=== PATIENT | female | born 1950 | race Caucasian/White ===

== ENCOUNTER 2017-08-16 14:47 | Outpatient (RCR) | payer MEDICARE, OTHER ==
--- NOTE | 2017-08-13 13:10 | Diagnostic Imaging Report ---
INDICATION: Cough and chest pain. TECHNIQUE: PA and lateral views of the chest were obtained at 1:22 PM. FINDINGS: The heart is normal in size. The mediastinal silhouette is unremarkable. The lungs are clear. There is no pneumothorax or pleural fluid. A Port-A-Cath is seen with the tip overlying the mid SVC. There is no acute appearing finding. There is a right shoulder prosthesis. The patient has had prior lumbar fusion. IMPRESSION: No acute process in the chest. Dictated by: Dictated on workstation # [id number]
[~2017-08-16 14:47] MED LIST: ASP81CT PO; D50KC PO; ESOM10SU PO; FAMO20TA73 PO; FENO135C PO; LEVO500T69 PO; LORA5SOL57 PO; LVT.15T PO; METF500T8 PO; METR500T PO; OMEP-10 PO; PRD50T PO; PRED20TA PO; PROP60TA16 PO; VITORIN PO; VNL75CCR PO
== END 2017-11-11 | disposition home or self-care (01) ==
LOC: RAD 14:47
PROVIDERS: ATTEND Family Medicine
DX: R07.9 Chest pain, unspecified (principal); R05 Cough
CPT/HCPCS: 71046; 87070; 87205

== ENCOUNTER → 2017-09-12 | Outpatient (CLI) | payer MEDICARE, OTHER ==
--- NOTE | 2017-09-12 13:42 | Diagnostic Imaging Report ---
CLINICAL INDICATION: Patient with migraines, equilibrium issues x2 days. EXAM: Axial CT scan of the brain performed without IV contrast. COMPARISON: Head CT without IV contrast dated 05/16/2009. MRI of the brain without and with IV contrast dated 10/12/2010. FINDINGS: There is no evidence of acute cerebral infarct, intracranial hemorrhage, or gross mass effect. The brain parenchymal volume appears appropriate for patient's age. There is normal gerber-white matter distinction. There is no significant midline shift or herniation. There is no evidence of hydrocephalus. The basal cisterns are unremarkable. The skull, extracranial soft tissue, and orbits are unremarkable. The paranasal sinuses are unremarkable. Temporal bones show no significant abnormality. IMPRESSION: Unremarkable CT scan of the brain for age. Dictated by: Dictated on workstation # [id number]
== END ==
LOC: RAD 12:54
PROVIDERS: ATTEND Family Medicine
DX: G43.909 Migraine, unspecified, not intractable, without status migrainosus (principal); R41.0 Disorientation, unspecified
CPT/HCPCS: 70450

== ENCOUNTER → 2019-01-06 | Outpatient (CLI) | payer MEDICARE, OTHER ==
--- NOTE | 2019-01-06 14:44 | Diagnostic Imaging Report ---
INDICATION: Dizziness, shortness of breath. FINDINGS: Right IJ catheter is at the SVC. There is right shoulder replacement. The lungs are clear. No failure, effusion, or pneumothorax. IMPRESSION: No acute-appearing abnormality. Dictated by: Dictated on workstation # [id number]
== END ==
LOC: RAD 13:54
PROVIDERS: ATTEND Family Medicine
DX: R06.02 Shortness of breath (principal); R05 Cough; R42 Dizziness and giddiness; Z95.828 Presence of other vascular implants and grafts
CPT/HCPCS: 71046

== ENCOUNTER 2020-01-27 05:31 | Outpatient (RCR) | payer MEDICARE, OTHER ==
[~2020-01-27] VITALS: Ht 170.2 cm; Wt 104.5 kg
[~2020-01-27 05:31] MED LIST changes: +ASPI-999 PO; +CALC-250 PO; +CITA10TA12 PO; +HYDR200T46 PO; +LEVO137T2 PO; +MV-M1TAB57 PO; +PROP20TA5 PO
== END 2020-01-27 11:00 | disposition home or self-care (01) ==
LOC: PREOP 05:31
PROVIDERS: ATTEND Surgery
DX: Z01.812 Encounter for preprocedural laboratory examination (principal); R10.13 Epigastric pain; Z20.828 Contact with and (suspected) exposure to other viral communicable diseases
CPT/HCPCS: 87635

== ENCOUNTER → 2020-03-23 | Outpatient (CLI) | payer MEDICARE, OTHER ==
[~2020-03-23] MED LIST changes: +PANT40TA2 PO; +SUCR1TAB36 PO
--- NOTE | 2020-03-23 12:50 | Diagnostic Imaging Report ---
EXAMINATION: CHEST (PA AND LATERAL) CLINICAL INDICATION: 70-year-old female, chest tightness. COMPARISON: January 06, 2019. FINDINGS: There is a right total reverse shoulder prosthesis. There is cervical spine hardware. There is a right-sided port catheter with tip overlying the mid SVC. Stable overall appearance of the cardia mediastinal silhouette. There are streaky opacities in the left midlung and right mid to lower lung zone which are a change since the comparison exam. There is no identified pneumothorax. There is no pleural effusion. There are degenerative changes of the spine. There is incompletely imaged lumbar spine hardware. IMPRESSION: 1. New streaky opacities in the left midlung and right mid to lower lung zone which may relate to infiltrate and/or atelectasis. Dictated by: Dictated on workstation # [id number]
== END ==
LOC: RAD 12:03
PROVIDERS: ATTEND Family Medicine
DX: R07.89 Other chest pain (principal); R91.8 Other nonspecific abnormal finding of lung field; Z20.828 Contact with and (suspected) exposure to other viral communicable diseases
CPT/HCPCS: 71046

== ENCOUNTER 2021-03-01 13:07 | Day surgery (SDC) | payer MEDICARE, OTHER ==
[~2021-03-01] VITALS: Ht 168.9 cm; Wt 110.9 kg
[2021-03-01] MEDS ORDERED: NS IV 1000 ML 1,000 ML IV ONE (13:30)
[2021-03-01 14:10] LABS: BASOPHILS # (AUTO) 0.1 10^3/uL (0.0-0.1); BASOPHILS % (AUTO) 1 % (0-10); EOSINOPHILS # (AUTO) 0.2 10^3/uL (0.0-0.3); EOSINOPHILS % (AUTO) 3 % (0-10); HEMATOCRIT 35 % (35-52); HEMOGLOBIN 11.4 g/dL (11.5-16.0); LYMPHOCYTES # (AUTO) 1.6 10^3/uL (1.0-4.0); LYMPHOCYTES % (AUTO) 20 % (12-44); MEAN CORPUSCULAR HEMOGLOBIN 30 pg (25-34); MEAN CORPUSCULAR HGB CONC 32 g/dL (32-36); MEAN CORPUSCULAR VOLUME 93 fL (80-99); MEAN PLATELET VOLUME 9.5 fL (9.0-12.2); MONOCYTES # (AUTO) 0.8 10^3/uL (0.0-1.0); MONOCYTES % (AUTO) 10 % (0-12); NEUTROPHILS # (AUTO) 5.2 10^3/uL (1.8-7.8); NEUTROPHILS % (AUTO) 66 % (42-75); PLATELET COUNT 298 10^3/uL (130-400); WHITE BLOOD COUNT 7.9 10^3/uL (4.3-11.0)
[2021-03-01 14:40] LABS: ALBUMIN 3.6 GM/DL (3.2-4.5); BILIRUBIN,TOTAL 0.3 MG/DL (0.1-1.0); CALCIUM 8.9 MG/DL (8.5-10.1); CREATININE SERUM 0.79 MG/DL (0.60-1.30); TOTAL PROTEIN 6.3 GM/DL (6.4-8.2)
[2021-03-01 15:05] VITALS: BP 111/69
== END 2021-03-01 15:05 | disposition home or self-care (01) ==
LOC: SDC 13:07
PROVIDERS: ATTEND Family Medicine
DX: I95.9 Hypotension, unspecified (principal); R55 Syncope and collapse
CPT/HCPCS: 36415; 80053; 85025; 96360

== ENCOUNTER 2021-08-14 11:30 | Emergency (ER) | payer MEDICARE, OTHER ==
[~2021-08-14] VITALS: Ht 170.2 cm; Wt 113.4 kg
--- NOTE | 2021-08-14 11:46 | ED Trauma-Multisystem ---
General Chief Complaint: Trauma-Non Activation Stated Complaint: SYNCOPE Source of Information: Patient Exam Limitations: No Limitations History of Present Illness Date Seen by Provider: Aug 14, 2021 Time Seen by Provider: 11:32 Initial Comments Patient is a 71-year-old female who was brought from the waiting area in the hospital after falling out of a wooden chair. Patient states that the chair gave way and she fell over to the side, onto her back, right hip and subsequently her left shoulder. She did hit her head on the floor/chair. No loss of consciousness was reported. She is complaining of left shoulder and clavicle pain. She is complaining of right hip pain, midthoracic back pain. She is not nauseous. She is not vomiting. No chest pain or abdominal pain. No recent illnesses. She is on aspirin daily. No other blood thinners. She was not able to get up from the floor under her own power. She was placed in a cervical collar and loaded onto a backboard, then onto a stretcher and brought to the emergency department. She has not eaten this morning. All other review of systems reviewed and negative except as stated Occurred: Just Prior to Arrival Severity: Mild ("3" now that she is on the bed off the back coard) Pain/Injury Location: Back, Lower Extremity (right hip), Upper Extremity (left shoulder), Neck Method of Injury: Fall Modifying Factors: No Movement Loss of Consciousness: No Loss of Consciousness Associated Symptoms (Fall): Denies Symptoms Allergies and Home Medications Allergies Coded Allergies: ampicillin (Verified Allergy, Unknown, 01/25/20) diazepam (Verified Allergy, Unknown, 01/25/20) diphenhydramine (Verified Allergy, Unknown, seizures, 01/25/20) propoxyphene HCl (Verified Allergy, Unknown, 01/25/20) Patient Home Medication List Home Medication List Reviewed: Yes Aspirin (Aspirin) 81 Mg Tab.chew, 81 MG PO DAILY, (Reported) Entered as Reported by: BRADFORD CURRY on 01/25/20 1344 Cholecalciferol (Vitamin D3) (Vitamin D3) 125 Mcg Tablet, 125 MCG PO DAILY, (Reported) Entered as Reported by: BRADFORD CURRY on 01/25/20 1344 Citalopram Hydrobromide (Celexa) 10 Mg Tablet, 20 MG PO DAILY, (Reported) Entered as Reported by: BRADFORD CURRY on 01/25/20 1344 Hydroxychloroquine Sulfate (Hydroxychloroquine Sulfate) 200 Mg Tablet, 200 MG PO BID, (Reported) Entered as Reported by: BRADFORD CURRY on 01/25/20 1344 Levothyroxine Sodium (Levothyroxine Sodium) 137 Mcg Tablet, 137 MCG PO DAILY, (Reported) Entered as Reported by: BRADFORD CURRY on 01/25/20 1344 Mv-Mn/Folic Acid/Calcium/Vit K (Women's 50 Plus Multivit Tab) 1 Each Tablet, 1 EACH PO DAILY, (Reported) Entered as Reported by: BRADFORD CURRY on 01/25/20 1344 Pantoprazole Sodium (Protonix) 40 Mg Tablet.dr, 40 MG PO DAILY Prescribed by: RITA DURAN on 02/01/20 0853 Propranolol HCl (Propranolol HCl) 20 Mg Tablet, 20 MG PO BID, (Reported) Entered as Reported by: BRADFORD CURRY on 01/25/20 1344 Sucralfate (Carafate) 1 Gm Tablet, 1 GM PO QID Prescribed by: RITA DURAN on 02/01/20 0853 Review of Systems Review of Systems Constitutional: see HPI Eyes: No Symptoms Reported Ears: No Symptoms Reported Nose: No Symptoms Reported Mouth: No Symptoms Reported Throat: No Symptoms to Report Respiratory: no symptoms reported Cardiovascular: No Symptoms Reported Gastrointestinal: no symptoms reported Genitourinary: no symptoms reported : No Musculoskeletal: back pain, joint pain (left shoulder, right hip) Skin: no symptoms reported All Other Systems Reviewed Negative Unless Noted: Yes Past Gabfski-Bnnlha-Lylivy Hx Seasonal Allergies Seasonal Allergies: Yes Past Medical History Surgeries: Yes (bilat TKR, bilat feet, bilat hips rep, bilat shoulder, hiatal hernia, back ) Abdominal, Gallbladder, Hysterectomy, Orthopedic Respiratory: Yes (chronic bronchitis) Chronic Bronchitis Cardiac: No ("SEVERAL HEART CATHS") Neurological: Yes (BELLS PALSY) Reproductive Disorders: No Genitourinary: No Gastrointestinal: Yes (gerd, peptic ulcer,diverticulosis) Gastroesophageal Reflux, Diverticulosis Musculoskeletal: No Endocrine: Yes Hypothyroidsim HEENT: Yes Glaucoma Cancer: No Psychosocial: Yes Anxiety Integumentary: No Blood Disorders: No Family Medical History No Pertinent Family Hx Physical Exam Vital Signs Vital Signs - First Documented 08/14/21 11:30 Temp 36.2 Pulse 72 Resp 25 B/P (MAP) 141/97 (112) Pulse Ox 97 O2 Delivery Room Air Height, Weight, BMI Height: 5'7" Weight: 205lbs. oz. [id number]; 36.07 BMI Method:Stated General Appearance: WD/WN, Anxious Head: No Evidence of Injury Eyes: Bilateral Eye Normal Inspection, Bilateral Eye PERRL, Bilateral Eye EOMI Ears, Nose, Throat: Hearing Grossly Normal Neck: Other (immobilized in cervical collar) Cardiovascular: Regular Rate, Rhythm, Normal Peripheral Pulses Respiratory: Normal Breath Sounds, No Accessory Muscle Use, No Respiratory Distress Gastrointestinal: Non Tender, Soft Back: Normal Inspection (tenderness about T8-T10. no lesions, erythema - she has a scar in the midline over the Lumbar spine) Extremity: No Calf Tenderness, No Pedal Edema, Pelvis Stable (right hip tenderness over the trochanter, right leg is not shortened or rotated; normal NV; left shoulder tenderness over the AC space; decreased ROM secondary to pain. scar over the front of the left shoulder; distal NVI) Neurologic/Psychiatric: Alert, Oriented x3, No Motor/Sensory Deficits, Normal Mood/Affect Skin: Normal Color, Warm/Dry [place] Coma Score Best Eye Response ([place]): (4) Open Spontaneously Best Verbal Response ([place]): (5) Oriented Best Motor Response ([place]): (6) Obeys Commands [place] Total: 15 Progress/Results/Core Measures Results/Orders My Orders Orders - JOSE OCHOA MD Chest 1 View, Ap/Pa Only (08/14/21 11:39) Pelvis With Right Hip 2-3views (08/14/21 11:39) Shoulder, Left, 3 Views (08/14/21 11:39) Ct Thoracic Spine Wo (08/14/21 11:39) Ct Head/Cervical Spine Wo (08/14/21 11:39) Acetaminophen Tablet (Tylenol Tablet) (08/14/21 13:00) Vital Signs/I&O 08/14/21 11:30 Temp 36.2 Pulse 72 Resp 25 B/P (MAP) 141/97 (112) Pulse Ox 97 O2 Delivery Room Air Progress Progress Note : Time: 12:59 Progress Note Cervical collar removed at this time, patient demonstrates good active range of motion of the head and neck. No complaints of midline pain. No complaints of weakness or paresthesias. X-rays of the pelvis and right hip and left shoulder are reviewed by radiology and read as negative. CT scan of the head, cervical spine and thoracic spine are also read as no acute bony abnormalities. She is offered Tylenol and an ice pack. Recommended to take Tylenol every 6 hours as needed for pain. She advised that she cannot take ibuprofen due to her kidneys. I have advised her to drink plenty of fluids to stay well-hydrated, alternate heat and ice packs. She verbalized understanding. All questions are sought and answered. Diagnostic Imaging Diagonstic Imaging: Xray Plain Films/CT/US/NM/MRI: chest Comments [facility] [place] [facility] REC#: [id number] PT STATUS: REG ER : 1950 PHYSICIAN: JOSE OCHOA MD ADMIT DATE: 08/14/21/ER Draft Date of Exam:08/14/21 CHEST 1 VIEW, AP/PA ONLY INDICATION: Fall and chest pain Frontal chest obtained at 1221 p.m. and compared to 03/23/2020. Heart and mediastinal silhouette are normal in appearance. Right-sided Port-A-Cath is unchanged. There is no focal infiltrate, pneumothorax or pleural fluid. There is no overt bony abnormality in the chest. IMPRESSION: No acute process in the chest. Dictated on workstation # [id number] Dict: 08/14/21 1232 Trans: 08/14/[address] [facility] [id number] Interpreted by: DIMPLE DARBY MD Electronically signed by: Diagonstic Imaging: CT Plain Films/CT/US/NM/MRI: c-spine, head Comments [facility] [place] [facility] REC#: [id number] PT STATUS: REG ER : 1950 PHYSICIAN: JOSE OCHOA MD ADMIT DATE: 08/14/21/ER Draft Date of Exam:08/14/21 CT HEAD/CERVICAL SPINE WO CLINICAL INDICATION: Patient's chair broke falling. Patient has neck pain and left shoulder pain. EXAM: Head CT without IV contrast with sagittal and coronal reformations. Axial CT scan of the cervical spine with sagittal and coronal reformations. Auto Exposure Controls were utilized during the CT exam to meet ALARA standards for radiation dose reduction. COMPARISON: Head CT without contrast dated 09/12/2017. FINDINGS: HEAD CT: There is no evidence of acute cerebral infarct, intracranial hemorrhage, or gross mass effect. The brain parenchymal volume appears appropriate for patient's age. There is normal gerber-white matter distinction. There is no significant midline shift or herniation. There is no evidence of hydrocephalus. The basal cisterns are unremarkable. There is no skull fracture. Hyperostosis frontalis interna is noted. Otherwise, the skull, extracranial soft tissue, and orbits are unremarkable. The paranasal sinuses are unremarkable. Temporal bones show no significant abnormality. CERVICAL SPINE: Of note, the C5 through C7 vertebra are obscured by streak artifact limiting evaluation. There is no gross cervical spine fracture as visualized. Cervical spine is best visualized on the axial sequences and the sagittal reformatted images are most obscured. There are postop changes of the cervical spine with C3-C4 and C6-C7 anterior cervical disk fusion hardware. There is solid bony bridging/fusion seen at these levels. There are cervical spine vertebral body spurs and facet arthropathy. There is no significant neck soft tissue abnormality. Visualized upper lung benz are clear. Right IJ central line is noted. IMPRESSION: 1: There is no evidence of acute intracranial process. There is no skull fracture. 2: Streak artifact obscures portions of the cervical spine. There is no acute cervical spine fracture or dislocation as visualized. Dictated on workstation # [id number] Dict: 08/14/21 1217 Trans: 08/14/21 1230 [id number] Interpreted by: KEISHA TORRES MD Electronically signed by: [facility] Imaging: Xray Plain Films/CT/US/NM/MRI: pelvis, hip Comments [facility] [place] NAME: [facility] REC#: [id number] PT STATUS: REG ER : 1950 PHYSICIAN: JOSE OCHOA MD ADMIT DATE: 08/14/21/ER Draft Date of Exam:08/14/21 PELVIS WITH RIGHT HIP 2-3VIEWS INDICATION: Fall with right hip pain AP pelvis and AP and oblique views of the right hip are obtained. There are bilateral hip prostheses. There is no fracture or acute bony abnormality. There is no evidence of device loosening. There are degenerative findings in the pubic symphysis. IMPRESSION: Postoperative changes with bilateral hip arthroplasties. No acute fracture. Dictated on workstation # [id number] Dict: 08/14/21 1230 Trans: 08/14/[address] [facility] [id number] Interpreted by: DIMPLE DARBY MD Electronically signed by: DiaRafternstic Imaging: Xray Plain Films/CT/US/NM/MRI: other (shoulder) Comments [facility] [place] NAME: [facility] REC#: [id number] PT STATUS: REG ER : 1950 PHYSICIAN: JOSE OCHOA MD ADMIT DATE: 08/14/21/ER Draft Date of Exam:08/14/21 SHOULDER, LEFT, 3 VIEWS INDICATION: Left shoulder pain post injury. TECHNIQUE: AP, oblique, and transscapular views of the left shoulder were obtained. FINDINGS: No fracture or acute bony abnormality is seen. The left shoulder prosthesis is in good alignment with no sign of fracture or device loosening. There is mild degenerative change of the AC joint. IMPRESSION: Left shoulder arthroplasty with no acute appearing abnormality. Dictated on workstation # [id number] Dict: 08/14/21 1231 Trans: 08/14/21 1233 [id number] Interpreted by: DIMPLE DARBY MD Electronically signed by: Diagonstic Imaging: CT Plain Films/CT/US/NM/MRI: other (thoracic spine) Comments [facility] [place] NAME: [facility] REC#: [id number] PT STATUS: REG ER : 1950 PHYSICIAN: JOSE OCHOA MD ADMIT DATE: 08/14/21/ER Draft Date of Exam:08/14/21 CT THORACIC SPINE WO PROCEDURE: CT thoracic spine without contrast. TECHNIQUE: Multiple axial computerized tomography images were obtained from the base of the thoracic spine to the vertex without intravenous contrast. Auto Exposure Controls were utilized during the CT exam to meet ALARA standards for radiation dose reduction. INDICATION: Back pain after injury, fall out of chair. COMPARISON: CT head and C-spine from earlier same day. FINDINGS: There is no acute fracture or traumatic malalignment within the thoracic spine. No paravertebral hematoma. No high-grade spinal stenosis. There are scattered sites of calcified disc protrusions causing mild spinal stenosis in the midthoracic spine. The visualized portions of the ribs are intact. A small amount of dependent atelectasis is present within the visualized lungs. No pleural effusion. IMPRESSION: No acute fracture within the thoracic spine. Dictated on workstation # [id number] Dict: 08/14/21 1215 Trans: 08/14/21 1221 [id number] Interpreted by: TRUDI NDIAYE MD Electronically signed by: Departure Impression Primary Impression: Contusion Qualified Codes: S40.012A - Contusion of left shoulder, initial encounter Additional Impression: Musculoskeletal back pain Disposition: 01 HOME, SELF-CARE Condition: Stable Departure-Patient Inst. Decision time for Depature: 12:52 Referrals: BRENDA VANESSA DO (PCP/Family) Primary Care Physician Patient Instructions: Contusion (DC) Add. Discharge Instructions: Drink plenty of fluids to stay well-hydrated. You can take [id number] Tylenol, 2 extra strength tablets or ibuprofen 600mg (3 tablets), every 6 hours as needed for pain. Always take ibuprofen with food. Follow-up with Dr. Vanessa, your primary care provider. Return to the emergency room for any new, concerning or emergent complaints. Copy Copies To 1: BRENDA VANESSA KATHRYN M MD Aug 14, 2021 11:46
--- NOTE | 2021-08-14 12:21 | Diagnostic Imaging Report ---
PROCEDURE: CT thoracic spine without contrast. TECHNIQUE: Multiple axial computerized tomography images were obtained from the base of the thoracic spine to the vertex without intravenous contrast. Auto Exposure Controls were utilized during the CT exam to meet ALARA standards for radiation dose reduction. INDICATION: Back pain after injury, fall out of chair. COMPARISON: CT head and C-spine from earlier same day. FINDINGS: There is no acute fracture or traumatic malalignment within the thoracic spine. No paravertebral hematoma. No high-grade spinal stenosis. There are scattered sites of calcified disc protrusions causing mild spinal stenosis in the midthoracic spine. The visualized portions of the ribs are intact. A small amount of dependent atelectasis is present within the visualized lungs. No pleural effusion. IMPRESSION: No acute fracture within the thoracic spine. Dictated by: Dictated on workstation # [id number]
--- NOTE | 2021-08-14 12:31 | Diagnostic Imaging Report ---
CLINICAL INDICATION: Patient's chair broke falling. Patient has neck pain and left shoulder pain. EXAM: Head CT without IV contrast with sagittal and coronal reformations. Axial CT scan of the cervical spine with sagittal and coronal reformations. Auto Exposure Controls were utilized during the CT exam to meet ALARA standards for radiation dose reduction. COMPARISON: Head CT without contrast dated 09/12/2017. FINDINGS: HEAD CT: There is no evidence of acute cerebral infarct, intracranial hemorrhage, or gross mass effect. The brain parenchymal volume appears appropriate for patient's age. There is normal gerber-white matter distinction. There is no significant midline shift or herniation. There is no evidence of hydrocephalus. The basal cisterns are unremarkable. There is no skull fracture. Hyperostosis frontalis interna is noted. Otherwise, the skull, extracranial soft tissue, and orbits are unremarkable. The paranasal sinuses are unremarkable. Temporal bones show no significant abnormality. CERVICAL SPINE: Of note, the C5 through C7 vertebra are obscured by streak artifact limiting evaluation. There is no gross cervical spine fracture as visualized. Cervical spine is best visualized on the axial sequences and the sagittal reformatted images are most obscured. There are postop changes of the cervical spine with C3-C4 and C6-C7 anterior cervical disk fusion hardware. There is solid bony bridging/fusion seen at these levels. There are cervical spine vertebral body spurs and facet arthropathy. There is no significant neck soft tissue abnormality. Visualized upper lung benz are clear. Right IJ central line is noted. IMPRESSION: 1: There is no evidence of acute intracranial process. There is no skull fracture. 2: Streak artifact obscures portions of the cervical spine. There is no acute cervical spine fracture or dislocation as visualized. Dictated by: Dictated on workstation # [id number]
--- NOTE | 2021-08-14 12:33 | Diagnostic Imaging Report ---
INDICATION: Left shoulder pain post injury. TECHNIQUE: AP, oblique, and transscapular views of the left shoulder were obtained. FINDINGS: No fracture or acute bony abnormality is seen. The left shoulder prosthesis is in good alignment with no sign of fracture or device loosening. There is mild degenerative change of the AC joint. IMPRESSION: Left shoulder arthroplasty with no acute appearing abnormality. Dictated by: Dictated on workstation # [id number]
--- NOTE | 2021-08-14 12:34 | Diagnostic Imaging Report ---
INDICATION: Fall with right hip pain AP pelvis and AP and oblique views of the right hip are obtained. There are bilateral hip prostheses. There is no fracture or acute bony abnormality. There is no evidence of device loosening. There are degenerative findings in the pubic symphysis. IMPRESSION: Postoperative changes with bilateral hip arthroplasties. No acute fracture. Dictated by: Dictated on workstation # [id number]
--- NOTE | 2021-08-14 12:35 | Diagnostic Imaging Report ---
INDICATION: Fall and chest pain Frontal chest obtained at 1221 p.m. and compared to 03/23/2020. Heart and mediastinal silhouette are normal in appearance. Right-sided Port-A-Cath is unchanged. There is no focal infiltrate, pneumothorax or pleural fluid. There is no overt bony abnormality in the chest. IMPRESSION: No acute process in the chest. Dictated by: Dictated on workstation # [id number]
[2021-08-14] MEDS ORDERED: ACETAMINOPHEN 500 MG TAB (TYLENOL) PO ONE (13:00)
[2021-08-14 13:09] VITALS: BP 152/79
== END 2021-08-14 13:09 | disposition home or self-care (01) ==
LOC: EDUNIT# 11:35 → ER 11:36
DX: S40.012A Contusion of left shoulder, initial encounter (principal); M54.50 Low back pain, unspecified; G51.0 Bell's palsy; E03.9 Hypothyroidism, unspecified; F41.9 Anxiety disorder, unspecified; K21.9 Gastro-esophageal reflux disease without esophagitis; Z79.82 Long term (current) use of aspirin; Z79.890 Hormone replacement therapy; W22.8XXA Striking against or struck by other objects, initial encounter
CPT/HCPCS: 70450; 71045; 72125; 72128; 73030

== ENCOUNTER 2021-10-31 14:11 | Inpatient (IN) | payer MEDICARE, OTHER ==
[~2021-10-31] VITALS: Ht 170 cm; Wt 113.4 kg
[2021-10-31] MEDS ORDERED: AZITHROMYCIN INJECTION 500 MG in NS (IVPB) 250 ML IV ONE (14:45)
[2021-10-31] MEDS ORDERED: PATIENT MAY USE OWN MEDS, ALL PO SCH (14:45)
[2021-10-31] MEDS ORDERED: ONDANSETRON 4 MG/2 ML (SDV) Z0FRAN IVP PRN (15:00)
[2021-10-31 15:18] LABS: BASOPHILS # (AUTO) 0.1 10^3/uL (0.0-0.1); BASOPHILS % (AUTO) 0 % (0-10); EOSINOPHILS % (AUTO) 0 % (0-10); HEMATOCRIT 38 % (35-52); HEMOGLOBIN 12.5 g/dL (11.5-16.0); LYMPHOCYTES # (AUTO) 1.3 10^3/uL (1.0-4.0); LYMPHOCYTES % (AUTO) 9 % (12-44); MEAN CORPUSCULAR HEMOGLOBIN 30 pg (25-34); MEAN CORPUSCULAR HGB CONC 33 g/dL (32-36); MEAN CORPUSCULAR VOLUME 90 fL (80-99); MEAN PLATELET VOLUME 10.3 fL (9.0-12.2); MONOCYTES # (AUTO) 1.7 10^3/uL (0.0-1.0); MONOCYTES % (AUTO) 12 % (0-12); NEUTROPHILS # (AUTO) 11.3 10^3/uL (1.8-7.8); NEUTROPHILS % (AUTO) 79 % (42-75); PLATELET COUNT 164 10^3/uL (130-400); WHITE BLOOD COUNT 14.4 10^3/uL (4.3-11.0)
--- NOTE | 2021-10-31 15:20 | Diagnostic Imaging Report ---
INDICATION: Shortness of breath. COMPARISON: 03/23/2020. FINDINGS: Frontal and lateral views of the chest demonstrate clear lungs bilaterally. The heart is normal. There is no pneumothorax. There is a Port-A-Cath in stable position. IMPRESSION: Negative chest. Dictated by: Dictated on workstation # [id number]
[2021-10-31 15:32] LABS: ALBUMIN 3.7 GM/DL (3.2-4.5)
[2021-10-31 15:33] LABS: POTASSIUM 3.7 MMOL/L (3.6-5.0)
[2021-10-31 15:34] LABS: CALCIUM 8.7 MG/DL (8.5-10.1)
[2021-10-31 15:35] LABS: TOTAL PROTEIN 6.8 GM/DL (6.4-8.2)
[2021-10-31 15:37] LABS: BILIRUBIN,TOTAL 1.1 MG/DL (0.1-1.0)
[2021-10-31 15:39] LABS: CREATININE SERUM 1.1 MG/DL (0.60-1.30)
[2021-10-31 15:40] VITALS: BP 106/58
[2021-10-31 15:42] LABS: BASOPHILS % (MANUAL) 3 %; LYMPHOCYTES % (MANUAL) 14 %; MONOCYTES % (MANUAL) 12 %; NEUTROPHILS % (MANUAL) 71 %; RBC MORPH NORMAL
[2021-10-31] MEDS: LACTATED RINGERS 1,000 ML IV SCH (16:17)
[2021-10-31] MEDS: cefTRIAXone 1 GM PRE-MIX 50 ML IV SCH (16:18)
[2021-10-31] MEDS ORDERED: ENOXAPARIN 40 MG/0.4 ML (LOVENOX) SYR SC SCH (16:30)
--- NOTE | 2021-10-31 17:15 | History & Physical ---
History of Present Illness History of Present Illness Reason for visit/HPI This is a 71 year old female with a history of COPD who was seen in my office for a 1 day follow up on clinical pneumonia. She started with fever, cough, weakness, bodyaches, dizziness and nausea 5 days prior. She had 2 negative home COVID tests as well as a negative Influenza A and B test in my office. She refused admission the day prior so she was given Rocephin IM, started on a scopolamine patch with zofran as well as an albuterol inhaler. When she was seen today, she still was very weak and was having worsening respiratory difficulties. She agreed to admission today. Date of Admission October 31, 2021 at 14:33 Date Seen by a Provider: October 31, 2021 Time Seen by a Provider: 14:00 I consulted on this patient on 10/31/21 17:09 Attending Physician Brenda Chaves DO Admitting Physician Brenda Chaves DO Consult Allergies and Home Medications Allergies Coded Allergies: ampicillin (Verified Allergy, Unknown, 01/25/20) diazepam (Verified Allergy, Unknown, 01/25/20) diphenhydramine (Verified Allergy, Unknown, seizures, 01/25/20) propoxyphene HCl (Verified Allergy, Unknown, 01/25/20) Patient Home Medication List Home Medication List Reviewed: Yes Aspirin (Aspirin) 81 Mg Tab.chew, 81 MG PO DAILY, (Reported) Entered as Reported by: BRADFORD CURRY on 01/25/20 1344 Cholecalciferol (Vitamin D3) (Vitamin D3) 125 Mcg Tablet, 125 MCG PO DAILY, (Reported) Entered as Reported by: BRADFORD CURRY on 01/25/20 1344 Citalopram Hydrobromide (Celexa) 10 Mg Tablet, 20 MG PO DAILY, (Reported) Entered as Reported by: BRADFORD CURRY on 01/25/20 1344 Hydroxychloroquine Sulfate (Hydroxychloroquine Sulfate) 200 Mg Tablet, 200 MG PO BID, (Reported) Entered as Reported by: BRADFORD CURRY on 01/25/20 1344 Levothyroxine Sodium (Levothyroxine Sodium) 137 Mcg Tablet, 137 MCG PO DAILY, (Reported) Entered as Reported by: BRADFORD CURRY on 01/25/20 1344 Mv-Mn/Folic Acid/Calcium/Vit K (Women's 50 Plus Multivit Tab) 1 Each Tablet, 1 EACH PO DAILY, (Reported) Entered as Reported by: BRADFORD CURRY on 01/25/20 1344 Pantoprazole Sodium (Protonix) 40 Mg Tablet.dr, 40 MG PO DAILY Prescribed by: RITA DURAN on 02/01/20 0853 Propranolol HCl (Propranolol HCl) 20 Mg Tablet, 20 MG PO BID, (Reported) Entered as Reported by: BRADFORD CURRY on 01/25/20 1344 Sucralfate (Carafate) 1 Gm Tablet, 1 GM PO QID Prescribed by: RITA DURAN on 02/01/20 0853 Past Ykxfygr-Pwxrxd-Jvoorv Hx Patient Social History Marrital Status: Employed/Student: retired Tobacco Use?: No Smoking Status: Never a Smoker Use of E-Cig and/or Vaping dev: No Substance use?: No Alcohol Use?: No Pt feels they are or have been: No Immunizations Up To Date Date of Influenza Vaccine: Apr 28, 2014 First/Initial COVID19 Vaccinat: SPRING 2020 Second COVID19 Vaccination Sarmad: SPRING 2020 Date of Pneumonia Vaccine: Jun 17, 2011 Seasonal Allergies Seasonal Allergies: Yes Current Status status: No status: No Advance Directives: No Advance Directive Location: Home Communicates: Verbally Primary Language: Nigerian Preferred Spoken Language: Nigerian Is interpretation needed?: No Implanted or Applied Medical D: Orthopedic hardware Past Medical History Surgeries: Abdominal, Gallbladder, Hysterectomy, Orthopedic Chronic Bronchitis Gastroesophageal Reflux, Diverticulosis Hypothyroidsim Glaucoma Anxiety Blood Disorders: No Family Medical History No Pertinent Family Hx Review of Systems Constitutional: chills, diaphoresis, fever, malaise, weakness EENTM: nose congestion, throat pain Respiratory: cough, dyspnea on exertion, short of breath, wheezing Cardiovascular: No no symptoms reported, No see HPI, No chest pain, No edema, No Hx of Intervention, No palpitations, No syncope, No vascular heart diseas, No other Gastrointestinal: loss of appetite, nausea, vomiting Genitourinary: decreased output Musculoskeletal: muscle pain, muscle weakness Skin: No no symptoms reported, No see HPI, No change in color, No change in hair/nails, No dryness, No hx of skin cancer, No lesions, No lumps, No pruritus, No rash, No other Psychiatric/Neurological: Headache, Weakness Physical Exam Vital Signs Vital Signs - First Documented 10/31/21 15:40 Temp 38.2 Pulse 77 Resp 18 B/P (MAP) 106/58 (74) Pulse Ox 95 O2 Delivery Room Air Capillary Refill : Height, Weight, BMI Height: 5'7" Weight: 205lbs. oz. 92.880179xa; 39.23 BMI Method:Stated General Appearance: Moderate Distress HEENT: Pharyngeal Erythema, Other (mucous membranes dry) Neck: Supple Respiratory: Crackles (left base), Decreased Breath Sounds, Respiratory Distress, Rhonci Cardiovascular: Regular Rate, Rhythm Gastrointestinal: Normal Bowel Sounds, Non Tender, Soft Rectal: Deferred Extremity: Non Tender, No Calf Tenderness, No Pedal Edema Neurologic/Psychiatric: Alert, Oriented x3 Skin: Warm/Dry Comments Laboratory Tests 10/31/21 15:04: White Blood Count 14.4H, Red Blood Count 4.23, Hemoglobin 12.5, Hematocrit 38, Mean Corpuscular Volume 90, Mean Corpuscular Hemoglobin 30, Mean Corpuscular Hemoglobin Concent 33, Red Cell Distribution Width 13.2, Platelet Count 164, Mean Platelet Volume 10.3, Immature Granulocyte % (Auto) 0, Neutrophils (%) (Auto) 79H, Lymphocytes (%) (Auto) 9L, Monocytes (%) (Auto) 12, Eosinophils (%) (Auto) 0, Basophils (%) (Auto) 0, Neutrophils # (Auto) 11.3H, Lymphocytes # (Auto) 1.3, Monocytes # (Auto) 1.7H, Eosinophils # (Auto) 0.0, Basophils # (A uto) 0.1, Immature Granulocyte # (Auto) 0.1, Neutrophils % (Manual) 71, Lymphocytes % (Manual) 14, Monocytes % (Manual) 12, Basophils % (Manual) 3, Blood Morphology Comment NORMAL, Sodium Level 130L, Potassium Level 3.7, Chl oride Level 94L, Carbon Dioxide Level 25, Anion Gap 11, Blood Urea Nitrogen 16, Creatinine 1.10, Estimat Glomerular Filtration Rate 53, BUN/Creatinine Ratio 15, Glucose Level 106H, Lactic Acid Level 1.08, Calcium Level 8.7, Corrected Calcium 8.9, Total Bilirubin 1.1H, Aspartate Amino Transf (AST/SGOT) 23, Alanine Aminotransferase (ALT/SGPT) 30, Alkaline Phosphatase 71, Total Protein 6.8, Albumin 3.7 Assessment/Plan Assessment and Plan 1. Acute Respiratory Distress--admit on oxygen to keep O2 sat greater than 90% 2. Acute Pneumonia--admit on Rocephin and Zithromax, will repeat COVID testing 3. COPD with acute exacerbation--SVNs with duoneb as well as IV solumedrol Admission Diagnosis Admission Status: Inpatient Order (span 2 midnights) Reason for Inpatient Admission: Will need at least 48hrs IV abx BRENDA CHAVES DO October 31, 2021 17:15
[2021-10-31] MEDS: methylPREDNISolone 40 MG/ML (Solu-MEDROL) VIAL IV SCH ×2 (18:18→23:44)
[2021-10-31] MEDS: RT-ALBUTEROL/IPRATROPIUM 3 ML (DUONEB) VIAL INH SCH ×2 (18:42→21:32)
[2021-10-31] MEDS ORDERED: ZONI100C29 PO ×3 (18:52→18:54)
[2021-10-31 19:35] VITALS: BP 117/56
[2021-10-31] MEDS: ACETAMINOPHEN 325 MG TABLET PO PRN (20:05)
[2021-10-31] MEDS: PANTOPRAZOLE 40 MG (PROTONIX) VIAL IV SCH (20:05)
[2021-10-31 23:44] VITALS: BP 110/68
[2021-11-01] MEDS: RT-ALBUTEROL/IPRATROPIUM 3 ML (DUONEB) VIAL INH SCH ×6 (02:09→21:57)
[2021-11-01] MEDS: LACTATED RINGERS 1,000 ML IV SCH ×2 (02:23→13:27)
[2021-11-01 04:18] VITALS: BP 104/68
[2021-11-01] MEDS: LEVOTHYROXINE 150 MCG (LEVOTHROID) TAB PO SCH (05:39)
[2021-11-01] MEDS: methylPREDNISolone 40 MG/ML (Solu-MEDROL) VIAL IV SCH ×4 (05:39→23:01)
[2021-11-01 06:06] LABS: HEMATOCRIT 35 % (35-52); MEAN CORPUSCULAR HEMOGLOBIN 30 pg (25-34); MEAN CORPUSCULAR HGB CONC 34 g/dL (32-36); MEAN CORPUSCULAR VOLUME 89 fL (80-99); MEAN PLATELET VOLUME 10.4 fL (9.0-12.2); PLATELET COUNT 157 10^3/uL (130-400)
[2021-11-01 06:20] LABS: CALCIUM 8.6 MG/DL (8.5-10.1)
[2021-11-01 06:24] LABS: CREATININE SERUM 0.79 MG/DL (0.60-1.30)
[2021-11-01 07:41] VITALS: BP 116/58
[2021-11-01] MEDS: PANTOPRAZOLE 40 MG (PROTONIX) VIAL IV SCH ×2 (08:42→20:48)
[2021-11-01] MEDS ORDERED: guaiFENesin/CODEINE (ROBITUSSIN AC) 10ML UDC PO PRN (08:45)
[2021-11-01] MEDS: guaiFENesin (MUCINEX) 600 MG TAB PO SCH ×2 (09:40→20:48)
[2021-11-01] MEDS: APIXABAN 5 MG (ELIQUIS) TABLET PO SCH ×2 (09:41→20:48)
[2021-11-01] MEDS ORDERED: CHLORASEPTIC SPRAY 177 ML LIQUID MC PRN (10:00)
[2021-11-01] MEDS: RT--FLUTICASONE/SALMETEROL 113-14 (AIRDUO RespiCLICK) IH SCH ×2 (10:59→18:41)
[2021-11-01 11:23] VITALS: BP 110/71
[2021-11-01] MEDS ORDERED: ACET-2267 PO (12:35)
[2021-11-01] MEDS ORDERED: FLUT16SP22 NSEACH (12:35)
[2021-11-01] MEDS ORDERED: RT-ALBUINH INH (12:35)
[2021-11-01] MEDS ORDERED: BACL10TA PO (12:35)
[2021-11-01] MEDS ORDERED: TRAM50TA3 PO (12:35)
[2021-11-01] MEDS ORDERED: CITA10TA9 PO (12:35)
[2021-11-01] MEDS ORDERED: PANT40TA52 PO (12:35)
[2021-11-01] MEDS ORDERED: LEVO150T6 PO (12:35)
[2021-11-01] MEDS ORDERED: SCOP1PAT10 TD (12:38)
[2021-11-01] MEDS: cefTRIAXone 1 GM PRE-MIX 50 ML IV SCH (14:57)
[2021-11-01 15:55] VITALS: BP 111/59
--- NOTE | 2021-11-01 18:32 | Progress Note ---
Subjective Date Seen by a Provider: November 01, 2021 Time Seen by a Provider: 08:30 Subjective/Events-last exam Fwup pneumonia, acute respiratory distress, COPD exacerbation, dehydration, nauseas, dizziness, hypotension, Hx of DVT, weakness. Still with cough. Feeling a little bit better. Focused Exam Lactate Level 10/31/21 15:04: Lactic Acid Level 1.08 Objective Exam Vital Signs Date Time Temp Pulse Resp B/P (MAP) Pulse Ox O2 Delivery O2 Flow Rate FiO2 11/01/21 15:55 36.6 63 18 111/59 (76) 92 Room Air 11/01/21 14:58 96 Room Air 0.00 11/01/21 11:23 36.2 60 18 110/71 (84) 93 Room Air 11/01/21 11:04 Room Air 0.00 11/01/21 10:59 96 Room Air 0.00 11/01/21 08:00 96 Room Air 11/01/21 07:41 35.8 61 20 116/58 (77) 95 Room Air 11/01/21 06:42 Room Air 0.00 11/01/21 06:37 95 Nasal Cannula 2.00 11/01/21 04:18 35.8 57 18 104/68 (80) 97 Nasal Cannula 2.00 11/01/21 02:09 96 Nasal Cannula 2.00 10/31/21 23:44 36.2 64 18 110/68 (82) 98 Nasal Cannula 2.00 10/31/21 21:32 96 Room Air 10/31/21 21:31 96 Nasal Cannula 2.00 10/31/21 21:30 86 Room Air 10/31/21 20:35 37.2 10/31/21 20:10 96 Room Air 10/31/21 20:05 38.3 10/31/21 19:35 38.3 81 18 117/56 (76) 94 Room Air 10/31/21 18:42 95 Room Air I & O 11/01/21 07:00 Intake Total 2305 ml Output Total 800 ml Balance 1505 ml Capillary Refill : General Appearance: Mild Distress Neck: Supple Respiratory: Lungs Clear, Decreased Breath Sounds Cardiovascular: Regular Rate, Rhythm Gastrointestinal: normal bowel sounds, non tender, soft Extremity: Non Tender, No Calf Tenderness, No Pedal Edema Neurologic/Psychiatric: Alert, Oriented x3 Skin: Warm/Dry Results Lab Laboratory Tests 11/01/21 05:53: White Blood Count 7.0, Red Blood Count 3.96, Hemoglobin 12.0, Hematocrit 35, Mean Corpuscular Volume 89, Mean Corpuscular Hemoglobin 30, Mean Corpuscular Hemoglobin Concent 34, Red Cell Distribution Width 12.9, Platelet Count 157, Mean Platelet Volume 10.4, Sodium Level 132L, Potassium Level 4.0, Chloride Level 97L, Carbon Dioxide Level 22, Anion Gap 13, Blood Urea Nitrogen 14, Creatinine 0.79, Estimat Glomerular Filtration Rate 79, BUN/Creatinine Ratio 18, Glucose Level 176H, Calcium Level 8.6 11/01/21 05:55: Influenza Type A (RT-PCR) Not Detected, Influenza Type B (RT-PCR) Not Detected, SARS-CoV-2 RNA (RT-PCR) Not Detected Microbiology 10/31/21 Blood Culture - Preliminary, Resulted No growth Assessment/Plan Assessment/Plan Assess & Plan/Chief Complaint 1. Acute Pneumonia--continue Zithromax and Rocephin, add mucinex 2. Acute Respiratory Distress--off oxygen, required oxygen overnight, continue SVNs with duoneb 3. COPD with acute exacerbation--continue solumedrol, add advair 4. Dehydration--improved, decrease IVFs 5. Hypotension--hold propranolol and monitor 6. Nausea--improved 7. Dizziness--improved 8. Weakness--up to chair today 9. History of DVT/PE--DC lovenox and resume eliquis Clinical Quality Measures Admission Status Admission Dx 1. Acute Respiratory Distress--admit on oxygen to keep O2 sat greater than 90% 2. Acute Pneumonia--admit on Rocephin and Zithromax, will repeat COVID testing 3. COPD with acute exacerbation--SVNs with duoneb as well as IV solumedrol BRENDA CHAVES DO November 01, 2021 18:32
[2021-11-01 19:59] VITALS: BP 99/63
[2021-11-01 23:02] VITALS: BP 115/60
[2021-11-02] MEDS: RT-ALBUTEROL/IPRATROPIUM 3 ML (DUONEB) VIAL INH SCH ×3 (02:02→10:33)
[2021-11-02] MEDS: LACTATED RINGERS 1,000 ML IV SCH (02:41)
[2021-11-02 04:22] VITALS: BP 110/57
[2021-11-02] MEDS: LEVOTHYROXINE 150 MCG (LEVOTHROID) TAB PO SCH (05:57)
[2021-11-02] MEDS: methylPREDNISolone 40 MG/ML (Solu-MEDROL) VIAL IV SCH ×2 (05:57→12:12)
[2021-11-02] MEDS: RT--FLUTICASONE/SALMETEROL 113-14 (AIRDUO RespiCLICK) IH SCH (06:29)
[2021-11-02 07:34] VITALS: BP 131/72
[2021-11-02] MEDS: guaiFENesin (MUCINEX) 600 MG TAB PO SCH (08:53)
[2021-11-02] MEDS: APIXABAN 5 MG (ELIQUIS) TABLET PO SCH (08:53)
[2021-11-02] MEDS: PANTOPRAZOLE 40 MG (PROTONIX) VIAL IV SCH (08:53)
[2021-11-02] MEDS ORDERED: AZITHROMYCIN 250 MG TAB (ZITHROMAX) PO SCH (09:00)
[2021-11-02 11:11] VITALS: BP 117/73
[2021-11-02] MEDS: ACETAMINOPHEN 325 MG TABLET PO PRN (12:12)
[2021-11-02] MEDS ORDERED: AZIT250T12 PO (12:34)
[2021-11-02] MEDS ORDERED: ALB0.5V INH (12:39)
[2021-11-02] MEDS ORDERED: CEFD300C3 PO (12:39)
[2021-11-02] MEDS ORDERED: PRD20T PO (12:41)
[2021-11-02] MEDS ORDERED: BENZ100C18 PO (12:42)
[2021-11-02] MEDS: cefTRIAXone 1 GM PRE-MIX 50 ML IV SCH (12:44)
[2021-11-02 13:35] VITALS: BP 117/73
--- NOTE | 2021-11-02 16:30 | Physician Query Clarification ---
Physician Query-General Query to Physician: The medical record reflects the following clinical evidence: Clinical Indicators: Admission VS/Labs: Vital Signs: HR 77, RR 18, BP 106/58, SpO2 95% sat on room air decreased to 86% and was started on 02, T 38.2, WBC 14.4, lactic acid 1.08, Risk Factor(s): Pneumonia, Advanced age, did not agree to hospitalization when PNA was initially diagnosised Treatment: azithromycin IV, lactated Ringer's 1 L, ceftriaxone IV, 1. Sepsis, unspecified organism, present on admission 2. Other explanation of clinical findings 3. Unable to determine (no explanation for clinical findings) Please clarify and document your clinical opinion in the progress notes and discharge summary including the definitive and/or presumptive diagnosis, (suspected or probable), related to the above clinical findings. Please include clinical findings supporting your diagnosis. Amada Galo MSN, RN Clinical Head Refrigerating Engineer [phone] [email or web address] PHYSICIAN RESPONSE: Based on the clinical findings in the record, please respond to the query above on this document as an addendum. Physician Response: Physician Response No sepsis If you have questions please contact: Armature Winder: Ext: Thank you for your time and cooperation. Clinical Head Refrigerating Engineer/Armature Winder This is a permanent part of the medical record AMADA GALO November 02, 2021 16:30 BRENDA CHAVES DO November 02, 2021 17:31
--- NOTE | 2021-11-02 17:53 | Discharge Summary ---
Diagnosis/Chief Complaint Date of Admission October 31, 2021 at 14:33 Date of Discharge November 02, 2021 at 13:35 Discharge Date: November 02, 2021 Discharge Diagnosis 1. Acute Pneumonia--improving 2. Acute Respiratory Distress--improved 3. COPD with acute exacerbation--improving 4. Dehydration--improved 5. Hypotension--improved 6. Nausea--improved 7. Dizziness--improved 8. Weakness--improving 9. History of DVT/PE--resume [facility] Reason Hospital Visit This is a 71 year old female with a history of COPD who was seen in my office for a 1 day follow up on clinical pneumonia. She started with fever, cough, weakness, bodyaches, dizziness and nausea 5 days prior. She had 2 negative home COVID tests as well as a negative Influenza A and B test in my office. She refused admission the day prior so she was given Rocephin IM, started on a scopolamine patch with zofran as well as an albuterol inhaler. When she was seen today, she still was very weak and was having worsening respiratory difficulties. She agreed to admission today. Discharge Summary Hospital Course Was the Problem List Reviewed?: Yes Hospital Course This is a 71 year old female with a history of COPD who was seen in my office for a 1 day follow up on clinical pneumonia. She started with fever, cough, weakness, bodyaches, dizziness and nausea 5 days prior. She had 2 negative home COVID tests as well as a negative Influenza A and B test in my office. She refused admission the day prior so she was given Rocephin IM, started on a scopolamine patch with zofran as well as an albuterol inhaler. When she was seen the following day for a recheck, she still was very weak and was having worsening respiratory difficulties. She was admitted to the medical floor and started on IVFs, IV rocephin and IV zithromax. Her repeat COVID and influenza A and B were negative. The second day her zithromax was converted to oral. She was started on SVNS with duoneb q4hrs as well as IV solumedrol for COPD exacerbation. Her initial WBC count was 14.4 and this was down to 7 by the second hospital day after IV hydration and IV antibiotics. Her CXR was negative but clinically she remained with crackles in her left base and cough and wheezing. Advair was restarted in place of her usual home symbicort dose. By the time of discharge, she is still with cough but is feeling much better. She required oxygen overnight the first night of admission but has not required any further oxygen. She will be discharged home to start cefdinir and zithromax tomorrow. She will also be on prednisone and SVNS with albuterol q4hrs. She will follow up with me in my office in 1 week. Labs Laboratory Tests 10/31/21 15:04: White Blood Count 14.4H, Neutrophils (%) (Auto) 79H, Lymphocytes (%) (Auto) 9L, Neutrophils # (Auto) 11.3H, Monocytes # (Auto) 1.7H, Sodium Level 130L, Chloride Level 94L, Glucose Level 106H, Total Bilirubin 1.1H 11/01/21 05:53: Sodium Level 132L, Chloride Level 97L, Glucose Level 176H 11/01/21 05:55: Procedures None. Discharge Physical Examination Allergies: Coded Allergies: ampicillin (Verified Allergy, Unknown, 01/25/20) diazepam (Verified Allergy, Unknown, 01/25/20) diphenhydramine (Verified Allergy, Unknown, seizures, 01/25/20) propoxyphene HCl (Verified Allergy, Unknown, 01/25/20) Vitals & I&Os Vital Signs Date Time Temp Pulse Resp B/P (MAP) Pulse Ox O2 Delivery O2 Flow Rate FiO2 11/02/21 13:35 36.5 72 18 117/73 93 Room Air 11/02/21 11:11 2.00 General Appearance: Alert, Oriented X3, No Acute Distress Respiratory: Clear to Auscultation Cardiovascular: Regular Rate Abdominal: Normal Bowel Sounds, Soft, No Tenderness Extremities: No Clubbing, No Cyanosis, No Edema Neuro: Normal Gait, Normal Speech Psych/Mental Status: Mental Status NL, Mood NL Discharge Home Medications Reviewed and agree with Discharge Medication list on patient's Discharge Instruction sheet Instructions to Patient/Family Please see electronic discharge instructions given to patient. BRENDA CHAVES DO November 02, 2021 17:53
== END 2021-11-02 13:35 | disposition home or self-care (01) | DRG 190 ==
LOC: 4TH 14:33
PROVIDERS: ADMIT Family Medicine; ATTEND Family Medicine
DX: J44.0 Chronic obstructive pulmonary disease with (acute) lower respiratory infection (principal); J18.9 Pneumonia, unspecified organism; J44.1 Chronic obstructive pulmonary disease with (acute) exacerbation; R06.03 Acute respiratory distress; E86.0 Dehydration; I95.9 Hypotension, unspecified; R53.1 Weakness; F41.9 Anxiety disorder, unspecified; Z20.822 Contact with and (suspected) exposure to COVID-19; E03.9 Hypothyroidism, unspecified; H40.9 Unspecified glaucoma; K21.9 Gastro-esophageal reflux disease without esophagitis; Z86.718 Personal history of other venous thrombosis and embolism; Z86.711 Personal history of pulmonary embolism; Z79.82 Long term (current) use of aspirin; Z88.1 Allergy status to other antibiotic agents; Z88.8 Allergy status to other drugs, medicaments and biological substances
CPT/HCPCS: 36415; 71046; 80048; 80053; 83605; 85007; 85027; 87040; 87636; 94640; 94664; 94760

== ENCOUNTER → 2021-11-21 | Outpatient (CLI) | payer MEDICARE, OTHER ==
[~2021-11-21] MED LIST changes: +ACET-2267 PO; +ALB0.5V INH; +AZIT250T12 PO; +BACL10TA PO; +BENZ100C18 PO; +CEFD300C3 PO; +CITA10TA9 PO; +FLUT16SP22 NSEACH; +LEVO150T6 PO; +PANT40TA52 PO; +PRD20T PO; +RT-ALBUINH INH; +SCOP1PAT10 TD; +TRAM50TA3 PO; +ZONI100C79 PO
[2021-11-21 11:49] LABS: HEMATOCRIT 40 % (35-52); HEMOGLOBIN 13.7 g/dL (11.5-16.0); MEAN CORPUSCULAR HEMOGLOBIN 30 pg (25-34); MEAN CORPUSCULAR HGB CONC 34 g/dL (32-36); MEAN CORPUSCULAR VOLUME 89 fL (80-99); MEAN PLATELET VOLUME 9.4 fL (9.0-12.2); PLATELET COUNT 249 10^3/uL (130-400); WHITE BLOOD COUNT 6.5 10^3/uL (4.3-11.0)
[2021-11-21 12:09] LABS: ERYTHROCYTE SEDIMENTATION RATE 24 MM/HR (0-30)
[2021-11-21 12:16] LABS: ALBUMIN 4.1 GM/DL (3.2-4.5); POTASSIUM 3.8 MMOL/L (3.6-5.0)
[2021-11-21 12:18] LABS: CALCIUM 9.2 MG/DL (8.5-10.1)
[2021-11-21 12:19] LABS: TOTAL PROTEIN 6.9 GM/DL (6.4-8.2)
[2021-11-21 12:20] LABS: BILIRUBIN,TOTAL 0.7 MG/DL (0.1-1.0)
[2021-11-21 12:22] LABS: CREATININE SERUM 0.81 MG/DL (0.60-1.30)
--- NOTE | 2021-11-21 12:32 | Diagnostic Imaging Report ---
INDICATION: Shortness of breath. TIME OF EXAM: 11:58 AM Correlation is made with prior chest from 10/31/2021. FINDINGS: Heart size stable. Right chest wall Port-A-Cath has tip overlying SVC. The lungs are clear. No infiltrates are detected. No effusion or pneumothorax is identified. There are postoperative changes involving bilateral shoulders as well as the cervical spine. IMPRESSION: No acute cardiopulmonary process is detected. Dictated by: Dictated on workstation # [id number]
== END ==
LOC: RAD 11:13
PROVIDERS: ATTEND Family Medicine
DX: R06.02 Shortness of breath (principal); R05.9 Cough, unspecified; R53.83 Other fatigue; R19.7 Diarrhea, unspecified; Z87.01 Personal history of pneumonia (recurrent)
CPT/HCPCS: 36415; 71046; 80053; 85027; 85652; 87324; 87449

== ENCOUNTER → 2022-01-19 | Outpatient (CLI) | payer MEDICARE, OTHER ==
--- NOTE | 2022-01-19 15:15 | Diagnostic Imaging Report ---
PROCEDURE: CT chest without contrast. TECHNIQUE: Multiple contiguous axial images were obtained through the chest without the use of intravenous contrast. Auto Exposure Controls were utilized during the CT exam to meet ALARA standards for radiation dose reduction. DATE: January 19, 2022. COMPARISON: Chest radiographs November 21, 2021. INDICATION: 71-year-old female, chronic cough. Difficulty breathing. PROCEDURE: Axial noncontrasted CT images of the chest. Noncontrasted limits the evaluation of the mediastinum and vascular structures. FINDINGS: There is no identified noncalcified pulmonary nodule or lung mass. There are linear opacities in the right lower lobe and left lower lobe likely reflecting mild scarring and/or atelectasis. There is also very mild scarring and/or atelectasis in the left upper lobe and right upper lobe. There is no additional focal airspace consolidation. There is a 3 mm calcified right lower lobe granuloma on axial image 86. There is no pneumothorax. There is no pleural effusion. The heart is not enlarged. There is no identified pericardial effusion. There are coronary artery calcifications and additional areas of atherosclerotic disease. There is no pericardial effusion. There is no abnormally enlarged mediastinal or axillary left abdomen meeting CT size criteria for adenopathy. The imaged portions of the upper abdomen are grossly unremarkable. There are postoperative changes of the spine. There are bilateral shoulder prostheses. There are multilevel degenerative changes of the spine. There is no identified acute bony abnormality. IMPRESSION: 1. Mild multifocal scarring or atelectasis in the lungs without findings to specifically suggest interstitial lung disease. 2. No identified acute cardiopulmonary abnormality. Dictated by: Dictated on workstation # [id number]
== END ==
LOC: RAD 14:00
PROVIDERS: ATTEND Family Medicine
DX: J98.11 Atelectasis (principal); J98.4 Other disorders of lung
CPT/HCPCS: 71250

== ENCOUNTER → 2022-02-01 | Outpatient (CLI) | payer MEDICARE, OTHER ==
[2022-02-01 14:42] LABS: HEMATOCRIT 42 % (35-52); HEMOGLOBIN 14.5 g/dL (11.5-16.0); MEAN CORPUSCULAR HEMOGLOBIN 30 pg (25-34); MEAN CORPUSCULAR HGB CONC 34 g/dL (32-36); MEAN CORPUSCULAR VOLUME 89 fL (80-99); MEAN PLATELET VOLUME 9.7 fL (9.0-12.2); PLATELET COUNT 282 10^3/uL (130-400); WHITE BLOOD COUNT 7.9 10^3/uL (4.3-11.0)
--- NOTE | 2022-02-01 14:49 | Diagnostic Imaging Report ---
PROCEDURE: CT head without contrast. TECHNIQUE: Multiple contiguous axial images were obtained through the brain without the use of intravenous contrast. Auto Exposure Controls were utilized during the CT exam to meet ALARA standards for radiation dose reduction. INDICATION: Severe headache. Left visual disturbance. COMPARISON: CT head without contrast 08/14/2021. FINDINGS: No CT evidence of a territorial infarction. No intracranial hemorrhage, mass effect, hydrocephalus, or extra-axial fluid collections. Osseous structures are intact. Visualized paranasal sinuses and mastoids are clear. IMPRESSION: No acute intracranial CT findings. Dictated by: Dictated on workstation # [id number]
[2022-02-01 15:03] LABS: ERYTHROCYTE SEDIMENTATION RATE 8 MM/HR (0-30)
[2022-02-01 15:06] LABS: ALBUMIN 4.3 GM/DL (3.2-4.5); BILIRUBIN,TOTAL 0.4 MG/DL (0.1-1.0); CALCIUM 9.4 MG/DL (8.5-10.1); CREATININE SERUM 1.1 MG/DL (0.60-1.30); POTASSIUM 3.8 MMOL/L (3.6-5.0); TOTAL PROTEIN 6.8 GM/DL (6.4-8.2)
== END ==
LOC: RAD 14:30
PROVIDERS: ATTEND Family Medicine
DX: R51.9 Headache, unspecified (principal); H53.9 Unspecified visual disturbance
CPT/HCPCS: 36415; 70450; 80053; 85027; 85652

== ENCOUNTER → 2022-03-01 | Outpatient (CLI) | payer MEDICARE, OTHER ==
[~2022-03-01] MED LIST changes: +BARIUM for suspension 96% w/w (Vanilla Silq Medium Density) PO ONE; +BARIUM for suspension 98% w/w (Vanilla Silq High Density) PO ONE; +CATHETER FLUSH 10 ML SYR IV PRN; +HOLD METFORMIN - RECEIVED CONTRAST 20 ML VIAL IV SCH; +IOHEXOL 350 MG/ML 100 ML (OMNIPAQUE 350) VIAL IV ONE; +NS 100 ML (IVPB) BAG IV ONE
--- NOTE | 2022-03-01 09:59 | Diagnostic Imaging Report ---
PROCEDURE: CT neck soft tissue with contrast. TECHNIQUE: Multiple contiguous axial images were obtained through the neck after the administration of contrast. Auto Exposure Controls were utilized during the CT exam to meet ALARA standards for radiation dose reduction. INDICATION: Dysphagia. History of cervical spine fusion. COMPARISON: CT cervical spine without contrast 08/14/2021. FINDINGS: Partially visualized right IJ CVC. No suspicious mass or enhancement in the pharynx or larynx. The visualized upper esophagus is negative. Normal floor of the mouth, tongue base, epiglottis and retropharyngeal space. No cervical lymphadenopathy. No mass or fluid collection is seen in the neck. The thyroid and major salivary glands are negative. The major vessels in the neck are grossly patent. The lung apices are clear. Visualized paranasal sinuses and mastoids are clear. Normal alignment of the temporomandibular joints. Visualized intracranial contents are unremarkable. There are postoperative findings of an anterior fusion and interbody grafting at C3-C4 and C6-C7. Hardware components are grossly intact on this nondedicated exam. Normal alignment of the cervical spine without acute findings identified. The inferior construct abuts the upper esophagus, likely mildly displacing it anteriorly. IMPRESSION: 1. No acute CT findings in the neck. No mass or fluid collections identified. No suspicious enhancement. No lymphadenopathy. 2. Postoperative findings of anterior fusion and interbody grafting at C3-C4 and C6-C7. 3. The inferior hardware construct likely displaces the upper esophagus anteriorly to mild degree. This is of questionable clinical consequence. Recommend correlation with the esophagram also scheduled for today but not yet complete. Dictated by: Dictated on workstation # [id number]
--- NOTE | 2022-03-01 14:36 | Diagnostic Imaging Report ---
Barium swallow esophagram INDICATION: Difficulty swallowing There are no prior studies available for comparison. A double contrast study was performed. The patient swallowed the contrast material without difficulty. Esophagus shows fairly good distensibility and motility. There was no delay or obstruction of passage of contrast through the esophagus. The cricopharyngeus muscle is prominent but there is no sign of obstruction of the esophagus in this area. There is no evidence for a hiatal hernia or for gastroesophageal reflux. The stomach shows good distensibility and motility. There is no mass or ulceration evident. The duodenal bulb and proximal small bowel are unremarkable. IMPRESSION: 1. There is no evidence for obstruction of the esophagus. There is no sign of a hiatal hernia or gastroesophageal reflux either. 2. The stomach, duodenum and proximal small bowel are generally unremarkable. Dictated by: Dictated on workstation # [id number]
== END ==
LOC: RAD 07:57
PROVIDERS: ATTEND Otolaryngology Otolaryngology/Facial Plastic Surgery
DX: R13.10 Dysphagia, unspecified (principal)
CPT/HCPCS: 70491; 74220

== ENCOUNTER → 2022-08-06 | Outpatient (CLI) | payer MEDICARE, OTHER ==
[~2022-08-06] MED LIST changes: -BARIUM for suspension 96% w/w (Vanilla Silq Medium Density) PO ONE; -BARIUM for suspension 98% w/w (Vanilla Silq High Density) PO ONE; -CATHETER FLUSH 10 ML SYR IV PRN; -HOLD METFORMIN - RECEIVED CONTRAST 20 ML VIAL IV SCH; -IOHEXOL 350 MG/ML 100 ML (OMNIPAQUE 350) VIAL IV ONE; -NS 100 ML (IVPB) BAG IV ONE
[2022-08-06 12:07] LABS: FREE T4 (FREE THYROXINE) 1.4 NG/DL (0.70-1.48)
== END ==
LOC: LAB 11:03
PROVIDERS: ATTEND Family Medicine
DX: E03.9 Hypothyroidism, unspecified (principal)
CPT/HCPCS: 36415; 84439; 84443

== ENCOUNTER → 2022-09-04 | Outpatient (CLI) | payer MEDICARE, OTHER | LOC: RAD 09:18 | DX: M99.01 Segmental and somatic dysfunction of cervical region (principal); R51.9 Headache, unspecified; M79.12 Myalgia of auxiliary muscles, head and neck; M99.03 Segmental and somatic dysfunction of lumbar region; M79.18 Myalgia, other site ==

== ENCOUNTER → 2022-09-04 | Outpatient (CLI) | payer MEDICARE, OTHER ==
--- NOTE | 2022-09-04 11:06 | Diagnostic Imaging Report ---
INDICATION: Post fall one year ago with continued pain. TECHNIQUE: AP, lateral, bilateral oblique and odontoid views cervical spine. Additionally, lateral flexion and extension views also obtained. CORRELATION STUDY: 10/16/2017 FINDINGS: Since prior surgery, there has been two segment ACDF performed. This includes plate, intervertebral spacer and screws at the C3-C4 and C6-C7 levels. Cervical spinal alignment is anatomic. There is overall limited range of motion with flexion and extension. However, no abnormal subluxation demonstrated. Nonfused segments appear unremarkable. Fairly good preservation disc space. Marginal osteophyte formation noted anteriorly. Hypertrophic facet arthropathy. There does appear to be various degrees of at least mild osseous encroachment and narrowing of the foramina. Partial visualization of a right IJ [id number]-w-[id number] catheter. Visualized lung apices unremarkable. Prevertebral soft tissues unremarkable. Prior surgical changes of apparent right shoulder arthroplasty as well. IMPRESSION: 1. Interval 2 segment ACDF, C3-C4 and C6-C7 levels. Cervical spine alignment anatomic demonstrates no abnormal subluxation. Dictated by: Dictated on workstation # [id number]
--- NOTE | 2022-09-04 12:43 | Diagnostic Imaging Report ---
INDICATION: BACK PAIN TECHNIQUE: AP, Lateral, bilateral oblique, lateral flexion and extension and Spot imaging of the lumbar spine CORRELATION STUDY: 02/14/2019. FINDINGS: Posterior fusion with transpedicular screws and interconnecting rods at L2-L4 remain in place. Hardware remains intact. Alignment is unchanged. Spacer device at L2-L3 and L3-L4 levels are stable as well. Nonfused segments do demonstrate mild retrolisthesis of L1 on L2, approximately 1 cm. With flexion and extension, no abnormal subluxation or movement is suggested. Marked disc space narrowing at L5-S1 level as well as at L1-L2 level again demonstrated. SI joints are unremarkable. Bilateral hip arthroplasty hardware present. IMPRESSION: 1. Posterior fusion at L2-L4 with hardware appearing to be intact and the alignment unchanged and anatomic. 2. Mild slightly progressive retrolisthesis of L1 on L2. No appreciable abnormal subluxation with flexion and/or extension. Dictated by: Dictated on workstation # [id number]
== END ==
LOC: RAD 09:22
PROVIDERS: ATTEND Nurse Practitioner Family
DX: M43.16 Spondylolisthesis, lumbar region (principal); M99.01 Segmental and somatic dysfunction of cervical region; M79.12 Myalgia of auxiliary muscles, head and neck; M79.18 Myalgia, other site; R51.9 Headache, unspecified; Z98.1 Arthrodesis status
CPT/HCPCS: 72052; 72114

== ENCOUNTER 2022-09-10 15:36 | Inpatient (IN) | payer MEDICARE, OTHER ==
[~2022-09-10] VITALS: Ht 170 cm; Wt 101.7 kg
--- OUTSIDE RECORDS SUMMARY | 2022-09-10 16:58 | XMS REPORT | CCD ---
Author Author Marcella Vanessa D.O. Organization [facility] Address [address] [place] [address] Phone Care Team Providers Care English Professor Name Role Phone Jayna Vanessa D.O., PP Unavailable CCM Unavailable Summary Purpose Interface Exchange Insurance Providers Payer name Policy type / Coverage type Covered democrat ID Effective Begin Date Effective End Date [employer] Commercial Insurance [id number] Unknown Commercial Insurance [id number] Unknown Family history Side Diagnosis Age At Onset Heart disease Unknown Diabetes Unknown Sister Diagnosis Age At Onset Diabetes Unknown Brother Diagnosis Age At Onset Diabetes Unknown Mother Diagnosis Age At Onset Heart disease Unknown Father Diagnosis Age At Onset Heart disease Unknown Social History Social History Element Codes Description Effective Dates Tobacco history SNOMED CT: 788563053 Never smoker 04/04/2011 Marital status Unknown 09/21/2009 Number of children Unknown 5 09/21/2009 Allergies, Adverse Reactions, Alerts Substance Reaction Codes Entered Date Inactivated Date Status Pollen _ Unknown 09/21/2009 No Inactive Date Active * NO KNOWN FOOD ALLERGIES Unknown 09/21/2009 No Inactiv e Date Active Dust _ Unknown 09/21/2009 No Inactive Date Active Grasses _ Unknown 09/21/2009 No Inactive Date Active _ Unknown 04/15/2019 No Inactive Date Active Problems Condition Codes Effective Dates Condition Status Acute cystitis ICD-10: N30.00 ICD-9: 595.0 06/29/2022 Active Dehydration ICD-10: E86.0 ICD-9: 276.51 09/10/2022 Active Cervicalgia ICD-10: M54.2 ICD-9: 723.1 10/16/2017 Active Degeneration of lumbar or lumbosacral intervertebral d isc ICD-10: M51.37 ICD-9: 722.52 08/30/2022 Active Essential (primary) hypertension ICD-10: I10 ICD-9: 401.9 11/24/2013 Active Hypothyroidism ICD-10: E03.9 ICD-9: 244.9 11/24/2013 Active Mixed hyperlipidemia ICD-10: E78.2 ICD-9: 272.4 11/24/2013 Active Stress at home ICD-10: F43.9 ICD-9: V61.9 08/07/2022 Active Depression ICD-10: F32.A ICD-9: 311 05/10/2022 Active Fatigue ICD-10: R53.83 ICD-9: 780.79 05/10/2022 Active Hyperglycemia ICD-10: R73.9 ICD-9: 790.29 05/10/2022 Active Migraine, intractable ICD-10: G43.919 ICD-9: 346.91 04/18/2022 Active FLU VACCINE ICD-10: Z23 ICD-9: V04.81 04/30/2016 Active Acute sinusitis ICD-10: J01.90 ICD-9: 461.9 02/15/2022 Active Allergic rhinitis ICD-10: J30.9 ICD-9: 477.9 02/15/2022 Active Bilateral temporomandibular joint disorder ICD-10: M26 .603 ICD-9: 524.60 02/15/2022 Active Chronic obstructive pulmonary disease, unspecified ICD -10: J44.9 ICD-9: 496 01/03/2021 Active Encounter for general adult medical examination withou t abnormal findings ICD- 10: Z00.00 ICD-9: V70.0 02/06/2022 Active 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 ICD-10: G43.111 ICD-9: 346.03 02/01/2022 Active Vision changes ICD-10: H53.9 ICD-9: 368.9 02/01/2022 Active Cough ICD-10: R05.9 ICD-9: 786.2 11/29/2021 Active Diarrhea ICD-10: R19.7 ICD-9: 787.91 11/22/2021 Active Otalgia of both ears ICD-10: H92.03 ICD-9: 388.70 11/22/2021 Active Post-viral cough syndrome ICD-10: R05.8 ICD-9: 786.2 11/22/2021 Active Altered taste ICD-10: R43.2 ICD-9: 781.1 11/21/2021 Active Chronic bronchitis ICD-10: J42 ICD-9: 491.9 09/19/2020 Active Diarrhea of presumed infectious origin ICD-10: R19.7 ICD-9: 009.3 11/21/2021 Active History of recent pneumonia ICD-10: Z87.01 ICD-9: V12.61 11/21/2021 Active Pneumonia ICD-10: J18.9 ICD-9: 486 03/07/2020 Active Postnasal drip ICD-10: R09.82 ICD-9: 784.91 11/09/2021 Active Serous otitis media ICD-10: H65.90 ICD-9: 381.4 09/19/2020 Active Respiratory distress ICD-10: R06.03 ICD-9: 786.09 10/31/2021 Active Nausea ICD-10: R11.0 ICD-9: 787.02 10/30/2021 Active Vertigo ICD-10: R42 ICD-9: 780.4 09/12/2017 Active Arthritis of finger of right hand ICD-10: M19.041 ICD-9: 716.94 08/24/2021 Active Seronegative rheumatoid arthritis ICD-10: M06.00 ICD-9: 714.0 08/24/2021 Active Contact with and (suspected) exposure to other viral c ommunicable diseases ICD- 10: Z20.828 ICD-9: V01.79 07/04/2021 Active Upper respiratory infection ICD-10: J06.9 ICD-9: 465.9 01/06/2019 Active Orthostatic hypotension ICD-10: I95.1 ICD-9: 458.0 03/01/2021 Active Vasovagal episode ICD-10: R55 ICD-9: 780.2 03/01/2021 Active Sebaceous cyst of right axilla ICD-10: L72.3 ICD-9: 706.2 11/28/2016 Active Contact dermatitis ICD-10: L25.9 ICD-9: 692.9 01/19/2021 Active Encounter for general adult medical examination withou t abnormal findings ICD- 10: Z00.00 ICD-9: V70.9 04/04/2017 Active COPD exacerbation ICD-10: J44.1 ICD-9: 491.21 11/29/2020 Active Acute pansinusitis, recurrence not specified ICD-10: J 01.40 ICD-9: 461.8 09/29/2020 Active Sinusitis ICD-10: J32.9 ICD-9: 473.9 07/09/2019 Active Fluid level behind tympanic membrane of both ears ICD- 10: H65.93 ICD-9: 381.4 09/19/2020 Active Mixed simple and mucopurulent chronic bronchitis ICD-1 0: J41.8 ICD-9: 491.1 09/19/2020 Active Other seasonal allergic rhinitis ICD-10: J30.2 ICD-9: 477.9 10/07/2018 Active Right-sided tinnitus ICD-10: H93.11 ICD-9: 388.30 08/01/2020 Active Dysfunction of right eustachian tube ICD-10: H69.81 ICD-9: 381.81 08/01/2020 Active Anemia ICD-10: D64.9 ICD-9: 285.9 07/13/2020 Active Blood in stool ICD-10: K92.1 ICD-9: 578.1 07/13/2020 Active Pyelonephritis ICD-10: N12 ICD-9: 590.80 07/13/2020 Active Acute gastroenteritis ICD-10: K52.9 ICD-9: 558.9 07/05/2020 Active Vroyo-8-pnjzrwhhvhx deficiency ICD-10: E88.01 ICD-9: 273.4 11/28/2016 Active Urinary tract infection ICD-10: N39.0 ICD-9: 599.0 01/06/2019 Active Right pulmonary embolus ICD-10: I26.99 ICD-9: 415.19 03/14/2020 Active COVID-19 ICD-10: U07.1 ICD-9: 079.89 03/07/2020 Active Dyspnea ICD-10: R06.00 ICD-9: 786.09 03/07/2020 Active Dermatitis ICD-10: L30.9 ICD-9: 692.9 09/29/2019 Active Urticaria ICD-10: L50.9 ICD-9: 708.9 09/29/2019 Active Bone spur of right foot ICD-10: M77.51 ICD-9: 726.91 09/14/2019 Active MRSA (methicillin resistant staph aureus) culture posi tive ICD-10: Z22.322 ICD-9: V02.54 09/14/2019 Active Pelvic pain in female ICD-10: R10.2 ICD-9: 625.9 09/02/2019 Active Urinary frequency ICD-10: R35.0 ICD-9: 788.41 09/02/2019 Active Pain in right leg ICD-10: M79.604 ICD-9: 729.5 04/07/2019 Active Cystitis ICD-10: N30.90 ICD-9: 595.9 03/18/2019 Active Diverticulitis of large intestine withou t perforation or abscess without bleeding ICD-10: K57.32 ICD-9: 562.11 01/26/2019 Active Abdominal pain ICD-10: R10.9 ICD-9: 789.00 03/18/2019 Active Generalized abdominal pain ICD-10: R10.84 ICD-9: 789.07 12/11/2018 Active Allergic rhinitis due to pollen ICD-10: J30.1 ICD-9: 477.9 01/08/2019 Active Mild intermittent asthma with (acute) exacerbation ICD -10: J45.21 ICD-9: 466.0 01/06/2019 Active Acute vaginitis ICD-10: N76.0 ICD-9: 616.10 12/11/2018 Active Encounter for general adult medical examination with a bnormal findings ICD-10: Z00.01 ICD-9: V70.0 12/11/2018 Active Encounter for screening for malignant neoplasm of colo n ICD-10: Z12.11 ICD-9: V76.51 12/11/2018 Active Encounter for screening for other disorder ICD-10: Z13 .89 ICD-9: V79.0 12/11/2018 Active Type 2 diabetes mellitus with hyperglycemia ICD-10: E1 1.65 ICD-9: 250.02 05/20/2012 Active Benign paroxysmal vertigo, bilateral ICD-10: H81.13 ICD-9: 386.11 10/30/2018 Active Migraine without aura, not intractable, without status migrainosus ICD-10: G43.009 ICD-9: 346.80 10/30/2018 Active Acute bronchitis, unspecified ICD-10: J20.9 ICD-9: 466.0 10/07/2018 Active Cough ICD-10: R05 ICD-9: 786.2 11/24/2014 Active Other abnormal and inconclusive findings on diagnostic imaging of breast ICD-10: R92.8 ICD-9: 793.80 06/30/2018 Active Other specified disorders of bone density and structur e, unspecified site ICD- 10: M85.80 ICD-9: 733.90 06/23/2018 Active Pain in right ankle and joints of right foot ICD-10: M 25.571 ICD-9: 719.47 06/23/2018 Active Pain in unspecified joint ICD-10: M25.50 ICD-9: 719.40 06/23/2018 Active Headache ICD-10: R51 ICD-9: 784.0 09/12/2017 Active Acute bronchospasm ICD-10: J98.01 ICD-9: 519.11 07/29/2017 Active Influenza due to identified novel influe nza A virus with other respiratory manifestations ICD-10: J09.X2 ICD-9: 488.02 07/25/2017 Active Pain in unspecified joint ICD-10: M25.50 ICD-9: 719.49 06/10/2017 Active Acute bronchitis, unspecified ICD-10: J20.9 ICD-9: 490 05/28/2017 Active PNEUMOCOCCAL VACCINE ICD-10: Z23 ICD-9: V03.82 02/07/2015 Active Type 2 diabetes mellitus without complications ICD-10: E11.9 ICD-9: 250.00 04/04/2017 Active Type 1 diabetes mellitus without complications ICD-10: E10.9 ICD-9: 250.00 11/24/2013 Active Vitamin D deficiency, unspecified ICD-10: E55.9 ICD-9: 268.9 07/21/2014 Active Epigastric pain ICD-10: R10.13 ICD-9: 789.06 06/04/2016 Active Right upper quadrant pain ICD-10: R10.11 ICD-9: 789.01 06/04/2016 Active Mixed incontinence ICD-10: N39.46 ICD-9: 788.33 11/07/2015 Active Metabolic syndrome ICD-10: E88.81 ICD-9: 277.7 07/28/2014 Active Right lower quadrant abdominal tenderness ICD-10: R10. 813 ICD-9: 789.63 03/27/2015 Active ARTHRALGIA-MULTIPLE SITES ICD-9: 719.49 01/10/2015 Active DEPRESSIVE DISORDER NEC ICD-9: 311 05/26/2013 Active MALAISE AND FATIGUE ICD-9: 780.79 01/11/2015 Active Lumbar degenerative disc disease ICD-9: 722.52 11/24/2014 Active Allergic reaction ICD-9: 995.3 11/19/2014 Active ALLERGIC RHINITIS ICD-9: 477.9 10/27/2014 Active WHEEZING ICD-9: 786.07 10/27/2014 Active Flank pain ICD-9: 789.09 09/23/2014 Active URINARY TRACT INFECTION ICD-9: 599.0 09/23/2014 Active DYSMETABOLIC SYNDROME X ICD-9: 277.7 07/28/2014 Active Hypovitaminosis D ICD-9: 268.9 07/21/2014 Active Acute renal insufficiency ICD-9: 593.9 04/27/2014 Active GROSS HEMATURIA ICD-9: 599.71 03/30/2014 Active Hypertension Unknown 11/24/2013 Active - I - HYPOTHYROIDISM ICD-9: 244.9 11/24/2013 Active DM 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 TYPE II ICD-9: 250.00 11/24/2013 Acti ve HYPERLIPIDEMIA NEC/NOS ICD-9: 272.4 11/24/2013 Active HYPERTENSION ICD-9: 401.9 11/24/2013 Active Shoulder pain ICD-9: 719.41 05/06/2013 Active EDEMA ICD-9: 782.3 03/31/2013 Active ANXIETY STATE NOS ICD-9: 300.00 03/05/2013 Active Pprzr-2-vjxxhyzmorf 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 02/04/2013 A ctive DYSPNEA ICD-9: 786.09 11/11/2012 Active PHARYNGITIS, ACUTE ICD-9: 462 09/03/2012 Active Diarrhea ICD-9: 787.91 07/23/2012 Active DM 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 TYPE II, UNCONTROLLED ICD-9: 250.02 2011 Active GERD ICD-9: 530.81 05/20/2012 Active DERMATITIS NOS ICD-9: 692.9 04/04/2012 Active Inflamed seborrheic keratosis ICD-9: 702.11 02/20/2012 Ac tive Diverticulitis ICD-9: 562.11 08/14/2011 Active THROMBOPHLEBITIS ICD-9: 451.9 08/14/2011 Active ABDOMINAL PAIN ICD-9: 789.00 07/31/2011 Active Total knee replacement status ICD-9: V43.65 07/12/2011 Ac tive ASTHMA NOS ICD-9: 493.90 05/02/2011 Active BRONCHITIS, ACUTE ICD-9: 466.0 05/02/2011 Active Pleurisy ICD-9: 511.0 05/02/2011 Active COUGH ICD-9: 786.2 04/04/2011 Active SINUSITIS, ACUTE ICD-9: 461.9 04/04/2011 Active CELLULITIS OF ARM ICD-9: 682.3 12/07/2010 Active DYSPHAGIA NEC ICD-9: 787.29 10/09/2010 Active Polydipsia ICD-9: 783.5 10/09/2010 Active Hypersomnolent ICD-9: 780.54 08/07/2010 Active Excessive sweating ICD-9: 780.8 06/06/2010 Active PAIN, LOWER BACK ICD-9: 724.2 01/30/2010 Active SPASM OF MUSCLE ICD-9: 728.85 01/30/2010 Active Rib pain ICD-9: 786.50 01/09/2010 Active Osteoarthritis of knee ICD-9: 715.96 10/26/2009 Active ABSCESS OF VULVA NEC ICD-9: 616.4 10/04/2009 Active NAUSEA WITH VOMITING ICD-9: 787.01 10/04/2009 Active Arthritis Unknown 09/21/2009 Active Gastroesophageal reflux disease Unknown 09/21/2009 Active Hyperlipidemia Unknown 09/21/2009 Active Hypothryroidism Unknown 09/21/2009 Active Migraine Unknown 09/21/2009 Active FOLLOW-UP EXAM ICD-9: V67.9 09/21/2009 Active Medications Medication Codes Instructions Start Date Stop Date Status Fill Instructions Macrobid 100 mg capsule RxNorm: 350841 Take 1 Capsule(s) Oral t wo times a day 09/05/2022 09/11/2022 Active bupropion HCl XL 300 mg 24 hr tablet, extended release RxNor m: 193959 TAKE 1 Tablet BY MOUTH DAILY IN THE MORNING (replaces 150mg DOSE) 08/29/2022 02/24/2023 Active levothyroxine 150 mcg tablet RxNorm: 026681 TAKE ONE TA BLET BY MOUTH EVERY IN THE MORNING 08/29/2022 02/24/2023 Active ciprofloxacin 250 mg tablet RxNorm: 914795 Take 1 Tablet(s) Ora l Q12H 06/29/2022 07/03/2022 Inactive levothyroxine 150 mcg tablet RxNorm: 468052 Take 1 Tablet(s) Or al QAM 06/03/2022 06/03/2022 Inactive Wellbutrin XL 300 mg 24 hr tablet, extended release RxNorm: 499120 Take 1 Tablet(s) Oral QAM replaces 150mg dose 05/28/2022 05/28/2022 Inactive Xyzal 5 mg tablet RxNorm: 452265 Take 1 Tablet(s) Oral QPM 05/10/2010/06/2022 Active Claritin 10 mg tablet RxNorm: 616854 Take 1 Tablet(s) Oral QAM 04/2409/06/2022 Inactive Flonase Allergy Relief 50 mcg/actuation nasal spray,suspensi on RxNorm: 2296248 Take 1 [place] Nasal two times a day 05/10/2022 06/08/2022 Inactive Wellbutrin XL 150 mg 24 hr tablet, extended release RxNorm: 686965 Take 1 Tablet(s) Oral QAM 05/10/2022 05/27/2022 Inactive sumatriptan 100 mg tablet RxNorm: 008738 1 Tablet(s) Or al after onset of migraine; may repeat after 2 hours if headache returns, not to exceed 200mg in 24hrs replaces rizatriptan 04/19/2022 04/19/2022 Inactive sumatriptan 100 mg tablet RxNorm: 861441 1 Tablet(s) Or al after onset of migraine; may repeat after 2 hours if headache returns, not to exceed 200mg in 24hrs replaces rizatriptan 04/19/2022 04/19/2022 Inactive propranolol 20 mg tablet RxNorm: 831772 TAKE 1 TABLET BY MOUTH TWICE DAILY 04/18/2022 10/14/2022 Active rizatriptan 10 mg disintegrating tablet RxNorm: 794121 Take 1 Tablet(s) Oral on top of tongue, allow to dissolve then swallow once, may repeat every 2 hrs; max 30 mg/24hrs 04/18/2022 04/18/2022 Inactive prednisone 20 mg tablet RxNorm: 121843 Take 1 Tablet(s) Oral tw o times a day 02/15/2022 02/21/2022 Inactive Nurtec ODT 75 mg disintegrating tablet RxNorm: 6752957 T bria 1 Tablet(s) Oral per 24 hours as needed for migraine 02/09/2022 02/09/2022 Inactive Nurtec ODT 75 mg disintegrating tablet RxNorm: 8973643 T bria 1 Tablet(s) Oral per 24 hours as needed for migraine 02/09/2022 02/09/2022 Inactive fluticasone propionate 50 mcg/actuation nasal spray,suspensi on RxNorm: 6547841 SPRAY ONE SPRAY IN EACH NOSTRIL TWICE DAILY NEEDED 02/05/20222021 Inactive levothyroxine 150 mcg tablet RxNorm: 530438 Take 1 Tablet(s) Or al QAM 02/04/2022 02/04/2022 Inactive albuterol sulfate HFA 90 mcg/actuation aerosol inhaler RxNor m: 8081284 Inhale 2 Puff(s) Oral Q4H as needed 01/05/2022 04/04/2022 Inactive pantoprazole 40 mg tablet,delayed release RxNorm: 850103 Take 1 Tablet(s) Oral QD 01/04/2022 07/02/2022 Inactive propranolol 20 mg tablet RxNorm: 978380 TAKE 1 TABLET BY MOUTH TWICE DAILY 01/04/2022 04/17/2022 Inactive levothyroxine 150 mcg tablet RxNorm: 480044 Take 1 Tablet(s) Or al QAM 12/05/2021 12/05/2021 Inactive metronidazole 500 mg tablet RxNorm: 694723 Take 1 Table t(s) Oral two times a day 11/29/2021 12/05/2021 Inactive Singulair 10 mg tablet RxNorm: 529780 Take 1 Tablet(s) Oral QPM 06/202105/09/2022 Inactive Diflucan 100 mg tablet RxNorm: 725061 Take 1 Tablet(s) Oral QD 06/0 06/202111/28/2021 Inactive pantoprazole 40 mg tablet,delayed release RxNorm: 307851 Take 1 Tablet(s) Oral QD 11/06/2021 11/06/2021 Inactive fluticasone propionate 50 mcg/actuation nasal spray,suspensi on RxNorm: 9483304 SPRAY ONE SPRAY IN EACH NOSTRIL TWICE DAILY NEEDED 11/03/20212021 Inactive scopolamine 1 mg over 3 days transdermal patch RxNorm: 95241 2 Apply 1 Unit Dose Transdermal Q72H behind ear 10/30/2021 02/05/2022 Inactive albuterol sulfate HFA 90 mcg/actuation aerosol inhaler RxNor m: 2174891 Inhale 2 Puff(s) Oral Q4H as needed 10/05/2021 11/24/2021 Inactive pantoprazole 40 mg tablet,delayed release RxNorm: 376789 Take 1 Tablet(s) Oral QD 10/05/2021 10/05/2021 Inactive meloxicam 7.5 mg tablet RxNorm: 488781 Take 1 Tablet(s) Oral QD for pain 09/05/2021 09/11/2021 Inactive baclofen 10 mg tablet RxNorm: 813316 Take 0.5-1 Tablet( s) Oral three times per week as needed for muscle spasm 09/05/2021 02/05/2022 Inactive prednisone 20 mg tablet RxNorm: 926937 Take 1 Tablet(s) Oral QD 08/202108/28/2021 Inactive pantoprazole 40 mg tablet,delayed release RxNorm: 072083 Take 1 Tablet(s) Oral QD 07/07/2021 09/04/2021 Inactive fluticasone propionate 50 mcg/actuation nasal spray,suspensi on RxNorm: 9657609 Take 1 [place] Nasal two times a day in each nostrilas needed 07/04/2021 10/01/2021 Inactive Decadron 6 mg tablet RxNorm: 719167 Take 1 Tablet(s) Oral QD 202107/08/2021 Inactive albuterol sulfate HFA 90 mcg/actuation aerosol inhaler RxNor m: 0236092 Inhale 2 Puff(s) Oral Q4H as needed 06/08/2021 09/05/2021 Inactive propranolol 20 mg tablet RxNorm: 887854 TAKE 1 TABLET BY MOUTH TWICE DAILY 06/08/2021 06/08/2021 Inactive pantoprazole 40 mg tablet,delayed release RxNorm: 963039 Take 1 Tablet(s) Oral QD 04/09/2021 06/07/2021 Inactive ProAir HFA 90 mcg/actuation aerosol inhaler RxNorm: 533301 2 Puff(s) Inhalation Q4H as needed 03/13/2021 03/13/2021 Inactive citalopram 10 mg tablet RxNorm: 966616 1 Tablet(s) Oral two antonio es a day 03/13/2021 02/05/2022 Inactive levothyroxine 150 mcg tablet RxNorm: 880475 TAKE 1 Tabl et BY MOUTH EVERY MORNING (REPLACES 137 MCG DOSE) 03/09/2021 03/09/2021 Inactive pantoprazole 40 mg tablet,delayed release RxNorm: 775394 Take 1 Tablet(s) Oral QD 02/08/2021 04/08/2021 Inactive triamcinolone acetonide 0.1 % topical cream RxNorm: 2026116 Take Application Topical two times a day to arm rash 01/19/2021 01/19/2021 Inactive prednisone 20 mg tablet RxNorm: 330545 Take 1 Tablet(s) Oral QD 01/23/2021 Inactive levothyroxine 150 mcg tablet RxNorm: 551475 Take 1 Tabl et(s) Oral QAM replaces 137mcg dose 01/03/2021 01/03/2021 Inactive prednisone 20 mg tablet RxNorm: 255358 Take 2 Tablet(s) Oral QD 01/202112/03/2020 Inactive promethazine-DM 6.25 mg-15 mg/5 mL oral syrup RxNorm: 064487 Take 5 Milliliter(s) Oral Every 6 hours as needed, not to exceed 30 mL in 24 hours 11/29/2020 12/03/2020 Inactive doxycycline hyclate 100 mg capsule RxNorm: 8642725 1 Cap kimi(s) Oral two times a day 09/29/2020 10/05/2020 Inactive Lalita-D 12 Hour 60 mg-120 mg tablet,extended release RxNor m: 293750 1 Tablet(s) Oral QD 09/19/2020 10/03/2020 Inactive ProAir HFA 90 mcg/actuation aerosol inhaler RxNorm: 014266 2 Inhalation Q4H as needed 09/19/2020 09/19/2020 Inactive propranolol 20 mg tablet RxNorm: 224838 TAKE 1 TABLET BY MOUTH TWICE DAILY 09/15/2020 09/15/2020 Inactive pantoprazole 40 mg tablet,delayed release RxNorm: 369201 1 Tabl et(s) Oral QD 09/09/2020 09/08/2020 Inactive pantoprazole 40 mg tablet,delayed release RxNorm: 604500 1 Tabl et(s) Oral QD 09/09/2020 11/07/2020 Inactive propranolol 20 mg tablet RxNorm: 937624 TAKE 1 TABLET BY MOUTH TWICE DAILY 08/24/2020 09/09/2020 Inactive levothyroxine 137 mcg tablet RxNorm: 088122 1 Tablet(s) Oral QD 08/202001/02/2021 Inactive npbkkrcp-azymsgvcz-kfhkunqj 3.5 mg/mL-10,000 unit/mL-0 .1% eye drops RxNorm: 059094 4 Drop(s) Otic three times a day 08/10/2020 02/05/2022 Inactive prednisone 20 mg tablet RxNorm: 485088 1 Tablet(s) Oral two antonio es a day 08/01/2020 08/08/2020 Inactive pantoprazole 40 mg tablet,delayed release RxNorm: 014197 1 Tabl et(s) Oral QD 07/13/2020 09/08/2020 Inactive ondansetron HCl 4 mg tablet RxNorm: 274011 1 Tablet(s) Oral Q4H as needed for nausea 07/13/2020 05/09/2022 Inactive levothyroxine 137 mcg tablet RxNorm: 390641 1 Tablet(s) Oral QD 08/23/2020 Inactive pantoprazole 40 mg tablet,delayed release RxNorm: 526169 1 Tabl et(s) Oral QD 07/13/2020 07/12/2020 Inactive ondansetron HCl 4 mg tablet RxNorm: 807248 1 Tablet(s) Oral Q4H as needed for nausea 07/05/2020 07/12/2020 Inactive Flagyl 500 mg tablet RxNorm: 964066 1 Tablet(s) Oral three time s a day 07/05/2020 07/12/2020 Inactive Fish Oil 1,000 mg (120 mg-180 mg) capsule RxNorm: 1 Caps ule(s) Oral QD 06/23/2020 09/18/2020 Inactive rosuvastatin 10 mg tablet RxNorm: 449039 1 Tablet(s) Oral MWF 06/2306/22/2020 Inactive rosuvastatin 10 mg tablet RxNorm: 359899 1 Tablet(s) Oral MWF 06/2302/05/2022 Inactive fluconazole 100 mg tablet RxNorm: 961080 1 Tablet(s) Oral QOD 05/1706/21/2020 Inactive Macrobid 100 mg capsule RxNorm: 592375 1 Capsule(s) Oral two ti mes a day 05/17/2020 05/24/2020 Inactive levothyroxine 137 mcg tablet RxNorm: 140028 TAKE 1 TABLET BY [facility] ONCE DAILY 05/16/2020 07/12/2020 Inactive Eliquis 5 mg tablet RxNorm: 1594422 1 Tablet(s) Oral two times a da y 04/25/2020 02/05/2022 Inactive propranolol 20 mg tablet RxNorm: 074411 TAKE 1 TABLET BY MOUTH TWICE DAILY 04/25/2020 08/23/2020 Inactive doxycycline hyclate 100 mg capsule RxNorm: 4664886 1 Cap kimi(s) Oral two times a day 03/24/2020 03/31/2020 Inactive doxycycline hyclate 100 mg capsule RxNorm: 4675687 1 Cap kimi(s) Oral two times a day 03/24/2020 03/23/2020 Inactive propranolol 20 mg tablet RxNorm: 416490 TAKE 1 TABLET BY MOUTH TWICE DAILY 03/15/2020 04/13/2020 Inactive Eliquis 5 mg tablet RxNorm: 3046715 1 Tablet(s) Oral two times a da y 03/14/2020 04/24/2020 Inactive Eliquis 5 mg tablet RxNorm: 2435182 1 Tablet(s) Oral two times a da y 03/14/2020 03/13/2020 Inactive levofloxacin 500 mg tablet RxNorm: 873732 1 Tablet(s) Oral QD 02/1802/26/2020 Inactive levofloxacin 500 mg tablet RxNorm: 413088 1 Tablet(s) Oral QD 02/1802/18/2020 Inactive Tessalon Perles 100 mg capsule RxNorm: 330663 1 Capsule (s) Oral three times a day as needed 02/16/2020 02/25/2020 Inactive levothyroxine 137 mcg tablet RxNorm: 017648 TAKE 1 TABLET BY [facility] ONCE DAILY 02/15/2020 03/15/2020 Inactive ProAir HFA 90 mcg/actuation aerosol inhaler RxNorm: 464360 2 Inhalation Q4H as needed 02/11/2020 09/18/2020 Inactive Medrol (Isaiah) 4 mg tablets in a dose pack RxNorm: 602893 Tablet( s) Oral 02/11/2020 02/11/2020 Inactive levothyroxine 137 mcg tablet RxNorm: 501438 TAKE 1 TABLET BY [facility] ONCE DAILY 12/16/2019 01/14/2020 Inactive propranolol 20 mg tablet RxNorm: 505318 TAKE 1 TABLET BY MOUTH TWICE DAILY 12/16/2019 01/14/2020 Inactive levothyroxine 137 mcg tablet RxNorm: 264358 TAKE 1 TABLET BY [facility] ONCE DAILY 10/16/2019 11/14/2019 Inactive prednisone 20 mg tablet RxNorm: 486100 1 Tablet(s) Oral two times a day for rash/hives 09/29/2019 10/04/2019 Inactive Probiotic 10 billion cell capsule RxNorm: 4961325 1 Capsule(s) O ral QD 09/14/2019 02/10/2020 Inactive Bactrim DS 800 mg-160 mg tablet RxNorm: 618564 1 Tablet(s) Oral two times a day 09/14/2019 09/13/2019 Inactive citalopram 10 mg tablet RxNorm: 435198 1 Tablet(s) Oral two antonio es a day 09/14/2019 12/20/2019 Inactive hydroxychloroquine 200 mg tablet RxNorm: 056915 1 Table t(s) Oral two times a day 09/14/2019 02/05/2022 Inactive Bactrim DS 800 mg-160 mg tablet RxNorm: 459470 1 Tablet(s) Oral two times a day 09/14/2019 09/24/2019 Inactive Cipro 250 mg tablet RxNorm: 672178 1 Tablet(s) Oral two times a day 09/02/2019 09/08/2019 Inactive levothyroxine 137 mcg tablet RxNorm: 377741 1 Tablet(s) Oral QD 10/10/2019 Inactive levothyroxine 137 mcg tablet RxNorm: 443700 1 Tablet(s) Oral QD 08/11/2019 Inactive propranolol 20 mg tablet RxNorm: 259620 TAKE 1 TABLET BY MOUTH TWICE DAILY 06/18/2019 12/14/2019 Inactive 06/18/2019 11:09:41 AM Cipro 250 mg tablet RxNorm: 665756 1 Tablet(s) Oral two times a day 04/17/2019 04/16/2019 Inactive Cipro 250 mg tablet RxNorm: 986783 1 Tablet(s) Oral two times a day 04/17/2019 04/24/2019 Inactive Macrobid 100 mg capsule RxNorm: 645208 1 Capsule(s) Oral two ti mes a day 04/15/2019 04/16/2019 Inactive metronidazole 500 mg tablet RxNorm: 671187 1 Tablet(s) Oral thr ee times a day 03/18/2019 03/28/2019 Inactive Bactrim DS 800 mg-160 mg tablet RxNorm: 053283 1 Tablet(s) Oral two times a day 03/18/2019 03/18/2019 Inactive Cipro 250 mg tablet RxNorm: 321077 1 Tablet(s) PO BID 01/26/201901/22 Inactive Flagyl 500 mg tablet RxNorm: 934151 1 Tablet(s) PO TID 01/26/201904/2019 Inactive prednisone 20 mg tablet RxNorm: 066298 1 Tablet(s) PO B ID for 4 days then 1 po daily for 4 days 01/08/2019 03/17/2019 Inactive doxycycline hyclate 100 mg capsule RxNorm: 4980325 1 Capsule(s) PO BID 01/08/2019 01/14/2019 Inactive doxycycline hyclate 100 mg capsule RxNorm: 5844814 1 Capsule(s) PO BID 01/08/2019 01/07/2019 Inactive propranolol 20 mg tablet RxNorm: 317463 1 Tablet(s) PO BID 12/24/1906/17/2019 Inactive Bactrim DS 800 mg-160 mg tablet RxNorm: 974393 1 Tablet (s) PO BID repeat urine culture 48 hours after antibiotics completed. 12/15/2018 12/14/2018 In active Bactrim DS 800 mg-160 mg tablet RxNorm: 457726 1 Tablet (s) PO BID repeat urine culture 48 hours after antibiotics completed. 12/15/2018 12/19/2018 In active levothyroxine 137 mcg tablet RxNorm: 443043 1 Tablet(s) PO QD 12/0906/06/2019 Inactive meclizine 25 mg tablet RxNorm: 409299 1 Tablet(s) PO TID for di zziness 10/30/2018 11/08/2018 Inactive doxycycline hyclate 100 mg tablet RxNorm: 8486272 1 Tablet(s) PO BI D 10/07/2018 10/16/2018 Inactive albuterol sulfate HFA 90 mcg/actuation aerosol inhaler RxNor m: 302616 2 Puff(s) INH Q4H as needed 10/07/2018 02/10/2020 Inactive chlorpheniramine 4 mg tablet RxNorm: 1698197 1 Tablet(s) PO QHS for allergies 10/07/2018 03/17/2019 Inactive Tessalon 200 mg capsule RxNorm: 682303 1 Capsule(s) PO TID 10/08/1910/26/2018 Inactive doxycycline hyclate 100 mg tablet RxNorm: 5081654 1 Tablet(s) PO BI D 10/07/2018 10/06/2018 Inactive Tessalon 200 mg capsule RxNorm: 336896 1 Capsule(s) PO TID 10/08/1910/06/2018 Inactive levothyroxine 137 mcg tablet RxNorm: 618717 1 Tablet(s) PO QD 08/0512/02/2018 Inactive propranolol 20 mg tablet RxNorm: 406489 1 Tablet(s) PO BID 06/23/2012/19/2018 Inactive chlorpheniramine 4 mg tablet RxNorm: 1919924 1 Tablet(s) PO QHS for allergies 06/23/2018 08/21/2018 Inactive levothyroxine 137 mcg tablet RxNorm: 363110 1 Tablet(s) PO QD 06/0308/01/2018 Inactive levothyroxine 137 mcg tablet RxNorm: 369470 1 Tablet(s) PO QD 06/0306/02/2018 Inactive Synthroid 150 mcg tablet RxNorm: 256340 1 Tablet(s) PO QD 04/03/2018 06/22/2018 Inactive Synthroid 150 mcg tablet RxNorm: 639721 1 Tablet(s) PO QD 04/03/2018 04/02/2018 Inactive propranolol 20 mg tablet RxNorm: 353841 1 Tablet(s) PO BID 03/17/20 18 06/14/2018 Inactive propranolol 20 mg tablet RxNorm: 141795 1 Tablet(s) PO BID 03/17/20 18 06/21/2020 Inactive Lancets,Ultra Thin RxNorm: Miscellaneous Use to test blood sugar daily and as needed (Dx: E11.65) 02/28/2018 05/09/2022 Inactive Contour Test Strips RxNorm: Miscellaneous Test b lood sugar daily and as needed (Dx: E11.65) 02/28/2018 05/09/2022 Inactive Contour Meter RxNorm: 1 Miscellaneous DX: E11.65 02/27/20182021 Inactive DX: E11.65 Synthroid 175 mcg tablet RxNorm: 935344 1 Tablet(s) PO QD 01/28/2018 04/02/2018 Inactive Synthroid 175 mcg tablet RxNorm: 094431 1 Tablet(s) PO QD 01/16/2018 04/02/2018 Inactive Medrol (Isaiah) 4 mg tablets in a dose pack RxNorm: 298768 Tablet(s) P O 10/16/2017 01/15/2018 Inactive cyclobenzaprine 7.5 mg tablet RxNorm: 491346 1/2-1 Tablet(s) PO TID as needed 10/16/2017 06/22/2018 Inactive pantoprazole 40 mg tablet,delayed release RxNorm: 395243 1 Tabl et(s) PO QD 08/21/2017 06/22/2018 Inactive Nexium 40 mg capsule,delayed release RxNorm: 022322 1 Capsule(s ) PO QD 08/20/2017 08/20/2017 Inactive doxycycline hyclate 100 mg capsule RxNorm: 6365588 1 Capsule(s) PO BID 08/13/2017 08/12/2017 Inactive doxycycline hyclate 100 mg capsule RxNorm: 4035009 1 Capsule(s) PO BID 08/13/2017 08/19/2017 Inactive Tessalon Perles 100 mg capsule RxNorm: 997466 1 Capsule(s) PO T ID as needed 07/29/2017 08/07/2017 Inactive prednisone 20 mg tablet RxNorm: 678309 1 Tablet(s) PO BID 07/25/2017 07/27/2017 Inactive albuterol sulfate HFA 90 mcg/actuation aerosol inhaler RxNor m: 235276 2 Puff(s) INH Q4H as needed 07/25/2017 10/06/2018 Inactive doxycycline hyclate 100 mg capsule RxNorm: 9539794 1 Capsule(s) PO BID 06/10/2017 06/19/2017 Inactive prednisone 20 mg tablet RxNorm: 648085 1 Tablet(s) PO T ID for 2 days then 1 po BID for 2 days then 1 daily for 3 days 06/10/2017 08/12/2017 Inactive fenofibrate micronized 134 mg capsule RxNorm: 751494 TAKE 1 CAP KIMI DAILY 06/03/2017 06/22/2018 Inactive Zithromax Z-Isaiah 250 mg tablet RxNorm: 501522 Tablet(s) PO Take as directed 05/28/2017 06/09/2017 Inactive prednisone 20 mg tablet RxNorm: 353271 2 Tablet(s) PO QD 05/28/2017 1 08/01/2016 Inactive Tessalon Perles 100 mg capsule RxNorm: 153494 1 Capsule(s) PO T ID as needed 05/28/2017 06/09/2017 Inactive Janumet XR 100 mg-1,000 mg tablet,extended release RxNorm: 1 014356 1 Tablet(s) PO QD 02/14/2017 06/22/2018 Inactive fluoxetine 40 mg capsule RxNorm: 228219 1 Capsule(s) PO QD 02/15/20 17 06/22/2018 Inactive Vitamin D2 50,000 unit capsule RxNorm: 119424 1 Capsule (s) PO TAKE 1 CAPSULE BY MOUTH TWICE WEEKLY 02/11/2017 07/10/2017 Inactive Generic For:* DRISDOL 02/03/2015 10:10:59 AM Janumet XR 100 mg-1,000 mg tablet,extended release RxNorm: 1 083917 1 Tablet(s) PO QD 09/24/2016 10/06/2018 Inactive Vitamin D2 50,000 unit capsule RxNorm: 668611 Capsule(s ) TAKE 1 CAPSULE BY MOUTH TWICE WEEKLY 09/11/2016 02/11/2017 Inactive Generic For:*VERN NAVARRETEOL [id number] 02/03/2015 10:10:59 AM Pepcid 20 mg tablet RxNorm: 168486 Tablet(s) PO TAKE 1 TABLET BY MOUTH TWICE DAILY. 06/14/2016 06/13/2016 Inactive fluoxetine 40 mg capsule RxNorm: 107038 1 Capsule(s) PO QD 06/14/20 16 12/10/2016 Inactive loratadine 10 mg tablet RxNorm: 029494 1 Tablet(s) PO QD 1 Tabl et(s) PO BID 06/14/2016 04/03/2017 Inactive [AttnRPh: Saving ryan ly/adjudicate RxGRP:SG20 RxBIN:[id number] RxPCN: ID#:[id number]] Vitamin D2 50,000 unit capsule RxNorm: 372572 Capsule(s ) TAKE 1 CAPSULE BY MOUTH TWICE WEEKLY 06/14/2016 09/10/2016 Inactive Generic For:*VERN NAVARRETEOL [id number] 02/03/2015 10:10:59 AM Synthroid 175 mcg tablet RxNorm: 736803 1 Tablet(s) PO Saturday t hrough Saturday QD 06/05/2016 01/15/2018 Inactive Synthroid 150 mcg tablet RxNorm: 539162 1 Tablet(s) PO Sat and Sun 11/09/2015 06/04/2016 Inactive Synthroid 175 mcg tablet RxNorm: 670037 1 Tablet(s) PO Saturday t hrough Saturday11/09/2015 06/04/2016 Inactive Synthroid 150 mcg tablet RxNorm: 243347 1 Tablet(s) PO Sat and Sun , Sat, Sun 11/09/2015 11/08/2015 Inactive Janumet XR 100 mg-1,000 mg tablet,extended release RxNorm: 1 536561 TAKE 1 TABLET DAILY 09/30/2015 09/24/2016 Inactive azithromycin 500 mg tablet RxNorm: 814512 1 Tablet(s) PO QD 016 07/25/2015 Inactive azithromycin 500 mg tablet RxNorm: 847641 1 Tablet(s) PO QD 016 08/01/2015 Inactive loratadine 10 mg tablet RxNorm: 781777 1 Tablet(s) PO BID 04/06/2015 06/14/2016 Inactive [AttnRPh: Saving apply/adjudicate RxGRP: SG20 RxBIN:[id number] RxPCN: ID#:[id number]] Synthroid 175 mcg tablet RxNorm: 588330 1 Tablet(s) PO M, W, F 10/201411/08/2015 Inactive Synthroid 150 mcg tablet RxNorm: 495679 1 Tablet(s) PO QD Tu, T h, Sat, Sun 03/28/2015 11/08/2015 Inactive propranolol 20 mg tablet RxNorm: 656667 1 Tablet(s) PO BID 02/09/20 15 06/13/2016 Inactive fluoxetine 40 mg capsule RxNorm: 946562 1 Capsule(s) PO QD 02/09/20 15 06/14/2016 Inactive Vitamin D2 50,000 unit capsule RxNorm: 355232 TAKE 1 CA PSULE BY MOUTH TWICE WEEKLY 02/03/2015 06/14/2016 Inactive Generic For:*VERN FREEDMAN [id number] 02/03/2015 10:10:59 AM Lipitor 80 mg tablet RxNorm: 945627 1 Tablet(s) PO QD 01/24/201507/26 Inactive [AttnRPh: Saving apply/adjudicate RxGRP: SG20 RxBIN:[id number] RxPCN: ID#:[id number]] Bactrim DS 800 mg-160 mg tablet RxNorm: 779853 1 Tablet(s) PO BID 0 01/12/2015 01/11/2015 Inactive Synthroid 150 mcg tablet RxNorm: 247676 1 Tablet(s) PO QD 01/12/2015 03/27/2015 Inactive Bactrim DS 800 mg-160 mg tablet RxNorm: 248682 1 Tablet(s) PO BID 0 01/12/2015 01/18/2015 Inactive fluoxetine 40 mg capsule RxNorm: 067936 1 Capsule(s) PO QD 01/12/20 15 02/07/2015 Inactive Synthroid 137 mcg tablet RxNorm: 029887 1 Tablet(s) PO QD 12/08/2014 01/11/2015 Inactive [AttnRPh: Saving apply/adjudicate RxGRP: SG20 RxBIN:[id number] RxPCN: ID#:[id number]] Medrol (Isaiah) 4 mg tablets in a dose pack RxNorm: 446389 6 Tablet(s) PO QD --then as directed 11/24/2014 11/29/2014 Inactive albuterol sulfate HFA 90 mcg/actuation aerosol inhaler RxNor m: 287088 2 Puff(s) INH Q4H as needed 10/27/2014 07/24/2017 Inactive phenazopyridine 100 mg tablet RxNorm: 8907575 1 Tablet(s) PO TID 11/07/2015 Inactive [AttnRPh: Saving apply/adjud icate RxGRP:SG20 RxBIN:[id number] RxPCN: ID#:[id number]] Macrobid 100 mg capsule RxNorm: 339123 1 Capsule(s) PO BID 10/28/19 15 11/02/2014 Inactive [SAVINGS FOR NON-COVERED RUBIO GS -- BIN:540091, PCN: ASPROD1, Group: XXXXX, ID# [id number], Questions: . THIS IS NOT INSURANCE.] prednisone 20 mg tablet RxNorm: 099626 1 Tablet(s) PO BID 10/27/2014 10/31/2014 Inactive AttnRPh: Saving apply/adjudicate RxGRP:S G20 RxBIN:[id number] RxPCN:HT ID#:[id number]: Saving apply/adjudicate RxGRP:SG20 RxBIN:[id number] RxPCN:HT ID#:[id number] Macrobid 100 mg capsule RxNorm: 418266 1 Capsule(s) PO BID 09/24/19 15 09/29/2014 Inactive [SAVINGS FOR NON-COVERED RUBIO GS -- BIN:229300, PCN: ASPROD1, Group: XXXXX, ID# [id number], Questions: . THIS IS NOT INSURANCE.] phenazopyridine 100 mg tablet RxNorm: 2061477 1 Tablet(s) PO TID 09/24/2014 Inactive [SAVINGS FOR NON-COVERED RUBIO GS -- BIN:477256, PCN: ASPROD1, Group: XXXXX, ID# [id number], Questions: . THIS IS NOT INSURANCE.] propranolol 60 mg tablet RxNorm: 616507 1 Tablet(s) PO QD 07/26/2014 02/07/2015 Inactive [SAVINGS FOR UNINSURED PATIENTS -- BIN:0 80122, PCN: ASPROD1, Group: AME08, ID# [id number], Process claim through [employer], for questions: . THIS IS NOT INSURANCE.] loratadine 10 mg tablet RxNorm: 260005 1 Tablet(s) PO BID 07/12/2014 07/11/2014 Inactive [AttnRPh: Saving apply/adjudicate RxGRP: SG20 RxBIN:[id number] RxPCN: ID#:[id number]] loratadine 10 mg tablet RxNorm: 284833 1 Tablet(s) PO BID 07/12/2014 10/06/2018 Inactive [SAVINGS FOR UNINSURED PATIENTS -- BIN:0 92478, PCN: ASPROD1, Group: AME08, ID# [id number], Process claim through [employer], for questions: . THIS IS NOT INSURANCE.] Vitamin D2 50,000 unit capsule RxNorm: 361223 1 Capsule (s) PO Take 1 capsule by mouth twice weekly 05/18/2014 02/02/2015 Inactive Pepcid 20 mg tablet RxNorm: 253616 TAKE 1 TABLET BY MOUTH TWICE DAILY. 05/18/2014 06/14/2016 Inactive Generic For:PEPCID 2 0MG 05/18/2014 11:28:51 AM Janumet XR 100 mg-1,000 mg tablet,extended release RxNorm: 1 440331 1 Tablet(s) PO QD 05/12/2014 08/09/2014 Inactive [SAVINGS FOR UNI NSURED PATIENTS -- BIN:831993, PCN: ASPROD1, Group: AME08, ID# [id number], Process claim through [employer], for questions: . THIS IS NOT INSURANCE.] Voltaren 1 % topical gel RxNorm: 516874 TOP BID 04/21/2014 5 Inactive Apply to affected areas 2-3 times daily as needed. Trilipix 135 mg capsule,delayed release RxNorm: 421167 1 Tablet(s) PO QD 1 Capsule(s) PO QD 04/21/2014 09/17/2014 Inactive may do 90 day f ill if desired Synthroid 137 mcg tablet RxNorm: 128792 1 Tablet(s) PO QD 03/30/2014 09/25/2014 Inactive [AttnRPh: Saving apply/adjudicate RxGRP: SG20 RxBIN:[id number] RxPCN:HT ID#:[id number]] Cipro 250 mg tablet RxNorm: 817581 1 Tablet(s) PO BID 03/30/201403/24 Inactive [SAVINGS FOR UNINSURED PATIENTS -- BIN:0 86779, PCN: ASPROD1, Group: AME08, ID# [id number], Process claim through [employer], for questions: . THIS IS NOT INSURANCE.] Janumet XR 100 mg-1,000 mg tablet,extended release RxNorm: 1 147332 2 Tablet(s) PO QD 01/06/2014 01/05/2014 Inactive [SAVINGS FOR UNI NSURED PATIENTS -- BIN:018941, PCN: ASPROD1, Group: AME08, ID# [id number], Process claim through [employer], for questions: . THIS IS NOT INSURANCE.] Janumet XR 100 mg-1,000 mg tablet,extended release RxNorm: 1 465803 1 Tablet(s) PO QD 01/06/2014 04/05/2014 Inactive [SAVINGS FOR UNI NSURED PATIENTS -- BIN:003352, PCN: ASPROD1, Group: AME08, ID# [id number], Process claim through [employer], for questions: . THIS IS NOT INSURANCE.] propranolol 60 mg tablet RxNorm: 549017 1 Tablet(s) PO QD 12/28/2013 07/26/2014 Inactive [AttnRPh: Saving apply/adjudicate RxGRP: SG20 RxBIN:[id number] RxPCN:HT ID#:[id number]] Synthroid 150 mcg tablet RxNorm: 727509 1 Tablet(s) PO QD brand onl y 12/28/2013 04/20/2014 Inactive [AttnRPh: Saving apply/adjud icate RxGRP:SG20 RxBIN:548653 RxPCN:HT ID#:[id number]] Vitamin D2 50,000 unit capsule RxNorm: 712583 1 Capsule (s) PO Take 1 capsule by mouth twice weekly 12/02/2013 05/17/2014 Inactive Lipitor 80 mg tablet RxNorm: 390922 1 Tablet(s) PO QD 11/24/201305/25 Inactive [AttnRPh: Saving apply/adjudicate RxGRP: SG20 RxBIN:558308 RxPCN:HT ID#:[id number]] loratadine 10 mg tablet RxNorm: 472409 1 Tablet(s) PO BID 11/17/2013 07/12/2014 Inactive fluoxetine 20 mg capsule RxNorm: 210813 1 Capsule(s) PO QAM TAKE ONE CAPSULE BY MOUTH ONCE DAILY IN THE MORNING. 11/04/2013 01/10/2015 Inactive Generic For:PROZAC 20MG Generic For:PROZAC 20MG 06/23/2013 11:55:55 AM [AttnRPh: Saving apply/adjudicate RxGRP:SG20 RxBIN:[id number] RxPCN:HT ID#:[id number]] Vytorin 10 mg-80 mg tablet RxNorm: 8943287 Tablet(s) PO TAKE ONE TABLET BY MOUTH ONCE DAILY IN THE EVENING. 09/30/2013 11/23/2013 Inactive Trilipix 135 mg capsule,delayed release RxNorm: 000298 1 Capsul e(s) PO QD 07/15/2013 04/21/2014 Inactive may do 90 day fill i f desired Voltaren 1 % topical gel RxNorm: 585303 TOP BID 07/15/2013 4 Inactive Apply to affected areas 2-3 times daily as needed. Wellbutrin XL 300 mg 24 hr tablet, extended release RxNorm: 419971 1 Tablet(s) PO QAM 06/29/2013 04/03/2017 Inactive fluoxetine 20 mg capsule RxNorm: 621790 1 Capsule(s) PO QAM TAKE ONE CAPSULE BY MOUTH ONCE DAILY IN THE MORNING. 06/29/2013 11/04/2013 Inactive Generic For:PROZAC 20MG Generic For:PROZAC 20MG 06/23/2013 11:55:55 AM fluoxetine 20 mg capsule RxNorm: 393797 Capsule(s) PO T BRIA ONE CAPSULE BY MOUTH ONCE DAILY IN THE MORNING. 06/23/2013 06/28/2013 Inactive Gener ic For:PROZAC 20MG Generic For:PROZAC 20MG 06/23/2013 11:55:55 AM Synthroid 150 mcg tablet RxNorm: 029476 1 Tablet(s) PO QD brand onl y 06/08/2013 12/04/2013 Inactive Vytorin 10 mg-80 mg tablet RxNorm: 5760044 1 Tablet(s) PO QD 201209/05/2013 Inactive TAKE 1 TABLET BY MOUTH DAILY propranolol 60 mg tablet RxNorm: 543839 1 Tablet(s) PO QD 06/08/2013 12/04/2013 Inactive Pepcid 20 mg tablet RxNorm: 215807 Tablet(s) PO TAKE 1 TABLET BY MOUTH TWICE DAILY. 06/04/2013 11/23/2013 Inactive fluoxetine 20 mg capsule RxNorm: 256556 1 Capsule(s) PO QAM 013 06/22/2013 Inactive Wellbutrin XL 300 mg 24 hr tablet, extended release RxNorm: 530682 1 Tablet(s) PO QAM 05/26/2013 06/28/2013 Inactive Wellbutrin XL 150 mg 24 hr tablet, extended release RxNorm: 529229 1 Tablet(s) PO QD 05/15/2013 05/25/2013 Inactive Wellbutrin XL 150 mg 24 hr tablet, extended release RxNorm: 134645 1 Tablet(s) PO QD 05/15/2013 05/14/2013 Inactive Kombiglyze XR 5 mg-500 mg tablet,extended release RxNorm: 10 75062 1 Tablet(s) PO QD 05/07/2013 05/15/2013 Inactive cefdinir 300 mg capsule RxNorm: 025422 2 Capsule(s) PO QD 04/23/2013 05/02/2013 Inactive AttnRPh: Saving apply/adjudicate RxGRP:S G20 RxBIN:[id number] RxPCN: ID#:[id number] Pepcid 20 mg tablet RxNorm: 383255 Tablet(s) PO TAKE 1 TABLET BY MOUTH TWICE DAILY. 04/17/2013 06/13/2016 Inactive Pepcid 20 mg tablet RxNorm: 373964 1 Tablet(s) PO BID 04/06/201305/24 Inactive Vytorin 10-80 10 mg-80 mg tablet RxNorm: 758342 1 Tablet(s) PO QD 0 02/19/2013 06/08/2013 Inactive TAKE 1 TABLET BY MOUTH DAILY loratadine 10 mg tablet RxNorm: 646756 1 Tablet(s) PO BID 01/23/2013 07/21/2013 Inactive Synthroid 150 mcg tablet RxNorm: 916139 1 Tablet(s) PO QD brand onl y 12/02/2012 06/08/2013 Inactive propranolol 60 mg tablet RxNorm: 177023 1 Tablet(s) PO QD 12/02/2012 06/08/2013 Inactive Trilipix 135 mg capsule,delayed release RxNorm: 250123 1 Capsul e(s) PO QD 12/02/2012 05/30/2013 Inactive may do 90 day fill i f desired Pepcid 20 mg tablet RxNorm: 238344 1 Tablet(s) PO BID 11/27/201203/24 Inactive Effexor XR 150 mg capsule,extended release RxNorm: 187342 1 Cap kimi(s) PO QD 11/24/2012 05/14/2013 Inactive Vytorin 10-80 10 mg-80 mg tablet RxNorm: 429310 1 Tablet(s) PO QD 0 11/24/2012 2013 Inactive TAKE 1 TABLET BY MOUTH DAILY Vytorin 10-80 10 mg-80 mg tablet RxNorm: 879083 1 Tablet(s) PO QD 0 11/21/2012 11/24/2012 Inactive TAKE 1 TABLET BY MOUTH DAILY Effexor XR 150 mg capsule,extended release RxNorm: 412740 1 Cap kimi(s) PO QD 11/21/2012 11/24/2012 Inactive loratadine 10 mg tablet RxNorm: 1206771 1 Tablet(s) PO BID 11/12/19 13 01/23/2013 Inactive Vytorin 10-80 10 mg-80 mg tablet RxNorm: 539495 Tablet( s) PO TAKE 1 TABLET BY MOUTH ONCE DAILY. 10/15/2012 11/21/2012 Inactive Vytorin 10-80 10 mg-80 mg tablet RxNorm: 711108 1 Tablet(s) PO QD 0 10/15/2012 11/20/2012 Inactive TAKE 1 TABLET BY MOUTH DAILY Effexor XR 150 mg capsule,extended release RxNorm: 511163 1 Cap kimi(s) PO QD 10/15/2012 11/20/2012 Inactive Effexor XR 150 mg capsule,extended release RxNorm: 010876 Capsule(s) PO TAKE 1 CAPSULE BY MOUTH ONCE DAILY 10/15/2012 11/21/2012 Inactive azithromycin 250 mg tablet RxNorm: 919703 2 Tablet(s) PO QD 013 09/10/2012 Inactive Culturelle 10 billion cell capsule RxNorm: 942098 1 Cap kimi(s) PO BID for diarrhea maintenance 09/03/2012 10/02/2012 Inactive Medrol (Isaiah) 4 mg tablets in a dose pack RxNorm: 287959 Tablet(s) PO as directed 09/03/2012 07/11/2011 Active as directed Culturelle 10 billion cell capsule RxNorm: 917007 1 Capsule(s) PO BID 07/23/2012 08/21/2012 Inactive Vitamin D2 50,000 unit capsule RxNorm: 897396 Capsule(s ) PO TAKE 1 CAPSULE EVERY DAY SATURDAY THRU Saturday07/09/2012 08/20/2013 Inactive Vitamin D2 50,000 unit capsule RxNorm: 5518665 Capsule(s ) PO TAKE 1 CAPSULE EVERY DAY SATURDAY THRU Saturday07/07/2012 07/08/2012 Inactive Vitamin D2 50,000 unit capsule RxNorm: 9624857 Capsule(s ) PO TAKE 1 CAPSULE EVERY DAY SATURDAY THRU Saturday07/07/2012 07/06/2012 Inactive Vitamin D2 50,000 unit capsule RxNorm: 4336014 Capsule(s ) PO TAKE 1 CAPSULE EVERY DAY SATURDAY THRU Saturday06/27/2012 07/06/2012 Inactive Synthroid 150 mcg tablet RxNorm: 823475 1 Tablet(s) PO QD brand onl y 06/09/2012 12/02/2012 Inactive metformin 1,000 mg tablet RxNorm: 124717 1 Tablet(s) PO BID rep laces 500mg dose 05/20/2012 11/10/2012 Inactive propranolol 60 mg tablet RxNorm: 274577 1 Tablet(s) PO QD 04/23/2012 12/02/2012 Inactive Effexor XR 150 mg capsule,extended release RxNorm: 543181 1 Cap kimi(s) PO QD 04/04/2012 09/30/2012 Inactive Zyrtec 10 mg tablet RxNorm: 9426744 1 Tablet(s) PO QD 04/04/201203/24 Inactive Trilipix 135 mg capsule,delayed release RxNorm: 814503 1 Capsul e(s) PO QD 03/19/2012 12/02/2012 Inactive may do 90 day fill i f desired Vytorin 10-80 10 mg-80 mg tablet RxNorm: 649640 1 Tablet(s) PO QD 0 01/31/2012 07/28/2012 Inactive TAKE 1 TABLET BY MOUTH DAILY Voltaren 1 % topical gel RxNorm: 134083 TOP BID 01/25/2012 4 Inactive Apply to affected areas 2-3 times daily as needed. Synthroid 150 mcg tablet RxNorm: 351001 1 Tablet(s) PO QD brand onl y 01/02/2012 06/09/2012 Inactive metformin ER 1,000 mg 24 hr Tab Ctrl Rel RxNorm: 824256 1 Table t(s) PO QD 01/02/2012 05/19/2012 Inactive metformin ER 500 mg 24 hr Tab RxNorm: 931048 Tablet(s) PO 12/21/2011 01/01/2012 Inactive TAKE 1 TABLET BY MOUTH ONCE DAILY. Voltaren 1 % Topical Gel RxNorm: 896978 TOP BID 11/28/2011 2 Inactive Apply to affected areas 2-3 times daily as needed. propranolol 60 mg tablet RxNorm: 962819 1 Tablet(s) PO QD 10/17/2011 04/23/2012 Inactive Effexor XR 150 mg capsule,extended release RxNorm: 837330 1 Cap kimi(s) PO QD 09/13/2011 04/04/2012 Inactive Medrol (Isaiah) 4 mg tablets in a dose pack RxNorm: 147191 Tablet(s) PO as directed 09/04/2011 07/11/2011 Active as directed doxycycline hyclate 100 mg Tab RxNorm: 7426618 1 Tablet(s) PO BID 0 09/04/2011 09/13/2011 Inactive doxycycline monohydrate 100 mg Tab RxNorm: 9094729 1 Tablet(s) P O BID 07/25/2011 08/03/2011 Inactive prednisone 10 mg Tab RxNorm: 855863 1 Tablet(s) PO TID 07/25/201112/2011 Inactive Synthroid 150 mcg Tab RxNorm: 041402 1 Tablet(s) PO QD brand only 0 07/12/2011 01/02/2012 Inactive Vytorin 10-80 10 mg-80 mg Tab RxNorm: 148642 1 Tablet(s) PO QD 05/2601/31/2012 Inactive TAKE 1 TABLET BY MOUTH DAILY Vitamin D2 50,000 unit capsule RxNorm: 5241345 1 Capsule(s) PO Q D M-F 05/15/2011 06/26/2012 Inactive TAKE 1 CAPSULE BY [facility] DAILY SATURDAY THROUGH FRIDAYS Synthroid 150 mcg Tab RxNorm: 391119 1 Tablet(s) PO QD brand only 1 07/09/2010 07/11/2011 Inactive doxycycline monohydrate 100 mg Tab RxNorm: 2274278 1 Tablet(s) P O BID 04/25/2011 05/04/2011 Inactive Trilipix 135 mg capsule,delayed release RxNorm: 971522 1 Capsul e(s) PO QD 04/23/2011 03/19/2012 Inactive cefdinir 300 mg Cap RxNorm: 513170 1 Capsule(s) PO BID 04/04/2011 Inactive propranolol 60 mg Tab RxNorm: 034041 1 Tablet(s) PO QD 03/26/2011 Inactive Ultram 50 mg Tab RxNorm: 919639 1-2 Tablet(s) PO QID 03/22/201103/21 Active prn pain metformin ER 500 mg 24 hr Tab RxNorm: 845847 1 Tablet(s) PO QD 06/201006/21/2011 Inactive Synthroid 150 mcg Tab RxNorm: 549398 1 Tablet(s) PO QD 02/22/201112/2010 Inactive Vytorin 10-80 10 mg-80 mg Tab RxNorm: 194684 1 Tablet(s) PO QD 01/2303/13/2011 Inactive TAKE 1 TABLET BY MOUTH DAILY Trilipix 135 mg Cap RxNorm: 503278 1 Capsule(s) PO QD 01/10/201103/26 Inactive Effexor XR 150 mg 24 hr Cap RxNorm: 787340 1 Capsule(s) PO QD 01/0908/06/2011 Inactive Vitamin D 50,000 unit Cap RxNorm: 5972058 Capsule(s) PO 12/20/2010 Inactive TAKE 1 CAPSULE BY MOUTH DAILY Fridays Septra DS 800 mg-160 mg Tab RxNorm: 244291 1 Tablet(s) PO BID 12/0712/16/2010 Inactive mupirocin 2 % Ointment RxNorm: 840141 1 Application TOP BID Apply to affected area twice daily 12/07/2010 12/13/2010 Inactive Trilipix 135 mg Cap RxNorm: 006702 1 Capsule(s) PO QD 10/16/201003/26 Inactive Synthroid 150 mcg Tab RxNorm: 906226 1 Tablet(s) PO QD 10/09/201006/2010 Inactive metformin ER 500 mg 24 hr Tab RxNorm: 357538 1 Tablet(s) PO QD 09/2202/22/2011 Inactive Nexium 40 mg Cap RxNorm: 051118 1 Capsule(s) PO QD 10/05/2010 019 Inactive Vytorin 10-80 10 mg-80 mg Tab RxNorm: 371746 1 Tablet(s) PO QD 09/201002/12/2011 Inactive propranolol 60 mg Tab RxNorm: 448584 1 Tablet(s) PO QD 09/18/201008/2010 Inactive Synthroid 125 mcg Tab RxNorm: 101197 1 Tablet(s) PO QD 08/07/2010 Inactive Synthroid 125 mcg Tab RxNorm: 177122 1 Tablet(s) PO QD 08/07/2010 Inactive Voltaren 1 % Topical Gel RxNorm: 998312 TOP BID Apply t o affected areas 2-3 times daily as needed. 08/01/2010 11/28/2011 Inactive Voltaren 1 % Topical Gel RxNorm: 643453 TOP BID Apply t o affected areas 2-3 times daily as needed. 07/04/2010 07/31/2010 Inactive Advair Diskus 250 mcg-50 mcg/dose for Inhalation RxNorm: 135 9859 1 Puff(s) INH Q12H 07/04/2010 07/11/2011 Inactive Effexor XR 150 mg 24 hr Cap RxNorm: 730059 1 Capsule(s) PO QD 06/0801/03/2011 Inactive Synthroid 100 mcg Tab RxNorm: 537871 1 Tablet(s) PO QD 06/06/2010 Inactive Vitamin D 50,000 unit Cap RxNorm: 6095054 1 Capsule(s) PO QD M-F 05/15/2011 Inactive Synthroid 150 mcg Tab RxNorm: 236514 1 Tablet(s) PO 05/25/20102010 Inactive Vytorin 10-80 10 mg-80 mg Tab RxNorm: 793863 1 Tablet(s) PO QD 04/2509/25/2010 Inactive Trilipix 135 mg Cap RxNorm: 562651 1 Capsule(s) PO QD 04/17/201009/23 Inactive propranolol 60 mg Tab RxNorm: 423451 1 Tablet(s) PO QD 01/09/2010 Inactive Advair Diskus 250 mcg-50 mcg/dose for Inhalation RxNorm: 135 9859 1 Puff(s) INH Q12H 12/26/2009 07/04/2010 Inactive Advair Diskus 250 mcg-50 mcg/Dose for Inhalation RxNorm: 135 9859 1 Puff(s) INH Q12H 11/26/2009 12/25/2009 Inactive Synthroid 200 mcg Tab RxNorm: 752374 1 Tablet(s) PO QD 11/24/2009 Inactive Effexor XR 150 mg 24 hr Cap RxNorm: 922289 1 Capsule(s) PO QD 10/2705/24/2010 Inactive Lisinopril 10 mg Tab RxNorm: 244500 1 Tablet(s) PO QD 10/17/200909/23 Inactive Propranolol 60 mg Tab RxNorm: 821068 1 Tablet(s) PO QD 10/17/2009 Inactive Septra DS 160 mg-800 mg Tab RxNorm: 694224 1 Tablet(s) PO BID 10/0410/08/2009 Inactive Mupirocin 2 % Ointment RxNorm: 715369 TOP Q6-8H 10/04/2009 10/10/2009 Inactive Voltaren 1 % Topical Gel RxNorm: 987682 TOP BID Apply t o affected areas 2-3 times daily as needed. 09/21/2009 03/19/2010 Inactive Trilipix 135 mg Cap RxNorm: 214664 1 Capsule(s) PO QD 09/20/200902/23 Inactive Nexium 40 mg Cap RxNorm: 143226 1 Capsule(s) PO QD 09/19/2009 010 Inactive Tylenol Arthritis 650 mg Tab RxNorm: 8640821 2 Tablet(s) PO BID 09/21 Active Vitamin D3 5,000 unit tablet RxNorm: 659803 1 Tablet(s) PO QD 019 Active Synthroid 150 mcg tablet RxNorm: 071198 1 Tablet(s) PO QD 01/12/2015 01/11/2015 Inactive Synthroid 150 mcg tablet RxNorm: 427022 1 Tablet(s) PO Saturday and Saturday01/16/2018 01/15/2018 Inactive Vitamin D 2,000 unit Cap RxNorm: 1 Capsule(s) PO QD 01/30/201002/2010 Inactive Flexeril 5 mg tablet RxNorm: 228914 /2 to 1 Tablet(s) PO TID as needed for muscle spasm 06/10/2017 06/09/2017 Inactive Medrol (Isaiah) 4 mg Tabs in a Dose Pack RxNorm: 275397 Tablet(s) PO 0 09/04/2011 07/11/2011 Inactive as directed fenofibrate micronized 134 mg capsule RxNorm: 916182 1 Capsule( s) PO QD 06/03/2017 06/02/2017 Inactive Vitamin D2 50,000 unit capsule RxNorm: 388319 Capsule(s ) PO Take 1 capsule by mouth twice weekly 12/02/2013 12/01/2013 Inactive prednisone 20 mg tablet RxNorm: 603243 1 Tablet(s) PO BID 03/30/2014 03/29/2014 Inactive AttnRPh: Saving apply/adjudicate RxGRP:S G20 RxBIN:[id number] RxPCN:HT ID#:[id number]: Saving apply/adjudicate RxGRP:SG20 RxBIN:[id number] RxPCN:HT ID#:[id number] Soma 350 mg tablet RxNorm: 477249 1 Tablet(s) PO TID prn spasm 01/2310/08/2010 Inactive Lancets,Ultra Thin RxNorm: Miscellaneous Use to test blood sugar daily and as needed (Dx: E11.65) 02/28/2018 02/27/2018 Inactive pantoprazole 40 mg tablet,delayed release RxNorm: 343783 1 Tabl et(s) PO QD 08/21/2017 08/20/2017 Inactive Janumet XR 100 mg-1,000 mg tablet,extended release RxNorm: 1 617341 2 Tablet(s) PO QD 01/06/2014 01/05/2014 Inactive Contour Meter RxNorm: miscellaneous 02/27/2018 02/26/2018 Inactive Synthroid 200 mcg Tab RxNorm: 853182 1 Tablet(s) PO QD 11/24/200907/2009 Inactive Kombiglyze XR 5 mg-500 mg tablet,extended release RxNorm: 10 42749 1 Tablet(s) PO QD 05/07/2013 05/06/2013 Inactive Zithromax Z-Isaiah 250 mg tablet RxNorm: 570198 Tablet(s) PO as di rected 05/14/2013 05/13/2013 Inactive AttnRPh: Saving appl y/adjudicate RxGRP:SG20 RxBIN:[id number] RxPCN:HT ID#:[id number] Fish Oil 1,000 mg capsule RxNorm: 3 Capsule(s) PO QD 04/04/2017 Inactive Lasix Oral RxNorm: Oral 03/30/2014 03/29/2014 Inactive loratadine 10 mg tablet RxNorm: 613176 1 Tablet(s) PO QD 08/20/2017 0 08/19/2017 Inactive Vitamin D 5,000 unit Tab RxNorm: 1 Tablet(s) PO twice a week 1 08/07/2009 06/05/2010 Inactive permethrin 5 % Topical Cream RxNorm: 706382 TOP Use as directed 02/03/2013 Inactive Gabapentin 100 mg Tab RxNorm: 679863 1 Tablet(s) PO BID 04/12/2010 Inactive Voltaren 1 % topical gel RxNorm: 075050 TOP as needed 06/23/201805/26 Inactive Gabapentin 300 mg Cap RxNorm: 697898 1 Capsule(s) PO BID 07/12/2011 0 07/11/2011 Inactive Contour Test Strips RxNorm: Miscellaneous Test blood sug ar daily (Dx: E11.65) 02/28/2018 02/27/2018 Inactive Promethazine 25 mg Tab RxNorm: 156260 1 Tablet(s) PO Q6 -8H As needed for nausea and vomiting. 10/09/2010 10/08/2010 Inactive propranolol 20 mg tablet RxNorm: 369151 1 Tablet(s) PO BID 03/17/20 18 03/16/2018 Inactive Vitamin D 50,000 unit Cap RxNorm: 0525827 Capsule(s) PO 2 weekly 06/05/2010 Inactive Synthroid 175 mcg Tab RxNorm: 330476 1 Tablet(s) PO QD 07/12/2011 Inactive triamcinolone acetonide 0.1 % Ointment RxNorm: 6342541 T OP TID apply three times a day (sparingly) as needed for itching 04/04/2017 04/03/2017 Inactive Ultram 50 mg Tab RxNorm: 930924 1-2 Tablet(s) PO QID prn pain 03/2203/22/2011 Inactive Topamax 100 mg Tab RxNorm: 722503 1 Tablet(s) PO BID 10/04/200910/03 Inactive Vitamin D3 1000 units Capsule RxNorm: 3 Capsule(s) PO QD 0 06/05/2010 Inactive Singulair 10 mg tablet RxNorm: 503807 1 Tablet(s) PO QD 06/23/2018 Inactive Medication Administered No Medication Administered data Immunizations Vaccine Codes Dose Date Status Influenza CVX: 135 0.5 04/05/2022 Complete Influenza CVX: 135 0.5 03/29/2021 Complete Covid-19 CVX: 207 09/08/2020 Covid-19 CVX: 08/12/2020 Influenza CVX: 135 0.5 04/15/2019 Complete Influenza CVX: 135 0.5 04/15/2019 Complete Influenza CVX: 135 0.5 04/04/2017 Complete Pneumococcal CVX: 33 0.5 04/04/2017 Complete Influenza CVX: 135 0.5 05/01/2016 Complete Influenza CVX: 135 0.5 ml 03/28/2015 Pneumococcal CVX: 133 0.5 ml 02/08/2015 Results Observation Observation Code Item Item Code Result Date S ervice Location SARS-CoV2 2355502 SARS-CoV2 PCR Detected 07/08/2021 [facility] wn GFR CALC 1579365 GFR Non Afr Amr >60 mL/min 01/26/2019 Un known GFR CALC 7714638 GFR Afr Amr >60 mL/min 01/26/2019 Unknow n COMPLETE BLOOD COUNT 7608629 WBC 7.0 10e9/L 01/27/20 19 Unknown COMPLETE BLOOD COUNT 3981352 RBC 4.52 10e12/L 2018 Unknown COMPLETE BLOOD COUNT 2763188 HEMOGLOBIN 14.0 g/dL 01/27/20 19 Unknown COMPLETE BLOOD COUNT 3672316 HEMATOCRIT 42.6 % 01/27/20 19 Unknown COMPLETE BLOOD COUNT 4619190 MCV 94.2 fL 9 Unknown COMPLETE BLOOD COUNT 5192793 MCH 31.0 pg 9 Unknown COMPLETE BLOOD COUNT 8870003 MCHC 32.9 g/dL 9 Unknown COMPLETE BLOOD COUNT 4881936 PLATELET COUNT 272 10e9/L 10/2018 Unknown COMPLETE BLOOD COUNT 4401290 Mean Plt Volume 10.4 fL 10/2018 Unknown COMPLETE BLOOD COUNT 9358031 Neut Auto 53.9 % 9 Unknown COMPLETE BLOOD COUNT 6294631 Lymph Auto 33.8 % 01/27/20 19 Unknown COMPLETE BLOOD COUNT 9527497 [place] Auto 9.1 % 9 Unknown COMPLETE BLOOD COUNT 9797434 RDW 13.2 % 9 Unknown COMPLETE BLOOD COUNT 5255328 Eos Auto 2.3 % 9 Unknown COMPLETE BLOOD COUNT 7861212 Baso Auto 0.9 % 9 Unknown COMPLETE BLOOD COUNT 8569400 Neutrophil Abs 3.77 10e9/L Unknown COMPLETE BLOOD COUNT 1622364 Lymphocyte Abs 2.37 10e9/L Unknown COMPLETE BLOOD COUNT 1169940 Monocyte Abs 0.64 10e9/L 10/2018 Unknown COMPLETE BLOOD COUNT 1690265 Eosinophil Abs 0.16 10e9/L Unknown COMPLETE BLOOD COUNT 6623863 RDW-SD 44.2 fL 9 Unknown COMPLETE BLOOD COUNT 2553397 Basophil Abs 0.06 10e9/L 10/2018 Unknown COMPREHENSIVE METABOLIC 33762 AST 15 U/L 2018 Unknown COMPREHENSIVE METABOLIC 96351 ALT 18 U/L 2018 Unknown COMPREHENSIVE METABOLIC 05266 BUN 10 mg/dL 2018 Unknown COMPREHENSIVE METABOLIC 19752 ALBUMIN 4.1 g/dL 2018 Unknown COMPREHENSIVE METABOLIC 34799 CHLORIDE 100 mmol/L 01/26 Unknown COMPREHENSIVE METABOLIC 92981 Bili Total 0.4 mg/dL 01/26 Unknown COMPREHENSIVE METABOLIC 54594 ALK PHOS 57 U/L 2018 Unknown COMPREHENSIVE METABOLIC 12221 SODIUM 136 mmol/L 01/26 Unknown COMPREHENSIVE METABOLIC 61850 CREATININE 0.71 mg/dL 10/2018 Unknown COMPREHENSIVE METABOLIC 34891 CALCIUM 9.3 mg/dL 2018 Unknown COMPREHENSIVE METABOLIC 57294 POTASSIUM 4.4 mmol/L 01/26 Unknown COMPREHENSIVE METABOLIC 63768 Total Protein 6.7 g/dL Unknown COMPREHENSIVE METABOLIC 29268 Glucose 88 mg/dL 2018 Unknown COMPREHENSIVE METABOLIC 43014 Bicarbonate 27 mmol/L 10/2018 Unknown COMPREHENSIVE METABOLIC 72209 AGAP 9 mmol/L 2018 Unknown Procedures Procedure Codes Date URINALYSIS NONAUTO W/O SCOPE CPT-4: 46745 09/10/2022 URINALYSIS NONAUTO W/O SCOPE CPT-4: 82765 09/05/2022 RML URINE CULTURE/ COLONY COUNT CPT-4: 49634 09/06/19 23 RML URINE CULTURE/ COLONY COUNT CPT-4: 34578 06/29/19 23 THER/PROPH/DIAG INJ SC/IM CPT-4: 52049 04/18/2022 KETOROLAC TROMETHAMINE INJ CPT-4: J1885 04/18/2022 FLU 65 + VACC AIIV4 NO PRSRV 0.5ML IM CPT-4: 67595 ADMIN INFLUENZA VIRUS VAC CPT-4: G0008 04/05/2022 PPPS, subseq visit CPT-4: G0439 02/06/2022 DEXAMETHASONE SODIUM PHOS CPT-4: J1100 11/09/2021 THER/PROPH/DIAG INJ SC/IM CPT-4: 24163 11/09/2021 TRIAMCINOLONE ACET INJ NOS CPT-4: J3301 11/09/2021 CEFTRIAXONE SODIUM INJECTION CPT-4: J0696 10/30/2021 THER/PROPH/DIAG INJ SC/IM CPT-4: 57174 10/30/2021 INFLUENZA ASSAY W/OPTIC CPT-4: 03986 10/30/2021 THER/PROPH/DIAG INJ SC/IM CPT-4: 71517 09/05/2021 TRIAMCINOLONE ACET INJ NOS CPT-4: J3301 09/05/2021 INFLUENZA ASSAY W/OPTIC CPT-4: 37524 07/04/2021 SARS-CoV2 CPT-4: 1000538 07/04/2021 FLU VACC PRSV FREE INC ANTIG 65 AND OLDER CPT-4: 53696 03/29/2021 FLU VACC PRSV FREE INC ANTIG 65 AND OLDER CPT-4: 81920 03/29/2021 ADMIN INFLUENZA VIRUS VAC CPT-4: G0008 03/29/2021 DRAINAGE OF SKIN ABSCESS CPT-4: 65127 02/08/2021 PPPS, subseq visit CPT-4: G0439 01/03/2021 OCCULT BLOOD FECES CPT-4: 64969 07/13/2020 RML URINE CULTURE/ COLONY COUNT CPT-4: 66083 05/17/20 URINALYSIS NONAUTO W/O SCOPE CPT-4: 00016 05/17/2020 CEFTRIAXONE SODIUM INJECTION CPT-4: J0696 03/07/2020 THER/PROPH/DIAG INJ SC/IM CPT-4: 65402 03/07/2020 THER/PROPH/DIAG INJ SC/IM CPT-4: 31168 03/07/2020 METHYLPREDNISOLONE INJECTION CPT-4: J2930 03/07/2020 PPPS, subseq visit CPT-4: G0439 12/21/2019 RML URINE CULTURE/ COLONY COUNT CPT-4: 11292 09/11/19 20 CEFTRIAXONE SODIUM INJECTION CPT-4: J0696 09/08/2019 THER/PROPH/DIAG INJ SC/IM CPT-4: 88000 09/08/2019 THER/PROPH/DIAG INJ SC/IM CPT-4: 94502 09/07/2019 CEFTRIAXONE SODIUM INJECTION CPT-4: J0696 09/07/2019 THER/PROPH/DIAG INJ SC/IM CPT-4: 43711 09/07/2019 URINALYSIS NONAUTO W/O SCOPE CPT-4: 82649 09/02/2019 RML URINE CULTURE/ COLONY COUNT CPT-4: 69926 09/02/19 20 FLU VACC PRSV FREE INC ANTIG 65 AND OLDER CPT-4: 68385 04/15/2019 URINALYSIS NONAUTO W/O SCOPE CPT-4: 59930 04/15/2019 RML URINE CULTURE/ COLONY COUNT CPT-4: 32403 04/15/20 19 ADMIN INFLUENZA VIRUS VAC CPT-4: G0008 04/15/2019 FLU VACC PRSV FREE INC ANTIG 65 AND OLDER CPT-4: 94264 04/15/2019 THER/PROPH/DIAG INJ SC/IM CPT-4: 55324 04/07/2019 TRIAMCINOLONE ACET INJ NOS CPT-4: J3301 04/07/2019 DEXAMETHASONE SODIUM PHOS CPT-4: J1100 04/07/2019 URINALYSIS NONAUTO W/O SCOPE CPT-4: 52404 03/18/2019 RML URINE CULTURE/ COLONY COUNT CPT-4: 79097 03/18/20 19 ROUTINE VENIPUNCTURE CPT-4: 73948 01/26/2019 RML COMPREHEN METABOLIC PANEL CPT-4: 18886 01/26/2019 RML COMPLETE CBC W/AUTO DIFF WBC CPT-4: 78070 019 RML URINE CULTURE/ COLONY COUNT CPT-4: 91490 01/27/20 19 URINALYSIS NONAUTO W/O SCOPE CPT-4: 13683 01/26/2019 THER/PROPH/DIAG INJ SC/IM CPT-4: 50998 01/08/2019 TRIAMCINOLONE ACET INJ NOS CPT-4: J3301 01/08/2019 THER/PROPH/DIAG INJ SC/IM CPT-4: 22094 01/06/2019 METHYLPREDNISOLONE INJECTION CPT-4: J2930 01/06/2019 AIRWAY INHALATION TREATMENT CPT-4: 29206 01/06/2019 RML URINE CULTURE/ COLONY COUNT CPT-4: 07430 01/07/20 19 PPPS, subseq visit CPT-4: G0439 12/11/2018 URINALYSIS NONAUTO W/O SCOPE CPT-4: 21564 12/11/2018 RML URINE CULTURE/ COLONY COUNT CPT-4: 19821 12/12/19 19 CULTURE OTHR SPECIMN AEROBIC CPT-4: 00840 12/11/2018 OCCULT BLOOD FECES CPT-4: 86590 12/11/2018 THER/PROPH/DIAG INJ SC/IM CPT-4: 34340 10/07/2018 TRIAMCINOLONE ACET INJ NOS CPT-4: J3301 10/07/2018 DEXAMETHASONE SODIUM PHOS CPT-4: J1100 10/07/2018 THER/PROPH/DIAG INJ SC/IM CPT-4: 67203 10/16/2017 TRIAMCINOLONE ACET INJ NOS CPT-4: J3301 10/16/2017 THER/PROPH/DIAG INJ SC/IM CPT-4: 03431 10/16/2017 KETOROLAC TROMETHAMINE INJ CPT-4: J1885 10/16/2017 INFLUENZA ASSAY W/OPTIC CPT-4: 93309 07/25/2017 FLU VACC PRSV FREE INC ANTIG 65 AND OLDER CPT-4: 45972 04/04/2017 PNEUMOCOCCAL VACC 23 DANAY IM CPT-4: 44811 04/04/2017 PPPS, subseq visit CPT-4: G0439 04/04/2017 ADMIN INFLUENZA VIRUS VAC CPT-4: G0008 04/04/2017 ADMIN PNEUMOCOCCAL VACCINE CPT-4: G0009 04/04/2017 URINALYSIS NONAUTO W/O SCOPE CPT-4: 62646 06/05/2016 FLU VACC PRSV FREE INC ANTIG 65 AND OLDER CPT-4: 84054 05/01/2016 ADMIN INFLUENZA VIRUS VAC CPT-4: G0008 05/01/2016 URINALYSIS NONAUTO W/O SCOPE CPT-4: 05661 11/08/2015 URINALYSIS NONAUTO W/O SCOPE CPT-4: 36321 03/28/2015 ADMIN INFLUENZA VIRUS VAC CPT-4: G0008 03/28/2015 FLU VACC PRSV FREE INC ANTIG 65 AND OLDER CPT-4: 04151 03/28/2015 PRESCRIP TRANSMIT VIA ERX SY CPT-4: G8553 03/28/2015 PNEUMOCOCCAL VACC 13 DANAY IM CPT-4: 20799 02/08/2015 ADMIN PNEUMOCOCCAL VACCINE CPT-4: G0009 02/08/2015 PRESCRIP TRANSMIT VIA ERX SY CPT-4: G8553 02/08/2015 RML URINE CULTURE/ COLONY COUNT CPT-4: 14554 01/12/20 15 URINALYSIS NONAUTO W/O SCOPE CPT-4: 20686 01/11/2015 PRESCRIP TRANSMIT VIA ERX SY CPT-4: G8553 01/11/2015 PRESCRIP TRANSMIT VIA ERX SY CPT-4: G8553 11/24/2014 URINALYSIS NONAUTO W/O SCOPE CPT-4: 93769 10/27/2014 RML URINE CULTURE/ COLONY COUNT CPT-4: 92459 10/28/19 15 PRESCRIP TRANSMIT VIA ERX SY CPT-4: G8553 10/27/2014 CEFTRIAXONE SODIUM INJECTION CPT-4: J0696 09/23/2014 THER/PROPH/DIAG INJ SC/IM CPT-4: 23565 09/23/2014 URINALYSIS NONAUTO W/O SCOPE CPT-4: 96281 09/23/2014 RML URINE CULTURE/ COLONY COUNT CPT-4: 38004 09/24/19 15 PRESCRIP TRANSMIT VIA ERX SY CPT-4: G8553 09/23/2014 URINALYSIS NONAUTO W/O SCOPE CPT-4: 04437 03/30/2014 RML URINE CULTURE/ COLONY COUNT CPT-4: 08352 03/30/20 14 PRESCRIP TRANSMIT VIA ERX SY CPT-4: G8553 03/30/2014 PRESCRIP TRANSMIT VIA ERX SY CPT-4: G8553 11/24/2013 PRESCRIP TRANSMIT VIA ERX SY CPT-4: G8553 06/29/2013 PRESCRIP TRANSMIT VIA ERX SY CPT-4: G8553 05/26/2013 PRESCRIP TRANSMIT VIA ERX SY CPT-4: G8553 04/23/2013 THER/PROPH/DIAG INJ SC/IM CPT-4: 43386 03/05/2013 KETOROLAC TROMETHAMINE INJ CPT-4: J1885 03/05/2013 PRESCRIP TRANSMIT VIA ERX SY CPT-4: G8553 11/27/2012 PRESCRIP TRANSMIT VIA ERX SY CPT-4: G8553 11/11/2012 PRESCRIP TRANSMIT VIA ERX SY CPT-4: G8553 09/03/2012 PRESCRIP TRANSMIT VIA ERX SY CPT-4: G8553 07/23/2012 PRESCRIP TRANSMIT VIA ERX SY CPT-4: G8553 05/20/2012 PRESCRIP TRANSMIT VIA ERX SY CPT-4: G8553 04/04/2012 DESTRUCT PREMALG LESION (Cryosurgery) CPT-4: 51370 PRESCRIP TRANSMIT VIA ERX SY CPT-4: G8553 01/02/2012 PRESCRIP TRANSMIT VIA ERX SY CPT-4: G8553 09/04/2011 URINALYSIS NONAUTO W/O SCOPE CPT-4: 76488 07/31/2011 PRESCRIP TRANSMIT VIA ERX SY CPT-4: G8553 07/12/2011 PRESCRIP TRANSMIT VIA ERX SY CPT-4: G8553 05/09/2011 THER/PROPH/DIAG INJ SC/IM CPT-4: 69271 05/02/2011 KETOROLAC TROMETHAMINE INJ CPT-4: J1885 05/02/2011 PRESCRIP TRANSMIT VIA ERX SY CPT-4: G8553 04/25/2011 CUR TOBACCO NON-USER CPT-4: G8457 04/04/2011 PRESCRIP TRANSMIT VIA ERX SY CPT-4: G8553 04/04/2011 DRAIN/INJECT JOINT/BURSA CPT-4: 80099 03/01/2011 METHYLPREDNISOLONE 40 MG INJ CPT-4: J1030 03/01/2011 TRIAMCINOLONE ACET INJ NOS CPT-4: J3301 03/01/2011 DRAIN/INJECT JOINT/BURSA CPT-4: 53518 01/04/2011 METHYLPREDNISOLONE 40 MG INJ CPT-4: J1030 01/04/2011 TRIAMCINOLONE ACET INJ NOS CPT-4: J3301 01/04/2011 PRESCRIP TRANSMIT VIA ERX SY CPT-4: G8553 12/07/2010 PRESCRIP TRANSMIT VIA ERX SY CPT-4: G8553 10/09/2010 PRESCRIP TRANSMIT VIA ERX SY CPT-4: G8553 06/06/2010 DRAIN/INJECT JOINT/BURSA CPT-4: 51462 04/12/2010 TRIAMCINOLONE ACET INJ NOS CPT-4: J3301 04/12/2010 METHYLPREDNISOLONE 80 MG INJ CPT-4: J1040 04/12/2010 PRESCRIP TRANSMIT VIA ERX SY CPT-4: G8553 03/20/2010 THER/PROPH/DIAG INJ SC/IM CPT-4: 69046 01/30/2010 KETOROLAC TROMETHAMINE INJ CPT-4: J1885 01/30/2010 PRESCRIP TRANSMIT VIA ERX SY CPT-4: G8553 01/30/2010 DRAIN/INJECT JOINT/BURSA CPT-4: 45734 10/26/2009 TRIAMCINOLONE ACET INJ NOS CPT-4: J3301 10/26/2009 METHYLPREDNISOLONE 80 MG INJ CPT-4: J1040 10/26/2009 DRAINAGE OF SKIN ABSCESS CPT-4: 83381 10/04/2009 Vital Signs Date Vital 09/10/2022 Blood Pressure 1: 132/78 Code: 8480-6 Heart Rate 1: 74 bpm Respiratory Rate: 18 bpm SpO2: 95% Temperature: 36.2 (C) / 97.1 (F) We ight: 220 lbs Code: 09979-2 09/05/2022 Blood Pressure 1: 124/78 Code: 8480-6 Heart Rate 1: 65 bpm Respiratory Rate: 20 bpm SpO2: 97% Temperature: 36.7 (C) / 98.0 (F) We ight: 224 lbs Code: 50128-2 08/30/2022 Blood Pressure 1: 124/74 Code: 8480-6 Heart Rate 1: 74 bpm Respiratory Rate: 20 bpm SpO2: 96% Temperature: 36.3 (C) / 97.3 (F) We ight: 224 lbs Code: 41388-8 08/07/2022 Blood Pressure 1: 126/74 Code: 8480-6 Heart Rate 1: 73 bpm Respiratory Rate: 20 bpm SpO2: 97% Temperature: 36.2 (C) / 97.1 (F) We ight: 222 lbs Code: 27051-9 06/29/2022 Blood Pressure 1: 132/73 Code: 8480-6 BMI: 36.7 Code: 06199-7 Heart Rate 1: 74 bpm Height: 5'6" Code: 8302-2 SpO2: 96% Temperature: 3 6.4 (C) / 97.6 (F) Weight: 226 lbs Code: 46213-9 05/28/2022 Blood Pressure 1: 129/78 Code: 8480-6 BMI: 37.7 Code: 26016-2 Heart Rate 1: 72 bpm Height: 5'6" Code: 8302-2 SpO2: 95% Temperature: 3 6.2 (C) / 97.1 (F) Weight: 232 lbs Code: 69464-1 05/10/2022 Blood Pressure 1: 133/75 Code: 8480-6 BMI: 38.3 Code: 23848-2 Heart Rate 1: 68 bpm Height: 5'6" Code: 8302-2 SpO2: 98% Temperature: 3 6.2 (C) / 97.1 (F) Weight: 236 lbs Code: 98892-3 04/18/2022 Blood Pressure 1: 118/70 Code: 8480-6 Heart Rate 1: 86 bpm Respiratory Rate: 20 bpm SpO2: 96% Temperature: 36.6 (C) / 97.8 (F) We ight: 238 lbs Code: 73616-4 02/15/2022 Blood Pressure 1: 120/82 Code: 8480-6 Heart Rate 1: 88 bpm Respiratory Rate: 20 bpm SpO2: 98% Temperature: 36.1 (C) / 97.0 (F) We ight: 237 lbs Code: 48623-1 02/06/2022 Blood Pressure 1: 124/80 Code: 8480-6 BMI: 39.4 Code: 59498-6 Heart Rate 1: 76 bpm Height: 5'6" Code: 8302-2 Respiratory Rate: 20 bpm SpO2: 98% Temperature: 36.6 (C) / 97.9 (F) Weight: 242 lbs Code: 14153-1 02/01/2022 Blood Pressure 1: 144/100 Code: 8480-6 Heart Rat e 1: 108 bpm Respiratory Rate: 22 bpm SpO2: 96% Temperature: 36.4 (C) / 97.5 (F) 11/29/2021 Blood Pressure 1: 128/80 Code: 8480-6 Heart Rate 1: 56 bpm Respiratory Rate: 20 bpm SpO2: 97% Temperature: 36.7 (C) / 98.1 (F) We ight: 242 lbs Code: 62435-6 11/22/2021 Blood Pressure 1: 118/80 Code: 8480-6 Heart Rate 1: 84 bpm Respiratory Rate: 20 bpm SpO2: 99% Temperature: 36.3 (C) / 97.4 (F) 11/21/2021 Blood Pressure 1: 132/80 Code: 8480-6 Heart Rate 1: 98 bpm Respiratory Rate: 20 bpm SpO2: 99% Weight: 238 lbs Code: 59642 -7 11/09/2021 Blood Pressure 1: 136/86 Code: 8480-6 Heart Rate 1: 68 bpm Respiratory Rate: 20 bpm SpO2: 95% Temperature: 36.4 (C) / 97.5 (F) We ight: 244 lbs Code: 98861-2 10/31/2021 Blood Pressure 1: 128/80 Code: 8480-6 Heart Rate 1: 80 bpm Respiratory Rate: 28 bpm SpO2: 93% Temperature: 38.0 (C) / 100. 4 (F) 10/30/2021 Blood Pressure 1: 136/82 Code: 8480-6 Heart Rate 1: 120 bpm Respiratory Rate: 24 bpm SpO2: 95% Temperature: 38.0 (C) / 100. 4 (F) 09/05/2021 Blood Pressure 1: 118/84 Code: 8480-6 BMI: 38.5 Code: 77348-3 Heart Rate 1: 72 bpm Height: 5'7" Code: 8302-2 Respiratory Rate: 20 bpm SpO2: 95% Temperature: 36.3 (C) / 97.4 (F) Weight: 246 lbs Code: 56678-7 08/24/2021 Blood Pressure 1: 132/84 Code: 8480-6 Heart Rate 1: 76 bpm Respiratory Rate: 19 bpm SpO2: 98% Temperature: 36.7 (C) / 98.1 (F) We ight: Code: 50747-0 03/01/2021 Blood Pressure 1: 90/52 Code: 8480-6 Heart Rate 1: 66 bpm Respiratory Rate: 22 bpm SpO2: 97% 02/08/2021 Blood Pressure 1: 132/75 Code: 8480-6 Heart Rate 1: 74 bpm Respiratory Rate: 18 bpm SpO2: 98% Temperature: 36.3 (C) / 97.3 (F) We ight: 247 lbs Code: 35788-4 01/19/2021 Blood Pressure 1: 126/76 Code: 8480-6 Heart Rate 1: 76 bpm Respiratory Rate: 20 bpm SpO2: 98% Temperature: 37.1 (C) / 98.8 (F) We ight: 244 lbs Code: 13593-8 01/03/2021 Blood Pressure 1: 124/64 Code: 8480-6 BMI: 38.5 Code: 83410-3 Heart Rate 1: 76 bpm Height: 5'7" Code: 8302-2 Respiratory Rate: 20 bpm SpO2: 96% Temperature: 36.4 (C) / 97.6 (F) Weight: 246 lbs Code: 59282-0 11/29/2020 Blood Pressure 1: 119/68 Code: 8480-6 Heart Rate 1: 73 bpm Respiratory Rate: 20 bpm SpO2: 95% Temperature: 36.1 (C) / 96.9 (F) We ight: 245 lbs Code: 72555-9 09/29/2020 Blood Pressure 1: 136/79 Code: 8480-6 Heart Rate 1: 67 bpm Respiratory Rate: 15 bpm SpO2: 98% Temperature: 36.2 (C) / 97.1 (F) We ight: 237 lbs Code: 11376-7 09/19/2020 Blood Pressure 1: 135/82 Code: 8480-6 Heart Rate 1: 76 bpm Respiratory Rate: 17 bpm SpO2: 96% Temperature: 36.6 (C) / 97.8 (F) We ight: 238 lbs Code: 39727-7 08/10/2020 Blood Pressure 1: 126/82 Code: 8480-6 Heart Rate 1: 60 bpm Respiratory Rate: 20 bpm SpO2: 96% Temperature: 36.3 (C) / 97.3 (F) We ight: 238 lbs Code: 34509-4 08/01/2020 Temperature: 36.6 (C) / 97.8 (F) 07/13/2020 Blood Pressure 1: 132/80 Code: 8480-6 Heart Rate 1: 76 bpm Respiratory Rate: 20 bpm SpO2: 97% Temperature: 36.2 (C) / 97.2 (F) We ight: 228 lbs Code: 64634-3 07/05/2020 Temperature: 35.9 (C) / 96.7 (F) 06/22/2020 Blood Pressure 1: 134/82 Code: 8480-6 Heart Rate 1: 60 bpm Respiratory Rate: 20 bpm SpO2: 96% Temperature: 36.4 (C) / 97.6 (F) We ight: 235 lbs Code: 56378-8 05/17/2020 Blood Pressure 1: 141/72 Code: 8480-6 Heart Rate 1: 78 bpm Respiratory Rate: 16 bpm SpO2: 98% Temperature: 36.3 (C) / 97.3 (F) We ight: 232 lbs Code: 73358-6 03/14/2020 Blood Pressure 1: 126/92 Code: 8480-6 Heart Rate 1: 72 bpm Respiratory Rate: 22 bpm SpO2: 96% Temperature: 36.3 (C) / 97.4 (F) We ight: 225 lbs Code: 25176-2 03/07/2020 Blood Pressure 1: 124/86 Code: 8480-6 Heart Rate 1: 72 bpm Respiratory Rate: 24 bpm SpO2: 93% Temperature: 36.2 (C) / 97.1 (F) We ight: 227 lbs Code: 36718-1 12/21/2019 Blood Pressure 1: 114/72 Code: 8480-6 BMI: 36.2 Code: 94340-2 Heart Rate 1: 60 bpm Height: 5'7" Code: 8302-2 Respiratory Rate: 20 bpm SpO2: 97% Temperature: 36.7 (C) / 98.1 (F) Weight: 231 lbs Code: 42401-8 09/02/2019 Blood Pressure 1: 138/85 Code: 8480-6 Heart Rate 1: 76 bpm Respiratory Rate: 20 bpm SpO2: 96% Temperature: 36.3 (C) / 97.3 (F) We ight: 226 lbs Code: 37855-5 07/09/2019 Blood Pressure 1: 123/63 Code: 8480-6 BMI: 34.9 Code: 15949-1 Heart Rate 1: 64 bpm Height: 5'7" Code: 8302-2 Respiratory Rate: 17 bpm SpO2: 97% Temperature: 37.0 (C) / 98.6 (F) Weight: 223 lbs Code: 85837-9 04/15/2019 Blood Pressure 1: 110/82 Code: 8480-6 Heart Rate 1: 66 bpm SpO2: 98% Temperature: 36.1 (C) / 96.9 (F) Weight: 223 lbs Code: 66147-1 04/07/2019 Blood Pressure 1: 132/80 Code: 8480-6 Heart Rate 1: 68 bpm Temperature: 36.9 (C) / 98.4 (F) Weight: 222 lbs Code: 30961-8 03/25/2019 Blood Pressure 1: 108/70 Code: 8480-6 Heart Rate 1: 64 bpm Respiratory Rate: 20 bpm SpO2: 96% Temperature: 36.2 (C) / 97.2 (F) We ight: 221 lbs Code: 17269-8 03/18/2019 Blood Pressure 1: 138/82 Code: 8480-6 Heart Rate 1: 74 bpm SpO2: 99% Temperature: 36.1 (C) / 96.9 (F) Weight: 223 lbs Code: 47956-6 01/26/2019 Blood Pressure 1: 138/90 Code: 8480-6 Heart Rate 1: 68 bpm SpO2: 96% Temperature: 35.9 (C) / 96.7 (F) Weight: 227 lbs Code: 60883-6 01/08/2019 Blood Pressure 1: 134/78 Code: 8480-6 BMI: 36.8 Code: 69973-5 Heart Rate 1: 76 bpm Height: 5'7" Code: 8302-2 SpO2: 93% Temperature: 3 6.4 (C) / 97.6 (F) Weight: 235 lbs Code: 50206-4 01/06/2019 Blood Pressure 1: 116/80 Code: 8480-6 Heart Rate 1: 72 bpm Respiratory Rate: 20 bpm SpO2: 98% Temperature: 36.5 (C) / 97.7 (F) We ight: 232 lbs Code: 81130-5 12/11/2018 Blood Pressure 1: 120/82 Code: 8480-6 BMI: 36.2 Code: 17943-2 Heart Rate 1: 67 bpm Height: 5'7" Code: 8302-2 Respiratory Rate: 18 bpm SpO2: 96% Temperature: 35.9 (C) / 96.7 (F) Weight: 231 lbs Code: 92862-2 10/30/2018 Blood Pressure 1: 126/82 Code: 8480-6 Heart Rate 1: 80 bpm Respiratory Rate: 20 bpm SpO2: 96% Temperature: 36.8 (C) / 98.3 (F) We ight: 228 lbs Code: 60704-7 10/07/2018 Blood Pressure 1: 130/90 Code: 8480-6 Heart Rate 1: 76 bpm Respiratory Rate: 24 bpm SpO2: 97% Temperature: 36.0 (C) / 96.8 (F) We ight: 229 lbs Code: 07714-9 06/23/2018 Blood Pressure 1: 132/80 Code: 8480-6 Heart Rate 1: 72 bpm Respiratory Rate: 20 bpm SpO2: 98% Temperature: 36.7 (C) / 98.0 (F) We ight: 233 lbs Code: 34367-0 01/16/2018 Blood Pressure 1: 116/82 Code: 8480-6 Heart Rate 1: 72 bpm Respiratory Rate: 20 bpm SpO2: 96% Temperature: 36.9 (C) / 98.5 (F) We ight: 230 lbs Code: 74297-5 10/16/2017 Blood Pressure 1: 116/74 Code: 8480-6 BMI: 35.1 Code: 95194-9 Heart Rate 1: 76 bpm Height: 5'7" Code: 8302-2 Respiratory Rate: 20 bpm SpO2: 98% Temperature: 36.7 (C) / 98.1 (F) Weight: 224 lbs Code: 97890-6 09/12/2017 Blood Pressure 1: 124/78 Code: 8480-6 BMI: 34.6 Code: 31241-1 Heart Rate 1: 84 bpm Height: 5'7" Code: 8302-2 Respiratory Rate: 20 bpm SpO2: 95% Temperature: 36.6 (C) / 97.8 (F) Weight: 221 lbs Code: 64834-6 08/20/2017 Blood Pressure 1: 126/78 Code: 8480-6 Heart Rate 1: 92 bpm Height: 5'7" Code: 8302-2 Respiratory Rate: 20 bpm SpO2: 96% Temperature: 36 .9 (C) / 98.5 (F) 08/13/2017 Blood Pressure 1: 124/80 Code: 8480-6 BMI: 34.8 Code: 10582-9 Heart Rate 1: 80 bpm Height: 5'7" Code: 8302-2 Respiratory Rate: 20 bpm SpO2: 96% Temperature: 36.7 (C) / 98.0 (F) Weight: 222 lbs Code: 53819-6 07/29/2017 Blood Pressure 1: 114/70 Code: 8480-6 BMI: 34.5 Code: 99736-1 Heart Rate 1: 76 bpm Height: 5'7" Code: 8302-2 Respiratory Rate: 20 bpm SpO2: 97% Temperature: 36.9 (C) / 98.4 (F) Weight: 220 lbs Code: 99908-0 07/25/2017 Blood Pressure 1: 142/76 Code: 8480-6 BMI: 34.9 Code: 51003-3 Heart Rate 1: 92 bpm Height: 5'7" Code: 8302-2 Respiratory Rate: 18 bpm SpO2: 96% Temperature: 36.7 (C) / 98.1 (F) Weight: 223 lbs Code: 48602-3 06/10/2017 Blood Pressure 1: 136/82 Code: 8480-6 BMI: 34.3 Code: 16983-6 Heart Rate 1: 68 bpm Height: 5'7" Code: 8302-2 Respiratory Rate: 20 bpm SpO2: 96% Temperature: 36.7 (C) / 98.0 (F) Weight: 219 lbs Code: 47172-0 05/28/2017 Blood Pressure 1: 136/70 Code: 8480-6 BMI: 34.1 Code: 78625-9 Heart Rate 1: 84 bpm Height: 5'7" Code: 8302-2 Respiratory Rate: 20 bpm SpO2: 95% Temperature: 35.9 (C) / 96.6 (F) Weight: 218 lbs Code: 94169-0 04/04/2017 Blood Pressure 1: 122/78 Code: 8480-6 BMI: 33.4 Code: 79636-3 Heart Rate 1: 68 bpm Height: 5'7" Code: 8302-2 Respiratory Rate: 20 bpm SpO2: 96% Temperature: 36.7 (C) / 98.0 (F) Weight: 213 lbs Code: 11196-1 11/28/2016 Blood Pressure 1: 114/82 Code: 8480-6 BMI: 33.7 Code: 21408-9 Heart Rate 1: 72 bpm Height: 5'7" Code: 8302-2 Respiratory Rate: 20 bpm SpO2: 98% Temperature: 36.4 (C) / 97.6 (F) Weight: 215 lbs Code: 59404-2 06/05/2016 Blood Pressure 1: 104/68 Code: 8480-6 BMI: 33.7 Code: 25273-3 Heart Rate 1: 68 bpm Height: 5'7" Code: 8302-2 Respiratory Rate: 20 bpm SpO2: 96% Temperature: 36.8 (C) / 98.2 (F) Weight: 215 lbs Code: 31935-0 11/08/2015 Blood Pressure 1: 122/70 Code: 8480-6 BMI: 33.8 Code: 10765-9 Heart Rate 1: 80 bpm Height: 5'7" Code: 8302-2 Respiratory Rate: 20 bpm Temperatu re: 36.8 (C) / 98.2 (F) Weight: 216 lbs Code: 18690-2 07/19/2015 Blood Pressure 1: 122/70 Code: 8480-6 BMI: 33.0 Code: 82097-1 Heart Rate 1: 80 bpm Height: 5'7" Code: 8302-2 Respiratory Rate: 18 bpm Temperatu re: 35.9 (C) / 96.6 (F) Weight: 211 lbs Code: 45274-5 03/28/2015 Blood Pressure 1: 124/70 Code: 8480-6 BMI: 31.8 Code: 98180-3 Heart Rate 1: 72 bpm Height: 5'7" Code: 8302-2 Respiratory Rate: 20 bpm Temperatu re: 36.8 (C) / 98.2 (F) Weight: 203 lbs Code: 04129-1 02/08/2015 Blood Pressure 1: 98/58 Code: 8480-6 BMI: 32.1 C ode: 90498-2 Heart Rate 1: 84 bpm Height: 5'7" Code: 8302-2 Respiratory Rate: 20 bpm Temperatu re: 36.7 (C) / 98.0 (F) Weight: 205 lbs Code: 80619-1 01/11/2015 Blood Pressure 1: 118/78 Code: 8480-6 BMI: 32.1 Code: 18065-5 Heart Rate 1: 84 bpm Height: 5'7" Code: 8302-2 Respiratory Rate: 20 bpm Temperatu re: 36.6 (C) / 97.9 (F) Weight: 205 lbs Code: 28485-6 11/24/2014 Blood Pressure 1: 124/80 Code: 8480-6 BMI: 32.0 Code: 50276-2 Heart Rate 1: 76 bpm Height: 5'7" Code: 8302-2 Respiratory Rate: 20 bpm Temperatu re: 36.2 (C) / 97.1 (F) Weight: 204 lbs Code: 01456-4 11/19/2014 Blood Pressure 1: 132/78 Code: 8480-6 BMI: 32.7 Code: 10261-3 Heart Rate 1: 68 bpm Height: 5'7" Code: 8302-2 Respiratory Rate: 20 bpm SpO2: 98% Temperature: 36.7 (C) / 98.0 (F) Weight: 209 lbs Code: 80699-4 10/27/2014 Blood Pressure 1: 118/76 Code: 8480-6 BMI: 32.6 Code: 22093-6 Heart Rate 1: 64 bpm Height: 5'7" Code: 8302-2 Respiratory Rate: 20 bpm Temperatu re: 36.7 (C) / 98.0 (F) Weight: 208 lbs Code: 16998-2 09/23/2014 Blood Pressure 1: 118/68 Code: 8480-6 BMI: 34.3 Code: 73172-5 Heart Rate 1: 78 bpm Height: 5'7" Code: 8302-2 Respiratory Rate: 22 bpm Temperatu re: 36.4 (C) / 97.6 (F) Weight: 219 lbs Code: 74025-5 07/28/2014 Blood Pressure 1: 126/80 Code: 8480-6 BMI: 33.5 Code: 41226-2 Heart Rate 1: 76 bpm Height: 5'7" Code: 8302-2 Respiratory Rate: 20 bpm Temperatu re: 36.4 (C) / 97.6 (F) Weight: 214 lbs Code: 53639-8 03/30/2014 Blood Pressure 1: 128/80 Code: 8480-6 BMI: 35.2 Code: 77897-6 Heart Rate 1: 88 bpm Height: 5'7" Code: 8302-2 Respiratory Rate: 20 bpm Temperatu re: 36.4 (C) / 97.6 (F) Weight: 225 lbs Code: 33124-4 11/24/2013 Blood Pressure 1: 124/82 Code: 8480-6 BMI: 35.6 Code: 97234-6 Heart Rate 1: 80 bpm Height: 5'7" Code: 8302-2 Respiratory Rate: 22 bpm Temperatu re: 36.2 (C) / 97.1 (F) Weight: 227 lbs Code: 71594-8 08/25/2013 Blood Pressure 1: 128/80 Code: 8480-6 BMI: 37.4 Code: 70139-8 Heart Rate 1: 76 bpm Height: 5'7" Code: 8302-2 Respiratory Rate: 20 bpm Temperatu re: 36.6 (C) / 97.9 (F) Weight: 239 lbs Code: 31915-7 06/29/2013 Blood Pressure 1: 106/78 Code: 8480-6 BMI: 38.1 Code: 05961-7 Heart Rate 1: 80 bpm Height: 5'7" Code: 8302-2 Respiratory Rate: 20 bpm Temperatu re: 36.6 (C) / 97.9 (F) Weight: 243 lbs Code: 80213-3 05/26/2013 Blood Pressure 1: 122/80 Code: 8480-6 BMI: 39.3 Code: 59320-3 Heart Rate 1: 80 bpm Height: 5'7" Code: 8302-2 Respiratory Rate: 20 bpm Temperatu re: 36.9 (C) / 98.4 (F) Weight: 251 lbs Code: 29145-6 05/06/2013 Blood Pressure 1: 128/78 Code: 8480-6 BMI: 39.2 Code: 79943-7 Heart Rate 1: 76 bpm Height: 5'7" Code: 8302-2 Respiratory Rate: 22 bpm Temperatu re: 35.8 (C) / 96.4 (F) Weight: 250 lbs Code: 86437-3 04/23/2013 Blood Pressure 1: 132/92 Code: 8480-6 BMI: 39.6 Code: 54430-9 Heart Rate 1: 88 bpm Height: 5'7" Code: 8302-2 Respiratory Rate: 28 bpm SpO2: 97% Temperature: 36.5 (C) / 97.7 (F) Weight: 253 lbs Code: 64843-6 03/31/2013 Blood Pressure 1: 122/80 Code: 8480-6 BMI: 39.0 Code: 45938-3 Heart Rate 1: 84 bpm Height: 5'7" Code: 8302-2 Respiratory Rate: 20 bpm Temperatu re: 36.6 (C) / 97.8 (F) Weight: 249 lbs Code: 15255-6 03/05/2013 Blood Pressure 1: 120/80 Code: 8480-6 BMI: 39.2 Code: 19825-9 Heart Rate 1: 60 bpm Height: 5'7" Code: 8302-2 Respiratory Rate: 22 bpm Temperatu re: 35.9 (C) / 96.6 (F) Weight: 250 lbs Code: 09376-2 02/04/2013 Blood Pressure 1: 124/80 Code: 8480-6 BMI: 38.4 Code: 42187-0 Heart Rate 1: 80 bpm Height: 5'7" Code: 8302-2 Respiratory Rate: 20 bpm Temperatu re: 36.4 (C) / 97.6 (F) Weight: 245 lbs Code: 71528-8 11/27/2012 Blood Pressure 1: 127/83 Code: 8480-6 Te mperature: 36.1 (C) / 96.9 (F) Weight: 243 lbs 2 oz Code: 49113-8 11/11/2012 Blood Pressure 1: 126/82 Code: 8480-6 BMI: 37.4 Code: 48812-9 Heart Rate 1: 80 bpm Height: 5'7" Code: 8302-2 Respiratory Rate: 20 bpm Temperatu re: 36.8 (C) / 98.2 (F) Weight: 239 lbs Code: 12624-6 10/20/2012 Blood Pressure 1: 114/80 Code: 8480-6 BMI: 37.1 Code: 80446-2 Heart Rate 1: 104 bpm Height: 5'7" Code: 8302-2 Respiratory Rate: 20 bpm Temperatu re: 36.9 (C) / 98.4 (F) Weight: 237 lbs Code: 10938-7 09/03/2012 Blood Pressure 1: 118/72 Code: 8480-6 BMI: 37.3 Code: 31603-7 Heart Rate 1: 70 bpm Height: 5'7" Code: 8302-2 Temperature: 35.6 (C) / 96.0 (F) Weight: 238 lbs Code: 53179-5 07/23/2012 Blood Pressure 1: 124/78 Code: 8480-6 BMI: 36.8 Code: 29972-4 Heart Rate 1: 68 bpm Height: 5'7" Code: 8302-2 Temperature: 35.6 (C) / 96.0 (F) Weight: 235 lbs Code: 16309-7 05/20/2012 Blood Pressure 1: 112/70 Code: 8480-6 BMI: 37.1 Code: 63886-8 Heart Rate 1: 76 bpm Height: 5'7" Code: 8302-2 Respiratory Rate: 20 bpm Temperatu re: 36.7 (C) / 98.1 (F) Weight: 237 lbs Code: 07061-1 04/04/2012 Blood Pressure 1: 110/64 Code: 8480-6 BMI: 37.1 Code: 56558-5 Heart Rate 1: 68 bpm Height: 5'7" Code: 8302-2 Temperature: 36.1 (C) / 97.0 (F) Weight: 237 lbs Code: 90343-6 02/20/2012 Blood Pressure 1: 136/78 Code: 8480-6 BMI: 37.1 Code: 27779-2 Heart Rate 1: 72 bpm Height: 5'7" Code: 8302-2 Respiratory Rate: 20 bpm Temperatu re: 36.7 (C) / 98.0 (F) Weight: 237 lbs Code: 01331-8 01/02/2012 Blood Pressure 1: 122/70 Code: 8480-6 BMI: 37.1 Code: 67751-0 Heart Rate 1: 76 bpm Height: 5'7" Code: 8302-2 Respiratory Rate: 20 bpm Temperatu re: 37.0 (C) / 98.6 (F) Weight: 237 lbs Code: 43531-0 09/04/2011 Blood Pressure 1: 120/84 Code: 8480-6 BMI: 35.4 Code: 03805-0 Heart Rate 1: 68 bpm Height: 5'7" Code: 8302-2 Temperature: 30.0 (C) / 86.0 (F) Weight: 226 lbs Code: 38797-4 08/14/2011 Blood Pressure 1: 120/82 Code: 8480-6 BMI: 36.5 Code: 27063-1 Heart Rate 1: 80 bpm Height: 5'7" Code: 8302-2 Temperature: 36.6 (C) / 97.8 (F) Weight: 233 lbs Code: 83596-1 07/31/2011 Blood Pressure 1: 138/86 Code: 8480-6 BMI: 37.0 Code: 25074-5 Heart Rate 1: 94 bpm Height: 5'7" Code: 8302-2 Temperature: 35.4 (C) / 95.7 (F) Weight: 236 lbs Code: 11688-9 07/25/2011 Blood Pressure 1: 128/80 Code: 8480-6 BMI: 37.0 Code: 98435-9 Heart Rate 1: 80 bpm Height: 5'7" Code: 8302-2 Temperature: 35.6 (C) / 96.0 (F) Weight: 236 lbs Code: 16869-6 07/12/2011 Blood Pressure 1: 132/80 Code: 8480-6 BMI: 37.0 Code: 13225-4 Heart Rate 1: 96 bpm Height: 5'7" Code: 8302-2 Respiratory Rate: 20 bpm Temperatu re: 36.3 (C) / 97.3 (F) Weight: 236 lbs Code: 55604-9 05/09/2011 Blood Pressure 1: 106/78 Code: 8480-6 BMI: 36.6 Code: 38864-4 Heart Rate 1: 72 bpm Height: 5'7" Code: 8302-2 Respiratory Rate: 20 bpm Temperatu re: 36.4 (C) / 97.6 (F) Weight: 234 lbs Code: 75200-0 05/02/2011 Blood Pressure 1: 96/72 Code: 8480-6 BMI: 36.6 C ode: 29327-1 Heart Rate 1: 108 bpm Height: 5'7" Code: 8302-2 Respiratory Rate: 24 bpm Temperatu re: 36.7 (C) / 98.0 (F) Weight: 234 lbs Code: 21969-3 04/25/2011 Blood Pressure 1: 120/72 Code: 8480-6 BMI: 36.5 Code: 00162-1 Heart Rate 1: 70 bpm Height: 5'7" Code: 8302-2 Temperature: 36.7 (C) / 98.0 (F) Weight: 233 lbs Code: 15727-7 04/04/2011 Blood Pressure 1: 126/92 Code: 8480-6 BMI: 36.5 Code: 68010-1 Heart Rate 1: 84 bpm Height: 5'7" Code: 8302-2 Respiratory Rate: 20 bpm Temperatu re: 36.2 (C) / 97.2 (F) Weight: 233 lbs Code: 60825-5 03/01/2011 Blood Pressure 1: 132/78 Code: 8480-6 Heart Rate 1: 88 bpm Temperature: 36.8 (C) / 98.2 (F) Weight: 231 lbs Code: 99127-8 01/04/2011 Blood Pressure 1: 122/78 Code: 8480-6 BMI: 37.0 Code: 59947-0 Heart Rate 1: 80 bpm Height: 5'7" Code: 8302-2 Temperature: 37.0 (C) / 98.6 (F) Weight: 236 lbs Code: 94081-9 12/07/2010 Blood Pressure 1: 132/92 Code: 8480-6 Heart Rate 1: 98 bpm Temperature: 36.2 (C) / 97.2 (F) Weight: 237 lbs Code: 06682-3 10/09/2010 Blood Pressure 1: 128/80 Code: 8480-6 Heart Rate 1: 72 bpm Temperature: 36.5 (C) / 97.7 (F) Weight: 244 lbs Code: 25223-3 08/07/2010 Blood Pressure 1: 114/80 Code: 8480-6 Heart Rate 1: 72 bpm Temperature: 36.2 (C) / 97.1 (F) Weight: 245 lbs Code: 74418-8 06/06/2010 Blood Pressure 1: 132/86 Code: 8480-6 Heart Rate 1: 80 bpm Temperature: 36.8 (C) / 98.2 (F) Weight: 242 lbs Code: 01719-7 04/12/2010 Blood Pressure 1: 126/82 Code: 8480-6 Heart Rate 1: 72 bpm Temperature: 36.8 (C) / 98.2 (F) Weight: 237 lbs Code: 81958-8 03/20/2010 Blood Pressure 1: 124/78 Code: 8480-6 Heart Rate 1: 76 bpm Temperature: 36.1 (C) / 97.0 (F) Weight: 239 lbs Code: 13379-2 01/30/2010 Blood Pressure 1: 118/80 Code: 8480-6 Heart Rate 1: 84 bpm Temperature: 37.1 (C) / 98.7 (F) Weight: 239 lbs Code: 40629-0 01/09/2010 Blood Pressure 1: 120/72 Code: 8480-6 BMI: 36.8 Code: 12212-6 Heart Rate 1: 80 bpm Height: 5'7" Code: 8302-2 Temperature: 36.1 (C) / 97.0 (F) Weight: 235 lbs Code: 81902-1 11/07/2009 Blood Pressure 1: 140/36 Cod e: 8480-6 10/26/2009 Blood Pressure 1: 126/82 Code: 8480-6 BMI: 36.9 Code: 63962-4 Heart Rate 1: 84 bpm Height: 5'7" Code: 8302-2 Temperature: 36.5 (C) / 97.7 (F) Weight: 234 lbs Code: 77597-1 10/17/2009 Blood Pressure 1: 140/88 Code: 8480-6 BMI: 36.3 Code: 74003-2 Heart Rate 1: 88 bpm Height: 5'7" Code: 8302-2 Temperature: 36.7 (C) / 98.0 (F) Weight: 232 lbs Code: 69516-3 10/04/2009 Blood Pressure 1: 140/90 Code: 8480-6 BMI: 36.3 Code: 08454-3 Heart Rate 1: 84 bpm Height: 5'7" Code: 8302-2 Temperature: 36.4 (C) / 97.6 (F) Weight: 232 lbs Code: 18578-5 09/21/2009 Blood Pressure 1: 136/82 Code: 8480-6 BMI: 36.3 Code: 02589-1 Heart Rate 1: 88 bpm Height: 5'7" Code: 8302-2 Temperature: 35.8 (C) / 96.4 (F) Weight: 232 lbs Code: 44815-1 Functional Status No Functional Status data Reason For Visit Reason For Visit Effective Dates Notes painful urination 09/10/2022 back pain 09/10/2022 fatigue 09/10/2022 dizziness 09/10/2022 nausea 09/05/2022 back pain 09/05/2022 dizziness 09/05/2022 ~generic 08/30/2022 handicap placard elvia lawson. She had her initial evaluation today with Chiropractor. They are wanting her to have x-rays of cervical and lumbar spine. She currently has a handicap placard and is needing a renewal. She does not currently use assistive devices. She will use walking sticks if she going a long distance. She does have chronic neuropathy in her feet. hyperlipidemia 08/07/2022 depression 08/07/2022 pt states she is doi ng ok - fatigue 08/07/2022 hypothyroid 08/07/2022 urinary frequency 06/29/2022 urinary retention/hesitancy 06/29/2022 flank pain 06/29/2022 follow up 05/28/2022 Depression depression 05/28/2022 follow up 05/10/2022 dizziness 05/10/2022 neck pain 05/10/2022 fatigue 05/10/2022 headache 04/18/2022 started this early t his AM injection(s) 04/05/2022 flu shot cough 02/15/2022 headache 02/15/2022 jaw pain 02/15/2022 well woman exam (65+ years) 02/06/2022 high blood pressure 02/06/2022 hyperlipidemia 02/06/2022 hyperglycemia 02/06/2022 headache 02/01/2022 follow up 11/29/2021 cough 11/29/2021 diarrhea 11/29/2021 follow up 11/22/2021 cough 11/22/2021 otalgia 11/22/2021 taste change 11/22/2021 diarrhea 11/22/2021 diarrhea 11/21/2021 last couple of weeks has daily diarrhea cough 11/21/2021 follow up 11/09/2021 cough 11/09/2021 dyspnea 11/09/2021 pneumonia 11/09/2021 follow up 10/31/2021 cough 10/31/2021 dyspnea 10/31/2021 pneumonia 10/31/2021 dizziness 10/30/2021 vomiting 10/30/2021 muscle weakness 10/30/2021 cough 10/30/2021 diaphoresis 10/30/2021 chills 10/30/2021 headache 10/30/2021 otalgia 09/05/2021 neck pain 09/05/2021 arthralgia(s) 08/24/2021 cough 07/04/2021 sinus congestion 07/04/2021 sore throat 07/04/2021 nasal discharge 07/04/2021 cough 07/04/2021 injection(s) 03/29/2021 flu shot near-syncope/dizziness 03/01/2021 Near-syncope in o ffice as visitor cyst 02/08/2021 rash 01/19/2021 well woman exam (65+ years) 01/03/2021 Medicare Wel lness high blood pressure 01/03/2021 hyperlipidemia 01/03/2021 diabetes mellitus 01/03/2021 hypothyroid 01/03/2021 cough 11/29/2020 sore throat 11/29/2020 postnasal drip 11/29/2020 sinus congestion 11/29/2020 sinus pain 09/29/2020 nasal discharge 09/29/2020 otitis media 09/29/2020 fullness in bilatera l ears cough 09/19/2020 nasal allergies 09/19/2020 sore throat 09/19/2020 headache 09/19/2020 sinus congestion 09/19/2020 follow up 08/10/2020 tinnitus 08/10/2020 otalgia 08/10/2020 otalgia 08/01/2020 tinnitus 08/01/2020 follow up 07/13/2020 muscle weakness 07/13/2020 disturbances of thinking 07/13/2020 chills 07/05/2020 diaphoresis 07/05/2020 anorexia 07/05/2020 diarrhea 07/05/2020 cough 07/05/2020 follow up 06/22/2020 high blood pressure 06/22/2020 hyperlipidemia 06/22/2020 diabetes mellitus 06/22/2020 hypothyroid 06/22/2020 pulmonary embolus 06/22/2020 dyspnea 06/22/2020 urinary urgency 05/17/2020 pelvic pain 05/17/2020 urinary incontinence 05/17/2020 painful urination 05/17/2020 follow up 03/14/2020 pulmonary embolus 03/14/2020 cough 03/14/2020 dyspnea 03/14/2020 high blood pressure 03/14/2020 cough 03/07/2020 dyspnea 03/07/2020 follow up 03/02/2020 from COVID cough 03/02/2020 cough 02/11/2020 shortness of breath 02/11/2020 headache 02/11/2020 sore throat 02/11/2020 vision change 02/11/2020 well woman exam (65+ years) 12/21/2019 Annual Welln ess high blood pressure 12/21/2019 hyperlipidemia 12/21/2019 diabetes mellitus 12/21/2019 hypothyroid 12/21/2019 rash 09/29/2019 Pre-op Physical 09/14/2019 H&P for foot surgery foot pain 09/14/2019 painful urination 09/14/2019 follow up 09/11/2019 repeat urine C&S frequent urination 09/02/2019 pelvic pain 09/02/2019 eyelid edema 07/09/2019 eyelid pain 07/09/2019 frequent urination 04/15/2019 urinary incontinence 04/15/2019 pain, limb 04/07/2019 muscle weakness 04/07/2019 joint complaint 04/07/2019 follow up 03/25/2019 abdominal pain 03/25/2019 vomiting 03/25/2019 diarrhea 03/25/2019 shoulder pain 03/18/2019 right shoulder pain abdominal pain 03/18/2019 diarrhea 03/18/2019 vomiting 03/18/2019 nausea 03/18/2019 nausea 01/26/2019 abdominal pain 01/26/2019 diarrhea 01/26/2019 follow up 01/08/2019 dyspnea 01/08/2019 cough 01/08/2019 hoarseness 01/08/2019 muscle weakness 01/08/2019 neck pain 01/08/2019 and stiffness shoulder pain 01/08/2019 upper back pain 01/08/2019 wheezing 01/08/2019 chest tightness 01/08/2019 sinusitis 01/08/2019 shortness of breath 01/08/2019 cough 01/06/2019 chest congestion 01/06/2019 dyspnea 01/06/2019 headache 01/06/2019 follow up 01/06/2019 sinusitis 01/06/2019 shortness of breath 01/06/2019 wheezing 01/06/2019 well woman exam (65+ years) 12/11/2018 dizziness 10/30/2018 headache 10/30/2018 nausea 10/30/2018 cough 10/07/2018 headache 10/07/2018 chest congestion 10/07/2018 abdominal pain 10/07/2018 ~generic 10/07/2018 overall itching photophobia 10/07/2018 follow up 06/23/2018 foot pain 06/23/2018 Dr Blancho wants pat ient to have referral to rheumatology joint complaint 06/23/2018 follow up 01/16/2018 high blood pressure 01/16/2018 hyperlipidemia 01/16/2018 diabetes mellitus 01/16/2018 hypothyroid 01/16/2018 shoulder pain 10/16/2017 Pain radiating in ri ght neck and jaw area otalgia 10/16/2017 disturbances of thinking 09/12/2017 headache 09/12/2017 dizziness 09/12/2017 follow up 08/20/2017 cough 08/20/2017 follow up 08/13/2017 cough 08/13/2017 cough 07/29/2017 Patient diagnosed la with flu and has finished prednisone muscle weakness 07/29/2017 fever 07/29/2017 fatigue 07/25/2017 cough 07/25/2017 fever 07/25/2017 sinus pain 07/25/2017 headache 07/25/2017 chills 07/25/2017 arthralgia(s) 06/10/2017 joint complaint 06/10/2017 cough 05/28/2017 wheezing 05/28/2017 dyspnea on exertion 05/28/2017 chest tightness 05/28/2017 high blood pressure 04/04/2017 diabetes mellitus 04/04/2017 hyperlipidemia 04/04/2017 hypothyroid 04/04/2017 well woman exam (65+ years) 04/04/2017 follow up 11/28/2016 hypothyroid 11/28/2016 hyperlipidemia 11/28/2016 diabetes mellitus 11/28/2016 skin lesion 11/28/2016 chest pain 11/28/2016 abdominal pain 06/05/2016 injection(s) 05/01/2016 Flu shot follow up 11/08/2015 high blood pressure 11/08/2015 diabetes mellitus 11/08/2015 hypothyroid 11/08/2015 hyperlipidemia 11/08/2015 shoulder pain 11/08/2015 urinary incontinence 11/08/2015 follow up 07/19/2015 1 month diabetes mellitus 07/19/2015 hypothyroid 07/19/2015 high blood pressure 07/19/2015 hyperlipidemia 07/19/2015 fatigue 07/19/2015 headache 07/19/2015 follow up 03/28/2015 4mo fwup diabetes mellitus 03/28/2015 hypothyroid 03/28/2015 high blood pressure 03/28/2015 injection(s) 03/28/2015 Requests flu shot hyperlipidemia 03/28/2015 follow up 02/08/2015 1mo fwup depression 02/08/2015 fatigue 02/08/2015 flank pain 01/11/2015 fatigue 01/11/2015 depression 01/11/2015 arthralgia(s) 01/11/2015 myalgias 01/11/2015 follow up 11/24/2014 high blood pressure 11/24/2014 diabetes mellitus 11/24/2014 hyperlipidemia 11/24/2014 chest pain/pressure 11/24/2014 follow up 11/19/2014 ER fwup anaphylactoid reaction 11/19/2014 abdominal pain 10/27/2014 flank pain 09/23/2014 pelvic pain 09/23/2014 urinary urgency 09/23/2014 follow up 07/28/2014 high blood pressure 07/28/2014 diabetes mellitus 07/28/2014 hyperlipidemia 07/28/2014 hypothyroid 07/28/2014 follow up 03/30/2014 high blood pressure 03/30/2014 hyperlipidemia 03/30/2014 diabetes mellitus 03/30/2014 follow up 11/24/2013 3 month diabetes mellitus 11/24/2013 need refill for stri ps and lancets depression 11/24/2013 hyperlipidemia 11/24/2013 follow up 08/25/2013 2mo fwup depression 08/25/2013 diabetes mellitus 08/25/2013 follow up 06/29/2013 1mo fwup depression 06/29/2013 follow up 05/26/2013 2wk fwup depression 05/26/2013 follow up 05/06/2013 cough 05/06/2013 chest tightness 05/06/2013 diabetes mellitus 05/06/2013 dc labs hypothyroid 05/06/2013 cough 04/23/2013 chest congestion 04/23/2013 chest tightness 04/23/2013 follow up 03/31/2013 2wk fwup from heart cath chest pain/pressure 03/31/2013 cough 03/31/2013 dyspnea 03/31/2013 cough 03/05/2013 chest tightness 03/05/2013 anxiety 03/05/2013 follow up 02/04/2013 Discuss labs high blood pressure 02/04/2013 hyperlipidemia 02/04/2013 hypothyroid 02/04/2013 cough 02/04/2013 nasal allergies 02/04/2013 follow up 11/27/2012 go over ECHO results cough 11/27/2012 follow up 11/11/2012 On PFT's cough 11/11/2012 dyspnea 11/11/2012 abdominal pain 10/20/2012 diarrhea 10/20/2012 nausea 10/20/2012 cough 10/20/2012 cough 09/03/2012 sinus congestion 09/03/2012 sore throat 09/03/2012 diarrhea 07/23/2012 follow up 05/20/2012 3mo fwup high blood pressure 05/20/2012 diabetes mellitus 05/20/2012 hyperlipidemia 05/20/2012 abdominal pain 05/20/2012 nausea 05/20/2012 rash 04/04/2012 mole check 02/20/2012 to right side/abdomi nal area follow up 01/02/2012 discuss labs high blood pressure 01/02/2012 hyperlipidemia 01/02/2012 diabetes mellitus 01/02/2012 hypothyroid 01/02/2012 cough 09/04/2011 dizziness 09/04/2011 chest congestion 09/04/2011 follow up 08/14/2011 [facility] 08/14/2011 venous thrombosis 08/14/2011 abdominal pain 08/14/2011 abdominal pain 07/31/2011 chest congestion 07/25/2011 cough 07/25/2011 follow up 07/12/2011 discuss labs hypothyroid 07/12/2011 currently taking 150 mcg daily follow up 05/09/2011 1wk fwup, finished d oxycycline/prednisone cough 05/09/2011 follow up 05/02/2011 ER fwup cough 05/02/2011 chest tightness 05/02/2011 chest congestion 05/02/2011 follow up 04/25/2011 sinus congestion 04/04/2011 follow up 03/01/2011 2mo fwup fatigue 03/01/2011 arthralgia(s) 03/01/2011 neck pain 03/01/2011 joint complaint 03/01/2011 follow up 01/04/2011 3mo fwup/discuss lab s high blood pressure 01/04/2011 hyperlipidemia 01/04/2011 hypothyroid 01/04/2011 fatigue 01/04/2011 joint complaint 01/04/2011 skin lesion 12/07/2010 Pt states was bitten by unknown insect on upper side of right bicep 2 weeks ago. Pt states is slightly swollen and hard core. Denies fever. follow up 10/09/2010 discuss labs hyperlipidemia 10/09/2010 hypothyroid 10/09/2010 currently taking lev othyroxine 125mcg daily, difficulty swallowing the last couple weeks so not sure if related to thyroid polydipsia 10/09/2010 follow up 08/07/2010 discuss labs fatigue 08/07/2010 snoring 08/07/2010 daytime hypersomnolence 08/07/2010 diaphoresis 06/06/2010 fatigue 06/06/2010 knee pain 04/12/2010 due for bilateral kn ee injections follow up 03/20/2010 discuss labs hypothyroid 03/20/2010 back pain 01/30/2010 follow up 01/09/2010 joint complaint 01/09/2010 bilateral knees hurt ing since fall myalgias 01/09/2010 feels like knot in l eft side knee pain 10/26/2009 bilateral knee pain- requests coritsone injections hyperlipidemia 10/26/2009 high blood pressure 10/17/2009 headache 10/17/2009 pelvic pain 10/04/2009 vomiting 10/04/2009 ~generic 09/21/2009 Needs refill on Volt aren Gel 1% headache 09/21/2009 Encounters Encounter Performer Location Location Address Codes Date ([id number]) OFFICE/OUTPATIENT VISIT EST Diagnosis: Dehydration[ICD10: E86.0] Diagnosis: Acute cystitis[ICD10: N30.00] Marlene VANESSA DO [employer] [address] [place] [phone] CPT-4: 30032 09/10/2022 ([id number]) OFFICE/OUTPATIENT VISIT EST Diagnosis: Acute cystitis[ICD10: N30.00] Marlene VANESSA DO [employer] [address] [place] [phone] CPT-4: 29903 09/05/2022 ([id number]) OFFICE/OUTPATIENT VISIT EST Diagnosis: Degeneration of lumbar or lumbosacral intervertebral disc[ICD10: M51.37] Diagnosis: Cervicalgia[ICD10: M54.2] Marlene ELAM [employer] [address] [place] [phone] CPT-4: 16232 08/30/2022 ([id number]) OFFICE/OUTPATIENT VISIT EST Diagnosis: Hypothyroidism[ICD10: E03.9] Diagnosis: Essential (primary) hypertension[ICD10: I10] Diagnosis: Mixed hyperlipidemia[ICD10: E78.2] Diagnosis: Stress at home[ICD10: F43.9] Jayna MORILLOLINE TracyPaige JANISER DO [address] [phone] CPT-4: 35891 08/07/2022 ([id number]) OFFICE/OUTPATIENT VISIT EST Diagnosis: Acute cystitis[ICD10: N30.00] Marlene MolinaPaige ANDIE DO [address] [address] CPT-4: 95592 06/29/2022 ([id number]) OFFICE/OUTPATIENT VISIT EST Diagnosis: Depression[ICD10: F32.A] Diagnosis: Hypothyroidism[ICD10: E03.9] Ajyna Oremarialuisa GUTIERREZ TracyPaige ANDIE DO [address] [phone] CPT-4: 48050 05/28/2022 ([id number]) OFFICE/OUTPATIENT VISIT EST Diagnosis: Depression[ICD10: F32.A] Diagnosis: Fatigue[ICD10: R53.83] Diagnosis: Hypothyroidism[ICD10: E03.9] Diagnosis: Hyperglycemia[ICD10: R73.9] Jayna Jessicamarialuisa PUCKETT DO [address] [address] CPT-4: 37212 05/10/2022 ([id number]) OFFICE/OUTPATIENT VISIT EST Diagnosis: Migraine, intractable[ICD10: G43.919] Marlene VILLARREALEMILIO GERBER TracyPaige ANDIE DO [address] [address] CPT-4: 29534 04/18/2022 ([id number]) NURSE/OUTPATIENT VISIT EST Diagnosis: FLU VACCINE[ICD10: Z23] Jayna Jessicamarialuisa GUTIERREZ TracyPaige JESSICAND ER DO [address] [address] CPT-4: 10965 04/05/2022 ([id number]) OFFICE/OUTPATIENT VISIT EST Diagnosis: Allergic rhinitis[ICD10: J30.9] Diagnosis: Acute sinusitis[ICD10: J01.90] 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] Jayna Sanchez JESSICAMARIALUISA DO [address] [address] CPT-4: 88690 02/15/2022 ([id number]) Annual depression screening, 15 minutes Diagnosis: Encounter for general adult medical examination without abnormal findings[ICD10: Z00.00] Diagnosis: Essential (primary) hypertension[ICD10: I10] Diagnosis: Mixed hyperlipidemia[ICD10: E78.2] Diagnosis: Hypothyroidism, unspecified[ICD10: E03.9] Diagnosis: Chronic obstructive pulmonary disease, unspecified[ICD10: J44.9] Jayna VANESSA [address] [address] CPT-4: G0444 02/06/2022 ([id number]) OFFICE/OUTPATIENT VISIT EST Diagnosis: 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] Diagnosis: Vision changes[ICD10: H53.9] Latasha Rosashoa VANESSA [address] [address] CPT-4: 26845 02/01/2022 ([id number]) OFFICE/OUTPATIENT VISIT EST Diagnosis: Diarrhea[ICD10: R19.7] Diagnosis: Cough[ICD10: R05.9] Jayna VANESSA [address] [address] CPT-4: 68384 11/30/19 ([id number]) OFFICE/OUTPATIENT VISIT EST Diagnosis: Post-viral cough syndrome[ICD10: R05.8] Diagnosis: Otalgia of both ears[ICD10: H92.03] Diagnosis: Diarrhea[ICD10: R19.7] Jayna Villalba [address] [address] CPT-4: 62935 11/22/2021 ([id number]) OFFICE/OUTPATIENT VISIT EST Diagnosis: Diarrhea of presumed infectious origin[ICD10: R19.7] Diagnosis: Altered taste[ICD10: R43.2] Diagnosis: Chronic bronchitis[ICD10: J42] Diagnosis: History of recent pneumonia[ICD10: Z87.01] Latasha VANESSA DO [address] [address] CPT- 4: 77522 11/21/2021 ([id number]) OFFICE/OUTPATIENT VISIT EST Diagnosis: Serous otitis media[ICD10: H65.90] Diagnosis: Postnasal drip[ICD10: R09.82] Diagnosis: Pneumonia[ICD10: J18.9] Jayna BRUCE ER DO [address] [address] CPT-4: 49444 11/09/2021 ([id number]) NO CHARGE Diagnosis: Pneumonia[ICD10: J18.9] Diagnosis: Respiratory distress[ICD10: R06.03] Jayna BRUCEER DO [address] [address] CPT-4: 92577 10/31/2021 ([id number]) OFFICE/OUTPATIENT VISIT EST Diagnosis: Vertigo[ICD10: R42] Diagnosis: Nausea[ICD10: R11.0] Diagnosis: Pneumonia[ICD10: J18.9] Jayna BRUCE ER DO [address] [address] CPT-4: 19756 10/30/2021 ([id number]) OFFICE/OUTPATIENT VISIT EST Diagnosis: Cervicalgia[ICD10: M54.2] Jayna GREENBERG NDER DO [address] [address] CPT-4: 18462 09/05/2021 ([id number]) OFFICE/OUTPATIENT VISIT EST Diagnosis: 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] Diagnosis: Seronegative rheumatoid arthritis[ICD10: M06.00] Latasha VANESSA DO [address] [address] CPT- 4: 45589 08/24/2021 ([id number]) OFFICE/OUTPATIENT VISIT EST Diagnosis: Upper respiratory infection[ICD10: J06.9] Diagnosis: Contact with and (suspected) exposure to other viral communicable diseases[ICD10: Z20.828] Latasha VANESSA DO [address] [address] CPT-4: 98972 07/04/2021 ([id number]) NURSE/OUTPATIENT VISIT EST Diagnosis: FLU VACCINE[ICD10: Z23] Jayna JIANG [address] [address] CPT-4: 40396 03/29/2021 ([id number]) OFFICE/OUTPATIENT VISIT EST Diagnosis: Vasovagal episode[ICD10: R55] Diagnosis: Orthostatic hypotension[ICD10: I95.1] Latasha VANESSA DO [address] [address] CPT-4: 74118 03/01/2021 ([id number]) OFFICE/OUTPATIENT VISIT EST Diagnosis: Sebaceous cyst of right axilla[ICD10: L72.3] Latasha VANESSA DO [address] [address] CPT- 4: 73687 02/08/2021 ([id number]) OFFICE/OUTPATIENT VISIT EST Diagnosis: Contact dermatitis[ICD10: L25.9] Jayna VANESSA DO [address] [address] CPT-4: 52315 01/19/2021 ([id number]) OFFICE/OUTPATIENT VISIT EST Diagnosis: Upper respiratory infection[ICD10: J06.9] Diagnosis: COPD exacerbation[ICD10: J44.1] Latasha VANESSA DO [address] [address] CPT-4: 05095 11/29/2020 ([id number]) OFFICE/OUTPATIENT VISIT EST Diagnosis: Sinusitis[ICD10: J32.9] Diagnosis: Acute pansinusitis, recurrence not specified[ICD10: J01.40] Latasha VANESSA DO [facility] [address] [place] [address] CPT-4: 34351 09/29/2020 OFFICE/OUTPATIENT VISIT EST Diagnosis: Other seasonal allergic rhinitis[ICD10: J30.2] Diagnosis: Chronic bronchitis[ICD10: J42] Diagnosis: 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 [address] [place] [address] CPT-4: 10816 2020 ([id number]) OFFICE/OUTPATIENT VISIT EST Diagnosis: Pyelonephritis[ICD10: N12] Diagnosis: Anemia[ICD10: D64.9] Diagnosis: Blood in stool[ICD10: K92.1] Jayna VANESSA DO [facility] [address] [place] [address] CPT-4: 60675 07/13/2020 ([id number]) OFFICE/OUTPATIENT VISIT EST Diagnosis: Acute gastroenteritis[ICD10: K52.9] Jayna VANESSA DO [facility] [address] [place] [address] CPT-4: 22206 07/05/2020 ([id number]) OFFICE/OUTPATIENT VISIT EST Diagnosis: Essential hypertension[ICD10: I10] Diagnosis: Hypothyroidism, unspecified[ICD10: E03.9] Diagnosis: Metabolic syndrome[ICD10: E88.81] Diagnosis: Mixed hyperlipidemia[ICD10: E78.2] Diagnosis: Qtzsy-3-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] Jayna GREENBERGNDAPOLINAR [address] [address] CPT- 4: 74210 06/22/2020 ([id number]) OFFICE/OUTPATIENT VISIT EST Diagnosis: Urinary tract infection[ICD10: N39.0] Jayna VILLARREALEMILIO BUZZ VANESSA [address] [address] CPT-4: 42322 05/17/2020 ([id number]) OFFICE/OUTPATIENT VISIT EST Diagnosis: Right pulmonary embolus[ICD10: I26.99] Jayna Vanessa NORRIS StonerBUZZ SPaige GREENBERGNDER [address] [address] CPT-4: 55281 03/14/2020 ([id number]) OFFICE/OUTPATIENT VISIT EST Diagnosis: COVID-19[ICD10: U07.1] Diagnosis: Pneumonia[ICD10: J18.9] Diagnosis: Dyspnea[ICD10: R06.00] Jayna Villalba [address] [address] CPT-4: 32393 03/07/2020 ([id number]) OFFICE/OUTPATIENT VISIT EST Diagnosis: Upper respiratory infection[ICD10: J06.9] Genesis Jolene MUNOZBUZZ S. ORENDER DO [address] [address] CPT-4: 09206 02/11/2020 ([id number]) OFFICE/OUTPATIENT VISIT EST Diagnosis: Dermatitis[ICD10: L30.9] Diagnosis: Urticaria[ICD10: L50.9] Jayna Oreleydaapolinar [facility] [address] [place] [address] CPT-4: 34942 09/29/2019 ([id number]) OFFICE/OUTPATIENT VISIT EST Diagnosis: Bone spur of right foot[ICD10: M77.51] Diagnosis: Recurrent UTI[ICD10: N39.0] Diagnosis: MRSA (methicillin resistant staph aureus) culture positive[ICD10: Z22.322] [facility] [address] [place] [address] CPT-4: 18416 09/14/2019 ([id number]) NURSE/OUTPATIENT VISIT EST Diagnosis: Urinary tract infection[ICD10: N39.0] Jayna VANESSA DO [facility] [address] [place] [address] CPT-4: 14637 09/11/2019 ([id number]) NURSE/OUTPATIENT VISIT EST Diagnosis: Urinary tract infection, site not specified[ICD10: N39.0] Jayna VANESSA DO [address] [address] CPT-4: 27882 09/08/2019 ([id number]) NURSE/OUTPATIENT VISIT EST Diagnosis: Urinary tract infection, site not specified[ICD10: N39.0] Jayna VANESSA DO [facility] [address] [place] [address] CPT-4: 63844 09/07/2019 ([id number]) OFFICE/OUTPATIENT VISIT EST Diagnosis: Pelvic pain in female[ICD10: R10.2] Diagnosis: Urinary frequency[ICD10: R35.0] Genesis VANESSA DO [facility] [address] [place] [address] CPT-4: 48198 09/02/2019 ([id number]) OFFICE/OUTPATIENT VISIT EST Diagnosis: Sinusitis[ICD10: J32.9] Genesis BRUCE ER DO [facility] [address] [place] [address] CPT-4: 36600 07/09/2019 ([id number]) OFFICE/OUTPATIENT VISIT EST Diagnosis: UTI (urinary tract infection)[ICD10: N39.0] Diagnosis: FLU VACCINE[ICD10: Z23] [facility] [address] [place] [address] CPT-4: 51586 04/15/2019 ([id number]) OFFICE/OUTPATIENT VISIT EST Diagnosis: Pain in right leg[ICD10: M79.604] [facility] [address] [place] [address] CPT-4: 54938 04/07/2019 ([id number]) OFFICE/OUTPATIENT VISIT EST Diagnosis: Diverticulitis of large intestine without perforation or abscess without bleeding[ICD10: K57.32] Diagnosis: Cystitis[ICD10: N30.90] Jayna [facility] [address] [place] [address] CPT-4: 05694 03/25/2019 ([id number]) OFFICE/OUTPATIENT VISIT EST Diagnosis: Abdominal pain[ICD10: R10.9] Diagnosis: Cystitis[ICD10: N30.90] [facility]na [facility] [address] [place] [address] CPT-4: 45597 03/18/2019 ([id number]) OFFICE/OUTPATIENT VISIT EST Diagnosis: Diverticulitis of large intestine without perforation or abscess without bleeding[ICD10: K57.32] Diagnosis: Generalized abdominal pain[ICD10: R10.84] Diagnosis: Urinary tract infection, site not specified[ICD10: N39.0] [facility] [address] [place] [address] CPT-4: 20074 01/26/2019 ([id number]) OFFICE/OUTPATIENT VISIT EST Diagnosis: Mild intermittent asthma with (acute) exacerbation[ICD10: J45.21] Diagnosis: Allergic rhinitis due to pollen[ICD10: J30.1] Jayna [facility] [address] [place] [address] CPT- 4: 32915 01/08/2019 ([id number]) OFFICE/OUTPATIENT VISIT EST Diagnosis: Mild intermittent asthma with (acute) exacerbation[ICD10: J45.21] Diagnosis: URI, ACUTE[ICD10: J06.9] Diagnosis: Urinary tract infection, site not specified[ICD10: N39.0] Jayna VANESSA DO [facility] [address] [place] [address] CPT-4: 77618 01/06/2019 ([id number]) OFFICE/OUTPATIENT VISIT EST Diagnosis: Benign paroxysmal vertigo, bilateral[ICD10: H81.13] Diagnosis: Migraine without aura, not intractable, without status migrainosus[ICD10: G43.009] Jayna VANESSA DO [facility] [address] [place] [address] CPT-4: 03872 10/30/2018 ([id number]) OFFICE/OUTPATIENT VISIT EST Diagnosis: Acute bronchitis, unspecified[ICD10: J20.9] Diagnosis: Cough[ICD10: R05] Diagnosis: Other seasonal allergic rhinitis[ICD10: J30.2] Stacey VANESSA DO [address] [address] CPT- 4: 03159 10/07/2018 ([id number]) OFFICE/OUTPATIENT VISIT EST Diagnosis: Pain in unspecified joint[ICD10: M25.50] Diagnosis: Pain in right ankle and joints of right foot[ICD10: M25.571] Diagnosis: Other specified disorders of bone density and structure, unspecified site[ICD10: M85.80] Jayna Andie MORILLOLINE Daniel VANESSA DO [address] [address] CPT-4: 53515 06/23/2018 ([id number]) OFFICE/OUTPATIENT VISIT EST Diagnosis: Hypothyroidism, unspecified[ICD10: E03.9] Diagnosis: Mixed hyperlipidemia[ICD10: E78.2] Jayna Andie CHERELLEMINTAMI ALVARENGA Daniel VANESSA DO [address] [address] CPT-4: 34204 01/16/2018 ([id number]) OFFICE/OUTPATIENT VISIT EST Diagnosis: Cervicalgia[ICD10: M54.2] Genesis ELAM DO [address] [address] CPT-4: 08560 10/16/2017 ([id number]) OFFICE/OUTPATIENT VISIT EST Diagnosis: Headache[ICD10: R51] Diagnosis: Dizziness and giddiness[ICD10: R42] Jayna Andie FLAKITO GREENBERGNDER DO [address] [address] CPT-4: 78572 09/12/2017 OFFICE/OUTPATIENT VISIT EST Diagnosis: Cough[ICD10: R05] Genesis BRUCEER DO [facility] [address] [place] [address] CPT-4: 45263 08/20/2017 ([id number]) OFFICE/OUTPATIENT VISIT EST Diagnosis: COUGH[ICD10: R05] Jayna BRUCEER DO [address] [address] CPT-4: 11334 08/13/19 ([id number]) OFFICE/OUTPATIENT VISIT EST Diagnosis: Acute bronchospasm[ICD10: J98.01] Jayna Orendapolinar GREENBERGNDER DO [address] [address] CPT-4: 47201 07/29/2017 OFFICE/OUTPATIENT VISIT EST Diagnosis: Influenza due to identified novel influenza A virus with other respiratory manifestations[ICD10: J09.X2] Genesis [facility] [address] [place] [address] CPT-4: 11783 07/25/2017 ([id number]) OFFICE/OUTPATIENT VISIT EST Diagnosis: Pain in unspecified joint[ICD10: M25.50] Jayna [facility] [address] [place] [address] CPT- 4: 95679 06/10/2017 OFFICE/OUTPATIENT VISIT EST Diagnosis: Acute bronchitis, unspecified[ICD10: J20.9] Genesis VANESSA [address] [address] CPT- 4: 33456 05/28/2017 ([id number]) OFFICE/OUTPATIENT VISIT EST Diagnosis: Hypothyroidism, unspecified[ICD10: E03.9] Diagnosis: Mixed hyperlipidemia[ICD10: E78.2] Diagnosis: Mjgbc-9-tlfquvmeoas 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] Diagnosis: Sebaceous cyst[ICD10: L72.3] Jayna Bruceapolinar JAYNA Daniel VANESSA [address] [address] CPT-4: 54838 11/28/2016 ([id number]) OFFICE/OUTPATIENT VISIT EST Diagnosis: Right upper quadrant pain[ICD10: R10.11] Diagnosis: Epigastric pain[ICD10: R10.13] Jayna Jessicamarialuisa JAYNA Tracy Paige ANDIE [address] [address] CPT-4: 77376 06/05/2016 ([id number]) OFFICE/OUTPATIENT VISIT EST Diagnosis: FLU VACCINE[ICD10: Z23] Jayna MORILLOLINE Daniel JIANG [address] [address] CPT-4: 21783 05/01/2016 OFFICE/OUTPATIENT VISIT EST Diagnosis: Hypothyroidism, unspecified[ICD10: E03.9] Diagnosis: Type 1 diabetes mellitus without complications[ICD10: E10.9] Diagnosis: Mixed hyperlipidemia[ICD10: E78.2] Diagnosis: Essential (primary) hypertension[ICD10: I10] Diagnosis: Mixed incontinence[ICD10: N39.46] Jayna Jessicamarialuisa Thomas TracyPaige ANDIE SAEZ [address] [address] CPT-4: 11086 11/08/2015 ([id number]) OFFICE/OUTPATIENT VISIT EST Diagnosis: Hypothyroidism, unspecified[ICD10: E03.9] Diagnosis: Other fatigue[ICD10: R53.83] Jayna GUTIERREZ Daniel VANESSA [address] [address] CPT-4: 15831 07/19/2015 ([id number]) OFFICE/OUTPATIENT VISIT EST Diagnosis: Hypothyroidism, unspecified[ICD10: E03.9] Diagnosis: Mixed hyperlipidemia[ICD10: E78.2] Diagnosis: Metabolic syndrome[ICD10: E88.81] Diagnosis: Right lower quadrant abdominal tenderness[ICD10: R10.813] Diagnosis: FLU VACCINE[ICD10: Z23] Jayna BRUCE [address] [address] CPT-4: 30457 03/28/2015 ([id number]) OFFICE/OUTPATIENT VISIT EST Diagnosis: MALAISE AND FATIGUE[ICD9: 780.79] Diagnosis: DEPRESSIVE DISORDER NEC[ICD9: 311] Diagnosis: HYPOTHYROIDISM[ICD9: 244.9] Diagnosis: PNEUMOCOCCAL VACCINE[ICD10: Z23] Jayna [address]UCE[address] [address] CPT-4: 51439 02/08/2015 ([id number]) OFFICE/OUTPATIENT VISIT EST Diagnosis: MALAISE AND FATIGUE[ICD9: 780.79] Diagnosis: DEPRESSIVE DISORDER NEC[ICD9: 311] Diagnosis: HYPOTHYROIDISM[ICD9: 244.9] Diagnosis: ARTHRALGIA-MULTIPLE SITES[ICD9: 719.49] Jayna BRU[address] [address] CPT-4: 37947 01/11/2015 ([id number]) OFFICE/OUTPATIENT VISIT EST 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] Diagnosis: - I - HYPOTHYROIDISM[ICD9: 244.9] Diagnosis: COUGH[ICD10: R05] Diagnosis: ALLERGIC RHINITIS[ICD9: 477.9] Diagnosis: Lumbar degenerative disc disease[ICD9: 722.52] Jayna VANESSA [address] [address] CPT- 4: 69356 11/24/2014 ([id number]) OFFICE/OUTPATIENT VISIT EST Diagnosis: Allergic reaction[ICD9: 995.3] Galina Dafne JAYNA VANESSA DO [employer] [address] [place] [address] CPT-4: 58284 11/19/2014 ([id number]) OFFICE/OUTPATIENT VISIT EST Diagnosis: ALLERGIC RHINITIS[ICD9: 477.9] Diagnosis: WHEEZING[ICD9: 786.07] Diagnosis: URINARY TRACT INFECTION[ICD9: 599.0] Diagnosis: Right flank pain[ICD9: 789.09] Conchita BRUCEER DO [employer] [address] [place] [address] CPT-4: 67618 10/27/2014 ([id number]) OFFICE/OUTPATIENT VISIT EST Diagnosis: URINARY TRACT INFECTION[ICD9: 599.0] Diagnosis: Flank pain[ICD9: 789.09] Conchita CARTER DO [address] [address] CPT-4: 90861 09/23/2014 ([id number]) OFFICE/OUTPATIENT VISIT EST Diagnosis: HYPERTENSION[ICD9: 401.9] Diagnosis: - I - HYPOTHYROIDISM[ICD9: 244.9] Diagnosis: HYPERLIPIDEMIA NEC/NOS[ICD9: 272.4] Diagnosis: DYSMETABOLIC SYNDROME X[ICD9: 277.7] Jayna VANESSA DO [address] [address] CPT-4: 43229 07/28/2014 OFFICE/OUTPATIENT VISIT EST Diagnosis: HYPERTENSION[ICD9: 401.9] Diagnosis: GROSS HEMATURIA[ICD9: 599.71] Jayna VANESSA DO [employer] [address] [place] [address] CPT-4: 79627 03/30/2014 ([id number]) OFFICE/OUTPATIENT VISIT EST 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 O RENDER DO [address] [address] CPT-4: 49139 08/25/2013 OFFICE/OUTPATIENT VISIT EST Diagnosis: DEPRESSIVE DISORDER NEC[ICD9: 311] Jayna ALVARENGA S. ORENDER DO [address] [address] CPT-4: 65187 06/29/2013 OFFICE/OUTPATIENT VISIT EST Diagnosis: DEPRESSIVE DISORDER NEC[ICD9: 311] Jayna ALVARENGA S. ORENDER DO [address] [address] CPT-4: 09160 05/26/2013 ([id number]) OFFICE/OUTPATIENT VISIT EST Diagnosis: BRONCHITIS, ACUTE[ICD9: 466.0] Diagnosis: HYPOTHYROIDISM[ICD9: 244.9] Diagnosis: HYPERLIPIDEMIA NEC/NOS[ICD9: 272.4] Diagnosis: Shoulder pain[ICD9: 719.41] Jayna Jessicamarialuisa GUTIERREZ S. O RENDER DO [address] [address] CPT-4: 47262 05/06/2013 ([id number]) OFFICE/OUTPATIENT VISIT EST Diagnosis: BRONCHITIS, ACUTE[ICD9: 466.0] Diagnosis: SINUSITIS, ACUTE[ICD9: 461.9] Jayna GUTIERREZ S. ORENDER DO [address] [address] CPT-4: 14416 04/23/2013 ([id number]) OFFICE/OUTPATIENT VISIT EST Diagnosis: DYSPNEA[ICD9: 786.09] Diagnosis: EDEMA[ICD9: 782.3] Diagnosis: TOJFK-7-OKYSXLHFRAI DEFICIENCY[ICD9: 273.4] Diagnosis: COUGH[ICD9: 786.2] Jayna VANESSA DO [address] [address] CPT-4: 38716 03/31/20 13 OFFICE/OUTPATIENT VISIT EST Diagnosis: Chest pain[ICD9: 786.50] Diagnosis: ANXIETY STATE NOS[ICD9: 300.00] Conchita VANESSA DO [address] [address] CPT-4: 99331 03/05/2013 ([id number]) OFFICE/OUTPATIENT VISIT EST Diagnosis: HYPERLIPIDEMIA NEC/NOS[ICD9: 272.4] Diagnosis: HYPOTHYROIDISM[ICD9: 244.9] Diagnosis: Uweje-0-ykjtpjdmmlb deficiency[ICD9: 273.4] Diagnosis: ALLERGIC RHINITIS[ICD9: 477.9] Jayna VANESSA DO [address] [address] CPT-4: 26313 02/04/2013 ([id number]) OFFICE/OUTPATIENT VISIT EST Diagnosis: COUGH[ICD9: 786.2] Diagnosis: ALLERGIC RHINITIS[ICD9: 477.9] Jayna VANESSA DO [address] [address] CPT-4: 07703 11/27/2012 ([id number]) OFFICE/OUTPATIENT VISIT EST Diagnosis: COUGH[ICD9: 786.2] Diagnosis: DYSPNEA[ICD9: 786.09] Jayna VANESSA DO [address] [address] CPT-4: 21861 11/11/2012 ([id number]) OFFICE/OUTPATIENT VISIT EST Diagnosis: ABDOMINAL PAIN[ICD9: 789.00] Diagnosis: DIARRHEA[ICD9: 787.91] Diagnosis: COUGH[ICD9: 786.2] Jayna VANESSA DO [address] [address] CPT-4: 05649 10/21/19 13 OFFICE/OUTPATIENT VISIT EST Diagnosis: COUGH[ICD9: 786.2] Diagnosis: SINUSITIS, ACUTE[ICD9: 461.9] Diagnosis: PHARYNGITIS, ACUTE[ICD9: 462] Jayna MORILLOLINE TracyPaige ANDIE [address] [address] CPT-4: 00038 09/03/2012 OFFICE/OUTPATIENT VISIT EST Diagnosis: ABDOMINAL PAIN[ICD9: 789.00] Diagnosis: Diarrhea[ICD9: 787.91] Jayna Jessicamarialuisa GUTIERREZ TracyPaige BIANCA Villalba DO [address] [address] CPT-4: 00177 07/23/2012 ([id number]) OFFICE/OUTPATIENT VISIT EST Diagnosis: DM 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 TYPE II, UNCONTROLLED[ICD9: 250.02] Diagnosis: HYPERLIPIDEMIA NEC/NOS[ICD9: 272.4] Diagnosis: GERD[ICD9: 530.81] Jayna Jessicamarialuisa GUTIERREZ TracyPaige ANDIE [address] [address] CPT-4: 29096 05/20/20 OFFICE/OUTPATIENT VISIT EST Diagnosis: DERMATITIS NOS[ICD9: 692.9] Galina GUTIERREZ TracyPaige PUCKETT [address] [address] CPT-4: 27326 04/04/2012 ([id number]) OFFICE/OUTPATIENT VISIT EST Diagnosis: HYPERLIPIDEMIA NEC/NOS[ICD9: 272.4] Diagnosis: HYPOTHYROIDISM[ICD9: 244.9] Diagnosis: DYSMETABOLIC SYNDROME X[ICD9: 277.7] Jayna Jessicamarialuisa QUEZADA TracyPaige ANDIE [address] [address] CPT-4: 51759 01/02/2012 OFFICE/OUTPATIENT VISIT EST Diagnosis: COUGH[ICD9: 786.2] Diagnosis: SINUSITIS, ACUTE[ICD9: 461.9] Lizzie GUTIERREZ TracyPaige ANDIE [address] [address] CPT-4: 84103 09/04/2011 OFFICE/OUTPATIENT VISIT EST Diagnosis: Diverticulitis[ICD9: 562.11] Diagnosis: THROMBOPHLEBITIS[ICD9: 451.9] Jayna VANESSA DO [address] [address] CPT-4: 63162 08/14/2011 OFFICE/OUTPATIENT VISIT EST Diagnosis: COUGH[ICD9: 786.2] Jayna VANESSA DO [address] [address] CPT-4: 62545 07/25/19 12 OFFICE/OUTPATIENT VISIT EST Diagnosis: HYPOTHYROIDISM[ICD9: 244.9] Diagnosis: HYPERLIPIDEMIA NEC/NOS[ICD9: 272.4] Diagnosis: Total knee replacement status[ICD9: V43.65] Jayna VANESSA DO [address] [address] CPT- 4: 97293 07/12/2011 OFFICE/OUTPATIENT VISIT EST Diagnosis: BRONCHITIS, ACUTE[ICD9: 466.0] Diagnosis: COUGH[ICD9: 786.2] Jayna VANESSA DO [address] [address] CPT-4: 50905 05/09/20 11 OFFICE/OUTPATIENT VISIT EST Diagnosis: BRONCHITIS, ACUTE[ICD9: 466.0] Diagnosis: ASTHMA NOS[ICD9: 493.90] Diagnosis: Pleurisy[ICD9: 511.0] Jayna VANESSA DO [address] [address] CPT-4: 80005 05/02/2011 OFFICE/OUTPATIENT VISIT EST Diagnosis: COUGH[ICD9: 786.2] Jayna VANESSA DO [address] [address] CPT-4: 78162 04/25/20 11 OFFICE/OUTPATIENT VISIT EST Diagnosis: COUGH[ICD9: 786.2] Diagnosis: SINUSITIS, ACUTE[ICD9: 461.9] Jayna VANESSA [address] [place] [address] CPT-4: 46741 04/04/2011 OFFICE/OUTPATIENT VISIT EST Diagnosis: HYPOTHYROIDISM[ICD9: 244.9] Diagnosis: Knee osteoarthritis[ICD9: 715.96] Jaynaparam Vanessa [facility] [address] [place] [address] CPT-4: 00391 03/01/2011 OFFICE/OUTPATIENT VISIT EST Jayna Jessicaleydaapolinar [facility]REZ [facility] [address] [place] [address] CPT-4: 88170 01/04/2011 ([id number]) OFFICE/OUTPATIENT VISIT EST Jayna Jessicaleydaapolinar [facility] [address] [place] [address] CPT-4: 16695 12/07/2010 ([id number]) OFFICE/OUTPATIENT VISIT EST Jayna Jessicamarialuisa NORRIS [facility] [address] [place] [address] CPT-4: 74308 10/09/2010 ([id number]) OFFICE/OUTPATIENT VISIT EST Jayna Andie [facility] [address] [place] [address] CPT-4: 81461 08/07/2010 ([id number]) OFFICE/OUTPATIENT VISIT, EST Jayna Jessicamarialuisa [facility] [address] [place] [address] CPT-4: 81986 06/06/2010 ([id number]) OFFICE/OUTPATIENT VISIT, EST Jayna Jessicamarialuisa [facility] [address] [place] [phone] CPT-4: 95334 03/20/2010 ([id number]) OFFICE/OUTPATIENT VISIT, EST Jayna [facility] [address] [place] [phone] CPT-4: 98518 01/30/2010 ([id number]) OFFICE/OUTPATIENT VISIT, EULOGIO VANESSA DO [facility] [address] [place] [address] CPT-4: 33689 01/09/2010 ([id number]) OFFICE/OUTPATIENT VISIT, EULOGIO VANESSA DO [facility] [address] [place] [address] CPT-4: 36006 10/26/2009 ([id number]) OFFICE/OUTPATIENT VISIT, EULOGIO VANESSA DO [facility] [address] [place] [phone] CPT-4: 28420 10/18/19 10 ([id number]) OFFICE/OUTPATIENT VISIT, EULOGIO VANESSA DO [facility] [address] [place] [phone] CPT-4: 07548 10/04/2009 ([id number]) OFFICE/OUTPATIENT VISIT, EULOGIO VANESSA DO [facility] [address] [place] [phone] CPT-4: 03783 09/21/2009 Plan of Care Planned Activity Notes Codes Status Date Visit Diagnosis Plan: Acute cystitis Discussion: NOT r esponding to Macrobid-- resistant to multiple oral antibiotics. Consulted with Dr. Vanessa and agreeable with direct admit for IVF and antibiotics. Patient will be admitted to [address] [place] [address]-- [address][phone]. ICD-9 : 595.0 ICD-10 : N30.00 09/10/2022 Visit Diagnosis Plan: Dehydration Discussion: See harjit mckinnon ICD-9 : 276.51 ICD-10 : E86.0 09/10/2022 Patient Education: Patient Medication Summary Completed 09/10/2022 Visit Diagnosis Plan: Acute cystitis Discussion: Start Macrobid 100mg bid x7 days. Continue to drink plenty of water. Urine sent for culture-- will notify of results. Recommend soft, bland diet for a few days. ICD-9 : 595.0 ICD-10 : N30.00 09/05/2022 Appointment: Marlene Staples WPtel: [phone] [phone] ACUTE ILLNESS 09/05/2022 Patient Education: Patient Medication Summary Completed 09/05/2022 Visit Diagnosis Plan: Cervicalgia Discussion: X-ray or dered. F/u with chiropractor as indicated. ICD-9 : 723.1 ICD-10 : M54.2 08/30/2022 Visit Diagnosis Plan: Degeneration of lumbar or lumbos acral intervertebral disc Discussion: X-ray ordered. F/u with chiropractor as indicated. Handicap placard renewal form filled out and given to patient. ICD-9 : 722.52 ICD-10 : M51.37 08/30/2022 Appointment: Marlene Staples WPtel: [phone] [phone] FOLLOW UP 08/30/2022 Patient Education: Patient Medication Summary Completed 08/30/2022 Visit Diagnosis Plan: Discussion: Stable Labs disc ussed 08/07/2022 Visit Diagnosis Plan: Essential (primary) hypertension Discussion: Stable ICD-9 : 401.9 ICD-10 : I10 08/07/2022 Visit Diagnosis Plan: Discussion: Update lipids 08/07/2022 Visit Diagnosis Plan: Stress at home Discussion: With 's health ICD-9 : V61.9 ICD-10 : F43.9 08/07/2022 Appointment: Jayna Vanessa WPtel: [phone] [phone] FOLLOW UP 08/07/2022 Visit Diagnosis Plan: Acute cystitis Discussion: Start Cipro 250mg bid x5 days-- discussed may need to extend longer as possibly early stage of pyelonephritis. Continue to push water. Small drop of urine sent for culture-- discussed if braden ble to run will have her repeat after completing antibiotic if still symptomatic. ICD-9 : 595.0 ICD-10 : N30.00 06/29/2022 Appointment: Marlene Staples WPtel: [phone] [phone] ACUTE ILLNESS 06/29/2022 Patient Education: ciprofloxacin HCl- OptimizeRX Coupon [id number] Completed 06/29/2022 Visit Diagnosis Plan: Depression Discussion: Increase Wellbutrin XL to 300mg po qAM Fwup 2 mos ICD-9 : 311 ICD-10 : F32.A 05/28/2022 Visit Diagnosis Plan: Hypothyroidism Discussion: Labs discussed Decrease levothyroxine to 150mcg 6 days a week and repeat thyroid lab in 2mos ICD-9 : 244.9 ICD-10 : E03.9 05/28/2022 Appointment: Jayna Vanessa WPtel: [phone] [phone] US FOLLOW UP 05/28/2022 Visit Diagnosis Plan: Hypothyroidism Discussion: Check thyroid labs ICD-9 : 244.9 ICD-10 : E03.9 05/10/2022 Visit Diagnosis Plan: Depression Discussion: Trial of Wellbutrin XL 150mg po qAM Denies suicidal ideation Fwup 2 weeks ICD-9 : 311 ICD-10 : F32.A 05/10/2022 Visit Diagnosis Plan: Fatigue Discussion: Check CBC, T SH, Free T4 ICD-9 : 780.79 ICD-10 : R53.83 05/10/2022 Visit Diagnosis Plan: Hyperglycemia Discussion: Check CMP and HbA1C ICD-9 : 790.29 ICD-10 : R73.9 05/10/2022 Appointment: Jayna Vanessa WPtel: [phone] [phone] US FOLLOW UP 05/10/2022 Visit Diagnosis Plan: Migraine, intractable Discussion : Toradol 30mg IM x1 given in clinic. Start Rizatriptan-- discussed on how to use and may repeat x1 dose 2 hours later. Restart propranolol for migraine prevention. Notify clinic if migraine not improving. ICD-9 : 346.91 ICD-10 : G43.919 04/18/2022 Appointment: [facility]el[facility] [phone] [facility] [facility] I[facility] 04/18/2022 Patient Education: propranolol- OptimizeRX Coupon [id number] Completed 04/18/2022 Appointment: Jayna Vanessa: [phone] [phone] [facility] INJECTION 04/05/2022 Appointment: Jayna Vanessa WPtel: [phone] [phone] US CANCELED 03/21/2022 Visit Diagnosis Plan: Acute sinusitis Discussion: Pred nisone Notify if worsening persists ICD-9 : 461.9 ICD-10 : J01.90 02/15/2022 Visit Diagnosis Plan: Bilateral temporomandibular join t disorder Discussion: Ice and prednisone If worsening will check ESR ICD-9 : 524.60 ICD-10 : M26.603 02/15/2022 Visit Diagnosis Plan: Allergic rhinitis Discussion: Co joe desai xyzal ICD-9 : 477.9 ICD-10 : J30.9 02/15/2022 Appointment: Jayna Vanessa WPtel: [phone] [phone] [place] ACUTE ILLNESS 02/15/2022 Patient Education: prednisone- OptimizeRX Coupon [id number] https://www.PeerSpace/samplemd/resources/getResource/61/[email or web address]-uk Completed 02/15/2022 Visit Diagnosis Plan: Hypothyroidism, unspecified Disc ussion: Stable ICD-9 : 244.9 ICD-10 : E03.9 02/06/2022 Visit Diagnosis Plan: Encounter for [facility] adult medical examination without abnormal findings Discussion: Mediterranean diet Combinati on of cardio and weight bearing exercise Lab discussed Sees optometry next week Mammogram up to date Follow Up: 3 months Discussion: Mediterranean diet Combination of cardio and weight bearing exercise Lab discussed Sees optometry next week Mammogram up to date ICD-9 : V70.0 ICD-10 : Z00.00 02/06/2022 Visit Diagnosis Plan: Essential (primary) hypertension Discussion: Stable ICD-9 : 401.9 ICD-10 : I10 02/06/2022 Visit Diagnosis Plan: Chronic obstructive pulmonary di sease, unspecified Discussion: Saw pulmonology last week States they want Eosinophil level checked with next flare-up/URI ICD-9 : 496 ICD-10 : J44.9 02/06/2022 Appointment: Jayna Vanessa WPtel: [phone] [phone] Annual Well Visit 02/06/2022 Care Plan: Annual depression screening, 15 minutes 02/06/2022 Visit Diagnosis Plan: 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 Patient declines- will get stat CT of the head, cbc, cmp, and ESR and fwup with results [facility] sample given ICD-9 : 346.03 ICD-10 : G43.111 02/01/2022 Appointment: Latasha Anand WPtel: [phone] [phone] ACUTE ILLNESS 02/01/2022 Patient Education: Patient Medication Summary Completed 02/01/2022 Visit Diagnosis Plan: Cough Discussion: Finish Breztri Continue sinulair for full 30 day supply Notify if worsening ICD-9 : 786.2 ICD-10 : R05.9 11/29/2021 Visit Diagnosis Plan: Diarrhea Discussion: Add flagyll Stool studies if persists--patient will let us know in 1 week how doing ICD-9 : 787.91 ICD-10 : R19.7 11/29/2021 Appointment: Jayna Vanessa WPtel: [phone] [phone] US FOLLOW UP 11/29/2021 Visit Diagnosis Plan: Diarrhea Discussion: C Diff nega tive Treat with diflucan and Restora-RX Fwup 1 week ICD-9 : 787.91 ICD-10 : R19.7 11/22/2021 Visit Diagnosis Plan: Post-viral cough syndrome Discus joaquín: Change albuterol to Breztri 2p BID Add singulair 10mg po q HS ICD-9 : 786.2 ICD-10 : R05.8 11/22/2021 Appointment: Jayna Vanessa WPtel: [address] [place], [place] [phone] ACUTE ILLNESS 11/22/2021 Patient Education: Carl Coats [id number] https://www.PeerSpace/samplemd/resources/getResource/61/[email or web address] Completed 11/22/2021 Visit Diagnosis Plan: Diarrhea of presumed infectious origin Discussion: Will check for c-diff due to recent antibiotics and foul smelling diarrhea ICD-9 : 009.3 ICD-10 : R19.7 11/21/2021 Visit Diagnosis Plan: History of recent pneumonia Disc ussion: Check cbc, cmp, ESR, and cxr now ICD-9 : V12.61 ICD-10 : Z87.01 11/21/2021 Appointment: Latasha Anand WPtel: [address] [place] [address] ACUTE ILLNESS 11/21/2021 Patient Education: Patient Medication Summary Completed 11/21/2021 Visit Diagnosis Plan: Pneumonia Discussion: Finish all abx and continue albuterol Fwup next week ICD-9 : 486 ICD-10 : J18.9 11/09/2021 Visit Diagnosis Plan: Serous otitis media Discussion: Kenalog 40mg with Dexamethasone 2mg IM now ICD-9 : 381.4 ICD-10 : H65.90 11/09/2021 Appointment: Jayna Vanessa WPtel: [address] [place], [place] [address] [facility] Follow Up 11/09/2021 Visit Diagnosis Plan: Pneumonia Discussion: Admit to h ospital ICD-9 : 486 ICD-10 : J18.9 10/31/2021 Appointment: Jayna Vanessa WPtel: [address] [place], [place] [phone] FOLLOW UP 10/31/2021 Visit Diagnosis Plan: Nausea Discussion: Has zofran to use prn ICD-9 : 787.02 ICD-10 : R11.0 10/30/2021 Visit Diagnosis Plan: Vertigo Discussion: Scopolamine patch ICD-9 : 780.4 ICD-10 : R42 10/30/2021 Visit Diagnosis Plan: Pneumonia Discussion: Had negati ve home COVID tests x2 Influenza A and B negative Rocephin 1gm IM now Refuses admission Use albuterol MDI 2p q4hrs prn Fwup tomorrow To ER if worsening ICD-9 : 486 ICD-10 : J18.9 10/30/2021 Visit Diagnosis Plan: Discussion: Has zofran to us e prn 10/30/2021 Appointment: Jayna Vanessa WPtel: [phone] [phone] US ACUTE ILLNESS 10/30/2021 Visit Diagnosis Plan: Cervicalgia Discussion: Had x-ra ys done Kenalog 40mg IM now Baclofen prn Mobic for 1 week Topical muscle rube Moist heat and stretches shown Has PT sessions scheduled next week so will add in therapy for neck ICD-9 : 723.1 ICD-10 : M54.2 09/05/2021 Appointment: Jayna Vanessa WPtel: [phone] [phone] ACUTE ILLNESS 09/05/2021 Visit Diagnosis Plan: 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 Currently taking hydroxycholoroquine. Discussed that intraarticular injection of rt 4th PIP would likely be most beneficial- states she has not seen rheum in awhile, but will see about following up if not improving with prednisone. ICD-9 : 716.94 ICD-10 : M19.041 08/24/2021 Appointment: Latasha Anand WPtel[facility] [phone] [facility] AC[facility] I[facility]NESS 08/24/2021 Patient Education: Patient Medication Summary Completed 08/24/2021 Patient Education: prednisone- OptimizeRX Coupon [id number] Completed 08/24/2021 Visit Plan: Supportive care. Rest, Fluid s, Tylenol/Motrin prn fever or bodyaches. Notify if worsening symptoms. 07/04/2021 Visit Diagnosis Plan: Contact with and ( suspected) exposure to other viral communicable diseases Discussion: Covid PCR swab done and sent to lab, will notify with results. ICD-9 : V01.79 ICD-10 : Z20.828 07/04/2021 Visit Diagnosis Plan: Upper respiratory infection Disc ussion: Flu negative. Supportive care, rest, fluids, tylenol/ibuprofen, cool-mist humidifier, throat lozenges prn, warm/cool fluids. Recommended flonase for pnd/congestion. Decadron sent for cough/drainage. Call clinic for worsening or concerns. Go to ED for severe s/s. ICD-9 : 465.9 ICD-10 : J06.9 07/04/2021 Appointment: Latasha Anand WPtel: [phone] [phone] US ACUTE ILLNESS 07/04/2021 Patient Education: Patient Medication Summary Completed 07/04/2021 Patient Education: Patient Medication Summary Completed 07/04/2021 Appointment: Latasha Anand WPtel: [phone] [phone] US NO SHOW 07/03/2021 Appointment: Latasha Anand WPtel: [phone] [phone] US patients issue resolved so moved to dr's schedule for his hospital [facility] (km) CANCELED 03/29/2021 Appointment: Jayna Vanessa WPtel: [phone] [phone] US INJECTION 03/29/2021 Visit Diagnosis Plan: Vasovagal episode Discussion: Mo nitored in office. Stable, feeling better- sent to AV for 1L NS IV, cbc, and cmp. ICD-9 : 780.2 ICD-10 : R55 03/01/2021 Patient Education: Patient Medication Summary Completed 03/01/2021 Visit Diagnosis Plan: Sebaceous cyst of right axilla D iscussion: Pustule/cyst drained- see note. F/U for concerns. ICD-9 : 706.2 ICD-10 : L72.3 02/08/2021 Appointment: Kika Latasha WPtel: [phone] [phone] ACUTE ILLNESS 02/08/2021 Patient Education: Patient Medication Summary Completed 02/08/2021 Visit Diagnosis Plan: Contact dermatitis Discussion: T opical TAC and prednisone Notify if persists or worsens ICD-9 : 692.9 ICD-10 : L25.9 01/19/2021 Appointment: Jayna Vanessa WPtel: [phone] [phone] ACUTE ILLNESS 01/19/2021 Patient Education: prednisone- OptimizeRX Coupon [id number] Completed 01/19/2021 Patient Education: triamcinolone acetonide- OptimizeRX Coupon [id number] Completed 01/19/2021 Visit Diagnosis Plan: Hypothyroidism, unspecified Disc ussion: Increase levothyroxine to 150mcg po daily and recheck TSH and free T4 in 2mos ICD-9 : 244.9 ICD-10 : E03.9 01/03/2021 Visit Diagnosis Plan: Essential (primary) hypertension Discussion: Stable ICD-9 : 401.9 ICD-10 : I10 01/03/2021 Visit Diagnosis Plan: Encounter for [facility] adult medical examination without abnormal findings Discussion: Mediterranean diet Combinati on of cardio and weight bearing exercise Had Covid vaccines Lab discussed ICD-9 : V70.9 ICD-10 : Z00.00 01/03/2021 Visit Diagnosis Plan: Chronic obstructive pulmonary di sease, unspecified Discussion: Following with pulmonology ICD-9 : 496 ICD-10 : J44.9 01/03/2021 Appointment: Jayna Vanessa WPtel: [phone] [phone] Annual Well Visit 01/03/2021 Patient Education: levothyroxine- OptimizeRX Coupon [id number] https://www.PeerSpace/samplemd/resources/getResource/61/[email or web address]-f6 Completed 01/03/2021 Visit Diagnosis Plan: COPD exacerbation Discussion: Sa mple of breztri given. Prednisone 40 mg x 5 days for exacerbation- increased cough, shortness of breath, and phlegm. Promethazine DM cough syrup sent d/t frequent hacking cough that interrupts sleep. F/U for no improvement or any concerns. ICD-9 : 491.21 ICD-10 : J44.1 11/29/2020 Appointment: Latasha Anand WPtel: [phone] [phone] ACUTE ILLNESS 11/29/2020 Patient Education: Patient Medication Summary Completed 11/29/2020 Patient Education: prednisone- OptimizeRX Coupon [id number] Completed 11/29/2020 Patient Education: promethazine-DM- OptimizeRX Coupon [id number] Completed 11/29/2020 Visit Diagnosis Plan: Sinusitis Discussion: Will start doxycycline (pcn allergy). Sinus rinses. Tylenol/nsaids for headache/pain. Return to clinicif not improving/concerns. ICD-9 : 473.9 ICD-10 : J32.9 09/29/2020 Appointment: Latasha Anand WPtel: [phone] [phone] ACUTE ILLNESS 09/29/2020 Patient Education: Patient Medication Summary Completed 09/29/2020 Patient Education: doxycycline hyclate- OptimizeRX Coupon [id number] Completed 09/29/2020 Visit Diagnosis Plan: Other seasonal allergic rhinitis Discussion: Will send Lalita-D to help with allergies and dry up secretions. Increase fluid intake. ICD-9 : 477.9 ICD-10 : J30.2 09/19/2020 Visit Diagnosis Plan: Chronic bronchitis Discussion: S ample of Trelegy inhaler given. ProAir inhaler refilled. F/u for no improvement/worsening or concerns. ICD-9 : 491.9 ICD-10 : J42 09/19/2020 Appointment: Latasha Anand WPtel: [phone] [phone] ACUTE ILLNESS 09/19/2020 Patient Education: Patient Medication Summary Completed 09/19/2020 Patient Education: ProAir HFA- OptimizeRX Coupon [id number] Completed 09/19/2020 Visit Diagnosis Plan: Right-sided tinnitus Discussion: Continue flonase and zyrtec Flushed tiny piece of wax out of way and will fwup with 1 week of ear drops If persists then will see Dr. Byrnes She is going for allergy shot today so will see if that makes a difference as well ICD-9 : 388.30 ICD-10 : H93.11 08/10/2020 Appointment: Jayna Vanessa WPtel: [address] [place], [place] [phone] FOLLOW UP 08/10/2020 Patient Education: neomycin-polymyxin B-dexameth- Opti mizeRX Coupon [id number] https://www.PeerSpace/TutorDudes/resources/getResource/61/fe645i66-r08o-7p78-oj Completed 08/10/2020 Visit Diagnosis Plan: Dysfunction of right eustachian tube Discussion: Naylay.ut video visit done Increase zyrtec to BID Increase flonase to BID Add prednisone To office at end of week to assess otoscope exam if persists ICD-9 : 381.81 ICD-10 : H69.81 08/01/2020 Appointment: Jayna Vanessa WPtel: [address] [place], [place] [phone] TELEMEDICINE 08/01/2020 Patient Education: prednisone- OptimizeRX Coupon [id number] https://www.PeerSpace/TutorDudes/resources/getResource/61/[email or web address]-[email or web address] Completed 08/01/2020 Visit Diagnosis Plan: Pyelonephritis Discussion: Finis maría all abx Push fluids Check lab and repeat UA in 5 days--CBC, CMP, ESR ICD-9 : 590.80 ICD-10 : N12 07/13/2020 Appointment: Jayna Vanessa WPtel: [phone] [phone] Hospital Follow Up 07/13/2020 Visit Diagnosis Plan: Acute gastroenteritis Discussion : Telephone visit completed Clear liquid diet next 24-48hrs Flagyl to cover for colitis/diverticulitis Zofran prn Notify or to ER if worsening ICD-9 : 558.9 ICD-10 : K52.9 07/05/2020 Appointment: Jayna Vanessa WPtel: [phone] [phone] TELEMEDICINE 07/05/2020 Patient Education: ondansetron HCl- OptimizeRX Coupon [id number] https://www.PeerSpace/TutorDudes/resources/getResource/61/z5z61ka1-5e7r-124s-4t Completed 07/05/2020 Visit Diagnosis Plan: Metabolic syndrome Discussion: U pdate CMP, HBa1c ICD-9 : 277.7 ICD-10 : E88.81 06/22/2020 Visit Diagnosis Plan: Uvyoq-5-chhcrehsfid deficiency D iscussion: Following with pulmonology ICD-9 : 273.4 ICD-10 : E88.01 06/22/2020 Visit Diagnosis Plan: Hypothyroidism, unspecified Disc ussion: Stable Update TSH, Free T4 ICD-9 : 244.9 ICD-10 : E03.9 06/22/2020 Visit Diagnosis Plan: Mixed hyperlipidemia Discussion: Update lipids ICD-9 : 272.4 ICD-10 : E78.2 06/22/2020 Visit Diagnosis Plan: Essential hypertension Discussio n: Stable ICD-9 : 401.9 ICD-10 : I10 06/22/2020 Appointment: Jayna Vanessa WPtel: [address] [place], [place] [phone] FOLLOW UP 06/22/2020 Visit Diagnosis Plan: Urinary tract infection Discussi on: Macrobid Diflucan Push water Notify if worsens ICD-9 : 599.0 ICD-10 : N39.0 05/17/2020 Appointment: Jayna Vanessa WPtel: [facility][note 3]4 [phone] ACUTE ILLNESS 05/17/2020 Patient Education: fluconazole- OptimizeRX Coupon [phone] [id number] https://www.TutorDudes.CIQUAL/samplemd/resources/getResource/61/[email or web address]-u7s8-0l0r-0f Completed 05/17/2020 Visit Diagnosis Plan: Right pulmonary embolus Discussi on: Continue eliquis at 5mg po BID Has appointments pending with pulmonology and hematology Fwup after visits with both of these specialists ICD-9 : 415.19 ICD-10 : I26.99 03/14/2020 Appointment: Jayna Vanessa WPtel: [address] [place], [place] [phone] [facility] 03/14/20 on cell -- home phone had busy signal Hospital Follow Up 03/14/2020 Appointment: Jayna Vanessa WPtel: [address] [place], [place] [phone] I schedule patient by mistake ddo Scheduled in E RROR 03/08/2020 Visit Diagnosis Plan: Pneumonia Discussion: Rocephin a nd Solumedrol ICD-9 : 486 ICD-10 : J18.9 03/07/2020 Visit Diagnosis Plan: COVID-19 Discussion: Patient is 24 days out from positive test results ICD-9 : 079.89 ICD-10 : U07.1 03/07/2020 Visit Diagnosis Plan: Dyspnea Discussion: Continue sym bicort and start Ventolin 2p QID as ordered Check CT angiogram of chest ICD-9 : 786.09 ICD-10 : R06.00 03/07/2020 Appointment: Jayna Vanessa WPtel: [address] [place], [place] [phone] ACUTE ILLNESS 03/07/2020 Care Plan: CT THORAX W/DYE LOINC : 48835 -6 Pending 03/07/2020 Appointment: Jayna Vanessa WPtel: [address] [place], [place] [phone] NO SHOW - FORGIVEN 03/02/2020 Visit Diagnosis Plan: Upper respiratory infection Disc ussion: patient's covid test was neg from several weeks ago. proair refilled to take as needed. medrol pack prescribed to cover for allergies since her symptoms began after being in [facility]. however, instructed patient that she needs to be checked again for coronavirus due to severity of her symptoms. [place] so [facility]. call ofice with new or worsening symptoms, otherwise push fluids. ICD-9 : 465.9 ICD-10 : J06.9 02/11/2020 Appointment: Genesis Fernández [address] [id number] 02/11/2020 Patient Education: ProAir HFA- OptimizeRX Coupon [id number] Completed 02/11/2020 Patient Education: Medrol (Isaiah)- OptimizeRX Coupon [id number] Completed 02/11/2020 Visit Diagnosis Plan: Hypothyroidism, unspecified Disc ussion: Recheck thyroid lab in 6mos ICD-9 : 244.9 ICD-10 : E03.9 12/21/2019 Visit Diagnosis Plan: Epigastric pressure Discussion: Referral for EGD--history of hiatal hernia repair ICD-9 : 789.06 ICD-10 : R10.13 12/21/2019 Visit Diagnosis Plan: Mixed hyperlipidemia Discussion: Recheck fasting lipids in 6mos ICD-9 : 272.4 ICD-10 : E78.2 12/21/2019 Visit Diagnosis Plan: Essential (primary) hypertension Discussion: Stable ICD-9 : 401.9 ICD-10 : I10 12/21/2019 Visit Diagnosis Plan: Encounter for [facility] adult medical examination without abnormal findings Discussion: Mediterranean diet Combinati on of cardio and weight bearing exercise Lab discussed Last colonoscopy 3 years ago ICD-9 : V70.9 ICD-10 : Z00.00 12/21/2019 Appointment: Jayna Vanessa WPtel: [phone] [facility] Annual Well Visit 12/21/2019 Care Plan: Referral Order SNOMED-CT : [id number] Pending 12/21/2019 Visit Diagnosis Plan: Dermatitis Discussion: Doxy.me v ideo visit done Cover with Prednisone taper Use Zyrtec 10mg po q AM BID ICD-9 : 692.9 ICD-10 : L30.9 09/29/2019 Appointment: Jayna Vanessa WPtel: [address] [place], [place] [phone] US TELEMEDICINE 09/29/2019 Patient Education: prednisone- OptimizeRX Coupon [id number] https://www.PeerSpace/TutorDudes/resources/getResource/61/[email or web address] Completed 09/29/2019 Visit Diagnosis Plan: Bone spur of right foot Discussi on: Patient currently scheduled for surgery on September 24 but discussed that may be cancelled with COVID- 19 pandemic ICD-9 : 726.91 ICD-10 : M77.51 09/14/2019 Visit Diagnosis Plan: Recurrent UTI Discussion: Letha mendes on Bactrim Will notify surgeon that patient had recent MRSA UTI ICD-9 : 599.0 ICD-10 : N39.0 09/14/2019 Appointment: Jayna Vanessa WPtel: [address] [place], [place] [phone] US TELEMEDICINE 09/14/2019 Appointment: Jayna Vanessa WPtel: [address] [place], [place] [phone] US LAB 09/11/2019 Appointment: Jayna Vanessa WPtel: [address] [place], [place] [phone] US 09/09/2019 1210--per Ally patient was to only have 1 injection, reculture urine on 09/11/19 (km) CANCELED 09/09/2019 Appointment: Jayna Vanessa WPtel: [address] [place], [place] [phone] US INJECTION 09/08/2019 Appointment: Jayna Vanessa WPtel: [address] [place], [place] [phone] US INJECTION 09/07/2019 Visit Diagnosis Plan: Urinary frequency Discussion: ur ine culture sent. cipro prescribed to take as directed to cover uti and diverticulitis since patient has hx of both. push fluids. instructed to go to ED with new or worsening symptoms. if urine culture neg, will proceed with medications for OAB. patient verbalized understanding. ICD-9 : 788.41 ICD-10 : R35.0 09/02/2019 Appointment: Genesis Fernández [address] [place] [address] ACUTE ILLNESS 09/02/2019 Visit Diagnosis Plan: Sinusitis Discussion: instructed to start flonase daily and zyrtec daily. if no improvement next week, call clinic and may need further directions. instructed to use saline eye drops as needed to eyes to assist with dryness. ICD-9 : 473.9 ICD-10 : J32.9 07/09/2019 Appointment: Genesis Fernández [address] [place] [address] ACUTE ILLNESS 07/09/2019 Visit Diagnosis Plan: UTI (urinary tract infection) Di scussion: urine culture sent off. will start on macrobid due to symptoms. instructed to push fluids and chemo tomorrow with worsening symptoms. ICD-9 : 599.0 ICD-10 : N39.0 04/15/2019 Appointment: Jayna Vanessa WPtel: [phone] [phone] [facility] INJECTION 04/15/2019 Appointment: Genesis Fernández [address] [place], [place] [phone] ACUTE ILLNESS 04/15/2019 Visit Diagnosis Plan: Pain in right leg Discussion: ke nalog/dexa given in office. continue with flexeril prn. PT was ordered for patient due to chronic issues. call office with worsening symptoms and may need imaging. ICD-9 : 729.5 ICD-10 : M79.604 04/07/2019 Appointment: Genesis Fernández [address] [place], [place] [phone] ACUTE ILLNESS 04/07/2019 Visit Diagnosis Plan: Diverticulitis of large intestine without perforation or abscess without bleeding Discussion: Patient will call when she g ets home and verify which antibiotics she has left--needs at least another week on flagyl and thinks she only took 1 week on that ICD-9 : 562.11 ICD-10 : K57.32 03/25/2019 Appointment: Jayna Vanessa WPtel: [phone] [place] [phone] FOLLOW UP 03/25/2019 Visit Diagnosis Plan: Cystitis Discussion: Bactrim and culture urine ICD-9 : 595.9 ICD-10 : N30.90 03/18/2019 Visit Diagnosis Plan: Abdominal pain Discussion: Cover with flagyl for colitis Crosby diet To ER this weekend if worsening Fwup 1 week ICD-9 : 789.00 ICD-10 : R10.9 03/18/2019 Appointment: Jayna Vanessa WPtel: [phone] [phone] ACUTE ILLNESS 03/18/2019 Visit Diagnosis Plan: Urinary tract infection, site no t specified Discussion: patient didn't return for follow up urine culture. urine culture obtained in clinic but will start on cipro to cover for uti and diverticulitis. ICD-9 : 599.0 ICD-10 : N39.0 01/26/2019 Visit Diagnosis Plan: Generalized abdominal pain Discu ssion: cipro and flagyl prescribed to take as directed. BRAT diet and push fluids. cbc, cmp also ordered to rule out any electrolyte imbalance. will have patient f/u 1 week. instructed to call with worsening symptoms this week and if worsening, will need to go to hospital. patient verbalized understanding. discussed with patient that she may need an updated colonoscopy as well due to recurrent issues. last one was 2017. ICD-9 : 789.07 ICD-10 : R10.84 01/26/2019 Appointment: Genesis Fernández [address] [place], [place] [id number] ACUTE ILLNESS 01/26/2019 Appointment: Jayna Vanessa WPtel: [phone] [phone] US CANCELED 01/12/2019 Visit Diagnosis Plan: Mild intermittent asthma with (a cute) exacerbation Discussion: Kenalog 40mg IM now Prednisone stating tomorrow Start Doxycycline tonight Continue SVNs with duoneb q4hrs To ER this weekend if worsening Call Saturday on how doing ICD-9 : 466.0 ICD-10 : J45.21 01/08/2019 Appointment: Jayna Vanessa WPtel: [phone] [phone] FOLLOW UP 01/08/2019 Patient Education: prednisone- Opt[employer]RX Coupon [phone] [email or web address]://[email or web address]/[email or web address]/resources/getResource/61/[email or web address] Completed 01/08/2019 Visit Diagnosis Plan: Mild intermittent asthma with (a cute) exacerbation Discussion: Solumedrol 125mg IM SVN with duoneb given Continue albuterol q4hrs CXR now Recheck tomorrow ICD-9 : 466.0 ICD-10 : J45.21 01/06/2019 Appointment: Jayna Vanessa WPtel: [phone] [phone] ACUTE ILLNESS 01/06/2019 Visit Diagnosis Plan: Encounter for screening for roel gnant neoplasm of colon Discussion: positive for ob. will order ct abd/pelvis due to other findings and discussed with patient that may need to proceed with updated colonoscopy. patient verbalized understanding. ICD-9 : V76.51 ICD-10 : Z12.11 12/11/2018 Visit Diagnosis Plan: Encounter for [facility] adult medical examination with abnormal findings Discussion: labs discussed with patient. ICD-9 : V70.0 ICD-10 : Z00.01 12/11/2018 Visit Diagnosis Plan: Generalized abdominal pain Discu ssion: urine obtained and will send for culture to rule out infection as cause of symptoms. however, based on findings, will order ct of abd/pelvis to be completed. instructed to stick with bland diet until test complete and increase fluid intake. ICD-9 : 789.07 ICD-10 : R10.84 12/11/2018 Visit Diagnosis Plan: Acute vaginitis Discussion: vagi nal culture obtained to assess for infection as cause of abomdinal/pelvic pain ICD-9 : 616.10 ICD-10 : N76.0 12/11/2018 Appointment: [facility]esis Fern[facility] [facility] Visit 12/11/2018 Care Plan: RML ASSAY THYROID STIM HORMONE Pending 12/04/2018 Care Plan: RML ASSAY OF FREE THYROXINE Pe nding 12/04/2018 Care Plan: RML A1C HPLC LOINC : 71279-0 Pending 12/04/2018 Care Plan: RML LIPID PANEL LOINC : 79147 -1 Pending 12/04/2018 Care Plan: RML COMPREHEN METABOLIC PANEL LOINC : 40225-3 Pending 12/04/2018 Care Plan: QUEST CBC (INCLUDES DIFF/PLT) LOINC : 43179-8 Pending 12/04/2018 Visit Diagnosis Plan: Benign paroxysmal vertigo, bilat eral Discussion: Meclizine Vestibular Exercises To ER if worsens or develops neurological symptoms or will need CT scan if persists/worsens ICD-9 : 386.11 ICD-10 : H81.13 10/30/2018 Appointment: Jayna Vanessa WPtel: [address] [place], [place] [phone] ACUTE ILLNESS 10/30/2018 Patient Education: VESTIBULAR EXCERCISES Completed 10/30/2018 Patient Education: meclizine- [employer] Coupon [id number] Completed 10/30/2018 Appointment: Jayna Vanessa WPtel: [facility][note 3]9 [phone] US canceled due to huband going into hospital CANCE LED 10/28/2018 Visit Diagnosis Plan: Other seasonal allergic rhinitis Discussion: Refill on chlorpheneramine ICD-9 : 477.9 ICD-10 : J30.2 10/07/2018 Visit Diagnosis Plan: Acute bronchitis, unspecified Di scussion: Kenalog and dex 40:4 administered in clinic. Patient tolerated well. Doxycycline- start today. Advise probiotic while on medication. Humidifier. Fluids and rest encouraged. Albuterol inhaler as needed for cough and wheezing. FU 3-5 days with no improvement in symptoms. ICD-9 : 466.0 ICD-10 : J20.9 10/07/2018 Visit Diagnosis Plan: Cough Discussion: Tessalharjit perle s- as needed for cough ICD-9 : 786.2 ICD-10 : R05 10/07/2018 Appointment: Stacey Feng [facility] [address] ACUTE ILLNESS 10/07/2018 Patient Education: doxycycline hyclate- OptimizeRX Hansa jerald [id number] https://www.PeerSpace/samplemd/resources/getResource/61/[email or web address] Completed 10/07/2018 Care Plan: RML ASSAY OF FREE THYROXINE Pe nding 07/31/2018 Care Plan: RML ASSAY THYROID STIM HORMONE Pending 07/31/2018 Visit Diagnosis Plan: Pain in unspecified joint Discus joaquín: Check arthritis panel Podiatry had recommended possible rheumatology consult ICD-9 : 719.40 ICD-10 : M25.50 06/23/2018 Visit Diagnosis Plan: Other specified di sorders of bone density and structure, unspecified site Discussion: Check bone density ICD-9 : 733.90 ICD-10 : M85.80 06/23/2018 Appointment: Jayna Vanessa WPtel: [address] [place], [place] [phone] FOLLOW UP 06/23/2018 Appointment: Jayna Vanessa WPtel: [address] [place], [place] [phone] ER Follow UP 01/27/2018 Visit Diagnosis Plan: Hypothyroidism, unspecified Disc ussion: Lab discussed Increase Levothyroxine to 175mcg daily then recheck level in 6 weeks Follow Up: 6 weeks ICD-9 : 244.9 ICD-10 : E03.9 01/16/2018 Visit Diagnosis Plan: Mixed hyperlipidemia Discussion: Defers statin meds ICD-9 : 272.4 ICD-10 : E78.2 01/16/2018 Appointment: Jayna Vanessa WPtel: [address] [place] [address] FOLLOW UP 01/16/2018 Patient Education: Patient Medication Summary Completed 01/16/2018 Patient Education: Patient Medication Summary Completed 01/15/2018 Care Plan: RML COMPREHEN METABOLIC PANEL LOINC : 56195-6 Pending 01/15/2018 Care Plan: RML ASSAY THYROID STIM HORMONE Pending 01/15/2018 Care Plan: RML ASSAY OF FREE THYROXINE Pe nding 01/15/2018 Care Plan: RML LIPID PANEL LOINC : 41437 -1 Pending 01/15/2018 Care Plan: CBC Pending 01/15/2018 Care Plan: RML A1C HPLC LOINC : 16437-4 Pending 01/15/2018 Appointment: Jayna Vanessa WPtel: [address] [place], [place] [address] US CANCELED 12/26/2017 Appointment: Jayna Vanessa WPtel: [address] [place] [address] US CANCELED 10/28/2017 Visit Diagnosis Plan: Cervicalgia Discussion: xray ord ered of cervical spine and right shoulder. 40 mg kenalog/15 mg toradol prescribed to assist with pain. medrol dose pack prescribed to start tomorrow. instructed patient that if she d evelops worsening pain or no improvement, call or rtc. ICD-9 : 723.1 ICD-10 : M54.2 10/16/2017 Appointment: Genesis Fernández [address] [place] [address] ACUTE ILLNESS 10/16/2017 Patient Education: Patient Medication Summary Completed 10/16/2017 Care Plan: X-RAY EXAM NECK SPINE 4/5VWS cervical LOINC : 56145-0 Pending 10/16/2017 Visit Diagnosis Plan: Headache Discussion: Stat CT of head Dilated eye exam ICD-9 : 784.0 ICD-10 : R51 09/12/2017 Visit Diagnosis Plan: Dizziness and giddiness Discussi on: Check CBC,TSH, Free T4 now ICD-9 : 780.4 ICD-10 : R42 09/12/2017 Appointment: Jayna Vanessa WPtel: [address] [place], [place] [address] ACUTE ILLNESS 09/12/2017 Patient Education: Patient Medication Summary Completed 09/12/2017 Care Plan: CT HEAD/BRAIN W/O DYE LOINC : 74563-1 Pending 09/12/2017 Visit Diagnosis Plan: Cough Discussion: discussed cxra y and sputum results with patient and how they are negative for bacteria. patient restarted on her PPI to cover possiblity of GERD causing cough. 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 rtc with any new or worsening symptoms but continue with inhaler and nebulizer treatments as needed. ICD-9 : 786.2 ICD-10 : R05 08/20/2017 Appointment: Genesis Fernández [address] [place] [address] FOLLOW UP 08/20/2017 Patient Education: Patient Medication Summary Completed 08/20/2017 Visit Diagnosis Plan: COUGH Discussion: Check stat CXR Check Sputum culture ICD-9 : 786.2 ICD-10 : R05 08/13/2017 Appointment: Jayna Vanessa WPtel: [address] [place], [place] [address] ACUTE ILLNESS 08/13/2017 Patient Education: Patient Medication Summary Completed 08/13/2017 Visit Plan: Supportive care. Rest, Fluid s, Tylenol/Motrin prn fever or bodyaches. Notify if worsening symptoms. 07/29/2017 Visit Diagnosis Plan: Acute bronchospasm Discussion: T relagy 1p daily Proair 2p TID Rest/Fluids Luis Allen ICD-9 : 519.11 ICD-10 : J98.01 07/29/2017 Visit NOS Plan: Plan Notes: Supportive care. Rest, Fluids... 07/29/2017 Appointment: Jayna Vanessa WPtel: [facility][note 3][address] [phone] ACUTE ILLNESS 07/29/2017 Patient Education: Patient Medication Summary Completed 07/29/2017 Visit Diagnosis Plan: Influenza due to i dentified novel influenza A virus with other respiratory manifestations Discussion: positive for influneza a. supportive care with increased fluids and rest. instructed to perform deep breathing exercises at home to prevent pneumonia and discussed risk of secondary infections. prednisone and albuterol inhaler prescribed to assist with symptom management. discussed length of symptoms and severity. instructed to not be in public places until saturday. instructed to call if new or worsening symptoms or go to ED if after hours. ICD-9 : 488.02 ICD-10 : J09.X2 07/25/2017 Appointment: Genesis Fernández [address] ACUTE ILLNESS 07/25/2017 Patient Education: Patient Medication Summary Completed 07/25/2017 Visit Diagnosis Plan: Pain in unspecified joint Discus joaquín: With recent respiratory illness as well as history of tick exposure will cover with doxycyline and prednisone taper--patient will let us know at end of treatment if is resolved, if not will get bloodwork ICD-9 : 719.49 ICD-10 : M25.50 06/10/2017 Appointment: Jayna Vanessa WPtel: [address] [place], [place] [phone] ACUTE ILLNESS 06/10/2017 Patient Education: Patient Medication Summary Completed 06/10/2017 Appointment: Jayna Vanessa WPtel: [address] [place], [place] [phone] Does not need appointment CANCELED 2016 Appointment: Jayna Vanessa WPtel: [address] [place], [place] [phone] US CANCELED 05/30/2017 Visit Diagnosis Plan: Acute bronchitis, unspecified Di scussion: prednisone, zpack and tessalon perles prescribed to assist with symptoms. call or RTC if no improvement. humidifier at night. hydrate well and rest. discussed side effects from prednisone including increased blood sugars and instructed to monitor. ICD-9 : 490 ICD-10 : J20.9 05/28/2017 Appointment: Genesis Fernández 504 [facility] ACUTE ILLNESS 05/28/2017 Patient Education: Patient Medication Summary Completed 05/28/2017 Visit Diagnosis Plan: Type 2 diabetes mellitus without complications Discussion: Continue current meds accuchecks daily ICD-9 : 250.00 ICD-10 : E11.9 04/04/2017 Visit Diagnosis Plan: Encounter for [facility] adult medical examination without abnormal findings Discussion: Flu and Pneumovax given Mamm ogram ordered Lab discussed ICD-9 : V70.9 ICD-10 : Z00.00 04/04/2017 Appointment: Jayna Vanessa WPtel: [phone] [phone] Annual Well Visit 04/04/2017 Patient Education: Patient Medication Summary Completed 04/04/2017 Care Plan: MAMMOGRAM SCREENING LOINC : 2 6347-5 Pending 04/04/2017 Patient Education: Patient Medication Summary Completed 03/21/2017 Care Plan: RML COMPREHEN METABOLIC PANEL LOINC : 15152-0 Pending 03/21/2017 Care Plan: RML ASSAY THYROID STIM HORMONE Pending 03/21/2017 Care Plan: RML ASSAY OF FREE THYROXINE Pe nding 03/21/2017 Care Plan: CBC Pending 03/21/2017 Care Plan: RML A1C HPLC LOINC : 16471-5 Pending 03/21/2017 Visit Diagnosis Plan: Mixed hyperlipidemia Discussion: Continue current meds Follow Up: 6 months ICD-9 : 272.4 ICD-10 : E78.2 11/28/2016 Visit Diagnosis Plan: Hypothyroidism, unspecified Disc ussion: Continue current dose ICD-9 : 244.9 ICD-10 : E03.9 11/28/2016 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: Continue weekly injections ICD-9 : 273.4 ICD-10 : E88.01 11/28/2016 Visit Diagnosis Plan: Sebaceous cyst Discussion: Emily daniel eanadine Discussed removal ICD-9 : 706.2 ICD-10 : L72.3 11/28/2016 Appointment: Jayna Vanessa WPtel: [phone] [phone] 6/6 rang and rang on home phone and mobile confirmed~sl FOLLOW UP 11/28/2016 Patient Education: Patient Medication Summary Completed 11/28/2016 Patient Education: Patient Medication Summary Completed 11/20/2016 Referral: Tom Mcrae WPtel: [address] 440 [id number] [place] Referral Initiated 07/05/2016 Visit Plan: Start with CT abdomen/pelvis Will need EGD and Colonoscopy so will refer to Dr. Deffenbaugh Obtain most recent lab results 06/05/2016 Appointment: Jayna Vanessa WPtel: [phone] [phone] ACUTE ILLNESS 06/05/2016 Patient Education: Patient Medication Summary Completed 06/05/2016 Care Plan: CT PELVIS W/O DYE LOINC : 361 08-9 Pending 06/05/2016 Care Plan: CT ABDOMEN W/O DYE LOINC : 36 103-0 Pending 06/05/2016 Care Plan: Referral Order SNOMED-CT : [id number] Pending 06/05/2016 Appointment: Jayna Vanessa WPtel: [phone] [phone] US INJECTION 05/01/2016 Patient Education: Patient Medication Summary Completed 05/01/2016 Patient Education: Patient Medication Summary Completed 04/26/2016 Care Plan: RML COMPREHEN METABOLIC PANEL LOINC : 82158-6 Pending 04/26/2016 Care Plan: RML ASSAY THYROID STIM HORMONE Pending 04/26/2016 Care Plan: RML ASSAY OF FREE THYROXINE Pe nding 04/26/2016 Care Plan: RML A1C HPLC LOINC : 88428-6 Pending 04/26/2016 Referral: Aditya Stone WPtel: [address] [place] [address] [place], [place] [id number] Arrival time is 10:00 Am~sl Appointment Confirme d 11/25/2015 Visit Plan: Had fasting lab done this AM Continue PT for right shoulder Continue current meds Referral to Dr. Temo Stone for incontinence 11/08/2015 Appointment: Jayna Vanessa WPtel: [phone] [phone] 11/06 confirmed-sp FOLLOW UP 11/08/2015 Patient Education: Patient Medication Summary Completed 11/08/2015 Appointment: Jayna Vanessa WPtel: [phone] [phone] 10/19 rescheduled ~sl RESCHEDULED 10/24/2015 Appointment: Jayna Vanessa WPtel: [phone] [phone] 10/10rang and rang ~sl RESCHEDULED 6 Patient Education: Patient Medication Summary Completed 10/12/2015 Care Plan: RML COMPREHEN METABOLIC PANEL LOINC : 39547-7 Pending 10/12/2015 Care Plan: RML ASSAY THYROID STIM HORMONE Pending 10/12/2015 Care Plan: RML ASSAY OF FREE THYROXINE Pe nding 10/12/2015 Care Plan: RML LIPID PANEL LOINC : 90485 -1 Pending 10/12/2015 Care Plan: CBC Pending 10/12/2015 Care Plan: RML A1C HPLC LOINC : 57866-5 Pending 10/12/2015 Care Plan: VITAMIN D TOTAL (25 HYDROXY) P ending 10/12/2015 Appointment: Jayna Vanessa WPtel: [facility][note 3]8 [phone] US CANCELED 09/22/2015 Visit Plan: Lab discussed Change thyroid med back to brand synthroid and recheck thyroid lab in os 07/19/2015 Appointment: Jayna Vanessa WPtel: [phone] [phone] 07/18/15 appt confirmed cn FOLLOW UP 07/19 Patient Education: Patient Medication Summary Completed 07/19/2015 Patient Education: Patient Medication Summary Completed 07/12/2015 Visit Plan: Lab discussed Change synthro id to 150mcg all days but M, W, F will change to 175mcg Check Lab and fwup in os Flu shot given 03/28/2015 Appointment: Jayna Vanessa WPtel: [phone] [phone] 03/25 rang for 1:40 seconds 03/28/ appt confirmed cn FOLLOW UP 03/28/2015 Patient Education: Patient Medication Summary Completed 03/28/2015 Patient Education: Patient Medication Summary Completed 03/21/2015 Visit Plan: Continuue fluoxetine at high er dose Increase synthroid to 150mcg as ordered Decrease propranolol to 20mg po BID Check thyroid lab and fwup in 2mos Prevnar 13 given 02/08/2015 Appointment: Jayna Vanessa WPtel: [address] [place], [place] [phone] [place] [address] FOLLOW UP 02/08/2015 Patient Education: Patient Medication Summary Completed 02/08/2015 Visit Plan: Check CBC, CMP, TSH, Free T4 , uric acid, lactate now Increase fluoxetine to 40mg daily Recheck in 1month Notify if worsening Culture urine 01/11/2015 Appointment: Jayna Vanessa WPtel: [address] [place], [place] [phone] [place] [address] ACUTE ILLNESS 01/11/2015 Patient Education: Patient Medication Summary Completed 01/11/2015 Visit Plan: Lab discussed Accuchecks lucian ly Medrol dose pack Rx for back brace 11/24/2014 Appointment: Jayna Vanessa WPtel: [address] [place], [place] [phone] 6/2 confirmed -mf FOLLOW UP 11/24/2014 Patient Education: Patient Medication Summary Completed 11/24/2014 Appointment: Galina Leos WPtel: [address] [place] [address] ER Follow UP 11/19/2014 Patient Education: Patient Medication Summary Completed 11/19/2014 Appointment: Conchita Capone WPtel: [address] [place] [address] ACUTE ILLNESS 10/27/2014 Patient Education: Patient Medication Summary Completed 10/27/2014 Patient Education: [facility] - Saving AutoInj - 18+ - Dynamic Portal ID Completed 10/27/2014 Appointment: Conchita Capone WPtel: [address] [place] [address] ACUTE ILLNESS 09/23/2014 Patient Education: Patient Medication Summary Completed 09/23/2014 Visit Plan: Lab discussed Continue curre nt meds 07/28/2014 Appointment: Jayna Vanessa WPtel: [phone] [phone] 07/27 FOLLOW UP 07/28/2014 Patient Education: Patient Medication Summary Completed 07/28/2014 Patient Education: Patient Medication Summary Completed 07/21/2014 Patient Education: Patient Medication Summary Completed 04/27/2014 Appointment: Jayna Vanessa WPtel: [address] [place], [place] [phone] 03/29 FOLLOW UP 03/30/2014 Patient Education: Patient Medication Summary Completed 03/30/2014 Patient Education: [facility] - Saving AutoInj - 18+ - Dynamic Portal ID Completed 03/30/2014 Visit Plan: Lab discussed DC Vytorin Tri al of Lipitor 80mg q HS Continue Trilipix Check Lipids/CMP/thyroid and HbA1C in 4mos then fwup 11/24/2013 Appointment: Jayna Vanessa WPtel: [address] [place], [place] [phone] FOLLOW UP 11/24/2013 Patient Education: Patient Medication Summary Completed 11/24/2013 Patient Education: [facility] - Saving AutoInj - 18+ - Dynamic Portal ID Completed 11/24/2013 Visit Plan: Lab discussed Daily accuchec ks Cont current meds 08/25/2013 Appointment: Jayna Vanessa WPtel: [address] [place] [phone] 08/24 FOLLOW UP 08/25/2013 Patient Education: Patient Medication Summary Completed 08/25/2013 Appointment: Jayna Vanessa WPtel: [address] [place] [phone] FOLLOW UP 08/05/2013 Visit Plan: Continue Wellbutrin/Fluoxeti ne Fasting lab and fwup in 2mos 06/29/2013 Appointment: Jayna Vanessa WPtel: [address] [place] [phone] 06/26 [facility] [place] UP 06/29/2013 Patient Education: Patient Medication Summary Completed 06/29/2013 Visit Plan: Increase Wellbutrin to 300mg daily Add fluoxetine 20mg daily 05/26/2013 Appointment: Jayna Vanessa WPtel: [address] [place], [place] [phone] FOLLOW UP 05/26/2013 Patient Education: Patient Medication Summary Completed 05/26/2013 Visit Plan: OK to proceed with planned s ulder surgery next week Continue current meds Check fasting lab--CBC, CMP, TSH, free T4, HbA1C, Lipids, Vit D at end of this week prior to surgery 05/06/2013 Appointment: Jayna Vanessa WPtel: [address] [place], [place] [phone] FOLLOW UP 05/06/2013 Patient Education: Patient Medication Summary Completed 05/06/2013 Appointment: Jayna Vanessa WPtel: [address] [place], [place] [phone] ACUTE ILLNESS 04/23/2013 Patient Education: Patient Medication Summary Completed 04/23/2013 Patient Education: [facility] - Saving AutoInj - 18+ - Dynamic Portal ID Completed 04/23/2013 Visit Plan: Decrease Lasix to 20mg daily Leave potassium at 20meq daily Check Chem 7 in 1wk 03/31/2013 Appointment: Jayna Vanessa WPtel: [address] [place], [place] [phone] FOLLOW UP 03/31/2013 Patient Education: Patient Medication Summary Completed 03/31/2013 Appointment: Conchita Capone WPtel: [address] [place], [place] [phone] ACUTE ILLNESS 03/05/2013 Patient Education: Patient Medication Summary Completed 03/05/2013 Visit Plan: Lab discussed Continue curre nt meds Pt is going to start allergy injections Go for port placement to continue prolastin infusions 02/04/2013 Appointment: Jayna Vanessa WPtel: [address] [place], [place] [phone] ACUTE ILLNESS 02/04/2013 Patient Education: Patient Medication Summary Completed 02/04/2013 Visit Plan: 2-D ECHO discussed See Pulmo nology Pt states cough had went away with allergy meds and then has came back Continue allergy meds and add pepcid BID Discussed allergy testing 11/27/2012 Appointment: Jayna Vanessa WPtel: [address] [place], [place] [phone] FOLLOW UP 11/27/2012 Patient Education: Patient Medication Summary Completed 11/27/2012 Visit Plan: PFTS discussed Proceed with 2-D ECHO and pulmonology evaluation Pt was concerned propranolol could be cause but discussed this is likely not culpri DEANDRE was DCed in 2009, is on PPI, has seen ENT, will restart allergy meds--may need allergy testing 11/11/2012 Appointment: Jayna Vanessa WPtel: [address] [place], [place] [phone] FOLLOW UP 11/11/2012 Patient Education: Patient Medication Summary Completed 11/11/2012 Visit Plan: Hold metformin Check CMP, Li pids, TSH, Free T4, HbA1C Check PFTs 10/20/2012 Appointment: Jayna Vanessa WPtel: [address] [place], [place] [phone] 10/17 left message FOLLOW UP 10/20/2012 Patient Education: Patient Medication Summary Completed 10/20/2012 Appointment: Jayna Vanessa WPtel: [address] [place], [place] [phone] 10/13 FOLLOW UP 10/14/2012 Visit Plan: Discussed fluids and rest. W ill monitor for worsening symptoms/fever. Azithromycin, medrol dose pack and refil on cough syrup. Pt. will notify if symptoms worsen or persist. 09/03/2012 Appointment: Lizzie Kelly WPtel: [address] [place], [place] [phone] ACUTE ILLNESS 09/03/2012 Patient Education: Patient Medication Summary Completed 09/03/2012 Visit Plan: discussed that symptoms star edvin around Lion time. Will begin culturelle BID and monitor for fever or worsening symptoms. Fluid intake important. CBC, CMP, sed rate and stool studies. Order written for Mag lab. 07/23/2012 Appointment: Lizzie Kelly WPtel: [address] [place], [place] [phone] ACUTE ILLNESS 07/23/2012 Patient Education: Patient Medication Summary Completed 07/23/2012 Visit Plan: Increase Metformin to 1000mg po BID Accuchecks daily Continue rest of meds at current dose and low-fat, low-sugar diet with increased exercise Check fasting lab in 4mos Restart Nexium 05/20/2012 Appointment: Jayna Vanessa WPtel: [address] [place], [place] [phone] patient had bad night so missed 05/06 appt...left voicemail 05/19 FOLLOW UP 05/20/2012 Patient Education: Patient Medication Summary Completed 05/20/2012 Appointment: Jayna Vanessa WPtel: [address] [place], [place] [phone] patient had bad night so missed 05/06 appt time. FOLLOW UP 05/06/2012 Appointment: Galina Leos WPtel: [address] [place], [place] [phone] ACUTE ILLNESS 04/04/2012 Patient Education: Patient Medication Summary Completed 04/04/2012 Visit Plan: Cryotherapy as above 02/20/2012 Appointment: Jayna Vanessa WPtel: [address] [place], [place] [phone] 02/18 OFFICE SURGERY 02/20/2012 Patient Education: Patient Medication Summary Completed 02/20/2012 Visit Plan: Increase Metfromin to 1000mg daily Continue all other current meds 01/02/2012 Appointment: Jayna Vanessa WPtel: [address] [place], [place] [phone] FOLLOW UP 01/02/2012 Patient Education: Patient Medication Summary Completed 01/02/2012 Appointment: Lizzie Kelly WPtel: [address] [place], [place] [phone] ACUTE ILLNESS 09/04/2011 Patient Education: Patient Medication Summary Completed 09/04/2011 Visit Plan: Finish Keflex Proceed with c olonoscopy Increase aspirin to 325mg daily for next 2wks Add Vimovo 20/500mg po Daily 08/14/2011 Appointment: Jayna Vanessa WPtel: [address] [place], [place] [phone] [facility] Follow Up 08/14/2011 Patient Education: Patient Medication Summary Completed 08/14/2011 Appointment: Lizzie Kelly WPtel: [address] [place] [address] ACUTE ILLNESS 07/31/2011 Patient Education: Patient Medication Summary Completed 07/31/2011 Visit Plan: Doxy and steroids. Codeine/g uiaf cough syrup. Pt. will monitor for worsening symptoms and notify if fever occurs. Encouraged rest and fluids. 07/25/2011 Appointment: Lizzie Kelly WPtel: [address] [place], [place] [phone] ACUTE ILLNESS 07/25/2011 Patient Education: Patient Medication Summary Completed 07/25/2011 Visit Plan: Check full lab in 3mos Radha nue with all current meds Continue PT for knee 07/12/2011 Appointment: Jayna Vanessa WPtel: [address] [place], [place] [phone] FOLLOW UP 07/12/2011 Patient Education: Patient Medication Summary Completed 07/12/2011 Visit Plan: Continue symbicort for 2 mor e weeks 05/09/2011 Appointment: Jayna Vanessa WPtel: [address] [place], [place] [phone] FOLLOW UP 05/09/2011 Patient Education: Patient Medication Summary Completed 05/09/2011 Appointment: Jayna Vanessa WPtel: [address] [place], [place] [phone] ER Follow UP 05/02/2011 Patient Education: Patient Medication Summary Completed 05/02/2011 Visit Plan: Pt. has recently finished ro und of Cefdinir with no improvement. Chest x-ray, CBC, CMP and mycoplasma order given to pt. Pt. will start Doxycycline. 04/25/2011 Appointment: Lizzie Kelly WPtel: [address] [place], [place] [phone] FOLLOW UP 04/25/2011 Patient Education: Patient Medication Summary Completed 04/25/2011 Appointment: Lizzie Kelly WPtel: [address] [place], [place] [id number] ACUTE ILLNESS 04/04/2011 Patient Education: Patient Medication Summary Completed 04/04/2011 Appointment: Lizzie Kelly WPtel: [address] [place], [place] [phone] ACUTE ILLNESS 04/03/2011 Visit Plan: Decrease Synthroid to 150mcg daily Repeat TSH and Free T4 in 2mos Knee injection as above 03/01/2011 Appointment: Jayna Vanessa WPtel: [address] [place], [place] [phone] 03/01/2011 Patient Education: Patient Medication Summary Completed 03/01/2011 Visit Plan: Increase Synthroid to 175mcg po daily Check TSH, Free T4 in 8wks Injection given to knee as above Continue Pt 01/04/2011 Appointment: Jayna Vanessa WPtel: [address] [place], [place] [phone] FOLLOW UP 01/04/2011 Patient Education: Patient Medication Summary Completed 01/04/2011 Visit Plan: Septra DS, Mupirocin topical . Pt. will observe wound and report worsening symptoms. 12/07/2010 Appointment: Lizzie Kelly WPtel: [address] [place], [place] [phone] ACUTE ILLNESS 12/07/2010 Patient Education: Patient Medication Summary Completed 12/07/2010 Visit Plan: Increase Synthroid to 150mcg po daily Add Metformin Diet and exercise discussed at length again Repeat thyroid US Add Vit D level Will see if polydipsia improves with metformin 10/09/2010 Appointment: Jayna Vanessa WPtel: [address] [place], [place] [phone] FOLLOW UP 10/09/2010 Patient Education: Patient Medication Summary Completed 10/09/2010 Visit Plan: Increase Synthroid to 125mcg daily Decrease Vit D 50,000 u three times a week Discussed HRT Proceed with sleep study Fwup pending sleep study results 08/07/2010 Appointment: Jayna Vanessa WPtel: [address] [place], [place] [phone] FOLLOW UP 08/07/2010 Patient Education: Patient Medication Summary Completed 08/07/2010 Visit Plan: Decrease Synthroid to 100mcg QD Check thyroid lab in 2mos Check estradiol levels in 2mos--discussed HRT Increase Vit D 50,000u to 1 daily M-F 06/06/2010 Appointment: Jayna Vanessa WPtel: [address] [place], [place] [phone] ACUTE ILLNESS 06/06/2010 Patient Education: Patient Medication Summary Completed 06/06/2010 Visit Plan: Injections to knees as above 04/12/2010 Appointment: Jayna Vanessa WPtel: [address] [place], [place] [phone] OFFICE SURGERY 04/12/2010 Patient Education: Patient Medication Summary Completed 04/12/2010 Visit Plan: Decrease Synthroid to 175mcg QD Check lab in 2mos Change daily Vit D to weekly 03/20/2010 Appointment: Jayna Vanessa WPtel: [address] [place], [place] [phone] ESTABLISHED PATIENT 03/20/2010 Patient Education: Patient Medication Summary Completed 03/20/2010 Appointment: Jayna Vanessa WPtel: [address] [place], [place] [phone] ACUTE ILLNESS 01/30/2010 Patient Education: Patient Medication Summary Completed 01/30/2010 Appointment: Jayna Vanessa WPtel: [phone] [phone] ACUTE ILLNESS 01/09/2010 Patient Education: Patient Medication Summary Completed 01/09/2010 Appointment: Jayna Vanessa WPtel: [phone] [phone] BP CHECK 11/07/2009 Patient Education: Patient Medication Summary Completed 11/07/2009 Appointment: Jayna Vanessa WPtel: [phone] [phone] OFFICE SURGERY 10/26/2009 Patient Education: Patient Medication Summary Completed 10/26/2009 Appointment: Lizzie Kelly WPtel: [address] [place], [place] [phone] OFFICE SURGERY 10/17/2009 Patient Education: Patient Medication Summary Completed 10/17/2009 Visit Plan: Follow up appnt in one wk. P t. is given medicaiton for vomiting and diet progression is discussed. Pt. wishes to know Vit D values. Will research it and give information at follow up visit. Fluid from I&D is sent for culture and sensitivity. Pt. is aware she will probably be notified by telephone near thend of the week regarding results. She will seek re-eval if symptoms worsen before follow up appnt. 10/04/2009 Appointment: Lizzie Kelly WPtel: [address] [place], [place] [phone] ACUTE ILLNESS 10/04/2009 Patient Education: Patient Medication Summary Completed 10/04/2009 Visit Plan: E-scribed refils. Pt. report s that she normally has lab work drawn and orders are given (faxed) to her normal lab facility by Patricia. Pt. states her migraine headaches have abated for now and that she is going to see her migraine doctor in [place] in the near future(Dr Cook) Pt will seek re-eval as necessary for acute issues. 09/21/2009 Appointment: Lizzie Kelly WPtel: [address] [place], [place] [id number] [place] CHECK UP 09/21/2009 Patient Education: Patient Medication Summary Completed 09/21/2009 [facility]ment: [facility] [phone] [facility] [id number] [place] CHECK UP 09/20/2009 Appointment: Lizz[facility] Kelly [facility]Ptel: [address] [facility] [id number] [place] FOLLOW UP 09/19/2009 Referral: Alf Lang WPtel: [facility] Yang [id number] [place] Referral Appointment Requested Referral: Singh Pina WPtel: [phone] [facility] [place] Referral Appointment Requested Referral: Aditya Stone WPtel: [phone] [facility] [address] [id number] [place] Referral Appointment Requested Instructions Comment Date . Supportive care. Rest, Fluids, Tyleno l/Motrin prn fever or bodyaches. Notify if worsening symptoms. 07/04/2021 . Supportive care. Rest, Fluids, Tyleno l/Motrin prn fever or bodyaches. Notify if worsening symptoms. 07/29/[address] abdomen/pelvis Will need EGD and Colonoscopy so will refer to Dr. Pina Obtain most recent lab results 06/05/2016 . Had fasting lab done this AM Continue PT for right shoulder Continue current meds Referral to Dr. Temo Stone for incontinence 11/08/2015 . Lab discussed Change thyroid med back to brand synthroid and recheck thyroid lab in os 07/19/2015 . Lab discussed Change synthroid to 150mcg all days but M, W, F will change to 175mcg Check Lab and fwup in 3mos Flu shot given 03/28/2015 . Continuue fluoxetine at higher dose Increase synthroid to 150mcg as ordered Decrease propranolol to 20mg po BID Check thyroid lab and fwup in 2mos Prevnar 13 given 02/08/2015 . Check CBC, CMP, TSH, Free T4, uric aci d, lactate now Increase fluoxetine to 40mg daily Recheck in 1month Notify if worsening Culture urine 01/11/2015 . Lab discussed Accuchecks daily Medrol dose pack Rx for back brace 11/24/2014 . Lab discussed Continue current meds 07/28/2014 . Lab discussed DC Vytorin Trial of Lipitor 80mg q HS Continue Trilipix Check Lipids/CMP/thyroid and HbA1C in 4mos then fwup 11/24/2013 . Lab discussed Daily accuchecks Cont current meds 08/25/2013 . Continue Wellbutrin/Fluoxetine Fasting lab and fwup in 2mos 06/29/2013 . Increase Wellbutrin to 300mg daily Add fluoxetine 20mg daily 05/26/2013 . OK to proceed with planned shoulder chairez rgery next week Continue current meds Check fasting lab--CBC, CMP, TSH, free T4, HbA1C, Lipids, Vit D at end of this week prior to surgery 05/06/2013 . Decrease Lasix to 20mg daily Leave potassium at 20meq daily Check Chem 7 in 1wk 03/31/2013 . Lab discussed Continue current meds Pt is going to start allergy injections Go for port placement to continue prolastin infusions 02/04/2013 . 2-D ECHO discussed See Pulmonology Pt states cough had went away with allergy meds and then has came back Continue allergy meds and add pepcid BID Discussed allergy testing 11/27/2012 . PFTS discussed Proceed with 2-D ECHO and pulmonology evaluation Pt was concerned propranolol could be cause but discussed this is likely not culpri DEANDRE was DCed in 2009, is on PPI, has seen ENT, will restart allergy meds--may need allergy testing 11/11/2012 . Hold metformin Check CMP, Lipids, TSH, Free T4, HbA1C Check PFTs 10/20/2012 . Discussed fluids and rest. Will monit or for worsening symptoms/fever. Azithromycin, medrol dose pack and refil on cough syrup. Pt. will notify if symptoms worsen or persist. 09/03/2012 . discussed that symptoms started around Lion time. Will begin culturelle BID and monitor for fever or worsening symptoms. Fluid intake important. CBC, CMP, sed rate and stool studies. Order written for [facility] lab. 07/23/2012 . Increase Metformin to 1000mg po BID Accuchecks daily Continue rest of meds at current dose and low-fat, low-sugar diet with increased exercise Check fasting lab in 4mos Restart Nexium 05/20/2012 . Cryotherapy as above 02/20/2012 Glucometer given to use prn. Increase Me tfromin to 1000mg daily Continue all other current meds 01/02/2012 . Finish Keflex Proceed with colonoscopy Increase aspirin to 325mg daily for next 2wks Add Vimovo 20/500mg po Daily 08/14/2011 . Doxy and steroids. Codeine/guiaf coug h syrup. Pt. will monitor for worsening symptoms and notify if fever occurs. Encouraged rest and fluids. 07/25/2011 . Check full lab in 3mos Continue with all current meds Continue PT for knee 07/12/2011 . Continue symbicort for 2 more weeks 05/09/2011 . Pt. has recently finished round of Cef dinir with no improvement. Chest x-ray, CBC, CMP and mycoplasma order given to pt. Pt. will start Doxycycline. 04/25/2011 . Decrease Synthroid to 150mcg daily Repeat TSH and Free T4 in 2mos Knee injection as above 03/01/2011 . Increase Synthroid to 175mcg po daily Check TSH, Free T4 in 8wks Injection given to knee as above Continue Pt 01/04/2011 . Septra DS, Mupirocin topical. Pt. fei l observe wound and report worsening symptoms. 12/07/2010 . Increase Synthroid to 150mcg po daily Add Metformin Diet and exercise discussed at length again Repeat thyroid US Add Vit D level Will see if polydipsia improves with metformin 10/09/2010 . Increase Synthroid to 125mcg daily Decrease Vit D 50,000 u three times a week Discussed HRT Proceed with sleep study Fwup pending sleep study results 08/07/2010 . Decrease Synthroid to 100mcg QD Check thyroid lab in 2mos Check estradiol levels in 2mos--discussed HRT Increase Vit D 50,000u to 1 daily M-F 06/06/2010 . Injections to knees as above 04/12/2010 . Decrease Synthroid to 175mcg QD Check lab in 2mos Change daily Vit D to weekly 03/20/2010 . Follow up appnt in one wk. Pt. is give n medicaiton for vomiting and diet progression is discussed. Pt. wishes to know Vit D values. Will research it and give information at follow up visit. Fluid from I&D is sent for culture and sensitivity. Pt. is aware she will probably be notified by telephone near thend of the week regarding results. She will seek re-eval if symptoms worsen before follow up appnt. 10/04/2009 . E-scribed refils. Pt. reports that john thomas normally has lab work drawn and orders are given (faxed) to her normal lab facility by Patricia. Pt. states her migraine headaches have abated for now and that she is going to see her migraine doctor in [place] in the near future(Dr Cook) Pt will seek re-eval as necessary for acute issues. 09/21/2009 Medical Equipment No Medical Equipment data Health Concerns Section Health Concerns data not found Goals Section Goals data not found Interventions Section Interventions data not found Health Status Evaluations/Outcomes Section Health Status Evaluations/Outcomes data not found Advance Directives No Advance Directive data
--- OUTSIDE RECORDS SUMMARY | 2022-09-10 16:59 | XMS REPORT | CCD ---
Author Author Marcella Vanessa D.O. 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 Name Role Phone Jayna Vanessa D.O., PP Unavailable CCM Unavailable Summary Purpose Interface Exchange Insurance Providers Payer name Policy type / Coverage type Covered alliance party ID Effective Begin Date Effective End Date [employer] Commercial Insurance [id number] Unknown Commercial Insurance [id number] Unknown Family history Side Diagnosis Age At Onset Heart disease Unknown Diabetes Unknown Sister Diagnosis Age At Onset Diabetes Unknown Brother Diagnosis Age At Onset Diabetes Unknown Mother Diagnosis Age At Onset Heart disease Unknown Father Diagnosis Age At Onset Heart disease Unknown Social History Social History Element Codes Description Effective Dates Tobacco history SNOMED CT: 418525681 Never smoker 04/04/2011 Marital status Unknown 09/21/2009 [...] gastroenteritis ICD-10: K52.9 ICD-9: 558.9 07/05/2020 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 11/28/2016 Active [...] ANXIETY STATE NOS ICD-9: 300.00 03/05/2013 Active Pokog-7-kcldbbrstpg 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 02/04/2013 A ctive DYSPNEA [...] Fill Instructions Macrobid 100 mg capsule RxNorm: 196811 Take 1 Capsule(s) Oral t wo times a day 09/05/2022 09/11/2022 Active bupropion HCl XL 300 mg 24 hr tablet, extended release RxNor m: 989058 TAKE 1 Tablet BY MOUTH DAILY IN THE MORNING (replaces 150mg DOSE) 08/29/2022 02/24/2023 Active levothyroxine 150 mcg tablet RxNorm: 825636 TAKE ONE TA BLET BY MOUTH EVERY IN THE MORNING 08/29/2022 02/24/2023 Active ciprofloxacin 250 mg tablet RxNorm: 258753 Take 1 Tablet(s) Ora l Q12H 06/29/2022 07/03/2022 Inactive levothyroxine 150 mcg tablet RxNorm: 643935 Take 1 Tablet(s) Or al QAM 06/03/2022 06/03/2022 Inactive Wellbutrin XL 300 mg 24 hr tablet, extended release RxNorm: 987881 Take 1 Tablet(s) Oral QAM replaces 150mg dose 05/28/2022 05/28/2022 Inactive Xyzal 5 mg tablet RxNorm: 277668 Take 1 Tablet(s) Oral QPM 05/10/2010/06/2022 Active Claritin 10 mg tablet RxNorm: 490935 Take 1 Tablet(s) Oral QAM 04/2409/06/2022 Inactive Flonase Allergy Relief 50 mcg/actuation nasal spray,suspensi on RxNorm: 6921693 Take 1 Preemption Nasal two times a day 05/10/2022 06/08/2022 Inactive Wellbutrin XL 150 mg 24 hr tablet, extended release RxNorm: 394980 Take 1 Tablet(s) Oral QAM 05/10/2022 05/27/2022 Inactive sumatriptan 100 mg tablet RxNorm: 638471 1 Tablet(s) Or al after onset of migraine; may repeat after 2 hours if headache returns, not to exceed 200mg in 24hrs replaces rizatriptan 04/19/2022 04/19/2022 Inactive sumatriptan 100 mg tablet RxNorm: 063006 1 Tablet(s) Or al after onset of migraine; may repeat after 2 hours if headache returns, not to exceed 200mg in 24hrs replaces rizatriptan 04/19/2022 04/19/2022 Inactive propranolol 20 mg tablet RxNorm: 551919 TAKE 1 TABLET BY MOUTH TWICE DAILY 04/18/2022 10/14/2022 Active rizatriptan 10 mg disintegrating tablet RxNorm: 117822 Take 1 Tablet(s) Oral on top of tongue, allow to dissolve then swallow once, may repeat every 2 hrs; max 30 mg/24hrs 04/18/2022 04/18/2022 Inactive prednisone 20 mg tablet RxNorm: 589238 Take 1 Tablet(s) Oral tw o times a day 02/15/2022 02/21/2022 Inactive Nurtec ODT 75 mg disintegrating tablet RxNorm: 2604699 T bria 1 Tablet(s) Oral per 24 hours as needed for migraine 02/09/2022 02/09/2022 Inactive Nurtec ODT 75 mg disintegrating tablet RxNorm: 3544059 T bria 1 Tablet(s) Oral per 24 hours as needed for migraine 02/09/2022 02/09/2022 Inactive fluticasone propionate 50 mcg/actuation nasal spray,suspensi on RxNorm: 8419840 SPRAY ONE SPRAY IN EACH NOSTRIL TWICE DAILY NEEDED 02/05/20222021 Inactive levothyroxine 150 mcg tablet RxNorm: 357814 Take 1 Tablet(s) Or al QAM 02/04/2022 02/04/2022 Inactive albuterol sulfate HFA 90 mcg/actuation aerosol inhaler RxNor m: 4789144 Inhale 2 Puff(s) Oral Q4H as needed 01/05/2022 04/04/2022 Inactive pantoprazole 40 mg tablet,delayed release RxNorm: 939975 Take 1 Tablet(s) Oral QD 01/04/2022 07/02/2022 Inactive propranolol 20 mg tablet RxNorm: 756980 TAKE 1 TABLET BY MOUTH TWICE DAILY 01/04/2022 04/17/2022 Inactive levothyroxine 150 mcg tablet RxNorm: 168308 Take 1 Tablet(s) Or al QAM 12/05/2021 12/05/2021 Inactive metronidazole 500 mg tablet RxNorm: 899985 Take 1 Table t(s) Oral two times a day 11/29/2021 12/05/2021 Inactive Singulair 10 mg tablet RxNorm: 862500 Take 1 Tablet(s) Oral QPM 06/202105/09/2022 Inactive Diflucan 100 mg tablet RxNorm: 082476 Take 1 Tablet(s) Oral QD 06/0 06/202111/28/2021 Inactive pantoprazole 40 mg tablet,delayed release RxNorm: 874849 Take 1 Tablet(s) Oral QD 11/06/2021 11/06/2021 Inactive fluticasone propionate 50 mcg/actuation nasal spray,suspensi on RxNorm: 5555357 SPRAY ONE SPRAY IN EACH NOSTRIL TWICE DAILY NEEDED 11/03/20212021 Inactive scopolamine 1 mg over 3 days transdermal patch RxNorm: 09106 2 Apply 1 Unit Dose Transdermal Q72H behind ear 10/30/2021 02/05/2022 Inactive albuterol sulfate HFA 90 mcg/actuation aerosol inhaler RxNor m: 6247049 Inhale 2 Puff(s) Oral Q4H as needed 10/05/2021 11/24/2021 Inactive pantoprazole 40 mg tablet,delayed release RxNorm: 337396 Take 1 Tablet(s) Oral QD 10/05/2021 10/05/2021 Inactive meloxicam 7.5 mg tablet RxNorm: 804667 Take 1 Tablet(s) Oral QD for pain 09/05/2021 09/11/2021 Inactive baclofen 10 mg tablet RxNorm: 841836 Take 0.5-1 Tablet( s) Oral three times per week as needed for muscle spasm 09/05/2021 02/05/2022 Inactive prednisone 20 mg tablet RxNorm: 269590 Take 1 Tablet(s) Oral QD 08/202108/28/2021 Inactive pantoprazole 40 mg tablet,delayed release RxNorm: 582683 Take 1 Tablet(s) Oral QD 07/07/2021 09/04/2021 Inactive fluticasone propionate 50 mcg/actuation nasal spray,suspensi on RxNorm: 9683115 Take 1 Preemption Nasal two times a day in each nostrilas needed 07/04/2021 10/01/2021 Inactive Decadron 6 mg tablet RxNorm: 554796 Take 1 Tablet(s) Oral QD 202107/08/2021 Inactive albuterol sulfate HFA 90 mcg/actuation aerosol inhaler RxNor m: 3523966 Inhale 2 Puff(s) Oral Q4H as needed 06/08/2021 09/05/2021 Inactive propranolol 20 mg tablet RxNorm: 931176 TAKE 1 TABLET BY MOUTH TWICE DAILY 06/08/2021 06/08/2021 Inactive pantoprazole 40 mg tablet,delayed release RxNorm: 463293 Take 1 Tablet(s) Oral QD 04/09/2021 06/07/2021 Inactive ProAir HFA 90 mcg/actuation aerosol inhaler RxNorm: 777599 2 Puff(s) Inhalation Q4H as needed 03/13/2021 03/13/2021 Inactive citalopram 10 mg tablet RxNorm: 915503 1 Tablet(s) Oral two antonio es a day 03/13/2021 02/05/2022 Inactive levothyroxine 150 mcg tablet RxNorm: 672655 TAKE 1 Tabl et BY MOUTH EVERY MORNING (REPLACES 137 MCG DOSE) 03/09/2021 03/09/2021 Inactive pantoprazole 40 mg tablet,delayed release RxNorm: 209980 Take 1 Tablet(s) Oral QD 02/08/2021 04/08/2021 Inactive triamcinolone acetonide 0.1 % topical cream RxNorm: 8471908 Take Application Topical two times a day to arm rash 01/19/2021 01/19/2021 Inactive prednisone 20 mg tablet RxNorm: 749412 Take 1 Tablet(s) Oral QD 01/23/2021 Inactive levothyroxine 150 mcg tablet RxNorm: 169728 Take 1 Tabl et(s) Oral QAM replaces 137mcg dose 01/03/2021 01/03/2021 Inactive prednisone 20 mg tablet RxNorm: 392149 Take 2 Tablet(s) Oral QD 01/202112/03/2020 Inactive promethazine-DM 6.25 mg-15 mg/5 mL oral syrup RxNorm: 278591 Take 5 Milliliter(s) Oral Every 6 hours as needed, not to exceed 30 mL in 24 hours 11/29/2020 12/03/2020 Inactive doxycycline hyclate 100 mg capsule RxNorm: 6024253 1 Cap kimi(s) Oral two times a day 09/29/2020 10/05/2020 Inactive Lalita-D 12 Hour 60 mg-120 mg tablet,extended release RxNor m: 390424 1 Tablet(s) Oral QD 09/19/2020 10/03/2020 Inactive ProAir HFA 90 mcg/actuation aerosol inhaler RxNorm: 282947 2 Inhalation Q4H as needed 09/19/2020 09/19/2020 Inactive propranolol 20 mg tablet RxNorm: 410917 TAKE 1 TABLET BY MOUTH TWICE DAILY 09/15/2020 09/15/2020 Inactive pantoprazole 40 mg tablet,delayed release RxNorm: 884225 1 Tabl et(s) Oral QD 09/09/2020 09/08/2020 Inactive pantoprazole 40 mg tablet,delayed release RxNorm: 472124 1 Tabl et(s) Oral QD 09/09/2020 11/07/2020 Inactive propranolol 20 mg tablet RxNorm: 926304 TAKE 1 TABLET BY MOUTH TWICE DAILY 08/24/2020 09/09/2020 Inactive levothyroxine 137 mcg tablet RxNorm: 923199 1 Tablet(s) Oral QD 08/202001/02/2021 Inactive fzdslqgb-hzkbsjbby-xcyhuhqz 3.5 mg/mL-10,000 unit/mL-0 .1% eye drops RxNorm: 880347 4 Drop(s) Otic three times a day 08/10/2020 02/05/2022 Inactive prednisone 20 mg tablet RxNorm: 481150 1 Tablet(s) Oral two antonio es a day 08/01/2020 08/08/2020 Inactive pantoprazole 40 mg tablet,delayed release RxNorm: 980502 1 Tabl et(s) Oral QD 07/13/2020 09/08/2020 Inactive ondansetron HCl 4 mg tablet RxNorm: 991566 1 Tablet(s) Oral Q4H as needed for nausea 07/13/2020 05/09/2022 Inactive levothyroxine 137 mcg tablet RxNorm: 594781 1 Tablet(s) Oral QD 08/23/2020 Inactive pantoprazole 40 mg tablet,delayed release RxNorm: 759348 1 Tabl et(s) Oral QD 07/13/2020 07/12/2020 Inactive ondansetron HCl 4 mg tablet RxNorm: 651293 1 Tablet(s) Oral Q4H as needed for nausea 07/05/2020 07/12/2020 Inactive Flagyl 500 mg tablet RxNorm: 949248 1 Tablet(s) Oral three time s a day 07/05/2020 07/12/2020 Inactive Fish Oil 1,000 mg (120 mg-180 mg) capsule RxNorm: 1 Caps ule(s) Oral QD 06/23/2020 09/18/2020 Inactive rosuvastatin 10 mg tablet RxNorm: 511068 1 Tablet(s) Oral MWF 06/2306/22/2020 Inactive rosuvastatin 10 mg tablet RxNorm: 768338 1 Tablet(s) Oral MWF 06/2302/05/2022 Inactive fluconazole 100 mg tablet RxNorm: 681957 1 Tablet(s) Oral QOD 05/1706/21/2020 Inactive Macrobid 100 mg capsule RxNorm: 702474 1 Capsule(s) Oral two ti mes a day 05/17/2020 05/24/2020 Inactive levothyroxine 137 mcg tablet RxNorm: 593003 TAKE 1 TABLET BY [facility] ONCE DAILY 05/16/2020 07/12/2020 Inactive Eliquis 5 mg tablet RxNorm: 1877829 1 Tablet(s) Oral two times a da y 04/25/2020 02/05/2022 Inactive propranolol 20 mg tablet RxNorm: 694088 TAKE 1 TABLET BY MOUTH TWICE DAILY 04/25/2020 08/23/2020 Inactive doxycycline hyclate 100 mg capsule RxNorm: 0317535 1 Cap kimi(s) Oral two times a day 03/24/2020 03/31/2020 Inactive doxycycline hyclate 100 mg capsule RxNorm: 2319592 1 Cap kimi(s) Oral two times a day 03/24/2020 03/23/2020 Inactive propranolol 20 mg tablet RxNorm: 349798 TAKE 1 TABLET BY MOUTH TWICE DAILY 03/15/2020 04/13/2020 Inactive Eliquis 5 mg tablet RxNorm: 5555440 1 Tablet(s) Oral two times a da y 03/14/2020 04/24/2020 Inactive Eliquis 5 mg tablet RxNorm: 4702068 1 Tablet(s) Oral two times a da y 03/14/2020 03/13/2020 Inactive levofloxacin 500 mg tablet RxNorm: 843933 1 Tablet(s) Oral QD 02/1802/26/2020 Inactive levofloxacin 500 mg tablet RxNorm: 138900 1 Tablet(s) Oral QD 02/1802/18/2020 Inactive Tessalon Perles 100 mg capsule RxNorm: 097226 1 Capsule (s) Oral three times a day as needed 02/16/2020 02/25/2020 Inactive levothyroxine 137 mcg tablet RxNorm: 495872 TAKE 1 TABLET BY [facility] ONCE DAILY 02/15/2020 03/15/2020 Inactive ProAir HFA 90 mcg/actuation aerosol inhaler RxNorm: 752875 2 Inhalation Q4H as needed 02/11/2020 09/18/2020 Inactive Medrol (Isaiah) 4 mg tablets in a dose pack RxNorm: 221086 Tablet( s) Oral 02/11/2020 02/11/2020 Inactive levothyroxine 137 mcg tablet RxNorm: 924380 TAKE 1 TABLET BY [facility] ONCE DAILY 12/16/2019 01/14/2020 Inactive propranolol 20 mg tablet RxNorm: 776040 TAKE 1 TABLET BY MOUTH TWICE DAILY 12/16/2019 01/14/2020 Inactive levothyroxine 137 mcg tablet RxNorm: 051015 TAKE 1 TABLET BY [facility] ONCE DAILY 10/16/2019 11/14/2019 Inactive prednisone 20 mg tablet RxNorm: 285321 1 Tablet(s) Oral two times a day for rash/hives 09/29/2019 10/04/2019 Inactive Probiotic 10 billion cell capsule RxNorm: 0737524 1 Capsule(s) O ral QD 09/14/2019 02/10/2020 Inactive Bactrim DS 800 mg-160 mg tablet RxNorm: 539675 1 Tablet(s) Oral two times a day 09/14/2019 09/13/2019 Inactive citalopram 10 mg tablet RxNorm: 917530 1 Tablet(s) Oral two antonio es a day 09/14/2019 12/20/2019 Inactive hydroxychloroquine 200 mg tablet RxNorm: 025024 1 Table t(s) Oral two times a day 09/14/2019 02/05/2022 Inactive Bactrim DS 800 mg-160 mg tablet RxNorm: 503886 1 Tablet(s) Oral two times a day 09/14/2019 09/24/2019 Inactive Cipro 250 mg tablet RxNorm: 968886 1 Tablet(s) Oral two times a day 09/02/2019 09/08/2019 Inactive levothyroxine 137 mcg tablet RxNorm: 634743 1 Tablet(s) Oral QD 10/10/2019 Inactive levothyroxine 137 mcg tablet RxNorm: 444819 1 Tablet(s) Oral QD 08/11/2019 Inactive propranolol 20 mg tablet RxNorm: 653175 TAKE 1 TABLET BY MOUTH TWICE DAILY 06/18/2019 12/14/2019 Inactive 06/18/2019 11:09:41 AM Cipro 250 mg tablet RxNorm: 748064 1 Tablet(s) Oral two times a day 04/17/2019 04/16/2019 Inactive Cipro 250 mg tablet RxNorm: 380721 1 Tablet(s) Oral two times a day 04/17/2019 04/24/2019 Inactive Macrobid 100 mg capsule RxNorm: 427315 1 Capsule(s) Oral two ti mes a day 04/15/2019 04/16/2019 Inactive metronidazole 500 mg tablet RxNorm: 247905 1 Tablet(s) Oral thr ee times a day 03/18/2019 03/28/2019 Inactive Bactrim DS 800 mg-160 mg tablet RxNorm: 112013 1 Tablet(s) Oral two times a day 03/18/2019 03/18/2019 Inactive Cipro 250 mg tablet RxNorm: 506358 1 Tablet(s) PO BID 01/26/201901/22 Inactive Flagyl 500 mg tablet RxNorm: 332829 1 Tablet(s) PO TID 01/26/201904/2019 Inactive prednisone 20 mg tablet RxNorm: 519706 1 Tablet(s) PO B ID for 4 days then 1 po daily for 4 days 01/08/2019 03/17/2019 Inactive doxycycline hyclate 100 mg capsule RxNorm: 5347069 1 Capsule(s) PO BID 01/08/2019 01/14/2019 Inactive doxycycline hyclate 100 mg capsule RxNorm: 2339807 1 Capsule(s) PO BID 01/08/2019 01/07/2019 Inactive propranolol 20 mg tablet RxNorm: 662359 1 Tablet(s) PO BID 12/24/1906/17/2019 Inactive Bactrim DS 800 mg-160 mg tablet RxNorm: 044110 1 Tablet (s) PO BID repeat urine culture 48 hours after antibiotics completed. 12/15/2018 12/14/2018 In active Bactrim DS 800 mg-160 mg tablet RxNorm: 342672 1 Tablet (s) PO BID repeat urine culture 48 hours after antibiotics completed. 12/15/2018 12/19/2018 In active levothyroxine 137 mcg tablet RxNorm: 309844 1 Tablet(s) PO QD 12/0906/06/2019 Inactive meclizine 25 mg tablet RxNorm: 440801 1 Tablet(s) PO TID for di zziness 10/30/2018 11/08/2018 Inactive doxycycline hyclate 100 mg tablet RxNorm: 5467261 1 Tablet(s) PO BI D 10/07/2018 10/16/2018 Inactive albuterol sulfate HFA 90 mcg/actuation aerosol inhaler RxNor m: 396831 2 Puff(s) INH Q4H as needed 10/07/2018 02/10/2020 Inactive chlorpheniramine 4 mg tablet RxNorm: 6233095 1 Tablet(s) PO QHS for allergies 10/07/2018 03/17/2019 Inactive Tessalon 200 mg capsule RxNorm: 469153 1 Capsule(s) PO TID 10/08/1910/26/2018 Inactive doxycycline hyclate 100 mg tablet RxNorm: 6338149 1 Tablet(s) PO BI D 10/07/2018 10/06/2018 Inactive Tessalon 200 mg capsule RxNorm: 666442 1 Capsule(s) PO TID 10/08/1910/06/2018 Inactive levothyroxine 137 mcg tablet RxNorm: 564511 1 Tablet(s) PO QD 08/0512/02/2018 Inactive propranolol 20 mg tablet RxNorm: 910587 1 Tablet(s) PO BID 06/23/2012/19/2018 Inactive chlorpheniramine 4 mg tablet RxNorm: 2802935 1 Tablet(s) PO QHS for allergies 06/23/2018 08/21/2018 Inactive levothyroxine 137 mcg tablet RxNorm: 702562 1 Tablet(s) PO QD 06/0308/01/2018 Inactive levothyroxine 137 mcg tablet RxNorm: 015429 1 Tablet(s) PO QD 06/0306/02/2018 Inactive Synthroid 150 mcg tablet RxNorm: 696481 1 Tablet(s) PO QD 04/03/2018 06/22/2018 Inactive Synthroid 150 mcg tablet RxNorm: 220830 1 Tablet(s) PO QD 04/03/2018 04/02/2018 Inactive propranolol 20 mg tablet RxNorm: 723298 1 Tablet(s) PO BID 03/17/20 18 06/14/2018 Inactive propranolol 20 mg tablet RxNorm: 286868 1 Tablet(s) PO BID 03/17/20 18 06/21/2020 Inactive Lancets,Ultra Thin RxNorm: Miscellaneous Use to test blood sugar daily and as needed (Dx: E11.65) 02/28/2018 05/09/2022 Inactive Contour Test Strips RxNorm: Miscellaneous Test b lood sugar daily and as needed (Dx: E11.65) 02/28/2018 05/09/2022 Inactive Contour Meter RxNorm: 1 Miscellaneous DX: E11.65 02/27/20182021 Inactive DX: E11.65 Synthroid 175 mcg tablet RxNorm: 240064 1 Tablet(s) PO QD 01/28/2018 04/02/2018 Inactive Synthroid 175 mcg tablet RxNorm: 376323 1 Tablet(s) PO QD 01/16/2018 04/02/2018 Inactive Medrol (Isaiah) 4 mg tablets in a dose pack RxNorm: 945476 Tablet(s) P O 10/16/2017 01/15/2018 Inactive cyclobenzaprine 7.5 mg tablet RxNorm: 982501 1/2-1 Tablet(s) PO TID as needed 10/16/2017 06/22/2018 Inactive pantoprazole 40 mg tablet,delayed release RxNorm: 475795 1 Tabl et(s) PO QD 08/21/2017 06/22/2018 Inactive Nexium 40 mg capsule,delayed release RxNorm: 173498 1 Capsule(s ) PO QD 08/20/2017 08/20/2017 Inactive doxycycline hyclate 100 mg capsule RxNorm: 7051819 1 Capsule(s) PO BID 08/13/2017 08/12/2017 Inactive doxycycline hyclate 100 mg capsule RxNorm: 3972176 1 Capsule(s) PO BID 08/13/2017 08/19/2017 Inactive Tessalon Perles 100 mg capsule RxNorm: 070310 1 Capsule(s) PO T ID as needed 07/29/2017 08/07/2017 Inactive prednisone 20 mg tablet RxNorm: 461697 1 Tablet(s) PO BID 07/25/2017 07/27/2017 Inactive albuterol sulfate HFA 90 mcg/actuation aerosol inhaler RxNor m: 582450 2 Puff(s) INH Q4H as needed 07/25/2017 10/06/2018 Inactive doxycycline hyclate 100 mg capsule RxNorm: 8652646 1 Capsule(s) PO BID 06/10/2017 06/19/2017 Inactive prednisone 20 mg tablet RxNorm: 365341 1 Tablet(s) PO T ID for 2 days then 1 po BID for 2 days then 1 daily for 3 days 06/10/2017 08/12/2017 Inactive fenofibrate micronized 134 mg capsule RxNorm: 445175 TAKE 1 CAP KIMI DAILY 06/03/2017 06/22/2018 Inactive Zithromax Z-Isaiah 250 mg tablet RxNorm: 140985 Tablet(s) PO Take as directed 05/28/2017 06/09/2017 Inactive prednisone 20 mg tablet RxNorm: 060403 2 Tablet(s) PO QD 05/28/2017 1 08/01/2016 Inactive Tessalon Perles 100 mg capsule RxNorm: 961786 1 Capsule(s) PO T ID as needed 05/28/2017 06/09/2017 Inactive Janumet XR 100 mg-1,000 mg tablet,extended release RxNorm: 1 907835 1 Tablet(s) PO QD 02/14/2017 06/22/2018 Inactive fluoxetine 40 mg capsule RxNorm: 082347 1 Capsule(s) PO QD 02/15/20 17 06/22/2018 Inactive Vitamin D2 50,000 unit capsule RxNorm: 205074 1 Capsule (s) PO TAKE 1 CAPSULE BY MOUTH TWICE WEEKLY 02/11/2017 07/10/2017 Inactive Generic For:* DRISDOL 02/03/2015 10:10:59 AM Janumet XR 100 mg-1,000 mg tablet,extended release RxNorm: 1 953517 1 Tablet(s) PO QD 09/24/2016 10/06/2018 Inactive Vitamin D2 50,000 unit capsule RxNorm: 115564 Capsule(s ) TAKE 1 CAPSULE BY MOUTH TWICE WEEKLY 09/11/2016 02/11/2017 Inactive Generic For:*VERN NAVARRETEOL [id number] 02/03/2015 10:10:59 AM Pepcid 20 mg tablet RxNorm: 542402 Tablet(s) PO TAKE 1 TABLET BY MOUTH TWICE DAILY. 06/14/2016 06/13/2016 Inactive fluoxetine 40 mg capsule RxNorm: 033087 1 Capsule(s) PO QD 06/14/20 16 12/10/2016 Inactive loratadine 10 mg tablet RxNorm: 915183 1 Tablet(s) PO QD 1 Tabl et(s) PO BID 06/14/2016 04/03/2017 Inactive [AttnRPh: Saving ryan ly/adjudicate RxGRP:SG20 RxBIN:[id number] RxPCN: ID#:[id number]] Vitamin D2 50,000 unit capsule RxNorm: 107299 Capsule(s ) TAKE 1 CAPSULE BY MOUTH TWICE WEEKLY 06/14/2016 09/10/2016 Inactive Generic For:*VERN NAVARRETEOL [id number] 02/03/2015 10:10:59 AM Synthroid 175 mcg tablet RxNorm: 744738 1 Tablet(s) PO Saturday t hrough Saturday QD 06/05/2016 01/15/2018 Inactive Synthroid 150 mcg tablet RxNorm: 410233 1 Tablet(s) PO Sat and Sun 11/09/2015 06/04/2016 Inactive Synthroid 175 mcg tablet RxNorm: 176953 1 Tablet(s) PO Saturday t hrough Saturday11/09/2015 06/04/2016 Inactive Synthroid 150 mcg tablet RxNorm: 088764 1 Tablet(s) PO Sat and Sun , Sat, Sun 11/09/2015 11/08/2015 Inactive Janumet XR 100 mg-1,000 mg tablet,extended release RxNorm: 1 271224 TAKE 1 TABLET DAILY 09/30/2015 09/24/2016 Inactive azithromycin 500 mg tablet RxNorm: 997167 1 Tablet(s) PO QD 016 07/25/2015 Inactive azithromycin 500 mg tablet RxNorm: 609843 1 Tablet(s) PO QD 016 08/01/2015 Inactive loratadine 10 mg tablet RxNorm: 501181 1 Tablet(s) PO BID 04/06/2015 06/14/2016 Inactive [AttnRPh: Saving apply/adjudicate RxGRP: SG20 RxBIN:[id number] RxPCN: ID#:[id number]] Synthroid 175 mcg tablet RxNorm: 818454 1 Tablet(s) PO M, W, F 10/201411/08/2015 Inactive Synthroid 150 mcg tablet RxNorm: 716194 1 Tablet(s) PO QD Tu, T h, Sat, Sun 03/28/2015 11/08/2015 Inactive propranolol 20 mg tablet RxNorm: 783233 1 Tablet(s) PO BID 02/09/20 15 06/13/2016 Inactive fluoxetine 40 mg capsule RxNorm: 329057 1 Capsule(s) PO QD 02/09/20 15 06/14/2016 Inactive Vitamin D2 50,000 unit capsule RxNorm: 718183 TAKE 1 CA PSULE BY MOUTH TWICE WEEKLY 02/03/2015 06/14/2016 Inactive Generic For:*VERN FREEDMAN [id number] 02/03/2015 10:10:59 AM Lipitor 80 mg tablet RxNorm: 071435 1 Tablet(s) PO QD 01/24/201507/26 Inactive [AttnRPh: Saving apply/adjudicate RxGRP: SG20 RxBIN:[id number] RxPCN: ID#:[id number]] Bactrim DS 800 mg-160 mg tablet RxNorm: 778284 1 Tablet(s) PO BID 0 01/12/2015 01/11/2015 Inactive Synthroid 150 mcg tablet RxNorm: 026129 1 Tablet(s) PO QD 01/12/2015 03/27/2015 Inactive Bactrim DS 800 mg-160 mg tablet RxNorm: 672173 1 Tablet(s) PO BID 0 01/12/2015 01/18/2015 Inactive fluoxetine 40 mg capsule RxNorm: 932789 1 Capsule(s) PO QD 01/12/20 15 02/07/2015 Inactive Synthroid 137 mcg tablet RxNorm: 054550 1 Tablet(s) PO QD 12/08/2014 01/11/2015 Inactive [AttnRPh: Saving apply/adjudicate RxGRP: SG20 RxBIN:[id number] RxPCN: ID#:[id number]] Medrol (Isaiah) 4 mg tablets in a dose pack RxNorm: 999185 6 Tablet(s) PO QD --then as directed 11/24/2014 11/29/2014 Inactive albuterol sulfate HFA 90 mcg/actuation aerosol inhaler RxNor m: 005925 2 Puff(s) INH Q4H as needed 10/27/2014 07/24/2017 Inactive phenazopyridine 100 mg tablet RxNorm: 7149592 1 Tablet(s) PO TID 11/07/2015 Inactive [AttnRPh: Saving apply/adjud icate RxGRP:SG20 RxBIN:[id number] RxPCN: ID#:[id number]] Macrobid 100 mg capsule RxNorm: 422428 1 Capsule(s) PO BID 10/28/19 15 11/02/2014 Inactive [SAVINGS FOR NON-COVERED RUBIO GS -- BIN:[id number], PCN: ASPROD1, Group: XXXXX, ID# [id number], Questions: . THIS IS NOT INSURANCE.] prednisone 20 mg tablet RxNorm: 313352 1 Tablet(s) PO BID 10/27/2014 10/31/2014 Inactive AttnRPh: Saving apply/adjudicate RxGRP:S G20 RxBIN:[id number] RxPCN:HT ID#:[id number]: Saving apply/adjudicate RxGRP:SG20 RxBIN:[id number] RxPCN:HT ID#:[id number] Macrobid 100 mg capsule RxNorm: 301057 1 Capsule(s) PO BID 09/24/19 15 09/29/2014 Inactive [SAVINGS FOR NON-COVERED RUBIO GS -- BIN:261642, PCN: ASPROD1, Group: XXXXX, ID# [id number], Questions: . THIS IS NOT INSURANCE.] phenazopyridine 100 mg tablet RxNorm: 1388360 1 Tablet(s) PO TID 09/24/2014 Inactive [SAVINGS FOR NON-COVERED RUBIO GS -- BIN:403462, PCN: ASPROD1, Group: XXXXX, ID# [id number], Questions: . THIS IS NOT INSURANCE.] propranolol 60 mg tablet RxNorm: 441849 1 Tablet(s) PO QD 07/26/2014 02/07/2015 Inactive [SAVINGS FOR UNINSURED PATIENTS -- BIN:0 [id number], PCN: ASPROD1, Group: [id number], ID# [id number], Process claim through [employer], for questions: . THIS IS NOT INSURANCE.] loratadine 10 mg tablet RxNorm: 956358 1 Tablet(s) PO BID 07/12/2014 07/11/2014 Inactive [AttnRPh: Saving apply/adjudicate RxGRP: [id number] RxBIN:[id number] RxPCN: ID#:[id number]] loratadine 10 mg tablet RxNorm: 617899 1 Tablet(s) PO BID 07/12/2014 10/06/2018 Inactive [SAVINGS FOR UNINSURED PATIENTS -- BIN:0 28082, PCN: ASPROD1, Group: [id number], ID# [id number], Process claim through [employer], for questions: . THIS IS NOT INSURANCE.] Vitamin D2 50,000 unit capsule RxNorm: 627264 1 Capsule (s) PO Take 1 capsule by mouth twice weekly 05/18/2014 02/02/2015 Inactive Pepcid 20 mg tablet RxNorm: 239605 TAKE 1 TABLET BY MOUTH TWICE DAILY. 05/18/2014 06/14/2016 Inactive Generic For:PEPCID 2 0MG 05/18/2014 11:28:51 AM Janumet XR 100 mg-1,000 mg tablet,extended release RxNorm: 1 160573 1 Tablet(s) PO QD 05/12/2014 08/09/2014 Inactive [SAVINGS FOR UNI NSURED PATIENTS -- BIN:[id number], PCN: ASPROD1, Group: [id number], ID# [id number], Process claim through [employer], for questions: . THIS IS NOT INSURANCE.] Voltaren 1 % topical gel RxNorm: 339167 TOP BID 04/21/2014 5 Inactive Apply to affected areas 2-3 times daily as needed. Trilipix 135 mg capsule,delayed release RxNorm: 483787 1 Tablet(s) PO QD 1 Capsule(s) PO QD 04/21/2014 09/17/2014 Inactive may do 90 day f ill if desired Synthroid 137 mcg tablet RxNorm: 436322 1 Tablet(s) PO QD 03/30/2014 09/25/2014 Inactive [AttnRPh: Saving apply/adjudicate RxGRP: SG20 RxBIN:[id number] RxPCN:HT ID#:[id number]] Cipro 250 mg tablet RxNorm: 136701 1 Tablet(s) PO BID 03/30/201403/24 Inactive [SAVINGS FOR UNINSURED PATIENTS -- BIN:0 [id number], PCN: ASPROD1, Group: [id number], ID# [id number], Process claim through MedImp[employer], for questions: . THIS IS NOT INSURANCE.] Janumet XR 100 mg-1,000 mg tablet,extended release RxNorm: 1 189251 2 Tablet(s) PO QD 01/06/2014 01/05/2014 Inactive [SAVINGS FOR UNI NSURED PATIENTS -- BIN:[id number], PCN: ASPROD1, Group: [id number], ID# [id number], Process claim through [employer], for questions: . THIS IS NOT INSURANCE.] Janumet XR 100 mg-1,000 mg tablet,extended release RxNorm: 1 498080 1 Tablet(s) PO QD 01/06/2014 04/05/2014 Inactive [SAVINGS FOR UNI NSURED PATIENTS -- BIN:552323, PCN: ASPROD1, Group: [id number], ID# [id number], Process claim through [employer], for questions: . THIS IS NOT INSURANCE.] propranolol 60 mg tablet RxNorm: 638693 1 Tablet(s) PO QD 12/28/2013 07/26/2014 Inactive [AttnRPh: Saving apply/adjudicate RxGRP: SG20 RxBIN:[id number] RxPCN:HT ID#:[id number]] Synthroid 150 mcg tablet RxNorm: 236341 1 Tablet(s) PO QD brand onl y 12/28/2013 04/20/2014 Inactive [AttnRPh: Saving apply/adjud icate RxGRP:SG20 RxBIN:[id number] RxPCN:HT ID#:[id number]] Vitamin D2 50,000 unit capsule RxNorm: 014330 1 Capsule (s) PO Take 1 capsule by mouth twice weekly 12/02/2013 05/17/2014 Inactive Lipitor 80 mg tablet RxNorm: 500173 1 Tablet(s) PO QD 11/24/201305/25 Inactive [AttnRPh: Saving apply/adjudicate RxGRP: SG20 RxBIN:[id number] RxPCN:HT ID#:[id number]] loratadine 10 mg tablet RxNorm: 810378 1 Tablet(s) PO BID 11/17/2013 07/12/2014 Inactive fluoxetine 20 mg capsule RxNorm: 738661 1 Capsule(s) PO QAM TAKE ONE CAPSULE BY MOUTH ONCE DAILY IN THE MORNING. 11/04/2013 01/10/2015 Inactive Generic For:PROZAC 20MG Generic For:PROZAC 20MG 06/23/2013 11:55:55 AM [AttnRPh: Saving apply/adjudicate RxGRP:SG20 RxBIN:[id number] RxPCN:HT ID#:[id number]] Vytorin 10 mg-80 mg tablet RxNorm: 1485794 Tablet(s) PO TAKE ONE TABLET BY MOUTH ONCE DAILY IN THE EVENING. 09/30/2013 11/23/2013 Inactive Trilipix 135 mg capsule,delayed release RxNorm: 199740 1 Capsul e(s) PO QD 07/15/2013 04/21/2014 Inactive may do 90 day fill i f desired Voltaren 1 % topical gel RxNorm: 690128 TOP BID 07/15/2013 4 Inactive Apply to affected areas 2-3 times daily as needed. Wellbutrin XL 300 mg 24 hr tablet, extended release RxNorm: 287815 1 Tablet(s) PO QAM 06/29/2013 04/03/2017 Inactive fluoxetine 20 mg capsule RxNorm: 013079 1 Capsule(s) PO QAM TAKE ONE CAPSULE BY MOUTH ONCE DAILY IN THE MORNING. 06/29/2013 11/04/2013 Inactive Generic For:PROZAC 20MG Generic For:PROZAC 20MG 06/23/2013 11:55:55 AM fluoxetine 20 mg capsule RxNorm: 544584 Capsule(s) PO T BRIA ONE CAPSULE BY MOUTH ONCE DAILY IN THE MORNING. 06/23/2013 06/28/2013 Inactive Gener ic For:PROZAC 20MG Generic For:PROZAC 20MG 06/23/2013 11:55:55 AM Synthroid 150 mcg tablet RxNorm: 411706 1 Tablet(s) PO QD brand onl y 06/08/2013 12/04/2013 Inactive Vytorin 10 mg-80 mg tablet RxNorm: 8127251 1 Tablet(s) PO QD 201209/05/2013 Inactive TAKE 1 TABLET BY MOUTH DAILY propranolol 60 mg tablet RxNorm: 245235 1 Tablet(s) PO QD 06/08/2013 12/04/2013 Inactive Pepcid 20 mg tablet RxNorm: 140307 Tablet(s) PO TAKE 1 TABLET BY MOUTH TWICE DAILY. 06/04/2013 11/23/2013 Inactive fluoxetine 20 mg capsule RxNorm: 312715 1 Capsule(s) PO QAM 013 06/22/2013 Inactive Wellbutrin XL 300 mg 24 hr tablet, extended release RxNorm: 828950 1 Tablet(s) PO QAM 05/26/2013 06/28/2013 Inactive Wellbutrin XL 150 mg 24 hr tablet, extended release RxNorm: 564746 1 Tablet(s) PO QD 05/15/2013 05/25/2013 Inactive Wellbutrin XL 150 mg 24 hr tablet, extended release RxNorm: 678413 1 Tablet(s) PO QD 05/15/2013 05/14/2013 Inactive Kombiglyze XR 5 mg-500 mg tablet,extended release RxNorm: 10 84818 1 Tablet(s) PO QD 05/07/2013 05/15/2013 Inactive cefdinir 300 mg capsule RxNorm: 461101 2 Capsule(s) PO QD 04/23/2013 05/02/2013 Inactive AttnRPh: Saving apply/adjudicate RxGRP:S G20 RxBIN:[id number] RxPCN: ID#:[id number] Pepcid 20 mg tablet RxNorm: 704456 Tablet(s) PO TAKE 1 TABLET BY MOUTH TWICE DAILY. 04/17/2013 06/13/2016 Inactive Pepcid 20 mg tablet RxNorm: 894978 1 Tablet(s) PO BID 04/06/201305/24 Inactive Vytorin 10-80 10 mg-80 mg tablet RxNorm: 530206 1 Tablet(s) PO QD 0 02/19/2013 06/08/2013 Inactive TAKE 1 TABLET BY MOUTH DAILY loratadine 10 mg tablet RxNorm: 027901 1 Tablet(s) PO BID 01/23/2013 07/21/2013 Inactive Synthroid 150 mcg tablet RxNorm: 701873 1 Tablet(s) PO QD brand onl y 12/02/2012 06/08/2013 Inactive propranolol 60 mg tablet RxNorm: 032084 1 Tablet(s) PO QD 12/02/2012 06/08/2013 Inactive Trilipix 135 mg capsule,delayed release RxNorm: 520771 1 Capsul e(s) PO QD 12/02/2012 05/30/2013 Inactive may do 90 day fill i f desired Pepcid 20 mg tablet RxNorm: 202649 1 Tablet(s) PO BID 11/27/201203/24 Inactive Effexor XR 150 mg capsule,extended release RxNorm: 783523 1 Cap kimi(s) PO QD 11/24/2012 05/14/2013 Inactive Vytorin 10-80 10 mg-80 mg tablet RxNorm: 648092 1 Tablet(s) PO QD 0 11/24/2012 2013 Inactive TAKE 1 TABLET BY MOUTH DAILY Vytorin 10-80 10 mg-80 mg tablet RxNorm: 724687 1 Tablet(s) PO QD 0 11/21/2012 11/24/2012 Inactive TAKE 1 TABLET BY MOUTH DAILY Effexor XR 150 mg capsule,extended release RxNorm: 370373 1 Cap kimi(s) PO QD 11/21/2012 11/24/2012 Inactive loratadine 10 mg tablet RxNorm: 0740939 1 Tablet(s) PO BID 11/12/19 13 01/23/2013 Inactive Vytorin 10-80 10 mg-80 mg tablet RxNorm: 570666 Tablet( s) PO TAKE 1 TABLET BY MOUTH ONCE DAILY. 10/15/2012 11/21/2012 Inactive Vytorin 10-80 10 mg-80 mg tablet RxNorm: 936049 1 Tablet(s) PO QD 0 10/15/2012 11/20/2012 Inactive TAKE 1 TABLET BY MOUTH DAILY Effexor XR 150 mg capsule,extended release RxNorm: 717720 1 Cap kimi(s) PO QD 10/15/2012 11/20/2012 Inactive Effexor XR 150 mg capsule,extended release RxNorm: 122231 Capsule(s) PO TAKE 1 CAPSULE BY MOUTH ONCE DAILY 10/15/2012 11/21/2012 Inactive azithromycin 250 mg tablet RxNorm: 693900 2 Tablet(s) PO QD 013 09/10/2012 Inactive Culturelle 10 billion cell capsule RxNorm: 144687 1 Cap kimi(s) PO BID for diarrhea maintenance 09/03/2012 10/02/2012 Inactive Medrol (Isaiah) 4 mg tablets in a dose pack RxNorm: 499504 Tablet(s) PO as directed 09/03/2012 07/11/2011 Active as directed Culturelle 10 billion cell capsule RxNorm: 055676 1 Capsule(s) PO BID 07/23/2012 08/21/2012 Inactive Vitamin D2 50,000 unit capsule RxNorm: 721965 Capsule(s ) PO TAKE 1 CAPSULE EVERY DAY SATURDAY THRU Saturday07/09/2012 08/20/2013 Inactive Vitamin D2 50,000 unit capsule RxNorm: 1222912 Capsule(s ) PO TAKE 1 CAPSULE EVERY DAY SATURDAY THRU Saturday07/07/2012 07/08/2012 Inactive Vitamin D2 50,000 unit capsule RxNorm: 9182832 Capsule(s ) PO TAKE 1 CAPSULE EVERY DAY SATURDAY THRU Saturday07/07/2012 07/06/2012 Inactive Vitamin D2 50,000 unit capsule RxNorm: 6954041 Capsule(s ) PO TAKE 1 CAPSULE EVERY DAY SATURDAY THRU Saturday06/27/2012 07/06/2012 Inactive Synthroid 150 mcg tablet RxNorm: 862677 1 Tablet(s) PO QD brand onl y 06/09/2012 12/02/2012 Inactive metformin 1,000 mg tablet RxNorm: 677610 1 Tablet(s) PO BID rep laces 500mg dose 05/20/2012 11/10/2012 Inactive propranolol 60 mg tablet RxNorm: 898646 1 Tablet(s) PO QD 04/23/2012 12/02/2012 Inactive Effexor XR 150 mg capsule,extended release RxNorm: 112141 1 Cap kimi(s) PO QD 04/04/2012 09/30/2012 Inactive Zyrtec 10 mg tablet RxNorm: 5099663 1 Tablet(s) PO QD 04/04/201203/24 Inactive Trilipix 135 mg capsule,delayed release RxNorm: 408850 1 Capsul e(s) PO QD 03/19/2012 12/02/2012 Inactive may do 90 day fill i f desired Vytorin 10-80 10 mg-80 mg tablet RxNorm: 114167 1 Tablet(s) PO QD 0 01/31/2012 07/28/2012 Inactive TAKE 1 TABLET BY MOUTH DAILY Voltaren 1 % topical gel RxNorm: 872361 TOP BID 01/25/2012 4 Inactive Apply to affected areas 2-3 times daily as needed. Synthroid 150 mcg tablet RxNorm: 358642 1 Tablet(s) PO QD brand onl y 01/02/2012 06/09/2012 Inactive metformin ER 1,000 mg 24 hr Tab Ctrl Rel RxNorm: 163553 1 Table t(s) PO QD 01/02/2012 05/19/2012 Inactive metformin ER 500 mg 24 hr Tab RxNorm: 515170 Tablet(s) PO 12/21/2011 01/01/2012 Inactive TAKE 1 TABLET BY MOUTH ONCE DAILY. Voltaren 1 % Topical Gel RxNorm: 431574 TOP BID 11/28/2011 2 Inactive Apply to affected areas 2-3 times daily as needed. propranolol 60 mg tablet RxNorm: 611827 1 Tablet(s) PO QD 10/17/2011 04/23/2012 Inactive Effexor XR 150 mg capsule,extended release RxNorm: 671602 1 Cap kimi(s) PO QD 09/13/2011 04/04/2012 Inactive Medrol (Isaiah) 4 mg tablets in a dose pack RxNorm: 505663 Tablet(s) PO as directed 09/04/2011 07/11/2011 Active as directed doxycycline hyclate 100 mg Tab RxNorm: 0961860 1 Tablet(s) PO BID 0 09/04/2011 09/13/2011 Inactive doxycycline monohydrate 100 mg Tab RxNorm: 2428196 1 Tablet(s) P O BID 07/25/2011 08/03/2011 Inactive prednisone 10 mg Tab RxNorm: 271955 1 Tablet(s) PO TID 07/25/201112/2011 Inactive Synthroid 150 mcg Tab RxNorm: 457617 1 Tablet(s) PO QD brand only 0 07/12/2011 01/02/2012 Inactive Vytorin 10-80 10 mg-80 mg Tab RxNorm: 303627 1 Tablet(s) PO QD 05/2601/31/2012 Inactive TAKE 1 TABLET BY MOUTH DAILY Vitamin D2 50,000 unit capsule RxNorm: 0769492 1 Capsule(s) PO Q D M-F 05/15/2011 06/26/2012 Inactive TAKE 1 CAPSULE BY [facility] DAILY SATURDAY THROUGH FRIDAYS Synthroid 150 mcg Tab RxNorm: 907810 1 Tablet(s) PO QD brand only 1 07/09/2010 07/11/2011 Inactive doxycycline monohydrate 100 mg Tab RxNorm: 4375629 1 Tablet(s) P O BID 04/25/2011 05/04/2011 Inactive Trilipix 135 mg capsule,delayed release RxNorm: 867185 1 Capsul e(s) PO QD 04/23/2011 03/19/2012 Inactive cefdinir 300 mg Cap RxNorm: 943387 1 Capsule(s) PO BID 04/04/2011 Inactive propranolol 60 mg Tab RxNorm: 463519 1 Tablet(s) PO QD 03/26/2011 Inactive Ultram 50 mg Tab RxNorm: 557530 1-2 Tablet(s) PO QID 03/22/201103/21 Active prn pain metformin ER 500 mg 24 hr Tab RxNorm: 578844 1 Tablet(s) PO QD 06/201006/21/2011 Inactive Synthroid 150 mcg Tab RxNorm: 826385 1 Tablet(s) PO QD 02/22/201112/2010 Inactive Vytorin 10-80 10 mg-80 mg Tab RxNorm: 847767 1 Tablet(s) PO QD 01/2303/13/2011 Inactive TAKE 1 TABLET BY MOUTH DAILY Trilipix 135 mg Cap RxNorm: 402952 1 Capsule(s) PO QD 01/10/201103/26 Inactive Effexor XR 150 mg 24 hr Cap RxNorm: 627876 1 Capsule(s) PO QD 01/0908/06/2011 Inactive Vitamin D 50,000 unit Cap RxNorm: 5185573 Capsule(s) PO 12/20/2010 Inactive TAKE 1 CAPSULE BY MOUTH DAILY Fridays Septra DS 800 mg-160 mg Tab RxNorm: 854080 1 Tablet(s) PO BID 12/0712/16/2010 Inactive mupirocin 2 % Ointment RxNorm: 053701 1 Application TOP BID Apply to affected area twice daily 12/07/2010 12/13/2010 Inactive Trilipix 135 mg Cap RxNorm: 447868 1 Capsule(s) PO QD 10/16/201003/26 Inactive Synthroid 150 mcg Tab RxNorm: 972511 1 Tablet(s) PO QD 10/09/201006/2010 Inactive metformin ER 500 mg 24 hr Tab RxNorm: 646579 1 Tablet(s) PO QD 09/2202/22/2011 Inactive Nexium 40 mg Cap RxNorm: 814484 1 Capsule(s) PO QD 10/05/2010 019 Inactive Vytorin 10-80 10 mg-80 mg Tab RxNorm: 536071 1 Tablet(s) PO QD 09/201002/12/2011 Inactive propranolol 60 mg Tab RxNorm: 318192 1 Tablet(s) PO QD 09/18/201008/2010 Inactive Synthroid 125 mcg Tab RxNorm: 070791 1 Tablet(s) PO QD 08/07/2010 Inactive Synthroid 125 mcg Tab RxNorm: 148941 1 Tablet(s) PO QD 08/07/2010 Inactive Voltaren 1 % Topical Gel RxNorm: 514212 TOP BID Apply t o affected areas 2-3 times daily as needed. 08/01/2010 11/28/2011 Inactive Voltaren 1 % Topical Gel RxNorm: 178170 TOP BID Apply t o affected areas 2-3 times daily as needed. 07/04/2010 07/31/2010 Inactive Advair Diskus 250 mcg-50 mcg/dose for Inhalation RxNorm: 135 9859 1 Puff(s) INH Q12H 07/04/2010 07/11/2011 Inactive Effexor XR 150 mg 24 hr Cap RxNorm: 791598 1 Capsule(s) PO QD 06/0801/03/2011 Inactive Synthroid 100 mcg Tab RxNorm: 793883 1 Tablet(s) PO QD 06/06/2010 Inactive Vitamin D 50,000 unit Cap RxNorm: 9500481 1 Capsule(s) PO QD M-F 05/15/2011 Inactive Synthroid 150 mcg Tab RxNorm: 025460 1 Tablet(s) PO 05/25/20102010 Inactive Vytorin 10-80 10 mg-80 mg Tab RxNorm: 559597 1 Tablet(s) PO QD 04/2509/25/2010 Inactive Trilipix 135 mg Cap RxNorm: 818545 1 Capsule(s) PO QD 04/17/201009/23 Inactive propranolol 60 mg Tab RxNorm: 207809 1 Tablet(s) PO QD 01/09/2010 Inactive Advair Diskus 250 mcg-50 mcg/dose for Inhalation RxNorm: 135 9859 1 Puff(s) INH Q12H 12/26/2009 07/04/2010 Inactive Advair Diskus 250 mcg-50 mcg/Dose for Inhalation RxNorm: 135 9859 1 Puff(s) INH Q12H 11/26/2009 12/25/2009 Inactive Synthroid 200 mcg Tab RxNorm: 620914 1 Tablet(s) PO QD 11/24/2009 Inactive Effexor XR 150 mg 24 hr Cap RxNorm: 941990 1 Capsule(s) PO QD 10/2705/24/2010 Inactive Lisinopril 10 mg Tab RxNorm: 643473 1 Tablet(s) PO QD 10/17/200909/23 Inactive Propranolol 60 mg Tab RxNorm: 098438 1 Tablet(s) PO QD 10/17/2009 Inactive Septra DS 160 mg-800 mg Tab RxNorm: 303928 1 Tablet(s) PO BID 10/0410/08/2009 Inactive Mupirocin 2 % Ointment RxNorm: 531635 TOP Q6-8H 10/04/2009 10/10/2009 Inactive Voltaren 1 % Topical Gel RxNorm: 828331 TOP BID Apply t o affected areas 2-3 times daily as needed. 09/21/2009 03/19/2010 Inactive Trilipix 135 mg Cap RxNorm: 386199 1 Capsule(s) PO QD 09/20/200902/23 Inactive Nexium 40 mg Cap RxNorm: 358837 1 Capsule(s) PO QD 09/19/2009 010 Inactive Tylenol Arthritis 650 mg Tab RxNorm: 5446662 2 Tablet(s) PO BID 09/21 Active Vitamin D3 5,000 unit tablet RxNorm: 338326 1 Tablet(s) PO QD 019 Active Synthroid 150 mcg tablet RxNorm: 877125 1 Tablet(s) PO QD 01/12/2015 01/11/2015 Inactive Synthroid 150 mcg tablet RxNorm: 925108 1 Tablet(s) PO Saturday and Saturday01/16/2018 01/15/2018 Inactive Vitamin D 2,000 unit Cap RxNorm: 1 Capsule(s) PO QD 01/30/201002/2010 Inactive Flexeril 5 mg tablet RxNorm: 663905 /2 to 1 Tablet(s) PO TID as needed for muscle spasm 06/10/2017 06/09/2017 Inactive Medrol (Isaiah) 4 mg Tabs in a Dose Pack RxNorm: 442335 Tablet(s) PO 0 09/04/2011 07/11/2011 Inactive as directed fenofibrate micronized 134 mg capsule RxNorm: 033870 1 Capsule( s) PO QD 06/03/2017 06/02/2017 Inactive Vitamin D2 50,000 unit capsule RxNorm: 162109 Capsule(s ) PO Take 1 capsule by mouth twice weekly 12/02/2013 12/01/2013 Inactive prednisone 20 mg tablet RxNorm: 246418 1 Tablet(s) PO BID 03/30/2014 03/29/2014 Inactive AttnRPh: Saving apply/adjudicate RxGRP:S G20 RxBIN:[id number] RxPCN:HT ID#:[id number]: Saving apply/adjudicate RxGRP:SG20 RxBIN:[id number] RxPCN:HT ID#:[id number] Soma 350 mg tablet RxNorm: 003807 1 Tablet(s) PO TID prn spasm 01/2310/08/2010 Inactive Lancets,Ultra Thin RxNorm: Miscellaneous Use to test blood sugar daily and as needed (Dx: E11.65) 02/28/2018 02/27/2018 Inactive pantoprazole 40 mg tablet,delayed release RxNorm: 799089 1 Tabl et(s) PO QD 08/21/2017 08/20/2017 Inactive Janumet XR 100 mg-1,000 mg tablet,extended release RxNorm: 1 213284 2 Tablet(s) PO QD 01/06/2014 01/05/2014 Inactive Contour Meter RxNorm: miscellaneous 02/27/2018 02/26/2018 Inactive Synthroid 200 mcg Tab RxNorm: 375061 1 Tablet(s) PO QD 11/24/200907/2009 Inactive Kombiglyze XR 5 mg-500 mg tablet,extended release RxNorm: 10 45477 1 Tablet(s) PO QD 05/07/2013 05/06/2013 Inactive Zithromax Z-Isaiah 250 mg tablet RxNorm: 352015 Tablet(s) PO as di rected 05/14/2013 05/13/2013 Inactive AttnRPh: Saving appl y/adjudicate RxGRP:SG20 RxBIN:[id number] RxPCN:HT ID#:[id number] Fish Oil 1,000 mg capsule RxNorm: 3 Capsule(s) PO QD 04/04/2017 Inactive Lasix Oral RxNorm: Oral 03/30/2014 03/29/2014 Inactive loratadine 10 mg tablet RxNorm: 087831 1 Tablet(s) PO QD 08/20/2017 0 08/19/2017 Inactive Vitamin D 5,000 unit Tab RxNorm: 1 Tablet(s) PO twice a week 1 08/07/2009 06/05/2010 Inactive permethrin 5 % Topical Cream RxNorm: 342797 TOP Use as directed 02/03/2013 Inactive Gabapentin 100 mg Tab RxNorm: 641934 1 Tablet(s) PO BID 04/12/2010 Inactive Voltaren 1 % topical gel RxNorm: 944745 TOP as needed 06/23/201805/26 Inactive Gabapentin 300 mg Cap RxNorm: 169618 1 Capsule(s) PO BID 07/12/2011 0 07/11/2011 Inactive Contour Test Strips RxNorm: Miscellaneous Test blood sug ar daily (Dx: E11.65) 02/28/2018 02/27/2018 Inactive Promethazine 25 mg Tab RxNorm: 565896 1 Tablet(s) PO Q6 -8H As needed for nausea and vomiting. 10/09/2010 10/08/2010 Inactive propranolol 20 mg tablet RxNorm: 931974 1 Tablet(s) PO BID 03/17/20 18 03/16/2018 Inactive Vitamin D 50,000 unit Cap RxNorm: 2374589 Capsule(s) PO 2 weekly 06/05/2010 Inactive Synthroid 175 mcg Tab RxNorm: 103187 1 Tablet(s) PO QD 07/12/2011 Inactive triamcinolone acetonide 0.1 % Ointment RxNorm: 6101234 T OP TID apply three times a day (sparingly) as needed for itching 04/04/2017 04/03/2017 Inactive Ultram 50 mg Tab RxNorm: 774631 1-2 Tablet(s) PO QID prn pain 03/2203/22/2011 Inactive Topamax 100 mg Tab RxNorm: 094211 1 Tablet(s) PO BID 10/04/200910/03 Inactive Vitamin D3 1000 units Capsule RxNorm: 3 Capsule(s) PO QD 0 06/05/2010 Inactive Singulair 10 mg tablet RxNorm: 734127 1 Tablet(s) PO QD 06/23/2018 Inactive Medication [...] Code Result Date S ervice Location SARS-CoV2 0976653 SARS-CoV2 PCR Detected 07/08/2021 [facility] GFR CALC 9250088 GFR Non Afr Amr >60 mL/min 01/26/2019 Un known GFR CALC 3383986 GFR Afr Amr >60 mL/min 01/26/2019 Unknow n COMPLETE BLOOD COUNT 2843289 WBC 7.0 10e9/L 01/27/20 19 Unknown COMPLETE BLOOD COUNT 6446279 RBC 4.52 10e12/L 2018 Unknown COMPLETE BLOOD COUNT 2287242 HEMOGLOBIN 14.0 g/dL 01/27/20 19 Unknown COMPLETE BLOOD COUNT 1806744 HEMATOCRIT 42.6 % 01/27/20 19 Unknown COMPLETE BLOOD COUNT 6654311 MCV 94.2 fL 9 Unknown COMPLETE BLOOD COUNT 1339665 MCH 31.0 pg 9 Unknown COMPLETE BLOOD COUNT 1822640 MCHC 32.9 g/dL 9 Unknown COMPLETE BLOOD COUNT 4395559 PLATELET COUNT 272 10e9/L 10/2018 Unknown COMPLETE BLOOD COUNT 3808922 Mean Plt Volume 10.4 fL 10/2018 Unknown COMPLETE BLOOD COUNT 7993076 Neut Auto 53.9 % 9 Unknown COMPLETE BLOOD COUNT 2799299 Lymph Auto 33.8 % 01/27/20 19 Unknown COMPLETE BLOOD COUNT 1347543 [place] Auto 9.1 % 9 Unknown COMPLETE BLOOD COUNT 1442635 RDW 13.2 % 9 Unknown COMPLETE BLOOD COUNT 5990416 Eos Auto 2.3 % 9 Unknown COMPLETE BLOOD COUNT 9182502 Baso Auto 0.9 % 9 Unknown COMPLETE BLOOD COUNT 1655750 Neutrophil Abs 3.77 10e9/L Unknown COMPLETE BLOOD COUNT 4034715 Lymphocyte Abs 2.37 10e9/L Unknown COMPLETE BLOOD COUNT 3693534 Monocyte Abs 0.64 10e9/L 10/2018 Unknown COMPLETE BLOOD COUNT 0261846 Eosinophil Abs 0.16 10e9/L Unknown COMPLETE BLOOD COUNT 9943795 RDW-SD 44.2 fL 9 Unknown COMPLETE BLOOD COUNT 9038892 Basophil Abs 0.06 10e9/L 10/2018 Unknown COMPREHENSIVE METABOLIC 80178 AST 15 U/L 2018 Unknown COMPREHENSIVE METABOLIC 35439 ALT 18 U/L 2018 Unknown COMPREHENSIVE METABOLIC 25935 BUN 10 mg/dL 2018 Unknown COMPREHENSIVE METABOLIC 85651 ALBUMIN 4.1 g/dL 2018 Unknown COMPREHENSIVE METABOLIC 04803 CHLORIDE 100 mmol/L 01/26 Unknown COMPREHENSIVE METABOLIC 75743 Bili Total 0.4 mg/dL 01/26 Unknown COMPREHENSIVE METABOLIC 78622 ALK PHOS 57 U/L 2018 Unknown COMPREHENSIVE METABOLIC 38298 SODIUM 136 mmol/L 01/26 Unknown COMPREHENSIVE METABOLIC 19342 CREATININE 0.71 mg/dL 10/2018 Unknown COMPREHENSIVE METABOLIC 59943 CALCIUM 9.3 mg/dL 2018 Unknown COMPREHENSIVE METABOLIC 98341 POTASSIUM 4.4 mmol/L 01/26 Unknown COMPREHENSIVE METABOLIC 94466 Total Protein 6.7 g/dL Unknown COMPREHENSIVE METABOLIC 06702 Glucose 88 mg/dL 2018 Unknown COMPREHENSIVE METABOLIC 13230 Bicarbonate 27 mmol/L 10/2018 Unknown COMPREHENSIVE METABOLIC 04867 AGAP 9 mmol/L 2018 Unknown Procedures Procedure Codes Date URINALYSIS NONAUTO W/O SCOPE CPT-4: 60861 09/10/2022 URINALYSIS NONAUTO W/O SCOPE CPT-4: 10067 09/05/2022 RML URINE CULTURE/ COLONY COUNT CPT-4: 64716 09/06/19 23 RML URINE CULTURE/ COLONY COUNT CPT-4: 36111 06/29/19 23 THER/PROPH/DIAG INJ SC/IM CPT-4: 75904 04/18/2022 KETOROLAC TROMETHAMINE INJ CPT-4: J1885 04/18/2022 FLU 64 + VACC AIIV4 NO PRSRV 0.5ML IM CPT-4: 95955 ADMIN INFLUENZA VIRUS VAC CPT-4: G0008 04/05/2022 PPPS, subseq visit CPT-4: G0439 02/06/2022 DEXAMETHASONE SODIUM PHOS CPT-4: J1100 11/09/2021 THER/PROPH/DIAG INJ SC/IM CPT-4: 42084 11/09/2021 TRIAMCINOLONE ACET INJ NOS CPT-4: J3301 11/09/2021 CEFTRIAXONE SODIUM INJECTION CPT-4: J0696 10/30/2021 THER/PROPH/DIAG INJ SC/IM CPT-4: 17463 10/30/2021 INFLUENZA ASSAY W/OPTIC CPT-4: 44006 10/30/2021 THER/PROPH/DIAG INJ SC/IM CPT-4: 66706 09/05/2021 TRIAMCINOLONE ACET INJ NOS CPT-4: J3301 09/05/2021 INFLUENZA ASSAY W/OPTIC CPT-4: 53192 07/04/2021 SARS-CoV2 CPT-4: 2389313 07/04/2021 FLU VACC PRSV FREE INC ANTIG 65 AND OLDER CPT-4: 54458 03/29/2021 FLU VACC PRSV FREE INC ANTIG 65 AND OLDER CPT-4: 20537 03/29/2021 ADMIN INFLUENZA VIRUS VAC CPT-4: G0008 03/29/2021 DRAINAGE OF SKIN ABSCESS CPT-4: 94573 02/08/2021 PPPS, subseq visit CPT-4: G0439 01/03/2021 OCCULT BLOOD FECES CPT-4: 65365 07/13/2020 RML URINE CULTURE/ COLONY COUNT CPT-4: 40017 05/17/20 URINALYSIS NONAUTO W/O SCOPE CPT-4: 71351 05/17/2020 CEFTRIAXONE SODIUM INJECTION CPT-4: J0696 03/07/2020 THER/PROPH/DIAG INJ SC/IM CPT-4: 92172 03/07/2020 THER/PROPH/DIAG INJ SC/IM CPT-4: 68154 03/07/2020 METHYLPREDNISOLONE INJECTION CPT-4: J2930 03/07/2020 PPPS, subseq visit CPT-4: G0439 12/21/2019 RML URINE CULTURE/ COLONY COUNT CPT-4: 13644 09/11/19 20 CEFTRIAXONE SODIUM INJECTION CPT-4: J0696 09/08/2019 THER/PROPH/DIAG INJ SC/IM CPT-4: 31561 09/08/2019 THER/PROPH/DIAG INJ SC/IM CPT-4: 98137 09/07/2019 CEFTRIAXONE SODIUM INJECTION CPT-4: J0696 09/07/2019 THER/PROPH/DIAG INJ SC/IM CPT-4: 25315 09/07/2019 URINALYSIS NONAUTO W/O SCOPE CPT-4: 02291 09/02/2019 RML URINE CULTURE/ COLONY COUNT CPT-4: 19250 09/02/19 20 FLU VACC PRSV FREE INC ANTIG 65 AND OLDER CPT-4: 89280 04/15/2019 URINALYSIS NONAUTO W/O SCOPE CPT-4: 61178 04/15/2019 RML URINE CULTURE/ COLONY COUNT CPT-4: 12881 04/15/20 19 ADMIN INFLUENZA VIRUS VAC CPT-4: G0008 04/15/2019 FLU VACC PRSV FREE INC ANTIG 65 AND OLDER CPT-4: 14979 04/15/2019 THER/PROPH/DIAG INJ SC/IM CPT-4: 24284 04/07/2019 TRIAMCINOLONE ACET INJ NOS CPT-4: J3301 04/07/2019 DEXAMETHASONE SODIUM PHOS CPT-4: J1100 04/07/2019 URINALYSIS NONAUTO W/O SCOPE CPT-4: 42845 03/18/2019 RML URINE CULTURE/ COLONY COUNT CPT-4: 59649 03/18/20 19 ROUTINE VENIPUNCTURE CPT-4: 83074 01/26/2019 RML COMPREHEN METABOLIC PANEL CPT-4: 43343 01/26/2019 RML COMPLETE CBC W/AUTO DIFF WBC CPT-4: 32963 019 RML URINE CULTURE/ COLONY COUNT CPT-4: 51505 01/27/20 19 URINALYSIS NONAUTO W/O SCOPE CPT-4: 19605 01/26/2019 THER/PROPH/DIAG INJ SC/IM CPT-4: 07445 01/08/2019 TRIAMCINOLONE ACET INJ NOS CPT-4: J3301 01/08/2019 THER/PROPH/DIAG INJ SC/IM CPT-4: 73181 01/06/2019 METHYLPREDNISOLONE INJECTION CPT-4: J2930 01/06/2019 AIRWAY INHALATION TREATMENT CPT-4: 43795 01/06/2019 RML URINE CULTURE/ COLONY COUNT CPT-4: 07161 01/07/20 19 PPPS, subseq visit CPT-4: G0439 12/11/2018 URINALYSIS NONAUTO W/O SCOPE CPT-4: 56421 12/11/2018 RML URINE CULTURE/ COLONY COUNT CPT-4: 95370 12/12/19 19 CULTURE OTHR SPECIMN AEROBIC CPT-4: 75462 12/11/2018 OCCULT BLOOD FECES CPT-4: 57579 12/11/2018 THER/PROPH/DIAG INJ SC/IM CPT-4: 95920 10/07/2018 TRIAMCINOLONE ACET INJ NOS CPT-4: J3301 10/07/2018 DEXAMETHASONE SODIUM PHOS CPT-4: J1100 10/07/2018 THER/PROPH/DIAG INJ SC/IM CPT-4: 99776 10/16/2017 TRIAMCINOLONE ACET INJ NOS CPT-4: J3301 10/16/2017 THER/PROPH/DIAG INJ SC/IM CPT-4: 82831 10/16/2017 KETOROLAC TROMETHAMINE INJ CPT-4: J1885 10/16/2017 INFLUENZA ASSAY W/OPTIC CPT-4: 29111 07/25/2017 FLU VACC PRSV FREE INC ANTIG 65 AND OLDER CPT-4: 16837 04/04/2017 PNEUMOCOCCAL VACC 23 DANAY IM CPT-4: 88156 04/04/2017 PPPS, subseq visit CPT-4: G0439 04/04/2017 ADMIN INFLUENZA VIRUS VAC CPT-4: G0008 04/04/2017 ADMIN PNEUMOCOCCAL VACCINE CPT-4: G0009 04/04/2017 URINALYSIS NONAUTO W/O SCOPE CPT-4: 73144 06/05/2016 FLU VACC PRSV FREE INC ANTIG 65 AND OLDER CPT-4: 41324 05/01/2016 ADMIN INFLUENZA VIRUS VAC CPT-4: G0008 05/01/2016 URINALYSIS NONAUTO W/O SCOPE CPT-4: 38111 11/08/2015 URINALYSIS NONAUTO W/O SCOPE CPT-4: 08420 03/28/2015 ADMIN INFLUENZA VIRUS VAC CPT-4: G0008 03/28/2015 FLU VACC PRSV FREE INC ANTIG 65 AND OLDER CPT-4: 30622 03/28/2015 PRESCRIP TRANSMIT VIA ERX SY CPT-4: G8553 03/28/2015 PNEUMOCOCCAL VACC 13 DANAY IM CPT-4: 86783 02/08/2015 ADMIN PNEUMOCOCCAL VACCINE CPT-4: G0009 02/08/2015 PRESCRIP TRANSMIT VIA ERX SY CPT-4: G8553 02/08/2015 RML URINE CULTURE/ COLONY COUNT CPT-4: 42198 01/12/20 15 URINALYSIS NONAUTO W/O SCOPE CPT-4: 37956 01/11/2015 PRESCRIP TRANSMIT VIA ERX SY CPT-4: G8553 01/11/2015 PRESCRIP TRANSMIT VIA ERX SY CPT-4: G8553 11/24/2014 URINALYSIS NONAUTO W/O SCOPE CPT-4: 77199 10/27/2014 RML URINE CULTURE/ COLONY COUNT CPT-4: 38580 10/28/19 15 PRESCRIP TRANSMIT VIA ERX SY CPT-4: G8553 10/27/2014 CEFTRIAXONE SODIUM INJECTION CPT-4: J0696 09/23/2014 THER/PROPH/DIAG INJ SC/IM CPT-4: 65036 09/23/2014 URINALYSIS NONAUTO W/O SCOPE CPT-4: 52577 09/23/2014 RML URINE CULTURE/ COLONY COUNT CPT-4: 58937 09/24/19 15 PRESCRIP TRANSMIT VIA ERX SY CPT-4: G8553 09/23/2014 URINALYSIS NONAUTO W/O SCOPE CPT-4: 29195 03/30/2014 RML URINE CULTURE/ COLONY COUNT CPT-4: 95908 03/30/20 14 PRESCRIP TRANSMIT VIA ERX SY CPT-4: G8553 03/30/2014 PRESCRIP TRANSMIT VIA ERX SY CPT-4: G8553 11/24/2013 PRESCRIP TRANSMIT VIA ERX SY CPT-4: G8553 06/29/2013 PRESCRIP TRANSMIT VIA ERX SY CPT-4: G8553 05/26/2013 PRESCRIP TRANSMIT VIA ERX SY CPT-4: G8553 04/23/2013 THER/PROPH/DIAG INJ SC/IM CPT-4: 70989 03/05/2013 KETOROLAC TROMETHAMINE INJ CPT-4: J1885 03/05/2013 PRESCRIP TRANSMIT VIA ERX SY CPT-4: G8553 11/27/2012 PRESCRIP TRANSMIT VIA ERX SY CPT-4: G8553 11/11/2012 PRESCRIP TRANSMIT VIA ERX SY CPT-4: G8553 09/03/2012 PRESCRIP TRANSMIT VIA ERX SY CPT-4: G8553 07/23/2012 PRESCRIP TRANSMIT VIA ERX SY CPT-4: G8553 05/20/2012 PRESCRIP TRANSMIT VIA ERX SY CPT-4: G8553 04/04/2012 DESTRUCT PREMALG LESION (Cryosurgery) CPT-4: 94601 PRESCRIP TRANSMIT VIA ERX SY CPT-4: G8553 01/02/2012 PRESCRIP TRANSMIT VIA ERX SY CPT-4: G8553 09/04/2011 URINALYSIS NONAUTO W/O SCOPE CPT-4: 21261 07/31/2011 PRESCRIP TRANSMIT VIA ERX SY CPT-4: G8553 07/12/2011 PRESCRIP TRANSMIT VIA ERX SY CPT-4: G8553 05/09/2011 THER/PROPH/DIAG INJ SC/IM CPT-4: 85046 05/02/2011 KETOROLAC TROMETHAMINE INJ CPT-4: J1885 05/02/2011 PRESCRIP TRANSMIT VIA ERX SY CPT-4: G8553 04/25/2011 CUR TOBACCO NON-USER CPT-4: G8457 04/04/2011 PRESCRIP TRANSMIT VIA ERX SY CPT-4: G8553 04/04/2011 DRAIN/INJECT JOINT/BURSA CPT-4: 39670 03/01/2011 METHYLPREDNISOLONE 40 MG INJ CPT-4: J1030 03/01/2011 TRIAMCINOLONE ACET INJ NOS CPT-4: J3301 03/01/2011 DRAIN/INJECT JOINT/BURSA CPT-4: 03531 01/04/2011 METHYLPREDNISOLONE 40 MG INJ CPT-4: J1030 01/04/2011 TRIAMCINOLONE ACET INJ NOS CPT-4: J3301 01/04/2011 PRESCRIP TRANSMIT VIA ERX SY CPT-4: G8553 12/07/2010 PRESCRIP TRANSMIT VIA ERX SY CPT-4: G8553 10/09/2010 PRESCRIP TRANSMIT VIA ERX SY CPT-4: G8553 06/06/2010 DRAIN/INJECT JOINT/BURSA CPT-4: 49333 04/12/2010 TRIAMCINOLONE ACET INJ NOS CPT-4: J3301 04/12/2010 METHYLPREDNISOLONE 80 MG INJ CPT-4: J1040 04/12/2010 PRESCRIP TRANSMIT VIA ERX SY CPT-4: G8553 03/20/2010 THER/PROPH/DIAG INJ SC/IM CPT-4: 72080 01/30/2010 KETOROLAC TROMETHAMINE INJ CPT-4: J1885 01/30/2010 PRESCRIP TRANSMIT VIA ERX SY CPT-4: G8553 01/30/2010 DRAIN/INJECT JOINT/BURSA CPT-4: 07145 10/26/2009 TRIAMCINOLONE ACET INJ NOS CPT-4: J3301 10/26/2009 METHYLPREDNISOLONE 80 MG INJ CPT-4: J1040 10/26/2009 DRAINAGE OF SKIN ABSCESS CPT-4: 51520 10/04/2009 Vital Signs Date Vital 09/10/2022 Blood Pressure 1: 132/78 Code: 8480-6 Heart Rate 1: 74 bpm Respiratory Rate: 18 bpm SpO2: 95% Temperature: 36.2 (C) / 97.1 (F) We ight: 220 lbs Code: 81504-9 09/05/2022 Blood Pressure 1: 124/78 Code: 8480-6 Heart Rate 1: 65 bpm Respiratory Rate: 20 bpm SpO2: 97% Temperature: 36.7 (C) / 98.0 (F) We ight: 224 lbs Code: 02387-9 08/30/2022 Blood Pressure 1: 124/74 Code: 8480-6 Heart Rate 1: 74 bpm Respiratory Rate: 20 bpm SpO2: 96% Temperature: 36.3 (C) / 97.3 (F) We ight: 224 lbs Code: 26003-1 08/07/2022 Blood Pressure 1: 126/74 Code: 8480-6 Heart Rate 1: 73 bpm Respiratory Rate: 20 bpm SpO2: 97% Temperature: 36.2 (C) / 97.1 (F) We ight: 222 lbs Code: 58596-3 06/29/2022 Blood Pressure 1: 132/73 Code: 8480-6 BMI: 36.7 Code: 64250-8 Heart Rate 1: 74 bpm Height: 5'6" Code: 8302-2 SpO2: 96% Temperature: 3 6.4 (C) / 97.6 (F) Weight: 226 lbs Code: 23753-2 05/28/2022 Blood Pressure 1: 129/78 Code: 8480-6 BMI: 37.7 Code: 44586-2 Heart Rate 1: 72 bpm Height: 5'6" Code: 8302-2 SpO2: 95% Temperature: 3 6.2 (C) / 97.1 (F) Weight: 232 lbs Code: 53611-4 05/10/2022 Blood Pressure 1: 133/75 Code: 8480-6 BMI: 38.3 Code: 50465-8 Heart Rate 1: 68 bpm Height: 5'6" Code: 8302-2 SpO2: 98% Temperature: 3 6.2 (C) / 97.1 (F) Weight: 236 lbs Code: 53865-9 04/18/2022 Blood Pressure 1: 118/70 Code: 8480-6 Heart Rate 1: 86 bpm Respiratory Rate: 20 bpm SpO2: 96% Temperature: 36.6 (C) / 97.8 (F) We ight: 238 lbs Code: 26880-9 02/15/2022 Blood Pressure 1: 120/82 Code: 8480-6 Heart Rate 1: 88 bpm Respiratory Rate: 20 bpm SpO2: 98% Temperature: 36.1 (C) / 97.0 (F) We ight: 237 lbs Code: 56918-4 02/06/2022 Blood Pressure 1: 124/80 Code: 8480-6 BMI: 39.4 Code: 13048-8 Heart Rate 1: 76 bpm Height: 5'6" Code: 8302-2 Respiratory Rate: 20 bpm SpO2: 98% Temperature: 36.6 (C) / 97.9 (F) Weight: 242 lbs Code: 91891-5 02/01/2022 Blood Pressure 1: 144/100 Code: 8480-6 Heart Rat e 1: 108 bpm Respiratory Rate: 22 bpm SpO2: 96% Temperature: 36.4 (C) / 97.5 (F) 11/29/2021 Blood Pressure 1: 128/80 Code: 8480-6 Heart Rate 1: 56 bpm Respiratory Rate: 20 bpm SpO2: 97% Temperature: 36.7 (C) / 98.1 (F) We ight: 242 lbs Code: 90960-1 11/22/2021 Blood Pressure 1: 118/80 Code: 8480-6 Heart Rate 1: 84 bpm Respiratory Rate: 20 bpm SpO2: 99% Temperature: 36.3 (C) / 97.4 (F) 11/21/2021 Blood Pressure 1: 132/80 Code: 8480-6 Heart Rate 1: 98 bpm Respiratory Rate: 20 bpm SpO2: 99% Weight: 238 lbs Code: 46780 -7 11/09/2021 Blood Pressure 1: 136/86 Code: 8480-6 Heart Rate 1: 68 bpm Respiratory Rate: 20 bpm SpO2: 95% Temperature: 36.4 (C) / 97.5 (F) We ight: 244 lbs Code: 43475-3 10/31/2021 Blood Pressure 1: 128/80 Code: 8480-6 Heart Rate 1: 80 bpm Respiratory Rate: 28 bpm SpO2: 93% Temperature: 38.0 (C) / 100. 4 (F) 10/30/2021 Blood Pressure 1: 136/82 Code: 8480-6 Heart Rate 1: 120 bpm Respiratory Rate: 24 bpm SpO2: 95% Temperature: 38.0 (C) / 100. 4 (F) 09/05/2021 Blood Pressure 1: 118/84 Code: 8480-6 BMI: 38.5 Code: 52603-0 Heart Rate 1: 72 bpm Height: 5'7" Code: 8302-2 Respiratory Rate: 20 bpm SpO2: 95% Temperature: 36.3 (C) / 97.4 (F) Weight: 246 lbs Code: 33685-0 08/24/2021 Blood Pressure 1: 132/84 Code: 8480-6 Heart Rate 1: 76 bpm Respiratory Rate: 19 bpm SpO2: 98% Temperature: 36.7 (C) / 98.1 (F) We ight: Code: 92801-5 03/01/2021 Blood Pressure 1: 90/52 Code: 8480-6 Heart Rate 1: 66 bpm Respiratory Rate: 22 bpm SpO2: 97% 02/08/2021 Blood Pressure 1: 132/75 Code: 8480-6 Heart Rate 1: 74 bpm Respiratory Rate: 18 bpm SpO2: 98% Temperature: 36.3 (C) / 97.3 (F) We ight: 247 lbs Code: 83405-2 01/19/2021 Blood Pressure 1: 126/76 Code: 8480-6 Heart Rate 1: 76 bpm Respiratory Rate: 20 bpm SpO2: 98% Temperature: 37.1 (C) / 98.8 (F) We ight: 244 lbs Code: 44687-1 01/03/2021 Blood Pressure 1: 124/64 Code: 8480-6 BMI: 38.5 Code: 27043-0 Heart Rate 1: 76 bpm Height: 5'7" Code: 8302-2 Respiratory Rate: 20 bpm SpO2: 96% Temperature: 36.4 (C) / 97.6 (F) Weight: 246 lbs Code: 02329-3 11/29/2020 Blood Pressure 1: 119/68 Code: 8480-6 Heart Rate 1: 73 bpm Respiratory Rate: 20 bpm SpO2: 95% Temperature: 36.1 (C) / 96.9 (F) We ight: 245 lbs Code: 36975-3 09/29/2020 Blood Pressure 1: 136/79 Code: 8480-6 Heart Rate 1: 67 bpm Respiratory Rate: 15 bpm SpO2: 98% Temperature: 36.2 (C) / 97.1 (F) We ight: 237 lbs Code: 92379-0 09/19/2020 Blood Pressure 1: 135/82 Code: 8480-6 Heart Rate 1: 76 bpm Respiratory Rate: 17 bpm SpO2: 96% Temperature: 36.6 (C) / 97.8 (F) We ight: 238 lbs Code: 76816-5 08/10/2020 Blood Pressure 1: 126/82 Code: 8480-6 Heart Rate 1: 60 bpm Respiratory Rate: 20 bpm SpO2: 96% Temperature: 36.3 (C) / 97.3 (F) We ight: 238 lbs Code: 61996-0 08/01/2020 Temperature: 36.6 (C) / 97.8 (F) 07/13/2020 Blood Pressure 1: 132/80 Code: 8480-6 Heart Rate 1: 76 bpm Respiratory Rate: 20 bpm SpO2: 97% Temperature: 36.2 (C) / 97.2 (F) We ight: 228 lbs Code: 27494-3 07/05/2020 Temperature: 35.9 (C) / 96.7 (F) 06/22/2020 Blood Pressure 1: 134/82 Code: 8480-6 Heart Rate 1: 60 bpm Respiratory Rate: 20 bpm SpO2: 96% Temperature: 36.4 (C) / 97.6 (F) We ight: 235 lbs Code: 59884-6 05/17/2020 Blood Pressure 1: 141/72 Code: 8480-6 Heart Rate 1: 78 bpm Respiratory Rate: 16 bpm SpO2: 98% Temperature: 36.3 (C) / 97.3 (F) We ight: 232 lbs Code: 56289-8 03/14/2020 Blood Pressure 1: 126/92 Code: 8480-6 Heart Rate 1: 72 bpm Respiratory Rate: 22 bpm SpO2: 96% Temperature: 36.3 (C) / 97.4 (F) We ight: 225 lbs Code: 59715-2 03/07/2020 Blood Pressure 1: 124/86 Code: 8480-6 Heart Rate 1: 72 bpm Respiratory Rate: 24 bpm SpO2: 93% Temperature: 36.2 (C) / 97.1 (F) We ight: 227 lbs Code: 92833-2 12/21/2019 Blood Pressure 1: 114/72 Code: 8480-6 BMI: 36.2 Code: 21580-4 Heart Rate 1: 60 bpm Height: 5'7" Code: 8302-2 Respiratory Rate: 20 bpm SpO2: 97% Temperature: 36.7 (C) / 98.1 (F) Weight: 231 lbs Code: 38949-2 09/02/2019 Blood Pressure 1: 138/85 Code: 8480-6 Heart Rate 1: 76 bpm Respiratory Rate: 20 bpm SpO2: 96% Temperature: 36.3 (C) / 97.3 (F) We ight: 226 lbs Code: 12465-8 07/09/2019 Blood Pressure 1: 123/63 Code: 8480-6 BMI: 34.9 Code: 17938-0 Heart Rate 1: 64 bpm Height: 5'7" Code: 8302-2 Respiratory Rate: 17 bpm SpO2: 97% Temperature: 37.0 (C) / 98.6 (F) Weight: 223 lbs Code: 35494-8 04/15/2019 Blood Pressure 1: 110/82 Code: 8480-6 Heart Rate 1: 66 bpm SpO2: 98% Temperature: 36.1 (C) / 96.9 (F) Weight: 223 lbs Code: 65461-4 04/07/2019 Blood Pressure 1: 132/80 Code: 8480-6 Heart Rate 1: 68 bpm Temperature: 36.9 (C) / 98.4 (F) Weight: 222 lbs Code: 02568-7 03/25/2019 Blood Pressure 1: 108/70 Code: 8480-6 Heart Rate 1: 64 bpm Respiratory Rate: 20 bpm SpO2: 96% Temperature: 36.2 (C) / 97.2 (F) We ight: 221 lbs Code: 16238-4 03/18/2019 Blood Pressure 1: 138/82 Code: 8480-6 Heart Rate 1: 74 bpm SpO2: 99% Temperature: 36.1 (C) / 96.9 (F) Weight: 223 lbs Code: 62679-8 01/26/2019 Blood Pressure 1: 138/90 Code: 8480-6 Heart Rate 1: 68 bpm SpO2: 96% Temperature: 35.9 (C) / 96.7 (F) Weight: 227 lbs Code: 89092-0 01/08/2019 Blood Pressure 1: 134/78 Code: 8480-6 BMI: 36.8 Code: 92749-8 Heart Rate 1: 76 bpm Height: 5'7" Code: 8302-2 SpO2: 93% Temperature: 3 6.4 (C) / 97.6 (F) Weight: 235 lbs Code: 56989-0 01/06/2019 Blood Pressure 1: 116/80 Code: 8480-6 Heart Rate 1: 72 bpm Respiratory Rate: 20 bpm SpO2: 98% Temperature: 36.5 (C) / 97.7 (F) We ight: 232 lbs Code: 98179-3 12/11/2018 Blood Pressure 1: 120/82 Code: 8480-6 BMI: 36.2 Code: 46030-8 Heart Rate 1: 67 bpm Height: 5'7" Code: 8302-2 Respiratory Rate: 18 bpm SpO2: 96% Temperature: 35.9 (C) / 96.7 (F) Weight: 231 lbs Code: 44017-7 10/30/2018 Blood Pressure 1: 126/82 Code: 8480-6 Heart Rate 1: 80 bpm Respiratory Rate: 20 bpm SpO2: 96% Temperature: 36.8 (C) / 98.3 (F) We ight: 228 lbs Code: 45304-4 10/07/2018 Blood Pressure 1: 130/90 Code: 8480-6 Heart Rate 1: 76 bpm Respiratory Rate: 24 bpm SpO2: 97% Temperature: 36.0 (C) / 96.8 (F) We ight: 229 lbs Code: 16172-0 06/23/2018 Blood Pressure 1: 132/80 Code: 8480-6 Heart Rate 1: 72 bpm Respiratory Rate: 20 bpm SpO2: 98% Temperature: 36.7 (C) / 98.0 (F) We ight: 233 lbs Code: 78019-0 01/16/2018 Blood Pressure 1: 116/82 Code: 8480-6 Heart Rate 1: 72 bpm Respiratory Rate: 20 bpm SpO2: 96% Temperature: 36.9 (C) / 98.5 (F) We ight: 230 lbs Code: 54212-7 10/16/2017 Blood Pressure 1: 116/74 Code: 8480-6 BMI: 35.1 Code: 23924-0 Heart Rate 1: 76 bpm Height: 5'7" Code: 8302-2 Respiratory Rate: 20 bpm SpO2: 98% Temperature: 36.7 (C) / 98.1 (F) Weight: 224 lbs Code: 00994-2 09/12/2017 Blood Pressure 1: 124/78 Code: 8480-6 BMI: 34.6 Code: 18183-5 Heart Rate 1: 84 bpm Height: 5'7" Code: 8302-2 Respiratory Rate: 20 bpm SpO2: 95% Temperature: 36.6 (C) / 97.8 (F) Weight: 221 lbs Code: 66121-3 08/20/2017 Blood Pressure 1: 126/78 Code: 8480-6 Heart Rate 1: 92 bpm Height: 5'7" Code: 8302-2 Respiratory Rate: 20 bpm SpO2: 96% Temperature: 36 .9 (C) / 98.5 (F) 08/13/2017 Blood Pressure 1: 124/80 Code: 8480-6 BMI: 34.8 Code: 06206-4 Heart Rate 1: 80 bpm Height: 5'7" Code: 8302-2 Respiratory Rate: 20 bpm SpO2: 96% Temperature: 36.7 (C) / 98.0 (F) Weight: 222 lbs Code: 53230-6 07/29/2017 Blood Pressure 1: 114/70 Code: 8480-6 BMI: 34.5 Code: 69446-6 Heart Rate 1: 76 bpm Height: 5'7" Code: 8302-2 Respiratory Rate: 20 bpm SpO2: 97% Temperature: 36.9 (C) / 98.4 (F) Weight: 220 lbs Code: 02310-1 07/25/2017 Blood Pressure 1: 142/76 Code: 8480-6 BMI: 34.9 Code: 06293-0 Heart Rate 1: 92 bpm Height: 5'7" Code: 8302-2 Respiratory Rate: 18 bpm SpO2: 96% Temperature: 36.7 (C) / 98.1 (F) Weight: 223 lbs Code: 39809-0 06/10/2017 Blood Pressure 1: 136/82 Code: 8480-6 BMI: 34.3 Code: 77353-5 Heart Rate 1: 68 bpm Height: 5'7" Code: 8302-2 Respiratory Rate: 20 bpm SpO2: 96% Temperature: 36.7 (C) / 98.0 (F) Weight: 219 lbs Code: 55610-9 05/28/2017 Blood Pressure 1: 136/70 Code: 8480-6 BMI: 34.1 Code: 10990-9 Heart Rate 1: 84 bpm Height: 5'7" Code: 8302-2 Respiratory Rate: 20 bpm SpO2: 95% Temperature: 35.9 (C) / 96.6 (F) Weight: 218 lbs Code: 27478-9 04/04/2017 Blood Pressure 1: 122/78 Code: 8480-6 BMI: 33.4 Code: 47835-4 Heart Rate 1: 68 bpm Height: 5'7" Code: 8302-2 Respiratory Rate: 20 bpm SpO2: 96% Temperature: 36.7 (C) / 98.0 (F) Weight: 213 lbs Code: 63412-1 11/28/2016 Blood Pressure 1: 114/82 Code: 8480-6 BMI: 33.7 Code: 83750-3 Heart Rate 1: 72 bpm Height: 5'7" Code: 8302-2 Respiratory Rate: 20 bpm SpO2: 98% Temperature: 36.4 (C) / 97.6 (F) Weight: 215 lbs Code: 47822-2 06/05/2016 Blood Pressure 1: 104/68 Code: 8480-6 BMI: 33.7 Code: 60697-4 Heart Rate 1: 68 bpm Height: 5'7" Code: 8302-2 Respiratory Rate: 20 bpm SpO2: 96% Temperature: 36.8 (C) / 98.2 (F) Weight: 215 lbs Code: 48574-0 11/08/2015 Blood Pressure 1: 122/70 Code: 8480-6 BMI: 33.8 Code: 64659-9 Heart Rate 1: 80 bpm Height: 5'7" Code: 8302-2 Respiratory Rate: 20 bpm Temperatu re: 36.8 (C) / 98.2 (F) Weight: 216 lbs Code: 53910-7 07/19/2015 Blood Pressure 1: 122/70 Code: 8480-6 BMI: 33.0 Code: 27183-7 Heart Rate 1: 80 bpm Height: 5'7" Code: 8302-2 Respiratory Rate: 18 bpm Temperatu re: 35.9 (C) / 96.6 (F) Weight: 211 lbs Code: 23437-3 03/28/2015 Blood Pressure 1: 124/70 Code: 8480-6 BMI: 31.8 Code: 63417-6 Heart Rate 1: 72 bpm Height: 5'7" Code: 8302-2 Respiratory Rate: 20 bpm Temperatu re: 36.8 (C) / 98.2 (F) Weight: 203 lbs Code: 11580-5 02/08/2015 Blood Pressure 1: 98/58 Code: 8480-6 BMI: 32.1 C ode: 70390-7 Heart Rate 1: 84 bpm Height: 5'7" Code: 8302-2 Respiratory Rate: 20 bpm Temperatu re: 36.7 (C) / 98.0 (F) Weight: 205 lbs Code: 35603-7 01/11/2015 Blood Pressure 1: 118/78 Code: 8480-6 BMI: 32.1 Code: 46422-3 Heart Rate 1: 84 bpm Height: 5'7" Code: 8302-2 Respiratory Rate: 20 bpm Temperatu re: 36.6 (C) / 97.9 (F) Weight: 205 lbs Code: 35888-3 11/24/2014 Blood Pressure 1: 124/80 Code: 8480-6 BMI: 32.0 Code: 39291-0 Heart Rate 1: 76 bpm Height: 5'7" Code: 8302-2 Respiratory Rate: 20 bpm Temperatu re: 36.2 (C) / 97.1 (F) Weight: 204 lbs Code: 40860-0 11/19/2014 Blood Pressure 1: 132/78 Code: 8480-6 BMI: 32.7 Code: 09619-9 Heart Rate 1: 68 bpm Height: 5'7" Code: 8302-2 Respiratory Rate: 20 bpm SpO2: 98% Temperature: 36.7 (C) / 98.0 (F) Weight: 209 lbs Code: 13172-7 10/27/2014 Blood Pressure 1: 118/76 Code: 8480-6 BMI: 32.6 Code: 15298-4 Heart Rate 1: 64 bpm Height: 5'7" Code: 8302-2 Respiratory Rate: 20 bpm Temperatu re: 36.7 (C) / 98.0 (F) Weight: 208 lbs Code: 18862-8 09/23/2014 Blood Pressure 1: 118/68 Code: 8480-6 BMI: 34.3 Code: 44262-3 Heart Rate 1: 78 bpm Height: 5'7" Code: 8302-2 Respiratory Rate: 22 bpm Temperatu re: 36.4 (C) / 97.6 (F) Weight: 219 lbs Code: 96225-8 07/28/2014 Blood Pressure 1: 126/80 Code: 8480-6 BMI: 33.5 Code: 97165-7 Heart Rate 1: 76 bpm Height: 5'7" Code: 8302-2 Respiratory Rate: 20 bpm Temperatu re: 36.4 (C) / 97.6 (F) Weight: 214 lbs Code: 97157-5 03/30/2014 Blood Pressure 1: 128/80 Code: 8480-6 BMI: 35.2 Code: 54551-9 Heart Rate 1: 88 bpm Height: 5'7" Code: 8302-2 Respiratory Rate: 20 bpm Temperatu re: 36.4 (C) / 97.6 (F) Weight: 225 lbs Code: 89947-0 11/24/2013 Blood Pressure 1: 124/82 Code: 8480-6 BMI: 35.6 Code: 13796-9 Heart Rate 1: 80 bpm Height: 5'7" Code: 8302-2 Respiratory Rate: 22 bpm Temperatu re: 36.2 (C) / 97.1 (F) Weight: 227 lbs Code: 81323-4 08/25/2013 Blood Pressure 1: 128/80 Code: 8480-6 BMI: 37.4 Code: 42951-8 Heart Rate 1: 76 bpm Height: 5'7" Code: 8302-2 Respiratory Rate: 20 bpm Temperatu re: 36.6 (C) / 97.9 (F) Weight: 239 lbs Code: 63969-4 06/29/2013 Blood Pressure 1: 106/78 Code: 8480-6 BMI: 38.1 Code: 01283-9 Heart Rate 1: 80 bpm Height: 5'7" Code: 8302-2 Respiratory Rate: 20 bpm Temperatu re: 36.6 (C) / 97.9 (F) Weight: 243 lbs Code: 94504-4 05/26/2013 Blood Pressure 1: 122/80 Code: 8480-6 BMI: 39.3 Code: 26055-9 Heart Rate 1: 80 bpm Height: 5'7" Code: 8302-2 Respiratory Rate: 20 bpm Temperatu re: 36.9 (C) / 98.4 (F) Weight: 251 lbs Code: 42469-7 05/06/2013 Blood Pressure 1: 128/78 Code: 8480-6 BMI: 39.2 Code: 65052-0 Heart Rate 1: 76 bpm Height: 5'7" Code: 8302-2 Respiratory Rate: 22 bpm Temperatu re: 35.8 (C) / 96.4 (F) Weight: 250 lbs Code: 44624-0 04/23/2013 Blood Pressure 1: 132/92 Code: 8480-6 BMI: 39.6 Code: 05139-3 Heart Rate 1: 88 bpm Height: 5'7" Code: 8302-2 Respiratory Rate: 28 bpm SpO2: 97% Temperature: 36.5 (C) / 97.7 (F) Weight: 253 lbs Code: 73768-1 03/31/2013 Blood Pressure 1: 122/80 Code: 8480-6 BMI: 39.0 Code: 56277-0 Heart Rate 1: 84 bpm Height: 5'7" Code: 8302-2 Respiratory Rate: 20 bpm Temperatu re: 36.6 (C) / 97.8 (F) Weight: 249 lbs Code: 36267-6 03/05/2013 Blood Pressure 1: 120/80 Code: 8480-6 BMI: 39.2 Code: 53713-1 Heart Rate 1: 60 bpm Height: 5'7" Code: 8302-2 Respiratory Rate: 22 bpm Temperatu re: 35.9 (C) / 96.6 (F) Weight: 250 lbs Code: 02473-8 02/04/2013 Blood Pressure 1: 124/80 Code: 8480-6 BMI: 38.4 Code: 55803-8 Heart Rate 1: 80 bpm Height: 5'7" Code: 8302-2 Respiratory Rate: 20 bpm Temperatu re: 36.4 (C) / 97.6 (F) Weight: 245 lbs Code: 30815-7 11/27/2012 Blood Pressure 1: 127/83 Code: 8480-6 Te mperature: 36.1 (C) / 96.9 (F) Weight: 243 lbs 2 oz Code: 38787-9 11/11/2012 Blood Pressure 1: 126/82 Code: 8480-6 BMI: 37.4 Code: 04764-9 Heart Rate 1: 80 bpm Height: 5'7" Code: 8302-2 Respiratory Rate: 20 bpm Temperatu re: 36.8 (C) / 98.2 (F) Weight: 239 lbs Code: 06111-5 10/20/2012 Blood Pressure 1: 114/80 Code: 8480-6 BMI: 37.1 Code: 04488-2 Heart Rate 1: 104 bpm Height: 5'7" Code: 8302-2 Respiratory Rate: 20 bpm Temperatu re: 36.9 (C) / 98.4 (F) Weight: 237 lbs Code: 51474-0 09/03/2012 Blood Pressure 1: 118/72 Code: 8480-6 BMI: 37.3 Code: 18123-3 Heart Rate 1: 70 bpm Height: 5'7" Code: 8302-2 Temperature: 35.6 (C) / 96.0 (F) Weight: 238 lbs Code: 48402-3 07/23/2012 Blood Pressure 1: 124/78 Code: 8480-6 BMI: 36.8 Code: 19599-4 Heart Rate 1: 68 bpm Height: 5'7" Code: 8302-2 Temperature: 35.6 (C) / 96.0 (F) Weight: 235 lbs Code: 99626-7 05/20/2012 Blood Pressure 1: 112/70 Code: 8480-6 BMI: 37.1 Code: 28373-1 Heart Rate 1: 76 bpm Height: 5'7" Code: 8302-2 Respiratory Rate: 20 bpm Temperatu re: 36.7 (C) / 98.1 (F) Weight: 237 lbs Code: 76561-9 04/04/2012 Blood Pressure 1: 110/64 Code: 8480-6 BMI: 37.1 Code: 31251-3 Heart Rate 1: 68 bpm Height: 5'7" Code: 8302-2 Temperature: 36.1 (C) / 97.0 (F) Weight: 237 lbs Code: 60626-0 02/20/2012 Blood Pressure 1: 136/78 Code: 8480-6 BMI: 37.1 Code: 13003-9 Heart Rate 1: 72 bpm Height: 5'7" Code: 8302-2 Respiratory Rate: 20 bpm Temperatu re: 36.7 (C) / 98.0 (F) Weight: 237 lbs Code: 49187-5 01/02/2012 Blood Pressure 1: 122/70 Code: 8480-6 BMI: 37.1 Code: 43005-1 Heart Rate 1: 76 bpm Height: 5'7" Code: 8302-2 Respiratory Rate: 20 bpm Temperatu re: 37.0 (C) / 98.6 (F) Weight: 237 lbs Code: 02730-8 09/04/2011 Blood Pressure 1: 120/84 Code: 8480-6 BMI: 35.4 Code: 87637-8 Heart Rate 1: 68 bpm Height: 5'7" Code: 8302-2 Temperature: 30.0 (C) / 86.0 (F) Weight: 226 lbs Code: 05916-4 08/14/2011 Blood Pressure 1: 120/82 Code: 8480-6 BMI: 36.5 Code: 23813-3 Heart Rate 1: 80 bpm Height: 5'7" Code: 8302-2 Temperature: 36.6 (C) / 97.8 (F) Weight: 233 lbs Code: 60573-1 07/31/2011 Blood Pressure 1: 138/86 Code: 8480-6 BMI: 37.0 Code: 25825-3 Heart Rate 1: 94 bpm Height: 5'7" Code: 8302-2 Temperature: 35.4 (C) / 95.7 (F) Weight: 236 lbs Code: 47460-9 07/25/2011 Blood Pressure 1: 128/80 Code: 8480-6 BMI: 37.0 Code: 11912-8 Heart Rate 1: 80 bpm Height: 5'7" Code: 8302-2 Temperature: 35.6 (C) / 96.0 (F) Weight: 236 lbs Code: 10473-4 07/12/2011 Blood Pressure 1: 132/80 Code: 8480-6 BMI: 37.0 Code: 27735-5 Heart Rate 1: 96 bpm Height: 5'7" Code: 8302-2 Respiratory Rate: 20 bpm Temperatu re: 36.3 (C) / 97.3 (F) Weight: 236 lbs Code: 18902-2 05/09/2011 Blood Pressure 1: 106/78 Code: 8480-6 BMI: 36.6 Code: 37679-2 Heart Rate 1: 72 bpm Height: 5'7" Code: 8302-2 Respiratory Rate: 20 bpm Temperatu re: 36.4 (C) / 97.6 (F) Weight: 234 lbs Code: 58732-8 05/02/2011 Blood Pressure 1: 96/72 Code: 8480-6 BMI: 36.6 C ode: 54110-4 Heart Rate 1: 108 bpm Height: 5'7" Code: 8302-2 Respiratory Rate: 24 bpm Temperatu re: 36.7 (C) / 98.0 (F) Weight: 234 lbs Code: 06144-7 04/25/2011 Blood Pressure 1: 120/72 Code: 8480-6 BMI: 36.5 Code: 22952-3 Heart Rate 1: 70 bpm Height: 5'7" Code: 8302-2 Temperature: 36.7 (C) / 98.0 (F) Weight: 233 lbs Code: 33234-8 04/04/2011 Blood Pressure 1: 126/92 Code: 8480-6 BMI: 36.5 Code: 83353-1 Heart Rate 1: 84 bpm Height: 5'7" Code: 8302-2 Respiratory Rate: 20 bpm Temperatu re: 36.2 (C) / 97.2 (F) Weight: 233 lbs Code: 07629-0 03/01/2011 Blood Pressure 1: 132/78 Code: 8480-6 Heart Rate 1: 88 bpm Temperature: 36.8 (C) / 98.2 (F) Weight: 231 lbs Code: 26755-7 01/04/2011 Blood Pressure 1: 122/78 Code: 8480-6 BMI: 37.0 Code: 94183-9 Heart Rate 1: 80 bpm Height: 5'7" Code: 8302-2 Temperature: 37.0 (C) / 98.6 (F) Weight: 236 lbs Code: 51317-2 12/07/2010 Blood Pressure 1: 132/92 Code: 8480-6 Heart Rate 1: 98 bpm Temperature: 36.2 (C) / 97.2 (F) Weight: 237 lbs Code: 47426-7 10/09/2010 Blood Pressure 1: 128/80 Code: 8480-6 Heart Rate 1: 72 bpm Temperature: 36.5 (C) / 97.7 (F) Weight: 244 lbs Code: 52846-0 08/07/2010 Blood Pressure 1: 114/80 Code: 8480-6 Heart Rate 1: 72 bpm Temperature: 36.2 (C) / 97.1 (F) Weight: 245 lbs Code: 34624-8 06/06/2010 Blood Pressure 1: 132/86 Code: 8480-6 Heart Rate 1: 80 bpm Temperature: 36.8 (C) / 98.2 (F) Weight: 242 lbs Code: 51419-7 04/12/2010 Blood Pressure 1: 126/82 Code: 8480-6 Heart Rate 1: 72 bpm Temperature: 36.8 (C) / 98.2 (F) Weight: 237 lbs Code: 60559-5 03/20/2010 Blood Pressure 1: 124/78 Code: 8480-6 Heart Rate 1: 76 bpm Temperature: 36.1 (C) / 97.0 (F) Weight: 239 lbs Code: 64458-6 01/30/2010 Blood Pressure 1: 118/80 Code: 8480-6 Heart Rate 1: 84 bpm Temperature: 37.1 (C) / 98.7 (F) Weight: 239 lbs Code: 46886-7 01/09/2010 Blood Pressure 1: 120/72 Code: 8480-6 BMI: 36.8 Code: 93916-8 Heart Rate 1: 80 bpm Height: 5'7" Code: 8302-2 Temperature: 36.1 (C) / 97.0 (F) Weight: 235 lbs Code: 83111-1 11/07/2009 Blood Pressure 1: 140/36 Cod e: 8480-6 10/26/2009 Blood Pressure 1: 126/82 Code: 8480-6 BMI: 36.9 Code: 14688-6 Heart Rate 1: 84 bpm Height: 5'7" Code: 8302-2 Temperature: 36.5 (C) / 97.7 (F) Weight: 234 lbs Code: 96290-6 10/17/2009 Blood Pressure 1: 140/88 Code: 8480-6 BMI: 36.3 Code: 50954-1 Heart Rate 1: 88 bpm Height: 5'7" Code: 8302-2 Temperature: 36.7 (C) / 98.0 (F) Weight: 232 lbs Code: 64677-5 10/04/2009 Blood Pressure 1: 140/90 Code: 8480-6 BMI: 36.3 Code: 89763-8 Heart Rate 1: 84 bpm Height: 5'7" Code: 8302-2 Temperature: 36.4 (C) / 97.6 (F) Weight: 232 lbs Code: 64282-1 09/21/2009 Blood Pressure 1: 136/82 Code: 8480-6 BMI: 36.3 Code: 79814-6 Heart Rate 1: 88 bpm Height: 5'7" Code: 8302-2 Temperature: 35.8 (C) / 96.4 (F) Weight: 232 lbs Code: 77043-3 Functional Status No Functional Status data Reason [...] 09/04/2011 chest congestion 09/04/2011 follow up 08/14/2011 [facility] 08/14/2011 venous thrombosis 08/14/2011 abdominal pain 08/14/2011 [...] Encounter Performer Location Location Address Codes Date ([id number]) OFFICE/OUTPATIENT VISIT EST Diagnosis: Dehydration[ICD10: E86.0] Diagnosis: Acute cystitis[ICD10: N30.00] Marlene VANESSA DO [employer] [address] [place] [id number] CPT-4: 70989 09/10/2022 ([id number]) OFFICE/OUTPATIENT VISIT EST Diagnosis: Acute cystitis[ICD10: N30.00] Marlene VANESSA DO [facility] [address] [place] [address] CPT-4: 06632 09/05/2022 ([id number]) OFFICE/OUTPATIENT VISIT EST Diagnosis: Degeneration of lumbar or lumbosacral intervertebral disc[ICD10: M51.37] Diagnosis: Cervicalgia[ICD10: M54.2] Marlene ELAM [facility] [address] [place] [address] CPT-4: 97211 08/30/2022 ([id number]) OFFICE/OUTPATIENT VISIT EST Diagnosis: Hypothyroidism[ICD10: E03.9] Diagnosis: Essential (primary) hypertension[ICD10: I10] Diagnosis: Mixed hyperlipidemia[ICD10: E78.2] Diagnosis: Stress at home[ICD10: F43.9] Jayna MORILLOLINE TracyPaige JANISER DO [address] [address] CPT-4: 47621 08/07/2022 ([id number]) OFFICE/OUTPATIENT VISIT EST Diagnosis: Acute cystitis[ICD10: N30.00] Marlene MolinaPaige ANDIE DO [address] [address] CPT-4: 68555 06/29/2022 ([id number]) OFFICE/OUTPATIENT VISIT EST Diagnosis: Depression[ICD10: F32.A] Diagnosis: Hypothyroidism[ICD10: E03.9] Jayna Oremarialuisa GUTIERREZ TracyPaige ANDIE DO [address] [address] CPT-4: 90438 05/28/2022 ([id number]) OFFICE/OUTPATIENT VISIT EST Diagnosis: Depression[ICD10: F32.A] Diagnosis: Fatigue[ICD10: R53.83] Diagnosis: Hypothyroidism[ICD10: E03.9] Diagnosis: Hyperglycemia[ICD10: R73.9] Jayna Jessicamraialuisa PUCKETT DO [address] [address] CPT-4: 81963 05/10/2022 ([id number]) OFFICE/OUTPATIENT VISIT EST Diagnosis: Migraine, intractable[ICD10: G43.919] Marlene VILLARREALEMILIO GERBER TracyPaige ANDIE DO [address] [address] CPT-4: 50686 04/18/2022 ([id number]) NURSE/OUTPATIENT VISIT EST Diagnosis: FLU VACCINE[ICD10: Z23] Jayna Jessicamarialuisa GUTIERREZ TracyPaige JESSICAND ER DO [address] [address] CPT-4: 14820 04/05/2022 ([id number]) OFFICE/OUTPATIENT VISIT EST Diagnosis: Allergic rhinitis[ICD10: J30.9] Diagnosis: Acute sinusitis[ICD10: J01.90] 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] Jayna Sanchez JESSICAMARIALUISA DO [address] [address] CPT-4: 79591 02/15/2022 ([id number]) Annual depression screening, 15 minutes Diagnosis: Encounter for general adult medical examination without abnormal findings[ICD10: Z00.00] Diagnosis: Essential (primary) hypertension[ICD10: I10] Diagnosis: Mixed hyperlipidemia[ICD10: E78.2] Diagnosis: Hypothyroidism, unspecified[ICD10: E03.9] Diagnosis: Chronic obstructive pulmonary disease, unspecified[ICD10: J44.9] Jayna VANESSA [address] [address] CPT-4: G0444 02/06/2022 ([id number]) OFFICE/OUTPATIENT VISIT EST Diagnosis: 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] Diagnosis: Vision changes[ICD10: H53.9] Latasha Rosashoa VANESSA [address] [address] CPT-4: 39971 02/01/2022 ([id number]) OFFICE/OUTPATIENT VISIT EST Diagnosis: Diarrhea[ICD10: R19.7] Diagnosis: Cough[ICD10: R05.9] Jayna VANESSA [address] [address] CPT-4: 08793 11/30/19 ([id number]) OFFICE/OUTPATIENT VISIT EST Diagnosis: Post-viral cough syndrome[ICD10: R05.8] Diagnosis: Otalgia of both ears[ICD10: H92.03] Diagnosis: Diarrhea[ICD10: R19.7] Jayna Villalba [address] [address] CPT-4: 69639 11/22/2021 ([id number]) OFFICE/OUTPATIENT VISIT EST Diagnosis: Diarrhea of presumed infectious origin[ICD10: R19.7] Diagnosis: Altered taste[ICD10: R43.2] Diagnosis: Chronic bronchitis[ICD10: J42] Diagnosis: History of recent pneumonia[ICD10: Z87.01] Latahsa VANESSA DO [address] [address] CPT- 4: 21654 11/21/2021 ([id number]) OFFICE/OUTPATIENT VISIT EST Diagnosis: Serous otitis media[ICD10: H65.90] Diagnosis: Postnasal drip[ICD10: R09.82] Diagnosis: Pneumonia[ICD10: J18.9] Jayna BRUCE ER DO [address] [address] CPT-4: 52046 11/09/2021 ([id number]) NO CHARGE Diagnosis: Pneumonia[ICD10: J18.9] Diagnosis: Respiratory distress[ICD10: R06.03] Jayna BRUCEER DO [address] [address] CPT-4: 06335 10/31/2021 ([id number]) OFFICE/OUTPATIENT VISIT EST Diagnosis: Vertigo[ICD10: R42] Diagnosis: Nausea[ICD10: R11.0] Diagnosis: Pneumonia[ICD10: J18.9] Jayna BRUCE ER DO [address] [address] CPT-4: 71099 10/30/2021 ([id number]) OFFICE/OUTPATIENT VISIT EST Diagnosis: Cervicalgia[ICD10: M54.2] Jayna GREENBERG NDER DO [address] [address] CPT-4: 04724 09/05/2021 ([id number]) OFFICE/OUTPATIENT VISIT EST Diagnosis: 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] Diagnosis: Seronegative rheumatoid arthritis[ICD10: M06.00] Latasha VANESSA DO [address] [address] CPT- 4: 10549 08/24/2021 ([id number]) OFFICE/OUTPATIENT VISIT EST Diagnosis: Upper respiratory infection[ICD10: J06.9] Diagnosis: Contact with and (suspected) exposure to other viral communicable diseases[ICD10: Z20.828] Latasha VANESSA DO [address] [address] CPT-4: 53411 07/04/2021 ([id number]) NURSE/OUTPATIENT VISIT EST Diagnosis: FLU VACCINE[ICD10: Z23] Jayna JIANG [address] [address] CPT-4: 55103 03/29/2021 ([id number]) OFFICE/OUTPATIENT VISIT EST Diagnosis: Vasovagal episode[ICD10: R55] Diagnosis: Orthostatic hypotension[ICD10: I95.1] Latasha VANESSA DO [address] [address] CPT-4: 06646 03/01/2021 ([id number]) OFFICE/OUTPATIENT VISIT EST Diagnosis: Sebaceous cyst of right axilla[ICD10: L72.3] Latasha VANESSA DO [address] [address] CPT- 4: 29242 02/08/2021 ([id number]) OFFICE/OUTPATIENT VISIT EST Diagnosis: Contact dermatitis[ICD10: L25.9] Jayna VANESSA DO [address] [address] CPT-4: 30169 01/19/2021 ([id number]) OFFICE/OUTPATIENT VISIT EST Diagnosis: Upper respiratory infection[ICD10: J06.9] Diagnosis: COPD exacerbation[ICD10: J44.1] Latasha VANESSA DO [address] [address] CPT-4: 99861 11/29/2020 ([id number]) OFFICE/OUTPATIENT VISIT EST Diagnosis: Sinusitis[ICD10: J32.9] Diagnosis: Acute pansinusitis, recurrence not specified[ICD10: J01.40] Latasha VANESSA DO [facility] [address] [place] [address] CPT-4: 00485 09/29/2020 OFFICE/OUTPATIENT VISIT EST Diagnosis: Other seasonal allergic rhinitis[ICD10: J30.2] Diagnosis: Chronic bronchitis[ICD10: J42] Diagnosis: 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] Diagnosis: Middle ear effusion[ICD10: H65.90] Diagnosis: Fluid level behind tympanic membrane of both ears[ICD10: H65.93] Latasha VANESSA DO [facility] [address] [place] [address] CPT-4: 42939 09/19/2020 ([id number]) OFFICE/OUTPATIENT VISIT EST Diagnosis: Right-sided tinnitus[ICD10: H93.11] Jayna VANESSA DO [address] [address] CPT-4: 87676 08/10/2020 ([id number]) OFFICE/OUTPATIENT VISIT EST Diagnosis: Dysfunction of right eustachian tube[ICD10: H69.81] Diagnosis: Right-sided tinnitus[ICD10: H93.11] [facility] [address] [place] [address] CPT-4: 69585 2020 ([id number]) OFFICE/OUTPATIENT VISIT EST Diagnosis: Pyelonephritis[ICD10: N12] Diagnosis: Anemia[ICD10: D64.9] Diagnosis: Blood in stool[ICD10: K92.1] Jayna VANESSA DO [facility] [address] [place] [address] CPT-4: 67044 07/13/2020 ([id number]) OFFICE/OUTPATIENT VISIT EST Diagnosis: Acute gastroenteritis[ICD10: K52.9] Jayna VANESSA DO [facility] [address] [place] [address] CPT-4: 14688 07/05/2020 ([id number]) OFFICE/OUTPATIENT VISIT EST Diagnosis: Essential hypertension[ICD10: I10] Diagnosis: Hypothyroidism, unspecified[ICD10: E03.9] Diagnosis: Metabolic syndrome[ICD10: E88.81] Diagnosis: Mixed hyperlipidemia[ICD10: E78.2] Diagnosis: 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] Jayna GREENBERGNDAPOLINAR [address] [address] CPT- 4: 51340 06/22/2020 ([id number]) OFFICE/OUTPATIENT VISIT EST Diagnosis: Urinary tract infection[ICD10: N39.0] Jayna VILLARREALEMILIO BUZZ VANESSA [address] [address] CPT-4: 19797 05/17/2020 ([id number]) OFFICE/OUTPATIENT VISIT EST Diagnosis: Right pulmonary embolus[ICD10: I26.99] Jayna Vanessa NORRIS StonerBUZZ SPaige GREENBERGNDER [address] [address] CPT-4: 03164 03/14/2020 ([id number]) OFFICE/OUTPATIENT VISIT EST Diagnosis: COVID-19[ICD10: U07.1] Diagnosis: Pneumonia[ICD10: J18.9] Diagnosis: Dyspnea[ICD10: R06.00] Jayna Villalba [address] [address] CPT-4: 73690 03/07/2020 ([id number]) OFFICE/OUTPATIENT VISIT EST Diagnosis: Upper respiratory infection[ICD10: J06.9] Genesis Jolene MUNOZBUZZ S. ORENDER DO [address] [address] CPT-4: 55264 02/11/2020 ([id number]) OFFICE/OUTPATIENT VISIT EST Diagnosis: Dermatitis[ICD10: L30.9] Diagnosis: Urticaria[ICD10: L50.9] Jayna Oreleydaapolinar [facility] [address] [place] [address] CPT-4: 62759 09/29/2019 ([id number]) OFFICE/OUTPATIENT VISIT EST Diagnosis: Bone spur of right foot[ICD10: M77.51] Diagnosis: Recurrent UTI[ICD10: N39.0] Diagnosis: MRSA (methicillin resistant staph aureus) culture positive[ICD10: Z22.322] [facility] [address] [place] [address] CPT-4: 69784 09/14/2019 ([id number]) NURSE/OUTPATIENT VISIT EST Diagnosis: Urinary tract infection[ICD10: N39.0] Jayna VANESSA DO [facility] [address] [place] [address] CPT-4: 45468 09/11/2019 ([id number]) NURSE/OUTPATIENT VISIT EST Diagnosis: Urinary tract infection, site not specified[ICD10: N39.0] Jayna VANESSA DO [address] [address] CPT-4: 13250 09/08/2019 ([id number]) NURSE/OUTPATIENT VISIT EST Diagnosis: Urinary tract infection, site not specified[ICD10: N39.0] Jayna VANESSA DO [facility] [address] [place] [address] CPT-4: 46871 09/07/2019 ([id number]) OFFICE/OUTPATIENT VISIT EST Diagnosis: Pelvic pain in female[ICD10: R10.2] Diagnosis: Urinary frequency[ICD10: R35.0] Genesis VANESSA DO [facility] [address] [place] [address] CPT-4: 96802 09/02/2019 ([id number]) OFFICE/OUTPATIENT VISIT EST Diagnosis: Sinusitis[ICD10: J32.9] Genesis BRUCE ER DO [facility] [address] [place] [address] CPT-4: 21623 07/09/2019 ([id number]) OFFICE/OUTPATIENT VISIT EST Diagnosis: UTI (urinary tract infection)[ICD10: N39.0] Diagnosis: FLU VACCINE[ICD10: Z23] [facility] [address] [place] [address] CPT-4: 06319 04/15/2019 ([id number]) OFFICE/OUTPATIENT VISIT EST Diagnosis: Pain in right leg[ICD10: M79.604] Genesis [facility] [address] [place] [address] CPT-4: 07808 04/07/2019 ([id number]) OFFICE/OUTPATIENT VISIT EST Diagnosis: Diverticulitis of large intestine without perforation or abscess without bleeding[ICD10: K57.32] Diagnosis: Cystitis[ICD10: N30.90] Jayna [facility] [address] [place] [address] CPT-4: 84788 03/25/2019 ([id number]) OFFICE/OUTPATIENT VISIT EST Diagnosis: Abdominal pain[ICD10: R10.9] Diagnosis: Cystitis[ICD10: N30.90] Jayna [facility] [address] [place] [address] CPT-4: 66171 03/18/2019 ([id number]) OFFICE/OUTPATIENT VISIT EST Diagnosis: Diverticulitis of large intestine without perforation or abscess without bleeding[ICD10: K57.32] Diagnosis: Generalized abdominal pain[ICD10: R10.84] Diagnosis: Urinary tract infection, site not specified[ICD10: N39.0] [facility] [address] [place] [address] CPT-4: 21630 01/26/2019 ([id number]) OFFICE/OUTPATIENT VISIT EST Diagnosis: Mild intermittent asthma with (acute) exacerbation[ICD10: J45.21] Diagnosis: Allergic rhinitis due to pollen[ICD10: J30.1] [facility]Jyna [facility] [address] [place] [address] CPT- 4: 19265 01/08/2019 ([id number]) OFFICE/OUTPATIENT VISIT EST Diagnosis: Mild intermittent asthma with (acute) exacerbation[ICD10: J45.21] Diagnosis: URI, ACUTE[ICD10: J06.9] Diagnosis: Urinary tract infection, site not specified[ICD10: N39.0] Jayna VANESSA DO [facility] [address] [place] [address] CPT-4: 00341 01/06/2019 ([id number]) OFFICE/OUTPATIENT VISIT EST Diagnosis: Benign paroxysmal vertigo, bilateral[ICD10: H81.13] Diagnosis: Migraine without aura, not intractable, without status migrainosus[ICD10: G43.009] Jayna VANESSA DO [facility] [address] [place] [address] CPT-4: 57188 10/30/2018 ([id number]) OFFICE/OUTPATIENT VISIT EST Diagnosis: Acute bronchitis, unspecified[ICD10: J20.9] Diagnosis: Cough[ICD10: R05] Diagnosis: Other seasonal allergic rhinitis[ICD10: J30.2] Stacey VANESSA DO [address] [address] CPT- 4: 58514 10/07/2018 ([id number]) OFFICE/OUTPATIENT VISIT EST Diagnosis: Pain in unspecified joint[ICD10: M25.50] Diagnosis: Pain in right ankle and joints of right foot[ICD10: M25.571] Diagnosis: Other specified disorders of bone density and structure, unspecified site[ICD10: M85.80] Jayna Andie MORILLOLINE Daniel VANESSA DO [address] [address] CPT-4: 71203 06/23/2018 ([id number]) OFFICE/OUTPATIENT VISIT EST Diagnosis: Hypothyroidism, unspecified[ICD10: E03.9] Diagnosis: Mixed hyperlipidemia[ICD10: E78.2] Jayna Andie CHERELLEMINTAMI ALVARENGA Daniel VANESSA DO [address] [address] CPT-4: 49464 01/16/2018 ([id number]) OFFICE/OUTPATIENT VISIT EST Diagnosis: Cervicalgia[ICD10: M54.2] Genesis ELAM DO [address] [address] CPT-4: 26008 10/16/2017 ([id number]) OFFICE/OUTPATIENT VISIT EST Diagnosis: Headache[ICD10: R51] Diagnosis: Dizziness and giddiness[ICD10: R42] Jayna Andie FLAKITO GREENBERGNDER DO [address] [address] CPT-4: 76883 09/12/2017 OFFICE/OUTPATIENT VISIT EST Diagnosis: Cough[ICD10: R05] Genesis BRUCEER DO [facility] [address] [place] [address] CPT-4: 06153 08/20/2017 ([id number]) OFFICE/OUTPATIENT VISIT EST Diagnosis: COUGH[ICD10: R05] Jayna BRUCEER DO [address] [address] CPT-4: 53972 08/13/19 ([id number]) OFFICE/OUTPATIENT VISIT EST Diagnosis: Acute bronchospasm[ICD10: J98.01] Jayna Orendapolinar GREENBERGNDER DO [address] [address] CPT-4: 05122 07/29/2017 OFFICE/OUTPATIENT VISIT EST Diagnosis: Influenza due to identified novel influenza A virus with other respiratory manifestations[ICD10: J09.X2] [facility] [address] [place] [address] CPT-4: 86234 07/25/2017 ([id number]) OFFICE/OUTPATIENT VISIT EST Diagnosis: Pain in unspecified joint[ICD10: M25.50] Jayna [facility] [address] [place] [address] CPT- 4: 47706 06/10/2017 OFFICE/OUTPATIENT VISIT EST Diagnosis: Acute bronchitis, unspecified[ICD10: J20.9] Genesis VANESSA [address] [address] CPT- 4: 41142 05/28/2017 ([id number]) OFFICE/OUTPATIENT VISIT EST Diagnosis: Hypothyroidism, unspecified[ICD10: E03.9] Diagnosis: Mixed hyperlipidemia[ICD10: E78.2] Diagnosis: Afisq-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] Diagnosis: Sebaceous cyst[ICD10: L72.3] Jayna Bruceapolinar JAYNA Daniel VANESSA [address] [address] CPT-4: 12104 11/28/2016 ([id number]) OFFICE/OUTPATIENT VISIT EST Diagnosis: Right upper quadrant pain[ICD10: R10.11] Diagnosis: Epigastric pain[ICD10: R10.13] Jayna Jessicamarialuisa JAYNA Tracy Paige ANDIE [address] [address] CPT-4: 02823 06/05/2016 ([id number]) OFFICE/OUTPATIENT VISIT EST Diagnosis: FLU VACCINE[ICD10: Z23] Jayna MORILLOLINE Daniel JIANG [address] [address] CPT-4: 58770 05/01/2016 OFFICE/OUTPATIENT VISIT EST Diagnosis: Hypothyroidism, unspecified[ICD10: E03.9] Diagnosis: Type 1 diabetes mellitus without complications[ICD10: E10.9] Diagnosis: Mixed hyperlipidemia[ICD10: E78.2] Diagnosis: Essential (primary) hypertension[ICD10: I10] Diagnosis: Mixed incontinence[ICD10: N39.46] Jayna Jessicamarialuisa Thomas TracyPaige ANDIE SAEZ [address] [address] CPT-4: 89565 11/08/2015 ([id number]) OFFICE/OUTPATIENT VISIT EST Diagnosis: Hypothyroidism, unspecified[ICD10: E03.9] Diagnosis: Other fatigue[ICD10: R53.83] Jayna GUTIERREZ Daniel VANESSA [address] [address] CPT-4: 61485 07/19/2015 ([id number]) OFFICE/OUTPATIENT VISIT EST Diagnosis: Hypothyroidism, unspecified[ICD10: E03.9] Diagnosis: Mixed hyperlipidemia[ICD10: E78.2] Diagnosis: Metabolic syndrome[ICD10: E88.81] Diagnosis: Right lower quadrant abdominal tenderness[ICD10: R10.813] Diagnosis: FLU VACCINE[ICD10: Z23] Jayna BRUCE [address] [address] CPT-4: 38135 03/28/2015 ([id number]) OFFICE/OUTPATIENT VISIT EST Diagnosis: MALAISE AND FATIGUE[ICD9: 780.79] Diagnosis: DEPRESSIVE DISORDER NEC[ICD9: 311] Diagnosis: HYPOTHYROIDISM[ICD9: 244.9] Diagnosis: PNEUMOCOCCAL VACCINE[ICD10: Z23] Jayna [address] [address] CPT-4: 48712 02/08/2015 ([id number]) OFFICE/OUTPATIENT VISIT EST Diagnosis: MALAISE AND FATIGUE[ICD9: 780.79] Diagnosis: DEPRESSIVE DISORDER NEC[ICD9: 311] Diagnosis: HYPOTHYROIDISM[ICD9: 244.9] Diagnosis: ARTHRALGIA-MULTIPLE SITES[ICD9: 719.49] Jayna [address] [address] CPT-4: 59390 01/11/2015 ([id number]) OFFICE/OUTPATIENT VISIT EST 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] Diagnosis: - I - HYPOTHYROIDISM[ICD9: 244.9] Diagnosis: COUGH[ICD10: R05] Diagnosis: ALLERGIC RHINITIS[ICD9: 477.9] Diagnosis: Lumbar degenerative disc disease[ICD9: 722.52] Jayna VANESSA [address] [address] CPT- 4: 79555 11/24/2014 ([id number]) OFFICE/OUTPATIENT VISIT EST Diagnosis: Allergic reaction[ICD9: 995.3] Galina Dafne JAYNA VANESSA DO [facility] [address] [place] [address] CPT-4: 07470 11/19/2014 ([id number]) OFFICE/OUTPATIENT VISIT EST Diagnosis: ALLERGIC RHINITIS[ICD9: 477.9] Diagnosis: WHEEZING[ICD9: 786.07] Diagnosis: URINARY TRACT INFECTION[ICD9: 599.0] Diagnosis: Right flank pain[ICD9: 789.09] Conchita BRUCEER DO [facility] [address] [place] [address] CPT-4: 02166 10/27/2014 ([id number]) OFFICE/OUTPATIENT VISIT EST Diagnosis: URINARY TRACT INFECTION[ICD9: 599.0] Diagnosis: Flank pain[ICD9: 789.09] Conchita CARTER DO [address] [address] CPT-4: 52366 09/23/2014 ([id number]) OFFICE/OUTPATIENT VISIT EST Diagnosis: HYPERTENSION[ICD9: 401.9] Diagnosis: - I - HYPOTHYROIDISM[ICD9: 244.9] Diagnosis: HYPERLIPIDEMIA NEC/NOS[ICD9: 272.4] Diagnosis: DYSMETABOLIC SYNDROME X[ICD9: 277.7] Jayna VANESSA DO [address] [address] CPT-4: 23331 07/28/2014 OFFICE/OUTPATIENT VISIT EST Diagnosis: HYPERTENSION[ICD9: 401.9] Diagnosis: GROSS HEMATURIA[ICD9: 599.71] Jayna VANESSA DO [facility] [address] [place] [address] CPT-4: 33849 03/30/2014 ([id number]) OFFICE/OUTPATIENT VISIT EST 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 ORE NDER DO [address] [address] CPT-4: 32470 11/24/2013 ([id number]) OFFICE/OUTPATIENT VISIT EST 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 O RENDER DO [address] [address] CPT-4: 80575 08/25/2013 OFFICE/OUTPATIENT VISIT EST Diagnosis: DEPRESSIVE DISORDER NEC[ICD9: 311] Jayna ALVARENGA S. ORENDER DO [address] [address] CPT-4: 88380 06/29/2013 OFFICE/OUTPATIENT VISIT EST Diagnosis: DEPRESSIVE DISORDER NEC[ICD9: 311] Jayna ALVARENGA S. ORENDER DO [address] [address] CPT-4: 28660 05/26/2013 ([id number]) OFFICE/OUTPATIENT VISIT EST Diagnosis: BRONCHITIS, ACUTE[ICD9: 466.0] Diagnosis: HYPOTHYROIDISM[ICD9: 244.9] Diagnosis: HYPERLIPIDEMIA NEC/NOS[ICD9: 272.4] Diagnosis: Shoulder pain[ICD9: 719.41] Jayna Jessicamarialuisa GUTIERREZ S. O RENDER DO [address] [address] CPT-4: 78224 05/06/2013 ([id number]) OFFICE/OUTPATIENT VISIT EST Diagnosis: BRONCHITIS, ACUTE[ICD9: 466.0] Diagnosis: SINUSITIS, ACUTE[ICD9: 461.9] Jayna GUTIERREZ S. ORENDER DO [address] [address] CPT-4: 65051 04/23/2013 ([id number]) OFFICE/OUTPATIENT VISIT EST Diagnosis: DYSPNEA[ICD9: 786.09] Diagnosis: EDEMA[ICD9: 782.3] Diagnosis: EOYEV-5-GAPKUFZVOTN DEFICIENCY[ICD9: 273.4] Diagnosis: COUGH[ICD9: 786.2] Jayna VANESSA DO [address] [address] CPT-4: 76647 03/31/20 13 OFFICE/OUTPATIENT VISIT EST Diagnosis: Chest pain[ICD9: 786.50] Diagnosis: ANXIETY STATE NOS[ICD9: 300.00] Conchita VANESSA DO [address] [address] CPT-4: 75769 03/05/2013 ([id number]) OFFICE/OUTPATIENT VISIT EST Diagnosis: HYPERLIPIDEMIA NEC/NOS[ICD9: 272.4] Diagnosis: HYPOTHYROIDISM[ICD9: 244.9] Diagnosis: Affby-1-lbfyucellsl deficiency[ICD9: 273.4] Diagnosis: ALLERGIC RHINITIS[ICD9: 477.9] Jayna VANESSA DO [address] [address] CPT-4: 99158 02/04/2013 ([id number]) OFFICE/OUTPATIENT VISIT EST Diagnosis: COUGH[ICD9: 786.2] Diagnosis: ALLERGIC RHINITIS[ICD9: 477.9] Jayna VANESSA DO [address] [address] CPT-4: 97427 11/27/2012 ([id number]) OFFICE/OUTPATIENT VISIT EST Diagnosis: COUGH[ICD9: 786.2] Diagnosis: DYSPNEA[ICD9: 786.09] Jayna VANESSA DO [address] [address] CPT-4: 75065 11/11/2012 ([id number]) OFFICE/OUTPATIENT VISIT EST Diagnosis: ABDOMINAL PAIN[ICD9: 789.00] Diagnosis: DIARRHEA[ICD9: 787.91] Diagnosis: COUGH[ICD9: 786.2] Jayna VANESSA DO [address] [address] CPT-4: 13317 10/21/19 13 OFFICE/OUTPATIENT VISIT EST Diagnosis: COUGH[ICD9: 786.2] Diagnosis: SINUSITIS, ACUTE[ICD9: 461.9] Diagnosis: PHARYNGITIS, ACUTE[ICD9: 462] Jayna MORILLOLINE TracyPaige ANDIE [address] [address] CPT-4: 62228 09/03/2012 OFFICE/OUTPATIENT VISIT EST Diagnosis: ABDOMINAL PAIN[ICD9: 789.00] Diagnosis: Diarrhea[ICD9: 787.91] Jayna Jessicamarialuisa GUTIERREZ TracyPaige BIANCA Villalba DO [address] [address] CPT-4: 77873 07/23/2012 ([id number]) OFFICE/OUTPATIENT VISIT EST Diagnosis: DM 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 TYPE II, UNCONTROLLED[ICD9: 250.02] Diagnosis: HYPERLIPIDEMIA NEC/NOS[ICD9: 272.4] Diagnosis: GERD[ICD9: 530.81] Jayna Jessicamarialuisa GUTIERREZ TracyPaige ANDIE [address] [address] CPT-4: 62690 05/20/20 OFFICE/OUTPATIENT VISIT EST Diagnosis: DERMATITIS NOS[ICD9: 692.9] Galina GUTIERREZ TracyPaige PUCKETT [address] [address] CPT-4: 01402 04/04/2012 ([id number]) OFFICE/OUTPATIENT VISIT EST Diagnosis: HYPERLIPIDEMIA NEC/NOS[ICD9: 272.4] Diagnosis: HYPOTHYROIDISM[ICD9: 244.9] Diagnosis: DYSMETABOLIC SYNDROME X[ICD9: 277.7] Jayna Jessciamarialuisa QUEZADA TracyPaige ANDIE [address] [address] CPT-4: 40897 01/02/2012 OFFICE/OUTPATIENT VISIT EST Diagnosis: COUGH[ICD9: 786.2] Diagnosis: SINUSITIS, ACUTE[ICD9: 461.9] Lizzie GUTIERREZ TracyPaige ANDIE [address] [address] CPT-4: 19622 09/04/2011 OFFICE/OUTPATIENT VISIT EST Diagnosis: Diverticulitis[ICD9: 562.11] Diagnosis: THROMBOPHLEBITIS[ICD9: 451.9] Jayna VANESSA DO [address] [address] CPT-4: 22890 08/14/2011 OFFICE/OUTPATIENT VISIT EST Diagnosis: COUGH[ICD9: 786.2] Jayna VANESSA DO [address] [address] CPT-4: 18488 07/25/19 12 OFFICE/OUTPATIENT VISIT EST Diagnosis: HYPOTHYROIDISM[ICD9: 244.9] Diagnosis: HYPERLIPIDEMIA NEC/NOS[ICD9: 272.4] Diagnosis: Total knee replacement status[ICD9: V43.65] Jayna VANESSA DO [address] [address] CPT- 4: 08642 07/12/2011 OFFICE/OUTPATIENT VISIT EST Diagnosis: BRONCHITIS, ACUTE[ICD9: 466.0] Diagnosis: COUGH[ICD9: 786.2] Jayna VANESSA DO [address] [address] CPT-4: 78207 05/09/20 11 OFFICE/OUTPATIENT VISIT EST Diagnosis: BRONCHITIS, ACUTE[ICD9: 466.0] Diagnosis: ASTHMA NOS[ICD9: 493.90] Diagnosis: Pleurisy[ICD9: 511.0] Jayna VANESSA DO [address] [address] CPT-4: 15017 05/02/2011 OFFICE/OUTPATIENT VISIT EST Diagnosis: COUGH[ICD9: 786.2] Jayna VANESSA DO [address] [address] CPT-4: 77438 04/25/20 11 OFFICE/OUTPATIENT VISIT EST Diagnosis: COUGH[ICD9: 786.2] Diagnosis: SINUSITIS, ACUTE[ICD9: 461.9] Jayna VANESSA [address] [place] [address] CPT-4: 73182 04/04/2011 OFFICE/OUTPATIENT VISIT EST Diagnosis: HYPOTHYROIDISM[ICD9: 244.9] Diagnosis: Knee osteoarthritis[ICD9: 715.96] Jaynaparam Vanessa [facility] [address] [place] [phone] CPT-4: 49588 03/01/2011 OFFICE/OUTPATIENT VISIT EST Jayna Jessicaleydaapolinar [facility] [address] [place] [phone] CPT-4: 61310 01/04/2011 ([id number]) OFFICE/OUTPATIENT VISIT EST Jayna Jessicaleydaapolinar [facility] [address] [place] [phone] CPT-4: 49163 12/07/2010 ([id number]) OFFICE/OUTPATIENT VISIT EST Jayna Jessicamarialuisa [facility] [address] [place] [phone] CPT-4: 84223 10/09/2010 ([id number]) OFFICE/OUTPATIENT VISIT EST Jayna Andie [facility] [address] [place] [phone] CPT-4: 87537 08/07/2010 ([id number]) OFFICE/OUTPATIENT VISIT, EST Jayna Jessicamarialuisa [facility] [address] [place] [phone] CPT-4: 35910 06/06/2010 ([id number]) OFFICE/OUTPATIENT VISIT, EST Jayna Jessicamarialuisa [facility] [address] [place] [phone] CPT-4: 37045 03/20/2010 ([id number]) OFFICE/OUTPATIENT VISIT, EST Jayna [facility] [address] [place] [phone] CPT-4: 11560 01/30/2010 ([id number]) OFFICE/OUTPATIENT VISIT, EULOGIO VANESSA DO [facility] [address] [place] [address] CPT-4: 92522 01/09/2010 (15210) OFFICE/OUTPATIENT VISIT, EULOGIO VANESSA DO [facility] [address] [place] [address] CPT-4: 17961 10/26/2009 ([id number]) OFFICE/OUTPATIENT VISIT, EULOGIO VANESSA DO [facility] [address] [place] [phone] CPT-4: 94761 10/18/19 10 ([id number]) OFFICE/OUTPATIENT VISIT, EULOGIO VANESSA DO [facility] [address] [place] [phone] CPT-4: 38086 10/04/2009 (12616) OFFICE/OUTPATIENT VISIT, EULOGIO VANESSA DO [facility] [address] [place] [phone] CPT-4: 32547 09/21/2009 Plan of Care Planned Activity Notes Codes Status Date Visit Diagnosis Plan: Acute cystitis Discussion: NOT r esponding to Macrobid-- resistant to multiple oral antibiotics. Consulted with Dr. Vanessa and agreeable with direct admit for IVF and antibiotics. Patient will be admitted to [address] [place] [address]-- #415. ICD-9 : 595.0 ICD-10 : N30.00 [...] 09/05/2022 Appointment: Marlene Staples WPtel: [phone] [phone] ACUTE ILLNESS 09/05/2022 Patient Education: Patient Medication [...] M51.37 08/30/2022 Appointment: Marlene Staples WPtel: [phone] [phone] FOLLOW UP 08/30/2022 Patient Education: Patient Medication Summary Completed 08/30/2022 Visit Diagnosis Plan: Discussion: Stable Labs disc ussed 08/07/2022 Visit Diagnosis Plan: Essential (primary) hypertension Discussion: Stable ICD-9 : 401.9 ICD-10 : I10 08/07/2022 Visit Diagnosis Plan: Discussion: Update lipids 08/07/2022 Visit Diagnosis Plan: Stress at home Discussion: With 's health ICD-9 : V61.9 ICD-10 : F43.9 08/07/2022 Appointment: Jayna Vanessa WPtel: [phone] [phone] FOLLOW UP 08/07/2022 Visit Diagnosis Plan: [...] N30.00 06/29/2022 Appointment: Marlene Staples WPtel: [phone] [phone] ACUTE ILLNESS 06/29/2022 Patient Education: ciprofloxacin HCl- OptimizeRX Coupon [id number] Completed 06/29/2022 Visit Diagnosis Plan: Depression Discussion: Increase Wellbutrin XL to 300mg po qAM Fwup 2 mos ICD-9 : 311 ICD-10 : F32.A 05/28/2022 Visit Diagnosis Plan: Hypothyroidism Discussion: Labs discussed Decrease levothyroxine to 150mcg 6 days a week and repeat thyroid lab in 2mos ICD-9 : 244.9 ICD-10 : E03.9 05/28/2022 Appointment: Jayna Vanessa WPtel: [phone] [phone] US FOLLOW UP 05/28/2022 Visit Diagnosis [...] R73.9 05/10/2022 Appointment: Jayna Vanessa WPtel: [phone] [phone] US FOLLOW UP 05/10/2022 Visit Diagnosis Plan: Migraine, intractable Discussion : Toradol 30mg IM x1 given in clinic. Start Rizatriptan-- discussed on how to use and may repeat x1 dose 2 hours later. Restart propranolol for migraine prevention. Notify clinic if migraine not improving. ICD-9 : 346.91 ICD-10 : G43.919 04/18/2022 Appointment: Marlene Staples WPtel: [phone] [facility] AC[facility] ILLNESS 04/18/2022 Patient Education: propranolol- OptimizeRX Coupon [id number] Completed 04/18/2022 [facility]ointment: [phone] [facility] INJECTION 04/05/2022 Appointment: Jayna Vanessa WPtel[facility] [phone] [phone] US CANCELED 03/21/2022 Visit Diagnosis Plan: Acute [...] J30.9 02/15/2022 Appointment: Jayna Vanessa [facility]Ptel[facility] [phone] [phone] [place] ACUTE ILLNESS 02/15/2022 Patient Education: prednisone- OptimizeRX Coupon [phone] https://www.[employer]/samplemd/resources/getResource/61/28o42is2-j095-8g98-cw Completed 02/15/2022 Visit Diagnosis Plan: Hypothyroidism, unspecified Disc ussion: Stable ICD-9 : 244.9 ICD-10 : E03.9 02/06/2022 Visit Diagnosis Plan: Encounter for [facility] adult medical examination without abnormal findings Discussion: [...] J44.9 02/06/2022 Appointment: Jayna Vanessa WPtel: [phone] [phone] Annual Well Visit 02/06/2022 Care Plan: Annual depression screening, 15 minutes 02/06/2022 Visit Diagnosis Plan: 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 Patient declines- will get stat CT of the head, cbc, cmp, and ESR and fwup with results [facility] sample given ICD-9 : 346.03 ICD-10 : G43.111 02/01/2022 Appointment: Latasha Anand WPtel: [phone] [phone] ACUTE ILLNESS 02/01/2022 Patient Education: Patient Medication [...] R19.7 11/29/2021 Appointment: Jayna Vanessa WPtel: [phone] [phone] US FOLLOW UP 11/29/2021 Visit Diagnosis Plan: Diarrhea Discussion: C Diff nega tive Treat with diflucan and Restora-RX Fwup 1 week ICD-9 : 787.91 ICD-10 : R19.7 11/22/2021 Visit Diagnosis Plan: Post-viral cough syndrome Discus joaquín: Change albuterol to Breztri 2p BID Add singulair 10mg po q HS ICD-9 : 786.2 ICD-10 : R05.8 11/22/2021 Appointment: Jayna Vanessa WPtel: [address] [place], [place] [phone] ACUTE ILLNESS 11/22/2021 Patient Education: Carl Coats [phone] https://www.[employer]/samplemd/resources/getResource/61/9f23ihc9-2txr-6262-2o Completed 11/22/2021 Visit Diagnosis Plan: Diarrhea of presumed infectious origin Discussion: Will check for c-diff due to recent antibiotics and foul smelling diarrhea ICD-9 : 009.3 ICD-10 : R19.7 11/21/2021 Visit Diagnosis Plan: History of recent pneumonia Disc ussion: Check cbc, cmp, ESR, and cxr now ICD-9 : V12.61 ICD-10 : Z87.01 11/21/2021 Appointment: Latasha Anand WPtel: [address] [place] [address] ACUTE ILLNESS 11/21/2021 Patient Education: Patient Medication Summary Completed 11/21/2021 Visit Diagnosis Plan: Pneumonia Discussion: Finish all abx and continue albuterol Fwup next week ICD-9 : 486 ICD-10 : J18.9 11/09/2021 Visit Diagnosis Plan: Serous otitis media Discussion: Kenalog 40mg with Dexamethasone 2mg IM now ICD-9 : 381.4 ICD-10 : H65.90 11/09/2021 Appointment: Jayna Vanessa WPtel: [address] [place], [place] [address] [facility] Follow Up 11/09/2021 Visit Diagnosis Plan: Pneumonia Discussion: Admit to h ospital ICD-9 : 486 ICD-10 : J18.9 10/31/2021 Appointment: Jayna Vanessa WPtel: [address] [place], [place] [phone] FOLLOW UP 10/31/2021 Visit Diagnosis Plan: Nausea [...] prn 10/30/2021 Appointment: Jayna Vanessa WPtel: [phone] [phone] US ACUTE ILLNESS 10/30/2021 Visit Diagnosis Plan: Cervicalgia Discussion: Had x-ra ys done Kenalog 40mg IM now Baclofen prn Mobic for 1 week Topical muscle rube Moist heat and stretches shown Has PT sessions scheduled next week so will add in therapy for neck ICD-9 : 723.1 ICD-10 : M54.2 09/05/2021 Appointment: Jayna Vanessa WPtel: [phone] [phone] ACUTE ILLNESS 09/05/2021 Visit Diagnosis Plan: [...] 08/24/2021 Appointment: Lat[facility]el[facility] [phone] [facility] [facility] I[facility] 08/24/2021 Patient Education: Patient Medication Summary Completed 08/24/2021 Patient Education: prednisone- OptimizeRX Coupon [id number] Completed 08/24/2021 Visit Plan: Supportive care. Rest, [...] 07/04/2021 Appointment: Latasha Anand WPtel: [phone] [phone] US ACUTE ILLNESS 07/04/2021 Patient Education: Patient Medication Summary Completed 07/04/2021 Patient Education: Patient Medication Summary Completed 07/04/2021 Appointment: Latasha Anand WPtel: [phone] [phone] US NO SHOW 07/03/2021 Appointment: Latasha Anand WPtel: [phone] [phone] US patients issue resolved so moved to dr's schedule for [facility] hospital [facility] ([place]) CANCELED 03/29/2021 Appointment: Jayna Vanessa WPtel: [phone] [phone] US INJECTION 03/29/2021 Visit Diagnosis Plan: [...] 02/08/2021 Appointment: Kika Latasha WPtel: [phone] [phone] ACUTE ILLNESS 02/08/2021 Patient Education: Patient Medication Summary Completed 02/08/2021 Visit Diagnosis Plan: Contact dermatitis Discussion: T opical TAC and prednisone Notify if persists or worsens ICD-9 : 692.9 ICD-10 : L25.9 01/19/2021 Appointment: Jayna Vanessa WPtel: [phone] [phone] ACUTE ILLNESS 01/19/2021 Patient Education: prednisone- OptimizeRX Coupon [id number] Completed 01/19/2021 Patient Education: triamcinolone acetonide- OptimizeRX Coupon [id number] Completed 01/19/2021 Visit Diagnosis Plan: Hypothyroidism, unspecified Disc ussion: Increase levothyroxine to 150mcg po daily and recheck TSH and free T4 in 2mos ICD-9 : 244.9 ICD-10 : E03.9 01/03/2021 Visit Diagnosis Plan: Essential (primary) hypertension Discussion: Stable ICD-9 : 401.9 ICD-10 : I10 01/03/2021 Visit Diagnosis Plan: Encounter for [facility] adult medical examination without abnormal findings Discussion: Mediterranean diet Combinati on of cardio and weight bearing exercise Had Covid vaccines Lab discussed ICD-9 : V70.9 ICD-10 : Z00.00 01/03/2021 Visit Diagnosis Plan: Chronic obstructive pulmonary di sease, unspecified Discussion: Following with pulmonology ICD-9 : 496 ICD-10 : J44.9 01/03/2021 Appointment: Jayna Vanessa [facility]Ptel[facility] [phone] [phone] Annual Well Visit 01/03/2021 Patient Education: levothyroxine- OptimizeRX Coupon [id number] https://www.[employer]/samplemd/resources/getResource/61/2y352lm6-3tl5-6548-y2 Completed 01/03/2021 Visit Diagnosis Plan: COPD exacerbation Discussion: Sa mple of breztri given. Prednisone 40 mg x 5 days for exacerbation- increased cough, shortness of breath, and phlegm. Promethazine DM cough syrup sent d/t frequent hacking cough that interrupts sleep. F/U for no improvement or any concerns. ICD-9 : 491.21 ICD-10 : J44.1 11/29/2020 Appointment: Latasha Anand WPtel: [phone] [phone] ACUTE ILLNESS 11/29/2020 Patient Education: Patient Medication Summary Completed 11/29/2020 Patient Education: prednisone- OptimizeRX Coupon [id number] Completed 11/29/2020 Patient Education: promethazine-DM- OptimizeRX Coupon [id number] Completed 11/29/2020 Visit Diagnosis Plan: Sinusitis Discussion: Will start doxycycline (pcn allergy). Sinus rinses. Tylenol/nsaids for headache/pain. Return to clinicif not improving/concerns. ICD-9 : 473.9 ICD-10 : J32.9 09/29/2020 Appointment: Latasha Anand WPtel: [phone] [phone] ACUTE ILLNESS 09/29/2020 Patient Education: Patient Medication Summary Completed 09/29/2020 Patient Education: doxycycline hyclate- OptimizeRX Coupon [id number] Completed 09/29/2020 Visit Diagnosis Plan: Other [...] 09/19/2020 Appointment: Latasha Anand WPtel: [phone] [phone] ACUTE ILLNESS 09/19/2020 Patient Education: Patient Medication Summary Completed 09/19/2020 Patient Education: ProAir HFA- OptimizeRX Coupon [id number] Completed 09/19/2020 Visit Diagnosis Plan: Right-sided tinnitus [...] : H93.11 08/10/2020 Appointment: Jayna Vanessa WPtel: [address] [place], [place] [phone] FOLLOW UP 08/10/2020 Patient Education: neomycin-polymyxin B-dexameth- Opti mizeRX Coupon [id number] https://www.[employer]/resources/getResource/61/mi057q94-s83b-1d77-wi Completed 08/10/2020 Visit Diagnosis Plan: Dysfunction of right eustachian tube Discussion: Naylay.ut video visit done Increase zyrtec to BID Increase flonase to BID Add prednisone To office at end of week to assess otoscope exam if persists ICD-9 : 381.81 ICD-10 : H69.81 08/01/2020 Appointment: Jayna Vanessa WPtel: [address] [place], [place] [phone] TELEMEDICINE 08/01/2020 Patient Education: prednisone- OptimizeRX Coupon [phone] https://www.[employer]/resources/getResource/61/op8c34p1-7552-1m2d-95 Completed 08/01/2020 Visit Diagnosis Plan: Pyelonephritis Discussion: Finis maría all abx Push fluids Check lab and repeat UA in 5 days--CBC, CMP, ESR ICD-9 : 590.80 ICD-10 : N12 07/13/2020 Appointment: Jayna Vanessa WPtel: [phone] [phone] Hospital Follow Up 07/13/2020 Visit Diagnosis Plan: Acute gastroenteritis Discussion : Telephone visit completed Clear liquid diet next 24-48hrs Flagyl to cover for colitis/diverticulitis Zofran prn Notify or to ER if worsening ICD-9 : 558.9 ICD-10 : K52.9 07/05/2020 Appointment: Jayna Vanessa WPtel: [phone] [phone] TELEMEDICINE 07/05/2020 Patient Education: ondansetron HCl- OptimizeRX Coupon [id number] https://www.[employer]/resources/getResource/61/f2r82ng8-0a9l-624l-1r Completed 07/05/2020 Visit Diagnosis Plan: Metabolic syndrome Discussion: U pdate CMP, HBa1c ICD-9 : 277.7 ICD-10 : E88.81 06/22/2020 Visit Diagnosis Plan: Mraxu-6-qzpswmoduai deficiency D iscussion: Following with pulmonology ICD-9 [...] : I10 06/22/2020 Appointment: Jayna Vanessa WPtel: [address] [place], [place] [phone] FOLLOW UP 06/22/2020 Visit Diagnosis Plan: Urinary tract infection Discussi on: Macrobid Diflucan Push water Notify if worsens ICD-9 : 599.0 ICD-10 : N39.0 05/17/2020 Appointment: Jayna Vanessa WPtel: [phone] ACUTE ILLNESS 05/17/2020 Patient Education: fluconazole- OptimizeRX Coupon [phone] https://www.[employer]/samplemd/resources/getResource/61/6q4np5gj-l6b0-1t5m-3d Completed 05/17/2020 Visit Diagnosis Plan: Right pulmonary embolus Discussi on: Continue eliquis at 5mg po BID Has appointments pending with pulmonology and hematology Fwup after visits with both of these specialists ICD-9 : 415.19 ICD-10 : I26.99 03/14/2020 Appointment: Jayna Vanessa WPtel: [address] [place], [place] [phone] [facility] 03/14/20 on cell -- home phone had busy signal Hospital Follow Up 03/14/2020 Appointment: Jayna Vanessa WPtel: [address] [place], [place] [phone] I schedule patient by mistake ddo Scheduled [...] : R06.00 03/07/2020 Appointment: Jayna Vanessa WPtel: [address] [place], [place] [phone] ACUTE ILLNESS 03/07/2020 Care Plan: CT THORAX W/DYE LOINC : 96207 -6 Pending 03/07/2020 Appointment: Jayna Vanessa WPtel: [address] [place], [place] [phone] NO SHOW - FORGIVEN 03/02/2020 Visit Diagnosis Plan: Upper respiratory infection Disc ussion: patient's covid test was neg from several weeks ago. proair refilled to take as needed. medrol pack prescribed to cover for allergies since her symptoms began after being in [facility]. however, instructed patient that she needs to be checked again for coronavirus due to severity of her symptoms. patient [place] so informed her to go to [facility] walk in for testing. call ofice with new or worsening symptoms, otherwise push fluids. ICD-9 : 465.9 ICD-10 : J06.9 02/11/2020 Appointment: Genesis Fernández [address] [facility] 02/11/2020 Patient Education: ProAir HFA- OptimizeRX Coupon [id number] Completed 02/11/2020 Patient Education: Medrol (Isaiah)- OptimizeRX Coupon [id number] Completed 02/11/2020 Visit Diagnosis Plan: Hypothyroidism, unspecified [...] I10 12/21/2019 Visit Diagnosis Plan: Encounter for [facility] adult medical examination without abnormal findings Discussion: Mediterranean diet Combinati on of cardio and weight bearing exercise Lab discussed Last colonoscopy 3 years ago ICD-9 : V70.9 ICD-10 : Z00.00 12/21/2019 Appointment: Jayna Vanessa WPtel: [phone] [facility] Annual Well Visit 12/21/2019 Care Plan: Referral Order SNOMED-CT : 30 [id number] Pending 12/21/2019 Visit Diagnosis Plan: Dermatitis Discussion: Doxy.me v ideo visit done Cover with Prednisone taper Use Zyrtec 10mg po q AM BID ICD-9 : 692.9 ICD-10 : L30.9 09/29/2019 Appointment: Janya Vanessa WPtel: [address] [place], [place] [phone] US TELEMEDICINE 09/29/2019 Patient Education: prednisone- OptimizeRX Coupon [phone] https://www.[employer]/resources/getResource/61/65k56q46-9o66-2t21-0l Completed 09/29/2019 Visit Diagnosis Plan: Bone spur [...] : N39.0 09/14/2019 Appointment: Jayna Vanessa WPtel: [address] [place], [place] [phone] US TELEMEDICINE 09/14/2019 Appointment: Jayna Vanessa WPtel: [address] [place], [place] [phone] US LAB 09/11/2019 Appointment: Jayna Vanessa WPtel: [address] [place], [place] [phone] US 09/09/2019 1210--per Ally patient was to only have 1 injection, reculture urine on 09/11/19 (km) CANCELED 09/09/2019 Appointment: Jayna Vanessa WPtel: [address] [place], [place] [phone] US INJECTION 09/08/2019 Appointment: Jayna Vanessa WPtel: [address] [place], [place] [phone] US INJECTION 09/07/2019 Visit Diagnosis Plan: Urinary [...] ICD-10 : R35.0 09/02/2019 Appointment: Genesis Fernández [address] [place] [address] ACUTE ILLNESS 09/02/2019 Visit Diagnosis Plan: Sinusitis Discussion: instructed to start flonase daily and zyrtec daily. if no improvement next week, call clinic and may need further directions. instructed to use saline eye drops as needed to eyes to assist with dryness. ICD-9 : 473.9 ICD-10 : J32.9 07/09/2019 Appointment: Genesis Fernández [address] [place] [address] ACUTE ILLNESS 07/09/2019 Visit Diagnosis Plan: UTI (urinary tract infection) Di scussion: urine culture sent off. will start on macrobid due to symptoms. instructed to push fluids and chemo tomorrow with worsening symptoms. ICD-9 : 599.0 ICD-10 : N39.0 04/15/2019 Appointment: Jayna Vanessa WPtel: [phone] [phone] [place] INJECTION 04/15/2019 Appointment: Genesis Fernández [address] [place], [place] [phone] ACUTE ILLNESS 04/15/2019 Visit Diagnosis Plan: Pain in right leg Discussion: ke nalog/dexa given in office. continue with flexeril prn. PT was ordered for patient due to chronic issues. call office with worsening symptoms and may need imaging. ICD-9 : 729.5 ICD-10 : M79.604 04/07/2019 Appointment: Genesis Fernández [address] [place], [place] [phone] ACUTE ILLNESS 04/07/2019 Visit Diagnosis Plan: Diverticulitis of large intestine without perforation or abscess without bleeding Discussion: Patient will call when she g ets home and verify which antibiotics she has left--needs at least another week on flagyl and thinks she only took 1 week on that ICD-9 : 562.11 ICD-10 : K57.32 03/25/2019 Appointment: Jayna Vanessa WPtel: [address] [place] [phone] FOLLOW UP 03/25/2019 Visit Diagnosis Plan: Cystitis Discussion: Bactrim and culture urine ICD-9 : 595.9 ICD-10 : N30.90 03/18/2019 Visit Diagnosis Plan: Abdominal pain Discussion: Cover with flagyl for colitis [place] diet To ER this weekend if worsening Fwup 1 week ICD-9 : 789.00 ICD-10 : R10.9 03/18/2019 Appointment: Jayna Vanessa WPtel: [phone] [place] [phone] ACUTE ILLNESS 03/18/2019 Visit Diagnosis Plan: Urinary [...] ICD-10 : R10.84 01/26/2019 Appointment: Genesis Fernández [address] [place], [place] [id number] ACUTE ILLNESS 01/26/2019 Appointment: Jayna Vanessa WPtel: [address] [place] [phone] US CANCELED 01/12/2019 Visit Diagnosis Plan: Mild intermittent asthma with (a cute) exacerbation Discussion: Kenalog 40mg IM now Prednisone stating tomorrow Start Doxycycline tonight Continue SVNs with duoneb q4hrs To ER this weekend if worsening Call Saturday on how doing ICD-9 : 466.0 ICD-10 : J45.21 01/08/2019 Appointment: Jayna Vanessa WPtel: [phone] [phone] FOLLOW UP 01/08/2019 Patient Education: prednisone- OptimizeRX Coupon [phone] https://www.[employer] Genetics/resources/getResource/61/71126960-r1nd-1996-76 Completed 01/08/2019 Visit Diagnosis Plan: Mild intermittent asthma with (a cute) exacerbation Discussion: Solumedrol 125mg IM SVN with duoneb given Continue albuterol q4hrs CXR now Recheck tomorrow ICD-9 : 466.0 ICD-10 : J45.21 01/06/2019 Appointment: Jayna Vanessa WPtel: [address] [phone] ACUTE ILLNESS 01/06/2019 Visit Diagnosis Plan: Encounter for screening for roel gnant neoplasm of colon Discussion: positive for ob. will order ct abd/pelvis due to other findings and discussed with patient that may need to proceed with updated colonoscopy. patient verbalized understanding. ICD-9 : V76.51 ICD-10 : Z12.11 12/11/2018 Visit Diagnosis Plan: Encounter for [facility] adult medical examination with abnormal findings Discussion: [...] : 616.10 ICD-10 : N76.0 12/11/2018 Appointment: Genesis Fern[facility]dez [address] [facility] Annual Well Visit 12/11/2018 Care Plan: RML ASSAY THYROID STIM HORMONE Pending 12/04/2018 Care Plan: RML ASSAY OF FREE THYROXINE Pe nding 12/04/2018 Care Plan: RML A1C HPLC LOINC : 55862-7 Pending 12/04/2018 Care Plan: RML LIPID PANEL LOINC : 99296 -1 Pending 12/04/2018 Care Plan: RML COMPREHEN METABOLIC PANEL LOINC : 29745-2 Pending 12/04/2018 Care Plan: QUEST CBC (INCLUDES DIFF/PLT) LOINC : 33917-5 Pending 12/04/2018 Visit Diagnosis Plan: Benign paroxysmal vertigo, bilat eral Discussion: Meclizine Vestibular Exercises To ER if worsens or develops neurological symptoms or will need CT scan if persists/worsens ICD-9 : 386.11 ICD-10 : H81.13 10/30/2018 Appointment: Jayna Vanessa WPtel: [address] [place], [place] [phone] ACUTE ILLNESS 10/30/2018 Patient Education: VESTIBULAR EXCERCISES Completed 10/30/2018 Patient Education: meclizine- OptimizeRX Coupon [id number] Completed 10/30/2018 Appointment: Jayna Vanessa WPtel: [phone] US canceled due to huband going [...] ICD-10 : R05 10/07/2018 Appointment: Stacey Feng [facility] [address] ACUTE ILLNESS 10/07/2018 Patient Education: doxycycline hyclate- OptimizeRX Hansa jerald [id number] https://www.[employer]/samplemd/resources/getResource/61/w079nyc5-g552-090h-53 Completed 10/07/2018 Care Plan: RML ASSAY OF [...] : M85.80 06/23/2018 Appointment: Jayna Vanessa WPtel: [address] [place], [place] [phone] FOLLOW UP 06/23/2018 Appointment: Jayna Vanessa WPtel: [address] [place], [place] [phone] ER Follow UP 01/27/2018 Visit Diagnosis Plan: Hypothyroidism, unspecified Disc ussion: Lab discussed Increase Levothyroxine to 175mcg daily then recheck level in 6 weeks Follow Up: 6 weeks ICD-9 : 244.9 ICD-10 : E03.9 01/16/2018 Visit Diagnosis Plan: Mixed hyperlipidemia Discussion: Defers statin meds ICD-9 : 272.4 ICD-10 : E78.2 01/16/2018 Appointment: Jayna Vanessa WPtel: [address] [place] [phone] FOLLOW UP 01/16/2018 Patient Education: Patient Medication Summary Completed 01/16/2018 Patient Education: Patient Medication Summary Completed 01/15/2018 Care Plan: RML COMPREHEN METABOLIC PANEL LOINC : 13412-4 Pending 01/15/2018 Care Plan: RML ASSAY THYROID STIM HORMONE Pending 01/15/2018 Care Plan: RML ASSAY OF FREE THYROXINE Pe nding 01/15/2018 Care Plan: RML LIPID PANEL LOINC : 93442 -1 Pending 01/15/2018 Care Plan: CBC Pending 01/15/2018 Care Plan: RML A1C HPLC LOINC : 21577-5 Pending 01/15/2018 Appointment: Jayna Vanessa WPtel: [address] [place], [place] [address] US CANCELED 12/26/2017 Appointment: Jayna Vanessa WPtel: [address] [place] [phone] US CANCELED 10/28/2017 Visit Diagnosis Plan: Cervicalgia Discussion: xray ord ered of cervical spine and right shoulder. 40 mg kenalog/15 mg toradol prescribed to assist with pain. medrol dose pack prescribed to start tomorrow. instructed patient that if she d evelops worsening pain or no improvement, call or rtc. ICD-9 : 723.1 ICD-10 : M54.2 10/16/2017 Appointment: Genesis Fernández [address] [place] [address] ACUTE ILLNESS 10/16/2017 Patient Education: Patient Medication Summary Completed 10/16/2017 Care Plan: X-RAY EXAM NECK SPINE 4/5VWS cervical LOINC : 33489-1 Pending 10/16/2017 Visit Diagnosis Plan: Headache Discussion: Stat CT of head Dilated eye exam ICD-9 : 784.0 ICD-10 : R51 09/12/2017 Visit Diagnosis Plan: Dizziness and giddiness Discussi on: Check CBC,TSH, Free T4 now ICD-9 : 780.4 ICD-10 : R42 09/12/2017 Appointment: Jayna Vanessa WPtel: [address] [place], [place] [address] ACUTE ILLNESS 09/12/2017 Patient Education: Patient Medication Summary Completed 09/12/2017 Care Plan: CT HEAD/BRAIN W/O DYE LOINC : 62633-2 Pending 09/12/2017 Visit Diagnosis Plan: Cough Discussion: discussed cxra y and sputum results with patient and how they are negative for bacteria. patient restarted on her PPI to cover possiblity of GERD causing cough. instructed patient to contact her chief service dispatcher in [place] for them to evaluate. rtc with any new or worsening symptoms but continue with inhaler and nebulizer treatments as needed. ICD-9 : 786.2 ICD-10 : R05 08/20/2017 Appointment: Genesis Fernández [address] [place] [address] FOLLOW UP 08/20/2017 Patient Education: Patient Medication Summary Completed 08/20/2017 Visit Diagnosis Plan: COUGH Discussion: Check stat CXR Check Sputum culture ICD-9 : 786.2 ICD-10 : R05 08/13/2017 Appointment: Jayna Vanessa WPtel: [address] [place], [place] [address] ACUTE ILLNESS 08/13/2017 Patient Education: Patient Medication [...] Rest, Fluids... 07/29/2017 Appointment: Jayna Vanessa WPtel: [facility] [place] [phone] ACUTE ILLNESS 07/29/2017 Patient Education: Patient Medication [...] : J09.X2 07/25/2017 Appointment: Genesis Fernández [address] ACUTE ILLNESS 07/25/2017 Patient Education: Patient [...] : M25.50 06/10/2017 Appointment: Jayna Vanessa WPtel: [address] [place], [place] [phone] ACUTE ILLNESS 06/10/2017 Patient Education: Patient Medication Summary Completed 06/10/2017 Appointment: Jayna Vanessa WPtel: [address] [place], [place] [phone] Does not need appointment CANCELED 2016 Appointment: Jayna Vanessa WPtel: [address] [place], [place] [phone] [place] CANCELED 05/30/2017 Visit Diagnosis Plan: Acute bronchitis, unspecified Di scussion: prednisone, zpack and tessalon perles prescribed to assist with symptoms. call or RTC if no improvement. humidifier at night. hydrate well and rest. discussed side effects from prednisone including increased blood sugars and instructed to monitor. ICD-9 : 490 ICD-10 : J20.9 05/28/2017 Appointment: Genesis Fernández 504 [facility] ACUTE ILLNESS 05/28/2017 Patient Education: Patient Medication Summary Completed 05/28/2017 Visit Diagnosis Plan: Type 2 diabetes mellitus without complications Discussion: Continue current meds accuchecks daily ICD-9 : 250.00 ICD-10 : E11.9 04/04/2017 Visit Diagnosis Plan: Encounter for [facility] adult medical examination without abnormal findings Discussion: Flu and Pneumovax given Mamm ogram ordered Lab discussed ICD-9 : V70.9 ICD-10 : Z00.00 04/04/2017 Appointment: Jayna Vanessa WPtel: [address] [phone] Annual Well Visit 04/04/2017 Patient Education: Patient Medication Summary Completed 04/04/2017 Care Plan: MAMMOGRAM SCREENING LOINC : 2 6347-5 Pending 04/04/2017 Patient Education: Patient Medication Summary Completed 03/21/2017 Care Plan: RML COMPREHEN METABOLIC PANEL LOINC : 98998-6 Pending 03/21/2017 Care Plan: RML ASSAY THYROID STIM HORMONE Pending 03/21/2017 Care Plan: RML ASSAY OF FREE THYROXINE Pe nding 03/21/2017 Care Plan: CBC Pending 03/21/2017 Care Plan: RML A1C HPLC LOINC : 68948-3 Pending 03/21/2017 Visit Diagnosis Plan: Mixed hyperlipidemia Discussion: Continue current meds Follow Up: 6 months ICD-9 : 272.4 ICD-10 : E78.2 11/28/2016 Visit Diagnosis Plan: Hypothyroidism, unspecified Disc ussion: Continue current dose ICD-9 : 244.9 ICD-10 : E03.9 11/28/2016 Visit Diagnosis Plan: Pwzzl-6-cbkaiqzwyyr deficiency D iscussion: Continue weekly injections ICD-9 : 273.4 ICD-10 : E88.01 11/28/2016 Visit Diagnosis Plan: Sebaceous cyst Discussion: Emily daniel eanadine Discussed removal ICD-9 : 706.2 ICD-10 : L72.3 11/28/2016 Appointment: Jayna Vanessa WPtel: [address] [phone] 6/6 rang and rang on home phone and mobile confirmed~sl FOLLOW UP 11/28/2016 Patient Education: Patient Medication Summary Completed 11/28/2016 Patient Education: Patient Medication Summary Completed 11/20/2016 Referral: Tom Mcrae WPtel: [address] [address] [id number] [place] Referral Initiated 07/05/2016 Visit Plan: Start with CT abdomen/pelvis Will need EGD and Colonoscopy so will refer to Dr. Deffenbaugh Obtain most recent lab results 06/05/2016 Appointment: Jayna Vanessa WPtel: [phone] [phone] ACUTE ILLNESS 06/05/2016 Patient Education: Patient Medication Summary Completed 06/05/2016 Care Plan: CT PELVIS W/O DYE LOINC : 361 08-9 Pending 06/05/2016 Care Plan: CT ABDOMEN W/O DYE LOINC : 36 103-0 Pending 06/05/2016 Care Plan: Referral Order SNOMED-CT : [phone] Pending 06/05/2016 Appointment: Jayna Vanessa WPtel: [phone] [phone] US INJECTION 05/01/2016 Patient Education: Patient Medication Summary Completed 05/01/2016 Patient Education: Patient Medication Summary Completed 04/26/2016 Care Plan: RML COMPREHEN METABOLIC PANEL LOINC : 89153-7 Pending 04/26/2016 Care Plan: RML ASSAY THYROID STIM HORMONE Pending 04/26/2016 Care Plan: RML ASSAY OF FREE THYROXINE Pe nding 04/26/2016 Care Plan: RML A1C HPLC LOINC : 71483-6 Pending 04/26/2016 Referral: Aditya Stone WPtel: [address] [place] [address] [place], [place] [id number] Arrival time is 10:00 Am~sl Appointment Confirme d 11/25/2015 Visit Plan: Had fasting lab done this AM Continue PT for right shoulder Continue current meds Referral to Dr. Temo Stone for incontinence 11/08/2015 Appointment: Jayna Vanessa WPtel: [phone] [phone] 11/06 confirmed-sp FOLLOW UP 11/08/2015 Patient Education: Patient Medication Summary Completed 11/08/2015 Appointment: Jayna Vanessa WPtel: [phone] [phone] 10/19 rescheduled ~sl RESCHEDULED 10/24/2015 Appointment: Jayna Vanessa WPtel: [phone] [phone] 10/10rang and rang ~sl RESCHEDULED 6 Patient Education: Patient Medication Summary Completed 10/12/2015 Care Plan: RML COMPREHEN METABOLIC PANEL LOINC : 77131-8 Pending 10/12/2015 Care Plan: RML ASSAY THYROID STIM HORMONE Pending 10/12/2015 Care Plan: RML ASSAY OF FREE THYROXINE Pe nding 10/12/2015 Care Plan: RML LIPID PANEL LOINC : 74129 -1 Pending 10/12/2015 Care Plan: CBC Pending 10/12/2015 Care Plan: RML A1C HPLC LOINC : 60763-0 Pending 10/12/2015 Care Plan: VITAMIN D TOTAL (25 HYDROXY) P ending 10/12/2015 Appointment: Jayna Vanessa WPtel: [phone] US CANCELED 09/22/2015 Visit Plan: Lab discussed Change thyroid med back to brand synthroid and recheck thyroid lab in os 07/19/2015 Appointment: Jayna Vanessa WPtel: [phone] [phone] 07/18/15 appt confirmed cn FOLLOW UP 07/19 Patient Education: Patient Medication Summary Completed 07/19/2015 Patient Education: Patient Medication Summary Completed 07/12/2015 Visit Plan: Lab discussed Change synthro id to 150mcg all days but M, W, F will change to 175mcg Check Lab and fwup in os Flu shot given 03/28/2015 Appointment: Jayna Vanessa WPtel: [phone] [phone] 03/25 rang for 1:40 seconds 03/28/ appt confirmed cn FOLLOW UP 03/28/2015 Patient Education: Patient Medication Summary Completed 03/28/2015 Patient Education: Patient Medication Summary Completed 03/21/2015 Visit Plan: Continuue fluoxetine at high er dose Increase synthroid to 150mcg as ordered Decrease propranolol to 20mg po BID Check thyroid lab and fwup in 2mos Prevnar 13 given 02/08/2015 Appointment: Jayna Vanessa WPtel: [address] [place], [place] [phone] [place] [address] FOLLOW UP 02/08/2015 Patient Education: Patient Medication Summary Completed 02/08/2015 Visit Plan: Check CBC, CMP, TSH, Free T4 , uric acid, lactate now Increase fluoxetine to 40mg daily Recheck in 1month Notify if worsening Culture urine 01/11/2015 Appointment: Jayna Vanessa WPtel: [address] [place] [phone] [place] [address] ACUTE ILLNESS 01/11/2015 Patient Education: Patient Medication Summary Completed 01/11/2015 Visit Plan: Lab discussed Accuchecks lucian ly Medrol dose pack Rx for back brace 11/24/2014 Appointment: Jayna Vanessa WPtel: [address] [place], [place] [phone] 6/2 confirmed -mf FOLLOW UP 11/24/2014 Patient Education: Patient Medication Summary Completed 11/24/2014 Appointment: Galina Leos WPtel: [address] [place] [address] ER Follow UP 11/19/2014 Patient Education: Patient Medication Summary Completed 11/19/2014 Appointment: Conchita Capone WPtel: [address] [place] [address] ACUTE ILLNESS 10/27/2014 Patient Education: Patient Medication Summary Completed 10/27/2014 Patient Education: [facility] - Saving AutoInj - 18+ - Dynamic Portal ID Completed 10/27/2014 Appointment: Conchita Capone WPtel: [address] [place] [address] ACUTE ILLNESS 09/23/2014 Patient Education: Patient Medication Summary Completed 09/23/2014 Visit Plan: Lab discussed Continue curre nt meds 07/28/2014 Appointment: [facility]el[phone] 07/27 FOLLOW UP 07/28/2014 Patient Education: Patient Medication Summary Completed 07/28/2014 Patient Education: Patient Medication Summary Completed 07/21/2014 Patient Education: Patient Medication Summary Completed 04/27/2014 Appointment: Jayna Vanessa WPtel: [address] [place], [place] [phone] 03/29 FOLLOW UP 03/30/2014 Patient Education: Patient Medication Summary Completed 03/30/2014 Patient Education: [facility] - Saving AutoInj - 18+ - Dynamic Portal ID Completed 03/30/2014 Visit Plan: Lab discussed DC Vytorin Tri al of Lipitor 80mg q HS Continue Trilipix Check Lipids/CMP/thyroid and HbA1C in 4mos then fwup 11/24/2013 Appointment: Jayna Vanessa WPtel: [address] [place], [place] [phone] FOLLOW UP 11/24/2013 Patient Education: Patient Medication Summary Completed 11/24/2013 Patient Education: [facility] - Saving AutoInj - 18+ - Dynamic Portal ID Completed 11/24/2013 Visit Plan: Lab discussed Daily accuchec ks Cont current meds 08/25/2013 Appointment: Jayna Vanessa WPtel: [address] [place], [place] [phone] 08/24 FOLLOW UP 08/25/2013 Patient Education: Patient Medication Summary Completed 08/25/2013 Appointment: Jayna Vanessa WPtel: [address] [place], [place] [phone] FOLLOW UP 08/05/2013 Visit Plan: Continue Wellbutrin/Fluoxeti ne Fasting lab and fwup in 2mos 06/29/2013 Appointment: Jayna Vanessa WPtel: [address] [place], [place] [phone] 06/26 left [facility] FOLLOW UP 06/29/2013 Patient Education: Patient Medication Summary Completed 06/29/2013 Visit Plan: Increase Wellbutrin to 300mg daily Add fluoxetine 20mg daily 05/26/2013 Appointment: Jayna Vanessa WPtel: [address] [place], [place] [phone] FOLLOW UP 05/26/2013 Patient Education: Patient Medication Summary Completed 05/26/2013 Visit Plan: OK to proceed with planned s ulder surgery next week Continue current meds Check fasting lab--CBC, CMP, TSH, free T4, HbA1C, Lipids, Vit D at end of this week prior to surgery 05/06/2013 Appointment: Jayna Vanessa WPtel: [address] [place], [place] [phone] FOLLOW UP 05/06/2013 Patient Education: Patient Medication Summary Completed 05/06/2013 Appointment: Jayna Vanessa WPtel: [address] [place], [place] [phone] ACUTE ILLNESS 04/23/2013 Patient Education: Patient Medication Summary Completed 04/23/2013 Patient Education: [facility] - Saving AutoInj - 18+ - Dynamic Portal ID Completed 04/23/2013 Visit Plan: Decrease Lasix to 20mg daily Leave potassium at 20meq daily Check Chem 7 in 1wk 03/31/2013 Appointment: Jayna Vanessa WPtel: [address] [place], [place] [phone] FOLLOW UP 03/31/2013 Patient Education: Patient Medication Summary Completed 03/31/2013 Appointment: Conchita Capone WPtel: [address] [place], [place] [phone] ACUTE ILLNESS 03/05/2013 Patient Education: Patient Medication Summary Completed 03/05/2013 Visit Plan: Lab discussed Continue curre nt meds Pt is going to start allergy injections Go for port placement to continue prolastin infusions 02/04/2013 Appointment: Jayna Vanessa WPtel: [address] [place], [place] [phone] ACUTE ILLNESS 02/04/2013 Patient Education: Patient Medication Summary Completed 02/04/2013 Visit Plan: 2-D ECHO discussed See Pulmo nology Pt states cough had went away with allergy meds and then has came back Continue allergy meds and add pepcid BID Discussed allergy testing 11/27/2012 Appointment: Jayna Vanessa WPtel: [address] [place], [place] [phone] FOLLOW UP 11/27/2012 Patient Education: Patient Medication Summary Completed 11/27/2012 Visit Plan: PFTS discussed Proceed with 2-D ECHO and pulmonology evaluation Pt was concerned propranolol could be cause but discussed this is likely not culpri DEANDRE was DCed in 2009, is on PPI, has seen ENT, will restart allergy meds--may need allergy testing 11/11/2012 Appointment: Jayna Vanessa WPtel: [address] [place], [place] [phone] FOLLOW UP 11/11/2012 Patient Education: Patient Medication Summary Completed 11/11/2012 Visit Plan: Hold metformin Check CMP, Li pids, TSH, Free T4, HbA1C Check PFTs 10/20/2012 Appointment: Jayna Vanessa WPtel: [address] [place], [place] [phone] 10/17 left message FOLLOW UP 10/20/2012 Patient Education: Patient Medication Summary Completed 10/20/2012 Appointment: Jayna Vanessa WPtel: [address] [place], [place] [phone] 10/13 FOLLOW UP 10/14/2012 Visit Plan: Discussed fluids and rest. W ill monitor for worsening symptoms/fever. Azithromycin, medrol dose pack and refil on cough syrup. Pt. will notify if symptoms worsen or persist. 09/03/2012 Appointment: Lizzie Kelly WPtel: [address] [place], [place] [phone] ACUTE ILLNESS 09/03/2012 Patient Education: Patient Medication Summary Completed 09/03/2012 Visit Plan: discussed that symptoms star edvin around Lion time. Will begin culturelle BID and monitor for fever or worsening symptoms. Fluid intake important. CBC, CMP, sed rate and stool studies. Order written for Mag lab. 07/23/2012 Appointment: Lizzie Kelly WPtel: [address] [place], [place] [phone] ACUTE ILLNESS 07/23/2012 Patient Education: Patient Medication Summary Completed 07/23/2012 Visit Plan: Increase Metformin to 1000mg po BID Accuchecks daily Continue rest of meds at current dose and low-fat, low-sugar diet with increased exercise Check fasting lab in 4mos Restart Nexium 05/20/2012 Appointment: Jayna Vanessa WPtel: [address] [place], [place] [phone] patient had bad night so missed 05/06 appt...left voicemail 05/19 FOLLOW UP 05/20/2012 Patient Education: Patient Medication Summary Completed 05/20/2012 Appointment: Jayna Vanessa WPtel: [address] [place], [place] [phone] patient had bad night so missed 05/06 appt time. FOLLOW UP 05/06/2012 Appointment: Galina Leos WPtel: [address] [place], [place] [phone] ACUTE ILLNESS 04/04/2012 Patient Education: Patient Medication Summary Completed 04/04/2012 Visit Plan: Cryotherapy as above 02/20/2012 Appointment: Jayna Vanessa WPtel: [address] [place], [place] [phone] 02/18 OFFICE SURGERY 02/20/2012 Patient Education: Patient Medication Summary Completed 02/20/2012 Visit Plan: Increase Metfromin to 1000mg daily Continue all other current meds 01/02/2012 Appointment: Jayna Vanessa WPtel: [address] [place], [place] [phone] FOLLOW UP 01/02/2012 Patient Education: Patient Medication Summary Completed 01/02/2012 Appointment: Lizzie Kelly WPtel: [address] [place], [place] [phone] ACUTE ILLNESS 09/04/2011 Patient Education: Patient Medication Summary Completed 09/04/2011 Visit Plan: Finish Keflex Proceed with c olonoscopy Increase aspirin to 325mg daily for next 2wks Add Vimovo 20/500mg po Daily 08/14/2011 Appointment: Jayna Vanessa WPtel: [address] [place], [place] [phone] [facility] Follow Up 08/14/2011 Patient Education: Patient Medication Summary Completed 08/14/2011 Appointment: Lizzie Kelly WPtel: [address] [place] [address] ACUTE ILLNESS 07/31/2011 Patient Education: Patient Medication Summary Completed 07/31/2011 Visit Plan: Doxy and steroids. Codeine/g uiaf cough syrup. Pt. will monitor for worsening symptoms and notify if fever occurs. Encouraged rest and fluids. 07/25/2011 Appointment: Lizzie Kelly WPtel: [address] [place], [place] [phone] ACUTE ILLNESS 07/25/2011 Patient Education: Patient Medication Summary Completed 07/25/2011 Visit Plan: Check full lab in 3mos Radha nue with all current meds Continue PT for knee 07/12/2011 Appointment: Jayna Vanessa WPtel: [address] [place], [place] [phone] FOLLOW UP 07/12/2011 Patient Education: Patient Medication Summary Completed 07/12/2011 Visit Plan: Continue symbicort for 2 mor e weeks 05/09/2011 Appointment: Jayna Vanessa WPtel: [address] [place], [place] [phone] FOLLOW UP 05/09/2011 Patient Education: Patient Medication Summary Completed 05/09/2011 Appointment: Jayna Vanessa WPtel: [address] [place], [place] [phone] ER Follow UP 05/02/2011 Patient Education: Patient Medication Summary Completed 05/02/2011 Visit Plan: Pt. has recently finished ro und of Cefdinir with no improvement. Chest x-ray, CBC, CMP and mycoplasma order given to pt. Pt. will start Doxycycline. 04/25/2011 Appointment: Lizzie Kelly WPtel: [address] [place], [place] [phone] FOLLOW UP 04/25/2011 Patient Education: Patient Medication Summary Completed 04/25/2011 Appointment: Lizzie Kelly WPtel: [address] [place], [place] [id number] ACUTE ILLNESS 04/04/2011 Patient Education: Patient Medication Summary Completed 04/04/2011 Appointment: Lizzie Kelly WPtel: [address] [place], [place] [address] ACUTE ILLNESS 04/03/2011 Visit Plan: Decrease Synthroid to 150mcg daily Repeat TSH and Free T4 in 2mos Knee injection as above 03/01/2011 Appointment: Jayna Vanessa WPtel: [address] [place], [place] [phone] 03/01/2011 Patient Education: Patient Medication Summary Completed 03/01/2011 Visit Plan: Increase Synthroid to 175mcg po daily Check TSH, Free T4 in 8wks Injection given to knee as above Continue Pt 01/04/2011 Appointment: Jayna Vanessa WPtel: [address] [place], [place] [phone] FOLLOW UP 01/04/2011 Patient Education: Patient Medication Summary Completed 01/04/2011 Visit Plan: Septra DS, Mupirocin topical . Pt. will observe wound and report worsening symptoms. 12/07/2010 Appointment: Lizzie Kelly WPtel: [address] [place], [place] [phone] ACUTE ILLNESS 12/07/2010 Patient Education: Patient Medication Summary Completed 12/07/2010 Visit Plan: Increase Synthroid to 150mcg po daily Add Metformin Diet and exercise discussed at length again Repeat thyroid US Add Vit D level Will see if polydipsia improves with metformin 10/09/2010 Appointment: Jayna Vanessa WPtel: [address] [place], [place] [phone] FOLLOW UP 10/09/2010 Patient Education: Patient Medication Summary Completed 10/09/2010 Visit Plan: Increase Synthroid to 125mcg daily Decrease Vit D 50,000 u three times a week Discussed HRT Proceed with sleep study Fwup pending sleep study results 08/07/2010 Appointment: Jayna Vanessa WPtel: [address] [place], [place] [phone] FOLLOW UP 08/07/2010 Patient Education: Patient Medication Summary Completed 08/07/2010 Visit Plan: Decrease Synthroid to 100mcg QD Check thyroid lab in 2mos Check estradiol levels in 2mos--discussed HRT Increase Vit D 50,000u to 1 daily M-F 06/06/2010 Appointment: Jayna Vanessa WPtel: [address] [place], [place] [phone] ACUTE ILLNESS 06/06/2010 Patient Education: Patient Medication Summary Completed 06/06/2010 Visit Plan: Injections to knees as above 04/12/2010 Appointment: Jayna Vanessa WPtel: [address] [place], [place] [phone] OFFICE SURGERY 04/12/2010 Patient Education: Patient Medication Summary Completed 04/12/2010 Visit Plan: Decrease Synthroid to 175mcg QD Check lab in 2mos Change daily Vit D to weekly 03/20/2010 Appointment: Jayna Vanessa WPtel: [address] [place], [place] [phone] ESTABLISHED PATIENT 03/20/2010 Patient Education: Patient Medication Summary Completed 03/20/2010 Appointment: Jayna Vanessa WPtel: [address] [place], [place] [phone] ACUTE ILLNESS 01/30/2010 Patient Education: Patient Medication Summary Completed 01/30/2010 Appointment: Jayna Vanessa WPtel: [phone] [phone] ACUTE ILLNESS 01/09/2010 Patient Education: Patient Medication Summary Completed 01/09/2010 Appointment: Jayna Vanessa WPtel: [phone] [phone] BP CHECK 11/07/2009 Patient Education: Patient Medication Summary Completed 11/07/2009 Appointment: Jayna Vanessa WPtel: [phone] [phone] OFFICE SURGERY 10/26/2009 Patient Education: Patient Medication Summary Completed 10/26/2009 Appointment: Lizzie Kelly WPtel: [address] [place], [place] [phone] OFFICE SURGERY 10/17/2009 Patient Education: Patient Medication [...] up appnt. 10/04/2009 Appointment: Lizzie Kelly WPtel: [address] [place], [place] [phone] ACUTE ILLNESS 10/04/2009 Patient Education: Patient Medication Summary Completed 10/04/2009 Visit Plan: E-scribed refils. Pt. report s that she normally has lab work drawn and orders are given (faxed) to her normal lab facility by [facility]. Pt. states her migraine headaches have abated for now and that she is going to see her migraine doctor in [place] in the near future(Dr Cook) Pt will seek re-eval as necessary for acute issues. 09/21/2009 Appointment: Lizzie Kelly WPtel: [address] [place] [id number] [place] CHECK UP 09/21/2009 Patient Education: Patient Medication Summary Completed 09/21/2009 [facility]ment: [facility]el[id number] [facility] CHECK UP 09/20/2009 Appointment: Lizzie Kelly WPtel[facility] [facility] [id number] [place] FOLLOW UP 09/19/2009 Referral: Alf Lang WPtel: [facility] Meliza Yang [id number] [place] Referral Appointment Requested Referral: Singh Pina WPtel: [address] [facility] [place] Referral Appointment Requested Referral: Aditya Stone WPtel: [address] [facility] [address] [id number] [place] Referral Appointment Requested Instructions Comment Date [...] going to see her migraine doctor in [place] in the near future(Dr Cook) Pt will [...]
--- OUTSIDE RECORDS SUMMARY | 2022-09-10 16:59 | XMS REPORT | CCD ---
Author Author Marcella Vanessa D.O. 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 Name Role Phone Jayna Vanessa D.O., PP Unavailable CCM Unavailable Summary Purpose Interface Exchange Insurance Providers Payer name Policy type / Coverage type Covered republican ID Effective Begin Date Effective End Date AET[employer] Commercial Insurance [id number] Unknown Commercial Insurance [id number] Unknown Family history Side Diagnosis Age At Onset Heart disease Unknown Diabetes Unknown Sister Diagnosis Age At Onset Diabetes Unknown Brother Diagnosis Age At Onset Diabetes Unknown Mother Diagnosis Age At Onset Heart disease Unknown Father Diagnosis Age At Onset Heart disease Unknown Social History Social History Element Codes Description Effective Dates Tobacco history SNOMED CT: 135707187 Never smoker 04/04/2011 Marital status Unknown 09/21/2009 [...] gastroenteritis ICD-10: K52.9 ICD-9: 558.9 07/05/2020 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 11/28/2016 Active [...] ANXIETY STATE NOS ICD-9: 300.00 03/05/2013 Active 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 02/04/2013 A ctive DYSPNEA [...] Fill Instructions Macrobid 100 mg capsule RxNorm: 196842 Take 1 Capsule(s) Oral t wo times a day 09/05/2022 09/11/2022 Active bupropion HCl XL 300 mg 24 hr tablet, extended release RxNor m: 185756 TAKE 1 Tablet BY MOUTH DAILY IN THE MORNING (replaces 150mg DOSE) 08/29/2022 02/24/2023 Active levothyroxine 150 mcg tablet RxNorm: 872229 TAKE ONE TA BLET BY MOUTH EVERY IN THE MORNING 08/29/2022 02/24/2023 Active ciprofloxacin 250 mg tablet RxNorm: 779093 Take 1 Tablet(s) Ora l Q12H 06/29/2022 07/03/2022 Inactive levothyroxine 150 mcg tablet RxNorm: 795724 Take 1 Tablet(s) Or al QAM 06/03/2022 06/03/2022 Inactive Wellbutrin XL 300 mg 24 hr tablet, extended release RxNorm: 369107 Take 1 Tablet(s) Oral QAM replaces 150mg dose 05/28/2022 05/28/2022 Inactive Xyzal 5 mg tablet RxNorm: 938002 Take 1 Tablet(s) Oral QPM 05/10/2010/06/2022 Active Claritin 10 mg tablet RxNorm: 312907 Take 1 Tablet(s) Oral QAM 04/2409/06/2022 Inactive Flonase Allergy Relief 50 mcg/actuation nasal spray,suspensi on RxNorm: 4913683 Take 1 [place] Nasal two times a day 05/10/2022 06/08/2022 Inactive Wellbutrin XL 150 mg 24 hr tablet, extended release RxNorm: 354802 Take 1 Tablet(s) Oral QAM 05/10/2022 05/27/2022 Inactive sumatriptan 100 mg tablet RxNorm: 470022 1 Tablet(s) Or al after onset of migraine; may repeat after 2 hours if headache returns, not to exceed 200mg in 24hrs replaces rizatriptan 04/19/2022 04/19/2022 Inactive sumatriptan 100 mg tablet RxNorm: 175168 1 Tablet(s) Or al after onset of migraine; may repeat after 2 hours if headache returns, not to exceed 200mg in 24hrs replaces rizatriptan 04/19/2022 04/19/2022 Inactive propranolol 20 mg tablet RxNorm: 521944 TAKE 1 TABLET BY MOUTH TWICE DAILY 04/18/2022 10/14/2022 Active rizatriptan 10 mg disintegrating tablet RxNorm: 729165 Take 1 Tablet(s) Oral on top of tongue, allow to dissolve then swallow once, may repeat every 2 hrs; max 30 mg/24hrs 04/18/2022 04/18/2022 Inactive prednisone 20 mg tablet RxNorm: 018768 Take 1 Tablet(s) Oral tw o times a day 02/15/2022 02/21/2022 Inactive Nurtec ODT 75 mg disintegrating tablet RxNorm: 6534824 T bria 1 Tablet(s) Oral per 24 hours as needed for migraine 02/09/2022 02/09/2022 Inactive Nurtec ODT 75 mg disintegrating tablet RxNorm: 2509368 T bria 1 Tablet(s) Oral per 24 hours as needed for migraine 02/09/2022 02/09/2022 Inactive fluticasone propionate 50 mcg/actuation nasal spray,suspensi on RxNorm: 6497952 SPRAY ONE SPRAY IN EACH NOSTRIL TWICE DAILY NEEDED 02/05/20222021 Inactive levothyroxine 150 mcg tablet RxNorm: 638616 Take 1 Tablet(s) Or al QAM 02/04/2022 02/04/2022 Inactive albuterol sulfate HFA 90 mcg/actuation aerosol inhaler RxNor m: 8846401 Inhale 2 Puff(s) Oral Q4H as needed 01/05/2022 04/04/2022 Inactive pantoprazole 40 mg tablet,delayed release RxNorm: 654827 Take 1 Tablet(s) Oral QD 01/04/2022 07/02/2022 Inactive propranolol 20 mg tablet RxNorm: 687294 TAKE 1 TABLET BY MOUTH TWICE DAILY 01/04/2022 04/17/2022 Inactive levothyroxine 150 mcg tablet RxNorm: 339337 Take 1 Tablet(s) Or al QAM 12/05/2021 12/05/2021 Inactive metronidazole 500 mg tablet RxNorm: 005416 Take 1 Table t(s) Oral two times a day 11/29/2021 12/05/2021 Inactive Singulair 10 mg tablet RxNorm: 110912 Take 1 Tablet(s) Oral QPM 06/202105/09/2022 Inactive Diflucan 100 mg tablet RxNorm: 183900 Take 1 Tablet(s) Oral QD 06/0 06/202111/28/2021 Inactive pantoprazole 40 mg tablet,delayed release RxNorm: 231304 Take 1 Tablet(s) Oral QD 11/06/2021 11/06/2021 Inactive fluticasone propionate 50 mcg/actuation nasal spray,suspensi on RxNorm: 7340339 SPRAY ONE SPRAY IN EACH NOSTRIL TWICE DAILY NEEDED 11/03/20212021 Inactive scopolamine 1 mg over 3 days transdermal patch RxNorm: 13462 2 Apply 1 Unit Dose Transdermal Q72H behind ear 10/30/2021 02/05/2022 Inactive albuterol sulfate HFA 90 mcg/actuation aerosol inhaler RxNor m: 8581299 Inhale 2 Puff(s) Oral Q4H as needed 10/05/2021 11/24/2021 Inactive pantoprazole 40 mg tablet,delayed release RxNorm: 442648 Take 1 Tablet(s) Oral QD 10/05/2021 10/05/2021 Inactive meloxicam 7.5 mg tablet RxNorm: 182228 Take 1 Tablet(s) Oral QD for pain 09/05/2021 09/11/2021 Inactive baclofen 10 mg tablet RxNorm: 699153 Take 0.5-1 Tablet( s) Oral three times per week as needed for muscle spasm 09/05/2021 02/05/2022 Inactive prednisone 20 mg tablet RxNorm: 133412 Take 1 Tablet(s) Oral QD 08/202108/28/2021 Inactive pantoprazole 40 mg tablet,delayed release RxNorm: 652843 Take 1 Tablet(s) Oral QD 07/07/2021 09/04/2021 Inactive fluticasone propionate 50 mcg/actuation nasal spray,suspensi on RxNorm: 2939949 Take 1 [place] Nasal two times a day in each nostrilas needed 07/04/2021 10/01/2021 Inactive Decadron 6 mg tablet RxNorm: 166887 Take 1 Tablet(s) Oral QD 202107/08/2021 Inactive albuterol sulfate HFA 90 mcg/actuation aerosol inhaler RxNor m: 5826115 Inhale 2 Puff(s) Oral Q4H as needed 06/08/2021 09/05/2021 Inactive propranolol 20 mg tablet RxNorm: 892833 TAKE 1 TABLET BY MOUTH TWICE DAILY 06/08/2021 06/08/2021 Inactive pantoprazole 40 mg tablet,delayed release RxNorm: 723034 Take 1 Tablet(s) Oral QD 04/09/2021 06/07/2021 Inactive ProAir HFA 90 mcg/actuation aerosol inhaler RxNorm: 156685 2 Puff(s) Inhalation Q4H as needed 03/13/2021 03/13/2021 Inactive citalopram 10 mg tablet RxNorm: 802077 1 Tablet(s) Oral two antonio es a day 03/13/2021 02/05/2022 Inactive levothyroxine 150 mcg tablet RxNorm: 260153 TAKE 1 Tabl et BY MOUTH EVERY MORNING (REPLACES 137 MCG DOSE) 03/09/2021 03/09/2021 Inactive pantoprazole 40 mg tablet,delayed release RxNorm: 207550 Take 1 Tablet(s) Oral QD 02/08/2021 04/08/2021 Inactive triamcinolone acetonide 0.1 % topical cream RxNorm: 8746508 Take Application Topical two times a day to arm rash 01/19/2021 01/19/2021 Inactive prednisone 20 mg tablet RxNorm: 560007 Take 1 Tablet(s) Oral QD 01/23/2021 Inactive levothyroxine 150 mcg tablet RxNorm: 648322 Take 1 Tabl et(s) Oral QAM replaces 137mcg dose 01/03/2021 01/03/2021 Inactive prednisone 20 mg tablet RxNorm: 558624 Take 2 Tablet(s) Oral QD 01/202112/03/2020 Inactive promethazine-DM 6.25 mg-15 mg/5 mL oral syrup RxNorm: 244681 Take 5 Milliliter(s) Oral Every 6 hours as needed, not to exceed 30 mL in 24 hours 11/29/2020 12/03/2020 Inactive doxycycline hyclate 100 mg capsule RxNorm: 3429270 1 Cap kimi(s) Oral two times a day 09/29/2020 10/05/2020 Inactive Lalita-D 12 Hour 60 mg-120 mg tablet,extended release RxNor m: 687294 1 Tablet(s) Oral QD 09/19/2020 10/03/2020 Inactive ProAir HFA 90 mcg/actuation aerosol inhaler RxNorm: 269995 2 Inhalation Q4H as needed 09/19/2020 09/19/2020 Inactive propranolol 20 mg tablet RxNorm: 175791 TAKE 1 TABLET BY MOUTH TWICE DAILY 09/15/2020 09/15/2020 Inactive pantoprazole 40 mg tablet,delayed release RxNorm: 577497 1 Tabl et(s) Oral QD 09/09/2020 09/08/2020 Inactive pantoprazole 40 mg tablet,delayed release RxNorm: 868756 1 Tabl et(s) Oral QD 09/09/2020 11/07/2020 Inactive propranolol 20 mg tablet RxNorm: 628719 TAKE 1 TABLET BY MOUTH TWICE DAILY 08/24/2020 09/09/2020 Inactive levothyroxine 137 mcg tablet RxNorm: 971812 1 Tablet(s) Oral QD 08/202001/02/2021 Inactive gqmjtdby-gbvaaakml-cyydusuk 3.5 mg/mL-10,000 unit/mL-0 .1% eye drops RxNorm: 895145 4 Drop(s) Otic three times a day 08/10/2020 02/05/2022 Inactive prednisone 20 mg tablet RxNorm: 050779 1 Tablet(s) Oral two antonio es a day 08/01/2020 08/08/2020 Inactive pantoprazole 40 mg tablet,delayed release RxNorm: 995318 1 Tabl et(s) Oral QD 07/13/2020 09/08/2020 Inactive ondansetron HCl 4 mg tablet RxNorm: 123416 1 Tablet(s) Oral Q4H as needed for nausea 07/13/2020 05/09/2022 Inactive levothyroxine 137 mcg tablet RxNorm: 327035 1 Tablet(s) Oral QD 08/23/2020 Inactive pantoprazole 40 mg tablet,delayed release RxNorm: 449851 1 Tabl et(s) Oral QD 07/13/2020 07/12/2020 Inactive ondansetron HCl 4 mg tablet RxNorm: 066279 1 Tablet(s) Oral Q4H as needed for nausea 07/05/2020 07/12/2020 Inactive Flagyl 500 mg tablet RxNorm: 337515 1 Tablet(s) Oral three time s a day 07/05/2020 07/12/2020 Inactive Fish Oil 1,000 mg (120 mg-180 mg) capsule RxNorm: 1 Caps ule(s) Oral QD 06/23/2020 09/18/2020 Inactive rosuvastatin 10 mg tablet RxNorm: 633407 1 Tablet(s) Oral MWF 06/2306/22/2020 Inactive rosuvastatin 10 mg tablet RxNorm: 094296 1 Tablet(s) Oral MWF 06/2302/05/2022 Inactive fluconazole 100 mg tablet RxNorm: 805423 1 Tablet(s) Oral QOD 05/1706/21/2020 Inactive Macrobid 100 mg capsule RxNorm: 956343 1 Capsule(s) Oral two ti mes a day 05/17/2020 05/24/2020 Inactive levothyroxine 137 mcg tablet RxNorm: 389593 TAKE 1 TABLET BY [facility] ONCE DAILY 05/16/2020 07/12/2020 Inactive Eliquis 5 mg tablet RxNorm: 9591377 1 Tablet(s) Oral two times a da y 04/25/2020 02/05/2022 Inactive propranolol 20 mg tablet RxNorm: 867227 TAKE 1 TABLET BY MOUTH TWICE DAILY 04/25/2020 08/23/2020 Inactive doxycycline hyclate 100 mg capsule RxNorm: 7151624 1 Cap kimi(s) Oral two times a day 03/24/2020 03/31/2020 Inactive doxycycline hyclate 100 mg capsule RxNorm: 1161460 1 Cap kimi(s) Oral two times a day 03/24/2020 03/23/2020 Inactive propranolol 20 mg tablet RxNorm: 773779 TAKE 1 TABLET BY MOUTH TWICE DAILY 03/15/2020 04/13/2020 Inactive Eliquis 5 mg tablet RxNorm: 2892742 1 Tablet(s) Oral two times a da y 03/14/2020 04/24/2020 Inactive Eliquis 5 mg tablet RxNorm: 6293730 1 Tablet(s) Oral two times a da y 03/14/2020 03/13/2020 Inactive levofloxacin 500 mg tablet RxNorm: 761778 1 Tablet(s) Oral QD 02/1802/26/2020 Inactive levofloxacin 500 mg tablet RxNorm: 986757 1 Tablet(s) Oral QD 02/1802/18/2020 Inactive Tessalon Perles 100 mg capsule RxNorm: 410272 1 Capsule (s) Oral three times a day as needed 02/16/2020 02/25/2020 Inactive levothyroxine 137 mcg tablet RxNorm: 420583 TAKE 1 TABLET BY [facility] ONCE DAILY 02/15/2020 03/15/2020 Inactive ProAir HFA 90 mcg/actuation aerosol inhaler RxNorm: 935094 2 Inhalation Q4H as needed 02/11/2020 09/18/2020 Inactive Medrol (Isaiah) 4 mg tablets in a dose pack RxNorm: 838969 Tablet( s) Oral 02/11/2020 02/11/2020 Inactive levothyroxine 137 mcg tablet RxNorm: 535659 TAKE 1 TABLET BY [facility] ONCE DAILY 12/16/2019 01/14/2020 Inactive propranolol 20 mg tablet RxNorm: 498967 TAKE 1 TABLET BY MOUTH TWICE DAILY 12/16/2019 01/14/2020 Inactive levothyroxine 137 mcg tablet RxNorm: 009666 TAKE 1 TABLET BY [facility] ONCE DAILY 10/16/2019 11/14/2019 Inactive prednisone 20 mg tablet RxNorm: 303221 1 Tablet(s) Oral two times a day for rash/hives 09/29/2019 10/04/2019 Inactive Probiotic 10 billion cell capsule RxNorm: 2593166 1 Capsule(s) O ral QD 09/14/2019 02/10/2020 Inactive Bactrim DS 800 mg-160 mg tablet RxNorm: 399376 1 Tablet(s) Oral two times a day 09/14/2019 09/13/2019 Inactive citalopram 10 mg tablet RxNorm: 774717 1 Tablet(s) Oral two antonio es a day 09/14/2019 12/20/2019 Inactive hydroxychloroquine 200 mg tablet RxNorm: 364263 1 Table t(s) Oral two times a day 09/14/2019 02/05/2022 Inactive Bactrim DS 800 mg-160 mg tablet RxNorm: 987305 1 Tablet(s) Oral two times a day 09/14/2019 09/24/2019 Inactive Cipro 250 mg tablet RxNorm: 897636 1 Tablet(s) Oral two times a day 09/02/2019 09/08/2019 Inactive levothyroxine 137 mcg tablet RxNorm: 085037 1 Tablet(s) Oral QD 10/10/2019 Inactive levothyroxine 137 mcg tablet RxNorm: 940607 1 Tablet(s) Oral QD 08/11/2019 Inactive propranolol 20 mg tablet RxNorm: 582341 TAKE 1 TABLET BY MOUTH TWICE DAILY 06/18/2019 12/14/2019 Inactive 06/18/2019 11:09:41 AM Cipro 250 mg tablet RxNorm: 712999 1 Tablet(s) Oral two times a day 04/17/2019 04/16/2019 Inactive Cipro 250 mg tablet RxNorm: 923020 1 Tablet(s) Oral two times a day 04/17/2019 04/24/2019 Inactive Macrobid 100 mg capsule RxNorm: 006585 1 Capsule(s) Oral two ti mes a day 04/15/2019 04/16/2019 Inactive metronidazole 500 mg tablet RxNorm: 700722 1 Tablet(s) Oral thr ee times a day 03/18/2019 03/28/2019 Inactive Bactrim DS 800 mg-160 mg tablet RxNorm: 430339 1 Tablet(s) Oral two times a day 03/18/2019 03/18/2019 Inactive Cipro 250 mg tablet RxNorm: 348706 1 Tablet(s) PO BID 01/26/201901/22 Inactive Flagyl 500 mg tablet RxNorm: 855531 1 Tablet(s) PO TID 01/26/201904/2019 Inactive prednisone 20 mg tablet RxNorm: 121795 1 Tablet(s) PO B ID for 4 days then 1 po daily for 4 days 01/08/2019 03/17/2019 Inactive doxycycline hyclate 100 mg capsule RxNorm: 7739899 1 Capsule(s) PO BID 01/08/2019 01/14/2019 Inactive doxycycline hyclate 100 mg capsule RxNorm: 3476989 1 Capsule(s) PO BID 01/08/2019 01/07/2019 Inactive propranolol 20 mg tablet RxNorm: 643128 1 Tablet(s) PO BID 12/24/1906/17/2019 Inactive Bactrim DS 800 mg-160 mg tablet RxNorm: 806880 1 Tablet (s) PO BID repeat urine culture 48 hours after antibiotics completed. 12/15/2018 12/14/2018 In active Bactrim DS 800 mg-160 mg tablet RxNorm: 297870 1 Tablet (s) PO BID repeat urine culture 48 hours after antibiotics completed. 12/15/2018 12/19/2018 In active levothyroxine 137 mcg tablet RxNorm: 781386 1 Tablet(s) PO QD 12/0906/06/2019 Inactive meclizine 25 mg tablet RxNorm: 644680 1 Tablet(s) PO TID for di zziness 10/30/2018 11/08/2018 Inactive doxycycline hyclate 100 mg tablet RxNorm: 7811432 1 Tablet(s) PO BI D 10/07/2018 10/16/2018 Inactive albuterol sulfate HFA 90 mcg/actuation aerosol inhaler RxNor m: 274790 2 Puff(s) INH Q4H as needed 10/07/2018 02/10/2020 Inactive chlorpheniramine 4 mg tablet RxNorm: 2038663 1 Tablet(s) PO QHS for allergies 10/07/2018 03/17/2019 Inactive Tessalon 200 mg capsule RxNorm: 205331 1 Capsule(s) PO TID 10/08/1910/26/2018 Inactive doxycycline hyclate 100 mg tablet RxNorm: 0816202 1 Tablet(s) PO BI D 10/07/2018 10/06/2018 Inactive Tessalon 200 mg capsule RxNorm: 485227 1 Capsule(s) PO TID 10/08/1910/06/2018 Inactive levothyroxine 137 mcg tablet RxNorm: 140208 1 Tablet(s) PO QD 08/0512/02/2018 Inactive propranolol 20 mg tablet RxNorm: 461481 1 Tablet(s) PO BID 06/23/2012/19/2018 Inactive chlorpheniramine 4 mg tablet RxNorm: 7475823 1 Tablet(s) PO QHS for allergies 06/23/2018 08/21/2018 Inactive levothyroxine 137 mcg tablet RxNorm: 812011 1 Tablet(s) PO QD 06/0308/01/2018 Inactive levothyroxine 137 mcg tablet RxNorm: 801860 1 Tablet(s) PO QD 06/0306/02/2018 Inactive Synthroid 150 mcg tablet RxNorm: 880200 1 Tablet(s) PO QD 04/03/2018 06/22/2018 Inactive Synthroid 150 mcg tablet RxNorm: 542549 1 Tablet(s) PO QD 04/03/2018 04/02/2018 Inactive propranolol 20 mg tablet RxNorm: 527273 1 Tablet(s) PO BID 03/17/20 18 06/14/2018 Inactive propranolol 20 mg tablet RxNorm: 951225 1 Tablet(s) PO BID 03/17/20 18 06/21/2020 Inactive Lancets,Ultra Thin RxNorm: Miscellaneous Use to test blood sugar daily and as needed (Dx: E11.65) 02/28/2018 05/09/2022 Inactive Contour Test Strips RxNorm: Miscellaneous Test b lood sugar daily and as needed (Dx: E11.65) 02/28/2018 05/09/2022 Inactive Contour Meter RxNorm: 1 Miscellaneous DX: E11.65 02/27/20182021 Inactive DX: E11.65 Synthroid 175 mcg tablet RxNorm: 469042 1 Tablet(s) PO QD 01/28/2018 04/02/2018 Inactive Synthroid 175 mcg tablet RxNorm: 754766 1 Tablet(s) PO QD 01/16/2018 04/02/2018 Inactive Medrol (Isaiah) 4 mg tablets in a dose pack RxNorm: 875006 Tablet(s) P O 10/16/2017 01/15/2018 Inactive cyclobenzaprine 7.5 mg tablet RxNorm: 968574 1/2-1 Tablet(s) PO TID as needed 10/16/2017 06/22/2018 Inactive pantoprazole 40 mg tablet,delayed release RxNorm: 687619 1 Tabl et(s) PO QD 08/21/2017 06/22/2018 Inactive Nexium 40 mg capsule,delayed release RxNorm: 651746 1 Capsule(s ) PO QD 08/20/2017 08/20/2017 Inactive doxycycline hyclate 100 mg capsule RxNorm: 0503174 1 Capsule(s) PO BID 08/13/2017 08/12/2017 Inactive doxycycline hyclate 100 mg capsule RxNorm: 7192023 1 Capsule(s) PO BID 08/13/2017 08/19/2017 Inactive Tessalon Perles 100 mg capsule RxNorm: 599231 1 Capsule(s) PO T ID as needed 07/29/2017 08/07/2017 Inactive prednisone 20 mg tablet RxNorm: 024226 1 Tablet(s) PO BID 07/25/2017 07/27/2017 Inactive albuterol sulfate HFA 90 mcg/actuation aerosol inhaler RxNor m: 688796 2 Puff(s) INH Q4H as needed 07/25/2017 10/06/2018 Inactive doxycycline hyclate 100 mg capsule RxNorm: 5799971 1 Capsule(s) PO BID 06/10/2017 06/19/2017 Inactive prednisone 20 mg tablet RxNorm: 332043 1 Tablet(s) PO T ID for 2 days then 1 po BID for 2 days then 1 daily for 3 days 06/10/2017 08/12/2017 Inactive fenofibrate micronized 134 mg capsule RxNorm: 467431 TAKE 1 CAP KIMI DAILY 06/03/2017 06/22/2018 Inactive Zithromax Z-Isaiah 250 mg tablet RxNorm: 847681 Tablet(s) PO Take as directed 05/28/2017 06/09/2017 Inactive prednisone 20 mg tablet RxNorm: 283293 2 Tablet(s) PO QD 05/28/2017 1 08/01/2016 Inactive Tessalon Perles 100 mg capsule RxNorm: 949863 1 Capsule(s) PO T ID as needed 05/28/2017 06/09/2017 Inactive Janumet XR 100 mg-1,000 mg tablet,extended release RxNorm: 1 096835 1 Tablet(s) PO QD 02/14/2017 06/22/2018 Inactive fluoxetine 40 mg capsule RxNorm: 596791 1 Capsule(s) PO QD 02/15/20 17 06/22/2018 Inactive Vitamin D2 50,000 unit capsule RxNorm: 299892 1 Capsule (s) PO TAKE 1 CAPSULE BY MOUTH TWICE WEEKLY 02/11/2017 07/10/2017 Inactive Generic For:* DRISDOL 02/03/2015 10:10:59 AM Janumet XR 100 mg-1,000 mg tablet,extended release RxNorm: 1 348103 1 Tablet(s) PO QD 09/24/2016 10/06/2018 Inactive Vitamin D2 50,000 unit capsule RxNorm: 971788 Capsule(s ) TAKE 1 CAPSULE BY MOUTH TWICE WEEKLY 09/11/2016 02/11/2017 Inactive Generic For:*VERN NAVARRETEOL [id number] 02/03/2015 10:10:59 AM Pepcid 20 mg tablet RxNorm: 631854 Tablet(s) PO TAKE 1 TABLET BY MOUTH TWICE DAILY. 06/14/2016 06/13/2016 Inactive fluoxetine 40 mg capsule RxNorm: 343802 1 Capsule(s) PO QD 06/14/20 16 12/10/2016 Inactive loratadine 10 mg tablet RxNorm: 612017 1 Tablet(s) PO QD 1 Tabl et(s) PO BID 06/14/2016 04/03/2017 Inactive [AttnRPh: Saving ryan ly/adjudicate RxGRP:SG20 RxBIN:[id number] RxPCN: ID#:[id number]] Vitamin D2 50,000 unit capsule RxNorm: 977369 Capsule(s ) TAKE 1 CAPSULE BY MOUTH TWICE WEEKLY 06/14/2016 09/10/2016 Inactive Generic For:*VERN NAVARRETEOL [id number] 02/03/2015 10:10:59 AM Synthroid 175 mcg tablet RxNorm: 579233 1 Tablet(s) PO Saturday t hrough Saturday QD 06/05/2016 01/15/2018 Inactive Synthroid 150 mcg tablet RxNorm: 177343 1 Tablet(s) PO Sat and Sun 11/09/2015 06/04/2016 Inactive Synthroid 175 mcg tablet RxNorm: 822341 1 Tablet(s) PO Saturday t hrough Saturday11/09/2015 06/04/2016 Inactive Synthroid 150 mcg tablet RxNorm: 010235 1 Tablet(s) PO Sat and Sun , Sat, Sun 11/09/2015 11/08/2015 Inactive Janumet XR 100 mg-1,000 mg tablet,extended release RxNorm: 1 382346 TAKE 1 TABLET DAILY 09/30/2015 09/24/2016 Inactive azithromycin 500 mg tablet RxNorm: 857943 1 Tablet(s) PO QD 016 07/25/2015 Inactive azithromycin 500 mg tablet RxNorm: 626625 1 Tablet(s) PO QD 016 08/01/2015 Inactive loratadine 10 mg tablet RxNorm: 250669 1 Tablet(s) PO BID 04/06/2015 06/14/2016 Inactive [AttnRPh: Saving apply/adjudicate RxGRP: SG20 RxBIN:[id number] RxPCN: ID#:[id number]] Synthroid 175 mcg tablet RxNorm: 985997 1 Tablet(s) PO M, W, F 10/201411/08/2015 Inactive Synthroid 150 mcg tablet RxNorm: 990156 1 Tablet(s) PO QD Tu, T h, Sat, Sun 03/28/2015 11/08/2015 Inactive propranolol 20 mg tablet RxNorm: 055077 1 Tablet(s) PO BID 02/09/20 15 06/13/2016 Inactive fluoxetine 40 mg capsule RxNorm: 441551 1 Capsule(s) PO QD 02/09/20 15 06/14/2016 Inactive Vitamin D2 50,000 unit capsule RxNorm: 401810 TAKE 1 CA PSULE BY MOUTH TWICE WEEKLY 02/03/2015 06/14/2016 Inactive Generic For:*VERN FREEDMAN [id number] 02/03/2015 10:10:59 AM Lipitor 80 mg tablet RxNorm: 832364 1 Tablet(s) PO QD 01/24/201507/26 Inactive [AttnRPh: Saving apply/adjudicate RxGRP: SG20 RxBIN:[id number] RxPCN: ID#:[id number]] Bactrim DS 800 mg-160 mg tablet RxNorm: 013316 1 Tablet(s) PO BID 0 01/12/2015 01/11/2015 Inactive Synthroid 150 mcg tablet RxNorm: 343234 1 Tablet(s) PO QD 01/12/2015 03/27/2015 Inactive Bactrim DS 800 mg-160 mg tablet RxNorm: 922446 1 Tablet(s) PO BID 0 01/12/2015 01/18/2015 Inactive fluoxetine 40 mg capsule RxNorm: 120042 1 Capsule(s) PO QD 01/12/20 15 02/07/2015 Inactive Synthroid 137 mcg tablet RxNorm: 022123 1 Tablet(s) PO QD 12/08/2014 01/11/2015 Inactive [AttnRPh: Saving apply/adjudicate RxGRP: SG20 RxBIN:[id number] RxPCN: ID#:[id number]] Medrol (Isaiah) 4 mg tablets in a dose pack RxNorm: 725772 6 Tablet(s) PO QD --then as directed 11/24/2014 11/29/2014 Inactive albuterol sulfate HFA 90 mcg/actuation aerosol inhaler RxNor m: 254298 2 Puff(s) INH Q4H as needed 10/27/2014 07/24/2017 Inactive phenazopyridine 100 mg tablet RxNorm: 2253877 1 Tablet(s) PO TID 11/07/2015 Inactive [AttnRPh: Saving apply/adjud icate RxGRP:SG20 RxBIN:[id number] RxPCN: ID#:[id number]] Macrobid 100 mg capsule RxNorm: 264313 1 Capsule(s) PO BID 10/28/19 15 11/02/2014 Inactive [SAVINGS FOR NON-COVERED RUBIO GS -- BIN:[id number], PCN: ASPROD1, Group: XXXXX, ID# [id number], Questions: . THIS IS NOT INSURANCE.] prednisone 20 mg tablet RxNorm: 264329 1 Tablet(s) PO BID 10/27/2014 10/31/2014 Inactive AttnRPh: Saving apply/adjudicate RxGRP:S G20 RxBIN:[id number] RxPCN:HT ID#:[id number]: Saving apply/adjudicate RxGRP:SG20 RxBIN:[id number] RxPCN:HT ID#:[id number] Macrobid 100 mg capsule RxNorm: 484159 1 Capsule(s) PO BID 09/24/19 15 09/29/2014 Inactive [SAVINGS FOR NON-COVERED RUBIO GS -- BIN:602855, PCN: ASPROD1, Group: XXXXX, ID# [id number], Questions: . THIS IS NOT INSURANCE.] phenazopyridine 100 mg tablet RxNorm: 5084232 1 Tablet(s) PO TID 09/24/2014 Inactive [SAVINGS FOR NON-COVERED RUBIO GS -- BIN:128149, PCN: ASPROD1, Group: XXXXX, ID# [id number], Questions: . THIS IS NOT INSURANCE.] propranolol 60 mg tablet RxNorm: 188598 1 Tablet(s) PO QD 07/26/2014 02/07/2015 Inactive [SAVINGS FOR UNINSURED PATIENTS -- BIN:0 45775, PCN: ASPROD1, Group: [id number], ID# [id number], Process claim through [employer], for questions: . THIS IS NOT INSURANCE.] loratadine 10 mg tablet RxNorm: 497747 1 Tablet(s) PO BID 07/12/2014 07/11/2014 Inactive [AttnRPh: Saving apply/adjudicate RxGRP: [id number] RxBIN:[id number] RxPCN: ID#:[id number]] loratadine 10 mg tablet RxNorm: 410109 1 Tablet(s) PO BID 07/12/2014 10/06/2018 Inactive [SAVINGS FOR UNINSURED PATIENTS -- BIN:0 [id number], PCN: ASPROD1, Group: [id number], ID# [id number], Process claim through [employer], for questions: . THIS IS NOT INSURANCE.] Vitamin D2 50,000 unit capsule RxNorm: 605639 1 Capsule (s) PO Take 1 capsule by mouth twice weekly 05/18/2014 02/02/2015 Inactive Pepcid 20 mg tablet RxNorm: 053282 TAKE 1 TABLET BY MOUTH TWICE DAILY. 05/18/2014 06/14/2016 Inactive Generic For:PEPCID 2 0MG 05/18/2014 11:28:51 AM Janumet XR 100 mg-1,000 mg tablet,extended release RxNorm: 1 496874 1 Tablet(s) PO QD 05/12/2014 08/09/2014 Inactive [SAVINGS FOR UNI NSURED PATIENTS -- BIN:[id number], PCN: ASPROD1, Group: [id number], ID# [id number], Process claim through [employer], for questions: . THIS IS NOT INSURANCE.] Voltaren 1 % topical gel RxNorm: 352634 TOP BID 04/21/2014 5 Inactive Apply to affected areas 2-3 times daily as needed. Trilipix 135 mg capsule,delayed release RxNorm: 370595 1 Tablet(s) PO QD 1 Capsule(s) PO QD 04/21/2014 09/17/2014 Inactive may do 90 day f ill if desired Synthroid 137 mcg tablet RxNorm: 576235 1 Tablet(s) PO QD 03/30/2014 09/25/2014 Inactive [AttnRPh: Saving apply/adjudicate RxGRP: SG20 RxBIN:[id number] RxPCN:HT ID#:[id number]] Cipro 250 mg tablet RxNorm: 372968 1 Tablet(s) PO BID 03/30/201403/24 Inactive [SAVINGS FOR UNINSURED PATIENTS -- BIN:0 12551, PCN: ASPROD1, Group: [id number], ID# [id number], Process claim through MedImpact, for questions: . THIS IS NOT INSURANCE.] Janumet XR 100 mg-1,000 mg tablet,extended release RxNorm: 1 055543 2 Tablet(s) PO QD 01/06/2014 01/05/2014 Inactive [SAVINGS FOR UNI NSURED PATIENTS -- BIN:442781, PCN: ASPROD1, Group: [id number], ID# [id number], Process claim through MedImp[employer], for questions: . THIS IS NOT INSURANCE.] Janumet XR 100 mg-1,000 mg tablet,extended release RxNorm: 1 888628 1 Tablet(s) PO QD 01/06/2014 04/05/2014 Inactive [SAVINGS FOR UNI NSURED PATIENTS -- BIN:660986, PCN: ASPROD1, Group: [id number], ID# [id number], Process claim through MedImp[employer], for questions: . THIS IS NOT INSURANCE.] propranolol 60 mg tablet RxNorm: 973681 1 Tablet(s) PO QD 12/28/2013 07/26/2014 Inactive [AttnRPh: Saving apply/adjudicate RxGRP: SG20 RxBIN:[id number] RxPCN:HT ID#:[id number]] Synthroid 150 mcg tablet RxNorm: 233973 1 Tablet(s) PO QD brand onl y 12/28/2013 04/20/2014 Inactive [AttnRPh: Saving apply/adjud icate RxGRP:SG20 RxBIN:[id number] RxPCN:HT ID#:[id number]] Vitamin D2 50,000 unit capsule RxNorm: 287736 1 Capsule (s) PO Take 1 capsule by mouth twice weekly 12/02/2013 05/17/2014 Inactive Lipitor 80 mg tablet RxNorm: 398716 1 Tablet(s) PO QD 11/24/201305/25 Inactive [AttnRPh: Saving apply/adjudicate RxGRP: SG20 RxBIN:[id number] RxPCN:HT ID#:[id number]] loratadine 10 mg tablet RxNorm: 884700 1 Tablet(s) PO BID 11/17/2013 07/12/2014 Inactive fluoxetine 20 mg capsule RxNorm: 233403 1 Capsule(s) PO QAM TAKE ONE CAPSULE BY MOUTH ONCE DAILY IN THE MORNING. 11/04/2013 01/10/2015 Inactive Generic For:PROZAC 20MG Generic For:PROZAC 20MG 06/23/2013 11:55:55 AM [AttnRPh: Saving apply/adjudicate RxGRP:SG20 RxBIN:[id number] RxPCN:HT ID#:[id number]] Vytorin 10 mg-80 mg tablet RxNorm: 5374043 Tablet(s) PO TAKE ONE TABLET BY MOUTH ONCE DAILY IN THE EVENING. 09/30/2013 11/23/2013 Inactive Trilipix 135 mg capsule,delayed release RxNorm: 973491 1 Capsul e(s) PO QD 07/15/2013 04/21/2014 Inactive may do 90 day fill i f desired Voltaren 1 % topical gel RxNorm: 549926 TOP BID 07/15/2013 4 Inactive Apply to affected areas 2-3 times daily as needed. Wellbutrin XL 300 mg 24 hr tablet, extended release RxNorm: 742849 1 Tablet(s) PO QAM 06/29/2013 04/03/2017 Inactive fluoxetine 20 mg capsule RxNorm: 038716 1 Capsule(s) PO QAM TAKE ONE CAPSULE BY MOUTH ONCE DAILY IN THE MORNING. 06/29/2013 11/04/2013 Inactive Generic For:PROZAC 20MG Generic For:PROZAC 20MG 06/23/2013 11:55:55 AM fluoxetine 20 mg capsule RxNorm: 655927 Capsule(s) PO T BRIA ONE CAPSULE BY MOUTH ONCE DAILY IN THE MORNING. 06/23/2013 06/28/2013 Inactive Gener ic For:PROZAC 20MG Generic For:PROZAC 20MG 06/23/2013 11:55:55 AM Synthroid 150 mcg tablet RxNorm: 964974 1 Tablet(s) PO QD brand onl y 06/08/2013 12/04/2013 Inactive Vytorin 10 mg-80 mg tablet RxNorm: 0090628 1 Tablet(s) PO QD 201209/05/2013 Inactive TAKE 1 TABLET BY MOUTH DAILY propranolol 60 mg tablet RxNorm: 335050 1 Tablet(s) PO QD 06/08/2013 12/04/2013 Inactive Pepcid 20 mg tablet RxNorm: 185413 Tablet(s) PO TAKE 1 TABLET BY MOUTH TWICE DAILY. 06/04/2013 11/23/2013 Inactive fluoxetine 20 mg capsule RxNorm: 793614 1 Capsule(s) PO QAM 013 06/22/2013 Inactive Wellbutrin XL 300 mg 24 hr tablet, extended release RxNorm: 188345 1 Tablet(s) PO QAM 05/26/2013 06/28/2013 Inactive Wellbutrin XL 150 mg 24 hr tablet, extended release RxNorm: 781913 1 Tablet(s) PO QD 05/15/2013 05/25/2013 Inactive Wellbutrin XL 150 mg 24 hr tablet, extended release RxNorm: 118836 1 Tablet(s) PO QD 05/15/2013 05/14/2013 Inactive Kombiglyze XR 5 mg-500 mg tablet,extended release RxNorm: 10 26719 1 Tablet(s) PO QD 05/07/2013 05/15/2013 Inactive cefdinir 300 mg capsule RxNorm: 479537 2 Capsule(s) PO QD 04/23/2013 05/02/2013 Inactive AttnRPh: Saving apply/adjudicate RxGRP:S G20 RxBIN:[id number] RxPCN: ID#:[id number] Pepcid 20 mg tablet RxNorm: 429101 Tablet(s) PO TAKE 1 TABLET BY MOUTH TWICE DAILY. 04/17/2013 06/13/2016 Inactive Pepcid 20 mg tablet RxNorm: 044840 1 Tablet(s) PO BID 04/06/201305/24 Inactive Vytorin 10-80 10 mg-80 mg tablet RxNorm: 975499 1 Tablet(s) PO QD 0 02/19/2013 06/08/2013 Inactive TAKE 1 TABLET BY MOUTH DAILY loratadine 10 mg tablet RxNorm: 928904 1 Tablet(s) PO BID 01/23/2013 07/21/2013 Inactive Synthroid 150 mcg tablet RxNorm: 408445 1 Tablet(s) PO QD brand onl y 12/02/2012 06/08/2013 Inactive propranolol 60 mg tablet RxNorm: 752777 1 Tablet(s) PO QD 12/02/2012 06/08/2013 Inactive Trilipix 135 mg capsule,delayed release RxNorm: 087591 1 Capsul e(s) PO QD 12/02/2012 05/30/2013 Inactive may do 90 day fill i f desired Pepcid 20 mg tablet RxNorm: 683036 1 Tablet(s) PO BID 11/27/201203/24 Inactive Effexor XR 150 mg capsule,extended release RxNorm: 474182 1 Cap kimi(s) PO QD 11/24/2012 05/14/2013 Inactive Vytorin 10-80 10 mg-80 mg tablet RxNorm: 004860 1 Tablet(s) PO QD 0 11/24/2012 2013 Inactive TAKE 1 TABLET BY MOUTH DAILY Vytorin 10-80 10 mg-80 mg tablet RxNorm: 369968 1 Tablet(s) PO QD 0 11/21/2012 11/24/2012 Inactive TAKE 1 TABLET BY MOUTH DAILY Effexor XR 150 mg capsule,extended release RxNorm: 526812 1 Cap kimi(s) PO QD 11/21/2012 11/24/2012 Inactive loratadine 10 mg tablet RxNorm: 0251161 1 Tablet(s) PO BID 11/12/19 13 01/23/2013 Inactive Vytorin 10-80 10 mg-80 mg tablet RxNorm: 363324 Tablet( s) PO TAKE 1 TABLET BY MOUTH ONCE DAILY. 10/15/2012 11/21/2012 Inactive Vytorin 10-80 10 mg-80 mg tablet RxNorm: 017105 1 Tablet(s) PO QD 0 10/15/2012 11/20/2012 Inactive TAKE 1 TABLET BY MOUTH DAILY Effexor XR 150 mg capsule,extended release RxNorm: 459657 1 Cap kimi(s) PO QD 10/15/2012 11/20/2012 Inactive Effexor XR 150 mg capsule,extended release RxNorm: 346144 Capsule(s) PO TAKE 1 CAPSULE BY MOUTH ONCE DAILY 10/15/2012 11/21/2012 Inactive azithromycin 250 mg tablet RxNorm: 576262 2 Tablet(s) PO QD 013 09/10/2012 Inactive Culturelle 10 billion cell capsule RxNorm: 464635 1 Cap kimi(s) PO BID for diarrhea maintenance 09/03/2012 10/02/2012 Inactive Medrol (Isaiah) 4 mg tablets in a dose pack RxNorm: 222077 Tablet(s) PO as directed 09/03/2012 07/11/2011 Active as directed Culturelle 10 billion cell capsule RxNorm: 260921 1 Capsule(s) PO BID 07/23/2012 08/21/2012 Inactive Vitamin D2 50,000 unit capsule RxNorm: 298702 Capsule(s ) PO TAKE 1 CAPSULE EVERY DAY SATURDAY THRU Saturday07/09/2012 08/20/2013 Inactive Vitamin D2 50,000 unit capsule RxNorm: 1047090 Capsule(s ) PO TAKE 1 CAPSULE EVERY DAY SATURDAY THRU Saturday07/07/2012 07/08/2012 Inactive Vitamin D2 50,000 unit capsule RxNorm: 5677007 Capsule(s ) PO TAKE 1 CAPSULE EVERY DAY SATURDAY THRU Saturday07/07/2012 07/06/2012 Inactive Vitamin D2 50,000 unit capsule RxNorm: 9784121 Capsule(s ) PO TAKE 1 CAPSULE EVERY DAY SATURDAY THRU Saturday06/27/2012 07/06/2012 Inactive Synthroid 150 mcg tablet RxNorm: 371468 1 Tablet(s) PO QD brand onl y 06/09/2012 12/02/2012 Inactive metformin 1,000 mg tablet RxNorm: 147110 1 Tablet(s) PO BID rep laces 500mg dose 05/20/2012 11/10/2012 Inactive propranolol 60 mg tablet RxNorm: 399379 1 Tablet(s) PO QD 04/23/2012 12/02/2012 Inactive Effexor XR 150 mg capsule,extended release RxNorm: 043485 1 Cap kimi(s) PO QD 04/04/2012 09/30/2012 Inactive Zyrtec 10 mg tablet RxNorm: 9970916 1 Tablet(s) PO QD 04/04/201203/24 Inactive Trilipix 135 mg capsule,delayed release RxNorm: 595789 1 Capsul e(s) PO QD 03/19/2012 12/02/2012 Inactive may do 90 day fill i f desired Vytorin 10-80 10 mg-80 mg tablet RxNorm: 538390 1 Tablet(s) PO QD 0 01/31/2012 07/28/2012 Inactive TAKE 1 TABLET BY MOUTH DAILY Voltaren 1 % topical gel RxNorm: 305345 TOP BID 01/25/2012 4 Inactive Apply to affected areas 2-3 times daily as needed. Synthroid 150 mcg tablet RxNorm: 637672 1 Tablet(s) PO QD brand onl y 01/02/2012 06/09/2012 Inactive metformin ER 1,000 mg 24 hr Tab Ctrl Rel RxNorm: 252625 1 Table t(s) PO QD 01/02/2012 05/19/2012 Inactive metformin ER 500 mg 24 hr Tab RxNorm: 792400 Tablet(s) PO 12/21/2011 01/01/2012 Inactive TAKE 1 TABLET BY MOUTH ONCE DAILY. Voltaren 1 % Topical Gel RxNorm: 980177 TOP BID 11/28/2011 2 Inactive Apply to affected areas 2-3 times daily as needed. propranolol 60 mg tablet RxNorm: 231097 1 Tablet(s) PO QD 10/17/2011 04/23/2012 Inactive Effexor XR 150 mg capsule,extended release RxNorm: 242088 1 Cap kimi(s) PO QD 09/13/2011 04/04/2012 Inactive Medrol (Isaiah) 4 mg tablets in a dose pack RxNorm: 814186 Tablet(s) PO as directed 09/04/2011 07/11/2011 Active as directed doxycycline hyclate 100 mg Tab RxNorm: 3016786 1 Tablet(s) PO BID 0 09/04/2011 09/13/2011 Inactive doxycycline monohydrate 100 mg Tab RxNorm: 0447830 1 Tablet(s) P O BID 07/25/2011 08/03/2011 Inactive prednisone 10 mg Tab RxNorm: 047436 1 Tablet(s) PO TID 07/25/201112/2011 Inactive Synthroid 150 mcg Tab RxNorm: 679568 1 Tablet(s) PO QD brand only 0 07/12/2011 01/02/2012 Inactive Vytorin 10-80 10 mg-80 mg Tab RxNorm: 829159 1 Tablet(s) PO QD 05/2601/31/2012 Inactive TAKE 1 TABLET BY MOUTH DAILY Vitamin D2 50,000 unit capsule RxNorm: 5197692 1 Capsule(s) PO Q D M-F 05/15/2011 06/26/2012 Inactive TAKE 1 CAPSULE BY [facility] DAILY SATURDAY THROUGH FRIDAYS Synthroid 150 mcg Tab RxNorm: 798853 1 Tablet(s) PO QD brand only 1 07/09/2010 07/11/2011 Inactive doxycycline monohydrate 100 mg Tab RxNorm: 0314268 1 Tablet(s) P O BID 04/25/2011 05/04/2011 Inactive Trilipix 135 mg capsule,delayed release RxNorm: 158987 1 Capsul e(s) PO QD 04/23/2011 03/19/2012 Inactive cefdinir 300 mg Cap RxNorm: 518952 1 Capsule(s) PO BID 04/04/2011 Inactive propranolol 60 mg Tab RxNorm: 230774 1 Tablet(s) PO QD 03/26/2011 Inactive Ultram 50 mg Tab RxNorm: 532140 1-2 Tablet(s) PO QID 03/22/201103/21 Active prn pain metformin ER 500 mg 24 hr Tab RxNorm: 225410 1 Tablet(s) PO QD 06/201006/21/2011 Inactive Synthroid 150 mcg Tab RxNorm: 641196 1 Tablet(s) PO QD 02/22/201112/2010 Inactive Vytorin 10-80 10 mg-80 mg Tab RxNorm: 576778 1 Tablet(s) PO QD 01/2303/13/2011 Inactive TAKE 1 TABLET BY MOUTH DAILY Trilipix 135 mg Cap RxNorm: 431535 1 Capsule(s) PO QD 01/10/201103/26 Inactive Effexor XR 150 mg 24 hr Cap RxNorm: 524678 1 Capsule(s) PO QD 01/0908/06/2011 Inactive Vitamin D 50,000 unit Cap RxNorm: 0377017 Capsule(s) PO 12/20/2010 Inactive TAKE 1 CAPSULE BY MOUTH DAILY Fridays Septra DS 800 mg-160 mg Tab RxNorm: 598913 1 Tablet(s) PO BID 12/0712/16/2010 Inactive mupirocin 2 % Ointment RxNorm: 139498 1 Application TOP BID Apply to affected area twice daily 12/07/2010 12/13/2010 Inactive Trilipix 135 mg Cap RxNorm: 758247 1 Capsule(s) PO QD 10/16/201003/26 Inactive Synthroid 150 mcg Tab RxNorm: 985612 1 Tablet(s) PO QD 10/09/201006/2010 Inactive metformin ER 500 mg 24 hr Tab RxNorm: 136418 1 Tablet(s) PO QD 09/2202/22/2011 Inactive Nexium 40 mg Cap RxNorm: 030942 1 Capsule(s) PO QD 10/05/2010 019 Inactive Vytorin 10-80 10 mg-80 mg Tab RxNorm: 422005 1 Tablet(s) PO QD 09/201002/12/2011 Inactive propranolol 60 mg Tab RxNorm: 104815 1 Tablet(s) PO QD 09/18/201008/2010 Inactive Synthroid 125 mcg Tab RxNorm: 013731 1 Tablet(s) PO QD 08/07/2010 Inactive Synthroid 125 mcg Tab RxNorm: 646257 1 Tablet(s) PO QD 08/07/2010 Inactive Voltaren 1 % Topical Gel RxNorm: 226573 TOP BID Apply t o affected areas 2-3 times daily as needed. 08/01/2010 11/28/2011 Inactive Voltaren 1 % Topical Gel RxNorm: 349612 TOP BID Apply t o affected areas 2-3 times daily as needed. 07/04/2010 07/31/2010 Inactive Advair Diskus 250 mcg-50 mcg/dose for Inhalation RxNorm: 135 9859 1 Puff(s) INH Q12H 07/04/2010 07/11/2011 Inactive Effexor XR 150 mg 24 hr Cap RxNorm: 752742 1 Capsule(s) PO QD 06/0801/03/2011 Inactive Synthroid 100 mcg Tab RxNorm: 170980 1 Tablet(s) PO QD 06/06/2010 Inactive Vitamin D 50,000 unit Cap RxNorm: 8807269 1 Capsule(s) PO QD M-F 05/15/2011 Inactive Synthroid 150 mcg Tab RxNorm: 870542 1 Tablet(s) PO 05/25/20102010 Inactive Vytorin 10-80 10 mg-80 mg Tab RxNorm: 632927 1 Tablet(s) PO QD 04/2509/25/2010 Inactive Trilipix 135 mg Cap RxNorm: 577552 1 Capsule(s) PO QD 04/17/201009/23 Inactive propranolol 60 mg Tab RxNorm: 724412 1 Tablet(s) PO QD 01/09/2010 Inactive Advair Diskus 250 mcg-50 mcg/dose for Inhalation RxNorm: 135 9859 1 Puff(s) INH Q12H 12/26/2009 07/04/2010 Inactive Advair Diskus 250 mcg-50 mcg/Dose for Inhalation RxNorm: 135 9859 1 Puff(s) INH Q12H 11/26/2009 12/25/2009 Inactive Synthroid 200 mcg Tab RxNorm: 019725 1 Tablet(s) PO QD 11/24/2009 Inactive Effexor XR 150 mg 24 hr Cap RxNorm: 370751 1 Capsule(s) PO QD 10/2705/24/2010 Inactive Lisinopril 10 mg Tab RxNorm: 985140 1 Tablet(s) PO QD 10/17/200909/23 Inactive Propranolol 60 mg Tab RxNorm: 950715 1 Tablet(s) PO QD 10/17/2009 Inactive Septra DS 160 mg-800 mg Tab RxNorm: 894741 1 Tablet(s) PO BID 10/0410/08/2009 Inactive Mupirocin 2 % Ointment RxNorm: 787174 TOP Q6-8H 10/04/2009 10/10/2009 Inactive Voltaren 1 % Topical Gel RxNorm: 708724 TOP BID Apply t o affected areas 2-3 times daily as needed. 09/21/2009 03/19/2010 Inactive Trilipix 135 mg Cap RxNorm: 417264 1 Capsule(s) PO QD 09/20/200902/23 Inactive Nexium 40 mg Cap RxNorm: 024285 1 Capsule(s) PO QD 09/19/2009 010 Inactive Tylenol Arthritis 650 mg Tab RxNorm: 4999666 2 Tablet(s) PO BID 09/21 Active Vitamin D3 5,000 unit tablet RxNorm: 342511 1 Tablet(s) PO QD 019 Active Synthroid 150 mcg tablet RxNorm: 148352 1 Tablet(s) PO QD 01/12/2015 01/11/2015 Inactive Synthroid 150 mcg tablet RxNorm: 438374 1 Tablet(s) PO Saturday and Saturday01/16/2018 01/15/2018 Inactive Vitamin D 2,000 unit Cap RxNorm: 1 Capsule(s) PO QD 01/30/201002/2010 Inactive Flexeril 5 mg tablet RxNorm: 493096 /2 to 1 Tablet(s) PO TID as needed for muscle spasm 06/10/2017 06/09/2017 Inactive Medrol (Isaiah) 4 mg Tabs in a Dose Pack RxNorm: 263694 Tablet(s) PO 0 09/04/2011 07/11/2011 Inactive as directed fenofibrate micronized 134 mg capsule RxNorm: 018779 1 Capsule( s) PO QD 06/03/2017 06/02/2017 Inactive Vitamin D2 50,000 unit capsule RxNorm: 257691 Capsule(s ) PO Take 1 capsule by mouth twice weekly 12/02/2013 12/01/2013 Inactive prednisone 20 mg tablet RxNorm: 381227 1 Tablet(s) PO BID 03/30/2014 03/29/2014 Inactive AttnRPh: Saving apply/adjudicate RxGRP:S G20 RxBIN:[id number] RxPCN:HT ID#:[id number]: Saving apply/adjudicate RxGRP:SG20 RxBIN:[id number] RxPCN:HT ID#:[id number] Soma 350 mg tablet RxNorm: 499547 1 Tablet(s) PO TID prn spasm 01/2310/08/2010 Inactive Lancets,Ultra Thin RxNorm: Miscellaneous Use to test blood sugar daily and as needed (Dx: E11.65) 02/28/2018 02/27/2018 Inactive pantoprazole 40 mg tablet,delayed release RxNorm: 632070 1 Tabl et(s) PO QD 08/21/2017 08/20/2017 Inactive Janumet XR 100 mg-1,000 mg tablet,extended release RxNorm: 1 982929 2 Tablet(s) PO QD 01/06/2014 01/05/2014 Inactive Contour Meter RxNorm: miscellaneous 02/27/2018 02/26/2018 Inactive Synthroid 200 mcg Tab RxNorm: 752212 1 Tablet(s) PO QD 11/24/200907/2009 Inactive Kombiglyze XR 5 mg-500 mg tablet,extended release RxNorm: 10 01651 1 Tablet(s) PO QD 05/07/2013 05/06/2013 Inactive Zithromax Z-Isaiah 250 mg tablet RxNorm: 871568 Tablet(s) PO as di rected 05/14/2013 05/13/2013 Inactive AttnRPh: Saving appl y/adjudicate RxGRP:SG20 RxBIN:[id number] RxPCN:HT ID#:[id number] Fish Oil 1,000 mg capsule RxNorm: 3 Capsule(s) PO QD 04/04/2017 Inactive Lasix Oral RxNorm: Oral 03/30/2014 03/29/2014 Inactive loratadine 10 mg tablet RxNorm: 764112 1 Tablet(s) PO QD 08/20/2017 0 08/19/2017 Inactive Vitamin D 5,000 unit Tab RxNorm: 1 Tablet(s) PO twice a week 1 08/07/2009 06/05/2010 Inactive permethrin 5 % Topical Cream RxNorm: 465572 TOP Use as directed 02/03/2013 Inactive Gabapentin 100 mg Tab RxNorm: 400211 1 Tablet(s) PO BID 04/12/2010 Inactive Voltaren 1 % topical gel RxNorm: 609061 TOP as needed 06/23/201805/26 Inactive Gabapentin 300 mg Cap RxNorm: 503337 1 Capsule(s) PO BID 07/12/2011 0 07/11/2011 Inactive Contour Test Strips RxNorm: Miscellaneous Test blood sug ar daily (Dx: E11.65) 02/28/2018 02/27/2018 Inactive Promethazine 25 mg Tab RxNorm: 266270 1 Tablet(s) PO Q6 -8H As needed for nausea and vomiting. 10/09/2010 10/08/2010 Inactive propranolol 20 mg tablet RxNorm: 066740 1 Tablet(s) PO BID 03/17/20 18 03/16/2018 Inactive Vitamin D 50,000 unit Cap RxNorm: 2011217 Capsule(s) PO 2 weekly 06/05/2010 Inactive Synthroid 175 mcg Tab RxNorm: 182174 1 Tablet(s) PO QD 07/12/2011 Inactive triamcinolone acetonide 0.1 % Ointment RxNorm: 2458403 T OP TID apply three times a day (sparingly) as needed for itching 04/04/2017 04/03/2017 Inactive Ultram 50 mg Tab RxNorm: 553190 1-2 Tablet(s) PO QID prn pain 03/2203/22/2011 Inactive Topamax 100 mg Tab RxNorm: 657262 1 Tablet(s) PO BID 10/04/200910/03 Inactive Vitamin D3 1000 units Capsule RxNorm: 3 Capsule(s) PO QD 0 06/05/2010 Inactive Singulair 10 mg tablet RxNorm: 005418 1 Tablet(s) PO QD 06/23/2018 Inactive Medication [...] Code Result Date S ervice Location SARS-CoV2 4208173 SARS-CoV2 PCR Detected 07/08/2021 [facility]kno wn GFR CALC 6519208 GFR Non Afr Amr >60 mL/min 01/26/2019 Un known GFR CALC 2195868 GFR Afr Amr >60 mL/min 01/26/2019 Unknow n COMPLETE BLOOD COUNT 2713863 WBC 7.0 10e9/L 01/27/20 19 Unknown COMPLETE BLOOD COUNT 9038306 RBC 4.52 10e12/L 2018 Unknown COMPLETE BLOOD COUNT 8892371 HEMOGLOBIN 14.0 g/dL 01/27/20 19 Unknown COMPLETE BLOOD COUNT 9728584 HEMATOCRIT 42.6 % 01/27/20 19 Unknown COMPLETE BLOOD COUNT 5539661 MCV 94.2 fL 9 Unknown COMPLETE BLOOD COUNT 3347952 MCH 31.0 pg 9 Unknown COMPLETE BLOOD COUNT 6122006 MCHC 32.9 g/dL 9 Unknown COMPLETE BLOOD COUNT 4473407 PLATELET COUNT 272 10e9/L 10/2018 Unknown COMPLETE BLOOD COUNT 4921829 Mean Plt Volume 10.4 fL 10/2018 Unknown COMPLETE BLOOD COUNT 6160286 Neut Auto 53.9 % 9 Unknown COMPLETE BLOOD COUNT 3902793 Lymph Auto 33.8 % 01/27/20 19 Unknown COMPLETE BLOOD COUNT 9422783 Merrick Auto 9.1 % 9 Unknown COMPLETE BLOOD COUNT 0145851 RDW 13.2 % 9 Unknown COMPLETE BLOOD COUNT 3784429 Eos Auto 2.3 % 9 Unknown COMPLETE BLOOD COUNT 0134593 Baso Auto 0.9 % 9 Unknown COMPLETE BLOOD COUNT 2586709 Neutrophil Abs 3.77 10e9/L Unknown COMPLETE BLOOD COUNT 6743194 Lymphocyte Abs 2.37 10e9/L Unknown COMPLETE BLOOD COUNT 6957422 Monocyte Abs 0.64 10e9/L 10/2018 Unknown COMPLETE BLOOD COUNT 0651496 Eosinophil Abs 0.16 10e9/L Unknown COMPLETE BLOOD COUNT 0221675 RDW-SD 44.2 fL 9 Unknown COMPLETE BLOOD COUNT 3558947 Basophil Abs 0.06 10e9/L 10/2018 Unknown COMPREHENSIVE METABOLIC 92206 AST 15 U/L 2018 Unknown COMPREHENSIVE METABOLIC 80343 ALT 18 U/L 2018 Unknown COMPREHENSIVE METABOLIC 12269 BUN 10 mg/dL 2018 Unknown COMPREHENSIVE METABOLIC 19406 ALBUMIN 4.1 g/dL 2018 Unknown COMPREHENSIVE METABOLIC 80863 CHLORIDE 100 mmol/L 01/26 Unknown COMPREHENSIVE METABOLIC 44117 Bili Total 0.4 mg/dL 01/26 Unknown COMPREHENSIVE METABOLIC 53460 ALK PHOS 57 U/L 2018 Unknown COMPREHENSIVE METABOLIC 22540 SODIUM 136 mmol/L 01/26 Unknown COMPREHENSIVE METABOLIC 29133 CREATININE 0.71 mg/dL 10/2018 Unknown COMPREHENSIVE METABOLIC 50136 CALCIUM 9.3 mg/dL 2018 Unknown COMPREHENSIVE METABOLIC 02916 POTASSIUM 4.4 mmol/L 01/26 Unknown COMPREHENSIVE METABOLIC 73760 Total Protein 6.7 g/dL Unknown COMPREHENSIVE METABOLIC 54233 Glucose 88 mg/dL 2018 Unknown COMPREHENSIVE METABOLIC 58232 Bicarbonate 27 mmol/L 10/2018 Unknown COMPREHENSIVE METABOLIC 46849 AGAP 9 mmol/L 2018 Unknown Procedures Procedure Codes Date URINALYSIS NONAUTO W/O SCOPE CPT-4: 28194 09/10/2022 URINALYSIS NONAUTO W/O SCOPE CPT-4: 78333 09/05/2022 RML URINE CULTURE/ COLONY COUNT CPT-4: 44026 09/06/19 23 RML URINE CULTURE/ COLONY COUNT CPT-4: 85784 06/29/19 23 THER/PROPH/DIAG INJ SC/IM CPT-4: 77880 04/18/2022 KETOROLAC TROMETHAMINE INJ CPT-4: J1885 04/18/2022 FLU 64 + VACC AIIV4 NO PRSRV 0.5ML IM CPT-4: 56970 ADMIN INFLUENZA VIRUS VAC CPT-4: G0008 04/05/2022 PPPS, subseq visit CPT-4: G0439 02/06/2022 DEXAMETHASONE SODIUM PHOS CPT-4: J1100 11/09/2021 THER/PROPH/DIAG INJ SC/IM CPT-4: 82113 11/09/2021 TRIAMCINOLONE ACET INJ NOS CPT-4: J3301 11/09/2021 CEFTRIAXONE SODIUM INJECTION CPT-4: J0696 10/30/2021 THER/PROPH/DIAG INJ SC/IM CPT-4: 08524 10/30/2021 INFLUENZA ASSAY W/OPTIC CPT-4: 86157 10/30/2021 THER/PROPH/DIAG INJ SC/IM CPT-4: 24457 09/05/2021 TRIAMCINOLONE ACET INJ NOS CPT-4: J3301 09/05/2021 INFLUENZA ASSAY W/OPTIC CPT-4: 72537 07/04/2021 SARS-CoV2 CPT-4: 6920774 07/04/2021 FLU VACC PRSV FREE INC ANTIG 65 AND OLDER CPT-4: 59140 03/29/2021 FLU VACC PRSV FREE INC ANTIG 65 AND OLDER CPT-4: 29318 03/29/2021 ADMIN INFLUENZA VIRUS VAC CPT-4: G0008 03/29/2021 DRAINAGE OF SKIN ABSCESS CPT-4: 03749 02/08/2021 PPPS, subseq visit CPT-4: G0439 01/03/2021 OCCULT BLOOD FECES CPT-4: 18093 07/13/2020 RML URINE CULTURE/ COLONY COUNT CPT-4: 16481 05/17/20 URINALYSIS NONAUTO W/O SCOPE CPT-4: 66615 05/17/2020 CEFTRIAXONE SODIUM INJECTION CPT-4: J0696 03/07/2020 THER/PROPH/DIAG INJ SC/IM CPT-4: 94891 03/07/2020 THER/PROPH/DIAG INJ SC/IM CPT-4: 52318 03/07/2020 METHYLPREDNISOLONE INJECTION CPT-4: J2930 03/07/2020 PPPS, subseq visit CPT-4: G0439 12/21/2019 RML URINE CULTURE/ COLONY COUNT CPT-4: 17961 09/11/19 20 CEFTRIAXONE SODIUM INJECTION CPT-4: J0696 09/08/2019 THER/PROPH/DIAG INJ SC/IM CPT-4: 13292 09/08/2019 THER/PROPH/DIAG INJ SC/IM CPT-4: 96159 09/07/2019 CEFTRIAXONE SODIUM INJECTION CPT-4: J0696 09/07/2019 THER/PROPH/DIAG INJ SC/IM CPT-4: 00790 09/07/2019 URINALYSIS NONAUTO W/O SCOPE CPT-4: 12635 09/02/2019 RML URINE CULTURE/ COLONY COUNT CPT-4: 57526 09/02/19 20 FLU VACC PRSV FREE INC ANTIG 65 AND OLDER CPT-4: 95193 04/15/2019 URINALYSIS NONAUTO W/O SCOPE CPT-4: 74898 04/15/2019 RML URINE CULTURE/ COLONY COUNT CPT-4: 01297 04/15/20 19 ADMIN INFLUENZA VIRUS VAC CPT-4: G0008 04/15/2019 FLU VACC PRSV FREE INC ANTIG 65 AND OLDER CPT-4: 45409 04/15/2019 THER/PROPH/DIAG INJ SC/IM CPT-4: 44106 04/07/2019 TRIAMCINOLONE ACET INJ NOS CPT-4: J3301 04/07/2019 DEXAMETHASONE SODIUM PHOS CPT-4: J1100 04/07/2019 URINALYSIS NONAUTO W/O SCOPE CPT-4: 55044 03/18/2019 RML URINE CULTURE/ COLONY COUNT CPT-4: 17247 03/18/20 19 ROUTINE VENIPUNCTURE CPT-4: 82891 01/26/2019 RML COMPREHEN METABOLIC PANEL CPT-4: 40610 01/26/2019 RML COMPLETE CBC W/AUTO DIFF WBC CPT-4: 91621 019 RML URINE CULTURE/ COLONY COUNT CPT-4: 14297 01/27/20 19 URINALYSIS NONAUTO W/O SCOPE CPT-4: 60638 01/26/2019 THER/PROPH/DIAG INJ SC/IM CPT-4: 67810 01/08/2019 TRIAMCINOLONE ACET INJ NOS CPT-4: J3301 01/08/2019 THER/PROPH/DIAG INJ SC/IM CPT-4: 29447 01/06/2019 METHYLPREDNISOLONE INJECTION CPT-4: J2930 01/06/2019 AIRWAY INHALATION TREATMENT CPT-4: 49732 01/06/2019 RML URINE CULTURE/ COLONY COUNT CPT-4: 03178 01/07/20 19 PPPS, subseq visit CPT-4: G0439 12/11/2018 URINALYSIS NONAUTO W/O SCOPE CPT-4: 91462 12/11/2018 RML URINE CULTURE/ COLONY COUNT CPT-4: 05800 12/12/19 19 CULTURE OTHR SPECIMN AEROBIC CPT-4: 32071 12/11/2018 OCCULT BLOOD FECES CPT-4: 54281 12/11/2018 THER/PROPH/DIAG INJ SC/IM CPT-4: 15164 10/07/2018 TRIAMCINOLONE ACET INJ NOS CPT-4: J3301 10/07/2018 DEXAMETHASONE SODIUM PHOS CPT-4: J1100 10/07/2018 THER/PROPH/DIAG INJ SC/IM CPT-4: 83787 10/16/2017 TRIAMCINOLONE ACET INJ NOS CPT-4: J3301 10/16/2017 THER/PROPH/DIAG INJ SC/IM CPT-4: 83880 10/16/2017 KETOROLAC TROMETHAMINE INJ CPT-4: J1885 10/16/2017 INFLUENZA ASSAY W/OPTIC CPT-4: 71675 07/25/2017 FLU VACC PRSV FREE INC ANTIG 65 AND OLDER CPT-4: 28317 04/04/2017 PNEUMOCOCCAL VACC 23 DANAY IM CPT-4: 87781 04/04/2017 PPPS, subseq visit CPT-4: G0439 04/04/2017 ADMIN INFLUENZA VIRUS VAC CPT-4: G0008 04/04/2017 ADMIN PNEUMOCOCCAL VACCINE CPT-4: G0009 04/04/2017 URINALYSIS NONAUTO W/O SCOPE CPT-4: 13718 06/05/2016 FLU VACC PRSV FREE INC ANTIG 65 AND OLDER CPT-4: 94847 05/01/2016 ADMIN INFLUENZA VIRUS VAC CPT-4: G0008 05/01/2016 URINALYSIS NONAUTO W/O SCOPE CPT-4: 81426 11/08/2015 URINALYSIS NONAUTO W/O SCOPE CPT-4: 01480 03/28/2015 ADMIN INFLUENZA VIRUS VAC CPT-4: G0008 03/28/2015 FLU VACC PRSV FREE INC ANTIG 65 AND OLDER CPT-4: 24671 03/28/2015 PRESCRIP TRANSMIT VIA ERX SY CPT-4: G8553 03/28/2015 PNEUMOCOCCAL VACC 13 DANAY IM CPT-4: 25016 02/08/2015 ADMIN PNEUMOCOCCAL VACCINE CPT-4: G0009 02/08/2015 PRESCRIP TRANSMIT VIA ERX SY CPT-4: G8553 02/08/2015 RML URINE CULTURE/ COLONY COUNT CPT-4: 27025 01/12/20 15 URINALYSIS NONAUTO W/O SCOPE CPT-4: 44967 01/11/2015 PRESCRIP TRANSMIT VIA ERX SY CPT-4: G8553 01/11/2015 PRESCRIP TRANSMIT VIA ERX SY CPT-4: G8553 11/24/2014 URINALYSIS NONAUTO W/O SCOPE CPT-4: 87922 10/27/2014 RML URINE CULTURE/ COLONY COUNT CPT-4: 86499 10/28/19 15 PRESCRIP TRANSMIT VIA ERX SY CPT-4: G8553 10/27/2014 CEFTRIAXONE SODIUM INJECTION CPT-4: J0696 09/23/2014 THER/PROPH/DIAG INJ SC/IM CPT-4: 81402 09/23/2014 URINALYSIS NONAUTO W/O SCOPE CPT-4: 97454 09/23/2014 RML URINE CULTURE/ COLONY COUNT CPT-4: 07855 09/24/19 15 PRESCRIP TRANSMIT VIA ERX SY CPT-4: G8553 09/23/2014 URINALYSIS NONAUTO W/O SCOPE CPT-4: 23658 03/30/2014 RML URINE CULTURE/ COLONY COUNT CPT-4: 97167 03/30/20 14 PRESCRIP TRANSMIT VIA ERX SY CPT-4: G8553 03/30/2014 PRESCRIP TRANSMIT VIA ERX SY CPT-4: G8553 11/24/2013 PRESCRIP TRANSMIT VIA ERX SY CPT-4: G8553 06/29/2013 PRESCRIP TRANSMIT VIA ERX SY CPT-4: G8553 05/26/2013 PRESCRIP TRANSMIT VIA ERX SY CPT-4: G8553 04/23/2013 THER/PROPH/DIAG INJ SC/IM CPT-4: 62966 03/05/2013 KETOROLAC TROMETHAMINE INJ CPT-4: J1885 03/05/2013 PRESCRIP TRANSMIT VIA ERX SY CPT-4: G8553 11/27/2012 PRESCRIP TRANSMIT VIA ERX SY CPT-4: G8553 11/11/2012 PRESCRIP TRANSMIT VIA ERX SY CPT-4: G8553 09/03/2012 PRESCRIP TRANSMIT VIA ERX SY CPT-4: G8553 07/23/2012 PRESCRIP TRANSMIT VIA ERX SY CPT-4: G8553 05/20/2012 PRESCRIP TRANSMIT VIA ERX SY CPT-4: G8553 04/04/2012 DESTRUCT PREMALG LESION (Cryosurgery) CPT-4: 03848 PRESCRIP TRANSMIT VIA ERX SY CPT-4: G8553 01/02/2012 PRESCRIP TRANSMIT VIA ERX SY CPT-4: G8553 09/04/2011 URINALYSIS NONAUTO W/O SCOPE CPT-4: 73068 07/31/2011 PRESCRIP TRANSMIT VIA ERX SY CPT-4: G8553 07/12/2011 PRESCRIP TRANSMIT VIA ERX SY CPT-4: G8553 05/09/2011 THER/PROPH/DIAG INJ SC/IM CPT-4: 12834 05/02/2011 KETOROLAC TROMETHAMINE INJ CPT-4: J1885 05/02/2011 PRESCRIP TRANSMIT VIA ERX SY CPT-4: G8553 04/25/2011 CUR TOBACCO NON-USER CPT-4: G8457 04/04/2011 PRESCRIP TRANSMIT VIA ERX SY CPT-4: G8553 04/04/2011 DRAIN/INJECT JOINT/BURSA CPT-4: 61148 03/01/2011 METHYLPREDNISOLONE 40 MG INJ CPT-4: J1030 03/01/2011 TRIAMCINOLONE ACET INJ NOS CPT-4: J3301 03/01/2011 DRAIN/INJECT JOINT/BURSA CPT-4: 45554 01/04/2011 METHYLPREDNISOLONE 40 MG INJ CPT-4: J1030 01/04/2011 TRIAMCINOLONE ACET INJ NOS CPT-4: J3301 01/04/2011 PRESCRIP TRANSMIT VIA ERX SY CPT-4: G8553 12/07/2010 PRESCRIP TRANSMIT VIA ERX SY CPT-4: G8553 10/09/2010 PRESCRIP TRANSMIT VIA ERX SY CPT-4: G8553 06/06/2010 DRAIN/INJECT JOINT/BURSA CPT-4: 80573 04/12/2010 TRIAMCINOLONE ACET INJ NOS CPT-4: J3301 04/12/2010 METHYLPREDNISOLONE 80 MG INJ CPT-4: J1040 04/12/2010 PRESCRIP TRANSMIT VIA ERX SY CPT-4: G8553 03/20/2010 THER/PROPH/DIAG INJ SC/IM CPT-4: 77024 01/30/2010 KETOROLAC TROMETHAMINE INJ CPT-4: J1885 01/30/2010 PRESCRIP TRANSMIT VIA ERX SY CPT-4: G8553 01/30/2010 DRAIN/INJECT JOINT/BURSA CPT-4: 64881 10/26/2009 TRIAMCINOLONE ACET INJ NOS CPT-4: J3301 10/26/2009 METHYLPREDNISOLONE 80 MG INJ CPT-4: J1040 10/26/2009 DRAINAGE OF SKIN ABSCESS CPT-4: 45743 10/04/2009 Vital Signs Date Vital 09/10/2022 Blood Pressure 1: 132/78 Code: 8480-6 Heart Rate 1: 74 bpm Respiratory Rate: 18 bpm SpO2: 95% Temperature: 36.2 (C) / 97.1 (F) We ight: 220 lbs Code: 00318-9 09/05/2022 Blood Pressure 1: 124/78 Code: 8480-6 Heart Rate 1: 65 bpm Respiratory Rate: 20 bpm SpO2: 97% Temperature: 36.7 (C) / 98.0 (F) We ight: 224 lbs Code: 31510-2 08/30/2022 Blood Pressure 1: 124/74 Code: 8480-6 Heart Rate 1: 74 bpm Respiratory Rate: 20 bpm SpO2: 96% Temperature: 36.3 (C) / 97.3 (F) We ight: 224 lbs Code: 18053-9 08/07/2022 Blood Pressure 1: 126/74 Code: 8480-6 Heart Rate 1: 73 bpm Respiratory Rate: 20 bpm SpO2: 97% Temperature: 36.2 (C) / 97.1 (F) We ight: 222 lbs Code: 90117-8 06/29/2022 Blood Pressure 1: 132/73 Code: 8480-6 BMI: 36.7 Code: 16166-8 Heart Rate 1: 74 bpm Height: 5'6" Code: 8302-2 SpO2: 96% Temperature: 3 6.4 (C) / 97.6 (F) Weight: 226 lbs Code: 13074-5 05/28/2022 Blood Pressure 1: 129/78 Code: 8480-6 BMI: 37.7 Code: 60055-2 Heart Rate 1: 72 bpm Height: 5'6" Code: 8302-2 SpO2: 95% Temperature: 3 6.2 (C) / 97.1 (F) Weight: 232 lbs Code: 57220-8 05/10/2022 Blood Pressure 1: 133/75 Code: 8480-6 BMI: 38.3 Code: 62362-8 Heart Rate 1: 68 bpm Height: 5'6" Code: 8302-2 SpO2: 98% Temperature: 3 6.2 (C) / 97.1 (F) Weight: 236 lbs Code: 83762-9 04/18/2022 Blood Pressure 1: 118/70 Code: 8480-6 Heart Rate 1: 86 bpm Respiratory Rate: 20 bpm SpO2: 96% Temperature: 36.6 (C) / 97.8 (F) We ight: 238 lbs Code: 71766-3 02/15/2022 Blood Pressure 1: 120/82 Code: 8480-6 Heart Rate 1: 88 bpm Respiratory Rate: 20 bpm SpO2: 98% Temperature: 36.1 (C) / 97.0 (F) We ight: 237 lbs Code: 16752-5 02/06/2022 Blood Pressure 1: 124/80 Code: 8480-6 BMI: 39.4 Code: 94658-6 Heart Rate 1: 76 bpm Height: 5'6" Code: 8302-2 Respiratory Rate: 20 bpm SpO2: 98% Temperature: 36.6 (C) / 97.9 (F) Weight: 242 lbs Code: 85481-0 02/01/2022 Blood Pressure 1: 144/100 Code: 8480-6 Heart Rat e 1: 108 bpm Respiratory Rate: 22 bpm SpO2: 96% Temperature: 36.4 (C) / 97.5 (F) 11/29/2021 Blood Pressure 1: 128/80 Code: 8480-6 Heart Rate 1: 56 bpm Respiratory Rate: 20 bpm SpO2: 97% Temperature: 36.7 (C) / 98.1 (F) We ight: 242 lbs Code: 98141-6 11/22/2021 Blood Pressure 1: 118/80 Code: 8480-6 Heart Rate 1: 84 bpm Respiratory Rate: 20 bpm SpO2: 99% Temperature: 36.3 (C) / 97.4 (F) 11/21/2021 Blood Pressure 1: 132/80 Code: 8480-6 Heart Rate 1: 98 bpm Respiratory Rate: 20 bpm SpO2: 99% Weight: 238 lbs Code: 44022 -7 11/09/2021 Blood Pressure 1: 136/86 Code: 8480-6 Heart Rate 1: 68 bpm Respiratory Rate: 20 bpm SpO2: 95% Temperature: 36.4 (C) / 97.5 (F) We ight: 244 lbs Code: 91465-3 10/31/2021 Blood Pressure 1: 128/80 Code: 8480-6 Heart Rate 1: 80 bpm Respiratory Rate: 28 bpm SpO2: 93% Temperature: 38.0 (C) / 100. 4 (F) 10/30/2021 Blood Pressure 1: 136/82 Code: 8480-6 Heart Rate 1: 120 bpm Respiratory Rate: 24 bpm SpO2: 95% Temperature: 38.0 (C) / 100. 4 (F) 09/05/2021 Blood Pressure 1: 118/84 Code: 8480-6 BMI: 38.5 Code: 31001-3 Heart Rate 1: 72 bpm Height: 5'7" Code: 8302-2 Respiratory Rate: 20 bpm SpO2: 95% Temperature: 36.3 (C) / 97.4 (F) Weight: 246 lbs Code: 01317-5 08/24/2021 Blood Pressure 1: 132/84 Code: 8480-6 Heart Rate 1: 76 bpm Respiratory Rate: 19 bpm SpO2: 98% Temperature: 36.7 (C) / 98.1 (F) We ight: Code: 63364-1 03/01/2021 Blood Pressure 1: 90/52 Code: 8480-6 Heart Rate 1: 66 bpm Respiratory Rate: 22 bpm SpO2: 97% 02/08/2021 Blood Pressure 1: 132/75 Code: 8480-6 Heart Rate 1: 74 bpm Respiratory Rate: 18 bpm SpO2: 98% Temperature: 36.3 (C) / 97.3 (F) We ight: 247 lbs Code: 59040-8 01/19/2021 Blood Pressure 1: 126/76 Code: 8480-6 Heart Rate 1: 76 bpm Respiratory Rate: 20 bpm SpO2: 98% Temperature: 37.1 (C) / 98.8 (F) We ight: 244 lbs Code: 49703-7 01/03/2021 Blood Pressure 1: 124/64 Code: 8480-6 BMI: 38.5 Code: 93839-1 Heart Rate 1: 76 bpm Height: 5'7" Code: 8302-2 Respiratory Rate: 20 bpm SpO2: 96% Temperature: 36.4 (C) / 97.6 (F) Weight: 246 lbs Code: 18455-6 11/29/2020 Blood Pressure 1: 119/68 Code: 8480-6 Heart Rate 1: 73 bpm Respiratory Rate: 20 bpm SpO2: 95% Temperature: 36.1 (C) / 96.9 (F) We ight: 245 lbs Code: 89213-9 09/29/2020 Blood Pressure 1: 136/79 Code: 8480-6 Heart Rate 1: 67 bpm Respiratory Rate: 15 bpm SpO2: 98% Temperature: 36.2 (C) / 97.1 (F) We ight: 237 lbs Code: 42690-9 09/19/2020 Blood Pressure 1: 135/82 Code: 8480-6 Heart Rate 1: 76 bpm Respiratory Rate: 17 bpm SpO2: 96% Temperature: 36.6 (C) / 97.8 (F) We ight: 238 lbs Code: 87232-6 08/10/2020 Blood Pressure 1: 126/82 Code: 8480-6 Heart Rate 1: 60 bpm Respiratory Rate: 20 bpm SpO2: 96% Temperature: 36.3 (C) / 97.3 (F) We ight: 238 lbs Code: 42657-2 08/01/2020 Temperature: 36.6 (C) / 97.8 (F) 07/13/2020 Blood Pressure 1: 132/80 Code: 8480-6 Heart Rate 1: 76 bpm Respiratory Rate: 20 bpm SpO2: 97% Temperature: 36.2 (C) / 97.2 (F) We ight: 228 lbs Code: 16231-3 07/05/2020 Temperature: 35.9 (C) / 96.7 (F) 06/22/2020 Blood Pressure 1: 134/82 Code: 8480-6 Heart Rate 1: 60 bpm Respiratory Rate: 20 bpm SpO2: 96% Temperature: 36.4 (C) / 97.6 (F) We ight: 235 lbs Code: 65894-2 05/17/2020 Blood Pressure 1: 141/72 Code: 8480-6 Heart Rate 1: 78 bpm Respiratory Rate: 16 bpm SpO2: 98% Temperature: 36.3 (C) / 97.3 (F) We ight: 232 lbs Code: 88221-6 03/14/2020 Blood Pressure 1: 126/92 Code: 8480-6 Heart Rate 1: 72 bpm Respiratory Rate: 22 bpm SpO2: 96% Temperature: 36.3 (C) / 97.4 (F) We ight: 225 lbs Code: 87934-2 03/07/2020 Blood Pressure 1: 124/86 Code: 8480-6 Heart Rate 1: 72 bpm Respiratory Rate: 24 bpm SpO2: 93% Temperature: 36.2 (C) / 97.1 (F) We ight: 227 lbs Code: 94434-1 12/21/2019 Blood Pressure 1: 114/72 Code: 8480-6 BMI: 36.2 Code: 51681-2 Heart Rate 1: 60 bpm Height: 5'7" Code: 8302-2 Respiratory Rate: 20 bpm SpO2: 97% Temperature: 36.7 (C) / 98.1 (F) Weight: 231 lbs Code: 75211-0 09/02/2019 Blood Pressure 1: 138/85 Code: 8480-6 Heart Rate 1: 76 bpm Respiratory Rate: 20 bpm SpO2: 96% Temperature: 36.3 (C) / 97.3 (F) We ight: 226 lbs Code: 54679-2 07/09/2019 Blood Pressure 1: 123/63 Code: 8480-6 BMI: 34.9 Code: 58019-4 Heart Rate 1: 64 bpm Height: 5'7" Code: 8302-2 Respiratory Rate: 17 bpm SpO2: 97% Temperature: 37.0 (C) / 98.6 (F) Weight: 223 lbs Code: 85161-2 04/15/2019 Blood Pressure 1: 110/82 Code: 8480-6 Heart Rate 1: 66 bpm SpO2: 98% Temperature: 36.1 (C) / 96.9 (F) Weight: 223 lbs Code: 10211-8 04/07/2019 Blood Pressure 1: 132/80 Code: 8480-6 Heart Rate 1: 68 bpm Temperature: 36.9 (C) / 98.4 (F) Weight: 222 lbs Code: 62849-6 03/25/2019 Blood Pressure 1: 108/70 Code: 8480-6 Heart Rate 1: 64 bpm Respiratory Rate: 20 bpm SpO2: 96% Temperature: 36.2 (C) / 97.2 (F) We ight: 221 lbs Code: 96075-8 03/18/2019 Blood Pressure 1: 138/82 Code: 8480-6 Heart Rate 1: 74 bpm SpO2: 99% Temperature: 36.1 (C) / 96.9 (F) Weight: 223 lbs Code: 00600-3 01/26/2019 Blood Pressure 1: 138/90 Code: 8480-6 Heart Rate 1: 68 bpm SpO2: 96% Temperature: 35.9 (C) / 96.7 (F) Weight: 227 lbs Code: 84981-1 01/08/2019 Blood Pressure 1: 134/78 Code: 8480-6 BMI: 36.8 Code: 03210-7 Heart Rate 1: 76 bpm Height: 5'7" Code: 8302-2 SpO2: 93% Temperature: 3 6.4 (C) / 97.6 (F) Weight: 235 lbs Code: 56644-1 01/06/2019 Blood Pressure 1: 116/80 Code: 8480-6 Heart Rate 1: 72 bpm Respiratory Rate: 20 bpm SpO2: 98% Temperature: 36.5 (C) / 97.7 (F) We ight: 232 lbs Code: 58875-4 12/11/2018 Blood Pressure 1: 120/82 Code: 8480-6 BMI: 36.2 Code: 25450-7 Heart Rate 1: 67 bpm Height: 5'7" Code: 8302-2 Respiratory Rate: 18 bpm SpO2: 96% Temperature: 35.9 (C) / 96.7 (F) Weight: 231 lbs Code: 55182-3 10/30/2018 Blood Pressure 1: 126/82 Code: 8480-6 Heart Rate 1: 80 bpm Respiratory Rate: 20 bpm SpO2: 96% Temperature: 36.8 (C) / 98.3 (F) We ight: 228 lbs Code: 10704-7 10/07/2018 Blood Pressure 1: 130/90 Code: 8480-6 Heart Rate 1: 76 bpm Respiratory Rate: 24 bpm SpO2: 97% Temperature: 36.0 (C) / 96.8 (F) We ight: 229 lbs Code: 35288-4 06/23/2018 Blood Pressure 1: 132/80 Code: 8480-6 Heart Rate 1: 72 bpm Respiratory Rate: 20 bpm SpO2: 98% Temperature: 36.7 (C) / 98.0 (F) We ight: 233 lbs Code: 65657-6 01/16/2018 Blood Pressure 1: 116/82 Code: 8480-6 Heart Rate 1: 72 bpm Respiratory Rate: 20 bpm SpO2: 96% Temperature: 36.9 (C) / 98.5 (F) We ight: 230 lbs Code: 81474-6 10/16/2017 Blood Pressure 1: 116/74 Code: 8480-6 BMI: 35.1 Code: 23817-5 Heart Rate 1: 76 bpm Height: 5'7" Code: 8302-2 Respiratory Rate: 20 bpm SpO2: 98% Temperature: 36.7 (C) / 98.1 (F) Weight: 224 lbs Code: 76184-5 09/12/2017 Blood Pressure 1: 124/78 Code: 8480-6 BMI: 34.6 Code: 75661-5 Heart Rate 1: 84 bpm Height: 5'7" Code: 8302-2 Respiratory Rate: 20 bpm SpO2: 95% Temperature: 36.6 (C) / 97.8 (F) Weight: 221 lbs Code: 55592-2 08/20/2017 Blood Pressure 1: 126/78 Code: 8480-6 Heart Rate 1: 92 bpm Height: 5'7" Code: 8302-2 Respiratory Rate: 20 bpm SpO2: 96% Temperature: 36 .9 (C) / 98.5 (F) 08/13/2017 Blood Pressure 1: 124/80 Code: 8480-6 BMI: 34.8 Code: 98653-4 Heart Rate 1: 80 bpm Height: 5'7" Code: 8302-2 Respiratory Rate: 20 bpm SpO2: 96% Temperature: 36.7 (C) / 98.0 (F) Weight: 222 lbs Code: 63216-3 07/29/2017 Blood Pressure 1: 114/70 Code: 8480-6 BMI: 34.5 Code: 92320-7 Heart Rate 1: 76 bpm Height: 5'7" Code: 8302-2 Respiratory Rate: 20 bpm SpO2: 97% Temperature: 36.9 (C) / 98.4 (F) Weight: 220 lbs Code: 13589-4 07/25/2017 Blood Pressure 1: 142/76 Code: 8480-6 BMI: 34.9 Code: 82807-0 Heart Rate 1: 92 bpm Height: 5'7" Code: 8302-2 Respiratory Rate: 18 bpm SpO2: 96% Temperature: 36.7 (C) / 98.1 (F) Weight: 223 lbs Code: 31076-9 06/10/2017 Blood Pressure 1: 136/82 Code: 8480-6 BMI: 34.3 Code: 52391-4 Heart Rate 1: 68 bpm Height: 5'7" Code: 8302-2 Respiratory Rate: 20 bpm SpO2: 96% Temperature: 36.7 (C) / 98.0 (F) Weight: 219 lbs Code: 10398-4 05/28/2017 Blood Pressure 1: 136/70 Code: 8480-6 BMI: 34.1 Code: 43160-1 Heart Rate 1: 84 bpm Height: 5'7" Code: 8302-2 Respiratory Rate: 20 bpm SpO2: 95% Temperature: 35.9 (C) / 96.6 (F) Weight: 218 lbs Code: 14572-2 04/04/2017 Blood Pressure 1: 122/78 Code: 8480-6 BMI: 33.4 Code: 63960-8 Heart Rate 1: 68 bpm Height: 5'7" Code: 8302-2 Respiratory Rate: 20 bpm SpO2: 96% Temperature: 36.7 (C) / 98.0 (F) Weight: 213 lbs Code: 43258-6 11/28/2016 Blood Pressure 1: 114/82 Code: 8480-6 BMI: 33.7 Code: 97936-7 Heart Rate 1: 72 bpm Height: 5'7" Code: 8302-2 Respiratory Rate: 20 bpm SpO2: 98% Temperature: 36.4 (C) / 97.6 (F) Weight: 215 lbs Code: 67733-1 06/05/2016 Blood Pressure 1: 104/68 Code: 8480-6 BMI: 33.7 Code: 66736-1 Heart Rate 1: 68 bpm Height: 5'7" Code: 8302-2 Respiratory Rate: 20 bpm SpO2: 96% Temperature: 36.8 (C) / 98.2 (F) Weight: 215 lbs Code: 01212-1 11/08/2015 Blood Pressure 1: 122/70 Code: 8480-6 BMI: 33.8 Code: 52825-1 Heart Rate 1: 80 bpm Height: 5'7" Code: 8302-2 Respiratory Rate: 20 bpm Temperatu re: 36.8 (C) / 98.2 (F) Weight: 216 lbs Code: 39550-1 07/19/2015 Blood Pressure 1: 122/70 Code: 8480-6 BMI: 33.0 Code: 73415-4 Heart Rate 1: 80 bpm Height: 5'7" Code: 8302-2 Respiratory Rate: 18 bpm Temperatu re: 35.9 (C) / 96.6 (F) Weight: 211 lbs Code: 57390-1 03/28/2015 Blood Pressure 1: 124/70 Code: 8480-6 BMI: 31.8 Code: 64480-2 Heart Rate 1: 72 bpm Height: 5'7" Code: 8302-2 Respiratory Rate: 20 bpm Temperatu re: 36.8 (C) / 98.2 (F) Weight: 203 lbs Code: 29681-1 02/08/2015 Blood Pressure 1: 98/58 Code: 8480-6 BMI: 32.1 C ode: 48761-0 Heart Rate 1: 84 bpm Height: 5'7" Code: 8302-2 Respiratory Rate: 20 bpm Temperatu re: 36.7 (C) / 98.0 (F) Weight: 205 lbs Code: 59270-9 01/11/2015 Blood Pressure 1: 118/78 Code: 8480-6 BMI: 32.1 Code: 01572-2 Heart Rate 1: 84 bpm Height: 5'7" Code: 8302-2 Respiratory Rate: 20 bpm Temperatu re: 36.6 (C) / 97.9 (F) Weight: 205 lbs Code: 33626-6 11/24/2014 Blood Pressure 1: 124/80 Code: 8480-6 BMI: 32.0 Code: 00248-2 Heart Rate 1: 76 bpm Height: 5'7" Code: 8302-2 Respiratory Rate: 20 bpm Temperatu re: 36.2 (C) / 97.1 (F) Weight: 204 lbs Code: 30344-8 11/19/2014 Blood Pressure 1: 132/78 Code: 8480-6 BMI: 32.7 Code: 18946-8 Heart Rate 1: 68 bpm Height: 5'7" Code: 8302-2 Respiratory Rate: 20 bpm SpO2: 98% Temperature: 36.7 (C) / 98.0 (F) Weight: 209 lbs Code: 85766-4 10/27/2014 Blood Pressure 1: 118/76 Code: 8480-6 BMI: 32.6 Code: 47597-2 Heart Rate 1: 64 bpm Height: 5'7" Code: 8302-2 Respiratory Rate: 20 bpm Temperatu re: 36.7 (C) / 98.0 (F) Weight: 208 lbs Code: 35743-1 09/23/2014 Blood Pressure 1: 118/68 Code: 8480-6 BMI: 34.3 Code: 09333-1 Heart Rate 1: 78 bpm Height: 5'7" Code: 8302-2 Respiratory Rate: 22 bpm Temperatu re: 36.4 (C) / 97.6 (F) Weight: 219 lbs Code: 58083-9 07/28/2014 Blood Pressure 1: 126/80 Code: 8480-6 BMI: 33.5 Code: 54016-5 Heart Rate 1: 76 bpm Height: 5'7" Code: 8302-2 Respiratory Rate: 20 bpm Temperatu re: 36.4 (C) / 97.6 (F) Weight: 214 lbs Code: 83136-9 03/30/2014 Blood Pressure 1: 128/80 Code: 8480-6 BMI: 35.2 Code: 92064-9 Heart Rate 1: 88 bpm Height: 5'7" Code: 8302-2 Respiratory Rate: 20 bpm Temperatu re: 36.4 (C) / 97.6 (F) Weight: 225 lbs Code: 70015-9 11/24/2013 Blood Pressure 1: 124/82 Code: 8480-6 BMI: 35.6 Code: 10386-0 Heart Rate 1: 80 bpm Height: 5'7" Code: 8302-2 Respiratory Rate: 22 bpm Temperatu re: 36.2 (C) / 97.1 (F) Weight: 227 lbs Code: 03773-8 08/25/2013 Blood Pressure 1: 128/80 Code: 8480-6 BMI: 37.4 Code: 14124-5 Heart Rate 1: 76 bpm Height: 5'7" Code: 8302-2 Respiratory Rate: 20 bpm Temperatu re: 36.6 (C) / 97.9 (F) Weight: 239 lbs Code: 27989-7 06/29/2013 Blood Pressure 1: 106/78 Code: 8480-6 BMI: 38.1 Code: 55104-2 Heart Rate 1: 80 bpm Height: 5'7" Code: 8302-2 Respiratory Rate: 20 bpm Temperatu re: 36.6 (C) / 97.9 (F) Weight: 243 lbs Code: 42276-9 05/26/2013 Blood Pressure 1: 122/80 Code: 8480-6 BMI: 39.3 Code: 03692-1 Heart Rate 1: 80 bpm Height: 5'7" Code: 8302-2 Respiratory Rate: 20 bpm Temperatu re: 36.9 (C) / 98.4 (F) Weight: 251 lbs Code: 82304-6 05/06/2013 Blood Pressure 1: 128/78 Code: 8480-6 BMI: 39.2 Code: 18023-5 Heart Rate 1: 76 bpm Height: 5'7" Code: 8302-2 Respiratory Rate: 22 bpm Temperatu re: 35.8 (C) / 96.4 (F) Weight: 250 lbs Code: 55340-6 04/23/2013 Blood Pressure 1: 132/92 Code: 8480-6 BMI: 39.6 Code: 33062-1 Heart Rate 1: 88 bpm Height: 5'7" Code: 8302-2 Respiratory Rate: 28 bpm SpO2: 97% Temperature: 36.5 (C) / 97.7 (F) Weight: 253 lbs Code: 10875-0 03/31/2013 Blood Pressure 1: 122/80 Code: 8480-6 BMI: 39.0 Code: 76442-6 Heart Rate 1: 84 bpm Height: 5'7" Code: 8302-2 Respiratory Rate: 20 bpm Temperatu re: 36.6 (C) / 97.8 (F) Weight: 249 lbs Code: 66836-6 03/05/2013 Blood Pressure 1: 120/80 Code: 8480-6 BMI: 39.2 Code: 22620-9 Heart Rate 1: 60 bpm Height: 5'7" Code: 8302-2 Respiratory Rate: 22 bpm Temperatu re: 35.9 (C) / 96.6 (F) Weight: 250 lbs Code: 43471-8 02/04/2013 Blood Pressure 1: 124/80 Code: 8480-6 BMI: 38.4 Code: 46973-8 Heart Rate 1: 80 bpm Height: 5'7" Code: 8302-2 Respiratory Rate: 20 bpm Temperatu re: 36.4 (C) / 97.6 (F) Weight: 245 lbs Code: 73189-6 11/27/2012 Blood Pressure 1: 127/83 Code: 8480-6 Te mperature: 36.1 (C) / 96.9 (F) Weight: 243 lbs 2 oz Code: 77914-9 11/11/2012 Blood Pressure 1: 126/82 Code: 8480-6 BMI: 37.4 Code: 53936-1 Heart Rate 1: 80 bpm Height: 5'7" Code: 8302-2 Respiratory Rate: 20 bpm Temperatu re: 36.8 (C) / 98.2 (F) Weight: 239 lbs Code: 24181-6 10/20/2012 Blood Pressure 1: 114/80 Code: 8480-6 BMI: 37.1 Code: 72758-7 Heart Rate 1: 104 bpm Height: 5'7" Code: 8302-2 Respiratory Rate: 20 bpm Temperatu re: 36.9 (C) / 98.4 (F) Weight: 237 lbs Code: 22061-5 09/03/2012 Blood Pressure 1: 118/72 Code: 8480-6 BMI: 37.3 Code: 44924-2 Heart Rate 1: 70 bpm Height: 5'7" Code: 8302-2 Temperature: 35.6 (C) / 96.0 (F) Weight: 238 lbs Code: 50959-4 07/23/2012 Blood Pressure 1: 124/78 Code: 8480-6 BMI: 36.8 Code: 92583-4 Heart Rate 1: 68 bpm Height: 5'7" Code: 8302-2 Temperature: 35.6 (C) / 96.0 (F) Weight: 235 lbs Code: 67440-3 05/20/2012 Blood Pressure 1: 112/70 Code: 8480-6 BMI: 37.1 Code: 59237-2 Heart Rate 1: 76 bpm Height: 5'7" Code: 8302-2 Respiratory Rate: 20 bpm Temperatu re: 36.7 (C) / 98.1 (F) Weight: 237 lbs Code: 22791-8 04/04/2012 Blood Pressure 1: 110/64 Code: 8480-6 BMI: 37.1 Code: 35825-4 Heart Rate 1: 68 bpm Height: 5'7" Code: 8302-2 Temperature: 36.1 (C) / 97.0 (F) Weight: 237 lbs Code: 96957-3 02/20/2012 Blood Pressure 1: 136/78 Code: 8480-6 BMI: 37.1 Code: 94716-0 Heart Rate 1: 72 bpm Height: 5'7" Code: 8302-2 Respiratory Rate: 20 bpm Temperatu re: 36.7 (C) / 98.0 (F) Weight: 237 lbs Code: 01996-3 01/02/2012 Blood Pressure 1: 122/70 Code: 8480-6 BMI: 37.1 Code: 38287-4 Heart Rate 1: 76 bpm Height: 5'7" Code: 8302-2 Respiratory Rate: 20 bpm Temperatu re: 37.0 (C) / 98.6 (F) Weight: 237 lbs Code: 82272-0 09/04/2011 Blood Pressure 1: 120/84 Code: 8480-6 BMI: 35.4 Code: 95595-6 Heart Rate 1: 68 bpm Height: 5'7" Code: 8302-2 Temperature: 30.0 (C) / 86.0 (F) Weight: 226 lbs Code: 43338-1 08/14/2011 Blood Pressure 1: 120/82 Code: 8480-6 BMI: 36.5 Code: 67719-9 Heart Rate 1: 80 bpm Height: 5'7" Code: 8302-2 Temperature: 36.6 (C) / 97.8 (F) Weight: 233 lbs Code: 61455-9 07/31/2011 Blood Pressure 1: 138/86 Code: 8480-6 BMI: 37.0 Code: 71072-6 Heart Rate 1: 94 bpm Height: 5'7" Code: 8302-2 Temperature: 35.4 (C) / 95.7 (F) Weight: 236 lbs Code: 20015-6 07/25/2011 Blood Pressure 1: 128/80 Code: 8480-6 BMI: 37.0 Code: 30517-0 Heart Rate 1: 80 bpm Height: 5'7" Code: 8302-2 Temperature: 35.6 (C) / 96.0 (F) Weight: 236 lbs Code: 03030-2 07/12/2011 Blood Pressure 1: 132/80 Code: 8480-6 BMI: 37.0 Code: 22947-0 Heart Rate 1: 96 bpm Height: 5'7" Code: 8302-2 Respiratory Rate: 20 bpm Temperatu re: 36.3 (C) / 97.3 (F) Weight: 236 lbs Code: 77559-2 05/09/2011 Blood Pressure 1: 106/78 Code: 8480-6 BMI: 36.6 Code: 71116-9 Heart Rate 1: 72 bpm Height: 5'7" Code: 8302-2 Respiratory Rate: 20 bpm Temperatu re: 36.4 (C) / 97.6 (F) Weight: 234 lbs Code: 41072-8 05/02/2011 Blood Pressure 1: 96/72 Code: 8480-6 BMI: 36.6 C ode: 26633-7 Heart Rate 1: 108 bpm Height: 5'7" Code: 8302-2 Respiratory Rate: 24 bpm Temperatu re: 36.7 (C) / 98.0 (F) Weight: 234 lbs Code: 10758-5 04/25/2011 Blood Pressure 1: 120/72 Code: 8480-6 BMI: 36.5 Code: 52953-5 Heart Rate 1: 70 bpm Height: 5'7" Code: 8302-2 Temperature: 36.7 (C) / 98.0 (F) Weight: 233 lbs Code: 83334-2 04/04/2011 Blood Pressure 1: 126/92 Code: 8480-6 BMI: 36.5 Code: 55796-6 Heart Rate 1: 84 bpm Height: 5'7" Code: 8302-2 Respiratory Rate: 20 bpm Temperatu re: 36.2 (C) / 97.2 (F) Weight: 233 lbs Code: 87175-0 03/01/2011 Blood Pressure 1: 132/78 Code: 8480-6 Heart Rate 1: 88 bpm Temperature: 36.8 (C) / 98.2 (F) Weight: 231 lbs Code: 42336-4 01/04/2011 Blood Pressure 1: 122/78 Code: 8480-6 BMI: 37.0 Code: 38869-6 Heart Rate 1: 80 bpm Height: 5'7" Code: 8302-2 Temperature: 37.0 (C) / 98.6 (F) Weight: 236 lbs Code: 54547-0 12/07/2010 Blood Pressure 1: 132/92 Code: 8480-6 Heart Rate 1: 98 bpm Temperature: 36.2 (C) / 97.2 (F) Weight: 237 lbs Code: 20232-3 10/09/2010 Blood Pressure 1: 128/80 Code: 8480-6 Heart Rate 1: 72 bpm Temperature: 36.5 (C) / 97.7 (F) Weight: 244 lbs Code: 72675-6 08/07/2010 Blood Pressure 1: 114/80 Code: 8480-6 Heart Rate 1: 72 bpm Temperature: 36.2 (C) / 97.1 (F) Weight: 245 lbs Code: 58125-7 06/06/2010 Blood Pressure 1: 132/86 Code: 8480-6 Heart Rate 1: 80 bpm Temperature: 36.8 (C) / 98.2 (F) Weight: 242 lbs Code: 10564-7 04/12/2010 Blood Pressure 1: 126/82 Code: 8480-6 Heart Rate 1: 72 bpm Temperature: 36.8 (C) / 98.2 (F) Weight: 237 lbs Code: 08528-4 03/20/2010 Blood Pressure 1: 124/78 Code: 8480-6 Heart Rate 1: 76 bpm Temperature: 36.1 (C) / 97.0 (F) Weight: 239 lbs Code: 97165-4 01/30/2010 Blood Pressure 1: 118/80 Code: 8480-6 Heart Rate 1: 84 bpm Temperature: 37.1 (C) / 98.7 (F) Weight: 239 lbs Code: 97826-2 01/09/2010 Blood Pressure 1: 120/72 Code: 8480-6 BMI: 36.8 Code: 38048-9 Heart Rate 1: 80 bpm Height: 5'7" Code: 8302-2 Temperature: 36.1 (C) / 97.0 (F) Weight: 235 lbs Code: 31206-4 11/07/2009 Blood Pressure 1: 140/36 Cod e: 8480-6 10/26/2009 Blood Pressure 1: 126/82 Code: 8480-6 BMI: 36.9 Code: 14808-8 Heart Rate 1: 84 bpm Height: 5'7" Code: 8302-2 Temperature: 36.5 (C) / 97.7 (F) Weight: 234 lbs Code: 32958-5 10/17/2009 Blood Pressure 1: 140/88 Code: 8480-6 BMI: 36.3 Code: 38966-8 Heart Rate 1: 88 bpm Height: 5'7" Code: 8302-2 Temperature: 36.7 (C) / 98.0 (F) Weight: 232 lbs Code: 00165-3 10/04/2009 Blood Pressure 1: 140/90 Code: 8480-6 BMI: 36.3 Code: 56604-3 Heart Rate 1: 84 bpm Height: 5'7" Code: 8302-2 Temperature: 36.4 (C) / 97.6 (F) Weight: 232 lbs Code: 60207-3 09/21/2009 Blood Pressure 1: 136/82 Code: 8480-6 BMI: 36.3 Code: 47501-3 Heart Rate 1: 88 bpm Height: 5'7" Code: 8302-2 Temperature: 35.8 (C) / 96.4 (F) Weight: 232 lbs Code: 34633-9 Functional Status No Functional Status data Reason [...] 09/04/2011 chest congestion 09/04/2011 follow up 08/14/2011 [facility] 08/14/2011 venous thrombosis 08/14/2011 abdominal pain [...] Encounter Performer Location Location Address Codes Date ([id number]) OFFICE/OUTPATIENT VISIT EST Diagnosis: Dehydration[ICD10: E86.0] Diagnosis: Acute cystitis[ICD10: N30.00] Marlene VANESSA DO [employer] [address] [place] [id number] CPT-4: 93795 09/10/2022 ([id number]) OFFICE/OUTPATIENT VISIT EST Diagnosis: Acute cystitis[ICD10: N30.00] Marlene VANESSA DO [employer] [address] [place] [address] CPT-4: 62505 09/05/2022 ([id number]) OFFICE/OUTPATIENT VISIT EST Diagnosis: Degeneration of lumbar or lumbosacral intervertebral disc[ICD10: M51.37] Diagnosis: Cervicalgia[ICD10: M54.2] Marlene ELAM [employer] [address] [place] [address] CPT-4: 05534 08/30/2022 ([id number]) OFFICE/OUTPATIENT VISIT EST Diagnosis: Hypothyroidism[ICD10: E03.9] Diagnosis: Essential (primary) hypertension[ICD10: I10] Diagnosis: Mixed hyperlipidemia[ICD10: E78.2] Diagnosis: Stress at home[ICD10: F43.9] Jayna MORILLOLINE TracyPaige JANISER DO [address] [address] CPT-4: 92218 08/07/2022 ([id number]) OFFICE/OUTPATIENT VISIT EST Diagnosis: Acute cystitis[ICD10: N30.00] Marlene MolinaPaige ANDIE DO [address] [address] CPT-4: 83680 06/29/2022 ([id number]) OFFICE/OUTPATIENT VISIT EST Diagnosis: Depression[ICD10: F32.A] Diagnosis: Hypothyroidism[ICD10: E03.9] Jayna Oremarialuisa GUTIERREZ TracyPaige ANDIE DO [address] [address] CPT-4: 73223 05/28/2022 ([id number]) OFFICE/OUTPATIENT VISIT EST Diagnosis: Depression[ICD10: F32.A] Diagnosis: Fatigue[ICD10: R53.83] Diagnosis: Hypothyroidism[ICD10: E03.9] Diagnosis: Hyperglycemia[ICD10: R73.9] Jayna Jessicamarialuisa PUCKETT DO [address] [address] CPT-4: 87740 05/10/2022 ([id number]) OFFICE/OUTPATIENT VISIT EST Diagnosis: Migraine, intractable[ICD10: G43.919] Marlene VILLARREALEMILIO GERBER TracyPaige ANDIE DO [address] [address] CPT-4: 62124 04/18/2022 ([id number]) NURSE/OUTPATIENT VISIT EST Diagnosis: FLU VACCINE[ICD10: Z23] Jayna Jessicamarialuisa GUTIERREZ TracyPaige JESSICAND ER DO [address] [address] CPT-4: 85939 04/05/2022 ([id number]) OFFICE/OUTPATIENT VISIT EST Diagnosis: Allergic rhinitis[ICD10: J30.9] Diagnosis: Acute sinusitis[ICD10: J01.90] 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] Jayna Sanchez JESSICAMARIALUISA DO [address] [address] CPT-4: 39359 02/15/2022 ([id number]) Annual depression screening, 15 minutes Diagnosis: Encounter for general adult medical examination without abnormal findings[ICD10: Z00.00] Diagnosis: Essential (primary) hypertension[ICD10: I10] Diagnosis: Mixed hyperlipidemia[ICD10: E78.2] Diagnosis: Hypothyroidism, unspecified[ICD10: E03.9] Diagnosis: Chronic obstructive pulmonary disease, unspecified[ICD10: J44.9] Jayna VANESSA [address] [address] CPT-4: G0444 02/06/2022 ([id number]) OFFICE/OUTPATIENT VISIT EST Diagnosis: 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] Diagnosis: Vision changes[ICD10: H53.9] Latasha Rosashoa VANESSA [address] [address] CPT-4: 08291 02/01/2022 ([id number]) OFFICE/OUTPATIENT VISIT EST Diagnosis: Diarrhea[ICD10: R19.7] Diagnosis: Cough[ICD10: R05.9] Jayna VANESSA [address] [address] CPT-4: 47482 11/30/19 ([id number]) OFFICE/OUTPATIENT VISIT EST Diagnosis: Post-viral cough syndrome[ICD10: R05.8] Diagnosis: Otalgia of both ears[ICD10: H92.03] Diagnosis: Diarrhea[ICD10: R19.7] Jayna Villalba [address] [address] CPT-4: 62509 11/22/2021 ([id number]) OFFICE/OUTPATIENT VISIT EST Diagnosis: Diarrhea of presumed infectious origin[ICD10: R19.7] Diagnosis: Altered taste[ICD10: R43.2] Diagnosis: Chronic bronchitis[ICD10: J42] Diagnosis: History of recent pneumonia[ICD10: Z87.01] Latasha VANESSA DO [address] [address] CPT- 4: 81872 11/21/2021 ([id number]) OFFICE/OUTPATIENT VISIT EST Diagnosis: Serous otitis media[ICD10: H65.90] Diagnosis: Postnasal drip[ICD10: R09.82] Diagnosis: Pneumonia[ICD10: J18.9] Jayna BRUCE ER DO [address] [address] CPT-4: 15856 11/09/2021 ([id number]) NO CHARGE Diagnosis: Pneumonia[ICD10: J18.9] Diagnosis: Respiratory distress[ICD10: R06.03] Jayna BRUCEER DO [address] [address] CPT-4: 85266 10/31/2021 ([id number]) OFFICE/OUTPATIENT VISIT EST Diagnosis: Vertigo[ICD10: R42] Diagnosis: Nausea[ICD10: R11.0] Diagnosis: Pneumonia[ICD10: J18.9] Jayna BRUCE ER DO [address] [address] CPT-4: 61294 10/30/2021 ([id number]) OFFICE/OUTPATIENT VISIT EST Diagnosis: Cervicalgia[ICD10: M54.2] Jayna GREENBERG NDER DO [address] [address] CPT-4: 14435 09/05/2021 ([id number]) OFFICE/OUTPATIENT VISIT EST Diagnosis: 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] Diagnosis: Seronegative rheumatoid arthritis[ICD10: M06.00] Latasha VANESSA DO [address] [address] CPT- 4: 45323 08/24/2021 ([id number]) OFFICE/OUTPATIENT VISIT EST Diagnosis: Upper respiratory infection[ICD10: J06.9] Diagnosis: Contact with and (suspected) exposure to other viral communicable diseases[ICD10: Z20.828] Latasha VANESSA DO [address] [address] CPT-4: 83799 07/04/2021 ([id number]) NURSE/OUTPATIENT VISIT EST Diagnosis: FLU VACCINE[ICD10: Z23] Jayna JIANG [address] [address] CPT-4: 07561 03/29/2021 ([id number]) OFFICE/OUTPATIENT VISIT EST Diagnosis: Vasovagal episode[ICD10: R55] Diagnosis: Orthostatic hypotension[ICD10: I95.1] Latasha VANESSA DO [address] [address] CPT-4: 38226 03/01/2021 ([id number]) OFFICE/OUTPATIENT VISIT EST Diagnosis: Sebaceous cyst of right axilla[ICD10: L72.3] Latasha VANESSA DO [address] [address] CPT- 4: 56089 02/08/2021 ([id number]) OFFICE/OUTPATIENT VISIT EST Diagnosis: Contact dermatitis[ICD10: L25.9] Jayna VANESSA DO [address] [address] CPT-4: 66093 01/19/2021 ([id number]) OFFICE/OUTPATIENT VISIT EST Diagnosis: Upper respiratory infection[ICD10: J06.9] Diagnosis: COPD exacerbation[ICD10: J44.1] Latasha VANESSA DO [address] [address] CPT-4: 96061 11/29/2020 ([id number]) OFFICE/OUTPATIENT VISIT EST Diagnosis: Sinusitis[ICD10: J32.9] Diagnosis: Acute pansinusitis, recurrence not specified[ICD10: J01.40] Latasha VANESSA DO [facility] [address] [place] [address] CPT-4: 99444 09/29/2020 OFFICE/OUTPATIENT VISIT EST Diagnosis: Other seasonal allergic rhinitis[ICD10: J30.2] Diagnosis: Chronic bronchitis[ICD10: J42] Diagnosis: 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] Diagnosis: Middle ear effusion[ICD10: H65.90] Diagnosis: Fluid level behind tympanic membrane of both ears[ICD10: H65.93] Latasha VANESSA DO [facility] [address] [place] [address] CPT-4: 96153 09/19/2020 ([id number]) OFFICE/OUTPATIENT VISIT EST Diagnosis: Right-sided tinnitus[ICD10: H93.11] Jayna VANESSA DO [address] [address] CPT-4: 24336 08/10/2020 ([id number]) OFFICE/OUTPATIENT VISIT EST Diagnosis: Dysfunction of right eustachian tube[ICD10: H69.81] Diagnosis: Right-sided tinnitus[ICD10: H93.11] [facility] [address] [place] [address] CPT-4: 97334 2020 ([id number]) OFFICE/OUTPATIENT VISIT EST Diagnosis: Pyelonephritis[ICD10: N12] Diagnosis: Anemia[ICD10: D64.9] Diagnosis: Blood in stool[ICD10: K92.1] Jayna VANESSA DO [facility] [address] [place] [address] CPT-4: 01452 07/13/2020 ([id number]) OFFICE/OUTPATIENT VISIT EST Diagnosis: Acute gastroenteritis[ICD10: K52.9] Jayna VANESSA DO [facility] [address] [place] [address] CPT-4: 86470 07/05/2020 ([id number]) OFFICE/OUTPATIENT VISIT EST Diagnosis: Essential hypertension[ICD10: I10] Diagnosis: Hypothyroidism, unspecified[ICD10: E03.9] Diagnosis: Metabolic syndrome[ICD10: E88.81] Diagnosis: Mixed hyperlipidemia[ICD10: E78.2] Diagnosis: Jyanp-9-tfeyevptkbv 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] Jayna GREENBERGNDAPOLINAR [address] [address] CPT- 4: 70479 06/22/2020 ([id number]) OFFICE/OUTPATIENT VISIT EST Diagnosis: Urinary tract infection[ICD10: N39.0] Jayna VILLARREALEMILIO BUZZ VANESSA [address] [address] CPT-4: 39112 05/17/2020 ([id number]) OFFICE/OUTPATIENT VISIT EST Diagnosis: Right pulmonary embolus[ICD10: I26.99] Jayna Vanessa NORRIS StonerBUZZ SPaige GREENBERGNDER [address] [address] CPT-4: 77563 03/14/2020 ([id number]) OFFICE/OUTPATIENT VISIT EST Diagnosis: COVID-19[ICD10: U07.1] Diagnosis: Pneumonia[ICD10: J18.9] Diagnosis: Dyspnea[ICD10: R06.00] Jayna Villalba [address] [address] CPT-4: 58122 03/07/2020 ([id number]) OFFICE/OUTPATIENT VISIT EST Diagnosis: Upper respiratory infection[ICD10: J06.9] Genesis Jolene MUNOZBUZZ S. ORENDER DO [address] [address] CPT-4: 82703 02/11/2020 ([id number]) OFFICE/OUTPATIENT VISIT EST Diagnosis: Dermatitis[ICD10: L30.9] Diagnosis: Urticaria[ICD10: L50.9] Jayna Oreleydaapolinar [facility] [address] [place] [address] CPT-4: 32503 09/29/2019 ([id number]) OFFICE/OUTPATIENT VISIT EST Diagnosis: Bone spur of right foot[ICD10: M77.51] Diagnosis: Recurrent UTI[ICD10: N39.0] Diagnosis: MRSA (methicillin resistant staph aureus) culture positive[ICD10: Z22.322] [facility] [address] [place] [address] CPT-4: 26145 09/14/2019 ([id number]) NURSE/OUTPATIENT VISIT EST Diagnosis: Urinary tract infection[ICD10: N39.0] Jayna VANESSA DO [facility] [address] [place] [address] CPT-4: 40376 09/11/2019 ([id number]) NURSE/OUTPATIENT VISIT EST Diagnosis: Urinary tract infection, site not specified[ICD10: N39.0] Jayna VANESSA DO [address] [address] CPT-4: 90702 09/08/2019 ([id number]) NURSE/OUTPATIENT VISIT EST Diagnosis: Urinary tract infection, site not specified[ICD10: N39.0] Jayna VANESSA DO [facility] [address] [place] [address] CPT-4: 43895 09/07/2019 ([id number]) OFFICE/OUTPATIENT VISIT EST Diagnosis: Pelvic pain in female[ICD10: R10.2] Diagnosis: Urinary frequency[ICD10: R35.0] Genesis VANESSA DO [facility] [address] [place] [address] CPT-4: 48867 09/02/2019 ([id number]) OFFICE/OUTPATIENT VISIT EST Diagnosis: Sinusitis[ICD10: J32.9] Genesis BRUCE ER DO [facility] [address] [place] [address] CPT-4: 21442 07/09/2019 ([id number]) OFFICE/OUTPATIENT VISIT EST Diagnosis: UTI (urinary tract infection)[ICD10: N39.0] Diagnosis: FLU VACCINE[ICD10: Z23] [facility] [address] [place] [address] CPT-4: 49663 04/15/2019 ([id number]) OFFICE/OUTPATIENT VISIT EST Diagnosis: Pain in right leg[ICD10: M79.604] Genesis [facility] [address] [place] [address] CPT-4: 80990 04/07/2019 ([id number]) OFFICE/OUTPATIENT VISIT EST Diagnosis: Diverticulitis of large intestine without perforation or abscess without bleeding[ICD10: K57.32] Diagnosis: Cystitis[ICD10: N30.90] Jayna [facility] [address] [place] [address] CPT-4: 88684 03/25/2019 ([id number]) OFFICE/OUTPATIENT VISIT EST Diagnosis: Abdominal pain[ICD10: R10.9] Diagnosis: Cystitis[ICD10: N30.90] Jayna [facility] [address] [place] [address] CPT-4: 10785 03/18/2019 ([id number]) OFFICE/OUTPATIENT VISIT EST Diagnosis: Diverticulitis of large intestine without perforation or abscess without bleeding[ICD10: K57.32] Diagnosis: Generalized abdominal pain[ICD10: R10.84] Diagnosis: Urinary tract infection, site not specified[ICD10: N39.0] [facility] [address] [place] [address] CPT-4: 42401 01/26/2019 ([id number]) OFFICE/OUTPATIENT VISIT EST Diagnosis: Mild intermittent asthma with (acute) exacerbation[ICD10: J45.21] Diagnosis: Allergic rhinitis due to pollen[ICD10: J30.1] Jayna [facility] [address] [place] [address] CPT- 4: 87221 01/08/2019 ([id number]) OFFICE/OUTPATIENT VISIT EST Diagnosis: Mild intermittent asthma with (acute) exacerbation[ICD10: J45.21] Diagnosis: URI, ACUTE[ICD10: J06.9] Diagnosis: Urinary tract infection, site not specified[ICD10: N39.0] Jayna VANESSA DO [facility] [address] [place] [address] CPT-4: 69099 01/06/2019 ([id number]) OFFICE/OUTPATIENT VISIT EST Diagnosis: Benign paroxysmal vertigo, bilateral[ICD10: H81.13] Diagnosis: Migraine without aura, not intractable, without status migrainosus[ICD10: G43.009] Jayna VANESSA DO [facility] [address] [place] [address] CPT-4: 61134 10/30/2018 ([id number]) OFFICE/OUTPATIENT VISIT EST Diagnosis: Acute bronchitis, unspecified[ICD10: J20.9] Diagnosis: Cough[ICD10: R05] Diagnosis: Other seasonal allergic rhinitis[ICD10: J30.2] Stacey VANESSA DO [address] [address] CPT- 4: 43820 10/07/2018 ([id number]) OFFICE/OUTPATIENT VISIT EST Diagnosis: Pain in unspecified joint[ICD10: M25.50] Diagnosis: Pain in right ankle and joints of right foot[ICD10: M25.571] Diagnosis: Other specified disorders of bone density and structure, unspecified site[ICD10: M85.80] Jayna Andie MORILLOLINE Daniel VANESSA DO [address] [address] CPT-4: 39695 06/23/2018 ([id number]) OFFICE/OUTPATIENT VISIT EST Diagnosis: Hypothyroidism, unspecified[ICD10: E03.9] Diagnosis: Mixed hyperlipidemia[ICD10: E78.2] Jayna Andie CHERELLEMINTAMI ALVARENGA Daniel VANESSA DO [address] [address] CPT-4: 57870 01/16/2018 ([id number]) OFFICE/OUTPATIENT VISIT EST Diagnosis: Cervicalgia[ICD10: M54.2] Genesis ELAM DO [address] [address] CPT-4: 49598 10/16/2017 ([id number]) OFFICE/OUTPATIENT VISIT EST Diagnosis: Headache[ICD10: R51] Diagnosis: Dizziness and giddiness[ICD10: R42] Jayna Andie FLAKITO GREENBERGNDER DO [address] [address] CPT-4: 53284 09/12/2017 OFFICE/OUTPATIENT VISIT EST Diagnosis: Cough[ICD10: R05] Genesis BRUCEER DO [facility] [address] [place] [address] CPT-4: 61824 08/20/2017 ([id number]) OFFICE/OUTPATIENT VISIT EST Diagnosis: COUGH[ICD10: R05] Jayna BRUCEER DO [address] [address] CPT-4: 59496 08/13/19 ([id number]) OFFICE/OUTPATIENT VISIT EST Diagnosis: Acute bronchospasm[ICD10: J98.01] Jayna Orendapolinar GREENBERGNDER DO [address] [address] CPT-4: 68663 07/29/2017 OFFICE/OUTPATIENT VISIT EST Diagnosis: Influenza due to identified novel influenza A virus with other respiratory manifestations[ICD10: J09.X2] Genesis [facility] [address] [place] [address] CPT-4: 17466 07/25/2017 ([id number]) OFFICE/OUTPATIENT VISIT EST Diagnosis: Pain in unspecified joint[ICD10: M25.50] Jayna [facility] [address] [place] [address] CPT- 4: 17978 06/10/2017 OFFICE/OUTPATIENT VISIT EST Diagnosis: Acute bronchitis, unspecified[ICD10: J20.9] Genesis VANESSA [address] [address] CPT- 4: 78556 05/28/2017 ([id number]) OFFICE/OUTPATIENT VISIT EST Diagnosis: Hypothyroidism, unspecified[ICD10: E03.9] Diagnosis: Mixed hyperlipidemia[ICD10: E78.2] Diagnosis: Kiwsb-6-livvyaolsvz 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] Diagnosis: Sebaceous cyst[ICD10: L72.3] Jayna Bruceapolinar JAYNA Daniel VANESSA [address] [address] CPT-4: 71165 11/28/2016 ([id number]) OFFICE/OUTPATIENT VISIT EST Diagnosis: Right upper quadrant pain[ICD10: R10.11] Diagnosis: Epigastric pain[ICD10: R10.13] Jayan Jessicamarialuisa JAYNA Tracy Paige ANDIE [address] [address] CPT-4: 27539 06/05/2016 ([id number]) OFFICE/OUTPATIENT VISIT EST Diagnosis: FLU VACCINE[ICD10: Z23] Jayna MORILLOLINE Daniel JIANG [address] [address] CPT-4: 68317 05/01/2016 OFFICE/OUTPATIENT VISIT EST Diagnosis: Hypothyroidism, unspecified[ICD10: E03.9] Diagnosis: Type 1 diabetes mellitus without complications[ICD10: E10.9] Diagnosis: Mixed hyperlipidemia[ICD10: E78.2] Diagnosis: Essential (primary) hypertension[ICD10: I10] Diagnosis: Mixed incontinence[ICD10: N39.46] Jayna Jessicamarialuisa Thomas TracyPaige ANDIE SAEZ [address] [address] CPT-4: 08463 11/08/2015 ([id number]) OFFICE/OUTPATIENT VISIT EST Diagnosis: Hypothyroidism, unspecified[ICD10: E03.9] Diagnosis: Other fatigue[ICD10: R53.83] Jayna GUTIERREZ Daniel VANESSA [address] [address] CPT-4: 84741 07/19/2015 ([id number]) OFFICE/OUTPATIENT VISIT EST Diagnosis: Hypothyroidism, unspecified[ICD10: E03.9] Diagnosis: Mixed hyperlipidemia[ICD10: E78.2] Diagnosis: Metabolic syndrome[ICD10: E88.81] Diagnosis: Right lower quadrant abdominal tenderness[ICD10: R10.813] Diagnosis: FLU VACCINE[ICD10: Z23] Jayna BRUCE [address] [address] CPT-4: 78392 03/28/2015 ([id number]) OFFICE/OUTPATIENT VISIT EST Diagnosis: MALAISE AND FATIGUE[ICD9: 780.79] Diagnosis: DEPRESSIVE DISORDER NEC[ICD9: 311] Diagnosis: HYPOTHYROIDISM[ICD9: 244.9] Diagnosis: PNEUMOCOCCAL VACCINE[ICD10: Z23] Jayna BRU[address] [address] CPT-4: 80100 02/08/2015 ([id number]) OFFICE/OUTPATIENT VISIT EST Diagnosis: MALAISE AND FATIGUE[ICD9: 780.79] Diagnosis: DEPRESSIVE DISORDER NEC[ICD9: 311] Diagnosis: HYPOTHYROIDISM[ICD9: 244.9] Diagnosis: ARTHRALGIA-MULTIPLE SITES[ICD9: 719.49] Jayna [address] [address] CPT-4: 52811 01/11/2015 ([id number]) OFFICE/OUTPATIENT VISIT EST 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] Diagnosis: - I - HYPOTHYROIDISM[ICD9: 244.9] Diagnosis: COUGH[ICD10: R05] Diagnosis: ALLERGIC RHINITIS[ICD9: 477.9] Diagnosis: Lumbar degenerative disc disease[ICD9: 722.52] Jayna VANESSA [address] [address] CPT- 4: 65313 11/24/2014 ([id number]) OFFICE/OUTPATIENT VISIT EST Diagnosis: Allergic reaction[ICD9: 995.3] Galina Dafne JAYNA VANESSA DO [employer] [address] [place] [address] CPT-4: 54812 11/19/2014 ([id number]) OFFICE/OUTPATIENT VISIT EST Diagnosis: ALLERGIC RHINITIS[ICD9: 477.9] Diagnosis: WHEEZING[ICD9: 786.07] Diagnosis: URINARY TRACT INFECTION[ICD9: 599.0] Diagnosis: Right flank pain[ICD9: 789.09] Conchita BRUCEER DO [employer] [address] [place] [address] CPT-4: 93777 10/27/2014 ([id number]) OFFICE/OUTPATIENT VISIT EST Diagnosis: URINARY TRACT INFECTION[ICD9: 599.0] Diagnosis: Flank pain[ICD9: 789.09] Conchita CARTER DO [address] [address] CPT-4: 88666 09/23/2014 ([id number]) OFFICE/OUTPATIENT VISIT EST Diagnosis: HYPERTENSION[ICD9: 401.9] Diagnosis: - I - HYPOTHYROIDISM[ICD9: 244.9] Diagnosis: HYPERLIPIDEMIA NEC/NOS[ICD9: 272.4] Diagnosis: DYSMETABOLIC SYNDROME X[ICD9: 277.7] Jayna VANESSA DO [address] [address] CPT-4: 59217 07/28/2014 OFFICE/OUTPATIENT VISIT EST Diagnosis: HYPERTENSION[ICD9: 401.9] Diagnosis: GROSS HEMATURIA[ICD9: 599.71] Jayna VANESSA DO [employer] [address] [place] [address] CPT-4: 31491 03/30/2014 ([id number]) OFFICE/OUTPATIENT VISIT EST 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 ORE NDER DO [address] [address] CPT-4: 29335 11/24/2013 ([id number]) OFFICE/OUTPATIENT VISIT EST 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 O RENDER DO [address] [address] CPT-4: 60407 08/25/2013 OFFICE/OUTPATIENT VISIT EST Diagnosis: DEPRESSIVE DISORDER NEC[ICD9: 311] Jayna ALVARENGA S. ORENDER DO [address] [address] CPT-4: 67464 06/29/2013 OFFICE/OUTPATIENT VISIT EST Diagnosis: DEPRESSIVE DISORDER NEC[ICD9: 311] Jayna ALVARENGA S. ORENDER DO [address] [address] CPT-4: 66519 05/26/2013 ([id number]) OFFICE/OUTPATIENT VISIT EST Diagnosis: BRONCHITIS, ACUTE[ICD9: 466.0] Diagnosis: HYPOTHYROIDISM[ICD9: 244.9] Diagnosis: HYPERLIPIDEMIA NEC/NOS[ICD9: 272.4] Diagnosis: Shoulder pain[ICD9: 719.41] Jayna Jessicamarialuisa GUTIERREZ S. O RENDER DO [address] [address] CPT-4: 79024 05/06/2013 ([id number]) OFFICE/OUTPATIENT VISIT EST Diagnosis: BRONCHITIS, ACUTE[ICD9: 466.0] Diagnosis: SINUSITIS, ACUTE[ICD9: 461.9] Jayna GUTIERREZ S. ORENDER DO [address] [address] CPT-4: 44000 04/23/2013 ([id number]) OFFICE/OUTPATIENT VISIT EST Diagnosis: DYSPNEA[ICD9: 786.09] Diagnosis: EDEMA[ICD9: 782.3] Diagnosis: [id number]-[id number] DEFICIENCY[ICD9: 273.4] Diagnosis: COUGH[ICD9: 786.2] Jayna VANESSA DO [address] [address] CPT-4: 36918 03/31/20 13 OFFICE/OUTPATIENT VISIT EST Diagnosis: Chest pain[ICD9: 786.50] Diagnosis: ANXIETY STATE NOS[ICD9: 300.00] Conchita VANESSA DO [address] [address] CPT-4: 25388 03/05/2013 ([id number]) OFFICE/OUTPATIENT VISIT EST Diagnosis: HYPERLIPIDEMIA NEC/NOS[ICD9: 272.4] Diagnosis: HYPOTHYROIDISM[ICD9: 244.9] Diagnosis: Tyzpp-5-rqdpmqxmbud deficiency[ICD9: 273.4] Diagnosis: ALLERGIC RHINITIS[ICD9: 477.9] Jayna VANESSA DO [address] [address] CPT-4: 93662 02/04/2013 ([id number]) OFFICE/OUTPATIENT VISIT EST Diagnosis: COUGH[ICD9: 786.2] Diagnosis: ALLERGIC RHINITIS[ICD9: 477.9] Jayna VANESSA DO [address] [address] CPT-4: 61076 11/27/2012 ([id number]) OFFICE/OUTPATIENT VISIT EST Diagnosis: COUGH[ICD9: 786.2] Diagnosis: DYSPNEA[ICD9: 786.09] Jayna VANESSA DO [address] [address] CPT-4: 16833 11/11/2012 ([id number]) OFFICE/OUTPATIENT VISIT EST Diagnosis: ABDOMINAL PAIN[ICD9: 789.00] Diagnosis: DIARRHEA[ICD9: 787.91] Diagnosis: COUGH[ICD9: 786.2] Jayna VANESSA DO [address] [address] CPT-4: 77587 10/21/19 13 OFFICE/OUTPATIENT VISIT EST Diagnosis: COUGH[ICD9: 786.2] Diagnosis: SINUSITIS, ACUTE[ICD9: 461.9] Diagnosis: PHARYNGITIS, ACUTE[ICD9: 462] Jayna MORILLOLINE TracyPaige ANDIE [address] [address] CPT-4: 72500 09/03/2012 OFFICE/OUTPATIENT VISIT EST Diagnosis: ABDOMINAL PAIN[ICD9: 789.00] Diagnosis: Diarrhea[ICD9: 787.91] Jayna Jessicamarialuisa GUTIERREZ TracyPaige BIANCA Villalba DO [address] [address] CPT-4: 08926 07/23/2012 ([id number]) OFFICE/OUTPATIENT VISIT EST Diagnosis: DM 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 TYPE II, UNCONTROLLED[ICD9: 250.02] Diagnosis: HYPERLIPIDEMIA NEC/NOS[ICD9: 272.4] Diagnosis: GERD[ICD9: 530.81] Jayna Jessicamarialuisa GUTIERREZ TracyPaige ANDIE [address] [address] CPT-4: 32136 05/20/20 OFFICE/OUTPATIENT VISIT EST Diagnosis: DERMATITIS NOS[ICD9: 692.9] Galina GUTIERREZ TracyPaige PUCKETT [address] [address] CPT-4: 81276 04/04/2012 ([id number]) OFFICE/OUTPATIENT VISIT EST Diagnosis: HYPERLIPIDEMIA NEC/NOS[ICD9: 272.4] Diagnosis: HYPOTHYROIDISM[ICD9: 244.9] Diagnosis: DYSMETABOLIC SYNDROME X[ICD9: 277.7] Jayna Jessicamarialuisa QUEZADA TracyPaige ANDIE [address] [address] CPT-4: 45652 01/02/2012 OFFICE/OUTPATIENT VISIT EST Diagnosis: COUGH[ICD9: 786.2] Diagnosis: SINUSITIS, ACUTE[ICD9: 461.9] Lizzie GUTIERREZ TracyPaige ANDIE [address] [address] CPT-4: 74712 09/04/2011 OFFICE/OUTPATIENT VISIT EST Diagnosis: Diverticulitis[ICD9: 562.11] Diagnosis: THROMBOPHLEBITIS[ICD9: 451.9] Jayna VANESSA DO [address] [address] CPT-4: 22692 08/14/2011 OFFICE/OUTPATIENT VISIT EST Diagnosis: COUGH[ICD9: 786.2] Jayna VANESSA DO [address] [address] CPT-4: 96968 07/25/19 12 OFFICE/OUTPATIENT VISIT EST Diagnosis: HYPOTHYROIDISM[ICD9: 244.9] Diagnosis: HYPERLIPIDEMIA NEC/NOS[ICD9: 272.4] Diagnosis: Total knee replacement status[ICD9: V43.65] Jayna VANESSA DO [address] [address] CPT- 4: 64844 07/12/2011 OFFICE/OUTPATIENT VISIT EST Diagnosis: BRONCHITIS, ACUTE[ICD9: 466.0] Diagnosis: COUGH[ICD9: 786.2] Jayna VANESSA DO [address] [address] CPT-4: 48443 05/09/20 11 OFFICE/OUTPATIENT VISIT EST Diagnosis: BRONCHITIS, ACUTE[ICD9: 466.0] Diagnosis: ASTHMA NOS[ICD9: 493.90] Diagnosis: Pleurisy[ICD9: 511.0] Jayna VANESSA DO [address] [address] CPT-4: 86745 05/02/2011 OFFICE/OUTPATIENT VISIT EST Diagnosis: COUGH[ICD9: 786.2] Jayna VANESSA DO [address] [address] CPT-4: 07365 04/25/20 11 OFFICE/OUTPATIENT VISIT EST Diagnosis: COUGH[ICD9: 786.2] Diagnosis: SINUSITIS, ACUTE[ICD9: 461.9] Jayna VANESSA [address] [place] [address] CPT-4: 64123 04/04/2011 OFFICE/OUTPATIENT VISIT EST Diagnosis: HYPOTHYROIDISM[ICD9: 244.9] Diagnosis: Knee osteoarthritis[ICD9: 715.96] Jaynaparam Vanessa [facility] [address] [place] [phone] CPT-4: 82656 03/01/2011 OFFICE/OUTPATIENT VISIT EST Jayna Jessicaleydaapolinar [facility] [address] [place] [phone] CPT-4: 11910 01/04/2011 ([id number]) OFFICE/OUTPATIENT VISIT EST Jayna Jessicaleydaapolinar [facility] [address] [place] [phone] CPT-4: 71926 12/07/2010 ([id number]) OFFICE/OUTPATIENT VISIT EST Jayna Jessicamarialuisa [facility] [address] [place] [phone] CPT-4: 61860 10/09/2010 ([id number]) OFFICE/OUTPATIENT VISIT EST Jayna Andie [facility] [address] [place] [phone] CPT-4: 33503 08/07/2010 ([id number]) OFFICE/OUTPATIENT VISIT, EST Jayna Jessicamarialuisa SAM [facility] [address] [place] [phone] CPT-4: 09096 06/06/2010 ([id number]) OFFICE/OUTPATIENT VISIT, EST Jayna Jessicamarialuisa [facility] [address] [place] [phone] CPT-4: 11399 03/20/2010 ([id number]) OFFICE/OUTPATIENT VISIT, EST Jayna [facility] [address] [place] [phone] CPT-4: 57467 01/30/2010 ([id number]) OFFICE/OUTPATIENT VISIT, EULOGIO VANESSA DO [facility] [address] [place] [address] CPT-4: 68036 01/09/2010 ([id number]) OFFICE/OUTPATIENT VISIT, EULOGIO VANESSA DO [facility] [address] [place] [address] CPT-4: 04813 10/26/2009 ([id number]) OFFICE/OUTPATIENT VISIT, EULOGIO VANESSA DO [facility] [address] [place] [phone] CPT-4: 86315 10/18/19 10 ([id number]) OFFICE/OUTPATIENT VISIT, EULOGIO VANESSA DO [facility] [address] [place] [phone] CPT-4: 15862 10/04/2009 ([id number]) OFFICE/OUTPATIENT VISIT, EULOGIO VANESSA DO [facility] [address] [place] [phone] CPT-4: 82213 09/21/2009 Plan of Care Planned Activity Notes Codes Status Date Visit Diagnosis Plan: Acute cystitis Discussion: NOT r esponding to Macrobid-- resistant to multiple oral antibiotics. Consulted with Dr. Vanessa and agreeable with direct admit for IVF and antibiotics. Patient will be admitted to [address] [place] [address]-- #415. ICD-9 : 595.0 ICD-10 : N30.00 [...] 09/05/2022 Appointment: Marlene Staples WPtel: [phone] [phone] ACUTE ILLNESS 09/05/2022 Patient Education: Patient Medication [...] M51.37 08/30/2022 Appointment: Marlene Staples WPtel: [phone] [phone] FOLLOW UP 08/30/2022 Patient Education: Patient Medication Summary Completed 08/30/2022 Visit Diagnosis Plan: Discussion: Stable Labs disc ussed 08/07/2022 Visit Diagnosis Plan: Essential (primary) hypertension Discussion: Stable ICD-9 : 401.9 ICD-10 : I10 08/07/2022 Visit Diagnosis Plan: Discussion: Update lipids 08/07/2022 Visit Diagnosis Plan: Stress at home Discussion: With 's health ICD-9 : V61.9 ICD-10 : F43.9 08/07/2022 Appointment: Jayna Vanessa WPtel: [address] [phone] FOLLOW UP 08/07/2022 Visit Diagnosis Plan: [...] N30.00 06/29/2022 Appointment: Marlene Staples WPtel: [address] [phone] ACUTE ILLNESS 06/29/2022 Patient Education: ciprofloxacin HCl- OptimizeRX Coupon [id number] Completed 06/29/2022 Visit Diagnosis Plan: Depression Discussion: Increase Wellbutrin XL to 300mg po qAM Fwup 2 mos ICD-9 : 311 ICD-10 : F32.A 05/28/2022 Visit Diagnosis Plan: Hypothyroidism Discussion: Labs discussed Decrease levothyroxine to 150mcg 6 days a week and repeat thyroid lab in 2mos ICD-9 : 244.9 ICD-10 : E03.9 05/28/2022 Appointment: Jayna Vanessa WPtel: [address] [phone] US FOLLOW UP 05/28/2022 Visit Diagnosis [...] R73.9 05/10/2022 Appointment: Jayna Vanessa WPtel: [address] [phone] US FOLLOW UP 05/10/2022 Visit Diagnosis Plan: Migraine, intractable Discussion : Toradol 30mg IM x1 given in clinic. Start Rizatriptan-- discussed on how to use and may repeat x1 dose 2 hours later. Restart propranolol for migraine prevention. Notify clinic if migraine not improving. ICD-9 : 346.91 ICD-10 : G43.919 04/18/2022 Appointment: Mar[facility] Staples [facility]el[facility] [address] [facility] AC[facility] I[facility] 04/18/2022 Patient Education: propranolol- OptimizeRX Coupon [phone] Completed 04/18/2022 [facility]ointment: [facility] [facility] [facility] INJECTION 04/05/2022 Appointment: Jayna Vanessa [facility]Ptel[facility] [address] [facility] US CANCELED 03/21/2022 Visit Diagnosis Plan: Acute [...] J30.9 02/15/2022 Appointment: Jayna [facility]essa [facility]Ptel[facility] [address] [facility] [place] ACUTE ILLNESS 02/15/2022 Patient Education: prednisone- OptimizeRX Coupon [phone] https://www.[employer]/samplemd/resources/getResource/61/[email or web address]-a648-4d09-af Completed 02/15/2022 Visit Diagnosis Plan: Hypothyroidism, unspecified Disc ussion: Stable ICD-9 : 244.9 ICD-10 : E03.9 02/06/2022 Visit Diagnosis Plan: Encounter for [facility] adult medical examination without abnormal findings [...] J44.9 02/06/2022 Appointment: Jayna Vanessa WPtel: [address] [phone] Annual Well Visit 02/06/2022 Care Plan: Annual depression screening, 15 minutes 02/06/2022 Visit Diagnosis Plan: 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 Patient declines- will get stat CT of the head, cbc, cmp, and ESR and fwup with results [facility] sample given ICD-9 : 346.03 ICD-10 : G43.111 02/01/2022 Appointment: Latasha Anand WPtel: [address] [phone] ACUTE ILLNESS 02/01/2022 Patient Education: Patient Medication [...] R19.7 11/29/2021 Appointment: Jayna Vanessa WPtel: [address] [phone] US FOLLOW UP 11/29/2021 Visit Diagnosis Plan: Diarrhea Discussion: C Diff nega tive Treat with diflucan and Restora-RX Fwup 1 week ICD-9 : 787.91 ICD-10 : R19.7 11/22/2021 Visit Diagnosis Plan: Post-viral cough syndrome Discus joaquín: Change albuterol to Breztri 2p BID Add singulair 10mg po q HS ICD-9 : 786.2 ICD-10 : R05.8 11/22/2021 Appointment: Jayna Vanessa WPtel: [address] [place], [place] [phone] ACUTE ILLNESS 11/22/2021 Patient Education: Carl Coats [phone] https://www.[employer]/samplemd/resources/getResource/61/8h39dbj3-7rfg-9683-2k Completed 11/22/2021 Visit Diagnosis Plan: Diarrhea of presumed infectious origin Discussion: Will check for c-diff due to recent antibiotics and foul smelling diarrhea ICD-9 : 009.3 ICD-10 : R19.7 11/21/2021 Visit Diagnosis Plan: History of recent pneumonia Disc ussion: Check cbc, cmp, ESR, and cxr now ICD-9 : V12.61 ICD-10 : Z87.01 11/21/2021 Appointment: Latasha Anand WPtel: [address] [place] [address] ACUTE ILLNESS 11/21/2021 Patient Education: Patient Medication Summary Completed 11/21/2021 Visit Diagnosis Plan: Pneumonia Discussion: Finish all abx and continue albuterol Fwup next week ICD-9 : 486 ICD-10 : J18.9 11/09/2021 Visit Diagnosis Plan: Serous otitis media Discussion: Kenalog 40mg with Dexamethasone 2mg IM now ICD-9 : 381.4 ICD-10 : H65.90 11/09/2021 Appointment: Jayna Vanessa WPtel: [address] [place], [place] [address] [facility] Follow Up 11/09/2021 Visit Diagnosis Plan: Pneumonia Discussion: Admit to h ospital ICD-9 : 486 ICD-10 : J18.9 10/31/2021 Appointment: Jayna Vanessa WPtel: [address] [place], [place] [phone] FOLLOW UP 10/31/2021 Visit Diagnosis Plan: Nausea [...] prn 10/30/2021 Appointment: Jayna Vanessa WPtel: [address] [phone] US ACUTE ILLNESS 10/30/2021 Visit Diagnosis Plan: Cervicalgia Discussion: Had x-ra ys done Kenalog 40mg IM now Baclofen prn Mobic for 1 week Topical muscle rube Moist heat and stretches shown Has PT sessions scheduled next week so will add in therapy for neck ICD-9 : 723.1 ICD-10 : M54.2 09/05/2021 Appointment: Jayna Vanessa WPtel: [phone] [phone] ACUTE ILLNESS 09/05/2021 Visit Diagnosis Plan: [...] 08/24/2021 Appointment: Lat[facility]and [facility]Ptel[facility] [phone] [facility] ACUTE ILLNESS 08/24/2021 Patient Education: Patient Medication Summary Completed 08/24/2021 Patient Education: prednisone- OptimizeRX Coupon [id number] Completed 08/24/2021 Visit Plan: Supportive care. Rest, [...] 07/04/2021 Appointment: Latasha Anand WPtel: [phone] [phone] US ACUTE ILLNESS 07/04/2021 Patient Education: Patient Medication Summary Completed 07/04/2021 Patient Education: Patient Medication Summary Completed 07/04/2021 Appointment: Latasha Anand WPtel: [phone] [phone] US NO SHOW 07/03/2021 Appointment: Latasha Anand WPtel: [phone] [phone] US patients issue resolved so moved to dr's schedule for his hospital [facility] (km) CANCELED 03/29/2021 Appointment: Jayna Vanessa WPtel: [address] [phone] US INJECTION 03/29/2021 Visit Diagnosis Plan: [...] 02/08/2021 Appointment: Kika Latasha WPtel: [address] [phone] ACUTE ILLNESS 02/08/2021 Patient Education: Patient Medication Summary Completed 02/08/2021 Visit Diagnosis Plan: Contact dermatitis Discussion: T opical TAC and prednisone Notify if persists or worsens ICD-9 : 692.9 ICD-10 : L25.9 01/19/2021 Appointment: Jayna Vanessa WPtel: [address] [phone] ACUTE ILLNESS 01/19/2021 Patient Education: prednisone- OptimizeRX Coupon [id number] Completed 01/19/2021 Patient Education: triamcinolone acetonide- OptimizeRX Coupon [phone] Completed 01/19/2021 Visit Diagnosis Plan: Hypothyroidism, unspecified Disc ussion: Increase levothyroxine to 150mcg po daily and recheck TSH and free T4 in 2mos ICD-9 : 244.9 ICD-10 : E03.9 01/03/2021 Visit Diagnosis Plan: Essential (primary) hypertension Discussion: Stable ICD-9 : 401.9 ICD-10 : I10 01/03/2021 Visit Diagnosis Plan: Encounter for [facility] adult medical examination without abnormal findings Discussion: Mediterranean diet Combinati on of cardio and weight bearing exercise Had Covid vaccines Lab discussed ICD-9 : V70.9 ICD-10 : Z00.00 01/03/2021 Visit Diagnosis Plan: Chronic obstructive pulmonary di sease, unspecified Discussion: Following with pulmonology ICD-9 : 496 ICD-10 : J44.9 01/03/2021 Appointment: Jayna Vanessa [facility]Ptel[facility] [address] [facility] Annual Well Visit 01/03/2021 Patient Education: levothyroxine- OptimizeRX Coupon [id number] https://www.[employer]/samplemd/resources/getResource/61/[email or web address]-b3 Completed 01/03/2021 Visit Diagnosis Plan: COPD exacerbation Discussion: Sa mple of breztri given. Prednisone 40 mg x 5 days for exacerbation- increased cough, shortness of breath, and phlegm. Promethazine DM cough syrup sent d/t frequent hacking cough that interrupts sleep. F/U for no improvement or any concerns. ICD-9 : 491.21 ICD-10 : J44.1 11/29/2020 Appointment: Latasha Anand WPtel: [phone] [phone] ACUTE ILLNESS 11/29/2020 Patient Education: Patient Medication Summary Completed 11/29/2020 Patient Education: prednisone- OptimizeRX Coupon [id number] Completed 11/29/2020 Patient Education: promethazine-DM- OptimizeRX Coupon [id number] Completed 11/29/2020 Visit Diagnosis Plan: Sinusitis Discussion: Will start doxycycline (pcn allergy). Sinus rinses. Tylenol/nsaids for headache/pain. Return to clinicif not improving/concerns. ICD-9 : 473.9 ICD-10 : J32.9 09/29/2020 Appointment: Latasha Anand WPtel: [phone] [phone] ACUTE ILLNESS 09/29/2020 Patient Education: Patient Medication Summary Completed 09/29/2020 Patient Education: doxycycline hyclate- OptimizeRX Coupon [phone] Completed 09/29/2020 Visit Diagnosis Plan: Other [...] 09/19/2020 Appointment: Latasha Anand WPtel: [phone] [phone] ACUTE ILLNESS 09/19/2020 Patient Education: Patient Medication Summary Completed 09/19/2020 Patient Education: ProAir HFA- OptimizeRX Coupon [id number] Completed 09/19/2020 Visit Diagnosis Plan: Right-sided tinnitus [...] : H93.11 08/10/2020 Appointment: Jayna Vanessa WPtel: [address] [place], [place] [phone] FOLLOW UP 08/10/2020 Patient Education: neomycin-polymyxin B-dexameth- Opti mizeRX Coupon [id number] https://www.[employer]/resources/getResource/61/dq693x45-w07w-4b35-xu Completed 08/10/2020 Visit Diagnosis Plan: Dysfunction of right eustachian tube Discussion: Naylay.ks video visit done Increase zyrtec to BID Increase flonase to BID Add prednisone To office at end of week to assess otoscope exam if persists ICD-9 : 381.81 ICD-10 : H69.81 08/01/2020 Appointment: Jayna Vanessa WPtel: [address] [place], [place] [phone] TELEMEDICINE 08/01/2020 Patient Education: prednisone- OptimizeRX Coupon [phone] https://www.[employer]/resources/getResource/61/[email or web address]-53 Completed 08/01/2020 Visit Diagnosis Plan: Pyelonephritis Discussion: Finis maría all abx Push fluids Check lab and repeat UA in 5 days--CBC, CMP, ESR ICD-9 : 590.80 ICD-10 : N12 07/13/2020 Appointment: Jayna Vanessa WPtel: [phone] [phone] Hospital Follow Up 07/13/2020 Visit Diagnosis Plan: Acute gastroenteritis Discussion : Telephone visit completed Clear liquid diet next 24-48hrs Flagyl to cover for colitis/diverticulitis Zofran prn Notify or to ER if worsening ICD-9 : 558.9 ICD-10 : K52.9 07/05/2020 Appointment: Jayna Vanessa WPtel: [address] [phone] TELEMEDICINE 07/05/2020 Patient Education: ondansetron HCl- OptimizeRX Coupon [id number] https://www.[employer]/resources/getResource/61/[email or web address]-863y-2l Completed 07/05/2020 Visit Diagnosis Plan: Metabolic syndrome Discussion: U pdate CMP, HBa1c ICD-9 : 277.7 ICD-10 : E88.81 06/22/2020 Visit Diagnosis Plan: Ewetz-7-mpncpfvwayq deficiency D iscussion: Following with pulmonology ICD-9 [...] : I10 06/22/2020 Appointment: Jayna Vanessa WPtel: [address] [place], [place] [phone] FOLLOW UP 06/22/2020 Visit Diagnosis Plan: Urinary tract infection Discussi on: Macrobid Diflucan Push water Notify if worsens ICD-9 : 599.0 ICD-10 : N39.0 05/17/2020 Appointment: Jayna Vanessa WPtel: [phone] ACUTE ILLNESS 05/17/2020 Patient Education: fluconazole- OptimizeRX Coupon [phone] https://www.[employer]/samplemd/resources/getResource/61/[email or web address]-0f Completed 05/17/2020 Visit Diagnosis Plan: Right pulmonary embolus Discussi on: Continue eliquis at 5mg po BID Has appointments pending with pulmonology and hematology Fwup after visits with both of these specialists ICD-9 : 415.19 ICD-10 : I26.99 03/14/2020 Appointment: Jayna Vanessa WPtel: [address] [place], [place] [phone] [facility] 03/14/20 on cell -- home phone had busy signal Hospital Follow Up 03/14/2020 Appointment: Jayna Vanessa WPtel: [address] [place], [place] [phone] I schedule patient by mistake ddo Scheduled [...] : R06.00 03/07/2020 Appointment: Jayna Vanessa WPtel: [address] [place], [place] [phone] ACUTE ILLNESS 03/07/2020 Care Plan: CT THORAX W/DYE LOINC : 39576 -6 Pending 03/07/2020 Appointment: Jayna Vanessa WPtel: [address] [place], [place] [phone] NO SHOW - FORGIVEN 03/02/2020 Visit Diagnosis Plan: Upper respiratory infection Disc ussion: patient's covid test was neg from several weeks ago. proair refilled to take as needed. medrol pack prescribed to cover for allergies since her symptoms began after being in [facility]. however, instructed patient that she needs to be checked again for coronavirus due to severity of her symptoms. patient [place] near [place] so informed her to go to [facility] walk in for testing. call ofice with new or worsening symptoms, otherwise push fluids. ICD-9 : 465.9 ICD-10 : J06.9 02/11/2020 Appointment: Genesis Fernández [address] [facility] 02/11/2020 Patient Education: ProAir HFA- OptimizeRX Coupon [id number] Completed 02/11/2020 Patient Education: Medrol (Isaiah)- OptimizeRX Coupon [phone] Completed 02/11/2020 Visit Diagnosis Plan: Hypothyroidism, unspecified [...] I10 12/21/2019 Visit Diagnosis Plan: Encounter for [facility] adult medical examination without abnormal findings Discussion: Mediterranean diet Combinati on of cardio and weight bearing exercise Lab discussed Last colonoscopy 3 years ago ICD-9 : V70.9 ICD-10 : Z00.00 12/21/2019 Appointment: Jayna Vanessa WPtel: [address] [facility] Annual Well Visit 12/21/2019 Care Plan: Referral Order SNOMED-CT : 30 2009146 Pending 12/21/2019 Visit Diagnosis Plan: Dermatitis Discussion: Doxy.me v ideo visit done Cover with Prednisone taper Use Zyrtec 10mg po q AM BID ICD-9 : 692.9 ICD-10 : L30.9 09/29/2019 Appointment: Jayna Vanessa WPtel: [address] [place], [place] [phone] US TELEMEDICINE 09/29/2019 Patient Education: prednisone- OptimizeRX Coupon [phone] https://www.[employer]/resources/getResource/61/[email or web address] Completed 09/29/2019 Visit Diagnosis Plan: Bone spur [...] : N39.0 09/14/2019 Appointment: Jayna Vanessa WPtel: [address] [place], [place] [phone] US TELEMEDICINE 09/14/2019 Appointment: Jayna Vanessa WPtel: [address] [place], [place] [phone] US LAB 09/11/2019 Appointment: Jayna Vanessa WPtel: [address] [place], [place] [phone] US 09/09/2019 1210--per Ally patient was to only have 1 injection, reculture urine on 09/11/19 (km) CANCELED 09/09/2019 Appointment: Jayna Vanessa WPtel: [address] [place], [place] [phone] US INJECTION 09/08/2019 Appointment: Jayna Vanessa WPtel: [address] [place], [place] [phone] US INJECTION 09/07/2019 Visit Diagnosis Plan: Urinary [...] ICD-10 : R35.0 09/02/2019 Appointment: Genesis Fernández [address] [place] [address] ACUTE ILLNESS 09/02/2019 Visit Diagnosis Plan: Sinusitis Discussion: instructed to start flonase daily and zyrtec daily. if no improvement next week, call clinic and may need further directions. instructed to use saline eye drops as needed to eyes to assist with dryness. ICD-9 : 473.9 ICD-10 : J32.9 07/09/2019 Appointment: Genesis Fernández [address] [place] [address] ACUTE ILLNESS 07/09/2019 Visit Diagnosis Plan: UTI (urinary tract infection) Di scussion: urine culture sent off. will start on macrobid due to symptoms. instructed to push fluids and chemo tomorrow with worsening symptoms. ICD-9 : 599.0 ICD-10 : N39.0 04/15/2019 Appointment: Jayna Vanessa WPtel: [address] [facility] [facility] INJECTION 04/15/2019 Appointment: Genesis Fernández [address] [place], [place] [phone] ACUTE ILLNESS 04/15/2019 Visit Diagnosis Plan: Pain in right leg Discussion: ke nalog/dexa given in office. continue with flexeril prn. PT was ordered for patient due to chronic issues. call office with worsening symptoms and may need imaging. ICD-9 : 729.5 ICD-10 : M79.604 04/07/2019 Appointment: Genesis Fernández [address] [place], [place] [phone] ACUTE ILLNESS 04/07/2019 Visit Diagnosis Plan: Diverticulitis of large intestine without perforation or abscess without bleeding Discussion: Patient will call when she g ets home and verify which antibiotics she has left--needs at least another week on flagyl and thinks she only took 1 week on that ICD-9 : 562.11 ICD-10 : K57.32 03/25/2019 Appointment: Jayna Vanessa WPtel: [address] [place] [phone] FOLLOW UP 03/25/2019 Visit Diagnosis Plan: Cystitis Discussion: Bactrim and culture urine ICD-9 : 595.9 ICD-10 : N30.90 03/18/2019 Visit Diagnosis Plan: Abdominal pain Discussion: Cover with flagyl for colitis Harlan diet To ER this weekend if worsening Fwup 1 week ICD-9 : 789.00 ICD-10 : R10.9 03/18/2019 Appointment: Jayna Vanessa WPtel: [address] [place] [phone] ACUTE ILLNESS 03/18/2019 Visit Diagnosis Plan: Urinary [...] ICD-10 : R10.84 01/26/2019 Appointment: Genesis Fernández [address] [place], [place] [phone] ACUTE ILLNESS 01/26/2019 Appointment: Jayna Vanessa WPtel: [address] [place] [phone] US CANCELED 01/12/2019 Visit Diagnosis Plan: Mild intermittent asthma with (a cute) exacerbation Discussion: Kenalog 40mg IM now Prednisone stating tomorrow Start Doxycycline tonight Continue SVNs with duoneb q4hrs To ER this weekend if worsening Call Saturday on how doing ICD-9 : 466.0 ICD-10 : J45.21 01/08/2019 Appointment: Jayna Vanessa WPtel: [address] [facility] FOLLOW UP 01/08/2019 Patient Education: prednisone- OptimizeRX Coupon [phone] https://www.[employer]/resources/getResource/61/92442002-k3do-7746-79 Completed 01/08/2019 Visit Diagnosis Plan: Mild intermittent asthma with (a cute) exacerbation Discussion: Solumedrol 125mg IM SVN with duoneb given Continue albuterol q4hrs CXR now Recheck tomorrow ICD-9 : 466.0 ICD-10 : J45.21 01/06/2019 Appointment: Jayna Vanessa WPtel: [address] [facility] ACUTE ILLNESS 01/06/2019 Visit Diagnosis Plan: Encounter for screening for roel gnant neoplasm of colon Discussion: positive for ob. will order ct abd/pelvis due to other findings and discussed with patient that may need to proceed with updated colonoscopy. patient verbalized understanding. ICD-9 : V76.51 ICD-10 : Z12.11 12/11/2018 Visit Diagnosis Plan: Encounter for [facility] adult medical examination with abnormal findings Discussion: [...] : N76.0 12/11/2018 Appointment: Genesis Fern[facility]dez [facility] [facility] Visit 12/11/2018 Care Plan: RML ASSAY THYROID STIM HORMONE Pending 12/04/2018 Care Plan: RML ASSAY OF FREE THYROXINE Pe nding 12/04/2018 Care Plan: RML A1C HPLC LOINC : 78729-6 Pending 12/04/2018 Care Plan: RML LIPID PANEL LOINC : 67862 -1 Pending 12/04/2018 Care Plan: RML COMPREHEN METABOLIC PANEL LOINC : 44795-4 Pending 12/04/2018 Care Plan: QUEST CBC (INCLUDES DIFF/PLT) LOINC : 24841-2 Pending 12/04/2018 Visit Diagnosis Plan: Benign paroxysmal vertigo, bilat eral Discussion: Meclizine Vestibular Exercises To ER if worsens or develops neurological symptoms or will need CT scan if persists/worsens ICD-9 : 386.11 ICD-10 : H81.13 10/30/2018 Appointment: Jayna Vanessa WPtel: [address] [place], [place] [phone] ACUTE ILLNESS 10/30/2018 Patient Education: VESTIBULAR EXCERCISES Completed 10/30/2018 Patient Education: meclizine- OptimizeRX Coupon [id number] Completed 10/30/2018 Appointment: Jayna Vanessa WPtel: [phone] US canceled due to huband going [...] ICD-10 : R05 10/07/2018 Appointment: Stacey Feng [facility] [address] ACUTE ILLNESS 10/07/2018 Patient Education: doxycycline hyclate- OptimizeRX Hansa jerald [id number] https://www.[employer]/samplemd/resources/getResource/61/e462vsm9-g667-853r-61 Completed 10/07/2018 Care Plan: RML ASSAY OF [...] : M85.80 06/23/2018 Appointment: Jayna Vanessa WPtel: [address] [place], [place] [phone] FOLLOW UP 06/23/2018 Appointment: Jayna Vanessa WPtel: [address] [place], [place] [phone] ER Follow UP 01/27/2018 Visit Diagnosis Plan: Hypothyroidism, unspecified Disc ussion: Lab discussed Increase Levothyroxine to 175mcg daily then recheck level in 6 weeks Follow Up: 6 weeks ICD-9 : 244.9 ICD-10 : E03.9 01/16/2018 Visit Diagnosis Plan: Mixed hyperlipidemia Discussion: Defers statin meds ICD-9 : 272.4 ICD-10 : E78.2 01/16/2018 Appointment: Jayna Vanessa WPtel: [address] [place] [phone] FOLLOW UP 01/16/2018 Patient Education: Patient Medication Summary Completed 01/16/2018 Patient Education: Patient Medication Summary Completed 01/15/2018 Care Plan: RML COMPREHEN METABOLIC PANEL LOINC : 63717-5 Pending 01/15/2018 Care Plan: RML ASSAY THYROID STIM HORMONE Pending 01/15/2018 Care Plan: RML ASSAY OF FREE THYROXINE Pe nding 01/15/2018 Care Plan: RML LIPID PANEL LOINC : 63228 -1 Pending 01/15/2018 Care Plan: CBC Pending 01/15/2018 Care Plan: RML A1C HPLC LOINC : 45981-8 Pending 01/15/2018 Appointment: Jayna Vanessa WPtel: [address] [place], [place] [phone] US CANCELED 12/26/2017 Appointment: Jayna Vanessa WPtel: [address] [place] [phone] US CANCELED 10/28/2017 Visit Diagnosis Plan: Cervicalgia Discussion: xray ord ered of cervical spine and right shoulder. 40 mg kenalog/15 mg toradol prescribed to assist with pain. medrol dose pack prescribed to start tomorrow. instructed patient that if she d evelops worsening pain or no improvement, call or rtc. ICD-9 : 723.1 ICD-10 : M54.2 10/16/2017 Appointment: Genesis Fernández [address] [place] [address] ACUTE ILLNESS 10/16/2017 Patient Education: Patient Medication Summary Completed 10/16/2017 Care Plan: X-RAY EXAM NECK SPINE 4/5VWS cervical LOINC : 75035-2 Pending 10/16/2017 Visit Diagnosis Plan: Headache Discussion: Stat CT of head Dilated eye exam ICD-9 : 784.0 ICD-10 : R51 09/12/2017 Visit Diagnosis Plan: Dizziness and giddiness Discussi on: Check CBC,TSH, Free T4 now ICD-9 : 780.4 ICD-10 : R42 09/12/2017 Appointment: Jayna Vanessa WPtel: [address] [place], [place] [phone] ACUTE ILLNESS 09/12/2017 Patient Education: Patient Medication Summary Completed 09/12/2017 Care Plan: CT HEAD/BRAIN W/O DYE LOINC : 07024-4 Pending 09/12/2017 Visit Diagnosis Plan: Cough Discussion: discussed cxra y and sputum results with patient and how they are negative for bacteria. patient restarted on her PPI to cover possiblity of GERD causing cough. instructed patient to contact her certified orthotic fitter in [place] for them to evaluate. rtc with any new or worsening symptoms but continue with inhaler and nebulizer treatments as needed. ICD-9 : 786.2 ICD-10 : R05 08/20/2017 Appointment: Genesis Fernández [address] [place] [address] FOLLOW UP 08/20/2017 Patient Education: Patient Medication Summary Completed 08/20/2017 Visit Diagnosis Plan: COUGH Discussion: Check stat CXR Check Sputum culture ICD-9 : 786.2 ICD-10 : R05 08/13/2017 Appointment: Jayna Vanessa WPtel: [address] [place], [place] [address] ACUTE ILLNESS 08/13/2017 Patient Education: Patient Medication [...] Rest, Fluids... 07/29/2017 Appointment: Jayna Vanessa WPtel: [facility] [place] [phone] ACUTE ILLNESS 07/29/2017 Patient Education: Patient Medication [...] : J09.X2 07/25/2017 Appointment: Genesis Fernández [address] ACUTE ILLNESS 07/25/2017 Patient Education: Patient [...] : M25.50 06/10/2017 Appointment: Jayna Vanessa WPtel: [address] [place], [place] [phone] ACUTE ILLNESS 06/10/2017 Patient Education: Patient Medication Summary Completed 06/10/2017 Appointment: Jayna Vanessa WPtel: [address] [place], [place] [phone] Does not need appointment CANCELED 2016 Appointment: Jayna Vanessa WPtel: [address] [place], [place] [phone] [place] CANCELED 05/30/2017 Visit Diagnosis Plan: Acute bronchitis, unspecified Di scussion: prednisone, zpack and tessalon perles prescribed to assist with symptoms. call or RTC if no improvement. humidifier at night. hydrate well and rest. discussed side effects from prednisone including increased blood sugars and instructed to monitor. ICD-9 : 490 ICD-10 : J20.9 05/28/2017 Appointment: Genesis Fernández 504 [facility] ACUTE ILLNESS 05/28/2017 Patient Education: Patient Medication Summary Completed 05/28/2017 Visit Diagnosis Plan: Type 2 diabetes mellitus without complications Discussion: Continue current meds accuchecks daily ICD-9 : 250.00 ICD-10 : E11.9 04/04/2017 Visit Diagnosis Plan: Encounter for [facility] adult medical examination without abnormal findings Discussion: Flu and Pneumovax given Mamm ogram ordered Lab discussed ICD-9 : V70.9 ICD-10 : Z00.00 04/04/2017 Appointment: Jayna Vanessa WPtel: [phone] [phone] Annual Well Visit 04/04/2017 Patient Education: Patient Medication Summary Completed 04/04/2017 Care Plan: MAMMOGRAM SCREENING LOINC : 2 6347-5 Pending 04/04/2017 Patient Education: Patient Medication Summary Completed 03/21/2017 Care Plan: RML COMPREHEN METABOLIC PANEL LOINC : 04977-4 Pending 03/21/2017 Care Plan: RML ASSAY THYROID STIM HORMONE Pending 03/21/2017 Care Plan: RML ASSAY OF FREE THYROXINE Pe nding 03/21/2017 Care Plan: CBC Pending 03/21/2017 Care Plan: RML A1C HPLC LOINC : 97785-3 Pending 03/21/2017 Visit Diagnosis Plan: Mixed hyperlipidemia Discussion: Continue current meds Follow Up: 6 months ICD-9 : 272.4 ICD-10 : E78.2 11/28/2016 Visit Diagnosis Plan: Hypothyroidism, unspecified Disc ussion: Continue current dose ICD-9 : 244.9 ICD-10 : E03.9 11/28/2016 Visit Diagnosis Plan: Otrms-1-qlmkcqmfone deficiency D iscussion: Continue weekly injections ICD-9 : 273.4 ICD-10 : E88.01 11/28/2016 Visit Diagnosis Plan: Sebaceous cyst Discussion: Emily daniel eanadine Discussed removal ICD-9 : 706.2 ICD-10 : L72.3 11/28/2016 Appointment: Jayna Vanessa WPtel: [address] [phone] 6/6 rang and rang on home phone and mobile confirmed~sl FOLLOW UP 11/28/2016 Patient Education: Patient Medication Summary Completed 11/28/2016 Patient Education: Patient Medication Summary Completed 11/20/2016 Referral: Tom Mcrae WPtel: [address] [address] [id number] [place] Referral Initiated 07/05/2016 Visit Plan: Start with CT abdomen/pelvis Will need EGD and Colonoscopy so will refer to Dr. Deffenbaugh Obtain most recent lab results 06/05/2016 Appointment: Jayna Vanessa WPtel: [phone] [phone] ACUTE ILLNESS 06/05/2016 Patient Education: Patient Medication Summary Completed 06/05/2016 Care Plan: CT PELVIS W/O DYE LOINC : 361 08-9 Pending 06/05/2016 Care Plan: CT ABDOMEN W/O DYE LOINC : 36 103-0 Pending 06/05/2016 Care Plan: Referral Order SNOMED-CT : [id number] Pending 06/05/2016 Appointment: Jayan Vanessa WPtel: [phone] [phone] US INJECTION 05/01/2016 Patient Education: Patient Medication Summary Completed 05/01/2016 Patient Education: Patient Medication Summary Completed 04/26/2016 Care Plan: RML COMPREHEN METABOLIC PANEL LOINC : 20529-0 Pending 04/26/2016 Care Plan: RML ASSAY THYROID STIM HORMONE Pending 04/26/2016 Care Plan: RML ASSAY OF FREE THYROXINE Pe nding 04/26/2016 Care Plan: RML A1C HPLC LOINC : 97211-8 Pending 04/26/2016 Referral: Aditya Stone WPtel: [address] [place] [address] [place], [place] [id number] Arrival time is 10:00 Am~sl Appointment Confirme d 11/25/2015 Visit Plan: Had fasting lab done this AM Continue PT for right shoulder Continue current meds Referral to Dr. Temo Stone for incontinence 11/08/2015 Appointment: Jayna Vanessa WPtel: [phone] [phone] 11/06 confirmed-sp FOLLOW UP 11/08/2015 Patient Education: Patient Medication Summary Completed 11/08/2015 Appointment: Jayna Vanessa WPtel: [phone] [phone] 10/19 rescheduled ~sl RESCHEDULED 10/24/2015 Appointment: Jayna Vanessa WPtel: [phone] [phone] 10/10rang and rang ~sl RESCHEDULED 6 Patient Education: Patient Medication Summary Completed 10/12/2015 Care Plan: RML COMPREHEN METABOLIC PANEL LOINC : 69282-7 Pending 10/12/2015 Care Plan: RML ASSAY THYROID STIM HORMONE Pending 10/12/2015 Care Plan: RML ASSAY OF FREE THYROXINE Pe nding 10/12/2015 Care Plan: RML LIPID PANEL LOINC : 68226 -1 Pending 10/12/2015 Care Plan: CBC Pending 10/12/2015 Care Plan: RML A1C HPLC LOINC : 69595-5 Pending 10/12/2015 Care Plan: VITAMIN D TOTAL (25 HYDROXY) P ending 10/12/2015 Appointment: Jayna Vanessa WPtel: [phone] US CANCELED 09/22/2015 Visit Plan: Lab discussed Change thyroid med back to brand synthroid and recheck thyroid lab in os 07/19/2015 Appointment: Jayna Vanessa WPtel: [phone] [phone] 07/18/15 appt confirmed cn FOLLOW UP 07/19 Patient Education: Patient Medication Summary Completed 07/19/2015 Patient Education: Patient Medication Summary Completed 07/12/2015 Visit Plan: Lab discussed Change synthro id to 150mcg all days but M, W, F will change to 175mcg Check Lab and fwup in os Flu shot given 03/28/2015 Appointment: Jayna Vanessa WPtel: [phone] [phone] 03/25 rang for 1:40 seconds 03/28/ appt confirmed cn FOLLOW UP 03/28/2015 Patient Education: Patient Medication Summary Completed 03/28/2015 Patient Education: Patient Medication Summary Completed 03/21/2015 Visit Plan: Continuue fluoxetine at high er dose Increase synthroid to 150mcg as ordered Decrease propranolol to 20mg po BID Check thyroid lab and fwup in 2mos Prevnar 13 given 02/08/2015 Appointment: Jayna Vanessa WPtel: [address] [place], [place] [phone] [place] [address] FOLLOW UP 02/08/2015 Patient Education: Patient Medication Summary Completed 02/08/2015 Visit Plan: Check CBC, CMP, TSH, Free T4 , uric acid, lactate now Increase fluoxetine to 40mg daily Recheck in 1month Notify if worsening Culture urine 01/11/2015 Appointment: Jayna Vanessa WPtel: [address] [place], [place] [phone] [place] [address] ACUTE ILLNESS 01/11/2015 Patient Education: Patient Medication Summary Completed 01/11/2015 Visit Plan: Lab discussed Accuchecks lucian ly Medrol dose pack Rx for back brace 11/24/2014 Appointment: Jayna Vanessa WPtel: [address] [place], [place] [phone] 6/2 confirmed -mf FOLLOW UP 11/24/2014 Patient Education: Patient Medication Summary Completed 11/24/2014 Appointment: Galina Leos WPtel: [address] [place] [address] ER Follow UP 11/19/2014 Patient Education: Patient Medication Summary Completed 11/19/2014 Appointment: Conchita Capone WPtel: [address] [place] [address] ACUTE ILLNESS 10/27/2014 Patient Education: Patient Medication Summary Completed 10/27/2014 Patient Education: [facility] - Saving AutoInj - 18+ - Dynamic Portal ID Completed 10/27/2014 Appointment: Conchita Capone WPtel: [address] [place] [address] ACUTE ILLNESS 09/23/2014 Patient Education: Patient Medication Summary Completed 09/23/2014 Visit Plan: Lab discussed Continue curre nt meds 07/28/2014 Appointment: [phone] 07/27 FOLLOW UP 07/28/2014 Patient Education: Patient Medication Summary Completed 07/28/2014 Patient Education: Patient Medication Summary Completed 07/21/2014 Patient Education: Patient Medication Summary Completed 04/27/2014 Appointment: Jayna Vanessa WPtel: [address] [place], [place] [phone] 03/29 FOLLOW UP 03/30/2014 Patient Education: Patient Medication Summary Completed 03/30/2014 Patient Education: [facility] - Saving AutoInj - 18+ - Dynamic Portal ID Completed 03/30/2014 Visit Plan: Lab discussed DC Vytorin Tri al of Lipitor 80mg q HS Continue Trilipix Check Lipids/CMP/thyroid and HbA1C in 4mos then fwup 11/24/2013 Appointment: Jayna Vanessa WPtel: [address] [place], [place] [phone] FOLLOW UP 11/24/2013 Patient Education: Patient Medication Summary Completed 11/24/2013 Patient Education: [facility] - Saving AutoInj - 18+ - Dynamic Portal ID Completed 11/24/2013 Visit Plan: Lab discussed Daily accuchec ks Cont current meds 08/25/2013 Appointment: Jayna Vanessa WPtel: [address] [place] [phone] 08/24 FOLLOW UP 08/25/2013 Patient Education: Patient Medication Summary Completed 08/25/2013 Appointment: Jayna Vanessa WPtel: [address] [place] [phone] FOLLOW UP 08/05/2013 Visit Plan: Continue Wellbutrin/Fluoxeti ne Fasting lab and fwup in 2mos 06/29/2013 Appointment: Jayna Vanessa WPtel: [address] [place] [phone] 06/26 [facility] FOLLOW UP 06/29/2013 Patient Education: Patient Medication Summary Completed 06/29/2013 Visit Plan: Increase Wellbutrin to 300mg daily Add fluoxetine 20mg daily 05/26/2013 Appointment: Jayna Vanessa WPtel: [address] [place], [place] [phone] FOLLOW UP 05/26/2013 Patient Education: Patient Medication Summary Completed 05/26/2013 Visit Plan: OK to proceed with planned s ulder surgery next week Continue current meds Check fasting lab--CBC, CMP, TSH, free T4, HbA1C, Lipids, Vit D at end of this week prior to surgery 05/06/2013 Appointment: Jayna Vanessa WPtel: [address] [place], [place] [phone] FOLLOW UP 05/06/2013 Patient Education: Patient Medication Summary Completed 05/06/2013 Appointment: Jayna Vanessa WPtel: [address] [place], [place] [phone] ACUTE ILLNESS 04/23/2013 Patient Education: Patient Medication Summary Completed 04/23/2013 Patient Education: [facility] - Saving AutoInj - 18+ - Dynamic Portal ID Completed 04/23/2013 Visit Plan: Decrease Lasix to 20mg daily Leave potassium at 20meq daily Check Chem 7 in 1wk 03/31/2013 Appointment: Jayna Vanessa WPtel: [address] [place], [place] [phone] FOLLOW UP 03/31/2013 Patient Education: Patient Medication Summary Completed 03/31/2013 Appointment: Conchita Capone WPtel: [address] [place], [place] [phone] ACUTE ILLNESS 03/05/2013 Patient Education: Patient Medication Summary Completed 03/05/2013 Visit Plan: Lab discussed Continue curre nt meds Pt is going to start allergy injections Go for port placement to continue prolastin infusions 02/04/2013 Appointment: Jayna Vanessa WPtel: [address] [place], [place] [phone] ACUTE ILLNESS 02/04/2013 Patient Education: Patient Medication Summary Completed 02/04/2013 Visit Plan: 2-D ECHO discussed See Pulmo nology Pt states cough had went away with allergy meds and then has came back Continue allergy meds and add pepcid BID Discussed allergy testing 11/27/2012 Appointment: Jayna Vanessa WPtel: [address] [place], [place] [phone] FOLLOW UP 11/27/2012 Patient Education: Patient Medication Summary Completed 11/27/2012 Visit Plan: PFTS discussed Proceed with 2-D ECHO and pulmonology evaluation Pt was concerned propranolol could be cause but discussed this is likely not culpri DEANDRE was DCed in 2009, is on PPI, has seen ENT, will restart allergy meds--may need allergy testing 11/11/2012 Appointment: Jayna Vanessa WPtel: [address] [place], [place] [phone] FOLLOW UP 11/11/2012 Patient Education: Patient Medication Summary Completed 11/11/2012 Visit Plan: Hold metformin Check CMP, Li pids, TSH, Free T4, HbA1C Check PFTs 10/20/2012 Appointment: Jayna Vanessa WPtel: [address] [place], [place] [phone] 10/17 left message FOLLOW UP 10/20/2012 Patient Education: Patient Medication Summary Completed 10/20/2012 Appointment: Jayna Vanessa WPtel: [address] [place], [place] [phone] 10/13 FOLLOW UP 10/14/2012 Visit Plan: Discussed fluids and rest. W ill monitor for worsening symptoms/fever. Azithromycin, medrol dose pack and refil on cough syrup. Pt. will notify if symptoms worsen or persist. 09/03/2012 Appointment: Lizzie Kelly WPtel: [address] [place], [place] [phone] ACUTE ILLNESS 09/03/2012 Patient Education: Patient Medication Summary Completed 09/03/2012 Visit Plan: discussed that symptoms star edvin around Lion time. Will begin culturelle BID and monitor for fever or worsening symptoms. Fluid intake important. CBC, CMP, sed rate and stool studies. Order written for Mag lab. 07/23/2012 Appointment: Lizzie Kelly WPtel: [address] [place], [place] [phone] ACUTE ILLNESS 07/23/2012 Patient Education: Patient Medication Summary Completed 07/23/2012 Visit Plan: Increase Metformin to 1000mg po BID Accuchecks daily Continue rest of meds at current dose and low-fat, low-sugar diet with increased exercise Check fasting lab in 4mos Restart Nexium 05/20/2012 Appointment: Jayna Vanessa WPtel: [address] [place], [place] [phone] patient had bad night so missed 05/06 appt...left voicemail 05/19 FOLLOW UP 05/20/2012 Patient Education: Patient Medication Summary Completed 05/20/2012 Appointment: Jayna Vanessa WPtel: [address] [place], [place] [phone] patient had bad night so missed 05/06 appt time. FOLLOW UP 05/06/2012 Appointment: Galina Leos WPtel: [address] [place], [place] [phone] ACUTE ILLNESS 04/04/2012 Patient Education: Patient Medication Summary Completed 04/04/2012 Visit Plan: Cryotherapy as above 02/20/2012 Appointment: Jayna Vanessa WPtel: [address] [place], [place] [phone] 02/18 OFFICE SURGERY 02/20/2012 Patient Education: Patient Medication Summary Completed 02/20/2012 Visit Plan: Increase Metfromin to 1000mg daily Continue all other current meds 01/02/2012 Appointment: Jayna Vanessa WPtel: [address] [place], [place] [phone] FOLLOW UP 01/02/2012 Patient Education: Patient Medication Summary Completed 01/02/2012 Appointment: Lizzie Kelly WPtel: [address] [place], [place] [phone] ACUTE ILLNESS 09/04/2011 Patient Education: Patient Medication Summary Completed 09/04/2011 Visit Plan: Finish Keflex Proceed with c olonoscopy Increase aspirin to 325mg daily for next 2wks Add Vimovo 20/500mg po Daily 08/14/2011 Appointment: Jayna Vanessa WPtel: [address] [place], [place] [phone] [facility] Follow Up 08/14/2011 Patient Education: Patient Medication Summary Completed 08/14/2011 Appointment: Lizzie Kelly WPtel: [address] [place] [address] ACUTE ILLNESS 07/31/2011 Patient Education: Patient Medication Summary Completed 07/31/2011 Visit Plan: Doxy and steroids. Codeine/g uiaf cough syrup. Pt. will monitor for worsening symptoms and notify if fever occurs. Encouraged rest and fluids. 07/25/2011 Appointment: Lizzie Kelly WPtel: [address] [place], [place] [phone] ACUTE ILLNESS 07/25/2011 Patient Education: Patient Medication Summary Completed 07/25/2011 Visit Plan: Check full lab in 3mos Radha nue with all current meds Continue PT for knee 07/12/2011 Appointment: Jayna Vanessa WPtel: [address] [place], [place] [phone] FOLLOW UP 07/12/2011 Patient Education: Patient Medication Summary Completed 07/12/2011 Visit Plan: Continue symbicort for 2 mor e weeks 05/09/2011 Appointment: Jayna Vnaessa WPtel: [address] [place], [place] [phone] FOLLOW UP 05/09/2011 Patient Education: Patient Medication Summary Completed 05/09/2011 Appointment: Jayna Vanessa WPtel: [address] [place], [place] [phone] ER Follow UP 05/02/2011 Patient Education: Patient Medication Summary Completed 05/02/2011 Visit Plan: Pt. has recently finished ro und of Cefdinir with no improvement. Chest x-ray, CBC, CMP and mycoplasma order given to pt. Pt. will start Doxycycline. 04/25/2011 Appointment: Lizzie Kelly WPtel: [address] [place], [place] [phone] FOLLOW UP 04/25/2011 Patient Education: Patient Medication Summary Completed 04/25/2011 Appointment: Lizzie Kelly WPtel: [address] [place], [place] [phone] ACUTE ILLNESS 04/04/2011 Patient Education: Patient Medication Summary Completed 04/04/2011 Appointment: Lizzie Kelly WPtel: [address] [place], [place] [phone] ACUTE ILLNESS 04/03/2011 Visit Plan: Decrease Synthroid to 150mcg daily Repeat TSH and Free T4 in 2mos Knee injection as above 03/01/2011 Appointment: Jayna Vanessa WPtel: [address] [place], [place] [phone] 03/01/2011 Patient Education: Patient Medication Summary Completed 03/01/2011 Visit Plan: Increase Synthroid to 175mcg po daily Check TSH, Free T4 in 8wks Injection given to knee as above Continue Pt 01/04/2011 Appointment: Jayna Vanessa WPtel: [address] [place], [place] [phone] FOLLOW UP 01/04/2011 Patient Education: Patient Medication Summary Completed 01/04/2011 Visit Plan: Septra DS, Mupirocin topical . Pt. will observe wound and report worsening symptoms. 12/07/2010 Appointment: Lizzie Kelly WPtel: [address] [place], [place] [phone] ACUTE ILLNESS 12/07/2010 Patient Education: Patient Medication Summary Completed 12/07/2010 Visit Plan: Increase Synthroid to 150mcg po daily Add Metformin Diet and exercise discussed at length again Repeat thyroid US Add Vit D level Will see if polydipsia improves with metformin 10/09/2010 Appointment: Jayna Vanessa WPtel: [address] [place], [place] [phone] FOLLOW UP 10/09/2010 Patient Education: Patient Medication Summary Completed 10/09/2010 Visit Plan: Increase Synthroid to 125mcg daily Decrease Vit D 50,000 u three times a week Discussed HRT Proceed with sleep study Fwup pending sleep study results 08/07/2010 Appointment: Jayna Vanessa WPtel: [address] [place], [place] [phone] FOLLOW UP 08/07/2010 Patient Education: Patient Medication Summary Completed 08/07/2010 Visit Plan: Decrease Synthroid to 100mcg QD Check thyroid lab in 2mos Check estradiol levels in 2mos--discussed HRT Increase Vit D 50,000u to 1 daily M-F 06/06/2010 Appointment: Jayna Vanessa WPtel: [address] [place], [place] [phone] ACUTE ILLNESS 06/06/2010 Patient Education: Patient Medication Summary Completed 06/06/2010 Visit Plan: Injections to knees as above 04/12/2010 Appointment: Jayna Vanessa WPtel: [address] [place], [place] [phone] OFFICE SURGERY 04/12/2010 Patient Education: Patient Medication Summary Completed 04/12/2010 Visit Plan: Decrease Synthroid to 175mcg QD Check lab in 2mos Change daily Vit D to weekly 03/20/2010 Appointment: Jayna Vanessa WPtel: [address] [place], [place] [phone] ESTABLISHED PATIENT 03/20/2010 Patient Education: Patient Medication Summary Completed 03/20/2010 Appointment: Jayna Vanessa WPtel: [address] [place], [place] [phone] ACUTE ILLNESS 01/30/2010 Patient Education: Patient Medication Summary Completed 01/30/2010 Appointment: Jayna Vanessa WPtel: [phone] [phone] ACUTE ILLNESS 01/09/2010 Patient Education: Patient Medication Summary Completed 01/09/2010 Appointment: Jayna Vanessa WPtel: [phone] [phone] BP CHECK 11/07/2009 Patient Education: Patient Medication Summary Completed 11/07/2009 Appointment: Jayna Vanessa WPtel: [phone] [phone] OFFICE SURGERY 10/26/2009 Patient Education: Patient Medication Summary Completed 10/26/2009 Appointment: Lizzie Kelly WPtel: [address] [place], [place] [phone] OFFICE SURGERY 10/17/2009 Patient Education: Patient Medication [...] up appnt. 10/04/2009 Appointment: Lizzie Kelly WPtel: [address] [place], [place] [phone] ACUTE ILLNESS 10/04/2009 Patient Education: Patient Medication Summary Completed 10/04/2009 Visit Plan: E-scribed refils. Pt. report s that she normally has lab work drawn and orders are given (faxed) to her normal lab facility by Patricia. Pt. states her migraine headaches have abated for now and that she is going to see her migraine doctor in [place] in the near future(Dr Cook) Pt will seek re-eval as necessary for acute issues. 09/21/2009 Appointment: Lizzie Kelly WPtel: [address] [place], [place] [id number] [place] CHECK UP 09/21/2009 Patient Education: Patient Medication Summary Completed 09/21/2009 Appointment: [facility]Ptel[phone] [id number] [facility] CHECK UP 09/20/2009 Appointment: Lizz[facility] Kelly WPtel: [facility] [facility] [id number] US FOLLOW UP 09/19/2009 Referral: Alf Lang WPtel: [facility] Yang [id number] [place] Referral Appointment Requested Referral: Singh Pina WPtel: [address] [facility] [place] Referral Appointment Requested Referral: Aditya Stone WPtel: [address] [facility] [address] [id number] [place] Referral Appointment Requested Instructions Comment Date [...] going to see her migraine doctor in [place] in the near future(Dr Cook) Pt will [...]
--- OUTSIDE RECORDS SUMMARY | 2022-09-10 17:00 | XMS REPORT | CCD ---
Author Author Marcella Vanessa D.O. 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 Name Role Phone Jayna Vanessa D.O., PP Unavailable CCM Unavailable Summary Purpose Interface Exchange Insurance Providers Payer name Policy type / Coverage type Covered green party ID Effective Begin Date Effective End Date [employer] Commercial Insurance [id number] Unknown Commercial Insurance [id number] Unknown Family history Side Diagnosis Age At Onset Heart disease Unknown Diabetes Unknown Sister Diagnosis Age At Onset Diabetes Unknown Brother Diagnosis Age At Onset Diabetes Unknown Mother Diagnosis Age At Onset Heart disease Unknown Father Diagnosis Age At Onset Heart disease Unknown Social History Social History Element Codes Description Effective Dates Tobacco history SNOMED CT: 797796009 Never smoker 04/04/2011 Marital status Unknown 09/21/2009 [...] gastroenteritis ICD-10: K52.9 ICD-9: 558.9 07/05/2020 Active 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 11/28/2016 Active [...] ANXIETY STATE NOS ICD-9: 300.00 03/05/2013 Active Vyloa-0-pvqvosvclra 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 02/04/2013 A ctive DYSPNEA [...] Fill Instructions Macrobid 100 mg capsule RxNorm: 803794 Take 1 Capsule(s) Oral t wo times a day 09/05/2022 09/11/2022 Active bupropion HCl XL 300 mg 24 hr tablet, extended release RxNor m: 805568 TAKE 1 Tablet BY MOUTH DAILY IN THE MORNING (replaces 150mg DOSE) 08/29/2022 02/24/2023 Active levothyroxine 150 mcg tablet RxNorm: 889653 TAKE ONE TA BLET BY MOUTH EVERY IN THE MORNING 08/29/2022 02/24/2023 Active ciprofloxacin 250 mg tablet RxNorm: 150456 Take 1 Tablet(s) Ora l Q12H 06/29/2022 07/03/2022 Inactive levothyroxine 150 mcg tablet RxNorm: 888595 Take 1 Tablet(s) Or al QAM 06/03/2022 06/03/2022 Inactive Wellbutrin XL 300 mg 24 hr tablet, extended release RxNorm: 220799 Take 1 Tablet(s) Oral QAM replaces 150mg dose 05/28/2022 05/28/2022 Inactive Xyzal 5 mg tablet RxNorm: 509852 Take 1 Tablet(s) Oral QPM 05/10/2010/06/2022 Active Claritin 10 mg tablet RxNorm: 346617 Take 1 Tablet(s) Oral QAM 04/2409/06/2022 Inactive Flonase Allergy Relief 50 mcg/actuation nasal spray,suspensi on RxNorm: 0718483 Take 1 [place] Nasal two times a day 05/10/2022 06/08/2022 Inactive Wellbutrin XL 150 mg 24 hr tablet, extended release RxNorm: 679106 Take 1 Tablet(s) Oral QAM 05/10/2022 05/27/2022 Inactive sumatriptan 100 mg tablet RxNorm: 100687 1 Tablet(s) Or al after onset of migraine; may repeat after 2 hours if headache returns, not to exceed 200mg in 24hrs replaces rizatriptan 04/19/2022 04/19/2022 Inactive sumatriptan 100 mg tablet RxNorm: 314089 1 Tablet(s) Or al after onset of migraine; may repeat after 2 hours if headache returns, not to exceed 200mg in 24hrs replaces rizatriptan 04/19/2022 04/19/2022 Inactive propranolol 20 mg tablet RxNorm: 054240 TAKE 1 TABLET BY MOUTH TWICE DAILY 04/18/2022 10/14/2022 Active rizatriptan 10 mg disintegrating tablet RxNorm: 157184 Take 1 Tablet(s) Oral on top of tongue, allow to dissolve then swallow once, may repeat every 2 hrs; max 30 mg/24hrs 04/18/2022 04/18/2022 Inactive prednisone 20 mg tablet RxNorm: 995660 Take 1 Tablet(s) Oral tw o times a day 02/15/2022 02/21/2022 Inactive Nurtec ODT 75 mg disintegrating tablet RxNorm: 1549270 T bria 1 Tablet(s) Oral per 24 hours as needed for migraine 02/09/2022 02/09/2022 Inactive Nurtec ODT 75 mg disintegrating tablet RxNorm: 2165010 T bria 1 Tablet(s) Oral per 24 hours as needed for migraine 02/09/2022 02/09/2022 Inactive fluticasone propionate 50 mcg/actuation nasal spray,suspensi on RxNorm: 7426000 SPRAY ONE SPRAY IN EACH NOSTRIL TWICE DAILY NEEDED 02/05/20222021 Inactive levothyroxine 150 mcg tablet RxNorm: 638291 Take 1 Tablet(s) Or al QAM 02/04/2022 02/04/2022 Inactive albuterol sulfate HFA 90 mcg/actuation aerosol inhaler RxNor m: 7284051 Inhale 2 Puff(s) Oral Q4H as needed 01/05/2022 04/04/2022 Inactive pantoprazole 40 mg tablet,delayed release RxNorm: 122006 Take 1 Tablet(s) Oral QD 01/04/2022 07/02/2022 Inactive propranolol 20 mg tablet RxNorm: 848429 TAKE 1 TABLET BY MOUTH TWICE DAILY 01/04/2022 04/17/2022 Inactive levothyroxine 150 mcg tablet RxNorm: 757960 Take 1 Tablet(s) Or al QAM 12/05/2021 12/05/2021 Inactive metronidazole 500 mg tablet RxNorm: 952201 Take 1 Table t(s) Oral two times a day 11/29/2021 12/05/2021 Inactive Singulair 10 mg tablet RxNorm: 862714 Take 1 Tablet(s) Oral QPM 06/202105/09/2022 Inactive Diflucan 100 mg tablet RxNorm: 889511 Take 1 Tablet(s) Oral QD 06/0 06/202111/28/2021 Inactive pantoprazole 40 mg tablet,delayed release RxNorm: 757152 Take 1 Tablet(s) Oral QD 11/06/2021 11/06/2021 Inactive fluticasone propionate 50 mcg/actuation nasal spray,suspensi on RxNorm: 9552848 SPRAY ONE SPRAY IN EACH NOSTRIL TWICE DAILY NEEDED 11/03/20212021 Inactive scopolamine 1 mg over 3 days transdermal patch RxNorm: 74266 2 Apply 1 Unit Dose Transdermal Q72H behind ear 10/30/2021 02/05/2022 Inactive albuterol sulfate HFA 90 mcg/actuation aerosol inhaler RxNor m: 9785529 Inhale 2 Puff(s) Oral Q4H as needed 10/05/2021 11/24/2021 Inactive pantoprazole 40 mg tablet,delayed release RxNorm: 919349 Take 1 Tablet(s) Oral QD 10/05/2021 10/05/2021 Inactive meloxicam 7.5 mg tablet RxNorm: 157722 Take 1 Tablet(s) Oral QD for pain 09/05/2021 09/11/2021 Inactive baclofen 10 mg tablet RxNorm: 757962 Take 0.5-1 Tablet( s) Oral three times per week as needed for muscle spasm 09/05/2021 02/05/2022 Inactive prednisone 20 mg tablet RxNorm: 335518 Take 1 Tablet(s) Oral QD 08/202108/28/2021 Inactive pantoprazole 40 mg tablet,delayed release RxNorm: 416939 Take 1 Tablet(s) Oral QD 07/07/2021 09/04/2021 Inactive fluticasone propionate 50 mcg/actuation nasal spray,suspensi on RxNorm: 5401692 Take 1 [place] Nasal two times a day in each nostrilas needed 07/04/2021 10/01/2021 Inactive Decadron 6 mg tablet RxNorm: 401364 Take 1 Tablet(s) Oral QD 202107/08/2021 Inactive albuterol sulfate HFA 90 mcg/actuation aerosol inhaler RxNor m: 6073710 Inhale 2 Puff(s) Oral Q4H as needed 06/08/2021 09/05/2021 Inactive propranolol 20 mg tablet RxNorm: 627962 TAKE 1 TABLET BY MOUTH TWICE DAILY 06/08/2021 06/08/2021 Inactive pantoprazole 40 mg tablet,delayed release RxNorm: 128059 Take 1 Tablet(s) Oral QD 04/09/2021 06/07/2021 Inactive ProAir HFA 90 mcg/actuation aerosol inhaler RxNorm: 336097 2 Puff(s) Inhalation Q4H as needed 03/13/2021 03/13/2021 Inactive citalopram 10 mg tablet RxNorm: 651962 1 Tablet(s) Oral two antonio es a day 03/13/2021 02/05/2022 Inactive levothyroxine 150 mcg tablet RxNorm: 053912 TAKE 1 Tabl et BY MOUTH EVERY MORNING (REPLACES 137 MCG DOSE) 03/09/2021 03/09/2021 Inactive pantoprazole 40 mg tablet,delayed release RxNorm: 395506 Take 1 Tablet(s) Oral QD 02/08/2021 04/08/2021 Inactive triamcinolone acetonide 0.1 % topical cream RxNorm: 0681650 Take Application Topical two times a day to arm rash 01/19/2021 01/19/2021 Inactive prednisone 20 mg tablet RxNorm: 484087 Take 1 Tablet(s) Oral QD 01/23/2021 Inactive levothyroxine 150 mcg tablet RxNorm: 341113 Take 1 Tabl et(s) Oral QAM replaces 137mcg dose 01/03/2021 01/03/2021 Inactive prednisone 20 mg tablet RxNorm: 726400 Take 2 Tablet(s) Oral QD 01/202112/03/2020 Inactive promethazine-DM 6.25 mg-15 mg/5 mL oral syrup RxNorm: 718834 Take 5 Milliliter(s) Oral Every 6 hours as needed, not to exceed 30 mL in 24 hours 11/29/2020 12/03/2020 Inactive doxycycline hyclate 100 mg capsule RxNorm: 2710110 1 Cap kimi(s) Oral two times a day 09/29/2020 10/05/2020 Inactive Lalita-D 12 Hour 60 mg-120 mg tablet,extended release RxNor m: 372061 1 Tablet(s) Oral QD 09/19/2020 10/03/2020 Inactive ProAir HFA 90 mcg/actuation aerosol inhaler RxNorm: 006184 2 Inhalation Q4H as needed 09/19/2020 09/19/2020 Inactive propranolol 20 mg tablet RxNorm: 970730 TAKE 1 TABLET BY MOUTH TWICE DAILY 09/15/2020 09/15/2020 Inactive pantoprazole 40 mg tablet,delayed release RxNorm: 169335 1 Tabl et(s) Oral QD 09/09/2020 09/08/2020 Inactive pantoprazole 40 mg tablet,delayed release RxNorm: 043409 1 Tabl et(s) Oral QD 09/09/2020 11/07/2020 Inactive propranolol 20 mg tablet RxNorm: 647715 TAKE 1 TABLET BY MOUTH TWICE DAILY 08/24/2020 09/09/2020 Inactive levothyroxine 137 mcg tablet RxNorm: 910014 1 Tablet(s) Oral QD 08/202001/02/2021 Inactive avjdtrfu-beofhgmlo-njffbcaa 3.5 mg/mL-10,000 unit/mL-0 .1% eye drops RxNorm: 915624 4 Drop(s) Otic three times a day 08/10/2020 02/05/2022 Inactive prednisone 20 mg tablet RxNorm: 688439 1 Tablet(s) Oral two antonio es a day 08/01/2020 08/08/2020 Inactive pantoprazole 40 mg tablet,delayed release RxNorm: 957229 1 Tabl et(s) Oral QD 07/13/2020 09/08/2020 Inactive ondansetron HCl 4 mg tablet RxNorm: 161567 1 Tablet(s) Oral Q4H as needed for nausea 07/13/2020 05/09/2022 Inactive levothyroxine 137 mcg tablet RxNorm: 349297 1 Tablet(s) Oral QD 08/23/2020 Inactive pantoprazole 40 mg tablet,delayed release RxNorm: 822972 1 Tabl et(s) Oral QD 07/13/2020 07/12/2020 Inactive ondansetron HCl 4 mg tablet RxNorm: 048686 1 Tablet(s) Oral Q4H as needed for nausea 07/05/2020 07/12/2020 Inactive Flagyl 500 mg tablet RxNorm: 071626 1 Tablet(s) Oral three time s a day 07/05/2020 07/12/2020 Inactive Fish Oil 1,000 mg (120 mg-180 mg) capsule RxNorm: 1 Caps ule(s) Oral QD 06/23/2020 09/18/2020 Inactive rosuvastatin 10 mg tablet RxNorm: 314363 1 Tablet(s) Oral MWF 06/2306/22/2020 Inactive rosuvastatin 10 mg tablet RxNorm: 904751 1 Tablet(s) Oral MWF 06/2302/05/2022 Inactive fluconazole 100 mg tablet RxNorm: 556110 1 Tablet(s) Oral QOD 05/1706/21/2020 Inactive Macrobid 100 mg capsule RxNorm: 512020 1 Capsule(s) Oral two ti mes a day 05/17/2020 05/24/2020 Inactive levothyroxine 137 mcg tablet RxNorm: 146406 TAKE 1 TABLET BY [facility] ONCE DAILY 05/16/2020 07/12/2020 Inactive Eliquis 5 mg tablet RxNorm: 4086993 1 Tablet(s) Oral two times a da y 04/25/2020 02/05/2022 Inactive propranolol 20 mg tablet RxNorm: 090993 TAKE 1 TABLET BY MOUTH TWICE DAILY 04/25/2020 08/23/2020 Inactive doxycycline hyclate 100 mg capsule RxNorm: 8420716 1 Cap kimi(s) Oral two times a day 03/24/2020 03/31/2020 Inactive doxycycline hyclate 100 mg capsule RxNorm: 2093685 1 Cap kimi(s) Oral two times a day 03/24/2020 03/23/2020 Inactive propranolol 20 mg tablet RxNorm: 925208 TAKE 1 TABLET BY MOUTH TWICE DAILY 03/15/2020 04/13/2020 Inactive Eliquis 5 mg tablet RxNorm: 0233412 1 Tablet(s) Oral two times a da y 03/14/2020 04/24/2020 Inactive Eliquis 5 mg tablet RxNorm: 7276400 1 Tablet(s) Oral two times a da y 03/14/2020 03/13/2020 Inactive levofloxacin 500 mg tablet RxNorm: 843640 1 Tablet(s) Oral QD 02/1802/26/2020 Inactive levofloxacin 500 mg tablet RxNorm: 452490 1 Tablet(s) Oral QD 02/1802/18/2020 Inactive Tessalon Perles 100 mg capsule RxNorm: 081414 1 Capsule (s) Oral three times a day as needed 02/16/2020 02/25/2020 Inactive levothyroxine 137 mcg tablet RxNorm: 882217 TAKE 1 TABLET BY [facility] ONCE DAILY 02/15/2020 03/15/2020 Inactive ProAir HFA 90 mcg/actuation aerosol inhaler RxNorm: 527141 2 Inhalation Q4H as needed 02/11/2020 09/18/2020 Inactive Medrol (Isaiah) 4 mg tablets in a dose pack RxNorm: 734377 Tablet( s) Oral 02/11/2020 02/11/2020 Inactive levothyroxine 137 mcg tablet RxNorm: 263031 TAKE 1 TABLET BY [facility] ONCE DAILY 12/16/2019 01/14/2020 Inactive propranolol 20 mg tablet RxNorm: 376052 TAKE 1 TABLET BY MOUTH TWICE DAILY 12/16/2019 01/14/2020 Inactive levothyroxine 137 mcg tablet RxNorm: 253579 TAKE 1 TABLET BY [facility] ONCE DAILY 10/16/2019 11/14/2019 Inactive prednisone 20 mg tablet RxNorm: 861995 1 Tablet(s) Oral two times a day for rash/hives 09/29/2019 10/04/2019 Inactive Probiotic 10 billion cell capsule RxNorm: 3192577 1 Capsule(s) O ral QD 09/14/2019 02/10/2020 Inactive Bactrim DS 800 mg-160 mg tablet RxNorm: 929258 1 Tablet(s) Oral two times a day 09/14/2019 09/13/2019 Inactive citalopram 10 mg tablet RxNorm: 876571 1 Tablet(s) Oral two antonio es a day 09/14/2019 12/20/2019 Inactive hydroxychloroquine 200 mg tablet RxNorm: 800976 1 Table t(s) Oral two times a day 09/14/2019 02/05/2022 Inactive Bactrim DS 800 mg-160 mg tablet RxNorm: 793536 1 Tablet(s) Oral two times a day 09/14/2019 09/24/2019 Inactive Cipro 250 mg tablet RxNorm: 522165 1 Tablet(s) Oral two times a day 09/02/2019 09/08/2019 Inactive levothyroxine 137 mcg tablet RxNorm: 317951 1 Tablet(s) Oral QD 10/10/2019 Inactive levothyroxine 137 mcg tablet RxNorm: 876451 1 Tablet(s) Oral QD 08/11/2019 Inactive propranolol 20 mg tablet RxNorm: 612611 TAKE 1 TABLET BY MOUTH TWICE DAILY 06/18/2019 12/14/2019 Inactive 06/18/2019 11:09:41 AM Cipro 250 mg tablet RxNorm: 742899 1 Tablet(s) Oral two times a day 04/17/2019 04/16/2019 Inactive Cipro 250 mg tablet RxNorm: 031676 1 Tablet(s) Oral two times a day 04/17/2019 04/24/2019 Inactive Macrobid 100 mg capsule RxNorm: 374817 1 Capsule(s) Oral two ti mes a day 04/15/2019 04/16/2019 Inactive metronidazole 500 mg tablet RxNorm: 473171 1 Tablet(s) Oral thr ee times a day 03/18/2019 03/28/2019 Inactive Bactrim DS 800 mg-160 mg tablet RxNorm: 502160 1 Tablet(s) Oral two times a day 03/18/2019 03/18/2019 Inactive Cipro 250 mg tablet RxNorm: 164087 1 Tablet(s) PO BID 01/26/201901/22 Inactive Flagyl 500 mg tablet RxNorm: 534215 1 Tablet(s) PO TID 01/26/201904/2019 Inactive prednisone 20 mg tablet RxNorm: 194909 1 Tablet(s) PO B ID for 4 days then 1 po daily for 4 days 01/08/2019 03/17/2019 Inactive doxycycline hyclate 100 mg capsule RxNorm: 3606186 1 Capsule(s) PO BID 01/08/2019 01/14/2019 Inactive doxycycline hyclate 100 mg capsule RxNorm: 9073800 1 Capsule(s) PO BID 01/08/2019 01/07/2019 Inactive propranolol 20 mg tablet RxNorm: 100051 1 Tablet(s) PO BID 12/24/1906/17/2019 Inactive Bactrim DS 800 mg-160 mg tablet RxNorm: 349150 1 Tablet (s) PO BID repeat urine culture 48 hours after antibiotics completed. 12/15/2018 12/14/2018 In active Bactrim DS 800 mg-160 mg tablet RxNorm: 236565 1 Tablet (s) PO BID repeat urine culture 48 hours after antibiotics completed. 12/15/2018 12/19/2018 In active levothyroxine 137 mcg tablet RxNorm: 630036 1 Tablet(s) PO QD 12/0906/06/2019 Inactive meclizine 25 mg tablet RxNorm: 600084 1 Tablet(s) PO TID for di zziness 10/30/2018 11/08/2018 Inactive doxycycline hyclate 100 mg tablet RxNorm: 6693265 1 Tablet(s) PO BI D 10/07/2018 10/16/2018 Inactive albuterol sulfate HFA 90 mcg/actuation aerosol inhaler RxNor m: 214037 2 Puff(s) INH Q4H as needed 10/07/2018 02/10/2020 Inactive chlorpheniramine 4 mg tablet RxNorm: 7609689 1 Tablet(s) PO QHS for allergies 10/07/2018 03/17/2019 Inactive Tessalon 200 mg capsule RxNorm: 664499 1 Capsule(s) PO TID 10/08/1910/26/2018 Inactive doxycycline hyclate 100 mg tablet RxNorm: 2884492 1 Tablet(s) PO BI D 10/07/2018 10/06/2018 Inactive Tessalon 200 mg capsule RxNorm: 010934 1 Capsule(s) PO TID 10/08/1910/06/2018 Inactive levothyroxine 137 mcg tablet RxNorm: 236178 1 Tablet(s) PO QD 08/0512/02/2018 Inactive propranolol 20 mg tablet RxNorm: 499815 1 Tablet(s) PO BID 06/23/2012/19/2018 Inactive chlorpheniramine 4 mg tablet RxNorm: 3689974 1 Tablet(s) PO QHS for allergies 06/23/2018 08/21/2018 Inactive levothyroxine 137 mcg tablet RxNorm: 091597 1 Tablet(s) PO QD 06/0308/01/2018 Inactive levothyroxine 137 mcg tablet RxNorm: 933111 1 Tablet(s) PO QD 06/0306/02/2018 Inactive Synthroid 150 mcg tablet RxNorm: 387186 1 Tablet(s) PO QD 04/03/2018 06/22/2018 Inactive Synthroid 150 mcg tablet RxNorm: 099300 1 Tablet(s) PO QD 04/03/2018 04/02/2018 Inactive propranolol 20 mg tablet RxNorm: 087808 1 Tablet(s) PO BID 03/17/20 18 06/14/2018 Inactive propranolol 20 mg tablet RxNorm: 969272 1 Tablet(s) PO BID 03/17/20 18 06/21/2020 Inactive Lancets,Ultra Thin RxNorm: Miscellaneous Use to test blood sugar daily and as needed (Dx: E11.65) 02/28/2018 05/09/2022 Inactive Contour Test Strips RxNorm: Miscellaneous Test b lood sugar daily and as needed (Dx: E11.65) 02/28/2018 05/09/2022 Inactive Contour Meter RxNorm: 1 Miscellaneous DX: E11.65 02/27/20182021 Inactive DX: E11.65 Synthroid 175 mcg tablet RxNorm: 677899 1 Tablet(s) PO QD 01/28/2018 04/02/2018 Inactive Synthroid 175 mcg tablet RxNorm: 918894 1 Tablet(s) PO QD 01/16/2018 04/02/2018 Inactive Medrol (Isaiah) 4 mg tablets in a dose pack RxNorm: 810746 Tablet(s) P O 10/16/2017 01/15/2018 Inactive cyclobenzaprine 7.5 mg tablet RxNorm: 670177 1/2-1 Tablet(s) PO TID as needed 10/16/2017 06/22/2018 Inactive pantoprazole 40 mg tablet,delayed release RxNorm: 399736 1 Tabl et(s) PO QD 08/21/2017 06/22/2018 Inactive Nexium 40 mg capsule,delayed release RxNorm: 387646 1 Capsule(s ) PO QD 08/20/2017 08/20/2017 Inactive doxycycline hyclate 100 mg capsule RxNorm: 4279962 1 Capsule(s) PO BID 08/13/2017 08/12/2017 Inactive doxycycline hyclate 100 mg capsule RxNorm: 1042383 1 Capsule(s) PO BID 08/13/2017 08/19/2017 Inactive Tessalon Perles 100 mg capsule RxNorm: 650156 1 Capsule(s) PO T ID as needed 07/29/2017 08/07/2017 Inactive prednisone 20 mg tablet RxNorm: 347424 1 Tablet(s) PO BID 07/25/2017 07/27/2017 Inactive albuterol sulfate HFA 90 mcg/actuation aerosol inhaler RxNor m: 067557 2 Puff(s) INH Q4H as needed 07/25/2017 10/06/2018 Inactive doxycycline hyclate 100 mg capsule RxNorm: 5391908 1 Capsule(s) PO BID 06/10/2017 06/19/2017 Inactive prednisone 20 mg tablet RxNorm: 825602 1 Tablet(s) PO T ID for 2 days then 1 po BID for 2 days then 1 daily for 3 days 06/10/2017 08/12/2017 Inactive fenofibrate micronized 134 mg capsule RxNorm: 502444 TAKE 1 CAP KIMI DAILY 06/03/2017 06/22/2018 Inactive Zithromax Z-Isaiah 250 mg tablet RxNorm: 050596 Tablet(s) PO Take as directed 05/28/2017 06/09/2017 Inactive prednisone 20 mg tablet RxNorm: 980310 2 Tablet(s) PO QD 05/28/2017 1 08/01/2016 Inactive Tessalon Perles 100 mg capsule RxNorm: 867553 1 Capsule(s) PO T ID as needed 05/28/2017 06/09/2017 Inactive Janumet XR 100 mg-1,000 mg tablet,extended release RxNorm: 1 763325 1 Tablet(s) PO QD 02/14/2017 06/22/2018 Inactive fluoxetine 40 mg capsule RxNorm: 758588 1 Capsule(s) PO QD 02/15/20 17 06/22/2018 Inactive Vitamin D2 50,000 unit capsule RxNorm: 669768 1 Capsule (s) PO TAKE 1 CAPSULE BY MOUTH TWICE WEEKLY 02/11/2017 07/10/2017 Inactive Generic For:* DRISDOL 02/03/2015 10:10:59 AM Janumet XR 100 mg-1,000 mg tablet,extended release RxNorm: 1 950243 1 Tablet(s) PO QD 09/24/2016 10/06/2018 Inactive Vitamin D2 50,000 unit capsule RxNorm: 484490 Capsule(s ) TAKE 1 CAPSULE BY MOUTH TWICE WEEKLY 09/11/2016 02/11/2017 Inactive Generic For:*VERN NAVARRETEOL [id number] 02/03/2015 10:10:59 AM Pepcid 20 mg tablet RxNorm: 325572 Tablet(s) PO TAKE 1 TABLET BY MOUTH TWICE DAILY. 06/14/2016 06/13/2016 Inactive fluoxetine 40 mg capsule RxNorm: 837307 1 Capsule(s) PO QD 06/14/20 16 12/10/2016 Inactive loratadine 10 mg tablet RxNorm: 951921 1 Tablet(s) PO QD 1 Tabl et(s) PO BID 06/14/2016 04/03/2017 Inactive [AttnRPh: Saving ryan ly/adjudicate RxGRP:SG20 RxBIN:[id number] RxPCN: ID#:[id number]] Vitamin D2 50,000 unit capsule RxNorm: 333876 Capsule(s ) TAKE 1 CAPSULE BY MOUTH TWICE WEEKLY 06/14/2016 09/10/2016 Inactive Generic For:*VERN NAVARRETEOL [id number] 02/03/2015 10:10:59 AM Synthroid 175 mcg tablet RxNorm: 663415 1 Tablet(s) PO Saturday t hrough Saturday QD 06/05/2016 01/15/2018 Inactive Synthroid 150 mcg tablet RxNorm: 998725 1 Tablet(s) PO Sat and Sun 11/09/2015 06/04/2016 Inactive Synthroid 175 mcg tablet RxNorm: 863820 1 Tablet(s) PO Saturday t hrough Saturday11/09/2015 06/04/2016 Inactive Synthroid 150 mcg tablet RxNorm: 806667 1 Tablet(s) PO Sat and Sun , Sat, Sun 11/09/2015 11/08/2015 Inactive Janumet XR 100 mg-1,000 mg tablet,extended release RxNorm: 1 306810 TAKE 1 TABLET DAILY 09/30/2015 09/24/2016 Inactive azithromycin 500 mg tablet RxNorm: 123750 1 Tablet(s) PO QD 016 07/25/2015 Inactive azithromycin 500 mg tablet RxNorm: 277747 1 Tablet(s) PO QD 016 08/01/2015 Inactive loratadine 10 mg tablet RxNorm: 532897 1 Tablet(s) PO BID 04/06/2015 06/14/2016 Inactive [AttnRPh: Saving apply/adjudicate RxGRP: SG20 RxBIN:[id number] RxPCN: ID#:[id number]] Synthroid 175 mcg tablet RxNorm: 102362 1 Tablet(s) PO M, W, F 10/201411/08/2015 Inactive Synthroid 150 mcg tablet RxNorm: 629758 1 Tablet(s) PO QD Tu, T h, Sat, Sun 03/28/2015 11/08/2015 Inactive propranolol 20 mg tablet RxNorm: 230462 1 Tablet(s) PO BID 02/09/20 15 06/13/2016 Inactive fluoxetine 40 mg capsule RxNorm: 970307 1 Capsule(s) PO QD 02/09/20 15 06/14/2016 Inactive Vitamin D2 50,000 unit capsule RxNorm: 626256 TAKE 1 CA PSULE BY MOUTH TWICE WEEKLY 02/03/2015 06/14/2016 Inactive Generic For:*VERN FREEDMAN [id number] 02/03/2015 10:10:59 AM Lipitor 80 mg tablet RxNorm: 296566 1 Tablet(s) PO QD 01/24/201507/26 Inactive [AttnRPh: Saving apply/adjudicate RxGRP: SG20 RxBIN:[id number] RxPCN: ID#:[id number]] Bactrim DS 800 mg-160 mg tablet RxNorm: 310546 1 Tablet(s) PO BID 0 01/12/2015 01/11/2015 Inactive Synthroid 150 mcg tablet RxNorm: 883009 1 Tablet(s) PO QD 01/12/2015 03/27/2015 Inactive Bactrim DS 800 mg-160 mg tablet RxNorm: 509378 1 Tablet(s) PO BID 0 01/12/2015 01/18/2015 Inactive fluoxetine 40 mg capsule RxNorm: 048239 1 Capsule(s) PO QD 01/12/20 15 02/07/2015 Inactive Synthroid 137 mcg tablet RxNorm: 174188 1 Tablet(s) PO QD 12/08/2014 01/11/2015 Inactive [AttnRPh: Saving apply/adjudicate RxGRP: SG20 RxBIN:[id number] RxPCN: ID#:[id number]] Medrol (Isaiah) 4 mg tablets in a dose pack RxNorm: 405324 6 Tablet(s) PO QD --then as directed 11/24/2014 11/29/2014 Inactive albuterol sulfate HFA 90 mcg/actuation aerosol inhaler RxNor m: 254215 2 Puff(s) INH Q4H as needed 10/27/2014 07/24/2017 Inactive phenazopyridine 100 mg tablet RxNorm: 7014939 1 Tablet(s) PO TID 11/07/2015 Inactive [AttnRPh: Saving apply/adjud icate RxGRP:SG20 RxBIN:[id number] RxPCN: ID#:[id number]] Macrobid 100 mg capsule RxNorm: 899404 1 Capsule(s) PO BID 10/28/19 15 11/02/2014 Inactive [SAVINGS FOR NON-COVERED RUBIO GS -- BIN:246948, PCN: ASPROD1, Group: XXXXX, ID# [id number], Questions: . THIS IS NOT INSURANCE.] prednisone 20 mg tablet RxNorm: 323355 1 Tablet(s) PO BID 10/27/2014 10/31/2014 Inactive AttnRPh: Saving apply/adjudicate RxGRP:S G20 RxBIN:[id number] RxPCN:HT ID#:[id number]: Saving apply/adjudicate RxGRP:SG20 RxBIN:[id number] RxPCN:HT ID#:[id number] Macrobid 100 mg capsule RxNorm: 355098 1 Capsule(s) PO BID 09/24/19 15 09/29/2014 Inactive [SAVINGS FOR NON-COVERED RUBIO GS -- BIN:225043, PCN: ASPROD1, Group: XXXXX, ID# [id number], Questions: . THIS IS NOT INSURANCE.] phenazopyridine 100 mg tablet RxNorm: 2455013 1 Tablet(s) PO TID 09/24/2014 Inactive [SAVINGS FOR NON-COVERED RUBIO GS -- BIN:600996, PCN: ASPROD1, Group: XXXXX, ID# [id number], Questions: . THIS IS NOT INSURANCE.] propranolol 60 mg tablet RxNorm: 100882 1 Tablet(s) PO QD 07/26/2014 02/07/2015 Inactive [SAVINGS FOR UNINSURED PATIENTS -- BIN:0 64924, PCN: ASPROD1, Group: [id number], ID# [id number], Process claim through [employer], for questions: . THIS IS NOT INSURANCE.] loratadine 10 mg tablet RxNorm: 639329 1 Tablet(s) PO BID 07/12/2014 07/11/2014 Inactive [AttnRPh: Saving apply/adjudicate RxGRP: [id number] RxBIN:[id number] RxPCN: ID#:[id number]] loratadine 10 mg tablet RxNorm: 210528 1 Tablet(s) PO BID 07/12/2014 10/06/2018 Inactive [SAVINGS FOR UNINSURED PATIENTS -- BIN:0 64102, PCN: ASPROD1, Group: [id number], ID# [id number], Process claim through [employer], for questions: . THIS IS NOT INSURANCE.] Vitamin D2 50,000 unit capsule RxNorm: 360144 1 Capsule (s) PO Take 1 capsule by mouth twice weekly 05/18/2014 02/02/2015 Inactive Pepcid 20 mg tablet RxNorm: 835337 TAKE 1 TABLET BY MOUTH TWICE DAILY. 05/18/2014 06/14/2016 Inactive Generic For:PEPCID 2 0MG 05/18/2014 11:28:51 AM Janumet XR 100 mg-1,000 mg tablet,extended release RxNorm: 1 131670 1 Tablet(s) PO QD 05/12/2014 08/09/2014 Inactive [SAVINGS FOR UNI NSURED PATIENTS -- BIN:[id number], PCN: ASPROD1, Group: [id number], ID# [id number], Process claim through [employer], for questions: . THIS IS NOT INSURANCE.] Voltaren 1 % topical gel RxNorm: 347991 TOP BID 04/21/2014 5 Inactive Apply to affected areas 2-3 times daily as needed. Trilipix 135 mg capsule,delayed release RxNorm: 017631 1 Tablet(s) PO QD 1 Capsule(s) PO QD 04/21/2014 09/17/2014 Inactive may do 90 day f ill if desired Synthroid 137 mcg tablet RxNorm: 926372 1 Tablet(s) PO QD 03/30/2014 09/25/2014 Inactive [AttnRPh: Saving apply/adjudicate RxGRP: SG20 RxBIN:[id number] RxPCN:HT ID#:[id number]] Cipro 250 mg tablet RxNorm: 655135 1 Tablet(s) PO BID 03/30/201403/24 Inactive [SAVINGS FOR UNINSURED PATIENTS -- BIN:0 [id number], PCN: ASPROD1, Group: [id number], ID# [id number], Process claim through MedImpact, for questions: . THIS IS NOT INSURANCE.] Janumet XR 100 mg-1,000 mg tablet,extended release RxNorm: 1 323169 2 Tablet(s) PO QD 01/06/2014 01/05/2014 Inactive [SAVINGS FOR UNI NSURED PATIENTS -- BIN:[id number], PCN: ASPROD1, Group: [id number], ID# [id number], Process claim through Med[employer], for questions: . THIS IS NOT INSURANCE.] Janumet XR 100 mg-1,000 mg tablet,extended release RxNorm: 1 074975 1 Tablet(s) PO QD 01/06/2014 04/05/2014 Inactive [SAVINGS FOR UNI NSURED PATIENTS -- BIN:[id number], PCN: ASPROD1, Group: [id number], ID# [id number], Process claim through [employer], for questions: . THIS IS NOT INSURANCE.] propranolol 60 mg tablet RxNorm: 851918 1 Tablet(s) PO QD 12/28/2013 07/26/2014 Inactive [AttnRPh: Saving apply/adjudicate RxGRP: SG20 RxBIN:[id number] RxPCN:HT ID#:[id number]] Synthroid 150 mcg tablet RxNorm: 675807 1 Tablet(s) PO QD brand onl y 12/28/2013 04/20/2014 Inactive [AttnRPh: Saving apply/adjud icate RxGRP:SG20 RxBIN:[id number] RxPCN:HT ID#:[id number]] Vitamin D2 50,000 unit capsule RxNorm: 064132 1 Capsule (s) PO Take 1 capsule by mouth twice weekly 12/02/2013 05/17/2014 Inactive Lipitor 80 mg tablet RxNorm: 430115 1 Tablet(s) PO QD 11/24/201305/25 Inactive [AttnRPh: Saving apply/adjudicate RxGRP: SG20 RxBIN:[id number] RxPCN:HT ID#:[id number]] loratadine 10 mg tablet RxNorm: 059023 1 Tablet(s) PO BID 11/17/2013 07/12/2014 Inactive fluoxetine 20 mg capsule RxNorm: 552475 1 Capsule(s) PO QAM TAKE ONE CAPSULE BY MOUTH ONCE DAILY IN THE MORNING. 11/04/2013 01/10/2015 Inactive Generic For:PROZAC 20MG Generic For:PROZAC 20MG 06/23/2013 11:55:55 AM [AttnRPh: Saving apply/adjudicate RxGRP:SG20 RxBIN:[id number] RxPCN:HT ID#:[id number]] Vytorin 10 mg-80 mg tablet RxNorm: 3152508 Tablet(s) PO TAKE ONE TABLET BY MOUTH ONCE DAILY IN THE EVENING. 09/30/2013 11/23/2013 Inactive Trilipix 135 mg capsule,delayed release RxNorm: 484816 1 Capsul e(s) PO QD 07/15/2013 04/21/2014 Inactive may do 90 day fill i f desired Voltaren 1 % topical gel RxNorm: 342135 TOP BID 07/15/2013 4 Inactive Apply to affected areas 2-3 times daily as needed. Wellbutrin XL 300 mg 24 hr tablet, extended release RxNorm: 357993 1 Tablet(s) PO QAM 06/29/2013 04/03/2017 Inactive fluoxetine 20 mg capsule RxNorm: 635712 1 Capsule(s) PO QAM TAKE ONE CAPSULE BY MOUTH ONCE DAILY IN THE MORNING. 06/29/2013 11/04/2013 Inactive Generic For:PROZAC 20MG Generic For:PROZAC 20MG 06/23/2013 11:55:55 AM fluoxetine 20 mg capsule RxNorm: 400562 Capsule(s) PO T BRIA ONE CAPSULE BY MOUTH ONCE DAILY IN THE MORNING. 06/23/2013 06/28/2013 Inactive Gener ic For:PROZAC 20MG Generic For:PROZAC 20MG 06/23/2013 11:55:55 AM Synthroid 150 mcg tablet RxNorm: 657403 1 Tablet(s) PO QD brand onl y 06/08/2013 12/04/2013 Inactive Vytorin 10 mg-80 mg tablet RxNorm: 3530709 1 Tablet(s) PO QD 201209/05/2013 Inactive TAKE 1 TABLET BY MOUTH DAILY propranolol 60 mg tablet RxNorm: 438911 1 Tablet(s) PO QD 06/08/2013 12/04/2013 Inactive Pepcid 20 mg tablet RxNorm: 459476 Tablet(s) PO TAKE 1 TABLET BY MOUTH TWICE DAILY. 06/04/2013 11/23/2013 Inactive fluoxetine 20 mg capsule RxNorm: 517178 1 Capsule(s) PO QAM 013 06/22/2013 Inactive Wellbutrin XL 300 mg 24 hr tablet, extended release RxNorm: 990642 1 Tablet(s) PO QAM 05/26/2013 06/28/2013 Inactive Wellbutrin XL 150 mg 24 hr tablet, extended release RxNorm: 120215 1 Tablet(s) PO QD 05/15/2013 05/25/2013 Inactive Wellbutrin XL 150 mg 24 hr tablet, extended release RxNorm: 704217 1 Tablet(s) PO QD 05/15/2013 05/14/2013 Inactive Kombiglyze XR 5 mg-500 mg tablet,extended release RxNorm: 10 20993 1 Tablet(s) PO QD 05/07/2013 05/15/2013 Inactive cefdinir 300 mg capsule RxNorm: 066128 2 Capsule(s) PO QD 04/23/2013 05/02/2013 Inactive AttnRPh: Saving apply/adjudicate RxGRP:S G20 RxBIN:[id number] RxPCN: ID#:[id number] Pepcid 20 mg tablet RxNorm: 962304 Tablet(s) PO TAKE 1 TABLET BY MOUTH TWICE DAILY. 04/17/2013 06/13/2016 Inactive Pepcid 20 mg tablet RxNorm: 601296 1 Tablet(s) PO BID 04/06/201305/24 Inactive Vytorin 10-80 10 mg-80 mg tablet RxNorm: 101636 1 Tablet(s) PO QD 0 02/19/2013 06/08/2013 Inactive TAKE 1 TABLET BY MOUTH DAILY loratadine 10 mg tablet RxNorm: 072286 1 Tablet(s) PO BID 01/23/2013 07/21/2013 Inactive Synthroid 150 mcg tablet RxNorm: 516583 1 Tablet(s) PO QD brand onl y 12/02/2012 06/08/2013 Inactive propranolol 60 mg tablet RxNorm: 966795 1 Tablet(s) PO QD 12/02/2012 06/08/2013 Inactive Trilipix 135 mg capsule,delayed release RxNorm: 412165 1 Capsul e(s) PO QD 12/02/2012 05/30/2013 Inactive may do 90 day fill i f desired Pepcid 20 mg tablet RxNorm: 389505 1 Tablet(s) PO BID 11/27/201203/24 Inactive Effexor XR 150 mg capsule,extended release RxNorm: 465103 1 Cap kimi(s) PO QD 11/24/2012 05/14/2013 Inactive Vytorin 10-80 10 mg-80 mg tablet RxNorm: 999697 1 Tablet(s) PO QD 0 11/24/2012 2013 Inactive TAKE 1 TABLET BY MOUTH DAILY Vytorin 10-80 10 mg-80 mg tablet RxNorm: 470369 1 Tablet(s) PO QD 0 11/21/2012 11/24/2012 Inactive TAKE 1 TABLET BY MOUTH DAILY Effexor XR 150 mg capsule,extended release RxNorm: 683446 1 Cap kimi(s) PO QD 11/21/2012 11/24/2012 Inactive loratadine 10 mg tablet RxNorm: 8005005 1 Tablet(s) PO BID 11/12/19 13 01/23/2013 Inactive Vytorin 10-80 10 mg-80 mg tablet RxNorm: 594495 Tablet( s) PO TAKE 1 TABLET BY MOUTH ONCE DAILY. 10/15/2012 11/21/2012 Inactive Vytorin 10-80 10 mg-80 mg tablet RxNorm: 430894 1 Tablet(s) PO QD 0 10/15/2012 11/20/2012 Inactive TAKE 1 TABLET BY MOUTH DAILY Effexor XR 150 mg capsule,extended release RxNorm: 061507 1 Cap kimi(s) PO QD 10/15/2012 11/20/2012 Inactive Effexor XR 150 mg capsule,extended release RxNorm: 559533 Capsule(s) PO TAKE 1 CAPSULE BY MOUTH ONCE DAILY 10/15/2012 11/21/2012 Inactive azithromycin 250 mg tablet RxNorm: 232052 2 Tablet(s) PO QD 013 09/10/2012 Inactive Culturelle 10 billion cell capsule RxNorm: 607695 1 Cap kimi(s) PO BID for diarrhea maintenance 09/03/2012 10/02/2012 Inactive Medrol (Isaiah) 4 mg tablets in a dose pack RxNorm: 562653 Tablet(s) PO as directed 09/03/2012 07/11/2011 Active as directed Culturelle 10 billion cell capsule RxNorm: 351137 1 Capsule(s) PO BID 07/23/2012 08/21/2012 Inactive Vitamin D2 50,000 unit capsule RxNorm: 680392 Capsule(s ) PO TAKE 1 CAPSULE EVERY DAY SATURDAY THRU Saturday07/09/2012 08/20/2013 Inactive Vitamin D2 50,000 unit capsule RxNorm: 0407171 Capsule(s ) PO TAKE 1 CAPSULE EVERY DAY SATURDAY THRU Saturday07/07/2012 07/08/2012 Inactive Vitamin D2 50,000 unit capsule RxNorm: 1132732 Capsule(s ) PO TAKE 1 CAPSULE EVERY DAY SATURDAY THRU Saturday07/07/2012 07/06/2012 Inactive Vitamin D2 50,000 unit capsule RxNorm: 6243915 Capsule(s ) PO TAKE 1 CAPSULE EVERY DAY SATURDAY THRU Saturday06/27/2012 07/06/2012 Inactive Synthroid 150 mcg tablet RxNorm: 158787 1 Tablet(s) PO QD brand onl y 06/09/2012 12/02/2012 Inactive metformin 1,000 mg tablet RxNorm: 069821 1 Tablet(s) PO BID rep laces 500mg dose 05/20/2012 11/10/2012 Inactive propranolol 60 mg tablet RxNorm: 053528 1 Tablet(s) PO QD 04/23/2012 12/02/2012 Inactive Effexor XR 150 mg capsule,extended release RxNorm: 868434 1 Cap kimi(s) PO QD 04/04/2012 09/30/2012 Inactive Zyrtec 10 mg tablet RxNorm: 7312656 1 Tablet(s) PO QD 04/04/201203/24 Inactive Trilipix 135 mg capsule,delayed release RxNorm: 726023 1 Capsul e(s) PO QD 03/19/2012 12/02/2012 Inactive may do 90 day fill i f desired Vytorin 10-80 10 mg-80 mg tablet RxNorm: 399765 1 Tablet(s) PO QD 0 01/31/2012 07/28/2012 Inactive TAKE 1 TABLET BY MOUTH DAILY Voltaren 1 % topical gel RxNorm: 338142 TOP BID 01/25/2012 4 Inactive Apply to affected areas 2-3 times daily as needed. Synthroid 150 mcg tablet RxNorm: 756183 1 Tablet(s) PO QD brand onl y 01/02/2012 06/09/2012 Inactive metformin ER 1,000 mg 24 hr Tab Ctrl Rel RxNorm: 300044 1 Table t(s) PO QD 01/02/2012 05/19/2012 Inactive metformin ER 500 mg 24 hr Tab RxNorm: 967281 Tablet(s) PO 12/21/2011 01/01/2012 Inactive TAKE 1 TABLET BY MOUTH ONCE DAILY. Voltaren 1 % Topical Gel RxNorm: 240716 TOP BID 11/28/2011 2 Inactive Apply to affected areas 2-3 times daily as needed. propranolol 60 mg tablet RxNorm: 340333 1 Tablet(s) PO QD 10/17/2011 04/23/2012 Inactive Effexor XR 150 mg capsule,extended release RxNorm: 134119 1 Cap kimi(s) PO QD 09/13/2011 04/04/2012 Inactive Medrol (Isaiah) 4 mg tablets in a dose pack RxNorm: 011298 Tablet(s) PO as directed 09/04/2011 07/11/2011 Active as directed doxycycline hyclate 100 mg Tab RxNorm: 1585423 1 Tablet(s) PO BID 0 09/04/2011 09/13/2011 Inactive doxycycline monohydrate 100 mg Tab RxNorm: 6545023 1 Tablet(s) P O BID 07/25/2011 08/03/2011 Inactive prednisone 10 mg Tab RxNorm: 575671 1 Tablet(s) PO TID 07/25/201112/2011 Inactive Synthroid 150 mcg Tab RxNorm: 242037 1 Tablet(s) PO QD brand only 0 07/12/2011 01/02/2012 Inactive Vytorin 10-80 10 mg-80 mg Tab RxNorm: 566025 1 Tablet(s) PO QD 05/2601/31/2012 Inactive TAKE 1 TABLET BY MOUTH DAILY Vitamin D2 50,000 unit capsule RxNorm: 4169448 1 Capsule(s) PO Q D M-F 05/15/2011 06/26/2012 Inactive TAKE 1 CAPSULE BY [facility] DAILY SATURDAY THROUGH FRIDAYS Synthroid 150 mcg Tab RxNorm: 022574 1 Tablet(s) PO QD brand only 1 07/09/2010 07/11/2011 Inactive doxycycline monohydrate 100 mg Tab RxNorm: 2509752 1 Tablet(s) P O BID 04/25/2011 05/04/2011 Inactive Trilipix 135 mg capsule,delayed release RxNorm: 000087 1 Capsul e(s) PO QD 04/23/2011 03/19/2012 Inactive cefdinir 300 mg Cap RxNorm: 268042 1 Capsule(s) PO BID 04/04/2011 Inactive propranolol 60 mg Tab RxNorm: 552901 1 Tablet(s) PO QD 03/26/2011 Inactive Ultram 50 mg Tab RxNorm: 523773 1-2 Tablet(s) PO QID 03/22/201103/21 Active prn pain metformin ER 500 mg 24 hr Tab RxNorm: 617812 1 Tablet(s) PO QD 06/201006/21/2011 Inactive Synthroid 150 mcg Tab RxNorm: 021979 1 Tablet(s) PO QD 02/22/201112/2010 Inactive Vytorin 10-80 10 mg-80 mg Tab RxNorm: 695038 1 Tablet(s) PO QD 01/2303/13/2011 Inactive TAKE 1 TABLET BY MOUTH DAILY Trilipix 135 mg Cap RxNorm: 039968 1 Capsule(s) PO QD 01/10/201103/26 Inactive Effexor XR 150 mg 24 hr Cap RxNorm: 217564 1 Capsule(s) PO QD 01/0908/06/2011 Inactive Vitamin D 50,000 unit Cap RxNorm: 8262878 Capsule(s) PO 12/20/2010 Inactive TAKE 1 CAPSULE BY MOUTH DAILY Fridays Septra DS 800 mg-160 mg Tab RxNorm: 745098 1 Tablet(s) PO BID 12/0712/16/2010 Inactive mupirocin 2 % Ointment RxNorm: 688810 1 Application TOP BID Apply to affected area twice daily 12/07/2010 12/13/2010 Inactive Trilipix 135 mg Cap RxNorm: 850166 1 Capsule(s) PO QD 10/16/201003/26 Inactive Synthroid 150 mcg Tab RxNorm: 191634 1 Tablet(s) PO QD 10/09/201006/2010 Inactive metformin ER 500 mg 24 hr Tab RxNorm: 337570 1 Tablet(s) PO QD 09/2202/22/2011 Inactive Nexium 40 mg Cap RxNorm: 653913 1 Capsule(s) PO QD 10/05/2010 019 Inactive Vytorin 10-80 10 mg-80 mg Tab RxNorm: 276447 1 Tablet(s) PO QD 09/201002/12/2011 Inactive propranolol 60 mg Tab RxNorm: 473846 1 Tablet(s) PO QD 09/18/201008/2010 Inactive Synthroid 125 mcg Tab RxNorm: 778157 1 Tablet(s) PO QD 08/07/2010 Inactive Synthroid 125 mcg Tab RxNorm: 030786 1 Tablet(s) PO QD 08/07/2010 Inactive Voltaren 1 % Topical Gel RxNorm: 520227 TOP BID Apply t o affected areas 2-3 times daily as needed. 08/01/2010 11/28/2011 Inactive Voltaren 1 % Topical Gel RxNorm: 949579 TOP BID Apply t o affected areas 2-3 times daily as needed. 07/04/2010 07/31/2010 Inactive Advair Diskus 250 mcg-50 mcg/dose for Inhalation RxNorm: 135 9859 1 Puff(s) INH Q12H 07/04/2010 07/11/2011 Inactive Effexor XR 150 mg 24 hr Cap RxNorm: 440399 1 Capsule(s) PO QD 06/0801/03/2011 Inactive Synthroid 100 mcg Tab RxNorm: 472763 1 Tablet(s) PO QD 06/06/2010 Inactive Vitamin D 50,000 unit Cap RxNorm: 1172668 1 Capsule(s) PO QD M-F 05/15/2011 Inactive Synthroid 150 mcg Tab RxNorm: 612812 1 Tablet(s) PO 05/25/20102010 Inactive Vytorin 10-80 10 mg-80 mg Tab RxNorm: 617213 1 Tablet(s) PO QD 04/2509/25/2010 Inactive Trilipix 135 mg Cap RxNorm: 605513 1 Capsule(s) PO QD 04/17/201009/23 Inactive propranolol 60 mg Tab RxNorm: 808953 1 Tablet(s) PO QD 01/09/2010 Inactive Advair Diskus 250 mcg-50 mcg/dose for Inhalation RxNorm: 135 9859 1 Puff(s) INH Q12H 12/26/2009 07/04/2010 Inactive Advair Diskus 250 mcg-50 mcg/Dose for Inhalation RxNorm: 135 9859 1 Puff(s) INH Q12H 11/26/2009 12/25/2009 Inactive Synthroid 200 mcg Tab RxNorm: 465896 1 Tablet(s) PO QD 11/24/2009 Inactive Effexor XR 150 mg 24 hr Cap RxNorm: 400162 1 Capsule(s) PO QD 10/2705/24/2010 Inactive Lisinopril 10 mg Tab RxNorm: 682924 1 Tablet(s) PO QD 10/17/200909/23 Inactive Propranolol 60 mg Tab RxNorm: 746639 1 Tablet(s) PO QD 10/17/2009 Inactive Septra DS 160 mg-800 mg Tab RxNorm: 030380 1 Tablet(s) PO BID 10/0410/08/2009 Inactive Mupirocin 2 % Ointment RxNorm: 945430 TOP Q6-8H 10/04/2009 10/10/2009 Inactive Voltaren 1 % Topical Gel RxNorm: 527531 TOP BID Apply t o affected areas 2-3 times daily as needed. 09/21/2009 03/19/2010 Inactive Trilipix 135 mg Cap RxNorm: 541017 1 Capsule(s) PO QD 09/20/200902/23 Inactive Nexium 40 mg Cap RxNorm: 297745 1 Capsule(s) PO QD 09/19/2009 010 Inactive Tylenol Arthritis 650 mg Tab RxNorm: 7836551 2 Tablet(s) PO BID 09/21 Active Vitamin D3 5,000 unit tablet RxNorm: 680486 1 Tablet(s) PO QD 019 Active Synthroid 150 mcg tablet RxNorm: 690656 1 Tablet(s) PO QD 01/12/2015 01/11/2015 Inactive Synthroid 150 mcg tablet RxNorm: 599967 1 Tablet(s) PO Saturday and Saturday01/16/2018 01/15/2018 Inactive Vitamin D 2,000 unit Cap RxNorm: 1 Capsule(s) PO QD 01/30/201002/2010 Inactive Flexeril 5 mg tablet RxNorm: 088861 /2 to 1 Tablet(s) PO TID as needed for muscle spasm 06/10/2017 06/09/2017 Inactive Medrol (Isaiah) 4 mg Tabs in a Dose Pack RxNorm: 415956 Tablet(s) PO 0 09/04/2011 07/11/2011 Inactive as directed fenofibrate micronized 134 mg capsule RxNorm: 645871 1 Capsule( s) PO QD 06/03/2017 06/02/2017 Inactive Vitamin D2 50,000 unit capsule RxNorm: 371647 Capsule(s ) PO Take 1 capsule by mouth twice weekly 12/02/2013 12/01/2013 Inactive prednisone 20 mg tablet RxNorm: 082942 1 Tablet(s) PO BID 03/30/2014 03/29/2014 Inactive AttnRPh: Saving apply/adjudicate RxGRP:S G20 RxBIN:[id number] RxPCN:HT ID#:[id number]: Saving apply/adjudicate RxGRP:SG20 RxBIN:[id number] RxPCN:HT ID#:[id number] Soma 350 mg tablet RxNorm: 082320 1 Tablet(s) PO TID prn spasm 01/2310/08/2010 Inactive Lancets,Ultra Thin RxNorm: Miscellaneous Use to test blood sugar daily and as needed (Dx: E11.65) 02/28/2018 02/27/2018 Inactive pantoprazole 40 mg tablet,delayed release RxNorm: 054591 1 Tabl et(s) PO QD 08/21/2017 08/20/2017 Inactive Janumet XR 100 mg-1,000 mg tablet,extended release RxNorm: 1 832517 2 Tablet(s) PO QD 01/06/2014 01/05/2014 Inactive Contour Meter RxNorm: miscellaneous 02/27/2018 02/26/2018 Inactive Synthroid 200 mcg Tab RxNorm: 243513 1 Tablet(s) PO QD 11/24/200907/2009 Inactive Kombiglyze XR 5 mg-500 mg tablet,extended release RxNorm: 10 79648 1 Tablet(s) PO QD 05/07/2013 05/06/2013 Inactive Zithromax Z-Isaiah 250 mg tablet RxNorm: 096647 Tablet(s) PO as di rected 05/14/2013 05/13/2013 Inactive AttnRPh: Saving appl y/adjudicate RxGRP:SG20 RxBIN:[id number] RxPCN:HT ID#:[id number] Fish Oil 1,000 mg capsule RxNorm: 3 Capsule(s) PO QD 04/04/2017 Inactive Lasix Oral RxNorm: Oral 03/30/2014 03/29/2014 Inactive loratadine 10 mg tablet RxNorm: 471418 1 Tablet(s) PO QD 08/20/2017 0 08/19/2017 Inactive Vitamin D 5,000 unit Tab RxNorm: 1 Tablet(s) PO twice a week 1 08/07/2009 06/05/2010 Inactive permethrin 5 % Topical Cream RxNorm: 395167 TOP Use as directed 02/03/2013 Inactive Gabapentin 100 mg Tab RxNorm: 112430 1 Tablet(s) PO BID 04/12/2010 Inactive Voltaren 1 % topical gel RxNorm: 592442 TOP as needed 06/23/201805/26 Inactive Gabapentin 300 mg Cap RxNorm: 412905 1 Capsule(s) PO BID 07/12/2011 0 07/11/2011 Inactive Contour Test Strips RxNorm: Miscellaneous Test blood sug ar daily (Dx: E11.65) 02/28/2018 02/27/2018 Inactive Promethazine 25 mg Tab RxNorm: 002487 1 Tablet(s) PO Q6 -8H As needed for nausea and vomiting. 10/09/2010 10/08/2010 Inactive propranolol 20 mg tablet RxNorm: 266255 1 Tablet(s) PO BID 03/17/20 18 03/16/2018 Inactive Vitamin D 50,000 unit Cap RxNorm: 2903208 Capsule(s) PO 2 weekly 06/05/2010 Inactive Synthroid 175 mcg Tab RxNorm: 211578 1 Tablet(s) PO QD 07/12/2011 Inactive triamcinolone acetonide 0.1 % Ointment RxNorm: 8212546 T OP TID apply three times a day (sparingly) as needed for itching 04/04/2017 04/03/2017 Inactive Ultram 50 mg Tab RxNorm: 240625 1-2 Tablet(s) PO QID prn pain 03/2203/22/2011 Inactive Topamax 100 mg Tab RxNorm: 203684 1 Tablet(s) PO BID 10/04/200910/03 Inactive Vitamin D3 1000 units Capsule RxNorm: 3 Capsule(s) PO QD 0 06/05/2010 Inactive Singulair 10 mg tablet RxNorm: 128242 1 Tablet(s) PO QD 06/23/2018 Inactive Medication [...] Code Result Date S ervice Location SARS-CoV2 0751542 SARS-CoV2 PCR Detected 07/08/2021 Unkno wn GFR CALC 6081808 GFR Non Afr Amr >60 mL/min 01/26/2019 Un known GFR CALC 5368675 GFR Afr Amr >60 mL/min 01/26/2019 Unknow n COMPLETE BLOOD COUNT [id number] WBC 7.0 10e9/L 01/27/20 19 Unknown COMPLETE BLOOD COUNT [id number] RBC 4.52 10e12/L 2018 Unknown COMPLETE BLOOD COUNT 9125896 HEMOGLOBIN 14.0 g/dL 01/27/20 19 Unknown COMPLETE BLOOD COUNT [id number] HEMATOCRIT 42.6 % 01/27/20 19 Unknown COMPLETE BLOOD COUNT [id number] MCV 94.2 fL 9 Unknown COMPLETE BLOOD COUNT 5765073 MCH 31.0 pg 9 Unknown COMPLETE BLOOD COUNT 7007234 MCHC 32.9 g/dL 9 Unknown COMPLETE BLOOD COUNT 0030601 PLATELET COUNT 272 10e9/L 10/2018 Unknown COMPLETE BLOOD COUNT [id number] Mean Plt Volume 10.4 fL 10/2018 Unknown COMPLETE BLOOD COUNT 3042978 Neut Auto 53.9 % 9 Unknown COMPLETE BLOOD COUNT 5426135 Lymph Auto 33.8 % 01/27/20 19 Unknown COMPLETE BLOOD COUNT 5797301 Bandera Auto 9.1 % 9 Unknown COMPLETE BLOOD COUNT 3069316 RDW 13.2 % 9 Unknown COMPLETE BLOOD COUNT 0616184 Eos Auto 2.3 % 9 Unknown COMPLETE BLOOD COUNT 8633575 Baso Auto 0.9 % 9 Unknown COMPLETE BLOOD COUNT 1833953 Neutrophil Abs 3.77 10e9/L Unknown COMPLETE BLOOD COUNT 8307451 Lymphocyte Abs 2.37 10e9/L Unknown COMPLETE BLOOD COUNT [id number] Monocyte Abs 0.64 10e9/L 10/2018 Unknown COMPLETE BLOOD COUNT 2643260 Eosinophil Abs 0.16 10e9/L Unknown COMPLETE BLOOD COUNT 7100352 Basophil Abs 0.06 10e9/L 10/2018 Unknown COMPLETE BLOOD COUNT 0382427 RDW-SD 44.2 fL 9 Unknown COMPREHENSIVE METABOLIC 50616 AST 15 U/L 2018 Unknown COMPREHENSIVE METABOLIC 79534 ALT 18 U/L 2018 Unknown COMPREHENSIVE METABOLIC 09747 BUN 10 mg/dL 2018 Unknown COMPREHENSIVE METABOLIC 46880 ALBUMIN 4.1 g/dL 2018 Unknown COMPREHENSIVE METABOLIC 17463 CHLORIDE 100 mmol/L 01/26 Unknown COMPREHENSIVE METABOLIC 48219 Bili Total 0.4 mg/dL 01/26 Unknown COMPREHENSIVE METABOLIC 57550 ALK PHOS 57 U/L 2018 Unknown COMPREHENSIVE METABOLIC 38398 SODIUM 136 mmol/L 01/26 Unknown COMPREHENSIVE METABOLIC 36182 CREATININE 0.71 mg/dL 10/2018 Unknown COMPREHENSIVE METABOLIC 64475 CALCIUM 9.3 mg/dL 2018 Unknown COMPREHENSIVE METABOLIC 50317 POTASSIUM 4.4 mmol/L 01/26 Unknown COMPREHENSIVE METABOLIC 97884 Total Protein 6.7 g/dL Unknown COMPREHENSIVE METABOLIC 38553 Glucose 88 mg/dL 2018 Unknown COMPREHENSIVE METABOLIC 87684 Bicarbonate 27 mmol/L 10/2018 Unknown COMPREHENSIVE METABOLIC 60136 AGAP 9 mmol/L 2018 Unknown Procedures Procedure Codes Date URINALYSIS NONAUTO W/O SCOPE CPT-4: 85436 09/10/2022 URINALYSIS NONAUTO W/O SCOPE CPT-4: 54557 09/05/2022 RML URINE CULTURE/ COLONY COUNT CPT-4: 86075 09/06/19 23 RML URINE CULTURE/ COLONY COUNT CPT-4: 85871 06/29/19 23 THER/PROPH/DIAG INJ SC/IM CPT-4: 74583 04/18/2022 KETOROLAC TROMETHAMINE INJ CPT-4: J1885 04/18/2022 FLU 64 + VACC AIIV4 NO PRSRV 0.5ML IM CPT-4: 89223 ADMIN INFLUENZA VIRUS VAC CPT-4: G0008 04/05/2022 PPPS, subseq visit CPT-4: G0439 02/06/2022 DEXAMETHASONE SODIUM PHOS CPT-4: J1100 11/09/2021 THER/PROPH/DIAG INJ SC/IM CPT-4: 27567 11/09/2021 TRIAMCINOLONE ACET INJ NOS CPT-4: J3301 11/09/2021 CEFTRIAXONE SODIUM INJECTION CPT-4: J0696 10/30/2021 THER/PROPH/DIAG INJ SC/IM CPT-4: 28367 10/30/2021 INFLUENZA ASSAY W/OPTIC CPT-4: 29054 10/30/2021 THER/PROPH/DIAG INJ SC/IM CPT-4: 13522 09/05/2021 TRIAMCINOLONE ACET INJ NOS CPT-4: J3301 09/05/2021 INFLUENZA ASSAY W/OPTIC CPT-4: 78039 07/04/2021 SARS-CoV2 CPT-4: 2654054 07/04/2021 FLU VACC PRSV FREE INC ANTIG 65 AND OLDER CPT-4: 99507 03/29/2021 FLU VACC PRSV FREE INC ANTIG 65 AND OLDER CPT-4: 06211 03/29/2021 ADMIN INFLUENZA VIRUS VAC CPT-4: G0008 03/29/2021 DRAINAGE OF SKIN ABSCESS CPT-4: 35107 02/08/2021 PPPS, subseq visit CPT-4: G0439 01/03/2021 OCCULT BLOOD FECES CPT-4: 62623 07/13/2020 RML URINE CULTURE/ COLONY COUNT CPT-4: 47496 05/17/20 URINALYSIS NONAUTO W/O SCOPE CPT-4: 19564 05/17/2020 CEFTRIAXONE SODIUM INJECTION CPT-4: J0696 03/07/2020 THER/PROPH/DIAG INJ SC/IM CPT-4: 35284 03/07/2020 THER/PROPH/DIAG INJ SC/IM CPT-4: 27655 03/07/2020 METHYLPREDNISOLONE INJECTION CPT-4: J2930 03/07/2020 PPPS, subseq visit CPT-4: G0439 12/21/2019 RML URINE CULTURE/ COLONY COUNT CPT-4: 73488 09/11/19 20 CEFTRIAXONE SODIUM INJECTION CPT-4: J0696 09/08/2019 THER/PROPH/DIAG INJ SC/IM CPT-4: 70745 09/08/2019 THER/PROPH/DIAG INJ SC/IM CPT-4: 08524 09/07/2019 CEFTRIAXONE SODIUM INJECTION CPT-4: J0696 09/07/2019 THER/PROPH/DIAG INJ SC/IM CPT-4: 99986 09/07/2019 URINALYSIS NONAUTO W/O SCOPE CPT-4: 20415 09/02/2019 RML URINE CULTURE/ COLONY COUNT CPT-4: 79931 09/02/19 20 FLU VACC PRSV FREE INC ANTIG 65 AND OLDER CPT-4: 14992 04/15/2019 URINALYSIS NONAUTO W/O SCOPE CPT-4: 30891 04/15/2019 RML URINE CULTURE/ COLONY COUNT CPT-4: 94568 04/15/20 19 ADMIN INFLUENZA VIRUS VAC CPT-4: G0008 04/15/2019 FLU VACC PRSV FREE INC ANTIG 65 AND OLDER CPT-4: 87327 04/15/2019 THER/PROPH/DIAG INJ SC/IM CPT-4: 24247 04/07/2019 TRIAMCINOLONE ACET INJ NOS CPT-4: J3301 04/07/2019 DEXAMETHASONE SODIUM PHOS CPT-4: J1100 04/07/2019 URINALYSIS NONAUTO W/O SCOPE CPT-4: 10384 03/18/2019 RML URINE CULTURE/ COLONY COUNT CPT-4: 85778 03/18/20 19 ROUTINE VENIPUNCTURE CPT-4: 50651 01/26/2019 RML COMPREHEN METABOLIC PANEL CPT-4: 24511 01/26/2019 RML COMPLETE CBC W/AUTO DIFF WBC CPT-4: 26422 019 RML URINE CULTURE/ COLONY COUNT CPT-4: 23286 01/27/20 19 URINALYSIS NONAUTO W/O SCOPE CPT-4: 58783 01/26/2019 THER/PROPH/DIAG INJ SC/IM CPT-4: 29212 01/08/2019 TRIAMCINOLONE ACET INJ NOS CPT-4: J3301 01/08/2019 THER/PROPH/DIAG INJ SC/IM CPT-4: 81796 01/06/2019 METHYLPREDNISOLONE INJECTION CPT-4: J2930 01/06/2019 AIRWAY INHALATION TREATMENT CPT-4: 46145 01/06/2019 RML URINE CULTURE/ COLONY COUNT CPT-4: 91231 01/07/20 19 PPPS, subseq visit CPT-4: G0439 12/11/2018 URINALYSIS NONAUTO W/O SCOPE CPT-4: 83876 12/11/2018 RML URINE CULTURE/ COLONY COUNT CPT-4: 09256 12/12/19 19 CULTURE OTHR SPECIMN AEROBIC CPT-4: 02522 12/11/2018 OCCULT BLOOD FECES CPT-4: 58526 12/11/2018 THER/PROPH/DIAG INJ SC/IM CPT-4: 84800 10/07/2018 TRIAMCINOLONE ACET INJ NOS CPT-4: J3301 10/07/2018 DEXAMETHASONE SODIUM PHOS CPT-4: J1100 10/07/2018 THER/PROPH/DIAG INJ SC/IM CPT-4: 28924 10/16/2017 TRIAMCINOLONE ACET INJ NOS CPT-4: J3301 10/16/2017 THER/PROPH/DIAG INJ SC/IM CPT-4: 98332 10/16/2017 KETOROLAC TROMETHAMINE INJ CPT-4: J1885 10/16/2017 INFLUENZA ASSAY W/OPTIC CPT-4: 33743 07/25/2017 FLU VACC PRSV FREE INC ANTIG 65 AND OLDER CPT-4: 83416 04/04/2017 PNEUMOCOCCAL VACC 23 DANAY IM CPT-4: 44337 04/04/2017 PPPS, subseq visit CPT-4: G0439 04/04/2017 ADMIN INFLUENZA VIRUS VAC CPT-4: G0008 04/04/2017 ADMIN PNEUMOCOCCAL VACCINE CPT-4: G0009 04/04/2017 URINALYSIS NONAUTO W/O SCOPE CPT-4: 14097 06/05/2016 FLU VACC PRSV FREE INC ANTIG 65 AND OLDER CPT-4: 21375 05/01/2016 ADMIN INFLUENZA VIRUS VAC CPT-4: G0008 05/01/2016 URINALYSIS NONAUTO W/O SCOPE CPT-4: 89662 11/08/2015 URINALYSIS NONAUTO W/O SCOPE CPT-4: 22495 03/28/2015 ADMIN INFLUENZA VIRUS VAC CPT-4: G0008 03/28/2015 FLU VACC PRSV FREE INC ANTIG 65 AND OLDER CPT-4: 84605 03/28/2015 PRESCRIP TRANSMIT VIA ERX SY CPT-4: G8553 03/28/2015 PNEUMOCOCCAL VACC 13 DANAY IM CPT-4: 69755 02/08/2015 ADMIN PNEUMOCOCCAL VACCINE CPT-4: G0009 02/08/2015 PRESCRIP TRANSMIT VIA ERX SY CPT-4: G8553 02/08/2015 RML URINE CULTURE/ COLONY COUNT CPT-4: 48053 01/12/20 15 URINALYSIS NONAUTO W/O SCOPE CPT-4: 48052 01/11/2015 PRESCRIP TRANSMIT VIA ERX SY CPT-4: G8553 01/11/2015 PRESCRIP TRANSMIT VIA ERX SY CPT-4: G8553 11/24/2014 URINALYSIS NONAUTO W/O SCOPE CPT-4: 60655 10/27/2014 RML URINE CULTURE/ COLONY COUNT CPT-4: 73240 10/28/19 15 PRESCRIP TRANSMIT VIA ERX SY CPT-4: G8553 10/27/2014 CEFTRIAXONE SODIUM INJECTION CPT-4: J0696 09/23/2014 THER/PROPH/DIAG INJ SC/IM CPT-4: 25900 09/23/2014 URINALYSIS NONAUTO W/O SCOPE CPT-4: 05603 09/23/2014 RML URINE CULTURE/ COLONY COUNT CPT-4: 50577 09/24/19 15 PRESCRIP TRANSMIT VIA ERX SY CPT-4: G8553 09/23/2014 URINALYSIS NONAUTO W/O SCOPE CPT-4: 97363 03/30/2014 RML URINE CULTURE/ COLONY COUNT CPT-4: 91212 03/30/20 14 PRESCRIP TRANSMIT VIA ERX SY CPT-4: G8553 03/30/2014 PRESCRIP TRANSMIT VIA ERX SY CPT-4: G8553 11/24/2013 PRESCRIP TRANSMIT VIA ERX SY CPT-4: G8553 06/29/2013 PRESCRIP TRANSMIT VIA ERX SY CPT-4: G8553 05/26/2013 PRESCRIP TRANSMIT VIA ERX SY CPT-4: G8553 04/23/2013 THER/PROPH/DIAG INJ SC/IM CPT-4: 39352 03/05/2013 KETOROLAC TROMETHAMINE INJ CPT-4: J1885 03/05/2013 PRESCRIP TRANSMIT VIA ERX SY CPT-4: G8553 11/27/2012 PRESCRIP TRANSMIT VIA ERX SY CPT-4: G8553 11/11/2012 PRESCRIP TRANSMIT VIA ERX SY CPT-4: G8553 09/03/2012 PRESCRIP TRANSMIT VIA ERX SY CPT-4: G8553 07/23/2012 PRESCRIP TRANSMIT VIA ERX SY CPT-4: G8553 05/20/2012 PRESCRIP TRANSMIT VIA ERX SY CPT-4: G8553 04/04/2012 DESTRUCT PREMALG LESION (Cryosurgery) CPT-4: 90326 PRESCRIP TRANSMIT VIA ERX SY CPT-4: G8553 01/02/2012 PRESCRIP TRANSMIT VIA ERX SY CPT-4: G8553 09/04/2011 URINALYSIS NONAUTO W/O SCOPE CPT-4: 91337 07/31/2011 PRESCRIP TRANSMIT VIA ERX SY CPT-4: G8553 07/12/2011 PRESCRIP TRANSMIT VIA ERX SY CPT-4: G8553 05/09/2011 THER/PROPH/DIAG INJ SC/IM CPT-4: 83026 05/02/2011 KETOROLAC TROMETHAMINE INJ CPT-4: J1885 05/02/2011 PRESCRIP TRANSMIT VIA ERX SY CPT-4: G8553 04/25/2011 CUR TOBACCO NON-USER CPT-4: G8457 04/04/2011 PRESCRIP TRANSMIT VIA ERX SY CPT-4: G8553 04/04/2011 DRAIN/INJECT JOINT/BURSA CPT-4: 49877 03/01/2011 METHYLPREDNISOLONE 40 MG INJ CPT-4: J1030 03/01/2011 TRIAMCINOLONE ACET INJ NOS CPT-4: J3301 03/01/2011 DRAIN/INJECT JOINT/BURSA CPT-4: 13948 01/04/2011 METHYLPREDNISOLONE 40 MG INJ CPT-4: J1030 01/04/2011 TRIAMCINOLONE ACET INJ NOS CPT-4: J3301 01/04/2011 PRESCRIP TRANSMIT VIA ERX SY CPT-4: G8553 12/07/2010 PRESCRIP TRANSMIT VIA ERX SY CPT-4: G8553 10/09/2010 PRESCRIP TRANSMIT VIA ERX SY CPT-4: G8553 06/06/2010 DRAIN/INJECT JOINT/BURSA CPT-4: 85956 04/12/2010 TRIAMCINOLONE ACET INJ NOS CPT-4: J3301 04/12/2010 METHYLPREDNISOLONE 80 MG INJ CPT-4: J1040 04/12/2010 PRESCRIP TRANSMIT VIA ERX SY CPT-4: G8553 03/20/2010 THER/PROPH/DIAG INJ SC/IM CPT-4: 14996 01/30/2010 KETOROLAC TROMETHAMINE INJ CPT-4: J1885 01/30/2010 PRESCRIP TRANSMIT VIA ERX SY CPT-4: G8553 01/30/2010 DRAIN/INJECT JOINT/BURSA CPT-4: 33914 10/26/2009 TRIAMCINOLONE ACET INJ NOS CPT-4: J3301 10/26/2009 METHYLPREDNISOLONE 80 MG INJ CPT-4: J1040 10/26/2009 DRAINAGE OF SKIN ABSCESS CPT-4: 82550 10/04/2009 Vital Signs Date Vital 09/10/2022 Blood Pressure 1: 132/78 Code: 8480-6 Heart Rate 1: 74 bpm Respiratory Rate: 18 bpm SpO2: 95% Temperature: 36.2 (C) / 97.1 (F) We ight: 220 lbs Code: 99016-4 09/05/2022 Blood Pressure 1: 124/78 Code: 8480-6 Heart Rate 1: 65 bpm Respiratory Rate: 20 bpm SpO2: 97% Temperature: 36.7 (C) / 98.0 (F) We ight: 224 lbs Code: 19508-6 08/30/2022 Blood Pressure 1: 124/74 Code: 8480-6 Heart Rate 1: 74 bpm Respiratory Rate: 20 bpm SpO2: 96% Temperature: 36.3 (C) / 97.3 (F) We ight: 224 lbs Code: 82489-9 08/07/2022 Blood Pressure 1: 126/74 Code: 8480-6 Heart Rate 1: 73 bpm Respiratory Rate: 20 bpm SpO2: 97% Temperature: 36.2 (C) / 97.1 (F) We ight: 222 lbs Code: 49768-9 06/29/2022 Blood Pressure 1: 132/73 Code: 8480-6 BMI: 36.7 Code: 51781-7 Heart Rate 1: 74 bpm Height: 5'6" Code: 8302-2 SpO2: 96% Temperature: 3 6.4 (C) / 97.6 (F) Weight: 226 lbs Code: 53607-5 05/28/2022 Blood Pressure 1: 129/78 Code: 8480-6 BMI: 37.7 Code: 74959-3 Heart Rate 1: 72 bpm Height: 5'6" Code: 8302-2 SpO2: 95% Temperature: 3 6.2 (C) / 97.1 (F) Weight: 232 lbs Code: 01123-2 05/10/2022 Blood Pressure 1: 133/75 Code: 8480-6 BMI: 38.3 Code: 11527-4 Heart Rate 1: 68 bpm Height: 5'6" Code: 8302-2 SpO2: 98% Temperature: 3 6.2 (C) / 97.1 (F) Weight: 236 lbs Code: 77296-2 04/18/2022 Blood Pressure 1: 118/70 Code: 8480-6 Heart Rate 1: 86 bpm Respiratory Rate: 20 bpm SpO2: 96% Temperature: 36.6 (C) / 97.8 (F) We ight: 238 lbs Code: 47001-5 02/15/2022 Blood Pressure 1: 120/82 Code: 8480-6 Heart Rate 1: 88 bpm Respiratory Rate: 20 bpm SpO2: 98% Temperature: 36.1 (C) / 97.0 (F) We ight: 237 lbs Code: 77506-6 02/06/2022 Blood Pressure 1: 124/80 Code: 8480-6 BMI: 39.4 Code: 08816-0 Heart Rate 1: 76 bpm Height: 5'6" Code: 8302-2 Respiratory Rate: 20 bpm SpO2: 98% Temperature: 36.6 (C) / 97.9 (F) Weight: 242 lbs Code: 63038-0 02/01/2022 Blood Pressure 1: 144/100 Code: 8480-6 Heart Rat e 1: 108 bpm Respiratory Rate: 22 bpm SpO2: 96% Temperature: 36.4 (C) / 97.5 (F) 11/29/2021 Blood Pressure 1: 128/80 Code: 8480-6 Heart Rate 1: 56 bpm Respiratory Rate: 20 bpm SpO2: 97% Temperature: 36.7 (C) / 98.1 (F) We ight: 242 lbs Code: 90710-5 11/22/2021 Blood Pressure 1: 118/80 Code: 8480-6 Heart Rate 1: 84 bpm Respiratory Rate: 20 bpm SpO2: 99% Temperature: 36.3 (C) / 97.4 (F) 11/21/2021 Blood Pressure 1: 132/80 Code: 8480-6 Heart Rate 1: 98 bpm Respiratory Rate: 20 bpm SpO2: 99% Weight: 238 lbs Code: 39078 -7 11/09/2021 Blood Pressure 1: 136/86 Code: 8480-6 Heart Rate 1: 68 bpm Respiratory Rate: 20 bpm SpO2: 95% Temperature: 36.4 (C) / 97.5 (F) We ight: 244 lbs Code: 03971-8 10/31/2021 Blood Pressure 1: 128/80 Code: 8480-6 Heart Rate 1: 80 bpm Respiratory Rate: 28 bpm SpO2: 93% Temperature: 38.0 (C) / 100. 4 (F) 10/30/2021 Blood Pressure 1: 136/82 Code: 8480-6 Heart Rate 1: 120 bpm Respiratory Rate: 24 bpm SpO2: 95% Temperature: 38.0 (C) / 100. 4 (F) 09/05/2021 Blood Pressure 1: 118/84 Code: 8480-6 BMI: 38.5 Code: 57473-7 Heart Rate 1: 72 bpm Height: 5'7" Code: 8302-2 Respiratory Rate: 20 bpm SpO2: 95% Temperature: 36.3 (C) / 97.4 (F) Weight: 246 lbs Code: 82843-9 08/24/2021 Blood Pressure 1: 132/84 Code: 8480-6 Heart Rate 1: 76 bpm Respiratory Rate: 19 bpm SpO2: 98% Temperature: 36.7 (C) / 98.1 (F) We ight: Code: 89825-4 03/01/2021 Blood Pressure 1: 90/52 Code: 8480-6 Heart Rate 1: 66 bpm Respiratory Rate: 22 bpm SpO2: 97% 02/08/2021 Blood Pressure 1: 132/75 Code: 8480-6 Heart Rate 1: 74 bpm Respiratory Rate: 18 bpm SpO2: 98% Temperature: 36.3 (C) / 97.3 (F) We ight: 247 lbs Code: 81720-3 01/19/2021 Blood Pressure 1: 126/76 Code: 8480-6 Heart Rate 1: 76 bpm Respiratory Rate: 20 bpm SpO2: 98% Temperature: 37.1 (C) / 98.8 (F) We ight: 244 lbs Code: 98461-0 01/03/2021 Blood Pressure 1: 124/64 Code: 8480-6 BMI: 38.5 Code: 20693-9 Heart Rate 1: 76 bpm Height: 5'7" Code: 8302-2 Respiratory Rate: 20 bpm SpO2: 96% Temperature: 36.4 (C) / 97.6 (F) Weight: 246 lbs Code: 47336-3 11/29/2020 Blood Pressure 1: 119/68 Code: 8480-6 Heart Rate 1: 73 bpm Respiratory Rate: 20 bpm SpO2: 95% Temperature: 36.1 (C) / 96.9 (F) We ight: 245 lbs Code: 20701-9 09/29/2020 Blood Pressure 1: 136/79 Code: 8480-6 Heart Rate 1: 67 bpm Respiratory Rate: 15 bpm SpO2: 98% Temperature: 36.2 (C) / 97.1 (F) We ight: 237 lbs Code: 57351-7 09/19/2020 Blood Pressure 1: 135/82 Code: 8480-6 Heart Rate 1: 76 bpm Respiratory Rate: 17 bpm SpO2: 96% Temperature: 36.6 (C) / 97.8 (F) We ight: 238 lbs Code: 22687-3 08/10/2020 Blood Pressure 1: 126/82 Code: 8480-6 Heart Rate 1: 60 bpm Respiratory Rate: 20 bpm SpO2: 96% Temperature: 36.3 (C) / 97.3 (F) We ight: 238 lbs Code: 25779-5 08/01/2020 Temperature: 36.6 (C) / 97.8 (F) 07/13/2020 Blood Pressure 1: 132/80 Code: 8480-6 Heart Rate 1: 76 bpm Respiratory Rate: 20 bpm SpO2: 97% Temperature: 36.2 (C) / 97.2 (F) We ight: 228 lbs Code: 16066-4 07/05/2020 Temperature: 35.9 (C) / 96.7 (F) 06/22/2020 Blood Pressure 1: 134/82 Code: 8480-6 Heart Rate 1: 60 bpm Respiratory Rate: 20 bpm SpO2: 96% Temperature: 36.4 (C) / 97.6 (F) We ight: 235 lbs Code: 86800-2 05/17/2020 Blood Pressure 1: 141/72 Code: 8480-6 Heart Rate 1: 78 bpm Respiratory Rate: 16 bpm SpO2: 98% Temperature: 36.3 (C) / 97.3 (F) We ight: 232 lbs Code: 73250-3 03/14/2020 Blood Pressure 1: 126/92 Code: 8480-6 Heart Rate 1: 72 bpm Respiratory Rate: 22 bpm SpO2: 96% Temperature: 36.3 (C) / 97.4 (F) We ight: 225 lbs Code: 38598-8 03/07/2020 Blood Pressure 1: 124/86 Code: 8480-6 Heart Rate 1: 72 bpm Respiratory Rate: 24 bpm SpO2: 93% Temperature: 36.2 (C) / 97.1 (F) We ight: 227 lbs Code: 44846-9 12/21/2019 Blood Pressure 1: 114/72 Code: 8480-6 BMI: 36.2 Code: 28571-6 Heart Rate 1: 60 bpm Height: 5'7" Code: 8302-2 Respiratory Rate: 20 bpm SpO2: 97% Temperature: 36.7 (C) / 98.1 (F) Weight: 231 lbs Code: 11773-1 09/02/2019 Blood Pressure 1: 138/85 Code: 8480-6 Heart Rate 1: 76 bpm Respiratory Rate: 20 bpm SpO2: 96% Temperature: 36.3 (C) / 97.3 (F) We ight: 226 lbs Code: 93341-9 07/09/2019 Blood Pressure 1: 123/63 Code: 8480-6 BMI: 34.9 Code: 14856-1 Heart Rate 1: 64 bpm Height: 5'7" Code: 8302-2 Respiratory Rate: 17 bpm SpO2: 97% Temperature: 37.0 (C) / 98.6 (F) Weight: 223 lbs Code: 32937-5 04/15/2019 Blood Pressure 1: 110/82 Code: 8480-6 Heart Rate 1: 66 bpm SpO2: 98% Temperature: 36.1 (C) / 96.9 (F) Weight: 223 lbs Code: 11847-5 04/07/2019 Blood Pressure 1: 132/80 Code: 8480-6 Heart Rate 1: 68 bpm Temperature: 36.9 (C) / 98.4 (F) Weight: 222 lbs Code: 17133-1 03/25/2019 Blood Pressure 1: 108/70 Code: 8480-6 Heart Rate 1: 64 bpm Respiratory Rate: 20 bpm SpO2: 96% Temperature: 36.2 (C) / 97.2 (F) We ight: 221 lbs Code: 96925-8 03/18/2019 Blood Pressure 1: 138/82 Code: 8480-6 Heart Rate 1: 74 bpm SpO2: 99% Temperature: 36.1 (C) / 96.9 (F) Weight: 223 lbs Code: 53044-2 01/26/2019 Blood Pressure 1: 138/90 Code: 8480-6 Heart Rate 1: 68 bpm SpO2: 96% Temperature: 35.9 (C) / 96.7 (F) Weight: 227 lbs Code: 82054-2 01/08/2019 Blood Pressure 1: 134/78 Code: 8480-6 BMI: 36.8 Code: 86485-8 Heart Rate 1: 76 bpm Height: 5'7" Code: 8302-2 SpO2: 93% Temperature: 3 6.4 (C) / 97.6 (F) Weight: 235 lbs Code: 35819-2 01/06/2019 Blood Pressure 1: 116/80 Code: 8480-6 Heart Rate 1: 72 bpm Respiratory Rate: 20 bpm SpO2: 98% Temperature: 36.5 (C) / 97.7 (F) We ight: 232 lbs Code: 33296-9 12/11/2018 Blood Pressure 1: 120/82 Code: 8480-6 BMI: 36.2 Code: 83550-0 Heart Rate 1: 67 bpm Height: 5'7" Code: 8302-2 Respiratory Rate: 18 bpm SpO2: 96% Temperature: 35.9 (C) / 96.7 (F) Weight: 231 lbs Code: 65375-8 10/30/2018 Blood Pressure 1: 126/82 Code: 8480-6 Heart Rate 1: 80 bpm Respiratory Rate: 20 bpm SpO2: 96% Temperature: 36.8 (C) / 98.3 (F) We ight: 228 lbs Code: 95083-3 10/07/2018 Blood Pressure 1: 130/90 Code: 8480-6 Heart Rate 1: 76 bpm Respiratory Rate: 24 bpm SpO2: 97% Temperature: 36.0 (C) / 96.8 (F) We ight: 229 lbs Code: 44196-5 06/23/2018 Blood Pressure 1: 132/80 Code: 8480-6 Heart Rate 1: 72 bpm Respiratory Rate: 20 bpm SpO2: 98% Temperature: 36.7 (C) / 98.0 (F) We ight: 233 lbs Code: 51974-8 01/16/2018 Blood Pressure 1: 116/82 Code: 8480-6 Heart Rate 1: 72 bpm Respiratory Rate: 20 bpm SpO2: 96% Temperature: 36.9 (C) / 98.5 (F) We ight: 230 lbs Code: 75169-3 10/16/2017 Blood Pressure 1: 116/74 Code: 8480-6 BMI: 35.1 Code: 49289-9 Heart Rate 1: 76 bpm Height: 5'7" Code: 8302-2 Respiratory Rate: 20 bpm SpO2: 98% Temperature: 36.7 (C) / 98.1 (F) Weight: 224 lbs Code: 05738-4 09/12/2017 Blood Pressure 1: 124/78 Code: 8480-6 BMI: 34.6 Code: 13344-2 Heart Rate 1: 84 bpm Height: 5'7" Code: 8302-2 Respiratory Rate: 20 bpm SpO2: 95% Temperature: 36.6 (C) / 97.8 (F) Weight: 221 lbs Code: 81802-7 08/20/2017 Blood Pressure 1: 126/78 Code: 8480-6 Heart Rate 1: 92 bpm Height: 5'7" Code: 8302-2 Respiratory Rate: 20 bpm SpO2: 96% Temperature: 36 .9 (C) / 98.5 (F) 08/13/2017 Blood Pressure 1: 124/80 Code: 8480-6 BMI: 34.8 Code: 99546-6 Heart Rate 1: 80 bpm Height: 5'7" Code: 8302-2 Respiratory Rate: 20 bpm SpO2: 96% Temperature: 36.7 (C) / 98.0 (F) Weight: 222 lbs Code: 45332-6 07/29/2017 Blood Pressure 1: 114/70 Code: 8480-6 BMI: 34.5 Code: 05490-3 Heart Rate 1: 76 bpm Height: 5'7" Code: 8302-2 Respiratory Rate: 20 bpm SpO2: 97% Temperature: 36.9 (C) / 98.4 (F) Weight: 220 lbs Code: 45152-2 07/25/2017 Blood Pressure 1: 142/76 Code: 8480-6 BMI: 34.9 Code: 07060-8 Heart Rate 1: 92 bpm Height: 5'7" Code: 8302-2 Respiratory Rate: 18 bpm SpO2: 96% Temperature: 36.7 (C) / 98.1 (F) Weight: 223 lbs Code: 78933-7 06/10/2017 Blood Pressure 1: 136/82 Code: 8480-6 BMI: 34.3 Code: 14852-2 Heart Rate 1: 68 bpm Height: 5'7" Code: 8302-2 Respiratory Rate: 20 bpm SpO2: 96% Temperature: 36.7 (C) / 98.0 (F) Weight: 219 lbs Code: 04127-5 05/28/2017 Blood Pressure 1: 136/70 Code: 8480-6 BMI: 34.1 Code: 36433-4 Heart Rate 1: 84 bpm Height: 5'7" Code: 8302-2 Respiratory Rate: 20 bpm SpO2: 95% Temperature: 35.9 (C) / 96.6 (F) Weight: 218 lbs Code: 99247-3 04/04/2017 Blood Pressure 1: 122/78 Code: 8480-6 BMI: 33.4 Code: 29034-2 Heart Rate 1: 68 bpm Height: 5'7" Code: 8302-2 Respiratory Rate: 20 bpm SpO2: 96% Temperature: 36.7 (C) / 98.0 (F) Weight: 213 lbs Code: 30633-2 11/28/2016 Blood Pressure 1: 114/82 Code: 8480-6 BMI: 33.7 Code: 74830-3 Heart Rate 1: 72 bpm Height: 5'7" Code: 8302-2 Respiratory Rate: 20 bpm SpO2: 98% Temperature: 36.4 (C) / 97.6 (F) Weight: 215 lbs Code: 93739-3 06/05/2016 Blood Pressure 1: 104/68 Code: 8480-6 BMI: 33.7 Code: 76198-3 Heart Rate 1: 68 bpm Height: 5'7" Code: 8302-2 Respiratory Rate: 20 bpm SpO2: 96% Temperature: 36.8 (C) / 98.2 (F) Weight: 215 lbs Code: 58718-9 11/08/2015 Blood Pressure 1: 122/70 Code: 8480-6 BMI: 33.8 Code: 45874-9 Heart Rate 1: 80 bpm Height: 5'7" Code: 8302-2 Respiratory Rate: 20 bpm Temperatu re: 36.8 (C) / 98.2 (F) Weight: 216 lbs Code: 50914-8 07/19/2015 Blood Pressure 1: 122/70 Code: 8480-6 BMI: 33.0 Code: 72293-8 Heart Rate 1: 80 bpm Height: 5'7" Code: 8302-2 Respiratory Rate: 18 bpm Temperatu re: 35.9 (C) / 96.6 (F) Weight: 211 lbs Code: 03755-0 03/28/2015 Blood Pressure 1: 124/70 Code: 8480-6 BMI: 31.8 Code: 33149-8 Heart Rate 1: 72 bpm Height: 5'7" Code: 8302-2 Respiratory Rate: 20 bpm Temperatu re: 36.8 (C) / 98.2 (F) Weight: 203 lbs Code: 49368-9 02/08/2015 Blood Pressure 1: 98/58 Code: 8480-6 BMI: 32.1 C ode: 09457-3 Heart Rate 1: 84 bpm Height: 5'7" Code: 8302-2 Respiratory Rate: 20 bpm Temperatu re: 36.7 (C) / 98.0 (F) Weight: 205 lbs Code: 55263-2 01/11/2015 Blood Pressure 1: 118/78 Code: 8480-6 BMI: 32.1 Code: 96860-3 Heart Rate 1: 84 bpm Height: 5'7" Code: 8302-2 Respiratory Rate: 20 bpm Temperatu re: 36.6 (C) / 97.9 (F) Weight: 205 lbs Code: 58599-6 11/24/2014 Blood Pressure 1: 124/80 Code: 8480-6 BMI: 32.0 Code: 11870-8 Heart Rate 1: 76 bpm Height: 5'7" Code: 8302-2 Respiratory Rate: 20 bpm Temperatu re: 36.2 (C) / 97.1 (F) Weight: 204 lbs Code: 31689-5 11/19/2014 Blood Pressure 1: 132/78 Code: 8480-6 BMI: 32.7 Code: 76333-2 Heart Rate 1: 68 bpm Height: 5'7" Code: 8302-2 Respiratory Rate: 20 bpm SpO2: 98% Temperature: 36.7 (C) / 98.0 (F) Weight: 209 lbs Code: 20163-7 10/27/2014 Blood Pressure 1: 118/76 Code: 8480-6 BMI: 32.6 Code: 24762-4 Heart Rate 1: 64 bpm Height: 5'7" Code: 8302-2 Respiratory Rate: 20 bpm Temperatu re: 36.7 (C) / 98.0 (F) Weight: 208 lbs Code: 43856-1 09/23/2014 Blood Pressure 1: 118/68 Code: 8480-6 BMI: 34.3 Code: 96151-2 Heart Rate 1: 78 bpm Height: 5'7" Code: 8302-2 Respiratory Rate: 22 bpm Temperatu re: 36.4 (C) / 97.6 (F) Weight: 219 lbs Code: 07423-9 07/28/2014 Blood Pressure 1: 126/80 Code: 8480-6 BMI: 33.5 Code: 63417-5 Heart Rate 1: 76 bpm Height: 5'7" Code: 8302-2 Respiratory Rate: 20 bpm Temperatu re: 36.4 (C) / 97.6 (F) Weight: 214 lbs Code: 38674-6 03/30/2014 Blood Pressure 1: 128/80 Code: 8480-6 BMI: 35.2 Code: 91029-1 Heart Rate 1: 88 bpm Height: 5'7" Code: 8302-2 Respiratory Rate: 20 bpm Temperatu re: 36.4 (C) / 97.6 (F) Weight: 225 lbs Code: 20637-7 11/24/2013 Blood Pressure 1: 124/82 Code: 8480-6 BMI: 35.6 Code: 96602-0 Heart Rate 1: 80 bpm Height: 5'7" Code: 8302-2 Respiratory Rate: 22 bpm Temperatu re: 36.2 (C) / 97.1 (F) Weight: 227 lbs Code: 80700-7 08/25/2013 Blood Pressure 1: 128/80 Code: 8480-6 BMI: 37.4 Code: 74958-9 Heart Rate 1: 76 bpm Height: 5'7" Code: 8302-2 Respiratory Rate: 20 bpm Temperatu re: 36.6 (C) / 97.9 (F) Weight: 239 lbs Code: 20657-4 06/29/2013 Blood Pressure 1: 106/78 Code: 8480-6 BMI: 38.1 Code: 70706-2 Heart Rate 1: 80 bpm Height: 5'7" Code: 8302-2 Respiratory Rate: 20 bpm Temperatu re: 36.6 (C) / 97.9 (F) Weight: 243 lbs Code: 62279-3 05/26/2013 Blood Pressure 1: 122/80 Code: 8480-6 BMI: 39.3 Code: 90673-2 Heart Rate 1: 80 bpm Height: 5'7" Code: 8302-2 Respiratory Rate: 20 bpm Temperatu re: 36.9 (C) / 98.4 (F) Weight: 251 lbs Code: 87647-1 05/06/2013 Blood Pressure 1: 128/78 Code: 8480-6 BMI: 39.2 Code: 25359-4 Heart Rate 1: 76 bpm Height: 5'7" Code: 8302-2 Respiratory Rate: 22 bpm Temperatu re: 35.8 (C) / 96.4 (F) Weight: 250 lbs Code: 75491-0 04/23/2013 Blood Pressure 1: 132/92 Code: 8480-6 BMI: 39.6 Code: 14235-6 Heart Rate 1: 88 bpm Height: 5'7" Code: 8302-2 Respiratory Rate: 28 bpm SpO2: 97% Temperature: 36.5 (C) / 97.7 (F) Weight: 253 lbs Code: 97942-2 03/31/2013 Blood Pressure 1: 122/80 Code: 8480-6 BMI: 39.0 Code: 51081-0 Heart Rate 1: 84 bpm Height: 5'7" Code: 8302-2 Respiratory Rate: 20 bpm Temperatu re: 36.6 (C) / 97.8 (F) Weight: 249 lbs Code: 39137-8 03/05/2013 Blood Pressure 1: 120/80 Code: 8480-6 BMI: 39.2 Code: 58880-7 Heart Rate 1: 60 bpm Height: 5'7" Code: 8302-2 Respiratory Rate: 22 bpm Temperatu re: 35.9 (C) / 96.6 (F) Weight: 250 lbs Code: 58115-7 02/04/2013 Blood Pressure 1: 124/80 Code: 8480-6 BMI: 38.4 Code: 07403-0 Heart Rate 1: 80 bpm Height: 5'7" Code: 8302-2 Respiratory Rate: 20 bpm Temperatu re: 36.4 (C) / 97.6 (F) Weight: 245 lbs Code: 57863-5 11/27/2012 Blood Pressure 1: 127/83 Code: 8480-6 Te mperature: 36.1 (C) / 96.9 (F) Weight: 243 lbs 2 oz Code: 22839-9 11/11/2012 Blood Pressure 1: 126/82 Code: 8480-6 BMI: 37.4 Code: 14644-1 Heart Rate 1: 80 bpm Height: 5'7" Code: 8302-2 Respiratory Rate: 20 bpm Temperatu re: 36.8 (C) / 98.2 (F) Weight: 239 lbs Code: 70251-9 10/20/2012 Blood Pressure 1: 114/80 Code: 8480-6 BMI: 37.1 Code: 12158-7 Heart Rate 1: 104 bpm Height: 5'7" Code: 8302-2 Respiratory Rate: 20 bpm Temperatu re: 36.9 (C) / 98.4 (F) Weight: 237 lbs Code: 90400-3 09/03/2012 Blood Pressure 1: 118/72 Code: 8480-6 BMI: 37.3 Code: 14108-6 Heart Rate 1: 70 bpm Height: 5'7" Code: 8302-2 Temperature: 35.6 (C) / 96.0 (F) Weight: 238 lbs Code: 09886-0 07/23/2012 Blood Pressure 1: 124/78 Code: 8480-6 BMI: 36.8 Code: 56117-8 Heart Rate 1: 68 bpm Height: 5'7" Code: 8302-2 Temperature: 35.6 (C) / 96.0 (F) Weight: 235 lbs Code: 54293-9 05/20/2012 Blood Pressure 1: 112/70 Code: 8480-6 BMI: 37.1 Code: 75195-7 Heart Rate 1: 76 bpm Height: 5'7" Code: 8302-2 Respiratory Rate: 20 bpm Temperatu re: 36.7 (C) / 98.1 (F) Weight: 237 lbs Code: 19561-2 04/04/2012 Blood Pressure 1: 110/64 Code: 8480-6 BMI: 37.1 Code: 11103-2 Heart Rate 1: 68 bpm Height: 5'7" Code: 8302-2 Temperature: 36.1 (C) / 97.0 (F) Weight: 237 lbs Code: 77859-6 02/20/2012 Blood Pressure 1: 136/78 Code: 8480-6 BMI: 37.1 Code: 95416-5 Heart Rate 1: 72 bpm Height: 5'7" Code: 8302-2 Respiratory Rate: 20 bpm Temperatu re: 36.7 (C) / 98.0 (F) Weight: 237 lbs Code: 11719-4 01/02/2012 Blood Pressure 1: 122/70 Code: 8480-6 BMI: 37.1 Code: 01688-5 Heart Rate 1: 76 bpm Height: 5'7" Code: 8302-2 Respiratory Rate: 20 bpm Temperatu re: 37.0 (C) / 98.6 (F) Weight: 237 lbs Code: 72866-1 09/04/2011 Blood Pressure 1: 120/84 Code: 8480-6 BMI: 35.4 Code: 03350-1 Heart Rate 1: 68 bpm Height: 5'7" Code: 8302-2 Temperature: 30.0 (C) / 86.0 (F) Weight: 226 lbs Code: 91799-1 08/14/2011 Blood Pressure 1: 120/82 Code: 8480-6 BMI: 36.5 Code: 52618-3 Heart Rate 1: 80 bpm Height: 5'7" Code: 8302-2 Temperature: 36.6 (C) / 97.8 (F) Weight: 233 lbs Code: 75248-0 07/31/2011 Blood Pressure 1: 138/86 Code: 8480-6 BMI: 37.0 Code: 86613-6 Heart Rate 1: 94 bpm Height: 5'7" Code: 8302-2 Temperature: 35.4 (C) / 95.7 (F) Weight: 236 lbs Code: 06050-3 07/25/2011 Blood Pressure 1: 128/80 Code: 8480-6 BMI: 37.0 Code: 70296-8 Heart Rate 1: 80 bpm Height: 5'7" Code: 8302-2 Temperature: 35.6 (C) / 96.0 (F) Weight: 236 lbs Code: 65670-9 07/12/2011 Blood Pressure 1: 132/80 Code: 8480-6 BMI: 37.0 Code: 31836-6 Heart Rate 1: 96 bpm Height: 5'7" Code: 8302-2 Respiratory Rate: 20 bpm Temperatu re: 36.3 (C) / 97.3 (F) Weight: 236 lbs Code: 36228-8 05/09/2011 Blood Pressure 1: 106/78 Code: 8480-6 BMI: 36.6 Code: 15976-4 Heart Rate 1: 72 bpm Height: 5'7" Code: 8302-2 Respiratory Rate: 20 bpm Temperatu re: 36.4 (C) / 97.6 (F) Weight: 234 lbs Code: 77663-2 05/02/2011 Blood Pressure 1: 96/72 Code: 8480-6 BMI: 36.6 C ode: 30836-2 Heart Rate 1: 108 bpm Height: 5'7" Code: 8302-2 Respiratory Rate: 24 bpm Temperatu re: 36.7 (C) / 98.0 (F) Weight: 234 lbs Code: 52143-6 04/25/2011 Blood Pressure 1: 120/72 Code: 8480-6 BMI: 36.5 Code: 83842-5 Heart Rate 1: 70 bpm Height: 5'7" Code: 8302-2 Temperature: 36.7 (C) / 98.0 (F) Weight: 233 lbs Code: 48638-4 04/04/2011 Blood Pressure 1: 126/92 Code: 8480-6 BMI: 36.5 Code: 11225-6 Heart Rate 1: 84 bpm Height: 5'7" Code: 8302-2 Respiratory Rate: 20 bpm Temperatu re: 36.2 (C) / 97.2 (F) Weight: 233 lbs Code: 24856-8 03/01/2011 Blood Pressure 1: 132/78 Code: 8480-6 Heart Rate 1: 88 bpm Temperature: 36.8 (C) / 98.2 (F) Weight: 231 lbs Code: 04514-9 01/04/2011 Blood Pressure 1: 122/78 Code: 8480-6 BMI: 37.0 Code: 62921-0 Heart Rate 1: 80 bpm Height: 5'7" Code: 8302-2 Temperature: 37.0 (C) / 98.6 (F) Weight: 236 lbs Code: 04254-1 12/07/2010 Blood Pressure 1: 132/92 Code: 8480-6 Heart Rate 1: 98 bpm Temperature: 36.2 (C) / 97.2 (F) Weight: 237 lbs Code: 75728-6 10/09/2010 Blood Pressure 1: 128/80 Code: 8480-6 Heart Rate 1: 72 bpm Temperature: 36.5 (C) / 97.7 (F) Weight: 244 lbs Code: 36128-6 08/07/2010 Blood Pressure 1: 114/80 Code: 8480-6 Heart Rate 1: 72 bpm Temperature: 36.2 (C) / 97.1 (F) Weight: 245 lbs Code: 97149-4 06/06/2010 Blood Pressure 1: 132/86 Code: 8480-6 Heart Rate 1: 80 bpm Temperature: 36.8 (C) / 98.2 (F) Weight: 242 lbs Code: 70401-6 04/12/2010 Blood Pressure 1: 126/82 Code: 8480-6 Heart Rate 1: 72 bpm Temperature: 36.8 (C) / 98.2 (F) Weight: 237 lbs Code: 53275-0 03/20/2010 Blood Pressure 1: 124/78 Code: 8480-6 Heart Rate 1: 76 bpm Temperature: 36.1 (C) / 97.0 (F) Weight: 239 lbs Code: 19852-1 01/30/2010 Blood Pressure 1: 118/80 Code: 8480-6 Heart Rate 1: 84 bpm Temperature: 37.1 (C) / 98.7 (F) Weight: 239 lbs Code: 52701-9 01/09/2010 Blood Pressure 1: 120/72 Code: 8480-6 BMI: 36.8 Code: 57910-1 Heart Rate 1: 80 bpm Height: 5'7" Code: 8302-2 Temperature: 36.1 (C) / 97.0 (F) Weight: 235 lbs Code: 73867-1 11/07/2009 Blood Pressure 1: 140/36 Cod e: 8480-6 10/26/2009 Blood Pressure 1: 126/82 Code: 8480-6 BMI: 36.9 Code: 17014-8 Heart Rate 1: 84 bpm Height: 5'7" Code: 8302-2 Temperature: 36.5 (C) / 97.7 (F) Weight: 234 lbs Code: 42552-6 10/17/2009 Blood Pressure 1: 140/88 Code: 8480-6 BMI: 36.3 Code: 79840-9 Heart Rate 1: 88 bpm Height: 5'7" Code: 8302-2 Temperature: 36.7 (C) / 98.0 (F) Weight: 232 lbs Code: 42172-1 10/04/2009 Blood Pressure 1: 140/90 Code: 8480-6 BMI: 36.3 Code: 20157-7 Heart Rate 1: 84 bpm Height: 5'7" Code: 8302-2 Temperature: 36.4 (C) / 97.6 (F) Weight: 232 lbs Code: 12108-3 09/21/2009 Blood Pressure 1: 136/82 Code: 8480-6 BMI: 36.3 Code: 15225-4 Heart Rate 1: 88 bpm Height: 5'7" Code: 8302-2 Temperature: 35.8 (C) / 96.4 (F) Weight: 232 lbs Code: 89276-3 Functional Status No Functional Status data Reason [...] 09/04/2011 chest congestion 09/04/2011 follow up 08/14/[facility] 08/14/2011 venous thrombosis 08/14/2011 abdominal pain [...] Encounter Performer Location Location Address Codes Date ([id number]) OFFICE/OUTPATIENT VISIT EST Diagnosis: Dehydration[ICD10: E86.0] Diagnosis: Acute cystitis[ICD10: N30.00] Marlene VANESSA DO [employer] [address] [place] [id number] CPT-4: 94554 09/10/2022 ([id number]) OFFICE/OUTPATIENT VISIT EST Diagnosis: Acute cystitis[ICD10: N30.00] Marlene VANESSA DO [employer] [address] [place] [address] CPT-4: 10696 09/05/2022 ([id number]) OFFICE/OUTPATIENT VISIT EST Diagnosis: Degeneration of lumbar or lumbosacral intervertebral disc[ICD10: M51.37] Diagnosis: Cervicalgia[ICD10: M54.2] Marlene ELAM [facility] [address] [place] [address] CPT-4: 97655 08/30/2022 ([id number]) OFFICE/OUTPATIENT VISIT EST Diagnosis: Hypothyroidism[ICD10: E03.9] Diagnosis: Essential (primary) hypertension[ICD10: I10] Diagnosis: Mixed hyperlipidemia[ICD10: E78.2] Diagnosis: Stress at home[ICD10: F43.9] Jayna MORILLOLINE TracyPaige JANISER DO [address] [address] CPT-4: 57852 08/07/2022 ([id number]) OFFICE/OUTPATIENT VISIT EST Diagnosis: Acute cystitis[ICD10: N30.00] Marlene MolinaPaige NADIE DO [address] [address] CPT-4: 74362 06/29/2022 ([id number]) OFFICE/OUTPATIENT VISIT EST Diagnosis: Depression[ICD10: F32.A] Diagnosis: Hypothyroidism[ICD10: E03.9] Jayna Oremarialuisa GUTIERREZ TracyPaige ANDIE DO [address] [address] CPT-4: 36919 05/28/2022 ([id number]) OFFICE/OUTPATIENT VISIT EST Diagnosis: Depression[ICD10: F32.A] Diagnosis: Fatigue[ICD10: R53.83] Diagnosis: Hypothyroidism[ICD10: E03.9] Diagnosis: Hyperglycemia[ICD10: R73.9] Jayna Jessicamarialuisa PUCKETT DO [address] [address] CPT-4: 13531 05/10/2022 ([id number]) OFFICE/OUTPATIENT VISIT EST Diagnosis: Migraine, intractable[ICD10: G43.919] Marlene VILLARREALEMILIO GERBER TracyPaige ANDIE DO [address] [address] CPT-4: 94968 04/18/2022 ([id number]) NURSE/OUTPATIENT VISIT EST Diagnosis: FLU VACCINE[ICD10: Z23] Jayna Jessicamarialuisa GUTIERREZ TracyPaige JESSICAND ER DO [address] [address] CPT-4: 34466 04/05/2022 ([id number]) OFFICE/OUTPATIENT VISIT EST Diagnosis: Allergic rhinitis[ICD10: J30.9] Diagnosis: Acute sinusitis[ICD10: J01.90] 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] Jayna Sanchez JESSICAMARIALUISA DO [address] [address] CPT-4: 05572 02/15/2022 ([id number]) Annual depression screening, 15 minutes Diagnosis: Encounter for general adult medical examination without abnormal findings[ICD10: Z00.00] Diagnosis: Essential (primary) hypertension[ICD10: I10] Diagnosis: Mixed hyperlipidemia[ICD10: E78.2] Diagnosis: Hypothyroidism, unspecified[ICD10: E03.9] Diagnosis: Chronic obstructive pulmonary disease, unspecified[ICD10: J44.9] Jayna VANESSA [address] [address] CPT-4: G0444 02/06/2022 ([id number]) OFFICE/OUTPATIENT VISIT EST Diagnosis: 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] Diagnosis: Vision changes[ICD10: H53.9] Latasha Rosashoa VANESSA [address] [address] CPT-4: 24312 02/01/2022 ([id number]) OFFICE/OUTPATIENT VISIT EST Diagnosis: Diarrhea[ICD10: R19.7] Diagnosis: Cough[ICD10: R05.9] Jayna VANESSA [address] [address] CPT-4: 37757 11/30/19 ([id number]) OFFICE/OUTPATIENT VISIT EST Diagnosis: Post-viral cough syndrome[ICD10: R05.8] Diagnosis: Otalgia of both ears[ICD10: H92.03] Diagnosis: Diarrhea[ICD10: R19.7] Jayna Villalba [address] [address] CPT-4: 68315 11/22/2021 ([id number]) OFFICE/OUTPATIENT VISIT EST Diagnosis: Diarrhea of presumed infectious origin[ICD10: R19.7] Diagnosis: Altered taste[ICD10: R43.2] Diagnosis: Chronic bronchitis[ICD10: J42] Diagnosis: History of recent pneumonia[ICD10: Z87.01] Latasha VANESSA DO [address] [address] CPT- 4: 32209 11/21/2021 ([id number]) OFFICE/OUTPATIENT VISIT EST Diagnosis: Serous otitis media[ICD10: H65.90] Diagnosis: Postnasal drip[ICD10: R09.82] Diagnosis: Pneumonia[ICD10: J18.9] Jayna BRUCE ER DO [address] [address] CPT-4: 48654 11/09/2021 ([id number]) NO CHARGE Diagnosis: Pneumonia[ICD10: J18.9] Diagnosis: Respiratory distress[ICD10: R06.03] Jayna BRUCEER DO [address] [address] CPT-4: 30534 10/31/2021 ([id number]) OFFICE/OUTPATIENT VISIT EST Diagnosis: Vertigo[ICD10: R42] Diagnosis: Nausea[ICD10: R11.0] Diagnosis: Pneumonia[ICD10: J18.9] Jayna BRUCE ER DO [address] [address] CPT-4: 82870 10/30/2021 ([id number]) OFFICE/OUTPATIENT VISIT EST Diagnosis: Cervicalgia[ICD10: M54.2] Jayna GREENBERG NDER DO [address] [address] CPT-4: 88915 09/05/2021 ([id number]) OFFICE/OUTPATIENT VISIT EST Diagnosis: 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] Diagnosis: Seronegative rheumatoid arthritis[ICD10: M06.00] Latasha VANESSA DO [address] [address] CPT- 4: 80224 08/24/2021 ([id number]) OFFICE/OUTPATIENT VISIT EST Diagnosis: Upper respiratory infection[ICD10: J06.9] Diagnosis: Contact with and (suspected) exposure to other viral communicable diseases[ICD10: Z20.828] Latasha VANESSA DO [address] [address] CPT-4: 78346 07/04/2021 ([id number]) NURSE/OUTPATIENT VISIT EST Diagnosis: FLU VACCINE[ICD10: Z23] Jayna JIANG [address] [address] CPT-4: 25553 03/29/2021 ([id number]) OFFICE/OUTPATIENT VISIT EST Diagnosis: Vasovagal episode[ICD10: R55] Diagnosis: Orthostatic hypotension[ICD10: I95.1] Latasha VANESSA DO [address] [address] CPT-4: 96078 03/01/2021 ([id number]) OFFICE/OUTPATIENT VISIT EST Diagnosis: Sebaceous cyst of right axilla[ICD10: L72.3] Latasha VANESSA DO [address] [address] CPT- 4: 95292 02/08/2021 ([id number]) OFFICE/OUTPATIENT VISIT EST Diagnosis: Contact dermatitis[ICD10: L25.9] Jayna VANESSA DO [address] [address] CPT-4: 82117 01/19/2021 ([id number]) OFFICE/OUTPATIENT VISIT EST Diagnosis: Upper respiratory infection[ICD10: J06.9] Diagnosis: COPD exacerbation[ICD10: J44.1] Latasha VANESSA DO [address] [address] CPT-4: 74087 11/29/2020 ([id number]) OFFICE/OUTPATIENT VISIT EST Diagnosis: Sinusitis[ICD10: J32.9] Diagnosis: Acute pansinusitis, recurrence not specified[ICD10: J01.40] Latasha VANESSA DO [facility] [address] [place] [address] CPT-4: 57353 09/29/2020 OFFICE/OUTPATIENT VISIT EST Diagnosis: Other seasonal allergic rhinitis[ICD10: J30.2] Diagnosis: Chronic bronchitis[ICD10: J42] Diagnosis: 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] Diagnosis: Middle ear effusion[ICD10: H65.90] Diagnosis: Fluid level behind tympanic membrane of both ears[ICD10: H65.93] Latasha VANESSA DO [facility] [address] [place] [address] CPT-4: 53924 09/19/2020 ([id number]) OFFICE/OUTPATIENT VISIT EST Diagnosis: Right-sided tinnitus[ICD10: H93.11] Jayna VANESSA DO [address] [address] CPT-4: 37775 08/10/2020 ([id number]) OFFICE/OUTPATIENT VISIT EST Diagnosis: Dysfunction of right eustachian tube[ICD10: H69.81] Diagnosis: Right-sided tinnitus[ICD10: H93.11] Jayna [facility] [address] [place] [address] CPT-4: 60656 2020 ([id number]) OFFICE/OUTPATIENT VISIT EST Diagnosis: Pyelonephritis[ICD10: N12] Diagnosis: Anemia[ICD10: D64.9] Diagnosis: Blood in stool[ICD10: K92.1] Jayna VANESSA DO [facility] [address] [place] [address] CPT-4: 10501 07/13/2020 ([id number]) OFFICE/OUTPATIENT VISIT EST Diagnosis: Acute gastroenteritis[ICD10: K52.9] Jayna VANESSA DO [facility] [address] [place] [address] CPT-4: 42986 07/05/2020 ([id number]) OFFICE/OUTPATIENT VISIT EST Diagnosis: Essential hypertension[ICD10: I10] Diagnosis: Hypothyroidism, unspecified[ICD10: E03.9] Diagnosis: Metabolic syndrome[ICD10: E88.81] Diagnosis: Mixed hyperlipidemia[ICD10: E78.2] Diagnosis: Jmmhd-8-lxkearsqnrm 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] Jayna GREENBERGNDAPOLINAR [address] [address] CPT- 4: 54967 06/22/2020 ([id number]) OFFICE/OUTPATIENT VISIT EST Diagnosis: Urinary tract infection[ICD10: N39.0] Jayna VILLARREALEMILIO BUZZ VANESSA [address] [address] CPT-4: 49660 05/17/2020 ([id number]) OFFICE/OUTPATIENT VISIT EST Diagnosis: Right pulmonary embolus[ICD10: I26.99] Jayna Vanessa NORRIS StonerBUZZ SPaige GREENBERGNDER [address] [address] CPT-4: 12880 03/14/2020 ([id number]) OFFICE/OUTPATIENT VISIT EST Diagnosis: COVID-19[ICD10: U07.1] Diagnosis: Pneumonia[ICD10: J18.9] Diagnosis: Dyspnea[ICD10: R06.00] Jayna Villalba [address] [address] CPT-4: 56008 03/07/2020 ([id number]) OFFICE/OUTPATIENT VISIT EST Diagnosis: Upper respiratory infection[ICD10: J06.9] Genesis Jolene MUNOZBUZZ S. ORENDER DO [address] [address] CPT-4: 89635 02/11/2020 ([id number]) OFFICE/OUTPATIENT VISIT EST Diagnosis: Dermatitis[ICD10: L30.9] Diagnosis: Urticaria[ICD10: L50.9] Jayna Oreleydaapolinar [facility] [address] [place] [address] CPT-4: 14283 09/29/2019 ([id number]) OFFICE/OUTPATIENT VISIT EST Diagnosis: Bone spur of right foot[ICD10: M77.51] Diagnosis: Recurrent UTI[ICD10: N39.0] Diagnosis: MRSA (methicillin resistant staph aureus) culture positive[ICD10: Z22.322] Jayna [facility] [address] [place] [address] CPT-4: 33401 09/14/2019 ([id number]) NURSE/OUTPATIENT VISIT EST Diagnosis: Urinary tract infection[ICD10: N39.0] Jayna VANESSA DO [facility] [address] [place] [address] CPT-4: 72996 09/11/2019 ([id number]) NURSE/OUTPATIENT VISIT EST Diagnosis: Urinary tract infection, site not specified[ICD10: N39.0] Jayna VANESSA DO [address] [address] CPT-4: 89285 09/08/2019 ([id number]) NURSE/OUTPATIENT VISIT EST Diagnosis: Urinary tract infection, site not specified[ICD10: N39.0] Jayna VANESSA DO [facility] [address] [place] [address] CPT-4: 58825 09/07/2019 ([id number]) OFFICE/OUTPATIENT VISIT EST Diagnosis: Pelvic pain in female[ICD10: R10.2] Diagnosis: Urinary frequency[ICD10: R35.0] Genesis VANESSA DO [facility] [address] [place] [address] CPT-4: 24293 09/02/2019 ([id number]) OFFICE/OUTPATIENT VISIT EST Diagnosis: Sinusitis[ICD10: J32.9] Genesis BRUCE ER DO [facility] [address] [place] [address] CPT-4: 80045 07/09/2019 ([id number]) OFFICE/OUTPATIENT VISIT EST Diagnosis: UTI (urinary tract infection)[ICD10: N39.0] Diagnosis: FLU VACCINE[ICD10: Z23] [facility] [address] [place] [address] CPT-4: 40811 04/15/2019 ([id number]) OFFICE/OUTPATIENT VISIT EST Diagnosis: Pain in right leg[ICD10: M79.604] [facility] [address] [place] [address] CPT-4: 56837 04/07/2019 ([id number]) OFFICE/OUTPATIENT VISIT EST Diagnosis: Diverticulitis of large intestine without perforation or abscess without bleeding[ICD10: K57.32] Diagnosis: Cystitis[ICD10: N30.90] Jayna [facility] [address] [place] [address] CPT-4: 93261 03/25/2019 ([id number]) OFFICE/OUTPATIENT VISIT EST Diagnosis: Abdominal pain[ICD10: R10.9] Diagnosis: Cystitis[ICD10: N30.90] Jayna [facility] [address] [place] [address] CPT-4: 94087 03/18/2019 ([id number]) OFFICE/OUTPATIENT VISIT EST Diagnosis: Diverticulitis of large intestine without perforation or abscess without bleeding[ICD10: K57.32] Diagnosis: Generalized abdominal pain[ICD10: R10.84] Diagnosis: Urinary tract infection, site not specified[ICD10: N39.0] [facility] [address] [place] [address] CPT-4: 05125 01/26/2019 ([id number]) OFFICE/OUTPATIENT VISIT EST Diagnosis: Mild intermittent asthma with (acute) exacerbation[ICD10: J45.21] Diagnosis: Allergic rhinitis due to pollen[ICD10: J30.1] Jayna [facility] [address] [place] [address] CPT- 4: 12386 01/08/2019 ([id number]) OFFICE/OUTPATIENT VISIT EST Diagnosis: Mild intermittent asthma with (acute) exacerbation[ICD10: J45.21] Diagnosis: URI, ACUTE[ICD10: J06.9] Diagnosis: Urinary tract infection, site not specified[ICD10: N39.0] Jayna VANESSA DO [facility] [address] [place] [address] CPT-4: 19399 01/06/2019 ([id number]) OFFICE/OUTPATIENT VISIT EST Diagnosis: Benign paroxysmal vertigo, bilateral[ICD10: H81.13] Diagnosis: Migraine without aura, not intractable, without status migrainosus[ICD10: G43.009] Jayna VANESSA DO [facility] [address] [place] [address] CPT-4: 72212 10/30/2018 ([id number]) OFFICE/OUTPATIENT VISIT EST Diagnosis: Acute bronchitis, unspecified[ICD10: J20.9] Diagnosis: Cough[ICD10: R05] Diagnosis: Other seasonal allergic rhinitis[ICD10: J30.2] Stacey VANESSA DO [address] [address] CPT- 4: 51471 10/07/2018 ([id number]) OFFICE/OUTPATIENT VISIT EST Diagnosis: Pain in unspecified joint[ICD10: M25.50] Diagnosis: Pain in right ankle and joints of right foot[ICD10: M25.571] Diagnosis: Other specified disorders of bone density and structure, unspecified site[ICD10: M85.80] Jayna Andie MORILLOLINE Daniel VANESSA DO [address] [address] CPT-4: 10524 06/23/2018 ([id number]) OFFICE/OUTPATIENT VISIT EST Diagnosis: Hypothyroidism, unspecified[ICD10: E03.9] Diagnosis: Mixed hyperlipidemia[ICD10: E78.2] Jayna Andie CHERELLEMINTAMI ALVARENGA Daniel VANESSA DO [address] [address] CPT-4: 55046 01/16/2018 ([id number]) OFFICE/OUTPATIENT VISIT EST Diagnosis: Cervicalgia[ICD10: M54.2] Genesis ELAM DO [address] [address] CPT-4: 93328 10/16/2017 ([id number]) OFFICE/OUTPATIENT VISIT EST Diagnosis: Headache[ICD10: R51] Diagnosis: Dizziness and giddiness[ICD10: R42] Jayna Andie FLAKITO GREENBER[facility]NDER DO [address] [address] CPT-4: 49494 09/12/2017 OFFICE/OUTPATIENT VISIT EST Diagnosis: Cough[ICD10: R05] Genesis BRUCEER DO [facility] [address] [place] [address] CPT-4: 91103 08/20/2017 ([id number]) OFFICE/OUTPATIENT VISIT EST Diagnosis: COUGH[ICD10: R05] Jayna BRUCEER DO [address] [address] CPT-4: 79798 08/13/19 ([id number]) OFFICE/OUTPATIENT VISIT EST Diagnosis: Acute bronchospasm[ICD10: J98.01] Jayna Orendapolinar GREENBERGNDER DO [address] [address] CPT-4: 40088 07/29/2017 OFFICE/OUTPATIENT VISIT EST Diagnosis: Influenza due to identified novel influenza A virus with other respiratory manifestations[ICD10: J09.X2] [facility] [address] [place] [address] CPT-4: 71122 07/25/2017 ([id number]) OFFICE/OUTPATIENT VISIT EST Diagnosis: Pain in unspecified joint[ICD10: M25.50] Jayna [facility] [address] [place] [address] CPT- 4: 66035 06/10/2017 OFFICE/OUTPATIENT VISIT EST Diagnosis: Acute bronchitis, unspecified[ICD10: J20.9] Genesis VANESSA [address] [address] CPT- 4: 62702 05/28/2017 ([id number]) OFFICE/OUTPATIENT VISIT EST Diagnosis: Hypothyroidism, unspecified[ICD10: E03.9] Diagnosis: Mixed hyperlipidemia[ICD10: E78.2] Diagnosis: Yeqxe-9-ttamemfhiia 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] Diagnosis: Sebaceous cyst[ICD10: L72.3] Jayna Bruceapolinar JAYNA Daniel VANESSA [address] [address] CPT-4: 74429 11/28/2016 ([id number]) OFFICE/OUTPATIENT VISIT EST Diagnosis: Right upper quadrant pain[ICD10: R10.11] Diagnosis: Epigastric pain[ICD10: R10.13] Jayna Jessicamarialuisa JAYNA Tracy Paige ANDIE [address] [address] CPT-4: 38859 06/05/2016 ([id number]) OFFICE/OUTPATIENT VISIT EST Diagnosis: FLU VACCINE[ICD10: Z23] Jayna MORILLOLINE Daniel JIANG [address] [address] CPT-4: 80949 05/01/2016 OFFICE/OUTPATIENT VISIT EST Diagnosis: Hypothyroidism, unspecified[ICD10: E03.9] Diagnosis: Type 1 diabetes mellitus without complications[ICD10: E10.9] Diagnosis: Mixed hyperlipidemia[ICD10: E78.2] Diagnosis: Essential (primary) hypertension[ICD10: I10] Diagnosis: Mixed incontinence[ICD10: N39.46] Jayna Jessicamarialuisa Thomas TracyPaige ANDIE SAEZ [address] [address] CPT-4: 25186 11/08/2015 ([id number]) OFFICE/OUTPATIENT VISIT EST Diagnosis: Hypothyroidism, unspecified[ICD10: E03.9] Diagnosis: Other fatigue[ICD10: R53.83] Jayna GUTIERREZ Daniel VANESSA [address] [address] CPT-4: 46877 07/19/2015 ([id number]) OFFICE/OUTPATIENT VISIT EST Diagnosis: Hypothyroidism, unspecified[ICD10: E03.9] Diagnosis: Mixed hyperlipidemia[ICD10: E78.2] Diagnosis: Metabolic syndrome[ICD10: E88.81] Diagnosis: Right lower quadrant abdominal tenderness[ICD10: R10.813] Diagnosis: FLU VACCINE[ICD10: Z23] Jayna BRUCE [address] [address] CPT-4: 27825 03/28/2015 ([id number]) OFFICE/OUTPATIENT VISIT EST Diagnosis: MALAISE AND FATIGUE[ICD9: 780.79] Diagnosis: DEPRESSIVE DISORDER NEC[ICD9: 311] Diagnosis: HYPOTHYROIDISM[ICD9: 244.9] Diagnosis: PNEUMOCOCCAL VACCINE[ICD10: Z23] Jayna [address] [address] CPT-4: 73109 02/08/2015 ([id number]) OFFICE/OUTPATIENT VISIT EST Diagnosis: MALAISE AND FATIGUE[ICD9: 780.79] Diagnosis: DEPRESSIVE DISORDER NEC[ICD9: 311] Diagnosis: HYPOTHYROIDISM[ICD9: 244.9] Diagnosis: ARTHRALGIA-MULTIPLE SITES[ICD9: 719.49] Jayna [address] [address] CPT-4: 70491 01/11/2015 ([id number]) OFFICE/OUTPATIENT VISIT EST 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] Diagnosis: - I - HYPOTHYROIDISM[ICD9: 244.9] Diagnosis: COUGH[ICD10: R05] Diagnosis: ALLERGIC RHINITIS[ICD9: 477.9] Diagnosis: Lumbar degenerative disc disease[ICD9: 722.52] Jayna VANESSA [address] [address] CPT- 4: 34238 11/24/2014 ([id number]) OFFICE/OUTPATIENT VISIT EST Diagnosis: Allergic reaction[ICD9: 995.3] Galina Dafne JAYNA VANESSA DO [facility] [address] [place] [address] CPT-4: 53395 11/19/2014 ([id number]) OFFICE/OUTPATIENT VISIT EST Diagnosis: ALLERGIC RHINITIS[ICD9: 477.9] Diagnosis: WHEEZING[ICD9: 786.07] Diagnosis: URINARY TRACT INFECTION[ICD9: 599.0] Diagnosis: Right flank pain[ICD9: 789.09] Conchita BRUCEER DO [facility] [address] [place] [address] CPT-4: 94729 10/27/2014 ([id number]) OFFICE/OUTPATIENT VISIT EST Diagnosis: URINARY TRACT INFECTION[ICD9: 599.0] Diagnosis: Flank pain[ICD9: 789.09] Conchita CARTER DO [address] [address] CPT-4: 11288 09/23/2014 ([id number]) OFFICE/OUTPATIENT VISIT EST Diagnosis: HYPERTENSION[ICD9: 401.9] Diagnosis: - I - HYPOTHYROIDISM[ICD9: 244.9] Diagnosis: HYPERLIPIDEMIA NEC/NOS[ICD9: 272.4] Diagnosis: DYSMETABOLIC SYNDROME X[ICD9: 277.7] Jayna VANESSA DO [address] [address] CPT-4: 98873 07/28/2014 OFFICE/OUTPATIENT VISIT EST Diagnosis: HYPERTENSION[ICD9: 401.9] Diagnosis: GROSS HEMATURIA[ICD9: 599.71] Jayna VANESSA DO [facility] [address] [place] [address] CPT-4: 07890 03/30/2014 ([id number]) OFFICE/OUTPATIENT VISIT EST 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 ORE NDER DO [address] [address] CPT-4: 06032 11/24/2013 ([id number]) OFFICE/OUTPATIENT VISIT EST 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 O RENDER DO [address] [address] CPT-4: 14200 08/25/2013 OFFICE/OUTPATIENT VISIT EST Diagnosis: DEPRESSIVE DISORDER NEC[ICD9: 311] Jayna ALVARENGA S. ORENDER DO [address] [address] CPT-4: 32336 06/29/2013 OFFICE/OUTPATIENT VISIT EST Diagnosis: DEPRESSIVE DISORDER NEC[ICD9: 311] Jayna ALVARENGA S. ORENDER DO [address] [address] CPT-4: 27266 05/26/2013 ([id number]) OFFICE/OUTPATIENT VISIT EST Diagnosis: BRONCHITIS, ACUTE[ICD9: 466.0] Diagnosis: HYPOTHYROIDISM[ICD9: 244.9] Diagnosis: HYPERLIPIDEMIA NEC/NOS[ICD9: 272.4] Diagnosis: Shoulder pain[ICD9: 719.41] Jayna Jessicamarialuisa GUTIERREZ S. O RENDER DO [address] [address] CPT-4: 58276 05/06/2013 ([id number]) OFFICE/OUTPATIENT VISIT EST Diagnosis: BRONCHITIS, ACUTE[ICD9: 466.0] Diagnosis: SINUSITIS, ACUTE[ICD9: 461.9] Jayna GUTIERREZ S. ORENDER DO [address] [address] CPT-4: 91440 04/23/2013 ([id number]) OFFICE/OUTPATIENT VISIT EST Diagnosis: DYSPNEA[ICD9: 786.09] Diagnosis: EDEMA[ICD9: 782.3] Diagnosis: EFHGM-2-QJNUKHQFQSH DEFICIENCY[ICD9: 273.4] Diagnosis: COUGH[ICD9: 786.2] Jayna VANESSA DO [address] [address] CPT-4: 10812 03/31/20 13 OFFICE/OUTPATIENT VISIT EST Diagnosis: Chest pain[ICD9: 786.50] Diagnosis: ANXIETY STATE NOS[ICD9: 300.00] Conchita VANESSA DO [address] [address] CPT-4: 28330 03/05/2013 ([id number]) OFFICE/OUTPATIENT VISIT EST Diagnosis: HYPERLIPIDEMIA NEC/NOS[ICD9: 272.4] Diagnosis: HYPOTHYROIDISM[ICD9: 244.9] Diagnosis: Qosrm-0-djbbifsnkux deficiency[ICD9: 273.4] Diagnosis: ALLERGIC RHINITIS[ICD9: 477.9] Jayna VANESSA DO [address] [address] CPT-4: 19367 02/04/2013 ([id number]) OFFICE/OUTPATIENT VISIT EST Diagnosis: COUGH[ICD9: 786.2] Diagnosis: ALLERGIC RHINITIS[ICD9: 477.9] Jayna VANESSA DO [address] [address] CPT-4: 45493 11/27/2012 ([id number]) OFFICE/OUTPATIENT VISIT EST Diagnosis: COUGH[ICD9: 786.2] Diagnosis: DYSPNEA[ICD9: 786.09] Jayna VANESSA DO [address] [address] CPT-4: 98078 11/11/2012 ([id number]) OFFICE/OUTPATIENT VISIT EST Diagnosis: ABDOMINAL PAIN[ICD9: 789.00] Diagnosis: DIARRHEA[ICD9: 787.91] Diagnosis: COUGH[ICD9: 786.2] Jayna VANESSA DO [address] [address] CPT-4: 05478 10/21/19 13 OFFICE/OUTPATIENT VISIT EST Diagnosis: COUGH[ICD9: 786.2] Diagnosis: SINUSITIS, ACUTE[ICD9: 461.9] Diagnosis: PHARYNGITIS, ACUTE[ICD9: 462] Jayna MORILLOLINE TracyPaige ANDIE [address] [address] CPT-4: 91386 09/03/2012 OFFICE/OUTPATIENT VISIT EST Diagnosis: ABDOMINAL PAIN[ICD9: 789.00] Diagnosis: Diarrhea[ICD9: 787.91] Jayna Jessicamarialuisa GUTIERREZ TracyPaige BIANCA Villalba DO [address] [address] CPT-4: 00369 07/23/2012 ([id number]) OFFICE/OUTPATIENT VISIT EST Diagnosis: DM 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 TYPE II, UNCONTROLLED[ICD9: 250.02] Diagnosis: HYPERLIPIDEMIA NEC/NOS[ICD9: 272.4] Diagnosis: GERD[ICD9: 530.81] Jayna Jessicamarialuisa GUTIERREZ TracyPaige ANDIE [address] [address] CPT-4: 50599 05/20/20 OFFICE/OUTPATIENT VISIT EST Diagnosis: DERMATITIS NOS[ICD9: 692.9] Galina GUTIERREZ TracyPaige PUCKETT [address] [address] CPT-4: 64025 04/04/2012 ([id number]) OFFICE/OUTPATIENT VISIT EST Diagnosis: HYPERLIPIDEMIA NEC/NOS[ICD9: 272.4] Diagnosis: HYPOTHYROIDISM[ICD9: 244.9] Diagnosis: DYSMETABOLIC SYNDROME X[ICD9: 277.7] Jayna Jessicamarialuisa QUEZADA TracyPaige ANDIE [address] [address] CPT-4: 61710 01/02/2012 OFFICE/OUTPATIENT VISIT EST Diagnosis: COUGH[ICD9: 786.2] Diagnosis: SINUSITIS, ACUTE[ICD9: 461.9] Lizzie GUTIERREZ TracyPaige ANDIE [address] [address] CPT-4: 74438 09/04/2011 OFFICE/OUTPATIENT VISIT EST Diagnosis: Diverticulitis[ICD9: 562.11] Diagnosis: THROMBOPHLEBITIS[ICD9: 451.9] Jayna VANESSA DO [address] [address] CPT-4: 46376 08/14/2011 OFFICE/OUTPATIENT VISIT EST Diagnosis: COUGH[ICD9: 786.2] Jayna VANESSA DO [address] [address] CPT-4: 10699 07/25/19 12 OFFICE/OUTPATIENT VISIT EST Diagnosis: HYPOTHYROIDISM[ICD9: 244.9] Diagnosis: HYPERLIPIDEMIA NEC/NOS[ICD9: 272.4] Diagnosis: Total knee replacement status[ICD9: V43.65] Jayna VANESSA DO [address] [address] CPT- 4: 29443 07/12/2011 OFFICE/OUTPATIENT VISIT EST Diagnosis: BRONCHITIS, ACUTE[ICD9: 466.0] Diagnosis: COUGH[ICD9: 786.2] Jayna VANESSA DO [address] [address] CPT-4: 56420 05/09/20 11 OFFICE/OUTPATIENT VISIT EST Diagnosis: BRONCHITIS, ACUTE[ICD9: 466.0] Diagnosis: ASTHMA NOS[ICD9: 493.90] Diagnosis: Pleurisy[ICD9: 511.0] Jayna VANESSA DO [address] [address] CPT-4: 48978 05/02/2011 OFFICE/OUTPATIENT VISIT EST Diagnosis: COUGH[ICD9: 786.2] Jayna VANESSA DO [address] [address] CPT-4: 64684 04/25/20 11 OFFICE/OUTPATIENT VISIT EST Diagnosis: COUGH[ICD9: 786.2] Diagnosis: SINUSITIS, ACUTE[ICD9: 461.9] Jayna VANESSA [address] [place] [address] CPT-4: 76356 04/04/2011 OFFICE/OUTPATIENT VISIT EST Diagnosis: HYPOTHYROIDISM[ICD9: 244.9] Diagnosis: Knee osteoarthritis[ICD9: 715.96] Jaynaparam Vanessa [facility] [address] [place] [phone] CPT-4: 69381 03/01/2011 OFFICE/OUTPATIENT VISIT EST Jayna Jessicaleydapaolinar [facility] [address] [place] [phone] CPT-4: 65749 01/04/2011 ([id number]) OFFICE/OUTPATIENT VISIT EST Jayna Jessicaleydaapolinar [facility] [address] [place] [phone] CPT-4: 90647 12/07/2010 ([id number]) OFFICE/OUTPATIENT VISIT EST Jayna Jessicamarialuisa [facility] [address] [place] [phone] CPT-4: 19187 10/09/2010 ([id number]) OFFICE/OUTPATIENT VISIT EST Jayna Andie [facility] [address] [place] [phone] CPT-4: 89819 08/07/2010 ([id number]) OFFICE/OUTPATIENT VISIT, EST Jayna Jessicamarialuisa [facility] [address] [place] [phone] CPT-4: 79691 06/06/2010 ([id number]) OFFICE/OUTPATIENT VISIT, EST Jayna Jessicamarialuisa [facility] [address] [place] [phone] CPT-4: 83450 03/20/2010 ([id number]) OFFICE/OUTPATIENT VISIT, EST Jayna [facility] [address] [place] [phone] CPT-4: 10024 01/30/2010 ([id number]) OFFICE/OUTPATIENT VISIT, EULOGIO VANESSA DO [facility] [address] [place] [address] CPT-4: 55061 01/09/2010 ([id number]) OFFICE/OUTPATIENT VISIT, EULOGIO VANESSA DO [facility] [address] [place] [address] CPT-4: 61078 10/26/2009 ([id number]) OFFICE/OUTPATIENT VISIT, EULOGIO VANESSA DO [facility] [address] [place] [phone] CPT-4: 43334 10/18/19 10 ([id number]) OFFICE/OUTPATIENT VISIT, EULOGIO VANESSA DO [facility] [address] [place] [address] CPT-4: 89435 10/04/2009 ([id number]) OFFICE/OUTPATIENT VISIT, EULOGIO VANESSA DO [facility] [address] [place] [phone] CPT-4: 04690 09/21/2009 Plan of Care Planned Activity Notes Codes Status Date Visit Diagnosis Plan: Acute cystitis Discussion: NOT r esponding to Macrobid-- resistant to multiple oral antibiotics. Consulted with Dr. Vanessa and agreeable with direct admit for IVF and antibiotics. Patient will be admitted to [address] [place] [address]-- #415. ICD-9 : 595.0 ICD-10 : N30.00 [...] 09/05/2022 Appointment: Marlene Staples WPtel: [phone] [phone] ACUTE ILLNESS 09/05/2022 Patient Education: Patient Medication [...] M51.37 08/30/2022 Appointment: Marlene Staples WPtel: [phone] [phone] FOLLOW UP 08/30/2022 Patient Education: [...] F43.9 08/07/2022 Appointment: Jayna Vanessa WPtel: [phone] [phone] FOLLOW UP 08/07/2022 Visit Diagnosis Plan: [...] N30.00 06/29/2022 Appointment: Marlene Staples WPtel: [phone] [phone] ACUTE ILLNESS 06/29/2022 Patient Education: ciprofloxacin HCl- OptimizeRX Coupon [id number] Completed 06/29/2022 Visit Diagnosis Plan: Depression Discussion: Increase Wellbutrin XL to 300mg po qAM Fwup 2 mos ICD-9 : 311 ICD-10 : F32.A 05/28/2022 Visit Diagnosis Plan: Hypothyroidism Discussion: Labs discussed Decrease levothyroxine to 150mcg 6 days a week and repeat thyroid lab in 2mos ICD-9 : 244.9 ICD-10 : E03.9 05/28/2022 Appointment: Jayna Vanessa WPtel: [phone] [phone] US FOLLOW UP 05/28/2022 Visit Diagnosis [...] R73.9 05/10/2022 Appointment: Jayna Vanessa WPtel: [phone] [phone] US FOLLOW UP 05/10/2022 Visit Diagnosis Plan: Migraine, intractable Discussion : Toradol 30mg IM x1 given in clinic. Start Rizatriptan-- discussed on how to use and may repeat x1 dose 2 hours later. Restart propranolol for migraine prevention. Notify clinic if migraine not improving. ICD-9 : 346.91 ICD-10 : G43.919 04/18/2022 Appointment: Marlene Staples WPtel[facility] [address] [facility] [facility] 04/18/2022 Patient Education: propranolol- OptimizeRX Coupon [id number] Completed 04/18/2022 Appointment: Jayna Vanessa: [facility] [facility] [place] INJECTION 04/05/2022 Appointment: Jayna Vanessa WPtel: [phone] [phone] US CANCELED 03/21/2022 Visit Diagnosis Plan: Acute [...] WPtel: [phone] [phone] [place] ACUTE ILLNESS 02/15/2022 Patient Education: prednisone- OptimizeRX Coupon [id number] https://www.HomeStay/samplemd/resources/getResource/61/[email or web address]-z148-5u99-df Completed 02/15/2022 Visit Diagnosis Plan: Hypothyroidism, unspecified Disc ussion: Stable ICD-9 : 244.9 ICD-10 : E03.9 02/06/2022 Visit Diagnosis Plan: [facility] without abnormal findings [...] J44.9 02/06/2022 Appointment: Jayna Vanessa WPtel: [phone] [phone] Annual Well Visit 02/06/2022 Care Plan: Annual depression screening, 15 minutes 02/06/2022 Visit Diagnosis Plan: 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 Patient declines- will get stat CT of the head, cbc, cmp, and ESR and fwup with results [facility] sample given ICD-9 : 346.03 ICD-10 : G43.111 02/01/2022 Appointment: Latasha Anand WPtel: [phone] [phone] ACUTE ILLNESS 02/01/2022 Patient Education: Patient Medication [...] R19.7 11/29/2021 Appointment: Jayna Vanessa WPtel: [phone] [phone] US FOLLOW UP 11/29/2021 Visit Diagnosis Plan: Diarrhea Discussion: C Diff nega tive Treat with diflucan and Restora-RX Fwup 1 week ICD-9 : 787.91 ICD-10 : R19.7 11/22/2021 Visit Diagnosis Plan: Post-viral cough syndrome Discus joaquín: Change albuterol to Breztri 2p BID Add singulair 10mg po q HS ICD-9 : 786.2 ICD-10 : R05.8 11/22/2021 Appointment: Jayna Vanessa WPtel: [address] [place], [place] [phone] ACUTE ILLNESS 11/22/2021 Patient Education: Carl Coats [id number] https://www.HomeStay/samplemd/resources/getResource/61/[email or web address]-4210-0f Completed 11/22/2021 Visit Diagnosis Plan: Diarrhea of presumed infectious origin Discussion: Will check for c-diff due to recent antibiotics and foul smelling diarrhea ICD-9 : 009.3 ICD-10 : R19.7 11/21/2021 Visit Diagnosis Plan: History of recent pneumonia Disc ussion: Check cbc, cmp, ESR, and cxr now ICD-9 : V12.61 ICD-10 : Z87.01 11/21/2021 Appointment: Latasha Anand WPtel: [address] [place] [address] ACUTE ILLNESS 11/21/2021 Patient Education: Patient Medication Summary Completed 11/21/2021 Visit Diagnosis Plan: Pneumonia Discussion: Finish all abx and continue albuterol Fwup next week ICD-9 : 486 ICD-10 : J18.9 11/09/2021 Visit Diagnosis Plan: Serous otitis media Discussion: Kenalog 40mg with Dexamethasone 2mg IM now ICD-9 : 381.4 ICD-10 : H65.90 11/09/2021 Appointment: Jayna Vanessa WPtel: [address] [place], [place] [phone] [facility] Follow Up 11/09/2021 Visit Diagnosis Plan: Pneumonia Discussion: Admit to h ospital ICD-9 : 486 ICD-10 : J18.9 10/31/2021 Appointment: Jayna Vanessa WPtel: [address] [place], [place] [phone] FOLLOW UP 10/31/2021 Visit Diagnosis Plan: Nausea [...] prn 10/30/2021 Appointment: Jayna Vanessa WPtel: [phone] [phone] US ACUTE ILLNESS 10/30/2021 Visit Diagnosis Plan: Cervicalgia Discussion: Had x-ra ys done Kenalog 40mg IM now Baclofen prn Mobic for 1 week Topical muscle rube Moist heat and stretches shown Has PT sessions scheduled next week so will add in therapy for neck ICD-9 : 723.1 ICD-10 : M54.2 09/05/2021 Appointment: Jayna Vanessa WPtel: [phone] [phone] ACUTE ILLNESS 09/05/2021 Visit Diagnosis Plan: [...] 08/24/2021 Appointment: Latasha Anand [facility]Ptel[facility] [phone] [facility] [facility] 08/24/2021 Patient Education: Patient Medication Summary Completed 08/24/2021 Patient Education: prednisone- OptimizeRX Coupon [id number] Completed 08/24/2021 Visit Plan: Supportive care. Rest, [...] 07/04/2021 Appointment: Latasha Anand WPtel: [phone] [phone] US ACUTE ILLNESS 07/04/2021 Patient Education: Patient Medication Summary Completed 07/04/2021 Patient Education: Patient Medication Summary Completed 07/04/2021 Appointment: Latasha Anand WPtel: [phone] [phone] US NO SHOW 07/03/2021 Appointment: Latasha Anand WPtel: [phone] [phone] US patients issue resolved so moved to dr's schedule for his hospital [facility] (km) CANCELED 03/29/2021 Appointment: Jayna Vanessa WPtel: [phone] [phone] US INJECTION 03/29/2021 Visit Diagnosis Plan: [...] 02/08/2021 Appointment: Kika Latasha WPtel: [phone] [phone] ACUTE ILLNESS 02/08/2021 Patient Education: Patient Medication Summary Completed 02/08/2021 Visit Diagnosis Plan: Contact dermatitis Discussion: T opical TAC and prednisone Notify if persists or worsens ICD-9 : 692.9 ICD-10 : L25.9 01/19/2021 Appointment: Jayna Vanessa WPtel: [phone] [phone] ACUTE ILLNESS 01/19/2021 Patient Education: prednisone- OptimizeRX Coupon [id number] Completed 01/19/2021 Patient Education: triamcinolone acetonide- OptimizeRX Coupon [phone] [id number] Completed 01/19/2021 Visit Diagnosis Plan: Hypothyroidism, unspecified Disc ussion: Increase levothyroxine to 150mcg po daily and recheck TSH and free T4 in 2mos ICD-9 : 244.9 ICD-10 : E03.9 01/03/2021 Visit Diagnosis Plan: Essential (primary) hypertension Discussion: Stable ICD-9 : 401.9 ICD-10 : I10 01/03/2021 Visit Diagnosis Plan: [facility] without abnormal findings Discussion: Mediterranean diet Combinati on of cardio and weight bearing exercise Had Covid vaccines Lab discussed ICD-9 : V70.9 ICD-10 : Z00.00 01/03/2021 Visit Diagnosis Plan: Chronic obstructive pulmonary di sease, unspecified Discussion: Following with pulmonology ICD-9 : 496 ICD-10 : J44.9 01/03/2021 Appointment: Jayna Vanessa WPtel: [phone] [phone] Annual Well Visit 01/03/2021 Patient Education: levothyroxine- OptimizeRX Coupon [id number] https://www.HomeStay/samplemd/resources/getResource/61/8v579ko7-8jk7-0753-h1 Completed 01/03/2021 Visit Diagnosis Plan: COPD exacerbation Discussion: Sa mple of breztri given. Prednisone 40 mg x 5 days for exacerbation- increased cough, shortness of breath, and phlegm. Promethazine DM cough syrup sent d/t frequent hacking cough that interrupts sleep. F/U for no improvement or any concerns. ICD-9 : 491.21 ICD-10 : J44.1 11/29/2020 Appointment: Latasha Anand WPtel: [phone] [phone] ACUTE ILLNESS 11/29/2020 Patient Education: Patient Medication Summary Completed 11/29/2020 Patient Education: prednisone- OptimizeRX Coupon [id number] Completed 11/29/2020 Patient Education: promethazine-DM- OptimizeRX Coupon [id number] Completed 11/29/2020 Visit Diagnosis Plan: Sinusitis Discussion: Will start doxycycline (pcn allergy). Sinus rinses. Tylenol/nsaids for headache/pain. Return to clinicif not improving/concerns. ICD-9 : 473.9 ICD-10 : J32.9 09/29/2020 Appointment: Latasha Anand WPtel: [phone] [phone] ACUTE ILLNESS 09/29/2020 Patient Education: Patient Medication Summary Completed 09/29/2020 Patient Education: doxycycline hyclate- OptimizeRX Coupon [id number] Completed 09/29/2020 Visit Diagnosis Plan: Other [...] 09/19/2020 Appointment: Latasha Anand WPtel: [phone] [phone] ACUTE ILLNESS 09/19/2020 Patient Education: Patient Medication Summary Completed 09/19/2020 Patient Education: ProAir HFA- OptimizeRX Coupon [id number] Completed 09/19/2020 Visit Diagnosis Plan: Right-sided tinnitus [...] : H93.11 08/10/2020 Appointment: Jayna Vanessa WPtel: [address] [place], [place] [phone] FOLLOW UP 08/10/2020 Patient Education: neomycin-polymyxin B-dexameth- Opti mizeRX Coupon [id number] https://www.HomeStay/Department of Health and Human Services/resources/getResource/61/aa495a84-j39k-5g84-wp Completed 08/10/2020 Visit Diagnosis Plan: Dysfunction of right eustachian tube Discussion: Naylay.nh video visit done Increase zyrtec to BID Increase flonase to BID Add prednisone To office at end of week to assess otoscope exam if persists ICD-9 : 381.81 ICD-10 : H69.81 08/01/2020 Appointment: Jayna Vanessa WPtel: [address] [place], [place] [phone] TELEMEDICINE 08/01/2020 Patient Education: prednisone- OptimizeRX Coupon [phone] https://www.HomeStay/Department of Health and Human Services/resources/getResource/61/da8h36a6-6810-4n0k-11 Completed 08/01/2020 Visit Diagnosis Plan: Pyelonephritis Discussion: Finis maría all abx Push fluids Check lab and repeat UA in 5 days--CBC, CMP, ESR ICD-9 : 590.80 ICD-10 : N12 07/13/2020 Appointment: Jayna Vanessa WPtel: [phone] [phone] Hospital Follow Up 07/13/2020 Visit Diagnosis Plan: Acute gastroenteritis Discussion : Telephone visit completed Clear liquid diet next 24-48hrs Flagyl to cover for colitis/diverticulitis Zofran prn Notify or to ER if worsening ICD-9 : 558.9 ICD-10 : K52.9 07/05/2020 Appointment: Jayna Vanessa WPtel: [phone] [phone] TELEMEDICINE 07/05/2020 Patient Education: ondansetron HCl- OptimizeRX Coupon [id number] https://www.HomeStay/Department of Health and Human Services/resources/getResource/61/v5u27rj2-5b1h-855d-8e Completed 07/05/2020 Visit Diagnosis Plan: Metabolic syndrome Discussion: U pdate CMP, HBa1c ICD-9 : 277.7 ICD-10 : E88.81 06/22/2020 Visit Diagnosis Plan: Jhsva-4-bjjphhwmkyc deficiency D iscussion: Following with pulmonology ICD-9 [...] : I10 06/22/2020 Appointment: Jayna Vanessa WPtel: [address] [place], [place] [phone] FOLLOW UP 06/22/2020 Visit Diagnosis Plan: Urinary tract infection Discussi on: Macrobid Diflucan Push water Notify if worsens ICD-9 : 599.0 ICD-10 : N39.0 05/17/2020 Appointment: Jayna Vanessa WPtel: [phone] ACUTE ILLNESS 05/17/2020 Patient Education: fluconazole- OptimizeRX Coupon [id number] https://www.Department of Health and Human Services.LANDBAY/samplemd/resources/getResource/61/2y1aw8be-o1m2-4y5v-8k Completed 05/17/2020 Visit Diagnosis Plan: Right pulmonary embolus Discussi on: Continue eliquis at 5mg po BID Has appointments pending with pulmonology and hematology Fwup after visits with both of these specialists ICD-9 : 415.19 ICD-10 : I26.99 03/14/2020 Appointment: Jayna Vanessa WPtel: [address] [place], [place] [phone] [facility] 03/14/20 on cell -- home phone had busy signal Hospital Follow Up 03/14/2020 Appointment: Jayna Vanessa WPtel: [address] [place], [place] [phone] I schedule patient by mistake ddo Scheduled [...] : R06.00 03/07/2020 Appointment: Jayna Vanessa WPtel: [address] [place], [place] [phone] ACUTE ILLNESS 03/07/2020 Care Plan: CT THORAX W/DYE LOINC : 04138 -6 Pending 03/07/2020 Appointment: Jayna Vanessa WPtel: [address] [place], [place] [phone] NO SHOW - FORGIVEN 03/02/2020 Visit Diagnosis Plan: Upper respiratory infection Disc ussion: patient's covid test was neg from several weeks ago. proair refilled to take as needed. medrol pack prescribed to cover for allergies since her symptoms began after being in [facility]. however, instructed patient that she needs to be checked again for coronavirus due to severity of her symptoms. [place] so [facility]. call ofice with new or worsening symptoms, otherwise push fluids. ICD-9 : 465.9 ICD-10 : J06.9 02/11/2020 Appointment: Genesis Fernández [address] [facility] [facility] 02/11/2020 Patient Education: ProAir HFA- OptimizeRX Coupon [id number] Completed 02/11/2020 Patient Education: Medrol (Isaiah)- OptimizeRX Coupon [id number] Completed 02/11/2020 Visit Diagnosis Plan: Hypothyroidism, unspecified [...] I10 12/21/2019 Visit Diagnosis Plan: [facility] without abnormal findings Discussion: Mediterranean diet Combinati on of cardio and weight bearing exercise Lab discussed Last colonoscopy 3 years ago ICD-9 : V70.9 ICD-10 : Z00.00 12/21/2019 Appointment: Jayna Vanessa WPtel: [phone] [facility] [place] Annual Well Visit 12/21/2019 Care Plan: Referral Order SNOMED-CT : [id number] Pending 12/21/2019 Visit Diagnosis Plan: Dermatitis Discussion: Doxy.me v ideo visit done Cover with Prednisone taper Use Zyrtec 10mg po q AM BID ICD-9 : 692.9 ICD-10 : L30.9 09/29/2019 Appointment: Jayna Vanessa WPtel: [address] [place], [place] [phone] US TELEMEDICINE 09/29/2019 Patient Education: prednisone- OptimizeRX Coupon [id number] https://www.HomeStay/Department of Health and Human Services/resources/getResource/61/78o14s30-3x20-3j34-5r Completed 09/29/2019 Visit Diagnosis Plan: Bone spur [...] : N39.0 09/14/2019 Appointment: Jayna Vanessa WPtel: [address] [place], [place] [phone] US TELEMEDICINE 09/14/2019 Appointment: Jayna Vanessa WPtel: [address] [place], [place] [phone] US LAB 09/11/2019 Appointment: Jayna Vanessa WPtel: [address] [place], [place] [phone] US 09/09/2019 1210--per Ally patient was to only have 1 injection, reculture urine on 09/11/19 (km) CANCELED 09/09/2019 Appointment: Jayna Vanessa WPtel: [address] [place], [place] [phone] US INJECTION 09/08/2019 Appointment: Jayna Vanessa WPtel: [address] [place], [place] [phone] US INJECTION 09/07/2019 Visit Diagnosis Plan: Urinary [...] ICD-10 : R35.0 09/02/2019 Appointment: Genesis Fernández [address] [place] [address] ACUTE ILLNESS 09/02/2019 Visit Diagnosis Plan: Sinusitis Discussion: instructed to start flonase daily and zyrtec daily. if no improvement next week, call clinic and may need further directions. instructed to use saline eye drops as needed to eyes to assist with dryness. ICD-9 : 473.9 ICD-10 : J32.9 07/09/2019 Appointment: Genesis Fernández [address] [place] [address] ACUTE ILLNESS 07/09/2019 Visit Diagnosis Plan: UTI (urinary tract infection) Di scussion: urine culture sent off. will start on macrobid due to symptoms. instructed to push fluids and chemo tomorrow with worsening symptoms. ICD-9 : 599.0 ICD-10 : N39.0 04/15/2019 Appointment: Jayna Vanessa WPtel: [phone] [facility] [place] INJECTION 04/15/2019 Appointment: Genesis Fernández [address] [place], [place] [phone] ACUTE ILLNESS 04/15/2019 Visit Diagnosis Plan: Pain in right leg Discussion: ke nalog/dexa given in office. continue with flexeril prn. PT was ordered for patient due to chronic issues. call office with worsening symptoms and may need imaging. ICD-9 : 729.5 ICD-10 : M79.604 04/07/2019 Appointment: Genesis Fernández [address] [place], [place] [phone] ACUTE ILLNESS 04/07/2019 Visit Diagnosis Plan: Diverticulitis of large intestine without perforation or abscess without bleeding Discussion: Patient will call when she g ets home and verify which antibiotics she has left--needs at least another week on flagyl and thinks she only took 1 week on that ICD-9 : 562.11 ICD-10 : K57.32 03/25/2019 Appointment: Jayna Vanessa WPtel: [address] [place] [phone] FOLLOW UP 03/25/2019 Visit Diagnosis Plan: Cystitis Discussion: Bactrim and culture urine ICD-9 : 595.9 ICD-10 : N30.90 03/18/2019 Visit Diagnosis Plan: Abdominal pain Discussion: Cover with flagyl for colitis Sweet Grass diet To ER this weekend if worsening Fwup 1 week ICD-9 : 789.00 ICD-10 : R10.9 03/18/2019 Appointment: Jayna Vanessa WPtel: [address] [place] [phone] ACUTE ILLNESS 03/18/2019 Visit Diagnosis Plan: Urinary [...] ICD-10 : R10.84 01/26/2019 Appointment: Genesis Fernández [address] [place], [place] [phone] ACUTE ILLNESS 01/26/2019 Appointment: Jayna Vanessa WPtel: [address] [place] [phone] US CANCELED 01/12/2019 Visit Diagnosis Plan: Mild intermittent asthma with (a cute) exacerbation Discussion: Kenalog 40mg IM now Prednisone stating tomorrow Start Doxycycline tonight Continue SVNs with duoneb q4hrs To ER this weekend if worsening Call Saturday on how doing ICD-9 : 466.0 ICD-10 : J45.21 01/08/2019 Appointment: Jayna Vanessa WPtel: [address] [phone] FOLLOW UP 01/08/2019 Patient Education: prednisone- OptimizeRX Coupon [id number] https://www.HomeStay/Department of Health and Human Services/resources/getResource/61/67145538-c0iz-8478-19 Completed 01/08/2019 Visit Diagnosis Plan: Mild intermittent asthma with (a cute) exacerbation Discussion: Solumedrol 125mg IM SVN with duoneb given Continue albuterol q4hrs CXR now Recheck tomorrow ICD-9 : 466.0 ICD-10 : J45.21 01/06/2019 Appointment: Jayna Vanessa WPtel: [address] [phone] ACUTE ILLNESS 01/06/2019 Visit Diagnosis Plan: Encounter for screening for roel gnant neoplasm of colon Discussion: positive for ob. will order ct abd/pelvis due to other findings and discussed with patient that may need to proceed with updated colonoscopy. patient verbalized understanding. ICD-9 : V76.51 ICD-10 : Z12.11 12/11/2018 Visit Diagnosis Plan: Encounter for [facility] adult medical examination with abnormal findings [...] : N76.0 12/11/2018 Appointment: Genesis Fern[facility]dez [facility] [facility] Well Visit 12/11/2018 Care Plan: RML ASSAY THYROID STIM HORMONE Pending 12/04/2018 Care Plan: RML ASSAY OF FREE THYROXINE Pe nding 12/04/2018 Care Plan: RML A1C HPLC LOINC : 85992-7 Pending 12/04/2018 Care Plan: RML LIPID PANEL LOINC : 97842 -1 Pending 12/04/2018 Care Plan: RML COMPREHEN METABOLIC PANEL LOINC : 33853-0 Pending 12/04/2018 Care Plan: QUEST CBC (INCLUDES DIFF/PLT) LOINC : 41513-7 Pending 12/04/2018 Visit Diagnosis Plan: Benign paroxysmal vertigo, bilat eral Discussion: Meclizine Vestibular Exercises To ER if worsens or develops neurological symptoms or will need CT scan if persists/worsens ICD-9 : 386.11 ICD-10 : H81.13 10/30/2018 Appointment: Jayna Vanessa WPtel: [address] [place], [place] [phone] ACUTE ILLNESS 10/30/2018 Patient Education: VESTIBULAR EXCERCISES Completed 10/30/2018 Patient Education: meclizine- OptimizeRX Coupon [id number] Completed 10/30/2018 Appointment: Jayna Vanessa WPtel: [phone] US canceled due to huband going [...] Stacey Feng [facility] [address] ACUTE ILLNESS 10/07/2018 Patient Education: doxycycline hyclate- OptimizeRX Hansa jerald [id number] https://www.HomeStay/samplemd/resources/getResource/61/k058xdh4-h161-870u-79 Completed 10/07/2018 Care Plan: RML ASSAY OF [...] : M85.80 06/23/2018 Appointment: Jayna Vanessa WPtel: [address] [place], [place] [phone] FOLLOW UP 06/23/2018 Appointment: Jayna Vanessa WPtel: [address] [place], [place] [phone] ER Follow UP 01/27/2018 Visit Diagnosis Plan: Hypothyroidism, unspecified Disc ussion: Lab discussed Increase Levothyroxine to 175mcg daily then recheck level in 6 weeks Follow Up: 6 weeks ICD-9 : 244.9 ICD-10 : E03.9 01/16/2018 Visit Diagnosis Plan: Mixed hyperlipidemia Discussion: Defers statin meds ICD-9 : 272.4 ICD-10 : E78.2 01/16/2018 Appointment: Jayna Vanessa WPtel: [address] [place] [address] FOLLOW UP 01/16/2018 Patient Education: Patient Medication Summary Completed 01/16/2018 Patient Education: Patient Medication Summary Completed 01/15/2018 Care Plan: RML COMPREHEN METABOLIC PANEL LOINC : 34586-5 Pending 01/15/2018 Care Plan: RML ASSAY THYROID STIM HORMONE Pending 01/15/2018 Care Plan: RML ASSAY OF FREE THYROXINE Pe nding 01/15/2018 Care Plan: RML LIPID PANEL LOINC : 06810 -1 Pending 01/15/2018 Care Plan: CBC Pending 01/15/2018 Care Plan: RML A1C HPLC LOINC : 03387-4 Pending 01/15/2018 Appointment: Jayna Vanessa WPtel: [address] [place], [place] [phone] US CANCELED 12/26/2017 Appointment: Jayna Vanessa WPtel: [address] [place] [address] US CANCELED 10/28/2017 Visit Diagnosis Plan: Cervicalgia Discussion: xray ord ered of cervical spine and right shoulder. 40 mg kenalog/15 mg toradol prescribed to assist with pain. medrol dose pack prescribed to start tomorrow. instructed patient that if she d evelops worsening pain or no improvement, call or rtc. ICD-9 : 723.1 ICD-10 : M54.2 10/16/2017 Appointment: Genesis Fernández [address] [place] [address] ACUTE ILLNESS 10/16/2017 Patient Education: Patient Medication Summary Completed 10/16/2017 Care Plan: X-RAY EXAM NECK SPINE 4/5VWS cervical LOINC : 66816-9 Pending 10/16/2017 Visit Diagnosis Plan: Headache Discussion: Stat CT of head Dilated eye exam ICD-9 : 784.0 ICD-10 : R51 09/12/2017 Visit Diagnosis Plan: Dizziness and giddiness Discussi on: Check CBC,TSH, Free T4 now ICD-9 : 780.4 ICD-10 : R42 09/12/2017 Appointment: Jayna Vanessa WPtel: [address] [place], [place] [phone] ACUTE ILLNESS 09/12/2017 Patient Education: Patient Medication Summary Completed 09/12/2017 Care Plan: CT HEAD/BRAIN W/O DYE LOINC : 81190-0 Pending 09/12/2017 Visit Diagnosis Plan: Cough Discussion: discussed cxra y and sputum results with patient and how they are negative for bacteria. patient restarted on her PPI to cover possiblity of GERD causing cough. 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 rtc with any new or worsening symptoms but continue with inhaler and nebulizer treatments as needed. ICD-9 : 786.2 ICD-10 : R05 08/20/2017 Appointment: Genesis Fernández [address] [place] [address] FOLLOW UP 08/20/2017 Patient Education: Patient Medication Summary Completed 08/20/2017 Visit Diagnosis Plan: COUGH Discussion: Check stat CXR Check Sputum culture ICD-9 : 786.2 ICD-10 : R05 08/13/2017 Appointment: Jayna Vanessa WPtel: [address] [place], [place] [phone] ACUTE ILLNESS 08/13/2017 Patient Education: Patient Medication [...] Rest, Fluids... 07/29/2017 Appointment: Jayna Vanessa WPtel: [facility] [place] [phone] ACUTE ILLNESS 07/29/2017 Patient Education: Patient Medication [...] : J09.X2 07/25/2017 Appointment: Genesis Fernández [address] ACUTE ILLNESS 07/25/2017 Patient Education: Patient [...] : M25.50 06/10/2017 Appointment: Jayna Vanessa WPtel: [address] [place], [place] [phone] ACUTE ILLNESS 06/10/2017 Patient Education: Patient Medication Summary Completed 06/10/2017 Appointment: Jayna Vanessa WPtel: [address] [place], [place] [phone] Does not need appointment CANCELED 2016 Appointment: Jayna Vanessa WPtel: [address] [place], [place] [phone] [place] CANCELED 05/30/2017 Visit Diagnosis Plan: Acute bronchitis, unspecified Di scussion: prednisone, zpack and tessalon perles prescribed to assist with symptoms. call or RTC if no improvement. humidifier at night. hydrate well and rest. discussed side effects from prednisone including increased blood sugars and instructed to monitor. ICD-9 : 490 ICD-10 : J20.9 05/28/2017 Appointment: Genesis Fernández 504 [facility] ACUTE ILLNESS 05/28/2017 Patient Education: Patient Medication Summary Completed 05/28/2017 Visit Diagnosis Plan: Type 2 diabetes mellitus without complications Discussion: Continue current meds accuchecks daily ICD-9 : 250.00 ICD-10 : E11.9 04/04/2017 Visit Diagnosis Plan: Encounter for [facility] examination without abnormal findings Discussion: Flu and Pneumovax given Mamm ogram ordered Lab discussed ICD-9 : V70.9 ICD-10 : Z00.00 04/04/2017 Appointment: Jayna Vanesas WPtel: [phone] [phone] Annual Well Visit 04/04/2017 Patient Education: Patient Medication Summary Completed 04/04/2017 Care Plan: MAMMOGRAM SCREENING LOINC : 2 6347-5 Pending 04/04/2017 Patient Education: Patient Medication Summary Completed 03/21/2017 Care Plan: RML COMPREHEN METABOLIC PANEL LOINC : 58813-3 Pending 03/21/2017 Care Plan: RML ASSAY THYROID STIM HORMONE Pending 03/21/2017 Care Plan: RML ASSAY OF FREE THYROXINE Pe nding 03/21/2017 Care Plan: CBC Pending 03/21/2017 Care Plan: RML A1C HPLC LOINC : 91274-8 Pending 03/21/2017 Visit Diagnosis Plan: Mixed hyperlipidemia Discussion: Continue current meds Follow Up: 6 months ICD-9 : 272.4 ICD-10 : E78.2 11/28/2016 Visit Diagnosis Plan: Hypothyroidism, unspecified Disc ussion: Continue current dose ICD-9 : 244.9 ICD-10 : E03.9 11/28/2016 Visit Diagnosis Plan: Zoqbu-2-zlbjleegcpx deficiency D iscussion: Continue weekly injections ICD-9 : 273.4 ICD-10 : E88.01 11/28/2016 Visit Diagnosis Plan: Sebaceous cyst Discussion: Emily daniel eanadine Discussed removal ICD-9 : 706.2 ICD-10 : L72.3 11/28/2016 Appointment: Jayna Vanessa WPtel: [phone] [phone] 6/6 rang and rang on home phone and mobile confirmed~sl FOLLOW UP 11/28/2016 Patient Education: Patient Medication Summary Completed 11/28/2016 Patient Education: Patient Medication Summary Completed 11/20/2016 Referral: Tom Mcrae WPtel: [address] 440 [id number] [place] Referral Initiated 07/05/2016 Visit Plan: Start with CT abdomen/pelvis Will need EGD and Colonoscopy so will refer to Dr. Deffenbaugh Obtain most recent lab results 06/05/2016 Appointment: Jayna Vanessa WPtel: [phone] [phone] ACUTE ILLNESS 06/05/2016 Patient Education: Patient Medication Summary Completed 06/05/2016 Care Plan: CT PELVIS W/O DYE LOINC : 361 08-9 Pending 06/05/2016 Care Plan: CT ABDOMEN W/O DYE LOINC : 36 103-0 Pending 06/05/2016 Care Plan: Referral Order SNOMED-CT : [phone] [id number] Pending 06/05/2016 Appointment: Jayna Vanessa WPtel: [phone] [phone] US INJECTION 05/01/2016 Patient Education: Patient Medication Summary Completed 05/01/2016 Patient Education: Patient Medication Summary Completed 04/26/2016 Care Plan: RML COMPREHEN METABOLIC PANEL LOINC : 48062-0 Pending 04/26/2016 Care Plan: RML ASSAY THYROID STIM HORMONE Pending 04/26/2016 Care Plan: RML ASSAY OF FREE THYROXINE Pe nding 04/26/2016 Care Plan: RML A1C HPLC LOINC : 31846-4 Pending 04/26/2016 Referral: Aditya tSone WPtel: [address] [place] [address] [place], [place] [id number] Arrival time is 10:00 Am~sl Appointment Confirme d 11/25/2015 Visit Plan: Had fasting lab done this AM Continue PT for right shoulder Continue current meds Referral to Dr. Temo Stone for incontinence 11/08/2015 Appointment: Jayna Vanessa WPtel: [phone] [phone] 11/06 confirmed-sp FOLLOW UP 11/08/2015 Patient Education: Patient Medication Summary Completed 11/08/2015 Appointment: Jayna Vanessa WPtel: [phone] [phone] 10/19 rescheduled ~sl RESCHEDULED 10/24/2015 Appointment: Jayna Vanessa WPtel: [phone] [phone] 10/10rang and rang ~sl RESCHEDULED 6 Patient Education: Patient Medication Summary Completed 10/12/2015 Care Plan: RML COMPREHEN METABOLIC PANEL LOINC : 42816-6 Pending 10/12/2015 Care Plan: RML ASSAY THYROID STIM HORMONE Pending 10/12/2015 Care Plan: RML ASSAY OF FREE THYROXINE Pe nding 10/12/2015 Care Plan: RML LIPID PANEL LOINC : 05777 -1 Pending 10/12/2015 Care Plan: CBC Pending 10/12/2015 Care Plan: RML A1C HPLC LOINC : 48073-9 Pending 10/12/2015 Care Plan: VITAMIN D TOTAL (25 HYDROXY) P ending 10/12/2015 Appointment: Jayna Vanessa WPtel: [phone] US CANCELED 09/22/2015 Visit Plan: Lab discussed Change thyroid med back to brand synthroid and recheck thyroid lab in os 07/19/2015 Appointment: Jayna Vanessa WPtel: [phone] [phone] 07/18/15 appt confirmed cn FOLLOW UP 07/19 Patient Education: Patient Medication Summary Completed 07/19/2015 Patient Education: Patient Medication Summary Completed 07/12/2015 Visit Plan: Lab discussed Change synthro id to 150mcg all days but M, W, F will change to 175mcg Check Lab and fwup in os Flu shot given 03/28/2015 Appointment: Jayna Vanessa WPtel: [phone] [phone] 03/25 rang for 1:40 seconds 03/28/ appt confirmed cn FOLLOW UP 03/28/2015 Patient Education: Patient Medication Summary Completed 03/28/2015 Patient Education: Patient Medication Summary Completed 03/21/2015 Visit Plan: Continuue fluoxetine at high er dose Increase synthroid to 150mcg as ordered Decrease propranolol to 20mg po BID Check thyroid lab and fwup in 2mos Prevnar 13 given 02/08/2015 Appointment: Jayna Vanessa WPtel: [address] [place], [place] [phone] [place] [address] FOLLOW UP 02/08/2015 Patient Education: Patient Medication Summary Completed 02/08/2015 Visit Plan: Check CBC, CMP, TSH, Free T4 , uric acid, lactate now Increase fluoxetine to 40mg daily Recheck in 1month Notify if worsening Culture urine 01/11/2015 Appointment: Jayna Vanessa WPtel: [address] [place], [place] [phone] [place] [address] ACUTE ILLNESS 01/11/2015 Patient Education: Patient Medication Summary Completed 01/11/2015 Visit Plan: Lab discussed Accuchecks lucian ly Medrol dose pack Rx for back brace 11/24/2014 Appointment: Jayna Vanessa WPtel: [address] [place], [place] [phone] 6/2 confirmed -mf FOLLOW UP 11/24/2014 Patient Education: Patient Medication Summary Completed 11/24/2014 Appointment: Galina Leos WPtel: [address] [place] [address] ER Follow UP 11/19/2014 Patient Education: Patient Medication Summary Completed 11/19/2014 Appointment: Conchita Capone WPtel: [address] [place] [address] ACUTE ILLNESS 10/27/2014 Patient Education: Patient Medication Summary Completed 10/27/2014 Patient Education: [facility] - Saving AutoInj - 18+ - Dynamic Portal ID Completed 10/27/2014 Appointment: Conchita Capone WPtel: [address] [place] [address] ACUTE ILLNESS 09/23/2014 Patient Education: Patient Medication Summary Completed 09/23/2014 Visit Plan: Lab discussed Continue curre nt meds 07/28/2014 Appointment: Jayna Vanessa WPtel: [phone] [phone] 07/27 FOLLOW UP 07/28/2014 Patient Education: Patient Medication Summary Completed 07/28/2014 Patient Education: Patient Medication Summary Completed 07/21/2014 Patient Education: Patient Medication Summary Completed 04/27/2014 Appointment: Jayna Vanessa WPtel: [address] [place], [place] [phone] 03/29 FOLLOW UP 03/30/2014 Patient Education: Patient Medication Summary Completed 03/30/2014 Patient Education: [facility] - Saving AutoInj - 18+ - Dynamic Portal ID Completed 03/30/2014 Visit Plan: Lab discussed DC Vytorin Tri al of Lipitor 80mg q HS Continue Trilipix Check Lipids/CMP/thyroid and HbA1C in 4mos then fwup 11/24/2013 Appointment: Jayna Vanessa WPtel: [address] [place], [place] [phone] FOLLOW UP 11/24/2013 Patient Education: Patient Medication Summary Completed 11/24/2013 Patient Education: [facility] - Saving AutoInj - 18+ - Dynamic Portal ID Completed 11/24/2013 Visit Plan: Lab discussed Daily accuchec ks Cont current meds 08/25/2013 Appointment: Jayna Vanessa WPtel: [address] [place], [place] [phone] 08/24 FOLLOW UP 08/25/2013 Patient Education: Patient Medication Summary Completed 08/25/2013 Appointment: Jayna Vanessa WPtel: [address] [place], [place] [phone] FOLLOW UP 08/05/2013 Visit Plan: Continue Wellbutrin/Fluoxeti ne Fasting lab and fwup in 2mos 06/29/2013 Appointment: Jayna Vanessa WPtel: [address] [place], [place] [phone] 06/26 left [facility] FOLLOW UP 06/29/2013 Patient Education: Patient Medication Summary Completed 06/29/2013 Visit Plan: Increase Wellbutrin to 300mg daily Add fluoxetine 20mg daily 05/26/2013 Appointment: Jayna Vanessa WPtel: [address] [place], [place] [phone] FOLLOW UP 05/26/2013 Patient Education: Patient Medication Summary Completed 05/26/2013 Visit Plan: OK to proceed with planned s ulder surgery next week Continue current meds Check fasting lab--CBC, CMP, TSH, free T4, HbA1C, Lipids, Vit D at end of this week prior to surgery 05/06/2013 Appointment: Jayna Vanessa WPtel: [address] [place], [place] [phone] FOLLOW UP 05/06/2013 Patient Education: Patient Medication Summary Completed 05/06/2013 Appointment: Jayna Vanessa WPtel: [address] [place], [place] [phone] ACUTE ILLNESS 04/23/2013 Patient Education: Patient Medication Summary Completed 04/23/2013 Patient Education: [facility] - Saving AutoInj - 18+ - Dynamic Portal ID Completed 04/23/2013 Visit Plan: Decrease Lasix to 20mg daily Leave potassium at 20meq daily Check Chem 7 in 1wk 03/31/2013 Appointment: Jayna Vanessa WPtel: [address] [place], [place] [phone] FOLLOW UP 03/31/2013 Patient Education: Patient Medication Summary Completed 03/31/2013 Appointment: Conchita Capoen WPtel: [address] [place], [place] [phone] ACUTE ILLNESS 03/05/2013 Patient Education: Patient Medication Summary Completed 03/05/2013 Visit Plan: Lab discussed Continue curre nt meds Pt is going to start allergy injections Go for port placement to continue prolastin infusions 02/04/2013 Appointment: Jayna Vanessa WPtel: [address] [place], [place] [phone] ACUTE ILLNESS 02/04/2013 Patient Education: Patient Medication Summary Completed 02/04/2013 Visit Plan: 2-D ECHO discussed See Pulmo nology Pt states cough had went away with allergy meds and then has came back Continue allergy meds and add pepcid BID Discussed allergy testing 11/27/2012 Appointment: Jayna Vanessa WPtel: [address] [place], [place] [phone] FOLLOW UP 11/27/2012 Patient Education: Patient Medication Summary Completed 11/27/2012 Visit Plan: PFTS discussed Proceed with 2-D ECHO and pulmonology evaluation Pt was concerned propranolol could be cause but discussed this is likely not culpri DEANDRE was DCed in 2009, is on PPI, has seen ENT, will restart allergy meds--may need allergy testing 11/11/2012 Appointment: Janya Vanessa WPtel: [address] [place], [place] [phone] FOLLOW UP 11/11/2012 Patient Education: Patient Medication Summary Completed 11/11/2012 Visit Plan: Hold metformin Check CMP, Li pids, TSH, Free T4, HbA1C Check PFTs 10/20/2012 Appointment: Jayna Vanessa WPtel: [address] [place], [place] [phone] 10/17 left message FOLLOW UP 10/20/2012 Patient Education: Patient Medication Summary Completed 10/20/2012 Appointment: Jayna Vanessa WPtel: [address] [place], [place] [phone] 10/13 FOLLOW UP 10/14/2012 Visit Plan: Discussed fluids and rest. W ill monitor for worsening symptoms/fever. Azithromycin, medrol dose pack and refil on cough syrup. Pt. will notify if symptoms worsen or persist. 09/03/2012 Appointment: Lizzie Kelly WPtel: [address] [place], [place] [phone] ACUTE ILLNESS 09/03/2012 Patient Education: Patient Medication Summary Completed 09/03/2012 Visit Plan: discussed that symptoms star edvin around Lion time. Will begin culturelle BID and monitor for fever or worsening symptoms. Fluid intake important. CBC, CMP, sed rate and stool studies. Order written for Mag lab. 07/23/2012 Appointment: Lizzie Kelly WPtel: [phone] [place], [place] [phone] ACUTE ILLNESS 07/23/2012 Patient Education: Patient Medication Summary Completed 07/23/2012 Visit Plan: Increase Metformin to 1000mg po BID Accuchecks daily Continue rest of meds at current dose and low-fat, low-sugar diet with increased exercise Check fasting lab in 4mos Restart Nexium 05/20/2012 Appointment: Jayna Vanessa WPtel: [address] [place], [place] [phone] patient had bad night so missed 05/06 appt...left voicemail 05/19 FOLLOW UP 05/20/2012 Patient Education: Patient Medication Summary Completed 05/20/2012 Appointment: Jayna Vanessa WPtel: [address] [place], [place] [phone] patient had bad night so missed 05/06 appt time. FOLLOW UP 05/06/2012 Appointment: Galina Leos WPtel: [address] [place], [place] [phone] ACUTE ILLNESS 04/04/2012 Patient Education: Patient Medication Summary Completed 04/04/2012 Visit Plan: Cryotherapy as above 02/20/2012 Appointment: Jayna Vanessa WPtel: [address] [place], [place] [phone] 02/18 OFFICE SURGERY 02/20/2012 Patient Education: Patient Medication Summary Completed 02/20/2012 Visit Plan: Increase Metfromin to 1000mg daily Continue all other current meds 01/02/2012 Appointment: Jayna Vanessa WPtel: [address] [place], [place] [phone] FOLLOW UP 01/02/2012 Patient Education: Patient Medication Summary Completed 01/02/2012 Appointment: Lizzie Kelly WPtel: [address] [place], [place] [phone] ACUTE ILLNESS 09/04/2011 Patient Education: Patient Medication Summary Completed 09/04/2011 Visit Plan: Finish Keflex Proceed with c olonoscopy Increase aspirin to 325mg daily for next 2wks Add Vimovo 20/500mg po Daily 08/14/2011 Appointment: Jayna Vanessa WPtel: [address] [place], [place] [phone] [facility] Follow Up 08/14/2011 Patient Education: Patient Medication Summary Completed 08/14/2011 Appointment: Lizzie Kelly WPtel: [address] [place] [address] ACUTE ILLNESS 07/31/2011 Patient Education: Patient Medication Summary Completed 07/31/2011 Visit Plan: Doxy and steroids. Codeine/g uiaf cough syrup. Pt. will monitor for worsening symptoms and notify if fever occurs. Encouraged rest and fluids. 07/25/2011 Appointment: Lizzie Kelly WPtel: [address] [place], [place] [phone] ACUTE ILLNESS 07/25/2011 Patient Education: Patient Medication Summary Completed 07/25/2011 Visit Plan: Check full lab in 3mos Radha nue with all current meds Continue PT for knee 07/12/2011 Appointment: Jayna Vanessa WPtel: [address] [place], [place] [phone] FOLLOW UP 07/12/2011 Patient Education: Patient Medication Summary Completed 07/12/2011 Visit Plan: Continue symbicort for 2 mor e weeks 05/09/2011 Appointment: Jayna Vanessa WPtel: [address] [place], [place] [phone] FOLLOW UP 05/09/2011 Patient Education: Patient Medication Summary Completed 05/09/2011 Appointment: Jayna Vanessa WPtel: [address] [place], [place] [phone] ER Follow UP 05/02/2011 Patient Education: Patient Medication Summary Completed 05/02/2011 Visit Plan: Pt. has recently finished ro und of Cefdinir with no improvement. Chest x-ray, CBC, CMP and mycoplasma order given to pt. Pt. will start Doxycycline. 04/25/2011 Appointment: Lizzie Kelly WPtel: [address] [place], [place] [phone] FOLLOW UP 04/25/2011 Patient Education: Patient Medication Summary Completed 04/25/2011 Appointment: Lizzie Kelly WPtel: [address] [place], [place] [phone] ACUTE ILLNESS 04/04/2011 Patient Education: Patient Medication Summary Completed 04/04/2011 Appointment: Lizzie Kelly WPtel: [address] [place], [place] [phone] ACUTE ILLNESS 04/03/2011 Visit Plan: Decrease Synthroid to 150mcg daily Repeat TSH and Free T4 in 2mos Knee injection as above 03/01/2011 Appointment: Jayna Vanessa WPtel: [address] [place], [place] [phone] 03/01/2011 Patient Education: Patient Medication Summary Completed 03/01/2011 Visit Plan: Increase Synthroid to 175mcg po daily Check TSH, Free T4 in 8wks Injection given to knee as above Continue Pt 01/04/2011 Appointment: Jayna Vanessa WPtel: [address] [place], [place] [phone] FOLLOW UP 01/04/2011 Patient Education: Patient Medication Summary Completed 01/04/2011 Visit Plan: Septra DS, Mupirocin topical . Pt. will observe wound and report worsening symptoms. 12/07/2010 Appointment: Lizzie Kelly WPtel: [address] [place], [place] [phone] ACUTE ILLNESS 12/07/2010 Patient Education: Patient Medication Summary Completed 12/07/2010 Visit Plan: Increase Synthroid to 150mcg po daily Add Metformin Diet and exercise discussed at length again Repeat thyroid US Add Vit D level Will see if polydipsia improves with metformin 10/09/2010 Appointment: Jayna Vanessa WPtel: [address] [place], [place] [phone] FOLLOW UP 10/09/2010 Patient Education: Patient Medication Summary Completed 10/09/2010 Visit Plan: Increase Synthroid to 125mcg daily Decrease Vit D 50,000 u three times a week Discussed HRT Proceed with sleep study Fwup pending sleep study results 08/07/2010 Appointment: Jayna Vanessa WPtel: [address] [place], [place] [phone] FOLLOW UP 08/07/2010 Patient Education: Patient Medication Summary Completed 08/07/2010 Visit Plan: Decrease Synthroid to 100mcg QD Check thyroid lab in 2mos Check estradiol levels in 2mos--discussed HRT Increase Vit D 50,000u to 1 daily M-F 06/06/2010 Appointment: Jayna Vanessa WPtel: [address] [place], [place] [phone] ACUTE ILLNESS 06/06/2010 Patient Education: Patient Medication Summary Completed 06/06/2010 Visit Plan: Injections to knees as above 04/12/2010 Appointment: Jayna Vanessa WPtel: [address] [place], [place] [phone] OFFICE SURGERY 04/12/2010 Patient Education: Patient Medication Summary Completed 04/12/2010 Visit Plan: Decrease Synthroid to 175mcg QD Check lab in 2mos Change daily Vit D to weekly 03/20/2010 Appointment: Jayna Vanessa WPtel: [address] [place], [place] [phone] ESTABLISHED PATIENT 03/20/2010 Patient Education: Patient Medication Summary Completed 03/20/2010 Appointment: Jayna Vanessa WPtel: [address] [place], [place] [phone] ACUTE ILLNESS 01/30/2010 Patient Education: Patient Medication Summary Completed 01/30/2010 Appointment: Jayna Vanessa WPtel: [phone] [phone] ACUTE ILLNESS 01/09/2010 Patient Education: Patient Medication Summary Completed 01/09/2010 Appointment: Jayna Vanessa WPtel: [phone] [phone] BP CHECK 11/07/2009 Patient Education: Patient Medication Summary Completed 11/07/2009 Appointment: Jayna Vanessa WPtel: [phone] [phone] OFFICE SURGERY 10/26/2009 Patient Education: Patient Medication Summary Completed 10/26/2009 Appointment: Lizzie Kelly WPtel: [address] [place], [place] [phone] OFFICE SURGERY 10/17/2009 Patient Education: Patient Medication [...] up appnt. 10/04/2009 Appointment: Lizzie Kelly WPtel: [address] [place], [place] [phone] ACUTE ILLNESS 10/04/2009 Patient Education: Patient Medication Summary Completed 10/04/2009 Visit Plan: E-scribed refils. Pt. report s that she normally has lab work drawn and orders are given (faxed) to her normal lab facility by Patricia. Pt. states her migraine headaches have abated for now and that she is going to see her migraine doctor in [place] in the near future(Dr Cook) Pt will seek re-eval as necessary for acute issues. 09/21/2009 Appointment: Lizzie Kelly WPtel: [address] [place], [place] [id number] [place] CHECK UP 09/21/2009 Patient Education: Patient Medication Summary Completed 09/21/2009 Appointment: Lizzie Kelly WPtel: [phone] [facility] [id number] US CHECK UP 09/20/2009 Appointment: Lizzie Kelly WPtel: [address] [facility] [id number] [place] FOLLOW UP 09/19/2009 Referral: Alf Lang WPtel: [facility] Yang [id number] [place] Referral Appointment Requested Referral: Singh Pina WPtel: [address] [facility] [place] Referral Appointment Requested Referral: Aditya Stone WPtel: [address] [facility] [address] [id number] [place] Referral Appointment Requested Instructions Comment Date [...] going to see her migraine doctor in [place] in the near future(Dr Cook) Pt will [...]
--- OUTSIDE RECORDS SUMMARY | 2022-09-10 17:01 | XMS REPORT | CCD ---
Author Author Marcella Vanessa D.O. Organization [facility] Address [address] [place] [address] Phone Care Team Providers Care Messenger Floorperson Name Role Phone Jayna Vanessa D.O., PP Unavailable CCM Unavailable Summary Purpose Interface Exchange Insurance Providers Payer name Policy type / Coverage type Covered green party ID Effective Begin Date Effective End Date [employer] Commercial Insurance [id number] Unknown Commercial Insurance [id number] Unknown Family history Side Diagnosis Age At Onset Heart disease Unknown Diabetes Unknown Sister Diagnosis Age At Onset Diabetes Unknown Brother Diagnosis Age At Onset Diabetes Unknown Mother Diagnosis Age At Onset Heart disease Unknown Father Diagnosis Age At Onset Heart disease Unknown Social History Social History Element Codes Description Effective Dates Tobacco history SNOMED CT: [id number] Never smoker 04/04/2011 Marital status Unknown 09/21/2009 [...] cystitis ICD-10: N30.00 ICD-9: 595.0 06/29/2022 Active Cervicalgia ICD-10: M54.2 ICD-9: 723.1 10/16/2017 [...] gastroenteritis ICD-10: K52.9 ICD-9: 558.9 07/05/2020 Active 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 11/28/2016 Active [...] ANXIETY STATE NOS ICD-9: 300.00 03/05/2013 Active Trivi-2-gajuowuqhgv 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 02/04/2013 A ctive DYSPNEA [...] Fill Instructions Macrobid 100 mg capsule RxNorm: 252027 Take 1 Capsule(s) Oral t wo times a day 09/05/2022 09/11/2022 Active bupropion HCl XL 300 mg 24 hr tablet, extended release RxNor m: 399021 TAKE 1 Tablet BY MOUTH DAILY IN THE MORNING (replaces 150mg DOSE) 08/29/2022 02/24/2023 Active levothyroxine 150 mcg tablet RxNorm: 326069 TAKE ONE TA BLET BY MOUTH EVERY IN THE MORNING 08/29/2022 02/24/2023 Active ciprofloxacin 250 mg tablet RxNorm: 559316 Take 1 Tablet(s) Ora l Q12H 06/29/2022 07/03/2022 Inactive levothyroxine 150 mcg tablet RxNorm: 372534 Take 1 Tablet(s) Or al QAM 06/03/2022 06/03/2022 Inactive Wellbutrin XL 300 mg 24 hr tablet, extended release RxNorm: 880405 Take 1 Tablet(s) Oral QAM replaces 150mg dose 05/28/2022 05/28/2022 Inactive Xyzal 5 mg tablet RxNorm: 197524 Take 1 Tablet(s) Oral QPM 05/10/2010/06/2022 Active Claritin 10 mg tablet RxNorm: 991373 Take 1 Tablet(s) Oral QAM 04/2409/06/2022 Inactive Flonase Allergy Relief 50 mcg/actuation nasal spray,suspensi on RxNorm: 6032566 Take 1 Ceres Nasal two times a day 05/10/2022 06/08/2022 Inactive Wellbutrin XL 150 mg 24 hr tablet, extended release RxNorm: 054873 Take 1 Tablet(s) Oral QAM 05/10/2022 05/27/2022 Inactive sumatriptan 100 mg tablet RxNorm: 224550 1 Tablet(s) Or al after onset of migraine; may repeat after 2 hours if headache returns, not to exceed 200mg in 24hrs replaces rizatriptan 04/19/2022 04/19/2022 Inactive sumatriptan 100 mg tablet RxNorm: 883990 1 Tablet(s) Or al after onset of migraine; may repeat after 2 hours if headache returns, not to exceed 200mg in 24hrs replaces rizatriptan 04/19/2022 04/19/2022 Inactive propranolol 20 mg tablet RxNorm: 486671 TAKE 1 TABLET BY MOUTH TWICE DAILY 04/18/2022 10/14/2022 Active rizatriptan 10 mg disintegrating tablet RxNorm: 812554 Take 1 Tablet(s) Oral on top of tongue, allow to dissolve then swallow once, may repeat every 2 hrs; max 30 mg/24hrs 04/18/2022 04/18/2022 Inactive prednisone 20 mg tablet RxNorm: 588243 Take 1 Tablet(s) Oral tw o times a day 02/15/2022 02/21/2022 Inactive Nurtec ODT 75 mg disintegrating tablet RxNorm: 6473502 T bria 1 Tablet(s) Oral per 24 hours as needed for migraine 02/09/2022 02/09/2022 Inactive Nurtec ODT 75 mg disintegrating tablet RxNorm: 4492023 T bria 1 Tablet(s) Oral per 24 hours as needed for migraine 02/09/2022 02/09/2022 Inactive fluticasone propionate 50 mcg/actuation nasal spray,suspensi on RxNorm: 9953710 SPRAY ONE SPRAY IN EACH NOSTRIL TWICE DAILY NEEDED 02/05/20222021 Inactive levothyroxine 150 mcg tablet RxNorm: 400716 Take 1 Tablet(s) Or al QAM 02/04/2022 02/04/2022 Inactive albuterol sulfate HFA 90 mcg/actuation aerosol inhaler RxNor m: 9948344 Inhale 2 Puff(s) Oral Q4H as needed 01/05/2022 04/04/2022 Inactive pantoprazole 40 mg tablet,delayed release RxNorm: 784941 Take 1 Tablet(s) Oral QD 01/04/2022 07/02/2022 Inactive propranolol 20 mg tablet RxNorm: 563099 TAKE 1 TABLET BY MOUTH TWICE DAILY 01/04/2022 04/17/2022 Inactive levothyroxine 150 mcg tablet RxNorm: 370897 Take 1 Tablet(s) Or al QAM 12/05/2021 12/05/2021 Inactive metronidazole 500 mg tablet RxNorm: 123466 Take 1 Table t(s) Oral two times a day 11/29/2021 12/05/2021 Inactive Singulair 10 mg tablet RxNorm: 477793 Take 1 Tablet(s) Oral QPM 06/202105/09/2022 Inactive Diflucan 100 mg tablet RxNorm: 173738 Take 1 Tablet(s) Oral QD 06/202111/28/2021 Inactive pantoprazole 40 mg tablet,delayed release RxNorm: 685429 Take 1 Tablet(s) Oral QD 11/06/2021 11/06/2021 Inactive fluticasone propionate 50 mcg/actuation nasal spray,suspensi on RxNorm: 7038199 SPRAY ONE SPRAY IN EACH NOSTRIL TWICE DAILY NEEDED 11/03/20212021 Inactive scopolamine 1 mg over 3 days transdermal patch RxNorm: 33137 2 Apply 1 Unit Dose Transdermal Q72H behind ear 10/30/2021 02/05/2022 Inactive albuterol sulfate HFA 90 mcg/actuation aerosol inhaler RxNor m: 4784560 Inhale 2 Puff(s) Oral Q4H as needed 10/05/2021 11/24/2021 Inactive pantoprazole 40 mg tablet,delayed release RxNorm: 163772 Take 1 Tablet(s) Oral QD 10/05/2021 10/05/2021 Inactive meloxicam 7.5 mg tablet RxNorm: 318670 Take 1 Tablet(s) Oral QD for pain 09/05/2021 09/11/2021 Inactive baclofen 10 mg tablet RxNorm: 281741 Take 0.5-1 Tablet( s) Oral three times per week as needed for muscle spasm 09/05/2021 02/05/2022 Inactive prednisone 20 mg tablet RxNorm: 611624 Take 1 Tablet(s) Oral QD 08/202108/28/2021 Inactive pantoprazole 40 mg tablet,delayed release RxNorm: 073257 Take 1 Tablet(s) Oral QD 07/07/2021 09/04/2021 Inactive fluticasone propionate 50 mcg/actuation nasal spray,suspensi on RxNorm: 4379733 Take 1 Ceres Nasal two times a day in each nostrilas needed 07/04/2021 10/01/2021 Inactive Decadron 6 mg tablet RxNorm: 470964 Take 1 Tablet(s) Oral QD 202107/08/2021 Inactive albuterol sulfate HFA 90 mcg/actuation aerosol inhaler RxNor m: 5846367 Inhale 2 Puff(s) Oral Q4H as needed 06/08/2021 09/05/2021 Inactive propranolol 20 mg tablet RxNorm: 974071 TAKE 1 TABLET BY MOUTH TWICE DAILY 06/08/2021 06/08/2021 Inactive pantoprazole 40 mg tablet,delayed release RxNorm: 904273 Take 1 Tablet(s) Oral QD 04/09/2021 06/07/2021 Inactive ProAir HFA 90 mcg/actuation aerosol inhaler RxNorm: 443252 2 Puff(s) Inhalation Q4H as needed 03/13/2021 03/13/2021 Inactive citalopram 10 mg tablet RxNorm: 191537 1 Tablet(s) Oral two antonio es a day 03/13/2021 02/05/2022 Inactive levothyroxine 150 mcg tablet RxNorm: 909098 TAKE 1 Tabl et BY MOUTH EVERY MORNING (REPLACES 137 MCG DOSE) 03/09/2021 03/09/2021 Inactive pantoprazole 40 mg tablet,delayed release RxNorm: 552029 Take 1 Tablet(s) Oral QD 02/08/2021 04/08/2021 Inactive triamcinolone acetonide 0.1 % topical cream RxNorm: 4839124 Take Application Topical two times a day to arm rash 01/19/2021 01/19/2021 Inactive prednisone 20 mg tablet RxNorm: 620809 Take 1 Tablet(s) Oral QD 01/23/2021 Inactive levothyroxine 150 mcg tablet RxNorm: 214155 Take 1 Tabl et(s) Oral QAM replaces 137mcg dose 01/03/2021 01/03/2021 Inactive prednisone 20 mg tablet RxNorm: 917230 Take 2 Tablet(s) Oral QD 01/202112/03/2020 Inactive promethazine-DM 6.25 mg-15 mg/5 mL oral syrup RxNorm: 263204 Take 5 Milliliter(s) Oral Every 6 hours as needed, not to exceed 30 mL in 24 hours 11/29/2020 12/03/2020 Inactive doxycycline hyclate 100 mg capsule RxNorm: 6683707 1 Cap kimi(s) Oral two times a day 09/29/2020 10/05/2020 Inactive Lalita-D 12 Hour 60 mg-120 mg tablet,extended release RxNor m: 667457 1 Tablet(s) Oral QD 09/19/2020 10/03/2020 Inactive ProAir HFA 90 mcg/actuation aerosol inhaler RxNorm: 736425 2 Inhalation Q4H as needed 09/19/2020 09/19/2020 Inactive propranolol 20 mg tablet RxNorm: 669503 TAKE 1 TABLET BY MOUTH TWICE DAILY 09/15/2020 09/15/2020 Inactive pantoprazole 40 mg tablet,delayed release RxNorm: 680796 1 Tabl et(s) Oral QD 09/09/2020 09/08/2020 Inactive pantoprazole 40 mg tablet,delayed release RxNorm: 613356 1 Tabl et(s) Oral QD 09/09/2020 11/07/2020 Inactive propranolol 20 mg tablet RxNorm: 281668 TAKE 1 TABLET BY MOUTH TWICE DAILY 08/24/2020 09/09/2020 Inactive levothyroxine 137 mcg tablet RxNorm: 896818 1 Tablet(s) Oral QD 08/202001/02/2021 Inactive nnsewkwa-ghuyeazwz-dfhnkjas 3.5 mg/mL-10,000 unit/mL-0 .1% eye drops RxNorm: 939778 4 Drop(s) Otic three times a day 08/10/2020 02/05/2022 Inactive prednisone 20 mg tablet RxNorm: 331837 1 Tablet(s) Oral two antonio es a day 08/01/2020 08/08/2020 Inactive pantoprazole 40 mg tablet,delayed release RxNorm: 091683 1 Tabl et(s) Oral QD 07/13/2020 09/08/2020 Inactive ondansetron HCl 4 mg tablet RxNorm: 204108 1 Tablet(s) Oral Q4H as needed for nausea 07/13/2020 05/09/2022 Inactive levothyroxine 137 mcg tablet RxNorm: 561934 1 Tablet(s) Oral QD 08/23/2020 Inactive pantoprazole 40 mg tablet,delayed release RxNorm: 474644 1 Tabl et(s) Oral QD 07/13/2020 07/12/2020 Inactive ondansetron HCl 4 mg tablet RxNorm: 579904 1 Tablet(s) Oral Q4H as needed for nausea 07/05/2020 07/12/2020 Inactive Flagyl 500 mg tablet RxNorm: 001030 1 Tablet(s) Oral three time s a day 07/05/2020 07/12/2020 Inactive Fish Oil 1,000 mg (120 mg-180 mg) capsule RxNorm: 1 Caps ule(s) Oral QD 06/23/2020 09/18/2020 Inactive rosuvastatin 10 mg tablet RxNorm: 270691 1 Tablet(s) Oral MWF 06/2306/22/2020 Inactive rosuvastatin 10 mg tablet RxNorm: 960290 1 Tablet(s) Oral MWF 06/2302/05/2022 Inactive fluconazole 100 mg tablet RxNorm: 406204 1 Tablet(s) Oral QOD 05/1706/21/2020 Inactive Macrobid 100 mg capsule RxNorm: 986431 1 Capsule(s) Oral two ti mes a day 05/17/2020 05/24/2020 Inactive levothyroxine 137 mcg tablet RxNorm: 771673 TAKE 1 TABLET BY [facility] ONCE DAILY 05/16/2020 07/12/2020 Inactive Eliquis 5 mg tablet RxNorm: 0848394 1 Tablet(s) Oral two times a da y 04/25/2020 02/05/2022 Inactive propranolol 20 mg tablet RxNorm: 962162 TAKE 1 TABLET BY MOUTH TWICE DAILY 04/25/2020 08/23/2020 Inactive doxycycline hyclate 100 mg capsule RxNorm: 5854312 1 Cap kimi(s) Oral two times a day 03/24/2020 03/31/2020 Inactive doxycycline hyclate 100 mg capsule RxNorm: 0345151 1 Cap kimi(s) Oral two times a day 03/24/2020 03/23/2020 Inactive propranolol 20 mg tablet RxNorm: 951154 TAKE 1 TABLET BY MOUTH TWICE DAILY 03/15/2020 04/13/2020 Inactive Eliquis 5 mg tablet RxNorm: 9141515 1 Tablet(s) Oral two times a da y 03/14/2020 04/24/2020 Inactive Eliquis 5 mg tablet RxNorm: 3617714 1 Tablet(s) Oral two times a da y 03/14/2020 03/13/2020 Inactive levofloxacin 500 mg tablet RxNorm: 309821 1 Tablet(s) Oral QD 02/1802/26/2020 Inactive levofloxacin 500 mg tablet RxNorm: 064392 1 Tablet(s) Oral QD 02/1802/18/2020 Inactive Tessalon Perles 100 mg capsule RxNorm: 638060 1 Capsule (s) Oral three times a day as needed 02/16/2020 02/25/2020 Inactive levothyroxine 137 mcg tablet RxNorm: 958520 TAKE 1 TABLET BY [facility] ONCE DAILY 02/15/2020 03/15/2020 Inactive ProAir HFA 90 mcg/actuation aerosol inhaler RxNorm: 944952 2 Inhalation Q4H as needed 02/11/2020 09/18/2020 Inactive Medrol (Isaiah) 4 mg tablets in a dose pack RxNorm: 702031 Tablet( s) Oral 02/11/2020 02/11/2020 Inactive levothyroxine 137 mcg tablet RxNorm: 967801 TAKE 1 TABLET BY [facility] ONCE DAILY 12/16/2019 01/14/2020 Inactive propranolol 20 mg tablet RxNorm: 607084 TAKE 1 TABLET BY MOUTH TWICE DAILY 12/16/2019 01/14/2020 Inactive levothyroxine 137 mcg tablet RxNorm: 398529 TAKE 1 TABLET BY [facility] ONCE DAILY 10/16/2019 11/14/2019 Inactive prednisone 20 mg tablet RxNorm: 144690 1 Tablet(s) Oral two times a day for rash/hives 09/29/2019 10/04/2019 Inactive Probiotic 10 billion cell capsule RxNorm: 2430911 1 Capsule(s) O ral QD 09/14/2019 02/10/2020 Inactive Bactrim DS 800 mg-160 mg tablet RxNorm: 695760 1 Tablet(s) Oral two times a day 09/14/2019 09/13/2019 Inactive citalopram 10 mg tablet RxNorm: 356509 1 Tablet(s) Oral two antonio es a day 09/14/2019 12/20/2019 Inactive hydroxychloroquine 200 mg tablet RxNorm: 731047 1 Table t(s) Oral two times a day 09/14/2019 02/05/2022 Inactive Bactrim DS 800 mg-160 mg tablet RxNorm: 416209 1 Tablet(s) Oral two times a day 09/14/2019 09/24/2019 Inactive Cipro 250 mg tablet RxNorm: 655660 1 Tablet(s) Oral two times a day 09/02/2019 09/08/2019 Inactive levothyroxine 137 mcg tablet RxNorm: 078741 1 Tablet(s) Oral QD 10/10/2019 Inactive levothyroxine 137 mcg tablet RxNorm: 326477 1 Tablet(s) Oral QD 08/11/2019 Inactive propranolol 20 mg tablet RxNorm: 452198 TAKE 1 TABLET BY MOUTH TWICE DAILY 06/18/2019 12/14/2019 Inactive 06/18/2019 11:09:41 AM Cipro 250 mg tablet RxNorm: 591878 1 Tablet(s) Oral two times a day 04/17/2019 04/16/2019 Inactive Cipro 250 mg tablet RxNorm: 074711 1 Tablet(s) Oral two times a day 04/17/2019 04/24/2019 Inactive Macrobid 100 mg capsule RxNorm: 569711 1 Capsule(s) Oral two ti mes a day 04/15/2019 04/16/2019 Inactive metronidazole 500 mg tablet RxNorm: 801573 1 Tablet(s) Oral thr ee times a day 03/18/2019 03/28/2019 Inactive Bactrim DS 800 mg-160 mg tablet RxNorm: 947667 1 Tablet(s) Oral two times a day 03/18/2019 03/18/2019 Inactive Cipro 250 mg tablet RxNorm: 750112 1 Tablet(s) PO BID 01/26/201901/22 Inactive Flagyl 500 mg tablet RxNorm: 269974 1 Tablet(s) PO TID 01/26/201904/2019 Inactive prednisone 20 mg tablet RxNorm: 358818 1 Tablet(s) PO B ID for 4 days then 1 po daily for 4 days 01/08/2019 03/17/2019 Inactive doxycycline hyclate 100 mg capsule RxNorm: 5727542 1 Capsule(s) PO BID 01/08/2019 01/14/2019 Inactive doxycycline hyclate 100 mg capsule RxNorm: 5311968 1 Capsule(s) PO BID 01/08/2019 01/07/2019 Inactive propranolol 20 mg tablet RxNorm: 311762 1 Tablet(s) PO BID 12/24/1906/17/2019 Inactive Bactrim DS 800 mg-160 mg tablet RxNorm: 676909 1 Tablet (s) PO BID repeat urine culture 48 hours after antibiotics completed. 12/15/2018 12/14/2018 In active Bactrim DS 800 mg-160 mg tablet RxNorm: 351848 1 Tablet (s) PO BID repeat urine culture 48 hours after antibiotics completed. 12/15/2018 12/19/2018 In active levothyroxine 137 mcg tablet RxNorm: 343716 1 Tablet(s) PO QD 12/0906/06/2019 Inactive meclizine 25 mg tablet RxNorm: 117258 1 Tablet(s) PO TID for di zziness 10/30/2018 11/08/2018 Inactive doxycycline hyclate 100 mg tablet RxNorm: 8833064 1 Tablet(s) PO BI D 10/07/2018 10/16/2018 Inactive albuterol sulfate HFA 90 mcg/actuation aerosol inhaler RxNor m: 039215 2 Puff(s) INH Q4H as needed 10/07/2018 02/10/2020 Inactive chlorpheniramine 4 mg tablet RxNorm: 3553772 1 Tablet(s) PO QHS for allergies 10/07/2018 03/17/2019 Inactive Tessalon 200 mg capsule RxNorm: 018893 1 Capsule(s) PO TID 10/08/1910/26/2018 Inactive doxycycline hyclate 100 mg tablet RxNorm: 3991845 1 Tablet(s) PO BI D 10/07/2018 10/06/2018 Inactive Tessalon 200 mg capsule RxNorm: 151612 1 Capsule(s) PO TID 10/08/1910/06/2018 Inactive levothyroxine 137 mcg tablet RxNorm: 464242 1 Tablet(s) PO QD 08/0512/02/2018 Inactive propranolol 20 mg tablet RxNorm: 727447 1 Tablet(s) PO BID 06/23/2012/19/2018 Inactive chlorpheniramine 4 mg tablet RxNorm: 8971960 1 Tablet(s) PO QHS for allergies 06/23/2018 08/21/2018 Inactive levothyroxine 137 mcg tablet RxNorm: 103344 1 Tablet(s) PO QD 06/0308/01/2018 Inactive levothyroxine 137 mcg tablet RxNorm: 773457 1 Tablet(s) PO QD 06/0306/02/2018 Inactive Synthroid 150 mcg tablet RxNorm: 693743 1 Tablet(s) PO QD 04/03/2018 06/22/2018 Inactive Synthroid 150 mcg tablet RxNorm: 990969 1 Tablet(s) PO QD 04/03/2018 04/02/2018 Inactive propranolol 20 mg tablet RxNorm: 279946 1 Tablet(s) PO BID 03/17/20 18 06/14/2018 Inactive propranolol 20 mg tablet RxNorm: 294584 1 Tablet(s) PO BID 03/17/20 18 06/21/2020 Inactive Lancets,Ultra Thin RxNorm: Miscellaneous Use to test blood sugar daily and as needed (Dx: E11.65) 02/28/2018 05/09/2022 Inactive Contour Test Strips RxNorm: Miscellaneous Test b lood sugar daily and as needed (Dx: E11.65) 02/28/2018 05/09/2022 Inactive Contour Meter RxNorm: 1 Miscellaneous DX: E11.65 02/27/20182021 Inactive DX: E11.65 Synthroid 175 mcg tablet RxNorm: 508828 1 Tablet(s) PO QD 01/28/2018 04/02/2018 Inactive Synthroid 175 mcg tablet RxNorm: 903288 1 Tablet(s) PO QD 01/16/2018 04/02/2018 Inactive Medrol (Isaiah) 4 mg tablets in a dose pack RxNorm: 711637 Tablet(s) P O 10/16/2017 01/15/2018 Inactive cyclobenzaprine 7.5 mg tablet RxNorm: 663446 1/2-1 Tablet(s) PO TID as needed 10/16/2017 06/22/2018 Inactive pantoprazole 40 mg tablet,delayed release RxNorm: 608632 1 Tabl et(s) PO QD 08/21/2017 06/22/2018 Inactive Nexium 40 mg capsule,delayed release RxNorm: 918479 1 Capsule(s ) PO QD 08/20/2017 08/20/2017 Inactive doxycycline hyclate 100 mg capsule RxNorm: 8209438 1 Capsule(s) PO BID 08/13/2017 08/12/2017 Inactive doxycycline hyclate 100 mg capsule RxNorm: 4937843 1 Capsule(s) PO BID 08/13/2017 08/19/2017 Inactive Tessalon Perles 100 mg capsule RxNorm: 774808 1 Capsule(s) PO T ID as needed 07/29/2017 08/07/2017 Inactive prednisone 20 mg tablet RxNorm: 789340 1 Tablet(s) PO BID 07/25/2017 07/27/2017 Inactive albuterol sulfate HFA 90 mcg/actuation aerosol inhaler RxNor m: 547301 2 Puff(s) INH Q4H as needed 07/25/2017 10/06/2018 Inactive doxycycline hyclate 100 mg capsule RxNorm: 7690241 1 Capsule(s) PO BID 06/10/2017 06/19/2017 Inactive prednisone 20 mg tablet RxNorm: 933860 1 Tablet(s) PO T ID for 2 days then 1 po BID for 2 days then 1 daily for 3 days 06/10/2017 08/12/2017 Inactive fenofibrate micronized 134 mg capsule RxNorm: 752480 TAKE 1 CAP KIMI DAILY 06/03/2017 06/22/2018 Inactive Zithromax Z-Isaiah 250 mg tablet RxNorm: 574480 Tablet(s) PO Take as directed 05/28/2017 06/09/2017 Inactive prednisone 20 mg tablet RxNorm: 159203 2 Tablet(s) PO QD 05/28/2017 1 08/01/2016 Inactive Tessalon Perles 100 mg capsule RxNorm: 378178 1 Capsule(s) PO T ID as needed 05/28/2017 06/09/2017 Inactive Janumet XR 100 mg-1,000 mg tablet,extended release RxNorm: 1 157471 1 Tablet(s) PO QD 02/14/2017 06/22/2018 Inactive fluoxetine 40 mg capsule RxNorm: 121951 1 Capsule(s) PO QD 02/15/2006/22/2018 Inactive Vitamin D2 50,000 unit capsule RxNorm: 505619 1 Capsule (s) PO TAKE 1 CAPSULE BY MOUTH TWICE WEEKLY 02/11/2017 07/10/2017 Inactive Generic For:* DRISDOL [id number] 02/03/2015 10:10:59 AM Janumet XR 100 mg-1,000 mg tablet,extended release RxNorm: 1 545132 1 Tablet(s) PO QD 09/24/2016 10/06/2018 Inactive Vitamin D2 50,000 unit capsule RxNorm: 798750 Capsule(s ) TAKE 1 CAPSULE BY MOUTH TWICE WEEKLY 09/11/2016 02/11/2017 Inactive Generic For:*DRI SDOL [id number] 02/03/2015 10:10:59 AM Pepcid 20 mg tablet RxNorm: 763414 Tablet(s) PO TAKE 1 TABLET BY MOUTH TWICE DAILY. 06/14/2016 06/13/2016 Inactive fluoxetine 40 mg capsule RxNorm: 580062 1 Capsule(s) PO QD 06/14/20 16 12/10/2016 Inactive loratadine 10 mg tablet RxNorm: 728218 1 Tablet(s) PO QD 1 Tabl et(s) PO BID 06/14/2016 04/03/2017 Inactive [AttnRPh: Saving ryan ly/adjudicate RxGRP:SG20 RxBIN:[id number] RxPCN: ID#:[id number]] Vitamin D2 50,000 unit capsule RxNorm: 488390 Capsule(s ) TAKE 1 CAPSULE BY MOUTH TWICE WEEKLY 06/14/2016 09/10/2016 Inactive Generic For:*DRI SDOL [id number] 02/03/2015 10:10:59 AM Synthroid 175 mcg tablet RxNorm: 474763 1 Tablet(s) PO Saturday t hrough Saturday QD 06/05/2016 01/15/2018 Inactive Synthroid 150 mcg tablet RxNorm: 178677 1 Tablet(s) PO Sat and Sun 11/09/2015 06/04/2016 Inactive Synthroid 175 mcg tablet RxNorm: 585313 1 Tablet(s) PO Saturday t hrough Saturday11/09/2015 06/04/2016 Inactive Synthroid 150 mcg tablet RxNorm: 120333 1 Tablet(s) PO Sat and Sun , Sat, Sun 11/09/2015 11/08/2015 Inactive Janumet XR 100 mg-1,000 mg tablet,extended release RxNorm: 1 681143 TAKE 1 TABLET DAILY 09/30/2015 09/24/2016 Inactive azithromycin 500 mg tablet RxNorm: 363033 1 Tablet(s) PO QD 016 07/25/2015 Inactive azithromycin 500 mg tablet RxNorm: 433766 1 Tablet(s) PO QD 016 08/01/2015 Inactive loratadine 10 mg tablet RxNorm: 784936 1 Tablet(s) PO BID 04/06/2015 06/14/2016 Inactive [AttnRPh: Saving apply/adjudicate RxGRP: SG20 RxBIN:[id number] RxPCN: ID#:[id number]] Synthroid 175 mcg tablet RxNorm: 721314 1 Tablet(s) PO M, W, F 10/201411/08/2015 Inactive Synthroid 150 mcg tablet RxNorm: 388651 1 Tablet(s) PO QD Tu, T h, Sat, Sun 03/28/2015 11/08/2015 Inactive propranolol 20 mg tablet RxNorm: 003361 1 Tablet(s) PO BID 02/09/20 15 06/13/2016 Inactive fluoxetine 40 mg capsule RxNorm: 782254 1 Capsule(s) PO QD 02/09/20 15 06/14/2016 Inactive Vitamin D2 50,000 unit capsule RxNorm: 611615 TAKE 1 CA PSULE BY MOUTH TWICE WEEKLY 02/03/2015 06/14/2016 Inactive Generic For:*DRI SDOL [id number] 02/03/2015 10:10:59 AM Lipitor 80 mg tablet RxNorm: 893679 1 Tablet(s) PO QD 01/24/201507/26 Inactive [AttnRPh: Saving apply/adjudicate RxGRP: SG20 RxBIN:[id number] RxPCN: ID#:[id number]] Bactrim DS 800 mg-160 mg tablet RxNorm: 293420 1 Tablet(s) PO BID 0 01/12/2015 01/11/2015 Inactive Synthroid 150 mcg tablet RxNorm: 010794 1 Tablet(s) PO QD 01/12/2015 03/27/2015 Inactive Bactrim DS 800 mg-160 mg tablet RxNorm: 438815 1 Tablet(s) PO BID 0 01/12/2015 01/18/2015 Inactive fluoxetine 40 mg capsule RxNorm: 613063 1 Capsule(s) PO QD 01/12/20 15 02/07/2015 Inactive Synthroid 137 mcg tablet RxNorm: 502288 1 Tablet(s) PO QD 12/08/2014 01/11/2015 Inactive [AttnRPh: Saving apply/adjudicate RxGRP: SG20 RxBIN:[id number] RxPCN: ID#:[id number]] Medrol (Isaiah) 4 mg tablets in a dose pack RxNorm: 801178 6 Tablet(s) PO QD --then as directed 11/24/2014 11/29/2014 Inactive albuterol sulfate HFA 90 mcg/actuation aerosol inhaler RxNor m: 268280 2 Puff(s) INH Q4H as needed 10/27/2014 07/24/2017 Inactive phenazopyridine 100 mg tablet RxNorm: 3760057 1 Tablet(s) PO TID 11/07/2015 Inactive [AttnRPh: Saving apply/adjud icate RxGRP:SG20 RxBIN:[id number] RxPCN: ID#:[id number]] Macrobid 100 mg capsule RxNorm: 391071 1 Capsule(s) PO BID 10/28/19 15 11/02/2014 Inactive [SAVINGS FOR NON-COVERED RUBIO GS -- BIN:[id number], PCN: ASPROD1, Group: XXXXX, ID# [id number], Questions: . THIS IS NOT INSURANCE.] prednisone 20 mg tablet RxNorm: 247064 1 Tablet(s) PO BID 10/27/2014 10/31/2014 Inactive AttnRPh: Saving apply/adjudicate RxGRP:S G20 RxBIN:[id number] RxPCN:HT ID#:[id number]: Saving apply/adjudicate RxGRP:SG20 RxBIN:[id number] RxPCN:HT ID#:[id number] Macrobid 100 mg capsule RxNorm: 884865 1 Capsule(s) PO BID 09/24/19 15 09/29/2014 Inactive [SAVINGS FOR NON-COVERED RUBIO GS -- BIN:[id number], PCN: ASPROD1, Group: XXXXX, ID# [id number], Questions: . THIS IS NOT INSURANCE.] phenazopyridine 100 mg tablet RxNorm: 7525771 1 Tablet(s) PO TID 09/24/2014 Inactive [SAVINGS FOR NON-COVERED RUBIO GS -- BIN:915256, PCN: ASPROD1, Group: XXXXX, ID# [id number], Questions: . THIS IS NOT INSURANCE.] propranolol 60 mg tablet RxNorm: 957395 1 Tablet(s) PO QD 07/26/2014 02/07/2015 Inactive [SAVINGS FOR UNINSURED PATIENTS -- BIN:0 [id number], PCN: ASPROD1, Group: [id number], ID# [id number], Process claim through [employer], for questions: . THIS IS NOT INSURANCE.] loratadine 10 mg tablet RxNorm: 633430 1 Tablet(s) PO BID 07/12/2014 07/11/2014 Inactive [AttnRPh: Saving apply/adjudicate RxGRP: [id number] RxBIN:[id number] RxPCN: ID#:[id number]] loratadine 10 mg tablet RxNorm: 101235 1 Tablet(s) PO BID 07/12/2014 10/06/2018 Inactive [SAVINGS FOR UNINSURED PATIENTS -- BIN:0 [id number], PCN: ASPROD1, Group: [id number], ID# [id number], Process claim through [employer], for questions: . THIS IS NOT INSURANCE.] Vitamin D2 50,000 unit capsule RxNorm: 284239 1 Capsule (s) PO Take 1 capsule by mouth twice weekly 05/18/2014 02/02/2015 Inactive Pepcid 20 mg tablet RxNorm: 931616 TAKE 1 TABLET BY MOUTH TWICE DAILY. 05/18/2014 06/14/2016 Inactive Generic For:PEPCID 2 0MG 05/18/2014 11:28:51 AM Janumet XR 100 mg-1,000 mg tablet,extended release RxNorm: 1 646613 1 Tablet(s) PO QD 05/12/2014 08/09/2014 Inactive [SAVINGS FOR UNI NSURED PATIENTS -- BIN:[id number], PCN: ASPROD1, Group: [id number], ID# [id number], Process claim through [employer], for questions: . THIS IS NOT INSURANCE.] Voltaren 1 % topical gel RxNorm: 080067 TOP BID 04/21/2014 5 Inactive Apply to affected areas 2-3 times daily as needed. Trilipix 135 mg capsule,delayed release RxNorm: 707707 1 Tablet(s) PO QD 1 Capsule(s) PO QD 04/21/2014 09/17/2014 Inactive may do 90 day f ill if desired Synthroid 137 mcg tablet RxNorm: 036555 1 Tablet(s) PO QD 03/30/2014 09/25/2014 Inactive [AttnRPh: Saving apply/adjudicate RxGRP: SG20 RxBIN:[id number] RxPCN: ID#:[id number]] Cipro 250 mg tablet RxNorm: 357814 1 Tablet(s) PO BID 03/30/201403/24 Inactive [SAVINGS FOR UNINSURED PATIENTS -- BIN:[id number], PCN: ASPROD1, Group: [id number], ID# [id number], Process claim through MedImp[employer], for questions: . THIS IS NOT INSURANCE.] Janumet XR 100 mg-1,000 mg tablet,extended release RxNorm: 1 591976 2 Tablet(s) PO QD 01/06/2014 01/05/2014 Inactive [SAVINGS FOR UNI NSURED PATIENTS -- BIN:[id number], PCN: ASPROD1, Group: [id number], ID# [id number], Process claim through [employer], for questions: . THIS IS NOT INSURANCE.] Janumet XR 100 mg-1,000 mg tablet,extended release RxNorm: 1 219483 1 Tablet(s) PO QD 01/06/2014 04/05/2014 Inactive [SAVINGS FOR UNI NSURED PATIENTS -- BIN:[id number], PCN: ASPROD1, Group: [id number], ID# [id number], Process claim through [employer], for questions: . THIS IS NOT INSURANCE.] propranolol 60 mg tablet RxNorm: 496722 1 Tablet(s) PO QD 12/28/2013 07/26/2014 Inactive [AttnRPh: Saving apply/adjudicate RxGRP: SG20 RxBIN:[id number] RxPCN: ID#:[id number]] Synthroid 150 mcg tablet RxNorm: 162101 1 Tablet(s) PO QD brand onl y 12/28/2013 04/20/2014 Inactive [AttnRPh: Saving apply/adjud icate RxGRP:SG20 RxBIN:[id number] RxPCN:HT ID#:[id number]] Vitamin D2 50,000 unit capsule RxNorm: 994061 1 Capsule (s) PO Take 1 capsule by mouth twice weekly 12/02/2013 05/17/2014 Inactive Lipitor 80 mg tablet RxNorm: 106797 1 Tablet(s) PO QD 11/24/201305/25 Inactive [AttnRPh: Saving apply/adjudicate RxGRP: SG20 RxBIN:[id number] RxN: ID#:[id number]] loratadine 10 mg tablet RxNorm: 675587 1 Tablet(s) PO BID 11/17/2013 07/12/2014 Inactive fluoxetine 20 mg capsule RxNorm: 714222 1 Capsule(s) PO QAM TAKE ONE CAPSULE BY MOUTH ONCE DAILY IN THE MORNING. 11/04/2013 01/10/2015 Inactive Generic For:PROZAC 20MG Generic For:PROZAC 20MG 06/23/2013 11:55:55 AM [AttnRPh: Saving apply/adjudicate RxGRP:SG20 RxBIN:[id number] RxPCN: ID#:[id number]] Vytorin 10 mg-80 mg tablet RxNorm: 2156146 Tablet(s) PO TAKE ONE TABLET BY MOUTH ONCE DAILY IN THE EVENING. 09/30/2013 11/23/2013 Inactive Trilipix 135 mg capsule,delayed release RxNorm: 301251 1 Capsul e(s) PO QD 07/15/2013 04/21/2014 Inactive may do 90 day fill i f desired Voltaren 1 % topical gel RxNorm: 889814 TOP BID 07/15/2013 4 Inactive Apply to affected areas 2-3 times daily as needed. Wellbutrin XL 300 mg 24 hr tablet, extended release RxNorm: 701063 1 Tablet(s) PO QAM 06/29/2013 04/03/2017 Inactive fluoxetine 20 mg capsule RxNorm: 495042 1 Capsule(s) PO QAM TAKE ONE CAPSULE BY MOUTH ONCE DAILY IN THE MORNING. 06/29/2013 11/04/2013 Inactive Generic For:PROZAC 20MG Generic For:PROZAC 20MG 06/23/2013 11:55:55 AM fluoxetine 20 mg capsule RxNorm: 048483 Capsule(s) PO T BRIA ONE CAPSULE BY MOUTH ONCE DAILY IN THE MORNING. 06/23/2013 06/28/2013 Inactive Gener ic For:PROZAC 20MG Generic For:PROZAC 20MG 06/23/2013 11:55:55 AM Synthroid 150 mcg tablet RxNorm: 671672 1 Tablet(s) PO QD brand onl y 06/08/2013 12/04/2013 Inactive Vytorin 10 mg-80 mg tablet RxNorm: 0138741 1 Tablet(s) PO QD 201209/05/2013 Inactive TAKE 1 TABLET BY MOUTH DAILY propranolol 60 mg tablet RxNorm: 572960 1 Tablet(s) PO QD 06/08/2013 12/04/2013 Inactive Pepcid 20 mg tablet RxNorm: 447015 Tablet(s) PO TAKE 1 TABLET BY MOUTH TWICE DAILY. 06/04/2013 11/23/2013 Inactive fluoxetine 20 mg capsule RxNorm: 842518 1 Capsule(s) PO QAM 013 06/22/2013 Inactive Wellbutrin XL 300 mg 24 hr tablet, extended release RxNorm: 094235 1 Tablet(s) PO QAM 05/26/2013 06/28/2013 Inactive Wellbutrin XL 150 mg 24 hr tablet, extended release RxNorm: 750027 1 Tablet(s) PO QD 05/15/2013 05/25/2013 Inactive Wellbutrin XL 150 mg 24 hr tablet, extended release RxNorm: 263156 1 Tablet(s) PO QD 05/15/2013 05/14/2013 Inactive Kombiglyze XR 5 mg-500 mg tablet,extended release RxNorm: 10 00222 1 Tablet(s) PO QD 05/07/2013 05/15/2013 Inactive cefdinir 300 mg capsule RxNorm: 069443 2 Capsule(s) PO QD 04/23/2013 05/02/2013 Inactive AttnRPh: Saving apply/adjudicate RxGRP:S G20 RxBIN:[id number] RxPCN:HT ID#:[id number] Pepcid 20 mg tablet RxNorm: 094890 Tablet(s) PO TAKE 1 TABLET BY MOUTH TWICE DAILY. 04/17/2013 06/13/2016 Inactive Pepcid 20 mg tablet RxNorm: 188194 1 Tablet(s) PO BID 04/06/201305/24 Inactive Vytorin 10-80 10 mg-80 mg tablet RxNorm: 931540 1 Tablet(s) PO QD 0 02/19/2013 06/08/2013 Inactive TAKE 1 TABLET BY MOUTH DAILY loratadine 10 mg tablet RxNorm: 699887 1 Tablet(s) PO BID 01/23/2013 07/21/2013 Inactive Synthroid 150 mcg tablet RxNorm: 194652 1 Tablet(s) PO QD brand onl y 12/02/2012 06/08/2013 Inactive propranolol 60 mg tablet RxNorm: 272077 1 Tablet(s) PO QD 12/02/2012 06/08/2013 Inactive Trilipix 135 mg capsule,delayed release RxNorm: 761387 1 Capsul e(s) PO QD 12/02/2012 05/30/2013 Inactive may do day fill i f desired Pepcid 20 mg tablet RxNorm: 929895 1 Tablet(s) PO BID 11/27/201203/24 Inactive Effexor XR 150 mg capsule,extended release RxNorm: 146219 1 Cap kimi(s) PO QD 11/24/2012 05/14/2013 Inactive Vytorin 10-80 10 mg-80 mg tablet RxNorm: 945219 1 Tablet(s) PO QD 0 11/24/2012 2013 Inactive TAKE 1 TABLET BY MOUTH DAILY Vytorin 10-80 10 mg-80 mg tablet RxNorm: 554527 1 Tablet(s) PO QD 0 11/21/2012 11/24/2012 Inactive TAKE 1 TABLET BY MOUTH DAILY Effexor XR 150 mg capsule,extended release RxNorm: 394295 1 Cap kimi(s) PO QD 11/21/2012 11/24/2012 Inactive loratadine 10 mg tablet RxNorm: 6923145 1 Tablet(s) PO BID 11/12/19 13 01/23/2013 Inactive Vytorin 10-80 10 mg-80 mg tablet RxNorm: 261608 Tablet( s) PO TAKE 1 TABLET BY MOUTH ONCE DAILY. 10/15/2012 11/21/2012 Inactive Vytorin 10-80 10 mg-80 mg tablet RxNorm: 030484 1 Tablet(s) PO QD 0 10/15/2012 11/20/2012 Inactive TAKE 1 TABLET BY MOUTH DAILY Effexor XR 150 mg capsule,extended release RxNorm: 105627 1 Cap kimi(s) PO QD 10/15/2012 11/20/2012 Inactive Effexor XR 150 mg capsule,extended release RxNorm: 457650 Capsule(s) PO TAKE 1 CAPSULE BY MOUTH ONCE DAILY 10/15/2012 11/21/2012 Inactive azithromycin 250 mg tablet RxNorm: 435163 2 Tablet(s) PO QD 013 09/10/2012 Inactive Culturelle 10 billion cell capsule RxNorm: 881947 1 Cap kimi(s) PO BID for diarrhea maintenance 09/03/2012 10/02/2012 Inactive Medrol (Isaiah) 4 mg tablets in a dose pack RxNorm: 645962 Tablet(s) PO as directed 09/03/2012 07/11/2011 Active as directed Culturelle 10 billion cell capsule RxNorm: 651027 1 Capsule(s) PO BID 07/23/2012 08/21/2012 Inactive Vitamin D2 50,000 unit capsule RxNorm: 882744 Capsule(s ) PO TAKE 1 CAPSULE EVERY DAY SATURDAY THRU Saturday07/09/2012 08/20/2013 Inactive Vitamin D2 50,000 unit capsule RxNorm: 2744785 Capsule(s ) PO TAKE 1 CAPSULE EVERY DAY SATURDAY THRU Saturday07/07/2012 07/08/2012 Inactive Vitamin D2 50,000 unit capsule RxNorm: 7214025 Capsule(s ) PO TAKE 1 CAPSULE EVERY DAY SATURDAY THRU Saturday07/07/2012 07/06/2012 Inactive Vitamin D2 50,000 unit capsule RxNorm: 8635274 Capsule(s ) PO TAKE 1 CAPSULE EVERY DAY SATURDAY THRU Saturday06/27/2012 07/06/2012 Inactive Synthroid 150 mcg tablet RxNorm: 718435 1 Tablet(s) PO QD brand onl y 06/09/2012 12/02/2012 Inactive metformin 1,000 mg tablet RxNorm: 148967 1 Tablet(s) PO BID rep laces 500mg dose 05/20/2012 11/10/2012 Inactive propranolol 60 mg tablet RxNorm: 310808 1 Tablet(s) PO QD 04/23/2012 12/02/2012 Inactive Effexor XR 150 mg capsule,extended release RxNorm: 074838 1 Cap kimi(s) PO QD 04/04/2012 09/30/2012 Inactive Zyrtec 10 mg tablet RxNorm: 1738149 1 Tablet(s) PO QD 04/04/201203/24 Inactive Trilipix 135 mg capsule,delayed release RxNorm: 388745 1 Capsul e(s) PO QD 03/19/2012 12/02/2012 Inactive may do 90 day fill i f desired Vytorin 10-80 10 mg-80 mg tablet RxNorm: 768676 1 Tablet(s) PO QD 0 01/31/2012 07/28/2012 Inactive TAKE 1 TABLET BY MOUTH DAILY Voltaren 1 % topical gel RxNorm: 159552 TOP BID 01/25/2012 4 Inactive Apply to affected areas 2-3 times daily as needed. Synthroid 150 mcg tablet RxNorm: 668562 1 Tablet(s) PO QD brand onl y 01/02/2012 06/09/2012 Inactive metformin ER 1,000 mg 24 hr Tab Ctrl Rel RxNorm: 253374 1 Table t(s) PO QD 01/02/2012 05/19/2012 Inactive metformin ER 500 mg 24 hr Tab RxNorm: 262668 Tablet(s) PO 12/21/2011 01/01/2012 Inactive TAKE 1 TABLET BY MOUTH ONCE DAILY. Voltaren 1 % Topical Gel RxNorm: 490125 TOP BID 11/28/2011 2 Inactive Apply to affected areas 2-3 times daily as needed. propranolol 60 mg tablet RxNorm: 676073 1 Tablet(s) PO QD 10/17/2011 04/23/2012 Inactive Effexor XR 150 mg capsule,extended release RxNorm: 944779 1 Cap kimi(s) PO QD 09/13/2011 04/04/2012 Inactive Medrol (Isaiah) 4 mg tablets in a dose pack RxNorm: 756470 Tablet(s) PO as directed 09/04/2011 07/11/2011 Active as directed doxycycline hyclate 100 mg Tab RxNorm: 2349585 1 Tablet(s) PO BID 0 09/04/2011 09/13/2011 Inactive doxycycline monohydrate 100 mg Tab RxNorm: 4871138 1 Tablet(s) P O BID 07/25/2011 08/03/2011 Inactive prednisone 10 mg Tab RxNorm: 953773 1 Tablet(s) PO TID 07/25/201112/2011 Inactive Synthroid 150 mcg Tab RxNorm: 031953 1 Tablet(s) PO QD brand only 0 07/12/2011 01/02/2012 Inactive Vytorin 10-80 10 mg-80 mg Tab RxNorm: 795122 1 Tablet(s) PO QD 05/2601/31/2012 Inactive TAKE 1 TABLET BY MOUTH DAILY Vitamin D2 50,000 unit capsule RxNorm: 2355295 1 Capsule(s) PO Q D M-F 05/15/2011 06/26/2012 Inactive TAKE 1 CAPSULE BY MO [facility] DAILY SATURDAY THROUGH FRIDAYS Synthroid 150 mcg Tab RxNorm: 001086 1 Tablet(s) PO QD brand only 1 07/09/2010 07/11/2011 Inactive doxycycline monohydrate 100 mg Tab RxNorm: 3685829 1 Tablet(s) P O BID 04/25/2011 05/04/2011 Inactive Trilipix 135 mg capsule,delayed release RxNorm: 064576 1 Capsul e(s) PO QD 04/23/2011 03/19/2012 Inactive cefdinir 300 mg Cap RxNorm: 395840 1 Capsule(s) PO BID 04/04/2011 Inactive propranolol 60 mg Tab RxNorm: 393050 1 Tablet(s) PO QD 03/26/2011 Inactive Ultram 50 mg Tab RxNorm: 868754 1-2 Tablet(s) PO QID 03/22/201103/21 Active prn pain metformin ER 500 mg 24 hr Tab RxNorm: 996841 1 Tablet(s) PO QD 06/201006/21/2011 Inactive Synthroid 150 mcg Tab RxNorm: 778996 1 Tablet(s) PO QD 02/22/201112/2010 Inactive Vytorin 10-80 10 mg-80 mg Tab RxNorm: 570050 1 Tablet(s) PO QD 01/2303/13/2011 Inactive TAKE 1 TABLET BY MOUTH DAILY Trilipix 135 mg Cap RxNorm: 876386 1 Capsule(s) PO QD 01/10/201103/26 Inactive Effexor XR 150 mg 24 hr Cap RxNorm: 176324 1 Capsule(s) PO QD 01/0908/06/2011 Inactive Vitamin D 50,000 unit Cap RxNorm: 5812524 Capsule(s) PO 12/20/2010 Inactive TAKE 1 CAPSULE BY MOUTH DAILY Fridays Septra DS 800 mg-160 mg Tab RxNorm: 892869 1 Tablet(s) PO BID 12/0712/16/2010 Inactive mupirocin 2 % Ointment RxNorm: 082846 1 Application TOP BID Apply to affected area twice daily 12/07/2010 12/13/2010 Inactive Trilipix 135 mg Cap RxNorm: 191820 1 Capsule(s) PO QD 10/16/201003/26 Inactive Synthroid 150 mcg Tab RxNorm: 492014 1 Tablet(s) PO QD 10/09/201006/2010 Inactive metformin ER 500 mg 24 hr Tab RxNorm: 225616 1 Tablet(s) PO QD 09/2202/22/2011 Inactive Nexium 40 mg Cap RxNorm: 517555 1 Capsule(s) PO QD 10/05/2010 019 Inactive Vytorin 10-80 10 mg-80 mg Tab RxNorm: 882239 1 Tablet(s) PO QD 09/201002/12/2011 Inactive propranolol 60 mg Tab RxNorm: 720401 1 Tablet(s) PO QD 09/18/201008/2010 Inactive Synthroid 125 mcg Tab RxNorm: 881395 1 Tablet(s) PO QD 08/07/2010 Inactive Synthroid 125 mcg Tab RxNorm: 687681 1 Tablet(s) PO QD 08/07/2010 Inactive Voltaren 1 % Topical Gel RxNorm: 779368 TOP BID Apply t o affected areas 2-3 times daily as needed. 08/01/2010 11/28/2011 Inactive Voltaren 1 % Topical Gel RxNorm: 802356 TOP BID Apply t o affected areas 2-3 times daily as needed. 07/04/2010 07/31/2010 Inactive Advair Diskus 250 mcg-50 mcg/dose for Inhalation RxNorm: 135 9859 1 Puff(s) INH Q12H 07/04/2010 07/11/2011 Inactive Effexor XR 150 mg 24 hr Cap RxNorm: 267956 1 Capsule(s) PO QD 06/0801/03/2011 Inactive Synthroid 100 mcg Tab RxNorm: 835366 1 Tablet(s) PO QD 06/06/2010 Inactive Vitamin D 50,000 unit Cap RxNorm: 4711163 1 Capsule(s) PO QD M-F 05/15/2011 Inactive Synthroid 150 mcg Tab RxNorm: 079691 1 Tablet(s) PO 05/25/20102010 Inactive Vytorin 10-80 10 mg-80 mg Tab RxNorm: 240894 1 Tablet(s) PO QD 04/2509/25/2010 Inactive Trilipix 135 mg Cap RxNorm: 272839 1 Capsule(s) PO QD 04/17/201009/23 Inactive propranolol 60 mg Tab RxNorm: 372852 1 Tablet(s) PO QD 01/09/2010 Inactive Advair Diskus 250 mcg-50 mcg/dose for Inhalation RxNorm: 135 9859 1 Puff(s) INH Q12H 12/26/2009 07/04/2010 Inactive Advair Diskus 250 mcg-50 mcg/Dose for Inhalation RxNorm: 135 9859 1 Puff(s) INH Q12H 11/26/2009 12/25/2009 Inactive Synthroid 200 mcg Tab RxNorm: 852543 1 Tablet(s) PO QD 11/24/2009 Inactive Effexor XR 150 mg 24 hr Cap RxNorm: 153093 1 Capsule(s) PO QD 10/2705/24/2010 Inactive Lisinopril 10 mg Tab RxNorm: 974553 1 Tablet(s) PO QD 10/17/200909/23 Inactive Propranolol 60 mg Tab RxNorm: 412111 1 Tablet(s) PO QD 10/17/2009 Inactive Septra DS 160 mg-800 mg Tab RxNorm: 152964 1 Tablet(s) PO BID 10/0410/08/2009 Inactive Mupirocin 2 % Ointment RxNorm: 131418 TOP Q6-8H 10/04/2009 10/10/2009 Inactive Voltaren 1 % Topical Gel RxNorm: 729506 TOP BID Apply t o affected areas 2-3 times daily as needed. 09/21/2009 03/19/2010 Inactive Trilipix 135 mg Cap RxNorm: 193373 1 Capsule(s) PO QD 09/20/200902/23 Inactive Nexium 40 mg Cap RxNorm: 062807 1 Capsule(s) PO QD 09/19/2009 010 Inactive Tylenol Arthritis 650 mg Tab RxNorm: 7776279 2 Tablet(s) PO BID 09/21 Active Vitamin D3 5,000 unit tablet RxNorm: 879390 1 Tablet(s) PO QD 019 Active Synthroid 150 mcg tablet RxNorm: 877453 1 Tablet(s) PO QD 01/12/2015 01/11/2015 Inactive Synthroid 150 mcg tablet RxNorm: 332382 1 Tablet(s) PO Saturday and Saturday01/16/2018 01/15/2018 Inactive Vitamin D 2,000 unit Cap RxNorm: 1 Capsule(s) PO QD 01/30/201002/2010 Inactive Flexeril 5 mg tablet RxNorm: 064918 1/2 to 1 Tablet(s) PO TID as needed for muscle spasm 06/10/2017 06/09/2017 Inactive Medrol (Isaiah) 4 mg Tabs in a Dose Pack RxNorm: 365723 Tablet(s) PO 0 09/04/2011 07/11/2011 Inactive as directed fenofibrate micronized 134 mg capsule RxNorm: 125733 1 Capsule( s) PO QD 06/03/2017 06/02/2017 Inactive Vitamin D2 50,000 unit capsule RxNorm: 731938 Capsule(s ) PO Take 1 capsule by mouth twice weekly 12/02/2013 12/01/2013 Inactive prednisone 20 mg tablet RxNorm: 149963 1 Tablet(s) PO BID 03/30/2014 03/29/2014 Inactive AttnRPh: Saving apply/adjudicate RxGRP:S G20 RxBIN:[id number] RxPCN:HT ID#:[id number]: Saving apply/adjudicate RxGRP:SG20 RxBIN:[id number] RxPCN:HT ID#:[id number] Soma 350 mg tablet RxNorm: 227441 1 Tablet(s) PO TID prn spasm 01/2310/08/2010 Inactive Lancets,Ultra Thin RxNorm: Miscellaneous Use to test blood sugar daily and as needed (Dx: E11.65) 02/28/2018 02/27/2018 Inactive pantoprazole 40 mg tablet,delayed release RxNorm: 419871 1 Tabl et(s) PO QD 08/21/2017 08/20/2017 Inactive Janumet XR 100 mg-1,000 mg tablet,extended release RxNorm: 1 926755 2 Tablet(s) PO QD 01/06/2014 01/05/2014 Inactive Contour Meter RxNorm: miscellaneous 02/27/2018 02/26/2018 Inactive Synthroid 200 mcg Tab RxNorm: 417458 1 Tablet(s) PO QD 11/24/200907/2009 Inactive Kombiglyze XR 5 mg-500 mg tablet,extended release RxNorm: 10 29106 1 Tablet(s) PO QD 05/07/2013 05/06/2013 Inactive Zithromax Z-Isaiah 250 mg tablet RxNorm: 036479 Tablet(s) PO as di rected 05/14/2013 05/13/2013 Inactive AttnRPh: Saving appl y/adjudicate RxGRP:SG20 RxBIN:[id number] RxPCN:HT ID#:[id number] Fish Oil 1,000 mg capsule RxNorm: 3 Capsule(s) PO QD 04/04/2017 Inactive Lasix Oral RxNorm: Oral 03/30/2014 03/29/2014 Inactive loratadine 10 mg tablet RxNorm: 660914 1 Tablet(s) PO QD 08/20/2017 0 08/19/2017 Inactive Vitamin D 5,000 unit Tab RxNorm: 1 Tablet(s) PO twice a week 1 08/07/2009 06/05/2010 Inactive permethrin 5 % Topical Cream RxNorm: 970087 TOP Use as directed 02/03/2013 Inactive Gabapentin 100 mg Tab RxNorm: 139898 1 Tablet(s) PO BID 04/12/2010 Inactive Voltaren 1 % topical gel RxNorm: 470235 TOP as needed 06/23/201805/26 Inactive Gabapentin 300 mg Cap RxNorm: 090133 1 Capsule(s) PO BID 07/12/2011 0 07/11/2011 Inactive Contour Test Strips RxNorm: Miscellaneous Test blood sug ar daily (Dx: E11.65) 02/28/2018 02/27/2018 Inactive Promethazine 25 mg Tab RxNorm: 132698 1 Tablet(s) PO Q6 -8H As needed for nausea and vomiting. 10/09/2010 10/08/2010 Inactive propranolol 20 mg tablet RxNorm: 766062 1 Tablet(s) PO BID 03/17/20 18 03/16/2018 Inactive Vitamin D 50,000 unit Cap RxNorm: 5429574 Capsule(s) PO 2 weekly 06/05/2010 Inactive Synthroid 175 mcg Tab RxNorm: 428712 1 Tablet(s) PO QD 07/12/2011 Inactive triamcinolone acetonide 0.1 % Ointment RxNorm: 7321109 T OP TID apply three times a day (sparingly) as needed for itching 04/04/2017 04/03/2017 Inactive Ultram 50 mg Tab RxNorm: 427104 1-2 Tablet(s) PO QID prn pain 03/2203/22/2011 Inactive Topamax 100 mg Tab RxNorm: 635106 1 Tablet(s) PO BID 10/04/200910/03 Inactive Vitamin D3 1000 units Capsule RxNorm: 3 Capsule(s) PO QD 0 06/05/2010 Inactive Singulair 10 mg tablet RxNorm: 186511 1 Tablet(s) PO QD 06/23/2018 Inactive Medication Administered No Medication Administered data Immunizations Vaccine Codes Dose Date Status Influenza CVX: 135 0.5 04/05/2022 Complete Influenza CVX: 135 0.5 03/29/2021 Complete Covid-19 CVX: 207 09/08/2020 Covid-19 CVX: 207 08/12/2020 Influenza CVX: 135 0.5 04/15/2019 Complete Influenza CVX: 135 0.5 04/15/2019 Complete Influenza CVX: 135 0.5 04/04/2017 Complete Pneumococcal CVX: 33 0.5 04/04/2017 Complete Influenza CVX: 135 0.5 05/01/2016 Complete Influenza CVX: 135 0.5 ml 03/28/2015 Pneumococcal CVX: 133 0.5 ml 02/08/2015 Results Observation Observation Code Item Item Code Result Date S ervice Location SARS-CoV2 3644821 SARS-CoV2 PCR Detected 07/08/2021 Unkno wn GFR CALC 3102213 GFR Non Afr Amr >60 mL/min 01/26/2019 Un known GFR CALC 1536742 GFR Afr Amr >60 mL/min 01/26/2019 Unknow n COMPLETE BLOOD COUNT 6859138 WBC 7.0 10e9/L 01/27/20 19 Unknown COMPLETE BLOOD COUNT [id number] RBC 4.52 10e12/L 2018 Unknown COMPLETE BLOOD COUNT 1159772 HEMOGLOBIN 14.0 g/dL 01/27/20 19 Unknown COMPLETE BLOOD COUNT 7180951 HEMATOCRIT 42.6 % 01/27/20 19 Unknown COMPLETE BLOOD COUNT [id number] MCV 94.2 fL 9 Unknown COMPLETE BLOOD COUNT 3598572 MCH 31.0 pg 9 Unknown COMPLETE BLOOD COUNT 6007682 MCHC 32.9 g/dL 9 Unknown COMPLETE BLOOD COUNT 2442693 PLATELET COUNT 272 10e9/L 10/2018 Unknown COMPLETE BLOOD COUNT 3750874 Mean Plt Volume 10.4 fL 10/2018 Unknown COMPLETE BLOOD COUNT 1711000 Neut Auto 53.9 % 9 Unknown COMPLETE BLOOD COUNT [id number] Lymph Auto 33.8 % 01/27/20 19 Unknown COMPLETE BLOOD COUNT 5860175 [place] Auto 9.1 % 9 Unknown COMPLETE BLOOD COUNT 0354750 RDW 13.2 % 9 Unknown COMPLETE BLOOD COUNT 5279830 Eos Auto 2.3 % 9 Unknown COMPLETE BLOOD COUNT 7195179 Baso Auto 0.9 % 9 Unknown COMPLETE BLOOD COUNT 3586963 Neutrophil Abs 3.77 10e9/L Unknown COMPLETE BLOOD COUNT 3001509 Lymphocyte Abs 2.37 10e9/L Unknown COMPLETE BLOOD COUNT 2044991 Monocyte Abs 0.64 10e9/L 10/2018 Unknown COMPLETE BLOOD COUNT 5956354 Eosinophil Abs 0.16 10e9/L Unknown COMPLETE BLOOD COUNT 4624659 RDW-SD 44.2 fL 9 Unknown COMPLETE BLOOD COUNT 5237842 Basophil Abs 0.06 10e9/L 10/2018 Unknown COMPREHENSIVE METABOLIC 10927 AST 15 U/L 2018 Unknown COMPREHENSIVE METABOLIC 46919 ALT 18 U/L 2018 Unknown COMPREHENSIVE METABOLIC 46066 BUN 10 mg/dL 2018 Unknown COMPREHENSIVE METABOLIC 92234 ALBUMIN 4.1 g/dL 2018 Unknown COMPREHENSIVE METABOLIC 48421 CHLORIDE 100 mmol/L 01/26 Unknown COMPREHENSIVE METABOLIC 95282 Bili Total 0.4 mg/dL 01/26 Unknown COMPREHENSIVE METABOLIC 26470 ALK PHOS 57 U/L 2018 Unknown COMPREHENSIVE METABOLIC 42674 SODIUM 136 mmol/L 01/26 Unknown COMPREHENSIVE METABOLIC 23305 CREATININE 0.71 mg/dL 10/2018 Unknown COMPREHENSIVE METABOLIC 88195 CALCIUM 9.3 mg/dL 2018 Unknown COMPREHENSIVE METABOLIC 45816 POTASSIUM 4.4 mmol/L 01/26 Unknown COMPREHENSIVE METABOLIC 41288 Total Protein 6.7 g/dL Unknown COMPREHENSIVE METABOLIC 22884 Glucose 88 mg/dL 2018 Unknown COMPREHENSIVE METABOLIC 75825 Bicarbonate 27 mmol/L 10/2018 Unknown COMPREHENSIVE METABOLIC 70941 AGAP 9 mmol/L 2018 Unknown Procedures Procedure Codes Date URINALYSIS NONAUTO W/O SCOPE CPT-4: 96954 09/05/2022 RML URINE CULTURE/ COLONY COUNT CPT-4: 01144 09/06/19 23 RML URINE CULTURE/ COLONY COUNT CPT-4: 88169 06/29/19 23 THER/PROPH/DIAG INJ SC/IM CPT-4: 20895 04/18/2022 KETOROLAC TROMETHAMINE INJ CPT-4: J1885 04/18/2022 FLU 64 + VACC AIIV4 NO PRSRV 0.5ML IM CPT-4: 39281 ADMIN INFLUENZA VIRUS VAC CPT-4: G0008 04/05/2022 PPPS, subseq visit CPT-4: G0439 02/06/2022 DEXAMETHASONE SODIUM PHOS CPT-4: J1100 11/09/2021 THER/PROPH/DIAG INJ SC/IM CPT-4: 43468 11/09/2021 TRIAMCINOLONE ACET INJ NOS CPT-4: J3301 11/09/2021 CEFTRIAXONE SODIUM INJECTION CPT-4: J0696 10/30/2021 THER/PROPH/DIAG INJ SC/IM CPT-4: 64612 10/30/2021 INFLUENZA ASSAY W/OPTIC CPT-4: 49161 10/30/2021 THER/PROPH/DIAG INJ SC/IM CPT-4: 97966 09/05/2021 TRIAMCINOLONE ACET INJ NOS CPT-4: J3301 09/05/2021 INFLUENZA ASSAY W/OPTIC CPT-4: 93434 07/04/2021 SARS-CoV2 CPT-4: 3987263 07/04/2021 FLU VACC PRSV FREE INC ANTIG 65 AND OLDER CPT-4: 46019 03/29/2021 FLU VACC PRSV FREE INC ANTIG 65 AND OLDER CPT-4: 49009 03/29/2021 ADMIN INFLUENZA VIRUS VAC CPT-4: G0008 03/29/2021 DRAINAGE OF SKIN ABSCESS CPT-4: 12350 02/08/2021 PPPS, subseq visit CPT-4: G0439 01/03/2021 OCCULT BLOOD FECES CPT-4: 21139 07/13/2020 RML URINE CULTURE/ COLONY COUNT CPT-4: 62500 05/17/20 20 URINALYSIS NONAUTO W/O SCOPE CPT-4: 63648 05/17/2020 CEFTRIAXONE SODIUM INJECTION CPT-4: J0696 03/07/2020 THER/PROPH/DIAG INJ SC/IM CPT-4: 93067 03/07/2020 THER/PROPH/DIAG INJ SC/IM CPT-4: 38984 03/07/2020 METHYLPREDNISOLONE INJECTION CPT-4: J2930 03/07/2020 PPPS, subseq visit CPT-4: G0439 12/21/2019 RML URINE CULTURE/ COLONY COUNT CPT-4: 77954 09/11/19 20 CEFTRIAXONE SODIUM INJECTION CPT-4: J0696 09/08/2019 THER/PROPH/DIAG INJ SC/IM CPT-4: 70396 09/08/2019 THER/PROPH/DIAG INJ SC/IM CPT-4: 91194 09/07/2019 CEFTRIAXONE SODIUM INJECTION CPT-4: J0696 09/07/2019 THER/PROPH/DIAG INJ SC/IM CPT-4: 98089 09/07/2019 URINALYSIS NONAUTO W/O SCOPE CPT-4: 28118 09/02/2019 RML URINE CULTURE/ COLONY COUNT CPT-4: 41708 09/02/19 20 FLU VACC PRSV FREE INC ANTIG 65 AND OLDER CPT-4: 21031 04/15/2019 URINALYSIS NONAUTO W/O SCOPE CPT-4: 15400 04/15/2019 RML URINE CULTURE/ COLONY COUNT CPT-4: 42959 04/15/20 19 ADMIN INFLUENZA VIRUS VAC CPT-4: G0008 04/15/2019 FLU VACC PRSV FREE INC ANTIG 65 AND OLDER CPT-4: 07925 04/15/2019 THER/PROPH/DIAG INJ SC/IM CPT-4: 77015 04/07/2019 TRIAMCINOLONE ACET INJ NOS CPT-4: J3301 04/07/2019 DEXAMETHASONE SODIUM PHOS CPT-4: J1100 04/07/2019 URINALYSIS NONAUTO W/O SCOPE CPT-4: 98398 03/18/2019 RML URINE CULTURE/ COLONY COUNT CPT-4: 21591 03/18/20 19 ROUTINE VENIPUNCTURE CPT-4: 42167 01/26/2019 RML COMPREHEN METABOLIC PANEL CPT-4: 70262 01/26/2019 RML COMPLETE CBC W/AUTO DIFF WBC CPT-4: 62984 019 RML URINE CULTURE/ COLONY COUNT CPT-4: 10293 01/27/20 19 URINALYSIS NONAUTO W/O SCOPE CPT-4: 49088 01/26/2019 THER/PROPH/DIAG INJ SC/IM CPT-4: 60697 01/08/2019 TRIAMCINOLONE ACET INJ NOS CPT-4: J3301 01/08/2019 THER/PROPH/DIAG INJ SC/IM CPT-4: 43250 01/06/2019 METHYLPREDNISOLONE INJECTION CPT-4: J2930 01/06/2019 AIRWAY INHALATION TREATMENT CPT-4: 90686 01/06/2019 RML URINE CULTURE/ COLONY COUNT CPT-4: 05944 01/07/20 19 PPPS, subseq visit CPT-4: G0439 12/11/2018 URINALYSIS NONAUTO W/O SCOPE CPT-4: 53584 12/11/2018 RML URINE CULTURE/ COLONY COUNT CPT-4: 98827 12/12/19 19 CULTURE OTHR SPECIMN AEROBIC CPT-4: 08565 12/11/2018 OCCULT BLOOD FECES CPT-4: 17939 12/11/2018 THER/PROPH/DIAG INJ SC/IM CPT-4: 47664 10/07/2018 TRIAMCINOLONE ACET INJ NOS CPT-4: J3301 10/07/2018 DEXAMETHASONE SODIUM PHOS CPT-4: J1100 10/07/2018 THER/PROPH/DIAG INJ SC/IM CPT-4: 32371 10/16/2017 TRIAMCINOLONE ACET INJ NOS CPT-4: J3301 10/16/2017 THER/PROPH/DIAG INJ SC/IM CPT-4: 83235 10/16/2017 KETOROLAC TROMETHAMINE INJ CPT-4: J1885 10/16/2017 INFLUENZA ASSAY W/OPTIC CPT-4: 76063 07/25/2017 FLU VACC PRSV FREE INC ANTIG 65 AND OLDER CPT-4: 27222 04/04/2017 PNEUMOCOCCAL VACC 22 DANAY IM CPT-4: 36014 04/04/2017 PPPS, subseq visit CPT-4: G0439 04/04/2017 ADMIN INFLUENZA VIRUS VAC CPT-4: G0008 04/04/2017 ADMIN PNEUMOCOCCAL VACCINE CPT-4: G0009 04/04/2017 URINALYSIS NONAUTO W/O SCOPE CPT-4: 30824 06/05/2016 FLU VACC PRSV FREE INC ANTIG 65 AND OLDER CPT-4: 45364 05/01/2016 ADMIN INFLUENZA VIRUS VAC CPT-4: G0008 05/01/2016 URINALYSIS NONAUTO W/O SCOPE CPT-4: 10627 11/08/2015 URINALYSIS NONAUTO W/O SCOPE CPT-4: 47357 03/28/2015 ADMIN INFLUENZA VIRUS VAC CPT-4: G0008 03/28/2015 FLU VACC PRSV FREE INC ANTIG 65 AND OLDER CPT-4: 54359 03/28/2015 PRESCRIP TRANSMIT VIA ERX SY CPT-4: G8553 03/28/2015 PNEUMOCOCCAL VACC 13 DANAY IM CPT-4: 92487 02/08/2015 ADMIN PNEUMOCOCCAL VACCINE CPT-4: G0009 02/08/2015 PRESCRIP TRANSMIT VIA ERX SY CPT-4: G8553 02/08/2015 RML URINE CULTURE/ COLONY COUNT CPT-4: 86744 01/12/20 15 URINALYSIS NONAUTO W/O SCOPE CPT-4: 58170 01/11/2015 PRESCRIP TRANSMIT VIA ERX SY CPT-4: G8553 01/11/2015 PRESCRIP TRANSMIT VIA ERX SY CPT-4: G8553 11/24/2014 URINALYSIS NONAUTO W/O SCOPE CPT-4: 81976 10/27/2014 RML URINE CULTURE/ COLONY COUNT CPT-4: 17177 10/28/19 15 PRESCRIP TRANSMIT VIA ERX SY CPT-4: G8553 10/27/2014 CEFTRIAXONE SODIUM INJECTION CPT-4: J0696 09/23/2014 THER/PROPH/DIAG INJ SC/IM CPT-4: 48450 09/23/2014 URINALYSIS NONAUTO W/O SCOPE CPT-4: 28284 09/23/2014 RML URINE CULTURE/ COLONY COUNT CPT-4: 79274 09/24/19 15 PRESCRIP TRANSMIT VIA ERX SY CPT-4: G8553 09/23/2014 URINALYSIS NONAUTO W/O SCOPE CPT-4: 57414 03/30/2014 RML URINE CULTURE/ COLONY COUNT CPT-4: 32730 03/30/20 14 PRESCRIP TRANSMIT VIA ERX SY CPT-4: G8553 03/30/2014 PRESCRIP TRANSMIT VIA ERX SY CPT-4: G8553 11/24/2013 PRESCRIP TRANSMIT VIA ERX SY CPT-4: G8553 06/29/2013 PRESCRIP TRANSMIT VIA ERX SY CPT-4: G8553 05/26/2013 PRESCRIP TRANSMIT VIA ERX SY CPT-4: G8553 04/23/2013 THER/PROPH/DIAG INJ SC/IM CPT-4: 45200 03/05/2013 KETOROLAC TROMETHAMINE INJ CPT-4: J1885 03/05/2013 PRESCRIP TRANSMIT VIA ERX SY CPT-4: G8553 11/27/2012 PRESCRIP TRANSMIT VIA ERX SY CPT-4: G8553 11/11/2012 PRESCRIP TRANSMIT VIA ERX SY CPT-4: G8553 09/03/2012 PRESCRIP TRANSMIT VIA ERX SY CPT-4: G8553 07/23/2012 PRESCRIP TRANSMIT VIA ERX SY CPT-4: G8553 05/20/2012 PRESCRIP TRANSMIT VIA ERX SY CPT-4: G8553 04/04/2012 DESTRUCT PREMALG LESION (Cryosurgery) CPT-4: 24158 PRESCRIP TRANSMIT VIA ERX SY CPT-4: G8553 01/02/2012 PRESCRIP TRANSMIT VIA ERX SY CPT-4: G8553 09/04/2011 URINALYSIS NONAUTO W/O SCOPE CPT-4: 48121 07/31/2011 PRESCRIP TRANSMIT VIA ERX SY CPT-4: G8553 07/12/2011 PRESCRIP TRANSMIT VIA ERX SY CPT-4: G8553 05/09/2011 THER/PROPH/DIAG INJ SC/IM CPT-4: 34630 05/02/2011 KETOROLAC TROMETHAMINE INJ CPT-4: J1885 05/02/2011 PRESCRIP TRANSMIT VIA ERX SY CPT-4: G8553 04/25/2011 CUR TOBACCO NON-USER CPT-4: G8457 04/04/2011 PRESCRIP TRANSMIT VIA ERX SY CPT-4: G8553 04/04/2011 DRAIN/INJECT JOINT/BURSA CPT-4: 45257 03/01/2011 METHYLPREDNISOLONE 40 MG INJ CPT-4: J1030 03/01/2011 TRIAMCINOLONE ACET INJ NOS CPT-4: J3301 03/01/2011 DRAIN/INJECT JOINT/BURSA CPT-4: 43225 01/04/2011 METHYLPREDNISOLONE 40 MG INJ CPT-4: J1030 01/04/2011 TRIAMCINOLONE ACET INJ NOS CPT-4: J3301 01/04/2011 PRESCRIP TRANSMIT VIA ERX SY CPT-4: G8553 12/07/2010 PRESCRIP TRANSMIT VIA ERX SY CPT-4: G8553 10/09/2010 PRESCRIP TRANSMIT VIA ERX SY CPT-4: G8553 06/06/2010 DRAIN/INJECT JOINT/BURSA CPT-4: 63912 04/12/2010 TRIAMCINOLONE ACET INJ NOS CPT-4: J3301 04/12/2010 METHYLPREDNISOLONE 80 MG INJ CPT-4: J1040 04/12/2010 PRESCRIP TRANSMIT VIA ERX SY CPT-4: G8553 03/20/2010 THER/PROPH/DIAG INJ SC/IM CPT-4: 39142 01/30/2010 KETOROLAC TROMETHAMINE INJ CPT-4: J1885 01/30/2010 PRESCRIP TRANSMIT VIA ERX SY CPT-4: G8553 01/30/2010 DRAIN/INJECT JOINT/BURSA CPT-4: 45476 10/26/2009 TRIAMCINOLONE ACET INJ NOS CPT-4: J3301 10/26/2009 METHYLPREDNISOLONE 80 MG INJ CPT-4: J1040 10/26/2009 DRAINAGE OF SKIN ABSCESS CPT-4: 95898 10/04/2009 Vital Signs Date Vital 09/05/2022 Blood Pressure 1: 124/78 Code: 8480-6 Heart Rate 1: 65 bpm Respiratory Rate: 20 bpm SpO2: 97% Temperature: 36.7 (C) / 98.0 (F) We ight: 224 lbs Code: 03355-1 08/30/2022 Blood Pressure 1: 124/74 Code: 8480-6 Heart Rate 1: 74 bpm Respiratory Rate: 20 bpm SpO2: 96% Temperature: 36.3 (C) / 97.3 (F) We ight: 224 lbs Code: 97991-6 08/07/2022 Blood Pressure 1: 126/74 Code: 8480-6 Heart Rate 1: 73 bpm Respiratory Rate: 20 bpm SpO2: 97% Temperature: 36.2 (C) / 97.1 (F) We ight: 222 lbs Code: 15958-8 06/29/2022 Blood Pressure 1: 132/73 Code: 8480-6 BMI: 36.7 Code: 39502-6 Heart Rate 1: 74 bpm Height: 5'6" Code: 8302-2 SpO2: 96% Temperature: 3 6.4 (C) / 97.6 (F) Weight: 226 lbs Code: 88187-3 05/28/2022 Blood Pressure 1: 129/78 Code: 8480-6 BMI: 37.7 Code: 28785-6 Heart Rate 1: 72 bpm Height: 5'6" Code: 8302-2 SpO2: 95% Temperature: 3 6.2 (C) / 97.1 (F) Weight: 232 lbs Code: 87415-1 05/10/2022 Blood Pressure 1: 133/75 Code: 8480-6 BMI: 38.3 Code: 14834-3 Heart Rate 1: 68 bpm Height: 5'6" Code: 8302-2 SpO2: 98% Temperature: 3 6.2 (C) / 97.1 (F) Weight: 236 lbs Code: 41458-8 04/18/2022 Blood Pressure 1: 118/70 Code: 8480-6 Heart Rate 1: 86 bpm Respiratory Rate: 20 bpm SpO2: 96% Temperature: 36.6 (C) / 97.8 (F) We ight: 238 lbs Code: 18940-9 02/15/2022 Blood Pressure 1: 120/82 Code: 8480-6 Heart Rate 1: 88 bpm Respiratory Rate: 20 bpm SpO2: 98% Temperature: 36.1 (C) / 97.0 (F) We ight: 237 lbs Code: 11162-8 02/06/2022 Blood Pressure 1: 124/80 Code: 8480-6 BMI: 39.4 Code: 70046-4 Heart Rate 1: 76 bpm Height: 5'6" Code: 8302-2 Respiratory Rate: 20 bpm SpO2: 98% Temperature: 36.6 (C) / 97.9 (F) Weight: 242 lbs Code: 24237-6 02/01/2022 Blood Pressure 1: 144/100 Code: 8480-6 Heart Rat e 1: 108 bpm Respiratory Rate: 22 bpm SpO2: 96% Temperature: 36.4 (C) / 97.5 (F) 11/29/2021 Blood Pressure 1: 128/80 Code: 8480-6 Heart Rate 1: 56 bpm Respiratory Rate: 20 bpm SpO2: 97% Temperature: 36.7 (C) / 98.1 (F) We ight: 242 lbs Code: 32052-4 11/22/2021 Blood Pressure 1: 118/80 Code: 8480-6 Heart Rate 1: 84 bpm Respiratory Rate: 20 bpm SpO2: 99% Temperature: 36.3 (C) / 97.4 (F) 11/21/2021 Blood Pressure 1: 132/80 Code: 8480-6 Heart Rate 1: 98 bpm Respiratory Rate: 20 bpm SpO2: 99% Weight: 238 lbs Code: 92152 -7 11/09/2021 Blood Pressure 1: 136/86 Code: 8480-6 Heart Rate 1: 68 bpm Respiratory Rate: 20 bpm SpO2: 95% Temperature: 36.4 (C) / 97.5 (F) We ight: 244 lbs Code: 88520-4 10/31/2021 Blood Pressure 1: 128/80 Code: 8480-6 Heart Rate 1: 80 bpm Respiratory Rate: 28 bpm SpO2: 93% Temperature: 38.0 (C) / 100. 4 (F) 10/30/2021 Blood Pressure 1: 136/82 Code: 8480-6 Heart Rate 1: 120 bpm Respiratory Rate: 24 bpm SpO2: 95% Temperature: 38.0 (C) / 100. 4 (F) 09/05/2021 Blood Pressure 1: 118/84 Code: 8480-6 BMI: 38.5 Code: 89801-4 Heart Rate 1: 72 bpm Height: 5'7" Code: 8302-2 Respiratory Rate: 20 bpm SpO2: 95% Temperature: 36.3 (C) / 97.4 (F) Weight: 246 lbs Code: 72936-6 08/24/2021 Blood Pressure 1: 132/84 Code: 8480-6 Heart Rate 1: 76 bpm Respiratory Rate: 19 bpm SpO2: 98% Temperature: 36.7 (C) / 98.1 (F) We ight: Code: 49901-5 03/01/2021 Blood Pressure 1: 90/52 Code: 8480-6 Heart Rate 1: 66 bpm Respiratory Rate: 22 bpm SpO2: 97% 02/08/2021 Blood Pressure 1: 132/75 Code: 8480-6 Heart Rate 1: 74 bpm Respiratory Rate: 18 bpm SpO2: 98% Temperature: 36.3 (C) / 97.3 (F) We ight: 247 lbs Code: 09266-7 01/19/2021 Blood Pressure 1: 126/76 Code: 8480-6 Heart Rate 1: 76 bpm Respiratory Rate: 20 bpm SpO2: 98% Temperature: 37.1 (C) / 98.8 (F) We ight: 244 lbs Code: 99719-5 01/03/2021 Blood Pressure 1: 124/64 Code: 8480-6 BMI: 38.5 Code: 85432-6 Heart Rate 1: 76 bpm Height: 5'7" Code: 8302-2 Respiratory Rate: 20 bpm SpO2: 96% Temperature: 36.4 (C) / 97.6 (F) Weight: 246 lbs Code: 10333-3 11/29/2020 Blood Pressure 1: 119/68 Code: 8480-6 Heart Rate 1: 73 bpm Respiratory Rate: 20 bpm SpO2: 95% Temperature: 36.1 (C) / 96.9 (F) We ight: 245 lbs Code: 83959-8 09/29/2020 Blood Pressure 1: 136/79 Code: 8480-6 Heart Rate 1: 67 bpm Respiratory Rate: 15 bpm SpO2: 98% Temperature: 36.2 (C) / 97.1 (F) We ight: 237 lbs Code: 36952-3 09/19/2020 Blood Pressure 1: 135/82 Code: 8480-6 Heart Rate 1: 76 bpm Respiratory Rate: 17 bpm SpO2: 96% Temperature: 36.6 (C) / 97.8 (F) We ight: 238 lbs Code: 58433-4 08/10/2020 Blood Pressure 1: 126/82 Code: 8480-6 Heart Rate 1: 60 bpm Respiratory Rate: 20 bpm SpO2: 96% Temperature: 36.3 (C) / 97.3 (F) We ight: 238 lbs Code: 51958-9 08/01/2020 Temperature: 36.6 (C) / 97.8 (F) 07/13/2020 Blood Pressure 1: 132/80 Code: 8480-6 Heart Rate 1: 76 bpm Respiratory Rate: 20 bpm SpO2: 97% Temperature: 36.2 (C) / 97.2 (F) We ight: 228 lbs Code: 99412-4 07/05/2020 Temperature: 35.9 (C) / 96.7 (F) 06/22/2020 Blood Pressure 1: 134/82 Code: 8480-6 Heart Rate 1: 60 bpm Respiratory Rate: 20 bpm SpO2: 96% Temperature: 36.4 (C) / 97.6 (F) We ight: 235 lbs Code: 88988-6 05/17/2020 Blood Pressure 1: 141/72 Code: 8480-6 Heart Rate 1: 78 bpm Respiratory Rate: 16 bpm SpO2: 98% Temperature: 36.3 (C) / 97.3 (F) We ight: 232 lbs Code: 50400-4 03/14/2020 Blood Pressure 1: 126/92 Code: 8480-6 Heart Rate 1: 72 bpm Respiratory Rate: 22 bpm SpO2: 96% Temperature: 36.3 (C) / 97.4 (F) We ight: 225 lbs Code: 60336-2 03/07/2020 Blood Pressure 1: 124/86 Code: 8480-6 Heart Rate 1: 72 bpm Respiratory Rate: 24 bpm SpO2: 93% Temperature: 36.2 (C) / 97.1 (F) We ight: 227 lbs Code: 90805-5 12/21/2019 Blood Pressure 1: 114/72 Code: 8480-6 BMI: 36.2 Code: 27234-8 Heart Rate 1: 60 bpm Height: 5'7" Code: 8302-2 Respiratory Rate: 20 bpm SpO2: 97% Temperature: 36.7 (C) / 98.1 (F) Weight: 231 lbs Code: 83296-9 09/02/2019 Blood Pressure 1: 138/85 Code: 8480-6 Heart Rate 1: 76 bpm Respiratory Rate: 20 bpm SpO2: 96% Temperature: 36.3 (C) / 97.3 (F) We ight: 226 lbs Code: 05978-1 07/09/2019 Blood Pressure 1: 123/63 Code: 8480-6 BMI: 34.9 Code: 41354-8 Heart Rate 1: 64 bpm Height: 5'7" Code: 8302-2 Respiratory Rate: 17 bpm SpO2: 97% Temperature: 37.0 (C) / 98.6 (F) Weight: 223 lbs Code: 92298-0 04/15/2019 Blood Pressure 1: 110/82 Code: 8480-6 Heart Rate 1: 66 bpm SpO2: 98% Temperature: 36.1 (C) / 96.9 (F) Weight: 223 lbs Code: 22594-0 04/07/2019 Blood Pressure 1: 132/80 Code: 8480-6 Heart Rate 1: 68 bpm Temperature: 36.9 (C) / 98.4 (F) Weight: 222 lbs Code: 09924-2 03/25/2019 Blood Pressure 1: 108/70 Code: 8480-6 Heart Rate 1: 64 bpm Respiratory Rate: 20 bpm SpO2: 96% Temperature: 36.2 (C) / 97.2 (F) We ight: 221 lbs Code: 10337-1 03/18/2019 Blood Pressure 1: 138/82 Code: 8480-6 Heart Rate 1: 74 bpm SpO2: 99% Temperature: 36.1 (C) / 96.9 (F) Weight: 223 lbs Code: 62971-2 01/26/2019 Blood Pressure 1: 138/90 Code: 8480-6 Heart Rate 1: 68 bpm SpO2: 96% Temperature: 35.9 (C) / 96.7 (F) Weight: 227 lbs Code: 57774-9 01/08/2019 Blood Pressure 1: 134/78 Code: 8480-6 BMI: 36.8 Code: 67487-3 Heart Rate 1: 76 bpm Height: 5'7" Code: 8302-2 SpO2: 93% Temperature: 3 6.4 (C) / 97.6 (F) Weight: 235 lbs Code: 86822-7 01/06/2019 Blood Pressure 1: 116/80 Code: 8480-6 Heart Rate 1: 72 bpm Respiratory Rate: 20 bpm SpO2: 98% Temperature: 36.5 (C) / 97.7 (F) We ight: 232 lbs Code: 67510-3 12/11/2018 Blood Pressure 1: 120/82 Code: 8480-6 BMI: 36.2 Code: 70312-2 Heart Rate 1: 67 bpm Height: 5'7" Code: 8302-2 Respiratory Rate: 18 bpm SpO2: 96% Temperature: 35.9 (C) / 96.7 (F) Weight: 231 lbs Code: 03610-7 10/30/2018 Blood Pressure 1: 126/82 Code: 8480-6 Heart Rate 1: 80 bpm Respiratory Rate: 20 bpm SpO2: 96% Temperature: 36.8 (C) / 98.3 (F) We ight: 228 lbs Code: 46834-8 10/07/2018 Blood Pressure 1: 130/90 Code: 8480-6 Heart Rate 1: 76 bpm Respiratory Rate: 24 bpm SpO2: 97% Temperature: 36.0 (C) / 96.8 (F) We ight: 229 lbs Code: 89031-7 06/23/2018 Blood Pressure 1: 132/80 Code: 8480-6 Heart Rate 1: 72 bpm Respiratory Rate: 20 bpm SpO2: 98% Temperature: 36.7 (C) / 98.0 (F) We ight: 233 lbs Code: 61225-7 01/16/2018 Blood Pressure 1: 116/82 Code: 8480-6 Heart Rate 1: 72 bpm Respiratory Rate: 20 bpm SpO2: 96% Temperature: 36.9 (C) / 98.5 (F) We ight: 230 lbs Code: 68425-7 10/16/2017 Blood Pressure 1: 116/74 Code: 8480-6 BMI: 35.1 Code: 59081-3 Heart Rate 1: 76 bpm Height: 5'7" Code: 8302-2 Respiratory Rate: 20 bpm SpO2: 98% Temperature: 36.7 (C) / 98.1 (F) Weight: 224 lbs Code: 46119-8 09/12/2017 Blood Pressure 1: 124/78 Code: 8480-6 BMI: 34.6 Code: 63936-7 Heart Rate 1: 84 bpm Height: 5'7" Code: 8302-2 Respiratory Rate: 20 bpm SpO2: 95% Temperature: 36.6 (C) / 97.8 (F) Weight: 221 lbs Code: 23074-5 08/20/2017 Blood Pressure 1: 126/78 Code: 8480-6 Heart Rate 1: 92 bpm Height: 5'7" Code: 8302-2 Respiratory Rate: 20 bpm SpO2: 96% Temperature: 36 .9 (C) / 98.5 (F) 08/13/2017 Blood Pressure 1: 124/80 Code: 8480-6 BMI: 34.8 Code: 93971-2 Heart Rate 1: 80 bpm Height: 5'7" Code: 8302-2 Respiratory Rate: 20 bpm SpO2: 96% Temperature: 36.7 (C) / 98.0 (F) Weight: 222 lbs Code: 45171-2 07/29/2017 Blood Pressure 1: 114/70 Code: 8480-6 BMI: 34.5 Code: 11175-9 Heart Rate 1: 76 bpm Height: 5'7" Code: 8302-2 Respiratory Rate: 20 bpm SpO2: 97% Temperature: 36.9 (C) / 98.4 (F) Weight: 220 lbs Code: 55618-9 07/25/2017 Blood Pressure 1: 142/76 Code: 8480-6 BMI: 34.9 Code: 29743-3 Heart Rate 1: 92 bpm Height: 5'7" Code: 8302-2 Respiratory Rate: 18 bpm SpO2: 96% Temperature: 36.7 (C) / 98.1 (F) Weight: 223 lbs Code: 13216-2 06/10/2017 Blood Pressure 1: 136/82 Code: 8480-6 BMI: 34.3 Code: 90685-0 Heart Rate 1: 68 bpm Height: 5'7" Code: 8302-2 Respiratory Rate: 20 bpm SpO2: 96% Temperature: 36.7 (C) / 98.0 (F) Weight: 219 lbs Code: 64702-0 05/28/2017 Blood Pressure 1: 136/70 Code: 8480-6 BMI: 34.1 Code: 66772-4 Heart Rate 1: 84 bpm Height: 5'7" Code: 8302-2 Respiratory Rate: 20 bpm SpO2: 95% Temperature: 35.9 (C) / 96.6 (F) Weight: 218 lbs Code: 78537-0 04/04/2017 Blood Pressure 1: 122/78 Code: 8480-6 BMI: 33.4 Code: 62850-1 Heart Rate 1: 68 bpm Height: 5'7" Code: 8302-2 Respiratory Rate: 20 bpm SpO2: 96% Temperature: 36.7 (C) / 98.0 (F) Weight: 213 lbs Code: 61427-9 11/28/2016 Blood Pressure 1: 114/82 Code: 8480-6 BMI: 33.7 Code: 16403-5 Heart Rate 1: 72 bpm Height: 5'7" Code: 8302-2 Respiratory Rate: 20 bpm SpO2: 98% Temperature: 36.4 (C) / 97.6 (F) Weight: 215 lbs Code: 27325-6 06/05/2016 Blood Pressure 1: 104/68 Code: 8480-6 BMI: 33.7 Code: 13016-6 Heart Rate 1: 68 bpm Height: 5'7" Code: 8302-2 Respiratory Rate: 20 bpm SpO2: 96% Temperature: 36.8 (C) / 98.2 (F) Weight: 215 lbs Code: 62220-5 11/08/2015 Blood Pressure 1: 122/70 Code: 8480-6 BMI: 33.8 Code: 64649-6 Heart Rate 1: 80 bpm Height: 5'7" Code: 8302-2 Respiratory Rate: 20 bpm Temperatu re: 36.8 (C) / 98.2 (F) Weight: 216 lbs Code: 58440-7 07/19/2015 Blood Pressure 1: 122/70 Code: 8480-6 BMI: 33.0 Code: 41320-8 Heart Rate 1: 80 bpm Height: 5'7" Code: 8302-2 Respiratory Rate: 18 bpm Temperatu re: 35.9 (C) / 96.6 (F) Weight: 211 lbs Code: 03476-6 03/28/2015 Blood Pressure 1: 124/70 Code: 8480-6 BMI: 31.8 Code: 59700-1 Heart Rate 1: 72 bpm Height: 5'7" Code: 8302-2 Respiratory Rate: 20 bpm Temperatu re: 36.8 (C) / 98.2 (F) Weight: 203 lbs Code: 42083-2 02/08/2015 Blood Pressure 1: 98/58 Code: 8480-6 BMI: 32.1 C ode: 23473-3 Heart Rate 1: 84 bpm Height: 5'7" Code: 8302-2 Respiratory Rate: 20 bpm Temperatu re: 36.7 (C) / 98.0 (F) Weight: 205 lbs Code: 79862-3 01/11/2015 Blood Pressure 1: 118/78 Code: 8480-6 BMI: 32.1 Code: 62477-0 Heart Rate 1: 84 bpm Height: 5'7" Code: 8302-2 Respiratory Rate: 20 bpm Temperatu re: 36.6 (C) / 97.9 (F) Weight: 205 lbs Code: 51986-5 11/24/2014 Blood Pressure 1: 124/80 Code: 8480-6 BMI: 32.0 Code: 53180-7 Heart Rate 1: 76 bpm Height: 5'7" Code: 8302-2 Respiratory Rate: 20 bpm Temperatu re: 36.2 (C) / 97.1 (F) Weight: 204 lbs Code: 50243-3 11/19/2014 Blood Pressure 1: 132/78 Code: 8480-6 BMI: 32.7 Code: 06800-1 Heart Rate 1: 68 bpm Height: 5'7" Code: 8302-2 Respiratory Rate: 20 bpm SpO2: 98% Temperature: 36.7 (C) / 98.0 (F) Weight: 209 lbs Code: 04687-3 10/27/2014 Blood Pressure 1: 118/76 Code: 8480-6 BMI: 32.6 Code: 84736-1 Heart Rate 1: 64 bpm Height: 5'7" Code: 8302-2 Respiratory Rate: 20 bpm Temperatu re: 36.7 (C) / 98.0 (F) Weight: 208 lbs Code: 47050-5 09/23/2014 Blood Pressure 1: 118/68 Code: 8480-6 BMI: 34.3 Code: 68562-4 Heart Rate 1: 78 bpm Height: 5'7" Code: 8302-2 Respiratory Rate: 22 bpm Temperatu re: 36.4 (C) / 97.6 (F) Weight: 219 lbs Code: 90198-2 07/28/2014 Blood Pressure 1: 126/80 Code: 8480-6 BMI: 33.5 Code: 21987-7 Heart Rate 1: 76 bpm Height: 5'7" Code: 8302-2 Respiratory Rate: 20 bpm Temperatu re: 36.4 (C) / 97.6 (F) Weight: 214 lbs Code: 99502-3 03/30/2014 Blood Pressure 1: 128/80 Code: 8480-6 BMI: 35.2 Code: 43605-0 Heart Rate 1: 88 bpm Height: 5'7" Code: 8302-2 Respiratory Rate: 20 bpm Temperatu re: 36.4 (C) / 97.6 (F) Weight: 225 lbs Code: 43502-4 11/24/2013 Blood Pressure 1: 124/82 Code: 8480-6 BMI: 35.6 Code: 46167-8 Heart Rate 1: 80 bpm Height: 5'7" Code: 8302-2 Respiratory Rate: 22 bpm Temperatu re: 36.2 (C) / 97.1 (F) Weight: 227 lbs Code: 24781-8 08/25/2013 Blood Pressure 1: 128/80 Code: 8480-6 BMI: 37.4 Code: 55010-7 Heart Rate 1: 76 bpm Height: 5'7" Code: 8302-2 Respiratory Rate: 20 bpm Temperatu re: 36.6 (C) / 97.9 (F) Weight: 239 lbs Code: 65129-0 06/29/2013 Blood Pressure 1: 106/78 Code: 8480-6 BMI: 38.1 Code: 90164-5 Heart Rate 1: 80 bpm Height: 5'7" Code: 8302-2 Respiratory Rate: 20 bpm Temperatu re: 36.6 (C) / 97.9 (F) Weight: 243 lbs Code: 44398-6 05/26/2013 Blood Pressure 1: 122/80 Code: 8480-6 BMI: 39.3 Code: 85435-6 Heart Rate 1: 80 bpm Height: 5'7" Code: 8302-2 Respiratory Rate: 20 bpm Temperatu re: 36.9 (C) / 98.4 (F) Weight: 251 lbs Code: 08822-2 05/06/2013 Blood Pressure 1: 128/78 Code: 8480-6 BMI: 39.2 Code: 73152-4 Heart Rate 1: 76 bpm Height: 5'7" Code: 8302-2 Respiratory Rate: 22 bpm Temperatu re: 35.8 (C) / 96.4 (F) Weight: 250 lbs Code: 25279-6 04/23/2013 Blood Pressure 1: 132/92 Code: 8480-6 BMI: 39.6 Code: 16930-3 Heart Rate 1: 88 bpm Height: 5'7" Code: 8302-2 Respiratory Rate: 28 bpm SpO2: 97% Temperature: 36.5 (C) / 97.7 (F) Weight: 253 lbs Code: 31852-8 03/31/2013 Blood Pressure 1: 122/80 Code: 8480-6 BMI: 39.0 Code: 09767-5 Heart Rate 1: 84 bpm Height: 5'7" Code: 8302-2 Respiratory Rate: 20 bpm Temperatu re: 36.6 (C) / 97.8 (F) Weight: 249 lbs Code: 56098-4 03/05/2013 Blood Pressure 1: 120/80 Code: 8480-6 BMI: 39.2 Code: 73505-5 Heart Rate 1: 60 bpm Height: 5'7" Code: 8302-2 Respiratory Rate: 22 bpm Temperatu re: 35.9 (C) / 96.6 (F) Weight: 250 lbs Code: 87966-3 02/04/2013 Blood Pressure 1: 124/80 Code: 8480-6 BMI: 38.4 Code: 24413-6 Heart Rate 1: 80 bpm Height: 5'7" Code: 8302-2 Respiratory Rate: 20 bpm Temperatu re: 36.4 (C) / 97.6 (F) Weight: 245 lbs Code: 37496-3 11/27/2012 Blood Pressure 1: 127/83 Code: 8480-6 Te mperature: 36.1 (C) / 96.9 (F) Weight: 243 lbs 2 oz Code: 17740-8 11/11/2012 Blood Pressure 1: 126/82 Code: 8480-6 BMI: 37.4 Code: 86194-4 Heart Rate 1: 80 bpm Height: 5'7" Code: 8302-2 Respiratory Rate: 20 bpm Temperatu re: 36.8 (C) / 98.2 (F) Weight: 239 lbs Code: 96538-3 10/20/2012 Blood Pressure 1: 114/80 Code: 8480-6 BMI: 37.1 Code: 28428-1 Heart Rate 1: 104 bpm Height: 5'7" Code: 8302-2 Respiratory Rate: 20 bpm Temperatu re: 36.9 (C) / 98.4 (F) Weight: 237 lbs Code: 32036-0 09/03/2012 Blood Pressure 1: 118/72 Code: 8480-6 BMI: 37.3 Code: 75756-1 Heart Rate 1: 70 bpm Height: 5'7" Code: 8302-2 Temperature: 35.6 (C) / 96.0 (F) Weight: 238 lbs Code: 79254-4 07/23/2012 Blood Pressure 1: 124/78 Code: 8480-6 BMI: 36.8 Code: 00580-5 Heart Rate 1: 68 bpm Height: 5'7" Code: 8302-2 Temperature: 35.6 (C) / 96.0 (F) Weight: 235 lbs Code: 13924-7 05/20/2012 Blood Pressure 1: 112/70 Code: 8480-6 BMI: 37.1 Code: 15787-2 Heart Rate 1: 76 bpm Height: 5'7" Code: 8302-2 Respiratory Rate: 20 bpm Temperatu re: 36.7 (C) / 98.1 (F) Weight: 237 lbs Code: 75379-0 04/04/2012 Blood Pressure 1: 110/64 Code: 8480-6 BMI: 37.1 Code: 68648-9 Heart Rate 1: 68 bpm Height: 5'7" Code: 8302-2 Temperature: 36.1 (C) / 97.0 (F) Weight: 237 lbs Code: 17864-9 02/20/2012 Blood Pressure 1: 136/78 Code: 8480-6 BMI: 37.1 Code: 78641-1 Heart Rate 1: 72 bpm Height: 5'7" Code: 8302-2 Respiratory Rate: 20 bpm Temperatu re: 36.7 (C) / 98.0 (F) Weight: 237 lbs Code: 09714-7 01/02/2012 Blood Pressure 1: 122/70 Code: 8480-6 BMI: 37.1 Code: 30685-7 Heart Rate 1: 76 bpm Height: 5'7" Code: 8302-2 Respiratory Rate: 20 bpm Temperatu re: 37.0 (C) / 98.6 (F) Weight: 237 lbs Code: 90572-3 09/04/2011 Blood Pressure 1: 120/84 Code: 8480-6 BMI: 35.4 Code: 09567-9 Heart Rate 1: 68 bpm Height: 5'7" Code: 8302-2 Temperature: 30.0 (C) / 86.0 (F) Weight: 226 lbs Code: 98409-9 08/14/2011 Blood Pressure 1: 120/82 Code: 8480-6 BMI: 36.5 Code: 99048-9 Heart Rate 1: 80 bpm Height: 5'7" Code: 8302-2 Temperature: 36.6 (C) / 97.8 (F) Weight: 233 lbs Code: 31967-3 07/31/2011 Blood Pressure 1: 138/86 Code: 8480-6 BMI: 37.0 Code: 44620-9 Heart Rate 1: 94 bpm Height: 5'7" Code: 8302-2 Temperature: 35.4 (C) / 95.7 (F) Weight: 236 lbs Code: 50551-2 07/25/2011 Blood Pressure 1: 128/80 Code: 8480-6 BMI: 37.0 Code: 93786-1 Heart Rate 1: 80 bpm Height: 5'7" Code: 8302-2 Temperature: 35.6 (C) / 96.0 (F) Weight: 236 lbs Code: 37581-3 07/12/2011 Blood Pressure 1: 132/80 Code: 8480-6 BMI: 37.0 Code: 21927-6 Heart Rate 1: 96 bpm Height: 5'7" Code: 8302-2 Respiratory Rate: 20 bpm Temperatu re: 36.3 (C) / 97.3 (F) Weight: 236 lbs Code: 73040-1 05/09/2011 Blood Pressure 1: 106/78 Code: 8480-6 BMI: 36.6 Code: 03230-3 Heart Rate 1: 72 bpm Height: 5'7" Code: 8302-2 Respiratory Rate: 20 bpm Temperatu re: 36.4 (C) / 97.6 (F) Weight: 234 lbs Code: 27577-9 05/02/2011 Blood Pressure 1: 96/72 Code: 8480-6 BMI: 36.6 C ode: 35203-8 Heart Rate 1: 108 bpm Height: 5'7" Code: 8302-2 Respiratory Rate: 24 bpm Temperatu re: 36.7 (C) / 98.0 (F) Weight: 234 lbs Code: 26690-9 04/25/2011 Blood Pressure 1: 120/72 Code: 8480-6 BMI: 36.5 Code: 77689-1 Heart Rate 1: 70 bpm Height: 5'7" Code: 8302-2 Temperature: 36.7 (C) / 98.0 (F) Weight: 233 lbs Code: 77419-3 04/04/2011 Blood Pressure 1: 126/92 Code: 8480-6 BMI: 36.5 Code: 20486-9 Heart Rate 1: 84 bpm Height: 5'7" Code: 8302-2 Respiratory Rate: 20 bpm Temperatu re: 36.2 (C) / 97.2 (F) Weight: 233 lbs Code: 41789-4 03/01/2011 Blood Pressure 1: 132/78 Code: 8480-6 Heart Rate 1: 88 bpm Temperature: 36.8 (C) / 98.2 (F) Weight: 231 lbs Code: 03091-3 01/04/2011 Blood Pressure 1: 122/78 Code: 8480-6 BMI: 37.0 Code: 78793-7 Heart Rate 1: 80 bpm Height: 5'7" Code: 8302-2 Temperature: 37.0 (C) / 98.6 (F) Weight: 236 lbs Code: 28450-0 12/07/2010 Blood Pressure 1: 132/92 Code: 8480-6 Heart Rate 1: 98 bpm Temperature: 36.2 (C) / 97.2 (F) Weight: 237 lbs Code: 94775-8 10/09/2010 Blood Pressure 1: 128/80 Code: 8480-6 Heart Rate 1: 72 bpm Temperature: 36.5 (C) / 97.7 (F) Weight: 244 lbs Code: 78517-7 08/07/2010 Blood Pressure 1: 114/80 Code: 8480-6 Heart Rate 1: 72 bpm Temperature: 36.2 (C) / 97.1 (F) Weight: 245 lbs Code: 61552-0 06/06/2010 Blood Pressure 1: 132/86 Code: 8480-6 Heart Rate 1: 80 bpm Temperature: 36.8 (C) / 98.2 (F) Weight: 242 lbs Code: 22939-8 04/12/2010 Blood Pressure 1: 126/82 Code: 8480-6 Heart Rate 1: 72 bpm Temperature: 36.8 (C) / 98.2 (F) Weight: 237 lbs Code: 22709-1 03/20/2010 Blood Pressure 1: 124/78 Code: 8480-6 Heart Rate 1: 76 bpm Temperature: 36.1 (C) / 97.0 (F) Weight: 239 lbs Code: 56623-8 01/30/2010 Blood Pressure 1: 118/80 Code: 8480-6 Heart Rate 1: 84 bpm Temperature: 37.1 (C) / 98.7 (F) Weight: 239 lbs Code: 30963-0 01/09/2010 Blood Pressure 1: 120/72 Code: 8480-6 BMI: 36.8 Code: 89678-5 Heart Rate 1: 80 bpm Height: 5'7" Code: 8302-2 Temperature: 36.1 (C) / 97.0 (F) Weight: 235 lbs Code: 67830-2 11/07/2009 Blood Pressure 1: 140/36 Cod e: 8480-6 10/26/2009 Blood Pressure 1: 126/82 Code: 8480-6 BMI: 36.9 Code: 62441-9 Heart Rate 1: 84 bpm Height: 5'7" Code: 8302-2 Temperature: 36.5 (C) / 97.7 (F) Weight: 234 lbs Code: 21949-8 10/17/2009 Blood Pressure 1: 140/88 Code: 8480-6 BMI: 36.3 Code: 60486-2 Heart Rate 1: 88 bpm Height: 5'7" Code: 8302-2 Temperature: 36.7 (C) / 98.0 (F) Weight: 232 lbs Code: 29438-3 10/04/2009 Blood Pressure 1: 140/90 Code: 8480-6 BMI: 36.3 Code: 11939-5 Heart Rate 1: 84 bpm Height: 5'7" Code: 8302-2 Temperature: 36.4 (C) / 97.6 (F) Weight: 232 lbs Code: 31284-3 09/21/2009 Blood Pressure 1: 136/82 Code: 8480-6 BMI: 36.3 Code: 49035-5 Heart Rate 1: 88 bpm Height: 5'7" Code: 8302-2 Temperature: 35.8 (C) / 96.4 (F) Weight: 232 lbs Code: 17975-1 Functional Status No Functional Status data Reason For Visit Reason For Visit Effective Dates Notes nausea 09/05/2022 back pain 09/05/2022 dizziness 09/05/2022 [...] follow up 06/23/2018 foot pain 06/23/2018 Dr Saeed wants pat ient to have referral to rheumatology joint complaint 06/23/2018 follow up 01/16/2018 high blood pressure 01/16/2018 hyperlipidemia 01/16/2018 diabetes mellitus 01/16/2018 hypothyroid 01/16/2018 shoulder pain 10/16/2017 Pain radiating in ri ght neck and jaw area otalgia 10/16/2017 disturbances of thinking 09/12/2017 headache 09/12/2017 dizziness 09/12/2017 follow up 08/20/2017 cough 08/20/2017 follow up 08/13/2017 cough 08/13/2017 cough 07/29/2017 Patient diagnosed la week with flu and has finished prednisone muscle [...] 09/04/2011 chest congestion 09/04/2011 follow up 08/14/2011 [facility] 08/14/2011 venous thrombosis 08/14/2011 abdominal [...] Encounter Performer Location Location Address Codes Date ([id number]) OFFICE/OUTPATIENT VISIT EST Diagnosis: Acute cystitis[ICD10: N30.00] Marlene Kenyonverenice Sanchez JESSICAMARIALUISA [facility] [address] [place] [address] CPT-4: 20184 09/05/2022 ([id number]) OFFICE/OUTPATIENT VISIT EST Diagnosis: Degeneration of lumbar or lumbosacral intervertebral disc[ICD10: M51.37] Diagnosis: Cervicalgia[ICD10: M54.2] Marlene Kenyonverenice ELAM [facility] [address] [place] [address] CPT-4: 37671 08/30/2022 ([id number]) OFFICE/OUTPATIENT VISIT EST Diagnosis: Hypothyroidism[ICD10: E03.9] Diagnosis: Essential (primary) hypertension[ICD10: I10] Diagnosis: Mixed hyperlipidemia[ICD10: E78.2] Diagnosis: Stress at home[ICD10: F43.9] Jayna Sanchez JESSICAMARIALUISA [facility] [address] [place] [phone] CPT-4: 84593 08/07/2022 ([id number]) OFFICE/OUTPATIENT VISIT EST Diagnosis: Acute cystitis[ICD10: N30.00] Marlene Kenyonverenice Sanchez JESSICAMARIALUISA [facility] [address] [place] [address] CPT-4: 06236 06/29/2022 ([id number]) OFFICE/OUTPATIENT VISIT EST Diagnosis: Depression[ICD10: F32.A] Diagnosis: Hypothyroidism[ICD10: E03.9] Jayna Sanchez JANISAPOLINAR [facility] [address] [place] [phone] CPT-4: 15238 05/28/2022 ([id number]) OFFICE/OUTPATIENT VISIT EST Diagnosis: Depression[ICD10: F32.A] Diagnosis: Fatigue[ICD10: R53.83] Diagnosis: Hypothyroidism[ICD10: E03.9] Diagnosis: Hyperglycemia[ICD10: R73.9] Jayna PUCKETT [address] [address] CPT-4: 91713 05/10/2022 ([id number]) OFFICE/OUTPATIENT VISIT EST Diagnosis: Migraine, intractable[ICD10: G43.919] Marlene Kenyonverenice EZEQUIEL BRUCE[address] [address] CPT-4: 09741 04/18/2022 ([id number]) NURSE/OUTPATIENT VISIT EST Diagnosis: FLU VACCINE[ICD10: Z23] Jayna JIANG [address] [address] CPT-4: 56976 04/05/2022 ([id number]) OFFICE/OUTPATIENT VISIT EST Diagnosis: Allergic rhinitis[ICD10: J30.9] Diagnosis: Acute sinusitis[ICD10: J01.90] 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] Jayna VANESSA [address] [address] CPT-4: 07675 02/15/2022 ([id number]) Annual depression screening, 15 minutes Diagnosis: Encounter for general adult medical examination without abnormal findings[ICD10: Z00.00] Diagnosis: Essential (primary) hypertension[ICD10: I10] Diagnosis: Mixed hyperlipidemia[ICD10: E78.2] Diagnosis: Hypothyroidism, unspecified[ICD10: E03.9] Diagnosis: Chronic obstructive pulmonary disease, unspecified[ICD10: J44.9] Jayna [address] [address] CPT-4: G0444 02/06/2022 ([id number]) OFFICE/OUTPATIENT VISIT EST Diagnosis: 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] Diagnosis: Vision changes[ICD10: H53.9] Latasha VANESSA DO [address] [address] CPT-4: 04642 02/01/2022 ([id number]) OFFICE/OUTPATIENT VISIT EST Diagnosis: Diarrhea[ICD10: R19.7] Diagnosis: Cough[ICD10: R05.9] Jayna MORILLOLINE Daniel VANESSA DO [address] [address] CPT-4: 23107 11/30/19 ([id number]) OFFICE/OUTPATIENT VISIT EST Diagnosis: Post-viral cough syndrome[ICD10: R05.8] Diagnosis: Otalgia of both ears[ICD10: H92.03] Diagnosis: Diarrhea[ICD10: R19.7] Jayna GUTIERREZ TracyPaige BIANCA Villalba DO [address] [address] CPT-4: 01173 11/22/2021 ([id number]) OFFICE/OUTPATIENT VISIT EST Diagnosis: Diarrhea of presumed infectious origin[ICD10: R19.7] Diagnosis: Altered taste[ICD10: R43.2] Diagnosis: Chronic bronchitis[ICD10: J42] Diagnosis: History of recent pneumonia[ICD10: Z87.01] Latasha VANESSA DO [address] [address] CPT- 4: 03521 11/21/2021 ([id number]) OFFICE/OUTPATIENT VISIT EST Diagnosis: Serous otitis media[ICD10: H65.90] Diagnosis: Postnasal drip[ICD10: R09.82] Diagnosis: Pneumonia[ICD10: J18.9] Janya Jessicamarialuisa GUTIERREZ TracyPaige JANIS ER DO [address] [address] CPT-4: 99733 11/09/2021 ([id number]) NO CHARGE Diagnosis: Pneumonia[ICD10: J18.9] Diagnosis: Respiratory distress[ICD10: R06.03] Jayna KENNEY TracyPaige JANISER DO [address] [address] CPT-4: 36106 10/31/2021 ([id number]) OFFICE/OUTPATIENT VISIT EST Diagnosis: Vertigo[ICD10: R42] Diagnosis: Nausea[ICD10: R11.0] Diagnosis: Pneumonia[ICD10: J18.9] Jayna [facility] [address] [place] [address] CPT-4: 23700 10/30/2021 ([id number]) OFFICE/OUTPATIENT VISIT EST Diagnosis: Cervicalgia[ICD10: M54.2] Jayna [facility] [address] [place] [address] CPT-4: 98994 09/05/2021 ([id number]) OFFICE/OUTPATIENT VISIT EST Diagnosis: 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] Diagnosis: Seronegative rheumatoid arthritis[ICD10: M06.00] Latasha Castillomarthahoa VANESSA DO [address] [address] CPT- 4: 52199 08/24/2021 ([id number]) OFFICE/OUTPATIENT VISIT EST Diagnosis: Upper respiratory infection[ICD10: J06.9] Diagnosis: Contact with and (suspected) exposure to other viral communicable diseases[ICD10: Z20.828] Latasha Castillomatthew JAYNA VANESSA DO [address] [address] CPT-4: 77530 07/04/2021 ([id number]) NURSE/OUTPATIENT VISIT EST Diagnosis: FLU VACCINE[ICD10: Z23] Jayna [facility] [address] [place] [address] CPT-4: 53750 03/29/2021 ([id number]) OFFICE/OUTPATIENT VISIT EST Diagnosis: Vasovagal episode[ICD10: R55] Diagnosis: Orthostatic hypotension[ICD10: I95.1] Latasha Castillomatthew EZEQUIEL BRUCEER DO [address] [address] CPT-4: 88891 03/01/2021 ([id number]) OFFICE/OUTPATIENT VISIT EST Diagnosis: Sebaceous cyst of right axilla[ICD10: L72.3] Latasha VANESSA [address] [address] CPT- 4: 27775 02/08/2021 ([id number]) OFFICE/OUTPATIENT VISIT EST Diagnosis: Contact dermatitis[ICD10: L25.9] Jayna MORILLOLINE Daniel VANESSA DO [address] [address] CPT-4: 06536 01/19/2021 ([id number]) OFFICE/OUTPATIENT VISIT EST Diagnosis: Upper respiratory infection[ICD10: J06.9] Diagnosis: COPD exacerbation[ICD10: J44.1] Latasha VANESSA [address] [address] CPT-4: 73307 11/29/2020 ([id number]) OFFICE/OUTPATIENT VISIT EST Diagnosis: Sinusitis[ICD10: J32.9] Diagnosis: Acute pansinusitis, recurrence not specified[ICD10: J01.40] Latasha VANESSA DO [address] [address] CPT-4: 06106 09/29/2020 OFFICE/OUTPATIENT VISIT EST Diagnosis: Other seasonal allergic rhinitis[ICD10: J30.2] Diagnosis: Chronic bronchitis[ICD10: J42] Diagnosis: 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] Diagnosis: Middle ear effusion[ICD10: H65.90] Diagnosis: Fluid level behind tympanic membrane of both ears[ICD10: H65.93] Latasha VANESSA DO [address] [address] CPT-4: 26300 09/19/2020 ([id number]) OFFICE/OUTPATIENT VISIT EST Diagnosis: Right-sided tinnitus[ICD10: H93.11] Jayna KENNEY Daniel VANESSA [address] [address] CPT-4: 39261 08/10/2020 ([id number]) OFFICE/OUTPATIENT VISIT EST Diagnosis: Dysfunction of right eustachian tube[ICD10: H69.81] Diagnosis: Right-sided tinnitus[ICD10: H93.11] [facility] [address] [place] [address] CPT-4: 99440 2020 ([id number]) OFFICE/OUTPATIENT VISIT EST Diagnosis: Pyelonephritis[ICD10: N12] Diagnosis: Anemia[ICD10: D64.9] Diagnosis: Blood in stool[ICD10: K92.1] Jayna VANESSA [address] [address] CPT-4: 39730 07/13/2020 ([id number]) OFFICE/OUTPATIENT VISIT EST Diagnosis: Acute gastroenteritis[ICD10: K52.9] Jayna MORILLOAlecia VANESSA [address] [address] CPT-4: 50006 07/05/2020 ([id number]) OFFICE/OUTPATIENT VISIT EST Diagnosis: Essential hypertension[ICD10: I10] Diagnosis: Hypothyroidism, unspecified[ICD10: E03.9] Diagnosis: Metabolic syndrome[ICD10: E88.81] Diagnosis: Mixed hyperlipidemia[ICD10: E78.2] Diagnosis: 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] Jayna VANESSA [address] [address] CPT- 4: 05670 06/22/2020 ([id number]) OFFICE/OUTPATIENT VISIT EST Diagnosis: Urinary tract infection[ICD10: N39.0] Jayna CLARKCOLETTE VANESSA [address] [address] CPT-4: 63850 05/17/2020 ([id number]) OFFICE/OUTPATIENT VISIT EST Diagnosis: Right pulmonary embolus[ICD10: I26.99] Jayna StonerBUZZ VANESSA [facility] [address] [place] [address] CPT-4: 72380 03/14/2020 ([id number]) OFFICE/OUTPATIENT VISIT EST Diagnosis: COVID-19[ICD10: U07.1] Diagnosis: Pneumonia[ICD10: J18.9] Diagnosis: Dyspnea[ICD10: R06.00] Jayna Oremarialuisa GUTIERREZ TracyPaige BIANCA Villalba DO [facility] [address] [place] [address] CPT-4: 84346 03/07/2020 ([id number]) OFFICE/OUTPATIENT VISIT EST Diagnosis: Upper respiratory infection[ICD10: J06.9] Genesis Fernández Wanda RODRIGUE VANESSA [address] [address] CPT-4: 97598 02/11/2020 ([id number]) OFFICE/OUTPATIENT VISIT EST Diagnosis: Dermatitis[ICD10: L30.9] Diagnosis: Urticaria[ICD10: L50.9] Jayna Vanessa [facility] [address] [place] [address] CPT-4: 65222 09/29/2019 ([id number]) OFFICE/OUTPATIENT VISIT EST Diagnosis: Bone spur of right foot[ICD10: M77.51] Diagnosis: Recurrent UTI[ICD10: N39.0] Diagnosis: MRSA (methicillin resistant staph aureus) culture positive[ICD10: Z22.322] aJyna Vanessa [facility] [address] [place] [address] CPT-4: 77349 09/14/2019 ([id number]) NURSE/OUTPATIENT VISIT EST Diagnosis: Urinary tract infection[ICD10: N39.0] Jayna Jessicamarialuisa GERBER TracyPaige JESSICASHONAAPOLINAR [address] [address] CPT-4: 16384 09/11/2019 ([id number]) NURSE/OUTPATIENT VISIT EST Diagnosis: Urinary tract infection, site not specified[ICD10: N39.0] Jayna GUTIERREZ TracyPaige VANESSA DO [address] [address] CPT-4: 06818 09/08/2019 ([id number]) NURSE/OUTPATIENT VISIT EST Diagnosis: Urinary tract infection, site not specified[ICD10: N39.0] Jayna GREENBERGNDAPOLINAR DO [address] [address] CPT-4: 63090 09/07/2019 ([id number]) OFFICE/OUTPATIENT VISIT EST Diagnosis: Pelvic pain in female[ICD10: R10.2] Diagnosis: Urinary frequency[ICD10: R35.0] Genesis VANESSA DO [address] [address] CPT-4: 14046 09/02/2019 ([id number]) OFFICE/OUTPATIENT VISIT EST Diagnosis: Sinusitis[ICD10: J32.9] Genesis BRUCE ER DO [address] [address] CPT-4: 04338 07/09/2019 ([id number]) OFFICE/OUTPATIENT VISIT EST Diagnosis: UTI (urinary tract infection)[ICD10: N39.0] Diagnosis: FLU VACCINE[ICD10: Z23] Genesis BRUCE ER DO [address] [address] CPT-4: 86437 04/15/2019 ([id number]) OFFICE/OUTPATIENT VISIT EST Diagnosis: Pain in right leg[ICD10: M79.604] Genesis BRUCEER DO [address] [address] CPT-4: 10145 04/07/2019 ([id number]) OFFICE/OUTPATIENT VISIT EST Diagnosis: Diverticulitis of large intestine without perforation or abscess without bleeding[ICD10: K57.32] Diagnosis: Cystitis[ICD10: N30.90] Jayna BRUCE ER DO [address] [address] CPT-4: 86042 03/25/2019 ([id number]) OFFICE/OUTPATIENT VISIT EST Diagnosis: Abdominal pain[ICD10: R10.9] Diagnosis: Cystitis[ICD10: N30.90] Jayna JIANG DO [address] [address] CPT-4: 15920 03/18/2019 ([id number]) OFFICE/OUTPATIENT VISIT EST Diagnosis: Diverticulitis of large intestine without perforation or abscess without bleeding[ICD10: K57.32] Diagnosis: Generalized abdominal pain[ICD10: R10.84] Diagnosis: Urinary tract infection, site not specified[ICD10: N39.0] Genesis VANESSA DO [address] [address] CPT-4: 27662 01/26/2019 ([id number]) OFFICE/OUTPATIENT VISIT EST Diagnosis: Mild intermittent asthma with (acute) exacerbation[ICD10: J45.21] Diagnosis: Allergic rhinitis due to pollen[ICD10: J30.1] Jayna VANESSA DO [address] [address] CPT- 4: 98627 01/08/2019 ([id number]) OFFICE/OUTPATIENT VISIT EST Diagnosis: Mild intermittent asthma with (acute) exacerbation[ICD10: J45.21] Diagnosis: URI, ACUTE[ICD10: J06.9] Diagnosis: Urinary tract infection, site not specified[ICD10: N39.0] Jayna VANESSA DO [address] [address] CPT-4: 15144 01/06/2019 ([id number]) OFFICE/OUTPATIENT VISIT EST Diagnosis: Benign paroxysmal vertigo, bilateral[ICD10: H81.13] Diagnosis: Migraine without aura, not intractable, without status migrainosus[ICD10: G43.009] Jayna VANESSA DO [address] [address] CPT-4: 49612 10/30/2018 ([id number]) OFFICE/OUTPATIENT VISIT EST Diagnosis: Acute bronchitis, unspecified[ICD10: J20.9] Diagnosis: Cough[ICD10: R05] Diagnosis: Other seasonal allergic rhinitis[ICD10: J30.2] Stacey MORILLOLINE Daniel GREENBERGNDER DO [facility] [address] [place] [address] CPT- 4: 71851 10/07/2018 ([id number]) OFFICE/OUTPATIENT VISIT EST Diagnosis: Pain in unspecified joint[ICD10: M25.50] Diagnosis: Pain in right ankle and joints of right foot[ICD10: M25.571] Diagnosis: Other specified disorders of bone density and structure, unspecified site[ICD10: M85.80] Jayna GUTIERREZ Daniel GREENBERGNDER DO [facility] [address] [place] [address] CPT-4: 29039 06/23/2018 ([id number]) OFFICE/OUTPATIENT VISIT EST Diagnosis: Hypothyroidism, unspecified[ICD10: E03.9] Diagnosis: Mixed hyperlipidemia[ICD10: E78.2] Jayna ALVARENGA SPaige GREENBERGNDER DO [facility] [address] [place] [address] CPT-4: 55898 01/16/2018 ([id number]) OFFICE/OUTPATIENT VISIT EST Diagnosis: Cervicalgia[ICD10: M54.2] Genesis Francoisdi JAYNA Daniel GREENBERG NDER DO [facility] [address] [place] [address] CPT-4: 81736 10/16/2017 ([id number]) OFFICE/OUTPATIENT VISIT EST Diagnosis: Headache[ICD10: R51] Diagnosis: Dizziness and giddiness[ICD10: R42] Jayna KENNEY SPaige GREENBERGNDER DO [facility] [address] [place] [address] CPT-4: 76367 09/12/2017 OFFICE/OUTPATIENT VISIT EST Diagnosis: Cough[ICD10: R05] Genesis Fernández JAYNA SPaige GREENBERGNDER DO [facility] [address] [place] [address] CPT-4: 39761 08/20/2017 ([id number]) OFFICE/OUTPATIENT VISIT EST Diagnosis: COUGH[ICD10: R05] Jayna VANESSA DO [address] [address] CPT-4: 18661 08/13/19 ([id number]) OFFICE/OUTPATIENT VISIT EST Diagnosis: Acute bronchospasm[ICD10: J98.01] Jayna VANESSA [address] [address] CPT-4: 66173 07/29/2017 OFFICE/OUTPATIENT VISIT EST Diagnosis: Influenza due to identified novel influenza A virus with other respiratory manifestations[ICD10: J09.X2] Genesis VANESSA DO [address] [address] CPT-4: 30912 07/25/2017 ([id number]) OFFICE/OUTPATIENT VISIT EST Diagnosis: Pain in unspecified joint[ICD10: M25.50] Jayna VANESSA DO [address] [address] CPT- 4: 77244 06/10/2017 OFFICE/OUTPATIENT VISIT EST Diagnosis: Acute bronchitis, unspecified[ICD10: J20.9] Genesis VANESSA DO [address] [address] CPT- 4: 75466 05/28/2017 ([id number]) OFFICE/OUTPATIENT VISIT EST Diagnosis: Hypothyroidism, unspecified[ICD10: E03.9] Diagnosis: Mixed hyperlipidemia[ICD10: E78.2] Diagnosis: 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] Diagnosis: Sebaceous cyst[ICD10: L72.3] Jayna VANESSA DO [address] [address] CPT-4: 54319 11/28/2016 ([id number]) OFFICE/OUTPATIENT VISIT EST Diagnosis: Right upper quadrant pain[ICD10: R10.11] Diagnosis: Epigastric pain[ICD10: R10.13] Jayna VANESSA DO [facility] [address] [place] [address] CPT-4: 77374 06/05/2016 ([id number]) OFFICE/OUTPATIENT VISIT EST Diagnosis: FLU VACCINE[ICD10: Z23] Jayna BRUCE ER DO [address] [address] CPT-4: 50342 05/01/2016 OFFICE/OUTPATIENT VISIT EST Diagnosis: Hypothyroidism, unspecified[ICD10: E03.9] Diagnosis: Type 1 diabetes mellitus without complications[ICD10: E10.9] Diagnosis: Mixed hyperlipidemia[ICD10: E78.2] Diagnosis: Essential (primary) hypertension[ICD10: I10] Diagnosis: Mixed incontinence[ICD10: N39.46] Jayna Jessicamarialuisa IGLESIA Martha VANESSA DO [facility] [address] [place] [address] CPT-4: 20796 11/08/2015 ([id number]) OFFICE/OUTPATIENT VISIT EST Diagnosis: Hypothyroidism, unspecified[ICD10: E03.9] Diagnosis: Other fatigue[ICD10: R53.83] Jayna VANESSA DO [address] [address] CPT-4: 06565 07/19/2015 ([id number]) OFFICE/OUTPATIENT VISIT EST Diagnosis: Hypothyroidism, unspecified[ICD10: E03.9] Diagnosis: Mixed hyperlipidemia[ICD10: E78.2] Diagnosis: Metabolic syndrome[ICD10: E88.81] Diagnosis: Right lower quadrant abdominal tenderness[ICD10: R10.813] Diagnosis: FLU VACCINE[ICD10: Z23] Jayna BRUCE ER DO [facility] [address] [place] [address] CPT-4: 50140 03/28/2015 ([id number]) OFFICE/OUTPATIENT VISIT EST Diagnosis: MALAISE AND FATIGUE[ICD9: 780.79] Diagnosis: DEPRESSIVE DISORDER NEC[ICD9: 311] Diagnosis: HYPOTHYROIDISM[ICD9: 244.9] Diagnosis: PNEUMOCOCCAL VACCINE[ICD10: Z23] Jaynaparam VANESSA [address] [address] CPT-4: 04679 02/08/2015 ([id number]) OFFICE/OUTPATIENT VISIT EST Diagnosis: MALAISE AND FATIGUE[ICD9: 780.79] Diagnosis: DEPRESSIVE DISORDER NEC[ICD9: 311] Diagnosis: HYPOTHYROIDISM[ICD9: 244.9] Diagnosis: ARTHRALGIA-MULTIPLE SITES[ICD9: 719.49] Jayna VANESSA [address] [address] CPT-4: 17546 01/11/2015 ([id number]) OFFICE/OUTPATIENT VISIT EST 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] Diagnosis: - I - HYPOTHYROIDISM[ICD9: 244.9] Diagnosis: COUGH[ICD10: R05] Diagnosis: ALLERGIC RHINITIS[ICD9: 477.9] Diagnosis: Lumbar degenerative disc disease[ICD9: 722.52] Jayna MORILLOLINE TracyPaige ANDIE [address] [address] CPT- 4: 78778 11/24/2014 ([id number]) OFFICE/OUTPATIENT VISIT EST Diagnosis: Allergic reaction[ICD9: 995.3] Galina Leos JAYNA Molina Paige ANDIE [address] [address] CPT-4: 39568 11/19/2014 ([id number]) OFFICE/OUTPATIENT VISIT EST Diagnosis: ALLERGIC RHINITIS[ICD9: 477.9] Diagnosis: WHEEZING[ICD9: 786.07] Diagnosis: URINARY TRACT INFECTION[ICD9: 599.0] Diagnosis: Right flank pain[ICD9: 789.09] Conchita VILLARREALQUELINE Tracy Paige ANDIE [address] [address] CPT-4: 26509 10/27/2014 ([id number]) OFFICE/OUTPATIENT VISIT EST Diagnosis: URINARY TRACT INFECTION[ICD9: 599.0] Diagnosis: Flank pain[ICD9: 789.09] Conchita GUTIERREZ Tracy. MOOK EMMA DO [address] [address] CPT-4: 05659 09/23/2014 ([id number]) OFFICE/OUTPATIENT VISIT EST Diagnosis: HYPERTENSION[ICD9: 401.9] Diagnosis: - I - HYPOTHYROIDISM[ICD9: 244.9] Diagnosis: HYPERLIPIDEMIA NEC/NOS[ICD9: 272.4] Diagnosis: DYSMETABOLIC SYNDROME X[ICD9: 277.7] Jayna QUEZADA SPaige ORENDER DO [address] [address] CPT-4: 12711 07/28/2014 OFFICE/OUTPATIENT VISIT EST Diagnosis: HYPERTENSION[ICD9: 401.9] Diagnosis: GROSS HEMATURIA[ICD9: 599.71] Jayna GUTIERREZ SPaige ORENDER DO [address] [address] CPT-4: 01446 03/30/2014 ([id number]) OFFICE/OUTPATIENT VISIT EST 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] Diagnosis: - I - HYPOTHYROIDISM[ICD9: 244.9] Diagnosis: HYPERLIPIDEMIA NEC/NOS[ICD9: 272.4] Diagnosis: HYPERTENSION[ICD9: 401.9] Jayna GUTIERREZ SPaige ORE NDEDeejay DO [address] [address] CPT-4: 37106 11/24/2013 ([id number]) OFFICE/OUTPATIENT VISIT EST 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] Diagnosis: HYPERLIPIDEMIA NEC/NOS[ICD9: 272.4] Diagnosis: HYPOTHYROIDISM[ICD9: 244.9] Jayna GUTIERREZ SPaige O RENDER DO [address] [address] CPT-4: 86986 08/25/2013 OFFICE/OUTPATIENT VISIT EST Diagnosis: DEPRESSIVE DISORDER NEC[ICD9: 311] Jayna Sanchez ORENDER DO [address] [address] CPT-4: 29576 06/29/2013 OFFICE/OUTPATIENT VISIT EST Diagnosis: DEPRESSIVE DISORDER NEC[ICD9: 311] Jayna VILLARREALOTTO VANESSA [address] [address] CPT-4: 71471 05/26/2013 ([id number]) OFFICE/OUTPATIENT VISIT EST Diagnosis: BRONCHITIS, ACUTE[ICD9: 466.0] Diagnosis: HYPOTHYROIDISM[ICD9: 244.9] Diagnosis: HYPERLIPIDEMIA NEC/NOS[ICD9: 272.4] Diagnosis: Shoulder pain[ICD9: 719.41] Jayna MORILLOLINE Daniel PUCKETT DO [address] [address] CPT-4: 77511 05/06/2013 ([id number]) OFFICE/OUTPATIENT VISIT EST Diagnosis: BRONCHITIS, ACUTE[ICD9: 466.0] Diagnosis: SINUSITIS, ACUTE[ICD9: 461.9] Jayna MORILLOLINE Daniel VANESSA [address] [address] CPT-4: 85732 04/23/2013 ([id number]) OFFICE/OUTPATIENT VISIT EST Diagnosis: DYSPNEA[ICD9: 786.09] Diagnosis: EDEMA[ICD9: 782.3] Diagnosis: XMHVA-6-KRIMYCBIJAX DEFICIENCY[ICD9: 273.4] Diagnosis: COUGH[ICD9: 786.2] Jayna MORILLOLINE Daniel VANESSA [address] [address] CPT-4: 24325 03/31/20 OFFICE/OUTPATIENT VISIT EST Diagnosis: Chest pain[ICD9: 786.50] Diagnosis: ANXIETY STATE NOS[ICD9: 300.00] Conchita Liborio JAYNA VANESSA [address] [address] CPT-4: 11168 03/05/2013 ([id number]) OFFICE/OUTPATIENT VISIT EST Diagnosis: HYPERLIPIDEMIA NEC/NOS[ICD9: 272.4] Diagnosis: HYPOTHYROIDISM[ICD9: 244.9] Diagnosis: Vbkfg-6-dzwkjjggfjh deficiency[ICD9: 273.4] Diagnosis: ALLERGIC RHINITIS[ICD9: 477.9] Jayna MORILLOLINE Tracy VANESSA [address] [address] CPT-4: 55260 02/04/2013 ([id number]) OFFICE/OUTPATIENT VISIT EST Diagnosis: COUGH[ICD9: 786.2] Diagnosis: ALLERGIC RHINITIS[ICD9: 477.9] Jayna VANESSA DO [address] [address] CPT-4: 51235 11/27/2012 ([id number]) OFFICE/OUTPATIENT VISIT EST Diagnosis: COUGH[ICD9: 786.2] Diagnosis: DYSPNEA[ICD9: 786.09] Jayna VANESSA DO [address] [address] CPT-4: 21429 11/11/2012 ([id number]) OFFICE/OUTPATIENT VISIT EST Diagnosis: ABDOMINAL PAIN[ICD9: 789.00] Diagnosis: DIARRHEA[ICD9: 787.91] Diagnosis: COUGH[ICD9: 786.2] Jayna VANESSA [address] [address] CPT-4: 49151 10/21/19 OFFICE/OUTPATIENT VISIT EST Diagnosis: COUGH[ICD9: 786.2] Diagnosis: SINUSITIS, ACUTE[ICD9: 461.9] Diagnosis: PHARYNGITIS, ACUTE[ICD9: 462] Jayna VANESSA [address] [address] CPT-4: 18697 09/03/2012 OFFICE/OUTPATIENT VISIT EST Diagnosis: ABDOMINAL PAIN[ICD9: 789.00] Diagnosis: Diarrhea[ICD9: 787.91] Jayna Villalba [address] [address] CPT-4: 58412 07/23/2012 ([id number]) OFFICE/OUTPATIENT VISIT EST Diagnosis: DM 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 TYPE II, UNCONTROLLED[ICD9: 250.02] Diagnosis: HYPERLIPIDEMIA NEC/NOS[ICD9: 272.4] Diagnosis: GERD[ICD9: 530.81] Jayna MORILLOLINE TracyPaige JESSICANDER DO [address] [address] CPT-4: 22030 05/20/20 12 OFFICE/OUTPATIENT VISIT EST Diagnosis: DERMATITIS NOS[ICD9: 692.9] Galinalexie GUTIERREZ TracyPaige Helga ITALO DO [address] [address] CPT-4: 85489 04/04/2012 ([id number]) OFFICE/OUTPATIENT VISIT EST Diagnosis: HYPERLIPIDEMIA NEC/NOS[ICD9: 272.4] Diagnosis: HYPOTHYROIDISM[ICD9: 244.9] Diagnosis: DYSMETABOLIC SYNDROME X[ICD9: 277.7] Jayna Jessicamarialuisa QUEZADA TracyPaige JESSICANDER DO [address] [address] CPT-4: 70903 01/02/2012 OFFICE/OUTPATIENT VISIT EST Diagnosis: COUGH[ICD9: 786.2] Diagnosis: SINUSITIS, ACUTE[ICD9: 461.9] Lizzie VILLARREALQUELINE TracyPaige JESSICANDER DO [address] [address] CPT-4: 18628 09/04/2011 OFFICE/OUTPATIENT VISIT EST Diagnosis: Diverticulitis[ICD9: 562.11] Diagnosis: THROMBOPHLEBITIS[ICD9: 451.9] Jayna Jessicashonaapolinar JAYNA TracyPaige JESSICANDER DO [address] [address] CPT-4: 04354 08/14/2011 OFFICE/OUTPATIENT VISIT EST Diagnosis: COUGH[ICD9: 786.2] Jayna Jessicashonaapolinar JAYNA TracyPaige JESSICANDER DO [address] [address] CPT-4: 47341 07/25/19 OFFICE/OUTPATIENT VISIT EST Diagnosis: HYPOTHYROIDISM[ICD9: 244.9] Diagnosis: HYPERLIPIDEMIA NEC/NOS[ICD9: 272.4] Diagnosis: Total knee replacement status[ICD9: V43.65] Jayna Jessicamarialuisa GUTIERREZ TracyPaige JESSICANDER DO [address] [address] CPT- 4: 37797 07/12/2011 OFFICE/OUTPATIENT VISIT EST Diagnosis: BRONCHITIS, ACUTE[ICD9: 466.0] Diagnosis: COUGH[ICD9: 786.2] Jayna MORILLOLINE TracyPaige ORENDER DO [address] [address] CPT-4: 35675 05/09/20 11 OFFICE/OUTPATIENT VISIT EST Diagnosis: BRONCHITIS, ACUTE[ICD9: 466.0] Diagnosis: ASTHMA NOS[ICD9: 493.90] Diagnosis: Pleurisy[ICD9: 511.0] Jayna Greenbergshonaapolinar JAYNA TracyPaige [facility] [address] [place] [phone] CPT-4: 05967 05/02/2011 OFFICE/OUTPATIENT VISIT EST Diagnosis: COUGH[ICD9: 786.2] Jayna Vanessa JAYNA TracyPaige ORENDER DO [facility] [address] [place] [phone] CPT-4: 74636 04/25/20 11 OFFICE/OUTPATIENT VISIT EST Diagnosis: COUGH[ICD9: 786.2] Diagnosis: SINUSITIS, ACUTE[ICD9: 461.9] Jayna Jessicamarialuisa GUTIERREZ TracyPaige ORENDER DO [facility] [address] [place] [phone] CPT-4: 98658 04/04/2011 OFFICE/OUTPATIENT VISIT EST Diagnosis: HYPOTHYROIDISM[ICD9: 244.9] Diagnosis: Knee osteoarthritis[ICD9: 715.96] Jayna Thomas TracyPaige ORENDER DO [facility] [address] [place] [phone] CPT-4: 65745 03/01/2011 OFFICE/OUTPATIENT VISIT EST Jayna GUTIERREZ TracyPaige ORE NDER DO [facility] [address] [place] [phone] CPT-4: 29753 01/04/2011 ([id number]) OFFICE/OUTPATIENT VISIT EST Jayna MARIA [facility]Paige [facility] [address] [place] [phone] CPT-4: 91326 12/07/2010 ([id number]) OFFICE/OUTPATIENT VISIT EST Jayna PISANO UELINE S[facility] [address] [place] [phone] CPT-4: 19994 10/09/2010 ([id number]) OFFICE/OUTPATIENT VISIT EST Jayna MARIA [facility] [address] [place] [phone] CPT-4: 60347 08/07/2010 (20473) OFFICE/OUTPATIENT VISIT, EST Jayna COPELANDLINE S. [facility] [address] [place] [phone] CPT-4: 88785 06/06/2010 ([id number]) OFFICE/OUTPATIENT VISIT, EST Jayna SAM S[facility] [address] [place] [phone] CPT-4: 93041 03/20/2010 (77076) OFFICE/OUTPATIENT VISIT, EST Jayna COPELANDLINE S. [facility] [address] [place] [phone] CPT-4: 87372 01/30/2010 (99305) OFFICE/OUTPATIENT VISIT, EST Jayna COPELANDLINE S. [facility] [address] [place] [phone] CPT-4: 26782 01/09/2010 ([id number]) OFFICE/OUTPATIENT VISIT, EST Jayna COPELANDLINE S. [facility] [address] [place] [phone] CPT-4: 59570 10/26/2009 ([id number]) OFFICE/OUTPATIENT VISIT, EST Lizzie Kelly JAYNA S. [facility] [address] [place] [phone] CPT-4: 37774 10/18/19 10 (40644) OFFICE/OUTPATIENT VISIT, EST Jaynaparam COPELANDLINE S. [facility] [address] [place] [phone] CPT-4: 18693 10/04/2009 (18903) OFFICE/OUTPATIENT VISIT, EST Jayna VANESSA DO [facility] [address] [place] [address] CPT-4: 82534 09/21/2009 Plan of Care Planned Activity Notes Codes Status Date Visit Diagnosis Plan: Acute cystitis Discussion: Start Macrobid 100mg bid x7 days. Continue to drink plenty of water. Urine sent for culture-- will notify of results. Recommend soft, bland diet for a few days. ICD-9 : 595.0 ICD-10 : N30.00 09/05/2022 Appointment: Marlene Staples WPtel: [address] [phone] ACUTE ILLNESS [...] M51.37 08/30/2022 Appointment: Mar[facility] Staples [facility]el[facility] [phone] [facility] [facility] FOLLOW UP 08/30/2022 Patient Education: Patient Medication Summary Completed 08/30/2022 Visit Diagnosis Plan: Discussion: Stable Labs disc ussed 08/07/2022 Visit Diagnosis Plan: Essential (primary) hypertension Discussion: Stable ICD-9 : 401.9 ICD-10 : I10 08/07/2022 Visit Diagnosis Plan: Discussion: Update lipids 08/07/2022 Visit Diagnosis Plan: Stress at home Discussion: With 's health ICD-9 : V61.9 ICD-10 : F43.9 08/07/2022 Appointment: Jay[facility] Vanessa [facility]el[facility] [phone] [phone] [facility] FOLLOW UP 08/07/2022 Visit Diagnosis Plan: Acute [...] N30.00 06/29/2022 Appointment: Marlene Staples WPtel: [phone] [phone] ACUTE ILLNESS 06/29/2022 Patient Education: ciprofloxacin HCl- OptimizeRX Coupon [id number] Completed 06/29/2022 Visit Diagnosis Plan: Depression Discussion: Increase Wellbutrin XL to 300mg po qAM Fwup 2 mos ICD-9 : 311 ICD-10 : F32.A 05/28/2022 Visit Diagnosis Plan: Hypothyroidism Discussion: Labs discussed Decrease levothyroxine to 150mcg 6 days a week and repeat thyroid lab in 2mos ICD-9 : 244.9 ICD-10 : E03.9 05/28/2022 Appointment: Jayna Vanessa WPtel: [address] [place], [place] [phone] US FOLLOW UP 05/28/2022 Visit Diagnosis Plan: [...] R73.9 05/10/2022 Appointment: Jayna Vanessa WPtel: [phone] [phone] US FOLLOW UP 05/10/2022 Visit Diagnosis Plan: Migraine, intractable Discussion : Toradol 30mg IM x1 given in clinic. Start Rizatriptan-- discussed on how to use and may repeat x1 dose 2 hours later. Restart propranolol for migraine prevention. Notify clinic if migraine not improving. ICD-9 : 346.91 ICD-10 : G43.919 04/18/2022 Appointment: Marlene Staples WPtel: [address] [phone] US ACUTE ILLNESS 04/18/2022 Patient Education: propranolol- OptimizeRX Coupon [id number] Completed 04/18/2022 Appointment: Jayna Vanessa WPtel: [address] [place] [address] US INJECTION 04/05/2022 Appointment: Jayna Vanessa WPtel: [address] [place], [place] [phone] US CANCELED 03/21/2022 Visit Diagnosis Plan: Acute sinusitis Discussion: Pred nisone Notify if worsening persists ICD-9 : 461.9 ICD-10 : J01.90 02/15/2022 Visit Diagnosis Plan: Bilateral temporomandibular join t disorder Discussion: Ice and prednisone If worsening will check ESR ICD-9 : 524.60 ICD-10 : M26.603 02/15/2022 Visit Diagnosis Plan: Allergic rhinitis Discussion: Co ntineric garciaeoje xyzal ICD-9 : 477.9 ICD-10 : J30.9 02/15/2022 Appointment: Jayna Vanessa WPtel: [address] [place] [address] US ACUTE ILLNESS 02/15/2022 Patient Education: prednisone- OptimizeRX Coupon [phone] https://www.Optini/samplemd/resources/getResource/61/41v67rm0-u500-2u27-lu Completed 02/15/2022 Visit Diagnosis Plan: Hypothyroidism, unspecified Disc ussion: Stable ICD-9 : 244.9 ICD-10 : E03.9 02/06/2022 Visit Diagnosis Plan: Encounter for [facility] adult medical examination without abnormal findings [...] 496 ICD-10 : J44.9 02/06/2022 Appointment: Jayna Vanessatel: [phone] [phone] Annual Well Visit 02/06/2022 Care Plan: Annual [...] 02/01/2022 Appointment: Latasha Anand WPtel: [phone] [facility] ACUTE ILLNESS 02/01/2022 Patient Education: Patient Medication Summary Completed 02/01/2022 Visit Diagnosis Plan: Cough Discussion: Finish Breztri Continue sinulair for full 30 day supply Notify if worsening ICD-9 : 786.2 ICD-10 : R05.9 11/29/2021 Visit Diagnosis Plan: Diarrhea Discussion: Add flagyll Stool studies if persists--patient will let us know in 1 week how doing ICD-9 : 787.91 ICD-10 : R19.7 11/29/2021 Appointment: Jayna Vanessal: [address] [phone] FOLLOW UP 11/29/2021 Visit Diagnosis Plan: Diarrhea Discussion: C Diff nega tive Treat with diflucan and Restora-RX Fwup 1 week ICD-9 : 787.91 ICD-10 : R19.7 11/22/2021 Visit Diagnosis Plan: Post-viral cough syndrome Discus joaquín: Change albuterol to Breztri 2p BID Add singulair 10mg po q HS ICD-9 : 786.2 ICD-10 : R05.8 11/22/2021 Appointment: Jayna Vanessa WPtel: [phone] [phone] ACUTE ILLNESS 11/22/2021 Patient Education: Singulair- OptimizeRX Coupon [phone] https://www.Optini/samplemd/resources/getResource/61/1o04yff3-0duk-9064-9c Completed 11/22/2021 Visit Diagnosis Plan: Diarrhea of presumed infectious origin Discussion: Will check for c-diff due to recent antibiotics and foul smelling diarrhea ICD-9 : 009.3 ICD-10 : R19.7 11/21/2021 Visit Diagnosis Plan: History of recent pneumonia Disc ussion: Check cbc, cmp, ESR, and cxr now ICD-9 : V12.61 ICD-10 : Z87.01 11/21/2021 Appointment: Latasha Anand WPtel: [phone] [facility] [phone] ACUTE ILLNESS 11/21/2021 Patient Education: Patient Medication Summary Completed 11/21/2021 Visit Diagnosis Plan: Pneumonia Discussion: Finish all abx and continue albuterol Fwup next week ICD-9 : 486 ICD-10 : J18.9 11/09/2021 Visit Diagnosis Plan: Serous otitis media Discussion: Kenalog 40mg with Dexamethasone 2mg IM now ICD-9 : 381.4 ICD-10 : H65.90 11/09/2021 Appointment: Jayna Vanessa WPtel: [address] [place], [place] [phone] Hospital Follow Up 11/09/2021 Visit Diagnosis Plan: Pneumonia Discussion: Admit to h ospital ICD-9 : 486 ICD-10 : J18.9 10/31/2021 Appointment: Jayna Vanessa WPtel: [address] [place], [place] [phone] FOLLOW UP 10/31/2021 Visit Diagnosis Plan: Nausea [...] e prn 10/30/2021 Appointment: Jayna Vanessa WPtel: [address] [place], [place] [phone] ACUTE ILLNESS 10/30/2021 Visit Diagnosis Plan: Cervicalgia Discussion: Had x-ra ys done Kenalog 40mg IM now Baclofen prn Mobic for 1 week Topical muscle rube Moist heat and stretches shown Has PT sessions scheduled next week so will add in therapy for neck ICD-9 : 723.1 ICD-10 : M54.2 09/05/2021 Appointment: Jayna Vanessa WPtel: [address] [place], [place] [phone] ACUTE ILLNESS 09/05/2021 Visit Diagnosis Plan: Arthritis [...] 08/24/2021 Appointment: Latasha Anand WPtel: [phone] [phone] US ACUTE ILLNESS 08/24/2021 Patient Education: Patient Medication Summary Completed 08/24/2021 Patient Education: prednisone- OptimizeRX Coupon [id number] Completed 08/24/2021 Visit Plan: Supportive care. Rest, [...] 07/04/2021 Appointment: Latasha Anand WPtel: [phone] [phone] US ACUTE ILLNESS 07/04/2021 Patient Education: Patient Medication Summary Completed 07/04/2021 Patient Education: Patient Medication Summary Completed 07/04/2021 Appointment: Latasha Anand WPtel: [phone] [phone] US NO SHOW 07/03/2021 Appointment: Latasha Anand WPtel: [phone] [phone] US patients issue resolved so moved to 's schedule for his hospital fw (km) CANCELED 03/29/2021 Appointment: Jayna Vanessa WPtel: [phone] [phone] US INJECTION 03/29/2021 Visit Diagnosis Plan: Vasovagal episode Discussion: Mo nitored in office. Stable, feeling better- sent to [facility] for 1L NS IV, cbc, and cmp. ICD-9 : 780.2 ICD-10 : R55 03/01/2021 Patient Education: Patient Medication Summary Completed 03/01/2021 Visit Diagnosis Plan: Sebaceous cyst of right axilla D iscussion: Pustule/cyst drained- see note. F/U for concerns. ICD-9 : 706.2 ICD-10 : L72.3 02/08/2021 Appointment: Latasha Anand WPtel: [phone] [phone] ACUTE ILLNESS 02/08/2021 Patient Education: Patient Medication Summary Completed 02/08/2021 Visit Diagnosis Plan: Contact dermatitis Discussion: T opical TAC and prednisone Notify if persists or worsens ICD-9 : 692.9 ICD-10 : L25.9 01/19/2021 Appointment: Jayna Vanessa WPtel: [phone] [phone] ACUTE ILLNESS 01/19/2021 Patient Education: prednisone- OptimizeRX Coupon [id number] Completed 01/19/2021 Patient Education: triamcinolone acetonide- OptimizeRX Coupon [phone] Completed 01/19/2021 Visit Diagnosis Plan: Hypothyroidism, unspecified Disc ussion: Increase levothyroxine to 150mcg po daily and recheck TSH and free T4 in 2mos ICD-9 : 244.9 ICD-10 : E03.9 01/03/2021 Visit Diagnosis Plan: Essential (primary) hypertension Discussion: Stable ICD-9 : 401.9 ICD-10 : I10 01/03/2021 Visit Diagnosis Plan: Encounter for [facility] adult medical examination without abnormal findings Discussion: Mediterranean diet Combinati on of cardio and weight bearing exercise Had [employer] vaccines Lab discussed ICD-9 : V70.9 ICD-10 : Z00.00 01/03/2021 Visit Diagnosis Plan: Chronic obstructive pulmonary di sease, unspecified Discussion: Following with pulmonology ICD-9 : 496 ICD-10 : J44.9 01/03/2021 Appointment: Jayna Vanessa WPtel: [phone] [phone] Annual Well Visit 01/03/2021 Patient Education: levothyroxine- OptimizeRX Coupon [id number] https://www.Optini/samplemd/resources/getResource/61/6b987hq0-8pv9-3409-t4 Completed 01/03/2021 Visit Diagnosis Plan: COPD exacerbation Discussion: Sa ivon of cristoi given. Prednisone 40 mg x 5 days for exacerbation- increased cough, shortness of breath, and phlegm. Promethazine DM cough syrup sent d/t frequent hacking cough that interrupts sleep. F/U for no improvement or any concerns. ICD-9 : 491.21 ICD-10 : J44.1 11/29/2020 Appointment: Latasha Anand WPtel: [phone] [phone] ACUTE ILLNESS 11/29/2020 Patient Education: Patient Medication Summary Completed 11/29/2020 Patient Education: prednisone- OptimizeRX Coupon [id number] Completed 11/29/2020 Patient Education: promethazine-DM- OptimizeRX Coupon [id number] Completed 11/29/2020 Visit Diagnosis Plan: Sinusitis Discussion: Will start doxycycline (pcn allergy). Sinus rinses. Tylenol/nsaids for headache/pain. Return to clinicif not improving/concerns. ICD-9 : 473.9 ICD-10 : J32.9 09/29/2020 Appointment: Latasha Anand WPtel: [phone] [phone] ACUTE ILLNESS 09/29/2020 Patient Education: Patient Medication Summary Completed 09/29/2020 Patient Education: doxycycline hyclate- OptimizeRX Coupon [phone] Completed 09/29/2020 Visit Diagnosis Plan: Other seasonal [...] 09/19/2020 Appointment: Latasha Anand WPtel: [phone] [phone] ACUTE ILLNESS 09/19/2020 Patient Education: Patient Medication Summary Completed 09/19/2020 Patient Education: ProAir HFA- OptimizeRX Coupon [id number] Completed 09/19/2020 Visit Diagnosis Plan: Right-sided tinnitus [...] : H93.11 08/10/2020 Appointment: Jayna Vanessa WPtel: [address] [phone] FOLLOW UP 08/10/2020 Patient Education: neomycin-polymyxin B-dexameth- Opti mizeRX Coupon [id number] https://www.Ometrics.Mobyko/samplemd/resources/getResource/61/mm632a45-p06v-9n32-xo Completed 08/10/2020 Visit Diagnosis Plan: Dysfunction of right eustachian tube Discussion: Alma.mo video visit done Increase zyrtec to BID Increase flonase to BID Add prednisone To office at end of week to assess otoscope exam if persists ICD-9 : 381.81 ICD-10 : H69.81 08/01/2020 Appointment: Jayna Vanessa WPtel: [phone] [phone] TELEMEDICINE 08/01/2020 Patient Education: prednisone- OptimizeRX Coupon [phone] https://www.Optini/samplemd/resources/getResource/61/nd6j96n5-5021-5h9r-14 Completed 08/01/2020 Visit Diagnosis Plan: Pyelonephritis Discussion: Hilary daniel all abx Push fluids Check lab and repeat UA in 5 days--CBC, CMP, ESR ICD-9 : 590.80 ICD-10 : N12 07/13/2020 Appointment: Jayna Vanessa WPtel: [facility] [address] Hospital Follow Up 07/13/2020 Visit Diagnosis Plan: Acute gastroenteritis Discussion : Telephone visit completed Clear liquid diet next 24-48hrs Flagyl to cover for colitis/diverticulitis Zofran prn Notify or to ER if worsening ICD-9 : 558.9 ICD-10 : K52.9 07/05/2020 Appointment: Jayna Vanessa WPtel: [phone] TELEMEDICINE 07/05/2020 Patient Education: ondansetron HCl- OptimizeRX Coupon [id number] https://www.Ometrics.Mobyko/samplemd/resources/getResource/61/f0n01mu8-8o8l-332a-2o Completed 07/05/2020 Visit Diagnosis Plan: Metabolic syndrome Discussion: U pdate CMP, HBa1c ICD-9 : 277.7 ICD-10 : E88.81 06/22/2020 Visit Diagnosis Plan: Okbnr-6-gzutwkxrrxq deficiency D iscussion: Following with pulmonology ICD-9 [...] : I10 06/22/2020 Appointment: Jayna Vanessa WPtel: [address] [place], [place] [phone] FOLLOW UP 06/22/2020 Visit Diagnosis Plan: Urinary tract infection Discussi on: Macrobid Diflucan Push water Notify if worsens ICD-9 : 599.0 ICD-10 : N39.0 05/17/2020 Appointment: Jayna Vanessa WPtel: [address] [place], [place] [phone] ACUTE ILLNESS 05/17/2020 Patient Education: fluconazole- OptimizeRX Coupon [phone] https://www.Optini/samplemd/resources/getResource/61/1z4gb3nb-p9h0-2y0v-4u Completed 05/17/2020 Visit Diagnosis Plan: Right pulmonary embolus Discussi on: Continue eliquis at 5mg po BID Has appointments pending with pulmonology and hematology Fwup after visits with both of these specialists ICD-9 : 415.19 ICD-10 : I26.99 03/14/2020 Appointment: Jayna Vanessa WPtel: [address] [place], [place] [phone] LM 03/14/20 on cell -- home phone had busy signal Hospital Follow Up 03/14/2020 Appointment: Jayna Vanessa WPtel: [address] [place], [place] [phone] I schedule patient by mistake ddo Scheduled [...] : R06.00 03/07/2020 Appointment: Jayna Vanessa WPtel: [address] [phone] ACUTE ILLNESS 03/07/2020 Care Plan: CT THORAX W/DYE LOINC : 08712 -6 Pending 03/07/2020 Appointment: Jayna Vanessa WPtel: [address] [phone] NO SHOW - FORGIVEN 03/02/2020 Visit Diagnosis Plan: Upper respiratory infection Disc ussion: patient's covid test was neg from several weeks ago. proair refilled to take as needed. medrol pack prescribed to cover for allergies since her symptoms began after being in [facility]. however, instructed patient that she needs to be checked again for coronavirus due to severity of her symptoms. patient lives near [place] so informed her to go to [facility] in for testing. call ofice with new or worsening symptoms, otherwise push fluids. ICD-9 : 465.9 ICD-10 : J06.9 02/11/2020 Appointment: Genesis Fernández [address] TELEMEDICINE 02/11/2020 Patient Education: ProAir HFA- OptimizeRX Coupon [phone] Completed 02/11/2020 Patient Education: Medrol (Isaiah)- OptimizeRX Coupon [id number] Completed 02/11/2020 Visit Diagnosis Plan: Hypothyroidism, unspecified [...] I10 12/21/2019 Visit Diagnosis Plan: Encounter for [facility] adult medical examination without abnormal findings Discussion: Mediterranean diet Combinati on of cardio and weight bearing exercise Lab discussed Last colonoscopy 3 years ago ICD-9 : V70.9 ICD-10 : Z00.00 12/21/2019 Appointment: Jayna Vanessatel: [address] [phone] Annual Well Visit 12/21/2019 Care Plan: Referral Order SNOMED-CT : 30 [id number] Pending 12/21/2019 Visit Diagnosis Plan: Dermatitis Discussion: Doxy.me v ideo visit done Cover with Prednisone taper Use Zyrtec 10mg po q AM BID ICD-9 : 692.9 ICD-10 : L30.9 09/29/2019 Appointment: Jayna Vanessa WPtel: [address] [place], [place] [phone] TELEMEDICINE 09/29/2019 Patient Education: prednisone- OptimizeRX Coupon [phone] https://www.Optini/samplemd/resources/getResource/61/47b98w25-5x70-5c20-1n Completed 09/29/2019 Visit Diagnosis Plan: Bone spur [...] : N39.0 09/14/2019 Appointment: Jayna Vanessa WPtel: [address] [place], [place] [phone] US TELEMEDICINE 09/14/2019 Appointment: Jayna Vanessa WPtel: [address] [place], [place] [phone] US LAB 09/11/2019 Appointment: Jayna Vanessa WPtel: [address] [phone] 09/09/2019 1210--per Ally patient was to only have 1 injection, reculture urine on 09/11/19 (km) CANCELED 09/09/2019 Appointment: Jayna Vanessa WPtel: [address] [phone] US INJECTION 09/08/2019 Appointment: Jayna Vanessa WPtel: [address] [phone] US INJECTION 09/07/2019 Visit Diagnosis Plan: Urinary [...] ICD-10 : R35.0 09/02/2019 Appointment: Genesis Fernández [address] [place] [address] ACUTE ILLNESS 09/02/2019 Visit Diagnosis Plan: Sinusitis Discussion: instructed to start flonase daily and zyrtec daily. if no improvement next week, call clinic and may need further directions. instructed to use saline eye drops as needed to eyes to assist with dryness. ICD-9 : 473.9 ICD-10 : J32.9 07/09/2019 Appointment: Genesis Fernández [address] [place] [address] ACUTE ILLNESS 07/09/2019 Visit Diagnosis Plan: UTI (urinary tract infection) Di scussion: urine culture sent off. will start on macrobid due to symptoms. instructed to push fluids and chemo tomorrow with worsening symptoms. ICD-9 : 599.0 ICD-10 : N39.0 04/15/2019 Appointment: Jayna Vanessa WPtel: [address] [phone] US INJECTION 04/15/2019 Appointment: Genesis Fernández [address] [place] [address] ACUTE ILLNESS 04/15/2019 Visit Diagnosis Plan: Pain in right leg Discussion: ke nalog/dexa given in office. continue with flexeril prn. PT was ordered for patient due to chronic issues. call office with worsening symptoms and may need imaging. ICD-9 : 729.5 ICD-10 : M79.604 04/07/2019 Appointment: Jolene Genesis Frankel [address] [place], [place] [address]a [address] ACUTE ILLNESS 04/07/2019 Visit Diagnosis Plan: Diverticulitis of large intestine without perforation or abscess without bleeding Discussion: Patient will call when she g ets home and verify which antibiotics she has left--needs at least another week on flagyl and thinks she only took 1 week on that ICD-9 : 562.11 ICD-10 : K57.32 03/25/2019 Appointment: Jayna Vanessa WPtel: [address] [phone] FOLLOW UP 03/25/2019 Visit Diagnosis Plan: Cystitis Discussion: Bactrim and culture urine ICD-9 : 595.9 ICD-10 : N30.90 03/18/2019 Visit Diagnosis Plan: Abdominal pain Discussion: Cover with flagyl for colitis [place] diet To ER this weekend if worsening Fwup 1 week ICD-9 : 789.00 ICD-10 : R10.9 03/18/2019 Appointment: Jayna Vanessa WPtel: [phone] [phone] ACUTE ILLNESS 03/18/2019 Visit Diagnosis Plan: Urinary [...] ICD-10 : R10.84 01/26/2019 Appointment: Genesis Fernández [address] [place], [place] [phone] ACUTE ILLNESS 01/26/2019 Appointment: Jayan Vanessa WPtel: [address] [place], [place] [phone] CANCELED 01/12/2019 Visit Diagnosis Plan: Mild intermittent asthma with (a cute) exacerbation Discussion: Kenalog 40mg IM now Prednisone stating tomorrow Start Doxycycline tonight Continue SVNs with duoneb q4hrs To ER this if worsening Call Saturday on how doing ICD-9 : 466.0 ICD-10 : J45.21 01/08/2019 Appointment: Jayna Vanessa WPtel: [address] [place], [place] [phone] FOLLOW UP 01/08/2019 Patient Education: prednisone- OptimizeRX Coupon [phone] https://www.Optini/Ometrics/resources/getResource/61/80112032-q3mv-5833-84 Completed 01/08/2019 Visit Diagnosis Plan: Mild intermittent asthma with (a cute) exacerbation Discussion: Solumedrol 125mg IM SVN with duoneb given Continue albuterol q4hrs CXR now Recheck tomorrow ICD-9 : 466.0 ICD-10 : J45.21 01/06/2019 Appointment: Jayna Vanessa WPtel: [address] [phone] ACUTE ILLNESS 01/06/2019 Visit Diagnosis Plan: Encounter for screening for roel gnant neoplasm of colon Discussion: positive for ob. will order ct abd/pelvis due to other findings and discussed with patient that may need to proceed with updated colonoscopy. patient verbalized understanding. ICD-9 : V76.51 ICD-10 : Z12.11 12/11/2018 Visit Diagnosis Plan: Encounter for gene [facility] adult medical examination with abnormal findings Discussion: [...] ICD-10 : N76.0 12/11/2018 Appointment: Genesis Fernández [address] [place] [address] Annual Well Visit 12/11/2018 Care Plan: RML ASSAY THYROID STIM HORMONE Pending 12/04/2018 Care Plan: RML ASSAY OF FREE THYROXINE Pe nding 12/04/2018 Care Plan: RML A1C HPLC LOINC : 79419-8 Pending 12/04/2018 Care Plan: RML LIPID PANEL LOINC : 09192 -1 Pending 12/04/2018 Care Plan: RML COMPREHEN METABOLIC PANEL LOINC : 78833-5 Pending 12/04/2018 Care Plan: QUEST CBC (INCLUDES DIFF/PLT) LOINC : 29718-7 Pending 12/04/2018 Visit Diagnosis Plan: Benign paroxysmal vertigo, bilat eral Discussion: Meclizine Vestibular Exercises To ER if worsens or develops neurological symptoms or will need CT scan if persists/worsens ICD-9 : 386.11 ICD-10 : H81.13 10/30/2018 Appointment: Jayna Vanessa WPtel: [phone] US ACUTE ILLNESS 10/30/2018 Patient Education: VESTIBULAR EXCERCISES Completed 10/30/2018 Patient Education: meclizine- OptimizeRX Coupon [id number] Completed 10/30/2018 Appointment: Jayna Vanessa WPtel: [phone] US canceled due to [place] going into [...] J20.9 10/07/2018 Visit Diagnosis Plan: Cough Discussion: Tessalon perle s- as needed for cough ICD-9 : 786.2 ICD-10 : R05 10/07/2018 Appointment: Stacey Feng [address] [place] [address] ACUTE ILLNESS 10/07/2018 Patient Education: doxycycline hyclate- [employer] [facility] [phone] [email or web address] Completed 10/07/2018 Care Plan: RML ASSAY OF [...] 733.90 ICD-10 : M85.80 06/23/2018 Appointment: Jayna Vansesa WPtel: [address] [place], [place] [phone] FOLLOW UP 06/23/2018 Appointment: Jayna Vanessa WPtel: [address] [place], [place] [phone] ER Follow UP 01/27/2018 Visit Diagnosis Plan: Hypothyroidism, unspecified Disc ussion: Lab discussed Increase Levothyroxine to 175mcg daily then recheck level in 6 weeks Follow Up: 6 weeks ICD-9 : 244.9 ICD-10 : E03.9 01/16/2018 Visit Diagnosis Plan: Mixed hyperlipidemia Discussion: Defers statin meds ICD-9 : 272.4 ICD-10 : E78.2 01/16/2018 Appointment: Jayna Vanessa WPtel: [address] [place], [place] [phone] FOLLOW UP 01/16/2018 Patient Education: Patient Medication Summary Completed 01/16/2018 Patient Education: Patient Medication Summary Completed 01/15/2018 Care Plan: RML COMPREHEN METABOLIC PANEL LOINC : 47146-7 Pending 01/15/2018 Care Plan: RML ASSAY THYROID STIM HORMONE Pending 01/15/2018 Care Plan: RML ASSAY OF FREE THYROXINE Pe nding 01/15/2018 Care Plan: RML LIPID PANEL LOINC : 18208 -1 Pending 01/15/2018 Care Plan: CBC Pending 01/15/2018 Care Plan: RML A1C HPLC LOINC : 52186-1 Pending 01/15/2018 Appointment: Jayna Vanessa WPtel: [address] [place], [place] [phone] US CANCELED 12/26/2017 Appointment: Jayna Vanessa WPtel: [address] [place], [place] [phone] US CANCELED 10/28/2017 Visit Diagnosis Plan: Cervicalgia Discussion: xray ord ered of cervical spine and right shoulder. 40 mg kenalog/15 mg toradol prescribed to assist with pain. medrol dose pack prescribed to start tomorrow. instructed patient that if she d evelops worsening pain or no improvement, call or rtc. ICD-9 : 723.1 ICD-10 : M54.2 10/16/2017 Appointment: Genesis Fernández [address] [place] [address] ACUTE ILLNESS 10/16/2017 Patient Education: Patient Medication Summary Completed 10/16/2017 Care Plan: X-RAY EXAM NECK SPINE 4/5VWS cervical LOINC : 85322-0 Pending 10/16/2017 Visit Diagnosis Plan: Headache Discussion: Stat CT of head Dilated eye exam ICD-9 : 784.0 ICD-10 : R51 09/12/2017 Visit Diagnosis Plan: Dizziness and giddiness Discussi on: Check CBC,TSH, Free T4 now ICD-9 : 780.4 ICD-10 : R42 09/12/2017 Appointment: Jayna Vanessa WPtel: [address] [place], [place] [phone] ACUTE ILLNESS 09/12/2017 Patient Education: Patient Medication Summary Completed 09/12/2017 Care Plan: CT HEAD/BRAIN W/O DYE LOINC : 05350-4 Pending 09/12/2017 Visit Diagnosis Plan: Cough Discussion: discussed cxra y and sputum results with patient and how they are negative for bacteria. patient restarted on her PPI to cover possiblity of GERD causing cough. 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 rtc with any new or worsening symptoms but continue with inhaler and nebulizer treatments as needed. ICD-9 : 786.2 ICD-10 : R05 08/20/2017 Appointment: Genesis Fernández [address] [place] [address] FOLLOW UP 08/20/2017 Patient Education: Patient Medication Summary Completed 08/20/2017 Visit Diagnosis Plan: COUGH Discussion: Check stat CXR Check Sputum culture ICD-9 : 786.2 ICD-10 : R05 08/13/2017 Appointment: Jayna Vanessa WPtel: [phone] ACUTE ILLNESS 08/13/2017 Patient Education: Patient Medication Summary Completed 08/13/2017 Visit Plan: Supportive care. Rest, Fluid s, Tylenol/Motrin prn fever or bodyaches. Notify if worsening symptoms. 07/29/2017 Visit Diagnosis Plan: Acute bronchospasm Discussion: T relagy 1p daily Proair 2p TID Rest/Fluids Tessalon Tiffany ICD-9 : 519.11 ICD-10 : J98.01 07/29/2017 Visit NOS Plan: Plan Notes: Supportive care. Rest, Fluids... 07/29/2017 Appointment: Jayna Vanessa WPtel: [address] [place], [place] [phone] ACUTE ILLNESS 07/29/2017 Patient Education: Patient Medication [...] ICD-10 : J09.X2 07/25/2017 Appointment: Genesis Fernández [address] [place] [address] ACUTE ILLNESS 07/25/2017 Patient Education: Patient Medication [...] : M25.50 06/10/2017 Appointment: Jayna Vanessa WPtel: [address] [place], [place] [phone] ACUTE ILLNESS 06/10/2017 Patient Education: Patient Medication Summary Completed 06/10/2017 Appointment: Jayna Vanessa WPtel: [address] [place], [place] [phone] US Does not need appointment CANCELED 2016 Appointment: Jayna Vanessa WPtel: [address] [place], [place] [phone] US CANCELED 05/30/2017 Visit Diagnosis Plan: Acute bronchitis, unspecified Di scussion: prednisone, zpack and tessalon perles prescribed to assist with symptoms. call or RTC if no improvement. humidifier at night. hydrate well and rest. discussed side effects from prednisone including increased blood sugars and instructed to monitor. ICD-9 : 490 ICD-10 : J20.9 05/28/2017 Appointment: Genesis Fernández [address] [place], [place] [id number] ACUTE ILLNESS 05/28/2017 Patient Education: Patient Medication Summary Completed 05/28/2017 Visit Diagnosis Plan: Type 2 diabetes mellitus without complications Discussion: Continue current meds accuchecks daily ICD-9 : 250.00 ICD-10 : E11.9 04/04/2017 Visit Diagnosis Plan: Encounter for [facility] adult medical examination without abnormal findings Discussion: Flu and Pneumovax given Mamm ogram ordered Lab discussed ICD-9 : V70.9 ICD-10 : Z00.00 04/04/2017 Appointment: Jayna Vanessa WPtel: [phone] [phone] Annual Well Visit 04/04/2017 Patient Education: Patient Medication Summary Completed 04/04/2017 Care Plan: MAMMOGRAM SCREENING LOINC : 2 6347-5 Pending 04/04/2017 Patient Education: Patient Medication Summary Completed 03/21/2017 Care Plan: RML COMPREHEN METABOLIC PANEL LOINC : 21137-7 Pending 03/21/2017 Care Plan: RML ASSAY THYROID STIM HORMONE Pending 03/21/2017 Care Plan: RML ASSAY OF FREE THYROXINE Pe nding 03/21/2017 Care Plan: CBC Pending 03/21/2017 Care Plan: RML A1C HPLC LOINC : 41249-7 Pending 03/21/2017 Visit Diagnosis Plan: Mixed hyperlipidemia Discussion: Continue current meds Follow Up: 6 months ICD-9 : 272.4 ICD-10 : E78.2 11/28/2016 Visit Diagnosis Plan: Hypothyroidism, unspecified Disc ussion: Continue current dose ICD-9 : 244.9 ICD-10 : E03.9 11/28/2016 Visit Diagnosis 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 / rang and rang on home phone and mobile confirmed~sl FOLLOW UP 11/28/2016 Patient Education: Patient Medication Summary Completed 11/28/2016 Patient Education: Patient Medication Summary Completed 11/20/2016 Referral: Tom Mcrae WPtel: [address] [facility] [phone] [id number] US Referral Initiated 07/05/2016 Visit Plan: Start with CT abdomen/pelvis Will need EGD and Colonoscopy so will refer to Dr. Pina Obtain most recent lab results 06/05/2016 Appointment: Jayna Vanessa WPtel: [phone] [phone] ACUTE ILLNESS 06/05/2016 Patient Education: Patient Medication Summary Completed 06/05/2016 Care Plan: CT PELVIS W/O DYE LOINC : 361 08-9 Pending 06/05/2016 Care Plan: CT ABDOMEN W/O DYE LOINC : 36 103-0 Pending 06/05/2016 Care Plan: Referral Order SNOMED-CT : [id number] Pending 06/05/2016 Appointment: Jayna Vanessa WPtel: [phone] [phone] US INJECTION 05/01/2016 Patient Education: Patient Medication Summary Completed 05/01/2016 Patient Education: Patient Medication Summary Completed 04/26/2016 Care Plan: RML COMPREHEN METABOLIC PANEL LOINC : 34719-8 Pending 04/26/2016 Care Plan: RML ASSAY THYROID STIM HORMONE Pending 04/26/2016 Care Plan: RML ASSAY OF FREE THYROXINE Pe nding 04/26/2016 Care Plan: RML A1C HPLC LOINC : 61642-4 Pending 04/26/2016 Referral: Aditya Stone WPtel: [address] [id number] Arrival time is 10:00 Am~sl Appointment Confirme d 11/25/2015 Visit Plan: Had fasting lab done this AM Continue PT for right shoulder Continue current meds Referral to Dr. Temo Stone for incontinence 11/08/2015 Appointment: Jayna Vanessa WPtel: [facility]7 [phone] 11/06 confirmed-sp FOLLOW UP 11/08/2015 Patient Education: Patient Medication Summary Completed 11/08/2015 Appointment: Jayna Vanessa WPtel: [address] [place], [place] [phone] 10/19 rescheduled ~sl RESCHEDULED 10/24/2015 Appointment: Jayna Vanessa WPtel: [address] [place], [place] [phone] 10/10rang and rang ~sl RESCHEDULED 6 Patient Education: Patient Medication Summary Completed 10/12/2015 Care Plan: RML COMPREHEN METABOLIC PANEL LOINC : 06182-2 Pending 10/12/2015 Care Plan: RML ASSAY THYROID STIM HORMONE Pending 10/12/2015 Care Plan: RML ASSAY OF FREE THYROXINE Pe nding 10/12/2015 Care Plan: RML LIPID PANEL LOINC : 76080 -1 Pending 10/12/2015 Care Plan: CBC Pending 10/12/2015 Care Plan: RML A1C HPLC LOINC : 25191-7 Pending 10/12/2015 Care Plan: VITAMIN D TOTAL (25 HYDROXY) P ending 10/12/2015 Appointment: Jayna Vanessa WPtel: [address] [place], [place] [phone] US CANCELED 09/22/2015 Visit Plan: Lab discussed Change thyroid med back to brand synthroid and recheck thyroid lab in 3mos 07/19/2015 Appointment: Jayna Vanessa WPtel: [facility]4 [phone] 07/18/15 appt confirmed cn FOLLOW UP 07/19 Patient Education: Patient Medication Summary Completed 07/19/2015 Patient Education: Patient Medication Summary Completed 07/12/2015 Visit Plan: Lab discussed Change synthro id to 150mcg all days but M, W, F will change to 175mcg Check Lab and fwup in 3mos Flu shot given 03/28/2015 Appointment: Jayna Vanessa WPtel: [address] [place], [place] [phone] 03/25 rang for 1:40 seconds 03/28/ appt confirmed cn FOLLOW UP 03/28/2015 Patient Education: Patient Medication Summary Completed 03/28/2015 Patient Education: Patient Medication Summary Completed 03/21/2015 Visit Plan: Continuue fluoxetine at high er dose Increase synthroid to 150mcg as ordered Decrease propranolol to 20mg po BID Check thyroid lab and fwup in 2mos Prevnar 13 given 02/08/2015 Appointment: Jayna Vanessa WPtel: [address] [place], [place] [phone] US FOLLOW UP 02/08/2015 Patient Education: Patient Medication Summary Completed 02/08/2015 Visit Plan: Check CBC, CMP, TSH, Free T4 , uric acid, lactate now Increase fluoxetine to 40mg daily Recheck in 1month Notify if worsening Culture urine 01/11/2015 Appointment: Jayna Vanessa WPtel: [address] [place], [place] [phone] ACUTE ILLNESS 01/11/2015 Patient Education: Patient Medication Summary Completed 01/11/2015 Visit Plan: Lab discussed Accuchecks lucian ly Medrol dose pack Rx for back brace 11/24/2014 Appointment: Jayna Vanessa WPtel: [address] [place], [place] [phone] 11/23 confirmed -mf FOLLOW UP 11/24/2014 Patient Education: Patient Medication Summary Completed 11/24/2014 Appointment: Galina Leos WPtel: [facility]7 [facility] ER Follow UP 11/19/2014 Patient Education: Patient Medication Summary Completed 11/19/2014 Appointment: Conchita Capone [facility]Ptel: [phone] [facility] AC[facility] ILL[facility] 10/27/2014 Patient Education: Patient Medication Summary Completed 10/27/2014 Patient Education: [facility] - Saving AutoInj - 18+ - Dynamic Portal ID Completed 10/27/2014 Appointment: Conchita Capone WPtel: [address] [place], [place] [phone] ACUTE ILLNESS 09/23/2014 Patient Education: Patient Medication Summary Completed 09/23/2014 Visit Plan: Lab discussed Continue curre nt meds 07/28/2014 Appointment: Jayna Vanessa WPtel: [address] [place], [place] [phone] 07/27 FOLLOW UP 07/28/2014 Patient Education: Patient Medication Summary Completed 07/28/2014 Patient Education: Patient Medication Summary Completed 07/21/2014 Patient Education: Patient Medication Summary Completed 04/27/2014 Appointment: Jayna Vanessa WPtel: [address] [place], [place] [phone] 03/29 FOLLOW UP 03/30/2014 Patient Education: Patient Medication Summary Completed 03/30/2014 Patient Education: [facility] - Saving AutoInj - 18+ - Dynamic Portal ID Completed 03/30/2014 Visit Plan: Lab discussed DC Vytorin Tri al of Lipitor 80mg q HS Continue Trilipix Check Lipids/CMP/thyroid and HbA1C in 4mos then fwup 11/24/2013 Appointment: Jayna Vanessa WPtel: [address] [place], [place] [phone] FOLLOW UP 11/24/2013 Patient Education: Patient Medication Summary Completed 11/24/2013 Patient Education: [facility] - Saving AutoInj - 18+ - Dynamic Portal ID Completed 11/24/2013 Visit Plan: Lab discussed Daily accuchec ks Cont current meds 08/25/2013 Appointment: Jayna Vanessa WPtel: [facility]2 [phone] 08/24 FOLLOW UP 08/25/2013 Patient Education: Patient Medication Summary Completed 08/25/2013 Appointment: Jayna Vanessa WPtel: [address] [place], [place] [phone] FOLLOW UP 08/05/2013 Visit Plan: Continue Wellbutrin/Fluoxeti ne Fasting lab and fwup in 2mos 06/29/2013 Appointment: Jayna Vanessa WPtel: [address] [place], [place] [phone] 06/26 [facility] FOLLOW UP 06/29/2013 Patient Education: Patient Medication Summary Completed 06/29/2013 Visit Plan: Increase Wellbutrin to 300mg daily Add fluoxetine 20mg daily 05/26/2013 Appointment: Jayna Vanessa WPtel: [address] [place], [place] [phone] FOLLOW UP 05/26/2013 Patient Education: Patient Medication Summary Completed 05/26/2013 Visit Plan: OK to proceed with planned s [facility] surgery next week Continue current meds Check fasting lab--CBC, CMP, TSH, free T4, HbA1C, Lipids, Vit D at end of this week prior to surgery 05/06/2013 Appointment: Jayna Vanessa WPtel: [address] [place], [place] [phone] FOLLOW UP 05/06/2013 Patient Education: Patient Medication Summary Completed 05/06/2013 Appointment: Jayna Vanessa WPtel: [address] [place], [place] [phone] ACUTE ILLNESS 04/23/2013 Patient Education: Patient Medication Summary Completed 04/23/2013 Patient Education: [facility] - Saving AutoInj - 18+ - Dynamic Portal ID Completed 04/23/2013 Visit Plan: Decrease Lasix to 20mg daily Leave potassium at 20meq daily Check Chem 7 in 1wk 03/31/2013 Appointment: Jayna Vanessa WPtel: [address] [place], [place] [phone] FOLLOW UP 03/31/2013 Patient Education: Patient Medication Summary Completed 03/31/2013 Appointment: Liborio Conchita M WPtel: [address] [place], [place] [phone] ACUTE ILLNESS 03/05/2013 Patient Education: Patient Medication Summary Completed 03/05/2013 Visit Plan: Lab discussed Continue curre nt meds Pt is going to start allergy injections Go for port placement to continue prolastin infusions 02/04/2013 Appointment: Jayna Vanessa WPtel: [address] [place], [place] [phone] ACUTE ILLNESS 02/04/2013 Patient Education: Patient Medication Summary Completed 02/04/2013 Visit Plan: 2-D ECHO discussed See Pulmo nology Pt states cough had went away with allergy meds and then has came back Continue allergy meds and add pepcid BID Discussed allergy testing 11/27/2012 Appointment: Jayna Vanessa WPtel: [address] [place], [place] [phone] FOLLOW UP 11/27/2012 Patient Education: Patient Medication Summary Completed 11/27/2012 Visit Plan: PFTS discussed Proceed with 2-D ECHO and pulmonology evaluation Pt was concerned propranolol could be cause but discussed this is likely not culpri HOMERO was DCed in 2009, is on PPI, has seen ENT, will restart allergy meds--may need allergy testing 11/11/2012 Appointment: Jayna Vanessa WPtel: [address] [place], [place] [phone] FOLLOW UP 11/11/2012 Patient Education: Patient Medication Summary Completed 11/11/2012 Visit Plan: Hold metformin Check CMP, Li pids, TSH, Free T4, HbA1C Check PFTs 10/20/2012 Appointment: Jayna Vanessa WPtel: [address] [place], [place] [phone] 10/17 left message FOLLOW UP 10/20/2012 Patient Education: Patient Medication Summary Completed 10/20/2012 Appointment: Jayna Vanessa [facility]Ptel: [phone] [phone] 10/13 FOLLOW UP 10/14/2012 Visit Plan: Discussed fluids and rest. W ill monitor for worsening symptoms/fever. Azithromycin, medrol dose pack and refil on cough syrup. Pt. will notify if symptoms worsen or persist. 09/03/2012 Appointment: Lizzie Kelly WPtel: [address] [place], [place] [phone] ACUTE ILLNESS 09/03/2012 Patient Education: Patient Medication Summary Completed 09/03/2012 Visit Plan: discussed that symptoms star edvin around Lion time. Will begin culturelle BID and monitor for fever or worsening symptoms. Fluid intake important. CBC, CMP, sed rate and stool studies. Order written for Mag lab. 07/23/2012 Appointment: Lizzie Kelly WPtel: [address] [place], [place] [phone] ACUTE ILLNESS 07/23/2012 Patient Education: Patient Medication Summary Completed 07/23/2012 Visit Plan: Increase Metformin to 1000mg po BID Accuchecks daily Continue rest of meds at current dose and low-fat, low-sugar diet with increased exercise Check fasting lab in 4mos Restart Nexium 05/20/2012 Appointment: Jayna Vanessa WPtel: [address] [place], [place] [phone] patient had bad night so missed 05/06 appt...left voicemail 05/19 FOLLOW UP 05/20/2012 Patient Education: Patient Medication Summary Completed 05/20/2012 Appointment: Jayna Vanessa WPtel: [address] [place], [place] [phone] patient had bad night so missed 05/06 appt time. cn FOLLOW UP 05/06/2012 Appointment: Galina Leos WPtel: [address] [place], [place] [phone] ACUTE ILLNESS 04/04/2012 Patient Education: Patient Medication Summary Completed 04/04/2012 Visit Plan: Cryotherapy as above 02/20/2012 Appointment: Jayna Vanessa WPtel: [address] [place], [place] [phone] 02/18 OFFICE SURGERY 02/20/2012 Patient Education: Patient Medication Summary Completed 02/20/2012 Visit Plan: Increase Metfromin to 1000mg daily Continue all other current meds 01/02/2012 Appointment: Jayna Vanessa WPtel: [address] [place] [address] FOLLOW UP 01/02/2012 Patient Education: Patient Medication Summary Completed 01/02/2012 Appointment: Lizzie Kelly WPtel: [address] [place] [address] ACUTE ILLNESS 09/04/2011 Patient Education: Patient Medication Summary Completed 09/04/2011 Visit Plan: Finish Keflex Proceed with c olonoscopy Increase aspirin to 325mg daily for next 2wks Add Vimovo 20/500mg po Daily 08/14/2011 Appointment: Jayna Vanessa WPtel: [address] [place], [place] [phone] Hospital Follow Up 08/14/2011 Patient Education: Patient Medication Summary Completed 08/14/2011 Appointment: Lizzie Kelly WPtel: [address] [place], [place] [id number] ACUTE ILLNESS 07/31/2011 Patient Education: Patient Medication Summary Completed 07/31/2011 Visit Plan: Doxy and steroids. Codeine/g uiaf cough syrup. Pt. will monitor for worsening symptoms and notify if fever occurs. Encouraged rest and fluids. 07/25/2011 Appointment: Lizzie Kelly WPtel: [address] [place] [address] ACUTE ILLNESS 07/25/2011 Patient Education: Patient Medication Summary Completed 07/25/2011 Visit Plan: Check full lab in 3mos Radha nue with all current meds Continue PT for knee 07/12/2011 Appointment: Jayna Vanessa WPtel: [address] [place], [place] [phone] FOLLOW UP 07/12/2011 Patient Education: Patient Medication Summary Completed 07/12/2011 Visit Plan: Continue symbicort for 2 mor e weeks 05/09/2011 Appointment: Jayna Vanessa WPtel: [address] [place], [place] [phone] FOLLOW UP 05/09/2011 Patient Education: Patient Medication Summary Completed 05/09/2011 Appointment: Jayna Vanessa WPtel: [address] [place], [place] [phone] ER Follow UP 05/02/2011 Patient Education: Patient Medication Summary Completed 05/02/2011 Visit Plan: Pt. has recently finished ro und of Cefdinir with no improvement. Chest x-ray, CBC, CMP and mycoplasma order given to pt. Pt. will start Doxycycline. 04/25/2011 Appointment: Lizzie Kelly WPtel: [address] [place], [place] [phone] FOLLOW UP 04/25/2011 Patient Education: Patient Medication Summary Completed 04/25/2011 Appointment: Lizzie Kelly WPtel: [address] [place] [address] ACUTE ILLNESS 04/04/2011 Patient Education: Patient Medication Summary Completed 04/04/2011 Appointment: Lizzie Kelly WPtel: [address] [place] [address] ACUTE ILLNESS 04/03/2011 Visit Plan: Decrease Synthroid to 150mcg daily Repeat TSH and Free T4 in 2mos Knee injection as above 03/01/2011 Appointment: Jayna Vanessa WPtel: [address] [place], [place] [phone] 03/01/2011 Patient Education: Patient Medication Summary Completed 03/01/2011 Visit Plan: Increase Synthroid to 175mcg po daily Check TSH, Free T4 in 8wks Injection given to knee as above Continue Pt 01/04/2011 Appointment: Jayna Vanessa WPtel: [address] [place], [place] [phone] FOLLOW UP 01/04/2011 Patient Education: Patient Medication Summary Completed 01/04/2011 Visit Plan: Septra DS, Mupirocin topical . Pt. will observe wound and report worsening symptoms. 12/07/2010 Appointment: Lizzie Kelly WPtel: [address] [place], [place] [phone] ACUTE ILLNESS 12/07/2010 Patient Education: Patient Medication Summary Completed 12/07/2010 Visit Plan: Increase Synthroid to 150mcg po daily Add Metformin Diet and exercise discussed at length again Repeat thyroid US Add Vit D level Will see if polydipsia improves with metformin 10/09/2010 Appointment: Jayna Vanessa WPtel: [address] [place], [place] [phone] FOLLOW UP 10/09/2010 Patient Education: Patient Medication Summary Completed 10/09/2010 Visit Plan: Increase Synthroid to 125mcg daily Decrease Vit D 50,000 u three times a week Discussed HRT Proceed with sleep study Fwup pending sleep study results 08/07/2010 Appointment: Jayna Vanessa WPtel: [address] [place], [place] [phone] FOLLOW UP 08/07/2010 Patient Education: Patient Medication Summary Completed 08/07/2010 Visit Plan: Decrease Synthroid to 100mcg QD Check thyroid lab in 2mos Check estradiol levels in 2mos--discussed HRT Increase Vit D 50,000u to 1 daily M-F 06/06/2010 Appointment: Jayna Vanessa WPtel: [address] [place], [place] [phone] ACUTE ILLNESS 06/06/2010 Patient Education: Patient Medication Summary Completed 06/06/2010 Visit Plan: Injections to knees as above 04/12/2010 Appointment: Jayna Vanessa WPtel: [address] [place], [place] [phone] OFFICE SURGERY 04/12/2010 Patient Education: Patient Medication Summary Completed 04/12/2010 Visit Plan: Decrease Synthroid to 175mcg QD Check lab in 2mos Change daily Vit D to weekly 03/20/2010 Appointment: Jayna Vanessa WPtel: [address] [place], [place] [phone] ESTABLISHED PATIENT 03/20/2010 Patient Education: Patient Medication Summary Completed 03/20/2010 Appointment: Jayna Vanessa WPtel: [address] [place] [phone] ACUTE ILLNESS 01/30/2010 Patient Education: Patient Medication Summary Completed 01/30/2010 Appointment: Jayna Vanessa WPtel: [address] [place], [place] [phone] ACUTE ILLNESS 01/09/2010 Patient Education: Patient Medication Summary Completed 01/09/2010 Appointment: Jayna Vanessa WPtel: [address] [place], [place] [phone] BP CHECK 11/07/2009 Patient Education: Patient Medication Summary Completed 11/07/2009 Appointment: Jayna Vanessa WPtel: [address] [place], [place] [phone] OFFICE SURGERY 10/26/2009 Patient Education: Patient Medication Summary Completed 10/26/2009 Appointment: Lizzie Kelly WPtel: [address] [place], [place] [phone] OFFICE SURGERY 10/17/2009 Patient Education: Patient Medication [...] up appnt. 10/04/2009 Appointment: Lizzie Kelly WPtel: [address] [place], [place] [phone] ACUTE ILLNESS 10/04/2009 Patient Education: Patient Medication Summary Completed 10/04/2009 Visit Plan: E-scribed refils. Pt. report s that she normally has lab work drawn and orders are given (faxed) to her normal lab facility by Patricia. Pt. states her migraine headaches have abated for now and that she is going to see her migraine doctor in [place] in the near future(Dr Cook) Pt will seek re-eval as necessary for acute issues. 09/21/2009 Appointment: Lizzie Kelly WPtel: [id number] [place], [place] [phone] [place] CHECK UP 09/21/2009 Patient Education: Patient Medication Summary Completed 09/21/2009 Appointment: Lizzie Kelly WPtel: [address] [place], [place] [phone] [place] CHECK UP 09/20/2009 Appointment: Lizzie Kelly WPtel: [address] [place], [place] [phone] [place] FOLLOW UP 09/19/2009 Referral: Alf Lang WPtel: [address] [id number] [place] Referral Appointment Requested Referral: Singh Pina WPtel: [address] [facility] [place] Referral Appointment Requested Referral: Aditya Stone WPtel: [address] [place] Referral Appointment Requested Instructions Comment Date [...] brand synthroid and recheck thyroid lab in 3mos 07/19/2015 . Lab discussed Change synthroid to [...] but discussed this is likely not culpri HOMERO was DCed in 2009, is on PPI, [...] . Septra DS, Mupirocin topical. Pt. fei mccoy observe wound and report worsening symptoms. 12/07/2010 [...] 10/04/2009 . E-scribed refils. Pt. reports that martha normally has lab work drawn and orders are given (faxed) to her normal lab facility by Patricia. Pt. states her migraine headaches have abated for now and that she is going to see her migraine doctor in [place] in the near future(Dr Cook) Pt will [...]
--- OUTSIDE RECORDS SUMMARY | 2022-09-10 17:01 | XMS REPORT | CCD ---
Author Author Marcella Vanessa D.O. 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 Name Role Phone Jayna Vanessa D.O., PP Unavailable CCM Unavailable Summary Purpose Interface Exchange Insurance Providers Payer name Policy type / Coverage type Covered libertarian ID Effective Begin Date Effective End Date [employer] Commercial Insurance [id number] Unknown Commercial Insurance [id number] Unknown Family history Side Diagnosis Age At Onset Heart disease Unknown Diabetes Unknown Sister Diagnosis Age At Onset Diabetes Unknown Brother Diagnosis Age At Onset Diabetes Unknown Mother Diagnosis Age At Onset Heart disease Unknown Father Diagnosis Age At Onset Heart disease Unknown Social History Social History Element Codes Description Effective Dates Tobacco history SNOMED CT: 137463433 Never smoker 04/04/2011 Marital status Unknown 09/21/2009 [...] gastroenteritis ICD-10: K52.9 ICD-9: 558.9 07/05/2020 Active 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 11/28/2016 Active [...] ANXIETY STATE NOS ICD-9: 300.00 03/05/2013 Active Zafsn-2-qlxzcwulmcc 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 02/04/2013 A ctive DYSPNEA [...] Fill Instructions Macrobid 100 mg capsule RxNorm: 034767 Take 1 Capsule(s) Oral t wo times a day 09/05/2022 09/11/2022 Active bupropion HCl XL 300 mg 24 hr tablet, extended release RxNor m: 788456 TAKE 1 Tablet BY MOUTH DAILY IN THE MORNING (replaces 150mg DOSE) 08/29/2022 02/24/2023 Active levothyroxine 150 mcg tablet RxNorm: 126953 TAKE ONE TA BLET BY MOUTH EVERY IN THE MORNING 08/29/2022 02/24/2023 Active ciprofloxacin 250 mg tablet RxNorm: 239192 Take 1 Tablet(s) Ora l Q12H 06/29/2022 07/03/2022 Inactive levothyroxine 150 mcg tablet RxNorm: 310891 Take 1 Tablet(s) Or al QAM 06/03/2022 06/03/2022 Inactive Wellbutrin XL 300 mg 24 hr tablet, extended release RxNorm: 085759 Take 1 Tablet(s) Oral QAM replaces 150mg dose 05/28/2022 05/28/2022 Inactive Xyzal 5 mg tablet RxNorm: 505549 Take 1 Tablet(s) Oral QPM 05/10/2010/06/2022 Active Claritin 10 mg tablet RxNorm: 187176 Take 1 Tablet(s) Oral QAM 04/2409/06/2022 Inactive Flonase Allergy Relief 50 mcg/actuation nasal spray,suspensi on RxNorm: 0631201 Take 1 [place] Nasal two times a day 05/10/2022 06/08/2022 Inactive Wellbutrin XL 150 mg 24 hr tablet, extended release RxNorm: 948038 Take 1 Tablet(s) Oral QAM 05/10/2022 05/27/2022 Inactive sumatriptan 100 mg tablet RxNorm: 174187 1 Tablet(s) Or al after onset of migraine; may repeat after 2 hours if headache returns, not to exceed 200mg in 24hrs replaces rizatriptan 04/19/2022 04/19/2022 Inactive sumatriptan 100 mg tablet RxNorm: 720453 1 Tablet(s) Or al after onset of migraine; may repeat after 2 hours if headache returns, not to exceed 200mg in 24hrs replaces rizatriptan 04/19/2022 04/19/2022 Inactive propranolol 20 mg tablet RxNorm: 453313 TAKE 1 TABLET BY MOUTH TWICE DAILY 04/18/2022 10/14/2022 Active rizatriptan 10 mg disintegrating tablet RxNorm: 265347 Take 1 Tablet(s) Oral on top of tongue, allow to dissolve then swallow once, may repeat every 2 hrs; max 30 mg/24hrs 04/18/2022 04/18/2022 Inactive prednisone 20 mg tablet RxNorm: 255390 Take 1 Tablet(s) Oral tw o times a day 02/15/2022 02/21/2022 Inactive Nurtec ODT 75 mg disintegrating tablet RxNorm: 8771456 T bria 1 Tablet(s) Oral per 24 hours as needed for migraine 02/09/2022 02/09/2022 Inactive Nurtec ODT 75 mg disintegrating tablet RxNorm: 6950997 T bria 1 Tablet(s) Oral per 24 hours as needed for migraine 02/09/2022 02/09/2022 Inactive fluticasone propionate 50 mcg/actuation nasal spray,suspensi on RxNorm: 7274147 SPRAY ONE SPRAY IN EACH NOSTRIL TWICE DAILY NEEDED 02/05/20222021 Inactive levothyroxine 150 mcg tablet RxNorm: 498882 Take 1 Tablet(s) Or al QAM 02/04/2022 02/04/2022 Inactive albuterol sulfate HFA 90 mcg/actuation aerosol inhaler RxNor m: 3677490 Inhale 2 Puff(s) Oral Q4H as needed 01/05/2022 04/04/2022 Inactive pantoprazole 40 mg tablet,delayed release RxNorm: 295709 Take 1 Tablet(s) Oral QD 01/04/2022 07/02/2022 Inactive propranolol 20 mg tablet RxNorm: 008797 TAKE 1 TABLET BY MOUTH TWICE DAILY 01/04/2022 04/17/2022 Inactive levothyroxine 150 mcg tablet RxNorm: 253713 Take 1 Tablet(s) Or al QAM 12/05/2021 12/05/2021 Inactive metronidazole 500 mg tablet RxNorm: 016444 Take 1 Table t(s) Oral two times a day 11/29/2021 12/05/2021 Inactive Singulair 10 mg tablet RxNorm: 785152 Take 1 Tablet(s) Oral QPM 06/202105/09/2022 Inactive Diflucan 100 mg tablet RxNorm: 997188 Take 1 Tablet(s) Oral QD 06/202111/28/2021 Inactive pantoprazole 40 mg tablet,delayed release RxNorm: 312295 Take 1 Tablet(s) Oral QD 11/06/2021 11/06/2021 Inactive fluticasone propionate 50 mcg/actuation nasal spray,suspensi on RxNorm: 5620027 SPRAY ONE SPRAY IN EACH NOSTRIL TWICE DAILY NEEDED 11/03/20212021 Inactive scopolamine 1 mg over 3 days transdermal patch RxNorm: 46337 2 Apply 1 Unit Dose Transdermal Q72H behind ear 10/30/2021 02/05/2022 Inactive albuterol sulfate HFA 90 mcg/actuation aerosol inhaler RxNor m: 7360636 Inhale 2 Puff(s) Oral Q4H as needed 10/05/2021 11/24/2021 Inactive pantoprazole 40 mg tablet,delayed release RxNorm: 804755 Take 1 Tablet(s) Oral QD 10/05/2021 10/05/2021 Inactive meloxicam 7.5 mg tablet RxNorm: 903349 Take 1 Tablet(s) Oral QD for pain 09/05/2021 09/11/2021 Inactive baclofen 10 mg tablet RxNorm: 535335 Take 0.5-1 Tablet( s) Oral three times per week as needed for muscle spasm 09/05/2021 02/05/2022 Inactive prednisone 20 mg tablet RxNorm: 349553 Take 1 Tablet(s) Oral QD 08/202108/28/2021 Inactive pantoprazole 40 mg tablet,delayed release RxNorm: 000114 Take 1 Tablet(s) Oral QD 07/07/2021 09/04/2021 Inactive fluticasone propionate 50 mcg/actuation nasal spray,suspensi on RxNorm: 4913529 Take 1 [place] Nasal two times a day in each nostrilas needed 07/04/2021 10/01/2021 Inactive Decadron 6 mg tablet RxNorm: 404959 Take 1 Tablet(s) Oral QD 202107/08/2021 Inactive albuterol sulfate HFA 90 mcg/actuation aerosol inhaler RxNor m: 9915748 Inhale 2 Puff(s) Oral Q4H as needed 06/08/2021 09/05/2021 Inactive propranolol 20 mg tablet RxNorm: 618313 TAKE 1 TABLET BY MOUTH TWICE DAILY 06/08/2021 06/08/2021 Inactive pantoprazole 40 mg tablet,delayed release RxNorm: 446358 Take 1 Tablet(s) Oral QD 04/09/2021 06/07/2021 Inactive ProAir HFA 90 mcg/actuation aerosol inhaler RxNorm: 739602 2 Puff(s) Inhalation Q4H as needed 03/13/2021 03/13/2021 Inactive citalopram 10 mg tablet RxNorm: 917489 1 Tablet(s) Oral two antonio es a day 03/13/2021 02/05/2022 Inactive levothyroxine 150 mcg tablet RxNorm: 653021 TAKE 1 Tabl et BY MOUTH EVERY MORNING (REPLACES 137 MCG DOSE) 03/09/2021 03/09/2021 Inactive pantoprazole 40 mg tablet,delayed release RxNorm: 497196 Take 1 Tablet(s) Oral QD 02/08/2021 04/08/2021 Inactive triamcinolone acetonide 0.1 % topical cream RxNorm: 0700212 Take Application Topical two times a day to arm rash 01/19/2021 01/19/2021 Inactive prednisone 20 mg tablet RxNorm: 668072 Take 1 Tablet(s) Oral QD 01/23/2021 Inactive levothyroxine 150 mcg tablet RxNorm: 463708 Take 1 Tabl et(s) Oral QAM replaces 137mcg dose 01/03/2021 01/03/2021 Inactive prednisone 20 mg tablet RxNorm: 340844 Take 2 Tablet(s) Oral QD 01/202112/03/2020 Inactive promethazine-DM 6.25 mg-15 mg/5 mL oral syrup RxNorm: 961750 Take 5 Milliliter(s) Oral Every 6 hours as needed, not to exceed 30 mL in 24 hours 11/29/2020 12/03/2020 Inactive doxycycline hyclate 100 mg capsule RxNorm: 8355778 1 Cap kimi(s) Oral two times a day 09/29/2020 10/05/2020 Inactive Lalita-D 12 Hour 60 mg-120 mg tablet,extended release RxNor m: 898842 1 Tablet(s) Oral QD 09/19/2020 10/03/2020 Inactive ProAir HFA 90 mcg/actuation aerosol inhaler RxNorm: 149190 2 Inhalation Q4H as needed 09/19/2020 09/19/2020 Inactive propranolol 20 mg tablet RxNorm: 401525 TAKE 1 TABLET BY MOUTH TWICE DAILY 09/15/2020 09/15/2020 Inactive pantoprazole 40 mg tablet,delayed release RxNorm: 301402 1 Tabl et(s) Oral QD 09/09/2020 09/08/2020 Inactive pantoprazole 40 mg tablet,delayed release RxNorm: 194121 1 Tabl et(s) Oral QD 09/09/2020 11/07/2020 Inactive propranolol 20 mg tablet RxNorm: 238582 TAKE 1 TABLET BY MOUTH TWICE DAILY 08/24/2020 09/09/2020 Inactive levothyroxine 137 mcg tablet RxNorm: 291264 1 Tablet(s) Oral QD 08/202001/02/2021 Inactive gxfcvkeg-mngyjftie-jcrigvwi 3.5 mg/mL-10,000 unit/mL-0 .1% eye drops RxNorm: 891377 4 Drop(s) Otic three times a day 08/10/2020 02/05/2022 Inactive prednisone 20 mg tablet RxNorm: 962656 1 Tablet(s) Oral two antonio es a day 08/01/2020 08/08/2020 Inactive pantoprazole 40 mg tablet,delayed release RxNorm: 699921 1 Tabl et(s) Oral QD 07/13/2020 09/08/2020 Inactive ondansetron HCl 4 mg tablet RxNorm: 053211 1 Tablet(s) Oral Q4H as needed for nausea 07/13/2020 05/09/2022 Inactive levothyroxine 137 mcg tablet RxNorm: 493979 1 Tablet(s) Oral QD 08/23/2020 Inactive pantoprazole 40 mg tablet,delayed release RxNorm: 626988 1 Tabl et(s) Oral QD 07/13/2020 07/12/2020 Inactive ondansetron HCl 4 mg tablet RxNorm: 067435 1 Tablet(s) Oral Q4H as needed for nausea 07/05/2020 07/12/2020 Inactive Flagyl 500 mg tablet RxNorm: 036201 1 Tablet(s) Oral three time s a day 07/05/2020 07/12/2020 Inactive Fish Oil 1,000 mg (120 mg-180 mg) capsule RxNorm: 1 Caps ule(s) Oral QD 06/23/2020 09/18/2020 Inactive rosuvastatin 10 mg tablet RxNorm: 496856 1 Tablet(s) Oral MWF 06/2306/22/2020 Inactive rosuvastatin 10 mg tablet RxNorm: 235515 1 Tablet(s) Oral MWF 06/2302/05/2022 Inactive fluconazole 100 mg tablet RxNorm: 378151 1 Tablet(s) Oral QOD 05/1706/21/2020 Inactive Macrobid 100 mg capsule RxNorm: 076455 1 Capsule(s) Oral two ti mes a day 05/17/2020 05/24/2020 Inactive levothyroxine 137 mcg tablet RxNorm: 711598 TAKE 1 TABLET BY [facility] ONCE DAILY 05/16/2020 07/12/2020 Inactive Eliquis 5 mg tablet RxNorm: 0782496 1 Tablet(s) Oral two times a da y 04/25/2020 02/05/2022 Inactive propranolol 20 mg tablet RxNorm: 609431 TAKE 1 TABLET BY MOUTH TWICE DAILY 04/25/2020 08/23/2020 Inactive doxycycline hyclate 100 mg capsule RxNorm: 3951114 1 Cap kimi(s) Oral two times a day 03/24/2020 03/31/2020 Inactive doxycycline hyclate 100 mg capsule RxNorm: 8662614 1 Cap kimi(s) Oral two times a day 03/24/2020 03/23/2020 Inactive propranolol 20 mg tablet RxNorm: 409988 TAKE 1 TABLET BY MOUTH TWICE DAILY 03/15/2020 04/13/2020 Inactive Eliquis 5 mg tablet RxNorm: 4132819 1 Tablet(s) Oral two times a da y 03/14/2020 04/24/2020 Inactive Eliquis 5 mg tablet RxNorm: 4625687 1 Tablet(s) Oral two times a da y 03/14/2020 03/13/2020 Inactive levofloxacin 500 mg tablet RxNorm: 449528 1 Tablet(s) Oral QD 02/1802/26/2020 Inactive levofloxacin 500 mg tablet RxNorm: 312506 1 Tablet(s) Oral QD 02/1802/18/2020 Inactive Tessalon Perles 100 mg capsule RxNorm: 340139 1 Capsule (s) Oral three times a day as needed 02/16/2020 02/25/2020 Inactive levothyroxine 137 mcg tablet RxNorm: 503767 TAKE 1 TABLET BY [facility] ONCE DAILY 02/15/2020 03/15/2020 Inactive ProAir HFA 90 mcg/actuation aerosol inhaler RxNorm: 538824 2 Inhalation Q4H as needed 02/11/2020 09/18/2020 Inactive Medrol (Isaiah) 4 mg tablets in a dose pack RxNorm: 720857 Tablet( s) Oral 02/11/2020 02/11/2020 Inactive levothyroxine 137 mcg tablet RxNorm: 664719 TAKE 1 TABLET BY [facility] ONCE DAILY 12/16/2019 01/14/2020 Inactive propranolol 20 mg tablet RxNorm: 544019 TAKE 1 TABLET BY MOUTH TWICE DAILY 12/16/2019 01/14/2020 Inactive levothyroxine 137 mcg tablet RxNorm: 000202 TAKE 1 TABLET BY [facility] ONCE DAILY 10/16/2019 11/14/2019 Inactive prednisone 20 mg tablet RxNorm: 136159 1 Tablet(s) Oral two times a day for rash/hives 09/29/2019 10/04/2019 Inactive Probiotic 10 billion cell capsule RxNorm: 6295394 1 Capsule(s) O ral QD 09/14/2019 02/10/2020 Inactive Bactrim DS 800 mg-160 mg tablet RxNorm: 839166 1 Tablet(s) Oral two times a day 09/14/2019 09/13/2019 Inactive citalopram 10 mg tablet RxNorm: 843629 1 Tablet(s) Oral two antonio es a day 09/14/2019 12/20/2019 Inactive hydroxychloroquine 200 mg tablet RxNorm: 840554 1 Table t(s) Oral two times a day 09/14/2019 02/05/2022 Inactive Bactrim DS 800 mg-160 mg tablet RxNorm: 605951 1 Tablet(s) Oral two times a day 09/14/2019 09/24/2019 Inactive Cipro 250 mg tablet RxNorm: 973003 1 Tablet(s) Oral two times a day 09/02/2019 09/08/2019 Inactive levothyroxine 137 mcg tablet RxNorm: 296664 1 Tablet(s) Oral QD 10/10/2019 Inactive levothyroxine 137 mcg tablet RxNorm: 513445 1 Tablet(s) Oral QD 08/11/2019 Inactive propranolol 20 mg tablet RxNorm: 432075 TAKE 1 TABLET BY MOUTH TWICE DAILY 06/18/2019 12/14/2019 Inactive 06/18/2019 11:09:41 AM Cipro 250 mg tablet RxNorm: 028187 1 Tablet(s) Oral two times a day 04/17/2019 04/16/2019 Inactive Cipro 250 mg tablet RxNorm: 236849 1 Tablet(s) Oral two times a day 04/17/2019 04/24/2019 Inactive Macrobid 100 mg capsule RxNorm: 117397 1 Capsule(s) Oral two ti mes a day 04/15/2019 04/16/2019 Inactive metronidazole 500 mg tablet RxNorm: 014954 1 Tablet(s) Oral thr ee times a day 03/18/2019 03/28/2019 Inactive Bactrim DS 800 mg-160 mg tablet RxNorm: 482011 1 Tablet(s) Oral two times a day 03/18/2019 03/18/2019 Inactive Cipro 250 mg tablet RxNorm: 720039 1 Tablet(s) PO BID 01/26/201901/22 Inactive Flagyl 500 mg tablet RxNorm: 971691 1 Tablet(s) PO TID 01/26/201904/2019 Inactive prednisone 20 mg tablet RxNorm: 373136 1 Tablet(s) PO B ID for 4 days then 1 po daily for 4 days 01/08/2019 03/17/2019 Inactive doxycycline hyclate 100 mg capsule RxNorm: 7587677 1 Capsule(s) PO BID 01/08/2019 01/14/2019 Inactive doxycycline hyclate 100 mg capsule RxNorm: 0681118 1 Capsule(s) PO BID 01/08/2019 01/07/2019 Inactive propranolol 20 mg tablet RxNorm: 181079 1 Tablet(s) PO BID 12/24/1906/17/2019 Inactive Bactrim DS 800 mg-160 mg tablet RxNorm: 585266 1 Tablet (s) PO BID repeat urine culture 48 hours after antibiotics completed. 12/15/2018 12/14/2018 In active Bactrim DS 800 mg-160 mg tablet RxNorm: 153760 1 Tablet (s) PO BID repeat urine culture 48 hours after antibiotics completed. 12/15/2018 12/19/2018 In active levothyroxine 137 mcg tablet RxNorm: 231200 1 Tablet(s) PO QD 12/0906/06/2019 Inactive meclizine 25 mg tablet RxNorm: 906197 1 Tablet(s) PO TID for di zziness 10/30/2018 11/08/2018 Inactive doxycycline hyclate 100 mg tablet RxNorm: 9145688 1 Tablet(s) PO BI D 10/07/2018 10/16/2018 Inactive albuterol sulfate HFA 90 mcg/actuation aerosol inhaler RxNor m: 357361 2 Puff(s) INH Q4H as needed 10/07/2018 02/10/2020 Inactive chlorpheniramine 4 mg tablet RxNorm: 2755727 1 Tablet(s) PO QHS for allergies 10/07/2018 03/17/2019 Inactive Tessalon 200 mg capsule RxNorm: 128111 1 Capsule(s) PO TID 10/08/1910/26/2018 Inactive doxycycline hyclate 100 mg tablet RxNorm: 9908974 1 Tablet(s) PO BI D 10/07/2018 10/06/2018 Inactive Tessalon 200 mg capsule RxNorm: 969146 1 Capsule(s) PO TID 10/08/1910/06/2018 Inactive levothyroxine 137 mcg tablet RxNorm: 671812 1 Tablet(s) PO QD 08/0512/02/2018 Inactive propranolol 20 mg tablet RxNorm: 083128 1 Tablet(s) PO BID 06/23/2012/19/2018 Inactive chlorpheniramine 4 mg tablet RxNorm: 7125976 1 Tablet(s) PO QHS for allergies 06/23/2018 08/21/2018 Inactive levothyroxine 137 mcg tablet RxNorm: 309316 1 Tablet(s) PO QD 06/0308/01/2018 Inactive levothyroxine 137 mcg tablet RxNorm: 031229 1 Tablet(s) PO QD 06/0306/02/2018 Inactive Synthroid 150 mcg tablet RxNorm: 802411 1 Tablet(s) PO QD 04/03/2018 06/22/2018 Inactive Synthroid 150 mcg tablet RxNorm: 464766 1 Tablet(s) PO QD 04/03/2018 04/02/2018 Inactive propranolol 20 mg tablet RxNorm: 583986 1 Tablet(s) PO BID 03/17/20 18 06/14/2018 Inactive propranolol 20 mg tablet RxNorm: 979379 1 Tablet(s) PO BID 03/17/20 18 06/21/2020 Inactive Lancets,Ultra Thin RxNorm: Miscellaneous Use to test blood sugar daily and as needed (Dx: E11.65) 02/28/2018 05/09/2022 Inactive Contour Test Strips RxNorm: Miscellaneous Test b lood sugar daily and as needed (Dx: E11.65) 02/28/2018 05/09/2022 Inactive Contour Meter RxNorm: 1 Miscellaneous DX: E11.65 02/27/20182021 Inactive DX: E11.65 Synthroid 175 mcg tablet RxNorm: 064926 1 Tablet(s) PO QD 01/28/2018 04/02/2018 Inactive Synthroid 175 mcg tablet RxNorm: 936973 1 Tablet(s) PO QD 01/16/2018 04/02/2018 Inactive Medrol (Isaiah) 4 mg tablets in a dose pack RxNorm: 931290 Tablet(s) P O 10/16/2017 01/15/2018 Inactive cyclobenzaprine 7.5 mg tablet RxNorm: 083442 1/2-1 Tablet(s) PO TID as needed 10/16/2017 06/22/2018 Inactive pantoprazole 40 mg tablet,delayed release RxNorm: 242715 1 Tabl et(s) PO QD 08/21/2017 06/22/2018 Inactive Nexium 40 mg capsule,delayed release RxNorm: 384218 1 Capsule(s ) PO QD 08/20/2017 08/20/2017 Inactive doxycycline hyclate 100 mg capsule RxNorm: 5415772 1 Capsule(s) PO BID 08/13/2017 08/12/2017 Inactive doxycycline hyclate 100 mg capsule RxNorm: 2591622 1 Capsule(s) PO BID 08/13/2017 08/19/2017 Inactive Tessalon Perles 100 mg capsule RxNorm: 794822 1 Capsule(s) PO T ID as needed 07/29/2017 08/07/2017 Inactive prednisone 20 mg tablet RxNorm: 142060 1 Tablet(s) PO BID 07/25/2017 07/27/2017 Inactive albuterol sulfate HFA 90 mcg/actuation aerosol inhaler RxNor m: 541328 2 Puff(s) INH Q4H as needed 07/25/2017 10/06/2018 Inactive doxycycline hyclate 100 mg capsule RxNorm: 6090316 1 Capsule(s) PO BID 06/10/2017 06/19/2017 Inactive prednisone 20 mg tablet RxNorm: 228099 1 Tablet(s) PO T ID for 2 days then 1 po BID for 2 days then 1 daily for 3 days 06/10/2017 08/12/2017 Inactive fenofibrate micronized 134 mg capsule RxNorm: 987687 TAKE 1 CAP KIMI DAILY 06/03/2017 06/22/2018 Inactive Zithromax Z-Isaiah 250 mg tablet RxNorm: 776596 Tablet(s) PO Take as directed 05/28/2017 06/09/2017 Inactive prednisone 20 mg tablet RxNorm: 991209 2 Tablet(s) PO QD 05/28/2017 1 08/01/2016 Inactive Tessalon Perles 100 mg capsule RxNorm: 305108 1 Capsule(s) PO T ID as needed 05/28/2017 06/09/2017 Inactive Janumet XR 100 mg-1,000 mg tablet,extended release RxNorm: 1 365323 1 Tablet(s) PO QD 02/14/2017 06/22/2018 Inactive fluoxetine 40 mg capsule RxNorm: 180269 1 Capsule(s) PO QD 02/15/2006/22/2018 Inactive Vitamin D2 50,000 unit capsule RxNorm: 990903 1 Capsule (s) PO TAKE 1 CAPSULE BY MOUTH TWICE WEEKLY 02/11/2017 07/10/2017 Inactive Generic For:* DRISDOL [id number] 02/03/2015 10:10:59 AM Janumet XR 100 mg-1,000 mg tablet,extended release RxNorm: 1 970194 1 Tablet(s) PO QD 09/24/2016 10/06/2018 Inactive Vitamin D2 50,000 unit capsule RxNorm: 174808 Capsule(s ) TAKE 1 CAPSULE BY MOUTH TWICE WEEKLY 09/11/2016 02/11/2017 Inactive Generic For:*DRI SDOL [id number] 02/03/2015 10:10:59 AM Pepcid 20 mg tablet RxNorm: 531249 Tablet(s) PO TAKE 1 TABLET BY MOUTH TWICE DAILY. 06/14/2016 06/13/2016 Inactive fluoxetine 40 mg capsule RxNorm: 795716 1 Capsule(s) PO QD 06/14/20 16 12/10/2016 Inactive loratadine 10 mg tablet RxNorm: 449159 1 Tablet(s) PO QD 1 Tabl et(s) PO BID 06/14/2016 04/03/2017 Inactive [AttnRPh: Saving ryan ly/adjudicate RxGRP:SG20 RxBIN:[id number] RxPCN: ID#:[id number]] Vitamin D2 50,000 unit capsule RxNorm: 041483 Capsule(s ) TAKE 1 CAPSULE BY MOUTH TWICE WEEKLY 06/14/2016 09/10/2016 Inactive Generic For:*DRI SDOL [id number] 02/03/2015 10:10:59 AM Synthroid 175 mcg tablet RxNorm: 875748 1 Tablet(s) PO Saturday t hrough Saturday QD 06/05/2016 01/15/2018 Inactive Synthroid 150 mcg tablet RxNorm: 680908 1 Tablet(s) PO Sat and Sun 11/09/2015 06/04/2016 Inactive Synthroid 175 mcg tablet RxNorm: 539912 1 Tablet(s) PO Saturday t hrough Saturday11/09/2015 06/04/2016 Inactive Synthroid 150 mcg tablet RxNorm: 718018 1 Tablet(s) PO Sat and Sun , Sat, Sun 11/09/2015 11/08/2015 Inactive Janumet XR 100 mg-1,000 mg tablet,extended release RxNorm: 1 578713 TAKE 1 TABLET DAILY 09/30/2015 09/24/2016 Inactive azithromycin 500 mg tablet RxNorm: 425836 1 Tablet(s) PO QD 016 07/25/2015 Inactive azithromycin 500 mg tablet RxNorm: 354407 1 Tablet(s) PO QD 016 08/01/2015 Inactive loratadine 10 mg tablet RxNorm: 967801 1 Tablet(s) PO BID 04/06/2015 06/14/2016 Inactive [AttnRPh: Saving apply/adjudicate RxGRP: SG20 RxBIN:[id number] RxPCN: ID#:[id number]] Synthroid 175 mcg tablet RxNorm: 779112 1 Tablet(s) PO M, W, F 10/201411/08/2015 Inactive Synthroid 150 mcg tablet RxNorm: 190895 1 Tablet(s) PO QD Tu, T h, Sat, Sun 03/28/2015 11/08/2015 Inactive propranolol 20 mg tablet RxNorm: 823140 1 Tablet(s) PO BID 02/09/20 15 06/13/2016 Inactive fluoxetine 40 mg capsule RxNorm: 162713 1 Capsule(s) PO QD 02/09/20 15 06/14/2016 Inactive Vitamin D2 50,000 unit capsule RxNorm: 064651 TAKE 1 CA PSULE BY MOUTH TWICE WEEKLY 02/03/2015 06/14/2016 Inactive Generic For:*DRI SDOL [id number] 02/03/2015 10:10:59 AM Lipitor 80 mg tablet RxNorm: 948285 1 Tablet(s) PO QD 01/24/201507/26 Inactive [AttnRPh: Saving apply/adjudicate RxGRP: SG20 RxBIN:[id number] RxPCN: ID#:[id number]] Bactrim DS 800 mg-160 mg tablet RxNorm: 459772 1 Tablet(s) PO BID 0 01/12/2015 01/11/2015 Inactive Synthroid 150 mcg tablet RxNorm: 167081 1 Tablet(s) PO QD 01/12/2015 03/27/2015 Inactive Bactrim DS 800 mg-160 mg tablet RxNorm: 272786 1 Tablet(s) PO BID 0 01/12/2015 01/18/2015 Inactive fluoxetine 40 mg capsule RxNorm: 607885 1 Capsule(s) PO QD 01/12/20 15 02/07/2015 Inactive Synthroid 137 mcg tablet RxNorm: 387191 1 Tablet(s) PO QD 12/08/2014 01/11/2015 Inactive [AttnRPh: Saving apply/adjudicate RxGRP: SG20 RxBIN:[id number] RxPCN: ID#:[id number]] Medrol (Isaiah) 4 mg tablets in a dose pack RxNorm: 784849 6 Tablet(s) PO QD --then as directed 11/24/2014 11/29/2014 Inactive albuterol sulfate HFA 90 mcg/actuation aerosol inhaler RxNor m: 199422 2 Puff(s) INH Q4H as needed 10/27/2014 07/24/2017 Inactive phenazopyridine 100 mg tablet RxNorm: 5344700 1 Tablet(s) PO TID 11/07/2015 Inactive [AttnRPh: Saving apply/adjud icate RxGRP:SG20 RxBIN:[id number] RxPCN: ID#:[id number]] Macrobid 100 mg capsule RxNorm: 491776 1 Capsule(s) PO BID 10/28/19 15 11/02/2014 Inactive [SAVINGS FOR NON-COVERED RUBIO GS -- BIN:[id number], PCN: ASPROD1, Group: XXXXX, ID# [id number], Questions: . THIS IS NOT INSURANCE.] prednisone 20 mg tablet RxNorm: 675938 1 Tablet(s) PO BID 10/27/2014 10/31/2014 Inactive AttnRPh: Saving apply/adjudicate RxGRP:S G20 RxBIN:[id number] RxPCN:HT ID#:[id number]: Saving apply/adjudicate RxGRP:SG20 RxBIN:[id number] RxPCN:HT ID#:[id number] Macrobid 100 mg capsule RxNorm: 297440 1 Capsule(s) PO BID 09/24/19 15 09/29/2014 Inactive [SAVINGS FOR NON-COVERED RUBIO GS -- BIN:[id number], PCN: ASPROD1, Group: XXXXX, ID# [id number], Questions: . THIS IS NOT INSURANCE.] phenazopyridine 100 mg tablet RxNorm: 1166653 1 Tablet(s) PO TID 09/24/2014 Inactive [SAVINGS FOR NON-COVERED RUBIO GS -- BIN:036664, PCN: ASPROD1, Group: XXXXX, ID# [id number], Questions: . THIS IS NOT INSURANCE.] propranolol 60 mg tablet RxNorm: 551189 1 Tablet(s) PO QD 07/26/2014 02/07/2015 Inactive [SAVINGS FOR UNINSURED PATIENTS -- BIN:0 [id number], PCN: ASPROD1, Group: [id number], ID# [id number], Process claim through [employer], for questions: . THIS IS NOT INSURANCE.] loratadine 10 mg tablet RxNorm: 601829 1 Tablet(s) PO BID 07/12/2014 07/11/2014 Inactive [AttnRPh: Saving apply/adjudicate RxGRP: SG20 RxBIN:[id number] RxPCN: ID#:[id number]] loratadine 10 mg tablet RxNorm: 111758 1 Tablet(s) PO BID 07/12/2014 10/06/2018 Inactive [SAVINGS FOR UNINSURED PATIENTS -- BIN:0 [id number], PCN: ASPROD1, Group: [id number], ID# [id number], Process claim through [employer], for questions: . THIS IS NOT INSURANCE.] Vitamin D2 50,000 unit capsule RxNorm: 736738 1 Capsule (s) PO Take 1 capsule by mouth twice weekly 05/18/2014 02/02/2015 Inactive Pepcid 20 mg tablet RxNorm: 995650 TAKE 1 TABLET BY MOUTH TWICE DAILY. 05/18/2014 06/14/2016 Inactive Generic For:PEPCID 2 0MG 05/18/2014 11:28:51 AM Janumet XR 100 mg-1,000 mg tablet,extended release RxNorm: 1 786574 1 Tablet(s) PO QD 05/12/2014 08/09/2014 Inactive [SAVINGS FOR UNI NSURED PATIENTS -- BIN:[id number], PCN: ASPROD1, Group: [id number], ID# [id number], Process claim through [employer], for questions: . THIS IS NOT INSURANCE.] Voltaren 1 % topical gel RxNorm: 263880 TOP BID 04/21/2014 5 Inactive Apply to affected areas 2-3 times daily as needed. Trilipix 135 mg capsule,delayed release RxNorm: 346573 1 Tablet(s) PO QD 1 Capsule(s) PO QD 04/21/2014 09/17/2014 Inactive may do 90 day f ill if desired Synthroid 137 mcg tablet RxNorm: 433625 1 Tablet(s) PO QD 03/30/2014 09/25/2014 Inactive [AttnRPh: Saving apply/adjudicate RxGRP: SG20 RxBIN:[id number] RxPCN: ID#:[id number]] Cipro 250 mg tablet RxNorm: 594189 1 Tablet(s) PO BID 03/30/201403/24 Inactive [SAVINGS FOR UNINSURED PATIENTS -- BIN:[id number], PCN: ASPROD1, Group: [id number], ID# [id number], Process claim through MedImpact, for questions: . THIS IS NOT INSURANCE.] Janumet XR 100 mg-1,000 mg tablet,extended release RxNorm: 1 177319 2 Tablet(s) PO QD 01/06/2014 01/05/2014 Inactive [SAVINGS FOR UNI NSURED PATIENTS -- BIN:[id number], PCN: ASPROD1, Group: [id number], ID# [id number], Process claim through MedImpact, for questions: . THIS IS NOT INSURANCE.] Janumet XR 100 mg-1,000 mg tablet,extended release RxNorm: 1 876946 1 Tablet(s) PO QD 01/06/2014 04/05/2014 Inactive [SAVINGS FOR UNI NSURED PATIENTS -- BIN:[id number], PCN: ASPROD1, Group: [id number], ID# [id number], Process claim through MedImpact, for questions: . THIS IS NOT INSURANCE.] propranolol 60 mg tablet RxNorm: 234776 1 Tablet(s) PO QD 12/28/2013 07/26/2014 Inactive [AttnRPh: Saving apply/adjudicate RxGRP: SG20 RxBIN:[id number] RxPCN: ID#:[id number]] Synthroid 150 mcg tablet RxNorm: 982426 1 Tablet(s) PO QD brand onl y 12/28/2013 04/20/2014 Inactive [AttnRPh: Saving apply/adjud icate RxGRP:SG20 RxBIN:[id number] RxPCN:HT ID#:[id number]] Vitamin D2 50,000 unit capsule RxNorm: 967757 1 Capsule (s) PO Take 1 capsule by mouth twice weekly 12/02/2013 05/17/2014 Inactive Lipitor 80 mg tablet RxNorm: 521737 1 Tablet(s) PO QD 11/24/201305/25 Inactive [AttnRPh: Saving apply/adjudicate RxGRP: SG20 RxBIN:[id number] RxN: ID#:[id number]] loratadine 10 mg tablet RxNorm: 869313 1 Tablet(s) PO BID 11/17/2013 07/12/2014 Inactive fluoxetine 20 mg capsule RxNorm: 946103 1 Capsule(s) PO QAM TAKE ONE CAPSULE BY MOUTH ONCE DAILY IN THE MORNING. 11/04/2013 01/10/2015 Inactive Generic For:PROZAC 20MG Generic For:PROZAC 20MG 06/23/2013 11:55:55 AM [AttnRPh: Saving apply/adjudicate RxGRP:SG20 RxBIN:[id number] RxPCN: ID#:[id number]] Vytorin 10 mg-80 mg tablet RxNorm: 7722199 Tablet(s) PO TAKE ONE TABLET BY MOUTH ONCE DAILY IN THE EVENING. 09/30/2013 11/23/2013 Inactive Trilipix 135 mg capsule,delayed release RxNorm: 320259 1 Capsul e(s) PO QD 07/15/2013 04/21/2014 Inactive may do 90 day fill i f desired Voltaren 1 % topical gel RxNorm: 829856 TOP BID 07/15/2013 4 Inactive Apply to affected areas 2-3 times daily as needed. Wellbutrin XL 300 mg 24 hr tablet, extended release RxNorm: 976628 1 Tablet(s) PO QAM 06/29/2013 04/03/2017 Inactive fluoxetine 20 mg capsule RxNorm: 684070 1 Capsule(s) PO QAM TAKE ONE CAPSULE BY MOUTH ONCE DAILY IN THE MORNING. 06/29/2013 11/04/2013 Inactive Generic For:PROZAC 20MG Generic For:PROZAC 20MG 06/23/2013 11:55:55 AM fluoxetine 20 mg capsule RxNorm: 120637 Capsule(s) PO T BRIA ONE CAPSULE BY MOUTH ONCE DAILY IN THE MORNING. 06/23/2013 06/28/2013 Inactive Gener ic For:PROZAC 20MG Generic For:PROZAC 20MG 06/23/2013 11:55:55 AM Synthroid 150 mcg tablet RxNorm: 601266 1 Tablet(s) PO QD brand onl y 06/08/2013 12/04/2013 Inactive Vytorin 10 mg-80 mg tablet RxNorm: 3918642 1 Tablet(s) PO QD 201209/05/2013 Inactive TAKE 1 TABLET BY MOUTH DAILY propranolol 60 mg tablet RxNorm: 760575 1 Tablet(s) PO QD 06/08/2013 12/04/2013 Inactive Pepcid 20 mg tablet RxNorm: 351956 Tablet(s) PO TAKE 1 TABLET BY MOUTH TWICE DAILY. 06/04/2013 11/23/2013 Inactive fluoxetine 20 mg capsule RxNorm: 583891 1 Capsule(s) PO QAM 013 06/22/2013 Inactive Wellbutrin XL 300 mg 24 hr tablet, extended release RxNorm: 908645 1 Tablet(s) PO QAM 05/26/2013 06/28/2013 Inactive Wellbutrin XL 150 mg 24 hr tablet, extended release RxNorm: 724923 1 Tablet(s) PO QD 05/15/2013 05/25/2013 Inactive Wellbutrin XL 150 mg 24 hr tablet, extended release RxNorm: 720213 1 Tablet(s) PO QD 05/15/2013 05/14/2013 Inactive Kombiglyze XR 5 mg-500 mg tablet,extended release RxNorm: 10 91886 1 Tablet(s) PO QD 05/07/2013 05/15/2013 Inactive cefdinir 300 mg capsule RxNorm: 389300 2 Capsule(s) PO QD 04/23/2013 05/02/2013 Inactive AttnRPh: Saving apply/adjudicate RxGRP:S G20 RxBIN:[id number] RxPCN:HT ID#:[id number] Pepcid 20 mg tablet RxNorm: 949654 Tablet(s) PO TAKE 1 TABLET BY MOUTH TWICE DAILY. 04/17/2013 06/13/2016 Inactive Pepcid 20 mg tablet RxNorm: 759578 1 Tablet(s) PO BID 04/06/201305/24 Inactive Vytorin 10-80 10 mg-80 mg tablet RxNorm: 681244 1 Tablet(s) PO QD 0 02/19/2013 06/08/2013 Inactive TAKE 1 TABLET BY MOUTH DAILY loratadine 10 mg tablet RxNorm: 218285 1 Tablet(s) PO BID 01/23/2013 07/21/2013 Inactive Synthroid 150 mcg tablet RxNorm: 706871 1 Tablet(s) PO QD brand onl y 12/02/2012 06/08/2013 Inactive propranolol 60 mg tablet RxNorm: 279688 1 Tablet(s) PO QD 12/02/2012 06/08/2013 Inactive Trilipix 135 mg capsule,delayed release RxNorm: 640575 1 Capsul e(s) PO QD 12/02/2012 05/30/2013 Inactive may do day fill i f desired Pepcid 20 mg tablet RxNorm: 156478 1 Tablet(s) PO BID 11/27/201203/24 Inactive Effexor XR 150 mg capsule,extended release RxNorm: 689129 1 Cap kimi(s) PO QD 11/24/2012 05/14/2013 Inactive Vytorin 10-80 10 mg-80 mg tablet RxNorm: 433659 1 Tablet(s) PO QD 0 11/24/2012 2013 Inactive TAKE 1 TABLET BY MOUTH DAILY Vytorin 10-80 10 mg-80 mg tablet RxNorm: 684930 1 Tablet(s) PO QD 0 11/21/2012 11/24/2012 Inactive TAKE 1 TABLET BY MOUTH DAILY Effexor XR 150 mg capsule,extended release RxNorm: 316743 1 Cap kimi(s) PO QD 11/21/2012 11/24/2012 Inactive loratadine 10 mg tablet RxNorm: 9574022 1 Tablet(s) PO BID 11/12/19 13 01/23/2013 Inactive Vytorin 10-80 10 mg-80 mg tablet RxNorm: 547087 Tablet( s) PO TAKE 1 TABLET BY MOUTH ONCE DAILY. 10/15/2012 11/21/2012 Inactive Vytorin 10-80 10 mg-80 mg tablet RxNorm: 692750 1 Tablet(s) PO QD 0 10/15/2012 11/20/2012 Inactive TAKE 1 TABLET BY MOUTH DAILY Effexor XR 150 mg capsule,extended release RxNorm: 240961 1 Cap kimi(s) PO QD 10/15/2012 11/20/2012 Inactive Effexor XR 150 mg capsule,extended release RxNorm: 258096 Capsule(s) PO TAKE 1 CAPSULE BY MOUTH ONCE DAILY 10/15/2012 11/21/2012 Inactive azithromycin 250 mg tablet RxNorm: 872559 2 Tablet(s) PO QD 013 09/10/2012 Inactive Culturelle 10 billion cell capsule RxNorm: 092904 1 Cap kimi(s) PO BID for diarrhea maintenance 09/03/2012 10/02/2012 Inactive Medrol (Isaiah) 4 mg tablets in a dose pack RxNorm: 711171 Tablet(s) PO as directed 09/03/2012 07/11/2011 Active as directed Culturelle 10 billion cell capsule RxNorm: 392179 1 Capsule(s) PO BID 07/23/2012 08/21/2012 Inactive Vitamin D2 50,000 unit capsule RxNorm: 000537 Capsule(s ) PO TAKE 1 CAPSULE EVERY DAY SATURDAY THRU Saturday07/09/2012 08/20/2013 Inactive Vitamin D2 50,000 unit capsule RxNorm: 8253047 Capsule(s ) PO TAKE 1 CAPSULE EVERY DAY SATURDAY THRU Saturday07/07/2012 07/08/2012 Inactive Vitamin D2 50,000 unit capsule RxNorm: 5259797 Capsule(s ) PO TAKE 1 CAPSULE EVERY DAY SATURDAY THRU Saturday07/07/2012 07/06/2012 Inactive Vitamin D2 50,000 unit capsule RxNorm: 6704106 Capsule(s ) PO TAKE 1 CAPSULE EVERY DAY SATURDAY THRU Saturday06/27/2012 07/06/2012 Inactive Synthroid 150 mcg tablet RxNorm: 168866 1 Tablet(s) PO QD brand onl y 06/09/2012 12/02/2012 Inactive metformin 1,000 mg tablet RxNorm: 479637 1 Tablet(s) PO BID rep laces 500mg dose 05/20/2012 11/10/2012 Inactive propranolol 60 mg tablet RxNorm: 396101 1 Tablet(s) PO QD 04/23/2012 12/02/2012 Inactive Effexor XR 150 mg capsule,extended release RxNorm: 125912 1 Cap kimi(s) PO QD 04/04/2012 09/30/2012 Inactive Zyrtec 10 mg tablet RxNorm: 7550234 1 Tablet(s) PO QD 04/04/201203/24 Inactive Trilipix 135 mg capsule,delayed release RxNorm: 295734 1 Capsul e(s) PO QD 03/19/2012 12/02/2012 Inactive may do 90 day fill i f desired Vytorin 10-80 10 mg-80 mg tablet RxNorm: 707676 1 Tablet(s) PO QD 0 01/31/2012 07/28/2012 Inactive TAKE 1 TABLET BY MOUTH DAILY Voltaren 1 % topical gel RxNorm: 651953 TOP BID 01/25/2012 4 Inactive Apply to affected areas 2-3 times daily as needed. Synthroid 150 mcg tablet RxNorm: 602624 1 Tablet(s) PO QD brand onl y 01/02/2012 06/09/2012 Inactive metformin ER 1,000 mg 24 hr Tab Ctrl Rel RxNorm: 570099 1 Table t(s) PO QD 01/02/2012 05/19/2012 Inactive metformin ER 500 mg 24 hr Tab RxNorm: 956178 Tablet(s) PO 12/21/2011 01/01/2012 Inactive TAKE 1 TABLET BY MOUTH ONCE DAILY. Voltaren 1 % Topical Gel RxNorm: 367805 TOP BID 11/28/2011 2 Inactive Apply to affected areas 2-3 times daily as needed. propranolol 60 mg tablet RxNorm: 134624 1 Tablet(s) PO QD 10/17/2011 04/23/2012 Inactive Effexor XR 150 mg capsule,extended release RxNorm: 156067 1 Cap kimi(s) PO QD 09/13/2011 04/04/2012 Inactive Medrol (Isaiah) 4 mg tablets in a dose pack RxNorm: 931621 Tablet(s) PO as directed 09/04/2011 07/11/2011 Active as directed doxycycline hyclate 100 mg Tab RxNorm: 4362260 1 Tablet(s) PO BID 0 09/04/2011 09/13/2011 Inactive doxycycline monohydrate 100 mg Tab RxNorm: 0033183 1 Tablet(s) P O BID 07/25/2011 08/03/2011 Inactive prednisone 10 mg Tab RxNorm: 936175 1 Tablet(s) PO TID 07/25/201112/2011 Inactive Synthroid 150 mcg Tab RxNorm: 183005 1 Tablet(s) PO QD brand only 0 07/12/2011 01/02/2012 Inactive Vytorin 10-80 10 mg-80 mg Tab RxNorm: 349849 1 Tablet(s) PO QD 05/2601/31/2012 Inactive TAKE 1 TABLET BY MOUTH DAILY Vitamin D2 50,000 unit capsule RxNorm: 9385168 1 Capsule(s) PO Q D M-F 05/15/2011 06/26/2012 Inactive TAKE 1 CAPSULE BY MO [facility] DAILY SATURDAY THROUGH FRIDAYS Synthroid 150 mcg Tab RxNorm: 834997 1 Tablet(s) PO QD brand only 1 07/09/2010 07/11/2011 Inactive doxycycline monohydrate 100 mg Tab RxNorm: 0070796 1 Tablet(s) P O BID 04/25/2011 05/04/2011 Inactive Trilipix 135 mg capsule,delayed release RxNorm: 045038 1 Capsul e(s) PO QD 04/23/2011 03/19/2012 Inactive cefdinir 300 mg Cap RxNorm: 689965 1 Capsule(s) PO BID 04/04/2011 Inactive propranolol 60 mg Tab RxNorm: 167782 1 Tablet(s) PO QD 03/26/2011 Inactive Ultram 50 mg Tab RxNorm: 072220 1-2 Tablet(s) PO QID 03/22/201103/21 Active prn pain metformin ER 500 mg 24 hr Tab RxNorm: 474656 1 Tablet(s) PO QD 06/201006/21/2011 Inactive Synthroid 150 mcg Tab RxNorm: 863525 1 Tablet(s) PO QD 02/22/201112/2010 Inactive Vytorin 10-80 10 mg-80 mg Tab RxNorm: 708300 1 Tablet(s) PO QD 01/2303/13/2011 Inactive TAKE 1 TABLET BY MOUTH DAILY Trilipix 135 mg Cap RxNorm: 844756 1 Capsule(s) PO QD 01/10/201103/26 Inactive Effexor XR 150 mg 24 hr Cap RxNorm: 728325 1 Capsule(s) PO QD 01/0908/06/2011 Inactive Vitamin D 50,000 unit Cap RxNorm: 0475689 Capsule(s) PO 12/20/2010 Inactive TAKE 1 CAPSULE BY MOUTH DAILY Fridays Septra DS 800 mg-160 mg Tab RxNorm: 178826 1 Tablet(s) PO BID 12/0712/16/2010 Inactive mupirocin 2 % Ointment RxNorm: 065749 1 Application TOP BID Apply to affected area twice daily 12/07/2010 12/13/2010 Inactive Trilipix 135 mg Cap RxNorm: 228415 1 Capsule(s) PO QD 10/16/201003/26 Inactive Synthroid 150 mcg Tab RxNorm: 960945 1 Tablet(s) PO QD 10/09/201006/2010 Inactive metformin ER 500 mg 24 hr Tab RxNorm: 583740 1 Tablet(s) PO QD 09/2202/22/2011 Inactive Nexium 40 mg Cap RxNorm: 637453 1 Capsule(s) PO QD 10/05/2010 019 Inactive Vytorin 10-80 10 mg-80 mg Tab RxNorm: 490979 1 Tablet(s) PO QD 09/201002/12/2011 Inactive propranolol 60 mg Tab RxNorm: 662942 1 Tablet(s) PO QD 09/18/201008/2010 Inactive Synthroid 125 mcg Tab RxNorm: 761722 1 Tablet(s) PO QD 08/07/2010 Inactive Synthroid 125 mcg Tab RxNorm: 201939 1 Tablet(s) PO QD 08/07/2010 Inactive Voltaren 1 % Topical Gel RxNorm: 321679 TOP BID Apply t o affected areas 2-3 times daily as needed. 08/01/2010 11/28/2011 Inactive Voltaren 1 % Topical Gel RxNorm: 873666 TOP BID Apply t o affected areas 2-3 times daily as needed. 07/04/2010 07/31/2010 Inactive Advair Diskus 250 mcg-50 mcg/dose for Inhalation RxNorm: 135 9859 1 Puff(s) INH Q12H 07/04/2010 07/11/2011 Inactive Effexor XR 150 mg 24 hr Cap RxNorm: 272804 1 Capsule(s) PO QD 06/0801/03/2011 Inactive Synthroid 100 mcg Tab RxNorm: 437253 1 Tablet(s) PO QD 06/06/2010 Inactive Vitamin D 50,000 unit Cap RxNorm: 0780797 1 Capsule(s) PO QD M-F 05/15/2011 Inactive Synthroid 150 mcg Tab RxNorm: 400855 1 Tablet(s) PO 05/25/20102010 Inactive Vytorin 10-80 10 mg-80 mg Tab RxNorm: 758537 1 Tablet(s) PO QD 04/2509/25/2010 Inactive Trilipix 135 mg Cap RxNorm: 946299 1 Capsule(s) PO QD 04/17/201009/23 Inactive propranolol 60 mg Tab RxNorm: 969184 1 Tablet(s) PO QD 01/09/2010 Inactive Advair Diskus 250 mcg-50 mcg/dose for Inhalation RxNorm: 135 9859 1 Puff(s) INH Q12H 12/26/2009 07/04/2010 Inactive Advair Diskus 250 mcg-50 mcg/Dose for Inhalation RxNorm: 135 9859 1 Puff(s) INH Q12H 11/26/2009 12/25/2009 Inactive Synthroid 200 mcg Tab RxNorm: 156865 1 Tablet(s) PO QD 11/24/2009 Inactive Effexor XR 150 mg 24 hr Cap RxNorm: 684438 1 Capsule(s) PO QD 10/2705/24/2010 Inactive Lisinopril 10 mg Tab RxNorm: 205711 1 Tablet(s) PO QD 10/17/200909/23 Inactive Propranolol 60 mg Tab RxNorm: 113330 1 Tablet(s) PO QD 10/17/2009 Inactive Septra DS 160 mg-800 mg Tab RxNorm: 386207 1 Tablet(s) PO BID 10/0410/08/2009 Inactive Mupirocin 2 % Ointment RxNorm: 560263 TOP Q6-8H 10/04/2009 10/10/2009 Inactive Voltaren 1 % Topical Gel RxNorm: 004565 TOP BID Apply t o affected areas 2-3 times daily as needed. 09/21/2009 03/19/2010 Inactive Trilipix 135 mg Cap RxNorm: 826457 1 Capsule(s) PO QD 09/20/200902/23 Inactive Nexium 40 mg Cap RxNorm: 423508 1 Capsule(s) PO QD 09/19/2009 010 Inactive Tylenol Arthritis 650 mg Tab RxNorm: 9783728 2 Tablet(s) PO BID 09/21 Active Vitamin D3 5,000 unit tablet RxNorm: 411948 1 Tablet(s) PO QD 019 Active Synthroid 150 mcg tablet RxNorm: 684340 1 Tablet(s) PO QD 01/12/2015 01/11/2015 Inactive Synthroid 150 mcg tablet RxNorm: 784565 1 Tablet(s) PO Saturday and Saturday01/16/2018 01/15/2018 Inactive Vitamin D 2,000 unit Cap RxNorm: 1 Capsule(s) PO QD 01/30/201002/2010 Inactive Flexeril 5 mg tablet RxNorm: 542411 1/2 to 1 Tablet(s) PO TID as needed for muscle spasm 06/10/2017 06/09/2017 Inactive Medrol (Isaiah) 4 mg Tabs in a Dose Pack RxNorm: 996230 Tablet(s) PO 0 09/04/2011 07/11/2011 Inactive as directed fenofibrate micronized 134 mg capsule RxNorm: 349208 1 Capsule( s) PO QD 06/03/2017 06/02/2017 Inactive Vitamin D2 50,000 unit capsule RxNorm: 154582 Capsule(s ) PO Take 1 capsule by mouth twice weekly 12/02/2013 12/01/2013 Inactive prednisone 20 mg tablet RxNorm: 515635 1 Tablet(s) PO BID 03/30/2014 03/29/2014 Inactive AttnRPh: Saving apply/adjudicate RxGRP:S G20 RxBIN:[id number] RxPCN:HT ID#:[id number]: Saving apply/adjudicate RxGRP:SG20 RxBIN:[id number] RxPCN:HT ID#:[id number] Soma 350 mg tablet RxNorm: 702983 1 Tablet(s) PO TID prn spasm 01/2310/08/2010 Inactive Lancets,Ultra Thin RxNorm: Miscellaneous Use to test blood sugar daily and as needed (Dx: E11.65) 02/28/2018 02/27/2018 Inactive pantoprazole 40 mg tablet,delayed release RxNorm: 706499 1 Tabl et(s) PO QD 08/21/2017 08/20/2017 Inactive Janumet XR 100 mg-1,000 mg tablet,extended release RxNorm: 1 994933 2 Tablet(s) PO QD 01/06/2014 01/05/2014 Inactive Contour Meter RxNorm: miscellaneous 02/27/2018 02/26/2018 Inactive Synthroid 200 mcg Tab RxNorm: 745866 1 Tablet(s) PO QD 11/24/200907/2009 Inactive Kombiglyze XR 5 mg-500 mg tablet,extended release RxNorm: 10 39980 1 Tablet(s) PO QD 05/07/2013 05/06/2013 Inactive Zithromax Z-Isaiah 250 mg tablet RxNorm: 311801 Tablet(s) PO as di rected 05/14/2013 05/13/2013 Inactive AttnRPh: Saving appl y/adjudicate RxGRP:SG20 RxBIN:[id number] RxPCN:HT ID#:[id number] Fish Oil 1,000 mg capsule RxNorm: 3 Capsule(s) PO QD 04/04/2017 Inactive Lasix Oral RxNorm: Oral 03/30/2014 03/29/2014 Inactive loratadine 10 mg tablet RxNorm: 869359 1 Tablet(s) PO QD 08/20/2017 0 08/19/2017 Inactive Vitamin D 5,000 unit Tab RxNorm: 1 Tablet(s) PO twice a week 1 08/07/2009 06/05/2010 Inactive permethrin 5 % Topical Cream RxNorm: 251099 TOP Use as directed 02/03/2013 Inactive Gabapentin 100 mg Tab RxNorm: 915291 1 Tablet(s) PO BID 04/12/2010 Inactive Voltaren 1 % topical gel RxNorm: 679542 TOP as needed 06/23/201805/26 Inactive Gabapentin 300 mg Cap RxNorm: 362792 1 Capsule(s) PO BID 07/12/2011 0 07/11/2011 Inactive Contour Test Strips RxNorm: Miscellaneous Test blood sug ar daily (Dx: E11.65) 02/28/2018 02/27/2018 Inactive Promethazine 25 mg Tab RxNorm: 122427 1 Tablet(s) PO Q6 -8H As needed for nausea and vomiting. 10/09/2010 10/08/2010 Inactive propranolol 20 mg tablet RxNorm: 641732 1 Tablet(s) PO BID 03/17/20 18 03/16/2018 Inactive Vitamin D 50,000 unit Cap RxNorm: 6540173 Capsule(s) PO 2 weekly 06/05/2010 Inactive Synthroid 175 mcg Tab RxNorm: 567867 1 Tablet(s) PO QD 07/12/2011 Inactive triamcinolone acetonide 0.1 % Ointment RxNorm: 8800154 T OP TID apply three times a day (sparingly) as needed for itching 04/04/2017 04/03/2017 Inactive Ultram 50 mg Tab RxNorm: 651546 1-2 Tablet(s) PO QID prn pain 03/2203/22/2011 Inactive Topamax 100 mg Tab RxNorm: 601648 1 Tablet(s) PO BID 10/04/200910/03 Inactive Vitamin D3 1000 units Capsule RxNorm: 3 Capsule(s) PO QD 0 06/05/2010 Inactive Singulair 10 mg tablet RxNorm: 221438 1 Tablet(s) PO QD 06/23/2018 Inactive Medication [...] Code Item Item Code Result Date S vice Location SARS-CoV2 [id number] SARS-CoV2 PCR Detected 07/08/2021 Unkno wn COMPREHENSIVE METABOLIC 00764 AST 15 U/L 2018 Unknown COMPREHENSIVE METABOLIC 05264 ALT 18 U/L 2018 Unknown COMPREHENSIVE METABOLIC 81621 BUN 10 mg/dL 2018 Unknown COMPREHENSIVE METABOLIC 47949 ALBUMIN 4.1 g/dL 2018 Unknown COMPREHENSIVE METABOLIC 32245 CHLORIDE 100 mmol/L 01/26 Unknown COMPREHENSIVE METABOLIC 40857 Bili Total 0.4 mg/dL 01/26 Unknown COMPREHENSIVE METABOLIC 80656 ALK PHOS 57 U/L 2018 Unknown COMPREHENSIVE METABOLIC 41216 SODIUM 136 mmol/L 01/26 Unknown COMPREHENSIVE METABOLIC 86917 CREATININE 0.71 mg/dL 10/2018 Unknown COMPREHENSIVE METABOLIC 17293 CALCIUM 9.3 mg/dL 2018 Unknown COMPREHENSIVE METABOLIC 06254 POTASSIUM 4.4 mmol/L 01/26 Unknown COMPREHENSIVE METABOLIC 86832 Total Protein 6.7 g/dL Unknown COMPREHENSIVE METABOLIC 70588 Glucose 88 mg/dL 2018 Unknown COMPREHENSIVE METABOLIC 30075 Bicarbonate 27 mmol/L 10/2018 Unknown COMPREHENSIVE METABOLIC 91024 AGAP 9 mmol/L 2018 Unknown GFR CALC 9437687 GFR Non Afr Amr >60 mL/min 01/26/2019 Un known GFR CALC 7756992 GFR Afr Amr >60 mL/min 01/26/2019 Unknow n COMPLETE BLOOD COUNT 1924283 WBC 7.0 10e9/L 01/27/20 19 Unknown COMPLETE BLOOD COUNT 2842397 RBC 4.52 10e12/L 2018 Unknown COMPLETE BLOOD COUNT 8180021 HEMOGLOBIN 14.0 g/dL 01/27/20 19 Unknown COMPLETE BLOOD COUNT 4360921 HEMATOCRIT 42.6 % 01/27/20 19 Unknown COMPLETE BLOOD COUNT 7972661 MCV 94.2 fL 9 Unknown COMPLETE BLOOD COUNT 1732535 MCH 31.0 pg 9 Unknown COMPLETE BLOOD COUNT 9691121 MCHC 32.9 g/dL 9 Unknown COMPLETE BLOOD COUNT 4960894 PLATELET COUNT 272 10e9/L 10/2018 Unknown COMPLETE BLOOD COUNT 5352704 Mean Plt Volume 10.4 fL 10/2018 Unknown COMPLETE BLOOD COUNT 2452684 Neut Auto 53.9 % 9 Unknown COMPLETE BLOOD COUNT 1595244 Lymph Auto 33.8 % 01/27/20 19 Unknown COMPLETE BLOOD COUNT 0648564 [place] Auto 9.1 % 9 Unknown COMPLETE BLOOD COUNT 7893896 Eos Auto 2.3 % 9 Unknown COMPLETE BLOOD COUNT 0284143 RDW 13.2 % 9 Unknown COMPLETE BLOOD COUNT 2669302 Baso Auto 0.9 % 9 Unknown COMPLETE BLOOD COUNT 3638628 Neutrophil Abs 3.77 10e9/L Unknown COMPLETE BLOOD COUNT 2900882 Lymphocyte Abs 2.37 10e9/L Unknown COMPLETE BLOOD COUNT 3706755 Monocyte Abs 0.64 10e9/L 10/2018 Unknown COMPLETE BLOOD COUNT 1311928 Eosinophil Abs 0.16 10e9/L Unknown COMPLETE BLOOD COUNT 3627475 RDW-SD 44.2 fL 9 Unknown COMPLETE BLOOD COUNT 7484756 Basophil Abs 0.06 10e9/L 10/2018 Unknown Procedures Procedure Codes Date URINALYSIS NONAUTO W/O SCOPE CPT-4: 56235 09/05/2022 RML URINE CULTURE/ COLONY COUNT CPT-4: 27740 09/06/19 23 RML URINE CULTURE/ COLONY COUNT CPT-4: 50220 06/29/19 23 THER/PROPH/DIAG INJ SC/IM CPT-4: 25132 04/18/2022 KETOROLAC TROMETHAMINE INJ CPT-4: J1885 04/18/2022 FLU 64 + VACC AIIV4 NO PRSRV 0.5ML IM CPT-4: 90281 ADMIN INFLUENZA VIRUS VAC CPT-4: G0008 04/05/2022 PPPS, subseq visit CPT-4: G0439 02/06/2022 DEXAMETHASONE SODIUM PHOS CPT-4: J1100 11/09/2021 THER/PROPH/DIAG INJ SC/IM CPT-4: 67023 11/09/2021 TRIAMCINOLONE ACET INJ NOS CPT-4: J3301 11/09/2021 CEFTRIAXONE SODIUM INJECTION CPT-4: J0696 10/30/2021 THER/PROPH/DIAG INJ SC/IM CPT-4: 99117 10/30/2021 INFLUENZA ASSAY W/OPTIC CPT-4: 07654 10/30/2021 THER/PROPH/DIAG INJ SC/IM CPT-4: 87760 09/05/2021 TRIAMCINOLONE ACET INJ NOS CPT-4: J3301 09/05/2021 INFLUENZA ASSAY W/OPTIC CPT-4: 28331 07/04/2021 SARS-CoV2 CPT-4: 0636113 07/04/2021 FLU VACC PRSV FREE INC ANTIG 65 AND OLDER CPT-4: 57086 03/29/2021 FLU VACC PRSV FREE INC ANTIG 65 AND OLDER CPT-4: 75468 03/29/2021 ADMIN INFLUENZA VIRUS VAC CPT-4: G0008 03/29/2021 DRAINAGE OF SKIN ABSCESS CPT-4: 47479 02/08/2021 PPPS, subseq visit CPT-4: G0439 01/03/2021 OCCULT BLOOD FECES CPT-4: 93983 07/13/2020 RML URINE CULTURE/ COLONY COUNT CPT-4: 05694 05/17/20 20 URINALYSIS NONAUTO W/O SCOPE CPT-4: 05790 05/17/2020 CEFTRIAXONE SODIUM INJECTION CPT-4: J0696 03/07/2020 THER/PROPH/DIAG INJ SC/IM CPT-4: 70133 03/07/2020 THER/PROPH/DIAG INJ SC/IM CPT-4: 44395 03/07/2020 METHYLPREDNISOLONE INJECTION CPT-4: J2930 03/07/2020 PPPS, subseq visit CPT-4: G0439 12/21/2019 RML URINE CULTURE/ COLONY COUNT CPT-4: 59087 09/11/19 20 CEFTRIAXONE SODIUM INJECTION CPT-4: J0696 09/08/2019 THER/PROPH/DIAG INJ SC/IM CPT-4: 89082 09/08/2019 THER/PROPH/DIAG INJ SC/IM CPT-4: 51878 09/07/2019 CEFTRIAXONE SODIUM INJECTION CPT-4: J0696 09/07/2019 THER/PROPH/DIAG INJ SC/IM CPT-4: 71297 09/07/2019 URINALYSIS NONAUTO W/O SCOPE CPT-4: 43854 09/02/2019 RML URINE CULTURE/ COLONY COUNT CPT-4: 53061 09/02/19 20 FLU VACC PRSV FREE INC ANTIG 65 AND OLDER CPT-4: 61422 04/15/2019 URINALYSIS NONAUTO W/O SCOPE CPT-4: 06577 04/15/2019 RML URINE CULTURE/ COLONY COUNT CPT-4: 00366 04/15/20 19 ADMIN INFLUENZA VIRUS VAC CPT-4: G0008 04/15/2019 FLU VACC PRSV FREE INC ANTIG 65 AND OLDER CPT-4: 49793 04/15/2019 THER/PROPH/DIAG INJ SC/IM CPT-4: 39077 04/07/2019 TRIAMCINOLONE ACET INJ NOS CPT-4: J3301 04/07/2019 DEXAMETHASONE SODIUM PHOS CPT-4: J1100 04/07/2019 URINALYSIS NONAUTO W/O SCOPE CPT-4: 89289 03/18/2019 RML URINE CULTURE/ COLONY COUNT CPT-4: 67562 03/18/20 19 ROUTINE VENIPUNCTURE CPT-4: 83654 01/26/2019 RML COMPREHEN METABOLIC PANEL CPT-4: 73622 01/26/2019 RML COMPLETE CBC W/AUTO DIFF WBC CPT-4: 69358 019 RML URINE CULTURE/ COLONY COUNT CPT-4: 13062 01/27/20 19 URINALYSIS NONAUTO W/O SCOPE CPT-4: 16663 01/26/2019 THER/PROPH/DIAG INJ SC/IM CPT-4: 03838 01/08/2019 TRIAMCINOLONE ACET INJ NOS CPT-4: J3301 01/08/2019 THER/PROPH/DIAG INJ SC/IM CPT-4: 04161 01/06/2019 METHYLPREDNISOLONE INJECTION CPT-4: J2930 01/06/2019 AIRWAY INHALATION TREATMENT CPT-4: 92638 01/06/2019 RML URINE CULTURE/ COLONY COUNT CPT-4: 70562 01/07/20 19 PPPS, subseq visit CPT-4: G0439 12/11/2018 URINALYSIS NONAUTO W/O SCOPE CPT-4: 94149 12/11/2018 RML URINE CULTURE/ COLONY COUNT CPT-4: 13789 12/12/19 19 CULTURE OTHR SPECIMN AEROBIC CPT-4: 40330 12/11/2018 OCCULT BLOOD FECES CPT-4: 11031 12/11/2018 THER/PROPH/DIAG INJ SC/IM CPT-4: 27251 10/07/2018 TRIAMCINOLONE ACET INJ NOS CPT-4: J3301 10/07/2018 DEXAMETHASONE SODIUM PHOS CPT-4: J1100 10/07/2018 THER/PROPH/DIAG INJ SC/IM CPT-4: 88640 10/16/2017 TRIAMCINOLONE ACET INJ NOS CPT-4: J3301 10/16/2017 THER/PROPH/DIAG INJ SC/IM CPT-4: 74363 10/16/2017 KETOROLAC TROMETHAMINE INJ CPT-4: J1885 10/16/2017 INFLUENZA ASSAY W/OPTIC CPT-4: 63382 07/25/2017 FLU VACC PRSV FREE INC ANTIG 65 AND OLDER CPT-4: 00718 04/04/2017 PNEUMOCOCCAL VACC 23 DANAY IM CPT-4: 97390 04/04/2017 PPPS, subseq visit CPT-4: G0439 04/04/2017 ADMIN INFLUENZA VIRUS VAC CPT-4: G0008 04/04/2017 ADMIN PNEUMOCOCCAL VACCINE CPT-4: G0009 04/04/2017 URINALYSIS NONAUTO W/O SCOPE CPT-4: 99725 06/05/2016 FLU VACC PRSV FREE INC ANTIG 65 AND OLDER CPT-4: 60215 05/01/2016 ADMIN INFLUENZA VIRUS VAC CPT-4: G0008 05/01/2016 URINALYSIS NONAUTO W/O SCOPE CPT-4: 07361 11/08/2015 URINALYSIS NONAUTO W/O SCOPE CPT-4: 14686 03/28/2015 ADMIN INFLUENZA VIRUS VAC CPT-4: G0008 03/28/2015 FLU VACC PRSV FREE INC ANTIG 65 AND OLDER CPT-4: 74593 03/28/2015 PRESCRIP TRANSMIT VIA ERX SY CPT-4: G8553 03/28/2015 PNEUMOCOCCAL VACC 12 DANAY IM CPT-4: 87203 02/08/2015 ADMIN PNEUMOCOCCAL VACCINE CPT-4: G0009 02/08/2015 PRESCRIP TRANSMIT VIA ERX SY CPT-4: G8553 02/08/2015 [facility] URINE CULTURE/ COLONY COUNT CPT-4: 36245 01/12/20 15 URINALYSIS NONAUTO W/O SCOPE CPT-4: 06904 01/11/2015 PRESCRIP TRANSMIT VIA ERX SY CPT-4: G8553 01/11/2015 PRESCRIP TRANSMIT VIA ERX SY CPT-4: G8553 11/24/2014 URINALYSIS NONAUTO W/O SCOPE CPT-4: 41716 10/27/2014 RML URINE CULTURE/ COLONY COUNT CPT-4: 27993 10/28/19 15 PRESCRIP TRANSMIT VIA ERX SY CPT-4: G8553 10/27/2014 CEFTRIAXONE SODIUM INJECTION CPT-4: J0696 09/23/2014 THER/PROPH/DIAG INJ SC/IM CPT-4: 08847 09/23/2014 URINALYSIS NONAUTO W/O SCOPE CPT-4: 99774 09/23/2014 R[facility] URINE CULTURE/ COLONY COUNT CPT-4: 78513 09/24/19 15 PRESCRIP TRANSMIT VIA ERX SY CPT-4: G8553 09/23/2014 URINALYSIS NONAUTO W/O SCOPE CPT-4: 56573 03/30/2014 R[facility] URINE CULTURE/ COLONY COUNT CPT-4: 93068 03/30/20 14 PRESCRIP TRANSMIT VIA ERX SY CPT-4: G8553 03/30/2014 PRESCRIP TRANSMIT VIA ERX SY CPT-4: G8553 11/24/2013 PRESCRIP TRANSMIT VIA ERX SY CPT-4: G8553 06/29/2013 PRESCRIP TRANSMIT VIA ERX SY CPT-4: G8553 05/26/2013 PRESCRIP TRANSMIT VIA ERX SY CPT-4: G8553 04/23/2013 THER/PROPH/DIAG INJ SC/IM CPT-4: 93558 03/05/2013 KETOROLAC TROMETHAMINE INJ CPT-4: J1885 03/05/2013 PRESCRIP TRANSMIT VIA ERX SY CPT-4: G8553 11/27/2012 PRESCRIP TRANSMIT VIA ERX SY CPT-4: G8553 11/11/2012 PRESCRIP TRANSMIT VIA ERX SY CPT-4: G8553 09/03/2012 PRESCRIP TRANSMIT VIA ERX SY CPT-4: G8553 07/23/2012 PRESCRIP TRANSMIT VIA ERX SY CPT-4: G8553 05/20/2012 PRESCRIP TRANSMIT VIA ERX SY CPT-4: G8553 04/04/2012 DESTRUCT PREMALG LESION (Cryosurgery) CPT-4: 00836 PRESCRIP TRANSMIT VIA ERX SY CPT-4: G8553 01/02/2012 PRESCRIP TRANSMIT VIA ERX SY CPT-4: G8553 09/04/2011 URINALYSIS NONAUTO W/O SCOPE CPT-4: 75802 07/31/2011 PRESCRIP TRANSMIT VIA ERX SY CPT-4: G8553 07/12/2011 PRESCRIP TRANSMIT VIA ERX SY CPT-4: G8553 05/09/2011 THER/PROPH/DIAG INJ SC/IM CPT-4: 21410 05/02/2011 KETOROLAC TROMETHAMINE INJ CPT-4: J1885 05/02/2011 PRESCRIP TRANSMIT VIA ERX SY CPT-4: G8553 04/25/2011 CUR TOBACCO NON-USER CPT-4: G8457 04/04/2011 PRESCRIP TRANSMIT VIA ERX SY CPT-4: G8553 04/04/2011 DRAIN/INJECT JOINT/BURSA CPT-4: 47819 03/01/2011 METHYLPREDNISOLONE 40 MG INJ CPT-4: J1030 03/01/2011 TRIAMCINOLONE ACET INJ NOS CPT-4: J3301 03/01/2011 DRAIN/INJECT JOINT/BURSA CPT-4: 16330 01/04/2011 METHYLPREDNISOLONE 40 MG INJ CPT-4: J1030 01/04/2011 TRIAMCINOLONE ACET INJ NOS CPT-4: J3301 01/04/2011 PRESCRIP TRANSMIT VIA ERX SY CPT-4: G8553 12/07/2010 PRESCRIP TRANSMIT VIA ERX SY CPT-4: G8553 10/09/2010 PRESCRIP TRANSMIT VIA ERX SY CPT-4: G8553 06/06/2010 DRAIN/INJECT JOINT/BURSA CPT-4: 20166 04/12/2010 TRIAMCINOLONE ACET INJ NOS CPT-4: J3301 04/12/2010 METHYLPREDNISOLONE 80 MG INJ CPT-4: J1040 04/12/2010 PRESCRIP TRANSMIT VIA ERX SY CPT-4: G8553 03/20/2010 THER/PROPH/DIAG INJ SC/IM CPT-4: 15061 01/30/2010 KETOROLAC TROMETHAMINE INJ CPT-4: J1885 01/30/2010 PRESCRIP TRANSMIT VIA ERX SY CPT-4: G8553 01/30/2010 DRAIN/INJECT JOINT/BURSA CPT-4: 79298 10/26/2009 TRIAMCINOLONE ACET INJ NOS CPT-4: J3301 10/26/2009 METHYLPREDNISOLONE 80 MG INJ CPT-4: J1040 10/26/2009 DRAINAGE OF SKIN ABSCESS CPT-4: 26351 10/04/2009 Vital Signs Date Vital 09/05/2022 Blood Pressure 1: 124/78 Code: 8480-6 Heart Rate 1: 65 bpm Respiratory Rate: 20 bpm SpO2: 97% Temperature: 36.7 (C) / 98.0 (F) We ight: 224 lbs Code: 03035-3 08/30/2022 Blood Pressure 1: 124/74 Code: 8480-6 Heart Rate 1: 74 bpm Respiratory Rate: 20 bpm SpO2: 96% Temperature: 36.3 (C) / 97.3 (F) We ight: 224 lbs Code: 36599-9 08/07/2022 Blood Pressure 1: 126/74 Code: 8480-6 Heart Rate 1: 73 bpm Respiratory Rate: 20 bpm SpO2: 97% Temperature: 36.2 (C) / 97.1 (F) We ight: 222 lbs Code: 91518-3 06/29/2022 Blood Pressure 1: 132/73 Code: 8480-6 BMI: 36.7 Code: 58508-8 Heart Rate 1: 74 bpm Height: 5'6" Code: 8302-2 SpO2: 96% Temperature: 3 6.4 (C) / 97.6 (F) Weight: 226 lbs Code: 96050-9 05/28/2022 Blood Pressure 1: 129/78 Code: 8480-6 BMI: 37.7 Code: 42139-0 Heart Rate 1: 72 bpm Height: 5'6" Code: 8302-2 SpO2: 95% Temperature: 3 6.2 (C) / 97.1 (F) Weight: 232 lbs Code: 54734-7 05/10/2022 Blood Pressure 1: 133/75 Code: 8480-6 BMI: 38.3 Code: 29916-6 Heart Rate 1: 68 bpm Height: 5'6" Code: 8302-2 SpO2: 98% Temperature: 3 6.2 (C) / 97.1 (F) Weight: 236 lbs Code: 80165-6 04/18/2022 Blood Pressure 1: 118/70 Code: 8480-6 Heart Rate 1: 86 bpm Respiratory Rate: 20 bpm SpO2: 96% Temperature: 36.6 (C) / 97.8 (F) We ight: 238 lbs Code: 75238-5 02/15/2022 Blood Pressure 1: 120/82 Code: 8480-6 Heart Rate 1: 88 bpm Respiratory Rate: 20 bpm SpO2: 98% Temperature: 36.1 (C) / 97.0 (F) We ight: 237 lbs Code: 88893-1 02/06/2022 Blood Pressure 1: 124/80 Code: 8480-6 BMI: 39.4 Code: 57334-4 Heart Rate 1: 76 bpm Height: 5'6" Code: 8302-2 Respiratory Rate: 20 bpm SpO2: 98% Temperature: 36.6 (C) / 97.9 (F) Weight: 242 lbs Code: 18957-1 02/01/2022 Blood Pressure 1: 144/100 Code: 8480-6 Heart Rat e 1: 108 bpm Respiratory Rate: 22 bpm SpO2: 96% Temperature: 36.4 (C) / 97.5 (F) 11/29/2021 Blood Pressure 1: 128/80 Code: 8480-6 Heart Rate 1: 56 bpm Respiratory Rate: 20 bpm SpO2: 97% Temperature: 36.7 (C) / 98.1 (F) We ight: 242 lbs Code: 76080-9 11/22/2021 Blood Pressure 1: 118/80 Code: 8480-6 Heart Rate 1: 84 bpm Respiratory Rate: 20 bpm SpO2: 99% Temperature: 36.3 (C) / 97.4 (F) 11/21/2021 Blood Pressure 1: 132/80 Code: 8480-6 Heart Rate 1: 98 bpm Respiratory Rate: 20 bpm SpO2: 99% Weight: 238 lbs Code: 73877 -7 11/09/2021 Blood Pressure 1: 136/86 Code: 8480-6 Heart Rate 1: 68 bpm Respiratory Rate: 20 bpm SpO2: 95% Temperature: 36.4 (C) / 97.5 (F) We ight: 244 lbs Code: 72976-4 10/31/2021 Blood Pressure 1: 128/80 Code: 8480-6 Heart Rate 1: 80 bpm Respiratory Rate: 28 bpm SpO2: 93% Temperature: 38.0 (C) / 100. 4 (F) 10/30/2021 Blood Pressure 1: 136/82 Code: 8480-6 Heart Rate 1: 120 bpm Respiratory Rate: 24 bpm SpO2: 95% Temperature: 38.0 (C) / 100. 4 (F) 09/05/2021 Blood Pressure 1: 118/84 Code: 8480-6 BMI: 38.5 Code: 04101-6 Heart Rate 1: 72 bpm Height: 5'7" Code: 8302-2 Respiratory Rate: 20 bpm SpO2: 95% Temperature: 36.3 (C) / 97.4 (F) Weight: 246 lbs Code: 66563-2 08/24/2021 Blood Pressure 1: 132/84 Code: 8480-6 Heart Rate 1: 76 bpm Respiratory Rate: 19 bpm SpO2: 98% Temperature: 36.7 (C) / 98.1 (F) We ight: Code: 50503-5 03/01/2021 Blood Pressure 1: 90/52 Code: 8480-6 Heart Rate 1: 66 bpm Respiratory Rate: 22 bpm SpO2: 97% 02/08/2021 Blood Pressure 1: 132/75 Code: 8480-6 Heart Rate 1: 74 bpm Respiratory Rate: 18 bpm SpO2: 98% Temperature: 36.3 (C) / 97.3 (F) We ight: 247 lbs Code: 38387-1 01/19/2021 Blood Pressure 1: 126/76 Code: 8480-6 Heart Rate 1: 76 bpm Respiratory Rate: 20 bpm SpO2: 98% Temperature: 37.1 (C) / 98.8 (F) We ight: 244 lbs Code: 93652-7 01/03/2021 Blood Pressure 1: 124/64 Code: 8480-6 BMI: 38.5 Code: 35342-2 Heart Rate 1: 76 bpm Height: 5'7" Code: 8302-2 Respiratory Rate: 20 bpm SpO2: 96% Temperature: 36.4 (C) / 97.6 (F) Weight: 246 lbs Code: 69116-9 11/29/2020 Blood Pressure 1: 119/68 Code: 8480-6 Heart Rate 1: 73 bpm Respiratory Rate: 20 bpm SpO2: 95% Temperature: 36.1 (C) / 96.9 (F) We ight: 245 lbs Code: 92657-4 09/29/2020 Blood Pressure 1: 136/79 Code: 8480-6 Heart Rate 1: 67 bpm Respiratory Rate: 15 bpm SpO2: 98% Temperature: 36.2 (C) / 97.1 (F) We ight: 237 lbs Code: 88780-1 09/19/2020 Blood Pressure 1: 135/82 Code: 8480-6 Heart Rate 1: 76 bpm Respiratory Rate: 17 bpm SpO2: 96% Temperature: 36.6 (C) / 97.8 (F) We ight: 238 lbs Code: 72350-4 08/10/2020 Blood Pressure 1: 126/82 Code: 8480-6 Heart Rate 1: 60 bpm Respiratory Rate: 20 bpm SpO2: 96% Temperature: 36.3 (C) / 97.3 (F) We ight: 238 lbs Code: 01990-6 08/01/2020 Temperature: 36.6 (C) / 97.8 (F) 07/13/2020 Blood Pressure 1: 132/80 Code: 8480-6 Heart Rate 1: 76 bpm Respiratory Rate: 20 bpm SpO2: 97% Temperature: 36.2 (C) / 97.2 (F) We ight: 228 lbs Code: 21845-8 07/05/2020 Temperature: 35.9 (C) / 96.7 (F) 06/22/2020 Blood Pressure 1: 134/82 Code: 8480-6 Heart Rate 1: 60 bpm Respiratory Rate: 20 bpm SpO2: 96% Temperature: 36.4 (C) / 97.6 (F) We ight: 235 lbs Code: 84059-2 05/17/2020 Blood Pressure 1: 141/72 Code: 8480-6 Heart Rate 1: 78 bpm Respiratory Rate: 16 bpm SpO2: 98% Temperature: 36.3 (C) / 97.3 (F) We ight: 232 lbs Code: 32057-1 03/14/2020 Blood Pressure 1: 126/92 Code: 8480-6 Heart Rate 1: 72 bpm Respiratory Rate: 22 bpm SpO2: 96% Temperature: 36.3 (C) / 97.4 (F) We ight: 225 lbs Code: 20962-1 03/07/2020 Blood Pressure 1: 124/86 Code: 8480-6 Heart Rate 1: 72 bpm Respiratory Rate: 24 bpm SpO2: 93% Temperature: 36.2 (C) / 97.1 (F) We ight: 227 lbs Code: 28403-7 12/21/2019 Blood Pressure 1: 114/72 Code: 8480-6 BMI: 36.2 Code: 88356-2 Heart Rate 1: 60 bpm Height: 5'7" Code: 8302-2 Respiratory Rate: 20 bpm SpO2: 97% Temperature: 36.7 (C) / 98.1 (F) Weight: 231 lbs Code: 06293-3 09/02/2019 Blood Pressure 1: 138/85 Code: 8480-6 Heart Rate 1: 76 bpm Respiratory Rate: 20 bpm SpO2: 96% Temperature: 36.3 (C) / 97.3 (F) We ight: 226 lbs Code: 53792-2 07/09/2019 Blood Pressure 1: 123/63 Code: 8480-6 BMI: 34.9 Code: 21335-4 Heart Rate 1: 64 bpm Height: 5'7" Code: 8302-2 Respiratory Rate: 17 bpm SpO2: 97% Temperature: 37.0 (C) / 98.6 (F) Weight: 223 lbs Code: 57214-6 04/15/2019 Blood Pressure 1: 110/82 Code: 8480-6 Heart Rate 1: 66 bpm SpO2: 98% Temperature: 36.1 (C) / 96.9 (F) Weight: 223 lbs Code: 37164-3 04/07/2019 Blood Pressure 1: 132/80 Code: 8480-6 Heart Rate 1: 68 bpm Temperature: 36.9 (C) / 98.4 (F) Weight: 222 lbs Code: 84108-8 03/25/2019 Blood Pressure 1: 108/70 Code: 8480-6 Heart Rate 1: 64 bpm Respiratory Rate: 20 bpm SpO2: 96% Temperature: 36.2 (C) / 97.2 (F) We ight: 221 lbs Code: 42172-3 03/18/2019 Blood Pressure 1: 138/82 Code: 8480-6 Heart Rate 1: 74 bpm SpO2: 99% Temperature: 36.1 (C) / 96.9 (F) Weight: 223 lbs Code: 63171-4 01/26/2019 Blood Pressure 1: 138/90 Code: 8480-6 Heart Rate 1: 68 bpm SpO2: 96% Temperature: 35.9 (C) / 96.7 (F) Weight: 227 lbs Code: 13683-3 01/08/2019 Blood Pressure 1: 134/78 Code: 8480-6 BMI: 36.8 Code: 86636-8 Heart Rate 1: 76 bpm Height: 5'7" Code: 8302-2 SpO2: 93% Temperature: 3 6.4 (C) / 97.6 (F) Weight: 235 lbs Code: 85549-3 01/06/2019 Blood Pressure 1: 116/80 Code: 8480-6 Heart Rate 1: 72 bpm Respiratory Rate: 20 bpm SpO2: 98% Temperature: 36.5 (C) / 97.7 (F) We ight: 232 lbs Code: 15261-3 12/11/2018 Blood Pressure 1: 120/82 Code: 8480-6 BMI: 36.2 Code: 16592-2 Heart Rate 1: 67 bpm Height: 5'7" Code: 8302-2 Respiratory Rate: 18 bpm SpO2: 96% Temperature: 35.9 (C) / 96.7 (F) Weight: 231 lbs Code: 70592-8 10/30/2018 Blood Pressure 1: 126/82 Code: 8480-6 Heart Rate 1: 80 bpm Respiratory Rate: 20 bpm SpO2: 96% Temperature: 36.8 (C) / 98.3 (F) We ight: 228 lbs Code: 06890-1 10/07/2018 Blood Pressure 1: 130/90 Code: 8480-6 Heart Rate 1: 76 bpm Respiratory Rate: 24 bpm SpO2: 97% Temperature: 36.0 (C) / 96.8 (F) We ight: 229 lbs Code: 96154-6 06/23/2018 Blood Pressure 1: 132/80 Code: 8480-6 Heart Rate 1: 72 bpm Respiratory Rate: 20 bpm SpO2: 98% Temperature: 36.7 (C) / 98.0 (F) We ight: 233 lbs Code: 04241-4 01/16/2018 Blood Pressure 1: 116/82 Code: 8480-6 Heart Rate 1: 72 bpm Respiratory Rate: 20 bpm SpO2: 96% Temperature: 36.9 (C) / 98.5 (F) We ight: 230 lbs Code: 57756-4 10/16/2017 Blood Pressure 1: 116/74 Code: 8480-6 BMI: 35.1 Code: 25282-8 Heart Rate 1: 76 bpm Height: 5'7" Code: 8302-2 Respiratory Rate: 20 bpm SpO2: 98% Temperature: 36.7 (C) / 98.1 (F) Weight: 224 lbs Code: 06956-9 09/12/2017 Blood Pressure 1: 124/78 Code: 8480-6 BMI: 34.6 Code: 58723-8 Heart Rate 1: 84 bpm Height: 5'7" Code: 8302-2 Respiratory Rate: 20 bpm SpO2: 95% Temperature: 36.6 (C) / 97.8 (F) Weight: 221 lbs Code: 08747-3 08/20/2017 Blood Pressure 1: 126/78 Code: 8480-6 Heart Rate 1: 92 bpm Height: 5'7" Code: 8302-2 Respiratory Rate: 20 bpm SpO2: 96% Temperature: 36 .9 (C) / 98.5 (F) 08/13/2017 Blood Pressure 1: 124/80 Code: 8480-6 BMI: 34.8 Code: 04008-5 Heart Rate 1: 80 bpm Height: 5'7" Code: 8302-2 Respiratory Rate: 20 bpm SpO2: 96% Temperature: 36.7 (C) / 98.0 (F) Weight: 222 lbs Code: 19927-7 07/29/2017 Blood Pressure 1: 114/70 Code: 8480-6 BMI: 34.5 Code: 21306-7 Heart Rate 1: 76 bpm Height: 5'7" Code: 8302-2 Respiratory Rate: 20 bpm SpO2: 97% Temperature: 36.9 (C) / 98.4 (F) Weight: 220 lbs Code: 53851-2 07/25/2017 Blood Pressure 1: 142/76 Code: 8480-6 BMI: 34.9 Code: 33915-4 Heart Rate 1: 92 bpm Height: 5'7" Code: 8302-2 Respiratory Rate: 18 bpm SpO2: 96% Temperature: 36.7 (C) / 98.1 (F) Weight: 223 lbs Code: 91812-2 06/10/2017 Blood Pressure 1: 136/82 Code: 8480-6 BMI: 34.3 Code: 80096-1 Heart Rate 1: 68 bpm Height: 5'7" Code: 8302-2 Respiratory Rate: 20 bpm SpO2: 96% Temperature: 36.7 (C) / 98.0 (F) Weight: 219 lbs Code: 90431-8 05/28/2017 Blood Pressure 1: 136/70 Code: 8480-6 BMI: 34.1 Code: 71209-5 Heart Rate 1: 84 bpm Height: 5'7" Code: 8302-2 Respiratory Rate: 20 bpm SpO2: 95% Temperature: 35.9 (C) / 96.6 (F) Weight: 218 lbs Code: 16574-4 04/04/2017 Blood Pressure 1: 122/78 Code: 8480-6 BMI: 33.4 Code: 96633-6 Heart Rate 1: 68 bpm Height: 5'7" Code: 8302-2 Respiratory Rate: 20 bpm SpO2: 96% Temperature: 36.7 (C) / 98.0 (F) Weight: 213 lbs Code: 88102-9 11/28/2016 Blood Pressure 1: 114/82 Code: 8480-6 BMI: 33.7 Code: 29134-7 Heart Rate 1: 72 bpm Height: 5'7" Code: 8302-2 Respiratory Rate: 20 bpm SpO2: 98% Temperature: 36.4 (C) / 97.6 (F) Weight: 215 lbs Code: 79592-7 06/05/2016 Blood Pressure 1: 104/68 Code: 8480-6 BMI: 33.7 Code: 62092-7 Heart Rate 1: 68 bpm Height: 5'7" Code: 8302-2 Respiratory Rate: 20 bpm SpO2: 96% Temperature: 36.8 (C) / 98.2 (F) Weight: 215 lbs Code: 81738-1 11/08/2015 Blood Pressure 1: 122/70 Code: 8480-6 BMI: 33.8 Code: 34633-5 Heart Rate 1: 80 bpm Height: 5'7" Code: 8302-2 Respiratory Rate: 20 bpm Temperatu re: 36.8 (C) / 98.2 (F) Weight: 216 lbs Code: 17192-1 07/19/2015 Blood Pressure 1: 122/70 Code: 8480-6 BMI: 33.0 Code: 92787-6 Heart Rate 1: 80 bpm Height: 5'7" Code: 8302-2 Respiratory Rate: 18 bpm Temperatu re: 35.9 (C) / 96.6 (F) Weight: 211 lbs Code: 16705-7 03/28/2015 Blood Pressure 1: 124/70 Code: 8480-6 BMI: 31.8 Code: 07929-9 Heart Rate 1: 72 bpm Height: 5'7" Code: 8302-2 Respiratory Rate: 20 bpm Temperatu re: 36.8 (C) / 98.2 (F) Weight: 203 lbs Code: 42050-0 02/08/2015 Blood Pressure 1: 98/58 Code: 8480-6 BMI: 32.1 C ode: 63324-2 Heart Rate 1: 84 bpm Height: 5'7" Code: 8302-2 Respiratory Rate: 20 bpm Temperatu re: 36.7 (C) / 98.0 (F) Weight: 205 lbs Code: 00362-8 01/11/2015 Blood Pressure 1: 118/78 Code: 8480-6 BMI: 32.1 Code: 59670-0 Heart Rate 1: 84 bpm Height: 5'7" Code: 8302-2 Respiratory Rate: 20 bpm Temperatu re: 36.6 (C) / 97.9 (F) Weight: 205 lbs Code: 82828-2 11/24/2014 Blood Pressure 1: 124/80 Code: 8480-6 BMI: 32.0 Code: 10731-2 Heart Rate 1: 76 bpm Height: 5'7" Code: 8302-2 Respiratory Rate: 20 bpm Temperatu re: 36.2 (C) / 97.1 (F) Weight: 204 lbs Code: 35711-3 11/19/2014 Blood Pressure 1: 132/78 Code: 8480-6 BMI: 32.7 Code: 07354-6 Heart Rate 1: 68 bpm Height: 5'7" Code: 8302-2 Respiratory Rate: 20 bpm SpO2: 98% Temperature: 36.7 (C) / 98.0 (F) Weight: 209 lbs Code: 09766-0 10/27/2014 Blood Pressure 1: 118/76 Code: 8480-6 BMI: 32.6 Code: 56085-0 Heart Rate 1: 64 bpm Height: 5'7" Code: 8302-2 Respiratory Rate: 20 bpm Temperatu re: 36.7 (C) / 98.0 (F) Weight: 208 lbs Code: 68042-2 09/23/2014 Blood Pressure 1: 118/68 Code: 8480-6 BMI: 34.3 Code: 11321-2 Heart Rate 1: 78 bpm Height: 5'7" Code: 8302-2 Respiratory Rate: 22 bpm Temperatu re: 36.4 (C) / 97.6 (F) Weight: 219 lbs Code: 64943-2 07/28/2014 Blood Pressure 1: 126/80 Code: 8480-6 BMI: 33.5 Code: 04578-6 Heart Rate 1: 76 bpm Height: 5'7" Code: 8302-2 Respiratory Rate: 20 bpm Temperatu re: 36.4 (C) / 97.6 (F) Weight: 214 lbs Code: 39407-9 03/30/2014 Blood Pressure 1: 128/80 Code: 8480-6 BMI: 35.2 Code: 23737-4 Heart Rate 1: 88 bpm Height: 5'7" Code: 8302-2 Respiratory Rate: 20 bpm Temperatu re: 36.4 (C) / 97.6 (F) Weight: 225 lbs Code: 34315-7 11/24/2013 Blood Pressure 1: 124/82 Code: 8480-6 BMI: 35.6 Code: 44799-4 Heart Rate 1: 80 bpm Height: 5'7" Code: 8302-2 Respiratory Rate: 22 bpm Temperatu re: 36.2 (C) / 97.1 (F) Weight: 227 lbs Code: 31652-7 08/25/2013 Blood Pressure 1: 128/80 Code: 8480-6 BMI: 37.4 Code: 51041-9 Heart Rate 1: 76 bpm Height: 5'7" Code: 8302-2 Respiratory Rate: 20 bpm Temperatu re: 36.6 (C) / 97.9 (F) Weight: 239 lbs Code: 89307-2 06/29/2013 Blood Pressure 1: 106/78 Code: 8480-6 BMI: 38.1 Code: 49235-0 Heart Rate 1: 80 bpm Height: 5'7" Code: 8302-2 Respiratory Rate: 20 bpm Temperatu re: 36.6 (C) / 97.9 (F) Weight: 243 lbs Code: 89788-1 05/26/2013 Blood Pressure 1: 122/80 Code: 8480-6 BMI: 39.3 Code: 65846-4 Heart Rate 1: 80 bpm Height: 5'7" Code: 8302-2 Respiratory Rate: 20 bpm Temperatu re: 36.9 (C) / 98.4 (F) Weight: 251 lbs Code: 57391-0 05/06/2013 Blood Pressure 1: 128/78 Code: 8480-6 BMI: 39.2 Code: 48457-3 Heart Rate 1: 76 bpm Height: 5'7" Code: 8302-2 Respiratory Rate: 22 bpm Temperatu re: 35.8 (C) / 96.4 (F) Weight: 250 lbs Code: 40423-0 04/23/2013 Blood Pressure 1: 132/92 Code: 8480-6 BMI: 39.6 Code: 25144-8 Heart Rate 1: 88 bpm Height: 5'7" Code: 8302-2 Respiratory Rate: 28 bpm SpO2: 97% Temperature: 36.5 (C) / 97.7 (F) Weight: 253 lbs Code: 69892-9 03/31/2013 Blood Pressure 1: 122/80 Code: 8480-6 BMI: 39.0 Code: 67950-9 Heart Rate 1: 84 bpm Height: 5'7" Code: 8302-2 Respiratory Rate: 20 bpm Temperatu re: 36.6 (C) / 97.8 (F) Weight: 249 lbs Code: 25375-4 03/05/2013 Blood Pressure 1: 120/80 Code: 8480-6 BMI: 39.2 Code: 10836-2 Heart Rate 1: 60 bpm Height: 5'7" Code: 8302-2 Respiratory Rate: 22 bpm Temperatu re: 35.9 (C) / 96.6 (F) Weight: 250 lbs Code: 22315-3 02/04/2013 Blood Pressure 1: 124/80 Code: 8480-6 BMI: 38.4 Code: 70996-6 Heart Rate 1: 80 bpm Height: 5'7" Code: 8302-2 Respiratory Rate: 20 bpm Temperatu re: 36.4 (C) / 97.6 (F) Weight: 245 lbs Code: 20444-4 11/27/2012 Blood Pressure 1: 127/83 Code: 8480-6 Te mperature: 36.1 (C) / 96.9 (F) Weight: 243 lbs 2 oz Code: 96481-9 11/11/2012 Blood Pressure 1: 126/82 Code: 8480-6 BMI: 37.4 Code: 34849-2 Heart Rate 1: 80 bpm Height: 5'7" Code: 8302-2 Respiratory Rate: 20 bpm Temperatu re: 36.8 (C) / 98.2 (F) Weight: 239 lbs Code: 34365-8 10/20/2012 Blood Pressure 1: 114/80 Code: 8480-6 BMI: 37.1 Code: 31279-8 Heart Rate 1: 104 bpm Height: 5'7" Code: 8302-2 Respiratory Rate: 20 bpm Temperatu re: 36.9 (C) / 98.4 (F) Weight: 237 lbs Code: 17777-0 09/03/2012 Blood Pressure 1: 118/72 Code: 8480-6 BMI: 37.3 Code: 19983-3 Heart Rate 1: 70 bpm Height: 5'7" Code: 8302-2 Temperature: 35.6 (C) / 96.0 (F) Weight: 238 lbs Code: 05267-9 07/23/2012 Blood Pressure 1: 124/78 Code: 8480-6 BMI: 36.8 Code: 41231-6 Heart Rate 1: 68 bpm Height: 5'7" Code: 8302-2 Temperature: 35.6 (C) / 96.0 (F) Weight: 235 lbs Code: 78772-7 05/20/2012 Blood Pressure 1: 112/70 Code: 8480-6 BMI: 37.1 Code: 89636-3 Heart Rate 1: 76 bpm Height: 5'7" Code: 8302-2 Respiratory Rate: 20 bpm Temperatu re: 36.7 (C) / 98.1 (F) Weight: 237 lbs Code: 81446-9 04/04/2012 Blood Pressure 1: 110/64 Code: 8480-6 BMI: 37.1 Code: 79001-2 Heart Rate 1: 68 bpm Height: 5'7" Code: 8302-2 Temperature: 36.1 (C) / 97.0 (F) Weight: 237 lbs Code: 01456-3 02/20/2012 Blood Pressure 1: 136/78 Code: 8480-6 BMI: 37.1 Code: 05728-3 Heart Rate 1: 72 bpm Height: 5'7" Code: 8302-2 Respiratory Rate: 20 bpm Temperatu re: 36.7 (C) / 98.0 (F) Weight: 237 lbs Code: 78907-2 01/02/2012 Blood Pressure 1: 122/70 Code: 8480-6 BMI: 37.1 Code: 66955-8 Heart Rate 1: 76 bpm Height: 5'7" Code: 8302-2 Respiratory Rate: 20 bpm Temperatu re: 37.0 (C) / 98.6 (F) Weight: 237 lbs Code: 35987-9 09/04/2011 Blood Pressure 1: 120/84 Code: 8480-6 BMI: 35.4 Code: 76651-6 Heart Rate 1: 68 bpm Height: 5'7" Code: 8302-2 Temperature: 30.0 (C) / 86.0 (F) Weight: 226 lbs Code: 48187-8 08/14/2011 Blood Pressure 1: 120/82 Code: 8480-6 BMI: 36.5 Code: 13185-5 Heart Rate 1: 80 bpm Height: 5'7" Code: 8302-2 Temperature: 36.6 (C) / 97.8 (F) Weight: 233 lbs Code: 58868-0 07/31/2011 Blood Pressure 1: 138/86 Code: 8480-6 BMI: 37.0 Code: 44513-3 Heart Rate 1: 94 bpm Height: 5'7" Code: 8302-2 Temperature: 35.4 (C) / 95.7 (F) Weight: 236 lbs Code: 92181-5 07/25/2011 Blood Pressure 1: 128/80 Code: 8480-6 BMI: 37.0 Code: 78563-5 Heart Rate 1: 80 bpm Height: 5'7" Code: 8302-2 Temperature: 35.6 (C) / 96.0 (F) Weight: 236 lbs Code: 05313-7 07/12/2011 Blood Pressure 1: 132/80 Code: 8480-6 BMI: 37.0 Code: 01305-2 Heart Rate 1: 96 bpm Height: 5'7" Code: 8302-2 Respiratory Rate: 20 bpm Temperatu re: 36.3 (C) / 97.3 (F) Weight: 236 lbs Code: 61458-4 05/09/2011 Blood Pressure 1: 106/78 Code: 8480-6 BMI: 36.6 Code: 36873-4 Heart Rate 1: 72 bpm Height: 5'7" Code: 8302-2 Respiratory Rate: 20 bpm Temperatu re: 36.4 (C) / 97.6 (F) Weight: 234 lbs Code: 99774-3 05/02/2011 Blood Pressure 1: 96/72 Code: 8480-6 BMI: 36.6 C ode: 79498-0 Heart Rate 1: 108 bpm Height: 5'7" Code: 8302-2 Respiratory Rate: 24 bpm Temperatu re: 36.7 (C) / 98.0 (F) Weight: 234 lbs Code: 49812-5 04/25/2011 Blood Pressure 1: 120/72 Code: 8480-6 BMI: 36.5 Code: 99974-4 Heart Rate 1: 70 bpm Height: 5'7" Code: 8302-2 Temperature: 36.7 (C) / 98.0 (F) Weight: 233 lbs Code: 39413-6 04/04/2011 Blood Pressure 1: 126/92 Code: 8480-6 BMI: 36.5 Code: 77761-8 Heart Rate 1: 84 bpm Height: 5'7" Code: 8302-2 Respiratory Rate: 20 bpm Temperatu re: 36.2 (C) / 97.2 (F) Weight: 233 lbs Code: 37408-6 03/01/2011 Blood Pressure 1: 132/78 Code: 8480-6 Heart Rate 1: 88 bpm Temperature: 36.8 (C) / 98.2 (F) Weight: 231 lbs Code: 91970-9 01/04/2011 Blood Pressure 1: 122/78 Code: 8480-6 BMI: 37.0 Code: 12464-0 Heart Rate 1: 80 bpm Height: 5'7" Code: 8302-2 Temperature: 37.0 (C) / 98.6 (F) Weight: 236 lbs Code: 69368-1 12/07/2010 Blood Pressure 1: 132/92 Code: 8480-6 Heart Rate 1: 98 bpm Temperature: 36.2 (C) / 97.2 (F) Weight: 237 lbs Code: 67153-3 10/09/2010 Blood Pressure 1: 128/80 Code: 8480-6 Heart Rate 1: 72 bpm Temperature: 36.5 (C) / 97.7 (F) Weight: 244 lbs Code: 48561-0 08/07/2010 Blood Pressure 1: 114/80 Code: 8480-6 Heart Rate 1: 72 bpm Temperature: 36.2 (C) / 97.1 (F) Weight: 245 lbs Code: 67064-8 06/06/2010 Blood Pressure 1: 132/86 Code: 8480-6 Heart Rate 1: 80 bpm Temperature: 36.8 (C) / 98.2 (F) Weight: 242 lbs Code: 42549-5 04/12/2010 Blood Pressure 1: 126/82 Code: 8480-6 Heart Rate 1: 72 bpm Temperature: 36.8 (C) / 98.2 (F) Weight: 237 lbs Code: 18994-6 03/20/2010 Blood Pressure 1: 124/78 Code: 8480-6 Heart Rate 1: 76 bpm Temperature: 36.1 (C) / 97.0 (F) Weight: 239 lbs Code: 44426-7 01/30/2010 Blood Pressure 1: 118/80 Code: 8480-6 Heart Rate 1: 84 bpm Temperature: 37.1 (C) / 98.7 (F) Weight: 239 lbs Code: 16848-0 01/09/2010 Blood Pressure 1: 120/72 Code: 8480-6 BMI: 36.8 Code: 47060-3 Heart Rate 1: 80 bpm Height: 5'7" Code: 8302-2 Temperature: 36.1 (C) / 97.0 (F) Weight: 235 lbs Code: 38678-2 11/07/2009 Blood Pressure 1: 140/36 Cod e: 8480-6 10/26/2009 Blood Pressure 1: 126/82 Code: 8480-6 BMI: 36.9 Code: 36031-6 Heart Rate 1: 84 bpm Height: 5'7" Code: 8302-2 Temperature: 36.5 (C) / 97.7 (F) Weight: 234 lbs Code: 43198-8 10/17/2009 Blood Pressure 1: 140/88 Code: 8480-6 BMI: 36.3 Code: 41012-3 Heart Rate 1: 88 bpm Height: 5'7" Code: 8302-2 Temperature: 36.7 (C) / 98.0 (F) Weight: 232 lbs Code: 05301-0 10/04/2009 Blood Pressure 1: 140/90 Code: 8480-6 BMI: 36.3 Code: 12631-4 Heart Rate 1: 84 bpm Height: 5'7" Code: 8302-2 Temperature: 36.4 (C) / 97.6 (F) Weight: 232 lbs Code: 41574-7 09/21/2009 Blood Pressure 1: 136/82 Code: 8480-6 BMI: 36.3 Code: 62189-9 Heart Rate 1: 88 bpm Height: 5'7" Code: 8302-2 Temperature: 35.8 (C) / 96.4 (F) Weight: 232 lbs Code: 50525-8 Functional Status No Functional Status data Reason [...] 09/04/2011 chest congestion 09/04/2011 follow up 08/14/2011 [facility] 08/14/2011 venous thrombosis 08/14/2011 abdominal pain [...] Encounter Performer Location Location Address Codes Date ([id number]) OFFICE/OUTPATIENT VISIT EST Diagnosis: Acute cystitis[ICD10: N30.00] Marlene Kenyonverenice Sanchez JESSICAMARIALUISA [employer] [address] [place] [id number] CPT-4: 31202 09/05/2022 ([id number]) OFFICE/OUTPATIENT VISIT EST Diagnosis: Degeneration of lumbar or lumbosacral intervertebral disc[ICD10: M51.37] Diagnosis: Cervicalgia[ICD10: M54.2] Marlene Kenyonverenice ELAM [employer] [address] [place] [id number] CPT-4: 16180 08/30/2022 ([id number]) OFFICE/OUTPATIENT VISIT EST Diagnosis: Hypothyroidism[ICD10: E03.9] Diagnosis: Essential (primary) hypertension[ICD10: I10] Diagnosis: Mixed hyperlipidemia[ICD10: E78.2] Diagnosis: Stress at home[ICD10: F43.9] Jayna Sanchez JESSICAMARIALUISA [employer] [address] [place] [address] CPT-4: 87521 08/07/2022 ([id number]) OFFICE/OUTPATIENT VISIT EST Diagnosis: Acute cystitis[ICD10: N30.00] Marlene Kenyonverenice aSnchez JESSICAMARIALUISA [employer] [address] [place] [address] CPT-4: 34384 06/29/2022 ([id number]) OFFICE/OUTPATIENT VISIT EST Diagnosis: Depression[ICD10: F32.A] Diagnosis: Hypothyroidism[ICD10: E03.9] Jayna Sanchez JANISAPOLINAR [employer] [address] [place] [address] CPT-4: 56002 05/28/2022 ([id number]) OFFICE/OUTPATIENT VISIT EST Diagnosis: Depression[ICD10: F32.A] Diagnosis: Fatigue[ICD10: R53.83] Diagnosis: Hypothyroidism[ICD10: E03.9] Diagnosis: Hyperglycemia[ICD10: R73.9] Jayna PUCKETT [address] [address] CPT-4: 98775 05/10/2022 ([id number]) OFFICE/OUTPATIENT VISIT EST Diagnosis: Migraine, intractable[ICD10: G43.919] Marlene Kenyonverenice EZEQUIEL BRUCE[address] [address] CPT-4: 96328 04/18/2022 ([id number]) NURSE/OUTPATIENT VISIT EST Diagnosis: FLU VACCINE[ICD10: Z23] Jayna JIANG [address] [address] CPT-4: 85664 04/05/2022 ([id number]) OFFICE/OUTPATIENT VISIT EST Diagnosis: Allergic rhinitis[ICD10: J30.9] Diagnosis: Acute sinusitis[ICD10: J01.90] 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] Jayna VANESSA [address] [address] CPT-4: 99897 02/15/2022 ([id number]) Annual depression screening, 15 minutes Diagnosis: Encounter for general adult medical examination without abnormal findings[ICD10: Z00.00] Diagnosis: Essential (primary) hypertension[ICD10: I10] Diagnosis: Mixed hyperlipidemia[ICD10: E78.2] Diagnosis: Hypothyroidism, unspecified[ICD10: E03.9] Diagnosis: Chronic obstructive pulmonary disease, unspecified[ICD10: J44.9] Jayna [address] [address] CPT-4: G0444 02/06/2022 ([id number]) OFFICE/OUTPATIENT VISIT EST Diagnosis: 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] Diagnosis: Vision changes[ICD10: H53.9] Latasha VANESSA DO [address] [address] CPT-4: 31129 02/01/2022 ([id number]) OFFICE/OUTPATIENT VISIT EST Diagnosis: Diarrhea[ICD10: R19.7] Diagnosis: Cough[ICD10: R05.9] Jayna MORILLOLINE Daniel VANESSA DO [address] [address] CPT-4: 25187 11/30/19 ([id number]) OFFICE/OUTPATIENT VISIT EST Diagnosis: Post-viral cough syndrome[ICD10: R05.8] Diagnosis: Otalgia of both ears[ICD10: H92.03] Diagnosis: Diarrhea[ICD10: R19.7] Jayna GUTIERREZ TracyPaige BIANCA Villalba DO [address] [address] CPT-4: 11635 11/22/2021 ([id number]) OFFICE/OUTPATIENT VISIT EST Diagnosis: Diarrhea of presumed infectious origin[ICD10: R19.7] Diagnosis: Altered taste[ICD10: R43.2] Diagnosis: Chronic bronchitis[ICD10: J42] Diagnosis: History of recent pneumonia[ICD10: Z87.01] Latasha VANESSA DO [address] [address] CPT- 4: 33908 11/21/2021 ([id number]) OFFICE/OUTPATIENT VISIT EST Diagnosis: Serous otitis media[ICD10: H65.90] Diagnosis: Postnasal drip[ICD10: R09.82] Diagnosis: Pneumonia[ICD10: J18.9] Jayna Jessicamarialuisa GUTIERREZ TracyPaige JANIS ER DO [address] [address] CPT-4: 00800 11/09/2021 ([id number]) NO CHARGE Diagnosis: Pneumonia[ICD10: J18.9] Diagnosis: Respiratory distress[ICD10: R06.03] Jayna KENNEY TracyPaige JANISER DO [address] [address] CPT-4: 76820 10/31/2021 ([id number]) OFFICE/OUTPATIENT VISIT EST Diagnosis: Vertigo[ICD10: R42] Diagnosis: Nausea[ICD10: R11.0] Diagnosis: Pneumonia[ICD10: J18.9] Jayna [facility] [address] [place] [address] CPT-4: 06143 10/30/2021 ([id number]) OFFICE/OUTPATIENT VISIT EST Diagnosis: Cervicalgia[ICD10: M54.2] Jayna [facility]G [facility] [address] [place] [address] CPT-4: 02735 09/05/2021 ([id number]) OFFICE/OUTPATIENT VISIT EST Diagnosis: 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] Diagnosis: Seronegative rheumatoid arthritis[ICD10: M06.00] Latasha Castillomarthahoa VANESSA DO [address] [address] CPT- 4: 03387 08/24/2021 ([id number]) OFFICE/OUTPATIENT VISIT EST Diagnosis: Upper respiratory infection[ICD10: J06.9] Diagnosis: Contact with and (suspected) exposure to other viral communicable diseases[ICD10: Z20.828] Latasha Castillomatthew JAYNA VANESSA DO [address] [address] CPT-4: 86740 07/04/2021 ([id number]) NURSE/OUTPATIENT VISIT EST Diagnosis: FLU VACCINE[ICD10: Z23] Jayna [facility] [address] [place] [address] CPT-4: 68933 03/29/2021 ([id number]) OFFICE/OUTPATIENT VISIT EST Diagnosis: Vasovagal episode[ICD10: R55] Diagnosis: Orthostatic hypotension[ICD10: I95.1] Latasha Castillomatthew EZEQUIEL BRUCEER DO [address] [address] CPT-4: 57041 03/01/2021 ([id number]) OFFICE/OUTPATIENT VISIT EST Diagnosis: Sebaceous cyst of right axilla[ICD10: L72.3] Latasha VANESSA [address] [address] CPT- 4: 32951 02/08/2021 ([id number]) OFFICE/OUTPATIENT VISIT EST Diagnosis: Contact dermatitis[ICD10: L25.9] Jayna MORILLOLINE Daniel VANESSA DO [address] [address] CPT-4: 91471 01/19/2021 ([id number]) OFFICE/OUTPATIENT VISIT EST Diagnosis: Upper respiratory infection[ICD10: J06.9] Diagnosis: COPD exacerbation[ICD10: J44.1] Latasha VANESSA [address] [address] CPT-4: 21530 11/29/2020 ([id number]) OFFICE/OUTPATIENT VISIT EST Diagnosis: Sinusitis[ICD10: J32.9] Diagnosis: Acute pansinusitis, recurrence not specified[ICD10: J01.40] Latasha VANESSA DO [address] [address] CPT-4: 97749 09/29/2020 OFFICE/OUTPATIENT VISIT EST Diagnosis: Other seasonal allergic rhinitis[ICD10: J30.2] Diagnosis: Chronic bronchitis[ICD10: J42] Diagnosis: 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 [address] [place] [address] CPT-4: 35826 2020 ([id number]) OFFICE/OUTPATIENT VISIT EST Diagnosis: Pyelonephritis[ICD10: N12] Diagnosis: Anemia[ICD10: D64.9] Diagnosis: Blood in stool[ICD10: K92.1] Jayna VANESSA [address] [address] CPT-4: 39308 07/13/2020 ([id number]) OFFICE/OUTPATIENT VISIT EST Diagnosis: Acute gastroenteritis[ICD10: K52.9] Jayna MORILLOAlecia VANESSA [address] [address] CPT-4: 50405 07/05/2020 ([id number]) OFFICE/OUTPATIENT VISIT EST Diagnosis: Essential hypertension[ICD10: I10] Diagnosis: Hypothyroidism, unspecified[ICD10: E03.9] Diagnosis: Metabolic syndrome[ICD10: E88.81] Diagnosis: Mixed hyperlipidemia[ICD10: E78.2] Diagnosis: 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] Jayna VANESSA [address] [address] CPT- 4: 70727 06/22/2020 ([id number]) OFFICE/OUTPATIENT VISIT EST Diagnosis: Urinary tract infection[ICD10: N39.0] Jayna CLARKCOLETTE VANESSA [address] [address] CPT-4: 78045 05/17/2020 ([id number]) OFFICE/OUTPATIENT VISIT EST Diagnosis: Right pulmonary embolus[ICD10: I26.99] Jayna StonerBUZZ VANESSA [facility] [address] [place] [address] CPT-4: 45600 03/14/2020 ([id number]) OFFICE/OUTPATIENT VISIT EST Diagnosis: COVID-19[ICD10: U07.1] Diagnosis: Pneumonia[ICD10: J18.9] Diagnosis: Dyspnea[ICD10: R06.00] Jayna Oremarialuisa GUTIERREZ TracyPaige BIANCA Villalba DO [facility] [address] [place] [address] CPT-4: 79769 03/07/2020 ([id number]) OFFICE/OUTPATIENT VISIT EST Diagnosis: Upper respiratory infection[ICD10: J06.9] Genesis Fernández Wanda RODRIGUE VANESSA [address] [address] CPT-4: 84523 02/11/2020 ([id number]) OFFICE/OUTPATIENT VISIT EST Diagnosis: Dermatitis[ICD10: L30.9] Diagnosis: Urticaria[ICD10: L50.9] Jayna Vanessa [facility] [address] [place] [address] CPT-4: 54582 09/29/2019 ([id number]) OFFICE/OUTPATIENT VISIT EST Diagnosis: Bone spur of right foot[ICD10: M77.51] Diagnosis: Recurrent UTI[ICD10: N39.0] Diagnosis: MRSA (methicillin resistant staph aureus) culture positive[ICD10: Z22.322] Jayna Vanessa [facility] [address] [place] [address] CPT-4: 31531 09/14/2019 ([id number]) NURSE/OUTPATIENT VISIT EST Diagnosis: Urinary tract infection[ICD10: N39.0] Jayna Jessicamarialuisa GERBER TracyPaige JESSICASHONAAPOLINAR [address] [address] CPT-4: 57952 09/11/2019 ([id number]) NURSE/OUTPATIENT VISIT EST Diagnosis: Urinary tract infection, site not specified[ICD10: N39.0] Jayna GUTIERREZ TracyPaige VANESSA DO [address] [address] CPT-4: 58684 09/08/2019 ([id number]) NURSE/OUTPATIENT VISIT EST Diagnosis: Urinary tract infection, site not specified[ICD10: N39.0] Jayna GREENBERGNDAPOLINAR DO [address] [address] CPT-4: 37101 09/07/2019 ([id number]) OFFICE/OUTPATIENT VISIT EST Diagnosis: Pelvic pain in female[ICD10: R10.2] Diagnosis: Urinary frequency[ICD10: R35.0] Genesis VANESSA DO [address] [address] CPT-4: 88987 09/02/2019 ([id number]) OFFICE/OUTPATIENT VISIT EST Diagnosis: Sinusitis[ICD10: J32.9] Genesis BRUCE ER DO [address] [address] CPT-4: 88225 07/09/2019 ([id number]) OFFICE/OUTPATIENT VISIT EST Diagnosis: UTI (urinary tract infection)[ICD10: N39.0] Diagnosis: FLU VACCINE[ICD10: Z23] Genesis BRUCE ER DO [address] [address] CPT-4: 12031 04/15/2019 ([id number]) OFFICE/OUTPATIENT VISIT EST Diagnosis: Pain in right leg[ICD10: M79.604] Genesis BRUCEER DO [address] [address] CPT-4: 20491 04/07/2019 ([id number]) OFFICE/OUTPATIENT VISIT EST Diagnosis: Diverticulitis of large intestine without perforation or abscess without bleeding[ICD10: K57.32] Diagnosis: Cystitis[ICD10: N30.90] Jayna BRUCE ER DO [address] [address] CPT-4: 70027 03/25/2019 ([id number]) OFFICE/OUTPATIENT VISIT EST Diagnosis: Abdominal pain[ICD10: R10.9] Diagnosis: Cystitis[ICD10: N30.90] Jayna JIANG DO [address] [address] CPT-4: 02004 03/18/2019 ([id number]) OFFICE/OUTPATIENT VISIT EST Diagnosis: Diverticulitis of large intestine without perforation or abscess without bleeding[ICD10: K57.32] Diagnosis: Generalized abdominal pain[ICD10: R10.84] Diagnosis: Urinary tract infection, site not specified[ICD10: N39.0] Genesis VANESSA DO [address] [address] CPT-4: 56834 01/26/2019 ([id number]) OFFICE/OUTPATIENT VISIT EST Diagnosis: Mild intermittent asthma with (acute) exacerbation[ICD10: J45.21] Diagnosis: Allergic rhinitis due to pollen[ICD10: J30.1] Jayna VANESSA DO [address] [address] CPT- 4: 61379 01/08/2019 ([id number]) OFFICE/OUTPATIENT VISIT EST Diagnosis: Mild intermittent asthma with (acute) exacerbation[ICD10: J45.21] Diagnosis: URI, ACUTE[ICD10: J06.9] Diagnosis: Urinary tract infection, site not specified[ICD10: N39.0] Jayna VANESSA DO [address] [address] CPT-4: 66004 01/06/2019 ([id number]) OFFICE/OUTPATIENT VISIT EST Diagnosis: Benign paroxysmal vertigo, bilateral[ICD10: H81.13] Diagnosis: Migraine without aura, not intractable, without status migrainosus[ICD10: G43.009] Jayna VANESSA DO [address] [address] CPT-4: 59964 10/30/2018 ([id number]) OFFICE/OUTPATIENT VISIT EST Diagnosis: Acute bronchitis, unspecified[ICD10: J20.9] Diagnosis: Cough[ICD10: R05] Diagnosis: Other seasonal allergic rhinitis[ICD10: J30.2] Stacey MORILLOLINE Daniel GREENBERGNDER DO [facility] [address] [place] [address] CPT- 4: 04026 10/07/2018 ([id number]) OFFICE/OUTPATIENT VISIT EST Diagnosis: Pain in unspecified joint[ICD10: M25.50] Diagnosis: Pain in right ankle and joints of right foot[ICD10: M25.571] Diagnosis: Other specified disorders of bone density and structure, unspecified site[ICD10: M85.80] Jayna GUTIERREZ Daniel GREENBERGNDER DO [facility] [address] [place] [address] CPT-4: 86556 06/23/2018 ([id number]) OFFICE/OUTPATIENT VISIT EST Diagnosis: Hypothyroidism, unspecified[ICD10: E03.9] Diagnosis: Mixed hyperlipidemia[ICD10: E78.2] Jayna ALVARENGA SPaige GREENBERGNDER DO [facility] [address] [place] [address] CPT-4: 89201 01/16/2018 ([id number]) OFFICE/OUTPATIENT VISIT EST Diagnosis: Cervicalgia[ICD10: M54.2] Genesis Francoisdi JAYNA Daniel GREENBERG NDER DO [facility] [address] [place] [address] CPT-4: 03893 10/16/2017 ([id number]) OFFICE/OUTPATIENT VISIT EST Diagnosis: Headache[ICD10: R51] Diagnosis: Dizziness and giddiness[ICD10: R42] Jayna KENNEY SPaige GREENBERGNDER DO [facility] [address] [place] [address] CPT-4: 08804 09/12/2017 OFFICE/OUTPATIENT VISIT EST Diagnosis: Cough[ICD10: R05] Genesis Fernández JAYNA SPaige GREENBERGNDER DO [facility] [address] [place] [address] CPT-4: 90503 08/20/2017 ([id number]) OFFICE/OUTPATIENT VISIT EST Diagnosis: COUGH[ICD10: R05] Jayna VANESSA DO [address] [address] CPT-4: 44790 08/13/19 ([id number]) OFFICE/OUTPATIENT VISIT EST Diagnosis: Acute bronchospasm[ICD10: J98.01] Jayna VANESSA [address] [address] CPT-4: 17806 07/29/2017 OFFICE/OUTPATIENT VISIT EST Diagnosis: Influenza due to identified novel influenza A virus with other respiratory manifestations[ICD10: J09.X2] Genseis VANESSA DO [address] [address] CPT-4: 50005 07/25/2017 ([id number]) OFFICE/OUTPATIENT VISIT EST Diagnosis: Pain in unspecified joint[ICD10: M25.50] Jayna VANESSA DO [address] [address] CPT- 4: 43183 06/10/2017 OFFICE/OUTPATIENT VISIT EST Diagnosis: Acute bronchitis, unspecified[ICD10: J20.9] Genesis VANESSA DO [address] [address] CPT- 4: 96224 05/28/2017 ([id number]) OFFICE/OUTPATIENT VISIT EST Diagnosis: Hypothyroidism, unspecified[ICD10: E03.9] Diagnosis: Mixed hyperlipidemia[ICD10: E78.2] Diagnosis: Gsvcb-9-suctoymofpe 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] Diagnosis: Sebaceous cyst[ICD10: L72.3] Jayna VANESSA DO [address] [address] CPT-4: 25488 11/28/2016 ([id number]) OFFICE/OUTPATIENT VISIT EST Diagnosis: Right upper quadrant pain[ICD10: R10.11] Diagnosis: Epigastric pain[ICD10: R10.13] Jayna VANESSA DO [facility] [address] [place] [address] CPT-4: 82154 06/05/2016 ([id number]) OFFICE/OUTPATIENT VISIT EST Diagnosis: FLU VACCINE[ICD10: Z23] Jayna BRUCE ER DO [address] [address] CPT-4: 30231 05/01/2016 OFFICE/OUTPATIENT VISIT EST Diagnosis: Hypothyroidism, unspecified[ICD10: E03.9] Diagnosis: Type 1 diabetes mellitus without complications[ICD10: E10.9] Diagnosis: Mixed hyperlipidemia[ICD10: E78.2] Diagnosis: Essential (primary) hypertension[ICD10: I10] Diagnosis: Mixed incontinence[ICD10: N39.46] Jayna Jessicamarialuisa IGLESIA Martha VANESSA DO [facility] [address] [place] [address] CPT-4: 90053 11/08/2015 ([id number]) OFFICE/OUTPATIENT VISIT EST Diagnosis: Hypothyroidism, unspecified[ICD10: E03.9] Diagnosis: Other fatigue[ICD10: R53.83] Jayna VANESSA DO [address] [address] CPT-4: 08407 07/19/2015 ([id number]) OFFICE/OUTPATIENT VISIT EST Diagnosis: Hypothyroidism, unspecified[ICD10: E03.9] Diagnosis: Mixed hyperlipidemia[ICD10: E78.2] Diagnosis: Metabolic syndrome[ICD10: E88.81] Diagnosis: Right lower quadrant abdominal tenderness[ICD10: R10.813] Diagnosis: FLU VACCINE[ICD10: Z23] Jayna BRUCE ER DO [facility] [address] [place] [address] CPT-4: 17159 03/28/2015 ([id number]) OFFICE/OUTPATIENT VISIT EST Diagnosis: MALAISE AND FATIGUE[ICD9: 780.79] Diagnosis: DEPRESSIVE DISORDER NEC[ICD9: 311] Diagnosis: HYPOTHYROIDISM[ICD9: 244.9] Diagnosis: PNEUMOCOCCAL VACCINE[ICD10: Z23] Jaynaparam VANESSA [address] [address] CPT-4: 09472 02/08/2015 ([id number]) OFFICE/OUTPATIENT VISIT EST Diagnosis: MALAISE AND FATIGUE[ICD9: 780.79] Diagnosis: DEPRESSIVE DISORDER NEC[ICD9: 311] Diagnosis: HYPOTHYROIDISM[ICD9: 244.9] Diagnosis: ARTHRALGIA-MULTIPLE SITES[ICD9: 719.49] Jayna VANESSA [address] [address] CPT-4: 79205 01/11/2015 ([id number]) OFFICE/OUTPATIENT VISIT EST 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] Diagnosis: - I - HYPOTHYROIDISM[ICD9: 244.9] Diagnosis: COUGH[ICD10: R05] Diagnosis: ALLERGIC RHINITIS[ICD9: 477.9] Diagnosis: Lumbar degenerative disc disease[ICD9: 722.52] Jayna MORILLOLINE TracyPaige ANDIE [address] [address] CPT- 4: 41676 11/24/2014 ([id number]) OFFICE/OUTPATIENT VISIT EST Diagnosis: Allergic reaction[ICD9: 995.3] Galina Leos JAYNA Molina Paige ANDEI [address] [address] CPT-4: 71880 11/19/2014 ([id number]) OFFICE/OUTPATIENT VISIT EST Diagnosis: ALLERGIC RHINITIS[ICD9: 477.9] Diagnosis: WHEEZING[ICD9: 786.07] Diagnosis: URINARY TRACT INFECTION[ICD9: 599.0] Diagnosis: Right flank pain[ICD9: 789.09] Conchita VILLARREALQUELINE Tracy Paige ANDIE [address] [address] CPT-4: 78724 10/27/2014 ([id number]) OFFICE/OUTPATIENT VISIT EST Diagnosis: URINARY TRACT INFECTION[ICD9: 599.0] Diagnosis: Flank pain[ICD9: 789.09] Conchita GUTIERREZ Tracy. MOOK EMMA DO [address] [address] CPT-4: 98880 09/23/2014 ([id number]) OFFICE/OUTPATIENT VISIT EST Diagnosis: HYPERTENSION[ICD9: 401.9] Diagnosis: - I - HYPOTHYROIDISM[ICD9: 244.9] Diagnosis: HYPERLIPIDEMIA NEC/NOS[ICD9: 272.4] Diagnosis: DYSMETABOLIC SYNDROME X[ICD9: 277.7] Jayna QUEZADA SPaige ORENDER DO [address] [address] CPT-4: 98781 07/28/2014 OFFICE/OUTPATIENT VISIT EST Diagnosis: HYPERTENSION[ICD9: 401.9] Diagnosis: GROSS HEMATURIA[ICD9: 599.71] Jayna GUTIERREZ SPaige ORENDER DO [address] [address] CPT-4: 56337 03/30/2014 ([id number]) OFFICE/OUTPATIENT VISIT EST 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] Diagnosis: - I - HYPOTHYROIDISM[ICD9: 244.9] Diagnosis: HYPERLIPIDEMIA NEC/NOS[ICD9: 272.4] Diagnosis: HYPERTENSION[ICD9: 401.9] Jayna GUTIERREZ SPaige ORE NDEDeejay DO [address] [address] CPT-4: 09639 11/24/2013 ([id number]) OFFICE/OUTPATIENT VISIT EST 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] Diagnosis: HYPERLIPIDEMIA NEC/NOS[ICD9: 272.4] Diagnosis: HYPOTHYROIDISM[ICD9: 244.9] Jayna GUTIERREZ SPaige O RENDER DO [address] [address] CPT-4: 45268 08/25/2013 OFFICE/OUTPATIENT VISIT EST Diagnosis: DEPRESSIVE DISORDER NEC[ICD9: 311] Jayna Sanchez ORENDER DO [address] [address] CPT-4: 73419 06/29/2013 OFFICE/OUTPATIENT VISIT EST Diagnosis: DEPRESSIVE DISORDER NEC[ICD9: 311] Jayna VILLARREALOTTO VANESSA [address] [address] CPT-4: 32316 05/26/2013 ([id number]) OFFICE/OUTPATIENT VISIT EST Diagnosis: BRONCHITIS, ACUTE[ICD9: 466.0] Diagnosis: HYPOTHYROIDISM[ICD9: 244.9] Diagnosis: HYPERLIPIDEMIA NEC/NOS[ICD9: 272.4] Diagnosis: Shoulder pain[ICD9: 719.41] Jayna MORILLOLINE Daniel PUCKETT DO [address] [address] CPT-4: 61968 05/06/2013 ([id number]) OFFICE/OUTPATIENT VISIT EST Diagnosis: BRONCHITIS, ACUTE[ICD9: 466.0] Diagnosis: SINUSITIS, ACUTE[ICD9: 461.9] Jayna MORILLOLINE Daniel VANESSA [address] [address] CPT-4: 70679 04/23/2013 ([id number]) OFFICE/OUTPATIENT VISIT EST Diagnosis: DYSPNEA[ICD9: 786.09] Diagnosis: EDEMA[ICD9: 782.3] Diagnosis: OARKX-6-QCIEGZWRUXM DEFICIENCY[ICD9: 273.4] Diagnosis: COUGH[ICD9: 786.2] Jayna MORILLOLINE Daniel VANESSA [address] [address] CPT-4: 01204 03/31/20 OFFICE/OUTPATIENT VISIT EST Diagnosis: Chest pain[ICD9: 786.50] Diagnosis: ANXIETY STATE NOS[ICD9: 300.00] Conchita Liborio JAYNA VANESSA [address] [address] CPT-4: 49851 03/05/2013 ([id number]) OFFICE/OUTPATIENT VISIT EST Diagnosis: HYPERLIPIDEMIA NEC/NOS[ICD9: 272.4] Diagnosis: HYPOTHYROIDISM[ICD9: 244.9] Diagnosis: Gvvhy-3-ydjberricvu deficiency[ICD9: 273.4] Diagnosis: ALLERGIC RHINITIS[ICD9: 477.9] Jayna MORILLOLINE Tracy VANESSA [address] [address] CPT-4: 18792 02/04/2013 ([id number]) OFFICE/OUTPATIENT VISIT EST Diagnosis: COUGH[ICD9: 786.2] Diagnosis: ALLERGIC RHINITIS[ICD9: 477.9] Jayna VANESSA DO [address] [address] CPT-4: 91132 11/27/2012 ([id number]) OFFICE/OUTPATIENT VISIT EST Diagnosis: COUGH[ICD9: 786.2] Diagnosis: DYSPNEA[ICD9: 786.09] Jayna VANESSA DO [address] [address] CPT-4: 44214 11/11/2012 ([id number]) OFFICE/OUTPATIENT VISIT EST Diagnosis: ABDOMINAL PAIN[ICD9: 789.00] Diagnosis: DIARRHEA[ICD9: 787.91] Diagnosis: COUGH[ICD9: 786.2] Jayna VANESSA [address] [address] CPT-4: 67315 10/21/19 OFFICE/OUTPATIENT VISIT EST Diagnosis: COUGH[ICD9: 786.2] Diagnosis: SINUSITIS, ACUTE[ICD9: 461.9] Diagnosis: PHARYNGITIS, ACUTE[ICD9: 462] Jayna VANESSA [address] [address] CPT-4: 09033 09/03/2012 OFFICE/OUTPATIENT VISIT EST Diagnosis: ABDOMINAL PAIN[ICD9: 789.00] Diagnosis: Diarrhea[ICD9: 787.91] Jayna Villalba [address] [address] CPT-4: 55034 07/23/2012 ([id number]) OFFICE/OUTPATIENT VISIT EST Diagnosis: DM 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 TYPE II, UNCONTROLLED[ICD9: 250.02] Diagnosis: HYPERLIPIDEMIA NEC/NOS[ICD9: 272.4] Diagnosis: GERD[ICD9: 530.81] Jayna MORILLOLINE TracyPaige JESSICANDER DO [address] [address] CPT-4: 30753 05/20/20 12 OFFICE/OUTPATIENT VISIT EST Diagnosis: DERMATITIS NOS[ICD9: 692.9] Galinalexie GUTIERREZ TracyPaige Helga ITALO DO [address] [address] CPT-4: 66540 04/04/2012 ([id number]) OFFICE/OUTPATIENT VISIT EST Diagnosis: HYPERLIPIDEMIA NEC/NOS[ICD9: 272.4] Diagnosis: HYPOTHYROIDISM[ICD9: 244.9] Diagnosis: DYSMETABOLIC SYNDROME X[ICD9: 277.7] Jayna Jessicamarialuisa QUEZDAA TracyPaige JESSICANDER DO [address] [address] CPT-4: 25979 01/02/2012 OFFICE/OUTPATIENT VISIT EST Diagnosis: COUGH[ICD9: 786.2] Diagnosis: SINUSITIS, ACUTE[ICD9: 461.9] Lizzie VILLARREALQUELINE TracyPaige JESSICANDER DO [address] [address] CPT-4: 71969 09/04/2011 OFFICE/OUTPATIENT VISIT EST Diagnosis: Diverticulitis[ICD9: 562.11] Diagnosis: THROMBOPHLEBITIS[ICD9: 451.9] Jayna Jessicashonaapolinar JAYNA TracyPaige JESSICANDER DO [address] [address] CPT-4: 56016 08/14/2011 OFFICE/OUTPATIENT VISIT EST Diagnosis: COUGH[ICD9: 786.2] Jayna Jessicashonaapolinar JAYNA TracyPaige JESSICANDER DO [address] [address] CPT-4: 03071 07/25/19 OFFICE/OUTPATIENT VISIT EST Diagnosis: HYPOTHYROIDISM[ICD9: 244.9] Diagnosis: HYPERLIPIDEMIA NEC/NOS[ICD9: 272.4] Diagnosis: Total knee replacement status[ICD9: V43.65] Jayna Jessicamarialuisa GUTIERREZ TracyPaige JESSICANDER DO [address] [address] CPT- 4: 12282 07/12/2011 OFFICE/OUTPATIENT VISIT EST Diagnosis: BRONCHITIS, ACUTE[ICD9: 466.0] Diagnosis: COUGH[ICD9: 786.2] Jayna MORILLOLINE TracyPaige ORENDER DO [address] [phone] CPT-4: 26121 05/09/20 11 OFFICE/OUTPATIENT VISIT EST Diagnosis: BRONCHITIS, ACUTE[ICD9: 466.0] Diagnosis: ASTHMA NOS[ICD9: 493.90] Diagnosis: Pleurisy[ICD9: 511.0] Jayna Greenbergshonaapolinar JAYNA [facility]Paige [facility] [address] [place] [phone] CPT-4: 79901 05/02/2011 OFFICE/OUTPATIENT VISIT EST Diagnosis: COUGH[ICD9: 786.2] Jayna Vanessa JAYNA TracyPaige ORENDER DO [facility] [address] [place] [phone] CPT-4: 64558 04/25/20 11 OFFICE/OUTPATIENT VISIT EST Diagnosis: COUGH[ICD9: 786.2] Diagnosis: SINUSITIS, ACUTE[ICD9: 461.9] Jayna Jessicamarialuisa GUTIERREZ TracyPaige ORENDER DO [facility] [address] [place] [phone] CPT-4: 01128 04/04/2011 OFFICE/OUTPATIENT VISIT EST Diagnosis: HYPOTHYROIDISM[ICD9: 244.9] Diagnosis: Knee osteoarthritis[ICD9: 715.96] Jayna Thomas TracyPaige ORENDER DO [facility] [address] [place] [phone] CPT-4: 26847 03/01/2011 OFFICE/OUTPATIENT VISIT EST Jayna GUTIERREZ TracyPaige ORE NDER DO [facility] [address] [place] [phone] CPT-4: 51843 01/04/2011 ([id number]) OFFICE/OUTPATIENT VISIT EST Jayna MARIA [facility]Paige [facility] [address] [place] [phone] CPT-4: 97038 12/07/2010 ([id number]) OFFICE/OUTPATIENT VISIT EST Jayna PISANO UELINE [facility] [address] [place] [phone] CPT-4: 59140 10/09/2010 ([id number]) OFFICE/OUTPATIENT VISIT EST Jayna [facility]IA [facility] [address] [place] [phone] CPT-4: 57251 08/07/2010 ([id number]) OFFICE/OUTPATIENT VISIT, EST Jayna COPELANDLINE [facility] [address] [place] [phone] CPT-4: 93545 06/06/2010 ([id number]) OFFICE/OUTPATIENT VISIT, EST Jayna [facility] [address] [place] [phone] CPT-4: 86704 03/20/2010 ([id number]) OFFICE/OUTPATIENT VISIT, EST Jayna COPELANDLINE S[facility] [address] [place] [address] [id number] CPT-4: 57646 01/30/2010 ([id number]) OFFICE/OUTPATIENT VISIT, EST Jayna [facility] [address] [place] [phone] CPT-4: 23470 01/09/2010 ([id number]) OFFICE/OUTPATIENT VISIT, EST Jayna [facility] [address] [place] [phone] CPT-4: 27063 10/26/2009 ([id number]) OFFICE/OUTPATIENT VISIT, EST Lizzie Kelly [facility] [address] [place] [phone] CPT-4: 69132 10/18/19 10 ([id number]) OFFICE/OUTPATIENT VISIT, EST Jaynaparam [facility] [address] [place] [phone] CPT-4: 04253 10/04/2009 ([id number]) OFFICE/OUTPATIENT VISIT, EST Jayna VANESSA DO [facility] [address] [place] [address] CPT-4: 62165 09/21/2009 Plan of Care Planned Activity Notes Codes Status Date Visit Diagnosis Plan: Acute cystitis Discussion: Start Macrobid 100mg bid x7 days. Continue to drink plenty of water. Urine sent for culture-- will notify of results. Recommend soft, bland diet for a few days. ICD-9 : 595.0 ICD-10 : N30.00 09/05/2022 Appointment: Marlene Staples WPtel: [phone] [phone] ACUTE ILLNESS 09/05/2022 Patient Education: Patient [...] 08/30/2022 Appointment: Marlene Staples WPtel: [phone] [facility] US FOLLOW UP 08/30/2022 Patient Education: Patient Medication Summary Completed 08/30/2022 Visit Diagnosis Plan: Discussion: Stable Labs disc ussed 08/07/2022 Visit Diagnosis Plan: Essential (primary) hypertension Discussion: Stable ICD-9 : 401.9 ICD-10 : I10 08/07/2022 Visit Diagnosis Plan: Discussion: Update lipids 08/07/2022 Visit Diagnosis Plan: Stress at home Discussion: With 's health ICD-9 : V61.9 ICD-10 : F43.9 08/07/2022 Appointment: [facility]el[facility] [address] [phone] [facility] FOLLOW UP 08/07/2022 Visit Diagnosis Plan: [...] 06/29/2022 Appointment: Marlene Staples WPtel: [phone] [phone] ACUTE ILLNESS 06/29/2022 Patient Education: ciprofloxacin HCl- OptimizeRX Coupon [id number] Completed 06/29/2022 Visit Diagnosis Plan: Depression Discussion: Increase Wellbutrin XL to 300mg po qAM Fwup 2 mos ICD-9 : 311 ICD-10 : F32.A 05/28/2022 Visit Diagnosis Plan: Hypothyroidism Discussion: Labs discussed Decrease levothyroxine to 150mcg 6 days a week and repeat thyroid lab in 2mos ICD-9 : 244.9 ICD-10 : E03.9 05/28/2022 Appointment: Jayna Vanessa WPtel: [address] [place], [place] [phone] US FOLLOW UP 05/28/2022 Visit Diagnosis Plan: [...] R73.9 05/10/2022 Appointment: Jayna Vanessa WPtel: [phone] [phone] US FOLLOW UP 05/10/2022 Visit Diagnosis Plan: Migraine, intractable Discussion : Toradol 30mg IM x1 given in clinic. Start Rizatriptan-- discussed on how to use and may repeat x1 dose 2 hours later. Restart propranolol for migraine prevention. Notify clinic if migraine not improving. ICD-9 : 346.91 ICD-10 : G43.919 04/18/2022 Appointment: Marlene Staples WPtel: [address] [phone] US ACUTE ILLNESS 04/18/2022 Patient Education: propranolol- OptimizeRX Coupon [id number] Completed 04/18/2022 Appointment: Jayna Vanessa WPtel: [address] [place] [address] US INJECTION 04/05/2022 Appointment: Jayna Vanessa WPtel: [address] [place], [place] [phone] US CANCELED 03/21/2022 Visit Diagnosis Plan: Acute sinusitis Discussion: Pred nisone Notify if worsening persists ICD-9 : 461.9 ICD-10 : J01.90 02/15/2022 Visit Diagnosis Plan: Bilateral temporomandibular join t disorder Discussion: Ice and prednisone If worsening will check ESR ICD-9 : 524.60 ICD-10 : M26.603 02/15/2022 Visit Diagnosis Plan: Allergic rhinitis Discussion: Co ntineric garciaejoe xyzal ICD-9 : 477.9 ICD-10 : J30.9 02/15/2022 Appointment: Jayna Vanessa WPtel: [address] [place] [address] US ACUTE ILLNESS 02/15/2022 Patient Education: prednisone- OptimizeRX Coupon [id number] https://www.Bloompop/samplemd/resources/getResource/61/68s21mv7-t784-2a64-pl Completed 02/15/2022 Visit Diagnosis Plan: Hypothyroidism, unspecified Disc ussion: Stable ICD-9 : 244.9 ICD-10 : E03.9 02/06/2022 Visit Diagnosis Plan: Encounter for [facility] adult medical examination without abnormal [...] : J44.9 02/06/2022 Appointment: Jayna [facility]essatel: [phone] [phone] Annual Well Visit 02/06/2022 Care Plan: Annual depression screening, 15 minutes 02/06/2022 Visit Diagnosis Plan: 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 Patient declines- will get stat CT of the head, cbc, cmp, and ESR and fwup with results [facility] sample given ICD-9 : 346.03 ICD-10 : G43.111 02/01/2022 Appointment: Latasha Anand WPtel: [phone] [facility] ACUTE ILLNESS 02/01/2022 Patient Education: Patient Medication [...] : R19.7 11/29/2021 Appointment: Jayna Vanessal: [address] [phone] FOLLOW UP 11/29/2021 Visit Diagnosis Plan: Diarrhea Discussion: C Diff nega tive Treat with diflucan and Restora-RX Fwup 1 week ICD-9 : 787.91 ICD-10 : R19.7 11/22/2021 Visit Diagnosis Plan: Post-viral cough syndrome Discus joaquín: Change albuterol to Breztri 2p BID Add singulair 10mg po q HS ICD-9 : 786.2 ICD-10 : R05.8 11/22/2021 Appointment: Jayna Vanessa WPtel: [phone] [phone] ACUTE ILLNESS 11/22/2021 Patient Education: Singulair- OptimizeRX Coupon [id number] https://www.Bloompop/samplemd/resources/getResource/61/2n78plu4-0mxp-8905-7y Completed 11/22/2021 Visit Diagnosis Plan: Diarrhea of presumed infectious origin Discussion: Will check for c-diff due to recent antibiotics and foul smelling diarrhea ICD-9 : 009.3 ICD-10 : R19.7 11/21/2021 Visit Diagnosis Plan: History of recent pneumonia Disc ussion: Check cbc, cmp, ESR, and cxr now ICD-9 : V12.61 ICD-10 : Z87.01 11/21/2021 Appointment: Latasha Anand WPtel: [phone] [phone] ACUTE ILLNESS 11/21/2021 Patient Education: Patient Medication Summary Completed 11/21/2021 Visit Diagnosis Plan: Pneumonia Discussion: Finish all abx and continue albuterol Fwup next week ICD-9 : 486 ICD-10 : J18.9 11/09/2021 Visit Diagnosis Plan: Serous otitis media Discussion: Kenalog 40mg with Dexamethasone 2mg IM now ICD-9 : 381.4 ICD-10 : H65.90 11/09/2021 Appointment: Jayna Vanessa WPtel: [address] [place], [place] [phone] Hospital Follow Up 11/09/2021 Visit Diagnosis Plan: Pneumonia Discussion: Admit to h ospital ICD-9 : 486 ICD-10 : J18.9 10/31/2021 Appointment: Jayna Vanessa WPtel: [address] [place], [place] [phone] FOLLOW UP 10/31/2021 Visit Diagnosis Plan: Nausea [...] e prn 10/30/2021 Appointment: Jayna Vanessa WPtel: [address] [place], [place] [phone] ACUTE ILLNESS 10/30/2021 Visit Diagnosis Plan: Cervicalgia Discussion: Had x-ra ys done Kenalog 40mg IM now Baclofen prn Mobic for 1 week Topical muscle rube Moist heat and stretches shown Has PT sessions scheduled next week so will add in therapy for neck ICD-9 : 723.1 ICD-10 : M54.2 09/05/2021 Appointment: Jayna Vanessa WPtel: [address] [place], [place] [phone] ACUTE ILLNESS 09/05/2021 Visit Diagnosis Plan: Arthritis [...] 08/24/2021 Appointment: Latasha Anand WPtel: [phone] [phone] US ACUTE ILLNESS 08/24/2021 Patient Education: Patient Medication Summary Completed 08/24/2021 Patient Education: prednisone- OptimizeRX Coupon [id number] Completed 08/24/2021 Visit Plan: Supportive care. Rest, [...] 07/04/2021 Appointment: Latasha Anand WPtel: [phone] [phone] US ACUTE ILLNESS 07/04/2021 Patient Education: Patient Medication Summary Completed 07/04/2021 Patient Education: Patient Medication Summary Completed 07/04/2021 Appointment: Latasha Anand WPtel: [phone] [phone] US NO SHOW 07/03/2021 Appointment: Latasha Anand WPtel: [phone] [phone] US patients issue resolved so moved to 's schedule for his hospital fw (km) CANCELED 03/29/2021 Appointment: Jayna Vanessa WPtel: [phone] [phone] US INJECTION 03/29/2021 Visit Diagnosis Plan: Vasovagal episode Discussion: Mo nitored in office. Stable, feeling better- sent to [facility] for 1L NS IV, cbc, and cmp. ICD-9 : 780.2 ICD-10 : R55 03/01/2021 Patient Education: Patient Medication Summary Completed 03/01/2021 Visit Diagnosis Plan: Sebaceous cyst of right axilla D iscussion: Pustule/cyst drained- see note. F/U for concerns. ICD-9 : 706.2 ICD-10 : L72.3 02/08/2021 Appointment: Latasha Anand WPtel: [phone] [phone] ACUTE ILLNESS 02/08/2021 Patient Education: Patient Medication Summary Completed 02/08/2021 Visit Diagnosis Plan: Contact dermatitis Discussion: T opical TAC and prednisone Notify if persists or worsens ICD-9 : 692.9 ICD-10 : L25.9 01/19/2021 Appointment: Jayna Vanessa WPtel: [phone] [phone] ACUTE ILLNESS 01/19/2021 Patient Education: prednisone- OptimizeRX Coupon [id number] Completed 01/19/2021 Patient Education: triamcinolone acetonide- OptimizeRX Coupon [id number] Completed 01/19/2021 Visit Diagnosis Plan: Hypothyroidism, unspecified Disc ussion: Increase levothyroxine to 150mcg po daily and recheck TSH and free T4 in 2mos ICD-9 : 244.9 ICD-10 : E03.9 01/03/2021 Visit Diagnosis Plan: Essential (primary) hypertension Discussion: Stable ICD-9 : 401.9 ICD-10 : I10 01/03/2021 Visit Diagnosis Plan: Encounter for [facility] adult medical examination without abnormal findings Discussion: Mediterranean diet Combinati on of cardio and weight bearing exercise Had Lifestyle Air vaccines Lab discussed ICD-9 : V70.9 ICD-10 : Z00.00 01/03/2021 Visit Diagnosis Plan: Chronic obstructive pulmonary di sease, unspecified Discussion: Following with pulmonology ICD-9 : 496 ICD-10 : J44.9 01/03/2021 Appointment: Jayna Vanessa WPtel: [phone] [phone] Annual Well Visit 01/03/2021 Patient Education: levothyroxine- OptimizeRX Coupon [id number] https://www.Bloompop/samplemd/resources/getResource/61/6i527bn3-2zl4-6981-j6 Completed 01/03/2021 Visit Diagnosis Plan: COPD exacerbation Discussion: Sa ivon of cristoi given. Prednisone 40 mg x 5 days for exacerbation- increased cough, shortness of breath, and phlegm. Promethazine DM cough syrup sent d/t frequent hacking cough that interrupts sleep. F/U for no improvement or any concerns. ICD-9 : 491.21 ICD-10 : J44.1 11/29/2020 Appointment: Latasha Anand WPtel: [phone] [phone] ACUTE ILLNESS 11/29/2020 Patient Education: Patient Medication Summary Completed 11/29/2020 Patient Education: prednisone- OptimizeRX Coupon [id number] Completed 11/29/2020 Patient Education: promethazine-DM- OptimizeRX Coupon [id number] Completed 11/29/2020 Visit Diagnosis Plan: Sinusitis Discussion: Will start doxycycline (pcn allergy). Sinus rinses. Tylenol/nsaids for headache/pain. Return to clinicif not improving/concerns. ICD-9 : 473.9 ICD-10 : J32.9 09/29/2020 Appointment: Latasha Anand WPtel: [phone] [phone] ACUTE ILLNESS 09/29/2020 Patient Education: Patient Medication Summary Completed 09/29/2020 Patient Education: doxycycline hyclate- OptimizeRX Coupon [id number] Completed 09/29/2020 Visit Diagnosis Plan: Other [...] 09/19/2020 Appointment: Latasha Anand WPtel: [phone] [phone] ACUTE ILLNESS 09/19/2020 Patient Education: Patient Medication Summary Completed 09/19/2020 Patient Education: ProAir HFA- OptimizeRX Coupon [id number] Completed 09/19/2020 Visit Diagnosis Plan: Right-sided tinnitus [...] H93.11 08/10/2020 Appointment: Jayna Vanessa WPtel: [phone] [phone] FOLLOW UP 08/10/2020 Patient Education: neomycin-polymyxin B-dexameth- Opti mizeRX Coupon [id number] https://www.[employer].Digital Orchid/samplemd/resources/getResource/61/zw146x04-g24z-7t50-db Completed 08/10/2020 Visit Diagnosis Plan: Dysfunction of right eustachian tube Discussion: Alma.md video visit done Increase zyrtec to BID Increase flonase to BID Add prednisone To office at end of week to assess otoscope exam if persists ICD-9 : 381.81 ICD-10 : H69.81 08/01/2020 Appointment: Jayna Vanessa WPtel: [phone] [phone] TELEMEDICINE 08/01/2020 Patient Education: prednisone- OptimizeRX Coupon [id number] https://www.Bloompop/samplemd/resources/getResource/61/fx3h27a2-6862-8r3r-23 Completed 08/01/2020 Visit Diagnosis Plan: Pyelonephritis Discussion: Hilary daniel all abx Push fluids Check lab and repeat UA in 5 days--CBC, CMP, ESR ICD-9 : 590.80 ICD-10 : N12 07/13/2020 Appointment: Jayna Vanessa WPtel: [facility] [address] Hospital Follow Up 07/13/2020 Visit Diagnosis Plan: Acute gastroenteritis Discussion : Telephone visit completed Clear liquid diet next 24-48hrs Flagyl to cover for colitis/diverticulitis Zofran prn Notify or to ER if worsening ICD-9 : 558.9 ICD-10 : K52.9 07/05/2020 Appointment: Jayna Vanessa WPtel: [phone] TELEMEDICINE 07/05/2020 Patient Education: ondansetron HCl- OptimizeRX Coupon [id number] https://www.[employer].Digital Orchid/samplemd/resources/getResource/61/m5u04ef0-1l6x-605p-4d Completed 07/05/2020 Visit Diagnosis Plan: Metabolic syndrome Discussion: U pdate CMP, HBa1c ICD-9 : 277.7 ICD-10 : E88.81 06/22/2020 Visit Diagnosis Plan: Bgiyc-3-uhpqqlroina deficiency D iscussion: Following with pulmonology ICD-9 [...] : I10 06/22/2020 Appointment: Jayna Vanessa WPtel: [address] [place], [place] [phone] FOLLOW UP 06/22/2020 Visit Diagnosis Plan: Urinary tract infection Discussi on: Macrobid Diflucan Push water Notify if worsens ICD-9 : 599.0 ICD-10 : N39.0 05/17/2020 Appointment: Jayna Vanessa WPtel: [address] [place], [place] [phone] ACUTE ILLNESS 05/17/2020 Patient Education: fluconazole- OptimizeRX Coupon [id number] [id number] https://www.Bloompop/samplemd/resources/getResource/61/0w6ql4sa-y9a8-9l9s-7b Completed 05/17/2020 Visit Diagnosis Plan: Right pulmonary embolus Discussi on: Continue eliquis at 5mg po BID Has appointments pending with pulmonology and hematology Fwup after visits with both of these specialists ICD-9 : 415.19 ICD-10 : I26.99 03/14/2020 Appointment: Jayna Vanessa WPtel: [address] [place], [place] [phone] LM 03/14/20 on cell -- home phone had busy signal Hospital Follow Up 03/14/2020 Appointment: Jayna Vanessa WPtel: [address] [place], [place] [phone] I schedule patient by mistake ddo Scheduled [...] R06.00 03/07/2020 Appointment: Jayna Vanessa WPtel: [phone] [phone] ACUTE ILLNESS 03/07/2020 Care Plan: CT THORAX W/DYE LOINC : 68693 -6 Pending 03/07/2020 Appointment: Jayna Vanessa WPtel: [phone] [phone] NO SHOW - FORGIVEN 03/02/2020 Visit Diagnosis Plan: Upper respiratory infection Disc ussion: patient's covid test was neg from several weeks ago. proair refilled to take as needed. medrol pack prescribed to cover for allergies since her symptoms began after being in [facility]. however, instructed patient that she needs to be checked again for coronavirus due to severity of her symptoms. patient lives near [place] so informed her to go to [facility] in for testing. call ofice with new or worsening symptoms, otherwise push fluids. ICD-9 : 465.9 ICD-10 : J06.9 02/11/2020 Appointment: Genesis Fernández [address] TELEMEDICINE 02/11/2020 Patient Education: ProAir HFA- OptimizeRX Coupon [id number] Completed 02/11/2020 Patient Education: Medrol (Isaiah)- OptimizeRX Coupon [id number] Completed 02/11/2020 Visit Diagnosis Plan: Hypothyroidism, unspecified [...] 12/21/2019 Visit Diagnosis Plan: Encounter for [facility] adult medical examination without abnormal findings Discussion: Mediterranean diet Combinati on of cardio and weight bearing exercise Lab discussed Last colonoscopy 3 years ago ICD-9 : V70.9 ICD-10 : Z00.00 12/21/2019 Appointment: Jayna Vanessatel: [address] [phone] Annual Well Visit 12/21/2019 Care Plan: Referral Order SNOMED-CT : [id number] Pending 12/21/2019 Visit Diagnosis Plan: Dermatitis Discussion: Doxy.me v ideo visit done Cover with Prednisone taper Use Zyrtec 10mg po q AM BID ICD-9 : 692.9 ICD-10 : L30.9 09/29/2019 Appointment: Jayna Vanessa WPtel: [address] [place], [place] [phone] TELEMEDICINE 09/29/2019 Patient Education: prednisone- OptimizeRX Coupon [id number] https://www.Bloompop/samplemd/resources/getResource/61/17p35f55-0i62-5s08-9o Completed 09/29/2019 Visit Diagnosis Plan: Bone spur [...] : N39.0 09/14/2019 Appointment: Jayna Vanessa WPtel: [address] [place], [place] [phone] US TELEMEDICINE 09/14/2019 Appointment: Jayna Vanessa WPtel: [address] [place], [place] [phone] US LAB 09/11/2019 Appointment: Jayna Vanessa WPtel: [phone] [phone] 09/09/2019 1210--per Ally patient was to only have 1 injection, reculture urine on 09/11/19 (km) CANCELED 09/09/2019 Appointment: Jayna Vanessa WPtel: [address] [phone] US INJECTION 09/08/2019 Appointment: Jayna Vanessa WPtel: [address] [phone] US INJECTION 09/07/2019 Visit Diagnosis Plan: Urinary [...] ICD-10 : R35.0 09/02/2019 Appointment: Genesis Fernández [address] [place] [address] ACUTE ILLNESS 09/02/2019 Visit Diagnosis Plan: Sinusitis Discussion: instructed to start flonase daily and zyrtec daily. if no improvement next week, call clinic and may need further directions. instructed to use saline eye drops as needed to eyes to assist with dryness. ICD-9 : 473.9 ICD-10 : J32.9 07/09/2019 Appointment: Genesis Fernández [address] [place] [address] ACUTE ILLNESS 07/09/2019 Visit Diagnosis Plan: UTI (urinary tract infection) Di scussion: urine culture sent off. will start on macrobid due to symptoms. instructed to push fluids and chemo tomorrow with worsening symptoms. ICD-9 : 599.0 ICD-10 : N39.0 04/15/2019 Appointment: Jayna Vanessa WPtel: [phone] [phone] US INJECTION 04/15/2019 Appointment: Genesis Fernández [address] [place] [address] ACUTE ILLNESS 04/15/2019 Visit Diagnosis Plan: Pain in right leg Discussion: ke nalog/dexa given in office. continue with flexeril prn. PT was ordered for patient due to chronic issues. call office with worsening symptoms and may need imaging. ICD-9 : 729.5 ICD-10 : M79.604 04/07/2019 Appointment: Jolene Genesis Frankel [address] [place], [place] [address]a [address] ACUTE ILLNESS 04/07/2019 Visit Diagnosis Plan: Diverticulitis of large intestine without perforation or abscess without bleeding Discussion: Patient will call when she g ets home and verify which antibiotics she has left--needs at least another week on flagyl and thinks she only took 1 week on that ICD-9 : 562.11 ICD-10 : K57.32 03/25/2019 Appointment: Jayna Vanessa WPtel: [phone] [phone] FOLLOW UP 03/25/2019 Visit Diagnosis Plan: Cystitis Discussion: Bactrim and culture urine ICD-9 : 595.9 ICD-10 : N30.90 03/18/2019 Visit Diagnosis Plan: Abdominal pain Discussion: Cover with flagyl for colitis Taylor diet To ER this weekend if worsening Fwup 1 week ICD-9 : 789.00 ICD-10 : R10.9 03/18/2019 Appointment: Jayna Vanessa WPtel: [phone] [phone] ACUTE ILLNESS 03/18/2019 Visit Diagnosis Plan: Urinary [...] ICD-10 : R10.84 01/26/2019 Appointment: Genesis Fernández [address] [place], [place] [phone] ACUTE ILLNESS 01/26/2019 Appointment: Jayna Vnaessa WPtel: [address] [place], [place] [phone] CANCELED 01/12/2019 Visit Diagnosis Plan: Mild intermittent asthma with (a cute) exacerbation Discussion: Kenalog 40mg IM now Prednisone stating tomorrow Start Doxycycline tonight Continue SVNs with duoneb q4hrs To ER this if worsening Call Saturday on how doing ICD-9 : 466.0 ICD-10 : J45.21 01/08/2019 Appointment: Jayna Vanessa WPtel: [address] [place], [place] [phone] FOLLOW UP 01/08/2019 Patient Education: prednisone- OptimizeRX Coupon [phone] https://www.Bloompop/[employer]/resources/getResource/61/92978454-p8mi-3907-25 Completed 01/08/2019 Visit Diagnosis Plan: Mild intermittent asthma with (a cute) exacerbation Discussion: Solumedrol 125mg IM SVN with duoneb given Continue albuterol q4hrs CXR now Recheck tomorrow ICD-9 : 466.0 ICD-10 : J45.21 01/06/2019 Appointment: Jayna Vanessa WPtel: [phone] [phone] ACUTE ILLNESS 01/06/2019 Visit Diagnosis Plan: [...] ICD-10 : N76.0 12/11/2018 Appointment: Genesis Fernández [address] [place] [address] Annual Well Visit 12/11/2018 Care Plan: RML ASSAY THYROID STIM HORMONE Pending 12/04/2018 Care Plan: RML ASSAY OF FREE THYROXINE Pe nding 12/04/2018 Care Plan: RML A1C HPLC LOINC : 45747-4 Pending 12/04/2018 Care Plan: RML LIPID PANEL LOINC : 21405 -1 Pending 12/04/2018 Care Plan: RML COMPREHEN METABOLIC PANEL LOINC : 57573-5 Pending 12/04/2018 Care Plan: QUEST CBC (INCLUDES DIFF/PLT) LOINC : 24854-3 Pending 12/04/2018 Visit Diagnosis Plan: Benign paroxysmal vertigo, bilat eral Discussion: Meclizine Vestibular Exercises To ER if worsens or develops neurological symptoms or will need CT scan if persists/worsens ICD-9 : 386.11 ICD-10 : H81.13 10/30/2018 Appointment: Jayna Vanessa WPtel: [phone] US ACUTE ILLNESS 10/30/2018 Patient Education: VESTIBULAR EXCERCISES Completed 10/30/2018 Patient Education: meclizine- OptimizeRX Coupon [id number] Completed 10/30/2018 Appointment: Jayna Vanessa WPtel: [facility]9 [phone] US canceled due to huband going [...] ICD-10 : R05 10/07/2018 Appointment: Stacey Feng [address] [place] [address] ACUTE ILLNESS 10/07/2018 Patient Education: doxycycline hyclate- OptimizeRX [facility] [id number] https://www.[employer].Digital Orchid/samplemd/resources/getResource/61/i833ngc3-v104-217d-43 Completed 10/07/2018 Care Plan: RML ASSAY OF [...] : M85.80 06/23/2018 Appointment: Jayna Vanessa WPtel: [address] [place], [place] [phone] FOLLOW UP 06/23/2018 Appointment: Jayna Vanessa WPtel: [address] [place], [place] [phone] ER Follow UP 01/27/2018 Visit Diagnosis Plan: Hypothyroidism, unspecified Disc ussion: Lab discussed Increase Levothyroxine to 175mcg daily then recheck level in 6 weeks Follow Up: 6 weeks ICD-9 : 244.9 ICD-10 : E03.9 01/16/2018 Visit Diagnosis Plan: Mixed hyperlipidemia Discussion: Defers statin meds ICD-9 : 272.4 ICD-10 : E78.2 01/16/2018 Appointment: Jayna Vanessa WPtel: [address] [place], [place] [phone] FOLLOW UP 01/16/2018 Patient Education: Patient Medication Summary Completed 01/16/2018 Patient Education: Patient Medication Summary Completed 01/15/2018 Care Plan: RML COMPREHEN METABOLIC PANEL LOINC : 09903-4 Pending 01/15/2018 Care Plan: RML ASSAY THYROID STIM HORMONE Pending 01/15/2018 Care Plan: RML ASSAY OF FREE THYROXINE Pe nding 01/15/2018 Care Plan: RML LIPID PANEL LOINC : 76822 -1 Pending 01/15/2018 Care Plan: CBC Pending 01/15/2018 Care Plan: RML A1C HPLC LOINC : 42001-5 Pending 01/15/2018 Appointment: Jayna Vanessa WPtel: [address] [place], [place] [phone] US CANCELED 12/26/2017 Appointment: Jayna Vanessa WPtel: [address] [place], [place] [phone] US CANCELED 10/28/2017 Visit Diagnosis Plan: Cervicalgia Discussion: xray ord ered of cervical spine and right shoulder. 40 mg kenalog/15 mg toradol prescribed to assist with pain. medrol dose pack prescribed to start tomorrow. instructed patient that if she d evelops worsening pain or no improvement, call or rtc. ICD-9 : 723.1 ICD-10 : M54.2 10/16/2017 Appointment: Genesis Fernández [address] [place] [address] ACUTE ILLNESS 10/16/2017 Patient Education: Patient Medication Summary Completed 10/16/2017 Care Plan: X-RAY EXAM NECK SPINE 4/5VWS cervical LOINC : 87032-5 Pending 10/16/2017 Visit Diagnosis Plan: Headache Discussion: Stat CT of head Dilated eye exam ICD-9 : 784.0 ICD-10 : R51 09/12/2017 Visit Diagnosis Plan: Dizziness and giddiness Discussi on: Check CBC,TSH, Free T4 now ICD-9 : 780.4 ICD-10 : R42 09/12/2017 Appointment: Jayna Vanessa WPtel: [address] [place], [place] [phone] ACUTE ILLNESS 09/12/2017 Patient Education: Patient Medication Summary Completed 09/12/2017 Care Plan: CT HEAD/BRAIN W/O DYE LOINC : 10627-3 Pending 09/12/2017 Visit Diagnosis Plan: Cough Discussion: discussed cxra y and sputum results with patient and how they are negative for bacteria. patient restarted on her PPI to cover possiblity of GERD causing cough. 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 rtc with any new or worsening symptoms but continue with inhaler and nebulizer treatments as needed. ICD-9 : 786.2 ICD-10 : R05 08/20/2017 Appointment: Genesis Fernández [address] [place] [address] FOLLOW UP 08/20/2017 Patient Education: Patient Medication Summary Completed 08/20/2017 Visit Diagnosis Plan: COUGH Discussion: Check stat CXR Check Sputum culture ICD-9 : 786.2 ICD-10 : R05 08/13/2017 Appointment: Jayna Vanessa WPtel: [facility]8 [phone] ACUTE ILLNESS 08/13/2017 Patient Education: Patient Medication [...] Rest, Fluids... 07/29/2017 Appointment: Jayna Vanessa WPtel: [address] [place], [place] [phone] ACUTE ILLNESS 07/29/2017 Patient Education: Patient Medication [...] ICD-10 : J09.X2 07/25/2017 Appointment: Genesis Fernández [address] [place] [address] ACUTE ILLNESS 07/25/2017 Patient Education: Patient Medication [...] : M25.50 06/10/2017 Appointment: Jayna Vanessa WPtel: [address] [place], [place] [phone] ACUTE ILLNESS 06/10/2017 Patient Education: Patient Medication Summary Completed 06/10/2017 Appointment: Jayna Vanessa WPtel: [address] [place], [place] [phone] [place] Does not need appointment CANCELED 2016 Appointment: Jayna Vanessa WPtel: [address] [place], [place] [phone] [place] CANCELED 05/30/2017 Visit Diagnosis Plan: Acute bronchitis, unspecified Di scussion: prednisone, zpack and tessalon perles prescribed to assist with symptoms. call or RTC if no improvement. humidifier at night. hydrate well and rest. discussed side effects from prednisone including increased blood sugars and instructed to monitor. ICD-9 : 490 ICD-10 : J20.9 05/28/2017 Appointment: Genesis Fernández [address] [place], [place] [id number] ACUTE ILLNESS 05/28/2017 Patient Education: Patient Medication Summary Completed 05/28/2017 Visit Diagnosis Plan: Type 2 diabetes mellitus without complications Discussion: Continue current meds accuchecks daily ICD-9 : 250.00 ICD-10 : E11.9 04/04/2017 Visit Diagnosis Plan: Encounter for [facility] adult medical examination without abnormal findings Discussion: Flu and Pneumovax given Mamm ogram ordered Lab discussed ICD-9 : V70.9 ICD-10 : Z00.00 04/04/2017 Appointment: Jayna Vanessa WPtel: [phone] [phone] Annual Well Visit 04/04/2017 Patient Education: Patient Medication Summary Completed 04/04/2017 Care Plan: MAMMOGRAM SCREENING LOINC : 2 6347-5 Pending 04/04/2017 Patient Education: Patient Medication Summary Completed 03/21/2017 Care Plan: RML COMPREHEN METABOLIC PANEL LOINC : 95565-1 Pending 03/21/2017 Care Plan: RML ASSAY THYROID STIM HORMONE Pending 03/21/2017 Care Plan: RML ASSAY OF FREE THYROXINE Pe nding 03/21/2017 Care Plan: CBC Pending 03/21/2017 Care Plan: RML A1C HPLC LOINC : 18661-2 Pending 03/21/2017 Visit Diagnosis Plan: Mixed hyperlipidemia Discussion: Continue current meds Follow Up: 6 months ICD-9 : 272.4 ICD-10 : E78.2 11/28/2016 Visit Diagnosis Plan: Hypothyroidism, unspecified Disc ussion: Continue current dose ICD-9 : 244.9 ICD-10 : E03.9 11/28/2016 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: Continue weekly injections ICD-9 : 273.4 ICD-10 : E88.01 11/28/2016 Visit Diagnosis Plan: Sebaceous cyst Discussion: Emily swann Discussed removal ICD-9 : 706.2 ICD-10 : L72.3 11/28/2016 Appointment: Jayna Vanessa WPtel: [phone] [phone] / rang and rang on home phone and mobile confirmed~sl FOLLOW UP 11/28/2016 Patient Education: Patient Medication Summary Completed 11/28/2016 Patient Education: Patient Medication Summary Completed 11/20/2016 Referral: Tom Mcrae WPtel: 100 [facility] 440 [id number] [place] Referral Initiated 07/05/2016 Visit Plan: Start with CT abdomen/pelvis Will need EGD and Colonoscopy so will refer to Dr. Pina Obtain most recent lab results 06/05/2016 Appointment: Jayna Vanessa WPtel: [phone] [phone] ACUTE ILLNESS 06/05/2016 Patient Education: Patient Medication Summary Completed 06/05/2016 Care Plan: CT PELVIS W/O DYE LOINC : 361 08-9 Pending 06/05/2016 Care Plan: CT ABDOMEN W/O DYE LOINC : 36 103-0 Pending 06/05/2016 Care Plan: Referral Order SNOMED-CT : [id number] Pending 06/05/2016 Appointment: Jayna Vanessa WPtel: [phone] [phone] [place] INJECTION 05/01/2016 Patient Education: Patient Medication Summary Completed 05/01/2016 Patient Education: Patient Medication Summary Completed 04/26/2016 Care Plan: RML COMPREHEN METABOLIC PANEL LOINC : 14493-1 Pending 04/26/2016 Care Plan: RML ASSAY THYROID STIM HORMONE Pending 04/26/2016 Care Plan: RML ASSAY OF FREE THYROXINE Pe nding 04/26/2016 Care Plan: RML A1C HPLC LOINC : 54279-3 Pending 04/26/2016 Referral: Aditya Stone WPtel: [address] [id number] Arrival time is 10:00 Am~sl Appointment Confirme d 11/25/2015 Visit Plan: Had fasting lab done this AM Continue PT for right shoulder Continue current meds Referral to Dr. Temo Stone for incontinence 11/08/2015 Appointment: Jayna Vanessa WPtel: [facility]6 [phone] 11/06 confirmed-sp FOLLOW UP 11/08/2015 Patient Education: Patient Medication Summary Completed 11/08/2015 Appointment: Jayna Vanessa WPtel: [address] [place], [place] [phone] 10/19 rescheduled ~sl RESCHEDULED 10/24/2015 Appointment: Jayna Vanessa WPtel: [address] [place], [place] [phone] 10/10rang and rang ~sl RESCHEDULED 6 Patient Education: Patient Medication Summary Completed 10/12/2015 Care Plan: RML COMPREHEN METABOLIC PANEL LOINC : 60907-7 Pending 10/12/2015 Care Plan: RML ASSAY THYROID STIM HORMONE Pending 10/12/2015 Care Plan: RML ASSAY OF FREE THYROXINE Pe nding 10/12/2015 Care Plan: RML LIPID PANEL LOINC : 87918 -1 Pending 10/12/2015 Care Plan: CBC Pending 10/12/2015 Care Plan: RML A1C HPLC LOINC : 85816-7 Pending 10/12/2015 Care Plan: VITAMIN D TOTAL (25 HYDROXY) P ending 10/12/2015 Appointment: Jayna Vanessa WPtel: [address] [place], [place] [phone] [place] CANCELED 09/22/2015 Visit Plan: Lab discussed Change thyroid med back to brand synthroid and recheck thyroid lab in 3mos 07/19/2015 Appointment: Jayna Vanessa WPtel: [facility]4 [phone] 07/18/15 appt confirmed cn FOLLOW UP 07/19 Patient Education: Patient Medication Summary Completed 07/19/2015 Patient Education: Patient Medication Summary Completed 07/12/2015 Visit Plan: Lab discussed Change synthro id to 150mcg all days but M, W, F will change to 175mcg Check Lab and fwup in 3mos Flu shot given 03/28/2015 Appointment: Jayna Vanessa WPtel: [address] [place], [place] [phone] 03/25 rang for 1:40 seconds 03/28/ appt confirmed cn FOLLOW UP 03/28/2015 Patient Education: Patient Medication Summary Completed 03/28/2015 Patient Education: Patient Medication Summary Completed 03/21/2015 Visit Plan: Continuue fluoxetine at high er dose Increase synthroid to 150mcg as ordered Decrease propranolol to 20mg po BID Check thyroid lab and fwup in 2mos Prevnar 13 given 02/08/2015 Appointment: Jayna Vanessa WPtel: [address] [place], [place] [phone] [place] FOLLOW UP 02/08/2015 Patient Education: Patient Medication Summary Completed 02/08/2015 Visit Plan: Check CBC, CMP, TSH, Free T4 , uric acid, lactate now Increase fluoxetine to 40mg daily Recheck in 1month Notify if worsening Culture urine 01/11/2015 Appointment: Jayna Vanessa WPtel: [address] [place], [place] [phone] ACUTE ILLNESS 01/11/2015 Patient Education: Patient Medication Summary Completed 01/11/2015 Visit Plan: Lab discussed Accuchecks lucian ly Medrol dose pack Rx for back brace 11/24/2014 Appointment: Jayna Vanessa WPtel: [address] [place], [place] [phone] 11/23 confirmed -mf FOLLOW UP 11/24/2014 Patient Education: Patient Medication Summary Completed 11/24/2014 Appointment: Galina Leos WPtel: [facility]8 [facility] ER Follow UP 11/19/2014 Patient Education: Patient Medication Summary Completed 11/19/2014 Appointment: Con[facility]Ptel[phone] [facility] 10/27/2014 Patient Education: Patient Medication Summary Completed 10/27/2014 Patient Education: [facility] - Saving AutoInj - 18+ - Dynamic Portal ID Completed 10/27/2014 Appointment: Conchita Capone WPtel: [address] [place], [place] [phone] ACUTE ILLNESS 09/23/2014 Patient Education: Patient Medication Summary Completed 09/23/2014 Visit Plan: Lab discussed Continue curre nt meds 07/28/2014 Appointment: Jayna Vanessa WPtel: [address] [place], [place] [phone] 07/27 FOLLOW UP 07/28/2014 Patient Education: Patient Medication Summary Completed 07/28/2014 Patient Education: Patient Medication Summary Completed 07/21/2014 Patient Education: Patient Medication Summary Completed 04/27/2014 Appointment: Jayna Vanessa WPtel: [address] [place], [place] [phone] 03/29 FOLLOW UP 03/30/2014 Patient Education: Patient Medication Summary Completed 03/30/2014 Patient Education: [facility] - Saving AutoInj - 18+ - Dynamic Portal ID Completed 03/30/2014 Visit Plan: Lab discussed DC Vytorin Tri al of Lipitor 80mg q HS Continue Trilipix Check Lipids/CMP/thyroid and HbA1C in 4mos then fwup 11/24/2013 Appointment: Jayna Vanessa WPtel: [address] [place], [place] [phone] FOLLOW UP 11/24/2013 Patient Education: Patient Medication Summary Completed 11/24/2013 Patient Education: [facility] - Saving AutoInj - 18+ - Dynamic Portal ID Completed 11/24/2013 Visit Plan: Lab discussed Daily accuchec ks Cont current meds 08/25/2013 Appointment: Jayna Vanessa WPtel: [facility]7 [phone] 08/24 FOLLOW UP 08/25/2013 Patient Education: Patient Medication Summary Completed 08/25/2013 Appointment: Jayna Vanessa WPtel: [address] [place], [place] [phone] FOLLOW UP 08/05/2013 Visit Plan: Continue Wellbutrin/Fluoxeti ne Fasting lab and fwup in 2mos 06/29/2013 Appointment: Jayna Vanessa WPtel: [address] [place], [place] [phone] 06/26 [facility] FOLLOW UP 06/29/2013 Patient Education: Patient Medication Summary Completed 06/29/2013 Visit Plan: Increase Wellbutrin to 300mg daily Add fluoxetine 20mg daily 05/26/2013 Appointment: Jayna Vanessa WPtel: [address] [place], [place] [phone] FOLLOW UP 05/26/2013 Patient Education: Patient Medication Summary Completed 05/26/2013 Visit Plan: OK to proceed with planned s [facility] surgery next week Continue current meds Check fasting lab--CBC, CMP, TSH, free T4, HbA1C, Lipids, Vit D at end of this week prior to surgery 05/06/2013 Appointment: Jayna Vanessa WPtel: [address] [place], [place] [phone] FOLLOW UP 05/06/2013 Patient Education: Patient Medication Summary Completed 05/06/2013 Appointment: Jayna Vanessa WPtel: [address] [place], [place] [phone] ACUTE ILLNESS 04/23/2013 Patient Education: Patient Medication Summary Completed 04/23/2013 Patient Education: [facility] - Saving AutoInj - 18+ - Dynamic Portal ID Completed 04/23/2013 Visit Plan: Decrease Lasix to 20mg daily Leave potassium at 20meq daily Check Chem 7 in 1wk 03/31/2013 Appointment: Jayna Vanessa WPtel: [address] [place], [place] [phone] FOLLOW UP 03/31/2013 Patient Education: Patient Medication Summary Completed 03/31/2013 Appointment: Liborio Conchita M WPtel: [address] [place], [place] [phone] ACUTE ILLNESS 03/05/2013 Patient Education: Patient Medication Summary Completed 03/05/2013 Visit Plan: Lab discussed Continue curre nt meds Pt is going to start allergy injections Go for port placement to continue prolastin infusions 02/04/2013 Appointment: Jayna Vanessa WPtel: [address] [place], [place] [phone] ACUTE ILLNESS 02/04/2013 Patient Education: Patient Medication Summary Completed 02/04/2013 Visit Plan: 2-D ECHO discussed See Pulmo nology Pt states cough had went away with allergy meds and then has came back Continue allergy meds and add pepcid BID Discussed allergy testing 11/27/2012 Appointment: Jayna Vanessa WPtel: [address] [place], [place] [phone] FOLLOW UP 11/27/2012 Patient Education: Patient Medication Summary Completed 11/27/2012 Visit Plan: PFTS discussed Proceed with 2-D ECHO and pulmonology evaluation Pt was concerned propranolol could be cause but discussed this is likely not culpri HOMERO was DCed in 2009, is on PPI, has seen ENT, will restart allergy meds--may need allergy testing 11/11/2012 Appointment: Jayna Vanessa WPtel: [address] [place], [place] [phone] FOLLOW UP 11/11/2012 Patient Education: Patient Medication Summary Completed 11/11/2012 Visit Plan: Hold metformin Check CMP, Li pids, TSH, Free T4, HbA1C Check PFTs 10/20/2012 Appointment: Jayna Vanessa WPtel: [address] [place], [place] [phone] 10/17 left message FOLLOW UP 10/20/2012 Patient Education: Patient Medication Summary Completed 10/20/2012 Appointment: [facility]el[phone] [phone] 10/13 FOLLOW UP 10/14/2012 Visit Plan: Discussed fluids and rest. W ill monitor for worsening symptoms/fever. Azithromycin, medrol dose pack and refil on cough syrup. Pt. will notify if symptoms worsen or persist. 09/03/2012 Appointment: Lizzie Kelly WPtel: [address] [place], [place] [phone] ACUTE ILLNESS 09/03/2012 Patient Education: Patient Medication Summary Completed 09/03/2012 Visit Plan: discussed that symptoms star edvin around Lion time. Will begin culturelle BID and monitor for fever or worsening symptoms. Fluid intake important. CBC, CMP, sed rate and stool studies. Order written for Mag lab. 07/23/2012 Appointment: Lizzie Kelly WPtel: [address] [place], [place] [phone] ACUTE ILLNESS 07/23/2012 Patient Education: Patient Medication Summary Completed 07/23/2012 Visit Plan: Increase Metformin to 1000mg po BID Accuchecks daily Continue rest of meds at current dose and low-fat, low-sugar diet with increased exercise Check fasting lab in 4mos Restart Nexium 05/20/2012 Appointment: Janya Vanessa WPtel: [address] [place], [place] [phone] patient had bad night so missed 05/06 appt...left voicemail 05/19 FOLLOW UP 05/20/2012 Patient Education: Patient Medication Summary Completed 05/20/2012 Appointment: Jayna Vanessa WPtel: [address] [place], [place] [phone] patient had bad night so missed 05/06 appt time. cn FOLLOW UP 05/06/2012 Appointment: Galina Leos WPtel: [address] [place], [place] [phone] ACUTE ILLNESS 04/04/2012 Patient Education: Patient Medication Summary Completed 04/04/2012 Visit Plan: Cryotherapy as above 02/20/2012 Appointment: Jayna Vanessa WPtel: [address] [place], [place] [phone] 02/18 OFFICE SURGERY 02/20/2012 Patient Education: Patient Medication Summary Completed 02/20/2012 Visit Plan: Increase Metfromin to 1000mg daily Continue all other current meds 01/02/2012 Appointment: Jayna Vanessa WPtel: [address] [place] [address] FOLLOW UP 01/02/2012 Patient Education: Patient Medication Summary Completed 01/02/2012 Appointment: Lizzie Kelly WPtel: [address] [place] [address] ACUTE ILLNESS 09/04/2011 Patient Education: Patient Medication Summary Completed 09/04/2011 Visit Plan: Finish Keflex Proceed with c olonoscopy Increase aspirin to 325mg daily for next 2wks Add Vimovo 20/500mg po Daily 08/14/2011 Appointment: Jayna Vanessa WPtel: [address] [place], [place] [phone] Hospital Follow Up 08/14/2011 Patient Education: Patient Medication Summary Completed 08/14/2011 Appointment: Lizzie Kelly WPtel: [address] [place], [place] [address] ACUTE ILLNESS 07/31/2011 Patient Education: Patient Medication Summary Completed 07/31/2011 Visit Plan: Doxy and steroids. Codeine/g uiaf cough syrup. Pt. will monitor for worsening symptoms and notify if fever occurs. Encouraged rest and fluids. 07/25/2011 Appointment: Lizzie Kelly WPtel: [address] [place] [address] ACUTE ILLNESS 07/25/2011 Patient Education: Patient Medication Summary Completed 07/25/2011 Visit Plan: Check full lab in 3mos Radha nue with all current meds Continue PT for knee 07/12/2011 Appointment: Jayna Vanessa WPtel: [address] [place], [place] [phone] FOLLOW UP 07/12/2011 Patient Education: Patient Medication Summary Completed 07/12/2011 Visit Plan: Continue symbicort for 2 mor e weeks 05/09/2011 Appointment: Jayna Vanessa WPtel: [address] [place], [place] [phone] FOLLOW UP 05/09/2011 Patient Education: Patient Medication Summary Completed 05/09/2011 Appointment: Jayna Vanessa WPtel: [address] [place], [place] [phone] ER Follow UP 05/02/2011 Patient Education: Patient Medication Summary Completed 05/02/2011 Visit Plan: Pt. has recently finished ro und of Cefdinir with no improvement. Chest x-ray, CBC, CMP and mycoplasma order given to pt. Pt. will start Doxycycline. 04/25/2011 Appointment: Lizzie Kelly WPtel: [address] [place], [place] [phone] FOLLOW UP 04/25/2011 Patient Education: Patient Medication Summary Completed 04/25/2011 Appointment: Lizzie Kelly WPtel: [address] [place] [address] ACUTE ILLNESS 04/04/2011 Patient Education: Patient Medication Summary Completed 04/04/2011 Appointment: Lizzie Kelly WPtel: [address] [place] [address] ACUTE ILLNESS 04/03/2011 Visit Plan: Decrease Synthroid to 150mcg daily Repeat TSH and Free T4 in 2mos Knee injection as above 03/01/2011 Appointment: Jayna Vanessa WPtel: [address] [place], [place] [phone] 03/01/2011 Patient Education: Patient Medication Summary Completed 03/01/2011 Visit Plan: Increase Synthroid to 175mcg po daily Check TSH, Free T4 in 8wks Injection given to knee as above Continue Pt 01/04/2011 Appointment: Jayna Vanessa WPtel: [address] [place], [place] [phone] FOLLOW UP 01/04/2011 Patient Education: Patient Medication Summary Completed 01/04/2011 Visit Plan: Septra DS, Mupirocin topical . Pt. will observe wound and report worsening symptoms. 12/07/2010 Appointment: Lizzie Kelly WPtel: [address] [place], [place] [phone] ACUTE ILLNESS 12/07/2010 Patient Education: Patient Medication Summary Completed 12/07/2010 Visit Plan: Increase Synthroid to 150mcg po daily Add Metformin Diet and exercise discussed at length again Repeat thyroid US Add Vit D level Will see if polydipsia improves with metformin 10/09/2010 Appointment: Jayna Vanessa WPtel: [address] [place], [place] [phone] FOLLOW UP 10/09/2010 Patient Education: Patient Medication Summary Completed 10/09/2010 Visit Plan: Increase Synthroid to 125mcg daily Decrease Vit D 50,000 u three times a week Discussed HRT Proceed with sleep study Fwup pending sleep study results 08/07/2010 Appointment: Jayna Vanessa WPtel: [address] [place], [place] [phone] FOLLOW UP 08/07/2010 Patient Education: Patient Medication Summary Completed 08/07/2010 Visit Plan: Decrease Synthroid to 100mcg QD Check thyroid lab in 2mos Check estradiol levels in 2mos--discussed HRT Increase Vit D 50,000u to 1 daily M-F 06/06/2010 Appointment: Jayna Vanessa WPtel: [address] [place], [place] [phone] ACUTE ILLNESS 06/06/2010 Patient Education: Patient Medication Summary Completed 06/06/2010 Visit Plan: Injections to knees as above 04/12/2010 Appointment: Jayna Vanessa WPtel: [address] [place], [place] [phone] OFFICE SURGERY 04/12/2010 Patient Education: Patient Medication Summary Completed 04/12/2010 Visit Plan: Decrease Synthroid to 175mcg QD Check lab in 2mos Change daily Vit D to weekly 03/20/2010 Appointment: Jayna Vanessa WPtel: [address] [place], [place] [phone] ESTABLISHED PATIENT 03/20/2010 Patient Education: Patient Medication Summary Completed 03/20/2010 Appointment: Jayna Vanessa WPtel: [address] [place], [place] [phone] ACUTE ILLNESS 01/30/2010 Patient Education: Patient Medication Summary Completed 01/30/2010 Appointment: Jayna Vanessa WPtel: [address] [place], [place] [phone] ACUTE ILLNESS 01/09/2010 Patient Education: Patient Medication Summary Completed 01/09/2010 Appointment: Jayna Vanessa WPtel: [address] [place], [place] [phone] BP CHECK 11/07/2009 Patient Education: Patient Medication Summary Completed 11/07/2009 Appointment: Jayna Vanessa WPtel: [address] [place], [place] [phone] OFFICE SURGERY 10/26/2009 Patient Education: Patient Medication Summary Completed 10/26/2009 Appointment: Lizzie Kelly WPtel: [address] [place], [place] [phone] OFFICE SURGERY 10/17/2009 Patient Education: Patient Medication [...] up appnt. 10/04/2009 Appointment: Lizzie Kelly WPtel: [address] [place], [place] [phone] ACUTE ILLNESS 10/04/2009 Patient Education: Patient Medication Summary Completed 10/04/2009 Visit Plan: E-scribed refils. Pt. report s that she normally has lab work drawn and orders are given (faxed) to her normal lab facility by Patricia. Pt. states her migraine headaches have abated for now and that she is going to see her migraine doctor in [place] in the near future(Dr Cook) Pt will seek re-eval as necessary for acute issues. 09/21/2009 Appointment: Lizzie Kelly WPtel: [address] [place], [place] [phone] [place] CHECK UP 09/21/2009 Patient Education: Patient Medication Summary Completed 09/21/2009 Appointment: Lizzie Kelly WPtel: [address] [place], [place] [phone] [place] CHECK UP 09/20/2009 Appointment: Lizzie Kelly WPtel: [address] [place], [place] [phone] [place] FOLLOW UP 09/19/2009 Referral: Alf Lang WPtel: 1 [facility] [place] Referral Appointment Requested Referral: Singh Pina WPtel: [address] [facility] [place] Referral Appointment Requested Referral: Aditya Stone WPtel: [address] [place] Referral Appointment Requested Instructions Comment [...] going to see her migraine doctor in [place] in the near future(Dr Cook) Pt will [...]
--- OUTSIDE RECORDS SUMMARY | 2022-09-10 17:02 | XMS REPORT | CCD ---
Author Author Marcella Vanessa D.O. 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 [employer] Name Role Phone Jayna Vanessa D.O., PP Unavailable CCM Unavailable Summary Purpose Interface Exchange Insurance Providers Payer name Policy type / Coverage type Covered alliance party ID Effective Begin Date Effective End Date [employer] Commercial Insurance [id number] Unknown Commercial Insurance [id number] Unknown Family history Side Diagnosis Age At Onset Heart disease Unknown Diabetes Unknown Sister Diagnosis Age At Onset Diabetes Unknown Brother Diagnosis Age At Onset Diabetes Unknown Mother Diagnosis Age At Onset Heart disease Unknown Father Diagnosis Age At Onset Heart disease Unknown Social History Social History Element Codes Description Effective Dates Tobacco history SNOMED CT: 232877057 Never smoker 04/04/2011 Marital status Unknown 09/21/2009 [...] gastroenteritis ICD-10: K52.9 ICD-9: 558.9 07/05/2020 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 11/28/2016 Active [...] ANXIETY STATE NOS ICD-9: 300.00 03/05/2013 Active 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 02/04/2013 A ctive DYSPNEA [...] Fill Instructions Macrobid 100 mg capsule RxNorm: 143468 Take 1 Capsule(s) Oral t wo times a day 09/05/2022 09/11/2022 Active bupropion HCl XL 300 mg 24 hr tablet, extended release RxNor m: 577524 TAKE 1 Tablet BY MOUTH DAILY IN THE MORNING (replaces 150mg DOSE) 08/29/2022 02/24/2023 Active levothyroxine 150 mcg tablet RxNorm: 644064 TAKE ONE TA BLET BY MOUTH EVERY IN THE MORNING 08/29/2022 02/24/2023 Active ciprofloxacin 250 mg tablet RxNorm: 748115 Take 1 Tablet(s) Ora l Q12H 06/29/2022 07/03/2022 Inactive levothyroxine 150 mcg tablet RxNorm: 680923 Take 1 Tablet(s) Or al QAM 06/03/2022 06/03/2022 Inactive Wellbutrin XL 300 mg 24 hr tablet, extended release RxNorm: 701697 Take 1 Tablet(s) Oral QAM replaces 150mg dose 05/28/2022 05/28/2022 Inactive Xyzal 5 mg tablet RxNorm: 389727 Take 1 Tablet(s) Oral QPM 05/10/2010/06/2022 Active Claritin 10 mg tablet RxNorm: 192921 Take 1 Tablet(s) Oral QAM 04/2409/06/2022 Active Flonase Allergy Relief 50 mcg/actuation nasal spray,suspensi on RxNorm: 8408245 Take 1 [place] Nasal two times a day 05/10/2022 06/08/2022 Inactive Wellbutrin XL 150 mg 24 hr tablet, extended release RxNorm: 179457 Take 1 Tablet(s) Oral QAM 05/10/2022 05/27/2022 Inactive sumatriptan 100 mg tablet RxNorm: 727461 1 Tablet(s) Or al after onset of migraine; may repeat after 2 hours if headache returns, not to exceed 200mg in 24hrs replaces rizatriptan 04/19/2022 04/19/2022 Inactive sumatriptan 100 mg tablet RxNorm: 750224 1 Tablet(s) Or al after onset of migraine; may repeat after 2 hours if headache returns, not to exceed 200mg in 24hrs replaces rizatriptan 04/19/2022 04/19/2022 Inactive propranolol 20 mg tablet RxNorm: 540488 TAKE 1 TABLET BY MOUTH TWICE DAILY 04/18/2022 10/14/2022 Active rizatriptan 10 mg disintegrating tablet RxNorm: 163958 Take 1 Tablet(s) Oral on top of tongue, allow to dissolve then swallow once, may repeat every 2 hrs; max 30 mg/24hrs 04/18/2022 04/18/2022 Inactive prednisone 20 mg tablet RxNorm: 873376 Take 1 Tablet(s) Oral tw o times a day 02/15/2022 02/21/2022 Inactive Nurtec ODT 75 mg disintegrating tablet RxNorm: 7871462 T bria 1 Tablet(s) Oral per 24 hours as needed for migraine 02/09/2022 02/09/2022 Inactive Nurtec ODT 75 mg disintegrating tablet RxNorm: 1471148 T bria 1 Tablet(s) Oral per 24 hours as needed for migraine 02/09/2022 02/09/2022 Inactive fluticasone propionate 50 mcg/actuation nasal spray,suspensi on RxNorm: 0898670 SPRAY ONE SPRAY IN EACH NOSTRIL TWICE DAILY NEEDED 02/05/20222021 Inactive levothyroxine 150 mcg tablet RxNorm: 399780 Take 1 Tablet(s) Or al QAM 02/04/2022 02/04/2022 Inactive albuterol sulfate HFA 90 mcg/actuation aerosol inhaler RxNor m: 3976158 Inhale 2 Puff(s) Oral Q4H as needed 01/05/2022 04/04/2022 Inactive pantoprazole 40 mg tablet,delayed release RxNorm: 943850 Take 1 Tablet(s) Oral QD 01/04/2022 07/02/2022 Inactive propranolol 20 mg tablet RxNorm: 776954 TAKE 1 TABLET BY MOUTH TWICE DAILY 01/04/2022 04/17/2022 Inactive levothyroxine 150 mcg tablet RxNorm: 305906 Take 1 Tablet(s) Or al QAM 12/05/2021 12/05/2021 Inactive metronidazole 500 mg tablet RxNorm: 388553 Take 1 Table t(s) Oral two times a day 11/29/2021 12/05/2021 Inactive Singulair 10 mg tablet RxNorm: 722734 Take 1 Tablet(s) Oral QPM 06/202105/09/2022 Inactive Diflucan 100 mg tablet RxNorm: 930314 Take 1 Tablet(s) Oral QD 06/202111/28/2021 Inactive pantoprazole 40 mg tablet,delayed release RxNorm: 175083 Take 1 Tablet(s) Oral QD 11/06/2021 11/06/2021 Inactive fluticasone propionate 50 mcg/actuation nasal spray,suspensi on RxNorm: 5489051 SPRAY ONE SPRAY IN EACH NOSTRIL TWICE DAILY NEEDED 11/03/20212021 Inactive scopolamine 1 mg over 3 days transdermal patch RxNorm: 12385 2 Apply 1 Unit Dose Transdermal Q72H behind ear 10/30/2021 02/05/2022 Inactive albuterol sulfate HFA 90 mcg/actuation aerosol inhaler RxNor m: 3049090 Inhale 2 Puff(s) Oral Q4H as needed 10/05/2021 11/24/2021 Inactive pantoprazole 40 mg tablet,delayed release RxNorm: 142086 Take 1 Tablet(s) Oral QD 10/05/2021 10/05/2021 Inactive meloxicam 7.5 mg tablet RxNorm: 921435 Take 1 Tablet(s) Oral QD for pain 09/05/2021 09/11/2021 Inactive baclofen 10 mg tablet RxNorm: 390856 Take 0.5-1 Tablet( s) Oral three times per week as needed for muscle spasm 09/05/2021 02/05/2022 Inactive prednisone 20 mg tablet RxNorm: 563804 Take 1 Tablet(s) Oral QD 08/202108/28/2021 Inactive pantoprazole 40 mg tablet,delayed release RxNorm: 386878 Take 1 Tablet(s) Oral QD 07/07/2021 09/04/2021 Inactive fluticasone propionate 50 mcg/actuation nasal spray,suspensi on RxNorm: 8573745 Take 1 [place] Nasal two times a day in each nostrilas needed 07/04/2021 10/01/2021 Inactive Decadron 6 mg tablet RxNorm: 210174 Take 1 Tablet(s) Oral QD 202107/08/2021 Inactive albuterol sulfate HFA 90 mcg/actuation aerosol inhaler RxNor m: 1077525 Inhale 2 Puff(s) Oral Q4H as needed 06/08/2021 09/05/2021 Inactive propranolol 20 mg tablet RxNorm: 398230 TAKE 1 TABLET BY MOUTH TWICE DAILY 06/08/2021 06/08/2021 Inactive pantoprazole 40 mg tablet,delayed release RxNorm: 790839 Take 1 Tablet(s) Oral QD 04/09/2021 06/07/2021 Inactive ProAir HFA 90 mcg/actuation aerosol inhaler RxNorm: 872216 2 Puff(s) Inhalation Q4H as needed 03/13/2021 03/13/2021 Inactive citalopram 10 mg tablet RxNorm: 043670 1 Tablet(s) Oral two antonio es a day 03/13/2021 02/05/2022 Inactive levothyroxine 150 mcg tablet RxNorm: 242298 TAKE 1 Tabl et BY MOUTH EVERY MORNING (REPLACES 137 MCG DOSE) 03/09/2021 03/09/2021 Inactive pantoprazole 40 mg tablet,delayed release RxNorm: 252832 Take 1 Tablet(s) Oral QD 02/08/2021 04/08/2021 Inactive triamcinolone acetonide 0.1 % topical cream RxNorm: 5672707 Take Application Topical two times a day to arm rash 01/19/2021 01/19/2021 Inactive prednisone 20 mg tablet RxNorm: 357401 Take 1 Tablet(s) Oral QD 01/23/2021 Inactive levothyroxine 150 mcg tablet RxNorm: 261872 Take 1 Tabl et(s) Oral QAM replaces 137mcg dose 01/03/2021 01/03/2021 Inactive prednisone 20 mg tablet RxNorm: 413683 Take 2 Tablet(s) Oral QD 01/202112/03/2020 Inactive promethazine-DM 6.25 mg-15 mg/5 mL oral syrup RxNorm: 099129 Take 5 Milliliter(s) Oral Every 6 hours as needed, not to exceed 30 mL in 24 hours 11/29/2020 12/03/2020 Inactive doxycycline hyclate 100 mg capsule RxNorm: 4460543 1 Cap kimi(s) Oral two times a day 09/29/2020 10/05/2020 Inactive Lalita-D 12 Hour 60 mg-120 mg tablet,extended release RxNor m: 266631 1 Tablet(s) Oral QD 09/19/2020 10/03/2020 Inactive ProAir HFA 90 mcg/actuation aerosol inhaler RxNorm: 785409 2 Inhalation Q4H as needed 09/19/2020 09/19/2020 Inactive propranolol 20 mg tablet RxNorm: 237483 TAKE 1 TABLET BY MOUTH TWICE DAILY 09/15/2020 09/15/2020 Inactive pantoprazole 40 mg tablet,delayed release RxNorm: 084570 1 Tabl et(s) Oral QD 09/09/2020 09/08/2020 Inactive pantoprazole 40 mg tablet,delayed release RxNorm: 910433 1 Tabl et(s) Oral QD 09/09/2020 11/07/2020 Inactive propranolol 20 mg tablet RxNorm: 456401 TAKE 1 TABLET BY MOUTH TWICE DAILY 08/24/2020 09/09/2020 Inactive levothyroxine 137 mcg tablet RxNorm: 262469 1 Tablet(s) Oral QD 08/202001/02/2021 Inactive fwdfmera-rahirydya-kpgkiiqq 3.5 mg/mL-10,000 unit/mL-0 .1% eye drops RxNorm: 644991 4 Drop(s) Otic three times a day 08/10/2020 02/05/2022 Inactive prednisone 20 mg tablet RxNorm: 119047 1 Tablet(s) Oral two antonio es a day 08/01/2020 08/08/2020 Inactive pantoprazole 40 mg tablet,delayed release RxNorm: 416297 1 Tabl et(s) Oral QD 07/13/2020 09/08/2020 Inactive ondansetron HCl 4 mg tablet RxNorm: 467214 1 Tablet(s) Oral Q4H as needed for nausea 07/13/2020 05/09/2022 Inactive levothyroxine 137 mcg tablet RxNorm: 565278 1 Tablet(s) Oral QD 08/23/2020 Inactive pantoprazole 40 mg tablet,delayed release RxNorm: 016291 1 Tabl et(s) Oral QD 07/13/2020 07/12/2020 Inactive ondansetron HCl 4 mg tablet RxNorm: 221919 1 Tablet(s) Oral Q4H as needed for nausea 07/05/2020 07/12/2020 Inactive Flagyl 500 mg tablet RxNorm: 247656 1 Tablet(s) Oral three time s a day 07/05/2020 07/12/2020 Inactive Fish Oil 1,000 mg (120 mg-180 mg) capsule RxNorm: 1 Caps ule(s) Oral QD 06/23/2020 09/18/2020 Inactive rosuvastatin 10 mg tablet RxNorm: 973224 1 Tablet(s) Oral MWF 06/2306/22/2020 Inactive rosuvastatin 10 mg tablet RxNorm: 227553 1 Tablet(s) Oral MWF 06/2302/05/2022 Inactive fluconazole 100 mg tablet RxNorm: 439760 1 Tablet(s) Oral QOD 05/1706/21/2020 Inactive Macrobid 100 mg capsule RxNorm: 333462 1 Capsule(s) Oral two ti mes a day 05/17/2020 05/24/2020 Inactive levothyroxine 137 mcg tablet RxNorm: 828725 TAKE 1 TABLET BY [facility] ONCE DAILY 05/16/2020 07/12/2020 Inactive Eliquis 5 mg tablet RxNorm: 2376810 1 Tablet(s) Oral two times a da y 04/25/2020 02/05/2022 Inactive propranolol 20 mg tablet RxNorm: 932622 TAKE 1 TABLET BY MOUTH TWICE DAILY 04/25/2020 08/23/2020 Inactive doxycycline hyclate 100 mg capsule RxNorm: 4852064 1 Cap kimi(s) Oral two times a day 03/24/2020 03/31/2020 Inactive doxycycline hyclate 100 mg capsule RxNorm: 9997120 1 Cap kimi(s) Oral two times a day 03/24/2020 03/23/2020 Inactive propranolol 20 mg tablet RxNorm: 297596 TAKE 1 TABLET BY MOUTH TWICE DAILY 03/15/2020 04/13/2020 Inactive Eliquis 5 mg tablet RxNorm: 6837148 1 Tablet(s) Oral two times a da y 03/14/2020 04/24/2020 Inactive Eliquis 5 mg tablet RxNorm: 7040095 1 Tablet(s) Oral two times a da y 03/14/2020 03/13/2020 Inactive levofloxacin 500 mg tablet RxNorm: 909305 1 Tablet(s) Oral QD 02/1802/26/2020 Inactive levofloxacin 500 mg tablet RxNorm: 022013 1 Tablet(s) Oral QD 02/1802/18/2020 Inactive Tessalon Perles 100 mg capsule RxNorm: 137143 1 Capsule (s) Oral three times a day as needed 02/16/2020 02/25/2020 Inactive levothyroxine 137 mcg tablet RxNorm: 452608 TAKE 1 TABLET BY [facility] ONCE DAILY 02/15/2020 03/15/2020 Inactive ProAir HFA 90 mcg/actuation aerosol inhaler RxNorm: 923712 2 Inhalation Q4H as needed 02/11/2020 09/18/2020 Inactive Medrol (Isaiah) 4 mg tablets in a dose pack RxNorm: 366217 Tablet( s) Oral 02/11/2020 02/11/2020 Inactive levothyroxine 137 mcg tablet RxNorm: 773641 TAKE 1 TABLET BY [facility] ONCE DAILY 12/16/2019 01/14/2020 Inactive propranolol 20 mg tablet RxNorm: 463147 TAKE 1 TABLET BY MOUTH TWICE DAILY 12/16/2019 01/14/2020 Inactive levothyroxine 137 mcg tablet RxNorm: 927293 TAKE 1 TABLET BY [facility] ONCE DAILY 10/16/2019 11/14/2019 Inactive prednisone 20 mg tablet RxNorm: 988006 1 Tablet(s) Oral two times a day for rash/hives 09/29/2019 10/04/2019 Inactive Probiotic 10 billion cell capsule RxNorm: 8981095 1 Capsule(s) O ral QD 09/14/2019 02/10/2020 Inactive Bactrim DS 800 mg-160 mg tablet RxNorm: 119308 1 Tablet(s) Oral two times a day 09/14/2019 09/13/2019 Inactive citalopram 10 mg tablet RxNorm: 940271 1 Tablet(s) Oral two antonio es a day 09/14/2019 12/20/2019 Inactive hydroxychloroquine 200 mg tablet RxNorm: 693822 1 Table t(s) Oral two times a day 09/14/2019 02/05/2022 Inactive Bactrim DS 800 mg-160 mg tablet RxNorm: 118866 1 Tablet(s) Oral two times a day 09/14/2019 09/24/2019 Inactive Cipro 250 mg tablet RxNorm: 101177 1 Tablet(s) Oral two times a day 09/02/2019 09/08/2019 Inactive levothyroxine 137 mcg tablet RxNorm: 329392 1 Tablet(s) Oral QD 10/10/2019 Inactive levothyroxine 137 mcg tablet RxNorm: 418524 1 Tablet(s) Oral QD 08/11/2019 Inactive propranolol 20 mg tablet RxNorm: 913322 TAKE 1 TABLET BY MOUTH TWICE DAILY 06/18/2019 12/14/2019 Inactive 06/18/2019 11:09:41 AM Cipro 250 mg tablet RxNorm: 612685 1 Tablet(s) Oral two times a day 04/17/2019 04/16/2019 Inactive Cipro 250 mg tablet RxNorm: 349053 1 Tablet(s) Oral two times a day 04/17/2019 04/24/2019 Inactive Macrobid 100 mg capsule RxNorm: 571855 1 Capsule(s) Oral two ti mes a day 04/15/2019 04/16/2019 Inactive metronidazole 500 mg tablet RxNorm: 457354 1 Tablet(s) Oral thr ee times a day 03/18/2019 03/28/2019 Inactive Bactrim DS 800 mg-160 mg tablet RxNorm: 584646 1 Tablet(s) Oral two times a day 03/18/2019 03/18/2019 Inactive Cipro 250 mg tablet RxNorm: 360098 1 Tablet(s) PO BID 01/26/201901/22 Inactive Flagyl 500 mg tablet RxNorm: 818975 1 Tablet(s) PO TID 01/26/201904/2019 Inactive prednisone 20 mg tablet RxNorm: 836939 1 Tablet(s) PO B ID for 4 days then 1 po daily for 4 days 01/08/2019 03/17/2019 Inactive doxycycline hyclate 100 mg capsule RxNorm: 5459953 1 Capsule(s) PO BID 01/08/2019 01/14/2019 Inactive doxycycline hyclate 100 mg capsule RxNorm: 1619862 1 Capsule(s) PO BID 01/08/2019 01/07/2019 Inactive propranolol 20 mg tablet RxNorm: 047766 1 Tablet(s) PO BID 12/24/1906/17/2019 Inactive Bactrim DS 800 mg-160 mg tablet RxNorm: 770057 1 Tablet (s) PO BID repeat urine culture 48 hours after antibiotics completed. 12/15/2018 12/14/2018 In active Bactrim DS 800 mg-160 mg tablet RxNorm: 828844 1 Tablet (s) PO BID repeat urine culture 48 hours after antibiotics completed. 12/15/2018 12/19/2018 In active levothyroxine 137 mcg tablet RxNorm: 200878 1 Tablet(s) PO QD 12/0906/06/2019 Inactive meclizine 25 mg tablet RxNorm: 474961 1 Tablet(s) PO TID for di zziness 10/30/2018 11/08/2018 Inactive doxycycline hyclate 100 mg tablet RxNorm: 6695149 1 Tablet(s) PO BI D 10/07/2018 10/16/2018 Inactive albuterol sulfate HFA 90 mcg/actuation aerosol inhaler RxNor m: 163780 2 Puff(s) INH Q4H as needed 10/07/2018 02/10/2020 Inactive chlorpheniramine 4 mg tablet RxNorm: 4101010 1 Tablet(s) PO QHS for allergies 10/07/2018 03/17/2019 Inactive Tessalon 200 mg capsule RxNorm: 157401 1 Capsule(s) PO TID 10/08/1910/26/2018 Inactive doxycycline hyclate 100 mg tablet RxNorm: 7229626 1 Tablet(s) PO BI D 10/07/2018 10/06/2018 Inactive Tessalon 200 mg capsule RxNorm: 797633 1 Capsule(s) PO TID 10/08/1910/06/2018 Inactive levothyroxine 137 mcg tablet RxNorm: 617064 1 Tablet(s) PO QD 08/0512/02/2018 Inactive propranolol 20 mg tablet RxNorm: 132355 1 Tablet(s) PO BID 06/23/2012/19/2018 Inactive chlorpheniramine 4 mg tablet RxNorm: 3012192 1 Tablet(s) PO QHS for allergies 06/23/2018 08/21/2018 Inactive levothyroxine 137 mcg tablet RxNorm: 313211 1 Tablet(s) PO QD 06/0308/01/2018 Inactive levothyroxine 137 mcg tablet RxNorm: 526190 1 Tablet(s) PO QD 06/0306/02/2018 Inactive Synthroid 150 mcg tablet RxNorm: 500180 1 Tablet(s) PO QD 04/03/2018 06/22/2018 Inactive Synthroid 150 mcg tablet RxNorm: 373440 1 Tablet(s) PO QD 04/03/2018 04/02/2018 Inactive propranolol 20 mg tablet RxNorm: 681755 1 Tablet(s) PO BID 03/17/20 18 06/14/2018 Inactive propranolol 20 mg tablet RxNorm: 112195 1 Tablet(s) PO BID 03/17/20 18 06/21/2020 Inactive Lancets,Ultra Thin RxNorm: Miscellaneous Use to test blood sugar daily and as needed (Dx: E11.65) 02/28/2018 05/09/2022 Inactive Contour Test Strips RxNorm: Miscellaneous Test b lood sugar daily and as needed (Dx: E11.65) 02/28/2018 05/09/2022 Inactive Contour Meter RxNorm: 1 Miscellaneous DX: E11.65 02/27/20182021 Inactive DX: E11.65 Synthroid 175 mcg tablet RxNorm: 741518 1 Tablet(s) PO QD 01/28/2018 04/02/2018 Inactive Synthroid 175 mcg tablet RxNorm: 201838 1 Tablet(s) PO QD 01/16/2018 04/02/2018 Inactive Medrol (Isaiah) 4 mg tablets in a dose pack RxNorm: 928251 Tablet(s) P O 10/16/2017 01/15/2018 Inactive cyclobenzaprine 7.5 mg tablet RxNorm: 807343 1/2-1 Tablet(s) PO TID as needed 10/16/2017 06/22/2018 Inactive pantoprazole 40 mg tablet,delayed release RxNorm: 021624 1 Tabl et(s) PO QD 08/21/2017 06/22/2018 Inactive Nexium 40 mg capsule,delayed release RxNorm: 553971 1 Capsule(s ) PO QD 08/20/2017 08/20/2017 Inactive doxycycline hyclate 100 mg capsule RxNorm: 6193364 1 Capsule(s) PO BID 08/13/2017 08/12/2017 Inactive doxycycline hyclate 100 mg capsule RxNorm: 8810419 1 Capsule(s) PO BID 08/13/2017 08/19/2017 Inactive Tessalon Perles 100 mg capsule RxNorm: 494746 1 Capsule(s) PO T ID as needed 07/29/2017 08/07/2017 Inactive prednisone 20 mg tablet RxNorm: 963345 1 Tablet(s) PO BID 07/25/2017 07/27/2017 Inactive albuterol sulfate HFA 90 mcg/actuation aerosol inhaler RxNor m: 388099 2 Puff(s) INH Q4H as needed 07/25/2017 10/06/2018 Inactive doxycycline hyclate 100 mg capsule RxNorm: 2549596 1 Capsule(s) PO BID 06/10/2017 06/19/2017 Inactive prednisone 20 mg tablet RxNorm: 270221 1 Tablet(s) PO T ID for 2 days then 1 po BID for 2 days then 1 daily for 3 days 06/10/2017 08/12/2017 Inactive fenofibrate micronized 134 mg capsule RxNorm: 825957 TAKE 1 CAP KIMI DAILY 06/03/2017 06/22/2018 Inactive Zithromax Z-Isaiah 250 mg tablet RxNorm: 044090 Tablet(s) PO Take as directed 05/28/2017 06/09/2017 Inactive prednisone 20 mg tablet RxNorm: 173619 2 Tablet(s) PO QD 05/28/2017 1 08/01/2016 Inactive Tessalon Perles 100 mg capsule RxNorm: 773944 1 Capsule(s) PO T ID as needed 05/28/2017 06/09/2017 Inactive Janumet XR 100 mg-1,000 mg tablet,extended release RxNorm: 1 205184 1 Tablet(s) PO QD 02/14/2017 06/22/2018 Inactive fluoxetine 40 mg capsule RxNorm: 450140 1 Capsule(s) PO QD 02/15/2006/22/2018 Inactive Vitamin D2 50,000 unit capsule RxNorm: 824059 1 Capsule (s) PO TAKE 1 CAPSULE BY MOUTH TWICE WEEKLY 02/11/2017 07/10/2017 Inactive Generic For:* DRISDOL [id number] 02/03/2015 10:10:59 AM Janumet XR 100 mg-1,000 mg tablet,extended release RxNorm: 1 809953 1 Tablet(s) PO QD 09/24/2016 10/06/2018 Inactive Vitamin D2 50,000 unit capsule RxNorm: 613674 Capsule(s ) TAKE 1 CAPSULE BY MOUTH TWICE WEEKLY 09/11/2016 02/11/2017 Inactive Generic For:*DRI SDOL [id number] 02/03/2015 10:10:59 AM Pepcid 20 mg tablet RxNorm: 867992 Tablet(s) PO TAKE 1 TABLET BY MOUTH TWICE DAILY. 06/14/2016 06/13/2016 Inactive fluoxetine 40 mg capsule RxNorm: 428524 1 Capsule(s) PO QD 06/14/20 16 12/10/2016 Inactive loratadine 10 mg tablet RxNorm: 806125 1 Tablet(s) PO QD 1 Tabl et(s) PO BID 06/14/2016 04/03/2017 Inactive [AttnRPh: Saving ryan ly/adjudicate RxGRP:SG20 RxBIN:[id number] RxPCN: ID#:[id number]] Vitamin D2 50,000 unit capsule RxNorm: 947575 Capsule(s ) TAKE 1 CAPSULE BY MOUTH TWICE WEEKLY 06/14/2016 09/10/2016 Inactive Generic For:*DRI SDOL [id number] 02/03/2015 10:10:59 AM Synthroid 175 mcg tablet RxNorm: 532792 1 Tablet(s) PO Saturday t hrough Saturday QD 06/05/2016 01/15/2018 Inactive Synthroid 150 mcg tablet RxNorm: 522863 1 Tablet(s) PO Sat and Sun 11/09/2015 06/04/2016 Inactive Synthroid 175 mcg tablet RxNorm: 004974 1 Tablet(s) PO Saturday t hrough Saturday11/09/2015 06/04/2016 Inactive Synthroid 150 mcg tablet RxNorm: 761426 1 Tablet(s) PO Sat and Sun , Sat, Sun 11/09/2015 11/08/2015 Inactive Janumet XR 100 mg-1,000 mg tablet,extended release RxNorm: 1 422613 TAKE 1 TABLET DAILY 09/30/2015 09/24/2016 Inactive azithromycin 500 mg tablet RxNorm: 175548 1 Tablet(s) PO QD 016 07/25/2015 Inactive azithromycin 500 mg tablet RxNorm: 093909 1 Tablet(s) PO QD 016 08/01/2015 Inactive loratadine 10 mg tablet RxNorm: 690684 1 Tablet(s) PO BID 04/06/2015 06/14/2016 Inactive [AttnRPh: Saving apply/adjudicate RxGRP: SG20 RxBIN:[id number] RxPCN: ID#:[id number]] Synthroid 175 mcg tablet RxNorm: 116188 1 Tablet(s) PO M, W, F 10/201411/08/2015 Inactive Synthroid 150 mcg tablet RxNorm: 658072 1 Tablet(s) PO QD Tu, T h, Sat, Sun 03/28/2015 11/08/2015 Inactive propranolol 20 mg tablet RxNorm: 412734 1 Tablet(s) PO BID 02/09/20 15 06/13/2016 Inactive fluoxetine 40 mg capsule RxNorm: 410934 1 Capsule(s) PO QD 02/09/20 15 06/14/2016 Inactive Vitamin D2 50,000 unit capsule RxNorm: 054080 TAKE 1 CA PSULE BY MOUTH TWICE WEEKLY 02/03/2015 06/14/2016 Inactive Generic For:*DRI SDOL [id number] 02/03/2015 10:10:59 AM Lipitor 80 mg tablet RxNorm: 930200 1 Tablet(s) PO QD 01/24/201507/26 Inactive [AttnRPh: Saving apply/adjudicate RxGRP: SG20 RxBIN:[id number] RxPCN: ID#:[id number]] Bactrim DS 800 mg-160 mg tablet RxNorm: 953718 1 Tablet(s) PO BID 0 01/12/2015 01/11/2015 Inactive Synthroid 150 mcg tablet RxNorm: 054216 1 Tablet(s) PO QD 01/12/2015 03/27/2015 Inactive Bactrim DS 800 mg-160 mg tablet RxNorm: 492495 1 Tablet(s) PO BID 0 01/12/2015 01/18/2015 Inactive fluoxetine 40 mg capsule RxNorm: 739885 1 Capsule(s) PO QD 01/12/20 15 02/07/2015 Inactive Synthroid 137 mcg tablet RxNorm: 880814 1 Tablet(s) PO QD 12/08/2014 01/11/2015 Inactive [AttnRPh: Saving apply/adjudicate RxGRP: SG20 RxBIN:[id number] RxPCN: ID#:[id number]] Medrol (Isaiah) 4 mg tablets in a dose pack RxNorm: 919855 6 Tablet(s) PO QD --then as directed 11/24/2014 11/29/2014 Inactive albuterol sulfate HFA 90 mcg/actuation aerosol inhaler RxNor m: 085404 2 Puff(s) INH Q4H as needed 10/27/2014 07/24/2017 Inactive phenazopyridine 100 mg tablet RxNorm: 5294822 1 Tablet(s) PO TID 11/07/2015 Inactive [AttnRPh: Saving apply/adjud icate RxGRP:SG20 RxBIN:[id number] RxPCN: ID#:[id number]] Macrobid 100 mg capsule RxNorm: 759372 1 Capsule(s) PO BID 10/28/19 15 11/02/2014 Inactive [SAVINGS FOR NON-COVERED RUBIO GS -- BIN:[id number], PCN: ASPROD1, Group: XXXXX, ID# [id number], Questions: . THIS IS NOT INSURANCE.] prednisone 20 mg tablet RxNorm: 066238 1 Tablet(s) PO BID 10/27/2014 10/31/2014 Inactive AttnRPh: Saving apply/adjudicate RxGRP:S G20 RxBIN:[id number] RxPCN:HT ID#:[id number]: Saving apply/adjudicate RxGRP:SG20 RxBIN:[id number] RxPCN:HT ID#:[id number] Macrobid 100 mg capsule RxNorm: 288388 1 Capsule(s) PO BID 09/24/19 15 09/29/2014 Inactive [SAVINGS FOR NON-COVERED RUBIO GS -- BIN:[id number], PCN: ASPROD1, Group: XXXXX, ID# [id number], Questions: . THIS IS NOT INSURANCE.] phenazopyridine 100 mg tablet RxNorm: 8564615 1 Tablet(s) PO TID 09/24/2014 Inactive [SAVINGS FOR NON-COVERED RUBIO GS -- BIN:067849, PCN: ASPROD1, Group: XXXXX, ID# [id number], Questions: . THIS IS NOT INSURANCE.] propranolol 60 mg tablet RxNorm: 984877 1 Tablet(s) PO QD 07/26/2014 02/07/2015 Inactive [SAVINGS FOR UNINSURED PATIENTS -- BIN:0 83238, PCN: ASPROD1, Group: [id number], ID# [id number], Process claim through [employer], for questions: . THIS IS NOT INSURANCE.] loratadine 10 mg tablet RxNorm: 234700 1 Tablet(s) PO BID 07/12/2014 07/11/2014 Inactive [AttnRPh: Saving apply/adjudicate RxGRP: [id number] RxBIN:[id number] RxPCN: ID#:[id number]] loratadine 10 mg tablet RxNorm: 248937 1 Tablet(s) PO BID 07/12/2014 10/06/2018 Inactive [SAVINGS FOR UNINSURED PATIENTS -- BIN:0 [id number], PCN: ASPROD1, Group: [id number], ID# [id number], Process claim through [employer], for questions: . THIS IS NOT INSURANCE.] Vitamin D2 50,000 unit capsule RxNorm: 699497 1 Capsule (s) PO Take 1 capsule by mouth twice weekly 05/18/2014 02/02/2015 Inactive Pepcid 20 mg tablet RxNorm: 055543 TAKE 1 TABLET BY MOUTH TWICE DAILY. 05/18/2014 06/14/2016 Inactive Generic For:PEPCID 2 0MG 05/18/2014 11:28:51 AM Janumet XR 100 mg-1,000 mg tablet,extended release RxNorm: 1 750637 1 Tablet(s) PO QD 05/12/2014 08/09/2014 Inactive [SAVINGS FOR UNI NSURED PATIENTS -- BIN:[id number], PCN: ASPROD1, Group: [id number], ID# [id number], Process claim through [employer], for questions: . THIS IS NOT INSURANCE.] Voltaren 1 % topical gel RxNorm: 245632 TOP BID 04/21/2014 5 Inactive Apply to affected areas 2-3 times daily as needed. Trilipix 135 mg capsule,delayed release RxNorm: 507817 1 Tablet(s) PO QD 1 Capsule(s) PO QD 04/21/2014 09/17/2014 Inactive may do 90 day f ill if desired Synthroid 137 mcg tablet RxNorm: 965210 1 Tablet(s) PO QD 03/30/2014 09/25/2014 Inactive [AttnRPh: Saving apply/adjudicate RxGRP: SG20 RxBIN:[id number] RxPCN: ID#:[id number]] Cipro 250 mg tablet RxNorm: 684845 1 Tablet(s) PO BID 03/30/201403/24 Inactive [SAVINGS FOR UNINSURED PATIENTS -- BIN:0 [id number], PCN: ASPROD1, Group: [id number], ID# [id number], Process claim through MedImp[employer], for questions: . THIS IS NOT INSURANCE.] Janumet XR 100 mg-1,000 mg tablet,extended release RxNorm: 1 866370 2 Tablet(s) PO QD 01/06/2014 01/05/2014 Inactive [SAVINGS FOR UNI NSURED PATIENTS -- BIN:011716, PCN: ASPROD1, Group: [id number], ID# [id number], Process claim through [employer], for questions: . THIS IS NOT INSURANCE.] Janumet XR 100 mg-1,000 mg tablet,extended release RxNorm: 1 223883 1 Tablet(s) PO QD 01/06/2014 04/05/2014 Inactive [SAVINGS FOR UNI NSURED PATIENTS -- BIN:348793, PCN: ASPROD1, Group: [id number], ID# [id number], Process claim through [employer], for questions: . THIS IS NOT INSURANCE.] propranolol 60 mg tablet RxNorm: 284296 1 Tablet(s) PO QD 12/28/2013 07/26/2014 Inactive [AttnRPh: Saving apply/adjudicate RxGRP: SG20 RxBIN:[id number] RxPCN: ID#:[id number]] Synthroid 150 mcg tablet RxNorm: 704288 1 Tablet(s) PO QD brand onl y 12/28/2013 04/20/2014 Inactive [AttnRPh: Saving apply/adjud icate RxGRP:SG20 RxBIN:[id number] RxPCN:HT ID#:[id number]] Vitamin D2 50,000 unit capsule RxNorm: 741525 1 Capsule (s) PO Take 1 capsule by mouth twice weekly 12/02/2013 05/17/2014 Inactive Lipitor 80 mg tablet RxNorm: 881302 1 Tablet(s) PO QD 11/24/201305/25 Inactive [AttnRPh: Saving apply/adjudicate RxGRP: SG20 RxBIN:[id number] RxN: ID#:[id number]] loratadine 10 mg tablet RxNorm: 750957 1 Tablet(s) PO BID 11/17/2013 07/12/2014 Inactive fluoxetine 20 mg capsule RxNorm: 371598 1 Capsule(s) PO QAM TAKE ONE CAPSULE BY MOUTH ONCE DAILY IN THE MORNING. 11/04/2013 01/10/2015 Inactive Generic For:PROZAC 20MG Generic For:PROZAC 20MG 06/23/2013 11:55:55 AM [AttnRPh: Saving apply/adjudicate RxGRP:SG20 RxBIN:[id number] RxPCN: ID#:[id number]] Vytorin 10 mg-80 mg tablet RxNorm: 0416704 Tablet(s) PO TAKE ONE TABLET BY MOUTH ONCE DAILY IN THE EVENING. 09/30/2013 11/23/2013 Inactive Trilipix 135 mg capsule,delayed release RxNorm: 693108 1 Capsul e(s) PO QD 07/15/2013 04/21/2014 Inactive may do 90 day fill i f desired Voltaren 1 % topical gel RxNorm: 766034 TOP BID 07/15/2013 4 Inactive Apply to affected areas 2-3 times daily as needed. Wellbutrin XL 300 mg 24 hr tablet, extended release RxNorm: 364532 1 Tablet(s) PO QAM 06/29/2013 04/03/2017 Inactive fluoxetine 20 mg capsule RxNorm: 157132 1 Capsule(s) PO QAM TAKE ONE CAPSULE BY MOUTH ONCE DAILY IN THE MORNING. 06/29/2013 11/04/2013 Inactive Generic For:PROZAC 20MG Generic For:PROZAC 20MG 06/23/2013 11:55:55 AM fluoxetine 20 mg capsule RxNorm: 048466 Capsule(s) PO T BRIA ONE CAPSULE BY MOUTH ONCE DAILY IN THE MORNING. 06/23/2013 06/28/2013 Inactive Gener ic For:PROZAC 20MG Generic For:PROZAC 20MG 06/23/2013 11:55:55 AM Synthroid 150 mcg tablet RxNorm: 787466 1 Tablet(s) PO QD brand onl y 06/08/2013 12/04/2013 Inactive Vytorin 10 mg-80 mg tablet RxNorm: 4799252 1 Tablet(s) PO QD 201209/05/2013 Inactive TAKE 1 TABLET BY MOUTH DAILY propranolol 60 mg tablet RxNorm: 889679 1 Tablet(s) PO QD 06/08/2013 12/04/2013 Inactive Pepcid 20 mg tablet RxNorm: 167121 Tablet(s) PO TAKE 1 TABLET BY MOUTH TWICE DAILY. 06/04/2013 11/23/2013 Inactive fluoxetine 20 mg capsule RxNorm: 078718 1 Capsule(s) PO QAM 013 06/22/2013 Inactive Wellbutrin XL 300 mg 24 hr tablet, extended release RxNorm: 706277 1 Tablet(s) PO QAM 05/26/2013 06/28/2013 Inactive Wellbutrin XL 150 mg 24 hr tablet, extended release RxNorm: 112997 1 Tablet(s) PO QD 05/15/2013 05/25/2013 Inactive Wellbutrin XL 150 mg 24 hr tablet, extended release RxNorm: 099398 1 Tablet(s) PO QD 05/15/2013 05/14/2013 Inactive Kombiglyze XR 5 mg-500 mg tablet,extended release RxNorm: 10 66670 1 Tablet(s) PO QD 05/07/2013 05/15/2013 Inactive cefdinir 300 mg capsule RxNorm: 565492 2 Capsule(s) PO QD 04/23/2013 05/02/2013 Inactive AttnRPh: Saving apply/adjudicate RxGRP:S G20 RxBIN:[id number] RxPCN:HT ID#:[id number] Pepcid 20 mg tablet RxNorm: 567690 Tablet(s) PO TAKE 1 TABLET BY MOUTH TWICE DAILY. 04/17/2013 06/13/2016 Inactive Pepcid 20 mg tablet RxNorm: 759961 1 Tablet(s) PO BID 04/06/201305/24 Inactive Vytorin 10-80 10 mg-80 mg tablet RxNorm: 665998 1 Tablet(s) PO QD 0 02/19/2013 06/08/2013 Inactive TAKE 1 TABLET BY MOUTH DAILY loratadine 10 mg tablet RxNorm: 292317 1 Tablet(s) PO BID 01/23/2013 07/21/2013 Inactive Synthroid 150 mcg tablet RxNorm: 090917 1 Tablet(s) PO QD brand onl y 12/02/2012 06/08/2013 Inactive propranolol 60 mg tablet RxNorm: 976010 1 Tablet(s) PO QD 12/02/2012 06/08/2013 Inactive Trilipix 135 mg capsule,delayed release RxNorm: 424308 1 Capsul e(s) PO QD 12/02/2012 05/30/2013 Inactive may do day fill i f desired Pepcid 20 mg tablet RxNorm: 322760 1 Tablet(s) PO BID 11/27/201203/24 Inactive Effexor XR 150 mg capsule,extended release RxNorm: 501086 1 Cap kimi(s) PO QD 11/24/2012 05/14/2013 Inactive Vytorin 10-80 10 mg-80 mg tablet RxNorm: 618329 1 Tablet(s) PO QD 0 11/24/2012 2013 Inactive TAKE 1 TABLET BY MOUTH DAILY Vytorin 10-80 10 mg-80 mg tablet RxNorm: 997914 1 Tablet(s) PO QD 0 11/21/2012 11/24/2012 Inactive TAKE 1 TABLET BY MOUTH DAILY Effexor XR 150 mg capsule,extended release RxNorm: 375271 1 Cap kimi(s) PO QD 11/21/2012 11/24/2012 Inactive loratadine 10 mg tablet RxNorm: 0934865 1 Tablet(s) PO BID 11/12/19 13 01/23/2013 Inactive Vytorin 10-80 10 mg-80 mg tablet RxNorm: 009565 Tablet( s) PO TAKE 1 TABLET BY MOUTH ONCE DAILY. 10/15/2012 11/21/2012 Inactive Vytorin 10-80 10 mg-80 mg tablet RxNorm: 446414 1 Tablet(s) PO QD 0 10/15/2012 11/20/2012 Inactive TAKE 1 TABLET BY MOUTH DAILY Effexor XR 150 mg capsule,extended release RxNorm: 199957 1 Cap kimi(s) PO QD 10/15/2012 11/20/2012 Inactive Effexor XR 150 mg capsule,extended release RxNorm: 135356 Capsule(s) PO TAKE 1 CAPSULE BY MOUTH ONCE DAILY 10/15/2012 11/21/2012 Inactive azithromycin 250 mg tablet RxNorm: 777771 2 Tablet(s) PO QD 013 09/10/2012 Inactive Culturelle 10 billion cell capsule RxNorm: 876944 1 Cap kimi(s) PO BID for diarrhea maintenance 09/03/2012 10/02/2012 Inactive Medrol (Isaiah) 4 mg tablets in a dose pack RxNorm: 143068 Tablet(s) PO as directed 09/03/2012 07/11/2011 Active as directed Culturelle 10 billion cell capsule RxNorm: 917963 1 Capsule(s) PO BID 07/23/2012 08/21/2012 Inactive Vitamin D2 50,000 unit capsule RxNorm: 938043 Capsule(s ) PO TAKE 1 CAPSULE EVERY DAY SATURDAY THRU Saturday07/09/2012 08/20/2013 Inactive Vitamin D2 50,000 unit capsule RxNorm: 1218562 Capsule(s ) PO TAKE 1 CAPSULE EVERY DAY SATURDAY THRU Saturday07/07/2012 07/08/2012 Inactive Vitamin D2 50,000 unit capsule RxNorm: 1330910 Capsule(s ) PO TAKE 1 CAPSULE EVERY DAY SATURDAY THRU Saturday07/07/2012 07/06/2012 Inactive Vitamin D2 50,000 unit capsule RxNorm: 4048921 Capsule(s ) PO TAKE 1 CAPSULE EVERY DAY SATURDAY THRU Saturday06/27/2012 07/06/2012 Inactive Synthroid 150 mcg tablet RxNorm: 022845 1 Tablet(s) PO QD brand onl y 06/09/2012 12/02/2012 Inactive metformin 1,000 mg tablet RxNorm: 310562 1 Tablet(s) PO BID rep laces 500mg dose 05/20/2012 11/10/2012 Inactive propranolol 60 mg tablet RxNorm: 772011 1 Tablet(s) PO QD 04/23/2012 12/02/2012 Inactive Effexor XR 150 mg capsule,extended release RxNorm: 909657 1 Cap kimi(s) PO QD 04/04/2012 09/30/2012 Inactive Zyrtec 10 mg tablet RxNorm: 5149466 1 Tablet(s) PO QD 04/04/201203/24 Inactive Trilipix 135 mg capsule,delayed release RxNorm: 036280 1 Capsul e(s) PO QD 03/19/2012 12/02/2012 Inactive may do 90 day fill i f desired Vytorin 10-80 10 mg-80 mg tablet RxNorm: 434875 1 Tablet(s) PO QD 0 01/31/2012 07/28/2012 Inactive TAKE 1 TABLET BY MOUTH DAILY Voltaren 1 % topical gel RxNorm: 871029 TOP BID 01/25/2012 4 Inactive Apply to affected areas 2-3 times daily as needed. Synthroid 150 mcg tablet RxNorm: 693911 1 Tablet(s) PO QD brand onl y 01/02/2012 06/09/2012 Inactive metformin ER 1,000 mg 24 hr Tab Ctrl Rel RxNorm: 862768 1 Table t(s) PO QD 01/02/2012 05/19/2012 Inactive metformin ER 500 mg 24 hr Tab RxNorm: 124727 Tablet(s) PO 12/21/2011 01/01/2012 Inactive TAKE 1 TABLET BY MOUTH ONCE DAILY. Voltaren 1 % Topical Gel RxNorm: 130455 TOP BID 11/28/2011 2 Inactive Apply to affected areas 2-3 times daily as needed. propranolol 60 mg tablet RxNorm: 898966 1 Tablet(s) PO QD 10/17/2011 04/23/2012 Inactive Effexor XR 150 mg capsule,extended release RxNorm: 489273 1 Cap kimi(s) PO QD 09/13/2011 04/04/2012 Inactive Medrol (Isaiah) 4 mg tablets in a dose pack RxNorm: 934611 Tablet(s) PO as directed 09/04/2011 07/11/2011 Active as directed doxycycline hyclate 100 mg Tab RxNorm: 6738933 1 Tablet(s) PO BID 0 09/04/2011 09/13/2011 Inactive doxycycline monohydrate 100 mg Tab RxNorm: 8816678 1 Tablet(s) P O BID 07/25/2011 08/03/2011 Inactive prednisone 10 mg Tab RxNorm: 553646 1 Tablet(s) PO TID 07/25/201112/2011 Inactive Synthroid 150 mcg Tab RxNorm: 261026 1 Tablet(s) PO QD brand only 0 07/12/2011 01/02/2012 Inactive Vytorin 10-80 10 mg-80 mg Tab RxNorm: 839682 1 Tablet(s) PO QD 05/2601/31/2012 Inactive TAKE 1 TABLET BY MOUTH DAILY Vitamin D2 50,000 unit capsule RxNorm: 7170524 1 Capsule(s) PO Q D M-F 05/15/2011 06/26/2012 Inactive TAKE 1 CAPSULE BY MO [facility] DAILY SATURDAY THROUGH FRIDAYS Synthroid 150 mcg Tab RxNorm: 364981 1 Tablet(s) PO QD brand only 1 07/09/2010 07/11/2011 Inactive doxycycline monohydrate 100 mg Tab RxNorm: 4397208 1 Tablet(s) P O BID 04/25/2011 05/04/2011 Inactive Trilipix 135 mg capsule,delayed release RxNorm: 978836 1 Capsul e(s) PO QD 04/23/2011 03/19/2012 Inactive cefdinir 300 mg Cap RxNorm: 055023 1 Capsule(s) PO BID 04/04/2011 Inactive propranolol 60 mg Tab RxNorm: 785587 1 Tablet(s) PO QD 03/26/2011 Inactive Ultram 50 mg Tab RxNorm: 473335 1-2 Tablet(s) PO QID 03/22/201103/21 Active prn pain metformin ER 500 mg 24 hr Tab RxNorm: 266626 1 Tablet(s) PO QD 06/201006/21/2011 Inactive Synthroid 150 mcg Tab RxNorm: 014596 1 Tablet(s) PO QD 02/22/201112/2010 Inactive Vytorin 10-80 10 mg-80 mg Tab RxNorm: 252374 1 Tablet(s) PO QD 01/2303/13/2011 Inactive TAKE 1 TABLET BY MOUTH DAILY Trilipix 135 mg Cap RxNorm: 412326 1 Capsule(s) PO QD 01/10/201103/26 Inactive Effexor XR 150 mg 24 hr Cap RxNorm: 226773 1 Capsule(s) PO QD 01/0908/06/2011 Inactive Vitamin D 50,000 unit Cap RxNorm: 5139177 Capsule(s) PO 12/20/2010 Inactive TAKE 1 CAPSULE BY MOUTH DAILY Fridays Septra DS 800 mg-160 mg Tab RxNorm: 319774 1 Tablet(s) PO BID 12/0712/16/2010 Inactive mupirocin 2 % Ointment RxNorm: 547428 1 Application TOP BID Apply to affected area twice daily 12/07/2010 12/13/2010 Inactive Trilipix 135 mg Cap RxNorm: 766391 1 Capsule(s) PO QD 10/16/201003/26 Inactive Synthroid 150 mcg Tab RxNorm: 656821 1 Tablet(s) PO QD 10/09/201006/2010 Inactive metformin ER 500 mg 24 hr Tab RxNorm: 489653 1 Tablet(s) PO QD 09/2202/22/2011 Inactive Nexium 40 mg Cap RxNorm: 480627 1 Capsule(s) PO QD 10/05/2010 019 Inactive Vytorin 10-80 10 mg-80 mg Tab RxNorm: 606129 1 Tablet(s) PO QD 09/201002/12/2011 Inactive propranolol 60 mg Tab RxNorm: 406544 1 Tablet(s) PO QD 09/18/201008/2010 Inactive Synthroid 125 mcg Tab RxNorm: 033556 1 Tablet(s) PO QD 08/07/2010 Inactive Synthroid 125 mcg Tab RxNorm: 540449 1 Tablet(s) PO QD 08/07/2010 Inactive Voltaren 1 % Topical Gel RxNorm: 496223 TOP BID Apply t o affected areas 2-3 times daily as needed. 08/01/2010 11/28/2011 Inactive Voltaren 1 % Topical Gel RxNorm: 204499 TOP BID Apply t o affected areas 2-3 times daily as needed. 07/04/2010 07/31/2010 Inactive Advair Diskus 250 mcg-50 mcg/dose for Inhalation RxNorm: 135 9859 1 Puff(s) INH Q12H 07/04/2010 07/11/2011 Inactive Effexor XR 150 mg 24 hr Cap RxNorm: 471501 1 Capsule(s) PO QD 06/0801/03/2011 Inactive Synthroid 100 mcg Tab RxNorm: 227084 1 Tablet(s) PO QD 06/06/2010 Inactive Vitamin D 50,000 unit Cap RxNorm: 8327447 1 Capsule(s) PO QD M-F 05/15/2011 Inactive Synthroid 150 mcg Tab RxNorm: 699557 1 Tablet(s) PO 05/25/20102010 Inactive Vytorin 10-80 10 mg-80 mg Tab RxNorm: 461207 1 Tablet(s) PO QD 04/2509/25/2010 Inactive Trilipix 135 mg Cap RxNorm: 770702 1 Capsule(s) PO QD 04/17/201009/23 Inactive propranolol 60 mg Tab RxNorm: 248093 1 Tablet(s) PO QD 01/09/2010 Inactive Advair Diskus 250 mcg-50 mcg/dose for Inhalation RxNorm: 135 9859 1 Puff(s) INH Q12H 12/26/2009 07/04/2010 Inactive Advair Diskus 250 mcg-50 mcg/Dose for Inhalation RxNorm: 135 9859 1 Puff(s) INH Q12H 11/26/2009 12/25/2009 Inactive Synthroid 200 mcg Tab RxNorm: 431177 1 Tablet(s) PO QD 11/24/2009 Inactive Effexor XR 150 mg 24 hr Cap RxNorm: 007143 1 Capsule(s) PO QD 10/2705/24/2010 Inactive Lisinopril 10 mg Tab RxNorm: 160055 1 Tablet(s) PO QD 10/17/200909/23 Inactive Propranolol 60 mg Tab RxNorm: 763818 1 Tablet(s) PO QD 10/17/2009 Inactive Septra DS 160 mg-800 mg Tab RxNorm: 266026 1 Tablet(s) PO BID 10/0410/08/2009 Inactive Mupirocin 2 % Ointment RxNorm: 445527 TOP Q6-8H 10/04/2009 10/10/2009 Inactive Voltaren 1 % Topical Gel RxNorm: 610092 TOP BID Apply t o affected areas 2-3 times daily as needed. 09/21/2009 03/19/2010 Inactive Trilipix 135 mg Cap RxNorm: 519602 1 Capsule(s) PO QD 09/20/200902/23 Inactive Nexium 40 mg Cap RxNorm: 790771 1 Capsule(s) PO QD 09/19/2009 010 Inactive Tylenol Arthritis 650 mg Tab RxNorm: 1439291 2 Tablet(s) PO BID 09/21 Active Vitamin D3 5,000 unit tablet RxNorm: 995800 1 Tablet(s) PO QD 019 Active Synthroid 150 mcg tablet RxNorm: 649501 1 Tablet(s) PO QD 01/12/2015 01/11/2015 Inactive Synthroid 150 mcg tablet RxNorm: 578901 1 Tablet(s) PO Saturday and Saturday01/16/2018 01/15/2018 Inactive Vitamin D 2,000 unit Cap RxNorm: 1 Capsule(s) PO QD 01/30/201002/2010 Inactive Flexeril 5 mg tablet RxNorm: 680565 1/2 to 1 Tablet(s) PO TID as needed for muscle spasm 06/10/2017 06/09/2017 Inactive Medrol (Isaiah) 4 mg Tabs in a Dose Pack RxNorm: 847167 Tablet(s) PO 0 09/04/2011 07/11/2011 Inactive as directed fenofibrate micronized 134 mg capsule RxNorm: 740740 1 Capsule( s) PO QD 06/03/2017 06/02/2017 Inactive Vitamin D2 50,000 unit capsule RxNorm: 227491 Capsule(s ) PO Take 1 capsule by mouth twice weekly 12/02/2013 12/01/2013 Inactive prednisone 20 mg tablet RxNorm: 235148 1 Tablet(s) PO BID 03/30/2014 03/29/2014 Inactive AttnRPh: Saving apply/adjudicate RxGRP:S G20 RxBIN:[id number] RxPCN:HT ID#:[id number]: Saving apply/adjudicate RxGRP:SG20 RxBIN:[id number] RxPCN:HT ID#:[id number] Soma 350 mg tablet RxNorm: 077670 1 Tablet(s) PO TID prn spasm 01/2310/08/2010 Inactive Lancets,Ultra Thin RxNorm: Miscellaneous Use to test blood sugar daily and as needed (Dx: E11.65) 02/28/2018 02/27/2018 Inactive pantoprazole 40 mg tablet,delayed release RxNorm: 681368 1 Tabl et(s) PO QD 08/21/2017 08/20/2017 Inactive Janumet XR 100 mg-1,000 mg tablet,extended release RxNorm: 1 439872 2 Tablet(s) PO QD 01/06/2014 01/05/2014 Inactive Contour Meter RxNorm: miscellaneous 02/27/2018 02/26/2018 Inactive Synthroid 200 mcg Tab RxNorm: 126181 1 Tablet(s) PO QD 11/24/200907/2009 Inactive Kombiglyze XR 5 mg-500 mg tablet,extended release RxNorm: 10 07713 1 Tablet(s) PO QD 05/07/2013 05/06/2013 Inactive Zithromax Z-Isaiah 250 mg tablet RxNorm: 474079 Tablet(s) PO as di rected 05/14/2013 05/13/2013 Inactive AttnRPh: Saving appl y/adjudicate RxGRP:SG20 RxBIN:[id number] RxPCN:HT ID#:[id number] Fish Oil 1,000 mg capsule RxNorm: 3 Capsule(s) PO QD 04/04/2017 Inactive Lasix Oral RxNorm: Oral 03/30/2014 03/29/2014 Inactive loratadine 10 mg tablet RxNorm: 465022 1 Tablet(s) PO QD 08/20/2017 0 08/19/2017 Inactive Vitamin D 5,000 unit Tab RxNorm: 1 Tablet(s) PO twice a week 1 08/07/2009 06/05/2010 Inactive permethrin 5 % Topical Cream RxNorm: 334806 TOP Use as directed 02/03/2013 Inactive Gabapentin 100 mg Tab RxNorm: 117101 1 Tablet(s) PO BID 04/12/2010 Inactive Voltaren 1 % topical gel RxNorm: 195088 TOP as needed 06/23/201805/26 Inactive Gabapentin 300 mg Cap RxNorm: 786200 1 Capsule(s) PO BID 07/12/2011 0 07/11/2011 Inactive Contour Test Strips RxNorm: Miscellaneous Test blood sug ar daily (Dx: E11.65) 02/28/2018 02/27/2018 Inactive Promethazine 25 mg Tab RxNorm: 845926 1 Tablet(s) PO Q6 -8H As needed for nausea and vomiting. 10/09/2010 10/08/2010 Inactive propranolol 20 mg tablet RxNorm: 400017 1 Tablet(s) PO BID 03/17/20 18 03/16/2018 Inactive Vitamin D 50,000 unit Cap RxNorm: 9268339 Capsule(s) PO 2 weekly 06/05/2010 Inactive Synthroid 175 mcg Tab RxNorm: 864690 1 Tablet(s) PO QD 07/12/2011 Inactive triamcinolone acetonide 0.1 % Ointment RxNorm: 4710655 T OP TID apply three times a day (sparingly) as needed for itching 04/04/2017 04/03/2017 Inactive Ultram 50 mg Tab RxNorm: 888827 1-2 Tablet(s) PO QID prn pain 03/2203/22/2011 Inactive Topamax 100 mg Tab RxNorm: 504146 1 Tablet(s) PO BID 10/04/200910/03 Inactive Vitamin D3 1000 units Capsule RxNorm: 3 Capsule(s) PO QD 0 06/05/2010 Inactive Singulair 10 mg tablet RxNorm: 522194 1 Tablet(s) PO QD 06/23/2018 Inactive Medication [...] Code Result Date S ervice Location SARS-CoV2 2811152 SARS-CoV2 PCR Detected 07/08/2021 [facility] GFR CALC 8096776 GFR Non Afr Amr >60 mL/min 01/26/2019 Un known GFR CALC 9023578 GFR Afr Amr >60 mL/min 01/26/2019 Unknow n COMPLETE BLOOD COUNT [id number] WBC 7.0 10e9/L 01/27/20 19 Unknown COMPLETE BLOOD COUNT 5526160 RBC 4.52 10e12/L 2018 Unknown COMPLETE BLOOD COUNT 0633421 HEMOGLOBIN 14.0 g/dL 01/27/20 19 Unknown COMPLETE BLOOD COUNT 2057197 HEMATOCRIT 42.6 % 01/27/20 19 Unknown COMPLETE BLOOD COUNT 3275082 MCV 94.2 fL 9 Unknown COMPLETE BLOOD COUNT 6850354 MCH 31.0 pg 9 Unknown COMPLETE BLOOD COUNT 3048602 MCHC 32.9 g/dL 9 Unknown COMPLETE BLOOD COUNT 2579999 PLATELET COUNT 272 10e9/L 10/2018 Unknown COMPLETE BLOOD COUNT 6587140 Mean Plt Volume 10.4 fL 10/2018 Unknown COMPLETE BLOOD COUNT 2906908 Neut Auto 53.9 % 9 Unknown COMPLETE BLOOD COUNT 8798891 Lymph Auto 33.8 % 01/27/20 19 Unknown COMPLETE BLOOD COUNT 8516425 [place] Auto 9.1 % 9 Unknown COMPLETE BLOOD COUNT 5562595 RDW 13.2 % 9 Unknown COMPLETE BLOOD COUNT 5856291 Eos Auto 2.3 % 9 Unknown COMPLETE BLOOD COUNT 4570642 Baso Auto 0.9 % 9 Unknown COMPLETE BLOOD COUNT 1395933 Neutrophil Abs 3.77 10e9/L Unknown COMPLETE BLOOD COUNT 6724031 Lymphocyte Abs 2.37 10e9/L Unknown COMPLETE BLOOD COUNT 7307091 Monocyte Abs 0.64 10e9/L 10/2018 Unknown COMPLETE BLOOD COUNT 7497680 Eosinophil Abs 0.16 10e9/L Unknown COMPLETE BLOOD COUNT 7203389 RDW-SD 44.2 fL 9 Unknown COMPLETE BLOOD COUNT 6343371 Basophil Abs 0.06 10e9/L 10/2018 Unknown COMPREHENSIVE METABOLIC 86415 AST 15 U/L 2018 Unknown COMPREHENSIVE METABOLIC 29861 ALT 18 U/L 2018 Unknown COMPREHENSIVE METABOLIC 35972 BUN 10 mg/dL 2018 Unknown COMPREHENSIVE METABOLIC 74929 ALBUMIN 4.1 g/dL 2018 Unknown COMPREHENSIVE METABOLIC 26158 CHLORIDE 100 mmol/L 01/26 Unknown COMPREHENSIVE METABOLIC 27882 Bili Total 0.4 mg/dL 01/26 Unknown COMPREHENSIVE METABOLIC 13935 ALK PHOS 57 U/L 2018 Unknown COMPREHENSIVE METABOLIC 65118 SODIUM 136 mmol/L 01/26 Unknown COMPREHENSIVE METABOLIC 46772 CREATININE 0.71 mg/dL 10/2018 Unknown COMPREHENSIVE METABOLIC 18553 CALCIUM 9.3 mg/dL 2018 Unknown COMPREHENSIVE METABOLIC 91102 POTASSIUM 4.4 mmol/L 01/26 Unknown COMPREHENSIVE METABOLIC 82915 Total Protein 6.7 g/dL Unknown COMPREHENSIVE METABOLIC 04900 Glucose 88 mg/dL 2018 Unknown COMPREHENSIVE METABOLIC 70708 Bicarbonate 27 mmol/L 10/2018 Unknown COMPREHENSIVE METABOLIC 27089 AGAP 9 mmol/L 2018 Unknown Procedures Procedure Codes Date URINALYSIS NONAUTO W/O SCOPE CPT-4: 14340 09/05/2022 RML URINE CULTURE/ COLONY COUNT CPT-4: 53161 09/06/19 23 RML URINE CULTURE/ COLONY COUNT CPT-4: 31970 06/29/19 23 THER/PROPH/DIAG INJ SC/IM CPT-4: 18222 04/18/2022 KETOROLAC TROMETHAMINE INJ CPT-4: J1885 04/18/2022 FLU 64 + VACC AIIV4 NO PRSRV 0.5ML IM CPT-4: 36486 ADMIN INFLUENZA VIRUS VAC CPT-4: G0008 04/05/2022 PPPS, subseq visit CPT-4: G0439 02/06/2022 DEXAMETHASONE SODIUM PHOS CPT-4: J1100 11/09/2021 THER/PROPH/DIAG INJ SC/IM CPT-4: 12914 11/09/2021 TRIAMCINOLONE ACET INJ NOS CPT-4: J3301 11/09/2021 CEFTRIAXONE SODIUM INJECTION CPT-4: J0696 10/30/2021 THER/PROPH/DIAG INJ SC/IM CPT-4: 81001 10/30/2021 INFLUENZA ASSAY W/OPTIC CPT-4: 03900 10/30/2021 THER/PROPH/DIAG INJ SC/IM CPT-4: 07497 09/05/2021 TRIAMCINOLONE ACET INJ NOS CPT-4: J3301 09/05/2021 INFLUENZA ASSAY W/OPTIC CPT-4: 06584 07/04/2021 SARS-CoV2 CPT-4: 2040823 07/04/2021 FLU VACC PRSV FREE INC ANTIG 65 AND OLDER CPT-4: 49665 03/29/2021 FLU VACC PRSV FREE INC ANTIG 65 AND OLDER CPT-4: 71337 03/29/2021 ADMIN INFLUENZA VIRUS VAC CPT-4: G0008 03/29/2021 DRAINAGE OF SKIN ABSCESS CPT-4: 81837 02/08/2021 PPPS, subseq visit CPT-4: G0439 01/03/2021 OCCULT BLOOD FECES CPT-4: 84877 07/13/2020 RML URINE CULTURE/ COLONY COUNT CPT-4: 45627 05/17/20 20 URINALYSIS NONAUTO W/O SCOPE CPT-4: 90258 05/17/2020 CEFTRIAXONE SODIUM INJECTION CPT-4: J0696 03/07/2020 THER/PROPH/DIAG INJ SC/IM CPT-4: 55871 03/07/2020 THER/PROPH/DIAG INJ SC/IM CPT-4: 32098 03/07/2020 METHYLPREDNISOLONE INJECTION CPT-4: J2930 03/07/2020 PPPS, subseq visit CPT-4: G0439 12/21/2019 RML URINE CULTURE/ COLONY COUNT CPT-4: 21116 09/11/19 20 CEFTRIAXONE SODIUM INJECTION CPT-4: J0696 09/08/2019 THER/PROPH/DIAG INJ SC/IM CPT-4: 88338 09/08/2019 THER/PROPH/DIAG INJ SC/IM CPT-4: 36122 09/07/2019 CEFTRIAXONE SODIUM INJECTION CPT-4: J0696 09/07/2019 THER/PROPH/DIAG INJ SC/IM CPT-4: 34581 09/07/2019 URINALYSIS NONAUTO W/O SCOPE CPT-4: 81284 09/02/2019 RML URINE CULTURE/ COLONY COUNT CPT-4: 31956 09/02/19 20 FLU VACC PRSV FREE INC ANTIG 65 AND OLDER CPT-4: 30625 04/15/2019 URINALYSIS NONAUTO W/O SCOPE CPT-4: 19566 04/15/2019 RML URINE CULTURE/ COLONY COUNT CPT-4: 39406 04/15/20 19 ADMIN INFLUENZA VIRUS VAC CPT-4: G0008 04/15/2019 FLU VACC PRSV FREE INC ANTIG 65 AND OLDER CPT-4: 70291 04/15/2019 THER/PROPH/DIAG INJ SC/IM CPT-4: 85846 04/07/2019 TRIAMCINOLONE ACET INJ NOS CPT-4: J3301 04/07/2019 DEXAMETHASONE SODIUM PHOS CPT-4: J1100 04/07/2019 URINALYSIS NONAUTO W/O SCOPE CPT-4: 47795 03/18/2019 RML URINE CULTURE/ COLONY COUNT CPT-4: 59103 03/18/20 19 ROUTINE VENIPUNCTURE CPT-4: 53165 01/26/2019 RML COMPREHEN METABOLIC PANEL CPT-4: 46838 01/26/2019 RML COMPLETE CBC W/AUTO DIFF WBC CPT-4: 11204 019 RML URINE CULTURE/ COLONY COUNT CPT-4: 24354 01/27/20 19 URINALYSIS NONAUTO W/O SCOPE CPT-4: 21116 01/26/2019 THER/PROPH/DIAG INJ SC/IM CPT-4: 57522 01/08/2019 TRIAMCINOLONE ACET INJ NOS CPT-4: J3301 01/08/2019 THER/PROPH/DIAG INJ SC/IM CPT-4: 57596 01/06/2019 METHYLPREDNISOLONE INJECTION CPT-4: J2930 01/06/2019 AIRWAY INHALATION TREATMENT CPT-4: 58806 01/06/2019 RML URINE CULTURE/ COLONY COUNT CPT-4: 43587 01/07/20 19 PPPS, subseq visit CPT-4: G0439 12/11/2018 URINALYSIS NONAUTO W/O SCOPE CPT-4: 58651 12/11/2018 RML URINE CULTURE/ COLONY COUNT CPT-4: 43070 12/12/19 19 CULTURE OTHR SPECIMN AEROBIC CPT-4: 61707 12/11/2018 OCCULT BLOOD FECES CPT-4: 92431 12/11/2018 THER/PROPH/DIAG INJ SC/IM CPT-4: 28145 10/07/2018 TRIAMCINOLONE ACET INJ NOS CPT-4: J3301 10/07/2018 DEXAMETHASONE SODIUM PHOS CPT-4: J1100 10/07/2018 THER/PROPH/DIAG INJ SC/IM CPT-4: 51875 10/16/2017 TRIAMCINOLONE ACET INJ NOS CPT-4: J3301 10/16/2017 THER/PROPH/DIAG INJ SC/IM CPT-4: 35348 10/16/2017 KETOROLAC TROMETHAMINE INJ CPT-4: J1885 10/16/2017 INFLUENZA ASSAY W/OPTIC CPT-4: 76390 07/25/2017 FLU VACC PRSV FREE INC ANTIG 65 AND OLDER CPT-4: 86136 04/04/2017 PNEUMOCOCCAL VACC 23 DANAY IM CPT-4: 62993 04/04/2017 PPPS, subseq visit CPT-4: G0439 04/04/2017 ADMIN INFLUENZA VIRUS VAC CPT-4: G0008 04/04/2017 ADMIN PNEUMOCOCCAL VACCINE CPT-4: G0009 04/04/2017 URINALYSIS NONAUTO W/O SCOPE CPT-4: 57145 06/05/2016 FLU VACC PRSV FREE INC ANTIG 65 AND OLDER CPT-4: 66067 05/01/2016 ADMIN INFLUENZA VIRUS VAC CPT-4: G0008 05/01/2016 URINALYSIS NONAUTO W/O SCOPE CPT-4: 02637 11/08/2015 URINALYSIS NONAUTO W/O SCOPE CPT-4: 37505 03/28/2015 ADMIN INFLUENZA VIRUS VAC CPT-4: G0008 03/28/2015 FLU VACC PRSV FREE INC ANTIG 65 AND OLDER CPT-4: 48708 03/28/2015 PRESCRIP TRANSMIT VIA ERX SY CPT-4: G8553 03/28/2015 PNEUMOCOCCAL VACC 12 DANAY IM CPT-4: 15950 02/08/2015 ADMIN PNEUMOCOCCAL VACCINE CPT-4: G0009 02/08/2015 PRESCRIP TRANSMIT VIA ERX SY CPT-4: G8553 02/08/2015 RML URINE CULTURE/ COLONY COUNT CPT-4: 55915 01/12/20 15 URINALYSIS NONAUTO W/O SCOPE CPT-4: 85599 01/11/2015 PRESCRIP TRANSMIT VIA ERX SY CPT-4: G8553 01/11/2015 PRESCRIP TRANSMIT VIA ERX SY CPT-4: G8553 11/24/2014 URINALYSIS NONAUTO W/O SCOPE CPT-4: 56887 10/27/2014 RML URINE CULTURE/ COLONY COUNT CPT-4: 83106 10/28/19 15 PRESCRIP TRANSMIT VIA ERX SY CPT-4: G8553 10/27/2014 CEFTRIAXONE SODIUM INJECTION CPT-4: J0696 09/23/2014 THER/PROPH/DIAG INJ SC/IM CPT-4: 01993 09/23/2014 URINALYSIS NONAUTO W/O SCOPE CPT-4: 49300 09/23/2014 RML URINE CULTURE/ COLONY COUNT CPT-4: 54832 09/24/19 15 PRESCRIP TRANSMIT VIA ERX SY CPT-4: G8553 09/23/2014 URINALYSIS NONAUTO W/O SCOPE CPT-4: 88301 03/30/2014 RML URINE CULTURE/ COLONY COUNT CPT-4: 31384 03/30/20 14 PRESCRIP TRANSMIT VIA ERX SY CPT-4: G8553 03/30/2014 PRESCRIP TRANSMIT VIA ERX SY CPT-4: G8553 11/24/2013 PRESCRIP TRANSMIT VIA ERX SY CPT-4: G8553 06/29/2013 PRESCRIP TRANSMIT VIA ERX SY CPT-4: G8553 05/26/2013 PRESCRIP TRANSMIT VIA ERX SY CPT-4: G8553 04/23/2013 THER/PROPH/DIAG INJ SC/IM CPT-4: 46897 03/05/2013 KETOROLAC TROMETHAMINE INJ CPT-4: J1885 03/05/2013 PRESCRIP TRANSMIT VIA ERX SY CPT-4: G8553 11/27/2012 PRESCRIP TRANSMIT VIA ERX SY CPT-4: G8553 11/11/2012 PRESCRIP TRANSMIT VIA ERX SY CPT-4: G8553 09/03/2012 PRESCRIP TRANSMIT VIA ERX SY CPT-4: G8553 07/23/2012 PRESCRIP TRANSMIT VIA ERX SY CPT-4: G8553 05/20/2012 PRESCRIP TRANSMIT VIA ERX SY CPT-4: G8553 04/04/2012 DESTRUCT PREMALG LESION (Cryosurgery) CPT-4: 76809 PRESCRIP TRANSMIT VIA ERX SY CPT-4: G8553 01/02/2012 PRESCRIP TRANSMIT VIA ERX SY CPT-4: G8553 09/04/2011 URINALYSIS NONAUTO W/O SCOPE CPT-4: 16479 07/31/2011 PRESCRIP TRANSMIT VIA ERX SY CPT-4: G8553 07/12/2011 PRESCRIP TRANSMIT VIA ERX SY CPT-4: G8553 05/09/2011 THER/PROPH/DIAG INJ SC/IM CPT-4: 27274 05/02/2011 KETOROLAC TROMETHAMINE INJ CPT-4: J1885 05/02/2011 PRESCRIP TRANSMIT VIA ERX SY CPT-4: G8553 04/25/2011 CUR TOBACCO NON-USER CPT-4: G8457 04/04/2011 PRESCRIP TRANSMIT VIA ERX SY CPT-4: G8553 04/04/2011 DRAIN/INJECT JOINT/BURSA CPT-4: 26376 03/01/2011 METHYLPREDNISOLONE 40 MG INJ CPT-4: J1030 03/01/2011 TRIAMCINOLONE ACET INJ NOS CPT-4: J3301 03/01/2011 DRAIN/INJECT JOINT/BURSA CPT-4: 95268 01/04/2011 METHYLPREDNISOLONE 40 MG INJ CPT-4: J1030 01/04/2011 TRIAMCINOLONE ACET INJ NOS CPT-4: J3301 01/04/2011 PRESCRIP TRANSMIT VIA ERX SY CPT-4: G8553 12/07/2010 PRESCRIP TRANSMIT VIA ERX SY CPT-4: G8553 10/09/2010 PRESCRIP TRANSMIT VIA ERX SY CPT-4: G8553 06/06/2010 DRAIN/INJECT JOINT/BURSA CPT-4: 11745 04/12/2010 TRIAMCINOLONE ACET INJ NOS CPT-4: J3301 04/12/2010 METHYLPREDNISOLONE 80 MG INJ CPT-4: J1040 04/12/2010 PRESCRIP TRANSMIT VIA ERX SY CPT-4: G8553 03/20/2010 THER/PROPH/DIAG INJ SC/IM CPT-4: 51822 01/30/2010 KETOROLAC TROMETHAMINE INJ CPT-4: J1885 01/30/2010 PRESCRIP TRANSMIT VIA ERX SY CPT-4: G8553 01/30/2010 DRAIN/INJECT JOINT/BURSA CPT-4: 05022 10/26/2009 TRIAMCINOLONE ACET INJ NOS CPT-4: J3301 10/26/2009 METHYLPREDNISOLONE 80 MG INJ CPT-4: J1040 10/26/2009 DRAINAGE OF SKIN ABSCESS CPT-4: 64542 10/04/2009 Vital Signs Date Vital 09/05/2022 Blood Pressure 1: 124/78 Code: 8480-6 Heart Rate 1: 65 bpm Respiratory Rate: 20 bpm SpO2: 97% Temperature: 36.7 (C) / 98.0 (F) We ight: 224 lbs Code: 71040-6 08/30/2022 Blood Pressure 1: 124/74 Code: 8480-6 Heart Rate 1: 74 bpm Respiratory Rate: 20 bpm SpO2: 96% Temperature: 36.3 (C) / 97.3 (F) We ight: 224 lbs Code: 84949-1 08/07/2022 Blood Pressure 1: 126/74 Code: 8480-6 Heart Rate 1: 73 bpm Respiratory Rate: 20 bpm SpO2: 97% Temperature: 36.2 (C) / 97.1 (F) We ight: 222 lbs Code: 35570-2 06/29/2022 Blood Pressure 1: 132/73 Code: 8480-6 BMI: 36.7 Code: 68348-7 Heart Rate 1: 74 bpm Height: 5'6" Code: 8302-2 SpO2: 96% Temperature: 3 6.4 (C) / 97.6 (F) Weight: 226 lbs Code: 87773-5 05/28/2022 Blood Pressure 1: 129/78 Code: 8480-6 BMI: 37.7 Code: 55686-1 Heart Rate 1: 72 bpm Height: 5'6" Code: 8302-2 SpO2: 95% Temperature: 3 6.2 (C) / 97.1 (F) Weight: 232 lbs Code: 66974-5 05/10/2022 Blood Pressure 1: 133/75 Code: 8480-6 BMI: 38.3 Code: 76374-2 Heart Rate 1: 68 bpm Height: 5'6" Code: 8302-2 SpO2: 98% Temperature: 3 6.2 (C) / 97.1 (F) Weight: 236 lbs Code: 15075-3 04/18/2022 Blood Pressure 1: 118/70 Code: 8480-6 Heart Rate 1: 86 bpm Respiratory Rate: 20 bpm SpO2: 96% Temperature: 36.6 (C) / 97.8 (F) We ight: 238 lbs Code: 46022-4 02/15/2022 Blood Pressure 1: 120/82 Code: 8480-6 Heart Rate 1: 88 bpm Respiratory Rate: 20 bpm SpO2: 98% Temperature: 36.1 (C) / 97.0 (F) We ight: 237 lbs Code: 49038-0 02/06/2022 Blood Pressure 1: 124/80 Code: 8480-6 BMI: 39.4 Code: 45199-9 Heart Rate 1: 76 bpm Height: 5'6" Code: 8302-2 Respiratory Rate: 20 bpm SpO2: 98% Temperature: 36.6 (C) / 97.9 (F) Weight: 242 lbs Code: 56908-6 02/01/2022 Blood Pressure 1: 144/100 Code: 8480-6 Heart Rat e 1: 108 bpm Respiratory Rate: 22 bpm SpO2: 96% Temperature: 36.4 (C) / 97.5 (F) 11/29/2021 Blood Pressure 1: 128/80 Code: 8480-6 Heart Rate 1: 56 bpm Respiratory Rate: 20 bpm SpO2: 97% Temperature: 36.7 (C) / 98.1 (F) We ight: 242 lbs Code: 40287-5 11/22/2021 Blood Pressure 1: 118/80 Code: 8480-6 Heart Rate 1: 84 bpm Respiratory Rate: 20 bpm SpO2: 99% Temperature: 36.3 (C) / 97.4 (F) 11/21/2021 Blood Pressure 1: 132/80 Code: 8480-6 Heart Rate 1: 98 bpm Respiratory Rate: 20 bpm SpO2: 99% Weight: 238 lbs Code: 21146 -7 11/09/2021 Blood Pressure 1: 136/86 Code: 8480-6 Heart Rate 1: 68 bpm Respiratory Rate: 20 bpm SpO2: 95% Temperature: 36.4 (C) / 97.5 (F) We ight: 244 lbs Code: 76780-9 10/31/2021 Blood Pressure 1: 128/80 Code: 8480-6 Heart Rate 1: 80 bpm Respiratory Rate: 28 bpm SpO2: 93% Temperature: 38.0 (C) / 100. 4 (F) 10/30/2021 Blood Pressure 1: 136/82 Code: 8480-6 Heart Rate 1: 120 bpm Respiratory Rate: 24 bpm SpO2: 95% Temperature: 38.0 (C) / 100. 4 (F) 09/05/2021 Blood Pressure 1: 118/84 Code: 8480-6 BMI: 38.5 Code: 56472-3 Heart Rate 1: 72 bpm Height: 5'7" Code: 8302-2 Respiratory Rate: 20 bpm SpO2: 95% Temperature: 36.3 (C) / 97.4 (F) Weight: 246 lbs Code: 78253-4 08/24/2021 Blood Pressure 1: 132/84 Code: 8480-6 Heart Rate 1: 76 bpm Respiratory Rate: 19 bpm SpO2: 98% Temperature: 36.7 (C) / 98.1 (F) We ight: Code: 65048-0 03/01/2021 Blood Pressure 1: 90/52 Code: 8480-6 Heart Rate 1: 66 bpm Respiratory Rate: 22 bpm SpO2: 97% 02/08/2021 Blood Pressure 1: 132/75 Code: 8480-6 Heart Rate 1: 74 bpm Respiratory Rate: 18 bpm SpO2: 98% Temperature: 36.3 (C) / 97.3 (F) We ight: 247 lbs Code: 16756-7 01/19/2021 Blood Pressure 1: 126/76 Code: 8480-6 Heart Rate 1: 76 bpm Respiratory Rate: 20 bpm SpO2: 98% Temperature: 37.1 (C) / 98.8 (F) We ight: 244 lbs Code: 04350-9 01/03/2021 Blood Pressure 1: 124/64 Code: 8480-6 BMI: 38.5 Code: 73487-7 Heart Rate 1: 76 bpm Height: 5'7" Code: 8302-2 Respiratory Rate: 20 bpm SpO2: 96% Temperature: 36.4 (C) / 97.6 (F) Weight: 246 lbs Code: 19621-8 11/29/2020 Blood Pressure 1: 119/68 Code: 8480-6 Heart Rate 1: 73 bpm Respiratory Rate: 20 bpm SpO2: 95% Temperature: 36.1 (C) / 96.9 (F) We ight: 245 lbs Code: 70220-1 09/29/2020 Blood Pressure 1: 136/79 Code: 8480-6 Heart Rate 1: 67 bpm Respiratory Rate: 15 bpm SpO2: 98% Temperature: 36.2 (C) / 97.1 (F) We ight: 237 lbs Code: 02240-1 09/19/2020 Blood Pressure 1: 135/82 Code: 8480-6 Heart Rate 1: 76 bpm Respiratory Rate: 17 bpm SpO2: 96% Temperature: 36.6 (C) / 97.8 (F) We ight: 238 lbs Code: 99077-8 08/10/2020 Blood Pressure 1: 126/82 Code: 8480-6 Heart Rate 1: 60 bpm Respiratory Rate: 20 bpm SpO2: 96% Temperature: 36.3 (C) / 97.3 (F) We ight: 238 lbs Code: 79490-2 08/01/2020 Temperature: 36.6 (C) / 97.8 (F) 07/13/2020 Blood Pressure 1: 132/80 Code: 8480-6 Heart Rate 1: 76 bpm Respiratory Rate: 20 bpm SpO2: 97% Temperature: 36.2 (C) / 97.2 (F) We ight: 228 lbs Code: 47368-2 07/05/2020 Temperature: 35.9 (C) / 96.7 (F) 06/22/2020 Blood Pressure 1: 134/82 Code: 8480-6 Heart Rate 1: 60 bpm Respiratory Rate: 20 bpm SpO2: 96% Temperature: 36.4 (C) / 97.6 (F) We ight: 235 lbs Code: 47986-9 05/17/2020 Blood Pressure 1: 141/72 Code: 8480-6 Heart Rate 1: 78 bpm Respiratory Rate: 16 bpm SpO2: 98% Temperature: 36.3 (C) / 97.3 (F) We ight: 232 lbs Code: 29568-8 03/14/2020 Blood Pressure 1: 126/92 Code: 8480-6 Heart Rate 1: 72 bpm Respiratory Rate: 22 bpm SpO2: 96% Temperature: 36.3 (C) / 97.4 (F) We ight: 225 lbs Code: 85218-3 03/07/2020 Blood Pressure 1: 124/86 Code: 8480-6 Heart Rate 1: 72 bpm Respiratory Rate: 24 bpm SpO2: 93% Temperature: 36.2 (C) / 97.1 (F) We ight: 227 lbs Code: 72107-8 12/21/2019 Blood Pressure 1: 114/72 Code: 8480-6 BMI: 36.2 Code: 70949-5 Heart Rate 1: 60 bpm Height: 5'7" Code: 8302-2 Respiratory Rate: 20 bpm SpO2: 97% Temperature: 36.7 (C) / 98.1 (F) Weight: 231 lbs Code: 46301-8 09/02/2019 Blood Pressure 1: 138/85 Code: 8480-6 Heart Rate 1: 76 bpm Respiratory Rate: 20 bpm SpO2: 96% Temperature: 36.3 (C) / 97.3 (F) We ight: 226 lbs Code: 35351-5 07/09/2019 Blood Pressure 1: 123/63 Code: 8480-6 BMI: 34.9 Code: 48192-2 Heart Rate 1: 64 bpm Height: 5'7" Code: 8302-2 Respiratory Rate: 17 bpm SpO2: 97% Temperature: 37.0 (C) / 98.6 (F) Weight: 223 lbs Code: 97550-2 04/15/2019 Blood Pressure 1: 110/82 Code: 8480-6 Heart Rate 1: 66 bpm SpO2: 98% Temperature: 36.1 (C) / 96.9 (F) Weight: 223 lbs Code: 80661-1 04/07/2019 Blood Pressure 1: 132/80 Code: 8480-6 Heart Rate 1: 68 bpm Temperature: 36.9 (C) / 98.4 (F) Weight: 222 lbs Code: 12216-9 03/25/2019 Blood Pressure 1: 108/70 Code: 8480-6 Heart Rate 1: 64 bpm Respiratory Rate: 20 bpm SpO2: 96% Temperature: 36.2 (C) / 97.2 (F) We ight: 221 lbs Code: 25781-7 03/18/2019 Blood Pressure 1: 138/82 Code: 8480-6 Heart Rate 1: 74 bpm SpO2: 99% Temperature: 36.1 (C) / 96.9 (F) Weight: 223 lbs Code: 35730-3 01/26/2019 Blood Pressure 1: 138/90 Code: 8480-6 Heart Rate 1: 68 bpm SpO2: 96% Temperature: 35.9 (C) / 96.7 (F) Weight: 227 lbs Code: 54611-9 01/08/2019 Blood Pressure 1: 134/78 Code: 8480-6 BMI: 36.8 Code: 64945-4 Heart Rate 1: 76 bpm Height: 5'7" Code: 8302-2 SpO2: 93% Temperature: 3 6.4 (C) / 97.6 (F) Weight: 235 lbs Code: 23092-8 01/06/2019 Blood Pressure 1: 116/80 Code: 8480-6 Heart Rate 1: 72 bpm Respiratory Rate: 20 bpm SpO2: 98% Temperature: 36.5 (C) / 97.7 (F) We ight: 232 lbs Code: 83411-2 12/11/2018 Blood Pressure 1: 120/82 Code: 8480-6 BMI: 36.2 Code: 71589-1 Heart Rate 1: 67 bpm Height: 5'7" Code: 8302-2 Respiratory Rate: 18 bpm SpO2: 96% Temperature: 35.9 (C) / 96.7 (F) Weight: 231 lbs Code: 72083-4 10/30/2018 Blood Pressure 1: 126/82 Code: 8480-6 Heart Rate 1: 80 bpm Respiratory Rate: 20 bpm SpO2: 96% Temperature: 36.8 (C) / 98.3 (F) We ight: 228 lbs Code: 99684-0 10/07/2018 Blood Pressure 1: 130/90 Code: 8480-6 Heart Rate 1: 76 bpm Respiratory Rate: 24 bpm SpO2: 97% Temperature: 36.0 (C) / 96.8 (F) We ight: 229 lbs Code: 36786-2 06/23/2018 Blood Pressure 1: 132/80 Code: 8480-6 Heart Rate 1: 72 bpm Respiratory Rate: 20 bpm SpO2: 98% Temperature: 36.7 (C) / 98.0 (F) We ight: 233 lbs Code: 84559-2 01/16/2018 Blood Pressure 1: 116/82 Code: 8480-6 Heart Rate 1: 72 bpm Respiratory Rate: 20 bpm SpO2: 96% Temperature: 36.9 (C) / 98.5 (F) We ight: 230 lbs Code: 57479-7 10/16/2017 Blood Pressure 1: 116/74 Code: 8480-6 BMI: 35.1 Code: 79901-6 Heart Rate 1: 76 bpm Height: 5'7" Code: 8302-2 Respiratory Rate: 20 bpm SpO2: 98% Temperature: 36.7 (C) / 98.1 (F) Weight: 224 lbs Code: 68389-5 09/12/2017 Blood Pressure 1: 124/78 Code: 8480-6 BMI: 34.6 Code: 98443-1 Heart Rate 1: 84 bpm Height: 5'7" Code: 8302-2 Respiratory Rate: 20 bpm SpO2: 95% Temperature: 36.6 (C) / 97.8 (F) Weight: 221 lbs Code: 76686-0 08/20/2017 Blood Pressure 1: 126/78 Code: 8480-6 Heart Rate 1: 92 bpm Height: 5'7" Code: 8302-2 Respiratory Rate: 20 bpm SpO2: 96% Temperature: 36 .9 (C) / 98.5 (F) 08/13/2017 Blood Pressure 1: 124/80 Code: 8480-6 BMI: 34.8 Code: 05488-8 Heart Rate 1: 80 bpm Height: 5'7" Code: 8302-2 Respiratory Rate: 20 bpm SpO2: 96% Temperature: 36.7 (C) / 98.0 (F) Weight: 222 lbs Code: 33947-8 07/29/2017 Blood Pressure 1: 114/70 Code: 8480-6 BMI: 34.5 Code: 14975-1 Heart Rate 1: 76 bpm Height: 5'7" Code: 8302-2 Respiratory Rate: 20 bpm SpO2: 97% Temperature: 36.9 (C) / 98.4 (F) Weight: 220 lbs Code: 29064-1 07/25/2017 Blood Pressure 1: 142/76 Code: 8480-6 BMI: 34.9 Code: 39908-7 Heart Rate 1: 92 bpm Height: 5'7" Code: 8302-2 Respiratory Rate: 18 bpm SpO2: 96% Temperature: 36.7 (C) / 98.1 (F) Weight: 223 lbs Code: 13532-2 06/10/2017 Blood Pressure 1: 136/82 Code: 8480-6 BMI: 34.3 Code: 67392-8 Heart Rate 1: 68 bpm Height: 5'7" Code: 8302-2 Respiratory Rate: 20 bpm SpO2: 96% Temperature: 36.7 (C) / 98.0 (F) Weight: 219 lbs Code: 57330-7 05/28/2017 Blood Pressure 1: 136/70 Code: 8480-6 BMI: 34.1 Code: 51192-1 Heart Rate 1: 84 bpm Height: 5'7" Code: 8302-2 Respiratory Rate: 20 bpm SpO2: 95% Temperature: 35.9 (C) / 96.6 (F) Weight: 218 lbs Code: 68973-7 04/04/2017 Blood Pressure 1: 122/78 Code: 8480-6 BMI: 33.4 Code: 62055-2 Heart Rate 1: 68 bpm Height: 5'7" Code: 8302-2 Respiratory Rate: 20 bpm SpO2: 96% Temperature: 36.7 (C) / 98.0 (F) Weight: 213 lbs Code: 33126-1 11/28/2016 Blood Pressure 1: 114/82 Code: 8480-6 BMI: 33.7 Code: 05154-7 Heart Rate 1: 72 bpm Height: 5'7" Code: 8302-2 Respiratory Rate: 20 bpm SpO2: 98% Temperature: 36.4 (C) / 97.6 (F) Weight: 215 lbs Code: 53747-2 06/05/2016 Blood Pressure 1: 104/68 Code: 8480-6 BMI: 33.7 Code: 76685-0 Heart Rate 1: 68 bpm Height: 5'7" Code: 8302-2 Respiratory Rate: 20 bpm SpO2: 96% Temperature: 36.8 (C) / 98.2 (F) Weight: 215 lbs Code: 32553-2 11/08/2015 Blood Pressure 1: 122/70 Code: 8480-6 BMI: 33.8 Code: 38334-4 Heart Rate 1: 80 bpm Height: 5'7" Code: 8302-2 Respiratory Rate: 20 bpm Temperatu re: 36.8 (C) / 98.2 (F) Weight: 216 lbs Code: 97443-9 07/19/2015 Blood Pressure 1: 122/70 Code: 8480-6 BMI: 33.0 Code: 45685-0 Heart Rate 1: 80 bpm Height: 5'7" Code: 8302-2 Respiratory Rate: 18 bpm Temperatu re: 35.9 (C) / 96.6 (F) Weight: 211 lbs Code: 67159-7 03/28/2015 Blood Pressure 1: 124/70 Code: 8480-6 BMI: 31.8 Code: 41187-9 Heart Rate 1: 72 bpm Height: 5'7" Code: 8302-2 Respiratory Rate: 20 bpm Temperatu re: 36.8 (C) / 98.2 (F) Weight: 203 lbs Code: 00450-1 02/08/2015 Blood Pressure 1: 98/58 Code: 8480-6 BMI: 32.1 C ode: 18144-5 Heart Rate 1: 84 bpm Height: 5'7" Code: 8302-2 Respiratory Rate: 20 bpm Temperatu re: 36.7 (C) / 98.0 (F) Weight: 205 lbs Code: 32211-1 01/11/2015 Blood Pressure 1: 118/78 Code: 8480-6 BMI: 32.1 Code: 17392-6 Heart Rate 1: 84 bpm Height: 5'7" Code: 8302-2 Respiratory Rate: 20 bpm Temperatu re: 36.6 (C) / 97.9 (F) Weight: 205 lbs Code: 40797-5 11/24/2014 Blood Pressure 1: 124/80 Code: 8480-6 BMI: 32.0 Code: 85743-9 Heart Rate 1: 76 bpm Height: 5'7" Code: 8302-2 Respiratory Rate: 20 bpm Temperatu re: 36.2 (C) / 97.1 (F) Weight: 204 lbs Code: 91157-2 11/19/2014 Blood Pressure 1: 132/78 Code: 8480-6 BMI: 32.7 Code: 25703-6 Heart Rate 1: 68 bpm Height: 5'7" Code: 8302-2 Respiratory Rate: 20 bpm SpO2: 98% Temperature: 36.7 (C) / 98.0 (F) Weight: 209 lbs Code: 85063-7 10/27/2014 Blood Pressure 1: 118/76 Code: 8480-6 BMI: 32.6 Code: 61328-7 Heart Rate 1: 64 bpm Height: 5'7" Code: 8302-2 Respiratory Rate: 20 bpm Temperatu re: 36.7 (C) / 98.0 (F) Weight: 208 lbs Code: 94035-1 09/23/2014 Blood Pressure 1: 118/68 Code: 8480-6 BMI: 34.3 Code: 02990-9 Heart Rate 1: 78 bpm Height: 5'7" Code: 8302-2 Respiratory Rate: 22 bpm Temperatu re: 36.4 (C) / 97.6 (F) Weight: 219 lbs Code: 10200-3 07/28/2014 Blood Pressure 1: 126/80 Code: 8480-6 BMI: 33.5 Code: 93159-3 Heart Rate 1: 76 bpm Height: 5'7" Code: 8302-2 Respiratory Rate: 20 bpm Temperatu re: 36.4 (C) / 97.6 (F) Weight: 214 lbs Code: 56628-5 03/30/2014 Blood Pressure 1: 128/80 Code: 8480-6 BMI: 35.2 Code: 27225-4 Heart Rate 1: 88 bpm Height: 5'7" Code: 8302-2 Respiratory Rate: 20 bpm Temperatu re: 36.4 (C) / 97.6 (F) Weight: 225 lbs Code: 40991-9 11/24/2013 Blood Pressure 1: 124/82 Code: 8480-6 BMI: 35.6 Code: 73297-5 Heart Rate 1: 80 bpm Height: 5'7" Code: 8302-2 Respiratory Rate: 22 bpm Temperatu re: 36.2 (C) / 97.1 (F) Weight: 227 lbs Code: 25214-1 08/25/2013 Blood Pressure 1: 128/80 Code: 8480-6 BMI: 37.4 Code: 23184-5 Heart Rate 1: 76 bpm Height: 5'7" Code: 8302-2 Respiratory Rate: 20 bpm Temperatu re: 36.6 (C) / 97.9 (F) Weight: 239 lbs Code: 76492-8 06/29/2013 Blood Pressure 1: 106/78 Code: 8480-6 BMI: 38.1 Code: 79085-7 Heart Rate 1: 80 bpm Height: 5'7" Code: 8302-2 Respiratory Rate: 20 bpm Temperatu re: 36.6 (C) / 97.9 (F) Weight: 243 lbs Code: 81262-3 05/26/2013 Blood Pressure 1: 122/80 Code: 8480-6 BMI: 39.3 Code: 93130-0 Heart Rate 1: 80 bpm Height: 5'7" Code: 8302-2 Respiratory Rate: 20 bpm Temperatu re: 36.9 (C) / 98.4 (F) Weight: 251 lbs Code: 00383-4 05/06/2013 Blood Pressure 1: 128/78 Code: 8480-6 BMI: 39.2 Code: 38435-0 Heart Rate 1: 76 bpm Height: 5'7" Code: 8302-2 Respiratory Rate: 22 bpm Temperatu re: 35.8 (C) / 96.4 (F) Weight: 250 lbs Code: 07449-3 04/23/2013 Blood Pressure 1: 132/92 Code: 8480-6 BMI: 39.6 Code: 39759-1 Heart Rate 1: 88 bpm Height: 5'7" Code: 8302-2 Respiratory Rate: 28 bpm SpO2: 97% Temperature: 36.5 (C) / 97.7 (F) Weight: 253 lbs Code: 61920-1 03/31/2013 Blood Pressure 1: 122/80 Code: 8480-6 BMI: 39.0 Code: 01686-2 Heart Rate 1: 84 bpm Height: 5'7" Code: 8302-2 Respiratory Rate: 20 bpm Temperatu re: 36.6 (C) / 97.8 (F) Weight: 249 lbs Code: 42724-3 03/05/2013 Blood Pressure 1: 120/80 Code: 8480-6 BMI: 39.2 Code: 24582-1 Heart Rate 1: 60 bpm Height: 5'7" Code: 8302-2 Respiratory Rate: 22 bpm Temperatu re: 35.9 (C) / 96.6 (F) Weight: 250 lbs Code: 40722-0 02/04/2013 Blood Pressure 1: 124/80 Code: 8480-6 BMI: 38.4 Code: 35735-0 Heart Rate 1: 80 bpm Height: 5'7" Code: 8302-2 Respiratory Rate: 20 bpm Temperatu re: 36.4 (C) / 97.6 (F) Weight: 245 lbs Code: 17675-8 11/27/2012 Blood Pressure 1: 127/83 Code: 8480-6 Te mperature: 36.1 (C) / 96.9 (F) Weight: 243 lbs 2 oz Code: 03653-9 11/11/2012 Blood Pressure 1: 126/82 Code: 8480-6 BMI: 37.4 Code: 79368-4 Heart Rate 1: 80 bpm Height: 5'7" Code: 8302-2 Respiratory Rate: 20 bpm Temperatu re: 36.8 (C) / 98.2 (F) Weight: 239 lbs Code: 03878-4 10/20/2012 Blood Pressure 1: 114/80 Code: 8480-6 BMI: 37.1 Code: 26249-1 Heart Rate 1: 104 bpm Height: 5'7" Code: 8302-2 Respiratory Rate: 20 bpm Temperatu re: 36.9 (C) / 98.4 (F) Weight: 237 lbs Code: 54318-9 09/03/2012 Blood Pressure 1: 118/72 Code: 8480-6 BMI: 37.3 Code: 59204-1 Heart Rate 1: 70 bpm Height: 5'7" Code: 8302-2 Temperature: 35.6 (C) / 96.0 (F) Weight: 238 lbs Code: 10964-1 07/23/2012 Blood Pressure 1: 124/78 Code: 8480-6 BMI: 36.8 Code: 86781-9 Heart Rate 1: 68 bpm Height: 5'7" Code: 8302-2 Temperature: 35.6 (C) / 96.0 (F) Weight: 235 lbs Code: 08332-6 05/20/2012 Blood Pressure 1: 112/70 Code: 8480-6 BMI: 37.1 Code: 15201-9 Heart Rate 1: 76 bpm Height: 5'7" Code: 8302-2 Respiratory Rate: 20 bpm Temperatu re: 36.7 (C) / 98.1 (F) Weight: 237 lbs Code: 11153-8 04/04/2012 Blood Pressure 1: 110/64 Code: 8480-6 BMI: 37.1 Code: 80912-5 Heart Rate 1: 68 bpm Height: 5'7" Code: 8302-2 Temperature: 36.1 (C) / 97.0 (F) Weight: 237 lbs Code: 02278-7 02/20/2012 Blood Pressure 1: 136/78 Code: 8480-6 BMI: 37.1 Code: 06252-2 Heart Rate 1: 72 bpm Height: 5'7" Code: 8302-2 Respiratory Rate: 20 bpm Temperatu re: 36.7 (C) / 98.0 (F) Weight: 237 lbs Code: 92612-2 01/02/2012 Blood Pressure 1: 122/70 Code: 8480-6 BMI: 37.1 Code: 45860-3 Heart Rate 1: 76 bpm Height: 5'7" Code: 8302-2 Respiratory Rate: 20 bpm Temperatu re: 37.0 (C) / 98.6 (F) Weight: 237 lbs Code: 78271-9 09/04/2011 Blood Pressure 1: 120/84 Code: 8480-6 BMI: 35.4 Code: 72444-6 Heart Rate 1: 68 bpm Height: 5'7" Code: 8302-2 Temperature: 30.0 (C) / 86.0 (F) Weight: 226 lbs Code: 40588-4 08/14/2011 Blood Pressure 1: 120/82 Code: 8480-6 BMI: 36.5 Code: 85025-0 Heart Rate 1: 80 bpm Height: 5'7" Code: 8302-2 Temperature: 36.6 (C) / 97.8 (F) Weight: 233 lbs Code: 09697-0 07/31/2011 Blood Pressure 1: 138/86 Code: 8480-6 BMI: 37.0 Code: 77501-8 Heart Rate 1: 94 bpm Height: 5'7" Code: 8302-2 Temperature: 35.4 (C) / 95.7 (F) Weight: 236 lbs Code: 35693-1 07/25/2011 Blood Pressure 1: 128/80 Code: 8480-6 BMI: 37.0 Code: 71578-8 Heart Rate 1: 80 bpm Height: 5'7" Code: 8302-2 Temperature: 35.6 (C) / 96.0 (F) Weight: 236 lbs Code: 81478-8 07/12/2011 Blood Pressure 1: 132/80 Code: 8480-6 BMI: 37.0 Code: 52344-6 Heart Rate 1: 96 bpm Height: 5'7" Code: 8302-2 Respiratory Rate: 20 bpm Temperatu re: 36.3 (C) / 97.3 (F) Weight: 236 lbs Code: 18570-3 05/09/2011 Blood Pressure 1: 106/78 Code: 8480-6 BMI: 36.6 Code: 55684-6 Heart Rate 1: 72 bpm Height: 5'7" Code: 8302-2 Respiratory Rate: 20 bpm Temperatu re: 36.4 (C) / 97.6 (F) Weight: 234 lbs Code: 54789-8 05/02/2011 Blood Pressure 1: 96/72 Code: 8480-6 BMI: 36.6 C ode: 86707-2 Heart Rate 1: 108 bpm Height: 5'7" Code: 8302-2 Respiratory Rate: 24 bpm Temperatu re: 36.7 (C) / 98.0 (F) Weight: 234 lbs Code: 74971-7 04/25/2011 Blood Pressure 1: 120/72 Code: 8480-6 BMI: 36.5 Code: 06925-6 Heart Rate 1: 70 bpm Height: 5'7" Code: 8302-2 Temperature: 36.7 (C) / 98.0 (F) Weight: 233 lbs Code: 50545-8 04/04/2011 Blood Pressure 1: 126/92 Code: 8480-6 BMI: 36.5 Code: 09897-9 Heart Rate 1: 84 bpm Height: 5'7" Code: 8302-2 Respiratory Rate: 20 bpm Temperatu re: 36.2 (C) / 97.2 (F) Weight: 233 lbs Code: 18680-4 03/01/2011 Blood Pressure 1: 132/78 Code: 8480-6 Heart Rate 1: 88 bpm Temperature: 36.8 (C) / 98.2 (F) Weight: 231 lbs Code: 74438-7 01/04/2011 Blood Pressure 1: 122/78 Code: 8480-6 BMI: 37.0 Code: 24926-7 Heart Rate 1: 80 bpm Height: 5'7" Code: 8302-2 Temperature: 37.0 (C) / 98.6 (F) Weight: 236 lbs Code: 58416-4 12/07/2010 Blood Pressure 1: 132/92 Code: 8480-6 Heart Rate 1: 98 bpm Temperature: 36.2 (C) / 97.2 (F) Weight: 237 lbs Code: 42271-7 10/09/2010 Blood Pressure 1: 128/80 Code: 8480-6 Heart Rate 1: 72 bpm Temperature: 36.5 (C) / 97.7 (F) Weight: 244 lbs Code: 48454-3 08/07/2010 Blood Pressure 1: 114/80 Code: 8480-6 Heart Rate 1: 72 bpm Temperature: 36.2 (C) / 97.1 (F) Weight: 245 lbs Code: 16227-0 06/06/2010 Blood Pressure 1: 132/86 Code: 8480-6 Heart Rate 1: 80 bpm Temperature: 36.8 (C) / 98.2 (F) Weight: 242 lbs Code: 88140-0 04/12/2010 Blood Pressure 1: 126/82 Code: 8480-6 Heart Rate 1: 72 bpm Temperature: 36.8 (C) / 98.2 (F) Weight: 237 lbs Code: 73610-4 03/20/2010 Blood Pressure 1: 124/78 Code: 8480-6 Heart Rate 1: 76 bpm Temperature: 36.1 (C) / 97.0 (F) Weight: 239 lbs Code: 88586-9 01/30/2010 Blood Pressure 1: 118/80 Code: 8480-6 Heart Rate 1: 84 bpm Temperature: 37.1 (C) / 98.7 (F) Weight: 239 lbs Code: 93087-4 01/09/2010 Blood Pressure 1: 120/72 Code: 8480-6 BMI: 36.8 Code: 01077-1 Heart Rate 1: 80 bpm Height: 5'7" Code: 8302-2 Temperature: 36.1 (C) / 97.0 (F) Weight: 235 lbs Code: 47552-0 11/07/2009 Blood Pressure 1: 140/36 Cod e: 8480-6 10/26/2009 Blood Pressure 1: 126/82 Code: 8480-6 BMI: 36.9 Code: 30151-5 Heart Rate 1: 84 bpm Height: 5'7" Code: 8302-2 Temperature: 36.5 (C) / 97.7 (F) Weight: 234 lbs Code: 38575-2 10/17/2009 Blood Pressure 1: 140/88 Code: 8480-6 BMI: 36.3 Code: 01616-7 Heart Rate 1: 88 bpm Height: 5'7" Code: 8302-2 Temperature: 36.7 (C) / 98.0 (F) Weight: 232 lbs Code: 47753-8 10/04/2009 Blood Pressure 1: 140/90 Code: 8480-6 BMI: 36.3 Code: 27770-9 Heart Rate 1: 84 bpm Height: 5'7" Code: 8302-2 Temperature: 36.4 (C) / 97.6 (F) Weight: 232 lbs Code: 30266-0 09/21/2009 Blood Pressure 1: 136/82 Code: 8480-6 BMI: 36.3 Code: 78923-1 Heart Rate 1: 88 bpm Height: 5'7" Code: 8302-2 Temperature: 35.8 (C) / 96.4 (F) Weight: 232 lbs Code: 88309-9 Functional Status No Functional Status data Reason [...] 09/04/2011 chest congestion 09/04/2011 follow up 08/14/2011 [facility] 08/14/2011 venous thrombosis 08/14/2011 abdominal pain [...] Encounter Performer Location Location Address Codes Date ([id number]) OFFICE/OUTPATIENT VISIT EST Diagnosis: Acute cystitis[ICD10: N30.00] Marlene Kenyonverenice Sanchez JESSICAMARIALUISA [employer] [address] [place] [phone] CPT-4: 88925 09/05/2022 ([id number]) OFFICE/OUTPATIENT VISIT EST Diagnosis: Degeneration of lumbar or lumbosacral intervertebral disc[ICD10: M51.37] Diagnosis: Cervicalgia[ICD10: M54.2] Marlene Kenyonverenice ELAM [employer] [address] [place] [phone] CPT-4: 16895 08/30/2022 ([id number]) OFFICE/OUTPATIENT VISIT EST Diagnosis: Hypothyroidism[ICD10: E03.9] Diagnosis: Essential (primary) hypertension[ICD10: I10] Diagnosis: Mixed hyperlipidemia[ICD10: E78.2] Diagnosis: Stress at home[ICD10: F43.9] Jayna Sanchez JESSICAMARIALUISA [employer] [address] [place] [address] CPT-4: 74704 08/07/2022 ([id number]) OFFICE/OUTPATIENT VISIT EST Diagnosis: Acute cystitis[ICD10: N30.00] Marlene Kenyonverenice Sanchez JESSICAMARIALUISA [employer] [address] [place] [address] CPT-4: 46302 06/29/2022 ([id number]) OFFICE/OUTPATIENT VISIT EST Diagnosis: Depression[ICD10: F32.A] Diagnosis: Hypothyroidism[ICD10: E03.9] Jayna Sanchez JANISAPOLINAR [employer] [address] [place] [address] CPT-4: 29017 05/28/2022 ([id number]) OFFICE/OUTPATIENT VISIT EST Diagnosis: Depression[ICD10: F32.A] Diagnosis: Fatigue[ICD10: R53.83] Diagnosis: Hypothyroidism[ICD10: E03.9] Diagnosis: Hyperglycemia[ICD10: R73.9] Jayna PUCKETT [address] [address] CPT-4: 48432 05/10/2022 ([id number]) OFFICE/OUTPATIENT VISIT EST Diagnosis: Migraine, intractable[ICD10: G43.919] Marlene Kenyonverenice EZEQUIEL BRUCE[address] [address] CPT-4: 50359 04/18/2022 ([id number]) NURSE/OUTPATIENT VISIT EST Diagnosis: FLU VACCINE[ICD10: Z23] Jayna JIANG [address] [address] CPT-4: 58695 04/05/2022 ([id number]) OFFICE/OUTPATIENT VISIT EST Diagnosis: Allergic rhinitis[ICD10: J30.9] Diagnosis: Acute sinusitis[ICD10: J01.90] 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] Jayna VANESSA [address] [address] CPT-4: 66570 02/15/2022 ([id number]) Annual depression screening, 15 minutes Diagnosis: Encounter for general adult medical examination without abnormal findings[ICD10: Z00.00] Diagnosis: Essential (primary) hypertension[ICD10: I10] Diagnosis: Mixed hyperlipidemia[ICD10: E78.2] Diagnosis: Hypothyroidism, unspecified[ICD10: E03.9] Diagnosis: Chronic obstructive pulmonary disease, unspecified[ICD10: J44.9] Jayna [address] [address] CPT-4: G0444 02/06/2022 ([id number]) OFFICE/OUTPATIENT VISIT EST Diagnosis: 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] Diagnosis: Vision changes[ICD10: H53.9] Latasha VANESSA DO [address] [address] CPT-4: 92316 02/01/2022 ([id number]) OFFICE/OUTPATIENT VISIT EST Diagnosis: Diarrhea[ICD10: R19.7] Diagnosis: Cough[ICD10: R05.9] Jayna MORILLOLINE Daniel VANESSA DO [address] [address] CPT-4: 30524 11/30/19 ([id number]) OFFICE/OUTPATIENT VISIT EST Diagnosis: Post-viral cough syndrome[ICD10: R05.8] Diagnosis: Otalgia of both ears[ICD10: H92.03] Diagnosis: Diarrhea[ICD10: R19.7] Jayna GUTIERREZ TracyPaige BIANCA Villalba DO [address] [address] CPT-4: 22574 11/22/2021 ([id number]) OFFICE/OUTPATIENT VISIT EST Diagnosis: Diarrhea of presumed infectious origin[ICD10: R19.7] Diagnosis: Altered taste[ICD10: R43.2] Diagnosis: Chronic bronchitis[ICD10: J42] Diagnosis: History of recent pneumonia[ICD10: Z87.01] Latasha VANESSA DO [address] [address] CPT- 4: 46175 11/21/2021 ([id number]) OFFICE/OUTPATIENT VISIT EST Diagnosis: Serous otitis media[ICD10: H65.90] Diagnosis: Postnasal drip[ICD10: R09.82] Diagnosis: Pneumonia[ICD10: J18.9] Jayna Jessicamarialuisa GUTIERREZ TracyPaige JANIS ER DO [address] [address] CPT-4: 73363 11/09/2021 ([id number]) NO CHARGE Diagnosis: Pneumonia[ICD10: J18.9] Diagnosis: Respiratory distress[ICD10: R06.03] Jayna KENNEY TracyPaige JANISER DO [address] [address] CPT-4: 09139 10/31/2021 ([id number]) OFFICE/OUTPATIENT VISIT EST Diagnosis: Vertigo[ICD10: R42] Diagnosis: Nausea[ICD10: R11.0] Diagnosis: Pneumonia[ICD10: J18.9] Jayna [facility] [address] [place] [address] CPT-4: 61122 10/30/2021 ([id number]) OFFICE/OUTPATIENT VISIT EST Diagnosis: Cervicalgia[ICD10: M54.2] Jayna [facility] [address] [place] [address] CPT-4: 03823 09/05/2021 ([id number]) OFFICE/OUTPATIENT VISIT EST Diagnosis: 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] Diagnosis: Seronegative rheumatoid arthritis[ICD10: M06.00] Latasha Castillomarthahoa VANESSA DO [address] [address] CPT- 4: 87803 08/24/2021 ([id number]) OFFICE/OUTPATIENT VISIT EST Diagnosis: Upper respiratory infection[ICD10: J06.9] Diagnosis: Contact with and (suspected) exposure to other viral communicable diseases[ICD10: Z20.828] Latasha Castillomatthew JAYNA VANESSA DO [address] [address] CPT-4: 25370 07/04/2021 ([id number]) NURSE/OUTPATIENT VISIT EST Diagnosis: FLU VACCINE[ICD10: Z23] Jayna [facility] [address] [place] [address] CPT-4: 57566 03/29/2021 ([id number]) OFFICE/OUTPATIENT VISIT EST Diagnosis: Vasovagal episode[ICD10: R55] Diagnosis: Orthostatic hypotension[ICD10: I95.1] Latasha Castillomatthew EZEQUIEL BRUCEER DO [address] [address] CPT-4: 23396 03/01/2021 ([id number]) OFFICE/OUTPATIENT VISIT EST Diagnosis: Sebaceous cyst of right axilla[ICD10: L72.3] Latasha VANESSA [address] [address] CPT- 4: 34908 02/08/2021 ([id number]) OFFICE/OUTPATIENT VISIT EST Diagnosis: Contact dermatitis[ICD10: L25.9] Jayna MORILLOLINE Daniel VANESSA DO [address] [address] CPT-4: 35245 01/19/2021 ([id number]) OFFICE/OUTPATIENT VISIT EST Diagnosis: Upper respiratory infection[ICD10: J06.9] Diagnosis: COPD exacerbation[ICD10: J44.1] Latasha VANESSA [address] [address] CPT-4: 98778 11/29/2020 ([id number]) OFFICE/OUTPATIENT VISIT EST Diagnosis: Sinusitis[ICD10: J32.9] Diagnosis: Acute pansinusitis, recurrence not specified[ICD10: J01.40] Latasha VANESSA DO [address] [address] CPT-4: 02812 09/29/2020 OFFICE/OUTPATIENT VISIT EST Diagnosis: Other seasonal allergic rhinitis[ICD10: J30.2] Diagnosis: Chronic bronchitis[ICD10: J42] Diagnosis: 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] Diagnosis: Middle ear effusion[ICD10: H65.90] Diagnosis: Fluid level behind tympanic membrane of both ears[ICD10: H65.93] Latasha VANESSA DO [address] [address] CPT-4: 20473 09/19/2020 ([id number]) OFFICE/OUTPATIENT VISIT EST Diagnosis: Right-sided tinnitus[ICD10: H93.11] Jayna KENNEY Daniel VANESSA [address] [address] CPT-4: 43428 08/10/2020 ([id number]) OFFICE/OUTPATIENT VISIT EST Diagnosis: Dysfunction of right eustachian tube[ICD10: H69.81] Diagnosis: Right-sided tinnitus[ICD10: H93.11] [facility] [address] [place] [address] CPT-4: 80182 2020 ([id number]) OFFICE/OUTPATIENT VISIT EST Diagnosis: Pyelonephritis[ICD10: N12] Diagnosis: Anemia[ICD10: D64.9] Diagnosis: Blood in stool[ICD10: K92.1] Jayna VANESSA [address] [address] CPT-4: 36830 07/13/2020 ([id number]) OFFICE/OUTPATIENT VISIT EST Diagnosis: Acute gastroenteritis[ICD10: K52.9] Jayna MORILLOAlecia VANESSA [address] [address] CPT-4: 91450 07/05/2020 ([id number]) OFFICE/OUTPATIENT VISIT EST Diagnosis: Essential hypertension[ICD10: I10] Diagnosis: Hypothyroidism, unspecified[ICD10: E03.9] Diagnosis: Metabolic syndrome[ICD10: E88.81] Diagnosis: Mixed hyperlipidemia[ICD10: E78.2] Diagnosis: 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] Jayna VANESSA [address] [address] CPT- 4: 34852 06/22/2020 ([id number]) OFFICE/OUTPATIENT VISIT EST Diagnosis: Urinary tract infection[ICD10: N39.0] Jayna CLARKCOLETTE VANESSA [address] [address] CPT-4: 72732 05/17/2020 ([id number]) OFFICE/OUTPATIENT VISIT EST Diagnosis: Right pulmonary embolus[ICD10: I26.99] Jayna StonerBUZZ VANESSA [facility] [address] [place] [address] CPT-4: 34494 03/14/2020 ([id number]) OFFICE/OUTPATIENT VISIT EST Diagnosis: COVID-19[ICD10: U07.1] Diagnosis: Pneumonia[ICD10: J18.9] Diagnosis: Dyspnea[ICD10: R06.00] Jayna Oremarialuisa GUTIERREZ TracyPaige BIANCA Villalba DO [facility] [address] [place] [address] CPT-4: 31077 03/07/2020 ([id number]) OFFICE/OUTPATIENT VISIT EST Diagnosis: Upper respiratory infection[ICD10: J06.9] Genesis Fernández Wanda RODRIGUE VANESSA [address] [address] CPT-4: 28245 02/11/2020 ([id number]) OFFICE/OUTPATIENT VISIT EST Diagnosis: Dermatitis[ICD10: L30.9] Diagnosis: Urticaria[ICD10: L50.9] Jayna Vanessa [facility] [address] [place] [address] CPT-4: 48501 09/29/2019 ([id number]) OFFICE/OUTPATIENT VISIT EST Diagnosis: Bone spur of right foot[ICD10: M77.51] Diagnosis: Recurrent UTI[ICD10: N39.0] Diagnosis: MRSA (methicillin resistant staph aureus) culture positive[ICD10: Z22.322] Jayna Vanessa [facility] [address] [place] [address] CPT-4: 30690 09/14/2019 ([id number]) NURSE/OUTPATIENT VISIT EST Diagnosis: Urinary tract infection[ICD10: N39.0] Jayna Jessicamarialuisa GERBER TracyPaige JESSICASHONAAPOLINAR [address] [address] CPT-4: 76261 09/11/2019 ([id number]) NURSE/OUTPATIENT VISIT EST Diagnosis: Urinary tract infection, site not specified[ICD10: N39.0] Jayna GUTIERREZ TracyPaige VANESSA DO [address] [address] CPT-4: 09604 09/08/2019 ([id number]) NURSE/OUTPATIENT VISIT EST Diagnosis: Urinary tract infection, site not specified[ICD10: N39.0] Jayna GREENBERGNDAPOLINAR DO [address] [address] CPT-4: 44030 09/07/2019 ([id number]) OFFICE/OUTPATIENT VISIT EST Diagnosis: Pelvic pain in female[ICD10: R10.2] Diagnosis: Urinary frequency[ICD10: R35.0] Genesis VANESSA DO [address] [address] CPT-4: 13708 09/02/2019 ([id number]) OFFICE/OUTPATIENT VISIT EST Diagnosis: Sinusitis[ICD10: J32.9] Genesis BRUCE ER DO [address] [address] CPT-4: 45818 07/09/2019 ([id number]) OFFICE/OUTPATIENT VISIT EST Diagnosis: UTI (urinary tract infection)[ICD10: N39.0] Diagnosis: FLU VACCINE[ICD10: Z23] Genesis BRUCE ER DO [address] [address] CPT-4: 31019 04/15/2019 ([id number]) OFFICE/OUTPATIENT VISIT EST Diagnosis: Pain in right leg[ICD10: M79.604] Genesis BRUCEER DO [address] [address] CPT-4: 84972 04/07/2019 ([id number]) OFFICE/OUTPATIENT VISIT EST Diagnosis: Diverticulitis of large intestine without perforation or abscess without bleeding[ICD10: K57.32] Diagnosis: Cystitis[ICD10: N30.90] Jayna BRUCE ER DO [address] [address] CPT-4: 14075 03/25/2019 ([id number]) OFFICE/OUTPATIENT VISIT EST Diagnosis: Abdominal pain[ICD10: R10.9] Diagnosis: Cystitis[ICD10: N30.90] Jayna JIANG DO [address] [address] CPT-4: 75171 03/18/2019 ([id number]) OFFICE/OUTPATIENT VISIT EST Diagnosis: Diverticulitis of large intestine without perforation or abscess without bleeding[ICD10: K57.32] Diagnosis: Generalized abdominal pain[ICD10: R10.84] Diagnosis: Urinary tract infection, site not specified[ICD10: N39.0] Genesis VANESSA DO [address] [address] CPT-4: 44410 01/26/2019 ([id number]) OFFICE/OUTPATIENT VISIT EST Diagnosis: Mild intermittent asthma with (acute) exacerbation[ICD10: J45.21] Diagnosis: Allergic rhinitis due to pollen[ICD10: J30.1] Jayna VANESSA DO [address] [address] CPT- 4: 90473 01/08/2019 ([id number]) OFFICE/OUTPATIENT VISIT EST Diagnosis: Mild intermittent asthma with (acute) exacerbation[ICD10: J45.21] Diagnosis: URI, ACUTE[ICD10: J06.9] Diagnosis: Urinary tract infection, site not specified[ICD10: N39.0] Jayna VANESSA DO [address] [address] CPT-4: 18911 01/06/2019 ([id number]) OFFICE/OUTPATIENT VISIT EST Diagnosis: Benign paroxysmal vertigo, bilateral[ICD10: H81.13] Diagnosis: Migraine without aura, not intractable, without status migrainosus[ICD10: G43.009] Jayna VANESSA DO [address] [address] CPT-4: 51601 10/30/2018 ([id number]) OFFICE/OUTPATIENT VISIT EST Diagnosis: Acute bronchitis, unspecified[ICD10: J20.9] Diagnosis: Cough[ICD10: R05] Diagnosis: Other seasonal allergic rhinitis[ICD10: J30.2] Stacey MORILLOLINE Daniel GREENBERGNDER DO [facility] [address] [place] [address] CPT- 4: 57929 10/07/2018 ([id number]) OFFICE/OUTPATIENT VISIT EST Diagnosis: Pain in unspecified joint[ICD10: M25.50] Diagnosis: Pain in right ankle and joints of right foot[ICD10: M25.571] Diagnosis: Other specified disorders of bone density and structure, unspecified site[ICD10: M85.80] Jayna GUTIERREZ Daniel GREENBERGNDER DO [facility] [address] [place] [address] CPT-4: 99589 06/23/2018 ([id number]) OFFICE/OUTPATIENT VISIT EST Diagnosis: Hypothyroidism, unspecified[ICD10: E03.9] Diagnosis: Mixed hyperlipidemia[ICD10: E78.2] Jayna ALVARENGA SPaige GREENBERGNDER DO [facility] [address] [place] [address] CPT-4: 94882 01/16/2018 ([id number]) OFFICE/OUTPATIENT VISIT EST Diagnosis: Cervicalgia[ICD10: M54.2] Genesis Francoisdi JAYNA Daniel GREENBERG NDER DO [facility] [address] [place] [address] CPT-4: 49349 10/16/2017 ([id number]) OFFICE/OUTPATIENT VISIT EST Diagnosis: Headache[ICD10: R51] Diagnosis: Dizziness and giddiness[ICD10: R42] Jayna KENNEY SPaige GREENBERGNDER DO [facility] [address] [place] [address] CPT-4: 43884 09/12/2017 OFFICE/OUTPATIENT VISIT EST Diagnosis: Cough[ICD10: R05] Genesis Fernández JAYNA SPaige GREENBERGNDER DO [facility] [address] [place] [address] CPT-4: 00589 08/20/2017 ([id number]) OFFICE/OUTPATIENT VISIT EST Diagnosis: COUGH[ICD10: R05] Jayna VANESSA DO [address] [address] CPT-4: 95362 08/13/19 ([id number]) OFFICE/OUTPATIENT VISIT EST Diagnosis: Acute bronchospasm[ICD10: J98.01] Jayna VANESSA [address] [address] CPT-4: 12939 07/29/2017 OFFICE/OUTPATIENT VISIT EST Diagnosis: Influenza due to identified novel influenza A virus with other respiratory manifestations[ICD10: J09.X2] Genesis VANESSA DO [address] [address] CPT-4: 08224 07/25/2017 ([id number]) OFFICE/OUTPATIENT VISIT EST Diagnosis: Pain in unspecified joint[ICD10: M25.50] Jayna VANESSA DO [address] [address] CPT- 4: 39352 06/10/2017 OFFICE/OUTPATIENT VISIT EST Diagnosis: Acute bronchitis, unspecified[ICD10: J20.9] Genesis VANESSA DO [address] [address] CPT- 4: 72570 05/28/2017 ([id number]) OFFICE/OUTPATIENT VISIT EST Diagnosis: Hypothyroidism, unspecified[ICD10: E03.9] Diagnosis: Mixed hyperlipidemia[ICD10: E78.2] Diagnosis: Gexqe-6-tdwkuirlaxj 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] Diagnosis: Sebaceous cyst[ICD10: L72.3] Jayna VANESSA DO [address] [address] CPT-4: 83719 11/28/2016 ([id number]) OFFICE/OUTPATIENT VISIT EST Diagnosis: Right upper quadrant pain[ICD10: R10.11] Diagnosis: Epigastric pain[ICD10: R10.13] Jayna VANESSA DO [facility] [address] [place] [address] CPT-4: 31061 06/05/2016 ([id number]) OFFICE/OUTPATIENT VISIT EST Diagnosis: FLU VACCINE[ICD10: Z23] Jayna BRUCE ER DO [address] [address] CPT-4: 32653 05/01/2016 OFFICE/OUTPATIENT VISIT EST Diagnosis: Hypothyroidism, unspecified[ICD10: E03.9] Diagnosis: Type 1 diabetes mellitus without complications[ICD10: E10.9] Diagnosis: Mixed hyperlipidemia[ICD10: E78.2] Diagnosis: Essential (primary) hypertension[ICD10: I10] Diagnosis: Mixed incontinence[ICD10: N39.46] Jayna Jessicamarialuisa IGLESIA Martha VANESSA DO [facility] [address] [place] [address] CPT-4: 89059 11/08/2015 ([id number]) OFFICE/OUTPATIENT VISIT EST Diagnosis: Hypothyroidism, unspecified[ICD10: E03.9] Diagnosis: Other fatigue[ICD10: R53.83] Jayna VANESSA DO [address] [address] CPT-4: 58983 07/19/2015 ([id number]) OFFICE/OUTPATIENT VISIT EST Diagnosis: Hypothyroidism, unspecified[ICD10: E03.9] Diagnosis: Mixed hyperlipidemia[ICD10: E78.2] Diagnosis: Metabolic syndrome[ICD10: E88.81] Diagnosis: Right lower quadrant abdominal tenderness[ICD10: R10.813] Diagnosis: FLU VACCINE[ICD10: Z23] Jayna BRUCE ER DO [facility] [address] [place] [address] CPT-4: 20762 03/28/2015 ([id number]) OFFICE/OUTPATIENT VISIT EST Diagnosis: MALAISE AND FATIGUE[ICD9: 780.79] Diagnosis: DEPRESSIVE DISORDER NEC[ICD9: 311] Diagnosis: HYPOTHYROIDISM[ICD9: 244.9] Diagnosis: PNEUMOCOCCAL VACCINE[ICD10: Z23] Jaynaparam VANESSA [address] [address] CPT-4: 59240 02/08/2015 ([id number]) OFFICE/OUTPATIENT VISIT EST Diagnosis: MALAISE AND FATIGUE[ICD9: 780.79] Diagnosis: DEPRESSIVE DISORDER NEC[ICD9: 311] Diagnosis: HYPOTHYROIDISM[ICD9: 244.9] Diagnosis: ARTHRALGIA-MULTIPLE SITES[ICD9: 719.49] Jayna VANESSA [address] [address] CPT-4: 19774 01/11/2015 ([id number]) OFFICE/OUTPATIENT VISIT EST 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] Diagnosis: - I - HYPOTHYROIDISM[ICD9: 244.9] Diagnosis: COUGH[ICD10: R05] Diagnosis: ALLERGIC RHINITIS[ICD9: 477.9] Diagnosis: Lumbar degenerative disc disease[ICD9: 722.52] Jayna MORILLOLINE TracyPaige ANDIE [address] [address] CPT- 4: 99650 11/24/2014 ([id number]) OFFICE/OUTPATIENT VISIT EST Diagnosis: Allergic reaction[ICD9: 995.3] Galina Leos JAYNA Molina Paige ANDIE [address] [address] CPT-4: 34664 11/19/2014 ([id number]) OFFICE/OUTPATIENT VISIT EST Diagnosis: ALLERGIC RHINITIS[ICD9: 477.9] Diagnosis: WHEEZING[ICD9: 786.07] Diagnosis: URINARY TRACT INFECTION[ICD9: 599.0] Diagnosis: Right flank pain[ICD9: 789.09] Conchita VILLARREALQUELINE Tracy Paige ANDIE [address] [address] CPT-4: 44876 10/27/2014 ([id number]) OFFICE/OUTPATIENT VISIT EST Diagnosis: URINARY TRACT INFECTION[ICD9: 599.0] Diagnosis: Flank pain[ICD9: 789.09] Conchita GUTIERREZ Tracy. MOOK EMMA DO [address] [address] CPT-4: 02122 09/23/2014 ([id number]) OFFICE/OUTPATIENT VISIT EST Diagnosis: HYPERTENSION[ICD9: 401.9] Diagnosis: - I - HYPOTHYROIDISM[ICD9: 244.9] Diagnosis: HYPERLIPIDEMIA NEC/NOS[ICD9: 272.4] Diagnosis: DYSMETABOLIC SYNDROME X[ICD9: 277.7] Jayna QUEZADA SPaige ORENDER DO [address] [address] CPT-4: 27769 07/28/2014 OFFICE/OUTPATIENT VISIT EST Diagnosis: HYPERTENSION[ICD9: 401.9] Diagnosis: GROSS HEMATURIA[ICD9: 599.71] Jayna GUTIERREZ SPaige ORENDER DO [address] [address] CPT-4: 53707 03/30/2014 ([id number]) OFFICE/OUTPATIENT VISIT EST 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] Diagnosis: - I - HYPOTHYROIDISM[ICD9: 244.9] Diagnosis: HYPERLIPIDEMIA NEC/NOS[ICD9: 272.4] Diagnosis: HYPERTENSION[ICD9: 401.9] Jayna GUTIERREZ SPaige ORE NDEDeejay DO [address] [address] CPT-4: 33992 11/24/2013 ([id number]) OFFICE/OUTPATIENT VISIT EST 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] Diagnosis: HYPERLIPIDEMIA NEC/NOS[ICD9: 272.4] Diagnosis: HYPOTHYROIDISM[ICD9: 244.9] Jayna GUTIERREZ SPaige O RENDER DO [address] [address] CPT-4: 29484 08/25/2013 OFFICE/OUTPATIENT VISIT EST Diagnosis: DEPRESSIVE DISORDER NEC[ICD9: 311] Jayna Sanchez ORENDER DO [address] [address] CPT-4: 27254 06/29/2013 OFFICE/OUTPATIENT VISIT EST Diagnosis: DEPRESSIVE DISORDER NEC[ICD9: 311] Jayna VILLARREALOTTO VANESSA [address] [address] CPT-4: 58155 05/26/2013 ([id number]) OFFICE/OUTPATIENT VISIT EST Diagnosis: BRONCHITIS, ACUTE[ICD9: 466.0] Diagnosis: HYPOTHYROIDISM[ICD9: 244.9] Diagnosis: HYPERLIPIDEMIA NEC/NOS[ICD9: 272.4] Diagnosis: Shoulder pain[ICD9: 719.41] Jayna MORILLOLINE Daniel PUCKETT DO [address] [address] CPT-4: 71345 05/06/2013 ([id number]) OFFICE/OUTPATIENT VISIT EST Diagnosis: BRONCHITIS, ACUTE[ICD9: 466.0] Diagnosis: SINUSITIS, ACUTE[ICD9: 461.9] Jayna MORILLOLINE Daniel VANESSA [address] [address] CPT-4: 03907 04/23/2013 ([id number]) OFFICE/OUTPATIENT VISIT EST Diagnosis: DYSPNEA[ICD9: 786.09] Diagnosis: EDEMA[ICD9: 782.3] Diagnosis: CNJEI-5-[id number] DEFICIENCY[ICD9: 273.4] Diagnosis: COUGH[ICD9: 786.2] Jayna MORILLOLINE Daniel VANESSA [address] [address] CPT-4: 53101 03/31/20 OFFICE/OUTPATIENT VISIT EST Diagnosis: Chest pain[ICD9: 786.50] Diagnosis: ANXIETY STATE NOS[ICD9: 300.00] Conchita Liborio JAYNA VANESSA [address] [address] CPT-4: 07262 03/05/2013 ([id number]) OFFICE/OUTPATIENT VISIT EST Diagnosis: HYPERLIPIDEMIA NEC/NOS[ICD9: 272.4] Diagnosis: HYPOTHYROIDISM[ICD9: 244.9] Diagnosis: Dnies-7-czsehuqmxyj deficiency[ICD9: 273.4] Diagnosis: ALLERGIC RHINITIS[ICD9: 477.9] Jayna MORILLOLINE Tracy VANESSA [address] [address] CPT-4: 30943 02/04/2013 ([id number]) OFFICE/OUTPATIENT VISIT EST Diagnosis: COUGH[ICD9: 786.2] Diagnosis: ALLERGIC RHINITIS[ICD9: 477.9] Jayna VANESSA DO [address] [address] CPT-4: 75767 11/27/2012 ([id number]) OFFICE/OUTPATIENT VISIT EST Diagnosis: COUGH[ICD9: 786.2] Diagnosis: DYSPNEA[ICD9: 786.09] Jayna VANESSA DO [address] [address] CPT-4: 69994 11/11/2012 ([id number]) OFFICE/OUTPATIENT VISIT EST Diagnosis: ABDOMINAL PAIN[ICD9: 789.00] Diagnosis: DIARRHEA[ICD9: 787.91] Diagnosis: COUGH[ICD9: 786.2] Jayna VANESSA [address] [address] CPT-4: 68201 10/21/19 OFFICE/OUTPATIENT VISIT EST Diagnosis: COUGH[ICD9: 786.2] Diagnosis: SINUSITIS, ACUTE[ICD9: 461.9] Diagnosis: PHARYNGITIS, ACUTE[ICD9: 462] Jayna VANESSA [address] [address] CPT-4: 20690 09/03/2012 OFFICE/OUTPATIENT VISIT EST Diagnosis: ABDOMINAL PAIN[ICD9: 789.00] Diagnosis: Diarrhea[ICD9: 787.91] Jayna Villalba [address] [address] CPT-4: 70533 07/23/2012 ([id number]) OFFICE/OUTPATIENT VISIT EST Diagnosis: DM 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 TYPE II, UNCONTROLLED[ICD9: 250.02] Diagnosis: HYPERLIPIDEMIA NEC/NOS[ICD9: 272.4] Diagnosis: GERD[ICD9: 530.81] Jayna MORILLOLINE TracyPaige JESSICANDER DO [address] [address] CPT-4: 98086 05/20/20 12 OFFICE/OUTPATIENT VISIT EST Diagnosis: DERMATITIS NOS[ICD9: 692.9] Galinalexie GUTIERREZ TracyPaige Helga ITALO DO [address] [address] CPT-4: 46656 04/04/2012 ([id number]) OFFICE/OUTPATIENT VISIT EST Diagnosis: HYPERLIPIDEMIA NEC/NOS[ICD9: 272.4] Diagnosis: HYPOTHYROIDISM[ICD9: 244.9] Diagnosis: DYSMETABOLIC SYNDROME X[ICD9: 277.7] Jayna Jessicamarialuisa QUEZADA TracyPaige JESSICANDER DO [address] [address] CPT-4: 85007 01/02/2012 OFFICE/OUTPATIENT VISIT EST Diagnosis: COUGH[ICD9: 786.2] Diagnosis: SINUSITIS, ACUTE[ICD9: 461.9] Lizzie VILLARREALQUELINE TracyPaige JESSICANDER DO [address] [address] CPT-4: 49866 09/04/2011 OFFICE/OUTPATIENT VISIT EST Diagnosis: Diverticulitis[ICD9: 562.11] Diagnosis: THROMBOPHLEBITIS[ICD9: 451.9] Jayna Jessicashonaapolinar JAYNA TracyPaige JESSICANDER DO [address] [address] CPT-4: 13538 08/14/2011 OFFICE/OUTPATIENT VISIT EST Diagnosis: COUGH[ICD9: 786.2] Jayna Jessicashonaapolinar JAYNA TracyPaige JESSICANDER DO [address] [address] CPT-4: 26470 07/25/19 OFFICE/OUTPATIENT VISIT EST Diagnosis: HYPOTHYROIDISM[ICD9: 244.9] Diagnosis: HYPERLIPIDEMIA NEC/NOS[ICD9: 272.4] Diagnosis: Total knee replacement status[ICD9: V43.65] Jayna Jessicamarialuisa GUTIERREZ TracyPaige JESSIACNDER DO [address] [address] CPT- 4: 95833 07/12/2011 OFFICE/OUTPATIENT VISIT EST Diagnosis: BRONCHITIS, ACUTE[ICD9: 466.0] Diagnosis: COUGH[ICD9: 786.2] Jayna MORILLOLINE TracyPiage ORENDER DO [address] [address] CPT-4: 01962 05/09/20 11 OFFICE/OUTPATIENT VISIT EST Diagnosis: BRONCHITIS, ACUTE[ICD9: 466.0] Diagnosis: ASTHMA NOS[ICD9: 493.90] Diagnosis: Pleurisy[ICD9: 511.0] Jayna Greenbergshonaapolinar JAYNA TracyPaige [facility] [address] [place] [phone] CPT-4: 09318 05/02/2011 OFFICE/OUTPATIENT VISIT EST Diagnosis: COUGH[ICD9: 786.2] Jayna Vanessa JAYNA TracyPaige ORENDER DO [facility] [address] [place] [phone] CPT-4: 25762 04/25/20 11 OFFICE/OUTPATIENT VISIT EST Diagnosis: COUGH[ICD9: 786.2] Diagnosis: SINUSITIS, ACUTE[ICD9: 461.9] Jayna Jessicamarialuisa GUTIERREZ TracyPaige ORENDER DO [facility] [address] [place] [phone] CPT-4: 96794 04/04/2011 OFFICE/OUTPATIENT VISIT EST Diagnosis: HYPOTHYROIDISM[ICD9: 244.9] Diagnosis: Knee osteoarthritis[ICD9: 715.96] Jayna Thomas TracyPaige ORENDER DO [facility] [address] [place] [phone] CPT-4: 64659 03/01/2011 OFFICE/OUTPATIENT VISIT EST Jayna GUTIERREZ TracyPaige ORE NDER DO [facility] [address] [place] [phone] CPT-4: 67022 01/04/2011 ([id number]) OFFICE/OUTPATIENT VISIT EST Jayna MARIA SPaige [facility] [address] [place] [phone] CPT-4: 41769 12/07/2010 ([id number]) OFFICE/OUTPATIENT VISIT EST Jayna PISANO UELINE S[facility] [address] [place] [phone] CPT-4: 23983 10/09/2010 ([id number]) OFFICE/OUTPATIENT VISIT EST Jayna [facility]IA [facility] [address] [place] [phone] CPT-4: 09334 08/07/2010 ([id number]) OFFICE/OUTPATIENT VISIT, EST Jayna COPELANDLINE S[facility] [address] [place] [phone] CPT-4: 60005 06/06/2010 ([id number]) OFFICE/OUTPATIENT VISIT, EST Jayna [facility] [address] [place] [phone] CPT-4: 07412 03/20/2010 ([id number]) OFFICE/OUTPATIENT VISIT, EST Jayna [facility]ANDLINE [facility] [address] [place] [phone] CPT-4: 57848 01/30/2010 (24281) OFFICE/OUTPATIENT VISIT, EST Jayna [facility] [address] [place] [phone] CPT-4: 15553 01/09/2010 (33230) OFFICE/OUTPATIENT VISIT, EST Jayna [facility] [address] [place] [phone] CPT-4: 92786 10/26/2009 (08736) OFFICE/OUTPATIENT VISIT, EST Lizzie Kelly [facility] [address] [place] [phone] CPT-4: 31480 10/18/19 10 (08750) OFFICE/OUTPATIENT VISIT, EST Jaynaparam [facility] [address] [place] [phone] CPT-4: 90759 10/04/2009 (24613) OFFICE/OUTPATIENT VISIT, EST Jayna VANESSA DO [facility] [address] [place] [address] CPT-4: 80498 09/21/2009 Plan of Care Planned Activity Notes Codes Status Date Visit Diagnosis Plan: Acute cystitis Discussion: Start Macrobid 100mg bid x7 days. Continue to drink plenty of water. Urine sent for culture-- will notify of results. Recommend soft, bland diet for a few days. ICD-9 : 595.0 ICD-10 : N30.00 09/05/2022 Patient Education: Patient Medication Summary Completed [...] 08/30/2022 Appointment: Marlene Staples WPtel: [phone] [phone] US FOLLOW UP 08/30/2022 Patient Education: Patient Medication Summary Completed 08/30/2022 Visit Diagnosis Plan: Discussion: Stable Labs disc ussed 08/07/2022 Visit Diagnosis Plan: Essential (primary) hypertension Discussion: Stable ICD-9 : 401.9 ICD-10 : I10 08/07/2022 Visit Diagnosis Plan: Discussion: Update lipids 08/07/2022 Visit Diagnosis Plan: Stress at home Discussion: With 's health ICD-9 : V61.9 ICD-10 : F43.9 08/07/2022 Appointment: Jayna Vanessa [facility]Ptel[facility] [phone] [phone] [facility] FOLLOW UP 08/07/2022 Visit Diagnosis [...] 06/29/2022 Appointment: Marlene Staples WPtel: [phone] [phone] ACUTE ILLNESS 06/29/2022 Patient Education: ciprofloxacin HCl- OptimizeRX Coupon [id number] Completed 06/29/2022 Visit Diagnosis Plan: Depression Discussion: Increase Wellbutrin XL to 300mg po qAM Fwup 2 mos ICD-9 : 311 ICD-10 : F32.A 05/28/2022 Visit Diagnosis Plan: Hypothyroidism Discussion: Labs discussed Decrease levothyroxine to 150mcg 6 days a week and repeat thyroid lab in 2mos ICD-9 : 244.9 ICD-10 : E03.9 05/28/2022 Appointment: Jayna Vanessa WPtel: [phone] [phone] US FOLLOW UP 05/28/2022 Visit Diagnosis Plan: [...] : R73.9 05/10/2022 Appointment: Jayna Vanessa WPtel: [facility]6 [phone] US FOLLOW UP 05/10/2022 Visit Diagnosis Plan: Migraine, intractable Discussion : Toradol 30mg IM x1 given in clinic. Start Rizatriptan-- discussed on how to use and may repeat x1 dose 2 hours later. Restart propranolol for migraine prevention. Notify clinic if migraine not improving. ICD-9 : 346.91 ICD-10 : G43.919 04/18/2022 Appointment: Marlene Staples WPtel: [phone] [phone] ACUTE ILLNESS 04/18/2022 Patient Education: propranolol- OptimizeRX Coupon [id number] Completed 04/18/2022 Appointment: Jayna Vanessa WPtel: [address] [place], [place] [phone] US INJECTION 04/05/2022 Appointment: Jayna Vanessa WPtel: [address] [place], [place] [phone] US CANCELED 03/21/2022 Visit Diagnosis Plan: Acute [...] : J30.9 02/15/2022 Appointment: Jayna Vanessa WPtel: [address] [place] [address] ACUTE ILLNESS 02/15/2022 Patient Education: prednisone- OptimizeRX Coupon [id number] https://www.[employer].com/samplemd/resources/getResource/61/03w27xs6-r629-1i05-gl Completed 02/15/2022 Visit Diagnosis Plan: Hypothyroidism, unspecified Disc ussion: Stable ICD-9 : 244.9 ICD-10 : E03.9 02/06/2022 Visit Diagnosis Plan: Encounter for [facility] adult medical examination without abnormal findings [...] J44.9 02/06/2022 Appointment: Jayna Vanessa WPtel: [phone] [phone] Annual Well Visit 02/06/2022 Care Plan: Annual depression screening, 15 minutes 02/06/2022 Visit Diagnosis Plan: 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 Patient declines- will get stat CT of the head, cbc, cmp, and ESR and fwup with results [facility] sample given ICD-9 : 346.03 ICD-10 : G43.111 02/01/2022 Appointment: Latasha Anand WPtel: [phone] [phone] ACUTE ILLNESS 02/01/2022 Patient Education: Patient [...] R19.7 11/29/2021 Appointment: Jayna Vanessa WPtel: [phone] [phone] FOLLOW UP 11/29/2021 Visit Diagnosis Plan: Diarrhea Discussion: C Diff nega tive Treat with diflucan and Restora-RX Fwup 1 week ICD-9 : 787.91 ICD-10 : R19.7 11/22/2021 Visit Diagnosis Plan: Post-viral cough syndrome Discus joaquín: Change albuterol to Breztri 2p BID Add singulair 10mg po q HS ICD-9 : 786.2 ICD-10 : R05.8 11/22/2021 Appointment: Jayna Vanessa WPtel: [phone] [phone] ACUTE ILLNESS 11/22/2021 Patient Education: Singulair- OptimizeRX Coupon [id number] https://www.[employer]/samplemd/resources/getResource/61/1p00hlr3-0dsx-2730-0n Completed 11/22/2021 Visit Diagnosis Plan: Diarrhea of presumed infectious origin Discussion: Will check for c-diff due to recent antibiotics and foul smelling diarrhea ICD-9 : 009.3 ICD-10 : R19.7 11/21/2021 Visit Diagnosis Plan: History of recent pneumonia Disc ussion: Check cbc, cmp, ESR, and cxr now ICD-9 : V12.61 ICD-10 : Z87.01 11/21/2021 Appointment: Latasha Anand WPtel: [phone] [phone] ACUTE ILLNESS 11/21/2021 Patient Education: Patient Medication Summary Completed 11/21/2021 Visit Diagnosis Plan: Pneumonia Discussion: Finish all abx and continue albuterol Fwup next week ICD-9 : 486 ICD-10 : J18.9 11/09/2021 Visit Diagnosis Plan: Serous otitis media Discussion: Kenalog 40mg with Dexamethasone 2mg IM now ICD-9 : 381.4 ICD-10 : H65.90 11/09/2021 Appointment: Jayna Vanessa WPtel: [phone] [phone] Hospital Follow Up 11/09/2021 Visit Diagnosis Plan: Pneumonia Discussion: Admit to h ospital ICD-9 : 486 ICD-10 : J18.9 10/31/2021 Appointment: Jayna Vanessa WPtel: [facility]9 [phone] FOLLOW UP 10/31/2021 Visit Diagnosis Plan: Nausea [...] prn 10/30/2021 Appointment: Jayna Vanessa WPtel: [phone] [phone] US ACUTE ILLNESS 10/30/2021 Visit Diagnosis Plan: Cervicalgia Discussion: Had x-ra ys done Kenalog 40mg IM now Baclofen prn Mobic for 1 week Topical muscle rube Moist heat and stretches shown Has PT sessions scheduled next week so will add in therapy for neck ICD-9 : 723.1 ICD-10 : M54.2 09/05/2021 Appointment: Jayna Vanessa WPtel: [phone] [phone] AC[facility] ILLNESS 09/05/2021 Visit Diagnosis Plan: Arthritis [...] 08/24/2021 Appointment: Latasha Anand WPtel: [phone] [phone] ACUTE ILLNESS 08/24/2021 Patient Education: Patient Medication Summary Completed 08/24/2021 Patient Education: prednisone- OptimizeRX Coupon [id number] Completed 08/24/2021 Visit Plan: Supportive care. Rest, [...] 07/04/2021 Appointment: Latasha Anand WPtel: [phone] [phone] US ACUTE ILLNESS 07/04/2021 Patient Education: Patient Medication Summary Completed 07/04/2021 Patient Education: Patient Medication Summary Completed 07/04/2021 Appointment: Latasha Anand WPtel: [phone] [phone] US NO SHOW 07/03/2021 Appointment: Latasha Anand WPtel: [phone] [phone] US patients issue resolved so moved to 's schedule for his hospital fw (km) CANCELED 03/29/2021 Appointment: Jayna Vanessa WPtel: [phone] [phone] US INJECTION 03/29/2021 Visit Diagnosis Plan: Vasovagal episode Discussion: Mo nitored in office. Stable, feeling better- sent to [facility] for 1L NS IV, cbc, and cmp. ICD-9 : 780.2 ICD-10 : R55 03/01/2021 Patient Education: Patient Medication Summary Completed 03/01/2021 Visit Diagnosis Plan: Sebaceous cyst of right axilla D iscussion: Pustule/cyst drained- see note. F/U for concerns. ICD-9 : 706.2 ICD-10 : L72.3 02/08/2021 Appointment: Latasha Anand WPtel: [phone] [phone] ACUTE ILLNESS 02/08/2021 Patient Education: Patient Medication Summary Completed 02/08/2021 Visit Diagnosis Plan: Contact dermatitis Discussion: T opical TAC and prednisone Notify if persists or worsens ICD-9 : 692.9 ICD-10 : L25.9 01/19/2021 Appointment: Jayna Vanessa WPtel: [phone] [phone] ACUTE ILLNESS 01/19/2021 Patient Education: prednisone- OptimizeRX Coupon [id number] Completed 01/19/2021 Patient Education: triamcinolone acetonide- OptimizeRX Coupon [phone] Completed 01/19/2021 Visit Diagnosis Plan: Hypothyroidism, unspecified Disc ussion: Increase levothyroxine to 150mcg po daily and recheck TSH and free T4 in 2mos ICD-9 : 244.9 ICD-10 : E03.9 01/03/2021 Visit Diagnosis Plan: Essential (primary) hypertension Discussion: Stable ICD-9 : 401.9 ICD-10 : I10 01/03/2021 Visit Diagnosis Plan: Encounter for [facility] adult medical examination without abnormal findings Discussion: Mediterranean diet Combinati on of cardio and weight bearing exercise Had Covid vaccines Lab discussed ICD-9 : V70.9 ICD-10 : Z00.00 01/03/2021 Visit Diagnosis Plan: Chronic obstructive pulmonary di sease, unspecified Discussion: Following with pulmonology ICD-9 : 496 ICD-10 : J44.9 01/03/2021 Appointment: Jayna Vanessa WPtel: [phone] [phone] Annual Well Visit 01/03/2021 Patient Education: levothyroxine- OptimizeRX Coupon [phone] [phone] https://www.[employer]/resources/getResource/61/2y556zg1-6wa9-6953-e7 Completed 01/03/2021 Visit Diagnosis Plan: COPD exacerbation Discussion: Sa mple of breztri given. Prednisone 40 mg x 5 days for exacerbation- increased cough, shortness of breath, and phlegm. Promethazine DM cough syrup sent d/t frequent hacking cough that interrupts sleep. F/U for no improvement or any concerns. ICD-9 : 491.21 ICD-10 : J44.1 11/29/2020 Appointment: Latasha Anand WPtel: [phone] [phone] ACUTE ILLNESS 11/29/2020 Patient Education: Patient Medication Summary Completed 11/29/2020 Patient Education: prednisone- OptimizeRX Coupon [id number] Completed 11/29/2020 Patient Education: promethazine-DM- OptimizeRX Coupon [id number] Completed 11/29/2020 Visit Diagnosis Plan: Sinusitis Discussion: Will start doxycycline (pcn allergy). Sinus rinses. Tylenol/nsaids for headache/pain. Return to clinicif not improving/concerns. ICD-9 : 473.9 ICD-10 : J32.9 09/29/2020 Appointment: Latasha Anand WPtel: [phone] [phone] ACUTE ILLNESS 09/29/2020 Patient Education: Patient Medication Summary Completed 09/29/2020 Patient Education: doxycycline hyclate- OptimizeRX Coupon [id number] Completed 09/29/2020 Visit Diagnosis Plan: Other [...] 09/19/2020 Appointment: Latasha Anand WPtel: [phone] ACUTE ILLNESS 09/19/2020 Patient Education: Patient Medication Summary Completed 09/19/2020 Patient Education: ProAir HFA- OptimizeRX Coupon [id number] Completed 09/19/2020 Visit Diagnosis Plan: Right-sided tinnitus [...] H93.11 08/10/2020 Appointment: Jayna Vanessa WPtel: [phone] [place] [phone] FOLLOW UP 08/10/2020 Patient Education: neomycin-polymyxin B-dexameth- Opti mizeRX Coupon [id number] https://www.[employer]/resources/getResource/61/uy610a22-u35j-3o36-yp Completed 08/10/2020 Visit Diagnosis Plan: Dysfunction of right eustachian tube Discussion: Doxy.sc video visit done Increase zyrtec to BID Increase flonase to BID Add prednisone To office at end of week to assess otoscope exam if persists ICD-9 : 381.81 ICD-10 : H69.81 08/01/2020 Appointment: Jayna Vanessa WPtel: [phone] [phone] TELEMEDICINE 08/01/2020 Patient Education: prednisone- OptimizeRX Coupon [id number] https://www.[employer]/samplemd/resources/getResource/61/el6v84d0-8126-2c0a-96 Completed 08/01/2020 Visit Diagnosis Plan: Pyelonephritis Discussion: Hilary daniel all abx Push fluids Check lab and repeat UA in 5 days--CBC, CMP, ESR ICD-9 : 590.80 ICD-10 : N12 07/13/2020 Appointment: Jayna Vanessa WPtel: [phone] [phone] [facility] Follow Up 07/13/2020 Visit Diagnosis Plan: Acute gastroenteritis Discussion : Telephone visit completed Clear liquid diet next 24-48hrs Flagyl to cover for colitis/diverticulitis Vickie sutherlandn Notify or to ER if worsening ICD-9 : 558.9 ICD-10 : K52.9 07/05/2020 Appointment: Jayna Vanessa WPtel: [phone] [phone] TELEMEDICINE 07/05/2020 Patient Education: ondansetron HCl- OptimizeRX Coupon [id number] https://www.[employer]/samplemd/resources/getResource/61/y7t87fu3-5a0i-896m-6b Completed 07/05/2020 Visit Diagnosis Plan: Metabolic syndrome Discussion: U pdate CMP, HBa1c ICD-9 : 277.7 ICD-10 : E88.81 06/22/2020 Visit Diagnosis Plan: Zjvqr-4-caiuegqtkfw deficiency D iscussion: Following with pulmonology ICD-9 [...] : I10 06/22/2020 Appointment: Jayna Vanessa WPtel: [facility]6 [phone] FOLLOW UP 06/22/2020 Visit Diagnosis Plan: Urinary tract infection Discussi on: Macrobid Diflucan Push water Notify if worsens ICD-9 : 599.0 ICD-10 : N39.0 05/17/2020 Appointment: Jayna Vanessa WPtel: [address] [place], [place] [phone] ACUTE ILLNESS 05/17/2020 Patient Education: fluconazole- OptimizeRX Coupon [id number] https://www.[employer]io/[employer]/resources/getResource/61/6c3bb4so-x4o1-1x0m-2p Completed 05/17/2020 Visit Diagnosis Plan: Right pulmonary embolus Discussi on: Continue eliquis at 5mg po BID Has appointments pending with pulmonology and hematology Fwup after visits with both of these specialists ICD-9 : 415.19 ICD-10 : I26.99 03/14/2020 Appointment: Jayna Vanessa WPtel: [address] [place], [place] [phone] LM 03/14/20 on cell -- home phone had busy signal Hospital Follow Up 03/14/2020 Appointment: Jayna Vanessa WPtel: [address] [place], [place] [phone] I schedule patient by mistake ddo Scheduled [...] R06.00 03/07/2020 Appointment: Jayna Vanessa WPtel: [phone] [phone] ACUTE ILLNESS 03/07/2020 Care Plan: CT THORAX W/DYE LOINC : 15097 -6 Pending 03/07/2020 Appointment: Jayna Vanessa TracyPaige WPtel: [phone] [phone] NO SHOW - FORGIVEN 03/02/2020 Visit Diagnosis Plan: Upper respiratory infection Disc ussion: patient's covid test was neg from several weeks ago. proair refilled to take as needed. medrol pack prescribed to cover for allergies since her symptoms began after being in [facility]. however, instructed patient that she needs to be checked again for coronavirus due to severity of her symptoms. patient lives near [place] so informed her to go to [facility] in for testing. call ofice with new or worsening symptoms, otherwise push fluids. ICD-9 : 465.9 ICD-10 : J06.9 02/11/2020 Appointment: Genesis Fernández [address] [place] [address] TELEMEDICINE 02/11/2020 Patient Education: ProAir HFA- OptimizeRX Coupon [id number] Completed 02/11/2020 Patient Education: Medrol (Isaiah)- OptimizeRX Coupon [id number] Completed 02/11/2020 Visit Diagnosis Plan: Hypothyroidism, unspecified [...] I10 12/21/2019 Visit Diagnosis Plan: Encounter for [facility] adult medical examination without abnormal findings Discussion: Mediterranean diet Combinati on of cardio and weight bearing exercise Lab discussed Last colonoscopy 3 years ago ICD-9 : V70.9 ICD-10 : Z00.00 12/21/2019 Appointment: Jayna Vanessa WPtel: [facility]7 [phone] Annual Well Visit 12/21/2019 Care Plan: Referral Order SNOMED-CT : 30 [id number] Pending 12/21/2019 Visit Diagnosis Plan: Dermatitis Discussion: Doxy.me v ideo visit done Cover with Prednisone taper Use Zyrtec 10mg po q AM BID ICD-9 : 692.9 ICD-10 : L30.9 09/29/2019 Appointment: Jayna Vanessa WPtel: [address] [place], [place] [phone] TELEMEDICINE 09/29/2019 Patient Education: prednisone- OptimizeRX Coupon [phone] https://www.[employer]/resources/getResource/61/90r18s28-4o22-7n89-4r Completed 09/29/2019 Visit Diagnosis Plan: Bone spur [...] : N39.0 09/14/2019 Appointment: Jayna Vanessa WPtel: [address] [place], [place] [phone] TELEMEDICINE 09/14/2019 Appointment: Jayna Vanessa WPtel: [address] [place], [place] [phone] LAB 09/11/2019 Appointment: Jayna Vanessa WPtel: [address] [place], [place] [phone] 09/09/2019 1210--per Ally patient was to only have 1 injection, reculture urine on 09/11/19 (km) CANCELED 09/09/2019 Appointment: Jayna Vanessa WPtel: [phone] [place] [phone] US INJECTION 09/08/2019 Appointment: Jayna Vanessa WPtel: [address] [phone] US INJECTION 09/07/2019 Visit Diagnosis Plan: Urinary [...] ICD-10 : R35.0 09/02/2019 Appointment: Genesis Fernández [address] [place] [address] ACUTE ILLNESS 09/02/2019 Visit Diagnosis Plan: Sinusitis Discussion: instructed to start flonase daily and zyrtec daily. if no improvement next week, call clinic and may need further directions. instructed to use saline eye drops as needed to eyes to assist with dryness. ICD-9 : 473.9 ICD-10 : J32.9 07/09/2019 Appointment: Genesis Fernández [address] [place] [address] ACUTE ILLNESS 07/09/2019 Visit Diagnosis Plan: UTI (urinary tract infection) Di scussion: urine culture sent off. will start on macrobid due to symptoms. instructed to push fluids and chemo tomorrow with worsening symptoms. ICD-9 : 599.0 ICD-10 : N39.0 04/15/2019 Appointment: Jayna Vanessa WPtel: [address] [place], [place] [phone] US INJECTION 04/15/2019 Appointment: Genesis Fernández [address] [place] [address] ACUTE ILLNESS 04/15/2019 Visit Diagnosis Plan: Pain in right leg Discussion: ke nalog/dexa given in office. continue with flexeril prn. PT was ordered for patient due to chronic issues. call office with worsening symptoms and may need imaging. ICD-9 : 729.5 ICD-10 : M79.604 04/07/2019 Appointment: Genesis Fernández [address] [place] [address] ACUTE ILLNESS 04/07/2019 Visit Diagnosis Plan: Diverticulitis of large intestine without perforation or abscess without bleeding Discussion: Patient will call when she g ets home and verify which antibiotics she has left--needs at least another week on flagyl and thinks she only took 1 week on that ICD-9 : 562.11 ICD-10 : K57.32 03/25/2019 Appointment: Jayna Vanessa WPtel: [facility] [place] [phone] FOLLOW UP 03/25/2019 Visit Diagnosis Plan: Cystitis Discussion: Bactrim and culture urine ICD-9 : 595.9 ICD-10 : N30.90 03/18/2019 Visit Diagnosis Plan: Abdominal pain Discussion: Cover with flagyl for colitis [place] diet To ER this weekend if worsening Fwup 1 week ICD-9 : 789.00 ICD-10 : R10.9 03/18/2019 Appointment: Jayna Vanessa WPtel: [phone] ACUTE ILLNESS 03/18/2019 Visit Diagnosis Plan: Urinary [...] ICD-10 : R10.84 01/26/2019 Appointment: Genesis Fernández [address] [facility] ACUTE ILLNESS 01/26/2019 Appointment: Jayna Vanessa WPtel: [address] [place], [place] [phone] CANCELED 01/12/2019 Visit Diagnosis Plan: Mild intermittent asthma with (a cute) exacerbation Discussion: Kenalog 40mg IM now Prednisone stating tomorrow Start Doxycycline tonight Continue SVNs with duoneb q4hrs To ER this weekend if worsening Call Saturday on how doing ICD-9 : 466.0 ICD-10 : J45.21 01/08/2019 Appointment: Jayna Vanessa WPtel: [facility]6 [phone] FOLLOW UP 01/08/2019 Patient Education: prednisone- OptimizeRX Coupon [phone] https://www.[employer]/resources/getResource/61/47908536-y5yt-7670-25 Completed 01/08/2019 Visit Diagnosis Plan: Mild intermittent asthma with (a cute) exacerbation Discussion: Solumedrol 125mg IM SVN with duoneb given Continue albuterol q4hrs CXR now Recheck tomorrow ICD-9 : 466.0 ICD-10 : J45.21 01/06/2019 Appointment: Jayna Vanessa WPtel: [address] [place], [place] [phone] ACUTE ILLNESS 01/06/2019 Visit Diagnosis Plan: Encounter for screening for roel gnant neoplasm of colon Discussion: positive for ob. will order ct abd/pelvis due to other findings and discussed with patient that may need to proceed with updated colonoscopy. patient verbalized understanding. ICD-9 : V76.51 ICD-10 : Z12.11 12/11/2018 Visit Diagnosis Plan: Encounter for [facility] adult medical examination with abnormal findings Discussion: [...] ICD-10 : N76.0 12/11/2018 Appointment: Genesis Fernández [address] [place] [address] Annual Well Visit 12/11/2018 Care Plan: RML ASSAY THYROID STIM HORMONE Pending 12/04/2018 Care Plan: RML ASSAY OF FREE THYROXINE Pe nding 12/04/2018 Care Plan: RML A1C HPLC LOINC : 95585-0 Pending 12/04/2018 Care Plan: RML LIPID PANEL LOINC : 12082 -1 Pending 12/04/2018 Care Plan: RML COMPREHEN METABOLIC PANEL LOINC : 89033-7 Pending 12/04/2018 Care Plan: QUEST CBC (INCLUDES DIFF/PLT) LOINC : 78316-6 Pending 12/04/2018 Visit Diagnosis Plan: Benign paroxysmal vertigo, bilat eral Discussion: Meclizine Vestibular Exercises To ER if worsens or develops neurological symptoms or will need CT scan if persists/worsens ICD-9 : 386.11 ICD-10 : H81.13 10/30/2018 Appointment: Jayna Vanessa WPtel: [address] [place], [place] [phone] ACUTE ILLNESS 10/30/2018 Patient Education: VESTIBULAR EXCERCISES Completed 10/30/2018 Patient Education: meclizine- OptimizeRX Coupon [id number] Completed 10/30/2018 Appointment: Jayna Vanessa WPtel: [address] [place], [place] [phone] US canceled due to huband going into [...] J20.9 10/07/2018 Visit Diagnosis Plan: Cough Discussion: Tesjuan antonioon shantelle s- as needed for cough ICD-9 : 786.2 ICD-10 : R05 10/07/2018 Appointment: Stacey Feng [id number] 10/07/2018 Patient Education: doxycycline hyclate- OptimizeRX Cou [facility] [id number] https://www.[employer].com/samplemd/resources/getResource/61/r812ist2-h887-996h-71 Completed 10/07/2018 Care Plan: RML ASSAY OF [...] : M85.80 06/23/2018 Appointment: Jayna Vanessa WPtel: [address] [place], [place] [phone] US FOLLOW UP 06/23/2018 Appointment: Jayna Vanessa WPtel: [facility]7 [phone] US ER Follow UP 01/27/2018 Visit Diagnosis Plan: Hypothyroidism, unspecified Disc ussion: Lab discussed Increase Levothyroxine to 175mcg daily then recheck level in 6 weeks Follow Up: 6 weeks ICD-9 : 244.9 ICD-10 : E03.9 01/16/2018 Visit Diagnosis Plan: Mixed hyperlipidemia Discussion: Defers statin meds ICD-9 : 272.4 ICD-10 : E78.2 01/16/2018 Appointment: Jayna Vanessa WPtel: [address] [place] [address] FOLLOW UP 01/16/2018 Patient Education: Patient Medication Summary Completed 01/16/2018 Patient Education: Patient Medication Summary Completed 01/15/2018 Care Plan: RML COMPREHEN METABOLIC PANEL LOINC : 35229-7 Pending 01/15/2018 Care Plan: RML ASSAY THYROID STIM HORMONE Pending 01/15/2018 Care Plan: RML ASSAY OF FREE THYROXINE Pe nding 01/15/2018 Care Plan: RML LIPID PANEL LOINC : 88218 -1 Pending 01/15/2018 Care Plan: CBC Pending 01/15/2018 Care Plan: RML A1C HPLC LOINC : 51039-6 Pending 01/15/2018 Appointment: Jayna Vanessa WPtel: [address] [place] [address] CANCELED 12/26/2017 Appointment: Jayna Vanessa WPtel: [address] [place] [address] US CANCELED 10/28/2017 Visit Diagnosis Plan: Cervicalgia Discussion: xray ord ered of cervical spine and right shoulder. 40 mg kenalog/15 mg toradol prescribed to assist with pain. medrol dose pack prescribed to start tomorrow. instructed patient that if she d evelops worsening pain or no improvement, call or rtc. ICD-9 : 723.1 ICD-10 : M54.2 10/16/2017 Appointment: Genesis Fernández [address] [place] [address] ACUTE ILLNESS 10/16/2017 Patient Education: Patient Medication Summary Completed 10/16/2017 Care Plan: X-RAY EXAM NECK SPINE 4/5VWS cervical LOINC : 62427-2 Pending 10/16/2017 Visit Diagnosis Plan: Headache Discussion: Stat CT of head Dilated eye exam ICD-9 : 784.0 ICD-10 : R51 09/12/2017 Visit Diagnosis Plan: Dizziness and giddiness Discussi on: Check CBC,TSH, Free T4 now ICD-9 : 780.4 ICD-10 : R42 09/12/2017 Appointment: Jayna Vanessa WPtel: [address] [place], [place] [phone] ACUTE ILLNESS 09/12/2017 Patient Education: Patient Medication Summary Completed 09/12/2017 Care Plan: CT HEAD/BRAIN W/O DYE [facility] : 07471-4 Pending 09/12/2017 Visit Diagnosis Plan: Cough Discussion: discussed cxra y and sputum results with patient and how they are negative for bacteria. patient restarted on her PPI to cover possiblity of GERD causing cough. instructed patient to contact her [facility] tanner in [place] for them to evaluate. rtc with any new or worsening symptoms but continue with inhaler and nebulizer treatments as needed. ICD-9 : 786.2 ICD-10 : R05 08/20/2017 Appointment: Genesis Fernández [address] [place] [address] FOLLOW UP 08/20/2017 Patient Education: Patient Medication Summary Completed 08/20/2017 Visit Diagnosis Plan: COUGH Discussion: Check stat CXR Check Sputum culture ICD-9 : 786.2 ICD-10 : R05 08/13/2017 Appointment: Jayna Vanessa WPtel: [address] [place] [address] ACUTE ILLNESS 08/13/2017 Patient Education: Patient Medication [...] Rest, Fluids... 07/29/2017 Appointment: Jayna Vanessa WPtel: [address] [place], [place] [phone] ACUTE ILLNESS 07/29/2017 Patient Education: Patient Medication [...] ICD-10 : J09.X2 07/25/2017 Appointment: Genesis Fernández [address] [place] [address] ACUTE ILLNESS 07/25/2017 Patient Education: Patient Medication [...] : M25.50 06/10/2017 Appointment: Jayna Vanessa WPtel: [address] [place], [place] [phone] ACUTE ILLNESS 06/10/2017 Patient Education: Patient Medication Summary Completed 06/10/2017 Appointment: Jayna Vanessa WPtel: [address] [place], [place] [phone] Does not need appointment CANCELED 2016 Appointment: Jayna Vanessa WPtel: [address] [place], [place] [phone] US CANCELED 05/30/2017 Visit Diagnosis Plan: Acute bronchitis, unspecified Di scussion: prednisone, zpack and tessalon perles prescribed to assist with symptoms. call or RTC if no improvement. humidifier at night. hydrate well and rest. discussed side effects from prednisone including increased blood sugars and instructed to monitor. ICD-9 : 490 ICD-10 : J20.9 05/28/2017 Appointment: Jolene, Genesis R. [address] [place], [place] [id number] ACUTE ILLNESS 05/28/2017 Patient Education: Patient Medication Summary Completed 05/28/2017 Visit Diagnosis Plan: Type 2 diabetes mellitus without complications Discussion: Continue current meds accuchecks daily ICD-9 : 250.00 ICD-10 : E11.9 04/04/2017 Visit Diagnosis Plan: Encounter for gene [facility] adult medical examination without abnormal findings Discussion: Flu and Pneumovax given Mamm ogram ordered Lab discussed ICD-9 : V70.9 ICD-10 : Z00.00 04/04/2017 Appointment: Jayna Vanessa WPtel: [phone] [phone] Annual Well Visit 04/04/2017 Patient Education: Patient Medication Summary Completed 04/04/2017 Care Plan: MAMMOGRAM SCREENING LOINC : 2 6347-5 Pending 04/04/2017 Patient Education: Patient Medication Summary Completed 03/21/2017 Care Plan: RML COMPREHEN METABOLIC PANEL LOINC : 42325-9 Pending 03/21/2017 Care Plan: RML ASSAY THYROID STIM HORMONE Pending 03/21/2017 Care Plan: RML ASSAY OF FREE THYROXINE Pe nding 03/21/2017 Care Plan: CBC Pending 03/21/2017 Care Plan: RML A1C HPLC LOINC : 85141-1 Pending 03/21/2017 Visit Diagnosis Plan: Mixed hyperlipidemia Discussion: Continue current meds Follow Up: 6 months ICD-9 : 272.4 ICD-10 : E78.2 11/28/2016 Visit Diagnosis Plan: Hypothyroidism, unspecified Disc ussion: Continue current dose ICD-9 : 244.9 ICD-10 : E03.9 11/28/2016 Visit Diagnosis Plan: Yuwtt-[id number] deficiency D iscussion: Continue weekly injections ICD-9 : 273.4 ICD-10 : E88.01 11/28/2016 Visit Diagnosis Plan: Sebaceous cyst Discussion: Emily swann Discussed removal ICD-9 : 706.2 ICD-10 : L72.3 11/28/2016 Appointment: Jayna Vanessa WPtel: [phone] [phone] 6/6 rang and rang on home phone and mobile confirmed~sl FOLLOW UP 11/28/2016 Patient Education: Patient Medication Summary Completed 11/28/2016 Patient Education: Patient Medication Summary Completed 11/20/2016 Referral: Tom Mcrae WPtel: [address] [facility] 440 [id number] Referral Initiated 07/05/2016 Visit Plan: Start with CT abdomen/pelvis Will need EGD and Colonoscopy so will refer to Dr. Pina Obtain most recent lab results 06/05/2016 Appointment: [phone] [phone] [facility] 06/05/2016 Patient Education: Patient Medication Summary Completed 06/05/2016 Care Plan: CT PELVIS W/O DYE LOINC : 361 08-9 Pending 06/05/2016 Care Plan: CT ABDOMEN W/O DYE LOINC : 36 103-0 Pending 06/05/2016 Care Plan: Referral Order SNOMED-CT : [id number] Pending 06/05/2016 Appointment: Jayna Van[facility]Ptel[facility] [phone] [phone] [place] INJECTION 05/01/2016 Patient Education: Patient Medication Summary Completed 05/01/2016 Patient Education: Patient Medication Summary Completed 04/26/2016 Care Plan: RML COMPREHEN METABOLIC PANEL LOINC : 07813-8 Pending 04/26/2016 Care Plan: RML ASSAY THYROID STIM HORMONE Pending 04/26/2016 Care Plan: RML ASSAY OF FREE THYROXINE Pe nding 04/26/2016 Care Plan: RML A1C HPLC LOINC : 87118-6 Pending 04/26/2016 Referral: Aditya Stone WPtel: [address] [id number] Arrival time is 10:00 Am~sl Appointment Confirme d 11/25/2015 Visit Plan: Had fasting lab done this AM Continue PT for right shoulder Continue current meds Referral to Dr. Temo Stone for incontinence 11/08/2015 Appointment: Jayna Vanessa WPtel: [phone] [phone] 11/06 confirmed-sp FOLLOW UP 11/08/2015 Patient Education: Patient Medication Summary Completed 11/08/2015 Appointment: Jayna Vanessa WPtel: [address] [place], [place] [phone] [place] 10/19 rescheduled ~sl RESCHEDULED 10/24/2015 Appointment: Jayna Vanessa WPtel: [address] [place], [place] [phone] [place] 10/10rang and rang ~sl RESCHEDULED 6 Patient Education: Patient Medication Summary Completed 10/12/2015 Care Plan: RML COMPREHEN METABOLIC PANEL LOINC : 13262-2 Pending 10/12/2015 Care Plan: RML ASSAY THYROID STIM HORMONE Pending 10/12/2015 Care Plan: RML ASSAY OF FREE THYROXINE Pe nding 10/12/2015 Care Plan: RML LIPID PANEL LOINC : 33543 -1 Pending 10/12/2015 Care Plan: CBC Pending 10/12/2015 Care Plan: RML A1C HPLC LOINC : 53043-9 Pending 10/12/2015 Care Plan: VITAMIN D TOTAL (25 HYDROXY) P ending 10/12/2015 Appointment: Jayna Vanessa WPtel: [address] [place], [place] [phone] [place] CANCELED 09/22/2015 Visit Plan: Lab discussed Change thyroid med back to brand synthroid and recheck thyroid lab in [place] 07/19/2015 Appointment: Jayna Vanessa WPtel: [phone] [place] 07/18/15 appt confirmed cn FOLLOW UP 07/19 Patient Education: Patient Medication Summary Completed 07/19/2015 Patient Education: Patient Medication Summary Completed 07/12/2015 Visit Plan: Lab discussed Change synthro id to 150mcg all days but M, W, F will change to 175mcg Check Lab and fwup in os Flu shot given 03/28/2015 Appointment: Jayna Vanessal: [phone] 03/25 rang for 1:40 seconds t confirmed cn FOLLOW UP 03/28/2015 Patient Education: Patient Medication Summary Completed 03/28/2015 Patient Education: Patient Medication Summary Completed 03/21/2015 Visit Plan: Continuue fluoxetine at high er dose Increase synthroid to 150mcg as ordered Decrease propranolol to 20mg po BID Check thyroid lab and fwup in 2mos Prevnar 13 given 02/08/2015 Appointment: Jayna Vanessa WPtel: [address] [place], [place] [phone] US FOLLOW UP 02/08/2015 Patient Education: Patient Medication Summary Completed 02/08/2015 Visit Plan: Check CBC, CMP, TSH, Free T4 , uric acid, lactate now Increase fluoxetine to 40mg daily Recheck in 1month Notify if worsening Culture urine 01/11/2015 Appointment: Jayna Vanessa WPtel: [address] [place], [place] [phone] ACUTE ILLNESS 01/11/2015 Patient Education: Patient Medication Summary Completed 01/11/2015 Visit Plan: Lab discussed Accuchecks lucian ly Medrol dose pack Rx for back brace 11/24/2014 Appointment: Jayna Vanessa WPtel: [address] [place], [place] [phone] 11/23 confirmed -mf FOLLOW UP 11/24/2014 Patient Education: Patient Medication Summary Completed 11/24/2014 Appointment: Galina Leos WPtel: [address] [place], [place] [phone] ER Follow UP 11/19/2014 Patient Education: Patient Medication Summary Completed 11/19/2014 Appointment: Cnochita Capone WPtel: [address] [place], [place] [phone] ACUTE ILLNESS 10/27/2014 Patient Education: Patient Medication Summary Completed 10/27/2014 Patient Education: [facility] - Saving AutoInj - 18+ - Dynamic Portal ID Completed 10/27/2014 Appointment: Liborio Conchita Rudd WPtel: [address] [place], [place] [phone] ACUTE ILLNESS 09/23/2014 Patient Education: Patient Medication Summary Completed 09/23/2014 Visit Plan: Lab discussed Continue curre nt meds 07/28/2014 Appointment: Jayna Vanessa WPtel: [address] [place], [place] [phone] 07/27 FOLLOW UP 07/28/2014 Patient Education: Patient Medication Summary Completed 07/28/2014 Patient Education: Patient Medication Summary Completed 07/21/2014 Patient Education: Patient Medication Summary Completed 04/27/2014 Appointment: Jayna Vanessa WPtel: [address] [place], [place] [phone] 03/29 FOLLOW UP 03/30/2014 Patient Education: Patient Medication Summary Completed 03/30/2014 Patient Education: [facility] - Saving AutoInj - 18+ - Dynamic Portal ID Completed 03/30/2014 Visit Plan: Lab discussed DC Vytorin Tri al of Lipitor 80mg q HS Continue Trilipix Check Lipids/CMP/thyroid and HbA1C in 4mos then fwup 11/24/2013 Appointment: Jayna Vanessa WPtel: [address] [place], [place] [phone] FOLLOW UP 11/24/2013 Patient Education: Patient Medication Summary Completed 11/24/2013 Patient Education: [facility] - Saving AutoInj - 18+ - Dynamic Portal ID Completed 11/24/2013 Visit Plan: Lab discussed Daily accuchec ks Cont current meds 08/25/2013 Appointment: Jayna Vanessa WPtel: [address] [place], [place] [phone] 08/24 FOLLOW UP 08/25/2013 Patient Education: Patient Medication Summary Completed 08/25/2013 Appointment: Jayna Vanessa WPtel: [address] [place], [place] [phone] FOLLOW UP 08/05/2013 Visit Plan: Continue Wellbutrin/Fluoxeti ne Fasting lab and fwup in 2mos 06/29/2013 Appointment: Jayna Vanessa WPtel: [address] [place], [place] [phone] 06/26 left [facility] FOLLOW UP 06/29/2013 Patient Education: Patient Medication Summary Completed 06/29/2013 Visit Plan: Increase Wellbutrin to 300mg daily Add fluoxetine 20mg daily 05/26/2013 Appointment: Jayna Vanessa WPtel: [address] [place], [place] [phone] FOLLOW UP 05/26/2013 Patient Education: Patient Medication Summary Completed 05/26/2013 Visit Plan: OK to proceed with planned [facility] Continue current meds Check fasting lab--CBC, CMP, TSH, free T4, HbA1C, Lipids, Vit D at end of this week prior to surgery 05/06/2013 Appointment: Jayna Vanessa WPtel: [address] [place], [place] [phone] FOLLOW UP 05/06/2013 Patient Education: Patient Medication Summary Completed 05/06/2013 Appointment: Jayna Vanessa WPtel: [address] [place], [place] [phone] ACUTE ILLNESS 04/23/2013 Patient Education: Patient Medication Summary Completed 04/23/2013 Patient Education: [facility] - Saving AutoInj - 18+ - Dynamic Portal ID Completed 04/23/2013 Visit Plan: Decrease Lasix to 20mg daily Leave potassium at 20meq daily Check Chem 7 in 1wk 03/31/2013 Appointment: Jayna Vanessa WPtel: [address] [place], [place] [phone] FOLLOW UP 03/31/2013 Patient Education: Patient Medication Summary Completed 03/31/2013 Appointment: Conchita Capone WPtel: [address] [place], [place] [phone] ACUTE ILLNESS 03/05/2013 Patient Education: Patient Medication Summary Completed 03/05/2013 Visit Plan: Lab discussed Continue curre nt meds Pt is going to start allergy injections Go for port placement to continue prolastin infusions 02/04/2013 Appointment: Jayna Vanessa WPtel: [phone] [phone] ACUTE ILLNESS 02/04/2013 Patient Education: Patient Medication Summary Completed 02/04/2013 Visit Plan: 2-D ECHO discussed See Pulmo nology Pt states cough had went away with allergy meds and then has came back Continue allergy meds and add pepcid BID Discussed allergy testing 11/27/2012 Appointment: Jayna Vanessatel: [address] [place], [place] [phone] FOLLOW UP 11/27/2012 Patient Education: Patient Medication Summary Completed 11/27/2012 Visit Plan: PFTS discussed Proceed with 2-D ECHO and pulmonology evaluation Pt was concerned propranolol could be cause but discussed this is likely not culpri HOMERO was DCed in 2009, is on PPI, has seen ENT, will restart allergy meds--may need allergy testing 11/11/2012 Appointment: Jayna Vanessa WPtel: [address] [place], [place] [phone] FOLLOW UP 11/11/2012 Patient Education: Patient Medication Summary Completed 11/11/2012 Visit Plan: Hold metformin Check CMP, Li pids, TSH, Free T4, HbA1C Check PFTs 10/20/2012 Appointment: Jayna Vanessa WPtel: [address] [place], [place] [phone] 10/17 left message FOLLOW UP 10/20/2012 Patient Education: Patient Medication Summary Completed 10/20/2012 Appointment: Jayna Vanessa WPtel: [phone] [phone] 10/13 FOLLOW UP 10/14/2012 Visit Plan: Discussed fluids and rest. W ill monitor for worsening symptoms/fever. Azithromycin, medrol dose pack and refil on cough syrup. Pt. will notify if symptoms worsen or persist. 09/03/2012 Appointment: Lizzie Kelly WPtel: [address] [place], [place] [phone] ACUTE ILLNESS 09/03/2012 Patient Education: Patient Medication Summary Completed 09/03/2012 Visit Plan: discussed that symptoms star edvin around [place] time. Will begin culturelle BID and monitor for fever or worsening symptoms. Fluid intake important. CBC, CMP, sed rate and stool studies. Order written for Mag lab. 07/23/2012 Appointment: Lizzie Kelly WPtel: [address] [place], [place] [phone] ACUTE ILLNESS 07/23/2012 Patient Education: Patient Medication Summary Completed 07/23/2012 Visit Plan: Increase Metformin to 1000mg po BID Accuchecks daily Continue rest of meds at current dose and low-fat, low-sugar diet with increased exercise Check fasting lab in 4mos Restart Nexium 05/20/2012 Appointment: Jayna Vanessa WPtel: [address] [place], [place] [phone] patient had bad night so missed 05/06 appt...left voicemail 05/19 FOLLOW UP 05/20/2012 Patient Education: Patient Medication Summary Completed 05/20/2012 Appointment: Jayna Vanessa WPtel: [address] [place], [place] [phone] patient had bad night so missed 05/06 appt time. cn FOLLOW UP 05/06/2012 Appointment: Galina Leos WPtel: [address] [place], [place] [phone] ACUTE ILLNESS 04/04/2012 Patient Education: Patient Medication Summary Completed 04/04/2012 Visit Plan: Cryotherapy as above 02/20/2012 Appointment: Jayna Vanessa WPtel: [address] [place], [place] [phone] 02/18 OFFICE SURGERY 02/20/2012 Patient Education: Patient Medication Summary Completed 02/20/2012 Visit Plan: Increase Metfromin to 1000mg daily Continue all other current meds 01/02/2012 Appointment: Jayna Vanessa WPtel: [address] [place], [place] [phone] FOLLOW UP 01/02/2012 Patient Education: Patient Medication Summary Completed 01/02/2012 Appointment: Lizzie Kelly WPtel: [address] [place] [address] ACUTE ILLNESS 09/04/2011 Patient Education: Patient Medication Summary Completed 09/04/2011 Visit Plan: Finish Keflex Proceed with c olonoscopy Increase aspirin to 325mg daily for next 2wks Add Vimovo 20/500mg po Daily 08/14/2011 Appointment: Jayna Vanessa WPtel: [address] [place], [place] [address] [facility] Follow Up 08/14/2011 Patient Education: Patient Medication Summary Completed 08/14/2011 Appointment: Lizzie Kelly WPtel: [address] [place] [address] ACUTE ILLNESS 07/31/2011 Patient Education: Patient Medication Summary Completed 07/31/2011 Visit Plan: Doxy and steroids. Codeine/g uiaf cough syrup. Pt. will monitor for worsening symptoms and notify if fever occurs. Encouraged rest and fluids. 07/25/2011 Appointment: Lizzie Kelly WPtel: [address] [place], [place] [phone] ACUTE ILLNESS 07/25/2011 Patient Education: Patient Medication Summary Completed 07/25/2011 Visit Plan: Check full lab in 3mos Radha nue with all current meds Continue PT for knee 07/12/2011 Appointment: Jayna Vanessa WPtel: [address] [place], [place] [phone] FOLLOW UP 07/12/2011 Patient Education: Patient Medication Summary Completed 07/12/2011 Visit Plan: Continue symbicort for 2 mor e weeks 05/09/2011 Appointment: Jayna Vanessa WPtel: [address] [place], [place] [phone] FOLLOW UP 05/09/2011 Patient Education: Patient Medication Summary Completed 05/09/2011 Appointment: Jayna Vanessa WPtel: [address] [place], [place] [phone] ER Follow UP 05/02/2011 Patient Education: Patient Medication Summary Completed 05/02/2011 Visit Plan: Pt. has recently finished ro und of Cefdinir with no improvement. Chest x-ray, CBC, CMP and mycoplasma order given to pt. Pt. will start Doxycycline. 04/25/2011 Appointment: Lizzie Kelly WPtel: [address] [place], [place] [phone] FOLLOW UP 04/25/2011 Patient Education: Patient Medication Summary Completed 04/25/2011 Appointment: Lizzie Kelly WPtel: [address] [place] [address] ACUTE ILLNESS 04/04/2011 Patient Education: Patient Medication Summary Completed 04/04/2011 Appointment: Lizzie Kelly WPtel: [address] [place] [address] ACUTE ILLNESS 04/03/2011 Visit Plan: Decrease Synthroid to 150mcg daily Repeat TSH and Free T4 in 2mos Knee injection as above 03/01/2011 Appointment: Jayna Vanessa WPtel: [address] [place], [place] [phone] 03/01/2011 Patient Education: Patient Medication Summary Completed 03/01/2011 Visit Plan: Increase Synthroid to 175mcg po daily Check TSH, Free T4 in 8wks Injection given to knee as above Continue Pt 01/04/2011 Appointment: Jayna Vanessa WPtel: [address] [place], [place] [phone] FOLLOW UP 01/04/2011 Patient Education: Patient Medication Summary Completed 01/04/2011 Visit Plan: Septra DS, Mupirocin topical . Pt. will observe wound and report worsening symptoms. 12/07/2010 Appointment: Lizzie Kelly WPtel: [address] [place], [place] [phone] ACUTE ILLNESS 12/07/2010 Patient Education: Patient Medication Summary Completed 12/07/2010 Visit Plan: Increase Synthroid to 150mcg po daily Add Metformin Diet and exercise discussed at length again Repeat thyroid US Add Vit D level Will see if polydipsia improves with metformin 10/09/2010 Appointment: Jayna Vanessa WPtel: [address] [place], [place] [phone] FOLLOW UP 10/09/2010 Patient Education: Patient Medication Summary Completed 10/09/2010 Visit Plan: Increase Synthroid to 125mcg daily Decrease Vit D 50,000 u three times a week Discussed HRT Proceed with sleep study Fwup pending sleep study results 08/07/2010 Appointment: Jayna Vanessa WPtel: [address] [place], [place] [phone] FOLLOW UP 08/07/2010 Patient Education: Patient Medication Summary Completed 08/07/2010 Visit Plan: Decrease Synthroid to 100mcg QD Check thyroid lab in 2mos Check estradiol levels in 2mos--discussed HRT Increase Vit D 50,000u to 1 daily M-F 06/06/2010 Appointment: Jayna Vanessa WPtel: [address] [place], [place] [phone] ACUTE ILLNESS 06/06/2010 Patient Education: Patient Medication Summary Completed 06/06/2010 Visit Plan: Injections to knees as above 04/12/2010 Appointment: Jayna Vanessa WPtel: [address] [place], [place] [phone] OFFICE SURGERY 04/12/2010 Patient Education: Patient Medication Summary Completed 04/12/2010 Visit Plan: Decrease Synthroid to 175mcg QD Check lab in 2mos Change daily Vit D to weekly 03/20/2010 Appointment: Jayna Vanessa WPtel: [phone] [phone] [place] ESTABLISHED PATIENT 03/20/2010 Patient Education: Patient Medication Summary Completed 03/20/2010 Appointment: Jayna Vanessa WPtel: [address] [place] [address] [place], [place] [phone] ACUTE ILLNESS 01/30/2010 Patient Education: Patient Medication Summary Completed 01/30/2010 Appointment: Jayna Vanessa WPtel: [address] [place] [address] [place], [place] [phone] ACUTE ILLNESS 01/09/2010 Patient Education: Patient Medication Summary Completed 01/09/2010 Appointment: Jayna Vanessa WPtel: [address] [place], [place] [phone] BP CHECK 11/07/2009 Patient Education: Patient Medication Summary Completed 11/07/2009 Appointment: Jayna Vanessa WPtel: [address] [place], [place] [phone] OFFICE SURGERY 10/26/2009 Patient Education: Patient Medication Summary Completed 10/26/2009 Appointment: Lizzie Kelly WPtel: [address] [place], [place] [phone] OFFICE SURGERY 10/17/2009 Patient Education: Patient Medication [...] up appnt. 10/04/2009 Appointment: Lizzie Kelly WPtel: [address] [place], [place] [phone] ACUTE ILLNESS 10/04/2009 Patient Education: Patient Medication Summary Completed 10/04/2009 Visit Plan: E-scribed refils. Pt. report s that she normally has lab work drawn and orders are given (faxed) to her normal lab facility by Patricia. Pt. states her migraine headaches have abated for now and that she is going to see her migraine doctor in [place] in the near future(Dr Cook) Pt will seek re-eval as necessary for acute issues. 09/21/2009 Appointment: Lizzie Kelly WPtel: [address] [facility] [place] CHECK UP 09/21/2009 Patient Education: Patient Medication Summary Completed 09/21/2009 Appointment: Lizzie Kelly WPtel: [phone] [facility] US CHECK UP 09/20/2009 Appointment: Lizzie Kelly WPtel: [address] [facility] [place] FOLLOW UP 09/19/2009 Referral: Alf Lang WPtel: 1 [facility] [place] Referral Appointment Requested Referral: Singh Pina WPtel: [address] [facility] [place] Referral Appointment Requested Referral: Aditya Stone WPtel: [address] [facility] [address] [place], [place] [id number] [place] Referral Appointment Requested Instructions Comment Date [...] brand synthroid and recheck thyroid lab in [facility] 07/19/2015 . Lab discussed Change synthroid to [...] going to see her migraine doctor in [place] in the near future(Dr Cook) Pt will [...]
--- OUTSIDE RECORDS SUMMARY | 2022-09-10 17:03 | XMS REPORT | CCD ---
Author Author Marcella Vanessa D.O. 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 Name Role Phone Jayna Vanessa D.O., PP Unavailable CCM Unavailable Summary Purpose Interface Exchange Insurance Providers Payer name Policy type / Coverage type Covered alliance party ID Effective Begin Date Effective End Date [employer] Commercial Insurance [id number] Unknown Commercial Insurance [id number] Unknown Family history Side Diagnosis Age At Onset Heart disease Unknown Diabetes Unknown Sister Diagnosis Age At Onset Diabetes Unknown Brother Diagnosis Age At Onset Diabetes Unknown Mother Diagnosis Age At Onset Heart disease Unknown Father Diagnosis Age At Onset Heart disease Unknown Social History Social History Element Codes Description Effective Dates Tobacco history SNOMED CT: 953499499 Never smoker 04/04/2011 Marital status Unknown 09/21/2009 [...] gastroenteritis ICD-10: K52.9 ICD-9: 558.9 07/05/2020 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 11/28/2016 Active [...] ANXIETY STATE NOS ICD-9: 300.00 03/05/2013 Active Npbuh-3-cuwrgrrnsit 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 02/04/2013 A ctive DYSPNEA [...] Fill Instructions Macrobid 100 mg capsule RxNorm: 330982 Take 1 Capsule(s) Oral t wo times a day 09/05/2022 09/11/2022 Active bupropion HCl XL 300 mg 24 hr tablet, extended release RxNor m: 924757 TAKE 1 Tablet BY MOUTH DAILY IN THE MORNING (replaces 150mg DOSE) 08/29/2022 02/24/2023 Active levothyroxine 150 mcg tablet RxNorm: 951130 TAKE ONE TA BLET BY MOUTH EVERY IN THE MORNING 08/29/2022 02/24/2023 Active ciprofloxacin 250 mg tablet RxNorm: 109568 Take 1 Tablet(s) Ora l Q12H 06/29/2022 07/03/2022 Inactive levothyroxine 150 mcg tablet RxNorm: 891769 Take 1 Tablet(s) Or al QAM 06/03/2022 06/03/2022 Inactive Wellbutrin XL 300 mg 24 hr tablet, extended release RxNorm: 431720 Take 1 Tablet(s) Oral QAM replaces 150mg dose 05/28/2022 05/28/2022 Inactive Xyzal 5 mg tablet RxNorm: 440364 Take 1 Tablet(s) Oral QPM 05/10/2010/06/2022 Active Claritin 10 mg tablet RxNorm: 959177 Take 1 Tablet(s) Oral QAM 04/2409/06/2022 Active Flonase Allergy Relief 50 mcg/actuation nasal spray,suspensi on RxNorm: 3140054 Take 1 [place] Nasal two times a day 05/10/2022 06/08/2022 Inactive Wellbutrin XL 150 mg 24 hr tablet, extended release RxNorm: 524175 Take 1 Tablet(s) Oral QAM 05/10/2022 05/27/2022 Inactive sumatriptan 100 mg tablet RxNorm: 929218 1 Tablet(s) Or al after onset of migraine; may repeat after 2 hours if headache returns, not to exceed 200mg in 24hrs replaces rizatriptan 04/19/2022 04/19/2022 Inactive sumatriptan 100 mg tablet RxNorm: 258851 1 Tablet(s) Or al after onset of migraine; may repeat after 2 hours if headache returns, not to exceed 200mg in 24hrs replaces rizatriptan 04/19/2022 04/19/2022 Inactive propranolol 20 mg tablet RxNorm: 498811 TAKE 1 TABLET BY MOUTH TWICE DAILY 04/18/2022 10/14/2022 Active rizatriptan 10 mg disintegrating tablet RxNorm: 239587 Take 1 Tablet(s) Oral on top of tongue, allow to dissolve then swallow once, may repeat every 2 hrs; max 30 mg/24hrs 04/18/2022 04/18/2022 Inactive prednisone 20 mg tablet RxNorm: 704475 Take 1 Tablet(s) Oral tw o times a day 02/15/2022 02/21/2022 Inactive Nurtec ODT 75 mg disintegrating tablet RxNorm: 4771596 T bria 1 Tablet(s) Oral per 24 hours as needed for migraine 02/09/2022 02/09/2022 Inactive Nurtec ODT 75 mg disintegrating tablet RxNorm: 2803111 T bria 1 Tablet(s) Oral per 24 hours as needed for migraine 02/09/2022 02/09/2022 Inactive fluticasone propionate 50 mcg/actuation nasal spray,suspensi on RxNorm: 1684140 SPRAY ONE SPRAY IN EACH NOSTRIL TWICE DAILY NEEDED 02/05/20222021 Inactive levothyroxine 150 mcg tablet RxNorm: 179913 Take 1 Tablet(s) Or al QAM 02/04/2022 02/04/2022 Inactive albuterol sulfate HFA 90 mcg/actuation aerosol inhaler RxNor m: 8934072 Inhale 2 Puff(s) Oral Q4H as needed 01/05/2022 04/04/2022 Inactive pantoprazole 40 mg tablet,delayed release RxNorm: 939745 Take 1 Tablet(s) Oral QD 01/04/2022 07/02/2022 Inactive propranolol 20 mg tablet RxNorm: 724444 TAKE 1 TABLET BY MOUTH TWICE DAILY 01/04/2022 04/17/2022 Inactive levothyroxine 150 mcg tablet RxNorm: 705633 Take 1 Tablet(s) Or al QAM 12/05/2021 12/05/2021 Inactive metronidazole 500 mg tablet RxNorm: 036032 Take 1 Table t(s) Oral two times a day 11/29/2021 12/05/2021 Inactive Singulair 10 mg tablet RxNorm: 835444 Take 1 Tablet(s) Oral QPM 06/202105/09/2022 Inactive Diflucan 100 mg tablet RxNorm: 319326 Take 1 Tablet(s) Oral QD 06/202111/28/2021 Inactive pantoprazole 40 mg tablet,delayed release RxNorm: 654639 Take 1 Tablet(s) Oral QD 11/06/2021 11/06/2021 Inactive fluticasone propionate 50 mcg/actuation nasal spray,suspensi on RxNorm: 2490550 SPRAY ONE SPRAY IN EACH NOSTRIL TWICE DAILY NEEDED 11/03/20212021 Inactive scopolamine 1 mg over 3 days transdermal patch RxNorm: 86767 2 Apply 1 Unit Dose Transdermal Q72H behind ear 10/30/2021 02/05/2022 Inactive albuterol sulfate HFA 90 mcg/actuation aerosol inhaler RxNor m: 3592619 Inhale 2 Puff(s) Oral Q4H as needed 10/05/2021 11/24/2021 Inactive pantoprazole 40 mg tablet,delayed release RxNorm: 078061 Take 1 Tablet(s) Oral QD 10/05/2021 10/05/2021 Inactive meloxicam 7.5 mg tablet RxNorm: 969700 Take 1 Tablet(s) Oral QD for pain 09/05/2021 09/11/2021 Inactive baclofen 10 mg tablet RxNorm: 287958 Take 0.5-1 Tablet( s) Oral three times per week as needed for muscle spasm 09/05/2021 02/05/2022 Inactive prednisone 20 mg tablet RxNorm: 837137 Take 1 Tablet(s) Oral QD 08/202108/28/2021 Inactive pantoprazole 40 mg tablet,delayed release RxNorm: 812489 Take 1 Tablet(s) Oral QD 07/07/2021 09/04/2021 Inactive fluticasone propionate 50 mcg/actuation nasal spray,suspensi on RxNorm: 5593602 Take 1 [place] Nasal two times a day in each nostrilas needed 07/04/2021 10/01/2021 Inactive Decadron 6 mg tablet RxNorm: 038212 Take 1 Tablet(s) Oral QD 202107/08/2021 Inactive albuterol sulfate HFA 90 mcg/actuation aerosol inhaler RxNor m: 9639903 Inhale 2 Puff(s) Oral Q4H as needed 06/08/2021 09/05/2021 Inactive propranolol 20 mg tablet RxNorm: 963771 TAKE 1 TABLET BY MOUTH TWICE DAILY 06/08/2021 06/08/2021 Inactive pantoprazole 40 mg tablet,delayed release RxNorm: 188678 Take 1 Tablet(s) Oral QD 04/09/2021 06/07/2021 Inactive ProAir HFA 90 mcg/actuation aerosol inhaler RxNorm: 325505 2 Puff(s) Inhalation Q4H as needed 03/13/2021 03/13/2021 Inactive citalopram 10 mg tablet RxNorm: 873519 1 Tablet(s) Oral two antonio es a day 03/13/2021 02/05/2022 Inactive levothyroxine 150 mcg tablet RxNorm: 403282 TAKE 1 Tabl et BY MOUTH EVERY MORNING (REPLACES 137 MCG DOSE) 03/09/2021 03/09/2021 Inactive pantoprazole 40 mg tablet,delayed release RxNorm: 872624 Take 1 Tablet(s) Oral QD 02/08/2021 04/08/2021 Inactive triamcinolone acetonide 0.1 % topical cream RxNorm: 6316441 Take Application Topical two times a day to arm rash 01/19/2021 01/19/2021 Inactive prednisone 20 mg tablet RxNorm: 292817 Take 1 Tablet(s) Oral QD 01/23/2021 Inactive levothyroxine 150 mcg tablet RxNorm: 302863 Take 1 Tabl et(s) Oral QAM replaces 137mcg dose 01/03/2021 01/03/2021 Inactive prednisone 20 mg tablet RxNorm: 848199 Take 2 Tablet(s) Oral QD 01/202112/03/2020 Inactive promethazine-DM 6.25 mg-15 mg/5 mL oral syrup RxNorm: 589886 Take 5 Milliliter(s) Oral Every 6 hours as needed, not to exceed 30 mL in 24 hours 11/29/2020 12/03/2020 Inactive doxycycline hyclate 100 mg capsule RxNorm: 2395604 1 Cap kimi(s) Oral two times a day 09/29/2020 10/05/2020 Inactive Lalita-D 12 Hour 60 mg-120 mg tablet,extended release RxNor m: 759619 1 Tablet(s) Oral QD 09/19/2020 10/03/2020 Inactive ProAir HFA 90 mcg/actuation aerosol inhaler RxNorm: 370787 2 Inhalation Q4H as needed 09/19/2020 09/19/2020 Inactive propranolol 20 mg tablet RxNorm: 840514 TAKE 1 TABLET BY MOUTH TWICE DAILY 09/15/2020 09/15/2020 Inactive pantoprazole 40 mg tablet,delayed release RxNorm: 740611 1 Tabl et(s) Oral QD 09/09/2020 09/08/2020 Inactive pantoprazole 40 mg tablet,delayed release RxNorm: 830172 1 Tabl et(s) Oral QD 09/09/2020 11/07/2020 Inactive propranolol 20 mg tablet RxNorm: 681121 TAKE 1 TABLET BY MOUTH TWICE DAILY 08/24/2020 09/09/2020 Inactive levothyroxine 137 mcg tablet RxNorm: 686824 1 Tablet(s) Oral QD 08/202001/02/2021 Inactive lxxiiwnn-rkazcouoi-nmnmpfag 3.5 mg/mL-10,000 unit/mL-0 .1% eye drops RxNorm: 268215 4 Drop(s) Otic three times a day 08/10/2020 02/05/2022 Inactive prednisone 20 mg tablet RxNorm: 630376 1 Tablet(s) Oral two antonio es a day 08/01/2020 08/08/2020 Inactive pantoprazole 40 mg tablet,delayed release RxNorm: 203439 1 Tabl et(s) Oral QD 07/13/2020 09/08/2020 Inactive ondansetron HCl 4 mg tablet RxNorm: 324064 1 Tablet(s) Oral Q4H as needed for nausea 07/13/2020 05/09/2022 Inactive levothyroxine 137 mcg tablet RxNorm: 479796 1 Tablet(s) Oral QD 08/23/2020 Inactive pantoprazole 40 mg tablet,delayed release RxNorm: 177721 1 Tabl et(s) Oral QD 07/13/2020 07/12/2020 Inactive ondansetron HCl 4 mg tablet RxNorm: 624945 1 Tablet(s) Oral Q4H as needed for nausea 07/05/2020 07/12/2020 Inactive Flagyl 500 mg tablet RxNorm: 262633 1 Tablet(s) Oral three time s a day 07/05/2020 07/12/2020 Inactive Fish Oil 1,000 mg (120 mg-180 mg) capsule RxNorm: 1 Caps ule(s) Oral QD 06/23/2020 09/18/2020 Inactive rosuvastatin 10 mg tablet RxNorm: 936897 1 Tablet(s) Oral MWF 06/2306/22/2020 Inactive rosuvastatin 10 mg tablet RxNorm: 497759 1 Tablet(s) Oral MWF 06/2302/05/2022 Inactive fluconazole 100 mg tablet RxNorm: 127780 1 Tablet(s) Oral QOD 05/1706/21/2020 Inactive Macrobid 100 mg capsule RxNorm: 819233 1 Capsule(s) Oral two ti mes a day 05/17/2020 05/24/2020 Inactive levothyroxine 137 mcg tablet RxNorm: 820072 TAKE 1 TABLET BY [facility] ONCE DAILY 05/16/2020 07/12/2020 Inactive Eliquis 5 mg tablet RxNorm: 1381474 1 Tablet(s) Oral two times a da y 04/25/2020 02/05/2022 Inactive propranolol 20 mg tablet RxNorm: 324925 TAKE 1 TABLET BY MOUTH TWICE DAILY 04/25/2020 08/23/2020 Inactive doxycycline hyclate 100 mg capsule RxNorm: 1598516 1 Cap kimi(s) Oral two times a day 03/24/2020 03/31/2020 Inactive doxycycline hyclate 100 mg capsule RxNorm: 9909015 1 Cap kimi(s) Oral two times a day 03/24/2020 03/23/2020 Inactive propranolol 20 mg tablet RxNorm: 209034 TAKE 1 TABLET BY MOUTH TWICE DAILY 03/15/2020 04/13/2020 Inactive Eliquis 5 mg tablet RxNorm: 4680285 1 Tablet(s) Oral two times a da y 03/14/2020 04/24/2020 Inactive Eliquis 5 mg tablet RxNorm: 0298427 1 Tablet(s) Oral two times a da y 03/14/2020 03/13/2020 Inactive levofloxacin 500 mg tablet RxNorm: 343224 1 Tablet(s) Oral QD 02/1802/26/2020 Inactive levofloxacin 500 mg tablet RxNorm: 443644 1 Tablet(s) Oral QD 02/1802/18/2020 Inactive Tessalon Perles 100 mg capsule RxNorm: 821998 1 Capsule (s) Oral three times a day as needed 02/16/2020 02/25/2020 Inactive levothyroxine 137 mcg tablet RxNorm: 058482 TAKE 1 TABLET BY [facility] ONCE DAILY 02/15/2020 03/15/2020 Inactive ProAir HFA 90 mcg/actuation aerosol inhaler RxNorm: 558193 2 Inhalation Q4H as needed 02/11/2020 09/18/2020 Inactive Medrol (Isaiah) 4 mg tablets in a dose pack RxNorm: 902741 Tablet( s) Oral 02/11/2020 02/11/2020 Inactive levothyroxine 137 mcg tablet RxNorm: 002337 TAKE 1 TABLET BY [facility] ONCE DAILY 12/16/2019 01/14/2020 Inactive propranolol 20 mg tablet RxNorm: 190601 TAKE 1 TABLET BY MOUTH TWICE DAILY 12/16/2019 01/14/2020 Inactive levothyroxine 137 mcg tablet RxNorm: 382277 TAKE 1 TABLET BY [facility] ONCE DAILY 10/16/2019 11/14/2019 Inactive prednisone 20 mg tablet RxNorm: 900867 1 Tablet(s) Oral two times a day for rash/hives 09/29/2019 10/04/2019 Inactive Probiotic 10 billion cell capsule RxNorm: 2441798 1 Capsule(s) O ral QD 09/14/2019 02/10/2020 Inactive Bactrim DS 800 mg-160 mg tablet RxNorm: 182060 1 Tablet(s) Oral two times a day 09/14/2019 09/13/2019 Inactive citalopram 10 mg tablet RxNorm: 039388 1 Tablet(s) Oral two antonio es a day 09/14/2019 12/20/2019 Inactive hydroxychloroquine 200 mg tablet RxNorm: 924311 1 Table t(s) Oral two times a day 09/14/2019 02/05/2022 Inactive Bactrim DS 800 mg-160 mg tablet RxNorm: 033736 1 Tablet(s) Oral two times a day 09/14/2019 09/24/2019 Inactive Cipro 250 mg tablet RxNorm: 335450 1 Tablet(s) Oral two times a day 09/02/2019 09/08/2019 Inactive levothyroxine 137 mcg tablet RxNorm: 963786 1 Tablet(s) Oral QD 10/10/2019 Inactive levothyroxine 137 mcg tablet RxNorm: 467475 1 Tablet(s) Oral QD 08/11/2019 Inactive propranolol 20 mg tablet RxNorm: 904248 TAKE 1 TABLET BY MOUTH TWICE DAILY 06/18/2019 12/14/2019 Inactive 06/18/2019 11:09:41 AM Cipro 250 mg tablet RxNorm: 344472 1 Tablet(s) Oral two times a day 04/17/2019 04/16/2019 Inactive Cipro 250 mg tablet RxNorm: 226406 1 Tablet(s) Oral two times a day 04/17/2019 04/24/2019 Inactive Macrobid 100 mg capsule RxNorm: 875357 1 Capsule(s) Oral two ti mes a day 04/15/2019 04/16/2019 Inactive metronidazole 500 mg tablet RxNorm: 117766 1 Tablet(s) Oral thr ee times a day 03/18/2019 03/28/2019 Inactive Bactrim DS 800 mg-160 mg tablet RxNorm: 866705 1 Tablet(s) Oral two times a day 03/18/2019 03/18/2019 Inactive Cipro 250 mg tablet RxNorm: 891289 1 Tablet(s) PO BID 01/26/201901/22 Inactive Flagyl 500 mg tablet RxNorm: 549398 1 Tablet(s) PO TID 01/26/201904/2019 Inactive prednisone 20 mg tablet RxNorm: 310829 1 Tablet(s) PO B ID for 4 days then 1 po daily for 4 days 01/08/2019 03/17/2019 Inactive doxycycline hyclate 100 mg capsule RxNorm: 6819776 1 Capsule(s) PO BID 01/08/2019 01/14/2019 Inactive doxycycline hyclate 100 mg capsule RxNorm: 7415382 1 Capsule(s) PO BID 01/08/2019 01/07/2019 Inactive propranolol 20 mg tablet RxNorm: 506919 1 Tablet(s) PO BID 12/24/1906/17/2019 Inactive Bactrim DS 800 mg-160 mg tablet RxNorm: 515328 1 Tablet (s) PO BID repeat urine culture 48 hours after antibiotics completed. 12/15/2018 12/14/2018 In active Bactrim DS 800 mg-160 mg tablet RxNorm: 640611 1 Tablet (s) PO BID repeat urine culture 48 hours after antibiotics completed. 12/15/2018 12/19/2018 In active levothyroxine 137 mcg tablet RxNorm: 864682 1 Tablet(s) PO QD 12/0906/06/2019 Inactive meclizine 25 mg tablet RxNorm: 827501 1 Tablet(s) PO TID for di zziness 10/30/2018 11/08/2018 Inactive doxycycline hyclate 100 mg tablet RxNorm: 9523512 1 Tablet(s) PO BI D 10/07/2018 10/16/2018 Inactive albuterol sulfate HFA 90 mcg/actuation aerosol inhaler RxNor m: 695250 2 Puff(s) INH Q4H as needed 10/07/2018 02/10/2020 Inactive chlorpheniramine 4 mg tablet RxNorm: 2658681 1 Tablet(s) PO QHS for allergies 10/07/2018 03/17/2019 Inactive Tessalon 200 mg capsule RxNorm: 954874 1 Capsule(s) PO TID 10/08/1910/26/2018 Inactive doxycycline hyclate 100 mg tablet RxNorm: 8328652 1 Tablet(s) PO BI D 10/07/2018 10/06/2018 Inactive Tessalon 200 mg capsule RxNorm: 489478 1 Capsule(s) PO TID 10/08/1910/06/2018 Inactive levothyroxine 137 mcg tablet RxNorm: 294196 1 Tablet(s) PO QD 08/0512/02/2018 Inactive propranolol 20 mg tablet RxNorm: 923578 1 Tablet(s) PO BID 06/23/2012/19/2018 Inactive chlorpheniramine 4 mg tablet RxNorm: 5799828 1 Tablet(s) PO QHS for allergies 06/23/2018 08/21/2018 Inactive levothyroxine 137 mcg tablet RxNorm: 183506 1 Tablet(s) PO QD 06/0308/01/2018 Inactive levothyroxine 137 mcg tablet RxNorm: 270078 1 Tablet(s) PO QD 06/0306/02/2018 Inactive Synthroid 150 mcg tablet RxNorm: 882004 1 Tablet(s) PO QD 04/03/2018 06/22/2018 Inactive Synthroid 150 mcg tablet RxNorm: 188192 1 Tablet(s) PO QD 04/03/2018 04/02/2018 Inactive propranolol 20 mg tablet RxNorm: 737174 1 Tablet(s) PO BID 03/17/20 18 06/14/2018 Inactive propranolol 20 mg tablet RxNorm: 780452 1 Tablet(s) PO BID 03/17/20 18 06/21/2020 Inactive Lancets,Ultra Thin RxNorm: Miscellaneous Use to test blood sugar daily and as needed (Dx: E11.65) 02/28/2018 05/09/2022 Inactive Contour Test Strips RxNorm: Miscellaneous Test b lood sugar daily and as needed (Dx: E11.65) 02/28/2018 05/09/2022 Inactive Contour Meter RxNorm: 1 Miscellaneous DX: E11.65 02/27/20182021 Inactive DX: E11.65 Synthroid 175 mcg tablet RxNorm: 396575 1 Tablet(s) PO QD 01/28/2018 04/02/2018 Inactive Synthroid 175 mcg tablet RxNorm: 064279 1 Tablet(s) PO QD 01/16/2018 04/02/2018 Inactive Medrol (Isaiah) 4 mg tablets in a dose pack RxNorm: 269954 Tablet(s) P O 10/16/2017 01/15/2018 Inactive cyclobenzaprine 7.5 mg tablet RxNorm: 768324 1/2-1 Tablet(s) PO TID as needed 10/16/2017 06/22/2018 Inactive pantoprazole 40 mg tablet,delayed release RxNorm: 733476 1 Tabl et(s) PO QD 08/21/2017 06/22/2018 Inactive Nexium 40 mg capsule,delayed release RxNorm: 976890 1 Capsule(s ) PO QD 08/20/2017 08/20/2017 Inactive doxycycline hyclate 100 mg capsule RxNorm: 4733035 1 Capsule(s) PO BID 08/13/2017 08/12/2017 Inactive doxycycline hyclate 100 mg capsule RxNorm: 6327652 1 Capsule(s) PO BID 08/13/2017 08/19/2017 Inactive Tessalon Perles 100 mg capsule RxNorm: 381726 1 Capsule(s) PO T ID as needed 07/29/2017 08/07/2017 Inactive prednisone 20 mg tablet RxNorm: 799551 1 Tablet(s) PO BID 07/25/2017 07/27/2017 Inactive albuterol sulfate HFA 90 mcg/actuation aerosol inhaler RxNor m: 749452 2 Puff(s) INH Q4H as needed 07/25/2017 10/06/2018 Inactive doxycycline hyclate 100 mg capsule RxNorm: 7456165 1 Capsule(s) PO BID 06/10/2017 06/19/2017 Inactive prednisone 20 mg tablet RxNorm: 768334 1 Tablet(s) PO T ID for 2 days then 1 po BID for 2 days then 1 daily for 3 days 06/10/2017 08/12/2017 Inactive fenofibrate micronized 134 mg capsule RxNorm: 636449 TAKE 1 CAP KIMI DAILY 06/03/2017 06/22/2018 Inactive Zithromax Z-Isaiah 250 mg tablet RxNorm: 789018 Tablet(s) PO Take as directed 05/28/2017 06/09/2017 Inactive prednisone 20 mg tablet RxNorm: 503636 2 Tablet(s) PO QD 05/28/2017 1 08/01/2016 Inactive Tessalon Perles 100 mg capsule RxNorm: 383004 1 Capsule(s) PO T ID as needed 05/28/2017 06/09/2017 Inactive Janumet XR 100 mg-1,000 mg tablet,extended release RxNorm: 1 798372 1 Tablet(s) PO QD 02/14/2017 06/22/2018 Inactive fluoxetine 40 mg capsule RxNorm: 395570 1 Capsule(s) PO QD 02/15/2006/22/2018 Inactive Vitamin D2 50,000 unit capsule RxNorm: 880250 1 Capsule (s) PO TAKE 1 CAPSULE BY MOUTH TWICE WEEKLY 02/11/2017 07/10/2017 Inactive Generic For:* DRISDOL [id number] 02/03/2015 10:10:59 AM Janumet XR 100 mg-1,000 mg tablet,extended release RxNorm: 1 428299 1 Tablet(s) PO QD 09/24/2016 10/06/2018 Inactive Vitamin D2 50,000 unit capsule RxNorm: 979481 Capsule(s ) TAKE 1 CAPSULE BY MOUTH TWICE WEEKLY 09/11/2016 02/11/2017 Inactive Generic For:*DRI SDOL [id number] 02/03/2015 10:10:59 AM Pepcid 20 mg tablet RxNorm: 346178 Tablet(s) PO TAKE 1 TABLET BY MOUTH TWICE DAILY. 06/14/2016 06/13/2016 Inactive fluoxetine 40 mg capsule RxNorm: 704081 1 Capsule(s) PO QD 06/14/20 16 12/10/2016 Inactive loratadine 10 mg tablet RxNorm: 013842 1 Tablet(s) PO QD 1 Tabl et(s) PO BID 06/14/2016 04/03/2017 Inactive [AttnRPh: Saving ryan ly/adjudicate RxGRP:SG20 RxBIN:[id number] RxPCN: ID#:[id number]] Vitamin D2 50,000 unit capsule RxNorm: 138876 Capsule(s ) TAKE 1 CAPSULE BY MOUTH TWICE WEEKLY 06/14/2016 09/10/2016 Inactive Generic For:*DRI SDOL [id number] 02/03/2015 10:10:59 AM Synthroid 175 mcg tablet RxNorm: 288199 1 Tablet(s) PO Saturday t hrough Saturday QD 06/05/2016 01/15/2018 Inactive Synthroid 150 mcg tablet RxNorm: 077398 1 Tablet(s) PO Sat and Sun 11/09/2015 06/04/2016 Inactive Synthroid 175 mcg tablet RxNorm: 950360 1 Tablet(s) PO Saturday t hrough Saturday11/09/2015 06/04/2016 Inactive Synthroid 150 mcg tablet RxNorm: 345988 1 Tablet(s) PO Sat and Sun , Sat, Sun 11/09/2015 11/08/2015 Inactive Janumet XR 100 mg-1,000 mg tablet,extended release RxNorm: 1 380886 TAKE 1 TABLET DAILY 09/30/2015 09/24/2016 Inactive azithromycin 500 mg tablet RxNorm: 353971 1 Tablet(s) PO QD 016 07/25/2015 Inactive azithromycin 500 mg tablet RxNorm: 553063 1 Tablet(s) PO QD 016 08/01/2015 Inactive loratadine 10 mg tablet RxNorm: 633419 1 Tablet(s) PO BID 04/06/2015 06/14/2016 Inactive [AttnRPh: Saving apply/adjudicate RxGRP: SG20 RxBIN:[id number] RxPCN: ID#:[id number]] Synthroid 175 mcg tablet RxNorm: 204669 1 Tablet(s) PO M, W, F 10/201411/08/2015 Inactive Synthroid 150 mcg tablet RxNorm: 835517 1 Tablet(s) PO QD Tu, T h, Sat, Sun 03/28/2015 11/08/2015 Inactive propranolol 20 mg tablet RxNorm: 827675 1 Tablet(s) PO BID 02/09/20 15 06/13/2016 Inactive fluoxetine 40 mg capsule RxNorm: 731342 1 Capsule(s) PO QD 02/09/20 15 06/14/2016 Inactive Vitamin D2 50,000 unit capsule RxNorm: 979462 TAKE 1 CA PSULE BY MOUTH TWICE WEEKLY 02/03/2015 06/14/2016 Inactive Generic For:*DRI SDOL [id number] 02/03/2015 10:10:59 AM Lipitor 80 mg tablet RxNorm: 427126 1 Tablet(s) PO QD 01/24/201507/26 Inactive [AttnRPh: Saving apply/adjudicate RxGRP: SG20 RxBIN:[id number] RxPCN: ID#:[id number]] Bactrim DS 800 mg-160 mg tablet RxNorm: 372911 1 Tablet(s) PO BID 0 01/12/2015 01/11/2015 Inactive Synthroid 150 mcg tablet RxNorm: 877098 1 Tablet(s) PO QD 01/12/2015 03/27/2015 Inactive Bactrim DS 800 mg-160 mg tablet RxNorm: 535131 1 Tablet(s) PO BID 0 01/12/2015 01/18/2015 Inactive fluoxetine 40 mg capsule RxNorm: 691665 1 Capsule(s) PO QD 01/12/20 15 02/07/2015 Inactive Synthroid 137 mcg tablet RxNorm: 433594 1 Tablet(s) PO QD 12/08/2014 01/11/2015 Inactive [AttnRPh: Saving apply/adjudicate RxGRP: SG20 RxBIN:[id number] RxPCN: ID#:[id number]] Medrol (Isaiah) 4 mg tablets in a dose pack RxNorm: 321025 6 Tablet(s) PO QD --then as directed 11/24/2014 11/29/2014 Inactive albuterol sulfate HFA 90 mcg/actuation aerosol inhaler RxNor m: 508730 2 Puff(s) INH Q4H as needed 10/27/2014 07/24/2017 Inactive phenazopyridine 100 mg tablet RxNorm: 3409884 1 Tablet(s) PO TID 11/07/2015 Inactive [AttnRPh: Saving apply/adjud icate RxGRP:SG20 RxBIN:[id number] RxPCN: ID#:[id number]] Macrobid 100 mg capsule RxNorm: 717439 1 Capsule(s) PO BID 10/28/19 15 11/02/2014 Inactive [SAVINGS FOR NON-COVERED RUBIO GS -- BIN:[id number], PCN: ASPROD1, Group: XXXXX, ID# [id number], Questions: . THIS IS NOT INSURANCE.] prednisone 20 mg tablet RxNorm: 967531 1 Tablet(s) PO BID 10/27/2014 10/31/2014 Inactive AttnRPh: Saving apply/adjudicate RxGRP:S G20 RxBIN:[id number] RxPCN:HT ID#:[id number]: Saving apply/adjudicate RxGRP:SG20 RxBIN:[id number] RxPCN:HT ID#:[id number] Macrobid 100 mg capsule RxNorm: 373613 1 Capsule(s) PO BID 09/24/19 15 09/29/2014 Inactive [SAVINGS FOR NON-COVERED RUBIO GS -- BIN:[id number], PCN: ASPROD1, Group: XXXXX, ID# [id number], Questions: . THIS IS NOT INSURANCE.] phenazopyridine 100 mg tablet RxNorm: 5699041 1 Tablet(s) PO TID 09/24/2014 Inactive [SAVINGS FOR NON-COVERED RUBIO GS -- BIN:[id number], PCN: ASPROD1, Group: XXXXX, ID# [id number], Questions: . THIS IS NOT INSURANCE.] propranolol 60 mg tablet RxNorm: 641958 1 Tablet(s) PO QD 07/26/2014 02/07/2015 Inactive [SAVINGS FOR UNINSURED PATIENTS -- BIN:[id number], PCN: ASPROD1, Group: [id number], ID# [id number], Process claim through [employer], for questions: . THIS IS NOT INSURANCE.] loratadine 10 mg tablet RxNorm: 748498 1 Tablet(s) PO BID 07/12/2014 07/11/2014 Inactive [AttnRPh: Saving apply/adjudicate RxGRP: [id number] RxBIN:[id number] RxPCN: ID#:[id number]] loratadine 10 mg tablet RxNorm: 519064 1 Tablet(s) PO BID 07/12/2014 10/06/2018 Inactive [SAVINGS FOR UNINSURED PATIENTS -- BIN:0 [id number], PCN: ASPROD1, Group: [id number], ID# [id number], Process claim through [employer], for questions: . THIS IS NOT INSURANCE.] Vitamin D2 50,000 unit capsule RxNorm: 582758 1 Capsule (s) PO Take 1 capsule by mouth twice weekly 05/18/2014 02/02/2015 Inactive Pepcid 20 mg tablet RxNorm: 441095 TAKE 1 TABLET BY MOUTH TWICE DAILY. 05/18/2014 06/14/2016 Inactive Generic For:PEPCID 2 0MG 05/18/2014 11:28:51 AM Janumet XR 100 mg-1,000 mg tablet,extended release RxNorm: 1 176224 1 Tablet(s) PO QD 05/12/2014 08/09/2014 Inactive [SAVINGS FOR UNI NSURED PATIENTS -- BIN:[id number], PCN: ASPROD1, Group: [id number], ID# [id number], Process claim through [employer], for questions: . THIS IS NOT INSURANCE.] Voltaren 1 % topical gel RxNorm: 808517 TOP BID 04/21/2014 5 Inactive Apply to affected areas 2-3 times daily as needed. Trilipix 135 mg capsule,delayed release RxNorm: 962980 1 Tablet(s) PO QD 1 Capsule(s) PO QD 04/21/2014 09/17/2014 Inactive may do 90 day f ill if desired Synthroid 137 mcg tablet RxNorm: 291961 1 Tablet(s) PO QD 03/30/2014 09/25/2014 Inactive [AttnRPh: Saving apply/adjudicate RxGRP: SG20 RxBIN:[id number] RxPCN: ID#:[id number]] Cipro 250 mg tablet RxNorm: 505425 1 Tablet(s) PO BID 03/30/201403/24 Inactive [SAVINGS FOR UNINSURED PATIENTS -- BIN:[id number], PCN: ASPROD1, Group: [id number], ID# [id number], Process claim through MedImpact, for questions: . THIS IS NOT INSURANCE.] Janumet XR 100 mg-1,000 mg tablet,extended release RxNorm: 1 735129 2 Tablet(s) PO QD 01/06/2014 01/05/2014 Inactive [SAVINGS FOR UNI NSURED PATIENTS -- BIN:[id number], PCN: ASPROD1, Group: [id number], ID# [id number], Process claim through MedImp[employer], for questions: . THIS IS NOT INSURANCE.] Janumet XR 100 mg-1,000 mg tablet,extended release RxNorm: 1 834498 1 Tablet(s) PO QD 01/06/2014 04/05/2014 Inactive [SAVINGS FOR UNI NSURED PATIENTS -- BIN:553743, PCN: ASPROD1, Group: [id number], ID# [id number], Process claim through MedImp[employer], for questions: . THIS IS NOT INSURANCE.] propranolol 60 mg tablet RxNorm: 552047 1 Tablet(s) PO QD 12/28/2013 07/26/2014 Inactive [AttnRPh: Saving apply/adjudicate RxGRP: SG20 RxBIN:[id number] RxPCN: ID#:[id number]] Synthroid 150 mcg tablet RxNorm: 179214 1 Tablet(s) PO QD brand onl y 12/28/2013 04/20/2014 Inactive [AttnRPh: Saving apply/adjud icate RxGRP:SG20 RxBIN:[id number] RxPCN:HT ID#:[id number]] Vitamin D2 50,000 unit capsule RxNorm: 224857 1 Capsule (s) PO Take 1 capsule by mouth twice weekly 12/02/2013 05/17/2014 Inactive Lipitor 80 mg tablet RxNorm: 239394 1 Tablet(s) PO QD 11/24/201305/25 Inactive [AttnRPh: Saving apply/adjudicate RxGRP: SG20 RxBIN:[id number] RxN: ID#:[id number]] loratadine 10 mg tablet RxNorm: 693927 1 Tablet(s) PO BID 11/17/2013 07/12/2014 Inactive fluoxetine 20 mg capsule RxNorm: 239005 1 Capsule(s) PO QAM TAKE ONE CAPSULE BY MOUTH ONCE DAILY IN THE MORNING. 11/04/2013 01/10/2015 Inactive Generic For:PROZAC 20MG Generic For:PROZAC 20MG 06/23/2013 11:55:55 AM [AttnRPh: Saving apply/adjudicate RxGRP:SG20 RxBIN:[id number] RxPCN: ID#:[id number]] Vytorin 10 mg-80 mg tablet RxNorm: 4346188 Tablet(s) PO TAKE ONE TABLET BY MOUTH ONCE DAILY IN THE EVENING. 09/30/2013 11/23/2013 Inactive Trilipix 135 mg capsule,delayed release RxNorm: 439791 1 Capsul e(s) PO QD 07/15/2013 04/21/2014 Inactive may do 90 day fill i f desired Voltaren 1 % topical gel RxNorm: 224700 TOP BID 07/15/2013 4 Inactive Apply to affected areas 2-3 times daily as needed. Wellbutrin XL 300 mg 24 hr tablet, extended release RxNorm: 786849 1 Tablet(s) PO QAM 06/29/2013 04/03/2017 Inactive fluoxetine 20 mg capsule RxNorm: 532153 1 Capsule(s) PO QAM TAKE ONE CAPSULE BY MOUTH ONCE DAILY IN THE MORNING. 06/29/2013 11/04/2013 Inactive Generic For:PROZAC 20MG Generic For:PROZAC 20MG 06/23/2013 11:55:55 AM fluoxetine 20 mg capsule RxNorm: 651817 Capsule(s) PO T BRIA ONE CAPSULE BY MOUTH ONCE DAILY IN THE MORNING. 06/23/2013 06/28/2013 Inactive Gener ic For:PROZAC 20MG Generic For:PROZAC 20MG 06/23/2013 11:55:55 AM Synthroid 150 mcg tablet RxNorm: 358395 1 Tablet(s) PO QD brand onl y 06/08/2013 12/04/2013 Inactive Vytorin 10 mg-80 mg tablet RxNorm: 9832689 1 Tablet(s) PO QD 201209/05/2013 Inactive TAKE 1 TABLET BY MOUTH DAILY propranolol 60 mg tablet RxNorm: 362339 1 Tablet(s) PO QD 06/08/2013 12/04/2013 Inactive Pepcid 20 mg tablet RxNorm: 667215 Tablet(s) PO TAKE 1 TABLET BY MOUTH TWICE DAILY. 06/04/2013 11/23/2013 Inactive fluoxetine 20 mg capsule RxNorm: 284234 1 Capsule(s) PO QAM 013 06/22/2013 Inactive Wellbutrin XL 300 mg 24 hr tablet, extended release RxNorm: 557040 1 Tablet(s) PO QAM 05/26/2013 06/28/2013 Inactive Wellbutrin XL 150 mg 24 hr tablet, extended release RxNorm: 716017 1 Tablet(s) PO QD 05/15/2013 05/25/2013 Inactive Wellbutrin XL 150 mg 24 hr tablet, extended release RxNorm: 450118 1 Tablet(s) PO QD 05/15/2013 05/14/2013 Inactive Kombiglyze XR 5 mg-500 mg tablet,extended release RxNorm: 10 48057 1 Tablet(s) PO QD 05/07/2013 05/15/2013 Inactive cefdinir 300 mg capsule RxNorm: 704647 2 Capsule(s) PO QD 04/23/2013 05/02/2013 Inactive AttnRPh: Saving apply/adjudicate RxGRP:S G20 RxBIN:[id number] RxPCN:HT ID#:[id number] Pepcid 20 mg tablet RxNorm: 372196 Tablet(s) PO TAKE 1 TABLET BY MOUTH TWICE DAILY. 04/17/2013 06/13/2016 Inactive Pepcid 20 mg tablet RxNorm: 113259 1 Tablet(s) PO BID 04/06/201305/24 Inactive Vytorin 10-80 10 mg-80 mg tablet RxNorm: 143959 1 Tablet(s) PO QD 0 02/19/2013 06/08/2013 Inactive TAKE 1 TABLET BY MOUTH DAILY loratadine 10 mg tablet RxNorm: 751138 1 Tablet(s) PO BID 01/23/2013 07/21/2013 Inactive Synthroid 150 mcg tablet RxNorm: 774164 1 Tablet(s) PO QD brand onl y 12/02/2012 06/08/2013 Inactive propranolol 60 mg tablet RxNorm: 193897 1 Tablet(s) PO QD 12/02/2012 06/08/2013 Inactive Trilipix 135 mg capsule,delayed release RxNorm: 380090 1 Capsul e(s) PO QD 12/02/2012 05/30/2013 Inactive may do day fill i f desired Pepcid 20 mg tablet RxNorm: 835693 1 Tablet(s) PO BID 11/27/201203/24 Inactive Effexor XR 150 mg capsule,extended release RxNorm: 237600 1 Cap kimi(s) PO QD 11/24/2012 05/14/2013 Inactive Vytorin 10-80 10 mg-80 mg tablet RxNorm: 559366 1 Tablet(s) PO QD 0 11/24/2012 2013 Inactive TAKE 1 TABLET BY MOUTH DAILY Vytorin 10-80 10 mg-80 mg tablet RxNorm: 910364 1 Tablet(s) PO QD 0 11/21/2012 11/24/2012 Inactive TAKE 1 TABLET BY MOUTH DAILY Effexor XR 150 mg capsule,extended release RxNorm: 961498 1 Cap kimi(s) PO QD 11/21/2012 11/24/2012 Inactive loratadine 10 mg tablet RxNorm: 6992019 1 Tablet(s) PO BID 11/12/19 13 01/23/2013 Inactive Vytorin 10-80 10 mg-80 mg tablet RxNorm: 031368 Tablet( s) PO TAKE 1 TABLET BY MOUTH ONCE DAILY. 10/15/2012 11/21/2012 Inactive Vytorin 10-80 10 mg-80 mg tablet RxNorm: 640383 1 Tablet(s) PO QD 0 10/15/2012 11/20/2012 Inactive TAKE 1 TABLET BY MOUTH DAILY Effexor XR 150 mg capsule,extended release RxNorm: 432788 1 Cap kimi(s) PO QD 10/15/2012 11/20/2012 Inactive Effexor XR 150 mg capsule,extended release RxNorm: 893186 Capsule(s) PO TAKE 1 CAPSULE BY MOUTH ONCE DAILY 10/15/2012 11/21/2012 Inactive azithromycin 250 mg tablet RxNorm: 308565 2 Tablet(s) PO QD 013 09/10/2012 Inactive Culturelle 10 billion cell capsule RxNorm: 559906 1 Cap kimi(s) PO BID for diarrhea maintenance 09/03/2012 10/02/2012 Inactive Medrol (Isaiah) 4 mg tablets in a dose pack RxNorm: 889123 Tablet(s) PO as directed 09/03/2012 07/11/2011 Active as directed Culturelle 10 billion cell capsule RxNorm: 881962 1 Capsule(s) PO BID 07/23/2012 08/21/2012 Inactive Vitamin D2 50,000 unit capsule RxNorm: 353787 Capsule(s ) PO TAKE 1 CAPSULE EVERY DAY SATURDAY THRU Saturday07/09/2012 08/20/2013 Inactive Vitamin D2 50,000 unit capsule RxNorm: 4991866 Capsule(s ) PO TAKE 1 CAPSULE EVERY DAY SATURDAY THRU Saturday07/07/2012 07/08/2012 Inactive Vitamin D2 50,000 unit capsule RxNorm: 2870672 Capsule(s ) PO TAKE 1 CAPSULE EVERY DAY SATURDAY THRU Saturday07/07/2012 07/06/2012 Inactive Vitamin D2 50,000 unit capsule RxNorm: 6906919 Capsule(s ) PO TAKE 1 CAPSULE EVERY DAY SATURDAY THRU Saturday06/27/2012 07/06/2012 Inactive Synthroid 150 mcg tablet RxNorm: 852126 1 Tablet(s) PO QD brand onl y 06/09/2012 12/02/2012 Inactive metformin 1,000 mg tablet RxNorm: 064924 1 Tablet(s) PO BID rep laces 500mg dose 05/20/2012 11/10/2012 Inactive propranolol 60 mg tablet RxNorm: 822148 1 Tablet(s) PO QD 04/23/2012 12/02/2012 Inactive Effexor XR 150 mg capsule,extended release RxNorm: 730724 1 Cap kimi(s) PO QD 04/04/2012 09/30/2012 Inactive Zyrtec 10 mg tablet RxNorm: 7253824 1 Tablet(s) PO QD 04/04/201203/24 Inactive Trilipix 135 mg capsule,delayed release RxNorm: 352483 1 Capsul e(s) PO QD 03/19/2012 12/02/2012 Inactive may do 90 day fill i f desired Vytorin 10-80 10 mg-80 mg tablet RxNorm: 951891 1 Tablet(s) PO QD 0 01/31/2012 07/28/2012 Inactive TAKE 1 TABLET BY MOUTH DAILY Voltaren 1 % topical gel RxNorm: 630270 TOP BID 01/25/2012 4 Inactive Apply to affected areas 2-3 times daily as needed. Synthroid 150 mcg tablet RxNorm: 942398 1 Tablet(s) PO QD brand onl y 01/02/2012 06/09/2012 Inactive metformin ER 1,000 mg 24 hr Tab Ctrl Rel RxNorm: 732538 1 Table t(s) PO QD 01/02/2012 05/19/2012 Inactive metformin ER 500 mg 24 hr Tab RxNorm: 619943 Tablet(s) PO 12/21/2011 01/01/2012 Inactive TAKE 1 TABLET BY MOUTH ONCE DAILY. Voltaren 1 % Topical Gel RxNorm: 839486 TOP BID 11/28/2011 2 Inactive Apply to affected areas 2-3 times daily as needed. propranolol 60 mg tablet RxNorm: 271809 1 Tablet(s) PO QD 10/17/2011 04/23/2012 Inactive Effexor XR 150 mg capsule,extended release RxNorm: 891156 1 Cap kimi(s) PO QD 09/13/2011 04/04/2012 Inactive Medrol (Isaiah) 4 mg tablets in a dose pack RxNorm: 288265 Tablet(s) PO as directed 09/04/2011 07/11/2011 Active as directed doxycycline hyclate 100 mg Tab RxNorm: 9091684 1 Tablet(s) PO BID 0 09/04/2011 09/13/2011 Inactive doxycycline monohydrate 100 mg Tab RxNorm: 2328463 1 Tablet(s) P O BID 07/25/2011 08/03/2011 Inactive prednisone 10 mg Tab RxNorm: 084944 1 Tablet(s) PO TID 07/25/201112/2011 Inactive Synthroid 150 mcg Tab RxNorm: 441023 1 Tablet(s) PO QD brand only 0 07/12/2011 01/02/2012 Inactive Vytorin 10-80 10 mg-80 mg Tab RxNorm: 113821 1 Tablet(s) PO QD 05/2601/31/2012 Inactive TAKE 1 TABLET BY MOUTH DAILY Vitamin D2 50,000 unit capsule RxNorm: 4107689 1 Capsule(s) PO Q D M-F 05/15/2011 06/26/2012 Inactive TAKE 1 CAPSULE BY MO [facility] DAILY SATURDAY THROUGH FRIDAYS Synthroid 150 mcg Tab RxNorm: 711100 1 Tablet(s) PO QD brand only 1 07/09/2010 07/11/2011 Inactive doxycycline monohydrate 100 mg Tab RxNorm: 0466320 1 Tablet(s) P O BID 04/25/2011 05/04/2011 Inactive Trilipix 135 mg capsule,delayed release RxNorm: 745447 1 Capsul e(s) PO QD 04/23/2011 03/19/2012 Inactive cefdinir 300 mg Cap RxNorm: 286496 1 Capsule(s) PO BID 04/04/2011 Inactive propranolol 60 mg Tab RxNorm: 095674 1 Tablet(s) PO QD 03/26/2011 Inactive Ultram 50 mg Tab RxNorm: 822207 1-2 Tablet(s) PO QID 03/22/201103/21 Active prn pain metformin ER 500 mg 24 hr Tab RxNorm: 614454 1 Tablet(s) PO QD 06/201006/21/2011 Inactive Synthroid 150 mcg Tab RxNorm: 106662 1 Tablet(s) PO QD 02/22/201112/2010 Inactive Vytorin 10-80 10 mg-80 mg Tab RxNorm: 497977 1 Tablet(s) PO QD 01/2303/13/2011 Inactive TAKE 1 TABLET BY MOUTH DAILY Trilipix 135 mg Cap RxNorm: 250050 1 Capsule(s) PO QD 01/10/201103/26 Inactive Effexor XR 150 mg 24 hr Cap RxNorm: 405212 1 Capsule(s) PO QD 01/0908/06/2011 Inactive Vitamin D 50,000 unit Cap RxNorm: 6773246 Capsule(s) PO 12/20/2010 Inactive TAKE 1 CAPSULE BY MOUTH DAILY Fridays Septra DS 800 mg-160 mg Tab RxNorm: 753350 1 Tablet(s) PO BID 12/0712/16/2010 Inactive mupirocin 2 % Ointment RxNorm: 088527 1 Application TOP BID Apply to affected area twice daily 12/07/2010 12/13/2010 Inactive Trilipix 135 mg Cap RxNorm: 300657 1 Capsule(s) PO QD 10/16/201003/26 Inactive Synthroid 150 mcg Tab RxNorm: 940489 1 Tablet(s) PO QD 10/09/201006/2010 Inactive metformin ER 500 mg 24 hr Tab RxNorm: 928519 1 Tablet(s) PO QD 09/2202/22/2011 Inactive Nexium 40 mg Cap RxNorm: 159911 1 Capsule(s) PO QD 10/05/2010 019 Inactive Vytorin 10-80 10 mg-80 mg Tab RxNorm: 033229 1 Tablet(s) PO QD 09/201002/12/2011 Inactive propranolol 60 mg Tab RxNorm: 152828 1 Tablet(s) PO QD 09/18/201008/2010 Inactive Synthroid 125 mcg Tab RxNorm: 699210 1 Tablet(s) PO QD 08/07/2010 Inactive Synthroid 125 mcg Tab RxNorm: 238859 1 Tablet(s) PO QD 08/07/2010 Inactive Voltaren 1 % Topical Gel RxNorm: 492516 TOP BID Apply t o affected areas 2-3 times daily as needed. 08/01/2010 11/28/2011 Inactive Voltaren 1 % Topical Gel RxNorm: 398549 TOP BID Apply t o affected areas 2-3 times daily as needed. 07/04/2010 07/31/2010 Inactive Advair Diskus 250 mcg-50 mcg/dose for Inhalation RxNorm: 135 9859 1 Puff(s) INH Q12H 07/04/2010 07/11/2011 Inactive Effexor XR 150 mg 24 hr Cap RxNorm: 984558 1 Capsule(s) PO QD 06/0801/03/2011 Inactive Synthroid 100 mcg Tab RxNorm: 155290 1 Tablet(s) PO QD 06/06/2010 Inactive Vitamin D 50,000 unit Cap RxNorm: 2263521 1 Capsule(s) PO QD M-F 05/15/2011 Inactive Synthroid 150 mcg Tab RxNorm: 067469 1 Tablet(s) PO 05/25/20102010 Inactive Vytorin 10-80 10 mg-80 mg Tab RxNorm: 221190 1 Tablet(s) PO QD 04/2509/25/2010 Inactive Trilipix 135 mg Cap RxNorm: 419045 1 Capsule(s) PO QD 04/17/201009/23 Inactive propranolol 60 mg Tab RxNorm: 280649 1 Tablet(s) PO QD 01/09/2010 Inactive Advair Diskus 250 mcg-50 mcg/dose for Inhalation RxNorm: 135 9859 1 Puff(s) INH Q12H 12/26/2009 07/04/2010 Inactive Advair Diskus 250 mcg-50 mcg/Dose for Inhalation RxNorm: 135 9859 1 Puff(s) INH Q12H 11/26/2009 12/25/2009 Inactive Synthroid 200 mcg Tab RxNorm: 842030 1 Tablet(s) PO QD 11/24/2009 Inactive Effexor XR 150 mg 24 hr Cap RxNorm: 056285 1 Capsule(s) PO QD 10/2705/24/2010 Inactive Lisinopril 10 mg Tab RxNorm: 424004 1 Tablet(s) PO QD 10/17/200909/23 Inactive Propranolol 60 mg Tab RxNorm: 721539 1 Tablet(s) PO QD 10/17/2009 Inactive Septra DS 160 mg-800 mg Tab RxNorm: 035161 1 Tablet(s) PO BID 10/0410/08/2009 Inactive Mupirocin 2 % Ointment RxNorm: 049339 TOP Q6-8H 10/04/2009 10/10/2009 Inactive Voltaren 1 % Topical Gel RxNorm: 842343 TOP BID Apply t o affected areas 2-3 times daily as needed. 09/21/2009 03/19/2010 Inactive Trilipix 135 mg Cap RxNorm: 037607 1 Capsule(s) PO QD 09/20/200902/23 Inactive Nexium 40 mg Cap RxNorm: 533696 1 Capsule(s) PO QD 09/19/2009 010 Inactive Tylenol Arthritis 650 mg Tab RxNorm: 1106002 2 Tablet(s) PO BID 09/21 Active Vitamin D3 5,000 unit tablet RxNorm: 201193 1 Tablet(s) PO QD 019 Active Synthroid 150 mcg tablet RxNorm: 068155 1 Tablet(s) PO QD 01/12/2015 01/11/2015 Inactive Synthroid 150 mcg tablet RxNorm: 988578 1 Tablet(s) PO Saturday and Saturday01/16/2018 01/15/2018 Inactive Vitamin D 2,000 unit Cap RxNorm: 1 Capsule(s) PO QD 01/30/201002/2010 Inactive Flexeril 5 mg tablet RxNorm: 277145 1/2 to 1 Tablet(s) PO TID as needed for muscle spasm 06/10/2017 06/09/2017 Inactive Medrol (Siaiah) 4 mg Tabs in a Dose Pack RxNorm: 642706 Tablet(s) PO 0 09/04/2011 07/11/2011 Inactive as directed fenofibrate micronized 134 mg capsule RxNorm: 070775 1 Capsule( s) PO QD 06/03/2017 06/02/2017 Inactive Vitamin D2 50,000 unit capsule RxNorm: 494320 Capsule(s ) PO Take 1 capsule by mouth twice weekly 12/02/2013 12/01/2013 Inactive prednisone 20 mg tablet RxNorm: 150630 1 Tablet(s) PO BID 03/30/2014 03/29/2014 Inactive AttnRPh: Saving apply/adjudicate RxGRP:S G20 RxBIN:[id number] RxPCN:HT ID#:[id number]: Saving apply/adjudicate RxGRP:SG20 RxBIN:[id number] RxPCN:HT ID#:[id number] Soma 350 mg tablet RxNorm: 040985 1 Tablet(s) PO TID prn spasm 01/2310/08/2010 Inactive Lancets,Ultra Thin RxNorm: Miscellaneous Use to test blood sugar daily and as needed (Dx: E11.65) 02/28/2018 02/27/2018 Inactive pantoprazole 40 mg tablet,delayed release RxNorm: 217290 1 Tabl et(s) PO QD 08/21/2017 08/20/2017 Inactive Janumet XR 100 mg-1,000 mg tablet,extended release RxNorm: 1 918522 2 Tablet(s) PO QD 01/06/2014 01/05/2014 Inactive Contour Meter RxNorm: miscellaneous 02/27/2018 02/26/2018 Inactive Synthroid 200 mcg Tab RxNorm: 248769 1 Tablet(s) PO QD 11/24/200907/2009 Inactive Kombiglyze XR 5 mg-500 mg tablet,extended release RxNorm: 10 79986 1 Tablet(s) PO QD 05/07/2013 05/06/2013 Inactive Zithromax Z-Isaiah 250 mg tablet RxNorm: 335052 Tablet(s) PO as di rected 05/14/2013 05/13/2013 Inactive AttnRPh: Saving appl y/adjudicate RxGRP:SG20 RxBIN:[id number] RxPCN:HT ID#:[id number] Fish Oil 1,000 mg capsule RxNorm: 3 Capsule(s) PO QD 04/04/2017 Inactive Lasix Oral RxNorm: Oral 03/30/2014 03/29/2014 Inactive loratadine 10 mg tablet RxNorm: 956148 1 Tablet(s) PO QD 08/20/2017 0 08/19/2017 Inactive Vitamin D 5,000 unit Tab RxNorm: 1 Tablet(s) PO twice a week 1 08/07/2009 06/05/2010 Inactive permethrin 5 % Topical Cream RxNorm: 264457 TOP Use as directed 02/03/2013 Inactive Gabapentin 100 mg Tab RxNorm: 466762 1 Tablet(s) PO BID 04/12/2010 Inactive Voltaren 1 % topical gel RxNorm: 886705 TOP as needed 06/23/201805/26 Inactive Gabapentin 300 mg Cap RxNorm: 071169 1 Capsule(s) PO BID 07/12/2011 0 07/11/2011 Inactive Contour Test Strips RxNorm: Miscellaneous Test blood sug ar daily (Dx: E11.65) 02/28/2018 02/27/2018 Inactive Promethazine 25 mg Tab RxNorm: 274541 1 Tablet(s) PO Q6 -8H As needed for nausea and vomiting. 10/09/2010 10/08/2010 Inactive propranolol 20 mg tablet RxNorm: 839665 1 Tablet(s) PO BID 03/17/20 18 03/16/2018 Inactive Vitamin D 50,000 unit Cap RxNorm: 0107469 Capsule(s) PO 2 weekly 06/05/2010 Inactive Synthroid 175 mcg Tab RxNorm: 981968 1 Tablet(s) PO QD 07/12/2011 Inactive triamcinolone acetonide 0.1 % Ointment RxNorm: 4967679 T OP TID apply three times a day (sparingly) as needed for itching 04/04/2017 04/03/2017 Inactive Ultram 50 mg Tab RxNorm: 375399 1-2 Tablet(s) PO QID prn pain 03/2203/22/2011 Inactive Topamax 100 mg Tab RxNorm: 469569 1 Tablet(s) PO BID 10/04/200910/03 Inactive Vitamin D3 1000 units Capsule RxNorm: 3 Capsule(s) PO QD 0 06/05/2010 Inactive Singulair 10 mg tablet RxNorm: 552242 1 Tablet(s) PO QD 06/23/2018 Inactive Medication [...] Code Result Date S ervice Location SARS-CoV2 7145638 SARS-CoV2 PCR Detected 07/08/2021 Unkno wn GFR CALC 2049519 GFR Non Afr Amr >60 mL/min 01/26/2019 Un known GFR CALC 7419627 GFR Afr Amr >60 mL/min 01/26/2019 Unknow n COMPLETE BLOOD COUNT 2957778 WBC 7.0 10e9/L 01/27/20 19 Unknown COMPLETE BLOOD COUNT [id number] RBC 4.52 10e12/L 2018 Unknown COMPLETE BLOOD COUNT 7059207 HEMOGLOBIN 14.0 g/dL 01/27/20 19 Unknown COMPLETE BLOOD COUNT 5143291 HEMATOCRIT 42.6 % 01/27/20 19 Unknown COMPLETE BLOOD COUNT 6021865 MCV 94.2 fL 9 Unknown COMPLETE BLOOD COUNT 3808214 MCH 31.0 pg 9 Unknown COMPLETE BLOOD COUNT 2959230 MCHC 32.9 g/dL 9 Unknown COMPLETE BLOOD COUNT 6723230 PLATELET COUNT 272 10e9/L 10/2018 Unknown COMPLETE BLOOD COUNT 2962061 Mean Plt Volume 10.4 fL 10/2018 Unknown COMPLETE BLOOD COUNT 5083019 Neut Auto 53.9 % 9 Unknown COMPLETE BLOOD COUNT 9303556 Lymph Auto 33.8 % 01/27/20 19 Unknown COMPLETE BLOOD COUNT 1469273 [place] Auto 9.1 % 9 Unknown COMPLETE BLOOD COUNT 4569542 RDW 13.2 % 9 Unknown COMPLETE BLOOD COUNT 5025850 Eos Auto 2.3 % 9 Unknown COMPLETE BLOOD COUNT 0404648 Baso Auto 0.9 % 9 Unknown COMPLETE BLOOD COUNT 2134304 Neutrophil Abs 3.77 10e9/L Unknown COMPLETE BLOOD COUNT 6961134 Lymphocyte Abs 2.37 10e9/L Unknown COMPLETE BLOOD COUNT 2029105 Monocyte Abs 0.64 10e9/L 10/2018 Unknown COMPLETE BLOOD COUNT 2101728 Eosinophil Abs 0.16 10e9/L Unknown COMPLETE BLOOD COUNT 6827389 RDW-SD 44.2 fL 9 Unknown COMPLETE BLOOD COUNT 7500339 Basophil Abs 0.06 10e9/L 10/2018 Unknown COMPREHENSIVE METABOLIC 63609 AST 15 U/L 2018 Unknown COMPREHENSIVE METABOLIC 26614 ALT 18 U/L 2018 Unknown COMPREHENSIVE METABOLIC 77524 BUN 10 mg/dL 2018 Unknown COMPREHENSIVE METABOLIC 10571 ALBUMIN 4.1 g/dL 2018 Unknown COMPREHENSIVE METABOLIC 47912 CHLORIDE 100 mmol/L 01/26 Unknown COMPREHENSIVE METABOLIC 00877 Bili Total 0.4 mg/dL 01/26 Unknown COMPREHENSIVE METABOLIC 20641 ALK PHOS 57 U/L 2018 Unknown COMPREHENSIVE METABOLIC 26088 SODIUM 136 mmol/L 01/26 Unknown COMPREHENSIVE METABOLIC 43374 CREATININE 0.71 mg/dL 10/2018 Unknown COMPREHENSIVE METABOLIC 69696 CALCIUM 9.3 mg/dL 2018 Unknown COMPREHENSIVE METABOLIC 03974 POTASSIUM 4.4 mmol/L 01/26 Unknown COMPREHENSIVE METABOLIC 55449 Total Protein 6.7 g/dL Unknown COMPREHENSIVE METABOLIC 11863 Glucose 88 mg/dL 2018 Unknown COMPREHENSIVE METABOLIC 22676 Bicarbonate 27 mmol/L 10/2018 Unknown COMPREHENSIVE METABOLIC 82283 AGAP 9 mmol/L 2018 Unknown Procedures Procedure Codes Date URINALYSIS NONAUTO W/O SCOPE CPT-4: 70863 09/05/2022 RML URINE CULTURE/ COLONY COUNT CPT-4: 17049 09/06/19 23 RML URINE CULTURE/ COLONY COUNT CPT-4: 16594 06/29/19 23 THER/PROPH/DIAG INJ SC/IM CPT-4: 25733 04/18/2022 KETOROLAC TROMETHAMINE INJ CPT-4: J1885 04/18/2022 FLU 64 + VACC AIIV4 NO PRSRV 0.5ML IM CPT-4: 88958 ADMIN INFLUENZA VIRUS VAC CPT-4: G0008 04/05/2022 PPPS, subseq visit CPT-4: G0439 02/06/2022 DEXAMETHASONE SODIUM PHOS CPT-4: J1100 11/09/2021 THER/PROPH/DIAG INJ SC/IM CPT-4: 08233 11/09/2021 TRIAMCINOLONE ACET INJ NOS CPT-4: J3301 11/09/2021 CEFTRIAXONE SODIUM INJECTION CPT-4: J0696 10/30/2021 THER/PROPH/DIAG INJ SC/IM CPT-4: 09831 10/30/2021 INFLUENZA ASSAY W/OPTIC CPT-4: 36826 10/30/2021 THER/PROPH/DIAG INJ SC/IM CPT-4: 07252 09/05/2021 TRIAMCINOLONE ACET INJ NOS CPT-4: J3301 09/05/2021 INFLUENZA ASSAY W/OPTIC CPT-4: 50053 07/04/2021 SARS-CoV2 CPT-4: 4779420 07/04/2021 FLU VACC PRSV FREE INC ANTIG 65 AND OLDER CPT-4: 98007 03/29/2021 FLU VACC PRSV FREE INC ANTIG 65 AND OLDER CPT-4: 27075 03/29/2021 ADMIN INFLUENZA VIRUS VAC CPT-4: G0008 03/29/2021 DRAINAGE OF SKIN ABSCESS CPT-4: 98221 02/08/2021 PPPS, subseq visit CPT-4: G0439 01/03/2021 OCCULT BLOOD FECES CPT-4: 28743 07/13/2020 RML URINE CULTURE/ COLONY COUNT CPT-4: 51599 05/17/20 20 URINALYSIS NONAUTO W/O SCOPE CPT-4: 62490 05/17/2020 CEFTRIAXONE SODIUM INJECTION CPT-4: J0696 03/07/2020 THER/PROPH/DIAG INJ SC/IM CPT-4: 48579 03/07/2020 THER/PROPH/DIAG INJ SC/IM CPT-4: 81814 03/07/2020 METHYLPREDNISOLONE INJECTION CPT-4: J2930 03/07/2020 PPPS, subseq visit CPT-4: G0439 12/21/2019 RML URINE CULTURE/ COLONY COUNT CPT-4: 14568 09/11/19 20 CEFTRIAXONE SODIUM INJECTION CPT-4: J0696 09/08/2019 THER/PROPH/DIAG INJ SC/IM CPT-4: 53247 09/08/2019 THER/PROPH/DIAG INJ SC/IM CPT-4: 86841 09/07/2019 CEFTRIAXONE SODIUM INJECTION CPT-4: J0696 09/07/2019 THER/PROPH/DIAG INJ SC/IM CPT-4: 53647 09/07/2019 URINALYSIS NONAUTO W/O SCOPE CPT-4: 31961 09/02/2019 RML URINE CULTURE/ COLONY COUNT CPT-4: 03620 09/02/19 20 FLU VACC PRSV FREE INC ANTIG 65 AND OLDER CPT-4: 31568 04/15/2019 URINALYSIS NONAUTO W/O SCOPE CPT-4: 10008 04/15/2019 RML URINE CULTURE/ COLONY COUNT CPT-4: 17137 04/15/20 19 ADMIN INFLUENZA VIRUS VAC CPT-4: G0008 04/15/2019 FLU VACC PRSV FREE INC ANTIG 65 AND OLDER CPT-4: 75931 04/15/2019 THER/PROPH/DIAG INJ SC/IM CPT-4: 37450 04/07/2019 TRIAMCINOLONE ACET INJ NOS CPT-4: J3301 04/07/2019 DEXAMETHASONE SODIUM PHOS CPT-4: J1100 04/07/2019 URINALYSIS NONAUTO W/O SCOPE CPT-4: 50375 03/18/2019 RML URINE CULTURE/ COLONY COUNT CPT-4: 73621 03/18/20 19 ROUTINE VENIPUNCTURE CPT-4: 00372 01/26/2019 RML COMPREHEN METABOLIC PANEL CPT-4: 48757 01/26/2019 RML COMPLETE CBC W/AUTO DIFF WBC CPT-4: 65008 019 RML URINE CULTURE/ COLONY COUNT CPT-4: 48025 01/27/20 19 URINALYSIS NONAUTO W/O SCOPE CPT-4: 56711 01/26/2019 THER/PROPH/DIAG INJ SC/IM CPT-4: 98131 01/08/2019 TRIAMCINOLONE ACET INJ NOS CPT-4: J3301 01/08/2019 THER/PROPH/DIAG INJ SC/IM CPT-4: 25815 01/06/2019 METHYLPREDNISOLONE INJECTION CPT-4: J2930 01/06/2019 AIRWAY INHALATION TREATMENT CPT-4: 95259 01/06/2019 RML URINE CULTURE/ COLONY COUNT CPT-4: 90641 01/07/20 19 PPPS, subseq visit CPT-4: G0439 12/11/2018 URINALYSIS NONAUTO W/O SCOPE CPT-4: 76954 12/11/2018 RML URINE CULTURE/ COLONY COUNT CPT-4: 97595 12/12/19 19 CULTURE OTHR SPECIMN AEROBIC CPT-4: 30536 12/11/2018 OCCULT BLOOD FECES CPT-4: 42877 12/11/2018 THER/PROPH/DIAG INJ SC/IM CPT-4: 43873 10/07/2018 TRIAMCINOLONE ACET INJ NOS CPT-4: J3301 10/07/2018 DEXAMETHASONE SODIUM PHOS CPT-4: J1100 10/07/2018 THER/PROPH/DIAG INJ SC/IM CPT-4: 13122 10/16/2017 TRIAMCINOLONE ACET INJ NOS CPT-4: J3301 10/16/2017 THER/PROPH/DIAG INJ SC/IM CPT-4: 10/16/2017 KETOROLAC TROMETHAMINE INJ CPT-4: J1885 10/16/2017 INFLUENZA ASSAY W/OPTIC CPT-4: 47519 07/25/2017 FLU VACC PRSV FREE INC ANTIG 65 AND OLDER CPT-4: 63508 04/04/2017 PNEUMOCOCCAL VACC 23 DANAY IM CPT-4: 41113 04/04/2017 PPPS, subseq visit CPT-4: G0439 04/04/2017 ADMIN INFLUENZA VIRUS VAC CPT-4: G0008 04/04/2017 ADMIN PNEUMOCOCCAL VACCINE CPT-4: G0009 04/04/2017 URINALYSIS NONAUTO W/O SCOPE CPT-4: 05908 06/05/2016 FLU VACC PRSV FREE INC ANTIG 65 AND OLDER CPT-4: 17201 05/01/2016 ADMIN INFLUENZA VIRUS VAC CPT-4: G0008 05/01/2016 URINALYSIS NONAUTO W/O SCOPE CPT-4: 38141 11/08/2015 URINALYSIS NONAUTO W/O SCOPE CPT-4: 00346 03/28/2015 ADMIN INFLUENZA VIRUS VAC CPT-4: G0008 03/28/2015 FLU VACC PRSV FREE INC ANTIG 65 AND OLDER CPT-4: 97160 03/28/2015 PRESCRIP TRANSMIT VIA ERX SY CPT-4: G8553 03/28/2015 PNEUMOCOCCAL VACC 12 DANAY IM CPT-4: 47859 02/08/2015 ADMIN PNEUMOCOCCAL VACCINE CPT-4: G0009 02/08/2015 PRESCRIP TRANSMIT VIA ERX SY CPT-4: G8553 02/08/2015 RML URINE CULTURE/ COLONY COUNT CPT-4: 03476 01/12/20 15 URINALYSIS NONAUTO W/O SCOPE CPT-4: 17203 01/11/2015 PRESCRIP TRANSMIT VIA ERX SY CPT-4: G8553 01/11/2015 PRESCRIP TRANSMIT VIA ERX SY CPT-4: G8553 11/24/2014 URINALYSIS NONAUTO W/O SCOPE CPT-4: 01729 10/27/2014 RML URINE CULTURE/ COLONY COUNT CPT-4: 44159 10/28/19 15 PRESCRIP TRANSMIT VIA ERX SY CPT-4: G8553 10/27/2014 CEFTRIAXONE SODIUM INJECTION CPT-4: J0696 09/23/2014 THER/PROPH/DIAG INJ SC/IM CPT-4: 42638 09/23/2014 URINALYSIS NONAUTO W/O SCOPE CPT-4: 65741 09/23/2014 RML URINE CULTURE/ COLONY COUNT CPT-4: 84510 09/24/19 15 PRESCRIP TRANSMIT VIA ERX SY CPT-4: G8553 09/23/2014 URINALYSIS NONAUTO W/O SCOPE CPT-4: 86317 03/30/2014 RML URINE CULTURE/ COLONY COUNT CPT-4: 89228 03/30/20 14 PRESCRIP TRANSMIT VIA ERX SY CPT-4: G8553 03/30/2014 PRESCRIP TRANSMIT VIA ERX SY CPT-4: G8553 11/24/2013 PRESCRIP TRANSMIT VIA ERX SY CPT-4: G8553 06/29/2013 PRESCRIP TRANSMIT VIA ERX SY CPT-4: G8553 05/26/2013 PRESCRIP TRANSMIT VIA ERX SY CPT-4: G8553 04/23/2013 THER/PROPH/DIAG INJ SC/IM CPT-4: 41472 03/05/2013 KETOROLAC TROMETHAMINE INJ CPT-4: J1885 03/05/2013 PRESCRIP TRANSMIT VIA ERX SY CPT-4: G8553 11/27/2012 PRESCRIP TRANSMIT VIA ERX SY CPT-4: G8553 11/11/2012 PRESCRIP TRANSMIT VIA ERX SY CPT-4: G8553 09/03/2012 PRESCRIP TRANSMIT VIA ERX SY CPT-4: G8553 07/23/2012 PRESCRIP TRANSMIT VIA ERX SY CPT-4: G8553 05/20/2012 PRESCRIP TRANSMIT VIA ERX SY CPT-4: G8553 04/04/2012 DESTRUCT PREMALG LESION (Cryosurgery) CPT-4: 91604 PRESCRIP TRANSMIT VIA ERX SY CPT-4: G8553 01/02/2012 PRESCRIP TRANSMIT VIA ERX SY CPT-4: G8553 09/04/2011 URINALYSIS NONAUTO W/O SCOPE CPT-4: 81801 07/31/2011 PRESCRIP TRANSMIT VIA ERX SY CPT-4: G8553 07/12/2011 PRESCRIP TRANSMIT VIA ERX SY CPT-4: G8553 05/09/2011 THER/PROPH/DIAG INJ SC/IM CPT-4: 11475 05/02/2011 KETOROLAC TROMETHAMINE INJ CPT-4: J1885 05/02/2011 PRESCRIP TRANSMIT VIA ERX SY CPT-4: G8553 04/25/2011 CUR TOBACCO NON-USER CPT-4: G8457 04/04/2011 PRESCRIP TRANSMIT VIA ERX SY CPT-4: G8553 04/04/2011 DRAIN/INJECT JOINT/BURSA CPT-4: 08508 03/01/2011 METHYLPREDNISOLONE 40 MG INJ CPT-4: J1030 03/01/2011 TRIAMCINOLONE ACET INJ NOS CPT-4: J3301 03/01/2011 DRAIN/INJECT JOINT/BURSA CPT-4: 47542 01/04/2011 METHYLPREDNISOLONE 40 MG INJ CPT-4: J1030 01/04/2011 TRIAMCINOLONE ACET INJ NOS CPT-4: J3301 01/04/2011 PRESCRIP TRANSMIT VIA ERX SY CPT-4: G8553 12/07/2010 PRESCRIP TRANSMIT VIA ERX SY CPT-4: G8553 10/09/2010 PRESCRIP TRANSMIT VIA ERX SY CPT-4: G8553 06/06/2010 DRAIN/INJECT JOINT/BURSA CPT-4: 34691 04/12/2010 TRIAMCINOLONE ACET INJ NOS CPT-4: J3301 04/12/2010 METHYLPREDNISOLONE 80 MG INJ CPT-4: J1040 04/12/2010 PRESCRIP TRANSMIT VIA ERX SY CPT-4: G8553 03/20/2010 THER/PROPH/DIAG INJ SC/IM CPT-4: 31241 01/30/2010 KETOROLAC TROMETHAMINE INJ CPT-4: J1885 01/30/2010 PRESCRIP TRANSMIT VIA ERX SY CPT-4: G8553 01/30/2010 DRAIN/INJECT JOINT/BURSA CPT-4: 58766 10/26/2009 TRIAMCINOLONE ACET INJ NOS CPT-4: J3301 10/26/2009 METHYLPREDNISOLONE 80 MG INJ CPT-4: J1040 10/26/2009 DRAINAGE OF SKIN ABSCESS CPT-4: 65614 10/04/2009 Vital Signs Date Vital 09/05/2022 Blood Pressure 1: 124/78 Code: 8480-6 Heart Rate 1: 65 bpm Respiratory Rate: 20 bpm SpO2: 97% Temperature: 36.7 (C) / 98.0 (F) We ight: 224 lbs Code: 78221-1 08/30/2022 Blood Pressure 1: 124/74 Code: 8480-6 Heart Rate 1: 74 bpm Respiratory Rate: 20 bpm SpO2: 96% Temperature: 36.3 (C) / 97.3 (F) We ight: 224 lbs Code: 43039-3 08/07/2022 Blood Pressure 1: 126/74 Code: 8480-6 Heart Rate 1: 73 bpm Respiratory Rate: 20 bpm SpO2: 97% Temperature: 36.2 (C) / 97.1 (F) We ight: 222 lbs Code: 36070-7 06/29/2022 Blood Pressure 1: 132/73 Code: 8480-6 BMI: 36.7 Code: 81836-4 Heart Rate 1: 74 bpm Height: 5'6" Code: 8302-2 SpO2: 96% Temperature: 3 6.4 (C) / 97.6 (F) Weight: 226 lbs Code: 95925-0 05/28/2022 Blood Pressure 1: 129/78 Code: 8480-6 BMI: 37.7 Code: 11855-4 Heart Rate 1: 72 bpm Height: 5'6" Code: 8302-2 SpO2: 95% Temperature: 3 6.2 (C) / 97.1 (F) Weight: 232 lbs Code: 64314-3 05/10/2022 Blood Pressure 1: 133/75 Code: 8480-6 BMI: 38.3 Code: 70948-8 Heart Rate 1: 68 bpm Height: 5'6" Code: 8302-2 SpO2: 98% Temperature: 3 6.2 (C) / 97.1 (F) Weight: 236 lbs Code: 34289-9 04/18/2022 Blood Pressure 1: 118/70 Code: 8480-6 Heart Rate 1: 86 bpm Respiratory Rate: 20 bpm SpO2: 96% Temperature: 36.6 (C) / 97.8 (F) We ight: 238 lbs Code: 85703-8 02/15/2022 Blood Pressure 1: 120/82 Code: 8480-6 Heart Rate 1: 88 bpm Respiratory Rate: 20 bpm SpO2: 98% Temperature: 36.1 (C) / 97.0 (F) We ight: 237 lbs Code: 62289-0 02/06/2022 Blood Pressure 1: 124/80 Code: 8480-6 BMI: 39.4 Code: 49028-5 Heart Rate 1: 76 bpm Height: 5'6" Code: 8302-2 Respiratory Rate: 20 bpm SpO2: 98% Temperature: 36.6 (C) / 97.9 (F) Weight: 242 lbs Code: 45541-6 02/01/2022 Blood Pressure 1: 144/100 Code: 8480-6 Heart Rat e 1: 108 bpm Respiratory Rate: 22 bpm SpO2: 96% Temperature: 36.4 (C) / 97.5 (F) 11/29/2021 Blood Pressure 1: 128/80 Code: 8480-6 Heart Rate 1: 56 bpm Respiratory Rate: 20 bpm SpO2: 97% Temperature: 36.7 (C) / 98.1 (F) We ight: 242 lbs Code: 61279-0 11/22/2021 Blood Pressure 1: 118/80 Code: 8480-6 Heart Rate 1: 84 bpm Respiratory Rate: 20 bpm SpO2: 99% Temperature: 36.3 (C) / 97.4 (F) 11/21/2021 Blood Pressure 1: 132/80 Code: 8480-6 Heart Rate 1: 98 bpm Respiratory Rate: 20 bpm SpO2: 99% Weight: 238 lbs Code: 70857 -7 11/09/2021 Blood Pressure 1: 136/86 Code: 8480-6 Heart Rate 1: 68 bpm Respiratory Rate: 20 bpm SpO2: 95% Temperature: 36.4 (C) / 97.5 (F) We ight: 244 lbs Code: 96176-8 10/31/2021 Blood Pressure 1: 128/80 Code: 8480-6 Heart Rate 1: 80 bpm Respiratory Rate: 28 bpm SpO2: 93% Temperature: 38.0 (C) / 100. 4 (F) 10/30/2021 Blood Pressure 1: 136/82 Code: 8480-6 Heart Rate 1: 120 bpm Respiratory Rate: 24 bpm SpO2: 95% Temperature: 38.0 (C) / 100. 4 (F) 09/05/2021 Blood Pressure 1: 118/84 Code: 8480-6 BMI: 38.5 Code: 96106-6 Heart Rate 1: 72 bpm Height: 5'7" Code: 8302-2 Respiratory Rate: 20 bpm SpO2: 95% Temperature: 36.3 (C) / 97.4 (F) Weight: 246 lbs Code: 17958-9 08/24/2021 Blood Pressure 1: 132/84 Code: 8480-6 Heart Rate 1: 76 bpm Respiratory Rate: 19 bpm SpO2: 98% Temperature: 36.7 (C) / 98.1 (F) We ight: Code: 20851-4 03/01/2021 Blood Pressure 1: 90/52 Code: 8480-6 Heart Rate 1: 66 bpm Respiratory Rate: 22 bpm SpO2: 97% 02/08/2021 Blood Pressure 1: 132/75 Code: 8480-6 Heart Rate 1: 74 bpm Respiratory Rate: 18 bpm SpO2: 98% Temperature: 36.3 (C) / 97.3 (F) We ight: 247 lbs Code: 43368-9 01/19/2021 Blood Pressure 1: 126/76 Code: 8480-6 Heart Rate 1: 76 bpm Respiratory Rate: 20 bpm SpO2: 98% Temperature: 37.1 (C) / 98.8 (F) We ight: 244 lbs Code: 09343-6 01/03/2021 Blood Pressure 1: 124/64 Code: 8480-6 BMI: 38.5 Code: 32048-6 Heart Rate 1: 76 bpm Height: 5'7" Code: 8302-2 Respiratory Rate: 20 bpm SpO2: 96% Temperature: 36.4 (C) / 97.6 (F) Weight: 246 lbs Code: 09856-1 11/29/2020 Blood Pressure 1: 119/68 Code: 8480-6 Heart Rate 1: 73 bpm Respiratory Rate: 20 bpm SpO2: 95% Temperature: 36.1 (C) / 96.9 (F) We ight: 245 lbs Code: 01319-4 09/29/2020 Blood Pressure 1: 136/79 Code: 8480-6 Heart Rate 1: 67 bpm Respiratory Rate: 15 bpm SpO2: 98% Temperature: 36.2 (C) / 97.1 (F) We ight: 237 lbs Code: 21015-7 09/19/2020 Blood Pressure 1: 135/82 Code: 8480-6 Heart Rate 1: 76 bpm Respiratory Rate: 17 bpm SpO2: 96% Temperature: 36.6 (C) / 97.8 (F) We ight: 238 lbs Code: 45014-7 08/10/2020 Blood Pressure 1: 126/82 Code: 8480-6 Heart Rate 1: 60 bpm Respiratory Rate: 20 bpm SpO2: 96% Temperature: 36.3 (C) / 97.3 (F) We ight: 238 lbs Code: 41667-6 08/01/2020 Temperature: 36.6 (C) / 97.8 (F) 07/13/2020 Blood Pressure 1: 132/80 Code: 8480-6 Heart Rate 1: 76 bpm Respiratory Rate: 20 bpm SpO2: 97% Temperature: 36.2 (C) / 97.2 (F) We ight: 228 lbs Code: 41782-3 07/05/2020 Temperature: 35.9 (C) / 96.7 (F) 06/22/2020 Blood Pressure 1: 134/82 Code: 8480-6 Heart Rate 1: 60 bpm Respiratory Rate: 20 bpm SpO2: 96% Temperature: 36.4 (C) / 97.6 (F) We ight: 235 lbs Code: 79546-3 05/17/2020 Blood Pressure 1: 141/72 Code: 8480-6 Heart Rate 1: 78 bpm Respiratory Rate: 16 bpm SpO2: 98% Temperature: 36.3 (C) / 97.3 (F) We ight: 232 lbs Code: 36771-3 03/14/2020 Blood Pressure 1: 126/92 Code: 8480-6 Heart Rate 1: 72 bpm Respiratory Rate: 22 bpm SpO2: 96% Temperature: 36.3 (C) / 97.4 (F) We ight: 225 lbs Code: 67382-1 03/07/2020 Blood Pressure 1: 124/86 Code: 8480-6 Heart Rate 1: 72 bpm Respiratory Rate: 24 bpm SpO2: 93% Temperature: 36.2 (C) / 97.1 (F) We ight: 227 lbs Code: 64701-4 12/21/2019 Blood Pressure 1: 114/72 Code: 8480-6 BMI: 36.2 Code: 18623-0 Heart Rate 1: 60 bpm Height: 5'7" Code: 8302-2 Respiratory Rate: 20 bpm SpO2: 97% Temperature: 36.7 (C) / 98.1 (F) Weight: 231 lbs Code: 69439-8 09/02/2019 Blood Pressure 1: 138/85 Code: 8480-6 Heart Rate 1: 76 bpm Respiratory Rate: 20 bpm SpO2: 96% Temperature: 36.3 (C) / 97.3 (F) We ight: 226 lbs Code: 45502-8 07/09/2019 Blood Pressure 1: 123/63 Code: 8480-6 BMI: 34.9 Code: 21426-8 Heart Rate 1: 64 bpm Height: 5'7" Code: 8302-2 Respiratory Rate: 17 bpm SpO2: 97% Temperature: 37.0 (C) / 98.6 (F) Weight: 223 lbs Code: 73890-9 04/15/2019 Blood Pressure 1: 110/82 Code: 8480-6 Heart Rate 1: 66 bpm SpO2: 98% Temperature: 36.1 (C) / 96.9 (F) Weight: 223 lbs Code: 87321-0 04/07/2019 Blood Pressure 1: 132/80 Code: 8480-6 Heart Rate 1: 68 bpm Temperature: 36.9 (C) / 98.4 (F) Weight: 222 lbs Code: 10014-8 03/25/2019 Blood Pressure 1: 108/70 Code: 8480-6 Heart Rate 1: 64 bpm Respiratory Rate: 20 bpm SpO2: 96% Temperature: 36.2 (C) / 97.2 (F) We ight: 221 lbs Code: 19171-3 03/18/2019 Blood Pressure 1: 138/82 Code: 8480-6 Heart Rate 1: 74 bpm SpO2: 99% Temperature: 36.1 (C) / 96.9 (F) Weight: 223 lbs Code: 95067-6 01/26/2019 Blood Pressure 1: 138/90 Code: 8480-6 Heart Rate 1: 68 bpm SpO2: 96% Temperature: 35.9 (C) / 96.7 (F) Weight: 227 lbs Code: 85239-5 01/08/2019 Blood Pressure 1: 134/78 Code: 8480-6 BMI: 36.8 Code: 16501-9 Heart Rate 1: 76 bpm Height: 5'7" Code: 8302-2 SpO2: 93% Temperature: 3 6.4 (C) / 97.6 (F) Weight: 235 lbs Code: 95210-9 01/06/2019 Blood Pressure 1: 116/80 Code: 8480-6 Heart Rate 1: 72 bpm Respiratory Rate: 20 bpm SpO2: 98% Temperature: 36.5 (C) / 97.7 (F) We ight: 232 lbs Code: 71042-8 12/11/2018 Blood Pressure 1: 120/82 Code: 8480-6 BMI: 36.2 Code: 55861-0 Heart Rate 1: 67 bpm Height: 5'7" Code: 8302-2 Respiratory Rate: 18 bpm SpO2: 96% Temperature: 35.9 (C) / 96.7 (F) Weight: 231 lbs Code: 85586-5 10/30/2018 Blood Pressure 1: 126/82 Code: 8480-6 Heart Rate 1: 80 bpm Respiratory Rate: 20 bpm SpO2: 96% Temperature: 36.8 (C) / 98.3 (F) We ight: 228 lbs Code: 58087-2 10/07/2018 Blood Pressure 1: 130/90 Code: 8480-6 Heart Rate 1: 76 bpm Respiratory Rate: 24 bpm SpO2: 97% Temperature: 36.0 (C) / 96.8 (F) We ight: 229 lbs Code: 41494-3 06/23/2018 Blood Pressure 1: 132/80 Code: 8480-6 Heart Rate 1: 72 bpm Respiratory Rate: 20 bpm SpO2: 98% Temperature: 36.7 (C) / 98.0 (F) We ight: 233 lbs Code: 72246-3 01/16/2018 Blood Pressure 1: 116/82 Code: 8480-6 Heart Rate 1: 72 bpm Respiratory Rate: 20 bpm SpO2: 96% Temperature: 36.9 (C) / 98.5 (F) We ight: 230 lbs Code: 18716-0 10/16/2017 Blood Pressure 1: 116/74 Code: 8480-6 BMI: 35.1 Code: 42916-6 Heart Rate 1: 76 bpm Height: 5'7" Code: 8302-2 Respiratory Rate: 20 bpm SpO2: 98% Temperature: 36.7 (C) / 98.1 (F) Weight: 224 lbs Code: 68832-3 09/12/2017 Blood Pressure 1: 124/78 Code: 8480-6 BMI: 34.6 Code: 86481-3 Heart Rate 1: 84 bpm Height: 5'7" Code: 8302-2 Respiratory Rate: 20 bpm SpO2: 95% Temperature: 36.6 (C) / 97.8 (F) Weight: 221 lbs Code: 00193-1 08/20/2017 Blood Pressure 1: 126/78 Code: 8480-6 Heart Rate 1: 92 bpm Height: 5'7" Code: 8302-2 Respiratory Rate: 20 bpm SpO2: 96% Temperature: 36 .9 (C) / 98.5 (F) 08/13/2017 Blood Pressure 1: 124/80 Code: 8480-6 BMI: 34.8 Code: 76884-3 Heart Rate 1: 80 bpm Height: 5'7" Code: 8302-2 Respiratory Rate: 20 bpm SpO2: 96% Temperature: 36.7 (C) / 98.0 (F) Weight: 222 lbs Code: 74792-6 07/29/2017 Blood Pressure 1: 114/70 Code: 8480-6 BMI: 34.5 Code: 75059-6 Heart Rate 1: 76 bpm Height: 5'7" Code: 8302-2 Respiratory Rate: 20 bpm SpO2: 97% Temperature: 36.9 (C) / 98.4 (F) Weight: 220 lbs Code: 40553-8 07/25/2017 Blood Pressure 1: 142/76 Code: 8480-6 BMI: 34.9 Code: 07314-4 Heart Rate 1: 92 bpm Height: 5'7" Code: 8302-2 Respiratory Rate: 18 bpm SpO2: 96% Temperature: 36.7 (C) / 98.1 (F) Weight: 223 lbs Code: 18453-1 06/10/2017 Blood Pressure 1: 136/82 Code: 8480-6 BMI: 34.3 Code: 32028-4 Heart Rate 1: 68 bpm Height: 5'7" Code: 8302-2 Respiratory Rate: 20 bpm SpO2: 96% Temperature: 36.7 (C) / 98.0 (F) Weight: 219 lbs Code: 89242-4 05/28/2017 Blood Pressure 1: 136/70 Code: 8480-6 BMI: 34.1 Code: 83608-4 Heart Rate 1: 84 bpm Height: 5'7" Code: 8302-2 Respiratory Rate: 20 bpm SpO2: 95% Temperature: 35.9 (C) / 96.6 (F) Weight: 218 lbs Code: 78457-5 04/04/2017 Blood Pressure 1: 122/78 Code: 8480-6 BMI: 33.4 Code: 86193-7 Heart Rate 1: 68 bpm Height: 5'7" Code: 8302-2 Respiratory Rate: 20 bpm SpO2: 96% Temperature: 36.7 (C) / 98.0 (F) Weight: 213 lbs Code: 01790-7 11/28/2016 Blood Pressure 1: 114/82 Code: 8480-6 BMI: 33.7 Code: 81627-6 Heart Rate 1: 72 bpm Height: 5'7" Code: 8302-2 Respiratory Rate: 20 bpm SpO2: 98% Temperature: 36.4 (C) / 97.6 (F) Weight: 215 lbs Code: 87101-6 06/05/2016 Blood Pressure 1: 104/68 Code: 8480-6 BMI: 33.7 Code: 13925-0 Heart Rate 1: 68 bpm Height: 5'7" Code: 8302-2 Respiratory Rate: 20 bpm SpO2: 96% Temperature: 36.8 (C) / 98.2 (F) Weight: 215 lbs Code: 73697-3 11/08/2015 Blood Pressure 1: 122/70 Code: 8480-6 BMI: 33.8 Code: 91351-8 Heart Rate 1: 80 bpm Height: 5'7" Code: 8302-2 Respiratory Rate: 20 bpm Temperatu re: 36.8 (C) / 98.2 (F) Weight: 216 lbs Code: 84770-0 07/19/2015 Blood Pressure 1: 122/70 Code: 8480-6 BMI: 33.0 Code: 94573-5 Heart Rate 1: 80 bpm Height: 5'7" Code: 8302-2 Respiratory Rate: 18 bpm Temperatu re: 35.9 (C) / 96.6 (F) Weight: 211 lbs Code: 27677-5 03/28/2015 Blood Pressure 1: 124/70 Code: 8480-6 BMI: 31.8 Code: 97634-2 Heart Rate 1: 72 bpm Height: 5'7" Code: 8302-2 Respiratory Rate: 20 bpm Temperatu re: 36.8 (C) / 98.2 (F) Weight: 203 lbs Code: 67871-3 02/08/2015 Blood Pressure 1: 98/58 Code: 8480-6 BMI: 32.1 C ode: 43915-0 Heart Rate 1: 84 bpm Height: 5'7" Code: 8302-2 Respiratory Rate: 20 bpm Temperatu re: 36.7 (C) / 98.0 (F) Weight: 205 lbs Code: 34676-2 01/11/2015 Blood Pressure 1: 118/78 Code: 8480-6 BMI: 32.1 Code: 68675-0 Heart Rate 1: 84 bpm Height: 5'7" Code: 8302-2 Respiratory Rate: 20 bpm Temperatu re: 36.6 (C) / 97.9 (F) Weight: 205 lbs Code: 95312-0 11/24/2014 Blood Pressure 1: 124/80 Code: 8480-6 BMI: 32.0 Code: 65886-7 Heart Rate 1: 76 bpm Height: 5'7" Code: 8302-2 Respiratory Rate: 20 bpm Temperatu re: 36.2 (C) / 97.1 (F) Weight: 204 lbs Code: 63638-5 11/19/2014 Blood Pressure 1: 132/78 Code: 8480-6 BMI: 32.7 Code: 04437-8 Heart Rate 1: 68 bpm Height: 5'7" Code: 8302-2 Respiratory Rate: 20 bpm SpO2: 98% Temperature: 36.7 (C) / 98.0 (F) Weight: 209 lbs Code: 57181-7 10/27/2014 Blood Pressure 1: 118/76 Code: 8480-6 BMI: 32.6 Code: 35442-5 Heart Rate 1: 64 bpm Height: 5'7" Code: 8302-2 Respiratory Rate: 20 bpm Temperatu re: 36.7 (C) / 98.0 (F) Weight: 208 lbs Code: 13254-0 09/23/2014 Blood Pressure 1: 118/68 Code: 8480-6 BMI: 34.3 Code: 64963-2 Heart Rate 1: 78 bpm Height: 5'7" Code: 8302-2 Respiratory Rate: 22 bpm Temperatu re: 36.4 (C) / 97.6 (F) Weight: 219 lbs Code: 24007-3 07/28/2014 Blood Pressure 1: 126/80 Code: 8480-6 BMI: 33.5 Code: 11544-0 Heart Rate 1: 76 bpm Height: 5'7" Code: 8302-2 Respiratory Rate: 20 bpm Temperatu re: 36.4 (C) / 97.6 (F) Weight: 214 lbs Code: 43918-2 03/30/2014 Blood Pressure 1: 128/80 Code: 8480-6 BMI: 35.2 Code: 73628-4 Heart Rate 1: 88 bpm Height: 5'7" Code: 8302-2 Respiratory Rate: 20 bpm Temperatu re: 36.4 (C) / 97.6 (F) Weight: 225 lbs Code: 92663-3 11/24/2013 Blood Pressure 1: 124/82 Code: 8480-6 BMI: 35.6 Code: 20670-2 Heart Rate 1: 80 bpm Height: 5'7" Code: 8302-2 Respiratory Rate: 22 bpm Temperatu re: 36.2 (C) / 97.1 (F) Weight: 227 lbs Code: 56632-9 08/25/2013 Blood Pressure 1: 128/80 Code: 8480-6 BMI: 37.4 Code: 13632-6 Heart Rate 1: 76 bpm Height: 5'7" Code: 8302-2 Respiratory Rate: 20 bpm Temperatu re: 36.6 (C) / 97.9 (F) Weight: 239 lbs Code: 85100-6 06/29/2013 Blood Pressure 1: 106/78 Code: 8480-6 BMI: 38.1 Code: 01302-7 Heart Rate 1: 80 bpm Height: 5'7" Code: 8302-2 Respiratory Rate: 20 bpm Temperatu re: 36.6 (C) / 97.9 (F) Weight: 243 lbs Code: 83205-4 05/26/2013 Blood Pressure 1: 122/80 Code: 8480-6 BMI: 39.3 Code: 76832-5 Heart Rate 1: 80 bpm Height: 5'7" Code: 8302-2 Respiratory Rate: 20 bpm Temperatu re: 36.9 (C) / 98.4 (F) Weight: 251 lbs Code: 45633-2 05/06/2013 Blood Pressure 1: 128/78 Code: 8480-6 BMI: 39.2 Code: 18097-5 Heart Rate 1: 76 bpm Height: 5'7" Code: 8302-2 Respiratory Rate: 22 bpm Temperatu re: 35.8 (C) / 96.4 (F) Weight: 250 lbs Code: 80013-0 04/23/2013 Blood Pressure 1: 132/92 Code: 8480-6 BMI: 39.6 Code: 29615-6 Heart Rate 1: 88 bpm Height: 5'7" Code: 8302-2 Respiratory Rate: 28 bpm SpO2: 97% Temperature: 36.5 (C) / 97.7 (F) Weight: 253 lbs Code: 01137-3 03/31/2013 Blood Pressure 1: 122/80 Code: 8480-6 BMI: 39.0 Code: 68897-1 Heart Rate 1: 84 bpm Height: 5'7" Code: 8302-2 Respiratory Rate: 20 bpm Temperatu re: 36.6 (C) / 97.8 (F) Weight: 249 lbs Code: 40951-8 03/05/2013 Blood Pressure 1: 120/80 Code: 8480-6 BMI: 39.2 Code: 94765-9 Heart Rate 1: 60 bpm Height: 5'7" Code: 8302-2 Respiratory Rate: 22 bpm Temperatu re: 35.9 (C) / 96.6 (F) Weight: 250 lbs Code: 40715-8 02/04/2013 Blood Pressure 1: 124/80 Code: 8480-6 BMI: 38.4 Code: 92714-2 Heart Rate 1: 80 bpm Height: 5'7" Code: 8302-2 Respiratory Rate: 20 bpm Temperatu re: 36.4 (C) / 97.6 (F) Weight: 245 lbs Code: 75736-2 11/27/2012 Blood Pressure 1: 127/83 Code: 8480-6 Te mperature: 36.1 (C) / 96.9 (F) Weight: 243 lbs 2 oz Code: 72936-5 11/11/2012 Blood Pressure 1: 126/82 Code: 8480-6 BMI: 37.4 Code: 44023-4 Heart Rate 1: 80 bpm Height: 5'7" Code: 8302-2 Respiratory Rate: 20 bpm Temperatu re: 36.8 (C) / 98.2 (F) Weight: 239 lbs Code: 79326-0 10/20/2012 Blood Pressure 1: 114/80 Code: 8480-6 BMI: 37.1 Code: 21335-5 Heart Rate 1: 104 bpm Height: 5'7" Code: 8302-2 Respiratory Rate: 20 bpm Temperatu re: 36.9 (C) / 98.4 (F) Weight: 237 lbs Code: 60859-5 09/03/2012 Blood Pressure 1: 118/72 Code: 8480-6 BMI: 37.3 Code: 82117-7 Heart Rate 1: 70 bpm Height: 5'7" Code: 8302-2 Temperature: 35.6 (C) / 96.0 (F) Weight: 238 lbs Code: 25866-7 07/23/2012 Blood Pressure 1: 124/78 Code: 8480-6 BMI: 36.8 Code: 95499-9 Heart Rate 1: 68 bpm Height: 5'7" Code: 8302-2 Temperature: 35.6 (C) / 96.0 (F) Weight: 235 lbs Code: 75171-2 05/20/2012 Blood Pressure 1: 112/70 Code: 8480-6 BMI: 37.1 Code: 15769-5 Heart Rate 1: 76 bpm Height: 5'7" Code: 8302-2 Respiratory Rate: 20 bpm Temperatu re: 36.7 (C) / 98.1 (F) Weight: 237 lbs Code: 00951-1 04/04/2012 Blood Pressure 1: 110/64 Code: 8480-6 BMI: 37.1 Code: 35531-2 Heart Rate 1: 68 bpm Height: 5'7" Code: 8302-2 Temperature: 36.1 (C) / 97.0 (F) Weight: 237 lbs Code: 62528-5 02/20/2012 Blood Pressure 1: 136/78 Code: 8480-6 BMI: 37.1 Code: 17751-3 Heart Rate 1: 72 bpm Height: 5'7" Code: 8302-2 Respiratory Rate: 20 bpm Temperatu re: 36.7 (C) / 98.0 (F) Weight: 237 lbs Code: 60604-9 01/02/2012 Blood Pressure 1: 122/70 Code: 8480-6 BMI: 37.1 Code: 38534-9 Heart Rate 1: 76 bpm Height: 5'7" Code: 8302-2 Respiratory Rate: 20 bpm Temperatu re: 37.0 (C) / 98.6 (F) Weight: 237 lbs Code: 79483-9 09/04/2011 Blood Pressure 1: 120/84 Code: 8480-6 BMI: 35.4 Code: 32201-8 Heart Rate 1: 68 bpm Height: 5'7" Code: 8302-2 Temperature: 30.0 (C) / 86.0 (F) Weight: 226 lbs Code: 24343-4 08/14/2011 Blood Pressure 1: 120/82 Code: 8480-6 BMI: 36.5 Code: 39901-7 Heart Rate 1: 80 bpm Height: 5'7" Code: 8302-2 Temperature: 36.6 (C) / 97.8 (F) Weight: 233 lbs Code: 36722-0 07/31/2011 Blood Pressure 1: 138/86 Code: 8480-6 BMI: 37.0 Code: 36248-4 Heart Rate 1: 94 bpm Height: 5'7" Code: 8302-2 Temperature: 35.4 (C) / 95.7 (F) Weight: 236 lbs Code: 87417-1 07/25/2011 Blood Pressure 1: 128/80 Code: 8480-6 BMI: 37.0 Code: 93206-8 Heart Rate 1: 80 bpm Height: 5'7" Code: 8302-2 Temperature: 35.6 (C) / 96.0 (F) Weight: 236 lbs Code: 60351-2 07/12/2011 Blood Pressure 1: 132/80 Code: 8480-6 BMI: 37.0 Code: 12432-7 Heart Rate 1: 96 bpm Height: 5'7" Code: 8302-2 Respiratory Rate: 20 bpm Temperatu re: 36.3 (C) / 97.3 (F) Weight: 236 lbs Code: 24174-1 05/09/2011 Blood Pressure 1: 106/78 Code: 8480-6 BMI: 36.6 Code: 47520-6 Heart Rate 1: 72 bpm Height: 5'7" Code: 8302-2 Respiratory Rate: 20 bpm Temperatu re: 36.4 (C) / 97.6 (F) Weight: 234 lbs Code: 20656-2 05/02/2011 Blood Pressure 1: 96/72 Code: 8480-6 BMI: 36.6 C ode: 12406-1 Heart Rate 1: 108 bpm Height: 5'7" Code: 8302-2 Respiratory Rate: 24 bpm Temperatu re: 36.7 (C) / 98.0 (F) Weight: 234 lbs Code: 91865-8 04/25/2011 Blood Pressure 1: 120/72 Code: 8480-6 BMI: 36.5 Code: 60754-2 Heart Rate 1: 70 bpm Height: 5'7" Code: 8302-2 Temperature: 36.7 (C) / 98.0 (F) Weight: 233 lbs Code: 51773-7 04/04/2011 Blood Pressure 1: 126/92 Code: 8480-6 BMI: 36.5 Code: 08791-2 Heart Rate 1: 84 bpm Height: 5'7" Code: 8302-2 Respiratory Rate: 20 bpm Temperatu re: 36.2 (C) / 97.2 (F) Weight: 233 lbs Code: 62645-6 03/01/2011 Blood Pressure 1: 132/78 Code: 8480-6 Heart Rate 1: 88 bpm Temperature: 36.8 (C) / 98.2 (F) Weight: 231 lbs Code: 26774-4 01/04/2011 Blood Pressure 1: 122/78 Code: 8480-6 BMI: 37.0 Code: 52155-8 Heart Rate 1: 80 bpm Height: 5'7" Code: 8302-2 Temperature: 37.0 (C) / 98.6 (F) Weight: 236 lbs Code: 93764-9 12/07/2010 Blood Pressure 1: 132/92 Code: 8480-6 Heart Rate 1: 98 bpm Temperature: 36.2 (C) / 97.2 (F) Weight: 237 lbs Code: 71044-4 10/09/2010 Blood Pressure 1: 128/80 Code: 8480-6 Heart Rate 1: 72 bpm Temperature: 36.5 (C) / 97.7 (F) Weight: 244 lbs Code: 57528-8 08/07/2010 Blood Pressure 1: 114/80 Code: 8480-6 Heart Rate 1: 72 bpm Temperature: 36.2 (C) / 97.1 (F) Weight: 245 lbs Code: 79352-7 06/06/2010 Blood Pressure 1: 132/86 Code: 8480-6 Heart Rate 1: 80 bpm Temperature: 36.8 (C) / 98.2 (F) Weight: 242 lbs Code: 86552-8 04/12/2010 Blood Pressure 1: 126/82 Code: 8480-6 Heart Rate 1: 72 bpm Temperature: 36.8 (C) / 98.2 (F) Weight: 237 lbs Code: 96277-5 03/20/2010 Blood Pressure 1: 124/78 Code: 8480-6 Heart Rate 1: 76 bpm Temperature: 36.1 (C) / 97.0 (F) Weight: 239 lbs Code: 53611-8 01/30/2010 Blood Pressure 1: 118/80 Code: 8480-6 Heart Rate 1: 84 bpm Temperature: 37.1 (C) / 98.7 (F) Weight: 239 lbs Code: 23749-3 01/09/2010 Blood Pressure 1: 120/72 Code: 8480-6 BMI: 36.8 Code: 21062-8 Heart Rate 1: 80 bpm Height: 5'7" Code: 8302-2 Temperature: 36.1 (C) / 97.0 (F) Weight: 235 lbs Code: 08255-1 11/07/2009 Blood Pressure 1: 140/36 Cod e: 8480-6 10/26/2009 Blood Pressure 1: 126/82 Code: 8480-6 BMI: 36.9 Code: 91032-0 Heart Rate 1: 84 bpm Height: 5'7" Code: 8302-2 Temperature: 36.5 (C) / 97.7 (F) Weight: 234 lbs Code: 13966-1 10/17/2009 Blood Pressure 1: 140/88 Code: 8480-6 BMI: 36.3 Code: 01318-3 Heart Rate 1: 88 bpm Height: 5'7" Code: 8302-2 Temperature: 36.7 (C) / 98.0 (F) Weight: 232 lbs Code: 97462-0 10/04/2009 Blood Pressure 1: 140/90 Code: 8480-6 BMI: 36.3 Code: 05982-4 Heart Rate 1: 84 bpm Height: 5'7" Code: 8302-2 Temperature: 36.4 (C) / 97.6 (F) Weight: 232 lbs Code: 02687-3 09/21/2009 Blood Pressure 1: 136/82 Code: 8480-6 BMI: 36.3 Code: 71931-1 Heart Rate 1: 88 bpm Height: 5'7" Code: 8302-2 Temperature: 35.8 (C) / 96.4 (F) Weight: 232 lbs Code: 29811-5 Functional Status No Functional Status data Reason [...] 09/04/2011 chest congestion 09/04/2011 follow up 08/14/2011 [facility] 08/14/2011 venous thrombosis 08/14/2011 abdominal [...] Encounter Performer Location Location Address Codes Date ([id number]) OFFICE/OUTPATIENT VISIT EST Diagnosis: Acute cystitis[ICD10: N30.00] Marlene Kenyonverenice Sanchez [facility] [employer] [address] [place] [id number] CPT-4: 85266 09/05/2022 ([id number]) OFFICE/OUTPATIENT VISIT EST Diagnosis: Degeneration of lumbar or lumbosacral intervertebral disc[ICD10: M51.37] Diagnosis: Cervicalgia[ICD10: M54.2] Marlene Kenyonverenice ELAM [employer] [address] [place] [phone] CPT-4: 19804 08/30/2022 ([id number]) OFFICE/OUTPATIENT VISIT EST Diagnosis: Hypothyroidism[ICD10: E03.9] Diagnosis: Essential (primary) hypertension[ICD10: I10] Diagnosis: Mixed hyperlipidemia[ICD10: E78.2] Diagnosis: Stress at home[ICD10: F43.9] Jayna Sanchez JESSICAMARIALUISA [employer] [address] [place] [address] CPT-4: 09962 08/07/2022 ([id number]) OFFICE/OUTPATIENT VISIT EST Diagnosis: Acute cystitis[ICD10: N30.00] Marlene Kenyonverenice Sanchez JESSICAMARIALUISA [employer] [address] [place] [address] CPT-4: 59682 06/29/2022 ([id number]) OFFICE/OUTPATIENT VISIT EST Diagnosis: Depression[ICD10: F32.A] Diagnosis: Hypothyroidism[ICD10: E03.9] Jayna Sanchez JANISAPOLINAR [employer] [address] [place] [address] CPT-4: 98859 05/28/2022 ([id number]) OFFICE/OUTPATIENT VISIT EST Diagnosis: Depression[ICD10: F32.A] Diagnosis: Fatigue[ICD10: R53.83] Diagnosis: Hypothyroidism[ICD10: E03.9] Diagnosis: Hyperglycemia[ICD10: R73.9] Jayna PUCKETT [address] [address] CPT-4: 46883 05/10/2022 ([id number]) OFFICE/OUTPATIENT VISIT EST Diagnosis: Migraine, intractable[ICD10: G43.919] Marlene Kenyonverenice EZEQUIEL BRUCE[address] [address] CPT-4: 95446 04/18/2022 ([id number]) NURSE/OUTPATIENT VISIT EST Diagnosis: FLU VACCINE[ICD10: Z23] Jayna JIANG [address] [address] CPT-4: 52125 04/05/2022 ([id number]) OFFICE/OUTPATIENT VISIT EST Diagnosis: Allergic rhinitis[ICD10: J30.9] Diagnosis: Acute sinusitis[ICD10: J01.90] 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] Jayna VANESSA [address] [address] CPT-4: 46694 02/15/2022 ([id number]) Annual depression screening, 15 minutes Diagnosis: Encounter for general adult medical examination without abnormal findings[ICD10: Z00.00] Diagnosis: Essential (primary) hypertension[ICD10: I10] Diagnosis: Mixed hyperlipidemia[ICD10: E78.2] Diagnosis: Hypothyroidism, unspecified[ICD10: E03.9] Diagnosis: Chronic obstructive pulmonary disease, unspecified[ICD10: J44.9] Jayna [address] [address] CPT-4: G0444 02/06/2022 ([id number]) OFFICE/OUTPATIENT VISIT EST Diagnosis: 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] Diagnosis: Vision changes[ICD10: H53.9] Latasha VANESSA DO [address] [address] CPT-4: 77972 02/01/2022 ([id number]) OFFICE/OUTPATIENT VISIT EST Diagnosis: Diarrhea[ICD10: R19.7] Diagnosis: Cough[ICD10: R05.9] Jayna MORILLOLINE Daniel VANESSA DO [address] [address] CPT-4: 80500 11/30/19 ([id number]) OFFICE/OUTPATIENT VISIT EST Diagnosis: Post-viral cough syndrome[ICD10: R05.8] Diagnosis: Otalgia of both ears[ICD10: H92.03] Diagnosis: Diarrhea[ICD10: R19.7] Jayna GUTIERREZ TracyPaige BIANCA Villalba DO [address] [address] CPT-4: 16490 11/22/2021 ([id number]) OFFICE/OUTPATIENT VISIT EST Diagnosis: Diarrhea of presumed infectious origin[ICD10: R19.7] Diagnosis: Altered taste[ICD10: R43.2] Diagnosis: Chronic bronchitis[ICD10: J42] Diagnosis: History of recent pneumonia[ICD10: Z87.01] Latasha VANESSA DO [address] [address] CPT- 4: 52854 11/21/2021 ([id number]) OFFICE/OUTPATIENT VISIT EST Diagnosis: Serous otitis media[ICD10: H65.90] Diagnosis: Postnasal drip[ICD10: R09.82] Diagnosis: Pneumonia[ICD10: J18.9] Jayna Jessicamarialuisa GUTIERREZ TracyPaige JANIS ER DO [address] [address] CPT-4: 62878 11/09/2021 ([id number]) NO CHARGE Diagnosis: Pneumonia[ICD10: J18.9] Diagnosis: Respiratory distress[ICD10: R06.03] Jayna KENNEY TracyPaige JANISER DO [address] [address] CPT-4: 50151 10/31/2021 ([id number]) OFFICE/OUTPATIENT VISIT EST Diagnosis: Vertigo[ICD10: R42] Diagnosis: Nausea[ICD10: R11.0] Diagnosis: Pneumonia[ICD10: J18.9] Jayna [facility] [address] [place] [address] CPT-4: 80428 10/30/2021 ([id number]) OFFICE/OUTPATIENT VISIT EST Diagnosis: Cervicalgia[ICD10: M54.2] Jayna GREEN[facility]G [facility] [address] [place] [address] CPT-4: 40842 09/05/2021 ([id number]) OFFICE/OUTPATIENT VISIT EST Diagnosis: 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] Diagnosis: Seronegative rheumatoid arthritis[ICD10: M06.00] Latasha Castillomarthahoa VANESSA DO [address] [address] CPT- 4: 44180 08/24/2021 ([id number]) OFFICE/OUTPATIENT VISIT EST Diagnosis: Upper respiratory infection[ICD10: J06.9] Diagnosis: Contact with and (suspected) exposure to other viral communicable diseases[ICD10: Z20.828] Latasha Castillomatthew JAYNA VANESSA DO [address] [address] CPT-4: 88832 07/04/2021 ([id number]) NURSE/OUTPATIENT VISIT EST Diagnosis: FLU VACCINE[ICD10: Z23] Jayna [facility] [address] [place] [address] CPT-4: 96905 03/29/2021 ([id number]) OFFICE/OUTPATIENT VISIT EST Diagnosis: Vasovagal episode[ICD10: R55] Diagnosis: Orthostatic hypotension[ICD10: I95.1] Latasha Castillomatthew EZEQUIEL BRUCEER DO [address] [address] CPT-4: 13871 03/01/2021 ([id number]) OFFICE/OUTPATIENT VISIT EST Diagnosis: Sebaceous cyst of right axilla[ICD10: L72.3] Latasha VANESSA [address] [address] CPT- 4: 99785 02/08/2021 ([id number]) OFFICE/OUTPATIENT VISIT EST Diagnosis: Contact dermatitis[ICD10: L25.9] Jayna MORILLOLINE Daniel VANESSA DO [address] [address] CPT-4: 95830 01/19/2021 ([id number]) OFFICE/OUTPATIENT VISIT EST Diagnosis: Upper respiratory infection[ICD10: J06.9] Diagnosis: COPD exacerbation[ICD10: J44.1] Latasha VANESSA [address] [address] CPT-4: 83268 11/29/2020 ([id number]) OFFICE/OUTPATIENT VISIT EST Diagnosis: Sinusitis[ICD10: J32.9] Diagnosis: Acute pansinusitis, recurrence not specified[ICD10: J01.40] Latasha VANESSA DO [address] [address] CPT-4: 87942 09/29/2020 OFFICE/OUTPATIENT VISIT EST Diagnosis: Other seasonal allergic rhinitis[ICD10: J30.2] Diagnosis: Chronic bronchitis[ICD10: J42] Diagnosis: 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] Diagnosis: Middle ear effusion[ICD10: H65.90] Diagnosis: Fluid level behind tympanic membrane of both ears[ICD10: H65.93] Latasha VANESSA DO [address] [address] CPT-4: 97646 09/19/2020 ([id number]) OFFICE/OUTPATIENT VISIT EST Diagnosis: Right-sided tinnitus[ICD10: H93.11] Jayna KENNEY Daniel VANESSA [address] [address] CPT-4: 68321 08/10/2020 ([id number]) OFFICE/OUTPATIENT VISIT EST Diagnosis: Dysfunction of right eustachian tube[ICD10: H69.81] Diagnosis: Right-sided tinnitus[ICD10: H93.11] [facility] [address] [place] [address] CPT-4: 60966 2020 ([id number]) OFFICE/OUTPATIENT VISIT EST Diagnosis: Pyelonephritis[ICD10: N12] Diagnosis: Anemia[ICD10: D64.9] Diagnosis: Blood in stool[ICD10: K92.1] Jayna VANESSA [address] [address] CPT-4: 81000 07/13/2020 ([id number]) OFFICE/OUTPATIENT VISIT EST Diagnosis: Acute gastroenteritis[ICD10: K52.9] Jayna MORILLOAlecia VANESSA [address] [address] CPT-4: 76890 07/05/2020 ([id number]) OFFICE/OUTPATIENT VISIT EST Diagnosis: Essential hypertension[ICD10: I10] Diagnosis: Hypothyroidism, unspecified[ICD10: E03.9] Diagnosis: Metabolic syndrome[ICD10: E88.81] Diagnosis: Mixed hyperlipidemia[ICD10: E78.2] Diagnosis: 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] Jayna VANESSA [address] [address] CPT- 4: 34602 06/22/2020 ([id number]) OFFICE/OUTPATIENT VISIT EST Diagnosis: Urinary tract infection[ICD10: N39.0] Jayna CLARKCOLETTE VANESSA [address] [address] CPT-4: 90566 05/17/2020 ([id number]) OFFICE/OUTPATIENT VISIT EST Diagnosis: Right pulmonary embolus[ICD10: I26.99] Jayna StonerBUZZ VANESSA [facility] [address] [place] [address] CPT-4: 03016 03/14/2020 ([id number]) OFFICE/OUTPATIENT VISIT EST Diagnosis: COVID-19[ICD10: U07.1] Diagnosis: Pneumonia[ICD10: J18.9] Diagnosis: Dyspnea[ICD10: R06.00] Jayna Oremarialuisa GUTIERREZ TracyPaige BIANCA Villalba DO [facility] [address] [place] [address] CPT-4: 89270 03/07/2020 ([id number]) OFFICE/OUTPATIENT VISIT EST Diagnosis: Upper respiratory infection[ICD10: J06.9] Genesis Fernández Wanda RODRIGUE VANESSA [address] [address] CPT-4: 27961 02/11/2020 ([id number]) OFFICE/OUTPATIENT VISIT EST Diagnosis: Dermatitis[ICD10: L30.9] Diagnosis: Urticaria[ICD10: L50.9] Jayna Vanessa [facility] [address] [place] [address] CPT-4: 01368 09/29/2019 ([id number]) OFFICE/OUTPATIENT VISIT EST Diagnosis: Bone spur of right foot[ICD10: M77.51] Diagnosis: Recurrent UTI[ICD10: N39.0] Diagnosis: MRSA (methicillin resistant staph aureus) culture positive[ICD10: Z22.322] Jayna Vanessa [facility] [address] [place] [address] CPT-4: 52572 09/14/2019 ([id number]) NURSE/OUTPATIENT VISIT EST Diagnosis: Urinary tract infection[ICD10: N39.0] Jayna Jessicamarialuisa GERBER TracyPaige JESSICASHONAAPOLINAR [address] [address] CPT-4: 24649 09/11/2019 ([id number]) NURSE/OUTPATIENT VISIT EST Diagnosis: Urinary tract infection, site not specified[ICD10: N39.0] Jayna GUTIERREZ TracyPaige VANESSA DO [address] [address] CPT-4: 92283 09/08/2019 ([id number]) NURSE/OUTPATIENT VISIT EST Diagnosis: Urinary tract infection, site not specified[ICD10: N39.0] Jayna GREENBERGNDAPOLINAR DO [address] [address] CPT-4: 42642 09/07/2019 ([id number]) OFFICE/OUTPATIENT VISIT EST Diagnosis: Pelvic pain in female[ICD10: R10.2] Diagnosis: Urinary frequency[ICD10: R35.0] Genesis VANESSA DO [address] [address] CPT-4: 32913 09/02/2019 ([id number]) OFFICE/OUTPATIENT VISIT EST Diagnosis: Sinusitis[ICD10: J32.9] Genesis BRUCE ER DO [address] [address] CPT-4: 43064 07/09/2019 ([id number]) OFFICE/OUTPATIENT VISIT EST Diagnosis: UTI (urinary tract infection)[ICD10: N39.0] Diagnosis: FLU VACCINE[ICD10: Z23] Genesis BRUCE ER DO [address] [address] CPT-4: 08861 04/15/2019 ([id number]) OFFICE/OUTPATIENT VISIT EST Diagnosis: Pain in right leg[ICD10: M79.604] Genesis BRUCEER DO [address] [address] CPT-4: 12014 04/07/2019 ([id number]) OFFICE/OUTPATIENT VISIT EST Diagnosis: Diverticulitis of large intestine without perforation or abscess without bleeding[ICD10: K57.32] Diagnosis: Cystitis[ICD10: N30.90] Jayna BRUCE ER DO [address] [address] CPT-4: 66513 03/25/2019 ([id number]) OFFICE/OUTPATIENT VISIT EST Diagnosis: Abdominal pain[ICD10: R10.9] Diagnosis: Cystitis[ICD10: N30.90] Jayna JIANG DO [address] [address] CPT-4: 82182 03/18/2019 ([id number]) OFFICE/OUTPATIENT VISIT EST Diagnosis: Diverticulitis of large intestine without perforation or abscess without bleeding[ICD10: K57.32] Diagnosis: Generalized abdominal pain[ICD10: R10.84] Diagnosis: Urinary tract infection, site not specified[ICD10: N39.0] Genesis VANESSA DO [address] [address] CPT-4: 70380 01/26/2019 ([id number]) OFFICE/OUTPATIENT VISIT EST Diagnosis: Mild intermittent asthma with (acute) exacerbation[ICD10: J45.21] Diagnosis: Allergic rhinitis due to pollen[ICD10: J30.1] Jayna VANESSA DO [address] [address] CPT- 4: 68895 01/08/2019 ([id number]) OFFICE/OUTPATIENT VISIT EST Diagnosis: Mild intermittent asthma with (acute) exacerbation[ICD10: J45.21] Diagnosis: URI, ACUTE[ICD10: J06.9] Diagnosis: Urinary tract infection, site not specified[ICD10: N39.0] Jayna VANESSA DO [address] [address] CPT-4: 50733 01/06/2019 ([id number]) OFFICE/OUTPATIENT VISIT EST Diagnosis: Benign paroxysmal vertigo, bilateral[ICD10: H81.13] Diagnosis: Migraine without aura, not intractable, without status migrainosus[ICD10: G43.009] Jayna VANESSA DO [address] [address] CPT-4: 19791 10/30/2018 ([id number]) OFFICE/OUTPATIENT VISIT EST Diagnosis: Acute bronchitis, unspecified[ICD10: J20.9] Diagnosis: Cough[ICD10: R05] Diagnosis: Other seasonal allergic rhinitis[ICD10: J30.2] Stacey MORILLOLINE Daniel GREENBERGNDER DO [employer] [address] [place] [address] CPT- 4: 77746 10/07/2018 ([id number]) OFFICE/OUTPATIENT VISIT EST Diagnosis: Pain in unspecified joint[ICD10: M25.50] Diagnosis: Pain in right ankle and joints of right foot[ICD10: M25.571] Diagnosis: Other specified disorders of bone density and structure, unspecified site[ICD10: M85.80] Jayna GUTIERREZ Daniel GREENBERGNDER DO [employer] [address] [place] [address] CPT-4: 49875 06/23/2018 ([id number]) OFFICE/OUTPATIENT VISIT EST Diagnosis: Hypothyroidism, unspecified[ICD10: E03.9] Diagnosis: Mixed hyperlipidemia[ICD10: E78.2] Jayna ALVARENGA SPaige GREENBERGNDER DO [employer] [address] [place] [address] CPT-4: 37129 01/16/2018 ([id number]) OFFICE/OUTPATIENT VISIT EST Diagnosis: Cervicalgia[ICD10: M54.2] Genesis Francoisdi JAYNA Daniel GREENBERG NDER DO [employer] [address] [place] [address] CPT-4: 55499 10/16/2017 ([id number]) OFFICE/OUTPATIENT VISIT EST Diagnosis: Headache[ICD10: R51] Diagnosis: Dizziness and giddiness[ICD10: R42] Jayna KENNEY SPaige GREENBERGNDER DO [employer] [address] [place] [address] CPT-4: 46501 09/12/2017 OFFICE/OUTPATIENT VISIT EST Diagnosis: Cough[ICD10: R05] Genesis Fernández JAYNA SPaige GREENBERGNDER DO [employer] [address] [place] [address] CPT-4: 98506 08/20/2017 ([id number]) OFFICE/OUTPATIENT VISIT EST Diagnosis: COUGH[ICD10: R05] Jayna VANESSA DO [address] [address] CPT-4: 63546 08/13/19 ([id number]) OFFICE/OUTPATIENT VISIT EST Diagnosis: Acute bronchospasm[ICD10: J98.01] Jayna VANESSA [address] [address] CPT-4: 67045 07/29/2017 OFFICE/OUTPATIENT VISIT EST Diagnosis: Influenza due to identified novel influenza A virus with other respiratory manifestations[ICD10: J09.X2] Genesis VANESSA DO [address] [address] CPT-4: 22131 07/25/2017 ([id number]) OFFICE/OUTPATIENT VISIT EST Diagnosis: Pain in unspecified joint[ICD10: M25.50] Jayna VANESSA DO [address] [address] CPT- 4: 90324 06/10/2017 OFFICE/OUTPATIENT VISIT EST Diagnosis: Acute bronchitis, unspecified[ICD10: J20.9] Genesis VANESSA DO [address] [address] CPT- 4: 82924 05/28/2017 ([id number]) OFFICE/OUTPATIENT VISIT EST Diagnosis: Hypothyroidism, unspecified[ICD10: E03.9] Diagnosis: Mixed hyperlipidemia[ICD10: E78.2] Diagnosis: Wyoui-7-kmaminehios 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] Diagnosis: Sebaceous cyst[ICD10: L72.3] Jayna VANESSA DO [address] [address] CPT-4: 27503 11/28/2016 ([id number]) OFFICE/OUTPATIENT VISIT EST Diagnosis: Right upper quadrant pain[ICD10: R10.11] Diagnosis: Epigastric pain[ICD10: R10.13] Jayna VANESSA DO [employer] [address] [place] [address] CPT-4: 57353 06/05/2016 ([id number]) OFFICE/OUTPATIENT VISIT EST Diagnosis: FLU VACCINE[ICD10: Z23] Jayna BRUCE ER DO [address] [address] CPT-4: 07247 05/01/2016 OFFICE/OUTPATIENT VISIT EST Diagnosis: Hypothyroidism, unspecified[ICD10: E03.9] Diagnosis: Type 1 diabetes mellitus without complications[ICD10: E10.9] Diagnosis: Mixed hyperlipidemia[ICD10: E78.2] Diagnosis: Essential (primary) hypertension[ICD10: I10] Diagnosis: Mixed incontinence[ICD10: N39.46] Jayna Jessicamarialuisa IGLESIA Martha VANESSA DO [employer] [address] [place] [address] CPT-4: 14645 11/08/2015 ([id number]) OFFICE/OUTPATIENT VISIT EST Diagnosis: Hypothyroidism, unspecified[ICD10: E03.9] Diagnosis: Other fatigue[ICD10: R53.83] Jayna VANESSA DO [address] [address] CPT-4: 62465 07/19/2015 ([id number]) OFFICE/OUTPATIENT VISIT EST Diagnosis: Hypothyroidism, unspecified[ICD10: E03.9] Diagnosis: Mixed hyperlipidemia[ICD10: E78.2] Diagnosis: Metabolic syndrome[ICD10: E88.81] Diagnosis: Right lower quadrant abdominal tenderness[ICD10: R10.813] Diagnosis: FLU VACCINE[ICD10: Z23] Jayna BRUCE ER DO [employer] [address] [place] [address] CPT-4: 57355 03/28/2015 ([id number]) OFFICE/OUTPATIENT VISIT EST Diagnosis: MALAISE AND FATIGUE[ICD9: 780.79] Diagnosis: DEPRESSIVE DISORDER NEC[ICD9: 311] Diagnosis: HYPOTHYROIDISM[ICD9: 244.9] Diagnosis: PNEUMOCOCCAL VACCINE[ICD10: Z23] Jaynaparam VANESSA [address] [address] CPT-4: 54814 02/08/2015 ([id number]) OFFICE/OUTPATIENT VISIT EST Diagnosis: MALAISE AND FATIGUE[ICD9: 780.79] Diagnosis: DEPRESSIVE DISORDER NEC[ICD9: 311] Diagnosis: HYPOTHYROIDISM[ICD9: 244.9] Diagnosis: ARTHRALGIA-MULTIPLE SITES[ICD9: 719.49] Jayna VANESSA [address] [address] CPT-4: 35245 01/11/2015 ([id number]) OFFICE/OUTPATIENT VISIT EST 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] Diagnosis: - I - HYPOTHYROIDISM[ICD9: 244.9] Diagnosis: COUGH[ICD10: R05] Diagnosis: ALLERGIC RHINITIS[ICD9: 477.9] Diagnosis: Lumbar degenerative disc disease[ICD9: 722.52] Jayna MORILLOLINE TracyPaige ANDIE [address] [address] CPT- 4: 38303 11/24/2014 ([id number]) OFFICE/OUTPATIENT VISIT EST Diagnosis: Allergic reaction[ICD9: 995.3] Galina Leos JAYNA Molina Paige ANDIE [address] [address] CPT-4: 04454 11/19/2014 ([id number]) OFFICE/OUTPATIENT VISIT EST Diagnosis: ALLERGIC RHINITIS[ICD9: 477.9] Diagnosis: WHEEZING[ICD9: 786.07] Diagnosis: URINARY TRACT INFECTION[ICD9: 599.0] Diagnosis: Right flank pain[ICD9: 789.09] Conchita VILLARREALQUELINE Tracy Paige ANDIE [address] [address] CPT-4: 70929 10/27/2014 ([id number]) OFFICE/OUTPATIENT VISIT EST Diagnosis: URINARY TRACT INFECTION[ICD9: 599.0] Diagnosis: Flank pain[ICD9: 789.09] Conchita GUTIERREZ Tracy. MOOK EMMA DO [address] [address] CPT-4: 27031 09/23/2014 ([id number]) OFFICE/OUTPATIENT VISIT EST Diagnosis: HYPERTENSION[ICD9: 401.9] Diagnosis: - I - HYPOTHYROIDISM[ICD9: 244.9] Diagnosis: HYPERLIPIDEMIA NEC/NOS[ICD9: 272.4] Diagnosis: DYSMETABOLIC SYNDROME X[ICD9: 277.7] Jayna QUEZADA SPaige ORENDER DO [address] [address] CPT-4: 01086 07/28/2014 OFFICE/OUTPATIENT VISIT EST Diagnosis: HYPERTENSION[ICD9: 401.9] Diagnosis: GROSS HEMATURIA[ICD9: 599.71] Jayna GUTIERREZ SPaige ORENDER DO [address] [address] CPT-4: 47041 03/30/2014 ([id number]) OFFICE/OUTPATIENT VISIT EST 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] Diagnosis: - I - HYPOTHYROIDISM[ICD9: 244.9] Diagnosis: HYPERLIPIDEMIA NEC/NOS[ICD9: 272.4] Diagnosis: HYPERTENSION[ICD9: 401.9] Jayna GUTIERREZ SPaige ORE NDEDeejay DO [address] [address] CPT-4: 91884 11/24/2013 ([id number]) OFFICE/OUTPATIENT VISIT EST 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] Diagnosis: HYPERLIPIDEMIA NEC/NOS[ICD9: 272.4] Diagnosis: HYPOTHYROIDISM[ICD9: 244.9] Jayna GUTIERREZ SPaige O RENDER DO [address] [address] CPT-4: 52647 08/25/2013 OFFICE/OUTPATIENT VISIT EST Diagnosis: DEPRESSIVE DISORDER NEC[ICD9: 311] Jayna Sanchez ORENDER DO [address] [address] CPT-4: 87598 06/29/2013 OFFICE/OUTPATIENT VISIT EST Diagnosis: DEPRESSIVE DISORDER NEC[ICD9: 311] Jayna VILLARREALOTTO VANESSA [address] [address] CPT-4: 26474 05/26/2013 ([id number]) OFFICE/OUTPATIENT VISIT EST Diagnosis: BRONCHITIS, ACUTE[ICD9: 466.0] Diagnosis: HYPOTHYROIDISM[ICD9: 244.9] Diagnosis: HYPERLIPIDEMIA NEC/NOS[ICD9: 272.4] Diagnosis: Shoulder pain[ICD9: 719.41] Jayna MORILLOLINE Daniel PUCKETT DO [address] [address] CPT-4: 44676 05/06/2013 ([id number]) OFFICE/OUTPATIENT VISIT EST Diagnosis: BRONCHITIS, ACUTE[ICD9: 466.0] Diagnosis: SINUSITIS, ACUTE[ICD9: 461.9] Jayna MORILLOLINE Daniel VANESSA [address] [address] CPT-4: 38212 04/23/2013 ([id number]) OFFICE/OUTPATIENT VISIT EST Diagnosis: DYSPNEA[ICD9: 786.09] Diagnosis: EDEMA[ICD9: 782.3] Diagnosis: [id number] DEFICIENCY[ICD9: 273.4] Diagnosis: COUGH[ICD9: 786.2] Jayna MORILLOLINE Daniel VANESSA [address] [address] CPT-4: 15300 03/31/20 OFFICE/OUTPATIENT VISIT EST Diagnosis: Chest pain[ICD9: 786.50] Diagnosis: ANXIETY STATE NOS[ICD9: 300.00] Conchita Liborio JAYNA VANESSA [address] [address] CPT-4: 38483 03/05/2013 ([id number]) OFFICE/OUTPATIENT VISIT EST Diagnosis: HYPERLIPIDEMIA NEC/NOS[ICD9: 272.4] Diagnosis: HYPOTHYROIDISM[ICD9: 244.9] Diagnosis: Uwfer-7-nildxruurri deficiency[ICD9: 273.4] Diagnosis: ALLERGIC RHINITIS[ICD9: 477.9] Jayna MORILLOLINE rTacy VANESSA [address] [address] CPT-4: 69022 02/04/2013 ([id number]) OFFICE/OUTPATIENT VISIT EST Diagnosis: COUGH[ICD9: 786.2] Diagnosis: ALLERGIC RHINITIS[ICD9: 477.9] Jayna VANESSA DO [address] [address] CPT-4: 53316 11/27/2012 ([id number]) OFFICE/OUTPATIENT VISIT EST Diagnosis: COUGH[ICD9: 786.2] Diagnosis: DYSPNEA[ICD9: 786.09] Jayna VANESSA DO [address] [address] CPT-4: 71103 11/11/2012 ([id number]) OFFICE/OUTPATIENT VISIT EST Diagnosis: ABDOMINAL PAIN[ICD9: 789.00] Diagnosis: DIARRHEA[ICD9: 787.91] Diagnosis: COUGH[ICD9: 786.2] Jayna VANESSA [address] [address] CPT-4: 90581 10/21/19 OFFICE/OUTPATIENT VISIT EST Diagnosis: COUGH[ICD9: 786.2] Diagnosis: SINUSITIS, ACUTE[ICD9: 461.9] Diagnosis: PHARYNGITIS, ACUTE[ICD9: 462] Jayna VANESSA [address] [address] CPT-4: 22856 09/03/2012 OFFICE/OUTPATIENT VISIT EST Diagnosis: ABDOMINAL PAIN[ICD9: 789.00] Diagnosis: Diarrhea[ICD9: 787.91] Jayna Villalba [address] [address] CPT-4: 86328 07/23/2012 ([id number]) OFFICE/OUTPATIENT VISIT EST Diagnosis: DM 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 TYPE II, UNCONTROLLED[ICD9: 250.02] Diagnosis: HYPERLIPIDEMIA NEC/NOS[ICD9: 272.4] Diagnosis: GERD[ICD9: 530.81] Jayna MORILLOLINE TracyPaige JESSICANDER DO [address] [address] CPT-4: 90889 05/20/20 12 OFFICE/OUTPATIENT VISIT EST Diagnosis: DERMATITIS NOS[ICD9: 692.9] Galinalexie GUTIERREZ TracyPaige Helga ITALO DO [address] [address] CPT-4: 48161 04/04/2012 ([id number]) OFFICE/OUTPATIENT VISIT EST Diagnosis: HYPERLIPIDEMIA NEC/NOS[ICD9: 272.4] Diagnosis: HYPOTHYROIDISM[ICD9: 244.9] Diagnosis: DYSMETABOLIC SYNDROME X[ICD9: 277.7] Jayna Jessicamarialuisa QUEZADA TracyPaige JESSICANDER DO [address] [address] CPT-4: 70730 01/02/2012 OFFICE/OUTPATIENT VISIT EST Diagnosis: COUGH[ICD9: 786.2] Diagnosis: SINUSITIS, ACUTE[ICD9: 461.9] Lizzie VILLARREALQUELINE TracyPaige JESSICANDER DO [address] [address] CPT-4: 41926 09/04/2011 OFFICE/OUTPATIENT VISIT EST Diagnosis: Diverticulitis[ICD9: 562.11] Diagnosis: THROMBOPHLEBITIS[ICD9: 451.9] Jayna Jessicashonaapolinar JAYNA TracyPaige JESSICANDER DO [address] [address] CPT-4: 24139 08/14/2011 OFFICE/OUTPATIENT VISIT EST Diagnosis: COUGH[ICD9: 786.2] Jayna Jessicashonaapolinar JAYNA TracyPaige JESSICANDER DO [address] [address] CPT-4: 41162 07/25/19 OFFICE/OUTPATIENT VISIT EST Diagnosis: HYPOTHYROIDISM[ICD9: 244.9] Diagnosis: HYPERLIPIDEMIA NEC/NOS[ICD9: 272.4] Diagnosis: Total knee replacement status[ICD9: V43.65] Jayna Jessicamarialuisa GUTIERREZ TracyPaige JESSICANDER DO [address] [address] CPT- 4: 51992 07/12/2011 OFFICE/OUTPATIENT VISIT EST Diagnosis: BRONCHITIS, ACUTE[ICD9: 466.0] Diagnosis: COUGH[ICD9: 786.2] Jayna MORILLOLINE TracyPaige ORENDER DO [address] [phone] CPT-4: 81928 05/09/20 11 OFFICE/OUTPATIENT VISIT EST Diagnosis: BRONCHITIS, ACUTE[ICD9: 466.0] Diagnosis: ASTHMA NOS[ICD9: 493.90] Diagnosis: Pleurisy[ICD9: 511.0] Jayna Greenbergshonaapolinar JAYNA [facility]ige [facility] [address] [place] [phone] CPT-4: 84135 05/02/2011 OFFICE/OUTPATIENT VISIT EST Diagnosis: COUGH[ICD9: 786.2] Jayna Vanessa JAYNA TracyPaige ORENDER DO [facility] [address] [place] [phone] CPT-4: 44453 04/25/20 11 OFFICE/OUTPATIENT VISIT EST Diagnosis: COUGH[ICD9: 786.2] Diagnosis: SINUSITIS, ACUTE[ICD9: 461.9] Jayna Jessicamarialuisa GUTIERREZ TracyPaige ORENDER DO [facility] [address] [place] [phone] CPT-4: 69567 04/04/2011 OFFICE/OUTPATIENT VISIT EST Diagnosis: HYPOTHYROIDISM[ICD9: 244.9] Diagnosis: Knee osteoarthritis[ICD9: 715.96] Jayna Thomas TracyPaige ORENDER DO [facility] [address] [place] [phone] CPT-4: 68130 03/01/2011 OFFICE/OUTPATIENT VISIT EST Jayna GUTIERREZ TracyPaige ORE NDER DO [facility] [address] [place] [phone] CPT-4: 63447 01/04/2011 ([id number]) OFFICE/OUTPATIENT VISIT EST Jayna MARIA [facility]Paige [facility] [address] [place] [phone] CPT-4: 32909 12/07/2010 ([id number]) OFFICE/OUTPATIENT VISIT EST Jayna PISANO UELINE [facility] [address] [place] [phone] CPT-4: 81236 10/09/2010 ([id number]) OFFICE/OUTPATIENT VISIT EST Jayna [facility] [address] [place] [phone] CPT-4: 50768 08/07/2010 ([id number]) OFFICE/OUTPATIENT VISIT, EST Jayna COPELANDLINE S[facility] [address] [place] [phone] CPT-4: 40228 06/06/2010 ([id number]) OFFICE/OUTPATIENT VISIT, EST Jayna [facility] [address] [place] [phone] CPT-4: 48906 03/20/2010 ([id number]) OFFICE/OUTPATIENT VISIT, EST Jayna [facility] [address] [place] [phone] CPT-4: 45149 01/30/2010 ([id number]) OFFICE/OUTPATIENT VISIT, EST Jayna [facility] [address] [place] [phone] CPT-4: 40364 01/09/2010 (72379) OFFICE/OUTPATIENT VISIT, EST Jayna [facility] [address] [place] [phone] CPT-4: 56996 10/26/2009 ([id number]) OFFICE/OUTPATIENT VISIT, EST Lizzie Kelly [facility] [address] [place] [phone] CPT-4: 76200 10/18/19 10 (66008) OFFICE/OUTPATIENT VISIT, EST Jaynaparam [facility] [address] [place] [phone] CPT-4: 89311 10/04/2009 (85092) OFFICE/OUTPATIENT VISIT, EST Jayna VANESSA DO [facility] [address] [place] [address] CPT-4: 49656 09/21/2009 Plan of Care Planned Activity Notes [...] 08/30/2022 Appointment: Marlene Staples WPtel: [phone] [phone] US FOLLOW UP 08/30/2022 Patient Education: Patient Medication Summary Completed 08/30/2022 Visit Diagnosis Plan: Discussion: Stable Labs disc ussed 08/07/2022 Visit Diagnosis Plan: Essential (primary) hypertension Discussion: Stable ICD-9 : 401.9 ICD-10 : I10 08/07/2022 Visit Diagnosis Plan: Discussion: Update lipids 08/07/2022 Visit Diagnosis Plan: Stress at home Discussion: With 's health ICD-9 : V61.9 ICD-10 : F43.9 08/07/2022 Appointment: [facility] [phone] [facility] FOLLOW UP 08/07/2022 Visit Diagnosis [...] 06/29/2022 Appointment: Marlene Staples WPtel: [address] [phone] ACUTE ILLNESS 06/29/2022 Patient Education: ciprofloxacin HCl- OptimizeRX Coupon [id number] Completed 06/29/2022 Visit Diagnosis Plan: Depression Discussion: Increase Wellbutrin XL to 300mg po qAM Fwup 2 mos ICD-9 : 311 ICD-10 : F32.A 05/28/2022 Visit Diagnosis Plan: Hypothyroidism Discussion: Labs discussed Decrease levothyroxine to 150mcg 6 days a week and repeat thyroid lab in 2mos ICD-9 : 244.9 ICD-10 : E03.9 05/28/2022 Appointment: Jayna Vanessa WPtel: [address] [phone] US FOLLOW UP 05/28/2022 Visit Diagnosis Plan: [...] : R73.9 05/10/2022 Appointment: Jayna Vanessa WPtel: [facility]8 [phone] US FOLLOW UP 05/10/2022 Visit Diagnosis Plan: Migraine, intractable Discussion : Toradol 30mg IM x1 given in clinic. Start Rizatriptan-- discussed on how to use and may repeat x1 dose 2 hours later. Restart propranolol for migraine prevention. Notify clinic if migraine not improving. ICD-9 : 346.91 ICD-10 : G43.919 04/18/2022 Appointment: Marlene Staples WPtel: [address] [phone] ACUTE ILLNESS 04/18/2022 Patient Education: propranolol- OptimizeRX Coupon [id number] Completed 04/18/2022 Appointment: Jayna Vanessa WPtel: [address] [place], [place] [phone] US INJECTION 04/05/2022 Appointment: Jayna Vanessa WPtel: [address] [place], [place] [phone] US CANCELED 03/21/2022 Visit Diagnosis Plan: Acute [...] : J30.9 02/15/2022 Appointment: Jayna Vanessa WPtel: [address] [place] [address] ACUTE ILLNESS 02/15/2022 Patient Education: prednisone- OptimizeRX Coupon [phone] https://www.3Jam.com/samplemd/resources/getResource/61/64i52ka6-d945-4g47-um Completed 02/15/2022 Visit Diagnosis Plan: Hypothyroidism, unspecified Disc ussion: Stable ICD-9 : 244.9 ICD-10 : E03.9 02/06/2022 Visit Diagnosis Plan: Encounter for [facility] adult medical examination without abnormal findings [...] J44.9 02/06/2022 Appointment: Jayna Vanessa WPtel: [address] [phone] Annual Well Visit 02/06/2022 Care Plan: Annual depression screening, 15 minutes 02/06/2022 Visit Diagnosis Plan: 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 Patient declines- will get stat CT of the head, cbc, cmp, and ESR and fwup with results [facility] sample given ICD-9 : 346.03 ICD-10 : G43.111 02/01/2022 Appointment: Latasha Anand WPtel: [address] [phone] ACUTE ILLNESS 02/01/2022 Patient Education: Patient [...] R19.7 11/29/2021 Appointment: Jayna Vanessa WPtel: [address] [phone] FOLLOW UP 11/29/2021 Visit Diagnosis Plan: Diarrhea Discussion: C Diff nega tive Treat with diflucan and Restora-RX Fwup 1 week ICD-9 : 787.91 ICD-10 : R19.7 11/22/2021 Visit Diagnosis Plan: Post-viral cough syndrome Discus joaquín: Change albuterol to Breztri 2p BID Add singulair 10mg po q HS ICD-9 : 786.2 ICD-10 : R05.8 11/22/2021 Appointment: Jayna Vanessa WPtel: [address] [phone] ACUTE ILLNESS 11/22/2021 Patient Education: Singulair- OptimizeRX Coupon [id number] https://www.RuffaloCODY/samplemd/resources/getResource/61/3a73ohm8-7uzg-4884-4f Completed 11/22/2021 Visit Diagnosis Plan: Diarrhea of presumed infectious origin Discussion: Will check for c-diff due to recent antibiotics and foul smelling diarrhea ICD-9 : 009.3 ICD-10 : R19.7 11/21/2021 Visit Diagnosis Plan: History of recent pneumonia Disc ussion: Check cbc, cmp, ESR, and cxr now ICD-9 : V12.61 ICD-10 : Z87.01 11/21/2021 Appointment: Latasha Anand WPtel: [address] [phone] ACUTE ILLNESS 11/21/2021 Patient Education: Patient Medication Summary Completed 11/21/2021 Visit Diagnosis Plan: Pneumonia Discussion: Finish all abx and continue albuterol Fwup next week ICD-9 : 486 ICD-10 : J18.9 11/09/2021 Visit Diagnosis Plan: Serous otitis media Discussion: Kenalog 40mg with Dexamethasone 2mg IM now ICD-9 : 381.4 ICD-10 : H65.90 11/09/2021 Appointment: Jayna Vanessa WPtel: [address] [phone] Hospital Follow Up 11/09/2021 Visit Diagnosis Plan: Pneumonia Discussion: Admit to h ospital ICD-9 : 486 ICD-10 : J18.9 10/31/2021 Appointment: Jayna Vanessa WPtel: [facility]4 [phone] FOLLOW UP 10/31/2021 Visit Diagnosis Plan: Nausea [...] prn 10/30/2021 Appointment: Jayna Vanessa WPtel: [address] [phone] US ACUTE ILLNESS 10/30/2021 Visit Diagnosis Plan: Cervicalgia Discussion: Had x-ra ys done Kenalog 40mg IM now Baclofen prn Mobic for 1 week Topical muscle rube Moist heat and stretches shown Has PT sessions scheduled next week so will add in therapy for neck ICD-9 : 723.1 ICD-10 : M54.2 09/05/2021 Appointment: Jayna Van[facility]Ptel[facility] [address] [phone] AC[facility] ILLNESS 09/05/2021 Visit Diagnosis Plan: [...] 08/24/2021 Appointment: Latasha Anand WPtel: [address] [phone] ACUTE ILLNESS 08/24/2021 Patient Education: Patient Medication Summary Completed 08/24/2021 Patient Education: prednisone- OptimizeRX Coupon [id number] Completed 08/24/2021 Visit Plan: Supportive care. Rest, [...] 07/04/2021 Appointment: Latasha Anand WPtel: [address] [phone] US ACUTE ILLNESS 07/04/2021 Patient Education: Patient Medication Summary Completed 07/04/2021 Patient Education: Patient Medication Summary Completed 07/04/2021 Appointment: Latasha Anand WPtel: [phone] [phone] US NO SHOW 07/03/2021 Appointment: Latasha Anand WPtel: [address] [phone] US patients issue resolved so moved to 's schedule for his hospital fw (km) CANCELED 03/29/2021 Appointment: Jayna Vanessa WPtel: [address] [phone] US INJECTION 03/29/2021 Visit Diagnosis Plan: Vasovagal episode Discussion: Mo nitored in office. Stable, feeling better- sent to [facility] for 1L NS IV, cbc, and cmp. ICD-9 : 780.2 ICD-10 : R55 03/01/2021 Patient Education: Patient Medication Summary Completed 03/01/2021 Visit Diagnosis Plan: Sebaceous cyst of right axilla D iscussion: Pustule/cyst drained- see note. F/U for concerns. ICD-9 : 706.2 ICD-10 : L72.3 02/08/2021 Appointment: Latasha Anand WPtel: [phone] [phone] ACUTE ILLNESS 02/08/2021 Patient Education: Patient Medication Summary Completed 02/08/2021 Visit Diagnosis Plan: Contact dermatitis Discussion: T opical TAC and prednisone Notify if persists or worsens ICD-9 : 692.9 ICD-10 : L25.9 01/19/2021 Appointment: Jayna Vanessa WPtel: [address] [phone] ACUTE ILLNESS 01/19/2021 Patient Education: prednisone- OptimizeRX Coupon [id number] Completed 01/19/2021 Patient Education: triamcinolone acetonide- OptimizeRX Coupon [phone] [phone] Completed 01/19/2021 Visit Diagnosis Plan: Hypothyroidism, unspecified Disc ussion: Increase levothyroxine to 150mcg po daily and recheck TSH and free T4 in 2mos ICD-9 : 244.9 ICD-10 : E03.9 01/03/2021 Visit Diagnosis Plan: Essential (primary) hypertension Discussion: Stable ICD-9 : 401.9 ICD-10 : I10 01/03/2021 Visit Diagnosis Plan: Encounter for [facility] adult medical examination without abnormal findings Discussion: Mediterranean diet Combinati on of cardio and weight bearing exercise Had Covid vaccines Lab discussed ICD-9 : V70.9 ICD-10 : Z00.00 01/03/2021 Visit Diagnosis Plan: Chronic obstructive pulmonary di sease, unspecified Discussion: Following with pulmonology ICD-9 : 496 ICD-10 : J44.9 01/03/2021 Appointment: Jayna Vanessa WPtel: [address] [phone] Annual Well Visit 01/03/2021 Patient Education: levothyroxine- OptimizeRX Coupon [id number] https://www.RuffaloCODY/Kitsy Lanemi/resources/getResource/61/6x644wq9-7xf9-9497-g1 Completed 01/03/2021 Visit Diagnosis Plan: COPD exacerbation Discussion: Sa mple of breztri given. Prednisone 40 mg x 5 days for exacerbation- increased cough, shortness of breath, and phlegm. Promethazine DM cough syrup sent d/t frequent hacking cough that interrupts sleep. F/U for no improvement or any concerns. ICD-9 : 491.21 ICD-10 : J44.1 11/29/2020 Appointment: Latasha Anand WPtel: [phone] [phone] ACUTE ILLNESS 11/29/2020 Patient Education: Patient Medication Summary Completed 11/29/2020 Patient Education: prednisone- OptimizeRX Coupon [id number] Completed 11/29/2020 Patient Education: promethazine-DM- OptimizeRX Coupon [id number] Completed 11/29/2020 Visit Diagnosis Plan: Sinusitis Discussion: Will start doxycycline (pcn allergy). Sinus rinses. Tylenol/nsaids for headache/pain. Return to clinicif not improving/concerns. ICD-9 : 473.9 ICD-10 : J32.9 09/29/2020 Appointment: Latasha Anand WPtel: [phone] [phone] ACUTE ILLNESS 09/29/2020 Patient Education: Patient Medication Summary Completed 09/29/2020 Patient Education: doxycycline hyclate- OptimizeRX Coupon [phone] Completed 09/29/2020 Visit Diagnosis Plan: Other [...] 09/19/2020 Appointment: Latasha Anand WPtel: [address] ACUTE ILLNESS 09/19/2020 Patient Education: Patient Medication Summary Completed 09/19/2020 Patient Education: ProAir HFA- OptimizeRX Coupon [id number] Completed 09/19/2020 Visit Diagnosis Plan: Right-sided tinnitus [...] H93.11 08/10/2020 Appointment: Jayna Vanessa WPtel: [address] [place] [phone] FOLLOW UP 08/10/2020 Patient Education: neomycin-polymyxin B-dexameth- Opti mizeRX Coupon [id number] https://www.RuffaloCODY/Kitsy Lanemd/resources/getResource/61/qq227u21-f40a-5j84-sl Completed 08/10/2020 Visit Diagnosis Plan: Dysfunction of right eustachian tube Discussion: Doxy.mi video visit done Increase zyrtec to BID Increase flonase to BID Add prednisone To office at end of week to assess otoscope exam if persists ICD-9 : 381.81 ICD-10 : H69.81 08/01/2020 Appointment: Jayna Vanessa WPtel: [address] [phone] TELEMEDICINE 08/01/2020 Patient Education: prednisone- OptimizeRX Coupon [phone] https://www.RuffaloCODY/samplemd/resources/getResource/61/zf6h46f3-6566-3g6f-16 Completed 08/01/2020 Visit Diagnosis Plan: Pyelonephritis Discussion: Hilary daniel all abx Push fluids Check lab and repeat UA in 5 days--CBC, CMP, ESR ICD-9 : 590.80 ICD-10 : N12 07/13/2020 Appointment: Jayna Vanessa WPtel: [phone] [phone] [facility] Follow Up 07/13/2020 Visit Diagnosis Plan: Acute gastroenteritis Discussion : Telephone visit completed Clear liquid diet next 24-48hrs Flagyl to cover for colitis/diverticulitis Vickie sutherlandn Notify or to ER if worsening ICD-9 : 558.9 ICD-10 : K52.9 07/05/2020 Appointment: Jayna Vanessa WPtel: [phone] [phone] TELEMEDICINE 07/05/2020 Patient Education: ondansetron HCl- OptimizeRX Coupon [id number] https://www.3Jam.Curse/samplemd/resources/getResource/61/o1l09ky6-3v8n-905l-5x Completed 07/05/2020 Visit Diagnosis Plan: Metabolic syndrome Discussion: U pdate CMP, HBa1c ICD-9 : 277.7 ICD-10 : E88.81 06/22/2020 Visit Diagnosis Plan: Cnwir-2-ocbjamgjfro deficiency D iscussion: Following with pulmonology ICD-9 [...] : I10 06/22/2020 Appointment: Jayna Vanessa WPtel: [facility]0 [phone] FOLLOW UP 06/22/2020 Visit Diagnosis Plan: Urinary tract infection Discussi on: Macrobid Diflucan Push water Notify if worsens ICD-9 : 599.0 ICD-10 : N39.0 05/17/2020 Appointment: Jayna Vanessa WPtel: [address] [place] [address] [place], [place] [phone] ACUTE ILLNESS 05/17/2020 Patient Education: fluconazole- OptimizeRX Coupon [id number] https://www.3Jam.Curse/3Jam/resources/getResource/61/5c2to1jf-n2a5-8i3k-7w Completed 05/17/2020 Visit Diagnosis Plan: Right pulmonary embolus Discussi on: Continue eliquis at 5mg po BID Has appointments pending with pulmonology and hematology Fwup after visits with both of these specialists ICD-9 : 415.19 ICD-10 : I26.99 03/14/2020 Appointment: Jayna Vanessa WPtel: [address] [place] [address] [place], [place] [phone] LM 03/14/20 on cell -- home phone had busy signal Hospital Follow Up 03/14/2020 Appointment: Jayna Vanessa WPtel: [address] [place] [address] [place], [place] [phone] I schedule patient by mistake ddo Scheduled [...] R06.00 03/07/2020 Appointment: Jayna Vanessa WPtel: [address] [phone] ACUTE ILLNESS 03/07/2020 Care Plan: CT THORAX W/DYE LOINC : 93110 -6 Pending 03/07/2020 Appointment: Jayna Vanessa TracyPaige WPtel: [address] [phone] NO SHOW - FORGIVEN 03/02/2020 Visit Diagnosis Plan: Upper respiratory infection Disc ussion: patient's covid test was neg from several weeks ago. proair refilled to take as needed. medrol pack prescribed to cover for allergies since her symptoms began after being in [facility]. however, instructed patient that she needs to be checked again for coronavirus due to severity of her symptoms. patient lives near [place] so informed her to [facility] for testing. call ofice with new or worsening symptoms, otherwise push fluids. ICD-9 : 465.9 ICD-10 : J06.9 02/11/2020 Appointment: Genesis Fernández [address] [place] [address] TELEMEDICINE 02/11/2020 Patient Education: ProAir HFA- OptimizeRX Coupon [id number] Completed 02/11/2020 Patient Education: Medrol (Isaiah)- OptimizeRX Coupon [id number] Completed 02/11/2020 Visit Diagnosis Plan: Hypothyroidism, unspecified [...] I10 12/21/2019 Visit Diagnosis Plan: Encounter for [facility] adult medical examination without abnormal findings Discussion: Mediterranean diet Combinati on of cardio and weight bearing exercise Lab discussed Last colonoscopy 3 years ago ICD-9 : V70.9 ICD-10 : Z00.00 12/21/2019 Appointment: Jayna Vanessa WPtel: [phone] Annual Well Visit 12/21/2019 Care Plan: Referral Order SNOMED-CT : [id number] Pending 12/21/2019 Visit Diagnosis Plan: Dermatitis Discussion: Doxy.me v ideo visit done Cover with Prednisone taper Use Zyrtec 10mg po q AM BID ICD-9 : 692.9 ICD-10 : L30.9 09/29/2019 Appointment: Jayna Vanessa WPtel: [address] [place] [address] [place], [place] [phone] TELEMEDICINE 09/29/2019 Patient Education: prednisone- OptimizeRX Coupon [phone] https://www.RuffaloCODY/3Jam/resources/getResource/61/[email or web address] Completed 09/29/2019 Visit Diagnosis Plan: Bone spur [...] : N39.0 09/14/2019 Appointment: Jayna Vanessa WPtel: [address] [place], [place] [phone] TELEMEDICINE 09/14/2019 Appointment: Jayna Vanessa WPtel: [address] [place], [place] [phone] LAB 09/11/2019 Appointment: Jayna Vanessa WPtel: [address] [place], [place] [phone] 09/09/2019 1210--per Ally patient was to only have 1 injection, reculture urine on 09/11/19 (km) CANCELED 09/09/2019 Appointment: Jayna Vanessa WPtel: [address] [place] [phone] US INJECTION 09/08/2019 Appointment: Jayna Vanessa WPtel: [address] [phone] US INJECTION 09/07/2019 Visit Diagnosis Plan: Urinary [...] ICD-10 : R35.0 09/02/2019 Appointment: Genesis Fernández [address] [place] [address] ACUTE ILLNESS 09/02/2019 Visit Diagnosis Plan: Sinusitis Discussion: instructed to start flonase daily and zyrtec daily. if no improvement next week, call clinic and may need further directions. instructed to use saline eye drops as needed to eyes to assist with dryness. ICD-9 : 473.9 ICD-10 : J32.9 07/09/2019 Appointment: Genesis Fernández [address] [place] [address] ACUTE ILLNESS 07/09/2019 Visit Diagnosis Plan: UTI (urinary tract infection) Di scussion: urine culture sent off. will start on macrobid due to symptoms. instructed to push fluids and chemo tomorrow with worsening symptoms. ICD-9 : 599.0 ICD-10 : N39.0 04/15/2019 Appointment: Jayna Vanessa WPtel: [address] [place], [place] [phone] US INJECTION 04/15/2019 Appointment: Genesis Fernández [address] [place] [address] ACUTE ILLNESS 04/15/2019 Visit Diagnosis Plan: Pain in right leg Discussion: ke nalog/dexa given in office. continue with flexeril prn. PT was ordered for patient due to chronic issues. call office with worsening symptoms and may need imaging. ICD-9 : 729.5 ICD-10 : M79.604 04/07/2019 Appointment: Genesis Fernández [address] [place] [address] ACUTE ILLNESS 04/07/2019 Visit Diagnosis Plan: Diverticulitis of large intestine without perforation or abscess without bleeding Discussion: Patient will call when she g ets home and verify which antibiotics she has left--needs at least another week on flagyl and thinks she only took 1 week on that ICD-9 : 562.11 ICD-10 : K57.32 03/25/2019 Appointment: Jayna Vanessa WPtel: [facility] [place] [phone] FOLLOW UP 03/25/2019 Visit Diagnosis Plan: Cystitis Discussion: Bactrim and culture urine ICD-9 : 595.9 ICD-10 : N30.90 03/18/2019 Visit Diagnosis Plan: Abdominal pain Discussion: Cover with flagyl for colitis [place] diet To ER this weekend if worsening Fwup 1 week ICD-9 : 789.00 ICD-10 : R10.9 03/18/2019 Appointment: Jayna Vanessa WPtel: [address] ACUTE ILLNESS 03/18/2019 Visit Diagnosis Plan: [...] : R10.84 01/26/2019 Appointment: Genesis Fernández [address] [facility] ACUTE ILLNESS 01/26/2019 Appointment: Jayna Vanessa WPtel: [address] [place], [place] [phone] CANCELED 01/12/2019 Visit Diagnosis Plan: Mild intermittent asthma with (a cute) exacerbation Discussion: Kenalog 40mg IM now Prednisone stating tomorrow Start Doxycycline tonight Continue SVNs with duoneb q4hrs To ER this weekend if worsening Call Saturday on how doing ICD-9 : 466.0 ICD-10 : J45.21 01/08/2019 Appointment: Jayna Vanessa WPtel: [facility]9 [phone] FOLLOW UP 01/08/2019 Patient Education: prednisone- OptimizeRX Coupon [phone] https://www.RuffaloCODY/3Jam/resources/getResource/61/98262845-r7wv-1472-86 Completed 01/08/2019 Visit Diagnosis Plan: Mild intermittent asthma with (a cute) exacerbation Discussion: Solumedrol 125mg IM SVN with duoneb given Continue albuterol q4hrs CXR now Recheck tomorrow ICD-9 : 466.0 ICD-10 : J45.21 01/06/2019 Appointment: Jayna Vanessa WPtel: [address] [place], [place] [phone] ACUTE ILLNESS 01/06/2019 Visit Diagnosis Plan: Encounter for screening for roel gnant neoplasm of colon Discussion: positive for ob. will order ct abd/pelvis due to other findings and discussed with patient that may need to proceed with updated colonoscopy. patient verbalized understanding. ICD-9 : V76.51 ICD-10 : Z12.11 12/11/2018 Visit Diagnosis Plan: Encounter for [facility] adult medical examination with abnormal findings Discussion: [...] ICD-10 : N76.0 12/11/2018 Appointment: Genesis Fernández [address] [place] [address] Annual Well Visit 12/11/2018 Care Plan: RML ASSAY THYROID STIM HORMONE Pending 12/04/2018 Care Plan: RML ASSAY OF FREE THYROXINE Pe nding 12/04/2018 Care Plan: RML A1C HPLC LOINC : 04949-5 Pending 12/04/2018 Care Plan: RML LIPID PANEL LOINC : 03044 -1 Pending 12/04/2018 Care Plan: RML COMPREHEN METABOLIC PANEL LOINC : 23594-7 Pending 12/04/2018 Care Plan: QUEST CBC (INCLUDES DIFF/PLT) LOINC : 05044-5 Pending 12/04/2018 Visit Diagnosis Plan: Benign paroxysmal vertigo, bilat eral Discussion: Meclizine Vestibular Exercises To ER if worsens or develops neurological symptoms or will need CT scan if persists/worsens ICD-9 : 386.11 ICD-10 : H81.13 10/30/2018 Appointment: Jayna Vanessa WPtel: [address] [place], [place] [phone] ACUTE ILLNESS 10/30/2018 Patient Education: VESTIBULAR EXCERCISES Completed 10/30/2018 Patient Education: meclizine- OptimizeRX Coupon [id number] Completed 10/30/2018 Appointment: Jayna Vanessa WPtel: [address] [place], [place] [phone] US canceled due to huband going into [...] ICD-10 : R05 10/07/2018 Appointment: Stacey Feng [facility] 10/07/2018 Patient Education: doxycycline hyclate- OptimizeRX Cou [facility] [phone] https://www.3Jam.com/samplemd/resources/getResource/61/l358ytx2-k879-240r-31 Completed 10/07/2018 Care Plan: RML ASSAY OF [...] : M85.80 06/23/2018 Appointment: Jayna Vanessa WPtel: [address] [place], [place] [phone] US FOLLOW UP 06/23/2018 Appointment: Jayna Vanessa WPtel: [facility]7 [phone] US ER Follow UP 01/27/2018 Visit Diagnosis Plan: Hypothyroidism, unspecified Disc ussion: Lab discussed Increase Levothyroxine to 175mcg daily then recheck level in 6 weeks Follow Up: 6 weeks ICD-9 : 244.9 ICD-10 : E03.9 01/16/2018 Visit Diagnosis Plan: Mixed hyperlipidemia Discussion: Defers statin meds ICD-9 : 272.4 ICD-10 : E78.2 01/16/2018 Appointment: Jayna Vanessa WPtel: [address] [place] [address] FOLLOW UP 01/16/2018 Patient Education: Patient Medication Summary Completed 01/16/2018 Patient Education: Patient Medication Summary Completed 01/15/2018 Care Plan: RML COMPREHEN METABOLIC PANEL LOINC : 70968-9 Pending 01/15/2018 Care Plan: RML ASSAY THYROID STIM HORMONE Pending 01/15/2018 Care Plan: RML ASSAY OF FREE THYROXINE Pe nding 01/15/2018 Care Plan: RML LIPID PANEL LOINC : 04434 -1 Pending 01/15/2018 Care Plan: CBC Pending 01/15/2018 Care Plan: RML A1C HPLC LOINC : 13749-7 Pending 01/15/2018 Appointment: Jayna Vanessa WPtel: [address] [place] [address] CANCELED 12/26/2017 Appointment: Jayna Vanessa WPtel: [address] [place] [address] US CANCELED 10/28/2017 Visit Diagnosis Plan: Cervicalgia Discussion: xray ord ered of cervical spine and right shoulder. 40 mg kenalog/15 mg toradol prescribed to assist with pain. medrol dose pack prescribed to start tomorrow. instructed patient that if she d evelops worsening pain or no improvement, call or rtc. ICD-9 : 723.1 ICD-10 : M54.2 10/16/2017 Appointment: Genesis Fernández [address] [place] [address] ACUTE ILLNESS 10/16/2017 Patient Education: Patient Medication Summary Completed 10/16/2017 Care Plan: X-RAY EXAM NECK SPINE 4/5VWS cervical LOINC : 36183-5 Pending 10/16/2017 Visit Diagnosis Plan: Headache Discussion: Stat CT of head Dilated eye exam ICD-9 : 784.0 ICD-10 : R51 09/12/2017 Visit Diagnosis Plan: Dizziness and giddiness Discussi on: Check CBC,TSH, Free T4 now ICD-9 : 780.4 ICD-10 : R42 09/12/2017 Appointment: Jayna Vanessa WPtel: [address] [place], [place] [address] ACUTE ILLNESS 09/12/2017 Patient Education: Patient Medication Summary Completed 09/12/2017 Care Plan: CT HEAD/BRAIN W/O DYE [facility] : 36203-3 Pending 09/12/2017 Visit Diagnosis Plan: Cough Discussion: discussed cxra y and sputum results with patient and how they are negative for bacteria. patient restarted on her PPI to cover possiblity of GERD causing cough. instructed patient to contact her catering cook in [place] for them to evaluate. rtc with any new or worsening symptoms but continue with inhaler and nebulizer treatments as needed. ICD-9 : 786.2 ICD-10 : R05 08/20/2017 Appointment: Genesis Fernández [address] [place] [address] FOLLOW UP 08/20/2017 Patient Education: Patient Medication Summary Completed 08/20/2017 Visit Diagnosis Plan: COUGH Discussion: Check stat CXR Check Sputum culture ICD-9 : 786.2 ICD-10 : R05 08/13/2017 Appointment: Jayna Vanessa WPtel: [address] [place] [address] ACUTE ILLNESS 08/13/2017 Patient Education: Patient Medication [...] Rest, Fluids... 07/29/2017 Appointment: Jayna Vanessa WPtel: [address] [place], [place] [address] ACUTE ILLNESS 07/29/2017 Patient Education: Patient Medication [...] ICD-10 : J09.X2 07/25/2017 Appointment: Genesis Fernández [address] [place] [address] ACUTE ILLNESS 07/25/2017 Patient Education: Patient Medication [...] : M25.50 06/10/2017 Appointment: Jayna Vanessa WPtel: [address] [place], [place] [address] ACUTE ILLNESS 06/10/2017 Patient Education: Patient Medication Summary Completed 06/10/2017 Appointment: Jayna Vanessa WPtel: [address] [place], [place] [phone] Does not need appointment CANCELED 2016 Appointment: Jayna Vanessa WPtel: [address] [place], [place] [phone] [place] CANCELED 05/30/2017 Visit Diagnosis Plan: Acute bronchitis, unspecified Di scussion: prednisone, zpack and tessalon perles prescribed to assist with symptoms. call or RTC if no improvement. humidifier at night. hydrate well and rest. discussed side effects from prednisone including increased blood sugars and instructed to monitor. ICD-9 : 490 ICD-10 : J20.9 05/28/2017 Appointment: Jolene, Genesis R. [address] [place], [place] [id number] ACUTE ILLNESS 05/28/2017 Patient Education: Patient Medication Summary Completed 05/28/2017 Visit Diagnosis Plan: Type 2 diabetes mellitus without complications Discussion: Continue current meds accuchecks daily ICD-9 : 250.00 ICD-10 : E11.9 04/04/2017 Visit Diagnosis Plan: Encounter for gene [facility] adult medical examination without abnormal findings Discussion: Flu and Pneumovax given Mamm ogram ordered Lab discussed ICD-9 : V70.9 ICD-10 : Z00.00 04/04/2017 Appointment: Jayna Vanessa WPtel: [phone] [phone] Annual Well Visit 04/04/2017 Patient Education: Patient Medication Summary Completed 04/04/2017 Care Plan: MAMMOGRAM SCREENING LOINC : 2 6347-5 Pending 04/04/2017 Patient Education: Patient Medication Summary Completed 03/21/2017 Care Plan: RML COMPREHEN METABOLIC PANEL LOINC : 12392-2 Pending 03/21/2017 Care Plan: RML ASSAY THYROID STIM HORMONE Pending 03/21/2017 Care Plan: RML ASSAY OF FREE THYROXINE Pe nding 03/21/2017 Care Plan: CBC Pending 03/21/2017 Care Plan: RML A1C HPLC LOINC : 44374-8 Pending 03/21/2017 Visit Diagnosis Plan: Mixed hyperlipidemia Discussion: Continue current meds Follow Up: 6 months ICD-9 : 272.4 ICD-10 : E78.2 11/28/2016 Visit Diagnosis Plan: Hypothyroidism, unspecified Disc ussion: Continue current dose ICD-9 : 244.9 ICD-10 : E03.9 11/28/2016 Visit Diagnosis Plan: [id number] deficiency D iscussion: Continue weekly injections ICD-9 : 273.4 ICD-10 : E88.01 11/28/2016 Visit Diagnosis Plan: Sebaceous cyst Discussion: Emily swann Discussed removal ICD-9 : 706.2 ICD-10 : L72.3 11/28/2016 Appointment: Jayna Vanessa WPtel: [phone] [phone] 6/6 rang and rang on home phone and mobile confirmed~sl FOLLOW UP 11/28/2016 Patient Education: Patient Medication Summary Completed 11/28/2016 Patient Education: Patient Medication Summary Completed 11/20/2016 Referral: Tom Mcrae WPtel: [address] [facility] 440 [id number] Referral Initiated 07/05/2016 Visit Plan: Start with CT abdomen/pelvis Will need EGD and Colonoscopy so will refer to Dr. Pina Obtain most recent lab results 06/05/2016 [facility]ment: [phone] [phone] [facility] 06/05/2016 Patient Education: Patient Medication Summary Completed 06/05/2016 Care Plan: CT PELVIS W/O DYE LOINC : 361 08-9 Pending 06/05/2016 Care Plan: CT ABDOMEN W/O DYE LOINC : 36 103-0 Pending 06/05/2016 Care Plan: Referral Order SNOMED-CT : [id number] Pending 06/05/2016 Appointment: Jay[facility]el[phone] [phone] [facility] INJECTION 05/01/2016 Patient Education: Patient Medication Summary Completed 05/01/2016 Patient Education: Patient Medication Summary Completed 04/26/2016 Care Plan: RML COMPREHEN METABOLIC PANEL LOINC : 11026-4 Pending 04/26/2016 Care Plan: RML ASSAY THYROID STIM HORMONE Pending 04/26/2016 Care Plan: RML ASSAY OF FREE THYROXINE Pe nding 04/26/2016 Care Plan: RML A1C HPLC LOINC : 73041-9 Pending 04/26/2016 Referral: Aditya Stone WPtel: [address] [id number] Arrival time is 10:00 Am~sl Appointment Confirme d 11/25/2015 Visit Plan: Had fasting lab done this AM Continue PT for right shoulder Continue current meds Referral to Dr. Temo Stone for incontinence 11/08/2015 Appointment: Jayna Vanessa WPtel: [phone] [phone] 11/06 confirmed-sp FOLLOW UP 11/08/2015 Patient Education: Patient Medication Summary Completed 11/08/2015 Appointment: Jayna Vanessa WPtel: [address] [place], [place] [phone] [place] 10/19 rescheduled ~sl RESCHEDULED 10/24/2015 Appointment: Jayna Vanessa WPtel: [address] [place], [place] [phone] [place] 10/10rang and rang ~sl RESCHEDULED 6 Patient Education: Patient Medication Summary Completed 10/12/2015 Care Plan: RML COMPREHEN METABOLIC PANEL LOINC : 61163-0 Pending 10/12/2015 Care Plan: RML ASSAY THYROID STIM HORMONE Pending 10/12/2015 Care Plan: RML ASSAY OF FREE THYROXINE Pe nding 10/12/2015 Care Plan: RML LIPID PANEL LOINC : 98283 -1 Pending 10/12/2015 Care Plan: CBC Pending 10/12/2015 Care Plan: RML A1C HPLC LOINC : 07104-9 Pending 10/12/2015 Care Plan: VITAMIN D TOTAL (25 HYDROXY) P ending 10/12/2015 Appointment: Jayna Vanessa WPtel: [address] [place], [place] [phone] [place] CANCELED 09/22/2015 Visit Plan: Lab discussed Change thyroid med back to brand synthroid and recheck thyroid lab in os 07/19/2015 Appointment: Jayna Vanessa WPtel: [phone] [place] 07/18/15 appt confirmed cn FOLLOW UP 07/19 Patient Education: Patient Medication Summary Completed 07/19/2015 Patient Education: Patient Medication Summary Completed 07/12/2015 Visit Plan: Lab discussed Change synthro id to 150mcg all days but M, W, F will change to 175mcg Check Lab and fwup in os Flu shot given 03/28/2015 Appointment: Jayna Vanessal: [phone] 03/25 rang for 1:40 seconds t confirmed cn FOLLOW UP 03/28/2015 Patient Education: Patient Medication Summary Completed 03/28/2015 Patient Education: Patient Medication Summary Completed 03/21/2015 Visit Plan: Continuue fluoxetine at high er dose Increase synthroid to 150mcg as ordered Decrease propranolol to 20mg po BID Check thyroid lab and fwup in 2mos Prevnar 13 given 02/08/2015 Appointment: Jayna Vanessa WPtel: [address] [place], [place] [phone] [place] FOLLOW UP 02/08/2015 Patient Education: Patient Medication Summary Completed 02/08/2015 Visit Plan: Check CBC, CMP, TSH, Free T4 , uric acid, lactate now Increase fluoxetine to 40mg daily Recheck in 1month Notify if worsening Culture urine 01/11/2015 Appointment: Jayna Vanessa WPtel: [address] [place], [place] [phone] ACUTE ILLNESS 01/11/2015 Patient Education: Patient Medication Summary Completed 01/11/2015 Visit Plan: Lab discussed Accuchecks lucian ly Medrol dose pack Rx for back brace 11/24/2014 Appointment: Jayna Vanessa WPtel: [address] [place], [place] [phone] 11/23 confirmed -mf FOLLOW UP 11/24/2014 Patient Education: Patient Medication Summary Completed 11/24/2014 Appointment: Galina Leos WPtel: [address] [place], [place] [phone] ER Follow UP 11/19/2014 Patient Education: Patient Medication Summary Completed 11/19/2014 Appointment: Conchita Capone WPtel: [address] [place], [place] [phone] ACUTE ILLNESS 10/27/2014 Patient Education: Patient Medication Summary Completed 10/27/2014 Patient Education: [facility] - Saving AutoInj - 18+ - Dynamic Portal ID Completed 10/27/2014 Appointment: Liborio Conchita Rudd WPtel: [address] [place], [place] [phone] ACUTE ILLNESS 09/23/2014 Patient Education: Patient Medication Summary Completed 09/23/2014 Visit Plan: Lab discussed Continue curre nt meds 07/28/2014 Appointment: Jayna Vanessa WPtel: [address] [place], [place] [phone] 07/27 FOLLOW UP 07/28/2014 Patient Education: Patient Medication Summary Completed 07/28/2014 Patient Education: Patient Medication Summary Completed 07/21/2014 Patient Education: Patient Medication Summary Completed 04/27/2014 Appointment: Jayna Vanessa WPtel: [address] [place], [place] [phone] 03/29 FOLLOW UP 03/30/2014 Patient Education: Patient Medication Summary Completed 03/30/2014 Patient Education: [facility] - Saving AutoInj - 18+ - Dynamic Portal ID Completed 03/30/2014 Visit Plan: Lab discussed DC Vytorin Tri al of Lipitor 80mg q HS Continue Trilipix Check Lipids/CMP/thyroid and HbA1C in 4mos then fwup 11/24/2013 Appointment: Jayna Vanessa WPtel: [address] [place], [place] [phone] FOLLOW UP 11/24/2013 Patient Education: Patient Medication Summary Completed 11/24/2013 Patient Education: [facility] - Saving AutoInj - 18+ - Dynamic Portal ID Completed 11/24/2013 Visit Plan: Lab discussed Daily accuchec ks Cont current meds 08/25/2013 Appointment: Jayna Vanessa WPtel: [address] [place], [place] [phone] 08/24 FOLLOW UP 08/25/2013 Patient Education: Patient Medication Summary Completed 08/25/2013 Appointment: Jayna Vanessa WPtel: [address] [place], [place] [phone] FOLLOW UP 08/05/2013 Visit Plan: Continue Wellbutrin/Fluoxeti ne Fasting lab and fwup in 2mos 06/29/2013 Appointment: Jayna Vanessa WPtel: [address] [place], [place] [phone] 06/[address] [facility] 06/29/2013 Patient Education: Patient Medication Summary Completed 06/29/2013 Visit Plan: Increase Wellbutrin to 300mg daily Add fluoxetine 20mg daily 05/26/2013 Appointment: Jayna Vanessa WPtel: [address] [place], [place] [phone] FOLLOW UP 05/26/2013 Patient Education: Patient Medication Summary Completed 05/26/2013 Visit Plan: OK to proceed with planned s [facility] surgery next week Continue current meds Check fasting lab--CBC, CMP, TSH, free T4, HbA1C, Lipids, Vit D at end of this week prior to surgery 05/06/2013 Appointment: Jayna Vanessa WPtel: [address] [place], [place] [phone] FOLLOW UP 05/06/2013 Patient Education: Patient Medication Summary Completed 05/06/2013 Appointment: Jayna Vanessa WPtel: [address] [place], [place] [phone] ACUTE ILLNESS 04/23/2013 Patient Education: Patient Medication Summary Completed 04/23/2013 Patient Education: [facility] - Saving AutoInj - 18+ - Dynamic Portal ID Completed 04/23/2013 Visit Plan: Decrease Lasix to 20mg daily Leave potassium at 20meq daily Check Chem 7 in 1wk 03/31/2013 Appointment: Jayna Vanessa WPtel: [address] [place], [place] [phone] FOLLOW UP 03/31/2013 Patient Education: Patient Medication Summary Completed 03/31/2013 Appointment: Conchita Capone WPtel: [address] [place], [place] [phone] ACUTE ILLNESS 03/05/2013 Patient Education: Patient Medication Summary Completed 03/05/2013 Visit Plan: Lab discussed Continue curre nt meds Pt is going to start allergy injections Go for port placement to continue prolastin infusions 02/04/2013 Appointment: Jayna Vanessa WPtel: [phone] [phone] ACUTE ILLNESS 02/04/2013 Patient Education: Patient Medication Summary Completed 02/04/2013 Visit Plan: 2-D ECHO discussed See Pulmo nology Pt states cough had went away with allergy meds and then has came back Continue allergy meds and add pepcid BID Discussed allergy testing 11/27/2012 Appointment: Jayna Vanessatel: [address] [place], [place] [phone] FOLLOW UP 11/27/2012 Patient Education: Patient Medication Summary Completed 11/27/2012 Visit Plan: PFTS discussed Proceed with 2-D ECHO and pulmonology evaluation Pt was concerned propranolol could be cause but discussed this is likely not culpri HOMERO was DCed in 2009, is on PPI, has seen ENT, will restart allergy meds--may need allergy testing 11/11/2012 Appointment: Jayna Vanessa WPtel: [address] [place], [place] [phone] FOLLOW UP 11/11/2012 Patient Education: Patient Medication Summary Completed 11/11/2012 Visit Plan: Hold metformin Check CMP, Li pids, TSH, Free T4, HbA1C Check PFTs 10/20/2012 Appointment: Jayna Vanessa WPtel: [address] [place], [place] [phone] 10/17 left message FOLLOW UP 10/20/2012 Patient Education: Patient Medication Summary Completed 10/20/2012 Appointment: Jayna Vanessa WPtel: [phone] [phone] 10/13 FOLLOW UP 10/14/2012 Visit Plan: Discussed fluids and rest. W ill monitor for worsening symptoms/fever. Azithromycin, medrol dose pack and refil on cough syrup. Pt. will notify if symptoms worsen or persist. 09/03/2012 Appointment: Lizzie Kelly WPtel: [address] [place], [place] [phone] ACUTE ILLNESS 09/03/2012 Patient Education: Patient Medication Summary Completed 09/03/2012 Visit Plan: discussed that symptoms star edvin around [place] time. Will begin culturelle BID and monitor for fever or worsening symptoms. Fluid intake important. CBC, CMP, sed rate and stool studies. Order written for Mag lab. 07/23/2012 Appointment: Lizzie Kelly WPtel: [address] [place], [place] [phone] ACUTE ILLNESS 07/23/2012 Patient Education: Patient Medication Summary Completed 07/23/2012 Visit Plan: Increase Metformin to 1000mg po BID Accuchecks daily Continue rest of meds at current dose and low-fat, low-sugar diet with increased exercise Check fasting lab in 4mos Restart Nexium 05/20/2012 Appointment: Jayna Vanessa WPtel: [address] [place], [place] [phone] patient had bad night so missed 05/06 appt...left voicemail 05/19 FOLLOW UP 05/20/2012 Patient Education: Patient Medication Summary Completed 05/20/2012 Appointment: Jayna Vanessa WPtel: [address] [place], [place] [phone] patient had bad night so missed 05/06 appt time. cn FOLLOW UP 05/06/2012 Appointment: Galina Leos WPtel: [address] [place], [place] [phone] ACUTE ILLNESS 04/04/2012 Patient Education: Patient Medication Summary Completed 04/04/2012 Visit Plan: Cryotherapy as above 02/20/2012 Appointment: Jayna Vanessa WPtel: [address] [place], [place] [phone] 02/18 OFFICE SURGERY 02/20/2012 Patient Education: Patient Medication Summary Completed 02/20/2012 Visit Plan: Increase Metfromin to 1000mg daily Continue all other current meds 01/02/2012 Appointment: Jayna Vanessa WPtel: [address] [place], [place] [phone] FOLLOW UP 01/02/2012 Patient Education: Patient Medication Summary Completed 01/02/2012 Appointment: Lizzie Kelly WPtel: [address] [place] [address] ACUTE ILLNESS 09/04/2011 Patient Education: Patient Medication Summary Completed 09/04/2011 Visit Plan: Finish Keflex Proceed with c olonoscopy Increase aspirin to 325mg daily for next 2wks Add Vimovo 20/500mg po Daily 08/14/2011 Appointment: Jayna Vanessa WPtel: [address] [place], [place] [address] [facility] Follow Up 08/14/2011 Patient Education: Patient Medication Summary Completed 08/14/2011 Appointment: Lizzie Kelly WPtel: [address] [place] [address] ACUTE ILLNESS 07/31/2011 Patient Education: Patient Medication Summary Completed 07/31/2011 Visit Plan: Doxy and steroids. Codeine/g uiaf cough syrup. Pt. will monitor for worsening symptoms and notify if fever occurs. Encouraged rest and fluids. 07/25/2011 Appointment: Lizzie Kelly WPtel: [address] [place], [place] [address] ACUTE ILLNESS 07/25/2011 Patient Education: Patient Medication Summary Completed 07/25/2011 Visit Plan: Check full lab in 3mos Radha nue with all current meds Continue PT for knee 07/12/2011 Appointment: Jayna Vanessa WPtel: [address] [place], [place] [phone] FOLLOW UP 07/12/2011 Patient Education: Patient Medication Summary Completed 07/12/2011 Visit Plan: Continue symbicort for 2 mor e weeks 05/09/2011 Appointment: Jayna Vanessa WPtel: [address] [place], [place] [phone] FOLLOW UP 05/09/2011 Patient Education: Patient Medication Summary Completed 05/09/2011 Appointment: Jayna Vanessa WPtel: [address] [place], [place] [phone] ER Follow UP 05/02/2011 Patient Education: Patient Medication Summary Completed 05/02/2011 Visit Plan: Pt. has recently finished ro und of Cefdinir with no improvement. Chest x-ray, CBC, CMP and mycoplasma order given to pt. Pt. will start Doxycycline. 04/25/2011 Appointment: Lizzie Kelly WPtel: [address] [place], [place] [phone] FOLLOW UP 04/25/2011 Patient Education: Patient Medication Summary Completed 04/25/2011 Appointment: Lizzie Kelly WPtel: [address] [place] [address] ACUTE ILLNESS 04/04/2011 Patient Education: Patient Medication Summary Completed 04/04/2011 Appointment: Lizzie Kelly WPtel: [address] [place] [address] ACUTE ILLNESS 04/03/2011 Visit Plan: Decrease Synthroid to 150mcg daily Repeat TSH and Free T4 in 2mos Knee injection as above 03/01/2011 Appointment: Jayna Vanessa WPtel: [address] [place], [place] [phone] 03/01/2011 Patient Education: Patient Medication Summary Completed 03/01/2011 Visit Plan: Increase Synthroid to 175mcg po daily Check TSH, Free T4 in 8wks Injection given to knee as above Continue Pt 01/04/2011 Appointment: Jayna Vanessa WPtel: [address] [place], [place] [phone] FOLLOW UP 01/04/2011 Patient Education: Patient Medication Summary Completed 01/04/2011 Visit Plan: Septra DS, Mupirocin topical . Pt. will observe wound and report worsening symptoms. 12/07/2010 Appointment: Lizzie Kelly WPtel: [address] [place], [place] [phone] ACUTE ILLNESS 12/07/2010 Patient Education: Patient Medication Summary Completed 12/07/2010 Visit Plan: Increase Synthroid to 150mcg po daily Add Metformin Diet and exercise discussed at length again Repeat thyroid US Add Vit D level Will see if polydipsia improves with metformin 10/09/2010 Appointment: Jayna Vanessa WPtel: [address] [place], [place] [phone] FOLLOW UP 10/09/2010 Patient Education: Patient Medication Summary Completed 10/09/2010 Visit Plan: Increase Synthroid to 125mcg daily Decrease Vit D 50,000 u three times a week Discussed HRT Proceed with sleep study Fwup pending sleep study results 08/07/2010 Appointment: Jayna Vanessa WPtel: [address] [place], [place] [phone] FOLLOW UP 08/07/2010 Patient Education: Patient Medication Summary Completed 08/07/2010 Visit Plan: Decrease Synthroid to 100mcg QD Check thyroid lab in 2mos Check estradiol levels in 2mos--discussed HRT Increase Vit D 50,000u to 1 daily M-F 06/06/2010 Appointment: Jayna Vanessa WPtel: [address] [place], [place] [phone] ACUTE ILLNESS 06/06/2010 Patient Education: Patient Medication Summary Completed 06/06/2010 Visit Plan: Injections to knees as above 04/12/2010 Appointment: Jayna Vanessa WPtel: [address] [place], [place] [phone] OFFICE SURGERY 04/12/2010 Patient Education: Patient Medication Summary Completed 04/12/2010 Visit Plan: Decrease Synthroid to 175mcg QD Check lab in 2mos Change daily Vit D to weekly 03/20/2010 Appointment: Jayna Vanessa WPtel: [phone] [phone] US ESTABLISHED PATIENT 03/20/2010 Patient Education: Patient Medication Summary Completed 03/20/2010 Appointment: Jayna Vanessa WPtel: [address] [place], [place] [phone] ACUTE ILLNESS 01/30/2010 Patient Education: Patient Medication Summary Completed 01/30/2010 Appointment: Jayna Vanessa WPtel: [address] [place], [place] [phone] ACUTE ILLNESS 01/09/2010 Patient Education: Patient Medication Summary Completed 01/09/2010 Appointment: Jayna Vanessa WPtel: [address] [place], [place] [phone] BP CHECK 11/07/2009 Patient Education: Patient Medication Summary Completed 11/07/2009 Appointment: Jayna Vanessa WPtel: [address] [place], [place] [phone] OFFICE SURGERY 10/26/2009 Patient Education: Patient Medication Summary Completed 10/26/2009 Appointment: Lizzie Kelly WPtel: [address] [place], [place] [phone] OFFICE SURGERY 10/17/2009 Patient Education: Patient Medication [...] up appnt. 10/04/2009 Appointment: Lizzie Kelly WPtel: [address] [place], [place] [phone] ACUTE ILLNESS 10/04/2009 Patient Education: Patient Medication Summary Completed 10/04/2009 Visit Plan: E-scribed refils. Pt. report s that she normally has lab work drawn and orders are given (faxed) to her normal lab facility by Patricia. Pt. states her migraine headaches have abated for now and that she is going to see her migraine doctor in [place] in the near future(Dr Cook) Pt will seek re-eval as necessary for acute issues. 09/21/2009 Appointment: Lizzie Kelly WPtel: [phone] [facility] US CHECK UP 09/21/2009 Patient Education: Patient Medication Summary Completed 09/21/2009 Appointment: Lizzie Kelly WPtel: [phone] [facility] US CHECK UP 09/20/2009 Appointment: Lizzie Kelly WPtel: [phone] [facility] US FOLLOW UP 09/19/2009 Referral: Alf Lang WPtel: 1 [facility] [place] Referral Appointment Requested Referral: Singh Pina WPtel: [address] [facility] [place] Referral Appointment Requested Referral: Aditya Stone WPtel: [address] [facility] [address] [place], [place] [id number] [place] Referral Appointment Requested Instructions Comment Date [...] brand synthroid and recheck thyroid lab in [facility] 07/19/2015 . Lab discussed Change synthroid [...] going to see her migraine doctor in [place] in the near future(Dr Cook) Pt will [...]
--- OUTSIDE RECORDS SUMMARY | 2022-09-10 17:03 | XMS REPORT | CCD ---
Author Author Marcella Vanessa D.O. 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 Name Role Phone Jayna Vanessa D.O., PP Unavailable CCM Unavailable Summary Purpose Interface Exchange Insurance Providers Payer name Policy type / Coverage type Covered libertarian ID Effective Begin Date Effective End Date [employer] Commercial Insurance [id number] Unknown Commercial Insurance [id number] Unknown Family history Side Diagnosis Age At Onset Heart disease Unknown Diabetes Unknown Sister Diagnosis Age At Onset Diabetes Unknown Brother Diagnosis Age At Onset Diabetes Unknown Mother Diagnosis Age At Onset Heart disease Unknown Father Diagnosis Age At Onset Heart disease Unknown Social History Social History Element Codes Description Effective Dates Tobacco history SNOMED CT: 447331789 Never smoker 04/04/2011 Marital status Unknown 09/21/2009 [...] gastroenteritis ICD-10: K52.9 ICD-9: 558.9 07/05/2020 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 11/28/2016 Active [...] ANXIETY STATE NOS ICD-9: 300.00 03/05/2013 Active 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 02/04/2013 A ctive DYSPNEA [...] Fill Instructions Macrobid 100 mg capsule RxNorm: 445719 Take 1 Capsule(s) Oral t wo times a day 09/05/2022 09/11/2022 Active bupropion HCl XL 300 mg 24 hr tablet, extended release RxNor m: 315778 TAKE 1 Tablet BY MOUTH DAILY IN THE MORNING (replaces 150mg DOSE) 08/29/2022 02/24/2023 Active levothyroxine 150 mcg tablet RxNorm: 330668 TAKE ONE TA BLET BY MOUTH EVERY IN THE MORNING 08/29/2022 02/24/2023 Active ciprofloxacin 250 mg tablet RxNorm: 137787 Take 1 Tablet(s) Ora l Q12H 06/29/2022 07/03/2022 Inactive levothyroxine 150 mcg tablet RxNorm: 383537 Take 1 Tablet(s) Or al QAM 06/03/2022 06/03/2022 Inactive Wellbutrin XL 300 mg 24 hr tablet, extended release RxNorm: 652716 Take 1 Tablet(s) Oral QAM replaces 150mg dose 05/28/2022 05/28/2022 Inactive Xyzal 5 mg tablet RxNorm: 036074 Take 1 Tablet(s) Oral QPM 05/10/2010/06/2022 Active Claritin 10 mg tablet RxNorm: 955727 Take 1 Tablet(s) Oral QAM 04/2409/06/2022 Active Flonase Allergy Relief 50 mcg/actuation nasal spray,suspensi on RxNorm: 8146478 Take 1 [place] Nasal two times a day 05/10/2022 06/08/2022 Inactive Wellbutrin XL 150 mg 24 hr tablet, extended release RxNorm: 647226 Take 1 Tablet(s) Oral QAM 05/10/2022 05/27/2022 Inactive sumatriptan 100 mg tablet RxNorm: 345008 1 Tablet(s) Or al after onset of migraine; may repeat after 2 hours if headache returns, not to exceed 200mg in 24hrs replaces rizatriptan 04/19/2022 04/19/2022 Inactive sumatriptan 100 mg tablet RxNorm: 266054 1 Tablet(s) Or al after onset of migraine; may repeat after 2 hours if headache returns, not to exceed 200mg in 24hrs replaces rizatriptan 04/19/2022 04/19/2022 Inactive propranolol 20 mg tablet RxNorm: 392572 TAKE 1 TABLET BY MOUTH TWICE DAILY 04/18/2022 10/14/2022 Active rizatriptan 10 mg disintegrating tablet RxNorm: 599066 Take 1 Tablet(s) Oral on top of tongue, allow to dissolve then swallow once, may repeat every 2 hrs; max 30 mg/24hrs 04/18/2022 04/18/2022 Inactive prednisone 20 mg tablet RxNorm: 455428 Take 1 Tablet(s) Oral tw o times a day 02/15/2022 02/21/2022 Inactive Nurtec ODT 75 mg disintegrating tablet RxNorm: 9484899 T ary 1 Tablet(s) Oral per 24 hours as needed for migraine 02/09/2022 02/09/2022 Inactive Nurtec ODT 75 mg disintegrating tablet RxNorm: 9792231 T ary 1 Tablet(s) Oral per 24 hours as needed for migraine 02/09/2022 02/09/2022 Inactive fluticasone propionate 50 mcg/actuation nasal spray,suspensi on RxNorm: 2421840 SPRAY ONE SPRAY IN EACH NOSTRIL TWICE DAILY NEEDED 02/05/20222021 Inactive levothyroxine 150 mcg tablet RxNorm: 275842 Take 1 Tablet(s) Or al QAM 02/04/2022 02/04/2022 Inactive albuterol sulfate HFA 90 mcg/actuation aerosol inhaler RxNor m: 4734672 Inhale 2 Puff(s) Oral Q4H as needed 01/05/2022 04/04/2022 Inactive pantoprazole 40 mg tablet,delayed release RxNorm: 578057 Take 1 Tablet(s) Oral QD 01/04/2022 07/02/2022 Inactive propranolol 20 mg tablet RxNorm: 760097 TAKE 1 TABLET BY MOUTH TWICE DAILY 01/04/2022 04/17/2022 Inactive levothyroxine 150 mcg tablet RxNorm: 623304 Take 1 Tablet(s) Or al QAM 12/05/2021 12/05/2021 Inactive metronidazole 500 mg tablet RxNorm: 747228 Take 1 Table t(s) Oral two times a day 11/29/2021 12/05/2021 Inactive Singulair 10 mg tablet RxNorm: 037841 Take 1 Tablet(s) Oral QPM 06/202105/09/2022 Inactive Diflucan 100 mg tablet RxNorm: 453153 Take 1 Tablet(s) Oral QD 06/202111/28/2021 Inactive pantoprazole 40 mg tablet,delayed release RxNorm: 431840 Take 1 Tablet(s) Oral QD 11/06/2021 11/06/2021 Inactive fluticasone propionate 50 mcg/actuation nasal spray,suspensi on RxNorm: 5017679 SPRAY ONE SPRAY IN EACH NOSTRIL TWICE DAILY NEEDED 11/03/20212021 Inactive scopolamine 1 mg over 3 days transdermal patch RxNorm: 73687 2 Apply 1 Unit Dose Transdermal Q72H behind ear 10/30/2021 02/05/2022 Inactive albuterol sulfate HFA 90 mcg/actuation aerosol inhaler RxNor m: 8725336 Inhale 2 Puff(s) Oral Q4H as needed 10/05/2021 11/24/2021 Inactive pantoprazole 40 mg tablet,delayed release RxNorm: 105868 Take 1 Tablet(s) Oral QD 10/05/2021 10/05/2021 Inactive meloxicam 7.5 mg tablet RxNorm: 507558 Take 1 Tablet(s) Oral QD for pain 09/05/2021 09/11/2021 Inactive baclofen 10 mg tablet RxNorm: 029563 Take 0.5-1 Tablet( s) Oral three times per week as needed for muscle spasm 09/05/2021 02/05/2022 Inactive prednisone 20 mg tablet RxNorm: 722465 Take 1 Tablet(s) Oral QD 08/202108/28/2021 Inactive pantoprazole 40 mg tablet,delayed release RxNorm: 676161 Take 1 Tablet(s) Oral QD 07/07/2021 09/04/2021 Inactive fluticasone propionate 50 mcg/actuation nasal spray,suspensi on RxNorm: 5778059 Take 1 [place] Nasal two times a day in each nostrilas needed 07/04/2021 10/01/2021 Inactive Decadron 6 mg tablet RxNorm: 727340 Take 1 Tablet(s) Oral QD 202107/08/2021 Inactive albuterol sulfate HFA 90 mcg/actuation aerosol inhaler RxNor m: 0546743 Inhale 2 Puff(s) Oral Q4H as needed 06/08/2021 09/05/2021 Inactive propranolol 20 mg tablet RxNorm: 163056 TAKE 1 TABLET BY MOUTH TWICE DAILY 06/08/2021 06/08/2021 Inactive pantoprazole 40 mg tablet,delayed release RxNorm: 966185 Take 1 Tablet(s) Oral QD 04/09/2021 06/07/2021 Inactive ProAir HFA 90 mcg/actuation aerosol inhaler RxNorm: 307661 2 Puff(s) Inhalation Q4H as needed 03/13/2021 03/13/2021 Inactive citalopram 10 mg tablet RxNorm: 121055 1 Tablet(s) Oral two antonio es a day 03/13/2021 02/05/2022 Inactive levothyroxine 150 mcg tablet RxNorm: 097900 TAKE 1 Tabl et BY MOUTH EVERY MORNING (REPLACES 137 MCG DOSE) 03/09/2021 03/09/2021 Inactive pantoprazole 40 mg tablet,delayed release RxNorm: 645433 Take 1 Tablet(s) Oral QD 02/08/2021 04/08/2021 Inactive triamcinolone acetonide 0.1 % topical cream RxNorm: 9312199 Take Application Topical two times a day to arm rash 01/19/2021 01/19/2021 Inactive prednisone 20 mg tablet RxNorm: 239913 Take 1 Tablet(s) Oral QD 01/23/2021 Inactive levothyroxine 150 mcg tablet RxNorm: 364592 Take 1 Tabl et(s) Oral QAM replaces 137mcg dose 01/03/2021 01/03/2021 Inactive prednisone 20 mg tablet RxNorm: 633452 Take 2 Tablet(s) Oral QD 01/202112/03/2020 Inactive promethazine-DM 6.25 mg-15 mg/5 mL oral syrup RxNorm: 275413 Take 5 Milliliter(s) Oral Every 6 hours as needed, not to exceed 30 mL in 24 hours 11/29/2020 12/03/2020 Inactive doxycycline hyclate 100 mg capsule RxNorm: 9548715 1 Cap kimi(s) Oral two times a day 09/29/2020 10/05/2020 Inactive Lalita-D 12 Hour 60 mg-120 mg tablet,extended release RxNor m: 909547 1 Tablet(s) Oral QD 09/19/2020 10/03/2020 Inactive ProAir HFA 90 mcg/actuation aerosol inhaler RxNorm: 551976 2 Inhalation Q4H as needed 09/19/2020 09/19/2020 Inactive propranolol 20 mg tablet RxNorm: 750502 TAKE 1 TABLET BY MOUTH TWICE DAILY 09/15/2020 09/15/2020 Inactive pantoprazole 40 mg tablet,delayed release RxNorm: 064092 1 Tabl et(s) Oral QD 09/09/2020 09/08/2020 Inactive pantoprazole 40 mg tablet,delayed release RxNorm: 779630 1 Tabl et(s) Oral QD 09/09/2020 11/07/2020 Inactive propranolol 20 mg tablet RxNorm: 686863 TAKE 1 TABLET BY MOUTH TWICE DAILY 08/24/2020 09/09/2020 Inactive levothyroxine 137 mcg tablet RxNorm: 642662 1 Tablet(s) Oral QD 08/202001/02/2021 Inactive eqldpdsh-fdmlrufht-obcfwefq 3.5 mg/mL-10,000 unit/mL-0 .1% eye drops RxNorm: 474554 4 Drop(s) Otic three times a day 08/10/2020 02/05/2022 Inactive prednisone 20 mg tablet RxNorm: 272899 1 Tablet(s) Oral two antonio es a day 08/01/2020 08/08/2020 Inactive pantoprazole 40 mg tablet,delayed release RxNorm: 402616 1 Tabl et(s) Oral QD 07/13/2020 09/08/2020 Inactive ondansetron HCl 4 mg tablet RxNorm: 656829 1 Tablet(s) Oral Q4H as needed for nausea 07/13/2020 05/09/2022 Inactive levothyroxine 137 mcg tablet RxNorm: 488734 1 Tablet(s) Oral QD 08/23/2020 Inactive pantoprazole 40 mg tablet,delayed release RxNorm: 185956 1 Tabl et(s) Oral QD 07/13/2020 07/12/2020 Inactive ondansetron HCl 4 mg tablet RxNorm: 890505 1 Tablet(s) Oral Q4H as needed for nausea 07/05/2020 07/12/2020 Inactive Flagyl 500 mg tablet RxNorm: 856796 1 Tablet(s) Oral three time s a day 07/05/2020 07/12/2020 Inactive Fish Oil 1,000 mg (120 mg-180 mg) capsule RxNorm: 1 Caps ule(s) Oral QD 06/23/2020 09/18/2020 Inactive rosuvastatin 10 mg tablet RxNorm: 394530 1 Tablet(s) Oral MWF 06/2306/22/2020 Inactive rosuvastatin 10 mg tablet RxNorm: 442193 1 Tablet(s) Oral MWF 06/2302/05/2022 Inactive fluconazole 100 mg tablet RxNorm: 381394 1 Tablet(s) Oral QOD 05/1706/21/2020 Inactive Macrobid 100 mg capsule RxNorm: 037211 1 Capsule(s) Oral two ti mes a day 05/17/2020 05/24/2020 Inactive levothyroxine 137 mcg tablet RxNorm: 293107 TAKE 1 TABLET BY [facility] ONCE DAILY 05/16/2020 07/12/2020 Inactive Eliquis 5 mg tablet RxNorm: 2462146 1 Tablet(s) Oral two times a da y 04/25/2020 02/05/2022 Inactive propranolol 20 mg tablet RxNorm: 899570 TAKE 1 TABLET BY MOUTH TWICE DAILY 04/25/2020 08/23/2020 Inactive doxycycline hyclate 100 mg capsule RxNorm: 7805923 1 Cap kimi(s) Oral two times a day 03/24/2020 03/31/2020 Inactive doxycycline hyclate 100 mg capsule RxNorm: 5300458 1 Cap kimi(s) Oral two times a day 03/24/2020 03/23/2020 Inactive propranolol 20 mg tablet RxNorm: 701001 TAKE 1 TABLET BY MOUTH TWICE DAILY 03/15/2020 04/13/2020 Inactive Eliquis 5 mg tablet RxNorm: 5565619 1 Tablet(s) Oral two times a da y 03/14/2020 04/24/2020 Inactive Eliquis 5 mg tablet RxNorm: 0258016 1 Tablet(s) Oral two times a da y 03/14/2020 03/13/2020 Inactive levofloxacin 500 mg tablet RxNorm: 273865 1 Tablet(s) Oral QD 02/1802/26/2020 Inactive levofloxacin 500 mg tablet RxNorm: 908602 1 Tablet(s) Oral QD 02/1802/18/2020 Inactive Tessalon Perles 100 mg capsule RxNorm: 525914 1 Capsule (s) Oral three times a day as needed 02/16/2020 02/25/2020 Inactive levothyroxine 137 mcg tablet RxNorm: 841060 TAKE 1 TABLET BY [facility] ONCE DAILY 02/15/2020 03/15/2020 Inactive ProAir HFA 90 mcg/actuation aerosol inhaler RxNorm: 497857 2 Inhalation Q4H as needed 02/11/2020 09/18/2020 Inactive Medrol (Isaiah) 4 mg tablets in a dose pack RxNorm: 385629 Tablet( s) Oral 02/11/2020 02/11/2020 Inactive levothyroxine 137 mcg tablet RxNorm: 343257 TAKE 1 TABLET BY [facility] ONCE DAILY 12/16/2019 01/14/2020 Inactive propranolol 20 mg tablet RxNorm: 235475 TAKE 1 TABLET BY MOUTH TWICE DAILY 12/16/2019 01/14/2020 Inactive levothyroxine 137 mcg tablet RxNorm: 821600 TAKE 1 TABLET BY [facility] ONCE DAILY 10/16/2019 11/14/2019 Inactive prednisone 20 mg tablet RxNorm: 584740 1 Tablet(s) Oral two times a day for rash/hives 09/29/2019 10/04/2019 Inactive Probiotic 10 billion cell capsule RxNorm: 3476642 1 Capsule(s) O ral QD 09/14/2019 02/10/2020 Inactive Bactrim DS 800 mg-160 mg tablet RxNorm: 404427 1 Tablet(s) Oral two times a day 09/14/2019 09/13/2019 Inactive citalopram 10 mg tablet RxNorm: 605084 1 Tablet(s) Oral two antonio es a day 09/14/2019 12/20/2019 Inactive hydroxychloroquine 200 mg tablet RxNorm: 596339 1 Table t(s) Oral two times a day 09/14/2019 02/05/2022 Inactive Bactrim DS 800 mg-160 mg tablet RxNorm: 320891 1 Tablet(s) Oral two times a day 09/14/2019 09/24/2019 Inactive Cipro 250 mg tablet RxNorm: 346207 1 Tablet(s) Oral two times a day 09/02/2019 09/08/2019 Inactive levothyroxine 137 mcg tablet RxNorm: 318011 1 Tablet(s) Oral QD 10/10/2019 Inactive levothyroxine 137 mcg tablet RxNorm: 654898 1 Tablet(s) Oral QD 08/11/2019 Inactive propranolol 20 mg tablet RxNorm: 268837 TAKE 1 TABLET BY MOUTH TWICE DAILY 06/18/2019 12/14/2019 Inactive 06/18/2019 11:09:41 AM Cipro 250 mg tablet RxNorm: 276508 1 Tablet(s) Oral two times a day 04/17/2019 04/16/2019 Inactive Cipro 250 mg tablet RxNorm: 269785 1 Tablet(s) Oral two times a day 04/17/2019 04/24/2019 Inactive Macrobid 100 mg capsule RxNorm: 953105 1 Capsule(s) Oral two ti mes a day 04/15/2019 04/16/2019 Inactive metronidazole 500 mg tablet RxNorm: 852512 1 Tablet(s) Oral thr ee times a day 03/18/2019 03/28/2019 Inactive Bactrim DS 800 mg-160 mg tablet RxNorm: 812718 1 Tablet(s) Oral two times a day 03/18/2019 03/18/2019 Inactive Cipro 250 mg tablet RxNorm: 191701 1 Tablet(s) PO BID 01/26/201901/22 Inactive Flagyl 500 mg tablet RxNorm: 191790 1 Tablet(s) PO TID 01/26/201904/2019 Inactive prednisone 20 mg tablet RxNorm: 135195 1 Tablet(s) PO B ID for 4 days then 1 po daily for 4 days 01/08/2019 03/17/2019 Inactive doxycycline hyclate 100 mg capsule RxNorm: 8868173 1 Capsule(s) PO BID 01/08/2019 01/14/2019 Inactive doxycycline hyclate 100 mg capsule RxNorm: 9018012 1 Capsule(s) PO BID 01/08/2019 01/07/2019 Inactive propranolol 20 mg tablet RxNorm: 586783 1 Tablet(s) PO BID 12/24/1906/17/2019 Inactive Bactrim DS 800 mg-160 mg tablet RxNorm: 412488 1 Tablet (s) PO BID repeat urine culture 48 hours after antibiotics completed. 12/15/2018 12/14/2018 In active Bactrim DS 800 mg-160 mg tablet RxNorm: 231898 1 Tablet (s) PO BID repeat urine culture 48 hours after antibiotics completed. 12/15/2018 12/19/2018 In active levothyroxine 137 mcg tablet RxNorm: 947363 1 Tablet(s) PO QD 12/0906/06/2019 Inactive meclizine 25 mg tablet RxNorm: 288982 1 Tablet(s) PO TID for di zziness 10/30/2018 11/08/2018 Inactive doxycycline hyclate 100 mg tablet RxNorm: 7871951 1 Tablet(s) PO BI D 10/07/2018 10/16/2018 Inactive albuterol sulfate HFA 90 mcg/actuation aerosol inhaler RxNor m: 576482 2 Puff(s) INH Q4H as needed 10/07/2018 02/10/2020 Inactive chlorpheniramine 4 mg tablet RxNorm: 1689065 1 Tablet(s) PO QHS for allergies 10/07/2018 03/17/2019 Inactive Tessalon 200 mg capsule RxNorm: 197228 1 Capsule(s) PO TID 10/08/1910/26/2018 Inactive doxycycline hyclate 100 mg tablet RxNorm: 2828455 1 Tablet(s) PO BI D 10/07/2018 10/06/2018 Inactive Tessalon 200 mg capsule RxNorm: 885774 1 Capsule(s) PO TID 10/08/1910/06/2018 Inactive levothyroxine 137 mcg tablet RxNorm: 042136 1 Tablet(s) PO QD 08/0512/02/2018 Inactive propranolol 20 mg tablet RxNorm: 637851 1 Tablet(s) PO BID 06/23/2012/19/2018 Inactive chlorpheniramine 4 mg tablet RxNorm: 1195175 1 Tablet(s) PO QHS for allergies 06/23/2018 08/21/2018 Inactive levothyroxine 137 mcg tablet RxNorm: 765866 1 Tablet(s) PO QD 06/0308/01/2018 Inactive levothyroxine 137 mcg tablet RxNorm: 965074 1 Tablet(s) PO QD 06/0306/02/2018 Inactive Synthroid 150 mcg tablet RxNorm: 138411 1 Tablet(s) PO QD 04/03/2018 06/22/2018 Inactive Synthroid 150 mcg tablet RxNorm: 867619 1 Tablet(s) PO QD 04/03/2018 04/02/2018 Inactive propranolol 20 mg tablet RxNorm: 150500 1 Tablet(s) PO BID 03/17/20 18 06/14/2018 Inactive propranolol 20 mg tablet RxNorm: 645840 1 Tablet(s) PO BID 03/17/20 18 06/21/2020 Inactive Lancets,Ultra Thin RxNorm: Miscellaneous Use to test blood sugar daily and as needed (Dx: E11.65) 02/28/2018 05/09/2022 Inactive Contour Test Strips RxNorm: Miscellaneous Test b lood sugar daily and as needed (Dx: E11.65) 02/28/2018 05/09/2022 Inactive Contour Meter RxNorm: 1 Miscellaneous DX: E11.65 02/27/20182021 Inactive DX: E11.65 Synthroid 175 mcg tablet RxNorm: 606705 1 Tablet(s) PO QD 01/28/2018 04/02/2018 Inactive Synthroid 175 mcg tablet RxNorm: 764783 1 Tablet(s) PO QD 01/16/2018 04/02/2018 Inactive Medrol (Isaiah) 4 mg tablets in a dose pack RxNorm: 313585 Tablet(s) P O 10/16/2017 01/15/2018 Inactive cyclobenzaprine 7.5 mg tablet RxNorm: 951818 1/2-1 Tablet(s) PO TID as needed 10/16/2017 06/22/2018 Inactive pantoprazole 40 mg tablet,delayed release RxNorm: 769555 1 Tabl et(s) PO QD 08/21/2017 06/22/2018 Inactive Nexium 40 mg capsule,delayed release RxNorm: 443858 1 Capsule(s ) PO QD 08/20/2017 08/20/2017 Inactive doxycycline hyclate 100 mg capsule RxNorm: 3899872 1 Capsule(s) PO BID 08/13/2017 08/12/2017 Inactive doxycycline hyclate 100 mg capsule RxNorm: 4646992 1 Capsule(s) PO BID 08/13/2017 08/19/2017 Inactive Tessalon Perles 100 mg capsule RxNorm: 532491 1 Capsule(s) PO T ID as needed 07/29/2017 08/07/2017 Inactive prednisone 20 mg tablet RxNorm: 496142 1 Tablet(s) PO BID 07/25/2017 07/27/2017 Inactive albuterol sulfate HFA 90 mcg/actuation aerosol inhaler RxNor m: 177337 2 Puff(s) INH Q4H as needed 07/25/2017 10/06/2018 Inactive doxycycline hyclate 100 mg capsule RxNorm: 1916290 1 Capsule(s) PO BID 06/10/2017 06/19/2017 Inactive prednisone 20 mg tablet RxNorm: 529259 1 Tablet(s) PO T ID for 2 days then 1 po BID for 2 days then 1 daily for 3 days 06/10/2017 08/12/2017 Inactive fenofibrate micronized 134 mg capsule RxNorm: 966930 TAKE 1 CAP KIMI DAILY 06/03/2017 06/22/2018 Inactive Zithromax Z-Isaiah 250 mg tablet RxNorm: 821189 Tablet(s) PO Take as directed 05/28/2017 06/09/2017 Inactive prednisone 20 mg tablet RxNorm: 229095 2 Tablet(s) PO QD 05/28/2017 1 08/01/2016 Inactive Tessalon Perles 100 mg capsule RxNorm: 389792 1 Capsule(s) PO T ID as needed 05/28/2017 06/09/2017 Inactive Janumet XR 100 mg-1,000 mg tablet,extended release RxNorm: 1 245101 1 Tablet(s) PO QD 02/14/2017 06/22/2018 Inactive fluoxetine 40 mg capsule RxNorm: 090849 1 Capsule(s) PO QD 02/15/2006/22/2018 Inactive Vitamin D2 50,000 unit capsule RxNorm: 772734 1 Capsule (s) PO TAKE 1 CAPSULE BY MOUTH TWICE WEEKLY 02/11/2017 07/10/2017 Inactive Generic For:* DRISDOL [id number] 02/03/2015 10:10:59 AM Janumet XR 100 mg-1,000 mg tablet,extended release RxNorm: 1 379430 1 Tablet(s) PO QD 09/24/2016 10/06/2018 Inactive Vitamin D2 50,000 unit capsule RxNorm: 391823 Capsule(s ) TAKE 1 CAPSULE BY MOUTH TWICE WEEKLY 09/11/2016 02/11/2017 Inactive Generic For:*DRI SDOL 14330SGE 02/03/2015 10:10:59 AM Pepcid 20 mg tablet RxNorm: 901616 Tablet(s) PO TAKE 1 TABLET BY MOUTH TWICE DAILY. 06/14/2016 06/13/2016 Inactive fluoxetine 40 mg capsule RxNorm: 327517 1 Capsule(s) PO QD 06/14/20 16 12/10/2016 Inactive loratadine 10 mg tablet RxNorm: 328788 1 Tablet(s) PO QD 1 Tabl et(s) PO BID 06/14/2016 04/03/2017 Inactive [AttnRPh: Saving ryan ly/adjudicate RxGRP:SG20 RxBIN:[id number] RxPCN: ID#:[id number]] Vitamin D2 50,000 unit capsule RxNorm: 563578 Capsule(s ) TAKE 1 CAPSULE BY MOUTH TWICE WEEKLY 06/14/2016 09/10/2016 Inactive Generic For:*DRI SDOL [id number] 02/03/2015 10:10:59 AM Synthroid 175 mcg tablet RxNorm: 958055 1 Tablet(s) PO Saturday t hrough Saturday QD 06/05/2016 01/15/2018 Inactive Synthroid 150 mcg tablet RxNorm: 069418 1 Tablet(s) PO Sat and Sun 11/09/2015 06/04/2016 Inactive Synthroid 175 mcg tablet RxNorm: 201579 1 Tablet(s) PO Saturday t hrough Saturday11/09/2015 06/04/2016 Inactive Synthroid 150 mcg tablet RxNorm: 067072 1 Tablet(s) PO Sat and Sun , Sat, Sun 11/09/2015 11/08/2015 Inactive Janumet XR 100 mg-1,000 mg tablet,extended release RxNorm: 1 918890 TAKE 1 TABLET DAILY 09/30/2015 09/24/2016 Inactive azithromycin 500 mg tablet RxNorm: 279272 1 Tablet(s) PO QD 016 07/25/2015 Inactive azithromycin 500 mg tablet RxNorm: 731200 1 Tablet(s) PO QD 016 08/01/2015 Inactive loratadine 10 mg tablet RxNorm: 329573 1 Tablet(s) PO BID 04/06/2015 06/14/2016 Inactive [AttnRPh: Saving apply/adjudicate RxGRP: SG20 RxBIN:[id number] RxPCN: ID#:[id number]] Synthroid 175 mcg tablet RxNorm: 206815 1 Tablet(s) PO M, W, F 10/201411/08/2015 Inactive Synthroid 150 mcg tablet RxNorm: 433133 1 Tablet(s) PO QD Tu, T h, Sat, Sun 03/28/2015 11/08/2015 Inactive propranolol 20 mg tablet RxNorm: 250699 1 Tablet(s) PO BID 02/09/20 15 06/13/2016 Inactive fluoxetine 40 mg capsule RxNorm: 058909 1 Capsule(s) PO QD 02/09/20 15 06/14/2016 Inactive Vitamin D2 50,000 unit capsule RxNorm: 045316 TAKE 1 CA PSULE BY MOUTH TWICE WEEKLY 02/03/2015 06/14/2016 Inactive Generic For:*DRI SDOL [id number] 02/03/2015 10:10:59 AM Lipitor 80 mg tablet RxNorm: 456609 1 Tablet(s) PO QD 01/24/201507/26 Inactive [AttnRPh: Saving apply/adjudicate RxGRP: SG20 RxBIN:[id number] RxPCN: ID#:[id number]] Bactrim DS 800 mg-160 mg tablet RxNorm: 322704 1 Tablet(s) PO BID 0 01/12/2015 01/11/2015 Inactive Synthroid 150 mcg tablet RxNorm: 857792 1 Tablet(s) PO QD 01/12/2015 03/27/2015 Inactive Bactrim DS 800 mg-160 mg tablet RxNorm: 231656 1 Tablet(s) PO BID 0 01/12/2015 01/18/2015 Inactive fluoxetine 40 mg capsule RxNorm: 370919 1 Capsule(s) PO QD 01/12/20 15 02/07/2015 Inactive Synthroid 137 mcg tablet RxNorm: 527349 1 Tablet(s) PO QD 12/08/2014 01/11/2015 Inactive [AttnRPh: Saving apply/adjudicate RxGRP: SG20 RxBIN:[id number] RxPCN: ID#:[id number]] Medrol (Isaiah) 4 mg tablets in a dose pack RxNorm: 375149 6 Tablet(s) PO QD --then as directed 11/24/2014 11/29/2014 Inactive albuterol sulfate HFA 90 mcg/actuation aerosol inhaler RxNor m: 244071 2 Puff(s) INH Q4H as needed 10/27/2014 07/24/2017 Inactive phenazopyridine 100 mg tablet RxNorm: 0300382 1 Tablet(s) PO TID 11/07/2015 Inactive [AttnRPh: Saving apply/adjud icate RxGRP:SG20 RxBIN:[id number] RxPCN: ID#:[id number]] Macrobid 100 mg capsule RxNorm: 290288 1 Capsule(s) PO BID 10/28/19 15 11/02/2014 Inactive [SAVINGS FOR NON-COVERED RUBIO GS -- BIN:558407, PCN: ASPROD1, Group: XXXXX, ID# [id number], Questions: . THIS IS NOT INSURANCE.] prednisone 20 mg tablet RxNorm: 616125 1 Tablet(s) PO BID 10/27/2014 10/31/2014 Inactive AttnRPh: Saving apply/adjudicate RxGRP:S G20 RxBIN:[id number] RxPCN:HT ID#:[id number]: Saving apply/adjudicate RxGRP:SG20 RxBIN:[id number] RxPCN:HT ID#:[id number] Macrobid 100 mg capsule RxNorm: 515270 1 Capsule(s) PO BID 09/24/19 15 09/29/2014 Inactive [SAVINGS FOR NON-COVERED RUBIO GS -- BIN:913782, PCN: ASPROD1, Group: XXXXX, ID# [id number], Questions: . THIS IS NOT INSURANCE.] phenazopyridine 100 mg tablet RxNorm: 4608931 1 Tablet(s) PO TID 09/24/2014 Inactive [SAVINGS FOR NON-COVERED RUBIO GS -- BIN:913346, PCN: ASPROD1, Group: XXXXX, ID# [id number], Questions: . THIS IS NOT INSURANCE.] propranolol 60 mg tablet RxNorm: 947226 1 Tablet(s) PO QD 07/26/2014 02/07/2015 Inactive [SAVINGS FOR UNINSURED PATIENTS -- BIN:0 [id number], PCN: ASPROD1, Group: [id number], ID# [id number], Process claim through [employer], for questions: . THIS IS NOT INSURANCE.] loratadine 10 mg tablet RxNorm: 133376 1 Tablet(s) PO BID 07/12/2014 07/11/2014 Inactive [AttnRPh: Saving apply/adjudicate RxGRP: [id number] RxBIN:[id number] RxPCN: ID#:[id number]] loratadine 10 mg tablet RxNorm: 596875 1 Tablet(s) PO BID 07/12/2014 10/06/2018 Inactive [SAVINGS FOR UNINSURED PATIENTS -- BIN:0 48278, PCN: ASPROD1, Group: [id number], ID# [id number], Process claim through [employer], for questions: . THIS IS NOT INSURANCE.] Vitamin D2 50,000 unit capsule RxNorm: 419169 1 Capsule (s) PO Take 1 capsule by mouth twice weekly 05/18/2014 02/02/2015 Inactive Pepcid 20 mg tablet RxNorm: 065612 TAKE 1 TABLET BY MOUTH TWICE DAILY. 05/18/2014 06/14/2016 Inactive Generic For:PEPCID 2 0MG 05/18/2014 11:28:51 AM Janumet XR 100 mg-1,000 mg tablet,extended release RxNorm: 1 460018 1 Tablet(s) PO QD 05/12/2014 08/09/2014 Inactive [SAVINGS FOR UNI NSURED PATIENTS -- BIN:[id number], PCN: ASPROD1, Group: [id number], ID# [id number], Process claim through [employer], for questions: . THIS IS NOT INSURANCE.] Voltaren 1 % topical gel RxNorm: 427488 TOP BID 04/21/2014 5 Inactive Apply to affected areas 2-3 times daily as needed. Trilipix 135 mg capsule,delayed release RxNorm: 749367 1 Tablet(s) PO QD 1 Capsule(s) PO QD 04/21/2014 09/17/2014 Inactive may do 90 day f ill if desired Synthroid 137 mcg tablet RxNorm: 979697 1 Tablet(s) PO QD 03/30/2014 09/25/2014 Inactive [AttnRPh: Saving apply/adjudicate RxGRP: SG20 RxBIN:[id number] RxPCN: ID#:[id number]] Cipro 250 mg tablet RxNorm: 872525 1 Tablet(s) PO BID 03/30/201403/24 Inactive [SAVINGS FOR UNINSURED PATIENTS -- BIN:0 [id number], PCN: ASPROD1, Group: [id number], ID# [id number], Process claim through MedImpact, for questions: . THIS IS NOT INSURANCE.] Janumet XR 100 mg-1,000 mg tablet,extended release RxNorm: 1 416197 2 Tablet(s) PO QD 01/06/2014 01/05/2014 Inactive [SAVINGS FOR UNI NSURED PATIENTS -- BIN:293071, PCN: ASPROD1, Group: [id number], ID# [id number], Process claim through MedImp[employer], for questions: . THIS IS NOT INSURANCE.] Janumet XR 100 mg-1,000 mg tablet,extended release RxNorm: 1 890614 1 Tablet(s) PO QD 01/06/2014 04/05/2014 Inactive [SAVINGS FOR UNI NSURED PATIENTS -- BIN:[id number], PCN: ASPROD1, Group: [id number], ID# [id number], Process claim through MedImp[employer], for questions: . THIS IS NOT INSURANCE.] propranolol 60 mg tablet RxNorm: 712106 1 Tablet(s) PO QD 12/28/2013 07/26/2014 Inactive [AttnRPh: Saving apply/adjudicate RxGRP: SG20 RxBIN:[id number] RxPCN: ID#:[id number]] Synthroid 150 mcg tablet RxNorm: 622627 1 Tablet(s) PO QD brand onl y 12/28/2013 04/20/2014 Inactive [AttnRPh: Saving apply/adjud icate RxGRP:SG20 RxBIN:[id number] RxPCN:HT ID#:[id number]] Vitamin D2 50,000 unit capsule RxNorm: 332268 1 Capsule (s) PO Take 1 capsule by mouth twice weekly 12/02/2013 05/17/2014 Inactive Lipitor 80 mg tablet RxNorm: 446409 1 Tablet(s) PO QD 11/24/201305/25 Inactive [AttnRPh: Saving apply/adjudicate RxGRP: SG20 RxBIN:[id number] RxN: ID#:[id number]] loratadine 10 mg tablet RxNorm: 871491 1 Tablet(s) PO BID 11/17/2013 07/12/2014 Inactive fluoxetine 20 mg capsule RxNorm: 441220 1 Capsule(s) PO QAM TAKE ONE CAPSULE BY MOUTH ONCE DAILY IN THE MORNING. 11/04/2013 01/10/2015 Inactive Generic For:PROZAC 20MG Generic For:PROZAC 20MG 06/23/2013 11:55:55 AM [AttnRPh: Saving apply/adjudicate RxGRP:SG20 RxBIN:[id number] RxPCN: ID#:[id number]] Vytorin 10 mg-80 mg tablet RxNorm: 6571382 Tablet(s) PO TAKE ONE TABLET BY MOUTH ONCE DAILY IN THE EVENING. 09/30/2013 11/23/2013 Inactive Trilipix 135 mg capsule,delayed release RxNorm: 316961 1 Capsul e(s) PO QD 07/15/2013 04/21/2014 Inactive may do 90 day fill i f desired Voltaren 1 % topical gel RxNorm: 072835 TOP BID 07/15/2013 4 Inactive Apply to affected areas 2-3 times daily as needed. Wellbutrin XL 300 mg 24 hr tablet, extended release RxNorm: 327248 1 Tablet(s) PO QAM 06/29/2013 04/03/2017 Inactive fluoxetine 20 mg capsule RxNorm: 170235 1 Capsule(s) PO QAM TAKE ONE CAPSULE BY MOUTH ONCE DAILY IN THE MORNING. 06/29/2013 11/04/2013 Inactive Generic For:PROZAC 20MG Generic For:PROZAC 20MG 06/23/2013 11:55:55 AM fluoxetine 20 mg capsule RxNorm: 214270 Capsule(s) PO T ARY ONE CAPSULE BY MOUTH ONCE DAILY IN THE MORNING. 06/23/2013 06/28/2013 Inactive Gener ic For:PROZAC 20MG Generic For:PROZAC 20MG 06/23/2013 11:55:55 AM Synthroid 150 mcg tablet RxNorm: 568800 1 Tablet(s) PO QD brand onl y 06/08/2013 12/04/2013 Inactive Vytorin 10 mg-80 mg tablet RxNorm: 1127900 1 Tablet(s) PO QD 201209/05/2013 Inactive TAKE 1 TABLET BY MOUTH DAILY propranolol 60 mg tablet RxNorm: 942679 1 Tablet(s) PO QD 06/08/2013 12/04/2013 Inactive Pepcid 20 mg tablet RxNorm: 225963 Tablet(s) PO TAKE 1 TABLET BY MOUTH TWICE DAILY. 06/04/2013 11/23/2013 Inactive fluoxetine 20 mg capsule RxNorm: 731451 1 Capsule(s) PO QAM 013 06/22/2013 Inactive Wellbutrin XL 300 mg 24 hr tablet, extended release RxNorm: 606150 1 Tablet(s) PO QAM 05/26/2013 06/28/2013 Inactive Wellbutrin XL 150 mg 24 hr tablet, extended release RxNorm: 498789 1 Tablet(s) PO QD 05/15/2013 05/25/2013 Inactive Wellbutrin XL 150 mg 24 hr tablet, extended release RxNorm: 501900 1 Tablet(s) PO QD 05/15/2013 05/14/2013 Inactive Kombiglyze XR 5 mg-500 mg tablet,extended release RxNorm: 10 56710 1 Tablet(s) PO QD 05/07/2013 05/15/2013 Inactive cefdinir 300 mg capsule RxNorm: 078605 2 Capsule(s) PO QD 04/23/2013 05/02/2013 Inactive AttnRPh: Saving apply/adjudicate RxGRP:S G20 RxBIN:[id number] RxPCN:HT ID#:[id number] Pepcid 20 mg tablet RxNorm: 662967 Tablet(s) PO TAKE 1 TABLET BY MOUTH TWICE DAILY. 04/17/2013 06/13/2016 Inactive Pepcid 20 mg tablet RxNorm: 609749 1 Tablet(s) PO BID 04/06/201305/24 Inactive Vytorin 10-80 10 mg-80 mg tablet RxNorm: 734670 1 Tablet(s) PO QD 0 02/19/2013 06/08/2013 Inactive TAKE 1 TABLET BY MOUTH DAILY loratadine 10 mg tablet RxNorm: 211667 1 Tablet(s) PO BID 01/23/2013 07/21/2013 Inactive Synthroid 150 mcg tablet RxNorm: 041902 1 Tablet(s) PO QD brand onl y 12/02/2012 06/08/2013 Inactive propranolol 60 mg tablet RxNorm: 860568 1 Tablet(s) PO QD 12/02/2012 06/08/2013 Inactive Trilipix 135 mg capsule,delayed release RxNorm: 908405 1 Capsul e(s) PO QD 12/02/2012 05/30/2013 Inactive may do day fill i f desired Pepcid 20 mg tablet RxNorm: 697145 1 Tablet(s) PO BID 11/27/201203/24 Inactive Effexor XR 150 mg capsule,extended release RxNorm: 131567 1 Cap kimi(s) PO QD 11/24/2012 05/14/2013 Inactive Vytorin 10-80 10 mg-80 mg tablet RxNorm: 448260 1 Tablet(s) PO QD 0 11/24/2012 2013 Inactive TAKE 1 TABLET BY MOUTH DAILY Vytorin 10-80 10 mg-80 mg tablet RxNorm: 162084 1 Tablet(s) PO QD 0 11/21/2012 11/24/2012 Inactive TAKE 1 TABLET BY MOUTH DAILY Effexor XR 150 mg capsule,extended release RxNorm: 567102 1 Cap kimi(s) PO QD 11/21/2012 11/24/2012 Inactive loratadine 10 mg tablet RxNorm: 7572409 1 Tablet(s) PO BID 11/12/19 13 01/23/2013 Inactive Vytorin 10-80 10 mg-80 mg tablet RxNorm: 835817 Tablet( s) PO TAKE 1 TABLET BY MOUTH ONCE DAILY. 10/15/2012 11/21/2012 Inactive Vytorin 10-80 10 mg-80 mg tablet RxNorm: 747412 1 Tablet(s) PO QD 0 10/15/2012 11/20/2012 Inactive TAKE 1 TABLET BY MOUTH DAILY Effexor XR 150 mg capsule,extended release RxNorm: 041957 1 Cap kimi(s) PO QD 10/15/2012 11/20/2012 Inactive Effexor XR 150 mg capsule,extended release RxNorm: 417362 Capsule(s) PO TAKE 1 CAPSULE BY MOUTH ONCE DAILY 10/15/2012 11/21/2012 Inactive azithromycin 250 mg tablet RxNorm: 797157 2 Tablet(s) PO QD 013 09/10/2012 Inactive Culturelle 10 billion cell capsule RxNorm: 878644 1 Cap kimi(s) PO BID for diarrhea maintenance 09/03/2012 10/02/2012 Inactive Medrol (Isaiah) 4 mg tablets in a dose pack RxNorm: 411944 Tablet(s) PO as directed 09/03/2012 07/11/2011 Active as directed Culturelle 10 billion cell capsule RxNorm: 515719 1 Capsule(s) PO BID 07/23/2012 08/21/2012 Inactive Vitamin D2 50,000 unit capsule RxNorm: 735769 Capsule(s ) PO TAKE 1 CAPSULE EVERY DAY SATURDAY THRU Saturday07/09/2012 08/20/2013 Inactive Vitamin D2 50,000 unit capsule RxNorm: 0166612 Capsule(s ) PO TAKE 1 CAPSULE EVERY DAY SATURDAY THRU Saturday07/07/2012 07/08/2012 Inactive Vitamin D2 50,000 unit capsule RxNorm: 0266134 Capsule(s ) PO TAKE 1 CAPSULE EVERY DAY SATURDAY THRU Saturday07/07/2012 07/06/2012 Inactive Vitamin D2 50,000 unit capsule RxNorm: 6994345 Capsule(s ) PO TAKE 1 CAPSULE EVERY DAY SATURDAY THRU Saturday06/27/2012 07/06/2012 Inactive Synthroid 150 mcg tablet RxNorm: 783393 1 Tablet(s) PO QD brand onl y 06/09/2012 12/02/2012 Inactive metformin 1,000 mg tablet RxNorm: 318864 1 Tablet(s) PO BID rep laces 500mg dose 05/20/2012 11/10/2012 Inactive propranolol 60 mg tablet RxNorm: 944603 1 Tablet(s) PO QD 04/23/2012 12/02/2012 Inactive Effexor XR 150 mg capsule,extended release RxNorm: 298389 1 Cap kimi(s) PO QD 04/04/2012 09/30/2012 Inactive Zyrtec 10 mg tablet RxNorm: 1257730 1 Tablet(s) PO QD 04/04/201203/24 Inactive Trilipix 135 mg capsule,delayed release RxNorm: 239248 1 Capsul e(s) PO QD 03/19/2012 12/02/2012 Inactive may do 90 day fill i f desired Vytorin 10-80 10 mg-80 mg tablet RxNorm: 711194 1 Tablet(s) PO QD 0 01/31/2012 07/28/2012 Inactive TAKE 1 TABLET BY MOUTH DAILY Voltaren 1 % topical gel RxNorm: 804897 TOP BID 01/25/2012 4 Inactive Apply to affected areas 2-3 times daily as needed. Synthroid 150 mcg tablet RxNorm: 707477 1 Tablet(s) PO QD brand onl y 01/02/2012 06/09/2012 Inactive metformin ER 1,000 mg 24 hr Tab Ctrl Rel RxNorm: 297091 1 Table t(s) PO QD 01/02/2012 05/19/2012 Inactive metformin ER 500 mg 24 hr Tab RxNorm: 650662 Tablet(s) PO 12/21/2011 01/01/2012 Inactive TAKE 1 TABLET BY MOUTH ONCE DAILY. Voltaren 1 % Topical Gel RxNorm: 681312 TOP BID 11/28/2011 2 Inactive Apply to affected areas 2-3 times daily as needed. propranolol 60 mg tablet RxNorm: 342397 1 Tablet(s) PO QD 10/17/2011 04/23/2012 Inactive Effexor XR 150 mg capsule,extended release RxNorm: 692150 1 Cap kimi(s) PO QD 09/13/2011 04/04/2012 Inactive Medrol (Isaiah) 4 mg tablets in a dose pack RxNorm: 201884 Tablet(s) PO as directed 09/04/2011 07/11/2011 Active as directed doxycycline hyclate 100 mg Tab RxNorm: 3876004 1 Tablet(s) PO BID 0 09/04/2011 09/13/2011 Inactive doxycycline monohydrate 100 mg Tab RxNorm: 1408457 1 Tablet(s) P O BID 07/25/2011 08/03/2011 Inactive prednisone 10 mg Tab RxNorm: 902062 1 Tablet(s) PO TID 07/25/201112/2011 Inactive Synthroid 150 mcg Tab RxNorm: 588985 1 Tablet(s) PO QD brand only 0 07/12/2011 01/02/2012 Inactive Vytorin 10-80 10 mg-80 mg Tab RxNorm: 153488 1 Tablet(s) PO QD 05/2601/31/2012 Inactive TAKE 1 TABLET BY MOUTH DAILY Vitamin D2 50,000 unit capsule RxNorm: 2111811 1 Capsule(s) PO Q D M-F 05/15/2011 06/26/2012 Inactive TAKE 1 CAPSULE BY MO [facility] DAILY SATURDAY THROUGH FRIDAYS Synthroid 150 mcg Tab RxNorm: 644349 1 Tablet(s) PO QD brand only 1 07/09/2010 07/11/2011 Inactive doxycycline monohydrate 100 mg Tab RxNorm: 8684835 1 Tablet(s) P O BID 04/25/2011 05/04/2011 Inactive Trilipix 135 mg capsule,delayed release RxNorm: 940514 1 Capsul e(s) PO QD 04/23/2011 03/19/2012 Inactive cefdinir 300 mg Cap RxNorm: 810680 1 Capsule(s) PO BID 04/04/2011 Inactive propranolol 60 mg Tab RxNorm: 270350 1 Tablet(s) PO QD 03/26/2011 Inactive Ultram 50 mg Tab RxNorm: 218946 1-2 Tablet(s) PO QID 03/22/201103/21 Active prn pain metformin ER 500 mg 24 hr Tab RxNorm: 470981 1 Tablet(s) PO QD 06/201006/21/2011 Inactive Synthroid 150 mcg Tab RxNorm: 569833 1 Tablet(s) PO QD 02/22/201112/2010 Inactive Vytorin 10-80 10 mg-80 mg Tab RxNorm: 059928 1 Tablet(s) PO QD 01/2303/13/2011 Inactive TAKE 1 TABLET BY MOUTH DAILY Trilipix 135 mg Cap RxNorm: 916138 1 Capsule(s) PO QD 01/10/201103/26 Inactive Effexor XR 150 mg 24 hr Cap RxNorm: 353382 1 Capsule(s) PO QD 01/0908/06/2011 Inactive Vitamin D 50,000 unit Cap RxNorm: 3191771 Capsule(s) PO 12/20/2010 Inactive TAKE 1 CAPSULE BY MOUTH DAILY Fridays Septra DS 800 mg-160 mg Tab RxNorm: 840781 1 Tablet(s) PO BID 12/0712/16/2010 Inactive mupirocin 2 % Ointment RxNorm: 297406 1 Application TOP BID Apply to affected area twice daily 12/07/2010 12/13/2010 Inactive Trilipix 135 mg Cap RxNorm: 477104 1 Capsule(s) PO QD 10/16/201003/26 Inactive Synthroid 150 mcg Tab RxNorm: 253855 1 Tablet(s) PO QD 10/09/201006/2010 Inactive metformin ER 500 mg 24 hr Tab RxNorm: 902066 1 Tablet(s) PO QD 09/2202/22/2011 Inactive Nexium 40 mg Cap RxNorm: 416382 1 Capsule(s) PO QD 10/05/2010 019 Inactive Vytorin 10-80 10 mg-80 mg Tab RxNorm: 073163 1 Tablet(s) PO QD 09/201002/12/2011 Inactive propranolol 60 mg Tab RxNorm: 443922 1 Tablet(s) PO QD 09/18/201008/2010 Inactive Synthroid 125 mcg Tab RxNorm: 860889 1 Tablet(s) PO QD 08/07/2010 Inactive Synthroid 125 mcg Tab RxNorm: 431733 1 Tablet(s) PO QD 08/07/2010 Inactive Voltaren 1 % Topical Gel RxNorm: 213328 TOP BID Apply t o affected areas 2-3 times daily as needed. 08/01/2010 11/28/2011 Inactive Voltaren 1 % Topical Gel RxNorm: 945085 TOP BID Apply t o affected areas 2-3 times daily as needed. 07/04/2010 07/31/2010 Inactive Advair Diskus 250 mcg-50 mcg/dose for Inhalation RxNorm: 135 9859 1 Puff(s) INH Q12H 07/04/2010 07/11/2011 Inactive Effexor XR 150 mg 24 hr Cap RxNorm: 827876 1 Capsule(s) PO QD 06/0801/03/2011 Inactive Synthroid 100 mcg Tab RxNorm: 044819 1 Tablet(s) PO QD 06/06/2010 Inactive Vitamin D 50,000 unit Cap RxNorm: 4363732 1 Capsule(s) PO QD M-F 05/15/2011 Inactive Synthroid 150 mcg Tab RxNorm: 401537 1 Tablet(s) PO 05/25/20102010 Inactive Vytorin 10-80 10 mg-80 mg Tab RxNorm: 555698 1 Tablet(s) PO QD 04/2509/25/2010 Inactive Trilipix 135 mg Cap RxNorm: 253859 1 Capsule(s) PO QD 04/17/201009/23 Inactive propranolol 60 mg Tab RxNorm: 926649 1 Tablet(s) PO QD 01/09/2010 Inactive Advair Diskus 250 mcg-50 mcg/dose for Inhalation RxNorm: 135 9859 1 Puff(s) INH Q12H 12/26/2009 07/04/2010 Inactive Advair Diskus 250 mcg-50 mcg/Dose for Inhalation RxNorm: 135 9859 1 Puff(s) INH Q12H 11/26/2009 12/25/2009 Inactive Synthroid 200 mcg Tab RxNorm: 344188 1 Tablet(s) PO QD 11/24/2009 Inactive Effexor XR 150 mg 24 hr Cap RxNorm: 449477 1 Capsule(s) PO QD 10/2705/24/2010 Inactive Lisinopril 10 mg Tab RxNorm: 266324 1 Tablet(s) PO QD 10/17/200909/23 Inactive Propranolol 60 mg Tab RxNorm: 288765 1 Tablet(s) PO QD 10/17/2009 Inactive Septra DS 160 mg-800 mg Tab RxNorm: 323650 1 Tablet(s) PO BID 10/0410/08/2009 Inactive Mupirocin 2 % Ointment RxNorm: 649992 TOP Q6-8H 10/04/2009 10/10/2009 Inactive Voltaren 1 % Topical Gel RxNorm: 415419 TOP BID Apply t o affected areas 2-3 times daily as needed. 09/21/2009 03/19/2010 Inactive Trilipix 135 mg Cap RxNorm: 781063 1 Capsule(s) PO QD 09/20/200902/23 Inactive Nexium 40 mg Cap RxNorm: 628064 1 Capsule(s) PO QD 09/19/2009 010 Inactive Tylenol Arthritis 650 mg Tab RxNorm: 0095130 2 Tablet(s) PO BID 09/21 Active Vitamin D3 5,000 unit tablet RxNorm: 726309 1 Tablet(s) PO QD 019 Active Synthroid 150 mcg tablet RxNorm: 240690 1 Tablet(s) PO QD 01/12/2015 01/11/2015 Inactive Synthroid 150 mcg tablet RxNorm: 491155 1 Tablet(s) PO Saturday and Saturday01/16/2018 01/15/2018 Inactive Vitamin D 2,000 unit Cap RxNorm: 1 Capsule(s) PO QD 01/30/201002/2010 Inactive Flexeril 5 mg tablet RxNorm: 619903 1/2 to 1 Tablet(s) PO TID as needed for muscle spasm 06/10/2017 06/09/2017 Inactive Medrol (Isaiah) 4 mg Tabs in a Dose Pack RxNorm: 294855 Tablet(s) PO 0 09/04/2011 07/11/2011 Inactive as directed fenofibrate micronized 134 mg capsule RxNorm: 810021 1 Capsule( s) PO QD 06/03/2017 06/02/2017 Inactive Vitamin D2 50,000 unit capsule RxNorm: 158716 Capsule(s ) PO Take 1 capsule by mouth twice weekly 12/02/2013 12/01/2013 Inactive prednisone 20 mg tablet RxNorm: 309521 1 Tablet(s) PO BID 03/30/2014 03/29/2014 Inactive AttnRPh: Saving apply/adjudicate RxGRP:S G20 RxBIN:[id number] RxPCN:HT ID#:[id number]: Saving apply/adjudicate RxGRP:SG20 RxBIN:[id number] RxPCN:HT ID#:[id number] Soma 350 mg tablet RxNorm: 243470 1 Tablet(s) PO TID prn spasm 01/2310/08/2010 Inactive Lancets,Ultra Thin RxNorm: Miscellaneous Use to test blood sugar daily and as needed (Dx: E11.65) 02/28/2018 02/27/2018 Inactive pantoprazole 40 mg tablet,delayed release RxNorm: 499041 1 Tabl et(s) PO QD 08/21/2017 08/20/2017 Inactive Janumet XR 100 mg-1,000 mg tablet,extended release RxNorm: 1 878563 2 Tablet(s) PO QD 01/06/2014 01/05/2014 Inactive Contour Meter RxNorm: miscellaneous 02/27/2018 02/26/2018 Inactive Synthroid 200 mcg Tab RxNorm: 508231 1 Tablet(s) PO QD 11/24/200907/2009 Inactive Kombiglyze XR 5 mg-500 mg tablet,extended release RxNorm: 10 51582 1 Tablet(s) PO QD 05/07/2013 05/06/2013 Inactive Zithromax Z-Isaiah 250 mg tablet RxNorm: 663208 Tablet(s) PO as di rected 05/14/2013 05/13/2013 Inactive AttnRPh: Saving appl y/adjudicate RxGRP:SG20 RxBIN:[id number] RxPCN:HT ID#:[id number] Fish Oil 1,000 mg capsule RxNorm: 3 Capsule(s) PO QD 04/04/2017 Inactive Lasix Oral RxNorm: Oral 03/30/2014 03/29/2014 Inactive loratadine 10 mg tablet RxNorm: 693248 1 Tablet(s) PO QD 08/20/2017 0 08/19/2017 Inactive Vitamin D 5,000 unit Tab RxNorm: 1 Tablet(s) PO twice a week 1 08/07/2009 06/05/2010 Inactive permethrin 5 % Topical Cream RxNorm: 728607 TOP Use as directed 02/03/2013 Inactive Gabapentin 100 mg Tab RxNorm: 511747 1 Tablet(s) PO BID 04/12/2010 Inactive Voltaren 1 % topical gel RxNorm: 186667 TOP as needed 06/23/201805/26 Inactive Gabapentin 300 mg Cap RxNorm: 899524 1 Capsule(s) PO BID 07/12/2011 0 07/11/2011 Inactive Contour Test Strips RxNorm: Miscellaneous Test blood sug ar daily (Dx: E11.65) 02/28/2018 02/27/2018 Inactive Promethazine 25 mg Tab RxNorm: 002636 1 Tablet(s) PO Q6 -8H As needed for nausea and vomiting. 10/09/2010 10/08/2010 Inactive propranolol 20 mg tablet RxNorm: 761635 1 Tablet(s) PO BID 03/17/20 18 03/16/2018 Inactive Vitamin D 50,000 unit Cap RxNorm: 5304331 Capsule(s) PO 2 weekly 06/05/2010 Inactive Synthroid 175 mcg Tab RxNorm: 118166 1 Tablet(s) PO QD 07/12/2011 Inactive triamcinolone acetonide 0.1 % Ointment RxNorm: 9617000 T OP TID apply three times a day (sparingly) as needed for itching 04/04/2017 04/03/2017 Inactive Ultram 50 mg Tab RxNorm: 233344 1-2 Tablet(s) PO QID prn pain 03/2203/22/2011 Inactive Topamax 100 mg Tab RxNorm: 525738 1 Tablet(s) PO BID 10/04/200910/03 Inactive Vitamin D3 1000 units Capsule RxNorm: 3 Capsule(s) PO QD 0 06/05/2010 Inactive Singulair 10 mg tablet RxNorm: 460781 1 Tablet(s) PO QD 06/23/2018 Inactive Medication [...] Code Result Date S ervice Location SARS-CoV2 9071761 SARS-CoV2 PCR Detected 07/08/2021 [facility] w[facility] GFR CALC 3721649 GFR Non Afr Amr >60 mL/min 01/26/2019 Un known GFR CALC 0580185 GFR Afr Amr >60 mL/min 01/26/2019 Unknow n COMPLETE BLOOD COUNT [id number] WBC 7.0 10e9/L 01/27/20 19 Unknown COMPLETE BLOOD COUNT [id number] RBC 4.52 10e12/L 2018 Unknown COMPLETE BLOOD COUNT 5754019 HEMOGLOBIN 14.0 g/dL 01/27/20 19 Unknown COMPLETE BLOOD COUNT 8410186 HEMATOCRIT 42.6 % 01/27/20 19 Unknown COMPLETE BLOOD COUNT 2945541 MCV 94.2 fL 9 Unknown COMPLETE BLOOD COUNT 0689274 MCH 31.0 pg 9 Unknown COMPLETE BLOOD COUNT 8720415 MCHC 32.9 g/dL 9 Unknown COMPLETE BLOOD COUNT [id number] PLATELET COUNT 272 10e9/L 10/2018 Unknown COMPLETE BLOOD COUNT 0571024 Mean Plt Volume 10.4 fL 10/2018 Unknown COMPLETE BLOOD COUNT 7351006 Neut Auto 53.9 % 9 Unknown COMPLETE BLOOD COUNT 9514757 Lymph Auto 33.8 % 01/27/20 19 Unknown COMPLETE BLOOD COUNT 4788662 Sutton Auto 9.1 % 9 Unknown COMPLETE BLOOD COUNT 4010565 RDW 13.2 % 9 Unknown COMPLETE BLOOD COUNT 0757973 Eos Auto 2.3 % 9 Unknown COMPLETE BLOOD COUNT 7034581 Baso Auto 0.9 % 9 Unknown COMPLETE BLOOD COUNT 1309288 Neutrophil Abs 3.77 10e9/L Unknown COMPLETE BLOOD COUNT 0772016 Lymphocyte Abs 2.37 10e9/L Unknown COMPLETE BLOOD COUNT [id number] Monocyte Abs 0.64 10e9/L 10/2018 Unknown COMPLETE BLOOD COUNT 7754347 Eosinophil Abs 0.16 10e9/L Unknown COMPLETE BLOOD COUNT 8833565 RDW-SD 44.2 fL 9 Unknown COMPLETE BLOOD COUNT 1575686 Basophil Abs 0.06 10e9/L 10/2018 Unknown COMPREHENSIVE METABOLIC 69405 AST 15 U/L 2018 Unknown COMPREHENSIVE METABOLIC 18137 ALT 18 U/L 2018 Unknown COMPREHENSIVE METABOLIC 41508 BUN 10 mg/dL 2018 Unknown COMPREHENSIVE METABOLIC 85628 ALBUMIN 4.1 g/dL 2018 Unknown COMPREHENSIVE METABOLIC 15347 CHLORIDE 100 mmol/L 01/26 Unknown COMPREHENSIVE METABOLIC 18368 Bili Total 0.4 mg/dL 01/26 Unknown COMPREHENSIVE METABOLIC 85756 ALK PHOS 57 U/L 2018 Unknown COMPREHENSIVE METABOLIC 27304 SODIUM 136 mmol/L 01/26 Unknown COMPREHENSIVE METABOLIC 52566 CREATININE 0.71 mg/dL 10/2018 Unknown COMPREHENSIVE METABOLIC 13015 CALCIUM 9.3 mg/dL 2018 Unknown COMPREHENSIVE METABOLIC 31617 POTASSIUM 4.4 mmol/L 01/26 Unknown COMPREHENSIVE METABOLIC 68932 Total Protein 6.7 g/dL Unknown COMPREHENSIVE METABOLIC 78523 Glucose 88 mg/dL 2018 Unknown COMPREHENSIVE METABOLIC 81247 Bicarbonate 27 mmol/L 10/2018 Unknown COMPREHENSIVE METABOLIC 16882 AGAP 9 mmol/L 2018 Unknown Procedures Procedure Codes Date RML URINE CULTURE/ COLONY COUNT CPT-4: 59292 06/29/19 23 THER/PROPH/DIAG INJ SC/IM CPT-4: 11769 04/18/2022 KETOROLAC TROMETHAMINE INJ CPT-4: J1885 04/18/2022 FLU 64 + VACC AIIV4 NO PRSRV 0.5ML IM CPT-4: 26067 ADMIN INFLUENZA VIRUS VAC CPT-4: G0008 04/05/2022 PPPS, subseq visit CPT-4: G0439 02/06/2022 DEXAMETHASONE SODIUM PHOS CPT-4: J1100 11/09/2021 THER/PROPH/DIAG INJ SC/IM CPT-4: 23478 11/09/2021 TRIAMCINOLONE ACET INJ NOS CPT-4: J3301 11/09/2021 CEFTRIAXONE SODIUM INJECTION CPT-4: J0696 10/30/2021 THER/PROPH/DIAG INJ SC/IM CPT-4: 09749 10/30/2021 INFLUENZA ASSAY W/OPTIC CPT-4: 41497 10/30/2021 THER/PROPH/DIAG INJ SC/IM CPT-4: 38092 09/05/2021 TRIAMCINOLONE ACET INJ NOS CPT-4: J3301 09/05/2021 INFLUENZA ASSAY W/OPTIC CPT-4: 15242 07/04/2021 SARS-CoV2 CPT-4: 2006153 07/04/2021 FLU VACC PRSV FREE INC ANTIG 65 AND OLDER CPT-4: 34393 03/29/2021 FLU VACC PRSV FREE INC ANTIG 65 AND OLDER CPT-4: 73986 03/29/2021 ADMIN INFLUENZA VIRUS VAC CPT-4: G0008 03/29/2021 DRAINAGE OF SKIN ABSCESS CPT-4: 84566 02/08/2021 PPPS, subseq visit CPT-4: G0439 01/03/2021 OCCULT BLOOD FECES CPT-4: 11503 07/13/2020 RML URINE CULTURE/ COLONY COUNT CPT-4: 72485 05/17/20 20 URINALYSIS NONAUTO W/O SCOPE CPT-4: 34601 05/17/2020 CEFTRIAXONE SODIUM INJECTION CPT-4: J0696 03/07/2020 THER/PROPH/DIAG INJ SC/IM CPT-4: 34564 03/07/2020 THER/PROPH/DIAG INJ SC/IM CPT-4: 06821 03/07/2020 METHYLPREDNISOLONE INJECTION CPT-4: J2930 03/07/2020 PPPS, subseq visit CPT-4: G0439 12/21/2019 RML URINE CULTURE/ COLONY COUNT CPT-4: 59065 09/11/19 20 CEFTRIAXONE SODIUM INJECTION CPT-4: J0696 09/08/2019 THER/PROPH/DIAG INJ SC/IM CPT-4: 01892 09/08/2019 THER/PROPH/DIAG INJ SC/IM CPT-4: 18964 09/07/2019 CEFTRIAXONE SODIUM INJECTION CPT-4: J0696 09/07/2019 THER/PROPH/DIAG INJ SC/IM CPT-4: 26600 09/07/2019 URINALYSIS NONAUTO W/O SCOPE CPT-4: 08221 09/02/2019 RML URINE CULTURE/ COLONY COUNT CPT-4: 49022 09/02/19 20 FLU VACC PRSV FREE INC ANTIG 65 AND OLDER CPT-4: 22871 04/15/2019 URINALYSIS NONAUTO W/O SCOPE CPT-4: 67966 04/15/2019 RML URINE CULTURE/ COLONY COUNT CPT-4: 47532 04/15/20 19 ADMIN INFLUENZA VIRUS VAC CPT-4: G0008 04/15/2019 FLU VACC PRSV FREE INC ANTIG 65 AND OLDER CPT-4: 38595 04/15/2019 THER/PROPH/DIAG INJ SC/IM CPT-4: 50691 04/07/2019 TRIAMCINOLONE ACET INJ NOS CPT-4: J3301 04/07/2019 DEXAMETHASONE SODIUM PHOS CPT-4: J1100 04/07/2019 URINALYSIS NONAUTO W/O SCOPE CPT-4: 37987 03/18/2019 RML URINE CULTURE/ COLONY COUNT CPT-4: 97687 03/18/20 19 ROUTINE VENIPUNCTURE CPT-4: 88525 01/26/2019 RML COMPREHEN METABOLIC PANEL CPT-4: 40246 01/26/2019 RML COMPLETE CBC W/AUTO DIFF WBC CPT-4: 73331 019 RML URINE CULTURE/ COLONY COUNT CPT-4: 47004 01/27/20 19 URINALYSIS NONAUTO W/O SCOPE CPT-4: 20476 01/26/2019 THER/PROPH/DIAG INJ SC/IM CPT-4: 35369 01/08/2019 TRIAMCINOLONE ACET INJ NOS CPT-4: J3301 01/08/2019 THER/PROPH/DIAG INJ SC/IM CPT-4: 94248 01/06/2019 METHYLPREDNISOLONE INJECTION CPT-4: J2930 01/06/2019 AIRWAY INHALATION TREATMENT CPT-4: 61227 01/06/2019 RML URINE CULTURE/ COLONY COUNT CPT-4: 58663 01/07/20 19 PPPS, subseq visit CPT-4: G0439 12/11/2018 URINALYSIS NONAUTO W/O SCOPE CPT-4: 07950 12/11/2018 RML URINE CULTURE/ COLONY COUNT CPT-4: 73352 12/12/19 19 CULTURE OTHR SPECIMN AEROBIC CPT-4: 29323 12/11/2018 OCCULT BLOOD FECES CPT-4: 65888 12/11/2018 THER/PROPH/DIAG INJ SC/IM CPT-4: 72566 10/07/2018 TRIAMCINOLONE ACET INJ NOS CPT-4: J3301 10/07/2018 DEXAMETHASONE SODIUM PHOS CPT-4: J1100 10/07/2018 THER/PROPH/DIAG INJ SC/IM CPT-4: 73787 10/16/2017 TRIAMCINOLONE ACET INJ NOS CPT-4: J3301 10/16/2017 THER/PROPH/DIAG INJ SC/IM CPT-4: 58551 10/16/2017 KETOROLAC TROMETHAMINE INJ CPT-4: J1885 10/16/2017 INFLUENZA ASSAY W/OPTIC CPT-4: 57525 07/25/2017 FLU VACC PRSV FREE INC ANTIG 65 AND OLDER CPT-4: 63107 04/04/2017 PNEUMOCOCCAL VACC 23 DANAY IM CPT-4: 68418 04/04/2017 PPPS, subseq visit CPT-4: G0439 04/04/2017 ADMIN INFLUENZA VIRUS VAC CPT-4: G0008 04/04/2017 ADMIN PNEUMOCOCCAL VACCINE CPT-4: G0009 04/04/2017 URINALYSIS NONAUTO W/O SCOPE CPT-4: 80690 06/05/2016 FLU VACC PRSV FREE INC ANTIG 65 AND OLDER CPT-4: 40885 05/01/2016 ADMIN INFLUENZA VIRUS VAC CPT-4: G0008 05/01/2016 URINALYSIS NONAUTO W/O SCOPE CPT-4: 18614 11/08/2015 URINALYSIS NONAUTO W/O SCOPE CPT-4: 56587 03/28/2015 ADMIN INFLUENZA VIRUS VAC CPT-4: G0008 03/28/2015 FLU VACC PRSV FREE INC ANTIG 65 AND OLDER CPT-4: 62569 03/28/2015 PRESCRIP TRANSMIT VIA ERX SY CPT-4: G8553 03/28/2015 PNEUMOCOCCAL VACC 13 DANAY IM CPT-4: 43024 02/08/2015 ADMIN PNEUMOCOCCAL VACCINE CPT-4: G0009 02/08/2015 PRESCRIP TRANSMIT VIA ERX SY CPT-4: G8553 02/08/2015 RML URINE CULTURE/ COLONY COUNT CPT-4: 78657 01/12/20 15 URINALYSIS NONAUTO W/O SCOPE CPT-4: 40808 01/11/2015 PRESCRIP TRANSMIT VIA ERX SY CPT-4: G8553 01/11/2015 PRESCRIP TRANSMIT VIA ERX SY CPT-4: G8553 11/24/2014 URINALYSIS NONAUTO W/O SCOPE CPT-4: 48793 10/27/2014 RML URINE CULTURE/ COLONY COUNT CPT-4: 33966 10/28/19 15 PRESCRIP TRANSMIT VIA ERX SY CPT-4: G8553 10/27/2014 CEFTRIAXONE SODIUM INJECTION CPT-4: J0696 09/23/2014 THER/PROPH/DIAG INJ SC/IM CPT-4: 38084 09/23/2014 URINALYSIS NONAUTO W/O SCOPE CPT-4: 30308 09/23/2014 RML URINE CULTURE/ COLONY COUNT CPT-4: 88407 09/24/19 15 PRESCRIP TRANSMIT VIA ERX SY CPT-4: G8553 09/23/2014 URINALYSIS NONAUTO W/O SCOPE CPT-4: 90541 03/30/2014 RML URINE CULTURE/ COLONY COUNT CPT-4: 56323 03/30/20 14 PRESCRIP TRANSMIT VIA ERX SY CPT-4: G8553 03/30/2014 PRESCRIP TRANSMIT VIA ERX SY CPT-4: G8553 11/24/2013 PRESCRIP TRANSMIT VIA ERX SY CPT-4: G8553 06/29/2013 PRESCRIP TRANSMIT VIA ERX SY CPT-4: G8553 05/26/2013 PRESCRIP TRANSMIT VIA ERX SY CPT-4: G8553 04/23/2013 THER/PROPH/DIAG INJ SC/IM CPT-4: 00198 03/05/2013 KETOROLAC TROMETHAMINE INJ CPT-4: J1885 03/05/2013 PRESCRIP TRANSMIT VIA ERX SY CPT-4: G8553 11/27/2012 PRESCRIP TRANSMIT VIA ERX SY CPT-4: G8553 11/11/2012 PRESCRIP TRANSMIT VIA ERX SY CPT-4: G8553 09/03/2012 PRESCRIP TRANSMIT VIA ERX SY CPT-4: G8553 07/23/2012 PRESCRIP TRANSMIT VIA ERX SY CPT-4: G8553 05/20/2012 PRESCRIP TRANSMIT VIA ERX SY CPT-4: G8553 04/04/2012 DESTRUCT PREMALG LESION (Cryosurgery) CPT-4: 90573 PRESCRIP TRANSMIT VIA ERX SY CPT-4: G8553 01/02/2012 PRESCRIP TRANSMIT VIA ERX SY CPT-4: G8553 09/04/2011 URINALYSIS NONAUTO W/O SCOPE CPT-4: 75979 07/31/2011 PRESCRIP TRANSMIT VIA ERX SY CPT-4: G8553 07/12/2011 PRESCRIP TRANSMIT VIA ERX SY CPT-4: G8553 05/09/2011 THER/PROPH/DIAG INJ SC/IM CPT-4: 07639 05/02/2011 KETOROLAC TROMETHAMINE INJ CPT-4: J1885 05/02/2011 PRESCRIP TRANSMIT VIA ERX SY CPT-4: G8553 04/25/2011 CUR TOBACCO NON-USER CPT-4: G8457 04/04/2011 PRESCRIP TRANSMIT VIA ERX SY CPT-4: G8553 04/04/2011 DRAIN/INJECT JOINT/BURSA CPT-4: 79525 03/01/2011 METHYLPREDNISOLONE 40 MG INJ CPT-4: J1030 03/01/2011 TRIAMCINOLONE ACET INJ NOS CPT-4: J3301 03/01/2011 DRAIN/INJECT JOINT/BURSA CPT-4: 16275 01/04/2011 METHYLPREDNISOLONE 40 MG INJ CPT-4: J1030 01/04/2011 TRIAMCINOLONE ACET INJ NOS CPT-4: J3301 01/04/2011 PRESCRIP TRANSMIT VIA ERX SY CPT-4: G8553 12/07/2010 PRESCRIP TRANSMIT VIA ERX SY CPT-4: G8553 10/09/2010 PRESCRIP TRANSMIT VIA ERX SY CPT-4: G8553 06/06/2010 DRAIN/INJECT JOINT/BURSA CPT-4: 18078 04/12/2010 TRIAMCINOLONE ACET INJ NOS CPT-4: J3301 04/12/2010 METHYLPREDNISOLONE 80 MG INJ CPT-4: J1040 04/12/2010 PRESCRIP TRANSMIT VIA ERX SY CPT-4: G8553 03/20/2010 THER/PROPH/DIAG INJ SC/IM CPT-4: 34992 01/30/2010 KETOROLAC TROMETHAMINE INJ CPT-4: J1885 01/30/2010 PRESCRIP TRANSMIT VIA ERX SY CPT-4: G8553 01/30/2010 DRAIN/INJECT JOINT/BURSA CPT-4: 30944 10/26/2009 TRIAMCINOLONE ACET INJ NOS CPT-4: J3301 10/26/2009 METHYLPREDNISOLONE 80 MG INJ CPT-4: J1040 10/26/2009 DRAINAGE OF SKIN ABSCESS CPT-4: 95787 10/04/2009 Vital Signs Date Vital 09/05/2022 Blood Pressure 1: 124/78 Code: 8480-6 Heart Rate 1: 65 bpm Respiratory Rate: 20 bpm SpO2: 97% Temperature: 36.7 (C) / 98.0 (F) We ight: 224 lbs Code: 73527-8 08/30/2022 Blood Pressure 1: 124/74 Code: 8480-6 Heart Rate 1: 74 bpm Respiratory Rate: 20 bpm SpO2: 96% Temperature: 36.3 (C) / 97.3 (F) We ight: 224 lbs Code: 34319-7 08/07/2022 Blood Pressure 1: 126/74 Code: 8480-6 Heart Rate 1: 73 bpm Respiratory Rate: 20 bpm SpO2: 97% Temperature: 36.2 (C) / 97.1 (F) We ight: 222 lbs Code: 30856-7 06/29/2022 Blood Pressure 1: 132/73 Code: 8480-6 BMI: 36.7 Code: 84673-0 Heart Rate 1: 74 bpm Height: 5'6" Code: 8302-2 SpO2: 96% Temperature: 3 6.4 (C) / 97.6 (F) Weight: 226 lbs Code: 11790-3 05/28/2022 Blood Pressure 1: 129/78 Code: 8480-6 BMI: 37.7 Code: 80987-8 Heart Rate 1: 72 bpm Height: 5'6" Code: 8302-2 SpO2: 95% Temperature: 3 6.2 (C) / 97.1 (F) Weight: 232 lbs Code: 86309-5 05/10/2022 Blood Pressure 1: 133/75 Code: 8480-6 BMI: 38.3 Code: 72931-0 Heart Rate 1: 68 bpm Height: 5'6" Code: 8302-2 SpO2: 98% Temperature: 3 6.2 (C) / 97.1 (F) Weight: 236 lbs Code: 27470-8 04/18/2022 Blood Pressure 1: 118/70 Code: 8480-6 Heart Rate 1: 86 bpm Respiratory Rate: 20 bpm SpO2: 96% Temperature: 36.6 (C) / 97.8 (F) We ight: 238 lbs Code: 09982-9 02/15/2022 Blood Pressure 1: 120/82 Code: 8480-6 Heart Rate 1: 88 bpm Respiratory Rate: 20 bpm SpO2: 98% Temperature: 36.1 (C) / 97.0 (F) We ight: 237 lbs Code: 68070-7 02/06/2022 Blood Pressure 1: 124/80 Code: 8480-6 BMI: 39.4 Code: 24079-6 Heart Rate 1: 76 bpm Height: 5'6" Code: 8302-2 Respiratory Rate: 20 bpm SpO2: 98% Temperature: 36.6 (C) / 97.9 (F) Weight: 242 lbs Code: 80114-9 02/01/2022 Blood Pressure 1: 144/100 Code: 8480-6 Heart Rat e 1: 108 bpm Respiratory Rate: 22 bpm SpO2: 96% Temperature: 36.4 (C) / 97.5 (F) 11/29/2021 Blood Pressure 1: 128/80 Code: 8480-6 Heart Rate 1: 56 bpm Respiratory Rate: 20 bpm SpO2: 97% Temperature: 36.7 (C) / 98.1 (F) We ight: 242 lbs Code: 28315-7 11/22/2021 Blood Pressure 1: 118/80 Code: 8480-6 Heart Rate 1: 84 bpm Respiratory Rate: 20 bpm SpO2: 99% Temperature: 36.3 (C) / 97.4 (F) 11/21/2021 Blood Pressure 1: 132/80 Code: 8480-6 Heart Rate 1: 98 bpm Respiratory Rate: 20 bpm SpO2: 99% Weight: 238 lbs Code: 15353 -7 11/09/2021 Blood Pressure 1: 136/86 Code: 8480-6 Heart Rate 1: 68 bpm Respiratory Rate: 20 bpm SpO2: 95% Temperature: 36.4 (C) / 97.5 (F) We ight: 244 lbs Code: 87439-9 10/31/2021 Blood Pressure 1: 128/80 Code: 8480-6 Heart Rate 1: 80 bpm Respiratory Rate: 28 bpm SpO2: 93% Temperature: 38.0 (C) / 100. 4 (F) 10/30/2021 Blood Pressure 1: 136/82 Code: 8480-6 Heart Rate 1: 120 bpm Respiratory Rate: 24 bpm SpO2: 95% Temperature: 38.0 (C) / 100. 4 (F) 09/05/2021 Blood Pressure 1: 118/84 Code: 8480-6 BMI: 38.5 Code: 33028-7 Heart Rate 1: 72 bpm Height: 5'7" Code: 8302-2 Respiratory Rate: 20 bpm SpO2: 95% Temperature: 36.3 (C) / 97.4 (F) Weight: 246 lbs Code: 28923-2 08/24/2021 Blood Pressure 1: 132/84 Code: 8480-6 Heart Rate 1: 76 bpm Respiratory Rate: 19 bpm SpO2: 98% Temperature: 36.7 (C) / 98.1 (F) We ight: Code: 20860-9 03/01/2021 Blood Pressure 1: 90/52 Code: 8480-6 Heart Rate 1: 66 bpm Respiratory Rate: 22 bpm SpO2: 97% 02/08/2021 Blood Pressure 1: 132/75 Code: 8480-6 Heart Rate 1: 74 bpm Respiratory Rate: 18 bpm SpO2: 98% Temperature: 36.3 (C) / 97.3 (F) We ight: 247 lbs Code: 22675-9 01/19/2021 Blood Pressure 1: 126/76 Code: 8480-6 Heart Rate 1: 76 bpm Respiratory Rate: 20 bpm SpO2: 98% Temperature: 37.1 (C) / 98.8 (F) We ight: 244 lbs Code: 86666-3 01/03/2021 Blood Pressure 1: 124/64 Code: 8480-6 BMI: 38.5 Code: 42981-6 Heart Rate 1: 76 bpm Height: 5'7" Code: 8302-2 Respiratory Rate: 20 bpm SpO2: 96% Temperature: 36.4 (C) / 97.6 (F) Weight: 246 lbs Code: 95926-9 11/29/2020 Blood Pressure 1: 119/68 Code: 8480-6 Heart Rate 1: 73 bpm Respiratory Rate: 20 bpm SpO2: 95% Temperature: 36.1 (C) / 96.9 (F) We ight: 245 lbs Code: 57489-6 09/29/2020 Blood Pressure 1: 136/79 Code: 8480-6 Heart Rate 1: 67 bpm Respiratory Rate: 15 bpm SpO2: 98% Temperature: 36.2 (C) / 97.1 (F) We ight: 237 lbs Code: 14008-1 09/19/2020 Blood Pressure 1: 135/82 Code: 8480-6 Heart Rate 1: 76 bpm Respiratory Rate: 17 bpm SpO2: 96% Temperature: 36.6 (C) / 97.8 (F) We ight: 238 lbs Code: 70951-8 08/10/2020 Blood Pressure 1: 126/82 Code: 8480-6 Heart Rate 1: 60 bpm Respiratory Rate: 20 bpm SpO2: 96% Temperature: 36.3 (C) / 97.3 (F) We ight: 238 lbs Code: 00607-4 08/01/2020 Temperature: 36.6 (C) / 97.8 (F) 07/13/2020 Blood Pressure 1: 132/80 Code: 8480-6 Heart Rate 1: 76 bpm Respiratory Rate: 20 bpm SpO2: 97% Temperature: 36.2 (C) / 97.2 (F) We ight: 228 lbs Code: 78487-8 07/05/2020 Temperature: 35.9 (C) / 96.7 (F) 06/22/2020 Blood Pressure 1: 134/82 Code: 8480-6 Heart Rate 1: 60 bpm Respiratory Rate: 20 bpm SpO2: 96% Temperature: 36.4 (C) / 97.6 (F) We ight: 235 lbs Code: 12062-3 05/17/2020 Blood Pressure 1: 141/72 Code: 8480-6 Heart Rate 1: 78 bpm Respiratory Rate: 16 bpm SpO2: 98% Temperature: 36.3 (C) / 97.3 (F) We ight: 232 lbs Code: 61834-4 03/14/2020 Blood Pressure 1: 126/92 Code: 8480-6 Heart Rate 1: 72 bpm Respiratory Rate: 22 bpm SpO2: 96% Temperature: 36.3 (C) / 97.4 (F) We ight: 225 lbs Code: 02046-6 03/07/2020 Blood Pressure 1: 124/86 Code: 8480-6 Heart Rate 1: 72 bpm Respiratory Rate: 24 bpm SpO2: 93% Temperature: 36.2 (C) / 97.1 (F) We ight: 227 lbs Code: 09285-5 12/21/2019 Blood Pressure 1: 114/72 Code: 8480-6 BMI: 36.2 Code: 82856-6 Heart Rate 1: 60 bpm Height: 5'7" Code: 8302-2 Respiratory Rate: 20 bpm SpO2: 97% Temperature: 36.7 (C) / 98.1 (F) Weight: 231 lbs Code: 23764-4 09/02/2019 Blood Pressure 1: 138/85 Code: 8480-6 Heart Rate 1: 76 bpm Respiratory Rate: 20 bpm SpO2: 96% Temperature: 36.3 (C) / 97.3 (F) We ight: 226 lbs Code: 57139-5 07/09/2019 Blood Pressure 1: 123/63 Code: 8480-6 BMI: 34.9 Code: 59716-4 Heart Rate 1: 64 bpm Height: 5'7" Code: 8302-2 Respiratory Rate: 17 bpm SpO2: 97% Temperature: 37.0 (C) / 98.6 (F) Weight: 223 lbs Code: 91790-3 04/15/2019 Blood Pressure 1: 110/82 Code: 8480-6 Heart Rate 1: 66 bpm SpO2: 98% Temperature: 36.1 (C) / 96.9 (F) Weight: 223 lbs Code: 58848-8 04/07/2019 Blood Pressure 1: 132/80 Code: 8480-6 Heart Rate 1: 68 bpm Temperature: 36.9 (C) / 98.4 (F) Weight: 222 lbs Code: 45315-9 03/25/2019 Blood Pressure 1: 108/70 Code: 8480-6 Heart Rate 1: 64 bpm Respiratory Rate: 20 bpm SpO2: 96% Temperature: 36.2 (C) / 97.2 (F) We ight: 221 lbs Code: 29484-6 03/18/2019 Blood Pressure 1: 138/82 Code: 8480-6 Heart Rate 1: 74 bpm SpO2: 99% Temperature: 36.1 (C) / 96.9 (F) Weight: 223 lbs Code: 81076-4 01/26/2019 Blood Pressure 1: 138/90 Code: 8480-6 Heart Rate 1: 68 bpm SpO2: 96% Temperature: 35.9 (C) / 96.7 (F) Weight: 227 lbs Code: 03660-9 01/08/2019 Blood Pressure 1: 134/78 Code: 8480-6 BMI: 36.8 Code: 89789-9 Heart Rate 1: 76 bpm Height: 5'7" Code: 8302-2 SpO2: 93% Temperature: 3 6.4 (C) / 97.6 (F) Weight: 235 lbs Code: 59216-0 01/06/2019 Blood Pressure 1: 116/80 Code: 8480-6 Heart Rate 1: 72 bpm Respiratory Rate: 20 bpm SpO2: 98% Temperature: 36.5 (C) / 97.7 (F) We ight: 232 lbs Code: 18600-0 12/11/2018 Blood Pressure 1: 120/82 Code: 8480-6 BMI: 36.2 Code: 55344-4 Heart Rate 1: 67 bpm Height: 5'7" Code: 8302-2 Respiratory Rate: 18 bpm SpO2: 96% Temperature: 35.9 (C) / 96.7 (F) Weight: 231 lbs Code: 67891-0 10/30/2018 Blood Pressure 1: 126/82 Code: 8480-6 Heart Rate 1: 80 bpm Respiratory Rate: 20 bpm SpO2: 96% Temperature: 36.8 (C) / 98.3 (F) We ight: 228 lbs Code: 95499-1 10/07/2018 Blood Pressure 1: 130/90 Code: 8480-6 Heart Rate 1: 76 bpm Respiratory Rate: 24 bpm SpO2: 97% Temperature: 36.0 (C) / 96.8 (F) We ight: 229 lbs Code: 40981-5 06/23/2018 Blood Pressure 1: 132/80 Code: 8480-6 Heart Rate 1: 72 bpm Respiratory Rate: 20 bpm SpO2: 98% Temperature: 36.7 (C) / 98.0 (F) We ight: 233 lbs Code: 54972-4 01/16/2018 Blood Pressure 1: 116/82 Code: 8480-6 Heart Rate 1: 72 bpm Respiratory Rate: 20 bpm SpO2: 96% Temperature: 36.9 (C) / 98.5 (F) We ight: 230 lbs Code: 52680-8 10/16/2017 Blood Pressure 1: 116/74 Code: 8480-6 BMI: 35.1 Code: 83222-1 Heart Rate 1: 76 bpm Height: 5'7" Code: 8302-2 Respiratory Rate: 20 bpm SpO2: 98% Temperature: 36.7 (C) / 98.1 (F) Weight: 224 lbs Code: 56049-4 09/12/2017 Blood Pressure 1: 124/78 Code: 8480-6 BMI: 34.6 Code: 54962-8 Heart Rate 1: 84 bpm Height: 5'7" Code: 8302-2 Respiratory Rate: 20 bpm SpO2: 95% Temperature: 36.6 (C) / 97.8 (F) Weight: 221 lbs Code: 52649-8 08/20/2017 Blood Pressure 1: 126/78 Code: 8480-6 Heart Rate 1: 92 bpm Height: 5'7" Code: 8302-2 Respiratory Rate: 20 bpm SpO2: 96% Temperature: 36 .9 (C) / 98.5 (F) 08/13/2017 Blood Pressure 1: 124/80 Code: 8480-6 BMI: 34.8 Code: 64137-1 Heart Rate 1: 80 bpm Height: 5'7" Code: 8302-2 Respiratory Rate: 20 bpm SpO2: 96% Temperature: 36.7 (C) / 98.0 (F) Weight: 222 lbs Code: 00921-4 07/29/2017 Blood Pressure 1: 114/70 Code: 8480-6 BMI: 34.5 Code: 68940-3 Heart Rate 1: 76 bpm Height: 5'7" Code: 8302-2 Respiratory Rate: 20 bpm SpO2: 97% Temperature: 36.9 (C) / 98.4 (F) Weight: 220 lbs Code: 41658-3 07/25/2017 Blood Pressure 1: 142/76 Code: 8480-6 BMI: 34.9 Code: 00706-2 Heart Rate 1: 92 bpm Height: 5'7" Code: 8302-2 Respiratory Rate: 18 bpm SpO2: 96% Temperature: 36.7 (C) / 98.1 (F) Weight: 223 lbs Code: 33472-8 06/10/2017 Blood Pressure 1: 136/82 Code: 8480-6 BMI: 34.3 Code: 56140-1 Heart Rate 1: 68 bpm Height: 5'7" Code: 8302-2 Respiratory Rate: 20 bpm SpO2: 96% Temperature: 36.7 (C) / 98.0 (F) Weight: 219 lbs Code: 79747-8 05/28/2017 Blood Pressure 1: 136/70 Code: 8480-6 BMI: 34.1 Code: 65363-4 Heart Rate 1: 84 bpm Height: 5'7" Code: 8302-2 Respiratory Rate: 20 bpm SpO2: 95% Temperature: 35.9 (C) / 96.6 (F) Weight: 218 lbs Code: 27631-3 04/04/2017 Blood Pressure 1: 122/78 Code: 8480-6 BMI: 33.4 Code: 96671-1 Heart Rate 1: 68 bpm Height: 5'7" Code: 8302-2 Respiratory Rate: 20 bpm SpO2: 96% Temperature: 36.7 (C) / 98.0 (F) Weight: 213 lbs Code: 89355-8 11/28/2016 Blood Pressure 1: 114/82 Code: 8480-6 BMI: 33.7 Code: 42125-3 Heart Rate 1: 72 bpm Height: 5'7" Code: 8302-2 Respiratory Rate: 20 bpm SpO2: 98% Temperature: 36.4 (C) / 97.6 (F) Weight: 215 lbs Code: 95837-2 06/05/2016 Blood Pressure 1: 104/68 Code: 8480-6 BMI: 33.7 Code: 21247-5 Heart Rate 1: 68 bpm Height: 5'7" Code: 8302-2 Respiratory Rate: 20 bpm SpO2: 96% Temperature: 36.8 (C) / 98.2 (F) Weight: 215 lbs Code: 60350-6 11/08/2015 Blood Pressure 1: 122/70 Code: 8480-6 BMI: 33.8 Code: 88163-5 Heart Rate 1: 80 bpm Height: 5'7" Code: 8302-2 Respiratory Rate: 20 bpm Temperatu re: 36.8 (C) / 98.2 (F) Weight: 216 lbs Code: 17295-0 07/19/2015 Blood Pressure 1: 122/70 Code: 8480-6 BMI: 33.0 Code: 88744-4 Heart Rate 1: 80 bpm Height: 5'7" Code: 8302-2 Respiratory Rate: 18 bpm Temperatu re: 35.9 (C) / 96.6 (F) Weight: 211 lbs Code: 54069-8 03/28/2015 Blood Pressure 1: 124/70 Code: 8480-6 BMI: 31.8 Code: 40979-1 Heart Rate 1: 72 bpm Height: 5'7" Code: 8302-2 Respiratory Rate: 20 bpm Temperatu re: 36.8 (C) / 98.2 (F) Weight: 203 lbs Code: 16177-5 02/08/2015 Blood Pressure 1: 98/58 Code: 8480-6 BMI: 32.1 C ode: 50143-8 Heart Rate 1: 84 bpm Height: 5'7" Code: 8302-2 Respiratory Rate: 20 bpm Temperatu re: 36.7 (C) / 98.0 (F) Weight: 205 lbs Code: 72866-1 01/11/2015 Blood Pressure 1: 118/78 Code: 8480-6 BMI: 32.1 Code: 87093-6 Heart Rate 1: 84 bpm Height: 5'7" Code: 8302-2 Respiratory Rate: 20 bpm Temperatu re: 36.6 (C) / 97.9 (F) Weight: 205 lbs Code: 92924-2 11/24/2014 Blood Pressure 1: 124/80 Code: 8480-6 BMI: 32.0 Code: 26414-1 Heart Rate 1: 76 bpm Height: 5'7" Code: 8302-2 Respiratory Rate: 20 bpm Temperatu re: 36.2 (C) / 97.1 (F) Weight: 204 lbs Code: 77598-0 11/19/2014 Blood Pressure 1: 132/78 Code: 8480-6 BMI: 32.7 Code: 29300-7 Heart Rate 1: 68 bpm Height: 5'7" Code: 8302-2 Respiratory Rate: 20 bpm SpO2: 98% Temperature: 36.7 (C) / 98.0 (F) Weight: 209 lbs Code: 38011-5 10/27/2014 Blood Pressure 1: 118/76 Code: 8480-6 BMI: 32.6 Code: 89654-5 Heart Rate 1: 64 bpm Height: 5'7" Code: 8302-2 Respiratory Rate: 20 bpm Temperatu re: 36.7 (C) / 98.0 (F) Weight: 208 lbs Code: 96188-5 09/23/2014 Blood Pressure 1: 118/68 Code: 8480-6 BMI: 34.3 Code: 81390-8 Heart Rate 1: 78 bpm Height: 5'7" Code: 8302-2 Respiratory Rate: 22 bpm Temperatu re: 36.4 (C) / 97.6 (F) Weight: 219 lbs Code: 56670-1 07/28/2014 Blood Pressure 1: 126/80 Code: 8480-6 BMI: 33.5 Code: 26814-8 Heart Rate 1: 76 bpm Height: 5'7" Code: 8302-2 Respiratory Rate: 20 bpm Temperatu re: 36.4 (C) / 97.6 (F) Weight: 214 lbs Code: 29679-8 03/30/2014 Blood Pressure 1: 128/80 Code: 8480-6 BMI: 35.2 Code: 46976-8 Heart Rate 1: 88 bpm Height: 5'7" Code: 8302-2 Respiratory Rate: 20 bpm Temperatu re: 36.4 (C) / 97.6 (F) Weight: 225 lbs Code: 21740-3 11/24/2013 Blood Pressure 1: 124/82 Code: 8480-6 BMI: 35.6 Code: 06688-6 Heart Rate 1: 80 bpm Height: 5'7" Code: 8302-2 Respiratory Rate: 22 bpm Temperatu re: 36.2 (C) / 97.1 (F) Weight: 227 lbs Code: 93645-2 08/25/2013 Blood Pressure 1: 128/80 Code: 8480-6 BMI: 37.4 Code: 75521-0 Heart Rate 1: 76 bpm Height: 5'7" Code: 8302-2 Respiratory Rate: 20 bpm Temperatu re: 36.6 (C) / 97.9 (F) Weight: 239 lbs Code: 44317-9 06/29/2013 Blood Pressure 1: 106/78 Code: 8480-6 BMI: 38.1 Code: 37856-4 Heart Rate 1: 80 bpm Height: 5'7" Code: 8302-2 Respiratory Rate: 20 bpm Temperatu re: 36.6 (C) / 97.9 (F) Weight: 243 lbs Code: 12170-2 05/26/2013 Blood Pressure 1: 122/80 Code: 8480-6 BMI: 39.3 Code: 46634-4 Heart Rate 1: 80 bpm Height: 5'7" Code: 8302-2 Respiratory Rate: 20 bpm Temperatu re: 36.9 (C) / 98.4 (F) Weight: 251 lbs Code: 21486-5 05/06/2013 Blood Pressure 1: 128/78 Code: 8480-6 BMI: 39.2 Code: 79626-0 Heart Rate 1: 76 bpm Height: 5'7" Code: 8302-2 Respiratory Rate: 22 bpm Temperatu re: 35.8 (C) / 96.4 (F) Weight: 250 lbs Code: 93088-0 04/23/2013 Blood Pressure 1: 132/92 Code: 8480-6 BMI: 39.6 Code: 60915-5 Heart Rate 1: 88 bpm Height: 5'7" Code: 8302-2 Respiratory Rate: 28 bpm SpO2: 97% Temperature: 36.5 (C) / 97.7 (F) Weight: 253 lbs Code: 49153-2 03/31/2013 Blood Pressure 1: 122/80 Code: 8480-6 BMI: 39.0 Code: 90448-5 Heart Rate 1: 84 bpm Height: 5'7" Code: 8302-2 Respiratory Rate: 20 bpm Temperatu re: 36.6 (C) / 97.8 (F) Weight: 249 lbs Code: 41104-2 03/05/2013 Blood Pressure 1: 120/80 Code: 8480-6 BMI: 39.2 Code: 53292-9 Heart Rate 1: 60 bpm Height: 5'7" Code: 8302-2 Respiratory Rate: 22 bpm Temperatu re: 35.9 (C) / 96.6 (F) Weight: 250 lbs Code: 64641-9 02/04/2013 Blood Pressure 1: 124/80 Code: 8480-6 BMI: 38.4 Code: 60612-0 Heart Rate 1: 80 bpm Height: 5'7" Code: 8302-2 Respiratory Rate: 20 bpm Temperatu re: 36.4 (C) / 97.6 (F) Weight: 245 lbs Code: 48018-5 11/27/2012 Blood Pressure 1: 127/83 Code: 8480-6 Te mperature: 36.1 (C) / 96.9 (F) Weight: 243 lbs 2 oz Code: 52370-1 11/11/2012 Blood Pressure 1: 126/82 Code: 8480-6 BMI: 37.4 Code: 30641-9 Heart Rate 1: 80 bpm Height: 5'7" Code: 8302-2 Respiratory Rate: 20 bpm Temperatu re: 36.8 (C) / 98.2 (F) Weight: 239 lbs Code: 00624-5 10/20/2012 Blood Pressure 1: 114/80 Code: 8480-6 BMI: 37.1 Code: 92285-0 Heart Rate 1: 104 bpm Height: 5'7" Code: 8302-2 Respiratory Rate: 20 bpm Temperatu re: 36.9 (C) / 98.4 (F) Weight: 237 lbs Code: 82182-8 09/03/2012 Blood Pressure 1: 118/72 Code: 8480-6 BMI: 37.3 Code: 14524-8 Heart Rate 1: 70 bpm Height: 5'7" Code: 8302-2 Temperature: 35.6 (C) / 96.0 (F) Weight: 238 lbs Code: 54202-2 07/23/2012 Blood Pressure 1: 124/78 Code: 8480-6 BMI: 36.8 Code: 24108-9 Heart Rate 1: 68 bpm Height: 5'7" Code: 8302-2 Temperature: 35.6 (C) / 96.0 (F) Weight: 235 lbs Code: 05661-1 05/20/2012 Blood Pressure 1: 112/70 Code: 8480-6 BMI: 37.1 Code: 35625-2 Heart Rate 1: 76 bpm Height: 5'7" Code: 8302-2 Respiratory Rate: 20 bpm Temperatu re: 36.7 (C) / 98.1 (F) Weight: 237 lbs Code: 49445-3 04/04/2012 Blood Pressure 1: 110/64 Code: 8480-6 BMI: 37.1 Code: 14046-4 Heart Rate 1: 68 bpm Height: 5'7" Code: 8302-2 Temperature: 36.1 (C) / 97.0 (F) Weight: 237 lbs Code: 67160-2 02/20/2012 Blood Pressure 1: 136/78 Code: 8480-6 BMI: 37.1 Code: 13081-4 Heart Rate 1: 72 bpm Height: 5'7" Code: 8302-2 Respiratory Rate: 20 bpm Temperatu re: 36.7 (C) / 98.0 (F) Weight: 237 lbs Code: 06078-9 01/02/2012 Blood Pressure 1: 122/70 Code: 8480-6 BMI: 37.1 Code: 79898-0 Heart Rate 1: 76 bpm Height: 5'7" Code: 8302-2 Respiratory Rate: 20 bpm Temperatu re: 37.0 (C) / 98.6 (F) Weight: 237 lbs Code: 37063-1 09/04/2011 Blood Pressure 1: 120/84 Code: 8480-6 BMI: 35.4 Code: 50780-0 Heart Rate 1: 68 bpm Height: 5'7" Code: 8302-2 Temperature: 30.0 (C) / 86.0 (F) Weight: 226 lbs Code: 58214-6 08/14/2011 Blood Pressure 1: 120/82 Code: 8480-6 BMI: 36.5 Code: 59725-3 Heart Rate 1: 80 bpm Height: 5'7" Code: 8302-2 Temperature: 36.6 (C) / 97.8 (F) Weight: 233 lbs Code: 59267-8 07/31/2011 Blood Pressure 1: 138/86 Code: 8480-6 BMI: 37.0 Code: 81598-2 Heart Rate 1: 94 bpm Height: 5'7" Code: 8302-2 Temperature: 35.4 (C) / 95.7 (F) Weight: 236 lbs Code: 49044-6 07/25/2011 Blood Pressure 1: 128/80 Code: 8480-6 BMI: 37.0 Code: 91225-6 Heart Rate 1: 80 bpm Height: 5'7" Code: 8302-2 Temperature: 35.6 (C) / 96.0 (F) Weight: 236 lbs Code: 97365-8 07/12/2011 Blood Pressure 1: 132/80 Code: 8480-6 BMI: 37.0 Code: 47692-7 Heart Rate 1: 96 bpm Height: 5'7" Code: 8302-2 Respiratory Rate: 20 bpm Temperatu re: 36.3 (C) / 97.3 (F) Weight: 236 lbs Code: 14992-8 05/09/2011 Blood Pressure 1: 106/78 Code: 8480-6 BMI: 36.6 Code: 74873-8 Heart Rate 1: 72 bpm Height: 5'7" Code: 8302-2 Respiratory Rate: 20 bpm Temperatu re: 36.4 (C) / 97.6 (F) Weight: 234 lbs Code: 22711-4 05/02/2011 Blood Pressure 1: 96/72 Code: 8480-6 BMI: 36.6 C ode: 50969-4 Heart Rate 1: 108 bpm Height: 5'7" Code: 8302-2 Respiratory Rate: 24 bpm Temperatu re: 36.7 (C) / 98.0 (F) Weight: 234 lbs Code: 31130-2 04/25/2011 Blood Pressure 1: 120/72 Code: 8480-6 BMI: 36.5 Code: 73806-0 Heart Rate 1: 70 bpm Height: 5'7" Code: 8302-2 Temperature: 36.7 (C) / 98.0 (F) Weight: 233 lbs Code: 90782-4 04/04/2011 Blood Pressure 1: 126/92 Code: 8480-6 BMI: 36.5 Code: 12616-8 Heart Rate 1: 84 bpm Height: 5'7" Code: 8302-2 Respiratory Rate: 20 bpm Temperatu re: 36.2 (C) / 97.2 (F) Weight: 233 lbs Code: 98501-0 03/01/2011 Blood Pressure 1: 132/78 Code: 8480-6 Heart Rate 1: 88 bpm Temperature: 36.8 (C) / 98.2 (F) Weight: 231 lbs Code: 67890-1 01/04/2011 Blood Pressure 1: 122/78 Code: 8480-6 BMI: 37.0 Code: 66209-4 Heart Rate 1: 80 bpm Height: 5'7" Code: 8302-2 Temperature: 37.0 (C) / 98.6 (F) Weight: 236 lbs Code: 58263-5 12/07/2010 Blood Pressure 1: 132/92 Code: 8480-6 Heart Rate 1: 98 bpm Temperature: 36.2 (C) / 97.2 (F) Weight: 237 lbs Code: 02281-2 10/09/2010 Blood Pressure 1: 128/80 Code: 8480-6 Heart Rate 1: 72 bpm Temperature: 36.5 (C) / 97.7 (F) Weight: 244 lbs Code: 19490-5 08/07/2010 Blood Pressure 1: 114/80 Code: 8480-6 Heart Rate 1: 72 bpm Temperature: 36.2 (C) / 97.1 (F) Weight: 245 lbs Code: 64292-0 06/06/2010 Blood Pressure 1: 132/86 Code: 8480-6 Heart Rate 1: 80 bpm Temperature: 36.8 (C) / 98.2 (F) Weight: 242 lbs Code: 87930-3 04/12/2010 Blood Pressure 1: 126/82 Code: 8480-6 Heart Rate 1: 72 bpm Temperature: 36.8 (C) / 98.2 (F) Weight: 237 lbs Code: 19145-3 03/20/2010 Blood Pressure 1: 124/78 Code: 8480-6 Heart Rate 1: 76 bpm Temperature: 36.1 (C) / 97.0 (F) Weight: 239 lbs Code: 30509-0 01/30/2010 Blood Pressure 1: 118/80 Code: 8480-6 Heart Rate 1: 84 bpm Temperature: 37.1 (C) / 98.7 (F) Weight: 239 lbs Code: 10852-6 01/09/2010 Blood Pressure 1: 120/72 Code: 8480-6 BMI: 36.8 Code: 10222-0 Heart Rate 1: 80 bpm Height: 5'7" Code: 8302-2 Temperature: 36.1 (C) / 97.0 (F) Weight: 235 lbs Code: 10551-5 11/07/2009 Blood Pressure 1: 140/36 Cod e: 8480-6 10/26/2009 Blood Pressure 1: 126/82 Code: 8480-6 BMI: 36.9 Code: 21046-4 Heart Rate 1: 84 bpm Height: 5'7" Code: 8302-2 Temperature: 36.5 (C) / 97.7 (F) Weight: 234 lbs Code: 50427-2 10/17/2009 Blood Pressure 1: 140/88 Code: 8480-6 BMI: 36.3 Code: 04653-2 Heart Rate 1: 88 bpm Height: 5'7" Code: 8302-2 Temperature: 36.7 (C) / 98.0 (F) Weight: 232 lbs Code: 29842-1 10/04/2009 Blood Pressure 1: 140/90 Code: 8480-6 BMI: 36.3 Code: 10677-2 Heart Rate 1: 84 bpm Height: 5'7" Code: 8302-2 Temperature: 36.4 (C) / 97.6 (F) Weight: 232 lbs Code: 97595-9 09/21/2009 Blood Pressure 1: 136/82 Code: 8480-6 BMI: 36.3 Code: 64445-8 Heart Rate 1: 88 bpm Height: 5'7" Code: 8302-2 Temperature: 35.8 (C) / 96.4 (F) Weight: 232 lbs Code: 50469-9 Functional Status No Functional Status data Reason [...] cough 08/13/2017 cough 07/29/[address] [facility] with flu and has finished prednisone [...] 09/04/2011 chest congestion 09/04/2011 follow up 08/14/2011 [facility] 08/14/2011 venous thrombosis 08/14/2011 abdominal pain [...] Encounter Performer Location Location Address Codes Date () OFFICE/OUTPATIENT VISIT EST Diagnosis: Acute cystitis[ICD10: N30.00] Marlene MORILLOLINE TracyPaige OTF DO [employer] [address] [place] [id number] CPT-4: 95135 09/05/2022 ([id number]) OFFICE/OUTPATIENT VISIT EST Diagnosis: Degeneration of lumbar or lumbosacral intervertebral disc[ICD10: M51.37] Diagnosis: Cervicalgia[ICD10: M54.2] Marlene MORILLOLINE TracyPaige DIONICIO NDEDeejay DO [employer] [address] [place] [id number] CPT-4: 00288 08/30/2022 ([id number]) OFFICE/OUTPATIENT VISIT EST Diagnosis: Hypothyroidism[ICD10: E03.9] Diagnosis: Essential (primary) hypertension[ICD10: I10] Diagnosis: Mixed hyperlipidemia[ICD10: E78.2] Diagnosis: Stress at home[ICD10: F43.9] Jayna Greenbergmarialuisa GUTIERREZ TracyPaige DIONICIONDER DO [employer] [address] [place] [address] CPT-4: 64752 08/07/2022 ([id number]) OFFICE/OUTPATIENT VISIT EST Diagnosis: Acute cystitis[ICD10: N30.00] Marlene MORILLOLINE TracyPaige JANISER DO [employer] [address] [place] [address] CPT-4: 48398 06/29/2022 ([id number]) OFFICE/OUTPATIENT VISIT EST Diagnosis: Depression[ICD10: F32.A] Diagnosis: Hypothyroidism[ICD10: E03.9] Jayna Dioniciomarialuisa GUTIERREZ TracyPaige DIONICIONDER DO [employer] [address] [place] [address] CPT-4: 49118 05/28/2022 ([id number]) OFFICE/OUTPATIENT VISIT EST Diagnosis: Depression[ICD10: F32.A] Diagnosis: Fatigue[ICD10: R53.83] Diagnosis: Hypothyroidism[ICD10: E03.9] Diagnosis: Hyperglycemia[ICD10: R73.9] Jayna GUTIERREZ S. 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] Jayna VANESSA [address] [address] CPT-4: 32553 02/15/2022 ([id number]) Annual depression screening, 15 minutes Diagnosis: Encounter for general adult medical examination without abnormal findings[ICD10: Z00.00] Diagnosis: Essential (primary) hypertension[ICD10: I10] Diagnosis: Mixed hyperlipidemia[ICD10: E78.2] Diagnosis: Hypothyroidism, unspecified[ICD10: E03.9] Diagnosis: Chronic obstructive pulmonary disease, unspecified[ICD10: J44.9] Jayna VANESSA [address] [address] CPT-4: G0444 02/06/2022 ([id number]) OFFICE/OUTPATIENT VISIT EST Diagnosis: 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] Diagnosis: Vision changes[ICD10: H53.9] Latasha Anand JAYNA VANESSA [address] [address] CPT-4: 54667 02/01/2022 ([id number]) OFFICE/OUTPATIENT VISIT EST Diagnosis: Diarrhea[ICD10: R19.7] Diagnosis: Cough[ICD10: R05.9] Jayna Dionicioleydaapolinar MORILLOJAYNA TracyPaige OTF [address] [address] CPT-4: 10510 11/30/19 ([id number]) OFFICE/OUTPATIENT VISIT EST Diagnosis: Post-viral cough syndrome[ICD10: R05.8] Diagnosis: Otalgia of both ears[ICD10: H92.03] Diagnosis: Diarrhea[ICD10: R19.7] Jaynaparam GUTIERREZ TracyPaige BIANCA Villalba DO [address] [address] CPT-4: 94604 11/22/2021 ([id number]) OFFICE/OUTPATIENT VISIT EST Diagnosis: Diarrhea of presumed infectious origin[ICD10: R19.7] Diagnosis: Altered taste[ICD10: R43.2] Diagnosis: Chronic bronchitis[ICD10: J42] Diagnosis: History of recent pneumonia[ICD10: Z87.01] Latasha MORILLOLINE TracyPaige OTF SAEZ [address] [address] CPT- 4: 60817 11/21/2021 ([id number]) OFFICE/OUTPATIENT VISIT EST Diagnosis: Serous otitis media[ICD10: H65.90] Diagnosis: Postnasal drip[ICD10: R09.82] Diagnosis: Pneumonia[ICD10: J18.9] Jayna GUTIERREZ TracyPaige JANIS APOLINAR DO [address] [address] CPT-4: 22659 11/09/2021 ([id number]) NO CHARGE Diagnosis: Pneumonia[ICD10: J18.9] Diagnosis: Respiratory distress[ICD10: R06.03] Jayna KENNEY TracyPaige OTF DO [address] [address] CPT-4: 73699 10/31/2021 ([id number]) OFFICE/OUTPATIENT VISIT EST Diagnosis: Vertigo[ICD10: R42] Diagnosis: Nausea[ICD10: R11.0] Diagnosis: Pneumonia[ICD10: J18.9] Jayna BRUCE [address] [address] CPT-4: 64399 10/30/2021 ([id number]) OFFICE/OUTPATIENT VISIT EST Diagnosis: Cervicalgia[ICD10: M54.2] Jayna MAGANA[address] [address] CPT-4: 62305 09/05/2021 ([id number]) OFFICE/OUTPATIENT VISIT EST Diagnosis: 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] Diagnosis: Seronegative rheumatoid arthritis[ICD10: M06.00] Latasha Kika JAYNA VANESSA [address] [address] CPT- 4: 62123 08/24/2021 ([id number]) OFFICE/OUTPATIENT VISIT EST Diagnosis: Upper respiratory infection[ICD10: J06.9] Diagnosis: Contact with and (suspected) exposure to other viral communicable diseases[ICD10: Z20.828] Latasha Kika JAYNA VANESSA [address] [address] CPT-4: 09565 07/04/2021 ([id number]) NURSE/OUTPATIENT VISIT EST Diagnosis: FLU VACCINE[ICD10: Z23] Jayna BRUCE [address] [address] CPT-4: 76115 03/29/2021 ([id number]) OFFICE/OUTPATIENT VISIT EST Diagnosis: Vasovagal episode[ICD10: R55] Diagnosis: Orthostatic hypotension[ICD10: I95.1] Latasha Kika GERBER Daniel VANESSA [address] [address] CPT-4: 67977 03/01/2021 ([id number]) OFFICE/OUTPATIENT VISIT EST Diagnosis: Sebaceous cyst of right axilla[ICD10: L72.3] Latasha VANESSA DO [address] [address] CPT- 4: 45971 02/08/2021 ([id number]) OFFICE/OUTPATIENT VISIT EST Diagnosis: Contact dermatitis[ICD10: L25.9] Jayna VANESSA DO [address] [address] CPT-4: 34929 01/19/2021 ([id number]) OFFICE/OUTPATIENT VISIT EST Diagnosis: Upper respiratory infection[ICD10: J06.9] Diagnosis: COPD exacerbation[ICD10: J44.1] Latasha VANESSA DO [address] [address] CPT-4: 10905 11/29/2020 ([id number]) OFFICE/OUTPATIENT VISIT EST Diagnosis: Sinusitis[ICD10: J32.9] Diagnosis: Acute pansinusitis, recurrence not specified[ICD10: J01.40] Latasha VANESSA DO [address] [address] CPT-4: 60526 09/29/2020 OFFICE/OUTPATIENT VISIT EST Diagnosis: Other seasonal allergic rhinitis[ICD10: J30.2] Diagnosis: Chronic bronchitis[ICD10: J42] Diagnosis: 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] Diagnosis: Middle ear effusion[ICD10: H65.90] Diagnosis: Fluid level behind tympanic membrane of both ears[ICD10: H65.93] Latasha VANESSA DO [address] [address] CPT-4: 88036 09/19/2020 ([id number]) OFFICE/OUTPATIENT VISIT EST Diagnosis: Right-sided tinnitus[ICD10: H93.11] Jayna Otf VANESSA DO [address] [address] CPT-4: 36795 08/10/2020 ([id number]) OFFICE/OUTPATIENT VISIT EST Diagnosis: Dysfunction of right eustachian tube[ICD10: H69.81] Diagnosis: Right-sided tinnitus[ICD10: H93.11] [facility] [address] [place] [address] CPT-4: 12613 2020 ([id number]) OFFICE/OUTPATIENT VISIT EST Diagnosis: Pyelonephritis[ICD10: N12] Diagnosis: Anemia[ICD10: D64.9] Diagnosis: Blood in stool[ICD10: K92.1] Jayna GREENBERGNDER DO [address] [address] CPT-4: 30618 07/13/2020 ([id number]) OFFICE/OUTPATIENT VISIT EST Diagnosis: Acute gastroenteritis[ICD10: K52.9] Jayna GREENBERGNDER [address] [address] CPT-4: 72804 07/05/2020 ([id number]) OFFICE/OUTPATIENT VISIT EST Diagnosis: Essential hypertension[ICD10: I10] Diagnosis: Hypothyroidism, unspecified[ICD10: E03.9] Diagnosis: Metabolic syndrome[ICD10: E88.81] Diagnosis: Mixed hyperlipidemia[ICD10: E78.2] Diagnosis: Byzmh-1-mbmhquggrjr 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] Jayna GREENBERGNDER [address] [address] CPT- 4: 25820 06/22/2020 ([id number]) OFFICE/OUTPATIENT VISIT EST Diagnosis: Urinary tract infection[ICD10: N39.0] Jayna VILLARREALEMILIO BUZZ GREENBERGNDER DO [employer] [address] [place] [address] CPT-4: 99857 05/17/2020 ([id number]) OFFICE/OUTPATIENT VISIT EST Diagnosis: Right pulmonary embolus[ICD10: I26.99] Jaynaloli Vanessa NORRIS MARIA Daniel ORENDER DO [address] [address] CPT-4: 41196 03/14/2020 ([id number]) OFFICE/OUTPATIENT VISIT EST Diagnosis: COVID-19[ICD10: U07.1] Diagnosis: Pneumonia[ICD10: J18.9] Diagnosis: Dyspnea[ICD10: R06.00] Jayna Villalba DO [facility] [address] [place] [address] CPT-4: 01099 03/07/2020 ([id number]) OFFICE/OUTPATIENT VISIT EST Diagnosis: Upper respiratory infection[ICD10: J06.9] Genesis VANESSA [facility] [address] [place] [address] CPT-4: 37950 02/11/2020 ([id number]) OFFICE/OUTPATIENT VISIT EST Diagnosis: Dermatitis[ICD10: L30.9] Diagnosis: Urticaria[ICD10: L50.9] Jaynaparam Vanessa [facility] [address] [place] [address] CPT-4: 26737 09/29/2019 ([id number]) OFFICE/OUTPATIENT VISIT EST Diagnosis: Bone spur of right foot[ICD10: M77.51] Diagnosis: Recurrent UTI[ICD10: N39.0] Diagnosis: MRSA (methicillin resistant staph aureus) culture positive[ICD10: Z22.322] Jayna Vanessa [facility] [address] [place] [address] CPT-4: 27291 09/14/2019 ([id number]) NURSE/OUTPATIENT VISIT EST Diagnosis: Urinary tract infection[ICD10: N39.0] Jayna VANESSA [facility] [address] [place] [address] CPT-4: 79693 09/11/2019 ([id number]) NURSE/OUTPATIENT VISIT EST Diagnosis: Urinary tract infection, site not specified[ICD10: N39.0] Jayna VANESSA [facility] [address] [place] [address] CPT-4: 98131 09/08/2019 ([id number]) NURSE/OUTPATIENT VISIT EST Diagnosis: Urinary tract infection, site not specified[ICD10: N39.0] [facility]na [facility] [address] [place] [address] CPT-4: 01852 09/07/2019 ([id number]) OFFICE/OUTPATIENT VISIT EST Diagnosis: Pelvic pain in female[ICD10: R10.2] Diagnosis: Urinary frequency[ICD10: R35.0] Genesis [facility] [address] [place] [address] CPT-4: 05270 09/02/2019 ([id number]) OFFICE/OUTPATIENT VISIT EST Diagnosis: Sinusitis[ICD10: J32.9] Genesis [facility]ANG [facility] [address] [place] [address] CPT-4: 52463 07/09/2019 ([id number]) OFFICE/OUTPATIENT VISIT EST Diagnosis: UTI (urinary tract infection)[ICD10: N39.0] Diagnosis: FLU VACCINE[ICD10: Z23] Genesis [facility] [address] [place] [address] CPT-4: 46509 04/15/2019 ([id number]) OFFICE/OUTPATIENT VISIT EST Diagnosis: Pain in right leg[ICD10: M79.604] Genesis [facility] [address] [place] [address] CPT-4: 92016 04/07/2019 ([id number]) OFFICE/OUTPATIENT VISIT EST Diagnosis: Diverticulitis of large intestine without perforation or abscess without bleeding[ICD10: K57.32] Diagnosis: Cystitis[ICD10: N30.90] Jayna [facility] [address] [place] [address] CPT-4: 55216 03/25/2019 ([id number]) OFFICE/OUTPATIENT VISIT EST Diagnosis: Abdominal pain[ICD10: R10.9] Diagnosis: Cystitis[ICD10: N30.90] Jayna JIANG DO [address] [address] CPT-4: 06457 03/18/2019 ([id number]) OFFICE/OUTPATIENT VISIT EST Diagnosis: Diverticulitis of large intestine without perforation or abscess without bleeding[ICD10: K57.32] Diagnosis: Generalized abdominal pain[ICD10: R10.84] Diagnosis: Urinary tract infection, site not specified[ICD10: N39.0] Genesis VANESSA DO [address] [address] CPT-4: 45285 01/26/2019 ([id number]) OFFICE/OUTPATIENT VISIT EST Diagnosis: Mild intermittent asthma with (acute) exacerbation[ICD10: J45.21] Diagnosis: Allergic rhinitis due to pollen[ICD10: J30.1] Jayna VANESSA DO [address] [address] CPT- 4: 55345 01/08/2019 ([id number]) OFFICE/OUTPATIENT VISIT EST Diagnosis: Mild intermittent asthma with (acute) exacerbation[ICD10: J45.21] Diagnosis: URI, ACUTE[ICD10: J06.9] Diagnosis: Urinary tract infection, site not specified[ICD10: N39.0] Jayna VANESSA DO [address] [address] CPT-4: 99625 01/06/2019 ([id number]) OFFICE/OUTPATIENT VISIT EST Diagnosis: Benign paroxysmal vertigo, bilateral[ICD10: H81.13] Diagnosis: Migraine without aura, not intractable, without status migrainosus[ICD10: G43.009] Jayna VANESSA DO [address] [address] CPT-4: 47317 10/30/2018 ([id number]) OFFICE/OUTPATIENT VISIT EST Diagnosis: Acute bronchitis, unspecified[ICD10: J20.9] Diagnosis: Cough[ICD10: R05] Diagnosis: Other seasonal allergic rhinitis[ICD10: J30.2] Stacey Ping GREENBERGNDER DO [employer] [address] [place] [address] CPT- 4: 44297 10/07/2018 ([id number]) OFFICE/OUTPATIENT VISIT EST Diagnosis: Pain in unspecified joint[ICD10: M25.50] Diagnosis: Pain in right ankle and joints of right foot[ICD10: M25.571] Diagnosis: Other specified disorders of bone density and structure, unspecified site[ICD10: M85.80] Jayna GUTIERREZ Daniel GREENBERGNDER DO [employer] [address] [place] [address] CPT-4: 66877 06/23/2018 ([id number]) OFFICE/OUTPATIENT VISIT EST Diagnosis: Hypothyroidism, unspecified[ICD10: E03.9] Diagnosis: Mixed hyperlipidemia[ICD10: E78.2] Jayna ALVARENGA SPaige GREENBERGNDER DO [employer] [address] [place] [address] CPT-4: 63268 01/16/2018 ([id number]) OFFICE/OUTPATIENT VISIT EST Diagnosis: Cervicalgia[ICD10: M54.2] Genesis Francoisdi JAYNA Daniel GREENBERG NDER DO [employer] [address] [place] [address] CPT-4: 71146 10/16/2017 ([id number]) OFFICE/OUTPATIENT VISIT EST Diagnosis: Headache[ICD10: R51] Diagnosis: Dizziness and giddiness[ICD10: R42] Jayna KENNEY SPaige GREENBERGNDER DO [employer] [address] [place] [address] CPT-4: 35021 09/12/2017 OFFICE/OUTPATIENT VISIT EST Diagnosis: Cough[ICD10: R05] Genesis Fernández JAYNA TracyPaige DIONICIONDER DO [employer] [address] [place] [address] CPT-4: 31887 08/20/2017 ([id number]) OFFICE/OUTPATIENT VISIT EST Diagnosis: COUGH[ICD10: R05] Jayna GUTIERREZ TracyPaige ORENDER DO [employer] [address] [place] [address] CPT-4: 60636 08/13/19 ([id number]) OFFICE/OUTPATIENT VISIT EST Diagnosis: Acute bronchospasm[ICD10: J98.01] Jayna VANESSA DO [address] [address] CPT-4: 87786 07/29/2017 OFFICE/OUTPATIENT VISIT EST Diagnosis: Influenza due to identified novel influenza A virus with other respiratory manifestations[ICD10: J09.X2] Genesis VANESSA DO [address] [address] CPT-4: 27146 07/25/2017 ([id number]) OFFICE/OUTPATIENT VISIT EST Diagnosis: Pain in unspecified joint[ICD10: M25.50] Jayna VANESSA DO [address] [address] CPT- 4: 91328 06/10/2017 OFFICE/OUTPATIENT VISIT EST Diagnosis: Acute bronchitis, unspecified[ICD10: J20.9] Genesis VANESSA DO [address] [address] CPT- 4: 70483 05/28/2017 ([id number]) OFFICE/OUTPATIENT VISIT EST Diagnosis: Hypothyroidism, unspecified[ICD10: E03.9] Diagnosis: Mixed hyperlipidemia[ICD10: E78.2] Diagnosis: Wczha-4-dathcokbunr 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] Diagnosis: Sebaceous cyst[ICD10: L72.3] Jayna VANESSA DO [address] [address] CPT-4: 27886 11/28/2016 ([id number]) OFFICE/OUTPATIENT VISIT EST Diagnosis: Right upper quadrant pain[ICD10: R10.11] Diagnosis: Epigastric pain[ICD10: R10.13] Jayna VANESSA DO [address] [address] CPT-4: 48672 06/05/2016 ([id number]) OFFICE/OUTPATIENT VISIT EST Diagnosis: FLU VACCINE[ICD10: Z23] Jayna JIANG DO [address] [address] CPT-4: 31317 05/01/2016 OFFICE/OUTPATIENT VISIT EST Diagnosis: Hypothyroidism, unspecified[ICD10: E03.9] Diagnosis: Type 1 diabetes mellitus without complications[ICD10: E10.9] Diagnosis: Mixed hyperlipidemia[ICD10: E78.2] Diagnosis: Essential (primary) hypertension[ICD10: I10] Diagnosis: Mixed incontinence[ICD10: N39.46] Jayna VANESSA [address] [address] CPT-4: 97156 11/08/2015 ([id number]) OFFICE/OUTPATIENT VISIT EST Diagnosis: Hypothyroidism, unspecified[ICD10: E03.9] Diagnosis: Other fatigue[ICD10: R53.83] Jayna VANESSA DO [address] [address] CPT-4: 15606 07/19/2015 ([id number]) OFFICE/OUTPATIENT VISIT EST Diagnosis: Hypothyroidism, unspecified[ICD10: E03.9] Diagnosis: Mixed hyperlipidemia[ICD10: E78.2] Diagnosis: Metabolic syndrome[ICD10: E88.81] Diagnosis: Right lower quadrant abdominal tenderness[ICD10: R10.813] Diagnosis: FLU VACCINE[ICD10: Z23] Jayna JIANG DO [address] [address] CPT-4: 11931 03/28/2015 ([id number]) OFFICE/OUTPATIENT VISIT EST Diagnosis: MALAISE AND FATIGUE[ICD9: 780.79] Diagnosis: DEPRESSIVE DISORDER NEC[ICD9: 311] Diagnosis: HYPOTHYROIDISM[ICD9: 244.9] Diagnosis: PNEUMOCOCCAL VACCINE[ICD10: Z23] Jayna VANESSA DO [address] [address] CPT-4: 16833 02/08/2015 ([id number]) OFFICE/OUTPATIENT VISIT EST Diagnosis: MALAISE AND FATIGUE[ICD9: 780.79] Diagnosis: DEPRESSIVE DISORDER NEC[ICD9: 311] Diagnosis: HYPOTHYROIDISM[ICD9: 244.9] Diagnosis: ARTHRALGIA-MULTIPLE SITES[ICD9: 719.49] Jayna SAM TracyPaige OTF [employer] [address] [place] [address] CPT-4: 93862 01/11/2015 ([id number]) OFFICE/OUTPATIENT VISIT EST 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] Diagnosis: - I - HYPOTHYROIDISM[ICD9: 244.9] Diagnosis: COUGH[ICD10: R05] Diagnosis: ALLERGIC RHINITIS[ICD9: 477.9] Diagnosis: Lumbar degenerative disc disease[ICD9: 722.52] Jayna GUTIERREZ TracyPaige DIONICIOMARIALUISA [address] [address] CPT- 4: 17387 11/24/2014 ([id number]) OFFICE/OUTPATIENT VISIT EST Diagnosis: Allergic reaction[ICD9: 995.3] Galina VILLARREALQUELOLI Gibson OTF [employer] [address] [place] [address] CPT-4: 47356 11/19/2014 ([id number]) OFFICE/OUTPATIENT VISIT EST Diagnosis: ALLERGIC RHINITIS[ICD9: 477.9] Diagnosis: WHEEZING[ICD9: 786.07] Diagnosis: URINARY TRACT INFECTION[ICD9: 599.0] Diagnosis: Right flank pain[ICD9: 789.09] Conchita VANESSA [address] [address] CPT-4: 89188 10/27/2014 ([id number]) OFFICE/OUTPATIENT VISIT EST Diagnosis: URINARY TRACT INFECTION[ICD9: 599.0] Diagnosis: Flank pain[ICD9: 789.09] Conchita CARTER [address] [address] CPT-4: 72041 09/23/2014 ([id number]) OFFICE/OUTPATIENT VISIT EST Diagnosis: HYPERTENSION[ICD9: 401.9] Diagnosis: - I - HYPOTHYROIDISM[ICD9: 244.9] Diagnosis: HYPERLIPIDEMIA NEC/NOS[ICD9: 272.4] Diagnosis: DYSMETABOLIC SYNDROME X[ICD9: 277.7] Jayna QUEZADA S. ORENDER DO [address] [address] CPT-4: 56529 07/28/2014 OFFICE/OUTPATIENT VISIT EST Diagnosis: HYPERTENSION[ICD9: 401.9] Diagnosis: GROSS HEMATURIA[ICD9: 599.71] Jayna GUTIERREZ SPaige ORENDER DO [address] [address] CPT-4: 96554 03/30/2014 ([id number]) OFFICE/OUTPATIENT VISIT EST 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] Diagnosis: - I - HYPOTHYROIDISM[ICD9: 244.9] Diagnosis: HYPERLIPIDEMIA NEC/NOS[ICD9: 272.4] Diagnosis: HYPERTENSION[ICD9: 401.9] Jayna GUTIERREZ S. ORE NDER DO [address] [address] CPT-4: 81949 11/24/2013 ([id number]) OFFICE/OUTPATIENT VISIT EST 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] Diagnosis: HYPERLIPIDEMIA NEC/NOS[ICD9: 272.4] Diagnosis: HYPOTHYROIDISM[ICD9: 244.9] Jayna Vanessa JAYNA S. O RENDER DO [address] [address] CPT-4: 14177 08/25/2013 OFFICE/OUTPATIENT VISIT EST Diagnosis: DEPRESSIVE DISORDER NEC[ICD9: 311] Jayna ALVARENGA S. ORENDER DO [address] [address] CPT-4: 94412 06/29/2013 OFFICE/OUTPATIENT VISIT EST Diagnosis: DEPRESSIVE DISORDER NEC[ICD9: 311] Jayna ALVARENGA S. ORENDER DO [employer] [address] [place] [address] CPT-4: 57184 05/26/2013 ([id number]) OFFICE/OUTPATIENT VISIT EST Diagnosis: BRONCHITIS, ACUTE[ICD9: 466.0] Diagnosis: HYPOTHYROIDISM[ICD9: 244.9] Diagnosis: HYPERLIPIDEMIA NEC/NOS[ICD9: 272.4] Diagnosis: Shoulder pain[ICD9: 719.41] Jayna PUCKETT [address] [address] CPT-4: 01645 05/06/2013 ([id number]) OFFICE/OUTPATIENT VISIT EST Diagnosis: BRONCHITIS, ACUTE[ICD9: 466.0] Diagnosis: SINUSITIS, ACUTE[ICD9: 461.9] Jayna VANESSA [address] [address] CPT-4: 25187 04/23/2013 ([id number]) OFFICE/OUTPATIENT VISIT EST Diagnosis: DYSPNEA[ICD9: 786.09] Diagnosis: EDEMA[ICD9: 782.3] Diagnosis: OPGVO-[id number] DEFICIENCY[ICD9: 273.4] Diagnosis: COUGH[ICD9: 786.2] Jayna VANESSA [address] [address] CPT-4: 86004 03/31/20 OFFICE/OUTPATIENT VISIT EST Diagnosis: Chest pain[ICD9: 786.50] Diagnosis: ANXIETY STATE NOS[ICD9: 300.00] Conchita Charlesjean paulchristiano JAYNA VANESSA [address] [address] CPT-4: 44543 03/05/2013 ([id number]) OFFICE/OUTPATIENT VISIT EST Diagnosis: HYPERLIPIDEMIA NEC/NOS[ICD9: 272.4] Diagnosis: HYPOTHYROIDISM[ICD9: 244.9] Diagnosis: Awrss-5-qeskyexxerp deficiency[ICD9: 273.4] Diagnosis: ALLERGIC RHINITIS[ICD9: 477.9] Jayna VANESSA [address] [address] CPT-4: 95035 02/04/2013 ([id number]) OFFICE/OUTPATIENT VISIT EST Diagnosis: COUGH[ICD9: 786.2] Diagnosis: ALLERGIC RHINITIS[ICD9: 477.9] Jayna VANESSA DO [address] [address] CPT-4: 57042 11/27/2012 ([id number]) OFFICE/OUTPATIENT VISIT EST Diagnosis: COUGH[ICD9: 786.2] Diagnosis: DYSPNEA[ICD9: 786.09] Jayna VANESSA DO [address] [address] CPT-4: 80482 11/11/2012 ([id number]) OFFICE/OUTPATIENT VISIT EST Diagnosis: ABDOMINAL PAIN[ICD9: 789.00] Diagnosis: DIARRHEA[ICD9: 787.91] Diagnosis: COUGH[ICD9: 786.2] Jayna VANESSA [address] [address] CPT-4: 87272 10/21/19 13 OFFICE/OUTPATIENT VISIT EST Diagnosis: COUGH[ICD9: 786.2] Diagnosis: SINUSITIS, ACUTE[ICD9: 461.9] Diagnosis: PHARYNGITIS, ACUTE[ICD9: 462] Jayna VANESSA [address] [address] CPT-4: 10796 09/03/2012 OFFICE/OUTPATIENT VISIT EST Diagnosis: ABDOMINAL PAIN[ICD9: 789.00] Diagnosis: Diarrhea[ICD9: 787.91] Jayna Villalba [address] [address] CPT-4: 03563 07/23/2012 ([id number]) OFFICE/OUTPATIENT VISIT EST Diagnosis: DM 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 TYPE II, UNCONTROLLED[ICD9: 250.02] Diagnosis: HYPERLIPIDEMIA NEC/NOS[ICD9: 272.4] Diagnosis: GERD[ICD9: 530.81] Jayna VANESSA [address] [address] CPT-4: 70026 11/27/20 12 OFFICE/OUTPATIENT VISIT EST Diagnosis: DERMATITIS NOS[ICD9: 692.9] Galina Dafne PUCKETT DO [address] [address] CPT-4: 56721 04/04/2012 ([id number]) OFFICE/OUTPATIENT VISIT EST Diagnosis: HYPERLIPIDEMIA NEC/NOS[ICD9: 272.4] Diagnosis: HYPOTHYROIDISM[ICD9: 244.9] Diagnosis: DYSMETABOLIC SYNDROME X[ICD9: 277.7] Jayna Sanchez DIONICIONDER DO [address] [address] CPT-4: 72381 01/02/2012 OFFICE/OUTPATIENT VISIT EST Diagnosis: COUGH[ICD9: 786.2] Diagnosis: SINUSITIS, ACUTE[ICD9: 461.9] Lizzie Sanchez DIONICIOMARIALUISA [address] [address] CPT-4: 27162 09/04/2011 OFFICE/OUTPATIENT VISIT EST Diagnosis: Diverticulitis[ICD9: 562.11] Diagnosis: THROMBOPHLEBITIS[ICD9: 451.9] Jayna Sanchez DIONICIOMARIALUISA [address] [address] CPT-4: 22790 08/14/2011 OFFICE/OUTPATIENT VISIT EST Diagnosis: COUGH[ICD9: 786.2] Jayna Sanchez DIONICIOMARIALUISA [address] [address] CPT-4: 73746 07/25/19 OFFICE/OUTPATIENT VISIT EST Diagnosis: HYPOTHYROIDISM[ICD9: 244.9] Diagnosis: HYPERLIPIDEMIA NEC/NOS[ICD9: 272.4] Diagnosis: Total knee replacement status[ICD9: V43.65] Jayna Sanchez OTF [address] [address] CPT- 4: 10210 07/12/2011 OFFICE/OUTPATIENT VISIT EST Diagnosis: BRONCHITIS, ACUTE[ICD9: 466.0] Diagnosis: COUGH[ICD9: 786.2] [facility]na [facility] [address] [place] [address] CPT-4: 26947 05/09/20 11 OFFICE/OUTPATIENT VISIT EST Diagnosis: BRONCHITIS, ACUTE[ICD9: 466.0] Diagnosis: ASTHMA NOS[ICD9: 493.90] Diagnosis: Pleurisy[ICD9: 511.0] Jayna [facility] [address] [place] [address] CPT-4: 66649 05/02/2011 OFFICE/OUTPATIENT VISIT EST Diagnosis: COUGH[ICD9: 786.2] Jayna GREENBERGNDER DO [address] [phone] CPT-4: 52524 04/25/20 11 OFFICE/OUTPATIENT VISIT EST Diagnosis: COUGH[ICD9: 786.2] Diagnosis: SINUSITIS, ACUTE[ICD9: 461.9] Jayna GREENBERGNDER DO [address] [phone] CPT-4: 43491 04/04/2011 OFFICE/OUTPATIENT VISIT EST Diagnosis: HYPOTHYROIDISM[ICD9: 244.9] Diagnosis: Knee osteoarthritis[ICD9: 715.96] Jayna Dioniciomarialuisa IGLESIASAIRA GREENBERGNDER DO [address] [phone] CPT-4: 18502 03/01/2011 OFFICE/OUTPATIENT VISIT EST Jaynaparam GUTIERREZ Daniel GREENBERG NDER DO [address] [phone] CPT-4: 98802 01/04/2011 ([id number]) OFFICE/OUTPATIENT VISIT EST Jayna Vanessa NORRIS CANDACE [facility]Paige [facility] [address] [place] [phone] CPT-4: 91410 12/07/2010 ([id number]) OFFICE/OUTPATIENT VISIT EST Jayna PISANO CANDACE [facility] [address] [place] [phone] CPT-4: 43278 10/09/2010 ([id number]) OFFICE/OUTPATIENT VISIT EST Jayna MARIA S[facility] [address] [place] [address] CPT-4: 51468 08/07/2010 ([id number]) OFFICE/OUTPATIENT VISIT, EST Jayna COPELANDLINE S. [facility] [address] [place] [phone] CPT-4: 04596 06/06/2010 ([id number]) OFFICE/OUTPATIENT VISIT, EST Jayna COPELANDLINE S[facility] [address] [place] [phone] CPT-4: 53632 03/20/2010 ([id number]) OFFICE/OUTPATIENT VISIT, EST Jayna COPELANDLINE S. [facility] [address] [place] [phone] CPT-4: 95329 01/30/2010 ([id number]) OFFICE/OUTPATIENT VISIT, EST Jayna VILLARREAL QUELINE S[facility] [address] [place] [phone] CPT-4: 11374 01/09/2010 ([id number]) OFFICE/OUTPATIENT VISIT, EST Jayna COPELANDLINE S[facility] [address] [place] [phone] CPT-4: 35831 10/26/2009 ([id number]) OFFICE/OUTPATIENT VISIT, EST Lizzie Kelly JAYNA S. [facility]END[facility] DO [facility] [address] [place] [phone] CPT-4: 82300 10/18/19 10 (24660) OFFICE/OUTPATIENT VISIT, EST Jayna [facility] [address] [place] [phone] CPT-4: 34418 10/04/2009 (17155) OFFICE/OUTPATIENT VISIT, EST Jayna [facility] [address] [place] [phone] CPT-4: 92781 09/21/2009 Plan of Care Planned Activity Notes [...] 08/30/2022 Appointment: Marlene Staples WPtel: [phone] [facility] US FOLLOW UP 08/30/2022 Patient Education: Patient [...] F43.9 08/07/2022 Appointment: Jay[facility]essa [facility]el[facility] [phone] [facility] [facility] FOLLOW UP 08/07/2022 Visit Diagnosis Plan: [...] N30.00 06/29/2022 Appointment: Marlene Staples WPtel: [phone] [phone] ACUTE ILLNESS 06/29/2022 Patient Education: ciprofloxacin HCl- OptimizeRX Coupon [id number] Completed 06/29/2022 Visit Diagnosis Plan: Depression Discussion: Increase Wellbutrin XL to 300mg po qAM Fwup 2 mos ICD-9 : 311 ICD-10 : F32.A 05/28/2022 Visit Diagnosis Plan: Hypothyroidism Discussion: Labs discussed Decrease levothyroxine to 150mcg 6 days a week and repeat thyroid lab in 2mos ICD-9 : 244.9 ICD-10 : E03.9 05/28/2022 Appointment: Jayna Vanessa WPtel: [phone] [phone] US FOLLOW UP 05/28/2022 Visit [...] R73.9 05/10/2022 Appointment: Jayna Vanessa WPtel: [phone] [phone] US FOLLOW UP 05/10/2022 Visit Diagnosis Plan: Migraine, intractable Discussion : Toradol 30mg IM x1 given in clinic. Start Rizatriptan-- discussed on how to use and may repeat x1 dose 2 hours later. Restart propranolol for migraine prevention. Notify clinic if migraine not improving. ICD-9 : 346.91 ICD-10 : G43.919 04/18/2022 Appointment: Marlene Staples WPtel: [phone] [phone] US ACUTE ILLNESS 04/18/2022 Patient Education: propranolol- OptimizeRX Coupon [id number] Completed 04/18/2022 Appointment: Jayna Vanessa WPtel: [phone] [phone] US INJECTION 04/05/2022 Appointment: Jayna Vanessa WPtel: [phone] [phone] US CANCELED 03/21/2022 Visit Diagnosis Plan: Acute sinusitis Discussion: Pred nisone Notify if worsening persists ICD-9 : 461.9 ICD-10 : J01.90 02/15/2022 Visit Diagnosis Plan: Bilateral temporomandibular join t disorder Discussion: Ice and prednisone If worsening will check ESR ICD-9 : 524.60 ICD-10 : M26.603 02/15/2022 Visit Diagnosis Plan: Allergic rhinitis Discussion: Co ntinue jessienase, singulair, xyzal ICD-9 : 477.9 ICD-10 : J30.9 02/15/2022 Appointment: Jayna Vanessa WPtel: [address] [place], [place] [phone] ACUTE ILLNESS 02/15/2022 Patient Education: prednisone- OptimizeRX Coupon [id number] https://www.[employer]/samplemd/resources/getResource/61/92z27ou5-l301-3h66-dm Completed 02/15/2022 Visit Diagnosis Plan: Hypothyroidism, unspecified Disc ussion: Stable ICD-9 : 244.9 ICD-10 : E03.9 02/06/2022 Visit Diagnosis Plan: Encounter for [facility] adult medical examination without abnormal findings [...] J44.9 02/06/2022 Appointment: Jayna Vanessa WPtel: [phone] [phone] Annual Well Visit 02/06/2022 Care [...] G43.111 02/01/2022 Appointment: Latasha Anand WPtel: [address] [phone] ACUTE ILLNESS 02/01/2022 Patient Education: Patient [...] R19.7 11/29/2021 Appointment: Jayna Vanessa WPtel: [phone] [phone] FOLLOW UP 11/29/2021 Visit Diagnosis Plan: Diarrhea Discussion: C Diff nega tive Treat with diflucan and Restora-RX Fwup 1 week ICD-9 : 787.91 ICD-10 : R19.7 11/22/2021 Visit Diagnosis Plan: Post-viral cough syndrome Discus joaquín: Change albuterol to Breztri 2p BID Add singulair 10mg po q HS ICD-9 : 786.2 ICD-10 : R05.8 11/22/2021 Appointment: Jayna Vanessa WPtel: [phone] [phone] ACUTE ILLNESS 11/22/2021 Patient Education: Singulair- OptimizeRX Coupon [id number] https://www.Tricida/samplemd/resources/getResource/61/9y94gga9-5eic-9340-1e Completed 11/22/2021 Visit Diagnosis Plan: Diarrhea of presumed infectious origin Discussion: Will check for c-diff due to recent antibiotics and foul smelling diarrhea ICD-9 : 009.3 ICD-10 : R19.7 11/21/2021 Visit Diagnosis Plan: History of recent pneumonia Disc ussion: Check cbc, cmp, ESR, and cxr now ICD-9 : V12.61 ICD-10 : Z87.01 11/21/2021 Appointment: Latasha Anand WPtel: [facility] [place] [phone] ACUTE ILLNESS 11/21/2021 Patient Education: Patient Medication Summary Completed 11/21/2021 Visit Diagnosis Plan: Pneumonia Discussion: Finish all abx and continue albuterol Fwup next week ICD-9 : 486 ICD-10 : J18.9 11/09/2021 Visit Diagnosis Plan: Serous otitis media Discussion: Kenalog 40mg with Dexamethasone 2mg IM now ICD-9 : 381.4 ICD-10 : H65.90 11/09/2021 Appointment: Jayna Vanessa WPtel: [address] [place], [place] [phone] Hospital Follow Up 11/09/2021 Visit Diagnosis Plan: Pneumonia Discussion: Admit to h ospital ICD-9 : 486 ICD-10 : J18.9 10/31/2021 Appointment: Jayna Vanessa WPtel: [phone] [phone] US FOLLOW UP 10/31/2021 Visit Diagnosis Plan: Nausea [...] prn 10/30/2021 Appointment: Jayna Vanessa WPtel: [phone] [phone] US ACUTE ILLNESS 10/30/2021 Visit Diagnosis Plan: Cervicalgia Discussion: Had x-ra ys done Kenalog 40mg IM now Baclofen prn Mobic for 1 week Topical muscle rube Moist heat and stretches shown Has PT sessions scheduled next week so will add in therapy for neck ICD-9 : 723.1 ICD-10 : M54.2 09/05/2021 Appointment: Jayna Vanessa WPtel: [phone] [phone] ACUTE ILLNESS 09/05/2021 Visit Diagnosis Plan: Arthritis [...] Anand WPtel: [phone] [phone] US ACUTE ILLNESS 08/24/2021 Patient Education: Patient Medication Summary Completed 08/24/2021 Patient Education: prednisone- OptimizeRX Coupon [id number] Completed 08/24/2021 Visit Plan: Supportive care. Rest, [...] 07/04/2021 Appointment: Latasha Anand WPtel: [phone] [phone] US ACUTE ILLNESS 07/04/2021 Patient Education: Patient Medication Summary Completed 07/04/2021 Patient Education: Patient Medication Summary Completed 07/04/2021 Appointment: Latasha Anand WPtel: [phone] [phone] US NO SHOW 07/03/2021 Appointment: Latasha Anand WPtel: [phone] [phone] US patients issue resolved so moved to 's schedule for his hospital fwup (km) CANCELED 03/29/2021 Appointment: Jayna Vanessa WPtel: [phone] [phone] US INJECTION 03/29/2021 Visit Diagnosis [...] 02/08/2021 Appointment: Latasha Anand WPtel: [address] [facility] [place] ACUTE ILLNESS 02/08/2021 Patient Education: Patient Medication Summary Completed 02/08/2021 Visit Diagnosis Plan: Contact dermatitis Discussion: T opical TAC and prednisone Notify if persists or worsens ICD-9 : 692.9 ICD-10 : L25.9 01/19/2021 Appointment: Jayna Vanessa WPtel: [phone] [phone] ACUTE ILLNESS 01/19/2021 Patient Education: prednisone- OptimizeRX Coupon [id number] Completed 01/19/2021 Patient Education: triamcinolone acetonide- OptimizeRX Coupon [id number] Completed 01/19/2021 Visit Diagnosis Plan: Hypothyroidism, unspecified Disc ussion: Increase levothyroxine to 150mcg po daily and recheck TSH and free T4 in 2mos ICD-9 : 244.9 ICD-10 : E03.9 01/03/2021 Visit Diagnosis Plan: Essential (primary) hypertension Discussion: Stable ICD-9 : 401.9 ICD-10 : I10 01/03/2021 Visit Diagnosis Plan: Encounter for [facility] adult medical examination without abnormal findings [...] 01/03/2021 Patient Education: levothyroxine- OptimizeRX Coupon [id number] https://www.Tricida/sampleCrossTx/resources/getResource/61/9b914ij5-7tu1-5819-o6 Completed 01/03/2021 Visit Diagnosis Plan: COPD exacerbation Discussion: Sa mple of breztri given. Prednisone 40 mg x 5 days for exacerbation- increased cough, shortness of breath, and phlegm. Promethazine DM cough syrup sent d/t frequent hacking cough that interrupts sleep. F/U for no improvement or any concerns. ICD-9 : 491.21 ICD-10 : J44.1 11/29/2020 Appointment: Latasha Anand WPtel: [phone] [facility] ACUTE ILLNESS 11/29/2020 Patient Education: Patient Medication Summary Completed 11/29/2020 Patient Education: prednisone- OptimizeRX Coupon [id number] Completed 11/29/2020 Patient Education: promethazine-DM- OptimizeRX Coupon [id number] Completed 11/29/2020 Visit Diagnosis Plan: Sinusitis Discussion: Will start doxycycline (pcn allergy). Sinus rinses. Tylenol/nsaids for headache/pain. Return to clinicif not improving/concerns. ICD-9 : 473.9 ICD-10 : J32.9 09/29/2020 Appointment: Latasha Anand WPtel: [phone] [facility] ACUTE ILLNESS 09/29/2020 Patient Education: Patient Medication Summary Completed 09/29/2020 Patient Education: doxycycline hyclate- OptimizeRX Coupon [id number] Completed 09/29/2020 Visit Diagnosis Plan: Other seasonal allergic rhinitis Discussion: Will send Lalita-D to help with allergies and dry up secretions. Increase fluid intake. ICD-9 : 477.9 ICD-10 : J30.2 09/19/2020 Visit Diagnosis Plan: Chronic bronchitis Discussion: S ample of Trelegy inhaler given. ProAir inhaler refilled. F/u for no improvement/worsening or concerns. ICD-9 : 491.9 ICD-10 : J42 09/19/2020 Appointment: Louis Anandah WPtel: [phone] [phone] ACUTE ILLNESS 09/19/2020 Patient Education: Patient Medication Summary Completed 09/19/2020 Patient Education: ProAir HFA- OptimizeRX Coupon [id number] Completed 09/19/2020 Visit Diagnosis Plan: Right-sided tinnitus [...] H93.11 08/10/2020 Appointment: Jayna Vanessa WPtel: [phone] FOLLOW UP 08/10/2020 Patient Education: neomycin-polymyxin B-dexameth- Opti mizeRX Coupon [id number] https://www.T[employer]ida/[employer]/resources/getResource/61/xe121o39-o11e-9x64-mi Completed 08/10/2020 Visit Diagnosis Plan: Dysfunction of right eustachian tube Discussion: Naylay.nj video visit done Increase zyrtec to BID Increase flonase to BID Add prednisone To office at end of week to assess otoscope exam if persists ICD-9 : 381.81 ICD-10 : H69.81 08/01/2020 Appointment: Jayna Vanessa WPtel: [phone] [phone] TELEMEDICINE 08/01/2020 Patient Education: prednisone- OptimizeRX Coupon [id number] https://www.Tricida/[employer]/resources/getResource/61/uo3d62e9-6754-1c9q-47 Completed 08/01/2020 Visit Diagnosis Plan: Pyelonephritis Discussion: Hilary daniel all abx Push fluids Check lab and repeat UA in 5 days--CBC, CMP, ESR ICD-9 : 590.80 ICD-10 : N12 07/13/2020 Appointment: Jayna Vanessa WPtel: [phone] [phone] Hospital Follow Up 07/13/2020 Visit Diagnosis Plan: Acute gastroenteritis Discussion : Telephone visit completed Clear liquid diet next 24-48hrs Flagyl to cover for colitis/diverticulitis Zofran prn Notify or to ER if worsening ICD-9 : 558.9 ICD-10 : K52.9 07/05/2020 Appointment: Jayna Vanessa WPtel: [phone] [phone] TELEMEDICINE 07/05/2020 Patient Education: ondansetron HCl- OptimizeRX Coupon [id number] https://www.[employer]ida/[employer]/resources/getResource/61/n4n71wx0-3g2j-229r-2i Completed 07/05/2020 Visit Diagnosis Plan: Metabolic syndrome Discussion: U pdate CMP, HBa1c ICD-9 : 277.7 ICD-10 : E88.81 06/22/2020 Visit Diagnosis Plan: Duudn-9-sbebcgpmcfr deficiency D iscussion: Following with pulmonology ICD-9 [...] : I10 06/22/2020 Appointment: Jayna Vanessa WPtel: [phone] [phone] FOLLOW UP 06/22/2020 Visit Diagnosis Plan: Urinary tract infection Discussi on: Macrobid Diflucan Push water Notify if worsens ICD-9 : 599.0 ICD-10 : N39.0 05/17/2020 Appointment: Jayna Vanessa WPtel: [address] [place], [place] [phone] ACUTE ILLNESS 05/17/2020 Patient Education: fluconazole- OptimizeRX Coupon [phone] [id number] https://www.[employer]/resources/getResource/61/9p9xd2bt-q9i9-8t4v-6o Completed 05/17/2020 Visit Diagnosis Plan: Right pulmonary embolus Discussi on: Continue eliquis at 5mg po BID Has appointments pending with pulmonology and hematology Fwup after visits with both of these specialists ICD-9 : 415.19 ICD-10 : I26.99 03/14/2020 Appointment: Jayna Vanessa WPtel: [address] [place], [place] [address] [facility] 03/14/20 on cell -- home phone had busy signal Hospital Follow Up 03/14/2020 Appointment: Jayna Vanessa WPtel: [address] [place], [place] [address] I schedule patient by mistake ddo Scheduled [...] : R06.00 03/07/2020 Appointment: Jayna Vanessa WPtel: [address] [place], [place] [phone] ACUTE ILLNESS 03/07/2020 Care Plan: CT THORAX W/DYE LOINC : 36060 -6 Pending 03/07/2020 Appointment: Jayna Vanessa WPtel: [phone] [phone] NO SHOW - FORGIVEN 03/02/2020 Visit Diagnosis [...] severity of her symptoms. patient [place] near [place] so informed her to go [facility] for testing. call ofice with new or worsening symptoms, otherwise push fluids. ICD-9 : 465.9 ICD-10 : J06.9 02/11/2020 Appointment: Genesis Fern[facility]dez [address] [facility] 02/11/2020 Patient Education: ProAir HFA- OptimizeRX Coupon [id number] Completed 02/11/2020 Patient Education: Medrol (Isaiah)- OptimizeRX Coupon [id number] Completed 02/11/2020 Visit Diagnosis Plan: Hypothyroidism, unspecified [...] I10 12/21/2019 Visit Diagnosis Plan: Encounter for [facility] adult medical examination without abnormal findings Discussion: Mediterranean diet Combinati on of cardio and weight bearing exercise Lab discussed Last colonoscopy 3 years ago ICD-9 : V70.9 ICD-10 : Z00.00 12/21/2019 Appointment: Jayna Vanessa WPtel: [phone] [phone] Annual Well Visit 12/21/2019 Care Plan: Referral Order SNOMED-CT : [phone] Pending 12/21/2019 Visit Diagnosis Plan: Dermatitis Discussion: Doxy.me v ideo visit done Cover with Prednisone taper Use Zyrtec 10mg po q AM BID ICD-9 : 692.9 ICD-10 : L30.9 09/29/2019 Appointment: Jayna Vanessa WPtel: [address] [place], [place] [phone] TELEMEDICINE 09/29/2019 Patient Education: prednisone- OptimizeRX Coupon [phone] https://www.[employer]/resources/getResource/61/46c87u28-6o11-4y66-5y Completed 09/29/2019 Visit Diagnosis Plan: Bone spur [...] : N39.0 09/14/2019 Appointment: Jayna Vanessa WPtel: [address] [place], [place] [phone] TELEMEDICINE 09/14/2019 Appointment: Jayna Vanessa WPtel: [address] [place], [place] [phone] US LAB 09/11/2019 Appointment: Jayna Vanessa WPtel: [address] [place], [place] [phone] 09/09/2019 1210--per Ally patient was to only have 1 injection, reculture urine on 09/11/19 (km) CANCELED 09/09/2019 Appointment: Jayna Vanessa WPtel: [address] [place], [place] [phone] US INJECTION 09/08/2019 Appointment: Jayna Vanessa WPtel: [phone] US INJECTION 09/07/2019 Visit Diagnosis [...] ICD-10 : R35.0 09/02/2019 Appointment: Genesis Fernández [address] [place] [address] ACUTE ILLNESS 09/02/2019 Visit Diagnosis Plan: Sinusitis Discussion: instructed to start flonase daily and zyrtec daily. if no improvement next week, call clinic and may need further directions. instructed to use saline eye drops as needed to eyes to assist with dryness. ICD-9 : 473.9 ICD-10 : J32.9 07/09/2019 Appointment: Genesis Fernández [address] [place] [address] ACUTE ILLNESS 07/09/2019 Visit Diagnosis Plan: UTI (urinary tract infection) Di scussion: urine culture sent off. will start on macrobid due to symptoms. instructed to push fluids and chemo tomorrow with worsening symptoms. ICD-9 : 599.0 ICD-10 : N39.0 04/15/2019 Appointment: Jayna Vanessa WPtel: 230 [phone] US INJECTION 04/15/2019 Appointment: Genesis Fernández [address] [place] [address] ACUTE ILLNESS 04/15/2019 Visit Diagnosis Plan: Pain in right leg Discussion: ke nalog/dexa given in office. continue with flexeril prn. PT was ordered for patient due to chronic issues. call office with worsening symptoms and may need imaging. ICD-9 : 729.5 ICD-10 : M79.604 04/07/2019 Appointment: Genesis Fernández [address] [place] [address] ACUTE ILLNESS 04/07/2019 Visit Diagnosis Plan: Diverticulitis of large intestine without perforation or abscess without bleeding Discussion: Patient will call when she g ets home and verify which antibiotics she has left--needs at least another week on flagyl and thinks she only took 1 week on that ICD-9 : 562.11 ICD-10 : K57.32 03/25/2019 Appointment: Jayna Vanessa WPtel: [facility] [place] [phone] FOLLOW UP 03/25/2019 Visit Diagnosis Plan: Cystitis Discussion: Bactrim and culture urine ICD-9 : 595.9 ICD-10 : N30.90 03/18/2019 Visit Diagnosis Plan: Abdominal pain Discussion: Cover with flagyl for colitis Mobile diet To ER this weekend if worsening Fwup 1 week ICD-9 : 789.00 ICD-10 : R10.9 03/18/2019 Appointment: Jayna Vanessa WPtel: [facility] [address] ACUTE ILLNESS 03/18/2019 Visit Diagnosis Plan: [...] ICD-10 : R10.84 01/26/2019 Appointment: Genesis Fernández [address] [place] [address] ACUTE ILLNESS 01/26/2019 Appointment: Jayna Vanessa WPtel: [phone] [phone] US CANCELED 01/12/2019 Visit Diagnosis Plan: Mild intermittent asthma with (a cute) exacerbation Discussion: Kenalog 40mg IM now Prednisone stating tomorrow Start Doxycycline tonight Continue SVNs with duoneb q4hrs To ER this weekend if worsening Call Saturday on how doing ICD-9 : 466.0 ICD-10 : J45.21 01/08/2019 Appointment: Jayna Vanessa WPtel: [phone] [phone] FOLLOW UP 01/08/2019 Patient Education: prednisone- OptimizeRX Coupon [phone] https://www.Tricida/[employer]/resources/getResource/61/99782450-v5li-1367-53 Completed 01/08/2019 Visit Diagnosis Plan: Mild intermittent asthma with (a cute) exacerbation Discussion: Solumedrol 125mg IM SVN with duoneb given Continue albuterol q4hrs CXR now Recheck tomorrow ICD-9 : 466.0 ICD-10 : J45.21 01/06/2019 Appointment: Jayna Vanessa WPtel: [facility]8 [phone] ACUTE ILLNESS 01/06/2019 Visit Diagnosis Plan: Encounter [...] ICD-10 : N76.0 12/11/2018 Appointment: Genesis Fernández [address] [place] [address] Annual Well Visit 12/11/2018 Care Plan: RML ASSAY THYROID STIM HORMONE Pending 12/04/2018 Care Plan: RML ASSAY OF FREE THYROXINE Pe nding 12/04/2018 Care Plan: RML A1C HPLC LOINC : 47606-3 Pending 12/04/2018 Care Plan: RML LIPID PANEL LOINC : 70658 -1 Pending 12/04/2018 Care Plan: RML COMPREHEN METABOLIC PANEL LOINC : 36369-9 Pending 12/04/2018 Care Plan: QUEST CBC (INCLUDES DIFF/PLT) LOINC : 14920-1 Pending 12/04/2018 Visit Diagnosis Plan: Benign paroxysmal vertigo, bilat eral Discussion: Meclizine Vestibular Exercises To ER if worsens or develops neurological symptoms or will need CT scan if persists/worsens ICD-9 : 386.11 ICD-10 : H81.13 10/30/2018 Appointment: Jayna Vanessa WPtel: [address] [place], [place] [phone] ACUTE ILLNESS 10/30/2018 Patient Education: VESTIBULAR EXCERCISES Completed 10/30/2018 Patient Education: meclizine- OptimizeRX Coupon [id number] Completed 10/30/2018 Appointment: Jayna Vanessa WPtel: [facility] [place] [phone] [place] canceled due to huband going into [...] J20.9 10/07/2018 Visit Diagnosis Plan: Cough Discussion: Luis bae s- as needed for cough ICD-9 : 786.2 ICD-10 : R05 10/07/2018 Appointment: Stacey Feng [facility]0 [facility]6[address] ACUTE ILLNESS 10/07/2018 Patient Education: doxycycline hyclate- OptimizeRX [facility] [id number] https://www.Grab [employer].com/samplemd/resources/getResource/61/z585wjn3-q604-219z-08 Completed 10/07/2018 Care Plan: RML ASSAY OF [...] 733.90 ICD-10 : M85.80 06/23/2018 Appointment: Jayna Vanessatel: [address] [place], [place] [phone] FOLLOW UP 06/23/2018 Appointment: Jayna Vanessa WPtel: [address] [place] [address] ER Follow UP 01/27/2018 Visit Diagnosis Plan: Hypothyroidism, unspecified Disc ussion: Lab discussed Increase Levothyroxine to 175mcg daily then recheck level in 6 weeks Follow Up: 6 weeks ICD-9 : 244.9 ICD-10 : E03.9 01/16/2018 Visit Diagnosis Plan: Mixed hyperlipidemia Discussion: Defers statin meds ICD-9 : 272.4 ICD-10 : E78.2 01/16/2018 Appointment: Jayna Vanessa WPtel: [address] [place], [place] [phone] US FOLLOW UP 01/16/2018 Patient Education: Patient Medication Summary Completed 01/16/2018 Patient Education: Patient Medication Summary Completed 01/15/2018 Care Plan: RML COMPREHEN METABOLIC PANEL LOINC : 97406-5 Pending 01/15/2018 Care Plan: RML ASSAY THYROID STIM HORMONE Pending 01/15/2018 Care Plan: RML ASSAY OF FREE THYROXINE Pe nding 01/15/2018 Care Plan: RML LIPID PANEL LOINC : 54652 -1 Pending 01/15/2018 Care Plan: CBC Pending 01/15/2018 Care Plan: RML A1C HPLC LOINC : 29996-1 Pending 01/15/2018 Appointment: Jayna Vanessa WPtel: [address] [place], [place] [phone] US CANCELED 12/26/2017 Appointment: Jayna Vanessa WPtel: [address] [place] [address] US CANCELED 10/28/2017 Visit Diagnosis Plan: Cervicalgia Discussion: xray ord ered of cervical spine and right shoulder. 40 mg kenalog/15 mg toradol prescribed to assist with pain. medrol dose pack prescribed to start tomorrow. instructed patient that if she d evelops worsening pain or no improvement, call or rtc. ICD-9 : 723.1 ICD-10 : M54.2 10/16/2017 Appointment: Genesis Fernández [address] [place] [address] ACUTE ILLNESS 10/16/2017 Patient Education: Patient Medication Summary Completed 10/16/2017 Care Plan: X-RAY EXAM NECK SPINE 4/5VWS cervical LOINC : 80806-4 Pending 10/16/2017 Visit Diagnosis Plan: Headache Discussion: Stat CT of head Dilated eye exam ICD-9 : 784.0 ICD-10 : R51 09/12/2017 Visit Diagnosis Plan: Dizziness and giddiness Discussi on: Check CBC,TSH, Free T4 now ICD-9 : 780.4 ICD-10 : R42 09/12/2017 Appointment: Jayna Vanessatel: [address] [place], [place] [phone] ACUTE ILLNESS 09/12/2017 Patient Education: Patient Medication Summary Completed 09/12/2017 Care Plan: CT HEAD/BRAIN W/O DYE [facility] : 74410-7 Pending 09/12/2017 Visit Diagnosis Plan: Cough Discussion: discussed cxra y and sputum results with patient and how they are negative for bacteria. patient restarted on her PPI to cover possiblity of GERD causing cough. 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 rtc with any new or worsening symptoms but continue with inhaler and nebulizer treatments as needed. ICD-9 : 786.2 ICD-10 : R05 08/20/2017 Appointment: Genesis Fernández [address] [place] [address] FOLLOW UP 08/20/2017 Patient Education: Patient Medication Summary Completed 08/20/2017 Visit Diagnosis Plan: COUGH Discussion: Check stat CXR Check Sputum culture ICD-9 : 786.2 ICD-10 : R05 08/13/2017 Appointment: Jayna Vanessa WPtel: [address] [place], [place] [address] ACUTE ILLNESS 08/13/2017 Patient Education: Patient Medication [...] Fluids... 07/29/2017 Appointment: Jayna Vanessa WPtel: [address] [place], [place] [phone] ACUTE ILLNESS 07/29/2017 Patient Education: Patient Medication [...] ICD-10 : J09.X2 07/25/2017 Appointment: Genesis Fernández [address] [place] [address] ACUTE ILLNESS 07/25/2017 Patient Education: Patient Medication [...] : M25.50 06/10/2017 Appointment: Jayna Vanessa WPtel: [address] [place] [address] ACUTE ILLNESS 06/10/2017 Patient Education: Patient Medication Summary Completed 06/10/2017 Appointment: Jayna Vanessa WPtel: [address] [place], [place] [address] Does not need appointment CANCELED 2016 Appointment: Jayna Vanessa WPtel: [address] [address] [place], [place] [id number] US CANCELED 05/30/2017 Visit Diagnosis Plan: Acute bronchitis, unspecified Di scussion: prednisone, zpack and tessalon perles prescribed to assist with symptoms. call or RTC if no improvement. humidifier at night. hydrate well and rest. discussed side effects from prednisone including increased blood sugars and instructed to monitor. ICD-9 : 490 ICD-10 : J20.9 05/28/2017 Appointment: Genesis Fernández [address] ACUTE ILLNESS 05/28/2017 Patient Education: Patient Medication Summary Completed 05/28/2017 Visit Diagnosis Plan: Type 2 diabetes mellitus without complications Discussion: Continue current meds accuchecks daily ICD-9 : 250.00 ICD-10 : E11.9 04/04/2017 Visit Diagnosis Plan: Encounter for gene [facility] adult medical examination without abnormal findings Discussion: Flu and Pneumovax given Mamm ogram ordered Lab discussed ICD-9 : V70.9 ICD-10 : Z00.00 04/04/2017 Appointment: Jayna Vanessatel: [phone] [phone] Annual Well Visit 04/04/2017 Patient Education: Patient Medication Summary Completed 04/04/2017 Care Plan: MAMMOGRAM SCREENING LOINC : 2 6347-5 Pending 04/04/2017 Patient Education: Patient Medication Summary Completed 03/21/2017 Care Plan: RML COMPREHEN METABOLIC PANEL LOINC : 53793-7 Pending 03/21/2017 Care Plan: RML ASSAY THYROID STIM HORMONE Pending 03/21/2017 Care Plan: RML ASSAY OF FREE THYROXINE Pe nding 03/21/2017 Care Plan: CBC Pending 03/21/2017 Care Plan: RML A1C HPLC LOINC : 83982-2 Pending 03/21/2017 Visit Diagnosis Plan: Mixed hyperlipidemia Discussion: Continue current meds Follow Up: 6 months ICD-9 : 272.4 ICD-10 : E78.2 11/28/2016 Visit Diagnosis Plan: Hypothyroidism, unspecified Disc ussion: Continue current dose ICD-9 : 244.9 ICD-10 : E03.9 11/28/2016 Visit Diagnosis Plan: Fisdn-[id number]-[id number] deficiency D iscussion: Continue weekly injections ICD-9 : 273.4 ICD-10 : E88.01 11/28/2016 Visit Diagnosis Plan: Sebaceous cyst Discussion: Emily swann Discussed removal ICD-9 : 706.2 ICD-10 : L72.3 11/28/2016 Appointment: Jayna Vanessatel: [phone] [phone] 6/6 rang and rang on home phone and mobile confirmed~sl FOLLOW UP 11/28/2016 Patient Education: Patient Medication Summary Completed 11/28/2016 Patient Education: Patient Medication Summary Completed 11/20/2016 Referral: Tom Mcrael: [address] [facility] 440 [id number] [place] Referral Initiated 07/05/2016 Visit Plan: Start with CT abdomen/pelvis Will need EGD and Colonoscopy so will refer to Dr. Pina Obtain most recent lab results 06/05/2016 Appointment: Jayna Vanessa WPtel: [phone] [phone] ACUTE ILLNESS 06/05/2016 Patient Education: Patient Medication Summary Completed 06/05/2016 Care Plan: CT PELVIS W/O DYE LOINC : 361 08-9 Pending 06/05/2016 Care Plan: CT ABDOMEN W/O DYE LOINC : 36 103-0 Pending 06/05/2016 Care Plan: Referral Order SNOMED-CT : [id number] Pending 06/05/2016 Appointment: Jayna Vanessa WPtel: [phone] [phone] US INJECTION 05/01/2016 Patient Education: Patient Medication Summary Completed 05/01/2016 Patient Education: Patient Medication Summary Completed 04/26/2016 Care Plan: RML COMPREHEN METABOLIC PANEL LOINC : 33571-0 Pending 04/26/2016 Care Plan: RML ASSAY THYROID STIM HORMONE Pending 04/26/2016 Care Plan: RML ASSAY OF FREE THYROXINE Pe nding 04/26/2016 Care Plan: RML A1C HPLC LOINC : 70964-6 Pending 04/26/2016 Referral: Aditya Stone WPtel: [address] [place] [address] [id number] Arrival time is 10:00 Am~sl Appointment Confirme d 11/25/2015 Visit Plan: Had fasting lab done this AM Continue PT for right shoulder Continue current meds Referral to Dr. Temo Stone for incontinence 11/08/2015 Appointment: Jayna Vanessa WPtel: [phone] [phone] 11/06 confirmed-sp FOLLOW UP 11/08/2015 Patient Education: Patient Medication Summary Completed 11/08/2015 Appointment: Jayna Vanessa WPtel: [address] [place], [place] [phone] [place] 10/19 rescheduled ~sl RESCHEDULED 10/24/2015 Appointment: Jayna Vanessa WPtel: [address] [place], [place] [phone] 10/10rang and rang ~sl RESCHEDULED 6 Patient Education: Patient Medication Summary Completed 10/12/2015 Care Plan: RML COMPREHEN METABOLIC PANEL LOINC : 47555-9 Pending 10/12/2015 Care Plan: RML ASSAY THYROID STIM HORMONE Pending 10/12/2015 Care Plan: RML ASSAY OF FREE THYROXINE Pe nding 10/12/2015 Care Plan: RML LIPID PANEL LOINC : 94585 -1 Pending 10/12/2015 Care Plan: CBC Pending 10/12/2015 Care Plan: RML A1C HPLC LOINC : 06798-7 Pending 10/12/2015 Care Plan: VITAMIN D TOTAL (25 HYDROXY) P ending 10/12/2015 Appointment: Jayan Vanessa WPtel: [address] [place], [place] [phone] [place] CANCELED 09/22/2015 Visit Plan: Lab discussed Change thyroid med back to brand synthroid and recheck thyroid lab in os 07/19/2015 Appointment: Jayna Vanessa WPtel: [address] [place], [place] [phone] 07/18/15 appt confirmed cn FOLLOW UP 07/19 Patient Education: Patient Medication Summary Completed 07/19/2015 Patient Education: Patient Medication Summary Completed 07/12/2015 Visit Plan: Lab discussed Change synthro id to 150mcg all days but M, W, F will change to 175mcg Check Lab and fwup in 3mos Flu shot given 03/28/2015 Appointment: Jayna Vanessa WPtel: [address] [place], [place] [phone] [place] 03/25 rang for 1:40 seconds 03/28/ appt confirmed cn FOLLOW UP 03/28/2015 Patient Education: Patient Medication Summary Completed 03/28/2015 Patient Education: Patient Medication Summary Completed 03/21/2015 Visit Plan: Continuue fluoxetine at high er dose Increase synthroid to 150mcg as ordered Decrease propranolol to 20mg po BID Check thyroid lab and fwup in 2mos Prevnar 13 given 02/08/2015 Appointment: Jayna Vanessa WPtel: [address] [place], [place] [phone] FOLLOW UP 02/08/2015 Patient Education: Patient Medication Summary Completed 02/08/2015 Visit Plan: Check CBC, CMP, TSH, Free T4 , uric acid, lactate now Increase fluoxetine to 40mg daily Recheck in 1month Notify if worsening Culture urine 01/11/2015 Appointment: Jayna Vanessa WPtel: [address] [place], [place] [phone] ACUTE ILLNESS 01/11/2015 Patient Education: Patient Medication Summary Completed 01/11/2015 Visit Plan: Lab discussed Accuchecks lucian ly Medrol dose pack Rx for back brace 11/24/2014 Appointment: Jayna Vanessa WPtel: [address] [place], [place] [phone] 11/23 confirmed -mf FOLLOW UP 11/24/2014 Patient Education: Patient Medication Summary Completed 11/24/2014 Appointment: Galina Leos WPtel: [address] [place], [place] [phone] ER Follow UP 11/19/2014 Patient Education: Patient Medication Summary Completed 11/19/2014 Appointment: Conchita Capone WPtel: [address] [place] [address] ACUTE ILLNESS 10/27/2014 Patient Education: Patient Medication Summary Completed 10/27/2014 Patient Education: [facility] - Saving AutoInj - 18+ - Dynamic Portal ID Completed 10/27/2014 Appointment: Conchita Capone WPtel: [address] [place], [place] [phone] ACUTE ILLNESS 09/23/2014 Patient Education: Patient Medication Summary Completed 09/23/2014 Visit Plan: Lab discussed Continue curre nt meds 07/28/2014 Appointment: Jayna Vanessa WPtel: [address] [place], [place] [phone] 07/27 FOLLOW UP 07/28/2014 Patient Education: Patient Medication Summary Completed 07/28/2014 Patient Education: Patient Medication Summary Completed 07/21/2014 Patient Education: Patient Medication Summary Completed 04/27/2014 Appointment: Jayna Vanessa WPtel: [address] [place], [place] [phone] 03/29 FOLLOW UP 03/30/2014 Patient Education: Patient Medication Summary Completed 03/30/2014 Patient Education: [facility] - Saving AutoInj - 18+ - Dynamic Portal ID Completed 03/30/2014 Visit Plan: Lab discussed DC Vytorin Tri al of Lipitor 80mg q HS Continue Trilipix Check Lipids/CMP/thyroid and HbA1C in 4mos then fwup 11/24/2013 Appointment: Jayna Vanessa WPtel: [address] [place], [place] [address] FOLLOW UP 11/24/2013 Patient Education: Patient Medication Summary Completed 11/24/2013 Patient Education: [facility] - Saving AutoInj - 18+ - Dynamic Portal ID Completed 11/24/2013 Visit Plan: Lab discussed Daily accuchec ks Cont current meds 08/25/2013 Appointment: Jayna Vanessa WPtel: [address] [place], [place] [phone] 08/24 FOLLOW UP 08/25/2013 Patient Education: Patient Medication Summary Completed 08/25/2013 Appointment: Jayna Vanessa WPtel: [address] [place], [place] [phone] FOLLOW UP 08/05/2013 Visit Plan: Continue Wellbutrin/Fluoxeti ne Fasting lab and fwup in 2mos 06/29/2013 Appointment: Jayna Vanessa WPtel: [phone] 06/26 left message FOLLOW UP 06/29/2013 Patient Education: Patient Medication Summary Completed 06/29/2013 Visit Plan: Increase Wellbutrin to 300mg daily Add fluoxetine 20mg daily 05/26/2013 Appointment: Jayna Vanessa WPtel: [address] [place], [place] [phone] FOLLOW UP 05/26/2013 Patient Education: Patient Medication Summary Completed 05/26/2013 Visit Plan: OK to proceed with planned s ulder surgery next week Continue current meds Check fasting lab--CBC, CMP, TSH, free T4, HbA1C, Lipids, Vit D at end of this week prior to surgery 05/06/2013 Appointment: Jayna Vanessa WPtel: [address] [place], [place] [phone] FOLLOW UP 05/06/2013 Patient Education: Patient Medication Summary Completed 05/06/2013 Appointment: Jayna Vanessa WPtel: [address] [place], [place] [phone] ACUTE ILLNESS 04/23/2013 Patient Education: Patient Medication Summary Completed 04/23/2013 Patient Education: [facility] - Saving AutoInj - 18+ - Dynamic Portal ID Completed 04/23/2013 Visit Plan: Decrease Lasix to 20mg daily Leave potassium at 20meq daily Check Chem 7 in 1wk 03/31/2013 Appointment: Jayna Vanessa WPtel: [address] [place], [place] [phone] FOLLOW UP 03/31/2013 Patient Education: Patient Medication Summary Completed 03/31/2013 Appointment: Conchita Capone WPtel: [address] [place], [place] [phone] ACUTE ILLNESS 03/05/2013 Patient Education: Patient Medication Summary Completed 03/05/2013 Visit Plan: Lab discussed Continue curre nt meds Pt is going to start allergy injections Go for port placement to continue prolastin infusions 02/04/2013 Appointment: Jayna Vanessa WPtel: [address] [place], [place] [phone] ACUTE ILLNESS 02/04/2013 Patient Education: Patient Medication Summary Completed 02/04/2013 Visit Plan: 2-D ECHO discussed See Pulmo nology Pt states cough had went away with allergy meds and then has came back Continue allergy meds and add pepcid BID Discussed allergy testing 11/27/2012 Appointment: Jayna Vanessa WPtel: [phone] [phone] FOLLOW UP 11/27/2012 Patient Education: Patient Medication Summary Completed 11/27/2012 Visit Plan: PFTS discussed Proceed with 2-D ECHO and pulmonology evaluation Pt was concerned propranolol could be cause but discussed this is likely not culpri HOMERO was DCed in 2009, is on PPI, has seen ENT, will restart allergy meds--may need allergy testing 11/11/2012 Appointment: Jayna Vanessa WPtel: [address] [place], [place] [phone] FOLLOW UP 11/11/2012 Patient Education: Patient Medication Summary Completed 11/11/2012 Visit Plan: Hold metformin Check CMP, Li pids, TSH, Free T4, HbA1C Check PFTs 10/20/2012 Appointment: Jayna Vanessa WPtel: [address] [place], [place] [phone] 10/17 left message FOLLOW UP 10/20/2012 Patient Education: Patient Medication Summary Completed 10/20/2012 Appointment: Jayna Vanessa WPtel: [address] [place], [place] [phone] 10/13 FOLLOW UP 10/14/2012 Visit Plan: Discussed fluids and rest. W ill monitor for worsening symptoms/fever. Azithromycin, medrol dose pack and refil on cough syrup. Pt. will notify if symptoms worsen or persist. 09/03/2012 Appointment: Lizzie Kelly WPtel: [address] [facility] ACUTE ILLNESS 09/03/2012 Patient Education: Patient Medication Summary Completed 09/03/2012 Visit Plan: discussed that symptoms star edvin around Lion time. Will begin culturelle BID and monitor for fever or worsening symptoms. Fluid intake important. CBC, CMP, sed rate and stool studies. Order written for Mag lab. 07/23/2012 Appointment: Lizzie Kelly WPtel: [address] [place], [place] [phone] ACUTE ILLNESS 07/23/2012 Patient Education: Patient Medication Summary Completed 07/23/2012 Visit Plan: Increase Metformin to 1000mg po BID Accuchecks daily Continue rest of meds at current dose and low-fat, low-sugar diet with increased exercise Check fasting lab in 4mos Restart Nexium 05/20/2012 Appointment: Jayna Vanessa WPtel: [address] [place], [place] [phone] patient had bad night so missed 05/06 appt...left voicemail 05/19 FOLLOW UP 05/20/2012 Patient Education: Patient Medication Summary Completed 05/20/2012 Appointment: Jayna Vanessa WPtel: [address] [place], [place] [phone] patient had bad night so missed 05/06 appt time. cn FOLLOW UP 05/06/2012 Appointment: Galina Leos WPtel: [address] [place] [phone] ACUTE ILLNESS 04/04/2012 Patient Education: Patient Medication Summary Completed 04/04/2012 Visit Plan: Cryotherapy as above 02/20/2012 Appointment: Jayna Vanessa WPtel: [address] [place], [place] [phone] 02/18 OFFICE SURGERY 02/20/2012 Patient Education: Patient Medication Summary Completed 02/20/2012 Visit Plan: Increase Metfromin to 1000mg daily Continue all other current meds 01/02/2012 Appointment: Jayna Vanessa WPtel: [address] [place] [address] FOLLOW UP 01/02/2012 Patient Education: Patient Medication Summary Completed 01/02/2012 Appointment: Lizzie Kelly WPtel: [address] [place] [address] ACUTE ILLNESS 09/04/2011 Patient Education: Patient Medication Summary Completed 09/04/2011 Visit Plan: Finish Keflex Proceed with c olonoscopy Increase aspirin to 325mg daily for next 2wks Add Vimovo 20/500mg po Daily 08/14/2011 Appointment: Jayna Vanessa WPtel: [address] [place] [address] Follow Up 08/14/2011 Patient Education: Patient Medication Summary Completed 08/14/2011 Appointment: Lizzie Kelly WPtel: [address] [place] [address] ACUTE ILLNESS 07/31/2011 Patient Education: Patient Medication Summary Completed 07/31/2011 Visit Plan: Doxy and steroids. Codeine/g uiaf cough syrup. Pt. will monitor for worsening symptoms and notify if fever occurs. Encouraged rest and fluids. 07/25/2011 Appointment: Lizzie Kelly WPtel: [address] [place] [address] ACUTE ILLNESS 07/25/2011 Patient Education: Patient Medication Summary Completed 07/25/2011 Visit Plan: Check full lab in 3mos Radha nue with all current meds Continue PT for knee 07/12/2011 Appointment: Jayna Vanessa WPtel: [address] [place], [place] [address] FOLLOW UP 07/12/2011 Patient Education: Patient Medication Summary Completed 07/12/2011 Visit Plan: Continue symbicort for 2 mor e weeks 05/09/2011 Appointment: Jayna Vanessa WPtel: [address] [place] [phone] [place] [address] FOLLOW UP 05/09/2011 Patient Education: Patient Medication Summary Completed 05/09/2011 Appointment: Jayna Vanessa WPtel: [address] [place] [phone] [place] [address] ER Follow UP 05/02/2011 Patient Education: Patient Medication Summary Completed 05/02/2011 Visit Plan: Pt. has recently finished ro und of Cefdinir with no improvement. Chest x-ray, CBC, CMP and mycoplasma order given to pt. Pt. will start Doxycycline. 04/25/2011 Appointment: Lizzie Kelly WPtel: [address] [place] [address] FOLLOW UP 04/25/2011 Patient Education: Patient Medication Summary Completed 04/25/2011 Appointment: Lizzie Kelly WPtel: [address] [place] [address] ACUTE ILLNESS 04/04/2011 Patient Education: Patient Medication Summary Completed 04/04/2011 Appointment: Lizzie Kelly WPtel: [address] [place] [address] ACUTE ILLNESS 04/03/2011 Visit Plan: Decrease Synthroid to 150mcg daily Repeat TSH and Free T4 in 2mos Knee injection as above 03/01/2011 Appointment: Jayna Vanessa WPtel: [address] [place] [phone] [place] [address] 03/01/2011 Patient Education: Patient Medication Summary Completed 03/01/2011 Visit Plan: Increase Synthroid to 175mcg po daily Check TSH, Free T4 in 8wks Injection given to knee as above Continue Pt 01/04/2011 Appointment: Jayna Vanessa WPtel: [address] [place], [place] [phone] FOLLOW UP 01/04/2011 Patient Education: Patient Medication Summary Completed 01/04/2011 Visit Plan: Septra DS, Mupirocin topical . Pt. will observe wound and report worsening symptoms. 12/07/2010 Appointment: Lizzie Kelly WPtel: [address] [place], [place] [phone] ACUTE ILLNESS 12/07/2010 Patient Education: Patient Medication Summary Completed 12/07/2010 Visit Plan: Increase Synthroid to 150mcg po daily Add Metformin Diet and exercise discussed at length again Repeat thyroid US Add Vit D level Will see if polydipsia improves with metformin 10/09/2010 Appointment: Jayna Vanessa WPtel: [address] [place], [place] [phone] FOLLOW UP 10/09/2010 Patient Education: Patient Medication Summary Completed 10/09/2010 Visit Plan: Increase Synthroid to 125mcg daily Decrease Vit D 50,000 u three times a week Discussed HRT Proceed with sleep study Fwup pending sleep study results 08/07/2010 Appointment: Jayna Vanessa WPtel: [address] [place], [place] [phone] FOLLOW UP 08/07/2010 Patient Education: Patient Medication Summary Completed 08/07/2010 Visit Plan: Decrease Synthroid to 100mcg QD Check thyroid lab in 2mos Check estradiol levels in 2mos--discussed HRT Increase Vit D 50,000u to 1 daily M-F 06/06/2010 Appointment: Jayna Vanessa WPtel: [address] [place], [place] [phone] ACUTE ILLNESS 06/06/2010 Patient Education: Patient Medication Summary Completed 06/06/2010 Visit Plan: Injections to knees as above 04/12/2010 Appointment: Jayna Vanessa WPtel: [address] [place], [place] [phone] OFFICE SURGERY 04/12/2010 Patient Education: Patient Medication Summary Completed 04/12/2010 Visit Plan: Decrease Synthroid to 175mcg QD Check lab in 2mos Change daily Vit D to weekly 03/20/2010 Appointment: Jayna Vanessa WPtel: [address] [place], [place] [phone] ESTABLISHED PATIENT 03/20/2010 Patient Education: Patient Medication Summary Completed 03/20/2010 Appointment: Jayna Vanessa WPtel: [phone] [phone] ACUTE ILLNESS 01/30/2010 Patient Education: Patient Medication Summary Completed 01/30/2010 Appointment: Jayna Vanessa WPtel: [phone] [phone] ACUTE ILLNESS 01/09/2010 Patient Education: Patient Medication Summary Completed 01/09/2010 Appointment: Jayna Vanessa WPtel: [phone] [phone] BP CHECK 11/07/2009 Patient Education: Patient Medication Summary Completed 11/07/2009 Appointment: Jayna Vanessa WPtel: [phone] [phone] OFFICE SURGERY 10/26/2009 Patient Education: Patient Medication Summary Completed 10/26/2009 Appointment: Lizzie Kelly WPtel: [address] [place], [place] [phone] OFFICE SURGERY 10/17/2009 Patient Education: Patient Medication [...] up appnt. 10/04/2009 Appointment: Lizzie Kelly WPtel: [address] [place], [place] [phone] ACUTE ILLNESS 10/04/2009 Patient Education: Patient Medication Summary Completed 10/04/2009 Visit Plan: E-scribed refils. Pt. report s that she normally has lab work drawn and orders are given (faxed) to her normal lab facility by Patricia. Pt. states her migraine headaches have abated for now and that she is going to see her migraine doctor in [place] in the near future(Dr Cook) Pt will seek re-eval as necessary for acute issues. 09/21/2009 Appointment: Lizzie Kelly WPtel: [address] [facility] [place] CHECK UP 09/21/2009 Patient Education: Patient Medication Summary Completed 09/21/2009 Appointment: Lizzie Kelly WPtel: [address] [facility] [place] CHECK UP 09/20/2009 Appointment: Lizzie Kelly WPtel: [address] [facility] [place] FOLLOW UP 09/19/2009 Referral: Alf Lang WPtel: [address] [place] [address] [place] Referral Appointment Requested Referral: Singh Pina WPtel: [address] [facility] [place] Referral Appointment Requested Referral: Aditya Stone WPtel: [address] [facility] [address] [id number] [place] Referral Appointment Requested Instructions Comment Date [...] brand synthroid and recheck thyroid lab in [facility] 07/19/2015 . Lab discussed Change synthroid to 150mcg all days but M, W, F will change to 175mcg Check Lab and fwup in [facility] Flu shot given 03/28/2015 . Continuue fluoxetine [...] 09/03/2012 . discussed that symptoms started around [place] time. Will begin culturelle BID and monitor [...] . E-scribed refils. Pt. reports that john new normally has lab work drawn and orders are given (faxed) to her normal lab facility by Patricia. Pt. states her migraine headaches have abated for now and that she is going to see her migraine doctor in [place] in the near future(Dr Cook) Pt will [...]
--- OUTSIDE RECORDS SUMMARY | 2022-09-10 17:04 | XMS REPORT | CCD ---
Author Author Marcella Vanessa D.O. 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 Role Phone Jayna Vanessa D.O., PP Unavailable CCM Unavailable Summary Purpose Interface Exchange Insurance Providers Payer name Policy type / Coverage type Covered libertarian ID Effective Begin Date Effective End Date AETNA Commercial Insurance [id number] Unknown Commercial Insurance [id number] Unknown Family history Side Diagnosis Age At Onset Heart disease Unknown Diabetes Unknown Sister Diagnosis Age At Onset Diabetes Unknown Brother Diagnosis Age At Onset Diabetes Unknown Mother Diagnosis Age At Onset Heart disease Unknown Father Diagnosis Age At Onset Heart disease Unknown Social History Social History Element Codes Description Effective Dates Tobacco history SNOMED CT: 038307037 Never smoker 04/04/2011 Marital status Unknown 09/21/2009 [...] gastroenteritis ICD-10: K52.9 ICD-9: 558.9 07/05/2020 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 11/28/2016 Active [...] ANXIETY STATE NOS ICD-9: 300.00 03/05/2013 Active Qrigw-9-lnpdzdpuzxq 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 02/04/2013 A ctive DYSPNEA [...] Fill Instructions Macrobid 100 mg capsule RxNorm: 842217 Take 1 Capsule(s) Oral t wo times a day 09/05/2022 09/11/2022 Active bupropion HCl XL 300 mg 24 hr tablet, extended release RxNor m: 868317 TAKE 1 Tablet BY MOUTH DAILY IN THE MORNING (replaces 150mg DOSE) 08/29/2022 02/24/2023 Active levothyroxine 150 mcg tablet RxNorm: 706163 TAKE ONE TA BLET BY MOUTH EVERY IN THE MORNING 08/29/2022 02/24/2023 Active ciprofloxacin 250 mg tablet RxNorm: 350251 Take 1 Tablet(s) Ora l Q12H 06/29/2022 07/03/2022 Inactive levothyroxine 150 mcg tablet RxNorm: 057541 Take 1 Tablet(s) Or al QAM 06/03/2022 06/03/2022 Inactive Wellbutrin XL 300 mg 24 hr tablet, extended release RxNorm: 940142 Take 1 Tablet(s) Oral QAM replaces 150mg dose 05/28/2022 05/28/2022 Inactive Xyzal 5 mg tablet RxNorm: 271546 Take 1 Tablet(s) Oral QPM 05/10/2010/06/2022 Active Claritin 10 mg tablet RxNorm: 367139 Take 1 Tablet(s) Oral QAM 04/2409/06/2022 Active Flonase Allergy Relief 50 mcg/actuation nasal spray,suspensi on RxNorm: 2004878 Take 1 [place] Nasal two times a day 05/10/2022 06/08/2022 Inactive Wellbutrin XL 150 mg 24 hr tablet, extended release RxNorm: 857775 Take 1 Tablet(s) Oral QAM 05/10/2022 05/27/2022 Inactive sumatriptan 100 mg tablet RxNorm: 247718 1 Tablet(s) Or al after onset of migraine; may repeat after 2 hours if headache returns, not to exceed 200mg in 24hrs replaces rizatriptan 04/19/2022 04/19/2022 Inactive sumatriptan 100 mg tablet RxNorm: 105299 1 Tablet(s) Or al after onset of migraine; may repeat after 2 hours if headache returns, not to exceed 200mg in 24hrs replaces rizatriptan 04/19/2022 04/19/2022 Inactive propranolol 20 mg tablet RxNorm: 396125 TAKE 1 TABLET BY MOUTH TWICE DAILY 04/18/2022 10/14/2022 Active rizatriptan 10 mg disintegrating tablet RxNorm: 659915 Take 1 Tablet(s) Oral on top of tongue, allow to dissolve then swallow once, may repeat every 2 hrs; max 30 mg/24hrs 04/18/2022 04/18/2022 Inactive prednisone 20 mg tablet RxNorm: 764388 Take 1 Tablet(s) Oral tw o times a day 02/15/2022 02/21/2022 Inactive Nurtec ODT 75 mg disintegrating tablet RxNorm: 0550449 T ary 1 Tablet(s) Oral per 24 hours as needed for migraine 02/09/2022 02/09/2022 Inactive Nurtec ODT 75 mg disintegrating tablet RxNorm: 0975814 T ary 1 Tablet(s) Oral per 24 hours as needed for migraine 02/09/2022 02/09/2022 Inactive fluticasone propionate 50 mcg/actuation nasal spray,suspensi on RxNorm: 3190426 SPRAY ONE SPRAY IN EACH NOSTRIL TWICE DAILY NEEDED 02/05/20222021 Inactive levothyroxine 150 mcg tablet RxNorm: 698994 Take 1 Tablet(s) Or al QAM 02/04/2022 02/04/2022 Inactive albuterol sulfate HFA 90 mcg/actuation aerosol inhaler RxNor m: 5747767 Inhale 2 Puff(s) Oral Q4H as needed 01/05/2022 04/04/2022 Inactive pantoprazole 40 mg tablet,delayed release RxNorm: 831130 Take 1 Tablet(s) Oral QD 01/04/2022 07/02/2022 Inactive propranolol 20 mg tablet RxNorm: 563380 TAKE 1 TABLET BY MOUTH TWICE DAILY 01/04/2022 04/17/2022 Inactive levothyroxine 150 mcg tablet RxNorm: 902514 Take 1 Tablet(s) Or al QAM 12/05/2021 12/05/2021 Inactive metronidazole 500 mg tablet RxNorm: 277416 Take 1 Table t(s) Oral two times a day 11/29/2021 12/05/2021 Inactive Singulair 10 mg tablet RxNorm: 692291 Take 1 Tablet(s) Oral QPM 06/202105/09/2022 Inactive Diflucan 100 mg tablet RxNorm: 313834 Take 1 Tablet(s) Oral QD 06/202111/28/2021 Inactive pantoprazole 40 mg tablet,delayed release RxNorm: 108482 Take 1 Tablet(s) Oral QD 11/06/2021 11/06/2021 Inactive fluticasone propionate 50 mcg/actuation nasal spray,suspensi on RxNorm: 5162478 SPRAY ONE SPRAY IN EACH NOSTRIL TWICE DAILY NEEDED 11/03/20212021 Inactive scopolamine 1 mg over 3 days transdermal patch RxNorm: 28412 2 Apply 1 Unit Dose Transdermal Q72H behind ear 10/30/2021 02/05/2022 Inactive albuterol sulfate HFA 90 mcg/actuation aerosol inhaler RxNor m: 8900392 Inhale 2 Puff(s) Oral Q4H as needed 10/05/2021 11/24/2021 Inactive pantoprazole 40 mg tablet,delayed release RxNorm: 643507 Take 1 Tablet(s) Oral QD 10/05/2021 10/05/2021 Inactive meloxicam 7.5 mg tablet RxNorm: 515091 Take 1 Tablet(s) Oral QD for pain 09/05/2021 09/11/2021 Inactive baclofen 10 mg tablet RxNorm: 555569 Take 0.5-1 Tablet( s) Oral three times per week as needed for muscle spasm 09/05/2021 02/05/2022 Inactive prednisone 20 mg tablet RxNorm: 467349 Take 1 Tablet(s) Oral QD 08/202108/28/2021 Inactive pantoprazole 40 mg tablet,delayed release RxNorm: 676919 Take 1 Tablet(s) Oral QD 07/07/2021 09/04/2021 Inactive fluticasone propionate 50 mcg/actuation nasal spray,suspensi on RxNorm: 8204249 Take 1 [place] Nasal two times a day in each nostrilas needed 07/04/2021 10/01/2021 Inactive Decadron 6 mg tablet RxNorm: 858664 Take 1 Tablet(s) Oral QD 202107/08/2021 Inactive albuterol sulfate HFA 90 mcg/actuation aerosol inhaler RxNor m: 4076962 Inhale 2 Puff(s) Oral Q4H as needed 06/08/2021 09/05/2021 Inactive propranolol 20 mg tablet RxNorm: 246216 TAKE 1 TABLET BY MOUTH TWICE DAILY 06/08/2021 06/08/2021 Inactive pantoprazole 40 mg tablet,delayed release RxNorm: 640627 Take 1 Tablet(s) Oral QD 04/09/2021 06/07/2021 Inactive ProAir HFA 90 mcg/actuation aerosol inhaler RxNorm: 551372 2 Puff(s) Inhalation Q4H as needed 03/13/2021 03/13/2021 Inactive citalopram 10 mg tablet RxNorm: 108201 1 Tablet(s) Oral two antonio es a day 03/13/2021 02/05/2022 Inactive levothyroxine 150 mcg tablet RxNorm: 887083 TAKE 1 Tabl et BY MOUTH EVERY MORNING (REPLACES 137 MCG DOSE) 03/09/2021 03/09/2021 Inactive pantoprazole 40 mg tablet,delayed release RxNorm: 882994 Take 1 Tablet(s) Oral QD 02/08/2021 04/08/2021 Inactive triamcinolone acetonide 0.1 % topical cream RxNorm: 8627705 Take Application Topical two times a day to arm rash 01/19/2021 01/19/2021 Inactive prednisone 20 mg tablet RxNorm: 368989 Take 1 Tablet(s) Oral QD 01/23/2021 Inactive levothyroxine 150 mcg tablet RxNorm: 135722 Take 1 Tabl et(s) Oral QAM replaces 137mcg dose 01/03/2021 01/03/2021 Inactive prednisone 20 mg tablet RxNorm: 889090 Take 2 Tablet(s) Oral QD 01/202112/03/2020 Inactive promethazine-DM 6.25 mg-15 mg/5 mL oral syrup RxNorm: 504235 Take 5 Milliliter(s) Oral Every 6 hours as needed, not to exceed 30 mL in 24 hours 11/29/2020 12/03/2020 Inactive doxycycline hyclate 100 mg capsule RxNorm: 3190513 1 Cap kimi(s) Oral two times a day 09/29/2020 10/05/2020 Inactive Lalita-D 12 Hour 60 mg-120 mg tablet,extended release RxNor m: 650700 1 Tablet(s) Oral QD 09/19/2020 10/03/2020 Inactive ProAir HFA 90 mcg/actuation aerosol inhaler RxNorm: 544533 2 Inhalation Q4H as needed 09/19/2020 09/19/2020 Inactive propranolol 20 mg tablet RxNorm: 365857 TAKE 1 TABLET BY MOUTH TWICE DAILY 09/15/2020 09/15/2020 Inactive pantoprazole 40 mg tablet,delayed release RxNorm: 130429 1 Tabl et(s) Oral QD 09/09/2020 09/08/2020 Inactive pantoprazole 40 mg tablet,delayed release RxNorm: 484865 1 Tabl et(s) Oral QD 09/09/2020 11/07/2020 Inactive propranolol 20 mg tablet RxNorm: 511237 TAKE 1 TABLET BY MOUTH TWICE DAILY 08/24/2020 09/09/2020 Inactive levothyroxine 137 mcg tablet RxNorm: 710276 1 Tablet(s) Oral QD 08/202001/02/2021 Inactive uzqcmtba-csqxkeifd-gbyfgcxk 3.5 mg/mL-10,000 unit/mL-0 .1% eye drops RxNorm: 134036 4 Drop(s) Otic three times a day 08/10/2020 02/05/2022 Inactive prednisone 20 mg tablet RxNorm: 467120 1 Tablet(s) Oral two antonio es a day 08/01/2020 08/08/2020 Inactive pantoprazole 40 mg tablet,delayed release RxNorm: 302246 1 Tabl et(s) Oral QD 07/13/2020 09/08/2020 Inactive ondansetron HCl 4 mg tablet RxNorm: 107783 1 Tablet(s) Oral Q4H as needed for nausea 07/13/2020 05/09/2022 Inactive levothyroxine 137 mcg tablet RxNorm: 085379 1 Tablet(s) Oral QD 08/23/2020 Inactive pantoprazole 40 mg tablet,delayed release RxNorm: 920762 1 Tabl et(s) Oral QD 07/13/2020 07/12/2020 Inactive ondansetron HCl 4 mg tablet RxNorm: 665775 1 Tablet(s) Oral Q4H as needed for nausea 07/05/2020 07/12/2020 Inactive Flagyl 500 mg tablet RxNorm: 625823 1 Tablet(s) Oral three time s a day 07/05/2020 07/12/2020 Inactive Fish Oil 1,000 mg (120 mg-180 mg) capsule RxNorm: 1 Caps ule(s) Oral QD 06/23/2020 09/18/2020 Inactive rosuvastatin 10 mg tablet RxNorm: 032159 1 Tablet(s) Oral MWF 06/2306/22/2020 Inactive rosuvastatin 10 mg tablet RxNorm: 427420 1 Tablet(s) Oral MWF 06/2302/05/2022 Inactive fluconazole 100 mg tablet RxNorm: 069523 1 Tablet(s) Oral QOD 05/1706/21/2020 Inactive Macrobid 100 mg capsule RxNorm: 436454 1 Capsule(s) Oral two ti mes a day 05/17/2020 05/24/2020 Inactive levothyroxine 137 mcg tablet RxNorm: 118764 TAKE 1 TABLET BY [facility] ONCE DAILY 05/16/2020 07/12/2020 Inactive Eliquis 5 mg tablet RxNorm: 3373469 1 Tablet(s) Oral two times a da y 04/25/2020 02/05/2022 Inactive propranolol 20 mg tablet RxNorm: 049216 TAKE 1 TABLET BY MOUTH TWICE DAILY 04/25/2020 08/23/2020 Inactive doxycycline hyclate 100 mg capsule RxNorm: 8258513 1 Cap kimi(s) Oral two times a day 03/24/2020 03/31/2020 Inactive doxycycline hyclate 100 mg capsule RxNorm: 3603991 1 Cap kimi(s) Oral two times a day 03/24/2020 03/23/2020 Inactive propranolol 20 mg tablet RxNorm: 835524 TAKE 1 TABLET BY MOUTH TWICE DAILY 03/15/2020 04/13/2020 Inactive Eliquis 5 mg tablet RxNorm: 2336161 1 Tablet(s) Oral two times a da y 03/14/2020 04/24/2020 Inactive Eliquis 5 mg tablet RxNorm: 5108681 1 Tablet(s) Oral two times a da y 03/14/2020 03/13/2020 Inactive levofloxacin 500 mg tablet RxNorm: 424640 1 Tablet(s) Oral QD 02/1802/26/2020 Inactive levofloxacin 500 mg tablet RxNorm: 665036 1 Tablet(s) Oral QD 02/1802/18/2020 Inactive Tessalon Perles 100 mg capsule RxNorm: 025410 1 Capsule (s) Oral three times a day as needed 02/16/2020 02/25/2020 Inactive levothyroxine 137 mcg tablet RxNorm: 152079 TAKE 1 TABLET BY [facility] ONCE DAILY 02/15/2020 03/15/2020 Inactive ProAir HFA 90 mcg/actuation aerosol inhaler RxNorm: 765519 2 Inhalation Q4H as needed 02/11/2020 09/18/2020 Inactive Medrol (Isaiah) 4 mg tablets in a dose pack RxNorm: 986294 Tablet( s) Oral 02/11/2020 02/11/2020 Inactive levothyroxine 137 mcg tablet RxNorm: 067979 TAKE 1 TABLET BY [facility] ONCE DAILY 12/16/2019 01/14/2020 Inactive propranolol 20 mg tablet RxNorm: 910935 TAKE 1 TABLET BY MOUTH TWICE DAILY 12/16/2019 01/14/2020 Inactive levothyroxine 137 mcg tablet RxNorm: 680657 TAKE 1 TABLET BY [facility] ONCE DAILY 10/16/2019 11/14/2019 Inactive prednisone 20 mg tablet RxNorm: 339611 1 Tablet(s) Oral two times a day for rash/hives 09/29/2019 10/04/2019 Inactive Probiotic 10 billion cell capsule RxNorm: 6856728 1 Capsule(s) O ral QD 09/14/2019 02/10/2020 Inactive Bactrim DS 800 mg-160 mg tablet RxNorm: 691939 1 Tablet(s) Oral two times a day 09/14/2019 09/13/2019 Inactive citalopram 10 mg tablet RxNorm: 127269 1 Tablet(s) Oral two antonio es a day 09/14/2019 12/20/2019 Inactive hydroxychloroquine 200 mg tablet RxNorm: 187711 1 Table t(s) Oral two times a day 09/14/2019 02/05/2022 Inactive Bactrim DS 800 mg-160 mg tablet RxNorm: 719892 1 Tablet(s) Oral two times a day 09/14/2019 09/24/2019 Inactive Cipro 250 mg tablet RxNorm: 375047 1 Tablet(s) Oral two times a day 09/02/2019 09/08/2019 Inactive levothyroxine 137 mcg tablet RxNorm: 952266 1 Tablet(s) Oral QD 10/10/2019 Inactive levothyroxine 137 mcg tablet RxNorm: 800387 1 Tablet(s) Oral QD 08/11/2019 Inactive propranolol 20 mg tablet RxNorm: 400312 TAKE 1 TABLET BY MOUTH TWICE DAILY 06/18/2019 12/14/2019 Inactive 06/18/2019 11:09:41 AM Cipro 250 mg tablet RxNorm: 676999 1 Tablet(s) Oral two times a day 04/17/2019 04/16/2019 Inactive Cipro 250 mg tablet RxNorm: 816019 1 Tablet(s) Oral two times a day 04/17/2019 04/24/2019 Inactive Macrobid 100 mg capsule RxNorm: 826382 1 Capsule(s) Oral two ti mes a day 04/15/2019 04/16/2019 Inactive metronidazole 500 mg tablet RxNorm: 098973 1 Tablet(s) Oral thr ee times a day 03/18/2019 03/28/2019 Inactive Bactrim DS 800 mg-160 mg tablet RxNorm: 968462 1 Tablet(s) Oral two times a day 03/18/2019 03/18/2019 Inactive Cipro 250 mg tablet RxNorm: 715373 1 Tablet(s) PO BID 01/26/201901/22 Inactive Flagyl 500 mg tablet RxNorm: 513149 1 Tablet(s) PO TID 01/26/201904/2019 Inactive prednisone 20 mg tablet RxNorm: 455280 1 Tablet(s) PO B ID for 4 days then 1 po daily for 4 days 01/08/2019 03/17/2019 Inactive doxycycline hyclate 100 mg capsule RxNorm: 2919231 1 Capsule(s) PO BID 01/08/2019 01/14/2019 Inactive doxycycline hyclate 100 mg capsule RxNorm: 6416316 1 Capsule(s) PO BID 01/08/2019 01/07/2019 Inactive propranolol 20 mg tablet RxNorm: 266490 1 Tablet(s) PO BID 12/24/1906/17/2019 Inactive Bactrim DS 800 mg-160 mg tablet RxNorm: 251899 1 Tablet (s) PO BID repeat urine culture 48 hours after antibiotics completed. 12/15/2018 12/14/2018 In active Bactrim DS 800 mg-160 mg tablet RxNorm: 781922 1 Tablet (s) PO BID repeat urine culture 48 hours after antibiotics completed. 12/15/2018 12/19/2018 In active levothyroxine 137 mcg tablet RxNorm: 889304 1 Tablet(s) PO QD 12/0906/06/2019 Inactive meclizine 25 mg tablet RxNorm: 630342 1 Tablet(s) PO TID for di zziness 10/30/2018 11/08/2018 Inactive doxycycline hyclate 100 mg tablet RxNorm: 0634926 1 Tablet(s) PO BI D 10/07/2018 10/16/2018 Inactive albuterol sulfate HFA 90 mcg/actuation aerosol inhaler RxNor m: 379495 2 Puff(s) INH Q4H as needed 10/07/2018 02/10/2020 Inactive chlorpheniramine 4 mg tablet RxNorm: 9267620 1 Tablet(s) PO QHS for allergies 10/07/2018 03/17/2019 Inactive Tessalon 200 mg capsule RxNorm: 167521 1 Capsule(s) PO TID 10/08/1910/26/2018 Inactive doxycycline hyclate 100 mg tablet RxNorm: 3711383 1 Tablet(s) PO BI D 10/07/2018 10/06/2018 Inactive Tessalon 200 mg capsule RxNorm: 393740 1 Capsule(s) PO TID 10/08/1910/06/2018 Inactive levothyroxine 137 mcg tablet RxNorm: 445374 1 Tablet(s) PO QD 08/0512/02/2018 Inactive propranolol 20 mg tablet RxNorm: 066528 1 Tablet(s) PO BID 06/23/2012/19/2018 Inactive chlorpheniramine 4 mg tablet RxNorm: 3649972 1 Tablet(s) PO QHS for allergies 06/23/2018 08/21/2018 Inactive levothyroxine 137 mcg tablet RxNorm: 630866 1 Tablet(s) PO QD 06/0308/01/2018 Inactive levothyroxine 137 mcg tablet RxNorm: 005476 1 Tablet(s) PO QD 06/0306/02/2018 Inactive Synthroid 150 mcg tablet RxNorm: 550884 1 Tablet(s) PO QD 04/03/2018 06/22/2018 Inactive Synthroid 150 mcg tablet RxNorm: 187667 1 Tablet(s) PO QD 04/03/2018 04/02/2018 Inactive propranolol 20 mg tablet RxNorm: 116699 1 Tablet(s) PO BID 03/17/20 18 06/14/2018 Inactive propranolol 20 mg tablet RxNorm: 304131 1 Tablet(s) PO BID 03/17/20 18 06/21/2020 Inactive Lancets,Ultra Thin RxNorm: Miscellaneous Use to test blood sugar daily and as needed (Dx: E11.65) 02/28/2018 05/09/2022 Inactive Contour Test Strips RxNorm: Miscellaneous Test b lood sugar daily and as needed (Dx: E11.65) 02/28/2018 05/09/2022 Inactive Contour Meter RxNorm: 1 Miscellaneous DX: E11.65 02/27/20182021 Inactive DX: E11.65 Synthroid 175 mcg tablet RxNorm: 931279 1 Tablet(s) PO QD 01/28/2018 04/02/2018 Inactive Synthroid 175 mcg tablet RxNorm: 344426 1 Tablet(s) PO QD 01/16/2018 04/02/2018 Inactive Medrol (Isaiah) 4 mg tablets in a dose pack RxNorm: 391320 Tablet(s) P O 10/16/2017 01/15/2018 Inactive cyclobenzaprine 7.5 mg tablet RxNorm: 676751 1/2-1 Tablet(s) PO TID as needed 10/16/2017 06/22/2018 Inactive pantoprazole 40 mg tablet,delayed release RxNorm: 419819 1 Tabl et(s) PO QD 08/21/2017 06/22/2018 Inactive Nexium 40 mg capsule,delayed release RxNorm: 804442 1 Capsule(s ) PO QD 08/20/2017 08/20/2017 Inactive doxycycline hyclate 100 mg capsule RxNorm: 1907412 1 Capsule(s) PO BID 08/13/2017 08/12/2017 Inactive doxycycline hyclate 100 mg capsule RxNorm: 4790576 1 Capsule(s) PO BID 08/13/2017 08/19/2017 Inactive Tessalon Perles 100 mg capsule RxNorm: 634597 1 Capsule(s) PO T ID as needed 07/29/2017 08/07/2017 Inactive prednisone 20 mg tablet RxNorm: 212932 1 Tablet(s) PO BID 07/25/2017 07/27/2017 Inactive albuterol sulfate HFA 90 mcg/actuation aerosol inhaler RxNor m: 475543 2 Puff(s) INH Q4H as needed 07/25/2017 10/06/2018 Inactive doxycycline hyclate 100 mg capsule RxNorm: 7218398 1 Capsule(s) PO BID 06/10/2017 06/19/2017 Inactive prednisone 20 mg tablet RxNorm: 961586 1 Tablet(s) PO T ID for 2 days then 1 po BID for 2 days then 1 daily for 3 days 06/10/2017 08/12/2017 Inactive fenofibrate micronized 134 mg capsule RxNorm: 855117 TAKE 1 CAP KIMI DAILY 06/03/2017 06/22/2018 Inactive Zithromax Z-Isaiah 250 mg tablet RxNorm: 678899 Tablet(s) PO Take as directed 05/28/2017 06/09/2017 Inactive prednisone 20 mg tablet RxNorm: 251084 2 Tablet(s) PO QD 05/28/2017 1 08/01/2016 Inactive Tessalon Perles 100 mg capsule RxNorm: 874679 1 Capsule(s) PO T ID as needed 05/28/2017 06/09/2017 Inactive Janumet XR 100 mg-1,000 mg tablet,extended release RxNorm: 1 471610 1 Tablet(s) PO QD 02/14/2017 06/22/2018 Inactive fluoxetine 40 mg capsule RxNorm: 580878 1 Capsule(s) PO QD 02/15/2006/22/2018 Inactive Vitamin D2 50,000 unit capsule RxNorm: 037772 1 Capsule (s) PO TAKE 1 CAPSULE BY MOUTH TWICE WEEKLY 02/11/2017 07/10/2017 Inactive Generic For:* DRISDOL [id number] 02/03/2015 10:10:59 AM Janumet XR 100 mg-1,000 mg tablet,extended release RxNorm: 1 999697 1 Tablet(s) PO QD 09/24/2016 10/06/2018 Inactive Vitamin D2 50,000 unit capsule RxNorm: 860954 Capsule(s ) TAKE 1 CAPSULE BY MOUTH TWICE WEEKLY 09/11/2016 02/11/2017 Inactive Generic For:*DRI SDOL [id number] 02/03/2015 10:10:59 AM Pepcid 20 mg tablet RxNorm: 248885 Tablet(s) PO TAKE 1 TABLET BY MOUTH TWICE DAILY. 06/14/2016 06/13/2016 Inactive fluoxetine 40 mg capsule RxNorm: 466924 1 Capsule(s) PO QD 06/14/20 16 12/10/2016 Inactive loratadine 10 mg tablet RxNorm: 221827 1 Tablet(s) PO QD 1 Tabl et(s) PO BID 06/14/2016 04/03/2017 Inactive [AttnRPh: Saving ryan ly/adjudicate RxGRP:SG20 RxBIN:[id number] RxPCN: ID#:[id number]] Vitamin D2 50,000 unit capsule RxNorm: 957596 Capsule(s ) TAKE 1 CAPSULE BY MOUTH TWICE WEEKLY 06/14/2016 09/10/2016 Inactive Generic For:*DRI SDOL [id number] 02/03/2015 10:10:59 AM Synthroid 175 mcg tablet RxNorm: 647714 1 Tablet(s) PO Saturday t hrough Saturday QD 06/05/2016 01/15/2018 Inactive Synthroid 150 mcg tablet RxNorm: 055815 1 Tablet(s) PO Sat and Sun 11/09/2015 06/04/2016 Inactive Synthroid 175 mcg tablet RxNorm: 214993 1 Tablet(s) PO Saturday t hrough Saturday11/09/2015 06/04/2016 Inactive Synthroid 150 mcg tablet RxNorm: 395701 1 Tablet(s) PO Sat and Sun , Sat, Sun 11/09/2015 11/08/2015 Inactive Janumet XR 100 mg-1,000 mg tablet,extended release RxNorm: 1 450785 TAKE 1 TABLET DAILY 09/30/2015 09/24/2016 Inactive azithromycin 500 mg tablet RxNorm: 599320 1 Tablet(s) PO QD 016 07/25/2015 Inactive azithromycin 500 mg tablet RxNorm: 245409 1 Tablet(s) PO QD 016 08/01/2015 Inactive loratadine 10 mg tablet RxNorm: 115484 1 Tablet(s) PO BID 04/06/2015 06/14/2016 Inactive [AttnRPh: Saving apply/adjudicate RxGRP: SG20 RxBIN:[id number] RxPCN: ID#:[id number]] Synthroid 175 mcg tablet RxNorm: 829176 1 Tablet(s) PO M, W, F 10/201411/08/2015 Inactive Synthroid 150 mcg tablet RxNorm: 743607 1 Tablet(s) PO QD Tu, T h, Sat, Sun 03/28/2015 11/08/2015 Inactive propranolol 20 mg tablet RxNorm: 555400 1 Tablet(s) PO BID 02/09/20 15 06/13/2016 Inactive fluoxetine 40 mg capsule RxNorm: 469530 1 Capsule(s) PO QD 02/09/20 15 06/14/2016 Inactive Vitamin D2 50,000 unit capsule RxNorm: 166227 TAKE 1 CA PSULE BY MOUTH TWICE WEEKLY 02/03/2015 06/14/2016 Inactive Generic For:*DRI SDOL [id number] 02/03/2015 10:10:59 AM Lipitor 80 mg tablet RxNorm: 900255 1 Tablet(s) PO QD 01/24/201507/26 Inactive [AttnRPh: Saving apply/adjudicate RxGRP: SG20 RxBIN:[id number] RxPCN: ID#:[id number]] Bactrim DS 800 mg-160 mg tablet RxNorm: 704225 1 Tablet(s) PO BID 0 01/12/2015 01/11/2015 Inactive Synthroid 150 mcg tablet RxNorm: 326524 1 Tablet(s) PO QD 01/12/2015 03/27/2015 Inactive Bactrim DS 800 mg-160 mg tablet RxNorm: 282542 1 Tablet(s) PO BID 0 01/12/2015 01/18/2015 Inactive fluoxetine 40 mg capsule RxNorm: 226252 1 Capsule(s) PO QD 01/12/20 15 02/07/2015 Inactive Synthroid 137 mcg tablet RxNorm: 039948 1 Tablet(s) PO QD 12/08/2014 01/11/2015 Inactive [AttnRPh: Saving apply/adjudicate RxGRP: SG20 RxBIN:[id number] RxPCN: ID#:[id number]] Medrol (Isaiah) 4 mg tablets in a dose pack RxNorm: 593311 6 Tablet(s) PO QD --then as directed 11/24/2014 11/29/2014 Inactive albuterol sulfate HFA 90 mcg/actuation aerosol inhaler RxNor m: 610411 2 Puff(s) INH Q4H as needed 10/27/2014 07/24/2017 Inactive phenazopyridine 100 mg tablet RxNorm: 1459146 1 Tablet(s) PO TID 11/07/2015 Inactive [AttnRPh: Saving apply/adjud icate RxGRP:SG20 RxBIN:[id number] RxPCN: ID#:[id number]] Macrobid 100 mg capsule RxNorm: 457255 1 Capsule(s) PO BID 10/28/19 15 11/02/2014 Inactive [SAVINGS FOR NON-COVERED RUBIO GS -- BIN:[id number], PCN: ASPROD1, Group: XXXXX, ID# [id number], Questions: . THIS IS NOT INSURANCE.] prednisone 20 mg tablet RxNorm: 923292 1 Tablet(s) PO BID 10/27/2014 10/31/2014 Inactive AttnRPh: Saving apply/adjudicate RxGRP:S G20 RxBIN:[id number] RxPCN:HT ID#:[id number]: Saving apply/adjudicate RxGRP:SG20 RxBIN:[id number] RxPCN:HT ID#:[id number] Macrobid 100 mg capsule RxNorm: 950741 1 Capsule(s) PO BID 09/24/19 15 09/29/2014 Inactive [SAVINGS FOR NON-COVERED RUBIO GS -- BIN:[id number], PCN: ASPROD1, Group: XXXXX, ID# [id number], Questions: . THIS IS NOT INSURANCE.] phenazopyridine 100 mg tablet RxNorm: 0860792 1 Tablet(s) PO TID 09/24/2014 Inactive [SAVINGS FOR NON-COVERED RUBIO GS -- BIN:[id number], PCN: ASPROD1, Group: XXXXX, ID# [id number], Questions: . THIS IS NOT INSURANCE.] propranolol 60 mg tablet RxNorm: 812455 1 Tablet(s) PO QD 07/26/2014 02/07/2015 Inactive [SAVINGS FOR UNINSURED PATIENTS -- BIN:[id number] [id number], PCN: ASPROD1, Group: [id number], ID# [id number], Process claim through [employer], for questions: . THIS IS NOT INSURANCE.] loratadine 10 mg tablet RxNorm: 386799 1 Tablet(s) PO BID 07/12/2014 07/11/2014 Inactive [AttnRPh: Saving apply/adjudicate RxGRP: [id number] RxBIN:[id number] RxPCN: ID#:[id number]] loratadine 10 mg tablet RxNorm: 000211 1 Tablet(s) PO BID 07/12/2014 10/06/2018 Inactive [SAVINGS FOR UNINSURED PATIENTS -- BIN:0 25026, PCN: ASPROD1, Group: [id number], ID# [id number], Process claim through [employer], for questions: . THIS IS NOT INSURANCE.] Vitamin D2 50,000 unit capsule RxNorm: 586252 1 Capsule (s) PO Take 1 capsule by mouth twice weekly 05/18/2014 02/02/2015 Inactive Pepcid 20 mg tablet RxNorm: 119016 TAKE 1 TABLET BY MOUTH TWICE DAILY. 05/18/2014 06/14/2016 Inactive Generic For:PEPCID 2 0MG 05/18/2014 11:28:51 AM Janumet XR 100 mg-1,000 mg tablet,extended release RxNorm: 1 513155 1 Tablet(s) PO QD 05/12/2014 08/09/2014 Inactive [SAVINGS FOR UNI NSURED PATIENTS -- BIN:[id number], PCN: ASPROD1, Group: [id number], ID# [id number], Process claim through [employer], for questions: . THIS IS NOT INSURANCE.] Voltaren 1 % topical gel RxNorm: 934943 TOP BID 04/21/2014 5 Inactive Apply to affected areas 2-3 times daily as needed. Trilipix 135 mg capsule,delayed release RxNorm: 091590 1 Tablet(s) PO QD 1 Capsule(s) PO QD 04/21/2014 09/17/2014 Inactive may do 90 day f ill if desired Synthroid 137 mcg tablet RxNorm: 330219 1 Tablet(s) PO QD 03/30/2014 09/25/2014 Inactive [AttnRPh: Saving apply/adjudicate RxGRP: SG20 RxBIN:[id number] RxPCN: ID#:[id number]] Cipro 250 mg tablet RxNorm: 559194 1 Tablet(s) PO BID 03/30/201403/24 Inactive [SAVINGS FOR UNINSURED PATIENTS -- BIN:0 47411, PCN: ASPROD1, Group: [id number], ID# [id number], Process claim through MedImp[employer], for questions: . THIS IS NOT INSURANCE.] Janumet XR 100 mg-1,000 mg tablet,extended release RxNorm: 1 326593 2 Tablet(s) PO QD 01/06/2014 01/05/2014 Inactive [SAVINGS FOR UNI NSURED PATIENTS -- BIN:577310, PCN: ASPROD1, Group: [id number], ID# [id number], Process claim through Med[employer], for questions: . THIS IS NOT INSURANCE.] Janumet XR 100 mg-1,000 mg tablet,extended release RxNorm: 1 908162 1 Tablet(s) PO QD 01/06/2014 04/05/2014 Inactive [SAVINGS FOR UNI NSURED PATIENTS -- BIN:083281, PCN: ASPROD1, Group: [id number], ID# [id number], Process claim through [employer], for questions: . THIS IS NOT INSURANCE.] propranolol 60 mg tablet RxNorm: 948067 1 Tablet(s) PO QD 12/28/2013 07/26/2014 Inactive [AttnRPh: Saving apply/adjudicate RxGRP: SG20 RxBIN:[id number] RxPCN: ID#:[id number]] Synthroid 150 mcg tablet RxNorm: 540515 1 Tablet(s) PO QD brand onl y 12/28/2013 04/20/2014 Inactive [AttnRPh: Saving apply/adjud icate RxGRP:SG20 RxBIN:[id number] RxPCN:HT ID#:[id number]] Vitamin D2 50,000 unit capsule RxNorm: 120989 1 Capsule (s) PO Take 1 capsule by mouth twice weekly 12/02/2013 05/17/2014 Inactive Lipitor 80 mg tablet RxNorm: 661606 1 Tablet(s) PO QD 11/24/201305/25 Inactive [AttnRPh: Saving apply/adjudicate RxGRP: SG20 RxBIN:[id number] RxN: ID#:[id number]] loratadine 10 mg tablet RxNorm: 078270 1 Tablet(s) PO BID 11/17/2013 07/12/2014 Inactive fluoxetine 20 mg capsule RxNorm: 628234 1 Capsule(s) PO QAM TAKE ONE CAPSULE BY MOUTH ONCE DAILY IN THE MORNING. 11/04/2013 01/10/2015 Inactive Generic For:PROZAC 20MG Generic For:PROZAC 20MG 06/23/2013 11:55:55 AM [AttnRPh: Saving apply/adjudicate RxGRP:SG20 RxBIN:[id number] RxPCN: ID#:[id number]] Vytorin 10 mg-80 mg tablet RxNorm: 5932962 Tablet(s) PO TAKE ONE TABLET BY MOUTH ONCE DAILY IN THE EVENING. 09/30/2013 11/23/2013 Inactive Trilipix 135 mg capsule,delayed release RxNorm: 273086 1 Capsul e(s) PO QD 07/15/2013 04/21/2014 Inactive may do 90 day fill i f desired Voltaren 1 % topical gel RxNorm: 281658 TOP BID 07/15/2013 4 Inactive Apply to affected areas 2-3 times daily as needed. Wellbutrin XL 300 mg 24 hr tablet, extended release RxNorm: 591438 1 Tablet(s) PO QAM 06/29/2013 04/03/2017 Inactive fluoxetine 20 mg capsule RxNorm: 362053 1 Capsule(s) PO QAM TAKE ONE CAPSULE BY MOUTH ONCE DAILY IN THE MORNING. 06/29/2013 11/04/2013 Inactive Generic For:PROZAC 20MG Generic For:PROZAC 20MG 06/23/2013 11:55:55 AM fluoxetine 20 mg capsule RxNorm: 224726 Capsule(s) PO T ARY ONE CAPSULE BY MOUTH ONCE DAILY IN THE MORNING. 06/23/2013 06/28/2013 Inactive Gener ic For:PROZAC 20MG Generic For:PROZAC 20MG 06/23/2013 11:55:55 AM Synthroid 150 mcg tablet RxNorm: 867402 1 Tablet(s) PO QD brand onl y 06/08/2013 12/04/2013 Inactive Vytorin 10 mg-80 mg tablet RxNorm: 3052706 1 Tablet(s) PO QD 201209/05/2013 Inactive TAKE 1 TABLET BY MOUTH DAILY propranolol 60 mg tablet RxNorm: 606513 1 Tablet(s) PO QD 06/08/2013 12/04/2013 Inactive Pepcid 20 mg tablet RxNorm: 138299 Tablet(s) PO TAKE 1 TABLET BY MOUTH TWICE DAILY. 06/04/2013 11/23/2013 Inactive fluoxetine 20 mg capsule RxNorm: 622769 1 Capsule(s) PO QAM 013 06/22/2013 Inactive Wellbutrin XL 300 mg 24 hr tablet, extended release RxNorm: 244477 1 Tablet(s) PO QAM 05/26/2013 06/28/2013 Inactive Wellbutrin XL 150 mg 24 hr tablet, extended release RxNorm: 675031 1 Tablet(s) PO QD 05/15/2013 05/25/2013 Inactive Wellbutrin XL 150 mg 24 hr tablet, extended release RxNorm: 324560 1 Tablet(s) PO QD 05/15/2013 05/14/2013 Inactive Kombiglyze XR 5 mg-500 mg tablet,extended release RxNorm: 10 58682 1 Tablet(s) PO QD 05/07/2013 05/15/2013 Inactive cefdinir 300 mg capsule RxNorm: 849758 2 Capsule(s) PO QD 04/23/2013 05/02/2013 Inactive AttnRPh: Saving apply/adjudicate RxGRP:S G20 RxBIN:[id number] RxPCN:HT ID#:[id number] Pepcid 20 mg tablet RxNorm: 972561 Tablet(s) PO TAKE 1 TABLET BY MOUTH TWICE DAILY. 04/17/2013 06/13/2016 Inactive Pepcid 20 mg tablet RxNorm: 815400 1 Tablet(s) PO BID 04/06/201305/24 Inactive Vytorin 10-80 10 mg-80 mg tablet RxNorm: 887529 1 Tablet(s) PO QD 0 02/19/2013 06/08/2013 Inactive TAKE 1 TABLET BY MOUTH DAILY loratadine 10 mg tablet RxNorm: 068739 1 Tablet(s) PO BID 01/23/2013 07/21/2013 Inactive Synthroid 150 mcg tablet RxNorm: 508245 1 Tablet(s) PO QD brand onl y 12/02/2012 06/08/2013 Inactive propranolol 60 mg tablet RxNorm: 793543 1 Tablet(s) PO QD 12/02/2012 06/08/2013 Inactive Trilipix 135 mg capsule,delayed release RxNorm: 932265 1 Capsul e(s) PO QD 12/02/2012 05/30/2013 Inactive may do day fill i f desired Pepcid 20 mg tablet RxNorm: 359864 1 Tablet(s) PO BID 11/27/201203/24 Inactive Effexor XR 150 mg capsule,extended release RxNorm: 681573 1 Cap kimi(s) PO QD 11/24/2012 05/14/2013 Inactive Vytorin 10-80 10 mg-80 mg tablet RxNorm: 920938 1 Tablet(s) PO QD 0 11/24/2012 2013 Inactive TAKE 1 TABLET BY MOUTH DAILY Vytorin 10-80 10 mg-80 mg tablet RxNorm: 238006 1 Tablet(s) PO QD 0 11/21/2012 11/24/2012 Inactive TAKE 1 TABLET BY MOUTH DAILY Effexor XR 150 mg capsule,extended release RxNorm: 798584 1 Cap kimi(s) PO QD 11/21/2012 11/24/2012 Inactive loratadine 10 mg tablet RxNorm: 4829841 1 Tablet(s) PO BID 11/12/19 13 01/23/2013 Inactive Vytorin 10-80 10 mg-80 mg tablet RxNorm: 641735 Tablet( s) PO TAKE 1 TABLET BY MOUTH ONCE DAILY. 10/15/2012 11/21/2012 Inactive Vytorin 10-80 10 mg-80 mg tablet RxNorm: 842784 1 Tablet(s) PO QD 0 10/15/2012 11/20/2012 Inactive TAKE 1 TABLET BY MOUTH DAILY Effexor XR 150 mg capsule,extended release RxNorm: 434206 1 Cap kimi(s) PO QD 10/15/2012 11/20/2012 Inactive Effexor XR 150 mg capsule,extended release RxNorm: 179592 Capsule(s) PO TAKE 1 CAPSULE BY MOUTH ONCE DAILY 10/15/2012 11/21/2012 Inactive azithromycin 250 mg tablet RxNorm: 565559 2 Tablet(s) PO QD 013 09/10/2012 Inactive Culturelle 10 billion cell capsule RxNorm: 852637 1 Cap kimi(s) PO BID for diarrhea maintenance 09/03/2012 10/02/2012 Inactive Medrol (Isaiah) 4 mg tablets in a dose pack RxNorm: 022667 Tablet(s) PO as directed 09/03/2012 07/11/2011 Active as directed Culturelle 10 billion cell capsule RxNorm: 470263 1 Capsule(s) PO BID 07/23/2012 08/21/2012 Inactive Vitamin D2 50,000 unit capsule RxNorm: 137171 Capsule(s ) PO TAKE 1 CAPSULE EVERY DAY SATURDAY THRU Saturday07/09/2012 08/20/2013 Inactive Vitamin D2 50,000 unit capsule RxNorm: 7634088 Capsule(s ) PO TAKE 1 CAPSULE EVERY DAY SATURDAY THRU Saturday07/07/2012 07/08/2012 Inactive Vitamin D2 50,000 unit capsule RxNorm: 7646303 Capsule(s ) PO TAKE 1 CAPSULE EVERY DAY SATURDAY THRU Saturday07/07/2012 07/06/2012 Inactive Vitamin D2 50,000 unit capsule RxNorm: 8203128 Capsule(s ) PO TAKE 1 CAPSULE EVERY DAY SATURDAY THRU Saturday06/27/2012 07/06/2012 Inactive Synthroid 150 mcg tablet RxNorm: 754673 1 Tablet(s) PO QD brand onl y 06/09/2012 12/02/2012 Inactive metformin 1,000 mg tablet RxNorm: 545934 1 Tablet(s) PO BID rep laces 500mg dose 05/20/2012 11/10/2012 Inactive propranolol 60 mg tablet RxNorm: 128728 1 Tablet(s) PO QD 04/23/2012 12/02/2012 Inactive Effexor XR 150 mg capsule,extended release RxNorm: 794476 1 Cap kimi(s) PO QD 04/04/2012 09/30/2012 Inactive Zyrtec 10 mg tablet RxNorm: 4704906 1 Tablet(s) PO QD 04/04/201203/24 Inactive Trilipix 135 mg capsule,delayed release RxNorm: 358452 1 Capsul e(s) PO QD 03/19/2012 12/02/2012 Inactive may do 90 day fill i f desired Vytorin 10-80 10 mg-80 mg tablet RxNorm: 171625 1 Tablet(s) PO QD 0 01/31/2012 07/28/2012 Inactive TAKE 1 TABLET BY MOUTH DAILY Voltaren 1 % topical gel RxNorm: 743364 TOP BID 01/25/2012 4 Inactive Apply to affected areas 2-3 times daily as needed. Synthroid 150 mcg tablet RxNorm: 380876 1 Tablet(s) PO QD brand onl y 01/02/2012 06/09/2012 Inactive metformin ER 1,000 mg 24 hr Tab Ctrl Rel RxNorm: 609019 1 Table t(s) PO QD 01/02/2012 05/19/2012 Inactive metformin ER 500 mg 24 hr Tab RxNorm: 210982 Tablet(s) PO 12/21/2011 01/01/2012 Inactive TAKE 1 TABLET BY MOUTH ONCE DAILY. Voltaren 1 % Topical Gel RxNorm: 723300 TOP BID 11/28/2011 2 Inactive Apply to affected areas 2-3 times daily as needed. propranolol 60 mg tablet RxNorm: 974524 1 Tablet(s) PO QD 10/17/2011 04/23/2012 Inactive Effexor XR 150 mg capsule,extended release RxNorm: 001300 1 Cap kimi(s) PO QD 09/13/2011 04/04/2012 Inactive Medrol (Isaiah) 4 mg tablets in a dose pack RxNorm: 712561 Tablet(s) PO as directed 09/04/2011 07/11/2011 Active as directed doxycycline hyclate 100 mg Tab RxNorm: 6012644 1 Tablet(s) PO BID 0 09/04/2011 09/13/2011 Inactive doxycycline monohydrate 100 mg Tab RxNorm: 7255958 1 Tablet(s) P O BID 07/25/2011 08/03/2011 Inactive prednisone 10 mg Tab RxNorm: 329265 1 Tablet(s) PO TID 07/25/201112/2011 Inactive Synthroid 150 mcg Tab RxNorm: 999465 1 Tablet(s) PO QD brand only 0 07/12/2011 01/02/2012 Inactive Vytorin 10-80 10 mg-80 mg Tab RxNorm: 316953 1 Tablet(s) PO QD 05/2601/31/2012 Inactive TAKE 1 TABLET BY MOUTH DAILY Vitamin D2 50,000 unit capsule RxNorm: 6048155 1 Capsule(s) PO Q D M-F 05/15/2011 06/26/2012 Inactive TAKE 1 CAPSULE BY MO [facility] DAILY SATURDAY THROUGH FRIDAYS Synthroid 150 mcg Tab RxNorm: 218843 1 Tablet(s) PO QD brand only 1 07/09/2010 07/11/2011 Inactive doxycycline monohydrate 100 mg Tab RxNorm: 9949544 1 Tablet(s) P O BID 04/25/2011 05/04/2011 Inactive Trilipix 135 mg capsule,delayed release RxNorm: 099714 1 Capsul e(s) PO QD 04/23/2011 03/19/2012 Inactive cefdinir 300 mg Cap RxNorm: 613277 1 Capsule(s) PO BID 04/04/2011 Inactive propranolol 60 mg Tab RxNorm: 556834 1 Tablet(s) PO QD 03/26/2011 Inactive Ultram 50 mg Tab RxNorm: 952424 1-2 Tablet(s) PO QID 03/22/201103/21 Active prn pain metformin ER 500 mg 24 hr Tab RxNorm: 879343 1 Tablet(s) PO QD 06/201006/21/2011 Inactive Synthroid 150 mcg Tab RxNorm: 692373 1 Tablet(s) PO QD 02/22/201112/2010 Inactive Vytorin 10-80 10 mg-80 mg Tab RxNorm: 605047 1 Tablet(s) PO QD 01/2303/13/2011 Inactive TAKE 1 TABLET BY MOUTH DAILY Trilipix 135 mg Cap RxNorm: 948324 1 Capsule(s) PO QD 01/10/201103/26 Inactive Effexor XR 150 mg 24 hr Cap RxNorm: 111656 1 Capsule(s) PO QD 01/0908/06/2011 Inactive Vitamin D 50,000 unit Cap RxNorm: 5711412 Capsule(s) PO 12/20/2010 Inactive TAKE 1 CAPSULE BY MOUTH DAILY Fridays Septra DS 800 mg-160 mg Tab RxNorm: 577469 1 Tablet(s) PO BID 12/0712/16/2010 Inactive mupirocin 2 % Ointment RxNorm: 851445 1 Application TOP BID Apply to affected area twice daily 12/07/2010 12/13/2010 Inactive Trilipix 135 mg Cap RxNorm: 368442 1 Capsule(s) PO QD 10/16/201003/26 Inactive Synthroid 150 mcg Tab RxNorm: 951794 1 Tablet(s) PO QD 10/09/201006/2010 Inactive metformin ER 500 mg 24 hr Tab RxNorm: 290387 1 Tablet(s) PO QD 09/2202/22/2011 Inactive Nexium 40 mg Cap RxNorm: 225929 1 Capsule(s) PO QD 10/05/2010 019 Inactive Vytorin 10-80 10 mg-80 mg Tab RxNorm: 570397 1 Tablet(s) PO QD 09/201002/12/2011 Inactive propranolol 60 mg Tab RxNorm: 808254 1 Tablet(s) PO QD 09/18/201008/2010 Inactive Synthroid 125 mcg Tab RxNorm: 853544 1 Tablet(s) PO QD 08/07/2010 Inactive Synthroid 125 mcg Tab RxNorm: 980228 1 Tablet(s) PO QD 08/07/2010 Inactive Voltaren 1 % Topical Gel RxNorm: 750535 TOP BID Apply t o affected areas 2-3 times daily as needed. 08/01/2010 11/28/2011 Inactive Voltaren 1 % Topical Gel RxNorm: 015289 TOP BID Apply t o affected areas 2-3 times daily as needed. 07/04/2010 07/31/2010 Inactive Advair Diskus 250 mcg-50 mcg/dose for Inhalation RxNorm: 135 9859 1 Puff(s) INH Q12H 07/04/2010 07/11/2011 Inactive Effexor XR 150 mg 24 hr Cap RxNorm: 396820 1 Capsule(s) PO QD 06/0801/03/2011 Inactive Synthroid 100 mcg Tab RxNorm: 316071 1 Tablet(s) PO QD 06/06/2010 Inactive Vitamin D 50,000 unit Cap RxNorm: 4720847 1 Capsule(s) PO QD M-F 05/15/2011 Inactive Synthroid 150 mcg Tab RxNorm: 097795 1 Tablet(s) PO 05/25/20102010 Inactive Vytorin 10-80 10 mg-80 mg Tab RxNorm: 403075 1 Tablet(s) PO QD 04/2509/25/2010 Inactive Trilipix 135 mg Cap RxNorm: 993458 1 Capsule(s) PO QD 04/17/201009/23 Inactive propranolol 60 mg Tab RxNorm: 098367 1 Tablet(s) PO QD 01/09/2010 Inactive Advair Diskus 250 mcg-50 mcg/dose for Inhalation RxNorm: 135 9859 1 Puff(s) INH Q12H 12/26/2009 07/04/2010 Inactive Advair Diskus 250 mcg-50 mcg/Dose for Inhalation RxNorm: 135 9859 1 Puff(s) INH Q12H 11/26/2009 12/25/2009 Inactive Synthroid 200 mcg Tab RxNorm: 559361 1 Tablet(s) PO QD 11/24/2009 Inactive Effexor XR 150 mg 24 hr Cap RxNorm: 044267 1 Capsule(s) PO QD 10/2705/24/2010 Inactive Lisinopril 10 mg Tab RxNorm: 612287 1 Tablet(s) PO QD 10/17/200909/23 Inactive Propranolol 60 mg Tab RxNorm: 527297 1 Tablet(s) PO QD 10/17/2009 Inactive Septra DS 160 mg-800 mg Tab RxNorm: 004982 1 Tablet(s) PO BID 10/0410/08/2009 Inactive Mupirocin 2 % Ointment RxNorm: 975921 TOP Q6-8H 10/04/2009 10/10/2009 Inactive Voltaren 1 % Topical Gel RxNorm: 180773 TOP BID Apply t o affected areas 2-3 times daily as needed. 09/21/2009 03/19/2010 Inactive Trilipix 135 mg Cap RxNorm: 405388 1 Capsule(s) PO QD 09/20/200902/23 Inactive Nexium 40 mg Cap RxNorm: 335219 1 Capsule(s) PO QD 09/19/2009 010 Inactive Tylenol Arthritis 650 mg Tab RxNorm: 7611863 2 Tablet(s) PO BID 09/21 Active Vitamin D3 5,000 unit tablet RxNorm: 446590 1 Tablet(s) PO QD 019 Active Synthroid 150 mcg tablet RxNorm: 476865 1 Tablet(s) PO QD 01/12/2015 01/11/2015 Inactive Synthroid 150 mcg tablet RxNorm: 804610 1 Tablet(s) PO Saturday and Saturday01/16/2018 01/15/2018 Inactive Vitamin D 2,000 unit Cap RxNorm: 1 Capsule(s) PO QD 01/30/201002/2010 Inactive Flexeril 5 mg tablet RxNorm: 588476 1/2 to 1 Tablet(s) PO TID as needed for muscle spasm 06/10/2017 06/09/2017 Inactive Medrol (Isaiah) 4 mg Tabs in a Dose Pack RxNorm: 390856 Tablet(s) PO 0 09/04/2011 07/11/2011 Inactive as directed fenofibrate micronized 134 mg capsule RxNorm: 122869 1 Capsule( s) PO QD 06/03/2017 06/02/2017 Inactive Vitamin D2 50,000 unit capsule RxNorm: 387144 Capsule(s ) PO Take 1 capsule by mouth twice weekly 12/02/2013 12/01/2013 Inactive prednisone 20 mg tablet RxNorm: 883986 1 Tablet(s) PO BID 03/30/2014 03/29/2014 Inactive AttnRPh: Saving apply/adjudicate RxGRP:S G20 RxBIN:[id number] RxPCN:HT ID#:[id number]: Saving apply/adjudicate RxGRP:SG20 RxBIN:[id number] RxPCN:HT ID#:[id number] Soma 350 mg tablet RxNorm: 480574 1 Tablet(s) PO TID prn spasm 01/2310/08/2010 Inactive Lancets,Ultra Thin RxNorm: Miscellaneous Use to test blood sugar daily and as needed (Dx: E11.65) 02/28/2018 02/27/2018 Inactive pantoprazole 40 mg tablet,delayed release RxNorm: 885153 1 Tabl et(s) PO QD 08/21/2017 08/20/2017 Inactive Janumet XR 100 mg-1,000 mg tablet,extended release RxNorm: 1 681570 2 Tablet(s) PO QD 01/06/2014 01/05/2014 Inactive Contour Meter RxNorm: miscellaneous 02/27/2018 02/26/2018 Inactive Synthroid 200 mcg Tab RxNorm: 830275 1 Tablet(s) PO QD 11/24/200907/2009 Inactive Kombiglyze XR 5 mg-500 mg tablet,extended release RxNorm: 10 81020 1 Tablet(s) PO QD 05/07/2013 05/06/2013 Inactive Zithromax Z-Isaiah 250 mg tablet RxNorm: 251131 Tablet(s) PO as di rected 05/14/2013 05/13/2013 Inactive AttnRPh: Saving appl y/adjudicate RxGRP:SG20 RxBIN:[id number] RxPCN:HT ID#:[id number] Fish Oil 1,000 mg capsule RxNorm: 3 Capsule(s) PO QD 04/04/2017 Inactive Lasix Oral RxNorm: Oral 03/30/2014 03/29/2014 Inactive loratadine 10 mg tablet RxNorm: 548258 1 Tablet(s) PO QD 08/20/2017 0 08/19/2017 Inactive Vitamin D 5,000 unit Tab RxNorm: 1 Tablet(s) PO twice a week 1 08/07/2009 06/05/2010 Inactive permethrin 5 % Topical Cream RxNorm: 668050 TOP Use as directed 02/03/2013 Inactive Gabapentin 100 mg Tab RxNorm: 438502 1 Tablet(s) PO BID 04/12/2010 Inactive Voltaren 1 % topical gel RxNorm: 566764 TOP as needed 06/23/201805/26 Inactive Gabapentin 300 mg Cap RxNorm: 361077 1 Capsule(s) PO BID 07/12/2011 0 07/11/2011 Inactive Contour Test Strips RxNorm: Miscellaneous Test blood sug ar daily (Dx: E11.65) 02/28/2018 02/27/2018 Inactive Promethazine 25 mg Tab RxNorm: 045189 1 Tablet(s) PO Q6 -8H As needed for nausea and vomiting. 10/09/2010 10/08/2010 Inactive propranolol 20 mg tablet RxNorm: 264992 1 Tablet(s) PO BID 03/17/20 18 03/16/2018 Inactive Vitamin D 50,000 unit Cap RxNorm: 5774777 Capsule(s) PO 2 weekly 06/05/2010 Inactive Synthroid 175 mcg Tab RxNorm: 173650 1 Tablet(s) PO QD 07/12/2011 Inactive triamcinolone acetonide 0.1 % Ointment RxNorm: 1010808 T OP TID apply three times a day (sparingly) as needed for itching 04/04/2017 04/03/2017 Inactive Ultram 50 mg Tab RxNorm: 310342 1-2 Tablet(s) PO QID prn pain 03/2203/22/2011 Inactive Topamax 100 mg Tab RxNorm: 522003 1 Tablet(s) PO BID 10/04/200910/03 Inactive Vitamin D3 1000 units Capsule RxNorm: 3 Capsule(s) PO QD 0 06/05/2010 Inactive Singulair 10 mg tablet RxNorm: 136930 1 Tablet(s) PO QD 06/23/2018 Inactive Medication [...] Code Result Date S ervice Location SARS-CoV2 8402186 SARS-CoV2 PCR Detected 07/08/2021 [facility] GFR CALC 3410497 GFR Non Afr Amr >60 mL/min 01/26/2019 Un known GFR CALC 9133514 GFR Afr Amr >60 mL/min 01/26/2019 Unknow n COMPLETE BLOOD COUNT 9238119 WBC 7.0 10e9/L 01/27/20 19 Unknown COMPLETE BLOOD COUNT [id number] RBC 4.52 10e12/L 2018 Unknown COMPLETE BLOOD COUNT 4693299 HEMOGLOBIN 14.0 g/dL 01/27/20 19 Unknown COMPLETE BLOOD COUNT 7300473 HEMATOCRIT 42.6 % 01/27/20 19 Unknown COMPLETE BLOOD COUNT 9261237 MCV 94.2 fL 9 Unknown COMPLETE BLOOD COUNT 1348948 MCH 31.0 pg 9 Unknown COMPLETE BLOOD COUNT 5258939 MCHC 32.9 g/dL 9 Unknown COMPLETE BLOOD COUNT 7709689 PLATELET COUNT 272 10e9/L 10/2018 Unknown COMPLETE BLOOD COUNT 2720683 Mean Plt Volume 10.4 fL 10/2018 Unknown COMPLETE BLOOD COUNT 5522753 Neut Auto 53.9 % 9 Unknown COMPLETE BLOOD COUNT 3621634 Lymph Auto 33.8 % 01/27/20 19 Unknown COMPLETE BLOOD COUNT 6774315 [place] Auto 9.1 % 9 Unknown COMPLETE BLOOD COUNT 6272675 RDW 13.2 % 9 Unknown COMPLETE BLOOD COUNT 9608916 Eos Auto 2.3 % 9 Unknown COMPLETE BLOOD COUNT 5962144 Baso Auto 0.9 % 9 Unknown COMPLETE BLOOD COUNT 1518480 Neutrophil Abs 3.77 10e9/L Unknown COMPLETE BLOOD COUNT 7939450 Lymphocyte Abs 2.37 10e9/L Unknown COMPLETE BLOOD COUNT 9454774 Monocyte Abs 0.64 10e9/L 10/2018 Unknown COMPLETE BLOOD COUNT 2660507 Eosinophil Abs 0.16 10e9/L Unknown COMPLETE BLOOD COUNT 9449258 RDW-SD 44.2 fL 9 Unknown COMPLETE BLOOD COUNT 3492724 Basophil Abs 0.06 10e9/L 10/2018 Unknown COMPREHENSIVE METABOLIC 34557 AST 15 U/L 2018 Unknown COMPREHENSIVE METABOLIC 42821 ALT 18 U/L 2018 Unknown COMPREHENSIVE METABOLIC 99060 BUN 10 mg/dL 2018 Unknown COMPREHENSIVE METABOLIC 95060 ALBUMIN 4.1 g/dL 2018 Unknown COMPREHENSIVE METABOLIC 05570 CHLORIDE 100 mmol/L 01/26 Unknown COMPREHENSIVE METABOLIC 12815 Bili Total 0.4 mg/dL 01/26 Unknown COMPREHENSIVE METABOLIC 02082 ALK PHOS 57 U/L 2018 Unknown COMPREHENSIVE METABOLIC 79463 SODIUM 136 mmol/L 01/26 Unknown COMPREHENSIVE METABOLIC 86337 CREATININE 0.71 mg/dL 10/2018 Unknown COMPREHENSIVE METABOLIC 40172 CALCIUM 9.3 mg/dL 2018 Unknown COMPREHENSIVE METABOLIC 84176 POTASSIUM 4.4 mmol/L 01/26 Unknown COMPREHENSIVE METABOLIC 04834 Total Protein 6.7 g/dL Unknown COMPREHENSIVE METABOLIC 44143 Glucose 88 mg/dL 2018 Unknown COMPREHENSIVE METABOLIC 11779 Bicarbonate 27 mmol/L 10/2018 Unknown COMPREHENSIVE METABOLIC 51945 AGAP 9 mmol/L 2018 Unknown Procedures Procedure Codes Date RML URINE CULTURE/ COLONY COUNT CPT-4: 12507 06/29/19 23 THER/PROPH/DIAG INJ SC/IM CPT-4: 39820 04/18/2022 KETOROLAC TROMETHAMINE INJ CPT-4: J1885 04/18/2022 FLU 64 + VACC AIIV4 NO PRSRV 0.5ML IM CPT-4: 51937 ADMIN INFLUENZA VIRUS VAC CPT-4: G0008 04/05/2022 PPPS, subseq visit CPT-4: G0439 02/06/2022 DEXAMETHASONE SODIUM PHOS CPT-4: J1100 11/09/2021 THER/PROPH/DIAG INJ SC/IM CPT-4: 16398 11/09/2021 TRIAMCINOLONE ACET INJ NOS CPT-4: J3301 11/09/2021 CEFTRIAXONE SODIUM INJECTION CPT-4: J0696 10/30/2021 THER/PROPH/DIAG INJ SC/IM CPT-4: 59389 10/30/2021 INFLUENZA ASSAY W/OPTIC CPT-4: 68858 10/30/2021 THER/PROPH/DIAG INJ SC/IM CPT-4: 63568 09/05/2021 TRIAMCINOLONE ACET INJ NOS CPT-4: J3301 09/05/2021 INFLUENZA ASSAY W/OPTIC CPT-4: 77583 07/04/2021 SARS-CoV2 CPT-4: 4840038 07/04/2021 FLU VACC PRSV FREE INC ANTIG 65 AND OLDER CPT-4: 24745 03/29/2021 FLU VACC PRSV FREE INC ANTIG 65 AND OLDER CPT-4: 23165 03/29/2021 ADMIN INFLUENZA VIRUS VAC CPT-4: G0008 03/29/2021 DRAINAGE OF SKIN ABSCESS CPT-4: 18042 02/08/2021 PPPS, subseq visit CPT-4: G0439 01/03/2021 OCCULT BLOOD FECES CPT-4: 93553 07/13/2020 RML URINE CULTURE/ COLONY COUNT CPT-4: 28063 05/17/20 20 URINALYSIS NONAUTO W/O SCOPE CPT-4: 32410 05/17/2020 CEFTRIAXONE SODIUM INJECTION CPT-4: J0696 03/07/2020 THER/PROPH/DIAG INJ SC/IM CPT-4: 40373 03/07/2020 THER/PROPH/DIAG INJ SC/IM CPT-4: 45393 03/07/2020 METHYLPREDNISOLONE INJECTION CPT-4: J2930 03/07/2020 PPPS, subseq visit CPT-4: G0439 12/21/2019 RML URINE CULTURE/ COLONY COUNT CPT-4: 20057 09/11/19 20 CEFTRIAXONE SODIUM INJECTION CPT-4: J0696 09/08/2019 THER/PROPH/DIAG INJ SC/IM CPT-4: 16828 09/08/2019 THER/PROPH/DIAG INJ SC/IM CPT-4: 15819 09/07/2019 CEFTRIAXONE SODIUM INJECTION CPT-4: J0696 09/07/2019 THER/PROPH/DIAG INJ SC/IM CPT-4: 54541 09/07/2019 URINALYSIS NONAUTO W/O SCOPE CPT-4: 93646 09/02/2019 RML URINE CULTURE/ COLONY COUNT CPT-4: 02250 09/02/19 20 FLU VACC PRSV FREE INC ANTIG 65 AND OLDER CPT-4: 93034 04/15/2019 URINALYSIS NONAUTO W/O SCOPE CPT-4: 98462 04/15/2019 RML URINE CULTURE/ COLONY COUNT CPT-4: 43444 04/15/20 19 ADMIN INFLUENZA VIRUS VAC CPT-4: G0008 04/15/2019 FLU VACC PRSV FREE INC ANTIG 65 AND OLDER CPT-4: 80862 04/15/2019 THER/PROPH/DIAG INJ SC/IM CPT-4: 53732 04/07/2019 TRIAMCINOLONE ACET INJ NOS CPT-4: J3301 04/07/2019 DEXAMETHASONE SODIUM PHOS CPT-4: J1100 04/07/2019 URINALYSIS NONAUTO W/O SCOPE CPT-4: 37083 03/18/2019 RML URINE CULTURE/ COLONY COUNT CPT-4: 53425 03/18/20 19 ROUTINE VENIPUNCTURE CPT-4: 02872 01/26/2019 RML COMPREHEN METABOLIC PANEL CPT-4: 17809 01/26/2019 RML COMPLETE CBC W/AUTO DIFF WBC CPT-4: 21814 019 RML URINE CULTURE/ COLONY COUNT CPT-4: 92127 01/27/20 19 URINALYSIS NONAUTO W/O SCOPE CPT-4: 41664 01/26/2019 THER/PROPH/DIAG INJ SC/IM CPT-4: 12907 01/08/2019 TRIAMCINOLONE ACET INJ NOS CPT-4: J3301 01/08/2019 THER/PROPH/DIAG INJ SC/IM CPT-4: 02394 01/06/2019 METHYLPREDNISOLONE INJECTION CPT-4: J2930 01/06/2019 AIRWAY INHALATION TREATMENT CPT-4: 93282 01/06/2019 RML URINE CULTURE/ COLONY COUNT CPT-4: 31194 01/07/20 19 PPPS, subseq visit CPT-4: G0439 12/11/2018 URINALYSIS NONAUTO W/O SCOPE CPT-4: 14202 12/11/2018 RML URINE CULTURE/ COLONY COUNT CPT-4: 32382 12/12/19 19 CULTURE OTHR SPECIMN AEROBIC CPT-4: 92921 12/11/2018 OCCULT BLOOD FECES CPT-4: 37015 12/11/2018 THER/PROPH/DIAG INJ SC/IM CPT-4: 34895 10/07/2018 TRIAMCINOLONE ACET INJ NOS CPT-4: J3301 10/07/2018 DEXAMETHASONE SODIUM PHOS CPT-4: J1100 10/07/2018 THER/PROPH/DIAG INJ SC/IM CPT-4: 76388 10/16/2017 TRIAMCINOLONE ACET INJ NOS CPT-4: J3301 10/16/2017 THER/PROPH/DIAG INJ SC/IM CPT-4: 90504 10/16/2017 KETOROLAC TROMETHAMINE INJ CPT-4: J1885 10/16/2017 INFLUENZA ASSAY W/OPTIC CPT-4: 30470 07/25/2017 FLU VACC PRSV FREE INC ANTIG 65 AND OLDER CPT-4: 42404 04/04/2017 PNEUMOCOCCAL VACC 23 DANAY IM CPT-4: 46774 04/04/2017 PPPS, subseq visit CPT-4: G0439 04/04/2017 ADMIN INFLUENZA VIRUS VAC CPT-4: G0008 04/04/2017 ADMIN PNEUMOCOCCAL VACCINE CPT-4: G0009 04/04/2017 URINALYSIS NONAUTO W/O SCOPE CPT-4: 42450 06/05/2016 FLU VACC PRSV FREE INC ANTIG 65 AND OLDER CPT-4: 68759 05/01/2016 ADMIN INFLUENZA VIRUS VAC CPT-4: G0008 05/01/2016 URINALYSIS NONAUTO W/O SCOPE CPT-4: 58397 11/08/2015 URINALYSIS NONAUTO W/O SCOPE CPT-4: 97115 03/28/2015 ADMIN INFLUENZA VIRUS VAC CPT-4: G0008 03/28/2015 FLU VACC PRSV FREE INC ANTIG 65 AND OLDER CPT-4: 62009 03/28/2015 PRESCRIP TRANSMIT VIA ERX SY CPT-4: G8553 03/28/2015 PNEUMOCOCCAL VACC 13 DANAY IM CPT-4: 37214 02/08/2015 ADMIN PNEUMOCOCCAL VACCINE CPT-4: G0009 02/08/2015 PRESCRIP TRANSMIT VIA ERX SY CPT-4: G8553 02/08/2015 RML URINE CULTURE/ COLONY COUNT CPT-4: 33618 01/12/20 15 URINALYSIS NONAUTO W/O SCOPE CPT-4: 53276 01/11/2015 PRESCRIP TRANSMIT VIA ERX SY CPT-4: G8553 01/11/2015 PRESCRIP TRANSMIT VIA ERX SY CPT-4: G8553 11/24/2014 URINALYSIS NONAUTO W/O SCOPE CPT-4: 21979 10/27/2014 RML URINE CULTURE/ COLONY COUNT CPT-4: 27969 10/28/19 15 PRESCRIP TRANSMIT VIA ERX SY CPT-4: G8553 10/27/2014 CEFTRIAXONE SODIUM INJECTION CPT-4: J0696 09/23/2014 THER/PROPH/DIAG INJ SC/IM CPT-4: 14295 09/23/2014 URINALYSIS NONAUTO W/O SCOPE CPT-4: 95282 09/23/2014 RML URINE CULTURE/ COLONY COUNT CPT-4: 09954 09/24/19 15 PRESCRIP TRANSMIT VIA ERX SY CPT-4: G8553 09/23/2014 URINALYSIS NONAUTO W/O SCOPE CPT-4: 07483 03/30/2014 RML URINE CULTURE/ COLONY COUNT CPT-4: 64456 03/30/20 14 PRESCRIP TRANSMIT VIA ERX SY CPT-4: G8553 03/30/2014 PRESCRIP TRANSMIT VIA ERX SY CPT-4: G8553 11/24/2013 PRESCRIP TRANSMIT VIA ERX SY CPT-4: G8553 06/29/2013 PRESCRIP TRANSMIT VIA ERX SY CPT-4: G8553 05/26/2013 PRESCRIP TRANSMIT VIA ERX SY CPT-4: G8553 04/23/2013 THER/PROPH/DIAG INJ SC/IM CPT-4: 85509 03/05/2013 KETOROLAC TROMETHAMINE INJ CPT-4: J1885 03/05/2013 PRESCRIP TRANSMIT VIA ERX SY CPT-4: G8553 11/27/2012 PRESCRIP TRANSMIT VIA ERX SY CPT-4: G8553 11/11/2012 PRESCRIP TRANSMIT VIA ERX SY CPT-4: G8553 09/03/2012 PRESCRIP TRANSMIT VIA ERX SY CPT-4: G8553 07/23/2012 PRESCRIP TRANSMIT VIA ERX SY CPT-4: G8553 05/20/2012 PRESCRIP TRANSMIT VIA ERX SY CPT-4: G8553 04/04/2012 DESTRUCT PREMALG LESION (Cryosurgery) CPT-4: 10073 PRESCRIP TRANSMIT VIA ERX SY CPT-4: G8553 01/02/2012 PRESCRIP TRANSMIT VIA ERX SY CPT-4: G8553 09/04/2011 URINALYSIS NONAUTO W/O SCOPE CPT-4: 52221 07/31/2011 PRESCRIP TRANSMIT VIA ERX SY CPT-4: G8553 07/12/2011 PRESCRIP TRANSMIT VIA ERX SY CPT-4: G8553 05/09/2011 THER/PROPH/DIAG INJ SC/IM CPT-4: 94394 05/02/2011 KETOROLAC TROMETHAMINE INJ CPT-4: J1885 05/02/2011 PRESCRIP TRANSMIT VIA ERX SY CPT-4: G8553 04/25/2011 CUR TOBACCO NON-USER CPT-4: G8457 04/04/2011 PRESCRIP TRANSMIT VIA ERX SY CPT-4: G8553 04/04/2011 DRAIN/INJECT JOINT/BURSA CPT-4: 24052 03/01/2011 METHYLPREDNISOLONE 40 MG INJ CPT-4: J1030 03/01/2011 TRIAMCINOLONE ACET INJ NOS CPT-4: J3301 03/01/2011 DRAIN/INJECT JOINT/BURSA CPT-4: 74940 01/04/2011 METHYLPREDNISOLONE 40 MG INJ CPT-4: J1030 01/04/2011 TRIAMCINOLONE ACET INJ NOS CPT-4: J3301 01/04/2011 PRESCRIP TRANSMIT VIA ERX SY CPT-4: G8553 12/07/2010 PRESCRIP TRANSMIT VIA ERX SY CPT-4: G8553 10/09/2010 PRESCRIP TRANSMIT VIA ERX SY CPT-4: G8553 06/06/2010 DRAIN/INJECT JOINT/BURSA CPT-4: 51289 04/12/2010 TRIAMCINOLONE ACET INJ NOS CPT-4: J3301 04/12/2010 METHYLPREDNISOLONE 80 MG INJ CPT-4: J1040 04/12/2010 PRESCRIP TRANSMIT VIA ERX SY CPT-4: G8553 03/20/2010 THER/PROPH/DIAG INJ SC/IM CPT-4: 20186 01/30/2010 KETOROLAC TROMETHAMINE INJ CPT-4: J1885 01/30/2010 PRESCRIP TRANSMIT VIA ERX SY CPT-4: G8553 01/30/2010 DRAIN/INJECT JOINT/BURSA CPT-4: 97406 10/26/2009 TRIAMCINOLONE ACET INJ NOS CPT-4: J3301 10/26/2009 METHYLPREDNISOLONE 80 MG INJ CPT-4: J1040 10/26/2009 DRAINAGE OF SKIN ABSCESS CPT-4: 94136 10/04/2009 Vital Signs Date Vital 09/05/2022 Blood Pressure 1: 124/78 Code: 8480-6 Heart Rate 1: 65 bpm Respiratory Rate: 20 bpm SpO2: 97% Temperature: 36.7 (C) / 98.0 (F) We ight: 224 lbs Code: 32713-8 08/30/2022 Blood Pressure 1: 124/74 Code: 8480-6 Heart Rate 1: 74 bpm Respiratory Rate: 20 bpm SpO2: 96% Temperature: 36.3 (C) / 97.3 (F) We ight: 224 lbs Code: 72159-5 08/07/2022 Blood Pressure 1: 126/74 Code: 8480-6 Heart Rate 1: 73 bpm Respiratory Rate: 20 bpm SpO2: 97% Temperature: 36.2 (C) / 97.1 (F) We ight: 222 lbs Code: 83322-3 06/29/2022 Blood Pressure 1: 132/73 Code: 8480-6 BMI: 36.7 Code: 42375-9 Heart Rate 1: 74 bpm Height: 5'6" Code: 8302-2 SpO2: 96% Temperature: 3 6.4 (C) / 97.6 (F) Weight: 226 lbs Code: 57561-0 05/28/2022 Blood Pressure 1: 129/78 Code: 8480-6 BMI: 37.7 Code: 96106-7 Heart Rate 1: 72 bpm Height: 5'6" Code: 8302-2 SpO2: 95% Temperature: 3 6.2 (C) / 97.1 (F) Weight: 232 lbs Code: 89735-7 05/10/2022 Blood Pressure 1: 133/75 Code: 8480-6 BMI: 38.3 Code: 78660-4 Heart Rate 1: 68 bpm Height: 5'6" Code: 8302-2 SpO2: 98% Temperature: 3 6.2 (C) / 97.1 (F) Weight: 236 lbs Code: 79055-0 04/18/2022 Blood Pressure 1: 118/70 Code: 8480-6 Heart Rate 1: 86 bpm Respiratory Rate: 20 bpm SpO2: 96% Temperature: 36.6 (C) / 97.8 (F) We ight: 238 lbs Code: 39324-8 02/15/2022 Blood Pressure 1: 120/82 Code: 8480-6 Heart Rate 1: 88 bpm Respiratory Rate: 20 bpm SpO2: 98% Temperature: 36.1 (C) / 97.0 (F) We ight: 237 lbs Code: 35431-3 02/06/2022 Blood Pressure 1: 124/80 Code: 8480-6 BMI: 39.4 Code: 54338-8 Heart Rate 1: 76 bpm Height: 5'6" Code: 8302-2 Respiratory Rate: 20 bpm SpO2: 98% Temperature: 36.6 (C) / 97.9 (F) Weight: 242 lbs Code: 83396-1 02/01/2022 Blood Pressure 1: 144/100 Code: 8480-6 Heart Rat e 1: 108 bpm Respiratory Rate: 22 bpm SpO2: 96% Temperature: 36.4 (C) / 97.5 (F) 11/29/2021 Blood Pressure 1: 128/80 Code: 8480-6 Heart Rate 1: 56 bpm Respiratory Rate: 20 bpm SpO2: 97% Temperature: 36.7 (C) / 98.1 (F) We ight: 242 lbs Code: 83096-8 11/22/2021 Blood Pressure 1: 118/80 Code: 8480-6 Heart Rate 1: 84 bpm Respiratory Rate: 20 bpm SpO2: 99% Temperature: 36.3 (C) / 97.4 (F) 11/21/2021 Blood Pressure 1: 132/80 Code: 8480-6 Heart Rate 1: 98 bpm Respiratory Rate: 20 bpm SpO2: 99% Weight: 238 lbs Code: 56458 -7 11/09/2021 Blood Pressure 1: 136/86 Code: 8480-6 Heart Rate 1: 68 bpm Respiratory Rate: 20 bpm SpO2: 95% Temperature: 36.4 (C) / 97.5 (F) We ight: 244 lbs Code: 65942-9 10/31/2021 Blood Pressure 1: 128/80 Code: 8480-6 Heart Rate 1: 80 bpm Respiratory Rate: 28 bpm SpO2: 93% Temperature: 38.0 (C) / 100. 4 (F) 10/30/2021 Blood Pressure 1: 136/82 Code: 8480-6 Heart Rate 1: 120 bpm Respiratory Rate: 24 bpm SpO2: 95% Temperature: 38.0 (C) / 100. 4 (F) 09/05/2021 Blood Pressure 1: 118/84 Code: 8480-6 BMI: 38.5 Code: 88325-1 Heart Rate 1: 72 bpm Height: 5'7" Code: 8302-2 Respiratory Rate: 20 bpm SpO2: 95% Temperature: 36.3 (C) / 97.4 (F) Weight: 246 lbs Code: 76945-1 08/24/2021 Blood Pressure 1: 132/84 Code: 8480-6 Heart Rate 1: 76 bpm Respiratory Rate: 19 bpm SpO2: 98% Temperature: 36.7 (C) / 98.1 (F) We ight: Code: 68007-7 03/01/2021 Blood Pressure 1: 90/52 Code: 8480-6 Heart Rate 1: 66 bpm Respiratory Rate: 22 bpm SpO2: 97% 02/08/2021 Blood Pressure 1: 132/75 Code: 8480-6 Heart Rate 1: 74 bpm Respiratory Rate: 18 bpm SpO2: 98% Temperature: 36.3 (C) / 97.3 (F) We ight: 247 lbs Code: 26211-1 01/19/2021 Blood Pressure 1: 126/76 Code: 8480-6 Heart Rate 1: 76 bpm Respiratory Rate: 20 bpm SpO2: 98% Temperature: 37.1 (C) / 98.8 (F) We ight: 244 lbs Code: 61413-9 01/03/2021 Blood Pressure 1: 124/64 Code: 8480-6 BMI: 38.5 Code: 01700-5 Heart Rate 1: 76 bpm Height: 5'7" Code: 8302-2 Respiratory Rate: 20 bpm SpO2: 96% Temperature: 36.4 (C) / 97.6 (F) Weight: 246 lbs Code: 72886-4 11/29/2020 Blood Pressure 1: 119/68 Code: 8480-6 Heart Rate 1: 73 bpm Respiratory Rate: 20 bpm SpO2: 95% Temperature: 36.1 (C) / 96.9 (F) We ight: 245 lbs Code: 60934-7 09/29/2020 Blood Pressure 1: 136/79 Code: 8480-6 Heart Rate 1: 67 bpm Respiratory Rate: 15 bpm SpO2: 98% Temperature: 36.2 (C) / 97.1 (F) We ight: 237 lbs Code: 93641-2 09/19/2020 Blood Pressure 1: 135/82 Code: 8480-6 Heart Rate 1: 76 bpm Respiratory Rate: 17 bpm SpO2: 96% Temperature: 36.6 (C) / 97.8 (F) We ight: 238 lbs Code: 31129-2 08/10/2020 Blood Pressure 1: 126/82 Code: 8480-6 Heart Rate 1: 60 bpm Respiratory Rate: 20 bpm SpO2: 96% Temperature: 36.3 (C) / 97.3 (F) We ight: 238 lbs Code: 14083-5 08/01/2020 Temperature: 36.6 (C) / 97.8 (F) 07/13/2020 Blood Pressure 1: 132/80 Code: 8480-6 Heart Rate 1: 76 bpm Respiratory Rate: 20 bpm SpO2: 97% Temperature: 36.2 (C) / 97.2 (F) We ight: 228 lbs Code: 53989-6 07/05/2020 Temperature: 35.9 (C) / 96.7 (F) 06/22/2020 Blood Pressure 1: 134/82 Code: 8480-6 Heart Rate 1: 60 bpm Respiratory Rate: 20 bpm SpO2: 96% Temperature: 36.4 (C) / 97.6 (F) We ight: 235 lbs Code: 06406-1 05/17/2020 Blood Pressure 1: 141/72 Code: 8480-6 Heart Rate 1: 78 bpm Respiratory Rate: 16 bpm SpO2: 98% Temperature: 36.3 (C) / 97.3 (F) We ight: 232 lbs Code: 54602-4 03/14/2020 Blood Pressure 1: 126/92 Code: 8480-6 Heart Rate 1: 72 bpm Respiratory Rate: 22 bpm SpO2: 96% Temperature: 36.3 (C) / 97.4 (F) We ight: 225 lbs Code: 30189-6 03/07/2020 Blood Pressure 1: 124/86 Code: 8480-6 Heart Rate 1: 72 bpm Respiratory Rate: 24 bpm SpO2: 93% Temperature: 36.2 (C) / 97.1 (F) We ight: 227 lbs Code: 39514-4 12/21/2019 Blood Pressure 1: 114/72 Code: 8480-6 BMI: 36.2 Code: 94880-3 Heart Rate 1: 60 bpm Height: 5'7" Code: 8302-2 Respiratory Rate: 20 bpm SpO2: 97% Temperature: 36.7 (C) / 98.1 (F) Weight: 231 lbs Code: 09546-4 09/02/2019 Blood Pressure 1: 138/85 Code: 8480-6 Heart Rate 1: 76 bpm Respiratory Rate: 20 bpm SpO2: 96% Temperature: 36.3 (C) / 97.3 (F) We ight: 226 lbs Code: 09757-0 07/09/2019 Blood Pressure 1: 123/63 Code: 8480-6 BMI: 34.9 Code: 22220-0 Heart Rate 1: 64 bpm Height: 5'7" Code: 8302-2 Respiratory Rate: 17 bpm SpO2: 97% Temperature: 37.0 (C) / 98.6 (F) Weight: 223 lbs Code: 06904-5 04/15/2019 Blood Pressure 1: 110/82 Code: 8480-6 Heart Rate 1: 66 bpm SpO2: 98% Temperature: 36.1 (C) / 96.9 (F) Weight: 223 lbs Code: 73639-6 04/07/2019 Blood Pressure 1: 132/80 Code: 8480-6 Heart Rate 1: 68 bpm Temperature: 36.9 (C) / 98.4 (F) Weight: 222 lbs Code: 53574-3 03/25/2019 Blood Pressure 1: 108/70 Code: 8480-6 Heart Rate 1: 64 bpm Respiratory Rate: 20 bpm SpO2: 96% Temperature: 36.2 (C) / 97.2 (F) We ight: 221 lbs Code: 15581-7 03/18/2019 Blood Pressure 1: 138/82 Code: 8480-6 Heart Rate 1: 74 bpm SpO2: 99% Temperature: 36.1 (C) / 96.9 (F) Weight: 223 lbs Code: 69973-9 01/26/2019 Blood Pressure 1: 138/90 Code: 8480-6 Heart Rate 1: 68 bpm SpO2: 96% Temperature: 35.9 (C) / 96.7 (F) Weight: 227 lbs Code: 71071-3 01/08/2019 Blood Pressure 1: 134/78 Code: 8480-6 BMI: 36.8 Code: 35964-6 Heart Rate 1: 76 bpm Height: 5'7" Code: 8302-2 SpO2: 93% Temperature: 3 6.4 (C) / 97.6 (F) Weight: 235 lbs Code: 25501-7 01/06/2019 Blood Pressure 1: 116/80 Code: 8480-6 Heart Rate 1: 72 bpm Respiratory Rate: 20 bpm SpO2: 98% Temperature: 36.5 (C) / 97.7 (F) We ight: 232 lbs Code: 08003-7 12/11/2018 Blood Pressure 1: 120/82 Code: 8480-6 BMI: 36.2 Code: 11725-6 Heart Rate 1: 67 bpm Height: 5'7" Code: 8302-2 Respiratory Rate: 18 bpm SpO2: 96% Temperature: 35.9 (C) / 96.7 (F) Weight: 231 lbs Code: 17913-1 10/30/2018 Blood Pressure 1: 126/82 Code: 8480-6 Heart Rate 1: 80 bpm Respiratory Rate: 20 bpm SpO2: 96% Temperature: 36.8 (C) / 98.3 (F) We ight: 228 lbs Code: 23593-1 10/07/2018 Blood Pressure 1: 130/90 Code: 8480-6 Heart Rate 1: 76 bpm Respiratory Rate: 24 bpm SpO2: 97% Temperature: 36.0 (C) / 96.8 (F) We ight: 229 lbs Code: 32915-3 06/23/2018 Blood Pressure 1: 132/80 Code: 8480-6 Heart Rate 1: 72 bpm Respiratory Rate: 20 bpm SpO2: 98% Temperature: 36.7 (C) / 98.0 (F) We ight: 233 lbs Code: 87818-6 01/16/2018 Blood Pressure 1: 116/82 Code: 8480-6 Heart Rate 1: 72 bpm Respiratory Rate: 20 bpm SpO2: 96% Temperature: 36.9 (C) / 98.5 (F) We ight: 230 lbs Code: 07632-5 10/16/2017 Blood Pressure 1: 116/74 Code: 8480-6 BMI: 35.1 Code: 54311-5 Heart Rate 1: 76 bpm Height: 5'7" Code: 8302-2 Respiratory Rate: 20 bpm SpO2: 98% Temperature: 36.7 (C) / 98.1 (F) Weight: 224 lbs Code: 56359-1 09/12/2017 Blood Pressure 1: 124/78 Code: 8480-6 BMI: 34.6 Code: 27893-6 Heart Rate 1: 84 bpm Height: 5'7" Code: 8302-2 Respiratory Rate: 20 bpm SpO2: 95% Temperature: 36.6 (C) / 97.8 (F) Weight: 221 lbs Code: 52638-6 08/20/2017 Blood Pressure 1: 126/78 Code: 8480-6 Heart Rate 1: 92 bpm Height: 5'7" Code: 8302-2 Respiratory Rate: 20 bpm SpO2: 96% Temperature: 36 .9 (C) / 98.5 (F) 08/13/2017 Blood Pressure 1: 124/80 Code: 8480-6 BMI: 34.8 Code: 35041-1 Heart Rate 1: 80 bpm Height: 5'7" Code: 8302-2 Respiratory Rate: 20 bpm SpO2: 96% Temperature: 36.7 (C) / 98.0 (F) Weight: 222 lbs Code: 44405-2 07/29/2017 Blood Pressure 1: 114/70 Code: 8480-6 BMI: 34.5 Code: 36963-2 Heart Rate 1: 76 bpm Height: 5'7" Code: 8302-2 Respiratory Rate: 20 bpm SpO2: 97% Temperature: 36.9 (C) / 98.4 (F) Weight: 220 lbs Code: 47646-2 07/25/2017 Blood Pressure 1: 142/76 Code: 8480-6 BMI: 34.9 Code: 71220-6 Heart Rate 1: 92 bpm Height: 5'7" Code: 8302-2 Respiratory Rate: 18 bpm SpO2: 96% Temperature: 36.7 (C) / 98.1 (F) Weight: 223 lbs Code: 22514-6 06/10/2017 Blood Pressure 1: 136/82 Code: 8480-6 BMI: 34.3 Code: 73430-4 Heart Rate 1: 68 bpm Height: 5'7" Code: 8302-2 Respiratory Rate: 20 bpm SpO2: 96% Temperature: 36.7 (C) / 98.0 (F) Weight: 219 lbs Code: 33295-4 05/28/2017 Blood Pressure 1: 136/70 Code: 8480-6 BMI: 34.1 Code: 99976-7 Heart Rate 1: 84 bpm Height: 5'7" Code: 8302-2 Respiratory Rate: 20 bpm SpO2: 95% Temperature: 35.9 (C) / 96.6 (F) Weight: 218 lbs Code: 04223-4 04/04/2017 Blood Pressure 1: 122/78 Code: 8480-6 BMI: 33.4 Code: 60913-7 Heart Rate 1: 68 bpm Height: 5'7" Code: 8302-2 Respiratory Rate: 20 bpm SpO2: 96% Temperature: 36.7 (C) / 98.0 (F) Weight: 213 lbs Code: 42169-5 11/28/2016 Blood Pressure 1: 114/82 Code: 8480-6 BMI: 33.7 Code: 23166-1 Heart Rate 1: 72 bpm Height: 5'7" Code: 8302-2 Respiratory Rate: 20 bpm SpO2: 98% Temperature: 36.4 (C) / 97.6 (F) Weight: 215 lbs Code: 42601-0 06/05/2016 Blood Pressure 1: 104/68 Code: 8480-6 BMI: 33.7 Code: 00675-8 Heart Rate 1: 68 bpm Height: 5'7" Code: 8302-2 Respiratory Rate: 20 bpm SpO2: 96% Temperature: 36.8 (C) / 98.2 (F) Weight: 215 lbs Code: 17195-1 11/08/2015 Blood Pressure 1: 122/70 Code: 8480-6 BMI: 33.8 Code: 78376-8 Heart Rate 1: 80 bpm Height: 5'7" Code: 8302-2 Respiratory Rate: 20 bpm Temperatu re: 36.8 (C) / 98.2 (F) Weight: 216 lbs Code: 08640-0 07/19/2015 Blood Pressure 1: 122/70 Code: 8480-6 BMI: 33.0 Code: 21455-2 Heart Rate 1: 80 bpm Height: 5'7" Code: 8302-2 Respiratory Rate: 18 bpm Temperatu re: 35.9 (C) / 96.6 (F) Weight: 211 lbs Code: 27734-1 03/28/2015 Blood Pressure 1: 124/70 Code: 8480-6 BMI: 31.8 Code: 13649-4 Heart Rate 1: 72 bpm Height: 5'7" Code: 8302-2 Respiratory Rate: 20 bpm Temperatu re: 36.8 (C) / 98.2 (F) Weight: 203 lbs Code: 74396-2 02/08/2015 Blood Pressure 1: 98/58 Code: 8480-6 BMI: 32.1 C ode: 36551-4 Heart Rate 1: 84 bpm Height: 5'7" Code: 8302-2 Respiratory Rate: 20 bpm Temperatu re: 36.7 (C) / 98.0 (F) Weight: 205 lbs Code: 49998-5 01/11/2015 Blood Pressure 1: 118/78 Code: 8480-6 BMI: 32.1 Code: 68305-2 Heart Rate 1: 84 bpm Height: 5'7" Code: 8302-2 Respiratory Rate: 20 bpm Temperatu re: 36.6 (C) / 97.9 (F) Weight: 205 lbs Code: 41090-2 11/24/2014 Blood Pressure 1: 124/80 Code: 8480-6 BMI: 32.0 Code: 38051-5 Heart Rate 1: 76 bpm Height: 5'7" Code: 8302-2 Respiratory Rate: 20 bpm Temperatu re: 36.2 (C) / 97.1 (F) Weight: 204 lbs Code: 59333-1 11/19/2014 Blood Pressure 1: 132/78 Code: 8480-6 BMI: 32.7 Code: 64169-7 Heart Rate 1: 68 bpm Height: 5'7" Code: 8302-2 Respiratory Rate: 20 bpm SpO2: 98% Temperature: 36.7 (C) / 98.0 (F) Weight: 209 lbs Code: 47274-5 10/27/2014 Blood Pressure 1: 118/76 Code: 8480-6 BMI: 32.6 Code: 40629-2 Heart Rate 1: 64 bpm Height: 5'7" Code: 8302-2 Respiratory Rate: 20 bpm Temperatu re: 36.7 (C) / 98.0 (F) Weight: 208 lbs Code: 53459-1 09/23/2014 Blood Pressure 1: 118/68 Code: 8480-6 BMI: 34.3 Code: 70985-4 Heart Rate 1: 78 bpm Height: 5'7" Code: 8302-2 Respiratory Rate: 22 bpm Temperatu re: 36.4 (C) / 97.6 (F) Weight: 219 lbs Code: 59640-5 07/28/2014 Blood Pressure 1: 126/80 Code: 8480-6 BMI: 33.5 Code: 13858-1 Heart Rate 1: 76 bpm Height: 5'7" Code: 8302-2 Respiratory Rate: 20 bpm Temperatu re: 36.4 (C) / 97.6 (F) Weight: 214 lbs Code: 63364-2 03/30/2014 Blood Pressure 1: 128/80 Code: 8480-6 BMI: 35.2 Code: 58609-9 Heart Rate 1: 88 bpm Height: 5'7" Code: 8302-2 Respiratory Rate: 20 bpm Temperatu re: 36.4 (C) / 97.6 (F) Weight: 225 lbs Code: 37431-1 11/24/2013 Blood Pressure 1: 124/82 Code: 8480-6 BMI: 35.6 Code: 94437-0 Heart Rate 1: 80 bpm Height: 5'7" Code: 8302-2 Respiratory Rate: 22 bpm Temperatu re: 36.2 (C) / 97.1 (F) Weight: 227 lbs Code: 10034-3 08/25/2013 Blood Pressure 1: 128/80 Code: 8480-6 BMI: 37.4 Code: 06678-4 Heart Rate 1: 76 bpm Height: 5'7" Code: 8302-2 Respiratory Rate: 20 bpm Temperatu re: 36.6 (C) / 97.9 (F) Weight: 239 lbs Code: 67827-6 06/29/2013 Blood Pressure 1: 106/78 Code: 8480-6 BMI: 38.1 Code: 02770-2 Heart Rate 1: 80 bpm Height: 5'7" Code: 8302-2 Respiratory Rate: 20 bpm Temperatu re: 36.6 (C) / 97.9 (F) Weight: 243 lbs Code: 91798-7 05/26/2013 Blood Pressure 1: 122/80 Code: 8480-6 BMI: 39.3 Code: 96275-7 Heart Rate 1: 80 bpm Height: 5'7" Code: 8302-2 Respiratory Rate: 20 bpm Temperatu re: 36.9 (C) / 98.4 (F) Weight: 251 lbs Code: 76761-1 05/06/2013 Blood Pressure 1: 128/78 Code: 8480-6 BMI: 39.2 Code: 36620-2 Heart Rate 1: 76 bpm Height: 5'7" Code: 8302-2 Respiratory Rate: 22 bpm Temperatu re: 35.8 (C) / 96.4 (F) Weight: 250 lbs Code: 65663-0 04/23/2013 Blood Pressure 1: 132/92 Code: 8480-6 BMI: 39.6 Code: 87808-5 Heart Rate 1: 88 bpm Height: 5'7" Code: 8302-2 Respiratory Rate: 28 bpm SpO2: 97% Temperature: 36.5 (C) / 97.7 (F) Weight: 253 lbs Code: 38929-4 03/31/2013 Blood Pressure 1: 122/80 Code: 8480-6 BMI: 39.0 Code: 63727-9 Heart Rate 1: 84 bpm Height: 5'7" Code: 8302-2 Respiratory Rate: 20 bpm Temperatu re: 36.6 (C) / 97.8 (F) Weight: 249 lbs Code: 54932-1 03/05/2013 Blood Pressure 1: 120/80 Code: 8480-6 BMI: 39.2 Code: 25467-1 Heart Rate 1: 60 bpm Height: 5'7" Code: 8302-2 Respiratory Rate: 22 bpm Temperatu re: 35.9 (C) / 96.6 (F) Weight: 250 lbs Code: 47404-5 02/04/2013 Blood Pressure 1: 124/80 Code: 8480-6 BMI: 38.4 Code: 44949-2 Heart Rate 1: 80 bpm Height: 5'7" Code: 8302-2 Respiratory Rate: 20 bpm Temperatu re: 36.4 (C) / 97.6 (F) Weight: 245 lbs Code: 97429-4 11/27/2012 Blood Pressure 1: 127/83 Code: 8480-6 Te mperature: 36.1 (C) / 96.9 (F) Weight: 243 lbs 2 oz Code: 89101-8 11/11/2012 Blood Pressure 1: 126/82 Code: 8480-6 BMI: 37.4 Code: 18595-6 Heart Rate 1: 80 bpm Height: 5'7" Code: 8302-2 Respiratory Rate: 20 bpm Temperatu re: 36.8 (C) / 98.2 (F) Weight: 239 lbs Code: 75995-8 10/20/2012 Blood Pressure 1: 114/80 Code: 8480-6 BMI: 37.1 Code: 88371-8 Heart Rate 1: 104 bpm Height: 5'7" Code: 8302-2 Respiratory Rate: 20 bpm Temperatu re: 36.9 (C) / 98.4 (F) Weight: 237 lbs Code: 41184-8 09/03/2012 Blood Pressure 1: 118/72 Code: 8480-6 BMI: 37.3 Code: 60749-6 Heart Rate 1: 70 bpm Height: 5'7" Code: 8302-2 Temperature: 35.6 (C) / 96.0 (F) Weight: 238 lbs Code: 46427-3 07/23/2012 Blood Pressure 1: 124/78 Code: 8480-6 BMI: 36.8 Code: 10631-6 Heart Rate 1: 68 bpm Height: 5'7" Code: 8302-2 Temperature: 35.6 (C) / 96.0 (F) Weight: 235 lbs Code: 82280-3 05/20/2012 Blood Pressure 1: 112/70 Code: 8480-6 BMI: 37.1 Code: 31082-7 Heart Rate 1: 76 bpm Height: 5'7" Code: 8302-2 Respiratory Rate: 20 bpm Temperatu re: 36.7 (C) / 98.1 (F) Weight: 237 lbs Code: 92895-1 04/04/2012 Blood Pressure 1: 110/64 Code: 8480-6 BMI: 37.1 Code: 12271-4 Heart Rate 1: 68 bpm Height: 5'7" Code: 8302-2 Temperature: 36.1 (C) / 97.0 (F) Weight: 237 lbs Code: 54357-2 02/20/2012 Blood Pressure 1: 136/78 Code: 8480-6 BMI: 37.1 Code: 77312-0 Heart Rate 1: 72 bpm Height: 5'7" Code: 8302-2 Respiratory Rate: 20 bpm Temperatu re: 36.7 (C) / 98.0 (F) Weight: 237 lbs Code: 45138-3 01/02/2012 Blood Pressure 1: 122/70 Code: 8480-6 BMI: 37.1 Code: 62561-0 Heart Rate 1: 76 bpm Height: 5'7" Code: 8302-2 Respiratory Rate: 20 bpm Temperatu re: 37.0 (C) / 98.6 (F) Weight: 237 lbs Code: 96745-0 09/04/2011 Blood Pressure 1: 120/84 Code: 8480-6 BMI: 35.4 Code: 17463-1 Heart Rate 1: 68 bpm Height: 5'7" Code: 8302-2 Temperature: 30.0 (C) / 86.0 (F) Weight: 226 lbs Code: 95800-4 08/14/2011 Blood Pressure 1: 120/82 Code: 8480-6 BMI: 36.5 Code: 45938-6 Heart Rate 1: 80 bpm Height: 5'7" Code: 8302-2 Temperature: 36.6 (C) / 97.8 (F) Weight: 233 lbs Code: 98411-8 07/31/2011 Blood Pressure 1: 138/86 Code: 8480-6 BMI: 37.0 Code: 30803-4 Heart Rate 1: 94 bpm Height: 5'7" Code: 8302-2 Temperature: 35.4 (C) / 95.7 (F) Weight: 236 lbs Code: 95565-4 07/25/2011 Blood Pressure 1: 128/80 Code: 8480-6 BMI: 37.0 Code: 33319-0 Heart Rate 1: 80 bpm Height: 5'7" Code: 8302-2 Temperature: 35.6 (C) / 96.0 (F) Weight: 236 lbs Code: 94302-8 07/12/2011 Blood Pressure 1: 132/80 Code: 8480-6 BMI: 37.0 Code: 96993-2 Heart Rate 1: 96 bpm Height: 5'7" Code: 8302-2 Respiratory Rate: 20 bpm Temperatu re: 36.3 (C) / 97.3 (F) Weight: 236 lbs Code: 72748-8 05/09/2011 Blood Pressure 1: 106/78 Code: 8480-6 BMI: 36.6 Code: 93406-1 Heart Rate 1: 72 bpm Height: 5'7" Code: 8302-2 Respiratory Rate: 20 bpm Temperatu re: 36.4 (C) / 97.6 (F) Weight: 234 lbs Code: 50526-4 05/02/2011 Blood Pressure 1: 96/72 Code: 8480-6 BMI: 36.6 C ode: 54134-1 Heart Rate 1: 108 bpm Height: 5'7" Code: 8302-2 Respiratory Rate: 24 bpm Temperatu re: 36.7 (C) / 98.0 (F) Weight: 234 lbs Code: 36828-4 04/25/2011 Blood Pressure 1: 120/72 Code: 8480-6 BMI: 36.5 Code: 43394-6 Heart Rate 1: 70 bpm Height: 5'7" Code: 8302-2 Temperature: 36.7 (C) / 98.0 (F) Weight: 233 lbs Code: 43794-1 04/04/2011 Blood Pressure 1: 126/92 Code: 8480-6 BMI: 36.5 Code: 79006-8 Heart Rate 1: 84 bpm Height: 5'7" Code: 8302-2 Respiratory Rate: 20 bpm Temperatu re: 36.2 (C) / 97.2 (F) Weight: 233 lbs Code: 36287-1 03/01/2011 Blood Pressure 1: 132/78 Code: 8480-6 Heart Rate 1: 88 bpm Temperature: 36.8 (C) / 98.2 (F) Weight: 231 lbs Code: 32116-7 01/04/2011 Blood Pressure 1: 122/78 Code: 8480-6 BMI: 37.0 Code: 37917-5 Heart Rate 1: 80 bpm Height: 5'7" Code: 8302-2 Temperature: 37.0 (C) / 98.6 (F) Weight: 236 lbs Code: 76448-9 12/07/2010 Blood Pressure 1: 132/92 Code: 8480-6 Heart Rate 1: 98 bpm Temperature: 36.2 (C) / 97.2 (F) Weight: 237 lbs Code: 45366-1 10/09/2010 Blood Pressure 1: 128/80 Code: 8480-6 Heart Rate 1: 72 bpm Temperature: 36.5 (C) / 97.7 (F) Weight: 244 lbs Code: 72396-6 08/07/2010 Blood Pressure 1: 114/80 Code: 8480-6 Heart Rate 1: 72 bpm Temperature: 36.2 (C) / 97.1 (F) Weight: 245 lbs Code: 64136-8 06/06/2010 Blood Pressure 1: 132/86 Code: 8480-6 Heart Rate 1: 80 bpm Temperature: 36.8 (C) / 98.2 (F) Weight: 242 lbs Code: 84107-0 04/12/2010 Blood Pressure 1: 126/82 Code: 8480-6 Heart Rate 1: 72 bpm Temperature: 36.8 (C) / 98.2 (F) Weight: 237 lbs Code: 08965-9 03/20/2010 Blood Pressure 1: 124/78 Code: 8480-6 Heart Rate 1: 76 bpm Temperature: 36.1 (C) / 97.0 (F) Weight: 239 lbs Code: 72886-1 01/30/2010 Blood Pressure 1: 118/80 Code: 8480-6 Heart Rate 1: 84 bpm Temperature: 37.1 (C) / 98.7 (F) Weight: 239 lbs Code: 68898-6 01/09/2010 Blood Pressure 1: 120/72 Code: 8480-6 BMI: 36.8 Code: 09164-0 Heart Rate 1: 80 bpm Height: 5'7" Code: 8302-2 Temperature: 36.1 (C) / 97.0 (F) Weight: 235 lbs Code: 14531-3 11/07/2009 Blood Pressure 1: 140/36 Cod e: 8480-6 10/26/2009 Blood Pressure 1: 126/82 Code: 8480-6 BMI: 36.9 Code: 09891-2 Heart Rate 1: 84 bpm Height: 5'7" Code: 8302-2 Temperature: 36.5 (C) / 97.7 (F) Weight: 234 lbs Code: 40489-5 10/17/2009 Blood Pressure 1: 140/88 Code: 8480-6 BMI: 36.3 Code: 82200-0 Heart Rate 1: 88 bpm Height: 5'7" Code: 8302-2 Temperature: 36.7 (C) / 98.0 (F) Weight: 232 lbs Code: 17209-3 10/04/2009 Blood Pressure 1: 140/90 Code: 8480-6 BMI: 36.3 Code: 55278-1 Heart Rate 1: 84 bpm Height: 5'7" Code: 8302-2 Temperature: 36.4 (C) / 97.6 (F) Weight: 232 lbs Code: 13826-0 09/21/2009 Blood Pressure 1: 136/82 Code: 8480-6 BMI: 36.3 Code: 59358-6 Heart Rate 1: 88 bpm Height: 5'7" Code: 8302-2 Temperature: 35.8 (C) / 96.4 (F) Weight: 232 lbs Code: 27262-9 Functional Status No Functional Status data Reason [...] cystitis[ICD10: N30.00] Marlene MORILLOLINE TracyPaige OTF DO [facility] [address] [place] [phone] CPT-4: 57396 09/05/2022 ([id number]) OFFICE/OUTPATIENT VISIT EST Diagnosis: Degeneration of lumbar or lumbosacral intervertebral disc[ICD10: M51.37] Diagnosis: Cervicalgia[ICD10: M54.2] Marlene MORILLOLINE TracyPaige DIONICIO NDEDeejay DO [facility] [address] [place] [phone] CPT-4: 61219 08/30/2022 ([id number]) OFFICE/OUTPATIENT VISIT EST Diagnosis: Hypothyroidism[ICD10: E03.9] Diagnosis: Essential (primary) hypertension[ICD10: I10] Diagnosis: Mixed hyperlipidemia[ICD10: E78.2] Diagnosis: Stress at home[ICD10: F43.9] Jayna Greenbergmarialuisa GUTIERREZ TracyPaige DIONICIONDER DO [facility] [address] [place] [phone] CPT-4: 50471 08/07/2022 ([id number]) OFFICE/OUTPATIENT VISIT EST Diagnosis: Acute cystitis[ICD10: N30.00] Marlene MORILLOLINE TracyPaige JANISER DO [employer] [address] [place] [address] CPT-4: 81079 06/29/2022 ([id number]) OFFICE/OUTPATIENT VISIT EST Diagnosis: Depression[ICD10: F32.A] Diagnosis: Hypothyroidism[ICD10: E03.9] Jayna Dioniciomarialuisa GUTIERREZ TracyPaige DIONICIONDER DO [employer] [address] [place] [address] CPT-4: 95835 05/28/2022 ([id number]) OFFICE/OUTPATIENT VISIT EST Diagnosis: Depression[ICD10: F32.A] Diagnosis: Fatigue[ICD10: R53.83] Diagnosis: Hypothyroidism[ICD10: E03.9] Diagnosis: Hyperglycemia[ICD10: R73.9] Jayna GUTIERREZ S. 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] Jayna VANESSA [address] [address] CPT-4: 66221 02/15/2022 ([id number]) Annual depression screening, 15 minutes Diagnosis: Encounter for general adult medical examination without abnormal findings[ICD10: Z00.00] Diagnosis: Essential (primary) hypertension[ICD10: I10] Diagnosis: Mixed hyperlipidemia[ICD10: E78.2] Diagnosis: Hypothyroidism, unspecified[ICD10: E03.9] Diagnosis: Chronic obstructive pulmonary disease, unspecified[ICD10: J44.9] Jayna VANESSA [address] [address] CPT-4: G0444 02/06/2022 ([id number]) OFFICE/OUTPATIENT VISIT EST Diagnosis: 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] Diagnosis: Vision changes[ICD10: H53.9] Latasha Anand JAYNA VANESSA [address] [address] CPT-4: 40417 02/01/2022 ([id number]) OFFICE/OUTPATIENT VISIT EST Diagnosis: Diarrhea[ICD10: R19.7] Diagnosis: Cough[ICD10: R05.9] Jayna Dionicioleydaapolinar MORILLOJAYNA TracyPaige OTF [address] [address] CPT-4: 73470 11/30/19 ([id number]) OFFICE/OUTPATIENT VISIT EST Diagnosis: Post-viral cough syndrome[ICD10: R05.8] Diagnosis: Otalgia of both ears[ICD10: H92.03] Diagnosis: Diarrhea[ICD10: R19.7] Jaynaparam GUTIERREZ TracyPaige BIANCA Villalba DO [address] [address] CPT-4: 84859 11/22/2021 ([id number]) OFFICE/OUTPATIENT VISIT EST Diagnosis: Diarrhea of presumed infectious origin[ICD10: R19.7] Diagnosis: Altered taste[ICD10: R43.2] Diagnosis: Chronic bronchitis[ICD10: J42] Diagnosis: History of recent pneumonia[ICD10: Z87.01] Latasha MORILLOLINE TracyPaige OTF SAEZ [address] [address] CPT- 4: 35783 11/21/2021 ([id number]) OFFICE/OUTPATIENT VISIT EST Diagnosis: Serous otitis media[ICD10: H65.90] Diagnosis: Postnasal drip[ICD10: R09.82] Diagnosis: Pneumonia[ICD10: J18.9] Jayna GUTIERREZ TracyPaige JANIS APOLINAR DO [address] [address] CPT-4: 58664 11/09/2021 ([id number]) NO CHARGE Diagnosis: Pneumonia[ICD10: J18.9] Diagnosis: Respiratory distress[ICD10: R06.03] Jayna KENNEY TracyPaige OTF DO [address] [address] CPT-4: 09375 10/31/2021 ([id number]) OFFICE/OUTPATIENT VISIT EST Diagnosis: Vertigo[ICD10: R42] Diagnosis: Nausea[ICD10: R11.0] Diagnosis: Pneumonia[ICD10: J18.9] Jayna BRUCE [address] [address] CPT-4: 35718 10/30/2021 ([id number]) OFFICE/OUTPATIENT VISIT EST Diagnosis: Cervicalgia[ICD10: M54.2] Jayna MAGANA[address] [address] CPT-4: 15512 09/05/2021 ([id number]) OFFICE/OUTPATIENT VISIT EST Diagnosis: 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] Diagnosis: Seronegative rheumatoid arthritis[ICD10: M06.00] Latasha Kika JAYNA VANESSA [address] [address] CPT- 4: 44602 08/24/2021 ([id number]) OFFICE/OUTPATIENT VISIT EST Diagnosis: Upper respiratory infection[ICD10: J06.9] Diagnosis: Contact with and (suspected) exposure to other viral communicable diseases[ICD10: Z20.828] Latasha Kika JAYNA VANESSA [address] [address] CPT-4: 66957 07/04/2021 ([id number]) NURSE/OUTPATIENT VISIT EST Diagnosis: FLU VACCINE[ICD10: Z23] Jayna BRUCE [address] [address] CPT-4: 67248 03/29/2021 ([id number]) OFFICE/OUTPATIENT VISIT EST Diagnosis: Vasovagal episode[ICD10: R55] Diagnosis: Orthostatic hypotension[ICD10: I95.1] Latasha Kika GERBER Daniel VANESSA [address] [address] CPT-4: 54439 03/01/2021 ([id number]) OFFICE/OUTPATIENT VISIT EST Diagnosis: Sebaceous cyst of right axilla[ICD10: L72.3] Latasha VANESSA DO [address] [address] CPT- 4: 48255 02/08/2021 ([id number]) OFFICE/OUTPATIENT VISIT EST Diagnosis: Contact dermatitis[ICD10: L25.9] Jayna VANESSA DO [address] [address] CPT-4: 59326 01/19/2021 ([id number]) OFFICE/OUTPATIENT VISIT EST Diagnosis: Upper respiratory infection[ICD10: J06.9] Diagnosis: COPD exacerbation[ICD10: J44.1] Latasha VANESSA DO [address] [address] CPT-4: 52073 11/29/2020 ([id number]) OFFICE/OUTPATIENT VISIT EST Diagnosis: Sinusitis[ICD10: J32.9] Diagnosis: Acute pansinusitis, recurrence not specified[ICD10: J01.40] Latasha VANESSA DO [address] [address] CPT-4: 31474 09/29/2020 OFFICE/OUTPATIENT VISIT EST Diagnosis: Other seasonal allergic rhinitis[ICD10: J30.2] Diagnosis: Chronic bronchitis[ICD10: J42] Diagnosis: 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] Diagnosis: Middle ear effusion[ICD10: H65.90] Diagnosis: Fluid level behind tympanic membrane of both ears[ICD10: H65.93] Latasha VANESSA DO [address] [address] CPT-4: 47226 09/19/2020 ([id number]) OFFICE/OUTPATIENT VISIT EST Diagnosis: Right-sided tinnitus[ICD10: H93.11] Jayna Otf VANESSA DO [address] [address] CPT-4: 28847 08/10/2020 ([id number]) OFFICE/OUTPATIENT VISIT EST Diagnosis: Dysfunction of right eustachian tube[ICD10: H69.81] Diagnosis: Right-sided tinnitus[ICD10: H93.11] [facility] [address] [place] [address] CPT-4: 45791 2020 ([id number]) OFFICE/OUTPATIENT VISIT EST Diagnosis: Pyelonephritis[ICD10: N12] Diagnosis: Anemia[ICD10: D64.9] Diagnosis: Blood in stool[ICD10: K92.1] Jayna GREENBERGNDER DO [address] [address] CPT-4: 26471 07/13/2020 ([id number]) OFFICE/OUTPATIENT VISIT EST Diagnosis: Acute gastroenteritis[ICD10: K52.9] Jayna GREENBERGNDER [address] [address] CPT-4: 98259 07/05/2020 ([id number]) OFFICE/OUTPATIENT VISIT EST Diagnosis: Essential hypertension[ICD10: I10] Diagnosis: Hypothyroidism, unspecified[ICD10: E03.9] Diagnosis: Metabolic syndrome[ICD10: E88.81] Diagnosis: Mixed hyperlipidemia[ICD10: E78.2] Diagnosis: 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] Jayna GREENBERGNDER [address] [address] CPT- 4: 18592 06/22/2020 ([id number]) OFFICE/OUTPATIENT VISIT EST Diagnosis: Urinary tract infection[ICD10: N39.0] Jayna VILLARREALEMILIO BUZZ GREENBERGNDER DO [employer] [address] [place] [address] CPT-4: 89081 05/17/2020 ([id number]) OFFICE/OUTPATIENT VISIT EST Diagnosis: Right pulmonary embolus[ICD10: I26.99] Jaynaloli Vanessa NORRIS MARIA Daniel ORENDER DO [address] [address] CPT-4: 22875 03/14/2020 ([id number]) OFFICE/OUTPATIENT VISIT EST Diagnosis: COVID-19[ICD10: U07.1] Diagnosis: Pneumonia[ICD10: J18.9] Diagnosis: Dyspnea[ICD10: R06.00] Jayna Villalba DO [facility] [address] [place] [address] CPT-4: 95687 03/07/2020 ([id number]) OFFICE/OUTPATIENT VISIT EST Diagnosis: Upper respiratory infection[ICD10: J06.9] Genesis VANESSA [facility] [address] [place] [address] CPT-4: 18582 02/11/2020 ([id number]) OFFICE/OUTPATIENT VISIT EST Diagnosis: Dermatitis[ICD10: L30.9] Diagnosis: Urticaria[ICD10: L50.9] Jaynaparam Vanessa [facility] [address] [place] [address] CPT-4: 44478 09/29/2019 ([id number]) OFFICE/OUTPATIENT VISIT EST Diagnosis: Bone spur of right foot[ICD10: M77.51] Diagnosis: Recurrent UTI[ICD10: N39.0] Diagnosis: MRSA (methicillin resistant staph aureus) culture positive[ICD10: Z22.322] Jayna Vanessa [facility] [address] [place] [address] CPT-4: 60978 09/14/2019 ([id number]) NURSE/OUTPATIENT VISIT EST Diagnosis: Urinary tract infection[ICD10: N39.0] Jayna VANESSA [facility] [address] [place] [address] CPT-4: 81207 09/11/2019 ([id number]) NURSE/OUTPATIENT VISIT EST Diagnosis: Urinary tract infection, site not specified[ICD10: N39.0] Jayna VANESSA [facility] [address] [place] [address] CPT-4: 84808 09/08/2019 ([id number]) NURSE/OUTPATIENT VISIT EST Diagnosis: Urinary tract infection, site not specified[ICD10: N39.0] Jayna [facility] [address] [place] [address] CPT-4: 87209 09/07/2019 ([id number]) OFFICE/OUTPATIENT VISIT EST Diagnosis: Pelvic pain in female[ICD10: R10.2] Diagnosis: Urinary frequency[ICD10: R35.0] Genesis [facility] [address] [place] [address] CPT-4: 76333 09/02/2019 ([id number]) OFFICE/OUTPATIENT VISIT EST Diagnosis: Sinusitis[ICD10: J32.9] Genesis JIANG [facility] [address] [place] [address] CPT-4: 93716 07/09/2019 ([id number]) OFFICE/OUTPATIENT VISIT EST Diagnosis: UTI (urinary tract infection)[ICD10: N39.0] Diagnosis: FLU VACCINE[ICD10: Z23] Genesis [facility] [address] [place] [address] CPT-4: 80286 04/15/2019 ([id number]) OFFICE/OUTPATIENT VISIT EST Diagnosis: Pain in right leg[ICD10: M79.604] Genesis [facility] [address] [place] [address] CPT-4: 01346 04/07/2019 ([id number]) OFFICE/OUTPATIENT VISIT EST Diagnosis: Diverticulitis of large intestine without perforation or abscess without bleeding[ICD10: K57.32] Diagnosis: Cystitis[ICD10: N30.90] Jayna [facility] [address] [place] [address] CPT-4: 81008 03/25/2019 ([id number]) OFFICE/OUTPATIENT VISIT EST Diagnosis: Abdominal pain[ICD10: R10.9] Diagnosis: Cystitis[ICD10: N30.90] Jayna JIANG DO [address] [address] CPT-4: 94293 03/18/2019 ([id number]) OFFICE/OUTPATIENT VISIT EST Diagnosis: Diverticulitis of large intestine without perforation or abscess without bleeding[ICD10: K57.32] Diagnosis: Generalized abdominal pain[ICD10: R10.84] Diagnosis: Urinary tract infection, site not specified[ICD10: N39.0] Genesis VANESSA DO [address] [address] CPT-4: 57730 01/26/2019 ([id number]) OFFICE/OUTPATIENT VISIT EST Diagnosis: Mild intermittent asthma with (acute) exacerbation[ICD10: J45.21] Diagnosis: Allergic rhinitis due to pollen[ICD10: J30.1] Jayna VANESSA DO [address] [address] CPT- 4: 24014 01/08/2019 ([id number]) OFFICE/OUTPATIENT VISIT EST Diagnosis: Mild intermittent asthma with (acute) exacerbation[ICD10: J45.21] Diagnosis: URI, ACUTE[ICD10: J06.9] Diagnosis: Urinary tract infection, site not specified[ICD10: N39.0] Jayna VANESSA DO [address] [address] CPT-4: 09715 01/06/2019 ([id number]) OFFICE/OUTPATIENT VISIT EST Diagnosis: Benign paroxysmal vertigo, bilateral[ICD10: H81.13] Diagnosis: Migraine without aura, not intractable, without status migrainosus[ICD10: G43.009] Jayna VANESSA DO [address] [address] CPT-4: 57474 10/30/2018 ([id number]) OFFICE/OUTPATIENT VISIT EST Diagnosis: Acute bronchitis, unspecified[ICD10: J20.9] Diagnosis: Cough[ICD10: R05] Diagnosis: Other seasonal allergic rhinitis[ICD10: J30.2] Stacey Ping GREENBERGNDER DO [employer] [address] [place] [address] CPT- 4: 01718 10/07/2018 ([id number]) OFFICE/OUTPATIENT VISIT EST Diagnosis: Pain in unspecified joint[ICD10: M25.50] Diagnosis: Pain in right ankle and joints of right foot[ICD10: M25.571] Diagnosis: Other specified disorders of bone density and structure, unspecified site[ICD10: M85.80] Jayna GUTIERREZ Daniel GREENBERGNDER DO [employer] [address] [place] [address] CPT-4: 75667 06/23/2018 ([id number]) OFFICE/OUTPATIENT VISIT EST Diagnosis: Hypothyroidism, unspecified[ICD10: E03.9] Diagnosis: Mixed hyperlipidemia[ICD10: E78.2] Jayna ALVARENGA SPaige GREENBERGNDER DO [employer] [address] [place] [address] CPT-4: 02165 01/16/2018 ([id number]) OFFICE/OUTPATIENT VISIT EST Diagnosis: Cervicalgia[ICD10: M54.2] Genesis Francoisdi JAYNA Daniel GREENBERG NDER DO [employer] [address] [place] [address] CPT-4: 65578 10/16/2017 ([id number]) OFFICE/OUTPATIENT VISIT EST Diagnosis: Headache[ICD10: R51] Diagnosis: Dizziness and giddiness[ICD10: R42] Jayna KENNEY SPaige GREENBERGNDER DO [employer] [address] [place] [address] CPT-4: 94434 09/12/2017 OFFICE/OUTPATIENT VISIT EST Diagnosis: Cough[ICD10: R05] Genesis Fernández JAYNA TracyPaige DIONICIONDER DO [facility] [address] [place] [address] CPT-4: 92559 08/20/2017 ([id number]) OFFICE/OUTPATIENT VISIT EST Diagnosis: COUGH[ICD10: R05] Jayna GUTIERREZ TracyPaige ORENDER DO [employer] [address] [place] [address] CPT-4: 03671 08/13/19 ([id number]) OFFICE/OUTPATIENT VISIT EST Diagnosis: Acute bronchospasm[ICD10: J98.01] Jayna VANESSA DO [address] [address] CPT-4: 87127 07/29/2017 OFFICE/OUTPATIENT VISIT EST Diagnosis: Influenza due to identified novel influenza A virus with other respiratory manifestations[ICD10: J09.X2] Genesis VANESSA DO [address] [address] CPT-4: 03569 07/25/2017 ([id number]) OFFICE/OUTPATIENT VISIT EST Diagnosis: Pain in unspecified joint[ICD10: M25.50] Jayna VANESSA DO [address] [address] CPT- 4: 75697 06/10/2017 OFFICE/OUTPATIENT VISIT EST Diagnosis: Acute bronchitis, unspecified[ICD10: J20.9] Genesis VANESSA DO [address] [address] CPT- 4: 11387 05/28/2017 ([id number]) OFFICE/OUTPATIENT VISIT EST Diagnosis: Hypothyroidism, unspecified[ICD10: E03.9] Diagnosis: Mixed hyperlipidemia[ICD10: E78.2] Diagnosis: Hekal-7-pqzahcjuxul 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] Diagnosis: Sebaceous cyst[ICD10: L72.3] Jayna VANESSA DO [address] [address] CPT-4: 76852 11/28/2016 ([id number]) OFFICE/OUTPATIENT VISIT EST Diagnosis: Right upper quadrant pain[ICD10: R10.11] Diagnosis: Epigastric pain[ICD10: R10.13] Jayna VANESSA DO [address] [address] CPT-4: 43987 06/05/2016 ([id number]) OFFICE/OUTPATIENT VISIT EST Diagnosis: FLU VACCINE[ICD10: Z23] Jayna JIANG DO [address] [address] CPT-4: 37275 05/01/2016 OFFICE/OUTPATIENT VISIT EST Diagnosis: Hypothyroidism, unspecified[ICD10: E03.9] Diagnosis: Type 1 diabetes mellitus without complications[ICD10: E10.9] Diagnosis: Mixed hyperlipidemia[ICD10: E78.2] Diagnosis: Essential (primary) hypertension[ICD10: I10] Diagnosis: Mixed incontinence[ICD10: N39.46] Jayna VANESSA [address] [address] CPT-4: 94752 11/08/2015 ([id number]) OFFICE/OUTPATIENT VISIT EST Diagnosis: Hypothyroidism, unspecified[ICD10: E03.9] Diagnosis: Other fatigue[ICD10: R53.83] Jayna VANESSA DO [address] [address] CPT-4: 06090 07/19/2015 ([id number]) OFFICE/OUTPATIENT VISIT EST Diagnosis: Hypothyroidism, unspecified[ICD10: E03.9] Diagnosis: Mixed hyperlipidemia[ICD10: E78.2] Diagnosis: Metabolic syndrome[ICD10: E88.81] Diagnosis: Right lower quadrant abdominal tenderness[ICD10: R10.813] Diagnosis: FLU VACCINE[ICD10: Z23] Jayna JIANG DO [address] [address] CPT-4: 07271 03/28/2015 ([id number]) OFFICE/OUTPATIENT VISIT EST Diagnosis: MALAISE AND FATIGUE[ICD9: 780.79] Diagnosis: DEPRESSIVE DISORDER NEC[ICD9: 311] Diagnosis: HYPOTHYROIDISM[ICD9: 244.9] Diagnosis: PNEUMOCOCCAL VACCINE[ICD10: Z23] Jayna VANESSA DO [address] [address] CPT-4: 81696 02/08/2015 ([id number]) OFFICE/OUTPATIENT VISIT EST Diagnosis: MALAISE AND FATIGUE[ICD9: 780.79] Diagnosis: DEPRESSIVE DISORDER NEC[ICD9: 311] Diagnosis: HYPOTHYROIDISM[ICD9: 244.9] Diagnosis: ARTHRALGIA-MULTIPLE SITES[ICD9: 719.49] Jayna SAM TracyPaige OTF [employer] [address] [place] [address] CPT-4: 58802 01/11/2015 ([id number]) OFFICE/OUTPATIENT VISIT EST 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] Diagnosis: - I - HYPOTHYROIDISM[ICD9: 244.9] Diagnosis: COUGH[ICD10: R05] Diagnosis: ALLERGIC RHINITIS[ICD9: 477.9] Diagnosis: Lumbar degenerative disc disease[ICD9: 722.52] Jayna GUTIERREZ TracyPaige DIONICIOMARIALUISA [address] [address] CPT- 4: 64529 11/24/2014 ([id number]) OFFICE/OUTPATIENT VISIT EST Diagnosis: Allergic reaction[ICD9: 995.3] Galina VILLARREALQUELOLI Gibson OTF [employer] [address] [place] [address] CPT-4: 41753 11/19/2014 ([id number]) OFFICE/OUTPATIENT VISIT EST Diagnosis: ALLERGIC RHINITIS[ICD9: 477.9] Diagnosis: WHEEZING[ICD9: 786.07] Diagnosis: URINARY TRACT INFECTION[ICD9: 599.0] Diagnosis: Right flank pain[ICD9: 789.09] Conchita VANESSA [address] [address] CPT-4: 60511 10/27/2014 ([id number]) OFFICE/OUTPATIENT VISIT EST Diagnosis: URINARY TRACT INFECTION[ICD9: 599.0] Diagnosis: Flank pain[ICD9: 789.09] Conchita CARTER [address] [address] CPT-4: 48011 09/23/2014 ([id number]) OFFICE/OUTPATIENT VISIT EST Diagnosis: HYPERTENSION[ICD9: 401.9] Diagnosis: - I - HYPOTHYROIDISM[ICD9: 244.9] Diagnosis: HYPERLIPIDEMIA NEC/NOS[ICD9: 272.4] Diagnosis: DYSMETABOLIC SYNDROME X[ICD9: 277.7] Jayna QUEZADA S. 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 O RENDER DO [address] [address] CPT-4: 13544 08/25/2013 OFFICE/OUTPATIENT VISIT EST Diagnosis: DEPRESSIVE DISORDER NEC[ICD9: 311] Jayna ALVARENGA S. ORENDER DO [address] [address] CPT-4: 70382 06/29/2013 OFFICE/OUTPATIENT VISIT EST Diagnosis: DEPRESSIVE DISORDER NEC[ICD9: 311] Jayna ALVARENGA S. ORENDER DO [employer] [address] [place] [address] CPT-4: 66242 05/26/2013 ([id number]) OFFICE/OUTPATIENT VISIT EST Diagnosis: BRONCHITIS, ACUTE[ICD9: 466.0] Diagnosis: HYPOTHYROIDISM[ICD9: 244.9] Diagnosis: HYPERLIPIDEMIA NEC/NOS[ICD9: 272.4] Diagnosis: Shoulder pain[ICD9: 719.41] Jayna PUCKETT [address] [address] CPT-4: 99450 05/06/2013 ([id number]) OFFICE/OUTPATIENT VISIT EST Diagnosis: BRONCHITIS, ACUTE[ICD9: 466.0] Diagnosis: SINUSITIS, ACUTE[ICD9: 461.9] Jayna VANESSA [address] [address] CPT-4: 96374 04/23/2013 ([id number]) OFFICE/OUTPATIENT VISIT EST Diagnosis: DYSPNEA[ICD9: 786.09] Diagnosis: EDEMA[ICD9: 782.3] Diagnosis: EUESD-8-[id number] DEFICIENCY[ICD9: 273.4] Diagnosis: COUGH[ICD9: 786.2] Jayna VANESSA [address] [address] CPT-4: 39724 03/31/20 OFFICE/OUTPATIENT VISIT EST Diagnosis: Chest pain[ICD9: 786.50] Diagnosis: ANXIETY STATE NOS[ICD9: 300.00] Conchita Charlesjean paulchristiano JAYNA VANESSA [address] [address] CPT-4: 95480 03/05/2013 ([id number]) OFFICE/OUTPATIENT VISIT EST Diagnosis: HYPERLIPIDEMIA NEC/NOS[ICD9: 272.4] Diagnosis: HYPOTHYROIDISM[ICD9: 244.9] Diagnosis: Bduod-4-bgbtzwkrgpt deficiency[ICD9: 273.4] Diagnosis: ALLERGIC RHINITIS[ICD9: 477.9] Jayna VANESSA [address] [address] CPT-4: 59639 02/04/2013 ([id number]) OFFICE/OUTPATIENT VISIT EST Diagnosis: COUGH[ICD9: 786.2] Diagnosis: ALLERGIC RHINITIS[ICD9: 477.9] Jayna VANESSA DO [address] [address] CPT-4: 31981 11/27/2012 ([id number]) OFFICE/OUTPATIENT VISIT EST Diagnosis: COUGH[ICD9: 786.2] Diagnosis: DYSPNEA[ICD9: 786.09] Jayna VANESSA DO [address] [address] CPT-4: 88889 11/11/2012 ([id number]) OFFICE/OUTPATIENT VISIT EST Diagnosis: ABDOMINAL PAIN[ICD9: 789.00] Diagnosis: DIARRHEA[ICD9: 787.91] Diagnosis: COUGH[ICD9: 786.2] Jayna VANESSA [address] [address] CPT-4: 03547 10/21/19 13 OFFICE/OUTPATIENT VISIT EST Diagnosis: COUGH[ICD9: 786.2] Diagnosis: SINUSITIS, ACUTE[ICD9: 461.9] Diagnosis: PHARYNGITIS, ACUTE[ICD9: 462] Jayna VANESSA [address] [address] CPT-4: 08176 09/03/2012 OFFICE/OUTPATIENT VISIT EST Diagnosis: ABDOMINAL PAIN[ICD9: 789.00] Diagnosis: Diarrhea[ICD9: 787.91] Jayna Villalba [address] [address] CPT-4: 99308 07/23/2012 ([id number]) OFFICE/OUTPATIENT VISIT EST Diagnosis: DM 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 TYPE II, UNCONTROLLED[ICD9: 250.02] Diagnosis: HYPERLIPIDEMIA NEC/NOS[ICD9: 272.4] Diagnosis: GERD[ICD9: 530.81] Jayna VANESSA [address] [address] CPT-4: 23972 11/27/20 12 OFFICE/OUTPATIENT VISIT EST Diagnosis: DERMATITIS NOS[ICD9: 692.9] Galina Dafne PUCKETT DO [address] [address] CPT-4: 60981 04/04/2012 ([id number]) OFFICE/OUTPATIENT VISIT EST Diagnosis: HYPERLIPIDEMIA NEC/NOS[ICD9: 272.4] Diagnosis: HYPOTHYROIDISM[ICD9: 244.9] Diagnosis: DYSMETABOLIC SYNDROME X[ICD9: 277.7] Jayna Sanchez DIONICIONDER DO [address] [address] CPT-4: 51152 01/02/2012 OFFICE/OUTPATIENT VISIT EST Diagnosis: COUGH[ICD9: 786.2] Diagnosis: SINUSITIS, ACUTE[ICD9: 461.9] Lizzie Sanchez DIONICIOMARIALUISA [address] [address] CPT-4: 39271 09/04/2011 OFFICE/OUTPATIENT VISIT EST Diagnosis: Diverticulitis[ICD9: 562.11] Diagnosis: THROMBOPHLEBITIS[ICD9: 451.9] Jayna Sanchez DIONICIOMARIALUISA [address] [address] CPT-4: 25815 08/14/2011 OFFICE/OUTPATIENT VISIT EST Diagnosis: COUGH[ICD9: 786.2] Jayna Sanchez DIONICIOMARIALUISA [address] [address] CPT-4: 07609 07/25/19 OFFICE/OUTPATIENT VISIT EST Diagnosis: HYPOTHYROIDISM[ICD9: 244.9] Diagnosis: HYPERLIPIDEMIA NEC/NOS[ICD9: 272.4] Diagnosis: Total knee replacement status[ICD9: V43.65] Jayna Sanchez [facility]TF [address] [address] CPT- 4: 64009 07/12/2011 OFFICE/OUTPATIENT VISIT EST Diagnosis: BRONCHITIS, ACUTE[ICD9: 466.0] Diagnosis: COUGH[ICD9: 786.2] Jayna [facility] [address] [place] [address] CPT-4: 12590 05/09/20 11 OFFICE/OUTPATIENT VISIT EST Diagnosis: BRONCHITIS, ACUTE[ICD9: 466.0] Diagnosis: ASTHMA NOS[ICD9: 493.90] Diagnosis: Pleurisy[ICD9: 511.0] Jayna [facility] [address] [place] [address] CPT-4: 71377 05/02/2011 OFFICE/OUTPATIENT VISIT EST Diagnosis: COUGH[ICD9: 786.2] Jayna GREENBERGNDER DO [address] [address] CPT-4: 51201 04/25/20 11 OFFICE/OUTPATIENT VISIT EST Diagnosis: COUGH[ICD9: 786.2] Diagnosis: SINUSITIS, ACUTE[ICD9: 461.9] Jayna GREENBERGNDER DO [address] [address] CPT-4: 20621 04/04/2011 OFFICE/OUTPATIENT VISIT EST Diagnosis: HYPOTHYROIDISM[ICD9: 244.9] Diagnosis: Knee osteoarthritis[ICD9: 715.96] Jayna Dioniciomarialuisa IGLESIASAIRA GREENBERGNDER DO [address] [phone] CPT-4: 85538 03/01/2011 OFFICE/OUTPATIENT VISIT EST Jaynaparam GUTIERREZ Daniel GREENBERG NDER DO [address] [address] CPT-4: 15800 01/04/2011 ([id number]) OFFICE/OUTPATIENT VISIT EST Jayna Vanessa NORRIS CANDACE [facility] [address] [place] [phone] CPT-4: 15514 12/07/2010 ([id number]) OFFICE/OUTPATIENT VISIT EST Jayna PISANO CANDACE [facility] [address] [place] [phone] CPT-4: 18639 10/09/2010 ([id number]) OFFICE/OUTPATIENT VISIT EST Jayna MARIA S[facility] [address] [place] [address] CPT-4: 16424 08/07/2010 ([id number]) OFFICE/OUTPATIENT VISIT, EST Jayna COPELANDLINE S. [facility] [address] [place] [phone] CPT-4: 97432 06/06/2010 ([id number]) OFFICE/OUTPATIENT VISIT, EST Jayna COPELANDLINE S[facility] [address] [place] [phone] CPT-4: 48084 03/20/2010 ([id number]) OFFICE/OUTPATIENT VISIT, EST Jayna COPELANDLINE S[facility] [address] [place] [phone] CPT-4: 66160 01/30/2010 ([id number]) OFFICE/OUTPATIENT VISIT, EST Jayna VILLARREAL QUELINE S[facility] [address] [place] [phone] CPT-4: 63284 01/09/2010 ([id number]) OFFICE/OUTPATIENT VISIT, EST Jayna COPELANDLINE S. [facility] [address] [place] [phone] CPT-4: 33262 10/26/2009 ([id number]) OFFICE/OUTPATIENT VISIT, EST Lizzie Kelly JAYNA [facility] [address] [place] [phone] CPT-4: 11065 10/18/19 10 ([id number]) OFFICE/OUTPATIENT VISIT, EST Jayna COPELANDLINE S[facility] [address] [place] [phone] CPT-4: 88993 10/04/2009 ([id number]) OFFICE/OUTPATIENT VISIT, EST Jayna [facility]ELANDLINE [facility] [address] [place] [phone] CPT-4: 30080 09/21/2009 Plan of Care Planned Activity Notes [...] 08/30/2022 Appointment: Mar[facility]el[facility] [phone] [facility] [facility] FOLLOW UP 08/30/2022 Patient Education: Patient [...] F43.9 08/07/2022 Appointment: Jayna Vanessa WPtel: [phone] [phone] [facility] FOLLOW UP 08/07/2022 Visit Diagnosis [...] N30.00 06/29/2022 Appointment: Marlene Staples WPtel: [phone] [phone] ACUTE ILLNESS 06/29/2022 Patient Education: ciprofloxacin HCl- OptimizeRX Coupon [id number] Completed 06/29/2022 Visit Diagnosis Plan: Depression Discussion: Increase Wellbutrin XL to 300mg po qAM Fwup 2 mos ICD-9 : 311 ICD-10 : F32.A 05/28/2022 Visit Diagnosis Plan: Hypothyroidism Discussion: Labs discussed Decrease levothyroxine to 150mcg 6 days a week and repeat thyroid lab in 2mos ICD-9 : 244.9 ICD-10 : E03.9 05/28/2022 Appointment: Jayna Vanessa WPtel: [phone] [phone] US FOLLOW UP 05/28/2022 Visit Diagnosis Plan: [...] R73.9 05/10/2022 Appointment: Jayna Vanessa WPtel: [phone] [phone] US FOLLOW UP 05/10/2022 Visit Diagnosis Plan: Migraine, intractable Discussion : Toradol 30mg IM x1 given in clinic. Start Rizatriptan-- discussed on how to use and may repeat x1 dose 2 hours later. Restart propranolol for migraine prevention. Notify clinic if migraine not improving. ICD-9 : 346.91 ICD-10 : G43.919 04/18/2022 Appointment: Marlene Staples WPtel: [phone] [phone] US ACUTE ILLNESS 04/18/2022 Patient Education: propranolol- OptimizeRX Coupon [id number] Completed 04/18/2022 Appointment: Jayna Vanessa WPtel: [phone] [phone] US INJECTION 04/05/2022 Appointment: Jayna Vanessa WPtel: [phone] [phone] US CANCELED 03/21/2022 Visit Diagnosis Plan: Acute [...] : J30.9 02/15/2022 Appointment: Jayna Vanessa WPtel: [address] [place], [place] [phone] ACUTE ILLNESS 02/15/2022 Patient Education: prednisone- OptimizeRX Coupon [id number] https://www.Where I've Been.Homestay.com/samplemd/resources/getResource/61/61l15oa2-k299-7j65-uc Completed 02/15/2022 Visit Diagnosis Plan: Hypothyroidism, unspecified Disc ussion: Stable ICD-9 : 244.9 ICD-10 : E03.9 02/06/2022 Visit Diagnosis Plan: Encounter for [facility] adult medical examination without abnormal findings [...] J44.9 02/06/2022 Appointment: Jayna Vanessa WPtel: [phone] [phone] Annual Well Visit 02/06/2022 Care Plan: Annual depression screening, 15 minutes 02/06/2022 Visit Diagnosis Plan: 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 Patient declines- will get stat CT of the head, cbc, cmp, and ESR and fwup with results [facility] sample given ICD-9 : 346.03 ICD-10 : G43.111 02/01/2022 Appointment: Latasha Anand WPtel: [phone] [phone] ACUTE ILLNESS 02/01/2022 Patient Education: Patient Medication [...] R19.7 11/29/2021 Appointment: Jayna Vanessa WPtel: [phone] [phone] FOLLOW UP 11/29/2021 Visit Diagnosis Plan: Diarrhea Discussion: C Diff nega tive Treat with diflucan and Restora-RX Fwup 1 week ICD-9 : 787.91 ICD-10 : R19.7 11/22/2021 Visit Diagnosis Plan: Post-viral cough syndrome Discus joaquín: Change albuterol to Breztri 2p BID Add singulair 10mg po q HS ICD-9 : 786.2 ICD-10 : R05.8 11/22/2021 Appointment: Jayna Vanessa WPtel: [phone] [phone] ACUTE ILLNESS 11/22/2021 Patient Education: Singulair- OptimizeRX Coupon [id number] https://www.SocStock/samplemd/resources/getResource/61/9j23chs5-5ugv-8571-8r Completed 11/22/2021 Visit Diagnosis Plan: Diarrhea of presumed infectious origin Discussion: Will check for c-diff due to recent antibiotics and foul smelling diarrhea ICD-9 : 009.3 ICD-10 : R19.7 11/21/2021 Visit Diagnosis Plan: History of recent pneumonia Disc ussion: Check cbc, cmp, ESR, and cxr now ICD-9 : V12.61 ICD-10 : Z87.01 11/21/2021 Appointment: Latasha Anand WPtel: [facility] [place] [phone] ACUTE ILLNESS 11/21/2021 Patient Education: Patient Medication Summary Completed 11/21/2021 Visit Diagnosis Plan: Pneumonia Discussion: Finish all abx and continue albuterol Fwup next week ICD-9 : 486 ICD-10 : J18.9 11/09/2021 Visit Diagnosis Plan: Serous otitis media Discussion: Kenalog 40mg with Dexamethasone 2mg IM now ICD-9 : 381.4 ICD-10 : H65.90 11/09/2021 Appointment: Jayna Vanessa WPtel: [address] [place], [place] [phone] Hospital Follow Up 11/09/2021 Visit Diagnosis Plan: Pneumonia Discussion: Admit to h ospital ICD-9 : 486 ICD-10 : J18.9 10/31/2021 Appointment: Jayna Vanessa WPtel: [phone] [phone] US FOLLOW UP 10/31/2021 Visit Diagnosis Plan: [...] prn 10/30/2021 Appointment: Jayna Vanessa WPtel: [phone] [phone] US ACUTE ILLNESS 10/30/2021 Visit Diagnosis Plan: Cervicalgia Discussion: Had x-ra ys done Kenalog 40mg IM now Baclofen prn Mobic for 1 week Topical muscle rube Moist heat and stretches shown Has PT sessions scheduled next week so will add in therapy for neck ICD-9 : 723.1 ICD-10 : M54.2 09/05/2021 Appointment: Jayna Vanessa WPtel: [phone] [phone] ACUTE ILLNESS 09/05/2021 Visit Diagnosis Plan: Arthritis [...] 08/24/2021 Appointment: Latasha Anand WPtel: [phone] [phone] US ACUTE ILLNESS 08/24/2021 Patient Education: Patient Medication Summary Completed 08/24/2021 Patient Education: prednisone- OptimizeRX Coupon [id number] Completed 08/24/2021 Visit Plan: Supportive care. Rest, [...] 07/04/2021 Appointment: Latasha Anand WPtel: [phone] [phone] US ACUTE ILLNESS 07/04/2021 Patient Education: Patient Medication Summary Completed 07/04/2021 Patient Education: Patient Medication Summary Completed 07/04/2021 Appointment: Latasha Anand WPtel: [phone] [phone] US NO SHOW 07/03/2021 Appointment: Latasha Anand WPtel: [phone] [phone] US patients issue resolved so moved to 's schedule for his hospital fwup (km) CANCELED 03/29/2021 Appointment: Jayna Vanessa WPtel: [phone] [phone] US INJECTION 03/29/2021 Visit Diagnosis Plan: Vasovagal [...] 02/08/2021 Appointment: Latasha Anand WPtel: [phone] [facility] ACUTE ILLNESS 02/08/2021 Patient Education: Patient Medication Summary Completed 02/08/2021 Visit Diagnosis Plan: Contact dermatitis Discussion: T opical TAC and prednisone Notify if persists or worsens ICD-9 : 692.9 ICD-10 : L25.9 01/19/2021 Appointment: Jayna Vanessa WPtel: [phone] [phone] ACUTE ILLNESS 01/19/2021 Patient Education: prednisone- OptimizeRX Coupon [id number] Completed 01/19/2021 Patient Education: triamcinolone acetonide- OptimizeRX Coupon [id number] Completed 01/19/2021 Visit Diagnosis Plan: Hypothyroidism, unspecified Disc ussion: Increase levothyroxine to 150mcg po daily and recheck TSH and free T4 in 2mos ICD-9 : 244.9 ICD-10 : E03.9 01/03/2021 Visit Diagnosis Plan: Essential (primary) hypertension Discussion: Stable ICD-9 : 401.9 ICD-10 : I10 01/03/2021 Visit Diagnosis Plan: Encounter for [facility] adult medical examination without abnormal findings Discussion: Mediterranean diet Combinati on of cardio and weight bearing exercise Had Covid vaccines Lab discussed ICD-9 : V70.9 ICD-10 : Z00.00 01/03/2021 Visit Diagnosis Plan: Chronic obstructive pulmonary di sease, unspecified Discussion: Following with pulmonology ICD-9 : 496 ICD-10 : J44.9 01/03/2021 Appointment: Jayna Vanessa WPtel: [phone] [phone] Annual Well Visit 01/03/2021 Patient Education: levothyroxine- OptimizeRX Coupon [id number] https://www.SocStock/sampleCouponCabin/resources/getResource/61/1j266zi4-4qa9-9089-q1 Completed 01/03/2021 Visit Diagnosis Plan: COPD exacerbation Discussion: Sa mple of breztri given. Prednisone 40 mg x 5 days for exacerbation- increased cough, shortness of breath, and phlegm. Promethazine DM cough syrup sent d/t frequent hacking cough that interrupts sleep. F/U for no improvement or any concerns. ICD-9 : 491.21 ICD-10 : J44.1 11/29/2020 Appointment: Latasha Anand WPtel: [phone] [facility] ACUTE ILLNESS 11/29/2020 Patient Education: Patient Medication Summary Completed 11/29/2020 Patient Education: prednisone- OptimizeRX Coupon [id number] Completed 11/29/2020 Patient Education: promethazine-DM- OptimizeRX Coupon [id number] Completed 11/29/2020 Visit Diagnosis Plan: Sinusitis Discussion: Will start doxycycline (pcn allergy). Sinus rinses. Tylenol/nsaids for headache/pain. Return to clinicif not improving/concerns. ICD-9 : 473.9 ICD-10 : J32.9 09/29/2020 Appointment: Latasha Anand WPtel: [phone] [facility]9[address] ACUTE ILLNESS 09/29/2020 Patient Education: Patient Medication Summary Completed 09/29/2020 Patient Education: doxycycline hyclate- OptimizeRX Coupon [id number] Completed 09/29/2020 Visit Diagnosis Plan: Other [...] 09/19/2020 Appointment: Louis Anandah WPtel: [phone] [phone] ACUTE ILLNESS 09/19/2020 Patient Education: Patient Medication Summary Completed 09/19/2020 Patient Education: ProAir HFA- OptimizeRX Coupon [id number] Completed 09/19/2020 Visit Diagnosis Plan: Right-sided tinnitus [...] H93.11 08/10/2020 Appointment: Jayna Vanessa WPtel: [address] FOLLOW UP 08/10/2020 Patient Education: neomycin-polymyxin B-dexameth- Opti mizeRX Coupon [id number] https://www.SocStock/Where I've Been/resources/getResource/61/bl862j64-o96n-3k65-vt Completed 08/10/2020 Visit Diagnosis Plan: Dysfunction of right eustachian tube Discussion: Naylay.ma video visit done Increase zyrtec to BID Increase flonase to BID Add prednisone To office at end of week to assess otoscope exam if persists ICD-9 : 381.81 ICD-10 : H69.81 08/01/2020 Appointment: Jayna Vanessa WPtel: [phone] [phone] TELEMEDICINE 08/01/2020 Patient Education: prednisone- OptimizeRX Coupon [id number] https://www.SocStock/Where I've Been/resources/getResource/61/de0y45c0-9392-1j5h-54 Completed 08/01/2020 Visit Diagnosis Plan: Pyelonephritis Discussion: Hilary daniel all abx Push fluids Check lab and repeat UA in 5 days--CBC, CMP, ESR ICD-9 : 590.80 ICD-10 : N12 07/13/2020 Appointment: Jayna Vanessa WPtel: [phone] [phone] Hospital Follow Up 07/13/2020 Visit Diagnosis Plan: Acute gastroenteritis Discussion : Telephone visit completed Clear liquid diet next 24-48hrs Flagyl to cover for colitis/diverticulitis Zofran prn Notify or to ER if worsening ICD-9 : 558.9 ICD-10 : K52.9 07/05/2020 Appointment: Jayna Vanessa WPtel: [phone] [phone] TELEMEDICINE 07/05/2020 Patient Education: ondansetron HCl- OptimizeRX Coupon [id number] https://www.SocStock/Where I've Been/resources/getResource/61/s0s47ag6-6q8j-416t-5h Completed 07/05/2020 Visit Diagnosis Plan: Metabolic syndrome Discussion: U pdate CMP, HBa1c ICD-9 : 277.7 ICD-10 : E88.81 06/22/2020 Visit Diagnosis Plan: Watvr-3-yscnjerwfly deficiency D iscussion: Following with pulmonology ICD-9 [...] I10 06/22/2020 Appointment: Jayna Vanessa WPtel: [phone] [phone] FOLLOW UP 06/22/2020 Visit Diagnosis Plan: Urinary tract infection Discussi on: Macrobid Diflucan Push water Notify if worsens ICD-9 : 599.0 ICD-10 : N39.0 05/17/2020 Appointment: Jayna Vanessa WPtel: [address] [place], [place] [phone] ACUTE ILLNESS 05/17/2020 Patient Education: fluconazole- OptimizeRX Coupon [phone] https://www.SocStock/Where I've Been/resources/getResource/61/7b2mq7zf-m3l8-5a7d-7j Completed 05/17/2020 Visit Diagnosis Plan: Right pulmonary embolus Discussi on: Continue eliquis at 5mg po BID Has appointments pending with pulmonology and hematology Fwup after visits with both of these specialists ICD-9 : 415.19 ICD-10 : I26.99 03/14/2020 Appointment: Jayna Vanessa WPtel: [address] [place], [place] [phone] [facility] 03/14/20 on cell -- home phone had busy signal Hospital Follow Up 03/14/2020 Appointment: Jayna Vanessa WPtel: [address] [place], [place] [phone] I schedule patient by mistake ddo Scheduled [...] : R06.00 03/07/2020 Appointment: Jayna Vanessa WPtel: [address] [place], [place] [phone] ACUTE ILLNESS 03/07/2020 Care Plan: CT THORAX W/DYE LOINC : 69422 -6 Pending 03/07/2020 Appointment: Jayna Vanessa WPtel: [phone] [phone] NO SHOW - FORGIVEN 03/02/2020 Visit Diagnosis Plan: Upper respiratory infection Disc ussion: patient's covid test was neg from several weeks ago. proair refilled to take as needed. medrol pack prescribed to cover for allergies since her symptoms began after being in [facility]. however, instructed patient that she needs to be checked again for coronavirus due to severity of her symptoms. patient lives near [place] so informed her to go to [facility] for testing. call ofice with new or worsening symptoms, otherwise push fluids. ICD-9 : 465.9 ICD-10 : J06.9 02/11/2020 Appointment: Genesis Fernández [address] [id number]IC[facility] 02/11/2020 Patient Education: ProAir HFA- OptimizeRX Coupon [id number] Completed 02/11/2020 Patient Education: Medrol (Isaiah)- OptimizeRX Coupon [id number] Completed 02/11/2020 Visit Diagnosis Plan: Hypothyroidism, unspecified [...] I10 12/21/2019 Visit Diagnosis Plan: Encounter for [facility] adult medical examination without abnormal findings Discussion: Mediterranean diet Combinati on of cardio and weight bearing exercise Lab discussed Last colonoscopy 3 years ago ICD-9 : V70.9 ICD-10 : Z00.00 12/21/2019 Appointment: Jayna Vanessa WPtel: [phone] [phone] Annual Well Visit 12/21/2019 Care Plan: Referral Order SNOMED-CT : [id number] Pending 12/21/2019 Visit Diagnosis Plan: Dermatitis Discussion: Doxy.me v ideo visit done Cover with Prednisone taper Use Zyrtec 10mg po q AM BID ICD-9 : 692.9 ICD-10 : L30.9 09/29/2019 Appointment: Jayna Vanessa WPtel: [address] [place], [place] [phone] TELEMEDICINE 09/29/2019 Patient Education: prednisone- OptimizeRX Coupon [phone] https://www.SocStock/Where I've Been/resources/getResource/61/05c47q80-8c53-4o50-0w Completed 09/29/2019 Visit Diagnosis Plan: Bone spur [...] : N39.0 09/14/2019 Appointment: Jayna Vanessa WPtel: [address] [place], [place] [address] TELEMEDICINE 09/14/2019 Appointment: Jayna Vanessa WPtel: [address] [place], [place] [phone] US LAB 09/11/2019 Appointment: Jayna Vanessa WPtel: [address] [place], [place] [phone] 09/09/2019 1210--per Ally patient was to only have 1 injection, reculture urine on 09/11/19 (km) CANCELED 09/09/2019 Appointment: Jayna Vanessa WPtel: [address] [place], [place] [phone] US INJECTION 09/08/2019 Appointment: Jayna Vanessa WPtel: [facility]6 [phone] US INJECTION 09/07/2019 Visit Diagnosis Plan: Urinary [...] ICD-10 : R35.0 09/02/2019 Appointment: Genesis Fernández [address] [place] [address] ACUTE ILLNESS 09/02/2019 Visit Diagnosis Plan: Sinusitis Discussion: instructed to start flonase daily and zyrtec daily. if no improvement next week, call clinic and may need further directions. instructed to use saline eye drops as needed to eyes to assist with dryness. ICD-9 : 473.9 ICD-10 : J32.9 07/09/2019 Appointment: Genesis Fernández [address] [place] [address] ACUTE ILLNESS 07/09/2019 Visit Diagnosis Plan: UTI (urinary tract infection) Di scussion: urine culture sent off. will start on macrobid due to symptoms. instructed to push fluids and chemo tomorrow with worsening symptoms. ICD-9 : 599.0 ICD-10 : N39.0 04/15/2019 Appointment: Jayna Vanessa WPtel: [phone] [phone] US INJECTION 04/15/2019 Appointment: Genesis Fernández [address] [place] [address] ACUTE ILLNESS 04/15/2019 Visit Diagnosis Plan: Pain in right leg Discussion: ke nalog/dexa given in office. continue with flexeril prn. PT was ordered for patient due to chronic issues. call office with worsening symptoms and may need imaging. ICD-9 : 729.5 ICD-10 : M79.604 04/07/2019 Appointment: Genesis Fernández [address] [place] [address] ACUTE ILLNESS 04/07/2019 Visit Diagnosis Plan: Diverticulitis of large intestine without perforation or abscess without bleeding Discussion: Patient will call when she g ets home and verify which antibiotics she has left--needs at least another week on flagyl and thinks she only took 1 week on that ICD-9 : 562.11 ICD-10 : K57.32 03/25/2019 Appointment: Jayna Vanessa WPtel: [facility] [place] [phone] FOLLOW UP 03/25/2019 Visit Diagnosis Plan: Cystitis Discussion: Bactrim and culture urine ICD-9 : 595.9 ICD-10 : N30.90 03/18/2019 Visit Diagnosis Plan: Abdominal pain Discussion: Cover with flagyl for colitis [place] diet To ER this weekend if worsening Fwup 1 week ICD-9 : 789.00 ICD-10 : R10.9 03/18/2019 Appointment: Jayna Vanessa WPtel: [facility]6 [address] ACUTE ILLNESS 03/18/2019 Visit Diagnosis Plan: [...] ICD-10 : R10.84 01/26/2019 Appointment: Genesis Fernández [address] [place] [address] ACUTE ILLNESS 01/26/2019 Appointment: Jayna Vanessa WPtel: [phone] [phone] US CANCELED 01/12/2019 Visit Diagnosis Plan: Mild intermittent asthma with (a cute) exacerbation Discussion: Kenalog 40mg IM now Prednisone stating tomorrow Start Doxycycline tonight Continue SVNs with duoneb q4hrs To ER this weekend if worsening Call Saturday on how doing ICD-9 : 466.0 ICD-10 : J45.21 01/08/2019 Appointment: Jayna Vanessa WPtel: [phone] [phone] FOLLOW UP 01/08/2019 Patient Education: prednisone- OptimizeRX Coupon [phone] https://www.SocStock/Where I've Been/resources/getResource/61/84455846-t4ca-1178-99 Completed 01/08/2019 Visit Diagnosis Plan: Mild intermittent asthma with (a cute) exacerbation Discussion: Solumedrol 125mg IM SVN with duoneb given Continue albuterol q4hrs CXR now Recheck tomorrow ICD-9 : 466.0 ICD-10 : J45.21 01/06/2019 Appointment: Jayna Vanessa WPtel: [facility]6 [phone] ACUTE ILLNESS 01/06/2019 Visit Diagnosis Plan: Encounter [...] ICD-10 : N76.0 12/11/2018 Appointment: Genesis Fernández [address] [place] [address] Annual Well Visit 12/11/2018 Care Plan: RML ASSAY THYROID STIM HORMONE Pending 12/04/2018 Care Plan: RML ASSAY OF FREE THYROXINE Pe nding 12/04/2018 Care Plan: RML A1C HPLC LOINC : 34455-6 Pending 12/04/2018 Care Plan: RML LIPID PANEL LOINC : 51312 -1 Pending 12/04/2018 Care Plan: RML COMPREHEN METABOLIC PANEL LOINC : 74457-4 Pending 12/04/2018 Care Plan: QUEST CBC (INCLUDES DIFF/PLT) LOINC : 28843-5 Pending 12/04/2018 Visit Diagnosis Plan: Benign paroxysmal vertigo, bilat eral Discussion: Meclizine Vestibular Exercises To ER if worsens or develops neurological symptoms or will need CT scan if persists/worsens ICD-9 : 386.11 ICD-10 : H81.13 10/30/2018 Appointment: Jayna Vanessa WPtel: [address] [place], [place] [phone] ACUTE ILLNESS 10/30/2018 Patient Education: VESTIBULAR EXCERCISES Completed 10/30/2018 Patient Education: meclizine- OptimizeRX Coupon [id number] Completed 10/30/2018 Appointment: Jayna Vanessa WPtel: [facility] [place] [phone] US canceled due to huband going into [...] ICD-10 : R05 10/07/2018 Appointment: Stacey Feng [facility]0 [facility] ACUTE ILLNESS 10/07/2018 Patient Education: doxycycline hyclate- OptimizeRX [facility] [id number] https://www.Where I've Been.com/samplemd/resources/getResource/61/f291xjm1-c586-314m-65 Completed 10/07/2018 Care Plan: RML ASSAY OF [...] ICD-10 : M85.80 06/23/2018 Appointment: Jayna Vanessatel: [address] [place], [place] [phone] FOLLOW UP 06/23/2018 Appointment: Jayna Vanessa WPtel: [address] [place] [address] ER Follow UP 01/27/2018 Visit Diagnosis Plan: Hypothyroidism, unspecified Disc ussion: Lab discussed Increase Levothyroxine to 175mcg daily then recheck level in 6 weeks Follow Up: 6 weeks ICD-9 : 244.9 ICD-10 : E03.9 01/16/2018 Visit Diagnosis Plan: Mixed hyperlipidemia Discussion: Defers statin meds ICD-9 : 272.4 ICD-10 : E78.2 01/16/2018 Appointment: Jayna Vanessa WPtel: [address] [place], [place] [phone] US FOLLOW UP 01/16/2018 Patient Education: Patient Medication Summary Completed 01/16/2018 Patient Education: Patient Medication Summary Completed 01/15/2018 Care Plan: RML COMPREHEN METABOLIC PANEL LOINC : 41721-2 Pending 01/15/2018 Care Plan: RML ASSAY THYROID STIM HORMONE Pending 01/15/2018 Care Plan: RML ASSAY OF FREE THYROXINE Pe nding 01/15/2018 Care Plan: RML LIPID PANEL LOINC : 86820 -1 Pending 01/15/2018 Care Plan: CBC Pending 01/15/2018 Care Plan: RML A1C HPLC LOINC : 03115-9 Pending 01/15/2018 Appointment: Jayna Vanessa WPtel: [address] [place], [place] [phone] US CANCELED 12/26/2017 Appointment: Jayna Vanessa WPtel: [address] [place] [address] US CANCELED 10/28/2017 Visit Diagnosis Plan: Cervicalgia Discussion: xray ord ered of cervical spine and right shoulder. 40 mg kenalog/15 mg toradol prescribed to assist with pain. medrol dose pack prescribed to start tomorrow. instructed patient that if she d evelops worsening pain or no improvement, call or rtc. ICD-9 : 723.1 ICD-10 : M54.2 10/16/2017 Appointment: Genesis Fernández [address] [place] [address] ACUTE ILLNESS 10/16/2017 Patient Education: Patient Medication Summary Completed 10/16/2017 Care Plan: X-RAY EXAM NECK SPINE 4/5VWS cervical LOINC : 61245-8 Pending 10/16/2017 Visit Diagnosis Plan: Headache Discussion: Stat CT of head Dilated eye exam ICD-9 : 784.0 ICD-10 : R51 09/12/2017 Visit Diagnosis Plan: Dizziness and giddiness Discussi on: Check CBC,TSH, Free T4 now ICD-9 : 780.4 ICD-10 : R42 09/12/2017 Appointment: Jayna Vanessatel: [address] [place], [place] [phone] ACUTE ILLNESS 09/12/2017 Patient Education: Patient Medication Summary Completed 09/12/2017 Care Plan: CT HEAD/BRAIN W/O DYE [facility] : 27651-6 Pending 09/12/2017 Visit Diagnosis Plan: Cough Discussion: discussed cxra y and sputum results with patient and how they are negative for bacteria. patient restarted on her PPI to cover possiblity of GERD causing cough. 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 rtc with any new or worsening symptoms but continue with inhaler and nebulizer treatments as needed. ICD-9 : 786.2 ICD-10 : R05 08/20/2017 Appointment: Genesis Fernández [address] [place] [address] FOLLOW UP 08/20/2017 Patient Education: Patient Medication Summary Completed 08/20/2017 Visit Diagnosis Plan: COUGH Discussion: Check stat CXR Check Sputum culture ICD-9 : 786.2 ICD-10 : R05 08/13/2017 Appointment: Jayna Vanessa WPtel: [address] [place], [place] [address] ACUTE ILLNESS 08/13/2017 Patient Education: Patient Medication [...] Rest, Fluids... 07/29/2017 Appointment: Jayna Vanessa WPtel: [address] [place], [place] [phone] ACUTE ILLNESS 07/29/2017 Patient Education: Patient Medication [...] ICD-10 : J09.X2 07/25/2017 Appointment: Genesis Fernández [address] [place] [address] ACUTE ILLNESS 07/25/2017 Patient Education: Patient Medication [...] : M25.50 06/10/2017 Appointment: Jayna Vanessa WPtel: [address] [place] [address] ACUTE ILLNESS 06/10/2017 Patient Education: Patient Medication Summary Completed 06/10/2017 Appointment: Jayna Vanessa WPtel: [address] [place], [place] [address] Does not need appointment CANCELED 2016 Appointment: Jayna Vanessa WPtel: [address] [place], [place] [phone] US CANCELED 05/30/2017 Visit Diagnosis Plan: Acute bronchitis, unspecified Di scussion: prednisone, zpack and tessalon perles prescribed to assist with symptoms. call or RTC if no improvement. humidifier at night. hydrate well and rest. discussed side effects from prednisone including increased blood sugars and instructed to monitor. ICD-9 : 490 ICD-10 : J20.9 05/28/2017 Appointment: Genesis Fernández [address] ACUTE ILLNESS 05/28/2017 Patient Education: Patient Medication Summary Completed 05/28/2017 Visit Diagnosis Plan: Type 2 diabetes mellitus without complications Discussion: Continue current meds accuchecks daily ICD-9 : 250.00 ICD-10 : E11.9 04/04/2017 Visit Diagnosis Plan: Encounter for [facility] adult medical examination without abnormal findings Discussion: Flu and Pneumovax given Mamm ogram ordered Lab discussed ICD-9 : V70.9 ICD-10 : Z00.00 04/04/2017 Appointment: Jayna Vanessatel: [phone] [phone] Annual Well Visit 04/04/2017 Patient Education: Patient Medication Summary Completed 04/04/2017 Care Plan: MAMMOGRAM SCREENING LOINC : 2 6347-5 Pending 04/04/2017 Patient Education: Patient Medication Summary Completed 03/21/2017 Care Plan: RML COMPREHEN METABOLIC PANEL LOINC : 11022-7 Pending 03/21/2017 Care Plan: RML ASSAY THYROID STIM HORMONE Pending 03/21/2017 Care Plan: RML ASSAY OF FREE THYROXINE Pe nding 03/21/2017 Care Plan: CBC Pending 03/21/2017 Care Plan: RML A1C HPLC LOINC : 31913-7 Pending 03/21/2017 Visit Diagnosis Plan: Mixed hyperlipidemia Discussion: Continue current meds Follow Up: 6 months ICD-9 : 272.4 ICD-10 : E78.2 11/28/2016 Visit Diagnosis Plan: Hypothyroidism, unspecified Disc ussion: Continue current dose ICD-9 : 244.9 ICD-10 : E03.9 11/28/2016 Visit Diagnosis Plan: Hqgjt-[id number] deficiency D iscussion: Continue weekly injections ICD-9 : 273.4 ICD-10 : E88.01 11/28/2016 Visit Diagnosis Plan: Sebaceous cyst Discussion: Emily swann Discussed removal ICD-9 : 706.2 ICD-10 : L72.3 11/28/2016 Appointment: Jayna Vanessatel: [phone] [phone] 6/6 rang and rang on home phone and mobile confirmed~sl FOLLOW UP 11/28/2016 Patient Education: Patient Medication Summary Completed 11/28/2016 Patient Education: Patient Medication Summary Completed 11/20/2016 Referral: Tom Mcrael: 100 [facility] 440 [id number] US Referral Initiated 07/05/2016 Visit Plan: Start with CT abdomen/pelvis Will need EGD and Colonoscopy so will refer to Dr. Pina Obtain most recent lab results 06/05/2016 Appointment: Jayna Vanessa WPtel: [phone] [phone] ACUTE ILLNESS 06/05/2016 Patient Education: Patient Medication Summary Completed 06/05/2016 Care Plan: CT PELVIS W/O DYE LOINC : 361 08-9 Pending 06/05/2016 Care Plan: CT ABDOMEN W/O DYE LOINC : 36 103-0 Pending 06/05/2016 Care Plan: Referral Order SNOMED-CT : [id number] Pending 06/05/2016 Appointment: Jayna Vanessa WPtel: [phone] [phone] US INJECTION 05/01/2016 Patient Education: Patient Medication Summary Completed 05/01/2016 Patient Education: Patient Medication Summary Completed 04/26/2016 Care Plan: RML COMPREHEN METABOLIC PANEL LOINC : 54088-8 Pending 04/26/2016 Care Plan: RML ASSAY THYROID STIM HORMONE Pending 04/26/2016 Care Plan: RML ASSAY OF FREE THYROXINE Pe nding 04/26/2016 Care Plan: RML A1C HPLC LOINC : 20807-8 Pending 04/26/2016 Referral: Aditya Stone WPtel: [address] [place] [address] [id number] Arrival time is 10:00 Am~sl Appointment Confirme d 11/25/2015 Visit Plan: Had fasting lab done this AM Continue PT for right shoulder Continue current meds Referral to Dr. Temo Stone for incontinence 11/08/2015 Appointment: Jayna Vanessa WPtel: [phone] [phone] 11/06 confirmed-sp FOLLOW UP 11/08/2015 Patient Education: Patient Medication Summary Completed 11/08/2015 Appointment: Jayna Vanessa WPtel: [address] [place], [place] [phone] [place] 10/19 rescheduled ~sl RESCHEDULED 10/24/2015 Appointment: Jayna Vanessa WPtel: [address] [place], [place] [phone] 10/10rang and rang ~sl RESCHEDULED 6 Patient Education: Patient Medication Summary Completed 10/12/2015 Care Plan: RML COMPREHEN METABOLIC PANEL LOINC : 84730-5 Pending 10/12/2015 Care Plan: RML ASSAY THYROID STIM HORMONE Pending 10/12/2015 Care Plan: RML ASSAY OF FREE THYROXINE Pe nding 10/12/2015 Care Plan: RML LIPID PANEL LOINC : 85893 -1 Pending 10/12/2015 Care Plan: CBC Pending 10/12/2015 Care Plan: RML A1C HPLC LOINC : 50889-7 Pending 10/12/2015 Care Plan: VITAMIN D TOTAL (25 HYDROXY) P ending 10/12/2015 Appointment: Jayna Vanessa WPtel: [address] [place], [place] [phone] [place] CANCELED 09/22/2015 Visit Plan: Lab discussed Change thyroid med back to brand synthroid and recheck thyroid lab in os 07/19/2015 Appointment: Jayna Vanessa WPtel: [address] [place], [place] [phone] 07/18/15 appt confirmed cn FOLLOW UP 07/19 Patient Education: Patient Medication Summary Completed 07/19/2015 Patient Education: Patient Medication Summary Completed 07/12/2015 Visit Plan: Lab discussed Change synthro id to 150mcg all days but M, W, F will change to 175mcg Check Lab and fwup in 3mos Flu shot given 03/28/2015 Appointment: Jayna Vanessa WPtel: [address] [place], [place] [phone] [place] 03/25 rang for 1:40 seconds 03/28/ appt confirmed cn FOLLOW UP 03/28/2015 Patient Education: Patient Medication Summary Completed 03/28/2015 Patient Education: Patient Medication Summary Completed 03/21/2015 Visit Plan: Continuue fluoxetine at high er dose Increase synthroid to 150mcg as ordered Decrease propranolol to 20mg po BID Check thyroid lab and fwup in 2mos Prevnar 13 given 02/08/2015 Appointment: Jayna Vanessa WPtel: [address] [place], [place] [phone] FOLLOW UP 02/08/2015 Patient Education: Patient Medication Summary Completed 02/08/2015 Visit Plan: Check CBC, CMP, TSH, Free T4 , uric acid, lactate now Increase fluoxetine to 40mg daily Recheck in 1month Notify if worsening Culture urine 01/11/2015 Appointment: Jayna Vanessa WPtel: [address] [place], [place] [phone] ACUTE ILLNESS 01/11/2015 Patient Education: Patient Medication Summary Completed 01/11/2015 Visit Plan: Lab discussed Accuchecks lucian ly Medrol dose pack Rx for back brace 11/24/2014 Appointment: Jayna Vanessa WPtel: [address] [place], [place] [phone] 11/23 confirmed -mf FOLLOW UP 11/24/2014 Patient Education: Patient Medication Summary Completed 11/24/2014 Appointment: Galina Leos WPtel: [address] [place], [place] [phone] ER Follow UP 11/19/2014 Patient Education: Patient Medication Summary Completed 11/19/2014 Appointment: Conchita Capone WPtel: [address] [place] [address] ACUTE ILLNESS 10/27/2014 Patient Education: Patient Medication Summary Completed 10/27/2014 Patient Education: [facility] - Saving AutoInj - 18+ - Dynamic Portal ID Completed 10/27/2014 Appointment: Conchita Capone WPtel: [address] [place], [place] [phone] ACUTE ILLNESS 09/23/2014 Patient Education: Patient Medication Summary Completed 09/23/2014 Visit Plan: Lab discussed Continue curre nt meds 07/28/2014 Appointment: Jayna Vanessa WPtel: [address] [place], [place] [phone] 07/27 FOLLOW UP 07/28/2014 Patient Education: Patient Medication Summary Completed 07/28/2014 Patient Education: Patient Medication Summary Completed 07/21/2014 Patient Education: Patient Medication Summary Completed 04/27/2014 Appointment: Jayna Vanessa WPtel: [address] [place], [place] [phone] 03/29 FOLLOW UP 03/30/2014 Patient Education: Patient Medication Summary Completed 03/30/2014 Patient Education: [facility] - Saving AutoInj - 18+ - Dynamic Portal ID Completed 03/30/2014 Visit Plan: Lab discussed DC Vytorin Tri al of Lipitor 80mg q HS Continue Trilipix Check Lipids/CMP/thyroid and HbA1C in 4mos then fwup 11/24/2013 Appointment: Jayna Vanessa WPtel: [address] [place], [place] [phone] FOLLOW UP 11/24/2013 Patient Education: Patient Medication Summary Completed 11/24/2013 Patient Education: [facility] - Saving AutoInj - 18+ - Dynamic Portal ID Completed 11/24/2013 Visit Plan: Lab discussed Daily accuchec ks Cont current meds 08/25/2013 Appointment: Jayna Vanessa WPtel: [address] [place], [place] [phone] 08/24 FOLLOW UP 08/25/2013 Patient Education: Patient Medication Summary Completed 08/25/2013 Appointment: Jayna Vanessa WPtel: [address] [place], [place] [phone] FOLLOW UP 08/05/2013 Visit Plan: Continue Wellbutrin/Fluoxeti ne Fasting lab and fwup in 2mos 06/29/2013 Appointment: Jayna Vanessa WPtel: [facility]5 [phone] 06/26 left message FOLLOW UP 06/29/2013 Patient Education: Patient Medication Summary Completed 06/29/2013 Visit Plan: Increase Wellbutrin to 300mg daily Add fluoxetine 20mg daily 05/26/2013 Appointment: Jayna Vanessa WPtel: [address] [place], [place] [phone] FOLLOW UP 05/26/2013 Patient Education: Patient Medication Summary Completed 05/26/2013 Visit Plan: OK to proceed with planned s ulder surgery next week Continue current meds Check fasting lab--CBC, CMP, TSH, free T4, HbA1C, Lipids, Vit D at end of this week prior to surgery 05/06/2013 Appointment: Jayna Vanessa WPtel: [address] [place], [place] [phone] FOLLOW UP 05/06/2013 Patient Education: Patient Medication Summary Completed 05/06/2013 Appointment: Jayna Vanessa WPtel: [address] [place], [place] [phone] ACUTE ILLNESS 04/23/2013 Patient Education: Patient Medication Summary Completed 04/23/2013 Patient Education: [facility] - Saving AutoInj - 18+ - Dynamic Portal ID Completed 04/23/2013 Visit Plan: Decrease Lasix to 20mg daily Leave potassium at 20meq daily Check Chem 7 in 1wk 03/31/2013 Appointment: Jayna Vanessa WPtel: [address] [place], [place] [phone] FOLLOW UP 03/31/2013 Patient Education: Patient Medication Summary Completed 03/31/2013 Appointment: Conchita Capone WPtel: [address] [place], [place] [phone] ACUTE ILLNESS 03/05/2013 Patient Education: Patient Medication Summary Completed 03/05/2013 Visit Plan: Lab discussed Continue curre nt meds Pt is going to start allergy injections Go for port placement to continue prolastin infusions 02/04/2013 Appointment: Jayna Vanessa WPtel: [address] [place], [place] [phone] ACUTE ILLNESS 02/04/2013 Patient Education: Patient Medication Summary Completed 02/04/2013 Visit Plan: 2-D ECHO discussed See Pulmo nology Pt states cough had went away with allergy meds and then has came back Continue allergy meds and add pepcid BID Discussed allergy testing 11/27/2012 Appointment: Jayna Vanessa WPtel: [phone] [phone] FOLLOW UP 11/27/2012 Patient Education: Patient Medication Summary Completed 11/27/2012 Visit Plan: PFTS discussed Proceed with 2-D ECHO and pulmonology evaluation Pt was concerned propranolol could be cause but discussed this is likely not culpri HOMERO was DCed in 2009, is on PPI, has seen ENT, will restart allergy meds--may need allergy testing 11/11/2012 Appointment: Jayna Vanessa WPtel: [address] [place], [place] [phone] FOLLOW UP 11/11/2012 Patient Education: Patient Medication Summary Completed 11/11/2012 Visit Plan: Hold metformin Check CMP, Li pids, TSH, Free T4, HbA1C Check PFTs 10/20/2012 Appointment: Jayna Vanessa WPtel: [address] [place], [place] [phone] 10/17 left message FOLLOW UP 10/20/2012 Patient Education: Patient Medication Summary Completed 10/20/2012 Appointment: Jayna Vanessa WPtel: [address] [place], [place] [phone] 10/13 FOLLOW UP 10/14/2012 Visit Plan: Discussed fluids and rest. W ill monitor for worsening symptoms/fever. Azithromycin, medrol dose pack and refil on cough syrup. Pt. will notify if symptoms worsen or persist. 09/03/2012 Appointment: Lizzie Kelly WPtel: [phone] [facility] ACUTE ILLNESS 09/03/2012 Patient Education: Patient Medication Summary Completed 09/03/2012 Visit Plan: discussed that symptoms star edvin around [place] time. Will begin culturelle BID and monitor for fever or worsening symptoms. Fluid intake important. CBC, CMP, sed rate and stool studies. Order written for Mag lab. 07/23/2012 Appointment: Lizzie Kelly WPtel: [address] [place], [place] [phone] ACUTE ILLNESS 07/23/2012 Patient Education: Patient Medication Summary Completed 07/23/2012 Visit Plan: Increase Metformin to 1000mg po BID Accuchecks daily Continue rest of meds at current dose and low-fat, low-sugar diet with increased exercise Check fasting lab in 4mos Restart Nexium 05/20/2012 Appointment: Jayna Vanessa WPtel: [address] [place], [place] [phone] patient had bad night so missed 05/06 appt...left voicemail 05/19 FOLLOW UP 05/20/2012 Patient Education: Patient Medication Summary Completed 05/20/2012 Appointment: Jayna Vanessa WPtel: [address] [place], [place] [phone] patient had bad night so missed 05/06 appt time. cn FOLLOW UP 05/06/2012 Appointment: Galina Leos WPtel: [address] [place], [place] [phone] ACUTE ILLNESS 04/04/2012 Patient Education: Patient Medication Summary Completed 04/04/2012 Visit Plan: Cryotherapy as above 02/20/2012 Appointment: Jayna Vanessa WPtel: [address] [place], [place] [phone] 02/18 OFFICE SURGERY 02/20/2012 Patient Education: Patient Medication Summary Completed 02/20/2012 Visit Plan: Increase Metfromin to 1000mg daily Continue all other current meds 01/02/2012 Appointment: Jayna Vanessa WPtel: [address] [place] [address] FOLLOW UP 01/02/2012 Patient Education: Patient Medication Summary Completed 01/02/2012 Appointment: Lizzie Kelly WPtel: [address] [place] [address] ACUTE ILLNESS 09/04/2011 Patient Education: Patient Medication Summary Completed 09/04/2011 Visit Plan: Finish Keflex Proceed with c olonoscopy Increase aspirin to 325mg daily for next 2wks Add Vimovo 20/500mg po Daily 08/14/2011 Appointment: Jayna Vanessa WPtel: [address] [place] [address] Follow Up 08/14/2011 Patient Education: Patient Medication Summary Completed 08/14/2011 Appointment: Lizzie Kelly WPtel: [address] [place] [address] ACUTE ILLNESS 07/31/2011 Patient Education: Patient Medication Summary Completed 07/31/2011 Visit Plan: Doxy and steroids. Codeine/g uiaf cough syrup. Pt. will monitor for worsening symptoms and notify if fever occurs. Encouraged rest and fluids. 07/25/2011 Appointment: Lizzie Kelly WPtel: [address] [place] [address] ACUTE ILLNESS 07/25/2011 Patient Education: Patient Medication Summary Completed 07/25/2011 Visit Plan: Check full lab in 3mos Radha nue with all current meds Continue PT for knee 07/12/2011 Appointment: Jayna Vanessa WPtel: [address] [place], [place] [phone] FOLLOW UP 07/12/2011 Patient Education: Patient Medication Summary Completed 07/12/2011 Visit Plan: Continue symbicort for 2 mor e weeks 05/09/2011 Appointment: Jayna Vanessa WPtel: [address] [place] [phone] [place] [address] FOLLOW UP 05/09/2011 Patient Education: Patient Medication Summary Completed 05/09/2011 Appointment: Jayna Vanessa WPtel: [address] [place] [phone] [place] [address] ER Follow UP 05/02/2011 Patient Education: Patient Medication Summary Completed 05/02/2011 Visit Plan: Pt. has recently finished ro und of Cefdinir with no improvement. Chest x-ray, CBC, CMP and mycoplasma order given to pt. Pt. will start Doxycycline. 04/25/2011 Appointment: Lizzie Kelly WPtel: [address] [place] [address] FOLLOW UP 04/25/2011 Patient Education: Patient Medication Summary Completed 04/25/2011 Appointment: Lizzie Kelly WPtel: [address] [place] [address] ACUTE ILLNESS 04/04/2011 Patient Education: Patient Medication Summary Completed 04/04/2011 Appointment: Lizzie Kelly WPtel: [address] [place] [address] ACUTE ILLNESS 04/03/2011 Visit Plan: Decrease Synthroid to 150mcg daily Repeat TSH and Free T4 in 2mos Knee injection as above 03/01/2011 Appointment: Jayna Vanessa WPtel: [address] [place] [phone] [place] [address] 03/01/2011 Patient Education: Patient Medication Summary Completed 03/01/2011 Visit Plan: Increase Synthroid to 175mcg po daily Check TSH, Free T4 in 8wks Injection given to knee as above Continue Pt 01/04/2011 Appointment: Jayna Vanessa WPtel: [address] [place], [place] [phone] FOLLOW UP 01/04/2011 Patient Education: Patient Medication Summary Completed 01/04/2011 Visit Plan: Septra DS, Mupirocin topical . Pt. will observe wound and report worsening symptoms. 12/07/2010 Appointment: Lizzie Kelly WPtel: [address] [place], [place] [phone] ACUTE ILLNESS 12/07/2010 Patient Education: Patient Medication Summary Completed 12/07/2010 Visit Plan: Increase Synthroid to 150mcg po daily Add Metformin Diet and exercise discussed at length again Repeat thyroid US Add Vit D level Will see if polydipsia improves with metformin 10/09/2010 Appointment: Jayna Vanessa WPtel: [address] [place], [place] [phone] FOLLOW UP 10/09/2010 Patient Education: Patient Medication Summary Completed 10/09/2010 Visit Plan: Increase Synthroid to 125mcg daily Decrease Vit D 50,000 u three times a week Discussed HRT Proceed with sleep study Fwup pending sleep study results 08/07/2010 Appointment: Jayna Vanessa WPtel: [address] [place], [place] [phone] FOLLOW UP 08/07/2010 Patient Education: Patient Medication Summary Completed 08/07/2010 Visit Plan: Decrease Synthroid to 100mcg QD Check thyroid lab in 2mos Check estradiol levels in 2mos--discussed HRT Increase Vit D 50,000u to 1 daily M-F 06/06/2010 Appointment: Jayna Vanessa WPtel: [address] [place], [place] [phone] ACUTE ILLNESS 06/06/2010 Patient Education: Patient Medication Summary Completed 06/06/2010 Visit Plan: Injections to knees as above 04/12/2010 Appointment: Jayna Vanessa WPtel: [address] [place], [place] [phone] OFFICE SURGERY 04/12/2010 Patient Education: Patient Medication Summary Completed 04/12/2010 Visit Plan: Decrease Synthroid to 175mcg QD Check lab in 2mos Change daily Vit D to weekly 03/20/2010 Appointment: Jayna Vanessa WPtel: [address] [place], [place] [phone] ESTABLISHED PATIENT 03/20/2010 Patient Education: Patient Medication Summary Completed 03/20/2010 Appointment: Jayna Vanessa WPtel: [phone] [phone] ACUTE ILLNESS 01/30/2010 Patient Education: Patient Medication Summary Completed 01/30/2010 Appointment: Jayna Vanessa WPtel: [phone] [phone] ACUTE ILLNESS 01/09/2010 Patient Education: Patient Medication Summary Completed 01/09/2010 Appointment: Jayna Vanessa WPtel: [phone] [phone] BP CHECK 11/07/2009 Patient Education: Patient Medication Summary Completed 11/07/2009 Appointment: Jayna Vanessa WPtel: [phone] [phone] OFFICE SURGERY 10/26/2009 Patient Education: Patient Medication Summary Completed 10/26/2009 Appointment: Lizzie Kelly WPtel: [address] [place], [place] [phone] OFFICE SURGERY 10/17/2009 Patient Education: Patient Medication [...] up appnt. 10/04/2009 Appointment: Lizzie Kelly WPtel: [address] [place], [place] [phone] ACUTE ILLNESS 10/04/2009 Patient Education: Patient Medication Summary Completed 10/04/2009 Visit Plan: E-scribed refils. Pt. report s that she normally has lab work drawn and orders are given (faxed) to her normal lab facility by Patricia. Pt. states her migraine headaches have abated for now and that she is going to see her migraine doctor in [place] in the near future(Dr Cook) Pt will seek re-eval as necessary for acute issues. 09/21/2009 Appointment: Lizzie Kelly WPtel: [phone] [facility] [place] CHECK UP 09/21/2009 Patient Education: Patient Medication Summary Completed 09/21/2009 Appointment: Lizzie Kelly WPtel: [phone] [facility] US CHECK UP 09/20/2009 Appointment: Lizzie Kelly WPtel: [phone] [facility] [place] FOLLOW UP 09/19/2009 Referral: Alf Lang WPtel: [address] [place] [address] [place] Referral Appointment Requested Referral: Singh Pina WPtel: [address] [facility] [place] Referral Appointment Requested Referral: Aditya Stone WPtel: [address] [facility] [address] [id number] [place] Referral Appointment Requested Instructions Comment Date [...] to 175mcg Check Lab and fwup in [facility] Flu shot given 03/28/2015 . [...] 09/03/2012 . discussed that symptoms started around [place] time. Will begin culturelle BID and monitor [...] going to see her migraine doctor in [place] in the near future(Dr Cook) Pt will [...]
--- OUTSIDE RECORDS SUMMARY | 2022-09-10 17:05 | XMS REPORT | CCD ---
Author Author Marcella Vanessa D.O. Organization [facility]NA [facility]ES[facility] Address [address] [place] [address] Phone Care Team Providers Care Exercise Specialist Name Role Phone Jayna Vanessa D.O., PP Unavailable CCM Unavailable Summary Purpose Interface Exchange Insurance Providers Payer name Policy type / Coverage type Covered green party ID Effective Begin Date Effective End Date [employer] Commercial Insurance [id number] Unknown Commercial Insurance [id number] Unknown Family history Side Diagnosis Age At Onset Heart disease Unknown Diabetes Unknown Sister Diagnosis Age At Onset Diabetes Unknown Brother Diagnosis Age At Onset Diabetes Unknown Mother Diagnosis Age At Onset Heart disease Unknown Father Diagnosis Age At Onset Heart disease Unknown Social History Social History Element Codes Description Effective Dates Tobacco history SNOMED CT: 153397227 Never smoker 04/04/2011 Marital status Unknown 09/21/2009 [...] Problems Condition Codes Effective Dates Condition Status Cervicalgia ICD-10: M54.2 ICD-9: 723.1 10/16/2017 Active Degeneration of lumbar or lumbosacral intervertebral d isc ICD-10: M51.37 ICD-9: 722.52 08/30/2022 Active Essential (primary) hypertension ICD-10: I10 ICD-9: 401.9 11/24/2013 Active Hypothyroidism ICD-10: E03.9 ICD-9: 244.9 11/24/2013 Active Mixed hyperlipidemia ICD-10: E78.2 ICD-9: 272.4 11/24/2013 Active Stress at home ICD-10: F43.9 ICD-9: V61.9 08/07/2022 Active Acute cystitis ICD-10: N30.00 ICD-9: 595.0 06/29/2022 Active Depression ICD-10: F32.A ICD-9: 311 05/10/2022 [...] gastroenteritis ICD-10: K52.9 ICD-9: 558.9 07/05/2020 Active 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 ICD-9: 273.4 11/28/2016 Active [...] ANXIETY STATE NOS ICD-9: 300.00 03/05/2013 Active 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 02/04/2013 A ctive DYSPNEA [...] Start Date Stop Date Status Fill Instructions bupropion HCl XL 300 mg 24 hr tablet, extended release RxNor m: 069583 TAKE 1 Tablet BY MOUTH DAILY IN THE MORNING (replaces 150mg DOSE) 08/29/2022 02/24/2023 Active levothyroxine 150 mcg tablet RxNorm: 941191 TAKE ONE TA BLET BY MOUTH EVERY IN THE MORNING 08/29/2022 02/24/2023 Active ciprofloxacin 250 mg tablet RxNorm: 852451 Take 1 Tablet(s) Ora l Q12H 06/29/2022 07/03/2022 Inactive levothyroxine 150 mcg tablet RxNorm: 564260 Take 1 Tablet(s) Or al QAM 06/03/2022 06/03/2022 Inactive Wellbutrin XL 300 mg 24 hr tablet, extended release RxNorm: 611840 Take 1 Tablet(s) Oral QAM replaces 150mg dose 05/28/2022 05/28/2022 Inactive Xyzal 5 mg tablet RxNorm: 601977 Take 1 Tablet(s) Oral QPM 05/10/2010/06/2022 Active Claritin 10 mg tablet RxNorm: 186567 Take 1 Tablet(s) Oral QAM 04/2409/06/2022 Active Flonase Allergy Relief 50 mcg/actuation nasal spray,suspensi on RxNorm: 2550330 Take 1 Broussard Nasal two times a day 05/10/2022 06/08/2022 Inactive Wellbutrin XL 150 mg 24 hr tablet, extended release RxNorm: 304301 Take 1 Tablet(s) Oral QAM 05/10/2022 05/27/2022 Inactive sumatriptan 100 mg tablet RxNorm: 762584 1 Tablet(s) Or al after onset of migraine; may repeat after 2 hours if headache returns, not to exceed 200mg in 24hrs replaces rizatriptan 04/19/2022 04/19/2022 Inactive sumatriptan 100 mg tablet RxNorm: 289169 1 Tablet(s) Or al after onset of migraine; may repeat after 2 hours if headache returns, not to exceed 200mg in 24hrs replaces rizatriptan 04/19/2022 04/19/2022 Inactive propranolol 20 mg tablet RxNorm: 291179 TAKE 1 TABLET BY MOUTH TWICE DAILY 04/18/2022 10/14/2022 Active rizatriptan 10 mg disintegrating tablet RxNorm: 554025 Take 1 Tablet(s) Oral on top of tongue, allow to dissolve then swallow once, may repeat every 2 hrs; max 30 mg/24hrs 04/18/2022 04/18/2022 Inactive prednisone 20 mg tablet RxNorm: 501537 Take 1 Tablet(s) Oral tw o times a day 02/15/2022 02/21/2022 Inactive Nurtec ODT 75 mg disintegrating tablet RxNorm: 9346609 T bria 1 Tablet(s) Oral per 24 hours as needed for migraine 02/09/2022 02/09/2022 Inactive Nurtec ODT 75 mg disintegrating tablet RxNorm: 2255844 T bria 1 Tablet(s) Oral per 24 hours as needed for migraine 02/09/2022 02/09/2022 Inactive fluticasone propionate 50 mcg/actuation nasal spray,suspensi on RxNorm: 6966698 SPRAY ONE SPRAY IN EACH NOSTRIL TWICE DAILY NEEDED 02/05/20222021 Inactive levothyroxine 150 mcg tablet RxNorm: 599194 Take 1 Tablet(s) Or al QAM 02/04/2022 02/04/2022 Inactive albuterol sulfate HFA 90 mcg/actuation aerosol inhaler RxNor m: 6349236 Inhale 2 Puff(s) Oral Q4H as needed 01/05/2022 04/04/2022 Inactive pantoprazole 40 mg tablet,delayed release RxNorm: 531346 Take 1 Tablet(s) Oral QD 01/04/2022 07/02/2022 Inactive propranolol 20 mg tablet RxNorm: 796722 TAKE 1 TABLET BY MOUTH TWICE DAILY 01/04/2022 04/17/2022 Inactive levothyroxine 150 mcg tablet RxNorm: 336929 Take 1 Tablet(s) Or al QAM 12/05/2021 12/05/2021 Inactive metronidazole 500 mg tablet RxNorm: 749611 Take 1 Table t(s) Oral two times a day 11/29/2021 12/05/2021 Inactive Singulair 10 mg tablet RxNorm: 955723 Take 1 Tablet(s) Oral QPM 06/202105/09/2022 Inactive Diflucan 100 mg tablet RxNorm: 864473 Take 1 Tablet(s) Oral QD 06/06/202111/28/2021 Inactive pantoprazole 40 mg tablet,delayed release RxNorm: 491418 Take 1 Tablet(s) Oral QD 11/06/2021 11/06/2021 Inactive fluticasone propionate 50 mcg/actuation nasal spray,suspensi on RxNorm: 1219011 SPRAY ONE SPRAY IN EACH NOSTRIL TWICE DAILY NEEDED 11/03/20212021 Inactive scopolamine 1 mg over 3 days transdermal patch RxNorm: 75962 2 Apply 1 Unit Dose Transdermal Q72H behind ear 10/30/2021 02/05/2022 Inactive albuterol sulfate HFA 90 mcg/actuation aerosol inhaler RxNor m: 4716527 Inhale 2 Puff(s) Oral Q4H as needed 10/05/2021 11/24/2021 Inactive pantoprazole 40 mg tablet,delayed release RxNorm: 069662 Take 1 Tablet(s) Oral QD 10/05/2021 10/05/2021 Inactive meloxicam 7.5 mg tablet RxNorm: 303065 Take 1 Tablet(s) Oral QD for pain 09/05/2021 09/11/2021 Inactive baclofen 10 mg tablet RxNorm: 784343 Take 0.5-1 Tablet( s) Oral three times per week as needed for muscle spasm 09/05/2021 02/05/2022 Inactive prednisone 20 mg tablet RxNorm: 182774 Take 1 Tablet(s) Oral QD 08/202108/28/2021 Inactive pantoprazole 40 mg tablet,delayed release RxNorm: 339614 Take 1 Tablet(s) Oral QD 07/07/2021 09/04/2021 Inactive fluticasone propionate 50 mcg/actuation nasal spray,suspensi on RxNorm: 1996454 Take 1 Broussard Nasal two times a day in each nostrilas needed 07/04/2021 10/01/2021 Inactive Decadron 6 mg tablet RxNorm: 455896 Take 1 Tablet(s) Oral QD 202107/08/2021 Inactive albuterol sulfate HFA 90 mcg/actuation aerosol inhaler RxNor m: 6767730 Inhale 2 Puff(s) Oral Q4H as needed 06/08/2021 09/05/2021 Inactive propranolol 20 mg tablet RxNorm: 841405 TAKE 1 TABLET BY MOUTH TWICE DAILY 06/08/2021 06/08/2021 Inactive pantoprazole 40 mg tablet,delayed release RxNorm: 465415 Take 1 Tablet(s) Oral QD 04/09/2021 06/07/2021 Inactive ProAir HFA 90 mcg/actuation aerosol inhaler RxNorm: 901504 2 Puff(s) Inhalation Q4H as needed 03/13/2021 03/13/2021 Inactive citalopram 10 mg tablet RxNorm: 411238 1 Tablet(s) Oral two antonio es a day 03/13/2021 02/05/2022 Inactive levothyroxine 150 mcg tablet RxNorm: 749264 TAKE 1 Tabl et BY MOUTH EVERY MORNING (REPLACES 137 MCG DOSE) 03/09/2021 03/09/2021 Inactive pantoprazole 40 mg tablet,delayed release RxNorm: 175334 Take 1 Tablet(s) Oral QD 02/08/2021 04/08/2021 Inactive triamcinolone acetonide 0.1 % topical cream RxNorm: 4503948 Take Application Topical two times a day to arm rash 01/19/2021 01/19/2021 Inactive prednisone 20 mg tablet RxNorm: 367814 Take 1 Tablet(s) Oral QD 01/23/2021 Inactive levothyroxine 150 mcg tablet RxNorm: 667908 Take 1 Tabl et(s) Oral QAM replaces 137mcg dose 01/03/2021 01/03/2021 Inactive prednisone 20 mg tablet RxNorm: 659379 Take 2 Tablet(s) Oral QD 01/202112/03/2020 Inactive promethazine-DM 6.25 mg-15 mg/5 mL oral syrup RxNorm: 325444 Take 5 Milliliter(s) Oral Every 6 hours as needed, not to exceed 30 mL in 24 hours 11/29/2020 12/03/2020 Inactive doxycycline hyclate 100 mg capsule RxNorm: 4722681 1 Cap kimi(s) Oral two times a day 09/29/2020 10/05/2020 Inactive Lalita-D 12 Hour 60 mg-120 mg tablet,extended release RxNor m: 756990 1 Tablet(s) Oral QD 09/19/2020 10/03/2020 Inactive ProAir HFA 90 mcg/actuation aerosol inhaler RxNorm: 409984 2 Inhalation Q4H as needed 09/19/2020 09/19/2020 Inactive propranolol 20 mg tablet RxNorm: 030540 TAKE 1 TABLET BY MOUTH TWICE DAILY 09/15/2020 09/15/2020 Inactive pantoprazole 40 mg tablet,delayed release RxNorm: 317151 1 Tabl et(s) Oral QD 09/09/2020 09/08/2020 Inactive pantoprazole 40 mg tablet,delayed release RxNorm: 046061 1 Tabl et(s) Oral QD 09/09/2020 11/07/2020 Inactive propranolol 20 mg tablet RxNorm: 622992 TAKE 1 TABLET BY MOUTH TWICE DAILY 08/24/2020 09/09/2020 Inactive levothyroxine 137 mcg tablet RxNorm: 434034 1 Tablet(s) Oral QD 08/202001/02/2021 Inactive piqbfbkr-sqaqdowml-qkmfibrf 3.5 mg/mL-10,000 unit/mL-0 .1% eye drops RxNorm: 544745 4 Drop(s) Otic three times a day 08/10/2020 02/05/2022 Inactive prednisone 20 mg tablet RxNorm: 386907 1 Tablet(s) Oral two antonio es a day 08/01/2020 08/08/2020 Inactive pantoprazole 40 mg tablet,delayed release RxNorm: 482759 1 Tabl et(s) Oral QD 07/13/2020 09/08/2020 Inactive ondansetron HCl 4 mg tablet RxNorm: 080102 1 Tablet(s) Oral Q4H as needed for nausea 07/13/2020 05/09/2022 Inactive levothyroxine 137 mcg tablet RxNorm: 785591 1 Tablet(s) Oral QD 08/23/2020 Inactive pantoprazole 40 mg tablet,delayed release RxNorm: 927127 1 Tabl et(s) Oral QD 07/13/2020 07/12/2020 Inactive ondansetron HCl 4 mg tablet RxNorm: 611288 1 Tablet(s) Oral Q4H as needed for nausea 07/05/2020 07/12/2020 Inactive Flagyl 500 mg tablet RxNorm: 540368 1 Tablet(s) Oral three time s a day 07/05/2020 07/12/2020 Inactive Fish Oil 1,000 mg (120 mg-180 mg) capsule RxNorm: 1 Caps ule(s) Oral QD 06/23/2020 09/18/2020 Inactive rosuvastatin 10 mg tablet RxNorm: 568788 1 Tablet(s) Oral MWF 06/2306/22/2020 Inactive rosuvastatin 10 mg tablet RxNorm: 335903 1 Tablet(s) Oral MWF 06/2302/05/2022 Inactive fluconazole 100 mg tablet RxNorm: 074433 1 Tablet(s) Oral QOD 05/1706/21/2020 Inactive Macrobid 100 mg capsule RxNorm: 584270 1 Capsule(s) Oral two ti mes a day 05/17/2020 05/24/2020 Inactive levothyroxine 137 mcg tablet RxNorm: 346621 TAKE 1 TABLET BY MO UTH ONCE DAILY 05/16/2020 07/12/2020 Inactive Eliquis 5 mg tablet RxNorm: 4947520 1 Tablet(s) Oral two times a da y 04/25/2020 02/05/2022 Inactive propranolol 20 mg tablet RxNorm: 931358 TAKE 1 TABLET BY MOUTH TWICE DAILY 04/25/2020 08/23/2020 Inactive doxycycline hyclate 100 mg capsule RxNorm: 0283431 1 Cap kimi(s) Oral two times a day 03/24/2020 03/31/2020 Inactive doxycycline hyclate 100 mg capsule RxNorm: 2069536 1 Cap kimi(s) Oral two times a day 03/24/2020 03/23/2020 Inactive propranolol 20 mg tablet RxNorm: 829420 TAKE 1 TABLET BY MOUTH TWICE DAILY 03/15/2020 04/13/2020 Inactive Eliquis 5 mg tablet RxNorm: 8983362 1 Tablet(s) Oral two times a da y 03/14/2020 04/24/2020 Inactive Eliquis 5 mg tablet RxNorm: 3074763 1 Tablet(s) Oral two times a da y 03/14/2020 03/13/2020 Inactive levofloxacin 500 mg tablet RxNorm: 248242 1 Tablet(s) Oral QD 02/1802/26/2020 Inactive levofloxacin 500 mg tablet RxNorm: 108041 1 Tablet(s) Oral QD 02/1802/18/2020 Inactive Tessalon Perles 100 mg capsule RxNorm: 928486 1 Capsule (s) Oral three times a day as needed 02/16/2020 02/25/2020 Inactive levothyroxine 137 mcg tablet RxNorm: 108812 TAKE 1 TABLET BY [facility] ONCE DAILY 02/15/2020 03/15/2020 Inactive ProAir HFA 90 mcg/actuation aerosol inhaler RxNorm: 936349 2 Inhalation Q4H as needed 02/11/2020 09/18/2020 Inactive Medrol (Isaiah) 4 mg tablets in a dose pack RxNorm: 970487 Tablet( s) Oral 02/11/2020 02/11/2020 Inactive levothyroxine 137 mcg tablet RxNorm: 838385 TAKE 1 TABLET BY [facility] ONCE DAILY 12/16/2019 01/14/2020 Inactive propranolol 20 mg tablet RxNorm: 048745 TAKE 1 TABLET BY MOUTH TWICE DAILY 12/16/2019 01/14/2020 Inactive levothyroxine 137 mcg tablet RxNorm: 276356 TAKE 1 TABLET BY [facility] ONCE DAILY 10/16/2019 11/14/2019 Inactive prednisone 20 mg tablet RxNorm: 198563 1 Tablet(s) Oral two times a day for rash/hives 09/29/2019 10/04/2019 Inactive Probiotic 10 billion cell capsule RxNorm: 8501419 1 Capsule(s) O ral QD 09/14/2019 02/10/2020 Inactive Bactrim DS 800 mg-160 mg tablet RxNorm: 368991 1 Tablet(s) Oral two times a day 09/14/2019 09/13/2019 Inactive citalopram 10 mg tablet RxNorm: 933394 1 Tablet(s) Oral two antonio es a day 09/14/2019 12/20/2019 Inactive hydroxychloroquine 200 mg tablet RxNorm: 047813 1 Table t(s) Oral two times a day 09/14/2019 02/05/2022 Inactive Bactrim DS 800 mg-160 mg tablet RxNorm: 130255 1 Tablet(s) Oral two times a day 09/14/2019 09/24/2019 Inactive Cipro 250 mg tablet RxNorm: 723836 1 Tablet(s) Oral two times a day 09/02/2019 09/08/2019 Inactive levothyroxine 137 mcg tablet RxNorm: 854426 1 Tablet(s) Oral QD 10/10/2019 Inactive levothyroxine 137 mcg tablet RxNorm: 864178 1 Tablet(s) Oral QD 08/11/2019 Inactive propranolol 20 mg tablet RxNorm: 654393 TAKE 1 TABLET BY MOUTH TWICE DAILY 06/18/2019 12/14/2019 Inactive 06/18/2019 11:09:41 AM Cipro 250 mg tablet RxNorm: 465992 1 Tablet(s) Oral two times a day 04/17/2019 04/16/2019 Inactive Cipro 250 mg tablet RxNorm: 128768 1 Tablet(s) Oral two times a day 04/17/2019 04/24/2019 Inactive Macrobid 100 mg capsule RxNorm: 708935 1 Capsule(s) Oral two ti mes a day 04/15/2019 04/16/2019 Inactive metronidazole 500 mg tablet RxNorm: 600749 1 Tablet(s) Oral thr ee times a day 03/18/2019 03/28/2019 Inactive Bactrim DS 800 mg-160 mg tablet RxNorm: 663738 1 Tablet(s) Oral two times a day 03/18/2019 03/18/2019 Inactive Cipro 250 mg tablet RxNorm: 299411 1 Tablet(s) PO BID 01/26/201901/22 Inactive Flagyl 500 mg tablet RxNorm: 033717 1 Tablet(s) PO TID 01/26/201904/2019 Inactive prednisone 20 mg tablet RxNorm: 098031 1 Tablet(s) PO B ID for 4 days then 1 po daily for 4 days 01/08/2019 03/17/2019 Inactive doxycycline hyclate 100 mg capsule RxNorm: 7088367 1 Capsule(s) PO BID 01/08/2019 01/14/2019 Inactive doxycycline hyclate 100 mg capsule RxNorm: 2150905 1 Capsule(s) PO BID 01/08/2019 01/07/2019 Inactive propranolol 20 mg tablet RxNorm: 093974 1 Tablet(s) PO BID 12/24/1906/17/2019 Inactive Bactrim DS 800 mg-160 mg tablet RxNorm: 482067 1 Tablet (s) PO BID repeat urine culture 48 hours after antibiotics completed. 12/15/2018 12/14/2018 In active Bactrim DS 800 mg-160 mg tablet RxNorm: 419707 1 Tablet (s) PO BID repeat urine culture 48 hours after antibiotics completed. 12/15/2018 12/19/2018 In active levothyroxine 137 mcg tablet RxNorm: 706304 1 Tablet(s) PO QD 12/0906/06/2019 Inactive meclizine 25 mg tablet RxNorm: 588739 1 Tablet(s) PO TID for di zziness 10/30/2018 11/08/2018 Inactive doxycycline hyclate 100 mg tablet RxNorm: 6097861 1 Tablet(s) PO BI D 10/07/2018 10/16/2018 Inactive albuterol sulfate HFA 90 mcg/actuation aerosol inhaler RxNor m: 822390 2 Puff(s) INH Q4H as needed 10/07/2018 02/10/2020 Inactive chlorpheniramine 4 mg tablet RxNorm: 8514644 1 Tablet(s) PO QHS for allergies 10/07/2018 03/17/2019 Inactive Tessalon 200 mg capsule RxNorm: 866373 1 Capsule(s) PO TID 10/08/1910/26/2018 Inactive doxycycline hyclate 100 mg tablet RxNorm: 9783097 1 Tablet(s) PO BI D 10/07/2018 10/06/2018 Inactive Tessalon 200 mg capsule RxNorm: 051393 1 Capsule(s) PO TID 10/08/1910/06/2018 Inactive levothyroxine 137 mcg tablet RxNorm: 530209 1 Tablet(s) PO QD 08/0512/02/2018 Inactive propranolol 20 mg tablet RxNorm: 267281 1 Tablet(s) PO BID 06/23/2012/19/2018 Inactive chlorpheniramine 4 mg tablet RxNorm: 1760415 1 Tablet(s) PO QHS for allergies 06/23/2018 08/21/2018 Inactive levothyroxine 137 mcg tablet RxNorm: 684247 1 Tablet(s) PO QD 06/0308/01/2018 Inactive levothyroxine 137 mcg tablet RxNorm: 432259 1 Tablet(s) PO QD 06/0306/02/2018 Inactive Synthroid 150 mcg tablet RxNorm: 565796 1 Tablet(s) PO QD 04/03/2018 06/22/2018 Inactive Synthroid 150 mcg tablet RxNorm: 622212 1 Tablet(s) PO QD 04/03/2018 04/02/2018 Inactive propranolol 20 mg tablet RxNorm: 873253 1 Tablet(s) PO BID 03/17/20 18 06/14/2018 Inactive propranolol 20 mg tablet RxNorm: 687478 1 Tablet(s) PO BID 03/17/20 18 06/21/2020 Inactive Lancets,Ultra Thin RxNorm: Miscellaneous Use to test blood sugar daily and as needed (Dx: E11.65) 02/28/2018 05/09/2022 Inactive Contour Test Strips RxNorm: Miscellaneous Test b lood sugar daily and as needed (Dx: E11.65) 02/28/2018 05/09/2022 Inactive Contour Meter RxNorm: 1 Miscellaneous DX: E11.65 02/27/20182021 Inactive DX: E11.65 Synthroid 175 mcg tablet RxNorm: 807752 1 Tablet(s) PO QD 01/28/2018 04/02/2018 Inactive Synthroid 175 mcg tablet RxNorm: 711797 1 Tablet(s) PO QD 01/16/2018 04/02/2018 Inactive Medrol (Isaiah) 4 mg tablets in a dose pack RxNorm: 659531 Tablet(s) P O 10/16/2017 01/15/2018 Inactive cyclobenzaprine 7.5 mg tablet RxNorm: 813805 1/2-1 Tablet(s) PO TID as needed 10/16/2017 06/22/2018 Inactive pantoprazole 40 mg tablet,delayed release RxNorm: 995721 1 Tabl et(s) PO QD 08/21/2017 06/22/2018 Inactive Nexium 40 mg capsule,delayed release RxNorm: 761965 1 Capsule(s ) PO QD 08/20/2017 08/20/2017 Inactive doxycycline hyclate 100 mg capsule RxNorm: 3836936 1 Capsule(s) PO BID 08/13/2017 08/12/2017 Inactive doxycycline hyclate 100 mg capsule RxNorm: 6192727 1 Capsule(s) PO BID 08/13/2017 08/19/2017 Inactive Tessalon Perles 100 mg capsule RxNorm: 551873 1 Capsule(s) PO T ID as needed 07/29/2017 08/07/2017 Inactive prednisone 20 mg tablet RxNorm: 093901 1 Tablet(s) PO BID 07/25/2017 07/27/2017 Inactive albuterol sulfate HFA 90 mcg/actuation aerosol inhaler RxNor m: 096225 2 Puff(s) INH Q4H as needed 07/25/2017 10/06/2018 Inactive doxycycline hyclate 100 mg capsule RxNorm: 6083380 1 Capsule(s) PO BID 06/10/2017 06/19/2017 Inactive prednisone 20 mg tablet RxNorm: 464730 1 Tablet(s) PO T ID for 2 days then 1 po BID for 2 days then 1 daily for 3 days 06/10/2017 08/12/2017 Inactive fenofibrate micronized 134 mg capsule RxNorm: 304666 TAKE 1 CAP KIMI DAILY 06/03/2017 06/22/2018 Inactive Zithromax Z-Isaiah 250 mg tablet RxNorm: 988949 Tablet(s) PO Take as directed 05/28/2017 06/09/2017 Inactive prednisone 20 mg tablet RxNorm: 330381 2 Tablet(s) PO QD 05/28/2017 1 08/01/2016 Inactive Tessalon Perles 100 mg capsule RxNorm: 906161 1 Capsule(s) PO T ID as needed 05/28/2017 06/09/2017 Inactive Janumet XR 100 mg-1,000 mg tablet,extended release RxNorm: 1 567937 1 Tablet(s) PO QD 02/14/2017 06/22/2018 Inactive fluoxetine 40 mg capsule RxNorm: 007366 1 Capsule(s) PO QD 02/15/20 17 06/22/2018 Inactive Vitamin D2 50,000 unit capsule RxNorm: 792286 1 Capsule (s) PO TAKE 1 CAPSULE BY MOUTH TWICE WEEKLY 02/11/2017 07/10/2017 Inactive Generic For:* DRISDOL [id number] 02/03/2015 10:10:59 AM Janumet XR 100 mg-1,000 mg tablet,extended release RxNorm: 1 977644 1 Tablet(s) PO QD 09/24/2016 10/06/2018 Inactive Vitamin D2 50,000 unit capsule RxNorm: 908653 Capsule(s ) TAKE 1 CAPSULE BY MOUTH TWICE WEEKLY 09/11/2016 02/11/2017 Inactive Generic For:*VERN FREEDMAN [id number] 02/03/2015 10:10:59 AM Pepcid 20 mg tablet RxNorm: 524140 Tablet(s) PO TAKE 1 TABLET BY MOUTH TWICE DAILY. 06/14/2016 06/13/2016 Inactive fluoxetine 40 mg capsule RxNorm: 499665 1 Capsule(s) PO QD 06/14/20 16 12/10/2016 Inactive loratadine 10 mg tablet RxNorm: 887161 1 Tablet(s) PO QD 1 Tabl et(s) PO BID 06/14/2016 04/03/2017 Inactive [AttnRPh: Saving ryan ly/adjudicate RxGRP:SG20 RxBIN:[id number] RxPCN: ID#:[id number]] Vitamin D2 50,000 unit capsule RxNorm: 501425 Capsule(s ) TAKE 1 CAPSULE BY MOUTH TWICE WEEKLY 06/14/2016 09/10/2016 Inactive Generic For:*VERN FREEDMAN [id number] 02/03/2015 10:10:59 AM Synthroid 175 mcg tablet RxNorm: 301817 1 Tablet(s) PO Saturday t hrough Saturday QD 06/05/2016 01/15/2018 Inactive Synthroid 150 mcg tablet RxNorm: 934380 1 Tablet(s) PO Sat and Sun 11/09/2015 06/04/2016 Inactive Synthroid 175 mcg tablet RxNorm: 971957 1 Tablet(s) PO Saturday t hrough Saturday11/09/2015 06/04/2016 Inactive Synthroid 150 mcg tablet RxNorm: 808200 1 Tablet(s) PO Sat and Sun , Sat, Sun 11/09/2015 11/08/2015 Inactive Janumet XR 100 mg-1,000 mg tablet,extended release RxNorm: 1 744913 TAKE 1 TABLET DAILY 09/30/2015 09/24/2016 Inactive azithromycin 500 mg tablet RxNorm: 832651 1 Tablet(s) PO QD 016 07/25/2015 Inactive azithromycin 500 mg tablet RxNorm: 243365 1 Tablet(s) PO QD 016 08/01/2015 Inactive loratadine 10 mg tablet RxNorm: 810327 1 Tablet(s) PO BID 04/06/2015 06/14/2016 Inactive [AttnRPh: Saving apply/adjudicate RxGRP: SG20 RxBIN:[id number] RxPCN: ID#:[id number]] Synthroid 175 mcg tablet RxNorm: 970715 1 Tablet(s) PO M, W, F 10/0 10/201411/08/2015 Inactive Synthroid 150 mcg tablet RxNorm: 002976 1 Tablet(s) PO QD Tu, T h, Sat, Sun 03/28/2015 11/08/2015 Inactive propranolol 20 mg tablet RxNorm: 292407 1 Tablet(s) PO BID 02/09/20 15 06/13/2016 Inactive fluoxetine 40 mg capsule RxNorm: 431233 1 Capsule(s) PO QD 02/09/20 15 06/14/2016 Inactive Vitamin D2 50,000 unit capsule RxNorm: 169906 TAKE 1 CA PSULE BY MOUTH TWICE WEEKLY 02/03/2015 06/14/2016 Inactive Generic For:*VERN FREEDMAN [id number] 02/03/2015 10:10:59 AM Lipitor 80 mg tablet RxNorm: 844026 1 Tablet(s) PO QD 01/24/201507/26 Inactive [AttnRPh: Saving apply/adjudicate RxGRP: SG20 RxBIN:[id number] RxPCN: ID#:[id number]] Bactrim DS 800 mg-160 mg tablet RxNorm: 699461 1 Tablet(s) PO BID 0 01/12/2015 01/11/2015 Inactive Synthroid 150 mcg tablet RxNorm: 936842 1 Tablet(s) PO QD 01/12/2015 03/27/2015 Inactive Bactrim DS 800 mg-160 mg tablet RxNorm: 280716 1 Tablet(s) PO BID 0 01/12/2015 01/18/2015 Inactive fluoxetine 40 mg capsule RxNorm: 597588 1 Capsule(s) PO QD 01/12/20 15 02/07/2015 Inactive Synthroid 137 mcg tablet RxNorm: 138381 1 Tablet(s) PO QD 12/08/2014 01/11/2015 Inactive [AttnRPh: Saving apply/adjudicate RxGRP: SG20 RxBIN:[id number] RxPCN: ID#:[id number]] Medrol (Siaiah) 4 mg tablets in a dose pack RxNorm: 481384 6 Tablet(s) PO QD --then as directed 11/24/2014 11/29/2014 Inactive albuterol sulfate HFA 90 mcg/actuation aerosol inhaler RxNor m: 980729 2 Puff(s) INH Q4H as needed 10/27/2014 07/24/2017 Inactive phenazopyridine 100 mg tablet RxNorm: 2867196 1 Tablet(s) PO TID 11/07/2015 Inactive [AttnRPh: Saving apply/adjud icate RxGRP:SG20 RxBIN:[id number] RxPCN: ID#:[id number]] Macrobid 100 mg capsule RxNorm: 857972 1 Capsule(s) PO BID 10/28/19 15 11/02/2014 Inactive [SAVINGS FOR NON-COVERED RUBIO GS -- BIN:[id number], PCN: [id number], Group: XXXXX, ID# [id number], Questions: . THIS IS NOT INSURANCE.] prednisone 20 mg tablet RxNorm: 864998 1 Tablet(s) PO BID 10/27/2014 10/31/2014 Inactive AttnRPh: Saving apply/adjudicate RxGRP:S G20 RxBIN:[id number] RxPCN: ID#:[id number]: Saving apply/adjudicate RxGRP:SG20 RxBIN:[id number] RxPCN:HT ID#:[id number] Macrobid 100 mg capsule RxNorm: 741611 1 Capsule(s) PO BID 09/24/19 15 09/29/2014 Inactive [SAVINGS FOR NON-COVERED RUBIO GS -- BIN:570402, PCN: [id number], Group: XXXXX, ID# [id number], Questions: . THIS IS NOT INSURANCE.] phenazopyridine 100 mg tablet RxNorm: 4250613 1 Tablet(s) PO TID 09/24/2014 Inactive [SAVINGS FOR NON-COVERED RUBIO GS -- BIN:367739, PCN: ASPROD1, Group: XXXXX, ID# [id number], Questions: . THIS IS NOT INSURANCE.] propranolol 60 mg tablet RxNorm: 116823 1 Tablet(s) PO QD 07/26/2014 02/07/2015 Inactive [SAVINGS FOR UNINSURED PATIENTS -- BIN:0 33056, PCN: ASPROD1, Group: [id number], ID# [id number], Process claim through [employer], for questions: . THIS IS NOT INSURANCE.] loratadine 10 mg tablet RxNorm: 227603 1 Tablet(s) PO BID 07/12/2014 07/11/2014 Inactive [AttnRPh: Saving apply/adjudicate RxGRP: SG20 RxBIN:[id number] RxPCN: ID#:[id number]] loratadine 10 mg tablet RxNorm: 272178 1 Tablet(s) PO BID 07/12/2014 10/06/2018 Inactive [SAVINGS FOR UNINSURED PATIENTS -- BIN:0 78514, PCN: ASPROD1, Group: [id number], ID# [id number], Process claim through [employer], for questions: . THIS IS NOT INSURANCE.] Vitamin D2 50,000 unit capsule RxNorm: 895025 1 Capsule (s) PO Take 1 capsule by mouth twice weekly 05/18/2014 02/02/2015 Inactive Pepcid 20 mg tablet RxNorm: 993303 TAKE 1 TABLET BY MOUTH TWICE DAILY. 05/18/2014 06/14/2016 Inactive Generic For:PEPCID 2 0MG 05/18/2014 11:28:51 AM Janumet XR 100 mg-1,000 mg tablet,extended release RxNorm: 1 481225 1 Tablet(s) PO QD 05/12/2014 08/09/2014 Inactive [SAVINGS FOR UNI NSURED PATIENTS -- BIN:[id number], PCN: ASPROD1, Group: [id number], ID# [id number], Process claim through Med[employer], for questions: . THIS IS NOT INSURANCE.] Voltaren 1 % topical gel RxNorm: 539963 TOP BID 04/21/2014 5 Inactive Apply to affected areas 2-3 times daily as needed. Trilipix 135 mg capsule,delayed release RxNorm: 620458 1 Tablet(s) PO QD 1 Capsule(s) PO QD 04/21/2014 09/17/2014 Inactive may do 90 day f ill if desired Synthroid 137 mcg tablet RxNorm: 890300 1 Tablet(s) PO QD 03/30/2014 09/25/2014 Inactive [AttnRPh: Saving apply/adjudicate RxGRP: SG20 RxBIN:[id number] RxPCN: ID#:[id number]] Cipro 250 mg tablet RxNorm: 458487 1 Tablet(s) PO BID 03/30/201403/24 Inactive [SAVINGS FOR UNINSURED PATIENTS -- BIN:0 [id number], PCN: ASPROD1, Group: [id number], ID# [id number], Process claim through [employer], for questions: . THIS IS NOT INSURANCE.] Janumet XR 100 mg-1,000 mg tablet,extended release RxNorm: 1 255691 2 Tablet(s) PO QD 01/06/2014 01/05/2014 Inactive [SAVINGS FOR UNI NSURED PATIENTS -- BIN:[id number], PCN: ASPROD1, Group: [id number], ID# [id number], Process claim through [employer], for questions: . THIS IS NOT INSURANCE.] Janumet XR 100 mg-1,000 mg tablet,extended release RxNorm: 1 394111 1 Tablet(s) PO QD 01/06/2014 04/05/2014 Inactive [SAVINGS FOR UNI NSURED PATIENTS -- BIN:358130, PCN: ASPROD1, Group: [id number], ID# [id number], Process claim through [employer], for questions: . THIS IS NOT INSURANCE.] propranolol 60 mg tablet RxNorm: 511997 1 Tablet(s) PO QD 12/28/2013 07/26/2014 Inactive [AttnRPh: Saving apply/adjudicate RxGRP: SG20 RxBIN:[id number] RxPCN: ID#:[id number]] Synthroid 150 mcg tablet RxNorm: 991366 1 Tablet(s) PO QD brand onl y 12/28/2013 04/20/2014 Inactive [AttnRPh: Saving apply/adjud icate RxGRP:SG20 RxBIN:[id number] RxPCN:HT ID#:[id number]] Vitamin D2 50,000 unit capsule RxNorm: 124775 1 Capsule (s) PO Take 1 capsule by mouth twice weekly 12/02/2013 05/17/2014 Inactive Lipitor 80 mg tablet RxNorm: 839957 1 Tablet(s) PO QD 11/24/201305/25 Inactive [AttnRPh: Saving apply/adjudicate RxGRP: SG20 RxBIN:[id number] RxPCN:HT ID#:[id number]] loratadine 10 mg tablet RxNorm: 085525 1 Tablet(s) PO BID 11/17/2013 07/12/2014 Inactive fluoxetine 20 mg capsule RxNorm: 499464 1 Capsule(s) PO QAM TAKE ONE CAPSULE BY MOUTH ONCE DAILY IN THE MORNING. 11/04/2013 01/10/2015 Inactive Generic For:PROZAC 20MG Generic For:PROZAC 20MG 06/23/2013 11:55:55 AM [AttnRPh: Saving apply/adjudicate RxGRP:SG20 RxBIN:[id number] RxPCN:HT ID#:[id number]] Vytorin 10 mg-80 mg tablet RxNorm: 2537730 Tablet(s) PO TAKE ONE TABLET BY MOUTH ONCE DAILY IN THE EVENING. 09/30/2013 11/23/2013 Inactive Trilipix 135 mg capsule,delayed release RxNorm: 149701 1 Capsul e(s) PO QD 07/15/2013 04/21/2014 Inactive may do 90 day fill i f desired Voltaren 1 % topical gel RxNorm: 776437 TOP BID 07/15/2013 4 Inactive Apply to affected areas 2-3 times daily as needed. Wellbutrin XL 300 mg 24 hr tablet, extended release RxNorm: 612908 1 Tablet(s) PO QAM 06/29/2013 04/03/2017 Inactive fluoxetine 20 mg capsule RxNorm: 237633 1 Capsule(s) PO QAM TAKE ONE CAPSULE BY MOUTH ONCE DAILY IN THE MORNING. 06/29/2013 11/04/2013 Inactive Generic For:PROZAC 20MG Generic For:PROZAC 20MG 06/23/2013 11:55:55 AM fluoxetine 20 mg capsule RxNorm: 353810 Capsule(s) PO T BRIA ONE CAPSULE BY MOUTH ONCE DAILY IN THE MORNING. 06/23/2013 06/28/2013 Inactive Gener ic For:PROZAC 20MG Generic For:PROZAC 20MG 06/23/2013 11:55:55 AM Synthroid 150 mcg tablet RxNorm: 412619 1 Tablet(s) PO QD brand onl y 06/08/2013 12/04/2013 Inactive Vytorin 10 mg-80 mg tablet RxNorm: 4564458 1 Tablet(s) PO QD 201209/05/2013 Inactive TAKE 1 TABLET BY MOUTH DAILY propranolol 60 mg tablet RxNorm: 173543 1 Tablet(s) PO QD 06/08/2013 12/04/2013 Inactive Pepcid 20 mg tablet RxNorm: 841241 Tablet(s) PO TAKE 1 TABLET BY MOUTH TWICE DAILY. 06/04/2013 11/23/2013 Inactive fluoxetine 20 mg capsule RxNorm: 986867 1 Capsule(s) PO QAM 013 06/22/2013 Inactive Wellbutrin XL 300 mg 24 hr tablet, extended release RxNorm: 426394 1 Tablet(s) PO QAM 05/26/2013 06/28/2013 Inactive Wellbutrin XL 150 mg 24 hr tablet, extended release RxNorm: 601033 1 Tablet(s) PO QD 05/15/2013 05/25/2013 Inactive Wellbutrin XL 150 mg 24 hr tablet, extended release RxNorm: 014995 1 Tablet(s) PO QD 05/15/2013 05/14/2013 Inactive Kombiglyze XR 5 mg-500 mg tablet,extended release RxNorm: 10 70939 1 Tablet(s) PO QD 05/07/2013 05/15/2013 Inactive cefdinir 300 mg capsule RxNorm: 601163 2 Capsule(s) PO QD 04/23/2013 05/02/2013 Inactive AttnRPh: Saving apply/adjudicate RxGRP:S G20 RxBIN:[id number] RxPCN: ID#:[id number] Pepcid 20 mg tablet RxNorm: 247471 Tablet(s) PO TAKE 1 TABLET BY MOUTH TWICE DAILY. 04/17/2013 06/13/2016 Inactive Pepcid 20 mg tablet RxNorm: 733839 1 Tablet(s) PO BID 04/06/201305/24 Inactive Vytorin 10-80 10 mg-80 mg tablet RxNorm: 709954 1 Tablet(s) PO QD 0 02/19/2013 06/08/2013 Inactive TAKE 1 TABLET BY MOUTH DAILY loratadine 10 mg tablet RxNorm: 092208 1 Tablet(s) PO BID 01/23/2013 07/21/2013 Inactive Synthroid 150 mcg tablet RxNorm: 873249 1 Tablet(s) PO QD brand onl y 12/02/2012 06/08/2013 Inactive propranolol 60 mg tablet RxNorm: 757700 1 Tablet(s) PO QD 12/02/2012 06/08/2013 Inactive Trilipix 135 mg capsule,delayed release RxNorm: 358024 1 Capsul e(s) PO QD 12/02/2012 05/30/2013 Inactive may do 90 day fill i f desired Pepcid 20 mg tablet RxNorm: 647762 1 Tablet(s) PO BID 11/27/201203/24 Inactive Effexor XR 150 mg capsule,extended release RxNorm: 470118 1 Cap kimi(s) PO QD 11/24/2012 05/14/2013 Inactive Vytorin 10-80 10 mg-80 mg tablet RxNorm: 741717 1 Tablet(s) PO QD 0 11/24/2012 2013 Inactive TAKE 1 TABLET BY MOUTH DAILY Vytorin 10-80 10 mg-80 mg tablet RxNorm: 940387 1 Tablet(s) PO QD 0 11/21/2012 11/24/2012 Inactive TAKE 1 TABLET BY MOUTH DAILY Effexor XR 150 mg capsule,extended release RxNorm: 621110 1 Cap kimi(s) PO QD 11/21/2012 11/24/2012 Inactive loratadine 10 mg tablet RxNorm: 3308111 1 Tablet(s) PO BID 11/12/19 13 01/23/2013 Inactive Vytorin 10-80 10 mg-80 mg tablet RxNorm: 565003 Tablet( s) PO TAKE 1 TABLET BY MOUTH ONCE DAILY. 10/15/2012 11/21/2012 Inactive Vytorin 10-80 10 mg-80 mg tablet RxNorm: 748033 1 Tablet(s) PO QD 0 10/15/2012 11/20/2012 Inactive TAKE 1 TABLET BY MOUTH DAILY Effexor XR 150 mg capsule,extended release RxNorm: 790865 1 Cap kimi(s) PO QD 10/15/2012 11/20/2012 Inactive Effexor XR 150 mg capsule,extended release RxNorm: 442333 Capsule(s) PO TAKE 1 CAPSULE BY MOUTH ONCE DAILY 10/15/2012 11/21/2012 Inactive azithromycin 250 mg tablet RxNorm: 472455 2 Tablet(s) PO QD 013 09/10/2012 Inactive Culturelle 10 billion cell capsule RxNorm: 120831 1 Cap kimi(s) PO BID for diarrhea maintenance 09/03/2012 10/02/2012 Inactive Medrol (Isaiah) 4 mg tablets in a dose pack RxNorm: 850991 Tablet(s) PO as directed 09/03/2012 07/11/2011 Active as directed Culturelle 10 billion cell capsule RxNorm: 708156 1 Capsule(s) PO BID 07/23/2012 08/21/2012 Inactive Vitamin D2 50,000 unit capsule RxNorm: 171456 Capsule(s ) PO TAKE 1 CAPSULE EVERY DAY SATURDAY THRU Saturday07/09/2012 08/20/2013 Inactive Vitamin D2 50,000 unit capsule RxNorm: 1349264 Capsule(s ) PO TAKE 1 CAPSULE EVERY DAY SATURDAY THRU Saturday07/07/2012 07/08/2012 Inactive Vitamin D2 50,000 unit capsule RxNorm: 6291090 Capsule(s ) PO TAKE 1 CAPSULE EVERY DAY SATURDAY THRU Saturday07/07/2012 07/06/2012 Inactive Vitamin D2 50,000 unit capsule RxNorm: 1136847 Capsule(s ) PO TAKE 1 CAPSULE EVERY DAY SATURDAY THRU Saturday06/27/2012 07/06/2012 Inactive Synthroid 150 mcg tablet RxNorm: 514796 1 Tablet(s) PO QD brand onl y 06/09/2012 12/02/2012 Inactive metformin 1,000 mg tablet RxNorm: 314614 1 Tablet(s) PO BID rep laces 500mg dose 05/20/2012 11/10/2012 Inactive propranolol 60 mg tablet RxNorm: 223737 1 Tablet(s) PO QD 04/23/2012 12/02/2012 Inactive Effexor XR 150 mg capsule,extended release RxNorm: 545538 1 Cap kimi(s) PO QD 04/04/2012 09/30/2012 Inactive Zyrtec 10 mg tablet RxNorm: 9204973 1 Tablet(s) PO QD 04/04/201203/24 Inactive Trilipix 135 mg capsule,delayed release RxNorm: 204370 1 Capsul e(s) PO QD 03/19/2012 12/02/2012 Inactive may do 90 day fill i f desired Vytorin 10-80 10 mg-80 mg tablet RxNorm: 450386 1 Tablet(s) PO QD 0 01/31/2012 07/28/2012 Inactive TAKE 1 TABLET BY MOUTH DAILY Voltaren 1 % topical gel RxNorm: 777742 TOP BID 01/25/2012 4 Inactive Apply to affected areas 2-3 times daily as needed. Synthroid 150 mcg tablet RxNorm: 078582 1 Tablet(s) PO QD brand onl y 01/02/2012 06/09/2012 Inactive metformin ER 1,000 mg 24 hr Tab Ctrl Rel RxNorm: 893135 1 Table t(s) PO QD 01/02/2012 05/19/2012 Inactive metformin ER 500 mg 24 hr Tab RxNorm: 288511 Tablet(s) PO 12/21/2011 01/01/2012 Inactive TAKE 1 TABLET BY MOUTH ONCE DAILY. Voltaren 1 % Topical Gel RxNorm: 425915 TOP BID 11/28/2011 2 Inactive Apply to affected areas 2-3 times daily as needed. propranolol 60 mg tablet RxNorm: 986581 1 Tablet(s) PO QD 10/17/2011 04/23/2012 Inactive Effexor XR 150 mg capsule,extended release RxNorm: 207077 1 Cap kimi(s) PO QD 09/13/2011 04/04/2012 Inactive Medrol (Isaiah) 4 mg tablets in a dose pack RxNorm: 875984 Tablet(s) PO as directed 09/04/2011 07/11/2011 Active as directed doxycycline hyclate 100 mg Tab RxNorm: 3787416 1 Tablet(s) PO BID 0 09/04/2011 09/13/2011 Inactive doxycycline monohydrate 100 mg Tab RxNorm: 1849041 1 Tablet(s) P O BID 07/25/2011 08/03/2011 Inactive prednisone 10 mg Tab RxNorm: 815735 1 Tablet(s) PO TID 07/25/201112/2011 Inactive Synthroid 150 mcg Tab RxNorm: 661652 1 Tablet(s) PO QD brand only 0 07/12/2011 01/02/2012 Inactive Vytorin 10-80 10 mg-80 mg Tab RxNorm: 758036 1 Tablet(s) PO QD 05/2601/31/2012 Inactive TAKE 1 TABLET BY MOUTH DAILY Vitamin D2 50,000 unit capsule RxNorm: 2189109 1 Capsule(s) PO Q D M-F 05/15/2011 06/26/2012 Inactive TAKE 1 CAPSULE BY [facility] DAILY SATURDAY THROUGH FRIDAYS Synthroid 150 mcg Tab RxNorm: 164792 1 Tablet(s) PO QD brand only 1 07/09/2010 07/11/2011 Inactive doxycycline monohydrate 100 mg Tab RxNorm: 9241065 1 Tablet(s) P O BID 04/25/2011 05/04/2011 Inactive Trilipix 135 mg capsule,delayed release RxNorm: 139625 1 Capsul e(s) PO QD 04/23/2011 03/19/2012 Inactive cefdinir 300 mg Cap RxNorm: 971619 1 Capsule(s) PO BID 04/04/2011 Inactive propranolol 60 mg Tab RxNorm: 596125 1 Tablet(s) PO QD 03/26/2011 Inactive Ultram 50 mg Tab RxNorm: 950235 1-2 Tablet(s) PO QID 03/22/201103/21 Active prn pain metformin ER 500 mg 24 hr Tab RxNorm: 977921 1 Tablet(s) PO QD 06/201006/21/2011 Inactive Synthroid 150 mcg Tab RxNorm: 711098 1 Tablet(s) PO QD 02/22/201112/2010 Inactive Vytorin 10-80 10 mg-80 mg Tab RxNorm: 049220 1 Tablet(s) PO QD 01/2303/13/2011 Inactive TAKE 1 TABLET BY MOUTH DAILY Trilipix 135 mg Cap RxNorm: 819149 1 Capsule(s) PO QD 01/10/201103/26 Inactive Effexor XR 150 mg 24 hr Cap RxNorm: 414487 1 Capsule(s) PO QD 01/0908/06/2011 Inactive Vitamin D 50,000 unit Cap RxNorm: 6896060 Capsule(s) PO 12/20/2010 Inactive TAKE 1 CAPSULE BY MOUTH DAILY Fridays Septra DS 800 mg-160 mg Tab RxNorm: 518727 1 Tablet(s) PO BID 12/0712/16/2010 Inactive mupirocin 2 % Ointment RxNorm: 655751 1 Application TOP BID Apply to affected area twice daily 12/07/2010 12/13/2010 Inactive Trilipix 135 mg Cap RxNorm: 783658 1 Capsule(s) PO QD 10/16/201003/26 Inactive Synthroid 150 mcg Tab RxNorm: 511806 1 Tablet(s) PO QD 10/09/201006/2010 Inactive metformin ER 500 mg 24 hr Tab RxNorm: 325620 1 Tablet(s) PO QD 09/2202/22/2011 Inactive Nexium 40 mg Cap RxNorm: 098427 1 Capsule(s) PO QD 10/05/2010 019 Inactive Vytorin 10-80 10 mg-80 mg Tab RxNorm: 779741 1 Tablet(s) PO QD 09/201002/12/2011 Inactive propranolol 60 mg Tab RxNorm: 676521 1 Tablet(s) PO QD 09/18/201008/2010 Inactive Synthroid 125 mcg Tab RxNorm: 593966 1 Tablet(s) PO QD 08/07/2010 Inactive Synthroid 125 mcg Tab RxNorm: 741222 1 Tablet(s) PO QD 08/07/2010 Inactive Voltaren 1 % Topical Gel RxNorm: 988734 TOP BID Apply t o affected areas 2-3 times daily as needed. 08/01/2010 11/28/2011 Inactive Voltaren 1 % Topical Gel RxNorm: 544350 TOP BID Apply t o affected areas 2-3 times daily as needed. 07/04/2010 07/31/2010 Inactive Advair Diskus 250 mcg-50 mcg/dose for Inhalation RxNorm: 135 9859 1 Puff(s) INH Q12H 07/04/2010 07/11/2011 Inactive Effexor XR 150 mg 24 hr Cap RxNorm: 205461 1 Capsule(s) PO QD 06/0801/03/2011 Inactive Synthroid 100 mcg Tab RxNorm: 865011 1 Tablet(s) PO QD 06/06/2010 Inactive Vitamin D 50,000 unit Cap RxNorm: 2670337 1 Capsule(s) PO QD M-F 05/15/2011 Inactive Synthroid 150 mcg Tab RxNorm: 503336 1 Tablet(s) PO 05/25/20102010 Inactive Vytorin 10-80 10 mg-80 mg Tab RxNorm: 892970 1 Tablet(s) PO QD 04/2509/25/2010 Inactive Trilipix 135 mg Cap RxNorm: 657793 1 Capsule(s) PO QD 04/17/201009/23 Inactive propranolol 60 mg Tab RxNorm: 031545 1 Tablet(s) PO QD 01/09/2010 Inactive Advair Diskus 250 mcg-50 mcg/dose for Inhalation RxNorm: 135 9859 1 Puff(s) INH Q12H 12/26/2009 07/04/2010 Inactive Advair Diskus 250 mcg-50 mcg/Dose for Inhalation RxNorm: 135 9859 1 Puff(s) INH Q12H 11/26/2009 12/25/2009 Inactive Synthroid 200 mcg Tab RxNorm: 292474 1 Tablet(s) PO QD 11/24/2009 Inactive Effexor XR 150 mg 24 hr Cap RxNorm: 215637 1 Capsule(s) PO QD 10/2705/24/2010 Inactive Lisinopril 10 mg Tab RxNorm: 084465 1 Tablet(s) PO QD 10/17/200909/23 Inactive Propranolol 60 mg Tab RxNorm: 163154 1 Tablet(s) PO QD 10/17/2009 Inactive Septra DS 160 mg-800 mg Tab RxNorm: 368452 1 Tablet(s) PO BID 10/0410/08/2009 Inactive Mupirocin 2 % Ointment RxNorm: 611531 TOP Q6-8H 10/04/2009 10/10/2009 Inactive Voltaren 1 % Topical Gel RxNorm: 447993 TOP BID Apply t o affected areas 2-3 times daily as needed. 09/21/2009 03/19/2010 Inactive Trilipix 135 mg Cap RxNorm: 525698 1 Capsule(s) PO QD 09/20/200902/23 Inactive Nexium 40 mg Cap RxNorm: 842010 1 Capsule(s) PO QD 09/19/2009 010 Inactive Tylenol Arthritis 650 mg Tab RxNorm: 3281748 2 Tablet(s) PO BID 09/21 Active Vitamin D3 5,000 unit tablet RxNorm: 698819 1 Tablet(s) PO QD 019 Active Synthroid 150 mcg tablet RxNorm: 246768 1 Tablet(s) PO QD 01/12/2015 01/11/2015 Inactive Synthroid 150 mcg tablet RxNorm: 281893 1 Tablet(s) PO Saturday and Saturday01/16/2018 01/15/2018 Inactive Vitamin D 2,000 unit Cap RxNorm: 1 Capsule(s) PO QD 01/30/201002/2010 Inactive Flexeril 5 mg tablet RxNorm: 089446 /2 to 1 Tablet(s) PO TID as needed for muscle spasm 06/10/2017 06/09/2017 Inactive Medrol (Isaiah) 4 mg Tabs in a Dose Pack RxNorm: 753705 Tablet(s) PO 0 09/04/2011 07/11/2011 Inactive as directed fenofibrate micronized 134 mg capsule RxNorm: 831610 1 Capsule( s) PO QD 06/03/2017 06/02/2017 Inactive Vitamin D2 50,000 unit capsule RxNorm: 022584 Capsule(s ) PO Take 1 capsule by mouth twice weekly 12/02/2013 12/01/2013 Inactive prednisone 20 mg tablet RxNorm: 115376 1 Tablet(s) PO BID 03/30/2014 03/29/2014 Inactive AttnRPh: Saving apply/adjudicate RxGRP:S G20 RxBIN:[id number] RxPCN: ID#:[id number]: Saving apply/adjudicate RxGRP:SG20 RxBIN:[id number] RxPCN: ID#:[id number] Soma 350 mg tablet RxNorm: 039580 1 Tablet(s) PO TID prn spasm 01/2310/08/2010 Inactive Lancets,Ultra Thin RxNorm: Miscellaneous Use to test blood sugar daily and as needed (Dx: E11.65) 02/28/2018 02/27/2018 Inactive pantoprazole 40 mg tablet,delayed release RxNorm: 952587 1 Tabl et(s) PO QD 08/21/2017 08/20/2017 Inactive Janumet XR 100 mg-1,000 mg tablet,extended release RxNorm: 1 779010 2 Tablet(s) PO QD 01/06/2014 01/05/2014 Inactive Contour Meter RxNorm: miscellaneous 02/27/2018 02/26/2018 Inactive Synthroid 200 mcg Tab RxNorm: 637263 1 Tablet(s) PO QD 11/24/200907/2009 Inactive Kombiglyze XR 5 mg-500 mg tablet,extended release RxNorm: 10 09386 1 Tablet(s) PO QD 05/07/2013 05/06/2013 Inactive Zithromax Z-Isaiah 250 mg tablet RxNorm: 774564 Tablet(s) PO as di rected 05/14/2013 05/13/2013 Inactive AttnRPh: Saving appl y/adjudicate RxGRP:SG20 RxBIN:[id number] RxPCN: ID#:[id number] Fish Oil 1,000 mg capsule RxNorm: 3 Capsule(s) PO QD 04/04/2017 Inactive Lasix Oral RxNorm: Oral 03/30/2014 03/29/2014 Inactive loratadine 10 mg tablet RxNorm: 102222 1 Tablet(s) PO QD 08/20/2017 0 08/19/2017 Inactive Vitamin D 5,000 unit Tab RxNorm: 1 Tablet(s) PO twice a week 1 08/07/2009 06/05/2010 Inactive permethrin 5 % Topical Cream RxNorm: 290318 TOP Use as directed 02/03/2013 Inactive Gabapentin 100 mg Tab RxNorm: 881927 1 Tablet(s) PO BID 04/12/2010 Inactive Voltaren 1 % topical gel RxNorm: 409514 TOP as needed 06/23/201805/26 Inactive Gabapentin 300 mg Cap RxNorm: 775091 1 Capsule(s) PO BID 07/12/2011 0 07/11/2011 Inactive Contour Test Strips RxNorm: Miscellaneous Test blood sug ar daily (Dx: E11.65) 02/28/2018 02/27/2018 Inactive Promethazine 25 mg Tab RxNorm: 895224 1 Tablet(s) PO Q6 -8H As needed for nausea and vomiting. 10/09/2010 10/08/2010 Inactive propranolol 20 mg tablet RxNorm: 234571 1 Tablet(s) PO BID 03/17/20 18 03/16/2018 Inactive Vitamin D 50,000 unit Cap RxNorm: 0436919 Capsule(s) PO 2 weekly 06/05/2010 Inactive Synthroid 175 mcg Tab RxNorm: 587420 1 Tablet(s) PO QD 07/12/2011 Inactive triamcinolone acetonide 0.1 % Ointment RxNorm: 4115124 T OP TID apply three times a day (sparingly) as needed for itching 04/04/2017 04/03/2017 Inactive Ultram 50 mg Tab RxNorm: 005869 1-2 Tablet(s) PO QID prn pain 03/2203/22/2011 Inactive Topamax 100 mg Tab RxNorm: 270748 1 Tablet(s) PO BID 10/04/200910/03 Inactive Vitamin D3 1000 units Capsule RxNorm: 3 Capsule(s) PO QD 0 06/05/2010 Inactive Singulair 10 mg tablet RxNorm: 268543 1 Tablet(s) PO QD 06/23/2018 Inactive Medication [...] Code Item Item Code Result Date S [facility] Location SARS-CoV2 1809464 SARS-CoV2 PCR Detected 07/08/2021 Unkno wn GFR CALC 7743571 GFR Non Afr Amr >60 mL/min 01/26/2019 Un known GFR CALC 4954025 GFR Afr Amr >60 mL/min 01/26/2019 Unknow n COMPLETE BLOOD COUNT 7135333 WBC 7.0 10e9/L 01/27/20 19 Unknown COMPLETE BLOOD COUNT [id number] RBC 4.52 10e12/L 2018 Unknown COMPLETE BLOOD COUNT [id number] HEMOGLOBIN 14.0 g/dL 01/27/20 19 Unknown COMPLETE BLOOD COUNT 6895101 HEMATOCRIT 42.6 % 01/27/20 19 Unknown COMPLETE BLOOD COUNT [id number] MCV 94.2 fL 9 Unknown COMPLETE BLOOD COUNT 4760867 MCH 31.0 pg 9 Unknown COMPLETE BLOOD COUNT 5431508 MCHC 32.9 g/dL 9 Unknown COMPLETE BLOOD COUNT [id number] PLATELET COUNT 272 10e9/L 10/2018 Unknown COMPLETE BLOOD COUNT 3909518 Mean Plt Volume 10.4 fL 10/2018 Unknown COMPLETE BLOOD COUNT 2086819 Neut Auto 53.9 % 9 Unknown COMPLETE BLOOD COUNT 4055519 Lymph Auto 33.8 % 01/27/20 19 Unknown COMPLETE BLOOD COUNT 7202566 [place]ton Auto 9.1 % 9 Unknown COMPLETE BLOOD COUNT 6451461 RDW 13.2 % 9 Unknown COMPLETE BLOOD COUNT 7896337 Eos Auto 2.3 % 9 Unknown COMPLETE BLOOD COUNT 2806763 Baso Auto 0.9 % 9 Unknown COMPLETE BLOOD COUNT 0621783 Neutrophil Abs 3.77 10e9/L Unknown COMPLETE BLOOD COUNT 4181834 Lymphocyte Abs 2.37 10e9/L Unknown COMPLETE BLOOD COUNT 2524943 Monocyte Abs 0.64 10e9/L 10/2018 Unknown COMPLETE BLOOD COUNT 4035244 Eosinophil Abs 0.16 10e9/L Unknown COMPLETE BLOOD COUNT 2287698 RDW-SD 44.2 fL 9 Unknown COMPLETE BLOOD COUNT [id number] Basophil Abs 0.06 10e9/L 10/2018 Unknown COMPREHENSIVE METABOLIC 57631 AST 15 U/L 2018 Unknown COMPREHENSIVE METABOLIC 05346 ALT 18 U/L 2018 Unknown COMPREHENSIVE METABOLIC 22792 BUN 10 mg/dL 2018 Unknown COMPREHENSIVE METABOLIC 67558 ALBUMIN 4.1 g/dL 2018 Unknown COMPREHENSIVE METABOLIC 15675 CHLORIDE 100 mmol/L 01/26 Unknown COMPREHENSIVE METABOLIC 14990 Bili Total 0.4 mg/dL 01/26 Unknown COMPREHENSIVE METABOLIC 02780 ALK PHOS 57 U/L 2018 Unknown COMPREHENSIVE METABOLIC 85268 SODIUM 136 mmol/L 01/26 Unknown COMPREHENSIVE METABOLIC 28063 CREATININE 0.71 mg/dL 10/2018 Unknown COMPREHENSIVE METABOLIC 21258 CALCIUM 9.3 mg/dL 2018 Unknown COMPREHENSIVE METABOLIC 09026 POTASSIUM 4.4 mmol/L 01/26 Unknown COMPREHENSIVE METABOLIC 24403 Total Protein 6.7 g/dL Unknown COMPREHENSIVE METABOLIC 11707 Glucose 88 mg/dL 2018 Unknown COMPREHENSIVE METABOLIC 79881 Bicarbonate 27 mmol/L 10/2018 Unknown COMPREHENSIVE METABOLIC 89916 AGAP 9 mmol/L 2018 Unknown Procedures Procedure Codes Date RML URINE CULTURE/ COLONY COUNT CPT-4: 59449 06/29/19 23 THER/PROPH/DIAG INJ SC/IM CPT-4: 54283 04/18/2022 KETOROLAC TROMETHAMINE INJ CPT-4: J1885 04/18/2022 FLU 64 + VACC AIIV4 NO PRSRV 0.5ML IM CPT-4: 98967 ADMIN INFLUENZA VIRUS VAC CPT-4: G0008 04/05/2022 PPPS, subseq visit CPT-4: G0439 02/06/2022 DEXAMETHASONE SODIUM PHOS CPT-4: J1100 11/09/2021 THER/PROPH/DIAG INJ SC/IM CPT-4: 43943 11/09/2021 TRIAMCINOLONE ACET INJ NOS CPT-4: J3301 11/09/2021 CEFTRIAXONE SODIUM INJECTION CPT-4: J0696 10/30/2021 THER/PROPH/DIAG INJ SC/IM CPT-4: 30288 10/30/2021 INFLUENZA ASSAY W/OPTIC CPT-4: 64332 10/30/2021 THER/PROPH/DIAG INJ SC/IM CPT-4: 92672 09/05/2021 TRIAMCINOLONE ACET INJ NOS CPT-4: J3301 09/05/2021 INFLUENZA ASSAY W/OPTIC CPT-4: 47023 07/04/2021 SARS-CoV2 CPT-4: 9580433 07/04/2021 FLU VACC PRSV FREE INC ANTIG 65 AND OLDER CPT-4: 77978 03/29/2021 FLU VACC PRSV FREE INC ANTIG 65 AND OLDER CPT-4: 83091 03/29/2021 ADMIN INFLUENZA VIRUS VAC CPT-4: G0008 03/29/2021 DRAINAGE OF SKIN ABSCESS CPT-4: 28050 02/08/2021 PPPS, subseq visit CPT-4: G0439 01/03/2021 OCCULT BLOOD FECES CPT-4: 73477 07/13/2020 RML URINE CULTURE/ COLONY COUNT CPT-4: 35747 05/17/20 URINALYSIS NONAUTO W/O SCOPE CPT-4: 95477 05/17/2020 CEFTRIAXONE SODIUM INJECTION CPT-4: J0696 03/07/2020 THER/PROPH/DIAG INJ SC/IM CPT-4: 31553 03/07/2020 THER/PROPH/DIAG INJ SC/IM CPT-4: 58449 03/07/2020 METHYLPREDNISOLONE INJECTION CPT-4: J2930 03/07/2020 PPPS, subseq visit CPT-4: G0439 12/21/2019 RML URINE CULTURE/ COLONY COUNT CPT-4: 07913 09/11/19 20 CEFTRIAXONE SODIUM INJECTION CPT-4: J0696 09/08/2019 THER/PROPH/DIAG INJ SC/IM CPT-4: 86796 09/08/2019 THER/PROPH/DIAG INJ SC/IM CPT-4: 89183 09/07/2019 CEFTRIAXONE SODIUM INJECTION CPT-4: J0696 09/07/2019 THER/PROPH/DIAG INJ SC/IM CPT-4: 57687 09/07/2019 URINALYSIS NONAUTO W/O SCOPE CPT-4: 38394 09/02/2019 RML URINE CULTURE/ COLONY COUNT CPT-4: 95741 09/02/19 20 FLU VACC PRSV FREE INC ANTIG 65 AND OLDER CPT-4: 05424 04/15/2019 URINALYSIS NONAUTO W/O SCOPE CPT-4: 69542 04/15/2019 RML URINE CULTURE/ COLONY COUNT CPT-4: 94931 04/15/20 19 ADMIN INFLUENZA VIRUS VAC CPT-4: G0008 04/15/2019 FLU VACC PRSV FREE INC ANTIG 65 AND OLDER CPT-4: 63900 04/15/2019 THER/PROPH/DIAG INJ SC/IM CPT-4: 73473 04/07/2019 TRIAMCINOLONE ACET INJ NOS CPT-4: J3301 04/07/2019 DEXAMETHASONE SODIUM PHOS CPT-4: J1100 04/07/2019 URINALYSIS NONAUTO W/O SCOPE CPT-4: 54278 03/18/2019 RML URINE CULTURE/ COLONY COUNT CPT-4: 50889 03/18/20 19 ROUTINE VENIPUNCTURE CPT-4: 56007 01/26/2019 RML COMPREHEN METABOLIC PANEL CPT-4: 61179 01/26/2019 RML COMPLETE CBC W/AUTO DIFF WBC CPT-4: 10400 019 RML URINE CULTURE/ COLONY COUNT CPT-4: 69274 01/27/20 19 URINALYSIS NONAUTO W/O SCOPE CPT-4: 31709 01/26/2019 THER/PROPH/DIAG INJ SC/IM CPT-4: 30473 01/08/2019 TRIAMCINOLONE ACET INJ NOS CPT-4: J3301 01/08/2019 THER/PROPH/DIAG INJ SC/IM CPT-4: 37636 01/06/2019 METHYLPREDNISOLONE INJECTION CPT-4: J2930 01/06/2019 AIRWAY INHALATION TREATMENT CPT-4: 28495 01/06/2019 RML URINE CULTURE/ COLONY COUNT CPT-4: 19614 01/07/20 19 PPPS, subseq visit CPT-4: G0439 12/11/2018 URINALYSIS NONAUTO W/O SCOPE CPT-4: 19180 12/11/2018 RML URINE CULTURE/ COLONY COUNT CPT-4: 01512 12/12/19 19 CULTURE OTHR SPECIMN AEROBIC CPT-4: 05412 12/11/2018 OCCULT BLOOD FECES CPT-4: 59266 12/11/2018 THER/PROPH/DIAG INJ SC/IM CPT-4: 83317 10/07/2018 TRIAMCINOLONE ACET INJ NOS CPT-4: J3301 10/07/2018 DEXAMETHASONE SODIUM PHOS CPT-4: J1100 10/07/2018 THER/PROPH/DIAG INJ SC/IM CPT-4: 31847 10/16/2017 TRIAMCINOLONE ACET INJ NOS CPT-4: J3301 10/16/2017 THER/PROPH/DIAG INJ SC/IM CPT-4: 13337 10/16/2017 KETOROLAC TROMETHAMINE INJ CPT-4: J1885 10/16/2017 INFLUENZA ASSAY W/OPTIC CPT-4: 86010 07/25/2017 FLU VACC PRSV FREE INC ANTIG 65 AND OLDER CPT-4: 25777 04/04/2017 PNEUMOCOCCAL VACC 22 DANAY IM CPT-4: 06081 04/04/2017 PPPS, subseq visit CPT-4: G0439 04/04/2017 ADMIN INFLUENZA VIRUS VAC CPT-4: G0008 04/04/2017 ADMIN PNEUMOCOCCAL VACCINE CPT-4: G0009 04/04/2017 URINALYSIS NONAUTO W/O SCOPE CPT-4: 66939 06/05/2016 FLU VACC PRSV FREE INC ANTIG 65 AND OLDER CPT-4: 89099 05/01/2016 ADMIN INFLUENZA VIRUS VAC CPT-4: G0008 05/01/2016 URINALYSIS NONAUTO W/O SCOPE CPT-4: 37152 11/08/2015 URINALYSIS NONAUTO W/O SCOPE CPT-4: 44879 03/28/2015 ADMIN INFLUENZA VIRUS VAC CPT-4: G0008 03/28/2015 FLU VACC PRSV FREE INC ANTIG 65 AND OLDER CPT-4: 45449 03/28/2015 PRESCRIP TRANSMIT VIA ERX SY CPT-4: G8553 03/28/2015 PNEUMOCOCCAL VACC 13 DANAY IM CPT-4: 65814 02/08/2015 ADMIN PNEUMOCOCCAL VACCINE CPT-4: G0009 02/08/2015 PRESCRIP TRANSMIT VIA ERX SY CPT-4: G8553 02/08/2015 RML URINE CULTURE/ COLONY COUNT CPT-4: 26567 01/12/20 15 URINALYSIS NONAUTO W/O SCOPE CPT-4: 54980 01/11/2015 PRESCRIP TRANSMIT VIA ERX SY CPT-4: G8553 01/11/2015 PRESCRIP TRANSMIT VIA ERX SY CPT-4: G8553 11/24/2014 URINALYSIS NONAUTO W/O SCOPE CPT-4: 30557 10/27/2014 RML URINE CULTURE/ COLONY COUNT CPT-4: 11255 10/28/19 15 PRESCRIP TRANSMIT VIA ERX SY CPT-4: G8553 10/27/2014 CEFTRIAXONE SODIUM INJECTION CPT-4: J0696 09/23/2014 THER/PROPH/DIAG INJ SC/IM CPT-4: 50190 09/23/2014 URINALYSIS NONAUTO W/O SCOPE CPT-4: 78904 09/23/2014 RML URINE CULTURE/ COLONY COUNT CPT-4: 83508 09/24/19 15 PRESCRIP TRANSMIT VIA ERX SY CPT-4: G8553 09/23/2014 URINALYSIS NONAUTO W/O SCOPE CPT-4: 44915 03/30/2014 RML URINE CULTURE/ COLONY COUNT CPT-4: 01786 03/30/20 14 PRESCRIP TRANSMIT VIA ERX SY CPT-4: G8553 03/30/2014 PRESCRIP TRANSMIT VIA ERX SY CPT-4: G8553 11/24/2013 PRESCRIP TRANSMIT VIA ERX SY CPT-4: G8553 06/29/2013 PRESCRIP TRANSMIT VIA ERX SY CPT-4: G8553 05/26/2013 PRESCRIP TRANSMIT VIA ERX SY CPT-4: G8553 04/23/2013 THER/PROPH/DIAG INJ SC/IM CPT-4: 27196 03/05/2013 KETOROLAC TROMETHAMINE INJ CPT-4: J1885 03/05/2013 PRESCRIP TRANSMIT VIA ERX SY CPT-4: G8553 11/27/2012 PRESCRIP TRANSMIT VIA ERX SY CPT-4: G8553 11/11/2012 PRESCRIP TRANSMIT VIA ERX SY CPT-4: G8553 09/03/2012 PRESCRIP TRANSMIT VIA ERX SY CPT-4: G8553 07/23/2012 PRESCRIP TRANSMIT VIA ERX SY CPT-4: G8553 05/20/2012 PRESCRIP TRANSMIT VIA ERX SY CPT-4: G8553 04/04/2012 DESTRUCT PREMALG LESION (Cryosurgery) CPT-4: 91631 PRESCRIP TRANSMIT VIA ERX SY CPT-4: G8553 01/02/2012 PRESCRIP TRANSMIT VIA ERX SY CPT-4: G8553 09/04/2011 URINALYSIS NONAUTO W/O SCOPE CPT-4: 06870 07/31/2011 PRESCRIP TRANSMIT VIA ERX SY CPT-4: G8553 07/12/2011 PRESCRIP TRANSMIT VIA ERX SY CPT-4: G8553 05/09/2011 THER/PROPH/DIAG INJ SC/IM CPT-4: 41710 05/02/2011 KETOROLAC TROMETHAMINE INJ CPT-4: J1885 05/02/2011 PRESCRIP TRANSMIT VIA ERX SY CPT-4: G8553 04/25/2011 CUR TOBACCO NON-USER CPT-4: G8457 04/04/2011 PRESCRIP TRANSMIT VIA ERX SY CPT-4: G8553 04/04/2011 DRAIN/INJECT JOINT/BURSA CPT-4: 21727 03/01/2011 METHYLPREDNISOLONE 40 MG INJ CPT-4: J1030 03/01/2011 TRIAMCINOLONE ACET INJ NOS CPT-4: J3301 03/01/2011 DRAIN/INJECT JOINT/BURSA CPT-4: 99344 01/04/2011 METHYLPREDNISOLONE 40 MG INJ CPT-4: J1030 01/04/2011 TRIAMCINOLONE ACET INJ NOS CPT-4: J3301 01/04/2011 PRESCRIP TRANSMIT VIA ERX SY CPT-4: G8553 12/07/2010 PRESCRIP TRANSMIT VIA ERX SY CPT-4: G8553 10/09/2010 PRESCRIP TRANSMIT VIA ERX SY CPT-4: G8553 06/06/2010 DRAIN/INJECT JOINT/BURSA CPT-4: 90684 04/12/2010 TRIAMCINOLONE ACET INJ NOS CPT-4: J3301 04/12/2010 METHYLPREDNISOLONE 80 MG INJ CPT-4: J1040 04/12/2010 PRESCRIP TRANSMIT VIA ERX SY CPT-4: G8553 03/20/2010 THER/PROPH/DIAG INJ SC/IM CPT-4: 27818 01/30/2010 KETOROLAC TROMETHAMINE INJ CPT-4: J1885 01/30/2010 PRESCRIP TRANSMIT VIA ERX SY CPT-4: G8553 01/30/2010 DRAIN/INJECT JOINT/BURSA CPT-4: 75524 10/26/2009 TRIAMCINOLONE ACET INJ NOS CPT-4: J3301 10/26/2009 METHYLPREDNISOLONE 80 MG INJ CPT-4: J1040 10/26/2009 DRAINAGE OF SKIN ABSCESS CPT-4: 23499 10/04/2009 Vital Signs Date Vital 08/30/2022 Blood Pressure 1: 124/74 Code: 8480-6 Heart Rate 1: 74 bpm Respiratory Rate: 20 bpm SpO2: 96% Temperature: 36.3 (C) / 97.3 (F) We ight: 224 lbs Code: 35858-7 08/07/2022 Blood Pressure 1: 126/74 Code: 8480-6 Heart Rate 1: 73 bpm Respiratory Rate: 20 bpm SpO2: 97% Temperature: 36.2 (C) / 97.1 (F) We ight: 222 lbs Code: 68391-9 06/29/2022 Blood Pressure 1: 132/73 Code: 8480-6 BMI: 36.7 Code: 77219-7 Heart Rate 1: 74 bpm Height: 5'6" Code: 8302-2 SpO2: 96% Temperature: 3 6.4 (C) / 97.6 (F) Weight: 226 lbs Code: 23468-0 05/28/2022 Blood Pressure 1: 129/78 Code: 8480-6 BMI: 37.7 Code: 59497-9 Heart Rate 1: 72 bpm Height: 5'6" Code: 8302-2 SpO2: 95% Temperature: 3 6.2 (C) / 97.1 (F) Weight: 232 lbs Code: 20165-5 05/10/2022 Blood Pressure 1: 133/75 Code: 8480-6 BMI: 38.3 Code: 28714-7 Heart Rate 1: 68 bpm Height: 5'6" Code: 8302-2 SpO2: 98% Temperature: 3 6.2 (C) / 97.1 (F) Weight: 236 lbs Code: 45787-1 04/18/2022 Blood Pressure 1: 118/70 Code: 8480-6 Heart Rate 1: 86 bpm Respiratory Rate: 20 bpm SpO2: 96% Temperature: 36.6 (C) / 97.8 (F) We ight: 238 lbs Code: 69950-8 02/15/2022 Blood Pressure 1: 120/82 Code: 8480-6 Heart Rate 1: 88 bpm Respiratory Rate: 20 bpm SpO2: 98% Temperature: 36.1 (C) / 97.0 (F) We ight: 237 lbs Code: 82981-5 02/06/2022 Blood Pressure 1: 124/80 Code: 8480-6 BMI: 39.4 Code: 44799-3 Heart Rate 1: 76 bpm Height: 5'6" Code: 8302-2 Respiratory Rate: 20 bpm SpO2: 98% Temperature: 36.6 (C) / 97.9 (F) Weight: 242 lbs Code: 07685-9 02/01/2022 Blood Pressure 1: 144/100 Code: 8480-6 Heart Rat e 1: 108 bpm Respiratory Rate: 22 bpm SpO2: 96% Temperature: 36.4 (C) / 97.5 (F) 11/29/2021 Blood Pressure 1: 128/80 Code: 8480-6 Heart Rate 1: 56 bpm Respiratory Rate: 20 bpm SpO2: 97% Temperature: 36.7 (C) / 98.1 (F) We ight: 242 lbs Code: 06923-1 11/22/2021 Blood Pressure 1: 118/80 Code: 8480-6 Heart Rate 1: 84 bpm Respiratory Rate: 20 bpm SpO2: 99% Temperature: 36.3 (C) / 97.4 (F) 11/21/2021 Blood Pressure 1: 132/80 Code: 8480-6 Heart Rate 1: 98 bpm Respiratory Rate: 20 bpm SpO2: 99% Weight: 238 lbs Code: 38501 -7 11/09/2021 Blood Pressure 1: 136/86 Code: 8480-6 Heart Rate 1: 68 bpm Respiratory Rate: 20 bpm SpO2: 95% Temperature: 36.4 (C) / 97.5 (F) We ight: 244 lbs Code: 46600-7 10/31/2021 Blood Pressure 1: 128/80 Code: 8480-6 Heart Rate 1: 80 bpm Respiratory Rate: 28 bpm SpO2: 93% Temperature: 38.0 (C) / 100. 4 (F) 10/30/2021 Blood Pressure 1: 136/82 Code: 8480-6 Heart Rate 1: 120 bpm Respiratory Rate: 24 bpm SpO2: 95% Temperature: 38.0 (C) / 100. 4 (F) 09/05/2021 Blood Pressure 1: 118/84 Code: 8480-6 BMI: 38.5 Code: 53027-8 Heart Rate 1: 72 bpm Height: 5'7" Code: 8302-2 Respiratory Rate: 20 bpm SpO2: 95% Temperature: 36.3 (C) / 97.4 (F) Weight: 246 lbs Code: 82927-9 08/24/2021 Blood Pressure 1: 132/84 Code: 8480-6 Heart Rate 1: 76 bpm Respiratory Rate: 19 bpm SpO2: 98% Temperature: 36.7 (C) / 98.1 (F) We ight: Code: 32037-1 03/01/2021 Blood Pressure 1: 90/52 Code: 8480-6 Heart Rate 1: 66 bpm Respiratory Rate: 22 bpm SpO2: 97% 02/08/2021 Blood Pressure 1: 132/75 Code: 8480-6 Heart Rate 1: 74 bpm Respiratory Rate: 18 bpm SpO2: 98% Temperature: 36.3 (C) / 97.3 (F) We ight: 247 lbs Code: 83880-1 01/19/2021 Blood Pressure 1: 126/76 Code: 8480-6 Heart Rate 1: 76 bpm Respiratory Rate: 20 bpm SpO2: 98% Temperature: 37.1 (C) / 98.8 (F) We ight: 244 lbs Code: 14646-6 01/03/2021 Blood Pressure 1: 124/64 Code: 8480-6 BMI: 38.5 Code: 65431-6 Heart Rate 1: 76 bpm Height: 5'7" Code: 8302-2 Respiratory Rate: 20 bpm SpO2: 96% Temperature: 36.4 (C) / 97.6 (F) Weight: 246 lbs Code: 02399-5 11/29/2020 Blood Pressure 1: 119/68 Code: 8480-6 Heart Rate 1: 73 bpm Respiratory Rate: 20 bpm SpO2: 95% Temperature: 36.1 (C) / 96.9 (F) We ight: 245 lbs Code: 58356-5 09/29/2020 Blood Pressure 1: 136/79 Code: 8480-6 Heart Rate 1: 67 bpm Respiratory Rate: 15 bpm SpO2: 98% Temperature: 36.2 (C) / 97.1 (F) We ight: 237 lbs Code: 96656-5 09/19/2020 Blood Pressure 1: 135/82 Code: 8480-6 Heart Rate 1: 76 bpm Respiratory Rate: 17 bpm SpO2: 96% Temperature: 36.6 (C) / 97.8 (F) We ight: 238 lbs Code: 34837-0 08/10/2020 Blood Pressure 1: 126/82 Code: 8480-6 Heart Rate 1: 60 bpm Respiratory Rate: 20 bpm SpO2: 96% Temperature: 36.3 (C) / 97.3 (F) We ight: 238 lbs Code: 40612-1 08/01/2020 Temperature: 36.6 (C) / 97.8 (F) 07/13/2020 Blood Pressure 1: 132/80 Code: 8480-6 Heart Rate 1: 76 bpm Respiratory Rate: 20 bpm SpO2: 97% Temperature: 36.2 (C) / 97.2 (F) We ight: 228 lbs Code: 38588-4 07/05/2020 Temperature: 35.9 (C) / 96.7 (F) 06/22/2020 Blood Pressure 1: 134/82 Code: 8480-6 Heart Rate 1: 60 bpm Respiratory Rate: 20 bpm SpO2: 96% Temperature: 36.4 (C) / 97.6 (F) We ight: 235 lbs Code: 28920-3 05/17/2020 Blood Pressure 1: 141/72 Code: 8480-6 Heart Rate 1: 78 bpm Respiratory Rate: 16 bpm SpO2: 98% Temperature: 36.3 (C) / 97.3 (F) We ight: 232 lbs Code: 57890-4 03/14/2020 Blood Pressure 1: 126/92 Code: 8480-6 Heart Rate 1: 72 bpm Respiratory Rate: 22 bpm SpO2: 96% Temperature: 36.3 (C) / 97.4 (F) We ight: 225 lbs Code: 95664-0 03/07/2020 Blood Pressure 1: 124/86 Code: 8480-6 Heart Rate 1: 72 bpm Respiratory Rate: 24 bpm SpO2: 93% Temperature: 36.2 (C) / 97.1 (F) We ight: 227 lbs Code: 96240-8 12/21/2019 Blood Pressure 1: 114/72 Code: 8480-6 BMI: 36.2 Code: 41275-8 Heart Rate 1: 60 bpm Height: 5'7" Code: 8302-2 Respiratory Rate: 20 bpm SpO2: 97% Temperature: 36.7 (C) / 98.1 (F) Weight: 231 lbs Code: 29497-0 09/02/2019 Blood Pressure 1: 138/85 Code: 8480-6 Heart Rate 1: 76 bpm Respiratory Rate: 20 bpm SpO2: 96% Temperature: 36.3 (C) / 97.3 (F) We ight: 226 lbs Code: 83995-2 07/09/2019 Blood Pressure 1: 123/63 Code: 8480-6 BMI: 34.9 Code: 43366-7 Heart Rate 1: 64 bpm Height: 5'7" Code: 8302-2 Respiratory Rate: 17 bpm SpO2: 97% Temperature: 37.0 (C) / 98.6 (F) Weight: 223 lbs Code: 66261-5 04/15/2019 Blood Pressure 1: 110/82 Code: 8480-6 Heart Rate 1: 66 bpm SpO2: 98% Temperature: 36.1 (C) / 96.9 (F) Weight: 223 lbs Code: 20574-8 04/07/2019 Blood Pressure 1: 132/80 Code: 8480-6 Heart Rate 1: 68 bpm Temperature: 36.9 (C) / 98.4 (F) Weight: 222 lbs Code: 40055-6 03/25/2019 Blood Pressure 1: 108/70 Code: 8480-6 Heart Rate 1: 64 bpm Respiratory Rate: 20 bpm SpO2: 96% Temperature: 36.2 (C) / 97.2 (F) We ight: 221 lbs Code: 53004-9 03/18/2019 Blood Pressure 1: 138/82 Code: 8480-6 Heart Rate 1: 74 bpm SpO2: 99% Temperature: 36.1 (C) / 96.9 (F) Weight: 223 lbs Code: 39248-2 01/26/2019 Blood Pressure 1: 138/90 Code: 8480-6 Heart Rate 1: 68 bpm SpO2: 96% Temperature: 35.9 (C) / 96.7 (F) Weight: 227 lbs Code: 55712-0 01/08/2019 Blood Pressure 1: 134/78 Code: 8480-6 BMI: 36.8 Code: 90923-9 Heart Rate 1: 76 bpm Height: 5'7" Code: 8302-2 SpO2: 93% Temperature: 3 6.4 (C) / 97.6 (F) Weight: 235 lbs Code: 04749-3 01/06/2019 Blood Pressure 1: 116/80 Code: 8480-6 Heart Rate 1: 72 bpm Respiratory Rate: 20 bpm SpO2: 98% Temperature: 36.5 (C) / 97.7 (F) We ight: 232 lbs Code: 26073-0 12/11/2018 Blood Pressure 1: 120/82 Code: 8480-6 BMI: 36.2 Code: 15714-6 Heart Rate 1: 67 bpm Height: 5'7" Code: 8302-2 Respiratory Rate: 18 bpm SpO2: 96% Temperature: 35.9 (C) / 96.7 (F) Weight: 231 lbs Code: 01423-4 10/30/2018 Blood Pressure 1: 126/82 Code: 8480-6 Heart Rate 1: 80 bpm Respiratory Rate: 20 bpm SpO2: 96% Temperature: 36.8 (C) / 98.3 (F) We ight: 228 lbs Code: 14686-0 10/07/2018 Blood Pressure 1: 130/90 Code: 8480-6 Heart Rate 1: 76 bpm Respiratory Rate: 24 bpm SpO2: 97% Temperature: 36.0 (C) / 96.8 (F) We ight: 229 lbs Code: 25017-2 06/23/2018 Blood Pressure 1: 132/80 Code: 8480-6 Heart Rate 1: 72 bpm Respiratory Rate: 20 bpm SpO2: 98% Temperature: 36.7 (C) / 98.0 (F) We ight: 233 lbs Code: 00613-1 01/16/2018 Blood Pressure 1: 116/82 Code: 8480-6 Heart Rate 1: 72 bpm Respiratory Rate: 20 bpm SpO2: 96% Temperature: 36.9 (C) / 98.5 (F) We ight: 230 lbs Code: 59443-8 10/16/2017 Blood Pressure 1: 116/74 Code: 8480-6 BMI: 35.1 Code: 02841-5 Heart Rate 1: 76 bpm Height: 5'7" Code: 8302-2 Respiratory Rate: 20 bpm SpO2: 98% Temperature: 36.7 (C) / 98.1 (F) Weight: 224 lbs Code: 53753-2 09/12/2017 Blood Pressure 1: 124/78 Code: 8480-6 BMI: 34.6 Code: 69646-7 Heart Rate 1: 84 bpm Height: 5'7" Code: 8302-2 Respiratory Rate: 20 bpm SpO2: 95% Temperature: 36.6 (C) / 97.8 (F) Weight: 221 lbs Code: 98503-7 08/20/2017 Blood Pressure 1: 126/78 Code: 8480-6 Heart Rate 1: 92 bpm Height: 5'7" Code: 8302-2 Respiratory Rate: 20 bpm SpO2: 96% Temperature: 36 .9 (C) / 98.5 (F) 08/13/2017 Blood Pressure 1: 124/80 Code: 8480-6 BMI: 34.8 Code: 43444-6 Heart Rate 1: 80 bpm Height: 5'7" Code: 8302-2 Respiratory Rate: 20 bpm SpO2: 96% Temperature: 36.7 (C) / 98.0 (F) Weight: 222 lbs Code: 49294-7 07/29/2017 Blood Pressure 1: 114/70 Code: 8480-6 BMI: 34.5 Code: 10379-7 Heart Rate 1: 76 bpm Height: 5'7" Code: 8302-2 Respiratory Rate: 20 bpm SpO2: 97% Temperature: 36.9 (C) / 98.4 (F) Weight: 220 lbs Code: 52640-6 07/25/2017 Blood Pressure 1: 142/76 Code: 8480-6 BMI: 34.9 Code: 11804-0 Heart Rate 1: 92 bpm Height: 5'7" Code: 8302-2 Respiratory Rate: 18 bpm SpO2: 96% Temperature: 36.7 (C) / 98.1 (F) Weight: 223 lbs Code: 69144-8 06/10/2017 Blood Pressure 1: 136/82 Code: 8480-6 BMI: 34.3 Code: 83173-3 Heart Rate 1: 68 bpm Height: 5'7" Code: 8302-2 Respiratory Rate: 20 bpm SpO2: 96% Temperature: 36.7 (C) / 98.0 (F) Weight: 219 lbs Code: 07146-3 05/28/2017 Blood Pressure 1: 136/70 Code: 8480-6 BMI: 34.1 Code: 02653-1 Heart Rate 1: 84 bpm Height: 5'7" Code: 8302-2 Respiratory Rate: 20 bpm SpO2: 95% Temperature: 35.9 (C) / 96.6 (F) Weight: 218 lbs Code: 82629-8 04/04/2017 Blood Pressure 1: 122/78 Code: 8480-6 BMI: 33.4 Code: 96188-7 Heart Rate 1: 68 bpm Height: 5'7" Code: 8302-2 Respiratory Rate: 20 bpm SpO2: 96% Temperature: 36.7 (C) / 98.0 (F) Weight: 213 lbs Code: 73634-4 11/28/2016 Blood Pressure 1: 114/82 Code: 8480-6 BMI: 33.7 Code: 72340-8 Heart Rate 1: 72 bpm Height: 5'7" Code: 8302-2 Respiratory Rate: 20 bpm SpO2: 98% Temperature: 36.4 (C) / 97.6 (F) Weight: 215 lbs Code: 80486-0 06/05/2016 Blood Pressure 1: 104/68 Code: 8480-6 BMI: 33.7 Code: 61955-6 Heart Rate 1: 68 bpm Height: 5'7" Code: 8302-2 Respiratory Rate: 20 bpm SpO2: 96% Temperature: 36.8 (C) / 98.2 (F) Weight: 215 lbs Code: 49176-6 11/08/2015 Blood Pressure 1: 122/70 Code: 8480-6 BMI: 33.8 Code: 08852-1 Heart Rate 1: 80 bpm Height: 5'7" Code: 8302-2 Respiratory Rate: 20 bpm Temperatu re: 36.8 (C) / 98.2 (F) Weight: 216 lbs Code: 94879-0 07/19/2015 Blood Pressure 1: 122/70 Code: 8480-6 BMI: 33.0 Code: 97256-5 Heart Rate 1: 80 bpm Height: 5'7" Code: 8302-2 Respiratory Rate: 18 bpm Temperatu re: 35.9 (C) / 96.6 (F) Weight: 211 lbs Code: 33814-7 03/28/2015 Blood Pressure 1: 124/70 Code: 8480-6 BMI: 31.8 Code: 07738-3 Heart Rate 1: 72 bpm Height: 5'7" Code: 8302-2 Respiratory Rate: 20 bpm Temperatu re: 36.8 (C) / 98.2 (F) Weight: 203 lbs Code: 86040-9 02/08/2015 Blood Pressure 1: 98/58 Code: 8480-6 BMI: 32.1 C ode: 28860-5 Heart Rate 1: 84 bpm Height: 5'7" Code: 8302-2 Respiratory Rate: 20 bpm Temperatu re: 36.7 (C) / 98.0 (F) Weight: 205 lbs Code: 25723-3 01/11/2015 Blood Pressure 1: 118/78 Code: 8480-6 BMI: 32.1 Code: 93697-7 Heart Rate 1: 84 bpm Height: 5'7" Code: 8302-2 Respiratory Rate: 20 bpm Temperatu re: 36.6 (C) / 97.9 (F) Weight: 205 lbs Code: 69588-5 11/24/2014 Blood Pressure 1: 124/80 Code: 8480-6 BMI: 32.0 Code: 49214-7 Heart Rate 1: 76 bpm Height: 5'7" Code: 8302-2 Respiratory Rate: 20 bpm Temperatu re: 36.2 (C) / 97.1 (F) Weight: 204 lbs Code: 24004-6 11/19/2014 Blood Pressure 1: 132/78 Code: 8480-6 BMI: 32.7 Code: 47509-3 Heart Rate 1: 68 bpm Height: 5'7" Code: 8302-2 Respiratory Rate: 20 bpm SpO2: 98% Temperature: 36.7 (C) / 98.0 (F) Weight: 209 lbs Code: 47174-9 10/27/2014 Blood Pressure 1: 118/76 Code: 8480-6 BMI: 32.6 Code: 24014-8 Heart Rate 1: 64 bpm Height: 5'7" Code: 8302-2 Respiratory Rate: 20 bpm Temperatu re: 36.7 (C) / 98.0 (F) Weight: 208 lbs Code: 56250-2 09/23/2014 Blood Pressure 1: 118/68 Code: 8480-6 BMI: 34.3 Code: 72103-6 Heart Rate 1: 78 bpm Height: 5'7" Code: 8302-2 Respiratory Rate: 22 bpm Temperatu re: 36.4 (C) / 97.6 (F) Weight: 219 lbs Code: 36826-4 07/28/2014 Blood Pressure 1: 126/80 Code: 8480-6 BMI: 33.5 Code: 54896-9 Heart Rate 1: 76 bpm Height: 5'7" Code: 8302-2 Respiratory Rate: 20 bpm Temperatu re: 36.4 (C) / 97.6 (F) Weight: 214 lbs Code: 86770-6 03/30/2014 Blood Pressure 1: 128/80 Code: 8480-6 BMI: 35.2 Code: 91095-4 Heart Rate 1: 88 bpm Height: 5'7" Code: 8302-2 Respiratory Rate: 20 bpm Temperatu re: 36.4 (C) / 97.6 (F) Weight: 225 lbs Code: 50443-1 11/24/2013 Blood Pressure 1: 124/82 Code: 8480-6 BMI: 35.6 Code: 95803-0 Heart Rate 1: 80 bpm Height: 5'7" Code: 8302-2 Respiratory Rate: 22 bpm Temperatu re: 36.2 (C) / 97.1 (F) Weight: 227 lbs Code: 57142-9 08/25/2013 Blood Pressure 1: 128/80 Code: 8480-6 BMI: 37.4 Code: 17880-7 Heart Rate 1: 76 bpm Height: 5'7" Code: 8302-2 Respiratory Rate: 20 bpm Temperatu re: 36.6 (C) / 97.9 (F) Weight: 239 lbs Code: 70712-5 06/29/2013 Blood Pressure 1: 106/78 Code: 8480-6 BMI: 38.1 Code: 20433-4 Heart Rate 1: 80 bpm Height: 5'7" Code: 8302-2 Respiratory Rate: 20 bpm Temperatu re: 36.6 (C) / 97.9 (F) Weight: 243 lbs Code: 49755-2 05/26/2013 Blood Pressure 1: 122/80 Code: 8480-6 BMI: 39.3 Code: 66350-1 Heart Rate 1: 80 bpm Height: 5'7" Code: 8302-2 Respiratory Rate: 20 bpm Temperatu re: 36.9 (C) / 98.4 (F) Weight: 251 lbs Code: 92596-3 05/06/2013 Blood Pressure 1: 128/78 Code: 8480-6 BMI: 39.2 Code: 55101-2 Heart Rate 1: 76 bpm Height: 5'7" Code: 8302-2 Respiratory Rate: 22 bpm Temperatu re: 35.8 (C) / 96.4 (F) Weight: 250 lbs Code: 63064-5 04/23/2013 Blood Pressure 1: 132/92 Code: 8480-6 BMI: 39.6 Code: 90034-4 Heart Rate 1: 88 bpm Height: 5'7" Code: 8302-2 Respiratory Rate: 28 bpm SpO2: 97% Temperature: 36.5 (C) / 97.7 (F) Weight: 253 lbs Code: 75101-4 03/31/2013 Blood Pressure 1: 122/80 Code: 8480-6 BMI: 39.0 Code: 52751-9 Heart Rate 1: 84 bpm Height: 5'7" Code: 8302-2 Respiratory Rate: 20 bpm Temperatu re: 36.6 (C) / 97.8 (F) Weight: 249 lbs Code: 29805-1 03/05/2013 Blood Pressure 1: 120/80 Code: 8480-6 BMI: 39.2 Code: 37584-6 Heart Rate 1: 60 bpm Height: 5'7" Code: 8302-2 Respiratory Rate: 22 bpm Temperatu re: 35.9 (C) / 96.6 (F) Weight: 250 lbs Code: 91770-8 02/04/2013 Blood Pressure 1: 124/80 Code: 8480-6 BMI: 38.4 Code: 38091-8 Heart Rate 1: 80 bpm Height: 5'7" Code: 8302-2 Respiratory Rate: 20 bpm Temperatu re: 36.4 (C) / 97.6 (F) Weight: 245 lbs Code: 58187-9 11/27/2012 Blood Pressure 1: 127/83 Code: 8480-6 Te mperature: 36.1 (C) / 96.9 (F) Weight: 243 lbs 2 oz Code: 19434-6 11/11/2012 Blood Pressure 1: 126/82 Code: 8480-6 BMI: 37.4 Code: 40747-5 Heart Rate 1: 80 bpm Height: 5'7" Code: 8302-2 Respiratory Rate: 20 bpm Temperatu re: 36.8 (C) / 98.2 (F) Weight: 239 lbs Code: 08019-2 10/20/2012 Blood Pressure 1: 114/80 Code: 8480-6 BMI: 37.1 Code: 12072-4 Heart Rate 1: 104 bpm Height: 5'7" Code: 8302-2 Respiratory Rate: 20 bpm Temperatu re: 36.9 (C) / 98.4 (F) Weight: 237 lbs Code: 72172-5 09/03/2012 Blood Pressure 1: 118/72 Code: 8480-6 BMI: 37.3 Code: 47034-1 Heart Rate 1: 70 bpm Height: 5'7" Code: 8302-2 Temperature: 35.6 (C) / 96.0 (F) Weight: 238 lbs Code: 79164-6 07/23/2012 Blood Pressure 1: 124/78 Code: 8480-6 BMI: 36.8 Code: 60614-3 Heart Rate 1: 68 bpm Height: 5'7" Code: 8302-2 Temperature: 35.6 (C) / 96.0 (F) Weight: 235 lbs Code: 01154-1 05/20/2012 Blood Pressure 1: 112/70 Code: 8480-6 BMI: 37.1 Code: 01160-6 Heart Rate 1: 76 bpm Height: 5'7" Code: 8302-2 Respiratory Rate: 20 bpm Temperatu re: 36.7 (C) / 98.1 (F) Weight: 237 lbs Code: 50477-5 04/04/2012 Blood Pressure 1: 110/64 Code: 8480-6 BMI: 37.1 Code: 47675-0 Heart Rate 1: 68 bpm Height: 5'7" Code: 8302-2 Temperature: 36.1 (C) / 97.0 (F) Weight: 237 lbs Code: 45926-4 02/20/2012 Blood Pressure 1: 136/78 Code: 8480-6 BMI: 37.1 Code: 45357-4 Heart Rate 1: 72 bpm Height: 5'7" Code: 8302-2 Respiratory Rate: 20 bpm Temperatu re: 36.7 (C) / 98.0 (F) Weight: 237 lbs Code: 90336-7 01/02/2012 Blood Pressure 1: 122/70 Code: 8480-6 BMI: 37.1 Code: 82760-7 Heart Rate 1: 76 bpm Height: 5'7" Code: 8302-2 Respiratory Rate: 20 bpm Temperatu re: 37.0 (C) / 98.6 (F) Weight: 237 lbs Code: 92349-8 09/04/2011 Blood Pressure 1: 120/84 Code: 8480-6 BMI: 35.4 Code: 90287-4 Heart Rate 1: 68 bpm Height: 5'7" Code: 8302-2 Temperature: 30.0 (C) / 86.0 (F) Weight: 226 lbs Code: 32412-4 08/14/2011 Blood Pressure 1: 120/82 Code: 8480-6 BMI: 36.5 Code: 64964-3 Heart Rate 1: 80 bpm Height: 5'7" Code: 8302-2 Temperature: 36.6 (C) / 97.8 (F) Weight: 233 lbs Code: 77535-6 07/31/2011 Blood Pressure 1: 138/86 Code: 8480-6 BMI: 37.0 Code: 11723-0 Heart Rate 1: 94 bpm Height: 5'7" Code: 8302-2 Temperature: 35.4 (C) / 95.7 (F) Weight: 236 lbs Code: 72848-3 07/25/2011 Blood Pressure 1: 128/80 Code: 8480-6 BMI: 37.0 Code: 48780-1 Heart Rate 1: 80 bpm Height: 5'7" Code: 8302-2 Temperature: 35.6 (C) / 96.0 (F) Weight: 236 lbs Code: 03570-0 07/12/2011 Blood Pressure 1: 132/80 Code: 8480-6 BMI: 37.0 Code: 65959-7 Heart Rate 1: 96 bpm Height: 5'7" Code: 8302-2 Respiratory Rate: 20 bpm Temperatu re: 36.3 (C) / 97.3 (F) Weight: 236 lbs Code: 32972-2 05/09/2011 Blood Pressure 1: 106/78 Code: 8480-6 BMI: 36.6 Code: 00059-2 Heart Rate 1: 72 bpm Height: 5'7" Code: 8302-2 Respiratory Rate: 20 bpm Temperatu re: 36.4 (C) / 97.6 (F) Weight: 234 lbs Code: 56878-8 05/02/2011 Blood Pressure 1: 96/72 Code: 8480-6 BMI: 36.6 C ode: 17183-7 Heart Rate 1: 108 bpm Height: 5'7" Code: 8302-2 Respiratory Rate: 24 bpm Temperatu re: 36.7 (C) / 98.0 (F) Weight: 234 lbs Code: 72563-0 04/25/2011 Blood Pressure 1: 120/72 Code: 8480-6 BMI: 36.5 Code: 17533-4 Heart Rate 1: 70 bpm Height: 5'7" Code: 8302-2 Temperature: 36.7 (C) / 98.0 (F) Weight: 233 lbs Code: 67554-2 04/04/2011 Blood Pressure 1: 126/92 Code: 8480-6 BMI: 36.5 Code: 36206-9 Heart Rate 1: 84 bpm Height: 5'7" Code: 8302-2 Respiratory Rate: 20 bpm Temperatu re: 36.2 (C) / 97.2 (F) Weight: 233 lbs Code: 35770-4 03/01/2011 Blood Pressure 1: 132/78 Code: 8480-6 Heart Rate 1: 88 bpm Temperature: 36.8 (C) / 98.2 (F) Weight: 231 lbs Code: 44305-1 01/04/2011 Blood Pressure 1: 122/78 Code: 8480-6 BMI: 37.0 Code: 46824-8 Heart Rate 1: 80 bpm Height: 5'7" Code: 8302-2 Temperature: 37.0 (C) / 98.6 (F) Weight: 236 lbs Code: 72077-5 12/07/2010 Blood Pressure 1: 132/92 Code: 8480-6 Heart Rate 1: 98 bpm Temperature: 36.2 (C) / 97.2 (F) Weight: 237 lbs Code: 99996-2 10/09/2010 Blood Pressure 1: 128/80 Code: 8480-6 Heart Rate 1: 72 bpm Temperature: 36.5 (C) / 97.7 (F) Weight: 244 lbs Code: 81048-5 08/07/2010 Blood Pressure 1: 114/80 Code: 8480-6 Heart Rate 1: 72 bpm Temperature: 36.2 (C) / 97.1 (F) Weight: 245 lbs Code: 80885-5 06/06/2010 Blood Pressure 1: 132/86 Code: 8480-6 Heart Rate 1: 80 bpm Temperature: 36.8 (C) / 98.2 (F) Weight: 242 lbs Code: 36198-0 04/12/2010 Blood Pressure 1: 126/82 Code: 8480-6 Heart Rate 1: 72 bpm Temperature: 36.8 (C) / 98.2 (F) Weight: 237 lbs Code: 08388-8 03/20/2010 Blood Pressure 1: 124/78 Code: 8480-6 Heart Rate 1: 76 bpm Temperature: 36.1 (C) / 97.0 (F) Weight: 239 lbs Code: 02437-5 01/30/2010 Blood Pressure 1: 118/80 Code: 8480-6 Heart Rate 1: 84 bpm Temperature: 37.1 (C) / 98.7 (F) Weight: 239 lbs Code: 26750-7 01/09/2010 Blood Pressure 1: 120/72 Code: 8480-6 BMI: 36.8 Code: 19542-5 Heart Rate 1: 80 bpm Height: 5'7" Code: 8302-2 Temperature: 36.1 (C) / 97.0 (F) Weight: 235 lbs Code: 20721-4 11/07/2009 Blood Pressure 1: 140/36 Cod e: 8480-6 10/26/2009 Blood Pressure 1: 126/82 Code: 8480-6 BMI: 36.9 Code: 71534-0 Heart Rate 1: 84 bpm Height: 5'7" Code: 8302-2 Temperature: 36.5 (C) / 97.7 (F) Weight: 234 lbs Code: 90778-1 10/17/2009 Blood Pressure 1: 140/88 Code: 8480-6 BMI: 36.3 Code: 21533-8 Heart Rate 1: 88 bpm Height: 5'7" Code: 8302-2 Temperature: 36.7 (C) / 98.0 (F) Weight: 232 lbs Code: 15770-5 10/04/2009 Blood Pressure 1: 140/90 Code: 8480-6 BMI: 36.3 Code: 08921-2 Heart Rate 1: 84 bpm Height: 5'7" Code: 8302-2 Temperature: 36.4 (C) / 97.6 (F) Weight: 232 lbs Code: 26042-2 09/21/2009 Blood Pressure 1: 136/82 Code: 8480-6 BMI: 36.3 Code: 30213-1 Heart Rate 1: 88 bpm Height: 5'7" Code: 8302-2 Temperature: 35.8 (C) / 96.4 (F) Weight: 232 lbs Code: 50424-2 Functional Status No Functional Status data Reason For Visit Reason For Visit Effective Dates Notes ~generic 08/30/2022 [address]ard elvia lawson. 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] Diagnosis: Cervicalgia[ICD10: M54.2] Marlene MAGANAR DO [facility] [address] [place] [address] CPT-4: 49803 08/30/2022 ([id number]) OFFICE/OUTPATIENT VISIT EST Diagnosis: Hypothyroidism[ICD10: E03.9] Diagnosis: Essential (primary) hypertension[ICD10: I10] Diagnosis: Mixed hyperlipidemia[ICD10: E78.2] Diagnosis: Stress at home[ICD10: F43.9] Jayna VANESSA [address] [address] CPT-4: 24042 08/07/2022 ([id number]) OFFICE/OUTPATIENT VISIT EST Diagnosis: Acute cystitis[ICD10: N30.00] Marlene VANESSA [address] [address] CPT-4: 82061 06/29/2022 ([id number]) OFFICE/OUTPATIENT VISIT EST Diagnosis: Depression[ICD10: F32.A] Diagnosis: Hypothyroidism[ICD10: E03.9] Jayna VANESSA [address] [address] CPT-4: 28990 05/28/2022 ([id number]) OFFICE/OUTPATIENT VISIT EST Diagnosis: Depression[ICD10: F32.A] Diagnosis: Fatigue[ICD10: R53.83] Diagnosis: Hypothyroidism[ICD10: E03.9] Diagnosis: Hyperglycemia[ICD10: R73.9] Jayna Partida ITALO [address] [address] CPT-4: 68306 05/10/2022 ([id number]) OFFICE/OUTPATIENT VISIT EST Diagnosis: Migraine, intractable[ICD10: G43.919] Marlene VANESSA [address] [address] CPT-4: 77109 04/18/2022 ([id number]) NURSE/OUTPATIENT VISIT EST Diagnosis: FLU VACCINE[ICD10: Z23] Jayna JIANG [address] [address] CPT-4: 98478 04/05/2022 ([id number]) OFFICE/OUTPATIENT VISIT EST Diagnosis: Allergic rhinitis[ICD10: J30.9] Diagnosis: Acute sinusitis[ICD10: J01.90] 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] Jayna VANESSA [address] [address] CPT-4: 39321 02/15/2022 ([id number]) Annual depression screening, 15 minutes Diagnosis: Encounter for general adult medical examination without abnormal findings[ICD10: Z00.00] Diagnosis: Essential (primary) hypertension[ICD10: I10] Diagnosis: Mixed hyperlipidemia[ICD10: E78.2] Diagnosis: Hypothyroidism, unspecified[ICD10: E03.9] Diagnosis: Chronic obstructive pulmonary disease, unspecified[ICD10: J44.9] Jayna VANESSA [address] [address] CPT-4: G0444 02/06/2022 ([id number]) OFFICE/OUTPATIENT VISIT EST Diagnosis: 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] Diagnosis: Vision changes[ICD10: H53.9] Latasha Kika JAYNA VANESSA [address] [address] CPT-4: 25884 02/01/2022 ([id number]) OFFICE/OUTPATIENT VISIT EST Diagnosis: Diarrhea[ICD10: R19.7] Diagnosis: Cough[ICD10: R05.9] Jayna VANESSA [address] [address] CPT-4: 47969 11/30/19 ([id number]) OFFICE/OUTPATIENT VISIT EST Diagnosis: Post-viral cough syndrome[ICD10: R05.8] Diagnosis: Otalgia of both ears[ICD10: H92.03] Diagnosis: Diarrhea[ICD10: R19.7] Jayna Jessicamarialuisa JAYNA Daniel Villalba [address] [address] CPT-4: 85819 11/22/2021 ([id number]) OFFICE/OUTPATIENT VISIT EST Diagnosis: Diarrhea of presumed infectious origin[ICD10: R19.7] Diagnosis: Altered taste[ICD10: R43.2] Diagnosis: Chronic bronchitis[ICD10: J42] Diagnosis: History of recent pneumonia[ICD10: Z87.01] Latasha VANESSA DO [address] [address] CPT- 4: 62385 11/21/2021 ([id number]) OFFICE/OUTPATIENT VISIT EST Diagnosis: Serous otitis media[ICD10: H65.90] Diagnosis: Postnasal drip[ICD10: R09.82] Diagnosis: Pneumonia[ICD10: J18.9] Jayna MORILLOLINE Daniel LOPEZND ER DO [address] [address] CPT-4: 45399 11/09/2021 ([id number]) NO CHARGE Diagnosis: Pneumonia[ICD10: J18.9] Diagnosis: Respiratory distress[ICD10: R06.03] Jaynapilar Vanessa FLAKITO ANNE MARIE Daniel LOPEZNDER DO [address] [address] CPT-4: 04226 10/31/2021 ([id number]) OFFICE/OUTPATIENT VISIT EST Diagnosis: Vertigo[ICD10: R42] Diagnosis: Nausea[ICD10: R11.0] Diagnosis: Pneumonia[ICD10: J18.9] Jayna Jessicaleydaapolinar MORILLOJAYNA Daniel BRUCE ER DO [address] [address] CPT-4: 07983 10/30/2021 ([id number]) OFFICE/OUTPATIENT VISIT EST Diagnosis: Cervicalgia[ICD10: M54.2] Jayna Jessicamarialuisa JAYNA Daniel LOPEZ NDER DO [address] [address] CPT-4: 65648 09/05/2021 ([id number]) OFFICE/OUTPATIENT VISIT EST Diagnosis: 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] Diagnosis: Seronegative rheumatoid arthritis[ICD10: M06.00] Latasha BRUCEER DO [address] [address] CPT- 4: 50938 08/24/2021 ([id number]) OFFICE/OUTPATIENT VISIT EST Diagnosis: Upper respiratory infection[ICD10: J06.9] Diagnosis: Contact with and (suspected) exposure to other viral communicable diseases[ICD10: Z20.828] Latasha VANESSA DO [address] [address] CPT-4: 19888 07/04/2021 ([id number]) NURSE/OUTPATIENT VISIT EST Diagnosis: FLU VACCINE[ICD10: Z23] Jayna JIANG DO [address] [address] CPT-4: 78754 03/29/2021 ([id number]) OFFICE/OUTPATIENT VISIT EST Diagnosis: Vasovagal episode[ICD10: R55] Diagnosis: Orthostatic hypotension[ICD10: I95.1] Latasha VANESSA DO [address] [address] CPT-4: 57208 03/01/2021 ([id number]) OFFICE/OUTPATIENT VISIT EST Diagnosis: Sebaceous cyst of right axilla[ICD10: L72.3] Latasha VANESSA DO [address] [address] CPT- 4: 00584 02/08/2021 ([id number]) OFFICE/OUTPATIENT VISIT EST Diagnosis: Contact dermatitis[ICD10: L25.9] Jayna VANESSA DO [address] [address] CPT-4: 05039 01/19/2021 ([id number]) OFFICE/OUTPATIENT VISIT EST Diagnosis: Upper respiratory infection[ICD10: J06.9] Diagnosis: COPD exacerbation[ICD10: J44.1] Latasha VANESSA DO [address] [address] CPT-4: 84474 11/29/2020 ([id number]) OFFICE/OUTPATIENT VISIT EST Diagnosis: Sinusitis[ICD10: J32.9] Diagnosis: Acute pansinusitis, recurrence not specified[ICD10: J01.40] Latasha VANESSA [address] [address] CPT-4: 87444 09/29/2020 OFFICE/OUTPATIENT VISIT EST Diagnosis: Other seasonal allergic rhinitis[ICD10: J30.2] Diagnosis: Chronic bronchitis[ICD10: J42] Diagnosis: 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] Diagnosis: Middle ear effusion[ICD10: H65.90] Diagnosis: Fluid level behind tympanic membrane of both ears[ICD10: H65.93] Latasha VANESSA [address] [address] CPT-4: 19330 09/19/2020 ([id number]) OFFICE/OUTPATIENT VISIT EST Diagnosis: Right-sided tinnitus[ICD10: H93.11] Jayna VANESSA [address] [address] CPT-4: 44196 08/10/2020 ([id number]) OFFICE/OUTPATIENT VISIT EST Diagnosis: Dysfunction of right eustachian tube[ICD10: H69.81] Diagnosis: Right-sided tinnitus[ICD10: H93.11] Jayna Bruceapolinar [address] [address] CPT-4: 50304 2020 ([id number]) OFFICE/OUTPATIENT VISIT EST Diagnosis: Pyelonephritis[ICD10: N12] Diagnosis: Anemia[ICD10: D64.9] Diagnosis: Blood in stool[ICD10: K92.1] Jayna VANESSA [address] [address] CPT-4: 66655 07/13/2020 ([id number]) OFFICE/OUTPATIENT VISIT EST Diagnosis: Acute gastroenteritis[ICD10: K52.9] Jayna KENNEY SPaige LOPEZNDER DO [address] [address] CPT-4: 25377 07/05/2020 ([id number]) OFFICE/OUTPATIENT VISIT EST Diagnosis: Essential hypertension[ICD10: I10] Diagnosis: Hypothyroidism, unspecified[ICD10: E03.9] Diagnosis: Metabolic syndrome[ICD10: E88.81] Diagnosis: Mixed hyperlipidemia[ICD10: E78.2] Diagnosis: 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] Jayna LOPEZNDER DO [address] [address] CPT- 4: 34639 06/22/2020 ([id number]) OFFICE/OUTPATIENT VISIT EST Diagnosis: Urinary tract infection[ICD10: N39.0] Jayna LOPEZNDER DO [address] [address] CPT-4: 07490 05/17/2020 ([id number]) OFFICE/OUTPATIENT VISIT EST Diagnosis: Right pulmonary embolus[ICD10: I26.99] Jayna PISANO HerbieBUZZ SPaige LOPEZNDER DO [address] [address] CPT-4: 14152 03/14/2020 ([id number]) OFFICE/OUTPATIENT VISIT EST Diagnosis: COVID-19[ICD10: U07.1] Diagnosis: Pneumonia[ICD10: J18.9] Diagnosis: Dyspnea[ICD10: R06.00] Jayna LOPEZNDE R DO [address] [address] CPT-4: 79710 03/07/2020 ([id number]) OFFICE/OUTPATIENT VISIT EST Diagnosis: Upper respiratory infection[ICD10: J06.9] Genesis MUNOZBUZZ S. ORENDER DO [address] [address] CPT-4: 83340 02/11/2020 ([id number]) OFFICE/OUTPATIENT VISIT EST Diagnosis: Dermatitis[ICD10: L30.9] Diagnosis: Urticaria[ICD10: L50.9] Jayna Vanessa [facility] [address] [place] [address] CPT-4: 84278 09/29/2019 ([id number]) OFFICE/OUTPATIENT VISIT EST Diagnosis: Bone spur of right foot[ICD10: M77.51] Diagnosis: Recurrent UTI[ICD10: N39.0] Diagnosis: MRSA (methicillin resistant staph aureus) culture positive[ICD10: Z22.322] Jayna Vanessa [facility] [address] [place] [address] CPT-4: 63049 09/14/2019 ([id number]) NURSE/OUTPATIENT VISIT EST Diagnosis: Urinary tract infection[ICD10: N39.0] Jayna VANESSA DO [facility] [address] [place] [address] CPT-4: 45006 09/11/2019 ([id number]) NURSE/OUTPATIENT VISIT EST Diagnosis: Urinary tract infection, site not specified[ICD10: N39.0] Jayna LOPEZNDER DO [facility] [address] [place] [address] CPT-4: 58270 09/08/2019 ([id number]) NURSE/OUTPATIENT VISIT EST Diagnosis: Urinary tract infection, site not specified[ICD10: N39.0] Jayna BRUCEER DO [facility] [address] [place] [address] CPT-4: 07712 09/07/2019 ([id number]) OFFICE/OUTPATIENT VISIT EST Diagnosis: Pelvic pain in female[ICD10: R10.2] Diagnosis: Urinary frequency[ICD10: R35.0] Genesis OLPEZNDER DO [facility] [address] [place] [address] CPT-4: 58817 09/02/2019 ([id number]) OFFICE/OUTPATIENT VISIT EST Diagnosis: Sinusitis[ICD10: J32.9] Genesis LOPEZND ER DO [address] [address] CPT-4: 90323 07/09/2019 ([id number]) OFFICE/OUTPATIENT VISIT EST Diagnosis: UTI (urinary tract infection)[ICD10: N39.0] Diagnosis: FLU VACCINE[ICD10: Z23] Genesis BRUCE ER DO [address] [address] CPT-4: 99909 04/15/2019 ([id number]) OFFICE/OUTPATIENT VISIT EST Diagnosis: Pain in right leg[ICD10: M79.604] Genesis BRUCEER DO [address] [address] CPT-4: 77990 04/07/2019 ([id number]) OFFICE/OUTPATIENT VISIT EST Diagnosis: Diverticulitis of large intestine without perforation or abscess without bleeding[ICD10: K57.32] Diagnosis: Cystitis[ICD10: N30.90] Jayna BRUCE ER DO [address] [address] CPT-4: 19624 03/25/2019 ([id number]) OFFICE/OUTPATIENT VISIT EST Diagnosis: Abdominal pain[ICD10: R10.9] Diagnosis: Cystitis[ICD10: N30.90] Jayna BRUCE ER DO [address] [address] CPT-4: 11912 03/18/2019 ([id number]) OFFICE/OUTPATIENT VISIT EST Diagnosis: Diverticulitis of large intestine without perforation or abscess without bleeding[ICD10: K57.32] Diagnosis: Generalized abdominal pain[ICD10: R10.84] Diagnosis: Urinary tract infection, site not specified[ICD10: N39.0] [facility] [address] [place] [address] CPT-4: 31733 01/26/2019 ([id number]) OFFICE/OUTPATIENT VISIT EST Diagnosis: Mild intermittent asthma with (acute) exacerbation[ICD10: J45.21] Diagnosis: Allergic rhinitis due to pollen[ICD10: J30.1] Jayna VANESSA DO [address] [address] CPT- 4: 36364 01/08/2019 ([id number]) OFFICE/OUTPATIENT VISIT EST Diagnosis: Mild intermittent asthma with (acute) exacerbation[ICD10: J45.21] Diagnosis: URI, ACUTE[ICD10: J06.9] Diagnosis: Urinary tract infection, site not specified[ICD10: N39.0] Jayna VANESSA DO [address] [address] CPT-4: 84664 01/06/2019 ([id number]) OFFICE/OUTPATIENT VISIT EST Diagnosis: Benign paroxysmal vertigo, bilateral[ICD10: H81.13] Diagnosis: Migraine without aura, not intractable, without status migrainosus[ICD10: G43.009] Jayna VANESSA DO [address] [address] CPT-4: 50967 10/30/2018 ([id number]) OFFICE/OUTPATIENT VISIT EST Diagnosis: Acute bronchitis, unspecified[ICD10: J20.9] Diagnosis: Cough[ICD10: R05] Diagnosis: Other seasonal allergic rhinitis[ICD10: J30.2] Stacey VANESSA DO [address] [address] CPT- 4: 01282 10/07/2018 ([id number]) OFFICE/OUTPATIENT VISIT EST Diagnosis: Pain in unspecified joint[ICD10: M25.50] Diagnosis: Pain in right ankle and joints of right foot[ICD10: M25.571] Diagnosis: Other specified disorders of bone density and structure, unspecified site[ICD10: M85.80] Jayna VANESSA DO [address] [address] CPT-4: 56536 06/23/2018 ([id number]) OFFICE/OUTPATIENT VISIT EST Diagnosis: Hypothyroidism, unspecified[ICD10: E03.9] Diagnosis: Mixed hyperlipidemia[ICD10: E78.2] Jayna ALVARENGA SPaige LOPEZNDER DO [address] [address] CPT-4: 99919 01/16/2018 ([id number]) OFFICE/OUTPATIENT VISIT EST Diagnosis: Cervicalgia[ICD10: M54.2] Genesis MORILLOLINE Daniel LOPEZ NDEDeejay DO [address] [address] CPT-4: 46485 10/16/2017 ([id number]) OFFICE/OUTPATIENT VISIT EST Diagnosis: Headache[ICD10: R51] Diagnosis: Dizziness and giddiness[ICD10: R42] Jayna KENNEY SPaige LOPEZNDER DO [address] [address] CPT-4: 61509 09/12/2017 OFFICE/OUTPATIENT VISIT EST Diagnosis: Cough[ICD10: R05] Genesis MORILLOLINE Daniel LOPEZNDER DO [facility] [address] [place] [address] CPT-4: 79994 08/20/2017 ([id number]) OFFICE/OUTPATIENT VISIT EST Diagnosis: COUGH[ICD10: R05] Jayna GUTIERREZ TracyPaige JESSICANDER DO [address] [address] CPT-4: 92011 08/13/19 18 ([id number]) OFFICE/OUTPATIENT VISIT EST Diagnosis: Acute bronchospasm[ICD10: J98.01] Jayna Thomas SPaige LOPEZNDER DO [address] [address] CPT-4: 57370 07/29/2017 OFFICE/OUTPATIENT VISIT EST Diagnosis: Influenza due to identified novel influenza A virus with other respiratory manifestations[ICD10: J09.X2] Genesis MORILLOLINE Tracy LOPEZNDER DO [address] [address] CPT-4: 89165 07/25/2017 ([id number]) OFFICE/OUTPATIENT VISIT EST Diagnosis: Pain in unspecified joint[ICD10: M25.50] Jayna VANESSA DO [address] [address] CPT- 4: 95954 06/10/2017 OFFICE/OUTPATIENT VISIT EST Diagnosis: Acute bronchitis, unspecified[ICD10: J20.9] Genesis VANESSA DO [address] [address] CPT- 4: 95407 05/28/2017 ([id number]) OFFICE/OUTPATIENT VISIT EST Diagnosis: Hypothyroidism, unspecified[ICD10: E03.9] Diagnosis: Mixed hyperlipidemia[ICD10: E78.2] Diagnosis: Kfusr-5-glfmbtcnxic 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] Diagnosis: Sebaceous cyst[ICD10: L72.3] Jayna MORILLOLINE Daniel VANESSA DO [address] [address] CPT-4: 19269 11/28/2016 ([id number]) OFFICE/OUTPATIENT VISIT EST Diagnosis: Right upper quadrant pain[ICD10: R10.11] Diagnosis: Epigastric pain[ICD10: R10.13] Jayna MORILLOLINE Tracy VANESSA DO [address] [address] CPT-4: 57335 06/05/2016 ([id number]) OFFICE/OUTPATIENT VISIT EST Diagnosis: FLU VACCINE[ICD10: Z23] Jayna MORILLOLINE Daniel JIANG [address] [address] CPT-4: 19343 05/01/2016 OFFICE/OUTPATIENT VISIT EST Diagnosis: Hypothyroidism, unspecified[ICD10: E03.9] Diagnosis: Type 1 diabetes mellitus without complications[ICD10: E10.9] Diagnosis: Mixed hyperlipidemia[ICD10: E78.2] Diagnosis: Essential (primary) hypertension[ICD10: I10] Diagnosis: Mixed incontinence[ICD10: N39.46] Jayna Vanessa IGLESIA Martha VANESSA DO [address] [address] CPT-4: 90723 11/08/2015 ([id number]) OFFICE/OUTPATIENT VISIT EST Diagnosis: Hypothyroidism, unspecified[ICD10: E03.9] Diagnosis: Other fatigue[ICD10: R53.83] Jayna VANESSA [facility] [address] [place] [address] CPT-4: 81129 07/19/2015 ([id number]) OFFICE/OUTPATIENT VISIT EST Diagnosis: Hypothyroidism, unspecified[ICD10: E03.9] Diagnosis: Mixed hyperlipidemia[ICD10: E78.2] Diagnosis: Metabolic syndrome[ICD10: E88.81] Diagnosis: Right lower quadrant abdominal tenderness[ICD10: R10.813] Diagnosis: FLU VACCINE[ICD10: Z23] Jayna JIANG [facility] [address] [place] [address] CPT-4: 79913 03/28/2015 ([id number]) OFFICE/OUTPATIENT VISIT EST Diagnosis: MALAISE AND FATIGUE[ICD9: 780.79] Diagnosis: DEPRESSIVE DISORDER NEC[ICD9: 311] Diagnosis: HYPOTHYROIDISM[ICD9: 244.9] Diagnosis: PNEUMOCOCCAL VACCINE[ICD10: Z23] Jayna VANESSA [facility] [address] [place] [address] CPT-4: 92993 02/08/2015 ([id number]) OFFICE/OUTPATIENT VISIT EST Diagnosis: MALAISE AND FATIGUE[ICD9: 780.79] Diagnosis: DEPRESSIVE DISORDER NEC[ICD9: 311] Diagnosis: HYPOTHYROIDISM[ICD9: 244.9] Diagnosis: ARTHRALGIA-MULTIPLE SITES[ICD9: 719.49] Jayna VANESSA [facility] [address] [place] [address] CPT-4: 01412 01/11/2015 ([id number]) OFFICE/OUTPATIENT VISIT EST 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] Diagnosis: - I - HYPOTHYROIDISM[ICD9: 244.9] Diagnosis: COUGH[ICD10: R05] Diagnosis: ALLERGIC RHINITIS[ICD9: 477.9] Diagnosis: Lumbar degenerative disc disease[ICD9: 722.52] Jaynaparam VANESSA [address] [address] CPT- 4: 56848 11/24/2014 ([id number]) OFFICE/OUTPATIENT VISIT EST Diagnosis: Allergic reaction[ICD9: 995.3] Galina HernandezLoco JAYNA VANESSA DO [address] [address] CPT-4: 36694 11/19/2014 ([id number]) OFFICE/OUTPATIENT VISIT EST Diagnosis: ALLERGIC RHINITIS[ICD9: 477.9] Diagnosis: WHEEZING[ICD9: 786.07] Diagnosis: URINARY TRACT INFECTION[ICD9: 599.0] Diagnosis: Right flank pain[ICD9: 789.09] Conchita VANESSA DO [address] [address] CPT-4: 62164 10/27/2014 ([id number]) OFFICE/OUTPATIENT VISIT EST Diagnosis: URINARY TRACT INFECTION[ICD9: 599.0] Diagnosis: Flank pain[ICD9: 789.09] Conchita CARTER [address] [address] CPT-4: 06622 09/23/2014 ([id number]) OFFICE/OUTPATIENT VISIT EST Diagnosis: HYPERTENSION[ICD9: 401.9] Diagnosis: - I - HYPOTHYROIDISM[ICD9: 244.9] Diagnosis: HYPERLIPIDEMIA NEC/NOS[ICD9: 272.4] Diagnosis: DYSMETABOLIC SYNDROME X[ICD9: 277.7] Jayna VANESSA [address] [address] CPT-4: 67091 07/28/2014 OFFICE/OUTPATIENT VISIT EST Diagnosis: HYPERTENSION[ICD9: 401.9] Diagnosis: GROSS HEMATURIA[ICD9: 599.71] Jayna VANESSA DO [address] [address] CPT-4: 03881 03/30/2014 ([id number]) OFFICE/OUTPATIENT VISIT EST 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 O RENDER DO [address] [address] CPT-4: 79924 08/25/2013 OFFICE/OUTPATIENT VISIT EST Diagnosis: DEPRESSIVE DISORDER NEC[ICD9: 311] Jayna ALVARENGA S. ORENDER DO [address] [address] CPT-4: 67925 06/29/2013 OFFICE/OUTPATIENT VISIT EST Diagnosis: DEPRESSIVE DISORDER NEC[ICD9: 311] Jayna ALVARENGA S. ORENDER DO [address] [address] CPT-4: 16963 05/26/2013 ([id number]) OFFICE/OUTPATIENT VISIT EST Diagnosis: BRONCHITIS, ACUTE[ICD9: 466.0] Diagnosis: HYPOTHYROIDISM[ICD9: 244.9] Diagnosis: HYPERLIPIDEMIA NEC/NOS[ICD9: 272.4] Diagnosis: Shoulder pain[ICD9: 719.41] Jayna GUTIERREZ S. O RENDER DO [address] [address] CPT-4: 97165 05/06/2013 ([id number]) OFFICE/OUTPATIENT VISIT EST Diagnosis: BRONCHITIS, ACUTE[ICD9: 466.0] Diagnosis: SINUSITIS, ACUTE[ICD9: 461.9] Jayna GUTIERREZ SPaige ORENDER DO [address] [address] CPT-4: 65852 04/23/2013 ([id number]) OFFICE/OUTPATIENT VISIT EST Diagnosis: DYSPNEA[ICD9: 786.09] Diagnosis: EDEMA[ICD9: 782.3] Diagnosis: VKOZO-5-TLGRNHIOVAQ DEFICIENCY[ICD9: 273.4] Diagnosis: COUGH[ICD9: 786.2] Jayna VANESSA DO [address] [address] CPT-4: 11005 03/31/20 13 OFFICE/OUTPATIENT VISIT EST Diagnosis: Chest pain[ICD9: 786.50] Diagnosis: ANXIETY STATE NOS[ICD9: 300.00] Conchita VANESSA DO [address] [address] CPT-4: 34702 03/05/2013 ([id number]) OFFICE/OUTPATIENT VISIT EST Diagnosis: HYPERLIPIDEMIA NEC/NOS[ICD9: 272.4] Diagnosis: HYPOTHYROIDISM[ICD9: 244.9] Diagnosis: Zspmd-9-zssxnekagrp deficiency[ICD9: 273.4] Diagnosis: ALLERGIC RHINITIS[ICD9: 477.9] Jayna VANESSA DO [address] [address] CPT-4: 41763 02/04/2013 ([id number]) OFFICE/OUTPATIENT VISIT EST Diagnosis: COUGH[ICD9: 786.2] Diagnosis: ALLERGIC RHINITIS[ICD9: 477.9] Jayna VANESSA DO [address] [address] CPT-4: 39588 11/27/2012 ([id number]) OFFICE/OUTPATIENT VISIT EST Diagnosis: COUGH[ICD9: 786.2] Diagnosis: DYSPNEA[ICD9: 786.09] Jyana VANESSA DO [address] [address] CPT-4: 56645 11/11/2012 ([id number]) OFFICE/OUTPATIENT VISIT EST Diagnosis: ABDOMINAL PAIN[ICD9: 789.00] Diagnosis: DIARRHEA[ICD9: 787.91] Diagnosis: COUGH[ICD9: 786.2] Jayna GUTIERREZ TracyPaige ANDIE DO [address] [address] CPT-4: 56463 10/21/19 13 OFFICE/OUTPATIENT VISIT EST Diagnosis: COUGH[ICD9: 786.2] Diagnosis: SINUSITIS, ACUTE[ICD9: 461.9] Diagnosis: PHARYNGITIS, ACUTE[ICD9: 462] Jayna GUTIERREZ TracyPaige JANISAPOLINAR DO [address] [address] CPT-4: 43491 09/03/2012 OFFICE/OUTPATIENT VISIT EST Diagnosis: ABDOMINAL PAIN[ICD9: 789.00] Diagnosis: Diarrhea[ICD9: 787.91] Jayna Villalba DO [address] [address] CPT-4: 37137 07/23/2012 ([id number]) OFFICE/OUTPATIENT VISIT EST Diagnosis: DM 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 TYPE II, UNCONTROLLED[ICD9: 250.02] Diagnosis: HYPERLIPIDEMIA NEC/NOS[ICD9: 272.4] Diagnosis: GERD[ICD9: 530.81] Jayna GUTIERREZ TracyPaige JESSICAMARIALUISA DO [address] [address] CPT-4: 69940 05/20/20 OFFICE/OUTPATIENT VISIT EST Diagnosis: DERMATITIS NOS[ICD9: 692.9] Galina PUCKETT DO [address] [address] CPT-4: 24530 04/04/2012 ([id number]) OFFICE/OUTPATIENT VISIT EST Diagnosis: HYPERLIPIDEMIA NEC/NOS[ICD9: 272.4] Diagnosis: HYPOTHYROIDISM[ICD9: 244.9] Diagnosis: DYSMETABOLIC SYNDROME X[ICD9: 277.7] Jayna Sanchez ANDIE [address] [address] CPT-4: 33556 01/02/2012 OFFICE/OUTPATIENT VISIT EST Diagnosis: COUGH[ICD9: 786.2] Diagnosis: SINUSITIS, ACUTE[ICD9: 461.9] Lizzie GUTIERREZ S. ORENDER DO [address] [address] CPT-4: 39832 09/04/2011 OFFICE/OUTPATIENT VISIT EST Diagnosis: Diverticulitis[ICD9: 562.11] Diagnosis: THROMBOPHLEBITIS[ICD9: 451.9] Jayna VANESSA DO [address] [address] CPT-4: 08351 08/14/2011 OFFICE/OUTPATIENT VISIT EST Diagnosis: COUGH[ICD9: 786.2] Jayna VANESSA DO [address] [address] CPT-4: 76144 07/25/19 12 OFFICE/OUTPATIENT VISIT EST Diagnosis: HYPOTHYROIDISM[ICD9: 244.9] Diagnosis: HYPERLIPIDEMIA NEC/NOS[ICD9: 272.4] Diagnosis: Total knee replacement status[ICD9: V43.65] Jayna VANESSA DO [address] [address] CPT- 4: 07501 07/12/2011 OFFICE/OUTPATIENT VISIT EST Diagnosis: BRONCHITIS, ACUTE[ICD9: 466.0] Diagnosis: COUGH[ICD9: 786.2] Jayna VANESSA DO [address] [address] CPT-4: 73703 05/09/20 11 OFFICE/OUTPATIENT VISIT EST Diagnosis: BRONCHITIS, ACUTE[ICD9: 466.0] Diagnosis: ASTHMA NOS[ICD9: 493.90] Diagnosis: Pleurisy[ICD9: 511.0] Jayna VANESSA DO [address] [address] CPT-4: 58744 05/02/2011 OFFICE/OUTPATIENT VISIT EST Diagnosis: COUGH[ICD9: 786.2] Jayna VANESSA DO [address] [address] CPT-4: 37173 11/02/20 11 OFFICE/OUTPATIENT VISIT EST Diagnosis: COUGH[ICD9: 786.2] Diagnosis: SINUSITIS, ACUTE[ICD9: 461.9] Jayna Jessicaleydaapolinar [facility] [address] [place] [phone] CPT-4: 50746 04/04/2011 OFFICE/OUTPATIENT VISIT EST Diagnosis: HYPOTHYROIDISM[ICD9: 244.9] Diagnosis: Knee osteoarthritis[ICD9: 715.96] Jaynaparam PAREKH [facility] [address] [place] [phone] CPT-4: 95555 03/01/2011 OFFICE/OUTPATIENT VISIT EST Jayna VILL[facility]REALQUELINE [facility] [address] [place] [phone] CPT-4: 77042 01/04/2011 ([id number]) OFFICE/OUTPATIENT VISIT EST Jayna Jessicamarialuisa VILLARREALKirill StonerELINE [facility] [address] [place] [phone] CPT-4: 08572 12/07/2010 ([id number]) OFFICE/OUTPATIENT VISIT EST Jayna Jessicaleydaapolinar PISANO [facility] [address] [place] [phone] CPT-4: 48744 10/09/2010 ([id number]) OFFICE/OUTPATIENT VISIT EST Jayna Jessicaleydaapolinar StonerELINE [facility] [address] [place] [phone] CPT-4: 88512 08/07/2010 ([id number]) OFFICE/OUTPATIENT VISIT, EST Jayna VILLARREAL MINPILAR [facility] [address] [place] [phone] CPT-4: 98488 06/06/2010 ([id number]) OFFICE/OUTPATIENT VISIT, EST Jayna [facility] [address] [place] [phone] CPT-4: 11941 03/20/2010 ([id number]) OFFICE/OUTPATIENT VISIT, EST Jayna [facility] [address] [place] [phone] CPT-4: 11556 01/30/2010 ([id number]) OFFICE/OUTPATIENT VISIT, EST Jayna VANESSA DO [employer] [address] [place] [phone] CPT-4: 17946 01/09/2010 ([id number]) OFFICE/OUTPATIENT VISIT, EST Jayna BRUCEER DO [address] [address] CPT-4: 84771 10/26/2009 ([id number]) OFFICE/OUTPATIENT VISIT, EST Lizzie BRUCEER DO [address] [address] CPT-4: 58186 10/18/19 10 ([id number]) OFFICE/OUTPATIENT VISIT, EST Jayna VANESSA DO [address] [address] CPT-4: 07157 10/04/2009 ([id number]) OFFICE/OUTPATIENT VISIT, EULOGIO VANESSA DO [employer] [address] [place] [phone] CPT-4: 77924 09/21/2009 Plan of Care Planned Activity Notes Codes Status Date Visit Diagnosis Plan: Cervicalgia Discussion: X-ray or dered. F/u with chiropractor as indicated. ICD-9 : 723.1 ICD-10 : M54.2 08/30/2022 Visit Diagnosis Plan: Degeneration of lumbar or lumbos acral intervertebral disc Discussion: X-ray ordered. F/u with chiropractor as indicated. Handicap placard renewal form filled out and given to patient. ICD-9 : 722.52 ICD-10 : M51.37 08/30/2022 Patient Education: Patient Medication Summary Completed 08/30/2022 Visit Diagnosis Plan: Discussion: Stable Labs disc ussed 08/07/2022 Visit Diagnosis Plan: Essential (primary) hypertension Discussion: Stable ICD-9 : 401.9 ICD-10 : I10 08/07/2022 Visit Diagnosis Plan: Discussion: Update lipids 08/07/2022 Visit Diagnosis Plan: Stress at home Discussion: With 's health ICD-9 : V61.9 ICD-10 : F43.9 08/07/2022 Appointment: Jayna Vanessa WPtel: [phone] [phone] US FOLLOW UP 08/07/2022 Visit Diagnosis Plan: [...] Appointment: Marlene Staples WPtel: [phone] [phone] ACUTE ILLNESS 06/29/2022 Patient Education: ciprofloxacin HCl- OptimizeRX Coupon [id number] Completed 06/29/2022 Visit Diagnosis Plan: Depression Discussion: Increase Wellbutrin XL to 300mg po qAM Fwup 2 mos ICD-9 : 311 ICD-10 : F32.A 05/28/2022 Visit Diagnosis Plan: Hypothyroidism Discussion: Labs discussed Decrease levothyroxine to 150mcg 6 days a week and repeat thyroid lab in 2mos ICD-9 : 244.9 ICD-10 : E03.9 05/28/2022 Appointment: Jayna Vanessa WPtel: [phone] [phone] US FOLLOW UP 05/28/2022 Visit Diagnosis [...] : R73.9 05/10/2022 Appointment: Jayna Vanessa WPtel: [address] [place], [place] [phone] US FOLLOW UP 05/10/2022 Visit Diagnosis Plan: Migraine, intractable Discussion : Toradol 30mg IM x1 given in clinic. Start Rizatriptan-- discussed on how to use and may repeat x1 dose 2 hours later. Restart propranolol for migraine prevention. Notify clinic if migraine not improving. ICD-9 : 346.91 ICD-10 : G43.919 04/18/2022 Appointment: Marlene Staples WPtel: [phone] [place] [phone] ACUTE ILLNESS 04/18/2022 Patient Education: propranolol- OptimizeRX Coupon [id number] Completed 04/18/2022 Appointment: Jayna Vanessa WPtel: [address] [place] [phone] US INJECTION 04/05/2022 Appointment: Jayna Vanessa WPtel: [address] [place], [place] [phone] US CANCELED 03/21/2022 Visit Diagnosis Plan: Acute [...] : J30.9 02/15/2022 Appointment: Jayna Vanessa WPtel: [address] [place], [place] [phone] US ACUTE ILLNESS 02/15/2022 Patient Education: prednisone- OptimizeRX Coupon [phone] https://www.Strevus.com/samplemd/resources/getResource/61/98s45dm9-o053-1v25-lg Completed 02/15/2022 Visit Diagnosis Plan: Hypothyroidism, unspecified Disc ussion: Stable ICD-9 : 244.9 ICD-10 : E03.9 02/06/2022 Visit Diagnosis Plan: Encounter for [facility] adult medical examination without abnormal [...] J44.9 02/06/2022 Appointment: Jayna Vanessa WPtel: [phone] [phone] Annual Well Visit 02/06/2022 Care Plan: Annual depression screening, 15 minutes 02/06/2022 Visit Diagnosis Plan: 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 Patient declines- will get stat CT of the head, cbc, cmp, and ESR and fwup with results [facility] sample given ICD-9 : 346.03 ICD-10 : G43.111 02/01/2022 Appointment: Latasha Anand WPtel: [phone] [phone] ACUTE ILLNESS 02/01/2022 Patient Education: Patient Medication [...] : R19.7 11/29/2021 Appointment: Jayna Vanessa WPtel: [address] [place], [place] [phone] FOLLOW UP 11/29/2021 Visit Diagnosis Plan: Diarrhea Discussion: C Diff nega tive Treat with diflucan and Restora-RX Fwup 1 week ICD-9 : 787.91 ICD-10 : R19.7 11/22/2021 Visit Diagnosis Plan: Post-viral cough syndrome Discus joaquín: Change albuterol to Breztri 2p BID Add singulair 10mg po q HS ICD-9 : 786.2 ICD-10 : R05.8 11/22/2021 Appointment: Jayna Vanessa WPtel: [phone] [phone] US ACUTE ILLNESS 11/22/2021 Patient Education: Singulair- OptimizeRX Jorge L [phone] https://www.Strevus.Ornis/samplemd/resources/getResource/61/[email or web address]-8025-1k Completed 11/22/2021 Visit Diagnosis Plan: Diarrhea of presumed infectious origin Discussion: Will check for c-diff due to recent antibiotics and foul smelling diarrhea ICD-9 : 009.3 ICD-10 : R19.7 11/21/2021 Visit Diagnosis Plan: History of recent pneumonia Disc ussion: Check cbc, cmp, ESR, and cxr now ICD-9 : V12.61 ICD-10 : Z87.01 11/21/2021 Appointment: Latasha Anand WPtel: [phone] [phone] ACUTE ILLNESS 11/21/2021 Patient Education: Patient Medication Summary Completed 11/21/2021 Visit Diagnosis Plan: Pneumonia Discussion: Finish all abx and continue albuterol Fwup next week ICD-9 : 486 ICD-10 : J18.9 11/09/2021 Visit Diagnosis Plan: Serous otitis media Discussion: Kenalog 40mg with Dexamethasone 2mg IM now ICD-9 : 381.4 ICD-10 : H65.90 11/09/2021 Appointment: Jayna Vanessatel: [address] [place], [place] [address] Hospital Follow Up 11/09/2021 Visit Diagnosis Plan: Pneumonia Discussion: Admit to h ospital ICD-9 : 486 ICD-10 : J18.9 10/31/2021 Appointment: Jayna Vanessatel: [address] [place], [place] [phone] FOLLOW UP 10/31/2021 Visit Diagnosis Plan: Nausea [...] to us e prn 10/30/2021 Appointment: Jayna Vanessatel: [phone] ACUTE ILLNESS 10/30/2021 Visit Diagnosis Plan: Cervicalgia Discussion: Had x-ra ys done Kenalog 40mg IM now Baclofen prn Mobic for 1 week Topical muscle rube Moist heat and stretches shown Has PT sessions scheduled next week so will add in therapy for neck ICD-9 : 723.1 ICD-10 : M54.2 09/05/2021 Appointment: Jayna Vanessatel: [phone] [phone] ACUTE ILLNESS 09/05/2021 Visit Diagnosis Plan: [...] 08/24/2021 Appointment: Latasha Anand WPtel: [phone] [phone] ACUTE ILLNESS 08/24/2021 Patient Education: Patient Medication Summary Completed 08/24/2021 Patient Education: prednisone- OptimizeRX Coupon [id number] Completed 08/24/2021 Visit Plan: Supportive care. Rest, [...] : J06.9 07/04/2021 Appointment: [facility] [address] [facility] [facility] 07/04/2021 Patient Education: Patient Medication Summary Completed 07/04/2021 Patient Education: Patient Medication Summary Completed 07/04/2021 Appointment: Latasha Anand WPtel: [phone] [phone] US NO SHOW 07/03/2021 Appointment: Latasha Anand WPtel: [phone] [phone] patients issue resolved so moved to 's schedule for his hospital fwup (km) CANCELED 03/29/2021 Appointment: Jayna Vanessa WPtel: [phone] [phone] US INJECTION 03/29/2021 Visit Diagnosis Plan: Vasovagal episode Discussion: Mo nitored in office. Stable, feeling better- sent to [facility] for 1L NS IV, cbc, and cmp. ICD-9 : 780.2 ICD-10 : R55 03/01/2021 Patient Education: Patient Medication Summary Completed 03/01/2021 Visit Diagnosis Plan: Sebaceous cyst of right axilla D iscussion: Pustule/cyst drained- see note. F/U for concerns. ICD-9 : 706.2 ICD-10 : L72.3 02/08/2021 Appointment: Latasha Anand WPtel: [phone] [phone] ACUTE ILLNESS 02/08/2021 Patient Education: Patient Medication Summary Completed 02/08/2021 Visit Diagnosis Plan: Contact dermatitis Discussion: T opical TAC and prednisone Notify if persists or worsens ICD-9 : 692.9 ICD-10 : L25.9 01/19/2021 Appointment: Jayna Vanessa WPtel: [phone] [phone] ACUTE ILLNESS 01/19/2021 Patient Education: prednisone- OptimizeRX Coupon [id number] Completed 01/19/2021 Patient Education: triamcinolone acetonide- OptimizeRX Coupon 16 [id number] Completed 01/19/2021 Visit Diagnosis Plan: Hypothyroidism, unspecified Disc ussion: Increase levothyroxine to 150mcg po daily and recheck TSH and free T4 in 2mos ICD-9 : 244.9 ICD-10 : E03.9 01/03/2021 Visit Diagnosis Plan: Essential (primary) hypertension Discussion: Stable ICD-9 : 401.9 ICD-10 : I10 01/03/2021 Visit Diagnosis Plan: Encounter for [facility] adult medical examination without abnormal findings Discussion: Mediterranean diet Combinati on of cardio and weight bearing exercise Had Covid vaccines Lab discussed ICD-9 : V70.9 ICD-10 : Z00.00 01/03/2021 Visit Diagnosis Plan: Chronic obstructive pulmonary di sease, unspecified Discussion: Following with pulmonology ICD-9 : 496 ICD-10 : J44.9 01/03/2021 Appointment: [facility]Ptel[facility] [phone] [facility] Well Visit 01/03/2021 Patient Education: levothyroxine- OptimizeRX Coupon [id number] https://www.ProBinder/samplemd/resources/getResource/61/1b025zx0-7cp8-2864-d2 Completed 01/03/2021 Visit Diagnosis Plan: COPD exacerbation Discussion: Sa jorge a given. Prednisone 40 mg x 5 days for exacerbation- increased cough, shortness of breath, and phlegm. Promethazine DM cough syrup sent d/t frequent hacking cough that interrupts sleep. F/U for no improvement or any concerns. ICD-9 : 491.21 ICD-10 : J44.1 11/29/2020 Appointment: Latasha Anand WPtel[facility] [phone] [facility] [facility] 11/29/2020 Patient Education: Patient Medication Summary Completed 11/29/2020 Patient Education: prednisone- OptimizeRX Coupon [id number] Completed 11/29/2020 Patient Education: promethazine-DM- OptimizeRX Coupon [id number] Completed 11/29/2020 Visit Diagnosis Plan: Sinusitis Discussion: Will start doxycycline (pcn allergy). Sinus rinses. Tylenol/nsaids for headache/pain. Return to clinicif not improving/concerns. ICD-9 : 473.9 ICD-10 : J32.9 09/29/2020 Appointment: Latasha Anand WPtel: [phone] [phone] ACUTE ILLNESS 09/29/2020 Patient Education: Patient Medication Summary Completed 09/29/2020 Patient Education: doxycycline hyclate- OptimizeRX Coupon [id number] Completed 09/29/2020 Visit Diagnosis Plan: Other [...] J42 09/19/2020 Appointment: Latasha Anand WPtel: [phone] [phone] ACUTE ILLNESS 09/19/2020 Patient Education: Patient Medication Summary Completed 09/19/2020 Patient Education: ProAir HFA- OptimizeRX Coupon [id number] Completed 09/19/2020 Visit Diagnosis Plan: Right-sided tinnitus [...] H93.11 08/10/2020 Appointment: Jayna Vanessa WPtel: [address] [phone] FOLLOW UP 08/10/2020 Patient Education: neomycin-polymyxin B-dexameth- Opti mizeRX Coupon [id number] https://www.Strevus.Ornis/samplemd/resources/getResource/61/ck579d18-l39f-1k94-ki Completed 08/10/2020 Visit Diagnosis Plan: Dysfunction of right eustachian tube Discussion: Naylay.ak video visit done Increase zyrtec to BID Increase flonase to BID Add prednisone To office at end of week to assess otoscope exam if persists ICD-9 : 381.81 ICD-10 : H69.81 08/01/2020 Appointment: Jayna Vanessa WPtel: [phone] [phone] TELEMEDICINE 08/01/2020 Patient Education: prednisone- OptimizeRX Coupon [id number] https://www.ProBinder/samplemd/resources/getResource/61/oo7x02k6-7217-5g6y-94 Completed 08/01/2020 Visit Diagnosis Plan: Pyelonephritis Discussion: Hilary daniel all abx Push fluids Check lab and repeat UA in 5 days--CBC, CMP, ESR ICD-9 : 590.80 ICD-10 : N12 07/13/2020 Appointment: Jayna Vanessa WPtel: [facility] [place] [phone] Hospital Follow Up 07/13/2020 Visit Diagnosis Plan: Acute gastroenteritis Discussion : Telephone visit completed Clear liquid diet next 24-48hrs Flagyl to cover for colitis/diverticulitis Zofran prn Notify or to ER if worsening ICD-9 : 558.9 ICD-10 : K52.9 07/05/2020 Appointment: Jayna Vanessa WPtel: [phone] TELEMEDICINE 07/05/2020 Patient Education: ondansetron HCl- OptimizeRX Coupon [id number] https://www.Strevus.Ornis/sampleQoture/resources/getResource/61/w7e53zg8-5t2r-393y-1o Completed 07/05/2020 Visit Diagnosis Plan: Metabolic syndrome Discussion: U pdate CMP, HBa1c ICD-9 : 277.7 ICD-10 : E88.81 06/22/2020 Visit Diagnosis Plan: Idznj-7-dmgkddomofh deficiency D iscussion: Following with pulmonology ICD-9 [...] : I10 06/22/2020 Appointment: Jayna Vanessa WPtel: [phone] FOLLOW UP 06/22/2020 Visit Diagnosis Plan: Urinary tract infection Discussi on: Macrobid Diflucan Push water Notify if worsens ICD-9 : 599.0 ICD-10 : N39.0 05/17/2020 Appointment: Jayna Vanessatel: [phone] ACUTE ILLNESS 05/17/2020 Patient Education: fluconazole- OptimizeRX Coupon [phone] https://www.Strevus.com/samplemd/resources/getResource/61/5c2nk4kq-l8e0-1v7z-9v Completed 05/17/2020 Visit Diagnosis Plan: Right pulmonary embolus Discussi on: Continue eliquis at 5mg po BID Has appointments pending with pulmonology and hematology Fwup after visits with both of these specialists ICD-9 : 415.19 ICD-10 : I26.99 03/14/2020 Appointment: Jayna Vanessa WPtel: [phone] US LM 03/14/20 on cell -- home phone had busy signal Hospital Follow Up 03/14/2020 Appointment: Jayna Vanessa WPtel: [phone] I schedule patient by mistake ddo Scheduled [...] R06.00 03/07/2020 Appointment: Jayna Vanessa WPtel: [address] [phone] ACUTE ILLNESS 03/07/2020 Care Plan: CT THORAX W/DYE LOINC : 57087 -6 Pending 03/07/2020 Appointment: Jayna Vanessa WPtel: [address] [phone] NO SHOW - FORGIVEN 03/02/2020 Visit Diagnosis Plan: Upper respiratory infection Disc ussion: patient's covid test was neg from several weeks ago. proair refilled to take as needed. medrol pack prescribed to cover for allergies since her symptoms began after being in [facility]. however, instructed patient that she needs to be checked again for coronavirus due to severity of her symptoms. [place] so informed her to go to [facility] for testing. call ofice with new or worsening symptoms, otherwise push fluids. ICD-9 : 465.9 ICD-10 : J06.9 02/11/2020 Appointment: Genesis Fernández [address] [place] [address] TELEMEDICINE 02/11/2020 Patient Education: ProAir HFA- OptimizeRX Coupon [id number] Completed 02/11/2020 Patient Education: Medrol (Isaiah)- OptimizeRX Coupon [id number] Completed 02/11/2020 Visit Diagnosis Plan: Hypothyroidism, unspecified [...] I10 12/21/2019 Visit Diagnosis Plan: Encounter for [facility] adult medical examination without abnormal findings Discussion: Mediterranean diet Combinati on of cardio and weight bearing exercise Lab discussed Last colonoscopy 3 years ago ICD-9 : V70.9 ICD-10 : Z00.00 12/21/2019 Appointment: Jayna Vanessatel: [facility] [phone] Annual Well Visit 12/21/2019 Care Plan: Referral Order SNOMED-CT : 30 [id number] Pending 12/21/2019 Visit Diagnosis Plan: Dermatitis Discussion: Doxy.me v ideo visit done Cover with Prednisone taper Use Zyrtec 10mg po q AM BID ICD-9 : 692.9 ICD-10 : L30.9 09/29/2019 Appointment: Jayna Vanessatel: [address] [phone] TELEMEDICINE 09/29/2019 Patient Education: prednisone- OptimizeRX Coupon [id number] https://www.Strevus.com/samplemd/resources/getResource/61/35i61g30-2m94-4d58-7s Completed 09/29/2019 Visit Diagnosis Plan: Bone spur [...] : N39.0 09/14/2019 Appointment: Jayna Vanessa WPtel: [address] [place], [place] [phone] TELEMEDICINE 09/14/2019 Appointment: Jayna Vanessa WPtel: [address] [place], [place] [phone] US LAB 09/11/2019 Appointment: Jayna Vanessa WPtel: [address] [place], [place] [phone] 09/09/2019 1210--per Joey patient was to only have 1 injection, reculture urine on 09/11/19 (km) CANCELED 09/09/2019 Appointment: Jayna Vanessa WPtel: [address] [place], [place] [phone] INJECTION 09/08/2019 Appointment: Jayna Vanessa WPtel: [address] [place], [place] [phone] US INJECTION 09/07/2019 Visit Diagnosis Plan: Urinary [...] : R35.0 09/02/2019 Appointment: Genesis Fernández [address] [place] [address] ACUTE ILLNESS 09/02/2019 Visit Diagnosis Plan: Sinusitis Discussion: instructed to start flonase daily and zyrtec daily. if no improvement next week, call clinic and may need further directions. instructed to use saline eye drops as needed to eyes to assist with dryness. ICD-9 : 473.9 ICD-10 : J32.9 07/09/2019 Appointment: Genesis Fernández [address] [place] [address] ACUTE ILLNESS 07/09/2019 Visit Diagnosis Plan: UTI (urinary tract infection) Di scussion: urine culture sent off. will start on macrobid due to symptoms. instructed to push fluids and chemo tomorrow with worsening symptoms. ICD-9 : 599.0 ICD-10 : N39.0 04/15/2019 Appointment: Jayna Vanessa WPtel: [phone] US INJECTION 04/15/2019 Appointment: Genesis Fernández [address] [place] [address] ACUTE ILLNESS 04/15/2019 Visit Diagnosis Plan: Pain in right leg Discussion: ke nalog/dexa given in office. continue with flexeril prn. PT was ordered for patient due to chronic issues. call office with worsening symptoms and may need imaging. ICD-9 : 729.5 ICD-10 : M79.604 04/07/2019 Appointment: Genesis Fernández [address] [place] [address] ACUTE ILLNESS 04/07/2019 Visit Diagnosis Plan: Diverticulitis of large intestine without perforation or abscess without bleeding Discussion: Patient will call when she g ets home and verify which antibiotics she has left--needs at least another week on flagyl and thinks she only took 1 week on that ICD-9 : 562.11 ICD-10 : K57.32 03/25/2019 Appointment: Jayna Vanessa WPtel: [phone] FOLLOW UP 03/25/2019 Visit Diagnosis Plan: Cystitis Discussion: Bactrim and culture urine ICD-9 : 595.9 ICD-10 : N30.90 03/18/2019 Visit Diagnosis Plan: Abdominal pain Discussion: Cover with flagyl for colitis Linn diet To ER this weekend if worsening Fwup 1 week ICD-9 : 789.00 ICD-10 : R10.9 03/18/2019 Appointment: Jayna Vanessa WPtel: [address] [phone] ACUTE ILLNESS 03/18/2019 Visit Diagnosis Plan: [...] ICD-10 : R10.84 01/26/2019 Appointment: Genesis Fernández [address] [place] [address] ACUTE ILLNESS 01/26/2019 Appointment: Jayna Vanessa WPtel: [facility] [place] [phone] CANCELED 01/12/2019 Visit Diagnosis Plan: Mild intermittent asthma with (a cute) exacerbation Discussion: Kenalog 40mg IM now Prednisone stating tomorrow Start Doxycycline tonight Continue SVNs with duoneb q4hrs To ER this weekend if worsening Call Saturday on how doing ICD-9 : 466.0 ICD-10 : J45.21 01/08/2019 Appointment: Jayna Vanessa WPtel: [address] [place], [place] [phone] FOLLOW UP 01/08/2019 Patient Education: prednisone- OptimizeRX Coupon [phone] https://www.ProBinder/Strevus/resources/getResource/61/00184123-[email or web address]-2453-13 Completed 01/08/2019 Visit Diagnosis Plan: Mild intermittent asthma with (a cute) exacerbation Discussion: Solumedrol 125mg IM SVN with duoneb given Continue albuterol q4hrs CXR now Recheck tomorrow ICD-9 : 466.0 ICD-10 : J45.21 01/06/2019 Appointment: Jayna Vanessa WPtel: [facility] [place] [phone] ACUTE ILLNESS 01/06/2019 Visit Diagnosis Plan: Encounter for screening for roel gnant neoplasm of colon Discussion: positive for ob. will order ct abd/pelvis due to other findings and discussed with patient that may need to proceed with updated colonoscopy. patient verbalized understanding. ICD-9 : V76.51 ICD-10 : Z12.11 12/11/2018 Visit Diagnosis Plan: Encounter for [facility] adult medical examination with abnormal findings Discussion: [...] ICD-10 : N76.0 12/11/2018 Appointment: Genesis Fernández [address] [place], [place] [address] Annual Well Visit 12/11/2018 Care Plan: RML ASSAY THYROID STIM HORMONE Pending 12/04/2018 Care Plan: RML ASSAY OF FREE THYROXINE Pe nding 12/04/2018 Care Plan: RML A1C HPLC LOINC : 73364-5 Pending 12/04/2018 Care Plan: RML LIPID PANEL LOINC : 24608 -1 Pending 12/04/2018 Care Plan: RML COMPREHEN METABOLIC PANEL LOINC : 93229-1 Pending 12/04/2018 Care Plan: QUEST CBC (INCLUDES DIFF/PLT) LOINC : 71186-3 Pending 12/04/2018 Visit Diagnosis Plan: Benign paroxysmal vertigo, bilat eral Discussion: Meclizine Vestibular Exercises To ER if worsens or develops neurological symptoms or will need CT scan if persists/worsens ICD-9 : 386.11 ICD-10 : H81.13 10/30/2018 Appointment: Jayna Vanessa WPtel: [address] [phone] ACUTE ILLNESS 10/30/2018 Patient Education: VESTIBULAR EXCERCISES Completed 10/30/2018 Patient Education: meclizine- OptimizeRX Coupon [id number] Completed 10/30/2018 Appointment: Jayna Vanessa WPtel: [address] [phone] US canceled due to huband going [...] ICD-10 : R05 10/07/2018 Appointment: Stacey Feng [facility] AC[facility] ILLNESS 10/07/2018 Patient Education: doxycycline hyclate- OptimizeRX Cou jerald [id number] https://www.Strevus.com/samplemd/resources/getResource/61/j984mci0-h567-945a-45 Completed 10/07/2018 Care Plan: RML ASSAY OF [...] : M85.80 06/23/2018 Appointment: Jayna Vanessa WPtel: [address] [place], [place] [phone] US FOLLOW UP 06/23/2018 Appointment: Jayna Vanessa WPtel: [address] [place], [place] [phone] ER Follow UP 01/27/2018 Visit Diagnosis Plan: Hypothyroidism, unspecified Disc ussion: Lab discussed Increase Levothyroxine to 175mcg daily then recheck level in 6 weeks Follow Up: 6 weeks ICD-9 : 244.9 ICD-10 : E03.9 01/16/2018 Visit Diagnosis Plan: Mixed hyperlipidemia Discussion: Defers statin meds ICD-9 : 272.4 ICD-10 : E78.2 01/16/2018 Appointment: Jayna Vanessa WPtel: [address] [place], [place] [address] US FOLLOW UP 01/16/2018 Patient Education: Patient Medication Summary Completed 01/16/2018 Patient Education: Patient Medication Summary Completed 01/15/2018 Care Plan: RML COMPREHEN METABOLIC PANEL LOINC : 19010-1 Pending 01/15/2018 Care Plan: RML ASSAY THYROID STIM HORMONE Pending 01/15/2018 Care Plan: RML ASSAY OF FREE THYROXINE Pe nding 01/15/2018 Care Plan: RML LIPID PANEL LOINC : 86912 -1 Pending 01/15/2018 Care Plan: CBC Pending 01/15/2018 Care Plan: RML A1C HPLC LOINC : 85762-8 Pending 01/15/2018 Appointment: Jayna Vanessa WPtel: [address] [place] [phone] US CANCELED 12/26/2017 Appointment: Jayna Vanessa WPtel: [address] [place] [phone] US CANCELED 10/28/2017 Visit Diagnosis Plan: Cervicalgia Discussion: xray ord ered of cervical spine and right shoulder. 40 mg kenalog/15 mg toradol prescribed to assist with pain. medrol dose pack prescribed to start tomorrow. instructed patient that if she d evelops worsening pain or no improvement, call or rtc. ICD-9 : 723.1 ICD-10 : M54.2 10/16/2017 Appointment: Genesis Fernández [address] [place] [phone] ACUTE ILLNESS 10/16/2017 Patient Education: Patient Medication Summary Completed 10/16/2017 Care Plan: X-RAY EXAM NECK SPINE 4/5VWS cervical LOINC : 34064-0 Pending 10/16/2017 Visit Diagnosis Plan: Headache Discussion: Stat CT of head Dilated eye exam ICD-9 : 784.0 ICD-10 : R51 09/12/2017 Visit Diagnosis Plan: Dizziness and giddiness Discussi on: Check CBC,TSH, Free T4 now ICD-9 : 780.4 ICD-10 : R42 09/12/2017 Appointment: Jayna Vanessa WPtel: [address] [phone] ACUTE ILLNESS 09/12/2017 Patient Education: Patient Medication Summary Completed 09/12/2017 Care Plan: CT HEAD/BRAIN W/O DYE LOINC : 02490-8 Pending 09/12/2017 Visit Diagnosis Plan: Cough Discussion: discussed cxra y and sputum results with patient and how they are negative for bacteria. patient restarted on her PPI to cover possiblity of GERD causing cough. instructed patient to contact her portable trackman in [place] for them to evaluate. rtc with any new or worsening symptoms but continue with inhaler and nebulizer treatments as needed. ICD-9 : 786.2 ICD-10 : R05 08/20/2017 Appointment: Genesis Fernández [address] [facility] FOLLOW UP 08/20/2017 Patient Education: Patient Medication Summary Completed 08/20/2017 Visit Diagnosis Plan: COUGH Discussion: Check stat CXR Check Sputum culture ICD-9 : 786.2 ICD-10 : R05 08/13/2017 Appointment: Jayna Vanessa WPtel: [phone] [phone] ACUTE ILLNESS 08/13/2017 Patient Education: Patient [...] Rest, Fluids... 07/29/2017 Appointment: Jayna Vanessa WPtel: [address] [place], [place] [phone] ACUTE ILLNESS 07/29/2017 Patient Education: Patient Medication [...] ICD-10 : J09.X2 07/25/2017 Appointment: Genesis Fernández [address] [place] [address] ACUTE ILLNESS 07/25/2017 Patient Education: Patient Medication [...] : M25.50 06/10/2017 Appointment: Jayna Vanessa WPtel: [address] [place], [place] [phone] ACUTE ILLNESS 06/10/2017 Patient Education: Patient Medication Summary Completed 06/10/2017 Appointment: Jayna Vanessa WPtel: [address] [place], [place] [phone] Does not need appointment CANCELED 2016 Appointment: Jayna Vanessa WPtel: [phone] [phone] US CANCELED 05/30/2017 Visit Diagnosis Plan: Acute bronchitis, unspecified Di scussion: prednisone, zpack and tessalon perles prescribed to assist with symptoms. call or RTC if no improvement. humidifier at night. hydrate well and rest. discussed side effects from prednisone including increased blood sugars and instructed to monitor. ICD-9 : 490 ICD-10 : J20.9 05/28/2017 Appointment: Genesis Fernández [address] [facility] ACUTE ILLNESS 05/28/2017 Patient Education: Patient Medication Summary Completed 05/28/2017 Visit Diagnosis Plan: Type 2 diabetes mellitus without complications Discussion: Continue current meds accuchecks daily ICD-9 : 250.00 ICD-10 : E11.9 04/04/2017 Visit Diagnosis Plan: Encounter for [facility] adult medical examination without abnormal findings Discussion: Flu and Pneumovax given Mamm ogram ordered Lab discussed ICD-9 : V70.9 ICD-10 : Z00.00 04/04/2017 Appointment: Jayna Vanessa WPtel: [phone] [phone] Annual Well Visit 04/04/2017 Patient Education: Patient Medication Summary Completed 04/04/2017 Care Plan: MAMMOGRAM SCREENING LOINC : 2 6347-5 Pending 04/04/2017 Patient Education: Patient Medication Summary Completed 03/21/2017 Care Plan: RML COMPREHEN METABOLIC PANEL LOINC : 08790-8 Pending 03/21/2017 Care Plan: RML ASSAY THYROID STIM HORMONE Pending 03/21/2017 Care Plan: RML ASSAY OF FREE THYROXINE Pe nding 03/21/2017 Care Plan: CBC Pending 03/21/2017 Care Plan: RML A1C HPLC LOINC : 52385-0 Pending 03/21/2017 Visit Diagnosis Plan: Mixed hyperlipidemia Discussion: Continue current meds Follow Up: 6 months ICD-9 : 272.4 ICD-10 : E78.2 11/28/2016 Visit Diagnosis Plan: Hypothyroidism, unspecified Disc ussion: Continue current dose ICD-9 : 244.9 ICD-10 : E03.9 11/28/2016 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: Continue weekly injections ICD-9 : 273.4 ICD-10 : E88.01 11/28/2016 Visit Diagnosis Plan: Sebaceous cyst Discussion: Emily swann Discussed removal ICD-9 : 706.2 ICD-10 : L72.3 11/28/2016 Appointment: Jayna Vanessa WPtel: [phone] [phone] / rang and rang on home phone and mobile confirmed~sl FOLLOW UP 11/28/2016 Patient Education: Patient Medication Summary Completed 11/28/2016 Patient Education: Patient Medication Summary Completed 11/20/2016 Referral: Tom Mcrae WPtel: [address] [facility] [address] [address] [id number] [place] Referral Initiated 07/05/2016 Visit Plan: Start with CT abdomen/pelvis Will need EGD and Colonoscopy so will refer to Dr. Pina Obtain most recent lab results 06/05/2016 Appointment: [phone] [phone] [facility] 06/05/2016 Patient Education: Patient Medication Summary Completed 06/05/2016 Care Plan: CT PELVIS W/O DYE LOINC : 361 08-9 Pending 06/05/2016 Care Plan: CT ABDOMEN W/O DYE LOINC : 36 103-0 Pending 06/05/2016 Care Plan: Referral Order SNOMED-CT : [id number] Pending 06/05/2016 Appointment: Jay[facility] Van[facility]Ptel[phone] [phone] [facility] INJECTION 05/01/2016 Patient Education: Patient Medication Summary Completed 05/01/2016 Patient Education: Patient Medication Summary Completed 04/26/2016 Care Plan: RML COMPREHEN METABOLIC PANEL LOINC : 76458-2 Pending 04/26/2016 Care Plan: RML ASSAY THYROID STIM HORMONE Pending 04/26/2016 Care Plan: RML ASSAY OF FREE THYROXINE Pe nding 04/26/2016 Care Plan: RML A1C HPLC LOINC : 40207-5 Pending 04/26/2016 Referral: Aditya Stone WPtel: [address] [place] [address] Drive [address] [id number] Arrival time is 10:00 Am~sl Appointment Confirme d 11/25/2015 Visit Plan: Had fasting lab done this AM Continue PT for right shoulder Continue current meds Referral to Dr. Temo Stone for incontinence 11/08/2015 Appointment: Jayna Vanessa WPtel: [phone] [phone] 11/06 confirmed-sp FOLLOW UP 11/08/2015 Patient Education: Patient Medication Summary Completed 11/08/2015 Appointment: Jayna Vanessa WPtel: [phone] [phone] 10/19 rescheduled ~sl RESCHEDULED 10/24/2015 Appointment: Jayna Vanessa WPtel: [phone] [phone] US 10/10rang and rang ~sl RESCHEDULED 6 Patient Education: Patient Medication Summary Completed 10/12/2015 Care Plan: RML COMPREHEN METABOLIC PANEL LOINC : 31306-6 Pending 10/12/2015 Care Plan: RML ASSAY THYROID STIM HORMONE Pending 10/12/2015 Care Plan: RML ASSAY OF FREE THYROXINE Pe nding 10/12/2015 Care Plan: RML LIPID PANEL LOINC : 04684 -1 Pending 10/12/2015 Care Plan: CBC Pending 10/12/2015 Care Plan: RML A1C HPLC LOINC : 77695-8 Pending 10/12/2015 Care Plan: VITAMIN D TOTAL (25 HYDROXY) P ending 10/12/2015 Appointment: Jayna Van[facility] WPtel[phone] [phone] US CANCELED 09/22/2015 Visit Plan: Lab discussed Change thyroid med back to brand synthroid and recheck thyroid lab in 3mos 07/19/2015 Appointment: Jayna Vanessa WPtel: [phone] [phone] 07/18/15 appt confirmed cn FOLLOW UP 07/19 Patient Education: Patient Medication Summary Completed 07/19/2015 Patient Education: Patient Medication Summary Completed 07/12/2015 Visit Plan: Lab discussed Change synthro id to 150mcg all days but M, W, F will change to 175mcg Check Lab and fwup in 3mos Flu shot given 03/28/2015 Appointment: Jayna Vanessa WPtel: [phone] [phone] 03/25 rang for 1:40 seconds 03/28/ appt confirmed cn FOLLOW UP 03/28/2015 Patient Education: Patient Medication Summary Completed 03/28/2015 Patient Education: Patient Medication Summary Completed 03/21/2015 Visit Plan: Continuue fluoxetine at high er dose Increase synthroid to 150mcg as ordered Decrease propranolol to 20mg po BID Check thyroid lab and fwup in 2mos Prevnar 13 given 02/08/2015 Appointment: Jayna Vanessa WPtel: [phone] FOLLOW UP 02/08/2015 Patient Education: Patient Medication Summary Completed 02/08/2015 Visit Plan: Check CBC, CMP, TSH, Free T4 , uric acid, lactate now Increase fluoxetine to 40mg daily Recheck in 1month Notify if worsening Culture urine 01/11/2015 Appointment: Jayna Vanessa WPtel: [phone] [phone] ACUTE ILLNESS 01/11/2015 Patient Education: Patient Medication Summary Completed 01/11/2015 Visit Plan: Lab discussed Accuchecks lucian ly Medrol dose pack Rx for back brace 11/24/2014 Appointment: Jayna Vanessa WPtel: [phone] [phone] 11/23 confirmed -mf FOLLOW UP 11/24/2014 Patient Education: Patient Medication Summary Completed 11/24/2014 Appointment: Galina Leos WPtel: [address] [place], [place] [phone] ER Follow UP 11/19/2014 Patient Education: Patient Medication Summary Completed 11/19/2014 Appointment: Conchita Capone WPtel: [address] [place], [place] [phone] ACUTE ILLNESS 10/27/2014 Patient Education: Patient Medication Summary Completed 10/27/2014 Patient Education: [facility] - Saving AutoInj - 18+ - Dynamic Portal ID Completed 10/27/2014 Appointment: Conchita Capone WPtel: [address] [place], [place] [address] ACUTE ILLNESS 09/23/2014 Patient Education: Patient Medication Summary Completed 09/23/2014 Visit Plan: Lab discussed Continue curre nt meds 07/28/2014 Appointment: Jayna Vanessa WPtel: [address] [place], [place] [phone] 07/27 FOLLOW UP 07/28/2014 Patient Education: Patient Medication Summary Completed 07/28/2014 Patient Education: Patient Medication Summary Completed 07/21/2014 Patient Education: Patient Medication Summary Completed 04/27/2014 Appointment: Jayna Vanessa WPtel: [address] [place], [place] [phone] 03/29 FOLLOW UP 03/30/2014 Patient Education: Patient Medication Summary Completed 03/30/2014 Patient Education: [facility] - Saving AutoInj - 18+ - Dynamic Portal ID Completed 03/30/2014 Visit Plan: Lab discussed DC Vytorin Tri al of Lipitor 80mg q HS Continue Trilipix Check Lipids/CMP/thyroid and HbA1C in 4mos then fwup 11/24/2013 Appointment: Jayna Vanessa WPtel: [address] [place], [place] [phone] FOLLOW UP 11/24/2013 Patient Education: Patient Medication Summary Completed 11/24/2013 Patient Education: [facility] - Saving AutoInj - 18+ - Dynamic Portal ID Completed 11/24/2013 Visit Plan: Lab discussed Daily accuchec ks Cont current meds 08/25/2013 Appointment: Jayna Vanessa WPtel: [address] [place], [place] [phone] 08/24 FOLLOW UP 08/25/2013 Patient Education: Patient Medication Summary Completed 08/25/2013 Appointment: Jayna Vanessa WPtel: [address] [place], [place] [phone] FOLLOW UP 08/05/2013 Visit Plan: Continue Wellbutrin/Fluoxeti ne Fasting lab and fwup in 2mos 06/29/2013 Appointment: Jayna Vanessa WPtel: [address] [place], [place] [phone] 06/26 left [facility] FOLLOW UP 06/29/2013 Patient Education: Patient Medication Summary Completed 06/29/2013 Visit Plan: Increase Wellbutrin to 300mg daily Add fluoxetine 20mg daily 05/26/2013 Appointment: Jayna Vanessa WPtel: [address] [place], [place] [phone] FOLLOW UP 05/26/2013 Patient Education: Patient Medication Summary Completed 05/26/2013 Visit Plan: OK to proceed with planned [facility] surgery next week Continue current meds Check fasting lab--CBC, CMP, TSH, free T4, HbA1C, Lipids, Vit D at end of this week prior to surgery 05/06/2013 Appointment: Jayna Vanessa WPtel: [address] [place], [place] [phone] FOLLOW UP 05/06/2013 Patient Education: Patient Medication Summary Completed 05/06/2013 Appointment: Jayna Vanessa WPtel: [address] [place], [place] [phone] ACUTE ILLNESS 04/23/2013 Patient Education: Patient Medication Summary Completed 04/23/2013 Patient Education: [facility] - Saving AutoInj - 18+ - Dynamic Portal ID Completed 04/23/2013 Visit Plan: Decrease Lasix to 20mg daily Leave potassium at 20meq daily Check Chem 7 in 1wk 03/31/2013 Appointment: Jayna Vanessa WPtel: [address] [place], [place] [phone] FOLLOW UP 03/31/2013 Patient Education: Patient Medication Summary Completed 03/31/2013 Appointment: Conchita Capone WPtel: [address] [place], [place] [phone] ACUTE ILLNESS 03/05/2013 Patient Education: Patient Medication Summary Completed 03/05/2013 Visit Plan: Lab discussed Continue curre nt meds Pt is going to start allergy injections Go for port placement to continue prolastin infusions 02/04/2013 Appointment: Jayna Vanessa WPtel: [address] [place], [place] [phone] ACUTE ILLNESS 02/04/2013 Patient Education: Patient Medication Summary Completed 02/04/2013 Visit Plan: 2-D ECHO discussed See Pulmo nology Pt states cough had went away with allergy meds and then has came back Continue allergy meds and add pepcid BID Discussed allergy testing 11/27/2012 Appointment: Jayna Vanessa WPtel: [address] [place], [place] [phone] FOLLOW UP 11/27/2012 Patient Education: Patient Medication Summary Completed 11/27/2012 Visit Plan: PFTS discussed Proceed with 2-D ECHO and pulmonology evaluation Pt was concerned propranolol could be cause but discussed this is likely not culpri HOMERO was DCed in 2009, is on PPI, has seen ENT, will restart allergy meds--may need allergy testing 11/11/2012 Appointment: Jayna Vanessa WPtel: [phone] FOLLOW UP 11/11/2012 Patient Education: Patient Medication Summary Completed 11/11/2012 Visit Plan: Hold metformin Check CMP, Li pids, TSH, Free T4, HbA1C Check PFTs 10/20/2012 Appointment: Jayna Vanessa WPtel: [phone] [place], [place] [phone] 10/17 left message FOLLOW UP 10/20/2012 Patient Education: Patient Medication Summary Completed 10/20/2012 Appointment: Jayna Vanessa WPtel: [phone] [place], [place] [phone] 10/13 vm FOLLOW UP 10/14/2012 Visit Plan: Discussed fluids and rest. W ill monitor for worsening symptoms/fever. Azithromycin, medrol dose pack and refil on cough syrup. Pt. will notify if symptoms worsen or persist. 09/03/2012 Appointment: Lizzie eKlly WPtel: [address] [place], [place] [phone] ACUTE ILLNESS 09/03/2012 Patient Education: Patient Medication Summary Completed 09/03/2012 Visit Plan: discussed that symptoms star edvin around [place] time. Will begin culturelle BID and monitor for fever or worsening symptoms. Fluid intake important. CBC, CMP, sed rate and stool studies. Order written for Mag lab. 07/23/2012 Appointment: Lizzie Kelly WPtel: [address] [place], [place] [phone] ACUTE ILLNESS 07/23/2012 Patient Education: Patient Medication Summary Completed 07/23/2012 Visit Plan: Increase Metformin to 1000mg po BID Accuchecks daily Continue rest of meds at current dose and low-fat, low-sugar diet with increased exercise Check fasting lab in 4mos Restart Nexium 05/20/2012 Appointment: Jayna Vanessa WPtel: [phone] [phone] patient had bad night so missed 05/06 appt...left voicemail 05/19 FOLLOW UP 05/20/2012 Patient Education: Patient Medication Summary Completed 05/20/2012 Appointment: Jayna Vanessa WPtel: [address] [place], [place] [phone] patient had bad night so missed 05/06 appt time. FOLLOW UP 05/06/2012 Appointment: Galina Leos WPtel: [address] [place], [place] [phone] ACUTE ILLNESS 04/04/2012 Patient Education: Patient Medication Summary Completed 04/04/2012 Visit Plan: Cryotherapy as above 02/20/2012 Appointment: Jayna Vanessa WPtel: [address] [place], [place] [phone] 02/18 OFFICE SURGERY 02/20/2012 Patient Education: Patient Medication Summary Completed 02/20/2012 Visit Plan: Increase Metfromin to 1000mg daily Continue all other current meds 01/02/2012 Appointment: Jayna Vanessa WPtel: [address] [place], [place] [phone] FOLLOW UP 01/02/2012 Patient Education: Patient Medication Summary Completed 01/02/2012 Appointment: Lizzie Kelly WPtel: [address] [place], [place] [address] ACUTE ILLNESS 09/04/2011 Patient Education: Patient Medication Summary Completed 09/04/2011 Visit Plan: Finish Keflex Proceed with c olonoscopy Increase aspirin to 325mg daily for next 2wks Add Vimovo 20/500mg po Daily 08/14/2011 Appointment: Jayna Vanessa WPtel: [address] [place], [place] [phone] [facility] Follow Up 08/14/2011 Patient Education: Patient Medication Summary Completed 08/14/2011 Appointment: Lizzie Kelly WPtel: [address] [place], [place] [address] ACUTE ILLNESS 07/31/2011 Patient Education: Patient Medication Summary Completed 07/31/2011 Visit Plan: Doxy and steroids. Codeine/g uiaf cough syrup. Pt. will monitor for worsening symptoms and notify if fever occurs. Encouraged rest and fluids. 07/25/2011 Appointment: Lizzie Kelly WPtel: [address] [place], [place] [phone] ACUTE ILLNESS 07/25/2011 Patient Education: Patient Medication Summary Completed 07/25/2011 Visit Plan: Check full lab in 3mos Radha nue with all current meds Continue PT for knee 07/12/2011 Appointment: Jayna Vanessa WPtel: [address] [place], [place] [phone] FOLLOW UP 07/12/2011 Patient Education: Patient Medication Summary Completed 07/12/2011 Visit Plan: Continue symbicort for 2 mor e weeks 05/09/2011 Appointment: Jayna Vanessa WPtel: [address] [place], [place] [phone] FOLLOW UP 05/09/2011 Patient Education: Patient Medication Summary Completed 05/09/2011 Appointment: Jayna Vanessa WPtel: [address] [place], [place] [phone] ER Follow UP 05/02/2011 Patient Education: Patient Medication Summary Completed 05/02/2011 Visit Plan: Pt. has recently finished ro und of Cefdinir with no improvement. Chest x-ray, CBC, CMP and mycoplasma order given to pt. Pt. will start Doxycycline. 04/25/2011 Appointment: Lizzie Kelly WPtel: [address] [place], [place] [phone] FOLLOW UP 04/25/2011 Patient Education: Patient Medication Summary Completed 04/25/2011 Appointment: Lizzie Kelly WPtel: [address] [place], [place] [phone] ACUTE ILLNESS 04/04/2011 Patient Education: Patient Medication Summary Completed 04/04/2011 Appointment: Lizzie Kelly WPtel: [address] [place], [place] [phone] ACUTE ILLNESS 04/03/2011 Visit Plan: Decrease Synthroid to 150mcg daily Repeat TSH and Free T4 in 2mos Knee injection as above 03/01/2011 Appointment: Jayna Vaenssa WPtel: [address] [place], [place] [phone] 03/01/2011 Patient Education: Patient Medication Summary Completed 03/01/2011 Visit Plan: Increase Synthroid to 175mcg po daily Check TSH, Free T4 in 8wks Injection given to knee as above Continue Pt 01/04/2011 Appointment: Jayna Vanessa WPtel: [address] [place], [place] [phone] FOLLOW UP 01/04/2011 Patient Education: Patient Medication Summary Completed 01/04/2011 Visit Plan: Septra DS, Mupirocin topical . Pt. will observe wound and report worsening symptoms. 12/07/2010 Appointment: Lizzie Kelly WPtel: [address] [place], [place] [phone] ACUTE ILLNESS 12/07/2010 Patient Education: Patient Medication Summary Completed 12/07/2010 Visit Plan: Increase Synthroid to 150mcg po daily Add Metformin Diet and exercise discussed at length again Repeat thyroid US Add Vit D level Will see if polydipsia improves with metformin 10/09/2010 Appointment: Jayna Vanessa WPtel: [address] [place], [place] [phone] FOLLOW UP 10/09/2010 Patient Education: Patient Medication Summary Completed 10/09/2010 Visit Plan: Increase Synthroid to 125mcg daily Decrease Vit D 50,000 u three times a week Discussed HRT Proceed with sleep study Fwup pending sleep study results 08/07/2010 Appointment: Jayna Vanessa WPtel: [address] [place], [place] [phone] FOLLOW UP 08/07/2010 Patient Education: Patient Medication Summary Completed 08/07/2010 Visit Plan: Decrease Synthroid to 100mcg QD Check thyroid lab in 2mos Check estradiol levels in 2mos--discussed HRT Increase Vit D 50,000u to 1 daily M-F 06/06/2010 Appointment: Jayna Vanessa WPtel: [address] [place], [place] [phone] ACUTE ILLNESS 06/06/2010 Patient Education: Patient Medication Summary Completed 06/06/2010 Visit Plan: Injections to knees as above 04/12/2010 Appointment: Jayna Vanessa WPtel: [address] [place], [place] [phone] US OFFICE SURGERY 04/12/2010 Patient Education: Patient Medication Summary Completed 04/12/2010 Visit Plan: Decrease Synthroid to 175mcg QD Check lab in 2mos Change daily Vit D to weekly 03/20/2010 Appointment: Jayna Vanessa WPtel: [address] [place], [place] [phone] ESTABLISHED PATIENT 03/20/2010 Patient Education: Patient Medication Summary Completed 03/20/2010 Appointment: Jayna Vanessa WPtel: [address] [place], [place] [phone] ACUTE ILLNESS 01/30/2010 Patient Education: Patient Medication Summary Completed 01/30/2010 Appointment: Jayna Vanessa WPtel: [address] [place], [place] [phone] ACUTE ILLNESS 01/09/2010 Patient Education: Patient Medication Summary Completed 01/09/2010 Appointment: Jayna Vanessa WPtel: [address] [place], [place] [phone] BP CHECK 11/07/2009 Patient Education: Patient Medication Summary Completed 11/07/2009 Appointment: Jayna Vanessa WPtel: [address] [place], [place] [phone] OFFICE SURGERY 10/26/2009 Patient Education: Patient Medication Summary Completed 10/26/2009 Appointment: Lizzie Kelly WPtel: [address] [place], [place] [phone] OFFICE SURGERY 10/17/2009 Patient Education: Patient Medication [...] up appnt. 10/04/2009 Appointment: Lizzie Kelly WPtel: [address] [place], [place] [phone] ACUTE ILLNESS 10/04/2009 Patient Education: Patient Medication Summary Completed 10/04/2009 Visit Plan: E-scribed refils. Pt. report s that she normally has lab work drawn and orders are given (faxed) to her normal lab facility by Patricia. Pt. states her migraine headaches have abated for now and that she is going to see her migraine doctor in [place] in the near future(Dr Cook) Pt will seek re-eval as necessary for acute issues. 09/21/2009 Appointment: Lizzie Kelly WPtel: [address] [place], [place] [phone] US CHECK UP 09/21/2009 Patient Education: Patient Medication Summary Completed 09/21/2009 Appointment: Lizzie Kelly WPtel: [address] [place], [place] [phone] US CHECK UP 09/20/2009 Appointment: Lizzie Kelly WPtel: [address] [place], [place] [phone] [place] FOLLOW UP 09/19/2009 Referral: Alf Lang WPtel: #1 [id number] [place] Referral Appointment Requested Referral: Singh Pina WPtel: [address] [facility] [id number] [place] Referral Appointment Requested Referral: Aditya Stone WPtel: [address] [id number] [place] Referral Appointment Requested Instructions Comment Date [...] going to see her migraine doctor in [place] in the near future(Dr Cook) Pt will [...]
--- OUTSIDE RECORDS SUMMARY | 2022-09-10 17:05 | XMS REPORT | CCD ---
Author Author Marcella Vanessa D.O. 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 Name Role Phone Jayna Vanessa D.O., PP Unavailable CCM Unavailable Summary Purpose Interface Exchange Insurance Providers Payer name Policy type / Coverage type Covered constitution party ID Effective Begin Date Effective End Date [employer] Commercial Insurance [id number] Unknown Commercial Insurance [id number] Unknown Family history Side Diagnosis Age At Onset Heart disease Unknown Diabetes Unknown Sister Diagnosis Age At Onset Diabetes Unknown Brother Diagnosis Age At Onset Diabetes Unknown Mother Diagnosis Age At Onset Heart disease Unknown Father Diagnosis Age At Onset Heart disease Unknown Social History Social History Element Codes Description Effective Dates Tobacco history SNOMED CT: 248101980 Never smoker 04/04/2011 Marital status Unknown 09/21/2009 [...] gastroenteritis ICD-10: K52.9 ICD-9: 558.9 07/05/2020 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 11/28/2016 Active [...] ANXIETY STATE NOS ICD-9: 300.00 03/05/2013 Active Wgncm-0-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 02/04/2013 A ctive DYSPNEA [...] 24 hr tablet, extended release RxNor m: 220660 TAKE 1 Tablet BY MOUTH DAILY IN THE MORNING (replaces 150mg DOSE) 08/29/2022 02/24/2023 Active levothyroxine 150 mcg tablet RxNorm: 500338 TAKE ONE TA BLET BY MOUTH EVERY IN THE MORNING 08/29/2022 02/24/2023 Active ciprofloxacin 250 mg tablet RxNorm: 780098 Take 1 Tablet(s) Ora l Q12H 06/29/2022 07/03/2022 Inactive levothyroxine 150 mcg tablet RxNorm: 757535 Take 1 Tablet(s) Or al QAM 06/03/2022 06/03/2022 Inactive Wellbutrin XL 300 mg 24 hr tablet, extended release RxNorm: 287684 Take 1 Tablet(s) Oral QAM replaces 150mg dose 05/28/2022 05/28/2022 Inactive Xyzal 5 mg tablet RxNorm: 723960 Take 1 Tablet(s) Oral QPM 05/10/2010/06/2022 Active Claritin 10 mg tablet RxNorm: 254858 Take 1 Tablet(s) Oral QAM 04/2409/06/2022 Active Flonase Allergy Relief 50 mcg/actuation nasal spray,suspensi on RxNorm: 1085932 Take 1 [place] Nasal two times a day 05/10/2022 06/08/2022 Inactive Wellbutrin XL 150 mg 24 hr tablet, extended release RxNorm: 475502 Take 1 Tablet(s) Oral QAM 05/10/2022 05/27/2022 Inactive sumatriptan 100 mg tablet RxNorm: 622430 1 Tablet(s) Or al after onset of migraine; may repeat after 2 hours if headache returns, not to exceed 200mg in 24hrs replaces rizatriptan 04/19/2022 04/19/2022 Inactive sumatriptan 100 mg tablet RxNorm: 651113 1 Tablet(s) Or al after onset of migraine; may repeat after 2 hours if headache returns, not to exceed 200mg in 24hrs replaces rizatriptan 04/19/2022 04/19/2022 Inactive propranolol 20 mg tablet RxNorm: 790694 TAKE 1 TABLET BY MOUTH TWICE DAILY 04/18/2022 10/14/2022 Active rizatriptan 10 mg disintegrating tablet RxNorm: 612869 Take 1 Tablet(s) Oral on top of tongue, allow to dissolve then swallow once, may repeat every 2 hrs; max 30 mg/24hrs 04/18/2022 04/18/2022 Inactive prednisone 20 mg tablet RxNorm: 386262 Take 1 Tablet(s) Oral tw o times a day 02/15/2022 02/21/2022 Inactive Nurtec ODT 75 mg disintegrating tablet RxNorm: 4699243 T bria 1 Tablet(s) Oral per 24 hours as needed for migraine 02/09/2022 02/09/2022 Inactive Nurtec ODT 75 mg disintegrating tablet RxNorm: 5600030 T bria 1 Tablet(s) Oral per 24 hours as needed for migraine 02/09/2022 02/09/2022 Inactive fluticasone propionate 50 mcg/actuation nasal spray,suspensi on RxNorm: 4793499 SPRAY ONE SPRAY IN EACH NOSTRIL TWICE DAILY NEEDED 02/05/20222021 Inactive levothyroxine 150 mcg tablet RxNorm: 391638 Take 1 Tablet(s) Or al QAM 02/04/2022 02/04/2022 Inactive albuterol sulfate HFA 90 mcg/actuation aerosol inhaler RxNor m: 4795508 Inhale 2 Puff(s) Oral Q4H as needed 01/05/2022 04/04/2022 Inactive pantoprazole 40 mg tablet,delayed release RxNorm: 336932 Take 1 Tablet(s) Oral QD 01/04/2022 07/02/2022 Inactive propranolol 20 mg tablet RxNorm: 269974 TAKE 1 TABLET BY MOUTH TWICE DAILY 01/04/2022 04/17/2022 Inactive levothyroxine 150 mcg tablet RxNorm: 457756 Take 1 Tablet(s) Or al QAM 12/05/2021 12/05/2021 Inactive metronidazole 500 mg tablet RxNorm: 412290 Take 1 Table t(s) Oral two times a day 11/29/2021 12/05/2021 Inactive Singulair 10 mg tablet RxNorm: 488661 Take 1 Tablet(s) Oral QPM 06/202105/09/2022 Inactive Diflucan 100 mg tablet RxNorm: 406910 Take 1 Tablet(s) Oral QD 06/06/202111/28/2021 Inactive pantoprazole 40 mg tablet,delayed release RxNorm: 454667 Take 1 Tablet(s) Oral QD 11/06/2021 11/06/2021 Inactive fluticasone propionate 50 mcg/actuation nasal spray,suspensi on RxNorm: 6422679 SPRAY ONE SPRAY IN EACH NOSTRIL TWICE DAILY NEEDED 11/03/20212021 Inactive scopolamine 1 mg over 3 days transdermal patch RxNorm: 80219 2 Apply 1 Unit Dose Transdermal Q72H behind ear 10/30/2021 02/05/2022 Inactive albuterol sulfate HFA 90 mcg/actuation aerosol inhaler RxNor m: 4161375 Inhale 2 Puff(s) Oral Q4H as needed 10/05/2021 11/24/2021 Inactive pantoprazole 40 mg tablet,delayed release RxNorm: 696947 Take 1 Tablet(s) Oral QD 10/05/2021 10/05/2021 Inactive meloxicam 7.5 mg tablet RxNorm: 464391 Take 1 Tablet(s) Oral QD for pain 09/05/2021 09/11/2021 Inactive baclofen 10 mg tablet RxNorm: 712536 Take 0.5-1 Tablet( s) Oral three times per week as needed for muscle spasm 09/05/2021 02/05/2022 Inactive prednisone 20 mg tablet RxNorm: 241136 Take 1 Tablet(s) Oral QD 08/202108/28/2021 Inactive pantoprazole 40 mg tablet,delayed release RxNorm: 317756 Take 1 Tablet(s) Oral QD 07/07/2021 09/04/2021 Inactive fluticasone propionate 50 mcg/actuation nasal spray,suspensi on RxNorm: 7019956 Take 1 [place] Nasal two times a day in each nostrilas needed 07/04/2021 10/01/2021 Inactive Decadron 6 mg tablet RxNorm: 909090 Take 1 Tablet(s) Oral QD 202107/08/2021 Inactive albuterol sulfate HFA 90 mcg/actuation aerosol inhaler RxNor m: 4156157 Inhale 2 Puff(s) Oral Q4H as needed 06/08/2021 09/05/2021 Inactive propranolol 20 mg tablet RxNorm: 118623 TAKE 1 TABLET BY MOUTH TWICE DAILY 06/08/2021 06/08/2021 Inactive pantoprazole 40 mg tablet,delayed release RxNorm: 134290 Take 1 Tablet(s) Oral QD 04/09/2021 06/07/2021 Inactive ProAir HFA 90 mcg/actuation aerosol inhaler RxNorm: 547343 2 Puff(s) Inhalation Q4H as needed 03/13/2021 03/13/2021 Inactive citalopram 10 mg tablet RxNorm: 977778 1 Tablet(s) Oral two antonio es a day 03/13/2021 02/05/2022 Inactive levothyroxine 150 mcg tablet RxNorm: 963978 TAKE 1 Tabl et BY MOUTH EVERY MORNING (REPLACES 137 MCG DOSE) 03/09/2021 03/09/2021 Inactive pantoprazole 40 mg tablet,delayed release RxNorm: 933582 Take 1 Tablet(s) Oral QD 02/08/2021 04/08/2021 Inactive triamcinolone acetonide 0.1 % topical cream RxNorm: 1146511 Take Application Topical two times a day to arm rash 01/19/2021 01/19/2021 Inactive prednisone 20 mg tablet RxNorm: 311447 Take 1 Tablet(s) Oral QD 01/23/2021 Inactive levothyroxine 150 mcg tablet RxNorm: 995135 Take 1 Tabl et(s) Oral QAM replaces 137mcg dose 01/03/2021 01/03/2021 Inactive prednisone 20 mg tablet RxNorm: 672564 Take 2 Tablet(s) Oral QD 01/202112/03/2020 Inactive promethazine-DM 6.25 mg-15 mg/5 mL oral syrup RxNorm: 228255 Take 5 Milliliter(s) Oral Every 6 hours as needed, not to exceed 30 mL in 24 hours 11/29/2020 12/03/2020 Inactive doxycycline hyclate 100 mg capsule RxNorm: 7466321 1 Cap kimi(s) Oral two times a day 09/29/2020 10/05/2020 Inactive Lalita-D 12 Hour 60 mg-120 mg tablet,extended release RxNor m: 863796 1 Tablet(s) Oral QD 09/19/2020 10/03/2020 Inactive ProAir HFA 90 mcg/actuation aerosol inhaler RxNorm: 301608 2 Inhalation Q4H as needed 09/19/2020 09/19/2020 Inactive propranolol 20 mg tablet RxNorm: 300316 TAKE 1 TABLET BY MOUTH TWICE DAILY 09/15/2020 09/15/2020 Inactive pantoprazole 40 mg tablet,delayed release RxNorm: 017909 1 Tabl et(s) Oral QD 09/09/2020 09/08/2020 Inactive pantoprazole 40 mg tablet,delayed release RxNorm: 842432 1 Tabl et(s) Oral QD 09/09/2020 11/07/2020 Inactive propranolol 20 mg tablet RxNorm: 923710 TAKE 1 TABLET BY MOUTH TWICE DAILY 08/24/2020 09/09/2020 Inactive levothyroxine 137 mcg tablet RxNorm: 776856 1 Tablet(s) Oral QD 08/202001/02/2021 Inactive exctzpiq-zzvexugsx-ntfjheiw 3.5 mg/mL-10,000 unit/mL-0 .1% eye drops RxNorm: 197396 4 Drop(s) Otic three times a day 08/10/2020 02/05/2022 Inactive prednisone 20 mg tablet RxNorm: 500158 1 Tablet(s) Oral two antonio es a day 08/01/2020 08/08/2020 Inactive pantoprazole 40 mg tablet,delayed release RxNorm: 958186 1 Tabl et(s) Oral QD 07/13/2020 09/08/2020 Inactive ondansetron HCl 4 mg tablet RxNorm: 880691 1 Tablet(s) Oral Q4H as needed for nausea 07/13/2020 05/09/2022 Inactive levothyroxine 137 mcg tablet RxNorm: 795123 1 Tablet(s) Oral QD 08/23/2020 Inactive pantoprazole 40 mg tablet,delayed release RxNorm: 909635 1 Tabl et(s) Oral QD 07/13/2020 07/12/2020 Inactive ondansetron HCl 4 mg tablet RxNorm: 595247 1 Tablet(s) Oral Q4H as needed for nausea 07/05/2020 07/12/2020 Inactive Flagyl 500 mg tablet RxNorm: 796822 1 Tablet(s) Oral three time s a day 07/05/2020 07/12/2020 Inactive Fish Oil 1,000 mg (120 mg-180 mg) capsule RxNorm: 1 Caps ule(s) Oral QD 06/23/2020 09/18/2020 Inactive rosuvastatin 10 mg tablet RxNorm: 844674 1 Tablet(s) Oral MWF 06/2306/22/2020 Inactive rosuvastatin 10 mg tablet RxNorm: 866756 1 Tablet(s) Oral MWF 06/2302/05/2022 Inactive fluconazole 100 mg tablet RxNorm: 892000 1 Tablet(s) Oral QOD 05/1706/21/2020 Inactive Macrobid 100 mg capsule RxNorm: 131260 1 Capsule(s) Oral two ti mes a day 05/17/2020 05/24/2020 Inactive levothyroxine 137 mcg tablet RxNorm: 994105 TAKE 1 TABLET BY MO UTH ONCE DAILY 05/16/2020 07/12/2020 Inactive Eliquis 5 mg tablet RxNorm: 2029565 1 Tablet(s) Oral two times a da y 04/25/2020 02/05/2022 Inactive propranolol 20 mg tablet RxNorm: 057005 TAKE 1 TABLET BY MOUTH TWICE DAILY 04/25/2020 08/23/2020 Inactive doxycycline hyclate 100 mg capsule RxNorm: 1009903 1 Cap kimi(s) Oral two times a day 03/24/2020 03/31/2020 Inactive doxycycline hyclate 100 mg capsule RxNorm: 8665259 1 Cap kimi(s) Oral two times a day 03/24/2020 03/23/2020 Inactive propranolol 20 mg tablet RxNorm: 671557 TAKE 1 TABLET BY MOUTH TWICE DAILY 03/15/2020 04/13/2020 Inactive Eliquis 5 mg tablet RxNorm: 7549881 1 Tablet(s) Oral two times a da y 03/14/2020 04/24/2020 Inactive Eliquis 5 mg tablet RxNorm: 9601936 1 Tablet(s) Oral two times a da y 03/14/2020 03/13/2020 Inactive levofloxacin 500 mg tablet RxNorm: 073649 1 Tablet(s) Oral QD 02/1802/26/2020 Inactive levofloxacin 500 mg tablet RxNorm: 604103 1 Tablet(s) Oral QD 02/1802/18/2020 Inactive Tessalon Perles 100 mg capsule RxNorm: 695616 1 Capsule (s) Oral three times a day as needed 02/16/2020 02/25/2020 Inactive levothyroxine 137 mcg tablet RxNorm: 190335 TAKE 1 TABLET BY [facility] ONCE DAILY 02/15/2020 03/15/2020 Inactive ProAir HFA 90 mcg/actuation aerosol inhaler RxNorm: 331362 2 Inhalation Q4H as needed 02/11/2020 09/18/2020 Inactive Medrol (Isaiah) 4 mg tablets in a dose pack RxNorm: 508305 Tablet( s) Oral 02/11/2020 02/11/2020 Inactive levothyroxine 137 mcg tablet RxNorm: 071324 TAKE 1 TABLET BY [facility] ONCE DAILY 12/16/2019 01/14/2020 Inactive propranolol 20 mg tablet RxNorm: 393708 TAKE 1 TABLET BY MOUTH TWICE DAILY 12/16/2019 01/14/2020 Inactive levothyroxine 137 mcg tablet RxNorm: 323121 TAKE 1 TABLET BY [facility] ONCE DAILY 10/16/2019 11/14/2019 Inactive prednisone 20 mg tablet RxNorm: 298470 1 Tablet(s) Oral two times a day for rash/hives 09/29/2019 10/04/2019 Inactive Probiotic 10 billion cell capsule RxNorm: 1111320 1 Capsule(s) O ral QD 09/14/2019 02/10/2020 Inactive Bactrim DS 800 mg-160 mg tablet RxNorm: 299044 1 Tablet(s) Oral two times a day 09/14/2019 09/13/2019 Inactive citalopram 10 mg tablet RxNorm: 570208 1 Tablet(s) Oral two antonio es a day 09/14/2019 12/20/2019 Inactive hydroxychloroquine 200 mg tablet RxNorm: 098270 1 Table t(s) Oral two times a day 09/14/2019 02/05/2022 Inactive Bactrim DS 800 mg-160 mg tablet RxNorm: 374378 1 Tablet(s) Oral two times a day 09/14/2019 09/24/2019 Inactive Cipro 250 mg tablet RxNorm: 944393 1 Tablet(s) Oral two times a day 09/02/2019 09/08/2019 Inactive levothyroxine 137 mcg tablet RxNorm: 247289 1 Tablet(s) Oral QD 10/10/2019 Inactive levothyroxine 137 mcg tablet RxNorm: 410700 1 Tablet(s) Oral QD 08/11/2019 Inactive propranolol 20 mg tablet RxNorm: 175826 TAKE 1 TABLET BY MOUTH TWICE DAILY 06/18/2019 12/14/2019 Inactive 06/18/2019 11:09:41 AM Cipro 250 mg tablet RxNorm: 525312 1 Tablet(s) Oral two times a day 04/17/2019 04/16/2019 Inactive Cipro 250 mg tablet RxNorm: 907534 1 Tablet(s) Oral two times a day 04/17/2019 04/24/2019 Inactive Macrobid 100 mg capsule RxNorm: 426927 1 Capsule(s) Oral two ti mes a day 04/15/2019 04/16/2019 Inactive metronidazole 500 mg tablet RxNorm: 431394 1 Tablet(s) Oral thr ee times a day 03/18/2019 03/28/2019 Inactive Bactrim DS 800 mg-160 mg tablet RxNorm: 781217 1 Tablet(s) Oral two times a day 03/18/2019 03/18/2019 Inactive Cipro 250 mg tablet RxNorm: 662411 1 Tablet(s) PO BID 01/26/201901/22 Inactive Flagyl 500 mg tablet RxNorm: 094637 1 Tablet(s) PO TID 01/26/201904/2019 Inactive prednisone 20 mg tablet RxNorm: 770559 1 Tablet(s) PO B ID for 4 days then 1 po daily for 4 days 01/08/2019 03/17/2019 Inactive doxycycline hyclate 100 mg capsule RxNorm: 9008241 1 Capsule(s) PO BID 01/08/2019 01/14/2019 Inactive doxycycline hyclate 100 mg capsule RxNorm: 1019209 1 Capsule(s) PO BID 01/08/2019 01/07/2019 Inactive propranolol 20 mg tablet RxNorm: 780517 1 Tablet(s) PO BID 12/24/1906/17/2019 Inactive Bactrim DS 800 mg-160 mg tablet RxNorm: 883587 1 Tablet (s) PO BID repeat urine culture 48 hours after antibiotics completed. 12/15/2018 12/14/2018 In active Bactrim DS 800 mg-160 mg tablet RxNorm: 774443 1 Tablet (s) PO BID repeat urine culture 48 hours after antibiotics completed. 12/15/2018 12/19/2018 In active levothyroxine 137 mcg tablet RxNorm: 759626 1 Tablet(s) PO QD 12/0906/06/2019 Inactive meclizine 25 mg tablet RxNorm: 839862 1 Tablet(s) PO TID for di zziness 10/30/2018 11/08/2018 Inactive doxycycline hyclate 100 mg tablet RxNorm: 4831750 1 Tablet(s) PO BI D 10/07/2018 10/16/2018 Inactive albuterol sulfate HFA 90 mcg/actuation aerosol inhaler RxNor m: 092743 2 Puff(s) INH Q4H as needed 10/07/2018 02/10/2020 Inactive chlorpheniramine 4 mg tablet RxNorm: 4748183 1 Tablet(s) PO QHS for allergies 10/07/2018 03/17/2019 Inactive Tessalon 200 mg capsule RxNorm: 432990 1 Capsule(s) PO TID 10/08/1910/26/2018 Inactive doxycycline hyclate 100 mg tablet RxNorm: 6743349 1 Tablet(s) PO BI D 10/07/2018 10/06/2018 Inactive Tessalon 200 mg capsule RxNorm: 284087 1 Capsule(s) PO TID 10/08/1910/06/2018 Inactive levothyroxine 137 mcg tablet RxNorm: 666861 1 Tablet(s) PO QD 08/0512/02/2018 Inactive propranolol 20 mg tablet RxNorm: 772410 1 Tablet(s) PO BID 06/23/2012/19/2018 Inactive chlorpheniramine 4 mg tablet RxNorm: 8034934 1 Tablet(s) PO QHS for allergies 06/23/2018 08/21/2018 Inactive levothyroxine 137 mcg tablet RxNorm: 308914 1 Tablet(s) PO QD 06/0308/01/2018 Inactive levothyroxine 137 mcg tablet RxNorm: 325298 1 Tablet(s) PO QD 06/0306/02/2018 Inactive Synthroid 150 mcg tablet RxNorm: 012387 1 Tablet(s) PO QD 04/03/2018 06/22/2018 Inactive Synthroid 150 mcg tablet RxNorm: 532991 1 Tablet(s) PO QD 04/03/2018 04/02/2018 Inactive propranolol 20 mg tablet RxNorm: 768598 1 Tablet(s) PO BID 03/17/20 18 06/14/2018 Inactive propranolol 20 mg tablet RxNorm: 597454 1 Tablet(s) PO BID 03/17/20 18 06/21/2020 Inactive Lancets,Ultra Thin RxNorm: Miscellaneous Use to test blood sugar daily and as needed (Dx: E11.65) 02/28/2018 05/09/2022 Inactive Contour Test Strips RxNorm: Miscellaneous Test b lood sugar daily and as needed (Dx: E11.65) 02/28/2018 05/09/2022 Inactive Contour Meter RxNorm: 1 Miscellaneous DX: E11.65 02/27/20182021 Inactive DX: E11.65 Synthroid 175 mcg tablet RxNorm: 044131 1 Tablet(s) PO QD 01/28/2018 04/02/2018 Inactive Synthroid 175 mcg tablet RxNorm: 523363 1 Tablet(s) PO QD 01/16/2018 04/02/2018 Inactive Medrol (Isaiah) 4 mg tablets in a dose pack RxNorm: 670684 Tablet(s) P O 10/16/2017 01/15/2018 Inactive cyclobenzaprine 7.5 mg tablet RxNorm: 363063 1/2-1 Tablet(s) PO TID as needed 10/16/2017 06/22/2018 Inactive pantoprazole 40 mg tablet,delayed release RxNorm: 890025 1 Tabl et(s) PO QD 08/21/2017 06/22/2018 Inactive Nexium 40 mg capsule,delayed release RxNorm: 367817 1 Capsule(s ) PO QD 08/20/2017 08/20/2017 Inactive doxycycline hyclate 100 mg capsule RxNorm: 3210334 1 Capsule(s) PO BID 08/13/2017 08/12/2017 Inactive doxycycline hyclate 100 mg capsule RxNorm: 7595638 1 Capsule(s) PO BID 08/13/2017 08/19/2017 Inactive Tessalon Perles 100 mg capsule RxNorm: 955772 1 Capsule(s) PO T ID as needed 07/29/2017 08/07/2017 Inactive prednisone 20 mg tablet RxNorm: 913230 1 Tablet(s) PO BID 07/25/2017 07/27/2017 Inactive albuterol sulfate HFA 90 mcg/actuation aerosol inhaler RxNor m: 849550 2 Puff(s) INH Q4H as needed 07/25/2017 10/06/2018 Inactive doxycycline hyclate 100 mg capsule RxNorm: 7956391 1 Capsule(s) PO BID 06/10/2017 06/19/2017 Inactive prednisone 20 mg tablet RxNorm: 800498 1 Tablet(s) PO T ID for 2 days then 1 po BID for 2 days then 1 daily for 3 days 06/10/2017 08/12/2017 Inactive fenofibrate micronized 134 mg capsule RxNorm: 373338 TAKE 1 CAP KIMI DAILY 06/03/2017 06/22/2018 Inactive Zithromax Z-Isaiah 250 mg tablet RxNorm: 242037 Tablet(s) PO Take as directed 05/28/2017 06/09/2017 Inactive prednisone 20 mg tablet RxNorm: 912310 2 Tablet(s) PO QD 05/28/2017 1 08/01/2016 Inactive Tessalon Perles 100 mg capsule RxNorm: 911084 1 Capsule(s) PO T ID as needed 05/28/2017 06/09/2017 Inactive Janumet XR 100 mg-1,000 mg tablet,extended release RxNorm: 1 861335 1 Tablet(s) PO QD 02/14/2017 06/22/2018 Inactive fluoxetine 40 mg capsule RxNorm: 287017 1 Capsule(s) PO QD 02/15/20 17 06/22/2018 Inactive Vitamin D2 50,000 unit capsule RxNorm: 737189 1 Capsule (s) PO TAKE 1 CAPSULE BY MOUTH TWICE WEEKLY 02/11/2017 07/10/2017 Inactive Generic For:* DRISDOL [id number] 02/03/2015 10:10:59 AM Janumet XR 100 mg-1,000 mg tablet,extended release RxNorm: 1 084517 1 Tablet(s) PO QD 09/24/2016 10/06/2018 Inactive Vitamin D2 50,000 unit capsule RxNorm: 346827 Capsule(s ) TAKE 1 CAPSULE BY MOUTH TWICE WEEKLY 09/11/2016 02/11/2017 Inactive Generic For:*VERN FREEDMAN [id number] 02/03/2015 10:10:59 AM Pepcid 20 mg tablet RxNorm: 661199 Tablet(s) PO TAKE 1 TABLET BY MOUTH TWICE DAILY. 06/14/2016 06/13/2016 Inactive fluoxetine 40 mg capsule RxNorm: 993257 1 Capsule(s) PO QD 06/14/20 16 12/10/2016 Inactive loratadine 10 mg tablet RxNorm: 328129 1 Tablet(s) PO QD 1 Tabl et(s) PO BID 06/14/2016 04/03/2017 Inactive [AttnRPh: Saving ryan ly/adjudicate RxGRP:SG20 RxBIN:[id number] RxPCN: ID#:[id number]] Vitamin D2 50,000 unit capsule RxNorm: 083749 Capsule(s ) TAKE 1 CAPSULE BY MOUTH TWICE WEEKLY 06/14/2016 09/10/2016 Inactive Generic For:*VERN FREEDMAN [id number] 02/03/2015 10:10:59 AM Synthroid 175 mcg tablet RxNorm: 768719 1 Tablet(s) PO Saturday t hrough Saturday QD 06/05/2016 01/15/2018 Inactive Synthroid 150 mcg tablet RxNorm: 476903 1 Tablet(s) PO Sat and Sun 11/09/2015 06/04/2016 Inactive Synthroid 175 mcg tablet RxNorm: 007680 1 Tablet(s) PO Saturday t hrough Saturday11/09/2015 06/04/2016 Inactive Synthroid 150 mcg tablet RxNorm: 654546 1 Tablet(s) PO Sat and Sun , Sat, Sun 11/09/2015 11/08/2015 Inactive Janumet XR 100 mg-1,000 mg tablet,extended release RxNorm: 1 340136 TAKE 1 TABLET DAILY 09/30/2015 09/24/2016 Inactive azithromycin 500 mg tablet RxNorm: 704884 1 Tablet(s) PO QD 016 07/25/2015 Inactive azithromycin 500 mg tablet RxNorm: 194047 1 Tablet(s) PO QD 016 08/01/2015 Inactive loratadine 10 mg tablet RxNorm: 252314 1 Tablet(s) PO BID 04/06/2015 06/14/2016 Inactive [AttnRPh: Saving apply/adjudicate RxGRP: SG20 RxBIN:[id number] RxPCN: ID#:[id number]] Synthroid 175 mcg tablet RxNorm: 665423 1 Tablet(s) PO M, W, F 10/0 10/201411/08/2015 Inactive Synthroid 150 mcg tablet RxNorm: 022898 1 Tablet(s) PO QD Tu, T h, Sat, Sun 03/28/2015 11/08/2015 Inactive propranolol 20 mg tablet RxNorm: 914357 1 Tablet(s) PO BID 02/09/20 15 06/13/2016 Inactive fluoxetine 40 mg capsule RxNorm: 674480 1 Capsule(s) PO QD 02/09/20 15 06/14/2016 Inactive Vitamin D2 50,000 unit capsule RxNorm: 161271 TAKE 1 CA PSULE BY MOUTH TWICE WEEKLY 02/03/2015 06/14/2016 Inactive Generic For:*VERN FREEDMAN [id number] 02/03/2015 10:10:59 AM Lipitor 80 mg tablet RxNorm: 389680 1 Tablet(s) PO QD 01/24/201507/26 Inactive [AttnRPh: Saving apply/adjudicate RxGRP: SG20 RxBIN:[id number] RxPCN: ID#:[id number]] Bactrim DS 800 mg-160 mg tablet RxNorm: 242125 1 Tablet(s) PO BID 0 01/12/2015 01/11/2015 Inactive Synthroid 150 mcg tablet RxNorm: 703253 1 Tablet(s) PO QD 01/12/2015 03/27/2015 Inactive Bactrim DS 800 mg-160 mg tablet RxNorm: 685938 1 Tablet(s) PO BID 0 01/12/2015 01/18/2015 Inactive fluoxetine 40 mg capsule RxNorm: 792258 1 Capsule(s) PO QD 01/12/20 15 02/07/2015 Inactive Synthroid 137 mcg tablet RxNorm: 678817 1 Tablet(s) PO QD 12/08/2014 01/11/2015 Inactive [AttnRPh: Saving apply/adjudicate RxGRP: SG20 RxBIN:[id number] RxPCN: ID#:[id number]] Medrol (Isaiah) 4 mg tablets in a dose pack RxNorm: 898781 6 Tablet(s) PO QD --then as directed 11/24/2014 11/29/2014 Inactive albuterol sulfate HFA 90 mcg/actuation aerosol inhaler RxNor m: 104726 2 Puff(s) INH Q4H as needed 10/27/2014 07/24/2017 Inactive phenazopyridine 100 mg tablet RxNorm: 3024292 1 Tablet(s) PO TID 11/07/2015 Inactive [AttnRPh: Saving apply/adjud icate RxGRP:SG20 RxBIN:[id number] RxPCN: ID#:[id number]] Macrobid 100 mg capsule RxNorm: 171469 1 Capsule(s) PO BID 10/28/19 15 11/02/2014 Inactive [SAVINGS FOR NON-COVERED RUBIO GS -- BIN:232534, PCN: ASPROD1, Group: XXXXX, ID# [id number], Questions: . THIS IS NOT INSURANCE.] prednisone 20 mg tablet RxNorm: 737542 1 Tablet(s) PO BID 10/27/2014 10/31/2014 Inactive AttnRPh: Saving apply/adjudicate RxGRP:S G20 RxBIN:[id number] RxPCN: ID#:[id number]: Saving apply/adjudicate RxGRP:SG20 RxBIN:[id number] RxPCN:HT ID#:[id number] Macrobid 100 mg capsule RxNorm: 978974 1 Capsule(s) PO BID 09/24/19 15 09/29/2014 Inactive [SAVINGS FOR NON-COVERED RUBIO GS -- BIN:107656, PCN: ASPROD1, Group: XXXXX, ID# [id number], Questions: . THIS IS NOT INSURANCE.] phenazopyridine 100 mg tablet RxNorm: 7281737 1 Tablet(s) PO TID 09/24/2014 Inactive [SAVINGS FOR NON-COVERED RUBIO GS -- BIN:050064, PCN: ASPROD1, Group: XXXXX, ID# [id number], Questions: . THIS IS NOT INSURANCE.] propranolol 60 mg tablet RxNorm: 179692 1 Tablet(s) PO QD 07/26/2014 02/07/2015 Inactive [SAVINGS FOR UNINSURED PATIENTS -- BIN:0 29409, PCN: ASPROD1, Group: [id number], ID# [id number], Process claim through [employer], for questions: . THIS IS NOT INSURANCE.] loratadine 10 mg tablet RxNorm: 396951 1 Tablet(s) PO BID 07/12/2014 07/11/2014 Inactive [AttnRPh: Saving apply/adjudicate RxGRP: [id number] RxBIN:[id number] RxPCN: ID#:[id number]] loratadine 10 mg tablet RxNorm: 919634 1 Tablet(s) PO BID 07/12/2014 10/06/2018 Inactive [SAVINGS FOR UNINSURED PATIENTS -- BIN:0 [id number], PCN: ASPROD1, Group: [id number], ID# [id number], Process claim through [employer], for questions: . THIS IS NOT INSURANCE.] Vitamin D2 50,000 unit capsule RxNorm: 449273 1 Capsule (s) PO Take 1 capsule by mouth twice weekly 05/18/2014 02/02/2015 Inactive Pepcid 20 mg tablet RxNorm: 818058 TAKE 1 TABLET BY MOUTH TWICE DAILY. 05/18/2014 06/14/2016 Inactive Generic For:PEPCID 2 0MG 05/18/2014 11:28:51 AM Janumet XR 100 mg-1,000 mg tablet,extended release RxNorm: 1 532461 1 Tablet(s) PO QD 05/12/2014 08/09/2014 Inactive [SAVINGS FOR UNI NSURED PATIENTS -- BIN:[id number], PCN: ASPROD1, Group: [id number], ID# [id number], Process claim through [employer], for questions: . THIS IS NOT INSURANCE.] Voltaren 1 % topical gel RxNorm: 798145 TOP BID 04/21/2014 5 Inactive Apply to affected areas 2-3 times daily as needed. Trilipix 135 mg capsule,delayed release RxNorm: 971674 1 Tablet(s) PO QD 1 Capsule(s) PO QD 04/21/2014 09/17/2014 Inactive may do 90 day f ill if desired Synthroid 137 mcg tablet RxNorm: 645740 1 Tablet(s) PO QD 03/30/2014 09/25/2014 Inactive [AttnRPh: Saving apply/adjudicate RxGRP: SG20 RxBIN:[id number] RxPCN: ID#:[id number]] Cipro 250 mg tablet RxNorm: 041141 1 Tablet(s) PO BID 03/30/201403/24 Inactive [SAVINGS FOR UNINSURED PATIENTS -- BIN:0 44726, PCN: ASPROD1, Group: [id number], ID# [id number], Process claim through MedImpact, for questions: . THIS IS NOT INSURANCE.] Janumet XR 100 mg-1,000 mg tablet,extended release RxNorm: 1 825460 2 Tablet(s) PO QD 01/06/2014 01/05/2014 Inactive [SAVINGS FOR UNI NSURED PATIENTS -- BIN:[id number], PCN: ASPROD1, Group: [id number], ID# [id number], Process claim through MedImp[employer], for questions: . THIS IS NOT INSURANCE.] Janumet XR 100 mg-1,000 mg tablet,extended release RxNorm: 1 434188 1 Tablet(s) PO QD 01/06/2014 04/05/2014 Inactive [SAVINGS FOR UNI NSURED PATIENTS -- BIN:909993, PCN: ASPROD1, Group: [id number], ID# [id number], Process claim through MedImp[employer], for questions: . THIS IS NOT INSURANCE.] propranolol 60 mg tablet RxNorm: 301124 1 Tablet(s) PO QD 12/28/2013 07/26/2014 Inactive [AttnRPh: Saving apply/adjudicate RxGRP: SG20 RxBIN:[id number] RxPCN: ID#:[id number]] Synthroid 150 mcg tablet RxNorm: 734497 1 Tablet(s) PO QD brand onl y 12/28/2013 04/20/2014 Inactive [AttnRPh: Saving apply/adjud icate RxGRP:SG20 RxBIN:[id number] RxPCN:HT ID#:[id number]] Vitamin D2 50,000 unit capsule RxNorm: 074803 1 Capsule (s) PO Take 1 capsule by mouth twice weekly 12/02/2013 05/17/2014 Inactive Lipitor 80 mg tablet RxNorm: 498983 1 Tablet(s) PO QD 11/24/201305/25 Inactive [AttnRPh: Saving apply/adjudicate RxGRP: SG20 RxBIN:[id number] RxPCN:HT ID#:[id number]] loratadine 10 mg tablet RxNorm: 016179 1 Tablet(s) PO BID 11/17/2013 07/12/2014 Inactive fluoxetine 20 mg capsule RxNorm: 856230 1 Capsule(s) PO QAM TAKE ONE CAPSULE BY MOUTH ONCE DAILY IN THE MORNING. 11/04/2013 01/10/2015 Inactive Generic For:PROZAC 20MG Generic For:PROZAC 20MG 06/23/2013 11:55:55 AM [AttnRPh: Saving apply/adjudicate RxGRP:SG20 RxBIN:[id number] RxPCN:HT ID#:[id number]] Vytorin 10 mg-80 mg tablet RxNorm: 9196951 Tablet(s) PO TAKE ONE TABLET BY MOUTH ONCE DAILY IN THE EVENING. 09/30/2013 11/23/2013 Inactive Trilipix 135 mg capsule,delayed release RxNorm: 550284 1 Capsul e(s) PO QD 07/15/2013 04/21/2014 Inactive may do 90 day fill i f desired Voltaren 1 % topical gel RxNorm: 675564 TOP BID 07/15/2013 4 Inactive Apply to affected areas 2-3 times daily as needed. Wellbutrin XL 300 mg 24 hr tablet, extended release RxNorm: 441091 1 Tablet(s) PO QAM 06/29/2013 04/03/2017 Inactive fluoxetine 20 mg capsule RxNorm: 491135 1 Capsule(s) PO QAM TAKE ONE CAPSULE BY MOUTH ONCE DAILY IN THE MORNING. 06/29/2013 11/04/2013 Inactive Generic For:PROZAC 20MG Generic For:PROZAC 20MG 06/23/2013 11:55:55 AM fluoxetine 20 mg capsule RxNorm: 774656 Capsule(s) PO T BRIA ONE CAPSULE BY MOUTH ONCE DAILY IN THE MORNING. 06/23/2013 06/28/2013 Inactive Gener ic For:PROZAC 20MG Generic For:PROZAC 20MG 06/23/2013 11:55:55 AM Synthroid 150 mcg tablet RxNorm: 486840 1 Tablet(s) PO QD brand onl y 06/08/2013 12/04/2013 Inactive Vytorin 10 mg-80 mg tablet RxNorm: 5602636 1 Tablet(s) PO QD 201209/05/2013 Inactive TAKE 1 TABLET BY MOUTH DAILY propranolol 60 mg tablet RxNorm: 924097 1 Tablet(s) PO QD 06/08/2013 12/04/2013 Inactive Pepcid 20 mg tablet RxNorm: 748172 Tablet(s) PO TAKE 1 TABLET BY MOUTH TWICE DAILY. 06/04/2013 11/23/2013 Inactive fluoxetine 20 mg capsule RxNorm: 653013 1 Capsule(s) PO QAM 013 06/22/2013 Inactive Wellbutrin XL 300 mg 24 hr tablet, extended release RxNorm: 106275 1 Tablet(s) PO QAM 05/26/2013 06/28/2013 Inactive Wellbutrin XL 150 mg 24 hr tablet, extended release RxNorm: 150198 1 Tablet(s) PO QD 05/15/2013 05/25/2013 Inactive Wellbutrin XL 150 mg 24 hr tablet, extended release RxNorm: 438906 1 Tablet(s) PO QD 05/15/2013 05/14/2013 Inactive Kombiglyze XR 5 mg-500 mg tablet,extended release RxNorm: 10 17522 1 Tablet(s) PO QD 05/07/2013 05/15/2013 Inactive cefdinir 300 mg capsule RxNorm: 896781 2 Capsule(s) PO QD 04/23/2013 05/02/2013 Inactive AttnRPh: Saving apply/adjudicate RxGRP:S G20 RxBIN:[id number] RxPCN: ID#:[id number] Pepcid 20 mg tablet RxNorm: 649109 Tablet(s) PO TAKE 1 TABLET BY MOUTH TWICE DAILY. 04/17/2013 06/13/2016 Inactive Pepcid 20 mg tablet RxNorm: 508711 1 Tablet(s) PO BID 04/06/201305/24 Inactive Vytorin 10-80 10 mg-80 mg tablet RxNorm: 222569 1 Tablet(s) PO QD 0 02/19/2013 06/08/2013 Inactive TAKE 1 TABLET BY MOUTH DAILY loratadine 10 mg tablet RxNorm: 435506 1 Tablet(s) PO BID 01/23/2013 07/21/2013 Inactive Synthroid 150 mcg tablet RxNorm: 034038 1 Tablet(s) PO QD brand onl y 12/02/2012 06/08/2013 Inactive propranolol 60 mg tablet RxNorm: 596871 1 Tablet(s) PO QD 12/02/2012 06/08/2013 Inactive Trilipix 135 mg capsule,delayed release RxNorm: 015619 1 Capsul e(s) PO QD 12/02/2012 05/30/2013 Inactive may do 90 day fill i f desired Pepcid 20 mg tablet RxNorm: 424698 1 Tablet(s) PO BID 11/27/201203/24 Inactive Effexor XR 150 mg capsule,extended release RxNorm: 271500 1 Cap kimi(s) PO QD 11/24/2012 05/14/2013 Inactive Vytorin 10-80 10 mg-80 mg tablet RxNorm: 883761 1 Tablet(s) PO QD 0 11/24/2012 2013 Inactive TAKE 1 TABLET BY MOUTH DAILY Vytorin 10-80 10 mg-80 mg tablet RxNorm: 794408 1 Tablet(s) PO QD 0 11/21/2012 11/24/2012 Inactive TAKE 1 TABLET BY MOUTH DAILY Effexor XR 150 mg capsule,extended release RxNorm: 404042 1 Cap kimi(s) PO QD 11/21/2012 11/24/2012 Inactive loratadine 10 mg tablet RxNorm: 3701098 1 Tablet(s) PO BID 11/12/19 13 01/23/2013 Inactive Vytorin 10-80 10 mg-80 mg tablet RxNorm: 773508 Tablet( s) PO TAKE 1 TABLET BY MOUTH ONCE DAILY. 10/15/2012 11/21/2012 Inactive Vytorin 10-80 10 mg-80 mg tablet RxNorm: 730149 1 Tablet(s) PO QD 0 10/15/2012 11/20/2012 Inactive TAKE 1 TABLET BY MOUTH DAILY Effexor XR 150 mg capsule,extended release RxNorm: 374303 1 Cap kimi(s) PO QD 10/15/2012 11/20/2012 Inactive Effexor XR 150 mg capsule,extended release RxNorm: 218266 Capsule(s) PO TAKE 1 CAPSULE BY MOUTH ONCE DAILY 10/15/2012 11/21/2012 Inactive azithromycin 250 mg tablet RxNorm: 082895 2 Tablet(s) PO QD 013 09/10/2012 Inactive Culturelle 10 billion cell capsule RxNorm: 479613 1 Cap kimi(s) PO BID for diarrhea maintenance 09/03/2012 10/02/2012 Inactive Medrol (Isaiah) 4 mg tablets in a dose pack RxNorm: 425371 Tablet(s) PO as directed 09/03/2012 07/11/2011 Active as directed Culturelle 10 billion cell capsule RxNorm: 577705 1 Capsule(s) PO BID 07/23/2012 08/21/2012 Inactive Vitamin D2 50,000 unit capsule RxNorm: 146140 Capsule(s ) PO TAKE 1 CAPSULE EVERY DAY SATURDAY THRU Saturday07/09/2012 08/20/2013 Inactive Vitamin D2 50,000 unit capsule RxNorm: 3460959 Capsule(s ) PO TAKE 1 CAPSULE EVERY DAY SATURDAY THRU Saturday07/07/2012 07/08/2012 Inactive Vitamin D2 50,000 unit capsule RxNorm: 9401941 Capsule(s ) PO TAKE 1 CAPSULE EVERY DAY SATURDAY THRU Saturday07/07/2012 07/06/2012 Inactive Vitamin D2 50,000 unit capsule RxNorm: 0950380 Capsule(s ) PO TAKE 1 CAPSULE EVERY DAY SATURDAY THRU Saturday06/27/2012 07/06/2012 Inactive Synthroid 150 mcg tablet RxNorm: 567317 1 Tablet(s) PO QD brand onl y 06/09/2012 12/02/2012 Inactive metformin 1,000 mg tablet RxNorm: 856908 1 Tablet(s) PO BID rep laces 500mg dose 05/20/2012 11/10/2012 Inactive propranolol 60 mg tablet RxNorm: 391949 1 Tablet(s) PO QD 04/23/2012 12/02/2012 Inactive Effexor XR 150 mg capsule,extended release RxNorm: 840692 1 Cap kimi(s) PO QD 04/04/2012 09/30/2012 Inactive Zyrtec 10 mg tablet RxNorm: 9500209 1 Tablet(s) PO QD 04/04/201203/24 Inactive Trilipix 135 mg capsule,delayed release RxNorm: 832526 1 Capsul e(s) PO QD 03/19/2012 12/02/2012 Inactive may do 90 day fill i f desired Vytorin 10-80 10 mg-80 mg tablet RxNorm: 125528 1 Tablet(s) PO QD 0 01/31/2012 07/28/2012 Inactive TAKE 1 TABLET BY MOUTH DAILY Voltaren 1 % topical gel RxNorm: 540704 TOP BID 01/25/2012 4 Inactive Apply to affected areas 2-3 times daily as needed. Synthroid 150 mcg tablet RxNorm: 959639 1 Tablet(s) PO QD brand onl y 01/02/2012 06/09/2012 Inactive metformin ER 1,000 mg 24 hr Tab Ctrl Rel RxNorm: 692695 1 Table t(s) PO QD 01/02/2012 05/19/2012 Inactive metformin ER 500 mg 24 hr Tab RxNorm: 542877 Tablet(s) PO 12/21/2011 01/01/2012 Inactive TAKE 1 TABLET BY MOUTH ONCE DAILY. Voltaren 1 % Topical Gel RxNorm: 857898 TOP BID 11/28/2011 2 Inactive Apply to affected areas 2-3 times daily as needed. propranolol 60 mg tablet RxNorm: 136442 1 Tablet(s) PO QD 10/17/2011 04/23/2012 Inactive Effexor XR 150 mg capsule,extended release RxNorm: 982075 1 Cap kimi(s) PO QD 09/13/2011 04/04/2012 Inactive Medrol (Isaiah) 4 mg tablets in a dose pack RxNorm: 122121 Tablet(s) PO as directed 09/04/2011 07/11/2011 Active as directed doxycycline hyclate 100 mg Tab RxNorm: 6398272 1 Tablet(s) PO BID 0 09/04/2011 09/13/2011 Inactive doxycycline monohydrate 100 mg Tab RxNorm: 5985494 1 Tablet(s) P O BID 07/25/2011 08/03/2011 Inactive prednisone 10 mg Tab RxNorm: 583725 1 Tablet(s) PO TID 07/25/201112/2011 Inactive Synthroid 150 mcg Tab RxNorm: 741497 1 Tablet(s) PO QD brand only 0 07/12/2011 01/02/2012 Inactive Vytorin 10-80 10 mg-80 mg Tab RxNorm: 376927 1 Tablet(s) PO QD 05/2601/31/2012 Inactive TAKE 1 TABLET BY MOUTH DAILY Vitamin D2 50,000 unit capsule RxNorm: 2080024 1 Capsule(s) PO Q D M-F 05/15/2011 06/26/2012 Inactive TAKE 1 CAPSULE BY [facility] DAILY SATURDAY THROUGH FRIDAYS Synthroid 150 mcg Tab RxNorm: 772236 1 Tablet(s) PO QD brand only 1 07/09/2010 07/11/2011 Inactive doxycycline monohydrate 100 mg Tab RxNorm: 9770992 1 Tablet(s) P O BID 04/25/2011 05/04/2011 Inactive Trilipix 135 mg capsule,delayed release RxNorm: 629985 1 Capsul e(s) PO QD 04/23/2011 03/19/2012 Inactive cefdinir 300 mg Cap RxNorm: 850818 1 Capsule(s) PO BID 04/04/2011 Inactive propranolol 60 mg Tab RxNorm: 592922 1 Tablet(s) PO QD 03/26/2011 Inactive Ultram 50 mg Tab RxNorm: 190229 1-2 Tablet(s) PO QID 03/22/201103/21 Active prn pain metformin ER 500 mg 24 hr Tab RxNorm: 315658 1 Tablet(s) PO QD 06/201006/21/2011 Inactive Synthroid 150 mcg Tab RxNorm: 885644 1 Tablet(s) PO QD 02/22/201112/2010 Inactive Vytorin 10-80 10 mg-80 mg Tab RxNorm: 778611 1 Tablet(s) PO QD 01/2303/13/2011 Inactive TAKE 1 TABLET BY MOUTH DAILY Trilipix 135 mg Cap RxNorm: 230803 1 Capsule(s) PO QD 01/10/201103/26 Inactive Effexor XR 150 mg 24 hr Cap RxNorm: 331354 1 Capsule(s) PO QD 01/0908/06/2011 Inactive Vitamin D 50,000 unit Cap RxNorm: 7065160 Capsule(s) PO 12/20/2010 Inactive TAKE 1 CAPSULE BY MOUTH DAILY Fridays Septra DS 800 mg-160 mg Tab RxNorm: 625849 1 Tablet(s) PO BID 12/0712/16/2010 Inactive mupirocin 2 % Ointment RxNorm: 234831 1 Application TOP BID Apply to affected area twice daily 12/07/2010 12/13/2010 Inactive Trilipix 135 mg Cap RxNorm: 710391 1 Capsule(s) PO QD 10/16/201003/26 Inactive Synthroid 150 mcg Tab RxNorm: 351825 1 Tablet(s) PO QD 10/09/201006/2010 Inactive metformin ER 500 mg 24 hr Tab RxNorm: 152493 1 Tablet(s) PO QD 09/2202/22/2011 Inactive Nexium 40 mg Cap RxNorm: 666718 1 Capsule(s) PO QD 10/05/2010 019 Inactive Vytorin 10-80 10 mg-80 mg Tab RxNorm: 452404 1 Tablet(s) PO QD 09/201002/12/2011 Inactive propranolol 60 mg Tab RxNorm: 257697 1 Tablet(s) PO QD 09/18/201008/2010 Inactive Synthroid 125 mcg Tab RxNorm: 229121 1 Tablet(s) PO QD 08/07/2010 Inactive Synthroid 125 mcg Tab RxNorm: 701007 1 Tablet(s) PO QD 08/07/2010 Inactive Voltaren 1 % Topical Gel RxNorm: 348763 TOP BID Apply t o affected areas 2-3 times daily as needed. 08/01/2010 11/28/2011 Inactive Voltaren 1 % Topical Gel RxNorm: 628831 TOP BID Apply t o affected areas 2-3 times daily as needed. 07/04/2010 07/31/2010 Inactive Advair Diskus 250 mcg-50 mcg/dose for Inhalation RxNorm: 135 9859 1 Puff(s) INH Q12H 07/04/2010 07/11/2011 Inactive Effexor XR 150 mg 24 hr Cap RxNorm: 594336 1 Capsule(s) PO QD 06/0801/03/2011 Inactive Synthroid 100 mcg Tab RxNorm: 352198 1 Tablet(s) PO QD 06/06/2010 Inactive Vitamin D 50,000 unit Cap RxNorm: 0175644 1 Capsule(s) PO QD M-F 05/15/2011 Inactive Synthroid 150 mcg Tab RxNorm: 600591 1 Tablet(s) PO 05/25/20102010 Inactive Vytorin 10-80 10 mg-80 mg Tab RxNorm: 725863 1 Tablet(s) PO QD 04/2509/25/2010 Inactive Trilipix 135 mg Cap RxNorm: 285435 1 Capsule(s) PO QD 04/17/201009/23 Inactive propranolol 60 mg Tab RxNorm: 273586 1 Tablet(s) PO QD 01/09/2010 Inactive Advair Diskus 250 mcg-50 mcg/dose for Inhalation RxNorm: 135 9859 1 Puff(s) INH Q12H 12/26/2009 07/04/2010 Inactive Advair Diskus 250 mcg-50 mcg/Dose for Inhalation RxNorm: 135 9859 1 Puff(s) INH Q12H 11/26/2009 12/25/2009 Inactive Synthroid 200 mcg Tab RxNorm: 381907 1 Tablet(s) PO QD 11/24/2009 Inactive Effexor XR 150 mg 24 hr Cap RxNorm: 801302 1 Capsule(s) PO QD 10/2705/24/2010 Inactive Lisinopril 10 mg Tab RxNorm: 199548 1 Tablet(s) PO QD 10/17/200909/23 Inactive Propranolol 60 mg Tab RxNorm: 045286 1 Tablet(s) PO QD 10/17/2009 Inactive Septra DS 160 mg-800 mg Tab RxNorm: 189439 1 Tablet(s) PO BID 10/0410/08/2009 Inactive Mupirocin 2 % Ointment RxNorm: 392727 TOP Q6-8H 10/04/2009 10/10/2009 Inactive Voltaren 1 % Topical Gel RxNorm: 579825 TOP BID Apply t o affected areas 2-3 times daily as needed. 09/21/2009 03/19/2010 Inactive Trilipix 135 mg Cap RxNorm: 632952 1 Capsule(s) PO QD 09/20/200902/23 Inactive Nexium 40 mg Cap RxNorm: 273730 1 Capsule(s) PO QD 09/19/2009 010 Inactive Tylenol Arthritis 650 mg Tab RxNorm: 1774029 2 Tablet(s) PO BID 09/21 Active Vitamin D3 5,000 unit tablet RxNorm: 508339 1 Tablet(s) PO QD 019 Active Synthroid 150 mcg tablet RxNorm: 183975 1 Tablet(s) PO QD 01/12/2015 01/11/2015 Inactive Synthroid 150 mcg tablet RxNorm: 839814 1 Tablet(s) PO Saturday and Saturday01/16/2018 01/15/2018 Inactive Vitamin D 2,000 unit Cap RxNorm: 1 Capsule(s) PO QD 01/30/201002/2010 Inactive Flexeril 5 mg tablet RxNorm: 789311 /2 to 1 Tablet(s) PO TID as needed for muscle spasm 06/10/2017 06/09/2017 Inactive Medrol (Isaiah) 4 mg Tabs in a Dose Pack RxNorm: 611535 Tablet(s) PO 0 09/04/2011 07/11/2011 Inactive as directed fenofibrate micronized 134 mg capsule RxNorm: 743970 1 Capsule( s) PO QD 06/03/2017 06/02/2017 Inactive Vitamin D2 50,000 unit capsule RxNorm: 386910 Capsule(s ) PO Take 1 capsule by mouth twice weekly 12/02/2013 12/01/2013 Inactive prednisone 20 mg tablet RxNorm: 634733 1 Tablet(s) PO BID 03/30/2014 03/29/2014 Inactive AttnRPh: Saving apply/adjudicate RxGRP:S G20 RxBIN:[id number] RxPCN: ID#:[id number]: Saving apply/adjudicate RxGRP:SG20 RxBIN:[id number] RxPCN: ID#:[id number] Soma 350 mg tablet RxNorm: 197245 1 Tablet(s) PO TID prn spasm 01/2310/08/2010 Inactive Lancets,Ultra Thin RxNorm: Miscellaneous Use to test blood sugar daily and as needed (Dx: E11.65) 02/28/2018 02/27/2018 Inactive pantoprazole 40 mg tablet,delayed release RxNorm: 249725 1 Tabl et(s) PO QD 08/21/2017 08/20/2017 Inactive Janumet XR 100 mg-1,000 mg tablet,extended release RxNorm: 1 608577 2 Tablet(s) PO QD 01/06/2014 01/05/2014 Inactive Contour Meter RxNorm: miscellaneous 02/27/2018 02/26/2018 Inactive Synthroid 200 mcg Tab RxNorm: 946415 1 Tablet(s) PO QD 11/24/200907/2009 Inactive Kombiglyze XR 5 mg-500 mg tablet,extended release RxNorm: 10 64573 1 Tablet(s) PO QD 05/07/2013 05/06/2013 Inactive Zithromax Z-Isaiah 250 mg tablet RxNorm: 551809 Tablet(s) PO as di rected 05/14/2013 05/13/2013 Inactive AttnRPh: Saving appl y/adjudicate RxGRP:SG20 RxBIN:[id number] RxPCN: ID#:[id number] Fish Oil 1,000 mg capsule RxNorm: 3 Capsule(s) PO QD 04/04/2017 Inactive Lasix Oral RxNorm: Oral 03/30/2014 03/29/2014 Inactive loratadine 10 mg tablet RxNorm: 717947 1 Tablet(s) PO QD 08/20/2017 0 08/19/2017 Inactive Vitamin D 5,000 unit Tab RxNorm: 1 Tablet(s) PO twice a week 1 08/07/2009 06/05/2010 Inactive permethrin 5 % Topical Cream RxNorm: 426383 TOP Use as directed 02/03/2013 Inactive Gabapentin 100 mg Tab RxNorm: 975028 1 Tablet(s) PO BID 04/12/2010 Inactive Voltaren 1 % topical gel RxNorm: 030522 TOP as needed 06/23/201805/26 Inactive Gabapentin 300 mg Cap RxNorm: 123222 1 Capsule(s) PO BID 07/12/2011 0 07/11/2011 Inactive Contour Test Strips RxNorm: Miscellaneous Test blood sug ar daily (Dx: E11.65) 02/28/2018 02/27/2018 Inactive Promethazine 25 mg Tab RxNorm: 433961 1 Tablet(s) PO Q6 -8H As needed for nausea and vomiting. 10/09/2010 10/08/2010 Inactive propranolol 20 mg tablet RxNorm: 433600 1 Tablet(s) PO BID 03/17/20 18 03/16/2018 Inactive Vitamin D 50,000 unit Cap RxNorm: 8555057 Capsule(s) PO 2 weekly 06/05/2010 Inactive Synthroid 175 mcg Tab RxNorm: 438317 1 Tablet(s) PO QD 07/12/2011 Inactive triamcinolone acetonide 0.1 % Ointment RxNorm: 9851505 T OP TID apply three times a day (sparingly) as needed for itching 04/04/2017 04/03/2017 Inactive Ultram 50 mg Tab RxNorm: 577489 1-2 Tablet(s) PO QID prn pain 03/2203/22/2011 Inactive Topamax 100 mg Tab RxNorm: 501254 1 Tablet(s) PO BID 10/04/200910/03 Inactive Vitamin D3 1000 units Capsule RxNorm: 3 Capsule(s) PO QD 0 06/05/2010 Inactive Singulair 10 mg tablet RxNorm: 069324 1 Tablet(s) PO QD 06/23/2018 Inactive Medication [...] Code Item Item Code Result Date S [facility] Location SARS-CoV2 9079001 SARS-CoV2 PCR Detected 07/08/2021 Unkno wn GFR CALC 2986571 GFR Non Afr Amr >60 mL/min 01/26/2019 Un known GFR CALC 1984518 GFR Afr Amr >60 mL/min 01/26/2019 Unknow n COMPLETE BLOOD COUNT [id number] WBC 7.0 10e9/L 01/27/20 19 Unknown COMPLETE BLOOD COUNT 3469530 RBC 4.52 10e12/L 2018 Unknown COMPLETE BLOOD COUNT 0469501 HEMOGLOBIN 14.0 g/dL 01/27/20 19 Unknown COMPLETE BLOOD COUNT 8015655 HEMATOCRIT 42.6 % 01/27/20 19 Unknown COMPLETE BLOOD COUNT 3777024 MCV 94.2 fL 9 Unknown COMPLETE BLOOD COUNT 5316074 MCH 31.0 pg 9 Unknown COMPLETE BLOOD COUNT 8178490 MCHC 32.9 g/dL 9 Unknown COMPLETE BLOOD COUNT 9671184 PLATELET COUNT 272 10e9/L 10/2018 Unknown COMPLETE BLOOD COUNT 7700657 Mean Plt Volume 10.4 fL 10/2018 Unknown COMPLETE BLOOD COUNT 0209846 Neut Auto 53.9 % 9 Unknown COMPLETE BLOOD COUNT 9650878 Lymph Auto 33.8 % 01/27/20 19 Unknown COMPLETE BLOOD COUNT 1030019 [place] Auto 9.1 % 9 Unknown COMPLETE BLOOD COUNT 1438726 RDW 13.2 % 9 Unknown COMPLETE BLOOD COUNT 6569831 Eos Auto 2.3 % 9 Unknown COMPLETE BLOOD COUNT 1461386 Baso Auto 0.9 % 9 Unknown COMPLETE BLOOD COUNT 5225914 Neutrophil Abs 3.77 10e9/L Unknown COMPLETE BLOOD COUNT 0778789 Lymphocyte Abs 2.37 10e9/L Unknown COMPLETE BLOOD COUNT 9540744 Monocyte Abs 0.64 10e9/L 10/2018 Unknown COMPLETE BLOOD COUNT 0214990 Eosinophil Abs 0.16 10e9/L Unknown COMPLETE BLOOD COUNT 4918804 RDW-SD 44.2 fL 9 Unknown COMPLETE BLOOD COUNT 2284691 Basophil Abs 0.06 10e9/L 10/2018 Unknown COMPREHENSIVE METABOLIC 04934 AST 15 U/L 2018 Unknown COMPREHENSIVE METABOLIC 34615 ALT 18 U/L 2018 Unknown COMPREHENSIVE METABOLIC 54339 BUN 10 mg/dL 2018 Unknown COMPREHENSIVE METABOLIC 12928 ALBUMIN 4.1 g/dL 2018 Unknown COMPREHENSIVE METABOLIC 56575 CHLORIDE 100 mmol/L 01/26 Unknown COMPREHENSIVE METABOLIC 29622 Bili Total 0.4 mg/dL 01/26 Unknown COMPREHENSIVE METABOLIC 58468 ALK PHOS 57 U/L 2018 Unknown COMPREHENSIVE METABOLIC 74751 SODIUM 136 mmol/L 01/26 Unknown COMPREHENSIVE METABOLIC 53187 CREATININE 0.71 mg/dL 10/2018 Unknown COMPREHENSIVE METABOLIC 62912 CALCIUM 9.3 mg/dL 2018 Unknown COMPREHENSIVE METABOLIC 43597 POTASSIUM 4.4 mmol/L 01/26 Unknown COMPREHENSIVE METABOLIC 13832 Total Protein 6.7 g/dL Unknown COMPREHENSIVE METABOLIC 63471 Glucose 88 mg/dL 2018 Unknown COMPREHENSIVE METABOLIC 39891 Bicarbonate 27 mmol/L 10/2018 Unknown COMPREHENSIVE METABOLIC 43380 AGAP 9 mmol/L 2018 Unknown Procedures Procedure Codes Date RML URINE CULTURE/ COLONY COUNT CPT-4: 55591 06/29/19 23 THER/PROPH/DIAG INJ SC/IM CPT-4: 22198 04/18/2022 KETOROLAC TROMETHAMINE INJ CPT-4: J1885 04/18/2022 FLU 64 + VACC AIIV4 NO PRSRV 0.5ML IM CPT-4: 67315 ADMIN INFLUENZA VIRUS VAC CPT-4: G0008 04/05/2022 PPPS, subseq visit CPT-4: G0439 02/06/2022 DEXAMETHASONE SODIUM PHOS CPT-4: J1100 11/09/2021 THER/PROPH/DIAG INJ SC/IM CPT-4: 69537 11/09/2021 TRIAMCINOLONE ACET INJ NOS CPT-4: J3301 11/09/2021 CEFTRIAXONE SODIUM INJECTION CPT-4: J0696 10/30/2021 THER/PROPH/DIAG INJ SC/IM CPT-4: 15118 10/30/2021 INFLUENZA ASSAY W/OPTIC CPT-4: 52560 10/30/2021 THER/PROPH/DIAG INJ SC/IM CPT-4: 18871 09/05/2021 TRIAMCINOLONE ACET INJ NOS CPT-4: J3301 09/05/2021 INFLUENZA ASSAY W/OPTIC CPT-4: 71441 07/04/2021 SARS-CoV2 CPT-4: 5384684 07/04/2021 FLU VACC PRSV FREE INC ANTIG 65 AND OLDER CPT-4: 41688 03/29/2021 FLU VACC PRSV FREE INC ANTIG 65 AND OLDER CPT-4: 07304 03/29/2021 ADMIN INFLUENZA VIRUS VAC CPT-4: G0008 03/29/2021 DRAINAGE OF SKIN ABSCESS CPT-4: 58817 02/08/2021 PPPS, subseq visit CPT-4: G0439 01/03/2021 OCCULT BLOOD FECES CPT-4: 26599 07/13/2020 RML URINE CULTURE/ COLONY COUNT CPT-4: 78300 05/17/20 URINALYSIS NONAUTO W/O SCOPE CPT-4: 85460 05/17/2020 CEFTRIAXONE SODIUM INJECTION CPT-4: J0696 03/07/2020 THER/PROPH/DIAG INJ SC/IM CPT-4: 85765 03/07/2020 THER/PROPH/DIAG INJ SC/IM CPT-4: 24764 03/07/2020 METHYLPREDNISOLONE INJECTION CPT-4: J2930 03/07/2020 PPPS, subseq visit CPT-4: G0439 12/21/2019 RML URINE CULTURE/ COLONY COUNT CPT-4: 83851 09/11/19 20 CEFTRIAXONE SODIUM INJECTION CPT-4: J0696 09/08/2019 THER/PROPH/DIAG INJ SC/IM CPT-4: 58219 09/08/2019 THER/PROPH/DIAG INJ SC/IM CPT-4: 52925 09/07/2019 CEFTRIAXONE SODIUM INJECTION CPT-4: J0696 09/07/2019 THER/PROPH/DIAG INJ SC/IM CPT-4: 58019 09/07/2019 URINALYSIS NONAUTO W/O SCOPE CPT-4: 51024 09/02/2019 RML URINE CULTURE/ COLONY COUNT CPT-4: 19242 09/02/19 20 FLU VACC PRSV FREE INC ANTIG 65 AND OLDER CPT-4: 83281 04/15/2019 URINALYSIS NONAUTO W/O SCOPE CPT-4: 89615 04/15/2019 RML URINE CULTURE/ COLONY COUNT CPT-4: 40757 04/15/20 19 ADMIN INFLUENZA VIRUS VAC CPT-4: G0008 04/15/2019 FLU VACC PRSV FREE INC ANTIG 65 AND OLDER CPT-4: 95062 04/15/2019 THER/PROPH/DIAG INJ SC/IM CPT-4: 56616 04/07/2019 TRIAMCINOLONE ACET INJ NOS CPT-4: J3301 04/07/2019 DEXAMETHASONE SODIUM PHOS CPT-4: J1100 04/07/2019 URINALYSIS NONAUTO W/O SCOPE CPT-4: 54475 03/18/2019 RML URINE CULTURE/ COLONY COUNT CPT-4: 93162 03/18/20 19 ROUTINE VENIPUNCTURE CPT-4: 64864 01/26/2019 RML COMPREHEN METABOLIC PANEL CPT-4: 17760 01/26/2019 RML COMPLETE CBC W/AUTO DIFF WBC CPT-4: 29408 019 RML URINE CULTURE/ COLONY COUNT CPT-4: 01517 01/27/20 19 URINALYSIS NONAUTO W/O SCOPE CPT-4: 83976 01/26/2019 THER/PROPH/DIAG INJ SC/IM CPT-4: 40673 01/08/2019 TRIAMCINOLONE ACET INJ NOS CPT-4: J3301 01/08/2019 THER/PROPH/DIAG INJ SC/IM CPT-4: 80371 01/06/2019 METHYLPREDNISOLONE INJECTION CPT-4: J2930 01/06/2019 AIRWAY INHALATION TREATMENT CPT-4: 11909 01/06/2019 RML URINE CULTURE/ COLONY COUNT CPT-4: 51827 01/07/20 19 PPPS, subseq visit CPT-4: G0439 12/11/2018 URINALYSIS NONAUTO W/O SCOPE CPT-4: 12926 12/11/2018 RML URINE CULTURE/ COLONY COUNT CPT-4: 51615 12/12/19 19 CULTURE OTHR SPECIMN AEROBIC CPT-4: 34884 12/11/2018 OCCULT BLOOD FECES CPT-4: 47104 12/11/2018 THER/PROPH/DIAG INJ SC/IM CPT-4: 62600 10/07/2018 TRIAMCINOLONE ACET INJ NOS CPT-4: J3301 10/07/2018 DEXAMETHASONE SODIUM PHOS CPT-4: J1100 10/07/2018 THER/PROPH/DIAG INJ SC/IM CPT-4: 41706 10/16/2017 TRIAMCINOLONE ACET INJ NOS CPT-4: J3301 10/16/2017 THER/PROPH/DIAG INJ SC/IM CPT-4: 51505 10/16/2017 KETOROLAC TROMETHAMINE INJ CPT-4: J1885 10/16/2017 INFLUENZA ASSAY W/OPTIC CPT-4: 18073 07/25/2017 FLU VACC PRSV FREE INC ANTIG 65 AND OLDER CPT-4: 42562 04/04/2017 PNEUMOCOCCAL VACC 23 DANAY IM CPT-4: 49512 04/04/2017 PPPS, subseq visit CPT-4: G0439 04/04/2017 ADMIN INFLUENZA VIRUS VAC CPT-4: G0008 04/04/2017 ADMIN PNEUMOCOCCAL VACCINE CPT-4: G0009 04/04/2017 URINALYSIS NONAUTO W/O SCOPE CPT-4: 35902 06/05/2016 FLU VACC PRSV FREE INC ANTIG 65 AND OLDER CPT-4: 49629 05/01/2016 ADMIN INFLUENZA VIRUS VAC CPT-4: G0008 05/01/2016 URINALYSIS NONAUTO W/O SCOPE CPT-4: 11387 11/08/2015 URINALYSIS NONAUTO W/O SCOPE CPT-4: 46356 03/28/2015 ADMIN INFLUENZA VIRUS VAC CPT-4: G0008 03/28/2015 FLU VACC PRSV FREE INC ANTIG 65 AND OLDER CPT-4: 26640 03/28/2015 PRESCRIP TRANSMIT VIA ERX SY CPT-4: G8553 03/28/2015 PNEUMOCOCCAL VACC 13 DANAY IM CPT-4: 39837 02/08/2015 ADMIN PNEUMOCOCCAL VACCINE CPT-4: G0009 02/08/2015 PRESCRIP TRANSMIT VIA ERX SY CPT-4: G8553 02/08/2015 RML URINE CULTURE/ COLONY COUNT CPT-4: 34935 01/12/20 15 URINALYSIS NONAUTO W/O SCOPE CPT-4: 53797 01/11/2015 PRESCRIP TRANSMIT VIA ERX SY CPT-4: G8553 01/11/2015 PRESCRIP TRANSMIT VIA ERX SY CPT-4: G8553 11/24/2014 URINALYSIS NONAUTO W/O SCOPE CPT-4: 01693 10/27/2014 RML URINE CULTURE/ COLONY COUNT CPT-4: 88510 10/28/19 15 PRESCRIP TRANSMIT VIA ERX SY CPT-4: G8553 10/27/2014 CEFTRIAXONE SODIUM INJECTION CPT-4: J0696 09/23/2014 THER/PROPH/DIAG INJ SC/IM CPT-4: 65512 09/23/2014 URINALYSIS NONAUTO W/O SCOPE CPT-4: 25714 09/23/2014 RML URINE CULTURE/ COLONY COUNT CPT-4: 68263 09/24/19 15 PRESCRIP TRANSMIT VIA ERX SY CPT-4: G8553 09/23/2014 URINALYSIS NONAUTO W/O SCOPE CPT-4: 43021 03/30/2014 RML URINE CULTURE/ COLONY COUNT CPT-4: 42447 03/30/20 14 PRESCRIP TRANSMIT VIA ERX SY CPT-4: G8553 03/30/2014 PRESCRIP TRANSMIT VIA ERX SY CPT-4: G8553 11/24/2013 PRESCRIP TRANSMIT VIA ERX SY CPT-4: G8553 06/29/2013 PRESCRIP TRANSMIT VIA ERX SY CPT-4: G8553 05/26/2013 PRESCRIP TRANSMIT VIA ERX SY CPT-4: G8553 04/23/2013 THER/PROPH/DIAG INJ SC/IM CPT-4: 08254 03/05/2013 KETOROLAC TROMETHAMINE INJ CPT-4: J1885 03/05/2013 PRESCRIP TRANSMIT VIA ERX SY CPT-4: G8553 11/27/2012 PRESCRIP TRANSMIT VIA ERX SY CPT-4: G8553 11/11/2012 PRESCRIP TRANSMIT VIA ERX SY CPT-4: G8553 09/03/2012 PRESCRIP TRANSMIT VIA ERX SY CPT-4: G8553 07/23/2012 PRESCRIP TRANSMIT VIA ERX SY CPT-4: G8553 05/20/2012 PRESCRIP TRANSMIT VIA ERX SY CPT-4: G8553 04/04/2012 DESTRUCT PREMALG LESION (Cryosurgery) CPT-4: 81133 PRESCRIP TRANSMIT VIA ERX SY CPT-4: G8553 01/02/2012 PRESCRIP TRANSMIT VIA ERX SY CPT-4: G8553 09/04/2011 URINALYSIS NONAUTO W/O SCOPE CPT-4: 60579 07/31/2011 PRESCRIP TRANSMIT VIA ERX SY CPT-4: G8553 07/12/2011 PRESCRIP TRANSMIT VIA ERX SY CPT-4: G8553 05/09/2011 THER/PROPH/DIAG INJ SC/IM CPT-4: 08822 05/02/2011 KETOROLAC TROMETHAMINE INJ CPT-4: J1885 05/02/2011 PRESCRIP TRANSMIT VIA ERX SY CPT-4: G8553 04/25/2011 CUR TOBACCO NON-USER CPT-4: G8457 04/04/2011 PRESCRIP TRANSMIT VIA ERX SY CPT-4: G8553 04/04/2011 DRAIN/INJECT JOINT/BURSA CPT-4: 48332 03/01/2011 METHYLPREDNISOLONE 40 MG INJ CPT-4: J1030 03/01/2011 TRIAMCINOLONE ACET INJ NOS CPT-4: J3301 03/01/2011 DRAIN/INJECT JOINT/BURSA CPT-4: 87829 01/04/2011 METHYLPREDNISOLONE 40 MG INJ CPT-4: J1030 01/04/2011 TRIAMCINOLONE ACET INJ NOS CPT-4: J3301 01/04/2011 PRESCRIP TRANSMIT VIA ERX SY CPT-4: G8553 12/07/2010 PRESCRIP TRANSMIT VIA ERX SY CPT-4: G8553 10/09/2010 PRESCRIP TRANSMIT VIA ERX SY CPT-4: G8553 06/06/2010 DRAIN/INJECT JOINT/BURSA CPT-4: 10954 04/12/2010 TRIAMCINOLONE ACET INJ NOS CPT-4: J3301 04/12/2010 METHYLPREDNISOLONE 80 MG INJ CPT-4: J1040 04/12/2010 PRESCRIP TRANSMIT VIA ERX SY CPT-4: G8553 03/20/2010 THER/PROPH/DIAG INJ SC/IM CPT-4: 90267 01/30/2010 KETOROLAC TROMETHAMINE INJ CPT-4: J1885 01/30/2010 PRESCRIP TRANSMIT VIA ERX SY CPT-4: G8553 01/30/2010 DRAIN/INJECT JOINT/BURSA CPT-4: 52415 10/26/2009 TRIAMCINOLONE ACET INJ NOS CPT-4: J3301 10/26/2009 METHYLPREDNISOLONE 80 MG INJ CPT-4: J1040 10/26/2009 DRAINAGE OF SKIN ABSCESS CPT-4: 79314 10/04/2009 Vital Signs Date Vital 08/30/2022 Blood Pressure 1: 124/74 Code: 8480-6 Heart Rate 1: 74 bpm Respiratory Rate: 20 bpm SpO2: 96% Temperature: 36.3 (C) / 97.3 (F) We ight: 224 lbs Code: 62376-3 08/07/2022 Blood Pressure 1: 126/74 Code: 8480-6 Heart Rate 1: 73 bpm Respiratory Rate: 20 bpm SpO2: 97% Temperature: 36.2 (C) / 97.1 (F) We ight: 222 lbs Code: 04491-7 06/29/2022 Blood Pressure 1: 132/73 Code: 8480-6 BMI: 36.7 Code: 08306-7 Heart Rate 1: 74 bpm Height: 5'6" Code: 8302-2 SpO2: 96% Temperature: 3 6.4 (C) / 97.6 (F) Weight: 226 lbs Code: 66766-4 05/28/2022 Blood Pressure 1: 129/78 Code: 8480-6 BMI: 37.7 Code: 63614-3 Heart Rate 1: 72 bpm Height: 5'6" Code: 8302-2 SpO2: 95% Temperature: 3 6.2 (C) / 97.1 (F) Weight: 232 lbs Code: 52164-2 05/10/2022 Blood Pressure 1: 133/75 Code: 8480-6 BMI: 38.3 Code: 29655-6 Heart Rate 1: 68 bpm Height: 5'6" Code: 8302-2 SpO2: 98% Temperature: 3 6.2 (C) / 97.1 (F) Weight: 236 lbs Code: 22837-0 04/18/2022 Blood Pressure 1: 118/70 Code: 8480-6 Heart Rate 1: 86 bpm Respiratory Rate: 20 bpm SpO2: 96% Temperature: 36.6 (C) / 97.8 (F) We ight: 238 lbs Code: 43397-6 02/15/2022 Blood Pressure 1: 120/82 Code: 8480-6 Heart Rate 1: 88 bpm Respiratory Rate: 20 bpm SpO2: 98% Temperature: 36.1 (C) / 97.0 (F) We ight: 237 lbs Code: 47968-4 02/06/2022 Blood Pressure 1: 124/80 Code: 8480-6 BMI: 39.4 Code: 27675-6 Heart Rate 1: 76 bpm Height: 5'6" Code: 8302-2 Respiratory Rate: 20 bpm SpO2: 98% Temperature: 36.6 (C) / 97.9 (F) Weight: 242 lbs Code: 31956-2 02/01/2022 Blood Pressure 1: 144/100 Code: 8480-6 Heart Rat e 1: 108 bpm Respiratory Rate: 22 bpm SpO2: 96% Temperature: 36.4 (C) / 97.5 (F) 11/29/2021 Blood Pressure 1: 128/80 Code: 8480-6 Heart Rate 1: 56 bpm Respiratory Rate: 20 bpm SpO2: 97% Temperature: 36.7 (C) / 98.1 (F) We ight: 242 lbs Code: 98066-3 11/22/2021 Blood Pressure 1: 118/80 Code: 8480-6 Heart Rate 1: 84 bpm Respiratory Rate: 20 bpm SpO2: 99% Temperature: 36.3 (C) / 97.4 (F) 11/21/2021 Blood Pressure 1: 132/80 Code: 8480-6 Heart Rate 1: 98 bpm Respiratory Rate: 20 bpm SpO2: 99% Weight: 238 lbs Code: 46525 -7 11/09/2021 Blood Pressure 1: 136/86 Code: 8480-6 Heart Rate 1: 68 bpm Respiratory Rate: 20 bpm SpO2: 95% Temperature: 36.4 (C) / 97.5 (F) We ight: 244 lbs Code: 50439-6 10/31/2021 Blood Pressure 1: 128/80 Code: 8480-6 Heart Rate 1: 80 bpm Respiratory Rate: 28 bpm SpO2: 93% Temperature: 38.0 (C) / 100. 4 (F) 10/30/2021 Blood Pressure 1: 136/82 Code: 8480-6 Heart Rate 1: 120 bpm Respiratory Rate: 24 bpm SpO2: 95% Temperature: 38.0 (C) / 100. 4 (F) 09/05/2021 Blood Pressure 1: 118/84 Code: 8480-6 BMI: 38.5 Code: 36877-7 Heart Rate 1: 72 bpm Height: 5'7" Code: 8302-2 Respiratory Rate: 20 bpm SpO2: 95% Temperature: 36.3 (C) / 97.4 (F) Weight: 246 lbs Code: 10584-8 08/24/2021 Blood Pressure 1: 132/84 Code: 8480-6 Heart Rate 1: 76 bpm Respiratory Rate: 19 bpm SpO2: 98% Temperature: 36.7 (C) / 98.1 (F) We ight: Code: 38382-2 03/01/2021 Blood Pressure 1: 90/52 Code: 8480-6 Heart Rate 1: 66 bpm Respiratory Rate: 22 bpm SpO2: 97% 02/08/2021 Blood Pressure 1: 132/75 Code: 8480-6 Heart Rate 1: 74 bpm Respiratory Rate: 18 bpm SpO2: 98% Temperature: 36.3 (C) / 97.3 (F) We ight: 247 lbs Code: 84027-9 01/19/2021 Blood Pressure 1: 126/76 Code: 8480-6 Heart Rate 1: 76 bpm Respiratory Rate: 20 bpm SpO2: 98% Temperature: 37.1 (C) / 98.8 (F) We ight: 244 lbs Code: 68112-8 01/03/2021 Blood Pressure 1: 124/64 Code: 8480-6 BMI: 38.5 Code: 62750-2 Heart Rate 1: 76 bpm Height: 5'7" Code: 8302-2 Respiratory Rate: 20 bpm SpO2: 96% Temperature: 36.4 (C) / 97.6 (F) Weight: 246 lbs Code: 22031-4 11/29/2020 Blood Pressure 1: 119/68 Code: 8480-6 Heart Rate 1: 73 bpm Respiratory Rate: 20 bpm SpO2: 95% Temperature: 36.1 (C) / 96.9 (F) We ight: 245 lbs Code: 54160-3 09/29/2020 Blood Pressure 1: 136/79 Code: 8480-6 Heart Rate 1: 67 bpm Respiratory Rate: 15 bpm SpO2: 98% Temperature: 36.2 (C) / 97.1 (F) We ight: 237 lbs Code: 88772-6 09/19/2020 Blood Pressure 1: 135/82 Code: 8480-6 Heart Rate 1: 76 bpm Respiratory Rate: 17 bpm SpO2: 96% Temperature: 36.6 (C) / 97.8 (F) We ight: 238 lbs Code: 49628-8 08/10/2020 Blood Pressure 1: 126/82 Code: 8480-6 Heart Rate 1: 60 bpm Respiratory Rate: 20 bpm SpO2: 96% Temperature: 36.3 (C) / 97.3 (F) We ight: 238 lbs Code: 86479-2 08/01/2020 Temperature: 36.6 (C) / 97.8 (F) 07/13/2020 Blood Pressure 1: 132/80 Code: 8480-6 Heart Rate 1: 76 bpm Respiratory Rate: 20 bpm SpO2: 97% Temperature: 36.2 (C) / 97.2 (F) We ight: 228 lbs Code: 07462-7 07/05/2020 Temperature: 35.9 (C) / 96.7 (F) 06/22/2020 Blood Pressure 1: 134/82 Code: 8480-6 Heart Rate 1: 60 bpm Respiratory Rate: 20 bpm SpO2: 96% Temperature: 36.4 (C) / 97.6 (F) We ight: 235 lbs Code: 81231-2 05/17/2020 Blood Pressure 1: 141/72 Code: 8480-6 Heart Rate 1: 78 bpm Respiratory Rate: 16 bpm SpO2: 98% Temperature: 36.3 (C) / 97.3 (F) We ight: 232 lbs Code: 02776-7 03/14/2020 Blood Pressure 1: 126/92 Code: 8480-6 Heart Rate 1: 72 bpm Respiratory Rate: 22 bpm SpO2: 96% Temperature: 36.3 (C) / 97.4 (F) We ight: 225 lbs Code: 88594-3 03/07/2020 Blood Pressure 1: 124/86 Code: 8480-6 Heart Rate 1: 72 bpm Respiratory Rate: 24 bpm SpO2: 93% Temperature: 36.2 (C) / 97.1 (F) We ight: 227 lbs Code: 63342-5 12/21/2019 Blood Pressure 1: 114/72 Code: 8480-6 BMI: 36.2 Code: 52236-8 Heart Rate 1: 60 bpm Height: 5'7" Code: 8302-2 Respiratory Rate: 20 bpm SpO2: 97% Temperature: 36.7 (C) / 98.1 (F) Weight: 231 lbs Code: 13920-1 09/02/2019 Blood Pressure 1: 138/85 Code: 8480-6 Heart Rate 1: 76 bpm Respiratory Rate: 20 bpm SpO2: 96% Temperature: 36.3 (C) / 97.3 (F) We ight: 226 lbs Code: 13820-2 07/09/2019 Blood Pressure 1: 123/63 Code: 8480-6 BMI: 34.9 Code: 32934-1 Heart Rate 1: 64 bpm Height: 5'7" Code: 8302-2 Respiratory Rate: 17 bpm SpO2: 97% Temperature: 37.0 (C) / 98.6 (F) Weight: 223 lbs Code: 58578-7 04/15/2019 Blood Pressure 1: 110/82 Code: 8480-6 Heart Rate 1: 66 bpm SpO2: 98% Temperature: 36.1 (C) / 96.9 (F) Weight: 223 lbs Code: 59853-4 04/07/2019 Blood Pressure 1: 132/80 Code: 8480-6 Heart Rate 1: 68 bpm Temperature: 36.9 (C) / 98.4 (F) Weight: 222 lbs Code: 24643-3 03/25/2019 Blood Pressure 1: 108/70 Code: 8480-6 Heart Rate 1: 64 bpm Respiratory Rate: 20 bpm SpO2: 96% Temperature: 36.2 (C) / 97.2 (F) We ight: 221 lbs Code: 53847-4 03/18/2019 Blood Pressure 1: 138/82 Code: 8480-6 Heart Rate 1: 74 bpm SpO2: 99% Temperature: 36.1 (C) / 96.9 (F) Weight: 223 lbs Code: 89329-4 01/26/2019 Blood Pressure 1: 138/90 Code: 8480-6 Heart Rate 1: 68 bpm SpO2: 96% Temperature: 35.9 (C) / 96.7 (F) Weight: 227 lbs Code: 83396-1 01/08/2019 Blood Pressure 1: 134/78 Code: 8480-6 BMI: 36.8 Code: 06422-2 Heart Rate 1: 76 bpm Height: 5'7" Code: 8302-2 SpO2: 93% Temperature: 3 6.4 (C) / 97.6 (F) Weight: 235 lbs Code: 93057-4 01/06/2019 Blood Pressure 1: 116/80 Code: 8480-6 Heart Rate 1: 72 bpm Respiratory Rate: 20 bpm SpO2: 98% Temperature: 36.5 (C) / 97.7 (F) We ight: 232 lbs Code: 79196-5 12/11/2018 Blood Pressure 1: 120/82 Code: 8480-6 BMI: 36.2 Code: 98085-3 Heart Rate 1: 67 bpm Height: 5'7" Code: 8302-2 Respiratory Rate: 18 bpm SpO2: 96% Temperature: 35.9 (C) / 96.7 (F) Weight: 231 lbs Code: 89858-5 10/30/2018 Blood Pressure 1: 126/82 Code: 8480-6 Heart Rate 1: 80 bpm Respiratory Rate: 20 bpm SpO2: 96% Temperature: 36.8 (C) / 98.3 (F) We ight: 228 lbs Code: 99690-1 10/07/2018 Blood Pressure 1: 130/90 Code: 8480-6 Heart Rate 1: 76 bpm Respiratory Rate: 24 bpm SpO2: 97% Temperature: 36.0 (C) / 96.8 (F) We ight: 229 lbs Code: 64712-7 06/23/2018 Blood Pressure 1: 132/80 Code: 8480-6 Heart Rate 1: 72 bpm Respiratory Rate: 20 bpm SpO2: 98% Temperature: 36.7 (C) / 98.0 (F) We ight: 233 lbs Code: 97244-7 01/16/2018 Blood Pressure 1: 116/82 Code: 8480-6 Heart Rate 1: 72 bpm Respiratory Rate: 20 bpm SpO2: 96% Temperature: 36.9 (C) / 98.5 (F) We ight: 230 lbs Code: 94388-3 10/16/2017 Blood Pressure 1: 116/74 Code: 8480-6 BMI: 35.1 Code: 95907-0 Heart Rate 1: 76 bpm Height: 5'7" Code: 8302-2 Respiratory Rate: 20 bpm SpO2: 98% Temperature: 36.7 (C) / 98.1 (F) Weight: 224 lbs Code: 85998-9 09/12/2017 Blood Pressure 1: 124/78 Code: 8480-6 BMI: 34.6 Code: 01200-0 Heart Rate 1: 84 bpm Height: 5'7" Code: 8302-2 Respiratory Rate: 20 bpm SpO2: 95% Temperature: 36.6 (C) / 97.8 (F) Weight: 221 lbs Code: 45682-8 08/20/2017 Blood Pressure 1: 126/78 Code: 8480-6 Heart Rate 1: 92 bpm Height: 5'7" Code: 8302-2 Respiratory Rate: 20 bpm SpO2: 96% Temperature: 36 .9 (C) / 98.5 (F) 08/13/2017 Blood Pressure 1: 124/80 Code: 8480-6 BMI: 34.8 Code: 53555-1 Heart Rate 1: 80 bpm Height: 5'7" Code: 8302-2 Respiratory Rate: 20 bpm SpO2: 96% Temperature: 36.7 (C) / 98.0 (F) Weight: 222 lbs Code: 34145-0 07/29/2017 Blood Pressure 1: 114/70 Code: 8480-6 BMI: 34.5 Code: 40716-5 Heart Rate 1: 76 bpm Height: 5'7" Code: 8302-2 Respiratory Rate: 20 bpm SpO2: 97% Temperature: 36.9 (C) / 98.4 (F) Weight: 220 lbs Code: 67582-7 07/25/2017 Blood Pressure 1: 142/76 Code: 8480-6 BMI: 34.9 Code: 63219-8 Heart Rate 1: 92 bpm Height: 5'7" Code: 8302-2 Respiratory Rate: 18 bpm SpO2: 96% Temperature: 36.7 (C) / 98.1 (F) Weight: 223 lbs Code: 66277-4 06/10/2017 Blood Pressure 1: 136/82 Code: 8480-6 BMI: 34.3 Code: 73220-5 Heart Rate 1: 68 bpm Height: 5'7" Code: 8302-2 Respiratory Rate: 20 bpm SpO2: 96% Temperature: 36.7 (C) / 98.0 (F) Weight: 219 lbs Code: 17979-3 05/28/2017 Blood Pressure 1: 136/70 Code: 8480-6 BMI: 34.1 Code: 61879-9 Heart Rate 1: 84 bpm Height: 5'7" Code: 8302-2 Respiratory Rate: 20 bpm SpO2: 95% Temperature: 35.9 (C) / 96.6 (F) Weight: 218 lbs Code: 79713-2 04/04/2017 Blood Pressure 1: 122/78 Code: 8480-6 BMI: 33.4 Code: 73749-3 Heart Rate 1: 68 bpm Height: 5'7" Code: 8302-2 Respiratory Rate: 20 bpm SpO2: 96% Temperature: 36.7 (C) / 98.0 (F) Weight: 213 lbs Code: 35966-1 11/28/2016 Blood Pressure 1: 114/82 Code: 8480-6 BMI: 33.7 Code: 87977-7 Heart Rate 1: 72 bpm Height: 5'7" Code: 8302-2 Respiratory Rate: 20 bpm SpO2: 98% Temperature: 36.4 (C) / 97.6 (F) Weight: 215 lbs Code: 03943-8 06/05/2016 Blood Pressure 1: 104/68 Code: 8480-6 BMI: 33.7 Code: 93316-0 Heart Rate 1: 68 bpm Height: 5'7" Code: 8302-2 Respiratory Rate: 20 bpm SpO2: 96% Temperature: 36.8 (C) / 98.2 (F) Weight: 215 lbs Code: 44742-1 11/08/2015 Blood Pressure 1: 122/70 Code: 8480-6 BMI: 33.8 Code: 24585-1 Heart Rate 1: 80 bpm Height: 5'7" Code: 8302-2 Respiratory Rate: 20 bpm Temperatu re: 36.8 (C) / 98.2 (F) Weight: 216 lbs Code: 11130-8 07/19/2015 Blood Pressure 1: 122/70 Code: 8480-6 BMI: 33.0 Code: 78538-1 Heart Rate 1: 80 bpm Height: 5'7" Code: 8302-2 Respiratory Rate: 18 bpm Temperatu re: 35.9 (C) / 96.6 (F) Weight: 211 lbs Code: 03188-5 03/28/2015 Blood Pressure 1: 124/70 Code: 8480-6 BMI: 31.8 Code: 72051-2 Heart Rate 1: 72 bpm Height: 5'7" Code: 8302-2 Respiratory Rate: 20 bpm Temperatu re: 36.8 (C) / 98.2 (F) Weight: 203 lbs Code: 04765-3 02/08/2015 Blood Pressure 1: 98/58 Code: 8480-6 BMI: 32.1 C ode: 66364-2 Heart Rate 1: 84 bpm Height: 5'7" Code: 8302-2 Respiratory Rate: 20 bpm Temperatu re: 36.7 (C) / 98.0 (F) Weight: 205 lbs Code: 50249-8 01/11/2015 Blood Pressure 1: 118/78 Code: 8480-6 BMI: 32.1 Code: 72831-6 Heart Rate 1: 84 bpm Height: 5'7" Code: 8302-2 Respiratory Rate: 20 bpm Temperatu re: 36.6 (C) / 97.9 (F) Weight: 205 lbs Code: 74238-5 11/24/2014 Blood Pressure 1: 124/80 Code: 8480-6 BMI: 32.0 Code: 21393-8 Heart Rate 1: 76 bpm Height: 5'7" Code: 8302-2 Respiratory Rate: 20 bpm Temperatu re: 36.2 (C) / 97.1 (F) Weight: 204 lbs Code: 88672-2 11/19/2014 Blood Pressure 1: 132/78 Code: 8480-6 BMI: 32.7 Code: 45218-3 Heart Rate 1: 68 bpm Height: 5'7" Code: 8302-2 Respiratory Rate: 20 bpm SpO2: 98% Temperature: 36.7 (C) / 98.0 (F) Weight: 209 lbs Code: 78412-3 10/27/2014 Blood Pressure 1: 118/76 Code: 8480-6 BMI: 32.6 Code: 89920-5 Heart Rate 1: 64 bpm Height: 5'7" Code: 8302-2 Respiratory Rate: 20 bpm Temperatu re: 36.7 (C) / 98.0 (F) Weight: 208 lbs Code: 36398-8 09/23/2014 Blood Pressure 1: 118/68 Code: 8480-6 BMI: 34.3 Code: 94784-6 Heart Rate 1: 78 bpm Height: 5'7" Code: 8302-2 Respiratory Rate: 22 bpm Temperatu re: 36.4 (C) / 97.6 (F) Weight: 219 lbs Code: 51174-0 07/28/2014 Blood Pressure 1: 126/80 Code: 8480-6 BMI: 33.5 Code: 01628-3 Heart Rate 1: 76 bpm Height: 5'7" Code: 8302-2 Respiratory Rate: 20 bpm Temperatu re: 36.4 (C) / 97.6 (F) Weight: 214 lbs Code: 04814-0 03/30/2014 Blood Pressure 1: 128/80 Code: 8480-6 BMI: 35.2 Code: 42382-7 Heart Rate 1: 88 bpm Height: 5'7" Code: 8302-2 Respiratory Rate: 20 bpm Temperatu re: 36.4 (C) / 97.6 (F) Weight: 225 lbs Code: 48256-2 11/24/2013 Blood Pressure 1: 124/82 Code: 8480-6 BMI: 35.6 Code: 84193-7 Heart Rate 1: 80 bpm Height: 5'7" Code: 8302-2 Respiratory Rate: 22 bpm Temperatu re: 36.2 (C) / 97.1 (F) Weight: 227 lbs Code: 00603-2 08/25/2013 Blood Pressure 1: 128/80 Code: 8480-6 BMI: 37.4 Code: 97896-3 Heart Rate 1: 76 bpm Height: 5'7" Code: 8302-2 Respiratory Rate: 20 bpm Temperatu re: 36.6 (C) / 97.9 (F) Weight: 239 lbs Code: 84444-1 06/29/2013 Blood Pressure 1: 106/78 Code: 8480-6 BMI: 38.1 Code: 55690-2 Heart Rate 1: 80 bpm Height: 5'7" Code: 8302-2 Respiratory Rate: 20 bpm Temperatu re: 36.6 (C) / 97.9 (F) Weight: 243 lbs Code: 00981-7 05/26/2013 Blood Pressure 1: 122/80 Code: 8480-6 BMI: 39.3 Code: 68252-5 Heart Rate 1: 80 bpm Height: 5'7" Code: 8302-2 Respiratory Rate: 20 bpm Temperatu re: 36.9 (C) / 98.4 (F) Weight: 251 lbs Code: 59642-2 05/06/2013 Blood Pressure 1: 128/78 Code: 8480-6 BMI: 39.2 Code: 55191-6 Heart Rate 1: 76 bpm Height: 5'7" Code: 8302-2 Respiratory Rate: 22 bpm Temperatu re: 35.8 (C) / 96.4 (F) Weight: 250 lbs Code: 03605-0 04/23/2013 Blood Pressure 1: 132/92 Code: 8480-6 BMI: 39.6 Code: 97924-7 Heart Rate 1: 88 bpm Height: 5'7" Code: 8302-2 Respiratory Rate: 28 bpm SpO2: 97% Temperature: 36.5 (C) / 97.7 (F) Weight: 253 lbs Code: 20196-4 03/31/2013 Blood Pressure 1: 122/80 Code: 8480-6 BMI: 39.0 Code: 72263-8 Heart Rate 1: 84 bpm Height: 5'7" Code: 8302-2 Respiratory Rate: 20 bpm Temperatu re: 36.6 (C) / 97.8 (F) Weight: 249 lbs Code: 69503-3 03/05/2013 Blood Pressure 1: 120/80 Code: 8480-6 BMI: 39.2 Code: 88350-5 Heart Rate 1: 60 bpm Height: 5'7" Code: 8302-2 Respiratory Rate: 22 bpm Temperatu re: 35.9 (C) / 96.6 (F) Weight: 250 lbs Code: 66653-4 02/04/2013 Blood Pressure 1: 124/80 Code: 8480-6 BMI: 38.4 Code: 83693-6 Heart Rate 1: 80 bpm Height: 5'7" Code: 8302-2 Respiratory Rate: 20 bpm Temperatu re: 36.4 (C) / 97.6 (F) Weight: 245 lbs Code: 18386-0 11/27/2012 Blood Pressure 1: 127/83 Code: 8480-6 Te mperature: 36.1 (C) / 96.9 (F) Weight: 243 lbs 2 oz Code: 28600-7 11/11/2012 Blood Pressure 1: 126/82 Code: 8480-6 BMI: 37.4 Code: 47542-3 Heart Rate 1: 80 bpm Height: 5'7" Code: 8302-2 Respiratory Rate: 20 bpm Temperatu re: 36.8 (C) / 98.2 (F) Weight: 239 lbs Code: 48452-0 10/20/2012 Blood Pressure 1: 114/80 Code: 8480-6 BMI: 37.1 Code: 59714-2 Heart Rate 1: 104 bpm Height: 5'7" Code: 8302-2 Respiratory Rate: 20 bpm Temperatu re: 36.9 (C) / 98.4 (F) Weight: 237 lbs Code: 43977-7 09/03/2012 Blood Pressure 1: 118/72 Code: 8480-6 BMI: 37.3 Code: 48108-0 Heart Rate 1: 70 bpm Height: 5'7" Code: 8302-2 Temperature: 35.6 (C) / 96.0 (F) Weight: 238 lbs Code: 11008-8 07/23/2012 Blood Pressure 1: 124/78 Code: 8480-6 BMI: 36.8 Code: 11061-3 Heart Rate 1: 68 bpm Height: 5'7" Code: 8302-2 Temperature: 35.6 (C) / 96.0 (F) Weight: 235 lbs Code: 98735-6 05/20/2012 Blood Pressure 1: 112/70 Code: 8480-6 BMI: 37.1 Code: 25714-9 Heart Rate 1: 76 bpm Height: 5'7" Code: 8302-2 Respiratory Rate: 20 bpm Temperatu re: 36.7 (C) / 98.1 (F) Weight: 237 lbs Code: 17317-6 04/04/2012 Blood Pressure 1: 110/64 Code: 8480-6 BMI: 37.1 Code: 89498-7 Heart Rate 1: 68 bpm Height: 5'7" Code: 8302-2 Temperature: 36.1 (C) / 97.0 (F) Weight: 237 lbs Code: 32045-2 02/20/2012 Blood Pressure 1: 136/78 Code: 8480-6 BMI: 37.1 Code: 84666-1 Heart Rate 1: 72 bpm Height: 5'7" Code: 8302-2 Respiratory Rate: 20 bpm Temperatu re: 36.7 (C) / 98.0 (F) Weight: 237 lbs Code: 52356-4 01/02/2012 Blood Pressure 1: 122/70 Code: 8480-6 BMI: 37.1 Code: 81799-8 Heart Rate 1: 76 bpm Height: 5'7" Code: 8302-2 Respiratory Rate: 20 bpm Temperatu re: 37.0 (C) / 98.6 (F) Weight: 237 lbs Code: 64342-9 09/04/2011 Blood Pressure 1: 120/84 Code: 8480-6 BMI: 35.4 Code: 56120-7 Heart Rate 1: 68 bpm Height: 5'7" Code: 8302-2 Temperature: 30.0 (C) / 86.0 (F) Weight: 226 lbs Code: 60288-4 08/14/2011 Blood Pressure 1: 120/82 Code: 8480-6 BMI: 36.5 Code: 84612-2 Heart Rate 1: 80 bpm Height: 5'7" Code: 8302-2 Temperature: 36.6 (C) / 97.8 (F) Weight: 233 lbs Code: 95639-3 07/31/2011 Blood Pressure 1: 138/86 Code: 8480-6 BMI: 37.0 Code: 32904-9 Heart Rate 1: 94 bpm Height: 5'7" Code: 8302-2 Temperature: 35.4 (C) / 95.7 (F) Weight: 236 lbs Code: 51021-4 07/25/2011 Blood Pressure 1: 128/80 Code: 8480-6 BMI: 37.0 Code: 43237-5 Heart Rate 1: 80 bpm Height: 5'7" Code: 8302-2 Temperature: 35.6 (C) / 96.0 (F) Weight: 236 lbs Code: 00309-7 07/12/2011 Blood Pressure 1: 132/80 Code: 8480-6 BMI: 37.0 Code: 50818-1 Heart Rate 1: 96 bpm Height: 5'7" Code: 8302-2 Respiratory Rate: 20 bpm Temperatu re: 36.3 (C) / 97.3 (F) Weight: 236 lbs Code: 25737-6 05/09/2011 Blood Pressure 1: 106/78 Code: 8480-6 BMI: 36.6 Code: 15152-3 Heart Rate 1: 72 bpm Height: 5'7" Code: 8302-2 Respiratory Rate: 20 bpm Temperatu re: 36.4 (C) / 97.6 (F) Weight: 234 lbs Code: 42919-5 05/02/2011 Blood Pressure 1: 96/72 Code: 8480-6 BMI: 36.6 C ode: 71177-5 Heart Rate 1: 108 bpm Height: 5'7" Code: 8302-2 Respiratory Rate: 24 bpm Temperatu re: 36.7 (C) / 98.0 (F) Weight: 234 lbs Code: 42485-7 04/25/2011 Blood Pressure 1: 120/72 Code: 8480-6 BMI: 36.5 Code: 05315-9 Heart Rate 1: 70 bpm Height: 5'7" Code: 8302-2 Temperature: 36.7 (C) / 98.0 (F) Weight: 233 lbs Code: 63852-9 04/04/2011 Blood Pressure 1: 126/92 Code: 8480-6 BMI: 36.5 Code: 55676-6 Heart Rate 1: 84 bpm Height: 5'7" Code: 8302-2 Respiratory Rate: 20 bpm Temperatu re: 36.2 (C) / 97.2 (F) Weight: 233 lbs Code: 76909-2 03/01/2011 Blood Pressure 1: 132/78 Code: 8480-6 Heart Rate 1: 88 bpm Temperature: 36.8 (C) / 98.2 (F) Weight: 231 lbs Code: 81540-2 01/04/2011 Blood Pressure 1: 122/78 Code: 8480-6 BMI: 37.0 Code: 45687-7 Heart Rate 1: 80 bpm Height: 5'7" Code: 8302-2 Temperature: 37.0 (C) / 98.6 (F) Weight: 236 lbs Code: 73322-4 12/07/2010 Blood Pressure 1: 132/92 Code: 8480-6 Heart Rate 1: 98 bpm Temperature: 36.2 (C) / 97.2 (F) Weight: 237 lbs Code: 89998-3 10/09/2010 Blood Pressure 1: 128/80 Code: 8480-6 Heart Rate 1: 72 bpm Temperature: 36.5 (C) / 97.7 (F) Weight: 244 lbs Code: 30195-4 08/07/2010 Blood Pressure 1: 114/80 Code: 8480-6 Heart Rate 1: 72 bpm Temperature: 36.2 (C) / 97.1 (F) Weight: 245 lbs Code: 09994-3 06/06/2010 Blood Pressure 1: 132/86 Code: 8480-6 Heart Rate 1: 80 bpm Temperature: 36.8 (C) / 98.2 (F) Weight: 242 lbs Code: 27969-2 04/12/2010 Blood Pressure 1: 126/82 Code: 8480-6 Heart Rate 1: 72 bpm Temperature: 36.8 (C) / 98.2 (F) Weight: 237 lbs Code: 71683-8 03/20/2010 Blood Pressure 1: 124/78 Code: 8480-6 Heart Rate 1: 76 bpm Temperature: 36.1 (C) / 97.0 (F) Weight: 239 lbs Code: 04242-2 01/30/2010 Blood Pressure 1: 118/80 Code: 8480-6 Heart Rate 1: 84 bpm Temperature: 37.1 (C) / 98.7 (F) Weight: 239 lbs Code: 68960-3 01/09/2010 Blood Pressure 1: 120/72 Code: 8480-6 BMI: 36.8 Code: 77072-8 Heart Rate 1: 80 bpm Height: 5'7" Code: 8302-2 Temperature: 36.1 (C) / 97.0 (F) Weight: 235 lbs Code: 22216-1 11/07/2009 Blood Pressure 1: 140/36 Cod e: 8480-6 10/26/2009 Blood Pressure 1: 126/82 Code: 8480-6 BMI: 36.9 Code: 51619-2 Heart Rate 1: 84 bpm Height: 5'7" Code: 8302-2 Temperature: 36.5 (C) / 97.7 (F) Weight: 234 lbs Code: 58912-5 10/17/2009 Blood Pressure 1: 140/88 Code: 8480-6 BMI: 36.3 Code: 30234-8 Heart Rate 1: 88 bpm Height: 5'7" Code: 8302-2 Temperature: 36.7 (C) / 98.0 (F) Weight: 232 lbs Code: 73557-5 10/04/2009 Blood Pressure 1: 140/90 Code: 8480-6 BMI: 36.3 Code: 71812-7 Heart Rate 1: 84 bpm Height: 5'7" Code: 8302-2 Temperature: 36.4 (C) / 97.6 (F) Weight: 232 lbs Code: 60377-0 09/21/2009 Blood Pressure 1: 136/82 Code: 8480-6 BMI: 36.3 Code: 64566-6 Heart Rate 1: 88 bpm Height: 5'7" Code: 8302-2 Temperature: 35.8 (C) / 96.4 (F) Weight: 232 lbs Code: 87418-4 Functional Status No Functional Status data Reason [...] well woman exam (65+ years) 01/03/2021 Medicare [facility] high blood pressure 01/03/2021 hyperlipidemia 01/03/2021 diabetes [...] 09/04/2011 chest congestion 09/04/2011 follow up 08/14/2011 [facility] cheilitis 08/14/2011 venous thrombosis 08/14/2011 abdominal [...] M51.37] Diagnosis: Cervicalgia[ICD10: M54.2] Marlene MAGANAR DO [facility] [address] [place] [address] CPT-4: 89511 08/30/2022 ([id number]) OFFICE/OUTPATIENT VISIT EST Diagnosis: Hypothyroidism[ICD10: E03.9] Diagnosis: Essential (primary) hypertension[ICD10: I10] Diagnosis: Mixed hyperlipidemia[ICD10: E78.2] Diagnosis: Stress at home[ICD10: F43.9] Jayna VANESSA [address] [address] CPT-4: 68788 08/07/2022 ([id number]) OFFICE/OUTPATIENT VISIT EST Diagnosis: Acute cystitis[ICD10: N30.00] Marlene VANESSA [address] [address] CPT-4: 41593 06/29/2022 ([id number]) OFFICE/OUTPATIENT VISIT EST Diagnosis: Depression[ICD10: F32.A] Diagnosis: Hypothyroidism[ICD10: E03.9] Jayna VANESSA [address] [address] CPT-4: 42521 05/28/2022 ([id number]) OFFICE/OUTPATIENT VISIT EST Diagnosis: Depression[ICD10: F32.A] Diagnosis: Fatigue[ICD10: R53.83] Diagnosis: Hypothyroidism[ICD10: E03.9] Diagnosis: Hyperglycemia[ICD10: R73.9] Jayna Partida [place]AL[place] [address] [address] CPT-4: 79815 05/10/2022 ([id number]) OFFICE/OUTPATIENT VISIT EST Diagnosis: Migraine, intractable[ICD10: G43.919] Marlene VANESSA [address] [address] CPT-4: 52782 04/18/2022 ([id number]) NURSE/OUTPATIENT VISIT EST Diagnosis: FLU VACCINE[ICD10: Z23] Jayna JIANG [address] [address] CPT-4: 28954 04/05/2022 ([id number]) OFFICE/OUTPATIENT VISIT EST Diagnosis: Allergic rhinitis[ICD10: J30.9] Diagnosis: Acute sinusitis[ICD10: J01.90] 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] Jayna VANESSA [address] [address] CPT-4: 60736 02/15/2022 ([id number]) Annual depression screening, 15 minutes Diagnosis: Encounter for general adult medical examination without abnormal findings[ICD10: Z00.00] Diagnosis: Essential (primary) hypertension[ICD10: I10] Diagnosis: Mixed hyperlipidemia[ICD10: E78.2] Diagnosis: Hypothyroidism, unspecified[ICD10: E03.9] Diagnosis: Chronic obstructive pulmonary disease, unspecified[ICD10: J44.9] Jayna VANESSA [address] [address] CPT-4: G0444 02/06/2022 ([id number]) OFFICE/OUTPATIENT VISIT EST Diagnosis: 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] Diagnosis: Vision changes[ICD10: H53.9] Latasha Kika JAYNA VANESSA [address] [address] CPT-4: 96308 02/01/2022 ([id number]) OFFICE/OUTPATIENT VISIT EST Diagnosis: Diarrhea[ICD10: R19.7] Diagnosis: Cough[ICD10: R05.9] Jayna VANESSA [address] [address] CPT-4: 77212 11/30/19 ([id number]) OFFICE/OUTPATIENT VISIT EST Diagnosis: Post-viral cough syndrome[ICD10: R05.8] Diagnosis: Otalgia of both ears[ICD10: H92.03] Diagnosis: Diarrhea[ICD10: R19.7] Jayna Jessicamarialuisa JAYNA Daniel Villalba [address] [address] CPT-4: 91610 11/22/2021 ([id number]) OFFICE/OUTPATIENT VISIT EST Diagnosis: Diarrhea of presumed infectious origin[ICD10: R19.7] Diagnosis: Altered taste[ICD10: R43.2] Diagnosis: Chronic bronchitis[ICD10: J42] Diagnosis: History of recent pneumonia[ICD10: Z87.01] Latasha VANESSA DO [address] [address] CPT- 4: 57522 11/21/2021 ([id number]) OFFICE/OUTPATIENT VISIT EST Diagnosis: Serous otitis media[ICD10: H65.90] Diagnosis: Postnasal drip[ICD10: R09.82] Diagnosis: Pneumonia[ICD10: J18.9] Jayna MORILLOLINE Daniel LOPEZND ER DO [address] [address] CPT-4: 11163 11/09/2021 ([id number]) NO CHARGE Diagnosis: Pneumonia[ICD10: J18.9] Diagnosis: Respiratory distress[ICD10: R06.03] Jaynapilar Vanessa FLAKITO ANNE MARIE Daniel LOPEZNDER DO [address] [address] CPT-4: 03739 10/31/2021 ([id number]) OFFICE/OUTPATIENT VISIT EST Diagnosis: Vertigo[ICD10: R42] Diagnosis: Nausea[ICD10: R11.0] Diagnosis: Pneumonia[ICD10: J18.9] Jayna Jessicaleydaapolinar MORILLOJAYNA Daniel BRUCE ER DO [address] [address] CPT-4: 93965 10/30/2021 ([id number]) OFFICE/OUTPATIENT VISIT EST Diagnosis: Cervicalgia[ICD10: M54.2] Jayna Jessicamarialuisa JAYNA Daniel LOPEZ NDER DO [address] [address] CPT-4: 97316 09/05/2021 ([id number]) OFFICE/OUTPATIENT VISIT EST Diagnosis: 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] Diagnosis: Seronegative rheumatoid arthritis[ICD10: M06.00] Latasha BRUCEER DO [address] [address] CPT- 4: 04239 08/24/2021 ([id number]) OFFICE/OUTPATIENT VISIT EST Diagnosis: Upper respiratory infection[ICD10: J06.9] Diagnosis: Contact with and (suspected) exposure to other viral communicable diseases[ICD10: Z20.828] Latasha VANESSA DO [address] [address] CPT-4: 73225 07/04/2021 ([id number]) NURSE/OUTPATIENT VISIT EST Diagnosis: FLU VACCINE[ICD10: Z23] Jayna JIANG DO [address] [address] CPT-4: 60201 03/29/2021 ([id number]) OFFICE/OUTPATIENT VISIT EST Diagnosis: Vasovagal episode[ICD10: R55] Diagnosis: Orthostatic hypotension[ICD10: I95.1] Latasha VANESSA DO [address] [address] CPT-4: 02748 03/01/2021 ([id number]) OFFICE/OUTPATIENT VISIT EST Diagnosis: Sebaceous cyst of right axilla[ICD10: L72.3] Latasha VANESSA DO [address] [address] CPT- 4: 43827 02/08/2021 ([id number]) OFFICE/OUTPATIENT VISIT EST Diagnosis: Contact dermatitis[ICD10: L25.9] Jayna VANESSA DO [address] [address] CPT-4: 46289 01/19/2021 ([id number]) OFFICE/OUTPATIENT VISIT EST Diagnosis: Upper respiratory infection[ICD10: J06.9] Diagnosis: COPD exacerbation[ICD10: J44.1] Latasha VANESSA DO [address] [address] CPT-4: 67237 11/29/2020 ([id number]) OFFICE/OUTPATIENT VISIT EST Diagnosis: Sinusitis[ICD10: J32.9] Diagnosis: Acute pansinusitis, recurrence not specified[ICD10: J01.40] Latasha VAENSSA [address] [address] CPT-4: 54768 09/29/2020 OFFICE/OUTPATIENT VISIT EST Diagnosis: Other seasonal allergic rhinitis[ICD10: J30.2] Diagnosis: Chronic bronchitis[ICD10: J42] Diagnosis: 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] Diagnosis: Middle ear effusion[ICD10: H65.90] Diagnosis: Fluid level behind tympanic membrane of both ears[ICD10: H65.93] Latasha VANESSA [address] [address] CPT-4: 77125 09/19/2020 ([id number]) OFFICE/OUTPATIENT VISIT EST Diagnosis: Right-sided tinnitus[ICD10: H93.11] Jayna VANESSA [address] [address] CPT-4: 55943 08/10/2020 ([id number]) OFFICE/OUTPATIENT VISIT EST Diagnosis: Dysfunction of right eustachian tube[ICD10: H69.81] Diagnosis: Right-sided tinnitus[ICD10: H93.11] Jayna Bruceapolinar [address] [address] CPT-4: 16459 2020 ([id number]) OFFICE/OUTPATIENT VISIT EST Diagnosis: Pyelonephritis[ICD10: N12] Diagnosis: Anemia[ICD10: D64.9] Diagnosis: Blood in stool[ICD10: K92.1] Jayna VANESSA [address] [address] CPT-4: 79525 07/13/2020 ([id number]) OFFICE/OUTPATIENT VISIT EST Diagnosis: Acute gastroenteritis[ICD10: K52.9] Jayna KENNEY SPaige LOPEZNDER DO [address] [address] CPT-4: 24180 07/05/2020 ([id number]) OFFICE/OUTPATIENT VISIT EST Diagnosis: Essential hypertension[ICD10: I10] Diagnosis: Hypothyroidism, unspecified[ICD10: E03.9] Diagnosis: Metabolic syndrome[ICD10: E88.81] Diagnosis: Mixed hyperlipidemia[ICD10: E78.2] Diagnosis: 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] Jayna LOPEZNDER DO [address] [address] CPT- 4: 85869 06/22/2020 ([id number]) OFFICE/OUTPATIENT VISIT EST Diagnosis: Urinary tract infection[ICD10: N39.0] Jayna LOPEZNDER DO [address] [address] CPT-4: 20846 05/17/2020 ([id number]) OFFICE/OUTPATIENT VISIT EST Diagnosis: Right pulmonary embolus[ICD10: I26.99] Jayna PISANO HerbieBUZZ SPaige LOPEZNDER DO [address] [address] CPT-4: 64365 03/14/2020 ([id number]) OFFICE/OUTPATIENT VISIT EST Diagnosis: COVID-19[ICD10: U07.1] Diagnosis: Pneumonia[ICD10: J18.9] Diagnosis: Dyspnea[ICD10: R06.00] Jayna LOPEZNDE R DO [address] [address] CPT-4: 80499 03/07/2020 ([id number]) OFFICE/OUTPATIENT VISIT EST Diagnosis: Upper respiratory infection[ICD10: J06.9] Genesis MUNOZBUZZ S. ORENDER DO [address] [address] CPT-4: 86632 02/11/2020 ([id number]) OFFICE/OUTPATIENT VISIT EST Diagnosis: Dermatitis[ICD10: L30.9] Diagnosis: Urticaria[ICD10: L50.9] Jayna Vanessa [facility] [address] [place] [address] CPT-4: 83978 09/29/2019 ([id number]) OFFICE/OUTPATIENT VISIT EST Diagnosis: Bone spur of right foot[ICD10: M77.51] Diagnosis: Recurrent UTI[ICD10: N39.0] Diagnosis: MRSA (methicillin resistant staph aureus) culture positive[ICD10: Z22.322] Jayna Vanessa [facility] [address] [place] [address] CPT-4: 16177 09/14/2019 ([id number]) NURSE/OUTPATIENT VISIT EST Diagnosis: Urinary tract infection[ICD10: N39.0] Jayna VANESSA DO [facility] [address] [place] [address] CPT-4: 04257 09/11/2019 ([id number]) NURSE/OUTPATIENT VISIT EST Diagnosis: Urinary tract infection, site not specified[ICD10: N39.0] Jayna LOPEZNDER DO [facility] [address] [place] [address] CPT-4: 93431 09/08/2019 ([id number]) NURSE/OUTPATIENT VISIT EST Diagnosis: Urinary tract infection, site not specified[ICD10: N39.0] Jayna BRUCEER DO [facility] [address] [place] [address] CPT-4: 95168 09/07/2019 ([id number]) OFFICE/OUTPATIENT VISIT EST Diagnosis: Pelvic pain in female[ICD10: R10.2] Diagnosis: Urinary frequency[ICD10: R35.0] Genesis LOPEZNDER DO [facility] [address] [place] [address] CPT-4: 66715 09/02/2019 ([id number]) OFFICE/OUTPATIENT VISIT EST Diagnosis: Sinusitis[ICD10: J32.9] Genesis LOPEZND ER DO [address] [address] CPT-4: 29191 07/09/2019 ([id number]) OFFICE/OUTPATIENT VISIT EST Diagnosis: UTI (urinary tract infection)[ICD10: N39.0] Diagnosis: FLU VACCINE[ICD10: Z23] Genesis BRUCE ER DO [address] [address] CPT-4: 42976 04/15/2019 ([id number]) OFFICE/OUTPATIENT VISIT EST Diagnosis: Pain in right leg[ICD10: M79.604] Genesis BRUCEER DO [address] [address] CPT-4: 24506 04/07/2019 ([id number]) OFFICE/OUTPATIENT VISIT EST Diagnosis: Diverticulitis of large intestine without perforation or abscess without bleeding[ICD10: K57.32] Diagnosis: Cystitis[ICD10: N30.90] Jayna BRUCE ER DO [address] [address] CPT-4: 12654 03/25/2019 ([id number]) OFFICE/OUTPATIENT VISIT EST Diagnosis: Abdominal pain[ICD10: R10.9] Diagnosis: Cystitis[ICD10: N30.90] Jayna BRUCE ER DO [address] [address] CPT-4: 50715 03/18/2019 ([id number]) OFFICE/OUTPATIENT VISIT EST Diagnosis: Diverticulitis of large intestine without perforation or abscess without bleeding[ICD10: K57.32] Diagnosis: Generalized abdominal pain[ICD10: R10.84] Diagnosis: Urinary tract infection, site not specified[ICD10: N39.0] [facility] [address] [place] [address] CPT-4: 18291 01/26/2019 ([id number]) OFFICE/OUTPATIENT VISIT EST Diagnosis: Mild intermittent asthma with (acute) exacerbation[ICD10: J45.21] Diagnosis: Allergic rhinitis due to pollen[ICD10: J30.1] Jayna VANESSA DO [address] [address] CPT- 4: 79706 01/08/2019 ([id number]) OFFICE/OUTPATIENT VISIT EST Diagnosis: Mild intermittent asthma with (acute) exacerbation[ICD10: J45.21] Diagnosis: URI, ACUTE[ICD10: J06.9] Diagnosis: Urinary tract infection, site not specified[ICD10: N39.0] Jayna VANESSA DO [address] [address] CPT-4: 58257 01/06/2019 ([id number]) OFFICE/OUTPATIENT VISIT EST Diagnosis: Benign paroxysmal vertigo, bilateral[ICD10: H81.13] Diagnosis: Migraine without aura, not intractable, without status migrainosus[ICD10: G43.009] Jayna VANESSA DO [address] [address] CPT-4: 42515 10/30/2018 ([id number]) OFFICE/OUTPATIENT VISIT EST Diagnosis: Acute bronchitis, unspecified[ICD10: J20.9] Diagnosis: Cough[ICD10: R05] Diagnosis: Other seasonal allergic rhinitis[ICD10: J30.2] Stacey VANESSA DO [address] [address] CPT- 4: 27125 10/07/2018 ([id number]) OFFICE/OUTPATIENT VISIT EST Diagnosis: Pain in unspecified joint[ICD10: M25.50] Diagnosis: Pain in right ankle and joints of right foot[ICD10: M25.571] Diagnosis: Other specified disorders of bone density and structure, unspecified site[ICD10: M85.80] Jayna VANESSA DO [address] [address] CPT-4: 12185 06/23/2018 ([id number]) OFFICE/OUTPATIENT VISIT EST Diagnosis: Hypothyroidism, unspecified[ICD10: E03.9] Diagnosis: Mixed hyperlipidemia[ICD10: E78.2] Jayna ALVARENGA SPaige LOPEZNDER DO [address] [address] CPT-4: 21950 01/16/2018 ([id number]) OFFICE/OUTPATIENT VISIT EST Diagnosis: Cervicalgia[ICD10: M54.2] Genesis MORILLOLINE Daniel LOPEZ NDEDeejay DO [address] [address] CPT-4: 89294 10/16/2017 ([id number]) OFFICE/OUTPATIENT VISIT EST Diagnosis: Headache[ICD10: R51] Diagnosis: Dizziness and giddiness[ICD10: R42] Jayna KENNEY SPaige LOPEZNDER DO [address] [address] CPT-4: 92880 09/12/2017 OFFICE/OUTPATIENT VISIT EST Diagnosis: Cough[ICD10: R05] Genesis MORILLOLINE Daniel LOPEZNDER DO [facility] [address] [place] [address] CPT-4: 05154 08/20/2017 ([id number]) OFFICE/OUTPATIENT VISIT EST Diagnosis: COUGH[ICD10: R05] Jayna GUTIERREZ TracyPaige JESSICANDER DO [address] [address] CPT-4: 35797 08/13/19 18 ([id number]) OFFICE/OUTPATIENT VISIT EST Diagnosis: Acute bronchospasm[ICD10: J98.01] Jayna Thomas SPaige LOPEZNDER DO [address] [address] CPT-4: 93195 07/29/2017 OFFICE/OUTPATIENT VISIT EST Diagnosis: Influenza due to identified novel influenza A virus with other respiratory manifestations[ICD10: J09.X2] Genesis MORILLOLINE Tracy LOPEZNDER DO [address] [address] CPT-4: 40054 07/25/2017 ([id number]) OFFICE/OUTPATIENT VISIT EST Diagnosis: Pain in unspecified joint[ICD10: M25.50] Jayna VANESSA DO [address] [address] CPT- 4: 58287 06/10/2017 OFFICE/OUTPATIENT VISIT EST Diagnosis: Acute bronchitis, unspecified[ICD10: J20.9] Genesis VANESSA DO [address] [address] CPT- 4: 40954 05/28/2017 ([id number]) OFFICE/OUTPATIENT VISIT EST Diagnosis: Hypothyroidism, unspecified[ICD10: E03.9] Diagnosis: Mixed hyperlipidemia[ICD10: E78.2] Diagnosis: Dxdls-4-mewlgolisoh 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] Diagnosis: Sebaceous cyst[ICD10: L72.3] Jayna MORILLOLINE Daniel VANESSA DO [address] [address] CPT-4: 69528 11/28/2016 ([id number]) OFFICE/OUTPATIENT VISIT EST Diagnosis: Right upper quadrant pain[ICD10: R10.11] Diagnosis: Epigastric pain[ICD10: R10.13] Jayna MORILLOLINE Tracy VANESSA DO [address] [address] CPT-4: 71461 06/05/2016 ([id number]) OFFICE/OUTPATIENT VISIT EST Diagnosis: FLU VACCINE[ICD10: Z23] Jayna MORILLOLINE Daniel JIANG [address] [address] CPT-4: 64050 05/01/2016 OFFICE/OUTPATIENT VISIT EST Diagnosis: Hypothyroidism, unspecified[ICD10: E03.9] Diagnosis: Type 1 diabetes mellitus without complications[ICD10: E10.9] Diagnosis: Mixed hyperlipidemia[ICD10: E78.2] Diagnosis: Essential (primary) hypertension[ICD10: I10] Diagnosis: Mixed incontinence[ICD10: N39.46] Jayna Vanessa IGLESIA Martha VANESSA DO [address] [address] CPT-4: 06896 11/08/2015 ([id number]) OFFICE/OUTPATIENT VISIT EST Diagnosis: Hypothyroidism, unspecified[ICD10: E03.9] Diagnosis: Other fatigue[ICD10: R53.83] Jayna VANESSA [employer] [address] [place] [address] CPT-4: 08379 07/19/2015 ([id number]) OFFICE/OUTPATIENT VISIT EST Diagnosis: Hypothyroidism, unspecified[ICD10: E03.9] Diagnosis: Mixed hyperlipidemia[ICD10: E78.2] Diagnosis: Metabolic syndrome[ICD10: E88.81] Diagnosis: Right lower quadrant abdominal tenderness[ICD10: R10.813] Diagnosis: FLU VACCINE[ICD10: Z23] Jayna JIANG [employer] [address] [place] [address] CPT-4: 00006 03/28/2015 ([id number]) OFFICE/OUTPATIENT VISIT EST Diagnosis: MALAISE AND FATIGUE[ICD9: 780.79] Diagnosis: DEPRESSIVE DISORDER NEC[ICD9: 311] Diagnosis: HYPOTHYROIDISM[ICD9: 244.9] Diagnosis: PNEUMOCOCCAL VACCINE[ICD10: Z23] Jayna VANESSA [email or web address] [address] [place] [address] CPT-4: 00249 02/08/2015 ([id number]) OFFICE/OUTPATIENT VISIT EST Diagnosis: MALAISE AND FATIGUE[ICD9: 780.79] Diagnosis: DEPRESSIVE DISORDER NEC[ICD9: 311] Diagnosis: HYPOTHYROIDISM[ICD9: 244.9] Diagnosis: ARTHRALGIA-MULTIPLE SITES[ICD9: 719.49] Jayna VANESSA [email or web address] [address] [place] [address] CPT-4: 91147 01/11/2015 ([id number]) OFFICE/OUTPATIENT VISIT EST 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] Diagnosis: - I - HYPOTHYROIDISM[ICD9: 244.9] Diagnosis: COUGH[ICD10: R05] Diagnosis: ALLERGIC RHINITIS[ICD9: 477.9] Diagnosis: Lumbar degenerative disc disease[ICD9: 722.52] Jaynaparam VANESSA [address] [address] CPT- 4: 99802 11/24/2014 ([id number]) OFFICE/OUTPATIENT VISIT EST Diagnosis: Allergic reaction[ICD9: 995.3] Galina HernandezLoco JAYNA VANESSA DO [address] [address] CPT-4: 82488 11/19/2014 ([id number]) OFFICE/OUTPATIENT VISIT EST Diagnosis: ALLERGIC RHINITIS[ICD9: 477.9] Diagnosis: WHEEZING[ICD9: 786.07] Diagnosis: URINARY TRACT INFECTION[ICD9: 599.0] Diagnosis: Right flank pain[ICD9: 789.09] Conchita VANESSA DO [address] [address] CPT-4: 79820 10/27/2014 ([id number]) OFFICE/OUTPATIENT VISIT EST Diagnosis: URINARY TRACT INFECTION[ICD9: 599.0] Diagnosis: Flank pain[ICD9: 789.09] Conchita CARTER [address] [address] CPT-4: 83391 09/23/2014 ([id number]) OFFICE/OUTPATIENT VISIT EST Diagnosis: HYPERTENSION[ICD9: 401.9] Diagnosis: - I - HYPOTHYROIDISM[ICD9: 244.9] Diagnosis: HYPERLIPIDEMIA NEC/NOS[ICD9: 272.4] Diagnosis: DYSMETABOLIC SYNDROME X[ICD9: 277.7] Jayna VANESSA [address] [address] CPT-4: 42800 07/28/2014 OFFICE/OUTPATIENT VISIT EST Diagnosis: HYPERTENSION[ICD9: 401.9] Diagnosis: GROSS HEMATURIA[ICD9: 599.71] Jayna VANESSA DO [address] [address] CPT-4: 48947 03/30/2014 ([id number]) OFFICE/OUTPATIENT VISIT EST 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 O RENDER DO [address] [address] CPT-4: 60619 08/25/2013 OFFICE/OUTPATIENT VISIT EST Diagnosis: DEPRESSIVE DISORDER NEC[ICD9: 311] Jayna ALVARENGA S. ORENDER DO [address] [address] CPT-4: 36726 06/29/2013 OFFICE/OUTPATIENT VISIT EST Diagnosis: DEPRESSIVE DISORDER NEC[ICD9: 311] Jayna ALVARENGA S. ORENDER DO [address] [address] CPT-4: 96046 05/26/2013 ([id number]) OFFICE/OUTPATIENT VISIT EST Diagnosis: BRONCHITIS, ACUTE[ICD9: 466.0] Diagnosis: HYPOTHYROIDISM[ICD9: 244.9] Diagnosis: HYPERLIPIDEMIA NEC/NOS[ICD9: 272.4] Diagnosis: Shoulder pain[ICD9: 719.41] Jayna GUTIERREZ S. O RENDER DO [address] [address] CPT-4: 58086 05/06/2013 ([id number]) OFFICE/OUTPATIENT VISIT EST Diagnosis: BRONCHITIS, ACUTE[ICD9: 466.0] Diagnosis: SINUSITIS, ACUTE[ICD9: 461.9] Jayna GUTIERREZ SPaige ORENDER DO [address] [address] CPT-4: 60284 04/23/2013 ([id number]) OFFICE/OUTPATIENT VISIT EST Diagnosis: DYSPNEA[ICD9: 786.09] Diagnosis: EDEMA[ICD9: 782.3] Diagnosis: RWCEV-4-XRDGUIEMPEZ DEFICIENCY[ICD9: 273.4] Diagnosis: COUGH[ICD9: 786.2] Jayna VANESSA DO [address] [address] CPT-4: 35026 03/31/20 13 OFFICE/OUTPATIENT VISIT EST Diagnosis: Chest pain[ICD9: 786.50] Diagnosis: ANXIETY STATE NOS[ICD9: 300.00] Conchita VANESSA DO [address] [address] CPT-4: 75936 03/05/2013 ([id number]) OFFICE/OUTPATIENT VISIT EST Diagnosis: HYPERLIPIDEMIA NEC/NOS[ICD9: 272.4] Diagnosis: HYPOTHYROIDISM[ICD9: 244.9] Diagnosis: Qtvgm-6-tzjojghhkdq deficiency[ICD9: 273.4] Diagnosis: ALLERGIC RHINITIS[ICD9: 477.9] Jayna VANESSA DO [address] [address] CPT-4: 62065 02/04/2013 ([id number]) OFFICE/OUTPATIENT VISIT EST Diagnosis: COUGH[ICD9: 786.2] Diagnosis: ALLERGIC RHINITIS[ICD9: 477.9] Jayna VANESSA DO [address] [address] CPT-4: 58100 11/27/2012 ([id number]) OFFICE/OUTPATIENT VISIT EST Diagnosis: COUGH[ICD9: 786.2] Diagnosis: DYSPNEA[ICD9: 786.09] Jayna VANESSA DO [address] [address] CPT-4: 15859 11/11/2012 ([id number]) OFFICE/OUTPATIENT VISIT EST Diagnosis: ABDOMINAL PAIN[ICD9: 789.00] Diagnosis: DIARRHEA[ICD9: 787.91] Diagnosis: COUGH[ICD9: 786.2] Jayna GUTIERREZ TracyPaige ANDIE DO [address] [address] CPT-4: 61694 10/21/19 13 OFFICE/OUTPATIENT VISIT EST Diagnosis: COUGH[ICD9: 786.2] Diagnosis: SINUSITIS, ACUTE[ICD9: 461.9] Diagnosis: PHARYNGITIS, ACUTE[ICD9: 462] Jayna GUTIERREZ TracyPaige JANISAPOLINAR DO [address] [address] CPT-4: 23532 09/03/2012 OFFICE/OUTPATIENT VISIT EST Diagnosis: ABDOMINAL PAIN[ICD9: 789.00] Diagnosis: Diarrhea[ICD9: 787.91] Jayna Villalba DO [address] [address] CPT-4: 94865 07/23/2012 ([id number]) OFFICE/OUTPATIENT VISIT EST Diagnosis: DM 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 TYPE II, UNCONTROLLED[ICD9: 250.02] Diagnosis: HYPERLIPIDEMIA NEC/NOS[ICD9: 272.4] Diagnosis: GERD[ICD9: 530.81] Jayna GUTIERREZ TracyPaige JESSICAMARIALUISA DO [address] [address] CPT-4: 34592 05/20/20 OFFICE/OUTPATIENT VISIT EST Diagnosis: DERMATITIS NOS[ICD9: 692.9] Galina PUCKETT DO [address] [address] CPT-4: 56439 04/04/2012 ([id number]) OFFICE/OUTPATIENT VISIT EST Diagnosis: HYPERLIPIDEMIA NEC/NOS[ICD9: 272.4] Diagnosis: HYPOTHYROIDISM[ICD9: 244.9] Diagnosis: DYSMETABOLIC SYNDROME X[ICD9: 277.7] Jayna Sanchez ANDIE [address] [address] CPT-4: 53784 01/02/2012 OFFICE/OUTPATIENT VISIT EST Diagnosis: COUGH[ICD9: 786.2] Diagnosis: SINUSITIS, ACUTE[ICD9: 461.9] Lizzie GUTIERREZ S. ORENDER DO [address] [address] CPT-4: 60360 09/04/2011 OFFICE/OUTPATIENT VISIT EST Diagnosis: Diverticulitis[ICD9: 562.11] Diagnosis: THROMBOPHLEBITIS[ICD9: 451.9] Jayna VANESSA DO [address] [address] CPT-4: 62211 08/14/2011 OFFICE/OUTPATIENT VISIT EST Diagnosis: COUGH[ICD9: 786.2] Jayna VANESSA DO [address] [address] CPT-4: 97873 07/25/19 12 OFFICE/OUTPATIENT VISIT EST Diagnosis: HYPOTHYROIDISM[ICD9: 244.9] Diagnosis: HYPERLIPIDEMIA NEC/NOS[ICD9: 272.4] Diagnosis: Total knee replacement status[ICD9: V43.65] Jayna VANESSA DO [address] [address] CPT- 4: 92664 07/12/2011 OFFICE/OUTPATIENT VISIT EST Diagnosis: BRONCHITIS, ACUTE[ICD9: 466.0] Diagnosis: COUGH[ICD9: 786.2] Jayna VANESSA DO [address] [address] CPT-4: 52137 05/09/20 11 OFFICE/OUTPATIENT VISIT EST Diagnosis: BRONCHITIS, ACUTE[ICD9: 466.0] Diagnosis: ASTHMA NOS[ICD9: 493.90] Diagnosis: Pleurisy[ICD9: 511.0] Jayna VANESSA DO [address] [address] CPT-4: 77081 05/02/2011 OFFICE/OUTPATIENT VISIT EST Diagnosis: COUGH[ICD9: 786.2] Jayna VANESSA DO [address] [address] CPT-4: 78128 11/02/20 11 OFFICE/OUTPATIENT VISIT EST Diagnosis: COUGH[ICD9: 786.2] Diagnosis: SINUSITIS, ACUTE[ICD9: 461.9] Jayna Jessicaleydaapolinar [facility] [address] [place] [address] CPT-4: 76238 04/04/2011 OFFICE/OUTPATIENT VISIT EST Diagnosis: HYPOTHYROIDISM[ICD9: 244.9] Diagnosis: Knee osteoarthritis[ICD9: 715.96] Jaynaparam PAREKH Martha [facility] [address] [place] [address] CPT-4: 00249 03/01/2011 OFFICE/OUTPATIENT VISIT EST Jayna VILLARREALQUELINE S. [facility] [address] [place] [address] CPT-4: 21636 01/04/2011 ([id number]) OFFICE/OUTPATIENT VISIT EST Jayna Jessicamarialuisa VILLARREALKirill StonerELINE S[facility] [address] [place] [address] CPT-4: 86254 12/07/2010 ([id number]) OFFICE/OUTPATIENT VISIT EST Jayna Jessicaleydaapolinar PISANO [facility] [address] [place] [phone] CPT-4: 85225 10/09/2010 ([id number]) OFFICE/OUTPATIENT VISIT EST Jayna Jessicaleydaapolinar [facility] [address] [place] [phone] CPT-4: 17637 08/07/2010 ([id number]) OFFICE/OUTPATIENT VISIT, EST Jayna VILLARREAL MINPILAR [facility] [address] [place] [phone] CPT-4: 96434 06/06/2010 ([id number]) OFFICE/OUTPATIENT VISIT, EST Jayna [facility] [address] [place] [phone] CPT-4: 81768 03/20/2010 ([id number]) OFFICE/OUTPATIENT VISIT, EST Jayna [facility] [address] [place] [phone] CPT-4: 79974 01/30/2010 ([id number]) OFFICE/OUTPATIENT VISIT, EST Jayna VANESSA DO [employer] [address] [place] [phone] CPT-4: 12185 01/09/2010 ([id number]) OFFICE/OUTPATIENT VISIT, EST Jayna BRUCEER DO [address] [phone] CPT-4: 74994 10/26/2009 ([id number]) OFFICE/OUTPATIENT VISIT, EST Lizzie BRUCEER DO [address] [phone] CPT-4: 09309 10/18/19 10 ([id number]) OFFICE/OUTPATIENT VISIT, EST Jayna VANESSA DO [address] [phone] CPT-4: 43467 10/04/2009 ([id number]) OFFICE/OUTPATIENT VISIT, EULOGIO VANESSA DO [employer] [address] [place] [phone] CPT-4: 81253 09/21/2009 Plan of Care Planned Activity Notes [...] F43.9 08/07/2022 Appointment: Jayna Vanessa WPtel: [phone] [phone] US FOLLOW UP 08/07/2022 Visit Diagnosis Plan: Acute cystitis Discussion: Start Cipro 250mg bid x5 days-- discussed may need to extend longer as possibly early stage of pyelonephritis. Continue to push water. Small drop of urine sent for culture-- discussed if barden ble to run will have her repeat after completing antibiotic if still symptomatic. ICD-9 : 595.0 ICD-10 : N30.00 06/29/2022 Appointment: Marlene Staples WPtel: [phone] [phone] ACUTE ILLNESS 06/29/2022 Patient Education: ciprofloxacin HCl- [employer] Coupon [phone] Completed 06/29/2022 Visit Diagnosis Plan: Depression Discussion: Increase Wellbutrin XL to 300mg po qAM Fwup 2 mos ICD-9 : 311 ICD-10 : F32.A 05/28/2022 Visit Diagnosis Plan: Hypothyroidism Discussion: Labs discussed Decrease levothyroxine to 150mcg 6 days a week and repeat thyroid lab in 2mos ICD-9 : 244.9 ICD-10 : E03.9 05/28/2022 Appointment: Jayna Vanessa WPtel: [phone] [phone] US FOLLOW UP 05/28/2022 Visit Diagnosis [...] : R73.9 05/10/2022 Appointment: Jayna Vanessa WPtel: [address] [place], [place] [phone] US FOLLOW UP 05/10/2022 Visit Diagnosis Plan: Migraine, intractable Discussion : Toradol 30mg IM x1 given in clinic. Start Rizatriptan-- discussed on how to use and may repeat x1 dose 2 hours later. Restart propranolol for migraine prevention. Notify clinic if migraine not improving. ICD-9 : 346.91 ICD-10 : G43.919 04/18/2022 Appointment: Marlene Staples WPtel: [phone] [place] [phone] ACUTE ILLNESS 04/18/2022 Patient Education: propranolol- OptimizeRX Coupon [id number] Completed 04/18/2022 Appointment: Jayna Vanessa WPtel: [address] [place] [address] US INJECTION 04/05/2022 Appointment: Jayna Vanessa WPtel: [address] [place], [place] [phone] US CANCELED 03/21/2022 Visit Diagnosis Plan: Acute [...] : J30.9 02/15/2022 Appointment: Jayna Vanessa WPtel: [address] [place], [place] [phone] US ACUTE ILLNESS 02/15/2022 Patient Education: prednisone- OptimizeRX Coupon [id number] https://www.tarpipe.com/samplemd/resources/getResource/61/50i26fk9-l168-5p51-ks Completed 02/15/2022 Visit Diagnosis Plan: Hypothyroidism, unspecified Disc ussion: Stable ICD-9 : 244.9 ICD-10 : E03.9 02/06/2022 Visit Diagnosis Plan: [facility] without abnormal findings [...] J44.9 02/06/2022 Appointment: Jayna Vanessa WPtel: [phone] [phone] Annual Well Visit 02/06/2022 Care Plan: Annual depression screening, 15 minutes 02/06/2022 Visit Diagnosis Plan: 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 Patient declines- will get stat CT of the head, cbc, cmp, and ESR and fwup with results [facility] sample given ICD-9 : 346.03 ICD-10 : G43.111 02/01/2022 Appointment: Latasha Anand WPtel: [phone] [phone] ACUTE ILLNESS 02/01/2022 Patient Education: Patient [...] : R19.7 11/29/2021 Appointment: Jayna Vanessa WPtel: [address] [place], [place] [phone] FOLLOW UP 11/29/2021 Visit Diagnosis Plan: Diarrhea Discussion: C Diff nega tive Treat with diflucan and Restora-RX Fwup 1 week ICD-9 : 787.91 ICD-10 : R19.7 11/22/2021 Visit Diagnosis Plan: Post-viral cough syndrome Discus joaquín: Change albuterol to Breztri 2p BID Add singulair 10mg po q HS ICD-9 : 786.2 ICD-10 : R05.8 11/22/2021 Appointment: Jayna Vanessa WPtel: [phone] [phone] US ACUTE ILLNESS 11/22/2021 Patient Education: Singulair- OptimizeRX Jorge L [phone] https://www.tarpipe.[employer]OLA J[employer]/samplemd/resources/getResource/61/0c94ozp4-8zfg-0987-3w Completed 11/22/2021 Visit Diagnosis Plan: Diarrhea of presumed infectious origin Discussion: Will check for c-diff due to recent antibiotics and foul smelling diarrhea ICD-9 : 009.3 ICD-10 : R19.7 11/21/2021 Visit Diagnosis Plan: History of recent pneumonia Disc ussion: Check cbc, cmp, ESR, and cxr now ICD-9 : V12.61 ICD-10 : Z87.01 11/21/2021 Appointment: Latasha Anand WPtel: [phone] [phone] ACUTE ILLNESS 11/21/2021 Patient Education: Patient Medication Summary Completed 11/21/2021 Visit Diagnosis Plan: Pneumonia Discussion: Finish all abx and continue albuterol Fwup next week ICD-9 : 486 ICD-10 : J18.9 11/09/2021 Visit Diagnosis Plan: Serous otitis media Discussion: Kenalog 40mg with Dexamethasone 2mg IM now ICD-9 : 381.4 ICD-10 : H65.90 11/09/2021 Appointment: Jayna Vanessatel: [address] [place], [place] [address] Hospital Follow Up 11/09/2021 Visit Diagnosis Plan: Pneumonia Discussion: Admit to h ospital ICD-9 : 486 ICD-10 : J18.9 10/31/2021 Appointment: Jayna Vanessatel: [address] [place], [place] [phone] FOLLOW UP 10/31/2021 Visit Diagnosis Plan: Nausea [...] us e prn 10/30/2021 Appointment: Jayna Vanessatel: [facility]1 [phone] ACUTE ILLNESS 10/30/2021 Visit Diagnosis Plan: Cervicalgia Discussion: Had x-ra ys done Kenalog 40mg IM now Baclofen prn Mobic for 1 week Topical muscle rube Moist heat and stretches shown Has PT sessions scheduled next week so will add in therapy for neck ICD-9 : 723.1 ICD-10 : M54.2 09/05/2021 Appointment: Jayna Vanessatel: [phone] [phone] ACUTE ILLNESS 09/05/2021 Visit Diagnosis Plan: [...] 08/24/2021 Appointment: Latasha Anand WPtel: [phone] [phone] ACUTE ILLNESS 08/24/2021 Patient Education: Patient Medication Summary Completed 08/24/2021 Patient Education: prednisone- [employer] Coupon [id number] Completed 08/24/2021 Visit Plan: Supportive care. Rest, [...] : J06.9 07/04/2021 Appointment: [facility]el[facility] [address] [facility] [facility] 07/04/2021 Patient Education: Patient Medication Summary Completed 07/04/2021 Patient Education: Patient Medication Summary Completed 07/04/2021 Appointment: Latasha Anand WPtel: [phone] [phone] US NO SHOW 07/03/2021 Appointment: Latasha Anand WPtel: [phone] [phone] patients issue resolved so moved to 's schedule for his hospital fwup (km) CANCELED 03/29/2021 Appointment: Jayna Vanessa WPtel: [phone] [phone] US INJECTION 03/29/2021 Visit Diagnosis Plan: Vasovagal episode Discussion: Mo nitored in office. Stable, feeling better- sent to [facility] for 1L NS IV, cbc, and cmp. ICD-9 : 780.2 ICD-10 : R55 03/01/2021 Patient Education: Patient Medication Summary Completed 03/01/2021 Visit Diagnosis Plan: Sebaceous cyst of right axilla D iscussion: Pustule/cyst drained- see note. F/U for concerns. ICD-9 : 706.2 ICD-10 : L72.3 02/08/2021 Appointment: Latasha Anand WPtel: [phone] [phone] ACUTE ILLNESS 02/08/2021 Patient Education: Patient Medication Summary Completed 02/08/2021 Visit Diagnosis Plan: Contact dermatitis Discussion: T opical TAC and prednisone Notify if persists or worsens ICD-9 : 692.9 ICD-10 : L25.9 01/19/2021 Appointment: Jayna Vanessa WPtel: [phone] [phone] ACUTE ILLNESS 01/19/2021 Patient Education: prednisone- [employer] Coupon [id number] Completed 01/19/2021 Patient Education: triamcinolone acetonide- [employer] Coupon [phone] Completed 01/19/2021 Visit Diagnosis Plan: Hypothyroidism, unspecified Disc ussion: Increase levothyroxine to 150mcg po daily and recheck TSH and free T4 in 2mos ICD-9 : 244.9 ICD-10 : E03.9 01/03/2021 Visit Diagnosis Plan: Essential (primary) hypertension Discussion: Stable ICD-9 : 401.9 ICD-10 : I10 01/03/2021 Visit Diagnosis Plan: [facility] without abnormal findings Discussion: Mediterranean diet Combinati on of cardio and weight bearing exercise Had Covid vaccines Lab discussed ICD-9 : V70.9 ICD-10 : Z00.00 01/03/2021 Visit Diagnosis Plan: Chronic obstructive pulmonary di sease, unspecified Discussion: Following with pulmonology ICD-9 : 496 ICD-10 : J44.9 01/03/2021 Appointment: Jayna Vanessa WPtel: [phone] [phone] Annual Well Visit 01/03/2021 Patient Education: levothyroxine- [employer] Coupon [id number] https://www.[employer]/samplemd/resources/getResource/61/4h939os9-0on9-4253-l8 Completed 01/03/2021 Visit Diagnosis Plan: COPD exacerbation Discussion: Sa jorge a given. Prednisone 40 mg x 5 days for exacerbation- increased cough, shortness of breath, and phlegm. Promethazine DM cough syrup sent d/t frequent hacking cough that interrupts sleep. F/U for no improvement or any concerns. ICD-9 : 491.21 ICD-10 : J44.1 11/29/2020 Appointment: Latasha Anand WPtel: [phone] [facility] [facility] I[facility]NESS 11/29/2020 Patient Education: Patient Medication Summary Completed 11/29/2020 Patient Education: prednisone- [employer] Coupon [id number] Completed 11/29/2020 Patient Education: promethazine-DM- [employer] Coupon [id number] Completed 11/29/2020 Visit Diagnosis Plan: Sinusitis Discussion: Will start doxycycline (pcn allergy). Sinus rinses. Tylenol/nsaids for headache/pain. Return to clinicif not improving/concerns. ICD-9 : 473.9 ICD-10 : J32.9 09/29/2020 Appointment: Latasha Anand WPtel: [phone] [phone] ACUTE ILLNESS 09/29/2020 Patient Education: Patient Medication Summary Completed 09/29/2020 Patient Education: doxycycline hyclate- [employer] Coupon [phone] Completed 09/29/2020 Visit Diagnosis Plan: Other [...] J42 09/19/2020 Appointment: Latasha Anand WPtel: [phone] [phone] ACUTE ILLNESS 09/19/2020 Patient Education: Patient Medication Summary Completed 09/19/2020 Patient Education: ProAir HFA- [employer] Coupon [id number] Completed 09/19/2020 Visit Diagnosis Plan: Right-sided tinnitus [...] H93.11 08/10/2020 Appointment: Jayna Vanessa WPtel: [address] [phone] FOLLOW UP 08/10/2020 Patient Education: neomycin-polymyxin B-dexameth- Opti mizeRX Coupon [id number] https://www.tarpipe.[employer] J[employer]/samplemd/resources/getResource/61/ez285i10-l12g-0s09-dk Completed 08/10/2020 Visit Diagnosis Plan: Dysfunction of right eustachian tube Discussion: Naylay.or video visit done Increase zyrtec to BID Increase flonase to BID Add prednisone To office at end of week to assess otoscope exam if persists ICD-9 : 381.81 ICD-10 : H69.81 08/01/2020 Appointment: Jayna Vanessa WPtel: [phone] [phone] TELEMEDICINE 08/01/2020 Patient Education: prednisone- Opt[employer]RX Coupon [phone] https://www.[employer]/samplemd/resources/getResource/61/eb1g84x2-1958-7b6n-75 Completed 08/01/2020 Visit Diagnosis Plan: Pyelonephritis Discussion: Hilary daniel all abx Push fluids Check lab and repeat UA in 5 days--CBC, CMP, ESR ICD-9 : 590.80 ICD-10 : N12 07/13/2020 Appointment: Jayna Vanessa WPtel: [facility] [place] [phone] Hospital Follow Up 07/13/2020 Visit Diagnosis Plan: Acute gastroenteritis Discussion : Telephone visit completed Clear liquid diet next 24-48hrs Flagyl to cover for colitis/diverticulitis Zofran prn Notify or to ER if worsening ICD-9 : 558.9 ICD-10 : K52.9 07/05/2020 Appointment: Jayna Vanessa WPtel: [facility]9 [phone] TELEMEDICINE 07/05/2020 Patient Education: ondansetron HCl- OptimizeRX Coupon [id number] https://www.tarpipe.[employer] J[employer]B/sampleTenex Health/resources/getResource/61/w3o33il5-0i7u-082t-4u Completed 07/05/2020 Visit Diagnosis Plan: Metabolic syndrome Discussion: U pdate CMP, HBa1c ICD-9 : 277.7 ICD-10 : E88.81 06/22/2020 Visit Diagnosis Plan: Echsx-4-zvzbtyqzacj deficiency D iscussion: Following with pulmonology ICD-9 [...] : I10 06/22/2020 Appointment: Jayna Vanessa WPtel: [facility]6 [phone] FOLLOW UP 06/22/2020 Visit Diagnosis Plan: Urinary tract infection Discussi on: Macrobid Diflucan Push water Notify if worsens ICD-9 : 599.0 ICD-10 : N39.0 05/17/2020 Appointment: Jayna Vanessatel: [facility]3 [phone] ACUTE ILLNESS 05/17/2020 Patient Education: fluconazole- Opt[employer]RX Coupon [phone] https://www.tarpipe.com/samplemd/resources/getResource/61/4a6tc3ci-n9h3-3a5y-9x Completed 05/17/2020 Visit Diagnosis Plan: Right pulmonary embolus Discussi on: Continue eliquis at 5mg po BID Has appointments pending with pulmonology and hematology Fwup after visits with both of these specialists ICD-9 : 415.19 ICD-10 : I26.99 03/14/2020 Appointment: Jayna Vanessa WPtel: [facility]7 [phone] US LM 03/14/20 on cell -- home phone had busy signal Hospital Follow Up 03/14/2020 Appointment: Jayna Vanessa WPtel: [facility]3 [phone] I schedule patient by mistake ddo [...] R06.00 03/07/2020 Appointment: Jayna Vanessa WPtel: [phone] [phone] ACUTE ILLNESS 03/07/2020 Care Plan: CT THORAX W/DYE LOINC : 77524 -6 Pending 03/07/2020 Appointment: Jayna Vanessa WPtel: [phone] [phone] NO SHOW - FORGIVEN 03/02/2020 Visit Diagnosis Plan: Upper respiratory infection Disc ussion: patient's covid test was neg from several weeks ago. proair refilled to take as needed. medrol pack prescribed to cover for allergies since her symptoms began after being in [facility]. however, instructed patient that she needs to be checked again for coronavirus due to severity of her symptoms. patient lives near [place] so informed her to go [facility]. call ofice with new or worsening symptoms, otherwise push fluids. ICD-9 : 465.9 ICD-10 : J06.9 02/11/2020 Appointment: Genesis Fernández [address] [place] [address] TELEMEDICINE 02/11/2020 Patient Education: ProAir HFA- [employer] Coupon [id number] Completed 02/11/2020 Patient Education: Medrol (Isaiah)- Optimize[employer] Coupon [id number] Completed 02/11/2020 Visit Diagnosis Plan: Hypothyroidism, unspecified [...] 12/21/2019 Visit Diagnosis Plan: [facility] without abnormal findings Discussion: Mediterranean diet Combinati on of cardio and weight bearing exercise Lab discussed Last colonoscopy 3 years ago ICD-9 : V70.9 ICD-10 : Z00.00 12/21/2019 Appointment: Jayna Vanessatel: [address] [facility] Annual Well Visit 12/21/2019 Care Plan: Referral Order SNOMED-CT : [id number] Pending 12/21/2019 Visit Diagnosis Plan: Dermatitis Discussion: Doxy.me v ideo visit done Cover with Prednisone taper Use Zyrtec 10mg po q AM BID ICD-9 : 692.9 ICD-10 : L30.9 09/29/2019 Appointment: Jayna Vanessatel: [phone] [phone] TELEMEDICINE 09/29/2019 Patient Education: prednisone- Opt[employer]RX Coupon [phone] https://www.tarpipe.com/samplemd/resources/getResource/61/90w84n58-9m01-6k17-1u Completed 09/29/2019 Visit Diagnosis Plan: Bone spur [...] : N39.0 09/14/2019 Appointment: Jayna Vanessa WPtel: [address] [place], [place] [phone] TELEMEDICINE 09/14/2019 Appointment: Jayna Vanessa WPtel: [address] [place], [place] [phone] US LAB 09/11/2019 Appointment: Jayna Vanessa WPtel: [address] [place], [place] [phone] 09/09/2019 1210--per Joey patient was to only have 1 injection, reculture urine on 09/11/19 (km) CANCELED 09/09/2019 Appointment: Jayna Vanessa WPtel: [address] [place], [place] [phone] INJECTION 09/08/2019 Appointment: Jayna Vanessa WPtel: [address] [place], [place] [phone] US INJECTION 09/07/2019 Visit Diagnosis Plan: Urinary [...] ICD-10 : R35.0 09/02/2019 Appointment: Genesis Fernández [address] [place] [address] ACUTE ILLNESS 09/02/2019 Visit Diagnosis Plan: Sinusitis Discussion: instructed to start flonase daily and zyrtec daily. if no improvement next week, call clinic and may need further directions. instructed to use saline eye drops as needed to eyes to assist with dryness. ICD-9 : 473.9 ICD-10 : J32.9 07/09/2019 Appointment: Genesis Fernández [address] [place] [address] ACUTE ILLNESS 07/09/2019 Visit Diagnosis Plan: UTI (urinary tract infection) Di scussion: urine culture sent off. will start on macrobid due to symptoms. instructed to push fluids and chemo tomorrow with worsening symptoms. ICD-9 : 599.0 ICD-10 : N39.0 04/15/2019 Appointment: Jayna Vanessa WPtel: [facility]6 [phone] US INJECTION 04/15/2019 Appointment: Genesis Fernández [address] [place] [address] ACUTE ILLNESS 04/15/2019 Visit Diagnosis Plan: Pain in right leg Discussion: ke nalog/dexa given in office. continue with flexeril prn. PT was ordered for patient due to chronic issues. call office with worsening symptoms and may need imaging. ICD-9 : 729.5 ICD-10 : M79.604 04/07/2019 Appointment: Genesis Fernández [address] [place] [address] ACUTE ILLNESS 04/07/2019 Visit Diagnosis Plan: Diverticulitis of large intestine without perforation or abscess without bleeding Discussion: Patient will call when she g ets home and verify which antibiotics she has left--needs at least another week on flagyl and thinks she only took 1 week on that ICD-9 : 562.11 ICD-10 : K57.32 03/25/2019 Appointment: Jayna Vanessa WPtel: [phone] FOLLOW UP 03/25/2019 Visit Diagnosis Plan: Cystitis Discussion: Bactrim and culture urine ICD-9 : 595.9 ICD-10 : N30.90 03/18/2019 Visit Diagnosis Plan: Abdominal pain Discussion: Cover with flagyl for colitis Walsh diet To ER this weekend if worsening Fwup 1 week ICD-9 : 789.00 ICD-10 : R10.9 03/18/2019 Appointment: Jayna Vanessa WPtel: [phone] [phone] ACUTE ILLNESS 03/18/2019 Visit Diagnosis Plan: [...] ICD-10 : R10.84 01/26/2019 Appointment: Genesis Fernández [address] [place] [address] ACUTE ILLNESS 01/26/2019 Appointment: Jayna Vnaessa WPtel: [facility] [place] [phone] CANCELED 01/12/2019 Visit Diagnosis Plan: Mild intermittent asthma with (a cute) exacerbation Discussion: Kenalog 40mg IM now Prednisone stating tomorrow Start Doxycycline tonight Continue SVNs with duoneb q4hrs To ER this weekend if worsening Call Saturday on how doing ICD-9 : 466.0 ICD-10 : J45.21 01/08/2019 Appointment: Jayna Vanessa WPtel: [address] [place], [place] [phone] FOLLOW UP 01/08/2019 Patient Education: prednisone- OptimizeRX Coupon [phone] https://www.[employer]/tarpipe/resources/getResource/61/75702361-f1tc-5913-37 Completed 01/08/2019 Visit Diagnosis Plan: Mild intermittent asthma with (a cute) exacerbation Discussion: Solumedrol 125mg IM SVN with duoneb given Continue albuterol q4hrs CXR now Recheck tomorrow ICD-9 : 466.0 ICD-10 : J45.21 01/06/2019 Appointment: Jayna Vanessa WPtel: [facility] [place] [phone] ACUTE ILLNESS 01/06/2019 Visit Diagnosis Plan: Encounter for screening for roel gnant neoplasm of colon Discussion: positive for ob. will order ct abd/pelvis due to other findings and discussed with patient that may need to proceed with updated colonoscopy. patient verbalized understanding. ICD-9 : V76.51 ICD-10 : Z12.11 12/11/2018 Visit Diagnosis Plan: Encounter for [facility] adult medical examination with abnormal [...] ICD-10 : N76.0 12/11/2018 Appointment: Genesis Fernández [address] [place], [place] [address] Annual Well Visit 12/11/2018 Care Plan: RML ASSAY THYROID STIM HORMONE Pending 12/04/2018 Care Plan: RML ASSAY OF FREE THYROXINE Pe nding 12/04/2018 Care Plan: RML A1C HPLC LOINC : 25923-9 Pending 12/04/2018 Care Plan: RML LIPID PANEL LOINC : 16189 -1 Pending 12/04/2018 Care Plan: RML COMPREHEN METABOLIC PANEL LOINC : 04407-5 Pending 12/04/2018 Care Plan: QUEST CBC (INCLUDES DIFF/PLT) LOINC : 54879-0 Pending 12/04/2018 Visit Diagnosis Plan: Benign paroxysmal vertigo, bilat eral Discussion: Meclizine Vestibular Exercises To ER if worsens or develops neurological symptoms or will need CT scan if persists/worsens ICD-9 : 386.11 ICD-10 : H81.13 10/30/2018 Appointment: Jayna Vanessa WPtel: [address] [phone] ACUTE ILLNESS 10/30/2018 Patient Education: VESTIBULAR EXCERCISES Completed 10/30/2018 Patient Education: meclizine- OptimizeRX Coupon [id number] Completed 10/30/2018 Appointment: Jayna Vanessa WPtel: [phone] [phone] US canceled due to huband going [...] ICD-10 : R05 10/07/2018 Appointment[facility] Stacey Feng [facility] ACUTE ILLNESS 10/07/2018 Patient Education: doxycycline hyclate- OptimizeRX Cou jerald [id number] https://www.tarpipe.com/samplemd/resources/getResource/61/f482gmi3-b407-689u-97 Completed 10/07/2018 Care Plan: RML ASSAY OF [...] : M85.80 06/23/2018 Appointment: Jayna Vanessa WPtel: [address] [place], [place] [phone] US FOLLOW UP 06/23/2018 Appointment: Jayna Vanessa WPtel: [address] [place], [place] [phone] ER Follow UP 01/27/2018 Visit Diagnosis Plan: Hypothyroidism, unspecified Disc ussion: Lab discussed Increase Levothyroxine to 175mcg daily then recheck level in 6 weeks Follow Up: 6 weeks ICD-9 : 244.9 ICD-10 : E03.9 01/16/2018 Visit Diagnosis Plan: Mixed hyperlipidemia Discussion: Defers statin meds ICD-9 : 272.4 ICD-10 : E78.2 01/16/2018 Appointment: Jayna Vanessa WPtel: [address] [place], [place] [address] US FOLLOW UP 01/16/2018 Patient Education: Patient Medication Summary Completed 01/16/2018 Patient Education: Patient Medication Summary Completed 01/15/2018 Care Plan: RML COMPREHEN METABOLIC PANEL LOINC : 70482-7 Pending 01/15/2018 Care Plan: RML ASSAY THYROID STIM HORMONE Pending 01/15/2018 Care Plan: RML ASSAY OF FREE THYROXINE Pe nding 01/15/2018 Care Plan: RML LIPID PANEL LOINC : 95985 -1 Pending 01/15/2018 Care Plan: CBC Pending 01/15/2018 Care Plan: RML A1C HPLC LOINC : 04239-1 Pending 01/15/2018 Appointment: Jayna Vanessa WPtel: [address] [place] [phone] US CANCELED 12/26/2017 Appointment: Jayna Vanessa WPtel: [address] [place] [phone] US CANCELED 10/28/2017 Visit Diagnosis Plan: Cervicalgia Discussion: xray ord ered of cervical spine and right shoulder. 40 mg kenalog/15 mg toradol prescribed to assist with pain. medrol dose pack prescribed to start tomorrow. instructed patient that if she d evelops worsening pain or no improvement, call or rtc. ICD-9 : 723.1 ICD-10 : M54.2 10/16/2017 Appointment: Genesis Fernández [address] [phone] ACUTE ILLNESS 10/16/2017 Patient Education: Patient Medication Summary Completed 10/16/2017 Care Plan: X-RAY EXAM NECK SPINE 4/5VWS cervical LOINC : 40373-5 Pending 10/16/2017 Visit Diagnosis Plan: Headache Discussion: Stat CT of head Dilated eye exam ICD-9 : 784.0 ICD-10 : R51 09/12/2017 Visit Diagnosis Plan: Dizziness and giddiness Discussi on: Check CBC,TSH, Free T4 now ICD-9 : 780.4 ICD-10 : R42 09/12/2017 Appointment: Jayna Vanessa WPtel: [phone] [phone] ACUTE ILLNESS 09/12/2017 Patient Education: Patient Medication Summary Completed 09/12/2017 Care Plan: CT HEAD/BRAIN W/O DYE LOINC : 00284-8 Pending 09/12/2017 Visit Diagnosis Plan: Cough Discussion: discussed cxra y and sputum results with patient and how they are negative for bacteria. patient restarted on her PPI to cover possiblity of GERD causing cough. instructed patient to contact her supervisor [employer] in [place] for them to evaluate. rtc with any new or worsening symptoms but continue with inhaler and nebulizer treatments as needed. ICD-9 : 786.2 ICD-10 : R05 08/20/2017 Appointment: Genesis Fernández [address] [facility] FOLLOW UP 08/20/2017 Patient Education: Patient Medication Summary Completed 08/20/2017 Visit Diagnosis Plan: COUGH Discussion: Check stat CXR Check Sputum culture ICD-9 : 786.2 ICD-10 : R05 08/13/2017 Appointment: Jayna Vanessa WPtel: [phone] [phone] ACUTE ILLNESS 08/13/2017 Patient Education: Patient [...] Rest, Fluids... 07/29/2017 Appointment: Jayna Vanessa WPtel: [address] [place], [place] [phone] ACUTE ILLNESS 07/29/2017 Patient Education: Patient Medication [...] ICD-10 : J09.X2 07/25/2017 Appointment: Genesis Fernández [address] [place] [address] ACUTE ILLNESS 07/25/2017 Patient Education: Patient Medication [...] : M25.50 06/10/2017 Appointment: Jayna Vanessa WPtel: [address] [place], [place] [phone] ACUTE ILLNESS 06/10/2017 Patient Education: Patient Medication Summary Completed 06/10/2017 Appointment: Jayna Vanessa WPtel: [address] [place], [place] [phone] Does not need appointment CANCELED 2016 Appointment: Jayna Vanessa WPtel: [phone] [phone] US CANCELED 05/30/2017 Visit Diagnosis Plan: Acute bronchitis, unspecified Di scussion: prednisone, zpack and tessalon perles prescribed to assist with symptoms. call or RTC if no improvement. humidifier at night. hydrate well and rest. discussed side effects from prednisone including increased blood sugars and instructed to monitor. ICD-9 : 490 ICD-10 : J20.9 05/28/2017 Appointment: Genesis Fernández [address] [facility] ACUTE ILLNESS 05/28/2017 Patient Education: Patient Medication Summary Completed 05/28/2017 Visit Diagnosis Plan: Type 2 diabetes mellitus without complications Discussion: Continue current meds accuchecks daily ICD-9 : 250.00 ICD-10 : E11.9 04/04/2017 Visit Diagnosis Plan: [facility] for [facility] medical examination without abnormal findings Discussion: Flu and Pneumovax given Mamm ogram ordered Lab discussed ICD-9 : V70.9 ICD-10 : Z00.00 04/04/2017 Appointment: Jayna Vanessa WPtel: [phone] [phone] Annual Well Visit 04/04/2017 Patient Education: Patient Medication Summary Completed 04/04/2017 Care Plan: MAMMOGRAM SCREENING LOINC : 2 6347-5 Pending 04/04/2017 Patient Education: Patient Medication Summary Completed 03/21/2017 Care Plan: RML COMPREHEN METABOLIC PANEL LOINC : 13403-8 Pending 03/21/2017 Care Plan: RML ASSAY THYROID STIM HORMONE Pending 03/21/2017 Care Plan: RML ASSAY OF FREE THYROXINE Pe nding 03/21/2017 Care Plan: CBC Pending 03/21/2017 Care Plan: RML A1C HPLC LOINC : 42608-7 Pending 03/21/2017 Visit Diagnosis Plan: Mixed hyperlipidemia Discussion: Continue current meds Follow Up: 6 months ICD-9 : 272.4 ICD-10 : E78.2 11/28/2016 Visit Diagnosis Plan: Hypothyroidism, unspecified Disc ussion: Continue current dose ICD-9 : 244.9 ICD-10 : E03.9 11/28/2016 Visit Diagnosis Plan: Xnivu-3-kresyposeav deficiency D iscussion: Continue weekly injections ICD-9 : 273.4 ICD-10 : E88.01 11/28/2016 Visit Diagnosis Plan: Sebaceous cyst Discussion: Emily swann Discussed removal ICD-9 : 706.2 ICD-10 : L72.3 11/28/2016 Appointment: Jayna Vanessa WPtel: [phone] [phone] / rang and rang on home phone and mobile confirmed~sl FOLLOW UP 11/28/2016 Patient Education: Patient Medication Summary Completed 11/28/2016 Patient Education: Patient Medication Summary Completed 11/20/2016 Referral: Tom Mcrae WPtel: [address] [facility] [address] [id number] US Referral Initiated 07/05/2016 Visit Plan: Start with CT abdomen/pelvis Will need EGD and Colonoscopy so will refer to Dr. Pina Obtain most recent lab results 06/05/2016 Appointment: Jayna Vanessa WPtel: [phone] [facility] [place] [phone] [place]LLNESS 06/05/2016 Patient Education: Patient Medication Summary Completed 06/05/2016 Care Plan: CT PELVIS W/O DYE LOINC : 361 08-9 Pending 06/05/2016 Care Plan: CT ABDOMEN W/O DYE LOINC : 36 103-0 Pending 06/05/2016 Care Plan: Referral Order SNOMED-CT : [id number] Pending 06/05/2016 Appointment: Jayna Vanessa WPtel: [phone] [facility] [place] [phone] [place] INJECTION 05/01/2016 Patient Education: Patient Medication Summary Completed 05/01/2016 Patient Education: Patient Medication Summary Completed 04/26/2016 Care Plan: RML COMPREHEN METABOLIC PANEL LOINC : 54194-2 Pending 04/26/2016 Care Plan: RML ASSAY THYROID STIM HORMONE Pending 04/26/2016 Care Plan: RML ASSAY OF FREE THYROXINE Pe nding 04/26/2016 Care Plan: RML A1C HPLC LOINC : 86264-6 Pending 04/26/2016 Referral: Aditya Stone WPtel: [address] [place] [address] Drive [address] [id number] Arrival time is 10:00 Am~sl Appointment Confirme d 11/25/2015 Visit Plan: Had fasting lab done this AM Continue PT for right shoulder Continue current meds Referral to Dr. Temo Stone for incontinence 11/08/2015 Appointment: Jayna Vanessa WPtel: [phone] [phone] 11/06 confirmed-sp FOLLOW UP 11/08/2015 Patient Education: Patient Medication Summary Completed 11/08/2015 Appointment: Jayna Vanessa WPtel: [phone] [phone] 10/19 rescheduled ~sl RESCHEDULED 10/24/2015 Appointment: Jayna Vanessa WPtel: [phone] [phone] US 10/10rang and rang ~sl RESCHEDULED 6 Patient Education: Patient Medication Summary Completed 10/12/2015 Care Plan: RML COMPREHEN METABOLIC PANEL LOINC : 40392-7 Pending 10/12/2015 Care Plan: RML ASSAY THYROID STIM HORMONE Pending 10/12/2015 Care Plan: RML ASSAY OF FREE THYROXINE Pe nding 10/12/2015 Care Plan: RML LIPID PANEL LOINC : 97130 -1 Pending 10/12/2015 Care Plan: CBC Pending 10/12/2015 Care Plan: RML A1C HPLC LOINC : 44428-5 Pending 10/12/2015 Care Plan: VITAMIN D TOTAL (25 HYDROXY) P ending 10/12/2015 Appointment: Jayna Vanessa WPtel: [phone] [phone] [place] CANCELED 09/22/2015 Visit Plan: Lab discussed Change thyroid med back to brand synthroid and recheck thyroid lab in 3mos 07/19/2015 Appointment: Jayna Vanessa WPtel: [phone] [phone] 07/18/15 appt confirmed cn FOLLOW UP 07/19 Patient Education: Patient Medication Summary Completed 07/19/2015 Patient Education: Patient Medication Summary Completed 07/12/2015 Visit Plan: Lab discussed Change synthro id to 150mcg all days but M, W, F will change to 175mcg Check Lab and fwup in 3mos Flu shot given 03/28/2015 Appointment: Jayna Vanessa WPtel: [phone] [phone] 03/25 rang for 1:40 seconds 03/28/ appt confirmed cn FOLLOW UP 03/28/2015 Patient Education: Patient Medication Summary Completed 03/28/2015 Patient Education: Patient Medication Summary Completed 03/21/2015 Visit Plan: Continuue fluoxetine at high er dose Increase synthroid to 150mcg as ordered Decrease propranolol to 20mg po BID Check thyroid lab and fwup in 2mos Prevnar 13 given 02/08/2015 Appointment: Jayna Vanessa WPtel: [facility]1 [phone] FOLLOW UP 02/08/2015 Patient Education: Patient Medication Summary Completed 02/08/2015 Visit Plan: Check CBC, CMP, TSH, Free T4 , uric acid, lactate now Increase fluoxetine to 40mg daily Recheck in 1month Notify if worsening Culture urine 01/11/2015 Appointment: Jayna Vanessa WPtel: [phone] [phone] ACUTE ILLNESS 01/11/2015 Patient Education: Patient Medication Summary Completed 01/11/2015 Visit Plan: Lab discussed Accuchecks lucian ly Medrol dose pack Rx for back brace 11/24/2014 Appointment: Jayna Vanessa WPtel: [phone] [phone] 11/23 confirmed -mf FOLLOW UP 11/24/2014 Patient Education: Patient Medication Summary Completed 11/24/2014 Appointment: Galina Leos WPtel: [address] [place], [place] [phone] ER Follow UP 11/19/2014 Patient Education: Patient Medication Summary Completed 11/19/2014 Appointment: Conchita Capone WPtel: [address] [place], [place] [phone] ACUTE ILLNESS 10/27/2014 Patient Education: Patient Medication Summary Completed 10/27/2014 Patient Education: [facility] - Saving AutoInj - 18+ - Dynamic Portal ID Completed 10/27/2014 Appointment: Conchita Capone WPtel: [address] [place], [place] [phone] ACUTE ILL[facility] 09/23/2014 Patient Education: Patient Medication Summary Completed 09/23/2014 Visit Plan: Lab discussed Continue curre nt meds 07/28/2014 Appointment: Jayna Vanessa WPtel: [address] [place], [place] [phone] 07/27 FOLLOW UP 07/28/2014 Patient Education: Patient Medication Summary Completed 07/28/2014 Patient Education: Patient Medication Summary Completed 07/21/2014 Patient Education: Patient Medication Summary Completed 04/27/2014 Appointment: Jayna Vanessa WPtel: [address] [place], [place] [phone] 03/29 FOLLOW UP 03/30/2014 Patient Education: Patient Medication Summary Completed 03/30/2014 Patient Education: [facility] - Saving AutoInj - 18+ - Dynamic Portal ID Completed 03/30/2014 Visit Plan: Lab discussed DC Vytorin Tri al of Lipitor 80mg q HS Continue Trilipix Check Lipids/CMP/thyroid and HbA1C in 4mos then fwup 11/24/2013 Appointment: Jayna Vanessa WPtel: [address] [place], [place] [phone] FOLLOW UP 11/24/2013 Patient Education: Patient Medication Summary Completed 11/24/2013 Patient Education: [facility] - Saving AutoInj - 18+ - Dynamic Portal ID Completed 11/24/2013 Visit Plan: Lab discussed Daily accuchec ks Cont current meds 08/25/2013 Appointment: Jayna Vanessa WPtel: [address] [place], [place] [phone] 08/24 FOLLOW UP 08/25/2013 Patient Education: Patient Medication Summary Completed 08/25/2013 Appointment: Jayna Vanessa WPtel: [address] [place], [place] [phone] FOLLOW UP 08/05/2013 Visit Plan: Continue Wellbutrin/Fluoxeti ne Fasting lab and fwup in 2mos 06/29/2013 Appointment: Jayna Vanessa WPtel: [address] [place], [place] [phone] 06/26 left [facility] FOLLOW UP 06/29/2013 Patient Education: Patient Medication Summary Completed 06/29/2013 Visit Plan: Increase Wellbutrin to 300mg daily Add fluoxetine 20mg daily 05/26/2013 Appointment: Jayna Vanessa WPtel: [address] [place], [place] [phone] FOLLOW UP 05/26/2013 Patient Education: Patient Medication Summary Completed 05/26/2013 Visit Plan: OK to proceed with planned [facility] surgery next week Continue current meds Check fasting lab--CBC, CMP, TSH, free T4, HbA1C, Lipids, Vit D at end of this week prior to surgery 05/06/2013 Appointment: Jayna Vanessa WPtel: [address] [place], [place] [phone] FOLLOW UP 05/06/2013 Patient Education: Patient Medication Summary Completed 05/06/2013 Appointment: Jayna Vanessa WPtel: [address] [place], [place] [phone] ACUTE ILLNESS 04/23/2013 Patient Education: Patient Medication Summary Completed 04/23/2013 Patient Education: [facility] - Saving AutoInj - 18+ - Dynamic Portal ID Completed 04/23/2013 Visit Plan: Decrease Lasix to 20mg daily Leave potassium at 20meq daily Check Chem 7 in 1wk 03/31/2013 Appointment: Jayna Vanessa WPtel: [address] [place], [place] [phone] FOLLOW UP 03/31/2013 Patient Education: Patient Medication Summary Completed 03/31/2013 Appointment: Conchita Capone WPtel: [address] [place], [place] [phone] ACUTE ILLNESS 03/05/2013 Patient Education: Patient Medication Summary Completed 03/05/2013 Visit Plan: Lab discussed Continue curre nt meds Pt is going to start allergy injections Go for port placement to continue prolastin infusions 02/04/2013 Appointment: Jayna Vanessa WPtel: [address] [place], [place] [phone] ACUTE ILLNESS 02/04/2013 Patient Education: Patient Medication Summary Completed 02/04/2013 Visit Plan: 2-D ECHO discussed See Pulmo nology Pt states cough had went away with allergy meds and then has came back Continue allergy meds and add pepcid BID Discussed allergy testing 11/27/2012 Appointment: Jayna Vanessa WPtel: [address] [place], [place] [phone] FOLLOW UP 11/27/2012 Patient Education: Patient Medication Summary Completed 11/27/2012 Visit Plan: PFTS discussed Proceed with 2-D ECHO and pulmonology evaluation Pt was concerned propranolol could be cause but discussed this is likely not culpri HOMERO was DCed in 2009, is on PPI, has seen ENT, will restart allergy meds--may need allergy testing 11/11/2012 Appointment: Jayna Vanessa WPtel: [facility]7 [phone] FOLLOW UP 11/11/2012 Patient Education: Patient Medication Summary Completed 11/11/2012 Visit Plan: Hold metformin Check CMP, Li pids, TSH, Free T4, HbA1C Check PFTs 10/20/2012 Appointment: Jayna Vanessa WPtel: [address] [place], [place] [phone] 10/17 left message FOLLOW UP 10/20/2012 Patient Education: Patient Medication Summary Completed 10/20/2012 Appointment: Jayna Vanessa WPtel: [address] [place], [place] [phone] 10/13 vm FOLLOW UP 10/14/2012 Visit Plan: Discussed fluids and rest. W ill monitor for worsening symptoms/fever. Azithromycin, medrol dose pack and refil on cough syrup. Pt. will notify if symptoms worsen or persist. 09/03/2012 Appointment: Lizzie Kelly WPtel: [address] [place], [place] [phone] ACUTE ILLNESS 09/03/2012 Patient Education: Patient Medication Summary Completed 09/03/2012 Visit Plan: discussed that symptoms star edvin around [place] time. Will begin culturelle BID and monitor for fever or worsening symptoms. Fluid intake important. CBC, CMP, sed rate and stool studies. Order written for Mag lab. 07/23/2012 Appointment: Lizzie Kelly WPtel: [address] [place], [place] [phone] ACUTE ILLNESS 07/23/2012 Patient Education: Patient Medication Summary Completed 07/23/2012 Visit Plan: Increase Metformin to 1000mg po BID Accuchecks daily Continue rest of meds at current dose and low-fat, low-sugar diet with increased exercise Check fasting lab in 4mos Restart Nexium 05/20/2012 Appointment: Jayna Vanessa WPtel: [phone] [phone] patient had bad night so missed 05/06 appt...left voicemail 05/19 FOLLOW UP 05/20/2012 Patient Education: Patient Medication Summary Completed 05/20/2012 Appointment: Jayna Vanessa WPtel: [address] [place], [place] [phone] patient had bad night so missed 05/06 appt time. FOLLOW UP 05/06/2012 Appointment: Galina Leos WPtel: [address] [place], [place] [phone] ACUTE ILLNESS 04/04/2012 Patient Education: Patient Medication Summary Completed 04/04/2012 Visit Plan: Cryotherapy as above 02/20/2012 Appointment: Jayna Vanessa WPtel: [address] [place], [place] [phone] 02/18 OFFICE SURGERY 02/20/2012 Patient Education: Patient Medication Summary Completed 02/20/2012 Visit Plan: Increase Metfromin to 1000mg daily Continue all other current meds 01/02/2012 Appointment: Jayna Vanessa WPtel: [address] [place], [place] [phone] FOLLOW UP 01/02/2012 Patient Education: Patient Medication Summary Completed 01/02/2012 Appointment: Lizzie Kelly WPtel: [address] [place], [place] [phone] ACUTE ILLNESS 09/04/2011 Patient Education: Patient Medication Summary Completed 09/04/2011 Visit Plan: Finish Keflex Proceed with c olonoscopy Increase aspirin to 325mg daily for next 2wks Add Vimovo 20/500mg po Daily 08/14/2011 Appointment: Jayna Vanessa WPtel: [address] [place], [place] [phone] [facility] Follow Up 08/14/2011 Patient Education: Patient Medication Summary Completed 08/14/2011 Appointment: Lizzie Kelly WPtel: [address] [place], [place] [phone] ACUTE ILLNESS 07/31/2011 Patient Education: Patient Medication Summary Completed 07/31/2011 Visit Plan: Doxy and steroids. Codeine/g uiaf cough syrup. Pt. will monitor for worsening symptoms and notify if fever occurs. Encouraged rest and fluids. 07/25/2011 Appointment: Lizzie Kelly WPtel: [address] [place], [place] [phone] ACUTE ILLNESS 07/25/2011 Patient Education: Patient Medication Summary Completed 07/25/2011 Visit Plan: Check full lab in 3mos Radha nue with all current meds Continue PT for knee 07/12/2011 Appointment: Jayna Vanessa WPtel: [address] [place], [place] [phone] FOLLOW UP 07/12/2011 Patient Education: Patient Medication Summary Completed 07/12/2011 Visit Plan: Continue symbicort for 2 mor e weeks 05/09/2011 Appointment: Jayna Vanessa WPtel: [address] [place], [place] [phone] FOLLOW UP 05/09/2011 Patient Education: Patient Medication Summary Completed 05/09/2011 Appointment: Jayna Vanessa WPtel: [address] [place], [place] [phone] ER Follow UP 05/02/2011 Patient Education: Patient Medication Summary Completed 05/02/2011 Visit Plan: Pt. has recently finished ro und of Cefdinir with no improvement. Chest x-ray, CBC, CMP and mycoplasma order given to pt. Pt. will start Doxycycline. 04/25/2011 Appointment: Lizzie Kelly WPtel: [address] [place], [place] [phone] FOLLOW UP 04/25/2011 Patient Education: Patient Medication Summary Completed 04/25/2011 Appointment: Lizzie Kelly WPtel: [address] [place], [place] [phone] ACUTE ILLNESS 04/04/2011 Patient Education: Patient Medication Summary Completed 04/04/2011 Appointment: Lizzie Kelly WPtel: [address] [place], [place] [phone] ACUTE ILLNESS 04/03/2011 Visit Plan: Decrease Synthroid to 150mcg daily Repeat TSH and Free T4 in 2mos Knee injection as above 03/01/2011 Appointment: Jayna Vanessa WPtel: [address] [place], [place] [phone] 03/01/2011 Patient Education: Patient Medication Summary Completed 03/01/2011 Visit Plan: Increase Synthroid to 175mcg po daily Check TSH, Free T4 in 8wks Injection given to knee as above Continue Pt 01/04/2011 Appointment: Jayna Vanessa WPtel: [address] [place], [place] [phone] FOLLOW UP 01/04/2011 Patient Education: Patient Medication Summary Completed 01/04/2011 Visit Plan: Septra DS, Mupirocin topical . Pt. will observe wound and report worsening symptoms. 12/07/2010 Appointment: Lizzie Kelly WPtel: [address] [place], [place] [phone] ACUTE ILLNESS 12/07/2010 Patient Education: Patient Medication Summary Completed 12/07/2010 Visit Plan: Increase Synthroid to 150mcg po daily Add Metformin Diet and exercise discussed at length again Repeat thyroid US Add Vit D level Will see if polydipsia improves with metformin 10/09/2010 Appointment: Jayna Vanessa WPtel: [address] [place], [place] [phone] FOLLOW UP 10/09/2010 Patient Education: Patient Medication Summary Completed 10/09/2010 Visit Plan: Increase Synthroid to 125mcg daily Decrease Vit D 50,000 u three times a week Discussed HRT Proceed with sleep study Fwup pending sleep study results 08/07/2010 Appointment: Jayna Vanessa WPtel: [address] [place], [place] [phone] FOLLOW UP 08/07/2010 Patient Education: Patient Medication Summary Completed 08/07/2010 Visit Plan: Decrease Synthroid to 100mcg QD Check thyroid lab in 2mos Check estradiol levels in 2mos--discussed HRT Increase Vit D 50,000u to 1 daily M-F 06/06/2010 Appointment: Jayna Vanessa WPtel: [address] [place], [place] [phone] ACUTE ILLNESS 06/06/2010 Patient Education: Patient Medication Summary Completed 06/06/2010 Visit Plan: Injections to knees as above 04/12/2010 Appointment: Jayna Vanessa WPtel: [address] [place], [place] [phone] US OFFICE SURGERY 04/12/2010 Patient Education: Patient Medication Summary Completed 04/12/2010 Visit Plan: Decrease Synthroid to 175mcg QD Check lab in 2mos Change daily Vit D to weekly 03/20/2010 Appointment: Jayna Vanessa WPtel: [address] [place], [place] [phone] ESTABLISHED PATIENT 03/20/2010 Patient Education: Patient Medication Summary Completed 03/20/2010 Appointment: Jayna Vanessa WPtel: [address] [place], [place] [phone] ACUTE ILLNESS 01/30/2010 Patient Education: Patient Medication Summary Completed 01/30/2010 Appointment: Jayna Vanessa WPtel: [address] [place], [place] [phone] ACUTE ILLNESS 01/09/2010 Patient Education: Patient Medication Summary Completed 01/09/2010 Appointment: Jayna Vanessa WPtel: [address] [place], [place] [phone] BP CHECK 11/07/2009 Patient Education: Patient Medication Summary Completed 11/07/2009 Appointment: Jayna Vanessa WPtel: [address] [place], [place] [phone] OFFICE SURGERY 10/26/2009 Patient Education: Patient Medication Summary Completed 10/26/2009 Appointment: Lizzie Kelly WPtel: [address] [place], [place] [phone] OFFICE SURGERY 10/17/2009 Patient Education: Patient Medication [...] up appnt. 10/04/2009 Appointment: Lizzie Kelly WPtel: [address] [place], [place] [phone] ACUTE ILLNESS 10/04/2009 Patient Education: Patient Medication Summary Completed 10/04/2009 Visit Plan: E-scribed refils. Pt. report s that she normally has lab work drawn and orders are given (faxed) to her normal lab facility by Patricia. Pt. states her migraine headaches have abated for now and that she is going to see her migraine doctor in [place] in the near future(Dr Cook) Pt will seek re-eval as necessary for acute issues. 09/21/2009 Appointment: Lizzie Kelly WPtel: [address] [place], [place] [phone] US CHECK UP 09/21/2009 Patient Education: Patient Medication Summary Completed 09/21/2009 Appointment: Lizzie Kelly WPtel: [address] [place], [place] [phone] US CHECK UP 09/20/2009 Appointment: Lizzie Kelly WPtel: [address] [place], [place] [phone] US FOLLOW UP 09/19/2009 Referral: Alf Lang WPtel: #1 [facility] [place] Referral Appointment Requested Referral: Singh Pina WPtel: [address] [facility] [id number] [place] Referral Appointment Requested Referral: Aditya Stone WPtel: [address] [id number] [place] Referral Appointment Requested Instructions Comment Date [...] going to see her migraine doctor in [place] in the near future(Dr Cook) Pt will [...]
--- OUTSIDE RECORDS SUMMARY | 2022-09-10 17:06 | XMS REPORT | CCD ---
Author Author Marcella Vanessa D.O. 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 Name Role Phone Jayna Vanessa D.O., PP Unavailable CCM Unavailable Summary Purpose Interface Exchange Insurance Providers Payer name Policy type / Coverage type Covered republican ID Effective Begin Date Effective End Date AET[employer] Commercial Insurance [id number] Unknown Commercial Insurance [id number] Unknown Family history Side Diagnosis Age At Onset Heart disease Unknown Diabetes Unknown Sister Diagnosis Age At Onset Diabetes Unknown Brother Diagnosis Age At Onset Diabetes Unknown Mother Diagnosis Age At Onset Heart disease Unknown Father Diagnosis Age At Onset Heart disease Unknown Social History Social History Element Codes Description Effective Dates Tobacco history SNOMED CT: 053145834 Never smoker 04/04/2011 Marital status Unknown 09/21/2009 [...] Problems Condition Codes Effective Dates Condition Status Essential (primary) hypertension ICD-10: I10 ICD-9: 401.9 [...] Vertigo ICD-10: R42 ICD-9: 780.4 09/12/2017 Active Cervicalgia ICD-10: M54.2 ICD-9: 723.1 10/16/2017 Active Arthritis of finger of right hand [...] gastroenteritis ICD-10: K52.9 ICD-9: 558.9 07/05/2020 Active 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 11/28/2016 Active [...] ANXIETY STATE NOS ICD-9: 300.00 03/05/2013 Active Lavbu-5-vznoodywvns 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 02/04/2013 A ctive DYSPNEA [...] 24 hr tablet, extended release RxNor m: 974866 TAKE 1 Tablet BY MOUTH DAILY IN THE MORNING (replaces 150mg DOSE) 08/29/2022 02/24/2023 Active levothyroxine 150 mcg tablet RxNorm: 845228 TAKE ONE TA BLET BY MOUTH EVERY IN THE MORNING 08/29/2022 02/24/2023 Active ciprofloxacin 250 mg tablet RxNorm: 806308 Take 1 Tablet(s) Ora l Q12H 06/29/2022 07/03/2022 Inactive levothyroxine 150 mcg tablet RxNorm: 781293 Take 1 Tablet(s) Or al QAM 06/03/2022 06/03/2022 Inactive Wellbutrin XL 300 mg 24 hr tablet, extended release RxNorm: 635118 Take 1 Tablet(s) Oral QAM replaces 150mg dose 05/28/2022 05/28/2022 Inactive Xyzal 5 mg tablet RxNorm: 834346 Take 1 Tablet(s) Oral QPM 05/10/2010/06/2022 Active Claritin 10 mg tablet RxNorm: 859329 Take 1 Tablet(s) Oral QAM 04/2409/06/2022 Active Flonase Allergy Relief 50 mcg/actuation nasal spray,suspensi on RxNorm: 2359081 Take 1 Ambler Nasal two times a day 05/10/2022 06/08/2022 Inactive Wellbutrin XL 150 mg 24 hr tablet, extended release RxNorm: 625761 Take 1 Tablet(s) Oral QAM 05/10/2022 05/27/2022 Inactive sumatriptan 100 mg tablet RxNorm: 880070 1 Tablet(s) Or al after onset of migraine; may repeat after 2 hours if headache returns, not to exceed 200mg in 24hrs replaces rizatriptan 04/19/2022 04/19/2022 Inactive sumatriptan 100 mg tablet RxNorm: 726353 1 Tablet(s) Or al after onset of migraine; may repeat after 2 hours if headache returns, not to exceed 200mg in 24hrs replaces rizatriptan 04/19/2022 04/19/2022 Inactive propranolol 20 mg tablet RxNorm: 627664 TAKE 1 TABLET BY MOUTH TWICE DAILY 04/18/2022 10/14/2022 Active rizatriptan 10 mg disintegrating tablet RxNorm: 292067 Take 1 Tablet(s) Oral on top of tongue, allow to dissolve then swallow once, may repeat every 2 hrs; max 30 mg/24hrs 04/18/2022 04/18/2022 Inactive prednisone 20 mg tablet RxNorm: 681247 Take 1 Tablet(s) Oral tw o times a day 02/15/2022 02/21/2022 Inactive Nurtec ODT 75 mg disintegrating tablet RxNorm: 9176955 T bria 1 Tablet(s) Oral per 24 hours as needed for migraine 02/09/2022 02/09/2022 Inactive Nurtec ODT 75 mg disintegrating tablet RxNorm: 9247596 T bria 1 Tablet(s) Oral per 24 hours as needed for migraine 02/09/2022 02/09/2022 Inactive fluticasone propionate 50 mcg/actuation nasal spray,suspensi on RxNorm: 6916373 SPRAY ONE SPRAY IN EACH NOSTRIL TWICE DAILY NEEDED 02/05/20222021 Inactive levothyroxine 150 mcg tablet RxNorm: 891074 Take 1 Tablet(s) Or al QAM 02/04/2022 02/04/2022 Inactive albuterol sulfate HFA 90 mcg/actuation aerosol inhaler RxNor m: 5536174 Inhale 2 Puff(s) Oral Q4H as needed 01/05/2022 04/04/2022 Inactive pantoprazole 40 mg tablet,delayed release RxNorm: 287122 Take 1 Tablet(s) Oral QD 01/04/2022 07/02/2022 Inactive propranolol 20 mg tablet RxNorm: 305217 TAKE 1 TABLET BY MOUTH TWICE DAILY 01/04/2022 04/17/2022 Inactive levothyroxine 150 mcg tablet RxNorm: 892651 Take 1 Tablet(s) Or al QAM 12/05/2021 12/05/2021 Inactive metronidazole 500 mg tablet RxNorm: 701061 Take 1 Table t(s) Oral two times a day 11/29/2021 12/05/2021 Inactive Singulair 10 mg tablet RxNorm: 406046 Take 1 Tablet(s) Oral QPM 06/202105/09/2022 Inactive Diflucan 100 mg tablet RxNorm: 975580 Take 1 Tablet(s) Oral QD 06/202111/28/2021 Inactive pantoprazole 40 mg tablet,delayed release RxNorm: 083975 Take 1 Tablet(s) Oral QD 11/06/2021 11/06/2021 Inactive fluticasone propionate 50 mcg/actuation nasal spray,suspensi on RxNorm: 7530582 SPRAY ONE SPRAY IN EACH NOSTRIL TWICE DAILY NEEDED 11/03/20212021 Inactive scopolamine 1 mg over 3 days transdermal patch RxNorm: 03560 2 Apply 1 Unit Dose Transdermal Q72H behind ear 10/30/2021 02/05/2022 Inactive albuterol sulfate HFA 90 mcg/actuation aerosol inhaler RxNor m: 8036661 Inhale 2 Puff(s) Oral Q4H as needed 10/05/2021 11/24/2021 Inactive pantoprazole 40 mg tablet,delayed release RxNorm: 350881 Take 1 Tablet(s) Oral QD 10/05/2021 10/05/2021 Inactive meloxicam 7.5 mg tablet RxNorm: 666352 Take 1 Tablet(s) Oral QD for pain 09/05/2021 09/11/2021 Inactive baclofen 10 mg tablet RxNorm: 715371 Take 0.5-1 Tablet( s) Oral three times per week as needed for muscle spasm 09/05/2021 02/05/2022 Inactive prednisone 20 mg tablet RxNorm: 050871 Take 1 Tablet(s) Oral QD 08/202108/28/2021 Inactive pantoprazole 40 mg tablet,delayed release RxNorm: 693652 Take 1 Tablet(s) Oral QD 07/07/2021 09/04/2021 Inactive fluticasone propionate 50 mcg/actuation nasal spray,suspensi on RxNorm: 7033645 Take 1 Ambler Nasal two times a day in each nostrilas needed 07/04/2021 10/01/2021 Inactive Decadron 6 mg tablet RxNorm: 514481 Take 1 Tablet(s) Oral QD 202107/08/2021 Inactive albuterol sulfate HFA 90 mcg/actuation aerosol inhaler RxNor m: 7050627 Inhale 2 Puff(s) Oral Q4H as needed 06/08/2021 09/05/2021 Inactive propranolol 20 mg tablet RxNorm: 470959 TAKE 1 TABLET BY MOUTH TWICE DAILY 06/08/2021 06/08/2021 Inactive pantoprazole 40 mg tablet,delayed release RxNorm: 825038 Take 1 Tablet(s) Oral QD 04/09/2021 06/07/2021 Inactive ProAir HFA 90 mcg/actuation aerosol inhaler RxNorm: 261352 2 Puff(s) Inhalation Q4H as needed 03/13/2021 03/13/2021 Inactive citalopram 10 mg tablet RxNorm: 519176 1 Tablet(s) Oral two antonio es a day 03/13/2021 02/05/2022 Inactive levothyroxine 150 mcg tablet RxNorm: 594747 TAKE 1 Tabl et BY MOUTH EVERY MORNING (REPLACES 137 MCG DOSE) 03/09/2021 03/09/2021 Inactive pantoprazole 40 mg tablet,delayed release RxNorm: 498609 Take 1 Tablet(s) Oral QD 02/08/2021 04/08/2021 Inactive triamcinolone acetonide 0.1 % topical cream RxNorm: 6971991 Take Application Topical two times a day to arm rash 01/19/2021 01/19/2021 Inactive prednisone 20 mg tablet RxNorm: 617160 Take 1 Tablet(s) Oral QD 01/23/2021 Inactive levothyroxine 150 mcg tablet RxNorm: 709589 Take 1 Tabl et(s) Oral QAM replaces 137mcg dose 01/03/2021 01/03/2021 Inactive prednisone 20 mg tablet RxNorm: 019383 Take 2 Tablet(s) Oral QD 01/202112/03/2020 Inactive promethazine-DM 6.25 mg-15 mg/5 mL oral syrup RxNorm: 077146 Take 5 Milliliter(s) Oral Every 6 hours as needed, not to exceed 30 mL in 24 hours 11/29/2020 12/03/2020 Inactive doxycycline hyclate 100 mg capsule RxNorm: 0670131 1 Cap kimi(s) Oral two times a day 09/29/2020 10/05/2020 Inactive Lalita-D 12 Hour 60 mg-120 mg tablet,extended release RxNor m: 256402 1 Tablet(s) Oral QD 09/19/2020 10/03/2020 Inactive ProAir HFA 90 mcg/actuation aerosol inhaler RxNorm: 160761 2 Inhalation Q4H as needed 09/19/2020 09/19/2020 Inactive propranolol 20 mg tablet RxNorm: 615583 TAKE 1 TABLET BY MOUTH TWICE DAILY 09/15/2020 09/15/2020 Inactive pantoprazole 40 mg tablet,delayed release RxNorm: 471027 1 Tabl et(s) Oral QD 09/09/2020 09/08/2020 Inactive pantoprazole 40 mg tablet,delayed release RxNorm: 317923 1 Tabl et(s) Oral QD 09/09/2020 11/07/2020 Inactive propranolol 20 mg tablet RxNorm: 441689 TAKE 1 TABLET BY MOUTH TWICE DAILY 08/24/2020 09/09/2020 Inactive levothyroxine 137 mcg tablet RxNorm: 271711 1 Tablet(s) Oral QD 08/202001/02/2021 Inactive pourincu-whvurdacx-abcadstj 3.5 mg/mL-10,000 unit/mL-0 .1% eye drops RxNorm: 531074 4 Drop(s) Otic three times a day 08/10/2020 02/05/2022 Inactive prednisone 20 mg tablet RxNorm: 004179 1 Tablet(s) Oral two antonio es a day 08/01/2020 08/08/2020 Inactive pantoprazole 40 mg tablet,delayed release RxNorm: 278413 1 Tabl et(s) Oral QD 07/13/2020 09/08/2020 Inactive ondansetron HCl 4 mg tablet RxNorm: 428326 1 Tablet(s) Oral Q4H as needed for nausea 07/13/2020 05/09/2022 Inactive levothyroxine 137 mcg tablet RxNorm: 984201 1 Tablet(s) Oral QD 08/23/2020 Inactive pantoprazole 40 mg tablet,delayed release RxNorm: 265731 1 Tabl et(s) Oral QD 07/13/2020 07/12/2020 Inactive ondansetron HCl 4 mg tablet RxNorm: 214941 1 Tablet(s) Oral Q4H as needed for nausea 07/05/2020 07/12/2020 Inactive Flagyl 500 mg tablet RxNorm: 240861 1 Tablet(s) Oral three time s a day 07/05/2020 07/12/2020 Inactive Fish Oil 1,000 mg (120 mg-180 mg) capsule RxNorm: 1 Caps ule(s) Oral QD 06/23/2020 09/18/2020 Inactive rosuvastatin 10 mg tablet RxNorm: 257242 1 Tablet(s) Oral MWF 06/2306/22/2020 Inactive rosuvastatin 10 mg tablet RxNorm: 635333 1 Tablet(s) Oral MWF 06/2302/05/2022 Inactive fluconazole 100 mg tablet RxNorm: 902389 1 Tablet(s) Oral QOD 05/1706/21/2020 Inactive Macrobid 100 mg capsule RxNorm: 705139 1 Capsule(s) Oral two ti mes a day 05/17/2020 05/24/2020 Inactive levothyroxine 137 mcg tablet RxNorm: 352863 TAKE 1 TABLET BY [facility] ONCE DAILY 05/16/2020 07/12/2020 Inactive Eliquis 5 mg tablet RxNorm: 3218649 1 Tablet(s) Oral two times a da y 04/25/2020 02/05/2022 Inactive propranolol 20 mg tablet RxNorm: 358249 TAKE 1 TABLET BY MOUTH TWICE DAILY 04/25/2020 08/23/2020 Inactive doxycycline hyclate 100 mg capsule RxNorm: 8962764 1 Cap kimi(s) Oral two times a day 03/24/2020 03/31/2020 Inactive doxycycline hyclate 100 mg capsule RxNorm: 6206286 1 Cap kimi(s) Oral two times a day 03/24/2020 03/23/2020 Inactive propranolol 20 mg tablet RxNorm: 551192 TAKE 1 TABLET BY MOUTH TWICE DAILY 03/15/2020 04/13/2020 Inactive Eliquis 5 mg tablet RxNorm: 9155943 1 Tablet(s) Oral two times a da y 03/14/2020 04/24/2020 Inactive Eliquis 5 mg tablet RxNorm: 8538352 1 Tablet(s) Oral two times a da y 03/14/2020 03/13/2020 Inactive levofloxacin 500 mg tablet RxNorm: 574934 1 Tablet(s) Oral QD 02/1802/26/2020 Inactive levofloxacin 500 mg tablet RxNorm: 310379 1 Tablet(s) Oral QD 02/1802/18/2020 Inactive Tessalon Perles 100 mg capsule RxNorm: 549087 1 Capsule (s) Oral three times a day as needed 02/16/2020 02/25/2020 Inactive levothyroxine 137 mcg tablet RxNorm: 371073 TAKE 1 TABLET BY [facility] ONCE DAILY 02/15/2020 03/15/2020 Inactive ProAir HFA 90 mcg/actuation aerosol inhaler RxNorm: 014469 2 Inhalation Q4H as needed 02/11/2020 09/18/2020 Inactive Medrol (Isaiah) 4 mg tablets in a dose pack RxNorm: 102296 Tablet( s) Oral 02/11/2020 02/11/2020 Inactive levothyroxine 137 mcg tablet RxNorm: 473710 TAKE 1 TABLET BY [facility] ONCE DAILY 12/16/2019 01/14/2020 Inactive propranolol 20 mg tablet RxNorm: 352006 TAKE 1 TABLET BY MOUTH TWICE DAILY 12/16/2019 01/14/2020 Inactive levothyroxine 137 mcg tablet RxNorm: 600439 TAKE 1 TABLET BY [facility] ONCE DAILY 10/16/2019 11/14/2019 Inactive prednisone 20 mg tablet RxNorm: 063591 1 Tablet(s) Oral two times a day for rash/hives 09/29/2019 10/04/2019 Inactive Probiotic 10 billion cell capsule RxNorm: 0488247 1 Capsule(s) O ral QD 09/14/2019 02/10/2020 Inactive Bactrim DS 800 mg-160 mg tablet RxNorm: 622951 1 Tablet(s) Oral two times a day 09/14/2019 09/13/2019 Inactive citalopram 10 mg tablet RxNorm: 448509 1 Tablet(s) Oral two antonio es a day 09/14/2019 12/20/2019 Inactive hydroxychloroquine 200 mg tablet RxNorm: 297755 1 Table t(s) Oral two times a day 09/14/2019 02/05/2022 Inactive Bactrim DS 800 mg-160 mg tablet RxNorm: 654506 1 Tablet(s) Oral two times a day 09/14/2019 09/24/2019 Inactive Cipro 250 mg tablet RxNorm: 483392 1 Tablet(s) Oral two times a day 09/02/2019 09/08/2019 Inactive levothyroxine 137 mcg tablet RxNorm: 239668 1 Tablet(s) Oral QD 10/10/2019 Inactive levothyroxine 137 mcg tablet RxNorm: 773968 1 Tablet(s) Oral QD 08/11/2019 Inactive propranolol 20 mg tablet RxNorm: 275417 TAKE 1 TABLET BY MOUTH TWICE DAILY 06/18/2019 12/14/2019 Inactive 06/18/2019 11:09:41 AM Cipro 250 mg tablet RxNorm: 565619 1 Tablet(s) Oral two times a day 04/17/2019 04/16/2019 Inactive Cipro 250 mg tablet RxNorm: 827058 1 Tablet(s) Oral two times a day 04/17/2019 04/24/2019 Inactive Macrobid 100 mg capsule RxNorm: 779677 1 Capsule(s) Oral two ti mes a day 04/15/2019 04/16/2019 Inactive metronidazole 500 mg tablet RxNorm: 539070 1 Tablet(s) Oral thr ee times a day 03/18/2019 03/28/2019 Inactive Bactrim DS 800 mg-160 mg tablet RxNorm: 283694 1 Tablet(s) Oral two times a day 03/18/2019 03/18/2019 Inactive Cipro 250 mg tablet RxNorm: 888177 1 Tablet(s) PO BID 01/26/201901/22 Inactive Flagyl 500 mg tablet RxNorm: 212593 1 Tablet(s) PO TID 01/26/201904/2019 Inactive prednisone 20 mg tablet RxNorm: 585733 1 Tablet(s) PO B ID for 4 days then 1 po daily for 4 days 01/08/2019 03/17/2019 Inactive doxycycline hyclate 100 mg capsule RxNorm: 4393167 1 Capsule(s) PO BID 01/08/2019 01/14/2019 Inactive doxycycline hyclate 100 mg capsule RxNorm: 7741602 1 Capsule(s) PO BID 01/08/2019 01/07/2019 Inactive propranolol 20 mg tablet RxNorm: 239862 1 Tablet(s) PO BID 12/24/1906/17/2019 Inactive Bactrim DS 800 mg-160 mg tablet RxNorm: 451873 1 Tablet (s) PO BID repeat urine culture 48 hours after antibiotics completed. 12/15/2018 12/14/2018 In active Bactrim DS 800 mg-160 mg tablet RxNorm: 416514 1 Tablet (s) PO BID repeat urine culture 48 hours after antibiotics completed. 12/15/2018 12/19/2018 In active levothyroxine 137 mcg tablet RxNorm: 244343 1 Tablet(s) PO QD 12/0906/06/2019 Inactive meclizine 25 mg tablet RxNorm: 996123 1 Tablet(s) PO TID for di zziness 10/30/2018 11/08/2018 Inactive doxycycline hyclate 100 mg tablet RxNorm: 0959629 1 Tablet(s) PO BI D 10/07/2018 10/16/2018 Inactive albuterol sulfate HFA 90 mcg/actuation aerosol inhaler RxNor m: 480669 2 Puff(s) INH Q4H as needed 10/07/2018 02/10/2020 Inactive chlorpheniramine 4 mg tablet RxNorm: 5691601 1 Tablet(s) PO QHS for allergies 10/07/2018 03/17/2019 Inactive Tessalon 200 mg capsule RxNorm: 324889 1 Capsule(s) PO TID 10/08/1910/26/2018 Inactive doxycycline hyclate 100 mg tablet RxNorm: 1410800 1 Tablet(s) PO BI D 10/07/2018 10/06/2018 Inactive Tessalon 200 mg capsule RxNorm: 920010 1 Capsule(s) PO TID 10/08/1910/06/2018 Inactive levothyroxine 137 mcg tablet RxNorm: 621115 1 Tablet(s) PO QD 08/0512/02/2018 Inactive propranolol 20 mg tablet RxNorm: 406020 1 Tablet(s) PO BID 06/23/2012/19/2018 Inactive chlorpheniramine 4 mg tablet RxNorm: 4930110 1 Tablet(s) PO QHS for allergies 06/23/2018 08/21/2018 Inactive levothyroxine 137 mcg tablet RxNorm: 137098 1 Tablet(s) PO QD 06/0308/01/2018 Inactive levothyroxine 137 mcg tablet RxNorm: 353585 1 Tablet(s) PO QD 06/0306/02/2018 Inactive Synthroid 150 mcg tablet RxNorm: 063768 1 Tablet(s) PO QD 04/03/2018 06/22/2018 Inactive Synthroid 150 mcg tablet RxNorm: 765577 1 Tablet(s) PO QD 04/03/2018 04/02/2018 Inactive propranolol 20 mg tablet RxNorm: 288623 1 Tablet(s) PO BID 03/17/20 18 06/14/2018 Inactive propranolol 20 mg tablet RxNorm: 269308 1 Tablet(s) PO BID 03/17/20 18 06/21/2020 Inactive Lancets,Ultra Thin RxNorm: Miscellaneous Use to test blood sugar daily and as needed (Dx: E11.65) 02/28/2018 05/09/2022 Inactive Contour Test Strips RxNorm: Miscellaneous Test b lood sugar daily and as needed (Dx: E11.65) 02/28/2018 05/09/2022 Inactive Contour Meter RxNorm: 1 Miscellaneous DX: E11.65 02/27/20182021 Inactive DX: E11.65 Synthroid 175 mcg tablet RxNorm: 141899 1 Tablet(s) PO QD 01/28/2018 04/02/2018 Inactive Synthroid 175 mcg tablet RxNorm: 150173 1 Tablet(s) PO QD 01/16/2018 04/02/2018 Inactive Medrol (Isaiah) 4 mg tablets in a dose pack RxNorm: 938185 Tablet(s) P O 10/16/2017 01/15/2018 Inactive cyclobenzaprine 7.5 mg tablet RxNorm: 588572 1/2-1 Tablet(s) PO TID as needed 10/16/2017 06/22/2018 Inactive pantoprazole 40 mg tablet,delayed release RxNorm: 339306 1 Tabl et(s) PO QD 08/21/2017 06/22/2018 Inactive Nexium 40 mg capsule,delayed release RxNorm: 057268 1 Capsule(s ) PO QD 08/20/2017 08/20/2017 Inactive doxycycline hyclate 100 mg capsule RxNorm: 3276515 1 Capsule(s) PO BID 08/13/2017 08/12/2017 Inactive doxycycline hyclate 100 mg capsule RxNorm: 8437630 1 Capsule(s) PO BID 08/13/2017 08/19/2017 Inactive Tessalon Perles 100 mg capsule RxNorm: 316969 1 Capsule(s) PO T ID as needed 07/29/2017 08/07/2017 Inactive prednisone 20 mg tablet RxNorm: 327457 1 Tablet(s) PO BID 07/25/2017 07/27/2017 Inactive albuterol sulfate HFA 90 mcg/actuation aerosol inhaler RxNor m: 771401 2 Puff(s) INH Q4H as needed 07/25/2017 10/06/2018 Inactive doxycycline hyclate 100 mg capsule RxNorm: 4249421 1 Capsule(s) PO BID 06/10/2017 06/19/2017 Inactive prednisone 20 mg tablet RxNorm: 375116 1 Tablet(s) PO T ID for 2 days then 1 po BID for 2 days then 1 daily for 3 days 06/10/2017 08/12/2017 Inactive fenofibrate micronized 134 mg capsule RxNorm: 274517 TAKE 1 CAP KIMI DAILY 06/03/2017 06/22/2018 Inactive Zithromax Z-Isaiah 250 mg tablet RxNorm: 150921 Tablet(s) PO Take as directed 05/28/2017 06/09/2017 Inactive prednisone 20 mg tablet RxNorm: 677198 2 Tablet(s) PO QD 05/28/2017 1 08/01/2016 Inactive Tessalon Perles 100 mg capsule RxNorm: 156610 1 Capsule(s) PO T ID as needed 05/28/2017 06/09/2017 Inactive Janumet XR 100 mg-1,000 mg tablet,extended release RxNorm: 1 507630 1 Tablet(s) PO QD 02/14/2017 06/22/2018 Inactive fluoxetine 40 mg capsule RxNorm: 557250 1 Capsule(s) PO QD 02/15/20 17 06/22/2018 Inactive Vitamin D2 50,000 unit capsule RxNorm: 625358 1 Capsule (s) PO TAKE 1 CAPSULE BY MOUTH TWICE WEEKLY 02/11/2017 07/10/2017 Inactive Generic For:* DRISDOL [id number] 02/03/2015 10:10:59 AM Janumet XR 100 mg-1,000 mg tablet,extended release RxNorm: 1 392119 1 Tablet(s) PO QD 09/24/2016 10/06/2018 Inactive Vitamin D2 50,000 unit capsule RxNorm: 924744 Capsule(s ) TAKE 1 CAPSULE BY MOUTH TWICE WEEKLY 09/11/2016 02/11/2017 Inactive Generic For:*DRI SDOL [id number] 02/03/2015 10:10:59 AM Pepcid 20 mg tablet RxNorm: 332971 Tablet(s) PO TAKE 1 TABLET BY MOUTH TWICE DAILY. 06/14/2016 06/13/2016 Inactive fluoxetine 40 mg capsule RxNorm: 335403 1 Capsule(s) PO QD 06/14/20 16 12/10/2016 Inactive loratadine 10 mg tablet RxNorm: 125155 1 Tablet(s) PO QD 1 Tabl et(s) PO BID 06/14/2016 04/03/2017 Inactive [AttnRPh: Saving ryan ly/adjudicate RxGRP:SG20 RxBIN:[id number] RxPCN: ID#:[id number]] Vitamin D2 50,000 unit capsule RxNorm: 587049 Capsule(s ) TAKE 1 CAPSULE BY MOUTH TWICE WEEKLY 06/14/2016 09/10/2016 Inactive Generic For:*VERN FREEDMAN [id number] 02/03/2015 10:10:59 AM Synthroid 175 mcg tablet RxNorm: 960154 1 Tablet(s) PO Saturday t hrough Saturday QD 06/05/2016 01/15/2018 Inactive Synthroid 150 mcg tablet RxNorm: 994869 1 Tablet(s) PO Sat and Sun 11/09/2015 06/04/2016 Inactive Synthroid 175 mcg tablet RxNorm: 050778 1 Tablet(s) PO Saturday t hrough Saturday11/09/2015 06/04/2016 Inactive Synthroid 150 mcg tablet RxNorm: 623756 1 Tablet(s) PO Sat and Sun , Sat, Sun 11/09/2015 11/08/2015 Inactive Janumet XR 100 mg-1,000 mg tablet,extended release RxNorm: 1 934028 TAKE 1 TABLET DAILY 09/30/2015 09/24/2016 Inactive azithromycin 500 mg tablet RxNorm: 648243 1 Tablet(s) PO QD 016 07/25/2015 Inactive azithromycin 500 mg tablet RxNorm: 367871 1 Tablet(s) PO QD 016 08/01/2015 Inactive loratadine 10 mg tablet RxNorm: 338342 1 Tablet(s) PO BID 04/06/2015 06/14/2016 Inactive [AttnRPh: Saving apply/adjudicate RxGRP: SG20 RxBIN:[id number] RxPCN: ID#:[id number]] Synthroid 175 mcg tablet RxNorm: 990616 1 Tablet(s) PO M, W, F 10/201411/08/2015 Inactive Synthroid 150 mcg tablet RxNorm: 661030 1 Tablet(s) PO QD Tu, T h, Sat, Sun 03/28/2015 11/08/2015 Inactive propranolol 20 mg tablet RxNorm: 972034 1 Tablet(s) PO BID 02/09/20 15 06/13/2016 Inactive fluoxetine 40 mg capsule RxNorm: 172120 1 Capsule(s) PO QD 02/09/20 15 06/14/2016 Inactive Vitamin D2 50,000 unit capsule RxNorm: 688272 TAKE 1 CA PSULE BY MOUTH TWICE WEEKLY 02/03/2015 06/14/2016 Inactive Generic For:*VERN NAVARRETEOL [id number] 02/03/2015 10:10:59 AM Lipitor 80 mg tablet RxNorm: 908833 1 Tablet(s) PO QD 01/24/201507/26 Inactive [AttnRPh: Saving apply/adjudicate RxGRP: SG20 RxBIN:[id number] RxPCN: ID#:[id number]] Bactrim DS 800 mg-160 mg tablet RxNorm: 473964 1 Tablet(s) PO BID 0 01/12/2015 01/11/2015 Inactive Synthroid 150 mcg tablet RxNorm: 151053 1 Tablet(s) PO QD 01/12/2015 03/27/2015 Inactive Bactrim DS 800 mg-160 mg tablet RxNorm: 752408 1 Tablet(s) PO BID 0 01/12/2015 01/18/2015 Inactive fluoxetine 40 mg capsule RxNorm: 411953 1 Capsule(s) PO QD 01/12/20 15 02/07/2015 Inactive Synthroid 137 mcg tablet RxNorm: 153798 1 Tablet(s) PO QD 12/08/2014 01/11/2015 Inactive [AttnRPh: Saving apply/adjudicate RxGRP: SG20 RxBIN:[id number] RxPCN:HT ID#:[id number]] Medrol (Isaiah) 4 mg tablets in a dose pack RxNorm: 514212 6 Tablet(s) PO QD --then as directed 11/24/2014 11/29/2014 Inactive albuterol sulfate HFA 90 mcg/actuation aerosol inhaler RxNor m: 347556 2 Puff(s) INH Q4H as needed 10/27/2014 07/24/2017 Inactive phenazopyridine 100 mg tablet RxNorm: 9578770 1 Tablet(s) PO TID 11/07/2015 Inactive [AttnRPh: Saving apply/adjud icate RxGRP:SG20 RxBIN:[id number] RxPCN: ID#:[id number]] Macrobid 100 mg capsule RxNorm: 069298 1 Capsule(s) PO BID 10/28/19 15 11/02/2014 Inactive [SAVINGS FOR NON-COVERED RUBIO GS -- BIN:[id number], PCN: ASPROD1, Group: XXXXX, ID# [id number], Questions: . THIS IS NOT INSURANCE.] prednisone 20 mg tablet RxNorm: 907152 1 Tablet(s) PO BID 10/27/2014 10/31/2014 Inactive AttnRPh: Saving apply/adjudicate RxGRP:S G20 RxBIN:[id number] RxPCN: ID#:[id number]: Saving apply/adjudicate RxGRP:SG20 RxBIN:[id number] RxPCN: ID#:[id number] Macrobid 100 mg capsule RxNorm: 627852 1 Capsule(s) PO BID 09/24/19 15 09/29/2014 Inactive [SAVINGS FOR NON-COVERED RUBIO GS -- BIN:019325, PCN: ASPROD1, Group: XXXXX, ID# [id number], Questions: . THIS IS NOT INSURANCE.] phenazopyridine 100 mg tablet RxNorm: 2119869 1 Tablet(s) PO TID 09/24/2014 Inactive [SAVINGS FOR NON-COVERED RUBIO GS -- BIN:[id number], PCN: ASPROD1, Group: XXXXX, ID# [id number], Questions: . THIS IS NOT INSURANCE.] propranolol 60 mg tablet RxNorm: 211909 1 Tablet(s) PO QD 07/26/2014 02/07/2015 Inactive [SAVINGS FOR UNINSURED PATIENTS -- BIN:0 20925, PCN: ASPROD1, Group: [id number], ID# [id number], Process claim through [employer], for questions: . THIS IS NOT INSURANCE.] loratadine 10 mg tablet RxNorm: 348943 1 Tablet(s) PO BID 07/12/2014 07/11/2014 Inactive [AttnRPh: Saving apply/adjudicate RxGRP: [id number] RxBIN:[id number] RxPCN: ID#:[id number]] loratadine 10 mg tablet RxNorm: 161401 1 Tablet(s) PO BID 07/12/2014 10/06/2018 Inactive [SAVINGS FOR UNINSURED PATIENTS -- BIN:0 11522, PCN: ASPROD1, Group: [id number], ID# [id number], Process claim through [employer], for questions: . THIS IS NOT INSURANCE.] Vitamin D2 50,000 unit capsule RxNorm: 130741 1 Capsule (s) PO Take 1 capsule by mouth twice weekly 05/18/2014 02/02/2015 Inactive Pepcid 20 mg tablet RxNorm: 369976 TAKE 1 TABLET BY MOUTH TWICE DAILY. 05/18/2014 06/14/2016 Inactive Generic For:PEPCID 2 0MG 05/18/2014 11:28:51 AM Janumet XR 100 mg-1,000 mg tablet,extended release RxNorm: 1 015661 1 Tablet(s) PO QD 05/12/2014 08/09/2014 Inactive [SAVINGS FOR UNI NSURED PATIENTS -- BIN:[id number], PCN: ASPROD1, Group: [id number], ID# [id number], Process claim through [employer], for questions: . THIS IS NOT INSURANCE.] Voltaren 1 % topical gel RxNorm: 980644 TOP BID 04/21/2014 5 Inactive Apply to affected areas 2-3 times daily as needed. Trilipix 135 mg capsule,delayed release RxNorm: 604474 1 Tablet(s) PO QD 1 Capsule(s) PO QD 04/21/2014 09/17/2014 Inactive may do 90 day f ill if desired Synthroid 137 mcg tablet RxNorm: 542300 1 Tablet(s) PO QD 03/30/2014 09/25/2014 Inactive [AttnRPh: Saving apply/adjudicate RxGRP: SG20 RxBIN:[id number] RxPCN: ID#:[id number]] Cipro 250 mg tablet RxNorm: 127632 1 Tablet(s) PO BID 03/30/201403/24 Inactive [SAVINGS FOR UNINSURED PATIENTS -- BIN:[id number], PCN: ASPROD1, Group: [id number], ID# [id number], Process claim through MedImp[employer], for questions: . THIS IS NOT INSURANCE.] Janumet XR 100 mg-1,000 mg tablet,extended release RxNorm: 1 979207 2 Tablet(s) PO QD 01/06/2014 01/05/2014 Inactive [SAVINGS FOR UNI NSURED PATIENTS -- BIN:[id number], PCN: ASPROD1, Group: [id number], ID# [id number], Process claim through Med[employer], for questions: . THIS IS NOT INSURANCE.] Janumet XR 100 mg-1,000 mg tablet,extended release RxNorm: 1 539587 1 Tablet(s) PO QD 01/06/2014 04/05/2014 Inactive [SAVINGS FOR UNI NSURED PATIENTS -- BIN:[id number], PCN: ASPROD1, Group: [id number], ID# [id number], Process claim through [employer], for questions: . THIS IS NOT INSURANCE.] propranolol 60 mg tablet RxNorm: 799906 1 Tablet(s) PO QD 12/28/2013 07/26/2014 Inactive [AttnRPh: Saving apply/adjudicate RxGRP: SG20 RxBIN:[id number] RxPCN: ID#:[id number]] Synthroid 150 mcg tablet RxNorm: 790396 1 Tablet(s) PO QD brand onl y 12/28/2013 04/20/2014 Inactive [AttnRPh: Saving apply/adjud icate RxGRP:SG20 RxBIN:[id number] RxPCN: ID#:[id number]] Vitamin D2 50,000 unit capsule RxNorm: 690146 1 Capsule (s) PO Take 1 capsule by mouth twice weekly 12/02/2013 05/17/2014 Inactive Lipitor 80 mg tablet RxNorm: 220926 1 Tablet(s) PO QD 11/24/201305/25 Inactive [AttnRPh: Saving apply/adjudicate RxGRP: SG20 RxBIN:[id number] RxPCN: ID#:[id number]] loratadine 10 mg tablet RxNorm: 022035 1 Tablet(s) PO BID 11/17/2013 07/12/2014 Inactive fluoxetine 20 mg capsule RxNorm: 497940 1 Capsule(s) PO QAM TAKE ONE CAPSULE BY MOUTH ONCE DAILY IN THE MORNING. 11/04/2013 01/10/2015 Inactive Generic For:PROZAC 20MG Generic For:PROZAC 20MG 06/23/2013 11:55:55 AM [AttnRPh: Saving apply/adjudicate RxGRP:SG20 RxBIN:[id number] RxPCN: ID#:[id number]] Vytorin 10 mg-80 mg tablet RxNorm: 6510823 Tablet(s) PO TAKE ONE TABLET BY MOUTH ONCE DAILY IN THE EVENING. 09/30/2013 11/23/2013 Inactive Trilipix 135 mg capsule,delayed release RxNorm: 450109 1 Capsul e(s) PO QD 07/15/2013 04/21/2014 Inactive may do 90 day fill i f desired Voltaren 1 % topical gel RxNorm: 796014 TOP BID 07/15/2013 4 Inactive Apply to affected areas 2-3 times daily as needed. Wellbutrin XL 300 mg 24 hr tablet, extended release RxNorm: 059498 1 Tablet(s) PO QAM 06/29/2013 04/03/2017 Inactive fluoxetine 20 mg capsule RxNorm: 802742 1 Capsule(s) PO QAM TAKE ONE CAPSULE BY MOUTH ONCE DAILY IN THE MORNING. 06/29/2013 11/04/2013 Inactive Generic For:PROZAC 20MG Generic For:PROZAC 20MG 06/23/2013 11:55:55 AM fluoxetine 20 mg capsule RxNorm: 251385 Capsule(s) PO T BRIA ONE CAPSULE BY MOUTH ONCE DAILY IN THE MORNING. 06/23/2013 06/28/2013 Inactive Gener ic For:PROZAC 20MG Generic For:PROZAC 20MG 06/23/2013 11:55:55 AM Synthroid 150 mcg tablet RxNorm: 431409 1 Tablet(s) PO QD brand onl y 06/08/2013 12/04/2013 Inactive Vytorin 10 mg-80 mg tablet RxNorm: 1226345 1 Tablet(s) PO QD 201209/05/2013 Inactive TAKE 1 TABLET BY MOUTH DAILY propranolol 60 mg tablet RxNorm: 267502 1 Tablet(s) PO QD 06/08/2013 12/04/2013 Inactive Pepcid 20 mg tablet RxNorm: 883239 Tablet(s) PO TAKE 1 TABLET BY MOUTH TWICE DAILY. 06/04/2013 11/23/2013 Inactive fluoxetine 20 mg capsule RxNorm: 443690 1 Capsule(s) PO QAM 013 06/22/2013 Inactive Wellbutrin XL 300 mg 24 hr tablet, extended release RxNorm: 431131 1 Tablet(s) PO QAM 05/26/2013 06/28/2013 Inactive Wellbutrin XL 150 mg 24 hr tablet, extended release RxNorm: 885562 1 Tablet(s) PO QD 05/15/2013 05/25/2013 Inactive Wellbutrin XL 150 mg 24 hr tablet, extended release RxNorm: 153499 1 Tablet(s) PO QD 05/15/2013 05/14/2013 Inactive Kombiglyze XR 5 mg-500 mg tablet,extended release RxNorm: 10 24165 1 Tablet(s) PO QD 05/07/2013 05/15/2013 Inactive cefdinir 300 mg capsule RxNorm: 513219 2 Capsule(s) PO QD 04/23/2013 05/02/2013 Inactive AttnRPh: Saving apply/adjudicate RxGRP:S G20 RxBIN:[id number] RxPCN: ID#:[id number] Pepcid 20 mg tablet RxNorm: 730871 Tablet(s) PO TAKE 1 TABLET BY MOUTH TWICE DAILY. 04/17/2013 06/13/2016 Inactive Pepcid 20 mg tablet RxNorm: 531603 1 Tablet(s) PO BID 04/06/201305/24 Inactive Vytorin 10-80 10 mg-80 mg tablet RxNorm: 051040 1 Tablet(s) PO QD 0 02/19/2013 06/08/2013 Inactive TAKE 1 TABLET BY MOUTH DAILY loratadine 10 mg tablet RxNorm: 274921 1 Tablet(s) PO BID 01/23/2013 07/21/2013 Inactive Synthroid 150 mcg tablet RxNorm: 357425 1 Tablet(s) PO QD brand onl y 12/02/2012 06/08/2013 Inactive propranolol 60 mg tablet RxNorm: 832577 1 Tablet(s) PO QD 12/02/2012 06/08/2013 Inactive Trilipix 135 mg capsule,delayed release RxNorm: 995116 1 Capsul e(s) PO QD 12/02/2012 05/30/2013 Inactive october do 90 day fill i f desired Pepcid 20 mg tablet RxNorm: 019616 1 Tablet(s) PO BID 11/27/201203/24 Inactive Effexor XR 150 mg capsule,extended release RxNorm: 789651 1 Cap kimi(s) PO QD 11/24/2012 05/14/2013 Inactive Vytorin 10-80 10 mg-80 mg tablet RxNorm: 462913 1 Tablet(s) PO QD 0 11/24/2012 2013 Inactive TAKE 1 TABLET BY MOUTH DAILY Vytorin 10-80 10 mg-80 mg tablet RxNorm: 463395 1 Tablet(s) PO QD 0 11/21/2012 11/24/2012 Inactive TAKE 1 TABLET BY MOUTH DAILY Effexor XR 150 mg capsule,extended release RxNorm: 217431 1 Cap kimi(s) PO QD 11/21/2012 11/24/2012 Inactive loratadine 10 mg tablet RxNorm: 7403914 1 Tablet(s) PO BID 11/12/19 13 01/23/2013 Inactive Vytorin 10-80 10 mg-80 mg tablet RxNorm: 358234 Tablet( s) PO TAKE 1 TABLET BY MOUTH ONCE DAILY. 10/15/2012 11/21/2012 Inactive Vytorin 10-80 10 mg-80 mg tablet RxNorm: 731077 1 Tablet(s) PO QD 0 10/15/2012 11/20/2012 Inactive TAKE 1 TABLET BY MOUTH DAILY Effexor XR 150 mg capsule,extended release RxNorm: 133277 1 Cap kimi(s) PO QD 10/15/2012 11/20/2012 Inactive Effexor XR 150 mg capsule,extended release RxNorm: 644796 Capsule(s) PO TAKE 1 CAPSULE BY MOUTH ONCE DAILY 10/15/2012 11/21/2012 Inactive azithromycin 250 mg tablet RxNorm: 114392 2 Tablet(s) PO QD 013 09/10/2012 Inactive Culturelle 10 billion cell capsule RxNorm: 765782 1 Cap kimi(s) PO BID for diarrhea maintenance 09/03/2012 10/02/2012 Inactive Medrol (Isaiah) 4 mg tablets in a dose pack RxNorm: 633823 Tablet(s) PO as directed 09/03/2012 07/11/2011 Active as directed Culturelle 10 billion cell capsule RxNorm: 305766 1 Capsule(s) PO BID 07/23/2012 08/21/2012 Inactive Vitamin D2 50,000 unit capsule RxNorm: 134195 Capsule(s ) PO TAKE 1 CAPSULE EVERY DAY SATURDAY THRU Saturday07/09/2012 08/20/2013 Inactive Vitamin D2 50,000 unit capsule RxNorm: 8804345 Capsule(s ) PO TAKE 1 CAPSULE EVERY DAY SATURDAY THRU Saturday07/07/2012 07/08/2012 Inactive Vitamin D2 50,000 unit capsule RxNorm: 5823437 Capsule(s ) PO TAKE 1 CAPSULE EVERY DAY SATURDAY THRU Saturday07/07/2012 07/06/2012 Inactive Vitamin D2 50,000 unit capsule RxNorm: 4406965 Capsule(s ) PO TAKE 1 CAPSULE EVERY DAY SATURDAY THRU Saturday06/27/2012 07/06/2012 Inactive Synthroid 150 mcg tablet RxNorm: 145315 1 Tablet(s) PO QD brand onl y 06/09/2012 12/02/2012 Inactive metformin 1,000 mg tablet RxNorm: 617446 1 Tablet(s) PO BID rep laces 500mg dose 05/20/2012 11/10/2012 Inactive propranolol 60 mg tablet RxNorm: 369494 1 Tablet(s) PO QD 04/23/2012 12/02/2012 Inactive Effexor XR 150 mg capsule,extended release RxNorm: 779750 1 Cap kimi(s) PO QD 04/04/2012 09/30/2012 Inactive Zyrtec 10 mg tablet RxNorm: 8269026 1 Tablet(s) PO QD 04/04/201203/24 Inactive Trilipix 135 mg capsule,delayed release RxNorm: 341417 1 Capsul e(s) PO QD 03/19/2012 12/02/2012 Inactive may do 90 day fill i f desired Vytorin 10-80 10 mg-80 mg tablet RxNorm: 142457 1 Tablet(s) PO QD 0 01/31/2012 07/28/2012 Inactive TAKE 1 TABLET BY MOUTH DAILY Voltaren 1 % topical gel RxNorm: 285519 TOP BID 01/25/2012 4 Inactive Apply to affected areas 2-3 times daily as needed. Synthroid 150 mcg tablet RxNorm: 083785 1 Tablet(s) PO QD brand onl y 01/02/2012 06/09/2012 Inactive metformin ER 1,000 mg 24 hr Tab Ctrl Rel RxNorm: 570322 1 Table t(s) PO QD 01/02/2012 05/19/2012 Inactive metformin ER 500 mg 24 hr Tab RxNorm: 273517 Tablet(s) PO 12/21/2011 01/01/2012 Inactive TAKE 1 TABLET BY MOUTH ONCE DAILY. Voltaren 1 % Topical Gel RxNorm: 350833 TOP BID 11/28/2011 2 Inactive Apply to affected areas 2-3 times daily as needed. propranolol 60 mg tablet RxNorm: 490326 1 Tablet(s) PO QD 10/17/2011 04/23/2012 Inactive Effexor XR 150 mg capsule,extended release RxNorm: 449042 1 Cap kimi(s) PO QD 09/13/2011 04/04/2012 Inactive Medrol (Isaiah) 4 mg tablets in a dose pack RxNorm: 859792 Tablet(s) PO as directed 09/04/2011 07/11/2011 Active as directed doxycycline hyclate 100 mg Tab RxNorm: 7346005 1 Tablet(s) PO BID 0 09/04/2011 09/13/2011 Inactive doxycycline monohydrate 100 mg Tab RxNorm: 0869014 1 Tablet(s) P O BID 07/25/2011 08/03/2011 Inactive prednisone 10 mg Tab RxNorm: 757452 1 Tablet(s) PO TID 07/25/201112/2011 Inactive Synthroid 150 mcg Tab RxNorm: 814401 1 Tablet(s) PO QD brand only 0 07/12/2011 01/02/2012 Inactive Vytorin 10-80 10 mg-80 mg Tab RxNorm: 370418 1 Tablet(s) PO QD 05/2601/31/2012 Inactive TAKE 1 TABLET BY MOUTH DAILY Vitamin D2 50,000 unit capsule RxNorm: 7169362 1 Capsule(s) PO Q D M-F 05/15/2011 06/26/2012 Inactive TAKE 1 CAPSULE BY [facility] DAILY SATURDAY THROUGH FRIDAYS Synthroid 150 mcg Tab RxNorm: 461212 1 Tablet(s) PO QD brand only 1 07/09/2010 07/11/2011 Inactive doxycycline monohydrate 100 mg Tab RxNorm: 3063752 1 Tablet(s) P O BID 04/25/2011 05/04/2011 Inactive Trilipix 135 mg capsule,delayed release RxNorm: 233846 1 Capsul e(s) PO QD 04/23/2011 03/19/2012 Inactive cefdinir 300 mg Cap RxNorm: 086296 1 Capsule(s) PO BID 04/04/2011 Inactive propranolol 60 mg Tab RxNorm: 410169 1 Tablet(s) PO QD 03/26/2011 Inactive Ultram 50 mg Tab RxNorm: 374358 1-2 Tablet(s) PO QID 03/22/201103/21 Active prn pain metformin ER 500 mg 24 hr Tab RxNorm: 259174 1 Tablet(s) PO QD 06/201006/21/2011 Inactive Synthroid 150 mcg Tab RxNorm: 979507 1 Tablet(s) PO QD 02/22/201112/2010 Inactive Vytorin 10-80 10 mg-80 mg Tab RxNorm: 345056 1 Tablet(s) PO QD 01/2303/13/2011 Inactive TAKE 1 TABLET BY MOUTH DAILY Trilipix 135 mg Cap RxNorm: 981508 1 Capsule(s) PO QD 01/10/201103/26 Inactive Effexor XR 150 mg 24 hr Cap RxNorm: 030499 1 Capsule(s) PO QD 01/0908/06/2011 Inactive Vitamin D 50,000 unit Cap RxNorm: 5029357 Capsule(s) PO 12/20/2010 Inactive TAKE 1 CAPSULE BY MOUTH DAILY Fridays Septra DS 800 mg-160 mg Tab RxNorm: 915833 1 Tablet(s) PO BID 12/0712/16/2010 Inactive mupirocin 2 % Ointment RxNorm: 362923 1 Application TOP BID Apply to affected area twice daily 12/07/2010 12/13/2010 Inactive Trilipix 135 mg Cap RxNorm: 291427 1 Capsule(s) PO QD 10/16/201003/26 Inactive Synthroid 150 mcg Tab RxNorm: 913660 1 Tablet(s) PO QD 10/09/201006/2010 Inactive metformin ER 500 mg 24 hr Tab RxNorm: 272857 1 Tablet(s) PO QD 09/2202/22/2011 Inactive Nexium 40 mg Cap RxNorm: 588274 1 Capsule(s) PO QD 10/05/2010 019 Inactive Vytorin 10-80 10 mg-80 mg Tab RxNorm: 156797 1 Tablet(s) PO QD 09/201002/12/2011 Inactive propranolol 60 mg Tab RxNorm: 497914 1 Tablet(s) PO QD 09/18/201008/2010 Inactive Synthroid 125 mcg Tab RxNorm: 054479 1 Tablet(s) PO QD 08/07/2010 Inactive Synthroid 125 mcg Tab RxNorm: 700497 1 Tablet(s) PO QD 08/07/2010 Inactive Voltaren 1 % Topical Gel RxNorm: 059079 TOP BID Apply t o affected areas 2-3 times daily as needed. 08/01/2010 11/28/2011 Inactive Voltaren 1 % Topical Gel RxNorm: 202779 TOP BID Apply t o affected areas 2-3 times daily as needed. 07/04/2010 07/31/2010 Inactive Advair Diskus 250 mcg-50 mcg/dose for Inhalation RxNorm: 135 9859 1 Puff(s) INH Q12H 07/04/2010 07/11/2011 Inactive Effexor XR 150 mg 24 hr Cap RxNorm: 602280 1 Capsule(s) PO QD 06/0801/03/2011 Inactive Synthroid 100 mcg Tab RxNorm: 206449 1 Tablet(s) PO QD 06/06/2010 Inactive Vitamin D 50,000 unit Cap RxNorm: 3769040 1 Capsule(s) PO QD M-F 05/15/2011 Inactive Synthroid 150 mcg Tab RxNorm: 010203 1 Tablet(s) PO 05/25/20102010 Inactive Vytorin 10-80 10 mg-80 mg Tab RxNorm: 334550 1 Tablet(s) PO QD 04/2509/25/2010 Inactive Trilipix 135 mg Cap RxNorm: 693942 1 Capsule(s) PO QD 04/17/201009/23 Inactive propranolol 60 mg Tab RxNorm: 152823 1 Tablet(s) PO QD 01/09/2010 Inactive Advair Diskus 250 mcg-50 mcg/dose for Inhalation RxNorm: 135 9859 1 Puff(s) INH Q12H 12/26/2009 07/04/2010 Inactive Advair Diskus 250 mcg-50 mcg/Dose for Inhalation RxNorm: 135 9859 1 Puff(s) INH Q12H 11/26/2009 12/25/2009 Inactive Synthroid 200 mcg Tab RxNorm: 982669 1 Tablet(s) PO QD 11/24/2009 Inactive Effexor XR 150 mg 24 hr Cap RxNorm: 827744 1 Capsule(s) PO QD 10/2705/24/2010 Inactive Lisinopril 10 mg Tab RxNorm: 765232 1 Tablet(s) PO QD 10/17/200909/23 Inactive Propranolol 60 mg Tab RxNorm: 044590 1 Tablet(s) PO QD 10/17/2009 Inactive Septra DS 160 mg-800 mg Tab RxNorm: 827433 1 Tablet(s) PO BID 10/0410/08/2009 Inactive Mupirocin 2 % Ointment RxNorm: 694338 TOP Q6-8H 10/04/2009 10/10/2009 Inactive Voltaren 1 % Topical Gel RxNorm: 769937 TOP BID Apply t o affected areas 2-3 times daily as needed. 09/21/2009 03/19/2010 Inactive Trilipix 135 mg Cap RxNorm: 719733 1 Capsule(s) PO QD 09/20/200902/23 Inactive Nexium 40 mg Cap RxNorm: 506301 1 Capsule(s) PO QD 09/19/2009 010 Inactive Tylenol Arthritis 650 mg Tab RxNorm: 9201454 2 Tablet(s) PO BID 09/21 Active Vitamin D3 5,000 unit tablet RxNorm: 650298 1 Tablet(s) PO QD 019 Active Synthroid 150 mcg tablet RxNorm: 595609 1 Tablet(s) PO QD 01/12/2015 01/11/2015 Inactive Synthroid 150 mcg tablet RxNorm: 521654 1 Tablet(s) PO Saturday and Saturday01/16/2018 01/15/2018 Inactive Vitamin D 2,000 unit Cap RxNorm: 1 Capsule(s) PO QD 01/30/201002/2010 Inactive Flexeril 5 mg tablet RxNorm: 348407 /2 to 1 Tablet(s) PO TID as needed for muscle spasm 06/10/2017 06/09/2017 Inactive Medrol (Isaiah) 4 mg Tabs in a Dose Pack RxNorm: 009062 Tablet(s) PO 0 09/04/2011 07/11/2011 Inactive as directed fenofibrate micronized 134 mg capsule RxNorm: 036552 1 Capsule( s) PO QD 06/03/2017 06/02/2017 Inactive Vitamin D2 50,000 unit capsule RxNorm: 142071 Capsule(s ) PO Take 1 capsule by mouth twice weekly 12/02/2013 12/01/2013 Inactive prednisone 20 mg tablet RxNorm: 054247 1 Tablet(s) PO BID 03/30/2014 03/29/2014 Inactive AttnRPh: Saving apply/adjudicate RxGRP:S G20 RxBIN:[id number] RxPCN:HT ID#:[id number]: Saving apply/adjudicate RxGRP:SG20 RxBIN:[id number] RxPCN:HT ID#:[id number] Soma 350 mg tablet RxNorm: 734697 1 Tablet(s) PO TID prn spasm 01/2310/08/2010 Inactive Lancets,Ultra Thin RxNorm: Miscellaneous Use to test blood sugar daily and as needed (Dx: E11.65) 02/28/2018 02/27/2018 Inactive pantoprazole 40 mg tablet,delayed release RxNorm: 066459 1 Tabl et(s) PO QD 08/21/2017 08/20/2017 Inactive Janumet XR 100 mg-1,000 mg tablet,extended release RxNorm: 1 015962 2 Tablet(s) PO QD 01/06/2014 01/05/2014 Inactive Contour Meter RxNorm: miscellaneous 02/27/2018 02/26/2018 Inactive Synthroid 200 mcg Tab RxNorm: 759682 1 Tablet(s) PO QD 11/24/200907/2009 Inactive Kombiglyze XR 5 mg-500 mg tablet,extended release RxNorm: 10 69286 1 Tablet(s) PO QD 05/07/2013 05/06/2013 Inactive Zithromax Z-Isaiah 250 mg tablet RxNorm: 064086 Tablet(s) PO as di rected 05/14/2013 05/13/2013 Inactive AttnRPh: Saving appl y/adjudicate RxGRP:SG20 RxBIN:[id number] RxPCN: ID#:[id number] Fish Oil 1,000 mg capsule RxNorm: 3 Capsule(s) PO QD 04/04/2017 Inactive Lasix Oral RxNorm: Oral 03/30/2014 03/29/2014 Inactive loratadine 10 mg tablet RxNorm: 111273 1 Tablet(s) PO QD 08/20/2017 0 08/19/2017 Inactive Vitamin D 5,000 unit Tab RxNorm: 1 Tablet(s) PO twice a week 1 08/07/2009 06/05/2010 Inactive permethrin 5 % Topical Cream RxNorm: 401323 TOP Use as directed 02/03/2013 Inactive Gabapentin 100 mg Tab RxNorm: 250534 1 Tablet(s) PO BID 04/12/2010 Inactive Voltaren 1 % topical gel RxNorm: 775568 TOP as needed 06/23/201805/26 Inactive Gabapentin 300 mg Cap RxNorm: 173075 1 Capsule(s) PO BID 07/12/2011 0 07/11/2011 Inactive Contour Test Strips RxNorm: Miscellaneous Test blood sug ar daily (Dx: E11.65) 02/28/2018 02/27/2018 Inactive Promethazine 25 mg Tab RxNorm: 476343 1 Tablet(s) PO Q6 -8H As needed for nausea and vomiting. 10/09/2010 10/08/2010 Inactive propranolol 20 mg tablet RxNorm: 614104 1 Tablet(s) PO BID 03/17/20 18 03/16/2018 Inactive Vitamin D 50,000 unit Cap RxNorm: 1949945 Capsule(s) PO 2 weekly 06/05/2010 Inactive Synthroid 175 mcg Tab RxNorm: 493142 1 Tablet(s) PO QD 07/12/2011 Inactive triamcinolone acetonide 0.1 % Ointment RxNorm: 4564136 T OP TID apply three times a day (sparingly) as needed for itching 04/04/2017 04/03/2017 Inactive Ultram 50 mg Tab RxNorm: 392200 1-2 Tablet(s) PO QID prn pain 03/2203/22/2011 Inactive Topamax 100 mg Tab RxNorm: 891908 1 Tablet(s) PO BID 10/04/200910/03 Inactive Vitamin D3 1000 units Capsule RxNorm: 3 Capsule(s) PO QD 0 06/05/2010 Inactive Singulair 10 mg tablet RxNorm: 485041 1 Tablet(s) PO QD 06/23/2018 Inactive Medication [...] Code Item Item Code Result Date [facility] SARS-CoV2 5289198 SARS-CoV2 PCR Detected 07/08/2021 Unkno wn GFR CALC 4936415 GFR Non Afr Amr >60 mL/min 01/26/2019 Un known GFR CALC 8294252 GFR Afr Amr >60 mL/min 01/26/2019 Unknow n COMPLETE BLOOD COUNT 8239888 WBC 7.0 10e9/L 01/27/20 19 Unknown COMPLETE BLOOD COUNT 6139648 RBC 4.52 10e12/L 2018 Unknown COMPLETE BLOOD COUNT 9863682 HEMOGLOBIN 14.0 g/dL 01/27/20 19 Unknown COMPLETE BLOOD COUNT 4065436 HEMATOCRIT 42.6 % 01/27/20 19 Unknown COMPLETE BLOOD COUNT 0266942 MCV 94.2 fL 9 Unknown COMPLETE BLOOD COUNT 5338896 MCH 31.0 pg 9 Unknown COMPLETE BLOOD COUNT 0318418 MCHC 32.9 g/dL 9 Unknown COMPLETE BLOOD COUNT 8736242 PLATELET COUNT 272 10e9/L 10/2018 Unknown COMPLETE BLOOD COUNT 8823346 Mean Plt Volume 10.4 fL 10/2018 Unknown COMPLETE BLOOD COUNT 5769843 Neut Auto 53.9 % 9 Unknown COMPLETE BLOOD COUNT 6376222 Lymph Auto 33.8 % 01/27/20 19 Unknown COMPLETE BLOOD COUNT 3162106 Emanuel Auto 9.1 % 9 Unknown COMPLETE BLOOD COUNT 6283328 RDW 13.2 % 9 Unknown COMPLETE BLOOD COUNT 3654526 Eos Auto 2.3 % 9 Unknown COMPLETE BLOOD COUNT 8729054 Baso Auto 0.9 % 9 Unknown COMPLETE BLOOD COUNT 9870751 Neutrophil Abs 3.77 10e9/L Unknown COMPLETE BLOOD COUNT 5368227 Lymphocyte Abs 2.37 10e9/L Unknown COMPLETE BLOOD COUNT 8612953 Monocyte Abs 0.64 10e9/L 10/2018 Unknown COMPLETE BLOOD COUNT 6602527 Eosinophil Abs 0.16 10e9/L Unknown COMPLETE BLOOD COUNT 3154358 RDW-SD 44.2 fL 9 Unknown COMPLETE BLOOD COUNT 6493424 Basophil Abs 0.06 10e9/L 10/2018 Unknown COMPREHENSIVE METABOLIC 15512 AST 15 U/L 2018 Unknown COMPREHENSIVE METABOLIC 93485 ALT 18 U/L 2018 Unknown COMPREHENSIVE METABOLIC 81123 BUN 10 mg/dL 2018 Unknown COMPREHENSIVE METABOLIC 58666 ALBUMIN 4.1 g/dL 2018 Unknown COMPREHENSIVE METABOLIC 62777 CHLORIDE 100 mmol/L 01/26 Unknown COMPREHENSIVE METABOLIC 93700 Bili Total 0.4 mg/dL 01/26 Unknown COMPREHENSIVE METABOLIC 23794 ALK PHOS 57 U/L 2018 Unknown COMPREHENSIVE METABOLIC 92982 SODIUM 136 mmol/L 01/26 Unknown COMPREHENSIVE METABOLIC 54781 CREATININE 0.71 mg/dL 10/2018 Unknown COMPREHENSIVE METABOLIC 49439 CALCIUM 9.3 mg/dL 2018 Unknown COMPREHENSIVE METABOLIC 36502 POTASSIUM 4.4 mmol/L 01/26 Unknown COMPREHENSIVE METABOLIC 47528 Total Protein 6.7 g/dL Unknown COMPREHENSIVE METABOLIC 75021 Glucose 88 mg/dL 2018 Unknown COMPREHENSIVE METABOLIC 23925 Bicarbonate 27 mmol/L 10/2018 Unknown COMPREHENSIVE METABOLIC 25753 AGAP 9 mmol/L 2018 Unknown Procedures Procedure Codes Date RML URINE CULTURE/ COLONY COUNT CPT-4: 47894 06/29/19 23 THER/PROPH/DIAG INJ SC/IM CPT-4: 80145 04/18/2022 KETOROLAC TROMETHAMINE INJ CPT-4: J1885 04/18/2022 FLU 64 + VACC AIIV4 NO PRSRV 0.5ML IM CPT-4: 49805 ADMIN INFLUENZA VIRUS VAC CPT-4: G0008 04/05/2022 PPPS, subseq visit CPT-4: G0439 02/06/2022 DEXAMETHASONE SODIUM PHOS CPT-4: J1100 11/09/2021 THER/PROPH/DIAG INJ SC/IM CPT-4: 00755 11/09/2021 TRIAMCINOLONE ACET INJ NOS CPT-4: J3301 11/09/2021 CEFTRIAXONE SODIUM INJECTION CPT-4: J0696 10/30/2021 THER/PROPH/DIAG INJ SC/IM CPT-4: 44011 10/30/2021 INFLUENZA ASSAY W/OPTIC CPT-4: 54467 10/30/2021 THER/PROPH/DIAG INJ SC/IM CPT-4: 12600 09/05/2021 TRIAMCINOLONE ACET INJ NOS CPT-4: J3301 09/05/2021 INFLUENZA ASSAY W/OPTIC CPT-4: 55151 07/04/2021 SARS-CoV2 CPT-4: 1731348 07/04/2021 FLU VACC PRSV FREE INC ANTIG 65 AND OLDER CPT-4: 20006 03/29/2021 FLU VACC PRSV FREE INC ANTIG 65 AND OLDER CPT-4: 36302 03/29/2021 ADMIN INFLUENZA VIRUS VAC CPT-4: G0008 03/29/2021 DRAINAGE OF SKIN ABSCESS CPT-4: 65189 02/08/2021 PPPS, subseq visit CPT-4: G0439 01/03/2021 OCCULT BLOOD FECES CPT-4: 85197 07/13/2020 RML URINE CULTURE/ COLONY COUNT CPT-4: 72143 05/17/20 20 URINALYSIS NONAUTO W/O SCOPE CPT-4: 47614 05/17/2020 CEFTRIAXONE SODIUM INJECTION CPT-4: J0696 03/07/2020 THER/PROPH/DIAG INJ SC/IM CPT-4: 68836 03/07/2020 THER/PROPH/DIAG INJ SC/IM CPT-4: 08502 03/07/2020 METHYLPREDNISOLONE INJECTION CPT-4: J2930 03/07/2020 PPPS, subseq visit CPT-4: G0439 12/21/2019 RML URINE CULTURE/ COLONY COUNT CPT-4: 19797 09/11/19 20 CEFTRIAXONE SODIUM INJECTION CPT-4: J0696 09/08/2019 THER/PROPH/DIAG INJ SC/IM CPT-4: 19020 09/08/2019 THER/PROPH/DIAG INJ SC/IM CPT-4: 65047 09/07/2019 CEFTRIAXONE SODIUM INJECTION CPT-4: J0696 09/07/2019 THER/PROPH/DIAG INJ SC/IM CPT-4: 86890 09/07/2019 URINALYSIS NONAUTO W/O SCOPE CPT-4: 36492 09/02/2019 RML URINE CULTURE/ COLONY COUNT CPT-4: 32948 09/02/19 20 FLU VACC PRSV FREE INC ANTIG 65 AND OLDER CPT-4: 61790 04/15/2019 URINALYSIS NONAUTO W/O SCOPE CPT-4: 81132 04/15/2019 RML URINE CULTURE/ COLONY COUNT CPT-4: 38307 04/15/20 19 ADMIN INFLUENZA VIRUS VAC CPT-4: G0008 04/15/2019 FLU VACC PRSV FREE INC ANTIG 65 AND OLDER CPT-4: 56976 04/15/2019 THER/PROPH/DIAG INJ SC/IM CPT-4: 33429 04/07/2019 TRIAMCINOLONE ACET INJ NOS CPT-4: J3301 04/07/2019 DEXAMETHASONE SODIUM PHOS CPT-4: J1100 04/07/2019 URINALYSIS NONAUTO W/O SCOPE CPT-4: 85573 03/18/2019 RML URINE CULTURE/ COLONY COUNT CPT-4: 06318 03/18/20 19 ROUTINE VENIPUNCTURE CPT-4: 60242 01/26/2019 RML COMPREHEN METABOLIC PANEL CPT-4: 79045 01/26/2019 RML COMPLETE CBC W/AUTO DIFF WBC CPT-4: 27308 019 RML URINE CULTURE/ COLONY COUNT CPT-4: 53746 01/27/20 19 URINALYSIS NONAUTO W/O SCOPE CPT-4: 26279 01/26/2019 THER/PROPH/DIAG INJ SC/IM CPT-4: 81388 01/08/2019 TRIAMCINOLONE ACET INJ NOS CPT-4: J3301 01/08/2019 THER/PROPH/DIAG INJ SC/IM CPT-4: 92333 01/06/2019 METHYLPREDNISOLONE INJECTION CPT-4: J2930 01/06/2019 AIRWAY INHALATION TREATMENT CPT-4: 05671 01/06/2019 RML URINE CULTURE/ COLONY COUNT CPT-4: 78607 01/07/20 19 PPPS, subseq visit CPT-4: G0439 12/11/2018 URINALYSIS NONAUTO W/O SCOPE CPT-4: 60847 12/11/2018 RML URINE CULTURE/ COLONY COUNT CPT-4: 91013 12/12/19 19 CULTURE OTHR SPECIMN AEROBIC CPT-4: 66270 12/11/2018 OCCULT BLOOD FECES CPT-4: 06273 12/11/2018 THER/PROPH/DIAG INJ SC/IM CPT-4: 70146 10/07/2018 TRIAMCINOLONE ACET INJ NOS CPT-4: J3301 10/07/2018 DEXAMETHASONE SODIUM PHOS CPT-4: J1100 10/07/2018 THER/PROPH/DIAG INJ SC/IM CPT-4: 42029 10/16/2017 TRIAMCINOLONE ACET INJ NOS CPT-4: J3301 10/16/2017 THER/PROPH/DIAG INJ SC/IM CPT-4: 14790 10/16/2017 KETOROLAC TROMETHAMINE INJ CPT-4: J1885 10/16/2017 INFLUENZA ASSAY W/OPTIC CPT-4: 65884 07/25/2017 FLU VACC PRSV FREE INC ANTIG 65 AND OLDER CPT-4: 95034 04/04/2017 PNEUMOCOCCAL VACC 23 DANAY IM CPT-4: 98577 04/04/2017 PPPS, subseq visit CPT-4: G0439 04/04/2017 ADMIN INFLUENZA VIRUS VAC CPT-4: G0008 04/04/2017 ADMIN PNEUMOCOCCAL VACCINE CPT-4: G0009 04/04/2017 URINALYSIS NONAUTO W/O SCOPE CPT-4: 03825 06/05/2016 FLU VACC PRSV FREE INC ANTIG 65 AND OLDER CPT-4: 65882 05/01/2016 ADMIN INFLUENZA VIRUS VAC CPT-4: G0008 05/01/2016 URINALYSIS NONAUTO W/O SCOPE CPT-4: 32819 11/08/2015 URINALYSIS NONAUTO W/O SCOPE CPT-4: 78401 03/28/2015 ADMIN INFLUENZA VIRUS VAC CPT-4: G0008 03/28/2015 FLU VACC PRSV FREE INC ANTIG 65 AND OLDER CPT-4: 77851 03/28/2015 PRESCRIP TRANSMIT VIA ERX SY CPT-4: G8553 03/28/2015 PNEUMOCOCCAL VACC 12 DANAY IM CPT-4: 82428 02/08/2015 ADMIN PNEUMOCOCCAL VACCINE CPT-4: G0009 02/08/2015 PRESCRIP TRANSMIT VIA ERX SY CPT-4: G8553 02/08/2015 RML URINE CULTURE/ COLONY COUNT CPT-4: 73404 01/12/20 15 URINALYSIS NONAUTO W/O SCOPE CPT-4: 83653 01/11/2015 PRESCRIP TRANSMIT VIA ERX SY CPT-4: G8553 01/11/2015 PRESCRIP TRANSMIT VIA ERX SY CPT-4: G8553 11/24/2014 URINALYSIS NONAUTO W/O SCOPE CPT-4: 26268 10/27/2014 RML URINE CULTURE/ COLONY COUNT CPT-4: 32972 10/28/19 15 PRESCRIP TRANSMIT VIA ERX SY CPT-4: G8553 10/27/2014 CEFTRIAXONE SODIUM INJECTION CPT-4: J0696 09/23/2014 THER/PROPH/DIAG INJ SC/IM CPT-4: 85057 09/23/2014 URINALYSIS NONAUTO W/O SCOPE CPT-4: 54139 09/23/2014 RML URINE CULTURE/ COLONY COUNT CPT-4: 85331 09/24/19 15 PRESCRIP TRANSMIT VIA ERX SY CPT-4: G8553 09/23/2014 URINALYSIS NONAUTO W/O SCOPE CPT-4: 94091 03/30/2014 RML URINE CULTURE/ COLONY COUNT CPT-4: 41016 03/30/20 14 PRESCRIP TRANSMIT VIA ERX SY CPT-4: G8553 03/30/2014 PRESCRIP TRANSMIT VIA ERX SY CPT-4: G8553 11/24/2013 PRESCRIP TRANSMIT VIA ERX SY CPT-4: G8553 06/29/2013 PRESCRIP TRANSMIT VIA ERX SY CPT-4: G8553 05/26/2013 PRESCRIP TRANSMIT VIA ERX SY CPT-4: G8553 04/23/2013 THER/PROPH/DIAG INJ SC/IM CPT-4: 93944 03/05/2013 KETOROLAC TROMETHAMINE INJ CPT-4: J1885 03/05/2013 PRESCRIP TRANSMIT VIA ERX SY CPT-4: G8553 11/27/2012 PRESCRIP TRANSMIT VIA ERX SY CPT-4: G8553 11/11/2012 PRESCRIP TRANSMIT VIA ERX SY CPT-4: G8553 09/03/2012 PRESCRIP TRANSMIT VIA ERX SY CPT-4: G8553 07/23/2012 PRESCRIP TRANSMIT VIA ERX SY CPT-4: G8553 05/20/2012 PRESCRIP TRANSMIT VIA ERX SY CPT-4: G8553 04/04/2012 DESTRUCT PREMALG LESION (Cryosurgery) CPT-4: 64788 PRESCRIP TRANSMIT VIA ERX SY CPT-4: G8553 01/02/2012 PRESCRIP TRANSMIT VIA ERX SY CPT-4: G8553 09/04/2011 URINALYSIS NONAUTO W/O SCOPE CPT-4: 86191 07/31/2011 PRESCRIP TRANSMIT VIA ERX SY CPT-4: G8553 07/12/2011 PRESCRIP TRANSMIT VIA ERX SY CPT-4: G8553 05/09/2011 THER/PROPH/DIAG INJ SC/IM CPT-4: 97199 05/02/2011 KETOROLAC TROMETHAMINE INJ CPT-4: J1885 05/02/2011 PRESCRIP TRANSMIT VIA ERX SY CPT-4: G8553 04/25/2011 CUR TOBACCO NON-USER CPT-4: G8457 04/04/2011 PRESCRIP TRANSMIT VIA ERX SY CPT-4: G8553 04/04/2011 DRAIN/INJECT JOINT/BURSA CPT-4: 53539 03/01/2011 METHYLPREDNISOLONE 40 MG INJ CPT-4: J1030 03/01/2011 TRIAMCINOLONE ACET INJ NOS CPT-4: J3301 03/01/2011 DRAIN/INJECT JOINT/BURSA CPT-4: 34149 01/04/2011 METHYLPREDNISOLONE 40 MG INJ CPT-4: J1030 01/04/2011 TRIAMCINOLONE ACET INJ NOS CPT-4: J3301 01/04/2011 PRESCRIP TRANSMIT VIA ERX SY CPT-4: G8553 12/07/2010 PRESCRIP TRANSMIT VIA ERX SY CPT-4: G8553 10/09/2010 PRESCRIP TRANSMIT VIA ERX SY CPT-4: G8553 06/06/2010 DRAIN/INJECT JOINT/BURSA CPT-4: 79937 04/12/2010 TRIAMCINOLONE ACET INJ NOS CPT-4: J3301 04/12/2010 METHYLPREDNISOLONE 80 MG INJ CPT-4: J1040 04/12/2010 PRESCRIP TRANSMIT VIA ERX SY CPT-4: G8553 03/20/2010 THER/PROPH/DIAG INJ SC/IM CPT-4: 68840 01/30/2010 KETOROLAC TROMETHAMINE INJ CPT-4: J1885 01/30/2010 PRESCRIP TRANSMIT VIA ERX SY CPT-4: G8553 01/30/2010 DRAIN/INJECT JOINT/BURSA CPT-4: 21019 10/26/2009 TRIAMCINOLONE ACET INJ NOS CPT-4: J3301 10/26/2009 METHYLPREDNISOLONE 80 MG INJ CPT-4: J1040 10/26/2009 DRAINAGE OF SKIN ABSCESS CPT-4: 85259 10/04/2009 Vital Signs Date Vital 08/07/2022 Blood Pressure 1: 126/74 Code: 8480-6 Heart Rate 1: 73 bpm Respiratory Rate: 20 bpm SpO2: 97% Temperature: 36.2 (C) / 97.1 (F) We ight: 222 lbs Code: 51469-3 06/29/2022 Blood Pressure 1: 132/73 Code: 8480-6 BMI: 36.7 Code: 77627-3 Heart Rate 1: 74 bpm Height: 5'6" Code: 8302-2 SpO2: 96% Temperature: 3 6.4 (C) / 97.6 (F) Weight: 226 lbs Code: 88194-3 05/28/2022 Blood Pressure 1: 129/78 Code: 8480-6 BMI: 37.7 Code: 65458-3 Heart Rate 1: 72 bpm Height: 5'6" Code: 8302-2 SpO2: 95% Temperature: 3 6.2 (C) / 97.1 (F) Weight: 232 lbs Code: 33132-0 05/10/2022 Blood Pressure 1: 133/75 Code: 8480-6 BMI: 38.3 Code: 16822-8 Heart Rate 1: 68 bpm Height: 5'6" Code: 8302-2 SpO2: 98% Temperature: 3 6.2 (C) / 97.1 (F) Weight: 236 lbs Code: 25548-7 04/18/2022 Blood Pressure 1: 118/70 Code: 8480-6 Heart Rate 1: 86 bpm Respiratory Rate: 20 bpm SpO2: 96% Temperature: 36.6 (C) / 97.8 (F) We ight: 238 lbs Code: 82154-4 02/15/2022 Blood Pressure 1: 120/82 Code: 8480-6 Heart Rate 1: 88 bpm Respiratory Rate: 20 bpm SpO2: 98% Temperature: 36.1 (C) / 97.0 (F) We ight: 237 lbs Code: 07472-0 02/06/2022 Blood Pressure 1: 124/80 Code: 8480-6 BMI: 39.4 Code: 41658-9 Heart Rate 1: 76 bpm Height: 5'6" Code: 8302-2 Respiratory Rate: 20 bpm SpO2: 98% Temperature: 36.6 (C) / 97.9 (F) Weight: 242 lbs Code: 22844-9 02/01/2022 Blood Pressure 1: 144/100 Code: 8480-6 Heart Rat e 1: 108 bpm Respiratory Rate: 22 bpm SpO2: 96% Temperature: 36.4 (C) / 97.5 (F) 11/29/2021 Blood Pressure 1: 128/80 Code: 8480-6 Heart Rate 1: 56 bpm Respiratory Rate: 20 bpm SpO2: 97% Temperature: 36.7 (C) / 98.1 (F) We ight: 242 lbs Code: 40333-5 11/22/2021 Blood Pressure 1: 118/80 Code: 8480-6 Heart Rate 1: 84 bpm Respiratory Rate: 20 bpm SpO2: 99% Temperature: 36.3 (C) / 97.4 (F) 11/21/2021 Blood Pressure 1: 132/80 Code: 8480-6 Heart Rate 1: 98 bpm Respiratory Rate: 20 bpm SpO2: 99% Weight: 238 lbs Code: 99810 -7 11/09/2021 Blood Pressure 1: 136/86 Code: 8480-6 Heart Rate 1: 68 bpm Respiratory Rate: 20 bpm SpO2: 95% Temperature: 36.4 (C) / 97.5 (F) We ight: 244 lbs Code: 59952-2 10/31/2021 Blood Pressure 1: 128/80 Code: 8480-6 Heart Rate 1: 80 bpm Respiratory Rate: 28 bpm SpO2: 93% Temperature: 38.0 (C) / 100. 4 (F) 10/30/2021 Blood Pressure 1: 136/82 Code: 8480-6 Heart Rate 1: 120 bpm Respiratory Rate: 24 bpm SpO2: 95% Temperature: 38.0 (C) / 100. 4 (F) 09/05/2021 Blood Pressure 1: 118/84 Code: 8480-6 BMI: 38.5 Code: 83407-5 Heart Rate 1: 72 bpm Height: 5'7" Code: 8302-2 Respiratory Rate: 20 bpm SpO2: 95% Temperature: 36.3 (C) / 97.4 (F) Weight: 246 lbs Code: 47524-1 08/24/2021 Blood Pressure 1: 132/84 Code: 8480-6 Heart Rate 1: 76 bpm Respiratory Rate: 19 bpm SpO2: 98% Temperature: 36.7 (C) / 98.1 (F) We ight: Code: 33518-8 03/01/2021 Blood Pressure 1: 90/52 Code: 8480-6 Heart Rate 1: 66 bpm Respiratory Rate: 22 bpm SpO2: 97% 02/08/2021 Blood Pressure 1: 132/75 Code: 8480-6 Heart Rate 1: 74 bpm Respiratory Rate: 18 bpm SpO2: 98% Temperature: 36.3 (C) / 97.3 (F) We ight: 247 lbs Code: 54045-9 01/19/2021 Blood Pressure 1: 126/76 Code: 8480-6 Heart Rate 1: 76 bpm Respiratory Rate: 20 bpm SpO2: 98% Temperature: 37.1 (C) / 98.8 (F) We ight: 244 lbs Code: 22032-6 01/03/2021 Blood Pressure 1: 124/64 Code: 8480-6 BMI: 38.5 Code: 56973-8 Heart Rate 1: 76 bpm Height: 5'7" Code: 8302-2 Respiratory Rate: 20 bpm SpO2: 96% Temperature: 36.4 (C) / 97.6 (F) Weight: 246 lbs Code: 68813-9 11/29/2020 Blood Pressure 1: 119/68 Code: 8480-6 Heart Rate 1: 73 bpm Respiratory Rate: 20 bpm SpO2: 95% Temperature: 36.1 (C) / 96.9 (F) We ight: 245 lbs Code: 94446-0 09/29/2020 Blood Pressure 1: 136/79 Code: 8480-6 Heart Rate 1: 67 bpm Respiratory Rate: 15 bpm SpO2: 98% Temperature: 36.2 (C) / 97.1 (F) We ight: 237 lbs Code: 58143-5 09/19/2020 Blood Pressure 1: 135/82 Code: 8480-6 Heart Rate 1: 76 bpm Respiratory Rate: 17 bpm SpO2: 96% Temperature: 36.6 (C) / 97.8 (F) We ight: 238 lbs Code: 61380-1 08/10/2020 Blood Pressure 1: 126/82 Code: 8480-6 Heart Rate 1: 60 bpm Respiratory Rate: 20 bpm SpO2: 96% Temperature: 36.3 (C) / 97.3 (F) We ight: 238 lbs Code: 74008-6 08/01/2020 Temperature: 36.6 (C) / 97.8 (F) 07/13/2020 Blood Pressure 1: 132/80 Code: 8480-6 Heart Rate 1: 76 bpm Respiratory Rate: 20 bpm SpO2: 97% Temperature: 36.2 (C) / 97.2 (F) We ight: 228 lbs Code: 78235-8 07/05/2020 Temperature: 35.9 (C) / 96.7 (F) 06/22/2020 Blood Pressure 1: 134/82 Code: 8480-6 Heart Rate 1: 60 bpm Respiratory Rate: 20 bpm SpO2: 96% Temperature: 36.4 (C) / 97.6 (F) We ight: 235 lbs Code: 82281-6 05/17/2020 Blood Pressure 1: 141/72 Code: 8480-6 Heart Rate 1: 78 bpm Respiratory Rate: 16 bpm SpO2: 98% Temperature: 36.3 (C) / 97.3 (F) We ight: 232 lbs Code: 47672-5 03/14/2020 Blood Pressure 1: 126/92 Code: 8480-6 Heart Rate 1: 72 bpm Respiratory Rate: 22 bpm SpO2: 96% Temperature: 36.3 (C) / 97.4 (F) We ight: 225 lbs Code: 05286-7 03/07/2020 Blood Pressure 1: 124/86 Code: 8480-6 Heart Rate 1: 72 bpm Respiratory Rate: 24 bpm SpO2: 93% Temperature: 36.2 (C) / 97.1 (F) We ight: 227 lbs Code: 97416-2 12/21/2019 Blood Pressure 1: 114/72 Code: 8480-6 BMI: 36.2 Code: 77692-8 Heart Rate 1: 60 bpm Height: 5'7" Code: 8302-2 Respiratory Rate: 20 bpm SpO2: 97% Temperature: 36.7 (C) / 98.1 (F) Weight: 231 lbs Code: 93178-0 09/02/2019 Blood Pressure 1: 138/85 Code: 8480-6 Heart Rate 1: 76 bpm Respiratory Rate: 20 bpm SpO2: 96% Temperature: 36.3 (C) / 97.3 (F) We ight: 226 lbs Code: 64408-9 07/09/2019 Blood Pressure 1: 123/63 Code: 8480-6 BMI: 34.9 Code: 71511-5 Heart Rate 1: 64 bpm Height: 5'7" Code: 8302-2 Respiratory Rate: 17 bpm SpO2: 97% Temperature: 37.0 (C) / 98.6 (F) Weight: 223 lbs Code: 11757-0 04/15/2019 Blood Pressure 1: 110/82 Code: 8480-6 Heart Rate 1: 66 bpm SpO2: 98% Temperature: 36.1 (C) / 96.9 (F) Weight: 223 lbs Code: 42741-7 04/07/2019 Blood Pressure 1: 132/80 Code: 8480-6 Heart Rate 1: 68 bpm Temperature: 36.9 (C) / 98.4 (F) Weight: 222 lbs Code: 55803-4 03/25/2019 Blood Pressure 1: 108/70 Code: 8480-6 Heart Rate 1: 64 bpm Respiratory Rate: 20 bpm SpO2: 96% Temperature: 36.2 (C) / 97.2 (F) We ight: 221 lbs Code: 27125-1 03/18/2019 Blood Pressure 1: 138/82 Code: 8480-6 Heart Rate 1: 74 bpm SpO2: 99% Temperature: 36.1 (C) / 96.9 (F) Weight: 223 lbs Code: 20627-0 01/26/2019 Blood Pressure 1: 138/90 Code: 8480-6 Heart Rate 1: 68 bpm SpO2: 96% Temperature: 35.9 (C) / 96.7 (F) Weight: 227 lbs Code: 86855-5 01/08/2019 Blood Pressure 1: 134/78 Code: 8480-6 BMI: 36.8 Code: 48456-8 Heart Rate 1: 76 bpm Height: 5'7" Code: 8302-2 SpO2: 93% Temperature: 3 6.4 (C) / 97.6 (F) Weight: 235 lbs Code: 58118-2 01/06/2019 Blood Pressure 1: 116/80 Code: 8480-6 Heart Rate 1: 72 bpm Respiratory Rate: 20 bpm SpO2: 98% Temperature: 36.5 (C) / 97.7 (F) We ight: 232 lbs Code: 63173-2 12/11/2018 Blood Pressure 1: 120/82 Code: 8480-6 BMI: 36.2 Code: 59567-7 Heart Rate 1: 67 bpm Height: 5'7" Code: 8302-2 Respiratory Rate: 18 bpm SpO2: 96% Temperature: 35.9 (C) / 96.7 (F) Weight: 231 lbs Code: 17930-6 10/30/2018 Blood Pressure 1: 126/82 Code: 8480-6 Heart Rate 1: 80 bpm Respiratory Rate: 20 bpm SpO2: 96% Temperature: 36.8 (C) / 98.3 (F) We ight: 228 lbs Code: 33559-2 10/07/2018 Blood Pressure 1: 130/90 Code: 8480-6 Heart Rate 1: 76 bpm Respiratory Rate: 24 bpm SpO2: 97% Temperature: 36.0 (C) / 96.8 (F) We ight: 229 lbs Code: 13092-4 06/23/2018 Blood Pressure 1: 132/80 Code: 8480-6 Heart Rate 1: 72 bpm Respiratory Rate: 20 bpm SpO2: 98% Temperature: 36.7 (C) / 98.0 (F) We ight: 233 lbs Code: 80193-3 01/16/2018 Blood Pressure 1: 116/82 Code: 8480-6 Heart Rate 1: 72 bpm Respiratory Rate: 20 bpm SpO2: 96% Temperature: 36.9 (C) / 98.5 (F) We ight: 230 lbs Code: 80366-9 10/16/2017 Blood Pressure 1: 116/74 Code: 8480-6 BMI: 35.1 Code: 73689-7 Heart Rate 1: 76 bpm Height: 5'7" Code: 8302-2 Respiratory Rate: 20 bpm SpO2: 98% Temperature: 36.7 (C) / 98.1 (F) Weight: 224 lbs Code: 01905-7 09/12/2017 Blood Pressure 1: 124/78 Code: 8480-6 BMI: 34.6 Code: 47153-7 Heart Rate 1: 84 bpm Height: 5'7" Code: 8302-2 Respiratory Rate: 20 bpm SpO2: 95% Temperature: 36.6 (C) / 97.8 (F) Weight: 221 lbs Code: 86344-1 08/20/2017 Blood Pressure 1: 126/78 Code: 8480-6 Heart Rate 1: 92 bpm Height: 5'7" Code: 8302-2 Respiratory Rate: 20 bpm SpO2: 96% Temperature: 36 .9 (C) / 98.5 (F) 08/13/2017 Blood Pressure 1: 124/80 Code: 8480-6 BMI: 34.8 Code: 82652-4 Heart Rate 1: 80 bpm Height: 5'7" Code: 8302-2 Respiratory Rate: 20 bpm SpO2: 96% Temperature: 36.7 (C) / 98.0 (F) Weight: 222 lbs Code: 54993-0 07/29/2017 Blood Pressure 1: 114/70 Code: 8480-6 BMI: 34.5 Code: 36527-7 Heart Rate 1: 76 bpm Height: 5'7" Code: 8302-2 Respiratory Rate: 20 bpm SpO2: 97% Temperature: 36.9 (C) / 98.4 (F) Weight: 220 lbs Code: 72445-4 07/25/2017 Blood Pressure 1: 142/76 Code: 8480-6 BMI: 34.9 Code: 61520-7 Heart Rate 1: 92 bpm Height: 5'7" Code: 8302-2 Respiratory Rate: 18 bpm SpO2: 96% Temperature: 36.7 (C) / 98.1 (F) Weight: 223 lbs Code: 51828-8 06/10/2017 Blood Pressure 1: 136/82 Code: 8480-6 BMI: 34.3 Code: 86071-1 Heart Rate 1: 68 bpm Height: 5'7" Code: 8302-2 Respiratory Rate: 20 bpm SpO2: 96% Temperature: 36.7 (C) / 98.0 (F) Weight: 219 lbs Code: 33285-5 05/28/2017 Blood Pressure 1: 136/70 Code: 8480-6 BMI: 34.1 Code: 34469-2 Heart Rate 1: 84 bpm Height: 5'7" Code: 8302-2 Respiratory Rate: 20 bpm SpO2: 95% Temperature: 35.9 (C) / 96.6 (F) Weight: 218 lbs Code: 78009-7 04/04/2017 Blood Pressure 1: 122/78 Code: 8480-6 BMI: 33.4 Code: 98657-8 Heart Rate 1: 68 bpm Height: 5'7" Code: 8302-2 Respiratory Rate: 20 bpm SpO2: 96% Temperature: 36.7 (C) / 98.0 (F) Weight: 213 lbs Code: 27610-3 11/28/2016 Blood Pressure 1: 114/82 Code: 8480-6 BMI: 33.7 Code: 82313-4 Heart Rate 1: 72 bpm Height: 5'7" Code: 8302-2 Respiratory Rate: 20 bpm SpO2: 98% Temperature: 36.4 (C) / 97.6 (F) Weight: 215 lbs Code: 57435-5 06/05/2016 Blood Pressure 1: 104/68 Code: 8480-6 BMI: 33.7 Code: 05510-3 Heart Rate 1: 68 bpm Height: 5'7" Code: 8302-2 Respiratory Rate: 20 bpm SpO2: 96% Temperature: 36.8 (C) / 98.2 (F) Weight: 215 lbs Code: 95650-3 11/08/2015 Blood Pressure 1: 122/70 Code: 8480-6 BMI: 33.8 Code: 19219-6 Heart Rate 1: 80 bpm Height: 5'7" Code: 8302-2 Respiratory Rate: 20 bpm Temperatu re: 36.8 (C) / 98.2 (F) Weight: 216 lbs Code: 20299-5 07/19/2015 Blood Pressure 1: 122/70 Code: 8480-6 BMI: 33.0 Code: 80690-7 Heart Rate 1: 80 bpm Height: 5'7" Code: 8302-2 Respiratory Rate: 18 bpm Temperatu re: 35.9 (C) / 96.6 (F) Weight: 211 lbs Code: 09491-4 03/28/2015 Blood Pressure 1: 124/70 Code: 8480-6 BMI: 31.8 Code: 25322-8 Heart Rate 1: 72 bpm Height: 5'7" Code: 8302-2 Respiratory Rate: 20 bpm Temperatu re: 36.8 (C) / 98.2 (F) Weight: 203 lbs Code: 60762-8 02/08/2015 Blood Pressure 1: 98/58 Code: 8480-6 BMI: 32.1 C ode: 56695-7 Heart Rate 1: 84 bpm Height: 5'7" Code: 8302-2 Respiratory Rate: 20 bpm Temperatu re: 36.7 (C) / 98.0 (F) Weight: 205 lbs Code: 96174-3 01/11/2015 Blood Pressure 1: 118/78 Code: 8480-6 BMI: 32.1 Code: 03881-5 Heart Rate 1: 84 bpm Height: 5'7" Code: 8302-2 Respiratory Rate: 20 bpm Temperatu re: 36.6 (C) / 97.9 (F) Weight: 205 lbs Code: 25618-7 11/24/2014 Blood Pressure 1: 124/80 Code: 8480-6 BMI: 32.0 Code: 66132-7 Heart Rate 1: 76 bpm Height: 5'7" Code: 8302-2 Respiratory Rate: 20 bpm Temperatu re: 36.2 (C) / 97.1 (F) Weight: 204 lbs Code: 40760-5 11/19/2014 Blood Pressure 1: 132/78 Code: 8480-6 BMI: 32.7 Code: 40234-0 Heart Rate 1: 68 bpm Height: 5'7" Code: 8302-2 Respiratory Rate: 20 bpm SpO2: 98% Temperature: 36.7 (C) / 98.0 (F) Weight: 209 lbs Code: 41040-6 10/27/2014 Blood Pressure 1: 118/76 Code: 8480-6 BMI: 32.6 Code: 93585-1 Heart Rate 1: 64 bpm Height: 5'7" Code: 8302-2 Respiratory Rate: 20 bpm Temperatu re: 36.7 (C) / 98.0 (F) Weight: 208 lbs Code: 51152-4 09/23/2014 Blood Pressure 1: 118/68 Code: 8480-6 BMI: 34.3 Code: 38089-2 Heart Rate 1: 78 bpm Height: 5'7" Code: 8302-2 Respiratory Rate: 22 bpm Temperatu re: 36.4 (C) / 97.6 (F) Weight: 219 lbs Code: 44222-2 07/28/2014 Blood Pressure 1: 126/80 Code: 8480-6 BMI: 33.5 Code: 80747-8 Heart Rate 1: 76 bpm Height: 5'7" Code: 8302-2 Respiratory Rate: 20 bpm Temperatu re: 36.4 (C) / 97.6 (F) Weight: 214 lbs Code: 12283-7 03/30/2014 Blood Pressure 1: 128/80 Code: 8480-6 BMI: 35.2 Code: 27472-6 Heart Rate 1: 88 bpm Height: 5'7" Code: 8302-2 Respiratory Rate: 20 bpm Temperatu re: 36.4 (C) / 97.6 (F) Weight: 225 lbs Code: 67775-0 11/24/2013 Blood Pressure 1: 124/82 Code: 8480-6 BMI: 35.6 Code: 22268-6 Heart Rate 1: 80 bpm Height: 5'7" Code: 8302-2 Respiratory Rate: 22 bpm Temperatu re: 36.2 (C) / 97.1 (F) Weight: 227 lbs Code: 94508-9 08/25/2013 Blood Pressure 1: 128/80 Code: 8480-6 BMI: 37.4 Code: 69773-7 Heart Rate 1: 76 bpm Height: 5'7" Code: 8302-2 Respiratory Rate: 20 bpm Temperatu re: 36.6 (C) / 97.9 (F) Weight: 239 lbs Code: 62925-5 06/29/2013 Blood Pressure 1: 106/78 Code: 8480-6 BMI: 38.1 Code: 46585-8 Heart Rate 1: 80 bpm Height: 5'7" Code: 8302-2 Respiratory Rate: 20 bpm Temperatu re: 36.6 (C) / 97.9 (F) Weight: 243 lbs Code: 51482-6 05/26/2013 Blood Pressure 1: 122/80 Code: 8480-6 BMI: 39.3 Code: 71844-8 Heart Rate 1: 80 bpm Height: 5'7" Code: 8302-2 Respiratory Rate: 20 bpm Temperatu re: 36.9 (C) / 98.4 (F) Weight: 251 lbs Code: 76097-0 05/06/2013 Blood Pressure 1: 128/78 Code: 8480-6 BMI: 39.2 Code: 76200-1 Heart Rate 1: 76 bpm Height: 5'7" Code: 8302-2 Respiratory Rate: 22 bpm Temperatu re: 35.8 (C) / 96.4 (F) Weight: 250 lbs Code: 70834-0 04/23/2013 Blood Pressure 1: 132/92 Code: 8480-6 BMI: 39.6 Code: 68026-4 Heart Rate 1: 88 bpm Height: 5'7" Code: 8302-2 Respiratory Rate: 28 bpm SpO2: 97% Temperature: 36.5 (C) / 97.7 (F) Weight: 253 lbs Code: 78136-5 03/31/2013 Blood Pressure 1: 122/80 Code: 8480-6 BMI: 39.0 Code: 95426-2 Heart Rate 1: 84 bpm Height: 5'7" Code: 8302-2 Respiratory Rate: 20 bpm Temperatu re: 36.6 (C) / 97.8 (F) Weight: 249 lbs Code: 07616-4 03/05/2013 Blood Pressure 1: 120/80 Code: 8480-6 BMI: 39.2 Code: 66043-0 Heart Rate 1: 60 bpm Height: 5'7" Code: 8302-2 Respiratory Rate: 22 bpm Temperatu re: 35.9 (C) / 96.6 (F) Weight: 250 lbs Code: 42291-2 02/04/2013 Blood Pressure 1: 124/80 Code: 8480-6 BMI: 38.4 Code: 43203-9 Heart Rate 1: 80 bpm Height: 5'7" Code: 8302-2 Respiratory Rate: 20 bpm Temperatu re: 36.4 (C) / 97.6 (F) Weight: 245 lbs Code: 18835-1 11/27/2012 Blood Pressure 1: 127/83 Code: 8480-6 Te mperature: 36.1 (C) / 96.9 (F) Weight: 243 lbs 2 oz Code: 15891-2 11/11/2012 Blood Pressure 1: 126/82 Code: 8480-6 BMI: 37.4 Code: 17793-2 Heart Rate 1: 80 bpm Height: 5'7" Code: 8302-2 Respiratory Rate: 20 bpm Temperatu re: 36.8 (C) / 98.2 (F) Weight: 239 lbs Code: 08357-6 10/20/2012 Blood Pressure 1: 114/80 Code: 8480-6 BMI: 37.1 Code: 92817-8 Heart Rate 1: 104 bpm Height: 5'7" Code: 8302-2 Respiratory Rate: 20 bpm Temperatu re: 36.9 (C) / 98.4 (F) Weight: 237 lbs Code: 01041-3 09/03/2012 Blood Pressure 1: 118/72 Code: 8480-6 BMI: 37.3 Code: 02349-1 Heart Rate 1: 70 bpm Height: 5'7" Code: 8302-2 Temperature: 35.6 (C) / 96.0 (F) Weight: 238 lbs Code: 31674-5 07/23/2012 Blood Pressure 1: 124/78 Code: 8480-6 BMI: 36.8 Code: 88292-7 Heart Rate 1: 68 bpm Height: 5'7" Code: 8302-2 Temperature: 35.6 (C) / 96.0 (F) Weight: 235 lbs Code: 14791-4 05/20/2012 Blood Pressure 1: 112/70 Code: 8480-6 BMI: 37.1 Code: 76263-7 Heart Rate 1: 76 bpm Height: 5'7" Code: 8302-2 Respiratory Rate: 20 bpm Temperatu re: 36.7 (C) / 98.1 (F) Weight: 237 lbs Code: 78319-1 04/04/2012 Blood Pressure 1: 110/64 Code: 8480-6 BMI: 37.1 Code: 70395-8 Heart Rate 1: 68 bpm Height: 5'7" Code: 8302-2 Temperature: 36.1 (C) / 97.0 (F) Weight: 237 lbs Code: 60797-9 02/20/2012 Blood Pressure 1: 136/78 Code: 8480-6 BMI: 37.1 Code: 38370-6 Heart Rate 1: 72 bpm Height: 5'7" Code: 8302-2 Respiratory Rate: 20 bpm Temperatu re: 36.7 (C) / 98.0 (F) Weight: 237 lbs Code: 80226-8 01/02/2012 Blood Pressure 1: 122/70 Code: 8480-6 BMI: 37.1 Code: 90946-5 Heart Rate 1: 76 bpm Height: 5'7" Code: 8302-2 Respiratory Rate: 20 bpm Temperatu re: 37.0 (C) / 98.6 (F) Weight: 237 lbs Code: 30506-4 09/04/2011 Blood Pressure 1: 120/84 Code: 8480-6 BMI: 35.4 Code: 50829-0 Heart Rate 1: 68 bpm Height: 5'7" Code: 8302-2 Temperature: 30.0 (C) / 86.0 (F) Weight: 226 lbs Code: 27989-2 08/14/2011 Blood Pressure 1: 120/82 Code: 8480-6 BMI: 36.5 Code: 99682-6 Heart Rate 1: 80 bpm Height: 5'7" Code: 8302-2 Temperature: 36.6 (C) / 97.8 (F) Weight: 233 lbs Code: 71209-3 07/31/2011 Blood Pressure 1: 138/86 Code: 8480-6 BMI: 37.0 Code: 48369-3 Heart Rate 1: 94 bpm Height: 5'7" Code: 8302-2 Temperature: 35.4 (C) / 95.7 (F) Weight: 236 lbs Code: 71318-9 07/25/2011 Blood Pressure 1: 128/80 Code: 8480-6 BMI: 37.0 Code: 20389-5 Heart Rate 1: 80 bpm Height: 5'7" Code: 8302-2 Temperature: 35.6 (C) / 96.0 (F) Weight: 236 lbs Code: 38807-3 07/12/2011 Blood Pressure 1: 132/80 Code: 8480-6 BMI: 37.0 Code: 03781-5 Heart Rate 1: 96 bpm Height: 5'7" Code: 8302-2 Respiratory Rate: 20 bpm Temperatu re: 36.3 (C) / 97.3 (F) Weight: 236 lbs Code: 50572-0 05/09/2011 Blood Pressure 1: 106/78 Code: 8480-6 BMI: 36.6 Code: 40060-3 Heart Rate 1: 72 bpm Height: 5'7" Code: 8302-2 Respiratory Rate: 20 bpm Temperatu re: 36.4 (C) / 97.6 (F) Weight: 234 lbs Code: 43818-4 05/02/2011 Blood Pressure 1: 96/72 Code: 8480-6 BMI: 36.6 C ode: 45160-1 Heart Rate 1: 108 bpm Height: 5'7" Code: 8302-2 Respiratory Rate: 24 bpm Temperatu re: 36.7 (C) / 98.0 (F) Weight: 234 lbs Code: 33345-2 04/25/2011 Blood Pressure 1: 120/72 Code: 8480-6 BMI: 36.5 Code: 59758-2 Heart Rate 1: 70 bpm Height: 5'7" Code: 8302-2 Temperature: 36.7 (C) / 98.0 (F) Weight: 233 lbs Code: 10646-5 04/04/2011 Blood Pressure 1: 126/92 Code: 8480-6 BMI: 36.5 Code: 64716-3 Heart Rate 1: 84 bpm Height: 5'7" Code: 8302-2 Respiratory Rate: 20 bpm Temperatu re: 36.2 (C) / 97.2 (F) Weight: 233 lbs Code: 10624-3 03/01/2011 Blood Pressure 1: 132/78 Code: 8480-6 Heart Rate 1: 88 bpm Temperature: 36.8 (C) / 98.2 (F) Weight: 231 lbs Code: 22635-7 01/04/2011 Blood Pressure 1: 122/78 Code: 8480-6 BMI: 37.0 Code: 61650-0 Heart Rate 1: 80 bpm Height: 5'7" Code: 8302-2 Temperature: 37.0 (C) / 98.6 (F) Weight: 236 lbs Code: 43728-3 12/07/2010 Blood Pressure 1: 132/92 Code: 8480-6 Heart Rate 1: 98 bpm Temperature: 36.2 (C) / 97.2 (F) Weight: 237 lbs Code: 40546-3 10/09/2010 Blood Pressure 1: 128/80 Code: 8480-6 Heart Rate 1: 72 bpm Temperature: 36.5 (C) / 97.7 (F) Weight: 244 lbs Code: 22802-0 08/07/2010 Blood Pressure 1: 114/80 Code: 8480-6 Heart Rate 1: 72 bpm Temperature: 36.2 (C) / 97.1 (F) Weight: 245 lbs Code: 53284-5 06/06/2010 Blood Pressure 1: 132/86 Code: 8480-6 Heart Rate 1: 80 bpm Temperature: 36.8 (C) / 98.2 (F) Weight: 242 lbs Code: 14512-4 04/12/2010 Blood Pressure 1: 126/82 Code: 8480-6 Heart Rate 1: 72 bpm Temperature: 36.8 (C) / 98.2 (F) Weight: 237 lbs Code: 90362-2 03/20/2010 Blood Pressure 1: 124/78 Code: 8480-6 Heart Rate 1: 76 bpm Temperature: 36.1 (C) / 97.0 (F) Weight: 239 lbs Code: 80024-5 01/30/2010 Blood Pressure 1: 118/80 Code: 8480-6 Heart Rate 1: 84 bpm Temperature: 37.1 (C) / 98.7 (F) Weight: 239 lbs Code: 40032-5 01/09/2010 Blood Pressure 1: 120/72 Code: 8480-6 BMI: 36.8 Code: 15663-2 Heart Rate 1: 80 bpm Height: 5'7" Code: 8302-2 Temperature: 36.1 (C) / 97.0 (F) Weight: 235 lbs Code: 26623-1 11/07/2009 Blood Pressure 1: 140/36 Cod e: 8480-6 10/26/2009 Blood Pressure 1: 126/82 Code: 8480-6 BMI: 36.9 Code: 64434-6 Heart Rate 1: 84 bpm Height: 5'7" Code: 8302-2 Temperature: 36.5 (C) / 97.7 (F) Weight: 234 lbs Code: 80350-6 10/17/2009 Blood Pressure 1: 140/88 Code: 8480-6 BMI: 36.3 Code: 01541-7 Heart Rate 1: 88 bpm Height: 5'7" Code: 8302-2 Temperature: 36.7 (C) / 98.0 (F) Weight: 232 lbs Code: 17712-4 10/04/2009 Blood Pressure 1: 140/90 Code: 8480-6 BMI: 36.3 Code: 44735-0 Heart Rate 1: 84 bpm Height: 5'7" Code: 8302-2 Temperature: 36.4 (C) / 97.6 (F) Weight: 232 lbs Code: 59836-5 09/21/2009 Blood Pressure 1: 136/82 Code: 8480-6 BMI: 36.3 Code: 98917-4 Heart Rate 1: 88 bpm Height: 5'7" Code: 8302-2 Temperature: 35.8 (C) / 96.4 (F) Weight: 232 lbs Code: 75326-7 Functional Status No Functional Status data Reason For Visit Reason For Visit Effective Dates Notes hyperlipidemia 08/07/2022 depression 08/07/2022 pt states she [...] 09/04/2011 chest congestion 09/04/2011 follow up 08/14/2011 [facility] 08/14/2011 venous thrombosis 08/14/2011 abdominal pain [...] Codes Date () OFFICE/OUTPATIENT VISIT EST Diagnosis: Hypothyroidism[ICD10: E03.9] Diagnosis: Essential (primary) hypertension[ICD10: I10] Diagnosis: Mixed hyperlipidemia[ICD10: E78.2] Diagnosis: Stress at home[ICD10: F43.9] Jayna VANESSA ALENTY [address] [place] [phone] CPT-4: 73570 08/07/2022 ([id number]) OFFICE/OUTPATIENT VISIT EST Diagnosis: Acute cystitis[ICD10: N30.00] Marlene VANESSA ALENTY [address] [place] [phone] CPT-4: 43860 06/29/2022 ([id number]) OFFICE/OUTPATIENT VISIT EST Diagnosis: Depression[ICD10: F32.A] Diagnosis: Hypothyroidism[ICD10: E03.9] Jayna VANESSA ALENTY [address] [place] [phone] CPT-4: 03938 05/28/2022 ([id number]) OFFICE/OUTPATIENT VISIT EST Diagnosis: Depression[ICD10: F32.A] Diagnosis: Fatigue[ICD10: R53.83] Diagnosis: Hypothyroidism[ICD10: E03.9] Diagnosis: Hyperglycemia[ICD10: R73.9] Jayna Vanessa JAYNA TracyPaige PUCKETT [address] [address] CPT-4: 83794 05/10/2022 ([id number]) OFFICE/OUTPATIENT VISIT EST Diagnosis: Migraine, intractable[ICD10: G43.919] Marlene Chantaleverenice NIEVES BUZZ TracyPaige ANDIE [address] [address] CPT-4: 08669 04/18/2022 ([id number]) NURSE/OUTPATIENT VISIT EST Diagnosis: FLU VACCINE[ICD10: Z23] Jayna Greenbergallie Sanchez JESSICASHONA JIANG [address] [address] CPT-4: 27354 04/05/2022 ([id number]) OFFICE/OUTPATIENT VISIT EST Diagnosis: Allergic rhinitis[ICD10: J30.9] Diagnosis: Acute sinusitis[ICD10: J01.90] 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] Jayna Greenbergallie GUTIERREZ TracyPaige ANDIE [address] [address] CPT-4: 95044 02/15/2022 ([id number]) Annual depression screening, 15 minutes Diagnosis: Encounter for general adult medical examination without abnormal findings[ICD10: Z00.00] Diagnosis: Essential (primary) hypertension[ICD10: I10] Diagnosis: Mixed hyperlipidemia[ICD10: E78.2] Diagnosis: Hypothyroidism, unspecified[ICD10: E03.9] Diagnosis: Chronic obstructive pulmonary disease, unspecified[ICD10: J44.9] Jayna Vanessa JAYNA TracyPaige ANDIE [address] [address] CPT-4: G0444 02/06/2022 ([id number]) OFFICE/OUTPATIENT VISIT EST Diagnosis: 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] Diagnosis: Vision changes[ICD10: H53.9] Latashaalicia VANESSA DO [address] [address] CPT-4: 73805 02/01/2022 ([id number]) OFFICE/OUTPATIENT VISIT EST Diagnosis: Diarrhea[ICD10: R19.7] Diagnosis: Cough[ICD10: R05.9] Jayna VANESSA DO [address] [address] CPT-4: 17196 11/30/19 ([id number]) OFFICE/OUTPATIENT VISIT EST Diagnosis: Post-viral cough syndrome[ICD10: R05.8] Diagnosis: Otalgia of both ears[ICD10: H92.03] Diagnosis: Diarrhea[ICD10: R19.7] Jaynaparam Vanessa JAYNA Daniel Villalba DO [address] [address] CPT-4: 76081 11/22/2021 ([id number]) OFFICE/OUTPATIENT VISIT EST Diagnosis: Diarrhea of presumed infectious origin[ICD10: R19.7] Diagnosis: Altered taste[ICD10: R43.2] Diagnosis: Chronic bronchitis[ICD10: J42] Diagnosis: History of recent pneumonia[ICD10: Z87.01] Latasha VANESSA DO [address] [address] CPT- 4: 64516 11/21/2021 ([id number]) OFFICE/OUTPATIENT VISIT EST Diagnosis: Serous otitis media[ICD10: H65.90] Diagnosis: Postnasal drip[ICD10: R09.82] Diagnosis: Pneumonia[ICD10: J18.9] Jayna MORILLOLINE Daniel JIANG DO [address] [address] CPT-4: 28083 11/09/2021 ([id number]) NO CHARGE Diagnosis: Pneumonia[ICD10: J18.9] Diagnosis: Respiratory distress[ICD10: R06.03] Jayna KENNEY Daniel VANESSA [address] [address] CPT-4: 57299 10/31/2021 ([id number]) OFFICE/OUTPATIENT VISIT EST Diagnosis: Vertigo[ICD10: R42] Diagnosis: Nausea[ICD10: R11.0] Diagnosis: Pneumonia[ICD10: J18.9] Jayna BRUCE ER DO [address] [address] CPT-4: 99663 10/30/2021 ([id number]) OFFICE/OUTPATIENT VISIT EST Diagnosis: Cervicalgia[ICD10: M54.2] Jayna MAGANAR [address] [address] CPT-4: 81004 09/05/2021 ([id number]) OFFICE/OUTPATIENT VISIT EST Diagnosis: 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] Diagnosis: Seronegative rheumatoid arthritis[ICD10: M06.00] Latasha Castillomarthahoa VANESSA [address] [address] CPT- 4: 63609 08/24/2021 ([id number]) OFFICE/OUTPATIENT VISIT EST Diagnosis: Upper respiratory infection[ICD10: J06.9] Diagnosis: Contact with and (suspected) exposure to other viral communicable diseases[ICD10: Z20.828] Latasha VANESSA [address] [address] CPT-4: 69757 07/04/2021 ([id number]) NURSE/OUTPATIENT VISIT EST Diagnosis: FLU VACCINE[ICD10: Z23] Jayna BRUCE ER DO [address] [address] CPT-4: 94103 03/29/2021 ([id number]) OFFICE/OUTPATIENT VISIT EST Diagnosis: Vasovagal episode[ICD10: R55] Diagnosis: Orthostatic hypotension[ICD10: I95.1] Latasha Castillomatthew EZEQUIEL [address]UCE[address] [address] CPT-4: 66039 03/01/2021 ([id number]) OFFICE/OUTPATIENT VISIT EST Diagnosis: Sebaceous cyst of right axilla[ICD10: L72.3] Latasha VANESSA DO [address] [address] CPT- 4: 91771 02/08/2021 ([id number]) OFFICE/OUTPATIENT VISIT EST Diagnosis: Contact dermatitis[ICD10: L25.9] Jayna VANESSA DO [address] [address] CPT-4: 51762 01/19/2021 ([id number]) OFFICE/OUTPATIENT VISIT EST Diagnosis: Upper respiratory infection[ICD10: J06.9] Diagnosis: COPD exacerbation[ICD10: J44.1] Latasha VANESSA DO [address] [address] CPT-4: 38947 11/29/2020 ([id number]) OFFICE/OUTPATIENT VISIT EST Diagnosis: Sinusitis[ICD10: J32.9] Diagnosis: Acute pansinusitis, recurrence not specified[ICD10: J01.40] Latasha VANESSA DO [address] [address] CPT-4: 73074 09/29/2020 OFFICE/OUTPATIENT VISIT EST Diagnosis: Other seasonal allergic rhinitis[ICD10: J30.2] Diagnosis: Chronic bronchitis[ICD10: J42] Diagnosis: 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] Diagnosis: Middle ear effusion[ICD10: H65.90] Diagnosis: Fluid level behind tympanic membrane of both ears[ICD10: H65.93] Latasha VANESSA DO [address] [address] CPT-4: 80423 09/19/2020 ([id number]) OFFICE/OUTPATIENT VISIT EST Diagnosis: Right-sided tinnitus[ICD10: H93.11] Jayna KENNEY Daniel VANESSA [address] [address] CPT-4: 19676 08/10/2020 ([id number]) OFFICE/OUTPATIENT VISIT EST Diagnosis: Dysfunction of right eustachian tube[ICD10: H69.81] Diagnosis: Right-sided tinnitus[ICD10: H93.11] [facility] [address] [place] [address] CPT-4: 21428 2020 ([id number]) OFFICE/OUTPATIENT VISIT EST Diagnosis: Pyelonephritis[ICD10: N12] Diagnosis: Anemia[ICD10: D64.9] Diagnosis: Blood in stool[ICD10: K92.1] Jayna GUTIERREZ TracyPaige ANDIE [address] [address] CPT-4: 83096 07/13/2020 ([id number]) OFFICE/OUTPATIENT VISIT EST Diagnosis: Acute gastroenteritis[ICD10: K52.9] Jayna KENNEY TracyPaige ANDIE [address] [address] CPT-4: 10238 07/05/2020 ([id number]) OFFICE/OUTPATIENT VISIT EST Diagnosis: Essential hypertension[ICD10: I10] Diagnosis: Hypothyroidism, unspecified[ICD10: E03.9] Diagnosis: Metabolic syndrome[ICD10: E88.81] Diagnosis: Mixed hyperlipidemia[ICD10: E78.2] Diagnosis: 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 [address] [place] [address] CPT-4: 74859 03/14/2020 ([id number]) OFFICE/OUTPATIENT VISIT EST Diagnosis: COVID-19[ICD10: U07.1] Diagnosis: Pneumonia[ICD10: J18.9] Diagnosis: Dyspnea[ICD10: R06.00] Jaynaparam GUTIERREZ TracyPaige JESSICASHONAMartha Villalba DO [facility] [address] [place] [address] CPT-4: 67733 03/07/2020 ([id number]) OFFICE/OUTPATIENT VISIT EST Diagnosis: Upper respiratory infection[ICD10: J06.9] Genesis Fernández Wanda MUNOZBUZZ VANESSA [facility] [address] [place] [address] CPT-4: 69793 02/11/2020 ([id number]) OFFICE/OUTPATIENT VISIT EST Diagnosis: Dermatitis[ICD10: L30.9] Diagnosis: Urticaria[ICD10: L50.9] Jayna Vanessa [facility] [address] [place] [address] CPT-4: 95287 09/29/2019 ([id number]) OFFICE/OUTPATIENT VISIT EST Diagnosis: Bone spur of right foot[ICD10: M77.51] Diagnosis: Recurrent UTI[ICD10: N39.0] Diagnosis: MRSA (methicillin resistant staph aureus) culture positive[ICD10: Z22.322] Jayna Vanessa [facility] [address] [place] [address] CPT-4: 24557 09/14/2019 ([id number]) NURSE/OUTPATIENT VISIT EST Diagnosis: Urinary tract infection[ICD10: N39.0] Jayna Oreallie GERBER TracyPaige JESSICASHONAAPOLINAR [facility] [address] [place] [address] CPT-4: 09200 09/11/2019 ([id number]) NURSE/OUTPATIENT VISIT EST Diagnosis: Urinary tract infection, site not specified[ICD10: N39.0] Jayna GUTIERREZ TracyPaige ANDIE [facility] [address] [place] [address] CPT-4: 36210 09/08/2019 ([id number]) NURSE/OUTPATIENT VISIT EST Diagnosis: Urinary tract infection, site not specified[ICD10: N39.0] Jayna [facility] [address] [place] [address] CPT-4: 67512 09/07/2019 ([id number]) OFFICE/OUTPATIENT VISIT EST Diagnosis: Pelvic pain in female[ICD10: R10.2] Diagnosis: Urinary frequency[ICD10: R35.0] Genesis [facility] [address] [place] [address] CPT-4: 92039 09/02/2019 ([id number]) OFFICE/OUTPATIENT VISIT EST Diagnosis: Sinusitis[ICD10: J32.9] Genesis JIANG DO [address] [address] CPT-4: 94075 07/09/2019 ([id number]) OFFICE/OUTPATIENT VISIT EST Diagnosis: UTI (urinary tract infection)[ICD10: N39.0] Diagnosis: FLU VACCINE[ICD10: Z23] Genesis BRUCE ER DO [address] [address] CPT-4: 52800 04/15/2019 ([id number]) OFFICE/OUTPATIENT VISIT EST Diagnosis: Pain in right leg[ICD10: M79.604] Genesis [facility] [address] [place] [address] CPT-4: 49339 04/07/2019 ([id number]) OFFICE/OUTPATIENT VISIT EST Diagnosis: Diverticulitis of large intestine without perforation or abscess without bleeding[ICD10: K57.32] Diagnosis: Cystitis[ICD10: N30.90] Jayna [facility] [address] [place] [address] CPT-4: 10004 03/25/2019 ([id number]) OFFICE/OUTPATIENT VISIT EST Diagnosis: Abdominal pain[ICD10: R10.9] Diagnosis: Cystitis[ICD10: N30.90] Jayna JIANG DO [address] [address] CPT-4: 56865 03/18/2019 ([id number]) OFFICE/OUTPATIENT VISIT EST Diagnosis: Diverticulitis of large intestine without perforation or abscess without bleeding[ICD10: K57.32] Diagnosis: Generalized abdominal pain[ICD10: R10.84] Diagnosis: Urinary tract infection, site not specified[ICD10: N39.0] Genesis VANESSA DO [address] [address] CPT-4: 19858 01/26/2019 ([id number]) OFFICE/OUTPATIENT VISIT EST Diagnosis: Mild intermittent asthma with (acute) exacerbation[ICD10: J45.21] Diagnosis: Allergic rhinitis due to pollen[ICD10: J30.1] Jayna VANESSA DO [address] [address] CPT- 4: 60146 01/08/2019 ([id number]) OFFICE/OUTPATIENT VISIT EST Diagnosis: Mild intermittent asthma with (acute) exacerbation[ICD10: J45.21] Diagnosis: URI, ACUTE[ICD10: J06.9] Diagnosis: Urinary tract infection, site not specified[ICD10: N39.0] Jayna VANESSA DO [address] [address] CPT-4: 86205 01/06/2019 ([id number]) OFFICE/OUTPATIENT VISIT EST Diagnosis: Benign paroxysmal vertigo, bilateral[ICD10: H81.13] Diagnosis: Migraine without aura, not intractable, without status migrainosus[ICD10: G43.009] Jayna VANESSA DO [address] [address] CPT-4: 33391 10/30/2018 ([id number]) OFFICE/OUTPATIENT VISIT EST Diagnosis: Acute bronchitis, unspecified[ICD10: J20.9] Diagnosis: Cough[ICD10: R05] Diagnosis: Other seasonal allergic rhinitis[ICD10: J30.2] Stacey GREENBERGNDER DO [employer] [address] [place] [address] CPT- 4: 76536 10/07/2018 ([id number]) OFFICE/OUTPATIENT VISIT EST Diagnosis: Pain in unspecified joint[ICD10: M25.50] Diagnosis: Pain in right ankle and joints of right foot[ICD10: M25.571] Diagnosis: Other specified disorders of bone density and structure, unspecified site[ICD10: M85.80] Jaynaparam GUTIERREZ Daniel BRUCEER DO [address] [address] CPT-4: 71160 06/23/2018 ([id number]) OFFICE/OUTPATIENT VISIT EST Diagnosis: Hypothyroidism, unspecified[ICD10: E03.9] Diagnosis: Mixed hyperlipidemia[ICD10: E78.2] Jayna ALVARENGA Daniel GREENBERGNDER DO [address] [address] CPT-4: 60503 01/16/2018 ([id number]) OFFICE/OUTPATIENT VISIT EST Diagnosis: Cervicalgia[ICD10: M54.2] Genesis MORILLOLINE Daniel GREENBERG NDEDeejay [address] [address] CPT-4: 15435 10/16/2017 ([id number]) OFFICE/OUTPATIENT VISIT EST Diagnosis: Headache[ICD10: R51] Diagnosis: Dizziness and giddiness[ICD10: R42] Jayna KENNEY Daniel GREENBERGNDER DO [employer] [address] [place] [address] CPT-4: 28907 09/12/2017 OFFICE/OUTPATIENT VISIT EST Diagnosis: Cough[ICD10: R05] Genesis MORILLOLINE Daniel GREENBERGNDER DO [facility] [address] [place] [address] CPT-4: 47801 08/20/2017 ([id number]) OFFICE/OUTPATIENT VISIT EST Diagnosis: COUGH[ICD10: R05] Jayna VANESSA DO [address] [address] CPT-4: 47721 08/13/19 ([id number]) OFFICE/OUTPATIENT VISIT EST Diagnosis: Acute bronchospasm[ICD10: J98.01] Jayna VANESSA DO [address] [address] CPT-4: 48926 07/29/2017 OFFICE/OUTPATIENT VISIT EST Diagnosis: Influenza due to identified novel influenza A virus with other respiratory manifestations[ICD10: J09.X2] Genesis VANESSA DO [address] [address] CPT-4: 06509 07/25/2017 ([id number]) OFFICE/OUTPATIENT VISIT EST Diagnosis: Pain in unspecified joint[ICD10: M25.50] Jayna VANESSA DO [address] [address] CPT- 4: 54109 06/10/2017 OFFICE/OUTPATIENT VISIT EST Diagnosis: Acute bronchitis, unspecified[ICD10: J20.9] Genesis VANESSA DO [address] [address] CPT- 4: 14696 05/28/2017 ([id number]) OFFICE/OUTPATIENT VISIT EST Diagnosis: Hypothyroidism, unspecified[ICD10: E03.9] Diagnosis: Mixed hyperlipidemia[ICD10: E78.2] Diagnosis: Lemjg-8-tofxhojwalz 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] Diagnosis: Sebaceous cyst[ICD10: L72.3] Jayna VANESSA DO [address] [address] CPT-4: 61957 11/28/2016 ([id number]) OFFICE/OUTPATIENT VISIT EST Diagnosis: Right upper quadrant pain[ICD10: R10.11] Diagnosis: Epigastric pain[ICD10: R10.13] Jayna [facility] [address] [place] [address] CPT-4: 25909 06/05/2016 ([id number]) OFFICE/OUTPATIENT VISIT EST Diagnosis: FLU VACCINE[ICD10: Z23] Jayna JIANG [address] [address] CPT-4: 89493 05/01/2016 OFFICE/OUTPATIENT VISIT EST Diagnosis: Hypothyroidism, unspecified[ICD10: E03.9] Diagnosis: Type 1 diabetes mellitus without complications[ICD10: E10.9] Diagnosis: Mixed hyperlipidemia[ICD10: E78.2] Diagnosis: Essential (primary) hypertension[ICD10: I10] Diagnosis: Mixed incontinence[ICD10: N39.46] Jayna VANESSA DO [employer] [address] [place] [address] CPT-4: 17411 11/08/2015 ([id number]) OFFICE/OUTPATIENT VISIT EST Diagnosis: Hypothyroidism, unspecified[ICD10: E03.9] Diagnosis: Other fatigue[ICD10: R53.83] Jayna VANESSA ALENTY [address] [place] [address] CPT-4: 11318 07/19/2015 ([id number]) OFFICE/OUTPATIENT VISIT EST Diagnosis: Hypothyroidism, unspecified[ICD10: E03.9] Diagnosis: Mixed hyperlipidemia[ICD10: E78.2] Diagnosis: Metabolic syndrome[ICD10: E88.81] Diagnosis: Right lower quadrant abdominal tenderness[ICD10: R10.813] Diagnosis: FLU VACCINE[ICD10: Z23] Jayna JIANG [address] [address] CPT-4: 39156 03/28/2015 ([id number]) OFFICE/OUTPATIENT VISIT EST Diagnosis: MALAISE AND FATIGUE[ICD9: 780.79] Diagnosis: DEPRESSIVE DISORDER NEC[ICD9: 311] Diagnosis: HYPOTHYROIDISM[ICD9: 244.9] Diagnosis: PNEUMOCOCCAL VACCINE[ICD10: Z23] Jayna [facility] [address] [place] [address] CPT-4: 76673 02/08/2015 ([id number]) OFFICE/OUTPATIENT VISIT EST Diagnosis: MALAISE AND FATIGUE[ICD9: 780.79] Diagnosis: DEPRESSIVE DISORDER NEC[ICD9: 311] Diagnosis: HYPOTHYROIDISM[ICD9: 244.9] Diagnosis: ARTHRALGIA-MULTIPLE SITES[ICD9: 719.49] Jayna SAM TracyPaige ANDIE SAEZ [employer] [address] [place] [address] CPT-4: 63147 01/11/2015 ([id number]) OFFICE/OUTPATIENT VISIT EST 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] Diagnosis: - I - HYPOTHYROIDISM[ICD9: 244.9] Diagnosis: COUGH[ICD10: R05] Diagnosis: ALLERGIC RHINITIS[ICD9: 477.9] Diagnosis: Lumbar degenerative disc disease[ICD9: 722.52] Jayna GUTIERREZ TracyPaige ANDIE [address] [address] CPT- 4: 34298 11/24/2014 ([id number]) OFFICE/OUTPATIENT VISIT EST Diagnosis: Allergic reaction[ICD9: 995.3] Galina GUTIERREZ Tracy Paige JESSICASHONAAPOLINAR SAEZ [address] [address] CPT-4: 43890 11/19/2014 ([id number]) OFFICE/OUTPATIENT VISIT EST Diagnosis: ALLERGIC RHINITIS[ICD9: 477.9] Diagnosis: WHEEZING[ICD9: 786.07] Diagnosis: URINARY TRACT INFECTION[ICD9: 599.0] Diagnosis: Right flank pain[ICD9: 789.09] Conchita Gibson JESSICASHONAAPOLINAR ALENTY [address] [place] [address] CPT-4: 64186 10/27/2014 ([id number]) OFFICE/OUTPATIENT VISIT EST Diagnosis: URINARY TRACT INFECTION[ICD9: 599.0] Diagnosis: Flank pain[ICD9: 789.09] Conchita CARTER [address] [address] CPT-4: 05513 09/23/2014 ([id number]) OFFICE/OUTPATIENT VISIT EST Diagnosis: HYPERTENSION[ICD9: 401.9] Diagnosis: - I - HYPOTHYROIDISM[ICD9: 244.9] Diagnosis: HYPERLIPIDEMIA NEC/NOS[ICD9: 272.4] Diagnosis: DYSMETABOLIC SYNDROME X[ICD9: 277.7] Jayna QUEZADA SPaige ORENDER DO [address] [address] CPT-4: 67063 07/28/2014 OFFICE/OUTPATIENT VISIT EST Diagnosis: HYPERTENSION[ICD9: 401.9] Diagnosis: GROSS HEMATURIA[ICD9: 599.71] Jayna GUTIERREZ SPaige ORENDER DO [address] [address] CPT-4: 35241 03/30/2014 ([id number]) OFFICE/OUTPATIENT VISIT EST 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 O RENDER DO [address] [address] CPT-4: 04439 08/25/2013 OFFICE/OUTPATIENT VISIT EST Diagnosis: DEPRESSIVE DISORDER NEC[ICD9: 311] Jayna ALVARENGA S. ORENDER DO [employer] [address] [place] [address] CPT-4: 65791 06/29/2013 OFFICE/OUTPATIENT VISIT EST Diagnosis: DEPRESSIVE DISORDER NEC[ICD9: 311] Jayna ALVARENGA S. ORENDER [address] [address] CPT-4: 61741 05/26/2013 ([id number]) OFFICE/OUTPATIENT VISIT EST Diagnosis: BRONCHITIS, ACUTE[ICD9: 466.0] Diagnosis: HYPOTHYROIDISM[ICD9: 244.9] Diagnosis: HYPERLIPIDEMIA NEC/NOS[ICD9: 272.4] Diagnosis: Shoulder pain[ICD9: 719.41] Jayna PUCKETT [address] [address] CPT-4: 24739 05/06/2013 ([id number]) OFFICE/OUTPATIENT VISIT EST Diagnosis: BRONCHITIS, ACUTE[ICD9: 466.0] Diagnosis: SINUSITIS, ACUTE[ICD9: 461.9] Jayna VANESSA [address] [address] CPT-4: 27616 04/23/2013 ([id number]) OFFICE/OUTPATIENT VISIT EST Diagnosis: DYSPNEA[ICD9: 786.09] Diagnosis: EDEMA[ICD9: 782.3] Diagnosis: SYZJJ-7-MBLVHTRUIRP DEFICIENCY[ICD9: 273.4] Diagnosis: COUGH[ICD9: 786.2] Jayna VANESSA [address] [address] CPT-4: 81837 03/31/20 OFFICE/OUTPATIENT VISIT EST Diagnosis: Chest pain[ICD9: 786.50] Diagnosis: ANXIETY STATE NOS[ICD9: 300.00] Conchita Liborio JAYNA VANESSA [address] [address] CPT-4: 59503 03/05/2013 ([id number]) OFFICE/OUTPATIENT VISIT EST Diagnosis: HYPERLIPIDEMIA NEC/NOS[ICD9: 272.4] Diagnosis: HYPOTHYROIDISM[ICD9: 244.9] Diagnosis: Vahcd-0-skvqmaqpfyj deficiency[ICD9: 273.4] Diagnosis: ALLERGIC RHINITIS[ICD9: 477.9] Jayna VANESSA [address] [address] CPT-4: 11335 02/04/2013 ([id number]) OFFICE/OUTPATIENT VISIT EST Diagnosis: COUGH[ICD9: 786.2] Diagnosis: ALLERGIC RHINITIS[ICD9: 477.9] Jayna VANESSA DO [address] [address] CPT-4: 10369 11/27/2012 ([id number]) OFFICE/OUTPATIENT VISIT EST Diagnosis: COUGH[ICD9: 786.2] Diagnosis: DYSPNEA[ICD9: 786.09] Jayna VANESSA DO [address] [address] CPT-4: 48744 11/11/2012 ([id number]) OFFICE/OUTPATIENT VISIT EST Diagnosis: ABDOMINAL PAIN[ICD9: 789.00] Diagnosis: DIARRHEA[ICD9: 787.91] Diagnosis: COUGH[ICD9: 786.2] Jayna VANESSA DO [address] [address] CPT-4: 82051 10/21/19 OFFICE/OUTPATIENT VISIT EST Diagnosis: COUGH[ICD9: 786.2] Diagnosis: SINUSITIS, ACUTE[ICD9: 461.9] Diagnosis: PHARYNGITIS, ACUTE[ICD9: 462] Jayna VANESSA DO [address] [address] CPT-4: 60152 09/03/2012 OFFICE/OUTPATIENT VISIT EST Diagnosis: ABDOMINAL PAIN[ICD9: 789.00] Diagnosis: Diarrhea[ICD9: 787.91] Jayna Villalba DO [address] [address] CPT-4: 75285 07/23/2012 ([id number]) OFFICE/OUTPATIENT VISIT EST Diagnosis: DM 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 TYPE II, UNCONTROLLED[ICD9: 250.02] Diagnosis: HYPERLIPIDEMIA NEC/NOS[ICD9: 272.4] Diagnosis: GERD[ICD9: 530.81] Jayna VANESSA DO [facility] [address] [place] [address] CPT-4: 21351 05/20/20 12 OFFICE/OUTPATIENT VISIT EST Diagnosis: DERMATITIS NOS[ICD9: 692.9] Galina Leos JAYNA Partida [facility] [address] [address] CPT-4: 44533 04/04/2012 ([id number]) OFFICE/OUTPATIENT VISIT EST Diagnosis: HYPERLIPIDEMIA NEC/NOS[ICD9: 272.4] Diagnosis: HYPOTHYROIDISM[ICD9: 244.9] Diagnosis: DYSMETABOLIC SYNDROME X[ICD9: 277.7] Jayna Jessicashonaapolinar MORILLO PILAR Daniel VANESSA [address] [address] CPT-4: 46530 01/02/2012 OFFICE/OUTPATIENT VISIT EST Diagnosis: COUGH[ICD9: 786.2] Diagnosis: SINUSITIS, ACUTE[ICD9: 461.9] Lizzie Kelly JAYNA Daniel VANESSA [address] [address] CPT-4: 58795 09/04/2011 OFFICE/OUTPATIENT VISIT EST Diagnosis: Diverticulitis[ICD9: 562.11] Diagnosis: THROMBOPHLEBITIS[ICD9: 451.9] Jayna VANESSA [address] [address] CPT-4: 21088 08/14/2011 OFFICE/OUTPATIENT VISIT EST Diagnosis: COUGH[ICD9: 786.2] Jayna VANESSA [address] [address] CPT-4: 45774 07/25/19 OFFICE/OUTPATIENT VISIT EST Diagnosis: HYPOTHYROIDISM[ICD9: 244.9] Diagnosis: HYPERLIPIDEMIA NEC/NOS[ICD9: 272.4] Diagnosis: Total knee replacement status[ICD9: V43.65] Jayna VANESSA [address] [address] CPT- 4: 36432 07/12/2011 OFFICE/OUTPATIENT VISIT EST Diagnosis: BRONCHITIS, ACUTE[ICD9: 466.0] Diagnosis: COUGH[ICD9: 786.2] Jayna Sanchez [facility] [address] [place] [address] CPT-4: 80130 05/09/20 11 OFFICE/OUTPATIENT VISIT EST Diagnosis: BRONCHITIS, ACUTE[ICD9: 466.0] Diagnosis: ASTHMA NOS[ICD9: 493.90] Diagnosis: Pleurisy[ICD9: 511.0] Jayna Sanchez [facility] [address] [place] [address] CPT-4: 20379 05/02/2011 OFFICE/OUTPATIENT VISIT EST Diagnosis: COUGH[ICD9: 786.2] Jayna Sanchez [facility] [address] [place] [address] CPT-4: 77874 04/25/20 11 OFFICE/OUTPATIENT VISIT EST Diagnosis: COUGH[ICD9: 786.2] Diagnosis: SINUSITIS, ACUTE[ICD9: 461.9] Jayna MORILLOLINE Daniel ORENDER DO [facility] [address] [place] [address] CPT-4: 31738 04/04/2011 OFFICE/OUTPATIENT VISIT EST Diagnosis: HYPOTHYROIDISM[ICD9: 244.9] Diagnosis: Knee osteoarthritis[ICD9: 715.96] Jayna Jessicaallie Thomas TracyPaige ORENDER DO [employer] [address] [place] [address] CPT-4: 45937 03/01/2011 OFFICE/OUTPATIENT VISIT EST Jayna Jessicaallie GUTIERREZ Daniel ORE NDER DO [facility] [address] [place] [phone] CPT-4: 57664 01/04/2011 ([id number]) OFFICE/OUTPATIENT VISIT EST Jayna Bruceapolinar [facility] [address] [place] [phone] CPT-4: 33929 12/07/2010 ([id number]) OFFICE/OUTPATIENT VISIT EST Jayna Orender [facility] [address] [place] [phone] CPT-4: 91521 10/09/2010 ([id number]) OFFICE/OUTPATIENT VISIT EST Jayna PISANO [facility] [address] [place] [phone] CPT-4: 94318 08/07/2010 ([id number]) OFFICE/OUTPATIENT VISIT, EST Jaynapilar [facility] [address] [place] [phone] CPT-4: 45935 06/06/2010 ([id number]) OFFICE/OUTPATIENT VISIT, EST Jayna Jessicashonaapolinar [facility] [address] [place] [phone] CPT-4: 26462 03/20/2010 ([id number]) OFFICE/OUTPATIENT VISIT, EST Jayna Jessicashonaapolinar [facility] [address] [phone] CPT-4: 20779 01/30/2010 ([id number]) OFFICE/OUTPATIENT VISIT, EST Jayna Jessicashonaapolinar [facility] [address] [place] [phone] CPT-4: 38343 01/09/2010 ([id number]) OFFICE/OUTPATIENT VISIT, EST Jayna Jessicashonaapolinar [facility] [address] [place] [phone] CPT-4: 17996 10/26/2009 ([id number]) OFFICE/OUTPATIENT VISIT, EST Lizzie Kelly [facility] [address] [place] [phone] CPT-4: 20953 10/18/19 10 ([id number]) OFFICE/OUTPATIENT VISIT, EST Jayna Vanessa CHERELLE [facility] [address] [place] [phone] CPT-4: 92831 10/04/2009 ([id number]) OFFICE/OUTPATIENT VISIT, EST Jayna Oreallie VANESSA DO [facility] [address] [place] [address] CPT-4: 56318 09/21/2009 Plan of Care Planned Activity Notes Codes Status Date Visit Diagnosis Plan: Discussion: Stable Labs disc ussed 08/07/2022 Visit Diagnosis Plan: Essential (primary) hypertension Discussion: Stable ICD-9 : 401.9 ICD-10 : I10 08/07/2022 Visit Diagnosis Plan: Discussion: Update lipids 08/07/2022 Visit Diagnosis Plan: Stress at home Discussion: With 's health ICD-9 : V61.9 ICD-10 : F43.9 08/07/2022 Appointment: Jayna Vanessa WPtel: [address] [place], [place] [phone] US FOLLOW UP 08/07/2022 Visit Diagnosis Plan: [...] : N30.00 06/29/2022 Appointment: Marlene Staples WPtel: [facility]5 [phone] ACUTE ILLNESS 06/29/2022 Patient Education: ciprofloxacin HCl- OptimizeRX Coupon [id number] Completed 06/29/2022 Visit Diagnosis Plan: Depression Discussion: Increase Wellbutrin XL to 300mg po qAM Fwup 2 mos ICD-9 : 311 ICD-10 : F32.A 05/28/2022 Visit Diagnosis Plan: Hypothyroidism Discussion: Labs discussed Decrease levothyroxine to 150mcg 6 days a week and repeat thyroid lab in 2mos ICD-9 : 244.9 ICD-10 : E03.9 05/28/2022 Appointment: Jayna Vanessa WPtel: [address] [place], [place] [phone] US FOLLOW UP 05/28/2022 Visit Diagnosis Plan: [...] : R73.9 05/10/2022 Appointment: Jayna Vanessa WPtel: [address] [place], [place] [phone] US FOLLOW UP 05/10/2022 Visit Diagnosis Plan: Migraine, intractable Discussion : Toradol 30mg IM x1 given in clinic. Start Rizatriptan-- discussed on how to use and may repeat x1 dose 2 hours later. Restart propranolol for migraine prevention. Notify clinic if migraine not improving. ICD-9 : 346.91 ICD-10 : G43.919 04/18/2022 Appointment: Marlene Staples WPtel: [phone] [phone] ACUTE ILLNESS 04/18/2022 Patient Education: propranolol- OptimizeRX Coupon [id number] Completed 04/18/2022 Appointment: Jayna Vanessa WPtel: [address] [place], [place] [phone] US INJECTION 04/05/2022 Appointment: Jayna Vanessa WPtel: [address] [place], [place] [phone] US CANCELED 03/21/2022 Visit Diagnosis Plan: Acute sinusitis Discussion: Pred nisone Notify if worsening persists ICD-9 : 461.9 ICD-10 : J01.90 02/15/2022 Visit Diagnosis Plan: Bilateral temporomandibular join t disorder Discussion: Ice and prednisone If worsening will check ESR ICD-9 : 524.60 ICD-10 : M26.603 02/15/2022 Visit Diagnosis Plan: Allergic rhinitis Discussion: Co eber desaigavinmarissa rustam ICD-9 : 477.9 ICD-10 : J30.9 02/15/2022 Appointment: Jayna Vanessa WPtel: [address] [phone] ACUTE ILLNESS 02/15/2022 Patient Education: prednisone- OptimizeRX Coupon [phone] https://www.Judobaby/samplemd/resources/getResource/61/70o88hi5-g219-8f59-ru Completed 02/15/2022 Visit Diagnosis Plan: Hypothyroidism, unspecified Disc ussion: Stable ICD-9 : 244.9 ICD-10 : E03.9 02/06/2022 Visit Diagnosis Plan: Encounter for [facility] adult medical examination without abnormal findings [...] J44.9 02/06/2022 Appointment: Jayna Vanessa WPtel: [phone] [phone] Annual Well Visit 02/06/2022 Care Plan: Annual depression screening, 15 minutes 02/06/2022 Visit Diagnosis Plan: 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 Patient declines- will get stat CT of the head, cbc, cmp, and ESR and fwup with results [facility] sample given ICD-9 : 346.03 ICD-10 : G43.111 02/01/2022 Appointment: ArabellahonorioLatasha camara WPtel: [phone] [phone] ACUTE ILLNESS 02/01/2022 Patient Education: Patient [...] : R19.7 11/29/2021 Appointment: Jayna Vanessa WPtel: [address] [place], [place] [phone] FOLLOW UP 11/29/2021 Visit Diagnosis Plan: Diarrhea Discussion: C Diff nega tive Treat with diflucan and Restora-RX Fwup 1 week ICD-9 : 787.91 ICD-10 : R19.7 11/22/2021 Visit Diagnosis Plan: Post-viral cough syndrome Discus joaquín: Change albuterol to Breztri 2p BID Add singulair 10mg po q HS ICD-9 : 786.2 ICD-10 : R05.8 11/22/2021 Appointment: Jayna Vanessa WPtel: [address] [place] [phone] ACUTE ILLNESS 11/22/2021 Patient Education: Singulair- OptimizeRX Coupon [id number] https://www.Cloud Theory.com/samplemd/resources/getResource/61/5j39poh7-7qdm-9393-7j Completed 11/22/2021 Visit Diagnosis Plan: Diarrhea of presumed infectious origin Discussion: Will check for c-diff due to recent antibiotics and foul smelling diarrhea ICD-9 : 009.3 ICD-10 : R19.7 11/21/2021 Visit Diagnosis Plan: History of recent pneumonia Disc ussion: Check cbc, cmp, ESR, and cxr now ICD-9 : V12.61 ICD-10 : Z87.01 11/21/2021 Appointment: Latasha Anand WPtel: [phone] [phone] ACUTE ILLNESS 11/21/2021 Patient Education: Patient Medication Summary Completed 11/21/2021 Visit Diagnosis Plan: Pneumonia Discussion: Finish all abx and continue albuterol Fwup next week ICD-9 : 486 ICD-10 : J18.9 11/09/2021 Visit Diagnosis Plan: Serous otitis media Discussion: Kenalog 40mg with Dexamethasone 2mg IM now ICD-9 : 381.4 ICD-10 : H65.90 11/09/2021 Appointment: Jayna Vanessa WPtel: [address] [place], [place] [phone] Hospital Follow Up 11/09/2021 Visit Diagnosis Plan: Pneumonia Discussion: Admit to h ospital ICD-9 : 486 ICD-10 : J18.9 10/31/2021 Appointment: Jayna Vanessa WPtel: [address] [place], [place] [phone] FOLLOW UP 10/31/2021 Visit Diagnosis Plan: Nausea [...] e prn 10/30/2021 Appointment: Jayna Vanessa WPtel: [address] [place], [place] [phone] ACUTE ILLNESS 10/30/2021 Visit Diagnosis Plan: Cervicalgia Discussion: Had x-ra ys done Kenalog 40mg IM now Baclofen prn Mobic for 1 week Topical muscle rube Moist heat and stretches shown Has PT sessions scheduled next week so will add in therapy for neck ICD-9 : 723.1 ICD-10 : M54.2 09/05/2021 Appointment: Jayna Vanessa WPtel: [phone] [facility] R[facility]ngdabm[place] ACUTE ILLNESS 09/05/2021 Visit Diagnosis Plan: Arthritis [...] 08/24/2021 Appointment: Latasha [facility]and WPtel: [phone] [facility] AC[facility] I[facility] 08/24/2021 Patient Education: Patient Medication Summary Completed 08/24/2021 Patient Education: prednisone- OptimizeRX Coupon [id number] Completed 08/24/2021 Visit Plan: Supportive care. Rest, [...] : 465.9 ICD-10 : J06.9 07/04/2021 Appointment: RosasLatasha camara WPtel: [phone] [phone] US ACUTE ILLNESS 07/04/2021 Patient Education: Patient Medication Summary Completed 07/04/2021 Patient Education: Patient Medication Summary Completed 07/04/2021 Appointment: RosasLatasha camara WPtel: [phone] [phone] US NO SHOW 07/03/2021 Appointment: Kika Latasha WPtel: [phone] [phone] US patients issue resolved so moved to 's schedule for his hospital fwup (km) CANCELED 03/29/2021 Appointment: Jyana Vanessa WPtel: [phone] [phone] US INJECTION 03/29/2021 Visit Diagnosis Plan: Vasovagal episode Discussion: Mo nitored in office. Stable, feeling better- sent to [facility] for 1L NS IV, cbc, and cmp. ICD-9 : 780.2 ICD-10 : R55 03/01/2021 Patient Education: Patient Medication Summary Completed 03/01/2021 Visit Diagnosis Plan: Sebaceous cyst of right axilla D iscussion: Pustule/cyst drained- see note. F/U for concerns. ICD-9 : 706.2 ICD-10 : L72.3 02/08/2021 Appointment: Latasha Anand WPtel: [phone] [phone] US ACUTE ILLNESS 02/08/2021 Patient Education: Patient Medication Summary Completed 02/08/2021 Visit Diagnosis Plan: Contact dermatitis Discussion: T opical TAC and prednisone Notify if persists or worsens ICD-9 : 692.9 ICD-10 : L25.9 01/19/2021 Appointment: Jayna Vanessa WPtel: [phone] [phone] ACUTE ILLNESS 01/19/2021 Patient Education: prednisone- OptimizeRX Coupon [id number] Completed 01/19/2021 Patient Education: triamcinolone acetonide- OptimizeRX Coupon [id number] Completed 01/19/2021 Visit Diagnosis Plan: Hypothyroidism, unspecified Disc ussion: Increase levothyroxine to 150mcg po daily and recheck TSH and free T4 in 2mos ICD-9 : 244.9 ICD-10 : E03.9 01/03/2021 Visit Diagnosis Plan: Essential (primary) hypertension Discussion: Stable ICD-9 : 401.9 ICD-10 : I10 01/03/2021 Visit Diagnosis Plan: Encounter for [facility] adult medical examination without abnormal findings Discussion: Mediterranean diet Combinati on of cardio and weight bearing exercise Had Tro[place] vaccines Lab discussed ICD-9 : V70.9 ICD-10 : Z00.00 01/03/2021 Visit Diagnosis Plan: Chronic obstructive pulmonary di sease, unspecified Discussion: Following with pulmonology ICD-9 : 496 ICD-10 : J44.9 01/03/2021 Appointment: Jayna Vanessa WPtel: [phone] [phone] Annual Well Visit 01/03/2021 Patient Education: levothyroxine- OptimizeRX Coupon [id number] https://www.Cloud Theory.MediSafe Project/samplemd/resources/getResource/61/6h790dg6-8ou7-1438-b9 Completed 01/03/2021 Visit Diagnosis Plan: COPD exacerbation Discussion: Sa jorge a given. Prednisone 40 mg x 5 days for exacerbation- increased cough, shortness of breath, and phlegm. Promethazine DM cough syrup sent d/t frequent hacking cough that interrupts sleep. F/U for no improvement or any concerns. ICD-9 : 491.21 ICD-10 : J44.1 11/29/2020 Appointment: Latasha Anand WPtel: [phone] [facility] [facility] 11/29/2020 Patient Education: Patient Medication Summary Completed 11/29/2020 Patient Education: prednisone- OptimizeRX Coupon [id number] Completed 11/29/2020 Patient Education: promethazine-DM- OptimizeRX Coupon [id number] Completed 11/29/2020 Visit Diagnosis Plan: Sinusitis Discussion: Will start doxycycline (pcn allergy). Sinus rinses. Tylenol/nsaids for headache/pain. Return to clinicif not improving/concerns. ICD-9 : 473.9 ICD-10 : J32.9 09/29/2020 Appointment: Latasha Anand WPtel: [phone] [facility] ACUTE ILLNESS 09/29/2020 Patient Education: Patient Medication Summary Completed 09/29/2020 Patient Education: doxycycline hyclate- OptimizeRX Coupon [id number] Completed 09/29/2020 Visit Diagnosis Plan: Other [...] J42 09/19/2020 Appointment: Latasha Anand WPtel: [phone] [phone] ACUTE ILLNESS 09/19/2020 Patient Education: Patient Medication Summary Completed 09/19/2020 Patient Education: ProAir HFA- OptimizeRX Coupon [id number] Completed 09/19/2020 Visit Diagnosis Plan: Right-sided tinnitus [...] : H93.11 08/10/2020 Appointment: Jayna Vanessa WPtel: [address] [place], [place] [phone] FOLLOW UP 08/10/2020 Patient Education: neomycin-polymyxin B-dexameth- Opti mizeRX Coupon [id number] https://www.Judobaby/Cloud Theory/resources/getResouriCreate/61/xk680f71-w07b-0t72-zp Completed 08/10/2020 Visit Diagnosis Plan: Dysfunction of right eustachian tube Discussion: Doxy.sd video visit done Increase zyrtec to BID Increase flonase to BID Add prednisone To office at end of week to assess otoscope exam if persists ICD-9 : 381.81 ICD-10 : H69.81 08/01/2020 Appointment: Jayna Vanessa WPtel: [address] [place], [place] [phone] TELEMEDICINE 08/01/2020 Patient Education: prednisone- OptimizeRX Coupon [phone] https://www.Judobaby/Cloud Theory/resources/getResource/61/pt1v71g9-2029-9k3i-09 Completed 08/01/2020 Visit Diagnosis Plan: Pyelonephritis Discussion: Finis h all abx Push fluids Check lab and repeat UA in 5 days--CBC, CMP, ESR ICD-9 : 590.80 ICD-10 : N12 07/13/2020 Appointment: Jayna Vanessa WPtel: [address] [place], [place] [phone] Hospital Follow Up 07/13/2020 Visit Diagnosis Plan: Acute gastroenteritis Discussion : Telephone visit completed Clear liquid diet next 24-48hrs Flagyl to cover for colitis/diverticulitis Zofran prn Notify or to ER if worsening ICD-9 : 558.9 ICD-10 : K52.9 07/05/2020 Appointment: Jayna Vanessa WPtel: [address] [place], [place] [phone] TELEMEDICINE 07/05/2020 Patient Education: ondansetron HCl- OptimizeRX Coupon [id number] https://www.Judobaby/samplemd/resources/getResource/61/x0c74gd0-8g5y-767c-7z Completed 07/05/2020 Visit Diagnosis Plan: Metabolic syndrome Discussion: U pdate CMP, HBa1c ICD-9 : 277.7 ICD-10 : E88.81 06/22/2020 Visit Diagnosis Plan: Qdbmb-1-weptzxernkx deficiency D iscussion: Following with pulmonology ICD-9 [...] : I10 06/22/2020 Appointment: Jayna Vanessa WPtel: [address] [place] [address] FOLLOW UP 06/22/2020 Visit Diagnosis Plan: Urinary tract infection Discussi on: Macrobid Diflucan Push water Notify if worsens ICD-9 : 599.0 ICD-10 : N39.0 05/17/2020 Appointment: Jayna Vanessa WPtel: [address] [place], [place] [phone] ACUTE ILLNESS 05/17/2020 Patient Education: fluconazole- OptimizeRX Coupon [id number] https://www.Judobaby/samplemd/resources/getResource/61/4q4eg5wj-i4z3-9d4w-1p Completed 05/17/2020 Visit Diagnosis Plan: Right pulmonary embolus Discussi on: Continue eliquis at 5mg po BID Has appointments pending with pulmonology and hematology Fwup after visits with both of these specialists ICD-9 : 415.19 ICD-10 : I26.99 03/14/2020 Appointment: Jayna Vanessa WPtel: [address] [place], [place] [phone] [facility] 03/14/20 on cell -- home phone had busy signal Hospital Follow Up 03/14/2020 Appointment: Jayna Vanessa WPtel: [address] [place], [place] [phone] I schedule patient by mistake ddo Scheduled [...] : R06.00 03/07/2020 Appointment: Jayna Vanessa WPtel: [address] [place], [place] [phone] ACUTE ILLNESS 03/07/2020 Care Plan: CT THORAX W/DYE LOINC : 08204 -6 Pending 03/07/2020 Appointment: Jayna Vanessa WPtel: [address] [place], [place] [phone] NO SHOW - FORGIVEN 03/02/2020 Visit Diagnosis Plan: Upper respiratory infection Disc ussion: patient's covid test was neg from several weeks ago. proair refilled to take as needed. medrol pack prescribed to cover for allergies since her symptoms began after being in [facility]. however, instructed patient that she needs to be checked again for coronavirus due to severity of her symptoms. patient [place] near [place] so informed her to go to [facility] in for testing. call ofice with new or worsening symptoms, otherwise push fluids. ICD-9 : 465.9 ICD-10 : J06.9 02/11/2020 Appointment: Genesis Fernández [address] TELEMEDICINE 02/11/2020 Patient Education: ProAir HFA- OptimizeRX Coupon [id number] Completed 02/11/2020 Patient Education: Medrol (Isaiah)- OptimizeRX Coupon [id number] Completed 02/11/2020 Visit Diagnosis Plan: Hypothyroidism, unspecified [...] Visit Diagnosis Plan: Encounter for [facility] adult medical examination without abnormal findings Discussion: Mediterranean diet Combinati on of cardio and weight bearing exercise Lab discussed Last colonoscopy 3 years ago ICD-9 : V70.9 ICD-10 : Z00.00 12/21/2019 Appointment: Jayna Vanessa WPtel: [phone] [phone] Annual Well Visit 12/21/2019 Care Plan: Referral Order SNOMED-CT : [id number] Pending 12/21/2019 Visit Diagnosis Plan: Dermatitis Discussion: Doxy.me v ideo visit done Cover with Prednisone taper Use Zyrtec 10mg po q AM BID ICD-9 : 692.9 ICD-10 : L30.9 09/29/2019 Appointment: Jayna Vanessa WPtel: [phone] [facility] [facility]IC[facility] 09/29/2019 Patient Education: prednisone- OptimizeRX Coupon [id number] https://www.Cloud Theory.MediSafe Project/samplemd/resources/getResource/61/56q40w29-7e52-3a68-8a Completed 09/29/2019 Visit Diagnosis Plan: Bone spur [...] : N39.0 09/14/2019 Appointment: Jayna Vanessa WPtel: [address] [place], [place] [phone] TELEMEDICINE 09/14/2019 Appointment: Jayna Vanessa WPtel: [phone] [phone] US LAB 09/11/2019 Appointment: Jayna Vanessa WPtel: [address] [place], [place] [phone] 09/09/2019 1210--per Ally patient was to only have 1 injection, reculture urine on 09/11/19 (km) CANCELED 09/09/2019 Appointment: Jayna Vanessa WPtel: [address] [place], [place] [phone] US INJECTION 09/08/2019 Appointment: Jayna Vanessa WPtel: [address] [place], [place] [phone] US INJECTION 09/07/2019 Visit Diagnosis Plan: Urinary [...] ICD-10 : R35.0 09/02/2019 Appointment: Genesis Fernández [address] [place] [address] ACUTE ILLNESS 09/02/2019 Visit Diagnosis Plan: Sinusitis Discussion: instructed to start flonase daily and zyrtec daily. if no improvement next week, call clinic and may need further directions. instructed to use saline eye drops as needed to eyes to assist with dryness. ICD-9 : 473.9 ICD-10 : J32.9 07/09/2019 Appointment: Genesis Fernández [address] [place] [address] ACUTE ILLNESS 07/09/2019 Visit Diagnosis Plan: UTI (urinary tract infection) Di scussion: urine culture sent off. will start on macrobid due to symptoms. instructed to push fluids and chemo tomorrow with worsening symptoms. ICD-9 : 599.0 ICD-10 : N39.0 04/15/2019 Appointment: Jayna Vanessa WPtel: [phone] [phone] US INJECTION 04/15/2019 Appointment: Genesis Fernández [address] [place] [address] ACUTE ILLNESS 04/15/2019 Visit Diagnosis Plan: Pain in right leg Discussion: ke nalog/dexa given in office. continue with flexeril prn. PT was ordered for patient due to chronic issues. call office with worsening symptoms and may need imaging. ICD-9 : 729.5 ICD-10 : M79.604 04/07/2019 Appointment: Genesis Fernández [address] [place], [place] [phone] ACUTE ILLNESS 04/07/2019 Visit Diagnosis Plan: Diverticulitis of large intestine without perforation or abscess without bleeding Discussion: Patient will call when she g ets home and verify which antibiotics she has left--needs at least another week on flagyl and thinks she only took 1 week on that ICD-9 : 562.11 ICD-10 : K57.32 03/25/2019 Appointment: Jayna Vanessa WPtel: [address] [phone] FOLLOW UP 03/25/2019 Visit Diagnosis Plan: Cystitis Discussion: Bactrim and culture urine ICD-9 : 595.9 ICD-10 : N30.90 03/18/2019 Visit Diagnosis Plan: Abdominal pain Discussion: Cover with flagyl for colitis [place] diet To ER this weekend if worsening Fwup 1 week ICD-9 : 789.00 ICD-10 : R10.9 03/18/2019 Appointment: Jayna Vanessa WPtel: [facility] [address] ACUTE ILLNESS 03/18/2019 Visit Diagnosis Plan: [...] due to recurrent issues. last one was 2016. ICD-9 : 789.07 ICD-10 : R10.84 01/26/2019 Appointment: Genesis Fernández [address] [place] [address] ACUTE ILLNESS 01/26/2019 Appointment: Jayna Vanessa WPtel: [address] [place], [place] [phone] US CANCELED 01/12/2019 Visit Diagnosis Plan: Mild intermittent asthma with (a cute) exacerbation Discussion: Kenalog 40mg IM now Prednisone stating tomorrow Start Doxycycline tonight Continue SVNs with duoneb q4hrs To ER this if worsening Call Saturday on how doing ICD-9 : 466.0 ICD-10 : J45.21 01/08/2019 Appointment: Jayna Vanessa WPtel: [facility] [place] [phone] FOLLOW UP 01/08/2019 Patient Education: prednisone- OptimizeRX Coupon [phone] https://www.Cloud Theory.MediSafe Project/Cloud Theory/resources/getResource/61/06481112-s9na-2135-25 Completed 01/08/2019 Visit Diagnosis Plan: Mild intermittent asthma with (a cute) exacerbation Discussion: Solumedrol 125mg IM SVN with duoneb given Continue albuterol q4hrs CXR now Recheck tomorrow ICD-9 : 466.0 ICD-10 : J45.21 01/06/2019 Appointment: Jayna Vanessa WPtel: [phone] [facility] ACUTE ILLNESS 01/06/2019 Visit Diagnosis Plan: Encounter [...] ICD-10 : N76.0 12/11/2018 Appointment: Genesis Fernández [address] [place], [place] [phone] Annual Well Visit 12/11/2018 Care Plan: RML ASSAY THYROID STIM HORMONE Pending 12/04/2018 Care Plan: RML ASSAY OF FREE THYROXINE Pe nding 12/04/2018 Care Plan: RML A1C HPLC LOINC : 01687-3 Pending 12/04/2018 Care Plan: RML LIPID PANEL LOINC : 68528 -1 Pending 12/04/2018 Care Plan: RML COMPREHEN METABOLIC PANEL LOINC : 21076-6 Pending 12/04/2018 Care Plan: QUEST CBC (INCLUDES DIFF/PLT) LOINC : 51680-6 Pending 12/04/2018 Visit Diagnosis Plan: Benign paroxysmal vertigo, bilat eral Discussion: Meclizine Vestibular Exercises To ER if worsens or develops neurological symptoms or will need CT scan if persists/worsens ICD-9 : 386.11 ICD-10 : H81.13 10/30/2018 Appointment: Jayna Vanessa WPtel: [phone] ACUTE ILLNESS 10/30/2018 Patient Education: VESTIBULAR EXCERCISES Completed 10/30/2018 Patient Education: meclizine- OptimizeRX Coupon [id number] Completed 10/30/2018 Appointment: Jayna Vanessa WPtel: [address] US canceled due to huband going into [...] J20.9 10/07/2018 Visit Diagnosis Plan: Cough Discussion: Tesdiana bae s- as needed for cough ICD-9 : 786.2 ICD-10 : R05 10/07/2018 Appointment: Stacey Feng [address] [place] [address] ACUTE ILLNESS 10/07/2018 Patient Education: doxycycline hyclate- OptimizeRX Cou jerald [id number] https://www.Cloud Theory.com/samplemd/resources/getResource/61/h117ewb2-y640-614b-60 Completed 10/07/2018 Care Plan: RML ASSAY OF [...] : M85.80 06/23/2018 Appointment: Jayna Vanessa WPtel: [address] [place] [address] FOLLOW UP 06/23/2018 Appointment: Jayna Vanessa WPtel: [address] [place], [place] [phone] US ER Follow UP 01/27/2018 Visit Diagnosis Plan: Hypothyroidism, unspecified Disc ussion: Lab discussed Increase Levothyroxine to 175mcg daily then recheck level in 6 weeks Follow Up: 6 weeks ICD-9 : 244.9 ICD-10 : E03.9 01/16/2018 Visit Diagnosis Plan: Mixed hyperlipidemia Discussion: Defers statin meds ICD-9 : 272.4 ICD-10 : E78.2 01/16/2018 Appointment: Jayna Vanessa WPtel: [address] [place], [place] [address] US FOLLOW UP 01/16/2018 Patient Education: Patient Medication Summary Completed 01/16/2018 Patient Education: Patient Medication Summary Completed 01/15/2018 Care Plan: RML COMPREHEN METABOLIC PANEL LOINC : 69117-8 Pending 01/15/2018 Care Plan: RML ASSAY THYROID STIM HORMONE Pending 01/15/2018 Care Plan: RML ASSAY OF FREE THYROXINE Pe nding 01/15/2018 Care Plan: RML LIPID PANEL LOINC : 53544 -1 Pending 01/15/2018 Care Plan: CBC Pending 01/15/2018 Care Plan: RML A1C HPLC LOINC : 89929-9 Pending 01/15/2018 Appointment: Jayna Vanessa WPtel: [phone] US CANCELED 12/26/2017 Appointment: Jayna Vanessa WPtel: [address] [phone] US CANCELED 10/28/2017 Visit Diagnosis Plan: Cervicalgia Discussion: xray ord ered of cervical spine and right shoulder. 40 mg kenalog/15 mg toradol prescribed to assist with pain. medrol dose pack prescribed to start tomorrow. instructed patient that if she d evelops worsening pain or no improvement, call or rtc. ICD-9 : 723.1 ICD-10 : M54.2 10/16/2017 Appointment: Genesis Fernández [address] [place] [address] ACUTE ILLNESS 10/16/2017 Patient Education: Patient Medication Summary Completed 10/16/2017 Care Plan: X-RAY EXAM NECK SPINE 4/5VWS cervical LOINC : 04536-6 Pending 10/16/2017 Visit Diagnosis Plan: Headache Discussion: Stat CT of head Dilated eye exam ICD-9 : 784.0 ICD-10 : R51 09/12/2017 Visit Diagnosis Plan: Dizziness and giddiness Discussi on: Check CBC,TSH, Free T4 now ICD-9 : 780.4 ICD-10 : R42 09/12/2017 Appointment: Jayna Vanessa WPtel: [address] [phone] ACUTE ILLNESS 09/12/2017 Patient Education: Patient Medication Summary Completed 09/12/2017 Care Plan: CT HEAD/BRAIN W/O DYE LOINC : 47817-4 Pending 09/12/2017 Visit Diagnosis Plan: Cough Discussion: discussed cxra y and sputum results with patient and how they are negative for bacteria. patient restarted on her PPI to cover possiblity of GERD causing cough. instructed patient to contact her cyber special agent in [place] for them to evaluate. rtc with any new or worsening symptoms but continue with inhaler and nebulizer treatments as needed. ICD-9 : 786.2 ICD-10 : R05 08/20/2017 Appointment: Genesis Fernández [address] [facility] FOLLOW UP 08/20/2017 Patient Education: Patient Medication Summary Completed 08/20/2017 Visit Diagnosis Plan: COUGH Discussion: Check stat CXR Check Sputum culture ICD-9 : 786.2 ICD-10 : R05 08/13/2017 Appointment: Jayna Vanessa WPtel: [facility] ACUTE ILLNESS 08/13/2017 Patient Education: Patient Medication [...] Rest, Fluids... 07/29/2017 Appointment: Jayna Vanessa WPtel: [phone] [phone] ACUTE ILLNESS 07/29/2017 Patient Education: Patient Medication [...] ICD-10 : J09.X2 07/25/2017 Appointment: Genesis Fernández [address] [place] [address] ACUTE ILLNESS 07/25/2017 Patient Education: Patient Medication [...] : M25.50 06/10/2017 Appointment: Jayna Vanessa WPtel: [address] [phone] ACUTE ILLNESS 06/10/2017 Patient Education: Patient Medication Summary Completed 06/10/2017 Appointment: Jayna Vanessa WPtel: [address] [place], [place] [phone] Does not need appointment CANCELED 2016 Appointment: Jayna Vanessa WPtel: [facility]6 [phone] US CANCELED 05/30/2017 Visit Diagnosis Plan: Acute bronchitis, unspecified Di scussion: prednisone, zpack and tessalon perles prescribed to assist with symptoms. call or RTC if no improvement. humidifier at night. hydrate well and rest. discussed side effects from prednisone including increased blood sugars and instructed to monitor. ICD-9 : 490 ICD-10 : J20.9 05/28/2017 Appointment: Genesis Fernández [address] [place] [address] ACUTE ILLNESS 05/28/2017 Patient Education: Patient Medication Summary Completed 05/28/2017 Visit Diagnosis Plan: Type 2 diabetes mellitus without complications Discussion: Continue current meds accuchecks daily ICD-9 : 250.00 ICD-10 : E11.9 04/04/2017 Visit Diagnosis Plan: Encounter for [facility] medical examination without abnormal findings Discussion: Flu and Pneumovax given Mamm ogram ordered Lab discussed ICD-9 : V70.9 ICD-10 : Z00.00 04/04/2017 Appointment: Jayna Vanessa WPtel: [facility]2 [phone] Annual Well Visit 04/04/2017 Patient Education: Patient Medication Summary Completed 04/04/2017 Care Plan: MAMMOGRAM SCREENING LOINC : 2 6347-5 Pending 04/04/2017 Patient Education: Patient Medication Summary Completed 03/21/2017 Care Plan: RML COMPREHEN METABOLIC PANEL LOINC : 81295-9 Pending 03/21/2017 Care Plan: RML ASSAY THYROID STIM HORMONE Pending 03/21/2017 Care Plan: RML ASSAY OF FREE THYROXINE Pe nding 03/21/2017 Care Plan: CBC Pending 03/21/2017 Care Plan: RML A1C HPLC LOINC : 28219-5 Pending 03/21/2017 Visit Diagnosis Plan: Mixed hyperlipidemia Discussion: Continue current meds Follow Up: 6 months ICD-9 : 272.4 ICD-10 : E78.2 11/28/2016 Visit Diagnosis Plan: Hypothyroidism, unspecified Disc ussion: Continue current dose ICD-9 : 244.9 ICD-10 : E03.9 11/28/2016 Visit Diagnosis Plan: Vqnjr-[id number] deficiency D iscussion: Continue weekly injections ICD-9 : 273.4 ICD-10 : E88.01 11/28/2016 Visit Diagnosis Plan: Sebaceous cyst Discussion: Emily swann Discussed removal ICD-9 : 706.2 ICD-10 : L72.3 11/28/2016 Appointment: Jayna Vanessa WPtel: [address] [place], [place] [phone] 11/27 rang and rang on home phone and mobile confirmed~sl FOLLOW UP 11/28/2016 Patient Education: Patient Medication Summary Completed 11/28/2016 Patient Education: Patient Medication Summary Completed 11/20/2016 Referral: Tom Mcrae WPtel: [address] [place], [place] [phone] Referral Initiated 07/05/2016 Visit Plan: Start with CT abdomen/pelvis Will need EGD and Colonoscopy so will refer to Dr. Pina Obtain most recent lab results 06/05/2016 Appointment: Jayna Vanessa WPtel: [address] [place], [place] [phone] ACUTE ILLNESS 06/05/2016 Patient Education: Patient Medication Summary Completed 06/05/2016 Care Plan: CT PELVIS W/O DYE LOINC : 361 08-9 Pending 06/05/2016 Care Plan: CT ABDOMEN W/O DYE LOINC : 36 103-0 Pending 06/05/2016 Care Plan: Referral Order SNOMED-CT : [phone] [id number] Pending 06/05/2016 Appointment: Jayna Vanessa WPtel: [address] [place], [place] [phone] US INJECTION 05/01/2016 Patient Education: Patient Medication Summary Completed 05/01/2016 Patient Education: Patient Medication Summary Completed 04/26/2016 Care Plan: RML COMPREHEN METABOLIC PANEL LOINC : 26712-9 Pending 04/26/2016 Care Plan: RML ASSAY THYROID STIM HORMONE Pending 04/26/2016 Care Plan: RML ASSAY OF FREE THYROXINE Pe nding 04/26/2016 Care Plan: RML A1C HPLC LOINC : 74125-1 Pending 04/26/2016 Referral: Aditya Stone WPtel: [address] [place] [address] [address] [id number] Arrival time is 10:00 Am~sl Appointment Confirme d 11/25/2015 Visit Plan: Had fasting lab done this AM Continue PT for right shoulder Continue current meds Referral to Dr. Temo Stone for incontinence 11/08/2015 Appointment: Jayna Vanessa WPtel: [address] [place], [place] [phone] 11/06 confirmed-sp FOLLOW UP 11/08/2015 Patient Education: Patient Medication Summary Completed 11/08/2015 Appointment: Jayna Vanessa WPtel: [address] [place], [place] [phone] 10/19 rescheduled ~sl RESCHEDULED 10/24/2015 Appointment: Jayna Vanessa WPtel: [address] [place], [place] [phone] 10/10rang and rang ~sl RESCHEDULED 6 Patient Education: Patient Medication Summary Completed 10/12/2015 Care Plan: RML COMPREHEN METABOLIC PANEL LOINC : 28634-7 Pending 10/12/2015 Care Plan: RML ASSAY THYROID STIM HORMONE Pending 10/12/2015 Care Plan: RML ASSAY OF FREE THYROXINE Pe nding 10/12/2015 Care Plan: RML LIPID PANEL LOINC : 91214 -1 Pending 10/12/2015 Care Plan: CBC Pending 10/12/2015 Care Plan: RML A1C HPLC LOINC : 54632-9 Pending 10/12/2015 Care Plan: VITAMIN D TOTAL (25 HYDROXY) P ending 10/12/2015 Appointment: Jayna Vanessa WPtel: [address] [place], [place] [phone] CANCELED 09/22/2015 Visit Plan: Lab discussed Change thyroid med back to brand synthroid and recheck thyroid lab in 3mos 07/19/2015 Appointment: Jayna Vanessa WPtel: [address] [place], [place] [phone] 07/18/15 appt confirmed cn FOLLOW UP 07/19 Patient Education: Patient Medication Summary Completed 07/19/2015 Patient Education: Patient Medication Summary Completed 07/12/2015 Visit Plan: Lab discussed Change synthro id to 150mcg all days but M, W, F will change to 175mcg Check Lab and fwup in 3mos Flu shot given 03/28/2015 Appointment: Jayna Vanessa WPtel: [address] [place], [place] [phone] 03/25 rang for 1:40 seconds 03/28/ appt confirmed cn FOLLOW UP 03/28/2015 Patient Education: Patient Medication Summary Completed 03/28/2015 Patient Education: Patient Medication Summary Completed 03/21/2015 Visit Plan: Continuue fluoxetine at high er dose Increase synthroid to 150mcg as ordered Decrease propranolol to 20mg po BID Check thyroid lab and fwup in 2mos Prevnar 13 given 02/08/2015 Appointment: Jayna Vanessa WPtel: [address] [place], [place] [phone] US FOLLOW UP 02/08/2015 Patient Education: Patient Medication Summary Completed 02/08/2015 Visit Plan: Check CBC, CMP, TSH, Free T4 , uric acid, lactate now Increase fluoxetine to 40mg daily Recheck in 1month Notify if worsening Culture urine 01/11/2015 Appointment: Jayna Vanessa WPtel: [address] [place], [place] [phone] ACUTE ILLNESS 01/11/2015 Patient Education: Patient Medication Summary Completed 01/11/2015 Visit Plan: Lab discussed Acchenrry epstein ly Medrol dose pack Rx for back brace 11/24/2014 Appointment: Jayna Vanessa WPtel: [address] [place], [place] [phone] / confirmed -mf FOLLOW UP 11/24/2014 Patient Education: Patient Medication Summary Completed 11/24/2014 Appointment: Galina Leos WPtel: [address] [place], [place] [phone] ER Follow UP 11/19/2014 Patient Education: Patient Medication Summary Completed 11/19/2014 Appointment: Conchita Capone WPtel: [address] [place] [address] ACUTE ILLNESS 10/27/2014 Patient Education: Patient Medication Summary Completed 10/27/2014 Patient Education: [facility] - Saving AutoInj - 18+ - Dynamic Portal ID Completed 10/27/2014 Appointment: Conchita Capone WPtel: [address] [place], [place] [phone] ACUTE ILLNESS 09/23/2014 Patient Education: Patient Medication Summary Completed 09/23/2014 Visit Plan: Lab discussed Continue curre nt meds 07/28/2014 Appointment: Jayna Vanessa WPtel: [address] [place], [place] [phone] 07/27 vm FOLLOW UP 07/28/2014 Patient Education: Patient Medication Summary Completed 07/28/2014 Patient Education: Patient Medication Summary Completed 07/21/2014 Patient Education: Patient Medication Summary Completed 04/27/2014 Appointment: Jayna Vanessa WPtel: [address] [place], [place] [phone] 03/29 vm FOLLOW UP 03/30/2014 Patient Education: Patient Medication Summary Completed 03/30/2014 Patient Education: [facility] - Saving AutoInj - 18+ - Dynamic Portal ID Completed 03/30/2014 Visit Plan: Lab discussed DC Vytorin Tri al of Lipitor 80mg q HS Continue Trilipix Check Lipids/CMP/thyroid and HbA1C in 4mos then fwup 11/24/2013 Appointment: Jayna Vanessatel: [address] [place], [place] [phone] FOLLOW UP 11/24/2013 Patient Education: Patient Medication Summary Completed 11/24/2013 Patient Education: [facility] - Saving AutoInj - 18+ - Dynamic Portal ID Completed 11/24/2013 Visit Plan: Lab discussed Daily accuchec ks Cont current meds 08/25/2013 Appointment: Jayna Vanessa WPtel: [address] [place], [place] [phone] 08/24 FOLLOW UP 08/25/2013 Patient Education: Patient Medication Summary Completed 08/25/2013 Appointment: Jayna Vanessa WPtel: [address] [place], [place] [phone] FOLLOW UP 08/05/2013 Visit Plan: Continue Wellbutrin/Fluoxeti ne Fasting lab and fwup in 2mos 06/29/2013 Appointment: Jayna Vanessatel: [address] [place], [place] [phone] 06/26 [facility] FOLLOW UP 06/29/2013 Patient Education: Patient Medication Summary Completed 06/29/2013 Visit Plan: Increase Wellbutrin to 300mg daily Add fluoxetine 20mg daily 05/26/2013 Appointment: Jayna Vanessa WPtel: [address] [place], [place] [phone] FOLLOW UP 05/26/2013 Patient Education: Patient Medication Summary Completed 05/26/2013 Visit Plan: OK to proceed with planned s ulder surgery next week Continue current meds Check fasting lab--CBC, CMP, TSH, free T4, HbA1C, Lipids, Vit D at end of this week prior to surgery 05/06/2013 Appointment: Jayna Vanessa WPtel: [address] [place], [place] [phone] FOLLOW UP 05/06/2013 Patient Education: Patient Medication Summary Completed 05/06/2013 Appointment: Jayna Vanessa WPtel: [address] [place], [place] [phone] [place] [address] ACUTE ILLNESS 04/23/2013 Patient Education: Patient Medication Summary Completed 04/23/2013 Patient Education: [facility] - Saving AutoInj - 18+ - Dynamic Portal ID Completed 04/23/2013 Visit Plan: Decrease Lasix to 20mg daily Leave potassium at 20meq daily Check Chem 7 in 1wk 03/31/2013 Appointment: Jayna Vanessa WPtel: [address] [place], [place] [phone] FOLLOW UP 03/31/2013 Patient Education: Patient Medication Summary Completed 03/31/2013 Appointment: Conchita Capone WPtel: [address] [place] [address] ACUTE ILLNESS 03/05/2013 Patient Education: Patient Medication Summary Completed 03/05/2013 Visit Plan: Lab discussed Continue curre nt meds Pt is going to start allergy injections Go for port placement to continue prolastin infusions 02/04/2013 Appointment: Jayna Vanessa WPtel: [address] [place], [place] [phone] ACUTE ILLNESS 02/04/2013 Patient Education: Patient Medication Summary Completed 02/04/2013 Visit Plan: 2-D ECHO discussed See Pulmo nology Pt states cough had went away with allergy meds and then has came back Continue allergy meds and add pepcid BID Discussed allergy testing 11/27/2012 Appointment: Jayna Vanessa WPtel: [facility]3 [phone] FOLLOW UP 11/27/2012 Patient Education: Patient Medication Summary Completed 11/27/2012 Visit Plan: PFTS discussed Proceed with 2-D ECHO and pulmonology evaluation Pt was concerned propranolol could be cause but discussed this is likely not culpri HOMERO was DCed in 2009, is on PPI, has seen ENT, will restart allergy meds--may need allergy testing 11/11/2012 Appointment: Jayna Vanessa WPtel: [address] [place], [place] [phone] FOLLOW UP 11/11/2012 Patient Education: Patient Medication Summary Completed 11/11/2012 Visit Plan: Hold metformin Check CMP, Li pids, TSH, Free T4, HbA1C Check PFTs 10/20/2012 Appointment: Jayna Vanessa WPtel: [address] [place], [place] [phone] 10/17 left message FOLLOW UP 10/20/2012 Patient Education: Patient Medication Summary Completed 10/20/2012 Appointment: Jayna Vanessa WPtel: [address] [place], [place] [phone] 10/13 FOLLOW UP 10/14/2012 Visit Plan: Discussed fluids and rest. W ill monitor for worsening symptoms/fever. Azithromycin, medrol dose pack and refil on cough syrup. Pt. will notify if symptoms worsen or persist. 09/03/2012 Appointment: Lizzie Kelly WPtel: [address] [place], [place] [phone] ACUTE ILLNESS 09/03/2012 Patient Education: Patient Medication Summary Completed 09/03/2012 Visit Plan: discussed that symptoms star edvin around Pope time. Will begin culturelle BID and monitor for fever or worsening symptoms. Fluid intake important. CBC, CMP, sed rate and stool studies. Order written for Mag lab. 07/23/2012 Appointment: Lizzie Kelly WPtel: [address] [place], [place] [phone] ACUTE ILLNESS 07/23/2012 Patient Education: Patient Medication Summary Completed 07/23/2012 Visit Plan: Increase Metformin to 1000mg po BID Accuchecks daily Continue rest of meds at current dose and low-fat, low-sugar diet with increased exercise Check fasting lab in 4mos Restart Nexium 05/20/2012 Appointment: Jayna Vanessa WPtel: [address] [place], [place] [phone] patient had bad night so missed 05/06 appt...left voicemail 05/19 FOLLOW UP 05/20/2012 Patient Education: Patient Medication Summary Completed 05/20/2012 Appointment: Jayna Vanessa WPtel: [phone] patient had bad night so missed 05/06 appt time. FOLLOW UP 05/06/2012 Appointment: Galina Leos WPtel: [address] [place], [place] [phone] ACUTE ILLNESS 04/04/2012 Patient Education: Patient Medication Summary Completed 04/04/2012 Visit Plan: Cryotherapy as above 02/20/2012 Appointment: Jayna Vanessa WPtel: [address] [place], [place] [phone] 02/18 OFFICE SURGERY 02/20/2012 Patient Education: Patient Medication Summary Completed 02/20/2012 Visit Plan: Increase Metfromin to 1000mg daily Continue all other current meds 01/02/2012 Appointment: Jayna Vanessa WPtel: [address] [place] [address] FOLLOW UP 01/02/2012 Patient Education: Patient Medication Summary Completed 01/02/2012 Appointment: Lizzie Kelly WPtel: [address] [place] [address] ACUTE ILLNESS 09/04/2011 Patient Education: Patient Medication Summary Completed 09/04/2011 Visit Plan: Finish Keflex Proceed with c olonoscopy Increase aspirin to 325mg daily for next 2wks Add Vimovo 20/500mg po Daily 08/14/2011 Appointment: Jayna Vanessa WPtel: [address] [place], [place] [phone] [facility] Follow Up 08/14/2011 Patient Education: Patient Medication Summary Completed 08/14/2011 Appointment: Lizzie Kelly WPtel: [address] [place], [place] [phone] ACUTE ILLNESS 07/31/2011 Patient Education: Patient Medication Summary Completed 07/31/2011 Visit Plan: Doxy and steroids. Codeine/g uiaf cough syrup. Pt. will monitor for worsening symptoms and notify if fever occurs. Encouraged rest and fluids. 07/25/2011 Appointment: Lizzie Kelly WPtel: [address] [place] [address] ACUTE ILLNESS 07/25/2011 Patient Education: Patient Medication Summary Completed 07/25/2011 Visit Plan: Check full lab in 3mos Radha nue with all current meds Continue PT for knee 07/12/2011 Appointment: Jayna Vanessa WPtel: [address] [place], [place] [phone] FOLLOW UP 07/12/2011 Patient Education: Patient Medication Summary Completed 07/12/2011 Visit Plan: Continue symbicort for 2 mor e weeks 05/09/2011 Appointment: Jayna Vanessa WPtel: [address] [place], [place] [phone] FOLLOW UP 05/09/2011 Patient Education: Patient Medication Summary Completed 05/09/2011 Appointment: Jayna Vanessa WPtel: [address] [place], [place] [phone] ER Follow UP 05/02/2011 Patient Education: Patient Medication Summary Completed 05/02/2011 Visit Plan: Pt. has recently finished ro und of Cefdinir with no improvement. Chest x-ray, CBC, CMP and mycoplasma order given to pt. Pt. will start Doxycycline. 04/25/2011 Appointment: Lizzie Kelly WPtel: [address] [place] [address] FOLLOW UP 04/25/2011 Patient Education: Patient Medication Summary Completed 04/25/2011 Appointment: Lizzie Kelly WPtel: [address] [place], [place] [phone] ACUTE ILLNESS 04/04/2011 Patient Education: Patient Medication Summary Completed 04/04/2011 Appointment: Lizzie Kelly WPtel: [address] [place], [place] [phone] ACUTE ILLNESS 04/03/2011 Visit Plan: Decrease Synthroid to 150mcg daily Repeat TSH and Free T4 in 2mos Knee injection as above 03/01/2011 Appointment: Jayna Vanessa WPtel: [address] [place], [place] [phone] 03/01/2011 Patient Education: Patient Medication Summary Completed 03/01/2011 Visit Plan: Increase Synthroid to 175mcg po daily Check TSH, Free T4 in 8wks Injection given to knee as above Continue Pt 01/04/2011 Appointment: Jayna Vanessa WPtel: [address] [place], [place] [phone] FOLLOW UP 01/04/2011 Patient Education: Patient Medication Summary Completed 01/04/2011 Visit Plan: Septra DS, Mupirocin topical . Pt. will observe wound and report worsening symptoms. 12/07/2010 Appointment: Lizzie Kelly WPtel: [address] [place], [place] [phone] ACUTE ILLNESS 12/07/2010 Patient Education: Patient Medication Summary Completed 12/07/2010 Visit Plan: Increase Synthroid to 150mcg po daily Add Metformin Diet and exercise discussed at length again Repeat thyroid US Add Vit D level Will see if polydipsia improves with metformin 10/09/2010 Appointment: Jayna Vanessa WPtel: [address] [place], [place] [phone] FOLLOW UP 10/09/2010 Patient Education: Patient Medication Summary Completed 10/09/2010 Visit Plan: Increase Synthroid to 125mcg daily Decrease Vit D 50,000 u three times a week Discussed HRT Proceed with sleep study Fwup pending sleep study results 08/07/2010 Appointment: Jayna Vanessa WPtel: [address] [place], [place] [phone] FOLLOW UP 08/07/2010 Patient Education: Patient Medication Summary Completed 08/07/2010 Visit Plan: Decrease Synthroid to 100mcg QD Check thyroid lab in 2mos Check estradiol levels in 2mos--discussed HRT Increase Vit D 50,000u to 1 daily M-F 06/06/2010 Appointment: Jayna Vanessatel: [address] [place], [place] [phone] ACUTE ILLNESS 06/06/2010 Patient Education: Patient Medication Summary Completed 06/06/2010 Visit Plan: Injections to knees as above 04/12/2010 Appointment: Jayna Vanessa WPtel: [address] [place], [place] [phone] OFFICE SURGERY 04/12/2010 Patient Education: Patient Medication Summary Completed 04/12/2010 Visit Plan: Decrease Synthroid to 175mcg QD Check lab in 2mos Change daily Vit D to weekly 03/20/2010 Appointment: Jayna Vanessa WPtel: [address] [place], [place] [phone] ESTABLISHED PATIENT 03/20/2010 Patient Education: Patient Medication Summary Completed 03/20/2010 Appointment: Jayna Vanessa WPtel: [address] [place], [place] [address] ACUTE ILLNESS 01/30/2010 Patient Education: Patient Medication Summary Completed 01/30/2010 Appointment: Jayna Vanessa WPtel: [address] [place], [place] [phone] ACUTE ILLNESS 01/09/2010 Patient Education: Patient Medication Summary Completed 01/09/2010 Appointment: Jayna Vanessa WPtel: [address] [place], [place] [phone] BP CHECK 11/07/2009 Patient Education: Patient Medication Summary Completed 11/07/2009 Appointment: Jayna Vanessa WPtel: [address] [place], [place] [phone] US OFFICE SURGERY 10/26/2009 Patient Education: Patient Medication Summary Completed 10/26/2009 Appointment: Lizzie Kelly WPtel: [address] [place], [place] [phone] OFFICE SURGERY 10/17/2009 Patient Education: Patient Medication [...] up appnt. 10/04/2009 Appointment: Lizzie Kelly WPtel: [address] [place], [place] [phone] ACUTE ILLNESS 10/04/2009 Patient Education: Patient Medication Summary Completed 10/04/2009 Visit Plan: E-scribed refils. Pt. report s that she normally has lab work drawn and orders are given (faxed) to her normal lab facility by Patricia. Pt. states her migraine headaches have abated for now and that she is going to see her migraine doctor in [place] in the near future(Dr Cook) Pt will seek re-eval as necessary for acute issues. 09/21/2009 Appointment: Lizzie Kelly WPtel: [address] [place], [place] [phone] [place] CHECK UP 09/21/2009 Patient Education: Patient Medication Summary Completed 09/21/2009 Appointment: Lizzie Kelly WPtel: [phone] [facility] US CHECK UP 09/20/2009 Appointment: Lizzie Kelly WPtel: [address] [place], [place] [phone] [place] FOLLOW UP 09/19/2009 Referral: Alf Lang WPtel: #[address] [facility] [place] Referral Appointment Requested Referral: Singh Pina WPtel: [address] [id number] [place] Referral Appointment Requested Referral: Aditya Stone WPtel: [address] [id number] [place] Referral Appointment Requested Instructions Comment Date [...] going to see her migraine doctor in [place] in the near future(Dr Cook) Pt will [...]
--- OUTSIDE RECORDS SUMMARY | 2022-09-10 17:06 | XMS REPORT | CCD ---
Author Author Marcella Vanessa D.O. 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 Name Role Phone Jayna Vanessa D.O., PP Unavailable CCM Unavailable Summary Purpose Interface Exchange Insurance Providers Payer name Policy type / Coverage type Covered green party ID Effective Begin Date Effective End Date [employer] Commercial Insurance [id number] Unknown Commercial Insurance [id number] Unknown Family history Side Diagnosis Age At Onset Heart disease Unknown Diabetes Unknown Sister Diagnosis Age At Onset Diabetes Unknown Brother Diagnosis Age At Onset Diabetes Unknown Mother Diagnosis Age At Onset Heart disease Unknown Father Diagnosis Age At Onset Heart disease Unknown Social History Social History Element Codes Description Effective Dates Tobacco history SNOMED CT: 275475328 Never smoker 04/04/2011 Marital status Unknown 09/21/2009 [...] gastroenteritis ICD-10: K52.9 ICD-9: 558.9 07/05/2020 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 11/28/2016 Active [...] ANXIETY STATE NOS ICD-9: 300.00 03/05/2013 Active Psqgo-2-omsofzktxke 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 02/04/2013 A ctive DYSPNEA [...] 24 hr tablet, extended release RxNor m: 017691 TAKE 1 Tablet BY MOUTH DAILY IN THE MORNING (replaces 150mg DOSE) 08/29/2022 02/24/2023 Active levothyroxine 150 mcg tablet RxNorm: 967342 TAKE ONE TA BLET BY MOUTH EVERY IN THE MORNING 08/29/2022 02/24/2023 Active ciprofloxacin 250 mg tablet RxNorm: 560699 Take 1 Tablet(s) Ora l Q12H 06/29/2022 07/03/2022 Inactive levothyroxine 150 mcg tablet RxNorm: 355151 Take 1 Tablet(s) Or al QAM 06/03/2022 06/03/2022 Inactive Wellbutrin XL 300 mg 24 hr tablet, extended release RxNorm: 363898 Take 1 Tablet(s) Oral QAM replaces 150mg dose 05/28/2022 05/28/2022 Inactive Xyzal 5 mg tablet RxNorm: 862494 Take 1 Tablet(s) Oral QPM 05/10/2010/06/2022 Active Claritin 10 mg tablet RxNorm: 240431 Take 1 Tablet(s) Oral QAM 04/2409/06/2022 Active Flonase Allergy Relief 50 mcg/actuation nasal spray,suspensi on RxNorm: 5677479 Take 1 [place]ain Nasal two times a day 05/10/2022 06/08/2022 Inactive Wellbutrin XL 150 mg 24 hr tablet, extended release RxNorm: 756562 Take 1 Tablet(s) Oral QAM 05/10/2022 05/27/2022 Inactive sumatriptan 100 mg tablet RxNorm: 314196 1 Tablet(s) Or al after onset of migraine; may repeat after 2 hours if headache returns, not to exceed 200mg in 24hrs replaces rizatriptan 04/19/2022 04/19/2022 Inactive sumatriptan 100 mg tablet RxNorm: 852167 1 Tablet(s) Or al after onset of migraine; may repeat after 2 hours if headache returns, not to exceed 200mg in 24hrs replaces rizatriptan 04/19/2022 04/19/2022 Inactive propranolol 20 mg tablet RxNorm: 114047 TAKE 1 TABLET BY MOUTH TWICE DAILY 04/18/2022 10/14/2022 Active rizatriptan 10 mg disintegrating tablet RxNorm: 693076 Take 1 Tablet(s) Oral on top of tongue, allow to dissolve then swallow once, may repeat every 2 hrs; max 30 mg/24hrs 04/18/2022 04/18/2022 Inactive prednisone 20 mg tablet RxNorm: 023030 Take 1 Tablet(s) Oral tw o times a day 02/15/2022 02/21/2022 Inactive Nurtec ODT 75 mg disintegrating tablet RxNorm: 3543740 T bria 1 Tablet(s) Oral per 24 hours as needed for migraine 02/09/2022 02/09/2022 Inactive Nurtec ODT 75 mg disintegrating tablet RxNorm: 1603097 T bria 1 Tablet(s) Oral per 24 hours as needed for migraine 02/09/2022 02/09/2022 Inactive fluticasone propionate 50 mcg/actuation nasal spray,suspensi on RxNorm: 7196894 SPRAY ONE SPRAY IN EACH NOSTRIL TWICE DAILY NEEDED 02/05/20222021 Inactive levothyroxine 150 mcg tablet RxNorm: 042669 Take 1 Tablet(s) Or al QAM 02/04/2022 02/04/2022 Inactive albuterol sulfate HFA 90 mcg/actuation aerosol inhaler RxNor m: 3746553 Inhale 2 Puff(s) Oral Q4H as needed 01/05/2022 04/04/2022 Inactive pantoprazole 40 mg tablet,delayed release RxNorm: 809397 Take 1 Tablet(s) Oral QD 01/04/2022 07/02/2022 Inactive propranolol 20 mg tablet RxNorm: 703234 TAKE 1 TABLET BY MOUTH TWICE DAILY 01/04/2022 04/17/2022 Inactive levothyroxine 150 mcg tablet RxNorm: 444221 Take 1 Tablet(s) Or al QAM 12/05/2021 12/05/2021 Inactive metronidazole 500 mg tablet RxNorm: 200646 Take 1 Table t(s) Oral two times a day 11/29/2021 12/05/2021 Inactive Singulair 10 mg tablet RxNorm: 396879 Take 1 Tablet(s) Oral QPM 06/202105/09/2022 Inactive Diflucan 100 mg tablet RxNorm: 664745 Take 1 Tablet(s) Oral QD 06/06/202111/28/2021 Inactive pantoprazole 40 mg tablet,delayed release RxNorm: 932062 Take 1 Tablet(s) Oral QD 11/06/2021 11/06/2021 Inactive fluticasone propionate 50 mcg/actuation nasal spray,suspensi on RxNorm: 0194255 SPRAY ONE SPRAY IN EACH NOSTRIL TWICE DAILY NEEDED 11/03/20212021 Inactive scopolamine 1 mg over 3 days transdermal patch RxNorm: 24274 2 Apply 1 Unit Dose Transdermal Q72H behind ear 10/30/2021 02/05/2022 Inactive albuterol sulfate HFA 90 mcg/actuation aerosol inhaler RxNor m: 0201821 Inhale 2 Puff(s) Oral Q4H as needed 10/05/2021 11/24/2021 Inactive pantoprazole 40 mg tablet,delayed release RxNorm: 906618 Take 1 Tablet(s) Oral QD 10/05/2021 10/05/2021 Inactive meloxicam 7.5 mg tablet RxNorm: 399529 Take 1 Tablet(s) Oral QD for pain 09/05/2021 09/11/2021 Inactive baclofen 10 mg tablet RxNorm: 710638 Take 0.5-1 Tablet( s) Oral three times per week as needed for muscle spasm 09/05/2021 02/05/2022 Inactive prednisone 20 mg tablet RxNorm: 935751 Take 1 Tablet(s) Oral QD 08/202108/28/2021 Inactive pantoprazole 40 mg tablet,delayed release RxNorm: 907315 Take 1 Tablet(s) Oral QD 07/07/2021 09/04/2021 Inactive fluticasone propionate 50 mcg/actuation nasal spray,suspensi on RxNorm: 1762016 Take 1 Lorain Nasal two times a day in each nostrilas needed 07/04/2021 10/01/2021 Inactive Decadron 6 mg tablet RxNorm: 857779 Take 1 Tablet(s) Oral QD 202107/08/2021 Inactive albuterol sulfate HFA 90 mcg/actuation aerosol inhaler RxNor m: 7303174 Inhale 2 Puff(s) Oral Q4H as needed 06/08/2021 09/05/2021 Inactive propranolol 20 mg tablet RxNorm: 632673 TAKE 1 TABLET BY MOUTH TWICE DAILY 06/08/2021 06/08/2021 Inactive pantoprazole 40 mg tablet,delayed release RxNorm: 450493 Take 1 Tablet(s) Oral QD 04/09/2021 06/07/2021 Inactive ProAir HFA 90 mcg/actuation aerosol inhaler RxNorm: 471672 2 Puff(s) Inhalation Q4H as needed 03/13/2021 03/13/2021 Inactive citalopram 10 mg tablet RxNorm: 602490 1 Tablet(s) Oral two antonio es a day 03/13/2021 02/05/2022 Inactive levothyroxine 150 mcg tablet RxNorm: 937792 TAKE 1 Tabl et BY MOUTH EVERY MORNING (REPLACES 137 MCG DOSE) 03/09/2021 03/09/2021 Inactive pantoprazole 40 mg tablet,delayed release RxNorm: 133804 Take 1 Tablet(s) Oral QD 02/08/2021 04/08/2021 Inactive triamcinolone acetonide 0.1 % topical cream RxNorm: 3891640 Take Application Topical two times a day to arm rash 01/19/2021 01/19/2021 Inactive prednisone 20 mg tablet RxNorm: 754004 Take 1 Tablet(s) Oral QD 01/23/2021 Inactive levothyroxine 150 mcg tablet RxNorm: 343954 Take 1 Tabl et(s) Oral QAM replaces 137mcg dose 01/03/2021 01/03/2021 Inactive prednisone 20 mg tablet RxNorm: 925759 Take 2 Tablet(s) Oral QD 01/202112/03/2020 Inactive promethazine-DM 6.25 mg-15 mg/5 mL oral syrup RxNorm: 574037 Take 5 Milliliter(s) Oral Every 6 hours as needed, not to exceed 30 mL in 24 hours 11/29/2020 12/03/2020 Inactive doxycycline hyclate 100 mg capsule RxNorm: 9444604 1 Cap kimi(s) Oral two times a day 09/29/2020 10/05/2020 Inactive Lalita-D 12 Hour 60 mg-120 mg tablet,extended release RxNor m: 338922 1 Tablet(s) Oral QD 09/19/2020 10/03/2020 Inactive ProAir HFA 90 mcg/actuation aerosol inhaler RxNorm: 271076 2 Inhalation Q4H as needed 09/19/2020 09/19/2020 Inactive propranolol 20 mg tablet RxNorm: 804226 TAKE 1 TABLET BY MOUTH TWICE DAILY 09/15/2020 09/15/2020 Inactive pantoprazole 40 mg tablet,delayed release RxNorm: 215399 1 Tabl et(s) Oral QD 09/09/2020 09/08/2020 Inactive pantoprazole 40 mg tablet,delayed release RxNorm: 001583 1 Tabl et(s) Oral QD 09/09/2020 11/07/2020 Inactive propranolol 20 mg tablet RxNorm: 875958 TAKE 1 TABLET BY MOUTH TWICE DAILY 08/24/2020 09/09/2020 Inactive levothyroxine 137 mcg tablet RxNorm: 231739 1 Tablet(s) Oral QD 08/202001/02/2021 Inactive fsxdyujj-glrfyurkh-ujwxdfky 3.5 mg/mL-10,000 unit/mL-0 .1% eye drops RxNorm: 016983 4 Drop(s) Otic three times a day 08/10/2020 02/05/2022 Inactive prednisone 20 mg tablet RxNorm: 315081 1 Tablet(s) Oral two antonio es a day 08/01/2020 08/08/2020 Inactive pantoprazole 40 mg tablet,delayed release RxNorm: 045656 1 Tabl et(s) Oral QD 07/13/2020 09/08/2020 Inactive ondansetron HCl 4 mg tablet RxNorm: 482891 1 Tablet(s) Oral Q4H as needed for nausea 07/13/2020 05/09/2022 Inactive levothyroxine 137 mcg tablet RxNorm: 974385 1 Tablet(s) Oral QD 08/23/2020 Inactive pantoprazole 40 mg tablet,delayed release RxNorm: 146340 1 Tabl et(s) Oral QD 07/13/2020 07/12/2020 Inactive ondansetron HCl 4 mg tablet RxNorm: 174923 1 Tablet(s) Oral Q4H as needed for nausea 07/05/2020 07/12/2020 Inactive Flagyl 500 mg tablet RxNorm: 900258 1 Tablet(s) Oral three time s a day 07/05/2020 07/12/2020 Inactive Fish Oil 1,000 mg (120 mg-180 mg) capsule RxNorm: 1 Caps ule(s) Oral QD 06/23/2020 09/18/2020 Inactive rosuvastatin 10 mg tablet RxNorm: 400369 1 Tablet(s) Oral MWF 06/2306/22/2020 Inactive rosuvastatin 10 mg tablet RxNorm: 992945 1 Tablet(s) Oral MWF 06/2302/05/2022 Inactive fluconazole 100 mg tablet RxNorm: 660969 1 Tablet(s) Oral QOD 05/1706/21/2020 Inactive Macrobid 100 mg capsule RxNorm: 887358 1 Capsule(s) Oral two ti mes a day 05/17/2020 05/24/2020 Inactive levothyroxine 137 mcg tablet RxNorm: 049323 TAKE 1 TABLET BY MO UTH ONCE DAILY 05/16/2020 07/12/2020 Inactive Eliquis 5 mg tablet RxNorm: 6623274 1 Tablet(s) Oral two times a da y 04/25/2020 02/05/2022 Inactive propranolol 20 mg tablet RxNorm: 613334 TAKE 1 TABLET BY MOUTH TWICE DAILY 04/25/2020 08/23/2020 Inactive doxycycline hyclate 100 mg capsule RxNorm: 4955882 1 Cap kimi(s) Oral two times a day 03/24/2020 03/31/2020 Inactive doxycycline hyclate 100 mg capsule RxNorm: 7595707 1 Cap kimi(s) Oral two times a day 03/24/2020 03/23/2020 Inactive propranolol 20 mg tablet RxNorm: 620908 TAKE 1 TABLET BY MOUTH TWICE DAILY 03/15/2020 04/13/2020 Inactive Eliquis 5 mg tablet RxNorm: 3045546 1 Tablet(s) Oral two times a da y 03/14/2020 04/24/2020 Inactive Eliquis 5 mg tablet RxNorm: 8725137 1 Tablet(s) Oral two times a da y 03/14/2020 03/13/2020 Inactive levofloxacin 500 mg tablet RxNorm: 067184 1 Tablet(s) Oral QD 02/1802/26/2020 Inactive levofloxacin 500 mg tablet RxNorm: 595111 1 Tablet(s) Oral QD 02/1802/18/2020 Inactive Tessalon Perles 100 mg capsule RxNorm: 643038 1 Capsule (s) Oral three times a day as needed 02/16/2020 02/25/2020 Inactive levothyroxine 137 mcg tablet RxNorm: 728664 TAKE 1 TABLET BY [facility] ONCE DAILY 02/15/2020 03/15/2020 Inactive ProAir HFA 90 mcg/actuation aerosol inhaler RxNorm: 866452 2 Inhalation Q4H as needed 02/11/2020 09/18/2020 Inactive Medrol (Isaiah) 4 mg tablets in a dose pack RxNorm: 426619 Tablet( s) Oral 02/11/2020 02/11/2020 Inactive levothyroxine 137 mcg tablet RxNorm: 345871 TAKE 1 TABLET BY [facility] ONCE DAILY 12/16/2019 01/14/2020 Inactive propranolol 20 mg tablet RxNorm: 156798 TAKE 1 TABLET BY MOUTH TWICE DAILY 12/16/2019 01/14/2020 Inactive levothyroxine 137 mcg tablet RxNorm: 280644 TAKE 1 TABLET BY [facility] ONCE DAILY 10/16/2019 11/14/2019 Inactive prednisone 20 mg tablet RxNorm: 583365 1 Tablet(s) Oral two times a day for rash/hives 09/29/2019 10/04/2019 Inactive Probiotic 10 billion cell capsule RxNorm: 3931472 1 Capsule(s) O ral QD 09/14/2019 02/10/2020 Inactive Bactrim DS 800 mg-160 mg tablet RxNorm: 778963 1 Tablet(s) Oral two times a day 09/14/2019 09/13/2019 Inactive citalopram 10 mg tablet RxNorm: 783346 1 Tablet(s) Oral two antonio es a day 09/14/2019 12/20/2019 Inactive hydroxychloroquine 200 mg tablet RxNorm: 765379 1 Table t(s) Oral two times a day 09/14/2019 02/05/2022 Inactive Bactrim DS 800 mg-160 mg tablet RxNorm: 820172 1 Tablet(s) Oral two times a day 09/14/2019 09/24/2019 Inactive Cipro 250 mg tablet RxNorm: 065357 1 Tablet(s) Oral two times a day 09/02/2019 09/08/2019 Inactive levothyroxine 137 mcg tablet RxNorm: 521032 1 Tablet(s) Oral QD 10/10/2019 Inactive levothyroxine 137 mcg tablet RxNorm: 574982 1 Tablet(s) Oral QD 08/11/2019 Inactive propranolol 20 mg tablet RxNorm: 852288 TAKE 1 TABLET BY MOUTH TWICE DAILY 06/18/2019 12/14/2019 Inactive 06/18/2019 11:09:41 AM Cipro 250 mg tablet RxNorm: 356993 1 Tablet(s) Oral two times a day 04/17/2019 04/16/2019 Inactive Cipro 250 mg tablet RxNorm: 542742 1 Tablet(s) Oral two times a day 04/17/2019 04/24/2019 Inactive Macrobid 100 mg capsule RxNorm: 942379 1 Capsule(s) Oral two ti mes a day 04/15/2019 04/16/2019 Inactive metronidazole 500 mg tablet RxNorm: 348582 1 Tablet(s) Oral thr ee times a day 03/18/2019 03/28/2019 Inactive Bactrim DS 800 mg-160 mg tablet RxNorm: 914417 1 Tablet(s) Oral two times a day 03/18/2019 03/18/2019 Inactive Cipro 250 mg tablet RxNorm: 461342 1 Tablet(s) PO BID 01/26/201901/22 Inactive Flagyl 500 mg tablet RxNorm: 430430 1 Tablet(s) PO TID 01/26/201904/2019 Inactive prednisone 20 mg tablet RxNorm: 737832 1 Tablet(s) PO B ID for 4 days then 1 po daily for 4 days 01/08/2019 03/17/2019 Inactive doxycycline hyclate 100 mg capsule RxNorm: 2901509 1 Capsule(s) PO BID 01/08/2019 01/14/2019 Inactive doxycycline hyclate 100 mg capsule RxNorm: 0841623 1 Capsule(s) PO BID 01/08/2019 01/07/2019 Inactive propranolol 20 mg tablet RxNorm: 751691 1 Tablet(s) PO BID 12/24/1906/17/2019 Inactive Bactrim DS 800 mg-160 mg tablet RxNorm: 637875 1 Tablet (s) PO BID repeat urine culture 48 hours after antibiotics completed. 12/15/2018 12/14/2018 In active Bactrim DS 800 mg-160 mg tablet RxNorm: 271311 1 Tablet (s) PO BID repeat urine culture 48 hours after antibiotics completed. 12/15/2018 12/19/2018 In active levothyroxine 137 mcg tablet RxNorm: 344538 1 Tablet(s) PO QD 12/0906/06/2019 Inactive meclizine 25 mg tablet RxNorm: 606615 1 Tablet(s) PO TID for di zziness 10/30/2018 11/08/2018 Inactive doxycycline hyclate 100 mg tablet RxNorm: 3143260 1 Tablet(s) PO BI D 10/07/2018 10/16/2018 Inactive albuterol sulfate HFA 90 mcg/actuation aerosol inhaler RxNor m: 464492 2 Puff(s) INH Q4H as needed 10/07/2018 02/10/2020 Inactive chlorpheniramine 4 mg tablet RxNorm: 7488610 1 Tablet(s) PO QHS for allergies 10/07/2018 03/17/2019 Inactive Tessalon 200 mg capsule RxNorm: 940351 1 Capsule(s) PO TID 10/08/1910/26/2018 Inactive doxycycline hyclate 100 mg tablet RxNorm: 1009363 1 Tablet(s) PO BI D 10/07/2018 10/06/2018 Inactive Tessalon 200 mg capsule RxNorm: 759954 1 Capsule(s) PO TID 10/08/1910/06/2018 Inactive levothyroxine 137 mcg tablet RxNorm: 024723 1 Tablet(s) PO QD 08/0512/02/2018 Inactive propranolol 20 mg tablet RxNorm: 700560 1 Tablet(s) PO BID 06/23/2012/19/2018 Inactive chlorpheniramine 4 mg tablet RxNorm: 1632498 1 Tablet(s) PO QHS for allergies 06/23/2018 08/21/2018 Inactive levothyroxine 137 mcg tablet RxNorm: 602028 1 Tablet(s) PO QD 06/0308/01/2018 Inactive levothyroxine 137 mcg tablet RxNorm: 304800 1 Tablet(s) PO QD 06/0306/02/2018 Inactive Synthroid 150 mcg tablet RxNorm: 328138 1 Tablet(s) PO QD 04/03/2018 06/22/2018 Inactive Synthroid 150 mcg tablet RxNorm: 099534 1 Tablet(s) PO QD 04/03/2018 04/02/2018 Inactive propranolol 20 mg tablet RxNorm: 029330 1 Tablet(s) PO BID 03/17/20 18 06/14/2018 Inactive propranolol 20 mg tablet RxNorm: 971681 1 Tablet(s) PO BID 03/17/20 18 06/21/2020 Inactive Lancets,Ultra Thin RxNorm: Miscellaneous Use to test blood sugar daily and as needed (Dx: E11.65) 02/28/2018 05/09/2022 Inactive Contour Test Strips RxNorm: Miscellaneous Test b lood sugar daily and as needed (Dx: E11.65) 02/28/2018 05/09/2022 Inactive Contour Meter RxNorm: 1 Miscellaneous DX: E11.65 02/27/20182021 Inactive DX: E11.65 Synthroid 175 mcg tablet RxNorm: 091109 1 Tablet(s) PO QD 01/28/2018 04/02/2018 Inactive Synthroid 175 mcg tablet RxNorm: 788678 1 Tablet(s) PO QD 01/16/2018 04/02/2018 Inactive Medrol (Isaiah) 4 mg tablets in a dose pack RxNorm: 221539 Tablet(s) P O 10/16/2017 01/15/2018 Inactive cyclobenzaprine 7.5 mg tablet RxNorm: 656776 1/2-1 Tablet(s) PO TID as needed 10/16/2017 06/22/2018 Inactive pantoprazole 40 mg tablet,delayed release RxNorm: 922743 1 Tabl et(s) PO QD 08/21/2017 06/22/2018 Inactive Nexium 40 mg capsule,delayed release RxNorm: 065458 1 Capsule(s ) PO QD 08/20/2017 08/20/2017 Inactive doxycycline hyclate 100 mg capsule RxNorm: 8253010 1 Capsule(s) PO BID 08/13/2017 08/12/2017 Inactive doxycycline hyclate 100 mg capsule RxNorm: 6246355 1 Capsule(s) PO BID 08/13/2017 08/19/2017 Inactive Tessalon Perles 100 mg capsule RxNorm: 712719 1 Capsule(s) PO T ID as needed 07/29/2017 08/07/2017 Inactive prednisone 20 mg tablet RxNorm: 613388 1 Tablet(s) PO BID 07/25/2017 07/27/2017 Inactive albuterol sulfate HFA 90 mcg/actuation aerosol inhaler RxNor m: 257252 2 Puff(s) INH Q4H as needed 07/25/2017 10/06/2018 Inactive doxycycline hyclate 100 mg capsule RxNorm: 3164714 1 Capsule(s) PO BID 06/10/2017 06/19/2017 Inactive prednisone 20 mg tablet RxNorm: 757319 1 Tablet(s) PO T ID for 2 days then 1 po BID for 2 days then 1 daily for 3 days 06/10/2017 08/12/2017 Inactive fenofibrate micronized 134 mg capsule RxNorm: 298003 TAKE 1 CAP KIMI DAILY 06/03/2017 06/22/2018 Inactive Zithromax Z-Isaiah 250 mg tablet RxNorm: 519236 Tablet(s) PO Take as directed 05/28/2017 06/09/2017 Inactive prednisone 20 mg tablet RxNorm: 025357 2 Tablet(s) PO QD 05/28/2017 1 08/01/2016 Inactive Tessalon Perles 100 mg capsule RxNorm: 483653 1 Capsule(s) PO T ID as needed 05/28/2017 06/09/2017 Inactive Janumet XR 100 mg-1,000 mg tablet,extended release RxNorm: 1 958537 1 Tablet(s) PO QD 02/14/2017 06/22/2018 Inactive fluoxetine 40 mg capsule RxNorm: 692623 1 Capsule(s) PO QD 02/15/20 17 06/22/2018 Inactive Vitamin D2 50,000 unit capsule RxNorm: 800355 1 Capsule (s) PO TAKE 1 CAPSULE BY MOUTH TWICE WEEKLY 02/11/2017 07/10/2017 Inactive Generic For:* DRISDOL [id number] 02/03/2015 10:10:59 AM Janumet XR 100 mg-1,000 mg tablet,extended release RxNorm: 1 829804 1 Tablet(s) PO QD 09/24/2016 10/06/2018 Inactive Vitamin D2 50,000 unit capsule RxNorm: 896644 Capsule(s ) TAKE 1 CAPSULE BY MOUTH TWICE WEEKLY 09/11/2016 02/11/2017 Inactive Generic For:*VERN FREEDMAN [id number] 02/03/2015 10:10:59 AM Pepcid 20 mg tablet RxNorm: 654361 Tablet(s) PO TAKE 1 TABLET BY MOUTH TWICE DAILY. 06/14/2016 06/13/2016 Inactive fluoxetine 40 mg capsule RxNorm: 740278 1 Capsule(s) PO QD 06/14/20 16 12/10/2016 Inactive loratadine 10 mg tablet RxNorm: 625949 1 Tablet(s) PO QD 1 Tabl et(s) PO BID 06/14/2016 04/03/2017 Inactive [AttnRPh: Saving ryan ly/adjudicate RxGRP:SG20 RxBIN:[id number] RxPCN: ID#:[id number]] Vitamin D2 50,000 unit capsule RxNorm: 536893 Capsule(s ) TAKE 1 CAPSULE BY MOUTH TWICE WEEKLY 06/14/2016 09/10/2016 Inactive Generic For:*VERN FREEDMAN [id number] 02/03/2015 10:10:59 AM Synthroid 175 mcg tablet RxNorm: 502096 1 Tablet(s) PO Saturday t hrough Saturday QD 06/05/2016 01/15/2018 Inactive Synthroid 150 mcg tablet RxNorm: 600182 1 Tablet(s) PO Sat and Sun 11/09/2015 06/04/2016 Inactive Synthroid 175 mcg tablet RxNorm: 742013 1 Tablet(s) PO Saturday t hrough Saturday11/09/2015 06/04/2016 Inactive Synthroid 150 mcg tablet RxNorm: 006716 1 Tablet(s) PO Sat and Sun , Sat, Sun 11/09/2015 11/08/2015 Inactive Janumet XR 100 mg-1,000 mg tablet,extended release RxNorm: 1 897706 TAKE 1 TABLET DAILY 09/30/2015 09/24/2016 Inactive azithromycin 500 mg tablet RxNorm: 194470 1 Tablet(s) PO QD 016 07/25/2015 Inactive azithromycin 500 mg tablet RxNorm: 330893 1 Tablet(s) PO QD 016 08/01/2015 Inactive loratadine 10 mg tablet RxNorm: 996191 1 Tablet(s) PO BID 04/06/2015 06/14/2016 Inactive [AttnRPh: Saving apply/adjudicate RxGRP: SG20 RxBIN:[id number] RxPCN: ID#:[id number]] Synthroid 175 mcg tablet RxNorm: 093287 1 Tablet(s) PO M, W, F 10/0 10/201411/08/2015 Inactive Synthroid 150 mcg tablet RxNorm: 333335 1 Tablet(s) PO QD Tu, T h, Sat, Sun 03/28/2015 11/08/2015 Inactive propranolol 20 mg tablet RxNorm: 643723 1 Tablet(s) PO BID 02/09/20 15 06/13/2016 Inactive fluoxetine 40 mg capsule RxNorm: 137174 1 Capsule(s) PO QD 02/09/20 15 06/14/2016 Inactive Vitamin D2 50,000 unit capsule RxNorm: 002716 TAKE 1 CA PSULE BY MOUTH TWICE WEEKLY 02/03/2015 06/14/2016 Inactive Generic For:*VERN FREEDMAN [id number] 02/03/2015 10:10:59 AM Lipitor 80 mg tablet RxNorm: 302140 1 Tablet(s) PO QD 01/24/201507/26 Inactive [AttnRPh: Saving apply/adjudicate RxGRP: SG20 RxBIN:[id number] RxPCN: ID#:[id number]] Bactrim DS 800 mg-160 mg tablet RxNorm: 927286 1 Tablet(s) PO BID 0 01/12/2015 01/11/2015 Inactive Synthroid 150 mcg tablet RxNorm: 928675 1 Tablet(s) PO QD 01/12/2015 03/27/2015 Inactive Bactrim DS 800 mg-160 mg tablet RxNorm: 473476 1 Tablet(s) PO BID 0 01/12/2015 01/18/2015 Inactive fluoxetine 40 mg capsule RxNorm: 750539 1 Capsule(s) PO QD 01/12/20 15 02/07/2015 Inactive Synthroid 137 mcg tablet RxNorm: 130431 1 Tablet(s) PO QD 12/08/2014 01/11/2015 Inactive [AttnRPh: Saving apply/adjudicate RxGRP: SG20 RxBIN:[id number] RxPCN: ID#:[id number]] Medrol (Isaiah) 4 mg tablets in a dose pack RxNorm: 184552 6 Tablet(s) PO QD --then as directed 11/24/2014 11/29/2014 Inactive albuterol sulfate HFA 90 mcg/actuation aerosol inhaler RxNor m: 275940 2 Puff(s) INH Q4H as needed 10/27/2014 07/24/2017 Inactive phenazopyridine 100 mg tablet RxNorm: 4734214 1 Tablet(s) PO TID 11/07/2015 Inactive [AttnRPh: Saving apply/adjud icate RxGRP:SG20 RxBIN:[id number] RxPCN: ID#:[id number]] Macrobid 100 mg capsule RxNorm: 968365 1 Capsule(s) PO BID 10/28/19 15 11/02/2014 Inactive [SAVINGS FOR NON-COVERED RUBIO GS -- BIN:[id number], PCN: ASPROD1, Group: XXXXX, ID# [id number], Questions: . THIS IS NOT INSURANCE.] prednisone 20 mg tablet RxNorm: 062669 1 Tablet(s) PO BID 10/27/2014 10/31/2014 Inactive AttnRPh: Saving apply/adjudicate RxGRP:S G20 RxBIN:[id number] RxPCN: ID#:[id number]: Saving apply/adjudicate RxGRP:SG20 RxBIN:[id number] RxPCN:HT ID#:[id number] Macrobid 100 mg capsule RxNorm: 723891 1 Capsule(s) PO BID 09/24/19 15 09/29/2014 Inactive [SAVINGS FOR NON-COVERED RUBIO GS -- BIN:978869, PCN: ASPROD1, Group: XXXXX, ID# [id number], Questions: . THIS IS NOT INSURANCE.] phenazopyridine 100 mg tablet RxNorm: 3513921 1 Tablet(s) PO TID 09/24/2014 Inactive [SAVINGS FOR NON-COVERED RUBIO GS -- BIN:224857, PCN: ASPROD1, Group: XXXXX, ID# [id number], Questions: . THIS IS NOT INSURANCE.] propranolol 60 mg tablet RxNorm: 796251 1 Tablet(s) PO QD 07/26/2014 02/07/2015 Inactive [SAVINGS FOR UNINSURED PATIENTS -- BIN:0 62385, PCN: ASPROD1, Group: [id number], ID# [id number], Process claim through [employer], for questions: . THIS IS NOT INSURANCE.] loratadine 10 mg tablet RxNorm: 752548 1 Tablet(s) PO BID 07/12/2014 07/11/2014 Inactive [AttnRPh: Saving apply/adjudicate RxGRP: SG20 RxBIN:[id number] RxPCN: ID#:[id number]] loratadine 10 mg tablet RxNorm: 734863 1 Tablet(s) PO BID 07/12/2014 10/06/2018 Inactive [SAVINGS FOR UNINSURED PATIENTS -- BIN:0 [id number], PCN: ASPROD1, Group: [id number], ID# [id number], Process claim through [employer], for questions: . THIS IS NOT INSURANCE.] Vitamin D2 50,000 unit capsule RxNorm: 119629 1 Capsule (s) PO Take 1 capsule by mouth twice weekly 05/18/2014 02/02/2015 Inactive Pepcid 20 mg tablet RxNorm: 042276 TAKE 1 TABLET BY MOUTH TWICE DAILY. 05/18/2014 06/14/2016 Inactive Generic For:PEPCID 2 0MG 05/18/2014 11:28:51 AM Janumet XR 100 mg-1,000 mg tablet,extended release RxNorm: 1 976308 1 Tablet(s) PO QD 05/12/2014 08/09/2014 Inactive [SAVINGS FOR UNI NSURED PATIENTS -- BIN:[id number], PCN: ASPROD1, Group: [id number], ID# [id number], Process claim through [employer], for questions: . THIS IS NOT INSURANCE.] Voltaren 1 % topical gel RxNorm: 043239 TOP BID 04/21/2014 5 Inactive Apply to affected areas 2-3 times daily as needed. Trilipix 135 mg capsule,delayed release RxNorm: 839272 1 Tablet(s) PO QD 1 Capsule(s) PO QD 04/21/2014 09/17/2014 Inactive may do 90 day f ill if desired Synthroid 137 mcg tablet RxNorm: 087703 1 Tablet(s) PO QD 03/30/2014 09/25/2014 Inactive [AttnRPh: Saving apply/adjudicate RxGRP: SG20 RxBIN:[id number] RxPCN: ID#:[id number]] Cipro 250 mg tablet RxNorm: 524874 1 Tablet(s) PO BID 03/30/201403/24 Inactive [SAVINGS FOR UNINSURED PATIENTS -- BIN:0 [id number], PCN: ASPROD1, Group: [id number], ID# [id number], Process claim through MedImpact, for questions: . THIS IS NOT INSURANCE.] Janumet XR 100 mg-1,000 mg tablet,extended release RxNorm: 1 118530 2 Tablet(s) PO QD 01/06/2014 01/05/2014 Inactive [SAVINGS FOR UNI NSURED PATIENTS -- BIN:[id number], PCN: ASPROD1, Group: [id number], ID# [id number], Process claim through MedImpact, for questions: . THIS IS NOT INSURANCE.] Janumet XR 100 mg-1,000 mg tablet,extended release RxNorm: 1 026561 1 Tablet(s) PO QD 01/06/2014 04/05/2014 Inactive [SAVINGS FOR UNI NSURED PATIENTS -- BIN:438040, PCN: ASPROD1, Group: [id number], ID# [id number], Process claim through MedImpact, for questions: . THIS IS NOT INSURANCE.] propranolol 60 mg tablet RxNorm: 491478 1 Tablet(s) PO QD 12/28/2013 07/26/2014 Inactive [AttnRPh: Saving apply/adjudicate RxGRP: SG20 RxBIN:[id number] RxPCN: ID#:[id number]] Synthroid 150 mcg tablet RxNorm: 440154 1 Tablet(s) PO QD brand onl y 12/28/2013 04/20/2014 Inactive [AttnRPh: Saving apply/adjud icate RxGRP:SG20 RxBIN:[id number] RxPCN:HT ID#:[id number]] Vitamin D2 50,000 unit capsule RxNorm: 023382 1 Capsule (s) PO Take 1 capsule by mouth twice weekly 12/02/2013 05/17/2014 Inactive Lipitor 80 mg tablet RxNorm: 419931 1 Tablet(s) PO QD 11/24/201305/25 Inactive [AttnRPh: Saving apply/adjudicate RxGRP: SG20 RxBIN:[id number] RxPCN:HT ID#:[id number]] loratadine 10 mg tablet RxNorm: 218845 1 Tablet(s) PO BID 11/17/2013 07/12/2014 Inactive fluoxetine 20 mg capsule RxNorm: 703238 1 Capsule(s) PO QAM TAKE ONE CAPSULE BY MOUTH ONCE DAILY IN THE MORNING. 11/04/2013 01/10/2015 Inactive Generic For:PROZAC 20MG Generic For:PROZAC 20MG 06/23/2013 11:55:55 AM [AttnRPh: Saving apply/adjudicate RxGRP:SG20 RxBIN:[id number] RxPCN:HT ID#:[id number]] Vytorin 10 mg-80 mg tablet RxNorm: 6388659 Tablet(s) PO TAKE ONE TABLET BY MOUTH ONCE DAILY IN THE EVENING. 09/30/2013 11/23/2013 Inactive Trilipix 135 mg capsule,delayed release RxNorm: 066869 1 Capsul e(s) PO QD 07/15/2013 04/21/2014 Inactive may do 90 day fill i f desired Voltaren 1 % topical gel RxNorm: 704415 TOP BID 07/15/2013 4 Inactive Apply to affected areas 2-3 times daily as needed. Wellbutrin XL 300 mg 24 hr tablet, extended release RxNorm: 310686 1 Tablet(s) PO QAM 06/29/2013 04/03/2017 Inactive fluoxetine 20 mg capsule RxNorm: 843941 1 Capsule(s) PO QAM TAKE ONE CAPSULE BY MOUTH ONCE DAILY IN THE MORNING. 06/29/2013 11/04/2013 Inactive Generic For:PROZAC 20MG Generic For:PROZAC 20MG 06/23/2013 11:55:55 AM fluoxetine 20 mg capsule RxNorm: 053729 Capsule(s) PO T BRIA ONE CAPSULE BY MOUTH ONCE DAILY IN THE MORNING. 06/23/2013 06/28/2013 Inactive Gener ic For:PROZAC 20MG Generic For:PROZAC 20MG 06/23/2013 11:55:55 AM Synthroid 150 mcg tablet RxNorm: 536747 1 Tablet(s) PO QD brand onl y 06/08/2013 12/04/2013 Inactive Vytorin 10 mg-80 mg tablet RxNorm: 4972982 1 Tablet(s) PO QD 201209/05/2013 Inactive TAKE 1 TABLET BY MOUTH DAILY propranolol 60 mg tablet RxNorm: 211320 1 Tablet(s) PO QD 06/08/2013 12/04/2013 Inactive Pepcid 20 mg tablet RxNorm: 913441 Tablet(s) PO TAKE 1 TABLET BY MOUTH TWICE DAILY. 06/04/2013 11/23/2013 Inactive fluoxetine 20 mg capsule RxNorm: 933036 1 Capsule(s) PO QAM 013 06/22/2013 Inactive Wellbutrin XL 300 mg 24 hr tablet, extended release RxNorm: 480139 1 Tablet(s) PO QAM 05/26/2013 06/28/2013 Inactive Wellbutrin XL 150 mg 24 hr tablet, extended release RxNorm: 909639 1 Tablet(s) PO QD 05/15/2013 05/25/2013 Inactive Wellbutrin XL 150 mg 24 hr tablet, extended release RxNorm: 935766 1 Tablet(s) PO QD 05/15/2013 05/14/2013 Inactive Kombiglyze XR 5 mg-500 mg tablet,extended release RxNorm: 10 20711 1 Tablet(s) PO QD 05/07/2013 05/15/2013 Inactive cefdinir 300 mg capsule RxNorm: 206501 2 Capsule(s) PO QD 04/23/2013 05/02/2013 Inactive AttnRPh: Saving apply/adjudicate RxGRP:S G20 RxBIN:[id number] RxPCN: ID#:[id number] Pepcid 20 mg tablet RxNorm: 466682 Tablet(s) PO TAKE 1 TABLET BY MOUTH TWICE DAILY. 04/17/2013 06/13/2016 Inactive Pepcid 20 mg tablet RxNorm: 248659 1 Tablet(s) PO BID 04/06/201305/24 Inactive Vytorin 10-80 10 mg-80 mg tablet RxNorm: 649568 1 Tablet(s) PO QD 0 02/19/2013 06/08/2013 Inactive TAKE 1 TABLET BY MOUTH DAILY loratadine 10 mg tablet RxNorm: 859979 1 Tablet(s) PO BID 01/23/2013 07/21/2013 Inactive Synthroid 150 mcg tablet RxNorm: 139216 1 Tablet(s) PO QD brand onl y 12/02/2012 06/08/2013 Inactive propranolol 60 mg tablet RxNorm: 175878 1 Tablet(s) PO QD 12/02/2012 06/08/2013 Inactive Trilipix 135 mg capsule,delayed release RxNorm: 523350 1 Capsul e(s) PO QD 12/02/2012 05/30/2013 Inactive may do 90 day fill i f desired Pepcid 20 mg tablet RxNorm: 507266 1 Tablet(s) PO BID 11/27/201203/24 Inactive Effexor XR 150 mg capsule,extended release RxNorm: 701396 1 Cap kimi(s) PO QD 11/24/2012 05/14/2013 Inactive Vytorin 10-80 10 mg-80 mg tablet RxNorm: 250166 1 Tablet(s) PO QD 0 11/24/2012 2013 Inactive TAKE 1 TABLET BY MOUTH DAILY Vytorin 10-80 10 mg-80 mg tablet RxNorm: 291369 1 Tablet(s) PO QD 0 11/21/2012 11/24/2012 Inactive TAKE 1 TABLET BY MOUTH DAILY Effexor XR 150 mg capsule,extended release RxNorm: 899361 1 Cap kimi(s) PO QD 11/21/2012 11/24/2012 Inactive loratadine 10 mg tablet RxNorm: 0668209 1 Tablet(s) PO BID 11/12/19 13 01/23/2013 Inactive Vytorin 10-80 10 mg-80 mg tablet RxNorm: 511673 Tablet( s) PO TAKE 1 TABLET BY MOUTH ONCE DAILY. 10/15/2012 11/21/2012 Inactive Vytorin 10-80 10 mg-80 mg tablet RxNorm: 444616 1 Tablet(s) PO QD 0 10/15/2012 11/20/2012 Inactive TAKE 1 TABLET BY MOUTH DAILY Effexor XR 150 mg capsule,extended release RxNorm: 185572 1 Cap kimi(s) PO QD 10/15/2012 11/20/2012 Inactive Effexor XR 150 mg capsule,extended release RxNorm: 889891 Capsule(s) PO TAKE 1 CAPSULE BY MOUTH ONCE DAILY 10/15/2012 11/21/2012 Inactive azithromycin 250 mg tablet RxNorm: 672594 2 Tablet(s) PO QD 013 09/10/2012 Inactive Culturelle 10 billion cell capsule RxNorm: 750916 1 Cap kimi(s) PO BID for diarrhea maintenance 09/03/2012 10/02/2012 Inactive Medrol (Isaiah) 4 mg tablets in a dose pack RxNorm: 435422 Tablet(s) PO as directed 09/03/2012 07/11/2011 Active as directed Culturelle 10 billion cell capsule RxNorm: 852847 1 Capsule(s) PO BID 07/23/2012 08/21/2012 Inactive Vitamin D2 50,000 unit capsule RxNorm: 756314 Capsule(s ) PO TAKE 1 CAPSULE EVERY DAY SATURDAY THRU Saturday07/09/2012 08/20/2013 Inactive Vitamin D2 50,000 unit capsule RxNorm: 1319218 Capsule(s ) PO TAKE 1 CAPSULE EVERY DAY SATURDAY THRU Saturday07/07/2012 07/08/2012 Inactive Vitamin D2 50,000 unit capsule RxNorm: 2963330 Capsule(s ) PO TAKE 1 CAPSULE EVERY DAY SATURDAY THRU Saturday07/07/2012 07/06/2012 Inactive Vitamin D2 50,000 unit capsule RxNorm: 7178303 Capsule(s ) PO TAKE 1 CAPSULE EVERY DAY SATURDAY THRU Saturday06/27/2012 07/06/2012 Inactive Synthroid 150 mcg tablet RxNorm: 321224 1 Tablet(s) PO QD brand onl y 06/09/2012 12/02/2012 Inactive metformin 1,000 mg tablet RxNorm: 825935 1 Tablet(s) PO BID rep laces 500mg dose 05/20/2012 11/10/2012 Inactive propranolol 60 mg tablet RxNorm: 197508 1 Tablet(s) PO QD 04/23/2012 12/02/2012 Inactive Effexor XR 150 mg capsule,extended release RxNorm: 853419 1 Cap kimi(s) PO QD 04/04/2012 09/30/2012 Inactive Zyrtec 10 mg tablet RxNorm: 0800825 1 Tablet(s) PO QD 04/04/201203/24 Inactive Trilipix 135 mg capsule,delayed release RxNorm: 642531 1 Capsul e(s) PO QD 03/19/2012 12/02/2012 Inactive may do 90 day fill i f desired Vytorin 10-80 10 mg-80 mg tablet RxNorm: 821234 1 Tablet(s) PO QD 0 01/31/2012 07/28/2012 Inactive TAKE 1 TABLET BY MOUTH DAILY Voltaren 1 % topical gel RxNorm: 887504 TOP BID 01/25/2012 4 Inactive Apply to affected areas 2-3 times daily as needed. Synthroid 150 mcg tablet RxNorm: 669564 1 Tablet(s) PO QD brand onl y 01/02/2012 06/09/2012 Inactive metformin ER 1,000 mg 24 hr Tab Ctrl Rel RxNorm: 269509 1 Table t(s) PO QD 01/02/2012 05/19/2012 Inactive metformin ER 500 mg 24 hr Tab RxNorm: 696163 Tablet(s) PO 12/21/2011 01/01/2012 Inactive TAKE 1 TABLET BY MOUTH ONCE DAILY. Voltaren 1 % Topical Gel RxNorm: 640443 TOP BID 11/28/2011 2 Inactive Apply to affected areas 2-3 times daily as needed. propranolol 60 mg tablet RxNorm: 903206 1 Tablet(s) PO QD 10/17/2011 04/23/2012 Inactive Effexor XR 150 mg capsule,extended release RxNorm: 065679 1 Cap kimi(s) PO QD 09/13/2011 04/04/2012 Inactive Medrol (Isaiah) 4 mg tablets in a dose pack RxNorm: 831784 Tablet(s) PO as directed 09/04/2011 07/11/2011 Active as directed doxycycline hyclate 100 mg Tab RxNorm: 7494093 1 Tablet(s) PO BID 0 09/04/2011 09/13/2011 Inactive doxycycline monohydrate 100 mg Tab RxNorm: 6202545 1 Tablet(s) P O BID 07/25/2011 08/03/2011 Inactive prednisone 10 mg Tab RxNorm: 474295 1 Tablet(s) PO TID 07/25/201112/2011 Inactive Synthroid 150 mcg Tab RxNorm: 734808 1 Tablet(s) PO QD brand only 0 07/12/2011 01/02/2012 Inactive Vytorin 10-80 10 mg-80 mg Tab RxNorm: 903006 1 Tablet(s) PO QD 05/2601/31/2012 Inactive TAKE 1 TABLET BY MOUTH DAILY Vitamin D2 50,000 unit capsule RxNorm: 4824346 1 Capsule(s) PO Q D M-F 05/15/2011 06/26/2012 Inactive TAKE 1 CAPSULE BY [facility] DAILY SATURDAY THROUGH FRIDAYS Synthroid 150 mcg Tab RxNorm: 904068 1 Tablet(s) PO QD brand only 1 07/09/2010 07/11/2011 Inactive doxycycline monohydrate 100 mg Tab RxNorm: 9391704 1 Tablet(s) P O BID 04/25/2011 05/04/2011 Inactive Trilipix 135 mg capsule,delayed release RxNorm: 886832 1 Capsul e(s) PO QD 04/23/2011 03/19/2012 Inactive cefdinir 300 mg Cap RxNorm: 350365 1 Capsule(s) PO BID 04/04/2011 Inactive propranolol 60 mg Tab RxNorm: 202353 1 Tablet(s) PO QD 03/26/2011 Inactive Ultram 50 mg Tab RxNorm: 260526 1-2 Tablet(s) PO QID 03/22/201103/21 Active prn pain metformin ER 500 mg 24 hr Tab RxNorm: 304931 1 Tablet(s) PO QD 06/201006/21/2011 Inactive Synthroid 150 mcg Tab RxNorm: 779720 1 Tablet(s) PO QD 02/22/201112/2010 Inactive Vytorin 10-80 10 mg-80 mg Tab RxNorm: 104884 1 Tablet(s) PO QD 01/2303/13/2011 Inactive TAKE 1 TABLET BY MOUTH DAILY Trilipix 135 mg Cap RxNorm: 972070 1 Capsule(s) PO QD 01/10/201103/26 Inactive Effexor XR 150 mg 24 hr Cap RxNorm: 685100 1 Capsule(s) PO QD 01/0908/06/2011 Inactive Vitamin D 50,000 unit Cap RxNorm: 8414460 Capsule(s) PO 12/20/2010 Inactive TAKE 1 CAPSULE BY MOUTH DAILY Fridays Septra DS 800 mg-160 mg Tab RxNorm: 876431 1 Tablet(s) PO BID 12/0712/16/2010 Inactive mupirocin 2 % Ointment RxNorm: 462950 1 Application TOP BID Apply to affected area twice daily 12/07/2010 12/13/2010 Inactive Trilipix 135 mg Cap RxNorm: 333569 1 Capsule(s) PO QD 10/16/201003/26 Inactive Synthroid 150 mcg Tab RxNorm: 325028 1 Tablet(s) PO QD 10/09/201006/2010 Inactive metformin ER 500 mg 24 hr Tab RxNorm: 117087 1 Tablet(s) PO QD 09/2202/22/2011 Inactive Nexium 40 mg Cap RxNorm: 348002 1 Capsule(s) PO QD 10/05/2010 019 Inactive Vytorin 10-80 10 mg-80 mg Tab RxNorm: 868124 1 Tablet(s) PO QD 09/201002/12/2011 Inactive propranolol 60 mg Tab RxNorm: 244985 1 Tablet(s) PO QD 09/18/201008/2010 Inactive Synthroid 125 mcg Tab RxNorm: 254408 1 Tablet(s) PO QD 08/07/2010 Inactive Synthroid 125 mcg Tab RxNorm: 307724 1 Tablet(s) PO QD 08/07/2010 Inactive Voltaren 1 % Topical Gel RxNorm: 704292 TOP BID Apply t o affected areas 2-3 times daily as needed. 08/01/2010 11/28/2011 Inactive Voltaren 1 % Topical Gel RxNorm: 231355 TOP BID Apply t o affected areas 2-3 times daily as needed. 07/04/2010 07/31/2010 Inactive Advair Diskus 250 mcg-50 mcg/dose for Inhalation RxNorm: 135 9859 1 Puff(s) INH Q12H 07/04/2010 07/11/2011 Inactive Effexor XR 150 mg 24 hr Cap RxNorm: 486277 1 Capsule(s) PO QD 06/0801/03/2011 Inactive Synthroid 100 mcg Tab RxNorm: 370812 1 Tablet(s) PO QD 06/06/2010 Inactive Vitamin D 50,000 unit Cap RxNorm: 8690564 1 Capsule(s) PO QD M-F 05/15/2011 Inactive Synthroid 150 mcg Tab RxNorm: 622955 1 Tablet(s) PO 05/25/20102010 Inactive Vytorin 10-80 10 mg-80 mg Tab RxNorm: 881553 1 Tablet(s) PO QD 04/2509/25/2010 Inactive Trilipix 135 mg Cap RxNorm: 097611 1 Capsule(s) PO QD 04/17/201009/23 Inactive propranolol 60 mg Tab RxNorm: 177633 1 Tablet(s) PO QD 01/09/2010 Inactive Advair Diskus 250 mcg-50 mcg/dose for Inhalation RxNorm: 135 9859 1 Puff(s) INH Q12H 12/26/2009 07/04/2010 Inactive Advair Diskus 250 mcg-50 mcg/Dose for Inhalation RxNorm: 135 9859 1 Puff(s) INH Q12H 11/26/2009 12/25/2009 Inactive Synthroid 200 mcg Tab RxNorm: 009991 1 Tablet(s) PO QD 11/24/2009 Inactive Effexor XR 150 mg 24 hr Cap RxNorm: 773447 1 Capsule(s) PO QD 10/2705/24/2010 Inactive Lisinopril 10 mg Tab RxNorm: 991695 1 Tablet(s) PO QD 10/17/200909/23 Inactive Propranolol 60 mg Tab RxNorm: 393263 1 Tablet(s) PO QD 10/17/2009 Inactive Septra DS 160 mg-800 mg Tab RxNorm: 593111 1 Tablet(s) PO BID 10/0410/08/2009 Inactive Mupirocin 2 % Ointment RxNorm: 911184 TOP Q6-8H 10/04/2009 10/10/2009 Inactive Voltaren 1 % Topical Gel RxNorm: 012999 TOP BID Apply t o affected areas 2-3 times daily as needed. 09/21/2009 03/19/2010 Inactive Trilipix 135 mg Cap RxNorm: 557008 1 Capsule(s) PO QD 09/20/200902/23 Inactive Nexium 40 mg Cap RxNorm: 768061 1 Capsule(s) PO QD 09/19/2009 010 Inactive Tylenol Arthritis 650 mg Tab RxNorm: 4068233 2 Tablet(s) PO BID 09/21 Active Vitamin D3 5,000 unit tablet RxNorm: 933966 1 Tablet(s) PO QD 019 Active Synthroid 150 mcg tablet RxNorm: 478671 1 Tablet(s) PO QD 01/12/2015 01/11/2015 Inactive Synthroid 150 mcg tablet RxNorm: 164194 1 Tablet(s) PO Saturday and Saturday01/16/2018 01/15/2018 Inactive Vitamin D 2,000 unit Cap RxNorm: 1 Capsule(s) PO QD 01/30/201002/2010 Inactive Flexeril 5 mg tablet RxNorm: 621060 /2 to 1 Tablet(s) PO TID as needed for muscle spasm 06/10/2017 06/09/2017 Inactive Medrol (Isaiah) 4 mg Tabs in a Dose Pack RxNorm: 965276 Tablet(s) PO 0 09/04/2011 07/11/2011 Inactive as directed fenofibrate micronized 134 mg capsule RxNorm: 520139 1 Capsule( s) PO QD 06/03/2017 06/02/2017 Inactive Vitamin D2 50,000 unit capsule RxNorm: 500489 Capsule(s ) PO Take 1 capsule by mouth twice weekly 12/02/2013 12/01/2013 Inactive prednisone 20 mg tablet RxNorm: 120007 1 Tablet(s) PO BID 03/30/2014 03/29/2014 Inactive AttnRPh: Saving apply/adjudicate RxGRP:S G20 RxBIN:[id number] RxPCN: ID#:[id number]: Saving apply/adjudicate RxGRP:SG20 RxBIN:[id number] RxPCN: ID#:[id number] Soma 350 mg tablet RxNorm: 186170 1 Tablet(s) PO TID prn spasm 01/2310/08/2010 Inactive Lancets,Ultra Thin RxNorm: Miscellaneous Use to test blood sugar daily and as needed (Dx: E11.65) 02/28/2018 02/27/2018 Inactive pantoprazole 40 mg tablet,delayed release RxNorm: 396791 1 Tabl et(s) PO QD 08/21/2017 08/20/2017 Inactive Janumet XR 100 mg-1,000 mg tablet,extended release RxNorm: 1 611944 2 Tablet(s) PO QD 01/06/2014 01/05/2014 Inactive Contour Meter RxNorm: miscellaneous 02/27/2018 02/26/2018 Inactive Synthroid 200 mcg Tab RxNorm: 689715 1 Tablet(s) PO QD 11/24/200907/2009 Inactive Kombiglyze XR 5 mg-500 mg tablet,extended release RxNorm: 10 90051 1 Tablet(s) PO QD 05/07/2013 05/06/2013 Inactive Zithromax Z-Isaiah 250 mg tablet RxNorm: 195712 Tablet(s) PO as di rected 05/14/2013 05/13/2013 Inactive AttnRPh: Saving appl y/adjudicate RxGRP:SG20 RxBIN:[id number] RxPCN: ID#:[id number] Fish Oil 1,000 mg capsule RxNorm: 3 Capsule(s) PO QD 04/04/2017 Inactive Lasix Oral RxNorm: Oral 03/30/2014 03/29/2014 Inactive loratadine 10 mg tablet RxNorm: 860208 1 Tablet(s) PO QD 08/20/2017 0 08/19/2017 Inactive Vitamin D 5,000 unit Tab RxNorm: 1 Tablet(s) PO twice a week 1 08/07/2009 06/05/2010 Inactive permethrin 5 % Topical Cream RxNorm: 788725 TOP Use as directed 02/03/2013 Inactive Gabapentin 100 mg Tab RxNorm: 622474 1 Tablet(s) PO BID 04/12/2010 Inactive Voltaren 1 % topical gel RxNorm: 923611 TOP as needed 06/23/201805/26 Inactive Gabapentin 300 mg Cap RxNorm: 585525 1 Capsule(s) PO BID 07/12/2011 0 07/11/2011 Inactive Contour Test Strips RxNorm: Miscellaneous Test blood sug ar daily (Dx: E11.65) 02/28/2018 02/27/2018 Inactive Promethazine 25 mg Tab RxNorm: 236466 1 Tablet(s) PO Q6 -8H As needed for nausea and vomiting. 10/09/2010 10/08/2010 Inactive propranolol 20 mg tablet RxNorm: 114065 1 Tablet(s) PO BID 03/17/20 18 03/16/2018 Inactive Vitamin D 50,000 unit Cap RxNorm: 6288672 Capsule(s) PO 2 weekly 06/05/2010 Inactive Synthroid 175 mcg Tab RxNorm: 179855 1 Tablet(s) PO QD 07/12/2011 Inactive triamcinolone acetonide 0.1 % Ointment RxNorm: 9141325 T OP TID apply three times a day (sparingly) as needed for itching 04/04/2017 04/03/2017 Inactive Ultram 50 mg Tab RxNorm: 580255 1-2 Tablet(s) PO QID prn pain 03/2203/22/2011 Inactive Topamax 100 mg Tab RxNorm: 952914 1 Tablet(s) PO BID 10/04/200910/03 Inactive Vitamin D3 1000 units Capsule RxNorm: 3 Capsule(s) PO QD 0 06/05/2010 Inactive Singulair 10 mg tablet RxNorm: 332331 1 Tablet(s) PO QD 06/23/2018 Inactive Medication [...] Date S [facility] Location SARS-CoV2 [id number] SARS-CoV2 PCR Detected 07/08/2021 Unkno wn GFR CALC 8492244 GFR Afr Amr >60 mL/min 01/26/2019 Unknow n GFR CALC 6434917 GFR Non Afr Amr >60 mL/min 01/26/2019 Un known COMPLETE BLOOD COUNT [id number] WBC 7.0 10e9/L 01/27/20 19 Unknown COMPLETE BLOOD COUNT [id number] RBC 4.52 10e12/L 2018 Unknown COMPLETE BLOOD COUNT [id number] HEMOGLOBIN 14.0 g/dL 01/27/20 19 Unknown COMPLETE BLOOD COUNT [id number] HEMATOCRIT 42.6 % 01/27/20 19 Unknown COMPLETE BLOOD COUNT 5096504 MCV 94.2 fL 9 Unknown COMPLETE BLOOD COUNT 3420986 MCH 31.0 pg 9 Unknown COMPLETE BLOOD COUNT 1000943 MCHC 32.9 g/dL 9 Unknown COMPLETE BLOOD COUNT 9534934 PLATELET COUNT 272 10e9/L 10/2018 Unknown COMPLETE BLOOD COUNT [id number] Mean Plt Volume 10.4 fL 10/2018 Unknown COMPLETE BLOOD COUNT [id number] Neut Auto 53.9 % 9 Unknown COMPLETE BLOOD COUNT 4879815 Lymph Auto 33.8 % 01/27/20 19 Unknown COMPLETE BLOOD COUNT 4507765 [place] Auto 9.1 % 9 Unknown COMPLETE BLOOD COUNT 3125699 RDW 13.2 % 9 Unknown COMPLETE BLOOD COUNT 4558598 Eos Auto 2.3 % 9 Unknown COMPLETE BLOOD COUNT 3472406 Baso Auto 0.9 % 9 Unknown COMPLETE BLOOD COUNT 0612827 Neutrophil Abs 3.77 10e9/L Unknown COMPLETE BLOOD COUNT 2005110 Lymphocyte Abs 2.37 10e9/L Unknown COMPLETE BLOOD COUNT [id number] Monocyte Abs 0.64 10e9/L 10/2018 Unknown COMPLETE BLOOD COUNT 7196686 Eosinophil Abs 0.16 10e9/L Unknown COMPLETE BLOOD COUNT 4307959 RDW-SD 44.2 fL 9 Unknown COMPLETE BLOOD COUNT [id number] Basophil Abs 0.06 10e9/L 10/2018 Unknown COMPREHENSIVE METABOLIC 25745 AST 15 U/L 2018 Unknown COMPREHENSIVE METABOLIC 42723 ALT 18 U/L 2018 Unknown COMPREHENSIVE METABOLIC 72446 BUN 10 mg/dL 2018 Unknown COMPREHENSIVE METABOLIC 48087 ALBUMIN 4.1 g/dL 2018 Unknown COMPREHENSIVE METABOLIC 32057 CHLORIDE 100 mmol/L 01/26 Unknown COMPREHENSIVE METABOLIC 78185 Bili Total 0.4 mg/dL 01/26 Unknown COMPREHENSIVE METABOLIC 54368 ALK PHOS 57 U/L 2018 Unknown COMPREHENSIVE METABOLIC 14565 SODIUM 136 mmol/L 01/26 Unknown COMPREHENSIVE METABOLIC 80508 CREATININE 0.71 mg/dL 10/2018 Unknown COMPREHENSIVE METABOLIC 76901 CALCIUM 9.3 mg/dL 2018 Unknown COMPREHENSIVE METABOLIC 39400 POTASSIUM 4.4 mmol/L 01/26 Unknown COMPREHENSIVE METABOLIC 79060 Total Protein 6.7 g/dL Unknown COMPREHENSIVE METABOLIC 48339 Glucose 88 mg/dL 2018 Unknown COMPREHENSIVE METABOLIC 78546 Bicarbonate 27 mmol/L 10/2018 Unknown COMPREHENSIVE METABOLIC 58023 AGAP 9 mmol/L 2018 Unknown Procedures Procedure Codes Date RML URINE CULTURE/ COLONY COUNT CPT-4: 94663 06/29/19 23 THER/PROPH/DIAG INJ SC/IM CPT-4: 90397 04/18/2022 KETOROLAC TROMETHAMINE INJ CPT-4: J1885 04/18/2022 FLU 64 + VACC AIIV4 NO PRSRV 0.5ML IM CPT-4: 09657 ADMIN INFLUENZA VIRUS VAC CPT-4: G0008 04/05/2022 PPPS, subseq visit CPT-4: G0439 02/06/2022 DEXAMETHASONE SODIUM PHOS CPT-4: J1100 11/09/2021 THER/PROPH/DIAG INJ SC/IM CPT-4: 49183 11/09/2021 TRIAMCINOLONE ACET INJ NOS CPT-4: J3301 11/09/2021 CEFTRIAXONE SODIUM INJECTION CPT-4: J0696 10/30/2021 THER/PROPH/DIAG INJ SC/IM CPT-4: 20945 10/30/2021 INFLUENZA ASSAY W/OPTIC CPT-4: 94878 10/30/2021 THER/PROPH/DIAG INJ SC/IM CPT-4: 07030 09/05/2021 TRIAMCINOLONE ACET INJ NOS CPT-4: J3301 09/05/2021 INFLUENZA ASSAY W/OPTIC CPT-4: 50673 07/04/2021 SARS-CoV2 CPT-4: 9996627 07/04/2021 FLU VACC PRSV FREE INC ANTIG 65 AND OLDER CPT-4: 19566 03/29/2021 FLU VACC PRSV FREE INC ANTIG 65 AND OLDER CPT-4: 16598 03/29/2021 ADMIN INFLUENZA VIRUS VAC CPT-4: G0008 03/29/2021 DRAINAGE OF SKIN ABSCESS CPT-4: 09666 02/08/2021 PPPS, subseq visit CPT-4: G0439 01/03/2021 OCCULT BLOOD FECES CPT-4: 17089 07/13/2020 RML URINE CULTURE/ COLONY COUNT CPT-4: 97351 05/17/20 URINALYSIS NONAUTO W/O SCOPE CPT-4: 65563 05/17/2020 CEFTRIAXONE SODIUM INJECTION CPT-4: J0696 03/07/2020 THER/PROPH/DIAG INJ SC/IM CPT-4: 14461 03/07/2020 THER/PROPH/DIAG INJ SC/IM CPT-4: 83124 03/07/2020 METHYLPREDNISOLONE INJECTION CPT-4: J2930 03/07/2020 PPPS, subseq visit CPT-4: G0439 12/21/2019 RML URINE CULTURE/ COLONY COUNT CPT-4: 69315 09/11/19 20 CEFTRIAXONE SODIUM INJECTION CPT-4: J0696 09/08/2019 THER/PROPH/DIAG INJ SC/IM CPT-4: 68363 09/08/2019 THER/PROPH/DIAG INJ SC/IM CPT-4: 48930 09/07/2019 CEFTRIAXONE SODIUM INJECTION CPT-4: J0696 09/07/2019 THER/PROPH/DIAG INJ SC/IM CPT-4: 31560 09/07/2019 URINALYSIS NONAUTO W/O SCOPE CPT-4: 58558 09/02/2019 RML URINE CULTURE/ COLONY COUNT CPT-4: 89574 09/02/19 20 FLU VACC PRSV FREE INC ANTIG 65 AND OLDER CPT-4: 96788 04/15/2019 URINALYSIS NONAUTO W/O SCOPE CPT-4: 90376 04/15/2019 RML URINE CULTURE/ COLONY COUNT CPT-4: 33638 04/15/20 19 ADMIN INFLUENZA VIRUS VAC CPT-4: G0008 04/15/2019 FLU VACC PRSV FREE INC ANTIG 65 AND OLDER CPT-4: 64954 04/15/2019 THER/PROPH/DIAG INJ SC/IM CPT-4: 79262 04/07/2019 TRIAMCINOLONE ACET INJ NOS CPT-4: J3301 04/07/2019 DEXAMETHASONE SODIUM PHOS CPT-4: J1100 04/07/2019 URINALYSIS NONAUTO W/O SCOPE CPT-4: 89361 03/18/2019 RML URINE CULTURE/ COLONY COUNT CPT-4: 37681 03/18/20 19 ROUTINE VENIPUNCTURE CPT-4: 55908 01/26/2019 RML COMPREHEN METABOLIC PANEL CPT-4: 09096 01/26/2019 RML COMPLETE CBC W/AUTO DIFF WBC CPT-4: 18808 019 RML URINE CULTURE/ COLONY COUNT CPT-4: 32390 01/27/20 19 URINALYSIS NONAUTO W/O SCOPE CPT-4: 06288 01/26/2019 THER/PROPH/DIAG INJ SC/IM CPT-4: 34984 01/08/2019 TRIAMCINOLONE ACET INJ NOS CPT-4: J3301 01/08/2019 THER/PROPH/DIAG INJ SC/IM CPT-4: 85663 01/06/2019 METHYLPREDNISOLONE INJECTION CPT-4: J2930 01/06/2019 AIRWAY INHALATION TREATMENT CPT-4: 48647 01/06/2019 RML URINE CULTURE/ COLONY COUNT CPT-4: 60997 01/07/20 19 PPPS, subseq visit CPT-4: G0439 12/11/2018 URINALYSIS NONAUTO W/O SCOPE CPT-4: 72720 12/11/2018 RML URINE CULTURE/ COLONY COUNT CPT-4: 93888 12/12/19 19 CULTURE OTHR SPECIMN AEROBIC CPT-4: 35372 12/11/2018 OCCULT BLOOD FECES CPT-4: 65008 12/11/2018 THER/PROPH/DIAG INJ SC/IM CPT-4: 03407 10/07/2018 TRIAMCINOLONE ACET INJ NOS CPT-4: J3301 10/07/2018 DEXAMETHASONE SODIUM PHOS CPT-4: J1100 10/07/2018 THER/PROPH/DIAG INJ SC/IM CPT-4: 38018 10/16/2017 TRIAMCINOLONE ACET INJ NOS CPT-4: J3301 10/16/2017 THER/PROPH/DIAG INJ SC/IM CPT-4: 09889 10/16/2017 KETOROLAC TROMETHAMINE INJ CPT-4: J1885 10/16/2017 INFLUENZA ASSAY W/OPTIC CPT-4: 73198 07/25/2017 FLU VACC PRSV FREE INC ANTIG 65 AND OLDER CPT-4: 23724 04/04/2017 PNEUMOCOCCAL VACC 23 DANAY IM CPT-4: 00290 04/04/2017 PPPS, subseq visit CPT-4: G0439 04/04/2017 ADMIN INFLUENZA VIRUS VAC CPT-4: G0008 04/04/2017 ADMIN PNEUMOCOCCAL VACCINE CPT-4: G0009 04/04/2017 URINALYSIS NONAUTO W/O SCOPE CPT-4: 89398 06/05/2016 FLU VACC PRSV FREE INC ANTIG 65 AND OLDER CPT-4: 71526 05/01/2016 ADMIN INFLUENZA VIRUS VAC CPT-4: G0008 05/01/2016 URINALYSIS NONAUTO W/O SCOPE CPT-4: 27502 11/08/2015 URINALYSIS NONAUTO W/O SCOPE CPT-4: 09744 03/28/2015 ADMIN INFLUENZA VIRUS VAC CPT-4: G0008 03/28/2015 FLU VACC PRSV FREE INC ANTIG 65 AND OLDER CPT-4: 54941 03/28/2015 PRESCRIP TRANSMIT VIA ERX SY CPT-4: G8553 03/28/2015 PNEUMOCOCCAL VACC 13 DANAY IM CPT-4: 84560 02/08/2015 ADMIN PNEUMOCOCCAL VACCINE CPT-4: G0009 02/08/2015 PRESCRIP TRANSMIT VIA ERX SY CPT-4: G8553 02/08/2015 RML URINE CULTURE/ COLONY COUNT CPT-4: 49037 01/12/20 15 URINALYSIS NONAUTO W/O SCOPE CPT-4: 48432 01/11/2015 PRESCRIP TRANSMIT VIA ERX SY CPT-4: G8553 01/11/2015 PRESCRIP TRANSMIT VIA ERX SY CPT-4: G8553 11/24/2014 URINALYSIS NONAUTO W/O SCOPE CPT-4: 15014 10/27/2014 [facility] URINE CULTURE/ COLONY COUNT CPT-4: 15626 10/28/19 15 PRESCRIP TRANSMIT VIA ERX SY CPT-4: G8553 10/27/2014 CEFTRIAXONE SODIUM INJECTION CPT-4: J0696 09/23/2014 THER/PROPH/DIAG INJ SC/IM CPT-4: 92304 09/23/2014 URINALYSIS NONAUTO W/O SCOPE CPT-4: 42625 09/23/2014 RML URINE CULTURE/ COLONY COUNT CPT-4: 39016 09/24/19 15 PRESCRIP TRANSMIT VIA ERX SY CPT-4: G8553 09/23/2014 URINALYSIS NONAUTO W/O SCOPE CPT-4: 21492 03/30/2014 RML URINE CULTURE/ COLONY COUNT CPT-4: 08071 03/30/20 14 PRESCRIP TRANSMIT VIA ERX SY CPT-4: G8553 03/30/2014 PRESCRIP TRANSMIT VIA ERX SY CPT-4: G8553 11/24/2013 PRESCRIP TRANSMIT VIA ERX SY CPT-4: G8553 06/29/2013 PRESCRIP TRANSMIT VIA ERX SY CPT-4: G8553 05/26/2013 PRESCRIP TRANSMIT VIA ERX SY CPT-4: G8553 04/23/2013 THER/PROPH/DIAG INJ SC/IM CPT-4: 73335 03/05/2013 KETOROLAC TROMETHAMINE INJ CPT-4: J1885 03/05/2013 PRESCRIP TRANSMIT VIA ERX SY CPT-4: G8553 11/27/2012 PRESCRIP TRANSMIT VIA ERX SY CPT-4: G8553 11/11/2012 PRESCRIP TRANSMIT VIA ERX SY CPT-4: G8553 09/03/2012 PRESCRIP TRANSMIT VIA ERX SY CPT-4: G8553 07/23/2012 PRESCRIP TRANSMIT VIA ERX SY CPT-4: G8553 05/20/2012 PRESCRIP TRANSMIT VIA ERX SY CPT-4: G8553 04/04/2012 DESTRUCT PREMALG LESION (Cryosurgery) CPT-4: 98157 PRESCRIP TRANSMIT VIA ERX SY CPT-4: G8553 01/02/2012 PRESCRIP TRANSMIT VIA ERX SY CPT-4: G8553 09/04/2011 URINALYSIS NONAUTO W/O SCOPE CPT-4: 84311 07/31/2011 PRESCRIP TRANSMIT VIA ERX SY CPT-4: G8553 07/12/2011 PRESCRIP TRANSMIT VIA ERX SY CPT-4: G8553 05/09/2011 THER/PROPH/DIAG INJ SC/IM CPT-4: 44017 05/02/2011 KETOROLAC TROMETHAMINE INJ CPT-4: J1885 05/02/2011 PRESCRIP TRANSMIT VIA ERX SY CPT-4: G8553 04/25/2011 CUR TOBACCO NON-USER CPT-4: G8457 04/04/2011 PRESCRIP TRANSMIT VIA ERX SY CPT-4: G8553 04/04/2011 DRAIN/INJECT JOINT/BURSA CPT-4: 32059 03/01/2011 METHYLPREDNISOLONE 40 MG INJ CPT-4: J1030 03/01/2011 TRIAMCINOLONE ACET INJ NOS CPT-4: J3301 03/01/2011 DRAIN/INJECT JOINT/BURSA CPT-4: 58815 01/04/2011 METHYLPREDNISOLONE 40 MG INJ CPT-4: J1030 01/04/2011 TRIAMCINOLONE ACET INJ NOS CPT-4: J3301 01/04/2011 PRESCRIP TRANSMIT VIA ERX SY CPT-4: G8553 12/07/2010 PRESCRIP TRANSMIT VIA ERX SY CPT-4: G8553 10/09/2010 PRESCRIP TRANSMIT VIA ERX SY CPT-4: G8553 06/06/2010 DRAIN/INJECT JOINT/BURSA CPT-4: 91735 04/12/2010 TRIAMCINOLONE ACET INJ NOS CPT-4: J3301 04/12/2010 METHYLPREDNISOLONE 80 MG INJ CPT-4: J1040 04/12/2010 PRESCRIP TRANSMIT VIA ERX SY CPT-4: G8553 03/20/2010 THER/PROPH/DIAG INJ SC/IM CPT-4: 58922 01/30/2010 KETOROLAC TROMETHAMINE INJ CPT-4: J1885 01/30/2010 PRESCRIP TRANSMIT VIA ERX SY CPT-4: G8553 01/30/2010 DRAIN/INJECT JOINT/BURSA CPT-4: 85766 10/26/2009 TRIAMCINOLONE ACET INJ NOS CPT-4: J3301 10/26/2009 METHYLPREDNISOLONE 80 MG INJ CPT-4: J1040 10/26/2009 DRAINAGE OF SKIN ABSCESS CPT-4: 05579 10/04/2009 Vital Signs Date Vital 08/30/2022 Blood Pressure 1: 124/74 Code: 8480-6 Heart Rate 1: 74 bpm Respiratory Rate: 20 bpm SpO2: 96% Temperature: 36.3 (C) / 97.3 (F) We ight: 224 lbs Code: 96847-2 08/07/2022 Blood Pressure 1: 126/74 Code: 8480-6 Heart Rate 1: 73 bpm Respiratory Rate: 20 bpm SpO2: 97% Temperature: 36.2 (C) / 97.1 (F) We ight: 222 lbs Code: 06570-0 06/29/2022 Blood Pressure 1: 132/73 Code: 8480-6 BMI: 36.7 Code: 73871-6 Heart Rate 1: 74 bpm Height: 5'6" Code: 8302-2 SpO2: 96% Temperature: 3 6.4 (C) / 97.6 (F) Weight: 226 lbs Code: 17378-3 05/28/2022 Blood Pressure 1: 129/78 Code: 8480-6 BMI: 37.7 Code: 95051-1 Heart Rate 1: 72 bpm Height: 5'6" Code: 8302-2 SpO2: 95% Temperature: 3 6.2 (C) / 97.1 (F) Weight: 232 lbs Code: 46863-6 05/10/2022 Blood Pressure 1: 133/75 Code: 8480-6 BMI: 38.3 Code: 39709-1 Heart Rate 1: 68 bpm Height: 5'6" Code: 8302-2 SpO2: 98% Temperature: 3 6.2 (C) / 97.1 (F) Weight: 236 lbs Code: 55545-6 04/18/2022 Blood Pressure 1: 118/70 Code: 8480-6 Heart Rate 1: 86 bpm Respiratory Rate: 20 bpm SpO2: 96% Temperature: 36.6 (C) / 97.8 (F) We ight: 238 lbs Code: 39626-2 02/15/2022 Blood Pressure 1: 120/82 Code: 8480-6 Heart Rate 1: 88 bpm Respiratory Rate: 20 bpm SpO2: 98% Temperature: 36.1 (C) / 97.0 (F) We ight: 237 lbs Code: 65030-0 02/06/2022 Blood Pressure 1: 124/80 Code: 8480-6 BMI: 39.4 Code: 63157-8 Heart Rate 1: 76 bpm Height: 5'6" Code: 8302-2 Respiratory Rate: 20 bpm SpO2: 98% Temperature: 36.6 (C) / 97.9 (F) Weight: 242 lbs Code: 78475-7 02/01/2022 Blood Pressure 1: 144/100 Code: 8480-6 Heart Rat e 1: 108 bpm Respiratory Rate: 22 bpm SpO2: 96% Temperature: 36.4 (C) / 97.5 (F) 11/29/2021 Blood Pressure 1: 128/80 Code: 8480-6 Heart Rate 1: 56 bpm Respiratory Rate: 20 bpm SpO2: 97% Temperature: 36.7 (C) / 98.1 (F) We ight: 242 lbs Code: 73812-8 11/22/2021 Blood Pressure 1: 118/80 Code: 8480-6 Heart Rate 1: 84 bpm Respiratory Rate: 20 bpm SpO2: 99% Temperature: 36.3 (C) / 97.4 (F) 11/21/2021 Blood Pressure 1: 132/80 Code: 8480-6 Heart Rate 1: 98 bpm Respiratory Rate: 20 bpm SpO2: 99% Weight: 238 lbs Code: 17964 -7 11/09/2021 Blood Pressure 1: 136/86 Code: 8480-6 Heart Rate 1: 68 bpm Respiratory Rate: 20 bpm SpO2: 95% Temperature: 36.4 (C) / 97.5 (F) We ight: 244 lbs Code: 19597-6 10/31/2021 Blood Pressure 1: 128/80 Code: 8480-6 Heart Rate 1: 80 bpm Respiratory Rate: 28 bpm SpO2: 93% Temperature: 38.0 (C) / 100. 4 (F) 10/30/2021 Blood Pressure 1: 136/82 Code: 8480-6 Heart Rate 1: 120 bpm Respiratory Rate: 24 bpm SpO2: 95% Temperature: 38.0 (C) / 100. 4 (F) 09/05/2021 Blood Pressure 1: 118/84 Code: 8480-6 BMI: 38.5 Code: 46359-7 Heart Rate 1: 72 bpm Height: 5'7" Code: 8302-2 Respiratory Rate: 20 bpm SpO2: 95% Temperature: 36.3 (C) / 97.4 (F) Weight: 246 lbs Code: 10960-4 08/24/2021 Blood Pressure 1: 132/84 Code: 8480-6 Heart Rate 1: 76 bpm Respiratory Rate: 19 bpm SpO2: 98% Temperature: 36.7 (C) / 98.1 (F) We ight: Code: 75851-9 03/01/2021 Blood Pressure 1: 90/52 Code: 8480-6 Heart Rate 1: 66 bpm Respiratory Rate: 22 bpm SpO2: 97% 02/08/2021 Blood Pressure 1: 132/75 Code: 8480-6 Heart Rate 1: 74 bpm Respiratory Rate: 18 bpm SpO2: 98% Temperature: 36.3 (C) / 97.3 (F) We ight: 247 lbs Code: 03270-7 01/19/2021 Blood Pressure 1: 126/76 Code: 8480-6 Heart Rate 1: 76 bpm Respiratory Rate: 20 bpm SpO2: 98% Temperature: 37.1 (C) / 98.8 (F) We ight: 244 lbs Code: 32685-9 01/03/2021 Blood Pressure 1: 124/64 Code: 8480-6 BMI: 38.5 Code: 60912-3 Heart Rate 1: 76 bpm Height: 5'7" Code: 8302-2 Respiratory Rate: 20 bpm SpO2: 96% Temperature: 36.4 (C) / 97.6 (F) Weight: 246 lbs Code: 09607-1 11/29/2020 Blood Pressure 1: 119/68 Code: 8480-6 Heart Rate 1: 73 bpm Respiratory Rate: 20 bpm SpO2: 95% Temperature: 36.1 (C) / 96.9 (F) We ight: 245 lbs Code: 28563-6 09/29/2020 Blood Pressure 1: 136/79 Code: 8480-6 Heart Rate 1: 67 bpm Respiratory Rate: 15 bpm SpO2: 98% Temperature: 36.2 (C) / 97.1 (F) We ight: 237 lbs Code: 57029-0 09/19/2020 Blood Pressure 1: 135/82 Code: 8480-6 Heart Rate 1: 76 bpm Respiratory Rate: 17 bpm SpO2: 96% Temperature: 36.6 (C) / 97.8 (F) We ight: 238 lbs Code: 60180-6 08/10/2020 Blood Pressure 1: 126/82 Code: 8480-6 Heart Rate 1: 60 bpm Respiratory Rate: 20 bpm SpO2: 96% Temperature: 36.3 (C) / 97.3 (F) We ight: 238 lbs Code: 07908-9 08/01/2020 Temperature: 36.6 (C) / 97.8 (F) 07/13/2020 Blood Pressure 1: 132/80 Code: 8480-6 Heart Rate 1: 76 bpm Respiratory Rate: 20 bpm SpO2: 97% Temperature: 36.2 (C) / 97.2 (F) We ight: 228 lbs Code: 58369-1 07/05/2020 Temperature: 35.9 (C) / 96.7 (F) 06/22/2020 Blood Pressure 1: 134/82 Code: 8480-6 Heart Rate 1: 60 bpm Respiratory Rate: 20 bpm SpO2: 96% Temperature: 36.4 (C) / 97.6 (F) We ight: 235 lbs Code: 84763-4 05/17/2020 Blood Pressure 1: 141/72 Code: 8480-6 Heart Rate 1: 78 bpm Respiratory Rate: 16 bpm SpO2: 98% Temperature: 36.3 (C) / 97.3 (F) We ight: 232 lbs Code: 24186-6 03/14/2020 Blood Pressure 1: 126/92 Code: 8480-6 Heart Rate 1: 72 bpm Respiratory Rate: 22 bpm SpO2: 96% Temperature: 36.3 (C) / 97.4 (F) We ight: 225 lbs Code: 20891-5 03/07/2020 Blood Pressure 1: 124/86 Code: 8480-6 Heart Rate 1: 72 bpm Respiratory Rate: 24 bpm SpO2: 93% Temperature: 36.2 (C) / 97.1 (F) We ight: 227 lbs Code: 07073-9 12/21/2019 Blood Pressure 1: 114/72 Code: 8480-6 BMI: 36.2 Code: 64495-4 Heart Rate 1: 60 bpm Height: 5'7" Code: 8302-2 Respiratory Rate: 20 bpm SpO2: 97% Temperature: 36.7 (C) / 98.1 (F) Weight: 231 lbs Code: 96597-8 09/02/2019 Blood Pressure 1: 138/85 Code: 8480-6 Heart Rate 1: 76 bpm Respiratory Rate: 20 bpm SpO2: 96% Temperature: 36.3 (C) / 97.3 (F) We ight: 226 lbs Code: 77287-2 07/09/2019 Blood Pressure 1: 123/63 Code: 8480-6 BMI: 34.9 Code: 44486-2 Heart Rate 1: 64 bpm Height: 5'7" Code: 8302-2 Respiratory Rate: 17 bpm SpO2: 97% Temperature: 37.0 (C) / 98.6 (F) Weight: 223 lbs Code: 68245-9 04/15/2019 Blood Pressure 1: 110/82 Code: 8480-6 Heart Rate 1: 66 bpm SpO2: 98% Temperature: 36.1 (C) / 96.9 (F) Weight: 223 lbs Code: 73075-0 04/07/2019 Blood Pressure 1: 132/80 Code: 8480-6 Heart Rate 1: 68 bpm Temperature: 36.9 (C) / 98.4 (F) Weight: 222 lbs Code: 67997-4 03/25/2019 Blood Pressure 1: 108/70 Code: 8480-6 Heart Rate 1: 64 bpm Respiratory Rate: 20 bpm SpO2: 96% Temperature: 36.2 (C) / 97.2 (F) We ight: 221 lbs Code: 82610-3 03/18/2019 Blood Pressure 1: 138/82 Code: 8480-6 Heart Rate 1: 74 bpm SpO2: 99% Temperature: 36.1 (C) / 96.9 (F) Weight: 223 lbs Code: 37521-2 01/26/2019 Blood Pressure 1: 138/90 Code: 8480-6 Heart Rate 1: 68 bpm SpO2: 96% Temperature: 35.9 (C) / 96.7 (F) Weight: 227 lbs Code: 18750-8 01/08/2019 Blood Pressure 1: 134/78 Code: 8480-6 BMI: 36.8 Code: 26554-6 Heart Rate 1: 76 bpm Height: 5'7" Code: 8302-2 SpO2: 93% Temperature: 3 6.4 (C) / 97.6 (F) Weight: 235 lbs Code: 47398-3 01/06/2019 Blood Pressure 1: 116/80 Code: 8480-6 Heart Rate 1: 72 bpm Respiratory Rate: 20 bpm SpO2: 98% Temperature: 36.5 (C) / 97.7 (F) We ight: 232 lbs Code: 46121-8 12/11/2018 Blood Pressure 1: 120/82 Code: 8480-6 BMI: 36.2 Code: 46305-7 Heart Rate 1: 67 bpm Height: 5'7" Code: 8302-2 Respiratory Rate: 18 bpm SpO2: 96% Temperature: 35.9 (C) / 96.7 (F) Weight: 231 lbs Code: 11699-7 10/30/2018 Blood Pressure 1: 126/82 Code: 8480-6 Heart Rate 1: 80 bpm Respiratory Rate: 20 bpm SpO2: 96% Temperature: 36.8 (C) / 98.3 (F) We ight: 228 lbs Code: 13643-0 10/07/2018 Blood Pressure 1: 130/90 Code: 8480-6 Heart Rate 1: 76 bpm Respiratory Rate: 24 bpm SpO2: 97% Temperature: 36.0 (C) / 96.8 (F) We ight: 229 lbs Code: 37225-0 06/23/2018 Blood Pressure 1: 132/80 Code: 8480-6 Heart Rate 1: 72 bpm Respiratory Rate: 20 bpm SpO2: 98% Temperature: 36.7 (C) / 98.0 (F) We ight: 233 lbs Code: 47604-5 01/16/2018 Blood Pressure 1: 116/82 Code: 8480-6 Heart Rate 1: 72 bpm Respiratory Rate: 20 bpm SpO2: 96% Temperature: 36.9 (C) / 98.5 (F) We ight: 230 lbs Code: 77460-0 10/16/2017 Blood Pressure 1: 116/74 Code: 8480-6 BMI: 35.1 Code: 03794-7 Heart Rate 1: 76 bpm Height: 5'7" Code: 8302-2 Respiratory Rate: 20 bpm SpO2: 98% Temperature: 36.7 (C) / 98.1 (F) Weight: 224 lbs Code: 62589-4 09/12/2017 Blood Pressure 1: 124/78 Code: 8480-6 BMI: 34.6 Code: 98964-3 Heart Rate 1: 84 bpm Height: 5'7" Code: 8302-2 Respiratory Rate: 20 bpm SpO2: 95% Temperature: 36.6 (C) / 97.8 (F) Weight: 221 lbs Code: 54786-0 08/20/2017 Blood Pressure 1: 126/78 Code: 8480-6 Heart Rate 1: 92 bpm Height: 5'7" Code: 8302-2 Respiratory Rate: 20 bpm SpO2: 96% Temperature: 36 .9 (C) / 98.5 (F) 08/13/2017 Blood Pressure 1: 124/80 Code: 8480-6 BMI: 34.8 Code: 98964-5 Heart Rate 1: 80 bpm Height: 5'7" Code: 8302-2 Respiratory Rate: 20 bpm SpO2: 96% Temperature: 36.7 (C) / 98.0 (F) Weight: 222 lbs Code: 81703-8 07/29/2017 Blood Pressure 1: 114/70 Code: 8480-6 BMI: 34.5 Code: 52615-7 Heart Rate 1: 76 bpm Height: 5'7" Code: 8302-2 Respiratory Rate: 20 bpm SpO2: 97% Temperature: 36.9 (C) / 98.4 (F) Weight: 220 lbs Code: 55262-8 07/25/2017 Blood Pressure 1: 142/76 Code: 8480-6 BMI: 34.9 Code: 35758-9 Heart Rate 1: 92 bpm Height: 5'7" Code: 8302-2 Respiratory Rate: 18 bpm SpO2: 96% Temperature: 36.7 (C) / 98.1 (F) Weight: 223 lbs Code: 33369-2 06/10/2017 Blood Pressure 1: 136/82 Code: 8480-6 BMI: 34.3 Code: 23165-7 Heart Rate 1: 68 bpm Height: 5'7" Code: 8302-2 Respiratory Rate: 20 bpm SpO2: 96% Temperature: 36.7 (C) / 98.0 (F) Weight: 219 lbs Code: 82279-9 05/28/2017 Blood Pressure 1: 136/70 Code: 8480-6 BMI: 34.1 Code: 79427-9 Heart Rate 1: 84 bpm Height: 5'7" Code: 8302-2 Respiratory Rate: 20 bpm SpO2: 95% Temperature: 35.9 (C) / 96.6 (F) Weight: 218 lbs Code: 81642-7 04/04/2017 Blood Pressure 1: 122/78 Code: 8480-6 BMI: 33.4 Code: 03540-1 Heart Rate 1: 68 bpm Height: 5'7" Code: 8302-2 Respiratory Rate: 20 bpm SpO2: 96% Temperature: 36.7 (C) / 98.0 (F) Weight: 213 lbs Code: 16149-6 11/28/2016 Blood Pressure 1: 114/82 Code: 8480-6 BMI: 33.7 Code: 91666-6 Heart Rate 1: 72 bpm Height: 5'7" Code: 8302-2 Respiratory Rate: 20 bpm SpO2: 98% Temperature: 36.4 (C) / 97.6 (F) Weight: 215 lbs Code: 16150-3 06/05/2016 Blood Pressure 1: 104/68 Code: 8480-6 BMI: 33.7 Code: 88898-9 Heart Rate 1: 68 bpm Height: 5'7" Code: 8302-2 Respiratory Rate: 20 bpm SpO2: 96% Temperature: 36.8 (C) / 98.2 (F) Weight: 215 lbs Code: 29315-2 11/08/2015 Blood Pressure 1: 122/70 Code: 8480-6 BMI: 33.8 Code: 99682-6 Heart Rate 1: 80 bpm Height: 5'7" Code: 8302-2 Respiratory Rate: 20 bpm Temperatu re: 36.8 (C) / 98.2 (F) Weight: 216 lbs Code: 23002-8 07/19/2015 Blood Pressure 1: 122/70 Code: 8480-6 BMI: 33.0 Code: 31947-9 Heart Rate 1: 80 bpm Height: 5'7" Code: 8302-2 Respiratory Rate: 18 bpm Temperatu re: 35.9 (C) / 96.6 (F) Weight: 211 lbs Code: 96365-9 03/28/2015 Blood Pressure 1: 124/70 Code: 8480-6 BMI: 31.8 Code: 52657-9 Heart Rate 1: 72 bpm Height: 5'7" Code: 8302-2 Respiratory Rate: 20 bpm Temperatu re: 36.8 (C) / 98.2 (F) Weight: 203 lbs Code: 16139-7 02/08/2015 Blood Pressure 1: 98/58 Code: 8480-6 BMI: 32.1 C ode: 24022-3 Heart Rate 1: 84 bpm Height: 5'7" Code: 8302-2 Respiratory Rate: 20 bpm Temperatu re: 36.7 (C) / 98.0 (F) Weight: 205 lbs Code: 47270-8 01/11/2015 Blood Pressure 1: 118/78 Code: 8480-6 BMI: 32.1 Code: 32245-9 Heart Rate 1: 84 bpm Height: 5'7" Code: 8302-2 Respiratory Rate: 20 bpm Temperatu re: 36.6 (C) / 97.9 (F) Weight: 205 lbs Code: 11999-3 11/24/2014 Blood Pressure 1: 124/80 Code: 8480-6 BMI: 32.0 Code: 53843-1 Heart Rate 1: 76 bpm Height: 5'7" Code: 8302-2 Respiratory Rate: 20 bpm Temperatu re: 36.2 (C) / 97.1 (F) Weight: 204 lbs Code: 22133-2 11/19/2014 Blood Pressure 1: 132/78 Code: 8480-6 BMI: 32.7 Code: 18445-0 Heart Rate 1: 68 bpm Height: 5'7" Code: 8302-2 Respiratory Rate: 20 bpm SpO2: 98% Temperature: 36.7 (C) / 98.0 (F) Weight: 209 lbs Code: 70643-5 10/27/2014 Blood Pressure 1: 118/76 Code: 8480-6 BMI: 32.6 Code: 49582-5 Heart Rate 1: 64 bpm Height: 5'7" Code: 8302-2 Respiratory Rate: 20 bpm Temperatu re: 36.7 (C) / 98.0 (F) Weight: 208 lbs Code: 76973-0 09/23/2014 Blood Pressure 1: 118/68 Code: 8480-6 BMI: 34.3 Code: 17601-2 Heart Rate 1: 78 bpm Height: 5'7" Code: 8302-2 Respiratory Rate: 22 bpm Temperatu re: 36.4 (C) / 97.6 (F) Weight: 219 lbs Code: 44427-9 07/28/2014 Blood Pressure 1: 126/80 Code: 8480-6 BMI: 33.5 Code: 28645-2 Heart Rate 1: 76 bpm Height: 5'7" Code: 8302-2 Respiratory Rate: 20 bpm Temperatu re: 36.4 (C) / 97.6 (F) Weight: 214 lbs Code: 76866-1 03/30/2014 Blood Pressure 1: 128/80 Code: 8480-6 BMI: 35.2 Code: 49738-8 Heart Rate 1: 88 bpm Height: 5'7" Code: 8302-2 Respiratory Rate: 20 bpm Temperatu re: 36.4 (C) / 97.6 (F) Weight: 225 lbs Code: 13474-9 11/24/2013 Blood Pressure 1: 124/82 Code: 8480-6 BMI: 35.6 Code: 47027-5 Heart Rate 1: 80 bpm Height: 5'7" Code: 8302-2 Respiratory Rate: 22 bpm Temperatu re: 36.2 (C) / 97.1 (F) Weight: 227 lbs Code: 83532-1 08/25/2013 Blood Pressure 1: 128/80 Code: 8480-6 BMI: 37.4 Code: 01346-1 Heart Rate 1: 76 bpm Height: 5'7" Code: 8302-2 Respiratory Rate: 20 bpm Temperatu re: 36.6 (C) / 97.9 (F) Weight: 239 lbs Code: 00136-6 06/29/2013 Blood Pressure 1: 106/78 Code: 8480-6 BMI: 38.1 Code: 35045-6 Heart Rate 1: 80 bpm Height: 5'7" Code: 8302-2 Respiratory Rate: 20 bpm Temperatu re: 36.6 (C) / 97.9 (F) Weight: 243 lbs Code: 87845-7 05/26/2013 Blood Pressure 1: 122/80 Code: 8480-6 BMI: 39.3 Code: 56582-3 Heart Rate 1: 80 bpm Height: 5'7" Code: 8302-2 Respiratory Rate: 20 bpm Temperatu re: 36.9 (C) / 98.4 (F) Weight: 251 lbs Code: 19049-0 05/06/2013 Blood Pressure 1: 128/78 Code: 8480-6 BMI: 39.2 Code: 84859-8 Heart Rate 1: 76 bpm Height: 5'7" Code: 8302-2 Respiratory Rate: 22 bpm Temperatu re: 35.8 (C) / 96.4 (F) Weight: 250 lbs Code: 56921-6 04/23/2013 Blood Pressure 1: 132/92 Code: 8480-6 BMI: 39.6 Code: 34778-3 Heart Rate 1: 88 bpm Height: 5'7" Code: 8302-2 Respiratory Rate: 28 bpm SpO2: 97% Temperature: 36.5 (C) / 97.7 (F) Weight: 253 lbs Code: 50568-8 03/31/2013 Blood Pressure 1: 122/80 Code: 8480-6 BMI: 39.0 Code: 15265-9 Heart Rate 1: 84 bpm Height: 5'7" Code: 8302-2 Respiratory Rate: 20 bpm Temperatu re: 36.6 (C) / 97.8 (F) Weight: 249 lbs Code: 80231-6 03/05/2013 Blood Pressure 1: 120/80 Code: 8480-6 BMI: 39.2 Code: 28240-4 Heart Rate 1: 60 bpm Height: 5'7" Code: 8302-2 Respiratory Rate: 22 bpm Temperatu re: 35.9 (C) / 96.6 (F) Weight: 250 lbs Code: 83673-9 02/04/2013 Blood Pressure 1: 124/80 Code: 8480-6 BMI: 38.4 Code: 39013-1 Heart Rate 1: 80 bpm Height: 5'7" Code: 8302-2 Respiratory Rate: 20 bpm Temperatu re: 36.4 (C) / 97.6 (F) Weight: 245 lbs Code: 34738-7 11/27/2012 Blood Pressure 1: 127/83 Code: 8480-6 Te mperature: 36.1 (C) / 96.9 (F) Weight: 243 lbs 2 oz Code: 37798-2 11/11/2012 Blood Pressure 1: 126/82 Code: 8480-6 BMI: 37.4 Code: 16104-3 Heart Rate 1: 80 bpm Height: 5'7" Code: 8302-2 Respiratory Rate: 20 bpm Temperatu re: 36.8 (C) / 98.2 (F) Weight: 239 lbs Code: 81137-2 10/20/2012 Blood Pressure 1: 114/80 Code: 8480-6 BMI: 37.1 Code: 78453-1 Heart Rate 1: 104 bpm Height: 5'7" Code: 8302-2 Respiratory Rate: 20 bpm Temperatu re: 36.9 (C) / 98.4 (F) Weight: 237 lbs Code: 74668-0 09/03/2012 Blood Pressure 1: 118/72 Code: 8480-6 BMI: 37.3 Code: 82862-5 Heart Rate 1: 70 bpm Height: 5'7" Code: 8302-2 Temperature: 35.6 (C) / 96.0 (F) Weight: 238 lbs Code: 59512-4 07/23/2012 Blood Pressure 1: 124/78 Code: 8480-6 BMI: 36.8 Code: 19323-4 Heart Rate 1: 68 bpm Height: 5'7" Code: 8302-2 Temperature: 35.6 (C) / 96.0 (F) Weight: 235 lbs Code: 34788-2 05/20/2012 Blood Pressure 1: 112/70 Code: 8480-6 BMI: 37.1 Code: 59528-7 Heart Rate 1: 76 bpm Height: 5'7" Code: 8302-2 Respiratory Rate: 20 bpm Temperatu re: 36.7 (C) / 98.1 (F) Weight: 237 lbs Code: 30890-9 04/04/2012 Blood Pressure 1: 110/64 Code: 8480-6 BMI: 37.1 Code: 76699-2 Heart Rate 1: 68 bpm Height: 5'7" Code: 8302-2 Temperature: 36.1 (C) / 97.0 (F) Weight: 237 lbs Code: 72266-2 02/20/2012 Blood Pressure 1: 136/78 Code: 8480-6 BMI: 37.1 Code: 55382-3 Heart Rate 1: 72 bpm Height: 5'7" Code: 8302-2 Respiratory Rate: 20 bpm Temperatu re: 36.7 (C) / 98.0 (F) Weight: 237 lbs Code: 50972-1 01/02/2012 Blood Pressure 1: 122/70 Code: 8480-6 BMI: 37.1 Code: 69842-9 Heart Rate 1: 76 bpm Height: 5'7" Code: 8302-2 Respiratory Rate: 20 bpm Temperatu re: 37.0 (C) / 98.6 (F) Weight: 237 lbs Code: 18097-1 09/04/2011 Blood Pressure 1: 120/84 Code: 8480-6 BMI: 35.4 Code: 73904-7 Heart Rate 1: 68 bpm Height: 5'7" Code: 8302-2 Temperature: 30.0 (C) / 86.0 (F) Weight: 226 lbs Code: 13897-7 08/14/2011 Blood Pressure 1: 120/82 Code: 8480-6 BMI: 36.5 Code: 25237-1 Heart Rate 1: 80 bpm Height: 5'7" Code: 8302-2 Temperature: 36.6 (C) / 97.8 (F) Weight: 233 lbs Code: 68243-9 07/31/2011 Blood Pressure 1: 138/86 Code: 8480-6 BMI: 37.0 Code: 98998-0 Heart Rate 1: 94 bpm Height: 5'7" Code: 8302-2 Temperature: 35.4 (C) / 95.7 (F) Weight: 236 lbs Code: 26516-9 07/25/2011 Blood Pressure 1: 128/80 Code: 8480-6 BMI: 37.0 Code: 92242-9 Heart Rate 1: 80 bpm Height: 5'7" Code: 8302-2 Temperature: 35.6 (C) / 96.0 (F) Weight: 236 lbs Code: 34474-0 07/12/2011 Blood Pressure 1: 132/80 Code: 8480-6 BMI: 37.0 Code: 39660-1 Heart Rate 1: 96 bpm Height: 5'7" Code: 8302-2 Respiratory Rate: 20 bpm Temperatu re: 36.3 (C) / 97.3 (F) Weight: 236 lbs Code: 59404-3 05/09/2011 Blood Pressure 1: 106/78 Code: 8480-6 BMI: 36.6 Code: 18076-0 Heart Rate 1: 72 bpm Height: 5'7" Code: 8302-2 Respiratory Rate: 20 bpm Temperatu re: 36.4 (C) / 97.6 (F) Weight: 234 lbs Code: 23361-6 05/02/2011 Blood Pressure 1: 96/72 Code: 8480-6 BMI: 36.6 C ode: 85399-1 Heart Rate 1: 108 bpm Height: 5'7" Code: 8302-2 Respiratory Rate: 24 bpm Temperatu re: 36.7 (C) / 98.0 (F) Weight: 234 lbs Code: 54667-2 04/25/2011 Blood Pressure 1: 120/72 Code: 8480-6 BMI: 36.5 Code: 37827-4 Heart Rate 1: 70 bpm Height: 5'7" Code: 8302-2 Temperature: 36.7 (C) / 98.0 (F) Weight: 233 lbs Code: 36309-0 04/04/2011 Blood Pressure 1: 126/92 Code: 8480-6 BMI: 36.5 Code: 14919-2 Heart Rate 1: 84 bpm Height: 5'7" Code: 8302-2 Respiratory Rate: 20 bpm Temperatu re: 36.2 (C) / 97.2 (F) Weight: 233 lbs Code: 00873-8 03/01/2011 Blood Pressure 1: 132/78 Code: 8480-6 Heart Rate 1: 88 bpm Temperature: 36.8 (C) / 98.2 (F) Weight: 231 lbs Code: 42797-8 01/04/2011 Blood Pressure 1: 122/78 Code: 8480-6 BMI: 37.0 Code: 53300-3 Heart Rate 1: 80 bpm Height: 5'7" Code: 8302-2 Temperature: 37.0 (C) / 98.6 (F) Weight: 236 lbs Code: 47928-5 12/07/2010 Blood Pressure 1: 132/92 Code: 8480-6 Heart Rate 1: 98 bpm Temperature: 36.2 (C) / 97.2 (F) Weight: 237 lbs Code: 09120-4 10/09/2010 Blood Pressure 1: 128/80 Code: 8480-6 Heart Rate 1: 72 bpm Temperature: 36.5 (C) / 97.7 (F) Weight: 244 lbs Code: 73335-8 08/07/2010 Blood Pressure 1: 114/80 Code: 8480-6 Heart Rate 1: 72 bpm Temperature: 36.2 (C) / 97.1 (F) Weight: 245 lbs Code: 41307-4 06/06/2010 Blood Pressure 1: 132/86 Code: 8480-6 Heart Rate 1: 80 bpm Temperature: 36.8 (C) / 98.2 (F) Weight: 242 lbs Code: 79505-8 04/12/2010 Blood Pressure 1: 126/82 Code: 8480-6 Heart Rate 1: 72 bpm Temperature: 36.8 (C) / 98.2 (F) Weight: 237 lbs Code: 20469-4 03/20/2010 Blood Pressure 1: 124/78 Code: 8480-6 Heart Rate 1: 76 bpm Temperature: 36.1 (C) / 97.0 (F) Weight: 239 lbs Code: 15925-7 01/30/2010 Blood Pressure 1: 118/80 Code: 8480-6 Heart Rate 1: 84 bpm Temperature: 37.1 (C) / 98.7 (F) Weight: 239 lbs Code: 54221-1 01/09/2010 Blood Pressure 1: 120/72 Code: 8480-6 BMI: 36.8 Code: 67723-7 Heart Rate 1: 80 bpm Height: 5'7" Code: 8302-2 Temperature: 36.1 (C) / 97.0 (F) Weight: 235 lbs Code: 40475-8 11/07/2009 Blood Pressure 1: 140/36 Cod e: 8480-6 10/26/2009 Blood Pressure 1: 126/82 Code: 8480-6 BMI: 36.9 Code: 66144-8 Heart Rate 1: 84 bpm Height: 5'7" Code: 8302-2 Temperature: 36.5 (C) / 97.7 (F) Weight: 234 lbs Code: 61426-3 10/17/2009 Blood Pressure 1: 140/88 Code: 8480-6 BMI: 36.3 Code: 87373-7 Heart Rate 1: 88 bpm Height: 5'7" Code: 8302-2 Temperature: 36.7 (C) / 98.0 (F) Weight: 232 lbs Code: 39289-7 10/04/2009 Blood Pressure 1: 140/90 Code: 8480-6 BMI: 36.3 Code: 42553-8 Heart Rate 1: 84 bpm Height: 5'7" Code: 8302-2 Temperature: 36.4 (C) / 97.6 (F) Weight: 232 lbs Code: 45918-9 09/21/2009 Blood Pressure 1: 136/82 Code: 8480-6 BMI: 36.3 Code: 26071-3 Heart Rate 1: 88 bpm Height: 5'7" Code: 8302-2 Temperature: 35.8 (C) / 96.4 (F) Weight: 232 lbs Code: 39047-4 Functional Status No Functional Status data Reason [...] well woman exam (65+ years) 01/03/2021 [facility] high blood pressure 01/03/2021 hyperlipidemia 01/03/2021 diabetes [...] 09/04/2011 chest congestion 09/04/2011 follow up 08/14/2011 [facility] cheilitis 08/14/2011 venous thrombosis 08/14/2011 abdominal pain [...] M51.37] Diagnosis: Cervicalgia[ICD10: M54.2] Marlene MAGANAR DO [facility] [address] [place] [address] CPT-4: 05992 08/30/2022 ([id number]) OFFICE/OUTPATIENT VISIT EST Diagnosis: Hypothyroidism[ICD10: E03.9] Diagnosis: Essential (primary) hypertension[ICD10: I10] Diagnosis: Mixed hyperlipidemia[ICD10: E78.2] Diagnosis: Stress at home[ICD10: F43.9] Jayna VANESSA [address] [address] CPT-4: 31641 08/07/2022 ([id number]) OFFICE/OUTPATIENT VISIT EST Diagnosis: Acute cystitis[ICD10: N30.00] Marlene VANESSA [address] [address] CPT-4: 08392 06/29/2022 ([id number]) OFFICE/OUTPATIENT VISIT EST Diagnosis: Depression[ICD10: F32.A] Diagnosis: Hypothyroidism[ICD10: E03.9] Jayna VANESSA [address] [address] CPT-4: 26226 05/28/2022 ([id number]) OFFICE/OUTPATIENT VISIT EST Diagnosis: Depression[ICD10: F32.A] Diagnosis: Fatigue[ICD10: R53.83] Diagnosis: Hypothyroidism[ICD10: E03.9] Diagnosis: Hyperglycemia[ICD10: R73.9] Jayna Partida [place]ALO [address] [address] CPT-4: 18717 05/10/2022 ([id number]) OFFICE/OUTPATIENT VISIT EST Diagnosis: Migraine, intractable[ICD10: G43.919] Marlene VANESSA [address] [address] CPT-4: 76784 04/18/2022 ([id number]) NURSE/OUTPATIENT VISIT EST Diagnosis: FLU VACCINE[ICD10: Z23] Jayna JIANG [address] [address] CPT-4: 82718 04/05/2022 ([id number]) OFFICE/OUTPATIENT VISIT EST Diagnosis: Allergic rhinitis[ICD10: J30.9] Diagnosis: Acute sinusitis[ICD10: J01.90] 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] Jayna VANESSA [address] [address] CPT-4: 15545 02/15/2022 ([id number]) Annual depression screening, 15 minutes Diagnosis: Encounter for general adult medical examination without abnormal findings[ICD10: Z00.00] Diagnosis: Essential (primary) hypertension[ICD10: I10] Diagnosis: Mixed hyperlipidemia[ICD10: E78.2] Diagnosis: Hypothyroidism, unspecified[ICD10: E03.9] Diagnosis: Chronic obstructive pulmonary disease, unspecified[ICD10: J44.9] Jayna VANESSA [address] [address] CPT-4: G0444 02/06/2022 ([id number]) OFFICE/OUTPATIENT VISIT EST Diagnosis: 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] Diagnosis: Vision changes[ICD10: H53.9] Latasha Kika JAYNA VANESSA [address] [address] CPT-4: 75563 02/01/2022 ([id number]) OFFICE/OUTPATIENT VISIT EST Diagnosis: Diarrhea[ICD10: R19.7] Diagnosis: Cough[ICD10: R05.9] Jayna AVNESSA [address] [address] CPT-4: 49204 11/30/19 ([id number]) OFFICE/OUTPATIENT VISIT EST Diagnosis: Post-viral cough syndrome[ICD10: R05.8] Diagnosis: Otalgia of both ears[ICD10: H92.03] Diagnosis: Diarrhea[ICD10: R19.7] Jayna Jessicamarialuisa JAYNA Daniel Villalba [address] [address] CPT-4: 44746 11/22/2021 ([id number]) OFFICE/OUTPATIENT VISIT EST Diagnosis: Diarrhea of presumed infectious origin[ICD10: R19.7] Diagnosis: Altered taste[ICD10: R43.2] Diagnosis: Chronic bronchitis[ICD10: J42] Diagnosis: History of recent pneumonia[ICD10: Z87.01] Latasha VANESSA DO [address] [address] CPT- 4: 77257 11/21/2021 ([id number]) OFFICE/OUTPATIENT VISIT EST Diagnosis: Serous otitis media[ICD10: H65.90] Diagnosis: Postnasal drip[ICD10: R09.82] Diagnosis: Pneumonia[ICD10: J18.9] Jayna MORILLOLINE Daniel LOPEZND ER DO [address] [address] CPT-4: 13445 11/09/2021 ([id number]) NO CHARGE Diagnosis: Pneumonia[ICD10: J18.9] Diagnosis: Respiratory distress[ICD10: R06.03] Jaynapilar Vanessa FLAKITO ANNE MARIE Daniel LOPEZNDER DO [address] [address] CPT-4: 16753 10/31/2021 ([id number]) OFFICE/OUTPATIENT VISIT EST Diagnosis: Vertigo[ICD10: R42] Diagnosis: Nausea[ICD10: R11.0] Diagnosis: Pneumonia[ICD10: J18.9] Jayna Jessicaleydaapolinar MORILLOJAYNA Daniel BRUCE ER DO [address] [address] CPT-4: 21933 10/30/2021 ([id number]) OFFICE/OUTPATIENT VISIT EST Diagnosis: Cervicalgia[ICD10: M54.2] Jayna Jessicamarialuisa JAYNA Daniel LOPEZ NDER DO [address] [address] CPT-4: 87411 09/05/2021 ([id number]) OFFICE/OUTPATIENT VISIT EST Diagnosis: 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] Diagnosis: Seronegative rheumatoid arthritis[ICD10: M06.00] Latasha BRUCEER DO [address] [address] CPT- 4: 76174 08/24/2021 ([id number]) OFFICE/OUTPATIENT VISIT EST Diagnosis: Upper respiratory infection[ICD10: J06.9] Diagnosis: Contact with and (suspected) exposure to other viral communicable diseases[ICD10: Z20.828] Latasha VANESSA DO [address] [address] CPT-4: 65323 07/04/2021 ([id number]) NURSE/OUTPATIENT VISIT EST Diagnosis: FLU VACCINE[ICD10: Z23] Jayna JIANG DO [address] [address] CPT-4: 46051 03/29/2021 ([id number]) OFFICE/OUTPATIENT VISIT EST Diagnosis: Vasovagal episode[ICD10: R55] Diagnosis: Orthostatic hypotension[ICD10: I95.1] Latasha VANESSA DO [address] [address] CPT-4: 69858 03/01/2021 ([id number]) OFFICE/OUTPATIENT VISIT EST Diagnosis: Sebaceous cyst of right axilla[ICD10: L72.3] Latasha VANESSA DO [address] [address] CPT- 4: 93018 02/08/2021 ([id number]) OFFICE/OUTPATIENT VISIT EST Diagnosis: Contact dermatitis[ICD10: L25.9] Jayna VANESSA DO [address] [address] CPT-4: 01228 01/19/2021 ([id number]) OFFICE/OUTPATIENT VISIT EST Diagnosis: Upper respiratory infection[ICD10: J06.9] Diagnosis: COPD exacerbation[ICD10: J44.1] Latasha VANESSA DO [address] [address] CPT-4: 48139 11/29/2020 ([id number]) OFFICE/OUTPATIENT VISIT EST Diagnosis: Sinusitis[ICD10: J32.9] Diagnosis: Acute pansinusitis, recurrence not specified[ICD10: J01.40] Latasha VANESSA [address] [address] CPT-4: 32503 09/29/2020 OFFICE/OUTPATIENT VISIT EST Diagnosis: Other seasonal allergic rhinitis[ICD10: J30.2] Diagnosis: Chronic bronchitis[ICD10: J42] Diagnosis: 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] Diagnosis: Middle ear effusion[ICD10: H65.90] Diagnosis: Fluid level behind tympanic membrane of both ears[ICD10: H65.93] Latasha VANESSA [address] [address] CPT-4: 51784 09/19/2020 ([id number]) OFFICE/OUTPATIENT VISIT EST Diagnosis: Right-sided tinnitus[ICD10: H93.11] Jayna VANESSA [address] [address] CPT-4: 65027 08/10/2020 ([id number]) OFFICE/OUTPATIENT VISIT EST Diagnosis: Dysfunction of right eustachian tube[ICD10: H69.81] Diagnosis: Right-sided tinnitus[ICD10: H93.11] Jayna Bruceapolinar [address] [address] CPT-4: 37820 2020 ([id number]) OFFICE/OUTPATIENT VISIT EST Diagnosis: Pyelonephritis[ICD10: N12] Diagnosis: Anemia[ICD10: D64.9] Diagnosis: Blood in stool[ICD10: K92.1] Jayna VANESSA [address] [address] CPT-4: 98292 07/13/2020 ([id number]) OFFICE/OUTPATIENT VISIT EST Diagnosis: Acute gastroenteritis[ICD10: K52.9] Jayna KENNYE SPaige LOPEZNDER DO [address] [address] CPT-4: 43453 07/05/2020 ([id number]) OFFICE/OUTPATIENT VISIT EST Diagnosis: Essential hypertension[ICD10: I10] Diagnosis: Hypothyroidism, unspecified[ICD10: E03.9] Diagnosis: Metabolic syndrome[ICD10: E88.81] Diagnosis: Mixed hyperlipidemia[ICD10: E78.2] Diagnosis: 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] Jayna LOPEZNDER DO [address] [address] CPT- 4: 18460 06/22/2020 ([id number]) OFFICE/OUTPATIENT VISIT EST Diagnosis: Urinary tract infection[ICD10: N39.0] Jayna LOPEZNDER DO [address] [address] CPT-4: 94888 05/17/2020 ([id number]) OFFICE/OUTPATIENT VISIT EST Diagnosis: Right pulmonary embolus[ICD10: I26.99] Jayna PISANO HerbieBUZZ SPaige LOPEZNDER DO [address] [address] CPT-4: 01038 03/14/2020 ([id number]) OFFICE/OUTPATIENT VISIT EST Diagnosis: COVID-19[ICD10: U07.1] Diagnosis: Pneumonia[ICD10: J18.9] Diagnosis: Dyspnea[ICD10: R06.00] Jayna LOPEZNDE R DO [address] [address] CPT-4: 76600 03/07/2020 ([id number]) OFFICE/OUTPATIENT VISIT EST Diagnosis: Upper respiratory infection[ICD10: J06.9] Genesis MUNOZBUZZ S. ORENDER DO [address] [address] CPT-4: 74588 02/11/2020 ([id number]) OFFICE/OUTPATIENT VISIT EST Diagnosis: Dermatitis[ICD10: L30.9] Diagnosis: Urticaria[ICD10: L50.9] Jayna Vanessa [facility] [address] [place] [address] CPT-4: 15981 09/29/2019 ([id number]) OFFICE/OUTPATIENT VISIT EST Diagnosis: Bone spur of right foot[ICD10: M77.51] Diagnosis: Recurrent UTI[ICD10: N39.0] Diagnosis: MRSA (methicillin resistant staph aureus) culture positive[ICD10: Z22.322] Jayna Vanessa [facility] [address] [place] [address] CPT-4: 59739 09/14/2019 ([id number]) NURSE/OUTPATIENT VISIT EST Diagnosis: Urinary tract infection[ICD10: N39.0] Jayna VANESSA DO [facility] [address] [place] [address] CPT-4: 76872 09/11/2019 ([id number]) NURSE/OUTPATIENT VISIT EST Diagnosis: Urinary tract infection, site not specified[ICD10: N39.0] Jayna LOPEZNDER DO [facility] [address] [place] [address] CPT-4: 13003 09/08/2019 ([id number]) NURSE/OUTPATIENT VISIT EST Diagnosis: Urinary tract infection, site not specified[ICD10: N39.0] Jayna BRUCEER DO [facility] [address] [place] [address] CPT-4: 99196 09/07/2019 ([id number]) OFFICE/OUTPATIENT VISIT EST Diagnosis: Pelvic pain in female[ICD10: R10.2] Diagnosis: Urinary frequency[ICD10: R35.0] Genesis LOPEZNDER DO [facility] [address] [place] [address] CPT-4: 00292 09/02/2019 ([id number]) OFFICE/OUTPATIENT VISIT EST Diagnosis: Sinusitis[ICD10: J32.9] Genesis LOPEZND ER DO [address] [address] CPT-4: 52648 07/09/2019 ([id number]) OFFICE/OUTPATIENT VISIT EST Diagnosis: UTI (urinary tract infection)[ICD10: N39.0] Diagnosis: FLU VACCINE[ICD10: Z23] Genesis BRUCE ER DO [address] [address] CPT-4: 12402 04/15/2019 ([id number]) OFFICE/OUTPATIENT VISIT EST Diagnosis: Pain in right leg[ICD10: M79.604] Genesis BRUCEER DO [address] [address] CPT-4: 91055 04/07/2019 ([id number]) OFFICE/OUTPATIENT VISIT EST Diagnosis: Diverticulitis of large intestine without perforation or abscess without bleeding[ICD10: K57.32] Diagnosis: Cystitis[ICD10: N30.90] Janya BRUCE ER DO [address] [address] CPT-4: 13084 03/25/2019 ([id number]) OFFICE/OUTPATIENT VISIT EST Diagnosis: Abdominal pain[ICD10: R10.9] Diagnosis: Cystitis[ICD10: N30.90] Jayna BRUCE ER DO [address] [address] CPT-4: 85561 03/18/2019 ([id number]) OFFICE/OUTPATIENT VISIT EST Diagnosis: Diverticulitis of large intestine without perforation or abscess without bleeding[ICD10: K57.32] Diagnosis: Generalized abdominal pain[ICD10: R10.84] Diagnosis: Urinary tract infection, site not specified[ICD10: N39.0] [facility] [address] [place] [address] CPT-4: 01017 01/26/2019 ([id number]) OFFICE/OUTPATIENT VISIT EST Diagnosis: Mild intermittent asthma with (acute) exacerbation[ICD10: J45.21] Diagnosis: Allergic rhinitis due to pollen[ICD10: J30.1] Jayna VANESSA DO [address] [address] CPT- 4: 01258 01/08/2019 ([id number]) OFFICE/OUTPATIENT VISIT EST Diagnosis: Mild intermittent asthma with (acute) exacerbation[ICD10: J45.21] Diagnosis: URI, ACUTE[ICD10: J06.9] Diagnosis: Urinary tract infection, site not specified[ICD10: N39.0] Jayna VANESSA DO [address] [address] CPT-4: 61850 01/06/2019 ([id number]) OFFICE/OUTPATIENT VISIT EST Diagnosis: Benign paroxysmal vertigo, bilateral[ICD10: H81.13] Diagnosis: Migraine without aura, not intractable, without status migrainosus[ICD10: G43.009] Jayna VANESSA DO [address] [address] CPT-4: 32790 10/30/2018 ([id number]) OFFICE/OUTPATIENT VISIT EST Diagnosis: Acute bronchitis, unspecified[ICD10: J20.9] Diagnosis: Cough[ICD10: R05] Diagnosis: Other seasonal allergic rhinitis[ICD10: J30.2] Stacey VANESSA DO [address] [address] CPT- 4: 81013 10/07/2018 ([id number]) OFFICE/OUTPATIENT VISIT EST Diagnosis: Pain in unspecified joint[ICD10: M25.50] Diagnosis: Pain in right ankle and joints of right foot[ICD10: M25.571] Diagnosis: Other specified disorders of bone density and structure, unspecified site[ICD10: M85.80] Jayna VANESSA DO [address] [address] CPT-4: 98013 06/23/2018 ([id number]) OFFICE/OUTPATIENT VISIT EST Diagnosis: Hypothyroidism, unspecified[ICD10: E03.9] Diagnosis: Mixed hyperlipidemia[ICD10: E78.2] Jayna ALVARENGA SPaige LOPEZNDER DO [address] [address] CPT-4: 67926 01/16/2018 ([id number]) OFFICE/OUTPATIENT VISIT EST Diagnosis: Cervicalgia[ICD10: M54.2] Genesis MORILLOLINE Daniel LOPEZ NDEDeejay DO [address] [address] CPT-4: 64853 10/16/2017 ([id number]) OFFICE/OUTPATIENT VISIT EST Diagnosis: Headache[ICD10: R51] Diagnosis: Dizziness and giddiness[ICD10: R42] Jayna KENNEY SPaige LOPEZNDER DO [address] [address] CPT-4: 90185 09/12/2017 OFFICE/OUTPATIENT VISIT EST Diagnosis: Cough[ICD10: R05] Genesis MORILLOLINE Daniel LOPEZNDER DO [facility] [address] [place] [address] CPT-4: 58288 08/20/2017 ([id number]) OFFICE/OUTPATIENT VISIT EST Diagnosis: COUGH[ICD10: R05] Jayna GUTIERREZ TracyPaige JESSICANDER DO [address] [address] CPT-4: 96631 08/13/19 18 ([id number]) OFFICE/OUTPATIENT VISIT EST Diagnosis: Acute bronchospasm[ICD10: J98.01] Jayna Thomas SPaige LOPEZNDER DO [address] [address] CPT-4: 77758 07/29/2017 OFFICE/OUTPATIENT VISIT EST Diagnosis: Influenza due to identified novel influenza A virus with other respiratory manifestations[ICD10: J09.X2] Genesis MORILLOLINE Tracy LOPEZNDER DO [address] [address] CPT-4: 00472 07/25/2017 ([id number]) OFFICE/OUTPATIENT VISIT EST Diagnosis: Pain in unspecified joint[ICD10: M25.50] Jayna VANESSA DO [address] [address] CPT- 4: 61294 06/10/2017 OFFICE/OUTPATIENT VISIT EST Diagnosis: Acute bronchitis, unspecified[ICD10: J20.9] Genesis VANESSA DO [address] [address] CPT- 4: 94651 05/28/2017 ([id number]) OFFICE/OUTPATIENT VISIT EST Diagnosis: Hypothyroidism, unspecified[ICD10: E03.9] Diagnosis: Mixed hyperlipidemia[ICD10: E78.2] Diagnosis: Etrsl-3-mbqcybnnowt 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] Diagnosis: Sebaceous cyst[ICD10: L72.3] Jayna MORILLOLINE Daniel VANESSA DO [address] [address] CPT-4: 64351 11/28/2016 ([id number]) OFFICE/OUTPATIENT VISIT EST Diagnosis: Right upper quadrant pain[ICD10: R10.11] Diagnosis: Epigastric pain[ICD10: R10.13] Jayna MORILLOLINE Tracy VANESSA DO [address] [address] CPT-4: 32672 06/05/2016 ([id number]) OFFICE/OUTPATIENT VISIT EST Diagnosis: FLU VACCINE[ICD10: Z23] Jayna MORILLOLINE Daniel JIANG [address] [address] CPT-4: 12611 05/01/2016 OFFICE/OUTPATIENT VISIT EST Diagnosis: Hypothyroidism, unspecified[ICD10: E03.9] Diagnosis: Type 1 diabetes mellitus without complications[ICD10: E10.9] Diagnosis: Mixed hyperlipidemia[ICD10: E78.2] Diagnosis: Essential (primary) hypertension[ICD10: I10] Diagnosis: Mixed incontinence[ICD10: N39.46] Jayna Vanessa IGLESIA Martha VANESSA DO [address] [address] CPT-4: 67211 11/08/2015 ([id number]) OFFICE/OUTPATIENT VISIT EST Diagnosis: Hypothyroidism, unspecified[ICD10: E03.9] Diagnosis: Other fatigue[ICD10: R53.83] Jayna VANESSA [employer] [address] [place] [address] CPT-4: 19071 07/19/2015 ([id number]) OFFICE/OUTPATIENT VISIT EST Diagnosis: Hypothyroidism, unspecified[ICD10: E03.9] Diagnosis: Mixed hyperlipidemia[ICD10: E78.2] Diagnosis: Metabolic syndrome[ICD10: E88.81] Diagnosis: Right lower quadrant abdominal tenderness[ICD10: R10.813] Diagnosis: FLU VACCINE[ICD10: Z23] Jayna JIANG [employer] [address] [place] [address] CPT-4: 96701 03/28/2015 ([id number]) OFFICE/OUTPATIENT VISIT EST Diagnosis: MALAISE AND FATIGUE[ICD9: 780.79] Diagnosis: DEPRESSIVE DISORDER NEC[ICD9: 311] Diagnosis: HYPOTHYROIDISM[ICD9: 244.9] Diagnosis: PNEUMOCOCCAL VACCINE[ICD10: Z23] Jayna VANESSA [employer] [address] [place] [address] CPT-4: 94942 02/08/2015 ([id number]) OFFICE/OUTPATIENT VISIT EST Diagnosis: MALAISE AND FATIGUE[ICD9: 780.79] Diagnosis: DEPRESSIVE DISORDER NEC[ICD9: 311] Diagnosis: HYPOTHYROIDISM[ICD9: 244.9] Diagnosis: ARTHRALGIA-MULTIPLE SITES[ICD9: 719.49] Jayna VANESSA [employer] [address] [place] [address] CPT-4: 70827 01/11/2015 ([id number]) OFFICE/OUTPATIENT VISIT EST 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] Diagnosis: - I - HYPOTHYROIDISM[ICD9: 244.9] Diagnosis: COUGH[ICD10: R05] Diagnosis: ALLERGIC RHINITIS[ICD9: 477.9] Diagnosis: Lumbar degenerative disc disease[ICD9: 722.52] Jaynaparam VANESSA [address] [address] CPT- 4: 03650 11/24/2014 ([id number]) OFFICE/OUTPATIENT VISIT EST Diagnosis: Allergic reaction[ICD9: 995.3] Galina HernandezLoco JAYNA VANESSA DO [address] [address] CPT-4: 08744 11/19/2014 ([id number]) OFFICE/OUTPATIENT VISIT EST Diagnosis: ALLERGIC RHINITIS[ICD9: 477.9] Diagnosis: WHEEZING[ICD9: 786.07] Diagnosis: URINARY TRACT INFECTION[ICD9: 599.0] Diagnosis: Right flank pain[ICD9: 789.09] Conchita VANESSA DO [address] [address] CPT-4: 00890 10/27/2014 ([id number]) OFFICE/OUTPATIENT VISIT EST Diagnosis: URINARY TRACT INFECTION[ICD9: 599.0] Diagnosis: Flank pain[ICD9: 789.09] Conchita CARTER [address] [address] CPT-4: 34385 09/23/2014 ([id number]) OFFICE/OUTPATIENT VISIT EST Diagnosis: HYPERTENSION[ICD9: 401.9] Diagnosis: - I - HYPOTHYROIDISM[ICD9: 244.9] Diagnosis: HYPERLIPIDEMIA NEC/NOS[ICD9: 272.4] Diagnosis: DYSMETABOLIC SYNDROME X[ICD9: 277.7] Jayna VANESSA [address] [address] CPT-4: 73159 07/28/2014 OFFICE/OUTPATIENT VISIT EST Diagnosis: HYPERTENSION[ICD9: 401.9] Diagnosis: GROSS HEMATURIA[ICD9: 599.71] Jayna VANESSA DO [address] [address] CPT-4: 70326 03/30/2014 ([id number]) OFFICE/OUTPATIENT VISIT EST 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 O RENDER DO [address] [address] CPT-4: 39894 08/25/2013 OFFICE/OUTPATIENT VISIT EST Diagnosis: DEPRESSIVE DISORDER NEC[ICD9: 311] Jayna ALVARENGA S. ORENDER DO [address] [address] CPT-4: 42192 06/29/2013 OFFICE/OUTPATIENT VISIT EST Diagnosis: DEPRESSIVE DISORDER NEC[ICD9: 311] Jayna ALVARENGA S. ORENDER DO [address] [address] CPT-4: 65657 05/26/2013 ([id number]) OFFICE/OUTPATIENT VISIT EST Diagnosis: BRONCHITIS, ACUTE[ICD9: 466.0] Diagnosis: HYPOTHYROIDISM[ICD9: 244.9] Diagnosis: HYPERLIPIDEMIA NEC/NOS[ICD9: 272.4] Diagnosis: Shoulder pain[ICD9: 719.41] Jayna GUTIERREZ S. O RENDER DO [address] [address] CPT-4: 53029 05/06/2013 ([id number]) OFFICE/OUTPATIENT VISIT EST Diagnosis: BRONCHITIS, ACUTE[ICD9: 466.0] Diagnosis: SINUSITIS, ACUTE[ICD9: 461.9] Jayna GUTIERREZ SPaige ORENDER DO [address] [address] CPT-4: 93054 04/23/2013 ([id number]) OFFICE/OUTPATIENT VISIT EST Diagnosis: DYSPNEA[ICD9: 786.09] Diagnosis: EDEMA[ICD9: 782.3] Diagnosis: YVVCX-1-KNWJHLWIKZR DEFICIENCY[ICD9: 273.4] Diagnosis: COUGH[ICD9: 786.2] Jayna VANESSA DO [address] [address] CPT-4: 27854 03/31/20 13 OFFICE/OUTPATIENT VISIT EST Diagnosis: Chest pain[ICD9: 786.50] Diagnosis: ANXIETY STATE NOS[ICD9: 300.00] Conchita VANESSA DO [address] [address] CPT-4: 18013 03/05/2013 ([id number]) OFFICE/OUTPATIENT VISIT EST Diagnosis: HYPERLIPIDEMIA NEC/NOS[ICD9: 272.4] Diagnosis: HYPOTHYROIDISM[ICD9: 244.9] Diagnosis: Rdjyh-1-kgbervmqgiq deficiency[ICD9: 273.4] Diagnosis: ALLERGIC RHINITIS[ICD9: 477.9] Jayna VANESSA DO [address] [address] CPT-4: 44889 02/04/2013 ([id number]) OFFICE/OUTPATIENT VISIT EST Diagnosis: COUGH[ICD9: 786.2] Diagnosis: ALLERGIC RHINITIS[ICD9: 477.9] Jayna VANESSA DO [address] [address] CPT-4: 71650 11/27/2012 ([id number]) OFFICE/OUTPATIENT VISIT EST Diagnosis: COUGH[ICD9: 786.2] Diagnosis: DYSPNEA[ICD9: 786.09] Jayna VANESSA DO [address] [address] CPT-4: 74046 11/11/2012 ([id number]) OFFICE/OUTPATIENT VISIT EST Diagnosis: ABDOMINAL PAIN[ICD9: 789.00] Diagnosis: DIARRHEA[ICD9: 787.91] Diagnosis: COUGH[ICD9: 786.2] Jayna GUTIERREZ TracyPaige ANDIE DO [address] [address] CPT-4: 74773 10/21/19 13 OFFICE/OUTPATIENT VISIT EST Diagnosis: COUGH[ICD9: 786.2] Diagnosis: SINUSITIS, ACUTE[ICD9: 461.9] Diagnosis: PHARYNGITIS, ACUTE[ICD9: 462] Jayna GUTIERREZ TracyPaige JANISAPOLINAR DO [address] [address] CPT-4: 95652 09/03/2012 OFFICE/OUTPATIENT VISIT EST Diagnosis: ABDOMINAL PAIN[ICD9: 789.00] Diagnosis: Diarrhea[ICD9: 787.91] Jayna Villalba DO [address] [address] CPT-4: 90085 07/23/2012 ([id number]) OFFICE/OUTPATIENT VISIT EST Diagnosis: DM 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 TYPE II, UNCONTROLLED[ICD9: 250.02] Diagnosis: HYPERLIPIDEMIA NEC/NOS[ICD9: 272.4] Diagnosis: GERD[ICD9: 530.81] Jayna GUTIERREZ TracyPaige JESSICAMARIALUISA DO [address] [address] CPT-4: 06218 05/20/20 OFFICE/OUTPATIENT VISIT EST Diagnosis: DERMATITIS NOS[ICD9: 692.9] Galina PUCKETT DO [address] [address] CPT-4: 66162 04/04/2012 ([id number]) OFFICE/OUTPATIENT VISIT EST Diagnosis: HYPERLIPIDEMIA NEC/NOS[ICD9: 272.4] Diagnosis: HYPOTHYROIDISM[ICD9: 244.9] Diagnosis: DYSMETABOLIC SYNDROME X[ICD9: 277.7] Jayna Sanchez ANDIE [address] [address] CPT-4: 23339 01/02/2012 OFFICE/OUTPATIENT VISIT EST Diagnosis: COUGH[ICD9: 786.2] Diagnosis: SINUSITIS, ACUTE[ICD9: 461.9] Lizzie GUTIERREZ S. ORENDER DO [address] [address] CPT-4: 91474 09/04/2011 OFFICE/OUTPATIENT VISIT EST Diagnosis: Diverticulitis[ICD9: 562.11] Diagnosis: THROMBOPHLEBITIS[ICD9: 451.9] Jayna VANESSA DO [address] [address] CPT-4: 15138 08/14/2011 OFFICE/OUTPATIENT VISIT EST Diagnosis: COUGH[ICD9: 786.2] Jayna VANESSA DO [address] [address] CPT-4: 86839 07/25/19 12 OFFICE/OUTPATIENT VISIT EST Diagnosis: HYPOTHYROIDISM[ICD9: 244.9] Diagnosis: HYPERLIPIDEMIA NEC/NOS[ICD9: 272.4] Diagnosis: Total knee replacement status[ICD9: V43.65] Jayna VANESSA DO [address] [address] CPT- 4: 47048 07/12/2011 OFFICE/OUTPATIENT VISIT EST Diagnosis: BRONCHITIS, ACUTE[ICD9: 466.0] Diagnosis: COUGH[ICD9: 786.2] Jayna VANESSA DO [address] [address] CPT-4: 75437 05/09/20 11 OFFICE/OUTPATIENT VISIT EST Diagnosis: BRONCHITIS, ACUTE[ICD9: 466.0] Diagnosis: ASTHMA NOS[ICD9: 493.90] Diagnosis: Pleurisy[ICD9: 511.0] Jayna VANESSA DO [address] [address] CPT-4: 33237 05/02/2011 OFFICE/OUTPATIENT VISIT EST Diagnosis: COUGH[ICD9: 786.2] Jayna VANESSA DO [address] [address] CPT-4: 92778 11/02/20 11 OFFICE/OUTPATIENT VISIT EST Diagnosis: COUGH[ICD9: 786.2] Diagnosis: SINUSITIS, ACUTE[ICD9: 461.9] Jayna Jessicaleydaapolinar [facility] [address] [place] [address] CPT-4: 02862 04/04/2011 OFFICE/OUTPATIENT VISIT EST Diagnosis: HYPOTHYROIDISM[ICD9: 244.9] Diagnosis: Knee osteoarthritis[ICD9: 715.96] Jaynaparam PAREKH Martha [facility] [address] [place] [address] CPT-4: 87053 03/01/2011 OFFICE/OUTPATIENT VISIT EST Jayna VILLARREALQUELINE S[facility] [address] [place] [phone] CPT-4: 44509 01/04/2011 ([id number]) OFFICE/OUTPATIENT VISIT EST Jayna Jessicamarialuisa VILLARREALKirill StonerELINE [facility] [address] [place] [phone] CPT-4: 31644 12/07/2010 ([id number]) OFFICE/OUTPATIENT VISIT EST Jayna Jessicaleydaapolinar PISANO [facility] [address] [place] [phone] CPT-4: 95606 10/09/2010 ([id number]) OFFICE/OUTPATIENT VISIT EST Jayna Jessicaleydaapolinar [facility] [address] [place] [phone] CPT-4: 46308 08/07/2010 ([id number]) OFFICE/OUTPATIENT VISIT, EST Jayna VILLARREAL MINPILAR [facility] [address] [place] [phone] CPT-4: 83949 06/06/2010 ([id number]) OFFICE/OUTPATIENT VISIT, EST Jayna [facility] [address] [place] [phone] CPT-4: 76448 03/20/2010 ([id number]) OFFICE/OUTPATIENT VISIT, EST Jayna [facility] [address] [place] [phone] CPT-4: 91757 01/30/2010 ([id number]) OFFICE/OUTPATIENT VISIT, EST Jayna VANESSA DO [employer] [address] [place] [phone] CPT-4: 76008 01/09/2010 ([id number]) OFFICE/OUTPATIENT VISIT, EST Jayna BRUCEER DO [address] [phone] CPT-4: 29851 10/26/2009 ([id number]) OFFICE/OUTPATIENT VISIT, EST Lizzie BRUCEER DO [address] [phone] CPT-4: 21931 10/18/19 10 ([id number]) OFFICE/OUTPATIENT VISIT, EST Jayna VANESSA DO [address] [phone] CPT-4: 33341 10/04/2009 ([id number]) OFFICE/OUTPATIENT VISIT, EULOGIO VANESSA DO [employer] [address] [place] [phone] CPT-4: 63375 09/21/2009 Plan of Care Planned Activity Notes [...] F43.9 08/07/2022 Appointment: Jayna Vanessa WPtel: [phone] [phone] US FOLLOW UP 08/07/2022 Visit Diagnosis Plan: [...] 06/29/2022 Appointment: Marlene Staples WPtel: [phone] [phone] ACUTE ILLNESS 06/29/2022 Patient Education: ciprofloxacin HCl- [employer] Coupon [id number] Completed 06/29/2022 Visit Diagnosis Plan: Depression Discussion: Increase Wellbutrin XL to 300mg po qAM Fwup 2 mos ICD-9 : 311 ICD-10 : F32.A 05/28/2022 Visit Diagnosis Plan: Hypothyroidism Discussion: Labs discussed Decrease levothyroxine to 150mcg 6 days a week and repeat thyroid lab in 2mos ICD-9 : 244.9 ICD-10 : E03.9 05/28/2022 Appointment: Jayna Vanessa WPtel: [phone] [phone] US FOLLOW UP 05/28/2022 Visit [...] : R73.9 05/10/2022 Appointment: Jayna Vanessa WPtel: [address] [place], [place] [phone] US FOLLOW UP 05/10/2022 Visit Diagnosis Plan: Migraine, intractable Discussion : Toradol 30mg IM x1 given in clinic. Start Rizatriptan-- discussed on how to use and may repeat x1 dose 2 hours later. Restart propranolol for migraine prevention. Notify clinic if migraine not improving. ICD-9 : 346.91 ICD-10 : G43.919 04/18/2022 Appointment: Marlene Staples WPtel: [phone] [place] [phone] ACUTE ILLNESS 04/18/2022 Patient Education: propranolol- OptimizeRX Coupon [id number] Completed 04/18/2022 Appointment: Jayna Vanessa WPtel: [address] [place] [address] US INJECTION 04/05/2022 Appointment: Jayna Vanessa WPtel: [address] [place], [place] [address] US CANCELED 03/21/2022 Visit Diagnosis Plan: Acute [...] : J30.9 02/15/2022 Appointment: Jayna Vanessa WPtel: [address] [place], [place] [phone] US ACUTE ILLNESS 02/15/2022 Patient Education: prednisone- OptimizeRX Coupon [id number] https://www.[employer].com/samplemd/resources/getResource/61/[email or web address]-[email or web address]-fs Completed 02/15/2022 Visit Diagnosis Plan: Hypothyroidism, unspecified Disc ussion: Stable ICD-9 : 244.9 ICD-10 : E03.9 02/06/2022 Visit Diagnosis Plan: Encounter for [facility] adult medical examination without abnormal [...] J44.9 02/06/2022 Appointment: Jayna Vanessa WPtel: [phone] [phone] Annual Well Visit 02/06/2022 Care Plan: Annual depression screening, 15 minutes 02/06/2022 Visit Diagnosis Plan: 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 Patient declines- will get stat CT of the head, cbc, cmp, and ESR and fwup with results [facility] sample given ICD-9 : 346.03 ICD-10 : G43.111 02/01/2022 Appointment: Latasha Anand WPtel: [phone] [phone] ACUTE ILLNESS 02/01/2022 Patient Education: Patient [...] : R19.7 11/29/2021 Appointment: Jayna Vanessa WPtel: [address] [place], [place] [address] FOLLOW UP 11/29/2021 Visit Diagnosis Plan: Diarrhea Discussion: C Diff nega tive Treat with diflucan and Restora-RX Fwup 1 week ICD-9 : 787.91 ICD-10 : R19.7 11/22/2021 Visit Diagnosis Plan: Post-viral cough syndrome Discus joaquín: Change albuterol to Breztri 2p BID Add singulair 10mg po q HS ICD-9 : 786.2 ICD-10 : R05.8 11/22/2021 Appointment: Jayna Vanessa WPtel: [phone] [phone] US ACUTE ILLNESS 11/22/2021 Patient Education: Singulair- OptimizeRX Jorge L [id number] https://www.[employer]/samplemd/resources/getResource/61/5p74fsc3-9elk-7937-6c Completed 11/22/2021 Visit Diagnosis Plan: Diarrhea of presumed infectious origin Discussion: Will check for c-diff due to recent antibiotics and foul smelling diarrhea ICD-9 : 009.3 ICD-10 : R19.7 11/21/2021 Visit Diagnosis Plan: History of recent pneumonia Disc ussion: Check cbc, cmp, ESR, and cxr now ICD-9 : V12.61 ICD-10 : Z87.01 11/21/2021 Appointment: Latasha Anand WPtel: [phone] [phone] ACUTE ILLNESS 11/21/2021 Patient Education: Patient Medication Summary Completed 11/21/2021 Visit Diagnosis Plan: Pneumonia Discussion: Finish all abx and continue albuterol Fwup next week ICD-9 : 486 ICD-10 : J18.9 11/09/2021 Visit Diagnosis Plan: Serous otitis media Discussion: Kenalog 40mg with Dexamethasone 2mg IM now ICD-9 : 381.4 ICD-10 : H65.90 11/09/2021 Appointment: Jayna Vanessatel: [address] [place], [place] [address] Hospital Follow Up 11/09/2021 Visit Diagnosis Plan: Pneumonia Discussion: Admit to h ospital ICD-9 : 486 ICD-10 : J18.9 10/31/2021 Appointment: Jayna Vanessatel: [address] [place], [place] [phone] FOLLOW UP 10/31/2021 Visit Diagnosis Plan: Nausea [...] us e prn 10/30/2021 Appointment: Jayna Vanessatel: [facility]3 [phone] ACUTE ILLNESS 10/30/2021 Visit Diagnosis Plan: Cervicalgia Discussion: Had x-ra ys done Kenalog 40mg IM now Baclofen prn Mobic for 1 week Topical muscle rube Moist heat and stretches shown Has PT sessions scheduled next week so will add in therapy for neck ICD-9 : 723.1 ICD-10 : M54.2 09/05/2021 Appointment: Jayna Vanessatel: [phone] [phone] ACUTE ILLNESS 09/05/2021 Visit Diagnosis [...] 08/24/2021 Appointment: Latasha Anand WPtel: [phone] [phone] ACUTE ILLNESS 08/24/2021 Patient Education: Patient Medication Summary Completed 08/24/2021 Patient Education: prednisone- Optimize[employer] Coupon [id number] Completed 08/24/2021 Visit Plan: Supportive care. Rest, [...] : J06.9 07/04/2021 Appointment: Latasha Anand WPtel[facility] [address] [facility] [facility] I[facility] 07/04/2021 Patient Education: Patient Medication Summary Completed 07/04/2021 Patient Education: Patient Medication Summary Completed 07/04/2021 Appointment: Latasha Anand WPtel: [phone] [phone] US NO SHOW 07/03/2021 Appointment: Latasha Anand WPtel: [phone] [phone] patients issue resolved so moved to 's schedule for his hospital fwup (km) CANCELED 03/29/2021 Appointment: Jayna Vanessa WPtel: [phone] [phone] US INJECTION 03/29/2021 Visit Diagnosis Plan: Vasovagal episode Discussion: Mo nitored in office. Stable, feeling better- sent to [facility] for 1L NS IV, cbc, and cmp. ICD-9 : 780.2 ICD-10 : R55 03/01/2021 Patient Education: Patient Medication Summary Completed 03/01/2021 Visit Diagnosis Plan: Sebaceous cyst of right axilla D iscussion: Pustule/cyst drained- see note. F/U for concerns. ICD-9 : 706.2 ICD-10 : L72.3 02/08/2021 Appointment: Latasha Anand WPtel: [phone] [phone] ACUTE ILLNESS 02/08/2021 Patient Education: Patient Medication Summary Completed 02/08/2021 Visit Diagnosis Plan: Contact dermatitis Discussion: T opical TAC and prednisone Notify if persists or worsens ICD-9 : 692.9 ICD-10 : L25.9 01/19/2021 Appointment: Jayna Vanessa WPtel: [phone] [phone] ACUTE ILLNESS 01/19/2021 Patient Education: prednisone- Opt[employer] Coupon [id number] Completed 01/19/2021 Patient Education: triamcinolone acetonide- Opt[employer] Coupon [phone] Completed 01/19/2021 Visit Diagnosis Plan: Hypothyroidism, unspecified Disc ussion: Increase levothyroxine to 150mcg po daily and recheck TSH and free T4 in 2mos ICD-9 : 244.9 ICD-10 : E03.9 01/03/2021 Visit Diagnosis Plan: Essential (primary) hypertension Discussion: Stable ICD-9 : 401.9 ICD-10 : I10 01/03/2021 Visit Diagnosis Plan: Encounter for [facility] adult medical examination without abnormal findings Discussion: Mediterranean diet Combinati on of cardio and weight bearing exercise Had Covid vaccines Lab discussed ICD-9 : V70.9 ICD-10 : Z00.00 01/03/2021 Visit Diagnosis Plan: Chronic obstructive pulmonary di sease, unspecified Discussion: Following with pulmonology ICD-9 : 496 ICD-10 : J44.9 01/03/2021 Appointment: Jay[facility] Van[facility] WPtel[facility] [phone] [facility] Annual Well Visit 01/03/2021 Patient Education: levothyroxine- Optimize[employer] Coupon [phone] [id number] https://www.[employer]/samplemd/resources/getResource/61/[email or web address]-m6 Completed 01/03/2021 Visit Diagnosis Plan: COPD exacerbation Discussion: Sa jorge a given. Prednisone 40 mg x 5 days for exacerbation- increased cough, shortness of breath, and phlegm. Promethazine DM cough syrup sent d/t frequent hacking cough that interrupts sleep. F/U for no improvement or any concerns. ICD-9 : 491.21 ICD-10 : J44.1 11/29/2020 Appointment: Latasha Anand WPtel: [phone] [facility] ACUTE ILLNESS 11/29/2020 Patient Education: Patient Medication Summary Completed 11/29/2020 Patient Education: prednisone- Optimize[employer] Coupon [id number] Completed 11/29/2020 Patient Education: promethazine-DM- Optimize[employer] Coupon [id number] Completed 11/29/2020 Visit Diagnosis Plan: Sinusitis Discussion: Will start doxycycline (pcn allergy). Sinus rinses. Tylenol/nsaids for headache/pain. Return to clinicif not improving/concerns. ICD-9 : 473.9 ICD-10 : J32.9 09/29/2020 Appointment: Latasha Anand WPtel: [phone] [phone] ACUTE ILLNESS 09/29/2020 Patient Education: Patient Medication Summary Completed 09/29/2020 Patient Education: doxycycline hyclate- OptimizeRX Coupon [id number] Completed 09/29/2020 Visit Diagnosis Plan: Other [...] J42 09/19/2020 Appointment: Latasha Anand WPtel: [phone] [phone] ACUTE ILLNESS 09/19/2020 Patient Education: Patient Medication Summary Completed 09/19/2020 Patient Education: ProAir HFA- OptimizeRX Coupon [id number] Completed 09/19/2020 Visit Diagnosis Plan: Right-sided tinnitus [...] H93.11 08/10/2020 Appointment: Jayna Vanessa WPtel: [phone] [phone] FOLLOW UP 08/10/2020 Patient Education: neomycin-polymyxin B-dexameth- Opti mizeRX Coupon [id number] https://www.[employer]/samplemd/resources/getResource/61/[email or web address]-8k91-mf Completed 08/10/2020 Visit Diagnosis Plan: Dysfunction of right eustachian tube Discussion: Naylay.ak video visit done Increase zyrtec to BID Increase flonase to BID Add prednisone To office at end of week to assess otoscope exam if persists ICD-9 : 381.81 ICD-10 : H69.81 08/01/2020 Appointment: Jayna Vanessa WPtel: [phone] [phone] TELEMEDICINE 08/01/2020 Patient Education: prednisone- Opt[employer]RX Coupon [phone] https://www.[employer]/samplemd/resources/getResource/61/ni9i36d9-0486-9d6u-46 Completed 08/01/2020 Visit Diagnosis Plan: Pyelonephritis Discussion: Hilary daniel all abx Push fluids Check lab and repeat UA in 5 days--CBC, CMP, ESR ICD-9 : 590.80 ICD-10 : N12 07/13/2020 Appointment: Jayna Vanessa WPtel: [facility] [place] [phone] Hospital Follow Up 07/13/2020 Visit Diagnosis Plan: Acute gastroenteritis Discussion : Telephone visit completed Clear liquid diet next 24-48hrs Flagyl to cover for colitis/diverticulitis Zofran prn Notify or to ER if worsening ICD-9 : 558.9 ICD-10 : K52.9 07/05/2020 Appointment: Jayna Vanessa WPtel: [facility]4 [phone] TELEMEDICINE 07/05/2020 Patient Education: ondansetron HCl- OptimizeRX Coupon [id number] https://www.[employer]/sampleGripp[employer]n Tech/resources/getResource/61/l6p74bn4-5d6s-284l-6r Completed 07/05/2020 Visit Diagnosis Plan: Metabolic syndrome Discussion: U pdate CMP, HBa1c ICD-9 : 277.7 ICD-10 : E88.81 06/22/2020 Visit Diagnosis Plan: Okjfq-4-dmeyyovptai deficiency D iscussion: Following with pulmonology ICD-9 [...] : I10 06/22/2020 Appointment: Jayna Vanessa WPtel: [facility]6 [phone] FOLLOW UP 06/22/2020 Visit Diagnosis Plan: Urinary tract infection Discussi on: Macrobid Diflucan Push water Notify if worsens ICD-9 : 599.0 ICD-10 : N39.0 05/17/2020 Appointment: Jayna Vanessatel: [facility]1 [phone] ACUTE ILLNESS 05/17/2020 Patient Education: fluconazole- OptimizeRX Coupon [phone] https://www.[employer].com/samplemd/resources/getResource/61/3w4aw6pd-u1i1-2q6p-8s Completed 05/17/2020 Visit Diagnosis Plan: Right pulmonary embolus Discussi on: Continue eliquis at 5mg po BID Has appointments pending with pulmonology and hematology Fwup after visits with both of these specialists ICD-9 : 415.19 ICD-10 : I26.99 03/14/2020 Appointment: Jayna Vanessa WPtel: [phone] US LM 03/14/20 on cell -- home phone had busy signal Hospital Follow Up 03/14/2020 Appointment: Jayna Vanessa WPtel: [facility]7 [phone] I schedule patient by mistake ddo Scheduled [...] R06.00 03/07/2020 Appointment: Jayna Vanessa WPtel: [phone] [phone] ACUTE ILLNESS 03/07/2020 Care Plan: CT THORAX W/DYE LOINC : 05805 -6 Pending 03/07/2020 Appointment: Jayna Vanessa WPtel: [phone] [phone] NO SHOW - FORGIVEN 03/02/2020 Visit Diagnosis Plan: Upper respiratory infection Disc ussion: patient's covid test was neg from several weeks ago. proair refilled to take as needed. medrol pack prescribed to cover for allergies since her symptoms began after being in [facility]. however, instructed patient that she needs to be checked again for coronavirus due to severity of her symptoms. [place] so informed her to go to [facility] for testing. call ofice with new or worsening symptoms, otherwise push fluids. ICD-9 : 465.9 ICD-10 : J06.9 02/11/2020 Appointment: Genesis Fernández [address] [place] [address] TELEMEDICINE 02/11/2020 Patient Education: ProAir HFA- OptimizeRX Coupon [id number] Completed 02/11/2020 Patient Education: Medrol (Isaiah)- [employer]imizeRX Coupon [id number] Completed 02/11/2020 Visit Diagnosis Plan: Hypothyroidism, unspecified [...] I10 12/21/2019 Visit Diagnosis Plan: Encounter for [facility] adult medical examination without abnormal findings Discussion: Mediterranean diet Combinati on of cardio and weight bearing exercise Lab discussed Last colonoscopy 3 years ago ICD-9 : V70.9 ICD-10 : Z00.00 12/21/2019 Appointment: Jayna Vanessatel: [phone] [facility] Annual Well Visit 12/21/2019 Care Plan: Referral Order SNOMED-CT : [id number] Pending 12/21/2019 Visit Diagnosis Plan: Dermatitis Discussion: Doxy.me v ideo visit done Cover with Prednisone taper Use Zyrtec 10mg po q AM BID ICD-9 : 692.9 ICD-10 : L30.9 09/29/2019 Appointment: Jayna Vanessatel: [phone] [phone] TELEMEDICINE 09/29/2019 Patient Education: prednisone- OptimizeRX Coupon [id number] https://www.[employer].com/samplemd/resources/getResource/61/[email or web address] Completed 09/29/2019 Visit Diagnosis Plan: Bone spur [...] : N39.0 09/14/2019 Appointment: Jayna Vanessa WPtel: [address] [place], [place] [phone] TELEMEDICINE 09/14/2019 Appointment: Jayna Vanessa WPtel: [address] [place], [place] [phone] US LAB 09/11/2019 Appointment: Jayna Vanessa WPtel: [address] [place], [place] [phone] 09/09/2019 1210--per Joey patient was to only have 1 injection, reculture urine on 09/11/19 (km) CANCELED 09/09/2019 Appointment: Jayna Vanessa WPtel: [address] [place], [place] [phone] INJECTION 09/08/2019 Appointment: Jayna Vanessa WPtel: [address] [place], [place] [phone] US INJECTION 09/07/2019 Visit Diagnosis Plan: Urinary [...] ICD-10 : R35.0 09/02/2019 Appointment: Genesis Fernández [address] [place] [address] ACUTE ILLNESS 09/02/2019 Visit Diagnosis Plan: Sinusitis Discussion: instructed to start flonase daily and zyrtec daily. if no improvement next week, call clinic and may need further directions. instructed to use saline eye drops as needed to eyes to assist with dryness. ICD-9 : 473.9 ICD-10 : J32.9 07/09/2019 Appointment: Genesis Fernández [address] [place] [address] ACUTE ILLNESS 07/09/2019 Visit Diagnosis Plan: UTI (urinary tract infection) Di scussion: urine culture sent off. will start on macrobid due to symptoms. instructed to push fluids and chemo tomorrow with worsening symptoms. ICD-9 : 599.0 ICD-10 : N39.0 04/15/2019 Appointment: Jayna Vanessa WPtel: [phone] US INJECTION 04/15/2019 Appointment: Genesis Fernández [address] [place] [address] ACUTE ILLNESS 04/15/2019 Visit Diagnosis Plan: Pain in right leg Discussion: ke nalog/dexa given in office. continue with flexeril prn. PT was ordered for patient due to chronic issues. call office with worsening symptoms and may need imaging. ICD-9 : 729.5 ICD-10 : M79.604 04/07/2019 Appointment: Genesis Feránndez [address] [place] [address] ACUTE ILLNESS 04/07/2019 Visit Diagnosis Plan: Diverticulitis of large intestine without perforation or abscess without bleeding Discussion: Patient will call when she g ets home and verify which antibiotics she has left--needs at least another week on flagyl and thinks she only took 1 week on that ICD-9 : 562.11 ICD-10 : K57.32 03/25/2019 Appointment: aJyna Vanessa WPtel: [facility]8 [phone] FOLLOW UP 03/25/2019 Visit Diagnosis Plan: Cystitis Discussion: Bactrim and culture urine ICD-9 : 595.9 ICD-10 : N30.90 03/18/2019 Visit Diagnosis Plan: Abdominal pain Discussion: Cover with flagyl for colitis [place] diet To ER this weekend if worsening Fwup 1 week ICD-9 : 789.00 ICD-10 : R10.9 03/18/2019 Appointment: Jayna Vanessa WPtel: [phone] [phone] ACUTE ILLNESS 03/18/2019 Visit Diagnosis Plan: Urinary [...] ICD-10 : R10.84 01/26/2019 Appointment: Genesis Fernández [address] [place] [address] ACUTE ILLNESS 01/26/2019 Appointment: Jayna Vanessa WPtel: [facility] [place] [phone] CANCELED 01/12/2019 Visit Diagnosis Plan: Mild intermittent asthma with (a cute) exacerbation Discussion: Kenalog 40mg IM now Prednisone stating tomorrow Start Doxycycline tonight Continue SVNs with duoneb q4hrs To ER this weekend if worsening Call Saturday on how doing ICD-9 : 466.0 ICD-10 : J45.21 01/08/2019 Appointment: Jayna Vanessa WPtel: [address] [place], [place] [phone] FOLLOW UP 01/08/2019 Patient Education: prednisone- OptimizeRX Coupon [phone] https://www.[employer]/resources/getResource/61/[email or web address] Completed 01/08/2019 Visit Diagnosis Plan: Mild intermittent asthma with (a cute) exacerbation Discussion: Solumedrol 125mg IM SVN with duoneb given Continue albuterol q4hrs CXR now Recheck tomorrow ICD-9 : 466.0 ICD-10 : J45.21 01/06/2019 Appointment: Jayna Vanessa WPtel: [facility] [place] [phone] ACUTE ILLNESS 01/06/2019 Visit Diagnosis Plan: Encounter for screening for roel gnant neoplasm of colon Discussion: positive for ob. will order ct abd/pelvis due to other findings and discussed with patient that may need to proceed with updated colonoscopy. patient verbalized understanding. ICD-9 : V76.51 ICD-10 : Z12.11 12/11/2018 Visit Diagnosis Plan: Encounter for [facility] adult medical examination with abnormal findings Discussion: [...] ICD-10 : N76.0 12/11/2018 Appointment: Genesis Fernández [address] [place], [place] [address] Annual Well Visit 12/11/2018 Care Plan: RML ASSAY THYROID STIM HORMONE Pending 12/04/2018 Care Plan: RML ASSAY OF FREE THYROXINE Pe nding 12/04/2018 Care Plan: RML A1C HPLC LOINC : 62906-2 Pending 12/04/2018 Care Plan: RML LIPID PANEL LOINC : 87991 -1 Pending 12/04/2018 Care Plan: RML COMPREHEN METABOLIC PANEL LOINC : 39168-2 Pending 12/04/2018 Care Plan: QUEST CBC (INCLUDES DIFF/PLT) LOINC : 63956-7 Pending 12/04/2018 Visit Diagnosis Plan: Benign paroxysmal vertigo, bilat eral Discussion: Meclizine Vestibular Exercises To ER if worsens or develops neurological symptoms or will need CT scan if persists/worsens ICD-9 : 386.11 ICD-10 : H81.13 10/30/2018 Appointment: Jayna Vanessa WPtel: [phone] [phone] ACUTE ILLNESS 10/30/2018 Patient Education: VESTIBULAR EXCERCISES Completed 10/30/2018 Patient Education: meclizine- OptimizeRX Coupon [id number] Completed 10/30/2018 Appointment: Jayna Vanessa WPtel: [phone] [phone] US canceled due to huband going into [...] 10/07/2018 Appointment: Stacey Feng [facility] ACUTE ILLNESS 10/07/2018 Patient Education: doxycycline hyclate- OptimizeRX Cou jerald [id number] https://www.[employer].com/samplemd/resources/getResource/61/s703bei5-w016-196x-11 Completed 10/07/2018 Care Plan: RML ASSAY OF [...] : M85.80 06/23/2018 Appointment: Jayna Vanessa WPtel: [address] [place], [place] [phone] US FOLLOW UP 06/23/2018 Appointment: Jayna Vanessa WPtel: [address] [place], [place] [phone] ER Follow UP 01/27/2018 Visit Diagnosis Plan: Hypothyroidism, unspecified Disc ussion: Lab discussed Increase Levothyroxine to 175mcg daily then recheck level in 6 weeks Follow Up: 6 weeks ICD-9 : 244.9 ICD-10 : E03.9 01/16/2018 Visit Diagnosis Plan: Mixed hyperlipidemia Discussion: Defers statin meds ICD-9 : 272.4 ICD-10 : E78.2 01/16/2018 Appointment: Jayna Vanessa WPtel: [address] [place], [place] [address] US FOLLOW UP 01/16/2018 Patient Education: Patient Medication Summary Completed 01/16/2018 Patient Education: Patient Medication Summary Completed 01/15/2018 Care Plan: RML COMPREHEN METABOLIC PANEL LOINC : 67397-5 Pending 01/15/2018 Care Plan: RML ASSAY THYROID STIM HORMONE Pending 01/15/2018 Care Plan: RML ASSAY OF FREE THYROXINE Pe nding 01/15/2018 Care Plan: RML LIPID PANEL LOINC : 55480 -1 Pending 01/15/2018 Care Plan: CBC Pending 01/15/2018 Care Plan: RML A1C HPLC LOINC : 44198-1 Pending 01/15/2018 Appointment: Jayna Vanessa WPtel: [address] [place] [phone] US CANCELED 12/26/2017 Appointment: Jayna Vanessa WPtel: [address] [place] [phone] US CANCELED 10/28/2017 Visit Diagnosis Plan: Cervicalgia Discussion: xray ord ered of cervical spine and right shoulder. 40 mg kenalog/15 mg toradol prescribed to assist with pain. medrol dose pack prescribed to start tomorrow. instructed patient that if she d evelops worsening pain or no improvement, call or rtc. ICD-9 : 723.1 ICD-10 : M54.2 10/16/2017 Appointment: Genesis Fernández [address] [place] [phone] ACUTE ILLNESS 10/16/2017 Patient Education: Patient Medication Summary Completed 10/16/2017 Care Plan: X-RAY EXAM NECK SPINE 4/5VWS cervical LOINC : 78153-9 Pending 10/16/2017 Visit Diagnosis Plan: Headache Discussion: Stat CT of head Dilated eye exam ICD-9 : 784.0 ICD-10 : R51 09/12/2017 Visit Diagnosis Plan: Dizziness and giddiness Discussi on: Check CBC,TSH, Free T4 now ICD-9 : 780.4 ICD-10 : R42 09/12/2017 Appointment: Jayna Vanessa WPtel: [phone] [phone] ACUTE ILLNESS 09/12/2017 Patient Education: Patient Medication Summary Completed 09/12/2017 Care Plan: CT HEAD/BRAIN W/O DYE LOINC : 66832-5 Pending 09/12/2017 Visit Diagnosis Plan: Cough Discussion: discussed cxra y and sputum results with patient and how they are negative for bacteria. patient restarted on her PPI to cover possiblity of GERD causing cough. 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 rtc with any new or worsening symptoms but continue with inhaler and nebulizer treatments as needed. ICD-9 : 786.2 ICD-10 : R05 08/20/2017 Appointment: Genesis Fernández [address] [facility] FOLLOW UP 08/20/2017 Patient Education: Patient Medication Summary Completed 08/20/2017 Visit Diagnosis Plan: COUGH Discussion: Check stat CXR Check Sputum culture ICD-9 : 786.2 ICD-10 : R05 08/13/2017 Appointment: Jayna Vanessa WPtel: [phone] [phone] ACUTE ILLNESS 08/13/2017 Patient Education: Patient Medication [...] Rest, Fluids... 07/29/2017 Appointment: Jayna Vanessa WPtel: [address] [place], [place] [phone] ACUTE ILLNESS 07/29/2017 Patient Education: Patient Medication [...] ICD-10 : J09.X2 07/25/2017 Appointment: Genesis Fernández [address] [place] [address] ACUTE ILLNESS 07/25/2017 Patient Education: Patient Medication [...] : M25.50 06/10/2017 Appointment: Jayna Vanessa WPtel: [address] [place], [place] [phone] ACUTE ILLNESS 06/10/2017 Patient Education: Patient Medication Summary Completed 06/10/2017 Appointment: Jayna Vanessa WPtel: [address] [place], [place] [phone] Does not need appointment CANCELED 2016 Appointment: Jayna Vanessa WPtel: [phone] [phone] [place] CANCELED 05/30/2017 Visit Diagnosis Plan: Acute bronchitis, unspecified Di scussion: prednisone, zpack and tessalon perles prescribed to assist with symptoms. call or RTC if no improvement. humidifier at night. hydrate well and rest. discussed side effects from prednisone including increased blood sugars and instructed to monitor. ICD-9 : 490 ICD-10 : J20.9 05/28/2017 Appointment: Genesis Fernández [address] [facility] ACUTE ILLNESS 05/28/2017 Patient Education: Patient Medication Summary Completed 05/28/2017 Visit Diagnosis Plan: Type 2 diabetes mellitus without complications Discussion: Continue current meds accuchecks daily ICD-9 : 250.00 ICD-10 : E11.9 04/04/2017 Visit Diagnosis Plan: Encounter for [facility] adult medical examination without abnormal findings Discussion: Flu and Pneumovax given Mamm ogram ordered Lab discussed ICD-9 : V70.9 ICD-10 : Z00.00 04/04/2017 Appointment: Jayna Vanessa WPtel: [phone] [phone] Annual Well Visit 04/04/2017 Patient Education: Patient Medication Summary Completed 04/04/2017 Care Plan: MAMMOGRAM SCREENING LOINC : 2 6347-5 Pending 04/04/2017 Patient Education: Patient Medication Summary Completed 03/21/2017 Care Plan: RML COMPREHEN METABOLIC PANEL LOINC : 84414-8 Pending 03/21/2017 Care Plan: RML ASSAY THYROID STIM HORMONE Pending 03/21/2017 Care Plan: RML ASSAY OF FREE THYROXINE Pe nding 03/21/2017 Care Plan: CBC Pending 03/21/2017 Care Plan: RML A1C HPLC LOINC : 32675-1 Pending 03/21/2017 Visit Diagnosis Plan: Mixed hyperlipidemia Discussion: Continue current meds Follow Up: 6 months ICD-9 : 272.4 ICD-10 : E78.2 11/28/2016 Visit Diagnosis Plan: Hypothyroidism, unspecified Disc ussion: Continue current dose ICD-9 : 244.9 ICD-10 : E03.9 11/28/2016 Visit Diagnosis Plan: Ekkyv-9-ihsaiigazyz deficiency D iscussion: Continue weekly injections ICD-9 : 273.4 ICD-10 : E88.01 11/28/2016 Visit Diagnosis Plan: Sebaceous cyst Discussion: Emily swann Discussed removal ICD-9 : 706.2 ICD-10 : L72.3 11/28/2016 Appointment: Jayna Vanessa WPtel: [phone] [phone] / rang and rang on home phone and mobile confirmed~sl FOLLOW UP 11/28/2016 Patient Education: Patient Medication Summary Completed 11/28/2016 Patient Education: Patient Medication Summary Completed 11/20/2016 Referral: Tom Mcrae WPtel: [address] [facility] [address] 440 [id number] [place] Referral Initiated 07/05/2016 Visit Plan: Start with CT abdomen/pelvis Will need EGD and Colonoscopy so will refer to Dr. Pina Obtain most recent lab results 06/05/2016 Appointment: [facility]el[phone] [phone] [facility] 06/05/2016 Patient Education: Patient Medication Summary Completed 06/05/2016 Care Plan: CT PELVIS W/O DYE LOINC : 361 08-9 Pending 06/05/2016 Care Plan: CT ABDOMEN W/O DYE LOINC : 36 103-0 Pending 06/05/2016 Care Plan: Referral Order SNOMED-CT : [id number] Pending 06/05/2016 Appointment: Jayna Vanessa [facility]Ptel: [phone] [phone] [place] INJECTION 05/01/2016 Patient Education: Patient Medication Summary Completed 05/01/2016 Patient Education: Patient Medication Summary Completed 04/26/2016 Care Plan: RML COMPREHEN METABOLIC PANEL LOINC : 30068-8 Pending 04/26/2016 Care Plan: RML ASSAY THYROID STIM HORMONE Pending 04/26/2016 Care Plan: RML ASSAY OF FREE THYROXINE Pe nding 04/26/2016 Care Plan: RML A1C HPLC LOINC : 59679-9 Pending 04/26/2016 Referral: Aditya Stone WPtel: [address] [place] [address] Drive [address] [id number] Arrival time is 10:00 Am~sl Appointment Confirme d 11/25/2015 Visit Plan: Had fasting lab done this AM Continue PT for right shoulder Continue current meds Referral to Dr. Temo Stone for incontinence 11/08/2015 Appointment: Jayna Vanessa WPtel: [phone] [phone] 11/06 confirmed-sp FOLLOW UP 11/08/2015 Patient Education: Patient Medication Summary Completed 11/08/2015 Appointment: Jayna Vanessa WPtel: [phone] [phone] 10/19 rescheduled ~sl RESCHEDULED 10/24/2015 Appointment: Jayna Vanessa WPtel: [phone] [phone] US 10/10rang and rang ~sl RESCHEDULED 6 Patient Education: Patient Medication Summary Completed 10/12/2015 Care Plan: RML COMPREHEN METABOLIC PANEL LOINC : 59214-0 Pending 10/12/2015 Care Plan: RML ASSAY THYROID STIM HORMONE Pending 10/12/2015 Care Plan: RML ASSAY OF FREE THYROXINE Pe nding 10/12/2015 Care Plan: RML LIPID PANEL LOINC : 14308 -1 Pending 10/12/2015 Care Plan: CBC Pending 10/12/2015 Care Plan: RML A1C HPLC LOINC : 54122-7 Pending 10/12/2015 Care Plan: VITAMIN D TOTAL (25 HYDROXY) P ending 10/12/2015 Appointment: Jayna Van[facility]Ptel[phone] [phone] [place] CANCELED 09/22/2015 Visit Plan: Lab discussed Change thyroid med back to brand synthroid and recheck thyroid lab in 3mos 07/19/2015 Appointment: Jayna Vanessa WPtel: [phone] [phone] 07/18/15 appt confirmed cn FOLLOW UP 07/19 Patient Education: Patient Medication Summary Completed 07/19/2015 Patient Education: Patient Medication Summary Completed 07/12/2015 Visit Plan: Lab discussed Change synthro id to 150mcg all days but M, W, F will change to 175mcg Check Lab and fwup in 3mos Flu shot given 03/28/2015 Appointment: Jayna Vanessa WPtel: [phone] [phone] 03/25 rang for 1:40 seconds 03/28/ appt confirmed cn FOLLOW UP 03/28/2015 Patient Education: Patient Medication Summary Completed 03/28/2015 Patient Education: Patient Medication Summary Completed 03/21/2015 Visit Plan: Continuue fluoxetine at high er dose Increase synthroid to 150mcg as ordered Decrease propranolol to 20mg po BID Check thyroid lab and fwup in 2mos Prevnar 13 given 02/08/2015 Appointment: Jayna Vanessa WPtel: [facility]7 [phone] FOLLOW UP 02/08/2015 Patient Education: Patient Medication Summary Completed 02/08/2015 Visit Plan: Check CBC, CMP, TSH, Free T4 , uric acid, lactate now Increase fluoxetine to 40mg daily Recheck in 1month Notify if worsening Culture urine 01/11/2015 Appointment: Jayna Vanessa WPtel: [phone] [phone] ACUTE ILLNESS 01/11/2015 Patient Education: Patient Medication Summary Completed 01/11/2015 Visit Plan: Lab discussed Accuchecks lucian ly Medrol dose pack Rx for back brace 11/24/2014 Appointment: Jayna Vanessa WPtel: [phone] [phone] 11/23 confirmed -mf FOLLOW UP 11/24/2014 Patient Education: Patient Medication Summary Completed 11/24/2014 Appointment: Galina Leos WPtel: [address] [place], [place] [phone] ER Follow UP 11/19/2014 Patient Education: Patient Medication Summary Completed 11/19/2014 Appointment: Conchita Capone WPtel: [address] [place], [place] [phone] ACUTE ILLNESS 10/27/2014 Patient Education: Patient Medication Summary Completed 10/27/2014 Patient Education: [facility] - Saving AutoInj - 18+ - Dynamic Portal ID Completed 10/27/2014 Appointment: Conchita Capone WPtel: [address] [place], [place] [phone] ACUTE ILLNESS 09/23/2014 Patient Education: Patient Medication Summary Completed 09/23/2014 Visit Plan: Lab discussed Continue curre nt meds 07/28/2014 Appointment: Jayna Vanessa WPtel: [address] [place], [place] [phone] 07/27 FOLLOW UP 07/28/2014 Patient Education: Patient Medication Summary Completed 07/28/2014 Patient Education: Patient Medication Summary Completed 07/21/2014 Patient Education: Patient Medication Summary Completed 04/27/2014 Appointment: Jayna Vanessa WPtel: [address] [place], [place] [phone] 03/29 FOLLOW UP 03/30/2014 Patient Education: Patient Medication Summary Completed 03/30/2014 Patient Education: [facility] - Saving AutoInj - 18+ - Dynamic Portal ID Completed 03/30/2014 Visit Plan: Lab discussed DC Vytorin Tri al of Lipitor 80mg q HS Continue Trilipix Check Lipids/CMP/thyroid and HbA1C in 4mos then fwup 11/24/2013 Appointment: Jayna Vanessa WPtel: [address] [place], [place] [phone] FOLLOW UP 11/24/2013 Patient Education: Patient Medication Summary Completed 11/24/2013 Patient Education: [facility] - Saving AutoInj - 18+ - Dynamic Portal ID Completed 11/24/2013 Visit Plan: Lab discussed Daily accuchec ks Cont current meds 08/25/2013 Appointment: Jayna Vanessa WPtel: [address] [place], [place] [phone] 08/24 FOLLOW UP 08/25/2013 Patient Education: Patient Medication Summary Completed 08/25/2013 Appointment: Jayna Vanessa WPtel: [address] [place], [place] [phone] FOLLOW UP 08/05/2013 Visit Plan: Continue Wellbutrin/Fluoxeti ne Fasting lab and fwup in 2mos 06/29/2013 Appointment: Jayna Vanessa WPtel: [address] [place], [place] [phone] 06/26 [place] [facility] [place] UP 06/29/2013 Patient Education: Patient Medication Summary Completed 06/29/2013 Visit Plan: Increase Wellbutrin to 300mg daily Add fluoxetine 20mg daily 05/26/2013 Appointment: Jayna Vanessa WPtel: [address] [place], [place] [phone] FOLLOW UP 05/26/2013 Patient Education: Patient Medication Summary Completed 05/26/2013 Visit Plan: OK to proceed with planned [facility] surgery next week Continue current meds Check fasting lab--CBC, CMP, TSH, free T4, HbA1C, Lipids, Vit D at end of this week prior to surgery 05/06/2013 Appointment: Jayna Vanessa WPtel: [address] [place], [place] [phone] FOLLOW UP 05/06/2013 Patient Education: Patient Medication Summary Completed 05/06/2013 Appointment: Jayna Vanessa WPtel: [address] [place], [place] [phone] ACUTE ILLNESS 04/23/2013 Patient Education: Patient Medication Summary Completed 04/23/2013 Patient Education: [facility] - Saving AutoInj - 18+ - Dynamic Portal ID Completed 04/23/2013 Visit Plan: Decrease Lasix to 20mg daily Leave potassium at 20meq daily Check Chem 7 in 1wk 03/31/2013 Appointment: Jayna Vanessa WPtel: [address] [place], [place] [phone] FOLLOW UP 03/31/2013 Patient Education: Patient Medication Summary Completed 03/31/2013 Appointment: Conchita Capone WPtel: [address] [place], [place] [phone] ACUTE ILLNESS 03/05/2013 Patient Education: Patient Medication Summary Completed 03/05/2013 Visit Plan: Lab discussed Continue curre nt meds Pt is going to start allergy injections Go for port placement to continue prolastin infusions 02/04/2013 Appointment: Jayna Vanessa WPtel: [address] [place], [place] [phone] ACUTE ILLNESS 02/04/2013 Patient Education: Patient Medication Summary Completed 02/04/2013 Visit Plan: 2-D ECHO discussed See Pulmo nology Pt states cough had went away with allergy meds and then has came back Continue allergy meds and add pepcid BID Discussed allergy testing 11/27/2012 Appointment: Jayna Vanessa WPtel: [address] [place], [place] [phone] FOLLOW UP 11/27/2012 Patient Education: Patient Medication Summary Completed 11/27/2012 Visit Plan: PFTS discussed Proceed with 2-D ECHO and pulmonology evaluation Pt was concerned propranolol could be cause but discussed this is likely not culpri HOMERO was DCed in 2009, is on PPI, has seen ENT, will restart allergy meds--may need allergy testing 11/11/2012 Appointment: Jayna Vanessa WPtel: [facility]3 [phone] FOLLOW UP 11/11/2012 Patient Education: Patient Medication Summary Completed 11/11/2012 Visit Plan: Hold metformin Check CMP, Li pids, TSH, Free T4, HbA1C Check PFTs 10/20/2012 Appointment: Jayna Vanessa WPtel: [address] [place], [place] [phone] 10/17 left message FOLLOW UP 10/20/2012 Patient Education: Patient Medication Summary Completed 10/20/2012 Appointment: Jayna Vanessa WPtel: [address] [place], [place] [phone] 10/13 vm FOLLOW UP 10/14/2012 Visit Plan: Discussed fluids and rest. W ill monitor for worsening symptoms/fever. Azithromycin, medrol dose pack and refil on cough syrup. Pt. will notify if symptoms worsen or persist. 09/03/2012 Appointment: Lizzie Kelly WPtel: [address] [place], [place] [phone] ACUTE ILLNESS 09/03/2012 Patient Education: Patient Medication Summary Completed 09/03/2012 Visit Plan: discussed that symptoms star edvin around [place] time. Will begin culturelle BID and monitor for fever or worsening symptoms. Fluid intake important. CBC, CMP, sed rate and stool studies. Order written for Mag lab. 07/23/2012 Appointment: Lizzie Kelly WPtel: [address] [place], [place] [phone] ACUTE ILLNESS 07/23/2012 Patient Education: Patient Medication Summary Completed 07/23/2012 Visit Plan: Increase Metformin to 1000mg po BID Accuchecks daily Continue rest of meds at current dose and low-fat, low-sugar diet with increased exercise Check fasting lab in 4mos Restart Nexium 05/20/2012 Appointment: Jayna Vanessa WPtel: [phone] [phone] patient had bad night so missed 05/06 appt...left voicemail 05/19 FOLLOW UP 05/20/2012 Patient Education: Patient Medication Summary Completed 05/20/2012 Appointment: Jayna Vanessa WPtel: [address] [place], [place] [phone] patient had bad night so missed 05/06 appt time. FOLLOW UP 05/06/2012 Appointment: Galina Leos WPtel: [address] [place], [place] [phone] ACUTE ILLNESS 04/04/2012 Patient Education: Patient Medication Summary Completed 04/04/2012 Visit Plan: Cryotherapy as above 02/20/2012 Appointment: Jayna Vanessa WPtel: [address] [place], [place] [phone] 02/18 OFFICE SURGERY 02/20/2012 Patient Education: Patient Medication Summary Completed 02/20/2012 Visit Plan: Increase Metfromin to 1000mg daily Continue all other current meds 01/02/2012 Appointment: Jayna Vanessa WPtel: [address] [place], [place] [phone] FOLLOW UP 01/02/2012 Patient Education: Patient Medication Summary Completed 01/02/2012 Appointment: Lizzie Kelly WPtel: [address] [place], [place] [phone] ACUTE ILLNESS 09/04/2011 Patient Education: Patient Medication Summary Completed 09/04/2011 Visit Plan: Finish Keflex Proceed with c olonoscopy Increase aspirin to 325mg daily for next 2wks Add Vimovo 20/500mg po Daily 08/14/2011 Appointment: Jayna Vanessa WPtel: [address] [place], [place] [phone] [facility] Follow Up 08/14/2011 Patient Education: Patient Medication Summary Completed 08/14/2011 Appointment: Lizzie Kelly WPtel: [address] [place], [place] [phone] ACUTE ILLNESS 07/31/2011 Patient Education: Patient Medication Summary Completed 07/31/2011 Visit Plan: Doxy and steroids. Codeine/g uiaf cough syrup. Pt. will monitor for worsening symptoms and notify if fever occurs. Encouraged rest and fluids. 07/25/2011 Appointment: Lizzie Kelly WPtel: [address] [place], [place] [phone] ACUTE ILLNESS 07/25/2011 Patient Education: Patient Medication Summary Completed 07/25/2011 Visit Plan: Check full lab in 3mos Radha nue with all current meds Continue PT for knee 07/12/2011 Appointment: Jayna Vanessa WPtel: [address] [place], [place] [phone] FOLLOW UP 07/12/2011 Patient Education: Patient Medication Summary Completed 07/12/2011 Visit Plan: Continue symbicort for 2 mor e weeks 05/09/2011 Appointment: Jayna Vanessa WPtel: [address] [place], [place] [phone] FOLLOW UP 05/09/2011 Patient Education: Patient Medication Summary Completed 05/09/2011 Appointment: Jayna Vanessa WPtel: [address] [place], [place] [phone] ER Follow UP 05/02/2011 Patient Education: Patient Medication Summary Completed 05/02/2011 Visit Plan: Pt. has recently finished ro und of Cefdinir with no improvement. Chest x-ray, CBC, CMP and mycoplasma order given to pt. Pt. will start Doxycycline. 04/25/2011 Appointment: Lizzie Kelly WPtel: [address] [place], [place] [phone] FOLLOW UP 04/25/2011 Patient Education: Patient Medication Summary Completed 04/25/2011 Appointment: Lizzie Kelly WPtel: [address] [place], [place] [phone] ACUTE ILLNESS 04/04/2011 Patient Education: Patient Medication Summary Completed 04/04/2011 Appointment: Lizzie Kelly WPtel: [address] [place], [place] [phone] ACUTE ILLNESS 04/03/2011 Visit Plan: Decrease Synthroid to 150mcg daily Repeat TSH and Free T4 in 2mos Knee injection as above 03/01/2011 Appointment: Jayna Vanessa WPtel: [address] [place], [place] [phone] 03/01/2011 Patient Education: Patient Medication Summary Completed 03/01/2011 Visit Plan: Increase Synthroid to 175mcg po daily Check TSH, Free T4 in 8wks Injection given to knee as above Continue Pt 01/04/2011 Appointment: Jayna Vanessa WPtel: [address] [place], [place] [phone] FOLLOW UP 01/04/2011 Patient Education: Patient Medication Summary Completed 01/04/2011 Visit Plan: Septra DS, Mupirocin topical . Pt. will observe wound and report worsening symptoms. 12/07/2010 Appointment: Lizzie Kelly WPtel: [address] [place], [place] [phone] ACUTE ILLNESS 12/07/2010 Patient Education: Patient Medication Summary Completed 12/07/2010 Visit Plan: Increase Synthroid to 150mcg po daily Add Metformin Diet and exercise discussed at length again Repeat thyroid US Add Vit D level Will see if polydipsia improves with metformin 10/09/2010 Appointment: Jayna Vanessa WPtel: [address] [place], [place] [phone] FOLLOW UP 10/09/2010 Patient Education: Patient Medication Summary Completed 10/09/2010 Visit Plan: Increase Synthroid to 125mcg daily Decrease Vit D 50,000 u three times a week Discussed HRT Proceed with sleep study Fwup pending sleep study results 08/07/2010 Appointment: Jayna Vanessa WPtel: [address] [place], [place] [phone] FOLLOW UP 08/07/2010 Patient Education: Patient Medication Summary Completed 08/07/2010 Visit Plan: Decrease Synthroid to 100mcg QD Check thyroid lab in 2mos Check estradiol levels in 2mos--discussed HRT Increase Vit D 50,000u to 1 daily M-F 06/06/2010 Appointment: Jayna Vanessa WPtel: [address] [place], [place] [phone] ACUTE ILLNESS 06/06/2010 Patient Education: Patient Medication Summary Completed 06/06/2010 Visit Plan: Injections to knees as above 04/12/2010 Appointment: Jayna Vanessa WPtel: [address] [place], [place] [phone] US OFFICE SURGERY 04/12/2010 Patient Education: Patient Medication Summary Completed 04/12/2010 Visit Plan: Decrease Synthroid to 175mcg QD Check lab in 2mos Change daily Vit D to weekly 03/20/2010 Appointment: Jayna Vanessa WPtel: [address] [place], [place] [phone] ESTABLISHED PATIENT 03/20/2010 Patient Education: Patient Medication Summary Completed 03/20/2010 Appointment: Jayna Vanessa WPtel: [address] [place], [place] [phone] ACUTE ILLNESS 01/30/2010 Patient Education: Patient Medication Summary Completed 01/30/2010 Appointment: Jayna Vanessa WPtel: [address] [place], [place] [phone] ACUTE ILLNESS 01/09/2010 Patient Education: Patient Medication Summary Completed 01/09/2010 Appointment: Jayna Vanessa WPtel: [address] [place], [place] [phone] BP CHECK 11/07/2009 Patient Education: Patient Medication Summary Completed 11/07/2009 Appointment: Jayna Vanessa WPtel: [address] [place], [place] [phone] OFFICE SURGERY 10/26/2009 Patient Education: Patient Medication Summary Completed 10/26/2009 Appointment: Lizzie Kelly WPtel: [address] [place], [place] [phone] OFFICE SURGERY 10/17/2009 Patient Education: Patient Medication [...] up appnt. 10/04/2009 Appointment: Lizzie Kelly WPtel: [address] [place], [place] [phone] ACUTE ILLNESS 10/04/2009 Patient Education: Patient Medication Summary Completed 10/04/2009 Visit Plan: E-scribed refils. Pt. report s that she normally has lab work drawn and orders are given (faxed) to her normal lab facility by Patricia. Pt. states her migraine headaches have abated for now and that she is going to see her migraine doctor in [place] in the near future(Dr Cook) Pt will seek re-eval as necessary for acute issues. 09/21/2009 Appointment: Lizzie Kelly WPtel: [address] [place], [place] [phone] [place] CHECK UP 09/21/2009 Patient Education: Patient Medication Summary Completed 09/21/2009 Appointment: Lizzie Kelly WPtel: [address] [place] [phone] [place] CHECK UP 09/20/2009 Appointment: Lizzie Kelly WPtel: [address] [place], [place] [phone] [place] FOLLOW UP 09/19/2009 Referral: Alf Lang WPtel: #1 [id number] [place] Referral Appointment Requested Referral: Singh Pina WPtel: [address] [facility] [id number] [place] Referral Appointment Requested Referral: Aditya Stone WPtel: [address] [id number] [place] Referral Appointment Requested Instructions Comment Date [...] going to see her migraine doctor in [place] in the near future(Dr Cook) Pt will [...]
--- OUTSIDE RECORDS SUMMARY | 2022-09-10 17:07 | XMS REPORT | CCD ---
Author Author Marcella Vanessa D.O. 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 Name Role Phone Jayna Vanessa D.O., PP Unavailable CCM Unavailable Summary Purpose Interface Exchange Insurance Providers Payer name Policy type / Coverage type Covered libertarian ID Effective Begin Date Effective End Date AETNA Commercial Insurance [id number] Unknown Commercial Insurance [id number] Unknown Family history Side Diagnosis Age At Onset Heart disease Unknown Diabetes Unknown Sister Diagnosis Age At Onset Diabetes Unknown Brother Diagnosis Age At Onset Diabetes Unknown Mother Diagnosis Age At Onset Heart disease Unknown Father Diagnosis Age At Onset Heart disease Unknown Social History Social History Element Codes Description Effective Dates Tobacco history SNOMED CT: 639636675 Never smoker 04/04/2011 Marital status Unknown 09/21/2009 [...] gastroenteritis ICD-10: K52.9 ICD-9: 558.9 07/05/2020 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 11/28/2016 Active [...] ANXIETY STATE NOS ICD-9: 300.00 03/05/2013 Active 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 02/04/2013 A ctive DYSPNEA [...] Start Date Stop Date Status Fill Instructions ciprofloxacin 250 mg tablet RxNorm: 685178 Take 1 Tablet(s) Ora l Q12H 06/29/2022 07/03/2022 Inactive levothyroxine 150 mcg tablet RxNorm: 997600 Take 1 Tablet(s) Or al QAM 06/03/2022 08/01/2022 Inactive Wellbutrin XL 300 mg 24 hr tablet, extended release RxNorm: 930192 Take 1 Tablet(s) Oral QAM replaces 150mg dose 05/28/2022 08/25/2022 Active Xyzal 5 mg tablet RxNorm: 529079 Take 1 Tablet(s) Oral QPM 05/10/2010/06/2022 Active Claritin 10 mg tablet RxNorm: 308940 Take 1 Tablet(s) Oral QAM 04/2409/06/2022 Active Flonase Allergy Relief 50 mcg/actuation nasal spray,suspensi on RxNorm: 5243371 Take 1 Hankins Nasal two times a day 05/10/2022 06/08/2022 Inactive Wellbutrin XL 150 mg 24 hr tablet, extended release RxNorm: 820193 Take 1 Tablet(s) Oral QAM 05/10/2022 05/27/2022 Inactive sumatriptan 100 mg tablet RxNorm: 916900 1 Tablet(s) Or al after onset of migraine; may repeat after 2 hours if headache returns, not to exceed 200mg in 24hrs replaces rizatriptan 04/19/2022 04/19/2022 Inactive sumatriptan 100 mg tablet RxNorm: 731787 1 Tablet(s) Or al after onset of migraine; may repeat after 2 hours if headache returns, not to exceed 200mg in 24hrs replaces rizatriptan 04/19/2022 04/19/2022 Inactive propranolol 20 mg tablet RxNorm: 027432 TAKE 1 TABLET BY MOUTH TWICE DAILY 04/18/2022 10/14/2022 Active rizatriptan 10 mg disintegrating tablet RxNorm: 636503 Take 1 Tablet(s) Oral on top of tongue, allow to dissolve then swallow once, may repeat every 2 hrs; max 30 mg/24hrs 04/18/2022 04/18/2022 Inactive prednisone 20 mg tablet RxNorm: 727122 Take 1 Tablet(s) Oral tw o times a day 02/15/2022 02/21/2022 Inactive Nurtec ODT 75 mg disintegrating tablet RxNorm: 4795552 T ary 1 Tablet(s) Oral per 24 hours as needed for migraine 02/09/2022 02/09/2022 Inactive Nurtec ODT 75 mg disintegrating tablet RxNorm: 5277235 T ary 1 Tablet(s) Oral per 24 hours as needed for migraine 02/09/2022 02/09/2022 Inactive fluticasone propionate 50 mcg/actuation nasal spray,suspensi on RxNorm: 3022489 SPRAY ONE SPRAY IN EACH NOSTRIL TWICE DAILY NEEDED 02/05/20222021 Inactive levothyroxine 150 mcg tablet RxNorm: 572719 Take 1 Tablet(s) Or al QAM 02/04/2022 02/04/2022 Inactive albuterol sulfate HFA 90 mcg/actuation aerosol inhaler RxNor m: 7356793 Inhale 2 Puff(s) Oral Q4H as needed 01/05/2022 04/04/2022 Inactive pantoprazole 40 mg tablet,delayed release RxNorm: 283157 Take 1 Tablet(s) Oral QD 01/04/2022 07/02/2022 Inactive propranolol 20 mg tablet RxNorm: 861016 TAKE 1 TABLET BY MOUTH TWICE DAILY 01/04/2022 04/17/2022 Inactive levothyroxine 150 mcg tablet RxNorm: 569977 Take 1 Tablet(s) Or al QAM 12/05/2021 12/05/2021 Inactive metronidazole 500 mg tablet RxNorm: 167115 Take 1 Table t(s) Oral two times a day 11/29/2021 12/05/2021 Inactive Singulair 10 mg tablet RxNorm: 704521 Take 1 Tablet(s) Oral QPM 06/202105/09/2022 Inactive Diflucan 100 mg tablet RxNorm: 598730 Take 1 Tablet(s) Oral QD 06/202111/28/2021 Inactive pantoprazole 40 mg tablet,delayed release RxNorm: 622123 Take 1 Tablet(s) Oral QD 11/06/2021 11/06/2021 Inactive fluticasone propionate 50 mcg/actuation nasal spray,suspensi on RxNorm: 6214278 SPRAY ONE SPRAY IN EACH NOSTRIL TWICE DAILY NEEDED 11/03/20212021 Inactive scopolamine 1 mg over 3 days transdermal patch RxNorm: 31880 2 Apply 1 Unit Dose Transdermal Q72H behind ear 10/30/2021 02/05/2022 Inactive albuterol sulfate HFA 90 mcg/actuation aerosol inhaler RxNor m: 4987070 Inhale 2 Puff(s) Oral Q4H as needed 10/05/2021 11/24/2021 Inactive pantoprazole 40 mg tablet,delayed release RxNorm: 582545 Take 1 Tablet(s) Oral QD 10/05/2021 10/05/2021 Inactive meloxicam 7.5 mg tablet RxNorm: 714188 Take 1 Tablet(s) Oral QD for pain 09/05/2021 09/11/2021 Inactive baclofen 10 mg tablet RxNorm: 273499 Take 0.5-1 Tablet( s) Oral three times per week as needed for muscle spasm 09/05/2021 02/05/2022 Inactive prednisone 20 mg tablet RxNorm: 658123 Take 1 Tablet(s) Oral QD 08/202108/28/2021 Inactive pantoprazole 40 mg tablet,delayed release RxNorm: 495136 Take 1 Tablet(s) Oral QD 07/07/2021 09/04/2021 Inactive fluticasone propionate 50 mcg/actuation nasal spray,suspensi on RxNorm: 7130798 Take 1 Hankins Nasal two times a day in each nostrilas needed 07/04/2021 10/01/2021 Inactive Decadron 6 mg tablet RxNorm: 315558 Take 1 Tablet(s) Oral QD 202107/08/2021 Inactive albuterol sulfate HFA 90 mcg/actuation aerosol inhaler RxNor m: 6153251 Inhale 2 Puff(s) Oral Q4H as needed 06/08/2021 09/05/2021 Inactive propranolol 20 mg tablet RxNorm: 324267 TAKE 1 TABLET BY MOUTH TWICE DAILY 06/08/2021 06/08/2021 Inactive pantoprazole 40 mg tablet,delayed release RxNorm: 539593 Take 1 Tablet(s) Oral QD 04/09/2021 06/07/2021 Inactive ProAir HFA 90 mcg/actuation aerosol inhaler RxNorm: 458014 2 Puff(s) Inhalation Q4H as needed 03/13/2021 03/13/2021 Inactive citalopram 10 mg tablet RxNorm: 189316 1 Tablet(s) Oral two antonio es a day 03/13/2021 02/05/2022 Inactive levothyroxine 150 mcg tablet RxNorm: 060058 TAKE 1 Tabl et BY MOUTH EVERY MORNING (REPLACES 137 MCG DOSE) 03/09/2021 03/09/2021 Inactive pantoprazole 40 mg tablet,delayed release RxNorm: 023100 Take 1 Tablet(s) Oral QD 02/08/2021 04/08/2021 Inactive triamcinolone acetonide 0.1 % topical cream RxNorm: 2763431 Take Application Topical two times a day to arm rash 01/19/2021 01/19/2021 Inactive prednisone 20 mg tablet RxNorm: 148670 Take 1 Tablet(s) Oral QD 01/23/2021 Inactive levothyroxine 150 mcg tablet RxNorm: 085851 Take 1 Tabl et(s) Oral QAM replaces 137mcg dose 01/03/2021 01/03/2021 Inactive prednisone 20 mg tablet RxNorm: 277577 Take 2 Tablet(s) Oral QD 01/202112/03/2020 Inactive promethazine-DM 6.25 mg-15 mg/5 mL oral syrup RxNorm: 594879 Take 5 Milliliter(s) Oral Every 6 hours as needed, not to exceed 30 mL in 24 hours 11/29/2020 12/03/2020 Inactive doxycycline hyclate 100 mg capsule RxNorm: 2276478 1 Cap kimi(s) Oral two times a day 09/29/2020 10/05/2020 Inactive Lalita-D 12 Hour 60 mg-120 mg tablet,extended release RxNor m: 907568 1 Tablet(s) Oral QD 09/19/2020 10/03/2020 Inactive ProAir HFA 90 mcg/actuation aerosol inhaler RxNorm: 566610 2 Inhalation Q4H as needed 09/19/2020 09/19/2020 Inactive propranolol 20 mg tablet RxNorm: 720858 TAKE 1 TABLET BY MOUTH TWICE DAILY 09/15/2020 09/15/2020 Inactive pantoprazole 40 mg tablet,delayed release RxNorm: 033901 1 Tabl et(s) Oral QD 09/09/2020 09/08/2020 Inactive pantoprazole 40 mg tablet,delayed release RxNorm: 141235 1 Tabl et(s) Oral QD 09/09/2020 11/07/2020 Inactive propranolol 20 mg tablet RxNorm: 327985 TAKE 1 TABLET BY MOUTH TWICE DAILY 08/24/2020 09/09/2020 Inactive levothyroxine 137 mcg tablet RxNorm: 185369 1 Tablet(s) Oral QD 08/202001/02/2021 Inactive ozqugnua-udwqmaxlu-okrtdayr 3.5 mg/mL-10,000 unit/mL-0 .1% eye drops RxNorm: 838685 4 Drop(s) Otic three times a day 08/10/2020 02/05/2022 Inactive prednisone 20 mg tablet RxNorm: 887032 1 Tablet(s) Oral two antonio es a day 08/01/2020 08/08/2020 Inactive pantoprazole 40 mg tablet,delayed release RxNorm: 437935 1 Tabl et(s) Oral QD 07/13/2020 09/08/2020 Inactive ondansetron HCl 4 mg tablet RxNorm: 702840 1 Tablet(s) Oral Q4H as needed for nausea 07/13/2020 05/09/2022 Inactive levothyroxine 137 mcg tablet RxNorm: 941804 1 Tablet(s) Oral QD 08/23/2020 Inactive pantoprazole 40 mg tablet,delayed release RxNorm: 044064 1 Tabl et(s) Oral QD 07/13/2020 07/12/2020 Inactive ondansetron HCl 4 mg tablet RxNorm: 871358 1 Tablet(s) Oral Q4H as needed for nausea 07/05/2020 07/12/2020 Inactive Flagyl 500 mg tablet RxNorm: 635242 1 Tablet(s) Oral three time s a day 07/05/2020 07/12/2020 Inactive Fish Oil 1,000 mg (120 mg-180 mg) capsule RxNorm: 1 Caps ule(s) Oral QD 06/23/2020 09/18/2020 Inactive rosuvastatin 10 mg tablet RxNorm: 591704 1 Tablet(s) Oral MWF 06/2306/22/2020 Inactive rosuvastatin 10 mg tablet RxNorm: 422648 1 Tablet(s) Oral MWF 06/2302/05/2022 Inactive fluconazole 100 mg tablet RxNorm: 579598 1 Tablet(s) Oral QOD 05/1706/21/2020 Inactive Macrobid 100 mg capsule RxNorm: 912600 1 Capsule(s) Oral two ti mes a day 05/17/2020 05/24/2020 Inactive levothyroxine 137 mcg tablet RxNorm: 822068 TAKE 1 TABLET BY [facility] [place] DAILY 05/16/2020 07/12/2020 Inactive Eliquis 5 mg tablet RxNorm: 4288847 1 Tablet(s) Oral two times a da y 04/25/2020 02/05/2022 Inactive propranolol 20 mg tablet RxNorm: 900631 TAKE 1 TABLET BY MOUTH TWICE DAILY 04/25/2020 08/23/2020 Inactive doxycycline hyclate 100 mg capsule RxNorm: 3573893 1 Cap kimi(s) Oral two times a day 03/24/2020 03/31/2020 Inactive doxycycline hyclate 100 mg capsule RxNorm: 2845930 1 Cap kimi(s) Oral two times a day 03/24/2020 03/23/2020 Inactive propranolol 20 mg tablet RxNorm: 546048 TAKE 1 TABLET BY MOUTH TWICE DAILY 03/15/2020 04/13/2020 Inactive Eliquis 5 mg tablet RxNorm: 2719524 1 Tablet(s) Oral two times a da y 03/14/2020 04/24/2020 Inactive Eliquis 5 mg tablet RxNorm: 1454078 1 Tablet(s) Oral two times a da y 03/14/2020 03/13/2020 Inactive levofloxacin 500 mg tablet RxNorm: 316426 1 Tablet(s) Oral QD 02/1802/26/2020 Inactive levofloxacin 500 mg tablet RxNorm: 845421 1 Tablet(s) Oral QD 02/1802/18/2020 Inactive Tessalon Perles 100 mg capsule RxNorm: 500144 1 Capsule (s) Oral three times a day as needed 02/16/2020 02/25/2020 Inactive levothyroxine 137 mcg tablet RxNorm: 153667 TAKE 1 TABLET BY [facility] DAILY 02/15/2020 03/15/2020 Inactive ProAir HFA 90 mcg/actuation aerosol inhaler RxNorm: 747731 2 Inhalation Q4H as needed 02/11/2020 09/18/2020 Inactive Medrol (Isaiah) 4 mg tablets in a dose pack RxNorm: 315199 Tablet( s) Oral 02/11/2020 02/11/2020 Inactive levothyroxine 137 mcg tablet RxNorm: 013806 TAKE 1 TABLET BY [facility] DAILY 12/16/2019 01/14/2020 Inactive propranolol 20 mg tablet RxNorm: 324203 TAKE 1 TABLET BY MOUTH TWICE DAILY 12/16/2019 01/14/2020 Inactive levothyroxine 137 mcg tablet RxNorm: 630734 TAKE 1 TABLET BY [facility] DAILY 10/16/2019 11/14/2019 Inactive prednisone 20 mg tablet RxNorm: 116925 1 Tablet(s) Oral two times a day for rash/hives 09/29/2019 10/04/2019 Inactive Probiotic 10 billion cell capsule RxNorm: 8754729 1 Capsule(s) O ral QD 09/14/2019 02/10/2020 Inactive Bactrim DS 800 mg-160 mg tablet RxNorm: 698142 1 Tablet(s) Oral two times a day 09/14/2019 09/13/2019 Inactive citalopram 10 mg tablet RxNorm: 360285 1 Tablet(s) Oral two antonio es a day 09/14/2019 12/20/2019 Inactive hydroxychloroquine 200 mg tablet RxNorm: 635141 1 Table t(s) Oral two times a day 09/14/2019 02/05/2022 Inactive Bactrim DS 800 mg-160 mg tablet RxNorm: 626654 1 Tablet(s) Oral two times a day 09/14/2019 09/24/2019 Inactive Cipro 250 mg tablet RxNorm: 360180 1 Tablet(s) Oral two times a day 09/02/2019 09/08/2019 Inactive levothyroxine 137 mcg tablet RxNorm: 655167 1 Tablet(s) Oral QD 10/10/2019 Inactive levothyroxine 137 mcg tablet RxNorm: 841199 1 Tablet(s) Oral QD 08/11/2019 Inactive propranolol 20 mg tablet RxNorm: 347354 TAKE 1 TABLET BY MOUTH TWICE DAILY 06/18/2019 12/14/2019 Inactive 06/18/2019 11:09:41 AM Cipro 250 mg tablet RxNorm: 015729 1 Tablet(s) Oral two times a day 04/17/2019 04/16/2019 Inactive Cipro 250 mg tablet RxNorm: 002730 1 Tablet(s) Oral two times a day 04/17/2019 04/24/2019 Inactive Macrobid 100 mg capsule RxNorm: 514525 1 Capsule(s) Oral two ti mes a day 04/15/2019 04/16/2019 Inactive metronidazole 500 mg tablet RxNorm: 955876 1 Tablet(s) Oral thr ee times a day 03/18/2019 03/28/2019 Inactive Bactrim DS 800 mg-160 mg tablet RxNorm: 677814 1 Tablet(s) Oral two times a day 03/18/2019 03/18/2019 Inactive Cipro 250 mg tablet RxNorm: 274153 1 Tablet(s) PO BID 01/26/201901/22 Inactive Flagyl 500 mg tablet RxNorm: 229238 1 Tablet(s) PO TID 01/26/201904/2019 Inactive prednisone 20 mg tablet RxNorm: 820678 1 Tablet(s) PO B ID for 4 days then 1 po daily for 4 days 01/08/2019 03/17/2019 Inactive doxycycline hyclate 100 mg capsule RxNorm: 3799181 1 Capsule(s) PO BID 01/08/2019 01/14/2019 Inactive doxycycline hyclate 100 mg capsule RxNorm: 8344454 1 Capsule(s) PO BID 01/08/2019 01/07/2019 Inactive propranolol 20 mg tablet RxNorm: 975739 1 Tablet(s) PO BID 12/24/1906/17/2019 Inactive Bactrim DS 800 mg-160 mg tablet RxNorm: 152725 1 Tablet (s) PO BID repeat urine culture 48 hours after antibiotics completed. 12/15/2018 12/14/2018 In active Bactrim DS 800 mg-160 mg tablet RxNorm: 859974 1 Tablet (s) PO BID repeat urine culture 48 hours after antibiotics completed. 12/15/2018 12/19/2018 In active levothyroxine 137 mcg tablet RxNorm: 490413 1 Tablet(s) PO QD 12/0906/06/2019 Inactive meclizine 25 mg tablet RxNorm: 832985 1 Tablet(s) PO TID for di zziness 10/30/2018 11/08/2018 Inactive doxycycline hyclate 100 mg tablet RxNorm: 7290230 1 Tablet(s) PO BI D 10/07/2018 10/16/2018 Inactive albuterol sulfate HFA 90 mcg/actuation aerosol inhaler RxNor m: 199833 2 Puff(s) INH Q4H as needed 10/07/2018 02/10/2020 Inactive chlorpheniramine 4 mg tablet RxNorm: 4619794 1 Tablet(s) PO QHS for allergies 10/07/2018 03/17/2019 Inactive Tessalon 200 mg capsule RxNorm: 329884 1 Capsule(s) PO TID 10/08/1910/26/2018 Inactive doxycycline hyclate 100 mg tablet RxNorm: 4083625 1 Tablet(s) PO BI D 10/07/2018 10/06/2018 Inactive Tessalon 200 mg capsule RxNorm: 027501 1 Capsule(s) PO TID 10/08/1910/06/2018 Inactive levothyroxine 137 mcg tablet RxNorm: 105003 1 Tablet(s) PO QD 08/0512/02/2018 Inactive propranolol 20 mg tablet RxNorm: 497268 1 Tablet(s) PO BID 06/23/2012/19/2018 Inactive chlorpheniramine 4 mg tablet RxNorm: 9781754 1 Tablet(s) PO QHS for allergies 06/23/2018 08/21/2018 Inactive levothyroxine 137 mcg tablet RxNorm: 525765 1 Tablet(s) PO QD 06/0308/01/2018 Inactive levothyroxine 137 mcg tablet RxNorm: 081202 1 Tablet(s) PO QD 06/0306/02/2018 Inactive Synthroid 150 mcg tablet RxNorm: 286192 1 Tablet(s) PO QD 04/03/2018 06/22/2018 Inactive Synthroid 150 mcg tablet RxNorm: 892926 1 Tablet(s) PO QD 04/03/2018 04/02/2018 Inactive propranolol 20 mg tablet RxNorm: 745213 1 Tablet(s) PO BID 03/17/20 18 06/14/2018 Inactive propranolol 20 mg tablet RxNorm: 988967 1 Tablet(s) PO BID 03/17/20 18 06/21/2020 Inactive Lancets,Ultra Thin RxNorm: Miscellaneous Use to test blood sugar daily and as needed (Dx: E11.65) 02/28/2018 05/09/2022 Inactive Contour Test Strips RxNorm: Miscellaneous Test b lood sugar daily and as needed (Dx: E11.65) 02/28/2018 05/09/2022 Inactive Contour Meter RxNorm: 1 Miscellaneous DX: E11.65 02/27/20182021 Inactive DX: E11.65 Synthroid 175 mcg tablet RxNorm: 826653 1 Tablet(s) PO QD 01/28/2018 04/02/2018 Inactive Synthroid 175 mcg tablet RxNorm: 251864 1 Tablet(s) PO QD 01/16/2018 04/02/2018 Inactive Medrol (Isaiah) 4 mg tablets in a dose pack RxNorm: 654467 Tablet(s) P O 10/16/2017 01/15/2018 Inactive cyclobenzaprine 7.5 mg tablet RxNorm: 566614 1/2-1 Tablet(s) PO TID as needed 10/16/2017 06/22/2018 Inactive pantoprazole 40 mg tablet,delayed release RxNorm: 269168 1 Tabl et(s) PO QD 08/21/2017 06/22/2018 Inactive Nexium 40 mg capsule,delayed release RxNorm: 585859 1 Capsule(s ) PO QD 08/20/2017 08/20/2017 Inactive doxycycline hyclate 100 mg capsule RxNorm: 9400924 1 Capsule(s) PO BID 08/13/2017 08/12/2017 Inactive doxycycline hyclate 100 mg capsule RxNorm: 0700509 1 Capsule(s) PO BID 08/13/2017 08/19/2017 Inactive Tessalon Perles 100 mg capsule RxNorm: 252312 1 Capsule(s) PO T ID as needed 07/29/2017 08/07/2017 Inactive prednisone 20 mg tablet RxNorm: 258380 1 Tablet(s) PO BID 07/25/2017 07/27/2017 Inactive albuterol sulfate HFA 90 mcg/actuation aerosol inhaler RxNor m: 067036 2 Puff(s) INH Q4H as needed 07/25/2017 10/06/2018 Inactive doxycycline hyclate 100 mg capsule RxNorm: 2395483 1 Capsule(s) PO BID 06/10/2017 06/19/2017 Inactive prednisone 20 mg tablet RxNorm: 791337 1 Tablet(s) PO T ID for 2 days then 1 po BID for 2 days then 1 daily for 3 days 06/10/2017 08/12/2017 Inactive fenofibrate micronized 134 mg capsule RxNorm: 402926 TAKE 1 CAP KIMI DAILY 06/03/2017 06/22/2018 Inactive Zithromax Z-Isaiah 250 mg tablet RxNorm: 382048 Tablet(s) PO Take as directed 05/28/2017 06/09/2017 Inactive prednisone 20 mg tablet RxNorm: 063080 2 Tablet(s) PO QD 05/28/2017 1 08/01/2016 Inactive Tessalon Perles 100 mg capsule RxNorm: 048607 1 Capsule(s) PO T ID as needed 05/28/2017 06/09/2017 Inactive Janumet XR 100 mg-1,000 mg tablet,extended release RxNorm: 1 112161 1 Tablet(s) PO QD 02/14/2017 06/22/2018 Inactive fluoxetine 40 mg capsule RxNorm: 268672 1 Capsule(s) PO QD 02/15/20 17 06/22/2018 Inactive Vitamin D2 50,000 unit capsule RxNorm: 215410 1 Capsule (s) PO TAKE 1 CAPSULE BY MOUTH TWICE WEEKLY 02/11/2017 07/10/2017 Inactive Generic For:* DRISDOL [id number] 02/03/2015 10:10:59 AM Janumet XR 100 mg-1,000 mg tablet,extended release RxNorm: 1 929567 1 Tablet(s) PO QD 09/24/2016 10/06/2018 Inactive Vitamin D2 50,000 unit capsule RxNorm: 979612 Capsule(s ) TAKE 1 CAPSULE BY MOUTH TWICE WEEKLY 09/11/2016 02/11/2017 Inactive Generic For:*DRI SDOL [id number] 02/03/2015 10:10:59 AM Pepcid 20 mg tablet RxNorm: 061474 Tablet(s) PO TAKE 1 TABLET BY MOUTH TWICE DAILY. 06/14/2016 06/13/2016 Inactive fluoxetine 40 mg capsule RxNorm: 569183 1 Capsule(s) PO QD 06/14/20 16 12/10/2016 Inactive loratadine 10 mg tablet RxNorm: 299984 1 Tablet(s) PO QD 1 Tabl et(s) PO BID 06/14/2016 04/03/2017 Inactive [AttnRPh: Saving ryan ly/adjudicate RxGRP:SG20 RxBIN:[id number] RxPCN: ID#:[id number]] Vitamin D2 50,000 unit capsule RxNorm: 154268 Capsule(s ) TAKE 1 CAPSULE BY MOUTH TWICE WEEKLY 06/14/2016 09/10/2016 Inactive Generic For:*VERN FREEDMAN [id number] 02/03/2015 10:10:59 AM Synthroid 175 mcg tablet RxNorm: 183452 1 Tablet(s) PO Saturday t hrough Saturday QD 06/05/2016 01/15/2018 Inactive Synthroid 150 mcg tablet RxNorm: 466333 1 Tablet(s) PO Sat and Sun 11/09/2015 06/04/2016 Inactive Synthroid 175 mcg tablet RxNorm: 776201 1 Tablet(s) PO Saturday t hrough Saturday11/09/2015 06/04/2016 Inactive Synthroid 150 mcg tablet RxNorm: 592446 1 Tablet(s) PO Sat and Sun , Th, Sat, Sun 11/09/2015 11/08/2015 Inactive Janumet XR 100 mg-1,000 mg tablet,extended release RxNorm: 1 945564 TAKE 1 TABLET DAILY 09/30/2015 09/24/2016 Inactive azithromycin 500 mg tablet RxNorm: 316363 1 Tablet(s) PO QD 016 07/25/2015 Inactive azithromycin 500 mg tablet RxNorm: 418981 1 Tablet(s) PO QD 016 08/01/2015 Inactive loratadine 10 mg tablet RxNorm: 409752 1 Tablet(s) PO BID 04/06/2015 06/14/2016 Inactive [AttnRPh: Saving apply/adjudicate RxGRP: SG20 RxBIN:[id number] RxPCN: ID#:[id number]] Synthroid 175 mcg tablet RxNorm: 397083 1 Tablet(s) PO M, W, F 10/0 10/201411/08/2015 Inactive Synthroid 150 mcg tablet RxNorm: 615156 1 Tablet(s) PO QD , T h, Sat, Sun 03/28/2015 11/08/2015 Inactive propranolol 20 mg tablet RxNorm: 119383 1 Tablet(s) PO BID 02/09/20 15 06/13/2016 Inactive fluoxetine 40 mg capsule RxNorm: 913315 1 Capsule(s) PO QD 02/09/20 15 06/14/2016 Inactive Vitamin D2 50,000 unit capsule RxNorm: 116520 TAKE 1 CA PSULE BY MOUTH TWICE WEEKLY 02/03/2015 06/14/2016 Inactive Generic For:*VERN FREEDMAN [id number] 02/03/2015 10:10:59 AM Lipitor 80 mg tablet RxNorm: 686094 1 Tablet(s) PO QD 01/24/201507/26 Inactive [AttnRPh: Saving apply/adjudicate RxGRP: SG20 RxBIN:[id number] RxPCN: ID#:[id number]] Bactrim DS 800 mg-160 mg tablet RxNorm: 396493 1 Tablet(s) PO BID 0 01/12/2015 01/11/2015 Inactive Synthroid 150 mcg tablet RxNorm: 512529 1 Tablet(s) PO QD 01/12/2015 03/27/2015 Inactive Bactrim DS 800 mg-160 mg tablet RxNorm: 760354 1 Tablet(s) PO BID 0 01/12/2015 01/18/2015 Inactive fluoxetine 40 mg capsule RxNorm: 338042 1 Capsule(s) PO QD 01/12/20 15 02/07/2015 Inactive Synthroid 137 mcg tablet RxNorm: 469368 1 Tablet(s) PO QD 12/08/2014 01/11/2015 Inactive [AttnRPh: Saving apply/adjudicate RxGRP: SG20 RxBIN:[id number] RxPCN: ID#:[id number]] Medrol (Isaiah) 4 mg tablets in a dose pack RxNorm: 861966 6 Tablet(s) PO QD --then as directed 11/24/2014 11/29/2014 Inactive albuterol sulfate HFA 90 mcg/actuation aerosol inhaler RxNor m: 334100 2 Puff(s) INH Q4H as needed 10/27/2014 07/24/2017 Inactive phenazopyridine 100 mg tablet RxNorm: 6087024 1 Tablet(s) PO TID 11/07/2015 Inactive [AttnRPh: Saving apply/adjud icate RxGRP:SG20 RxBIN:[id number] RxPCN:HT ID#:[id number]] Macrobid 100 mg capsule RxNorm: 510363 1 Capsule(s) PO BID 10/28/19 15 11/02/2014 Inactive [SAVINGS FOR NON-COVERED RUBIO GS -- BIN:392378, PCN: ASPROD1, Group: XXXXX, ID# [id number], Questions: . THIS IS NOT INSURANCE.] prednisone 20 mg tablet RxNorm: 320277 1 Tablet(s) PO BID 10/27/2014 10/31/2014 Inactive AttnRPh: Saving apply/adjudicate RxGRP:S G20 RxBIN:[id number] RxPCN:HT ID#:[id number]: Saving apply/adjudicate RxGRP:SG20 RxBIN:[id number] RxPCN:HT ID#:[id number] Macrobid 100 mg capsule RxNorm: 373816 1 Capsule(s) PO BID 09/24/19 15 09/29/2014 Inactive [SAVINGS FOR NON-COVERED RUBIO GS -- BIN:041426, PCN: ASPROD1, Group: XXXXX, ID# [id number], Questions: . THIS IS NOT INSURANCE.] phenazopyridine 100 mg tablet RxNorm: 8480016 1 Tablet(s) PO TID 09/24/2014 Inactive [SAVINGS FOR NON-COVERED RUBIO GS -- BIN:173094, PCN: ASPROD1, Group: XXXXX, ID# [id number], Questions: . THIS IS NOT INSURANCE.] propranolol 60 mg tablet RxNorm: 063975 1 Tablet(s) PO QD 07/26/2014 02/07/2015 Inactive [SAVINGS FOR UNINSURED PATIENTS -- BIN:0 33252, PCN: ASPROD1, Group: [id number], ID# [id number], Process claim through [employer] (Inspect Manager), for questions: . THIS IS NOT INSURANCE.] loratadine 10 mg tablet RxNorm: 000454 1 Tablet(s) PO BID 07/12/2014 07/11/2014 Inactive [AttnRPh: Saving apply/adjudicate RxGRP: SG20 RxBIN:[id number] RxPCN: ID#:[id number]] loratadine 10 mg tablet RxNorm: 691142 1 Tablet(s) PO BID 07/12/2014 10/06/2018 Inactive [SAVINGS FOR UNINSURED PATIENTS -- BIN:[id number], PCN: [id number], Group: [id number], ID# [id number], Process claim through [employer] (Inspect Manager), for questions: . THIS IS NOT INSURANCE.] Vitamin D2 50,000 unit capsule RxNorm: 440568 1 Capsule (s) PO Take 1 capsule by mouth twice weekly 05/18/2014 02/02/2015 Inactive Pepcid 20 mg tablet RxNorm: 617486 TAKE 1 TABLET BY MOUTH TWICE DAILY. 05/18/2014 06/14/2016 Inactive Generic For:PEPCID 2 0MG 05/18/2014 11:28:51 AM Janumet XR 100 mg-1,000 mg tablet,extended release RxNorm: 1 610064 1 Tablet(s) PO QD 05/12/2014 08/09/2014 Inactive [SAVINGS FOR UNI NSURED PATIENTS -- BIN:[id number], PCN: [id number], Group: [id number], ID# [id number], Process claim through [employer] (Inspect Manager), for questions: . THIS IS NOT INSURANCE.] Voltaren 1 % topical gel RxNorm: 035343 TOP BID 04/21/2014 5 Inactive Apply to affected areas 2-3 times daily as needed. Trilipix 135 mg capsule,delayed release RxNorm: 028501 1 Tablet(s) PO QD 1 Capsule(s) PO QD 04/21/2014 09/17/2014 Inactive may do 90 day f ill if desired Synthroid 137 mcg tablet RxNorm: 111147 1 Tablet(s) PO QD 03/30/2014 09/25/2014 Inactive [AttnRPh: Saving apply/adjudicate RxGRP: SG20 RxBIN:[id number] RxPCN: ID#:[id number]] Cipro 250 mg tablet RxNorm: 343265 1 Tablet(s) PO BID 03/30/201403/24 Inactive [SAVINGS FOR UNINSURED PATIENTS -- BIN:[id number], PCN: ASPROD1, Group: [id number], ID# [id number], Process claim through MedImpact, for questions: . THIS IS NOT INSURANCE.] Janumet XR 100 mg-1,000 mg tablet,extended release RxNorm: 1 622895 2 Tablet(s) PO QD 01/06/2014 01/05/2014 Inactive [SAVINGS FOR UNI NSURED PATIENTS -- BIN:[id number], PCN: ASPROD1, Group: [id number], ID# [id number], Process claim through MedImpact, for questions: . THIS IS NOT INSURANCE.] Janumet XR 100 mg-1,000 mg tablet,extended release RxNorm: 1 930237 1 Tablet(s) PO QD 01/06/2014 04/05/2014 Inactive [SAVINGS FOR UNI NSURED PATIENTS -- BIN:[id number], PCN: ASPROD1, Group: [id number], ID# [id number], Process claim through MedImpact, for questions: . THIS IS NOT INSURANCE.] propranolol 60 mg tablet RxNorm: 724286 1 Tablet(s) PO QD 12/28/2013 07/26/2014 Inactive [AttnRPh: Saving apply/adjudicate RxGRP: SG20 RxBIN:[id number] RxPCN: ID#:[id number]] Synthroid 150 mcg tablet RxNorm: 436126 1 Tablet(s) PO QD brand onl y 12/28/2013 04/20/2014 Inactive [AttnRPh: Saving apply/adjud icate RxGRP:SG20 RxBIN:[id number] RxPCN: ID#:[id number]] Vitamin D2 50,000 unit capsule RxNorm: 544616 1 Capsule (s) PO Take 1 capsule by mouth twice weekly 12/02/2013 05/17/2014 Inactive Lipitor 80 mg tablet RxNorm: 031521 1 Tablet(s) PO QD 11/24/201305/25 Inactive [AttnRPh: Saving apply/adjudicate RxGRP: SG20 RxBIN:[id number] RxPCN: ID#:[id number]] loratadine 10 mg tablet RxNorm: 268645 1 Tablet(s) PO BID 11/17/2013 07/12/2014 Inactive fluoxetine 20 mg capsule RxNorm: 456989 1 Capsule(s) PO QAM TAKE ONE CAPSULE BY MOUTH ONCE DAILY IN THE MORNING. 11/04/2013 01/10/2015 Inactive Generic For:PROZAC 20MG Generic For:PROZAC 20MG 06/23/2013 11:55:55 AM [AttnRPh: Saving apply/adjudicate RxGRP:SG20 RxBIN:[id number] RxPCN: ID#:[id number]] Vytorin 10 mg-80 mg tablet RxNorm: 8172360 Tablet(s) PO TAKE ONE TABLET BY MOUTH ONCE DAILY IN THE EVENING. 09/30/2013 11/23/2013 Inactive Trilipix 135 mg capsule,delayed release RxNorm: 484046 1 Capsul e(s) PO QD 07/15/2013 04/21/2014 Inactive may do 90 day fill i f desired Voltaren 1 % topical gel RxNorm: 376733 TOP BID 07/15/2013 4 Inactive Apply to affected areas 2-3 times daily as needed. Wellbutrin XL 300 mg 24 hr tablet, extended release RxNorm: 214192 1 Tablet(s) PO QAM 06/29/2013 04/03/2017 Inactive fluoxetine 20 mg capsule RxNorm: 043365 1 Capsule(s) PO QAM TAKE ONE CAPSULE BY MOUTH ONCE DAILY IN THE MORNING. 06/29/2013 11/04/2013 Inactive Generic For:PROZAC 20MG Generic For:PROZAC 20MG 06/23/2013 11:55:55 AM fluoxetine 20 mg capsule RxNorm: 480523 Capsule(s) PO T ARY ONE CAPSULE BY MOUTH ONCE DAILY IN THE MORNING. 06/23/2013 06/28/2013 Inactive Gener ic For:PROZAC 20MG Generic For:PROZAC 20MG 06/23/2013 11:55:55 AM Synthroid 150 mcg tablet RxNorm: 488747 1 Tablet(s) PO QD brand onl y 06/08/2013 12/04/2013 Inactive Vytorin 10 mg-80 mg tablet RxNorm: 5023294 1 Tablet(s) PO QD 201209/05/2013 Inactive TAKE 1 TABLET BY MOUTH DAILY propranolol 60 mg tablet RxNorm: 692114 1 Tablet(s) PO QD 06/08/2013 12/04/2013 Inactive Pepcid 20 mg tablet RxNorm: 646795 Tablet(s) PO TAKE 1 TABLET BY MOUTH TWICE DAILY. 06/04/2013 11/23/2013 Inactive fluoxetine 20 mg capsule RxNorm: 517878 1 Capsule(s) PO QAM 013 06/22/2013 Inactive Wellbutrin XL 300 mg 24 hr tablet, extended release RxNorm: 910174 1 Tablet(s) PO QAM 05/26/2013 06/28/2013 Inactive Wellbutrin XL 150 mg 24 hr tablet, extended release RxNorm: 753656 1 Tablet(s) PO QD 05/15/2013 05/25/2013 Inactive Wellbutrin XL 150 mg 24 hr tablet, extended release RxNorm: 803575 1 Tablet(s) PO QD 05/15/2013 05/14/2013 Inactive Kombiglyze XR 5 mg-500 mg tablet,extended release RxNorm: 10 11670 1 Tablet(s) PO QD 05/07/2013 05/15/2013 Inactive cefdinir 300 mg capsule RxNorm: 385498 2 Capsule(s) PO QD 04/23/2013 05/02/2013 Inactive AttnRPh: Saving apply/adjudicate RxGRP:S G20 RxBIN:[id number] RxPCN: ID#:[id number] Pepcid 20 mg tablet RxNorm: 962301 Tablet(s) PO TAKE 1 TABLET BY MOUTH TWICE DAILY. 04/17/2013 06/13/2016 Inactive Pepcid 20 mg tablet RxNorm: 641893 1 Tablet(s) PO BID 04/06/201305/24 Inactive Vytorin 10-80 10 mg-80 mg tablet RxNorm: 124854 1 Tablet(s) PO QD 0 02/19/2013 06/08/2013 Inactive TAKE 1 TABLET BY MOUTH DAILY loratadine 10 mg tablet RxNorm: 858744 1 Tablet(s) PO BID 01/23/2013 07/21/2013 Inactive Synthroid 150 mcg tablet RxNorm: 816507 1 Tablet(s) PO QD brand onl y 12/02/2012 06/08/2013 Inactive propranolol 60 mg tablet RxNorm: 609399 1 Tablet(s) PO QD 12/02/2012 06/08/2013 Inactive Trilipix 135 mg capsule,delayed release RxNorm: 029997 1 Capsul e(s) PO QD 12/02/2012 05/30/2013 Inactive may do 90 day fill i f desired Pepcid 20 mg tablet RxNorm: 050958 1 Tablet(s) PO BID 11/27/201203/24 Inactive Effexor XR 150 mg capsule,extended release RxNorm: 828943 1 Cap kimi(s) PO QD 11/24/2012 05/14/2013 Inactive Vytorin 10-80 10 mg-80 mg tablet RxNorm: 737550 1 Tablet(s) PO QD 0 11/24/2012 2013 Inactive TAKE 1 TABLET BY MOUTH DAILY Vytorin 10-80 10 mg-80 mg tablet RxNorm: 713197 1 Tablet(s) PO QD 0 11/21/2012 11/24/2012 Inactive TAKE 1 TABLET BY MOUTH DAILY Effexor XR 150 mg capsule,extended release RxNorm: 754623 1 Cap kimi(s) PO QD 11/21/2012 11/24/2012 Inactive loratadine 10 mg tablet RxNorm: 9924351 1 Tablet(s) PO BID 11/12/19 13 01/23/2013 Inactive Vytorin 10-80 10 mg-80 mg tablet RxNorm: 332549 Tablet( s) PO TAKE 1 TABLET BY MOUTH ONCE DAILY. 10/15/2012 11/21/2012 Inactive Vytorin 10-80 10 mg-80 mg tablet RxNorm: 701668 1 Tablet(s) PO QD 0 10/15/2012 11/20/2012 Inactive TAKE 1 TABLET BY MOUTH DAILY Effexor XR 150 mg capsule,extended release RxNorm: 619382 1 Cap kimi(s) PO QD 10/15/2012 11/20/2012 Inactive Effexor XR 150 mg capsule,extended release RxNorm: 747474 Capsule(s) PO TAKE 1 CAPSULE BY MOUTH ONCE DAILY 10/15/2012 11/21/2012 Inactive azithromycin 250 mg tablet RxNorm: 663177 2 Tablet(s) PO QD 013 09/10/2012 Inactive Culturelle 10 billion cell capsule RxNorm: 649262 1 Cap kimi(s) PO BID for diarrhea maintenance 09/03/2012 10/02/2012 Inactive Medrol (Isaiah) 4 mg tablets in a dose pack RxNorm: 560900 Tablet(s) PO as directed 09/03/2012 07/11/2011 Active as directed Culturelle 10 billion cell capsule RxNorm: 186373 1 Capsule(s) PO BID 07/23/2012 08/21/2012 Inactive Vitamin D2 50,000 unit capsule RxNorm: 216579 Capsule(s ) PO TAKE 1 CAPSULE EVERY DAY SATURDAY THRU Saturday07/09/2012 08/20/2013 Inactive Vitamin D2 50,000 unit capsule RxNorm: 1770683 Capsule(s ) PO TAKE 1 CAPSULE EVERY DAY SATURDAY THRU Saturday07/07/2012 07/08/2012 Inactive Vitamin D2 50,000 unit capsule RxNorm: 4902383 Capsule(s ) PO TAKE 1 CAPSULE EVERY DAY SATURDAY THRU Saturday07/07/2012 07/06/2012 Inactive Vitamin D2 50,000 unit capsule RxNorm: 6580911 Capsule(s ) PO TAKE 1 CAPSULE EVERY DAY SATURDAY THRU Saturday06/27/2012 07/06/2012 Inactive Synthroid 150 mcg tablet RxNorm: 564095 1 Tablet(s) PO QD brand onl y 06/09/2012 12/02/2012 Inactive metformin 1,000 mg tablet RxNorm: 166112 1 Tablet(s) PO BID rep laces 500mg dose 05/20/2012 11/10/2012 Inactive propranolol 60 mg tablet RxNorm: 073195 1 Tablet(s) PO QD 04/23/2012 12/02/2012 Inactive Effexor XR 150 mg capsule,extended release RxNorm: 721828 1 Cap kimi(s) PO QD 04/04/2012 09/30/2012 Inactive Zyrtec 10 mg tablet RxNorm: 0736065 1 Tablet(s) PO QD 04/04/201203/24 Inactive Trilipix 135 mg capsule,delayed release RxNorm: 435322 1 Capsul e(s) PO QD 03/19/2012 12/02/2012 Inactive may do 90 day fill i f desired Vytorin 10-80 10 mg-80 mg tablet RxNorm: 144666 1 Tablet(s) PO QD 0 01/31/2012 07/28/2012 Inactive TAKE 1 TABLET BY MOUTH DAILY Voltaren 1 % topical gel RxNorm: 651575 TOP BID 01/25/2012 4 Inactive Apply to affected areas 2-3 times daily as needed. Synthroid 150 mcg tablet RxNorm: 652618 1 Tablet(s) PO QD brand onl y 01/02/2012 06/09/2012 Inactive metformin ER 1,000 mg 24 hr Tab Ctrl Rel RxNorm: 029789 1 Table t(s) PO QD 01/02/2012 05/19/2012 Inactive metformin ER 500 mg 24 hr Tab RxNorm: 849174 Tablet(s) PO 12/21/2011 01/01/2012 Inactive TAKE 1 TABLET BY MOUTH ONCE DAILY. Voltaren 1 % Topical Gel RxNorm: 479070 TOP BID 11/28/2011 2 Inactive Apply to affected areas 2-3 times daily as needed. propranolol 60 mg tablet RxNorm: 844211 1 Tablet(s) PO QD 10/17/2011 04/23/2012 Inactive Effexor XR 150 mg capsule,extended release RxNorm: 466840 1 Cap kimi(s) PO QD 09/13/2011 04/04/2012 Inactive Medrol (Isaiah) 4 mg tablets in a dose pack RxNorm: 004491 Tablet(s) PO as directed 09/04/2011 07/11/2011 Active as directed doxycycline hyclate 100 mg Tab RxNorm: 9072741 1 Tablet(s) PO BID 0 09/04/2011 09/13/2011 Inactive doxycycline monohydrate 100 mg Tab RxNorm: 8410006 1 Tablet(s) P O BID 07/25/2011 08/03/2011 Inactive prednisone 10 mg Tab RxNorm: 613764 1 Tablet(s) PO TID 07/25/201112/2011 Inactive Synthroid 150 mcg Tab RxNorm: 933901 1 Tablet(s) PO QD brand only 0 07/12/2011 01/02/2012 Inactive Vytorin 10-80 10 mg-80 mg Tab RxNorm: 517134 1 Tablet(s) PO QD 05/2601/31/2012 Inactive TAKE 1 TABLET BY MOUTH DAILY Vitamin D2 50,000 unit capsule RxNorm: 8635783 1 Capsule(s) PO Q D M-F 05/15/2011 06/26/2012 Inactive TAKE 1 CAPSULE BY MO [facility] DAILY SATURDAY THROUGH FRIDAYS Synthroid 150 mcg Tab RxNorm: 960607 1 Tablet(s) PO QD brand only 1 07/09/2010 07/11/2011 Inactive doxycycline monohydrate 100 mg Tab RxNorm: 9068333 1 Tablet(s) P O BID 04/25/2011 05/04/2011 Inactive Trilipix 135 mg capsule,delayed release RxNorm: 149919 1 Capsul e(s) PO QD 04/23/2011 03/19/2012 Inactive cefdinir 300 mg Cap RxNorm: 651663 1 Capsule(s) PO BID 04/04/2011 Inactive propranolol 60 mg Tab RxNorm: 561593 1 Tablet(s) PO QD 03/26/2011 Inactive Ultram 50 mg Tab RxNorm: 085167 1-2 Tablet(s) PO QID 03/22/201103/21 Active prn pain metformin ER 500 mg 24 hr Tab RxNorm: 664047 1 Tablet(s) PO QD 06/201006/21/2011 Inactive Synthroid 150 mcg Tab RxNorm: 756441 1 Tablet(s) PO QD 02/22/201112/2010 Inactive Vytorin 10-80 10 mg-80 mg Tab RxNorm: 341103 1 Tablet(s) PO QD 01/2303/13/2011 Inactive TAKE 1 TABLET BY MOUTH DAILY Trilipix 135 mg Cap RxNorm: 944647 1 Capsule(s) PO QD 01/10/201103/26 Inactive Effexor XR 150 mg 24 hr Cap RxNorm: 698038 1 Capsule(s) PO QD 01/0908/06/2011 Inactive Vitamin D 50,000 unit Cap RxNorm: 6075345 Capsule(s) PO 12/20/2010 Inactive TAKE 1 CAPSULE BY MOUTH DAILY SATURDAY THR Fridays Septra DS 800 mg-160 mg Tab RxNorm: 821921 1 Tablet(s) PO BID 12/0712/16/2010 Inactive mupirocin 2 % Ointment RxNorm: 383396 1 Application TOP BID Apply to affected area twice daily 12/07/2010 12/13/2010 Inactive Trilipix 135 mg Cap RxNorm: 397893 1 Capsule(s) PO QD 10/16/201003/26 Inactive Synthroid 150 mcg Tab RxNorm: 798039 1 Tablet(s) PO QD 10/09/201006/2010 Inactive metformin ER 500 mg 24 hr Tab RxNorm: 696888 1 Tablet(s) PO QD 09/2202/22/2011 Inactive Nexium 40 mg Cap RxNorm: 955787 1 Capsule(s) PO QD 10/05/2010 019 Inactive Vytorin 10-80 10 mg-80 mg Tab RxNorm: 231276 1 Tablet(s) PO QD 09/201002/12/2011 Inactive propranolol 60 mg Tab RxNorm: 442224 1 Tablet(s) PO QD 09/18/201008/2010 Inactive Synthroid 125 mcg Tab RxNorm: 992544 1 Tablet(s) PO QD 08/07/2010 Inactive Synthroid 125 mcg Tab RxNorm: 584827 1 Tablet(s) PO QD 08/07/2010 Inactive Voltaren 1 % Topical Gel RxNorm: 729605 TOP BID Apply t o affected areas 2-3 times daily as needed. 08/01/2010 11/28/2011 Inactive Voltaren 1 % Topical Gel RxNorm: 205325 TOP BID Apply t o affected areas 2-3 times daily as needed. 07/04/2010 07/31/2010 Inactive Advair Diskus 250 mcg-50 mcg/dose for Inhalation RxNorm: 135 9859 1 Puff(s) INH Q12H 07/04/2010 07/11/2011 Inactive Effexor XR 150 mg 24 hr Cap RxNorm: 945144 1 Capsule(s) PO QD 06/0801/03/2011 Inactive Synthroid 100 mcg Tab RxNorm: 028310 1 Tablet(s) PO QD 06/06/2010 Inactive Vitamin D 50,000 unit Cap RxNorm: 2096622 1 Capsule(s) PO QD M-F 05/15/2011 Inactive Synthroid 150 mcg Tab RxNorm: 045362 1 Tablet(s) PO 05/25/20102010 Inactive Vytorin 10-80 10 mg-80 mg Tab RxNorm: 022318 1 Tablet(s) PO QD 04/2509/25/2010 Inactive Trilipix 135 mg Cap RxNorm: 480951 1 Capsule(s) PO QD 04/17/201009/23 Inactive propranolol 60 mg Tab RxNorm: 519397 1 Tablet(s) PO QD 01/09/2010 Inactive Advair Diskus 250 mcg-50 mcg/dose for Inhalation RxNorm: 135 9859 1 Puff(s) INH Q12H 12/26/2009 07/04/2010 Inactive Advair Diskus 250 mcg-50 mcg/Dose for Inhalation RxNorm: 135 9859 1 Puff(s) INH Q12H 11/26/2009 12/25/2009 Inactive Synthroid 200 mcg Tab RxNorm: 078818 1 Tablet(s) PO QD 11/24/2009 Inactive Effexor XR 150 mg 24 hr Cap RxNorm: 210309 1 Capsule(s) PO QD 10/2705/24/2010 Inactive Lisinopril 10 mg Tab RxNorm: 411005 1 Tablet(s) PO QD 10/17/200909/23 Inactive Propranolol 60 mg Tab RxNorm: 754913 1 Tablet(s) PO QD 10/17/2009 Inactive Septra DS 160 mg-800 mg Tab RxNorm: 515516 1 Tablet(s) PO BID 10/0410/08/2009 Inactive Mupirocin 2 % Ointment RxNorm: 848067 TOP Q6-8H 10/04/2009 10/10/2009 Inactive Voltaren 1 % Topical Gel RxNorm: 971300 TOP BID Apply t o affected areas 2-3 times daily as needed. 09/21/2009 03/19/2010 Inactive Trilipix 135 mg Cap RxNorm: 638487 1 Capsule(s) PO QD 09/20/200902/23 Inactive Nexium 40 mg Cap RxNorm: 567595 1 Capsule(s) PO QD 09/19/2009 010 Inactive Tylenol Arthritis 650 mg Tab RxNorm: 1620408 2 Tablet(s) PO BID 09/21 Active Vitamin D3 5,000 unit tablet RxNorm: 120184 1 Tablet(s) PO QD 019 Active Synthroid 150 mcg tablet RxNorm: 408343 1 Tablet(s) PO QD 01/12/2015 01/11/2015 Inactive Synthroid 150 mcg tablet RxNorm: 866870 1 Tablet(s) PO Saturday and Saturday01/16/2018 01/15/2018 Inactive Vitamin D 2,000 unit Cap RxNorm: 1 Capsule(s) PO QD 01/30/201002/2010 Inactive Flexeril 5 mg tablet RxNorm: 457569 06/25 to 1 Tablet(s) PO TID as needed for muscle spasm 06/10/2017 06/09/2017 Inactive Medrol (Isaiah) 4 mg Tabs in a Dose Pack RxNorm: 663683 Tablet(s) PO 0 09/04/2011 07/11/2011 Inactive as directed fenofibrate micronized 134 mg capsule RxNorm: 824451 1 Capsule( s) PO QD 06/03/2017 06/02/2017 Inactive Vitamin D2 50,000 unit capsule RxNorm: 072542 Capsule(s ) PO Take 1 capsule by mouth twice weekly 12/02/2013 12/01/2013 Inactive prednisone 20 mg tablet RxNorm: 656910 1 Tablet(s) PO BID 03/30/2014 03/29/2014 Inactive AttnRPh: Saving apply/adjudicate RxGRP:S G20 RxBIN:[id number] RxPCN:HT ID#:[id number]: Saving apply/adjudicate RxGRP:SG20 RxBIN:[id number] RxPCN:HT ID#:[id number] Soma 350 mg tablet RxNorm: 272435 1 Tablet(s) PO TID prn spasm 01/2310/08/2010 Inactive Lancets,Ultra Thin RxNorm: Miscellaneous Use to test blood sugar daily and as needed (Dx: E11.65) 02/28/2018 02/27/2018 Inactive pantoprazole 40 mg tablet,delayed release RxNorm: 778309 1 Tabl et(s) PO QD 08/21/2017 08/20/2017 Inactive Janumet XR 100 mg-1,000 mg tablet,extended release RxNorm: 1 713288 2 Tablet(s) PO QD 01/06/2014 01/05/2014 Inactive Contour Meter RxNorm: miscellaneous 02/27/2018 02/26/2018 Inactive Synthroid 200 mcg Tab RxNorm: 382973 1 Tablet(s) PO QD 11/24/200907/2009 Inactive Kombiglyze XR 5 mg-500 mg tablet,extended release RxNorm: 10 07460 1 Tablet(s) PO QD 05/07/2013 05/06/2013 Inactive Zithromax Z-Isaiah 250 mg tablet RxNorm: 179354 Tablet(s) PO as di rected 05/14/2013 05/13/2013 Inactive AttnRPh: Saving appl y/adjudicate RxGRP:SG20 RxBIN:[id number] RxPCN: ID#:[id number] Fish Oil 1,000 mg capsule RxNorm: 3 Capsule(s) PO QD 04/04/2017 Inactive Lasix Oral RxNorm: Oral 03/30/2014 03/29/2014 Inactive loratadine 10 mg tablet RxNorm: 942000 1 Tablet(s) PO QD 08/20/2017 0 08/19/2017 Inactive Vitamin D 5,000 unit Tab RxNorm: 1 Tablet(s) PO twice a week 1 08/07/2009 06/05/2010 Inactive permethrin 5 % Topical Cream RxNorm: 362499 TOP Use as directed 02/03/2013 Inactive Gabapentin 100 mg Tab RxNorm: 000841 1 Tablet(s) PO BID 04/12/2010 Inactive Voltaren 1 % topical gel RxNorm: 663386 TOP as needed 06/23/201805/26 Inactive Gabapentin 300 mg Cap RxNorm: 543078 1 Capsule(s) PO BID 07/12/2011 0 07/11/2011 Inactive Contour Test Strips RxNorm: Miscellaneous Test blood sug ar daily (Dx: E11.65) 02/28/2018 02/27/2018 Inactive Promethazine 25 mg Tab RxNorm: 987867 1 Tablet(s) PO Q6 -8H As needed for nausea and vomiting. 10/09/2010 10/08/2010 Inactive propranolol 20 mg tablet RxNorm: 609238 1 Tablet(s) PO BID 03/17/20 18 03/16/2018 Inactive Vitamin D 50,000 unit Cap RxNorm: 1456812 Capsule(s) PO 2 weekly 06/05/2010 Inactive Synthroid 175 mcg Tab RxNorm: 137823 1 Tablet(s) PO QD 07/12/2011 Inactive triamcinolone acetonide 0.1 % Ointment RxNorm: 3349935 T OP TID apply three times a day (sparingly) as needed for itching 04/04/2017 04/03/2017 Inactive Ultram 50 mg Tab RxNorm: 130614 1-2 Tablet(s) PO QID prn pain 03/2203/22/2011 Inactive Topamax 100 mg Tab RxNorm: 720873 1 Tablet(s) PO BID 10/04/200910/03 Inactive Vitamin D3 1000 units Capsule RxNorm: 3 Capsule(s) PO QD 0 06/05/2010 Inactive Singulair 10 mg tablet RxNorm: 953121 1 Tablet(s) PO QD 06/23/2018 Inactive Medication [...] Code Result Date S ervice Location SARS-CoV2 0392125 SARS-CoV2 PCR Detected 07/08/2021 [facility] GFR CALC 0618392 GFR Non Afr Amr >60 mL/min 01/26/2019 Un known GFR CALC 1466422 GFR Afr Amr >60 mL/min 01/26/2019 Unknow n COMPLETE BLOOD COUNT 7425810 WBC 7.0 10e9/L 01/27/20 19 Unknown COMPLETE BLOOD COUNT 1095720 RBC 4.52 10e12/L 2018 Unknown COMPLETE BLOOD COUNT 9370659 HEMOGLOBIN 14.0 g/dL 01/27/20 19 Unknown COMPLETE BLOOD COUNT 6055302 HEMATOCRIT 42.6 % 01/27/20 19 Unknown COMPLETE BLOOD COUNT 4742323 MCV 94.2 fL 9 Unknown COMPLETE BLOOD COUNT 0011523 MCH 31.0 pg 9 Unknown COMPLETE BLOOD COUNT 2016496 MCHC 32.9 g/dL 9 Unknown COMPLETE BLOOD COUNT 8517099 PLATELET COUNT 272 10e9/L 10/2018 Unknown COMPLETE BLOOD COUNT 1115167 Mean Plt Volume 10.4 fL 10/2018 Unknown COMPLETE BLOOD COUNT 5558885 Neut Auto 53.9 % 9 Unknown COMPLETE BLOOD COUNT 1395720 Lymph Auto 33.8 % 01/27/20 19 Unknown COMPLETE BLOOD COUNT 6097168 Hendry Auto 9.1 % 9 Unknown COMPLETE BLOOD COUNT 9586552 RDW 13.2 % 9 Unknown COMPLETE BLOOD COUNT 3484682 Eos Auto 2.3 % 9 Unknown COMPLETE BLOOD COUNT 9364311 Baso Auto 0.9 % 9 Unknown COMPLETE BLOOD COUNT 2346273 Neutrophil Abs 3.77 10e9/L Unknown COMPLETE BLOOD COUNT 2078952 Lymphocyte Abs 2.37 10e9/L Unknown COMPLETE BLOOD COUNT 4666812 Monocyte Abs 0.64 10e9/L 10/2018 Unknown COMPLETE BLOOD COUNT [id number] Eosinophil Abs 0.16 10e9/L Unknown COMPLETE BLOOD COUNT 7116759 RDW-SD 44.2 fL 9 Unknown COMPLETE BLOOD COUNT 7817445 Basophil Abs 0.06 10e9/L 10/2018 Unknown COMPREHENSIVE METABOLIC 74449 AST 15 U/L 2018 Unknown COMPREHENSIVE METABOLIC 79582 ALT 18 U/L 2018 Unknown COMPREHENSIVE METABOLIC 19430 BUN 10 mg/dL 2018 Unknown COMPREHENSIVE METABOLIC 64299 ALBUMIN 4.1 g/dL 2018 Unknown COMPREHENSIVE METABOLIC 45087 CHLORIDE 100 mmol/L 01/26 Unknown COMPREHENSIVE METABOLIC 28986 Bili Total 0.4 mg/dL 01/26 Unknown COMPREHENSIVE METABOLIC 13043 ALK PHOS 57 U/L 2018 Unknown COMPREHENSIVE METABOLIC 35770 SODIUM 136 mmol/L 01/26 Unknown COMPREHENSIVE METABOLIC 58286 CREATININE 0.71 mg/dL 10/2018 Unknown COMPREHENSIVE METABOLIC 87192 CALCIUM 9.3 mg/dL 2018 Unknown COMPREHENSIVE METABOLIC 23373 POTASSIUM 4.4 mmol/L 01/26 Unknown COMPREHENSIVE METABOLIC 32824 Total Protein 6.7 g/dL Unknown COMPREHENSIVE METABOLIC 82322 Glucose 88 mg/dL 2018 Unknown COMPREHENSIVE METABOLIC 34733 Bicarbonate 27 mmol/L 10/2018 Unknown COMPREHENSIVE METABOLIC 42371 AGAP 9 mmol/L 2018 Unknown Procedures Procedure Codes Date RML URINE CULTURE/ COLONY COUNT CPT-4: 68172 06/29/19 23 THER/PROPH/DIAG INJ SC/IM CPT-4: 69754 04/18/2022 KETOROLAC TROMETHAMINE INJ CPT-4: J1885 04/18/2022 FLU 64 + VACC AIIV4 NO PRSRV 0.5ML IM CPT-4: 69293 ADMIN INFLUENZA VIRUS VAC CPT-4: G0008 04/05/2022 PPPS, subseq visit CPT-4: G0439 02/06/2022 DEXAMETHASONE SODIUM PHOS CPT-4: J1100 11/09/2021 THER/PROPH/DIAG INJ SC/IM CPT-4: 27897 11/09/2021 TRIAMCINOLONE ACET INJ NOS CPT-4: J3301 11/09/2021 CEFTRIAXONE SODIUM INJECTION CPT-4: J0696 10/30/2021 THER/PROPH/DIAG INJ SC/IM CPT-4: 67035 10/30/2021 INFLUENZA ASSAY W/OPTIC CPT-4: 37392 10/30/2021 THER/PROPH/DIAG INJ SC/IM CPT-4: 83904 09/05/2021 TRIAMCINOLONE ACET INJ NOS CPT-4: J3301 09/05/2021 INFLUENZA ASSAY W/OPTIC CPT-4: 54047 07/04/2021 SARS-CoV2 CPT-4: 7293453 07/04/2021 FLU VACC PRSV FREE INC ANTIG 65 AND OLDER CPT-4: 38633 03/29/2021 FLU VACC PRSV FREE INC ANTIG 65 AND OLDER CPT-4: 32245 03/29/2021 ADMIN INFLUENZA VIRUS VAC CPT-4: G0008 03/29/2021 DRAINAGE OF SKIN ABSCESS CPT-4: 76444 02/08/2021 PPPS, subseq visit CPT-4: G0439 01/03/2021 OCCULT BLOOD FECES CPT-4: 26558 07/13/2020 RML URINE CULTURE/ COLONY COUNT CPT-4: 07730 05/17/20 URINALYSIS NONAUTO W/O SCOPE CPT-4: 96952 05/17/2020 CEFTRIAXONE SODIUM INJECTION CPT-4: J0696 03/07/2020 THER/PROPH/DIAG INJ SC/IM CPT-4: 64259 03/07/2020 THER/PROPH/DIAG INJ SC/IM CPT-4: 79636 03/07/2020 METHYLPREDNISOLONE INJECTION CPT-4: J2930 03/07/2020 PPPS, subseq visit CPT-4: G0439 12/21/2019 RML URINE CULTURE/ COLONY COUNT CPT-4: 09670 09/11/19 CEFTRIAXONE SODIUM INJECTION CPT-4: J0696 09/08/2019 THER/PROPH/DIAG INJ SC/IM CPT-4: 49305 09/08/2019 THER/PROPH/DIAG INJ SC/IM CPT-4: 05483 09/07/2019 CEFTRIAXONE SODIUM INJECTION CPT-4: J0696 09/07/2019 THER/PROPH/DIAG INJ SC/IM CPT-4: 75861 09/07/2019 URINALYSIS NONAUTO W/O SCOPE CPT-4: 23031 09/02/2019 RML URINE CULTURE/ COLONY COUNT CPT-4: 78963 09/02/19 FLU VACC PRSV FREE INC ANTIG 65 AND OLDER CPT-4: 88648 04/15/2019 URINALYSIS NONAUTO W/O SCOPE CPT-4: 08869 04/15/2019 RML URINE CULTURE/ COLONY COUNT CPT-4: 97461 04/15/20 ADMIN INFLUENZA VIRUS VAC CPT-4: G0008 04/15/2019 FLU VACC PRSV FREE INC ANTIG 65 AND OLDER CPT-4: 99187 04/15/2019 THER/PROPH/DIAG INJ SC/IM CPT-4: 45155 04/07/2019 TRIAMCINOLONE ACET INJ NOS CPT-4: J3301 04/07/2019 DEXAMETHASONE SODIUM PHOS CPT-4: J1100 04/07/2019 URINALYSIS NONAUTO W/O SCOPE CPT-4: 12580 03/18/2019 RML URINE CULTURE/ COLONY COUNT CPT-4: 44923 03/18/20 19 ROUTINE VENIPUNCTURE CPT-4: 43330 01/26/2019 RML COMPREHEN METABOLIC PANEL CPT-4: 62867 01/26/2019 RML COMPLETE CBC W/AUTO DIFF WBC CPT-4: 34506 019 RML URINE CULTURE/ COLONY COUNT CPT-4: 55507 01/27/20 19 URINALYSIS NONAUTO W/O SCOPE CPT-4: 50868 01/26/2019 THER/PROPH/DIAG INJ SC/IM CPT-4: 57555 01/08/2019 TRIAMCINOLONE ACET INJ NOS CPT-4: J3301 01/08/2019 THER/PROPH/DIAG INJ SC/IM CPT-4: 76045 01/06/2019 METHYLPREDNISOLONE INJECTION CPT-4: J2930 01/06/2019 AIRWAY INHALATION TREATMENT CPT-4: 16687 01/06/2019 RML URINE CULTURE/ COLONY COUNT CPT-4: 78873 01/07/20 19 PPPS, subseq visit CPT-4: G0439 12/11/2018 URINALYSIS NONAUTO W/O SCOPE CPT-4: 53218 12/11/2018 RML URINE CULTURE/ COLONY COUNT CPT-4: 45707 12/12/19 19 CULTURE OTHR SPECIMN AEROBIC CPT-4: 84413 12/11/2018 OCCULT BLOOD FECES CPT-4: 99127 12/11/2018 THER/PROPH/DIAG INJ SC/IM CPT-4: 43415 10/07/2018 TRIAMCINOLONE ACET INJ NOS CPT-4: J3301 10/07/2018 DEXAMETHASONE SODIUM PHOS CPT-4: J1100 10/07/2018 THER/PROPH/DIAG INJ SC/IM CPT-4: 79446 10/16/2017 TRIAMCINOLONE ACET INJ NOS CPT-4: J3301 10/16/2017 THER/PROPH/DIAG INJ SC/IM CPT-4: 03453 10/16/2017 KETOROLAC TROMETHAMINE INJ CPT-4: J1885 10/16/2017 INFLUENZA ASSAY W/OPTIC CPT-4: 14397 07/25/2017 FLU VACC PRSV FREE INC ANTIG 65 AND OLDER CPT-4: 04164 04/04/2017 PNEUMOCOCCAL VACC 23 DANAY IM CPT-4: 20584 04/04/2017 PPPS, subseq visit CPT-4: G0439 04/04/2017 ADMIN INFLUENZA VIRUS VAC CPT-4: G0008 04/04/2017 ADMIN PNEUMOCOCCAL VACCINE CPT-4: G0009 04/04/2017 URINALYSIS NONAUTO W/O SCOPE CPT-4: 99518 06/05/2016 FLU VACC PRSV FREE INC ANTIG 65 AND OLDER CPT-4: 32325 05/01/2016 ADMIN INFLUENZA VIRUS VAC CPT-4: G0008 05/01/2016 URINALYSIS NONAUTO W/O SCOPE CPT-4: 97492 11/08/2015 URINALYSIS NONAUTO W/O SCOPE CPT-4: 83158 03/28/2015 ADMIN INFLUENZA VIRUS VAC CPT-4: G0008 03/28/2015 FLU VACC PRSV FREE INC ANTIG 65 AND OLDER CPT-4: 63851 03/28/2015 PRESCRIP TRANSMIT VIA ERX SY CPT-4: G8553 03/28/2015 PNEUMOCOCCAL VACC 12 DANAY IM CPT-4: 03477 02/08/2015 ADMIN PNEUMOCOCCAL VACCINE CPT-4: G0009 02/08/2015 PRESCRIP TRANSMIT VIA ERX SY CPT-4: G8553 02/08/2015 RML URINE CULTURE/ COLONY COUNT CPT-4: 15951 01/12/20 15 URINALYSIS NONAUTO W/O SCOPE CPT-4: 01290 01/11/2015 PRESCRIP TRANSMIT VIA ERX SY CPT-4: G8553 01/11/2015 PRESCRIP TRANSMIT VIA ERX SY CPT-4: G8553 11/24/2014 URINALYSIS NONAUTO W/O SCOPE CPT-4: 55536 10/27/2014 RML URINE CULTURE/ COLONY COUNT CPT-4: 42695 10/28/19 15 PRESCRIP TRANSMIT VIA ERX SY CPT-4: G8553 10/27/2014 CEFTRIAXONE SODIUM INJECTION CPT-4: J0696 09/23/2014 THER/PROPH/DIAG INJ SC/IM CPT-4: 11105 09/23/2014 URINALYSIS NONAUTO W/O SCOPE CPT-4: 62473 09/23/2014 RML URINE CULTURE/ COLONY COUNT CPT-4: 79495 09/24/19 15 PRESCRIP TRANSMIT VIA ERX SY CPT-4: G8553 09/23/2014 URINALYSIS NONAUTO W/O SCOPE CPT-4: 49024 03/30/2014 RML URINE CULTURE/ COLONY COUNT CPT-4: 62028 03/30/20 14 PRESCRIP TRANSMIT VIA ERX SY CPT-4: G8553 03/30/2014 PRESCRIP TRANSMIT VIA ERX SY CPT-4: G8553 11/24/2013 PRESCRIP TRANSMIT VIA ERX SY CPT-4: G8553 06/29/2013 PRESCRIP TRANSMIT VIA ERX SY CPT-4: G8553 05/26/2013 PRESCRIP TRANSMIT VIA ERX SY CPT-4: G8553 04/23/2013 THER/PROPH/DIAG INJ SC/IM CPT-4: 16248 03/05/2013 KETOROLAC TROMETHAMINE INJ CPT-4: J1885 03/05/2013 PRESCRIP TRANSMIT VIA ERX SY CPT-4: G8553 11/27/2012 PRESCRIP TRANSMIT VIA ERX SY CPT-4: G8553 11/11/2012 PRESCRIP TRANSMIT VIA ERX SY CPT-4: G8553 09/03/2012 PRESCRIP TRANSMIT VIA ERX SY CPT-4: G8553 07/23/2012 PRESCRIP TRANSMIT VIA ERX SY CPT-4: G8553 05/20/2012 PRESCRIP TRANSMIT VIA ERX SY CPT-4: G8553 04/04/2012 DESTRUCT PREMALG LESION (Cryosurgery) CPT-4: 00463 PRESCRIP TRANSMIT VIA ERX SY CPT-4: G8553 01/02/2012 PRESCRIP TRANSMIT VIA ERX SY CPT-4: G8553 09/04/2011 URINALYSIS NONAUTO W/O SCOPE CPT-4: 38806 07/31/2011 PRESCRIP TRANSMIT VIA ERX SY CPT-4: G8553 07/12/2011 PRESCRIP TRANSMIT VIA ERX SY CPT-4: G8553 05/09/2011 THER/PROPH/DIAG INJ SC/IM CPT-4: 34174 05/02/2011 KETOROLAC TROMETHAMINE INJ CPT-4: J1885 05/02/2011 PRESCRIP TRANSMIT VIA ERX SY CPT-4: G8553 04/25/2011 CUR TOBACCO NON-USER CPT-4: G8457 04/04/2011 PRESCRIP TRANSMIT VIA ERX SY CPT-4: G8553 04/04/2011 DRAIN/INJECT JOINT/BURSA CPT-4: 66270 03/01/2011 METHYLPREDNISOLONE 40 MG INJ CPT-4: J1030 03/01/2011 TRIAMCINOLONE ACET INJ NOS CPT-4: J3301 03/01/2011 DRAIN/INJECT JOINT/BURSA CPT-4: 12667 01/04/2011 METHYLPREDNISOLONE 40 MG INJ CPT-4: J1030 01/04/2011 TRIAMCINOLONE ACET INJ NOS CPT-4: J3301 01/04/2011 PRESCRIP TRANSMIT VIA ERX SY CPT-4: G8553 12/07/2010 PRESCRIP TRANSMIT VIA ERX SY CPT-4: G8553 10/09/2010 PRESCRIP TRANSMIT VIA ERX SY CPT-4: G8553 06/06/2010 DRAIN/INJECT JOINT/BURSA CPT-4: 36695 04/12/2010 TRIAMCINOLONE ACET INJ NOS CPT-4: J3301 04/12/2010 METHYLPREDNISOLONE 80 MG INJ CPT-4: J1040 04/12/2010 PRESCRIP TRANSMIT VIA ERX SY CPT-4: G8553 03/20/2010 THER/PROPH/DIAG INJ SC/IM CPT-4: 14378 01/30/2010 KETOROLAC TROMETHAMINE INJ CPT-4: J1885 01/30/2010 PRESCRIP TRANSMIT VIA ERX SY CPT-4: G8553 01/30/2010 DRAIN/INJECT JOINT/BURSA CPT-4: 08211 10/26/2009 TRIAMCINOLONE ACET INJ NOS CPT-4: J3301 10/26/2009 METHYLPREDNISOLONE 80 MG INJ CPT-4: J1040 10/26/2009 DRAINAGE OF SKIN ABSCESS CPT-4: 32129 10/04/2009 Vital Signs Date Vital 08/07/2022 Blood Pressure 1: 126/74 Code: 8480-6 Heart Rate 1: 73 bpm Respiratory Rate: 20 bpm SpO2: 97% Temperature: 36.2 (C) / 97.1 (F) We ight: 222 lbs Code: 22457-8 06/29/2022 Blood Pressure 1: 132/73 Code: 8480-6 BMI: 36.7 Code: 77923-8 Heart Rate 1: 74 bpm Height: 5'6" Code: 8302-2 SpO2: 96% Temperature: 3 6.4 (C) / 97.6 (F) Weight: 226 lbs Code: 71036-6 05/28/2022 Blood Pressure 1: 129/78 Code: 8480-6 BMI: 37.7 Code: 38783-8 Heart Rate 1: 72 bpm Height: 5'6" Code: 8302-2 SpO2: 95% Temperature: 3 6.2 (C) / 97.1 (F) Weight: 232 lbs Code: 87943-6 05/10/2022 Blood Pressure 1: 133/75 Code: 8480-6 BMI: 38.3 Code: 77582-1 Heart Rate 1: 68 bpm Height: 5'6" Code: 8302-2 SpO2: 98% Temperature: 3 6.2 (C) / 97.1 (F) Weight: 236 lbs Code: 75678-3 04/18/2022 Blood Pressure 1: 118/70 Code: 8480-6 Heart Rate 1: 86 bpm Respiratory Rate: 20 bpm SpO2: 96% Temperature: 36.6 (C) / 97.8 (F) We ight: 238 lbs Code: 50299-8 02/15/2022 Blood Pressure 1: 120/82 Code: 8480-6 Heart Rate 1: 88 bpm Respiratory Rate: 20 bpm SpO2: 98% Temperature: 36.1 (C) / 97.0 (F) We ight: 237 lbs Code: 37136-3 02/06/2022 Blood Pressure 1: 124/80 Code: 8480-6 BMI: 39.4 Code: 53240-5 Heart Rate 1: 76 bpm Height: 5'6" Code: 8302-2 Respiratory Rate: 20 bpm SpO2: 98% Temperature: 36.6 (C) / 97.9 (F) Weight: 242 lbs Code: 97974-7 02/01/2022 Blood Pressure 1: 144/100 Code: 8480-6 Heart Rat e 1: 108 bpm Respiratory Rate: 22 bpm SpO2: 96% Temperature: 36.4 (C) / 97.5 (F) 11/29/2021 Blood Pressure 1: 128/80 Code: 8480-6 Heart Rate 1: 56 bpm Respiratory Rate: 20 bpm SpO2: 97% Temperature: 36.7 (C) / 98.1 (F) We ight: 242 lbs Code: 56638-3 11/22/2021 Blood Pressure 1: 118/80 Code: 8480-6 Heart Rate 1: 84 bpm Respiratory Rate: 20 bpm SpO2: 99% Temperature: 36.3 (C) / 97.4 (F) 11/21/2021 Blood Pressure 1: 132/80 Code: 8480-6 Heart Rate 1: 98 bpm Respiratory Rate: 20 bpm SpO2: 99% Weight: 238 lbs Code: 15915 -7 11/09/2021 Blood Pressure 1: 136/86 Code: 8480-6 Heart Rate 1: 68 bpm Respiratory Rate: 20 bpm SpO2: 95% Temperature: 36.4 (C) / 97.5 (F) We ight: 244 lbs Code: 12030-6 10/31/2021 Blood Pressure 1: 128/80 Code: 8480-6 Heart Rate 1: 80 bpm Respiratory Rate: 28 bpm SpO2: 93% Temperature: 38.0 (C) / 100. 4 (F) 10/30/2021 Blood Pressure 1: 136/82 Code: 8480-6 Heart Rate 1: 120 bpm Respiratory Rate: 24 bpm SpO2: 95% Temperature: 38.0 (C) / 100. 4 (F) 09/05/2021 Blood Pressure 1: 118/84 Code: 8480-6 BMI: 38.5 Code: 52471-3 Heart Rate 1: 72 bpm Height: 5'7" Code: 8302-2 Respiratory Rate: 20 bpm SpO2: 95% Temperature: 36.3 (C) / 97.4 (F) Weight: 246 lbs Code: 11974-7 08/24/2021 Blood Pressure 1: 132/84 Code: 8480-6 Heart Rate 1: 76 bpm Respiratory Rate: 19 bpm SpO2: 98% Temperature: 36.7 (C) / 98.1 (F) We ight: Code: 01472-3 03/01/2021 Blood Pressure 1: 90/52 Code: 8480-6 Heart Rate 1: 66 bpm Respiratory Rate: 22 bpm SpO2: 97% 02/08/2021 Blood Pressure 1: 132/75 Code: 8480-6 Heart Rate 1: 74 bpm Respiratory Rate: 18 bpm SpO2: 98% Temperature: 36.3 (C) / 97.3 (F) We ight: 247 lbs Code: 18312-1 01/19/2021 Blood Pressure 1: 126/76 Code: 8480-6 Heart Rate 1: 76 bpm Respiratory Rate: 20 bpm SpO2: 98% Temperature: 37.1 (C) / 98.8 (F) We ight: 244 lbs Code: 21974-7 01/03/2021 Blood Pressure 1: 124/64 Code: 8480-6 BMI: 38.5 Code: 14995-2 Heart Rate 1: 76 bpm Height: 5'7" Code: 8302-2 Respiratory Rate: 20 bpm SpO2: 96% Temperature: 36.4 (C) / 97.6 (F) Weight: 246 lbs Code: 82650-4 11/29/2020 Blood Pressure 1: 119/68 Code: 8480-6 Heart Rate 1: 73 bpm Respiratory Rate: 20 bpm SpO2: 95% Temperature: 36.1 (C) / 96.9 (F) We ight: 245 lbs Code: 98354-7 09/29/2020 Blood Pressure 1: 136/79 Code: 8480-6 Heart Rate 1: 67 bpm Respiratory Rate: 15 bpm SpO2: 98% Temperature: 36.2 (C) / 97.1 (F) We ight: 237 lbs Code: 34336-1 09/19/2020 Blood Pressure 1: 135/82 Code: 8480-6 Heart Rate 1: 76 bpm Respiratory Rate: 17 bpm SpO2: 96% Temperature: 36.6 (C) / 97.8 (F) We ight: 238 lbs Code: 78988-9 08/10/2020 Blood Pressure 1: 126/82 Code: 8480-6 Heart Rate 1: 60 bpm Respiratory Rate: 20 bpm SpO2: 96% Temperature: 36.3 (C) / 97.3 (F) We ight: 238 lbs Code: 55017-1 08/01/2020 Temperature: 36.6 (C) / 97.8 (F) 07/13/2020 Blood Pressure 1: 132/80 Code: 8480-6 Heart Rate 1: 76 bpm Respiratory Rate: 20 bpm SpO2: 97% Temperature: 36.2 (C) / 97.2 (F) We ight: 228 lbs Code: 32613-6 07/05/2020 Temperature: 35.9 (C) / 96.7 (F) 06/22/2020 Blood Pressure 1: 134/82 Code: 8480-6 Heart Rate 1: 60 bpm Respiratory Rate: 20 bpm SpO2: 96% Temperature: 36.4 (C) / 97.6 (F) We ight: 235 lbs Code: 78067-2 05/17/2020 Blood Pressure 1: 141/72 Code: 8480-6 Heart Rate 1: 78 bpm Respiratory Rate: 16 bpm SpO2: 98% Temperature: 36.3 (C) / 97.3 (F) We ight: 232 lbs Code: 85654-4 03/14/2020 Blood Pressure 1: 126/92 Code: 8480-6 Heart Rate 1: 72 bpm Respiratory Rate: 22 bpm SpO2: 96% Temperature: 36.3 (C) / 97.4 (F) We ight: 225 lbs Code: 14069-0 03/07/2020 Blood Pressure 1: 124/86 Code: 8480-6 Heart Rate 1: 72 bpm Respiratory Rate: 24 bpm SpO2: 93% Temperature: 36.2 (C) / 97.1 (F) We ight: 227 lbs Code: 07762-6 12/21/2019 Blood Pressure 1: 114/72 Code: 8480-6 BMI: 36.2 Code: 58618-3 Heart Rate 1: 60 bpm Height: 5'7" Code: 8302-2 Respiratory Rate: 20 bpm SpO2: 97% Temperature: 36.7 (C) / 98.1 (F) Weight: 231 lbs Code: 28394-5 09/02/2019 Blood Pressure 1: 138/85 Code: 8480-6 Heart Rate 1: 76 bpm Respiratory Rate: 20 bpm SpO2: 96% Temperature: 36.3 (C) / 97.3 (F) We ight: 226 lbs Code: 02809-8 07/09/2019 Blood Pressure 1: 123/63 Code: 8480-6 BMI: 34.9 Code: 02397-9 Heart Rate 1: 64 bpm Height: 5'7" Code: 8302-2 Respiratory Rate: 17 bpm SpO2: 97% Temperature: 37.0 (C) / 98.6 (F) Weight: 223 lbs Code: 29747-8 04/15/2019 Blood Pressure 1: 110/82 Code: 8480-6 Heart Rate 1: 66 bpm SpO2: 98% Temperature: 36.1 (C) / 96.9 (F) Weight: 223 lbs Code: 75774-1 04/07/2019 Blood Pressure 1: 132/80 Code: 8480-6 Heart Rate 1: 68 bpm Temperature: 36.9 (C) / 98.4 (F) Weight: 222 lbs Code: 07071-0 03/25/2019 Blood Pressure 1: 108/70 Code: 8480-6 Heart Rate 1: 64 bpm Respiratory Rate: 20 bpm SpO2: 96% Temperature: 36.2 (C) / 97.2 (F) We ight: 221 lbs Code: 91908-8 03/18/2019 Blood Pressure 1: 138/82 Code: 8480-6 Heart Rate 1: 74 bpm SpO2: 99% Temperature: 36.1 (C) / 96.9 (F) Weight: 223 lbs Code: 08261-5 01/26/2019 Blood Pressure 1: 138/90 Code: 8480-6 Heart Rate 1: 68 bpm SpO2: 96% Temperature: 35.9 (C) / 96.7 (F) Weight: 227 lbs Code: 05707-9 01/08/2019 Blood Pressure 1: 134/78 Code: 8480-6 BMI: 36.8 Code: 82144-7 Heart Rate 1: 76 bpm Height: 5'7" Code: 8302-2 SpO2: 93% Temperature: 3 6.4 (C) / 97.6 (F) Weight: 235 lbs Code: 67512-1 01/06/2019 Blood Pressure 1: 116/80 Code: 8480-6 Heart Rate 1: 72 bpm Respiratory Rate: 20 bpm SpO2: 98% Temperature: 36.5 (C) / 97.7 (F) We ight: 232 lbs Code: 83295-6 12/11/2018 Blood Pressure 1: 120/82 Code: 8480-6 BMI: 36.2 Code: 43599-4 Heart Rate 1: 67 bpm Height: 5'7" Code: 8302-2 Respiratory Rate: 18 bpm SpO2: 96% Temperature: 35.9 (C) / 96.7 (F) Weight: 231 lbs Code: 90043-2 10/30/2018 Blood Pressure 1: 126/82 Code: 8480-6 Heart Rate 1: 80 bpm Respiratory Rate: 20 bpm SpO2: 96% Temperature: 36.8 (C) / 98.3 (F) We ight: 228 lbs Code: 50022-6 10/07/2018 Blood Pressure 1: 130/90 Code: 8480-6 Heart Rate 1: 76 bpm Respiratory Rate: 24 bpm SpO2: 97% Temperature: 36.0 (C) / 96.8 (F) We ight: 229 lbs Code: 65936-2 06/23/2018 Blood Pressure 1: 132/80 Code: 8480-6 Heart Rate 1: 72 bpm Respiratory Rate: 20 bpm SpO2: 98% Temperature: 36.7 (C) / 98.0 (F) We ight: 233 lbs Code: 47509-9 01/16/2018 Blood Pressure 1: 116/82 Code: 8480-6 Heart Rate 1: 72 bpm Respiratory Rate: 20 bpm SpO2: 96% Temperature: 36.9 (C) / 98.5 (F) We ight: 230 lbs Code: 78805-5 10/16/2017 Blood Pressure 1: 116/74 Code: 8480-6 BMI: 35.1 Code: 34292-4 Heart Rate 1: 76 bpm Height: 5'7" Code: 8302-2 Respiratory Rate: 20 bpm SpO2: 98% Temperature: 36.7 (C) / 98.1 (F) Weight: 224 lbs Code: 29964-2 09/12/2017 Blood Pressure 1: 124/78 Code: 8480-6 BMI: 34.6 Code: 05808-2 Heart Rate 1: 84 bpm Height: 5'7" Code: 8302-2 Respiratory Rate: 20 bpm SpO2: 95% Temperature: 36.6 (C) / 97.8 (F) Weight: 221 lbs Code: 13968-6 08/20/2017 Blood Pressure 1: 126/78 Code: 8480-6 Heart Rate 1: 92 bpm Height: 5'7" Code: 8302-2 Respiratory Rate: 20 bpm SpO2: 96% Temperature: 36 .9 (C) / 98.5 (F) 08/13/2017 Blood Pressure 1: 124/80 Code: 8480-6 BMI: 34.8 Code: 71574-2 Heart Rate 1: 80 bpm Height: 5'7" Code: 8302-2 Respiratory Rate: 20 bpm SpO2: 96% Temperature: 36.7 (C) / 98.0 (F) Weight: 222 lbs Code: 77380-1 07/29/2017 Blood Pressure 1: 114/70 Code: 8480-6 BMI: 34.5 Code: 50612-1 Heart Rate 1: 76 bpm Height: 5'7" Code: 8302-2 Respiratory Rate: 20 bpm SpO2: 97% Temperature: 36.9 (C) / 98.4 (F) Weight: 220 lbs Code: 77958-5 07/25/2017 Blood Pressure 1: 142/76 Code: 8480-6 BMI: 34.9 Code: 40943-1 Heart Rate 1: 92 bpm Height: 5'7" Code: 8302-2 Respiratory Rate: 18 bpm SpO2: 96% Temperature: 36.7 (C) / 98.1 (F) Weight: 223 lbs Code: 62821-0 06/10/2017 Blood Pressure 1: 136/82 Code: 8480-6 BMI: 34.3 Code: 62744-1 Heart Rate 1: 68 bpm Height: 5'7" Code: 8302-2 Respiratory Rate: 20 bpm SpO2: 96% Temperature: 36.7 (C) / 98.0 (F) Weight: 219 lbs Code: 12434-4 05/28/2017 Blood Pressure 1: 136/70 Code: 8480-6 BMI: 34.1 Code: 99903-1 Heart Rate 1: 84 bpm Height: 5'7" Code: 8302-2 Respiratory Rate: 20 bpm SpO2: 95% Temperature: 35.9 (C) / 96.6 (F) Weight: 218 lbs Code: 93685-4 04/04/2017 Blood Pressure 1: 122/78 Code: 8480-6 BMI: 33.4 Code: 93701-1 Heart Rate 1: 68 bpm Height: 5'7" Code: 8302-2 Respiratory Rate: 20 bpm SpO2: 96% Temperature: 36.7 (C) / 98.0 (F) Weight: 213 lbs Code: 47186-6 11/28/2016 Blood Pressure 1: 114/82 Code: 8480-6 BMI: 33.7 Code: 84445-1 Heart Rate 1: 72 bpm Height: 5'7" Code: 8302-2 Respiratory Rate: 20 bpm SpO2: 98% Temperature: 36.4 (C) / 97.6 (F) Weight: 215 lbs Code: 36867-0 06/05/2016 Blood Pressure 1: 104/68 Code: 8480-6 BMI: 33.7 Code: 55648-9 Heart Rate 1: 68 bpm Height: 5'7" Code: 8302-2 Respiratory Rate: 20 bpm SpO2: 96% Temperature: 36.8 (C) / 98.2 (F) Weight: 215 lbs Code: 93833-8 11/08/2015 Blood Pressure 1: 122/70 Code: 8480-6 BMI: 33.8 Code: 33513-0 Heart Rate 1: 80 bpm Height: 5'7" Code: 8302-2 Respiratory Rate: 20 bpm Temperatu re: 36.8 (C) / 98.2 (F) Weight: 216 lbs Code: 32966-8 07/19/2015 Blood Pressure 1: 122/70 Code: 8480-6 BMI: 33.0 Code: 38041-2 Heart Rate 1: 80 bpm Height: 5'7" Code: 8302-2 Respiratory Rate: 18 bpm Temperatu re: 35.9 (C) / 96.6 (F) Weight: 211 lbs Code: 35112-6 03/28/2015 Blood Pressure 1: 124/70 Code: 8480-6 BMI: 31.8 Code: 74970-4 Heart Rate 1: 72 bpm Height: 5'7" Code: 8302-2 Respiratory Rate: 20 bpm Temperatu re: 36.8 (C) / 98.2 (F) Weight: 203 lbs Code: 96801-0 02/08/2015 Blood Pressure 1: 98/58 Code: 8480-6 BMI: 32.1 C ode: 74592-9 Heart Rate 1: 84 bpm Height: 5'7" Code: 8302-2 Respiratory Rate: 20 bpm Temperatu re: 36.7 (C) / 98.0 (F) Weight: 205 lbs Code: 44051-6 01/11/2015 Blood Pressure 1: 118/78 Code: 8480-6 BMI: 32.1 Code: 94289-8 Heart Rate 1: 84 bpm Height: 5'7" Code: 8302-2 Respiratory Rate: 20 bpm Temperatu re: 36.6 (C) / 97.9 (F) Weight: 205 lbs Code: 65037-4 11/24/2014 Blood Pressure 1: 124/80 Code: 8480-6 BMI: 32.0 Code: 36597-7 Heart Rate 1: 76 bpm Height: 5'7" Code: 8302-2 Respiratory Rate: 20 bpm Temperatu re: 36.2 (C) / 97.1 (F) Weight: 204 lbs Code: 92598-4 11/19/2014 Blood Pressure 1: 132/78 Code: 8480-6 BMI: 32.7 Code: 51085-9 Heart Rate 1: 68 bpm Height: 5'7" Code: 8302-2 Respiratory Rate: 20 bpm SpO2: 98% Temperature: 36.7 (C) / 98.0 (F) Weight: 209 lbs Code: 20558-4 10/27/2014 Blood Pressure 1: 118/76 Code: 8480-6 BMI: 32.6 Code: 19892-4 Heart Rate 1: 64 bpm Height: 5'7" Code: 8302-2 Respiratory Rate: 20 bpm Temperatu re: 36.7 (C) / 98.0 (F) Weight: 208 lbs Code: 71074-7 09/23/2014 Blood Pressure 1: 118/68 Code: 8480-6 BMI: 34.3 Code: 11659-2 Heart Rate 1: 78 bpm Height: 5'7" Code: 8302-2 Respiratory Rate: 22 bpm Temperatu re: 36.4 (C) / 97.6 (F) Weight: 219 lbs Code: 71387-1 07/28/2014 Blood Pressure 1: 126/80 Code: 8480-6 BMI: 33.5 Code: 96470-2 Heart Rate 1: 76 bpm Height: 5'7" Code: 8302-2 Respiratory Rate: 20 bpm Temperatu re: 36.4 (C) / 97.6 (F) Weight: 214 lbs Code: 13625-7 03/30/2014 Blood Pressure 1: 128/80 Code: 8480-6 BMI: 35.2 Code: 09168-4 Heart Rate 1: 88 bpm Height: 5'7" Code: 8302-2 Respiratory Rate: 20 bpm Temperatu re: 36.4 (C) / 97.6 (F) Weight: 225 lbs Code: 71177-4 11/24/2013 Blood Pressure 1: 124/82 Code: 8480-6 BMI: 35.6 Code: 99196-4 Heart Rate 1: 80 bpm Height: 5'7" Code: 8302-2 Respiratory Rate: 22 bpm Temperatu re: 36.2 (C) / 97.1 (F) Weight: 227 lbs Code: 88082-1 08/25/2013 Blood Pressure 1: 128/80 Code: 8480-6 BMI: 37.4 Code: 77323-3 Heart Rate 1: 76 bpm Height: 5'7" Code: 8302-2 Respiratory Rate: 20 bpm Temperatu re: 36.6 (C) / 97.9 (F) Weight: 239 lbs Code: 94440-3 06/29/2013 Blood Pressure 1: 106/78 Code: 8480-6 BMI: 38.1 Code: 84084-1 Heart Rate 1: 80 bpm Height: 5'7" Code: 8302-2 Respiratory Rate: 20 bpm Temperatu re: 36.6 (C) / 97.9 (F) Weight: 243 lbs Code: 40882-1 05/26/2013 Blood Pressure 1: 122/80 Code: 8480-6 BMI: 39.3 Code: 70966-4 Heart Rate 1: 80 bpm Height: 5'7" Code: 8302-2 Respiratory Rate: 20 bpm Temperatu re: 36.9 (C) / 98.4 (F) Weight: 251 lbs Code: 16397-5 05/06/2013 Blood Pressure 1: 128/78 Code: 8480-6 BMI: 39.2 Code: 99672-0 Heart Rate 1: 76 bpm Height: 5'7" Code: 8302-2 Respiratory Rate: 22 bpm Temperatu re: 35.8 (C) / 96.4 (F) Weight: 250 lbs Code: 02249-5 04/23/2013 Blood Pressure 1: 132/92 Code: 8480-6 BMI: 39.6 Code: 02777-3 Heart Rate 1: 88 bpm Height: 5'7" Code: 8302-2 Respiratory Rate: 28 bpm SpO2: 97% Temperature: 36.5 (C) / 97.7 (F) Weight: 253 lbs Code: 00261-6 03/31/2013 Blood Pressure 1: 122/80 Code: 8480-6 BMI: 39.0 Code: 52361-0 Heart Rate 1: 84 bpm Height: 5'7" Code: 8302-2 Respiratory Rate: 20 bpm Temperatu re: 36.6 (C) / 97.8 (F) Weight: 249 lbs Code: 73078-1 03/05/2013 Blood Pressure 1: 120/80 Code: 8480-6 BMI: 39.2 Code: 68449-8 Heart Rate 1: 60 bpm Height: 5'7" Code: 8302-2 Respiratory Rate: 22 bpm Temperatu re: 35.9 (C) / 96.6 (F) Weight: 250 lbs Code: 16642-6 02/04/2013 Blood Pressure 1: 124/80 Code: 8480-6 BMI: 38.4 Code: 79875-3 Heart Rate 1: 80 bpm Height: 5'7" Code: 8302-2 Respiratory Rate: 20 bpm Temperatu re: 36.4 (C) / 97.6 (F) Weight: 245 lbs Code: 00930-7 11/27/2012 Blood Pressure 1: 127/83 Code: 8480-6 Te mperature: 36.1 (C) / 96.9 (F) Weight: 243 lbs 2 oz Code: 34986-3 11/11/2012 Blood Pressure 1: 126/82 Code: 8480-6 BMI: 37.4 Code: 17336-5 Heart Rate 1: 80 bpm Height: 5'7" Code: 8302-2 Respiratory Rate: 20 bpm Temperatu re: 36.8 (C) / 98.2 (F) Weight: 239 lbs Code: 13919-4 10/20/2012 Blood Pressure 1: 114/80 Code: 8480-6 BMI: 37.1 Code: 41417-1 Heart Rate 1: 104 bpm Height: 5'7" Code: 8302-2 Respiratory Rate: 20 bpm Temperatu re: 36.9 (C) / 98.4 (F) Weight: 237 lbs Code: 69107-3 09/03/2012 Blood Pressure 1: 118/72 Code: 8480-6 BMI: 37.3 Code: 23175-6 Heart Rate 1: 70 bpm Height: 5'7" Code: 8302-2 Temperature: 35.6 (C) / 96.0 (F) Weight: 238 lbs Code: 64300-2 07/23/2012 Blood Pressure 1: 124/78 Code: 8480-6 BMI: 36.8 Code: 90676-7 Heart Rate 1: 68 bpm Height: 5'7" Code: 8302-2 Temperature: 35.6 (C) / 96.0 (F) Weight: 235 lbs Code: 66714-7 05/20/2012 Blood Pressure 1: 112/70 Code: 8480-6 BMI: 37.1 Code: 97653-1 Heart Rate 1: 76 bpm Height: 5'7" Code: 8302-2 Respiratory Rate: 20 bpm Temperatu re: 36.7 (C) / 98.1 (F) Weight: 237 lbs Code: 06877-4 04/04/2012 Blood Pressure 1: 110/64 Code: 8480-6 BMI: 37.1 Code: 61185-2 Heart Rate 1: 68 bpm Height: 5'7" Code: 8302-2 Temperature: 36.1 (C) / 97.0 (F) Weight: 237 lbs Code: 04412-2 02/20/2012 Blood Pressure 1: 136/78 Code: 8480-6 BMI: 37.1 Code: 12904-2 Heart Rate 1: 72 bpm Height: 5'7" Code: 8302-2 Respiratory Rate: 20 bpm Temperatu re: 36.7 (C) / 98.0 (F) Weight: 237 lbs Code: 75792-2 01/02/2012 Blood Pressure 1: 122/70 Code: 8480-6 BMI: 37.1 Code: 95821-5 Heart Rate 1: 76 bpm Height: 5'7" Code: 8302-2 Respiratory Rate: 20 bpm Temperatu re: 37.0 (C) / 98.6 (F) Weight: 237 lbs Code: 02129-9 09/04/2011 Blood Pressure 1: 120/84 Code: 8480-6 BMI: 35.4 Code: 65523-3 Heart Rate 1: 68 bpm Height: 5'7" Code: 8302-2 Temperature: 30.0 (C) / 86.0 (F) Weight: 226 lbs Code: 70833-9 08/14/2011 Blood Pressure 1: 120/82 Code: 8480-6 BMI: 36.5 Code: 85184-8 Heart Rate 1: 80 bpm Height: 5'7" Code: 8302-2 Temperature: 36.6 (C) / 97.8 (F) Weight: 233 lbs Code: 24724-0 07/31/2011 Blood Pressure 1: 138/86 Code: 8480-6 BMI: 37.0 Code: 47393-8 Heart Rate 1: 94 bpm Height: 5'7" Code: 8302-2 Temperature: 35.4 (C) / 95.7 (F) Weight: 236 lbs Code: 40999-6 07/25/2011 Blood Pressure 1: 128/80 Code: 8480-6 BMI: 37.0 Code: 23613-6 Heart Rate 1: 80 bpm Height: 5'7" Code: 8302-2 Temperature: 35.6 (C) / 96.0 (F) Weight: 236 lbs Code: 48177-8 07/12/2011 Blood Pressure 1: 132/80 Code: 8480-6 BMI: 37.0 Code: 11482-5 Heart Rate 1: 96 bpm Height: 5'7" Code: 8302-2 Respiratory Rate: 20 bpm Temperatu re: 36.3 (C) / 97.3 (F) Weight: 236 lbs Code: 52601-3 05/09/2011 Blood Pressure 1: 106/78 Code: 8480-6 BMI: 36.6 Code: 33385-4 Heart Rate 1: 72 bpm Height: 5'7" Code: 8302-2 Respiratory Rate: 20 bpm Temperatu re: 36.4 (C) / 97.6 (F) Weight: 234 lbs Code: 99613-0 05/02/2011 Blood Pressure 1: 96/72 Code: 8480-6 BMI: 36.6 C ode: 74706-6 Heart Rate 1: 108 bpm Height: 5'7" Code: 8302-2 Respiratory Rate: 24 bpm Temperatu re: 36.7 (C) / 98.0 (F) Weight: 234 lbs Code: 09783-5 04/25/2011 Blood Pressure 1: 120/72 Code: 8480-6 BMI: 36.5 Code: 28896-7 Heart Rate 1: 70 bpm Height: 5'7" Code: 8302-2 Temperature: 36.7 (C) / 98.0 (F) Weight: 233 lbs Code: 54247-8 04/04/2011 Blood Pressure 1: 126/92 Code: 8480-6 BMI: 36.5 Code: 66831-1 Heart Rate 1: 84 bpm Height: 5'7" Code: 8302-2 Respiratory Rate: 20 bpm Temperatu re: 36.2 (C) / 97.2 (F) Weight: 233 lbs Code: 96780-0 03/01/2011 Blood Pressure 1: 132/78 Code: 8480-6 Heart Rate 1: 88 bpm Temperature: 36.8 (C) / 98.2 (F) Weight: 231 lbs Code: 88534-6 01/04/2011 Blood Pressure 1: 122/78 Code: 8480-6 BMI: 37.0 Code: 53122-2 Heart Rate 1: 80 bpm Height: 5'7" Code: 8302-2 Temperature: 37.0 (C) / 98.6 (F) Weight: 236 lbs Code: 92791-3 12/07/2010 Blood Pressure 1: 132/92 Code: 8480-6 Heart Rate 1: 98 bpm Temperature: 36.2 (C) / 97.2 (F) Weight: 237 lbs Code: 90685-3 10/09/2010 Blood Pressure 1: 128/80 Code: 8480-6 Heart Rate 1: 72 bpm Temperature: 36.5 (C) / 97.7 (F) Weight: 244 lbs Code: 80694-4 08/07/2010 Blood Pressure 1: 114/80 Code: 8480-6 Heart Rate 1: 72 bpm Temperature: 36.2 (C) / 97.1 (F) Weight: 245 lbs Code: 04901-6 06/06/2010 Blood Pressure 1: 132/86 Code: 8480-6 Heart Rate 1: 80 bpm Temperature: 36.8 (C) / 98.2 (F) Weight: 242 lbs Code: 54727-2 04/12/2010 Blood Pressure 1: 126/82 Code: 8480-6 Heart Rate 1: 72 bpm Temperature: 36.8 (C) / 98.2 (F) Weight: 237 lbs Code: 68411-9 03/20/2010 Blood Pressure 1: 124/78 Code: 8480-6 Heart Rate 1: 76 bpm Temperature: 36.1 (C) / 97.0 (F) Weight: 239 lbs Code: 12876-2 01/30/2010 Blood Pressure 1: 118/80 Code: 8480-6 Heart Rate 1: 84 bpm Temperature: 37.1 (C) / 98.7 (F) Weight: 239 lbs Code: 97445-5 01/09/2010 Blood Pressure 1: 120/72 Code: 8480-6 BMI: 36.8 Code: 88237-3 Heart Rate 1: 80 bpm Height: 5'7" Code: 8302-2 Temperature: 36.1 (C) / 97.0 (F) Weight: 235 lbs Code: 57493-8 11/07/2009 Blood Pressure 1: 140/36 Cod e: 8480-6 10/26/2009 Blood Pressure 1: 126/82 Code: 8480-6 BMI: 36.9 Code: 96742-7 Heart Rate 1: 84 bpm Height: 5'7" Code: 8302-2 Temperature: 36.5 (C) / 97.7 (F) Weight: 234 lbs Code: 01601-2 10/17/2009 Blood Pressure 1: 140/88 Code: 8480-6 BMI: 36.3 Code: 79623-1 Heart Rate 1: 88 bpm Height: 5'7" Code: 8302-2 Temperature: 36.7 (C) / 98.0 (F) Weight: 232 lbs Code: 26444-7 10/04/2009 Blood Pressure 1: 140/90 Code: 8480-6 BMI: 36.3 Code: 62687-8 Heart Rate 1: 84 bpm Height: 5'7" Code: 8302-2 Temperature: 36.4 (C) / 97.6 (F) Weight: 232 lbs Code: 08030-4 09/21/2009 Blood Pressure 1: 136/82 Code: 8480-6 BMI: 36.3 Code: 29229-7 Heart Rate 1: 88 bpm Height: 5'7" Code: 8302-2 Temperature: 35.8 (C) / 96.4 (F) Weight: 232 lbs Code: 68875-2 Functional Status No Functional Status data Reason [...] 09/04/2011 chest congestion 09/04/2011 follow up 08/14/2011 [facility] 08/14/2011 venous thrombosis 08/14/2011 abdominal pain 08/14/2011 [...] Encounter Performer Location Location Address Codes Date ([id number]) OFFICE/OUTPATIENT VISIT EST Diagnosis: Hypothyroidism[ICD10: E03.9] Diagnosis: Essential (primary) hypertension[ICD10: I10] Diagnosis: Mixed hyperlipidemia[ICD10: E78.2] Diagnosis: Stress at home[ICD10: F43.9] Jayna VANESSA [address] [address] CPT-4: 14667 08/07/2022 ([id number]) OFFICE/OUTPATIENT VISIT EST Diagnosis: Acute cystitis[ICD10: N30.00] Marlene Bel BR[address] [address] CPT-4: 70518 06/29/2022 ([id number]) OFFICE/OUTPATIENT VISIT EST Diagnosis: Depression[ICD10: F32.A] Diagnosis: Hypothyroidism[ICD10: E03.9] Jayna VANESSA [address] [address] CPT-4: 58565 05/28/2022 ([id number]) OFFICE/OUTPATIENT VISIT EST Diagnosis: Depression[ICD10: F32.A] Diagnosis: Fatigue[ICD10: R53.83] Diagnosis: Hypothyroidism[ICD10: E03.9] Diagnosis: Hyperglycemia[ICD10: R73.9] Jayna GUTIERREZ S. 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] Jayna VANESSA DO [address] [address] CPT-4: 30428 02/15/2022 ([id number]) Annual depression screening, 15 minutes Diagnosis: Encounter for general adult medical examination without abnormal findings[ICD10: Z00.00] Diagnosis: Essential (primary) hypertension[ICD10: I10] Diagnosis: Mixed hyperlipidemia[ICD10: E78.2] Diagnosis: Hypothyroidism, unspecified[ICD10: E03.9] Diagnosis: Chronic obstructive pulmonary disease, unspecified[ICD10: J44.9] Jayna VANESSA DO [address] [address] CPT-4: G0444 02/06/2022 ([id number]) OFFICE/OUTPATIENT VISIT EST Diagnosis: 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] Diagnosis: Vision changes[ICD10: H53.9] Latasha Anand JAYNA VANESSA DO [address] [address] CPT-4: 02088 02/01/2022 ([id number]) OFFICE/OUTPATIENT VISIT EST Diagnosis: Diarrhea[ICD10: R19.7] Diagnosis: Cough[ICD10: R05.9] Jayna VANESSA DO [address] [address] CPT-4: 12043 11/30/19 ([id number]) OFFICE/OUTPATIENT VISIT EST Diagnosis: Post-viral cough syndrome[ICD10: R05.8] Diagnosis: Otalgia of both ears[ICD10: H92.03] Diagnosis: Diarrhea[ICD10: R19.7] Jayna GUTIERREZ Daniel Villalba DO [address] [address] CPT-4: 59684 11/22/2021 ([id number]) OFFICE/OUTPATIENT VISIT EST Diagnosis: Diarrhea of presumed infectious origin[ICD10: R19.7] Diagnosis: Altered taste[ICD10: R43.2] Diagnosis: Chronic bronchitis[ICD10: J42] Diagnosis: History of recent pneumonia[ICD10: Z87.01] Latasha Kika JAYNA Daniel VANESSA [address] [address] CPT- 4: 27270 11/21/2021 ([id number]) OFFICE/OUTPATIENT VISIT EST Diagnosis: Serous otitis media[ICD10: H65.90] Diagnosis: Postnasal drip[ICD10: R09.82] Diagnosis: Pneumonia[ICD10: J18.9] Jayna GUTIERREZ TracyPaige JANIS ER DO [address] [address] CPT-4: 71482 11/09/2021 ([id number]) NO CHARGE Diagnosis: Pneumonia[ICD10: J18.9] Diagnosis: Respiratory distress[ICD10: R06.03] Jayna KENNEY Daniel VANESSA DO [address] [address] CPT-4: 04544 10/31/2021 ([id number]) OFFICE/OUTPATIENT VISIT EST Diagnosis: Vertigo[ICD10: R42] Diagnosis: Nausea[ICD10: R11.0] Diagnosis: Pneumonia[ICD10: J18.9] Jayna GUTIERREZ TracyPaige JANIS ER DO [address] [address] CPT-4: 08840 10/30/2021 ([id number]) OFFICE/OUTPATIENT VISIT EST Diagnosis: Cervicalgia[ICD10: M54.2] Jayna ELAM [address] [address] CPT-4: 96534 09/05/2021 ([id number]) OFFICE/OUTPATIENT VISIT EST Diagnosis: 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] Diagnosis: Seronegative rheumatoid arthritis[ICD10: M06.00] Latasha VANESSA DO [address] [address] CPT- 4: 23469 08/24/2021 ([id number]) OFFICE/OUTPATIENT VISIT EST Diagnosis: Upper respiratory infection[ICD10: J06.9] Diagnosis: Contact with and (suspected) exposure to other viral communicable diseases[ICD10: Z20.828] Latasha VANESSA [address] [address] CPT-4: 40765 07/04/2021 ([id number]) NURSE/OUTPATIENT VISIT EST Diagnosis: FLU VACCINE[ICD10: Z23] Jayna JIANG [address] [address] CPT-4: 41019 03/29/2021 ([id number]) OFFICE/OUTPATIENT VISIT EST Diagnosis: Vasovagal episode[ICD10: R55] Diagnosis: Orthostatic hypotension[ICD10: I95.1] Latasha VANESSA [employer] [address] [place] [address] CPT-4: 04128 03/01/2021 ([id number]) OFFICE/OUTPATIENT VISIT EST Diagnosis: Sebaceous cyst of right axilla[ICD10: L72.3] Latasha VANESSA DO [address] [address] CPT- 4: 45802 02/08/2021 ([id number]) OFFICE/OUTPATIENT VISIT EST Diagnosis: Contact dermatitis[ICD10: L25.9] Jayna VANESSA [address] [address] CPT-4: 15667 01/19/2021 ([id number]) OFFICE/OUTPATIENT VISIT EST Diagnosis: Upper respiratory infection[ICD10: J06.9] Diagnosis: COPD exacerbation[ICD10: J44.1] Latasha VANESSA DO [address] [address] CPT-4: 44941 11/29/2020 ([id number]) OFFICE/OUTPATIENT VISIT EST Diagnosis: Sinusitis[ICD10: J32.9] Diagnosis: Acute pansinusitis, recurrence not specified[ICD10: J01.40] Latasha VANESSA [address] [address] CPT-4: 34623 09/29/2020 OFFICE/OUTPATIENT VISIT EST Diagnosis: Other seasonal allergic rhinitis[ICD10: J30.2] Diagnosis: Chronic bronchitis[ICD10: J42] Diagnosis: 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] Diagnosis: Middle ear effusion[ICD10: H65.90] Diagnosis: Fluid level behind tympanic membrane of both ears[ICD10: H65.93] Latasha VANESSA [address] [address] CPT-4: 67388 09/19/2020 ([id number]) OFFICE/OUTPATIENT VISIT EST Diagnosis: Right-sided tinnitus[ICD10: H93.11] Jayna Dionicioallie VILLARREALJEREMIAH VANESSA [address] [address] CPT-4: 48370 08/10/2020 ([id number]) OFFICE/OUTPATIENT VISIT EST Diagnosis: Dysfunction of right eustachian tube[ICD10: H69.81] Diagnosis: Right-sided tinnitus[ICD10: H93.11] Jayna Vanessa [address] [address] CPT-4: 37025 2020 ([id number]) OFFICE/OUTPATIENT VISIT EST Diagnosis: Pyelonephritis[ICD10: N12] Diagnosis: Anemia[ICD10: D64.9] Diagnosis: Blood in stool[ICD10: K92.1] Jayna Greenbergleydaapolinar VANESSA DO [address] [address] CPT-4: 46455 07/13/2020 ([id number]) OFFICE/OUTPATIENT VISIT EST Diagnosis: Acute gastroenteritis[ICD10: K52.9] Jayna Dionicioallie MORILLOAlecia VANESSA [address] [address] CPT-4: 08592 07/05/2020 ([id number]) OFFICE/OUTPATIENT VISIT EST Diagnosis: Essential hypertension[ICD10: I10] Diagnosis: Hypothyroidism, unspecified[ICD10: E03.9] Diagnosis: Metabolic syndrome[ICD10: E88.81] Diagnosis: Mixed hyperlipidemia[ICD10: E78.2] Diagnosis: Ikfjr-2-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] Jayna Dionicioallie JAYNA Daniel VANESSA [employer] [address] [place] [address] CPT- 4: 71056 06/22/2020 ([id number]) OFFICE/OUTPATIENT VISIT EST Diagnosis: Urinary tract infection[ICD10: N39.0] Jayna GERBER Daniel VANESSA [address] [address] CPT-4: 03486 05/17/2020 ([id number]) OFFICE/OUTPATIENT VISIT EST Diagnosis: Right pulmonary embolus[ICD10: I26.99] Jayna MARIA Daniel GREENBERGNDAPOLINAR [address] [address] CPT-4: 01302 03/14/2020 ([id number]) OFFICE/OUTPATIENT VISIT EST Diagnosis: COVID-19[ICD10: U07.1] Diagnosis: Pneumonia[ICD10: J18.9] Diagnosis: Dyspnea[ICD10: R06.00] Jayna Villalba DO [facility] [address] [place] [address] CPT-4: 53523 03/07/2020 ([id number]) OFFICE/OUTPATIENT VISIT EST Diagnosis: Upper respiratory infection[ICD10: J06.9] Genesis VANESSA DO [facility] [address] [place] [address] CPT-4: 52390 02/11/2020 ([id number]) OFFICE/OUTPATIENT VISIT EST Diagnosis: Dermatitis[ICD10: L30.9] Diagnosis: Urticaria[ICD10: L50.9] Jayna Vanessa [facility] [address] [place] [address] CPT-4: 59181 09/29/2019 ([id number]) OFFICE/OUTPATIENT VISIT EST Diagnosis: Bone spur of right foot[ICD10: M77.51] Diagnosis: Recurrent UTI[ICD10: N39.0] Diagnosis: MRSA (methicillin resistant staph aureus) culture positive[ICD10: Z22.322] Jayna Vanessa [facility] [address] [place] [address] CPT-4: 38693 09/14/2019 ([id number]) NURSE/OUTPATIENT VISIT EST Diagnosis: Urinary tract infection[ICD10: N39.0] Jayna VANESSA DO [facility] [address] [place] [address] CPT-4: 15749 09/11/2019 ([id number]) NURSE/OUTPATIENT VISIT EST Diagnosis: Urinary tract infection, site not specified[ICD10: N39.0] Jayna GREENBERGNDER DO [facility] [address] [place] [address] CPT-4: 40200 09/08/2019 ([id number]) NURSE/OUTPATIENT VISIT EST Diagnosis: Urinary tract infection, site not specified[ICD10: N39.0] Jayna VANESSA DO [facility] [address] [place] [address] CPT-4: 09052 09/07/2019 ([id number]) OFFICE/OUTPATIENT VISIT EST Diagnosis: Pelvic pain in female[ICD10: R10.2] Diagnosis: Urinary frequency[ICD10: R35.0] [facility] [address] [place] [address] CPT-4: 30348 09/02/2019 ([id number]) OFFICE/OUTPATIENT VISIT EST Diagnosis: Sinusitis[ICD10: J32.9] [facility] [address] [place] [address] CPT-4: 28619 07/09/2019 ([id number]) OFFICE/OUTPATIENT VISIT EST Diagnosis: UTI (urinary tract infection)[ICD10: N39.0] Diagnosis: FLU VACCINE[ICD10: Z23] [facility] [address] [place] [address] CPT-4: 95751 04/15/2019 ([id number]) OFFICE/OUTPATIENT VISIT EST Diagnosis: Pain in right leg[ICD10: M79.604] Genesis BRUCEER DO [address] [address] CPT-4: 45889 04/07/2019 ([id number]) OFFICE/OUTPATIENT VISIT EST Diagnosis: Diverticulitis of large intestine without perforation or abscess without bleeding[ICD10: K57.32] Diagnosis: Cystitis[ICD10: N30.90] Jayna [facility] [address] [place] [address] CPT-4: 82536 03/25/2019 ([id number]) OFFICE/OUTPATIENT VISIT EST Diagnosis: Abdominal pain[ICD10: R10.9] Diagnosis: Cystitis[ICD10: N30.90] Jayna [facility] [address] [place] [address] CPT-4: 04739 03/18/2019 ([id number]) OFFICE/OUTPATIENT VISIT EST Diagnosis: Diverticulitis of large intestine without perforation or abscess without bleeding[ICD10: K57.32] Diagnosis: Generalized abdominal pain[ICD10: R10.84] Diagnosis: Urinary tract infection, site not specified[ICD10: N39.0] Genesis VANESSA DO [address] [address] CPT-4: 50257 01/26/2019 ([id number]) OFFICE/OUTPATIENT VISIT EST Diagnosis: Mild intermittent asthma with (acute) exacerbation[ICD10: J45.21] Diagnosis: Allergic rhinitis due to pollen[ICD10: J30.1] Jayna VANESSA DO [address] [address] CPT- 4: 25295 01/08/2019 ([id number]) OFFICE/OUTPATIENT VISIT EST Diagnosis: Mild intermittent asthma with (acute) exacerbation[ICD10: J45.21] Diagnosis: URI, ACUTE[ICD10: J06.9] Diagnosis: Urinary tract infection, site not specified[ICD10: N39.0] Jayna VANESSA DO [address] [address] CPT-4: 74110 01/06/2019 ([id number]) OFFICE/OUTPATIENT VISIT EST Diagnosis: Benign paroxysmal vertigo, bilateral[ICD10: H81.13] Diagnosis: Migraine without aura, not intractable, without status migrainosus[ICD10: G43.009] Jayna VANESSA DO [facility] [address] [place] [address] CPT-4: 24231 10/30/2018 ([id number]) OFFICE/OUTPATIENT VISIT EST Diagnosis: Acute bronchitis, unspecified[ICD10: J20.9] Diagnosis: Cough[ICD10: R05] Diagnosis: Other seasonal allergic rhinitis[ICD10: J30.2] Stacey Feng JAYNA VANESSA DO [facility] [address] [place] [address] CPT- 4: 97962 10/07/2018 ([id number]) OFFICE/OUTPATIENT VISIT EST Diagnosis: Pain in unspecified joint[ICD10: M25.50] Diagnosis: Pain in right ankle and joints of right foot[ICD10: M25.571] Diagnosis: Other specified disorders of bone density and structure, unspecified site[ICD10: M85.80] Jayna GUTIERREZ TracyPaige DIONICIONDER DO [facility] [address] [place] [address] CPT-4: 15200 06/23/2018 ([id number]) OFFICE/OUTPATIENT VISIT EST Diagnosis: Hypothyroidism, unspecified[ICD10: E03.9] Diagnosis: Mixed hyperlipidemia[ICD10: E78.2] Jayna ALVARENGA SPaige DIONICIONDER DO [facility] [address] [place] [address] CPT-4: 61761 01/16/2018 ([id number]) OFFICE/OUTPATIENT VISIT EST Diagnosis: Cervicalgia[ICD10: M54.2] Genesis Jolenerylan GUTIERREZ TracyPaige DIONICIO NDER DO [address] [address] CPT-4: 78708 10/16/2017 ([id number]) OFFICE/OUTPATIENT VISIT EST Diagnosis: Headache[ICD10: R51] Diagnosis: Dizziness and giddiness[ICD10: R42] Jayna KENNEY SPaige DIONICIONDER DO [address] [address] CPT-4: 05498 09/12/2017 OFFICE/OUTPATIENT VISIT EST Diagnosis: Cough[ICD10: R05] Genesis Jolenerylan GUTIERREZ SPaige DIONICIONDER DO [facility] [address] [place] [address] CPT-4: 63589 08/20/2017 ([id number]) OFFICE/OUTPATIENT VISIT EST Diagnosis: COUGH[ICD10: R05] Jayna GUTIERREZ SPaige DIONICIONDER DO [employer] [address] [place] [address] CPT-4: 40369 08/13/19 18 ([id number]) OFFICE/OUTPATIENT VISIT EST Diagnosis: Acute bronchospasm[ICD10: J98.01] Jayna Thomas SPaige ORENDER [address] [address] CPT-4: 02988 07/29/2017 OFFICE/OUTPATIENT VISIT EST Diagnosis: Influenza due to identified novel influenza A virus with other respiratory manifestations[ICD10: J09.X2] Genesis VANESSA DO [address] [address] CPT-4: 77746 07/25/2017 ([id number]) OFFICE/OUTPATIENT VISIT EST Diagnosis: Pain in unspecified joint[ICD10: M25.50] Jayna VANESSA DO [address] [address] CPT- 4: 10352 06/10/2017 OFFICE/OUTPATIENT VISIT EST Diagnosis: Acute bronchitis, unspecified[ICD10: J20.9] Genesis VANESSA [address] [address] CPT- 4: 74813 05/28/2017 ([id number]) OFFICE/OUTPATIENT VISIT EST Diagnosis: Hypothyroidism, unspecified[ICD10: E03.9] Diagnosis: Mixed hyperlipidemia[ICD10: E78.2] Diagnosis: Ouiry-1-mulhtxtruxg 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] Diagnosis: Sebaceous cyst[ICD10: L72.3] Jayna VANESSA [address] [address] CPT-4: 70236 11/28/2016 ([id number]) OFFICE/OUTPATIENT VISIT EST Diagnosis: Right upper quadrant pain[ICD10: R10.11] Diagnosis: Epigastric pain[ICD10: R10.13] Jayna VANESSA [address] [address] CPT-4: 28506 06/05/2016 ([id number]) OFFICE/OUTPATIENT VISIT EST Diagnosis: FLU VACCINE[ICD10: Z23] Jayna JIANG [address] [address] CPT-4: 09499 05/01/2016 OFFICE/OUTPATIENT VISIT EST Diagnosis: Hypothyroidism, unspecified[ICD10: E03.9] Diagnosis: Type 1 diabetes mellitus without complications[ICD10: E10.9] Diagnosis: Mixed hyperlipidemia[ICD10: E78.2] Diagnosis: Essential (primary) hypertension[ICD10: I10] Diagnosis: Mixed incontinence[ICD10: N39.46] Jayna [address] [address] CPT-4: 38335 11/08/2015 ([id number]) OFFICE/OUTPATIENT VISIT EST Diagnosis: Hypothyroidism, unspecified[ICD10: E03.9] Diagnosis: Other fatigue[ICD10: R53.83] Jayna VANESSA [address] [address] CPT-4: 80962 07/19/2015 ([id number]) OFFICE/OUTPATIENT VISIT EST Diagnosis: Hypothyroidism, unspecified[ICD10: E03.9] Diagnosis: Mixed hyperlipidemia[ICD10: E78.2] Diagnosis: Metabolic syndrome[ICD10: E88.81] Diagnosis: Right lower quadrant abdominal tenderness[ICD10: R10.813] Diagnosis: FLU VACCINE[ICD10: Z23] Jayna JIANG [address] [address] CPT-4: 79507 03/28/2015 ([id number]) OFFICE/OUTPATIENT VISIT EST Diagnosis: MALAISE AND FATIGUE[ICD9: 780.79] Diagnosis: DEPRESSIVE DISORDER NEC[ICD9: 311] Diagnosis: HYPOTHYROIDISM[ICD9: 244.9] Diagnosis: PNEUMOCOCCAL VACCINE[ICD10: Z23] Jayna [address] [address] CPT-4: 47585 02/08/2015 ([id number]) OFFICE/OUTPATIENT VISIT EST Diagnosis: MALAISE AND FATIGUE[ICD9: 780.79] Diagnosis: DEPRESSIVE DISORDER NEC[ICD9: 311] Diagnosis: HYPOTHYROIDISM[ICD9: 244.9] Diagnosis: ARTHRALGIA-MULTIPLE SITES[ICD9: 719.49] Jayna Dionicioleydaapolinar COPELANDPILAR Daniel VANESSA DO [employer] [address] [place] [address] CPT-4: 00442 01/11/2015 ([id number]) OFFICE/OUTPATIENT VISIT EST 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] Diagnosis: - I - HYPOTHYROIDISM[ICD9: 244.9] Diagnosis: COUGH[ICD10: R05] Diagnosis: ALLERGIC RHINITIS[ICD9: 477.9] Diagnosis: Lumbar degenerative disc disease[ICD9: 722.52] Jaynaparam GUTIERREZ TracyPaige OTF DO [employer] [address] [place] [address] CPT- 4: 84261 11/24/2014 ([id number]) OFFICE/OUTPATIENT VISIT EST Diagnosis: Allergic reaction[ICD9: 995.3] Galina Leos JAYNA Molina Paige OTF DO [employer] [address] [place] [address] CPT-4: 21259 11/19/2014 ([id number]) OFFICE/OUTPATIENT VISIT EST Diagnosis: ALLERGIC RHINITIS[ICD9: 477.9] Diagnosis: WHEEZING[ICD9: 786.07] Diagnosis: URINARY TRACT INFECTION[ICD9: 599.0] Diagnosis: Right flank pain[ICD9: 789.09] Conchita DownsMellanayeli MORILLOLINE Tracy Paige OTF DO [employer] [address] [place] [address] CPT-4: 39668 10/27/2014 ([id number]) OFFICE/OUTPATIENT VISIT EST Diagnosis: URINARY TRACT INFECTION[ICD9: 599.0] Diagnosis: Flank pain[ICD9: 789.09] Conchita DownsMellanayeli MORILLOLINE Daniel DELVALLE EMMA DO [employer] [address] [place] [address] CPT-4: 82874 09/23/2014 ([id number]) OFFICE/OUTPATIENT VISIT EST Diagnosis: HYPERTENSION[ICD9: 401.9] Diagnosis: - I - HYPOTHYROIDISM[ICD9: 244.9] Diagnosis: HYPERLIPIDEMIA NEC/NOS[ICD9: 272.4] Diagnosis: DYSMETABOLIC SYNDROME X[ICD9: 277.7] Jayna QUEZADA SPaige ORENDER DO [address] [address] CPT-4: 00545 07/28/2014 OFFICE/OUTPATIENT VISIT EST Diagnosis: HYPERTENSION[ICD9: 401.9] Diagnosis: GROSS HEMATURIA[ICD9: 599.71] Jayna Sanchez ORENDER DO [address] [address] CPT-4: 07550 03/30/2014 ([id number]) OFFICE/OUTPATIENT VISIT EST 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 ORENDER DO [address] [address] CPT-4: 23715 06/29/2013 OFFICE/OUTPATIENT VISIT EST Diagnosis: DEPRESSIVE DISORDER NEC[ICD9: 311] Jayna Vanessa GERMAINE ALVARENGA S. ORENDER DO [address] [address] CPT-4: 09254 05/26/2013 ([id number]) OFFICE/OUTPATIENT VISIT EST Diagnosis: BRONCHITIS, ACUTE[ICD9: 466.0] Diagnosis: HYPOTHYROIDISM[ICD9: 244.9] Diagnosis: HYPERLIPIDEMIA NEC/NOS[ICD9: 272.4] Diagnosis: Shoulder pain[ICD9: 719.41] Jayna PUCKETT DO [address] [address] CPT-4: 95806 05/06/2013 ([id number]) OFFICE/OUTPATIENT VISIT EST Diagnosis: BRONCHITIS, ACUTE[ICD9: 466.0] Diagnosis: SINUSITIS, ACUTE[ICD9: 461.9] Jayna VANESSA [address] [address] CPT-4: 59062 04/23/2013 ([id number]) OFFICE/OUTPATIENT VISIT EST Diagnosis: DYSPNEA[ICD9: 786.09] Diagnosis: EDEMA[ICD9: 782.3] Diagnosis: BGQOD-6-ERLYLCFRHBD DEFICIENCY[ICD9: 273.4] Diagnosis: COUGH[ICD9: 786.2] Jayna VANESSA [address] [address] CPT-4: 64956 03/31/20 13 OFFICE/OUTPATIENT VISIT EST Diagnosis: Chest pain[ICD9: 786.50] Diagnosis: ANXIETY STATE NOS[ICD9: 300.00] Conchita VANESSA [address] [address] CPT-4: 01900 03/05/2013 ([id number]) OFFICE/OUTPATIENT VISIT EST Diagnosis: HYPERLIPIDEMIA NEC/NOS[ICD9: 272.4] Diagnosis: HYPOTHYROIDISM[ICD9: 244.9] Diagnosis: Plgbz-6-lullsoefaam deficiency[ICD9: 273.4] Diagnosis: ALLERGIC RHINITIS[ICD9: 477.9] Jayna VANESSA [address] [address] CPT-4: 60089 02/04/2013 ([id number]) OFFICE/OUTPATIENT VISIT EST Diagnosis: COUGH[ICD9: 786.2] Diagnosis: ALLERGIC RHINITIS[ICD9: 477.9] Jayna VANESSA [address] [address] CPT-4: 66196 11/27/2012 ([id number]) OFFICE/OUTPATIENT VISIT EST Diagnosis: COUGH[ICD9: 786.2] Diagnosis: DYSPNEA[ICD9: 786.09] Jayna VANESSA [address] [address] CPT-4: 37305 11/11/2012 ([id number]) OFFICE/OUTPATIENT VISIT EST Diagnosis: ABDOMINAL PAIN[ICD9: 789.00] Diagnosis: DIARRHEA[ICD9: 787.91] Diagnosis: COUGH[ICD9: 786.2] Jayna VANESSA DO [address] [address] CPT-4: 03480 10/21/19 13 OFFICE/OUTPATIENT VISIT EST Diagnosis: COUGH[ICD9: 786.2] Diagnosis: SINUSITIS, ACUTE[ICD9: 461.9] Diagnosis: PHARYNGITIS, ACUTE[ICD9: 462] Jayna VANESSA [address] [address] CPT-4: 32704 09/03/2012 OFFICE/OUTPATIENT VISIT EST Diagnosis: ABDOMINAL PAIN[ICD9: 789.00] Diagnosis: Diarrhea[ICD9: 787.91] Jayna VALENZUELA R DO [address] [address] CPT-4: 43517 07/23/2012 ([id number]) OFFICE/OUTPATIENT VISIT EST Diagnosis: DM 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 TYPE II, UNCONTROLLED[ICD9: 250.02] Diagnosis: HYPERLIPIDEMIA NEC/NOS[ICD9: 272.4] Diagnosis: GERD[ICD9: 530.81] Jayna VANESSA [address] [address] CPT-4: 27920 05/20/20 OFFICE/OUTPATIENT VISIT EST Diagnosis: DERMATITIS NOS[ICD9: 692.9] Galina PUCKETT DO [address] [address] CPT-4: 99923 04/04/2012 ([id number]) OFFICE/OUTPATIENT VISIT EST Diagnosis: HYPERLIPIDEMIA NEC/NOS[ICD9: 272.4] Diagnosis: HYPOTHYROIDISM[ICD9: 244.9] Diagnosis: DYSMETABOLIC SYNDROME X[ICD9: 277.7] Jayna VANESSA [address] [address] CPT-4: 48131 01/02/2012 OFFICE/OUTPATIENT VISIT EST Diagnosis: COUGH[ICD9: 786.2] Diagnosis: SINUSITIS, ACUTE[ICD9: 461.9] Lizzie Kelly JAYNA VANESSA [address] [address] CPT-4: 29546 09/04/2011 OFFICE/OUTPATIENT VISIT EST Diagnosis: Diverticulitis[ICD9: 562.11] Diagnosis: THROMBOPHLEBITIS[ICD9: 451.9] Jayna VANESSA [address] [address] CPT-4: 29147 08/14/2011 OFFICE/OUTPATIENT VISIT EST Diagnosis: COUGH[ICD9: 786.2] Jayna VANESSA [address] [address] CPT-4: 87972 07/25/19 OFFICE/OUTPATIENT VISIT EST Diagnosis: HYPOTHYROIDISM[ICD9: 244.9] Diagnosis: HYPERLIPIDEMIA NEC/NOS[ICD9: 272.4] Diagnosis: Total knee replacement status[ICD9: V43.65] Jayna VANESSA [address] [address] CPT- 4: 21448 07/12/2011 OFFICE/OUTPATIENT VISIT EST Diagnosis: BRONCHITIS, ACUTE[ICD9: 466.0] Diagnosis: COUGH[ICD9: 786.2] Jayna GREENBERGNDAPOLINAR [address] [address] CPT-4: 93635 05/09/20 11 OFFICE/OUTPATIENT VISIT EST Diagnosis: BRONCHITIS, ACUTE[ICD9: 466.0] Diagnosis: ASTHMA NOS[ICD9: 493.90] Diagnosis: Pleurisy[ICD9: 511.0] Jayna Sanchez [facility] [address] [place] [address] CPT-4: 53388 05/02/2011 OFFICE/OUTPATIENT VISIT EST Diagnosis: COUGH[ICD9: 786.2] Jayna Sanchez [facility] [address] [place] [address] CPT-4: 63398 04/25/20 11 OFFICE/OUTPATIENT VISIT EST Diagnosis: COUGH[ICD9: 786.2] Diagnosis: SINUSITIS, ACUTE[ICD9: 461.9] Jayna GREENBERGNDER DO [address] [address] CPT-4: 15887 04/04/2011 OFFICE/OUTPATIENT VISIT EST Diagnosis: HYPOTHYROIDISM[ICD9: 244.9] Diagnosis: Knee osteoarthritis[ICD9: 715.96] Jayna Thomas SPaige ORENDER DO [address] [address] CPT-4: 08163 03/01/2011 OFFICE/OUTPATIENT VISIT EST Jayna GREENBERG NDER DO [address] [address] CPT-4: 29603 01/04/2011 ([id number]) OFFICE/OUTPATIENT VISIT EST Jayna PISANO UELINE S. [facility] [address] [place] [address] CPT-4: 86999 12/07/2010 ([id number]) OFFICE/OUTPATIENT VISIT EST Jayna Otf PISANO UELINE S[facility] [address] [place] [address] CPT-4: 06573 10/09/2010 ([id number]) OFFICE/OUTPATIENT VISIT EST Jaynaparam PISANO UELINE S. [facility] [address] [place] [address] CPT-4: 56576 08/07/2010 ([id number]) OFFICE/OUTPATIENT VISIT, [facility] [address] [place] [address] CPT-4: 88148 06/06/2010 ([id number]) OFFICE/OUTPATIENT VISIT, [facility] [address] [place] [phone] CPT-4: 07954 03/20/2010 ([id number]) OFFICE/OUTPATIENT VISIT, [facility] [address] [place] [phone] CPT-4: 26641 01/30/2010 ([id number]) OFFICE/OUTPATIENT VISIT, [facility] [address] [place] [phone] CPT-4: 75456 01/09/2010 ([id number]) OFFICE/OUTPATIENT VISIT, [facility] [address] [place] [phone] CPT-4: 32725 10/26/2009 ([id number]) OFFICE/OUTPATIENT VISIT, [facility] [address] [place] [phone] CPT-4: 51855 10/18/19 10 ([id number]) OFFICE/OUTPATIENT VISIT, [facility] [address] [place] [phone] CPT-4: 01641 10/04/2009 ([id number]) OFFICE/OUTPATIENT VISIT, [facility] [address] [place] [phone] CPT-4: 22431 09/21/2009 Plan of Care Planned Activity Notes Codes Status Date Visit Diagnosis Plan: Discussion: Stable Labs disc ussed 08/07/2022 Visit Diagnosis Plan: Essential (primary) hypertension Discussion: Stable ICD-9 : 401.9 ICD-10 : I10 08/07/2022 Visit Diagnosis Plan: Discussion: Update lipids 08/07/2022 Visit Diagnosis Plan: Stress at home Discussion: With 's health ICD-9 : V61.9 ICD-10 : F43.9 08/07/2022 Visit Diagnosis Plan: Acute cystitis Discussion: [...] Marlene Staples W[facility]el[facility] [id number] [id number] [facility] 06/29/2022 Patient Education: ciprofloxacin HCl- [employer] Coupon [id number] Completed 06/29/2022 Visit Diagnosis Plan: Depression Discussion: Increase Wellbutrin XL to 300mg po qAM Fwup 2 mos ICD-9 : 311 ICD-10 : F32.A 05/28/2022 Visit Diagnosis Plan: Hypothyroidism Discussion: Labs discussed Decrease levothyroxine to 150mcg 6 days a week and repeat thyroid lab in 2mos ICD-9 : 244.9 ICD-10 : E03.9 05/28/2022 Appointment: Jayna [facility]essa [facility]Ptel[facility] [phone] [phone] FOLLOW UP 05/28/2022 Visit Diagnosis Plan: Hypothyroidism [...] : R73.9 05/10/2022 Appointment: Jayna Vanessa WPtel: [address] [place], [place] [phone] US FOLLOW UP 05/10/2022 Visit Diagnosis Plan: Migraine, intractable Discussion : Toradol 30mg IM x1 given in clinic. Start Rizatriptan-- discussed on how to use and may repeat x1 dose 2 hours later. Restart propranolol for migraine prevention. Notify clinic if migraine not improving. ICD-9 : 346.91 ICD-10 : G43.919 04/18/2022 Appointment: Marlene Staples WPtel: [phone] [phone] ACUTE ILLNESS 04/18/2022 Patient Education: propranolol- OptimizeRX Coupon [id number] Completed 04/18/2022 Appointment: Jayna Vanessa WPtel: [address] [place], [place] [phone] US INJECTION 04/05/2022 Appointment: Jayna Vanessa WPtel: [address] [place], [place] [phone] US CANCELED 03/21/2022 Visit Diagnosis Plan: Acute sinusitis Discussion: Pred nisone Notify if worsening persists ICD-9 : 461.9 ICD-10 : J01.90 02/15/2022 Visit Diagnosis Plan: Bilateral temporomandibular join t disorder Discussion: Ice and prednisone If worsening will check ESR ICD-9 : 524.60 ICD-10 : M26.603 02/15/2022 Visit Diagnosis Plan: Allergic rhinitis Discussion: Co ntinue flonase, singulair, xyzal ICD-9 : 477.9 ICD-10 : J30.9 02/15/2022 Appointment: Jayna Vanessa WPtel: [address] [place], [place] [phone] US ACUTE ILLNESS 02/15/2022 Patient Education: prednisone- OptimizeRX Coupon [id number] https://www.[employer]/samplemd/resources/getResource/61/74s27rx7-v931-7y09-ra Completed 02/15/2022 Visit Diagnosis Plan: Hypothyroidism, unspecified Disc ussion: Stable ICD-9 : 244.9 ICD-10 : E03.9 02/06/2022 Visit Diagnosis Plan: Encounter for [facility] adult medical examination without abnormal findings [...] J44.9 02/06/2022 Appointment: Jayna Vanessa WPtel: [phone] [phone] Annual Well Visit 02/06/2022 Care Plan: [...] 02/01/2022 Appointment: Latasha Anand WPtel: [phone] [facility] ACUTE ILLNESS 02/01/2022 Patient Education: Patient Medication [...] R19.7 11/29/2021 Appointment: Jayna Vanessa WPtel: [phone] [place] [phone] FOLLOW UP 11/29/2021 Visit Diagnosis Plan: Diarrhea Discussion: C Diff nega tive Treat with diflucan and Restora-RX Fwup 1 week ICD-9 : 787.91 ICD-10 : R19.7 11/22/2021 Visit Diagnosis Plan: Post-viral cough syndrome Discus joaquín: Change albuterol to Breztri 2p BID Add singulair 10mg po q HS ICD-9 : 786.2 ICD-10 : R05.8 11/22/2021 Appointment: Jayna Vanessa WPtel: [phone] ACUTE ILLNESS 11/22/2021 Patient Education: Singulair- OptimizeRX Coupon [id number] https://www.[employer]/samplemd/resources/getResource/61/9f02oyt0-1dwy-6595-6q Completed 11/22/2021 Visit Diagnosis Plan: Diarrhea of presumed infectious origin Discussion: Will check for c-diff due to recent antibiotics and foul smelling diarrhea ICD-9 : 009.3 ICD-10 : R19.7 11/21/2021 Visit Diagnosis Plan: History of recent pneumonia Disc ussion: Check cbc, cmp, ESR, and cxr now ICD-9 : V12.61 ICD-10 : Z87.01 11/21/2021 Appointment: Latasha Anand WPtel: [phone] ACUTE ILLNESS 11/21/2021 Patient Education: Patient Medication Summary Completed 11/21/2021 Visit Diagnosis Plan: Pneumonia Discussion: Finish all abx and continue albuterol Fwup next week ICD-9 : 486 ICD-10 : J18.9 11/09/2021 Visit Diagnosis Plan: Serous otitis media Discussion: Kenalog 40mg with Dexamethasone 2mg IM now ICD-9 : 381.4 ICD-10 : H65.90 11/09/2021 Appointment: Jayna Vanessa WPtel: [address] [place], [place] [phone] Hospital Follow Up 11/09/2021 Visit Diagnosis Plan: Pneumonia Discussion: Admit to h ospital ICD-9 : 486 ICD-10 : J18.9 10/31/2021 Appointment: Jayna Vanessa WPtel: [address] [place], [place] [phone] FOLLOW UP 10/31/2021 Visit Diagnosis Plan: Nausea [...] e prn 10/30/2021 Appointment: Jayna Vanessa WPtel: [address] [place], [place] [phone] ACUTE ILLNESS 10/30/2021 Visit Diagnosis Plan: Cervicalgia Discussion: Had x-ra ys done Kenalog 40mg IM now Baclofen prn Mobic for 1 week Topical muscle rube Moist heat and stretches shown Has PT sessions scheduled next week so will add in therapy for neck ICD-9 : 723.1 ICD-10 : M54.2 09/05/2021 Appointment: Jayna Vanessa WPtel: [address] [place], [place] [phone] ACUTE ILLNESS 09/05/2021 Visit Diagnosis Plan: Arthritis [...] 08/24/2021 Appointment: Latasha Anand WPtel: [phone] [phone] ACUTE ILLNESS 08/24/2021 Patient Education: Patient Medication Summary Completed 08/24/2021 Patient Education: prednisone- OptimizeRX Coupon [id number] Completed 08/24/2021 Visit Plan: Supportive care. Rest, [...] 07/04/2021 Appointment: Latasha Anand WPtel: [phone] [phone] US ACUTE ILLNESS 07/04/2021 Patient Education: Patient Medication Summary Completed 07/04/2021 Patient Education: Patient Medication Summary Completed 07/04/2021 Appointment: Latasha Anand WPtel: [phone] [phone] US NO SHOW 07/03/2021 Appointment: Latasha Anand WPtel: [phone] [phone] US patients issue resolved so moved to 's schedule for his hospital fwup (km) CANCELED 03/29/2021 Appointment: Jayna Vanessa WPtel: [phone] [phone] US INJECTION 03/29/2021 Visit Diagnosis Plan: Vasovagal episode Discussion: Mo nitored in office. Stable, feeling better- sent to [facility] for 1L NS IV, cbc, and cmp. ICD-9 : 780.2 ICD-10 : R55 03/01/2021 Patient Education: Patient Medication Summary Completed 03/01/2021 Visit Diagnosis Plan: Sebaceous cyst of right axilla D iscussion: Pustule/cyst drained- see note. F/U for concerns. ICD-9 : 706.2 ICD-10 : L72.3 02/08/2021 Appointment: Latasha Anand WPtel: [phone] [phone] ACUTE ILLNESS 02/08/2021 Patient Education: Patient Medication Summary Completed 02/08/2021 Visit Diagnosis Plan: Contact dermatitis Discussion: T opical TAC and prednisone Notify if persists or worsens ICD-9 : 692.9 ICD-10 : L25.9 01/19/2021 Appointment: Jayna Vanessa WPtel: [phone] [phone] ACUTE ILLNESS 01/19/2021 Patient Education: prednisone- OptimizeRX Coupon [id number] Completed 01/19/2021 Patient Education: triamcinolone acetonide- OptimizeRX Coupon 16 [id number] Completed 01/19/2021 Visit Diagnosis Plan: Hypothyroidism, unspecified Disc ussion: Increase levothyroxine to 150mcg po daily and recheck TSH and free T4 in 2mos ICD-9 : 244.9 ICD-10 : E03.9 01/03/2021 Visit Diagnosis Plan: Essential (primary) hypertension Discussion: Stable ICD-9 : 401.9 ICD-10 : I10 01/03/2021 Visit Diagnosis Plan: Encounter for [facility] adult medical examination without abnormal findings Discussion: Mediterranean diet Combinati on of cardio and weight bearing exercise Had Covid vaccines Lab discussed ICD-9 : V70.9 ICD-10 : Z00.00 01/03/2021 Visit Diagnosis Plan: Chronic obstructive pulmonary di sease, unspecified Discussion: Following with pulmonology ICD-9 : 496 ICD-10 : J44.9 01/03/2021 Appointment: Jayna Vanessa WPtel: [phone] [place] [phone] Annual Well Visit 01/03/2021 Patient Education: levothyroxine- OptimizeRX Coupon [id number] https://www.[employer]/samplemd/resources/getResource/61/8n463vs5-5yp6-3669-h8 Completed 01/03/2021 Visit Diagnosis Plan: COPD exacerbation Discussion: Sa ivon of keith given. Prednisone 40 mg x 5 days for exacerbation- increased cough, shortness of breath, and phlegm. Promethazine DM cough syrup sent d/t frequent hacking cough that interrupts sleep. F/U for no improvement or any concerns. ICD-9 : 491.21 ICD-10 : J44.1 11/29/2020 Appointment: Latasha Anand WPtel: [phone] [place] [phone] ACUTE ILLNESS 11/29/2020 Patient Education: Patient Medication Summary Completed 11/29/2020 Patient Education: prednisone- OptimizeRX Coupon [id number] Completed 11/29/2020 Patient Education: promethazine-DM- OptimizeRX Coupon [id number] Completed 11/29/2020 Visit Diagnosis Plan: Sinusitis Discussion: Will start doxycycline (pcn allergy). Sinus rinses. Tylenol/nsaids for headache/pain. Return to clinicif not improving/concerns. ICD-9 : 473.9 ICD-10 : J32.9 09/29/2020 Appointment: Latasha Anand WPtel: [phone] [phone] ACUTE ILLNESS 09/29/2020 Patient Education: Patient Medication Summary Completed 09/29/2020 Patient Education: doxycycline hyclate- OptimizeRX Coupon [id number] Completed 09/29/2020 Visit Diagnosis Plan: Other [...] J42 09/19/2020 Appointment: Latasha Anand WPtel: [phone] [phone] ACUTE ILLNESS 09/19/2020 Patient Education: Patient Medication Summary Completed 09/19/2020 Patient Education: ProAir HFA- OptimizeRX Coupon [id number] Completed 09/19/2020 Visit Diagnosis Plan: Right-sided tinnitus [...] H93.11 08/10/2020 Appointment: Jayna Vanessa WPtel: [phone] [phone] FOLLOW UP 08/10/2020 Patient Education: neomycin-polymyxin B-dexameth- Opti mizeRX Coupon [id number] https://www.[employer].com/samplemd/resources/getResource/61/ga978t13-u26u-5k26-bk Completed 08/10/2020 Visit Diagnosis Plan: Dysfunction of right eustachian tube Discussion: Alma.or video visit done Increase zyrtec to BID Increase flonase to BID Add prednisone To office at end of week to assess otoscope exam if persists ICD-9 : 381.81 ICD-10 : H69.81 08/01/2020 Appointment: Jayna Vanessa WPtel: [phone] [place] [phone] TELEMEDICINE 08/01/2020 Patient Education: prednisone- OptimizeRX Coupon [id number] https://www.[employer]/sampleQifang/resources/getResource/61/we4q74w0-9933-4v0s-62 Completed 08/01/2020 Visit Diagnosis Plan: Pyelonephritis Discussion: Hilary daniel all abx Push fluids Check lab and repeat UA in 5 days--CBC, CMP, ESR ICD-9 : 590.80 ICD-10 : N12 07/13/2020 Appointment: Jayna Vanessa WPtel: [phone] [place] [phone] Hospital Follow Up 07/13/2020 Visit Diagnosis Plan: Acute gastroenteritis Discussion : Telephone visit completed Clear liquid diet next 24-48hrs Flagyl to cover for colitis/diverticulitis Zofran prn Notify or to ER if worsening ICD-9 : 558.9 ICD-10 : K52.9 07/05/2020 Appointment: Jayna Vanessa WPtel: [phone] [phone] TELEMEDICINE 07/05/2020 Patient Education: ondansetron HCl- OptimizeRX Coupon [id number] https://www.[employer]/samplemd/resources/getResource/61/d1e61pr7-2f7j-604f-5t Completed 07/05/2020 Visit Diagnosis Plan: Metabolic syndrome Discussion: U pdate CMP, HBa1c ICD-9 : 277.7 ICD-10 : E88.81 06/22/2020 Visit Diagnosis Plan: Etlhp-7-dxoqqumdqdc deficiency D iscussion: Following with pulmonology ICD-9 [...] : I10 06/22/2020 Appointment: Jayna Vanessa WPtel: [address] [place], [place] [phone] FOLLOW UP 06/22/2020 Visit Diagnosis Plan: Urinary tract infection Discussi on: Macrobid Diflucan Push water Notify if worsens ICD-9 : 599.0 ICD-10 : N39.0 05/17/2020 Appointment: Jayna Vanessa WPtel: [address] [place], [place] [phone] ACUTE ILLNESS 05/17/2020 Patient Education: fluconazole- OptimizeRX Coupon [id number] https://www.[employer]d/resources/getResource/61/9o8pp1oy-l6h5-0y5t-4b Completed 05/17/2020 Visit Diagnosis Plan: Right pulmonary embolus Discussi on: Continue eliquis at 5mg po BID Has appointments pending with pulmonology and hematology Fwup after visits with both of these specialists ICD-9 : 415.19 ICD-10 : I26.99 03/14/2020 Appointment: Jayna Vanessa WPtel: [address] [place], [place] [phone] [facility] 03/14/20 on cell -- home phone had busy signal Hospital Follow Up 03/14/2020 Appointment: Jayna Vanessa WPtel: [address] [place], [place] [phone] I schedule patient by mistake ddo Scheduled [...] R06.00 03/07/2020 Appointment: Jayna Vanessa WPtel: [phone] [phone] ACUTE ILLNESS 03/07/2020 Care Plan: CT THORAX W/DYE LOINC : 72299 -6 Pending 03/07/2020 Appointment: Jayna Vanessa WPtel: [phone] [phone] NO SHOW - FORGIVEN 03/02/2020 Visit Diagnosis Plan: Upper respiratory infection Disc ussion: patient's covid test was neg from several weeks ago. proair refilled to take as needed. medrol pack prescribed to cover for allergies since her symptoms began after being in [facility]. however, instructed patient that she needs to be checked again for coronavirus due to severity of her symptoms. patient lives near [place] so informed her to go to [facility] in for testing. call ofice with new or worsening symptoms, otherwise push fluids. ICD-9 : 465.9 ICD-10 : J06.9 02/11/2020 Appointment: Genesis Fernández [address] [place] [address] TELEMEDICINE 02/11/2020 Patient Education: ProAir HFA- OptimizeRX Coupon [id number] Completed 02/11/2020 Patient Education: Medrol (Isaiah)- OptimizeRX Coupon [id number] Completed 02/11/2020 Visit Diagnosis Plan: Hypothyroidism, unspecified [...] 12/21/2019 Visit Diagnosis Plan: Encounter for [facility] adult medical examination without abnormal findings Discussion: Mediterranean diet Combinati on of cardio and weight bearing exercise Lab discussed Last colonoscopy 3 years ago ICD-9 : V70.9 ICD-10 : Z00.00 12/21/2019 Appointment: Jayna Vanessatel: [phone] [phone] Annual Well Visit 12/21/2019 Care Plan: Referral Order SNOMED-CT : [id number] Pending 12/21/2019 Visit Diagnosis Plan: Dermatitis Discussion: Doxy.me v ideo visit done Cover with Prednisone taper Use Zyrtec 10mg po q AM BID ICD-9 : 692.9 ICD-10 : L30.9 09/29/2019 Appointment: Jayna Vanessa WPtel: [phone] [phone] TELEMEDICINE 09/29/2019 Patient Education: prednisone- OptimizeRX Coupon [id number] https://www.[employer].com/samplemd/resources/getResource/61/84c68z80-3s52-1u48-4x Completed 09/29/2019 Visit Diagnosis Plan: Bone spur [...] : N39.0 09/14/2019 Appointment: Jayna Vanessa WPtel: [phone] [phone] TELEMEDICINE 09/14/2019 Appointment: Jayna Vanessa WPtel: [phone] [phone] US LAB 09/11/2019 Appointment: Jayna Vanessa WPtel: [address] [place], [place] [phone] US 09/09/2019 1210--per Ally patient was to only have 1 injection, reculture urine on 09/11/19 (km) CANCELED 09/09/2019 Appointment: Jayna Vanessa WPtel: [phone] [phone] US INJECTION 09/08/2019 Appointment: Jayna Vanessa WPtel: [phone] [phone] US INJECTION 09/07/2019 Visit Diagnosis Plan: [...] : R35.0 09/02/2019 Appointment: Genesis Fernández [address] [place] [address] ACUTE ILLNESS 09/02/2019 Visit Diagnosis Plan: Sinusitis Discussion: instructed to start flonase daily and zyrtec daily. if no improvement next week, call clinic and may need further directions. instructed to use saline eye drops as needed to eyes to assist with dryness. ICD-9 : 473.9 ICD-10 : J32.9 07/09/2019 Appointment: Genesis Fernández [address] [place] [address] ACUTE ILLNESS 07/09/2019 Visit Diagnosis Plan: UTI (urinary tract infection) Di scussion: urine culture sent off. will start on macrobid due to symptoms. instructed to push fluids and chemo tomorrow with worsening symptoms. ICD-9 : 599.0 ICD-10 : N39.0 04/15/2019 Appointment: Jay[facility]Ptel[facility] [phone] [phone] [facility] INJECTION 04/15/2019 Appointment: Genesis Fernández [address] [place], [place] [phone] ACUTE ILLNESS 04/15/2019 Visit Diagnosis Plan: Pain in right leg Discussion: ke nalog/dexa given in office. continue with flexeril prn. PT was ordered for patient due to chronic issues. call office with worsening symptoms and may need imaging. ICD-9 : 729.5 ICD-10 : M79.604 04/07/2019 Appointment: [facility]dez [facility] AC[facility] ILL[facility] 04/07/2019 Visit Diagnosis Plan: Diverticulitis of large intestine without perforation or abscess without bleeding Discussion: Patient will call when she g ets home and verify which antibiotics she has left--needs at least another week on flagyl and thinks she only took 1 week on that ICD-9 : 562.11 ICD-10 : K57.32 03/25/2019 Appointment: Jayna Vanessa WPtel: [phone] [phone] FOLLOW UP 03/25/2019 Visit Diagnosis Plan: Cystitis Discussion: Bactrim and culture urine ICD-9 : 595.9 ICD-10 : N30.90 03/18/2019 Visit Diagnosis Plan: Abdominal pain Discussion: Cover with flagyl for colitis [facility] diet To ER this weekend if worsening Fwup 1 week ICD-9 : 789.00 ICD-10 : R10.9 03/18/2019 Appointment: Jayna Vanessa WPtel: [phone] [phone] ACUTE ILLNESS 03/18/2019 Visit Diagnosis Plan: Urinary [...] : R10.84 01/26/2019 Appointment: Genesis Fernández [address] [place] [address] ACUTE ILLNESS 01/26/2019 Appointment: Jayna Vanessa WPtel: [facility] [place] [phone] CANCELED 01/12/2019 Visit Diagnosis Plan: Mild intermittent asthma with (a cute) exacerbation Discussion: Kenalog 40mg IM now Prednisone stating tomorrow Start Doxycycline tonight Continue SVNs with duoneb q4hrs To ER this weekend if worsening Call Saturday on how doing ICD-9 : 466.0 ICD-10 : J45.21 01/08/2019 Appointment: Jayna Vanessa WPtel: [facility] [place] [phone] FOLLOW UP 01/08/2019 Patient Education: prednisone- OptimizeRX Coupon [phone] https://www.[employer].byyd/samplemd/resources/getResource/61/73932716-c0mt-8598-89 Completed 01/08/2019 Visit Diagnosis Plan: Mild intermittent asthma with (a cute) exacerbation Discussion: Solumedrol 125mg IM SVN with duoneb given Continue albuterol q4hrs CXR now Recheck tomorrow ICD-9 : 466.0 ICD-10 : J45.21 01/06/2019 Appointment: Jayna Vanessa WPtel: [facility] [place] [phone] ACUTE ILLNESS 01/06/2019 Visit Diagnosis Plan: Encounter for screening for roel gnant neoplasm of colon Discussion: positive for ob. will order ct abd/pelvis due to other findings and discussed with patient that may need to proceed with updated colonoscopy. patient verbalized understanding. ICD-9 : V76.51 ICD-10 : Z12.11 12/11/2018 Visit Diagnosis Plan: Encounter for [facility] adult medical examination with abnormal findings [...] ICD-10 : N76.0 12/11/2018 Appointment: Genesis Fernández [address] [place], [place] [id number] Annual Well Visit 12/11/2018 Care Plan: RML ASSAY THYROID STIM HORMONE Pending 12/04/2018 Care Plan: RML ASSAY OF FREE THYROXINE Pe nding 12/04/2018 Care Plan: RML A1C HPLC LOINC : 20618-2 Pending 12/04/2018 Care Plan: RML LIPID PANEL LOINC : 13316 -1 Pending 12/04/2018 Care Plan: RML COMPREHEN METABOLIC PANEL LOINC : 83681-4 Pending 12/04/2018 Care Plan: QUEST CBC (INCLUDES DIFF/PLT) LOINC : 65583-3 Pending 12/04/2018 Visit Diagnosis Plan: Benign paroxysmal vertigo, bilat eral Discussion: Meclizine Vestibular Exercises To ER if worsens or develops neurological symptoms or will need CT scan if persists/worsens ICD-9 : 386.11 ICD-10 : H81.13 10/30/2018 Appointment: Jayna Vanessa WPtel: [phone] [phone] ACUTE ILLNESS 10/30/2018 Patient Education: VESTIBULAR EXCERCISES Completed 10/30/2018 Patient Education: meclizine- OptimizeRX Coupon [id number] Completed 10/30/2018 Appointment: Jayna Vanessa WPtel: [phone] [phone] US canceled due to mark going into hospital CANCE LED 10/28/2018 Visit [...] ICD-10 : R05 10/07/2018 Appointment: Stacey Feng [address] [place], [place] [id number] ACUTE ILLNESS 10/07/2018 Patient Education: doxycycline hyclate- OptimizeRX [facility] [id number] https://www.[employer]fing[employer].com/samplemd/resources/getResource/61/z683rzu7-i222-968p-18 Completed 10/07/2018 Care Plan: RML ASSAY OF [...] : M85.80 06/23/2018 Appointment: Jayna Vanessa WPtel: [phone] [phone] US FOLLOW UP 06/23/2018 Appointment: Jayna Vanessa WPtel: [phone] ER Follow UP 01/27/2018 Visit Diagnosis Plan: Hypothyroidism, unspecified Disc ussion: Lab discussed Increase Levothyroxine to 175mcg daily then recheck level in 6 weeks Follow Up: 6 weeks ICD-9 : 244.9 ICD-10 : E03.9 01/16/2018 Visit Diagnosis Plan: Mixed hyperlipidemia Discussion: Defers statin meds ICD-9 : 272.4 ICD-10 : E78.2 01/16/2018 Appointment: Jayna Vanessa WPtel: [address] [place], [place] [phone] FOLLOW UP 01/16/2018 Patient Education: Patient Medication Summary Completed 01/16/2018 Patient Education: Patient Medication Summary Completed 01/15/2018 Care Plan: RML COMPREHEN METABOLIC PANEL LOINC : 34794-5 Pending 01/15/2018 Care Plan: RML ASSAY THYROID STIM HORMONE Pending 01/15/2018 Care Plan: RML ASSAY OF FREE THYROXINE Pe nding 01/15/2018 Care Plan: RML LIPID PANEL LOINC : 97692 -1 Pending 01/15/2018 Care Plan: CBC Pending 01/15/2018 Care Plan: RML A1C HPLC LOINC : 97826-1 Pending 01/15/2018 Appointment: Jayna Vanessa WPtel: [address] [place] [phone] US CANCELED 12/26/2017 Appointment: Jayna Vanessa WPtel: [address] [place], [place] [phone] US CANCELED 10/28/2017 Visit Diagnosis Plan: Cervicalgia Discussion: xray ord ered of cervical spine and right shoulder. 40 mg kenalog/15 mg toradol prescribed to assist with pain. medrol dose pack prescribed to start tomorrow. instructed patient that if she d evelops worsening pain or no improvement, call or rtc. ICD-9 : 723.1 ICD-10 : M54.2 10/16/2017 Appointment: Genesis Fernández [address] [place], [place] [phone] ACUTE ILLNESS 10/16/2017 Patient Education: Patient Medication Summary Completed 10/16/2017 Care Plan: X-RAY EXAM NECK SPINE 4/5VWS cervical LOINC : 05654-8 Pending 10/16/2017 Visit Diagnosis Plan: Headache Discussion: Stat CT of head Dilated eye exam ICD-9 : 784.0 ICD-10 : R51 09/12/2017 Visit Diagnosis Plan: Dizziness and giddiness Discussi on: Check CBC,TSH, Free T4 now ICD-9 : 780.4 ICD-10 : R42 09/12/2017 Appointment: Jayna Vanessa WPtel: [phone] [phone] ACUTE ILLNESS 09/12/2017 Patient Education: Patient Medication Summary Completed 09/12/2017 Care Plan: CT HEAD/BRAIN W/O DYE LOINC : 12976-8 Pending 09/12/2017 Visit Diagnosis Plan: Cough Discussion: discussed cxra y and sputum results with patient and how they are negative for bacteria. patient restarted on her PPI to cover possiblity of GERD causing cough. 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 rtc with any new or worsening symptoms but continue with inhaler and nebulizer treatments as needed. ICD-9 : 786.2 ICD-10 : R05 08/20/2017 Appointment: Genesis Fernández [address] [place], [place] [phone] FOLLOW UP 08/20/2017 Patient Education: Patient Medication Summary Completed 08/20/2017 Visit Diagnosis Plan: COUGH Discussion: Check stat CXR Check Sputum culture ICD-9 : 786.2 ICD-10 : R05 08/13/2017 Appointment: Jayna Vanessa WPtel: [phone] [phone] ACUTE ILLNESS 08/13/2017 Patient Education: Patient Medication Summary Completed 08/13/2017 Visit Plan: Supportive care. Rest, Fluid s, Tylenol/Motrin prn fever or bodyaches. Notify if worsening symptoms. 07/29/2017 Visit Diagnosis Plan: Acute bronchospasm Discussion: T relagy 1p daily Proair 2p TID Rest/Fluids Tessalon Perles ICD-9 : 519.11 ICD-10 : J98.01 07/29/2017 Visit NOS Plan: Plan Notes: Supportive care. Rest, Fluids... 07/29/2017 Appointment: Jayna Vanessa WPtel: [address] [place], [place] [phone] ACUTE ILLNESS 07/29/2017 Patient Education: Patient Medication [...] : J09.X2 07/25/2017 Appointment: Genesis Fernández [address] [place] [address] ACUTE ILLNESS 07/25/2017 Patient Education: Patient Medication [...] : M25.50 06/10/2017 Appointment: Jayna Vanessa WPtel: [address] [place], [place] [phone] ACUTE ILLNESS 06/10/2017 Patient Education: Patient Medication Summary Completed 06/10/2017 Appointment: Jayna Vanessa WPtel: [address] [place], [place] [phone] [place] Does not need appointment CANCELED 2016 Appointment: Jayna Vanessa WPtel: [address] [place], [place] [phone] [place] CANCELED 05/30/2017 Visit Diagnosis Plan: Acute bronchitis, unspecified Di scussion: prednisone, zpack and tessalon perles prescribed to assist with symptoms. call or RTC if no improvement. humidifier at night. hydrate well and rest. discussed side effects from prednisone including increased blood sugars and instructed to monitor. ICD-9 : 490 ICD-10 : J20.9 05/28/2017 Appointment: Genesis Fernández 504 [facility] ACUTE ILLNESS 05/28/2017 Patient Education: Patient Medication Summary Completed 05/28/2017 Visit Diagnosis Plan: Type 2 diabetes mellitus without complications Discussion: Continue current meds accuchecks daily ICD-9 : 250.00 ICD-10 : E11.9 04/04/2017 Visit Diagnosis Plan: Encounter for [facility] adult medical examination without abnormal findings Discussion: Flu and Pneumovax given Mamm ogram ordered Lab discussed ICD-9 : V70.9 ICD-10 : Z00.00 04/04/2017 Appointment: Jayna Vanessa WPtel: [phone] [phone] Annual Well Visit 04/04/2017 Patient Education: Patient Medication Summary Completed 04/04/2017 Care Plan: MAMMOGRAM SCREENING LOINC : 2 6347-5 Pending 04/04/2017 Patient Education: Patient Medication Summary Completed 03/21/2017 Care Plan: RML COMPREHEN METABOLIC PANEL LOINC : 52325-1 Pending 03/21/2017 Care Plan: RML ASSAY THYROID STIM HORMONE Pending 03/21/2017 Care Plan: RML ASSAY OF FREE THYROXINE Pe nding 03/21/2017 Care Plan: CBC Pending 03/21/2017 Care Plan: RML A1C HPLC LOINC : 68582-5 Pending 03/21/2017 Visit Diagnosis Plan: Mixed hyperlipidemia Discussion: Continue current meds Follow Up: 6 months ICD-9 : 272.4 ICD-10 : E78.2 11/28/2016 Visit Diagnosis Plan: Hypothyroidism, unspecified Disc ussion: Continue current dose ICD-9 : 244.9 ICD-10 : E03.9 11/28/2016 Visit Diagnosis Plan: Vitmw-[id number] deficiency D iscussion: Continue weekly injections ICD-9 : 273.4 ICD-10 : E88.01 11/28/2016 Visit Diagnosis Plan: Sebaceous cyst Discussion: Emily daniel eal Discussed removal ICD-9 : 706.2 ICD-10 : L72.3 11/28/2016 Appointment: Jayna Vanessa WPtel: [phone] [phone] 6/6 rang and rang on home phone and mobile confirmed~sl FOLLOW UP 11/28/2016 Patient Education: Patient Medication Summary Completed 11/28/2016 Patient Education: Patient Medication Summary Completed 11/20/2016 Referral: Tom Mcrae WPtel: [address] [facility] 440 [id number] [place] Referral Initiated 07/05/2016 Visit Plan: Start with CT abdomen/pelvis Will need EGD and Colonoscopy so will refer to Dr. Pina Obtain most recent lab results 06/05/2016 Appointment: Jayna Vanessa WPtel: [phone] [phone] ACUTE ILLNESS 06/05/2016 Patient Education: Patient Medication Summary Completed 06/05/2016 Care Plan: CT PELVIS W/O DYE LOINC : 361 08-9 Pending 06/05/2016 Care Plan: CT ABDOMEN W/O DYE LOINC : 36 103-0 Pending 06/05/2016 Care Plan: Referral Order SNOMED-CT : 30 [id number] Pending 06/05/2016 App[facility]ment: [facility]el[phone] [place] INJECTION 05/01/2016 Patient Education: Patient Medication Summary Completed 05/01/2016 Patient Education: Patient Medication Summary Completed 04/26/2016 Care Plan: RML COMPREHEN METABOLIC PANEL LOINC : 08289-2 Pending 04/26/2016 Care Plan: RML ASSAY THYROID STIM HORMONE Pending 04/26/2016 Care Plan: RML ASSAY OF FREE THYROXINE Pe nding 04/26/2016 Care Plan: RML A1C HPLC LOINC : 58732-2 Pending 04/26/2016 Referral: Aditya Stone WPtel: [address] [facility] [address] [id number] Arrival time is 10:00 Am~sl Appointment Confirme d 11/25/2015 Visit Plan: Had fasting lab done this AM Continue PT for right shoulder Continue current meds Referral to Dr. Temo Stone for incontinence 11/08/2015 Appointment: Jayna Vanessa WPtel: [phone] 11/06 confirmed-sp FOLLOW UP 11/08/2015 Patient Education: Patient Medication Summary Completed 11/08/2015 Appointment: Jayna Vanessa WPtel: [address] [place], [place] [phone] 10/19 rescheduled ~sl RESCHEDULED 10/24/2015 Appointment: Jayna Vanessa WPtel: [address] [place], [place] [phone] [place] 10/10rang and rang ~sl RESCHEDULED 6 Patient Education: Patient Medication Summary Completed 10/12/2015 Care Plan: RML COMPREHEN METABOLIC PANEL LOINC : 96051-9 Pending 10/12/2015 Care Plan: RML ASSAY THYROID STIM HORMONE Pending 10/12/2015 Care Plan: RML ASSAY OF FREE THYROXINE Pe nding 10/12/2015 Care Plan: RML LIPID PANEL LOINC : 40029 -1 Pending 10/12/2015 Care Plan: CBC Pending 10/12/2015 Care Plan: RML A1C HPLC LOINC : 69424-4 Pending 10/12/2015 Care Plan: VITAMIN D TOTAL (25 HYDROXY) P ending 10/12/2015 Appointment: Jayna Vanessa WPtel: [address] [place], [place] [phone] [place] CANCELED 09/22/2015 Visit Plan: Lab discussed Change thyroid med back to brand synthroid and recheck thyroid lab in 3mos 07/19/2015 Appointment: Jayna Vanessa WPtel: [phone] 07/18/15 appt confirmed cn FOLLOW UP 07/19 Patient Education: Patient Medication Summary Completed 07/19/2015 Patient Education: Patient Medication Summary Completed 07/12/2015 Visit Plan: Lab discussed Change synthro id to 150mcg all days but M, W, F will change to 175mcg Check Lab and fwup in 3mos Flu shot given 03/28/2015 Appointment: Jayna Vanessa WPtel: [address] [place], [place] [phone] 03/25 rang for 1:40 seconds 03/28/ appt confirmed cn FOLLOW UP 03/28/2015 Patient Education: Patient Medication Summary Completed 03/28/2015 Patient Education: Patient Medication Summary Completed 03/21/2015 Visit Plan: Continuue fluoxetine at high er dose Increase synthroid to 150mcg as ordered Decrease propranolol to 20mg po BID Check thyroid lab and fwup in 2mos Prevnar 13 given 02/08/2015 Appointment: Jayna Vanessa WPtel: [address] [place], [place] [phone] FOLLOW UP 02/08/2015 Patient Education: Patient Medication Summary Completed 02/08/2015 Visit Plan: Check CBC, CMP, TSH, Free T4 , uric acid, lactate now Increase fluoxetine to 40mg daily Recheck in 1month Notify if worsening Culture urine 01/11/2015 Appointment: Jayna Vanessa WPtel: [address] [place], [place] [phone] ACUTE ILLNESS 01/11/2015 Patient Education: Patient Medication Summary Completed 01/11/2015 Visit Plan: Lab discussed Accuchecks lucian ly Medrol dose pack Rx for back brace 11/24/2014 Appointment: Jayna Vanessa WPtel: [address] [place], [place] [phone] 11/23 confirmed -mf FOLLOW UP 11/24/2014 Patient Education: Patient Medication Summary Completed 11/24/2014 Appointment: Galina Leos WPtel: [address] [place], [place] [phone] ER Follow UP 11/19/2014 Patient Education: Patient Medication Summary Completed 11/19/2014 Appointment: Conchita Capone WPtel: [address] [place] [address] ACUTE ILLNESS 10/27/2014 Patient Education: Patient Medication Summary Completed 10/27/2014 Patient Education: [facility] - Saving AutoInj - 18+ - Dynamic Portal ID Completed 10/27/2014 Appointment: Conchita Capone WPtel: [address] [place], [place] [phone] ACUTE ILLNESS 09/23/2014 Patient Education: Patient Medication Summary Completed 09/23/2014 Visit Plan: Lab discussed Continue curre nt meds 07/28/2014 Appointment: Jayna Vanessa WPtel: [address] [place], [place] [phone] 07/27 FOLLOW UP 07/28/2014 Patient Education: Patient Medication Summary Completed 07/28/2014 Patient Education: Patient Medication Summary Completed 07/21/2014 Patient Education: Patient Medication Summary Completed 04/27/2014 Appointment: Jayna Vanessa WPtel: [address] [place], [place] [phone] 03/29 FOLLOW UP 03/30/2014 Patient Education: Patient Medication Summary Completed 03/30/2014 Patient Education: [facility] - Saving AutoInj - 18+ - Dynamic Portal ID Completed 03/30/2014 Visit Plan: Lab discussed DC Vytorin Tri al of Lipitor 80mg q HS Continue Trilipix Check Lipids/CMP/thyroid and HbA1C in 4mos then fwup 11/24/2013 Appointment: Jayna Vanessa WPtel: [address] [place], [place] [phone] FOLLOW UP 11/24/2013 Patient Education: Patient Medication Summary Completed 11/24/2013 Patient Education: [facility] - Saving AutoInj - 18+ - Dynamic Portal ID Completed 11/24/2013 Visit Plan: Lab discussed Daily accuchec ks Cont current meds 08/25/2013 Appointment: Jayna Vanessatel: [address] [place], [place] [phone] 08/24 FOLLOW UP 08/25/2013 Patient Education: Patient Medication Summary Completed 08/25/2013 Appointment: Jayna Vanessa WPtel: [address] [place], [place] [phone] FOLLOW UP 08/05/2013 Visit Plan: Continue Wellbutrin/Fluoxeti ne Fasting lab and fwup in 2mos 06/29/2013 Appointment: Jayna Vanessa WPtel: [address] [place], [place] [phone] 06/26 left [facility] FOLLOW UP 06/29/2013 Patient Education: Patient Medication Summary Completed 06/29/2013 Visit Plan: Increase Wellbutrin to 300mg daily Add fluoxetine 20mg daily 05/26/2013 Appointment: Jayna Vanessa WPtel: [address] [place], [place] [phone] FOLLOW UP 05/26/2013 Patient Education: Patient Medication Summary Completed 05/26/2013 Visit Plan: OK to proceed with planned [facility] surgery next week Continue current meds Check fasting lab--CBC, CMP, TSH, free T4, HbA1C, Lipids, Vit D at end of this week prior to surgery 05/06/2013 Appointment: Jayna Vanessa WPtel: [address] [place], [place] [phone] FOLLOW UP 05/06/2013 Patient Education: Patient Medication Summary Completed 05/06/2013 Appointment: Jayna Vanessa WPtel: [address] [place], [place] [phone] ACUTE ILLNESS 04/23/2013 Patient Education: Patient Medication Summary Completed 04/23/2013 Patient Education: [facility] - Saving AutoInj - 18+ - Dynamic Portal ID Completed 04/23/2013 Visit Plan: Decrease Lasix to 20mg daily Leave potassium at 20meq daily Check Chem 7 in 1wk 03/31/2013 Appointment: Jayna Vanessa WPtel: [address] [place], [place] [phone] FOLLOW UP 03/31/2013 Patient Education: Patient Medication Summary Completed 03/31/2013 Appointment: Conchita Capone WPtel: [address] [place], [place] [phone] ACUTE ILLNESS 03/05/2013 Patient Education: Patient Medication Summary Completed 03/05/2013 Visit Plan: Lab discussed Continue curre nt meds Pt is going to start allergy injections Go for port placement to continue prolastin infusions 02/04/2013 Appointment: Jayna Vanessa WPtel: [address] [place], [place] [phone] ACUTE ILLNESS 02/04/2013 Patient Education: Patient Medication Summary Completed 02/04/2013 Visit Plan: 2-D ECHO discussed See Pulmo nology Pt states cough had went away with allergy meds and then has came back Continue allergy meds and add pepcid BID Discussed allergy testing 11/27/2012 Appointment: Jayna Vanessa WPtel: [phone] FOLLOW UP 11/27/2012 Patient Education: Patient Medication Summary Completed 11/27/2012 Visit Plan: PFTS discussed Proceed with 2-D ECHO and pulmonology evaluation Pt was concerned propranolol could be cause but discussed this is likely not culpri HOMERO was DCed in 2009, is on PPI, has seen ENT, will restart allergy meds--may need allergy testing 11/11/2012 Appointment: Jayna Vanessa WPtel: [phone] FOLLOW UP 11/11/2012 Patient Education: Patient Medication Summary Completed 11/11/2012 Visit Plan: Hold metformin Check CMP, Li pids, TSH, Free T4, HbA1C Check PFTs 10/20/2012 Appointment: Jayna Vanessa WPtel: [address] [place], [place] [phone] 10/17 left message FOLLOW UP 10/20/2012 Patient Education: Patient Medication Summary Completed 10/20/2012 Appointment: Jayna Vanessa WPtel: [address] [place], [place] [phone] 10/13 FOLLOW UP 10/14/2012 Visit Plan: Discussed fluids and rest. W ill monitor for worsening symptoms/fever. Azithromycin, medrol dose pack and refil on cough syrup. Pt. will notify if symptoms worsen or persist. 09/03/2012 Appointment: Lizzie Kelly WPtel: [address] [place], [place] [phone] ACUTE ILLNESS 09/03/2012 Patient Education: Patient Medication Summary Completed 09/03/2012 Visit Plan: discussed that symptoms star edvin around Lion time. Will begin culturelle BID and monitor for fever or worsening symptoms. Fluid intake important. CBC, CMP, sed rate and stool studies. Order written for Mag lab. 07/23/2012 Appointment: Lizzie Kelly WPtel: [address] [place], [place] [phone] ACUTE ILLNESS 07/23/2012 Patient Education: Patient Medication Summary Completed 07/23/2012 Visit Plan: Increase Metformin to 1000mg po BID Accuchecks daily Continue rest of meds at current dose and low-fat, low-sugar diet with increased exercise Check fasting lab in 4mos Restart Nexium 05/20/2012 Appointment: Jayna Vanessa WPtel: [address] [place], [place] [phone] patient had bad night so missed 05/06 appt...left voicemail 05/19 FOLLOW UP 05/20/2012 Patient Education: Patient Medication Summary Completed 05/20/2012 Appointment: Jayna Vanessa WPtel: [address] [place], [place] [phone] patient had bad night so missed 05/06 appt time. cn FOLLOW UP 05/06/2012 Appointment: Galina Leos WPtel: [address] [place], [place] [phone] ACUTE ILLNESS 04/04/2012 Patient Education: Patient Medication Summary Completed 04/04/2012 Visit Plan: Cryotherapy as above 02/20/2012 Appointment: Jayna Vanessa WPtel: [address] [place], [place] [phone] 02/18 OFFICE SURGERY 02/20/2012 Patient Education: Patient Medication Summary Completed 02/20/2012 Visit Plan: Increase Metfromin to 1000mg daily Continue all other current meds 01/02/2012 Appointment: Jayna Vanessa WPtel: [address] [place], [place] [phone] FOLLOW UP 01/02/2012 Patient Education: Patient Medication Summary Completed 01/02/2012 Appointment: Lizzie Kelly WPtel: [address] [place] [address] ACUTE ILLNESS 09/04/2011 Patient Education: Patient Medication Summary Completed 09/04/2011 Visit Plan: Finish Keflex Proceed with c olonoscopy Increase aspirin to 325mg daily for next 2wks Add Vimovo 20/500mg po Daily 08/14/2011 Appointment: Jayna Vanessa WPtel: [address] [place], [place] [phone] [facility] 08/14/2011 Patient Education: Patient Medication Summary Completed 08/14/2011 Appointment: Lizzie Kelly WPtel: [address] [place], [place] [phone] ACUTE ILLNESS 07/31/2011 Patient Education: Patient Medication Summary Completed 07/31/2011 Visit Plan: Doxy and steroids. Codeine/g uiaf cough syrup. Pt. will monitor for worsening symptoms and notify if fever occurs. Encouraged rest and fluids. 07/25/2011 Appointment: Lizzie Kelly WPtel: [address] [place], [place] [phone] ACUTE ILLNESS 07/25/2011 Patient Education: Patient Medication Summary Completed 07/25/2011 Visit Plan: Check full lab in 3mos Radha nue with all current meds Continue PT for knee 07/12/2011 Appointment: Jayna Vanessa WPtel: [address] [place], [place] [phone] FOLLOW UP 07/12/2011 Patient Education: Patient Medication Summary Completed 07/12/2011 Visit Plan: Continue symbicort for 2 mor e weeks 05/09/2011 Appointment: Jayna Vanessa WPtel: [address] [place], [place] [phone] FOLLOW UP 05/09/2011 Patient Education: Patient Medication Summary Completed 05/09/2011 Appointment: Jayna Vanessa WPtel: [address] [place], [place] [phone] ER Follow UP 05/02/2011 Patient Education: Patient Medication Summary Completed 05/02/2011 Visit Plan: Pt. has recently finished ro und of Cefdinir with no improvement. Chest x-ray, CBC, CMP and mycoplasma order given to pt. Pt. will start Doxycycline. 04/25/2011 Appointment: Lizzie Kelly WPtel: [address] [place] [address] FOLLOW UP 04/25/2011 Patient Education: Patient Medication Summary Completed 04/25/2011 Appointment: Lizzie Kelly WPtel: [address] [place] [address] ACUTE ILLNESS 04/04/2011 Patient Education: Patient Medication Summary Completed 04/04/2011 Appointment: Lizzie Kelly WPtel: [address] [place], [place] [phone] ACUTE ILLNESS 04/03/2011 Visit Plan: Decrease Synthroid to 150mcg daily Repeat TSH and Free T4 in 2mos Knee injection as above 03/01/2011 Appointment: Jayna Vanessa WPtel: [address] [place], [place] [phone] 03/01/2011 Patient Education: Patient Medication Summary Completed 03/01/2011 Visit Plan: Increase Synthroid to 175mcg po daily Check TSH, Free T4 in 8wks Injection given to knee as above Continue Pt 01/04/2011 Appointment: Jayna Vanessa WPtel: [address] [place], [place] [phone] FOLLOW UP 01/04/2011 Patient Education: Patient Medication Summary Completed 01/04/2011 Visit Plan: Septra DS, Mupirocin topical . Pt. will observe wound and report worsening symptoms. 12/07/2010 Appointment: Lizzie Kelly WPtel: [address] [place], [place] [phone] ACUTE ILLNESS 12/07/2010 Patient Education: Patient Medication Summary Completed 12/07/2010 Visit Plan: Increase Synthroid to 150mcg po daily Add Metformin Diet and exercise discussed at length again Repeat thyroid US Add Vit D level Will see if polydipsia improves with metformin 10/09/2010 Appointment: Jayna Vanessa WPtel: [address] [place], [place] [phone] FOLLOW UP 10/09/2010 Patient Education: Patient Medication Summary Completed 10/09/2010 Visit Plan: Increase Synthroid to 125mcg daily Decrease Vit D 50,000 u three times a week Discussed HRT Proceed with sleep study Fwup pending sleep study results 08/07/2010 Appointment: Jayna Vanessa WPtel: [address] [place], [place] [phone] FOLLOW UP 08/07/2010 Patient Education: Patient Medication Summary Completed 08/07/2010 Visit Plan: Decrease Synthroid to 100mcg QD Check thyroid lab in 2mos Check estradiol levels in 2mos--discussed HRT Increase Vit D 50,000u to 1 daily M-F 06/06/2010 Appointment: Jayna Vanessa WPtel: [address] [place], [place] [phone] ACUTE ILLNESS 06/06/2010 Patient Education: Patient Medication Summary Completed 06/06/2010 Visit Plan: Injections to knees as above 04/12/2010 Appointment: Jayna Vanessal: [address] [place], [place] [phone] OFFICE SURGERY 04/12/2010 Patient Education: Patient Medication Summary Completed 04/12/2010 Visit Plan: Decrease Synthroid to 175mcg QD Check lab in 2mos Change daily Vit D to weekly 03/20/2010 Appointment: Jayna Vanessa WPtel: [address] [place], [place] [phone] ESTABLISHED PATIENT 03/20/2010 Patient Education: Patient Medication Summary Completed 03/20/2010 Appointment: Jayna Vanessa WPtel: [address] [place], [place] [phone] ACUTE ILLNESS 01/30/2010 Patient Education: Patient Medication Summary Completed 01/30/2010 Appointment: Jayna Vanessa WPtel: [address] [place], [place] [phone] ACUTE ILLNESS 01/09/2010 Patient Education: Patient Medication Summary Completed 01/09/2010 Appointment: Jayna Vanessa WPtel: [address] [place], [place] [phone] BP CHECK 11/07/2009 Patient Education: Patient Medication Summary Completed 11/07/2009 Appointment: Jayna Vanessa WPtel: [address] [place], [place] [phone] OFFICE SURGERY 10/26/2009 Patient Education: Patient Medication Summary Completed 10/26/2009 Appointment: Lizzie Kelly WPtel: [address] [place], [place] [phone] OFFICE SURGERY 10/17/2009 Patient Education: Patient Medication [...] up appnt. 10/04/2009 Appointment: Lizzie Kelly WPtel: [address] [place], [place] [phone] ACUTE ILLNESS 10/04/2009 Patient Education: Patient Medication Summary Completed 10/04/2009 Visit Plan: E-scribed refils. Pt. report s that she normally has lab work drawn and orders are given (faxed) to her normal lab facility by Patricia. Pt. states her migraine headaches have abated for now and that she is going to see her migraine doctor in [place] in the near future(Dr Cook) Pt will seek re-eval as necessary for acute issues. 09/21/2009 Appointment: Lizzie Kelly WPtel: [address] [place], [place] [phone] [place] CHECK UP 09/21/2009 Patient Education: Patient Medication Summary Completed 09/21/2009 Appointment: Lizzie Kelly WPtel: [address] [place], [place] [phone] [place] CHECK UP 09/20/2009 Appointment: Lizzie Kelly WPtel: [address] [place], [place] [phone] [place] FOLLOW UP 09/19/2009 Referral: Alf Lang WPtel: #[facility] [place] Referral Appointment Requested Referral: Singh Pina WPtel: [address] [facility] [place] Referral Appointment Requested Referral: Aditya Stone WPtel: [address] [facility] [address] [id number] [place] Referral Appointment Requested Instructions Comment Date [...] 10/04/2009 . E-scribed refils. Pt. reports that virgen normally has lab work drawn and orders are given (faxed) to her normal lab facility by Patricia. Pt. states her migraine headaches have abated for now and that she is going to see her migraine doctor in [place] in the near future(Dr Cook) Pt will [...]
--- OUTSIDE RECORDS SUMMARY | 2022-09-10 17:08 | XMS REPORT | CCD ---
Author Author Marcella Vanessa D.O. Organization [facility] Address [address] [place] [address] Phone Care Team Providers Care Graphic Specialist Name Role Phone Jayna Vanessa D.O., PP Unavailable CCM Unavailable Summary Purpose Interface Exchange Insurance Providers Payer name Policy type / Coverage type Covered libertarian ID Effective Begin Date Effective End Date [employer] Commercial Insurance [id number] Unknown Commercial Insurance [id number] Unknown Family history Side Diagnosis Age At Onset Heart disease Unknown Diabetes Unknown Sister Diagnosis Age At Onset Diabetes Unknown Brother Diagnosis Age At Onset Diabetes Unknown Mother Diagnosis Age At Onset Heart disease Unknown Father Diagnosis Age At Onset Heart disease Unknown Social History Social History Element Codes Description Effective Dates Tobacco history SNOMED CT: 922632885 Never smoker 04/04/2011 Marital status Unknown 09/21/2009 [...] gastroenteritis ICD-10: K52.9 ICD-9: 558.9 07/05/2020 Active 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 11/28/2016 Active [...] ANXIETY STATE NOS ICD-9: 300.00 03/05/2013 Active Vavsa-5-ueblzfwxquv 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 02/04/2013 A ctive DYSPNEA [...] Fill Instructions ciprofloxacin 250 mg tablet RxNorm: 225943 Take 1 Tablet(s) Ora l Q12H 06/29/2022 07/03/2022 Inactive levothyroxine 150 mcg tablet RxNorm: 218177 Take 1 Tablet(s) Or al QAM 06/03/2022 08/01/2022 Inactive Wellbutrin XL 300 mg 24 hr tablet, extended release RxNorm: 999145 Take 1 Tablet(s) Oral QAM replaces 150mg dose 05/28/2022 08/25/2022 Active Xyzal 5 mg tablet RxNorm: 012240 Take 1 Tablet(s) Oral QPM 05/10/2010/06/2022 Active Claritin 10 mg tablet RxNorm: 514847 Take 1 Tablet(s) Oral QAM 04/2409/06/2022 Active Flonase Allergy Relief 50 mcg/actuation nasal spray,suspensi on RxNorm: 1022181 Take 1 [place] Nasal two times a day 05/10/2022 06/08/2022 Inactive Wellbutrin XL 150 mg 24 hr tablet, extended release RxNorm: 730556 Take 1 Tablet(s) Oral QAM 05/10/2022 05/27/2022 Inactive sumatriptan 100 mg tablet RxNorm: 453478 1 Tablet(s) Or al after onset of migraine; may repeat after 2 hours if headache returns, not to exceed 200mg in 24hrs replaces rizatriptan 04/19/2022 04/19/2022 Inactive sumatriptan 100 mg tablet RxNorm: 070050 1 Tablet(s) Or al after onset of migraine; may repeat after 2 hours if headache returns, not to exceed 200mg in 24hrs replaces rizatriptan 04/19/2022 04/19/2022 Inactive propranolol 20 mg tablet RxNorm: 843283 TAKE 1 TABLET BY MOUTH TWICE DAILY 04/18/2022 10/14/2022 Active rizatriptan 10 mg disintegrating tablet RxNorm: 956584 Take 1 Tablet(s) Oral on top of tongue, allow to dissolve then swallow once, may repeat every 2 hrs; max 30 mg/24hrs 04/18/2022 04/18/2022 Inactive prednisone 20 mg tablet RxNorm: 287677 Take 1 Tablet(s) Oral tw o times a day 02/15/2022 02/21/2022 Inactive Nurtec ODT 75 mg disintegrating tablet RxNorm: 3155637 T ary 1 Tablet(s) Oral per 24 hours as needed for migraine 02/09/2022 02/09/2022 Inactive Nurtec ODT 75 mg disintegrating tablet RxNorm: 8016362 T ary 1 Tablet(s) Oral per 24 hours as needed for migraine 02/09/2022 02/09/2022 Inactive fluticasone propionate 50 mcg/actuation nasal spray,suspensi on RxNorm: 4193842 SPRAY ONE SPRAY IN EACH NOSTRIL TWICE DAILY NEEDED 02/05/20222021 Inactive levothyroxine 150 mcg tablet RxNorm: 896209 Take 1 Tablet(s) Or al QAM 02/04/2022 02/04/2022 Inactive albuterol sulfate HFA 90 mcg/actuation aerosol inhaler RxNor m: 6236187 Inhale 2 Puff(s) Oral Q4H as needed 01/05/2022 04/04/2022 Inactive pantoprazole 40 mg tablet,delayed release RxNorm: 612628 Take 1 Tablet(s) Oral QD 01/04/2022 07/02/2022 Inactive propranolol 20 mg tablet RxNorm: 853051 TAKE 1 TABLET BY MOUTH TWICE DAILY 01/04/2022 04/17/2022 Inactive levothyroxine 150 mcg tablet RxNorm: 014797 Take 1 Tablet(s) Or al QAM 12/05/2021 12/05/2021 Inactive metronidazole 500 mg tablet RxNorm: 548695 Take 1 Table t(s) Oral two times a day 11/29/2021 12/05/2021 Inactive Singulair 10 mg tablet RxNorm: 816906 Take 1 Tablet(s) Oral QPM 06/202105/09/2022 Inactive Diflucan 100 mg tablet RxNorm: 652133 Take 1 Tablet(s) Oral QD 06/202111/28/2021 Inactive pantoprazole 40 mg tablet,delayed release RxNorm: 098521 Take 1 Tablet(s) Oral QD 11/06/2021 11/06/2021 Inactive fluticasone propionate 50 mcg/actuation nasal spray,suspensi on RxNorm: 0656637 SPRAY ONE SPRAY IN EACH NOSTRIL TWICE DAILY NEEDED 11/03/20212021 Inactive scopolamine 1 mg over 3 days transdermal patch RxNorm: 12570 2 Apply 1 Unit Dose Transdermal Q72H behind ear 10/30/2021 02/05/2022 Inactive albuterol sulfate HFA 90 mcg/actuation aerosol inhaler RxNor m: 5283554 Inhale 2 Puff(s) Oral Q4H as needed 10/05/2021 11/24/2021 Inactive pantoprazole 40 mg tablet,delayed release RxNorm: 737165 Take 1 Tablet(s) Oral QD 10/05/2021 10/05/2021 Inactive meloxicam 7.5 mg tablet RxNorm: 811189 Take 1 Tablet(s) Oral QD for pain 09/05/2021 09/11/2021 Inactive baclofen 10 mg tablet RxNorm: 254721 Take 0.5-1 Tablet( s) Oral three times per week as needed for muscle spasm 09/05/2021 02/05/2022 Inactive prednisone 20 mg tablet RxNorm: 707829 Take 1 Tablet(s) Oral QD 08/202108/28/2021 Inactive pantoprazole 40 mg tablet,delayed release RxNorm: 132136 Take 1 Tablet(s) Oral QD 07/07/2021 09/04/2021 Inactive fluticasone propionate 50 mcg/actuation nasal spray,suspensi on RxNorm: 1997785 Take 1 [place] Nasal two times a day in each nostrilas needed 07/04/2021 10/01/2021 Inactive Decadron 6 mg tablet RxNorm: 408093 Take 1 Tablet(s) Oral QD 202107/08/2021 Inactive albuterol sulfate HFA 90 mcg/actuation aerosol inhaler RxNor m: 0549920 Inhale 2 Puff(s) Oral Q4H as needed 06/08/2021 09/05/2021 Inactive propranolol 20 mg tablet RxNorm: 368595 TAKE 1 TABLET BY MOUTH TWICE DAILY 06/08/2021 06/08/2021 Inactive pantoprazole 40 mg tablet,delayed release RxNorm: 523484 Take 1 Tablet(s) Oral QD 04/09/2021 06/07/2021 Inactive ProAir HFA 90 mcg/actuation aerosol inhaler RxNorm: 001436 2 Puff(s) Inhalation Q4H as needed 03/13/2021 03/13/2021 Inactive citalopram 10 mg tablet RxNorm: 315607 1 Tablet(s) Oral two antonio es a day 03/13/2021 02/05/2022 Inactive levothyroxine 150 mcg tablet RxNorm: 542029 TAKE 1 Tabl et BY MOUTH EVERY MORNING (REPLACES 137 MCG DOSE) 03/09/2021 03/09/2021 Inactive pantoprazole 40 mg tablet,delayed release RxNorm: 739381 Take 1 Tablet(s) Oral QD 02/08/2021 04/08/2021 Inactive triamcinolone acetonide 0.1 % topical cream RxNorm: 1345762 Take Application Topical two times a day to arm rash 01/19/2021 01/19/2021 Inactive prednisone 20 mg tablet RxNorm: 786953 Take 1 Tablet(s) Oral QD 01/23/2021 Inactive levothyroxine 150 mcg tablet RxNorm: 306104 Take 1 Tabl et(s) Oral QAM replaces 137mcg dose 01/03/2021 01/03/2021 Inactive prednisone 20 mg tablet RxNorm: 085101 Take 2 Tablet(s) Oral QD 01/202112/03/2020 Inactive promethazine-DM 6.25 mg-15 mg/5 mL oral syrup RxNorm: 304475 Take 5 Milliliter(s) Oral Every 6 hours as needed, not to exceed 30 mL in 24 hours 11/29/2020 12/03/2020 Inactive doxycycline hyclate 100 mg capsule RxNorm: 2520487 1 Cap kimi(s) Oral two times a day 09/29/2020 10/05/2020 Inactive Lalita-D 12 Hour 60 mg-120 mg tablet,extended release RxNor m: 963561 1 Tablet(s) Oral QD 09/19/2020 10/03/2020 Inactive ProAir HFA 90 mcg/actuation aerosol inhaler RxNorm: 937341 2 Inhalation Q4H as needed 09/19/2020 09/19/2020 Inactive propranolol 20 mg tablet RxNorm: 897503 TAKE 1 TABLET BY MOUTH TWICE DAILY 09/15/2020 09/15/2020 Inactive pantoprazole 40 mg tablet,delayed release RxNorm: 625690 1 Tabl et(s) Oral QD 09/09/2020 09/08/2020 Inactive pantoprazole 40 mg tablet,delayed release RxNorm: 289307 1 Tabl et(s) Oral QD 09/09/2020 11/07/2020 Inactive propranolol 20 mg tablet RxNorm: 034706 TAKE 1 TABLET BY MOUTH TWICE DAILY 08/24/2020 09/09/2020 Inactive levothyroxine 137 mcg tablet RxNorm: 202043 1 Tablet(s) Oral QD 08/202001/02/2021 Inactive bbpgncma-mzittwvxw-hysxvloc 3.5 mg/mL-10,000 unit/mL-0 .1% eye drops RxNorm: 000038 4 Drop(s) Otic three times a day 08/10/2020 02/05/2022 Inactive prednisone 20 mg tablet RxNorm: 477165 1 Tablet(s) Oral two antonio es a day 08/01/2020 08/08/2020 Inactive pantoprazole 40 mg tablet,delayed release RxNorm: 818375 1 Tabl et(s) Oral QD 07/13/2020 09/08/2020 Inactive ondansetron HCl 4 mg tablet RxNorm: 623218 1 Tablet(s) Oral Q4H as needed for nausea 07/13/2020 05/09/2022 Inactive levothyroxine 137 mcg tablet RxNorm: 128496 1 Tablet(s) Oral QD 08/23/2020 Inactive pantoprazole 40 mg tablet,delayed release RxNorm: 580030 1 Tabl et(s) Oral QD 07/13/2020 07/12/2020 Inactive ondansetron HCl 4 mg tablet RxNorm: 455532 1 Tablet(s) Oral Q4H as needed for nausea 07/05/2020 07/12/2020 Inactive Flagyl 500 mg tablet RxNorm: 966116 1 Tablet(s) Oral three time s a day 07/05/2020 07/12/2020 Inactive Fish Oil 1,000 mg (120 mg-180 mg) capsule RxNorm: 1 Caps ule(s) Oral QD 06/23/2020 09/18/2020 Inactive rosuvastatin 10 mg tablet RxNorm: 209143 1 Tablet(s) Oral MWF 06/2306/22/2020 Inactive rosuvastatin 10 mg tablet RxNorm: 813290 1 Tablet(s) Oral MWF 06/2302/05/2022 Inactive fluconazole 100 mg tablet RxNorm: 062730 1 Tablet(s) Oral QOD 05/1706/21/2020 Inactive Macrobid 100 mg capsule RxNorm: 195986 1 Capsule(s) Oral two ti mes a day 05/17/2020 05/24/2020 Inactive levothyroxine 137 mcg tablet RxNorm: 101261 TAKE 1 TABLET BY [facility] ONCE DAILY 05/16/2020 07/12/2020 Inactive Eliquis 5 mg tablet RxNorm: 7173774 1 Tablet(s) Oral two times a da y 04/25/2020 02/05/2022 Inactive propranolol 20 mg tablet RxNorm: 460157 TAKE 1 TABLET BY MOUTH TWICE DAILY 04/25/2020 08/23/2020 Inactive doxycycline hyclate 100 mg capsule RxNorm: 2330349 1 Cap kimi(s) Oral two times a day 03/24/2020 03/31/2020 Inactive doxycycline hyclate 100 mg capsule RxNorm: 5220827 1 Cap kimi(s) Oral two times a day 03/24/2020 03/23/2020 Inactive propranolol 20 mg tablet RxNorm: 686232 TAKE 1 TABLET BY MOUTH TWICE DAILY 03/15/2020 04/13/2020 Inactive Eliquis 5 mg tablet RxNorm: 2039117 1 Tablet(s) Oral two times a da y 03/14/2020 04/24/2020 Inactive Eliquis 5 mg tablet RxNorm: 1875048 1 Tablet(s) Oral two times a da y 03/14/2020 03/13/2020 Inactive levofloxacin 500 mg tablet RxNorm: 261438 1 Tablet(s) Oral QD 02/1802/26/2020 Inactive levofloxacin 500 mg tablet RxNorm: 413715 1 Tablet(s) Oral QD 02/1802/18/2020 Inactive Tessalon Perles 100 mg capsule RxNorm: 944035 1 Capsule (s) Oral three times a day as needed 02/16/2020 02/25/2020 Inactive levothyroxine 137 mcg tablet RxNorm: 621901 TAKE 1 TABLET BY [facility] ONCE DAILY 02/15/2020 03/15/2020 Inactive ProAir HFA 90 mcg/actuation aerosol inhaler RxNorm: 999720 2 Inhalation Q4H as needed 02/11/2020 09/18/2020 Inactive Medrol (Isaiah) 4 mg tablets in a dose pack RxNorm: 628338 Tablet( s) Oral 02/11/2020 02/11/2020 Inactive levothyroxine 137 mcg tablet RxNorm: 375708 TAKE 1 TABLET BY [facility] ONCE DAILY 12/16/2019 01/14/2020 Inactive propranolol 20 mg tablet RxNorm: 863036 TAKE 1 TABLET BY MOUTH TWICE DAILY 12/16/2019 01/14/2020 Inactive levothyroxine 137 mcg tablet RxNorm: 850443 TAKE 1 TABLET BY [facility] ONCE DAILY 10/16/2019 11/14/2019 Inactive prednisone 20 mg tablet RxNorm: 625652 1 Tablet(s) Oral two times a day for rash/hives 09/29/2019 10/04/2019 Inactive Probiotic 10 billion cell capsule RxNorm: 2418880 1 Capsule(s) O ral QD 09/14/2019 02/10/2020 Inactive Bactrim DS 800 mg-160 mg tablet RxNorm: 520016 1 Tablet(s) Oral two times a day 09/14/2019 09/13/2019 Inactive citalopram 10 mg tablet RxNorm: 920174 1 Tablet(s) Oral two antonio es a day 09/14/2019 12/20/2019 Inactive hydroxychloroquine 200 mg tablet RxNorm: 255102 1 Table t(s) Oral two times a day 09/14/2019 02/05/2022 Inactive Bactrim DS 800 mg-160 mg tablet RxNorm: 650386 1 Tablet(s) Oral two times a day 09/14/2019 09/24/2019 Inactive Cipro 250 mg tablet RxNorm: 708624 1 Tablet(s) Oral two times a day 09/02/2019 09/08/2019 Inactive levothyroxine 137 mcg tablet RxNorm: 718839 1 Tablet(s) Oral QD 10/10/2019 Inactive levothyroxine 137 mcg tablet RxNorm: 245836 1 Tablet(s) Oral QD 08/11/2019 Inactive propranolol 20 mg tablet RxNorm: 984126 TAKE 1 TABLET BY MOUTH TWICE DAILY 06/18/2019 12/14/2019 Inactive 06/18/2019 11:09:41 AM Cipro 250 mg tablet RxNorm: 040010 1 Tablet(s) Oral two times a day 04/17/2019 04/16/2019 Inactive Cipro 250 mg tablet RxNorm: 795408 1 Tablet(s) Oral two times a day 04/17/2019 04/24/2019 Inactive Macrobid 100 mg capsule RxNorm: 895693 1 Capsule(s) Oral two ti mes a day 04/15/2019 04/16/2019 Inactive metronidazole 500 mg tablet RxNorm: 558112 1 Tablet(s) Oral thr ee times a day 03/18/2019 03/28/2019 Inactive Bactrim DS 800 mg-160 mg tablet RxNorm: 962216 1 Tablet(s) Oral two times a day 03/18/2019 03/18/2019 Inactive Cipro 250 mg tablet RxNorm: 337521 1 Tablet(s) PO BID 01/26/201901/22 Inactive Flagyl 500 mg tablet RxNorm: 300309 1 Tablet(s) PO TID 01/26/201904/2019 Inactive prednisone 20 mg tablet RxNorm: 828098 1 Tablet(s) PO B ID for 4 days then 1 po daily for 4 days 01/08/2019 03/17/2019 Inactive doxycycline hyclate 100 mg capsule RxNorm: 4465428 1 Capsule(s) PO BID 01/08/2019 01/14/2019 Inactive doxycycline hyclate 100 mg capsule RxNorm: 3320675 1 Capsule(s) PO BID 01/08/2019 01/07/2019 Inactive propranolol 20 mg tablet RxNorm: 205760 1 Tablet(s) PO BID 12/24/1906/17/2019 Inactive Bactrim DS 800 mg-160 mg tablet RxNorm: 740100 1 Tablet (s) PO BID repeat urine culture 48 hours after antibiotics completed. 12/15/2018 12/14/2018 In active Bactrim DS 800 mg-160 mg tablet RxNorm: 095340 1 Tablet (s) PO BID repeat urine culture 48 hours after antibiotics completed. 12/15/2018 12/19/2018 In active levothyroxine 137 mcg tablet RxNorm: 415898 1 Tablet(s) PO QD 12/0906/06/2019 Inactive meclizine 25 mg tablet RxNorm: 654032 1 Tablet(s) PO TID for di zziness 10/30/2018 11/08/2018 Inactive doxycycline hyclate 100 mg tablet RxNorm: 3333236 1 Tablet(s) PO BI D 10/07/2018 10/16/2018 Inactive albuterol sulfate HFA 90 mcg/actuation aerosol inhaler RxNor m: 691445 2 Puff(s) INH Q4H as needed 10/07/2018 02/10/2020 Inactive chlorpheniramine 4 mg tablet RxNorm: 7751407 1 Tablet(s) PO QHS for allergies 10/07/2018 03/17/2019 Inactive Tessalon 200 mg capsule RxNorm: 742648 1 Capsule(s) PO TID 10/08/1910/26/2018 Inactive doxycycline hyclate 100 mg tablet RxNorm: 5973167 1 Tablet(s) PO BI D 10/07/2018 10/06/2018 Inactive Tessalon 200 mg capsule RxNorm: 108192 1 Capsule(s) PO TID 10/08/1910/06/2018 Inactive levothyroxine 137 mcg tablet RxNorm: 165893 1 Tablet(s) PO QD 08/0512/02/2018 Inactive propranolol 20 mg tablet RxNorm: 010384 1 Tablet(s) PO BID 06/23/2012/19/2018 Inactive chlorpheniramine 4 mg tablet RxNorm: 1983212 1 Tablet(s) PO QHS for allergies 06/23/2018 08/21/2018 Inactive levothyroxine 137 mcg tablet RxNorm: 507366 1 Tablet(s) PO QD 06/0308/01/2018 Inactive levothyroxine 137 mcg tablet RxNorm: 316551 1 Tablet(s) PO QD 06/0306/02/2018 Inactive Synthroid 150 mcg tablet RxNorm: 193308 1 Tablet(s) PO QD 04/03/2018 06/22/2018 Inactive Synthroid 150 mcg tablet RxNorm: 119552 1 Tablet(s) PO QD 04/03/2018 04/02/2018 Inactive propranolol 20 mg tablet RxNorm: 273354 1 Tablet(s) PO BID 03/17/20 18 06/14/2018 Inactive propranolol 20 mg tablet RxNorm: 958503 1 Tablet(s) PO BID 03/17/20 18 06/21/2020 Inactive Lancets,Ultra Thin RxNorm: Miscellaneous Use to test blood sugar daily and as needed (Dx: E11.65) 02/28/2018 05/09/2022 Inactive Contour Test Strips RxNorm: Miscellaneous Test b lood sugar daily and as needed (Dx: E11.65) 02/28/2018 05/09/2022 Inactive Contour Meter RxNorm: 1 Miscellaneous DX: E11.65 02/27/20182021 Inactive DX: E11.65 Synthroid 175 mcg tablet RxNorm: 694356 1 Tablet(s) PO QD 01/28/2018 04/02/2018 Inactive Synthroid 175 mcg tablet RxNorm: 451840 1 Tablet(s) PO QD 01/16/2018 04/02/2018 Inactive Medrol (Isaiah) 4 mg tablets in a dose pack RxNorm: 908136 Tablet(s) P O 10/16/2017 01/15/2018 Inactive cyclobenzaprine 7.5 mg tablet RxNorm: 147625 1/2-1 Tablet(s) PO TID as needed 10/16/2017 06/22/2018 Inactive pantoprazole 40 mg tablet,delayed release RxNorm: 195603 1 Tabl et(s) PO QD 08/21/2017 06/22/2018 Inactive Nexium 40 mg capsule,delayed release RxNorm: 058397 1 Capsule(s ) PO QD 08/20/2017 08/20/2017 Inactive doxycycline hyclate 100 mg capsule RxNorm: 0214506 1 Capsule(s) PO BID 08/13/2017 08/12/2017 Inactive doxycycline hyclate 100 mg capsule RxNorm: 9065548 1 Capsule(s) PO BID 08/13/2017 08/19/2017 Inactive Tessalon Perles 100 mg capsule RxNorm: 306315 1 Capsule(s) PO T ID as needed 07/29/2017 08/07/2017 Inactive prednisone 20 mg tablet RxNorm: 877154 1 Tablet(s) PO BID 07/25/2017 07/27/2017 Inactive albuterol sulfate HFA 90 mcg/actuation aerosol inhaler RxNor m: 693249 2 Puff(s) INH Q4H as needed 07/25/2017 10/06/2018 Inactive doxycycline hyclate 100 mg capsule RxNorm: 6916122 1 Capsule(s) PO BID 06/10/2017 06/19/2017 Inactive prednisone 20 mg tablet RxNorm: 294056 1 Tablet(s) PO T ID for 2 days then 1 po BID for 2 days then 1 daily for 3 days 06/10/2017 08/12/2017 Inactive fenofibrate micronized 134 mg capsule RxNorm: 227160 TAKE 1 CAP KIMI DAILY 06/03/2017 06/22/2018 Inactive Zithromax Z-Siaiah 250 mg tablet RxNorm: 766111 Tablet(s) PO Take as directed 05/28/2017 06/09/2017 Inactive prednisone 20 mg tablet RxNorm: 711042 2 Tablet(s) PO QD 05/28/2017 1 08/01/2016 Inactive Tessalon Perles 100 mg capsule RxNorm: 036328 1 Capsule(s) PO T ID as needed 05/28/2017 06/09/2017 Inactive Janumet XR 100 mg-1,000 mg tablet,extended release RxNorm: 1 392304 1 Tablet(s) PO QD 02/14/2017 06/22/2018 Inactive fluoxetine 40 mg capsule RxNorm: 337804 1 Capsule(s) PO QD 02/15/20 17 06/22/2018 Inactive Vitamin D2 50,000 unit capsule RxNorm: 803970 1 Capsule (s) PO TAKE 1 CAPSULE BY MOUTH TWICE WEEKLY 02/11/2017 07/10/2017 Inactive Generic For:* DRISDOL [id number] 02/03/2015 10:10:59 AM Janumet XR 100 mg-1,000 mg tablet,extended release RxNorm: 1 056251 1 Tablet(s) PO QD 09/24/2016 10/06/2018 Inactive Vitamin D2 50,000 unit capsule RxNorm: 517432 Capsule(s ) TAKE 1 CAPSULE BY MOUTH TWICE WEEKLY 09/11/2016 02/11/2017 Inactive Generic For:*DRI SDOL [id number] 02/03/2015 10:10:59 AM Pepcid 20 mg tablet RxNorm: 989825 Tablet(s) PO TAKE 1 TABLET BY MOUTH TWICE DAILY. 06/14/2016 06/13/2016 Inactive fluoxetine 40 mg capsule RxNorm: 409930 1 Capsule(s) PO QD 06/14/20 16 12/10/2016 Inactive loratadine 10 mg tablet RxNorm: 518954 1 Tablet(s) PO QD 1 Tabl et(s) PO BID 06/14/2016 04/03/2017 Inactive [AttnRPh: Saving ryan ly/adjudicate RxGRP:SG20 RxBIN:[id number] RxPCN: ID#:[id number]] Vitamin D2 50,000 unit capsule RxNorm: 294616 Capsule(s ) TAKE 1 CAPSULE BY MOUTH TWICE WEEKLY 06/14/2016 09/10/2016 Inactive Generic For:*VERN FREEDMAN [id number] 02/03/2015 10:10:59 AM Synthroid 175 mcg tablet RxNorm: 393879 1 Tablet(s) PO Saturday t hrough Saturday QD 06/05/2016 01/15/2018 Inactive Synthroid 150 mcg tablet RxNorm: 635008 1 Tablet(s) PO Sat and Sun 11/09/2015 06/04/2016 Inactive Synthroid 175 mcg tablet RxNorm: 626462 1 Tablet(s) PO Saturday t hrough Saturday11/09/2015 06/04/2016 Inactive Synthroid 150 mcg tablet RxNorm: 608474 1 Tablet(s) PO Sat and Sun , Th, Sat, Sun 11/09/2015 11/08/2015 Inactive Janumet XR 100 mg-1,000 mg tablet,extended release RxNorm: 1 577113 TAKE 1 TABLET DAILY 09/30/2015 09/24/2016 Inactive azithromycin 500 mg tablet RxNorm: 056353 1 Tablet(s) PO QD 016 07/25/2015 Inactive azithromycin 500 mg tablet RxNorm: 348453 1 Tablet(s) PO QD 016 08/01/2015 Inactive loratadine 10 mg tablet RxNorm: 078181 1 Tablet(s) PO BID 04/06/2015 06/14/2016 Inactive [AttnRPh: Saving apply/adjudicate RxGRP: SG20 RxBIN:[id number] RxPCN: ID#:[id number]] Synthroid 175 mcg tablet RxNorm: 236755 1 Tablet(s) PO M, W, F 10/0 10/201411/08/2015 Inactive Synthroid 150 mcg tablet RxNorm: 373980 1 Tablet(s) PO QD , T h, Sat, Sun 03/28/2015 11/08/2015 Inactive propranolol 20 mg tablet RxNorm: 171077 1 Tablet(s) PO BID 02/09/20 15 06/13/2016 Inactive fluoxetine 40 mg capsule RxNorm: 992045 1 Capsule(s) PO QD 02/09/20 15 06/14/2016 Inactive Vitamin D2 50,000 unit capsule RxNorm: 426329 TAKE 1 CA PSULE BY MOUTH TWICE WEEKLY 02/03/2015 06/14/2016 Inactive Generic For:*VERN FREEDMAN [id number] 02/03/2015 10:10:59 AM Lipitor 80 mg tablet RxNorm: 739444 1 Tablet(s) PO QD 01/24/201507/26 Inactive [AttnRPh: Saving apply/adjudicate RxGRP: SG20 RxBIN:[id number] RxPCN: ID#:[id number]] Bactrim DS 800 mg-160 mg tablet RxNorm: 562852 1 Tablet(s) PO BID 0 01/12/2015 01/11/2015 Inactive Synthroid 150 mcg tablet RxNorm: 263911 1 Tablet(s) PO QD 01/12/2015 03/27/2015 Inactive Bactrim DS 800 mg-160 mg tablet RxNorm: 348017 1 Tablet(s) PO BID 0 01/12/2015 01/18/2015 Inactive fluoxetine 40 mg capsule RxNorm: 502303 1 Capsule(s) PO QD 01/12/20 15 02/07/2015 Inactive Synthroid 137 mcg tablet RxNorm: 014542 1 Tablet(s) PO QD 12/08/2014 01/11/2015 Inactive [AttnRPh: Saving apply/adjudicate RxGRP: SG20 RxBIN:[id number] RxPCN: ID#:[id number]] Medrol (Isaiah) 4 mg tablets in a dose pack RxNorm: 688055 6 Tablet(s) PO QD --then as directed 11/24/2014 11/29/2014 Inactive albuterol sulfate HFA 90 mcg/actuation aerosol inhaler RxNor m: 618421 2 Puff(s) INH Q4H as needed 10/27/2014 07/24/2017 Inactive phenazopyridine 100 mg tablet RxNorm: 0670435 1 Tablet(s) PO TID 11/07/2015 Inactive [AttnRPh: Saving apply/adjud icate RxGRP:SG20 RxBIN:[id number] RxPCN:HT ID#:[id number]] Macrobid 100 mg capsule RxNorm: 416945 1 Capsule(s) PO BID 10/28/19 15 11/02/2014 Inactive [SAVINGS FOR NON-COVERED RUBIO GS -- BIN:[id number], PCN: ASPROD1, Group: XXXXX, ID# [id number], Questions: . THIS IS NOT INSURANCE.] prednisone 20 mg tablet RxNorm: 803481 1 Tablet(s) PO BID 10/27/2014 10/31/2014 Inactive AttnRPh: Saving apply/adjudicate RxGRP:S G20 RxBIN:[id number] RxPCN:HT ID#:[id number]: Saving apply/adjudicate RxGRP:SG20 RxBIN:[id number] RxPCN:HT ID#:[id number] Macrobid 100 mg capsule RxNorm: 319709 1 Capsule(s) PO BID 09/24/19 15 09/29/2014 Inactive [SAVINGS FOR NON-COVERED RUBIO GS -- BIN:462199, PCN: ASPROD1, Group: XXXXX, ID# [id number], Questions: . THIS IS NOT INSURANCE.] phenazopyridine 100 mg tablet RxNorm: 9140698 1 Tablet(s) PO TID 09/24/2014 Inactive [SAVINGS FOR NON-COVERED RUBIO GS -- BIN:638935, PCN: ASPROD1, Group: XXXXX, ID# [id number], Questions: . THIS IS NOT INSURANCE.] propranolol 60 mg tablet RxNorm: 529829 1 Tablet(s) PO QD 07/26/2014 02/07/2015 Inactive [SAVINGS FOR UNINSURED PATIENTS -- BIN:0 77558, PCN: ASPROD1, Group: [id number], ID# [id number], Process claim through [employer], for questions: . THIS IS NOT INSURANCE.] loratadine 10 mg tablet RxNorm: 980956 1 Tablet(s) PO BID 07/12/2014 07/11/2014 Inactive [AttnRPh: Saving apply/adjudicate RxGRP: SG20 RxBIN:[id number] RxPCN: ID#:[id number]] loratadine 10 mg tablet RxNorm: 997895 1 Tablet(s) PO BID 07/12/2014 10/06/2018 Inactive [SAVINGS FOR UNINSURED PATIENTS -- BIN:[id number], PCN: [id number], Group: [id number], ID# [id number], Process claim through [employer], for questions: . THIS IS NOT INSURANCE.] Vitamin D2 50,000 unit capsule RxNorm: 592628 1 Capsule (s) PO Take 1 capsule by mouth twice weekly 05/18/2014 02/02/2015 Inactive Pepcid 20 mg tablet RxNorm: 792623 TAKE 1 TABLET BY MOUTH TWICE DAILY. 05/18/2014 06/14/2016 Inactive Generic For:PEPCID 2 0MG 05/18/2014 11:28:51 AM Janumet XR 100 mg-1,000 mg tablet,extended release RxNorm: 1 873428 1 Tablet(s) PO QD 05/12/2014 08/09/2014 Inactive [SAVINGS FOR UNI NSURED PATIENTS -- BIN:[id number], PCN: [id number], Group: [id number], ID# [id number], Process claim through [employer], for questions: . THIS IS NOT INSURANCE.] Voltaren 1 % topical gel RxNorm: 287997 TOP BID 04/21/2014 5 Inactive Apply to affected areas 2-3 times daily as needed. Trilipix 135 mg capsule,delayed release RxNorm: 973790 1 Tablet(s) PO QD 1 Capsule(s) PO QD 04/21/2014 09/17/2014 Inactive may do 90 day f ill if desired Synthroid 137 mcg tablet RxNorm: 729944 1 Tablet(s) PO QD 03/30/2014 09/25/2014 Inactive [AttnRPh: Saving apply/adjudicate RxGRP: SG20 RxBIN:[id number] RxPCN: ID#:[id number]] Cipro 250 mg tablet RxNorm: 080629 1 Tablet(s) PO BID 03/30/201403/24 Inactive [SAVINGS FOR UNINSURED PATIENTS -- BIN:[id number], PCN: ASPROD1, Group: [id number], ID# [id number], Process claim through MedImpact, for questions: . THIS IS NOT INSURANCE.] Janumet XR 100 mg-1,000 mg tablet,extended release RxNorm: 1 476824 2 Tablet(s) PO QD 01/06/2014 01/05/2014 Inactive [SAVINGS FOR UNI NSURED PATIENTS -- BIN:[id number], PCN: ASPROD1, Group: [id number], ID# [id number], Process claim through MedImp[employer], for questions: . THIS IS NOT INSURANCE.] Janumet XR 100 mg-1,000 mg tablet,extended release RxNorm: 1 324453 1 Tablet(s) PO QD 01/06/2014 04/05/2014 Inactive [SAVINGS FOR UNI NSURED PATIENTS -- BIN:[id number], PCN: ASPROD1, Group: [id number], ID# [id number], Process claim through MedImp[employer], for questions: . THIS IS NOT INSURANCE.] propranolol 60 mg tablet RxNorm: 220750 1 Tablet(s) PO QD 12/28/2013 07/26/2014 Inactive [AttnRPh: Saving apply/adjudicate RxGRP: SG20 RxBIN:[id number] RxPCN: ID#:[id number]] Synthroid 150 mcg tablet RxNorm: 553848 1 Tablet(s) PO QD brand onl y 12/28/2013 04/20/2014 Inactive [AttnRPh: Saving apply/adjud icate RxGRP:SG20 RxBIN:[id number] RxPCN: ID#:[id number]] Vitamin D2 50,000 unit capsule RxNorm: 369552 1 Capsule (s) PO Take 1 capsule by mouth twice weekly 12/02/2013 05/17/2014 Inactive Lipitor 80 mg tablet RxNorm: 541721 1 Tablet(s) PO QD 11/24/201305/25 Inactive [AttnRPh: Saving apply/adjudicate RxGRP: SG20 RxBIN:[id number] RxPCN: ID#:[id number]] loratadine 10 mg tablet RxNorm: 441946 1 Tablet(s) PO BID 11/17/2013 07/12/2014 Inactive fluoxetine 20 mg capsule RxNorm: 290947 1 Capsule(s) PO QAM TAKE ONE CAPSULE BY MOUTH ONCE DAILY IN THE MORNING. 11/04/2013 01/10/2015 Inactive Generic For:PROZAC 20MG Generic For:PROZAC 20MG 06/23/2013 11:55:55 AM [AttnRPh: Saving apply/adjudicate RxGRP:SG20 RxBIN:[id number] RxPCN: ID#:[id number]] Vytorin 10 mg-80 mg tablet RxNorm: 3954500 Tablet(s) PO TAKE ONE TABLET BY MOUTH ONCE DAILY IN THE EVENING. 09/30/2013 11/23/2013 Inactive Trilipix 135 mg capsule,delayed release RxNorm: 075539 1 Capsul e(s) PO QD 07/15/2013 04/21/2014 Inactive may do 90 day fill i f desired Voltaren 1 % topical gel RxNorm: 031821 TOP BID 07/15/2013 4 Inactive Apply to affected areas 2-3 times daily as needed. Wellbutrin XL 300 mg 24 hr tablet, extended release RxNorm: 070847 1 Tablet(s) PO QAM 06/29/2013 04/03/2017 Inactive fluoxetine 20 mg capsule RxNorm: 729475 1 Capsule(s) PO QAM TAKE ONE CAPSULE BY MOUTH ONCE DAILY IN THE MORNING. 06/29/2013 11/04/2013 Inactive Generic For:PROZAC 20MG Generic For:PROZAC 20MG 06/23/2013 11:55:55 AM fluoxetine 20 mg capsule RxNorm: 992499 Capsule(s) PO T ARY ONE CAPSULE BY MOUTH ONCE DAILY IN THE MORNING. 06/23/2013 06/28/2013 Inactive Gener ic For:PROZAC 20MG Generic For:PROZAC 20MG 06/23/2013 11:55:55 AM Synthroid 150 mcg tablet RxNorm: 211698 1 Tablet(s) PO QD brand onl y 06/08/2013 12/04/2013 Inactive Vytorin 10 mg-80 mg tablet RxNorm: 7224044 1 Tablet(s) PO QD 201209/05/2013 Inactive TAKE 1 TABLET BY MOUTH DAILY propranolol 60 mg tablet RxNorm: 665493 1 Tablet(s) PO QD 06/08/2013 12/04/2013 Inactive Pepcid 20 mg tablet RxNorm: 928667 Tablet(s) PO TAKE 1 TABLET BY MOUTH TWICE DAILY. 06/04/2013 11/23/2013 Inactive fluoxetine 20 mg capsule RxNorm: 580847 1 Capsule(s) PO QAM 013 06/22/2013 Inactive Wellbutrin XL 300 mg 24 hr tablet, extended release RxNorm: 421875 1 Tablet(s) PO QAM 05/26/2013 06/28/2013 Inactive Wellbutrin XL 150 mg 24 hr tablet, extended release RxNorm: 089558 1 Tablet(s) PO QD 05/15/2013 05/25/2013 Inactive Wellbutrin XL 150 mg 24 hr tablet, extended release RxNorm: 674551 1 Tablet(s) PO QD 05/15/2013 05/14/2013 Inactive Kombiglyze XR 5 mg-500 mg tablet,extended release RxNorm: 10 46821 1 Tablet(s) PO QD 05/07/2013 05/15/2013 Inactive cefdinir 300 mg capsule RxNorm: 041532 2 Capsule(s) PO QD 04/23/2013 05/02/2013 Inactive AttnRPh: Saving apply/adjudicate RxGRP:S G20 RxBIN:[id number] RxPCN: ID#:[id number] Pepcid 20 mg tablet RxNorm: 790545 Tablet(s) PO TAKE 1 TABLET BY MOUTH TWICE DAILY. 04/17/2013 06/13/2016 Inactive Pepcid 20 mg tablet RxNorm: 218650 1 Tablet(s) PO BID 04/06/201305/24 Inactive Vytorin 10-80 10 mg-80 mg tablet RxNorm: 334619 1 Tablet(s) PO QD 0 02/19/2013 06/08/2013 Inactive TAKE 1 TABLET BY MOUTH DAILY loratadine 10 mg tablet RxNorm: 709519 1 Tablet(s) PO BID 01/23/2013 07/21/2013 Inactive Synthroid 150 mcg tablet RxNorm: 669175 1 Tablet(s) PO QD brand onl y 12/02/2012 06/08/2013 Inactive propranolol 60 mg tablet RxNorm: 873445 1 Tablet(s) PO QD 12/02/2012 06/08/2013 Inactive Trilipix 135 mg capsule,delayed release RxNorm: 072729 1 Capsul e(s) PO QD 12/02/2012 05/30/2013 Inactive may do 90 day fill i f desired Pepcid 20 mg tablet RxNorm: 268180 1 Tablet(s) PO BID 11/27/201203/24 Inactive Effexor XR 150 mg capsule,extended release RxNorm: 012868 1 Cap kimi(s) PO QD 11/24/2012 05/14/2013 Inactive Vytorin 10-80 10 mg-80 mg tablet RxNorm: 533051 1 Tablet(s) PO QD 0 11/24/2012 2013 Inactive TAKE 1 TABLET BY MOUTH DAILY Vytorin 10-80 10 mg-80 mg tablet RxNorm: 506226 1 Tablet(s) PO QD 0 11/21/2012 11/24/2012 Inactive TAKE 1 TABLET BY MOUTH DAILY Effexor XR 150 mg capsule,extended release RxNorm: 862237 1 Cap kimi(s) PO QD 11/21/2012 11/24/2012 Inactive loratadine 10 mg tablet RxNorm: 1810684 1 Tablet(s) PO BID 11/12/19 13 01/23/2013 Inactive Vytorin 10-80 10 mg-80 mg tablet RxNorm: 987580 Tablet( s) PO TAKE 1 TABLET BY MOUTH ONCE DAILY. 10/15/2012 11/21/2012 Inactive Vytorin 10-80 10 mg-80 mg tablet RxNorm: 436168 1 Tablet(s) PO QD 0 10/15/2012 11/20/2012 Inactive TAKE 1 TABLET BY MOUTH DAILY Effexor XR 150 mg capsule,extended release RxNorm: 434607 1 Cap kimi(s) PO QD 10/15/2012 11/20/2012 Inactive Effexor XR 150 mg capsule,extended release RxNorm: 133595 Capsule(s) PO TAKE 1 CAPSULE BY MOUTH ONCE DAILY 10/15/2012 11/21/2012 Inactive azithromycin 250 mg tablet RxNorm: 636890 2 Tablet(s) PO QD 013 09/10/2012 Inactive Culturelle 10 billion cell capsule RxNorm: 848268 1 Cap kimi(s) PO BID for diarrhea maintenance 09/03/2012 10/02/2012 Inactive Medrol (Isaiah) 4 mg tablets in a dose pack RxNorm: 666040 Tablet(s) PO as directed 09/03/2012 07/11/2011 Active as directed Culturelle 10 billion cell capsule RxNorm: 743630 1 Capsule(s) PO BID 07/23/2012 08/21/2012 Inactive Vitamin D2 50,000 unit capsule RxNorm: 635092 Capsule(s ) PO TAKE 1 CAPSULE EVERY DAY SATURDAY THRU Saturday07/09/2012 08/20/2013 Inactive Vitamin D2 50,000 unit capsule RxNorm: 2776178 Capsule(s ) PO TAKE 1 CAPSULE EVERY DAY SATURDAY THRU Saturday07/07/2012 07/08/2012 Inactive Vitamin D2 50,000 unit capsule RxNorm: 5478228 Capsule(s ) PO TAKE 1 CAPSULE EVERY DAY SATURDAY THRU Saturday07/07/2012 07/06/2012 Inactive Vitamin D2 50,000 unit capsule RxNorm: 7924269 Capsule(s ) PO TAKE 1 CAPSULE EVERY DAY SATURDAY THRU Saturday06/27/2012 07/06/2012 Inactive Synthroid 150 mcg tablet RxNorm: 523943 1 Tablet(s) PO QD brand onl y 06/09/2012 12/02/2012 Inactive metformin 1,000 mg tablet RxNorm: 577609 1 Tablet(s) PO BID rep laces 500mg dose 05/20/2012 11/10/2012 Inactive propranolol 60 mg tablet RxNorm: 503230 1 Tablet(s) PO QD 04/23/2012 12/02/2012 Inactive Effexor XR 150 mg capsule,extended release RxNorm: 700284 1 Cap kimi(s) PO QD 04/04/2012 09/30/2012 Inactive Zyrtec 10 mg tablet RxNorm: 9275312 1 Tablet(s) PO QD 04/04/201203/24 Inactive Trilipix 135 mg capsule,delayed release RxNorm: 537949 1 Capsul e(s) PO QD 03/19/2012 12/02/2012 Inactive may do 90 day fill i f desired Vytorin 10-80 10 mg-80 mg tablet RxNorm: 531183 1 Tablet(s) PO QD 0 01/31/2012 07/28/2012 Inactive TAKE 1 TABLET BY MOUTH DAILY Voltaren 1 % topical gel RxNorm: 279254 TOP BID 01/25/2012 4 Inactive Apply to affected areas 2-3 times daily as needed. Synthroid 150 mcg tablet RxNorm: 278721 1 Tablet(s) PO QD brand onl y 01/02/2012 06/09/2012 Inactive metformin ER 1,000 mg 24 hr Tab Ctrl Rel RxNorm: 479402 1 Table t(s) PO QD 01/02/2012 05/19/2012 Inactive metformin ER 500 mg 24 hr Tab RxNorm: 663934 Tablet(s) PO 12/21/2011 01/01/2012 Inactive TAKE 1 TABLET BY MOUTH ONCE DAILY. Voltaren 1 % Topical Gel RxNorm: 654359 TOP BID 11/28/2011 2 Inactive Apply to affected areas 2-3 times daily as needed. propranolol 60 mg tablet RxNorm: 344758 1 Tablet(s) PO QD 10/17/2011 04/23/2012 Inactive Effexor XR 150 mg capsule,extended release RxNorm: 351467 1 Cap kimi(s) PO QD 09/13/2011 04/04/2012 Inactive Medrol (Isaiah) 4 mg tablets in a dose pack RxNorm: 286233 Tablet(s) PO as directed 09/04/2011 07/11/2011 Active as directed doxycycline hyclate 100 mg Tab RxNorm: 6863778 1 Tablet(s) PO BID 0 09/04/2011 09/13/2011 Inactive doxycycline monohydrate 100 mg Tab RxNorm: 8048987 1 Tablet(s) P O BID 07/25/2011 08/03/2011 Inactive prednisone 10 mg Tab RxNorm: 111699 1 Tablet(s) PO TID 07/25/201112/2011 Inactive Synthroid 150 mcg Tab RxNorm: 614380 1 Tablet(s) PO QD brand only 0 07/12/2011 01/02/2012 Inactive Vytorin 10-80 10 mg-80 mg Tab RxNorm: 753098 1 Tablet(s) PO QD 05/2601/31/2012 Inactive TAKE 1 TABLET BY MOUTH DAILY Vitamin D2 50,000 unit capsule RxNorm: 5573215 1 Capsule(s) PO Q D M-F 05/15/2011 06/26/2012 Inactive TAKE 1 CAPSULE BY MO [facility] DAILY SATURDAY THROUGH FRIDAYS Synthroid 150 mcg Tab RxNorm: 123802 1 Tablet(s) PO QD brand only 1 07/09/2010 07/11/2011 Inactive doxycycline monohydrate 100 mg Tab RxNorm: 2358960 1 Tablet(s) P O BID 04/25/2011 05/04/2011 Inactive Trilipix 135 mg capsule,delayed release RxNorm: 434947 1 Capsul e(s) PO QD 04/23/2011 03/19/2012 Inactive cefdinir 300 mg Cap RxNorm: 012061 1 Capsule(s) PO BID 04/04/2011 Inactive propranolol 60 mg Tab RxNorm: 797207 1 Tablet(s) PO QD 03/26/2011 Inactive Ultram 50 mg Tab RxNorm: 343732 1-2 Tablet(s) PO QID 03/22/201103/21 Active prn pain metformin ER 500 mg 24 hr Tab RxNorm: 610258 1 Tablet(s) PO QD 06/201006/21/2011 Inactive Synthroid 150 mcg Tab RxNorm: 744848 1 Tablet(s) PO QD 02/22/201112/2010 Inactive Vytorin 10-80 10 mg-80 mg Tab RxNorm: 420675 1 Tablet(s) PO QD 01/2303/13/2011 Inactive TAKE 1 TABLET BY MOUTH DAILY Trilipix 135 mg Cap RxNorm: 903498 1 Capsule(s) PO QD 01/10/201103/26 Inactive Effexor XR 150 mg 24 hr Cap RxNorm: 557171 1 Capsule(s) PO QD 01/0908/06/2011 Inactive Vitamin D 50,000 unit Cap RxNorm: 0030658 Capsule(s) PO 12/20/2010 Inactive TAKE 1 CAPSULE BY MOUTH DAILY SATURDAY THR Fridays Septra DS 800 mg-160 mg Tab RxNorm: 144288 1 Tablet(s) PO BID 12/0712/16/2010 Inactive mupirocin 2 % Ointment RxNorm: 944581 1 Application TOP BID Apply to affected area twice daily 12/07/2010 12/13/2010 Inactive Trilipix 135 mg Cap RxNorm: 704576 1 Capsule(s) PO QD 10/16/201003/26 Inactive Synthroid 150 mcg Tab RxNorm: 090192 1 Tablet(s) PO QD 10/09/201006/2010 Inactive metformin ER 500 mg 24 hr Tab RxNorm: 894428 1 Tablet(s) PO QD 09/2202/22/2011 Inactive Nexium 40 mg Cap RxNorm: 398710 1 Capsule(s) PO QD 10/05/2010 019 Inactive Vytorin 10-80 10 mg-80 mg Tab RxNorm: 083746 1 Tablet(s) PO QD 09/201002/12/2011 Inactive propranolol 60 mg Tab RxNorm: 301589 1 Tablet(s) PO QD 09/18/201008/2010 Inactive Synthroid 125 mcg Tab RxNorm: 553051 1 Tablet(s) PO QD 08/07/2010 Inactive Synthroid 125 mcg Tab RxNorm: 154272 1 Tablet(s) PO QD 08/07/2010 Inactive Voltaren 1 % Topical Gel RxNorm: 943480 TOP BID Apply t o affected areas 2-3 times daily as needed. 08/01/2010 11/28/2011 Inactive Voltaren 1 % Topical Gel RxNorm: 893833 TOP BID Apply t o affected areas 2-3 times daily as needed. 07/04/2010 07/31/2010 Inactive Advair Diskus 250 mcg-50 mcg/dose for Inhalation RxNorm: 135 9859 1 Puff(s) INH Q12H 07/04/2010 07/11/2011 Inactive Effexor XR 150 mg 24 hr Cap RxNorm: 204644 1 Capsule(s) PO QD 06/0801/03/2011 Inactive Synthroid 100 mcg Tab RxNorm: 574668 1 Tablet(s) PO QD 06/06/2010 Inactive Vitamin D 50,000 unit Cap RxNorm: 6089915 1 Capsule(s) PO QD M-F 05/15/2011 Inactive Synthroid 150 mcg Tab RxNorm: 790599 1 Tablet(s) PO 05/25/20102010 Inactive Vytorin 10-80 10 mg-80 mg Tab RxNorm: 879300 1 Tablet(s) PO QD 04/2509/25/2010 Inactive Trilipix 135 mg Cap RxNorm: 278503 1 Capsule(s) PO QD 04/17/201009/23 Inactive propranolol 60 mg Tab RxNorm: 463235 1 Tablet(s) PO QD 01/09/2010 Inactive Advair Diskus 250 mcg-50 mcg/dose for Inhalation RxNorm: 135 9859 1 Puff(s) INH Q12H 12/26/2009 07/04/2010 Inactive Advair Diskus 250 mcg-50 mcg/Dose for Inhalation RxNorm: 135 9859 1 Puff(s) INH Q12H 11/26/2009 12/25/2009 Inactive Synthroid 200 mcg Tab RxNorm: 182574 1 Tablet(s) PO QD 11/24/2009 Inactive Effexor XR 150 mg 24 hr Cap RxNorm: 398245 1 Capsule(s) PO QD 10/2705/24/2010 Inactive Lisinopril 10 mg Tab RxNorm: 665473 1 Tablet(s) PO QD 10/17/200909/23 Inactive Propranolol 60 mg Tab RxNorm: 305463 1 Tablet(s) PO QD 10/17/2009 Inactive Septra DS 160 mg-800 mg Tab RxNorm: 380744 1 Tablet(s) PO BID 10/0410/08/2009 Inactive Mupirocin 2 % Ointment RxNorm: 309109 TOP Q6-8H 10/04/2009 10/10/2009 Inactive Voltaren 1 % Topical Gel RxNorm: 510152 TOP BID Apply t o affected areas 2-3 times daily as needed. 09/21/2009 03/19/2010 Inactive Trilipix 135 mg Cap RxNorm: 163994 1 Capsule(s) PO QD 09/20/200902/23 Inactive Nexium 40 mg Cap RxNorm: 953922 1 Capsule(s) PO QD 09/19/2009 010 Inactive Tylenol Arthritis 650 mg Tab RxNorm: 7900888 2 Tablet(s) PO BID 09/21 Active Vitamin D3 5,000 unit tablet RxNorm: 776803 1 Tablet(s) PO QD 019 Active Synthroid 150 mcg tablet RxNorm: 808833 1 Tablet(s) PO QD 01/12/2015 01/11/2015 Inactive Synthroid 150 mcg tablet RxNorm: 398589 1 Tablet(s) PO Saturday and Saturday01/16/2018 01/15/2018 Inactive Vitamin D 2,000 unit Cap RxNorm: 1 Capsule(s) PO QD 01/30/201002/2010 Inactive Flexeril 5 mg tablet RxNorm: 671149 06/25 to 1 Tablet(s) PO TID as needed for muscle spasm 06/10/2017 06/09/2017 Inactive Medrol (Isaiah) 4 mg Tabs in a Dose Pack RxNorm: 172029 Tablet(s) PO 0 09/04/2011 07/11/2011 Inactive as directed fenofibrate micronized 134 mg capsule RxNorm: 740787 1 Capsule( s) PO QD 06/03/2017 06/02/2017 Inactive Vitamin D2 50,000 unit capsule RxNorm: 541994 Capsule(s ) PO Take 1 capsule by mouth twice weekly 12/02/2013 12/01/2013 Inactive prednisone 20 mg tablet RxNorm: 547651 1 Tablet(s) PO BID 03/30/2014 03/29/2014 Inactive AttnRPh: Saving apply/adjudicate RxGRP:S G20 RxBIN:[id number] RxPCN:HT ID#:[id number]: Saving apply/adjudicate RxGRP:SG20 RxBIN:[id number] RxPCN:HT ID#:[id number] Soma 350 mg tablet RxNorm: 082181 1 Tablet(s) PO TID prn spasm 01/2310/08/2010 Inactive Lancets,Ultra Thin RxNorm: Miscellaneous Use to test blood sugar daily and as needed (Dx: E11.65) 02/28/2018 02/27/2018 Inactive pantoprazole 40 mg tablet,delayed release RxNorm: 304836 1 Tabl et(s) PO QD 08/21/2017 08/20/2017 Inactive Janumet XR 100 mg-1,000 mg tablet,extended release RxNorm: 1 385799 2 Tablet(s) PO QD 01/06/2014 01/05/2014 Inactive Contour Meter RxNorm: miscellaneous 02/27/2018 02/26/2018 Inactive Synthroid 200 mcg Tab RxNorm: 776984 1 Tablet(s) PO QD 11/24/200907/2009 Inactive Kombiglyze XR 5 mg-500 mg tablet,extended release RxNorm: 10 24271 1 Tablet(s) PO QD 05/07/2013 05/06/2013 Inactive Zithromax Z-Isaiah 250 mg tablet RxNorm: 940731 Tablet(s) PO as di rected 05/14/2013 05/13/2013 Inactive AttnRPh: Saving appl y/adjudicate RxGRP:SG20 RxBIN:[id number] RxPCN: ID#:[id number] Fish Oil 1,000 mg capsule RxNorm: 3 Capsule(s) PO QD 04/04/2017 Inactive Lasix Oral RxNorm: Oral 03/30/2014 03/29/2014 Inactive loratadine 10 mg tablet RxNorm: 512575 1 Tablet(s) PO QD 08/20/2017 0 08/19/2017 Inactive Vitamin D 5,000 unit Tab RxNorm: 1 Tablet(s) PO twice a week 1 08/07/2009 06/05/2010 Inactive permethrin 5 % Topical Cream RxNorm: 456899 TOP Use as directed 02/03/2013 Inactive Gabapentin 100 mg Tab RxNorm: 528236 1 Tablet(s) PO BID 04/12/2010 Inactive Voltaren 1 % topical gel RxNorm: 676793 TOP as needed 06/23/201805/26 Inactive Gabapentin 300 mg Cap RxNorm: 852407 1 Capsule(s) PO BID 07/12/2011 0 07/11/2011 Inactive Contour Test Strips RxNorm: Miscellaneous Test blood sug ar daily (Dx: E11.65) 02/28/2018 02/27/2018 Inactive Promethazine 25 mg Tab RxNorm: 616296 1 Tablet(s) PO Q6 -8H As needed for nausea and vomiting. 10/09/2010 10/08/2010 Inactive propranolol 20 mg tablet RxNorm: 113703 1 Tablet(s) PO BID 03/17/20 18 03/16/2018 Inactive Vitamin D 50,000 unit Cap RxNorm: 1541977 Capsule(s) PO 2 weekly 06/05/2010 Inactive Synthroid 175 mcg Tab RxNorm: 309519 1 Tablet(s) PO QD 07/12/2011 Inactive triamcinolone acetonide 0.1 % Ointment RxNorm: 7012779 T OP TID apply three times a day (sparingly) as needed for itching 04/04/2017 04/03/2017 Inactive Ultram 50 mg Tab RxNorm: 646140 1-2 Tablet(s) PO QID prn pain 03/2203/22/2011 Inactive Topamax 100 mg Tab RxNorm: 200860 1 Tablet(s) PO BID 10/04/200910/03 Inactive Vitamin D3 1000 units Capsule RxNorm: 3 Capsule(s) PO QD 0 06/05/2010 Inactive Singulair 10 mg tablet RxNorm: 690893 1 Tablet(s) PO QD 06/23/2018 Inactive Medication [...] Code Result Date S ervice Location SARS-CoV2 4204238 SARS-CoV2 PCR Detected 07/08/2021 [facility] GFR CALC 0948878 GFR Non Afr Amr >60 mL/min 01/26/2019 Un known GFR CALC 8008282 GFR Afr Amr >60 mL/min 01/26/2019 Unknow n COMPLETE BLOOD COUNT 9991530 WBC 7.0 10e9/L 01/27/20 19 Unknown COMPLETE BLOOD COUNT [id number] RBC 4.52 10e12/L 2018 Unknown COMPLETE BLOOD COUNT 7453085 HEMOGLOBIN 14.0 g/dL 01/27/20 19 Unknown COMPLETE BLOOD COUNT 5869122 HEMATOCRIT 42.6 % 01/27/20 19 Unknown COMPLETE BLOOD COUNT [id number] MCV 94.2 fL 9 Unknown COMPLETE BLOOD COUNT 8800227 MCH 31.0 pg 9 Unknown COMPLETE BLOOD COUNT 3059479 MCHC 32.9 g/dL 9 Unknown COMPLETE BLOOD COUNT 3655019 PLATELET COUNT 272 10e9/L 10/2018 Unknown COMPLETE BLOOD COUNT 0051350 Mean Plt Volume 10.4 fL 10/2018 Unknown COMPLETE BLOOD COUNT 3846542 Neut Auto 53.9 % 9 Unknown COMPLETE BLOOD COUNT 3632066 Lymph Auto 33.8 % 01/27/20 19 Unknown COMPLETE BLOOD COUNT 5006852 [place] Auto 9.1 % 9 Unknown COMPLETE BLOOD COUNT 3528822 RDW 13.2 % 9 Unknown COMPLETE BLOOD COUNT 2883389 Eos Auto 2.3 % 9 Unknown COMPLETE BLOOD COUNT 1579109 Baso Auto 0.9 % 9 Unknown COMPLETE BLOOD COUNT 0072208 Neutrophil Abs 3.77 10e9/L Unknown COMPLETE BLOOD COUNT 6234496 Lymphocyte Abs 2.37 10e9/L Unknown COMPLETE BLOOD COUNT 5472555 Monocyte Abs 0.64 10e9/L 10/2018 Unknown COMPLETE BLOOD COUNT 9792196 Eosinophil Abs 0.16 10e9/L Unknown COMPLETE BLOOD COUNT 3889765 RDW-SD 44.2 fL 9 Unknown COMPLETE BLOOD COUNT [id number] Basophil Abs 0.06 10e9/L 10/2018 Unknown COMPREHENSIVE METABOLIC 77527 AST 15 U/L 2018 Unknown COMPREHENSIVE METABOLIC 36249 ALT 18 U/L 2018 Unknown COMPREHENSIVE METABOLIC 96329 BUN 10 mg/dL 2018 Unknown COMPREHENSIVE METABOLIC 38196 ALBUMIN 4.1 g/dL 2018 Unknown COMPREHENSIVE METABOLIC 54529 CHLORIDE 100 mmol/L 01/26 Unknown COMPREHENSIVE METABOLIC 82104 Bili Total 0.4 mg/dL 01/26 Unknown COMPREHENSIVE METABOLIC 62150 ALK PHOS 57 U/L 2018 Unknown COMPREHENSIVE METABOLIC 15850 SODIUM 136 mmol/L 01/26 Unknown COMPREHENSIVE METABOLIC 38896 CREATININE 0.71 mg/dL 10/2018 Unknown COMPREHENSIVE METABOLIC 77466 CALCIUM 9.3 mg/dL 2018 Unknown COMPREHENSIVE METABOLIC 76913 POTASSIUM 4.4 mmol/L 01/26 Unknown COMPREHENSIVE METABOLIC 75779 Total Protein 6.7 g/dL Unknown COMPREHENSIVE METABOLIC 19495 Glucose 88 mg/dL 2018 Unknown COMPREHENSIVE METABOLIC 12132 Bicarbonate 27 mmol/L 10/2018 Unknown COMPREHENSIVE METABOLIC 65799 AGAP 9 mmol/L 2018 Unknown Procedures Procedure Codes Date RML URINE CULTURE/ COLONY COUNT CPT-4: 24218 06/29/19 23 THER/PROPH/DIAG INJ SC/IM CPT-4: 99402 04/18/2022 KETOROLAC TROMETHAMINE INJ CPT-4: J1885 04/18/2022 FLU 64 + VACC AIIV4 NO PRSRV 0.5ML IM CPT-4: 28366 ADMIN INFLUENZA VIRUS VAC CPT-4: G0008 04/05/2022 PPPS, subseq visit CPT-4: G0439 02/06/2022 DEXAMETHASONE SODIUM PHOS CPT-4: J1100 11/09/2021 THER/PROPH/DIAG INJ SC/IM CPT-4: 66283 11/09/2021 TRIAMCINOLONE ACET INJ NOS CPT-4: J3301 11/09/2021 CEFTRIAXONE SODIUM INJECTION CPT-4: J0696 10/30/2021 THER/PROPH/DIAG INJ SC/IM CPT-4: 07057 10/30/2021 INFLUENZA ASSAY W/OPTIC CPT-4: 30548 10/30/2021 THER/PROPH/DIAG INJ SC/IM CPT-4: 82783 09/05/2021 TRIAMCINOLONE ACET INJ NOS CPT-4: J3301 09/05/2021 INFLUENZA ASSAY W/OPTIC CPT-4: 82514 07/04/2021 SARS-CoV2 CPT-4: 5883990 07/04/2021 FLU VACC PRSV FREE INC ANTIG 65 AND OLDER CPT-4: 23389 03/29/2021 FLU VACC PRSV FREE INC ANTIG 65 AND OLDER CPT-4: 91366 03/29/2021 ADMIN INFLUENZA VIRUS VAC CPT-4: G0008 03/29/2021 DRAINAGE OF SKIN ABSCESS CPT-4: 78228 02/08/2021 PPPS, subseq visit CPT-4: G0439 01/03/2021 OCCULT BLOOD FECES CPT-4: 15550 07/13/2020 RML URINE CULTURE/ COLONY COUNT CPT-4: 52856 05/17/20 URINALYSIS NONAUTO W/O SCOPE CPT-4: 48322 05/17/2020 CEFTRIAXONE SODIUM INJECTION CPT-4: J0696 03/07/2020 THER/PROPH/DIAG INJ SC/IM CPT-4: 69860 03/07/2020 THER/PROPH/DIAG INJ SC/IM CPT-4: 07988 03/07/2020 METHYLPREDNISOLONE INJECTION CPT-4: J2930 03/07/2020 PPPS, subseq visit CPT-4: G0439 12/21/2019 RML URINE CULTURE/ COLONY COUNT CPT-4: 53274 09/11/19 CEFTRIAXONE SODIUM INJECTION CPT-4: J0696 09/08/2019 THER/PROPH/DIAG INJ SC/IM CPT-4: 79954 09/08/2019 THER/PROPH/DIAG INJ SC/IM CPT-4: 98575 09/07/2019 CEFTRIAXONE SODIUM INJECTION CPT-4: J0696 09/07/2019 THER/PROPH/DIAG INJ SC/IM CPT-4: 59654 09/07/2019 URINALYSIS NONAUTO W/O SCOPE CPT-4: 97466 09/02/2019 RML URINE CULTURE/ COLONY COUNT CPT-4: 01212 09/02/19 FLU VACC PRSV FREE INC ANTIG 65 AND OLDER CPT-4: 77377 04/15/2019 URINALYSIS NONAUTO W/O SCOPE CPT-4: 12659 04/15/2019 RML URINE CULTURE/ COLONY COUNT CPT-4: 74690 04/15/20 ADMIN INFLUENZA VIRUS VAC CPT-4: G0008 04/15/2019 FLU VACC PRSV FREE INC ANTIG 65 AND OLDER CPT-4: 89501 04/15/2019 THER/PROPH/DIAG INJ SC/IM CPT-4: 03762 04/07/2019 TRIAMCINOLONE ACET INJ NOS CPT-4: J3301 04/07/2019 DEXAMETHASONE SODIUM PHOS CPT-4: J1100 04/07/2019 URINALYSIS NONAUTO W/O SCOPE CPT-4: 67521 03/18/2019 RML URINE CULTURE/ COLONY COUNT CPT-4: 96553 03/18/20 19 ROUTINE VENIPUNCTURE CPT-4: 27405 01/26/2019 RML COMPREHEN METABOLIC PANEL CPT-4: 02145 01/26/2019 RML COMPLETE CBC W/AUTO DIFF WBC CPT-4: 37500 019 RML URINE CULTURE/ COLONY COUNT CPT-4: 42250 01/27/20 19 URINALYSIS NONAUTO W/O SCOPE CPT-4: 88904 01/26/2019 THER/PROPH/DIAG INJ SC/IM CPT-4: 80463 01/08/2019 TRIAMCINOLONE ACET INJ NOS CPT-4: J3301 01/08/2019 THER/PROPH/DIAG INJ SC/IM CPT-4: 22028 01/06/2019 METHYLPREDNISOLONE INJECTION CPT-4: J2930 01/06/2019 AIRWAY INHALATION TREATMENT CPT-4: 52793 01/06/2019 RML URINE CULTURE/ COLONY COUNT CPT-4: 75646 01/07/20 19 PPPS, subseq visit CPT-4: G0439 12/11/2018 URINALYSIS NONAUTO W/O SCOPE CPT-4: 06004 12/11/2018 RML URINE CULTURE/ COLONY COUNT CPT-4: 57145 12/12/19 19 CULTURE OTHR SPECIMN AEROBIC CPT-4: 74469 12/11/2018 OCCULT BLOOD FECES CPT-4: 48010 12/11/2018 THER/PROPH/DIAG INJ SC/IM CPT-4: 39396 10/07/2018 TRIAMCINOLONE ACET INJ NOS CPT-4: J3301 10/07/2018 DEXAMETHASONE SODIUM PHOS CPT-4: J1100 10/07/2018 THER/PROPH/DIAG INJ SC/IM CPT-4: 21482 10/16/2017 TRIAMCINOLONE ACET INJ NOS CPT-4: J3301 10/16/2017 THER/PROPH/DIAG INJ SC/IM CPT-4: 47106 10/16/2017 KETOROLAC TROMETHAMINE INJ CPT-4: J1885 10/16/2017 INFLUENZA ASSAY W/OPTIC CPT-4: 11506 07/25/2017 FLU VACC PRSV FREE INC ANTIG 65 AND OLDER CPT-4: 01428 04/04/2017 PNEUMOCOCCAL VACC 23 DANAY IM CPT-4: 62416 04/04/2017 PPPS, subseq visit CPT-4: G0439 04/04/2017 ADMIN INFLUENZA VIRUS VAC CPT-4: G0008 04/04/2017 ADMIN PNEUMOCOCCAL VACCINE CPT-4: G0009 04/04/2017 URINALYSIS NONAUTO W/O SCOPE CPT-4: 31522 06/05/2016 FLU VACC PRSV FREE INC ANTIG 65 AND OLDER CPT-4: 98928 05/01/2016 ADMIN INFLUENZA VIRUS VAC CPT-4: G0008 05/01/2016 URINALYSIS NONAUTO W/O SCOPE CPT-4: 79500 11/08/2015 URINALYSIS NONAUTO W/O SCOPE CPT-4: 41340 03/28/2015 ADMIN INFLUENZA VIRUS VAC CPT-4: G0008 03/28/2015 FLU VACC PRSV FREE INC ANTIG 65 AND OLDER CPT-4: 64141 03/28/2015 PRESCRIP TRANSMIT VIA ERX SY CPT-4: G8553 03/28/2015 PNEUMOCOCCAL VACC 13 DANAY IM CPT-4: 57300 02/08/2015 ADMIN PNEUMOCOCCAL VACCINE CPT-4: G0009 02/08/2015 PRESCRIP TRANSMIT VIA ERX SY CPT-4: G8553 02/08/2015 RML URINE CULTURE/ COLONY COUNT CPT-4: 11487 01/12/20 15 URINALYSIS NONAUTO W/O SCOPE CPT-4: 88491 01/11/2015 PRESCRIP TRANSMIT VIA ERX SY CPT-4: G8553 01/11/2015 PRESCRIP TRANSMIT VIA ERX SY CPT-4: G8553 11/24/2014 URINALYSIS NONAUTO W/O SCOPE CPT-4: 25793 10/27/2014 RML URINE CULTURE/ COLONY COUNT CPT-4: 96103 10/28/19 15 PRESCRIP TRANSMIT VIA ERX SY CPT-4: G8553 10/27/2014 CEFTRIAXONE SODIUM INJECTION CPT-4: J0696 09/23/2014 THER/PROPH/DIAG INJ SC/IM CPT-4: [id number] 09/23/2014 URINALYSIS NONAUTO W/O SCOPE CPT-4: 34449 09/23/2014 RML URINE CULTURE/ COLONY COUNT CPT-4: 72403 09/24/19 15 PRESCRIP TRANSMIT VIA ERX SY CPT-4: G8553 09/23/2014 URINALYSIS NONAUTO W/O SCOPE CPT-4: 99361 03/30/2014 RML URINE CULTURE/ COLONY COUNT CPT-4: 75833 03/30/20 14 PRESCRIP TRANSMIT VIA ERX SY CPT-4: G8553 03/30/2014 PRESCRIP TRANSMIT VIA ERX SY CPT-4: G8553 11/24/2013 PRESCRIP TRANSMIT VIA ERX SY CPT-4: G8553 06/29/2013 PRESCRIP TRANSMIT VIA ERX SY CPT-4: G8553 05/26/2013 PRESCRIP TRANSMIT VIA ERX SY CPT-4: G8553 04/23/2013 THER/PROPH/DIAG INJ SC/IM CPT-4: 10541 03/05/2013 KETOROLAC TROMETHAMINE INJ CPT-4: J1885 03/05/2013 PRESCRIP TRANSMIT VIA ERX SY CPT-4: G8553 11/27/2012 PRESCRIP TRANSMIT VIA ERX SY CPT-4: G8553 11/11/2012 PRESCRIP TRANSMIT VIA ERX SY CPT-4: G8553 09/03/2012 PRESCRIP TRANSMIT VIA ERX SY CPT-4: G8553 07/23/2012 PRESCRIP TRANSMIT VIA ERX SY CPT-4: G8553 05/20/2012 PRESCRIP TRANSMIT VIA ERX SY CPT-4: G8553 04/04/2012 DESTRUCT PREMALG LESION (Cryosurgery) CPT-4: 50112 PRESCRIP TRANSMIT VIA ERX SY CPT-4: G8553 01/02/2012 PRESCRIP TRANSMIT VIA ERX SY CPT-4: G8553 09/04/2011 URINALYSIS NONAUTO W/O SCOPE CPT-4: 36341 07/31/2011 PRESCRIP TRANSMIT VIA ERX SY CPT-4: G8553 07/12/2011 PRESCRIP TRANSMIT VIA ERX SY CPT-4: G8553 05/09/2011 THER/PROPH/DIAG INJ SC/IM CPT-4: 21365 05/02/2011 KETOROLAC TROMETHAMINE INJ CPT-4: J1885 05/02/2011 PRESCRIP TRANSMIT VIA ERX SY CPT-4: G8553 04/25/2011 CUR TOBACCO NON-USER CPT-4: G8457 04/04/2011 PRESCRIP TRANSMIT VIA ERX SY CPT-4: G8553 04/04/2011 DRAIN/INJECT JOINT/BURSA CPT-4: 72670 03/01/2011 METHYLPREDNISOLONE 40 MG INJ CPT-4: J1030 03/01/2011 TRIAMCINOLONE ACET INJ NOS CPT-4: J3301 03/01/2011 DRAIN/INJECT JOINT/BURSA CPT-4: 88914 01/04/2011 METHYLPREDNISOLONE 40 MG INJ CPT-4: J1030 01/04/2011 TRIAMCINOLONE ACET INJ NOS CPT-4: J3301 01/04/2011 PRESCRIP TRANSMIT VIA ERX SY CPT-4: G8553 12/07/2010 PRESCRIP TRANSMIT VIA ERX SY CPT-4: G8553 10/09/2010 PRESCRIP TRANSMIT VIA ERX SY CPT-4: G8553 06/06/2010 DRAIN/INJECT JOINT/BURSA CPT-4: 70703 04/12/2010 TRIAMCINOLONE ACET INJ NOS CPT-4: J3301 04/12/2010 METHYLPREDNISOLONE 80 MG INJ CPT-4: J1040 04/12/2010 PRESCRIP TRANSMIT VIA ERX SY CPT-4: G8553 03/20/2010 THER/PROPH/DIAG INJ SC/IM CPT-4: 42985 01/30/2010 KETOROLAC TROMETHAMINE INJ CPT-4: J1885 01/30/2010 PRESCRIP TRANSMIT VIA ERX SY CPT-4: G8553 01/30/2010 DRAIN/INJECT JOINT/BURSA CPT-4: 19428 10/26/2009 TRIAMCINOLONE ACET INJ NOS CPT-4: J3301 10/26/2009 METHYLPREDNISOLONE 80 MG INJ CPT-4: J1040 10/26/2009 DRAINAGE OF SKIN ABSCESS CPT-4: 95515 10/04/2009 Vital Signs Date Vital 08/07/2022 Blood Pressure 1: 126/74 Code: 8480-6 Heart Rate 1: 73 bpm Respiratory Rate: 20 bpm SpO2: 97% Temperature: 36.2 (C) / 97.1 (F) We ight: 222 lbs Code: 87301-2 06/29/2022 Blood Pressure 1: 132/73 Code: 8480-6 BMI: 36.7 Code: 13072-0 Heart Rate 1: 74 bpm Height: 5'6" Code: 8302-2 SpO2: 96% Temperature: 3 6.4 (C) / 97.6 (F) Weight: 226 lbs Code: 17067-7 05/28/2022 Blood Pressure 1: 129/78 Code: 8480-6 BMI: 37.7 Code: 63050-4 Heart Rate 1: 72 bpm Height: 5'6" Code: 8302-2 SpO2: 95% Temperature: 3 6.2 (C) / 97.1 (F) Weight: 232 lbs Code: 47522-2 05/10/2022 Blood Pressure 1: 133/75 Code: 8480-6 BMI: 38.3 Code: 43531-7 Heart Rate 1: 68 bpm Height: 5'6" Code: 8302-2 SpO2: 98% Temperature: 3 6.2 (C) / 97.1 (F) Weight: 236 lbs Code: 73997-3 04/18/2022 Blood Pressure 1: 118/70 Code: 8480-6 Heart Rate 1: 86 bpm Respiratory Rate: 20 bpm SpO2: 96% Temperature: 36.6 (C) / 97.8 (F) We ight: 238 lbs Code: 56610-9 02/15/2022 Blood Pressure 1: 120/82 Code: 8480-6 Heart Rate 1: 88 bpm Respiratory Rate: 20 bpm SpO2: 98% Temperature: 36.1 (C) / 97.0 (F) We ight: 237 lbs Code: 00541-5 02/06/2022 Blood Pressure 1: 124/80 Code: 8480-6 BMI: 39.4 Code: 67767-8 Heart Rate 1: 76 bpm Height: 5'6" Code: 8302-2 Respiratory Rate: 20 bpm SpO2: 98% Temperature: 36.6 (C) / 97.9 (F) Weight: 242 lbs Code: 13834-4 02/01/2022 Blood Pressure 1: 144/100 Code: 8480-6 Heart Rat e 1: 108 bpm Respiratory Rate: 22 bpm SpO2: 96% Temperature: 36.4 (C) / 97.5 (F) 11/29/2021 Blood Pressure 1: 128/80 Code: 8480-6 Heart Rate 1: 56 bpm Respiratory Rate: 20 bpm SpO2: 97% Temperature: 36.7 (C) / 98.1 (F) We ight: 242 lbs Code: 67140-9 11/22/2021 Blood Pressure 1: 118/80 Code: 8480-6 Heart Rate 1: 84 bpm Respiratory Rate: 20 bpm SpO2: 99% Temperature: 36.3 (C) / 97.4 (F) 11/21/2021 Blood Pressure 1: 132/80 Code: 8480-6 Heart Rate 1: 98 bpm Respiratory Rate: 20 bpm SpO2: 99% Weight: 238 lbs Code: 09268 -7 11/09/2021 Blood Pressure 1: 136/86 Code: 8480-6 Heart Rate 1: 68 bpm Respiratory Rate: 20 bpm SpO2: 95% Temperature: 36.4 (C) / 97.5 (F) We ight: 244 lbs Code: 69628-8 10/31/2021 Blood Pressure 1: 128/80 Code: 8480-6 Heart Rate 1: 80 bpm Respiratory Rate: 28 bpm SpO2: 93% Temperature: 38.0 (C) / 100. 4 (F) 10/30/2021 Blood Pressure 1: 136/82 Code: 8480-6 Heart Rate 1: 120 bpm Respiratory Rate: 24 bpm SpO2: 95% Temperature: 38.0 (C) / 100. 4 (F) 09/05/2021 Blood Pressure 1: 118/84 Code: 8480-6 BMI: 38.5 Code: 47361-8 Heart Rate 1: 72 bpm Height: 5'7" Code: 8302-2 Respiratory Rate: 20 bpm SpO2: 95% Temperature: 36.3 (C) / 97.4 (F) Weight: 246 lbs Code: 93654-6 08/24/2021 Blood Pressure 1: 132/84 Code: 8480-6 Heart Rate 1: 76 bpm Respiratory Rate: 19 bpm SpO2: 98% Temperature: 36.7 (C) / 98.1 (F) We ight: Code: 03340-4 03/01/2021 Blood Pressure 1: 90/52 Code: 8480-6 Heart Rate 1: 66 bpm Respiratory Rate: 22 bpm SpO2: 97% 02/08/2021 Blood Pressure 1: 132/75 Code: 8480-6 Heart Rate 1: 74 bpm Respiratory Rate: 18 bpm SpO2: 98% Temperature: 36.3 (C) / 97.3 (F) We ight: 247 lbs Code: 60468-3 01/19/2021 Blood Pressure 1: 126/76 Code: 8480-6 Heart Rate 1: 76 bpm Respiratory Rate: 20 bpm SpO2: 98% Temperature: 37.1 (C) / 98.8 (F) We ight: 244 lbs Code: 10453-3 01/03/2021 Blood Pressure 1: 124/64 Code: 8480-6 BMI: 38.5 Code: 88205-3 Heart Rate 1: 76 bpm Height: 5'7" Code: 8302-2 Respiratory Rate: 20 bpm SpO2: 96% Temperature: 36.4 (C) / 97.6 (F) Weight: 246 lbs Code: 56824-5 11/29/2020 Blood Pressure 1: 119/68 Code: 8480-6 Heart Rate 1: 73 bpm Respiratory Rate: 20 bpm SpO2: 95% Temperature: 36.1 (C) / 96.9 (F) We ight: 245 lbs Code: 59922-1 09/29/2020 Blood Pressure 1: 136/79 Code: 8480-6 Heart Rate 1: 67 bpm Respiratory Rate: 15 bpm SpO2: 98% Temperature: 36.2 (C) / 97.1 (F) We ight: 237 lbs Code: 31147-8 09/19/2020 Blood Pressure 1: 135/82 Code: 8480-6 Heart Rate 1: 76 bpm Respiratory Rate: 17 bpm SpO2: 96% Temperature: 36.6 (C) / 97.8 (F) We ight: 238 lbs Code: 94484-0 08/10/2020 Blood Pressure 1: 126/82 Code: 8480-6 Heart Rate 1: 60 bpm Respiratory Rate: 20 bpm SpO2: 96% Temperature: 36.3 (C) / 97.3 (F) We ight: 238 lbs Code: 70759-1 08/01/2020 Temperature: 36.6 (C) / 97.8 (F) 07/13/2020 Blood Pressure 1: 132/80 Code: 8480-6 Heart Rate 1: 76 bpm Respiratory Rate: 20 bpm SpO2: 97% Temperature: 36.2 (C) / 97.2 (F) We ight: 228 lbs Code: 81782-1 07/05/2020 Temperature: 35.9 (C) / 96.7 (F) 06/22/2020 Blood Pressure 1: 134/82 Code: 8480-6 Heart Rate 1: 60 bpm Respiratory Rate: 20 bpm SpO2: 96% Temperature: 36.4 (C) / 97.6 (F) We ight: 235 lbs Code: 71613-4 05/17/2020 Blood Pressure 1: 141/72 Code: 8480-6 Heart Rate 1: 78 bpm Respiratory Rate: 16 bpm SpO2: 98% Temperature: 36.3 (C) / 97.3 (F) We ight: 232 lbs Code: 99368-4 03/14/2020 Blood Pressure 1: 126/92 Code: 8480-6 Heart Rate 1: 72 bpm Respiratory Rate: 22 bpm SpO2: 96% Temperature: 36.3 (C) / 97.4 (F) We ight: 225 lbs Code: 27587-1 03/07/2020 Blood Pressure 1: 124/86 Code: 8480-6 Heart Rate 1: 72 bpm Respiratory Rate: 24 bpm SpO2: 93% Temperature: 36.2 (C) / 97.1 (F) We ight: 227 lbs Code: 89355-1 12/21/2019 Blood Pressure 1: 114/72 Code: 8480-6 BMI: 36.2 Code: 97178-3 Heart Rate 1: 60 bpm Height: 5'7" Code: 8302-2 Respiratory Rate: 20 bpm SpO2: 97% Temperature: 36.7 (C) / 98.1 (F) Weight: 231 lbs Code: 86278-9 09/02/2019 Blood Pressure 1: 138/85 Code: 8480-6 Heart Rate 1: 76 bpm Respiratory Rate: 20 bpm SpO2: 96% Temperature: 36.3 (C) / 97.3 (F) We ight: 226 lbs Code: 35068-4 07/09/2019 Blood Pressure 1: 123/63 Code: 8480-6 BMI: 34.9 Code: 70768-5 Heart Rate 1: 64 bpm Height: 5'7" Code: 8302-2 Respiratory Rate: 17 bpm SpO2: 97% Temperature: 37.0 (C) / 98.6 (F) Weight: 223 lbs Code: 34740-0 04/15/2019 Blood Pressure 1: 110/82 Code: 8480-6 Heart Rate 1: 66 bpm SpO2: 98% Temperature: 36.1 (C) / 96.9 (F) Weight: 223 lbs Code: 92614-5 04/07/2019 Blood Pressure 1: 132/80 Code: 8480-6 Heart Rate 1: 68 bpm Temperature: 36.9 (C) / 98.4 (F) Weight: 222 lbs Code: 58001-9 03/25/2019 Blood Pressure 1: 108/70 Code: 8480-6 Heart Rate 1: 64 bpm Respiratory Rate: 20 bpm SpO2: 96% Temperature: 36.2 (C) / 97.2 (F) We ight: 221 lbs Code: 50396-1 03/18/2019 Blood Pressure 1: 138/82 Code: 8480-6 Heart Rate 1: 74 bpm SpO2: 99% Temperature: 36.1 (C) / 96.9 (F) Weight: 223 lbs Code: 05418-3 01/26/2019 Blood Pressure 1: 138/90 Code: 8480-6 Heart Rate 1: 68 bpm SpO2: 96% Temperature: 35.9 (C) / 96.7 (F) Weight: 227 lbs Code: 38226-5 01/08/2019 Blood Pressure 1: 134/78 Code: 8480-6 BMI: 36.8 Code: 74281-9 Heart Rate 1: 76 bpm Height: 5'7" Code: 8302-2 SpO2: 93% Temperature: 3 6.4 (C) / 97.6 (F) Weight: 235 lbs Code: 40878-5 01/06/2019 Blood Pressure 1: 116/80 Code: 8480-6 Heart Rate 1: 72 bpm Respiratory Rate: 20 bpm SpO2: 98% Temperature: 36.5 (C) / 97.7 (F) We ight: 232 lbs Code: 09584-9 12/11/2018 Blood Pressure 1: 120/82 Code: 8480-6 BMI: 36.2 Code: 55718-2 Heart Rate 1: 67 bpm Height: 5'7" Code: 8302-2 Respiratory Rate: 18 bpm SpO2: 96% Temperature: 35.9 (C) / 96.7 (F) Weight: 231 lbs Code: 93972-1 10/30/2018 Blood Pressure 1: 126/82 Code: 8480-6 Heart Rate 1: 80 bpm Respiratory Rate: 20 bpm SpO2: 96% Temperature: 36.8 (C) / 98.3 (F) We ight: 228 lbs Code: 24043-2 10/07/2018 Blood Pressure 1: 130/90 Code: 8480-6 Heart Rate 1: 76 bpm Respiratory Rate: 24 bpm SpO2: 97% Temperature: 36.0 (C) / 96.8 (F) We ight: 229 lbs Code: 86874-3 06/23/2018 Blood Pressure 1: 132/80 Code: 8480-6 Heart Rate 1: 72 bpm Respiratory Rate: 20 bpm SpO2: 98% Temperature: 36.7 (C) / 98.0 (F) We ight: 233 lbs Code: 24293-6 01/16/2018 Blood Pressure 1: 116/82 Code: 8480-6 Heart Rate 1: 72 bpm Respiratory Rate: 20 bpm SpO2: 96% Temperature: 36.9 (C) / 98.5 (F) We ight: 230 lbs Code: 63516-9 10/16/2017 Blood Pressure 1: 116/74 Code: 8480-6 BMI: 35.1 Code: 01186-5 Heart Rate 1: 76 bpm Height: 5'7" Code: 8302-2 Respiratory Rate: 20 bpm SpO2: 98% Temperature: 36.7 (C) / 98.1 (F) Weight: 224 lbs Code: 61700-1 09/12/2017 Blood Pressure 1: 124/78 Code: 8480-6 BMI: 34.6 Code: 42151-9 Heart Rate 1: 84 bpm Height: 5'7" Code: 8302-2 Respiratory Rate: 20 bpm SpO2: 95% Temperature: 36.6 (C) / 97.8 (F) Weight: 221 lbs Code: 16490-8 08/20/2017 Blood Pressure 1: 126/78 Code: 8480-6 Heart Rate 1: 92 bpm Height: 5'7" Code: 8302-2 Respiratory Rate: 20 bpm SpO2: 96% Temperature: 36 .9 (C) / 98.5 (F) 08/13/2017 Blood Pressure 1: 124/80 Code: 8480-6 BMI: 34.8 Code: 98577-0 Heart Rate 1: 80 bpm Height: 5'7" Code: 8302-2 Respiratory Rate: 20 bpm SpO2: 96% Temperature: 36.7 (C) / 98.0 (F) Weight: 222 lbs Code: 49363-4 07/29/2017 Blood Pressure 1: 114/70 Code: 8480-6 BMI: 34.5 Code: 62995-0 Heart Rate 1: 76 bpm Height: 5'7" Code: 8302-2 Respiratory Rate: 20 bpm SpO2: 97% Temperature: 36.9 (C) / 98.4 (F) Weight: 220 lbs Code: 27380-9 07/25/2017 Blood Pressure 1: 142/76 Code: 8480-6 BMI: 34.9 Code: 86560-3 Heart Rate 1: 92 bpm Height: 5'7" Code: 8302-2 Respiratory Rate: 18 bpm SpO2: 96% Temperature: 36.7 (C) / 98.1 (F) Weight: 223 lbs Code: 19632-9 06/10/2017 Blood Pressure 1: 136/82 Code: 8480-6 BMI: 34.3 Code: 08674-1 Heart Rate 1: 68 bpm Height: 5'7" Code: 8302-2 Respiratory Rate: 20 bpm SpO2: 96% Temperature: 36.7 (C) / 98.0 (F) Weight: 219 lbs Code: 39533-9 05/28/2017 Blood Pressure 1: 136/70 Code: 8480-6 BMI: 34.1 Code: 26276-5 Heart Rate 1: 84 bpm Height: 5'7" Code: 8302-2 Respiratory Rate: 20 bpm SpO2: 95% Temperature: 35.9 (C) / 96.6 (F) Weight: 218 lbs Code: 18149-4 04/04/2017 Blood Pressure 1: 122/78 Code: 8480-6 BMI: 33.4 Code: 94313-3 Heart Rate 1: 68 bpm Height: 5'7" Code: 8302-2 Respiratory Rate: 20 bpm SpO2: 96% Temperature: 36.7 (C) / 98.0 (F) Weight: 213 lbs Code: 43316-6 11/28/2016 Blood Pressure 1: 114/82 Code: 8480-6 BMI: 33.7 Code: 57021-7 Heart Rate 1: 72 bpm Height: 5'7" Code: 8302-2 Respiratory Rate: 20 bpm SpO2: 98% Temperature: 36.4 (C) / 97.6 (F) Weight: 215 lbs Code: 12523-5 06/05/2016 Blood Pressure 1: 104/68 Code: 8480-6 BMI: 33.7 Code: 49984-7 Heart Rate 1: 68 bpm Height: 5'7" Code: 8302-2 Respiratory Rate: 20 bpm SpO2: 96% Temperature: 36.8 (C) / 98.2 (F) Weight: 215 lbs Code: 63577-6 11/08/2015 Blood Pressure 1: 122/70 Code: 8480-6 BMI: 33.8 Code: 76865-2 Heart Rate 1: 80 bpm Height: 5'7" Code: 8302-2 Respiratory Rate: 20 bpm Temperatu re: 36.8 (C) / 98.2 (F) Weight: 216 lbs Code: 64917-5 07/19/2015 Blood Pressure 1: 122/70 Code: 8480-6 BMI: 33.0 Code: 38013-5 Heart Rate 1: 80 bpm Height: 5'7" Code: 8302-2 Respiratory Rate: 18 bpm Temperatu re: 35.9 (C) / 96.6 (F) Weight: 211 lbs Code: 73252-0 03/28/2015 Blood Pressure 1: 124/70 Code: 8480-6 BMI: 31.8 Code: 16651-8 Heart Rate 1: 72 bpm Height: 5'7" Code: 8302-2 Respiratory Rate: 20 bpm Temperatu re: 36.8 (C) / 98.2 (F) Weight: 203 lbs Code: 26526-1 02/08/2015 Blood Pressure 1: 98/58 Code: 8480-6 BMI: 32.1 C ode: 46133-0 Heart Rate 1: 84 bpm Height: 5'7" Code: 8302-2 Respiratory Rate: 20 bpm Temperatu re: 36.7 (C) / 98.0 (F) Weight: 205 lbs Code: 68398-4 01/11/2015 Blood Pressure 1: 118/78 Code: 8480-6 BMI: 32.1 Code: 97631-1 Heart Rate 1: 84 bpm Height: 5'7" Code: 8302-2 Respiratory Rate: 20 bpm Temperatu re: 36.6 (C) / 97.9 (F) Weight: 205 lbs Code: 62635-8 11/24/2014 Blood Pressure 1: 124/80 Code: 8480-6 BMI: 32.0 Code: 98929-9 Heart Rate 1: 76 bpm Height: 5'7" Code: 8302-2 Respiratory Rate: 20 bpm Temperatu re: 36.2 (C) / 97.1 (F) Weight: 204 lbs Code: 04413-8 11/19/2014 Blood Pressure 1: 132/78 Code: 8480-6 BMI: 32.7 Code: 86516-2 Heart Rate 1: 68 bpm Height: 5'7" Code: 8302-2 Respiratory Rate: 20 bpm SpO2: 98% Temperature: 36.7 (C) / 98.0 (F) Weight: 209 lbs Code: 85196-0 10/27/2014 Blood Pressure 1: 118/76 Code: 8480-6 BMI: 32.6 Code: 44464-1 Heart Rate 1: 64 bpm Height: 5'7" Code: 8302-2 Respiratory Rate: 20 bpm Temperatu re: 36.7 (C) / 98.0 (F) Weight: 208 lbs Code: 29919-0 09/23/2014 Blood Pressure 1: 118/68 Code: 8480-6 BMI: 34.3 Code: 59920-6 Heart Rate 1: 78 bpm Height: 5'7" Code: 8302-2 Respiratory Rate: 22 bpm Temperatu re: 36.4 (C) / 97.6 (F) Weight: 219 lbs Code: 44677-4 07/28/2014 Blood Pressure 1: 126/80 Code: 8480-6 BMI: 33.5 Code: 74403-7 Heart Rate 1: 76 bpm Height: 5'7" Code: 8302-2 Respiratory Rate: 20 bpm Temperatu re: 36.4 (C) / 97.6 (F) Weight: 214 lbs Code: 39186-9 03/30/2014 Blood Pressure 1: 128/80 Code: 8480-6 BMI: 35.2 Code: 77473-7 Heart Rate 1: 88 bpm Height: 5'7" Code: 8302-2 Respiratory Rate: 20 bpm Temperatu re: 36.4 (C) / 97.6 (F) Weight: 225 lbs Code: 18442-3 11/24/2013 Blood Pressure 1: 124/82 Code: 8480-6 BMI: 35.6 Code: 99922-3 Heart Rate 1: 80 bpm Height: 5'7" Code: 8302-2 Respiratory Rate: 22 bpm Temperatu re: 36.2 (C) / 97.1 (F) Weight: 227 lbs Code: 96479-2 08/25/2013 Blood Pressure 1: 128/80 Code: 8480-6 BMI: 37.4 Code: 42050-0 Heart Rate 1: 76 bpm Height: 5'7" Code: 8302-2 Respiratory Rate: 20 bpm Temperatu re: 36.6 (C) / 97.9 (F) Weight: 239 lbs Code: 47340-8 06/29/2013 Blood Pressure 1: 106/78 Code: 8480-6 BMI: 38.1 Code: 95523-4 Heart Rate 1: 80 bpm Height: 5'7" Code: 8302-2 Respiratory Rate: 20 bpm Temperatu re: 36.6 (C) / 97.9 (F) Weight: 243 lbs Code: 81847-7 05/26/2013 Blood Pressure 1: 122/80 Code: 8480-6 BMI: 39.3 Code: 42090-2 Heart Rate 1: 80 bpm Height: 5'7" Code: 8302-2 Respiratory Rate: 20 bpm Temperatu re: 36.9 (C) / 98.4 (F) Weight: 251 lbs Code: 03447-5 05/06/2013 Blood Pressure 1: 128/78 Code: 8480-6 BMI: 39.2 Code: 94988-4 Heart Rate 1: 76 bpm Height: 5'7" Code: 8302-2 Respiratory Rate: 22 bpm Temperatu re: 35.8 (C) / 96.4 (F) Weight: 250 lbs Code: 78224-2 04/23/2013 Blood Pressure 1: 132/92 Code: 8480-6 BMI: 39.6 Code: 23702-6 Heart Rate 1: 88 bpm Height: 5'7" Code: 8302-2 Respiratory Rate: 28 bpm SpO2: 97% Temperature: 36.5 (C) / 97.7 (F) Weight: 253 lbs Code: 97747-7 03/31/2013 Blood Pressure 1: 122/80 Code: 8480-6 BMI: 39.0 Code: 36496-2 Heart Rate 1: 84 bpm Height: 5'7" Code: 8302-2 Respiratory Rate: 20 bpm Temperatu re: 36.6 (C) / 97.8 (F) Weight: 249 lbs Code: 30997-1 03/05/2013 Blood Pressure 1: 120/80 Code: 8480-6 BMI: 39.2 Code: 50906-5 Heart Rate 1: 60 bpm Height: 5'7" Code: 8302-2 Respiratory Rate: 22 bpm Temperatu re: 35.9 (C) / 96.6 (F) Weight: 250 lbs Code: 37782-7 02/04/2013 Blood Pressure 1: 124/80 Code: 8480-6 BMI: 38.4 Code: 75864-1 Heart Rate 1: 80 bpm Height: 5'7" Code: 8302-2 Respiratory Rate: 20 bpm Temperatu re: 36.4 (C) / 97.6 (F) Weight: 245 lbs Code: 09572-4 11/27/2012 Blood Pressure 1: 127/83 Code: 8480-6 Te mperature: 36.1 (C) / 96.9 (F) Weight: 243 lbs 2 oz Code: 42619-8 11/11/2012 Blood Pressure 1: 126/82 Code: 8480-6 BMI: 37.4 Code: 04878-9 Heart Rate 1: 80 bpm Height: 5'7" Code: 8302-2 Respiratory Rate: 20 bpm Temperatu re: 36.8 (C) / 98.2 (F) Weight: 239 lbs Code: 12074-3 10/20/2012 Blood Pressure 1: 114/80 Code: 8480-6 BMI: 37.1 Code: 79194-9 Heart Rate 1: 104 bpm Height: 5'7" Code: 8302-2 Respiratory Rate: 20 bpm Temperatu re: 36.9 (C) / 98.4 (F) Weight: 237 lbs Code: 45399-1 09/03/2012 Blood Pressure 1: 118/72 Code: 8480-6 BMI: 37.3 Code: 00114-1 Heart Rate 1: 70 bpm Height: 5'7" Code: 8302-2 Temperature: 35.6 (C) / 96.0 (F) Weight: 238 lbs Code: 66243-1 07/23/2012 Blood Pressure 1: 124/78 Code: 8480-6 BMI: 36.8 Code: 90180-4 Heart Rate 1: 68 bpm Height: 5'7" Code: 8302-2 Temperature: 35.6 (C) / 96.0 (F) Weight: 235 lbs Code: 57061-5 05/20/2012 Blood Pressure 1: 112/70 Code: 8480-6 BMI: 37.1 Code: 00658-5 Heart Rate 1: 76 bpm Height: 5'7" Code: 8302-2 Respiratory Rate: 20 bpm Temperatu re: 36.7 (C) / 98.1 (F) Weight: 237 lbs Code: 21330-3 04/04/2012 Blood Pressure 1: 110/64 Code: 8480-6 BMI: 37.1 Code: 78153-8 Heart Rate 1: 68 bpm Height: 5'7" Code: 8302-2 Temperature: 36.1 (C) / 97.0 (F) Weight: 237 lbs Code: 78338-9 02/20/2012 Blood Pressure 1: 136/78 Code: 8480-6 BMI: 37.1 Code: 44123-3 Heart Rate 1: 72 bpm Height: 5'7" Code: 8302-2 Respiratory Rate: 20 bpm Temperatu re: 36.7 (C) / 98.0 (F) Weight: 237 lbs Code: 87503-9 01/02/2012 Blood Pressure 1: 122/70 Code: 8480-6 BMI: 37.1 Code: 61375-6 Heart Rate 1: 76 bpm Height: 5'7" Code: 8302-2 Respiratory Rate: 20 bpm Temperatu re: 37.0 (C) / 98.6 (F) Weight: 237 lbs Code: 93478-8 09/04/2011 Blood Pressure 1: 120/84 Code: 8480-6 BMI: 35.4 Code: 53337-4 Heart Rate 1: 68 bpm Height: 5'7" Code: 8302-2 Temperature: 30.0 (C) / 86.0 (F) Weight: 226 lbs Code: 30702-9 08/14/2011 Blood Pressure 1: 120/82 Code: 8480-6 BMI: 36.5 Code: 71728-6 Heart Rate 1: 80 bpm Height: 5'7" Code: 8302-2 Temperature: 36.6 (C) / 97.8 (F) Weight: 233 lbs Code: 47237-9 07/31/2011 Blood Pressure 1: 138/86 Code: 8480-6 BMI: 37.0 Code: 97362-2 Heart Rate 1: 94 bpm Height: 5'7" Code: 8302-2 Temperature: 35.4 (C) / 95.7 (F) Weight: 236 lbs Code: 98069-1 07/25/2011 Blood Pressure 1: 128/80 Code: 8480-6 BMI: 37.0 Code: 50490-5 Heart Rate 1: 80 bpm Height: 5'7" Code: 8302-2 Temperature: 35.6 (C) / 96.0 (F) Weight: 236 lbs Code: 23169-1 07/12/2011 Blood Pressure 1: 132/80 Code: 8480-6 BMI: 37.0 Code: 93945-0 Heart Rate 1: 96 bpm Height: 5'7" Code: 8302-2 Respiratory Rate: 20 bpm Temperatu re: 36.3 (C) / 97.3 (F) Weight: 236 lbs Code: 26669-4 05/09/2011 Blood Pressure 1: 106/78 Code: 8480-6 BMI: 36.6 Code: 17069-2 Heart Rate 1: 72 bpm Height: 5'7" Code: 8302-2 Respiratory Rate: 20 bpm Temperatu re: 36.4 (C) / 97.6 (F) Weight: 234 lbs Code: 98069-4 05/02/2011 Blood Pressure 1: 96/72 Code: 8480-6 BMI: 36.6 C ode: 33795-3 Heart Rate 1: 108 bpm Height: 5'7" Code: 8302-2 Respiratory Rate: 24 bpm Temperatu re: 36.7 (C) / 98.0 (F) Weight: 234 lbs Code: 87108-4 04/25/2011 Blood Pressure 1: 120/72 Code: 8480-6 BMI: 36.5 Code: 80278-4 Heart Rate 1: 70 bpm Height: 5'7" Code: 8302-2 Temperature: 36.7 (C) / 98.0 (F) Weight: 233 lbs Code: 42037-8 04/04/2011 Blood Pressure 1: 126/92 Code: 8480-6 BMI: 36.5 Code: 48343-8 Heart Rate 1: 84 bpm Height: 5'7" Code: 8302-2 Respiratory Rate: 20 bpm Temperatu re: 36.2 (C) / 97.2 (F) Weight: 233 lbs Code: 85879-6 03/01/2011 Blood Pressure 1: 132/78 Code: 8480-6 Heart Rate 1: 88 bpm Temperature: 36.8 (C) / 98.2 (F) Weight: 231 lbs Code: 79090-1 01/04/2011 Blood Pressure 1: 122/78 Code: 8480-6 BMI: 37.0 Code: 38051-6 Heart Rate 1: 80 bpm Height: 5'7" Code: 8302-2 Temperature: 37.0 (C) / 98.6 (F) Weight: 236 lbs Code: 83155-0 12/07/2010 Blood Pressure 1: 132/92 Code: 8480-6 Heart Rate 1: 98 bpm Temperature: 36.2 (C) / 97.2 (F) Weight: 237 lbs Code: 08381-4 10/09/2010 Blood Pressure 1: 128/80 Code: 8480-6 Heart Rate 1: 72 bpm Temperature: 36.5 (C) / 97.7 (F) Weight: 244 lbs Code: 71708-1 08/07/2010 Blood Pressure 1: 114/80 Code: 8480-6 Heart Rate 1: 72 bpm Temperature: 36.2 (C) / 97.1 (F) Weight: 245 lbs Code: 57269-1 06/06/2010 Blood Pressure 1: 132/86 Code: 8480-6 Heart Rate 1: 80 bpm Temperature: 36.8 (C) / 98.2 (F) Weight: 242 lbs Code: 21234-2 04/12/2010 Blood Pressure 1: 126/82 Code: 8480-6 Heart Rate 1: 72 bpm Temperature: 36.8 (C) / 98.2 (F) Weight: 237 lbs Code: 56712-8 03/20/2010 Blood Pressure 1: 124/78 Code: 8480-6 Heart Rate 1: 76 bpm Temperature: 36.1 (C) / 97.0 (F) Weight: 239 lbs Code: 83293-9 01/30/2010 Blood Pressure 1: 118/80 Code: 8480-6 Heart Rate 1: 84 bpm Temperature: 37.1 (C) / 98.7 (F) Weight: 239 lbs Code: 26983-1 01/09/2010 Blood Pressure 1: 120/72 Code: 8480-6 BMI: 36.8 Code: 86847-7 Heart Rate 1: 80 bpm Height: 5'7" Code: 8302-2 Temperature: 36.1 (C) / 97.0 (F) Weight: 235 lbs Code: 51448-1 11/07/2009 Blood Pressure 1: 140/36 Cod e: 8480-6 10/26/2009 Blood Pressure 1: 126/82 Code: 8480-6 BMI: 36.9 Code: 31565-5 Heart Rate 1: 84 bpm Height: 5'7" Code: 8302-2 Temperature: 36.5 (C) / 97.7 (F) Weight: 234 lbs Code: 72106-9 10/17/2009 Blood Pressure 1: 140/88 Code: 8480-6 BMI: 36.3 Code: 31330-6 Heart Rate 1: 88 bpm Height: 5'7" Code: 8302-2 Temperature: 36.7 (C) / 98.0 (F) Weight: 232 lbs Code: 37170-9 10/04/2009 Blood Pressure 1: 140/90 Code: 8480-6 BMI: 36.3 Code: 74683-8 Heart Rate 1: 84 bpm Height: 5'7" Code: 8302-2 Temperature: 36.4 (C) / 97.6 (F) Weight: 232 lbs Code: 53720-5 09/21/2009 Blood Pressure 1: 136/82 Code: 8480-6 BMI: 36.3 Code: 52422-8 Heart Rate 1: 88 bpm Height: 5'7" Code: 8302-2 Temperature: 35.8 (C) / 96.4 (F) Weight: 232 lbs Code: 20038-8 Functional Status No Functional Status data Reason [...] Encounter Performer Location Location Address Codes Date ([id number]) OFFICE/OUTPATIENT VISIT EST Diagnosis: Hypothyroidism[ICD10: E03.9] Diagnosis: Essential (primary) hypertension[ICD10: I10] Diagnosis: Mixed hyperlipidemia[ICD10: E78.2] Diagnosis: Stress at home[ICD10: F43.9] Jayna VANESSA [address] [address] CPT-4: 76051 08/07/2022 ([id number]) OFFICE/OUTPATIENT VISIT EST Diagnosis: Acute cystitis[ICD10: N30.00] Marlene Bel BR[address] [address] CPT-4: 10574 06/29/2022 ([id number]) OFFICE/OUTPATIENT VISIT EST Diagnosis: Depression[ICD10: F32.A] Diagnosis: Hypothyroidism[ICD10: E03.9] Jayna VANESSA [address] [address] CPT-4: 10897 05/28/2022 ([id number]) OFFICE/OUTPATIENT VISIT EST Diagnosis: Depression[ICD10: F32.A] Diagnosis: Fatigue[ICD10: R53.83] Diagnosis: Hypothyroidism[ICD10: E03.9] Diagnosis: Hyperglycemia[ICD10: R73.9] Jayna GUTIERREZ S. 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] Jayna VANESSA DO [address] [address] CPT-4: [address] 02/15/2022 ([id number]) Annual depression screening, 15 minutes Diagnosis: Encounter for general adult medical examination without abnormal findings[ICD10: Z00.00] Diagnosis: Essential (primary) hypertension[ICD10: I10] Diagnosis: Mixed hyperlipidemia[ICD10: E78.2] Diagnosis: Hypothyroidism, unspecified[ICD10: E03.9] Diagnosis: Chronic obstructive pulmonary disease, unspecified[ICD10: J44.9] Jayna VANESSA DO [address] [address] CPT-4: G0444 02/06/2022 ([id number]) OFFICE/OUTPATIENT VISIT EST Diagnosis: 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] Diagnosis: Vision changes[ICD10: H53.9] Latasha Anand JAYNA VANESSA DO [address] [address] CPT-4: 32868 02/01/2022 ([id number]) OFFICE/OUTPATIENT VISIT EST Diagnosis: Diarrhea[ICD10: R19.7] Diagnosis: Cough[ICD10: R05.9] Jayna VANESSA DO [address] [address] CPT-4: 20901 11/30/19 ([id number]) OFFICE/OUTPATIENT VISIT EST Diagnosis: Post-viral cough syndrome[ICD10: R05.8] Diagnosis: Otalgia of both ears[ICD10: H92.03] Diagnosis: Diarrhea[ICD10: R19.7] Jayna GUTIERREZ Daniel Villalba DO [address] [address] CPT-4: 86056 11/22/2021 ([id number]) OFFICE/OUTPATIENT VISIT EST Diagnosis: Diarrhea of presumed infectious origin[ICD10: R19.7] Diagnosis: Altered taste[ICD10: R43.2] Diagnosis: Chronic bronchitis[ICD10: J42] Diagnosis: History of recent pneumonia[ICD10: Z87.01] Latasha Kika JAYNA Daniel VANESSA [address] [address] CPT- 4: 17013 11/21/2021 ([id number]) OFFICE/OUTPATIENT VISIT EST Diagnosis: Serous otitis media[ICD10: H65.90] Diagnosis: Postnasal drip[ICD10: R09.82] Diagnosis: Pneumonia[ICD10: J18.9] Jayna GUTIERREZ TracyPaige JANIS ER DO [address] [address] CPT-4: 60931 11/09/2021 ([id number]) NO CHARGE Diagnosis: Pneumonia[ICD10: J18.9] Diagnosis: Respiratory distress[ICD10: R06.03] Jayna KENNEY Daniel VANESSA DO [address] [address] CPT-4: 63042 10/31/2021 ([id number]) OFFICE/OUTPATIENT VISIT EST Diagnosis: Vertigo[ICD10: R42] Diagnosis: Nausea[ICD10: R11.0] Diagnosis: Pneumonia[ICD10: J18.9] Jayna GUTIERREZ TracyPaige JANIS ER DO [address] [address] CPT-4: 39209 10/30/2021 ([id number]) OFFICE/OUTPATIENT VISIT EST Diagnosis: Cervicalgia[ICD10: M54.2] Jayna ELAM [address] [address] CPT-4: 07261 09/05/2021 ([id number]) OFFICE/OUTPATIENT VISIT EST Diagnosis: 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] Diagnosis: Seronegative rheumatoid arthritis[ICD10: M06.00] Latasha VANESSA DO [address] [address] CPT- 4: 67345 08/24/2021 ([id number]) OFFICE/OUTPATIENT VISIT EST Diagnosis: Upper respiratory infection[ICD10: J06.9] Diagnosis: Contact with and (suspected) exposure to other viral communicable diseases[ICD10: Z20.828] Latasha VANESSA [address] [address] CPT-4: 06751 07/04/2021 ([id number]) NURSE/OUTPATIENT VISIT EST Diagnosis: FLU VACCINE[ICD10: Z23] Jayna JIANG [address] [address] CPT-4: 77564 03/29/2021 ([id number]) OFFICE/OUTPATIENT VISIT EST Diagnosis: Vasovagal episode[ICD10: R55] Diagnosis: Orthostatic hypotension[ICD10: I95.1] Latasha VANESSA [employer] [address] [place] [address] CPT-4: 07675 03/01/2021 ([id number]) OFFICE/OUTPATIENT VISIT EST Diagnosis: Sebaceous cyst of right axilla[ICD10: L72.3] Latasha VANESSA DO [address] [address] CPT- 4: 28683 02/08/2021 ([id number]) OFFICE/OUTPATIENT VISIT EST Diagnosis: Contact dermatitis[ICD10: L25.9] Jayna VANESSA [address] [address] CPT-4: 23907 01/19/2021 ([id number]) OFFICE/OUTPATIENT VISIT EST Diagnosis: Upper respiratory infection[ICD10: J06.9] Diagnosis: COPD exacerbation[ICD10: J44.1] Latasha VANESSA DO [address] [address] CPT-4: 91319 11/29/2020 ([id number]) OFFICE/OUTPATIENT VISIT EST Diagnosis: Sinusitis[ICD10: J32.9] Diagnosis: Acute pansinusitis, recurrence not specified[ICD10: J01.40] Latasha VANESSA [address] [address] CPT-4: 12656 09/29/2020 OFFICE/OUTPATIENT VISIT EST Diagnosis: Other seasonal allergic rhinitis[ICD10: J30.2] Diagnosis: Chronic bronchitis[ICD10: J42] Diagnosis: 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] Diagnosis: Middle ear effusion[ICD10: H65.90] Diagnosis: Fluid level behind tympanic membrane of both ears[ICD10: H65.93] Latasha VANESSA [address] [address] CPT-4: 88866 09/19/2020 ([id number]) OFFICE/OUTPATIENT VISIT EST Diagnosis: Right-sided tinnitus[ICD10: H93.11] Jayna Dionicioallie VILLARREALJEREMIAH VANESSA [address] [address] CPT-4: 89715 08/10/2020 ([id number]) OFFICE/OUTPATIENT VISIT EST Diagnosis: Dysfunction of right eustachian tube[ICD10: H69.81] Diagnosis: Right-sided tinnitus[ICD10: H93.11] Jayna Vanessa [address] [address] CPT-4: 44569 2020 ([id number]) OFFICE/OUTPATIENT VISIT EST Diagnosis: Pyelonephritis[ICD10: N12] Diagnosis: Anemia[ICD10: D64.9] Diagnosis: Blood in stool[ICD10: K92.1] Jayna Greenbergleydaapolinar VANESSA DO [address] [address] CPT-4: 75632 07/13/2020 ([id number]) OFFICE/OUTPATIENT VISIT EST Diagnosis: Acute gastroenteritis[ICD10: K52.9] Jayna Dionicioallie MORILLOAlecia VANESSA [address] [address] CPT-4: 82246 07/05/2020 ([id number]) OFFICE/OUTPATIENT VISIT EST Diagnosis: Essential hypertension[ICD10: I10] Diagnosis: Hypothyroidism, unspecified[ICD10: E03.9] Diagnosis: Metabolic syndrome[ICD10: E88.81] Diagnosis: Mixed hyperlipidemia[ICD10: E78.2] Diagnosis: Ttqep-0-ivfzwdzsnmk 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] Jayna Dionicioallie JAYNA Daniel VANESSA [employer] [address] [place] [address] CPT- 4: 43157 06/22/2020 ([id number]) OFFICE/OUTPATIENT VISIT EST Diagnosis: Urinary tract infection[ICD10: N39.0] Jayna GERBER Daniel VANESSA [address] [address] CPT-4: 89502 05/17/2020 ([id number]) OFFICE/OUTPATIENT VISIT EST Diagnosis: Right pulmonary embolus[ICD10: I26.99] Jayna MARIA Daniel GREENBERGNDAPOLINAR [address] [address] CPT-4: 34622 03/14/2020 ([id number]) OFFICE/OUTPATIENT VISIT EST Diagnosis: COVID-19[ICD10: U07.1] Diagnosis: Pneumonia[ICD10: J18.9] Diagnosis: Dyspnea[ICD10: R06.00] Jayna Villalba DO [facility] [address] [place] [address] CPT-4: 09007 03/07/2020 ([id number]) OFFICE/OUTPATIENT VISIT EST Diagnosis: Upper respiratory infection[ICD10: J06.9] Genesis VANESSA DO [facility] [address] [place] [address] CPT-4: 72819 02/11/2020 ([id number]) OFFICE/OUTPATIENT VISIT EST Diagnosis: Dermatitis[ICD10: L30.9] Diagnosis: Urticaria[ICD10: L50.9] Jayna Vanessa [facility] [address] [place] [address] CPT-4: 69178 09/29/2019 ([id number]) OFFICE/OUTPATIENT VISIT EST Diagnosis: Bone spur of right foot[ICD10: M77.51] Diagnosis: Recurrent UTI[ICD10: N39.0] Diagnosis: MRSA (methicillin resistant staph aureus) culture positive[ICD10: Z22.322] Jayna Vanessa [facility] [address] [place] [address] CPT-4: 49230 09/14/2019 ([id number]) NURSE/OUTPATIENT VISIT EST Diagnosis: Urinary tract infection[ICD10: N39.0] Jayna VANESSA DO [facility] [address] [place] [address] CPT-4: 54639 09/11/2019 ([id number]) NURSE/OUTPATIENT VISIT EST Diagnosis: Urinary tract infection, site not specified[ICD10: N39.0] Jayna GREENBERGNDER DO [facility] [address] [place] [address] CPT-4: 74287 09/08/2019 ([id number]) NURSE/OUTPATIENT VISIT EST Diagnosis: Urinary tract infection, site not specified[ICD10: N39.0] aJyna VANESSA DO [facility] [address] [place] [address] CPT-4: 42693 09/07/2019 ([id number]) OFFICE/OUTPATIENT VISIT EST Diagnosis: Pelvic pain in female[ICD10: R10.2] Diagnosis: Urinary frequency[ICD10: R35.0] [facility] [address] [place] [address] CPT-4: 96556 09/02/2019 ([id number]) OFFICE/OUTPATIENT VISIT EST Diagnosis: Sinusitis[ICD10: J32.9] [facility] [address] [place] [address] CPT-4: 43181 07/09/2019 ([id number]) OFFICE/OUTPATIENT VISIT EST Diagnosis: UTI (urinary tract infection)[ICD10: N39.0] Diagnosis: FLU VACCINE[ICD10: Z23] [facility] [address] [place] [address] CPT-4: 48624 04/15/2019 ([id number]) OFFICE/OUTPATIENT VISIT EST Diagnosis: Pain in right leg[ICD10: M79.604] Genesis BRUCEER DO [address] [address] CPT-4: 27297 04/07/2019 ([id number]) OFFICE/OUTPATIENT VISIT EST Diagnosis: Diverticulitis of large intestine without perforation or abscess without bleeding[ICD10: K57.32] Diagnosis: Cystitis[ICD10: N30.90] Jayna [facility] [address] [place] [address] CPT-4: 09814 03/25/2019 ([id number]) OFFICE/OUTPATIENT VISIT EST Diagnosis: Abdominal pain[ICD10: R10.9] Diagnosis: Cystitis[ICD10: N30.90] Jayna [facility] [address] [place] [address] CPT-4: 29726 03/18/2019 ([id number]) OFFICE/OUTPATIENT VISIT EST Diagnosis: Diverticulitis of large intestine without perforation or abscess without bleeding[ICD10: K57.32] Diagnosis: Generalized abdominal pain[ICD10: R10.84] Diagnosis: Urinary tract infection, site not specified[ICD10: N39.0] Genesis VANESSA DO [address] [address] CPT-4: 86165 01/26/2019 ([id number]) OFFICE/OUTPATIENT VISIT EST Diagnosis: Mild intermittent asthma with (acute) exacerbation[ICD10: J45.21] Diagnosis: Allergic rhinitis due to pollen[ICD10: J30.1] Jayna VANESSA DO [address] [address] CPT- 4: 04034 01/08/2019 ([id number]) OFFICE/OUTPATIENT VISIT EST Diagnosis: Mild intermittent asthma with (acute) exacerbation[ICD10: J45.21] Diagnosis: URI, ACUTE[ICD10: J06.9] Diagnosis: Urinary tract infection, site not specified[ICD10: N39.0] Jayna VANESSA DO [address] [address] CPT-4: 84181 01/06/2019 ([id number]) OFFICE/OUTPATIENT VISIT EST Diagnosis: Benign paroxysmal vertigo, bilateral[ICD10: H81.13] Diagnosis: Migraine without aura, not intractable, without status migrainosus[ICD10: G43.009] Jayna VANESSA DO [facility] [address] [place] [address] CPT-4: 28276 10/30/2018 ([id number]) OFFICE/OUTPATIENT VISIT EST Diagnosis: Acute bronchitis, unspecified[ICD10: J20.9] Diagnosis: Cough[ICD10: R05] Diagnosis: Other seasonal allergic rhinitis[ICD10: J30.2] Stacey Feng JAYNA VANESSA DO [facility] [address] [place] [address] CPT- 4: 44491 10/07/2018 ([id number]) OFFICE/OUTPATIENT VISIT EST Diagnosis: Pain in unspecified joint[ICD10: M25.50] Diagnosis: Pain in right ankle and joints of right foot[ICD10: M25.571] Diagnosis: Other specified disorders of bone density and structure, unspecified site[ICD10: M85.80] Jayna GUTIERREZ TracyPaige DIONICIONDER DO [facility] [address] [place] [address] CPT-4: 17095 06/23/2018 ([id number]) OFFICE/OUTPATIENT VISIT EST Diagnosis: Hypothyroidism, unspecified[ICD10: E03.9] Diagnosis: Mixed hyperlipidemia[ICD10: E78.2] Jayna ALVARENGA SPaige DIONICIONDER DO [facility] [address] [place] [address] CPT-4: 43714 01/16/2018 ([id number]) OFFICE/OUTPATIENT VISIT EST Diagnosis: Cervicalgia[ICD10: M54.2] Genesis Jolenerylan GUTIERREZ TracyPaige DIONICIO NDER DO [address] [address] CPT-4: 10743 10/16/2017 ([id number]) OFFICE/OUTPATIENT VISIT EST Diagnosis: Headache[ICD10: R51] Diagnosis: Dizziness and giddiness[ICD10: R42] Jayna KENNEY SPaige DIONICIONDER DO [address] [address] CPT-4: 35758 09/12/2017 OFFICE/OUTPATIENT VISIT EST Diagnosis: Cough[ICD10: R05] Genesis Jolenerylan GUTIERREZ SPaige DIONICIONDER DO [facility] [address] [place] [address] CPT-4: 06344 08/20/2017 ([id number]) OFFICE/OUTPATIENT VISIT EST Diagnosis: COUGH[ICD10: R05] Jayna GUTIERREZ SPaige DIONICIONDER DO [employer] [address] [place] [address] CPT-4: 47821 08/13/19 18 ([id number]) OFFICE/OUTPATIENT VISIT EST Diagnosis: Acute bronchospasm[ICD10: J98.01] Jayna Thomas SPaige ORENDER [address] [address] CPT-4: 43277 07/29/2017 OFFICE/OUTPATIENT VISIT EST Diagnosis: Influenza due to identified novel influenza A virus with other respiratory manifestations[ICD10: J09.X2] Genesis VANESSA DO [address] [address] CPT-4: 03061 07/25/2017 ([id number]) OFFICE/OUTPATIENT VISIT EST Diagnosis: Pain in unspecified joint[ICD10: M25.50] Jayna VANESSA DO [address] [address] CPT- 4: 49029 06/10/2017 OFFICE/OUTPATIENT VISIT EST Diagnosis: Acute bronchitis, unspecified[ICD10: J20.9] Genesis VANESSA [address] [address] CPT- 4: 51323 05/28/2017 ([id number]) OFFICE/OUTPATIENT VISIT EST Diagnosis: Hypothyroidism, unspecified[ICD10: E03.9] Diagnosis: Mixed hyperlipidemia[ICD10: E78.2] Diagnosis: Bcplj-9-gwygsgdxttr 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] Diagnosis: Sebaceous cyst[ICD10: L72.3] Jayna VANESSA [address] [address] CPT-4: 93303 11/28/2016 ([id number]) OFFICE/OUTPATIENT VISIT EST Diagnosis: Right upper quadrant pain[ICD10: R10.11] Diagnosis: Epigastric pain[ICD10: R10.13] Jayna VANESSA [address] [address] CPT-4: 67404 06/05/2016 ([id number]) OFFICE/OUTPATIENT VISIT EST Diagnosis: FLU VACCINE[ICD10: Z23] Jayna JIANG [address] [address] CPT-4: 15027 05/01/2016 OFFICE/OUTPATIENT VISIT EST Diagnosis: Hypothyroidism, unspecified[ICD10: E03.9] Diagnosis: Type 1 diabetes mellitus without complications[ICD10: E10.9] Diagnosis: Mixed hyperlipidemia[ICD10: E78.2] Diagnosis: Essential (primary) hypertension[ICD10: I10] Diagnosis: Mixed incontinence[ICD10: N39.46] Jayna [address] [address] CPT-4: 42761 11/08/2015 ([id number]) OFFICE/OUTPATIENT VISIT EST Diagnosis: Hypothyroidism, unspecified[ICD10: E03.9] Diagnosis: Other fatigue[ICD10: R53.83] Jayna VANESSA [address] [address] CPT-4: 63201 07/19/2015 ([id number]) OFFICE/OUTPATIENT VISIT EST Diagnosis: Hypothyroidism, unspecified[ICD10: E03.9] Diagnosis: Mixed hyperlipidemia[ICD10: E78.2] Diagnosis: Metabolic syndrome[ICD10: E88.81] Diagnosis: Right lower quadrant abdominal tenderness[ICD10: R10.813] Diagnosis: FLU VACCINE[ICD10: Z23] Jayna JIANG [address] [address] CPT-4: 63149 03/28/2015 ([id number]) OFFICE/OUTPATIENT VISIT EST Diagnosis: MALAISE AND FATIGUE[ICD9: 780.79] Diagnosis: DEPRESSIVE DISORDER NEC[ICD9: 311] Diagnosis: HYPOTHYROIDISM[ICD9: 244.9] Diagnosis: PNEUMOCOCCAL VACCINE[ICD10: Z23] Jayna [address] [address] CPT-4: 60081 02/08/2015 ([id number]) OFFICE/OUTPATIENT VISIT EST Diagnosis: MALAISE AND FATIGUE[ICD9: 780.79] Diagnosis: DEPRESSIVE DISORDER NEC[ICD9: 311] Diagnosis: HYPOTHYROIDISM[ICD9: 244.9] Diagnosis: ARTHRALGIA-MULTIPLE SITES[ICD9: 719.49] Jayna Dionicioleydaapolinar COPELANDPILAR Daniel VANESSA DO [employer] [address] [place] [address] CPT-4: 63043 01/11/2015 ([id number]) OFFICE/OUTPATIENT VISIT EST 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] Diagnosis: - I - HYPOTHYROIDISM[ICD9: 244.9] Diagnosis: COUGH[ICD10: R05] Diagnosis: ALLERGIC RHINITIS[ICD9: 477.9] Diagnosis: Lumbar degenerative disc disease[ICD9: 722.52] Jaynaparam GUTIERREZ TracyPaige OTF DO [employer] [address] [place] [address] CPT- 4: 38614 11/24/2014 ([id number]) OFFICE/OUTPATIENT VISIT EST Diagnosis: Allergic reaction[ICD9: 995.3] Galina Leos JAYNA Molina Paige OTF DO [employer] [address] [place] [address] CPT-4: 89119 11/19/2014 ([id number]) OFFICE/OUTPATIENT VISIT EST Diagnosis: ALLERGIC RHINITIS[ICD9: 477.9] Diagnosis: WHEEZING[ICD9: 786.07] Diagnosis: URINARY TRACT INFECTION[ICD9: 599.0] Diagnosis: Right flank pain[ICD9: 789.09] Conchita DownsMellanayeli MORILLOLINE Tracy Paige OTF DO [employer] [address] [place] [address] CPT-4: 10657 10/27/2014 ([id number]) OFFICE/OUTPATIENT VISIT EST Diagnosis: URINARY TRACT INFECTION[ICD9: 599.0] Diagnosis: Flank pain[ICD9: 789.09] Conchita DownsMellanayeli MORILLOLINE Daniel DELVALLE EMMA DO [employer] [address] [place] [address] CPT-4: 07178 09/23/2014 ([id number]) OFFICE/OUTPATIENT VISIT EST Diagnosis: HYPERTENSION[ICD9: 401.9] Diagnosis: - I - HYPOTHYROIDISM[ICD9: 244.9] Diagnosis: HYPERLIPIDEMIA NEC/NOS[ICD9: 272.4] Diagnosis: DYSMETABOLIC SYNDROME X[ICD9: 277.7] Jayna QUEZADA SPaige ORENDER DO [address] [address] CPT-4: 76839 07/28/2014 OFFICE/OUTPATIENT VISIT EST Diagnosis: HYPERTENSION[ICD9: 401.9] Diagnosis: GROSS HEMATURIA[ICD9: 599.71] Jayna Sanchez ORENDER DO [address] [address] CPT-4: 12476 03/30/2014 ([id number]) OFFICE/OUTPATIENT VISIT EST 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 ORENDER DO [address] [address] CPT-4: 54986 06/29/2013 OFFICE/OUTPATIENT VISIT EST Diagnosis: DEPRESSIVE DISORDER NEC[ICD9: 311] Jayna Vanessa GERMAINE ALVARENGA S. ORENDER DO [address] [address] CPT-4: 46995 05/26/2013 ([id number]) OFFICE/OUTPATIENT VISIT EST Diagnosis: BRONCHITIS, ACUTE[ICD9: 466.0] Diagnosis: HYPOTHYROIDISM[ICD9: 244.9] Diagnosis: HYPERLIPIDEMIA NEC/NOS[ICD9: 272.4] Diagnosis: Shoulder pain[ICD9: 719.41] Jayna PUCKETT DO [address] [address] CPT-4: 92737 05/06/2013 ([id number]) OFFICE/OUTPATIENT VISIT EST Diagnosis: BRONCHITIS, ACUTE[ICD9: 466.0] Diagnosis: SINUSITIS, ACUTE[ICD9: 461.9] Jayna VANESSA [address] [address] CPT-4: 85918 04/23/2013 ([id number]) OFFICE/OUTPATIENT VISIT EST Diagnosis: DYSPNEA[ICD9: 786.09] Diagnosis: EDEMA[ICD9: 782.3] Diagnosis: RGVXS-4-PZKPVMGRPDY DEFICIENCY[ICD9: 273.4] Diagnosis: COUGH[ICD9: 786.2] Jayna VANESSA [address] [address] CPT-4: 85014 03/31/20 13 OFFICE/OUTPATIENT VISIT EST Diagnosis: Chest pain[ICD9: 786.50] Diagnosis: ANXIETY STATE NOS[ICD9: 300.00] Conchita VANESSA [address] [address] CPT-4: 70815 03/05/2013 ([id number]) OFFICE/OUTPATIENT VISIT EST Diagnosis: HYPERLIPIDEMIA NEC/NOS[ICD9: 272.4] Diagnosis: HYPOTHYROIDISM[ICD9: 244.9] Diagnosis: Adqpy-6-xglzvuooqfz deficiency[ICD9: 273.4] Diagnosis: ALLERGIC RHINITIS[ICD9: 477.9] Jayna VANESSA [address] [address] CPT-4: 81737 02/04/2013 ([id number]) OFFICE/OUTPATIENT VISIT EST Diagnosis: COUGH[ICD9: 786.2] Diagnosis: ALLERGIC RHINITIS[ICD9: 477.9] Jayna VANESSA [address] [address] CPT-4: 96815 11/27/2012 ([id number]) OFFICE/OUTPATIENT VISIT EST Diagnosis: COUGH[ICD9: 786.2] Diagnosis: DYSPNEA[ICD9: 786.09] Jayna VANESSA [address] [address] CPT-4: 94025 11/11/2012 ([id number]) OFFICE/OUTPATIENT VISIT EST Diagnosis: ABDOMINAL PAIN[ICD9: 789.00] Diagnosis: DIARRHEA[ICD9: 787.91] Diagnosis: COUGH[ICD9: 786.2] Jayna VANESSA DO [address] [address] CPT-4: 32796 10/21/19 13 OFFICE/OUTPATIENT VISIT EST Diagnosis: COUGH[ICD9: 786.2] Diagnosis: SINUSITIS, ACUTE[ICD9: 461.9] Diagnosis: PHARYNGITIS, ACUTE[ICD9: 462] Jayna VANESSA [address] [address] CPT-4: 73752 09/03/2012 OFFICE/OUTPATIENT VISIT EST Diagnosis: ABDOMINAL PAIN[ICD9: 789.00] Diagnosis: Diarrhea[ICD9: 787.91] Jayna VALENZUELA R DO [address] [address] CPT-4: 00134 07/23/2012 ([id number]) OFFICE/OUTPATIENT VISIT EST Diagnosis: DM 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 TYPE II, UNCONTROLLED[ICD9: 250.02] Diagnosis: HYPERLIPIDEMIA NEC/NOS[ICD9: 272.4] Diagnosis: GERD[ICD9: 530.81] Jayna VANESSA [address] [address] CPT-4: 02232 05/20/20 OFFICE/OUTPATIENT VISIT EST Diagnosis: DERMATITIS NOS[ICD9: 692.9] Galina PUCKETT DO [address] [address] CPT-4: 39060 04/04/2012 ([id number]) OFFICE/OUTPATIENT VISIT EST Diagnosis: HYPERLIPIDEMIA NEC/NOS[ICD9: 272.4] Diagnosis: HYPOTHYROIDISM[ICD9: 244.9] Diagnosis: DYSMETABOLIC SYNDROME X[ICD9: 277.7] Jayna VANESSA [address] [address] CPT-4: 10145 01/02/2012 OFFICE/OUTPATIENT VISIT EST Diagnosis: COUGH[ICD9: 786.2] Diagnosis: SINUSITIS, ACUTE[ICD9: 461.9] Lizzie Klely JAYNA VANESSA [address] [address] CPT-4: 74631 09/04/2011 OFFICE/OUTPATIENT VISIT EST Diagnosis: Diverticulitis[ICD9: 562.11] Diagnosis: THROMBOPHLEBITIS[ICD9: 451.9] Jayna VANESSA [address] [address] CPT-4: 93475 08/14/2011 OFFICE/OUTPATIENT VISIT EST Diagnosis: COUGH[ICD9: 786.2] Jayna VANESSA [address] [address] CPT-4: 28249 07/25/19 OFFICE/OUTPATIENT VISIT EST Diagnosis: HYPOTHYROIDISM[ICD9: 244.9] Diagnosis: HYPERLIPIDEMIA NEC/NOS[ICD9: 272.4] Diagnosis: Total knee replacement status[ICD9: V43.65] Jayna VANESSA [address] [address] CPT- 4: 14322 07/12/2011 OFFICE/OUTPATIENT VISIT EST Diagnosis: BRONCHITIS, ACUTE[ICD9: 466.0] Diagnosis: COUGH[ICD9: 786.2] Jayna GREENBERGNDAPOLINAR [address] [address] CPT-4: 60049 05/09/20 11 OFFICE/OUTPATIENT VISIT EST Diagnosis: BRONCHITIS, ACUTE[ICD9: 466.0] Diagnosis: ASTHMA NOS[ICD9: 493.90] Diagnosis: Pleurisy[ICD9: 511.0] Jayna Sanchez [facility] [address] [place] [address] CPT-4: 83318 05/02/2011 OFFICE/OUTPATIENT VISIT EST Diagnosis: COUGH[ICD9: 786.2] Jayna Sanchez [facility] [address] [place] [address] CPT-4: 48204 04/25/20 11 OFFICE/OUTPATIENT VISIT EST Diagnosis: COUGH[ICD9: 786.2] Diagnosis: SINUSITIS, ACUTE[ICD9: 461.9] Jayna GREENBERGNDER DO [address] [address] CPT-4: 78937 04/04/2011 OFFICE/OUTPATIENT VISIT EST Diagnosis: HYPOTHYROIDISM[ICD9: 244.9] Diagnosis: Knee osteoarthritis[ICD9: 715.96] Jayna Thomas SPaige ORENDER DO [address] [address] CPT-4: 15394 03/01/2011 OFFICE/OUTPATIENT VISIT EST Jayna GREENBERG NDER DO [address] [address] CPT-4: 62504 01/04/2011 ([id number]) OFFICE/OUTPATIENT VISIT EST Jayna PISANO UELINE S. [facility] [address] [place] [address] CPT-4: 93289 12/07/2010 ([id number]) OFFICE/OUTPATIENT VISIT EST Jayna Otf PISANO UELINE S. [facility] [address] [place] [address] CPT-4: 24973 10/09/2010 ([id number]) OFFICE/OUTPATIENT VISIT EST Jaynaparam PISANO UELINE S. [facility] [address] [place] [address] CPT-4: 52098 08/07/2010 ([id number]) OFFICE/OUTPATIENT VISIT, EULOGIO COPELANDLINE S. [facility] [address] [place] [address] CPT-4: 83766 06/06/2010 ([id number]) OFFICE/OUTPATIENT VISIT, [facility] [address] [place] [phone] CPT-4: 65918 03/20/2010 ([id number]) OFFICE/OUTPATIENT VISIT, [facility] [address] [place] [phone] CPT-4: 36096 01/30/2010 ([id number]) OFFICE/OUTPATIENT VISIT, [facility] [address] [place] [phone] CPT-4: 89830 01/09/2010 ([id number]) OFFICE/OUTPATIENT VISIT, [facility] [address] [place] [phone] CPT-4: 69181 10/26/2009 ([id number]) OFFICE/OUTPATIENT VISIT, [facility] [address] [place] [phone] CPT-4: 06069 10/18/19 10 ([id number]) OFFICE/OUTPATIENT VISIT, [facility] [address] [place] [phone] CPT-4: 71569 10/04/2009 ([id number]) OFFICE/OUTPATIENT VISIT, [facility] [address] [place] [phone] CPT-4: 92530 09/21/2009 Plan of Care Planned Activity Notes [...] 06/29/2022 App[facility]ment: [facility] [phone] [id number] [facility] 06/29/2022 Patient Education: ciprofloxacin HCl- [employer] Coupon [id number] Completed 06/29/2022 Visit Diagnosis Plan: Depression Discussion: Increase Wellbutrin XL to 300mg po qAM Fwup 2 mos ICD-9 : 311 ICD-10 : F32.A 05/28/2022 Visit Diagnosis Plan: Hypothyroidism Discussion: Labs discussed Decrease levothyroxine to 150mcg 6 days a week and repeat thyroid lab in 2mos ICD-9 : 244.9 ICD-10 : E03.9 05/28/2022 Appointment: [facility] [phone] [id number] FOLLOW UP 05/28/2022 Visit Diagnosis Plan: [...] : R73.9 05/10/2022 Appointment: Jayna Vanessa WPtel: [address] [place], [place] [phone] US FOLLOW UP 05/10/2022 Visit Diagnosis Plan: Migraine, intractable Discussion : Toradol 30mg IM x1 given in clinic. Start Rizatriptan-- discussed on how to use and may repeat x1 dose 2 hours later. Restart propranolol for migraine prevention. Notify clinic if migraine not improving. ICD-9 : 346.91 ICD-10 : G43.919 04/18/2022 Appointment: Marlene Staples WPtel: [phone] [phone] ACUTE ILLNESS 04/18/2022 Patient Education: propranolol- OptimizeRX Coupon [id number] Completed 04/18/2022 Appointment: Jayna Vanessa WPtel: [address] [place], [place] [phone] US INJECTION 04/05/2022 Appointment: Jayna Vanessa WPtel: [address] [place], [place] [phone] US CANCELED 03/21/2022 Visit Diagnosis Plan: Acute [...] : J30.9 02/15/2022 Appointment: Jayna Vanessa WPtel: [address] [place], [place] [phone] US ACUTE ILLNESS 02/15/2022 Patient Education: prednisone- OptimizeRX Coupon [id number] https://www.RoverTown/samplemd/resources/getResource/61/21g78kt8-u585-2r75-yi Completed 02/15/2022 Visit Diagnosis Plan: Hypothyroidism, unspecified Disc ussion: Stable ICD-9 : 244.9 ICD-10 : E03.9 02/06/2022 Visit Diagnosis Plan: Encounter for [facility] adult medical examination without abnormal findings [...] J44.9 02/06/2022 Appointment: Jayna Vanessa WPtel: [phone] [phone] Annual Well Visit 02/06/2022 Care Plan: Annual depression screening, 15 minutes 02/06/2022 Visit Diagnosis Plan: 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 Patient declines- will get stat CT of the head, cbc, cmp, and ESR and fwup with results [facility] sample given ICD-9 : 346.03 ICD-10 : G43.111 02/01/2022 Appointment: Latasha Anand WPtel[facility] [phone] [facility] AC[facility] I[facility]NESS 02/01/2022 Patient Education: Patient Medication [...] R19.7 11/29/2021 Appointment: Jayna Vanessa WPtel: [phone] [place] [phone] FOLLOW UP 11/29/2021 Visit Diagnosis Plan: Diarrhea Discussion: C Diff nega tive Treat with diflucan and Restora-RX Fwup 1 week ICD-9 : 787.91 ICD-10 : R19.7 11/22/2021 Visit Diagnosis Plan: Post-viral cough syndrome Discus joaquín: Change albuterol to Breztri 2p BID Add singulair 10mg po q HS ICD-9 : 786.2 ICD-10 : R05.8 11/22/2021 Appointment: Jayna Vanessa WPtel: [phone] ACUTE ILLNESS 11/22/2021 Patient Education: Singulair- OptimizeRX Coupon [id number] https://www.RoverTown/samplemd/resources/getResource/61/8g29hyt0-3kgo-4691-0u Completed 11/22/2021 Visit Diagnosis Plan: Diarrhea of presumed infectious origin Discussion: Will check for c-diff due to recent antibiotics and foul smelling diarrhea ICD-9 : 009.3 ICD-10 : R19.7 11/21/2021 Visit Diagnosis Plan: History of recent pneumonia Disc ussion: Check cbc, cmp, ESR, and cxr now ICD-9 : V12.61 ICD-10 : Z87.01 11/21/2021 Appointment: Latasha Anand WPtel: [phone] ACUTE ILLNESS 11/21/2021 Patient Education: Patient Medication Summary Completed 11/21/2021 Visit Diagnosis Plan: Pneumonia Discussion: Finish all abx and continue albuterol Fwup next week ICD-9 : 486 ICD-10 : J18.9 11/09/2021 Visit Diagnosis Plan: Serous otitis media Discussion: Kenalog 40mg with Dexamethasone 2mg IM now ICD-9 : 381.4 ICD-10 : H65.90 11/09/2021 Appointment: Jayna Vanessa WPtel: [address] [place], [place] [phone] Hospital Follow Up 11/09/2021 Visit Diagnosis Plan: Pneumonia Discussion: Admit to h ospital ICD-9 : 486 ICD-10 : J18.9 10/31/2021 Appointment: Jayna Vanessa WPtel: [address] [place], [place] [address] FOLLOW UP 10/31/2021 Visit Diagnosis Plan: Nausea [...] e prn 10/30/2021 Appointment: Jayna Vanessa WPtel: [address] [place], [place] [phone] ACUTE ILLNESS 10/30/2021 Visit Diagnosis Plan: Cervicalgia Discussion: Had x-ra ys done Kenalog 40mg IM now Baclofen prn Mobic for 1 week Topical muscle rube Moist heat and stretches shown Has PT sessions scheduled next week so will add in therapy for neck ICD-9 : 723.1 ICD-10 : M54.2 09/05/2021 Appointment: Jayna Vanessa WPtel: [address] [place], [place] [phone] ACUTE ILLNESS 09/05/2021 Visit Diagnosis Plan: Arthritis [...] 08/24/2021 Appointment: Latasha Anand WPtel: [phone] [phone] ACUTE ILLNESS 08/24/2021 Patient Education: Patient Medication Summary Completed 08/24/2021 Patient Education: prednisone- OptimizeRX Coupon [id number] Completed 08/24/2021 Visit Plan: Supportive care. Rest, [...] 07/04/2021 Appointment: Latasha Anand WPtel: [phone] [phone] US ACUTE ILLNESS 07/04/2021 Patient Education: Patient Medication Summary Completed 07/04/2021 Patient Education: Patient Medication Summary Completed 07/04/2021 Appointment: Latasha Anand WPtel: [phone] [phone] US NO SHOW 07/03/2021 Appointment: Latasha Anand WPtel: [phone] [phone] US patients issue resolved so moved to 's schedule for his hospital fwup (km) CANCELED 03/29/2021 Appointment: Jayna Vanessa WPtel: [phone] [phone] US INJECTION 03/29/2021 Visit Diagnosis Plan: Vasovagal episode Discussion: Mo nitored in office. Stable, feeling better- sent to [facility] for 1L NS IV, cbc, and cmp. ICD-9 : 780.2 ICD-10 : R55 03/01/2021 Patient Education: Patient Medication Summary Completed 03/01/2021 Visit Diagnosis Plan: Sebaceous cyst of right axilla D iscussion: Pustule/cyst drained- see note. F/U for concerns. ICD-9 : 706.2 ICD-10 : L72.3 02/08/2021 Appointment: Latasha Anand WPtel: [phone] [phone] ACUTE ILLNESS 02/08/2021 Patient Education: Patient Medication Summary Completed 02/08/2021 Visit Diagnosis Plan: Contact dermatitis Discussion: T opical TAC and prednisone Notify if persists or worsens ICD-9 : 692.9 ICD-10 : L25.9 01/19/2021 Appointment: Jayna Vanessa WPtel: [phone] [phone] ACUTE ILLNESS 01/19/2021 Patient Education: prednisone- OptimizeRX Coupon [id number] Completed 01/19/2021 Patient Education: triamcinolone acetonide- OptimizeRX Coupon [id number] Completed 01/19/2021 Visit Diagnosis Plan: Hypothyroidism, unspecified Disc ussion: Increase levothyroxine to 150mcg po daily and recheck TSH and free T4 in 2mos ICD-9 : 244.9 ICD-10 : E03.9 01/03/2021 Visit Diagnosis Plan: Essential (primary) hypertension Discussion: Stable ICD-9 : 401.9 ICD-10 : I10 01/03/2021 Visit Diagnosis Plan: Encounter for [facility] adult medical examination without abnormal findings Discussion: Mediterranean diet Combinati on of cardio and weight bearing exercise Had Covid vaccines Lab discussed ICD-9 : V70.9 ICD-10 : Z00.00 01/03/2021 Visit Diagnosis Plan: Chronic obstructive pulmonary di sease, unspecified Discussion: Following with pulmonology ICD-9 : 496 ICD-10 : J44.9 01/03/2021 Appointment: Jayna Vanessa WPtel: [phone] [place] [phone] Annual Well Visit 01/03/2021 Patient Education: levothyroxine- OptimizeRX Coupon [id number] https://www.RoverTown/samplemd/resources/getResource/61/0h248vz5-9nw1-2667-s3 Completed 01/03/2021 Visit Diagnosis Plan: COPD exacerbation Discussion: Sa ivon of keith given. Prednisone 40 mg x 5 days for exacerbation- increased cough, shortness of breath, and phlegm. Promethazine DM cough syrup sent d/t frequent hacking cough that interrupts sleep. F/U for no improvement or any concerns. ICD-9 : 491.21 ICD-10 : J44.1 11/29/2020 Appointment: Latasha Anand WPtel: [phone] [place] [phone] ACUTE ILLNESS 11/29/2020 Patient Education: Patient Medication Summary Completed 11/29/2020 Patient Education: prednisone- OptimizeRX Coupon [id number] Completed 11/29/2020 Patient Education: promethazine-DM- OptimizeRX Coupon [id number] Completed 11/29/2020 Visit Diagnosis Plan: Sinusitis Discussion: Will start doxycycline (pcn allergy). Sinus rinses. Tylenol/nsaids for headache/pain. Return to clinicif not improving/concerns. ICD-9 : 473.9 ICD-10 : J32.9 09/29/2020 Appointment: Latasha Anand WPtel: [phone] [phone] ACUTE ILLNESS 09/29/2020 Patient Education: Patient Medication Summary Completed 09/29/2020 Patient Education: doxycycline hyclate- OptimizeRX Coupon [id number] Completed 09/29/2020 Visit Diagnosis Plan: Other [...] J42 09/19/2020 Appointment: Latasha Anand WPtel: [phone] [phone] ACUTE ILLNESS 09/19/2020 Patient Education: Patient Medication Summary Completed 09/19/2020 Patient Education: ProAir HFA- OptimizeRX Coupon [id number] Completed 09/19/2020 Visit Diagnosis Plan: Right-sided tinnitus [...] H93.11 08/10/2020 Appointment: Jayna Vanessa WPtel: [phone] [phone] FOLLOW UP 08/10/2020 Patient Education: neomycin-polymyxin B-dexameth- Opti mizeRX Coupon [id number] https://www.AirMedia.com/samplemd/resources/getResource/61/xq880y24-i98i-8l70-tw Completed 08/10/2020 Visit Diagnosis Plan: Dysfunction of right eustachian tube Discussion: Alma.nc video visit done Increase zyrtec to BID Increase flonase to BID Add prednisone To office at end of week to assess otoscope exam if persists ICD-9 : 381.81 ICD-10 : H69.81 08/01/2020 Appointment: Jayna Vanessa WPtel: [phone] [place] [phone] TELEMEDICINE 08/01/2020 Patient Education: prednisone- OptimizeRX Coupon [id number] https://www.RoverTown/sampleAirCell/resources/getResource/61/vx1y50z1-8767-9f8g-25 Completed 08/01/2020 Visit Diagnosis Plan: Pyelonephritis Discussion: Hilary daniel all abx Push fluids Check lab and repeat UA in 5 days--CBC, CMP, ESR ICD-9 : 590.80 ICD-10 : N12 07/13/2020 Appointment: Jayna Vanessa WPtel: [phone] [place] [phone] Hospital Follow Up 07/13/2020 Visit Diagnosis Plan: Acute gastroenteritis Discussion : Telephone visit completed Clear liquid diet next 24-48hrs Flagyl to cover for colitis/diverticulitis Zofran prn Notify or to ER if worsening ICD-9 : 558.9 ICD-10 : K52.9 07/05/2020 Appointment: Jayna Vanessa WPtel: [phone] [phone] TELEMEDICINE 07/05/2020 Patient Education: ondansetron HCl- OptimizeRX Coupon [id number] https://www.RoverTown/samplemd/resources/getResource/61/n7c87av5-6s9u-725v-3s Completed 07/05/2020 Visit Diagnosis Plan: Metabolic syndrome Discussion: U pdate CMP, HBa1c ICD-9 : 277.7 ICD-10 : E88.81 06/22/2020 Visit Diagnosis Plan: Tevjz-3-kwmixroiowe deficiency D iscussion: Following with pulmonology ICD-9 [...] : I10 06/22/2020 Appointment: Jayna Vanessa WPtel: [address] [place], [place] [phone] FOLLOW UP 06/22/2020 Visit Diagnosis Plan: Urinary tract infection Discussi on: Macrobid Diflucan Push water Notify if worsens ICD-9 : 599.0 ICD-10 : N39.0 05/17/2020 Appointment: Jayna Vanessa WPtel: [address] [place], [place] [phone] ACUTE ILLNESS 05/17/2020 Patient Education: fluconazole- OptimizeRX Coupon [id number] https://www.RoverTown/AGRIMAPSmd/resources/getResource/61/2g1ad5lc-k9s8-2n3f-1f Completed 05/17/2020 Visit Diagnosis Plan: Right pulmonary embolus Discussi on: Continue eliquis at 5mg po BID Has appointments pending with pulmonology and hematology Fwup after visits with both of these specialists ICD-9 : 415.19 ICD-10 : I26.99 03/14/2020 Appointment: Jayna Vanessa WPtel: [address] [place], [place] [phone] [facility] 03/14/20 on cell -- home phone had busy signal Hospital Follow Up 03/14/2020 Appointment: Jayna Vanessa WPtel: [address] [place], [place] [phone] I schedule patient by mistake ddo Scheduled [...] R06.00 03/07/2020 Appointment: Jayna Vanessa WPtel: [phone] [phone] ACUTE ILLNESS 03/07/2020 Care Plan: CT THORAX W/DYE LOINC : 42892 -6 Pending 03/07/2020 Appointment: Jayna Vanessa WPtel: [phone] [phone] NO SHOW - FORGIVEN 03/02/2020 Visit [...] severity of her symptoms. [place] so [facility]. call ofice with new or worsening symptoms, otherwise push fluids. ICD-9 : 465.9 ICD-10 : J06.9 02/11/2020 Appointment: Genesis Fernández [address] [place] [address] TELEMEDICINE 02/11/2020 Patient Education: ProAir HFA- OptimizeRX Coupon [id number] Completed 02/11/2020 Patient Education: Medrol (Isaiah)- OptimizeRX Coupon [id number] Completed 02/11/2020 Visit Diagnosis Plan: Hypothyroidism, unspecified [...] I10 12/21/2019 Visit Diagnosis Plan: Encounter for [facility] adult medical examination without abnormal findings Discussion: Mediterranean diet Combinati on of cardio and weight bearing exercise Lab discussed Last colonoscopy 3 years ago ICD-9 : V70.9 ICD-10 : Z00.00 12/21/2019 Appointment: Jayna Vanessatel: [phone] [phone] Annual Well Visit 12/21/2019 Care Plan: Referral Order SNOMED-CT : [id number] Pending 12/21/2019 Visit Diagnosis Plan: Dermatitis Discussion: Doxy.me v ideo visit done Cover with Prednisone taper Use Zyrtec 10mg po q AM BID ICD-9 : 692.9 ICD-10 : L30.9 09/29/2019 Appointment: Jayna Vanessa WPtel: [phone] [phone] TELEMEDICINE 09/29/2019 Patient Education: prednisone- OptimizeRX Coupon [phone] https://www.AirMedia.com/samplemd/resources/getResource/61/99a03h57-0c95-9l73-2m Completed 09/29/2019 Visit Diagnosis Plan: Bone spur [...] N39.0 09/14/2019 Appointment: Jayna Vanessa WPtel: [phone] [phone] TELEMEDICINE 09/14/2019 Appointment: Jayna Vanessa WPtel: [phone] [phone] US LAB 09/11/2019 Appointment: Jayna Vanessa WPtel: [address] [place], [place] [phone] US 09/09/2019 1210--per Ally patient was to only have 1 injection, reculture urine on 09/11/19 (km) CANCELED 09/09/2019 Appointment: Jayna Vanessa WPtel: [phone] [phone] US INJECTION 09/08/2019 Appointment: Jayna Vanessa WPtel: [phone] [phone] US INJECTION 09/07/2019 Visit Diagnosis Plan: [...] ICD-10 : R35.0 09/02/2019 Appointment: Genesis Fernández [address] [place] [address] ACUTE ILLNESS 09/02/2019 Visit Diagnosis Plan: Sinusitis Discussion: instructed to start flonase daily and zyrtec daily. if no improvement next week, call clinic and may need further directions. instructed to use saline eye drops as needed to eyes to assist with dryness. ICD-9 : 473.9 ICD-10 : J32.9 07/09/2019 Appointment: Genesis Fernández [address] [place] [address] ACUTE ILLNESS 07/09/2019 Visit Diagnosis Plan: UTI (urinary tract infection) Di scussion: urine culture sent off. will start on macrobid due to symptoms. instructed to push fluids and chemo tomorrow with worsening symptoms. ICD-9 : 599.0 ICD-10 : N39.0 04/15/2019 Appointment: Jay[facility] Van[facility] WPtel: [phone] [phone] [facility] INJECTION 04/15/2019 Appointment: Genesis Fernández [address] [place], [place] [phone] ACUTE ILLNESS 04/15/2019 Visit Diagnosis Plan: Pain in right leg Discussion: ke nalog/dexa given in office. continue with flexeril prn. PT was ordered for patient due to chronic issues. call office with worsening symptoms and may need imaging. ICD-9 : 729.5 ICD-10 : M79.604 04/07/2019 Appointment: Genesis Fernández [facility] [facility] 04/07/2019 Visit Diagnosis Plan: Diverticulitis of large intestine without perforation or abscess without bleeding Discussion: Patient will call when she g ets home and verify which antibiotics she has left--needs at least another week on flagyl and thinks she only took 1 week on that ICD-9 : 562.11 ICD-10 : K57.32 03/25/2019 Appointment: Jayna Vanessa WPtel: [phone] [phone] FOLLOW UP 03/25/2019 Visit Diagnosis Plan: Cystitis Discussion: Bactrim and culture urine ICD-9 : 595.9 ICD-10 : N30.90 03/18/2019 Visit Diagnosis Plan: Abdominal pain Discussion: Cover with flagyl for colitis Elmore diet To ER this weekend if worsening Fwup 1 week ICD-9 : 789.00 ICD-10 : R10.9 03/18/2019 Appointment: Jayna Vanessa WPtel: [phone] [phone] ACUTE ILLNESS 03/18/2019 Visit Diagnosis Plan: [...] ICD-10 : R10.84 01/26/2019 Appointment: Genesis Fernández [address] [place] [address] ACUTE ILLNESS 01/26/2019 Appointment: Jayna Vanessa WPtel: [facility] [place] [phone] CANCELED 01/12/2019 Visit Diagnosis Plan: Mild intermittent asthma with (a cute) exacerbation Discussion: Kenalog 40mg IM now Prednisone stating tomorrow Start Doxycycline tonight Continue SVNs with duoneb q4hrs To ER this weekend if worsening Call Saturday on how doing ICD-9 : 466.0 ICD-10 : J45.21 01/08/2019 Appointment: Jayna Vanessa WPtel: [facility] [place] [phone] FOLLOW UP 01/08/2019 Patient Education: prednisone- OptimizeRX Coupon [phone] https://www.AirMedia.Huan Xiong/samplemd/resources/getResource/61/23944928-c1la-8945-07 Completed 01/08/2019 Visit Diagnosis Plan: Mild intermittent asthma with (a cute) exacerbation Discussion: Solumedrol 125mg IM SVN with duoneb given Continue albuterol q4hrs CXR now Recheck tomorrow ICD-9 : 466.0 ICD-10 : J45.21 01/06/2019 Appointment: Jayna Vanessa WPtel: [facility] [place] [phone] ACUTE ILLNESS 01/06/2019 Visit Diagnosis Plan: Encounter [...] : N76.0 12/11/2018 Appointment: Genesis Fernández [address] [place], [place] [address] Annual Well Visit 12/11/2018 Care Plan: RML ASSAY THYROID STIM HORMONE Pending 12/04/2018 Care Plan: RML ASSAY OF FREE THYROXINE Pe nding 12/04/2018 Care Plan: RML A1C HPLC LOINC : 50165-1 Pending 12/04/2018 Care Plan: RML LIPID PANEL LOINC : 84943 -1 Pending 12/04/2018 Care Plan: RML COMPREHEN METABOLIC PANEL LOINC : 91665-9 Pending 12/04/2018 Care Plan: QUEST CBC (INCLUDES DIFF/PLT) LOINC : 47999-5 Pending 12/04/2018 Visit Diagnosis Plan: Benign paroxysmal vertigo, bilat eral Discussion: Meclizine Vestibular Exercises To ER if worsens or develops neurological symptoms or will need CT scan if persists/worsens ICD-9 : 386.11 ICD-10 : H81.13 10/30/2018 Appointment: Jayna Vanessa WPtel: [phone] [phone] ACUTE ILLNESS 10/30/2018 Patient Education: VESTIBULAR EXCERCISES Completed 10/30/2018 Patient Education: meclizine- OptimizeRX Coupon [id number] Completed 10/30/2018 Appointment: Jayna Vanessa WPtel: [phone] [phone] US canceled due to mark going into [...] ICD-10 : R05 10/07/2018 Appointment: Stacey Feng [address] [place] [place] [address] ACUTE ILLNESS 10/07/2018 Patient Education: doxycycline hyclate- OptimizeRX [facility] [phone] https://www.AirMedia.com/samplemd/resources/getResource/61/t376xho3-k013-366g-11 Completed 10/07/2018 Care Plan: RML ASSAY OF [...] M85.80 06/23/2018 Appointment: Jayna Vanessa WPtel: [phone] [phone] US FOLLOW UP 06/23/2018 Appointment: Jayna Vanessa WPtel: [phone] ER Follow UP 01/27/2018 Visit Diagnosis Plan: Hypothyroidism, unspecified Disc ussion: Lab discussed Increase Levothyroxine to 175mcg daily then recheck level in 6 weeks Follow Up: 6 weeks ICD-9 : 244.9 ICD-10 : E03.9 01/16/2018 Visit Diagnosis Plan: Mixed hyperlipidemia Discussion: Defers statin meds ICD-9 : 272.4 ICD-10 : E78.2 01/16/2018 Appointment: Jayna Vanessa WPtel: [address] [place], [place] [phone] FOLLOW UP 01/16/2018 Patient Education: Patient Medication Summary Completed 01/16/2018 Patient Education: Patient Medication Summary Completed 01/15/2018 Care Plan: RML COMPREHEN METABOLIC PANEL LOINC : 99615-3 Pending 01/15/2018 Care Plan: RML ASSAY THYROID STIM HORMONE Pending 01/15/2018 Care Plan: RML ASSAY OF FREE THYROXINE Pe nding 01/15/2018 Care Plan: RML LIPID PANEL LOINC : 84546 -1 Pending 01/15/2018 Care Plan: CBC Pending 01/15/2018 Care Plan: RML A1C HPLC LOINC : 35216-3 Pending 01/15/2018 Appointment: Jayna Vanessa WPtel: [address] [place] [address] US CANCELED 12/26/2017 Appointment: Jayna Vanessa WPtel: [address] [place], [place] [phone] US CANCELED 10/28/2017 Visit Diagnosis Plan: Cervicalgia Discussion: xray ord ered of cervical spine and right shoulder. 40 mg kenalog/15 mg toradol prescribed to assist with pain. medrol dose pack prescribed to start tomorrow. instructed patient that if she d evelops worsening pain or no improvement, call or rtc. ICD-9 : 723.1 ICD-10 : M54.2 10/16/2017 Appointment: Genesis Fernández [address] [place], [place] [phone] ACUTE ILLNESS 10/16/2017 Patient Education: Patient Medication Summary Completed 10/16/2017 Care Plan: X-RAY EXAM NECK SPINE 4/5VWS cervical LOINC : 73897-0 Pending 10/16/2017 Visit Diagnosis Plan: Headache Discussion: Stat CT of head Dilated eye exam ICD-9 : 784.0 ICD-10 : R51 09/12/2017 Visit Diagnosis Plan: Dizziness and giddiness Discussi on: Check CBC,TSH, Free T4 now ICD-9 : 780.4 ICD-10 : R42 09/12/2017 Appointment: Jayna Vanessa WPtel: [phone] [phone] ACUTE ILLNESS 09/12/2017 Patient Education: Patient Medication Summary Completed 09/12/2017 Care Plan: CT HEAD/BRAIN W/O DYE LOINC : 18720-7 Pending 09/12/2017 Visit Diagnosis Plan: Cough Discussion: discussed cxra y and sputum results with patient and how they are negative for bacteria. patient restarted on her PPI to cover possiblity of GERD causing cough. 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 rtc with any new or worsening symptoms but continue with inhaler and nebulizer treatments as needed. ICD-9 : 786.2 ICD-10 : R05 08/20/2017 Appointment: Genesis Fernández [address] [place], [place] [phone] FOLLOW UP 08/20/2017 Patient Education: Patient Medication Summary Completed 08/20/2017 Visit Diagnosis Plan: COUGH Discussion: Check stat CXR Check Sputum culture ICD-9 : 786.2 ICD-10 : R05 08/13/2017 Appointment: Jayna Vanessa WPtel: [phone] [phone] ACUTE ILLNESS 08/13/2017 Patient Education: Patient [...] Rest, Fluids... 07/29/2017 Appointment: Jayna Vanessa WPtel: [address] [place], [place] [phone] ACUTE ILLNESS 07/29/2017 Patient Education: Patient Medication [...] ICD-10 : J09.X2 07/25/2017 Appointment: Genesis Fernández [address] [place] [address] ACUTE ILLNESS 07/25/2017 Patient Education: Patient Medication [...] M25.50 06/10/2017 Appointment: Jayna Vanessa WPtel: [address] [place], [place] [phone] ACUTE ILLNESS 06/10/2017 Patient Education: Patient Medication Summary Completed 06/10/2017 Appointment: Jayna Vanessa WPtel: [address] [place], [place] [phone] [place] Does not need appointment CANCELED 2016 Appointment: Jayna Vanessa WPtel: [address] [place], [place] [phone] US CANCELED 05/30/2017 Visit Diagnosis Plan: Acute bronchitis, unspecified Di scussion: prednisone, zpack and tessalon perles prescribed to assist with symptoms. call or RTC if no improvement. humidifier at night. hydrate well and rest. discussed side effects from prednisone including increased blood sugars and instructed to monitor. ICD-9 : 490 ICD-10 : J20.9 05/28/2017 Appointment: Genesis Fernández 504 [facility] ACUTE ILLNESS 05/28/2017 Patient Education: Patient Medication Summary Completed 05/28/2017 Visit Diagnosis Plan: Type 2 diabetes mellitus without complications Discussion: Continue current meds accuchecks daily ICD-9 : 250.00 ICD-10 : E11.9 04/04/2017 Visit Diagnosis Plan: Encounter for [facility] adult medical examination without abnormal findings Discussion: Flu and Pneumovax given Mamm ogram ordered Lab discussed ICD-9 : V70.9 ICD-10 : Z00.00 04/04/2017 Appointment: Jayna Vanessa WPtel: [phone] [phone] Annual Well Visit 04/04/2017 Patient Education: Patient Medication Summary Completed 04/04/2017 Care Plan: MAMMOGRAM SCREENING LOINC : 2 6347-5 Pending 04/04/2017 Patient Education: Patient Medication Summary Completed 03/21/2017 Care Plan: RML COMPREHEN METABOLIC PANEL LOINC : 03315-1 Pending 03/21/2017 Care Plan: RML ASSAY THYROID STIM HORMONE Pending 03/21/2017 Care Plan: RML ASSAY OF FREE THYROXINE Pe nding 03/21/2017 Care Plan: CBC Pending 03/21/2017 Care Plan: RML A1C HPLC LOINC : 44358-4 Pending 03/21/2017 Visit Diagnosis Plan: Mixed hyperlipidemia Discussion: Continue current meds Follow Up: 6 months ICD-9 : 272.4 ICD-10 : E78.2 11/28/2016 Visit Diagnosis Plan: Hypothyroidism, unspecified Disc ussion: Continue current dose ICD-9 : 244.9 ICD-10 : E03.9 11/28/2016 Visit Diagnosis Plan: Sjypf-8-dvwnwluehab deficiency D iscussion: Continue weekly injections ICD-9 : 273.4 ICD-10 : E88.01 11/28/2016 Visit Diagnosis Plan: Sebaceous cyst Discussion: Emily daniel eal Discussed removal ICD-9 : 706.2 ICD-10 : L72.3 11/28/2016 Appointment: Jayna Vanessa WPtel: [address] [phone] 6/6 rang and rang on home phone and mobile confirmed~sl FOLLOW UP 11/28/2016 Patient Education: Patient Medication Summary Completed 11/28/2016 Patient Education: Patient Medication Summary Completed 11/20/2016 Referral: Tom Mcrae WPtel: [address] [facility] [place] 440 [id number] US Referral Initiated 07/05/2016 Visit Plan: Start with CT abdomen/pelvis Will need EGD and Colonoscopy so will refer to Dr. Pina Obtain most recent lab results 06/05/2016 Appointment: Jayna Vanessa WPtel: [phone] [phone] ACUTE ILLNESS 06/05/2016 Patient Education: Patient Medication Summary Completed 06/05/2016 Care Plan: CT PELVIS W/O DYE LOINC : 361 08-9 Pending 06/05/2016 Care Plan: CT ABDOMEN W/O DYE LOINC : 36 103-0 Pending 06/05/2016 Care Plan: Referral Order SNOMED-CT : [phone] [id number] Pending 06/05/2016 App[facility]ment: Jay[facility]el[facility] [phone] [phone] [facility] INJECTION 05/01/2016 Patient Education: Patient Medication Summary Completed 05/01/2016 Patient Education: Patient Medication Summary Completed 04/26/2016 Care Plan: RML COMPREHEN METABOLIC PANEL LOINC : 46624-3 Pending 04/26/2016 Care Plan: RML ASSAY THYROID STIM HORMONE Pending 04/26/2016 Care Plan: RML ASSAY OF FREE THYROXINE Pe nding 04/26/2016 Care Plan: RML A1C HPLC LOINC : 90956-4 Pending 04/26/2016 Referral: Aditya Stone WPtel: [address] [facility] [address] [id number] Arrival time is 10:00 Am~sl Appointment Confirme d 11/25/2015 Visit Plan: Had fasting lab done this AM Continue PT for right shoulder Continue current meds Referral to Dr. Temo Stone for incontinence 11/08/2015 Appointment: Jayna Vanessa WPtel: [phone] 11/06 confirmed-sp FOLLOW UP 11/08/2015 Patient Education: Patient Medication Summary Completed 11/08/2015 Appointment: Jayna Vanessa WPtel: [address] [place], [place] [phone] 10/19 rescheduled ~sl RESCHEDULED 10/24/2015 Appointment: Jayna Vanessa WPtel: [address] [place], [place] [phone] [place] 10/10rang and rang ~sl RESCHEDULED 6 Patient Education: Patient Medication Summary Completed 10/12/2015 Care Plan: RML COMPREHEN METABOLIC PANEL LOINC : 97130-7 Pending 10/12/2015 Care Plan: RML ASSAY THYROID STIM HORMONE Pending 10/12/2015 Care Plan: RML ASSAY OF FREE THYROXINE Pe nding 10/12/2015 Care Plan: RML LIPID PANEL LOINC : 94173 -1 Pending 10/12/2015 Care Plan: CBC Pending 10/12/2015 Care Plan: RML A1C HPLC LOINC : 59355-6 Pending 10/12/2015 Care Plan: VITAMIN D TOTAL (25 HYDROXY) P ending 10/12/2015 Appointment: Jayna Vanessa WPtel: [address] [place], [place] [phone] [place] CANCELED 09/22/2015 Visit Plan: Lab discussed Change thyroid med back to brand synthroid and recheck thyroid lab in 3mos 07/19/2015 Appointment: Jayna Vanessa WPtel: [phone] 07/18/15 appt confirmed cn FOLLOW UP 07/19 Patient Education: Patient Medication Summary Completed 07/19/2015 Patient Education: Patient Medication Summary Completed 07/12/2015 Visit Plan: Lab discussed Change synthro id to 150mcg all days but M, W, F will change to 175mcg Check Lab and fwup in 3mos Flu shot given 03/28/2015 Appointment: Jayna Vanessa WPtel: [address] [place], [place] [phone] 03/25 rang for 1:40 seconds 03/28/ appt confirmed cn FOLLOW UP 03/28/2015 Patient Education: Patient Medication Summary Completed 03/28/2015 Patient Education: Patient Medication Summary Completed 03/21/2015 Visit Plan: Continuue fluoxetine at high er dose Increase synthroid to 150mcg as ordered Decrease propranolol to 20mg po BID Check thyroid lab and fwup in 2mos Prevnar 13 given 02/08/2015 Appointment: Jayna Vanessa WPtel: [address] [place], [place] [phone] FOLLOW UP 02/08/2015 Patient Education: Patient Medication Summary Completed 02/08/2015 Visit Plan: Check CBC, CMP, TSH, Free T4 , uric acid, lactate now Increase fluoxetine to 40mg daily Recheck in 1month Notify if worsening Culture urine 01/11/2015 Appointment: Jayna Vanessa WPtel: [address] [place], [place] [phone] ACUTE ILLNESS 01/11/2015 Patient Education: Patient Medication Summary Completed 01/11/2015 Visit Plan: Lab discussed Accuchecks lucian ly Medrol dose pack Rx for back brace 11/24/2014 Appointment: Jayna Vanessa WPtel: [address] [place], [place] [phone] 11/23 confirmed -mf FOLLOW UP 11/24/2014 Patient Education: Patient Medication Summary Completed 11/24/2014 Appointment: Galina Leos WPtel: [address] [place], [place] [phone] ER Follow UP 11/19/2014 Patient Education: Patient Medication Summary Completed 11/19/2014 Appointment: Conchita Capone WPtel: [address] [place] [address] ACUTE ILLNESS 10/27/2014 Patient Education: Patient Medication Summary Completed 10/27/2014 Patient Education: [facility] - Saving AutoInj - 18+ - Dynamic Portal ID Completed 10/27/2014 Appointment: Conchita Capone WPtel: [address] [place], [place] [phone] ACUTE ILLNESS 09/23/2014 Patient Education: Patient Medication Summary Completed 09/23/2014 Visit Plan: Lab discussed Continue curre nt meds 07/28/2014 Appointment: Jayna Vanessa WPtel: [address] [place], [place] [phone] 07/27 FOLLOW UP 07/28/2014 Patient Education: Patient Medication Summary Completed 07/28/2014 Patient Education: Patient Medication Summary Completed 07/21/2014 Patient Education: Patient Medication Summary Completed 04/27/2014 Appointment: Jayna Vanessa WPtel: [address] [place], [place] [phone] 03/29 FOLLOW UP 03/30/2014 Patient Education: Patient Medication Summary Completed 03/30/2014 Patient Education: [facility] - Saving AutoInj - 18+ - Dynamic Portal ID Completed 03/30/2014 Visit Plan: Lab discussed DC Vytorin Tri al of Lipitor 80mg q HS Continue Trilipix Check Lipids/CMP/thyroid and HbA1C in 4mos then fwup 11/24/2013 Appointment: Jayna Vanessa WPtel: [address] [place], [place] [phone] FOLLOW UP 11/24/2013 Patient Education: Patient Medication Summary Completed 11/24/2013 Patient Education: [facility] - Saving AutoInj - 18+ - Dynamic Portal ID Completed 11/24/2013 Visit Plan: Lab discussed Daily accuchec ks Cont current meds 08/25/2013 Appointment: Jayna Vanessatel: [address] [place], [place] [phone] 08/24 FOLLOW UP 08/25/2013 Patient Education: Patient Medication Summary Completed 08/25/2013 Appointment: Jayna Vanessa WPtel: [address] [place], [place] [phone] FOLLOW UP 08/05/2013 Visit Plan: Continue Wellbutrin/Fluoxeti ne Fasting lab and fwup in 2mos 06/29/2013 Appointment: Jayna Vanessa WPtel: [address] [place], [place] [phone] 06/26 [place] [facility] 06/29/2013 Patient Education: Patient Medication Summary Completed 06/29/2013 Visit Plan: Increase Wellbutrin to 300mg daily Add fluoxetine 20mg daily 05/26/2013 Appointment: Jayna Vanessa WPtel: [address] [place], [place] [phone] FOLLOW UP 05/26/2013 Patient Education: Patient Medication Summary Completed 05/26/2013 Visit Plan: OK to proceed with planned [facility] surgery next week Continue current meds Check fasting lab--CBC, CMP, TSH, free T4, HbA1C, Lipids, Vit D at end of this week prior to surgery 05/06/2013 Appointment: Jayna Vanessa WPtel: [address] [place], [place] [phone] FOLLOW UP 05/06/2013 Patient Education: Patient Medication Summary Completed 05/06/2013 Appointment: Jayna Vanessa WPtel: [address] [place], [place] [phone] ACUTE ILLNESS 04/23/2013 Patient Education: Patient Medication Summary Completed 04/23/2013 Patient Education: [facility] - Saving AutoInj - 18+ - Dynamic Portal ID Completed 04/23/2013 Visit Plan: Decrease Lasix to 20mg daily Leave potassium at 20meq daily Check Chem 7 in 1wk 03/31/2013 Appointment: Jayna Vanessa WPtel: [address] [place], [place] [phone] FOLLOW UP 03/31/2013 Patient Education: Patient Medication Summary Completed 03/31/2013 Appointment: Conchita Capone WPtel: [address] [place], [place] [phone] ACUTE ILLNESS 03/05/2013 Patient Education: Patient Medication Summary Completed 03/05/2013 Visit Plan: Lab discussed Continue curre nt meds Pt is going to start allergy injections Go for port placement to continue prolastin infusions 02/04/2013 Appointment: Jayna Vanessa WPtel: [address] [place], [place] [phone] ACUTE ILLNESS 02/04/2013 Patient Education: Patient Medication Summary Completed 02/04/2013 Visit Plan: 2-D ECHO discussed See Pulmo nology Pt states cough had went away with allergy meds and then has came back Continue allergy meds and add pepcid BID Discussed allergy testing 11/27/2012 Appointment: Jayna Vanessa WPtel: [phone] FOLLOW UP 11/27/2012 Patient Education: Patient Medication Summary Completed 11/27/2012 Visit Plan: PFTS discussed Proceed with 2-D ECHO and pulmonology evaluation Pt was concerned propranolol could be cause but discussed this is likely not culpri HOMERO was DCed in 2009, is on PPI, has seen ENT, will restart allergy meds--may need allergy testing 11/11/2012 Appointment: Jayna Vanessa WPtel: [phone] FOLLOW UP 11/11/2012 Patient Education: Patient Medication Summary Completed 11/11/2012 Visit Plan: Hold metformin Check CMP, Li pids, TSH, Free T4, HbA1C Check PFTs 10/20/2012 Appointment: Jayna Vanessa WPtel: [address] [place], [place] [phone] 10/17 left message FOLLOW UP 10/20/2012 Patient Education: Patient Medication Summary Completed 10/20/2012 Appointment: Jayna Vanessa WPtel: [address] [place], [place] [phone] 10/13 FOLLOW UP 10/14/2012 Visit Plan: Discussed fluids and rest. W ill monitor for worsening symptoms/fever. Azithromycin, medrol dose pack and refil on cough syrup. Pt. will notify if symptoms worsen or persist. 09/03/2012 Appointment: Lizzie Kelly WPtel: [address] [place], [place] [phone] ACUTE ILLNESS 09/03/2012 Patient Education: Patient Medication Summary Completed 09/03/2012 Visit Plan: discussed that symptoms star edvin around Lion time. Will begin culturelle BID and monitor for fever or worsening symptoms. Fluid intake important. CBC, CMP, sed rate and stool studies. Order written for Mag lab. 07/23/2012 Appointment: Lizzie Kelly WPtel: [address] [place], [place] [phone] ACUTE ILLNESS 07/23/2012 Patient Education: Patient Medication Summary Completed 07/23/2012 Visit Plan: Increase Metformin to 1000mg po BID Accuchecks daily Continue rest of meds at current dose and low-fat, low-sugar diet with increased exercise Check fasting lab in 4mos Restart Nexium 05/20/2012 Appointment: Jayna Vanessa WPtel: [address] [place], [place] [phone] patient had bad night so missed 05/06 appt...left voicemail 05/19 FOLLOW UP 05/20/2012 Patient Education: Patient Medication Summary Completed 05/20/2012 Appointment: Jayna Vanessa WPtel: [address] [place], [place] [phone] patient had bad night so missed 05/06 appt time. cn FOLLOW UP 05/06/2012 Appointment: Galina Leos WPtel: [address] [place], [place] [phone] ACUTE ILLNESS 04/04/2012 Patient Education: Patient Medication Summary Completed 04/04/2012 Visit Plan: Cryotherapy as above 02/20/2012 Appointment: Jayna Vanessa WPtel: [address] [place], [place] [phone] 02/18 OFFICE SURGERY 02/20/2012 Patient Education: Patient Medication Summary Completed 02/20/2012 Visit Plan: Increase Metfromin to 1000mg daily Continue all other current meds 01/02/2012 Appointment: Jayna Vanessa WPtel: [address] [place], [place] [phone] FOLLOW UP 01/02/2012 Patient Education: Patient Medication Summary Completed 01/02/2012 Appointment: Lizzie Kelly WPtel: [address] [place] [address] ACUTE ILLNESS 09/04/2011 Patient Education: Patient Medication Summary Completed 09/04/2011 Visit Plan: Finish Keflex Proceed with c olonoscopy Increase aspirin to 325mg daily for next 2wks Add Vimovo 20/500mg po Daily 08/14/2011 Appointment: Jayna Vanessa WPtel: [address] [place], [place] [phone] [facility] Follow Up 08/14/2011 Patient Education: Patient Medication Summary Completed 08/14/2011 Appointment: Lizzie Kelly WPtel: [address] [place], [place] [phone] ACUTE ILLNESS 07/31/2011 Patient Education: Patient Medication Summary Completed 07/31/2011 Visit Plan: Doxy and steroids. Codeine/g uiaf cough syrup. Pt. will monitor for worsening symptoms and notify if fever occurs. Encouraged rest and fluids. 07/25/2011 Appointment: Lizzie Kelly WPtel: [address] [place], [place] [phone] ACUTE ILLNESS 07/25/2011 Patient Education: Patient Medication Summary Completed 07/25/2011 Visit Plan: Check full lab in 3mos Radha nue with all current meds Continue PT for knee 07/12/2011 Appointment: Jayna Vanessa WPtel: [address] [place], [place] [phone] FOLLOW UP 07/12/2011 Patient Education: Patient Medication Summary Completed 07/12/2011 Visit Plan: Continue symbicort for 2 mor e weeks 05/09/2011 Appointment: Jayna Vanessa WPtel: [address] [place], [place] [phone] FOLLOW UP 05/09/2011 Patient Education: Patient Medication Summary Completed 05/09/2011 Appointment: Jayna Vanessa WPtel: [address] [place], [place] [phone] ER Follow UP 05/02/2011 Patient Education: Patient Medication Summary Completed 05/02/2011 Visit Plan: Pt. has recently finished ro und of Cefdinir with no improvement. Chest x-ray, CBC, CMP and mycoplasma order given to pt. Pt. will start Doxycycline. 04/25/2011 Appointment: Lizzie Kelly WPtel: [address] [place] [address] FOLLOW UP 04/25/2011 Patient Education: Patient Medication Summary Completed 04/25/2011 Appointment: Lizzie Kelly WPtel: [address] [place] [address] ACUTE ILLNESS 04/04/2011 Patient Education: Patient Medication Summary Completed 04/04/2011 Appointment: Lizzie Kelly WPtel: [address] [place], [place] [phone] ACUTE ILLNESS 04/03/2011 Visit Plan: Decrease Synthroid to 150mcg daily Repeat TSH and Free T4 in 2mos Knee injection as above 03/01/2011 Appointment: Jayna Vanessa WPtel: [address] [place], [place] [phone] 03/01/2011 Patient Education: Patient Medication Summary Completed 03/01/2011 Visit Plan: Increase Synthroid to 175mcg po daily Check TSH, Free T4 in 8wks Injection given to knee as above Continue Pt 01/04/2011 Appointment: Jayna Vanessa WPtel: [address] [place], [place] [phone] FOLLOW UP 01/04/2011 Patient Education: Patient Medication Summary Completed 01/04/2011 Visit Plan: Septra DS, Mupirocin topical . Pt. will observe wound and report worsening symptoms. 12/07/2010 Appointment: Lizzie Kelly WPtel: [address] [place], [place] [phone] ACUTE ILLNESS 12/07/2010 Patient Education: Patient Medication Summary Completed 12/07/2010 Visit Plan: Increase Synthroid to 150mcg po daily Add Metformin Diet and exercise discussed at length again Repeat thyroid US Add Vit D level Will see if polydipsia improves with metformin 10/09/2010 Appointment: Jayna Vanessa WPtel: [address] [place], [place] [phone] FOLLOW UP 10/09/2010 Patient Education: Patient Medication Summary Completed 10/09/2010 Visit Plan: Increase Synthroid to 125mcg daily Decrease Vit D 50,000 u three times a week Discussed HRT Proceed with sleep study Fwup pending sleep study results 08/07/2010 Appointment: Jayna Vanessa WPtel: [address] [place], [place] [phone] FOLLOW UP 08/07/2010 Patient Education: Patient Medication Summary Completed 08/07/2010 Visit Plan: Decrease Synthroid to 100mcg QD Check thyroid lab in 2mos Check estradiol levels in 2mos--discussed HRT Increase Vit D 50,000u to 1 daily M-F 06/06/2010 Appointment: Jayna Vanessa WPtel: [address] [place], [place] [phone] ACUTE ILLNESS 06/06/2010 Patient Education: Patient Medication Summary Completed 06/06/2010 Visit Plan: Injections to knees as above 04/12/2010 Appointment: Jayna Vanessal: [address] [place], [place] [phone] OFFICE SURGERY 04/12/2010 Patient Education: Patient Medication Summary Completed 04/12/2010 Visit Plan: Decrease Synthroid to 175mcg QD Check lab in 2mos Change daily Vit D to weekly 03/20/2010 Appointment: Jayna Vanessa WPtel: [address] [place], [place] [phone] ESTABLISHED PATIENT 03/20/2010 Patient Education: Patient Medication Summary Completed 03/20/2010 Appointment: Jayna Vanessa WPtel: [address] [place], [place] [phone] ACUTE ILLNESS 01/30/2010 Patient Education: Patient Medication Summary Completed 01/30/2010 Appointment: Jayna Vanessa WPtel: [address] [place], [place] [phone] ACUTE ILLNESS 01/09/2010 Patient Education: Patient Medication Summary Completed 01/09/2010 Appointment: Jayna Vanessa WPtel: [address] [place], [place] [phone] BP CHECK 11/07/2009 Patient Education: Patient Medication Summary Completed 11/07/2009 Appointment: Jayna Vanessa WPtel: [address] [place], [place] [phone] OFFICE SURGERY 10/26/2009 Patient Education: Patient Medication Summary Completed 10/26/2009 Appointment: Lizzie Kelly WPtel: [address] [place], [place] [phone] OFFICE SURGERY 10/17/2009 Patient Education: Patient Medication [...] up appnt. 10/04/2009 Appointment: Lizzie Kelly WPtel: [address] [place], [place] [phone] ACUTE ILLNESS 10/04/2009 Patient Education: Patient Medication Summary Completed 10/04/2009 Visit Plan: E-scribed refils. Pt. report s that she normally has lab work drawn and orders are given (faxed) to her normal lab facility by Patricia. Pt. states her migraine headaches have abated for now and that she is going to see her migraine doctor in [place] in the near future(Dr Cook) Pt will seek re-eval as necessary for acute issues. 09/21/2009 Appointment: Lizzie Kelly WPtel: [address] [place], [place] [phone] [place] CHECK UP 09/21/2009 Patient Education: Patient Medication Summary Completed 09/21/2009 Appointment: Lizzie Kelly WPtel: [address] [place], [place] [phone] [place] CHECK UP 09/20/2009 Appointment: Lizzie Kelly WPtel: [address] [place], [place] [phone] [place] FOLLOW UP 09/19/2009 Referral: lAf Lang WPtel: [address] [facility] [place] Referral Appointment Requested Referral: Singh Pina WPtel: [address] [facility] [place] Referral Appointment Requested Referral: Aditya Stone WPtel: [address] [facility] [address] [id number] [place] Referral Appointment Requested Instructions Comment Date [...] going to see her migraine doctor in [place] in the near future(Dr Cook) Pt will [...]
--- OUTSIDE RECORDS SUMMARY | 2022-09-10 17:08 | XMS REPORT | CCD ---
Author Author Marcella Vanessa D.O. 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 Role Phone Jayna Vanessa D.O., PP Unavailable CCM Unavailable Summary Purpose Interface Exchange Insurance Providers Payer name Policy type / Coverage type Covered republican ID Effective Begin Date Effective End Date AETNA Commercial Insurance [id number] Unknown Commercial Insurance [id number] Unknown Family history Side Diagnosis Age At Onset Heart disease Unknown Diabetes Unknown Sister Diagnosis Age At Onset Diabetes Unknown Brother Diagnosis Age At Onset Diabetes Unknown Mother Diagnosis Age At Onset Heart disease Unknown Father Diagnosis Age At Onset Heart disease Unknown Social History Social History Element Codes Description Effective Dates Tobacco history SNOMED CT: 687855063 Never smoker 04/04/2011 Marital status Unknown 09/21/2009 [...] gastroenteritis ICD-10: K52.9 ICD-9: 558.9 07/05/2020 Active 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 11/28/2016 Active [...] ANXIETY STATE NOS ICD-9: 300.00 03/05/2013 Active Nshyx-4-fkbbqsmlpzr 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 02/04/2013 A ctive DYSPNEA [...] Fill Instructions ciprofloxacin 250 mg tablet RxNorm: 884679 Take 1 Tablet(s) Ora l Q12H 06/29/2022 07/03/2022 Inactive levothyroxine 150 mcg tablet RxNorm: 802841 Take 1 Tablet(s) Or al QAM 06/03/2022 08/01/2022 Inactive Wellbutrin XL 300 mg 24 hr tablet, extended release RxNorm: 305375 Take 1 Tablet(s) Oral QAM replaces 150mg dose 05/28/2022 08/25/2022 Active Xyzal 5 mg tablet RxNorm: 071789 Take 1 Tablet(s) Oral QPM 05/10/2010/06/2022 Active Claritin 10 mg tablet RxNorm: 492411 Take 1 Tablet(s) Oral QAM 04/2409/06/2022 Active Flonase Allergy Relief 50 mcg/actuation nasal spray,suspensi on RxNorm: 4911957 Take 1 Markesan Nasal two times a day 05/10/2022 06/08/2022 Inactive Wellbutrin XL 150 mg 24 hr tablet, extended release RxNorm: 577970 Take 1 Tablet(s) Oral QAM 05/10/2022 05/27/2022 Inactive sumatriptan 100 mg tablet RxNorm: 885568 1 Tablet(s) Or al after onset of migraine; may repeat after 2 hours if headache returns, not to exceed 200mg in 24hrs replaces rizatriptan 04/19/2022 04/19/2022 Inactive sumatriptan 100 mg tablet RxNorm: 044725 1 Tablet(s) Or al after onset of migraine; may repeat after 2 hours if headache returns, not to exceed 200mg in 24hrs replaces rizatriptan 04/19/2022 04/19/2022 Inactive propranolol 20 mg tablet RxNorm: 410538 TAKE 1 TABLET BY MOUTH TWICE DAILY 04/18/2022 10/14/2022 Active rizatriptan 10 mg disintegrating tablet RxNorm: 368545 Take 1 Tablet(s) Oral on top of tongue, allow to dissolve then swallow once, may repeat every 2 hrs; max 30 mg/24hrs 04/18/2022 04/18/2022 Inactive prednisone 20 mg tablet RxNorm: 133095 Take 1 Tablet(s) Oral tw o times a day 02/15/2022 02/21/2022 Inactive Nurtec ODT 75 mg disintegrating tablet RxNorm: 0160639 T ary 1 Tablet(s) Oral per 24 hours as needed for migraine 02/09/2022 02/09/2022 Inactive Nurtec ODT 75 mg disintegrating tablet RxNorm: 6436874 T ary 1 Tablet(s) Oral per 24 hours as needed for migraine 02/09/2022 02/09/2022 Inactive fluticasone propionate 50 mcg/actuation nasal spray,suspensi on RxNorm: 6302158 SPRAY ONE SPRAY IN EACH NOSTRIL TWICE DAILY NEEDED 02/05/20222021 Inactive levothyroxine 150 mcg tablet RxNorm: 448694 Take 1 Tablet(s) Or al QAM 02/04/2022 02/04/2022 Inactive albuterol sulfate HFA 90 mcg/actuation aerosol inhaler RxNor m: 4803321 Inhale 2 Puff(s) Oral Q4H as needed 01/05/2022 04/04/2022 Inactive pantoprazole 40 mg tablet,delayed release RxNorm: 208797 Take 1 Tablet(s) Oral QD 01/04/2022 07/02/2022 Inactive propranolol 20 mg tablet RxNorm: 405984 TAKE 1 TABLET BY MOUTH TWICE DAILY 01/04/2022 04/17/2022 Inactive levothyroxine 150 mcg tablet RxNorm: 375237 Take 1 Tablet(s) Or al QAM 12/05/2021 12/05/2021 Inactive metronidazole 500 mg tablet RxNorm: 646244 Take 1 Table t(s) Oral two times a day 11/29/2021 12/05/2021 Inactive Singulair 10 mg tablet RxNorm: 456696 Take 1 Tablet(s) Oral QPM 06/202105/09/2022 Inactive Diflucan 100 mg tablet RxNorm: 705361 Take 1 Tablet(s) Oral QD 06/202111/28/2021 Inactive pantoprazole 40 mg tablet,delayed release RxNorm: 085885 Take 1 Tablet(s) Oral QD 11/06/2021 11/06/2021 Inactive fluticasone propionate 50 mcg/actuation nasal spray,suspensi on RxNorm: 8906389 SPRAY ONE SPRAY IN EACH NOSTRIL TWICE DAILY NEEDED 11/03/20212021 Inactive scopolamine 1 mg over 3 days transdermal patch RxNorm: 69517 2 Apply 1 Unit Dose Transdermal Q72H behind ear 10/30/2021 02/05/2022 Inactive albuterol sulfate HFA 90 mcg/actuation aerosol inhaler RxNor m: 5981185 Inhale 2 Puff(s) Oral Q4H as needed 10/05/2021 11/24/2021 Inactive pantoprazole 40 mg tablet,delayed release RxNorm: 885397 Take 1 Tablet(s) Oral QD 10/05/2021 10/05/2021 Inactive meloxicam 7.5 mg tablet RxNorm: 661304 Take 1 Tablet(s) Oral QD for pain 09/05/2021 09/11/2021 Inactive baclofen 10 mg tablet RxNorm: 916988 Take 0.5-1 Tablet( s) Oral three times per week as needed for muscle spasm 09/05/2021 02/05/2022 Inactive prednisone 20 mg tablet RxNorm: 618649 Take 1 Tablet(s) Oral QD 08/202108/28/2021 Inactive pantoprazole 40 mg tablet,delayed release RxNorm: 392505 Take 1 Tablet(s) Oral QD 07/07/2021 09/04/2021 Inactive fluticasone propionate 50 mcg/actuation nasal spray,suspensi on RxNorm: 5375400 Take 1 Markesan Nasal two times a day in each nostrilas needed 07/04/2021 10/01/2021 Inactive Decadron 6 mg tablet RxNorm: 747311 Take 1 Tablet(s) Oral QD 202107/08/2021 Inactive albuterol sulfate HFA 90 mcg/actuation aerosol inhaler RxNor m: 4571446 Inhale 2 Puff(s) Oral Q4H as needed 06/08/2021 09/05/2021 Inactive propranolol 20 mg tablet RxNorm: 708701 TAKE 1 TABLET BY MOUTH TWICE DAILY 06/08/2021 06/08/2021 Inactive pantoprazole 40 mg tablet,delayed release RxNorm: 356620 Take 1 Tablet(s) Oral QD 04/09/2021 06/07/2021 Inactive ProAir HFA 90 mcg/actuation aerosol inhaler RxNorm: 263452 2 Puff(s) Inhalation Q4H as needed 03/13/2021 03/13/2021 Inactive citalopram 10 mg tablet RxNorm: 182396 1 Tablet(s) Oral two antonio es a day 03/13/2021 02/05/2022 Inactive levothyroxine 150 mcg tablet RxNorm: 863548 TAKE 1 Tabl et BY MOUTH EVERY MORNING (REPLACES 137 MCG DOSE) 03/09/2021 03/09/2021 Inactive pantoprazole 40 mg tablet,delayed release RxNorm: 359008 Take 1 Tablet(s) Oral QD 02/08/2021 04/08/2021 Inactive triamcinolone acetonide 0.1 % topical cream RxNorm: 8572377 Take Application Topical two times a day to arm rash 01/19/2021 01/19/2021 Inactive prednisone 20 mg tablet RxNorm: 972028 Take 1 Tablet(s) Oral QD 01/23/2021 Inactive levothyroxine 150 mcg tablet RxNorm: 537824 Take 1 Tabl et(s) Oral QAM replaces 137mcg dose 01/03/2021 01/03/2021 Inactive prednisone 20 mg tablet RxNorm: 423242 Take 2 Tablet(s) Oral QD 01/202112/03/2020 Inactive promethazine-DM 6.25 mg-15 mg/5 mL oral syrup RxNorm: 768949 Take 5 Milliliter(s) Oral Every 6 hours as needed, not to exceed 30 mL in 24 hours 11/29/2020 12/03/2020 Inactive doxycycline hyclate 100 mg capsule RxNorm: 0285838 1 Cap kimi(s) Oral two times a day 09/29/2020 10/05/2020 Inactive Laltia-D 12 Hour 60 mg-120 mg tablet,extended release RxNor m: 178583 1 Tablet(s) Oral QD 09/19/2020 10/03/2020 Inactive ProAir HFA 90 mcg/actuation aerosol inhaler RxNorm: 514015 2 Inhalation Q4H as needed 09/19/2020 09/19/2020 Inactive propranolol 20 mg tablet RxNorm: 851810 TAKE 1 TABLET BY MOUTH TWICE DAILY 09/15/2020 09/15/2020 Inactive pantoprazole 40 mg tablet,delayed release RxNorm: 532675 1 Tabl et(s) Oral QD 09/09/2020 09/08/2020 Inactive pantoprazole 40 mg tablet,delayed release RxNorm: 409500 1 Tabl et(s) Oral QD 09/09/2020 11/07/2020 Inactive propranolol 20 mg tablet RxNorm: 923700 TAKE 1 TABLET BY MOUTH TWICE DAILY 08/24/2020 09/09/2020 Inactive levothyroxine 137 mcg tablet RxNorm: 966586 1 Tablet(s) Oral QD 08/202001/02/2021 Inactive mldxqcuv-zpnwchnzc-zwyeseuy 3.5 mg/mL-10,000 unit/mL-0 .1% eye drops RxNorm: 836413 4 Drop(s) Otic three times a day 08/10/2020 02/05/2022 Inactive prednisone 20 mg tablet RxNorm: 446312 1 Tablet(s) Oral two antonio es a day 08/01/2020 08/08/2020 Inactive pantoprazole 40 mg tablet,delayed release RxNorm: 574683 1 Tabl et(s) Oral QD 07/13/2020 09/08/2020 Inactive ondansetron HCl 4 mg tablet RxNorm: 394444 1 Tablet(s) Oral Q4H as needed for nausea 07/13/2020 05/09/2022 Inactive levothyroxine 137 mcg tablet RxNorm: 699101 1 Tablet(s) Oral QD 08/23/2020 Inactive pantoprazole 40 mg tablet,delayed release RxNorm: 218455 1 Tabl et(s) Oral QD 07/13/2020 07/12/2020 Inactive ondansetron HCl 4 mg tablet RxNorm: 244861 1 Tablet(s) Oral Q4H as needed for nausea 07/05/2020 07/12/2020 Inactive Flagyl 500 mg tablet RxNorm: 271172 1 Tablet(s) Oral three time s a day 07/05/2020 07/12/2020 Inactive Fish Oil 1,000 mg (120 mg-180 mg) capsule RxNorm: 1 Caps ule(s) Oral QD 06/23/2020 09/18/2020 Inactive rosuvastatin 10 mg tablet RxNorm: 678045 1 Tablet(s) Oral MWF 06/2306/22/2020 Inactive rosuvastatin 10 mg tablet RxNorm: 173249 1 Tablet(s) Oral MWF 06/2302/05/2022 Inactive fluconazole 100 mg tablet RxNorm: 833771 1 Tablet(s) Oral QOD 05/1706/21/2020 Inactive Macrobid 100 mg capsule RxNorm: 558814 1 Capsule(s) Oral two ti mes a day 05/17/2020 05/24/2020 Inactive levothyroxine 137 mcg tablet RxNorm: 713868 TAKE 1 TABLET BY [facility] ONCE DAILY 05/16/2020 07/12/2020 Inactive Eliquis 5 mg tablet RxNorm: 5557979 1 Tablet(s) Oral two times a da y 04/25/2020 02/05/2022 Inactive propranolol 20 mg tablet RxNorm: 904614 TAKE 1 TABLET BY MOUTH TWICE DAILY 04/25/2020 08/23/2020 Inactive doxycycline hyclate 100 mg capsule RxNorm: 7216503 1 Cap kimi(s) Oral two times a day 03/24/2020 03/31/2020 Inactive doxycycline hyclate 100 mg capsule RxNorm: 6792334 1 Cap kimi(s) Oral two times a day 03/24/2020 03/23/2020 Inactive propranolol 20 mg tablet RxNorm: 686011 TAKE 1 TABLET BY MOUTH TWICE DAILY 03/15/2020 04/13/2020 Inactive Eliquis 5 mg tablet RxNorm: 3140704 1 Tablet(s) Oral two times a da y 03/14/2020 04/24/2020 Inactive Eliquis 5 mg tablet RxNorm: 9277226 1 Tablet(s) Oral two times a da y 03/14/2020 03/13/2020 Inactive levofloxacin 500 mg tablet RxNorm: 982646 1 Tablet(s) Oral QD 02/1802/26/2020 Inactive levofloxacin 500 mg tablet RxNorm: 180589 1 Tablet(s) Oral QD 02/1802/18/2020 Inactive Tessalon Perles 100 mg capsule RxNorm: 082842 1 Capsule (s) Oral three times a day as needed 02/16/2020 02/25/2020 Inactive levothyroxine 137 mcg tablet RxNorm: 325085 TAKE 1 TABLET BY [facility] ONCE DAILY 02/15/2020 03/15/2020 Inactive ProAir HFA 90 mcg/actuation aerosol inhaler RxNorm: 922568 2 Inhalation Q4H as needed 02/11/2020 09/18/2020 Inactive Medrol (Isaiah) 4 mg tablets in a dose pack RxNorm: 172463 Tablet( s) Oral 02/11/2020 02/11/2020 Inactive levothyroxine 137 mcg tablet RxNorm: 940507 TAKE 1 TABLET BY [facility] ONCE DAILY 12/16/2019 01/14/2020 Inactive propranolol 20 mg tablet RxNorm: 584885 TAKE 1 TABLET BY MOUTH TWICE DAILY 12/16/2019 01/14/2020 Inactive levothyroxine 137 mcg tablet RxNorm: 286790 TAKE 1 TABLET BY [facility] ONCE DAILY 10/16/2019 11/14/2019 Inactive prednisone 20 mg tablet RxNorm: 047830 1 Tablet(s) Oral two times a day for rash/hives 09/29/2019 10/04/2019 Inactive Probiotic 10 billion cell capsule RxNorm: 8439489 1 Capsule(s) O ral QD 09/14/2019 02/10/2020 Inactive Bactrim DS 800 mg-160 mg tablet RxNorm: 849660 1 Tablet(s) Oral two times a day 09/14/2019 09/13/2019 Inactive citalopram 10 mg tablet RxNorm: 400112 1 Tablet(s) Oral two antonio es a day 09/14/2019 12/20/2019 Inactive hydroxychloroquine 200 mg tablet RxNorm: 671504 1 Table t(s) Oral two times a day 09/14/2019 02/05/2022 Inactive Bactrim DS 800 mg-160 mg tablet RxNorm: 347890 1 Tablet(s) Oral two times a day 09/14/2019 09/24/2019 Inactive Cipro 250 mg tablet RxNorm: 359254 1 Tablet(s) Oral two times a day 09/02/2019 09/08/2019 Inactive levothyroxine 137 mcg tablet RxNorm: 145936 1 Tablet(s) Oral QD 10/10/2019 Inactive levothyroxine 137 mcg tablet RxNorm: 172736 1 Tablet(s) Oral QD 08/11/2019 Inactive propranolol 20 mg tablet RxNorm: 415462 TAKE 1 TABLET BY MOUTH TWICE DAILY 06/18/2019 12/14/2019 Inactive 06/18/2019 11:09:41 AM Cipro 250 mg tablet RxNorm: 581074 1 Tablet(s) Oral two times a day 04/17/2019 04/16/2019 Inactive Cipro 250 mg tablet RxNorm: 594722 1 Tablet(s) Oral two times a day 04/17/2019 04/24/2019 Inactive Macrobid 100 mg capsule RxNorm: 524599 1 Capsule(s) Oral two ti mes a day 04/15/2019 04/16/2019 Inactive metronidazole 500 mg tablet RxNorm: 659913 1 Tablet(s) Oral thr ee times a day 03/18/2019 03/28/2019 Inactive Bactrim DS 800 mg-160 mg tablet RxNorm: 598700 1 Tablet(s) Oral two times a day 03/18/2019 03/18/2019 Inactive Cipro 250 mg tablet RxNorm: 141092 1 Tablet(s) PO BID 01/26/201901/22 Inactive Flagyl 500 mg tablet RxNorm: 523461 1 Tablet(s) PO TID 01/26/201904/2019 Inactive prednisone 20 mg tablet RxNorm: 593190 1 Tablet(s) PO B ID for 4 days then 1 po daily for 4 days 01/08/2019 03/17/2019 Inactive doxycycline hyclate 100 mg capsule RxNorm: 3783235 1 Capsule(s) PO BID 01/08/2019 01/14/2019 Inactive doxycycline hyclate 100 mg capsule RxNorm: 9198954 1 Capsule(s) PO BID 01/08/2019 01/07/2019 Inactive propranolol 20 mg tablet RxNorm: 276217 1 Tablet(s) PO BID 12/24/1906/17/2019 Inactive Bactrim DS 800 mg-160 mg tablet RxNorm: 815198 1 Tablet (s) PO BID repeat urine culture 48 hours after antibiotics completed. 12/15/2018 12/14/2018 In active Bactrim DS 800 mg-160 mg tablet RxNorm: 687731 1 Tablet (s) PO BID repeat urine culture 48 hours after antibiotics completed. 12/15/2018 12/19/2018 In active levothyroxine 137 mcg tablet RxNorm: 746321 1 Tablet(s) PO QD 12/0906/06/2019 Inactive meclizine 25 mg tablet RxNorm: 077398 1 Tablet(s) PO TID for di zziness 10/30/2018 11/08/2018 Inactive doxycycline hyclate 100 mg tablet RxNorm: 2912138 1 Tablet(s) PO BI D 10/07/2018 10/16/2018 Inactive albuterol sulfate HFA 90 mcg/actuation aerosol inhaler RxNor m: 386494 2 Puff(s) INH Q4H as needed 10/07/2018 02/10/2020 Inactive chlorpheniramine 4 mg tablet RxNorm: 5651985 1 Tablet(s) PO QHS for allergies 10/07/2018 03/17/2019 Inactive Tessalon 200 mg capsule RxNorm: 073573 1 Capsule(s) PO TID 10/08/1910/26/2018 Inactive doxycycline hyclate 100 mg tablet RxNorm: 1769253 1 Tablet(s) PO BI D 10/07/2018 10/06/2018 Inactive Tessalon 200 mg capsule RxNorm: 597027 1 Capsule(s) PO TID 10/08/1910/06/2018 Inactive levothyroxine 137 mcg tablet RxNorm: 216517 1 Tablet(s) PO QD 08/0512/02/2018 Inactive propranolol 20 mg tablet RxNorm: 905076 1 Tablet(s) PO BID 06/23/2012/19/2018 Inactive chlorpheniramine 4 mg tablet RxNorm: 8422503 1 Tablet(s) PO QHS for allergies 06/23/2018 08/21/2018 Inactive levothyroxine 137 mcg tablet RxNorm: 365047 1 Tablet(s) PO QD 06/0308/01/2018 Inactive levothyroxine 137 mcg tablet RxNorm: 882772 1 Tablet(s) PO QD 06/0306/02/2018 Inactive Synthroid 150 mcg tablet RxNorm: 877485 1 Tablet(s) PO QD 04/03/2018 06/22/2018 Inactive Synthroid 150 mcg tablet RxNorm: 346971 1 Tablet(s) PO QD 04/03/2018 04/02/2018 Inactive propranolol 20 mg tablet RxNorm: 897292 1 Tablet(s) PO BID 03/17/20 18 06/14/2018 Inactive propranolol 20 mg tablet RxNorm: 664920 1 Tablet(s) PO BID 03/17/20 18 06/21/2020 Inactive Lancets,Ultra Thin RxNorm: Miscellaneous Use to test blood sugar daily and as needed (Dx: E11.65) 02/28/2018 05/09/2022 Inactive Contour Test Strips RxNorm: Miscellaneous Test b lood sugar daily and as needed (Dx: E11.65) 02/28/2018 05/09/2022 Inactive Contour Meter RxNorm: 1 Miscellaneous DX: E11.65 02/27/20182021 Inactive DX: E11.65 Synthroid 175 mcg tablet RxNorm: 420238 1 Tablet(s) PO QD 01/28/2018 04/02/2018 Inactive Synthroid 175 mcg tablet RxNorm: 314095 1 Tablet(s) PO QD 01/16/2018 04/02/2018 Inactive Medrol (Isaiah) 4 mg tablets in a dose pack RxNorm: 619849 Tablet(s) P O 10/16/2017 01/15/2018 Inactive cyclobenzaprine 7.5 mg tablet RxNorm: 192364 1/2-1 Tablet(s) PO TID as needed 10/16/2017 06/22/2018 Inactive pantoprazole 40 mg tablet,delayed release RxNorm: 344688 1 Tabl et(s) PO QD 08/21/2017 06/22/2018 Inactive Nexium 40 mg capsule,delayed release RxNorm: 846541 1 Capsule(s ) PO QD 08/20/2017 08/20/2017 Inactive doxycycline hyclate 100 mg capsule RxNorm: 6882151 1 Capsule(s) PO BID 08/13/2017 08/12/2017 Inactive doxycycline hyclate 100 mg capsule RxNorm: 1595844 1 Capsule(s) PO BID 08/13/2017 08/19/2017 Inactive Tessalon Perles 100 mg capsule RxNorm: 044837 1 Capsule(s) PO T ID as needed 07/29/2017 08/07/2017 Inactive prednisone 20 mg tablet RxNorm: 752804 1 Tablet(s) PO BID 07/25/2017 07/27/2017 Inactive albuterol sulfate HFA 90 mcg/actuation aerosol inhaler RxNor m: 112706 2 Puff(s) INH Q4H as needed 07/25/2017 10/06/2018 Inactive doxycycline hyclate 100 mg capsule RxNorm: 8956482 1 Capsule(s) PO BID 06/10/2017 06/19/2017 Inactive prednisone 20 mg tablet RxNorm: 965518 1 Tablet(s) PO T ID for 2 days then 1 po BID for 2 days then 1 daily for 3 days 06/10/2017 08/12/2017 Inactive fenofibrate micronized 134 mg capsule RxNorm: 961952 TAKE 1 CAP KIMI DAILY 06/03/2017 06/22/2018 Inactive Zithromax Z-Isaiah 250 mg tablet RxNorm: 878642 Tablet(s) PO Take as directed 05/28/2017 06/09/2017 Inactive prednisone 20 mg tablet RxNorm: 724532 2 Tablet(s) PO QD 05/28/2017 1 08/01/2016 Inactive Tessalon Perles 100 mg capsule RxNorm: 036242 1 Capsule(s) PO T ID as needed 05/28/2017 06/09/2017 Inactive Janumet XR 100 mg-1,000 mg tablet,extended release RxNorm: 1 854930 1 Tablet(s) PO QD 02/14/2017 06/22/2018 Inactive fluoxetine 40 mg capsule RxNorm: 958137 1 Capsule(s) PO QD 02/15/20 17 06/22/2018 Inactive Vitamin D2 50,000 unit capsule RxNorm: 168104 1 Capsule (s) PO TAKE 1 CAPSULE BY MOUTH TWICE WEEKLY 02/11/2017 07/10/2017 Inactive Generic For:* DRISDOL [id number] 02/03/2015 10:10:59 AM Janumet XR 100 mg-1,000 mg tablet,extended release RxNorm: 1 974502 1 Tablet(s) PO QD 09/24/2016 10/06/2018 Inactive Vitamin D2 50,000 unit capsule RxNorm: 852902 Capsule(s ) TAKE 1 CAPSULE BY MOUTH TWICE WEEKLY 09/11/2016 02/11/2017 Inactive Generic For:*DRI SDOL [id number] 02/03/2015 10:10:59 AM Pepcid 20 mg tablet RxNorm: 707797 Tablet(s) PO TAKE 1 TABLET BY MOUTH TWICE DAILY. 06/14/2016 06/13/2016 Inactive fluoxetine 40 mg capsule RxNorm: 655077 1 Capsule(s) PO QD 06/14/20 16 12/10/2016 Inactive loratadine 10 mg tablet RxNorm: 054674 1 Tablet(s) PO QD 1 Tabl et(s) PO BID 06/14/2016 04/03/2017 Inactive [AttnRPh: Saving ryan ly/adjudicate RxGRP:SG20 RxBIN:[id number] RxPCN: ID#:[id number]] Vitamin D2 50,000 unit capsule RxNorm: 585401 Capsule(s ) TAKE 1 CAPSULE BY MOUTH TWICE WEEKLY 06/14/2016 09/10/2016 Inactive Generic For:*VERN FREEDMAN [id number] 02/03/2015 10:10:59 AM Synthroid 175 mcg tablet RxNorm: 239812 1 Tablet(s) PO Saturday t hrough Saturday QD 06/05/2016 01/15/2018 Inactive Synthroid 150 mcg tablet RxNorm: 117522 1 Tablet(s) PO Sat and Sun 11/09/2015 06/04/2016 Inactive Synthroid 175 mcg tablet RxNorm: 310548 1 Tablet(s) PO Saturday t hrough Saturday11/09/2015 06/04/2016 Inactive Synthroid 150 mcg tablet RxNorm: 251436 1 Tablet(s) PO Sat and Sun , Th, Sat, Sun 11/09/2015 11/08/2015 Inactive Janumet XR 100 mg-1,000 mg tablet,extended release RxNorm: 1 805554 TAKE 1 TABLET DAILY 09/30/2015 09/24/2016 Inactive azithromycin 500 mg tablet RxNorm: 694456 1 Tablet(s) PO QD 016 07/25/2015 Inactive azithromycin 500 mg tablet RxNorm: 199303 1 Tablet(s) PO QD 016 08/01/2015 Inactive loratadine 10 mg tablet RxNorm: 289556 1 Tablet(s) PO BID 04/06/2015 06/14/2016 Inactive [AttnRPh: Saving apply/adjudicate RxGRP: SG20 RxBIN:[id number] RxPCN: ID#:[id number]] Synthroid 175 mcg tablet RxNorm: 585920 1 Tablet(s) PO M, W, F 10/0 10/201411/08/2015 Inactive Synthroid 150 mcg tablet RxNorm: 196229 1 Tablet(s) PO QD , T h, Sat, Sun 03/28/2015 11/08/2015 Inactive propranolol 20 mg tablet RxNorm: 482576 1 Tablet(s) PO BID 02/09/20 15 06/13/2016 Inactive fluoxetine 40 mg capsule RxNorm: 985201 1 Capsule(s) PO QD 02/09/20 15 06/14/2016 Inactive Vitamin D2 50,000 unit capsule RxNorm: 317938 TAKE 1 CA PSULE BY MOUTH TWICE WEEKLY 02/03/2015 06/14/2016 Inactive Generic For:*VERN FREEDMAN [id number] 02/03/2015 10:10:59 AM Lipitor 80 mg tablet RxNorm: 995964 1 Tablet(s) PO QD 01/24/201507/26 Inactive [AttnRPh: Saving apply/adjudicate RxGRP: SG20 RxBIN:[id number] RxPCN: ID#:[id number]] Bactrim DS 800 mg-160 mg tablet RxNorm: 087166 1 Tablet(s) PO BID 0 01/12/2015 01/11/2015 Inactive Synthroid 150 mcg tablet RxNorm: 587180 1 Tablet(s) PO QD 01/12/2015 03/27/2015 Inactive Bactrim DS 800 mg-160 mg tablet RxNorm: 789022 1 Tablet(s) PO BID 0 01/12/2015 01/18/2015 Inactive fluoxetine 40 mg capsule RxNorm: 933782 1 Capsule(s) PO QD 01/12/20 15 02/07/2015 Inactive Synthroid 137 mcg tablet RxNorm: 293020 1 Tablet(s) PO QD 12/08/2014 01/11/2015 Inactive [AttnRPh: Saving apply/adjudicate RxGRP: SG20 RxBIN:[id number] RxPCN: ID#:[id number]] Medrol (Isaiah) 4 mg tablets in a dose pack RxNorm: 609567 6 Tablet(s) PO QD --then as directed 11/24/2014 11/29/2014 Inactive albuterol sulfate HFA 90 mcg/actuation aerosol inhaler RxNor m: 648669 2 Puff(s) INH Q4H as needed 10/27/2014 07/24/2017 Inactive phenazopyridine 100 mg tablet RxNorm: 1949056 1 Tablet(s) PO TID 11/07/2015 Inactive [AttnRPh: Saving apply/adjud icate RxGRP:SG20 RxBIN:[id number] RxPCN:HT ID#:[id number]] Macrobid 100 mg capsule RxNorm: 541616 1 Capsule(s) PO BID 10/28/19 15 11/02/2014 Inactive [SAVINGS FOR NON-COVERED RUBIO GS -- BIN:506465, PCN: ASPROD1, Group: XXXXX, ID# [id number], Questions: . THIS IS NOT INSURANCE.] prednisone 20 mg tablet RxNorm: 717441 1 Tablet(s) PO BID 10/27/2014 10/31/2014 Inactive AttnRPh: Saving apply/adjudicate RxGRP:S G20 RxBIN:[id number] RxPCN:HT ID#:[id number]: Saving apply/adjudicate RxGRP:SG20 RxBIN:[id number] RxPCN:HT ID#:[id number] Macrobid 100 mg capsule RxNorm: 515867 1 Capsule(s) PO BID 09/24/19 15 09/29/2014 Inactive [SAVINGS FOR NON-COVERED RUBIO GS -- BIN:503355, PCN: ASPROD1, Group: XXXXX, ID# [id number], Questions: . THIS IS NOT INSURANCE.] phenazopyridine 100 mg tablet RxNorm: 7260897 1 Tablet(s) PO TID 09/24/2014 Inactive [SAVINGS FOR NON-COVERED RUBIO GS -- BIN:060383, PCN: ASPROD1, Group: XXXXX, ID# [id number], Questions: . THIS IS NOT INSURANCE.] propranolol 60 mg tablet RxNorm: 027733 1 Tablet(s) PO QD 07/26/2014 02/07/2015 Inactive [SAVINGS FOR UNINSURED PATIENTS -- BIN:0 04227, PCN: ASPROD1, Group: [id number], ID# [id number], Process claim through [employer], for questions: . THIS IS NOT INSURANCE.] loratadine 10 mg tablet RxNorm: 293770 1 Tablet(s) PO BID 07/12/2014 07/11/2014 Inactive [AttnRPh: Saving apply/adjudicate RxGRP: SG20 RxBIN:[id number] RxPCN: ID#:[id number]] loratadine 10 mg tablet RxNorm: 019988 1 Tablet(s) PO BID 07/12/2014 10/06/2018 Inactive [SAVINGS FOR UNINSURED PATIENTS -- BIN:[id number], PCN: [id number], Group: [id number], ID# [id number], Process claim through [employer], for questions: . THIS IS NOT INSURANCE.] Vitamin D2 50,000 unit capsule RxNorm: 942216 1 Capsule (s) PO Take 1 capsule by mouth twice weekly 05/18/2014 02/02/2015 Inactive Pepcid 20 mg tablet RxNorm: 083997 TAKE 1 TABLET BY MOUTH TWICE DAILY. 05/18/2014 06/14/2016 Inactive Generic For:PEPCID 2 0MG 05/18/2014 11:28:51 AM Janumet XR 100 mg-1,000 mg tablet,extended release RxNorm: 1 518836 1 Tablet(s) PO QD 05/12/2014 08/09/2014 Inactive [SAVINGS FOR UNI NSURED PATIENTS -- BIN:[id number], PCN: ASPROD1, Group: [id number], ID# [id number], Process claim through [employer], for questions: . THIS IS NOT INSURANCE.] Voltaren 1 % topical gel RxNorm: 974962 TOP BID 04/21/2014 5 Inactive Apply to affected areas 2-3 times daily as needed. Trilipix 135 mg capsule,delayed release RxNorm: 080608 1 Tablet(s) PO QD 1 Capsule(s) PO QD 04/21/2014 09/17/2014 Inactive may do 90 day f ill if desired Synthroid 137 mcg tablet RxNorm: 302345 1 Tablet(s) PO QD 03/30/2014 09/25/2014 Inactive [AttnRPh: Saving apply/adjudicate RxGRP: SG20 RxBIN:[id number] RxPCN: ID#:[id number]] Cipro 250 mg tablet RxNorm: 618574 1 Tablet(s) PO BID 03/30/201403/24 Inactive [SAVINGS FOR UNINSURED PATIENTS -- BIN:[id number], PCN: ASPROD1, Group: [id number], ID# [id number], Process claim through MedImpact, for questions: . THIS IS NOT INSURANCE.] Janumet XR 100 mg-1,000 mg tablet,extended release RxNorm: 1 215407 2 Tablet(s) PO QD 01/06/2014 01/05/2014 Inactive [SAVINGS FOR UNI NSURED PATIENTS -- BIN:[id number], PCN: ASPROD1, Group: [id number], ID# [id number], Process claim through MedImpact, for questions: . THIS IS NOT INSURANCE.] Janumet XR 100 mg-1,000 mg tablet,extended release RxNorm: 1 703178 1 Tablet(s) PO QD 01/06/2014 04/05/2014 Inactive [SAVINGS FOR UNI NSURED PATIENTS -- BIN:[id number], PCN: ASPROD1, Group: [id number], ID# [id number], Process claim through MedImpact, for questions: . THIS IS NOT INSURANCE.] propranolol 60 mg tablet RxNorm: 166409 1 Tablet(s) PO QD 12/28/2013 07/26/2014 Inactive [AttnRPh: Saving apply/adjudicate RxGRP: SG20 RxBIN:[id number] RxPCN: ID#:[id number]] Synthroid 150 mcg tablet RxNorm: 947252 1 Tablet(s) PO QD brand onl y 12/28/2013 04/20/2014 Inactive [AttnRPh: Saving apply/adjud icate RxGRP:SG20 RxBIN:[id number] RxPCN: ID#:[id number]] Vitamin D2 50,000 unit capsule RxNorm: 354074 1 Capsule (s) PO Take 1 capsule by mouth twice weekly 12/02/2013 05/17/2014 Inactive Lipitor 80 mg tablet RxNorm: 117617 1 Tablet(s) PO QD 11/24/201305/25 Inactive [AttnRPh: Saving apply/adjudicate RxGRP: SG20 RxBIN:[id number] RxPCN: ID#:[id number]] loratadine 10 mg tablet RxNorm: 602545 1 Tablet(s) PO BID 11/17/2013 07/12/2014 Inactive fluoxetine 20 mg capsule RxNorm: 561482 1 Capsule(s) PO QAM TAKE ONE CAPSULE BY MOUTH ONCE DAILY IN THE MORNING. 11/04/2013 01/10/2015 Inactive Generic For:PROZAC 20MG Generic For:PROZAC 20MG 06/23/2013 11:55:55 AM [AttnRPh: Saving apply/adjudicate RxGRP:SG20 RxBIN:[id number] RxPCN: ID#:[id number]] Vytorin 10 mg-80 mg tablet RxNorm: 4299870 Tablet(s) PO TAKE ONE TABLET BY MOUTH ONCE DAILY IN THE EVENING. 09/30/2013 11/23/2013 Inactive Trilipix 135 mg capsule,delayed release RxNorm: 202342 1 Capsul e(s) PO QD 07/15/2013 04/21/2014 Inactive may do 90 day fill i f desired Voltaren 1 % topical gel RxNorm: 720203 TOP BID 07/15/2013 4 Inactive Apply to affected areas 2-3 times daily as needed. Wellbutrin XL 300 mg 24 hr tablet, extended release RxNorm: 858813 1 Tablet(s) PO QAM 06/29/2013 04/03/2017 Inactive fluoxetine 20 mg capsule RxNorm: 520336 1 Capsule(s) PO QAM TAKE ONE CAPSULE BY MOUTH ONCE DAILY IN THE MORNING. 06/29/2013 11/04/2013 Inactive Generic For:PROZAC 20MG Generic For:PROZAC 20MG 06/23/2013 11:55:55 AM fluoxetine 20 mg capsule RxNorm: 764677 Capsule(s) PO T ARY ONE CAPSULE BY MOUTH ONCE DAILY IN THE MORNING. 06/23/2013 06/28/2013 Inactive Gener ic For:PROZAC 20MG Generic For:PROZAC 20MG 06/23/2013 11:55:55 AM Synthroid 150 mcg tablet RxNorm: 890055 1 Tablet(s) PO QD brand onl y 06/08/2013 12/04/2013 Inactive Vytorin 10 mg-80 mg tablet RxNorm: 3921508 1 Tablet(s) PO QD 201209/05/2013 Inactive TAKE 1 TABLET BY MOUTH DAILY propranolol 60 mg tablet RxNorm: 277186 1 Tablet(s) PO QD 06/08/2013 12/04/2013 Inactive Pepcid 20 mg tablet RxNorm: 051345 Tablet(s) PO TAKE 1 TABLET BY MOUTH TWICE DAILY. 06/04/2013 11/23/2013 Inactive fluoxetine 20 mg capsule RxNorm: 044138 1 Capsule(s) PO QAM 013 06/22/2013 Inactive Wellbutrin XL 300 mg 24 hr tablet, extended release RxNorm: 664340 1 Tablet(s) PO QAM 05/26/2013 06/28/2013 Inactive Wellbutrin XL 150 mg 24 hr tablet, extended release RxNorm: 172987 1 Tablet(s) PO QD 05/15/2013 05/25/2013 Inactive Wellbutrin XL 150 mg 24 hr tablet, extended release RxNorm: 919000 1 Tablet(s) PO QD 05/15/2013 05/14/2013 Inactive Kombiglyze XR 5 mg-500 mg tablet,extended release RxNorm: 10 11150 1 Tablet(s) PO QD 05/07/2013 05/15/2013 Inactive cefdinir 300 mg capsule RxNorm: 033291 2 Capsule(s) PO QD 04/23/2013 05/02/2013 Inactive AttnRPh: Saving apply/adjudicate RxGRP:S G20 RxBIN:[id number] RxPCN: ID#:[id number] Pepcid 20 mg tablet RxNorm: 106825 Tablet(s) PO TAKE 1 TABLET BY MOUTH TWICE DAILY. 04/17/2013 06/13/2016 Inactive Pepcid 20 mg tablet RxNorm: 393434 1 Tablet(s) PO BID 04/06/201305/24 Inactive Vytorin 10-80 10 mg-80 mg tablet RxNorm: 747734 1 Tablet(s) PO QD 0 02/19/2013 06/08/2013 Inactive TAKE 1 TABLET BY MOUTH DAILY loratadine 10 mg tablet RxNorm: 383767 1 Tablet(s) PO BID 01/23/2013 07/21/2013 Inactive Synthroid 150 mcg tablet RxNorm: 440317 1 Tablet(s) PO QD brand onl y 12/02/2012 06/08/2013 Inactive propranolol 60 mg tablet RxNorm: 582655 1 Tablet(s) PO QD 12/02/2012 06/08/2013 Inactive Trilipix 135 mg capsule,delayed release RxNorm: 856620 1 Capsul e(s) PO QD 12/02/2012 05/30/2013 Inactive may do 90 day fill i f desired Pepcid 20 mg tablet RxNorm: 248571 1 Tablet(s) PO BID 11/27/201203/24 Inactive Effexor XR 150 mg capsule,extended release RxNorm: 967146 1 Cap kimi(s) PO QD 11/24/2012 05/14/2013 Inactive Vytorin 10-80 10 mg-80 mg tablet RxNorm: 899401 1 Tablet(s) PO QD 0 11/24/2012 2013 Inactive TAKE 1 TABLET BY MOUTH DAILY Vytorin 10-80 10 mg-80 mg tablet RxNorm: 390560 1 Tablet(s) PO QD 0 11/21/2012 11/24/2012 Inactive TAKE 1 TABLET BY MOUTH DAILY Effexor XR 150 mg capsule,extended release RxNorm: 171310 1 Cap kimi(s) PO QD 11/21/2012 11/24/2012 Inactive loratadine 10 mg tablet RxNorm: 0066860 1 Tablet(s) PO BID 11/12/19 13 01/23/2013 Inactive Vytorin 10-80 10 mg-80 mg tablet RxNorm: 426757 Tablet( s) PO TAKE 1 TABLET BY MOUTH ONCE DAILY. 10/15/2012 11/21/2012 Inactive Vytorin 10-80 10 mg-80 mg tablet RxNorm: 449458 1 Tablet(s) PO QD 0 10/15/2012 11/20/2012 Inactive TAKE 1 TABLET BY MOUTH DAILY Effexor XR 150 mg capsule,extended release RxNorm: 922438 1 Cap kimi(s) PO QD 10/15/2012 11/20/2012 Inactive Effexor XR 150 mg capsule,extended release RxNorm: 215034 Capsule(s) PO TAKE 1 CAPSULE BY MOUTH ONCE DAILY 10/15/2012 11/21/2012 Inactive azithromycin 250 mg tablet RxNorm: 017739 2 Tablet(s) PO QD 013 09/10/2012 Inactive Culturelle 10 billion cell capsule RxNorm: 082027 1 Cap kimi(s) PO BID for diarrhea maintenance 09/03/2012 10/02/2012 Inactive Medrol (Isaiah) 4 mg tablets in a dose pack RxNorm: 139618 Tablet(s) PO as directed 09/03/2012 07/11/2011 Active as directed Culturelle 10 billion cell capsule RxNorm: 722568 1 Capsule(s) PO BID 07/23/2012 08/21/2012 Inactive Vitamin D2 50,000 unit capsule RxNorm: 486627 Capsule(s ) PO TAKE 1 CAPSULE EVERY DAY SATURDAY THRU Saturday07/09/2012 08/20/2013 Inactive Vitamin D2 50,000 unit capsule RxNorm: 0269329 Capsule(s ) PO TAKE 1 CAPSULE EVERY DAY SATURDAY THRU Saturday07/07/2012 07/08/2012 Inactive Vitamin D2 50,000 unit capsule RxNorm: 9898979 Capsule(s ) PO TAKE 1 CAPSULE EVERY DAY SATURDAY THRU Saturday07/07/2012 07/06/2012 Inactive Vitamin D2 50,000 unit capsule RxNorm: 6373076 Capsule(s ) PO TAKE 1 CAPSULE EVERY DAY SATURDAY THRU Saturday06/27/2012 07/06/2012 Inactive Synthroid 150 mcg tablet RxNorm: 688201 1 Tablet(s) PO QD brand onl y 06/09/2012 12/02/2012 Inactive metformin 1,000 mg tablet RxNorm: 369961 1 Tablet(s) PO BID rep laces 500mg dose 05/20/2012 11/10/2012 Inactive propranolol 60 mg tablet RxNorm: 974301 1 Tablet(s) PO QD 04/23/2012 12/02/2012 Inactive Effexor XR 150 mg capsule,extended release RxNorm: 646251 1 Cap kimi(s) PO QD 04/04/2012 09/30/2012 Inactive Zyrtec 10 mg tablet RxNorm: 2443956 1 Tablet(s) PO QD 04/04/201203/24 Inactive Trilipix 135 mg capsule,delayed release RxNorm: 072976 1 Capsul e(s) PO QD 03/19/2012 12/02/2012 Inactive may do 90 day fill i f desired Vytorin 10-80 10 mg-80 mg tablet RxNorm: 071792 1 Tablet(s) PO QD 0 01/31/2012 07/28/2012 Inactive TAKE 1 TABLET BY MOUTH DAILY Voltaren 1 % topical gel RxNorm: 506840 TOP BID 01/25/2012 4 Inactive Apply to affected areas 2-3 times daily as needed. Synthroid 150 mcg tablet RxNorm: 909529 1 Tablet(s) PO QD brand onl y 01/02/2012 06/09/2012 Inactive metformin ER 1,000 mg 24 hr Tab Ctrl Rel RxNorm: 048575 1 Table t(s) PO QD 01/02/2012 05/19/2012 Inactive metformin ER 500 mg 24 hr Tab RxNorm: 467228 Tablet(s) PO 12/21/2011 01/01/2012 Inactive TAKE 1 TABLET BY MOUTH ONCE DAILY. Voltaren 1 % Topical Gel RxNorm: 471469 TOP BID 11/28/2011 2 Inactive Apply to affected areas 2-3 times daily as needed. propranolol 60 mg tablet RxNorm: 072029 1 Tablet(s) PO QD 10/17/2011 04/23/2012 Inactive Effexor XR 150 mg capsule,extended release RxNorm: 733823 1 Cap kimi(s) PO QD 09/13/2011 04/04/2012 Inactive Medrol (Isaiah) 4 mg tablets in a dose pack RxNorm: 817905 Tablet(s) PO as directed 09/04/2011 07/11/2011 Active as directed doxycycline hyclate 100 mg Tab RxNorm: 3573073 1 Tablet(s) PO BID 0 09/04/2011 09/13/2011 Inactive doxycycline monohydrate 100 mg Tab RxNorm: 7332604 1 Tablet(s) P O BID 07/25/2011 08/03/2011 Inactive prednisone 10 mg Tab RxNorm: 736480 1 Tablet(s) PO TID 07/25/201112/2011 Inactive Synthroid 150 mcg Tab RxNorm: 132949 1 Tablet(s) PO QD brand only 0 07/12/2011 01/02/2012 Inactive Vytorin 10-80 10 mg-80 mg Tab RxNorm: 420790 1 Tablet(s) PO QD 05/2601/31/2012 Inactive TAKE 1 TABLET BY MOUTH DAILY Vitamin D2 50,000 unit capsule RxNorm: 6653791 1 Capsule(s) PO Q D M-F 05/15/2011 06/26/2012 Inactive TAKE 1 CAPSULE BY MO [facility] DAILY SATURDAY THROUGH FRIDAYS Synthroid 150 mcg Tab RxNorm: 168793 1 Tablet(s) PO QD brand only 1 07/09/2010 07/11/2011 Inactive doxycycline monohydrate 100 mg Tab RxNorm: 5876787 1 Tablet(s) P O BID 04/25/2011 05/04/2011 Inactive Trilipix 135 mg capsule,delayed release RxNorm: 798023 1 Capsul e(s) PO QD 04/23/2011 03/19/2012 Inactive cefdinir 300 mg Cap RxNorm: 967978 1 Capsule(s) PO BID 04/04/2011 Inactive propranolol 60 mg Tab RxNorm: 273925 1 Tablet(s) PO QD 03/26/2011 Inactive Ultram 50 mg Tab RxNorm: 966697 1-2 Tablet(s) PO QID 03/22/201103/21 Active prn pain metformin ER 500 mg 24 hr Tab RxNorm: 731812 1 Tablet(s) PO QD 06/201006/21/2011 Inactive Synthroid 150 mcg Tab RxNorm: 035949 1 Tablet(s) PO QD 02/22/201112/2010 Inactive Vytorin 10-80 10 mg-80 mg Tab RxNorm: 766629 1 Tablet(s) PO QD 01/2303/13/2011 Inactive TAKE 1 TABLET BY MOUTH DAILY Trilipix 135 mg Cap RxNorm: 463776 1 Capsule(s) PO QD 01/10/201103/26 Inactive Effexor XR 150 mg 24 hr Cap RxNorm: 559930 1 Capsule(s) PO QD 01/0908/06/2011 Inactive Vitamin D 50,000 unit Cap RxNorm: 8024541 Capsule(s) PO 12/20/2010 Inactive TAKE 1 CAPSULE BY MOUTH DAILY SATURDAY THR Fridays Septra DS 800 mg-160 mg Tab RxNorm: 375235 1 Tablet(s) PO BID 12/0712/16/2010 Inactive mupirocin 2 % Ointment RxNorm: 883285 1 Application TOP BID Apply to affected area twice daily 12/07/2010 12/13/2010 Inactive Trilipix 135 mg Cap RxNorm: 902522 1 Capsule(s) PO QD 10/16/201003/26 Inactive Synthroid 150 mcg Tab RxNorm: 017624 1 Tablet(s) PO QD 10/09/201006/2010 Inactive metformin ER 500 mg 24 hr Tab RxNorm: 715435 1 Tablet(s) PO QD 09/2202/22/2011 Inactive Nexium 40 mg Cap RxNorm: 473177 1 Capsule(s) PO QD 10/05/2010 019 Inactive Vytorin 10-80 10 mg-80 mg Tab RxNorm: 404849 1 Tablet(s) PO QD 09/201002/12/2011 Inactive propranolol 60 mg Tab RxNorm: 181793 1 Tablet(s) PO QD 09/18/201008/2010 Inactive Synthroid 125 mcg Tab RxNorm: 729407 1 Tablet(s) PO QD 08/07/2010 Inactive Synthroid 125 mcg Tab RxNorm: 101237 1 Tablet(s) PO QD 08/07/2010 Inactive Voltaren 1 % Topical Gel RxNorm: 917332 TOP BID Apply t o affected areas 2-3 times daily as needed. 08/01/2010 11/28/2011 Inactive Voltaren 1 % Topical Gel RxNorm: 079793 TOP BID Apply t o affected areas 2-3 times daily as needed. 07/04/2010 07/31/2010 Inactive Advair Diskus 250 mcg-50 mcg/dose for Inhalation RxNorm: 135 9859 1 Puff(s) INH Q12H 07/04/2010 07/11/2011 Inactive Effexor XR 150 mg 24 hr Cap RxNorm: 842773 1 Capsule(s) PO QD 06/0801/03/2011 Inactive Synthroid 100 mcg Tab RxNorm: 806311 1 Tablet(s) PO QD 06/06/2010 Inactive Vitamin D 50,000 unit Cap RxNorm: 3670382 1 Capsule(s) PO QD M-F 05/15/2011 Inactive Synthroid 150 mcg Tab RxNorm: 925625 1 Tablet(s) PO 05/25/20102010 Inactive Vytorin 10-80 10 mg-80 mg Tab RxNorm: 205836 1 Tablet(s) PO QD 04/2509/25/2010 Inactive Trilipix 135 mg Cap RxNorm: 916380 1 Capsule(s) PO QD 04/17/201009/23 Inactive propranolol 60 mg Tab RxNorm: 284850 1 Tablet(s) PO QD 01/09/2010 Inactive Advair Diskus 250 mcg-50 mcg/dose for Inhalation RxNorm: 135 9859 1 Puff(s) INH Q12H 12/26/2009 07/04/2010 Inactive Advair Diskus 250 mcg-50 mcg/Dose for Inhalation RxNorm: 135 9859 1 Puff(s) INH Q12H 11/26/2009 12/25/2009 Inactive Synthroid 200 mcg Tab RxNorm: 282409 1 Tablet(s) PO QD 11/24/2009 Inactive Effexor XR 150 mg 24 hr Cap RxNorm: 486017 1 Capsule(s) PO QD 10/2705/24/2010 Inactive Lisinopril 10 mg Tab RxNorm: 167599 1 Tablet(s) PO QD 10/17/200909/23 Inactive Propranolol 60 mg Tab RxNorm: 243588 1 Tablet(s) PO QD 10/17/2009 Inactive Septra DS 160 mg-800 mg Tab RxNorm: 884727 1 Tablet(s) PO BID 10/0410/08/2009 Inactive Mupirocin 2 % Ointment RxNorm: 687728 TOP Q6-8H 10/04/2009 10/10/2009 Inactive Voltaren 1 % Topical Gel RxNorm: 273698 TOP BID Apply t o affected areas 2-3 times daily as needed. 09/21/2009 03/19/2010 Inactive Trilipix 135 mg Cap RxNorm: 584448 1 Capsule(s) PO QD 09/20/200902/23 Inactive Nexium 40 mg Cap RxNorm: 939891 1 Capsule(s) PO QD 09/19/2009 010 Inactive Tylenol Arthritis 650 mg Tab RxNorm: 2520235 2 Tablet(s) PO BID 09/21 Active Vitamin D3 5,000 unit tablet RxNorm: 637216 1 Tablet(s) PO QD 019 Active Synthroid 150 mcg tablet RxNorm: 277386 1 Tablet(s) PO QD 01/12/2015 01/11/2015 Inactive Synthroid 150 mcg tablet RxNorm: 214781 1 Tablet(s) PO Saturday and Saturday01/16/2018 01/15/2018 Inactive Vitamin D 2,000 unit Cap RxNorm: 1 Capsule(s) PO QD 01/30/201002/2010 Inactive Flexeril 5 mg tablet RxNorm: 538939 06/25 to 1 Tablet(s) PO TID as needed for muscle spasm 06/10/2017 06/09/2017 Inactive Medrol (Isaiah) 4 mg Tabs in a Dose Pack RxNorm: 186276 Tablet(s) PO 0 09/04/2011 07/11/2011 Inactive as directed fenofibrate micronized 134 mg capsule RxNorm: 646783 1 Capsule( s) PO QD 06/03/2017 06/02/2017 Inactive Vitamin D2 50,000 unit capsule RxNorm: 048563 Capsule(s ) PO Take 1 capsule by mouth twice weekly 12/02/2013 12/01/2013 Inactive prednisone 20 mg tablet RxNorm: 752812 1 Tablet(s) PO BID 03/30/2014 03/29/2014 Inactive AttnRPh: Saving apply/adjudicate RxGRP:S G20 RxBIN:[id number] RxPCN:HT ID#:[id number]: Saving apply/adjudicate RxGRP:SG20 RxBIN:[id number] RxPCN:HT ID#:[id number] Soma 350 mg tablet RxNorm: 624502 1 Tablet(s) PO TID prn spasm 01/2310/08/2010 Inactive Lancets,Ultra Thin RxNorm: Miscellaneous Use to test blood sugar daily and as needed (Dx: E11.65) 02/28/2018 02/27/2018 Inactive pantoprazole 40 mg tablet,delayed release RxNorm: 850737 1 Tabl et(s) PO QD 08/21/2017 08/20/2017 Inactive Janumet XR 100 mg-1,000 mg tablet,extended release RxNorm: 1 194427 2 Tablet(s) PO QD 01/06/2014 01/05/2014 Inactive Contour Meter RxNorm: miscellaneous 02/27/2018 02/26/2018 Inactive Synthroid 200 mcg Tab RxNorm: 770259 1 Tablet(s) PO QD 11/24/200907/2009 Inactive Kombiglyze XR 5 mg-500 mg tablet,extended release RxNorm: 10 12832 1 Tablet(s) PO QD 05/07/2013 05/06/2013 Inactive Zithromax Z-Isaiah 250 mg tablet RxNorm: 988501 Tablet(s) PO as di rected 05/14/2013 05/13/2013 Inactive AttnRPh: Saving appl y/adjudicate RxGRP:SG20 RxBIN:[id number] RxPCN: ID#:[id number] Fish Oil 1,000 mg capsule RxNorm: 3 Capsule(s) PO QD 04/04/2017 Inactive Lasix Oral RxNorm: Oral 03/30/2014 03/29/2014 Inactive loratadine 10 mg tablet RxNorm: 032328 1 Tablet(s) PO QD 08/20/2017 0 08/19/2017 Inactive Vitamin D 5,000 unit Tab RxNorm: 1 Tablet(s) PO twice a week 1 08/07/2009 06/05/2010 Inactive permethrin 5 % Topical Cream RxNorm: 008715 TOP Use as directed 02/03/2013 Inactive Gabapentin 100 mg Tab RxNorm: 698769 1 Tablet(s) PO BID 04/12/2010 Inactive Voltaren 1 % topical gel RxNorm: 384186 TOP as needed 06/23/201805/26 Inactive Gabapentin 300 mg Cap RxNorm: 336604 1 Capsule(s) PO BID 07/12/2011 0 07/11/2011 Inactive Contour Test Strips RxNorm: Miscellaneous Test blood sug ar daily (Dx: E11.65) 02/28/2018 02/27/2018 Inactive Promethazine 25 mg Tab RxNorm: 788120 1 Tablet(s) PO Q6 -8H As needed for nausea and vomiting. 10/09/2010 10/08/2010 Inactive propranolol 20 mg tablet RxNorm: 073763 1 Tablet(s) PO BID 03/17/20 18 03/16/2018 Inactive Vitamin D 50,000 unit Cap RxNorm: 8778846 Capsule(s) PO 2 weekly 06/05/2010 Inactive Synthroid 175 mcg Tab RxNorm: 292489 1 Tablet(s) PO QD 07/12/2011 Inactive triamcinolone acetonide 0.1 % Ointment RxNorm: 3280190 T OP TID apply three times a day (sparingly) as needed for itching 04/04/2017 04/03/2017 Inactive Ultram 50 mg Tab RxNorm: 900209 1-2 Tablet(s) PO QID prn pain 03/2203/22/2011 Inactive Topamax 100 mg Tab RxNorm: 255537 1 Tablet(s) PO BID 10/04/200910/03 Inactive Vitamin D3 1000 units Capsule RxNorm: 3 Capsule(s) PO QD 0 06/05/2010 Inactive Singulair 10 mg tablet RxNorm: 867747 1 Tablet(s) PO QD 06/23/2018 Inactive Medication [...] Code Result Date S ervice Location SARS-CoV2 0445928 SARS-CoV2 PCR Detected 07/08/2021 Unkno wn GFR CALC 1487652 GFR Non Afr Amr >60 mL/min 01/26/2019 Un known GFR CALC 6600148 GFR Afr Amr >60 mL/min 01/26/2019 Unknow n COMPLETE BLOOD COUNT [id number] WBC 7.0 10e9/L 01/27/20 19 Unknown COMPLETE BLOOD COUNT 0022666 RBC 4.52 10e12/L 2018 Unknown COMPLETE BLOOD COUNT 2307359 HEMOGLOBIN 14.0 g/dL 01/27/20 19 Unknown COMPLETE BLOOD COUNT 3045930 HEMATOCRIT 42.6 % 01/27/20 19 Unknown COMPLETE BLOOD COUNT 3310422 MCV 94.2 fL 9 Unknown COMPLETE BLOOD COUNT 4141016 MCH 31.0 pg 9 Unknown COMPLETE BLOOD COUNT 5435029 MCHC 32.9 g/dL 9 Unknown COMPLETE BLOOD COUNT 0643774 PLATELET COUNT 272 10e9/L 10/2018 Unknown COMPLETE BLOOD COUNT 4144499 Mean Plt Volume 10.4 fL 10/2018 Unknown COMPLETE BLOOD COUNT 7133694 Neut Auto 53.9 % 9 Unknown COMPLETE BLOOD COUNT 8087283 Lymph Auto 33.8 % 01/27/20 19 Unknown COMPLETE BLOOD COUNT 6048771 Sharp Auto 9.1 % 9 Unknown COMPLETE BLOOD COUNT 6181975 RDW 13.2 % 9 Unknown COMPLETE BLOOD COUNT 2830003 Eos Auto 2.3 % 9 Unknown COMPLETE BLOOD COUNT 3454964 Baso Auto 0.9 % 9 Unknown COMPLETE BLOOD COUNT 4020977 Neutrophil Abs 3.77 10e9/L Unknown COMPLETE BLOOD COUNT 1690015 Lymphocyte Abs 2.37 10e9/L Unknown COMPLETE BLOOD COUNT 3994546 Monocyte Abs 0.64 10e9/L 10/2018 Unknown COMPLETE BLOOD COUNT 9450133 Eosinophil Abs 0.16 10e9/L Unknown COMPLETE BLOOD COUNT 2154113 RDW-SD 44.2 fL 9 Unknown COMPLETE BLOOD COUNT 7969700 Basophil Abs 0.06 10e9/L 10/2018 Unknown COMPREHENSIVE METABOLIC 13628 AST 15 U/L 2018 Unknown COMPREHENSIVE METABOLIC 71144 ALT 18 U/L 2018 Unknown COMPREHENSIVE METABOLIC 34464 BUN 10 mg/dL 2018 Unknown COMPREHENSIVE METABOLIC 81004 ALBUMIN 4.1 g/dL 2018 Unknown COMPREHENSIVE METABOLIC 61952 CHLORIDE 100 mmol/L 01/26 Unknown COMPREHENSIVE METABOLIC 91906 Bili Total 0.4 mg/dL 01/26 Unknown COMPREHENSIVE METABOLIC 24974 ALK PHOS 57 U/L 2018 Unknown COMPREHENSIVE METABOLIC 61082 SODIUM 136 mmol/L 01/26 Unknown COMPREHENSIVE METABOLIC 98727 CREATININE 0.71 mg/dL 10/2018 Unknown COMPREHENSIVE METABOLIC 89837 CALCIUM 9.3 mg/dL 2018 Unknown COMPREHENSIVE METABOLIC 12241 POTASSIUM 4.4 mmol/L 01/26 Unknown COMPREHENSIVE METABOLIC 68526 Total Protein 6.7 g/dL Unknown COMPREHENSIVE METABOLIC 65976 Glucose 88 mg/dL 2018 Unknown COMPREHENSIVE METABOLIC 60836 Bicarbonate 27 mmol/L 10/2018 Unknown COMPREHENSIVE METABOLIC 23421 AGAP 9 mmol/L 2018 Unknown Procedures Procedure Codes Date RML URINE CULTURE/ COLONY COUNT CPT-4: 70099 06/29/19 23 THER/PROPH/DIAG INJ SC/IM CPT-4: 51046 04/18/2022 KETOROLAC TROMETHAMINE INJ CPT-4: J1885 04/18/2022 FLU 64 + VACC AIIV4 NO PRSRV 0.5ML IM CPT-4: 64845 ADMIN INFLUENZA VIRUS VAC CPT-4: G0008 04/05/2022 PPPS, subseq visit CPT-4: G0439 02/06/2022 DEXAMETHASONE SODIUM PHOS CPT-4: J1100 11/09/2021 THER/PROPH/DIAG INJ SC/IM CPT-4: 52817 11/09/2021 TRIAMCINOLONE ACET INJ NOS CPT-4: J3301 11/09/2021 CEFTRIAXONE SODIUM INJECTION CPT-4: J0696 10/30/2021 THER/PROPH/DIAG INJ SC/IM CPT-4: 99571 10/30/2021 INFLUENZA ASSAY W/OPTIC CPT-4: 54464 10/30/2021 THER/PROPH/DIAG INJ SC/IM CPT-4: 42655 09/05/2021 TRIAMCINOLONE ACET INJ NOS CPT-4: J3301 09/05/2021 INFLUENZA ASSAY W/OPTIC CPT-4: 04690 07/04/2021 SARS-CoV2 CPT-4: 7554643 07/04/2021 FLU VACC PRSV FREE INC ANTIG 65 AND OLDER CPT-4: 59310 03/29/2021 FLU VACC PRSV FREE INC ANTIG 65 AND OLDER CPT-4: 67710 03/29/2021 ADMIN INFLUENZA VIRUS VAC CPT-4: G0008 03/29/2021 DRAINAGE OF SKIN ABSCESS CPT-4: 71627 02/08/2021 PPPS, subseq visit CPT-4: G0439 01/03/2021 OCCULT BLOOD FECES CPT-4: 00822 07/13/2020 RML URINE CULTURE/ COLONY COUNT CPT-4: 57177 05/17/20 URINALYSIS NONAUTO W/O SCOPE CPT-4: 42741 05/17/2020 CEFTRIAXONE SODIUM INJECTION CPT-4: J0696 03/07/2020 THER/PROPH/DIAG INJ SC/IM CPT-4: 65272 03/07/2020 THER/PROPH/DIAG INJ SC/IM CPT-4: 58799 03/07/2020 METHYLPREDNISOLONE INJECTION CPT-4: J2930 03/07/2020 PPPS, subseq visit CPT-4: G0439 12/21/2019 RML URINE CULTURE/ COLONY COUNT CPT-4: 98316 09/11/19 CEFTRIAXONE SODIUM INJECTION CPT-4: J0696 09/08/2019 THER/PROPH/DIAG INJ SC/IM CPT-4: 20402 09/08/2019 THER/PROPH/DIAG INJ SC/IM CPT-4: 08620 09/07/2019 CEFTRIAXONE SODIUM INJECTION CPT-4: J0696 09/07/2019 THER/PROPH/DIAG INJ SC/IM CPT-4: 19719 09/07/2019 URINALYSIS NONAUTO W/O SCOPE CPT-4: 71845 09/02/2019 RML URINE CULTURE/ COLONY COUNT CPT-4: 18637 09/02/19 FLU VACC PRSV FREE INC ANTIG 65 AND OLDER CPT-4: 26081 04/15/2019 URINALYSIS NONAUTO W/O SCOPE CPT-4: 37317 04/15/2019 RML URINE CULTURE/ COLONY COUNT CPT-4: 82883 04/15/20 ADMIN INFLUENZA VIRUS VAC CPT-4: G0008 04/15/2019 FLU VACC PRSV FREE INC ANTIG 65 AND OLDER CPT-4: 75890 04/15/2019 THER/PROPH/DIAG INJ SC/IM CPT-4: 67880 04/07/2019 TRIAMCINOLONE ACET INJ NOS CPT-4: J3301 04/07/2019 DEXAMETHASONE SODIUM PHOS CPT-4: J1100 04/07/2019 URINALYSIS NONAUTO W/O SCOPE CPT-4: 14703 03/18/2019 RML URINE CULTURE/ COLONY COUNT CPT-4: 02714 03/18/20 19 ROUTINE VENIPUNCTURE CPT-4: 36317 01/26/2019 RML COMPREHEN METABOLIC PANEL CPT-4: 59731 01/26/2019 RML COMPLETE CBC W/AUTO DIFF WBC CPT-4: 60784 019 RML URINE CULTURE/ COLONY COUNT CPT-4: 17908 01/27/20 19 URINALYSIS NONAUTO W/O SCOPE CPT-4: 24661 01/26/2019 THER/PROPH/DIAG INJ SC/IM CPT-4: 47656 01/08/2019 TRIAMCINOLONE ACET INJ NOS CPT-4: J3301 01/08/2019 THER/PROPH/DIAG INJ SC/IM CPT-4: 07701 01/06/2019 METHYLPREDNISOLONE INJECTION CPT-4: J2930 01/06/2019 AIRWAY INHALATION TREATMENT CPT-4: 81595 01/06/2019 RML URINE CULTURE/ COLONY COUNT CPT-4: 49782 01/07/20 19 PPPS, subseq visit CPT-4: G0439 12/11/2018 URINALYSIS NONAUTO W/O SCOPE CPT-4: 60154 12/11/2018 RML URINE CULTURE/ COLONY COUNT CPT-4: 28368 12/12/19 19 CULTURE OTHR SPECIMN AEROBIC CPT-4: 83836 12/11/2018 OCCULT BLOOD FECES CPT-4: 94725 12/11/2018 THER/PROPH/DIAG INJ SC/IM CPT-4: 96690 10/07/2018 TRIAMCINOLONE ACET INJ NOS CPT-4: J3301 10/07/2018 DEXAMETHASONE SODIUM PHOS CPT-4: J1100 10/07/2018 THER/PROPH/DIAG INJ SC/IM CPT-4: 84813 10/16/2017 TRIAMCINOLONE ACET INJ NOS CPT-4: J3301 10/16/2017 THER/PROPH/DIAG INJ SC/IM CPT-4: 38443 10/16/2017 KETOROLAC TROMETHAMINE INJ CPT-4: J1885 10/16/2017 INFLUENZA ASSAY W/OPTIC CPT-4: 21680 07/25/2017 FLU VACC PRSV FREE INC ANTIG 65 AND OLDER CPT-4: 18299 04/04/2017 PNEUMOCOCCAL VACC 23 DANAY IM CPT-4: 60768 04/04/2017 PPPS, subseq visit CPT-4: G0439 04/04/2017 ADMIN INFLUENZA VIRUS VAC CPT-4: G0008 04/04/2017 ADMIN PNEUMOCOCCAL VACCINE CPT-4: G0009 04/04/2017 URINALYSIS NONAUTO W/O SCOPE CPT-4: 20233 06/05/2016 FLU VACC PRSV FREE INC ANTIG 65 AND OLDER CPT-4: 00248 05/01/2016 ADMIN INFLUENZA VIRUS VAC CPT-4: G0008 05/01/2016 URINALYSIS NONAUTO W/O SCOPE CPT-4: 31489 11/08/2015 URINALYSIS NONAUTO W/O SCOPE CPT-4: 92982 03/28/2015 ADMIN INFLUENZA VIRUS VAC CPT-4: G0008 03/28/2015 FLU VACC PRSV FREE INC ANTIG 65 AND OLDER CPT-4: 95764 03/28/2015 PRESCRIP TRANSMIT VIA ERX SY CPT-4: G8553 03/28/2015 PNEUMOCOCCAL VACC 13 DANAY IM CPT-4: 78672 02/08/2015 ADMIN PNEUMOCOCCAL VACCINE CPT-4: G0009 02/08/2015 PRESCRIP TRANSMIT VIA ERX SY CPT-4: G8553 02/08/2015 RML URINE CULTURE/ COLONY COUNT CPT-4: 56408 01/12/20 15 URINALYSIS NONAUTO W/O SCOPE CPT-4: 04758 01/11/2015 PRESCRIP TRANSMIT VIA ERX SY CPT-4: G8553 01/11/2015 PRESCRIP TRANSMIT VIA ERX SY CPT-4: G8553 11/24/2014 URINALYSIS NONAUTO W/O SCOPE CPT-4: 81656 10/27/2014 RML URINE CULTURE/ COLONY COUNT CPT-4: 83308 10/28/19 15 PRESCRIP TRANSMIT VIA ERX SY CPT-4: G8553 10/27/2014 CEFTRIAXONE SODIUM INJECTION CPT-4: J0696 09/23/2014 THER/PROPH/DIAG INJ SC/IM CPT-4: 57388 09/23/2014 URINALYSIS NONAUTO W/O SCOPE CPT-4: 12808 09/23/2014 RML URINE CULTURE/ COLONY COUNT CPT-4: 88779 09/24/19 15 PRESCRIP TRANSMIT VIA ERX SY CPT-4: G8553 09/23/2014 URINALYSIS NONAUTO W/O SCOPE CPT-4: 08287 03/30/2014 RML URINE CULTURE/ COLONY COUNT CPT-4: 95279 03/30/20 14 PRESCRIP TRANSMIT VIA ERX SY CPT-4: G8553 03/30/2014 PRESCRIP TRANSMIT VIA ERX SY CPT-4: G8553 11/24/2013 PRESCRIP TRANSMIT VIA ERX SY CPT-4: G8553 06/29/2013 PRESCRIP TRANSMIT VIA ERX SY CPT-4: G8553 05/26/2013 PRESCRIP TRANSMIT VIA ERX SY CPT-4: G8553 04/23/2013 THER/PROPH/DIAG INJ SC/IM CPT-4: 61332 03/05/2013 KETOROLAC TROMETHAMINE INJ CPT-4: J1885 03/05/2013 PRESCRIP TRANSMIT VIA ERX SY CPT-4: G8553 11/27/2012 PRESCRIP TRANSMIT VIA ERX SY CPT-4: G8553 11/11/2012 PRESCRIP TRANSMIT VIA ERX SY CPT-4: G8553 09/03/2012 PRESCRIP TRANSMIT VIA ERX SY CPT-4: G8553 07/23/2012 PRESCRIP TRANSMIT VIA ERX SY CPT-4: G8553 05/20/2012 PRESCRIP TRANSMIT VIA ERX SY CPT-4: G8553 04/04/2012 DESTRUCT PREMALG LESION (Cryosurgery) CPT-4: 52911 PRESCRIP TRANSMIT VIA ERX SY CPT-4: G8553 01/02/2012 PRESCRIP TRANSMIT VIA ERX SY CPT-4: G8553 09/04/2011 URINALYSIS NONAUTO W/O SCOPE CPT-4: 24903 07/31/2011 PRESCRIP TRANSMIT VIA ERX SY CPT-4: G8553 07/12/2011 PRESCRIP TRANSMIT VIA ERX SY CPT-4: G8553 05/09/2011 THER/PROPH/DIAG INJ SC/IM CPT-4: 26352 05/02/2011 KETOROLAC TROMETHAMINE INJ CPT-4: J1885 05/02/2011 PRESCRIP TRANSMIT VIA ERX SY CPT-4: G8553 04/25/2011 CUR TOBACCO NON-USER CPT-4: G8457 04/04/2011 PRESCRIP TRANSMIT VIA ERX SY CPT-4: G8553 04/04/2011 DRAIN/INJECT JOINT/BURSA CPT-4: 54901 03/01/2011 METHYLPREDNISOLONE 40 MG INJ CPT-4: J1030 03/01/2011 TRIAMCINOLONE ACET INJ NOS CPT-4: J3301 03/01/2011 DRAIN/INJECT JOINT/BURSA CPT-4: 86969 01/04/2011 METHYLPREDNISOLONE 40 MG INJ CPT-4: J1030 01/04/2011 TRIAMCINOLONE ACET INJ NOS CPT-4: J3301 01/04/2011 PRESCRIP TRANSMIT VIA ERX SY CPT-4: G8553 12/07/2010 PRESCRIP TRANSMIT VIA ERX SY CPT-4: G8553 10/09/2010 PRESCRIP TRANSMIT VIA ERX SY CPT-4: G8553 06/06/2010 DRAIN/INJECT JOINT/BURSA CPT-4: 64402 04/12/2010 TRIAMCINOLONE ACET INJ NOS CPT-4: J3301 04/12/2010 METHYLPREDNISOLONE 80 MG INJ CPT-4: J1040 04/12/2010 PRESCRIP TRANSMIT VIA ERX SY CPT-4: G8553 03/20/2010 THER/PROPH/DIAG INJ SC/IM CPT-4: 70651 01/30/2010 KETOROLAC TROMETHAMINE INJ CPT-4: J1885 01/30/2010 PRESCRIP TRANSMIT VIA ERX SY CPT-4: G8553 01/30/2010 DRAIN/INJECT JOINT/BURSA CPT-4: 67787 10/26/2009 TRIAMCINOLONE ACET INJ NOS CPT-4: J3301 10/26/2009 METHYLPREDNISOLONE 80 MG INJ CPT-4: J1040 10/26/2009 DRAINAGE OF SKIN ABSCESS CPT-4: 62485 10/04/2009 Vital Signs Date Vital 08/07/2022 Blood Pressure 1: 126/74 Code: 8480-6 Heart Rate 1: 73 bpm Respiratory Rate: 20 bpm SpO2: 97% Temperature: 36.2 (C) / 97.1 (F) We ight: 222 lbs Code: 86623-4 06/29/2022 Blood Pressure 1: 132/73 Code: 8480-6 BMI: 36.7 Code: 62669-7 Heart Rate 1: 74 bpm Height: 5'6" Code: 8302-2 SpO2: 96% Temperature: 3 6.4 (C) / 97.6 (F) Weight: 226 lbs Code: 22257-1 05/28/2022 Blood Pressure 1: 129/78 Code: 8480-6 BMI: 37.7 Code: 35973-0 Heart Rate 1: 72 bpm Height: 5'6" Code: 8302-2 SpO2: 95% Temperature: 3 6.2 (C) / 97.1 (F) Weight: 232 lbs Code: 08914-7 05/10/2022 Blood Pressure 1: 133/75 Code: 8480-6 BMI: 38.3 Code: 63668-0 Heart Rate 1: 68 bpm Height: 5'6" Code: 8302-2 SpO2: 98% Temperature: 3 6.2 (C) / 97.1 (F) Weight: 236 lbs Code: 50263-3 04/18/2022 Blood Pressure 1: 118/70 Code: 8480-6 Heart Rate 1: 86 bpm Respiratory Rate: 20 bpm SpO2: 96% Temperature: 36.6 (C) / 97.8 (F) We ight: 238 lbs Code: 93757-9 02/15/2022 Blood Pressure 1: 120/82 Code: 8480-6 Heart Rate 1: 88 bpm Respiratory Rate: 20 bpm SpO2: 98% Temperature: 36.1 (C) / 97.0 (F) We ight: 237 lbs Code: 41088-5 02/06/2022 Blood Pressure 1: 124/80 Code: 8480-6 BMI: 39.4 Code: 68012-2 Heart Rate 1: 76 bpm Height: 5'6" Code: 8302-2 Respiratory Rate: 20 bpm SpO2: 98% Temperature: 36.6 (C) / 97.9 (F) Weight: 242 lbs Code: 49054-4 02/01/2022 Blood Pressure 1: 144/100 Code: 8480-6 Heart Rat e 1: 108 bpm Respiratory Rate: 22 bpm SpO2: 96% Temperature: 36.4 (C) / 97.5 (F) 11/29/2021 Blood Pressure 1: 128/80 Code: 8480-6 Heart Rate 1: 56 bpm Respiratory Rate: 20 bpm SpO2: 97% Temperature: 36.7 (C) / 98.1 (F) We ight: 242 lbs Code: 85229-4 11/22/2021 Blood Pressure 1: 118/80 Code: 8480-6 Heart Rate 1: 84 bpm Respiratory Rate: 20 bpm SpO2: 99% Temperature: 36.3 (C) / 97.4 (F) 11/21/2021 Blood Pressure 1: 132/80 Code: 8480-6 Heart Rate 1: 98 bpm Respiratory Rate: 20 bpm SpO2: 99% Weight: 238 lbs Code: 67071 -7 11/09/2021 Blood Pressure 1: 136/86 Code: 8480-6 Heart Rate 1: 68 bpm Respiratory Rate: 20 bpm SpO2: 95% Temperature: 36.4 (C) / 97.5 (F) We ight: 244 lbs Code: 32364-9 10/31/2021 Blood Pressure 1: 128/80 Code: 8480-6 Heart Rate 1: 80 bpm Respiratory Rate: 28 bpm SpO2: 93% Temperature: 38.0 (C) / 100. 4 (F) 10/30/2021 Blood Pressure 1: 136/82 Code: 8480-6 Heart Rate 1: 120 bpm Respiratory Rate: 24 bpm SpO2: 95% Temperature: 38.0 (C) / 100. 4 (F) 09/05/2021 Blood Pressure 1: 118/84 Code: 8480-6 BMI: 38.5 Code: 14676-8 Heart Rate 1: 72 bpm Height: 5'7" Code: 8302-2 Respiratory Rate: 20 bpm SpO2: 95% Temperature: 36.3 (C) / 97.4 (F) Weight: 246 lbs Code: 68603-3 08/24/2021 Blood Pressure 1: 132/84 Code: 8480-6 Heart Rate 1: 76 bpm Respiratory Rate: 19 bpm SpO2: 98% Temperature: 36.7 (C) / 98.1 (F) We ight: Code: 65438-1 03/01/2021 Blood Pressure 1: 90/52 Code: 8480-6 Heart Rate 1: 66 bpm Respiratory Rate: 22 bpm SpO2: 97% 02/08/2021 Blood Pressure 1: 132/75 Code: 8480-6 Heart Rate 1: 74 bpm Respiratory Rate: 18 bpm SpO2: 98% Temperature: 36.3 (C) / 97.3 (F) We ight: 247 lbs Code: 03819-2 01/19/2021 Blood Pressure 1: 126/76 Code: 8480-6 Heart Rate 1: 76 bpm Respiratory Rate: 20 bpm SpO2: 98% Temperature: 37.1 (C) / 98.8 (F) We ight: 244 lbs Code: 33020-9 01/03/2021 Blood Pressure 1: 124/64 Code: 8480-6 BMI: 38.5 Code: 17536-2 Heart Rate 1: 76 bpm Height: 5'7" Code: 8302-2 Respiratory Rate: 20 bpm SpO2: 96% Temperature: 36.4 (C) / 97.6 (F) Weight: 246 lbs Code: 34419-3 11/29/2020 Blood Pressure 1: 119/68 Code: 8480-6 Heart Rate 1: 73 bpm Respiratory Rate: 20 bpm SpO2: 95% Temperature: 36.1 (C) / 96.9 (F) We ight: 245 lbs Code: 95875-2 09/29/2020 Blood Pressure 1: 136/79 Code: 8480-6 Heart Rate 1: 67 bpm Respiratory Rate: 15 bpm SpO2: 98% Temperature: 36.2 (C) / 97.1 (F) We ight: 237 lbs Code: 55715-6 09/19/2020 Blood Pressure 1: 135/82 Code: 8480-6 Heart Rate 1: 76 bpm Respiratory Rate: 17 bpm SpO2: 96% Temperature: 36.6 (C) / 97.8 (F) We ight: 238 lbs Code: 58728-3 08/10/2020 Blood Pressure 1: 126/82 Code: 8480-6 Heart Rate 1: 60 bpm Respiratory Rate: 20 bpm SpO2: 96% Temperature: 36.3 (C) / 97.3 (F) We ight: 238 lbs Code: 52151-2 08/01/2020 Temperature: 36.6 (C) / 97.8 (F) 07/13/2020 Blood Pressure 1: 132/80 Code: 8480-6 Heart Rate 1: 76 bpm Respiratory Rate: 20 bpm SpO2: 97% Temperature: 36.2 (C) / 97.2 (F) We ight: 228 lbs Code: 16648-0 07/05/2020 Temperature: 35.9 (C) / 96.7 (F) 06/22/2020 Blood Pressure 1: 134/82 Code: 8480-6 Heart Rate 1: 60 bpm Respiratory Rate: 20 bpm SpO2: 96% Temperature: 36.4 (C) / 97.6 (F) We ight: 235 lbs Code: 82832-4 05/17/2020 Blood Pressure 1: 141/72 Code: 8480-6 Heart Rate 1: 78 bpm Respiratory Rate: 16 bpm SpO2: 98% Temperature: 36.3 (C) / 97.3 (F) We ight: 232 lbs Code: 65020-6 03/14/2020 Blood Pressure 1: 126/92 Code: 8480-6 Heart Rate 1: 72 bpm Respiratory Rate: 22 bpm SpO2: 96% Temperature: 36.3 (C) / 97.4 (F) We ight: 225 lbs Code: 59026-8 03/07/2020 Blood Pressure 1: 124/86 Code: 8480-6 Heart Rate 1: 72 bpm Respiratory Rate: 24 bpm SpO2: 93% Temperature: 36.2 (C) / 97.1 (F) We ight: 227 lbs Code: 99308-4 12/21/2019 Blood Pressure 1: 114/72 Code: 8480-6 BMI: 36.2 Code: 92269-5 Heart Rate 1: 60 bpm Height: 5'7" Code: 8302-2 Respiratory Rate: 20 bpm SpO2: 97% Temperature: 36.7 (C) / 98.1 (F) Weight: 231 lbs Code: 94649-0 09/02/2019 Blood Pressure 1: 138/85 Code: 8480-6 Heart Rate 1: 76 bpm Respiratory Rate: 20 bpm SpO2: 96% Temperature: 36.3 (C) / 97.3 (F) We ight: 226 lbs Code: 01778-9 07/09/2019 Blood Pressure 1: 123/63 Code: 8480-6 BMI: 34.9 Code: 57130-0 Heart Rate 1: 64 bpm Height: 5'7" Code: 8302-2 Respiratory Rate: 17 bpm SpO2: 97% Temperature: 37.0 (C) / 98.6 (F) Weight: 223 lbs Code: 28243-7 04/15/2019 Blood Pressure 1: 110/82 Code: 8480-6 Heart Rate 1: 66 bpm SpO2: 98% Temperature: 36.1 (C) / 96.9 (F) Weight: 223 lbs Code: 78844-3 04/07/2019 Blood Pressure 1: 132/80 Code: 8480-6 Heart Rate 1: 68 bpm Temperature: 36.9 (C) / 98.4 (F) Weight: 222 lbs Code: 29239-5 03/25/2019 Blood Pressure 1: 108/70 Code: 8480-6 Heart Rate 1: 64 bpm Respiratory Rate: 20 bpm SpO2: 96% Temperature: 36.2 (C) / 97.2 (F) We ight: 221 lbs Code: 53962-1 03/18/2019 Blood Pressure 1: 138/82 Code: 8480-6 Heart Rate 1: 74 bpm SpO2: 99% Temperature: 36.1 (C) / 96.9 (F) Weight: 223 lbs Code: 85481-7 01/26/2019 Blood Pressure 1: 138/90 Code: 8480-6 Heart Rate 1: 68 bpm SpO2: 96% Temperature: 35.9 (C) / 96.7 (F) Weight: 227 lbs Code: 04221-2 01/08/2019 Blood Pressure 1: 134/78 Code: 8480-6 BMI: 36.8 Code: 45351-6 Heart Rate 1: 76 bpm Height: 5'7" Code: 8302-2 SpO2: 93% Temperature: 3 6.4 (C) / 97.6 (F) Weight: 235 lbs Code: 64488-7 01/06/2019 Blood Pressure 1: 116/80 Code: 8480-6 Heart Rate 1: 72 bpm Respiratory Rate: 20 bpm SpO2: 98% Temperature: 36.5 (C) / 97.7 (F) We ight: 232 lbs Code: 45237-5 12/11/2018 Blood Pressure 1: 120/82 Code: 8480-6 BMI: 36.2 Code: 84734-5 Heart Rate 1: 67 bpm Height: 5'7" Code: 8302-2 Respiratory Rate: 18 bpm SpO2: 96% Temperature: 35.9 (C) / 96.7 (F) Weight: 231 lbs Code: 05910-4 10/30/2018 Blood Pressure 1: 126/82 Code: 8480-6 Heart Rate 1: 80 bpm Respiratory Rate: 20 bpm SpO2: 96% Temperature: 36.8 (C) / 98.3 (F) We ight: 228 lbs Code: 69740-3 10/07/2018 Blood Pressure 1: 130/90 Code: 8480-6 Heart Rate 1: 76 bpm Respiratory Rate: 24 bpm SpO2: 97% Temperature: 36.0 (C) / 96.8 (F) We ight: 229 lbs Code: 10764-1 06/23/2018 Blood Pressure 1: 132/80 Code: 8480-6 Heart Rate 1: 72 bpm Respiratory Rate: 20 bpm SpO2: 98% Temperature: 36.7 (C) / 98.0 (F) We ight: 233 lbs Code: 47326-4 01/16/2018 Blood Pressure 1: 116/82 Code: 8480-6 Heart Rate 1: 72 bpm Respiratory Rate: 20 bpm SpO2: 96% Temperature: 36.9 (C) / 98.5 (F) We ight: 230 lbs Code: 78260-1 10/16/2017 Blood Pressure 1: 116/74 Code: 8480-6 BMI: 35.1 Code: 35900-0 Heart Rate 1: 76 bpm Height: 5'7" Code: 8302-2 Respiratory Rate: 20 bpm SpO2: 98% Temperature: 36.7 (C) / 98.1 (F) Weight: 224 lbs Code: 11178-7 09/12/2017 Blood Pressure 1: 124/78 Code: 8480-6 BMI: 34.6 Code: 86590-9 Heart Rate 1: 84 bpm Height: 5'7" Code: 8302-2 Respiratory Rate: 20 bpm SpO2: 95% Temperature: 36.6 (C) / 97.8 (F) Weight: 221 lbs Code: 01922-4 08/20/2017 Blood Pressure 1: 126/78 Code: 8480-6 Heart Rate 1: 92 bpm Height: 5'7" Code: 8302-2 Respiratory Rate: 20 bpm SpO2: 96% Temperature: 36 .9 (C) / 98.5 (F) 08/13/2017 Blood Pressure 1: 124/80 Code: 8480-6 BMI: 34.8 Code: 61928-9 Heart Rate 1: 80 bpm Height: 5'7" Code: 8302-2 Respiratory Rate: 20 bpm SpO2: 96% Temperature: 36.7 (C) / 98.0 (F) Weight: 222 lbs Code: 64983-4 07/29/2017 Blood Pressure 1: 114/70 Code: 8480-6 BMI: 34.5 Code: 39919-6 Heart Rate 1: 76 bpm Height: 5'7" Code: 8302-2 Respiratory Rate: 20 bpm SpO2: 97% Temperature: 36.9 (C) / 98.4 (F) Weight: 220 lbs Code: 81277-6 07/25/2017 Blood Pressure 1: 142/76 Code: 8480-6 BMI: 34.9 Code: 10053-8 Heart Rate 1: 92 bpm Height: 5'7" Code: 8302-2 Respiratory Rate: 18 bpm SpO2: 96% Temperature: 36.7 (C) / 98.1 (F) Weight: 223 lbs Code: 67166-0 06/10/2017 Blood Pressure 1: 136/82 Code: 8480-6 BMI: 34.3 Code: 68739-0 Heart Rate 1: 68 bpm Height: 5'7" Code: 8302-2 Respiratory Rate: 20 bpm SpO2: 96% Temperature: 36.7 (C) / 98.0 (F) Weight: 219 lbs Code: 11063-3 05/28/2017 Blood Pressure 1: 136/70 Code: 8480-6 BMI: 34.1 Code: 40496-4 Heart Rate 1: 84 bpm Height: 5'7" Code: 8302-2 Respiratory Rate: 20 bpm SpO2: 95% Temperature: 35.9 (C) / 96.6 (F) Weight: 218 lbs Code: 35308-3 04/04/2017 Blood Pressure 1: 122/78 Code: 8480-6 BMI: 33.4 Code: 81586-4 Heart Rate 1: 68 bpm Height: 5'7" Code: 8302-2 Respiratory Rate: 20 bpm SpO2: 96% Temperature: 36.7 (C) / 98.0 (F) Weight: 213 lbs Code: 34731-0 11/28/2016 Blood Pressure 1: 114/82 Code: 8480-6 BMI: 33.7 Code: 71984-4 Heart Rate 1: 72 bpm Height: 5'7" Code: 8302-2 Respiratory Rate: 20 bpm SpO2: 98% Temperature: 36.4 (C) / 97.6 (F) Weight: 215 lbs Code: 97375-9 06/05/2016 Blood Pressure 1: 104/68 Code: 8480-6 BMI: 33.7 Code: 69462-6 Heart Rate 1: 68 bpm Height: 5'7" Code: 8302-2 Respiratory Rate: 20 bpm SpO2: 96% Temperature: 36.8 (C) / 98.2 (F) Weight: 215 lbs Code: 52482-6 11/08/2015 Blood Pressure 1: 122/70 Code: 8480-6 BMI: 33.8 Code: 23282-2 Heart Rate 1: 80 bpm Height: 5'7" Code: 8302-2 Respiratory Rate: 20 bpm Temperatu re: 36.8 (C) / 98.2 (F) Weight: 216 lbs Code: 02756-5 07/19/2015 Blood Pressure 1: 122/70 Code: 8480-6 BMI: 33.0 Code: 99729-0 Heart Rate 1: 80 bpm Height: 5'7" Code: 8302-2 Respiratory Rate: 18 bpm Temperatu re: 35.9 (C) / 96.6 (F) Weight: 211 lbs Code: 63104-0 03/28/2015 Blood Pressure 1: 124/70 Code: 8480-6 BMI: 31.8 Code: 29900-5 Heart Rate 1: 72 bpm Height: 5'7" Code: 8302-2 Respiratory Rate: 20 bpm Temperatu re: 36.8 (C) / 98.2 (F) Weight: 203 lbs Code: 41176-6 02/08/2015 Blood Pressure 1: 98/58 Code: 8480-6 BMI: 32.1 C ode: 75790-2 Heart Rate 1: 84 bpm Height: 5'7" Code: 8302-2 Respiratory Rate: 20 bpm Temperatu re: 36.7 (C) / 98.0 (F) Weight: 205 lbs Code: 34471-6 01/11/2015 Blood Pressure 1: 118/78 Code: 8480-6 BMI: 32.1 Code: 88237-6 Heart Rate 1: 84 bpm Height: 5'7" Code: 8302-2 Respiratory Rate: 20 bpm Temperatu re: 36.6 (C) / 97.9 (F) Weight: 205 lbs Code: 10925-9 11/24/2014 Blood Pressure 1: 124/80 Code: 8480-6 BMI: 32.0 Code: 60895-1 Heart Rate 1: 76 bpm Height: 5'7" Code: 8302-2 Respiratory Rate: 20 bpm Temperatu re: 36.2 (C) / 97.1 (F) Weight: 204 lbs Code: 16809-3 11/19/2014 Blood Pressure 1: 132/78 Code: 8480-6 BMI: 32.7 Code: 18942-2 Heart Rate 1: 68 bpm Height: 5'7" Code: 8302-2 Respiratory Rate: 20 bpm SpO2: 98% Temperature: 36.7 (C) / 98.0 (F) Weight: 209 lbs Code: 30957-8 10/27/2014 Blood Pressure 1: 118/76 Code: 8480-6 BMI: 32.6 Code: 59795-5 Heart Rate 1: 64 bpm Height: 5'7" Code: 8302-2 Respiratory Rate: 20 bpm Temperatu re: 36.7 (C) / 98.0 (F) Weight: 208 lbs Code: 56550-5 09/23/2014 Blood Pressure 1: 118/68 Code: 8480-6 BMI: 34.3 Code: 09481-4 Heart Rate 1: 78 bpm Height: 5'7" Code: 8302-2 Respiratory Rate: 22 bpm Temperatu re: 36.4 (C) / 97.6 (F) Weight: 219 lbs Code: 28226-6 07/28/2014 Blood Pressure 1: 126/80 Code: 8480-6 BMI: 33.5 Code: 60409-6 Heart Rate 1: 76 bpm Height: 5'7" Code: 8302-2 Respiratory Rate: 20 bpm Temperatu re: 36.4 (C) / 97.6 (F) Weight: 214 lbs Code: 76841-1 03/30/2014 Blood Pressure 1: 128/80 Code: 8480-6 BMI: 35.2 Code: 81770-8 Heart Rate 1: 88 bpm Height: 5'7" Code: 8302-2 Respiratory Rate: 20 bpm Temperatu re: 36.4 (C) / 97.6 (F) Weight: 225 lbs Code: 08386-0 11/24/2013 Blood Pressure 1: 124/82 Code: 8480-6 BMI: 35.6 Code: 73076-1 Heart Rate 1: 80 bpm Height: 5'7" Code: 8302-2 Respiratory Rate: 22 bpm Temperatu re: 36.2 (C) / 97.1 (F) Weight: 227 lbs Code: 55880-6 08/25/2013 Blood Pressure 1: 128/80 Code: 8480-6 BMI: 37.4 Code: 24488-8 Heart Rate 1: 76 bpm Height: 5'7" Code: 8302-2 Respiratory Rate: 20 bpm Temperatu re: 36.6 (C) / 97.9 (F) Weight: 239 lbs Code: 16349-6 06/29/2013 Blood Pressure 1: 106/78 Code: 8480-6 BMI: 38.1 Code: 16825-6 Heart Rate 1: 80 bpm Height: 5'7" Code: 8302-2 Respiratory Rate: 20 bpm Temperatu re: 36.6 (C) / 97.9 (F) Weight: 243 lbs Code: 76762-2 05/26/2013 Blood Pressure 1: 122/80 Code: 8480-6 BMI: 39.3 Code: 61206-9 Heart Rate 1: 80 bpm Height: 5'7" Code: 8302-2 Respiratory Rate: 20 bpm Temperatu re: 36.9 (C) / 98.4 (F) Weight: 251 lbs Code: 97960-3 05/06/2013 Blood Pressure 1: 128/78 Code: 8480-6 BMI: 39.2 Code: 76595-3 Heart Rate 1: 76 bpm Height: 5'7" Code: 8302-2 Respiratory Rate: 22 bpm Temperatu re: 35.8 (C) / 96.4 (F) Weight: 250 lbs Code: 70914-4 04/23/2013 Blood Pressure 1: 132/92 Code: 8480-6 BMI: 39.6 Code: 06900-9 Heart Rate 1: 88 bpm Height: 5'7" Code: 8302-2 Respiratory Rate: 28 bpm SpO2: 97% Temperature: 36.5 (C) / 97.7 (F) Weight: 253 lbs Code: 53187-7 03/31/2013 Blood Pressure 1: 122/80 Code: 8480-6 BMI: 39.0 Code: 01150-1 Heart Rate 1: 84 bpm Height: 5'7" Code: 8302-2 Respiratory Rate: 20 bpm Temperatu re: 36.6 (C) / 97.8 (F) Weight: 249 lbs Code: 85931-9 03/05/2013 Blood Pressure 1: 120/80 Code: 8480-6 BMI: 39.2 Code: 05419-9 Heart Rate 1: 60 bpm Height: 5'7" Code: 8302-2 Respiratory Rate: 22 bpm Temperatu re: 35.9 (C) / 96.6 (F) Weight: 250 lbs Code: 00429-2 02/04/2013 Blood Pressure 1: 124/80 Code: 8480-6 BMI: 38.4 Code: 19358-5 Heart Rate 1: 80 bpm Height: 5'7" Code: 8302-2 Respiratory Rate: 20 bpm Temperatu re: 36.4 (C) / 97.6 (F) Weight: 245 lbs Code: 42405-8 11/27/2012 Blood Pressure 1: 127/83 Code: 8480-6 Te mperature: 36.1 (C) / 96.9 (F) Weight: 243 lbs 2 oz Code: 60140-3 11/11/2012 Blood Pressure 1: 126/82 Code: 8480-6 BMI: 37.4 Code: 06160-5 Heart Rate 1: 80 bpm Height: 5'7" Code: 8302-2 Respiratory Rate: 20 bpm Temperatu re: 36.8 (C) / 98.2 (F) Weight: 239 lbs Code: 27288-7 10/20/2012 Blood Pressure 1: 114/80 Code: 8480-6 BMI: 37.1 Code: 71130-1 Heart Rate 1: 104 bpm Height: 5'7" Code: 8302-2 Respiratory Rate: 20 bpm Temperatu re: 36.9 (C) / 98.4 (F) Weight: 237 lbs Code: 25916-4 09/03/2012 Blood Pressure 1: 118/72 Code: 8480-6 BMI: 37.3 Code: 27850-9 Heart Rate 1: 70 bpm Height: 5'7" Code: 8302-2 Temperature: 35.6 (C) / 96.0 (F) Weight: 238 lbs Code: 77192-8 07/23/2012 Blood Pressure 1: 124/78 Code: 8480-6 BMI: 36.8 Code: 01053-0 Heart Rate 1: 68 bpm Height: 5'7" Code: 8302-2 Temperature: 35.6 (C) / 96.0 (F) Weight: 235 lbs Code: 45026-5 05/20/2012 Blood Pressure 1: 112/70 Code: 8480-6 BMI: 37.1 Code: 63835-2 Heart Rate 1: 76 bpm Height: 5'7" Code: 8302-2 Respiratory Rate: 20 bpm Temperatu re: 36.7 (C) / 98.1 (F) Weight: 237 lbs Code: 88264-7 04/04/2012 Blood Pressure 1: 110/64 Code: 8480-6 BMI: 37.1 Code: 41368-6 Heart Rate 1: 68 bpm Height: 5'7" Code: 8302-2 Temperature: 36.1 (C) / 97.0 (F) Weight: 237 lbs Code: 29281-3 02/20/2012 Blood Pressure 1: 136/78 Code: 8480-6 BMI: 37.1 Code: 05005-9 Heart Rate 1: 72 bpm Height: 5'7" Code: 8302-2 Respiratory Rate: 20 bpm Temperatu re: 36.7 (C) / 98.0 (F) Weight: 237 lbs Code: 95101-1 01/02/2012 Blood Pressure 1: 122/70 Code: 8480-6 BMI: 37.1 Code: 13540-1 Heart Rate 1: 76 bpm Height: 5'7" Code: 8302-2 Respiratory Rate: 20 bpm Temperatu re: 37.0 (C) / 98.6 (F) Weight: 237 lbs Code: 99098-5 09/04/2011 Blood Pressure 1: 120/84 Code: 8480-6 BMI: 35.4 Code: 72056-3 Heart Rate 1: 68 bpm Height: 5'7" Code: 8302-2 Temperature: 30.0 (C) / 86.0 (F) Weight: 226 lbs Code: 50127-3 08/14/2011 Blood Pressure 1: 120/82 Code: 8480-6 BMI: 36.5 Code: 83889-9 Heart Rate 1: 80 bpm Height: 5'7" Code: 8302-2 Temperature: 36.6 (C) / 97.8 (F) Weight: 233 lbs Code: 62794-5 07/31/2011 Blood Pressure 1: 138/86 Code: 8480-6 BMI: 37.0 Code: 43388-7 Heart Rate 1: 94 bpm Height: 5'7" Code: 8302-2 Temperature: 35.4 (C) / 95.7 (F) Weight: 236 lbs Code: 85395-2 07/25/2011 Blood Pressure 1: 128/80 Code: 8480-6 BMI: 37.0 Code: 28907-5 Heart Rate 1: 80 bpm Height: 5'7" Code: 8302-2 Temperature: 35.6 (C) / 96.0 (F) Weight: 236 lbs Code: 49013-4 07/12/2011 Blood Pressure 1: 132/80 Code: 8480-6 BMI: 37.0 Code: 76447-3 Heart Rate 1: 96 bpm Height: 5'7" Code: 8302-2 Respiratory Rate: 20 bpm Temperatu re: 36.3 (C) / 97.3 (F) Weight: 236 lbs Code: 62559-3 05/09/2011 Blood Pressure 1: 106/78 Code: 8480-6 BMI: 36.6 Code: 32922-1 Heart Rate 1: 72 bpm Height: 5'7" Code: 8302-2 Respiratory Rate: 20 bpm Temperatu re: 36.4 (C) / 97.6 (F) Weight: 234 lbs Code: 92237-4 05/02/2011 Blood Pressure 1: 96/72 Code: 8480-6 BMI: 36.6 C ode: 40133-3 Heart Rate 1: 108 bpm Height: 5'7" Code: 8302-2 Respiratory Rate: 24 bpm Temperatu re: 36.7 (C) / 98.0 (F) Weight: 234 lbs Code: 17153-0 04/25/2011 Blood Pressure 1: 120/72 Code: 8480-6 BMI: 36.5 Code: 71180-1 Heart Rate 1: 70 bpm Height: 5'7" Code: 8302-2 Temperature: 36.7 (C) / 98.0 (F) Weight: 233 lbs Code: 23381-4 04/04/2011 Blood Pressure 1: 126/92 Code: 8480-6 BMI: 36.5 Code: 27176-5 Heart Rate 1: 84 bpm Height: 5'7" Code: 8302-2 Respiratory Rate: 20 bpm Temperatu re: 36.2 (C) / 97.2 (F) Weight: 233 lbs Code: 66219-8 03/01/2011 Blood Pressure 1: 132/78 Code: 8480-6 Heart Rate 1: 88 bpm Temperature: 36.8 (C) / 98.2 (F) Weight: 231 lbs Code: 25946-7 01/04/2011 Blood Pressure 1: 122/78 Code: 8480-6 BMI: 37.0 Code: 64719-5 Heart Rate 1: 80 bpm Height: 5'7" Code: 8302-2 Temperature: 37.0 (C) / 98.6 (F) Weight: 236 lbs Code: 12482-4 12/07/2010 Blood Pressure 1: 132/92 Code: 8480-6 Heart Rate 1: 98 bpm Temperature: 36.2 (C) / 97.2 (F) Weight: 237 lbs Code: 39938-7 10/09/2010 Blood Pressure 1: 128/80 Code: 8480-6 Heart Rate 1: 72 bpm Temperature: 36.5 (C) / 97.7 (F) Weight: 244 lbs Code: 96157-6 08/07/2010 Blood Pressure 1: 114/80 Code: 8480-6 Heart Rate 1: 72 bpm Temperature: 36.2 (C) / 97.1 (F) Weight: 245 lbs Code: 89064-8 06/06/2010 Blood Pressure 1: 132/86 Code: 8480-6 Heart Rate 1: 80 bpm Temperature: 36.8 (C) / 98.2 (F) Weight: 242 lbs Code: 89015-9 04/12/2010 Blood Pressure 1: 126/82 Code: 8480-6 Heart Rate 1: 72 bpm Temperature: 36.8 (C) / 98.2 (F) Weight: 237 lbs Code: 60632-7 03/20/2010 Blood Pressure 1: 124/78 Code: 8480-6 Heart Rate 1: 76 bpm Temperature: 36.1 (C) / 97.0 (F) Weight: 239 lbs Code: 79021-5 01/30/2010 Blood Pressure 1: 118/80 Code: 8480-6 Heart Rate 1: 84 bpm Temperature: 37.1 (C) / 98.7 (F) Weight: 239 lbs Code: 68704-4 01/09/2010 Blood Pressure 1: 120/72 Code: 8480-6 BMI: 36.8 Code: 39511-3 Heart Rate 1: 80 bpm Height: 5'7" Code: 8302-2 Temperature: 36.1 (C) / 97.0 (F) Weight: 235 lbs Code: 85615-1 11/07/2009 Blood Pressure 1: 140/36 Cod e: 8480-6 10/26/2009 Blood Pressure 1: 126/82 Code: 8480-6 BMI: 36.9 Code: 73232-1 Heart Rate 1: 84 bpm Height: 5'7" Code: 8302-2 Temperature: 36.5 (C) / 97.7 (F) Weight: 234 lbs Code: 06004-4 10/17/2009 Blood Pressure 1: 140/88 Code: 8480-6 BMI: 36.3 Code: 02489-6 Heart Rate 1: 88 bpm Height: 5'7" Code: 8302-2 Temperature: 36.7 (C) / 98.0 (F) Weight: 232 lbs Code: 95593-8 10/04/2009 Blood Pressure 1: 140/90 Code: 8480-6 BMI: 36.3 Code: 42957-2 Heart Rate 1: 84 bpm Height: 5'7" Code: 8302-2 Temperature: 36.4 (C) / 97.6 (F) Weight: 232 lbs Code: 03801-0 09/21/2009 Blood Pressure 1: 136/82 Code: 8480-6 BMI: 36.3 Code: 22261-8 Heart Rate 1: 88 bpm Height: 5'7" Code: 8302-2 Temperature: 35.8 (C) / 96.4 (F) Weight: 232 lbs Code: 14482-5 Functional Status No Functional Status data Reason [...] 09/04/2011 chest congestion 09/04/2011 follow up 08/14/2011 [facility] 08/14/2011 venous thrombosis 08/14/2011 abdominal [...] Encounter Performer Location Location Address Codes Date ([id number]) OFFICE/OUTPATIENT VISIT EST Diagnosis: Hypothyroidism[ICD10: E03.9] Diagnosis: Essential (primary) hypertension[ICD10: I10] Diagnosis: Mixed hyperlipidemia[ICD10: E78.2] Diagnosis: Stress at home[ICD10: F43.9] Jayna VANESSA [address] [address] CPT-4: 91391 08/07/2022 ([id number]) OFFICE/OUTPATIENT VISIT EST Diagnosis: Acute cystitis[ICD10: N30.00] Marlene Bel BRUCE[address] [address] CPT-4: 61185 06/29/2022 ([id number]) OFFICE/OUTPATIENT VISIT EST Diagnosis: Depression[ICD10: F32.A] Diagnosis: Hypothyroidism[ICD10: E03.9] Jayna VANESSA [address] [address] CPT-4: 79118 05/28/2022 ([id number]) OFFICE/OUTPATIENT VISIT EST Diagnosis: Depression[ICD10: F32.A] Diagnosis: Fatigue[ICD10: R53.83] Diagnosis: Hypothyroidism[ICD10: E03.9] Diagnosis: Hyperglycemia[ICD10: R73.9] Jayna GUTIERREZ S. 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] Jayna VANESSA DO [address] [address] CPT-4: 52912 02/15/2022 ([id number]) Annual depression screening, 15 minutes Diagnosis: Encounter for general adult medical examination without abnormal findings[ICD10: Z00.00] Diagnosis: Essential (primary) hypertension[ICD10: I10] Diagnosis: Mixed hyperlipidemia[ICD10: E78.2] Diagnosis: Hypothyroidism, unspecified[ICD10: E03.9] Diagnosis: Chronic obstructive pulmonary disease, unspecified[ICD10: J44.9] Jayna VANESSA DO [address] [address] CPT-4: G0444 02/06/2022 ([id number]) OFFICE/OUTPATIENT VISIT EST Diagnosis: 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] Diagnosis: Vision changes[ICD10: H53.9] Latasha Anand JAYNA VANESSA DO [address] [address] CPT-4: 25702 02/01/2022 ([id number]) OFFICE/OUTPATIENT VISIT EST Diagnosis: Diarrhea[ICD10: R19.7] Diagnosis: Cough[ICD10: R05.9] Jayna VANESSA DO [address] [address] CPT-4: 51601 11/30/19 ([id number]) OFFICE/OUTPATIENT VISIT EST Diagnosis: Post-viral cough syndrome[ICD10: R05.8] Diagnosis: Otalgia of both ears[ICD10: H92.03] Diagnosis: Diarrhea[ICD10: R19.7] Jayna GUTIERREZ Daniel Villalba DO [address] [address] CPT-4: 53630 11/22/2021 ([id number]) OFFICE/OUTPATIENT VISIT EST Diagnosis: Diarrhea of presumed infectious origin[ICD10: R19.7] Diagnosis: Altered taste[ICD10: R43.2] Diagnosis: Chronic bronchitis[ICD10: J42] Diagnosis: History of recent pneumonia[ICD10: Z87.01] Latasha Kika JAYNA Daniel VANESSA [address] [address] CPT- 4: 14259 11/21/2021 ([id number]) OFFICE/OUTPATIENT VISIT EST Diagnosis: Serous otitis media[ICD10: H65.90] Diagnosis: Postnasal drip[ICD10: R09.82] Diagnosis: Pneumonia[ICD10: J18.9] Jayna GUTIERREZ TracyPaige JANIS ER DO [address] [address] CPT-4: 65521 11/09/2021 ([id number]) NO CHARGE Diagnosis: Pneumonia[ICD10: J18.9] Diagnosis: Respiratory distress[ICD10: R06.03] Jayna KENNEY Daniel VANESSA DO [address] [address] CPT-4: 41963 10/31/2021 ([id number]) OFFICE/OUTPATIENT VISIT EST Diagnosis: Vertigo[ICD10: R42] Diagnosis: Nausea[ICD10: R11.0] Diagnosis: Pneumonia[ICD10: J18.9] Jayna GUTIERREZ TracyPaige JANIS ER DO [address] [address] CPT-4: 51188 10/30/2021 ([id number]) OFFICE/OUTPATIENT VISIT EST Diagnosis: Cervicalgia[ICD10: M54.2] Jayna ELAM [address] [address] CPT-4: 31382 09/05/2021 ([id number]) OFFICE/OUTPATIENT VISIT EST Diagnosis: 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] Diagnosis: Seronegative rheumatoid arthritis[ICD10: M06.00] Latasha VANESSA DO [address] [address] CPT- 4: 22650 08/24/2021 ([id number]) OFFICE/OUTPATIENT VISIT EST Diagnosis: Upper respiratory infection[ICD10: J06.9] Diagnosis: Contact with and (suspected) exposure to other viral communicable diseases[ICD10: Z20.828] Latasha VANESSA [address] [address] CPT-4: 00998 07/04/2021 ([id number]) NURSE/OUTPATIENT VISIT EST Diagnosis: FLU VACCINE[ICD10: Z23] Jayna JIANG [address] [address] CPT-4: 69744 03/29/2021 ([id number]) OFFICE/OUTPATIENT VISIT EST Diagnosis: Vasovagal episode[ICD10: R55] Diagnosis: Orthostatic hypotension[ICD10: I95.1] Latasha VANESSA [facility] [address] [place] [address] CPT-4: 52684 03/01/2021 ([id number]) OFFICE/OUTPATIENT VISIT EST Diagnosis: Sebaceous cyst of right axilla[ICD10: L72.3] Latasha VANESSA DO [address] [address] CPT- 4: 42957 02/08/2021 ([id number]) OFFICE/OUTPATIENT VISIT EST Diagnosis: Contact dermatitis[ICD10: L25.9] Jayna VANESSA [address] [address] CPT-4: 90392 01/19/2021 ([id number]) OFFICE/OUTPATIENT VISIT EST Diagnosis: Upper respiratory infection[ICD10: J06.9] Diagnosis: COPD exacerbation[ICD10: J44.1] Latasha VANESSA DO [address] [address] CPT-4: 22713 11/29/2020 ([id number]) OFFICE/OUTPATIENT VISIT EST Diagnosis: Sinusitis[ICD10: J32.9] Diagnosis: Acute pansinusitis, recurrence not specified[ICD10: J01.40] Latasha VANESSA [address] [address] CPT-4: 11104 09/29/2020 OFFICE/OUTPATIENT VISIT EST Diagnosis: Other seasonal allergic rhinitis[ICD10: J30.2] Diagnosis: Chronic bronchitis[ICD10: J42] Diagnosis: 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] Diagnosis: Middle ear effusion[ICD10: H65.90] Diagnosis: Fluid level behind tympanic membrane of both ears[ICD10: H65.93] Latasha VANESSA [address] [address] CPT-4: 64253 09/19/2020 ([id number]) OFFICE/OUTPATIENT VISIT EST Diagnosis: Right-sided tinnitus[ICD10: H93.11] Jayna Dionicioallie VILLARREALJEREMIAH VANESSA [address] [address] CPT-4: 14932 08/10/2020 ([id number]) OFFICE/OUTPATIENT VISIT EST Diagnosis: Dysfunction of right eustachian tube[ICD10: H69.81] Diagnosis: Right-sided tinnitus[ICD10: H93.11] Jayna Vanessa [address] [address] CPT-4: 51985 2020 ([id number]) OFFICE/OUTPATIENT VISIT EST Diagnosis: Pyelonephritis[ICD10: N12] Diagnosis: Anemia[ICD10: D64.9] Diagnosis: Blood in stool[ICD10: K92.1] Jayna Greenbergleydaapolinar VANESSA DO [address] [address] CPT-4: 83858 07/13/2020 ([id number]) OFFICE/OUTPATIENT VISIT EST Diagnosis: Acute gastroenteritis[ICD10: K52.9] Jayna Dionicioallie MORILLOAlecia VANESSA [address] [address] CPT-4: 16967 07/05/2020 ([id number]) OFFICE/OUTPATIENT VISIT EST Diagnosis: Essential hypertension[ICD10: I10] Diagnosis: Hypothyroidism, unspecified[ICD10: E03.9] Diagnosis: Metabolic syndrome[ICD10: E88.81] Diagnosis: Mixed hyperlipidemia[ICD10: E78.2] Diagnosis: Jhvqg-6-mtsmnpwcyyd 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] Jayna Dionicioallie JAYNA Daniel VANESSA [facility] [address] [place] [address] CPT- 4: 41745 06/22/2020 ([id number]) OFFICE/OUTPATIENT VISIT EST Diagnosis: Urinary tract infection[ICD10: N39.0] Jayna GERBER Daniel VANESSA [address] [address] CPT-4: 77463 05/17/2020 ([id number]) OFFICE/OUTPATIENT VISIT EST Diagnosis: Right pulmonary embolus[ICD10: I26.99] Jayna MARIA Daniel GREENBERGNDAPOLINAR [address] [address] CPT-4: 31102 03/14/2020 ([id number]) OFFICE/OUTPATIENT VISIT EST Diagnosis: COVID-19[ICD10: U07.1] Diagnosis: Pneumonia[ICD10: J18.9] Diagnosis: Dyspnea[ICD10: R06.00] Jayna Villalba DO [facility] [address] [place] [address] CPT-4: 60654 03/07/2020 ([id number]) OFFICE/OUTPATIENT VISIT EST Diagnosis: Upper respiratory infection[ICD10: J06.9] Genesis VANESSA DO [facility] [address] [place] [address] CPT-4: 51928 02/11/2020 ([id number]) OFFICE/OUTPATIENT VISIT EST Diagnosis: Dermatitis[ICD10: L30.9] Diagnosis: Urticaria[ICD10: L50.9] Jayna Vanessa [facility] [address] [place] [address] CPT-4: 62867 09/29/2019 ([id number]) OFFICE/OUTPATIENT VISIT EST Diagnosis: Bone spur of right foot[ICD10: M77.51] Diagnosis: Recurrent UTI[ICD10: N39.0] Diagnosis: MRSA (methicillin resistant staph aureus) culture positive[ICD10: Z22.322] Jayna Vanessa [facility] [address] [place] [address] CPT-4: 70860 09/14/2019 ([id number]) NURSE/OUTPATIENT VISIT EST Diagnosis: Urinary tract infection[ICD10: N39.0] Jayna VANESSA DO [facility] [address] [place] [address] CPT-4: 96692 09/11/2019 ([id number]) NURSE/OUTPATIENT VISIT EST Diagnosis: Urinary tract infection, site not specified[ICD10: N39.0] Jayna GREENBERGNDER DO [facility] [address] [place] [address] CPT-4: 91484 09/08/2019 ([id number]) NURSE/OUTPATIENT VISIT EST Diagnosis: Urinary tract infection, site not specified[ICD10: N39.0] Jayna VANESSA DO [facility] [address] [place] [address] CPT-4: 84956 09/07/2019 ([id number]) OFFICE/OUTPATIENT VISIT EST Diagnosis: Pelvic pain in female[ICD10: R10.2] Diagnosis: Urinary frequency[ICD10: R35.0] [facility] [address] [place] [address] CPT-4: 21415 09/02/2019 ([id number]) OFFICE/OUTPATIENT VISIT EST Diagnosis: Sinusitis[ICD10: J32.9] [facility] [address] [place] [address] CPT-4: 92874 07/09/2019 ([id number]) OFFICE/OUTPATIENT VISIT EST Diagnosis: UTI (urinary tract infection)[ICD10: N39.0] Diagnosis: FLU VACCINE[ICD10: Z23] [facility] [address] [place] [address] CPT-4: 23391 04/15/2019 ([id number]) OFFICE/OUTPATIENT VISIT EST Diagnosis: Pain in right leg[ICD10: M79.604] Genesis BRUCEER DO [address] [address] CPT-4: 84083 04/07/2019 ([id number]) OFFICE/OUTPATIENT VISIT EST Diagnosis: Diverticulitis of large intestine without perforation or abscess without bleeding[ICD10: K57.32] Diagnosis: Cystitis[ICD10: N30.90] Jayna [facility] [address] [place] [address] CPT-4: 82975 03/25/2019 ([id number]) OFFICE/OUTPATIENT VISIT EST Diagnosis: Abdominal pain[ICD10: R10.9] Diagnosis: Cystitis[ICD10: N30.90] Jyana [facility] [address] [place] [address] CPT-4: 30134 03/18/2019 ([id number]) OFFICE/OUTPATIENT VISIT EST Diagnosis: Diverticulitis of large intestine without perforation or abscess without bleeding[ICD10: K57.32] Diagnosis: Generalized abdominal pain[ICD10: R10.84] Diagnosis: Urinary tract infection, site not specified[ICD10: N39.0] Genesis VANESSA DO [address] [address] CPT-4: 79713 01/26/2019 ([id number]) OFFICE/OUTPATIENT VISIT EST Diagnosis: Mild intermittent asthma with (acute) exacerbation[ICD10: J45.21] Diagnosis: Allergic rhinitis due to pollen[ICD10: J30.1] Jayna VANESSA DO [address] [address] CPT- 4: 42434 01/08/2019 ([id number]) OFFICE/OUTPATIENT VISIT EST Diagnosis: Mild intermittent asthma with (acute) exacerbation[ICD10: J45.21] Diagnosis: URI, ACUTE[ICD10: J06.9] Diagnosis: Urinary tract infection, site not specified[ICD10: N39.0] Jayna VANESSA DO [address] [address] CPT-4: 34109 01/06/2019 ([id number]) OFFICE/OUTPATIENT VISIT EST Diagnosis: Benign paroxysmal vertigo, bilateral[ICD10: H81.13] Diagnosis: Migraine without aura, not intractable, without status migrainosus[ICD10: G43.009] Jayna VANESSA DO [facility] [address] [place] [address] CPT-4: 45332 10/30/2018 ([id number]) OFFICE/OUTPATIENT VISIT EST Diagnosis: Acute bronchitis, unspecified[ICD10: J20.9] Diagnosis: Cough[ICD10: R05] Diagnosis: Other seasonal allergic rhinitis[ICD10: J30.2] Stacey Feng JAYNA VANESSA DO [facility] [address] [place] [address] CPT- 4: 82780 10/07/2018 ([id number]) OFFICE/OUTPATIENT VISIT EST Diagnosis: Pain in unspecified joint[ICD10: M25.50] Diagnosis: Pain in right ankle and joints of right foot[ICD10: M25.571] Diagnosis: Other specified disorders of bone density and structure, unspecified site[ICD10: M85.80] Janya GUTIERREZ TracyPaige DIONICIONDER DO [facility] [address] [place] [address] CPT-4: 02297 06/23/2018 ([id number]) OFFICE/OUTPATIENT VISIT EST Diagnosis: Hypothyroidism, unspecified[ICD10: E03.9] Diagnosis: Mixed hyperlipidemia[ICD10: E78.2] Jayna ALVARENGA SPaige DIONICIONDER DO [facility] [address] [place] [address] CPT-4: 62780 01/16/2018 ([id number]) OFFICE/OUTPATIENT VISIT EST Diagnosis: Cervicalgia[ICD10: M54.2] Genesis Jolenerylan GUTIERREZ TracyPaige DIONICIO NDER DO [address] [address] CPT-4: 95516 10/16/2017 ([id number]) OFFICE/OUTPATIENT VISIT EST Diagnosis: Headache[ICD10: R51] Diagnosis: Dizziness and giddiness[ICD10: R42] Jayna KENNEY SPaige DIONICIONDER DO [address] [address] CPT-4: 04602 09/12/2017 OFFICE/OUTPATIENT VISIT EST Diagnosis: Cough[ICD10: R05] Genesis Jolenerylan GUTIERREZ SPaige DIONICIONDER DO [facility] [address] [place] [address] CPT-4: 50233 08/20/2017 ([id number]) OFFICE/OUTPATIENT VISIT EST Diagnosis: COUGH[ICD10: R05] Jayna GUTIERREZ SPaige DIONICIONDER DO [facility] [address] [place] [address] CPT-4: 57828 08/13/19 18 ([id number]) OFFICE/OUTPATIENT VISIT EST Diagnosis: Acute bronchospasm[ICD10: J98.01] Jayna Thomas SPaige ORENDER [address] [address] CPT-4: 40270 07/29/2017 OFFICE/OUTPATIENT VISIT EST Diagnosis: Influenza due to identified novel influenza A virus with other respiratory manifestations[ICD10: J09.X2] Genesis VANESSA DO [address] [address] CPT-4: 36712 07/25/2017 ([id number]) OFFICE/OUTPATIENT VISIT EST Diagnosis: Pain in unspecified joint[ICD10: M25.50] Jayna VANESSA DO [address] [address] CPT- 4: 33058 06/10/2017 OFFICE/OUTPATIENT VISIT EST Diagnosis: Acute bronchitis, unspecified[ICD10: J20.9] Genesis VANESSA [address] [address] CPT- 4: 45415 05/28/2017 ([id number]) OFFICE/OUTPATIENT VISIT EST Diagnosis: Hypothyroidism, unspecified[ICD10: E03.9] Diagnosis: Mixed hyperlipidemia[ICD10: E78.2] Diagnosis: Nloid-6-wqhpdeseiyg 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] Diagnosis: Sebaceous cyst[ICD10: L72.3] Jayna VANESSA [address] [address] CPT-4: 94255 11/28/2016 ([id number]) OFFICE/OUTPATIENT VISIT EST Diagnosis: Right upper quadrant pain[ICD10: R10.11] Diagnosis: Epigastric pain[ICD10: R10.13] Jayna VANESSA [address] [address] CPT-4: 49976 06/05/2016 ([id number]) OFFICE/OUTPATIENT VISIT EST Diagnosis: FLU VACCINE[ICD10: Z23] Jayna JIANG [address] [address] CPT-4: 58782 05/01/2016 OFFICE/OUTPATIENT VISIT EST Diagnosis: Hypothyroidism, unspecified[ICD10: E03.9] Diagnosis: Type 1 diabetes mellitus without complications[ICD10: E10.9] Diagnosis: Mixed hyperlipidemia[ICD10: E78.2] Diagnosis: Essential (primary) hypertension[ICD10: I10] Diagnosis: Mixed incontinence[ICD10: N39.46] Jayna [address] [address] CPT-4: 30619 11/08/2015 ([id number]) OFFICE/OUTPATIENT VISIT EST Diagnosis: Hypothyroidism, unspecified[ICD10: E03.9] Diagnosis: Other fatigue[ICD10: R53.83] Jayna VANESSA [address] [address] CPT-4: 67900 07/19/2015 ([id number]) OFFICE/OUTPATIENT VISIT EST Diagnosis: Hypothyroidism, unspecified[ICD10: E03.9] Diagnosis: Mixed hyperlipidemia[ICD10: E78.2] Diagnosis: Metabolic syndrome[ICD10: E88.81] Diagnosis: Right lower quadrant abdominal tenderness[ICD10: R10.813] Diagnosis: FLU VACCINE[ICD10: Z23] Jayna JIANG [address] [address] CPT-4: 83838 03/28/2015 ([id number]) OFFICE/OUTPATIENT VISIT EST Diagnosis: MALAISE AND FATIGUE[ICD9: 780.79] Diagnosis: DEPRESSIVE DISORDER NEC[ICD9: 311] Diagnosis: HYPOTHYROIDISM[ICD9: 244.9] Diagnosis: PNEUMOCOCCAL VACCINE[ICD10: Z23] Jayna [address] [address] CPT-4: 68312 02/08/2015 ([id number]) OFFICE/OUTPATIENT VISIT EST Diagnosis: MALAISE AND FATIGUE[ICD9: 780.79] Diagnosis: DEPRESSIVE DISORDER NEC[ICD9: 311] Diagnosis: HYPOTHYROIDISM[ICD9: 244.9] Diagnosis: ARTHRALGIA-MULTIPLE SITES[ICD9: 719.49] Jayna Dionicioleydaapolinar COPELANDPILAR Daniel VANESSA DO [facility] [address] [place] [address] CPT-4: 62201 01/11/2015 ([id number]) OFFICE/OUTPATIENT VISIT EST 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] Diagnosis: - I - HYPOTHYROIDISM[ICD9: 244.9] Diagnosis: COUGH[ICD10: R05] Diagnosis: ALLERGIC RHINITIS[ICD9: 477.9] Diagnosis: Lumbar degenerative disc disease[ICD9: 722.52] Jaynaparam GUTIERREZ TracyPaige OTF DO [facility] [address] [place] [address] CPT- 4: 88157 11/24/2014 ([id number]) OFFICE/OUTPATIENT VISIT EST Diagnosis: Allergic reaction[ICD9: 995.3] Galina Leos JAYNA Molina Paige OTF DO [facility] [address] [place] [address] CPT-4: 39923 11/19/2014 ([id number]) OFFICE/OUTPATIENT VISIT EST Diagnosis: ALLERGIC RHINITIS[ICD9: 477.9] Diagnosis: WHEEZING[ICD9: 786.07] Diagnosis: URINARY TRACT INFECTION[ICD9: 599.0] Diagnosis: Right flank pain[ICD9: 789.09] Conchita DownsMellanayeli MORILLOLINE Tracy Paige OTF DO [facility] [address] [place] [address] CPT-4: 29732 10/27/2014 ([id number]) OFFICE/OUTPATIENT VISIT EST Diagnosis: URINARY TRACT INFECTION[ICD9: 599.0] Diagnosis: Flank pain[ICD9: 789.09] Conchita DownsMellanayeli MORILLOLINE Daniel DELVALLE EMMA DO [facility] [address] [place] [address] CPT-4: 31955 09/23/2014 ([id number]) OFFICE/OUTPATIENT VISIT EST Diagnosis: HYPERTENSION[ICD9: 401.9] Diagnosis: - I - HYPOTHYROIDISM[ICD9: 244.9] Diagnosis: HYPERLIPIDEMIA NEC/NOS[ICD9: 272.4] Diagnosis: DYSMETABOLIC SYNDROME X[ICD9: 277.7] Jayna QUEZADA SPaige ORENDER DO [address] [address] CPT-4: 75843 07/28/2014 OFFICE/OUTPATIENT VISIT EST Diagnosis: HYPERTENSION[ICD9: 401.9] Diagnosis: GROSS HEMATURIA[ICD9: 599.71] Jayna Sanchez ORENDER DO [address] [address] CPT-4: 53580 03/30/2014 ([id number]) OFFICE/OUTPATIENT VISIT EST 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 ORENDER DO [address] [address] CPT-4: 50478 06/29/2013 OFFICE/OUTPATIENT VISIT EST Diagnosis: DEPRESSIVE DISORDER NEC[ICD9: 311] Jayna Vanessa GERMAINE ALVARENGA S. ORENDER DO [address] [address] CPT-4: 90378 05/26/2013 ([id number]) OFFICE/OUTPATIENT VISIT EST Diagnosis: BRONCHITIS, ACUTE[ICD9: 466.0] Diagnosis: HYPOTHYROIDISM[ICD9: 244.9] Diagnosis: HYPERLIPIDEMIA NEC/NOS[ICD9: 272.4] Diagnosis: Shoulder pain[ICD9: 719.41] Jayna PUCKETT DO [address] [address] CPT-4: 30667 05/06/2013 ([id number]) OFFICE/OUTPATIENT VISIT EST Diagnosis: BRONCHITIS, ACUTE[ICD9: 466.0] Diagnosis: SINUSITIS, ACUTE[ICD9: 461.9] Jayna VANESSA [address] [address] CPT-4: 23859 04/23/2013 ([id number]) OFFICE/OUTPATIENT VISIT EST Diagnosis: DYSPNEA[ICD9: 786.09] Diagnosis: EDEMA[ICD9: 782.3] Diagnosis: HEDYE-6-DWVQPMTNQIW DEFICIENCY[ICD9: 273.4] Diagnosis: COUGH[ICD9: 786.2] Jayna VANESSA [address] [address] CPT-4: 17485 03/31/20 13 OFFICE/OUTPATIENT VISIT EST Diagnosis: Chest pain[ICD9: 786.50] Diagnosis: ANXIETY STATE NOS[ICD9: 300.00] Conchita VANESSA [address] [address] CPT-4: 86181 03/05/2013 ([id number]) OFFICE/OUTPATIENT VISIT EST Diagnosis: HYPERLIPIDEMIA NEC/NOS[ICD9: 272.4] Diagnosis: HYPOTHYROIDISM[ICD9: 244.9] Diagnosis: Uzwnt-6-uauejwifzgj deficiency[ICD9: 273.4] Diagnosis: ALLERGIC RHINITIS[ICD9: 477.9] Jayna VANESSA [address] [address] CPT-4: 73958 02/04/2013 ([id number]) OFFICE/OUTPATIENT VISIT EST Diagnosis: COUGH[ICD9: 786.2] Diagnosis: ALLERGIC RHINITIS[ICD9: 477.9] Jayna VANESSA [address] [address] CPT-4: 04623 11/27/2012 ([id number]) OFFICE/OUTPATIENT VISIT EST Diagnosis: COUGH[ICD9: 786.2] Diagnosis: DYSPNEA[ICD9: 786.09] Jayna VANESSA [address] [address] CPT-4: 66587 11/11/2012 ([id number]) OFFICE/OUTPATIENT VISIT EST Diagnosis: ABDOMINAL PAIN[ICD9: 789.00] Diagnosis: DIARRHEA[ICD9: 787.91] Diagnosis: COUGH[ICD9: 786.2] Jayna VANESSA DO [address] [address] CPT-4: 48779 10/21/19 13 OFFICE/OUTPATIENT VISIT EST Diagnosis: COUGH[ICD9: 786.2] Diagnosis: SINUSITIS, ACUTE[ICD9: 461.9] Diagnosis: PHARYNGITIS, ACUTE[ICD9: 462] Jayna VANESSA [address] [address] CPT-4: 16346 09/03/2012 OFFICE/OUTPATIENT VISIT EST Diagnosis: ABDOMINAL PAIN[ICD9: 789.00] Diagnosis: Diarrhea[ICD9: 787.91] Jayna VALENZUELA R DO [address] [address] CPT-4: 05557 07/23/2012 ([id number]) OFFICE/OUTPATIENT VISIT EST Diagnosis: DM 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 TYPE II, UNCONTROLLED[ICD9: 250.02] Diagnosis: HYPERLIPIDEMIA NEC/NOS[ICD9: 272.4] Diagnosis: GERD[ICD9: 530.81] Jayna VANESSA [address] [address] CPT-4: 46284 05/20/20 OFFICE/OUTPATIENT VISIT EST Diagnosis: DERMATITIS NOS[ICD9: 692.9] Galina PUCKETT DO [address] [address] CPT-4: 86192 04/04/2012 ([id number]) OFFICE/OUTPATIENT VISIT EST Diagnosis: HYPERLIPIDEMIA NEC/NOS[ICD9: 272.4] Diagnosis: HYPOTHYROIDISM[ICD9: 244.9] Diagnosis: DYSMETABOLIC SYNDROME X[ICD9: 277.7] Jayna VANESSA [address] [address] CPT-4: 09893 01/02/2012 OFFICE/OUTPATIENT VISIT EST Diagnosis: COUGH[ICD9: 786.2] Diagnosis: SINUSITIS, ACUTE[ICD9: 461.9] Lizzie Kelly JAYNA VANESSA [address] [address] CPT-4: 90424 09/04/2011 OFFICE/OUTPATIENT VISIT EST Diagnosis: Diverticulitis[ICD9: 562.11] Diagnosis: THROMBOPHLEBITIS[ICD9: 451.9] Jayna VANESSA [address] [address] CPT-4: 64943 08/14/2011 OFFICE/OUTPATIENT VISIT EST Diagnosis: COUGH[ICD9: 786.2] Jayna VANESSA [address] [address] CPT-4: 25092 07/25/19 OFFICE/OUTPATIENT VISIT EST Diagnosis: HYPOTHYROIDISM[ICD9: 244.9] Diagnosis: HYPERLIPIDEMIA NEC/NOS[ICD9: 272.4] Diagnosis: Total knee replacement status[ICD9: V43.65] Jayna VANESSA [address] [address] CPT- 4: 68853 07/12/2011 OFFICE/OUTPATIENT VISIT EST Diagnosis: BRONCHITIS, ACUTE[ICD9: 466.0] Diagnosis: COUGH[ICD9: 786.2] Jayna GREENBERGNDAPOLINAR [address] [address] CPT-4: 52710 05/09/20 11 OFFICE/OUTPATIENT VISIT EST Diagnosis: BRONCHITIS, ACUTE[ICD9: 466.0] Diagnosis: ASTHMA NOS[ICD9: 493.90] Diagnosis: Pleurisy[ICD9: 511.0] Jayna Sanchez [facility] [address] [place] [address] CPT-4: 39314 05/02/2011 OFFICE/OUTPATIENT VISIT EST Diagnosis: COUGH[ICD9: 786.2] Jayna Sanchez [facility] [address] [place] [address] CPT-4: 02355 04/25/20 11 OFFICE/OUTPATIENT VISIT EST Diagnosis: COUGH[ICD9: 786.2] Diagnosis: SINUSITIS, ACUTE[ICD9: 461.9] Jayna GREENBERGNDER DO [address] [address] CPT-4: 74290 04/04/2011 OFFICE/OUTPATIENT VISIT EST Diagnosis: HYPOTHYROIDISM[ICD9: 244.9] Diagnosis: Knee osteoarthritis[ICD9: 715.96] Jayna Thomas SPaige ORENDER DO [address] [address] CPT-4: 01484 03/01/2011 OFFICE/OUTPATIENT VISIT EST Jayna GREENBERG NDER DO [address] [address] CPT-4: 83465 01/04/2011 ([id number]) OFFICE/OUTPATIENT VISIT EST Jayna PISANO UELINE S. [facility] [address] [place] [address] CPT-4: 54327 12/07/2010 ([id number]) OFFICE/OUTPATIENT VISIT EST Jayna Otf PISANO UELINE S[facility] [address] [place] [address] CPT-4: 59558 10/09/2010 ([id number]) OFFICE/OUTPATIENT VISIT EST Jaynaparam PISANO UELINE S. [facility] [address] [place] [phone] CPT-4: 82111 08/07/2010 ([id number]) OFFICE/OUTPATIENT VISIT, [facility] [address] [place] [address] CPT-4: 68155 06/06/2010 ([id number]) OFFICE/OUTPATIENT VISIT, EULOGIO [facility] [address] [place] [phone] CPT-4: 74921 03/20/2010 ([id number]) OFFICE/OUTPATIENT VISIT, [facility] [address] [place] [phone] CPT-4: 89836 01/30/2010 ([id number]) OFFICE/OUTPATIENT VISIT, [facility] [address] [place] [phone] CPT-4: 15232 01/09/2010 ([id number]) OFFICE/OUTPATIENT VISIT, [facility] [address] [place] [phone] CPT-4: 02917 10/26/2009 ([id number]) OFFICE/OUTPATIENT VISIT, EULOGIO [facility]Z [facility] [address] [place] [phone] CPT-4: 88770 10/18/19 10 ([id number]) OFFICE/OUTPATIENT VISIT, [facility] [address] [place] [phone] CPT-4: 16478 10/04/2009 ([id number]) OFFICE/OUTPATIENT VISIT, [facility] [address] [place] [phone] CPT-4: 64507 09/21/2009 Plan of Care Planned Activity Notes [...] 06/29/2022 Appointment: Marlene Staples WPtel: [phone] [id number] ACUTE ILLNESS 06/29/2022 Patient Education: ciprofloxacin HCl- [employer] Coupon [id number] Completed 06/29/2022 Visit Diagnosis Plan: Depression Discussion: Increase Wellbutrin XL to 300mg po qAM Fwup 2 mos ICD-9 : 311 ICD-10 : F32.A 05/28/2022 Visit Diagnosis Plan: Hypothyroidism Discussion: Labs discussed Decrease levothyroxine to 150mcg 6 days a week and repeat thyroid lab in 2mos ICD-9 : 244.9 ICD-10 : E03.9 05/28/2022 Appointment: [facility] [phone] [id number] FOLLOW UP 05/28/2022 Visit Diagnosis Plan: Hypothyroidism [...] : R73.9 05/10/2022 Appointment: Jayna Vanessa WPtel: [address] [place], [place] [phone] [place] FOLLOW UP 05/10/2022 Visit Diagnosis Plan: Migraine, intractable Discussion : Toradol 30mg IM x1 given in clinic. Start Rizatriptan-- discussed on how to use and may repeat x1 dose 2 hours later. Restart propranolol for migraine prevention. Notify clinic if migraine not improving. ICD-9 : 346.91 ICD-10 : G43.919 04/18/2022 Appointment: Marlene Staples WPtel: [address] [phone] ACUTE ILLNESS 04/18/2022 Patient Education: propranolol- OptimizeRX Coupon [id number] Completed 04/18/2022 Appointment: Jayna Vanessa WPtel: [address] [place], [place] [phone] US INJECTION 04/05/2022 Appointment: Jayna Vanessa WPtel: [address] [place], [place] [phone] US CANCELED 03/21/2022 Visit Diagnosis Plan: Acute [...] : J30.9 02/15/2022 Appointment: Jayna Vanessa WPtel: [address] [place], [place] [phone] US ACUTE ILLNESS 02/15/2022 Patient Education: prednisone- OptimizeRX Coupon [id number] https://www.[employer]/samplemd/resources/getResource/61/43n63it2-b318-8e02-ae Completed 02/15/2022 Visit Diagnosis Plan: Hypothyroidism, unspecified Disc ussion: Stable ICD-9 : 244.9 ICD-10 : E03.9 02/06/2022 Visit Diagnosis Plan: Encounter for [facility] adult medical examination without abnormal [...] J44.9 02/06/2022 Appointment: Jayna Vanessa WPtel: [phone] [phone] Annual Well Visit 02/06/2022 Care Plan: Annual depression screening, 15 minutes 02/06/2022 Visit Diagnosis Plan: 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 Patient declines- will get stat CT of the head, cbc, cmp, and ESR and fwup with results [facility] sample given ICD-9 : 346.03 ICD-10 : G43.111 02/01/2022 Appointment: Latasha [facility]and [facility]el[facility] [phone] [facility] [facility] 02/01/2022 Patient Education: Patient Medication [...] R19.7 11/29/2021 Appointment: Jayna Vanessa WPtel: [phone] [place] [phone] FOLLOW UP 11/29/2021 Visit Diagnosis Plan: Diarrhea Discussion: C Diff nega tive Treat with diflucan and Restora-RX Fwup 1 week ICD-9 : 787.91 ICD-10 : R19.7 11/22/2021 Visit Diagnosis Plan: Post-viral cough syndrome Discus joaquín: Change albuterol to Breztri 2p BID Add singulair 10mg po q HS ICD-9 : 786.2 ICD-10 : R05.8 11/22/2021 Appointment: Jayna Vanessa WPtel: [phone] ACUTE ILLNESS 11/22/2021 Patient Education: Singulair- OptimizeRX Coupon [phone] [id number] https://www.[employer]/samplemd/resources/getResource/61/2d48ehp3-3xgz-1841-4j Completed 11/22/2021 Visit Diagnosis Plan: Diarrhea of presumed infectious origin Discussion: Will check for c-diff due to recent antibiotics and foul smelling diarrhea ICD-9 : 009.3 ICD-10 : R19.7 11/21/2021 Visit Diagnosis Plan: History of recent pneumonia Disc ussion: Check cbc, cmp, ESR, and cxr now ICD-9 : V12.61 ICD-10 : Z87.01 11/21/2021 Appointment: Latasha Anand WPtel: [phone] ACUTE ILLNESS 11/21/2021 Patient Education: Patient Medication Summary Completed 11/21/2021 Visit Diagnosis Plan: Pneumonia Discussion: Finish all abx and continue albuterol Fwup next week ICD-9 : 486 ICD-10 : J18.9 11/09/2021 Visit Diagnosis Plan: Serous otitis media Discussion: Kenalog 40mg with Dexamethasone 2mg IM now ICD-9 : 381.4 ICD-10 : H65.90 11/09/2021 Appointment: Jayna Vanessa WPtel: [address] [place], [place] [phone] Hospital Follow Up 11/09/2021 Visit Diagnosis Plan: Pneumonia Discussion: Admit to h ospital ICD-9 : 486 ICD-10 : J18.9 10/31/2021 Appointment: Jayna Vanessa WPtel: [address] [place], [place] [phone] FOLLOW UP 10/31/2021 Visit Diagnosis Plan: Nausea [...] e prn 10/30/2021 Appointment: Jayna Vanessa WPtel: [address] [place], [place] [phone] ACUTE ILLNESS 10/30/2021 Visit Diagnosis Plan: Cervicalgia Discussion: Had x-ra ys done Kenalog 40mg IM now Baclofen prn Mobic for 1 week Topical muscle rube Moist heat and stretches shown Has PT sessions scheduled next week so will add in therapy for neck ICD-9 : 723.1 ICD-10 : M54.2 09/05/2021 Appointment: Jayna Vanessa WPtel: [address] [place], [place] [phone] ACUTE ILLNESS 09/05/2021 Visit Diagnosis Plan: 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 Currently taking hydroxycholoroquine. Discussed that intraarticular injection of rt 4th PIP would likely be most beneficial- states she has not seen rheum in awhile, but will see about following up if not improving with prednisone. ICD-9 : 716.94 ICD-10 : M19.041 08/24/2021 Appointment: Latasha Anand WPtel: [phone] [phone] ACUTE ILLNESS 08/24/2021 Patient Education: Patient Medication Summary Completed 08/24/2021 Patient Education: prednisone- OptimizeRX Coupon [id number] Completed 08/24/2021 Visit Plan: Supportive care. Rest, [...] 07/04/2021 Appointment: Latasha Anand WPtel: [phone] [phone] US ACUTE ILLNESS 07/04/2021 Patient Education: Patient Medication Summary Completed 07/04/2021 Patient Education: Patient Medication Summary Completed 07/04/2021 Appointment: Latasha Anand WPtel: [phone] [phone] US NO SHOW 07/03/2021 Appointment: Latasha Anand WPtel: [phone] [phone] US patients issue resolved so moved to 's schedule for his hospital fwup (km) CANCELED 03/29/2021 Appointment: Jayna Vanessa WPtel: [phone] [phone] US INJECTION 03/29/2021 Visit Diagnosis Plan: Vasovagal episode Discussion: Mo nitored in office. Stable, feeling better- sent to [facility] for 1L NS IV, cbc, and cmp. ICD-9 : 780.2 ICD-10 : R55 03/01/2021 Patient Education: Patient Medication Summary Completed 03/01/2021 Visit Diagnosis Plan: Sebaceous cyst of right axilla D iscussion: Pustule/cyst drained- see note. F/U for concerns. ICD-9 : 706.2 ICD-10 : L72.3 02/08/2021 Appointment: Latasha Anand WPtel: [phone] [phone] ACUTE ILLNESS 02/08/2021 Patient Education: Patient Medication Summary Completed 02/08/2021 Visit Diagnosis Plan: Contact dermatitis Discussion: T opical TAC and prednisone Notify if persists or worsens ICD-9 : 692.9 ICD-10 : L25.9 01/19/2021 Appointment: Jayna Vanessa WPtel: [phone] [phone] ACUTE ILLNESS 01/19/2021 Patient Education: prednisone- OptimizeRX Coupon [id number] Completed 01/19/2021 Patient Education: triamcinolone acetonide- OptimizeRX Coupon [id number] Completed 01/19/2021 Visit Diagnosis Plan: Hypothyroidism, unspecified Disc ussion: Increase levothyroxine to 150mcg po daily and recheck TSH and free T4 in 2mos ICD-9 : 244.9 ICD-10 : E03.9 01/03/2021 Visit Diagnosis Plan: Essential (primary) hypertension Discussion: Stable ICD-9 : 401.9 ICD-10 : I10 01/03/2021 Visit Diagnosis Plan: Encounter for [facility] adult medical examination without abnormal findings Discussion: Mediterranean diet Combinati on of cardio and weight bearing exercise Had Covid vaccines Lab discussed ICD-9 : V70.9 ICD-10 : Z00.00 01/03/2021 Visit Diagnosis Plan: Chronic obstructive pulmonary di sease, unspecified Discussion: Following with pulmonology ICD-9 : 496 ICD-10 : J44.9 01/03/2021 Appointment: Jayna Vanessa WPtel: [phone] [place] [phone] Annual Well Visit 01/03/2021 Patient Education: levothyroxine- OptimizeRX Coupon [id number] https://www.[employer]/samplemd/resources/getResource/61/3e163rs5-0df3-8274-r0 Completed 01/03/2021 Visit Diagnosis Plan: COPD exacerbation Discussion: Sa ivon of keith given. Prednisone 40 mg x 5 days for exacerbation- increased cough, shortness of breath, and phlegm. Promethazine DM cough syrup sent d/t frequent hacking cough that interrupts sleep. F/U for no improvement or any concerns. ICD-9 : 491.21 ICD-10 : J44.1 11/29/2020 Appointment: Latasha Anand WPtel: [phone] [place] [phone] ACUTE ILLNESS 11/29/2020 Patient Education: Patient Medication Summary Completed 11/29/2020 Patient Education: prednisone- OptimizeRX Coupon [id number] Completed 11/29/2020 Patient Education: promethazine-DM- OptimizeRX Coupon [id number] Completed 11/29/2020 Visit Diagnosis Plan: Sinusitis Discussion: Will start doxycycline (pcn allergy). Sinus rinses. Tylenol/nsaids for headache/pain. Return to clinicif not improving/concerns. ICD-9 : 473.9 ICD-10 : J32.9 09/29/2020 Appointment: Latasha Anand WPtel: [phone] [phone] ACUTE ILLNESS 09/29/2020 Patient Education: Patient Medication Summary Completed 09/29/2020 Patient Education: doxycycline hyclate- OptimizeRX Coupon [id number] Completed 09/29/2020 Visit Diagnosis Plan: Other [...] J42 09/19/2020 Appointment: Latasha Anand WPtel: [phone] [phone] ACUTE ILLNESS 09/19/2020 Patient Education: Patient Medication Summary Completed 09/19/2020 Patient Education: ProAir HFA- OptimizeRX Coupon [id number] Completed 09/19/2020 Visit Diagnosis Plan: Right-sided tinnitus [...] H93.11 08/10/2020 Appointment: Jayna Vanessa WPtel: [phone] [phone] FOLLOW UP 08/10/2020 Patient Education: neomycin-polymyxin B-dexameth- Opti mizeRX Coupon [id number] https://www.[employer]/samplemd/resources/getResource/61/ux041r16-v03r-8d47-mn Completed 08/10/2020 Visit Diagnosis Plan: Dysfunction of right eustachian tube Discussion: Alma.nv video visit done Increase zyrtec to BID Increase flonase to BID Add prednisone To office at end of week to assess otoscope exam if persists ICD-9 : 381.81 ICD-10 : H69.81 08/01/2020 Appointment: Jayna Vanessa WPtel: [phone] [place] [phone] TELEMEDICINE 08/01/2020 Patient Education: prednisone- OptimizeRX Coupon [phone] https://www.[employer]/sampleTake Me Home Taxi/resources/getResource/61/yg0u03t9-7282-0x8p-57 Completed 08/01/2020 Visit Diagnosis Plan: Pyelonephritis Discussion: Hilary daniel all abx Push fluids Check lab and repeat UA in 5 days--CBC, CMP, ESR ICD-9 : 590.80 ICD-10 : N12 07/13/2020 Appointment: Jayna Vanessa WPtel: [phone] [place] [phone] Hospital Follow Up 07/13/2020 Visit Diagnosis Plan: Acute gastroenteritis Discussion : Telephone visit completed Clear liquid diet next 24-48hrs Flagyl to cover for colitis/diverticulitis Zofran prn Notify or to ER if worsening ICD-9 : 558.9 ICD-10 : K52.9 07/05/2020 Appointment: Jayna Vanessa WPtel: [phone] [phone] TELEMEDICINE 07/05/2020 Patient Education: ondansetron HCl- OptimizeRX Coupon [id number] https://www.[employer]/samplemd/resources/getResource/61/c3a86wf0-7d2x-170s-3a Completed 07/05/2020 Visit Diagnosis Plan: Metabolic syndrome Discussion: U pdate CMP, HBa1c ICD-9 : 277.7 ICD-10 : E88.81 06/22/2020 Visit Diagnosis Plan: Hmzge-1-hribwqeucne deficiency D iscussion: Following with pulmonology ICD-9 [...] : I10 06/22/2020 Appointment: Jayna Vanessa WPtel: [address] [place], [place] [phone] FOLLOW UP 06/22/2020 Visit Diagnosis Plan: Urinary tract infection Discussi on: Macrobid Diflucan Push water Notify if worsens ICD-9 : 599.0 ICD-10 : N39.0 05/17/2020 Appointment: Jayna Vanessa WPtel: [address] [place], [place] [phone] ACUTE ILLNESS 05/17/2020 Patient Education: fluconazole- OptimizeRX Coupon [phone] https://www.[employer]/Monogrammd/resources/getResource/61/5t2nc3uo-v1e4-0u4l-5k Completed 05/17/2020 Visit Diagnosis Plan: Right pulmonary embolus Discussi on: Continue eliquis at 5mg po BID Has appointments pending with pulmonology and hematology Fwup after visits with both of these specialists ICD-9 : 415.19 ICD-10 : I26.99 03/14/2020 Appointment: Jayna Vanessa WPtel: [address] [place], [place] [phone] [facility] 03/14/20 on cell -- home phone had busy signal Hospital Follow Up 03/14/2020 Appointment: Jayna Vanessa WPtel: [address] [place], [place] [phone] I schedule patient by mistake ddo Scheduled [...] R06.00 03/07/2020 Appointment: Jayna Vanessa WPtel: [phone] [phone] ACUTE ILLNESS 03/07/2020 Care Plan: CT THORAX W/DYE LOINC : 78407 -6 Pending 03/07/2020 Appointment: Jayna Vanessa WPtel: [phone] [phone] NO SHOW - FORGIVEN 03/02/2020 Visit Diagnosis Plan: Upper respiratory infection Disc ussion: patient's covid test was neg from several weeks ago. proair refilled to take as needed. medrol pack prescribed to cover for allergies since her symptoms began after being in [facility]. however, instructed patient that she needs to be checked again for coronavirus due to severity of her symptoms. patient lives near [place] so informed her to go to [facility] in for testing. call ofice with new or worsening symptoms, otherwise push fluids. ICD-9 : 465.9 ICD-10 : J06.9 02/11/2020 Appointment: Genesis Fernández [address] [place] [address] TELEMEDICINE 02/11/2020 Patient Education: ProAir HFA- OptimizeRX Coupon [id number] Completed 02/11/2020 Patient Education: Medrol (Isaiah)- OptimizeRX Coupon [id number] Completed 02/11/2020 Visit Diagnosis Plan: Hypothyroidism, unspecified [...] I10 12/21/2019 Visit Diagnosis Plan: Encounter for [facility] adult medical examination without abnormal findings Discussion: Mediterranean diet Combinati on of cardio and weight bearing exercise Lab discussed Last colonoscopy 3 years ago ICD-9 : V70.9 ICD-10 : Z00.00 12/21/2019 Appointment: Jayna Vanessatel: [phone] [phone] Annual Well Visit 12/21/2019 Care Plan: Referral Order SNOMED-CT : 30 [id number] Pending 12/21/2019 Visit Diagnosis Plan: Dermatitis Discussion: Doxy.me v ideo visit done Cover with Prednisone taper Use Zyrtec 10mg po q AM BID ICD-9 : 692.9 ICD-10 : L30.9 09/29/2019 Appointment: Jayna Vanessa WPtel: [phone] [phone] TELEMEDICINE 09/29/2019 Patient Education: prednisone- OptimizeRX Coupon [phone] https://www.[employer].com/samplemd/resources/getResource/61/00x29w70-3j20-9v01-3p Completed 09/29/2019 Visit Diagnosis Plan: Bone spur [...] N39.0 09/14/2019 Appointment: Jayna Vanessa WPtel: [phone] [phone] TELEMEDICINE 09/14/2019 Appointment: Jayna Vanessa WPtel: [phone] [phone] US LAB 09/11/2019 Appointment: Jayna Vanessa WPtel: [address] [place], [place] [phone] US 09/09/2019 1210--per Ally patient was to only have 1 injection, reculture urine on 09/11/19 (km) CANCELED 09/09/2019 Appointment: Jayna Vanessa WPtel: [phone] [phone] US INJECTION 09/08/2019 Appointment: Jayna Vanessa WPtel: [phone] [phone] US INJECTION 09/07/2019 Visit Diagnosis [...] ICD-10 : R35.0 09/02/2019 Appointment: Genesis Fernández [address] [place] [address] ACUTE ILLNESS 09/02/2019 Visit Diagnosis Plan: Sinusitis Discussion: instructed to start flonase daily and zyrtec daily. if no improvement next week, call clinic and may need further directions. instructed to use saline eye drops as needed to eyes to assist with dryness. ICD-9 : 473.9 ICD-10 : J32.9 07/09/2019 Appointment: Genesis Fernández [address] [place] [address] ACUTE ILLNESS 07/09/2019 Visit Diagnosis Plan: UTI (urinary tract infection) Di scussion: urine culture sent off. will start on macrobid due to symptoms. instructed to push fluids and chemo tomorrow with worsening symptoms. ICD-9 : 599.0 ICD-10 : N39.0 04/15/2019 Appointment: Jay[facility] Van[facility] WPtel: [phone] [phone] [facility] INJECTION 04/15/2019 Appointment: Genesis Fernández [address] [place], [place] [phone] ACUTE ILLNESS 04/15/2019 Visit Diagnosis Plan: Pain in right leg Discussion: ke nalog/dexa given in office. continue with flexeril prn. PT was ordered for patient due to chronic issues. call office with worsening symptoms and may need imaging. ICD-9 : 729.5 ICD-10 : M79.604 04/07/2019 Appointment: [facility] [facility] 04/07/2019 Visit Diagnosis Plan: Diverticulitis of large intestine without perforation or abscess without bleeding Discussion: Patient will call when she g ets home and verify which antibiotics she has left--needs at least another week on flagyl and thinks she only took 1 week on that ICD-9 : 562.11 ICD-10 : K57.32 03/25/2019 Appointment: Jayna Vanessa WPtel: [phone] [phone] FOLLOW UP 03/25/2019 Visit Diagnosis Plan: Cystitis Discussion: Bactrim and culture urine ICD-9 : 595.9 ICD-10 : N30.90 03/18/2019 Visit Diagnosis Plan: Abdominal pain Discussion: Cover with flagyl for colitis [place] diet To ER this weekend if worsening Fwup 1 week ICD-9 : 789.00 ICD-10 : R10.9 03/18/2019 Appointment: Jayna Vanessa WPtel: [phone] [phone] ACUTE ILLNESS 03/18/2019 Visit Diagnosis Plan: Urinary [...] ICD-10 : R10.84 01/26/2019 Appointment: Genesis Fernández [address] [place] [address] ACUTE ILLNESS 01/26/2019 Appointment: Jayna Vanessa WPtel: [facility] [place] [phone] CANCELED 01/12/2019 Visit Diagnosis Plan: Mild intermittent asthma with (a cute) exacerbation Discussion: Kenalog 40mg IM now Prednisone stating tomorrow Start Doxycycline tonight Continue SVNs with duoneb q4hrs To ER this weekend if worsening Call Saturday on how doing ICD-9 : 466.0 ICD-10 : J45.21 01/08/2019 Appointment: Jayna Vanessa WPtel: [facility] [place] [phone] FOLLOW UP 01/08/2019 Patient Education: prednisone- OptimizeRX Coupon [phone] https://www.[employer]/samplemd/resources/getResource/61/08873841-f2qv-2915-62 Completed 01/08/2019 Visit Diagnosis Plan: Mild intermittent asthma with (a cute) exacerbation Discussion: Solumedrol 125mg IM SVN with duoneb given Continue albuterol q4hrs CXR now Recheck tomorrow ICD-9 : 466.0 ICD-10 : J45.21 01/06/2019 Appointment: Jayna Vanessa WPtel: [facility] [place] [phone] ACUTE ILLNESS 01/06/2019 Visit Diagnosis Plan: Encounter for screening for roel gnant neoplasm of colon Discussion: positive for ob. will order ct abd/pelvis due to other findings and discussed with patient that may need to proceed with updated colonoscopy. patient verbalized understanding. ICD-9 : V76.51 ICD-10 : Z12.11 12/11/2018 Visit Diagnosis Plan: Encounter for [facility] adult medical examination with abnormal findings [...] ICD-10 : N76.0 12/11/2018 Appointment: Genesis Fernández [address] [place], [place] [id number] Annual Well Visit 12/11/2018 Care Plan: RML ASSAY THYROID STIM HORMONE Pending 12/04/2018 Care Plan: RML ASSAY OF FREE THYROXINE Pe nding 12/04/2018 Care Plan: RML A1C HPLC LOINC : 44966-0 Pending 12/04/2018 Care Plan: RML LIPID PANEL LOINC : 16900 -1 Pending 12/04/2018 Care Plan: RML COMPREHEN METABOLIC PANEL LOINC : 28750-9 Pending 12/04/2018 Care Plan: QUEST CBC (INCLUDES DIFF/PLT) LOINC : 53484-7 Pending 12/04/2018 Visit Diagnosis Plan: Benign paroxysmal vertigo, bilat eral Discussion: Meclizine Vestibular Exercises To ER if worsens or develops neurological symptoms or will need CT scan if persists/worsens ICD-9 : 386.11 ICD-10 : H81.13 10/30/2018 Appointment: Jayna Vanessa WPtel: [phone] [phone] ACUTE ILLNESS 10/30/2018 Patient Education: VESTIBULAR EXCERCISES Completed 10/30/2018 Patient Education: meclizine- OptimizeRX Coupon [id number] Completed 10/30/2018 Appointment: Jayna Vanessa WPtel: [phone] [phone] US canceled due to mark going [...] ICD-10 : R05 10/07/2018 Appointment: Stacey Feng [address] [place], [place] [phone] ACUTE ILLNESS 10/07/2018 Patient Education: doxycycline hyclate- OptimizeRX [facility] [id number] https://www.[employer].com/samplemd/resources/getResource/61/n166pjy4-k819-486a-37 Completed 10/07/2018 Care Plan: RML ASSAY OF [...] M85.80 06/23/2018 Appointment: Jayna Vanessa WPtel: [phone] [phone] US FOLLOW UP 06/23/2018 Appointment: Jayna Vanessa WPtel: [phone] ER Follow UP 01/27/2018 Visit Diagnosis Plan: Hypothyroidism, unspecified Disc ussion: Lab discussed Increase Levothyroxine to 175mcg daily then recheck level in 6 weeks Follow Up: 6 weeks ICD-9 : 244.9 ICD-10 : E03.9 01/16/2018 Visit Diagnosis Plan: Mixed hyperlipidemia Discussion: Defers statin meds ICD-9 : 272.4 ICD-10 : E78.2 01/16/2018 Appointment: Jayna Vanessa WPtel: [address] [place], [place] [phone] FOLLOW UP 01/16/2018 Patient Education: Patient Medication Summary Completed 01/16/2018 Patient Education: Patient Medication Summary Completed 01/15/2018 Care Plan: RML COMPREHEN METABOLIC PANEL LOINC : 44056-1 Pending 01/15/2018 Care Plan: RML ASSAY THYROID STIM HORMONE Pending 01/15/2018 Care Plan: RML ASSAY OF FREE THYROXINE Pe nding 01/15/2018 Care Plan: RML LIPID PANEL LOINC : 75844 -1 Pending 01/15/2018 Care Plan: CBC Pending 01/15/2018 Care Plan: RML A1C HPLC LOINC : 30745-9 Pending 01/15/2018 Appointment: Jayna Vanessa WPtel: [address] [place] [phone] US CANCELED 12/26/2017 Appointment: Jayna Vanessa WPtel: [address] [place], [place] [phone] US CANCELED 10/28/2017 Visit Diagnosis Plan: Cervicalgia Discussion: xray ord ered of cervical spine and right shoulder. 40 mg kenalog/15 mg toradol prescribed to assist with pain. medrol dose pack prescribed to start tomorrow. instructed patient that if she d evelops worsening pain or no improvement, call or rtc. ICD-9 : 723.1 ICD-10 : M54.2 10/16/2017 Appointment: Genesis Fernández [address] [place], [place] [phone] ACUTE ILLNESS 10/16/2017 Patient Education: Patient Medication Summary Completed 10/16/2017 Care Plan: X-RAY EXAM NECK SPINE 4/5VWS cervical LOINC : 04077-8 Pending 10/16/2017 Visit Diagnosis Plan: Headache Discussion: Stat CT of head Dilated eye exam ICD-9 : 784.0 ICD-10 : R51 09/12/2017 Visit Diagnosis Plan: Dizziness and giddiness Discussi on: Check CBC,TSH, Free T4 now ICD-9 : 780.4 ICD-10 : R42 09/12/2017 Appointment: Jayna Vanessa WPtel: [phone] [phone] ACUTE ILLNESS 09/12/2017 Patient Education: Patient Medication Summary Completed 09/12/2017 Care Plan: CT HEAD/BRAIN W/O DYE LOINC : 45887-5 Pending 09/12/2017 Visit Diagnosis Plan: Cough Discussion: discussed cxra y and sputum results with patient and how they are negative for bacteria. patient restarted on her PPI to cover possiblity of GERD causing cough. instructed patient to contact her lead software development engineer in [place] for them to evaluate. rtc with any new or worsening symptoms but continue with inhaler and nebulizer treatments as needed. ICD-9 : 786.2 ICD-10 : R05 08/20/2017 Appointment: Genesis Fernández [address] [place], [place] [phone] FOLLOW UP 08/20/2017 Patient Education: Patient Medication Summary Completed 08/20/2017 Visit Diagnosis Plan: COUGH Discussion: Check stat CXR Check Sputum culture ICD-9 : 786.2 ICD-10 : R05 08/13/2017 Appointment: Jayna Vanessa WPtel: [phone] [phone] ACUTE ILLNESS 08/13/2017 Patient Education: [...] Rest, Fluids... 07/29/2017 Appointment: Jayna Vanessa WPtel: [address] [place], [place] [phone] ACUTE ILLNESS 07/29/2017 Patient Education: Patient Medication [...] ICD-10 : J09.X2 07/25/2017 Appointment: Genesis Fernández [address] [place] [address] ACUTE ILLNESS 07/25/2017 Patient Education: Patient Medication [...] : M25.50 06/10/2017 Appointment: Jayna Vanessa WPtel: [address] [place], [place] [phone] ACUTE ILLNESS 06/10/2017 Patient Education: Patient Medication Summary Completed 06/10/2017 Appointment: Jayna Vanessa WPtel: [address] [place], [place] [phone] US Does not need appointment CANCELED 2016 Appointment: Jayna Vanessa WPtel: [address] [place], [place] [phone] US CANCELED 05/30/2017 Visit Diagnosis Plan: Acute bronchitis, unspecified Di scussion: prednisone, zpack and tessalon perles prescribed to assist with symptoms. call or RTC if no improvement. humidifier at night. hydrate well and rest. discussed side effects from prednisone including increased blood sugars and instructed to monitor. ICD-9 : 490 ICD-10 : J20.9 05/28/2017 Appointment: Genesis Fernández 504 [facility] ACUTE ILLNESS 05/28/2017 Patient Education: Patient Medication Summary Completed 05/28/2017 Visit Diagnosis Plan: Type 2 diabetes mellitus without complications Discussion: Continue current meds accuchecks daily ICD-9 : 250.00 ICD-10 : E11.9 04/04/2017 Visit Diagnosis Plan: Encounter for [facility] adult medical examination without abnormal findings Discussion: Flu and Pneumovax given Mamm ogram ordered Lab discussed ICD-9 : V70.9 ICD-10 : Z00.00 04/04/2017 Appointment: Jayna Vanessa WPtel: [phone] [phone] Annual Well Visit 04/04/2017 Patient Education: Patient Medication Summary Completed 04/04/2017 Care Plan: MAMMOGRAM SCREENING LOINC : 2 6347-5 Pending 04/04/2017 Patient Education: Patient Medication Summary Completed 03/21/2017 Care Plan: RML COMPREHEN METABOLIC PANEL LOINC : 28948-5 Pending 03/21/2017 Care Plan: RML ASSAY THYROID STIM HORMONE Pending 03/21/2017 Care Plan: RML ASSAY OF FREE THYROXINE Pe nding 03/21/2017 Care Plan: CBC Pending 03/21/2017 Care Plan: RML A1C HPLC LOINC : 05802-1 Pending 03/21/2017 Visit Diagnosis Plan: Mixed hyperlipidemia Discussion: Continue current meds Follow Up: 6 months ICD-9 : 272.4 ICD-10 : E78.2 11/28/2016 Visit Diagnosis Plan: Hypothyroidism, unspecified Disc ussion: Continue current dose ICD-9 : 244.9 ICD-10 : E03.9 11/28/2016 Visit Diagnosis Plan: Igzml-9-ijnlrqgetew deficiency D iscussion: Continue weekly injections ICD-9 : 273.4 ICD-10 : E88.01 11/28/2016 Visit Diagnosis Plan: Sebaceous cyst Discussion: Emily daniel eal Discussed removal ICD-9 : 706.2 ICD-10 : L72.3 11/28/2016 Appointment: Jayna Vanessa WPtel: [phone] [phone] 6/6 rang and rang on home phone and mobile confirmed~sl FOLLOW UP 11/28/2016 Patient Education: Patient Medication Summary Completed 11/28/2016 Patient Education: Patient Medication Summary Completed 11/20/2016 Referral: Tom Mcrae WPtel: 100 [facility] 440 [id number] US Referral Initiated 07/05/2016 Visit Plan: Start with CT abdomen/pelvis Will need EGD and Colonoscopy so will refer to Dr. Pina Obtain most recent lab results 06/05/2016 Appointment: Jayna Vanessa WPtel: [phone] [phone] ACUTE ILLNESS 06/05/2016 Patient Education: Patient Medication Summary Completed 06/05/2016 Care Plan: CT PELVIS W/O DYE LOINC : 361 08-9 Pending 06/05/2016 Care Plan: CT ABDOMEN W/O DYE LOINC : 36 103-0 Pending 06/05/2016 Care Plan: Referral Order SNOMED-CT : [phone] Pending 06/05/2016 Appointment: [facility]el[phone] [facility] INJECTION 05/01/2016 Patient Education: Patient Medication Summary Completed 05/01/2016 Patient Education: Patient Medication Summary Completed 04/26/2016 Care Plan: RML COMPREHEN METABOLIC PANEL LOINC : 75850-8 Pending 04/26/2016 Care Plan: RML ASSAY THYROID STIM HORMONE Pending 04/26/2016 Care Plan: RML ASSAY OF FREE THYROXINE Pe nding 04/26/2016 Care Plan: RML A1C HPLC LOINC : 53317-7 Pending 04/26/2016 Referral: Aditya Stone WPtel: [address] [facility] [address] [id number] Arrival time is 10:00 Am~sl Appointment Confirme d 11/25/2015 Visit Plan: Had fasting lab done this AM Continue PT for right shoulder Continue current meds Referral to Dr. Temo Stone for incontinence 11/08/2015 Appointment: Jayna Vanessa WPtel: [phone] 11/06 confirmed-sp FOLLOW UP 11/08/2015 Patient Education: Patient Medication Summary Completed 11/08/2015 Appointment: Jayna Vanessa WPtel: [address] [place], [place] [phone] 10/19 rescheduled ~sl RESCHEDULED 10/24/2015 Appointment: Jayna Vanessa WPtel: [address] [place], [place] [phone] US 10/10rang and rang ~sl RESCHEDULED 6 Patient Education: Patient Medication Summary Completed 10/12/2015 Care Plan: RML COMPREHEN METABOLIC PANEL LOINC : 13044-8 Pending 10/12/2015 Care Plan: RML ASSAY THYROID STIM HORMONE Pending 10/12/2015 Care Plan: RML ASSAY OF FREE THYROXINE Pe nding 10/12/2015 Care Plan: RML LIPID PANEL LOINC : 61527 -1 Pending 10/12/2015 Care Plan: CBC Pending 10/12/2015 Care Plan: RML A1C HPLC LOINC : 29666-9 Pending 10/12/2015 Care Plan: VITAMIN D TOTAL (25 HYDROXY) P ending 10/12/2015 Appointment: Jayna Vanessa WPtel: [address] [place], [place] [phone] US CANCELED 09/22/2015 Visit Plan: Lab discussed Change thyroid med back to brand synthroid and recheck thyroid lab in 3mos 07/19/2015 Appointment: Jayna Vanessa WPtel: [facility]8 [phone] 07/18/15 appt confirmed cn FOLLOW UP 07/19 Patient Education: Patient Medication Summary Completed 07/19/2015 Patient Education: Patient Medication Summary Completed 07/12/2015 Visit Plan: Lab discussed Change synthro id to 150mcg all days but M, W, F will change to 175mcg Check Lab and fwup in 3mos Flu shot given 03/28/2015 Appointment: Jayna Vanessa WPtel: [address] [place], [place] [phone] 03/25 rang for 1:40 seconds 03/28/ appt confirmed cn FOLLOW UP 03/28/2015 Patient Education: Patient Medication Summary Completed 03/28/2015 Patient Education: Patient Medication Summary Completed 03/21/2015 Visit Plan: Continuue fluoxetine at high er dose Increase synthroid to 150mcg as ordered Decrease propranolol to 20mg po BID Check thyroid lab and fwup in 2mos Prevnar 13 given 02/08/2015 Appointment: Jayna Vanessa WPtel: [address] [place], [place] [phone] FOLLOW UP 02/08/2015 Patient Education: Patient Medication Summary Completed 02/08/2015 Visit Plan: Check CBC, CMP, TSH, Free T4 , uric acid, lactate now Increase fluoxetine to 40mg daily Recheck in 1month Notify if worsening Culture urine 01/11/2015 Appointment: Jayna Vanessa WPtel: [address] [place], [place] [phone] ACUTE ILLNESS 01/11/2015 Patient Education: Patient Medication Summary Completed 01/11/2015 Visit Plan: Lab discussed Accuchecks lucian ly Medrol dose pack Rx for back brace 11/24/2014 Appointment: Jayna Vanessa WPtel: [address] [place], [place] [phone] 11/23 confirmed -mf FOLLOW UP 11/24/2014 Patient Education: Patient Medication Summary Completed 11/24/2014 Appointment: Galina Leos WPtel: [address] [place], [place] [phone] ER Follow UP 11/19/2014 Patient Education: Patient Medication Summary Completed 11/19/2014 Appointment: Conchita Capone WPtel: [address] [place] [address] ACUTE ILLNESS 10/27/2014 Patient Education: Patient Medication Summary Completed 10/27/2014 Patient Education: [facility] - Saving AutoInj - 18+ - Dynamic Portal ID Completed 10/27/2014 Appointment: Conchita Capone WPtel: [address] [place], [place] [phone] ACUTE ILLNESS 09/23/2014 Patient Education: Patient Medication Summary Completed 09/23/2014 Visit Plan: Lab discussed Continue curre nt meds 07/28/2014 Appointment: Jayna Vanessa WPtel: [address] [place], [place] [phone] 07/27 FOLLOW UP 07/28/2014 Patient Education: Patient Medication Summary Completed 07/28/2014 Patient Education: Patient Medication Summary Completed 07/21/2014 Patient Education: Patient Medication Summary Completed 04/27/2014 Appointment: Jayna Vanessa WPtel: [address] [place], [place] [phone] 03/29 FOLLOW UP 03/30/2014 Patient Education: Patient Medication Summary Completed 03/30/2014 Patient Education: [facility] - Saving AutoInj - 18+ - Dynamic Portal ID Completed 03/30/2014 Visit Plan: Lab discussed DC Vytorin Tri al of Lipitor 80mg q HS Continue Trilipix Check Lipids/CMP/thyroid and HbA1C in 4mos then fwup 11/24/2013 Appointment: Jayna Vanessa WPtel: [address] [place], [place] [phone] FOLLOW UP 11/24/2013 Patient Education: Patient Medication Summary Completed 11/24/2013 Patient Education: [facility] - Saving AutoInj - 18+ - Dynamic Portal ID Completed 11/24/2013 Visit Plan: Lab discussed Daily accuchec ks Cont current meds 08/25/2013 Appointment: Jayna Vanessatel: [address] [place], [place] [phone] 08/24 FOLLOW UP 08/25/2013 Patient Education: Patient Medication Summary Completed 08/25/2013 Appointment: Jayna Vanessa WPtel: [address] [place], [place] [phone] FOLLOW UP 08/05/2013 Visit Plan: Continue Wellbutrin/Fluoxeti ne Fasting lab and fwup in 2mos 06/29/2013 Appointment: Jayna Vanessa WPtel: [address] [place], [place] [phone] 06/26 [facility] FOLLOW UP 06/29/2013 Patient Education: Patient Medication Summary Completed 06/29/2013 Visit Plan: Increase Wellbutrin to 300mg daily Add fluoxetine 20mg daily 05/26/2013 Appointment: Jayna Vanessa WPtel: [address] [place], [place] [phone] FOLLOW UP 05/26/2013 Patient Education: Patient Medication Summary Completed 05/26/2013 Visit Plan: OK to proceed with planned [facility] surgery next week Continue current meds Check fasting lab--CBC, CMP, TSH, free T4, HbA1C, Lipids, Vit D at end of this week prior to surgery 05/06/2013 Appointment: Jayna Vanessa WPtel: [address] [place], [place] [phone] FOLLOW UP 05/06/2013 Patient Education: Patient Medication Summary Completed 05/06/2013 Appointment: Jayna Vanessa WPtel: [address] [place], [place] [phone] ACUTE ILLNESS 04/23/2013 Patient Education: Patient Medication Summary Completed 04/23/2013 Patient Education: [facility] - Saving AutoInj - 18+ - Dynamic Portal ID Completed 04/23/2013 Visit Plan: Decrease Lasix to 20mg daily Leave potassium at 20meq daily Check Chem 7 in 1wk 03/31/2013 Appointment: Jayna Vanessa WPtel: [address] [place], [place] [phone] FOLLOW UP 03/31/2013 Patient Education: Patient Medication Summary Completed 03/31/2013 Appointment: Conchita Capone WPtel: [address] [place], [place] [phone] ACUTE ILLNESS 03/05/2013 Patient Education: Patient Medication Summary Completed 03/05/2013 Visit Plan: Lab discussed Continue curre nt meds Pt is going to start allergy injections Go for port placement to continue prolastin infusions 02/04/2013 Appointment: Jayna Vanessa WPtel: [address] [place], [place] [phone] ACUTE ILLNESS 02/04/2013 Patient Education: Patient Medication Summary Completed 02/04/2013 Visit Plan: 2-D ECHO discussed See Pulmo nology Pt states cough had went away with allergy meds and then has came back Continue allergy meds and add pepcid BID Discussed allergy testing 11/27/2012 Appointment: Jayna Vanessa WPtel: [phone] FOLLOW UP 11/27/2012 Patient Education: [...] Vanessa WPtel: [facility]4 [phone] FOLLOW UP 11/11/2012 Patient Education: Patient Medication Summary Completed 11/11/2012 Visit Plan: Hold metformin Check CMP, Li pids, TSH, Free T4, HbA1C Check PFTs 10/20/2012 Appointment: Jayna Vanessa WPtel: [address] [place], [place] [phone] 10/17 left message FOLLOW UP 10/20/2012 Patient Education: Patient Medication Summary Completed 10/20/2012 Appointment: Jayna Vanessa WPtel: [address] [place], [place] [phone] 10/13 FOLLOW UP 10/14/2012 Visit Plan: Discussed fluids and rest. W ill monitor for worsening symptoms/fever. Azithromycin, medrol dose pack and refil on cough syrup. Pt. will notify if symptoms worsen or persist. 09/03/2012 Appointment: Lizzie Kelly WPtel: [address] [place], [place] [phone] ACUTE ILLNESS 09/03/2012 Patient Education: Patient Medication Summary Completed 09/03/2012 Visit Plan: discussed that symptoms star edvin around Lion time. Will begin culturelle BID and monitor for fever or worsening symptoms. Fluid intake important. CBC, CMP, sed rate and stool studies. Order written for Mag lab. 07/23/2012 Appointment: Lizzie Kelly WPtel: [address] [place], [place] [phone] ACUTE ILLNESS 07/23/2012 Patient Education: Patient Medication Summary Completed 07/23/2012 Visit Plan: Increase Metformin to 1000mg po BID Accuchecks daily Continue rest of meds at current dose and low-fat, low-sugar diet with increased exercise Check fasting lab in 4mos Restart Nexium 05/20/2012 Appointment: Jayna Vanessa WPtel: [address] [place], [place] [phone] patient had bad night so missed 05/06 appt...left voicemail 05/19 FOLLOW UP 05/20/2012 Patient Education: Patient Medication Summary Completed 05/20/2012 Appointment: Jayna Vanessa WPtel: [address] [place], [place] [phone] patient had bad night so missed 05/06 appt time. cn FOLLOW UP 05/06/2012 Appointment: Galina Leos WPtel: [address] [place], [place] [phone] ACUTE ILLNESS 04/04/2012 Patient Education: Patient Medication Summary Completed 04/04/2012 Visit Plan: Cryotherapy as above 02/20/2012 Appointment: Jayna Vanessa WPtel: [address] [place], [place] [phone] 02/18 OFFICE SURGERY 02/20/2012 Patient Education: Patient Medication Summary Completed 02/20/2012 Visit Plan: Increase Metfromin to 1000mg daily Continue all other current meds 01/02/2012 Appointment: Jayna Vanessa WPtel: [address] [place], [place] [phone] FOLLOW UP 01/02/2012 Patient Education: Patient Medication Summary Completed 01/02/2012 Appointment: Lizzie Kelly WPtel: [address] [place] [address] ACUTE ILLNESS 09/04/2011 Patient Education: Patient Medication Summary Completed 09/04/2011 Visit Plan: Finish Keflex Proceed with c olonoscopy Increase aspirin to 325mg daily for next 2wks Add Vimovo 20/500mg po Daily 08/14/2011 Appointment: Jayna Vanessa WPtel: [address] [place], [place] [phone] [facility] Follow Up 08/14/2011 Patient Education: Patient Medication Summary Completed 08/14/2011 Appointment: Lizzie Kelly WPtel: [address] [place], [place] [phone] ACUTE ILLNESS 07/31/2011 Patient Education: Patient Medication Summary Completed 07/31/2011 Visit Plan: Doxy and steroids. Codeine/g uiaf cough syrup. Pt. will monitor for worsening symptoms and notify if fever occurs. Encouraged rest and fluids. 07/25/2011 Appointment: Lizzie Kelly WPtel: [address] [place], [place] [phone] ACUTE ILLNESS 07/25/2011 Patient Education: Patient Medication Summary Completed 07/25/2011 Visit Plan: Check full lab in 3mos Radha nue with all current meds Continue PT for knee 07/12/2011 Appointment: Jayna Vanessa WPtel: [address] [place], [place] [phone] FOLLOW UP 07/12/2011 Patient Education: Patient Medication Summary Completed 07/12/2011 Visit Plan: Continue symbicort for 2 mor e weeks 05/09/2011 Appointment: Jayna Vanessa WPtel: [address] [place], [place] [phone] FOLLOW UP 05/09/2011 Patient Education: Patient Medication Summary Completed 05/09/2011 Appointment: Jayna Vanessa WPtel: [address] [place], [place] [phone] ER Follow UP 05/02/2011 Patient Education: Patient Medication Summary Completed 05/02/2011 Visit Plan: Pt. has recently finished ro und of Cefdinir with no improvement. Chest x-ray, CBC, CMP and mycoplasma order given to pt. Pt. will start Doxycycline. 04/25/2011 Appointment: Lizzie Kelly WPtel: [address] [place] [address] FOLLOW UP 04/25/2011 Patient Education: Patient Medication Summary Completed 04/25/2011 Appointment: Lizzie Kelly WPtel: [address] [place] [address] ACUTE ILLNESS 04/04/2011 Patient Education: Patient Medication Summary Completed 04/04/2011 Appointment: Lizzie Kelly WPtel: [address] [place], [place] [id number] ACUTE ILLNESS 04/03/2011 Visit Plan: Decrease Synthroid to 150mcg daily Repeat TSH and Free T4 in 2mos Knee injection as above 03/01/2011 Appointment: Jayna Vanessa WPtel: [address] [place], [place] [phone] 03/01/2011 Patient Education: Patient Medication Summary Completed 03/01/2011 Visit Plan: Increase Synthroid to 175mcg po daily Check TSH, Free T4 in 8wks Injection given to knee as above Continue Pt 01/04/2011 Appointment: Jayna Vanessa WPtel: [address] [place], [place] [phone] FOLLOW UP 01/04/2011 Patient Education: Patient Medication Summary Completed 01/04/2011 Visit Plan: Septra DS, Mupirocin topical . Pt. will observe wound and report worsening symptoms. 12/07/2010 Appointment: Lizzie Kelly WPtel: [address] [place], [place] [id number] ACUTE ILLNESS 12/07/2010 Patient Education: Patient Medication Summary Completed 12/07/2010 Visit Plan: Increase Synthroid to 150mcg po daily Add Metformin Diet and exercise discussed at length again Repeat thyroid US Add Vit D level Will see if polydipsia improves with metformin 10/09/2010 Appointment: Jayna Vanessa WPtel: [address] [place], [place] [phone] FOLLOW UP 10/09/2010 Patient Education: Patient Medication Summary Completed 10/09/2010 Visit Plan: Increase Synthroid to 125mcg daily Decrease Vit D 50,000 u three times a week Discussed HRT Proceed with sleep study Fwup pending sleep study results 08/07/2010 Appointment: Jayna Vanessa WPtel: [address] [place], [place] [phone] FOLLOW UP 08/07/2010 Patient Education: Patient Medication Summary Completed 08/07/2010 Visit Plan: Decrease Synthroid to 100mcg QD Check thyroid lab in 2mos Check estradiol levels in 2mos--discussed HRT Increase Vit D 50,000u to 1 daily M-F 06/06/2010 Appointment: Jayna Vanessa WPtel: [address] [place], [place] [phone] ACUTE ILLNESS 06/06/2010 Patient Education: Patient Medication Summary Completed 06/06/2010 Visit Plan: Injections to knees as above 04/12/2010 Appointment: Jayna Vanessal: [address] [place], [place] [phone] OFFICE SURGERY 04/12/2010 Patient Education: Patient Medication Summary Completed 04/12/2010 Visit Plan: Decrease Synthroid to 175mcg QD Check lab in 2mos Change daily Vit D to weekly 03/20/2010 Appointment: Janya Vanessa WPtel: [address] [place], [place] [phone] ESTABLISHED PATIENT 03/20/2010 Patient Education: Patient Medication Summary Completed 03/20/2010 Appointment: Jayna Vanessa WPtel: [address] [place], [place] [phone] ACUTE ILLNESS 01/30/2010 Patient Education: Patient Medication Summary Completed 01/30/2010 Appointment: Jayna Vanessa WPtel: [address] [place], [place] [phone] ACUTE ILLNESS 01/09/2010 Patient Education: Patient Medication Summary Completed 01/09/2010 Appointment: Jayna Vanessa WPtel: [address] [place], [place] [phone] BP CHECK 11/07/2009 Patient Education: Patient Medication Summary Completed 11/07/2009 Appointment: Jayna Vanessa WPtel: [address] [place], [place] [phone] OFFICE SURGERY 10/26/2009 Patient Education: Patient Medication Summary Completed 10/26/2009 Appointment: Lizzie Kelly WPtel: [address] [place], [place] [phone] OFFICE SURGERY 10/17/2009 Patient Education: Patient Medication [...] up appnt. 10/04/2009 Appointment: Lizzie Kelly WPtel: [address] [place], [place] [phone] ACUTE ILLNESS 10/04/2009 Patient Education: Patient Medication Summary Completed 10/04/2009 Visit Plan: E-scribed refils. Pt. report s that she normally has lab work drawn and orders are given (faxed) to her normal lab facility by Patricia. Pt. states her migraine headaches have abated for now and that she is going to see her migraine doctor in [place] in the near future(Dr Cook) Pt will seek re-eval as necessary for acute issues. 09/21/2009 Appointment: Lizzie Kelly WPtel: [address] [place], [place] [phone] [place] CHECK UP 09/21/2009 Patient Education: Patient Medication Summary Completed 09/21/2009 Appointment: Lizzie Kelly WPtel: [address] [place], [place] [phone] [place] CHECK UP 09/20/2009 Appointment: Lizzie Kelly WPtel: [address] [place], [place] [phone] [place] FOLLOW UP 09/19/2009 Referral: Alf Lang WPtel: #1 [facility] [place] Referral Appointment Requested Referral: Singh Pina WPtel: [address] [facility] [place] Referral Appointment Requested Referral: Aditya Stone WPtel: [address] [facility] [address] [id number] [place] Referral Appointment Requested Instructions Comment Date [...] going to see her migraine doctor in [place] in the near future(Dr Cook) Pt will [...]
--- OUTSIDE RECORDS SUMMARY | 2022-09-10 17:09 | XMS REPORT | CCD ---
Author Author Marcella Vanessa D.O. Organization [facility] Address [address] [place] [address] Phone Care Team Providers Care Product Expert Name Role Phone Jayna Vanessa D.O., PP Unavailable CCM Unavailable Summary Purpose Interface Exchange Insurance Providers Payer name Policy type / Coverage type Covered green party ID Effective Begin Date Effective End Date [employer] Commercial Insurance [id number] Unknown Commercial Insurance [id number] Unknown Family history Side Diagnosis Age At Onset Heart disease Unknown Diabetes Unknown Sister Diagnosis Age At Onset Diabetes Unknown Brother Diagnosis Age At Onset Diabetes Unknown Mother Diagnosis Age At Onset Heart disease Unknown Father Diagnosis Age At Onset Heart disease Unknown Social History Social History Element Codes Description Effective Dates Tobacco history SNOMED CT: [id number] Never smoker 04/04/2011 Marital status Unknown 09/21/2009 [...] gastroenteritis ICD-10: K52.9 ICD-9: 558.9 07/05/2020 Active 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 11/28/2016 Active [...] ANXIETY STATE NOS ICD-9: 300.00 03/05/2013 Active Jpusr-0-tbnqrfjjyys 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 02/04/2013 A ctive DYSPNEA [...] Fill Instructions ciprofloxacin 250 mg tablet RxNorm: 743864 Take 1 Tablet(s) Ora l Q12H 06/29/2022 07/03/2022 Inactive levothyroxine 150 mcg tablet RxNorm: 699893 Take 1 Tablet(s) Or al QAM 06/03/2022 08/01/2022 Inactive Wellbutrin XL 300 mg 24 hr tablet, extended release RxNorm: 642155 Take 1 Tablet(s) Oral QAM replaces 150mg dose 05/28/2022 08/25/2022 Active Xyzal 5 mg tablet RxNorm: 821603 Take 1 Tablet(s) Oral QPM 05/10/2010/06/2022 Active Claritin 10 mg tablet RxNorm: 308958 Take 1 Tablet(s) Oral QAM 04/2409/06/2022 Active Flonase Allergy Relief 50 mcg/actuation nasal spray,suspensi on RxNorm: 2066834 Take 1 Baltic Nasal two times a day 05/10/2022 06/08/2022 Inactive Wellbutrin XL 150 mg 24 hr tablet, extended release RxNorm: 017790 Take 1 Tablet(s) Oral QAM 05/10/2022 05/27/2022 Inactive sumatriptan 100 mg tablet RxNorm: 237978 1 Tablet(s) Or al after onset of migraine; may repeat after 2 hours if headache returns, not to exceed 200mg in 24hrs replaces rizatriptan 04/19/2022 04/19/2022 Inactive sumatriptan 100 mg tablet RxNorm: 705617 1 Tablet(s) Or al after onset of migraine; may repeat after 2 hours if headache returns, not to exceed 200mg in 24hrs replaces rizatriptan 04/19/2022 04/19/2022 Inactive propranolol 20 mg tablet RxNorm: 351793 TAKE 1 TABLET BY MOUTH TWICE DAILY 04/18/2022 10/14/2022 Active rizatriptan 10 mg disintegrating tablet RxNorm: 086395 Take 1 Tablet(s) Oral on top of tongue, allow to dissolve then swallow once, may repeat every 2 hrs; max 30 mg/24hrs 04/18/2022 04/18/2022 Inactive prednisone 20 mg tablet RxNorm: 262199 Take 1 Tablet(s) Oral tw o times a day 02/15/2022 02/21/2022 Inactive Nurtec ODT 75 mg disintegrating tablet RxNorm: 5399537 T ary 1 Tablet(s) Oral per 24 hours as needed for migraine 02/09/2022 02/09/2022 Inactive Nurtec ODT 75 mg disintegrating tablet RxNorm: 6455763 T ary 1 Tablet(s) Oral per 24 hours as needed for migraine 02/09/2022 02/09/2022 Inactive fluticasone propionate 50 mcg/actuation nasal spray,suspensi on RxNorm: 1406523 SPRAY ONE SPRAY IN EACH NOSTRIL TWICE DAILY NEEDED 02/05/20222021 Inactive levothyroxine 150 mcg tablet RxNorm: 354435 Take 1 Tablet(s) Or al QAM 02/04/2022 02/04/2022 Inactive albuterol sulfate HFA 90 mcg/actuation aerosol inhaler RxNor m: 0013778 Inhale 2 Puff(s) Oral Q4H as needed 01/05/2022 04/04/2022 Inactive pantoprazole 40 mg tablet,delayed release RxNorm: 724230 Take 1 Tablet(s) Oral QD 01/04/2022 07/02/2022 Inactive propranolol 20 mg tablet RxNorm: 169748 TAKE 1 TABLET BY MOUTH TWICE DAILY 01/04/2022 04/17/2022 Inactive levothyroxine 150 mcg tablet RxNorm: 395611 Take 1 Tablet(s) Or al QAM 12/05/2021 12/05/2021 Inactive metronidazole 500 mg tablet RxNorm: 803821 Take 1 Table t(s) Oral two times a day 11/29/2021 12/05/2021 Inactive Singulair 10 mg tablet RxNorm: 651828 Take 1 Tablet(s) Oral QPM 06/202105/09/2022 Inactive Diflucan 100 mg tablet RxNorm: 706446 Take 1 Tablet(s) Oral QD 06/202111/28/2021 Inactive pantoprazole 40 mg tablet,delayed release RxNorm: 639199 Take 1 Tablet(s) Oral QD 11/06/2021 11/06/2021 Inactive fluticasone propionate 50 mcg/actuation nasal spray,suspensi on RxNorm: 6261536 SPRAY ONE SPRAY IN EACH NOSTRIL TWICE DAILY NEEDED 11/03/20212021 Inactive scopolamine 1 mg over 3 days transdermal patch RxNorm: 58110 2 Apply 1 Unit Dose Transdermal Q72H behind ear 10/30/2021 02/05/2022 Inactive albuterol sulfate HFA 90 mcg/actuation aerosol inhaler RxNor m: 1217039 Inhale 2 Puff(s) Oral Q4H as needed 10/05/2021 11/24/2021 Inactive pantoprazole 40 mg tablet,delayed release RxNorm: 035065 Take 1 Tablet(s) Oral QD 10/05/2021 10/05/2021 Inactive meloxicam 7.5 mg tablet RxNorm: 799062 Take 1 Tablet(s) Oral QD for pain 09/05/2021 09/11/2021 Inactive baclofen 10 mg tablet RxNorm: 091755 Take 0.5-1 Tablet( s) Oral three times per week as needed for muscle spasm 09/05/2021 02/05/2022 Inactive prednisone 20 mg tablet RxNorm: 554599 Take 1 Tablet(s) Oral QD 08/202108/28/2021 Inactive pantoprazole 40 mg tablet,delayed release RxNorm: 367612 Take 1 Tablet(s) Oral QD 07/07/2021 09/04/2021 Inactive fluticasone propionate 50 mcg/actuation nasal spray,suspensi on RxNorm: 5526971 Take 1 Baltic Nasal two times a day in each nostrilas needed 07/04/2021 10/01/2021 Inactive Decadron 6 mg tablet RxNorm: 090250 Take 1 Tablet(s) Oral QD 202107/08/2021 Inactive albuterol sulfate HFA 90 mcg/actuation aerosol inhaler RxNor m: 7656842 Inhale 2 Puff(s) Oral Q4H as needed 06/08/2021 09/05/2021 Inactive propranolol 20 mg tablet RxNorm: 527154 TAKE 1 TABLET BY MOUTH TWICE DAILY 06/08/2021 06/08/2021 Inactive pantoprazole 40 mg tablet,delayed release RxNorm: 084854 Take 1 Tablet(s) Oral QD 04/09/2021 06/07/2021 Inactive ProAir HFA 90 mcg/actuation aerosol inhaler RxNorm: 951552 2 Puff(s) Inhalation Q4H as needed 03/13/2021 03/13/2021 Inactive citalopram 10 mg tablet RxNorm: 846386 1 Tablet(s) Oral two antonio es a day 03/13/2021 02/05/2022 Inactive levothyroxine 150 mcg tablet RxNorm: 711745 TAKE 1 Tabl et BY MOUTH EVERY MORNING (REPLACES 137 MCG DOSE) 03/09/2021 03/09/2021 Inactive pantoprazole 40 mg tablet,delayed release RxNorm: 747828 Take 1 Tablet(s) Oral QD 02/08/2021 04/08/2021 Inactive triamcinolone acetonide 0.1 % topical cream RxNorm: 5461257 Take Application Topical two times a day to arm rash 01/19/2021 01/19/2021 Inactive prednisone 20 mg tablet RxNorm: 452509 Take 1 Tablet(s) Oral QD 01/23/2021 Inactive levothyroxine 150 mcg tablet RxNorm: 740099 Take 1 Tabl et(s) Oral QAM replaces 137mcg dose 01/03/2021 01/03/2021 Inactive prednisone 20 mg tablet RxNorm: 673835 Take 2 Tablet(s) Oral QD 01/202112/03/2020 Inactive promethazine-DM 6.25 mg-15 mg/5 mL oral syrup RxNorm: 793601 Take 5 Milliliter(s) Oral Every 6 hours as needed, not to exceed 30 mL in 24 hours 11/29/2020 12/03/2020 Inactive doxycycline hyclate 100 mg capsule RxNorm: 9311076 1 Cap kimi(s) Oral two times a day 09/29/2020 10/05/2020 Inactive Lalita-D 12 Hour 60 mg-120 mg tablet,extended release RxNor m: 404324 1 Tablet(s) Oral QD 09/19/2020 10/03/2020 Inactive ProAir HFA 90 mcg/actuation aerosol inhaler RxNorm: 406201 2 Inhalation Q4H as needed 09/19/2020 09/19/2020 Inactive propranolol 20 mg tablet RxNorm: 484498 TAKE 1 TABLET BY MOUTH TWICE DAILY 09/15/2020 09/15/2020 Inactive pantoprazole 40 mg tablet,delayed release RxNorm: 065382 1 Tabl et(s) Oral QD 09/09/2020 09/08/2020 Inactive pantoprazole 40 mg tablet,delayed release RxNorm: 627776 1 Tabl et(s) Oral QD 09/09/2020 11/07/2020 Inactive propranolol 20 mg tablet RxNorm: 149766 TAKE 1 TABLET BY MOUTH TWICE DAILY 08/24/2020 09/09/2020 Inactive levothyroxine 137 mcg tablet RxNorm: 409573 1 Tablet(s) Oral QD 08/202001/02/2021 Inactive axcpeodq-kwowdpvmx-raijnjxr 3.5 mg/mL-10,000 unit/mL-0 .1% eye drops RxNorm: 185359 4 Drop(s) Otic three times a day 08/10/2020 02/05/2022 Inactive prednisone 20 mg tablet RxNorm: 640221 1 Tablet(s) Oral two antonio es a day 08/01/2020 08/08/2020 Inactive pantoprazole 40 mg tablet,delayed release RxNorm: 286436 1 Tabl et(s) Oral QD 07/13/2020 09/08/2020 Inactive ondansetron HCl 4 mg tablet RxNorm: 614437 1 Tablet(s) Oral Q4H as needed for nausea 07/13/2020 05/09/2022 Inactive levothyroxine 137 mcg tablet RxNorm: 393673 1 Tablet(s) Oral QD 08/23/2020 Inactive pantoprazole 40 mg tablet,delayed release RxNorm: 523942 1 Tabl et(s) Oral QD 07/13/2020 07/12/2020 Inactive ondansetron HCl 4 mg tablet RxNorm: 643517 1 Tablet(s) Oral Q4H as needed for nausea 07/05/2020 07/12/2020 Inactive Flagyl 500 mg tablet RxNorm: 561076 1 Tablet(s) Oral three time s a day 07/05/2020 07/12/2020 Inactive Fish Oil 1,000 mg (120 mg-180 mg) capsule RxNorm: 1 Caps ule(s) Oral QD 06/23/2020 09/18/2020 Inactive rosuvastatin 10 mg tablet RxNorm: 177546 1 Tablet(s) Oral MWF 06/2306/22/2020 Inactive rosuvastatin 10 mg tablet RxNorm: 280219 1 Tablet(s) Oral MWF 06/2302/05/2022 Inactive fluconazole 100 mg tablet RxNorm: 715956 1 Tablet(s) Oral QOD 05/1706/21/2020 Inactive Macrobid 100 mg capsule RxNorm: 413589 1 Capsule(s) Oral two ti mes a day 05/17/2020 05/24/2020 Inactive levothyroxine 137 mcg tablet RxNorm: 495926 TAKE 1 TABLET BY [facility] ONCE DAILY 05/16/2020 07/12/2020 Inactive Eliquis 5 mg tablet RxNorm: 2252196 1 Tablet(s) Oral two times a da y 04/25/2020 02/05/2022 Inactive propranolol 20 mg tablet RxNorm: 927567 TAKE 1 TABLET BY MOUTH TWICE DAILY 04/25/2020 08/23/2020 Inactive doxycycline hyclate 100 mg capsule RxNorm: 6066453 1 Cap kimi(s) Oral two times a day 03/24/2020 03/31/2020 Inactive doxycycline hyclate 100 mg capsule RxNorm: 8883277 1 Cap kimi(s) Oral two times a day 03/24/2020 03/23/2020 Inactive propranolol 20 mg tablet RxNorm: 471152 TAKE 1 TABLET BY MOUTH TWICE DAILY 03/15/2020 04/13/2020 Inactive Eliquis 5 mg tablet RxNorm: 7440225 1 Tablet(s) Oral two times a da y 03/14/2020 04/24/2020 Inactive Eliquis 5 mg tablet RxNorm: 8010133 1 Tablet(s) Oral two times a da y 03/14/2020 03/13/2020 Inactive levofloxacin 500 mg tablet RxNorm: 875671 1 Tablet(s) Oral QD 02/1802/26/2020 Inactive levofloxacin 500 mg tablet RxNorm: 950742 1 Tablet(s) Oral QD 02/1802/18/2020 Inactive Tessalon Perles 100 mg capsule RxNorm: 741782 1 Capsule (s) Oral three times a day as needed 02/16/2020 02/25/2020 Inactive levothyroxine 137 mcg tablet RxNorm: 453414 TAKE 1 TABLET BY [facility] ONCE DAILY 02/15/2020 03/15/2020 Inactive ProAir HFA 90 mcg/actuation aerosol inhaler RxNorm: 840291 2 Inhalation Q4H as needed 02/11/2020 09/18/2020 Inactive Medrol (Isaiah) 4 mg tablets in a dose pack RxNorm: 898679 Tablet( s) Oral 02/11/2020 02/11/2020 Inactive levothyroxine 137 mcg tablet RxNorm: 271886 TAKE 1 TABLET BY [facility] ONCE DAILY 12/16/2019 01/14/2020 Inactive propranolol 20 mg tablet RxNorm: 684022 TAKE 1 TABLET BY MOUTH TWICE DAILY 12/16/2019 01/14/2020 Inactive levothyroxine 137 mcg tablet RxNorm: 976970 TAKE 1 TABLET BY [facility] ONCE DAILY 10/16/2019 11/14/2019 Inactive prednisone 20 mg tablet RxNorm: 811664 1 Tablet(s) Oral two times a day for rash/hives 09/29/2019 10/04/2019 Inactive Probiotic 10 billion cell capsule RxNorm: 2141933 1 Capsule(s) O ral QD 09/14/2019 02/10/2020 Inactive Bactrim DS 800 mg-160 mg tablet RxNorm: 840242 1 Tablet(s) Oral two times a day 09/14/2019 09/13/2019 Inactive citalopram 10 mg tablet RxNorm: 228614 1 Tablet(s) Oral two antonio es a day 09/14/2019 12/20/2019 Inactive hydroxychloroquine 200 mg tablet RxNorm: 187027 1 Table t(s) Oral two times a day 09/14/2019 02/05/2022 Inactive Bactrim DS 800 mg-160 mg tablet RxNorm: 478976 1 Tablet(s) Oral two times a day 09/14/2019 09/24/2019 Inactive Cipro 250 mg tablet RxNorm: 357678 1 Tablet(s) Oral two times a day 09/02/2019 09/08/2019 Inactive levothyroxine 137 mcg tablet RxNorm: 198154 1 Tablet(s) Oral QD 10/10/2019 Inactive levothyroxine 137 mcg tablet RxNorm: 444239 1 Tablet(s) Oral QD 08/11/2019 Inactive propranolol 20 mg tablet RxNorm: 441265 TAKE 1 TABLET BY MOUTH TWICE DAILY 06/18/2019 12/14/2019 Inactive 06/18/2019 11:09:41 AM Cipro 250 mg tablet RxNorm: 040512 1 Tablet(s) Oral two times a day 04/17/2019 04/16/2019 Inactive Cipro 250 mg tablet RxNorm: 210385 1 Tablet(s) Oral two times a day 04/17/2019 04/24/2019 Inactive Macrobid 100 mg capsule RxNorm: 650883 1 Capsule(s) Oral two ti mes a day 04/15/2019 04/16/2019 Inactive metronidazole 500 mg tablet RxNorm: 893985 1 Tablet(s) Oral thr ee times a day 03/18/2019 03/28/2019 Inactive Bactrim DS 800 mg-160 mg tablet RxNorm: 726111 1 Tablet(s) Oral two times a day 03/18/2019 03/18/2019 Inactive Cipro 250 mg tablet RxNorm: 200043 1 Tablet(s) PO BID 01/26/201901/22 Inactive Flagyl 500 mg tablet RxNorm: 386372 1 Tablet(s) PO TID 01/26/201904/2019 Inactive prednisone 20 mg tablet RxNorm: 647606 1 Tablet(s) PO B ID for 4 days then 1 po daily for 4 days 01/08/2019 03/17/2019 Inactive doxycycline hyclate 100 mg capsule RxNorm: 9684724 1 Capsule(s) PO BID 01/08/2019 01/14/2019 Inactive doxycycline hyclate 100 mg capsule RxNorm: 7669876 1 Capsule(s) PO BID 01/08/2019 01/07/2019 Inactive propranolol 20 mg tablet RxNorm: 871422 1 Tablet(s) PO BID 12/24/1906/17/2019 Inactive Bactrim DS 800 mg-160 mg tablet RxNorm: 921329 1 Tablet (s) PO BID repeat urine culture 48 hours after antibiotics completed. 12/15/2018 12/14/2018 In active Bactrim DS 800 mg-160 mg tablet RxNorm: 465653 1 Tablet (s) PO BID repeat urine culture 48 hours after antibiotics completed. 12/15/2018 12/19/2018 In active levothyroxine 137 mcg tablet RxNorm: 261279 1 Tablet(s) PO QD 12/0906/06/2019 Inactive meclizine 25 mg tablet RxNorm: 792157 1 Tablet(s) PO TID for di zziness 10/30/2018 11/08/2018 Inactive doxycycline hyclate 100 mg tablet RxNorm: 0818896 1 Tablet(s) PO BI D 10/07/2018 10/16/2018 Inactive albuterol sulfate HFA 90 mcg/actuation aerosol inhaler RxNor m: 960154 2 Puff(s) INH Q4H as needed 10/07/2018 02/10/2020 Inactive chlorpheniramine 4 mg tablet RxNorm: 4429990 1 Tablet(s) PO QHS for allergies 10/07/2018 03/17/2019 Inactive Tessalon 200 mg capsule RxNorm: 511636 1 Capsule(s) PO TID 10/08/1910/26/2018 Inactive doxycycline hyclate 100 mg tablet RxNorm: 7295744 1 Tablet(s) PO BI D 10/07/2018 10/06/2018 Inactive Tessalon 200 mg capsule RxNorm: 041379 1 Capsule(s) PO TID 10/08/1910/06/2018 Inactive levothyroxine 137 mcg tablet RxNorm: 028153 1 Tablet(s) PO QD 08/0512/02/2018 Inactive propranolol 20 mg tablet RxNorm: 634740 1 Tablet(s) PO BID 06/23/2012/19/2018 Inactive chlorpheniramine 4 mg tablet RxNorm: 4569187 1 Tablet(s) PO QHS for allergies 06/23/2018 08/21/2018 Inactive levothyroxine 137 mcg tablet RxNorm: 148921 1 Tablet(s) PO QD 06/0308/01/2018 Inactive levothyroxine 137 mcg tablet RxNorm: 577216 1 Tablet(s) PO QD 06/0306/02/2018 Inactive Synthroid 150 mcg tablet RxNorm: 192870 1 Tablet(s) PO QD 04/03/2018 06/22/2018 Inactive Synthroid 150 mcg tablet RxNorm: 315725 1 Tablet(s) PO QD 04/03/2018 04/02/2018 Inactive propranolol 20 mg tablet RxNorm: 661940 1 Tablet(s) PO BID 03/17/20 18 06/14/2018 Inactive propranolol 20 mg tablet RxNorm: 940250 1 Tablet(s) PO BID 03/17/20 18 06/21/2020 Inactive Lancets,Ultra Thin RxNorm: Miscellaneous Use to test blood sugar daily and as needed (Dx: E11.65) 02/28/2018 05/09/2022 Inactive Contour Test Strips RxNorm: Miscellaneous Test b lood sugar daily and as needed (Dx: E11.65) 02/28/2018 05/09/2022 Inactive Contour Meter RxNorm: 1 Miscellaneous DX: E11.65 02/27/20182021 Inactive DX: E11.65 Synthroid 175 mcg tablet RxNorm: 093841 1 Tablet(s) PO QD 01/28/2018 04/02/2018 Inactive Synthroid 175 mcg tablet RxNorm: 615730 1 Tablet(s) PO QD 01/16/2018 04/02/2018 Inactive Medrol (Isaiah) 4 mg tablets in a dose pack RxNorm: 397571 Tablet(s) P O 10/16/2017 01/15/2018 Inactive cyclobenzaprine 7.5 mg tablet RxNorm: 308819 1/2-1 Tablet(s) PO TID as needed 10/16/2017 06/22/2018 Inactive pantoprazole 40 mg tablet,delayed release RxNorm: 493253 1 Tabl et(s) PO QD 08/21/2017 06/22/2018 Inactive Nexium 40 mg capsule,delayed release RxNorm: 699298 1 Capsule(s ) PO QD 08/20/2017 08/20/2017 Inactive doxycycline hyclate 100 mg capsule RxNorm: 6225000 1 Capsule(s) PO BID 08/13/2017 08/12/2017 Inactive doxycycline hyclate 100 mg capsule RxNorm: 3168103 1 Capsule(s) PO BID 08/13/2017 08/19/2017 Inactive Tessalon Perles 100 mg capsule RxNorm: 512266 1 Capsule(s) PO T ID as needed 07/29/2017 08/07/2017 Inactive prednisone 20 mg tablet RxNorm: 796568 1 Tablet(s) PO BID 07/25/2017 07/27/2017 Inactive albuterol sulfate HFA 90 mcg/actuation aerosol inhaler RxNor m: 652719 2 Puff(s) INH Q4H as needed 07/25/2017 10/06/2018 Inactive doxycycline hyclate 100 mg capsule RxNorm: 0694212 1 Capsule(s) PO BID 06/10/2017 06/19/2017 Inactive prednisone 20 mg tablet RxNorm: 929264 1 Tablet(s) PO T ID for 2 days then 1 po BID for 2 days then 1 daily for 3 days 06/10/2017 08/12/2017 Inactive fenofibrate micronized 134 mg capsule RxNorm: 097556 TAKE 1 CAP KIMI DAILY 06/03/2017 06/22/2018 Inactive Zithromax Z-Isaiah 250 mg tablet RxNorm: 974657 Tablet(s) PO Take as directed 05/28/2017 06/09/2017 Inactive prednisone 20 mg tablet RxNorm: 695146 2 Tablet(s) PO QD 05/28/2017 1 08/01/2016 Inactive Tessalon Perles 100 mg capsule RxNorm: 771135 1 Capsule(s) PO T ID as needed 05/28/2017 06/09/2017 Inactive Janumet XR 100 mg-1,000 mg tablet,extended release RxNorm: 1 360598 1 Tablet(s) PO QD 02/14/2017 06/22/2018 Inactive fluoxetine 40 mg capsule RxNorm: 517142 1 Capsule(s) PO QD 02/15/20 17 06/22/2018 Inactive Vitamin D2 50,000 unit capsule RxNorm: 470458 1 Capsule (s) PO TAKE 1 CAPSULE BY MOUTH TWICE WEEKLY 02/11/2017 07/10/2017 Inactive Generic For:* DRISDOL [id number] 02/03/2015 10:10:59 AM Janumet XR 100 mg-1,000 mg tablet,extended release RxNorm: 1 960204 1 Tablet(s) PO QD 09/24/2016 10/06/2018 Inactive Vitamin D2 50,000 unit capsule RxNorm: 293737 Capsule(s ) TAKE 1 CAPSULE BY MOUTH TWICE WEEKLY 09/11/2016 02/11/2017 Inactive Generic For:*DRI SDOL [id number] 02/03/2015 10:10:59 AM Pepcid 20 mg tablet RxNorm: 730394 Tablet(s) PO TAKE 1 TABLET BY MOUTH TWICE DAILY. 06/14/2016 06/13/2016 Inactive fluoxetine 40 mg capsule RxNorm: 587179 1 Capsule(s) PO QD 06/14/20 16 12/10/2016 Inactive loratadine 10 mg tablet RxNorm: 697091 1 Tablet(s) PO QD 1 Tabl et(s) PO BID 06/14/2016 04/03/2017 Inactive [AttnRPh: Saving ryan ly/adjudicate RxGRP:SG20 RxBIN:[id number] RxPCN: ID#:[id number]] Vitamin D2 50,000 unit capsule RxNorm: 370222 Capsule(s ) TAKE 1 CAPSULE BY MOUTH TWICE WEEKLY 06/14/2016 09/10/2016 Inactive Generic For:*VERN FREEDMAN [id number] 02/03/2015 10:10:59 AM Synthroid 175 mcg tablet RxNorm: 491937 1 Tablet(s) PO Saturday t hrough Saturday QD 06/05/2016 01/15/2018 Inactive Synthroid 150 mcg tablet RxNorm: 790852 1 Tablet(s) PO Sat and Sun 11/09/2015 06/04/2016 Inactive Synthroid 175 mcg tablet RxNorm: 054884 1 Tablet(s) PO Saturday t hrough Saturday11/09/2015 06/04/2016 Inactive Synthroid 150 mcg tablet RxNorm: 287005 1 Tablet(s) PO Sat and Sun , Th, Sat, Sun 11/09/2015 11/08/2015 Inactive Janumet XR 100 mg-1,000 mg tablet,extended release RxNorm: 1 675695 TAKE 1 TABLET DAILY 09/30/2015 09/24/2016 Inactive azithromycin 500 mg tablet RxNorm: 575358 1 Tablet(s) PO QD 016 07/25/2015 Inactive azithromycin 500 mg tablet RxNorm: 952978 1 Tablet(s) PO QD 016 08/01/2015 Inactive loratadine 10 mg tablet RxNorm: 879705 1 Tablet(s) PO BID 04/06/2015 06/14/2016 Inactive [AttnRPh: Saving apply/adjudicate RxGRP: SG20 RxBIN:[id number] RxPCN: ID#:[id number]] Synthroid 175 mcg tablet RxNorm: 701894 1 Tablet(s) PO M, W, F 10/0 10/201411/08/2015 Inactive Synthroid 150 mcg tablet RxNorm: 896730 1 Tablet(s) PO QD , T h, Sat, Sun 03/28/2015 11/08/2015 Inactive propranolol 20 mg tablet RxNorm: 992383 1 Tablet(s) PO BID 02/09/20 15 06/13/2016 Inactive fluoxetine 40 mg capsule RxNorm: 940851 1 Capsule(s) PO QD 02/09/20 15 06/14/2016 Inactive Vitamin D2 50,000 unit capsule RxNorm: 556119 TAKE 1 CA PSULE BY MOUTH TWICE WEEKLY 02/03/2015 06/14/2016 Inactive Generic For:*VERN FREEDMAN [id number] 02/03/2015 10:10:59 AM Lipitor 80 mg tablet RxNorm: 270624 1 Tablet(s) PO QD 01/24/201507/26 Inactive [AttnRPh: Saving apply/adjudicate RxGRP: SG20 RxBIN:[id number] RxPCN: ID#:[id number]] Bactrim DS 800 mg-160 mg tablet RxNorm: 857634 1 Tablet(s) PO BID 0 01/12/2015 01/11/2015 Inactive Synthroid 150 mcg tablet RxNorm: 242033 1 Tablet(s) PO QD 01/12/2015 03/27/2015 Inactive Bactrim DS 800 mg-160 mg tablet RxNorm: 911119 1 Tablet(s) PO BID 0 01/12/2015 01/18/2015 Inactive fluoxetine 40 mg capsule RxNorm: 196316 1 Capsule(s) PO QD 01/12/20 15 02/07/2015 Inactive Synthroid 137 mcg tablet RxNorm: 890465 1 Tablet(s) PO QD 12/08/2014 01/11/2015 Inactive [AttnRPh: Saving apply/adjudicate RxGRP: SG20 RxBIN:[id number] RxPCN: ID#:[id number]] Medrol (Isaiah) 4 mg tablets in a dose pack RxNorm: 848927 6 Tablet(s) PO QD --then as directed 11/24/2014 11/29/2014 Inactive albuterol sulfate HFA 90 mcg/actuation aerosol inhaler RxNor m: 876079 2 Puff(s) INH Q4H as needed 10/27/2014 07/24/2017 Inactive phenazopyridine 100 mg tablet RxNorm: 8365582 1 Tablet(s) PO TID 11/07/2015 Inactive [AttnRPh: Saving apply/adjud icate RxGRP:SG20 RxBIN:[id number] RxPCN:HT ID#:[id number]] Macrobid 100 mg capsule RxNorm: 023712 1 Capsule(s) PO BID 10/28/19 15 11/02/2014 Inactive [SAVINGS FOR NON-COVERED RUBIO GS -- BIN:[id number], PCN: ASPROD1, Group: XXXXX, ID# [id number], Questions: . THIS IS NOT INSURANCE.] prednisone 20 mg tablet RxNorm: 640440 1 Tablet(s) PO BID 10/27/2014 10/31/2014 Inactive AttnRPh: Saving apply/adjudicate RxGRP:S G20 RxBIN:[id number] RxPCN:HT ID#:[id number]: Saving apply/adjudicate RxGRP:SG20 RxBIN:[id number] RxPCN:HT ID#:[id number] Macrobid 100 mg capsule RxNorm: 977547 1 Capsule(s) PO BID 09/24/19 15 09/29/2014 Inactive [SAVINGS FOR NON-COVERED RUBIO GS -- BIN:992418, PCN: ASPROD1, Group: XXXXX, ID# [id number], Questions: . THIS IS NOT INSURANCE.] phenazopyridine 100 mg tablet RxNorm: 4882198 1 Tablet(s) PO TID 09/24/2014 Inactive [SAVINGS FOR NON-COVERED RUBIO GS -- BIN:874688, PCN: ASPROD1, Group: XXXXX, ID# [id number], Questions: . THIS IS NOT INSURANCE.] propranolol 60 mg tablet RxNorm: 587497 1 Tablet(s) PO QD 07/26/2014 02/07/2015 Inactive [SAVINGS FOR UNINSURED PATIENTS -- BIN:0 97376, PCN: ASPROD1, Group: [id number], ID# [id number], Process claim through [employer], for questions: . THIS IS NOT INSURANCE.] loratadine 10 mg tablet RxNorm: 925906 1 Tablet(s) PO BID 07/12/2014 07/11/2014 Inactive [AttnRPh: Saving apply/adjudicate RxGRP: SG20 RxBIN:[id number] RxPCN: ID#:[id number]] loratadine 10 mg tablet RxNorm: 758080 1 Tablet(s) PO BID 07/12/2014 10/06/2018 Inactive [SAVINGS FOR UNINSURED PATIENTS -- BIN:0 [id number], PCN: [id number], Group: [id number], ID# [id number], Process claim through [employer], for questions: . THIS IS NOT INSURANCE.] Vitamin D2 50,000 unit capsule RxNorm: 345652 1 Capsule (s) PO Take 1 capsule by mouth twice weekly 05/18/2014 02/02/2015 Inactive Pepcid 20 mg tablet RxNorm: 494738 TAKE 1 TABLET BY MOUTH TWICE DAILY. 05/18/2014 06/14/2016 Inactive Generic For:PEPCID 2 0MG 05/18/2014 11:28:51 AM Janumet XR 100 mg-1,000 mg tablet,extended release RxNorm: 1 939227 1 Tablet(s) PO QD 05/12/2014 08/09/2014 Inactive [SAVINGS FOR UNI NSURED PATIENTS -- BIN:[id number], PCN: ASPROD1, Group: [id number], ID# [id number], Process claim through [employer], for questions: . THIS IS NOT INSURANCE.] Voltaren 1 % topical gel RxNorm: 477622 TOP BID 04/21/2014 5 Inactive Apply to affected areas 2-3 times daily as needed. Trilipix 135 mg capsule,delayed release RxNorm: 546861 1 Tablet(s) PO QD 1 Capsule(s) PO QD 04/21/2014 09/17/2014 Inactive may do 90 day f ill if desired Synthroid 137 mcg tablet RxNorm: 000318 1 Tablet(s) PO QD 03/30/2014 09/25/2014 Inactive [AttnRPh: Saving apply/adjudicate RxGRP: SG20 RxBIN:[id number] RxPCN: ID#:[id number]] Cipro 250 mg tablet RxNorm: 125347 1 Tablet(s) PO BID 03/30/201403/24 Inactive [SAVINGS FOR UNINSURED PATIENTS -- BIN:[id number], PCN: ASPROD1, Group: [id number], ID# [id number], Process claim through MedImpact, for questions: . THIS IS NOT INSURANCE.] Janumet XR 100 mg-1,000 mg tablet,extended release RxNorm: 1 099464 2 Tablet(s) PO QD 01/06/2014 01/05/2014 Inactive [SAVINGS FOR UNI NSURED PATIENTS -- BIN:[id number], PCN: ASPROD1, Group: [id number], ID# [id number], Process claim through MedImpact, for questions: . THIS IS NOT INSURANCE.] Janumet XR 100 mg-1,000 mg tablet,extended release RxNorm: 1 198390 1 Tablet(s) PO QD 01/06/2014 04/05/2014 Inactive [SAVINGS FOR UNI NSURED PATIENTS -- BIN:430568, PCN: ASPROD1, Group: [id number], ID# [id number], Process claim through MedImpact, for questions: . THIS IS NOT INSURANCE.] propranolol 60 mg tablet RxNorm: 441700 1 Tablet(s) PO QD 12/28/2013 07/26/2014 Inactive [AttnRPh: Saving apply/adjudicate RxGRP: SG20 RxBIN:[id number] RxPCN: ID#:[id number]] Synthroid 150 mcg tablet RxNorm: 469118 1 Tablet(s) PO QD brand onl y 12/28/2013 04/20/2014 Inactive [AttnRPh: Saving apply/adjud icate RxGRP:SG20 RxBIN:[id number] RxPCN: ID#:[id number]] Vitamin D2 50,000 unit capsule RxNorm: 367291 1 Capsule (s) PO Take 1 capsule by mouth twice weekly 12/02/2013 05/17/2014 Inactive Lipitor 80 mg tablet RxNorm: 228018 1 Tablet(s) PO QD 11/24/201305/25 Inactive [AttnRPh: Saving apply/adjudicate RxGRP: SG20 RxBIN:[id number] RxPCN: ID#:[id number]] loratadine 10 mg tablet RxNorm: 901566 1 Tablet(s) PO BID 11/17/2013 07/12/2014 Inactive fluoxetine 20 mg capsule RxNorm: 913111 1 Capsule(s) PO QAM TAKE ONE CAPSULE BY MOUTH ONCE DAILY IN THE MORNING. 11/04/2013 01/10/2015 Inactive Generic For:PROZAC 20MG Generic For:PROZAC 20MG 06/23/2013 11:55:55 AM [AttnRPh: Saving apply/adjudicate RxGRP:SG20 RxBIN:[id number] RxPCN: ID#:[id number]] Vytorin 10 mg-80 mg tablet RxNorm: 4180996 Tablet(s) PO TAKE ONE TABLET BY MOUTH ONCE DAILY IN THE EVENING. 09/30/2013 11/23/2013 Inactive Trilipix 135 mg capsule,delayed release RxNorm: 982384 1 Capsul e(s) PO QD 07/15/2013 04/21/2014 Inactive may do 90 day fill i f desired Voltaren 1 % topical gel RxNorm: 064501 TOP BID 07/15/2013 4 Inactive Apply to affected areas 2-3 times daily as needed. Wellbutrin XL 300 mg 24 hr tablet, extended release RxNorm: 568860 1 Tablet(s) PO QAM 06/29/2013 04/03/2017 Inactive fluoxetine 20 mg capsule RxNorm: 961008 1 Capsule(s) PO QAM TAKE ONE CAPSULE BY MOUTH ONCE DAILY IN THE MORNING. 06/29/2013 11/04/2013 Inactive Generic For:PROZAC 20MG Generic For:PROZAC 20MG 06/23/2013 11:55:55 AM fluoxetine 20 mg capsule RxNorm: 470522 Capsule(s) PO T ARY ONE CAPSULE BY MOUTH ONCE DAILY IN THE MORNING. 06/23/2013 06/28/2013 Inactive Gener ic For:PROZAC 20MG Generic For:PROZAC 20MG 06/23/2013 11:55:55 AM Synthroid 150 mcg tablet RxNorm: 188988 1 Tablet(s) PO QD brand onl y 06/08/2013 12/04/2013 Inactive Vytorin 10 mg-80 mg tablet RxNorm: 1834219 1 Tablet(s) PO QD 201209/05/2013 Inactive TAKE 1 TABLET BY MOUTH DAILY propranolol 60 mg tablet RxNorm: 367531 1 Tablet(s) PO QD 06/08/2013 12/04/2013 Inactive Pepcid 20 mg tablet RxNorm: 518680 Tablet(s) PO TAKE 1 TABLET BY MOUTH TWICE DAILY. 06/04/2013 11/23/2013 Inactive fluoxetine 20 mg capsule RxNorm: 712930 1 Capsule(s) PO QAM 013 06/22/2013 Inactive Wellbutrin XL 300 mg 24 hr tablet, extended release RxNorm: 602152 1 Tablet(s) PO QAM 05/26/2013 06/28/2013 Inactive Wellbutrin XL 150 mg 24 hr tablet, extended release RxNorm: 657159 1 Tablet(s) PO QD 05/15/2013 05/25/2013 Inactive Wellbutrin XL 150 mg 24 hr tablet, extended release RxNorm: 211709 1 Tablet(s) PO QD 05/15/2013 05/14/2013 Inactive Kombiglyze XR 5 mg-500 mg tablet,extended release RxNorm: 10 46213 1 Tablet(s) PO QD 05/07/2013 05/15/2013 Inactive cefdinir 300 mg capsule RxNorm: 903089 2 Capsule(s) PO QD 04/23/2013 05/02/2013 Inactive AttnRPh: Saving apply/adjudicate RxGRP:S G20 RxBIN:[id number] RxPCN: ID#:[id number] Pepcid 20 mg tablet RxNorm: 765649 Tablet(s) PO TAKE 1 TABLET BY MOUTH TWICE DAILY. 04/17/2013 06/13/2016 Inactive Pepcid 20 mg tablet RxNorm: 539626 1 Tablet(s) PO BID 04/06/201305/24 Inactive Vytorin 10-80 10 mg-80 mg tablet RxNorm: 559676 1 Tablet(s) PO QD 0 02/19/2013 06/08/2013 Inactive TAKE 1 TABLET BY MOUTH DAILY loratadine 10 mg tablet RxNorm: 149929 1 Tablet(s) PO BID 01/23/2013 07/21/2013 Inactive Synthroid 150 mcg tablet RxNorm: 427183 1 Tablet(s) PO QD brand onl y 12/02/2012 06/08/2013 Inactive propranolol 60 mg tablet RxNorm: 739502 1 Tablet(s) PO QD 12/02/2012 06/08/2013 Inactive Trilipix 135 mg capsule,delayed release RxNorm: 348720 1 Capsul e(s) PO QD 12/02/2012 05/30/2013 Inactive may do 90 day fill i f desired Pepcid 20 mg tablet RxNorm: 296985 1 Tablet(s) PO BID 11/27/201203/24 Inactive Effexor XR 150 mg capsule,extended release RxNorm: 918237 1 Cap kimi(s) PO QD 11/24/2012 05/14/2013 Inactive Vytorin 10-80 10 mg-80 mg tablet RxNorm: 152263 1 Tablet(s) PO QD 0 11/24/2012 2013 Inactive TAKE 1 TABLET BY MOUTH DAILY Vytorin 10-80 10 mg-80 mg tablet RxNorm: 566865 1 Tablet(s) PO QD 0 11/21/2012 11/24/2012 Inactive TAKE 1 TABLET BY MOUTH DAILY Effexor XR 150 mg capsule,extended release RxNorm: 494672 1 Cap kimi(s) PO QD 11/21/2012 11/24/2012 Inactive loratadine 10 mg tablet RxNorm: 7350031 1 Tablet(s) PO BID 11/12/19 13 01/23/2013 Inactive Vytorin 10-80 10 mg-80 mg tablet RxNorm: 460691 Tablet( s) PO TAKE 1 TABLET BY MOUTH ONCE DAILY. 10/15/2012 11/21/2012 Inactive Vytorin 10-80 10 mg-80 mg tablet RxNorm: 670515 1 Tablet(s) PO QD 0 10/15/2012 11/20/2012 Inactive TAKE 1 TABLET BY MOUTH DAILY Effexor XR 150 mg capsule,extended release RxNorm: 131786 1 Cap kimi(s) PO QD 10/15/2012 11/20/2012 Inactive Effexor XR 150 mg capsule,extended release RxNorm: 219877 Capsule(s) PO TAKE 1 CAPSULE BY MOUTH ONCE DAILY 10/15/2012 11/21/2012 Inactive azithromycin 250 mg tablet RxNorm: 700662 2 Tablet(s) PO QD 013 09/10/2012 Inactive Culturelle 10 billion cell capsule RxNorm: 376282 1 Cap kimi(s) PO BID for diarrhea maintenance 09/03/2012 10/02/2012 Inactive Medrol (Isaiah) 4 mg tablets in a dose pack RxNorm: 347699 Tablet(s) PO as directed 09/03/2012 07/11/2011 Active as directed Culturelle 10 billion cell capsule RxNorm: 122742 1 Capsule(s) PO BID 07/23/2012 08/21/2012 Inactive Vitamin D2 50,000 unit capsule RxNorm: 166082 Capsule(s ) PO TAKE 1 CAPSULE EVERY DAY SATURDAY THRU Saturday07/09/2012 08/20/2013 Inactive Vitamin D2 50,000 unit capsule RxNorm: 1147312 Capsule(s ) PO TAKE 1 CAPSULE EVERY DAY SATURDAY THRU Saturday07/07/2012 07/08/2012 Inactive Vitamin D2 50,000 unit capsule RxNorm: 6945846 Capsule(s ) PO TAKE 1 CAPSULE EVERY DAY SATURDAY THRU Saturday07/07/2012 07/06/2012 Inactive Vitamin D2 50,000 unit capsule RxNorm: 7585594 Capsule(s ) PO TAKE 1 CAPSULE EVERY DAY SATURDAY THRU Saturday06/27/2012 07/06/2012 Inactive Synthroid 150 mcg tablet RxNorm: 030486 1 Tablet(s) PO QD brand onl y 06/09/2012 12/02/2012 Inactive metformin 1,000 mg tablet RxNorm: 908604 1 Tablet(s) PO BID rep laces 500mg dose 05/20/2012 11/10/2012 Inactive propranolol 60 mg tablet RxNorm: 292671 1 Tablet(s) PO QD 04/23/2012 12/02/2012 Inactive Effexor XR 150 mg capsule,extended release RxNorm: 324913 1 Cap kimi(s) PO QD 04/04/2012 09/30/2012 Inactive Zyrtec 10 mg tablet RxNorm: 7665376 1 Tablet(s) PO QD 04/04/201203/24 Inactive Trilipix 135 mg capsule,delayed release RxNorm: 915985 1 Capsul e(s) PO QD 03/19/2012 12/02/2012 Inactive may do 90 day fill i f desired Vytorin 10-80 10 mg-80 mg tablet RxNorm: 911234 1 Tablet(s) PO QD 0 01/31/2012 07/28/2012 Inactive TAKE 1 TABLET BY MOUTH DAILY Voltaren 1 % topical gel RxNorm: 023826 TOP BID 01/25/2012 4 Inactive Apply to affected areas 2-3 times daily as needed. Synthroid 150 mcg tablet RxNorm: 291007 1 Tablet(s) PO QD brand onl y 01/02/2012 06/09/2012 Inactive metformin ER 1,000 mg 24 hr Tab Ctrl Rel RxNorm: 931678 1 Table t(s) PO QD 01/02/2012 05/19/2012 Inactive metformin ER 500 mg 24 hr Tab RxNorm: 557260 Tablet(s) PO 12/21/2011 01/01/2012 Inactive TAKE 1 TABLET BY MOUTH ONCE DAILY. Voltaren 1 % Topical Gel RxNorm: 661875 TOP BID 11/28/2011 2 Inactive Apply to affected areas 2-3 times daily as needed. propranolol 60 mg tablet RxNorm: 761862 1 Tablet(s) PO QD 10/17/2011 04/23/2012 Inactive Effexor XR 150 mg capsule,extended release RxNorm: 939329 1 Cap kimi(s) PO QD 09/13/2011 04/04/2012 Inactive Medrol (Isaiah) 4 mg tablets in a dose pack RxNorm: 201165 Tablet(s) PO as directed 09/04/2011 07/11/2011 Active as directed doxycycline hyclate 100 mg Tab RxNorm: 4554532 1 Tablet(s) PO BID 0 09/04/2011 09/13/2011 Inactive doxycycline monohydrate 100 mg Tab RxNorm: 7451776 1 Tablet(s) P O BID 07/25/2011 08/03/2011 Inactive prednisone 10 mg Tab RxNorm: 269398 1 Tablet(s) PO TID 07/25/201112/2011 Inactive Synthroid 150 mcg Tab RxNorm: 824769 1 Tablet(s) PO QD brand only 0 07/12/2011 01/02/2012 Inactive Vytorin 10-80 10 mg-80 mg Tab RxNorm: 469901 1 Tablet(s) PO QD 05/2601/31/2012 Inactive TAKE 1 TABLET BY MOUTH DAILY Vitamin D2 50,000 unit capsule RxNorm: 6200624 1 Capsule(s) PO Q D M-F 05/15/2011 06/26/2012 Inactive TAKE 1 CAPSULE BY MO [facility] DAILY SATURDAY THROUGH FRIDAYS Synthroid 150 mcg Tab RxNorm: 069386 1 Tablet(s) PO QD brand only 1 07/09/2010 07/11/2011 Inactive doxycycline monohydrate 100 mg Tab RxNorm: 2724445 1 Tablet(s) P O BID 04/25/2011 05/04/2011 Inactive Trilipix 135 mg capsule,delayed release RxNorm: 054964 1 Capsul e(s) PO QD 04/23/2011 03/19/2012 Inactive cefdinir 300 mg Cap RxNorm: 961898 1 Capsule(s) PO BID 04/04/2011 Inactive propranolol 60 mg Tab RxNorm: 873776 1 Tablet(s) PO QD 03/26/2011 Inactive Ultram 50 mg Tab RxNorm: 214076 1-2 Tablet(s) PO QID 03/22/201103/21 Active prn pain metformin ER 500 mg 24 hr Tab RxNorm: 768359 1 Tablet(s) PO QD 06/201006/21/2011 Inactive Synthroid 150 mcg Tab RxNorm: 216442 1 Tablet(s) PO QD 02/22/201112/2010 Inactive Vytorin 10-80 10 mg-80 mg Tab RxNorm: 604360 1 Tablet(s) PO QD 01/2303/13/2011 Inactive TAKE 1 TABLET BY MOUTH DAILY Trilipix 135 mg Cap RxNorm: 102365 1 Capsule(s) PO QD 01/10/201103/26 Inactive Effexor XR 150 mg 24 hr Cap RxNorm: 528580 1 Capsule(s) PO QD 01/0908/06/2011 Inactive Vitamin D 50,000 unit Cap RxNorm: 1200145 Capsule(s) PO 12/20/2010 Inactive TAKE 1 CAPSULE BY MOUTH DAILY SATURDAY THR Fridays Septra DS 800 mg-160 mg Tab RxNorm: 424237 1 Tablet(s) PO BID 12/0712/16/2010 Inactive mupirocin 2 % Ointment RxNorm: 727147 1 Application TOP BID Apply to affected area twice daily 12/07/2010 12/13/2010 Inactive Trilipix 135 mg Cap RxNorm: 601323 1 Capsule(s) PO QD 10/16/201003/26 Inactive Synthroid 150 mcg Tab RxNorm: 002348 1 Tablet(s) PO QD 10/09/201006/2010 Inactive metformin ER 500 mg 24 hr Tab RxNorm: 705000 1 Tablet(s) PO QD 09/2202/22/2011 Inactive Nexium 40 mg Cap RxNorm: 688336 1 Capsule(s) PO QD 10/05/2010 019 Inactive Vytorin 10-80 10 mg-80 mg Tab RxNorm: 007774 1 Tablet(s) PO QD 09/201002/12/2011 Inactive propranolol 60 mg Tab RxNorm: 649898 1 Tablet(s) PO QD 09/18/201008/2010 Inactive Synthroid 125 mcg Tab RxNorm: 458308 1 Tablet(s) PO QD 08/07/2010 Inactive Synthroid 125 mcg Tab RxNorm: 196348 1 Tablet(s) PO QD 08/07/2010 Inactive Voltaren 1 % Topical Gel RxNorm: 390923 TOP BID Apply t o affected areas 2-3 times daily as needed. 08/01/2010 11/28/2011 Inactive Voltaren 1 % Topical Gel RxNorm: 020179 TOP BID Apply t o affected areas 2-3 times daily as needed. 07/04/2010 07/31/2010 Inactive Advair Diskus 250 mcg-50 mcg/dose for Inhalation RxNorm: 135 9859 1 Puff(s) INH Q12H 07/04/2010 07/11/2011 Inactive Effexor XR 150 mg 24 hr Cap RxNorm: 326574 1 Capsule(s) PO QD 06/0801/03/2011 Inactive Synthroid 100 mcg Tab RxNorm: 262361 1 Tablet(s) PO QD 06/06/2010 Inactive Vitamin D 50,000 unit Cap RxNorm: 4661086 1 Capsule(s) PO QD M-F 05/15/2011 Inactive Synthroid 150 mcg Tab RxNorm: 289564 1 Tablet(s) PO 05/25/20102010 Inactive Vytorin 10-80 10 mg-80 mg Tab RxNorm: 530771 1 Tablet(s) PO QD 04/2509/25/2010 Inactive Trilipix 135 mg Cap RxNorm: 310679 1 Capsule(s) PO QD 04/17/201009/23 Inactive propranolol 60 mg Tab RxNorm: 812679 1 Tablet(s) PO QD 01/09/2010 Inactive Advair Diskus 250 mcg-50 mcg/dose for Inhalation RxNorm: 135 9859 1 Puff(s) INH Q12H 12/26/2009 07/04/2010 Inactive Advair Diskus 250 mcg-50 mcg/Dose for Inhalation RxNorm: 135 9859 1 Puff(s) INH Q12H 11/26/2009 12/25/2009 Inactive Synthroid 200 mcg Tab RxNorm: 567449 1 Tablet(s) PO QD 11/24/2009 Inactive Effexor XR 150 mg 24 hr Cap RxNorm: 446789 1 Capsule(s) PO QD 10/2705/24/2010 Inactive Lisinopril 10 mg Tab RxNorm: 345465 1 Tablet(s) PO QD 10/17/200909/23 Inactive Propranolol 60 mg Tab RxNorm: 389711 1 Tablet(s) PO QD 10/17/2009 Inactive Septra DS 160 mg-800 mg Tab RxNorm: 670683 1 Tablet(s) PO BID 10/0410/08/2009 Inactive Mupirocin 2 % Ointment RxNorm: 197328 TOP Q6-8H 10/04/2009 10/10/2009 Inactive Voltaren 1 % Topical Gel RxNorm: 149643 TOP BID Apply t o affected areas 2-3 times daily as needed. 09/21/2009 03/19/2010 Inactive Trilipix 135 mg Cap RxNorm: 777956 1 Capsule(s) PO QD 09/20/200902/23 Inactive Nexium 40 mg Cap RxNorm: 846026 1 Capsule(s) PO QD 09/19/2009 010 Inactive Tylenol Arthritis 650 mg Tab RxNorm: 4440361 2 Tablet(s) PO BID 09/21 Active Vitamin D3 5,000 unit tablet RxNorm: 651501 1 Tablet(s) PO QD 019 Active Synthroid 150 mcg tablet RxNorm: 641994 1 Tablet(s) PO QD 01/12/2015 01/11/2015 Inactive Synthroid 150 mcg tablet RxNorm: 184801 1 Tablet(s) PO Saturday and Saturday01/16/2018 01/15/2018 Inactive Vitamin D 2,000 unit Cap RxNorm: 1 Capsule(s) PO QD 01/30/201002/2010 Inactive Flexeril 5 mg tablet RxNorm: 639626 06/25 to 1 Tablet(s) PO TID as needed for muscle spasm 06/10/2017 06/09/2017 Inactive Medrol (Isaiah) 4 mg Tabs in a Dose Pack RxNorm: 569780 Tablet(s) PO 0 09/04/2011 07/11/2011 Inactive as directed fenofibrate micronized 134 mg capsule RxNorm: 131746 1 Capsule( s) PO QD 06/03/2017 06/02/2017 Inactive Vitamin D2 50,000 unit capsule RxNorm: 348650 Capsule(s ) PO Take 1 capsule by mouth twice weekly 12/02/2013 12/01/2013 Inactive prednisone 20 mg tablet RxNorm: 102681 1 Tablet(s) PO BID 03/30/2014 03/29/2014 Inactive AttnRPh: Saving apply/adjudicate RxGRP:S G20 RxBIN:[id number] RxPCN:HT ID#:[id number]: Saving apply/adjudicate RxGRP:SG20 RxBIN:[id number] RxPCN:HT ID#:[id number] Soma 350 mg tablet RxNorm: 457853 1 Tablet(s) PO TID prn spasm 01/2310/08/2010 Inactive Lancets,Ultra Thin RxNorm: Miscellaneous Use to test blood sugar daily and as needed (Dx: E11.65) 02/28/2018 02/27/2018 Inactive pantoprazole 40 mg tablet,delayed release RxNorm: 372424 1 Tabl et(s) PO QD 08/21/2017 08/20/2017 Inactive Janumet XR 100 mg-1,000 mg tablet,extended release RxNorm: 1 042380 2 Tablet(s) PO QD 01/06/2014 01/05/2014 Inactive Contour Meter RxNorm: miscellaneous 02/27/2018 02/26/2018 Inactive Synthroid 200 mcg Tab RxNorm: 604797 1 Tablet(s) PO QD 11/24/200907/2009 Inactive Kombiglyze XR 5 mg-500 mg tablet,extended release RxNorm: 10 61536 1 Tablet(s) PO QD 05/07/2013 05/06/2013 Inactive Zithromax Z-Isaiah 250 mg tablet RxNorm: 115539 Tablet(s) PO as di rected 05/14/2013 05/13/2013 Inactive AttnRPh: Saving appl y/adjudicate RxGRP:SG20 RxBIN:[id number] RxPCN: ID#:[id number] Fish Oil 1,000 mg capsule RxNorm: 3 Capsule(s) PO QD 04/04/2017 Inactive Lasix Oral RxNorm: Oral 03/30/2014 03/29/2014 Inactive loratadine 10 mg tablet RxNorm: 891561 1 Tablet(s) PO QD 08/20/2017 0 08/19/2017 Inactive Vitamin D 5,000 unit Tab RxNorm: 1 Tablet(s) PO twice a week 1 08/07/2009 06/05/2010 Inactive permethrin 5 % Topical Cream RxNorm: 803087 TOP Use as directed 02/03/2013 Inactive Gabapentin 100 mg Tab RxNorm: 873803 1 Tablet(s) PO BID 04/12/2010 Inactive Voltaren 1 % topical gel RxNorm: 240563 TOP as needed 06/23/201805/26 Inactive Gabapentin 300 mg Cap RxNorm: 590662 1 Capsule(s) PO BID 07/12/2011 0 07/11/2011 Inactive Contour Test Strips RxNorm: Miscellaneous Test blood sug ar daily (Dx: E11.65) 02/28/2018 02/27/2018 Inactive Promethazine 25 mg Tab RxNorm: 688950 1 Tablet(s) PO Q6 -8H As needed for nausea and vomiting. 10/09/2010 10/08/2010 Inactive propranolol 20 mg tablet RxNorm: 389679 1 Tablet(s) PO BID 03/17/20 18 03/16/2018 Inactive Vitamin D 50,000 unit Cap RxNorm: 1088168 Capsule(s) PO 2 weekly 06/05/2010 Inactive Synthroid 175 mcg Tab RxNorm: 681831 1 Tablet(s) PO QD 07/12/2011 Inactive triamcinolone acetonide 0.1 % Ointment RxNorm: 2948280 T OP TID apply three times a day (sparingly) as needed for itching 04/04/2017 04/03/2017 Inactive Ultram 50 mg Tab RxNorm: 501021 1-2 Tablet(s) PO QID prn pain 03/2203/22/2011 Inactive Topamax 100 mg Tab RxNorm: 384429 1 Tablet(s) PO BID 10/04/200910/03 Inactive Vitamin D3 1000 units Capsule RxNorm: 3 Capsule(s) PO QD 0 06/05/2010 Inactive Singulair 10 mg tablet RxNorm: 671818 1 Tablet(s) PO QD 06/23/2018 Inactive Medication [...] Code Result Date S ervice Location SARS-CoV2 [id number] SARS-CoV2 PCR Detected 07/08/2021 Unkno wn GFR CALC 9294409 GFR Afr Amr >60 mL/min 01/26/2019 Unknow n GFR CALC 8435275 GFR Non Afr Amr >60 mL/min 01/26/2019 Un known COMPLETE BLOOD COUNT 8740046 WBC 7.0 10e9/L 01/27/20 19 Unknown COMPLETE BLOOD COUNT 1305530 RBC 4.52 10e12/L 2018 Unknown COMPLETE BLOOD COUNT 1769679 HEMOGLOBIN 14.0 g/dL 01/27/20 19 Unknown COMPLETE BLOOD COUNT 4689064 HEMATOCRIT 42.6 % 01/27/20 19 Unknown COMPLETE BLOOD COUNT 9363270 MCV 94.2 fL 9 Unknown COMPLETE BLOOD COUNT 1238638 MCH 31.0 pg 9 Unknown COMPLETE BLOOD COUNT 4374069 MCHC 32.9 g/dL 9 Unknown COMPLETE BLOOD COUNT 4370507 PLATELET COUNT 272 10e9/L 10/2018 Unknown COMPLETE BLOOD COUNT 5048491 Mean Plt Volume 10.4 fL 10/2018 Unknown COMPLETE BLOOD COUNT 8765885 Neut Auto 53.9 % 9 Unknown COMPLETE BLOOD COUNT 3038184 Lymph Auto 33.8 % 01/27/20 19 Unknown COMPLETE BLOOD COUNT 8337816 [place] Auto 9.1 % 9 Unknown COMPLETE BLOOD COUNT 7973409 RDW 13.2 % 9 Unknown COMPLETE BLOOD COUNT 1932786 Eos Auto 2.3 % 9 Unknown COMPLETE BLOOD COUNT 3460006 Baso Auto 0.9 % 9 Unknown COMPLETE BLOOD COUNT 2661953 Neutrophil Abs 3.77 10e9/L Unknown COMPLETE BLOOD COUNT 9663909 Lymphocyte Abs 2.37 10e9/L Unknown COMPLETE BLOOD COUNT 2577226 Monocyte Abs 0.64 10e9/L 10/2018 Unknown COMPLETE BLOOD COUNT 5359559 Eosinophil Abs 0.16 10e9/L Unknown COMPLETE BLOOD COUNT 3984415 RDW-SD 44.2 fL 9 Unknown COMPLETE BLOOD COUNT 3953069 Basophil Abs 0.06 10e9/L 10/2018 Unknown COMPREHENSIVE METABOLIC 16953 AST 15 U/L 2018 Unknown COMPREHENSIVE METABOLIC 53480 ALT 18 U/L 2018 Unknown COMPREHENSIVE METABOLIC 66475 BUN 10 mg/dL 2018 Unknown COMPREHENSIVE METABOLIC 91925 ALBUMIN 4.1 g/dL 2018 Unknown COMPREHENSIVE METABOLIC 80872 CHLORIDE 100 mmol/L 01/26 Unknown COMPREHENSIVE METABOLIC 55557 Bili Total 0.4 mg/dL 01/26 Unknown COMPREHENSIVE METABOLIC 18998 ALK PHOS 57 U/L 2018 Unknown COMPREHENSIVE METABOLIC 84293 SODIUM 136 mmol/L 01/26 Unknown COMPREHENSIVE METABOLIC 10922 CREATININE 0.71 mg/dL 10/2018 Unknown COMPREHENSIVE METABOLIC 00315 CALCIUM 9.3 mg/dL 2018 Unknown COMPREHENSIVE METABOLIC 28121 POTASSIUM 4.4 mmol/L 01/26 Unknown COMPREHENSIVE METABOLIC 76273 Total Protein 6.7 g/dL Unknown COMPREHENSIVE METABOLIC 36806 Glucose 88 mg/dL 2018 Unknown COMPREHENSIVE METABOLIC 09529 Bicarbonate 27 mmol/L 10/2018 Unknown COMPREHENSIVE METABOLIC 93924 AGAP 9 mmol/L 2018 Unknown Procedures Procedure Codes Date RML URINE CULTURE/ COLONY COUNT CPT-4: 03263 06/29/19 23 THER/PROPH/DIAG INJ SC/IM CPT-4: 85111 04/18/2022 KETOROLAC TROMETHAMINE INJ CPT-4: J1885 04/18/2022 FLU 64 + VACC AIIV4 NO PRSRV 0.5ML IM CPT-4: 32342 ADMIN INFLUENZA VIRUS VAC CPT-4: G0008 04/05/2022 PPPS, subseq visit CPT-4: G0439 02/06/2022 DEXAMETHASONE SODIUM PHOS CPT-4: J1100 11/09/2021 THER/PROPH/DIAG INJ SC/IM CPT-4: 27647 11/09/2021 TRIAMCINOLONE ACET INJ NOS CPT-4: J3301 11/09/2021 CEFTRIAXONE SODIUM INJECTION CPT-4: J0696 10/30/2021 THER/PROPH/DIAG INJ SC/IM CPT-4: 75084 10/30/2021 INFLUENZA ASSAY W/OPTIC CPT-4: 29159 10/30/2021 THER/PROPH/DIAG INJ SC/IM CPT-4: 49854 09/05/2021 TRIAMCINOLONE ACET INJ NOS CPT-4: J3301 09/05/2021 INFLUENZA ASSAY W/OPTIC CPT-4: 12749 07/04/2021 SARS-CoV2 CPT-4: 2394512 07/04/2021 FLU VACC PRSV FREE INC ANTIG 65 AND OLDER CPT-4: 17244 03/29/2021 FLU VACC PRSV FREE INC ANTIG 65 AND OLDER CPT-4: 59372 03/29/2021 ADMIN INFLUENZA VIRUS VAC CPT-4: G0008 03/29/2021 DRAINAGE OF SKIN ABSCESS CPT-4: 21524 02/08/2021 PPPS, subseq visit CPT-4: G0439 01/03/2021 OCCULT BLOOD FECES CPT-4: 23025 07/13/2020 RML URINE CULTURE/ COLONY COUNT CPT-4: 24759 05/17/20 URINALYSIS NONAUTO W/O SCOPE CPT-4: 45285 05/17/2020 CEFTRIAXONE SODIUM INJECTION CPT-4: J0696 03/07/2020 THER/PROPH/DIAG INJ SC/IM CPT-4: 53861 03/07/2020 THER/PROPH/DIAG INJ SC/IM CPT-4: 94149 03/07/2020 METHYLPREDNISOLONE INJECTION CPT-4: J2930 03/07/2020 PPPS, subseq visit CPT-4: G0439 12/21/2019 RML URINE CULTURE/ COLONY COUNT CPT-4: 53822 09/11/19 CEFTRIAXONE SODIUM INJECTION CPT-4: J0696 09/08/2019 THER/PROPH/DIAG INJ SC/IM CPT-4: 26454 09/08/2019 THER/PROPH/DIAG INJ SC/IM CPT-4: 49847 09/07/2019 CEFTRIAXONE SODIUM INJECTION CPT-4: J0696 09/07/2019 THER/PROPH/DIAG INJ SC/IM CPT-4: 69860 09/07/2019 URINALYSIS NONAUTO W/O SCOPE CPT-4: 60916 09/02/2019 RML URINE CULTURE/ COLONY COUNT CPT-4: 84543 09/02/19 FLU VACC PRSV FREE INC ANTIG 65 AND OLDER CPT-4: 05535 04/15/2019 URINALYSIS NONAUTO W/O SCOPE CPT-4: 69225 04/15/2019 RML URINE CULTURE/ COLONY COUNT CPT-4: 42500 04/15/20 ADMIN INFLUENZA VIRUS VAC CPT-4: G0008 04/15/2019 FLU VACC PRSV FREE INC ANTIG 65 AND OLDER CPT-4: 86901 04/15/2019 THER/PROPH/DIAG INJ SC/IM CPT-4: 92296 04/07/2019 TRIAMCINOLONE ACET INJ NOS CPT-4: J3301 04/07/2019 DEXAMETHASONE SODIUM PHOS CPT-4: J1100 04/07/2019 URINALYSIS NONAUTO W/O SCOPE CPT-4: 57024 03/18/2019 RML URINE CULTURE/ COLONY COUNT CPT-4: 22336 03/18/20 19 ROUTINE VENIPUNCTURE CPT-4: 66525 01/26/2019 RML COMPREHEN METABOLIC PANEL CPT-4: 83774 01/26/2019 RML COMPLETE CBC W/AUTO DIFF WBC CPT-4: 81775 019 RML URINE CULTURE/ COLONY COUNT CPT-4: 46270 01/27/20 19 URINALYSIS NONAUTO W/O SCOPE CPT-4: 31100 01/26/2019 THER/PROPH/DIAG INJ SC/IM CPT-4: 17723 01/08/2019 TRIAMCINOLONE ACET INJ NOS CPT-4: J3301 01/08/2019 THER/PROPH/DIAG INJ SC/IM CPT-4: 03105 01/06/2019 METHYLPREDNISOLONE INJECTION CPT-4: J2930 01/06/2019 AIRWAY INHALATION TREATMENT CPT-4: 59058 01/06/2019 RML URINE CULTURE/ COLONY COUNT CPT-4: 72384 01/07/20 19 PPPS, subseq visit CPT-4: G0439 12/11/2018 URINALYSIS NONAUTO W/O SCOPE CPT-4: 15805 12/11/2018 RML URINE CULTURE/ COLONY COUNT CPT-4: 37256 12/12/19 19 CULTURE OTHR SPECIMN AEROBIC CPT-4: 88614 12/11/2018 OCCULT BLOOD FECES CPT-4: 88733 12/11/2018 THER/PROPH/DIAG INJ SC/IM CPT-4: 93055 10/07/2018 TRIAMCINOLONE ACET INJ NOS CPT-4: J3301 10/07/2018 DEXAMETHASONE SODIUM PHOS CPT-4: J1100 10/07/2018 THER/PROPH/DIAG INJ SC/IM CPT-4: 62128 10/16/2017 TRIAMCINOLONE ACET INJ NOS CPT-4: J3301 10/16/2017 THER/PROPH/DIAG INJ SC/IM CPT-4: 29955 10/16/2017 KETOROLAC TROMETHAMINE INJ CPT-4: J1885 10/16/2017 INFLUENZA ASSAY W/OPTIC CPT-4: 65932 07/25/2017 FLU VACC PRSV FREE INC ANTIG 65 AND OLDER CPT-4: 92021 04/04/2017 PNEUMOCOCCAL VACC 23 DANAY IM CPT-4: 27958 04/04/2017 PPPS, subseq visit CPT-4: G0439 04/04/2017 ADMIN INFLUENZA VIRUS VAC CPT-4: G0008 04/04/2017 ADMIN PNEUMOCOCCAL VACCINE CPT-4: G0009 04/04/2017 URINALYSIS NONAUTO W/O SCOPE CPT-4: 83215 06/05/2016 FLU VACC PRSV FREE INC ANTIG 65 AND OLDER CPT-4: 92823 05/01/2016 ADMIN INFLUENZA VIRUS VAC CPT-4: G0008 05/01/2016 URINALYSIS NONAUTO W/O SCOPE CPT-4: 68238 11/08/2015 URINALYSIS NONAUTO W/O SCOPE CPT-4: 21792 03/28/2015 ADMIN INFLUENZA VIRUS VAC CPT-4: G0008 03/28/2015 FLU VACC PRSV FREE INC ANTIG 65 AND OLDER CPT-4: 65697 03/28/2015 PRESCRIP TRANSMIT VIA ERX SY CPT-4: G8553 03/28/2015 PNEUMOCOCCAL VACC 13 DANAY IM CPT-4: 62964 02/08/2015 ADMIN PNEUMOCOCCAL VACCINE CPT-4: G0009 02/08/2015 PRESCRIP TRANSMIT VIA ERX SY CPT-4: G8553 02/08/2015 RML URINE CULTURE/ COLONY COUNT CPT-4: 82605 01/12/20 15 URINALYSIS NONAUTO W/O SCOPE CPT-4: 22167 01/11/2015 PRESCRIP TRANSMIT VIA ERX SY CPT-4: G8553 01/11/2015 PRESCRIP TRANSMIT VIA ERX SY CPT-4: G8553 11/24/2014 URINALYSIS NONAUTO W/O SCOPE CPT-4: 28627 10/27/2014 RML URINE CULTURE/ COLONY COUNT CPT-4: 32344 10/28/19 15 PRESCRIP TRANSMIT VIA ERX SY CPT-4: G8553 10/27/2014 CEFTRIAXONE SODIUM INJECTION CPT-4: J0696 09/23/2014 THER/PROPH/DIAG INJ SC/IM CPT-4: 04975 09/23/2014 URINALYSIS NONAUTO W/O SCOPE CPT-4: 06209 09/23/2014 RML URINE CULTURE/ COLONY COUNT CPT-4: 42879 09/24/19 15 PRESCRIP TRANSMIT VIA ERX SY CPT-4: G8553 09/23/2014 URINALYSIS NONAUTO W/O SCOPE CPT-4: 37990 03/30/2014 RML URINE CULTURE/ COLONY COUNT CPT-4: 72286 03/30/20 14 PRESCRIP TRANSMIT VIA ERX SY CPT-4: G8553 03/30/2014 PRESCRIP TRANSMIT VIA ERX SY CPT-4: G8553 11/24/2013 PRESCRIP TRANSMIT VIA ERX SY CPT-4: G8553 06/29/2013 PRESCRIP TRANSMIT VIA ERX SY CPT-4: G8553 05/26/2013 PRESCRIP TRANSMIT VIA ERX SY CPT-4: G8553 04/23/2013 THER/PROPH/DIAG INJ SC/IM CPT-4: 09246 03/05/2013 KETOROLAC TROMETHAMINE INJ CPT-4: J1885 03/05/2013 PRESCRIP TRANSMIT VIA ERX SY CPT-4: G8553 11/27/2012 PRESCRIP TRANSMIT VIA ERX SY CPT-4: G8553 11/11/2012 PRESCRIP TRANSMIT VIA ERX SY CPT-4: G8553 09/03/2012 PRESCRIP TRANSMIT VIA ERX SY CPT-4: G8553 07/23/2012 PRESCRIP TRANSMIT VIA ERX SY CPT-4: G8553 05/20/2012 PRESCRIP TRANSMIT VIA ERX SY CPT-4: G8553 04/04/2012 DESTRUCT PREMALG LESION (Cryosurgery) CPT-4: 43887 PRESCRIP TRANSMIT VIA ERX SY CPT-4: G8553 01/02/2012 PRESCRIP TRANSMIT VIA ERX SY CPT-4: G8553 09/04/2011 URINALYSIS NONAUTO W/O SCOPE CPT-4: 30874 07/31/2011 PRESCRIP TRANSMIT VIA ERX SY CPT-4: G8553 07/12/2011 PRESCRIP TRANSMIT VIA ERX SY CPT-4: G8553 05/09/2011 THER/PROPH/DIAG INJ SC/IM CPT-4: 32974 05/02/2011 KETOROLAC TROMETHAMINE INJ CPT-4: J1885 05/02/2011 PRESCRIP TRANSMIT VIA ERX SY CPT-4: G8553 04/25/2011 CUR TOBACCO NON-USER CPT-4: G8457 04/04/2011 PRESCRIP TRANSMIT VIA ERX SY CPT-4: G8553 04/04/2011 DRAIN/INJECT JOINT/BURSA CPT-4: 40100 03/01/2011 METHYLPREDNISOLONE 40 MG INJ CPT-4: J1030 03/01/2011 TRIAMCINOLONE ACET INJ NOS CPT-4: J3301 03/01/2011 DRAIN/INJECT JOINT/BURSA CPT-4: 76273 01/04/2011 METHYLPREDNISOLONE 40 MG INJ CPT-4: J1030 01/04/2011 TRIAMCINOLONE ACET INJ NOS CPT-4: J3301 01/04/2011 PRESCRIP TRANSMIT VIA ERX SY CPT-4: G8553 12/07/2010 PRESCRIP TRANSMIT VIA ERX SY CPT-4: G8553 10/09/2010 PRESCRIP TRANSMIT VIA ERX SY CPT-4: G8553 06/06/2010 DRAIN/INJECT JOINT/BURSA CPT-4: 29950 04/12/2010 TRIAMCINOLONE ACET INJ NOS CPT-4: J3301 04/12/2010 METHYLPREDNISOLONE 80 MG INJ CPT-4: J1040 04/12/2010 PRESCRIP TRANSMIT VIA ERX SY CPT-4: G8553 03/20/2010 THER/PROPH/DIAG INJ SC/IM CPT-4: 69203 01/30/2010 KETOROLAC TROMETHAMINE INJ CPT-4: J1885 01/30/2010 PRESCRIP TRANSMIT VIA ERX SY CPT-4: G8553 01/30/2010 DRAIN/INJECT JOINT/BURSA CPT-4: 90849 10/26/2009 TRIAMCINOLONE ACET INJ NOS CPT-4: J3301 10/26/2009 METHYLPREDNISOLONE 80 MG INJ CPT-4: J1040 10/26/2009 DRAINAGE OF SKIN ABSCESS CPT-4: 00872 10/04/2009 Vital Signs Date Vital 08/07/2022 Blood Pressure 1: 126/74 Code: 8480-6 Heart Rate 1: 73 bpm Respiratory Rate: 20 bpm SpO2: 97% Temperature: 36.2 (C) / 97.1 (F) We ight: 222 lbs Code: 89701-5 06/29/2022 Blood Pressure 1: 132/73 Code: 8480-6 BMI: 36.7 Code: 57181-3 Heart Rate 1: 74 bpm Height: 5'6" Code: 8302-2 SpO2: 96% Temperature: 3 6.4 (C) / 97.6 (F) Weight: 226 lbs Code: 63418-9 05/28/2022 Blood Pressure 1: 129/78 Code: 8480-6 BMI: 37.7 Code: 36725-8 Heart Rate 1: 72 bpm Height: 5'6" Code: 8302-2 SpO2: 95% Temperature: 3 6.2 (C) / 97.1 (F) Weight: 232 lbs Code: 98411-2 05/10/2022 Blood Pressure 1: 133/75 Code: 8480-6 BMI: 38.3 Code: 40070-5 Heart Rate 1: 68 bpm Height: 5'6" Code: 8302-2 SpO2: 98% Temperature: 3 6.2 (C) / 97.1 (F) Weight: 236 lbs Code: 13047-7 04/18/2022 Blood Pressure 1: 118/70 Code: 8480-6 Heart Rate 1: 86 bpm Respiratory Rate: 20 bpm SpO2: 96% Temperature: 36.6 (C) / 97.8 (F) We ight: 238 lbs Code: 76326-0 02/15/2022 Blood Pressure 1: 120/82 Code: 8480-6 Heart Rate 1: 88 bpm Respiratory Rate: 20 bpm SpO2: 98% Temperature: 36.1 (C) / 97.0 (F) We ight: 237 lbs Code: 78853-8 02/06/2022 Blood Pressure 1: 124/80 Code: 8480-6 BMI: 39.4 Code: 55796-9 Heart Rate 1: 76 bpm Height: 5'6" Code: 8302-2 Respiratory Rate: 20 bpm SpO2: 98% Temperature: 36.6 (C) / 97.9 (F) Weight: 242 lbs Code: 51283-8 02/01/2022 Blood Pressure 1: 144/100 Code: 8480-6 Heart Rat e 1: 108 bpm Respiratory Rate: 22 bpm SpO2: 96% Temperature: 36.4 (C) / 97.5 (F) 11/29/2021 Blood Pressure 1: 128/80 Code: 8480-6 Heart Rate 1: 56 bpm Respiratory Rate: 20 bpm SpO2: 97% Temperature: 36.7 (C) / 98.1 (F) We ight: 242 lbs Code: 49421-4 11/22/2021 Blood Pressure 1: 118/80 Code: 8480-6 Heart Rate 1: 84 bpm Respiratory Rate: 20 bpm SpO2: 99% Temperature: 36.3 (C) / 97.4 (F) 11/21/2021 Blood Pressure 1: 132/80 Code: 8480-6 Heart Rate 1: 98 bpm Respiratory Rate: 20 bpm SpO2: 99% Weight: 238 lbs Code: 05404 -7 11/09/2021 Blood Pressure 1: 136/86 Code: 8480-6 Heart Rate 1: 68 bpm Respiratory Rate: 20 bpm SpO2: 95% Temperature: 36.4 (C) / 97.5 (F) We ight: 244 lbs Code: 54340-8 10/31/2021 Blood Pressure 1: 128/80 Code: 8480-6 Heart Rate 1: 80 bpm Respiratory Rate: 28 bpm SpO2: 93% Temperature: 38.0 (C) / 100. 4 (F) 10/30/2021 Blood Pressure 1: 136/82 Code: 8480-6 Heart Rate 1: 120 bpm Respiratory Rate: 24 bpm SpO2: 95% Temperature: 38.0 (C) / 100. 4 (F) 09/05/2021 Blood Pressure 1: 118/84 Code: 8480-6 BMI: 38.5 Code: 00305-2 Heart Rate 1: 72 bpm Height: 5'7" Code: 8302-2 Respiratory Rate: 20 bpm SpO2: 95% Temperature: 36.3 (C) / 97.4 (F) Weight: 246 lbs Code: 12260-5 08/24/2021 Blood Pressure 1: 132/84 Code: 8480-6 Heart Rate 1: 76 bpm Respiratory Rate: 19 bpm SpO2: 98% Temperature: 36.7 (C) / 98.1 (F) We ight: Code: 08612-5 03/01/2021 Blood Pressure 1: 90/52 Code: 8480-6 Heart Rate 1: 66 bpm Respiratory Rate: 22 bpm SpO2: 97% 02/08/2021 Blood Pressure 1: 132/75 Code: 8480-6 Heart Rate 1: 74 bpm Respiratory Rate: 18 bpm SpO2: 98% Temperature: 36.3 (C) / 97.3 (F) We ight: 247 lbs Code: 00238-8 01/19/2021 Blood Pressure 1: 126/76 Code: 8480-6 Heart Rate 1: 76 bpm Respiratory Rate: 20 bpm SpO2: 98% Temperature: 37.1 (C) / 98.8 (F) We ight: 244 lbs Code: 32531-9 01/03/2021 Blood Pressure 1: 124/64 Code: 8480-6 BMI: 38.5 Code: 67320-4 Heart Rate 1: 76 bpm Height: 5'7" Code: 8302-2 Respiratory Rate: 20 bpm SpO2: 96% Temperature: 36.4 (C) / 97.6 (F) Weight: 246 lbs Code: 19866-4 11/29/2020 Blood Pressure 1: 119/68 Code: 8480-6 Heart Rate 1: 73 bpm Respiratory Rate: 20 bpm SpO2: 95% Temperature: 36.1 (C) / 96.9 (F) We ight: 245 lbs Code: 49794-7 09/29/2020 Blood Pressure 1: 136/79 Code: 8480-6 Heart Rate 1: 67 bpm Respiratory Rate: 15 bpm SpO2: 98% Temperature: 36.2 (C) / 97.1 (F) We ight: 237 lbs Code: 47913-6 09/19/2020 Blood Pressure 1: 135/82 Code: 8480-6 Heart Rate 1: 76 bpm Respiratory Rate: 17 bpm SpO2: 96% Temperature: 36.6 (C) / 97.8 (F) We ight: 238 lbs Code: 67661-4 08/10/2020 Blood Pressure 1: 126/82 Code: 8480-6 Heart Rate 1: 60 bpm Respiratory Rate: 20 bpm SpO2: 96% Temperature: 36.3 (C) / 97.3 (F) We ight: 238 lbs Code: 66059-6 08/01/2020 Temperature: 36.6 (C) / 97.8 (F) 07/13/2020 Blood Pressure 1: 132/80 Code: 8480-6 Heart Rate 1: 76 bpm Respiratory Rate: 20 bpm SpO2: 97% Temperature: 36.2 (C) / 97.2 (F) We ight: 228 lbs Code: 47233-2 07/05/2020 Temperature: 35.9 (C) / 96.7 (F) 06/22/2020 Blood Pressure 1: 134/82 Code: 8480-6 Heart Rate 1: 60 bpm Respiratory Rate: 20 bpm SpO2: 96% Temperature: 36.4 (C) / 97.6 (F) We ight: 235 lbs Code: 42196-3 05/17/2020 Blood Pressure 1: 141/72 Code: 8480-6 Heart Rate 1: 78 bpm Respiratory Rate: 16 bpm SpO2: 98% Temperature: 36.3 (C) / 97.3 (F) We ight: 232 lbs Code: 90727-9 03/14/2020 Blood Pressure 1: 126/92 Code: 8480-6 Heart Rate 1: 72 bpm Respiratory Rate: 22 bpm SpO2: 96% Temperature: 36.3 (C) / 97.4 (F) We ight: 225 lbs Code: 25484-5 03/07/2020 Blood Pressure 1: 124/86 Code: 8480-6 Heart Rate 1: 72 bpm Respiratory Rate: 24 bpm SpO2: 93% Temperature: 36.2 (C) / 97.1 (F) We ight: 227 lbs Code: 37624-9 12/21/2019 Blood Pressure 1: 114/72 Code: 8480-6 BMI: 36.2 Code: 31088-4 Heart Rate 1: 60 bpm Height: 5'7" Code: 8302-2 Respiratory Rate: 20 bpm SpO2: 97% Temperature: 36.7 (C) / 98.1 (F) Weight: 231 lbs Code: 09376-6 09/02/2019 Blood Pressure 1: 138/85 Code: 8480-6 Heart Rate 1: 76 bpm Respiratory Rate: 20 bpm SpO2: 96% Temperature: 36.3 (C) / 97.3 (F) We ight: 226 lbs Code: 10790-9 07/09/2019 Blood Pressure 1: 123/63 Code: 8480-6 BMI: 34.9 Code: 90176-6 Heart Rate 1: 64 bpm Height: 5'7" Code: 8302-2 Respiratory Rate: 17 bpm SpO2: 97% Temperature: 37.0 (C) / 98.6 (F) Weight: 223 lbs Code: 58943-8 04/15/2019 Blood Pressure 1: 110/82 Code: 8480-6 Heart Rate 1: 66 bpm SpO2: 98% Temperature: 36.1 (C) / 96.9 (F) Weight: 223 lbs Code: 53139-2 04/07/2019 Blood Pressure 1: 132/80 Code: 8480-6 Heart Rate 1: 68 bpm Temperature: 36.9 (C) / 98.4 (F) Weight: 222 lbs Code: 14110-5 03/25/2019 Blood Pressure 1: 108/70 Code: 8480-6 Heart Rate 1: 64 bpm Respiratory Rate: 20 bpm SpO2: 96% Temperature: 36.2 (C) / 97.2 (F) We ight: 221 lbs Code: 58086-4 03/18/2019 Blood Pressure 1: 138/82 Code: 8480-6 Heart Rate 1: 74 bpm SpO2: 99% Temperature: 36.1 (C) / 96.9 (F) Weight: 223 lbs Code: 06344-6 01/26/2019 Blood Pressure 1: 138/90 Code: 8480-6 Heart Rate 1: 68 bpm SpO2: 96% Temperature: 35.9 (C) / 96.7 (F) Weight: 227 lbs Code: 14251-7 01/08/2019 Blood Pressure 1: 134/78 Code: 8480-6 BMI: 36.8 Code: 86096-8 Heart Rate 1: 76 bpm Height: 5'7" Code: 8302-2 SpO2: 93% Temperature: 3 6.4 (C) / 97.6 (F) Weight: 235 lbs Code: 71365-5 01/06/2019 Blood Pressure 1: 116/80 Code: 8480-6 Heart Rate 1: 72 bpm Respiratory Rate: 20 bpm SpO2: 98% Temperature: 36.5 (C) / 97.7 (F) We ight: 232 lbs Code: 48523-7 12/11/2018 Blood Pressure 1: 120/82 Code: 8480-6 BMI: 36.2 Code: 91288-5 Heart Rate 1: 67 bpm Height: 5'7" Code: 8302-2 Respiratory Rate: 18 bpm SpO2: 96% Temperature: 35.9 (C) / 96.7 (F) Weight: 231 lbs Code: 76766-6 10/30/2018 Blood Pressure 1: 126/82 Code: 8480-6 Heart Rate 1: 80 bpm Respiratory Rate: 20 bpm SpO2: 96% Temperature: 36.8 (C) / 98.3 (F) We ight: 228 lbs Code: 55093-6 10/07/2018 Blood Pressure 1: 130/90 Code: 8480-6 Heart Rate 1: 76 bpm Respiratory Rate: 24 bpm SpO2: 97% Temperature: 36.0 (C) / 96.8 (F) We ight: 229 lbs Code: 43954-0 06/23/2018 Blood Pressure 1: 132/80 Code: 8480-6 Heart Rate 1: 72 bpm Respiratory Rate: 20 bpm SpO2: 98% Temperature: 36.7 (C) / 98.0 (F) We ight: 233 lbs Code: 60617-0 01/16/2018 Blood Pressure 1: 116/82 Code: 8480-6 Heart Rate 1: 72 bpm Respiratory Rate: 20 bpm SpO2: 96% Temperature: 36.9 (C) / 98.5 (F) We ight: 230 lbs Code: 91884-4 10/16/2017 Blood Pressure 1: 116/74 Code: 8480-6 BMI: 35.1 Code: 21350-5 Heart Rate 1: 76 bpm Height: 5'7" Code: 8302-2 Respiratory Rate: 20 bpm SpO2: 98% Temperature: 36.7 (C) / 98.1 (F) Weight: 224 lbs Code: 95786-8 09/12/2017 Blood Pressure 1: 124/78 Code: 8480-6 BMI: 34.6 Code: 97367-4 Heart Rate 1: 84 bpm Height: 5'7" Code: 8302-2 Respiratory Rate: 20 bpm SpO2: 95% Temperature: 36.6 (C) / 97.8 (F) Weight: 221 lbs Code: 57767-6 08/20/2017 Blood Pressure 1: 126/78 Code: 8480-6 Heart Rate 1: 92 bpm Height: 5'7" Code: 8302-2 Respiratory Rate: 20 bpm SpO2: 96% Temperature: 36 .9 (C) / 98.5 (F) 08/13/2017 Blood Pressure 1: 124/80 Code: 8480-6 BMI: 34.8 Code: 88436-0 Heart Rate 1: 80 bpm Height: 5'7" Code: 8302-2 Respiratory Rate: 20 bpm SpO2: 96% Temperature: 36.7 (C) / 98.0 (F) Weight: 222 lbs Code: 70306-7 07/29/2017 Blood Pressure 1: 114/70 Code: 8480-6 BMI: 34.5 Code: 98227-9 Heart Rate 1: 76 bpm Height: 5'7" Code: 8302-2 Respiratory Rate: 20 bpm SpO2: 97% Temperature: 36.9 (C) / 98.4 (F) Weight: 220 lbs Code: 52675-0 07/25/2017 Blood Pressure 1: 142/76 Code: 8480-6 BMI: 34.9 Code: 00771-6 Heart Rate 1: 92 bpm Height: 5'7" Code: 8302-2 Respiratory Rate: 18 bpm SpO2: 96% Temperature: 36.7 (C) / 98.1 (F) Weight: 223 lbs Code: 60065-0 06/10/2017 Blood Pressure 1: 136/82 Code: 8480-6 BMI: 34.3 Code: 10295-2 Heart Rate 1: 68 bpm Height: 5'7" Code: 8302-2 Respiratory Rate: 20 bpm SpO2: 96% Temperature: 36.7 (C) / 98.0 (F) Weight: 219 lbs Code: 45048-0 05/28/2017 Blood Pressure 1: 136/70 Code: 8480-6 BMI: 34.1 Code: 09805-9 Heart Rate 1: 84 bpm Height: 5'7" Code: 8302-2 Respiratory Rate: 20 bpm SpO2: 95% Temperature: 35.9 (C) / 96.6 (F) Weight: 218 lbs Code: 88038-9 04/04/2017 Blood Pressure 1: 122/78 Code: 8480-6 BMI: 33.4 Code: 22539-8 Heart Rate 1: 68 bpm Height: 5'7" Code: 8302-2 Respiratory Rate: 20 bpm SpO2: 96% Temperature: 36.7 (C) / 98.0 (F) Weight: 213 lbs Code: 97936-8 11/28/2016 Blood Pressure 1: 114/82 Code: 8480-6 BMI: 33.7 Code: 08446-0 Heart Rate 1: 72 bpm Height: 5'7" Code: 8302-2 Respiratory Rate: 20 bpm SpO2: 98% Temperature: 36.4 (C) / 97.6 (F) Weight: 215 lbs Code: 86234-2 06/05/2016 Blood Pressure 1: 104/68 Code: 8480-6 BMI: 33.7 Code: 04162-5 Heart Rate 1: 68 bpm Height: 5'7" Code: 8302-2 Respiratory Rate: 20 bpm SpO2: 96% Temperature: 36.8 (C) / 98.2 (F) Weight: 215 lbs Code: 36444-3 11/08/2015 Blood Pressure 1: 122/70 Code: 8480-6 BMI: 33.8 Code: 28363-5 Heart Rate 1: 80 bpm Height: 5'7" Code: 8302-2 Respiratory Rate: 20 bpm Temperatu re: 36.8 (C) / 98.2 (F) Weight: 216 lbs Code: 17241-5 07/19/2015 Blood Pressure 1: 122/70 Code: 8480-6 BMI: 33.0 Code: 57009-2 Heart Rate 1: 80 bpm Height: 5'7" Code: 8302-2 Respiratory Rate: 18 bpm Temperatu re: 35.9 (C) / 96.6 (F) Weight: 211 lbs Code: 94020-9 03/28/2015 Blood Pressure 1: 124/70 Code: 8480-6 BMI: 31.8 Code: 09534-5 Heart Rate 1: 72 bpm Height: 5'7" Code: 8302-2 Respiratory Rate: 20 bpm Temperatu re: 36.8 (C) / 98.2 (F) Weight: 203 lbs Code: 41053-8 02/08/2015 Blood Pressure 1: 98/58 Code: 8480-6 BMI: 32.1 C ode: 56657-1 Heart Rate 1: 84 bpm Height: 5'7" Code: 8302-2 Respiratory Rate: 20 bpm Temperatu re: 36.7 (C) / 98.0 (F) Weight: 205 lbs Code: 92266-6 01/11/2015 Blood Pressure 1: 118/78 Code: 8480-6 BMI: 32.1 Code: 11560-2 Heart Rate 1: 84 bpm Height: 5'7" Code: 8302-2 Respiratory Rate: 20 bpm Temperatu re: 36.6 (C) / 97.9 (F) Weight: 205 lbs Code: 08414-4 11/24/2014 Blood Pressure 1: 124/80 Code: 8480-6 BMI: 32.0 Code: 58011-0 Heart Rate 1: 76 bpm Height: 5'7" Code: 8302-2 Respiratory Rate: 20 bpm Temperatu re: 36.2 (C) / 97.1 (F) Weight: 204 lbs Code: 66883-5 11/19/2014 Blood Pressure 1: 132/78 Code: 8480-6 BMI: 32.7 Code: 58913-9 Heart Rate 1: 68 bpm Height: 5'7" Code: 8302-2 Respiratory Rate: 20 bpm SpO2: 98% Temperature: 36.7 (C) / 98.0 (F) Weight: 209 lbs Code: 80422-5 10/27/2014 Blood Pressure 1: 118/76 Code: 8480-6 BMI: 32.6 Code: 52285-1 Heart Rate 1: 64 bpm Height: 5'7" Code: 8302-2 Respiratory Rate: 20 bpm Temperatu re: 36.7 (C) / 98.0 (F) Weight: 208 lbs Code: 91867-5 09/23/2014 Blood Pressure 1: 118/68 Code: 8480-6 BMI: 34.3 Code: 04686-2 Heart Rate 1: 78 bpm Height: 5'7" Code: 8302-2 Respiratory Rate: 22 bpm Temperatu re: 36.4 (C) / 97.6 (F) Weight: 219 lbs Code: 70546-1 07/28/2014 Blood Pressure 1: 126/80 Code: 8480-6 BMI: 33.5 Code: 50783-9 Heart Rate 1: 76 bpm Height: 5'7" Code: 8302-2 Respiratory Rate: 20 bpm Temperatu re: 36.4 (C) / 97.6 (F) Weight: 214 lbs Code: 47884-9 03/30/2014 Blood Pressure 1: 128/80 Code: 8480-6 BMI: 35.2 Code: 80996-8 Heart Rate 1: 88 bpm Height: 5'7" Code: 8302-2 Respiratory Rate: 20 bpm Temperatu re: 36.4 (C) / 97.6 (F) Weight: 225 lbs Code: 87388-5 11/24/2013 Blood Pressure 1: 124/82 Code: 8480-6 BMI: 35.6 Code: 25022-4 Heart Rate 1: 80 bpm Height: 5'7" Code: 8302-2 Respiratory Rate: 22 bpm Temperatu re: 36.2 (C) / 97.1 (F) Weight: 227 lbs Code: 13463-5 08/25/2013 Blood Pressure 1: 128/80 Code: 8480-6 BMI: 37.4 Code: 76266-7 Heart Rate 1: 76 bpm Height: 5'7" Code: 8302-2 Respiratory Rate: 20 bpm Temperatu re: 36.6 (C) / 97.9 (F) Weight: 239 lbs Code: 23790-4 06/29/2013 Blood Pressure 1: 106/78 Code: 8480-6 BMI: 38.1 Code: 22110-9 Heart Rate 1: 80 bpm Height: 5'7" Code: 8302-2 Respiratory Rate: 20 bpm Temperatu re: 36.6 (C) / 97.9 (F) Weight: 243 lbs Code: 96198-8 05/26/2013 Blood Pressure 1: 122/80 Code: 8480-6 BMI: 39.3 Code: 33992-3 Heart Rate 1: 80 bpm Height: 5'7" Code: 8302-2 Respiratory Rate: 20 bpm Temperatu re: 36.9 (C) / 98.4 (F) Weight: 251 lbs Code: 81017-8 05/06/2013 Blood Pressure 1: 128/78 Code: 8480-6 BMI: 39.2 Code: 10307-2 Heart Rate 1: 76 bpm Height: 5'7" Code: 8302-2 Respiratory Rate: 22 bpm Temperatu re: 35.8 (C) / 96.4 (F) Weight: 250 lbs Code: 55196-8 04/23/2013 Blood Pressure 1: 132/92 Code: 8480-6 BMI: 39.6 Code: 69677-9 Heart Rate 1: 88 bpm Height: 5'7" Code: 8302-2 Respiratory Rate: 28 bpm SpO2: 97% Temperature: 36.5 (C) / 97.7 (F) Weight: 253 lbs Code: 53367-8 03/31/2013 Blood Pressure 1: 122/80 Code: 8480-6 BMI: 39.0 Code: 82848-1 Heart Rate 1: 84 bpm Height: 5'7" Code: 8302-2 Respiratory Rate: 20 bpm Temperatu re: 36.6 (C) / 97.8 (F) Weight: 249 lbs Code: 02635-4 03/05/2013 Blood Pressure 1: 120/80 Code: 8480-6 BMI: 39.2 Code: 94899-2 Heart Rate 1: 60 bpm Height: 5'7" Code: 8302-2 Respiratory Rate: 22 bpm Temperatu re: 35.9 (C) / 96.6 (F) Weight: 250 lbs Code: 49409-3 02/04/2013 Blood Pressure 1: 124/80 Code: 8480-6 BMI: 38.4 Code: 57701-0 Heart Rate 1: 80 bpm Height: 5'7" Code: 8302-2 Respiratory Rate: 20 bpm Temperatu re: 36.4 (C) / 97.6 (F) Weight: 245 lbs Code: 12895-5 11/27/2012 Blood Pressure 1: 127/83 Code: 8480-6 Te mperature: 36.1 (C) / 96.9 (F) Weight: 243 lbs 2 oz Code: 09806-5 11/11/2012 Blood Pressure 1: 126/82 Code: 8480-6 BMI: 37.4 Code: 16465-0 Heart Rate 1: 80 bpm Height: 5'7" Code: 8302-2 Respiratory Rate: 20 bpm Temperatu re: 36.8 (C) / 98.2 (F) Weight: 239 lbs Code: 08736-8 10/20/2012 Blood Pressure 1: 114/80 Code: 8480-6 BMI: 37.1 Code: 78659-8 Heart Rate 1: 104 bpm Height: 5'7" Code: 8302-2 Respiratory Rate: 20 bpm Temperatu re: 36.9 (C) / 98.4 (F) Weight: 237 lbs Code: 97633-1 09/03/2012 Blood Pressure 1: 118/72 Code: 8480-6 BMI: 37.3 Code: 45393-2 Heart Rate 1: 70 bpm Height: 5'7" Code: 8302-2 Temperature: 35.6 (C) / 96.0 (F) Weight: 238 lbs Code: 13708-1 07/23/2012 Blood Pressure 1: 124/78 Code: 8480-6 BMI: 36.8 Code: 81542-6 Heart Rate 1: 68 bpm Height: 5'7" Code: 8302-2 Temperature: 35.6 (C) / 96.0 (F) Weight: 235 lbs Code: 17510-9 05/20/2012 Blood Pressure 1: 112/70 Code: 8480-6 BMI: 37.1 Code: 55710-2 Heart Rate 1: 76 bpm Height: 5'7" Code: 8302-2 Respiratory Rate: 20 bpm Temperatu re: 36.7 (C) / 98.1 (F) Weight: 237 lbs Code: 41240-7 04/04/2012 Blood Pressure 1: 110/64 Code: 8480-6 BMI: 37.1 Code: 20862-6 Heart Rate 1: 68 bpm Height: 5'7" Code: 8302-2 Temperature: 36.1 (C) / 97.0 (F) Weight: 237 lbs Code: 35845-1 02/20/2012 Blood Pressure 1: 136/78 Code: 8480-6 BMI: 37.1 Code: 49837-0 Heart Rate 1: 72 bpm Height: 5'7" Code: 8302-2 Respiratory Rate: 20 bpm Temperatu re: 36.7 (C) / 98.0 (F) Weight: 237 lbs Code: 43770-7 01/02/2012 Blood Pressure 1: 122/70 Code: 8480-6 BMI: 37.1 Code: 19005-8 Heart Rate 1: 76 bpm Height: 5'7" Code: 8302-2 Respiratory Rate: 20 bpm Temperatu re: 37.0 (C) / 98.6 (F) Weight: 237 lbs Code: 45317-1 09/04/2011 Blood Pressure 1: 120/84 Code: 8480-6 BMI: 35.4 Code: 08274-0 Heart Rate 1: 68 bpm Height: 5'7" Code: 8302-2 Temperature: 30.0 (C) / 86.0 (F) Weight: 226 lbs Code: 42122-4 08/14/2011 Blood Pressure 1: 120/82 Code: 8480-6 BMI: 36.5 Code: 88782-1 Heart Rate 1: 80 bpm Height: 5'7" Code: 8302-2 Temperature: 36.6 (C) / 97.8 (F) Weight: 233 lbs Code: 70821-6 07/31/2011 Blood Pressure 1: 138/86 Code: 8480-6 BMI: 37.0 Code: 59688-0 Heart Rate 1: 94 bpm Height: 5'7" Code: 8302-2 Temperature: 35.4 (C) / 95.7 (F) Weight: 236 lbs Code: 10013-8 07/25/2011 Blood Pressure 1: 128/80 Code: 8480-6 BMI: 37.0 Code: 23654-9 Heart Rate 1: 80 bpm Height: 5'7" Code: 8302-2 Temperature: 35.6 (C) / 96.0 (F) Weight: 236 lbs Code: 24121-5 07/12/2011 Blood Pressure 1: 132/80 Code: 8480-6 BMI: 37.0 Code: 76336-4 Heart Rate 1: 96 bpm Height: 5'7" Code: 8302-2 Respiratory Rate: 20 bpm Temperatu re: 36.3 (C) / 97.3 (F) Weight: 236 lbs Code: 84062-4 05/09/2011 Blood Pressure 1: 106/78 Code: 8480-6 BMI: 36.6 Code: 21434-8 Heart Rate 1: 72 bpm Height: 5'7" Code: 8302-2 Respiratory Rate: 20 bpm Temperatu re: 36.4 (C) / 97.6 (F) Weight: 234 lbs Code: 90420-5 05/02/2011 Blood Pressure 1: 96/72 Code: 8480-6 BMI: 36.6 C ode: 35945-4 Heart Rate 1: 108 bpm Height: 5'7" Code: 8302-2 Respiratory Rate: 24 bpm Temperatu re: 36.7 (C) / 98.0 (F) Weight: 234 lbs Code: 51089-6 04/25/2011 Blood Pressure 1: 120/72 Code: 8480-6 BMI: 36.5 Code: 20340-4 Heart Rate 1: 70 bpm Height: 5'7" Code: 8302-2 Temperature: 36.7 (C) / 98.0 (F) Weight: 233 lbs Code: 20935-0 04/04/2011 Blood Pressure 1: 126/92 Code: 8480-6 BMI: 36.5 Code: 64092-5 Heart Rate 1: 84 bpm Height: 5'7" Code: 8302-2 Respiratory Rate: 20 bpm Temperatu re: 36.2 (C) / 97.2 (F) Weight: 233 lbs Code: 14648-5 03/01/2011 Blood Pressure 1: 132/78 Code: 8480-6 Heart Rate 1: 88 bpm Temperature: 36.8 (C) / 98.2 (F) Weight: 231 lbs Code: 26941-0 01/04/2011 Blood Pressure 1: 122/78 Code: 8480-6 BMI: 37.0 Code: 13006-6 Heart Rate 1: 80 bpm Height: 5'7" Code: 8302-2 Temperature: 37.0 (C) / 98.6 (F) Weight: 236 lbs Code: 22033-2 12/07/2010 Blood Pressure 1: 132/92 Code: 8480-6 Heart Rate 1: 98 bpm Temperature: 36.2 (C) / 97.2 (F) Weight: 237 lbs Code: 18702-5 10/09/2010 Blood Pressure 1: 128/80 Code: 8480-6 Heart Rate 1: 72 bpm Temperature: 36.5 (C) / 97.7 (F) Weight: 244 lbs Code: 94344-7 08/07/2010 Blood Pressure 1: 114/80 Code: 8480-6 Heart Rate 1: 72 bpm Temperature: 36.2 (C) / 97.1 (F) Weight: 245 lbs Code: 84822-5 06/06/2010 Blood Pressure 1: 132/86 Code: 8480-6 Heart Rate 1: 80 bpm Temperature: 36.8 (C) / 98.2 (F) Weight: 242 lbs Code: 56435-2 04/12/2010 Blood Pressure 1: 126/82 Code: 8480-6 Heart Rate 1: 72 bpm Temperature: 36.8 (C) / 98.2 (F) Weight: 237 lbs Code: 66971-8 03/20/2010 Blood Pressure 1: 124/78 Code: 8480-6 Heart Rate 1: 76 bpm Temperature: 36.1 (C) / 97.0 (F) Weight: 239 lbs Code: 63344-1 01/30/2010 Blood Pressure 1: 118/80 Code: 8480-6 Heart Rate 1: 84 bpm Temperature: 37.1 (C) / 98.7 (F) Weight: 239 lbs Code: 74838-2 01/09/2010 Blood Pressure 1: 120/72 Code: 8480-6 BMI: 36.8 Code: 90990-2 Heart Rate 1: 80 bpm Height: 5'7" Code: 8302-2 Temperature: 36.1 (C) / 97.0 (F) Weight: 235 lbs Code: 60980-4 11/07/2009 Blood Pressure 1: 140/36 Cod e: 8480-6 10/26/2009 Blood Pressure 1: 126/82 Code: 8480-6 BMI: 36.9 Code: 98534-7 Heart Rate 1: 84 bpm Height: 5'7" Code: 8302-2 Temperature: 36.5 (C) / 97.7 (F) Weight: 234 lbs Code: 52207-7 10/17/2009 Blood Pressure 1: 140/88 Code: 8480-6 BMI: 36.3 Code: 38710-0 Heart Rate 1: 88 bpm Height: 5'7" Code: 8302-2 Temperature: 36.7 (C) / 98.0 (F) Weight: 232 lbs Code: 14734-9 10/04/2009 Blood Pressure 1: 140/90 Code: 8480-6 BMI: 36.3 Code: 66549-1 Heart Rate 1: 84 bpm Height: 5'7" Code: 8302-2 Temperature: 36.4 (C) / 97.6 (F) Weight: 232 lbs Code: 90528-7 09/21/2009 Blood Pressure 1: 136/82 Code: 8480-6 BMI: 36.3 Code: 53507-3 Heart Rate 1: 88 bpm Height: 5'7" Code: 8302-2 Temperature: 35.8 (C) / 96.4 (F) Weight: 232 lbs Code: 24380-6 Functional Status No Functional Status data Reason [...] 09/04/2011 chest congestion 09/04/2011 follow up 08/14/2011 [facility] 08/14/2011 venous thrombosis 08/14/2011 abdominal pain [...] Encounter Performer Location Location Address Codes Date ([id number]) OFFICE/OUTPATIENT VISIT EST Diagnosis: Hypothyroidism[ICD10: E03.9] Diagnosis: Essential (primary) hypertension[ICD10: I10] Diagnosis: Mixed hyperlipidemia[ICD10: E78.2] Diagnosis: Stress at home[ICD10: F43.9] Jayna VANESSA [address] [address] CPT-4: 75940 08/07/2022 ([id number]) OFFICE/OUTPATIENT VISIT EST Diagnosis: Acute cystitis[ICD10: N30.00] Marlene Bel BR[address] [address] CPT-4: 87144 06/29/2022 ([id number]) OFFICE/OUTPATIENT VISIT EST Diagnosis: Depression[ICD10: F32.A] Diagnosis: Hypothyroidism[ICD10: E03.9] Jayna VANESSA [address] [address] CPT-4: 01512 05/28/2022 ([id number]) OFFICE/OUTPATIENT VISIT EST Diagnosis: Depression[ICD10: F32.A] Diagnosis: Fatigue[ICD10: R53.83] Diagnosis: Hypothyroidism[ICD10: E03.9] Diagnosis: Hyperglycemia[ICD10: R73.9] Jayna GUTIERREZ S. 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] Jayna VANESSA DO [address] [address] CPT-4: 46376 02/15/2022 ([id number]) Annual depression screening, 15 minutes Diagnosis: Encounter for general adult medical examination without abnormal findings[ICD10: Z00.00] Diagnosis: Essential (primary) hypertension[ICD10: I10] Diagnosis: Mixed hyperlipidemia[ICD10: E78.2] Diagnosis: Hypothyroidism, unspecified[ICD10: E03.9] Diagnosis: Chronic obstructive pulmonary disease, unspecified[ICD10: J44.9] Jayna VANESSA DO [address] [address] CPT-4: G0444 02/06/2022 ([id number]) OFFICE/OUTPATIENT VISIT EST Diagnosis: 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] Diagnosis: Vision changes[ICD10: H53.9] Latasha Anand JAYNA VANESSA DO [address] [address] CPT-4: 85130 02/01/2022 ([id number]) OFFICE/OUTPATIENT VISIT EST Diagnosis: Diarrhea[ICD10: R19.7] Diagnosis: Cough[ICD10: R05.9] Jayna VANESSA DO [address] [address] CPT-4: 29167 11/30/19 ([id number]) OFFICE/OUTPATIENT VISIT EST Diagnosis: Post-viral cough syndrome[ICD10: R05.8] Diagnosis: Otalgia of both ears[ICD10: H92.03] Diagnosis: Diarrhea[ICD10: R19.7] Jayna GUTIERREZ Daniel Villalba DO [address] [address] CPT-4: 91863 11/22/2021 ([id number]) OFFICE/OUTPATIENT VISIT EST Diagnosis: Diarrhea of presumed infectious origin[ICD10: R19.7] Diagnosis: Altered taste[ICD10: R43.2] Diagnosis: Chronic bronchitis[ICD10: J42] Diagnosis: History of recent pneumonia[ICD10: Z87.01] Latasha Kika JAYNA Daniel VANESSA [address] [address] CPT- 4: 24067 11/21/2021 ([id number]) OFFICE/OUTPATIENT VISIT EST Diagnosis: Serous otitis media[ICD10: H65.90] Diagnosis: Postnasal drip[ICD10: R09.82] Diagnosis: Pneumonia[ICD10: J18.9] Jayna GUTIERREZ TracyPaige JANIS ER DO [address] [address] CPT-4: 67703 11/09/2021 ([id number]) NO CHARGE Diagnosis: Pneumonia[ICD10: J18.9] Diagnosis: Respiratory distress[ICD10: R06.03] Jayna KENNEY Daniel VANESSA DO [address] [address] CPT-4: 63734 10/31/2021 ([id number]) OFFICE/OUTPATIENT VISIT EST Diagnosis: Vertigo[ICD10: R42] Diagnosis: Nausea[ICD10: R11.0] Diagnosis: Pneumonia[ICD10: J18.9] Jayna GUTIERREZ TracyPaige JANIS ER DO [address] [address] CPT-4: 58900 10/30/2021 ([id number]) OFFICE/OUTPATIENT VISIT EST Diagnosis: Cervicalgia[ICD10: M54.2] Jayna ELAM [address] [address] CPT-4: 40067 09/05/2021 ([id number]) OFFICE/OUTPATIENT VISIT EST Diagnosis: 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] Diagnosis: Seronegative rheumatoid arthritis[ICD10: M06.00] Latasha VANESSA DO [address] [address] CPT- 4: 84879 08/24/2021 ([id number]) OFFICE/OUTPATIENT VISIT EST Diagnosis: Upper respiratory infection[ICD10: J06.9] Diagnosis: Contact with and (suspected) exposure to other viral communicable diseases[ICD10: Z20.828] Latasha VANESSA [address] [address] CPT-4: 70975 07/04/2021 ([id number]) NURSE/OUTPATIENT VISIT EST Diagnosis: FLU VACCINE[ICD10: Z23] Jayna JIANG [address] [address] CPT-4: 04434 03/29/2021 ([id number]) OFFICE/OUTPATIENT VISIT EST Diagnosis: Vasovagal episode[ICD10: R55] Diagnosis: Orthostatic hypotension[ICD10: I95.1] Latasha VANESSA [facility] [address] [place] [address] CPT-4: 18276 03/01/2021 ([id number]) OFFICE/OUTPATIENT VISIT EST Diagnosis: Sebaceous cyst of right axilla[ICD10: L72.3] Latasha VANESSA DO [address] [address] CPT- 4: 25638 02/08/2021 ([id number]) OFFICE/OUTPATIENT VISIT EST Diagnosis: Contact dermatitis[ICD10: L25.9] Jayna VANESSA [address] [address] CPT-4: 48524 01/19/2021 ([id number]) OFFICE/OUTPATIENT VISIT EST Diagnosis: Upper respiratory infection[ICD10: J06.9] Diagnosis: COPD exacerbation[ICD10: J44.1] Latasha VANESSA DO [address] [address] CPT-4: 53138 11/29/2020 ([id number]) OFFICE/OUTPATIENT VISIT EST Diagnosis: Sinusitis[ICD10: J32.9] Diagnosis: Acute pansinusitis, recurrence not specified[ICD10: J01.40] Latasha VANESSA [address] [address] CPT-4: 35282 09/29/2020 OFFICE/OUTPATIENT VISIT EST Diagnosis: Other seasonal allergic rhinitis[ICD10: J30.2] Diagnosis: Chronic bronchitis[ICD10: J42] Diagnosis: 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] Diagnosis: Middle ear effusion[ICD10: H65.90] Diagnosis: Fluid level behind tympanic membrane of both ears[ICD10: H65.93] Latasha VANESSA [address] [address] CPT-4: 65821 09/19/2020 ([id number]) OFFICE/OUTPATIENT VISIT EST Diagnosis: Right-sided tinnitus[ICD10: H93.11] Jayna Dionicioallie VILLARREALJEREMIAH VANESSA [address] [address] CPT-4: 57248 08/10/2020 ([id number]) OFFICE/OUTPATIENT VISIT EST Diagnosis: Dysfunction of right eustachian tube[ICD10: H69.81] Diagnosis: Right-sided tinnitus[ICD10: H93.11] Jayna Vanessa [address] [address] CPT-4: 63985 2020 ([id number]) OFFICE/OUTPATIENT VISIT EST Diagnosis: Pyelonephritis[ICD10: N12] Diagnosis: Anemia[ICD10: D64.9] Diagnosis: Blood in stool[ICD10: K92.1] Jayna Greenbergleydaapolinar VANESSA DO [address] [address] CPT-4: 15962 07/13/2020 ([id number]) OFFICE/OUTPATIENT VISIT EST Diagnosis: Acute gastroenteritis[ICD10: K52.9] Jayna Dionicioallie MORILLOAlecia VANESSA [address] [address] CPT-4: 67732 07/05/2020 ([id number]) OFFICE/OUTPATIENT VISIT EST Diagnosis: Essential hypertension[ICD10: I10] Diagnosis: Hypothyroidism, unspecified[ICD10: E03.9] Diagnosis: Metabolic syndrome[ICD10: E88.81] Diagnosis: Mixed hyperlipidemia[ICD10: E78.2] Diagnosis: 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00] Jayna Villalba DO [facility] [address] [place] [address] CPT-4: 56670 03/07/2020 ([id number]) OFFICE/OUTPATIENT VISIT EST Diagnosis: Upper respiratory infection[ICD10: J06.9] Genesis VANESSA DO [facility] [address] [place] [address] CPT-4: 69924 02/11/2020 ([id number]) OFFICE/OUTPATIENT VISIT EST Diagnosis: Dermatitis[ICD10: L30.9] Diagnosis: Urticaria[ICD10: L50.9] Jayna Vanessa [facility] [address] [place] [address] CPT-4: 28324 09/29/2019 ([id number]) OFFICE/OUTPATIENT VISIT EST Diagnosis: Bone spur of right foot[ICD10: M77.51] Diagnosis: Recurrent UTI[ICD10: N39.0] Diagnosis: MRSA (methicillin resistant staph aureus) culture positive[ICD10: Z22.322] Jayna Vanessa [facility] [address] [place] [address] CPT-4: 81147 09/14/2019 ([id number]) NURSE/OUTPATIENT VISIT EST Diagnosis: Urinary tract infection[ICD10: N39.0] Jayna VANESSA DO [facility] [address] [place] [address] CPT-4: 78089 09/11/2019 ([id number]) NURSE/OUTPATIENT VISIT EST Diagnosis: Urinary tract infection, site not specified[ICD10: N39.0] Jayna GREENBERGNDER DO [facility] [address] [place] [address] CPT-4: 08244 09/08/2019 ([id number]) NURSE/OUTPATIENT VISIT EST Diagnosis: Urinary tract infection, site not specified[ICD10: N39.0] Jayna VANESSA DO [facility] [address] [place] [address] CPT-4: 88708 09/07/2019 ([id number]) OFFICE/OUTPATIENT VISIT EST Diagnosis: Pelvic pain in female[ICD10: R10.2] Diagnosis: Urinary frequency[ICD10: R35.0] [facility] [address] [place] [address] CPT-4: 20348 09/02/2019 ([id number]) OFFICE/OUTPATIENT VISIT EST Diagnosis: Sinusitis[ICD10: J32.9] [facility] [address] [place] [address] CPT-4: 61228 07/09/2019 ([id number]) OFFICE/OUTPATIENT VISIT EST Diagnosis: UTI (urinary tract infection)[ICD10: N39.0] Diagnosis: FLU VACCINE[ICD10: Z23] [facility] [address] [place] [address] CPT-4: 14824 04/15/2019 ([id number]) OFFICE/OUTPATIENT VISIT EST Diagnosis: Pain in right leg[ICD10: M79.604] Genesis BRUCEER DO [address] [address] CPT-4: 17270 04/07/2019 ([id number]) OFFICE/OUTPATIENT VISIT EST Diagnosis: Diverticulitis of large intestine without perforation or abscess without bleeding[ICD10: K57.32] Diagnosis: Cystitis[ICD10: N30.90] Jayna [facility] [address] [place] [address] CPT-4: 21808 03/25/2019 ([id number]) OFFICE/OUTPATIENT VISIT EST Diagnosis: Abdominal pain[ICD10: R10.9] Diagnosis: Cystitis[ICD10: N30.90] Jayna [facility] [address] [place] [address] CPT-4: 60082 03/18/2019 ([id number]) OFFICE/OUTPATIENT VISIT EST Diagnosis: Diverticulitis of large intestine without perforation or abscess without bleeding[ICD10: K57.32] Diagnosis: Generalized abdominal pain[ICD10: R10.84] Diagnosis: Urinary tract infection, site not specified[ICD10: N39.0] Genesis VANESSA DO [address] [address] CPT-4: 83916 01/26/2019 ([id number]) OFFICE/OUTPATIENT VISIT EST Diagnosis: Mild intermittent asthma with (acute) exacerbation[ICD10: J45.21] Diagnosis: Allergic rhinitis due to pollen[ICD10: J30.1] Jayna VANESSA DO [address] [address] CPT- 4: 69704 01/08/2019 ([id number]) OFFICE/OUTPATIENT VISIT EST Diagnosis: Mild intermittent asthma with (acute) exacerbation[ICD10: J45.21] Diagnosis: URI, ACUTE[ICD10: J06.9] Diagnosis: Urinary tract infection, site not specified[ICD10: N39.0] Jayna VANESSA DO [address] [address] CPT-4: 61804 01/06/2019 ([id number]) OFFICE/OUTPATIENT VISIT EST Diagnosis: Benign paroxysmal vertigo, bilateral[ICD10: H81.13] Diagnosis: Migraine without aura, not intractable, without status migrainosus[ICD10: G43.009] Jayna VANESSA DO [facility] [address] [place] [address] CPT-4: 61211 10/30/2018 ([id number]) OFFICE/OUTPATIENT VISIT EST Diagnosis: Acute bronchitis, unspecified[ICD10: J20.9] Diagnosis: Cough[ICD10: R05] Diagnosis: Other seasonal allergic rhinitis[ICD10: J30.2] Stacey Feng JAYNA VANESSA DO [facility] [address] [place] [address] CPT- 4: 33716 10/07/2018 ([id number]) OFFICE/OUTPATIENT VISIT EST Diagnosis: Pain in unspecified joint[ICD10: M25.50] Diagnosis: Pain in right ankle and joints of right foot[ICD10: M25.571] Diagnosis: Other specified disorders of bone density and structure, unspecified site[ICD10: M85.80] Jayna GUTIERREZ TracyPaige DIONICIONDER DO [facility] [address] [place] [address] CPT-4: 00388 06/23/2018 ([id number]) OFFICE/OUTPATIENT VISIT EST Diagnosis: Hypothyroidism, unspecified[ICD10: E03.9] Diagnosis: Mixed hyperlipidemia[ICD10: E78.2] Jayna ALVARENGA SPaige DIONICIONDER DO [facility] [address] [place] [address] CPT-4: 85182 01/16/2018 ([id number]) OFFICE/OUTPATIENT VISIT EST Diagnosis: Cervicalgia[ICD10: M54.2] Genesis Jolenerylan GUTIERREZ TracyPaige DIONICIO NDER DO [address] [address] CPT-4: 90703 10/16/2017 ([id number]) OFFICE/OUTPATIENT VISIT EST Diagnosis: Headache[ICD10: R51] Diagnosis: Dizziness and giddiness[ICD10: R42] Jayna KENNEY SPaige DIONICIONDER DO [address] [address] CPT-4: 47349 09/12/2017 OFFICE/OUTPATIENT VISIT EST Diagnosis: Cough[ICD10: R05] Genesis Jolenerylan GUTIERREZ SPaige DIONICIONDER DO [facility] [address] [place] [address] CPT-4: 83089 08/20/2017 ([id number]) OFFICE/OUTPATIENT VISIT EST Diagnosis: COUGH[ICD10: R05] Jayna GUTIERREZ SPaige DIONICIONDER DO [facility] [address] [place] [address] CPT-4: 13917 08/13/19 18 ([id number]) OFFICE/OUTPATIENT VISIT EST Diagnosis: Acute bronchospasm[ICD10: J98.01] Jayna Thomas SPaige ORENDER [address] [address] CPT-4: 44669 07/29/2017 OFFICE/OUTPATIENT VISIT EST Diagnosis: Influenza due to identified novel influenza A virus with other respiratory manifestations[ICD10: J09.X2] Genesis VANESSA DO [address] [address] CPT-4: 51280 07/25/2017 ([id number]) OFFICE/OUTPATIENT VISIT EST Diagnosis: Pain in unspecified joint[ICD10: M25.50] Jayna VANESSA DO [address] [address] CPT- 4: 06762 06/10/2017 OFFICE/OUTPATIENT VISIT EST Diagnosis: Acute bronchitis, unspecified[ICD10: J20.9] Genesis VANESSA [address] [address] CPT- 4: 73930 05/28/2017 ([id number]) OFFICE/OUTPATIENT VISIT EST Diagnosis: Hypothyroidism, unspecified[ICD10: E03.9] Diagnosis: Mixed hyperlipidemia[ICD10: E78.2] Diagnosis: Pkzak-4-ikyjtpridzr 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] Diagnosis: Sebaceous cyst[ICD10: L72.3] Jayna VANESSA [address] [address] CPT-4: 28771 11/28/2016 ([id number]) OFFICE/OUTPATIENT VISIT EST Diagnosis: Right upper quadrant pain[ICD10: R10.11] Diagnosis: Epigastric pain[ICD10: R10.13] Jayna VANESSA [address] [address] CPT-4: 76693 06/05/2016 ([id number]) OFFICE/OUTPATIENT VISIT EST Diagnosis: FLU VACCINE[ICD10: Z23] Jayna JIANG [address] [address] CPT-4: 54831 05/01/2016 OFFICE/OUTPATIENT VISIT EST Diagnosis: Hypothyroidism, unspecified[ICD10: E03.9] Diagnosis: Type 1 diabetes mellitus without complications[ICD10: E10.9] Diagnosis: Mixed hyperlipidemia[ICD10: E78.2] Diagnosis: Essential (primary) hypertension[ICD10: I10] Diagnosis: Mixed incontinence[ICD10: N39.46] Jayna [address] [address] CPT-4: 60166 11/08/2015 ([id number]) OFFICE/OUTPATIENT VISIT EST Diagnosis: Hypothyroidism, unspecified[ICD10: E03.9] Diagnosis: Other fatigue[ICD10: R53.83] Jayna VANESSA [address] [address] CPT-4: 52620 07/19/2015 ([id number]) OFFICE/OUTPATIENT VISIT EST Diagnosis: Hypothyroidism, unspecified[ICD10: E03.9] Diagnosis: Mixed hyperlipidemia[ICD10: E78.2] Diagnosis: Metabolic syndrome[ICD10: E88.81] Diagnosis: Right lower quadrant abdominal tenderness[ICD10: R10.813] Diagnosis: FLU VACCINE[ICD10: Z23] Jayna JIANG [address] [address] CPT-4: 65286 03/28/2015 ([id number]) OFFICE/OUTPATIENT VISIT EST Diagnosis: MALAISE AND FATIGUE[ICD9: 780.79] Diagnosis: DEPRESSIVE DISORDER NEC[ICD9: 311] Diagnosis: HYPOTHYROIDISM[ICD9: 244.9] Diagnosis: PNEUMOCOCCAL VACCINE[ICD10: Z23] Jayna [address] [address] CPT-4: 80817 02/08/2015 ([id number]) OFFICE/OUTPATIENT VISIT EST Diagnosis: MALAISE AND FATIGUE[ICD9: 780.79] Diagnosis: DEPRESSIVE DISORDER NEC[ICD9: 311] Diagnosis: HYPOTHYROIDISM[ICD9: 244.9] Diagnosis: ARTHRALGIA-MULTIPLE SITES[ICD9: 719.49] Jayna Dionicioleydaapolinar COPELANDPILAR Daniel VANESSA DO [facility] [address] [place] [address] CPT-4: 26669 01/11/2015 ([id number]) OFFICE/OUTPATIENT VISIT EST 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] Diagnosis: - I - HYPOTHYROIDISM[ICD9: 244.9] Diagnosis: COUGH[ICD10: R05] Diagnosis: ALLERGIC RHINITIS[ICD9: 477.9] Diagnosis: Lumbar degenerative disc disease[ICD9: 722.52] Jaynaparam GUTIERREZ TracyPaige OTF DO [facility] [address] [place] [address] CPT- 4: 98662 11/24/2014 ([id number]) OFFICE/OUTPATIENT VISIT EST Diagnosis: Allergic reaction[ICD9: 995.3] Galina Leos JAYNA Molina Paige OTF DO [facility] [address] [place] [address] CPT-4: 85215 11/19/2014 ([id number]) OFFICE/OUTPATIENT VISIT EST Diagnosis: ALLERGIC RHINITIS[ICD9: 477.9] Diagnosis: WHEEZING[ICD9: 786.07] Diagnosis: URINARY TRACT INFECTION[ICD9: 599.0] Diagnosis: Right flank pain[ICD9: 789.09] Conchita DownsMellanayeli MORILLOLINE Tracy Paige OTF DO [facility] [address] [place] [address] CPT-4: 57236 10/27/2014 ([id number]) OFFICE/OUTPATIENT VISIT EST Diagnosis: URINARY TRACT INFECTION[ICD9: 599.0] Diagnosis: Flank pain[ICD9: 789.09] Conchita DownsMellanayeli MORILLOLINE Daniel DELVALLE EMMA DO [facility] [address] [place] [address] CPT-4: 42595 09/23/2014 ([id number]) OFFICE/OUTPATIENT VISIT EST Diagnosis: HYPERTENSION[ICD9: 401.9] Diagnosis: - I - HYPOTHYROIDISM[ICD9: 244.9] Diagnosis: HYPERLIPIDEMIA NEC/NOS[ICD9: 272.4] Diagnosis: DYSMETABOLIC SYNDROME X[ICD9: 277.7] Jayna QUEZADA SPaige ORENDER DO [address] [address] CPT-4: 92339 07/28/2014 OFFICE/OUTPATIENT VISIT EST Diagnosis: HYPERTENSION[ICD9: 401.9] Diagnosis: GROSS HEMATURIA[ICD9: 599.71] Jayna Sanchez ORENDER DO [address] [address] CPT-4: 33506 03/30/2014 ([id number]) OFFICE/OUTPATIENT VISIT EST 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 ORENDER DO [address] [address] CPT-4: 16317 06/29/2013 OFFICE/OUTPATIENT VISIT EST Diagnosis: DEPRESSIVE DISORDER NEC[ICD9: 311] Jayna Vanessa GERMAINE ALVARENGA S. ORENDER DO [address] [address] CPT-4: 29715 05/26/2013 ([id number]) OFFICE/OUTPATIENT VISIT EST Diagnosis: BRONCHITIS, ACUTE[ICD9: 466.0] Diagnosis: HYPOTHYROIDISM[ICD9: 244.9] Diagnosis: HYPERLIPIDEMIA NEC/NOS[ICD9: 272.4] Diagnosis: Shoulder pain[ICD9: 719.41] Jayna PUCKETT DO [address] [address] CPT-4: 01384 05/06/2013 ([id number]) OFFICE/OUTPATIENT VISIT EST Diagnosis: BRONCHITIS, ACUTE[ICD9: 466.0] Diagnosis: SINUSITIS, ACUTE[ICD9: 461.9] Jayna VANESSA [address] [address] CPT-4: 12822 04/23/2013 ([id number]) OFFICE/OUTPATIENT VISIT EST Diagnosis: DYSPNEA[ICD9: 786.09] Diagnosis: EDEMA[ICD9: 782.3] Diagnosis: QBBRT-4-BZGMAIYIQJU DEFICIENCY[ICD9: 273.4] Diagnosis: COUGH[ICD9: 786.2] Jayna VANESSA [address] [address] CPT-4: 86691 03/31/20 13 OFFICE/OUTPATIENT VISIT EST Diagnosis: Chest pain[ICD9: 786.50] Diagnosis: ANXIETY STATE NOS[ICD9: 300.00] Conchita VANESSA [address] [address] CPT-4: 79934 03/05/2013 ([id number]) OFFICE/OUTPATIENT VISIT EST Diagnosis: HYPERLIPIDEMIA NEC/NOS[ICD9: 272.4] Diagnosis: HYPOTHYROIDISM[ICD9: 244.9] Diagnosis: Jxvfi-2-dzdfludltnc deficiency[ICD9: 273.4] Diagnosis: ALLERGIC RHINITIS[ICD9: 477.9] Jayna VANESSA [address] [address] CPT-4: 22576 02/04/2013 ([id number]) OFFICE/OUTPATIENT VISIT EST Diagnosis: COUGH[ICD9: 786.2] Diagnosis: ALLERGIC RHINITIS[ICD9: 477.9] Jayna VAENSSA [address] [address] CPT-4: 72261 11/27/2012 ([id number]) OFFICE/OUTPATIENT VISIT EST Diagnosis: COUGH[ICD9: 786.2] Diagnosis: DYSPNEA[ICD9: 786.09] Jayna VANESSA [address] [address] CPT-4: 25335 11/11/2012 ([id number]) OFFICE/OUTPATIENT VISIT EST Diagnosis: ABDOMINAL PAIN[ICD9: 789.00] Diagnosis: DIARRHEA[ICD9: 787.91] Diagnosis: COUGH[ICD9: 786.2] Jayna VANESSA DO [address] [address] CPT-4: 39073 10/21/19 13 OFFICE/OUTPATIENT VISIT EST Diagnosis: COUGH[ICD9: 786.2] Diagnosis: SINUSITIS, ACUTE[ICD9: 461.9] Diagnosis: PHARYNGITIS, ACUTE[ICD9: 462] Jayna VANESSA [address] [address] CPT-4: 11347 09/03/2012 OFFICE/OUTPATIENT VISIT EST Diagnosis: ABDOMINAL PAIN[ICD9: 789.00] Diagnosis: Diarrhea[ICD9: 787.91] Jayna VALENZUELA R DO [address] [address] CPT-4: 52284 07/23/2012 ([id number]) OFFICE/OUTPATIENT VISIT EST Diagnosis: DM 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 TYPE II, UNCONTROLLED[ICD9: 250.02] Diagnosis: HYPERLIPIDEMIA NEC/NOS[ICD9: 272.4] Diagnosis: GERD[ICD9: 530.81] Jayna VANESSA [address] [address] CPT-4: 64292 05/20/20 OFFICE/OUTPATIENT VISIT EST Diagnosis: DERMATITIS NOS[ICD9: 692.9] Galina PUCKETT DO [address] [address] CPT-4: 00376 04/04/2012 ([id number]) OFFICE/OUTPATIENT VISIT EST Diagnosis: HYPERLIPIDEMIA NEC/NOS[ICD9: 272.4] Diagnosis: HYPOTHYROIDISM[ICD9: 244.9] Diagnosis: DYSMETABOLIC SYNDROME X[ICD9: 277.7] Jayna VANESSA [address] [address] CPT-4: 65711 01/02/2012 OFFICE/OUTPATIENT VISIT EST Diagnosis: COUGH[ICD9: 786.2] Diagnosis: SINUSITIS, ACUTE[ICD9: 461.9] Lizzie Kelly JAYNA VANESSA [address] [address] CPT-4: 88522 09/04/2011 OFFICE/OUTPATIENT VISIT EST Diagnosis: Diverticulitis[ICD9: 562.11] Diagnosis: THROMBOPHLEBITIS[ICD9: 451.9] Jayna VANESSA [address] [address] CPT-4: 73447 08/14/2011 OFFICE/OUTPATIENT VISIT EST Diagnosis: COUGH[ICD9: 786.2] Jayna VANESSA [address] [address] CPT-4: 01090 07/25/19 OFFICE/OUTPATIENT VISIT EST Diagnosis: HYPOTHYROIDISM[ICD9: 244.9] Diagnosis: HYPERLIPIDEMIA NEC/NOS[ICD9: 272.4] Diagnosis: Total knee replacement status[ICD9: V43.65] Jayna VANESSA [address] [address] CPT- 4: 29681 07/12/2011 OFFICE/OUTPATIENT VISIT EST Diagnosis: BRONCHITIS, ACUTE[ICD9: 466.0] Diagnosis: COUGH[ICD9: 786.2] Jayna GREENBERGNDAPOLINAR [address] [address] CPT-4: 25335 05/09/20 11 OFFICE/OUTPATIENT VISIT EST Diagnosis: BRONCHITIS, ACUTE[ICD9: 466.0] Diagnosis: ASTHMA NOS[ICD9: 493.90] Diagnosis: Pleurisy[ICD9: 511.0] Jayna Sanchez [facility] [address] [place] [address] CPT-4: 33443 05/02/2011 OFFICE/OUTPATIENT VISIT EST Diagnosis: COUGH[ICD9: 786.2] Jayna Sanchez [facility] [address] [place] [address] CPT-4: 66581 04/25/20 11 OFFICE/OUTPATIENT VISIT EST Diagnosis: COUGH[ICD9: 786.2] Diagnosis: SINUSITIS, ACUTE[ICD9: 461.9] Jayna GREENBERGNDER DO [address] [address] CPT-4: 89296 04/04/2011 OFFICE/OUTPATIENT VISIT EST Diagnosis: HYPOTHYROIDISM[ICD9: 244.9] Diagnosis: Knee osteoarthritis[ICD9: 715.96] Jayna Thomas SPaige ORENDER DO [address] [address] CPT-4: 14523 03/01/2011 OFFICE/OUTPATIENT VISIT EST Jayna GREENBERG NDER DO [address] [address] CPT-4: 70907 01/04/2011 ([id number]) OFFICE/OUTPATIENT VISIT EST Jayna PISANO UELINE S. [facility] [address] [place] [address] CPT-4: 31403 12/07/2010 ([id number]) OFFICE/OUTPATIENT VISIT EST Jayna Otf PISANO UELINE S. [facility] [address] [place] [address] CPT-4: 33916 10/09/2010 ([id number]) OFFICE/OUTPATIENT VISIT EST Jaynaparam [facility] [address] [place] [phone] CPT-4: 12500 08/07/2010 ([id number]) OFFICE/OUTPATIENT VISIT, [facility] [address] [place] [address] CPT-4: 48891 06/06/2010 ([id number]) OFFICE/OUTPATIENT VISIT, [facility] [address] [place] [phone] CPT-4: 91249 03/20/2010 ([id number]) OFFICE/OUTPATIENT VISIT, [facility] [address] [place] [phone] CPT-4: 66062 01/30/2010 ([id number]) OFFICE/OUTPATIENT VISIT, [facility] [address] [place] [phone] CPT-4: 93882 01/09/2010 ([id number]) OFFICE/OUTPATIENT VISIT, [facility] [address] [place] [phone] CPT-4: 92354 10/26/2009 ([id number]) OFFICE/OUTPATIENT VISIT, [facility] [address] [place] [phone] CPT-4: 96909 10/18/19 10 ([id number]) OFFICE/OUTPATIENT VISIT, [facility] [address] [place] [phone] CPT-4: 88651 10/04/2009 ([id number]) OFFICE/OUTPATIENT VISIT, [facility] [address] [place] [phone] CPT-4: 02028 09/21/2009 Plan of Care Planned Activity Notes [...] 06/29/2022 Appointment: [facility] Sta[facility] [phone] [id number] [facility] 06/29/2022 Patient Education: ciprofloxacin HCl- [employer] Coupon [id number] Completed 06/29/2022 Visit Diagnosis Plan: Depression Discussion: Increase Wellbutrin XL to 300mg po qAM Fwup 2 mos ICD-9 : 311 ICD-10 : F32.A 05/28/2022 Visit Diagnosis Plan: Hypothyroidism Discussion: Labs discussed Decrease levothyroxine to 150mcg 6 days a week and repeat thyroid lab in 2mos ICD-9 : 244.9 ICD-10 : E03.9 05/28/2022 Appointment: [facility] W[facility]el[facility] [phone] [id number] FOLLOW UP 05/28/2022 Visit Diagnosis [...] : R73.9 05/10/2022 Appointment: Jayna Vanessa WPtel: [address] [place], [place] [phone] [place] FOLLOW UP 05/10/2022 Visit Diagnosis Plan: Migraine, intractable Discussion : Toradol 30mg IM x1 given in clinic. Start Rizatriptan-- discussed on how to use and may repeat x1 dose 2 hours later. Restart propranolol for migraine prevention. Notify clinic if migraine not improving. ICD-9 : 346.91 ICD-10 : G43.919 04/18/2022 Appointment: Marlene Staples WPtel: [phone] [phone] ACUTE ILLNESS 04/18/2022 Patient Education: propranolol- OptimizeRX Coupon [id number] Completed 04/18/2022 Appointment: Jayna Vanessa WPtel: [address] [place], [place] [phone] US INJECTION 04/05/2022 Appointment: Jayna Vanessa WPtel: [address] [place], [place] [phone] US CANCELED 03/21/2022 Visit Diagnosis Plan: Acute [...] : J30.9 02/15/2022 Appointment: Jayna Vanessa WPtel: [address] [place], [place] [phone] US ACUTE ILLNESS 02/15/2022 Patient Education: prednisone- OptimizeRX Coupon [id number] https://www.iSECUREtrac/samplemd/resources/getResource/61/47r90qm2-r880-6p79-ae Completed 02/15/2022 Visit Diagnosis Plan: Hypothyroidism, unspecified Disc ussion: Stable ICD-9 : 244.9 ICD-10 : E03.9 02/06/2022 Visit Diagnosis Plan: Encounter for [facility] adult medical examination without abnormal findings [...] J44.9 02/06/2022 Appointment: Jayna Vanessa WPtel: [phone] [phone] Annual Well Visit 02/06/2022 Care Plan: Annual depression screening, 15 minutes 02/06/2022 Visit Diagnosis Plan: 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 Patient declines- will get stat CT of the head, cbc, cmp, and ESR and fwup with results [facility] sample given ICD-9 : 346.03 ICD-10 : G43.111 02/01/2022 Appointment: Latasha Anand WPtel[facility] [phone] [id number] [facility] I[facility]NESS 02/01/2022 Patient Education: Patient Medication [...] R19.7 11/29/2021 Appointment: Jayna Vanessa WPtel: [phone] [place] [phone] FOLLOW UP 11/29/2021 Visit Diagnosis Plan: Diarrhea Discussion: C Diff nega tive Treat with diflucan and Restora-RX Fwup 1 week ICD-9 : 787.91 ICD-10 : R19.7 11/22/2021 Visit Diagnosis Plan: Post-viral cough syndrome Discus joaquín: Change albuterol to Breztri 2p BID Add singulair 10mg po q HS ICD-9 : 786.2 ICD-10 : R05.8 11/22/2021 Appointment: Jayna Vanessa WPtel: [phone] ACUTE ILLNESS 11/22/2021 Patient Education: Singulair- OptimizeRX Coupon [id number] https://www.iSECUREtrac/samplemd/resources/getResource/61/1b95ykj5-6vuu-9631-5d Completed 11/22/2021 Visit Diagnosis Plan: Diarrhea of presumed infectious origin Discussion: Will check for c-diff due to recent antibiotics and foul smelling diarrhea ICD-9 : 009.3 ICD-10 : R19.7 11/21/2021 Visit Diagnosis Plan: History of recent pneumonia Disc ussion: Check cbc, cmp, ESR, and cxr now ICD-9 : V12.61 ICD-10 : Z87.01 11/21/2021 Appointment: Latasha Anand WPtel: [phone] ACUTE ILLNESS 11/21/2021 Patient Education: Patient Medication Summary Completed 11/21/2021 Visit Diagnosis Plan: Pneumonia Discussion: Finish all abx and continue albuterol Fwup next week ICD-9 : 486 ICD-10 : J18.9 11/09/2021 Visit Diagnosis Plan: Serous otitis media Discussion: Kenalog 40mg with Dexamethasone 2mg IM now ICD-9 : 381.4 ICD-10 : H65.90 11/09/2021 Appointment: Jayna Vanessa WPtel: [address] [place], [place] [phone] Hospital Follow Up 11/09/2021 Visit Diagnosis Plan: Pneumonia Discussion: Admit to h ospital ICD-9 : 486 ICD-10 : J18.9 10/31/2021 Appointment: Jayna Vanessa WPtel: [address] [place], [place] [phone] FOLLOW UP 10/31/2021 Visit Diagnosis Plan: Nausea [...] e prn 10/30/2021 Appointment: Jayna Vanessa WPtel: [address] [place], [place] [phone] ACUTE ILLNESS 10/30/2021 Visit Diagnosis Plan: Cervicalgia Discussion: Had x-ra ys done Kenalog 40mg IM now Baclofen prn Mobic for 1 week Topical muscle rube Moist heat and stretches shown Has PT sessions scheduled next week so will add in therapy for neck ICD-9 : 723.1 ICD-10 : M54.2 09/05/2021 Appointment: Jayna Vanessa WPtel: [address] [place], [place] [phone] ACUTE ILLNESS 09/05/2021 Visit Diagnosis Plan: Arthritis [...] 08/24/2021 Appointment: Latasha Anand WPtel: [phone] [phone] ACUTE ILLNESS 08/24/2021 Patient Education: Patient Medication Summary Completed 08/24/2021 Patient Education: prednisone- OptimizeRX Coupon [id number] Completed 08/24/2021 Visit Plan: Supportive care. Rest, [...] 07/04/2021 Appointment: Latasha Anand WPtel: [phone] [phone] US ACUTE ILLNESS 07/04/2021 Patient Education: Patient Medication Summary Completed 07/04/2021 Patient Education: Patient Medication Summary Completed 07/04/2021 Appointment: Latasha Anand WPtel: [phone] [phone] US NO SHOW 07/03/2021 Appointment: Latasha Anand WPtel: [phone] [phone] US patients issue resolved so moved to 's schedule for his hospital fwup (km) CANCELED 03/29/2021 Appointment: Jayna Vanessa WPtel: [phone] [phone] US INJECTION 03/29/2021 Visit Diagnosis Plan: Vasovagal episode Discussion: Mo nitored in office. Stable, feeling better- sent to [facility] for 1L NS IV, cbc, and cmp. ICD-9 : 780.2 ICD-10 : R55 03/01/2021 Patient Education: Patient Medication Summary Completed 03/01/2021 Visit Diagnosis Plan: Sebaceous cyst of right axilla D iscussion: Pustule/cyst drained- see note. F/U for concerns. ICD-9 : 706.2 ICD-10 : L72.3 02/08/2021 Appointment: Latasha Anand WPtel: [phone] [phone] ACUTE ILLNESS 02/08/2021 Patient Education: Patient Medication Summary Completed 02/08/2021 Visit Diagnosis Plan: Contact dermatitis Discussion: T opical TAC and prednisone Notify if persists or worsens ICD-9 : 692.9 ICD-10 : L25.9 01/19/2021 Appointment: Jayna Vanessa WPtel: [phone] [phone] ACUTE ILLNESS 01/19/2021 Patient Education: prednisone- OptimizeRX Coupon [id number] Completed 01/19/2021 Patient Education: triamcinolone acetonide- OptimizeRX Coupon [id number] [id number] Completed 01/19/2021 Visit Diagnosis Plan: Hypothyroidism, unspecified Disc ussion: Increase levothyroxine to 150mcg po daily and recheck TSH and free T4 in 2mos ICD-9 : 244.9 ICD-10 : E03.9 01/03/2021 Visit Diagnosis Plan: Essential (primary) hypertension Discussion: Stable ICD-9 : 401.9 ICD-10 : I10 01/03/2021 Visit Diagnosis Plan: Encounter for [facility] adult medical examination without abnormal findings Discussion: Mediterranean diet Combinati on of cardio and weight bearing exercise Had Covid vaccines Lab discussed ICD-9 : V70.9 ICD-10 : Z00.00 01/03/2021 Visit Diagnosis Plan: Chronic obstructive pulmonary di sease, unspecified Discussion: Following with pulmonology ICD-9 : 496 ICD-10 : J44.9 01/03/2021 Appointment: Jayna Vanessa WPtel: [phone] [place] [phone] Annual Well Visit 01/03/2021 Patient Education: levothyroxine- OptimizeRX Coupon [id number] https://www.iSECUREtrac/samplemd/resources/getResource/61/6h444lg0-8nt2-6038-w0 Completed 01/03/2021 Visit Diagnosis Plan: COPD exacerbation Discussion: Sa ivon of keith given. Prednisone 40 mg x 5 days for exacerbation- increased cough, shortness of breath, and phlegm. Promethazine DM cough syrup sent d/t frequent hacking cough that interrupts sleep. F/U for no improvement or any concerns. ICD-9 : 491.21 ICD-10 : J44.1 11/29/2020 Appointment: Latasha Anand WPtel: [phone] [place] [phone] ACUTE ILLNESS 11/29/2020 Patient Education: Patient Medication Summary Completed 11/29/2020 Patient Education: prednisone- OptimizeRX Coupon [id number] Completed 11/29/2020 Patient Education: promethazine-DM- OptimizeRX Coupon [id number] Completed 11/29/2020 Visit Diagnosis Plan: Sinusitis Discussion: Will start doxycycline (pcn allergy). Sinus rinses. Tylenol/nsaids for headache/pain. Return to clinicif not improving/concerns. ICD-9 : 473.9 ICD-10 : J32.9 09/29/2020 Appointment: Latasha Anand WPtel: [phone] [phone] ACUTE ILLNESS 09/29/2020 Patient Education: Patient Medication Summary Completed 09/29/2020 Patient Education: doxycycline hyclate- OptimizeRX Coupon [id number] Completed 09/29/2020 Visit Diagnosis Plan: Other [...] J42 09/19/2020 Appointment: Latasha Anand WPtel: [phone] [phone] ACUTE ILLNESS 09/19/2020 Patient Education: Patient Medication Summary Completed 09/19/2020 Patient Education: ProAir HFA- OptimizeRX Coupon [id number] Completed 09/19/2020 Visit Diagnosis Plan: Right-sided tinnitus [...] H93.11 08/10/2020 Appointment: Jayna Vanessa WPtel: [phone] [phone] FOLLOW UP 08/10/2020 Patient Education: neomycin-polymyxin B-dexameth- Opti mizeRX Coupon [id number] https://www.FIZZA.com/samplemd/resources/getResource/61/cr460e89-b84s-2x09-iu Completed 08/10/2020 Visit Diagnosis Plan: Dysfunction of right eustachian tube Discussion: Alma.de video visit done Increase zyrtec to BID Increase flonase to BID Add prednisone To office at end of week to assess otoscope exam if persists ICD-9 : 381.81 ICD-10 : H69.81 08/01/2020 Appointment: Jayna Vanessa WPtel: [phone] [place] [phone] TELEMEDICINE 08/01/2020 Patient Education: prednisone- OptimizeRX Coupon [id number] https://www.iSECUREtrac/sampletibdit/resources/getResource/61/si3v91k5-2968-7h8k-91 Completed 08/01/2020 Visit Diagnosis Plan: Pyelonephritis Discussion: Hilary daniel all abx Push fluids Check lab and repeat UA in 5 days--CBC, CMP, ESR ICD-9 : 590.80 ICD-10 : N12 07/13/2020 Appointment: Jayna Vanessa WPtel: [phone] [place] [phone] Hospital Follow Up 07/13/2020 Visit Diagnosis Plan: Acute gastroenteritis Discussion : Telephone visit completed Clear liquid diet next 24-48hrs Flagyl to cover for colitis/diverticulitis Zofran prn Notify or to ER if worsening ICD-9 : 558.9 ICD-10 : K52.9 07/05/2020 Appointment: Jayna Vanessa WPtel: [phone] [phone] TELEMEDICINE 07/05/2020 Patient Education: ondansetron HCl- OptimizeRX Coupon [id number] https://www.iSECUREtrac/samplemd/resources/getResource/61/d6i84hl0-1l4w-501h-4e Completed 07/05/2020 Visit Diagnosis Plan: Metabolic syndrome Discussion: U pdate CMP, HBa1c ICD-9 : 277.7 ICD-10 : E88.81 06/22/2020 Visit Diagnosis Plan: Shgyd-1-imvulrmjflg deficiency D iscussion: Following with pulmonology ICD-9 [...] I10 06/22/2020 Appointment: Jayna Vanessa WPtel: [address] [place], [place] [phone] FOLLOW UP 06/22/2020 Visit Diagnosis Plan: Urinary tract infection Discussi on: Macrobid Diflucan Push water Notify if worsens ICD-9 : 599.0 ICD-10 : N39.0 05/17/2020 Appointment: Jayna Vanessa WPtel: [address] [place], [place] [phone] ACUTE ILLNESS 05/17/2020 Patient Education: fluconazole- OptimizeRX Coupon [phone] https://www.iSECUREtrac/Avieonmd/resources/getResource/61/5h9xr0tn-g9q2-0h4o-3s Completed 05/17/2020 Visit Diagnosis Plan: Right pulmonary embolus Discussi on: Continue eliquis at 5mg po BID Has appointments pending with pulmonology and hematology Fwup after visits with both of these specialists ICD-9 : 415.19 ICD-10 : I26.99 03/14/2020 Appointment: Jayna Vanessa WPtel: [address] [place], [place] [phone] [facility] 03/14/20 on cell -- home phone had busy signal Hospital Follow Up 03/14/2020 Appointment: Jayna Vanessa WPtel: [address] [place], [place] [phone] I schedule patient by mistake ddo Scheduled [...] R06.00 03/07/2020 Appointment: Jayna Vanessa WPtel: [phone] [phone] ACUTE ILLNESS 03/07/2020 Care Plan: CT THORAX W/DYE LOINC : 79865 -6 Pending 03/07/2020 Appointment: Jayna Vanessa WPtel: [phone] [phone] NO SHOW - FORGIVEN 03/02/2020 Visit Diagnosis Plan: Upper respiratory infection Disc ussion: patient's covid test was neg from several weeks ago. proair refilled to take as needed. medrol pack prescribed to cover for allergies since her symptoms began after being in [facility]. however, instructed patient that she needs to be checked again for coronavirus due to severity of her symptoms. patient lives near [place] so informed her to go to [facility] in for testing. call ofice with new or worsening symptoms, otherwise push fluids. ICD-9 : 465.9 ICD-10 : J06.9 02/11/2020 Appointment: Genesis Fernández [address] [place] [address] TELEMEDICINE 02/11/2020 Patient Education: ProAir HFA- OptimizeRX Coupon [id number] Completed 02/11/2020 Patient Education: Medrol (Isaiah)- OptimizeRX Coupon [id number] Completed 02/11/2020 Visit Diagnosis Plan: Hypothyroidism, unspecified [...] Visit Diagnosis Plan: Encounter for [facility] adult medical examination without abnormal findings Discussion: Mediterranean diet Combinati on of cardio and weight bearing exercise Lab discussed Last colonoscopy 3 years ago ICD-9 : V70.9 ICD-10 : Z00.00 12/21/2019 Appointment: Jayna Vanessatel: [phone] [phone] Annual Well Visit 12/21/2019 Care Plan: Referral Order SNOMED-CT : 30 [id number] Pending 12/21/2019 Visit Diagnosis Plan: Dermatitis Discussion: Doxy.me v ideo visit done Cover with Prednisone taper Use Zyrtec 10mg po q AM BID ICD-9 : 692.9 ICD-10 : L30.9 09/29/2019 Appointment: Jayna Vanessa WPtel: [phone] [phone] TELEMEDICINE 09/29/2019 Patient Education: prednisone- OptimizeRX Coupon [id number] https://www.FIZZA.com/samplemd/resources/getResource/61/63i90z72-0q50-3i77-4m Completed 09/29/2019 Visit Diagnosis Plan: Bone spur [...] N39.0 09/14/2019 Appointment: Jayna Vanessa WPtel: [phone] [phone] TELEMEDICINE 09/14/2019 Appointment: Jayna Vanessa WPtel: [phone] [phone] US LAB 09/11/2019 Appointment: Jayna Vanessa WPtel: [address] [place], [place] [phone] US 09/09/2019 1210--per Ally patient was to only have 1 injection, reculture urine on 09/11/19 (km) CANCELED 09/09/2019 Appointment: Jayna Vanessa WPtel: [phone] [phone] US INJECTION 09/08/2019 Appointment: Jayna Vanessa WPtel: [phone] [phone] US INJECTION 09/07/2019 Visit Diagnosis Plan: Urinary [...] : R35.0 09/02/2019 Appointment: Genesis Fernández [address] [place] [address] ACUTE ILLNESS 09/02/2019 Visit Diagnosis Plan: Sinusitis Discussion: instructed to start flonase daily and zyrtec daily. if no improvement next week, call clinic and may need further directions. instructed to use saline eye drops as needed to eyes to assist with dryness. ICD-9 : 473.9 ICD-10 : J32.9 07/09/2019 Appointment: Genesis Fernández [address] [place] [address] ACUTE ILLNESS 07/09/2019 Visit Diagnosis Plan: UTI (urinary tract infection) Di scussion: urine culture sent off. will start on macrobid due to symptoms. instructed to push fluids and chemo tomorrow with worsening symptoms. ICD-9 : 599.0 ICD-10 : N39.0 04/15/2019 Appointment: Jayna Vanessa WPtel: [phone] [phone] [facility] INJECTION 04/15/2019 Appointment: Genesis Fernández [address] [place], [place] [phone] ACUTE ILLNESS 04/15/2019 Visit Diagnosis Plan: Pain in right leg Discussion: ke nalog/dexa given in office. continue with flexeril prn. PT was ordered for patient due to chronic issues. call office with worsening symptoms and may need imaging. ICD-9 : 729.5 ICD-10 : M79.604 04/07/2019 Appointment: [facility] [facility] 04/07/2019 Visit Diagnosis Plan: Diverticulitis of large intestine without perforation or abscess without bleeding Discussion: Patient will call when she g ets home and verify which antibiotics she has left--needs at least another week on flagyl and thinks she only took 1 week on that ICD-9 : 562.11 ICD-10 : K57.32 03/25/2019 Appointment: Jayna Vanessa WPtel: [phone] [phone] FOLLOW UP 03/25/2019 Visit Diagnosis Plan: Cystitis Discussion: Bactrim and culture urine ICD-9 : 595.9 ICD-10 : N30.90 03/18/2019 Visit Diagnosis Plan: Abdominal pain Discussion: Cover with flagyl for colitis Starke diet To ER this weekend if worsening Fwup 1 week ICD-9 : 789.00 ICD-10 : R10.9 03/18/2019 Appointment: Jayna Vanessa WPtel: [phone] [phone] ACUTE ILLNESS 03/18/2019 Visit Diagnosis [...] : R10.84 01/26/2019 Appointment: Genesis Fernández [address] [place] [address] ACUTE ILLNESS 01/26/2019 Appointment: Jayna Vanessa WPtel: [facility] [place] [phone] CANCELED 01/12/2019 Visit Diagnosis Plan: Mild intermittent asthma with (a cute) exacerbation Discussion: Kenalog 40mg IM now Prednisone stating tomorrow Start Doxycycline tonight Continue SVNs with duoneb q4hrs To ER this weekend if worsening Call Saturday on how doing ICD-9 : 466.0 ICD-10 : J45.21 01/08/2019 Appointment: Jayna Vanessa WPtel: [facility] [place] [phone] FOLLOW UP 01/08/2019 Patient Education: prednisone- OptimizeRX Coupon [phone] https://www.FIZZA.PowerPlay Mobile/samplemd/resources/getResource/61/37581713-a9kh-6493-06 Completed 01/08/2019 Visit Diagnosis Plan: Mild intermittent asthma with (a cute) exacerbation Discussion: Solumedrol 125mg IM SVN with duoneb given Continue albuterol q4hrs CXR now Recheck tomorrow ICD-9 : 466.0 ICD-10 : J45.21 01/06/2019 Appointment: Jayna Vanessa WPtel: [facility] [place] [phone] ACUTE ILLNESS 01/06/2019 Visit Diagnosis Plan: Encounter for screening for roel gnant neoplasm of colon Discussion: positive for ob. will order ct abd/pelvis due to other findings and discussed with patient that may need to proceed with updated colonoscopy. patient verbalized understanding. ICD-9 : V76.51 ICD-10 : Z12.11 12/11/2018 Visit Diagnosis Plan: Encounter for [facility] adult medical examination with abnormal [...] : N76.0 12/11/2018 Appointment: Genesis Fernández [address] [place], [place] [address] Annual Well Visit 12/11/2018 Care Plan: RML ASSAY THYROID STIM HORMONE Pending 12/04/2018 Care Plan: RML ASSAY OF FREE THYROXINE Pe nding 12/04/2018 Care Plan: RML A1C HPLC LOINC : 40981-6 Pending 12/04/2018 Care Plan: RML LIPID PANEL LOINC : 78186 -1 Pending 12/04/2018 Care Plan: RML COMPREHEN METABOLIC PANEL LOINC : 81714-7 Pending 12/04/2018 Care Plan: QUEST CBC (INCLUDES DIFF/PLT) LOINC : 23495-8 Pending 12/04/2018 Visit Diagnosis Plan: Benign paroxysmal vertigo, bilat eral Discussion: Meclizine Vestibular Exercises To ER if worsens or develops neurological symptoms or will need CT scan if persists/worsens ICD-9 : 386.11 ICD-10 : H81.13 10/30/2018 Appointment: Jayna Vanessa WPtel: [phone] [phone] ACUTE ILLNESS 10/30/2018 Patient Education: VESTIBULAR EXCERCISES Completed 10/30/2018 Patient Education: meclizine- OptimizeRX Coupon [id number] Completed 10/30/2018 Appointment: Jayna Vanessa WPtel: [phone] [phone] US canceled due to mark going into [...] ICD-10 : R05 10/07/2018 Appointment: Stacey Feng [address] [place], [place] [phone] ACUTE ILLNESS 10/07/2018 Patient Education: doxycycline hyclate- OptimizeRX [facility] [phone] https://www.FIZZA.com/samplemd/resources/getResource/61/h566gum2-g917-989g-44 Completed 10/07/2018 Care Plan: RML ASSAY OF [...] M85.80 06/23/2018 Appointment: Jayna Vanessa WPtel: [phone] [phone] US FOLLOW UP 06/23/2018 Appointment: Jayna Vanessa WPtel: [phone] ER Follow UP 01/27/2018 Visit Diagnosis Plan: Hypothyroidism, unspecified Disc ussion: Lab discussed Increase Levothyroxine to 175mcg daily then recheck level in 6 weeks Follow Up: 6 weeks ICD-9 : 244.9 ICD-10 : E03.9 01/16/2018 Visit Diagnosis Plan: Mixed hyperlipidemia Discussion: Defers statin meds ICD-9 : 272.4 ICD-10 : E78.2 01/16/2018 Appointment: Jayna Vanessa WPtel: [address] [place], [place] [phone] FOLLOW UP 01/16/2018 Patient Education: Patient Medication Summary Completed 01/16/2018 Patient Education: Patient Medication Summary Completed 01/15/2018 Care Plan: RML COMPREHEN METABOLIC PANEL LOINC : 95739-9 Pending 01/15/2018 Care Plan: RML ASSAY THYROID STIM HORMONE Pending 01/15/2018 Care Plan: RML ASSAY OF FREE THYROXINE Pe nding 01/15/2018 Care Plan: RML LIPID PANEL LOINC : 88704 -1 Pending 01/15/2018 Care Plan: CBC Pending 01/15/2018 Care Plan: RML A1C HPLC LOINC : 44563-9 Pending 01/15/2018 Appointment: Jayna Vanessa WPtel: [address] [place] [phone] US CANCELED 12/26/2017 Appointment: Jayna Vanessa WPtel: [address] [place], [place] [phone] US CANCELED 10/28/2017 Visit Diagnosis Plan: Cervicalgia Discussion: xray ord ered of cervical spine and right shoulder. 40 mg kenalog/15 mg toradol prescribed to assist with pain. medrol dose pack prescribed to start tomorrow. instructed patient that if she d evelops worsening pain or no improvement, call or rtc. ICD-9 : 723.1 ICD-10 : M54.2 10/16/2017 Appointment: Genesis Fernández [address] [place], [place] [phone] ACUTE ILLNESS 10/16/2017 Patient Education: Patient Medication Summary Completed 10/16/2017 Care Plan: X-RAY EXAM NECK SPINE 4/5VWS cervical LOINC : 74525-6 Pending 10/16/2017 Visit Diagnosis Plan: Headache Discussion: Stat CT of head Dilated eye exam ICD-9 : 784.0 ICD-10 : R51 09/12/2017 Visit Diagnosis Plan: Dizziness and giddiness Discussi on: Check CBC,TSH, Free T4 now ICD-9 : 780.4 ICD-10 : R42 09/12/2017 Appointment: Jayna Vanessa WPtel: [phone] [phone] ACUTE ILLNESS 09/12/2017 Patient Education: Patient Medication Summary Completed 09/12/2017 Care Plan: CT HEAD/BRAIN W/O DYE LOINC : 60147-8 Pending 09/12/2017 Visit Diagnosis Plan: Cough Discussion: discussed cxra y and sputum results with patient and how they are negative for bacteria. patient restarted on her PPI to cover possiblity of GERD causing cough. instructed patient to contact her windlasser in [place] for them to evaluate. rtc with any new or worsening symptoms but continue with inhaler and nebulizer treatments as needed. ICD-9 : 786.2 ICD-10 : R05 08/20/2017 Appointment: Genesis Fernández [address] [place], [place] [phone] FOLLOW UP 08/20/2017 Patient Education: Patient Medication Summary Completed 08/20/2017 Visit Diagnosis Plan: COUGH Discussion: Check stat CXR Check Sputum culture ICD-9 : 786.2 ICD-10 : R05 08/13/2017 Appointment: Jayna Vanessa WPtel: [phone] [phone] ACUTE ILLNESS 08/13/2017 Patient Education: Patient Medication [...] Rest, Fluids... 07/29/2017 Appointment: Jayna Vanessa WPtel: [address] [place], [place] [phone] ACUTE ILLNESS 07/29/2017 Patient Education: Patient Medication [...] : J09.X2 07/25/2017 Appointment: Genesis Fernández [address] [place] [address] ACUTE ILLNESS 07/25/2017 Patient Education: Patient Medication [...] : M25.50 06/10/2017 Appointment: Jayna Vanessa WPtel: [address] [place], [place] [phone] ACUTE ILLNESS 06/10/2017 Patient Education: Patient Medication Summary Completed 06/10/2017 Appointment: Jayna Vanessa WPtel: [address] [place], [place] [phone] US Does not need appointment CANCELED 2016 Appointment: Jayna Vanessa WPtel: [address] [place], [place] [phone] US CANCELED 05/30/2017 Visit Diagnosis Plan: Acute bronchitis, unspecified Di scussion: prednisone, zpack and tessalon perles prescribed to assist with symptoms. call or RTC if no improvement. humidifier at night. hydrate well and rest. discussed side effects from prednisone including increased blood sugars and instructed to monitor. ICD-9 : 490 ICD-10 : J20.9 05/28/2017 Appointment: Genesis Fernández 504 [facility] ACUTE ILLNESS 05/28/2017 Patient Education: Patient Medication Summary Completed 05/28/2017 Visit Diagnosis Plan: Type 2 diabetes mellitus without complications Discussion: Continue current meds accuchecks daily ICD-9 : 250.00 ICD-10 : E11.9 04/04/2017 Visit Diagnosis Plan: Encounter for [facility] adult medical examination without abnormal findings Discussion: Flu and Pneumovax given Mamm ogram ordered Lab discussed ICD-9 : V70.9 ICD-10 : Z00.00 04/04/2017 Appointment: Jayna Vanessa WPtel: [phone] [phone] Annual Well Visit 04/04/2017 Patient Education: Patient Medication Summary Completed 04/04/2017 Care Plan: MAMMOGRAM SCREENING LOINC : 2 6347-5 Pending 04/04/2017 Patient Education: Patient Medication Summary Completed 03/21/2017 Care Plan: RML COMPREHEN METABOLIC PANEL LOINC : 22976-3 Pending 03/21/2017 Care Plan: RML ASSAY THYROID STIM HORMONE Pending 03/21/2017 Care Plan: RML ASSAY OF FREE THYROXINE Pe nding 03/21/2017 Care Plan: CBC Pending 03/21/2017 Care Plan: RML A1C HPLC LOINC : 34824-2 Pending 03/21/2017 Visit Diagnosis Plan: Mixed hyperlipidemia Discussion: Continue current meds Follow Up: 6 months ICD-9 : 272.4 ICD-10 : E78.2 11/28/2016 Visit Diagnosis Plan: Hypothyroidism, unspecified Disc ussion: Continue current dose ICD-9 : 244.9 ICD-10 : E03.9 11/28/2016 Visit Diagnosis Plan: Ikjvd-[id number]-eimqvwazcbs deficiency D iscussion: Continue weekly injections ICD-9 : 273.4 ICD-10 : E88.01 11/28/2016 Visit Diagnosis Plan: Sebaceous cyst Discussion: Emily daniel eal Discussed removal ICD-9 : 706.2 ICD-10 : L72.3 11/28/2016 Appointment: Jayna Vanessa WPtel: [phone] [phone] 6/6 rang and rang on home phone and mobile confirmed~sl FOLLOW UP 11/28/2016 Patient Education: Patient Medication Summary Completed 11/28/2016 Patient Education: Patient Medication Summary Completed 11/20/2016 Referral: Tom Mcrae WPtel: [facility] 440 [id number] US Referral Initiated 07/05/2016 Visit Plan: Start with CT abdomen/pelvis Will need EGD and Colonoscopy so will refer to Dr. Pina Obtain most recent lab results 06/05/2016 Appointment: Jayna Vanessa WPtel: [phone] [phone] ACUTE ILLNESS 06/05/2016 Patient Education: Patient Medication Summary Completed 06/05/2016 Care Plan: CT PELVIS W/O DYE LOINC : 361 08-9 Pending 06/05/2016 Care Plan: CT ABDOMEN W/O DYE LOINC : 36 103-0 Pending 06/05/2016 Care Plan: Referral Order SNOMED-CT : [phone] [id number] Pending 06/05/2016 Appointment: Jayna Vanessa WPtel: [phone] [phone] [facility] INJECTION 05/01/2016 Patient Education: Patient Medication Summary Completed 05/01/2016 Patient Education: Patient Medication Summary Completed 04/26/2016 Care Plan: RML COMPREHEN METABOLIC PANEL LOINC : 43921-4 Pending 04/26/2016 Care Plan: RML ASSAY THYROID STIM HORMONE Pending 04/26/2016 Care Plan: RML ASSAY OF FREE THYROXINE Pe nding 04/26/2016 Care Plan: RML A1C HPLC LOINC : 38619-1 Pending 04/26/2016 Referral: Aditya Stone WPtel: [address] [facility] [address] [id number] Arrival time is 10:00 Am~sl Appointment Confirme d 11/25/2015 Visit Plan: Had fasting lab done this AM Continue PT for right shoulder Continue current meds Referral to Dr. Temo Stone for incontinence 11/08/2015 Appointment: Jayna Vanessa WPtel: [phone] 11/06 confirmed-sp FOLLOW UP 11/08/2015 Patient Education: Patient Medication Summary Completed 11/08/2015 Appointment: Jayna Vanessa WPtel: [address] [place], [place] [phone] 10/19 rescheduled ~sl RESCHEDULED 10/24/2015 Appointment: Jayna Vanessa WPtel: [address] [place], [place] [phone] [place] 10/10rang and rang ~sl RESCHEDULED 6 Patient Education: Patient Medication Summary Completed 10/12/2015 Care Plan: RML COMPREHEN METABOLIC PANEL LOINC : 47920-7 Pending 10/12/2015 Care Plan: RML ASSAY THYROID STIM HORMONE Pending 10/12/2015 Care Plan: RML ASSAY OF FREE THYROXINE Pe nding 10/12/2015 Care Plan: RML LIPID PANEL LOINC : 73432 -1 Pending 10/12/2015 Care Plan: CBC Pending 10/12/2015 Care Plan: RML A1C HPLC LOINC : 40105-3 Pending 10/12/2015 Care Plan: VITAMIN D TOTAL (25 HYDROXY) P ending 10/12/2015 Appointment: Jayna Vanessa WPtel: [address] [place], [place] [phone] [place] CANCELED 09/22/2015 Visit Plan: Lab discussed Change thyroid med back to brand synthroid and recheck thyroid lab in 3mos 07/19/2015 Appointment: Jayna Vanessa WPtel: [facility]6 [phone] 07/18/15 appt confirmed cn FOLLOW UP 07/19 Patient Education: Patient Medication Summary Completed 07/19/2015 Patient Education: Patient Medication Summary Completed 07/12/2015 Visit Plan: Lab discussed Change synthro id to 150mcg all days but M, W, F will change to 175mcg Check Lab and fwup in 3mos Flu shot given 03/28/2015 Appointment: Jayna Vanessa WPtel: [address] [place], [place] [phone] 03/25 rang for 1:40 seconds 03/28/ appt confirmed cn FOLLOW UP 03/28/2015 Patient Education: Patient Medication Summary Completed 03/28/2015 Patient Education: Patient Medication Summary Completed 03/21/2015 Visit Plan: Continuue fluoxetine at high er dose Increase synthroid to 150mcg as ordered Decrease propranolol to 20mg po BID Check thyroid lab and fwup in 2mos Prevnar 13 given 02/08/2015 Appointment: Jayna Vanessa WPtel: [address] [place], [place] [phone] FOLLOW UP 02/08/2015 Patient Education: Patient Medication Summary Completed 02/08/2015 Visit Plan: Check CBC, CMP, TSH, Free T4 , uric acid, lactate now Increase fluoxetine to 40mg daily Recheck in 1month Notify if worsening Culture urine 01/11/2015 Appointment: Jayna Vanessa WPtel: [address] [place], [place] [phone] ACUTE ILLNESS 01/11/2015 Patient Education: Patient Medication Summary Completed 01/11/2015 Visit Plan: Lab discussed Accuchecks lucian ly Medrol dose pack Rx for back brace 11/24/2014 Appointment: Jayna Vanessa WPtel: [address] [place], [place] [phone] 11/23 confirmed -mf FOLLOW UP 11/24/2014 Patient Education: Patient Medication Summary Completed 11/24/2014 Appointment: Galina Leos WPtel: [address] [place], [place] [phone] ER Follow UP 11/19/2014 Patient Education: Patient Medication Summary Completed 11/19/2014 Appointment: Conchita Capone WPtel: [address] [place] [address] ACUTE ILLNESS 10/27/2014 Patient Education: Patient Medication Summary Completed 10/27/2014 Patient Education: [facility] - Saving AutoInj - 18+ - Dynamic Portal ID Completed 10/27/2014 Appointment: Conchita Capone WPtel: [address] [place], [place] [phone] ACUTE ILLNESS 09/23/2014 Patient Education: Patient Medication Summary Completed 09/23/2014 Visit Plan: Lab discussed Continue curre nt meds 07/28/2014 Appointment: Jayna Vanessa WPtel: [address] [place], [place] [phone] 07/27 FOLLOW UP 07/28/2014 Patient Education: Patient Medication Summary Completed 07/28/2014 Patient Education: Patient Medication Summary Completed 07/21/2014 Patient Education: Patient Medication Summary Completed 04/27/2014 Appointment: Jayna Vanessa WPtel: [address] [place], [place] [phone] 03/29 FOLLOW UP 03/30/2014 Patient Education: Patient Medication Summary Completed 03/30/2014 Patient Education: [facility] - Saving AutoInj - 18+ - Dynamic Portal ID Completed 03/30/2014 Visit Plan: Lab discussed DC Vytorin Tri al of Lipitor 80mg q HS Continue Trilipix Check Lipids/CMP/thyroid and HbA1C in 4mos then fwup 11/24/2013 Appointment: Jayna Vanessa WPtel: [address] [place], [place] [phone] FOLLOW UP 11/24/2013 Patient Education: Patient Medication Summary Completed 11/24/2013 Patient Education: [facility] - Saving AutoInj - 18+ - Dynamic Portal ID Completed 11/24/2013 Visit Plan: Lab discussed Daily accuchec ks Cont current meds 08/25/2013 Appointment: Jayna Vanessatel: [address] [place], [place] [phone] 08/24 FOLLOW UP 08/25/2013 Patient Education: Patient Medication Summary Completed 08/25/2013 Appointment: Jayna Vanessa WPtel: [address] [place], [place] [phone] FOLLOW UP 08/05/2013 Visit Plan: Continue Wellbutrin/Fluoxeti ne Fasting lab and fwup in 2mos 06/29/2013 Appointment: Jayna Vanessa WPtel: [address] [place], [place] [phone] 06/26 left [facility] FOLLOW UP 06/29/2013 Patient Education: Patient Medication Summary Completed 06/29/2013 Visit Plan: Increase Wellbutrin to 300mg daily Add fluoxetine 20mg daily 05/26/2013 Appointment: Jayna Vanessa WPtel: [address] [place], [place] [phone] FOLLOW UP 05/26/2013 Patient Education: Patient Medication Summary Completed 05/26/2013 Visit Plan: OK to proceed with planned [facility] surgery next week Continue current meds Check fasting lab--CBC, CMP, TSH, free T4, HbA1C, Lipids, Vit D at end of this week prior to surgery 05/06/2013 Appointment: Jayna Vanessa WPtel: [address] [place], [place] [phone] FOLLOW UP 05/06/2013 Patient Education: Patient Medication Summary Completed 05/06/2013 Appointment: Jayna Vanessa WPtel: [address] [place], [place] [phone] ACUTE ILLNESS 04/23/2013 Patient Education: Patient Medication Summary Completed 04/23/2013 Patient Education: [facility] - Saving AutoInj - 18+ - Dynamic Portal ID Completed 04/23/2013 Visit Plan: Decrease Lasix to 20mg daily Leave potassium at 20meq daily Check Chem 7 in 1wk 03/31/2013 Appointment: Jayna Vanessa WPtel: [address] [place], [place] [phone] FOLLOW UP 03/31/2013 Patient Education: Patient Medication Summary Completed 03/31/2013 Appointment: Conchita Capone WPtel: [address] [place], [place] [phone] ACUTE ILLNESS 03/05/2013 Patient Education: Patient Medication Summary Completed 03/05/2013 Visit Plan: Lab discussed Continue curre nt meds Pt is going to start allergy injections Go for port placement to continue prolastin infusions 02/04/2013 Appointment: Jayna Vanessa WPtel: [address] [place], [place] [phone] ACUTE ILLNESS 02/04/2013 Patient Education: Patient Medication Summary Completed 02/04/2013 Visit Plan: 2-D ECHO discussed See Pulmo nology Pt states cough had went away with allergy meds and then has came back Continue allergy meds and add pepcid BID Discussed allergy testing 11/27/2012 Appointment: Jayna Vanessa WPtel: [phone] FOLLOW UP 11/27/2012 Patient Education: Patient Medication Summary Completed 11/27/2012 Visit Plan: PFTS discussed Proceed with 2-D ECHO and pulmonology evaluation Pt was concerned propranolol could be cause but discussed this is likely not culpri HOMERO was DCed in 2009, is on PPI, has seen ENT, will restart allergy meds--may need allergy testing 11/11/2012 Appointment: Jayna Vanessa WPtel: [phone] FOLLOW UP 11/11/2012 Patient Education: Patient Medication Summary Completed 11/11/2012 Visit Plan: Hold metformin Check CMP, Li pids, TSH, Free T4, HbA1C Check PFTs 10/20/2012 Appointment: Jayna Vanessa WPtel: [address] [place], [place] [phone] 10/17 left message FOLLOW UP 10/20/2012 Patient Education: Patient Medication Summary Completed 10/20/2012 Appointment: Jayna Vanessa WPtel: [address] [place], [place] [phone] 10/13 FOLLOW UP 10/14/2012 Visit Plan: Discussed fluids and rest. W ill monitor for worsening symptoms/fever. Azithromycin, medrol dose pack and refil on cough syrup. Pt. will notify if symptoms worsen or persist. 09/03/2012 Appointment: Lizzie Kelly WPtel: [address] [place], [place] [phone] ACUTE ILLNESS 09/03/2012 Patient Education: Patient Medication Summary Completed 09/03/2012 Visit Plan: discussed that symptoms star edvin around Lion time. Will begin culturelle BID and monitor for fever or worsening symptoms. Fluid intake important. CBC, CMP, sed rate and stool studies. Order written for Mag lab. 07/23/2012 Appointment: Lizzie Kelly WPtel: [address] [place], [place] [phone] ACUTE ILLNESS 07/23/2012 Patient Education: Patient Medication Summary Completed 07/23/2012 Visit Plan: Increase Metformin to 1000mg po BID Accuchecks daily Continue rest of meds at current dose and low-fat, low-sugar diet with increased exercise Check fasting lab in 4mos Restart Nexium 05/20/2012 Appointment: Jayna Vanessa WPtel: [address] [place], [place] [phone] patient had bad night so missed 05/06 appt...left voicemail 05/19 FOLLOW UP 05/20/2012 Patient Education: Patient Medication Summary Completed 05/20/2012 Appointment: Jayna Vanessa WPtel: [address] [place], [place] [phone] patient had bad night so missed 05/06 appt time. cn FOLLOW UP 05/06/2012 Appointment: Galina Leos WPtel: [address] [place], [place] [phone] ACUTE ILLNESS 04/04/2012 Patient Education: Patient Medication Summary Completed 04/04/2012 Visit Plan: Cryotherapy as above 02/20/2012 Appointment: Jayna Vanessa WPtel: [address] [place], [place] [phone] 02/18 OFFICE SURGERY 02/20/2012 Patient Education: Patient Medication Summary Completed 02/20/2012 Visit Plan: Increase Metfromin to 1000mg daily Continue all other current meds 01/02/2012 Appointment: Jayna Vanessa WPtel: [address] [place], [place] [phone] FOLLOW UP 01/02/2012 Patient Education: Patient Medication Summary Completed 01/02/2012 Appointment: Lizzie Kelly WPtel: [address] [place] [address] ACUTE ILLNESS 09/04/2011 Patient Education: Patient Medication Summary Completed 09/04/2011 Visit Plan: Finish Keflex Proceed with c olonoscopy Increase aspirin to 325mg daily for next 2wks Add Vimovo 20/500mg po Daily 08/14/2011 Appointment: Jayna Vanessa WPtel: [address] [place], [place] [phone] [facility] Follow Up 08/14/2011 Patient Education: Patient Medication Summary Completed 08/14/2011 Appointment: Lizzie Kelly WPtel: [address] [place], [place] [phone] ACUTE ILLNESS 07/31/2011 Patient Education: Patient Medication Summary Completed 07/31/2011 Visit Plan: Doxy and steroids. Codeine/g uiaf cough syrup. Pt. will monitor for worsening symptoms and notify if fever occurs. Encouraged rest and fluids. 07/25/2011 Appointment: Lizzie Kelly WPtel: [address] [place], [place] [phone] ACUTE ILLNESS 07/25/2011 Patient Education: Patient Medication Summary Completed 07/25/2011 Visit Plan: Check full lab in 3mos Radha nue with all current meds Continue PT for knee 07/12/2011 Appointment: Jayna Vanessa WPtel: [address] [place], [place] [phone] FOLLOW UP 07/12/2011 Patient Education: Patient Medication Summary Completed 07/12/2011 Visit Plan: Continue symbicort for 2 mor e weeks 05/09/2011 Appointment: Jayna Vanessa WPtel: [address] [place], [place] [phone] FOLLOW UP 05/09/2011 Patient Education: Patient Medication Summary Completed 05/09/2011 Appointment: Jayna Vanessa WPtel: [address] [place], [place] [phone] ER Follow UP 05/02/2011 Patient Education: Patient Medication Summary Completed 05/02/2011 Visit Plan: Pt. has recently finished ro und of Cefdinir with no improvement. Chest x-ray, CBC, CMP and mycoplasma order given to pt. Pt. will start Doxycycline. 04/25/2011 Appointment: Lizzie Kelly WPtel: [address] [place] [address] FOLLOW UP 04/25/2011 Patient Education: Patient Medication Summary Completed 04/25/2011 Appointment: Lizzie Kelly WPtel: [address] [place] [address] ACUTE ILLNESS 04/04/2011 Patient Education: Patient Medication Summary Completed 04/04/2011 Appointment: Lizzie Kelly WPtel: [address] [place], [place] [phone] ACUTE ILLNESS 04/03/2011 Visit Plan: Decrease Synthroid to 150mcg daily Repeat TSH and Free T4 in 2mos Knee injection as above 03/01/2011 Appointment: Jayna Vanessa WPtel: [address] [place], [place] [phone] 03/01/2011 Patient Education: Patient Medication Summary Completed 03/01/2011 Visit Plan: Increase Synthroid to 175mcg po daily Check TSH, Free T4 in 8wks Injection given to knee as above Continue Pt 01/04/2011 Appointment: Jayna Vanessa WPtel: [address] [place], [place] [phone] FOLLOW UP 01/04/2011 Patient Education: Patient Medication Summary Completed 01/04/2011 Visit Plan: Septra DS, Mupirocin topical . Pt. will observe wound and report worsening symptoms. 12/07/2010 Appointment: Lizzie Kelly WPtel: [address] [place], [place] [phone] ACUTE ILLNESS 12/07/2010 Patient Education: Patient Medication Summary Completed 12/07/2010 Visit Plan: Increase Synthroid to 150mcg po daily Add Metformin Diet and exercise discussed at length again Repeat thyroid US Add Vit D level Will see if polydipsia improves with metformin 10/09/2010 Appointment: Jayna Vanessa WPtel: [address] [place], [place] [phone] FOLLOW UP 10/09/2010 Patient Education: Patient Medication Summary Completed 10/09/2010 Visit Plan: Increase Synthroid to 125mcg daily Decrease Vit D 50,000 u three times a week Discussed HRT Proceed with sleep study Fwup pending sleep study results 08/07/2010 Appointment: Jayna Vanessa WPtel: [address] [place], [place] [phone] FOLLOW UP 08/07/2010 Patient Education: Patient Medication Summary Completed 08/07/2010 Visit Plan: Decrease Synthroid to 100mcg QD Check thyroid lab in 2mos Check estradiol levels in 2mos--discussed HRT Increase Vit D 50,000u to 1 daily M-F 06/06/2010 Appointment: Jayna Vanessa WPtel: [address] [place], [place] [phone] ACUTE ILLNESS 06/06/2010 Patient Education: Patient Medication Summary Completed 06/06/2010 Visit Plan: Injections to knees as above 04/12/2010 Appointment: Jayna Vanessal: [address] [place], [place] [phone] OFFICE SURGERY 04/12/2010 Patient Education: Patient Medication Summary Completed 04/12/2010 Visit Plan: Decrease Synthroid to 175mcg QD Check lab in 2mos Change daily Vit D to weekly 03/20/2010 Appointment: Jayna Vanessa WPtel: [address] [place], [place] [phone] ESTABLISHED PATIENT 03/20/2010 Patient Education: Patient Medication Summary Completed 03/20/2010 Appointment: Jayna Vanessa WPtel: [address] [place], [place] [phone] ACUTE ILLNESS 01/30/2010 Patient Education: Patient Medication Summary Completed 01/30/2010 Appointment: Jayna Vanessa WPtel: [address] [place], [place] [phone] ACUTE ILLNESS 01/09/2010 Patient Education: Patient Medication Summary Completed 01/09/2010 Appointment: Jayna Vanessa WPtel: [address] [place], [place] [phone] BP CHECK 11/07/2009 Patient Education: Patient Medication Summary Completed 11/07/2009 Appointment: Jayna Vanessa WPtel: [address] [place], [place] [phone] OFFICE SURGERY 10/26/2009 Patient Education: Patient Medication Summary Completed 10/26/2009 Appointment: Lizzie Kelly WPtel: [address] [place], [place] [phone] OFFICE SURGERY 10/17/2009 Patient Education: Patient Medication [...] appnt. 10/04/2009 Appointment: Lizzie Kelly WPtel: [address] [place], [place] [phone] ACUTE ILLNESS 10/04/2009 Patient Education: Patient Medication Summary Completed 10/04/2009 Visit Plan: E-scribed refils. Pt. report s that she normally has lab work drawn and orders are given (faxed) to her normal lab facility by Patricia. Pt. states her migraine headaches have abated for now and that she is going to see her migraine doctor in [place] in the near future(Dr Cook) Pt will seek re-eval as necessary for acute issues. 09/21/2009 Appointment: Lizzie Kelly WPtel: [address] [place], [place] [phone] [place] CHECK UP 09/21/2009 Patient Education: Patient Medication Summary Completed 09/21/2009 Appointment: Lizzie Kelly WPtel: [address] [place], [place] [phone] [place] CHECK UP 09/20/2009 Appointment: Lizzie Kelly WPtel: [address] [place], [place] [phone] [place] FOLLOW UP 09/19/2009 Referral: Alf Lang WPtel: #[address] [facility] [place] Referral Appointment Requested Referral: Singh Pina WPtel: [address] [facility] [place] Referral Appointment Requested Referral: Aditya Stone WPtel: [address] [facility] [address] [id number] [place] Referral Appointment Requested Instructions Comment Date [...] shoulder Continue current meds Referral to Dr. Tmeo Stone for incontinence 11/08/2015 . Lab discussed [...] going to see her migraine doctor in [place] in the near future(Dr Cook) Pt will [...]
[2022-09-10] MEDS ORDERED: MEROPENEM 1,000 MG in NS (IVPB) 100 ML IV SCH (17:15)
[2022-09-10] MEDS ORDERED: ACETAMINOPHEN 325 MG TABLET PO PRN (17:15)
[2022-09-10] MEDS ORDERED: ONDANSETRON 4 MG/2 ML (SDV) Z0FRAN IV PRN (17:15)
[2022-09-10] MEDS ORDERED: PATIENT MAY USE OWN MEDS, ALL PO SCH (17:15)
[2022-09-10 17:16] VITALS: BP 123/85
[2022-09-10 17:49] LABS: BASOPHILS # (AUTO) 0.1 10^3/uL (0.0-0.1); BASOPHILS % (AUTO) 1 % (0-10); EOSINOPHILS # (AUTO) 0.2 10^3/uL (0.0-0.3); EOSINOPHILS % (AUTO) 2 % (0-10); HEMATOCRIT 39 % (35-52); HEMOGLOBIN 13.2 g/dL (11.5-16.0); LYMPHOCYTES # (AUTO) 2.2 10^3/uL (1.0-4.0); LYMPHOCYTES % (AUTO) 24 % (12-44); MEAN CORPUSCULAR HEMOGLOBIN 29 pg (25-34); MEAN CORPUSCULAR HGB CONC 34 g/dL (32-36); MEAN CORPUSCULAR VOLUME 88 fL (80-99); MEAN PLATELET VOLUME 10.8 fL (9.0-12.2); MONOCYTES # (AUTO) 0.8 10^3/uL (0.0-1.0); MONOCYTES % (AUTO) 9 % (0-12); NEUTROPHILS # (AUTO) 5.8 10^3/uL (1.8-7.8); NEUTROPHILS % (AUTO) 64 % (42-75); PLATELET COUNT 249 10^3/uL (130-400); WHITE BLOOD COUNT 9.1 10^3/uL (4.3-11.0)
[2022-09-10 17:58] LABS: ALBUMIN 3.9 GM/DL (3.2-4.5); POTASSIUM 3.6 MMOL/L (3.6-5.0)
[2022-09-10 17:59] LABS: CALCIUM 8.8 MG/DL (8.5-10.1)
[2022-09-10] MEDS ORDERED: MEROPENEM 500 MG/NS 100 ML IVPB IV SCH ×2 (18:00)
[2022-09-10 18:01] LABS: TOTAL PROTEIN 6.7 GM/DL (6.4-8.2)
[2022-09-10 18:02] LABS: BILIRUBIN,TOTAL 0.8 MG/DL (0.1-1.0)
[2022-09-10 18:04] LABS: CREATININE SERUM 1.23 MG/DL (0.60-1.30)
[2022-09-10] MEDS: NS IV 1000 ML 1,000 ML IV SCH (18:06)
[2022-09-10] MEDS: ENOXAPARIN 40 MG/0.4 ML (LOVENOX) SYR SC SCH (18:11)
[2022-09-10 18:15] LABS: ERYTHROCYTE SEDIMENTATION RATE 17 MM/HR (0-30)
[2022-09-10 19:51] VITALS: BP 111/62
[2022-09-10 23:50] VITALS: BP 123/59
[2022-09-11] MEDS: MEROPENEM 500 MG/NS 100 ML IVPB IV SCH ×6 (02:04→17:24)
[2022-09-11] MEDS: NS IV 1000 ML 1,000 ML IV SCH ×3 (02:06→17:24)
[2022-09-11 04:30] VITALS: BP 132/64
[2022-09-11] MEDS: LEVOTHYROXINE 150 MCG (LEVOTHROID) TAB PO SCH (04:35)
[2022-09-11 07:49] VITALS: BP 144/63
--- NOTE | 2022-09-11 07:53 | History & Physical ---
SLAVA FISCHER 09/11/22 0753: History of Present Illness History of Present Illness Reason for visit/HPI CC: UTI and dehydration HPI: 72yo female with a PMH of chronic pyelonephritis presented to Dr. Vanessa's clinic approximately two weeks ago with complaints of dysuria and mild urinary retention. She was given nitrofurantoin to treat. She came back to clinic on 09/10/2022 with complaints of worsening symptoms of dysuria and retention as well as feeling lightheaded, dizzy, and nauseas. In the past two weeks she has had a decrease intake of food and water due to her worsening nausea and dry mouth. She is not in any pain this morning. She has had many episodes similar to this in the past, prior to this episode her last infection was approximately a month ago. Patient also complained of new chest pain this AM. Date of Admission Sep 10, 2022 at 16:54 Date Seen by a Provider: Sep 11, 2022 Time Seen by a Provider: 07:35 I consulted on this patient on 09/11/22 07:48 Attending Physician Brenda Vanessa DO Admitting Physician Admitting Physician: Brenda Vanessa DO Attending Physician: Brenda Vanessa DO Consult Allergies and Home Medications Allergies Coded Allergies: ampicillin (Verified Allergy, Unknown, 09/10/22) diazepam (Verified Allergy, Unknown, 09/10/22) diphenhydramine (Verified Allergy, Unknown, seizures, 09/10/22) propoxyphene HCl (Verified Allergy, Unknown, 09/10/22) Patient Home Medication List Acetaminophen (Tylenol Extra Strength) 500 Mg Tablet, 500-1,000 MG PO Q8H PRN for PAIN-MILD (1-4), (Reported) Entered as Reported by: TASNEEM PETIT on 11/01/21 1235 Albuterol Sulfate (Proventil Hfa) 6.7 Gm Hfa.aer.ad, 2 PUFF INH Q6H PRN for SHORTNESS OF BREATH, (Reported) Entered as Reported by: TASNEEM PETIT on 11/01/21 1235 Albuterol Sulfate (Albuterol Sulfate) 2.5 Mg/0.5 Ml Vial.neb, 2.5 MG INH Q4H Prescribed by: BRENDA VANESSA on 11/02/21 1239 Azithromycin (Azithromycin) 250 Mg Tablet, 250 MG PO DAILY Prescribed by: BRENDA VANESSA on 11/02/21 1234 Baclofen (Baclofen) 10 Mg Tablet, 5-10 MG PO Q72H PRN for MUSCLE SPASMS, (Reported) Entered as Reported by: TASNEEM PETIT on 11/01/21 1235 Benzonatate (Tessalon Perles) 100 Mg Capsule, 100 MG PO TID PRN for COUGH Prescribed by: BRENDA VANESSA on 11/02/21 1242 Cefdinir (Cefdinir) 300 Mg Capsule, 300 MG PO BID Prescribed by: BRENDA VANESSA on 11/02/21 1239 Citalopram Hydrobromide (Citalopram HBr) 10 Mg Tablet, 10 MG PO BID, (Reported) Entered as Reported by: TASNEEM PETIT on 11/01/21 1235 Fluticasone Propionate (Fluticasone Propionate) 50 Mcg/Actuation [place].susp, 1 SPRAY NSEACH DAILY, (Reported) Entered as Reported by: TASNEEM PETIT on 11/01/21 1235 Levothyroxine Sodium (Levothyroxine Sodium) 150 Mcg Tablet, 150 MG PO DAILY, (Reported) Entered as Reported by: TASNEEM PETIT on 11/01/21 1235 Mv-Mn/Folic Acid/Calcium/Vit K (Women's 50 Plus Multivit Tab) 1 Each Tablet, 1 EACH PO DAILY, (Reported) Entered as Reported by: BRADFORD CURRY on 01/25/20 1344 Pantoprazole Sodium (Pantoprazole Sodium) 40 Mg Tablet.dr, 40 MG PO DAILY, (Reported) Entered as Reported by: TASNEEM PETIT on 11/01/21 1235 Prednisone (Prednisone) 20 Mg Tab, 20 MG PO BID Prescribed by: BRENDA VANESSA on 11/02/21 1241 Propranolol HCl (Propranolol HCl) 20 Mg Tablet, 20 MG PO BID, (Reported) Entered as Reported by: BRADFORD CURRY on 01/25/20 1344 Tramadol HCl (Tramadol HCl) 50 Mg Tablet, 50-100 MG PO Q6H PRN for PAIN-SEVERE (8-10), (Reported) Entered as Reported by: TASNEEM PETIT on 11/01/21 1235 Past Iskfqiz-Qskbmp-Lxszif Hx Patient Social History Tobacco Use?: No Smoking Status: Never a Smoker Use of E-Cig and/or Vaping dev: No Substance use?: No Alcohol Use?: No Pt feels they are or have been: No Immunizations Up To Date Date of Influenza Vaccine: Apr 28, 2014 First/Initial COVID19 Vaccinat: SPRING 2020 Second COVID19 Vaccination Sarmad: SPRING 2020 Date of Pneumonia Vaccine: Jun 17, 2011 Seasonal Allergies Seasonal Allergies: Yes Current Status status: No status: No Advance Directives: No Communicates: Verbally Primary Language: Syrian Preferred Spoken Language: Syrian Is interpretation needed?: No Implanted or Applied Medical D: Central venous access Past Medical History Surgeries: Abdominal, Gallbladder, Hysterectomy, Orthopedic Chronic Bronchitis, Emphysema (alpha 1 antitrypsin deficiency) Gastroesophageal Reflux, Diverticulosis Hypothyroidsim Glaucoma Anxiety Blood Disorders: No Family Medical History Cancer (father had lung cancer), Hypertension (mom and dad), Other Conditions/Hx (mother also had chronic UTIs) Review of Systems Constitutional: dizziness; No fever; weakness EENTM: No blurred vision, No double vision, No vision loss Respiratory: cough; No short of breath, No stridor, No wheezing Cardiovascular: chest pain; No palpitations Gastrointestinal: abdominal pain (claims she is diffusely tender, worse in the suprapubic region), loss of appetite, nausea; No vomiting Genitourinary: dysuria, frequency; No hematuria; pain Psychiatric/Neurological: Anxiety Physical Exam Vital Signs Vital Signs - First Documented 09/10/22 17:16 Temp 35.9 Pulse 78 Resp 19 B/P (MAP) 123/85 (98) Pulse Ox 96 O2 Delivery Room Air Capillary Refill : Height, Weight, BMI Height: 5'7" Weight: 205lbs. oz. 92.511560nz; 34.94 BMI Method:Stated General Appearance: No Apparent Distress, Obese HEENT: PERRL/EOMI Neck: Non Tender, Supple Respiratory: Lungs Clear, Normal Breath Sounds, No Accessory Muscle Use, No Respiratory Distress Cardiovascular: Regular Rate, Rhythm, No Gallop, No Murmur, Normal Peripheral Pulses Gastrointestinal: Soft, Tenderness (suprapubic) Back: CVA Tenderness (L); No CVA Tenderness (R) Extremity: Non Tender, No Calf Tenderness Neurologic/Psychiatric: Alert, Oriented x3 Skin: Normal Color, Warm/Dry Lymphatic: No Adenopathy (cervical) Assessment/Plan Assessment and Plan UTI Meropenem 100ml @200ml/hr Will give IV Abx for 48 hours Dehydration Normal saline 1,000ml @ 125ml/hr Chest Pain Obtain Troponin, CK-MB Obtain EKG Hyponatremia Normal saline 1,000ml @ 125ml/hr Monitor with AM labs Nausea Zofran 4mg q6h PRN Hypothyroidism Levothyroxine 150mcg DVT prophylaxis with lovemiguelx BRENDA VANESSA DO 09/11/22 0840: Allergies and Home Medications Allergies Coded Allergies: ampicillin (Verified Allergy, Unknown, 09/10/22) diazepam (Verified Allergy, Unknown, 09/10/22) diphenhydramine (Verified Allergy, Unknown, seizures, 09/10/22) propoxyphene HCl (Verified Allergy, Unknown, 09/10/22) Patient Home Medication List Home Medication List Reviewed: Yes Acetaminophen (Tylenol Extra Strength) 500 Mg Tablet, 500-1,000 MG PO Q8H PRN for PAIN-MILD (1-4), (Reported) Entered as Reported by: TASNEEM PETIT on 11/01/21 1235 Albuterol Sulfate (Proventil Hfa) 6.7 Gm Hfa.aer.ad, 2 PUFF INH Q6H PRN for SHORTNESS OF BREATH, (Reported) Entered as Reported by: TASNEEM PETIT on 11/01/21 1235 Albuterol Sulfate (Albuterol Sulfate) 2.5 Mg/0.5 Ml Vial.neb, 2.5 MG INH Q4H Prescribed by: BRENDA VANESSA on 11/02/21 1239 Azithromycin (Azithromycin) 250 Mg Tablet, 250 MG PO DAILY Prescribed by: BRENDA VANESSA on 11/02/21 1234 Baclofen (Baclofen) 10 Mg Tablet, 5-10 MG PO Q72H PRN for MUSCLE SPASMS, (Reported) Entered as Reported by: TASNEEM PETIT on 11/01/21 1235 Benzonatate (Tessalon Perles) 100 Mg Capsule, 100 MG PO TID PRN for COUGH Prescribed by: BRENDA VANESSA on 11/02/21 1242 Cefdinir (Cefdinir) 300 Mg Capsule, 300 MG PO BID Prescribed by: BRENDA VANESSA on 11/02/21 1239 Citalopram Hydrobromide (Citalopram HBr) 10 Mg Tablet, 10 MG PO BID, (Reported) Entered as Reported by: TASNEEM PETIT on 11/01/21 1235 Fluticasone Propionate (Fluticasone Propionate) 50 Mcg/Actuation [place].susp, 1 SPRAY NSEACH DAILY, (Reported) Entered as Reported by: TASNEEM PETIT on 11/01/21 1235 Levothyroxine Sodium (Levothyroxine Sodium) 150 Mcg Tablet, 150 MG PO DAILY, (Reported) Entered as Reported by: TASNEEM PETIT on 11/01/21 1235 Mv-Mn/Folic Acid/Calcium/Vit K (Women's 50 Plus Multivit Tab) 1 Each Tablet, 1 EACH PO DAILY, (Reported) Entered as Reported by: BRADFORD CURRY on 01/25/20 1344 Pantoprazole Sodium (Pantoprazole Sodium) 40 Mg Tablet.dr, 40 MG PO DAILY, (Reported) Entered as Reported by: TASNEEM PETIT on 11/01/21 1235 Prednisone (Prednisone) 20 Mg Tab, 20 MG PO BID Prescribed by: BRENDA VANESSA on 11/02/21 1241 Propranolol HCl (Propranolol HCl) 20 Mg Tablet, 20 MG PO BID, (Reported) Entered as Reported by: BRADFORD CURRY on 01/25/20 1344 Tramadol HCl (Tramadol HCl) 50 Mg Tablet, 50-100 MG PO Q6H PRN for PAIN-SEVERE (8-10), (Reported) Entered as Reported by: TASNEEM PETIT on 11/01/21 1235 Assessment/Plan Admission Diagnosis Admission Status: Inpatient Order (span 2 midnights) Reason for Inpatient Admission: Needs 24hrs of IVFs and IV abx Supervisory-Addendum Brief Verification & Attestation Participated in pt care: history, physical Personally performed: exam, history, supervision of care Care discussed with: Medical Student Procedures: n/a Results interpretation: Verified all documentation Verification and Attestation of Medical Student E/M Service A medical student performed and documented this service in my presence. I reviewed and verified all information documented by the medical student and made modifications to such information, when appropriate. I personally performed the physical exam and medical decision making. Brneda Vanessa, Sep 11, 2022,08:39 SLAVA FISCHER Sep 11, 2022 07:53 BRENDA VANESSA DO Sep 11, 2022 08:40
[2022-09-11] MEDS: PANTOPRAZOLE 40 MG (PROTONIX) VIAL IV SCH (09:19)
[2022-09-11 09:29] LABS: CREATINE KINASE MB 0.8 NG/ML (<6.6)
[2022-09-11] MEDS ORDERED: NITR100C10 PO (10:43)
[2022-09-11] MEDS ORDERED: ASPI-1238 PO (10:43)
[2022-09-11] MEDS ORDERED: BUPR300T98 PO (10:43)
[2022-09-11] MEDS ORDERED: SUMA100T3 PO (10:43)
[2022-09-11] MEDS ORDERED: CHOL-34 PO (10:43)
[2022-09-11] MEDS ORDERED: HYDR200T46 PO (10:43)
[2022-09-11 11:42] VITALS: BP 134/84
[2022-09-11 15:46] VITALS: BP 137/66
[2022-09-11] MEDS: ENOXAPARIN 40 MG/0.4 ML (LOVENOX) SYR SC SCH (17:24)
[2022-09-11 19:53] VITALS: BP 154/67
[2022-09-11 23:35] VITALS: BP 161/69
[2022-09-12] MEDS: NS IV 1000 ML 1,000 ML IV SCH (01:56)
[2022-09-12] MEDS: MEROPENEM 500 MG/NS 100 ML IVPB IV SCH ×4 (01:56→08:49)
[2022-09-12 04:20] VITALS: BP 123/80
[2022-09-12] MEDS: LEVOTHYROXINE 150 MCG (LEVOTHROID) TAB PO SCH (05:34)
--- NOTE | 2022-09-12 07:26 | Discharge Summary ---
SLAVA FISCHER 09/12/22 0726: Diagnosis/Chief Complaint Date of Admission Sep 10, 2022 at 16:54 Date of Discharge September 12, 2022 Discharge Date: Sep 12, 2022 Admission Diagnosis Admission Diagnosis UTI Dehydration Discharge Diagnosis Multi-drug resistant E. Coli Positive UTI Dehydration Chest Pain Hyponatremia Nausea Hypothyroidism Reason Hospital Visit CC: UTI and dehydration HPI: 72yo female with a PMH of chronic pyelonephritis presented to Dr. Vanessa's clinic approximately two weeks ago with complaints of dysuria and mild urinary retention. She was given nitrofurantoin to treat. She came back to clinic on 09/10/2022 with complaints of worsening symptoms of dysuria and retention as well as feeling lightheaded, dizzy, and nauseas. In the past two weeks she has had a decrease intake of food and water due to her worsening nausea and dry mouth. She is not in any pain this morning. She has had many episodes similar to this in the past, prior to this episode her last infection was approximately a month ago. Patient also complained of new chest pain this AM. Discharge Summary Hospital Course Hospital Course 72yo female with a PMH of chronic pyelonephritis presented to Dr. Vanessa's cl in approximately two weeks ago with complaints of dysuria and mild urinary retention. She was given nitrofurantoin to treat. She came back to clinic on 09/10/2022 with complaints of worsening symptoms of dysuria and retention as well as feeling lightheaded, dizzy, and nauseas. In the past two weeks she had a decrease intake of food and water due to her worsening nausea and dry mouth. She has had many episodes similar to this in the past requiring antibiotics, prior to this episode her last infection was approximately a month ago. A urine culture was obtained prior to admission which showed susceptibility to meropenem which was started upon admission. The patient was also dehydrated with hyponatremia, which was managed with normal saline. The first morning of the patient admission she complained of chest pain that did not radiate. An EKG, troponin, and CK-MB were all negative indicating no acute pathology. Zofran was given for the patient's nausea, DVT prophylaxis was achieved with lovenox. The patient also has a PMH of hypothyroidism for which we continued her home medication of levothyroxine. She will be discharged to home today with instructions to follow up in Dr. Vanessa's clinic in one week so we can repeat the UA for proof of cure. Labs Laboratory Tests 09/10/22 17:30: Sodium Level 133L, C-Reactive Protein High Sensitivity 11.21H 09/11/22 08:52: Procedures None. Discharge Physical Examination Allergies: Coded Allergies: ampicillin (Verified Allergy, Unknown, 09/10/22) diazepam (Verified Allergy, Unknown, 09/10/22) diphenhydramine (Verified Allergy, Unknown, seizures, 09/10/22) propoxyphene HCl (Verified Allergy, Unknown, 09/10/22) Vitals & I&Os Vital Signs Date Time Temp Pulse Resp B/P (MAP) Pulse Ox O2 Delivery O2 Flow Rate FiO2 09/12/22 08:07 35.9 93 20 142/87 (105) 94 Room Air General Appearance: Alert, Oriented X3 HEENT: PERRLA, EOMI Respiratory: Clear to Auscultation, Normal Air Movement Cardiovascular: Regular Rate, No Murmurs Abdominal: Soft, Other (mild tenderness left CVA, suprapubic region. Both improved from yesterday) Extremities: No Cyanosis, Normal Pulses Skin: No Breakdown, No Significant Lesion Neuro: Sensation Intact (ue and le b/l) Discharge Home Medications Reviewed and agree with Discharge Medication list on patient's Discharge Instruction sheet Instructions to Patient/Family Please see electronic discharge instructions given to patient. JAYNA VANESSA DO 09/12/22 1241: Discharge Summary Discharge Physical Examination Allergies: Coded Allergies: ampicillin (Verified Allergy, Unknown, 09/10/22) diazepam (Verified Allergy, Unknown, 09/10/22) diphenhydramine (Verified Allergy, Unknown, seizures, 09/10/22) propoxyphene HCl (Verified Allergy, Unknown, 09/10/22) Supervisory-Addendum Brief Verification & Attestation Participated in pt care: history, physical Personally performed: exam, history, supervision of care Care discussed with: Medical Student Procedures: n/a Results interpretation: Verified all documentation Verification and Attestation of Medical Student E/M Service A medical student performed and documented this service in my presence. I reviewed and verified all information documented by the medical student and made modifications to such information, when appropriate. I personally performed the physical exam and medical decision making. Jayna Vanessa, Sep 12, 2022,12:36 Patient failed outpatient antibiotic treatment with only oral antibiotic E. coli was sensitive too--macrobid. She was also having worsening left flank pain which was concerning for developing pyelonephritis. After treatment with meropenem, her urinary retention is much better and her dysuria is resolved. Add Urinary Retention to DC diagnoses as well as clarify hyponatremia as Hypovolemic Hyponatremia SLAVA FISCHER Sep 12, 2022 07:26 JAYNA VANESSA DO Sep 12, 2022 12:41
[2022-09-12 08:07] VITALS: BP 142/87
[2022-09-12] MEDS: PANTOPRAZOLE 40 MG (PROTONIX) VIAL IV SCH (08:49)
[2022-09-12 11:17] VITALS: BP 142/87
== END 2022-09-12 11:10 | disposition home or self-care (01) | DRG 690 ==
LOC: 4TH 16:54
PROVIDERS: ADMIT Family Medicine; ATTEND Family Medicine
DX: N39.0 Urinary tract infection, site not specified (principal); E87.1 Hypo-osmolality and hyponatremia; Z16.24 Resistance to multiple antibiotics; E86.0 Dehydration; Z66 Do not resuscitate; R07.9 Chest pain, unspecified; R11.0 Nausea; E03.9 Hypothyroidism, unspecified; B96.20 Unspecified Escherichia coli [E. coli] as the cause of diseases classified elsewhere; F41.9 Anxiety disorder, unspecified; F32.A Depression, unspecified; Z79.890 Hormone replacement therapy; Z28.310 Unvaccinated for COVID-19
CPT/HCPCS: 36415; 80053; 82553; 84484; 85025; 85652; 86141; 87040; 93005